=== PATIENT | female | born 1965 | race Caucasian/White ===

== ENCOUNTER 2022-12-21 08:52 | Outpatient (REF) | payer BC, SELFPAY ==
--- NOTE | ~2022-12-21 | MR_ITS ---
EXAMINATION: MR ANGIOGRAPHY BRAIN WITHOUT CONTRAST CLINICAL INFORMATION: Follow-up aneurysm COMPARISON: MRA head 09/02/2018 TECHNIQUE: 3D [id number] MR angiography was performed through the brain without the use of intravenous gadolinium and axial source images were reviewed along with rotating MIPs. FINDINGS: Stable appearance of a 1 mm anteriorly projecting vascular protrusion arising from the anterior communicating artery (image 73, series 2), which may reflect a small aneurysm. No other new or enlarging intracranial saccular aneurysm. Normal flow-related signal is seen within the anterior and posterior circulation. No focal flow-limiting stenosis or proximal large artery occlusion. No arteriovenous shunting lesion. Limited imaging of the brain demonstrates mild lateral ventriculomegaly somewhat disproportionate to sulcal prominence, stable since prior examination. Partially imaged postsurgical changes in the left parotid region. MR/MR angio head wo con IMPRESSION: Stable appearance of a 1 mm anteriorly projecting vascular protrusion arising from the anterior communicating artery (image 73, series 2), which may reflect a small aneurysm. No other new or enlarging intracranial saccular aneurysm.
== END 2022-12-21 08:53 | disposition home or self-care (01) ==
LOC: HO.MRI 08:52
PROVIDERS: PCP Nurse Practitioner Family; Visit Provider Nurse Practitioner Family
DX: I67.1 Cerebral aneurysm, nonruptured (principal)
CPT/HCPCS: 70544

== ENCOUNTER 2023-03-04 15:40 | Inpatient (IN) | payer BC, MEDICARE, SELFPAY ==
--- NOTE | ~2023-03-04 | XR_ITS ---
EXAMINATION: XR CHEST CLINICAL INFORMATION: Shortness of breath. COMPARISON: None available. TECHNIQUE: 2 views of the chest were obtained. FINDINGS: The cardiomediastinal silhouette is normal. There is no focal lung consolidation or pleural effusion. The bony structures and soft tissues are unremarkable. XR/XR chest 2V IMPRESSION: No active cardiopulmonary disease.
--- NOTE | ~2023-03-04 | CT_ITS ---
EXAMINATION: CT CHEST WITHOUT CONTRAST CLINICAL INFORMATION: Shortness of breath, hypoxia. COMPARISON: No similar priors. TECHNIQUE: Multidetector volumetric CT imaging of the chest was done. Axial MIP volume rendering provided. Sagittal and coronal reformatted images were obtained. This CT examination was performed using dose optimization techniques as appropriate, variously including the following: *Automated exposure control *Adjustment of mA and/or kV according to patient size (this includes techniques or standardized protocols for targeted exams where dose is matched to indication/reason for exam; i.e. extremities or head) *Use of iterative reconstruction technique DLP: 322 mGy-cm FINDINGS: LUNGS: Moderate to severe diffuse bronchial wall thickening with scattered foci of intrabronchial mucous secretions. Scattered mosaic attenuation of lung parenchyma. No dense consolidation. Central airways are patent. Multiple solid bilateral pulmonary nodules largest in the right upper lobe measuring 5 mm (image 129 series 4). MEDIASTINUM: Normal heart size. No pericardial effusion. No mediastinal lymphadenopathy. Normal appearance of the thyroid gland. Evaluation of the hilar structures is limited in the absence of IV contrast. CORONARY ARTERY CALCIFICATION: Multivessel coronary artery calcifications. PLEURA: No pleural effusion or pneumothorax. AXILLA: No axillary lymphadenopathy. UPPER ABDOMEN: Limited noncontrast examination without significant abnormality. OSSEOUS STRUCTURES: No acute or aggressive appearing osseous findings. CT/CT chest wo IV con IMPRESSION: 1. Moderate to severe diffuse bronchial wall thickening with scattered foci of intrabronchial mucous secretions and mosaic attenuation of the lung parenchyma. These findings are suggestive of an infectious or inflammatory process of the small airways with some degree of air trapping. 2. Multiple solid pulmonary nodules, largest measuring 5 mm. Assuming patient has no history of malignancy, recommend follow-up per Fleischner Society recommendations. According to the UPDATED 2017 Fleischner Society recommendations, the advised followup imaging for solid nodules < 6 mm is: LOW RISK PATIENT: No routine follow up. HIGH RISK PATIENT: Optional CT at 12 months. Fleischner guidelines were followed.
[2023-03-04 15:57] VITALS: BP 158/80; BP 182/103; PULSE 77; PULSE 90; RESP 28; TEMP 36.1; O2SAT 94; O2SAT 99; BMI 31.0
--- NOTE | 2023-03-04 16:24 | ECG_ITS ---
Test Reason : cp Blood Pressure : / mmHG Vent. Rate : 075 BPM Atrial Rate : 075 BPM P-R Int : 134 ms QRS Dur : 082 ms QT Int : 374 ms P-R-T Axes : 063 073 -27 degrees QTc Int : 417 ms Normal sinus rhythm T wave abnormality, consider inferior ischemia Abnormal ECG When compared with ECG of 07-JUL-2011 11:32, No significant change was found Referred By: Sue Devries Electronically Signed By:KLAUDIA CLEMENS
--- NOTE | 2023-03-04 16:25 | ED.SOB ---
HPI - SOB/Dyspnea General Chief Complaint: Dyspnea Stated Complaint: diff breathing since yesterday Time Seen by Provider: 03/04/23 16:00 Source: patient Mode of arrival: ambulatory Limitations: no limitations History of Present Illness HPI Narrative: patient is a 58-year-old female who presents emergency department for evaluation of shortness of breath. She reports 4 days ago she began with a runny nose sore throat and a mild cough that became progressively worse. For the past 2 days she has been having shortness of breath with productive cough; yellow phlegm, substernal chest pain. She is a long-time smoker, denies any diagnosed respiratory conditions but does believe that she likely has underlying COPD. she has a pulse oximeter at home and she states that yesterday night her O2 saturation was in the 70s for approximately 1 hour. She did not contact EMS at that time as she did not want to spend the night in the hospital. Her O2 saturation reportedly dropped again today while walking at home, and Today she states that her shortness of breath was much worse and she did not feel safe to remain at home which prompted her to call. She denies known fever, difficulty swallowing, edema, dizziness, lightheadedness, numbness or tingling of the extremities, recent lower extremity redness pain swelling or prolonged immobilization, nor personal history of DVT/ PE/ malignancy. Related Data Home Medications Medication Instructions Recorded Confirmed atorvastatin 80 mg tablet 80 mg PO DAILY 03/04/23 03/04/23 baclofen 10 mg tablet 10 mg PO TID 03/04/23 03/04/23 [id number] 1 tab PO DAILY PRN Headache 03/04/23 03/04/23 50 mg-325 mg-40 mg tablet duloxetine 60 mg capsule,delayed 60 mg PO BID 03/04/23 03/04/23 release gabapentin 300 mg capsule 1,200 mg PO TID 03/04/23 03/04/23 hydrocodone 5 mg-acetaminophen 325 1 tab PO DAILY PRN Pain 03/04/23 03/04/23 mg tablet hyoscyamine sulfate 0.125 mg tablet 0.125 - 0.25 mg PO Q4-6H PRN 03/04/23 03/04/23 Abdominal Discomfort lorazepam 1 mg tablet 1 mg PO DAILY PRN Anxiety 03/04/23 03/04/23 oxcarbazepine 600 mg tablet 600 mg PO BID 03/04/23 03/04/23 prazosin 1 mg capsule 1 mg PO BEDTIME 03/04/23 03/04/23 Allergies Allergy/AdvReac Type Severity Reaction Status Date / Time Iodinated Contrast Media Allergy Intermediate HIVES Unverified 02/29/20 14:45 [IV CONTRAST] acetaminophen [From VICODIN] Allergy Unknown VOMITING Unverified 02/29/20 14:45 hydrocodone [From VICODIN] Allergy Unknown VOMITING Unverified 02/29/20 14:45 latex [LATEX] Allergy Unknown RASH Unverified 02/29/20 14:45 oxycodone [From PERCOCET] Allergy Unknown VOMITING Unverified 02/29/20 14:45 procaine [From Novocain] Allergy Unknown HIVES Unverified 02/29/20 14:45 morphine [MORPHINE] AdvReac Unknown VOMITING Unverified 02/29/20 14:45 Review of Systems Review of Systems: Constitutional : No Fever, No Chills ENT/Mouth : positive sore throat, positive Rhinorrhea, No Swallowing Difficulty Eyes: No Eye Pain, No Swelling, No Redness Cardiovascular : positive Chest Pain, positive SOB, No Orthopnea, no Edema Respiratory : positive Cough, positive Sputum, positive Wheezing, positive dyspnea Gastrointestinal : No Nausea, No Vomiting, No Diarrhea, No abdominal Pain, No Hematochezia, No Melena Genitourinary : No Dysuria, No Urinary Frequency, No Hematuria Musculoskeletal : No joint pain, No Myalgias Skin : No Skin Lesions, No rash Neuro : No Weakness, No Numbness, No Dizziness, No Headache Psych : No Anxiety/Panic, No Depression Heme/Lymph: No Bruising, No Lymphadenopathy Endocrine : No Polyuria, No Polydipsia Yes all other systems are reviewed and are negative [facility] Past Medical History Attestation statement: The following information was validated with the patient. Source: old records reviewed Medical History Mixed hyperlipidemia Peripheral neuropathy Tobacco use disorder Mood disorder Social History Social History Household Members: Spouse Housing: House Do you presently have visiting nurse or other home services: No Alcohol intake: current Alcohol intake frequency: holidays/special occasions only Patient Tobacco Use Status: Current everyday Tobacco user Tobacco use type: Cigarette Cigarette Packs Per Day: 1 Cigarettes Per Day: 20.0 Smoked in Last 30 Days: Yes Patient Interested in Nicotine Replacement: No Use of substances other than those prescribed or required for medical reasons: No Substance Use Type: Marijuana Currently Displaying Signs/Symptoms of Drug Intoxication Withdrawal: No Have you been hit, kicked, punched, or otherwise hurt by someone within the past year? If so, by whom?: No Do you feel safe in your current relationship?: Yes Is there a partner from a previous relationship who is making you feel unsafe now?: No Are you made to feel afraid or neglected: No Advance Directives: No Advance Directives Information Provided: Yes Do you have thoughts of harming others: None Do you have a plan to hurt others: No Plan Recently lost weight without trying: No Eating poorly because of decreased appetite: No Nutrition Risks: No Nutritional Risk Patient : No : No Poor oral hygiene: No Physical Exam Vital Signs: Vital Signs: Last Vital Signs Temp 97 F 03/04/23 15:57 Pulse 80 03/04/23 18:29 Resp 22 H 03/04/23 18:29 BP 172/70 H 03/04/23 18:29 Pulse Ox 94 03/04/23 18:29 O2 Del Method Nasal Cannula 03/04/23 18:29 O2 Flow Rate 4 03/04/23 18:29 Oxygen Flow Rate 4 03/04/23 15:57 BMI result Body Mass Index 31.0 Appearance: Alert.?Oriented to person, place and time. No acute distress.?Normal affect. Eyes: Pupils equal, round and reactive to light.?EOMI. No nystagmus. ENT: Pharynx normal.? TM normal bilaterally.? Neck: Normal inspection.? Neck supple.?? No cervical lymphadenopathy CVS: Heart sounds normal. Normal heart rate and rhythm.? Pulses normal.?? Respiratory: Lung sounds with inspiratory and expiratory wheezing bilaterally, prolonged expiratory phase, increased work of breathing, speaking 1-2 word sentences Abdomen: Soft and non-tender. Normoactive bowel sounds. ? Skin: Skin warm and dry.? Normal skin color.? Extremities: No lower extremity edema.? No calf ttp? Neuro: Moves all extremities spontaneously. Sensation intact bilaterally. CN II-XII intact. No focal neuro deficits. Ambulates with normal steady gait. Course Reevaluation(s) Reevaluation #1: CBC reveals no leukocytosis or anemia. CMP is overall unremarkable. High sensitive troponin 2.9, EKG revealing normal sinus rhythm with T-wave inversion in the inferior leads ( seen on prior EKG in 2011), no ST elevation, no ST depression, ventricular rate of 75 with normal AL interval, and QTC 417, unlikely ACS. COVID- 19 and influenza testing are negative. Chest x-ray reveals no acute cardiopulmonary findings. She reports improvement in her shortness of breath after receiving albuterol 5 mg nebulizer and Solu-Medrol. She is speaking longer sentences. Notable improvement in inspiratory wheezing, however expiratory wheezing and prolonged expiratory phase persists. She ambulated to the bathroom and back to her room, continued to have room air hypoxia with O2 saturation down to 87%. D-dimer below detectable limits, unlikely pulmonary embolism. Plan to obtain CT of the chest for further evaluation/possible pneumonia. Time: 18:45 Reevaluation #2: Spoke with hospitalist accepts patient for admission to medicine service for acute hypoxic respiratory failure, at this time CT of the chest is pending , suspect she likely has underlying COPD given smoking history. Time: 19:53 Medications Administered Generic Name Dose Route Start Last Admin Trade Name Freq PRN Reason Stop Dose Admin Acetaminophen/Butalbital/Caffeine 1 tab 03/04/23 20:07 03/05/23 00:04 Butalb/Acetamin/Caff 50/325/40 Tablet PO 1 tab DAILY PRN Administration Headache Baclofen 10 mg 03/04/23 21:00 03/04/23 22:05 Baclofen 10 Mg Tablet PO 10 mg TID CHAPARRO Administration Benzonatate 200 mg 03/04/23 20:47 03/05/23 00:04 Benzonatate 100 Mg Capsule PO 200 mg TID PRN Administration Cough Duloxetine HCl 60 mg 03/04/23 21:00 03/04/23 22:05 Duloxetine Hcl 60 Mg Capsule. PO 60 mg BID CHAPARRO Administration Enoxaparin Sodium 40 mg 03/04/23 21:00 03/04/23 22:12 Enoxaparin Sodium 40 Mg/0.4 Ml Syringe SUBCUT 40 mg Q24H CHAPARRO Administration Gabapentin 1,200 mg 03/04/23 21:00 03/04/23 22:05 Gabapentin 400 Mg Capsule PO 1,200 mg TID CHAPARRO Administration Azithromycin 500 mg/ Sodium 250 mls @ 125 mls/hr 03/04/23 21:00 03/05/23 00:29 Chloride IV Infused Q24H CHAPARRO Infusion Lorazepam 1 mg 03/04/23 20:07 03/04/23 22:23 Lorazepam 1 Mg Tablet PO 1 mg DAILY PRN Administration Anxiety Melatonin 6 mg 03/04/23 20:31 03/04/23 22:23 Melatonin 3 Mg Tablet PO 6 mg BEDTIME PRN Administration Insomnia Oxcarbazepine 600 mg 03/04/23 21:00 03/04/23 22:05 Oxcarbazepine 300 Mg Tablet PO 600 mg BID CHAPARRO Administration Prazosin HCl 1 mg 03/04/23 21:00 03/04/23 22:15 Prazosin Hcl 1 Mg Capsule PO Not Given BEDTIME CHAPARRO Protocol Sodium Chloride 3 ml 03/05/23 00:00 03/04/23 23:29 0.9 % Sodium Chloride Flush 3 Ml Syringe IVFLUSH Not Given QSHIFT CHAPARRO Discontinued Medications Generic Name Dose Route Start Last Admin Trade Name Katya PRN Reason Stop Dose Admin Hydrocodone Bitart/Acetaminophen 1 tab 03/04/23 23:40 03/05/23 00:04 Hydrocodone Bit/Acetam 5/325 Tablet PO 03/04/23 23:41 1 tab ONCE ONE Administration Albuterol Sulfate 2.5 mg/ 5 mg 03/04/23 17:14 03/04/23 17:18 Albuterol Sulfate 2.5 mg INHALE 03/04/23 17:15 5 mg ONCE ONE Administration Albuterol Sulfate 2.5 mg/ 0 mg 03/04/23 16:30 03/04/23 16:51 Albuterol/Ipratropium 3 ml INHALE 03/04/23 16:31 1 dose ONCE ONE Administration Ceftriaxone Sodium 1 gm/ 50 mls @ 100 mls/hr 03/04/23 19:26 03/04/23 23:06 Sodium Chloride IV 03/04/23 19:55 Infused ONCE ONE Infusion Methylprednisolone Sodium Succinate 125 mg 03/04/23 16:24 03/04/23 17:01 Methylprednisolone Sod Succ 125 Mg/2 Ml Vial IVPUSH 03/04/23 16:25 125 mg ONCE ONE Administration Medical Decision Making Medical Decision Making MDM Narrative: patient is a 58-year-old female with past medical history of hyperlipidemia, migraines, depression, cerebral aneurysm, 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 At the time my examination she has increased work of breathing, speaking 1-2 word sentences despite receiving nebulizer treatment from EMS, is currently on 4 L via nasal cannula her room air O2 saturation was 90% upon EMS arrival. Will obtain CBC to evaluate for leukocytosis/ anemia, CMP and lipase to evaluate for abnormal electrolytes /abnormal renal function/ abnormal hepatic/biliary function, BNP, viral testing EKG and troponin to evaluate for ischemia/ACS. Chest x-ray to evaluate for consolidation/ infiltrate/ mass/ pulmonary congestion and Urinalysis. currently does not meet SIRS criteria, tachypnea but she is afebrile and without tachycardia Differential Diagnosis Differential Diagnoses: The differential diagnosis associated with the presentation includes ( COVID- 19, influenza, coronavirus, adenovirus, CHF, pulmonary embolism, pneumonia, ACS) Admission/Observation Consideration of admission/observation: Escalation of care including admission/observation considered ( considered admission for shortness of breath and room air hypoxia, see course narrative for further detail) Consult Healthcare Provider Management of the patient was discussed with: Hospitalist Lab Data MDM Lab Attestation statement: I reviewed the patient's lab results. ( see course narrative for further detail) 03/04/23 17:30 03/04/23 17:30 Labs: Lab Results 03/04/23 03/04/23 Range/Units 17:30 18:44 WBC 9.7 (4.8-10.8) X10*3/uL RBC 4.83 (4.20-5.50) X10*6/uL Hgb 15.5 (12.0-16.0) g/dl Hct 45.9 (37.0-47.0) % MCV 95.0 (80.0-98.0) fL MCH 32.1 (27.0-33.0) pg MCHC 33.8 (31.0-35.0) g/dl RDW 13.2 (11.0-16.0) % Plt Count 292 (160-400) X10*3/uL MPV 9.6 (9.4-12.3) fL Immature Gran % (Auto) 0.3 (0.0-0.4) % Neut % (Auto) 56.5 (45-73) % Lymph % (Auto) 24.8 (20-40) % [place] % (Auto) 15.6 H (2-11) % Eos % (Auto) 2.3 (0-4) % Baso % (Auto) 0.5 (0-2) % Lymph # (Auto) 2.4 (1.2-4.9) X10*3/uL [place] # (Auto) 1.5 H (0.1-1.2) X10*3/uL Eos # (Auto) 0.2 (0.0-0.4) X10*3/uL Baso # (Auto) 0.1 (0.0-0.2) X10*3/uL Abs Immat Gran (auto) 0.03 (0.00-0.03) X10*3/uL Absolute Neuts (auto) 5.5 (2.0-8.3) x10*3/uL Absolute Nucleated RBC 0.000 (0.0-0.012) X10*3/uL Nucleated RBC % (auto) 0.0 (0.0-0.2) /100WBC PT 10.8 L (11.1-13.3) SEC INR 0.9 (0.9-1.1) D-Dimer High Sensitivty < 150 NG/ML Sodium 141 (135-145) mmol/L Potassium 3.5 (3.3-5.1) mmol/L Chloride 106 (96-108) mmol/L Carbon Dioxide 27 (22-29) mmol/L Anion Gap 12 (12-20) BUN 11 (9-16) mg/dL Creatinine 0.64 (0.5-1.4) mg/dL Estim Creat Clear Calc 86.2 Estimated GFR > 60 Random Glucose 131 H (60-115) mg/dL Calcium 9.8 (8.4-10.2) mg/dL Magnesium 2.1 (1.6-2.6) mg/dL Total Bilirubin 0.3 (0.0-1.0) mg/dL AST 17 (5-31) U/L ALT 13 (0-31) U/L Alkaline Phosphatase 90 (39-117) U/L Troponin I High Sens 2.9 (<3.5-17.0) ng/L B-Natriuretic Peptide 24 (<100) pg/mL Total Protein 7.1 (6.5-8.0) g/dL Albumin 4.2 (3.5-5.0) g/dL Lipase 12 (8-78) U/L COVID-19 (SONAL) Negative (Negative) COVID-19 Clin Com See Note Influenza Type A (DERREK) Negative (Negative) Influenza Type B (DERREK) Negative (Negative) Influenza A & B Note See Note Radiology Impression Discussion of test interpretation with radiology: I have reviewed the radiologist's reading. Radiologist Impression: XR/XR chest 2V IMPRESSION: No active cardiopulmonary disease. CT/CT chest wo IV con IMPRESSION: 1. Moderate to severe diffuse bronchial wall thickening with scattered foci of intrabronchial mucous secretions and mosaic attenuation of the lung parenchyma. These findings are suggestive of an infectious or inflammatory process of the small airways with some degree of air trapping. 2. Multiple solid pulmonary nodules, largest measuring 5 mm. Assuming patient has no history of malignancy, recommend follow-up per Fleischner Society recommendations. According to the UPDATED 2017 Fleischner Society recommendations, the advised followup imaging for solid nodules < 6 mm is: LOW RISK PATIENT: No routine follow up. HIGH RISK PATIENT: Optional CT at 12 months. Independent Historian Clinical information obtained from an independent historian. History obtained from or confirmed by: EMS ( as per HPI) Discharge Plan Discharge Clinical Impression: Acute hypoxemic respiratory failure Patient Disposition: Admitted As Inpatient Interventions: Admission Worksheet (ED) Last Done: 03/04/23 22:57
[2023-03-04 16:33] VITALS: PULSE 75; RESP 26; O2SAT 96
[2023-03-04 16:38] VITALS: BP 184/68; PULSE 75; RESP 20; O2SAT 93
[2023-03-04] MEDS: Albuterol Sulfate 2.5 MG, Albuterol/Iprat 2.5/0.5MG 3 ML 3 ML INHALE (16:51)
[2023-03-04] MEDS: methylPREDNISolone Sod Succ 125 MG/2 ML VIAL IVPUSH (17:01)
[2023-03-04] MEDS: Albuterol Sulfate 2.5 MG, Albuterol Sulfate (0.083%) 2.5 MG 5 MG INHALE (17:18)
[2023-03-04 17:20] VITALS: PULSE 75; RESP 24; O2SAT 95
[2023-03-04 17:36] LABS: MANUAL DIFF FLAG NO
[2023-03-04 17:40] LABS: Basophils Absolute Auto 0.1 X10*3/uL (0.0-0.2); Basophils Percent Auto 0.5 % (0-2); Eosinophils Absolute Auto 0.2 X10*3/uL (0.0-0.4); Eosinophils Percent Auto 2.3 % (0-4); Hematocrit 45.9 % (37.0-47.0); Hemoglobin 15.5 g/dl (12.0-16.0); Imm Gran Abs Auto 0.03 X10*3/uL (0.00-0.03); Imm Gran Pct Auto 0.3 % (0.0-0.4); Lymphocytes Absolute Auto 2.4 X10*3/uL (1.2-4.9); Lymphocytes Percent Auto 24.8 % (20-40); Mean Corpuscular HGB Conc 33.8 g/dl (31.0-35.0); Mean Corpuscular Hemoglobin 32.1 pg (27.0-33.0); Mean Platelet Volume 9.6 fL (9.4-12.3); Monocytes Absolute Auto 1.5 X10*3/uL (0.1-1.2); Monocytes Percent Auto 15.6 % (2-11); Neutrophils Absolute Auto 5.5 x10*3/uL (2.0-8.3); Neutrophils Percent Auto 56.5 % (45-73); Platelet Count 292 X10*3/uL (160-400); Red Blood Count 4.83 X10*6/uL (4.20-5.50); Red Cell Distribution Width 13.2 % (11.0-16.0); SCAN SMEAR FLAG 1; White Blood Count 9.7 X10*3/uL (4.8-10.8)
[2023-03-04 17:43] LABS: INTERNATIONAL NORM RATIO 0.9 (0.9-1.1); Prothrombin Time 10.8 SEC (11.1-13.3)
[2023-03-04 17:56] LABS: Alanine Aminotransferase 13 U/L (0-31); Albumin Level 4.2 g/dL (3.5-5.0); Alkaline Phosphatase 90 U/L (39-117); Anion Gap 12 (12-20); Aspartate Amino Transferase 17 U/L (5-31); Bilirubin Total 0.3 mg/dL (0.0-1.0); Blood Urea Nitrogen 11 mg/dL (9-16); Calcium 9.8 mg/dL (8.4-10.2); Carbon Dioxide 27 mmol/L (22-29); Chloride 106 mmol/L (96-108); Creatinine Clr Calc Pharmacy 86.2; Estimated Glomerular Filt Rate > 60; Glucose Random 131 mg/dL (60-115); Lipase 12 U/L (8-78); Magnesium 2.1 mg/dL (1.6-2.6); Potassium 3.5 mmol/L (3.3-5.1); Sodium 141 mmol/L (135-145); Total Protein 7.1 g/dL (6.5-8.0)
[2023-03-04 17:59] LABS: COVID-19 Test Negative (Negative); IDNOW Serial# BCCEAD1C
[2023-03-04 18:00] LABS: IDNOW Serial# 08D9AD1C; Influenza A Negative (Negative); Influenza B2 Negative (Negative)
[2023-03-04 18:01] LABS: Troponin-I High Sensitivity 2.9 ng/L (<3.5-17.0)
[2023-03-04 18:02] LABS: B Type Natriuretic Peptide 24 pg/mL (<100)
[2023-03-04 18:29] VITALS: BP 172/70; PULSE 80; RESP 22; O2SAT 94
[2023-03-04 18:56] LABS: D Dimer High Sensitivity < 150 NG/ML
--- NOTE | 2023-03-04 19:26 | PHA.MEDREC ---
Pharmacy Consult ? Medication Reconciliation Pharmacy has completed the medication reconciliation. Patient's family had list of medications. Patient was able to confirm all the medications. Reports she has not start prazosin yet but would like to. Her doctor said to start with prazosin 1 tablet then increase 2 tablet if 1 tablet was tolerable.
--- NOTE | 2023-03-04 20:33 | P.HPHOSP_ITS ---
History of Present Illness Date of Service: 03/04/23 Chief Complaint: Dyspnea This is a 58-year-old female with pertinent history of mood disorder, mixed hyperlipidemia, peripheral neuropathy, tobacco use disorder who presents to the emergency department for evaluation of dyspnea. Patient states that about 4 days prior to presentation she has been having runny nose and watering of eyes. Soon she began to develop a cough with sputum production. Subsequently patient was having dyspnea, worse with ambulation and associated wheezing. Patient states her O2 sat at home was in the 70s. Is a former smoker and has smoked for 40 years. No official diagnosis of COPD or asthma. Does admit chills. But no fever. She denies chest discomfort, palpitations, abdominal pain, changes in urinary or bowel habits. In the emergency department, patient requiring supplemental oxygen and continued to have wheezing despite multiple DuoNeb treatments Review of Systems 2 Constitutional: Constitutional: Reports chills and Reports fatigue Cardiovascular: Cardiovascular: Reports dyspnea on exertion Respiratory: Respiratory: Reports cough, Reports dyspnea on exertion and Reports wheezing Gastrointestinal: Gastrointestinal: Reports no additional gastrointestinal complaints Genitourinary: Genitourinary: Reports no additional female genitourinary complaints Endocrine: Endocrine: Reports fatigue Allergic/Immunologic: Allergic/Immunologic: Reports wheezing [facility] Medical History Mixed hyperlipidemia Peripheral neuropathy Tobacco use disorder Mood disorder Pertinent family history: No family history of early CAD Social History Advance Directives: No Advance Directives Information Provided: Yes Meds Allergies Allergy/AdvReac Type Severity Reaction Status Date / Time Iodinated Contrast Media Allergy Intermediate HIVES Unverified 02/29/20 14:45 [IV CONTRAST] acetaminophen [From VICODIN] Allergy Unknown VOMITING Unverified 02/29/20 14:45 hydrocodone [From VICODIN] Allergy Unknown VOMITING Unverified 02/29/20 14:45 latex [LATEX] Allergy Unknown RASH Unverified 02/29/20 14:45 oxycodone [From PERCOCET] Allergy Unknown VOMITING Unverified 02/29/20 14:45 procaine [From Novocain] Allergy Unknown HIVES Unverified 02/29/20 14:45 morphine [MORPHINE] AdvReac Unknown VOMITING Unverified 02/29/20 14:45 Active Medications: Current Medications Acetaminophen/Butalbital/Caffeine (Butalb/Acetamin/Caff 50/325/40 Tablet) 1 tab PO DAILY PRN PRN Reason: Headache Atorvastatin Calcium (Atorvastatin Calcium 80 Mg Tablet) 80 mg PO DAILY CHAPARRO Baclofen (Baclofen 10 Mg Tablet) 10 mg PO TID CHAPARRO Duloxetine HCl (Duloxetine Hcl 60 Mg Capsule.Dr) 60 mg PO BID CHAPARRO Gabapentin (Gabapentin 400 Mg Capsule) 1,200 mg PO TID CHAPARRO Lorazepam (Lorazepam 1 Mg Tablet) 1 mg PO DAILY PRN PRN Reason: Anxiety Non-Formulary Medication (Hyoscyamine Sulfate) 0.125 - 0.25 mg PO Q4-6H PRN PRN Reason: Abdominal Discomfort Oxcarbazepine (Oxcarbazepine 300 Mg Tablet) 600 mg PO BID CHAPARRO Prazosin HCl (Prazosin Hcl 1 Mg Capsule) 1 mg PO BEDTIME CHAPARRO; Protocol Home Medications Medication Instructions Recorded Confirmed Last Taken Type atorvastatin 80 mg tablet 80 mg PO DAILY 03/04/23 03/04/23 03/04/23 History baclofen 10 mg tablet 10 mg PO TID 03/04/23 03/04/23 03/04/23 History jpqkceirdv-qsvhigqtqphzs-[id number] 1 tab PO DAILY PRN Headache 03/04/23 03/04/23 Unknown History 50 mg-325 mg-40 mg tablet duloxetine 60 mg capsule,delayed 60 mg PO BID 03/04/23 03/04/23 03/04/23 History release gabapentin 300 mg capsule 1,200 mg PO TID 03/04/23 03/04/23 03/04/23 History hydrocodone 5 mg-acetaminophen 325 1 tab PO DAILY PRN Pain 03/04/23 03/04/23 Unknown History mg tablet hyoscyamine sulfate 0.125 mg tablet 0.125 - 0.25 mg PO Q4-6H PRN 03/04/23 03/04/23 Unknown History Abdominal Discomfort lorazepam 1 mg tablet 1 mg PO DAILY PRN Anxiety 03/04/23 03/04/23 Unknown History oxcarbazepine 600 mg tablet 600 mg PO BID 03/04/23 03/04/23 03/04/23 History prazosin 1 mg capsule 1 mg PO BEDTIME 03/04/23 03/04/23 03/04/23 History Physical Exam 2 Vital Signs and Narrative: Vital Signs: Last Vital Signs Temp 97 F 03/04/23 15:57 Pulse 80 03/04/23 18:29 Resp 22 H 03/04/23 18:29 BP 172/70 H 03/04/23 18:29 Pulse Ox 94 03/04/23 18:29 O2 Del Method Nasal Cannula 03/04/23 18:29 O2 Flow Rate 4 03/04/23 18:29 Oxygen Flow Rate 4 03/04/23 15:57 BMI result Body Mass Index 31.0 Middle-aged female lying in bed in mild distress on supplemental oxygen Neck supple, no JVD Regular rate and rhythm, S1-S2 heard Bilateral wheezing without crackles Abdomen soft nontender, no guarding, no rigidity Patient is awake, alert and oriented to self, place, time and person ; no focal motor deficit Psych: Normal mood No pedal edema Results Labs 03/04/23 17:30 03/04/23 17:30 Labs: Laboratory Results - last 24 hr 03/04/23 03/04/23 17:30 18:44 MCV 95.0 MCH 32.1 MCHC 33.8 RDW 13.2 Plt Count 292 MPV 9.6 Immature Gran % (Auto) 0.3 Neut % (Auto) 56.5 Lymph % (Auto) 24.8 [place] % (Auto) 15.6 H Eos % (Auto) 2.3 Baso % (Auto) 0.5 Lymph # (Auto) 2.4 [place] # (Auto) 1.5 H Eos # (Auto) 0.2 Baso # (Auto) 0.1 Abs Immat Gran (auto) 0.03 Absolute Neuts (auto) 5.5 Absolute Nucleated RBC 0.000 Nucleated RBC % (auto) 0.0 PT 10.8 L INR 0.9 D-Dimer High Sensitivty < 150 Anion Gap 12 Estim Creat Clear Calc 86.2 Estimated GFR > 60 Random Glucose 131 H Calcium 9.8 Magnesium 2.1 Total Bilirubin 0.3 AST 17 ALT 13 Alkaline Phosphatase 90 B-Natriuretic Peptide 24 Total Protein 7.1 Albumin 4.2 Lipase 12 COVID-19 (SONAL) Negative COVID-19 Clin Com See Note Influenza Type A (DERREK) Negative Influenza Type B (DERREK) Negative Influenza A & B Note See Note Imaging Radiologist's Impressions: Impressions Chest X-Ray 03/04/23 18:01 IMPRESSION: No active cardiopulmonary disease. Assessment and Plan (1) Acute hypoxemic respiratory failure: Status: Acute Plan This is a 58-year-old female with pertinent history of mood disorder, mixed hyperlipidemia, peripheral neuropathy who presents to the emergency department for evaluation of dyspnea. #. Acute hypoxemic respiratory failure due to acute exacerbation of obstructive lung disease. Patient is a former smoker and likely has underlying COPD. Will admit patient with scheduled and p.r.n. DuoNebs. Initiating systemic steroids. Initiating azithromycin for pleiotropic effect. Will need inhalers and discharge and outpatient follow-up with pulmonology. Continue supplemental oxygen and wean as tolerated. Maintain oxygen saturation greater than 88% #. Mixed hyperlipidemia. On statin #. Mood disorder. Continue home mood stabilizers #. Peripheral neuropathy: On gabapentin DVT prophylaxis: Lovenox Full code Admit as inpatient and will require two night minimum hospital stay for supplemental oxygen Time Spent With Patient Time: Total time managing care of this patient today ____ minutes. Quality Stroke Does the patient have a stroke diagnosis?: No VTE Prior VTE?: No VTE Risk Level:: Medical - moderate - high VTE Device Contraindication: Treatment Not Indicated VTE Drug Contraindication: N/A - Med Ordered
[2023-03-04] MEDS: DULoxetine HCl 60 MG CAPSULE.DR PO (22:05)
[2023-03-04] MEDS: Gabapentin 400 MG CAPSULE 1200 MG PO (22:05)
[2023-03-04] MEDS: OXcarbazepine 300 MG TABLET 600 MG PO (22:05)
[2023-03-04] MEDS: Baclofen 10 MG TABLET PO (22:05)
[2023-03-04] MEDS: cefTRIAXone sodium 1 GM in 0.9 % Sodium Chloride 50 ML IV (22:08)
[2023-03-04] MEDS: Enoxaparin Sodium 40 MG/0.4 ML SYRINGE SUBCUT (22:12)
[2023-03-04] MEDS: Melatonin 3 MG TABLET 6 MG PO (22:23)
[2023-03-04] MEDS: LORazepam 1 MG TABLET PO (22:23)
[2023-03-04] MEDS: Azithromycin 500 MG in 0.9 % Sodium Chloride 250 ML 125 MG IV (22:24)
[2023-03-05] VITALS (10 sets, daily range): BP systolic 128–143; BP diastolic 65–74; PULSE 74–99; RESP 18–24; TEMP 36.3–36.4; O2SAT 92–96; BMI 31.0
[2023-03-05] MEDS: Benzonatate 100 MG CAPSULE 200 MG PO ×2 (00:04→21:34)
[2023-03-05] MEDS: HYDROcodone Bit/Acetam 5/325 TABLET 1 TAB PO ×2 (00:04→11:05)
[2023-03-05] MEDS: Butalb/Acetamin/Caff 50/325/40 TABLET 1 TAB PO ×2 (00:04→21:37)
[2023-03-05] MEDS: methylPREDNISolone Sod Succ 40 MG/ML VIAL IVPUSH ×2 (04:08→17:47)
[2023-03-05] MEDS: Albuterol/Iprat 2.5/0.5MG 3 ML AMPUL.NEB INHALE ×4 (07:52→19:56)
[2023-03-05] MEDS: Gabapentin 400 MG CAPSULE 1200 MG PO ×3 (08:16→21:37)
[2023-03-05 08:17] LABS: Alanine Aminotransferase 11 U/L (0-31); Albumin Level 4.1 g/dL (3.5-5.0); Alkaline Phosphatase 80 U/L (39-117); Anion Gap 16 (12-20); Aspartate Amino Transferase 15 U/L (5-31); Bilirubin Total 0.2 mg/dL (0.0-1.0); Blood Urea Nitrogen 13 mg/dL (9-16); Calcium 9.8 mg/dL (8.4-10.2); Carbon Dioxide 27 mmol/L (22-29); Chloride 105 mmol/L (96-108); Creatinine Clr Calc Pharmacy 86.2; Estimated Glomerular Filt Rate > 60; Glucose Random 94 mg/dL (60-115); Potassium 5.2 mmol/L (3.3-5.1); Sodium 143 mmol/L (135-145); Total Protein 6.9 g/dL (6.5-8.0)
[2023-03-05] MEDS: DULoxetine HCl 60 MG CAPSULE.DR PO ×2 (08:17→21:37)
[2023-03-05] MEDS: OXcarbazepine 300 MG TABLET 600 MG PO ×2 (08:17→21:34)
[2023-03-05] MEDS: Baclofen 10 MG TABLET PO ×3 (08:17→21:37)
[2023-03-05] MEDS: Atorvastatin Calcium 80 MG TABLET PO (08:17)
[2023-03-05] MEDS: 0.9 % Sodium Chloride Flush 3 ML SYRINGE IVFLUSH ×3 (11:06→21:44)
--- NOTE | 2023-03-05 14:04 | HO.PM.IMPN ---
Subjective Subjective Date of Service: 03/05/23 Interval History: seen and examined this morning follow up for COPD exacerbation has ongoing cough Review of Systems Review of Systems: Yes all other systems are reviewed and are negative Constitutional Constitutional: Denies chills and Denies fever(s) Cardiovascular Cardiovascular: Denies chest pain Respiratory Respiratory: Reports cough Gastrointestinal Gastrointestinal: Denies abdominal pain Physical Exam Vital Signs: Vital Signs: Last Vital Signs Temp 97.5 F 03/05/23 07:44 Pulse 80 03/05/23 12:11 Resp 22 H 03/05/23 12:11 BP 142/74 H 03/05/23 07:44 Pulse Ox 92 03/05/23 12:11 O2 Del Method Room Air 03/05/23 12:11 O2 Flow Rate 1 03/05/23 12:11 Oxygen Flow Rate 4 03/04/23 15:57 BMI result Body Mass Index 31.0 Const: General: comfortable and no acute distress; No alert or awake Nutritional Appearance: overweight Orientation/consciousness: patient oriented x3 Resp: Other: b/l expiratory rhochi Effort & Inspection: normal respiratory effort, able to speak in complete sentences, no respiratory distress and no use of accessory muscles Cardio: Rate: regular rate GI: Inspection: No distended Palpation (GI): Soft to palpation Neuro: General: patient oriented x3, moves all extremities and CN's II-XI intact bilaterally Extrem: General: Yes no pedal edema Objective Data Active Medications Acetaminophen (Acetaminophen 325 Mg Tablet) 650 mg PO Q6H PRN PRN Reason: Pain, Mild (Pain Scale 1-3) Acetaminophen/Butalbital/Caffeine (Butalb/Acetamin/Caff 50/325/40 Tablet) 1 tab PO DAILY PRN PRN Reason: Headache Last Admin: 03/05/23 00:04 Dose: 1 tab Documented By: OCHOA Hydrocodone Bitart/Acetaminophen (Hydrocodone Bit/Acetam 5/325 Tablet) 1 tab PO DAILY PRN PRN Reason: Pain, Moderate(Pain Scale 4-6) Last Admin: 03/05/23 11:05 Dose: 1 tab Documented By: NITZA Albuterol/Ipratropium (Albuterol/Iprat 2.5/0.5mg 3 Ml Ampul.Neb) 3 ml INHALE RQ4H WHILE AWAKE [facility] Last Admin: 03/05/23 11:28 Dose: 3 ml Documented By: MARYLU Albuterol/Ipratropium (Albuterol/Iprat 2.5/0.5mg 3 Ml Ampul.Neb) 3 ml INHALE Q4H PRN PRN Reason: Wheezing Atorvastatin Calcium (Atorvastatin Calcium 80 Mg Tablet) 80 mg PO DAILY [facility] Last Admin: 03/05/23 08:17 Dose: 80 mg Documented By: NITZA Baclofen (Baclofen 10 Mg Tablet) 10 mg PO TID [facility] Last Admin: 03/05/23 08:17 Dose: 10 mg Documented By: NITZA Benzonatate (Benzonatate 100 Mg Capsule) 200 mg PO TID PRN PRN Reason: Cough Last Admin: 03/05/23 00:04 Dose: 200 mg Documented By: OCHOA Duloxetine HCl (Duloxetine Hcl 60 Mg Capsule.Dr) 60 mg PO BID [facility] Last Admin: 03/05/23 08:17 Dose: 60 mg Documented By: NITZA Enoxaparin Sodium (Enoxaparin Sodium 40 Mg/0.4 Ml Syringe) 40 mg SUBCUT Q24H [facility] Last Admin: 03/04/23 22:12 Dose: 40 mg Documented By: FRANK Gabapentin (Gabapentin 400 Mg Capsule) 1,200 mg PO TID [facility] Last Admin: 03/05/23 08:16 Dose: 1,200 mg Documented By: NITZA Azithromycin 500 mg/ Sodium (Chloride) 250 mls @ 125 mls/hr IV Q24H [facility] Last Infusion: 03/05/23 00:29 Dose: Infused Documented By: OCHOA Lorazepam (Lorazepam 1 Mg Tablet) 1 mg PO DAILY PRN PRN Reason: Anxiety Last Admin: 03/04/23 22:23 Dose: 1 mg Documented By: FRANK Melatonin (Melatonin 3 Mg Tablet) 6 mg PO BEDTIME PRN PRN Reason: Insomnia Last Admin: 03/04/23 22:23 Dose: 6 mg Documented By: FRANK Methylprednisolone Sodium Succinate (Methylprednisolone Sod Succ 40 Mg/Ml Vial) 40 mg IVPUSH Q12H [facility] Last Admin: 03/05/23 04:08 Dose: 40 mg Documented By: OCHOA Non-Formulary Medication (Hyoscyamine Sulfate) 0.125 - 0.25 mg PO Q4-6H PRN PRN Reason: Abdominal Discomfort Ondansetron HCl (Ondansetron Hcl 4 Mg/2 Ml Vial) 4 mg IVPUSH Q8H PRN PRN Reason: Nausea and Vomiting Oxcarbazepine (Oxcarbazepine 300 Mg Tablet) 600 mg PO BID [facility] Last Admin: 03/05/23 08:17 Dose: 600 mg Documented By: NITZA Prazosin HCl (Prazosin Hcl 1 Mg Capsule) 1 mg PO BEDTIME [facility]; Protocol Last Admin: 03/04/23 22:15 Dose: Not Given Documented By: FRANK Non-Admin Reason: Med Not Available Sodium Chloride (0.9 % Sodium Chloride Flush 3 Ml Syringe) 3 ml IVFLUSH QSHIFT [facility] Last Admin: 03/05/23 11:06 Dose: 3 ml Documented By: NITZA Labs 03/04/23 17:30 03/05/23 07:20 Labs: Laboratory Results - last 24 hr 03/04/23 03/04/23 03/05/23 17:30 18:44 07:20 MCV 95.0 MCH 32.1 MCHC 33.8 RDW 13.2 Plt Count 292 MPV 9.6 Immature Gran % (Auto) 0.3 Neut % (Auto) 56.5 Lymph % (Auto) 24.8 [place] % (Auto) 15.6 H Eos % (Auto) 2.3 Baso % (Auto) 0.5 Lymph # (Auto) 2.4 [place] # (Auto) 1.5 H Eos # (Auto) 0.2 Baso # (Auto) 0.1 Abs Immat Gran (auto) 0.03 Absolute Neuts (auto) 5.5 Absolute Nucleated RBC 0.000 Nucleated RBC % (auto) 0.0 PT 10.8 L INR 0.9 D-Dimer High Sensitivty < 150 Anion Gap 12 16 Estim Creat Clear Calc 86.2 86.2 Estimated GFR > 60 > 60 Random Glucose 131 H 94 Calcium 9.8 9.8 Magnesium 2.1 Total Bilirubin 0.3 0.2 AST 17 15 ALT 13 11 Alkaline Phosphatase 90 80 B-Natriuretic Peptide 24 Total Protein 7.1 6.9 Albumin 4.2 4.1 Lipase 12 COVID-19 (SONAL) Negative COVID-19 Clin Com See Note Influenza Type A (DERREK) Negative Influenza Type B (DERREK) Negative Influenza A & B Note See Note Assessment and Plan (1) Acute hypoxemic respiratory failure: Status: Acute Plan This is a 58-year-old female with pertinent history of mood disorder, mixed hyperlipidemia, peripheral neuropathy who presents to the emergency department for evaluation of dyspnea. Acute hypoxemic respiratory failure due to acute exacerbation of presumed COPD Covid,, flu, RSV negative continue scheduled and p.r.n. DuoNebs, steroids, azithromycin will likely need outpatient follow up Continue supplemental oxygen and wean as tolerated Pulmonary nodules CT chest showing multiple pulm nodules pt reports having chest CT for cancer screening as outpatient and is aware of pulm nodules recommend outpatient follow up Milk Hyperkalemia k 5.2 follow BMP hyperlipidemia continue statin Mood Continue home mood stabilizers Peripheral neuropathy continue gabapentin DVT prophylaxis: Lovenox Full code Requires ongoing inpatient stay for systemic steroids, supplemental oxygen and close monitoring of respiratory status Time Spent With Patient Time: Total time managing care of this patient today ____ minutes. Quality Stroke Does the patient have a stroke diagnosis?: No VTE Prior VTE?: No VTE Risk Level:: Medical - moderate - high VTE Device Contraindication: Treatment Not Indicated VTE Drug Contraindication: N/A - Med Ordered
[2023-03-05] MEDS: Melatonin 3 MG TABLET 6 MG PO (21:34)
[2023-03-05] MEDS: Prazosin HCL 1 MG CAPSULE PO (21:36)
[2023-03-05] MEDS: LORazepam 1 MG TABLET PO (21:36)
[2023-03-05] MEDS: Azithromycin 500 MG in 0.9 % Sodium Chloride 250 ML 125 MG IV (21:38)
[2023-03-05] MEDS: Enoxaparin Sodium 40 MG/0.4 ML SYRINGE SUBCUT (21:38)
[2023-03-06] VITALS (8 sets, daily range): BP systolic 150–163; BP diastolic 62–79; PULSE 83–97; RESP 18–24; TEMP 35.5–36.4; O2SAT 90–95
[2023-03-06] MEDS: methylPREDNISolone Sod Succ 40 MG/ML VIAL IVPUSH ×3 (06:42→19:56)
--- NOTE | 2023-03-06 06:46 | PC.NURSE ---
patient takes pain meds scheduled at home around 6am, 1-2pm, and 8pm. She states her pain is not controlled due to pain med schedule being different from home.
[2023-03-06] MEDS: Albuterol/Iprat 2.5/0.5MG 3 ML AMPUL.NEB INHALE ×4 (06:48→20:43)
[2023-03-06] MEDS: Baclofen 10 MG TABLET PO ×3 (07:33→20:04)
[2023-03-06] MEDS: Atorvastatin Calcium 80 MG TABLET PO ×2 (07:34→20:04)
[2023-03-06] MEDS: DULoxetine HCl 60 MG CAPSULE.DR PO ×2 (07:35→20:04)
[2023-03-06] MEDS: OXcarbazepine 300 MG TABLET 600 MG PO ×2 (07:36→20:04)
[2023-03-06] MEDS: Gabapentin 400 MG CAPSULE 1200 MG PO ×3 (07:36→20:04)
[2023-03-06] MEDS: Benzonatate 100 MG CAPSULE 200 MG PO (07:36)
[2023-03-06] MEDS: HYDROcodone Bit/Acetam 5/325 TABLET 1 TAB PO ×2 (07:39→20:17)
[2023-03-06 09:14] LABS: Anion Gap 14 (12-20); Blood Urea Nitrogen 10 mg/dL (9-16); Calcium 9.9 mg/dL (8.4-10.2); Carbon Dioxide 27 mmol/L (22-29); Chloride 102 mmol/L (96-108); Creatinine Clr Calc Pharmacy 84.8; Estimated Glomerular Filt Rate > 60; Glucose Random 102 mg/dL (60-115); Sodium 139 mmol/L (135-145)
[2023-03-06] MEDS: guaiFENesin LA 600 MG TAB.ER.12H PO ×2 (11:58→20:04)
[2023-03-06] MEDS: 0.9 % Sodium Chloride Flush 3 ML SYRINGE IVFLUSH ×3 (11:59→20:05)
[2023-03-06] MEDS: Lidocaine 4 % Patch ADH..PATCH 1 PATCH TRANSDERMA (12:58)
--- NOTE | 2023-03-06 15:51 | P.PNIM_ITS ---
Subjective Subjective Date of Service: 03/06/23 Interval History: seen and examined this morning follow up for copd exacerbation still with dypsnea on exertion, productive cough no fever, chills no overnight events Review of Systems Review of Systems: Yes all other systems are reviewed and are negative Constitutional Constitutional: Denies chills and Denies fever(s) Cardiovascular Cardiovascular: Denies chest pain, Denies palpitations and Reports dyspnea Respiratory Respiratory: Reports cough and Reports dyspnea Endocrine Endocrine: Denies palpitations Physical Exam 2 Vital Signs: Vital Signs: Last Vital Signs Temp 95.9 F L 03/06/23 15:25 Pulse 86 03/06/23 15:25 Resp 18 03/06/23 15:25 BP 150/78 H 03/06/23 15:25 Pulse Ox 93 03/06/23 15:25 O2 Del Method Nasal Cannula 03/06/23 15:25 O2 Flow Rate 1 03/06/23 15:25 Oxygen Flow Rate 4 03/04/23 15:57 BMI result Body Mass Index 31.0 Const: General: comfortable and no acute distress; No alert or awake N utritional Appearance: overweight Orientation/consciousness: patient oriented x3 Resp: Other: b/l expiratory wheeze Effort & Inspection: normal respiratory effort, able to speak in complete sentences, no respiratory distress and no use of accessory muscles Cardio: Rate: regular rate GI: Inspection: No distended Palpation (GI): Soft to palpation Neuro: General: patient oriented x3, moves all extremities and CN's II-XI intact bilaterally Extrem: General: Yes no pedal edema Objective Data Active Medications Acetaminophen (Acetaminophen 325 Mg Tablet) 650 mg PO Q6H PRN PRN Reason: Pain, Mild (Pain Scale 1-3) Acetaminophen/Butalbital/Caffeine (Butalb/Acetamin/Caff 50/325/40 Tablet) 1 tab PO DAILY PRN PRN Reason: Headache Last Admin: 03/05/23 21:37 Dose: 1 tab Documented By: BRINA Hydrocodone Bitart/Acetaminophen (Hydrocodone Bit/Acetam 5/325 Tablet) 1 tab PO DAILY PRN PRN Reason: Pain, Moderate(Pain Scale 4-6) Last Admin: 03/06/23 07:39 Dose: 1 tab Documented By: DAVID Albuterol/Ipratropium (Albuterol/Iprat 2.5/0.5mg 3 Ml Ampul.Neb) 3 ml INHALE RQ4H WHILE AWAKE [facility] Last Admin: 03/06/23 11:31 Dose: 3 ml Documented By: WILL Albuterol/Ipratropium (Albuterol/Iprat 2.5/0.5mg 3 Ml Ampul.Neb) 3 ml INHALE Q4H PRN PRN Reason: Wheezing Atorvastatin Calcium (Atorvastatin Calcium 80 Mg Tablet) 80 mg PO BEDTIME [facility] Baclofen (Baclofen 10 Mg Tablet) 10 mg PO TID [facility] Last Admin: 03/06/23 14:17 Dose: 10 mg Documented By: DAVID Benzonatate (Benzonatate 100 Mg Capsule) 200 mg PO TID PRN PRN Reason: Cough Last Admin: 03/06/23 07:36 Dose: 200 mg Documented By: DAVID Duloxetine HCl (Duloxetine Hcl 60 Mg Capsule.Dr) 60 mg PO BID [facility] Last Admin: 03/06/23 07:35 Dose: 60 mg Documented By: DAVID Enoxaparin Sodium (Enoxaparin Sodium 40 Mg/0.4 Ml Syringe) 40 mg SUBCUT Q24H [facility] Last Admin: 03/05/23 21:38 Dose: 40 mg Documented By: BRINA Gabapentin (Gabapentin 400 Mg Capsule) 1,200 mg PO TID [facility] Last Admin: 03/06/23 14:17 Dose: 1,200 mg Documented By: DAVID Guaifenesin (Guaifenesin La 600 Mg Tab.Er.12h) 600 mg PO BID [facility] Last Admin: 03/06/23 11:58 Dose: 600 mg Documented By: DAVID-KULDIP Azithromycin 500 mg/ Sodium (Chloride) 250 mls @ 125 mls/hr IV Q24H [facility] Last Infusion: 03/06/23 00:27 Dose: Infused Documented By: TWILA Lidocaine (Lidocaine 4 % Patch Adh..Patch) 1 patch TRANSDERMA DAILY [facility]; Protocol Last Admin: 03/06/23 12:58 Dose: 1 patch Documented By: DAVID Lorazepam (Lorazepam 1 Mg Tablet) 1 mg PO DAILY PRN PRN Reason: Anxiety Last Admin: 03/05/23 21:36 Dose: 1 mg Documented By: BRINA Melatonin (Melatonin 3 Mg Tablet) 6 mg PO BEDTIME PRN PRN Reason: Insomnia Last Admin: 03/05/23 21:34 Dose: 6 mg Documented By: BRINA Methylprednisolone Sodium Succinate (Methylprednisolone Sod Succ 40 Mg/Ml Vial) 40 mg IVPUSH Q8H [facility] Last Admin: 03/06/23 11:59 Dose: 40 mg Documented By: ELIZABETH Non-Formulary Medication (Hyoscyamine Sulfate) 0.125 - 0.25 mg PO Q4-6H PRN PRN Reason: Abdominal Discomfort Ondansetron HCl (Ondansetron Hcl 4 Mg/2 Ml Vial) 4 mg IVPUSH Q8H PRN PRN Reason: Nausea and Vomiting Oxcarbazepine (Oxcarbazepine 300 Mg Tablet) 600 mg PO BID [facility] Last Admin: 03/06/23 07:36 Dose: 600 mg Documented By: DAVID Prazosin HCl (Prazosin Hcl 1 Mg Capsule) 1 mg PO BEDTIME [facility]; Protocol Last Admin: 03/05/23 21:36 Dose: 1 mg Documented By: BRINA Sodium Chloride (0.9 % Sodium Chloride Flush 3 Ml Syringe) 3 ml IVFLUSH QSHIFT [facility] Last Admin: 03/06/23 11:59 Dose: 3 ml Documented By: ELIZABETH Labs 03/04/23 17:30 03/06/23 08:35 Labs: Laboratory Results - last 24 hr 03/06/23 08:35 Anion Gap 14 Estim Creat Clear Calc 84.8 Estimated GFR > 60 Random Glucose 102 Calcium 9.9 Assessment and Plan (1) Acute hypoxemic respiratory failure: Status: Acute Plan This is a 58-year-old female with pertinent history of mood disorder, mixed hyperlipidemia, peripheral neuropathy who presents to the emergency department for evaluation of dyspnea. Acute hypoxemic respiratory failure due to acute exacerbation of presumed COPD Covid, flu, RSV negative continue scheduled and p.r.nNa Sof[place], increase frequnc of steroids continue azithromycin , will add ceftriaxone will likely need outpatient follow up with pulmonology Continue supplemental oxygen and wean as tolerated, currently down to 1L Pulmonary nodules CT chest showing multiple pulm nodules pt reports having chest CT for cancer screening as outpatient and is aware of pulm nodules recommend outpatient follow up Mild Hyperkalemia resolved without intervention hyperlipidemia continue statin Mood Continue home meds temporal neuralgia/occipital neuraliga continue gabapentin DVT prophylaxis: Lovenox Full code attending - dr. stone Requires ongoing inpatient stay for systemic steroids, supplemental oxygen and close monitoring of respiratory status Time Spent With Patient Time: Total time managing care of this patient today ____ minutes. Quality Stroke Does the patient have a stroke diagnosis?: No VTE Prior VTE?: No VTE Risk Level:: Medical - moderate - high VTE Device Contraindication: Treatment Not Indicated VTE Drug Contraindication: N/A - Med Ordered
[2023-03-06] MEDS: cefTRIAXone sodium 1 GM in 0.9 % Sodium Chloride 50 ML IV (16:34)
[2023-03-06] MEDS: Melatonin 3 MG TABLET 6 MG PO (20:03)
[2023-03-06] MEDS: Azithromycin 500 MG in 0.9 % Sodium Chloride 250 ML 125 MG IV (20:04)
[2023-03-06] MEDS: Prazosin HCL 1 MG CAPSULE PO (20:04)
[2023-03-06] MEDS: LORazepam 1 MG TABLET PO (20:04)
[2023-03-06] MEDS: Enoxaparin Sodium 40 MG/0.4 ML SYRINGE SUBCUT (20:05)
[2023-03-07] VITALS (8 sets, daily range): BP systolic 124–164; BP diastolic 68–84; PULSE 77–94; RESP 18–20; TEMP 36.4–37.1; O2SAT 91–94
[2023-03-07] MEDS: methylPREDNISolone Sod Succ 40 MG/ML VIAL IVPUSH ×3 (03:15→17:28)
[2023-03-07] MEDS: OLANZapine 10 MG VIAL 5 MG IM (04:56)
[2023-03-07] MEDS: guaiFENesin LA 600 MG TAB.ER.12H PO ×2 (07:45→20:40)
[2023-03-07] MEDS: Gabapentin 400 MG CAPSULE 1200 MG PO ×3 (07:46→20:40)
[2023-03-07] MEDS: Baclofen 10 MG TABLET PO ×3 (07:46→20:40)
[2023-03-07] MEDS: OXcarbazepine 300 MG TABLET 600 MG PO ×2 (07:47→20:39)
[2023-03-07] MEDS: DULoxetine HCl 60 MG CAPSULE.DR PO ×2 (07:47→20:40)
[2023-03-07] MEDS: 0.9 % Sodium Chloride Flush 3 ML SYRINGE IVFLUSH ×2 (07:47→15:11)
[2023-03-07] MEDS: HYDROcodone Bit/Acetam 5/325 TABLET 1 TAB PO ×2 (07:48→20:39)
[2023-03-07] MEDS: Albuterol/Iprat 2.5/0.5MG 3 ML AMPUL.NEB INHALE ×4 (07:57→19:17)
--- NOTE | 2023-03-07 14:28 | HO.PM.IMPN ---
Subjective Subjective Date of Service: 03/07/23 Interval History: seen and examined this morning follow up for presumed copd exacerbation feeling a little better, less phlegm production still requiring o2 Constitutional Constitutional: Denies chills and Denies fever(s) Cardiovascular Cardiovascular: Denies chest pain, Denies palpitations and Reports dyspnea on exertion Respiratory Respiratory: Reports cough and Reports dyspnea on exertion Gastrointestinal Gastrointestinal: Denies abdominal pain Endocrine Endocrine: Denies palpitations Physical Exam Vital Signs: Vital Signs: Last Vital Signs Temp 97.7 F 03/07/23 07:42 Pulse 82 03/07/23 11:43 Resp 18 03/07/23 11:43 BP 162/82 H 03/07/23 07:42 Pulse Ox 94 03/07/23 07:42 O2 Del Method Nasal Cannula 03/07/23 07:42 O2 Flow Rate 1 03/07/23 07:42 Oxygen Flow Rate 4 03/04/23 15:57 BMI result Body Mass Index 31.0 Const: General: comfortable and no acute distress; No alert or awake Nutritional Appearance: overweight Orientation/consciousness: patient oriented x3 Resp: Other: b/l expiratory wheeze Effort & Inspection: normal respiratory effort, able to speak in complete sentences, no respiratory distress and no use of accessory muscles Cardio: Rate: regular rate GI: Inspection: No distended Palpation (GI): Soft to palpation Neuro: General: patient oriented x3, moves all extremities and CN's II-XI intact bilaterally Extrem: General: Yes no pedal edema Objective Data Active Medications Acetaminophen (Acetaminophen 325 Mg Tablet) 650 mg PO Q6H PRN PRN Reason: Pain, Mild (Pain Scale 1-3) Acetaminophen/Butalbital/Caffeine (Butalb/Acetamin/Caff 50/325/40 Tablet) 1 tab PO DAILY PRN PRN Reason: Headache Last Admin: 03/05/23 21:37 Dose: 1 tab Documented By: BRINA Hydrocodone Bitart/Acetaminophen (Hydrocodone Bit/Acetam 5/325 Tablet) 1 tab PO DAILY PRN PRN Reason: Pain, Moderate(Pain Scale 4-6) Last Admin: 03/07/23 07:48 Dose: 1 tab Documented By: DAVID Albuterol/Ipratropium (Albuterol/Iprat 2.5/0.5mg 3 Ml Ampul.Neb) 3 ml INHALE RQ4H WHILE AWAKE [facility] Last Admin: 03/07/23 11:43 Dose: 3 ml Documented By: WILL Albuterol/Ipratropium (Albuterol/Iprat 2.5/0.5mg 3 Ml Ampul.Neb) 3 ml INHALE Q4H PRN PRN Reason: Wheezing Atorvastatin Calcium (Atorvastatin Calcium 80 Mg Tablet) 80 mg PO BEDTIME [facility] Last Admin: 03/06/23 20:04 Dose: 80 mg Documented By: BRINA Baclofen (Baclofen 10 Mg Tablet) 10 mg PO TID [facility] Last Admin: 03/07/23 14:16 Dose: 10 mg Documented By: DAVID Benzonatate (Benzonatate 100 Mg Capsule) 200 mg PO TID PRN PRN Reason: Cough Last Admin: 03/06/23 07:36 Dose: 200 mg Documented By: DAVID Duloxetine HCl (Duloxetine Hcl 60 Mg Capsule.Dr) 60 mg PO BID [facility] Last Admin: 03/07/23 07:47 Dose: 60 mg Documented By: DAVID Enoxaparin Sodium (Enoxaparin Sodium 40 Mg/0.4 Ml Syringe) 40 mg SUBCUT Q24H [facility] Last Admin: 03/06/23 20:05 Dose: 40 mg Documented By: BRINA Gabapentin (Gabapentin 400 Mg Capsule) 1,200 mg PO TID [facility] Last Admin: 03/07/23 14:16 Dose: 1,200 mg Documented By: DAVID Guaifenesin (Guaifenesin [place] 600 Mg Tab.Er.12h) 600 mg PO BID [facility] Last Admin: 03/07/23 07:45 Dose: 600 mg Documented By: DAVID Azithromycin 500 mg/ Sodium (Chloride) 250 mls @ 125 mls/hr IV Q24H [facility] Last Infusion: 03/06/23 23:29 Dose: Infused Documented By: LANCE Ceftriaxone Sodium 1 gm/ (Sodium Chloride) 50 mls @ 100 mls/hr IV Q24H [facility] Last Infusion: 03/06/23 17:21 Dose: Infused Documented By: SHAKIRA Lidocaine (Lidocaine 4 % Patch Adh..Patch) 1 patch TRANSDERMA DAILY [facility]; Protocol Last Admin: 03/07/23 07:48 Dose: Not Given Documented By: DAVID Non-Admin Reason: Patient Refused Lorazepam (Lorazepam 1 Mg Tablet) 1 mg PO DAILY PRN PRN Reason: Anxiety Last Admin: 03/06/23 20:04 Dose: 1 mg Documented By: BRINA Melatonin (Melatonin 3 Mg Tablet) 6 mg PO BEDTIME PRN PRN Reason: Insomnia Last Admin: 03/06/23 20:03 Dose: 6 mg Documented By: BRINA Methylprednisolone Sodium Succinate (Methylprednisolone Sod Succ 40 Mg/Ml Vial) 40 mg IVPUSH Q8H [facility] Last Admin: 03/07/23 12:09 Dose: 40 mg Documented By: DAVID Non-Formulary Medication (Hyoscyamine Sulfate) 0.125 - 0.25 mg PO Q4-6H PRN PRN Reason: Abdominal Discomfort Ondansetron HCl (Ondansetron Hcl 4 Mg/2 Ml Vial) 4 mg IVPUSH Q8H PRN PRN Reason: Nausea and Vomiting Oxcarbazepine (Oxcarbazepine 300 Mg Tablet) 600 mg PO BID [facility] Last Admin: 03/07/23 07:47 Dose: 600 mg Documented By: DAVID Prazosin HCl (Prazosin Hcl 1 Mg Capsule) 1 mg PO BEDTIME [facility]; Protocol Last Admin: 03/06/23 20:04 Dose: 1 mg Documented By: BRINA Sodium Chloride (0.9 % Sodium Chloride Flush 3 Ml Syringe) 3 ml IVFLUSH QSHIFT [facility] Last Admin: 03/07/23 07:47 Dose: 3 ml Documented By: DAVID Labs 03/04/23 17:30 03/06/23 08:35 Assessment and Plan (1) Acute hypoxemic respiratory failure: Status: Acute Plan This is a 58-year-old female with pertinent history of mood disorder, mixed hyperlipidemia, peripheral neuropathy who presents to the emergency department for evaluation of dyspnea. Acute hypoxemic respiratory failure due to acute exacerbation of presumed COPD Covid, flu, RSV negative continue scheduled and p.r.n. [place], systemic steroids continue azithromycin , will add ceftriaxone for possible component of pneumonia Continue supplemental oxygen and wean as tolerated, currently down to 1L - if remains hypoxic may need home o2 eval will likely need outpatient follow up with pulmonology Pulmonary nodules CT chest showing multiple pulm nodules pt reports having chest CT for cancer screening as outpatient and is aware of pulm nodules recommend outpatient follow up Mild Hyperkalemia resolved without intervention hyperlipidemia continue statin Mood Continue home meds temporal neuralgia/occipital neuraliga continue gabapentin DVT prophylaxis: Lovenox Full code attending - dr. chamberlain Requires ongoing inpatient stay for systemic steroids, supplemental oxygen and close monitoring of respiratory status Time Spent With Patient Time: Total time managing care of this patient today ____ minutes. Quality Stroke Does the patient have a stroke diagnosis?: No VTE Prior VTE?: No VTE Risk Level:: Medical - moderate - high VTE Device Contraindication: Treatment Not Indicated VTE Drug Contraindication: N/A - Med Ordered
[2023-03-07] MEDS: cefTRIAXone sodium 1 GM in 0.9 % Sodium Chloride 50 ML IV (15:08)
[2023-03-07] MEDS: Atorvastatin Calcium 80 MG TABLET PO (20:40)
[2023-03-07] MEDS: Prazosin HCL 1 MG CAPSULE PO (20:40)
[2023-03-07] MEDS: Benzonatate 100 MG CAPSULE 200 MG PO (20:44)
[2023-03-07] MEDS: Enoxaparin Sodium 40 MG/0.4 ML SYRINGE SUBCUT (20:46)
[2023-03-07] MEDS: Azithromycin 500 MG in 0.9 % Sodium Chloride 250 ML 125 MG IV (20:47)
[2023-03-07] MEDS: Melatonin 3 MG TABLET 6 MG PO (21:47)
[2023-03-07] MEDS: LORazepam 1 MG TABLET PO (21:47)
[2023-03-08 03:40] VITALS: BP 145/48; PULSE 98; RESP 16; TEMP 36.4; O2SAT 95
[2023-03-08] MEDS: Butalb/Acetamin/Caff 50/325/40 TABLET 1 TAB PO (04:41)
[2023-03-08] MEDS: methylPREDNISolone Sod Succ 40 MG/ML VIAL IVPUSH (06:16)
[2023-03-08] MEDS: 0.9 % Sodium Chloride Flush 3 ML SYRINGE IVFLUSH (06:16)
[2023-03-08 07:55] VITALS: BP 154/80; PULSE 78; RESP 16; TEMP 36.6; O2SAT 94
[2023-03-08] MEDS: Albuterol/Iprat 2.5/0.5MG 3 ML AMPUL.NEB INHALE ×2 (08:00→12:04)
[2023-03-08 08:02] VITALS: PULSE 78; RESP 18; O2SAT 93
[2023-03-08] MEDS: Baclofen 10 MG TABLET PO (08:34)
[2023-03-08] MEDS: DULoxetine HCl 60 MG CAPSULE.DR PO (08:34)
[2023-03-08] MEDS: OXcarbazepine 300 MG TABLET 600 MG PO (08:34)
[2023-03-08] MEDS: guaiFENesin LA 600 MG TAB.ER.12H PO (08:34)
[2023-03-08] MEDS: Gabapentin 400 MG CAPSULE 1200 MG PO (08:35)
[2023-03-08] MEDS: Benzonatate 100 MG CAPSULE 200 MG PO (08:42)
[2023-03-08 10:24] VITALS: PULSE 104; PULSE 105; PULSE 106; O2SAT 87; O2SAT 90; O2SAT 91
--- NOTE | 2023-03-08 11:51 | PM.DS ---
DS: Providers Provider Date of Service: 03/08/23 Date of admission: 03/04/23 20:31 Primary care physician: Jennifer Duke NP DS: Diagnosis Discharge Diagnosis (1) Acute hypoxemic respiratory failure: Status: Acute DS: Summary Hospital Course Hospital Course: And physical as per admitting provider. This is a 58-year-old female with pertinent history of mood disorder, mixed hyperlipidemia, peripheral neuropathy, tobacco use disorder who presents to the emergency department for evaluation of dyspnea. Patient states that about 4 days prior to presentation she has been having runny nose and watering of eyes. Soon she began to develop a cough with sputum production. Subsequently patient was having dyspnea, worse with ambulation and associated wheezing. Patient states her O2 sat at home was in the 70s. Is a former smoker and has smoked for 40 years. No official diagnosis of COPD or asthma. Does admit chills. But no fever. She denies chest discomfort, palpitations, abdominal pain, changes in urinary or bowel habits. In the emergency department, patient requiring supplemental oxygen and continued to have wheezing despite multiple DuoNeb treatments 58-year-old woman admitted with acute hypoxemic respiratory failure secondary to COPD exacerbation. Patient has no history of COPD but is a chronic smoker. COVID, flu and RSV both negative. She was treated with scheduled Solu-Medrol and DuoNebs. HSM ice and a ceftriaxone added for a component of pneumonia. Patient was seen by respiratory therapy and home O2 evaluation yielded 1 L of oxygen with ambulation. On chest CT she was also noted to have pulmonary nodules however patient reports awareness of this from previous CT scan. She should follow up outpatient. She should also follow-up with a broadcast maintenance engineer as outpatient as well. Hyperlipidemia. Continue statin Mental health continue home medications Temporal Neurology. Continue gabapentin Time Spent with Patient Time attestation: Total time managing care of this patient today ____ minutes. Discharge coordination time: Greater than 30 minutes Quality: Safe Use of Opioids Does Pt have an Active Cancer Diagnosis on the Problem List?: No Quality: Stroke Does the patient have a stroke diagnosis?: No Physical Exam Vital Signs: Vital Signs: Last Vital Signs Temp 97.8 F 03/08/23 07:55 Pulse 78 03/08/23 08:02 Resp 18 03/08/23 08:02 BP 154/80 H 03/08/23 07:55 Pulse Ox 94 03/08/23 07:55 O2 Del Method Room Air 03/08/23 07:55 O2 Flow Rate 1 03/07/23 07:42 Oxygen Flow Rate 4 03/04/23 15:57 BMI result Body Mass Index 31.0 Appearing in no acute distress head is normocephalic atraumatic eyes pupils are PERRLA sclera is anicteric mouth throat mucous membranes are intact and moist neck is supple no lymphadenopathy, no JVD noted lung sounds are clear to auscultation heart regular rate rhythm, clear S1, S2 positive bowel sounds, abdomen is soft, nontender neuro patient is alert x3, no focal deficits Discharge Plan Discharge Anticipated Discharge Date/Time: 03/08/23 11:48 Patient Disposition: Home, Self-Care Discharge Diagnosis: Acute hypoxemic respiratory failure COPD exacerbation Referrals: Jennifer Duke NP [Primary Care Provider] - 1 Week Neel Franco MD [Physician] - 1 Week Discharge Medications: New prednisone 10 mg tablet See Taper PO DIRECTED Qty: 30 0RF Taper: Prednisone 40 mg daily for 3 Days and 0 Hour 30 mg daily for 3 Days and 0 Hour 20 mg daily for 3 Days and 0 Hour 10 mg daily for 3 Days and 0 Hour Rx Instructions: see taper instructions cefuroxime axetil 500 mg tablet 500 mg PO BID Qty: 4 0RF azithromycin 500 mg tablet 500 mg PO DAILY 2 Days Qty: 2 0RF Rx Instructions: start on day 2 of therapy Continued atorvastatin 80 mg tablet 80 mg PO DAILY hydrocodone-acetaminophen 5-325 mg tablet 1 tab PO DAILY PRN (Reason: Pain) prazosin 1 mg capsule 1 mg PO BEDTIME zlzmzecnhe-qicldumrpzqpo-nwnp 50-325-40 mg tablet 1 tab PO DAILY PRN (Reason: Headache) baclofen 10 mg tablet 10 mg PO TID hyoscyamine sulfate 0.125 mg tablet 0.125 - 0.25 mg PO Q4-6H PRN (Reason: Abdominal Discomfort) gabapentin 300 mg capsule 1,200 mg PO TID oxcarbazepine 600 mg tablet 600 mg PO BID lorazepam 1 mg tablet 1 mg PO DAILY PRN (Reason: Anxiety) duloxetine 60 mg capsule,delayed release(DR/EC) 60 mg PO BID Discharge Orders: Discharge Order (Routine); Ordered 03/08/23 Ordered By: Giulia Henriquez Diet: Advance to usual diet Activity on Discharge: As tolerated Stand Alone Forms: Patient Portal Discharge page Care Plan Goals: Complete resolution of symptoms Health Concerns: Acute hypoxemic respiratory failure COPD exacerbation Plan of Treatment: Follow-up with primary care provider as needed You will be sent home with oxygen, 1 L with activity Assessment: See discharge summary
[2023-03-08 12:04] VITALS: PULSE 98; RESP 16; O2SAT 94
--- NOTE | 2023-03-08 12:14 | MHC.CM.PN ---
DP: PT HAS BEEN MEDICALLY CLEARED FOR DC HOME, NO SERVICES. [facility] WILL TRANSPORT HOME.
== END 2023-03-08 12:46 | disposition home or self-care (01) | DRG 140 ==
LOC: HO.ED 16:55 → HO.EDOVER 21:12 → HO.S3 22:35
PROVIDERS: Nurse Practitioner Family; Physician Assistant Medical; Admitting Provider Student in an Organized Health Care Education/Training Program; Emergency Provider Emergency Medicine; PCP Nurse Practitioner Family; Visit Provider Nurse Practitioner Acute Care
DX: J44.1 Chronic obstructive pulmonary disease with (acute) exacerbation (principal); J96.01 Acute respiratory failure with hypoxia; E87.5 Hyperkalemia; G62.9 Polyneuropathy, unspecified; E78.2 Mixed hyperlipidemia; F39 Unspecified mood [affective] disorder; M54.81 Occipital neuralgia; R91.8 Other nonspecific abnormal finding of lung field; F17.210 Nicotine dependence, cigarettes, uncomplicated; Z71.6 Tobacco abuse counseling; Z20.822 Contact with and (suspected) exposure to COVID-19; Z91.040 Latex allergy status; Z91.041 Radiographic dye allergy status; Z79.899 Other long term (current) drug therapy
CPT/HCPCS: 36415; 71046; 71250; 80048; 80053; 83690; 83735; 83880; 84484; 85025; 85379; 85610; 87502; 87635; 93005; 94640; 99285; J0456; J0696; J1650; J2920; J2930

== ENCOUNTER → 2023-03-04 20:31 | Outpatient (BNV) | payer BC, SELFPAY | PROVIDERS: Admitting Provider Student in an Organized Health Care Education/Training Program; Emergency Provider Emergency Medicine; PCP Nurse Practitioner Family; Visit Provider Student in an Organized Health Care Education/Training Program | DX: J96.01 Acute respiratory failure with hypoxia (principal) | CPT/HCPCS: 99222; 99232; 99239 ==

== ENCOUNTER 2023-04-16 15:03 | Outpatient (AMB) | payer BC, SELFPAY ==
--- NOTE | 2023-04-16 15:09 | MHC.OFFVIS ---
Intake Vital Signs 04/16/23 15:17 Height 5 ft 1 in Weight 167 lb BMI 31.6 BP 128/60 Blood Pressure Location Lt brachial Position Sitting Pulse 77 Pulse Source Pulse Oximeter Pulse Oximetry (%) 95 Oxygen Delivery Method Room Air Comment 1 Liter Oxygen([facility]) Intake Visit Reasons: copd Process Eng Required: No Allergies Iodinated Contrast Media [IV CONTRAST] Allergy (Intermediate, Unverified 04/16/23 15:09) HIVES acetaminophen [From VICODIN] Allergy (Unknown, Unverified 04/16/23 15:09) VOMITING hydrocodone [From VICODIN] Allergy (Unknown, Unverified 04/16/23 15:09) VOMITING latex [LATEX] Allergy (Unknown, Unverified 04/16/23 15:09) RASH oxycodone [From PERCOCET] Allergy (Unknown, Unverified 04/16/23 15:09) VOMITING procaine [From Novocain] Allergy (Unknown, Unverified 04/16/23 15:09) HIVES morphine [MORPHINE] Adverse Reaction (Unknown, Unverified 04/16/23 15:09) VOMITING HPI HPI Comments History of Present Illness Details the patient is here for pulmonary evaluation. The patient is a 14 year woman with a known history of tobacco dependency and COPD. Apparently back in February she developed worsening respiratory symptoms and was admitted to the hospital with COPD exacerbation. While she was there the patient did have a CT scan of the chest which was personally reviewed by me. It appears patient does have underlying pulmonary nodules subcentimeter in size, as well as, emphysema evidence of bronchitis. The patient does use oxygen activity. She also benefits from using oxygen while sleeping. The patient also needs to quit smoking. She understands the has is having oxygen and smoking. [facility] Medical History (Updated 04/18/23 @ 23:11 by Denys Henriquez MD) Pulmonary nodules COPD (chronic obstructive pulmonary disease) Mixed hyperlipidemia Peripheral neuropathy Tobacco use disorder Mood disorder Surgical History (Updated 04/16/23 @ 13:33 by Nuha Palacio PA-C) History of esophagogastroduodenoscopy (EGD) History of colonoscopy History of lumbar discectomy History of tubal ligation History of excision of mass History of shoulder surgery Social History Household Members: Spouse Housing: House Do you presently have visiting nurse or other home services: No Alcohol intake: current Alcohol intake frequency: holidays/special occasions only Patient Tobacco Use Status: Current everyday Tobacco user Tobacco use type: Cigarette Cigarette Packs Per Day: 1 Cigarettes Per Day: 20.0 Substance Use Type: Marijuana Review of Systems Const Denies fever(s) Eyes Denies change in vision ENT Reports nasal congestion Card Denies chest pain and Reports dyspnea on exertion Resp Reports dyspnea on exertion and Reports wheezing GI Reports no additional complaints Musc Reports no additional complaints Skin/Breast Denies rash Luis/Lymph Denies lymphadenopathy Aller/Immun Reports no additional complaints and Reports wheezing Physical Exam Vital Signs: Last Vital Signs Pulse 77 04/16/23 15:17 BP 128/60 04/16/23 15:17 Pulse Ox 95 04/16/23 15:17 Oxygen Delivery Method Room Air 04/16/23 15:17 BMI result Body Mass Index 31.6 Const General: comfortable HEENT Head: Yes normocephalic Neck Neck: Yes supple Chest Chest palpation & inspection: normal inspection of the chest Resp Effort & Inspection: normal respiratory effort and prolonged expiratory phase Auscultation: wheezes and diminished lung sounds Cardio Heart sounds: S1 normal heart sound present and S2 normal heart sound present GI Palpation (GI): Soft to palpation Skin General skin exam: no rashes or lesions noted Extrem General: Yes no clubbing, cyanosis or edema Results Reviewed Results Reviewed: [place] [address] CT Scan Report Signed Patient: Zulma Alves MR#: [id number] : 1965 Acct:[id number] Age/Sex: 58 / F ADM Date: 03/04/23 Loc: [facility] Attending Dr: Jeff Wilkes MD Ordering Physician: Sue Devries CNP Date of Service: 03/04/23 Procedure(s): CT chest wo IV con Accession Number(s): [id number] cc: Sue Devries CNP; GINA NAZARIO NP~ EXAMINATION: CT CHEST WITHOUT CONTRAST CLINICAL INFORMATION: Shortness of breath, hypoxia. COMPARISON: No similar priors. TECHNIQUE: Multidetector volumetric CT imaging of the chest was done. Axial MIP volume rendering provided. Sagittal and coronal reformatted images were obtained. This CT examination was performed using dose optimization techniques as appropriate, variously including the following: *Automated exposure control *Adjustment of mA and/or kV according to patient size (this includes techniques or standardized protocols for targeted exams where dose is matched to indication/reason for exam; i.e. extremities or head) *Use of iterative reconstruction technique DLP: 322 mGy-cm FINDINGS: LUNGS: Moderate to severe diffuse bronchial wall thickening with scattered foci of intrabronchial mucous secretions. Scattered mosaic attenuation of lung parenchyma. No dense consolidation. Central airways are patent. Multiple solid bilateral pulmonary nodules largest in the right upper lobe measuring 5 mm (image 129 series 4). MEDIASTINUM: Normal heart size. No pericardial effusion. No mediastinal lymphadenopathy. Normal appearance of the thyroid gland. Evaluation of the hilar structures is limited in the absence of IV contrast. CORONARY ARTERY CALCIFICATION: Multivessel coronary artery calcifications. PLEURA: No pleural effusion or pneumothorax. AXILLA: No axillary lymphadenopathy. UPPER ABDOMEN: Limited noncontrast examination without significant abnormality. OSSEOUS STRUCTURES: No acute or aggressive appearing osseous findings. CT/CT chest wo IV con IMPRESSION: 1. Moderate to severe diffuse bronchial wall thickening with scattered foci of intrabronchial mucous secretions and mosaic attenuation of the lung parenchyma. These findings are suggestive of an infectious or inflammatory process of the small airways with some degree of air trapping. 2. Multiple solid pulmonary nodules, largest measuring 5 mm. Assuming patient has no history of malignancy, recommend follow-up per Fleischner Society recommendations. According to the UPDATED 2017 Fleischner Society recommendations, the advised followup imaging for solid nodules < 6 mm is: LOW RISK PATIENT: No routine follow up. HIGH RISK PATIENT: Optional CT at 12 months. Fleischner guidelines were followed. 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: Assessment & Plan Assessment & Plan (1) Tobacco use disorder: Code(s): F17.200 - Nicotine dependence, unspecified, uncomplicated (2) COPD (chronic obstructive pulmonary disease): Code(s): J44.9 - Chronic obstructive pulmonary disease, unspecified Qualifiers: COPD type: chronic bronchitis Chronic bronchitis type: simple Qualified Code(s): J41.0 - Simple chronic bronchitis (3) Pulmonary nodules: Code(s): R91.8 - Other nonspecific abnormal finding of lung field Plan start Stiolto use spacer with albuterol to minimize mouth irritation continue oxygen supplementation with activity and sleep Overnight oximetry smoking cessation repeat CT chest 02/2024 F/U 2 months Orders: Orders Overnight Pulse Oximetry 04/16/23 Medications: New tiotropium-olodaterol 2.5-2.5 mcg/actuation (Stiolto Respimat) 2 puffs inhalation DAILY 30 days 4 grams 11RF Coding Level of Care Code New Pt Level 4 (68353) Diagnoses Tobacco use disorder F17.200 Simple chronic bronchitis J41.0 COPD type: chronic bronchitis Chronic bronchitis type: simple Pulmonary nodules R91.8 Time Spent (min) 36
[2023-04-16 15:17] VITALS: BP 128/60; PULSE 77; O2SAT 95; BMI 31.6
== END 2023-04-16 15:45 | disposition home or self-care (01) ==
PROVIDERS: PCP Nurse Practitioner Family; Referring Provider Nurse Practitioner Family; Visit Provider Hospitalist
DX: F17.200 Nicotine dependence, unspecified, uncomplicated (principal); J41.0 Simple chronic bronchitis; R91.8 Other nonspecific abnormal finding of lung field
CPT/HCPCS: 99204

== ENCOUNTER → 2023-04-16 15:03 | Outpatient (BNVA) | payer BC, SELFPAY | PROVIDERS: PCP Nurse Practitioner Family; Referring Provider Nurse Practitioner Family; Visit Provider Hospitalist ==

== ENCOUNTER 2023-07-19 10:53 | Outpatient (AMB) | payer BC, SELFPAY ==
--- NOTE | 2023-07-19 10:59 | A.OFFVIS_ITS ---
Intake Vital Signs 07/19/23 11:04 Height 5 ft 1 in Weight 167 lb BMI 31.6 Pulse 88 Pulse Source Pulse Oximeter Pulse Oximetry (%) 91 L Oxygen Delivery Method Room Air Intake Visit Reasons: COPD Elevator Dispatcher Required: No Allergies Iodinated Contrast Media [IV CONTRAST] Allergy (Intermediate, Unverified 07/19/23 11:05) HIVES acetaminophen [From VICODIN] Allergy (Unknown, Unverified 07/19/23 11:05) VOMITING hydrocodone [From VICODIN] Allergy (Unknown, Unverified 07/19/23 11:05) VOMITING latex [LATEX] Allergy (Unknown, Unverified 07/19/23 11:05) RASH oxycodone [From PERCOCET] Allergy (Unknown, Unverified 07/19/23 11:05) VOMITING procaine [From Novocain] Allergy (Unknown, Unverified 07/19/23 11:05) HIVES morphine [MORPHINE] Adverse Reaction (Unknown, Unverified 07/19/23 11:05) VOMITING HPI HPI Comments History of Present Illness Details The patient is a 58 year woman with a known history of tobacco dependency and COPD. Apparently back in February she developed worsening respiratory symptoms and was admitted to the hospital with COPD exacerbation. While she was there the patient did have a CT scan of the chest which was personally reviewed by me. It appears patient does have underlying pulmonary nodules subcentimeter in size, as well as, emphysema evidence of bronchitis. The patient does use oxygen activity. She also benefits from using oxygen while sleeping. The patient also needs to quit smoking. She understands the has is having oxygen and smoking. 07/19/2023 the patient is here for a pulmo nary follow-up visit. Overall she is doing about the same. She has not using the oxygen regularly. She did have an overnight oximetry done several months ago on 2 L nasal cannula demonstrating that she actually does require the 2 L and actually would benefit from a little more oxygen. However, she has not using it at also I did advise her just to go back on using the oxygen. She has significant trigeminal neuralgia and neuropathy in general making it difficult for her to have anything over head and ear area. Therefore, she is going to have to figure out a way that would work for her. She does not tolerate a oxygen mask either because of the same problem. She is going to look to see if she can find a solution otherwise will can call [facility] to see if they can help her. The patient unfortunately she continues to smoke cigarettes. She does want to quit she wants to try the Nicotrol nasal spray. Will send to the pharmacy for her to try. The patient also did have pulmonary function studies that [facility] last year. She does have significant COPD. We do not have those PFTs available at this time but we will request them. She will be a great candidate for pulmonary rehabilitation at this time. The patient also had a CT scan of the chest back in February 2023 demonstrating multiple nodules largest 1 measuring 5 mm in siz e. She is high risk for malignancy due to her smoking history therefore she will have a repeat CT scan the fall 2023. [facility] Medical History (Updated 04/18/23 @ 23:11 by Denys Henriquez MD) Pulmonary nodules COPD (chronic obstructive pulmonary disease) Mixed hyperlipidemia Peripheral neuropathy Tobacco use disorder Mood disorder Surgical History (Updated 04/16/23 @ 13:33 by Nuha Palacio PA-C) History of esophagogastroduodenoscopy (EGD) History of colonoscopy History of lumbar discectomy History of tubal ligation History of excision of mass History of shoulder surgery Social History Household Members: Spouse Housing: House Do you presently have visiting nurse or other home services: No Alcohol intake: current Alcohol intake frequency: holidays/special occasions only Patient Tobacco Use Status: Current everyday Tobacco user Tobacco use type: Cigarette Cigarette Packs Per Day: 1 Cigarettes Per Day: 20.0 Substance Use Type: Marijuana Review of Systems Const Denies fever(s) Eyes Denies change in vision ENT Reports nasal congestion Card Denies chest pain and Reports dyspnea on exertion Resp Reports dyspnea on exertion and Reports wheezing GI Reports no additional complaints Musc Reports no additional complaints Skin/Breast Denies rash Luis/Lymph Denies lymphadenopathy Aller/Immun Reports no additional complaints and Reports wheezing Physical Exam Vital Signs: Last Vital Signs Pulse 88 07/19/23 11:04 Pulse Ox 91 L 07/19/23 11:04 Oxygen Delivery Method Room Air 07/19/23 11:04 BMI result Body Mass Index 31.6 Const General: comfortable HEENT Head: Yes normocephalic Neck Neck: Yes supple Chest Chest palpation & inspection: normal inspection of the chest Resp Effort & Inspection: normal respiratory effort and prolonged expiratory phase Auscultation: no wheezes and diminished lung sounds Cardio Heart sounds: S1 normal heart sound present and S2 normal heart sound present GI Palpation (GI): Soft to palpation Skin General skin exam: no rashes or lesions noted Extrem General: Yes no clubbing, cyanosis or edema Assessment & Plan Assessment & Plan (1) Tobacco use disorder: Code(s): F17.200 - Nicotine dependence, unspecified, uncomplicated (2) COPD (chronic obstructive pulmonary disease): Code(s): J44.9 - Chronic obstructive pulmonary disease, unspecified Qualifiers: COPD type: chronic bronchitis Chronic bronchitis type: simple Qualified Code(s): J41.0 - Simple chronic bronchitis (3) Pulmonary nodules: Code(s): R91.8 - Other nonspecific abnormal finding of lung field Plan continue Stiolto use spacer with albuterol to minimize mouth irritation continue oxygen supplementation with activity and sleep smoking cessation: trial nicotrol nasal spray repeat CT chest 02/2024 start pulmonary rehab at [facility] [place] (awaiting PFTs from [facility] Br[facility]) F/U 4-6 months Orders: Orders Pulmonary Rehab Today J44.9 - Chronic obstructive pulmonary disease, unspecified Medications: New nicotine (Nicotrol NS) administer into each nostril 1 spray intranasal DAILY 30 days 40 mL 4RF Coding Level of Care Code Est Pt Level 4 (21953) Diagnoses Tobacco use disorder F17.200 Simple chronic bronchitis J41.0 COPD type: chronic bronchitis Chronic bronchitis type: simple Pulmonary nodules R91.8 Time Spent (min) 18
[2023-07-19 11:04] VITALS: PULSE 88; O2SAT 91; BMI 31.6
== END 2023-07-19 11:31 | disposition home or self-care (01) ==
PROVIDERS: PCP Nurse Practitioner Family; Visit Provider Hospitalist
DX: F17.200 Nicotine dependence, unspecified, uncomplicated (principal); J41.0 Simple chronic bronchitis; R91.8 Other nonspecific abnormal finding of lung field
CPT/HCPCS: 99214

== ENCOUNTER → 2023-07-19 10:53 | Outpatient (BNVA) | payer BC, SELFPAY | PROVIDERS: PCP Nurse Practitioner Family; Visit Provider Hospitalist ==

== ENCOUNTER 2023-11-15 12:20 | Inpatient (IN) | payer BC, MEDICARE, SELFPAY ==
[2023-11-15] VITALS (11 sets, daily range): BP systolic 140–196; BP diastolic 74–105; PULSE 73–99; RESP 18–30; TEMP 35.7–36.7; O2SAT 89–93; BMI 31.2
--- NOTE | ~2023-11-15 | FL_ITS ---
EXAMINATION: Modified Barium Swallow CLINICAL INFORMATION: Dysphagia COMPARISON: None TECHNIQUE: Modified barium swallow was performed under lateral fluoroscopy with patient in standing position. Barium mixed with solids and liquids of different consistencies was administered by the speech pathologist. Examination was recorded in the fluoroscopy suite. FINDINGS: No penetration or aspiration was seen during this examination. FLUOROSCOPY TIME: 4 minutes Number of Spot Images: N/A DOSE AREA PRODUCT: 2558 uGy-m2 (microgray-meter squared) FL/FL barium swallow modified IMPRESSION: No penetration or aspiration was seen during this examination. Refer to the speech therapy report for further clarification This procedure was performed by Christopher Weathers PA-C, and supervised by Dr. Triplett
--- NOTE | ~2023-11-15 | XR_ITS ---
EXAMINATION: XR CHEST CLINICAL INFORMATION: Dyspnea COMPARISON: 11/15/2023 TECHNIQUE: Frontal view of the chest was obtained. FINDINGS: Lung volumes are symmetric. No focal consolidation is seen. No evidence of pneumothorax, pleural effusion, or pulmonary edema. The cardiomediastinal contour is unremarkable. No acute osseous findings are seen. XR/XR chest 1V IMPRESSION: No acute cardiopulmonary findings.
--- NOTE | ~2023-11-15 | XR_ITS ---
EXAMINATION: XR CHEST CLINICAL INFORMATION: Dyspnea. COMPARISON: 03/04/2023 TECHNIQUE: 2 views of the chest were obtained. FINDINGS: The lungs are well expanded. No focal consolidation. No pleural effusion. Cardiac silhouette is unchanged. XR/XR chest 2V IMPRESSION: No acute abnormality.
--- NOTE | 2023-11-15 13:21 | ED_ITS ---
HPI - General Adult General Chief complaint: Dyspnea Stated complaint: DIFF BREATHING WORSE X 4 DAYS,2LPM HOME O2 Time Seen by Provider: 11/15/23 13:20 History of Present Illness HPI narrative: This is a 58-year-old woman with a past medical history of mood disorder, mixed hyperlipidemia, peripheral neuropathy, tobacco use disorder, COPD (on 1 L per minute home supplemental oxygen) who presents for evaluation of dyspnea. Patient reports that she has here for a ?COPD exacerbation?. She reports no change to a chronic cough. She reports cough with clear sputum. She reports no hemoptysis. She states no fevers or chills. She states no chest pain. She reports using 4 puffs of albuterol within a 24 hour.. She states no chest pain. Related Data Home Medications ?Medication ?Instructions ?Recorded ?Confirmed atorvastatin 80 mg tablet 80 mg PO DAILY 03/04/23 03/04/23 baclofen 10 mg tablet 10 mg PO TID 03/04/23 03/04/23 medvltcrxe-vqievpklcinuk-zjdkjedl 1 tab PO DAILY PRN Headache 03/04/23 03/04/23 50 mg-325 mg-40 mg tablet duloxetine 60 mg capsule,delayed 60 mg PO BID 03/04/23 03/04/23 release gabapentin 300 mg capsule 1,200 mg PO TID 03/04/23 03/04/23 hydrocodone 5 mg-acetaminophen 325 1 tab PO DAILY PRN Pain 03/04/23 03/04/23 mg tablet hyoscyamine sulfate 0.125 mg tablet 0.125 - 0.25 mg PO Q4-6H PRN 03/04/23 03/04/23 Abdominal Discomfort lorazepam 1 mg tablet 1 mg PO DAILY PRN Anxiety 03/04/23 03/04/23 oxcarbazepine 600 mg tablet 600 mg PO BID 03/04/23 03/04/23 Oxygen Home Use 04/16/23 cholecalciferol (vitamin D3) 25 25 mcg PO DAILY 04/16/23 mcg (1,000 unit) capsule prazosin 2 mg capsule 2 mg PO BEDTIME 04/16/23 Previous Rx's ?Medication ?Instructions ?Recorded albuterol sulfate 90 mcg/actuation 1 inh inhalation QID PRN shortness 03/08/23 aerosol inhaler of breath or wheezing #6.7 grams tiotropium 2.5 mcg-olodaterol 2.5 2 puff inhalation DAILY 30 days #4 04/16/23 mcg/actuation mist for inhalation grams (Stiolto Respimat) nicotine 10 mg/mL nasal spray 1 spray intranasal DAILY 30 days 07/19/23 (Nicotrol NS) #40 mL Allergies Allergy/AdvReac Type Severity Reaction Status Date / Time Iodinated Contrast Media Allergy Intermediate HIVES Verified 11/15/23 12:45 [IV CONTRAST] acetaminophen [From VICODIN] Allergy Unknown VOMITING Verified 11/15/23 12:45 hydrocodone [From VICODIN] Allergy Unknown VOMITING Verified 11/15/23 12:45 latex [LATEX] Allergy Unknown RASH Verified 11/15/23 12:45 oxycodone [From PERCOCET] Allergy Unknown VOMITING Verified 11/15/23 12:45 procaine [From Novocain] Allergy Unknown HIVES Verified 11/15/23 12:45 morphine [MORPHINE] AdvReac Unknown VOMITING Verified 11/15/23 12:45 Review of Systems 2 Review of Systems: ROS as per HPI [facility] Past Medical History Medical History (Updated 11/15/23 @ 15:41 by Nba Nuno MD) Pulmonary nodules COPD (chronic obstructive pulmonary disease) Mixed hyperlipidemia Peripheral neuropathy Tobacco use disorder Mood disorder Surgical History (Updated 04/16/23 @ 13:33 by Nuha Palacio PA-C) History of esophagogastroduodenoscopy (EGD) History of colonoscopy History of lumbar discectomy History of tubal ligation History of excision of mass History of shoulder surgery Social History Social History Household Members: Spouse Housing: House Do you presently have visiting nurse or other home services: No Alcohol intake: current Alcohol intake frequency: holidays/special occasions only Alcohol type: wine Patient Tobacco Use Status: Current everyday Tobacco user Tobacco use type: Cigarette Cigarette Packs Per Day: 1 Cigarettes Per Day: 20.0 Smoked in Last 30 Days: No Use of substances other than those prescribed or required for medical reasons: Yes Substance Use Type: Marijuana Advance Directives: Yes Advance Directives on File: Yes Advance Directives Date on File: 03/09/23 Do you have a plan to hurt others: No Plan Patient : No Physical Exam ED Vital Signs: Vital Signs - 24 hr 11/15/23 12:40 11/15/23 13:57 11/15/23 14:24 Temperature 96.2 F L Pulse Rate 83 82 82 Respiratory Rate 18 21 H 18 Blood Pressure 179/83 H Pulse Oximetry 90 L 91 L Oxygen Delivery Method Nasal Cannula Nasal Cannula Oxygen Flow Rate 3 11/15/23 14:29 11/15/23 14:53 Temperature Pulse Rate 98 87 Respiratory Rate 24 H 27 H Blood Pressure 182/86 H Pulse Oximetry 92 Oxygen Delivery Method Nasal Cannula Oxygen Flow Rate 3 BMI result Body Mass Index 31.2 Gen: NAD, AOx3 HEENT: NCAT, EOMI, normal conjunctiva CV: RRR Pulm: Diffuse expiratory wheezes, no respiratory distress, no rhonchi or rales, no increased work of breathing GI: Soft, NTND, no rebound, guarding or rigidity Neuro: Grossly non focal Medications Administered Discontinued Medications Generic Name Dose Route Start Last Admin Trade Name Freq PRN Reason Stop Dose Admin Albuterol Sulfate 7.5 mg/ 10 mg 11/15/23 14:47 11/15/23 14:52 Albuterol Sulfate 2.5 mg INHALE 11/15/23 14:48 10 mg ONCE ONE Administration Baclofen 10 mg 11/15/23 15:12 11/15/23 15:26 Baclofen 10 Mg Tablet PO 11/15/23 15:13 10 mg ONCE ONE Administration Albuterol Sulfate 7.5 mg/ 0 mg 11/15/23 13:30 11/15/23 13:56 Albuterol/Ipratropium 3 ml INHALE 11/15/23 13:31 7.5 each ONCE ONE Administration Gabapentin 1,200 mg 11/15/23 15:12 11/15/23 15:25 Gabapentin 600 Mg Tablet PO 11/15/23 15:13 1,200 mg ONCE ONE Administration Methylprednisolone Sodium Succinate 125 mg 11/15/23 13:30 11/15/23 14:24 Methylprednisolone Sod Succ 125 Mg/2 Ml Vial IVPUSH 11/15/23 13:31 125 mg ONCE ONE Administration Medical Decision Making Medical Decision Making [facility] Narrative: Differential diagnosis includes, but is not limited to COPD exacerbation, bronchospasm, viral illness, pneumonia. However, I have lower suspicion for viral illness and/or pneumonia given history lacking for infectious symptoms. This is not sepsis. Patient is afebrile and hemodynamically stable on room air. Exam is notable for diffuse wheezing consistent with bronchospasm . I reviewed and interpreted labs, which are noncontributory. Patient does not demonstrate any acute hypercarbia respiratory acidosis suggest a need for noninvasive mechanical ventilation. Given increased oxygen requirement, her presentation is consistent with acute hypoxic respiratory failure. I reviewed and interpreted EKG, which is unremarkable for any acute findings. Diagnostic imaging studies are unremarkable for any acute findings. Patient is provided corticosteroids and bronchodilator therapy. She is provided her home medications of gabapentin and baclofen. She is admitted to hospitalist Dr. Harrison for further workup and management of COPD exacerbation with acute hypoxic respiratory failure. Differential Diagnosis Differential Diagnoses: The differential diagnosis associated with the presentation includes Lab Data MDM Lab Attestation statement: I reviewed the patient's lab results. 11/15/23 14:18 11/15/23 14:44 Labs: Lab Results 11/15/23 11/15/23 11/15/23 Range/Units 14:18 14:21 14:44 WBC 11.0 H (4.8-10.8) X10*3/uL RBC 5.14 (4.20-5.50) X10*6/uL Hgb 16.5 H (12.0-16.0) g/dl Hct 48.8 H (37.0-47.0) % MCV 94.9 (80.0-98.0) fL MCH 32.1 (27.0-33.0) pg MCHC 33.8 (31.0-35.0) g/dl RDW 13.2 (11.0-16.0) % Plt Count 353 (160-400) X10*3/uL MPV 9.2 L (9.4-12.3) fL Immature Gran % (Auto) 0.2 (0.0-0.4) % Neut % (Auto) 56.1 (45-73) % Lymph % (Auto) 26.9 (20-40) % [place] % (Auto) 10.0 (2-11) % Eos % (Auto) 6.1 H (0-4) % Baso % (Auto) 0.7 (0-2) % Lymph # (Auto) 3.0 (1.2-4.9) X10*3/uL [place] # (Auto) 1.1 (0.1-1.2) X10*3/uL Eos # (Auto) 0.7 H (0.0-0.4) X10*3/uL Baso # (Auto) 0.1 (0.0-0.2) X10*3/uL Abs Immat Gran (auto) 0.02 (0.00-0.03) X10*3/uL Absolute Neuts (auto) 6.2 (2.0-8.3) x10*3/uL Absolute Nucleated RBC 0.000 (0.0-0.012) X10*3/uL Nucleated RBC % (auto) 0.0 (0.0-0.2) /100WBC VBG pH 7.38 (7.32-7.43) VBG pCO2 42 mmHg VBG pO2 87 mmHg VBG HCO3 26 (22-26) mmol/L VBG O2 Saturation 98.0 % VBG Base Excess 0.8 mmol/L Sodium 146 H (135-145) mmol/L Potassium 4.1 (3.3-5.1) mmol/L Chloride 105 (96-108) mmol/L Carbon Dioxide 30 H (22-29) mmol/L Anion Gap 15 (12-20) BUN 7 L (9-16) mg/dL Creatinine 0.73 (0.5-1.4) mg/dL Estim Creat Clear Calc 75.8 Estimated GFR > 60 Random Glucose 129 H (60-115) mg/dL Calcium 10.3 H (8.4-10.2) mg/dL Independent Interpretation I performed an independent interpretation of an: EKG and Plain X-Ray Interpretation: EKG shows sinus for that study 7 beats per minute, DE 134, QRS 84, QTC 389, no STEMI (compared to prior EKG March 04, 2023 there are no diagnostic ischemic changes). Chest x-ray demonstrates no pneumothorax or focal infiltrate/consolidation. Radiology Impression Discussion of test interpretation with radiology: I have reviewed the radiologist's reading. Radiologist Impression: FINDINGS: The lungs are well expanded. No focal consolidation. No pleural effusion. Cardiac silhouette is unchanged. XR/XR chest 2V IMPRESSION: No acute abnormality. Dictated By: Duke Finney MD Signed By: <Electronically signed by Duke Finney MD in OV> 11/15/23 [id number] Discharge Plan Discharge Clinical Impression: COPD (chronic obstructive pulmonary disease), Acute and chronic respiratory failure with hypoxia Patient Disposition: Admitted As Inpatient Prescriptions: No Action atorvastatin 80 mg tablet 80 mg PO DAILY hydrocodone-acetaminophen 5-325 mg tablet 1 tab PO DAILY PRN (Reason: Pain) soxmbanxal-mcguclormnwsv-igub 50-325-40 mg tablet 1 tab PO DAILY PRN (Reason: Headache) baclofen 10 mg tablet 10 mg PO TID hyoscyamine sulfate 0.125 mg tablet 0.125 - 0.25 mg PO Q4-6H PRN (Reason: Abdominal Discomfort) gabapentin 300 mg capsule 1,200 mg PO TID oxcarbazepine 600 mg tablet 600 mg PO BID lorazepam 1 mg tablet 1 mg PO DAILY PRN (Reason: Anxiety) duloxetine 60 mg capsule,delayed release(DR/EC) 60 mg PO BID albuterol sulfate 90 mcg/actuation HFA aerosol inhaler 1 inh inhalation QID PRN (Reason: shortness of breath or wheezing) Qty: 6.7 0RF prazosin 2 mg capsule 2 mg PO BEDTIME (DME) Oxygen Home Use Kit See Rx Instructions .ROUTE Rx Instructions: As directed cholecalciferol (vitamin D3) 25 mcg (1,000 unit) capsule 25 mcg PO DAILY Stiolto Respimat 2.5-2.5 mcg/actuation mist 2 puff inhalation DAILY 30 Days Qty: 4 11RF Nicotrol NS 10 mg/mL spray,non-aerosol 1 spray intranasal DAILY 30 Days Qty: 40 4RF Rx Instructions: administer into each nostril Print Language: Mexican
--- NOTE | 2023-11-15 13:29 | ECG_ITS ---
Test Reason : DYSPNEA Blood Pressure : / mmHG Vent. Rate : 077 BPM Atrial Rate : 077 BPM P-R Int : 134 ms QRS Dur : 084 ms QT Int : 344 ms P-R-T Axes : 070 074 -32 degrees QTc Int : 389 ms Normal sinus rhythm ST & T wave abnormality, consider inferior ischemia Abnormal ECG When compared with ECG of 04-MAR-2023 16:42, No significant change was found Referred By: Nba Nuno Electronically Signed By:HARRIET ANDRES MD
[2023-11-15] MEDS: Albuterol Sulfate 7.5 MG, Albuterol/Iprat 2.5/0.5MG 3 ML 3 ML INHALE (13:56)
[2023-11-15] MEDS: methylPREDNISolone Sod Succ 125 MG/2 ML VIAL IVPUSH (14:24)
[2023-11-15 14:25] LABS: MANUAL DIFF FLAG NO
[2023-11-15 14:28] LABS: Basophils Absolute Auto 0.1 X10*3/uL (0.0-0.2); Basophils Percent Auto 0.7 % (0-2); Eosinophils Absolute Auto 0.7 X10*3/uL (0.0-0.4); Eosinophils Percent Auto 6.1 % (0-4); Hematocrit 48.8 % (37.0-47.0); Hemoglobin 16.5 g/dl (12.0-16.0); Imm Gran Abs Auto 0.02 X10*3/uL (0.00-0.03); Imm Gran Pct Auto 0.2 % (0.0-0.4); Lymphocytes Percent Auto 26.9 % (20-40); Mean Corpuscular HGB Conc 33.8 g/dl (31.0-35.0); Mean Corpuscular Hemoglobin 32.1 pg (27.0-33.0); Mean Corpuscular Volume 94.9 fL (80.0-98.0); Mean Platelet Volume 9.2 fL (9.4-12.3); Monocytes Absolute Auto 1.1 X10*3/uL (0.1-1.2); Neutrophils Absolute Auto 6.2 x10*3/uL (2.0-8.3); Neutrophils Percent Auto 56.1 % (45-73); Platelet Count 353 X10*3/uL (160-400); Red Blood Count 5.14 X10*6/uL (4.20-5.50); Red Cell Distribution Width 13.2 % (11.0-16.0); Venous Blood Gas Refer to POC result
[2023-11-15 14:29] LABS: VBG Base Excess 0.8 mmol/L; VBG HCO3 26 mmol/L (22-26); VBG pCO2 42 mmHg; VBG pH 7.38 (7.32-7.43); VBG pO2 87 mmHg
[2023-11-15] MEDS: Albuterol Sulfate 7.5 MG, Albuterol Sulfate (0.083%) 2.5 MG 10 MG INHALE (14:52)
[2023-11-15 15:07] LABS: Anion Gap 15 (12-20); Blood Urea Nitrogen 7 mg/dL (9-16); Calcium 10.3 mg/dL (8.4-10.2); Carbon Dioxide 30 mmol/L (22-29); Chloride 105 mmol/L (96-108); Creatinine Clr Calc Pharmacy 75.8; Estimated Glomerular Filt Rate > 60; Glucose Random 129 mg/dL (60-115); Potassium 4.1 mmol/L (3.3-5.1); Sodium 146 mmol/L (135-145)
[2023-11-15] MEDS: Gabapentin 600 MG TABLET 1200 MG PO (15:25)
[2023-11-15] MEDS: Baclofen 10 MG TABLET PO ×2 (15:26→22:40)
--- NOTE | 2023-11-15 15:48 | PHA.MEDREC ---
Pharmacy Consult ? Medication Reconciliation Pharmacy has completed the medication reconciliation. Patient confirmed meds from list and she said she took all night meds last night and she was able to take her morning meds this morning at home.
[2023-11-15] MEDS: Albuterol Sulfate 5 MG, Albuterol Sulfate (0.083%) 2.5 MG 7.5 MG INHALE (16:59)
[2023-11-15] MEDS: HYDROmorphone HCl 0.5 MG/0.5 ML SYRINGE IVPUSH (17:05)
--- NOTE | 2023-11-15 17:37 | PM.IMHP ---
History of Present Illness Date of Service: 11/15/23 <ORESTES Mckee - Last Filed: 11/15/23 17:55> Attending physician on admission: Maye Harrison <ORESTES Mckee - Last Filed: 11/15/23 17:55> Chief Complaint: sob <ORESTES Mckee - Last Filed: 11/15/23 17:55> 58-year-old female with history of hyperlipidemia, mood disorder, COPD with exercise hypoxemia and nocturnal hypoxemia, lacunar infarcts, PTSD, MVR, occipital neuralgia, tricuspid insufficiency, brain aneurysm, and right-sided sciatica presented to the ED earlier today accompanied by her for evaluation of shortness of breath both at rest but worse with exertion ongoing for 4 days. She has also had productive cough with clear mucus production. No sick contacts. No fevers, chills, sore throat, congestion, abdominal pain, nausea, vomiting, diarrhea, lightheadedness, palpitations, or chest pain. She has been using her albuterol inhaler with increased frequency and decreased effectiveness. She had been smoking cigarettes up until 5 days ago and does not wish for any NRT. Since arrival, has been hypertensive to 182/86 and tachypneic. She uses 1 L of supplemental O2 with exertion at baseline and 2 L at bedtime now requiring 3 L supplemental O2 via OxyMask maintain oximetry 90-92%. No fevers. She has a mild leukocytosis of 11.0. Renal function normal, electrolyte levels normal except for sodium of 146. VBG reassuring with pH 7.38, pCO2 42, bicarb 26. Chest x-ray negative for any acute abnormality. In the ED, has received 125 mg IV methylprednisolone, baclofen, gabapentin, multiple nebulizer treatments and DuoNeb but remains in respiratory distress with significant wheezing. She was given 0.5 mg of hydromorphone with good improvement in work of breathing. She will be admitted for further management of COPD exacerbation with acute hypoxemic respiratory failure. <ORESTES Mckee - Last Filed: 11/15/23 17:55> Review of Systems Review of Systems: Yes all other systems are reviewed and are negative <ORESTES Mckee - Last Filed: 11/15/23 17:55> [facility], [facility] Medical History: Medical History (Updated 06/03/24 @ 17:45 by ORESTES Mckee) Trigeminal neuralgia Pulmonary nodules COPD (chronic obstructive pulmonary disease) Mixed hyperlipidemia Peripheral neuropathy Tobacco use disorder Mood disorder <ORESTES Mckee - Last Filed: 11/15/23 17:55> Surgical History: Surgical History History of esophagogastroduodenoscopy (EGD) History of colonoscopy History of lumbar discectomy History of tubal ligation History of excision of mass History of shoulder surgery <ORESTES Mckee - Last Filed: 11/15/23 17:55> Social History: Social History Household Members: Spouse Housing: Condominium Do you presently have visiting nurse or other home services: No Alcohol intake: current Alcohol intake frequency: holidays/special occasions only Alcohol type: wine Patient Tobacco Use Status: Former Tobacco user Tobacco use type: Cigarette Cigarette Packs Per Day: 1 Cigarettes Per Day: 20.0 Smoked in Last 30 Days: Yes Patient Interested in Nicotine Replacement: No Use of substances other than those prescribed or required for medical reasons: Yes Substance Use Type: Marijuana Substance Use Frequency: Daily Last Used Substance: Days (ago) Currently Displaying Signs/Symptoms of Drug Intoxication Withdrawal: No Any prior treatment program specific to substance use: No Have you been hit, kicked, punched, or otherwise hurt by someone within the past year? If so, by whom?: No Do you feel safe in your current relationship?: Yes Is there a partner from a previous relationship who is making you feel unsafe now?: No Are you made to feel afraid or neglected: No Advance Directives: Yes Advance Directives on File: Yes Advance Directives Date on File: 03/09/23 Do you have a plan to hurt others: No Plan Recently lost weight without trying: No Eating poorly because of decreased appetite: Yes Nutrition Risks: No Nutritional Risk Patient : No service: No <ORESTES Mckee - Last Filed: 11/15/23 17:55> Meds Allergies/Adverse reactions: Allergies Allergy/AdvReac Type Severity Reaction Status Date / Time Iodinated Contrast Media Allergy Intermediate HIVES Verified 11/15/23 12:45 [IV CONTRAST] acetaminophen [From VICODIN] Allergy Unknown VOMITING Verified 11/15/23 12:45 hydrocodone [From VICODIN] Allergy Unknown VOMITING Verified 11/15/23 12:45 latex [LATEX] Allergy Unknown RASH Verified 11/15/23 12:45 oxycodone [From PERCOCET] Allergy Unknown VOMITING Verified 11/15/23 12:45 procaine [From Novocain] Allergy Unknown HIVES Verified 11/15/23 12:45 morphine [MORPHINE] AdvReac Unknown VOMITING Verified 11/15/23 12:45 <ORESTES Mckee - Last Filed: 11/15/23 17:55> Active Medications: Current Medications Acetaminophen (Acetaminophen 325 Mg Tablet) 650 mg PO Q6H PRN PRN Reason: Pain, Mild (Pain Scale 1-3) Albuterol/Ipratropium (Albuterol/Iprat 2.5/0.5mg 3 Ml Ampul.Neb) 3 ml INHALE Q4H PRN PRN Reason: Shortness of Breath/Wheezing Albuterol/Ipratropium (Albuterol/Iprat 2.5/0.5mg 3 Ml Ampul.Neb) 3 ml INHALE RQ4H WHILE AWAKE [place] Enoxaparin Sodium (Enoxaparin Sodium 40 Mg/0.4 Ml Syringe) 40 mg SUBCUT Q24H [place] Guaifenesin (Guaifenesin 200 Mg/10 Ml 10 Ml Liquid) 10 ml PO Q6H [place] Magnesium Hydroxide (Milk Of Magnesia 30 Ml Oral.Susp) 30 ml PO DAILY PRN PRN Reason: Constipation Methylprednisolone Sodium Succinate (Methylprednisolone Sod Succ 40 Mg/Ml Vial) 40 mg IVPUSH Q12H [place] Ondansetron HCl (Ondansetron Hcl 4 Mg/2 Ml Vial) 4 mg IVPUSH Q8H PRN PRN Reason: Nausea and Vomiting Sodium Chloride (0.9 % Sodium Chloride Flush 3 Ml Syringe) 3 ml IVFLUSH QSHIFT [place] <ORESTES Mckee - Last Filed: 11/15/23 17:55> Home medications: Home Medications ?Medication ?Instructions ?Recorded ?Confirmed ?Last Taken ?Type atorvastatin 80 mg tablet 80 mg PO BEDTIME 03/04/23 11/15/23 11/14/23 History baclofen 10 mg tablet 10 mg PO TID 03/04/23 11/15/23 11/15/23 History ezqvamkwxr-rytegbfxhztft-igsdhven 1 tab PO DAILY PRN Headache 03/04/23 11/15/23 11/15/23 History 50 mg-325 mg-40 mg tablet duloxetine 60 mg capsule,delayed 60 mg PO BID 03/04/23 11/15/23 11/15/23 History release gabapentin 300 mg capsule 1,200 mg PO TID 03/04/23 11/15/23 11/15/23 History hydrocodone 5 mg-acetaminophen 325 1 tab PO DAILY PRN Pain 03/04/23 11/15/23 11/15/23 History mg tablet hyoscyamine sulfate 0.125 mg tablet 0.125 - 0.25 mg PO Q4-6H PRN 03/04/23 11/15/23 11/15/23 History Abdominal Discomfort lorazepam 1 mg tablet 1 mg PO DAILY PRN Anxiety 03/04/23 11/15/23 11/15/23 History oxcarbazepine 600 mg tablet 600 mg PO BID 03/04/23 11/15/23 11/15/23 History Oxygen Home Use 04/16/23 Unknown History prazosin 2 mg capsule 2 mg PO BEDTIME 04/16/23 11/15/23 11/14/23 History albuterol sulfate 90 mcg/actuation 2 inh inhalation Q4H PRN shortness 11/15/23 11/15/23 11/15/23 History aerosol inhaler of breath or wheezing calcium carbonate 600 mg-vitamin 1 tab PO DAILY 11/15/23 11/15/23 11/15/23 History D3 5 mcg (200 unit) tablet <ORESTES Mckee - Last Filed: 11/15/23 17:55> Physical Exam Vital Signs and Narrative: Vital Signs: Last Vital Signs Temp 96.2 F L 11/15/23 12:40 Pulse 94 11/15/23 17:04 Resp 30 H 11/15/23 17:04 BP 196/105 H 11/15/23 17:04 Pulse Ox 92 11/15/23 17:04 O2 Del Method Nasal Cannula 11/15/23 17:04 O2 Flow Rate 2 11/15/23 17:04 Oxygen Flow Rate 3 11/15/23 12:40 BMI result Body Mass Index 31.2 <ORESTES Mckee - Last Filed: 11/15/23 17:55> Constitutional - Awake and Alert, No apparent distress Eyes - PERRLA, EOMI Cardiovascular - S1S2, RRR, No edema Respiratory - Normal lung expansion, mild respiratory distress with increased WOB, diminished lung sounds but with diffuse expiratory wheezing Gastrointestinal - NT / ND; +BS; No rebound or guarding Extremities - no calf tenderness bilaterally, no swelling Skin - Warm/Dry Neurological - Alert & oriented x3 Psychological - anxious <ORESTES Mckee - Last Filed: 11/15/23 17:55> Results Labs CBC and Chem 7: 11/16/23 04:38 11/16/23 04:38 <ORESTES Mckee - Last Filed: 11/15/23 17:55> Labs: Laboratory Results - last 24 hr 11/15/23 11/15/23 11/15/23 14:18 14:21 14:44 MCV 94.9 MCH 32.1 MCHC 33.8 RDW 13.2 Plt Count 353 MPV 9.2 L Immature Gran % (Auto) 0.2 Neut % (Auto) 56.1 Lymph % (Auto) 26.9 [place] % (Auto) 10.0 Eos % (Auto) 6.1 H Baso % (Auto) 0.7 Lymph # (Auto) 3.0 [place] # (Auto) 1.1 Eos # (Auto) 0.7 H Baso # (Auto) 0.1 Abs Immat Gran (auto) 0.02 Absolute Neuts (auto) 6.2 Absolute Nucleated RBC 0.000 Nucleated RBC % (auto) 0.0 VBG pH 7.38 VBG pCO2 42 VBG pO2 87 VBG HCO3 26 VBG O2 Saturation 98.0 VBG Base Excess 0.8 Anion Gap 15 Estim Creat Clear Calc 75.8 Estimated GFR > 60 Random Glucose 129 H Calcium 10.3 H <ORESTES Mckee - Last Filed: 11/15/23 17:55> Imaging Radiologist's Impressions: Impressions Chest X-Ray 11/15/23 13:53 IMPRESSION: No acute abnormality. <ORESTES Mckee - Last Filed: 11/15/23 17:55> Assessment and Plan (1) Acute and chronic respiratory failure with hypoxia: Status: Acute <ORESTES Mckee Last Filed: 11/15/23 17:55> (2) COPD exacerbation: Status: Acute <ORESTES Mckee Last Filed: 11/15/23 17:55> 58-year-old female with history of hyperlipidemia, mood disorder, COPD with exercise hypoxemia and nocturnal hypoxemia, lacunar infarcts, PTSD, MVR, occipital neuralgia, tricuspid insufficiency, brain aneurysm, and right-sided sciatica admitted for COPD exacerbation with acute on chronic hypoxemic respiratory failure # COPD exacerbation with acute on chronic hypoxemic respiratory failure and respiratory distress -mild tachycardia due to albuterol. No evidence of sepsis -cxr negative -Check RPP -IV methylprednisolone 40 mg b.i.d. -DuoNebs q.4h while awake/p.r.n. -guaifenesin -p.r.n. Dilaudid for respiratory distress -continue maintenance inhalers -azithromycin IV for pleiotropic effect -admit to med surge -continue supplemental O2 per protocol, wean as tolerated #Mood disorder/anxiety -give 1 mg Ativan now, continue 1 mg daily p.o. p.r.n. -continue mood stabilizers # elevated blood pressure -possibly related to steroids/albuterol use -give 1 time dose 10 mg labetalol -initiate amlodipine 5 mg daily #Occipital/trigeminal neuralgia- following parotid gland mass -continue baclofen, gabapenin, vicadin #HLD -continue statin dvt prophyalxis- lovenox full code Patient requires inpatient stay at least 2 midnights for management of COPD exacerbation with acute on chronic hypoxemic respiratory failure in respiratory distress requiring IV narcotics for work of breathing, IV steroids, scheduled nebulizer treatments and close monitoring of respiratory status to monitor for and prevent decompensation <ORESTES Mckee - Last Filed: 11/15/23 17:55> 58-year-old female with history of hyperlipidemia, mood disorder, COPD with exercise hypoxemia and nocturnal hypoxemia, lacunar infarcts, PTSD, MVR, occipital neuralgia, tricuspid insufficiency, brain aneurysm, and right-sided sciatica admitted for COPD exacerbation with acute on chronic hypoxemic respiratory failure # COPD exacerbation with acute on chronic hypoxemic respiratory failure and respiratory distress -mild tachycardia due to albuterol. No evidence of sepsis -cxr negative -Check RPP -IV methylprednisolone 40 mg b.i.d. -DuoNebs q.4h while awake/p.r.n. -guaifenesin -p.r.n. Dilaudid for respiratory distress -continue maintenance inhalers -azithromycin IV for pleiotropic effect -admit to med surge -continue supplemental O2 per protocol, wean as tolerated #Mood disorder/anxiety -give 1 mg Ativan now, continue 1 mg daily p.o. p.r.n. -continue mood stabilizers # elevated blood pressure -possibly related to steroids/albuterol use 1 time dose 10 mg labetalol,given amlodipine 5 mg will decide further amlodipine use if blood pressure consistently elevated. #Occipital/trigeminal neuralgia- following parotid gland mass -continue baclofen, gabapenin, vicadin #HLD -continue statin overweight -encouraged to lose weight ,cut down calories. dvt prophyalxis- lovenox full code Patient requires inpatient stay at least 2 midnights for management of COPD exacerbation with acute on chronic hypoxemic respiratory failure in respiratory distress requiring IV narcotics for work of breathing, IV steroids, scheduled nebulizer treatments and close monitoring of respiratory status to monitor for and prevent decompensation <Maye Harrison MD - Last Filed: 11/16/23 14:21> Quality Stroke Does the patient have a stroke diagnosis?: No <ORESTES Mckee - Last Filed: 11/15/23 17:55> VTE Prior VTE?: No <ORESTES Mckee - Last Filed: 11/15/23 17:55> VTE Risk Level:: Medical - moderate - high <ORESTES Mckee - Last Filed: 11/15/23 17:55> VTE Device Contraindication: Treatment Not Indicated <ORESTES Mckee - Last Filed: 11/15/23 17:55> VTE Drug Contraindication: N/A - Med Ordered <ORESTES Mckee - Last Filed: 11/15/23 17:55>
[2023-11-15] MEDS: Enoxaparin Sodium 40 MG/0.4 ML SYRINGE SUBCUT (17:50)
[2023-11-15] MEDS: Labetalol HCL 100 MG/20 ML VIAL 10 MG IVPUSH (17:50)
[2023-11-15] MEDS: LORazepam 1 MG TABLET PO (17:50)
--- NOTE | 2023-11-15 18:11 | PC.NURSE ---
pt severely anxious. medicated with PO ativan which is a home med. continued reassurance required during medication administration.
[2023-11-15] MEDS: Azithromycin 500 MG in 0.9 % Sodium Chloride 250 ML 125 MG IV (19:31)
[2023-11-15] MEDS: Dextrose 5 % and 0.45 % NaCl 1,000 ML 100 ML IVCONT (19:31)
[2023-11-15] MEDS: guaiFENesin 200 MG/10 ML 10 ML LIQUID PO (19:31)
[2023-11-15] MEDS: amLODIPine Besylate 5 MG TABLET PO (19:31)
[2023-11-15] MEDS: Albuterol/Iprat 2.5/0.5MG 3 ML AMPUL.NEB INHALE (20:05)
[2023-11-15] MEDS: Prazosin HCL 1 MG CAPSULE 2 MG PO (22:39)
[2023-11-15] MEDS: Gabapentin 400 MG CAPSULE 1200 MG PO (22:39)
[2023-11-15] MEDS: DULoxetine HCl 60 MG CAPSULE.DR PO (22:39)
[2023-11-15] MEDS: methylPREDNISolone Sod Succ 40 MG/ML VIAL IVPUSH (22:39)
[2023-11-15] MEDS: OXcarbazepine 300 MG TABLET 600 MG PO (22:40)
[2023-11-15] MEDS: Atorvastatin Calcium 80 MG TABLET PO (22:40)
[2023-11-16] VITALS (26 sets, daily range): BP systolic 93–164; BP diastolic 52–102; PULSE 74–127; RESP 14–26; TEMP 36.3–37.1; O2SAT 87–98
[2023-11-16] MEDS: 0.9 % Sodium Chloride Flush 3 ML SYRINGE IVFLUSH ×3 (00:38→18:40)
[2023-11-16] MEDS: HYDROmorphone HCl 0.5 MG/0.5 ML SYRINGE 0.25 MG IVPUSH ×2 (00:38→17:33)
[2023-11-16] MEDS: guaiFENesin 200 MG/10 ML 10 ML LIQUID PO ×3 (00:39→18:38)
--- NOTE | 2023-11-16 00:46 | PC.NURSE ---
pt experiencing increased WOB and SOB. 02 desatting to 88% on oxymask. MD aware. meds administered. Respiratory called for treatment.
[2023-11-16] MEDS: Albuterol/Iprat 2.5/0.5MG 3 ML AMPUL.NEB INHALE ×6 (00:54→23:07)
[2023-11-16 01:31] LABS: ABG Refer to POC result; ABG HCO3 25 mmol/L (22-26); ABG pCO2 50 mmHg (32-45); ABG pO2 69 mmHg (83-108)
--- NOTE | 2023-11-16 01:37 | PM.EVENT ---
Event Note Date of Service: 11/16/23 Event Note: Was notified by the nurse that patient is dyspneic. Upon examination, bilateral wheezing, tachypnea tachycardia present. Patient given multiple rounds of DuoNeb treatment, additional IV steroids without much improvment. Obtained ABG which revealed respiratory acidosis. Talked to Dr Saunders and will transfer the patient to ICU for closer monitoring and treatment. Chest xray and BNP pending Time Spent With Patient Time: Total time managing care of this patient today ____ minutes.
--- NOTE | 2023-11-16 02:07 | P.PNCC_ITS ---
Critical Care Event Note Summary Date of Service: 11/16/23 <ORESTES Mcfarland - Last Filed: 11/16/23 02:52> Code activated: No <ORESTES Mcfarland - Last Filed: 11/16/23 02:52> Narrative: This case had a high probability of a clinically significant, sudden, or life threatening deterioration of this patient's condition which required my full and direct attention, intervention and personal management. <ORESTES Mcfarland - Last Filed: 11/16/23 02:52> Critical Care Time (minutes): 60 <ORESTES Mcfarland - Last Filed: 11/16/23 02:52> Comment: Clinical Precedent to this date: ?Patient is a 58-year-old female with underlying history of exercise related hypoxia nocturnal hypoxemia COPD, hyperlipidemia, lacunar infarcts, occipital neuralgia, [place] aneurysms, sciatica, pulmonary nodules, among others, was admitted to the hospitalist service due to complaints of shortness of breath attributed to a COPD exacerbation and acute on chronic hypoxic respiratory failure and respiratory distress, the time the patient was treated with prednisone and DuoNebs, given p.r.n. Dilaudid, comorbidities were addressed.? While in the hospital the patient developed more shortness of breath therefore we were consulted to see the patient given her tripoding position, increased respiratory rate, tachycardia and concern for rapid decline. Today pt states she has been feeling wheezy, short of breath for the past 5 days in an increase manner she does have a cough without any sputum production, she has a lifelong smoker with a 40 pack-year history and stopped smoking when she got sick 5 days ago.? She has had respiratory failure before.? Denies any fever or chills, no chest pain or palpitations, no arm or jaw pain, no recent traveling.? Although initially she felt better while treated in the emergency room, she continued to feel some tightness of her chest and more wheezing as the night progressed despite of the breathing treatments she has been getting, other than that she has no further complaints. Review of systems: As above, otherwise the patient denies any prior history of strokes, cold intolerance, migraine headaches, head trauma, no eyes, ears or nose problems, no problems swallowing or with phonation, no thyroid disease, denies any history of chest pain, palpitations, coronary disease, abdominal pain, nausea, vomiting, diarrhea, abdominal surgeries, melena, hematochezia, hematemesis, hematuria, kidney stones, liver problems, immunocompromise state of any kind, no history of DVT or PE, leg edema, fractures or extremity surgeries all other review of systems were reviewed and they were all negative. VS: 143/74; 127; 26; 92% on oxymask 3L General:? Alert oriented x 3; NAD, has audible wheezing, no tripodding, no accessory muscle use Skin:? Intact, no lesions or rash HEENT:? Normocephalic, atraumatic, extraocular movements intact, neck is supple, no lymphadenopathy.? Buccal mucosa moist.? Throat midline. Cardiac:? Clear S1-S2, machinery like murmur noted at the left 2nd and 3rd intercostal spaces. Pulmonary:? Diffuse wheezing anteriorly and posteriorly mostly in the upper lung marshall without any rhonchi, rales or crackles. Abdomen:? Protuberant, positive bowel sounds in all 4 quadrants.? Soft, nontender, no rebound or guarding.? No CVA tenderness. Musculoskeletal:? Moving all 4 extremities upon request a major joints, no calf tenderness, no edema. Neurologic:? As above, no focal deficits. Vascular:? 2+ pulses upper and lower extremities distally. No clubbing. SIGNIFICANT LABORATORY DATA: ?White blood cells 11.0, H&H 16.5 and 40.8 respectively, platelets 353, sodium 146, potassium 4.1, chloride 105, carbon dioxide 30, BUN 7, creatinine 0.73, respiratory panel pending. Initial venous blood gas was unremarkable Subsequent ABG shows pH of 7.3, pCO2 50, PO2 of 69, HC03 25 REVIEW OF IMAGES: ?No acute pulmonary pathology. EKG REVIEW: ?To my view this sinus rhythm ventricular rate of 77 beats per minute. ?There is no ST elevations, no ST depressions.? Poor quality study with artifact.? QTC 389 MS.? ASSESSMENT : 1. Acute hypoxic/hypercapnic respiratory failure 2. Acute mild respiratory acidosis 3. Severe bronchoconstriction in the setting of acute COPD exacerbation 4. Tobacco use disorder 5. Hemoconcentration and clinical dehydration 6. Hypoosmolar hypovolemic hypernatremia due to 5. PLAN OF CARE: Patient will be transferred to the ICU, she has not tripoding and is not using accessory muscles at this point.? She certainly could use BiPAP mainly to avoid further retention of CO2, I have requested her O2 sat goal between 88-90%, we will change her DuoNeb frequency and albuterol rescue inhaler, steroid dosing to be more frequent regimen. Patient and I discussed the risk of continued to smoke, she is willing to quit, at this point she declines Nicoderm patch. ?Dilaudid for work of breathing. I do not think the patient is in heart failure, she already did receive IV fluids, check labs in the morning.? Respiratory panel is pending. I will start her on Rocephin empirically given her COPD diagnosis; will DC macrolide which is secondary alternative. GI PROPHYLAXIS: Famotidine DVT PROPHYLAXIS:? On Lovenox Critical care time used for critical evaluation of this patient, diagnosis, treatment and coordination of care, review her records and documentation TOTAL CRITICAL CARE TIME 60?? MIN . discussion and coordination with consultants, completely separate from any procedures performed. Patient's care was discussed in detail with Dr. Saunders who is aware of all the above as well as the plan of care for this patient. ? <ORESTES Mcfarland - Last Filed: 11/16/23 02:52> Clinical Precedent to this date: ?Patient is a 58-year-old female with un derlying history of exercise related hypoxia nocturnal hypoxemia COPD, hyperlipidemia, lacunar infarcts, occipital neuralgia, Nne[place] aneurysms, sciatica, pulmonary nodules, among others, was admitted to the hospitalist service due to complaints of shortness of breath attributed to a COPD exacerbation and acute on chronic hypoxic respiratory failure and respiratory distress, the time the patient was treated with prednisone and DuoNebs, given p.r.n. Dilaudid, comorbidities were addressed.? While in the hospital the patient developed more shortness of breath therefore we were consulted to see the patient given her tripoding position, increased respiratory rate, tachycardia and concern for rapid decline. Today pt states she has been feeling wheezy, short of breath for the past 5 days in an increase manner she does have a cough without any sputum production, she has a lifelong smoker with a 40 pack-year history and stopped smoking when she got sick 5 days ago.? She has had respiratory failure before.? Denies any fever or chills, no chest pain or palpitations, no arm or jaw pain, no recent traveling.? Although initially she felt better while treated in the emergency room, she continued to feel some tightness of her chest and more wheezing as the night progressed despite of the breathing treatments she has been getting, other than that she has no further complaints. Review of systems: As above, otherwise the patient denies any prior history of strokes, cold intolerance, migraine headaches, head trauma, no eyes, ears or nose problems, no problems swallowing or with phonation, no thyroid disease, denies any history of chest pain, palpitations, coronary disease, abdominal pain, nausea, vomiting, diarrhea, abdominal surgeries, melena, hematochezia, hematemesis, hematuria, kidney stones, liver problems, immunocompromise state of any kind, no history of DVT or PE, leg edema, fractures or extremity surgeries all other review of systems were reviewed and they were all negative. VS: 143/74; 127; 26; 92% on oxymask 3L General:? Alert oriented x 3; NAD, has audible wheezing, no tripodding, no accessory muscle use Skin:? Intact, no lesions or rash HEENT:? Normocephalic, atraumatic, extraocular movements intact, neck is supple, no lymphadenopathy.? Buccal mucosa moist.? Throat midline. Cardiac:? Clear S1-S2, machinery like murmur noted at the left 2nd and 3rd intercostal spaces. Pulmonary:? Diffuse wheezing anteriorly and posteriorly mostly in the upper lung marshall without any rhonchi, rales or crackles. Abdomen:? Protuberant, positive bowel sounds in all 4 quadrants.? Soft, nontender, no rebound or guarding.? No CVA tenderness. Musculoskeletal:? Moving all 4 extremities upon request a major joints, no calf tenderness, no edema. Neurologic:? As above, no focal deficits. Vascular:? 2+ pulses upper and lower extremities distally. No clubbing. SIGNIFICANT LABORATORY DATA: ?White blood cells 11.0, H&H 16.5 and 40.8 respectively, platelets 353, sodium 146, potassium 4.1, chloride 105, carbon dioxide 30, BUN 7, creatinine 0.73, respiratory panel pending. Initial venous blood gas was unremarkable Subsequent ABG shows pH of 7.3, pCO2 50, PO2 of 69, HC03 25 REVIEW OF IMAGES: ?No acute pulmonary pathology. EKG REVIEW: ?To my view this sinus rhythm ventricular rate of 77 beats per minute. ?There is no ST elevations, no ST depressions.? Poor quality study with artifact.? QTC 389 MS.? ASSESSMENT : 1. Acute hypoxic/hypercapnic respiratory failure 2. Acute mild respiratory acidosis 3. Severe bronchoconstriction in the setting of acute COPD exacerbation 4. Tobacco use disorder 5. Hemoconcentration and clinical dehydration 6. Hypoosmolar hypovolemic hypernatremia due to 5. PLAN OF CARE: Patient will be transferred to the ICU, she has not tripoding and is not using accessory muscles at this point.? She certainly could use BiPAP mainly to avoid further retention of CO2, I have requested her O2 sat goal between 88-90%, we will change her DuoNeb frequency and albuterol rescue inhaler, steroid dosing to be more frequent regimen. Patient and I discussed the risk of continued to smoke, she is willing to quit, at this point she declines Nicoderm patch. ?Dilaudid for work of breathing. I do not think the patient is in heart failure, she already did receive IV fluids, check labs in the morning.? Respiratory panel is pending. I will start her on Rocephin empirically given her COPD diagnosis; will DC macrolide which is secondary alternative. update: Patient was placed on BiPAP support overnight with which her breathing improved. This morning patient has been off from her BiPAP and is tolerating well, allow feeds. Continue IV Solu-Medrol and duo nebs around the clock. 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 She is on p.r.n. [place] Target saturations above 88 given she has underlying COPD GI PROPHYLAXIS: Famotidine DVT PROPHYLAXIS:? On Lovenox Critical care time used for critical evaluation of this patient, diagnosis, treatment and coordination of care, review her records and documentation TOTAL CRITICAL CARE TIME 60?? MIN . Mostly spent on admission to the critical care unit, formulating critical care plan and management, stabilizing patient's breathing, close monitoring of the respiratory status, managing NIPPV, weaning off of the an NIPPV during the day, discussion and coordination with consultants, completely separate from any procedures performed. ? <Murphy Saunders MD - Last Filed: 11/16/23 10:28>
[2023-11-16 02:27] LABS: B Type Natriuretic Peptide 81 pg/mL (<100)
[2023-11-16] MEDS: cefTRIAXone sodium 1 GM in 0.9 % Sodium Chloride 50 ML IV (02:47)
[2023-11-16] MEDS: methylPREDNISolone Sod Succ 125 MG/2 ML VIAL 60 MG IVPUSH (02:47)
[2023-11-16] MEDS: Albuterol/Iprat 2.5/0.5MG 3 ML AMPUL.NEB 6 ML INHALE (04:23)
--- NOTE | 2023-11-16 04:56 | PC.NURSE ---
pt reporting increased pain in back from sciatica. states she wont be able to move in bed or transfer onto commode if pain continues. carbon paper interleafer ORESTES aware
[2023-11-16 05:59] LABS: MANUAL DIFF FLAG NO
[2023-11-16 06:20] LABS: Basophils Percent Auto 0.2 % (0-2); Eosinophils Absolute Auto 0.1 X10*3/uL (0.0-0.4); Eosinophils Percent Auto 0.7 % (0-4); Hematocrit 43.6 % (37.0-47.0); Hemoglobin 14.7 g/dl (12.0-16.0); Imm Gran Abs Auto 0.04 X10*3/uL (0.00-0.03); Imm Gran Pct Auto 0.3 % (0.0-0.4); Lymphocytes Absolute Auto 0.8 X10*3/uL (1.2-4.9); Lymphocytes Percent Auto 5.7 % (20-40); Mean Corpuscular HGB Conc 33.7 g/dl (31.0-35.0); Mean Corpuscular Hemoglobin 32.4 pg (27.0-33.0); Mean Platelet Volume 9.8 fL (9.4-12.3); Monocytes Absolute Auto 0.8 X10*3/uL (0.1-1.2); Neutrophils Percent Auto 87.1 % (45-73); Platelet Count 328 X10*3/uL (160-400); Red Blood Count 4.54 X10*6/uL (4.20-5.50); Red Cell Distribution Width 13.5 % (11.0-16.0); White Blood Count 13.8 X10*3/uL (4.8-10.8)
[2023-11-16 06:22] LABS: Anion Gap 15 (12-20); Blood Urea Nitrogen 15 mg/dL (9-16); Calcium 9.4 mg/dL (8.4-10.2); Carbon Dioxide 23 mmol/L (22-29); Chloride 107 mmol/L (96-108); Creatinine Clr Calc Pharmacy 77.9; Estimated Glomerular Filt Rate > 60; Glucose Random 122 mg/dL (60-115); Potassium 3.7 mmol/L (3.3-5.1); Sodium 141 mmol/L (135-145)
[2023-11-16] MEDS: Famotidine/PF 20 MG/2 ML VIAL IVPUSH ×2 (06:43→09:32)
--- NOTE | 2023-11-16 06:53 | PC.NURSE ---
Patient arrived to ICU from ED at 06:38. Stand pivot from stretcher to bed. Patient placed on tele and o2 monitoring, vitals obtained. Patient oriented to room, bed mechanics, and call dumont that was placed within reach. Bed alarm on and safety measures in place. Handoff report given to oncoming RN at 06:54.
--- NOTE | 2023-11-16 08:35 | PM.CCN ---
Critical Care Event Note Summary Date of Service: 11/16/23 Code activated: No Narrative: This case had a high probability of a clinically significant, sudden, or life threatening deterioration of this patient's condition which required my full and direct attention, intervention and personal management. Critical Care Time (minutes): 0 Comment: Patient admitted for the management of COPD exacerbation She got flagged for sepsis but patient does not have any source of infection. Chest x-ray is clear no evidence of pneumonia. Her BiPAP requirement is secondary to chronic lung disease. Elevated white counts might be secondary to steroids No fluid bolus given.
[2023-11-16] MEDS: HYDROcodone Bit/Acetam 5/325 TABLET 1 TAB PO (09:31)
[2023-11-16] MEDS: OXcarbazepine 300 MG TABLET 600 MG PO ×2 (09:31→21:03)
[2023-11-16] MEDS: Calcium + Vitamin D 250 MG TABLET 500 MG PO (09:32)
[2023-11-16] MEDS: methylPREDNISolone Sod Succ 40 MG/ML VIAL IVPUSH ×2 (09:32→18:38)
[2023-11-16] MEDS: amLODIPine Besylate 5 MG TABLET PO (09:32)
[2023-11-16] MEDS: Gabapentin 400 MG CAPSULE 1200 MG PO ×3 (09:32→21:02)
[2023-11-16] MEDS: DULoxetine HCl 60 MG CAPSULE.DR PO ×2 (09:32→21:02)
[2023-11-16 10:04] LABS: Adenovirus PCR Not Detected (Not Detect.); Bordetella parapertussis PCR Not Detected (Not Detect.); Bordetella pertussis PCR Not Detected (Not Detect.); Chlamydia pneumoniae PCR Not Detected (Not Detect.); Coronavirus 229E PCR Not Detected (Not Detect.); Coronavirus HKU1 PCR Not Detected (Not Detect.); Coronavirus NL63 PCR Not Detected (Not Detect.); Coronavirus OC43 PCR Not Detected (Not Detect.); Human metapneumovirus PCR Not Detected (Not Detect.); Influenza A PCR Not Detected (Not Detect.); Influenza B PCR Not Detected (Not Detect.); Mycoplasma pneumoniae PCR Not Detected (Not Detect.); Parainfluenza 1 PCR Not Detected (Not Detect.); Parainfluenza 2 PCR Not Detected (Not Detect.); Parainfluenza 3 PCR Not Detected (Not Detect.); Parainfluenza 4 PCR Not Detected (Not Detect.); RSV PCR Not Detected (Not Detect.); Rhino/Enterovirus PCR Not Detected (Not Detect.)
--- NOTE | 2023-11-16 10:12 | MHC.CM.PN ---
Met w/pt to review d/c planning needs: pt resides w/spouse who is not able to assist pt w/physical needs d/t disability. She uses a walker and has [employer] for home O2 needs. Pt does not have a vehicle and limited supports - she states they walk or use paid transportation. Pt declined VNA but did ask for assistance with transportation to home - will need BLS for O2. CM to follow for changes in d/c plan HCP copy from home requested: pt states her proxy is spouse Eric.
[2023-11-16 10:28] LABS: SARS-CoV-2 PCR Not Detected (Not Detect.)
[2023-11-16] MEDS: HYDROcodone Bit/Acetam 7.5/325 TABLET 1 TAB PO (14:08)
[2023-11-16] MEDS: Baclofen 10 MG TABLET PO (14:58)
[2023-11-16] MEDS: Tiotropium Bromide 2.5 mcg 1 PUFF/2.5 MCG MIST.INHAL 2 PUFF INHALE (15:12)
[2023-11-16] MEDS: Enoxaparin Sodium 40 MG/0.4 ML SYRINGE SUBCUT (18:38)
--- NOTE | 2023-11-16 18:52 | P.EN_ITS ---
Event Note Date of Service: 11/17/23 Event Note: Seen/examined, meds reviewed and plan discussed with stocking inspector. Continue monitoring respitory status, pulmonology consult in am Time Spent With Patient Time: Total time managing care of this patient today ____ minutes.
[2023-11-16] MEDS: Prazosin HCL 1 MG CAPSULE 2 MG PO (21:02)
[2023-11-16] MEDS: LORazepam 1 MG TABLET PO (21:03)
[2023-11-16] MEDS: Atorvastatin Calcium 80 MG TABLET PO (21:03)
[2023-11-17] VITALS (17 sets, daily range): BP systolic 128–182; BP diastolic 64–80; PULSE 76–106; RESP 18–29; TEMP 36.1–36.7; O2SAT 90–96; BMI 33.8
[2023-11-17] MEDS: guaiFENesin 200 MG/10 ML 10 ML LIQUID PO ×5 (01:00→23:50)
[2023-11-17] MEDS: 0.9 % Sodium Chloride Flush 3 ML SYRINGE IVFLUSH ×4 (01:00→23:50)
[2023-11-17] MEDS: HYDROmorphone HCl 0.5 MG/0.5 ML SYRINGE 0.25 MG IVPUSH ×4 (01:05→23:53)
[2023-11-17] MEDS: cefTRIAXone sodium 1 GM in 0.9 % Sodium Chloride 50 ML IV (03:25)
[2023-11-17] MEDS: methylPREDNISolone Sod Succ 40 MG/ML VIAL IVPUSH ×3 (03:25→17:10)
[2023-11-17] MEDS: DULoxetine HCl 60 MG CAPSULE.DR PO ×2 (05:09→21:25)
[2023-11-17] MEDS: Gabapentin 400 MG CAPSULE 1200 MG PO ×3 (05:09→21:25)
[2023-11-17] MEDS: Baclofen 10 MG TABLET PO ×2 (05:10→15:36)
[2023-11-17] MEDS: OXcarbazepine 300 MG TABLET 600 MG PO ×2 (05:10→21:25)
[2023-11-17] MEDS: Albuterol/Iprat 2.5/0.5MG 3 ML AMPUL.NEB INHALE ×5 (05:49→21:42)
[2023-11-17] MEDS: Tiotropium Bromide 2.5 mcg 1 PUFF/2.5 MCG MIST.INHAL 2 PUFF INHALE (07:42)
[2023-11-17] MEDS: Butalb/Acetamin/Caff 50/325/40 TABLET 1 TAB PO (08:53)
[2023-11-17] MEDS: amLODIPine Besylate 5 MG TABLET PO ×2 (08:53→11:07)
[2023-11-17] MEDS: HYDROcodone Bit/Acetam 7.5/325 TABLET 1 TAB PO ×2 (08:53→15:37)
[2023-11-17] MEDS: Calcium + Vitamin D 250 MG TABLET 500 MG PO (08:53)
[2023-11-17] MEDS: Famotidine/PF 20 MG/2 ML VIAL IVPUSH (08:54)
--- NOTE | 2023-11-17 10:21 | MHC.CM.PN ---
Per ROUNDS discussion, Patient is not yet medically cleared for dc (just out of ICU and still,SOB); Home is the goal and CM will continue to follow.
--- NOTE | 2023-11-17 10:52 | P.PNIM_ITS ---
Subjective Subjective Date of Service: 11/17/23 Interval History: f/u on copd exacerbation, acute hypoxic resp failure s/p rescue bipap in icu overal better, but still very wheezy and easily short of breath Physical Exam 2 Vital Signs: Vital Signs: Last Vital Signs Temp 97.0 F 11/17/23 07:17 Pulse 85 11/17/23 07:49 Resp 18 11/17/23 07:49 BP 155/68 H 11/17/23 08:53 Pulse Ox 92 11/17/23 07:17 O2 Del Method Oxymask 11/17/23 07:17 O2 Flow Rate 2 11/17/23 07:17 FiO2 24 11/16/23 08:00 Oxygen Flow Rate 3 11/15/23 12:40 BMI result Body Mass Index 33.8 General: AO X 3, no acute distress Resp: diffuse wheeze, mild wob CVS: S1,S2,RRR GI: +BS, NT, no distention Skin: No rash Neuro: motor grossly intact Psych: appropriate affect Objective Data Active Medications Acetaminophen (Acetaminophen 325 Mg Tablet) 650 mg PO Q6H PRN PRN Reason: Pain, Mild (Pain Scale 1-3) Acetaminophen/Butalbital/Caffeine (Butalb/Acetamin/Caff 50/325/40 Tablet) 1 tab PO DAILY PRN PRN Reason: Headache Last Admin: 11/17/23 08:53 Dose: 1 tab Documented By: JEANETTE Hydrocodone Bitart/Acetaminophen (Hydrocodone Bit/Acetam 7.5/325 Tablet) 1 tab PO Q4H PRN PRN Reason: Pain, Moderate(Pain Scale 4-6) Last Admin: 11/17/23 08:53 Dose: 1 tab Documented By: JEANETTE Albuterol/Ipratropium (Albuterol/Iprat 2.5/0.5mg 3 Ml Ampul.Neb) 3 ml INHALE Q4H [facility] Last Admin: 11/17/23 05:49 Dose: 3 ml Documented By: CRISTOFER Amlodipine Besylate (Amlodipine Besylate 5 Mg Tablet) 5 mg PO DAILY [facility]; Protocol Last Admin: 11/17/23 08:53 Dose: 5 mg Documented By: JEANETTE Atorvastatin Calcium (Atorvastatin Calcium 80 Mg Tablet) 80 mg PO BEDTIME [facility] Last Admin: 11/16/23 21:03 Dose: 80 mg Documented By: KURT Baclofen (Baclofen 10 Mg Tablet) 10 mg PO TID PRN PRN Reason: Pain, Moderate(Pain Scale 4-6) Last Admin: 11/17/23 05:10 Dose: 10 mg Documented By: CHER Calcium Carbonate/Cholecalciferol (Calcium + Vitamin D 250 Mg Tablet) 500 mg PO DAILY [facility] Last Admin: 11/17/23 08:53 Dose: 500 mg Documented By: JEANETTE Duloxetine HCl (Duloxetine Hcl 60 Mg Capsule.Dr) 60 mg PO BID [facility] Last Admin: 11/17/23 05:09 Dose: 60 mg Documented By: CHER Comments: per pt request. approved Enoxaparin Sodium (Enoxaparin Sodium 40 Mg/0.4 Ml Syringe) 40 mg SUBCUT Q24H [facility] Last Admin: 11/16/23 18:38 Dose: 40 mg Documented By: MICAELA Famotidine (Famotidine/Pf 20 Mg/2 Ml Vial) 20 mg IVPUSH DAILY [facility] Last Admin: 11/17/23 08:54 Dose: 20 mg Documented By: JEANETTE Gabapentin (Gabapentin 400 Mg Capsule) 1,200 mg PO TID [facility] Last Admin: 11/17/23 05:09 Dose: 1,200 mg Documented By: CHER Comments: per pt request. approved Guaifenesin (Guaifenesin 200 Mg/10 Ml 10 Ml Liquid) 10 ml PO Q6H [facility] Last Admin: 11/17/23 04:42 Dose: 10 ml Documented By: CHER Comments: per pt request approved by Hydromorphone HCl (Hydromorphone Hcl 0.5 Mg/0.5 Ml Syringe) 0.25 mg IVPUSH Q4H PRN; Protocol PRN Reason: respiratory distress Last Admin: 11/17/23 05:28 Dose: 0.25 mg Documented By: CHER Ceftriaxone Sodium 1 gm/ (Sodium Chloride) 50 mls @ 100 mls/hr IV Q24H [facility] Last Infusion: 11/17/23 04:16 Dose: Infused Documented By: CHER Lorazepam (Lorazepam 1 Mg Tablet) 1 mg PO DAILY PRN PRN Reason: Anxiety Last Admin: 11/16/23 21:03 Dose: 1 mg Documented By: KURT Magnesium Hydroxide (Milk Of Magnesia 30 Ml Oral.Susp) 30 ml PO DAILY PRN PRN Reason: Constipation Methylprednisolone Sodium Succinate (Methylprednisolone Sod Succ 40 Mg/Ml Vial) 40 mg IVPUSH Q8H [facility] Last Admin: 11/17/23 08:53 Dose: 40 mg Documented By: JEANETTE Non-Formulary Medication (Tiotropium-Olodaterol [Stiolto Respimat]) 2 puff INHALE DAILY [facility] Non-Formulary Medication (Hyoscyamine Sulfate) 0.125 - 0.25 mg PO Q4-6H PRN PRN Reason: Abdominal Discomfort Ondansetron HCl (Ondansetron Hcl 4 Mg/2 Ml Vial) 4 mg IVPUSH Q8H PRN PRN Reason: Nausea and Vomiting Oxcarbazepine (Oxcarbazepine 300 Mg Tablet) 600 mg PO BID [facility] Last Admin: 11/17/23 05:10 Dose: 600 mg Documented By: CHER Comments: per pt request. approved Prazosin HCl (Prazosin Hcl 1 Mg Capsule) 2 mg PO BEDTIME [facility]; Protocol Last Admin: 11/16/23 21:02 Dose: 2 mg Documented By: KURT Sodium Chloride (0.9 % Sodium Chloride Flush 3 Ml Syringe) 3 ml IVFLUSH QSHIFT [facility] Last Admin: 11/17/23 08:54 Dose: 3 ml Documented By: JEANETTE Tiotropium [place] (Tiotropium [place] 2.5 Mcg 1 Puff/2.5 Mcg Mist.Inhal) 2 puff INHALE RDAILY [facility] Last Admin: 11/17/23 07:42 Dose: 2 puff Documented By: WILL Labs 11/16/23 04:38 11/16/23 04:38 Microbiology Microbiology Results: Microbiology 11/15/23 18:20 Blood Culture - Preliminary Blood - Venous No growth after 24 hours. 11/15/23 18:09 Blood Culture - Preliminary Blood - Venous No growth after 24 hours. Assessment and Plan (1) COPD exacerbation: Status: Acute (2) Acute and chronic respiratory failure with hypoxia: Status: Acute Plan 58-year-old female with history of hyperlipidemia, mood disorder, COPD with exercise hypoxemia and nocturnal hypoxemia, lacunar infarcts, PTSD, MVR, occipital neuralgia, tricuspid insufficiency, brain aneurysm, and right-sided sciatica admitted for COPD exacerbation with acute on chronic hypoxemic respiratory failure # COPD exacerbation with acute on chronic hypoxemic respiratory failure and respiratory distress, she was briefly in ICU for BiPAP use, overal better -continue iv steroid, bronchodilators by Neb, coough meds, pulmonology eval, BiPAP at night, O2 goal of sat 88-92% #Mood disorder/anxiety, Ativan PRN # elevated blood pressure, likely untreated HTN + the effect of steroid -start Norvasc 5 #Occipital/trigeminal neuralgia- following parotid gland mass -continue baclofen, gabapenin, vicadin #HLD -continue statin overweight -encouraged to lose weight ,cut down calories. dvt prophyalxis- lovenox full code need for inpt: acute copd exacerbation with severe bronchospasm needing bipap in icu and still needing iv steroid Quality Stroke Does the patient have a stroke diagnosis?: No VTE Prior VTE?: No VTE Risk Level:: Medical - moderate - high VTE Device Contraindication: Treatment Not Indicated VTE Drug Contraindication: N/A - Med Ordered
--- NOTE | 2023-11-17 12:19 | PM.CNPUL ---
History of Present Illness History of Present Illness Consult date: 11/17/23 Chief complaint: copd exacerbation, acute hypoxia Narrative: This is an inpatient pulmonary consultation. The patient is a 58-year-old female with history of mood disorder, COPD with exercise hypoxemia and nocturnal hypoxemia, lacunar infarcts, PTSD, MVR, occipital neuralgia, tricuspid insufficiency, brain aneurysm, and right-sided sciatica presented to the ED earlier today accompanied by her for evaluation of shortness of breath both at rest but worse with exertion ongoing for 4 days. She has also had productive cough with clear mucus production. No sick contacts. No fevers, chills, sore throat, congestion, abdominal pain, nausea, vomiting, diarrhea, lightheadedness, palpitations, or chest pain. She has been using her albuterol inhaler with increased frequency and decreased effectiveness. She had been smoking cigarettes up until 5 days ago and does not wish for any NRT. Since arrival, has been hypertensive to 182/86 and tachypneic. She uses 1 L of supplemental O2 with exertion at baseline and 2 L at bedtime now requiring 3 L supplemental O2 via OxyMask maintain oximetry 90-92%. No fevers. She has a mild leukocytosis of 11.0. Renal function normal, electrolyte levels normal except for sodium of 146. VBG reassuring with pH 7.38, pCO2 42, bicarb 26. The patient was initially admitted to the floor and she developed altered mental status myoclonus and was placed on BiPAP. She was briefly transfer to the ICU for rescue BiPAP. Her blood gas demonstrated acute respiratory failure. Could have been from opiates. The patient was able to be quickly transferred to the floor. She did have significant wheezing still. Although she is moving better air. She continues on the oxygen. She did tolerate the BiPAP. Initially there was issue with trigeminal neuralgia and her tolerating the face mask but she did tolerated with the head gear and is something that she may need in the future. Although right now her baseline CO2 seems to be within normal limits which is reassuring. Review of Systems Constitutional: Constitutional: Reports chills and Reports fatigue Cardiovascular: Cardiovascular: Reports dyspnea on exertion Respiratory: Respiratory: Reports cough, Reports dyspnea on exertion and Reports wheezing Gastrointestinal: Gastrointestinal: Reports no additional gastrointestinal complaints Genitourinary: Genitourinary: Reports no additional female genitourinary complaints Endocrine: Endocrine: Reports fatigue Allergic/Immunologic: Allergic/Immunologic: Reports wheezing [facility] Past Medical History Medical History (Updated 11/17/23 @ 12:25 by Denys Henriquez MD) Trigeminal neuralgia Pulmonary nodules COPD (chronic obstructive pulmonary disease) Mixed hyperlipidemia Peripheral neuropathy Tobacco use disorder Mood disorder Surgical History Surgical History History of esophagogastroduodenoscopy (EGD) History of colonoscopy History of lumbar discectomy History of tubal ligation History of excision of mass History of shoulder surgery Social History Social History Household Members: Spouse Housing: Condominium Do you presently have visiting nurse or other home services: No Alcohol intake: current Alcohol intake frequency: holidays/special occasions only Alcohol type: wine Patient Tobacco Use Status: Former Tobacco user Tobacco use type: Cigarette Cigarette Packs Per Day: 1 Cigarettes Per Day: 20.0 Smoked in Last 30 Days: Yes Patient Interested in Nicotine Replacement: No Use of substances other than those prescribed or required for medical reasons: Yes Substance Use Type: Marijuana Substance Use Frequency: Daily Last Used Substance: Days (ago) Currently Displaying Signs/Symptoms of Drug Intoxication Withdrawal: No Any prior treatment program specific to substance use: No Have you been hit, kicked, punched, or otherwise hurt by someone within the past year? If so, by whom?: No Do you feel safe in your current relationship?: Yes Is there a partner from a previous relationship who is making you feel unsafe now?: No Are you made to feel afraid or neglected: No Advance Directives: Yes Advance Directives on File: Yes Advance Directives Date on File: 03/09/23 Do you have a plan to hurt others: No Plan Recently lost weight without trying: No Eating poorly because of decreased appetite: Yes Nutrition Risks: No Nutritional Risk Patient : No service: No Meds Allergies Allergy/AdvReac Type Severity Reaction Status Date / Time Iodinated Contrast Media Allergy Intermediate HIVES Verified 11/15/23 12:45 [IV CONTRAST] acetaminophen [From VICODIN] Allergy Unknown VOMITING Verified 11/15/23 12:45 hydrocodone [From VICODIN] Allergy Unknown VOMITING Verified 11/15/23 12:45 latex [LATEX] Allergy Unknown RASH Verified 11/15/23 12:45 oxycodone [From PERCOCET] Allergy Unknown VOMITING Verified 11/15/23 12:45 procaine [From Novocain] Allergy Unknown HIVES Verified 11/15/23 12:45 morphine [MORPHINE] AdvReac Unknown VOMITING Verified 11/15/23 12:45 Active Medications: Current Medications Acetaminophen (Acetaminophen 325 Mg Tablet) 650 mg PO Q6H PRN PRN Reason: Pain, Mild (Pain Scale 1-3) Acetaminophen/Butalbital/Caffeine (Butalb/Acetamin/Caff 50/325/40 Tablet) 1 tab PO DAILY PRN PRN Reason: Headache Last Admin: 11/17/23 08:53 Dose: 1 tab Hydrocodone Bitart/Acetaminophen (Hydrocodone Bit/Acetam 7.5/325 Tablet) 1 tab PO Q4H PRN PRN Reason: Pain, Moderate(Pain Scale 4-6) Last Admin: 11/17/23 08:53 Dose: 1 tab Albuterol/Ipratropium (Albuterol/Iprat 2.5/0.5mg 3 Ml Ampul.Neb) 3 ml INHALE Q4H REPLACED BY [facility] Last Admin: 11/17/23 11:15 Dose: 3 ml Amlodipine Besylate (Amlodipine Besylate 10 Mg Tablet) 10 mg PO DAILY REPLACED BY [facility]; Protocol Atorvastatin Calcium (Atorvastatin Calcium 80 Mg Tablet) 80 mg PO BEDTIME REPLACED BY [facility] Last Admin: 11/16/23 21:03 Dose: 80 mg Baclofen (Baclofen 10 Mg Tablet) 10 mg PO TID PRN PRN Reason: Pain, Moderate(Pain Scale 4-6) Last Admin: 11/17/23 05:10 Dose: 10 mg Calcium Carbonate/Cholecalciferol (Calcium + Vitamin D 250 Mg Tablet) 500 mg PO DAILY REPLACED BY [facility] Last Admin: 11/17/23 08:53 Dose: 500 mg Duloxetine HCl (Duloxetine Hcl 60 Mg Capsule.Dr) 60 mg PO BID REPLACED BY [facility] Last Admin: 11/17/23 05:09 Dose: 60 mg Enoxaparin Sodium (Enoxaparin Sodium 40 Mg/0.4 Ml Syringe) 40 mg SUBCUT Q24H REPLACED BY [facility] Last Admin: 11/16/23 18:38 Dose: 40 mg Famotidine (Famotidine/Pf 20 Mg/2 Ml Vial) 20 mg IVPUSH DAILY REPLACED BY [facility] Last Admin: 11/17/23 08:54 Dose: 20 mg Gabapentin (Gabapentin 400 Mg Capsule) 1,200 mg PO TID REPLACED BY [facility] Last Admin: 11/17/23 05:09 Dose: 1,200 mg Guaifenesin (Guaifenesin 200 Mg/10 Ml 10 Ml Liquid) 10 ml PO Q6H REPLACED BY [facility] Last Admin: 11/17/23 10:50 Dose: 10 ml Hydromorphone HCl (Hydromorphone Hcl 0.5 Mg/0.5 Ml Syringe) 0.25 mg IVPUSH Q4H PRN; Protocol PRN Reason: respiratory distress Last Admin: 11/17/23 10:57 Dose: 0.25 mg Ceftriaxone Sodium 1 gm/ (Sodium Chloride) 50 mls @ 100 mls/hr IV Q24H REPLACED BY [facility] Last Infusion: 11/17/23 04:16 Dose: Infused Lorazepam (Lorazepam 1 Mg Tablet) 1 mg PO DAILY PRN PRN Reason: Anxiety Last Admin: 11/16/23 21:03 Dose: 1 mg Magnesium Hydroxide (Milk Of Magnesia 30 Ml Oral.Susp) 30 ml PO DAILY PRN PRN Reason: Constipation Methylprednisolone Sodium Succinate (Methylprednisolone Sod Succ 40 Mg/Ml Vial) 40 mg IVPUSH Q8H REPLACED BY [facility] Last Admin: 11/17/23 08:53 Dose: 40 mg Non-Formulary Medication (Tiotropium-Olodaterol [Stiolto Respimat]) 2 puff INHALE DAILY REPLACED BY [facility] Non-Formulary Medication (Hyoscyamine Sulfate) 0.125 - 0.25 mg PO Q4-6H PRN PRN Reason: Abdominal Discomfort Ondansetron HCl (Ondansetron Hcl 4 Mg/2 Ml Vial) 4 mg IVPUSH Q8H PRN PRN Reason: Nausea and Vomiting Oxcarbazepine (Oxcarbazepine 300 Mg Tablet) 600 mg PO BID REPLACED BY [facility] Last Admin: 11/17/23 05:10 Dose: 600 mg Prazosin HCl (Prazosin Hcl 1 Mg Capsule) 2 mg PO BEDTIME REPLACED BY [facility]; Protocol Last Admin: 11/16/23 21:02 Dose: 2 mg Sodium Chloride (0.9 % Sodium Chloride Flush 3 Ml Syringe) 3 ml IVFLUSH QSHIFT REPLACED BY [facility] Last Admin: 11/17/23 08:54 Dose: 3 ml Tiotropium [place] (Tiotropium [place] 2.5 Mcg 1 Puff/2.5 Mcg Mist.Inhal) 2 puff INHALE RDAILY REPLACED BY [facility] Last Admin: 11/17/23 07:42 Dose: 2 puff Home Medications ?Medication ?Instructions ?Recorded ?Confirmed ?Last Taken ?Type atorvastatin 80 mg tablet 80 mg PO BEDTIME 03/04/23 11/15/23 11/14/23 History baclofen 10 mg tablet 10 mg PO TID 03/04/23 11/15/23 11/15/23 History [id number] 1 tab PO DAILY PRN Headache 03/04/23 11/15/23 11/15/23 History 50 mg-325 mg-40 mg tablet duloxetine 60 mg capsule,delayed 60 mg PO BID 03/04/23 11/15/23 11/15/23 History release gabapentin 300 mg capsule 1,200 mg PO TID 03/04/23 11/15/23 11/15/23 History hydrocodone 5 mg-acetaminophen 325 1 tab PO DAILY PRN Pain 03/04/23 11/15/23 11/15/23 History mg tablet hyoscyamine sulfate 0.125 mg tablet 0.125 - 0.25 mg PO Q4-6H PRN 03/04/23 11/15/23 11/15/23 History Abdominal Discomfort lorazepam 1 mg tablet 1 mg PO DAILY PRN Anxiety 03/04/23 11/15/23 11/15/23 History oxcarbazepine 600 mg tablet 600 mg PO BID 03/04/23 11/15/23 11/15/23 History Oxygen Home Use 04/16/23 Unknown History prazosin 2 mg capsule 2 mg PO BEDTIME 04/16/23 11/15/23 11/14/23 History albuterol sulfate 90 mcg/actuation 2 inh inhalation Q4H PRN shortness 11/15/23 11/15/23 11/15/23 History aerosol inhaler of breath or wheezing calcium carbonate 600 mg-vitamin 1 tab PO DAILY 11/15/23 11/15/23 11/15/23 History D3 5 mcg (200 unit) tablet Physical Exam Vital Signs: Vital Signs: Last Vital Signs Temp 97.9 F 11/17/23 11:15 Pulse 94 11/17/23 11:30 Resp 20 11/17/23 11:30 BP 160/77 H 11/17/23 11:15 Pulse Ox 92 11/17/23 11:15 O2 Del Method Nasal Cannula 11/17/23 11:15 O2 Flow Rate 3 11/17/23 11:15 FiO2 24 11/16/23 08:00 Oxygen Flow Rate 3 11/15/23 12:40 BMI result Body Mass Index 33.8 Const: General: comfortable HEENT: Head: Yes normocephalic Neck: Neck: Yes supple Chest: Chest palpation & inspection: normal inspection of the chest Resp: Effort & Inspection: tachypneic and prolonged expiratory phase Auscultation: wheezes and diminished lung sounds Cardio: Heart sounds: S1 normal heart sound present and S2 normal heart sound present GI: Palpation (GI): Soft to palpation Skin: General skin exam: no rashes or lesions noted Extrem: General: Yes no clubbing, cyanosis or edema Results Laboratory Findings 11/16/23 04:38 11/16/23 04:38 Abnormal lab findings: Abnormal Labs 11/15/23 11/15/23 11/16/23 14:18 14:44 01:21 WBC 11.0 H Hgb 16.5 H Hct 48.8 H MPV 9.2 L Neut % (Auto) Lymph % (Auto) Eos % (Auto) 6.1 H Lymph # (Auto) Eos # (Auto) 0.7 H Abs Immat Gran (auto) Absolute Neuts (auto) ABG pH at Pt Temp 7.30 L ABG pCO2 at Pt Temp 50 H ABG pO2 at Pt Temp 69 L Sodium 146 H Carbon Dioxide 30 H BUN 7 L Random Glucose 129 H Calcium 10.3 H 11/16/23 04:38 WBC 13.8 H Hgb Hct MPV Neut % (Auto) 87.1 H Lymph % (Auto) 5.7 L Eos % (Auto) Lymph # (Auto) 0.8 L Eos # (Auto) Abs Immat Gran (auto) 0.04 H Absolute Neuts (auto) 12.0 H ABG pH at Pt Temp ABG pCO2 at Pt Temp ABG pO2 at Pt Temp Sodium Carbon Dioxide BUN Random Glucose 122 H Calcium Microbiology: Microbiology 11/15/23 18:20 Blood - Venous Blood Culture - Preliminary No growth after 24 hours. 11/15/23 18:09 Blood - Venous Blood Culture - Preliminary No growth after 24 hours. Assessment and Plan (1) COPD exacerbation: Status: Acute (2) Acute respiratory failure with hypercapnia: Status: Acute (3) Tobacco use disorder: Status: Acute (4) Pulmonary nodules: Status: Acute Plan Continue Solumedrol Continue Abx continue nebs q4 hours tobacco cessation repeat blood gas tomorrow continue BIPAP at night Procedures Date of Service Date of Service: 11/17/23
[2023-11-17] MEDS: Enoxaparin Sodium 40 MG/0.4 ML SYRINGE SUBCUT (17:10)
[2023-11-17] MEDS: Prazosin HCL 1 MG CAPSULE 2 MG PO (21:25)
[2023-11-17] MEDS: Atorvastatin Calcium 80 MG TABLET PO (21:25)
[2023-11-17] MEDS: LORazepam 1 MG TABLET PO (21:31)
[2023-11-18] VITALS (17 sets, daily range): BP systolic 131–182; BP diastolic 68–88; PULSE 71–109; RESP 12–36; TEMP 36.2–36.9; O2SAT 90–98
[2023-11-18] MEDS: Albuterol/Iprat 2.5/0.5MG 3 ML AMPUL.NEB INHALE ×6 (03:19→22:49)
[2023-11-18] MEDS: cefTRIAXone sodium 1 GM in 0.9 % Sodium Chloride 50 ML IV (05:40)
[2023-11-18] MEDS: methylPREDNISolone Sod Succ 40 MG/ML VIAL IVPUSH ×3 (05:40→17:19)
[2023-11-18] MEDS: Gabapentin 400 MG CAPSULE 1200 MG PO ×3 (06:14→21:15)
[2023-11-18] MEDS: DULoxetine HCl 60 MG CAPSULE.DR PO ×2 (06:14→21:16)
[2023-11-18] MEDS: OXcarbazepine 300 MG TABLET 600 MG PO ×2 (06:15→21:15)
[2023-11-18] MEDS: HYDROmorphone HCl 0.5 MG/0.5 ML SYRINGE 0.25 MG IVPUSH ×3 (06:15→21:38)
[2023-11-18] MEDS: Baclofen 10 MG TABLET PO ×3 (06:15→21:19)
[2023-11-18] MEDS: guaiFENesin 200 MG/10 ML 10 ML LIQUID PO ×3 (06:59→17:19)
[2023-11-18] MEDS: Tiotropium Bromide 2.5 mcg 1 PUFF/2.5 MCG MIST.INHAL 2 PUFF INHALE (07:30)
[2023-11-18 08:33] LABS: VBG Base Excess 5.9 mmol/L; VBG HCO3 29 mmol/L (22-26); VBG pCO2 39 mmHg; VBG pH 7.48 (7.32-7.43); VBG pO2 75 mmHg
[2023-11-18 08:33] LABS: Venous Blood Gas Refer to POC result
[2023-11-18] MEDS: Famotidine/PF 20 MG/2 ML VIAL IVPUSH (08:45)
[2023-11-18] MEDS: amLODIPine Besylate 10 MG TABLET PO (08:46)
[2023-11-18] MEDS: Calcium + Vitamin D 250 MG TABLET 500 MG PO (08:46)
[2023-11-18] MEDS: HYDROcodone Bit/Acetam 7.5/325 TABLET 1 TAB PO (08:46)
[2023-11-18] MEDS: 0.9 % Sodium Chloride Flush 3 ML SYRINGE IVFLUSH ×2 (08:47→21:16)
--- NOTE | 2023-11-18 10:11 | HO.PM.IMPN ---
Subjective Subjective Date of Service: 11/18/23 Interval History: f/u on copd exacerbation, acute hypoxic resp failure s/p rescue bipap in icu still wheezing, had a coughing fit while eating Physical Exam Vital Signs: Vital Signs: Last Vital Signs Temp 98.4 F 11/18/23 07:29 Pulse 91 11/18/23 07:35 Resp 18 11/18/23 07:35 BP 164/74 H 11/18/23 08:46 Pulse Ox 92 11/18/23 07:29 O2 Del Method Oxymask 11/18/23 07:29 O2 Flow Rate 2.5 11/18/23 07:29 FiO2 24 11/16/23 08:00 Oxygen Flow Rate 3 11/15/23 12:40 BMI result Body Mass Index 33.8 General: AO X 3, no acute distress Resp: diffuse wheeze, mild effort CVS: S1,S2,RRR GI: +BS, NT, no distention Skin: No rash Neuro: motor grossly intact Psych: appropriate affect Objective Data Active Medications Acetaminophen (Acetaminophen 325 Mg Tablet) 650 mg PO Q6H PRN PRN Reason: Pain, Mild (Pain Scale 1-3) Acetaminophen/Butalbital/Caffeine (Butalb/Acetamin/Caff 50/325/40 Tablet) 1 tab PO DAILY PRN PRN Reason: Headache Last Admin: 11/17/23 08:53 Dose: 1 tab Documented By: JEANETTE Hydrocodone Bitart/Acetaminophen (Hydrocodone Bit/Acetam 7.5/325 Tablet) 1 tab PO Q4H PRN PRN Reason: Pain, Moderate(Pain Scale 4-6) Last Admin: 11/18/23 08:46 Dose: 1 tab Documented By: JEANETTE Albuterol/Ipratropium (Albuterol/Iprat 2.5/0.5mg 3 Ml Ampul.Neb) 3 ml INHALE Q4H [facility] Last Admin: 11/18/23 05:30 Dose: 3 ml Documented By: CASSIDY Amlodipine Besylate (Amlodipine Besylate 10 Mg Tablet) 10 mg PO DAILY [facility]; Protocol Last Admin: 11/18/23 08:46 Dose: 10 mg Documented By: JEANETTE Atorvastatin Calcium (Atorvastatin Calcium 80 Mg Tablet) 80 mg PO BEDTIME [facility] Last Admin: 11/17/23 21:25 Dose: 80 mg Documented By: KURT Baclofen (Baclofen 10 Mg Tablet) 10 mg PO TID PRN PRN Reason: Pain, Moderate(Pain Scale 4-6) Last Admin: 11/18/23 06:15 Dose: 10 mg Documented By: KURT Calcium Carbonate/Cholecalciferol (Calcium + Vitamin D 250 Mg Tablet) 500 mg PO DAILY [facility] Last Admin: 11/18/23 08:46 Dose: 500 mg Documented By: JEANETTE Duloxetine HCl (Duloxetine Hcl 60 Mg Capsule.Dr) 60 mg PO BID [facility] Last Admin: 11/18/23 06:14 Dose: 60 mg Documented By: KURT Enoxaparin Sodium (Enoxaparin Sodium 40 Mg/0.4 Ml Syringe) 40 mg SUBCUT Q24H [facility] Last Admin: 11/17/23 17:10 Dose: 40 mg Documented By: JEANETTE Famotidine (Famotidine/Pf 20 Mg/2 Ml Vial) 20 mg IVPUSH DAILY [facility] Last Admin: 11/18/23 08:45 Dose: 20 mg Documented By: JEANETTE Gabapentin (Gabapentin 400 Mg Capsule) 1,200 mg PO TID [facility] Last Admin: 11/18/23 06:14 Dose: 1,200 mg Documented By: KURT Comments: Per MD Christina patient can have am meds early Guaifenesin (Guaifenesin 200 Mg/10 Ml 10 Ml Liquid) 10 ml PO Q6H [facility] Last Admin: 11/18/23 06:59 Dose: 10 ml Documented By: KURT Hydromorphone HCl (Hydromorphone Hcl 0.5 Mg/0.5 Ml Syringe) 0.25 mg IVPUSH Q4H PRN; Protocol PRN Reason: respiratory distress Last Admin: 11/18/23 06:15 Dose: 0.25 mg Documented By: KURT Ceftriaxone Sodium 1 gm/ (Sodium Chloride) 50 mls @ 100 mls/hr IV Q24H [facility] Last Infusion: 11/18/23 07:00 Dose: Infused Documented By: KURT Lorazepam (Lorazepam 1 Mg Tablet) 1 mg PO DAILY PRN PRN Reason: Anxiety Last Admin: 11/17/23 21:31 Dose: 1 mg Documented By: KURT Magnesium Hydroxide (Milk Of Magnesia 30 Ml Oral.Susp) 30 ml PO DAILY PRN PRN Reason: Constipation Methylprednisolone Sodium Succinate (Methylprednisolone Sod Succ 40 Mg/Ml Vial) 40 mg IVPUSH Q8H [facility] Last Admin: 11/18/23 08:45 Dose: 40 mg Documented By: JEANETTE Non-Formulary Medication (Tiotropium-Olodaterol [Stiolto Respimat]) 2 puff INHALE DAILY [facility] Non-Formulary Medication (Hyoscyamine Sulfate) 0.125 - 0.25 mg PO Q4-6H PRN PRN Reason: Abdominal Discomfort Ondansetron HCl (Ondansetron Hcl 4 Mg/2 Ml Vial) 4 mg IVPUSH Q8H PRN PRN Reason: Nausea and Vomiting Oxcarbazepine (Oxcarbazepine 300 Mg Tablet) 600 mg PO BID [facility] Last Admin: 11/18/23 06:15 Dose: 600 mg Documented By: KURT Comments: Per MD Christina patient can have am meds early Prazosin HCl (Prazosin Hcl 1 Mg Capsule) 2 mg PO BEDTIME [facility]; Protocol Last Admin: 11/17/23 21:25 Dose: 2 mg Documented By: KURT Sodium Chloride (0.9 % Sodium Chloride Flush 3 Ml Syringe) 3 ml IVFLUSH QSHIFT [facility] Last Admin: 11/18/23 08:47 Dose: 3 ml Documented By: JEANETTE Tiotropium [place] (Tiotropium [place] 2.5 Mcg 1 Puff/2.5 Mcg Mist.Inhal) 2 puff INHALE RDAILY [facility] Last Admin: 11/18/23 07:30 Dose: 2 puff Documented By: WILL Labs 11/16/23 04:38 11/16/23 04:38 Labs: Laboratory Results - last 24 hr 11/18/23 08:26 VBG pH 7.48 H VBG pCO2 39 VBG pO2 75 VBG HCO3 29 H VBG O2 Saturation 96.0 VBG Base Excess 5.9 Microbiology Microbiology Results: Microbiology 11/15/23 18:20 Blood Culture - Preliminary Blood - Venous No growth after 48 hours. 11/15/23 18:09 Blood Culture - Preliminary Blood - Venous No growth after 48 hours. Assessment and Plan (1) COPD exacerbation: Status: Acute (2) Acute and chronic respiratory failure with hypoxia: Status: Acute Plan 58-year-old female with history of hyperlipidemia, mood disorder, COPD with exercise hypoxemia and nocturnal hypoxemia, lacunar infarcts, PTSD, MVR, occipital neuralgia, tricuspid insufficiency, brain aneurysm, and right-sided sciatica admitted for COPD exacerbation with acute on chronic hypoxemic respiratory failure # COPD exacerbation with acute on chronic hypoxemic respiratory failure and respiratory, she was briefly in ICU for BiPAP use, overall better -continue iv steroid, bronchodilators by Neb, coough meds, pulmonology eval, BiPAP at night, O2 goal of sat 88-92%. Change to PO steroid tomorrow #Mood disorder/anxiety, Ativan PRN # elevated blood pressure, likely untreated HTN + the effect of steroid -start Norvasc 5, minipress #Occipital/trigeminal neuralgia- following parotid gland mass -continue baclofen, gabapenin, vicOdin #HLD -continue statin overweight -encouraged to lose weight ,cut down calories. dvt prophyalxis- lovenox full code need for inpt: acute copd exacerbation with severe bronchospasm needing bipap in icu and still needing iv steroid Quality Stroke Does the patient have a stroke diagnosis?: No VTE Prior VTE?: No VTE Risk Level:: Medical - moderate - high VTE Device Contraindication: Treatment Not Indicated VTE Drug Contraindication: N/A - Med Ordered
--- NOTE | 2023-11-18 13:05 | MHC.SL.SWA ---
Speech Pathologist Impression: Risk of aspiration, oropharyngeal dysphagia Risk of Aspiration Due to: Medically Fragile Dysphasia Diet Status: Downgrade to NDD3 Liquid Consistency and Strategies for Safe Swallow: Liquid Intake Recommendation: Thin Liquid Intake Strategies: Small Sips Solid Food Consistency: Dietary Recommendations: Chopped/Advanced (NDD3) Additional Modifications to Solid Foods: Patient with longstanding history of chronic dysphagia, had choking event at breakfast this morning. Pertinent history also includes lacunar infarcts, occipital neuralgia, brain aneurysm, COPD, and self-reported GERD. Patient reports coughing and choking on food and liquid multiple times a day for the past 30 years. She says she has had an MBSS in the past, but does not recall the results or recommendations. Recommend DOWNGRADE diet to CHOPPED/ADVANCED (NDD3) for ease of mastication, as patient reports jaw pain and difficulty getting hard solids down, THIN liquids via straw is patient's reference again due to jaw pain, with pills WHOLE or CRUSHED per patient's tolerance. Patient is recommended to hold bolus after sipping from straw then swallowing one sip at a time. Other precautions include: sitting upright during and for at least 30 minutes after PO intake d/t reported history of reflux, take small bites, chew food well, dry swallow between bites, alternate bites of food with sips of liquid. Oral Medication Intake: Whole with Liquid Please contact the pharmacy regarding appropriate crushable or liquid drug formulations that are available whenever modified delivery is recommended. Compensatory Strategies and Precautions to be Taken for Safe Swallow: Sitting Upright (90 deg) Double Swallow Small Bites and Sips Alternate Liquids/Solids Rate of Ingestion Change Avoid Specific Foods Supervision While Eating and Drinking for Safe Swallow: Total Supervision (1:1) Foods to Avoid: Mixed textures, hard tough to chew solids Swallowing Recommended Treatments: Compens. Strategy Educat. Recommendation for Speech: Inpatient Speech Therapy Modified Barium Swallow Study - Outpatient Comment: Patient would benefit from having an instrumental exam (MBSS) given her long standing history of dysphagia. She does mention having difficulty with transportation and requests this exam be done during her inpatient stay if possible. [facility] will continue to monitor at bedside. MBSS is recommended outpatient vs. inpatient depending on Radiology's availability. Frequency/Duration: Date Range for Service Req: Timeline to reassess: Substation Operator Apprentice Clinican/Clinical Fellow: No Supervisory Statement: I have reviewed and agree with the student/clinical fellow's documentation: N/A Speech Language Pathologist: Yanet Hinton M.A., [facility]
[2023-11-18] MEDS: Enoxaparin Sodium 40 MG/0.4 ML SYRINGE SUBCUT (17:19)
[2023-11-18] MEDS: Atorvastatin Calcium 80 MG TABLET PO (21:15)
[2023-11-18] MEDS: Prazosin HCL 1 MG CAPSULE 2 MG PO (21:15)
[2023-11-18] MEDS: LORazepam 1 MG TABLET PO (21:18)
[2023-11-19] VITALS (16 sets, daily range): BP systolic 149–181; BP diastolic 69–95; PULSE 69–105; RESP 18–22; TEMP 36.4–36.9; O2SAT 89–97; BMI 34.1
[2023-11-19] MEDS: guaiFENesin 200 MG/10 ML 10 ML LIQUID PO ×3 (01:32→18:08)
[2023-11-19] MEDS: Albuterol/Iprat 2.5/0.5MG 3 ML AMPUL.NEB INHALE ×5 (02:37→22:48)
[2023-11-19] MEDS: cefTRIAXone sodium 1 GM in 0.9 % Sodium Chloride 50 ML IV (04:01)
[2023-11-19] MEDS: methylPREDNISolone Sod Succ 40 MG/ML VIAL IVPUSH (04:01)
[2023-11-19] MEDS: HYDROmorphone HCl 0.5 MG/0.5 ML SYRINGE 0.25 MG IVPUSH ×3 (05:40→15:50)
[2023-11-19] MEDS: Tiotropium Bromide 2.5 mcg 1 PUFF/2.5 MCG MIST.INHAL 2 PUFF INHALE (07:23)
[2023-11-19] MEDS: OXcarbazepine 300 MG TABLET 600 MG PO ×2 (07:37→22:34)
[2023-11-19] MEDS: Calcium + Vitamin D 250 MG TABLET 500 MG PO (07:37)
[2023-11-19] MEDS: Baclofen 10 MG TABLET PO (07:37)
[2023-11-19] MEDS: Gabapentin 400 MG CAPSULE 1200 MG PO ×3 (07:37→22:33)
[2023-11-19] MEDS: amLODIPine Besylate 10 MG TABLET PO (07:38)
[2023-11-19] MEDS: DULoxetine HCl 60 MG CAPSULE.DR PO ×2 (07:38→22:37)
[2023-11-19] MEDS: Famotidine/PF 20 MG/2 ML VIAL IVPUSH (07:38)
[2023-11-19] MEDS: 0.9 % Sodium Chloride Flush 3 ML SYRINGE IVFLUSH ×3 (07:44→22:37)
--- NOTE | 2023-11-19 09:57 | HO.PM.IMPN ---
Subjective Subjective Date of Service: 11/20/23 Interval History: f/u on copd exacerbation, acute hypoxic resp failure s/p rescue bipap in icu still wheezing, had a coughing fit while eating Physical Exam Vital Signs: Vital Signs: Last Vital Signs Temp 98.5 F 11/19/23 07:20 Pulse 95 11/19/23 07:25 Resp 20 11/19/23 07:25 BP 176/82 H 11/19/23 07:38 Pulse Ox 89 L 11/19/23 07:20 O2 Del Method Oxymask 11/19/23 07:20 O2 Flow Rate 3 11/19/23 07:20 FiO2 24 11/16/23 08:00 Oxygen Flow Rate 3 11/15/23 12:40 BMI result Body Mass Index 34.1 General: AO X 3, no acute distress Resp: diffuse wheeze, mild effort CVS: S1,S2,RRR GI: +BS, NT, no distention Skin: No rash Neuro: motor grossly intact Psych: appropriate affect Objective Data Active Medications Acetaminophen (Acetaminophen 325 Mg Tablet) 650 mg PO Q6H PRN PRN Reason: Pain, Mild (Pain Scale 1-3) Acetaminophen/Butalbital/Caffeine (Butalb/Acetamin/Caff 50/325/40 Tablet) 1 tab PO DAILY PRN PRN Reason: Headache Last Admin: 11/17/23 08:53 Dose: 1 tab Documented By: JEANETTE Hydrocodone Bitart/Acetaminophen (Hydrocodone Bit/Acetam 7.5/325 Tablet) 1 tab PO Q4H PRN PRN Reason: Pain, Moderate(Pain Scale 4-6) Last Admin: 11/18/23 08:46 Dose: 1 tab Documented By: JEANETTE Albuterol/Ipratropium (Albuterol/Iprat 2.5/0.5mg 3 Ml Ampul.Neb) 3 ml INHALE Q4H [facility] Last Admin: 11/19/23 05:36 Dose: Not Given Documented By: CASSIDY Non-Admin Reason: Patient Refused Amlodipine Besylate (Amlodipine Besylate 10 Mg Tablet) 10 mg PO DAILY [facility]; Protocol Last Admin: 11/19/23 07:38 Dose: 10 mg Documented By: SHARON Atorvastatin Calcium (Atorvastatin Calcium 80 Mg Tablet) 80 mg PO BEDTIME [facility] Last Admin: 11/18/23 21:15 Dose: 80 mg Documented By: KURT Baclofen (Baclofen 10 Mg Tablet) 10 mg PO TID PRN PRN Reason: Pain, Moderate(Pain Scale 4-6) Last Admin: 11/19/23 07:37 Dose: 10 mg Documented By: SHARON Calcium Carbonate/Cholecalciferol (Calcium + Vitamin D 250 Mg Tablet) 500 mg PO DAILY [facility] Last Admin: 11/19/23 07:37 Dose: 500 mg Documented By: SHARON Duloxetine HCl (Duloxetine Hcl 60 Mg Capsule.Dr) 60 mg PO BID [facility] Last Admin: 11/19/23 07:38 Dose: 60 mg Documented By: SHARON Enoxaparin Sodium (Enoxaparin Sodium 40 Mg/0.4 Ml Syringe) 40 mg SUBCUT Q24H [facility] Last Admin: 11/18/23 17:19 Dose: 40 mg Documented By: SOFFARandi Famotidine (Famotidine/Pf 20 Mg/2 Ml Vial) 20 mg IVPUSH DAILY [facility] Last Admin: 11/19/23 07:38 Dose: 20 mg Documented By: SHARON Gabapentin (Gabapentin 400 Mg Capsule) 1,200 mg PO TID [facility] Last Admin: 11/19/23 07:37 Dose: 1,200 mg Documented By: SHARON Guaifenesin (Guaifenesin 200 Mg/10 Ml 10 Ml Liquid) 10 ml PO Q6H [facility] Last Admin: 11/19/23 05:40 Dose: 10 ml Documented By: KURT Hydromorphone HCl (Hydromorphone Hcl 0.5 Mg/0.5 Ml Syringe) 0.25 mg IVPUSH Q4H PRN; Protocol PRN Reason: respiratory distress Last Admin: 11/19/23 07:33 Dose: 0.25 mg Documented By: SHARON Ceftriaxone Sodium 1 gm/ (Sodium Chloride) 50 mls @ 100 mls/hr IV Q24H [facility] Last Infusion: 11/19/23 04:57 Dose: Infused Documented By: KURT Lorazepam (Lorazepam 1 Mg Tablet) 1 mg PO DAILY PRN PRN Reason: Anxiety Last Admin: 11/18/23 21:18 Dose: 1 mg Documented By: KURT Magnesium Hydroxide (Milk Of Magnesia 30 Ml Oral.Susp) 30 ml PO DAILY PRN PRN Reason: Constipation Non-Formulary Medication (Tiotropium-Olodaterol [Stiolto Respimat]) 2 puff INHALE DAILY [facility] Non-Formulary Medication (Hyoscyamine Sulfate) 0.125 - 0.25 mg PO Q4-6H PRN PRN Reason: Abdominal Discomfort Ondansetron HCl (Ondansetron Hcl 4 Mg/2 Ml Vial) 4 mg IVPUSH Q8H PRN PRN Reason: Nausea and Vomiting Oxcarbazepine (Oxcarbazepine 300 Mg Tablet) 600 mg PO BID [facility] Last Admin: 11/19/23 07:37 Dose: 600 mg Documented By: SHARON Prazosin HCl (Prazosin Hcl 1 Mg Capsule) 2 mg PO BEDTIME [facility]; Protocol Last Admin: 11/18/23 21:15 Dose: 2 mg Documented By: KURT Prednisone (Prednisone 20 Mg Tablet) 40 mg PO DAILY [facility] Sodium Chloride (0.9 % Sodium Chloride Flush 3 Ml Syringe) 3 ml IVFLUSH QSHIFT [facility] Last Admin: 11/19/23 07:44 Dose: 3 ml Documented By: SHARON Tiotropium [place] (Tiotropium [place] 2.5 Mcg 1 Puff/2.5 Mcg Mist.Inhal) 2 puff INHALE RDAILY [facility] Last Admin: 11/19/23 07:23 Dose: 2 puff Documented By: WILL Labs 11/16/23 04:38 11/16/23 04:38 Assessment and Plan (1) COPD exacerbation: Status: Acute (2) Acute and chronic respiratory failure with hypoxia: Status: Acute Plan 58-year-old female with history of hyperlipidemia, mood disorder, COPD with exercise hypoxemia and nocturnal hypoxemia, lacunar infarcts, PTSD, MVR, occipital neuralgia, tricuspid insufficiency, brain aneurysm, and right-sided sciatica admitted for COPD exacerbation with acute on chronic hypoxemic respiratory failure # COPD exacerbation with acute on chronic hypoxemic respiratory failure and respiratory, she was briefly in ICU for BiPAP use, overall better -change to PO steroid today, bronchodilators by Neb, coough meds, pulmonology eval, doesn't qualify for BiPAP at home, O2 goal of sat 88-92%. #Mood disorder/anxiety, Ativan PRN # elevated blood pressure, likely untreated HTN + the effect of steroid -continue norvasc, minipress, consider adding Lasix #Occipital/trigeminal neuralgia- following parotid gland mass -continue baclofen, gabapenin, vicOdin #HLD -continue statin overweight -encouraged to lose weight ,cut down calories. dvt prophyalxis- lovenox full code need for inpt: acute copd exacerbation with severe bronchospasm needing bipap in icu and still needing iv steroid Quality Stroke Does the patient have a stroke diagnosis?: No VTE Prior VTE?: No VTE Risk Level:: Medical - moderate - high VTE Device Contraindication: Treatment Not Indicated VTE Drug Contraindication: N/A - Med Ordered
--- NOTE | 2023-11-19 10:35 | MHC.CM.PN ---
Per ROUNDS discussion, Patient may benefit from a PT eval to assist with disposition. CM will follow.
[2023-11-19] MEDS: HYDROcodone Bit/Acetam 7.5/325 TABLET 1 TAB PO ×2 (10:53→18:08)
[2023-11-19] MEDS: predniSONE 20 MG TABLET 40 MG PO (10:54)
--- NOTE | 2023-11-19 12:54 | MHC.SL.SWA ---
Risk of Aspiration Due to: Medically Fragile Dysphasia Diet Status: No change Liquid Consistency and Strategies for Safe Swallow: Liquid Intake Recommendation: Thin Liquid Intake Strategies: Small Sips Solid Food Consistency: Dietary Recommendations: Chopped/Advanced (NDD3) Oral Medication Intake: Whole with Liquid Please contact the pharmacy regarding appropriate crushable or liquid drug formulations that are available whenever modified delivery is recommended. Compensatory Strategies and Precautions to be Taken for Safe Swallow: Sitting Upright (90 deg) Double Swallow Small Bites and Sips Alternate Liquids/Solids Rate of Ingestion Change Avoid Specific Foods Supervision While Eating and Drinking for Safe Swallow: Intermittent Supervision Foods to Avoid: Mixed textures, hard tough to chew solids Swallowing Recommended Treatments: Compens. Strategy Educat. Recommendation for Speech: Inpatient Speech Therapy Modified Barium Swallow Study - Outpatient Comment: Patient with longstanding history of chronic dysphagia, had choking event at breakfast this morning. Pertinent history also includes lacunar infarcts, occipital neuralgia, brain aneurysm, COPD, and self-reported GERD. Patient reports coughing and choking on food and liquid multiple times a day for the past 30 years. She says she has had an MBSS in the past, but does not recall the results or recommendations. Recommend patient continue w/ CHOPPED/ADVANCED (NDD3) for ease of mastication, as patient reports jaw pain and difficulty getting hard solids down, THIN liquids via straw is patient's reference again due to jaw pain, with pills WHOLE or CRUSHED per patient's tolerance. Patient is recommended to hold bolus after sipping from straw then swallowing one sip at a time. Other precautions include: sitting upright during and for at least 30 minutes after PO intake d/t reported history of reflux, take small bites, chew food well, dry swallow between bites, alternate bites of food with sips of liquid. Patient would benefit from having an instrumental exam (MBSS) given her long standing history of dysphagia. She does mention having difficulty with transportation and requests this exam be done during her inpatient stay if possible. RECYCLING COORDINATOR will continue to monitor at bedside. MBSS is recommended outpatient vs. inpatient depending on Radiology's availability. Recommend barium tablet be assessed w/ MBSS. End Stapler Clinican/Clinical Fellow: No Supervisory Statement: I have reviewed and agree with the student/clinical fellow's documentation: N/A Speech Language Pathologist: Liyah Mclaughlin M.A., [facility]-RECYCLING COORDINATOR
[2023-11-19] MEDS: Enoxaparin Sodium 40 MG/0.4 ML SYRINGE SUBCUT (18:08)
[2023-11-19] MEDS: Atorvastatin Calcium 80 MG TABLET PO (22:33)
[2023-11-19] MEDS: LORazepam 1 MG TABLET PO (22:34)
[2023-11-19] MEDS: Prazosin HCL 1 MG CAPSULE 2 MG PO (22:35)
[2023-11-20] VITALS (14 sets, daily range): BP systolic 136–167; BP diastolic 67–83; PULSE 67–87; RESP 16–24; TEMP 35.7–36.9; O2SAT 90–95; BMI 34.8
[2023-11-20] MEDS: guaiFENesin 200 MG/10 ML 10 ML LIQUID PO ×3 (01:07→17:40)
[2023-11-20] MEDS: HYDROcodone Bit/Acetam 7.5/325 TABLET 1 TAB PO ×3 (01:12→20:42)
[2023-11-20] MEDS: Albuterol/Iprat 2.5/0.5MG 3 ML AMPUL.NEB INHALE ×5 (03:09→19:03)
[2023-11-20] MEDS: cefTRIAXone sodium 1 GM in 0.9 % Sodium Chloride 50 ML IV (03:38)
[2023-11-20] MEDS: HYDROmorphone HCl 0.5 MG/0.5 ML SYRINGE 0.25 MG IVPUSH (04:29)
[2023-11-20] MEDS: Tiotropium Bromide 2.5 mcg 1 PUFF/2.5 MCG MIST.INHAL 2 PUFF INHALE (08:02)
[2023-11-20] MEDS: Gabapentin 400 MG CAPSULE 1200 MG PO ×3 (09:41→20:41)
[2023-11-20] MEDS: predniSONE 20 MG TABLET 40 MG PO (09:42)
[2023-11-20] MEDS: DULoxetine HCl 60 MG CAPSULE.DR PO ×2 (09:42→20:41)
[2023-11-20] MEDS: OXcarbazepine 300 MG TABLET 600 MG PO ×2 (09:42→20:41)
[2023-11-20] MEDS: amLODIPine Besylate 10 MG TABLET PO (09:42)
[2023-11-20] MEDS: Famotidine/PF 20 MG/2 ML VIAL IVPUSH (09:42)
[2023-11-20] MEDS: 0.9 % Sodium Chloride Flush 3 ML SYRINGE IVFLUSH ×3 (09:43→20:43)
[2023-11-20] MEDS: Calcium + Vitamin D 250 MG TABLET 500 MG PO (09:43)
--- NOTE | 2023-11-20 11:37 | P.PNIM_ITS ---
Subjective Subjective Date of Service: 11/20/23 Interval History: f/u on copd exacerbation, acute hypoxic resp failure s/p rescue bipap in icu Overall better, Physical Exam 2 Vital Signs: Vital Signs: Last Vital Signs Temp 97.1 F 11/20/23 08:00 Pulse 87 11/20/23 08:09 Resp 20 11/20/23 08:09 BP 159/71 H 11/20/23 08:00 Pulse Ox 94 11/20/23 08:00 O2 Del Method Nasal Cannula, Ox ymask 11/20/23 08:00 O2 Flow Rate 2 11/20/23 08:00 FiO2 24 11/20/23 00:00 Oxygen Flow Rate 3 11/15/23 12:40 BMI result Body Mass Index 34.8 General: AO X 3, no acute distress Resp: faint wheeze, no accessory muscle use CVS: S1,S2,RRR GI: +BS, NT, no distention Skin: No rash Neuro: motor grossly intact Psych: appropriate affect Objective Data Active Medications Acetaminophen (Acetaminophen 325 Mg Tablet) 650 mg PO Q6H PRN PRN Reason: Pain, Mild (Pain Scale 1-3) Acetaminophen/Butalbital/Caffeine (Butalb/Acetamin/Caff 50/325/40 Tablet) 1 tab PO DAILY PRN PRN Reason: Headache Last Admin: 11/17/23 08:53 Dose: 1 tab Documented By: JEANETTE Hydrocodone Bitart/Acetaminophen (Hydrocodone Bit/Acetam 7.5/325 Tablet) 1 tab PO Q4H PRN PRN Reason: Pain, Severe (Pain Scale 7-10) Albuterol/Ipratropium (Albuterol/Iprat 2.5/0.5mg 3 Ml Ampul.Neb) 3 ml INHALE Q4H [facility] Last Admin: 11/20/23 11:35 Dose: 3 ml Documented By: MARYLU Amlodipine Besylate (Amlodipine Besylate 10 Mg Tablet) 10 mg PO DAILY [facility]; Protocol Last Admin: 11/20/23 09:42 Dose: 10 mg Documented By: SHAHZAD Atorvastatin Calcium (Atorvastatin Calcium 80 Mg Tablet) 80 mg PO BEDTIME [facility] Last Admin: 11/19/23 22:33 Dose: 80 mg Documented By: EMRE Baclofen (Baclofen 10 Mg Tablet) 10 mg PO TID PRN PRN Reason: Pain, Moderate(Pain Scale 4-6) Last Admin: 11/19/23 07:37 Dose: 10 mg Documented By: SHARON Calcium Carbonate/Cholecalciferol (Calcium + Vitamin D 250 Mg Tablet) 500 mg PO DAILY [facility] Last Admin: 11/20/23 09:43 Dose: 500 mg Documented By: SHAHZAD Duloxetine HCl (Duloxetine Hcl 60 Mg Capsule.Dr) 60 mg PO BID [facility] Last Admin: 11/20/23 09:42 Dose: 60 mg Documented By: SHAHZAD Enoxaparin Sodium (Enoxaparin Sodium 40 Mg/0.4 Ml Syringe) 40 mg SUBCUT Q24H [facility] Last Admin: 11/19/23 18:08 Dose: 40 mg Documented By: SHARON Famotidine (Famotidine/Pf 20 Mg/2 Ml Vial) 20 mg IVPUSH DAILY [facility] Last Admin: 11/20/23 09:42 Dose: 20 mg Documented By: SHAHZAD Gabapentin (Gabapentin 400 Mg Capsule) 1,200 mg PO TID [facility] Last Admin: 11/20/23 09:41 Dose: 1,200 mg Documented By: SHAHZAD Guaifenesin (Guaifenesin 200 Mg/10 Ml 10 Ml Liquid) 10 ml PO Q6H [facility] Last Admin: 11/20/23 07:52 Dose: Not Given Documented By: EMRE Non-Admin Reason: Patient Refused Ceftriaxone Sodium 1 gm/ (Sodium Chloride) 50 mls @ 100 mls/hr IV Q24H [facility] Last Infusion: 11/20/23 04:52 Dose: Infused Documented By: EMRE Lorazepam (Lorazepam 1 Mg Tablet) 1 mg PO DAILY PRN PRN Reason: Anxiety Last Admin: 11/19/23 22:34 Dose: 1 mg Documented By: EMRE Magnesium Hydroxide (Milk Of Magnesia 30 Ml Oral.Susp) 30 ml PO DAILY PRN PRN Reason: Constipation Non-Formulary Medication (Tiotropium-Olodaterol [Stiolto Respimat]) 2 puff INHALE DAILY [facility] Non-Formulary Medication (Hyoscyamine Sulfate) 0.125 - 0.25 mg PO Q4-6H PRN PRN Reason: Abdominal Discomfort Ondansetron HCl (Ondansetron Hcl 4 Mg/2 Ml Vial) 4 mg IVPUSH Q8H PRN PRN Reason: Nausea and Vomiting Oxcarbazepine (Oxcarbazepine 300 Mg Tablet) 600 mg PO BID [facility] Last Admin: 11/20/23 09:42 Dose: 600 mg Documented By: SHAHZAD Prazosin HCl (Prazosin Hcl 1 Mg Capsule) 2 mg PO BEDTIME [facility]; Protocol Last Admin: 11/19/23 22:35 Dose: 2 mg Documented By: RIZWANATRJam Prednisone (Prednisone 20 Mg Tablet) 40 mg PO DAILY [facility] Last Admin: 11/20/23 09:42 Dose: 40 mg Documented By: SHAHZAD Sodium Chloride (0.9 % Sodium Chloride Flush 3 Ml Syringe) 3 ml IVFLUSH QSHIFT [facility] Last Admin: 11/20/23 09:43 Dose: 3 ml Documented By: SHAHZAD Tiotropium [place] (Tiotropium [place] 2.5 Mcg 1 Puff/2.5 Mcg Mist.Inhal) 2 puff INHALE RDAILY [facility] Last Admin: 11/20/23 08:02 Dose: 2 puff Documented By: MARYLU Labs 11/16/23 04:38 11/16/23 04:38 Assessment and Plan (1) COPD exacerbation: Status: Acute (2) Acute and chronic respiratory failure with hypoxia: Status: Acute Plan 58-year-old female with history of hyperlipidemia, mood disorder, COPD with exercise hypoxemia and nocturnal hypoxemia, lacunar infarcts, PTSD, MVR, occipital neuralgia, tricuspid insufficiency, brain aneurysm, and right-sided sciatica admitted for COPD exacerbation with acute on chronic hypoxemic respiratory failure # COPD exacerbation with acute on chronic hypoxemic respiratory failure and respiratory, she was briefly in ICU for BiPAP use, overall better - PO steroid patrice, bronchodilators by Neb, coough meds, pulmonology eval, doesn't qualify for BiPAP at home per pulmonology, O2 goal of sat 88-92%. #Mood disorder/anxiety, Ativan PRN # Elevated blood pressure, likely untreated HTN + the effect of steroid -continue norvasc, minipress, consider adding Lasix #Occipital/trigeminal neuralgia- following parotid gland mass -continue baclofen, gabapenin, vicOdin #HLD -continue statin overweight -encouraged to lose weight ,cut down calories. dvt prophyalxis- lovenox full code need for inpt: acute copd exacerbation with severe bronchospasm needing bipap in icu and still needing iv steroid PT is recommending STR and is agreable Quality Stroke Does the patient have a stroke diagnosis?: No VTE Prior VTE?: No VTE Risk Level:: Medical - moderate - high VTE Device Contraindication: Treatment Not Indicated VTE Drug Contraindication: N/A - Med Ordered
[2023-11-20] MEDS: Furosemide 20 MG TABLET PO (13:07)
[2023-11-20] MEDS: Baclofen 10 MG TABLET PO (15:16)
[2023-11-20] MEDS: Enoxaparin Sodium 40 MG/0.4 ML SYRINGE SUBCUT (17:40)
[2023-11-20] MEDS: Prazosin HCL 1 MG CAPSULE 2 MG PO (20:40)
[2023-11-20] MEDS: Atorvastatin Calcium 80 MG TABLET PO (20:41)
[2023-11-21] VITALS (10 sets, daily range): BP systolic 139–156; BP diastolic 62–82; PULSE 63–80; RESP 18–20; TEMP 36–37; O2SAT 92–97; BMI 34.7
[2023-11-21] MEDS: Baclofen 10 MG TABLET PO ×3 (00:19→22:46)
[2023-11-21] MEDS: guaiFENesin 200 MG/10 ML 10 ML LIQUID PO ×4 (00:19→20:20)
[2023-11-21] MEDS: cefTRIAXone sodium 1 GM in 0.9 % Sodium Chloride 50 ML IV (03:54)
[2023-11-21] MEDS: HYDROcodone Bit/Acetam 7.5/325 TABLET 1 TAB PO ×4 (06:50→20:34)
[2023-11-21] MEDS: Tiotropium Bromide 2.5 mcg 1 PUFF/2.5 MCG MIST.INHAL 2 PUFF INHALE (08:34)
[2023-11-21] MEDS: Albuterol/Iprat 2.5/0.5MG 3 ML AMPUL.NEB INHALE ×4 (08:34→20:15)
[2023-11-21] MEDS: Calcium + Vitamin D 250 MG TABLET 500 MG PO (09:04)
[2023-11-21] MEDS: Furosemide 20 MG TABLET PO (09:04)
[2023-11-21] MEDS: predniSONE 20 MG TABLET 40 MG PO (09:05)
[2023-11-21] MEDS: Gabapentin 400 MG CAPSULE 1200 MG PO ×3 (09:05→20:20)
[2023-11-21] MEDS: amLODIPine Besylate 10 MG TABLET PO (09:06)
[2023-11-21] MEDS: OXcarbazepine 300 MG TABLET 600 MG PO ×2 (09:07→20:21)
[2023-11-21] MEDS: Famotidine/PF 20 MG/2 ML VIAL IVPUSH (09:08)
[2023-11-21] MEDS: 0.9 % Sodium Chloride Flush 3 ML SYRINGE IVFLUSH ×2 (09:09→17:09)
--- NOTE | 2023-11-21 10:44 | HO.PM.IMPN ---
Subjective Subjective Date of Service: 11/21/23 Interval History: f/u on copd exacerbation, acute hypoxic resp failure s/p rescue bipap in icu Overall better, her lung sounds the best today, slept well Physical Exam Vital Signs: Vital Signs: Last Vital Signs Temp 97.8 F 11/21/23 08:00 Pulse 63 11/21/23 08:36 Resp 18 11/21/23 08:36 BP 152/80 H 11/21/23 08:00 Pulse Ox 92 11/21/23 08:00 O2 Del Method Oxymask 11/21/23 08:00 O2 Flow Rate 2 11/21/23 08:00 FiO2 24 11/20/23 00:00 Oxygen Flow Rate 3 11/15/23 12:40 BMI result Body Mass Index 34.7 General: AO X 3, no acute distress Resp: no wheezing, no accessory muscle use CVS: S1,S2,RRR GI: +BS, NT, no distention Skin: No rash Neuro: motor grossly intact Psych: appropriate affect Objective Data Active Medications Acetaminophen (Acetaminophen 325 Mg Tablet) 650 mg PO Q6H PRN PRN Reason: Pain, Mild (Pain Scale 1-3) Acetaminophen/Butalbital/Caffeine (Butalb/Acetamin/Caff 50/325/40 Tablet) 1 tab PO DAILY PRN PRN Reason: Headache Last Admin: 11/17/23 08:53 Dose: 1 tab Documented By: JEANETTE Hydrocodone Bitart/Acetaminophen (Hydrocodone Bit/Acetam 7.5/325 Tablet) 1 tab PO Q4H PRN PRN Reason: Pain, Severe (Pain Scale 7-10) Last Admin: 11/21/23 06:50 Dose: 1 tab Documented By: EMRE Albuterol/Ipratropium (Albuterol/Iprat 2.5/0.5mg 3 Ml Ampul.Neb) 3 ml INHALE Q4H [facility] Last Admin: 11/21/23 08:34 Dose: 3 ml Documented By: MARYLU Amlodipine Besylate (Amlodipine Besylate 10 Mg Tablet) 10 mg PO DAILY [facility]; Protocol Last Admin: 11/21/23 09:06 Dose: 10 mg Documented By: BEAR Atorvastatin Calcium (Atorvastatin Calcium 80 Mg Tablet) 80 mg PO BEDTIME [facility] Last Admin: 11/20/23 20:41 Dose: 80 mg Documented By: EMRE Baclofen (Baclofen 10 Mg Tablet) 10 mg PO TID PRN PRN Reason: Pain, Moderate(Pain Scale 4-6) Last Admin: 11/21/23 00:19 Dose: 10 mg Documented By: EMRE Calcium Carbonate/Cholecalciferol (Calcium + Vitamin D 250 Mg Tablet) 500 mg PO DAILY [facility] Last Admin: 11/21/23 09:04 Dose: 500 mg Documented By: BEAR Duloxetine HCl (Duloxetine Hcl 60 Mg Capsule.Dr) 60 mg PO BID [facility] Last Admin: 11/20/23 20:41 Dose: 60 mg Documented By: EMRE Enoxaparin Sodium (Enoxaparin Sodium 40 Mg/0.4 Ml Syringe) 40 mg SUBCUT Q24H [facility] Last Admin: 11/20/23 17:40 Dose: 40 mg Documented By: BEAR Famotidine (Famotidine/Pf 20 Mg/2 Ml Vial) 20 mg IVPUSH DAILY [facility] Last Admin: 11/21/23 09:08 Dose: 20 mg Documented By: BEAR Furosemide (Furosemide 20 Mg Tablet) 20 mg PO DAILY [facility]; Protocol Last Admin: 11/21/23 09:04 Dose: 20 mg Documented By: BEAR Gabapentin (Gabapentin 400 Mg Capsule) 1,200 mg PO TID [facility] Last Admin: 11/21/23 09:05 Dose: 1,200 mg Documented By: BEAR Guaifenesin (Guaifenesin 200 Mg/10 Ml 10 Ml Liquid) 10 ml PO Q6H [facility] Last Admin: 11/21/23 06:55 Dose: 10 ml Documented By: EMRE Ceftriaxone Sodium 1 gm/ (Sodium Chloride) 50 mls @ 100 mls/hr IV Q24H [facility] Last Admin: 11/21/23 03:54 Dose: 100 mls/hr Documented By: EMRE Magnesium Hydroxide (Milk Of Magnesia 30 Ml Oral.Susp) 30 ml PO DAILY PRN PRN Reason: Constipation Ondansetron HCl (Ondansetron Hcl 4 Mg/2 Ml Vial) 4 mg IVPUSH Q8H PRN PRN Reason: Nausea and Vomiting Oxcarbazepine (Oxcarbazepine 300 Mg Tablet) 600 mg PO BID [facility] Last Admin: 11/21/23 09:07 Dose: 600 mg Documented By: BEAR Prazosin HCl (Prazosin Hcl 1 Mg Capsule) 2 mg PO BEDTIME [facility]; Protocol Last Admin: 11/20/23 20:40 Dose: 2 mg Documented By: EMRE Prednisone (Prednisone 20 Mg Tablet) 40 mg PO DAILY [facility] Last Admin: 11/21/23 09:05 Dose: 40 mg Documented By: BEAR Sodium Chloride (0.9 % Sodium Chloride Flush 3 Ml Syringe) 3 ml IVFLUSH QSHIFT [facility] Last Admin: 11/21/23 09:09 Dose: 3 ml Documented By: BEAR Tiotropium [place] (Tiotropium [place] 2.5 Mcg 1 Puff/2.5 Mcg Mist.Inhal) 2 puff INHALE RDAILY [facility] Last Admin: 11/21/23 08:34 Dose: 2 puff Documented By: ADRIANNE Labs 11/16/23 04:38 11/16/23 04:38 Microbiology Microbiology Results: Microbiology 11/15/23 18:20 Blood Culture - Final Blood - Venous No growth after 5 days. 11/15/23 18:09 Blood Culture - Final Blood - Venous No growth after 5 days. Assessment and Plan (1) COPD exacerbation: Status: Acute (2) Acute and chronic respiratory failure with hypoxia: Status: Acute Plan 58-year-old female with history of hyperlipidemia, mood disorder, COPD with exercise hypoxemia and nocturnal hypoxemia, lacunar infarcts, PTSD, MVR, occipital neuralgia, tricuspid insufficiency, brain aneurysm, and right-sided sciatica admitted for COPD exacerbation with acute on chronic hypoxemic respiratory failure # COPD exacerbation with acute on chronic hypoxemic respiratory failure and respiratory, she was briefly in ICU for BiPAP use, overall better - PO steroid patrice, bronchodilators by Neb, coough meds, pulmonology eval, doesn't qualify for BiPAP at home per pulmonology, O2 goal of sat 88-92%. #Mood disorder/anxiety, Ativan PRN #HTN, continue minipress, norvasc and lasix #Occipital/trigeminal neuralgia- following parotid gland mass -continue baclofen, gabapenin, vicOdin #HLD -continue statin overweight -encouraged to lose weight ,cut down calories. dvt prophyalxis- lovenox full code need for inpt: acute copd exacerbation with severe bronchospasm needing bipap in icu and still needing iv steroid PT is recommending STR and is agreable vs home with service, she's leaning to going home Quality Stroke Does the patient have a stroke diagnosis?: No VTE Prior VTE?: No VTE Risk Level:: Medical - moderate - high VTE Device Contraindication: Treatment Not Indicated VTE Drug Contraindication: N/A - Med Ordered
[2023-11-21] MEDS: DULoxetine HCl 60 MG CAPSULE.DR PO ×2 (11:10→20:20)
[2023-11-21] MEDS: Enoxaparin Sodium 40 MG/0.4 ML SYRINGE SUBCUT (17:10)
[2023-11-21] MEDS: Atorvastatin Calcium 80 MG TABLET PO (20:20)
[2023-11-21] MEDS: Prazosin HCL 1 MG CAPSULE 2 MG PO (20:21)
[2023-11-22] VITALS (9 sets, daily range): BP systolic 130–142; BP diastolic 52–74; PULSE 77–96; RESP 18–20; TEMP 36.3–37.1; O2SAT 91–96; BMI 36.6
[2023-11-22] MEDS: 0.9 % Sodium Chloride Flush 3 ML SYRINGE IVFLUSH ×3 (00:44→15:40)
[2023-11-22] MEDS: cefTRIAXone sodium 1 GM in 0.9 % Sodium Chloride 50 ML IV (03:33)
[2023-11-22] MEDS: HYDROcodone Bit/Acetam 7.5/325 TABLET 1 TAB PO ×3 (04:13→13:02)
[2023-11-22] MEDS: Tiotropium Bromide 2.5 mcg 1 PUFF/2.5 MCG MIST.INHAL 2 PUFF INHALE (07:47)
[2023-11-22] MEDS: Albuterol/Iprat 2.5/0.5MG 3 ML AMPUL.NEB INHALE ×2 (07:47→11:45)
[2023-11-22] MEDS: OXcarbazepine 300 MG TABLET 600 MG PO (08:48)
[2023-11-22] MEDS: Baclofen 10 MG TABLET PO ×2 (08:49→15:40)
[2023-11-22] MEDS: Furosemide 20 MG TABLET PO (08:50)
[2023-11-22] MEDS: Gabapentin 400 MG CAPSULE 1200 MG PO ×2 (08:51→15:40)
[2023-11-22] MEDS: DULoxetine HCl 60 MG CAPSULE.DR PO (08:52)
[2023-11-22] MEDS: Calcium + Vitamin D 250 MG TABLET 500 MG PO (08:53)
--- NOTE | 2023-11-22 08:53 | MHC.CM.PN ---
PLAN IS FOR MODIFIED BARIUM SWALLOW TODAY. CASE MANAGEMENT FOLLOWING [facility] UPDATED.
[2023-11-22] MEDS: amLODIPine Besylate 10 MG TABLET PO (08:54)
[2023-11-22] MEDS: Famotidine/PF 20 MG/2 ML VIAL IVPUSH (08:54)
[2023-11-22] MEDS: predniSONE 20 MG TABLET 40 MG PO (08:55)
--- NOTE | 2023-11-22 09:18 | MHC.SLORD ---
Speech Language Pathology Order Status: MBSS is scheduled for 2:45pm today. Radiology will arrange for transport. MD notified via [place] Message.
--- NOTE | 2023-11-22 11:45 | MHC.CM.PN ---
Addendum entered by Rosario Boogie RN 11/22/23 13:52: PT PREBOOKED FOR 6:30PM TRANSPORT VIA [facility] AWARE THEY WILL NEED TO CANCEL IF PT DOES NOT DC. Original Note: PATIENT IS ADAMANT THAT SHE IS GOING HOME AND NOT TO SNF. SHE IS AWARE THAT REFERRAL IS PLACED TO [facility], DC PLAN IS HOME OR REHAB PATIENT IS SCHEDULE FOR 14:30 BARIUM SWALLOW AND THEN PLAN FOR DC. SHE WILL NEED TRANSPORT HOME. SHE REPORTS WE DO NOT HAVE A CAR . SHE ALSO ASKS FOR RN AND P.T. SKILLS IN THE HOME. REFERRAL PLACED TO [facility] TO INQUIRE. RN AWARE
--- NOTE | 2023-11-22 12:28 | P.DS_ITS ---
DS: Providers Provider Date of Service: 11/22/23 Date of admission: 11/15/23 17:31 Primary care physician: ESTEBAN Christianson Consults: 11/17/23 09:21 Consult to Pulmonology Routine Consulting Provider: [facility] [place], [place] Pulmonology Services Reason for consultation: copd exacerbation Has provider been notified: No DS: Diagnosis Discharge Diagnosis (1) COPD exacerbation: Status: Acute (2) Acute and chronic respiratory failure with hypoxia: Status: Acute DS: Summary Hospital Course Hospital Course: admission hpi cc: sob 58-year-old female with history of hyperlipidemia, mood disorder, COPD with exercise hypoxemia and nocturnal hypoxemia, lacunar infarcts, PTSD, MVR, occipital neuralgia, tricuspid insufficiency, brain aneurysm, and right-sided sciatica presented to the ED earlier today accompanied by her for evaluation of shortness of breath both at rest but worse with exertion ongoing for 4 days. She has also had productive cough with clear mucus production. No sick contacts. No fevers, chills, sore throat, congestion, abdominal pain, nausea, vomiting, diarrhea, lightheadedness, palpitations, or chest pain. She has been using her albuterol inhaler with increased frequency and decreased effectiveness. She had been smoking cigarettes up until 5 days ago and does not wish for any NRT. Since arrival, has been hypertensive to 182/86 and tachypneic. She uses 1 L of supplemental O2 with exertion at baseline and 2 L at bedtime now requiring 3 L supplemental O2 via OxyMask maintain oximetry 90- 92%. No fevers. She has a mild leukocytosis of 11.0. Renal function normal, electrolyte levels normal except for sodium of 146. VBG reassuring with pH 7.38, pCO2 42, bicarb 26. Chest x-ray negative for any acute abnormality. In the ED, has received 125 mg IV methylprednisolone, baclofen, gabapentin, multiple nebulizer treatments and DuoNeb but remains in respiratory distress with significant wheezing. She was given 0.5 mg of hydromorphone with good improvement in work of breathing. She will be admitted for further management of COPD exacerbation with acute hypoxemic respiratory failure. Hospital course: 58-year-old female with oxygen-dependent COPD PD presented to hospital with shortness of breath and was noted to have acute exacerbation of COPD, upon admission, she decompensated and was transferred to the ICU where she required use of BiPAP and improved rapidly and was transferred back to the medical floor the following day. Her management consisted of IV steroid, bronchodilator by nebulizer. She was seen in consultation by feller buncher operator to help with her management, over the course of hospitalization she has significantly improved and overall doing much better, her lungs are clear without any further wheezes. She will be transitioned to oral prednisone taper, and to continue use of oxygen as previously directed. To follow-up with her primary care physician upon discharge and to follow-up with her feller buncher operator. She is advised to cease smoking. Patient of while in the hospital with some difficulty with swallowing namely coughing while eating she was evaluated by speech and recommended for modified barium swallow which showed Time Attestation Discharge Coordination Time (in mins): 45 Quality: Safe Use of Opioids Does Pt have an Active Cancer Diagnosis on the Problem List?: No Quality: Stroke Does the patient have a stroke diagnosis?: No Physical Exam Vital Signs: Vital Signs: Last Vital Signs Temp 97.7 F 11/22/23 12:00 Pulse 85 11/22/23 12:00 Resp 20 11/22/23 12:00 BP 142/72 H 11/22/23 12:00 Pulse Ox 92 11/22/23 12:00 O2 Del Method Room Air 11/22/23 12:00 O2 Flow Rate 1 11/22/23 08:00 FiO2 24 11/20/23 00:00 Oxygen Flow Rate 3 11/15/23 12:40 BMI result Body Mass Index 36.6 General: AO X 3, no acute distress Resp: CTA bilateral CVS: S1,S2,RRR GI: +BS, NT, no distention Skin: No rash Neuro: motor grossly intact Psych: appropriate affect Discharge Plan Discharge Anticipated Discharge Date/Time: 11/22/23 12:20 Patient Disposition: Home, Self-Care Discharge Diagnosis: Acute on chronic hypoxic respiratory failure, copd exacerbation Referrals: Sirisha Huertas FNP-BC [Primary Care Provider] - 1 Week Discharge Medications: New prednisone 10 mg tablet 10 mg PO DIRECTED Qty: 20 0RF Rx Instructions: see taper instructions; 40 mg Daily x3 days, 30 mg daily x3 days, 20 mg daily x3 days, 10 mg daily x3 days Continued atorvastatin 80 mg tablet 80 mg PO BEDTIME hydrocodone-acetaminophen 5-325 mg tablet 1 tab PO DAILY PRN (Reason: Pain) pskxuzzkwo-ndlqodcaludoq-efke 50-325-40 mg tablet 1 tab PO DAILY PRN (Reason: Headache) baclofen 10 mg tablet 10 mg PO TID hyoscyamine sulfate 0.125 mg tablet 0.125 - 0.25 mg PO Q4-6H PRN (Reason: Abdominal Discomfort) gabapentin 300 mg capsule 1,200 mg PO TID oxcarbazepine 600 mg tablet 600 mg PO BID lorazepam 1 mg tablet 1 mg PO DAILY PRN (Reason: Anxiety) duloxetine 60 mg capsule,delayed release(DR/EC) 60 mg PO BID calcium carbonate-vitamin D3 [Calcium + D] 600 mg-5 mcg (200 unit) Tablet 1 tab PO DAILY albuterol sulfate 90 mcg/actuation HFA aerosol inhaler 2 inh inhalation Q4H PRN (Reason: shortness of breath or wheezing) prazosin 2 mg capsule 2 mg PO BEDTIME (DME) Oxygen Home Use Kit See Rx Instructions .ROUTE Rx Instructions: As directed Stiolto Respimat 2.5-2.5 mcg/actuation mist 2 puff inhalation DAILY 30 Days Qty: 4 11RF Discharge Orders: Discharge Order (Routine); Ordered 11/22/23 Ordered By: Judah Hu Diet: Advance to usual diet Activity on Discharge: As tolerated Stand Alone Forms: Patient Portal Discharge page Print Language: Portuguese Care Plan Goals: recovery from acute hypoxic respiratory failure related to copd exacerbation, prevent rehospitalization and maintain a comfortable breathing Health Concerns: chronic respiratory failure, copd, tobacco Plan of Treatment: continue inhalers as before use oxygen as directed take predinsone as directed follow up with your Doctor in a week, call for appointment follow up with your lung doctr, call for appointment Assessment: see above
--- NOTE | 2023-11-22 14:18 | P.F2F_ITS ---
Service Date Service Date: 11/22/23 Encounter Date of encounter: 11/22/23 Reasons for Services Signs and symptoms assessed: shortness of breath with minimal effort Reason for intermediate: medication management and teach disease management Reason for physical therapy: home safety and mobility, therapeutic exercises and energy conservation Homebound: Leaving the home is medically contraindicated at this time without the asist of a device and/or another person due th the listed conditions above and below. Reason homebound: shortness of breath with minimal effort Homebound supporting statement: homebound due to shortness of breath with minimal effort and hterefore needs the assitance of another person Certification: Based on the above findings, I certify that this patient is confined to the home and needs intermittent intermediate care, physical therapy and/or speech therapy, or continues to need occupational therapy. The patient is under my care, and I have initiated the establishment of the plan of care. The patient will be followed by a physician who will periodically review the plan of care. Time Spent With Patient Time: Total time managing care of this patient today ____ minutes.
--- NOTE | 2023-11-22 18:54 | MHC.SL.IMP ---
Date of Plan of Treatment: 11/22/23 Onset of Symptoms/Illness: 11/17/93 Date Treatment Started: 11/18/23 Admitting Diagnosis: COPD exacerbation, acute and chronic respiratory failure with hypoxia Primary Speech & Language Diagnosis: R13.14 Pharyngoesophageal Phase Dysphagia Reason for Today's Visit: 14402 Modified Barium Swallow Study Pre-evaluation Dietary Consistencies: Chopped/Advanced (NDD3) Pre-evaluation Liquid Consistency: Thin Pre-evaluation Medication Administration: Whole with Liquid Medical History: Modified Barium Swallow Study Fluoroscopic Evaluation of Swallowing Function CPT Code 84821 Evaluation Year: 2023 Reason for Study: Pt reporting difficulty swallowing. Referring Physician: Judah Hu MD Evaluating Clinician: Yanet Hinton MA, CCC-PURCHASING BUYER Study Number: 1 Patient Name: Zulma Alves Status: Inpatient, Wheelchair Age: 58 Gender: Female Medical History Medical History (Updated 11/15/23 @ 15:41 by Nba Nuno MD) Pulmonary nodules COPD (chronic obstructive pulmonary disease) Mixed hyperlipidemia Peripheral neuropathy Tobacco use disorder Mood disorder Surgical History (Updated 04/16/23 @ 13:33 by Nuha Palacio PA-C) History of esophagogastroduodenoscopy (EGD) History of colonoscopy History of lumbar discectomy History of tubal ligation History of excision of mass History of shoulder surgery Current (pre-evaluation) Intake/Diet: Route: PO Diet Grade: Chopped/Advanced per PURCHASING BUYER recommendation 11/18/23 Liquid Consistencies: Thin Pre-Study Functional Oral Intake Scale (FOIS): 5- Total oral intake of multiple consistencies requiring special preparation Pain: None reported at time of study SUBJECTIVE: Patient is a 58 year old female admitted for COPD exacerbation with acute on chronic hypoxemic respiratory failure. Patient was referred to PURCHASING BUYER after she choked with her breakfast and reported chronic difficulties swallowing dating back 30 years. Patient complained of coughing during meals, experiencing globus sensation intermittently, and ?needing to swallow a few times to get food down.? She reports exacerbating GERD, TMJ, and history of trigeminal neuralgia. Patient says that her mother also had trouble swallowing and was diagnosed with Bowen's esophagus. Patient was started on a chopped/advanced diet and was recommended further evaluation with an MBSS. Food and Liquid Trials: Oral Impairment: Lip Closure: Did not test Oral Impairment: Tongue Control During Bolus Hold: Did not test Oral Impairment: Bolus Preparation/Mastication: 0=Timely and efficient chewing and mashing Oral Impairment: Bolus Transport/Lingual Motion: 1= Delayed initiation of tongue motion Oral Impairment: Oral Residue: 2=Residue collection on oral structures Oral Impairment:Initiation of Pharyngeal Swallow: 3=Bolus head in pyriforms Pharyngeal Impairment: Soft Palate Elevation: 0=No bolus between soft palate (SP)/pharyngeal wall (PW) Pharyngeal Impairment: Laryngeal Elevation: 0=Complete superior movement of thyroid cartilage (see description) Pharyngeal Impairment: Anterior Hyoid Excursion: 0=Complete anterior movement Pharyngeal Impairment: Epiglottic Movement: 0=Complete inversion Pharyngeal Impairment: Laryngeal Vestibular Closure:: 0=Complete: no air/contrast in laryngeal vestibule Pharyngeal Impairment: Pharyngeal Stripping Wave: 0=Present: complete Pharyngeal Impairment: Pharyngeal Contraction: Did not test Pharyngeal Impairment: Pharyngoesophageal Segment Openin=Complete distension and complete duration: no obstruction of flow Pharyngeal Impairment: Tongue Base (TB) Retraction: 1=Trace column of contrast/air between TB and posterior PW Pharyngeal Impairment: Pharyngeal Residue: 1=Trace residue within or on pharyngeal structures Pharyngeal Impairment: Esophageal Clearance Upright Position: Did not test Impressions and Recommendations OBJECTIVE: Time-out: performed at 15:15 Evaluation Start: 15:00; Stop: 15:05 Patient Positioning: Standing Viewing Planes: LAT & AP Contrast: MBSImP? Standardized Protocol using commercially prepared, standardized Barium viscosities, including: Varibar? THIN LIQUID (40% w/v, <15 cps) , 1/2 Shortbread Cookie (1 x1 x.25 ) MBSImP ID: [id number] MBSImP Results: Lip closure for intraoral bolus containment could not be assessed due to logistical reasons not related to physiologic impairment. Tongue control during bolus hold could not be assessed due to logistical reasons not related to physiologic impairment. Bolus preparation and mastication resulted in timely and efficient chewing and mashing. Bolus transport/lingual motion demonstrated delayed initiation of tongue motion. Oral residue was a collection on oral structures. Initiation of the pharyngeal swallow occurred when the bolus head was in the pyriform sinuses. Soft palate elevation resulted in no bolus between the soft palate and the pharyngeal wall. Laryngeal elevation demonstrated complete superior movement of the thyroid cartilage with complete approximation of the arytenoids to the epiglottic petiole. Anterior hyoid excursion demonstrated complete anterior movement. Epiglottic movement resulted in complete inversion. Laryngeal vestibular closure was complete, as indicated by no air or contrast within the laryngeal vestibule at the height of the swallow. Pharyngeal stripping wave was present and complete. Pharyngeal contraction could not be determined due to logistical reasons not related to physiologic impairment. Pharyngoesophageal segment opening was completely distended for complete duration with no obstruction of bolus flow. Tongue base retraction allowed a trace column of contrast or air between the retracted tongue base and the posterior pharyngeal wall. Pharyngeal residue was a trace within or on pharyngeal structures. Esophageal clearance in the upright position could not be assessed due to logistical reasons not related to physiologic impairment. Oral Impairment Score: 6 (absence of score, component 1component 2) Pharyngeal Impairment Score: 0 (absence of score, component 13) Esophageal Impairment Score: --- (absence of score, component 17) Laryngeal Penetration and Aspiration: Neither penetration nor aspiration was observed in today's study with Cookie, Puree, Thin. ASSESSMENT: This exam was conducted by the speech pathologist and the radiologist. Patient was standing for lateral view. She fed herself, trialing Thin, Puree, and Regular solid consistencies. Note good oral containment, no anterior spilling noted clinically, though this was not captured with imaging. Mastication was timely and efficient. Delayed AP transport and delayed pharyngeal swallow trigger. Post-swallow, there was mild residue coating the tongue, which cleared with dry swallows. No nasopharyngeal reflux. Complete laryngeal elevation and complete laryngeal vestibular closure. No evidence of aspiration or penetration during this exam. There was trace reside on the base of tongue and in the valleculae, which cleared with dry swallows or liquid wash. Patient did complain of persistent globus sensation, though imaging showed residuals had been cleared. When swallowing barium pill tablet with water, patient held pill in mouth as she drank cup of water. With second cup of water, patient was able to swallow the tablet, visualized tablet passing through the oral and pharyngeal cavities, then getting stuck at the GE junction. Patient with belching after the exam. Liquid Intake Recommendation: Thin Liquid Intake Strategies: Small Sips Dietary Recommendations: Regular Medication Administration: Crushed with Puree Please contact the pharmacy regarding appropriate crushable or liquid drug formulations that are available whenever modified delivery is recommended. Compensatory Strategies Recommended: Sitting Upright (90 deg), Double Swallow, Small Bites and Sips, Alternate Liquids/Solids, Rate of Ingestion Change. Avoid Specific Foods Supervision during eating and or drinking: Total Supervision (1:1) Recommended Treatments: Compens. Strategy Educat. Recommendation for Speech Therapy: Inpatient Speech Therapy Intake Recommendations: Route: PO Diet Grade: Regular Liquid Consistencies: Thin Post-Study Functional Oral Intake Scale (FOIS): 6- Total oral intake with no special preparation, but must avoid specific foods or liquid items No evidence of aspiration during this exam. There was good oral and pharyngeal clearance. Barium pill did not pass through GE junction. Patient also burping after the exam and complaining of persistent globus sensation. Patient?s symptoms appear to be consistent with esophageal etiology and patient would benefit from consultation with Gastroenterology. Recommend a regular texture diet and thin liquids with behavioral strategies: take small bites, chew food finely, alternate bites with sips of liquid, remain upright during PO intake and for at least 30 minutes afterwards. Suggested Referrals: The patient might benefit from a referral to: Gastroenterology Indication for Referral: Barium pill not passing GE junction, symptoms including belching and globus sensation Therapy Recommendations: Patient will be seen for follow-up with PURCHASING BUYER at bedside for continued education in regards to MBSS findings and recommendations. Frequency/Duration: 1 follow-up Date Range for Service Requested: Timeline to reassess: Clinician - Supplemental, Miscellaneous Communication: It is important to note MBSS objective studies are snapshots in time and Patient function might vary with factors such as time of day or concomitant medical conditions. For this reason, the final treatment plan for this patient should rest with their medical care team. Additional recommendations should be considered with the totality of the Patient in mind. Thank for the opportunity to participate in the care of this patient. If you have any questions about the content of this report, please contact the [facility] at [facility]. Education: Education regarding findings from today's study and plans for therapy were provided to Patient only through Verbal Instruction. Understanding was expressed by the Patient only. Mold Stripper Clinician/Clinical Fellow: No Supervisory Statement: N/A Speech Language Pathologist: Yanet Hinton M.A., [facility]3]-PURCHASING BUYER
== END 2023-11-22 19:05 | disposition home or self-care (01) | DRG 140 ==
LOC: HO.ED 15:41 → HO.EDOVER 17:48 → HO.ICU 11-16 06:54 → HO.IMC 11-16 13:48
PROVIDERS: Hospitalist; Student in an Organized Health Care Education/Training Program; Admitting Provider Physician Assistant; Emergency Provider Emergency Medicine; PCP Registered Nurse; Visit Provider Internal Medicine
DX: J44.1 Chronic obstructive pulmonary disease with (acute) exacerbation (principal); J96.21 Acute and chronic respiratory failure with hypoxia; E87.0 Hyperosmolality and hypernatremia; J96.22 Acute and chronic respiratory failure with hypercapnia; Z99.81 Dependence on supplemental oxygen; E86.1 Hypovolemia; E86.0 Dehydration; J98.01 Acute bronchospasm; F43.10 Post-traumatic stress disorder, unspecified; F41.9 Anxiety disorder, unspecified; E66.3 Overweight; I10 Essential (primary) hypertension; Z68.36 Body mass index [BMI] 36.0-36.9, adult; Z71.3 Dietary counseling and surveillance; G50.0 Trigeminal neuralgia; M54.81 Occipital neuralgia; E78.2 Mixed hyperlipidemia; Z87.891 Personal history of nicotine dependence; Z91.040 Latex allergy status; Z91.041 Radiographic dye allergy status; Z20.822 Contact with and (suspected) exposure to COVID-19; Z79.899 Other long term (current) drug therapy
CPT/HCPCS: 36415; 36600; 71045; 71046; 74230; 80048; 82803; 83880; 85025; 87040; 87633; 92610; 92611; 92950; 93005; 94640; 94660; 97116; 97162; 99285; J0456; J0696; J1170; J1650; J1920; J2919

== ENCOUNTER → 2023-11-15 13:29 | Outpatient (BNV) | payer BC, SELFPAY | PROVIDERS: Emergency Provider Emergency Medicine; PCP Registered Nurse; Visit Provider Internal Medicine Cardiovascular Disease | DX: R94.31 Abnormal electrocardiogram [ECG] [EKG] (principal) | CPT/HCPCS: 93010 ==

== ENCOUNTER 2023-11-15 17:31 | Outpatient (BNV) | payer BC, SELFPAY | END 2023-11-22 14:30 | PROVIDERS: Admitting Provider Physician Assistant; Emergency Provider Emergency Medicine; PCP Registered Nurse; Visit Provider Physician Assistant Surgical | DX: R13.10 Dysphagia, unspecified (principal) | CPT/HCPCS: 74230 ==

== ENCOUNTER → 2023-11-15 17:31 | Outpatient (BNV) | payer BC, SELFPAY | PROVIDERS: Admitting Provider Physician Assistant; Emergency Provider Emergency Medicine; PCP Registered Nurse; Visit Provider Physician Assistant | DX: J96.21 Acute and chronic respiratory failure with hypoxia (principal); J44.1 Chronic obstructive pulmonary disease with (acute) exacerbation | CPT/HCPCS: 99223; 99232; 99239; 99499; G0180 ==

== ENCOUNTER → 2023-11-15 17:31 | Outpatient (BNV) | payer BC, SELFPAY | PROVIDERS: Admitting Provider Physician Assistant; Emergency Provider Emergency Medicine; PCP Registered Nurse; Visit Provider Internal Medicine Critical Care Medicine | DX: J96.01 Acute respiratory failure with hypoxia (principal); J96.02 Acute respiratory failure with hypercapnia; J44.1 Chronic obstructive pulmonary disease with (acute) exacerbation | CPT/HCPCS: 99231; 99291 ==

== ENCOUNTER → 2023-11-15 17:31 | Outpatient (BNV) | payer BC, SELFPAY | PROVIDERS: Admitting Provider Physician Assistant; Emergency Provider Emergency Medicine; PCP Registered Nurse; Visit Provider Hospitalist | DX: J44.1 Chronic obstructive pulmonary disease with (acute) exacerbation (principal); J96.02 Acute respiratory failure with hypercapnia; F17.200 Nicotine dependence, unspecified, uncomplicated; R91.8 Other nonspecific abnormal finding of lung field | CPT/HCPCS: 99223 ==

== ENCOUNTER 2023-12-09 21:43 | Inpatient (IN) | payer BC, MEDICARE, SELFPAY ==
--- NOTE | 2023-12-09 | ECG_ITS ---
Test Reason : CHEST PAIN Blood Pressure : / mmHG Vent. Rate : 109 BPM Atrial Rate : 109 BPM P-R Int : 142 ms QRS Dur : 084 ms QT Int : 328 ms P-R-T Axes : 074 078 -02 degrees QTc Int : 441 ms Baseline wander Sinus tachycardia Nonspecific ST and T wave abnormality Abnormal ECG When compared with ECG of 15-NOV-2023 13:50, Nonspecific T wave abnormality now evident in Lateral leads QT has lengthened Referred By: Generic ED Physician Electronically Signed By:HARRIET ANDRES MD
--- NOTE | ~2023-12-09 | XR_ITS ---
EXAMINATION: XR CHEST CLINICAL INFORMATION: Dyspnea COMPARISON: 11/16/2023 TECHNIQUE: Frontal view of the chest was obtained. FINDINGS: Lungs are clear. No consolidation, pneumothorax, or pleural effusion. Cardiac and mediastinal contours are normal. Pulmonary vasculature is unremarkable. Degenerative disc disease in the thoracic spine. XR/XR chest 1V IMPRESSION: No acute pulmonary findings.
[2023-12-09 21:54] VITALS: BP 160/90; BP 217/79; PULSE 110; PULSE 117; RESP 24; TEMP 36.6; O2SAT 96; O2SAT 99; BMI 27.8
--- NOTE | 2023-12-09 22:08 | ED_ITS ---
HPI - SOB/Dyspnea General Chief Complaint: Dyspnea Stated Complaint: DIFF BREATHING Time Seen by Provider: 12/09/23 22:02 Source: patient and EMS Mode of arrival: EMS Limitations: no limitations History of Present Illness ED Provider: DR. Lopez HPI Narrative: 58-year-old female with history of HLD, mood disorder, COPD use supplemental oxygen at home, lacunar infarction, PTSD, MVR, occipital neuralgia, active smoker came in for difficulty breathing patient was admitted to the ICU 3 weeks ago for acute on chronic respiratory failure patient needed BiPAP machine then patient presented today by EMS for 1 day of shortness a breath in the ED patient in severe acute respiratory distress unable to speak in full sentence due to respiratory distress. No fever, no chills. Related Data Home Medications ?Medication ?Instructions ?Recorded ?Confirmed atorvastatin 80 mg tablet 80 mg PO BEDTIME 03/04/23 12/10/23 baclofen 10 mg tablet 10 mg PO TID 03/04/23 12/10/23 [id number]-[id number]-[id number] 1 tab PO DAILY PRN Headache 03/04/23 12/10/23 50 mg-325 mg-40 mg tablet duloxetine 60 mg capsule,delayed 60 mg PO BID 03/04/23 12/10/23 release gabapentin 300 mg capsule 1,200 mg PO TID 03/04/23 12/10/23 hydrocodone 5 mg-acetaminophen 325 1 tab PO DAILY PRN Pain 03/04/23 12/10/23 mg tablet hyoscyamine sulfate 0.125 mg tablet 0.125 - 0.25 mg PO Q4-6H PRN 03/04/23 12/10/23 Abdominal Discomfort lorazepam 1 mg tablet 1 mg PO DAILY PRN Anxiety 03/04/23 12/10/23 oxcarbazepine 600 mg tablet 600 mg PO BID 03/04/23 12/10/23 Oxygen Home Use 04/16/23 prazosin 2 mg capsule 2 mg PO BEDTIME 04/16/23 12/10/23 albuterol sulfate 90 mcg/actuation 2 inh inhalation Q4H PRN shortness 11/15/23 12/10/23 aerosol inhaler of breath or wheezing calcium carbonate 600 mg-vitamin 1 tab PO DAILY 11/15/23 12/10/23 D3 5 mcg (200 unit) tablet Previous Rx's ?Medication ?Instructions ?Recorded tiotropium 2.5 mcg-olodaterol 2.5 2 puff inhalation DAILY 30 days #4 04/16/23 mcg/actuation mist for inhalation grams (Stiolto Respimat) prednisone 10 mg tablet 10 mg PO DIRECTED #20 tabs 11/22/23 Allergies Allergy/AdvReac Type Severity Reaction Status Date / Time Iodinated Contrast Media Allergy Intermediate HIVES Verified 12/09/23 22:00 [IV CONTRAST] acetaminophen [From VICODIN] Allergy Unknown VOMITING Verified 12/09/23 22:00 hydrocodone [From VICODIN] Allergy Unknown VOMITING Verified 12/09/23 22:00 latex [LATEX] Allergy Unknown RASH Verified 12/09/23 22:00 oxycodone [From PERCOCET] Allergy Unknown VOMITING Verified 12/09/23 22:00 procaine [From Novocain] Allergy Unknown HIVES Verified 12/09/23 22:00 morphine [MORPHINE] AdvReac Unknown VOMITING Verified 12/09/23 22:00 Review of Systems 2 Review of Systems: All other systems are reviewed and are negative Constitutional: Reports as per HPI and Reports no additional constitutional complaints Eyes: Reports as per HPI and Reports no additional eye complaints Reports system reviewed and no additional complaints, except as documented Cardiovascular: Reports as per HPI and Reports no additional cardiovascular complaints Respiratory: Reports as per HPI and Reports no additional respiratory complaints Gastrointestinal: Reports as per HPI and Reports no additional gastrointestinal complaints Genitourinary: Reports no additional female genitourinary complaints Musculoskeletal: Reports no additional musculoskeletal complaints Skin/Breast: Reports system reviewed and no additional complaints, except as docu Psychiatric: Reports no additional psychiatric complaints Endocrine: Reports no additional endocrine complaints Hematologic/Lymphatic: Reports no additional hematologic/lymphatic complaints Allergic/Immunologic: Reports no additional allergic/immunologic complaints Reports system reviewed and no additional complaints, except as documented and Reports Abnormal speech present COUNTS INCLUDE 234 BEDS AT THE [facility] Past Medical History Medical History Trigeminal neuralgia Pulmonary nodules COPD (chronic obstructive pulmonary disease) Mixed hyperlipidemia Peripheral neuropathy Tobacco use disorder Mood disorder Surgical History History of esophagogastroduodenoscopy (EGD) History of colonoscopy History of lumbar discectomy History of tubal ligation History of excision of mass History of shoulder surgery Social History Social History Household Members: Spouse [facility] Do you presently have visiting nurse or other home services: No Alcohol intake: current Alcohol intake frequency: holidays/special occasions only Alcohol type: wine Patient Tobacco Use Status: Former Tobacco user Tobacco use type: Cigarette Cigarette Packs Per Day: 1 Cigarettes Per Day: 20.0 Smoked in Last 30 Days: Yes Use of substances other than those prescribed or required for medical reasons: No Substance Use Type: Marijuana Advance Directives: Yes Advance Directives on File: Yes Advance Directives Date on File: 03/09/23 Do you have a plan to hurt others: No Plan Patient : No service: No Physical Exam 2 Vital Signs: Vital Signs: Last Vital Signs Temp 97.9 F 12/09/23 21:54 Pulse 77 12/10/23 00:17 Resp 23 H 12/10/23 00:33 BP 108/55 L 12/10/23 00:17 Pulse Ox 91 L 12/10/23 00:17 O2 Del Method BiPAP 12/10/23 00:17 BMI result Body Mass Index 27.8 Vital signs have been reviewed and appear to be correct. Blood pressure elevated. Heart rate elevated, Respiratory rate elevated, Temperature normal. Oxygen saturation normal. Appearance: Alert. Oriented X3. acute respiratory distress. Head: Normal external exam. Normocephalic. Atraumatic. No Castano signs noted. No raccoon eyes noted Eyes: PERRLA. EOMI. Conjunctiva and sclera normal. Eyelids normal. ENT: TM's Normal. Pharynx normal. Uvula midline. Moist mucous membranes. No trismus noted. No drooling noted. No muffled voice noted. Neck: Normal inspection. Neck supple. FROM. No adenopathy. Thyroid Normal. No meningeal signs. No neck mass noted. CVS: Normal heart rate and rhythm. Heart sound normal. No murmurs noted. Pulses normal throughout. Respiratory: Acute respiratory distress. Painless inspiration. Breath sounds normal. No wheezes/rales/rhonchi noted. Chest nontender. No accessory muscle usage noted or decreased air movement noted. Abdomen: Soft and nontender. Bowel sounds normal in all 4 quadrants. No distention noted. No organomegaly noted. No visible injury noted. Back: No CVA tenderness. Full range of motion noted. Skin: Skin warm and dry. Normal skin color. Normal skin turgor. No rashes/lesions/lacerations noted. Extremities: No lower extremity edema. Extremities exhibit normal range of motion. Extremities nontender. Neuro: Oriented X 3. Cranial nerve exam: II-XII are grossly intact No motor deficit. No sensory deficit. Reflexes normal. Course Reevaluation(s) Reevaluation #1: 58-year-old female came in with acute respiratory distress and hypoxia, found to have high troponin with no chest pain. 1. Patient improved with BiPAP machine in the ED will continue with BiPAP admit to ICU. Unsuccessful attempt to wean the patient off BiPAP machine in the ED. 2. Case discussed with Dr. Thurman for elevated troponin thought to be secondary to hypoxia patient has no chest pain, no ST elevation on the EKG. May consider heparin drip with serial troponin if high suspicion for NSTEMI, the case discussed with Dr. Saunders who will accept the patient to ICU recommended not to start heparin at this point and will follow serial troponins in the ICU. Time: 02:19 Medications Administered Discontinued Medications Generic Name Dose Route Start Last Admin Trade Name Freq PRN Reason Stop Dose Admin Albuterol Sulfate 2.5 mg 12/09/23 22:14 12/09/23 22:18 Albuterol Sulfate (0.083%) 2.5 Mg/3 Ml Vial.Neb INHALE 12/09/23 22:15 2.5 mg ONCE ONE Administration Magnesium Sulfate 2 gm in 50 mls @ 25 mls/hr 12/09/23 22:04 12/09/23 23:59 Magnesium Sulfate/H2o IV 12/10/23 00:03 Infused ONCE ONE Infusion Doxycycline Hyclate 100 mg/ 250 mls @ 166.67 mls/hr 12/09/23 22:07 12/10/23 00:22 Sodium Chloride IV 12/09/23 23:36 Infused ONCE ONE Infusion Methylprednisolone Sodium Succinate 125 mg 12/09/23 22:04 12/09/23 22:14 Methylprednisolone Sod Succ 125 Mg/2 Ml Vial IVPUSH 12/09/23 22:05 125 mg ONCE ONE Administration Medical Decision Making Differential Diagnosis Differential Diagnoses: The differential diagnosis associated with the presentation includes (Acute respiratory failure, hypercarbia, hypoxia, NSTEMI, electrolyte derangement, pneumonia, pneumothorax, pleural effusion, severe anemia.) Admission/Observation Consideration of admission/observation: Escalation of care including admission/observation considered Consult Healthcare Provider Management of the patient was discussed with: Bobbin Disker (Dr. thurman/ Dr. Saunders) Lab Data MDM Lab Attestation statement: I reviewed the patient's lab results. 12/09/23 22:37 12/09/23 22:37 Labs: Lab Results 12/09/23 12/09/23 12/09/23 Range/Units 22:13 22:14 22:32 WBC (4.8-10.8) X10*3/uL RBC (4.20-5.50) X10*6/uL Hgb (12.0-16.0) g/dl Hct (37.0-47.0) % MCV (80.0-98.0) fL MCH (27.0-33.0) pg MCHC (31.0-35.0) g/dl RDW (11.0-16.0) % Plt Count (160-400) X10*3/uL MPV (9.4-12.3) fL Immature Gran % (Auto) (0.0-0.4) % Neut % (Auto) (45-73) % Lymph % (Auto) (20-40) % Curry % (Auto) (2-11) % Eos % (Auto) (0-4) % Baso % (Auto) (0-2) % Lymph # (Auto) (1.2-4.9) X10*3/uL Curry # (Auto) (0.1-1.2) X10*3/uL Eos # (Auto) (0.0-0.4) X10*3/uL Baso # (Auto) (0.0-0.2) X10*3/uL Abs Immat Gran (auto) (0.00-0.03) X10*3/uL Absolute Neuts (auto) (2.0-8.3) x10*3/uL Absolute Nucleated RBC (0.0-0.012) X10*3/uL Nucleated RBC % (auto) (0.0-0.2) /100WBC PT (11.1-13.3) SEC INR (0.9-1.1) O2 Saturation 92.0 % ABG pH at Pt Temp 7.35 (7.35-7.45) ABG pCO2 at Pt Temp 52 H (32-45) mmHg ABG pO2 at Pt Temp 69 L (83-108) mmHg ABG HCO3 29 H (22-26) mmol/L ABG Base Excess (Actual) 2.6 mmol/L VBG pH 7.41 (7.32-7.43) VBG pCO2 44 mmHg VBG pO2 88 mmHg VBG HCO3 28 H (22-26) mmol/L VBG O2 Saturation 99.0 % VBG Base Excess 3.8 mmol/L Sodium (135-145) mmol/L Potassium (3.3-5.1) mmol/L Chloride (96-108) mmol/L Carbon Dioxide (22-29) mmol/L Anion Gap (12-20) BUN (9-16) mg/dL Creatinine (0.5-1.4) mg/dL Estim Creat Clear Calc Estimated GFR Random Glucose (60-115) mg/dL Lactic Acid 1.6 (0.5-2.0) mmol/L Calcium (8.4-10.2) mg/dL Total Bilirubin (0.0-1.0) mg/dL AST (5-31) U/L ALT (0-31) U/L Alkaline Phosphatase (39-117) U/L Troponin I High Sens (<3.5-17.0) ng/L B-Natriuretic Peptide 57 (<100) pg/mL Total Protein (6.5-8.0) g/dL Albumin (3.5-5.0) g/dL 12/09/23 12/09/23 12/10/23 Range/Units 22:37 22:38 01:16 WBC 14.6 H (4.8-10.8) X10*3/uL RBC 4.55 (4.20-5.50) X10*6/uL Hgb 14.8 (12.0-16.0) g/dl Hct 43.6 (37.0-47.0) % MCV 95.8 (80.0-98.0) fL MCH 32.5 (27.0-33.0) pg MCHC 33.9 (31.0-35.0) g/dl RDW 13.8 (11.0-16.0) % Plt Count 336 (160-400) X10*3/uL MPV 9.2 L (9.4-12.3) fL Immature Gran % (Auto) 0.3 (0.0-0.4) % Neut % (Auto) 71.9 (45-73) % Lymph % (Auto) 18.7 L (20-40) % Curry % (Auto) 6.3 (2-11) % Eos % (Auto) 2.7 (0-4) % Baso % (Auto) 0.1 (0-2) % Lymph # (Auto) 2.7 (1.2-4.9) X10*3/uL Curry # (Auto) 0.9 (0.1-1.2) X10*3/uL Eos # (Auto) 0.4 (0.0-0.4) X10*3/uL Baso # (Auto) 0.0 (0.0-0.2) X10*3/uL Abs Immat Gran (auto) 0.05 H (0.00-0.03) X10*3/uL Absolute Neuts (auto) 10.5 H (2.0-8.3) x10*3/uL Absolute Nucleated RBC 0.000 (0.0-0.012) X10*3/uL Nucleated RBC % (auto) 0.0 (0.0-0.2) /100WBC PT 10.1 L (11.1-13.3) SEC INR 0.8 L (0.9-1.1) O2 Saturation % ABG pH at Pt Temp (7.35-7.45) ABG pCO2 at Pt Temp (32-45) mmHg ABG pO2 at Pt Temp (83-108) mmHg ABG HCO3 (22-26) mmol/L ABG Base Excess (Actual) mmol/L VBG pH (7.32-7.43) VBG pCO2 mmHg VBG pO2 mmHg VBG HCO3 (22-26) mmol/L VBG O2 Saturation % VBG Base Excess mmol/L Sodium 145 (135-145) mmol/L Potassium 3.5 (3.3-5.1) mmol/L Chloride 109 H (96-108) mmol/L Carbon Dioxide 26 (22-29) mmol/L Anion Gap 14 (12-20) BUN 11 (9-16) mg/dL Creatinine 0.67 (0.5-1.4) mg/dL Estim Creat Clear Calc 90.9 Estimated GFR > 60 Random Glucose 187 H (60-115) mg/dL Lactic Acid (0.5-2.0) mmol/L Calcium 9.2 (8.4-10.2) mg/dL Total Bilirubin 0.2 (0.0-1.0) mg/dL AST 15 (5-31) U/L ALT 13 (0-31) U/L Alkaline Phosphatase 75 (39-117) U/L Troponin I High Sens 104.3 H* D 267.3 H* D (<3.5-17.0) ng/L B-Natriuretic Peptide (<100) pg/mL Total Protein 7.1 (6.5-8.0) g/dL Albumin 4.4 (3.5-5.0) g/dL Independent Interpretation I performed an independent interpretation of an: EKG (Sinus tachycardia at 01:09, normal axis deviation, normal intervals, nonspecific ST-T changes.) and Plain X-Ray (Chest: No acute pulmonary findings.) Radiology Impression Discussion of test interpretation with radiology: I have reviewed the radiologist's reading. Critical Care Time Critical Care Time Critical Care Time: Yes Total Critical Care Time: 60 Attestation: The patient was critically ill with a high probability of imminent or life- threatening deterioration. I spent greater than 30 minutes of discontinuous time evaluating the patient, delivering critical care at the bedside, discussing evaluating data with consultants. Critical care time does not include time spent performing separately billable procedures or teaching. Time spent performing critical care was 60 minutes. Discharge Plan Discharge Clinical Impression: Acute exacerbation of chronic obstructive airways disease, Hypoxia, Elevated troponin Patient Disposition: Admitted As Inpatient Print Language: Barbadian
[2023-12-09] MEDS: methylPREDNISolone Sod Succ 125 MG/2 ML VIAL IVPUSH (22:14)
[2023-12-09] MEDS: Magnesium Sulfate/H2O 2 GM/50 ML PIGGYBACK IV (22:14)
[2023-12-09 22:16] VITALS: PULSE 98; PULSE 99; RESP 34; O2SAT 91
[2023-12-09 22:17] VITALS: O2SAT 79
[2023-12-09] MEDS: Albuterol Sulfate (0.083%) 2.5 MG/3 ML VIAL.NEB INHALE (22:18)
--- NOTE | 2023-12-09 22:18 | PC.NURSE ---
pt BIBA tripod position extremely sob, labored breathing, increased chest tightness, audible wheezing, pt at 79% room air s/p solumedrol en route by ems and 2 duoneb tx's given by ems. RT at bedside, placed on bipap w/breathing tx. Up to 91%.
[2023-12-09 22:22] LABS: VBG Base Excess 3.8 mmol/L; VBG HCO3 28 mmol/L (22-26); VBG pCO2 44 mmHg; VBG pH 7.41 (7.32-7.43); VBG pO2 88 mmHg
[2023-12-09 22:23] LABS: Venous Blood Gas Refer to POC result
[2023-12-09 22:25] VITALS: O2SAT 91
[2023-12-09 22:33] LABS: Lactic Acid 1.6 mmol/L (0.5-2.0)
[2023-12-09 22:39] LABS: B Type Natriuretic Peptide 57 pg/mL (<100)
[2023-12-09 22:40] LABS: ABG Base Excess 2.6 mmol/L; ABG HCO3 29 mmol/L (22-26); ABG pCO2 52 mmHg (32-45); ABG pH 7.35 (7.35-7.45); ABG pO2 69 mmHg (83-108)
[2023-12-09 22:41] LABS: ABG Refer to POC result
[2023-12-09 22:42] LABS: MANUAL DIFF FLAG NO
[2023-12-09] MEDS: Doxycycline Hyclate 100 MG in 0.9 % Sodium Chloride 250 ML 166.67 MG IV (22:43)
[2023-12-09 22:45] LABS: Basophils Percent Auto 0.1 % (0-2); Eosinophils Absolute Auto 0.4 X10*3/uL (0.0-0.4); Eosinophils Percent Auto 2.7 % (0-4); Hematocrit 43.6 % (37.0-47.0); Hemoglobin 14.8 g/dl (12.0-16.0); Imm Gran Abs Auto 0.05 X10*3/uL (0.00-0.03); Imm Gran Pct Auto 0.3 % (0.0-0.4); Lymphocytes Absolute Auto 2.7 X10*3/uL (1.2-4.9); Lymphocytes Percent Auto 18.7 % (20-40); Mean Corpuscular HGB Conc 33.9 g/dl (31.0-35.0); Mean Corpuscular Hemoglobin 32.5 pg (27.0-33.0); Mean Corpuscular Volume 95.8 fL (80.0-98.0); Mean Platelet Volume 9.2 fL (9.4-12.3); Monocytes Absolute Auto 0.9 X10*3/uL (0.1-1.2); Monocytes Percent Auto 6.3 % (2-11); Neutrophils Absolute Auto 10.5 x10*3/uL (2.0-8.3); Neutrophils Percent Auto 71.9 % (45-73); Platelet Count 336 X10*3/uL (160-400); Red Blood Count 4.55 X10*6/uL (4.20-5.50); Red Cell Distribution Width 13.8 % (11.0-16.0); White Blood Count 14.6 X10*3/uL (4.8-10.8)
[2023-12-09 22:52] LABS: INTERNATIONAL NORM RATIO 0.8 (0.9-1.1); Prothrombin Time 10.1 SEC (11.1-13.3)
[2023-12-09 23:01] LABS: Alanine Aminotransferase 13 U/L (0-31); Albumin Level 4.4 g/dL (3.5-5.0); Alkaline Phosphatase 75 U/L (39-117); Anion Gap 14 (12-20); Aspartate Amino Transferase 15 U/L (5-31); Bilirubin Total 0.2 mg/dL (0.0-1.0); Blood Urea Nitrogen 11 mg/dL (9-16); Calcium 9.2 mg/dL (8.4-10.2); Carbon Dioxide 26 mmol/L (22-29); Chloride 109 mmol/L (96-108); Creatinine Clr Calc Pharmacy 90.9; Estimated Glomerular Filt Rate > 60; Glucose Random 187 mg/dL (60-115); Potassium 3.5 mmol/L (3.3-5.1); Sodium 145 mmol/L (135-145); Total Protein 7.1 g/dL (6.5-8.0)
[2023-12-09 23:13] VITALS: BP 114/61; PULSE 95; RESP 21; O2SAT 90
[2023-12-09 23:20] LABS: Troponin-I High Sensitivity 104.3 ng/L (<3.5-17.0)
[2023-12-10] VITALS (18 sets, daily range): BP systolic 108–172; BP diastolic 55–92; PULSE 75–98; RESP 17–25; TEMP 36.3–36.5; O2SAT 91–98; BMI 30.6
--- NOTE | 2023-12-10 | ECG_ITS ---
Test Reason : elevated troponin Blood Pressure : / mmHG Vent. Rate : 084 BPM Atrial Rate : 084 BPM P-R Int : 146 ms QRS Dur : 084 ms QT Int : 392 ms P-R-T Axes : 069 070 033 degrees QTc Int : 463 ms Normal sinus rhythm Normal ECG When compared with ECG of 09-DEC-2023 21:55, Non-specific change in ST segment in Lateral leads Nonspecific T wave abnormality has replaced inverted T waves in Inferior leads Nonspecific T wave abnormality no longer evident in Lateral leads Referred By: Murphy Saunders Electronically Signed By:HARRIET ANDRES MD
[2023-12-10 01:57] LABS: Troponin-I High Sensitivity 267.3 ng/L (<3.5-17.0)
--- NOTE | 2023-12-10 02:28 | P.HPCC_ITS ---
History of Present Illness Date of Service: 12/10/23 <ORESTES Mcfarland - Last Filed: 12/10/23 03:19> Attending physician on admission: Murphy Saunders <ORESTES Mcfarland - Last Filed: 12/10/23 03:19> Chief Complaint: ACUTE HYPOXIC RESP FAILURE / COPD EXACERBATION <ORESTES Mcfarland - Last Filed: 12/10/23 03:19> HPI: ?58-year-old female with underlying history of hyperlipidemia, tobacco use disorder, exercise related hypoxia nocturnal COPD and O2 dependence at 1 L nasal cannula, who was recently admitted and discharged from this hospital at the beginning of this month, has mood disorder, peripheral neuropathy, chronic back pain, anxiety, vitamin-D deficiency and prior recent episodes of hypoxic respiratory failure, history of lacunar infarcts, occipital neuralgia, retinal aneurysm, sciatica, pulmonary nodules among others. Patient presented to the emergency room with complaints of shortness of breath for the past 24 hours.? Patient did admit having cough without any sputum production, no fever chills, no chest pain, no palpitations, arm or jaw pain, to her knowledge she does not have underlying history of coronary artery disease and has not had a heart attack in the past.? She has not traveled recently and has not been contact with anybody who is sick.? In the ER the patient was noted to be hypoxic at room air as low as 79 % although she is to use nasal cannula oxygen, given the respiratory distress and accessory muscle usage, the patient was placed on BiPAP with good improvement but according to ED physician a few hours after they try to wean her off BiPAP and they were not able to as the patient became hypoxic again therefore this was placed back on. Patient did receive Solu-Medrol, albuterol nebulizers, magnesium and doxycycline.? Baseline ABG shows pH of 7.35, pCO2 of 50 2, PO2 69, HC03 29.? Other laboratories as described below.? Currently the patient states she feels a little better but she still feels has difficulty breathing and otherwise unable to give us history she is on BiPAP. ROS:? Unable to obtain Past Medical History:? As above Past Surgical History: EGD Colonoscopy Lumbar diskectomy Tubal ligation Shoulder surgery Family history:? Noncontributory Social History:? Lives at home with her , has a 40 pack-year history of tobacco consumption and she still smokes a half pack a day.? No alcohol.? Denies drugs. CODE STATUS: FULL CODE Allergies: ?IV contrast (hives), procaine (hives), latex (rash), morphine, Tylenol, hydrocodone, oxycodone (Juan cause vomiting Home Medications: See Med Rec PHYSICAL EXAM: VS: ?108/55, 77, 23, 91% on BiPAP, is 97.9 F General:? Alert oriented x3 no acute distress.? Speaking full sentences.? Speech is well articulated, thought process is coherent.? Following all commands. Took her off BiPAP as the patient wanted to drink satting 92% without accessory muscle usage, no distress noted. Skin:? Intact, no lesions, edema, erythema, clubbing or cyanosis.? No ulcers. HEENT:? Head is normocephalic, atraumatic, pupils equal round reactive to light accommodation bilaterally.? Extraocular movements appear intact.? Buccal mucosa is moist, Neck is supple without lymphadenopathy. Cardiac:? Clear S1-S2, no murmurs rubs or gallops. Pulmonary:? Diminished lung sounds bilaterally with expiratory wheezing throughout, no rhonchi or crackles. Abdomen:? Protuberant, positive bowel sounds in all 4 quadrants.? Soft, nontender, no rebound or guarding.? Musculoskeletal:? Moving all 4 extremities upon request a major joints, there is no crepitus or tenderness.? The strength is 5/5 bilaterally and throughout all 4 extremities.? There is no leg edema , no calf tenderness , no leg asymmetry.? Gait not assessed at this point. Neurologic:? As above, cranial nerves 2-12 are grossly intact.? No focal deficits noted. Vascular:? 2+ pulses upper and lower extremities distally. SIGNIFICANT LABORATORY DATA:? White blood cells 14.6, hemoglobin 14.8, hematocrit 43.6, platelets 336 Sodium 145, potassium 3.5, chloride 109, carbon dioxide 26, anion gap 14, BUN 11, creatinine 0.67, random glucose 187, initial troponin 1 4, repeat troponin 2 hours after is 267, BNP 57. REVIEW OF IMAGES: ?Chest x-ray to my view this shows patent airway, normal bone appearance and anatomy, normal cardiac silhouette, while defined diaphragmatic angles without evidence of effusion.? I do not see any pneumonias.? There is no evidence of pulmonary vascular congestion. EKG REVIEW:? To my view this sinus tachycardia 110 beats per minute.? There is no ST elevations, there are some mild ST depressions in the inferior lateral leads also present on prior studies from 11/15/2023.? This is a poor quality study and overall looks similar to prior. ASSESSMENT : 1. Acute on chronic hypoxic respiratory failure 2. Acute COPD exacerbation 3. Acute respiratory distress 4. Moderate anxiety 5. Abnormal troponin markings likely demand ischemia unlikely ACS 6. Hemo concentration clinical dehydration 7. Reactive leukocytosis 8. Borderline hypokalemia PLAN OF CARE: Patient will be the ICU, monitor vital signs, I's and O's, she is using accessory muscles and tripoding, she is known to have some level of anxiety and will try to address this with low-dose opioids, will avoid benzos as I am concerned that this would decrease her respiratory drive.? Will keep her on BiPAP overnight and recheck blood gases in the morning.? Start her on DuoNeb scheduled and albuterol inhalers p.r.n., continue with IV Solu-Medrol, due to her underlying COPD will place her on Rocephin empirically.? In the past she had desire to quit Nicoderm patches.? We will give her single L of IV fluids slowly to avoid fluid overload and replace potassium. Will order a respiratory pathogen pannel. Overall the patient appears well, The patient is anxious and comes down with reassurance, I also explained the importance of quitting smoking and the reason why at this point we can not give her oral oxycodone given that she has been placed back on BiPAP although I do not anticipate that she will be using this for a longer as there is no accessory muscle usage and no tripoding, no distress. Patient will likely be transferred out of the unit in the morning. GI PROPHYLAXIS: ?Famotidine IV DVT PROPHYLAXIS:? Lovenox subQ Critical care time used for critical evaluation of this patient, diagnosis, treatment and coordination of care, review her records and documentation TOTAL CRITICAL CARE TIME?? 75 MIN . discussion and coordination with consultants, completely separate from any procedures performed. Patient's care was discussed in detail with Dr. Hamilton is aware of all the above as well as the plan of care for this patient. <ORESTES Mcfarland - Last Filed: 12/10/23 03:19> HPI: ?58-year-old female with underlying history of hyperlipidemia, tobacco use disorder, exercise related hypoxia nocturnal COPD and O2 dependence at 1 L nasal cannula, who was recently admitted and discharged from this hospital at the beginning of this month, has mood disorder, peripheral neuropathy, chronic back pain, anxiety, vitamin-D deficiency and prior recent episodes of hypoxic respiratory failure, history of lacunar infarcts, occipital neuralgia, retinal aneurysm, sciatica, pulmonary nodules among others. Patient presented to the emergency room with complaints of shortness of breath for the past 24 hours.? Patient did admit having cough without any sputum production, no fever chills, no chest pain, no palpitations, arm or jaw pain, to her knowledge she does not have underlying history of coronary artery disease and has not had a heart attack in the past.? She has not traveled recently and has not been contact with anybody who is sick.? In the ER the patient was noted to be hypoxic at room air as low as 79 % although she is to use nasal cannula oxygen, given the respiratory distress and accessory muscle usage, the patient was placed on BiPAP with good improvement but according to ED physician a few hours after they try to wean her off BiPAP and they were not able to as the patient became hypoxic again therefore this was placed back on. Patient did receive Solu-Medrol, albuterol nebulizers, magnesium and doxycycline.? Baseline ABG shows pH of 7.35, pCO2 of 50 2, PO2 69, HC03 29.? Other laboratories as described below.? Currently the patient states she feels a little better but she still feels has difficulty breathing and otherwise unable to give us history she is on BiPAP. ROS:? Unable to obtain Past Medical History:? As above Past Surgical History: EGD Colonoscopy Lumbar diskectomy Tubal ligation Shoulder surgery Family history:? Noncontributory Social History:? Lives at home with her , has a 40 pack-year history of tobacco consumption and she still smokes a half pack a day.? No alcohol.? Denies drugs. CODE STATUS: FULL CODE Allergies: ?IV contrast (hives), procaine (hives), latex (rash), morphine, Tylenol, hydrocodone, oxycodone (Juan cause vomiting Home Medications: See Med Rec PHYSICAL EXAM: VS: ?108/55, 77, 23, 91% on BiPAP, is 97.9 F General:? Alert oriented x3 no acute distress.? Speaking full sentences.? Speech is well articulated, thought process is coherent.? Following all commands. Took her off BiPAP as the patient wanted to drink satting 92% without accessory muscle usage, no distress noted. Skin:? Intact, no lesions, edema, erythema, clubbing or cyanosis.? No ulcers. HEENT:? Head is normocephalic, atraumatic, pupils equal round reactive to light accommodation bilaterally.? Extraocular movements appear intact.? Buccal mucosa is moist, Neck is supple without lymphadenopathy. Cardiac:? Clear S1-S2, no murmurs rubs or gallops. Pulmonary:? Diminished lung sounds bilaterally with expiratory wheezing throughout, no rhonchi or crackles. Abdomen:? Protuberant, positive bowel sounds in all 4 quadrants.? Soft, nontender, no rebound or guarding.? Musculoskeletal:? Moving all 4 extremities upon request a major joints, there is no crepitus or tenderness.? The strength is 5/5 bilaterally and throughout all 4 extremities.? There is no leg edema , no calf tenderness , no leg asymmetry.? Gait not assessed at this point. Neurologic:? As above, cranial nerves 2-12 are grossly intact.? No focal deficits noted. Vascular:? 2+ pulses upper and lower extremities distally. SIGNIFICANT LABORATORY DATA:? White blood cells 14.6, hemoglobin 14.8, hematocrit 43.6, platelets 336 Sodium 145, potassium 3.5, chloride 109, carbon dioxide 26, anion gap 14, BUN 11, creatinine 0.67, random glucose 187, initial troponin 1 4, repeat troponin 2 hours after is 267, BNP 57. REVIEW OF IMAGES: ?Chest x-ray to my view this shows patent airway, normal bone appearance and anatomy, normal cardiac silhouette, while defined diaphragmatic angles without evidence of effusion.? I do not see any pneumonias.? There is no evidence of pulmonary vascular congestion. EKG REVIEW:? To my view this sinus tachycardia 110 beats per minute.? There is no ST elevations, there are some mild ST depressions in the inferior lateral leads also present on prior studies from 11/15/2023.? This is a poor quality study and overall looks similar to prior. ASSESSMENT : 1. Acute on chronic hypoxic respiratory failure 2. Acute COPD exacerbation 3. Acute respiratory distress 4. Moderate anxiety 5. Abnormal troponin markings likely demand ischemia unlikely ACS 6. Hemo concentration clinical dehydration 7. Reactive leukocytosis 8. Borderline hypokalemia PLAN OF CARE: Patient will be the ICU, monitor vital signs, I's and O's, she is using accessory muscles and tripoding, she is known to have some level of anxiety and will try to address this with low-dose opioids, will avoid benzos as I am concerned that this would decrease her respiratory drive.? Will keep her on BiPAP overnight and recheck blood gases in the morning.? Start her on DuoNeb scheduled and albuterol inhalers p.r.n., continue with IV Solu-Medrol, due to her underlying COPD will place her on Rocephin empirically.? In the past she had desire to quit Nicoderm patches.? We will give her single L of IV fluids slowly to avoid fluid overload and replace potassium. Will order a respiratory pathogen pannel. Overall the patient appears well, The patient is anxious and comes down with reassurance, I also explained the importance of quitting smoking and the reason why at this point we can not give her oral oxycodone given that she has been placed back on BiPAP although I do not anticipate that she will be using this for a longer as there is no accessory muscle usage and no tripoding, no distress. Patient will likely be transferred out of the unit in the morning. GI PROPHYLAXIS: ?Famotidine IV DVT PROPHYLAXIS:? Lovenox subQ Critical care time used for critical evaluation of this patient, diagnosis, treatment and coordination of care, review her records and documentation TOTAL CRITICAL CARE TIME?? 75 MIN . discussion and coordination with consultants, completely separate from any procedures performed. Patient's care was discussed in detail with Dr. Hamilton is aware of all the above as well as the plan of care for this patient. Update: This a.m. patient is doing well, saturations normal on room air, could talk for about 20 minutes without stopping and no stress. Solu-Medrol decreased to p.o. prednisone 40 mg daily. Troponin trend increased to 240, but patient complains of no chest pain or shortness of breath at present. Possibly the troponin leak is secondary to hypoxia, TTE ordered. If there is regional wall motion abnormalities please call cardiology <Murphy Saunders MD - Last Filed: 12/10/23 08:56> [facility] Past Medical History Medical History: Medical History Trigeminal neuralgia Pulmonary nodules COPD (chronic obstructive pulmonary disease) Mixed hyperlipidemia Peripheral neuropathy Tobacco use disorder Mood disorder <ORESTES Mcfarland - Last Filed: 12/10/23 03:19> Surgical History Surgical History: Surgical History History of esophagogastroduodenoscopy (EGD) History of colonoscopy History of lumbar discectomy History of tubal ligation History of excision of mass History of shoulder surgery <ORESTES Mcfarland - Last Filed: 12/10/23 03:19> Social History Social History: Social History Household Members: Spouse Housing: Condominium Do you presently have visiting nurse or other home services: No Alcohol intake: current Alcohol intake frequency: holidays/special occasions only Alcohol type: wine Patient Tobacco Use Status: Current everyday Tobacco user Tobacco use type: Cigarette Cigarette Packs Per Day: 1 Cigarettes Per Day: 20.0 Smoked in Last 30 Days: Yes e-Cigarette/Vaping Use: Never Used Patient Interested in Nicotine Replacement: No Second Hand Smoke Exposure: No Use of substances other than those prescribed or required for medical reasons: Yes Substance Use Type: Marijuana Substance Use Frequency: Occasionally Last Used Substance: Days (ago) Currently Displaying Signs/Symptoms of Drug Intoxication Withdrawal: No Any prior treatment program specific to substance use: No Have you been hit, kicked, punched, or otherwise hurt by someone within the past year? If so, by whom?: No Do you feel safe in your current relationship?: Yes Is there a partner from a previous relationship who is making you feel unsafe now?: No Are you made to feel afraid or neglected: No Advance Directives: Yes Advance Directives on File: Yes Advance Directives Date on File: 03/09/23 Do you have a plan to hurt others: No Plan Recently lost weight without trying: No Eating poorly because of decreased appetite: No Nutrition Risks: No Nutritional Risk Patient : No : No service: No <ORESTES Mcfarland - Last Filed: 12/10/23 03:19> Meds Allergies/Adverse reactions: Allergies Allergy/AdvReac Type Severity Reaction Status Date / Time Iodinated Contrast Media Allergy Intermediate HIVES Verified 12/09/23 22:00 [IV CONTRAST] acetaminophen [From VICODIN] Allergy Unknown VOMITING Verified 12/09/23 22:00 hydrocodone [From VICODIN] Allergy Unknown VOMITING Verified 12/09/23 22:00 latex [LATEX] Allergy Unknown RASH Verified 12/09/23 22:00 oxycodone [From PERCOCET] Allergy Unknown VOMITING Verified 12/09/23 22:00 procaine [From Novocain] Allergy Unknown HIVES Verified 12/09/23 22:00 morphine [MORPHINE] AdvReac Unknown VOMITING Verified 12/09/23 22:00 <ORESTES Mcfarland - Last Filed: 12/10/23 03:19> Home medications: Home Medications ?Medication ?Instructions ?Recorded ?Confirmed ?Last Taken ?Type atorvastatin 80 mg tablet 80 mg PO BEDTIME 03/04/23 12/10/23 12/09/23 21:00 History baclofen 10 mg tablet 10 mg PO TID 03/04/23 12/10/23 12/09/23 21:00 History [id number] 1 tab PO DAILY PRN Headache 03/04/23 12/10/23 12/09/23 21:00 History 50 mg-325 mg-40 mg tablet duloxetine 60 mg capsule,delayed 60 mg PO BID 03/04/23 12/10/23 12/09/23 21:00 History release gabapentin 300 mg capsule 1,200 mg PO TID 03/04/23 12/10/23 12/09/23 21:00 History hydrocodone 5 mg-acetaminophen 325 1 tab PO DAILY PRN Pain 03/04/23 12/10/23 12/09/23 21:00 History mg tablet hyoscyamine sulfate 0.125 mg tablet 0.125 - 0.25 mg PO Q4-6H PRN 03/04/23 12/10/23 12/09/23 21:00 History Abdominal Discomfort lorazepam 1 mg tablet 1 mg PO DAILY PRN Anxiety 03/04/23 12/10/23 12/09/23 21:00 History oxcarbazepine 600 mg tablet 600 mg PO BID 03/04/23 12/10/2324 21:00 History Oxygen Home Use 04/16/23 Unknown History prazosin 2 mg capsule 2 mg PO BEDTIME 04/16/23 12/10/23 12/09/23 21:00 History albuterol sulfate 90 mcg/actuation 2 inh inhalation Q4H PRN shortness 11/15/23 12/10/23 12/09/23 21:00 History aerosol inhaler of breath or wheezing calcium carbonate 600 mg-vitamin 1 tab PO DAILY 11/15/23 12/10/23 12/09/23 21:00 History D3 5 mcg (200 unit) tablet <ORESTES Mcfarland - Last Filed: 12/10/23 03:19> Physical Exam 2 Vital Signs: Vital Signs: Last Vital Signs Temp 97.9 F 12/09/23 21:54 Pulse 77 12/10/23 00:17 Resp 23 H 12/10/23 00:33 BP 108/55 L 12/10/23 00:17 Pulse Ox 91 L 12/10/23 00:17 O2 Del Method BiPAP 12/10/23 00:17 BMI result Body Mass Index 27.8 <ORESTES Mcfarland - Last Filed: 12/10/23 03:19> Results Labs CBC and Chem 7: 12/10/23 04:42 12/10/23 04:42 <ORESTES Mcfarland - Last Filed: 12/10/23 03:19> Labs: Laboratory Results - last 24 hr 12/09/23 12/09/23 12/09/23 22:13 22:14 22:32 MCV MCH MCHC RDW Plt Count MPV Immature Gran % (Auto) Neut % (Auto) Lymph % (Auto) [place] % (Auto) Eos % (Auto) Baso % (Auto) Lymph # (Auto) [place] # (Auto) Eos # (Auto) Baso # (Auto) Abs Immat Gran (auto) Absolute Neuts (auto) Absolute Nucleated RBC Nucleated RBC % (auto) PT INR O2 Saturation 92.0 ABG pH at Pt Temp 7.35 ABG pCO2 at Pt Temp 52 H ABG pO2 at Pt Temp 69 L ABG HCO3 29 H ABG Base Excess (Actual) 2.6 VBG pH 7.41 VBG pCO2 44 VBG pO2 88 VBG HCO3 28 H VBG O2 Saturation 99.0 VBG Base Excess 3.8 Anion Gap Estim Creat Clear Calc Estimated GFR Random Glucose Lactic Acid 1.6 Calcium Total Bilirubin AST ALT Alkaline Phosphatase Troponin I High Sens B-Natriuretic Peptide 57 Total Protein Albumin 12/09/23 12/09/23 12/10/23 22:37 22:38 01:16 MCV 95.8 MCH 32.5 MCHC 33.9 RDW 13.8 Plt Count 336 MPV 9.2 L Immature Gran % (Auto) 0.3 Neut % (Auto) 71.9 Lymph % (Auto) 18.7 L [place] % (Auto) 6.3 Eos % (Auto) 2.7 Baso % (Auto) 0.1 Lymph # (Auto) 2.7 [place] # (Auto) 0.9 Eos # (Auto) 0.4 Baso # (Auto) 0.0 Abs Immat Gran (auto) 0.05 H Absolute Neuts (auto) 10.5 H Absolute Nucleated RBC 0.000 Nucleated RBC % (auto) 0.0 PT 10.1 L INR 0.8 L O2 Saturation ABG pH at Pt Temp ABG pCO2 at Pt Temp ABG pO2 at Pt Temp ABG HCO3 ABG Base Excess (Actual) VBG pH VBG pCO2 VBG pO2 VBG HCO3 VBG O2 Saturation VBG Base Excess Anion Gap 14 Estim Creat Clear Calc 90.9 Estimated GFR > 60 Random Glucose 187 H Lactic Acid Calcium 9.2 Total Bilirubin 0.2 AST 15 ALT 13 Alkaline Phosphatase 75 Troponin I High Sens 104.3 H* D 267.3 H* D B-Natriuretic Peptide Total Protein 7.1 Albumin 4.4 <ORESTES Mcfarland - Last Filed: 12/10/23 03:19> Imaging Radiologist's Impressions: Impressions Chest X-Ray 12/09/23 23:11 IMPRESSION: No acute pulmonary findings. <ORESTES Mcfarland - Last Filed: 12/10/23 03:19>
[2023-12-10] MEDS: cefTRIAXone sodium 1 GM in 0.9 % Sodium Chloride 50 ML IV (03:12)
[2023-12-10] MEDS: Enoxaparin Sodium 40 MG/0.4 ML SYRINGE SUBCUT (03:15)
[2023-12-10] MEDS: methylPREDNISolone Sod Succ 40 MG/ML VIAL IVPUSH (03:15)
[2023-12-10] MEDS: Lactated Ringers 1,000 ML 100 ML IVCONT (03:57)
[2023-12-10] MEDS: Potassium Chloride/H20 10 MEQ/100 ML PIGGYBACK 100 MEQ IV ×2 (03:58→05:15)
[2023-12-10 04:47] LABS: VBG Base Excess -0.4 mmol/L; VBG HCO3 24 mmol/L (22-26); VBG pCO2 39 mmHg; VBG pH 7.39 (7.32-7.43); VBG pO2 70 mmHg
[2023-12-10 04:54] LABS: Basophils Percent Auto 0.1 % (0-2); Hematocrit 40.8 % (37.0-47.0); Hemoglobin 13.5 g/dl (12.0-16.0); Imm Gran Abs Auto 0.03 X10*3/uL (0.00-0.03); Imm Gran Pct Auto 0.3 % (0.0-0.4); Lymphocytes Absolute Auto 0.2 X10*3/uL (1.2-4.9); Lymphocytes Percent Auto 2.4 % (20-40); MANUAL DIFF FLAG SCAN; Mean Corpuscular HGB Conc 33.1 g/dl (31.0-35.0); Mean Corpuscular Hemoglobin 32.1 pg (27.0-33.0); Mean Corpuscular Volume 97.1 fL (80.0-98.0); Mean Platelet Volume 9.3 fL (9.4-12.3); Monocytes Percent Auto 0.4 % (2-11); Neutrophils Absolute Auto 8.8 x10*3/uL (2.0-8.3); Neutrophils Percent Auto 96.8 % (45-73); Platelet Count 302 X10*3/uL (160-400); SCAN SMEAR FLAG 1; White Blood Count 9.1 X10*3/uL (4.8-10.8)
[2023-12-10 05:04] LABS: Venous Blood Gas Refer to POC result
[2023-12-10 05:10] LABS: Alanine Aminotransferase 14 U/L (0-31); Albumin Level 4.1 g/dL (3.5-5.0); Alkaline Phosphatase 68 U/L (39-117); Anion Gap 14 (12-20); Aspartate Amino Transferase 14 U/L (5-31); Bilirubin Total 0.1 mg/dL (0.0-1.0); Blood Urea Nitrogen 11 mg/dL (9-16); Calcium 9.1 mg/dL (8.4-10.2); Carbon Dioxide 23 mmol/L (22-29); Chloride 109 mmol/L (96-108); Creatinine Clr Calc Pharmacy 89.8; Estimated Glomerular Filt Rate > 60; Glucose Random 181 mg/dL (60-115); Potassium 3.9 mmol/L (3.3-5.1); Sodium 142 mmol/L (135-145); Total Protein 6.5 g/dL (6.5-8.0)
[2023-12-10 05:17] LABS: SLIDE REVIEW VERIFIED; Troponin-I High Sensitivity 294.5 ng/L (<3.5-17.0)
--- NOTE | 2023-12-10 07:00 | CA_ITS ---
Transthoracic Echocardiogram Patient (Last, First, Middle): Zulma Alves R Gender: Female Date of : 1965 Age: 58 Procedure Date: 12/10/2023 Procedure Type: Transthoracic Echocardiogram Location: [facility] [place] Height: 165.1 cm Weight: 83.01 kg BSA: 1.90 m2 Heart Rate: 93 bpm BP: 151 / 64 mmHg Financial Administrative Assistant: JACQUELINE Mackey MD: Murphy Saunders MD Roof Service Technician: Vladimir Thurman MD Symptoms: troponin leak Study Quality: Technically Difficult ECG Rhythm: Sinus Conclusions: - 1. Hyperdynamic LV ejection fraction greater than 70% with impaired relaxation filling pattern 2. Mild aortic stenosis 3. No gross pericardial effusion Findings Procedure Information Contrast agent, definity, is being given per protocol without apparent complications. Left Ventricle Normal left ventricular cavity size. There is normal left ventricular wall thickness. The left ventricular systolic function is hyperdynamic. The visually estimated ejection fraction is >70%. Spectral Doppler is indicative of an impaired relaxation filling pattern. Right Ventricle The right ventricle was not well visualized. Atria The left atrium was not well visualized. Interatrial shunt cannot be excluded. The right atrium was not well visualized. Aortic Valve The aortic valve was not well visualized. There is mild calcification of the aortic valve. There is mild aortic valve stenosis. The peak aortic velocity is 2.60 m/s. The mean gradient is 12 mmHg. The aortic valve area is 1.82 cm2. There is no aortic valve regurgitation. Mitral Valve The mitral valve was not well visualized. There is mild anterior mitral leaflet thickening. There is no mitral valve regurgitation. There is no mitral valve stenosis. Pulmonic Valve The pulmonic valve was not well visualized. Tricuspid Valve Likely normal tricuspid valve structure and function. There is mild septal tricuspid leaflet thickening. There is no tricuspid valve regurgitation. Great Vessels All visible segments of the aorta are normal in size. The pulmonary artery was not well visualized. Venous The inferior vena cava is normal in size and collapses greater than 50% with inspiration. Pericardium/Pleural There is no evidence of pericardial effusion. Prior Study Comparison No prior study available for comparison. Measurements 2D Linear Measurements IVSd: 1.13 0.6-0.9/0.6-1.0 cm LVIDd: 3.14 3.9-5.3/4.2-5.9 cm LVIDd Index: 1.65 2.4-3.2/2.2-3.1 cm/m2 LVIDs: 2.01 2.0-3.6 cm LVPWd: 1.09 0.7-1.1 cm LA Diam: 3.10 2.7-3.8/3.0-4.0 cm LAIDs Index: 1.63 1.5-2.3 cm/m2 LV Mass: 127.95 67-162/88-224 g LV Mass Index: 67.34 43-95/49-115 g/m2 LVOT Diam: 1.70 3.0+(-)1.3 cm 2D Systolic Function EF 4C: 80.80 >55% EF 2C: 60.30 >55% EF BiP: 73.30 >55% Mitral Valve MV Pk E: 0.76 MV PK A: 0.97 MV Decel Time: 271.00 E/A: 0.80 E'Lateral: 9.03 E'Medial: 10.00 E/E' Med: 7.60 E/E' Lat: 8.40 PHT: 79.00 MVA PHT: 2.78 Decel [place]: 2.80 Aortic Valve AoV Pk Griffin: 2.60 AoV Mn Griffin: 1.63 AoV VTI: 0.45 AoV Pk Grad: 27.00 Aov Mn Grad: 12.00 PERICO Cont.VTI: 1.82 LVOT LVOT Pk Griffin: 1.80 LVOT Mn Griffin: 1.33 LVOT VTI: 0.36 LVOT Pk Grad: 13.00 LVOT Mn Grad: 8.00 LVOT Diam: 1.70 LVOT Area: 2.27 Diastolic Function MV Pk E: 0.76 MV Pk A: 0.97 E/A: 0.80 E'Medial: 10.00 E/E' Med: 7.60 E' Laterial: 9.03 E/E' Lat: 8.40 Right Ventricle TAPSE (mm): 23.50 TVS' Griffin: 10.60 Tricuspid Valve TR Pk Griffin: 1.54 TR Pk Grad: 9.00 RA Press: 3.00 RVSP: 12.00 Great Vessels Aorta Sinus of Valsalva: 3.20 2.0-3.5 cm Ao Asc: 2.90 2.1-3.4 cm Pulmonary Valve PV Pk Griffin: 1.17 Peak PV Grad: 5.00 Updated in Other Vendor System with Status of Final Vladimir Thurman MD electronically signed on 12/10/2023 1:25:36 PM with status of Final
[2023-12-10] MEDS: Albuterol/Iprat 2.5/0.5MG 3 ML AMPUL.NEB INHALE ×4 (07:36→20:24)
[2023-12-10] MEDS: Famotidine/PF 20 MG/2 ML VIAL IVPUSH (08:14)
--- NOTE | 2023-12-10 09:24 | MHC.CM.PN ---
CM MET WITH PT AT BEDSIDE IN ICU. PT HAS BEEN DOWNGRADED TO THE MEDICAL FLOOR. PT LIVES WITH SPOUSE, USES CANE/HAS HOME 02 VIA [employer]. PT IS CURRENTLY ACTIVE WITH [facility] FOR SN AND P.T. + HCP ON FILE. PCP GABRIEL CONDON DP: GOAL IS HOME WITH RESUMPTION OF [facility]. RETURN REFERRAL SENT. [facility] WILL TRANSPORT HOME. CM WILL CONTINUE TO FOLLOW FOR ANY CHANGE TO DC PLAN/NEEDS.
[2023-12-10] MEDS: predniSONE 20 MG TABLET 40 MG PO (09:43)
[2023-12-10] MEDS: Baclofen 10 MG TABLET PO ×3 (09:44→21:11)
[2023-12-10] MEDS: Gabapentin 400 MG CAPSULE 1200 MG PO ×3 (09:44→21:09)
[2023-12-10] MEDS: OXcarbazepine 300 MG TABLET 600 MG PO ×2 (09:44→21:11)
[2023-12-10] MEDS: HYDROcodone Bit/Acetam 5/325 TABLET 1 TAB PO ×2 (09:44→15:44)
[2023-12-10] MEDS: DULoxetine HCl 60 MG CAPSULE.DR PO ×2 (09:44→21:10)
--- NOTE | 2023-12-10 09:50 | PHA.MEDREC ---
Pharmacy Consult ? Medication Reconciliation Pharmacy has completed the medication reconciliation. Spoke with patient at bedside, they were able to confirm all their medications with me and matched the med rec done by nursing earlier. Confirmed that the Prednisone was a taper and she is no longer taking and that she does take the Tiotropium/olodaterol inhaler.
[2023-12-10 12:10] LABS: Adenovirus PCR Not Detected (Not Detect.); Bordetella parapertussis PCR Not Detected (Not Detect.); Bordetella pertussis PCR Not Detected (Not Detect.); Chlamydia pneumoniae PCR Not Detected (Not Detect.); Coronavirus 229E PCR Not Detected (Not Detect.); Coronavirus HKU1 PCR Not Detected (Not Detect.); Coronavirus NL63 PCR Not Detected (Not Detect.); Coronavirus OC43 PCR Not Detected (Not Detect.); Human metapneumovirus PCR Not Detected (Not Detect.); Influenza A PCR Not Detected (Not Detect.); Influenza B PCR Not Detected (Not Detect.); Mycoplasma pneumoniae PCR Not Detected (Not Detect.); Parainfluenza 1 PCR Not Detected (Not Detect.); Parainfluenza 2 PCR Not Detected (Not Detect.); Parainfluenza 3 PCR Not Detected (Not Detect.); Parainfluenza 4 PCR Not Detected (Not Detect.); RSV PCR Not Detected (Not Detect.); Rhino/Enterovirus PCR Not Detected (Not Detect.); SARS-CoV-2 PCR Not Detected (Not Detect.)
[2023-12-10 14:10] LABS: Troponin-I High Sensitivity 275.4 ng/L (<3.5-17.0)
[2023-12-10] MEDS: Prazosin HCL 1 MG CAPSULE 2 MG PO (21:11)
--- NOTE | 2023-12-10 22:33 | PC.NURSE ---
Addendum entered by Devendra Moura RN 12/10/23 22:37: MD AWARE Original Note: pt reported to staff member she took cannabis edible before going on BIPAP last night . Pt complied with search and cannabis edibles were discovered in personal bag. Removed from room. Patient stated she has not taken any today and takes them regularly before bed.
[2023-12-10] MEDS: Albuterol Sulfate (0.083%) 2.5 MG/3 ML VIAL.NEB INHALE (23:19)
[2023-12-11] VITALS (13 sets, daily range): BP systolic 123–166; BP diastolic 60–80; PULSE 78–119; RESP 16–33; TEMP 35.8–36.7; O2SAT 94–98
[2023-12-11] MEDS: LORazepam 0.5 MG TABLET PO (00:16)
[2023-12-11] MEDS: Albuterol Sulfate (0.083%) 2.5 MG/3 ML VIAL.NEB INHALE (02:36)
[2023-12-11] MEDS: Albuterol Sulfate 5 MG, Albuterol/Iprat 2.5/0.5MG 3 ML 3 ML INHALE (02:56)
[2023-12-11] MEDS: methylPREDNISolone Sod Succ 125 MG/2 ML VIAL 80 MG IVPUSH (03:01)
[2023-12-11] MEDS: Enoxaparin Sodium 40 MG/0.4 ML SYRINGE SUBCUT (03:45)
[2023-12-11] MEDS: cefTRIAXone sodium 1 GM in 0.9 % Sodium Chloride 50 ML IV (03:45)
[2023-12-11] MEDS: HYDROcodone Bit/Acetam 5/325 TABLET 1 TAB PO ×3 (04:11→17:22)
[2023-12-11] MEDS: Baclofen 10 MG TABLET PO ×3 (04:11→22:18)
[2023-12-11] MEDS: OXcarbazepine 300 MG TABLET 600 MG PO ×2 (04:11→22:17)
[2023-12-11] MEDS: Gabapentin 400 MG CAPSULE 1200 MG PO ×3 (04:12→22:16)
[2023-12-11] MEDS: DULoxetine HCl 60 MG CAPSULE.DR PO ×2 (04:13→22:22)
--- NOTE | 2023-12-11 07:30 | P.PNIM_ITS ---
Subjective Subjective Date of Service: 12/11/23 Interval History: seen in follow up for acute hypoxic respiratory failure, copd exacerbation interval history weaned from bipap which was replaced last night due to increased WOB, air hunger. No chest pain. Breathing more comfortably now. Trops elevated Review of Systems Review of Systems: Yes all other systems are reviewed and are negative Physical Exam 2 Vital Signs: Vital Signs: Last Vital Signs Temp 97.0 F 12/11/23 04:00 Pulse 119 H 12/11/23 04:00 Resp 28 H 12/11/23 04:00 BP 148/70 H 12/11/23 04:00 Pulse Ox 98 12/11/23 04:00 O2 Del Method BiPAP 12/11/23 04:00 O2 Flow Rate 1 12/10/23 08:00 FiO2 28 12/11/23 04:00 BMI result Body Mass Index 30.6 Constitutional - Awake and Alert, No apparent distress Eyes - PERRLA, EOMI Cardiovascular - S1S2, RRR, No edema Respiratory - Normal lung expansion, Normal respiratory effort, No respiratory distress, CTA bilaterally Gastrointestinal - NT / ND; +BS; No rebound or guarding Extremities - no calf tenderness bilaterally, no swelling Skin - Warm/Dry Neurological - Alert & oriented x3 Psychological - Appropriate affect Objective Data Active Medications Acetaminophen/Butalbital/Caffeine (Butalb/Acetamin/Caff 50/325/40 Tablet) 1 tab PO DAILY PRN PRN Reason: Headache Hydrocodone Bitart/Acetaminophen (Hydrocodone Bit/Acetam 5/325 Tablet) 1 tab PO Q6H PRN PRN Reason: Pain, Moderate(Pain Scale 4-6) Last Admin: 12/11/23 04:11 Dose: 1 tab Documented By: PASHA Albuterol Sulfate (Albuterol Sulfate (0.083%) 2.5 Mg/3 Ml Vial.Neb) 2.5 mg INHALE Q2H PRN PRN Reason: Wheezing Last Admin: 12/11/23 02:36 Dose: 2.5 mg Documented By: KWABENA Albuterol/Ipratropium (Albuterol/Iprat 2.5/0.5mg 3 Ml Ampul.Neb) 3 ml INHALE RQ4H WHILE AWAKE [facility] Last Admin: 12/10/23 20:24 Dose: 3 ml Documented By: KWABENA Baclofen (Baclofen 10 Mg Tablet) 10 mg PO TID@0400,1300,2100 [facility] Last Admin: 12/11/23 04:11 Dose: 10 mg Documented By: PASHA Duloxetine HCl (Duloxetine Hcl 60 Mg Capsule.) 60 mg PO BID@0400,2100 [facility] Last Admin: 12/11/23 04:13 Dose: 60 mg Documented By: PASHA Enoxaparin Sodium (Enoxaparin Sodium 40 Mg/0.4 Ml Syringe) 40 mg SUBCUT Q24H [facility] Last Admin: 12/11/23 03:45 Dose: 40 mg Documented By: PASHA Famotidine (Famotidine/Pf 20 Mg/2 Ml Vial) 20 mg IVPUSH DAILY [facility] Last Admin: 12/10/23 08:14 Dose: 20 mg Documented By: PJ Gabapentin (Gabapentin 400 Mg Capsule) 1,200 mg PO TID@0400,1300,2100 [facility] Last Admin: 12/11/23 04:12 Dose: 1,200 mg Documented By: PASHA Ceftriaxone Sodium 1 gm/ (Sodium Chloride) 50 mls @ 100 mls/hr IV Q24H [facility] Last Infusion: 12/11/23 05:33 Dose: Infused Documented By: PASHA Pt Own (Hyoscyamine (Sulfate 0.125 Mg)) 0.125 mg PO Q4H PRN PRN Reason: abdominal cramps Last Admin: 12/10/23 23:56 Dose: 0.125 mg Documented By: PASHA Oxcarbazepine (Oxcarbazepine 300 Mg Tablet) 600 mg PO BID@0400,2100 [facility] Last Admin: 12/11/23 04:11 Dose: 600 mg Documented By: PASHA Prazosin HCl (Prazosin Hcl 1 Mg Capsule) 2 mg PO BEDTIME [facility]; Protocol Last Admin: 12/10/23 21:11 Dose: 2 mg Documented By: PASHA Prednisone (Prednisone 20 Mg Tablet) 40 mg PO DAILY [facility] Last Admin: 12/10/23 09:43 Dose: 40 mg Documented By: MJ Labs 12/11/23 07:48 12/11/23 07:48 Labs: Laboratory Results - last 24 hr 12/10/23 12/10/23 03:16 13:16 Troponin I High Sens 275.4 H* Respiratory Panel Marquez See Note Adenovirus (Rapid PCR) Not Detected B.pert (TEM-PCR) Not Detected B.parapertussis DNA PCR Not Detected C. pneumoniae DNA (PCR) Not Detected Coronavirus OC43 (PCR) Not Detected Coronavirus HKU1 (PCR) Not Detected Coronavirus 229E (PCR) Not Detected Coronavirus NL63 (PCR) Not Detected Human Metapneumovir PCR Not Detected Influenza A (RT-PCR) Not Detected Influenza B (RT-PCR) Not Detected M. pneumoniae (PCR) Not Detected Parainfluenza 1 (PCR) Not Detected Parainfluenza 2 (PCR) Not Detected Parainfluenza 3 (PCR) Not Detected Parainfluenza 4 (PCR) Not Detected RSV (PCR) Not Detected Entero/Rhino (PCR) Not Detected SARS-CoV-2 RNA (RT-PCR) Not Detected Microbiology Microbiology Results: Microbiology 12/09/23 22:38 Blood Culture - Preliminary Blood - Venous No growth after 24 hours. 12/09/23 22:23 Blood Culture - Preliminary Blood - Venous No growth after 24 hours. Assessment and Plan (1) COPD exacerbation: Status: Resolved (2) Acute and chronic respiratory failure with hypoxia: Status: Resolved Plan 58-year-old female with history of hyperlipidemia, mood disorder, COPD with exercise hypoxemia and nocturnal hypoxemia, lacunar infarcts, PTSD, MVR, occipital neuralgia, tricuspid insufficiency, brain aneurysm, and right-sided sciatica admitted for COPD exacerbation with acute on chronic hypoxemic respiratory failure # COPD exacerbation with acute on chronic hypoxemic respiratory failure and respiratory, she was briefly in ICU for BiPAP use, overall better -RPP negative, No pneumonia - PO steroid patrice, bronchodilators by Neb, coough meds, pulmonology eval, doesn't qualify for BiPAP at home per pulmonology, O2 goal of sat 88-92%. -required bipap overnight, suspect anxiety plays role. Increase ativan to bid prn, add IS #Elevated trops- likely Type 2 NSTEMI -trops 294-->271-->486 -echo without hypokinesis/akinesis -per cardiology, asa/statin, outpt MIBI #Mood disorder/anxiety, Ativan PRN #HTN, continue minipress, norvasc and lasix #Occipital/trigeminal neuralgia- following parotid gland mass -continue baclofen, gabapenin, vicOdin #HLD -continue statin overweight -encouraged to lose weight ,cut down calories. dvt prophyalxis- lovenox full code need for inpt: acute copd exacerbation with severe bronchospasm needing bipap in icu and again overnight, will require ongoing monitoring of respiratory status to monitor for and prevent decompensation PT is recommending STR and is agreable vs home with service, she's leaning to going home Quality Stroke Does the patient have a stroke diagnosis?: No VTE Prior VTE?: No VTE Risk Level:: Medical - moderate - high VTE Device Contraindication: N/A - Device Ordered VTE Drug Contraindication: N/A - Med Ordered
[2023-12-11] MEDS: Albuterol/Iprat 2.5/0.5MG 3 ML AMPUL.NEB INHALE ×4 (07:33→19:50)
[2023-12-11 08:13] LABS: Basophils Percent Auto 0.2 % (0-2); Eosinophils Percent Auto 0.2 % (0-4); Hematocrit 40.5 % (37.0-47.0); Hemoglobin 13.5 g/dl (12.0-16.0); Imm Gran Abs Auto 0.07 X10*3/uL (0.00-0.03); Imm Gran Pct Auto 0.5 % (0.0-0.4); Lymphocytes Absolute Auto 0.7 X10*3/uL (1.2-4.9); Lymphocytes Percent Auto 5.3 % (20-40); MANUAL DIFF FLAG SCAN; Mean Corpuscular HGB Conc 33.3 g/dl (31.0-35.0); Mean Corpuscular Hemoglobin 32.8 pg (27.0-33.0); Mean Corpuscular Volume 98.3 fL (80.0-98.0); Mean Platelet Volume 9.3 fL (9.4-12.3); Monocytes Absolute Auto 0.3 X10*3/uL (0.1-1.2); Neutrophils Absolute Auto 11.7 x10*3/uL (2.0-8.3); Neutrophils Percent Auto 91.8 % (45-73); Platelet Count 331 X10*3/uL (160-400); Red Blood Count 4.12 X10*6/uL (4.20-5.50); Red Cell Distribution Width 14.8 % (11.0-16.0); SCAN SMEAR FLAG 1; White Blood Count 12.7 X10*3/uL (4.8-10.8)
[2023-12-11 08:34] LABS: Anion Gap 13 (12-20); Blood Urea Nitrogen 12 mg/dL (9-16); Calcium 9.1 mg/dL (8.4-10.2); Carbon Dioxide 25 mmol/L (22-29); Chloride 108 mmol/L (96-108); Creatinine Clr Calc Pharmacy 88.6; Estimated Glomerular Filt Rate > 60; Glucose Random 157 mg/dL (60-115); Potassium 4.2 mmol/L (3.3-5.1); Sodium 142 mmol/L (135-145)
[2023-12-11] MEDS: Famotidine/PF 20 MG/2 ML VIAL IVPUSH (08:36)
[2023-12-11] MEDS: predniSONE 20 MG TABLET 40 MG PO (08:36)
[2023-12-11 08:41] LABS: SLIDE REVIEW VERIFIED
[2023-12-11 09:06] LABS: Troponin-I High Sensitivity 486.4 ng/L (<3.5-17.0)
[2023-12-11] MEDS: Aspirin Enteric Coated 81 MG TABLET.DR PO (12:56)
--- NOTE | 2023-12-11 13:18 | P.CONCA_ITS ---
History of Present Illness History of Present Illness Date of Service: 12/11/23 Requesting physician: Nuha Bhakta Consult reason: troponin elevation Chief complaint: Hypoxic Resp Failure Narrative: I was consulted to see Zulma in cardiology consultation today for elevated troponin. Patient with prior history of severe COPD requires oxygen at home but not sure she uses all the time, lacunar infarcts, memory loss, peripheral neuropathy, hyperlipidemia, family history for premature coronary artery disease came to the hospital with acute respiratory failure related to bronchospastic airway disease. She had no EKG changes of chest pain that point time. She subsequently had troponins checked which showed myocardial injury with rising pattern consistent with acute myocardial injury and NSTEMI. She had no chest pain or acute ischemic changes. Echocardiogram shows hyperdynamic LV EF greater than 70%. She says she has never had any prior CAD events or myocardial infarction. However she is limited functionality at home and walks with a cane. She continues to smoke unfortunately. Review of Systems 2 Constitutional: Constitutional: Reports no additional constitutional complaints Cardiovascular: Cardiovascular: Denies chest pain, Denies leg edema, Denies lightheadedness, Denies Loss of Consciousness, Denies palpitations and Reports dyspnea on exertion Respiratory: Respiratory: Reports cough, Reports excessive phlegm production, Reports dyspnea on exertion and Reports wheezing Gastrointestinal: Gastrointestinal: Reports no additional gastrointestinal complaints Musculoskeletal: Musculoskeletal: Reports no additional musculoskeletal complaints Neurologic: Reports system reviewed and no additional complaints, except as documented Endocrine: Endocrine: Denies palpitations Allergic/Immunologic: Allergic/Immunologic: Reports wheezing PMFSH Past Medical History Medical History Trigeminal neuralgia Pulmonary nodules COPD (chronic obstructive pulmonary disease) Mixed hyperlipidemia Peripheral neuropathy Tobacco use disorder Mood disorder Surgical History Surgical History History of esophagogastroduodenoscopy (EGD) History of colonoscopy History of lumbar discectomy History of tubal ligation History of excision of mass History of shoulder surgery Social History Social History Household Members: Sp[facility] Do you presently have visiting nurse or other home services: No Alcohol intake: current Alcohol intake frequency: holidays/special occasions only Alcohol type: wine Patient Tobacco Use Status: Current everyday Tobacco user Tobacco use type: Cigarette Cigarette Packs Per Day: 1 Cigarettes Per Day: 20.0 Smoked in Last 30 Days: Yes e-Cigarette/Vaping Use: Never Used Patient Interested in Nicotine Replacement: No Second Hand Smoke Exposure: No Use of substances other than those prescribed or required for medical reasons: Yes Substance Use Type: Marijuana Substance Use Frequency: Occasionally Last Used Substance: Days (ago) Currently Displaying Signs/Symptoms of Drug Intoxication Withdrawal: No Any prior treatment program specific to substance use: No Have you been hit, kicked, punched, or otherwise hurt by someone within the past year? If so, by whom?: No Do you feel safe in your current relationship?: Yes Is there a partner from a previous relationship who is making you feel unsafe now?: No Are you made to feel afraid or neglected: No Advance Directives: Yes Advance Directives on File: Yes Advance Directives Date on File: 03/09/23 Do you have a plan to hurt others: No Plan Recently lost weight without trying: No Eating poorly because of decreased appetite: No Nutrition Risks: No Nutritional Risk Patient : No : No service: No Meds Allergies Allergy/AdvReac Type Severity Reaction Status Date / Time Iodinated Contrast Media Allergy Intermediate HIVES Verified 12/09/23 22:00 [IV CONTRAST] acetaminophen [From VICODIN] Allergy Unknown VOMITING Verified 12/09/23 22:00 hydrocodone [From VICODIN] Allergy Unknown VOMITING Verified 12/09/23 22:00 latex [LATEX] Allergy Unknown RASH Verified 12/09/23 22:00 oxycodone [From PERCOCET] Allergy Unknown VOMITING Verified 12/09/23 22:00 procaine [From Novocain] Allergy Unknown HIVES Verified 12/09/23 22:00 morphine [MORPHINE] AdvReac Unknown VOMITING Verified 12/09/23 22:00 Active Medications: Current Medications Acetaminophen/Butalbital/Caffeine (Butalb/Acetamin/Caff 50/325/40 Tablet) 1 tab PO DAILY PRN PRN Reason: Headache Hydrocodone Bitart/Acetaminophen (Hydrocodone Bit/Acetam 5/325 Tablet) 1 tab PO Q6H PRN PRN Reason: Pain, Moderate(Pain Scale 4-6) Last Admin: 12/11/23 10:00 Dose: 1 tab Albuterol Sulfate (Albuterol Sulfate (0.083%) 2.5 Mg/3 Ml Vial.Santa) 2.5 mg INHALE Q2H PRN PRN Reason: Wheezing Last Admin: 12/11/23 02:36 Dose: 2.5 mg Albuterol/Ipratropium (Albuterol/Iprat 2.5/0.5mg 3 Ml Ampul.Santa) 3 ml INHALE RQ4H WHILE AWAKE [facility] Last Admin: 12/11/23 11:21 Dose: 3 ml Aspirin (Aspirin Enteric Coated 81 Mg Tablet.) 81 mg PO DAILY [facility] Last Admin: 12/11/23 12:56 Dose: 81 mg Baclofen (Baclofen 10 Mg Tablet) 10 mg PO TID@0400,1300,2100 [facility] Last Admin: 12/11/23 13:08 Dose: 10 mg Duloxetine HCl (Duloxetine Hcl 60 Mg Capsule.) 60 mg PO BID@0400,2100 [facility] Last Admin: 12/11/23 04:13 Dose: 60 mg Enoxaparin Sodium (Enoxaparin Sodium 40 Mg/0.4 Ml Syringe) 40 mg SUBCUT Q24H [facility] Last Admin: 12/11/23 03:45 Dose: 40 mg Famotidine (Famotidine/Pf 20 Mg/2 Ml Vial) 20 mg IVPUSH DAILY [facility] Last Admin: 12/11/23 08:36 Dose: 20 mg Gabapentin (Gabapentin 400 Mg Capsule) 1,200 mg PO TID@0400,1300,2100 [facility] Last Admin: 12/11/23 13:08 Dose: 1,200 mg Ceftriaxone Sodium 1 gm/ (Sodium Chloride) 50 mls @ 100 mls/hr IV Q24H [facility] Last Infusion: 12/11/23 05:33 Dose: Infused Lorazepam (Lorazepam 1 Mg Tablet) 1 mg PO BID PRN PRN Reason: Anxiety Pt Own (Hyoscyamine (Sulfate 0.125 Mg)) 0.125 mg PO Q4H PRN PRN Reason: abdominal cramps Last Admin: 12/10/23 23:56 Dose: 0.125 mg Oxcarbazepine (Oxcarbazepine 300 Mg Tablet) 600 mg PO BID@0400,2100 [facility] Last Admin: 12/11/23 04:11 Dose: 600 mg Prazosin HCl (Prazosin Hcl 1 Mg Capsule) 2 mg PO BEDTIME [facility]; Protocol Last Admin: 12/10/23 21:11 Dose: 2 mg Prednisone (Prednisone 20 Mg Tablet) 40 mg PO DAILY [facility] Last Admin: 12/11/23 08:36 Dose: 40 mg Home Medications ?Medication ?Instructions ?Recorded ?Confirmed ?Last Taken ?Type atorvastatin 80 mg tablet 80 mg PO BEDTIME 03/04/23 12/10/23 12/09/23 21:00 History baclofen 10 mg tablet 10 mg PO TID 03/04/23 12/10/23 12/09/23 21:00 History [id number] 1 tab PO DAILY PRN Headache 03/04/23 12/10/23 12/09/23 21:00 History 50 mg-325 mg-40 mg tablet duloxetine 60 mg capsule,delayed 60 mg PO BID 03/04/23 12/10/23 12/09/23 21:00 History release gabapentin 300 mg capsule 1,200 mg PO TID 03/04/23 12/10/23 12/09/23 21:00 History hydrocodone 5 mg-acetaminophen 325 1 tab PO DAILY PRN Pain 03/04/23 12/10/23 12/09/23 21:00 History mg tablet hyoscyamine sulfate 0.125 mg tablet 0.125 - 0.25 mg PO Q4-6H PRN 03/04/23 12/10/23 12/09/23 21:00 History Abdominal Discomfort lorazepam 1 mg tablet 1 mg PO DAILY PRN Anxiety 03/04/23 12/10/23 12/09/23 21:00 History oxcarbazepine 600 mg tablet 600 mg PO BID 03/04/23 12/10/23 12/09/23 21:00 History Oxygen Home Use 04/16/23 Unknown History prazosin 2 mg capsule 2 mg PO BEDTIME 04/16/23 12/10/23 12/09/23 21:00 History albuterol sulfate 90 mcg/actuation 2 inh inhalation Q4H PRN shortness 11/15/23 12/10/23 12/09/23 21:00 History aerosol inhaler of breath or wheezing calcium carbonate 600 mg-vitamin 1 tab PO DAILY 11/15/23 12/10/23 12/09/23 21:00 History D3 5 mcg (200 unit) tablet Physical Exam 2 Vital Signs: Vital Signs: Last Vital Signs Temp 97.9 F 12/11/23 12:00 Pulse 89 12/11/23 12:00 Resp 18 12/11/23 12:00 BP 140/62 H 12/11/23 12:00 Pulse Ox 94 12/11/23 12:00 O2 Del Method Room Air 12/11/23 12:00 O2 Flow Rate 1 12/10/23 08:00 FiO2 28 12/11/23 04:00 BMI result Body Mass Index 30.6 Const: General: cooperative, comfortable, well developed, alert, awake and in distress mild and respiratory Nutritional Appearance: obese O rientation/consciousness: patient oriented x3 HEENT: Head: Yes normocephalic and Yes atraumatic Neck: Neck: Yes trachea midline, Yes supple and Yes no JVD Resp: Effort & Inspection: normal respiratory effort Auscultation: wheezes throughout Cardio: Jugular venous distension: no JVD Palpation: normal PMI Rate: r egular rate Rhythm: regular rhythm Heart sounds: S1 normal heart sound present, S2 normal heart sound present, no click, no gallops, Murmur heart sound present systolic early and no rubs GI: Auscultation: normal bowel sounds Skin: General skin exam: no rashes or lesions noted Neuro: General: patient oriented x3 and no focal motor deficits Extrem: General: Yes no clubbing, cyanosis or edema Objective Labs and Meds 12/11/23 07:48 12/11/23 07:48 Lab results: Laboratory Results - last 24 hr 12/10/23 12/11/23 13:16 07:48 WBC 12.7 H RBC 4.12 L Hgb 13.5 Hct 40.5 MCV 98.3 H MCH 32.8 MCHC 33.3 RDW 14.8 Plt Count 331 MPV 9.3 L Immature Gran % (Auto) 0.5 H Neut % (Auto) 91.8 H Lymph % (Auto) 5.3 L R[place] % (Auto) 2.0 Eos % (Auto) 0.2 Baso % (Auto) 0.2 Lymph # (Auto) 0.7 L [place] # (Auto) 0.3 Eos # (Auto) 0.0 Baso # (Auto) 0.0 Abs Immat Gran (auto) 0.07 H Absolute Neuts (auto) 11.7 H Absolute Nucleated RBC 0.000 Nucleated RBC % (auto) 0.0 Smear Tech's Comments VERIFIED Sodium 142 Potassium 4.2 Chloride 108 Carbon Dioxide 25 Anion Gap 13 BUN 12 Creatinine 0.72 Estim Creat Clear Calc 88.6 Estimated GFR > 60 Random Glucose 157 H Calcium 9.1 Troponin I High Sens 275.4 H* 486.4 H* D Assessment and Plan (1) NSTEMI (non-ST elevated myocardial infarction): Status: Acute NSTEMI which appears to be secondary to hypoxemic respiratory failure related to hypoxemia. She has at risk for underlying obstructive coronary artery disease given her multiple risk factors including hyperlipidemia, family history, smoking as well as prior stroke. She will require outpatient workup to rule out myocardial ischemia. Will schedule her for dobutamine myocardial perfusion imaging once her respiratory status has improved. Importance of complete risk factor modification and aggressive risk factor modification was discussed. Complete smoking cessation was advised. Will prescribe her aspirin as well as high-intensity statin therapy. Would avoid beta-blockers given her severe bronchospastic airway disease. Can give amlodipine for blood pressure control. Further follow-up as outpatient. Does not need treatment with IV heparin Thank you for allowing me to partake in her care Procedures Date of Service Date of Service: 12/11/23
[2023-12-11] MEDS: amLODIPine Besylate 5 MG TABLET PO (14:06)
[2023-12-11] MEDS: Prazosin HCL 1 MG CAPSULE 2 MG PO (22:18)
[2023-12-11] MEDS: LORazepam 1 MG TABLET PO (22:22)
[2023-12-12] VITALS (15 sets, daily range): BP systolic 120–170; BP diastolic 55–89; PULSE 7–110; RESP 15–28; TEMP 36.1–36.6; O2SAT 91–100
[2023-12-12] MEDS: Albuterol Sulfate (0.083%) 2.5 MG/3 ML VIAL.NEB INHALE ×2 (01:48→22:43)
[2023-12-12] MEDS: Enoxaparin Sodium 40 MG/0.4 ML SYRINGE SUBCUT (02:35)
[2023-12-12] MEDS: cefTRIAXone sodium 1 GM in 0.9 % Sodium Chloride 50 ML IV (02:36)
[2023-12-12] MEDS: guaiFEN/Codeine SF 200/20/10ML 10 ML LIQUID 5 ML PO ×4 (02:47→22:18)
[2023-12-12] MEDS: OXcarbazepine 300 MG TABLET 600 MG PO ×2 (03:37→21:55)
[2023-12-12] MEDS: Gabapentin 400 MG CAPSULE 1200 MG PO ×3 (03:39→21:54)
[2023-12-12] MEDS: DULoxetine HCl 60 MG CAPSULE.DR PO ×2 (03:41→21:55)
[2023-12-12] MEDS: Baclofen 10 MG TABLET PO ×3 (03:41→21:54)
[2023-12-12] MEDS: HYDROcodone Bit/Acetam 5/325 TABLET 1 TAB PO ×3 (03:49→18:05)
[2023-12-12] MEDS: Albuterol/Iprat 2.5/0.5MG 3 ML AMPUL.NEB INHALE ×4 (06:17→19:56)
--- NOTE | 2023-12-12 07:15 | P.PNIM_ITS ---
Subjective Subjective Date of Service: 12/12/23 Interval History: seen in follow up for acute hypoxic respiratory failure, copd exacerbation interval history Overnight sleep study results pending. Continues with overnight bronchospasm resulting in increased anxiety. significant wheezing, increased wob. No chest pain. Review of Systems Review of Systems: Yes all other systems are reviewed and are negative Physical Exam 2 Vital Signs: Vital Signs: Last Vital Signs Temp 97.3 F 12/12/23 04:00 Pulse 96 12/12/23 06:17 Resp 26 H 12/12/23 06:17 BP 135/60 12/12/23 04:00 Pulse Ox 92 12/12/23 04:00 O2 Del Method Room Air 12/12/23 04:00 O2 Flow Rate 1 12/10/23 08:00 FiO2 28 12/11/23 04:00 BMI result Body Mass Index 30.6 Constitutional - Awake and Alert, No apparent distress Eyes - PERRLA, EOMI Cardiovascular - S1S2, RRR, No edema Respiratory - Normal lung expansion, increased work of breathing with accessory muscle usage, diffuse bilateral expiratory wheezing Gastrointestinal - NT / ND; +BS; No rebound or guarding Extremities - no calf tenderness bilaterally, no swelling Skin - Warm/Dry Neurological - Alert & oriented x3 Psychological - anxious Objective Data Active Medications Acetaminophen/Butalbital/Caffeine (Butalb/Acetamin/Caff 50/325/40 Tablet) 1 tab PO DAILY PRN PRN Reason: Headache Hydrocodone Bitart/Acetaminophen (Hydrocodone Bit/Acetam 5/325 Tablet) 1 tab PO Q6H PRN PRN Reason: Pain, Moderate(Pain Scale 4-6) Last Admin: 12/12/23 03:49 Dose: 1 tab Documented By: PASHA Albuterol Sulfate (Albuterol Sulfate (0.083%) 2.5 Mg/3 Ml Vial.Neb) 2.5 mg INHALE Q2H PRN PRN Reason: Wheezing Last Admin: 12/12/23 01:48 Dose: 2.5 mg Documented By: VENICE Albuterol/Ipratropium (Albuterol/Iprat 2.5/0.5mg 3 Ml Ampul.Neb) 3 ml INHALE RQ4H WHILE AWAKE [place] Last Admin: 12/12/23 06:17 Dose: 3 ml Documented By: VENICE Amlodipine Besylate (Amlodipine Besylate 5 Mg Tablet) 5 mg PO DAILY [facility]; Protocol Last Admin: 12/11/23 14:06 Dose: 5 mg Documented By: KEELY Aspirin (Aspirin Enteric Coated 81 Mg Tablet.) 81 mg PO DAILY [facility] Last Admin: 12/11/23 12:56 Dose: 81 mg Documented By: KEELY Baclofen (Baclofen 10 Mg Tablet) 10 mg PO TID@0400,1300,2100 [facility] Last Admin: 12/12/23 03:41 Dose: 10 mg Documented By: PASHA Duloxetine HCl (Duloxetine Hcl 60 Mg Capsule.) 60 mg PO BID@0400,2100 [facility] Last Admin: 12/12/23 03:41 Dose: 60 mg Documented By: PASHA Enoxaparin Sodium (Enoxaparin Sodium 40 Mg/0.4 Ml Syringe) 40 mg SUBCUT Q24H [facility] Last Admin: 12/12/23 02:35 Dose: 40 mg Documented By: PASHA Famotidine (Famotidine/Pf 20 Mg/2 Ml Vial) 20 mg IVPUSH DAILY [facility] Last Admin: 12/11/23 08:36 Dose: 20 mg Documented By: KEELY Gabapentin (Gabapentin 400 Mg Capsule) 1,200 mg PO TID@0400,1300,2100 [facility] Last Admin: 12/12/23 03:39 Dose: 1,200 mg Documented By: PASHA Guaifenesin/Codeine Phosphate (Guaifen/Codeine Sf 200/20/10ml 10 Ml Liquid) 5 ml PO Q4H PRN PRN Reason: Cough Last Admin: 12/12/23 02:47 Dose: 5 ml Documented By: PASHA Ceftriaxone Sodium 1 gm/ (Sodium Chloride) 50 mls @ 100 mls/hr IV Q24H [facility] Last Infusion: 12/12/23 03:36 Dose: Infused Documented By: PASHA Lorazepam (Lorazepam 1 Mg Tablet) 1 mg PO BID PRN PRN Reason: Anxiety Last Admin: 12/11/23 22:22 Dose: 1 mg Documented By: PASHA Pt Own (Hyoscyamine (Sulfate 0.125 Mg)) 0.125 mg PO Q4H PRN PRN Reason: abdominal cramps Last Admin: 12/10/23 23:56 Dose: 0.125 mg Documented By: PASHA Oxcarbazepine (Oxcarbazepine 300 Mg Tablet) 600 mg PO BID@0400,2100 [facility] Last Admin: 12/12/23 03:37 Dose: 600 mg Documented By: PASHA Prazosin HCl (Prazosin Hcl 1 Mg Capsule) 2 mg PO BEDTIME [facility]; Protocol Last Admin: 12/11/23 22:18 Dose: 2 mg Documented By: PASHA Prednisone (Prednisone 20 Mg Tablet) 40 mg PO DAILY [facility] Last Admin: 12/11/23 08:36 Dose: 40 mg Documented By: KEELY Labs 12/11/23 07:48 12/11/23 07:48 Labs: Laboratory Results - last 24 hr 12/11/23 07:48 MCV 98.3 H MCH 32.8 MCHC 33.3 RDW 14.8 Plt Count 331 MPV 9.3 L Immature Gran % (Auto) 0.5 H Neut % (Auto) 91.8 H Lymph % (Auto) 5.3 L [place] % (Auto) 2.0 Eos % (Auto) 0.2 Baso % (Auto) 0.2 Lymph # (Auto) 0.7 L [place] # (Auto) 0.3 Eos # (Auto) 0.0 Baso # (Auto) 0.0 Abs Immat Gran (auto) 0.07 H Absolute Neuts (auto) 11.7 H Absolute Nucleated RBC 0.000 Nucleated RBC % (auto) 0.0 Smear Tech's Comments VERIFIED Anion Gap 13 Estim Creat Clear Calc 88.6 Estimated GFR > 60 Random Glucose 157 H Calcium 9.1 Troponin I High Sens 486.4 H* D Microbiology Microbiology Results: Microbiology 12/09/23 22:38 Blood Culture - Preliminary Blood - Venous No growth after 48 hours. 12/09/23 22:23 Blood Culture - Preliminary Blood - Venous No growth after 48 hours. Assessment and Plan (1) COPD exacerbation: Status: Resolved (2) Acute and chronic respiratory failure with hypoxia: Status: Resolved Plan 58-year-old female with history of hyperlipidemia, mood disorder, COPD with exercise hypoxemia and nocturnal hypoxemia, lacunar infarcts, PTSD, MVR, occipital neuralgia, tricuspid insufficiency, brain aneurysm, and right-sided sciatica admitted for COPD exacerbation with acute on chronic hypoxemic respiratory failure # COPD exacerbation with acute on chronic hypoxemic respiratory failure and respiratory- continues with overnight bronchospasm, now with increased wob, wheezing which is then complicated by anxiety which worsens symptoms -RPP negative, No pneumonia -Change PO prednisone to 40mg IV methylprednisolone TID (12/11) -iv mag -continue duonebs -Bipap this am for increased wob. Change to high flow per pulmonology -await overnight sleep study results -pulmonology consult -ativan prn #Elevated trops- likely Type 2 NSTEMI -trops 294-->271-->486 -echo without hypokinesis/akinesis -per cardiology, asa/statin, outpt MIBI #Mood disorder/anxiety -ativan increased to 1mg BID prn #HTN -continue minipress, norvasc and lasix #Occipital/trigeminal neuralgia- following parotid gland mass -continue baclofen, gabapenin, vicOdin #HLD -continue statin overweight -encouraged to lose weight ,cut down calories. dvt prophyalxis- lovenox full code need for inpt: acute copd exacerbation with severe bronchospasm still requiring prn bipap and changed to IV steroids due to significant wheezing with increased wob noted this morning and will request expert consultation PT is recommending STR and is agreable vs home with service, she's leaning to going home Quality Stroke Does the patient have a stroke diagnosis?: No VTE Prior VTE?: No VTE Risk Level:: Medical - moderate - high VTE Device Contraindication: N/A - Device Ordered VTE Drug Contraindication: N/A - Med Ordered
[2023-12-12] MEDS: LORazepam 2 MG/ML VIAL 1 MG IVPUSH (08:58)
[2023-12-12] MEDS: methylPREDNISolone Sod Succ 40 MG/ML VIAL IVPUSH ×2 (09:09→18:42)
[2023-12-12] MEDS: Famotidine/PF 20 MG/2 ML VIAL IVPUSH (09:09)
--- NOTE | 2023-12-12 09:21 | PC.NURSE ---
Anxious, increased work of breathing , shallow breath , medicated with lorazepam 1 mg IV as per MD order , BIPAP applied by RT
--- NOTE | 2023-12-12 11:14 | PM.CNPUL ---
History of Present Illness History of Present Illness Consult date: 12/12/23 Chief complaint: Hypoxic Resp Failure Narrative: This is an inpatient pulmonary consultation. The patient is a 58-year-old female with underlying history of tobacco use disorder, exercise related hypoxia nocturnal COPD and O2 dependence at 1 L nasal cannula, who was recently admitted and discharged from this hospital at the beginning of this month, has mood disorder, peripheral neuropathy, chronic back pain, anxiety, vitamin-D deficiency and prior recent episodes of hypoxic respiratory failure, who presented to the emergency room with complaints of shortness of breath for the past 24 hours.? Patient did admit having cough without any sputum production, no fever chills, no chest pain, no palpitations, arm or jaw pain, to her knowledge she does not have underlying history of coronary artery disease and has not had a heart attack in the past.? She has not traveled recently and has not been contact with anybody who is sick.? In the ER the patient was noted to be hypoxic at room air as low as 79 % although she is to use nasal cannula oxygen, given the respiratory distress and accessory muscle usage, the patient was placed on BiPAP with good improvement but according to ED physician a few hours after they try to wean her off BiPAP and they were not able to as the patient became hypoxic again therefore this was placed back on. The Patient did receive Solu-Medrol, albuterol nebulizers, magnesium and doxycycline.? Baseline ABG shows pH of 7.35, pCO2 of 50 2, PO2 69, HC03 29.? Other laboratories as described below.? Currently the patient states she feels a little better but she still feels has difficulty breathing and otherwise unable to give us history she is on BiPAP. She was then transferred to the floor on p.o. prednisone. She is having hard time with breathing. She was placed on BiPAP again although she has not demonstrating any evidence of hypercarbia right now. She does have increased work of breathing with significant wheezing and a very prolonged expiratory phase consistent with her COPD exacerbation. Review of Systems Constitutional: Constitutional: Reports no additional constitutional complaints Cardiovascular: Cardiovascular: Denies chest pain, Denies leg edema, Denies lightheadedness, Denies Loss of Consciousness, Denies palpitations and Reports dyspnea on exertion Respiratory: Respiratory: Reports cough, Reports excessive phlegm production, Reports dyspnea on exertion and Reports wheezing Gastrointestinal: Gastrointestinal: Reports no additional gastrointestinal complaints Musculoskeletal: Musculoskeletal: Reports no additional musculoskeletal complaints Neurologic: Reports system reviewed and no additional complaints, except as documented Endocrine: Endocrine: Denies palpitations Allergic/Immunologic: Allergic/Immunologic: Reports wheezing PMFSH Past Medical History Medical History (Updated 12/12/23 @ 11:20 by Denys Henriquez MD) Chronic hypercapnic respiratory failure Trigeminal neuralgia Pulmonary nodules COPD (chronic obstructive pulmonary disease) Mixed hyperlipidemia Peripheral neuropathy Tobacco use disorder Mood disorder Surgical History Surgical History History of esophagogastroduodenoscopy (EGD) History of colonoscopy History of lumbar discectomy History of tubal ligation History of excision of mass History of shoulder surgery Social History Social History Household Members: Spouse Housing: Condominium Do you presently have visiting nurse or other home services: No Alcohol intake: current Alcohol intake frequency: holidays/special occasions only Alcohol type: wine Patient Tobacco Use Status: Current everyday Tobacco user Tobacco use type: Cigarette Cigarette Packs Per Day: 1 Cigarettes Per Day: 20.0 Smoked in Last 30 Days: Yes e-Cigarette/Vaping Use: Never Used Patient Interested in Nicotine Replacement: No Second Hand Smoke Exposure: No Use of substances other than those prescribed or required for medical reasons: Yes Substance Use Type: Marijuana Substance Use Frequency: Occasionally Last Used Substance: Days (ago) Currently Displaying Signs/Symptoms of Drug Intoxication Withdrawal: No Any prior treatment program specific to substance use: No Have you been hit, kicked, punched, or otherwise hurt by someone within the past year? If so, by whom?: No Do you feel safe in your current relationship?: Yes Is there a partner from a previous relationship who is making you feel unsafe now?: No Are you made to feel afraid or neglected: No Advance Directives: Yes Advance Directives on File: Yes Advance Directives Date on File: 03/09/23 Do you have a plan to hurt others: No Plan Recently lost weight without trying: No Eating poorly because of decreased appetite: No Nutrition Risks: No Nutritional Risk Patient : No : No service: No Meds Allergies Allergy/AdvReac Type Severity Reaction Status Date / Time Iodinated Contrast Media Allergy Intermediate HIVES Verified 12/09/23 22:00 [IV CONTRAST] acetaminophen [From VICODIN] Allergy Unknown VOMITING Verified 12/09/23 22:00 hydrocodone [From VICODIN] Allergy Unknown VOMITING Verified 12/09/23 22:00 latex [LATEX] Allergy Unknown RASH Verified 12/09/23 22:00 oxycodone [From PERCOCET] Allergy Unknown VOMITING Verified 12/09/23 22:00 procaine [From Novocain] Allergy Unknown HIVES Verified 12/09/23 22:00 morphine [MORPHINE] AdvReac Unknown VOMITING Verified 12/09/23 22:00 Active Medications: Current Medications Acetaminophen/Butalbital/Caffeine (Butalb/Acetamin/Caff 50/325/40 Tablet) 1 tab PO DAILY PRN PRN Reason: Headache Hydrocodone Bitart/Acetaminophen (Hydrocodone Bit/Acetam 5/325 Tablet) 1 tab PO Q6H PRN PRN Reason: Pain, Moderate(Pain Scale 4-6) Last Admin: 12/12/23 03:49 Dose: 1 tab Albuterol Sulfate (Albuterol Sulfate (0.083%) 2.5 Mg/3 Ml Vial.Neb) 2.5 mg INHALE Q2H PRN PRN Reason: Wheezing Last Admin: 12/12/23 01:48 Dose: 2.5 mg Albuterol/Ipratropium (Albuterol/Iprat 2.5/0.5mg 3 Ml Ampul.Neb) 3 ml INHALE RQ4H WHILE AWAKE [facility] Last Admin: 12/12/23 09:51 Dose: 3 ml Amlodipine Besylate (Amlodipine Besylate 5 Mg Tablet) 5 mg PO DAILY [facility]; Protocol Last Admin: 12/11/23 14:06 Dose: 5 mg Aspirin (Aspirin Enteric Coated 81 Mg Tablet.) 81 mg PO DAILY [facility] Last Admin: 12/11/23 12:56 Dose: 81 mg Baclofen (Baclofen 10 Mg Tablet) 10 mg PO TID@0400,1300,2100 [facility] Last Admin: 12/12/23 03:41 Dose: 10 mg Duloxetine HCl (Duloxetine Hcl 60 Mg Capsule.) 60 mg PO BID@0400,2100 [facility] Last Admin: 12/12/23 03:41 Dose: 60 mg Enoxaparin Sodium (Enoxaparin Sodium 40 Mg/0.4 Ml Syringe) 40 mg SUBCUT Q24H [facility] Last Admin: 12/12/23 02:35 Dose: 40 mg Famotidine (Famotidine/Pf 20 Mg/2 Ml Vial) 20 mg IVPUSH DAILY [facility] Last Admin: 12/12/23 09:09 Dose: 20 mg Gabapentin (Gabapentin 400 Mg Capsule) 1,200 mg PO TID@0400,1300,2100 [facility] Last Admin: 12/12/23 03:39 Dose: 1,200 mg Guaifenesin/Codeine Phosphate (Guaifen/Codeine Sf 200/20/10ml 10 Ml Liquid) 5 ml PO Q4H PRN PRN Reason: Cough Last Admin: 12/12/23 02:47 Dose: 5 ml Ceftriaxone Sodium 1 gm/ (Sodium Chloride) 50 mls @ 100 mls/hr IV Q24H [facility] Last Infusion: 12/12/23 03:36 Dose: Infused Magnesium Sulfate (Magnesium Sulfate/H2o) 2 gm in 50 mls @ 25 mls/hr IV ONCE ONE Stop: 12/12/23 13:06 Lorazepam (Lorazepam 1 Mg Tablet) 1 mg PO BID PRN PRN Reason: Anxiety Last Admin: 12/11/23 22:22 Dose: 1 mg Methylprednisolone Sodium Succinate (Methylprednisolone Sod Succ 125 Mg/2 Ml Vial) 80 mg IVPUSH ONCE ONE Stop: 12/12/23 11:12 Methylprednisolone Sodium Succinate (Methylprednisolone Sod Succ 40 Mg/Ml Vial) 40 mg IVPUSH Q12H [facility] Pt Own (Hyoscyamine (Sulfate 0.125 Mg)) 0.125 mg PO Q4H PRN PRN Reason: abdominal cramps Last Admin: 12/10/23 23:56 Dose: 0.125 mg Oxcarbazepine (Oxcarbazepine 300 Mg Tablet) 600 mg PO BID@0400,2100 [facility] Last Admin: 12/12/23 03:37 Dose: 600 mg Prazosin HCl (Prazosin Hcl 1 Mg Capsule) 2 mg PO BEDTIME [facility]; Protocol Last Admin: 12/11/23 22:18 Dose: 2 mg Home Medications ?Medication ?Instructions ?Recorded ?Confirmed ?Last Taken ?Type atorvastatin 80 mg tablet 80 mg PO BEDTIME 03/04/23 12/10/23 12/09/23 21:00 History baclofen 10 mg tablet 10 mg PO TID 03/04/23 12/10/23 12/09/23 21:00 History vprpynibic-zzryydxdrekff-aapenxoc 1 tab PO DAILY PRN Headache 03/04/23 12/10/23 12/09/23 21:00 History 50 mg-325 mg-40 mg tablet duloxetine 60 mg capsule,delayed 60 mg PO BID 03/04/23 12/10/23 12/09/23 21:00 History release gabapentin 300 mg capsule 1,200 mg PO TID 03/04/23 12/10/23 12/09/23 21:00 History hydrocodone 5 mg-acetaminophen 325 1 tab PO DAILY PRN Pain 03/04/23 12/10/23 12/09/23 21:00 History mg tablet hyoscyamine sulfate 0.125 mg tablet 0.125 - 0.25 mg PO Q4-6H PRN 03/04/23 12/10/23 12/09/23 21:00 History Abdominal Discomfort lorazepam 1 mg tablet 1 mg PO DAILY PRN Anxiety 03/04/23 12/10/23 12/09/23 21:00 History oxcarbazepine 600 mg tablet 600 mg PO BID 03/04/23 12/10/23 12/09/23 21:00 History Oxygen Home Use 04/16/23 Unknown History prazosin 2 mg capsule 2 mg PO BEDTIME 04/16/23 12/10/23 12/09/23 21:00 History albuterol sulfate 90 mcg/actuation 2 inh inhalation Q4H PRN shortness 11/15/23 12/10/23 12/09/23 21:00 History aerosol inhaler of breath or wheezing calcium carbonate 600 mg-vitamin 1 tab PO DAILY 11/15/23 12/10/23 12/09/23 21:00 History D3 5 mcg (200 unit) tablet Physical Exam Vital Signs: Vital Signs: Last Vital Signs Temp 97.6 F 12/12/23 08:00 Pulse 110 H 12/12/23 09:52 Resp 22 H 12/12/23 09:52 BP 170/89 H 12/12/23 08:00 Pulse Ox 92 12/12/23 08:00 O2 Del Method Nasal Cannula 12/12/23 08:00 O2 Flow Rate 2 12/12/23 08:00 FiO2 28 12/11/23 04:00 BMI result Body Mass Index 30.6 Const: General: alert Limitations: other limitations (on BIPAP mask) HEENT: Head: Yes normocephalic and Yes atraumatic Neck: Neck: Yes trachea midline, Yes supple and Yes no JVD Chest: Chest palpation & inspection: normal inspection of the chest Resp: Effort & Inspection: prolonged expiratory phase Auscultation: wheezes throughout and diminished lung sounds Cardio: Rate: regular rate Rhythm: regular rhythm Heart sounds: S1 normal heart sound present, S2 normal heart sound present, no gallops and Murmur heart sound present systolic early GI: Auscultation: normal bowel sounds Skin: General skin exam: no rashes or lesions noted Neuro: General: no focal motor deficits Extrem: General: Yes no clubbing, cyanosis or edema Results Laboratory Findings 12/11/23 07:48 12/11/23 07:48 ABG, PT/INR, D-dimer: PT/INR, D-dimer PT 10.1 SEC (11.1-13.3) L 12/09/23 22:38 INR 0.8 (0.9-1.1) L 12/09/23 22:38 Abnormal lab findings: Abnormal Labs 12/09/23 12/09/23 12/09/23 22:14 22:32 22:37 WBC 14.6 H RBC MCV MPV 9.2 L Immature Gran % (Auto) Neut % (Auto) Lymph % (Auto) 18.7 L [place] % (Auto) Lymph # (Auto) [place] # (Auto) Abs Immat Gran (auto) 0.05 H Absolute Neuts (auto) 10.5 H PT INR ABG pCO2 at Pt Temp 52 H ABG pO2 at Pt Temp 69 L ABG HCO3 29 H VBG HCO3 28 H Chloride 109 H Random Glucose 187 H Troponin I High Sens 104.3 H* D 12/09/23 12/10/23 12/10/23 22:38 01:16 04:42 WBC RBC MCV MPV 9.3 L Immature Gran % (Auto) Neut % (Auto) 96.8 H Lymph % (Auto) 2.4 L [place] % (Auto) 0.4 L Lymph # (Auto) 0.2 L [place] # (Auto) 0.0 L Abs Immat Gran (auto) Absolute Neuts (auto) 8.8 H PT 10.1 L INR 0.8 L ABG pCO2 at Pt Temp ABG pO2 at Pt Temp ABG HCO3 VBG HCO3 Chloride 109 H Random Glucose 181 H Troponin I High Sens 267.3 H* D 294.5 H* 12/10/23 12/11/23 13:16 07:48 WBC 12.7 H RBC 4.12 L MCV 98.3 H MPV 9.3 L Immature Gran % (Auto) 0.5 H Neut % (Auto) 91.8 H Lymph % (Auto) 5.3 L [place] % (Auto) Lymph # (Auto) 0.7 L [place] # (Auto) Abs Immat Gran (auto) 0.07 H Absolute Neuts (auto) 11.7 H PT INR ABG pCO2 at Pt Temp ABG pO2 at Pt Temp ABG HCO3 VBG HCO3 Chloride Random Glucose 157 H Troponin I High Sens 275.4 H* 486.4 H* D Microbiology: Microbiology 12/09/23 22:38 Blood - Venous Blood Culture - Preliminary No growth after 48 hours. 12/09/23 22:23 Blood - Venous Blood Culture - Preliminary No growth after 48 hours. Assessment and Plan (1) Acute exacerbation of chronic obstructive airways disease: Status: Acute (2) Chronic hypercapnic respiratory failure: Status: Acute (3) Acute hypoxemic respiratory failure: Status: Resolved Plan Agree with change to Solu-Medrol. Will give Solu-Medrol 125 mg IV x1 now Albuterol 10 mg x 1 now continue with nebulizer therapy every 4 hours and every 2 hours as needed 2 g of magnesium sulfate IV x1 Continue with cardioprotective medications as per Cardiology Would benefit from checking another blood gas venous gas is okay. If she demonstrates any evidence of any acute on chronic hypercarbic respiratory failure she will need to go back to the unit. The patient would benefit from high-flow to provide her with some degree peep to help her with her obstructive airway disease and work of breathing. It could also help loosen some mucus for bronchopulmonary hygiene Procedures Date of Service Date of Service: 12/12/23
[2023-12-12 11:29] LABS: Venous Blood Gas Refer to POC result
[2023-12-12 11:31] LABS: VBG Base Excess 4.7 mmol/L; VBG HCO3 30 mmol/L (22-26); VBG pCO2 48 mmHg; VBG pO2 95 mmHg
[2023-12-12] MEDS: Aspirin Enteric Coated 81 MG TABLET.DR PO (11:42)
[2023-12-12] MEDS: methylPREDNISolone Sod Succ 125 MG/2 ML VIAL 80 MG IVPUSH (11:43)
[2023-12-12] MEDS: amLODIPine Besylate 5 MG TABLET PO (11:43)
[2023-12-12] MEDS: Magnesium Sulfate/H2O 2 GM/50 ML PIGGYBACK IV (11:45)
[2023-12-12] MEDS: Prazosin HCL 1 MG CAPSULE 2 MG PO (21:54)
[2023-12-12] MEDS: LORazepam 1 MG TABLET PO (22:08)
[2023-12-13] VITALS (13 sets, daily range): BP systolic 132–158; BP diastolic 65–92; PULSE 75–94; RESP 15–22; TEMP 36.2–36.4; O2SAT 90–99
[2023-12-13] MEDS: cefTRIAXone sodium 1 GM in 0.9 % Sodium Chloride 50 ML IV (03:23)
[2023-12-13] MEDS: Enoxaparin Sodium 40 MG/0.4 ML SYRINGE SUBCUT (03:23)
[2023-12-13] MEDS: Baclofen 10 MG TABLET PO ×3 (05:30→20:51)
[2023-12-13] MEDS: methylPREDNISolone Sod Succ 40 MG/ML VIAL IVPUSH ×2 (05:30→17:58)
[2023-12-13] MEDS: OXcarbazepine 300 MG TABLET 600 MG PO ×2 (05:30→20:51)
[2023-12-13] MEDS: Gabapentin 400 MG CAPSULE 1200 MG PO ×3 (05:30→20:50)
[2023-12-13] MEDS: DULoxetine HCl 60 MG CAPSULE.DR PO ×2 (05:30→20:51)
[2023-12-13] MEDS: HYDROcodone Bit/Acetam 5/325 TABLET 1 TAB PO ×2 (05:40→13:26)
[2023-12-13 06:57] LABS: Anion Gap 14 (12-20); Blood Urea Nitrogen 11 mg/dL (9-16); Calcium 9.8 mg/dL (8.4-10.2); Carbon Dioxide 28 mmol/L (22-29); Chloride 104 mmol/L (96-108); Creatinine Clr Calc Pharmacy 95.2; Estimated Glomerular Filt Rate > 60; Glucose Random 121 mg/dL (60-115); Potassium 4.4 mmol/L (3.3-5.1); Sodium 142 mmol/L (135-145)
[2023-12-13] MEDS: Albuterol/Iprat 2.5/0.5MG 3 ML AMPUL.NEB INHALE ×4 (08:25→19:57)
[2023-12-13] MEDS: Aspirin Enteric Coated 81 MG TABLET.DR PO (08:57)
[2023-12-13] MEDS: Famotidine/PF 20 MG/2 ML VIAL IVPUSH (08:57)
[2023-12-13] MEDS: amLODIPine Besylate 5 MG TABLET PO (08:57)
[2023-12-13] MEDS: guaiFEN/Codeine SF 200/20/10ML 10 ML LIQUID 5 ML PO ×2 (09:10→20:51)
--- NOTE | 2023-12-13 10:21 | MHC.CM.PN ---
Per ROUNDS discussion, Patient is still on high flow O2 and is not yet medically cleared for dc. Home/resume home O2 & HVNA is the goal and CM will continue to follow.
--- NOTE | 2023-12-13 10:44 | P.PNIM_ITS ---
Subjective Subjective Date of Service: 12/13/23 Interval History: seen in follow up for acute hypoxic respiratory failure, copd exacerbation interval history Overnight sleep study results pending. Continues with overnight bronchospasm resulting in increased anxiety. significant wheezing, increased wob. No chest pain. Review of Systems Review of Systems: Yes all other systems are reviewed and are negative Physical Exam 2 Vital Signs: Vital Signs: Last Vital Signs Temp 97.2 F 12/13/23 08:00 Pulse 81 12/13/23 08:29 Resp 16 12/13/23 08:30 BP 148/92 H 12/13/23 08:57 Pulse Ox 97 12/13/23 08:00 O2 Del Method High Flow Nasal C annula 12/13/23 08:00 O2 Flow Rate 40 12/13/23 08:00 FiO2 30 12/13/23 08:00 BMI result Body Mass Index 30.6 Appearing in no acute distress High flow lung sounds are clear to auscultation heart regular rate rhythm, clear S1, S2 positive bowel sounds, abdomen is soft, nontender neuro patient is alert x3, no focal deficits Objective Data Active Medications Acetaminophen/Butalbital/Caffeine (Butalb/Acetamin/Caff 50/325/40 Tablet) 1 tab PO DAILY PRN PRN Reason: Headache Hydrocodone Bitart/Acetaminophen (Hydrocodone Bit/Acetam 5/325 Tablet) 1 tab PO Q6H PRN PRN Reason: Pain, Moderate(Pain Scale 4-6) Last Admin: 12/13/23 05:40 Dose: 1 tab Documented By: KURT Albuterol Sulfate (Albuterol Sulfate (0.083%) 2.5 Mg/3 Ml Vial.Neb) 2.5 mg INHALE Q2H PRN PRN Reason: Wheezing Last Admin: 12/12/23 22:43 Dose: 2.5 mg Documented By: WILL Albuterol/Ipratropium (Albuterol/Iprat 2.5/0.5mg 3 Ml Ampul.Neb) 3 ml INHALE RQ4H WHILE AWAKE [facility] Last Admin: 12/13/23 08:25 Dose: 3 ml Documented By: FRANCHESCA Amlodipine Besylate (Amlodipine Besylate 5 Mg Tablet) 5 mg PO DAILY [facility]; Protocol Last Admin: 12/13/23 08:57 Dose: 5 mg Documented By: SHARON Aspirin (Aspirin Enteric Coated 81 Mg Tablet.) 81 mg PO DAILY [facility] Last Admin: 12/13/23 08:57 Dose: 81 mg Documented By: SHARON Baclofen (Baclofen 10 Mg Tablet) 10 mg PO TID@0400,1300,2100 [facility] Last Admin: 12/13/23 05:30 Dose: 10 mg Documented By: KURT Duloxetine HCl (Duloxetine Hcl 60 Mg Capsule.) 60 mg PO BID@0400,2100 [facility] Last Admin: 12/13/23 05:30 Dose: 60 mg Documented By: KURT Enoxaparin Sodium (Enoxaparin Sodium 40 Mg/0.4 Ml Syringe) 40 mg SUBCUT Q24H [facility] Last Admin: 12/13/23 03:23 Dose: 40 mg Documented By: KURT Famotidine (Famotidine/Pf 20 Mg/2 Ml Vial) 20 mg IVPUSH DAILY [facility] Last Admin: 12/13/23 08:57 Dose: 20 mg Documented By: SHARON Gabapentin (Gabapentin 400 Mg Capsule) 1,200 mg PO TID@0400,1300,2100 [facility] Last Admin: 12/13/23 05:30 Dose: 1,200 mg Documented By: KURT Guaifenesin/Codeine Phosphate (Guaifen/Codeine Sf 200/20/10ml 10 Ml Liquid) 5 ml PO Q4H PRN PRN Reason: Cough Last Admin: 12/13/23 09:10 Dose: 5 ml Documented By: SHARON Ceftriaxone Sodium 1 gm/ (Sodium Chloride) 50 mls @ 100 mls/hr IV Q24H [facility] Last Infusion: 12/13/23 05:41 Dose: Infused Documented By: KURT Lorazepam (Lorazepam 1 Mg Tablet) 1 mg PO BID PRN PRN Reason: Anxiety Last Admin: 12/12/23 22:08 Dose: 1 mg Documented By: KURT Methylprednisolone Sodium Succinate (Methylprednisolone Sod Succ 40 Mg/Ml Vial) 40 mg IVPUSH Q12H [facility] Last Admin: 12/13/23 05:30 Dose: 40 mg Documented By: KURT Pt Own (Hyoscyamine (Sulfate 0.125 Mg)) 0.125 mg PO Q4H PRN PRN Reason: abdominal cramps Last Admin: 12/10/23 23:56 Dose: 0.125 mg Documented By: PASHA Oxcarbazepine (Oxcarbazepine 300 Mg Tablet) 600 mg PO BID@0400,2100 [facility] Last Admin: 12/13/23 05:30 Dose: 600 mg Documented By: KURT Prazosin HCl (Prazosin Hcl 1 Mg Capsule) 2 mg PO BEDTIME [facility]; Protocol Last Admin: 12/12/23 21:54 Dose: 2 mg Documented By: KURT Labs 12/11/23 07:48 12/13/23 06:09 Labs: Laboratory Results - last 24 hr 12/12/23 12/13/23 11:20 06:09 Hold Purple Top SEE NOTE VBG pH 7.40 VBG pCO2 48 VBG pO2 95 VBG HCO3 30 H VBG O2 Saturation 99.0 VBG Base Excess 4.7 Anion Gap 14 Estim Creat Clear Calc 95.2 Estimated GFR > 60 Random Glucose 121 H Calcium 9.8 D Assessment and Plan (1) COPD exacerbation: Status: Resolved (2) Acute and chronic respiratory failure with hypoxia: Status: Resolved Plan 58-year-old female with history of hyperlipidemia, mood disorder, COPD with exercise hypoxemia and nocturnal hypoxemia, lacunar infarcts, PTSD, MVR, occipital neuralgia, tricuspid insufficiency, brain aneurysm, and right-sided sciatica admitted for COPD exacerbation with acute on chronic hypoxemic respiratory failure COPD exacerbation with acute on chronic hypoxemic respiratory failure and respiratory- continues with overnight bronchospasm, now with increased wob, wheezing which is then complicated by anxiety which worsens symptoms RPP negative, No pneumonia PO prednisone continue duonebs s/p Bipap await overnight sleep study results pulmonology following wean off high flow to [place] to keep sats >90% ativan prn Elevated trops secondary to demand trops 294-->271-->486 echo without hypokinesis/akinesis per cardiology, asa/statin, outpt MIBI Mood disorder/anxiety ativan increased to 1mg BID prn HTN continue minipress, norvasc and lasix Occipital/trigeminal neuralgia- following parotid gland mass continue baclofen, gabapenin, vicOdin HLD continue statin overweight -encouraged to lose weight ,cut down calories. dvt prophyalxis- lovenox attending Dr. Mehta full code need for inpt: acute copd exacerbation with severe bronchospasm still requiring prn bipap and changed to IV steroids due to significant wheezing with increased wob noted this morning and will request expert consultation PT is recommending STR and is agreable vs home with service, she's leaning to going home Quality Stroke Does the patient have a stroke diagnosis?: No VTE Prior VTE?: No VTE Risk Level:: Medical - moderate - high VTE Device Contraindication: N/A - Device Ordered VTE Drug Contraindication: N/A - Med Ordered
[2023-12-13] MEDS: Prazosin HCL 1 MG CAPSULE 2 MG PO (20:50)
[2023-12-13] MEDS: LORazepam 1 MG TABLET PO (20:53)
[2023-12-14] VITALS (12 sets, daily range): BP systolic 134–170; BP diastolic 65–84; PULSE 76–108; RESP 18–24; TEMP 36.1–36.9; O2SAT 92–98
[2023-12-14] MEDS: HYDROcodone Bit/Acetam 5/325 TABLET 1 TAB PO ×4 (01:19→20:20)
[2023-12-14] MEDS: Enoxaparin Sodium 40 MG/0.4 ML SYRINGE SUBCUT (03:28)
[2023-12-14] MEDS: guaiFEN/Codeine SF 200/20/10ML 10 ML LIQUID 5 ML PO ×4 (03:28→20:20)
[2023-12-14] MEDS: cefTRIAXone sodium 1 GM in 0.9 % Sodium Chloride 50 ML IV (03:28)
[2023-12-14] MEDS: OXcarbazepine 300 MG TABLET 600 MG PO ×2 (04:20→20:04)
[2023-12-14] MEDS: DULoxetine HCl 60 MG CAPSULE.DR PO ×2 (04:20→20:03)
[2023-12-14] MEDS: Baclofen 10 MG TABLET PO ×3 (04:20→20:03)
[2023-12-14] MEDS: bisacodyL 5 MG TABLET.DR PO (04:20)
[2023-12-14] MEDS: Gabapentin 400 MG CAPSULE 1200 MG PO ×3 (04:27→20:03)
[2023-12-14] MEDS: Albuterol/Iprat 2.5/0.5MG 3 ML AMPUL.NEB INHALE ×4 (06:19→19:55)
[2023-12-14] MEDS: methylPREDNISolone Sod Succ 40 MG/ML VIAL IVPUSH (06:34)
[2023-12-14] MEDS: predniSONE 20 MG TABLET 40 MG PO (07:49)
[2023-12-14] MEDS: Aspirin Enteric Coated 81 MG TABLET.DR PO (07:50)
[2023-12-14] MEDS: Famotidine/PF 20 MG/2 ML VIAL IVPUSH (07:51)
[2023-12-14] MEDS: amLODIPine Besylate 5 MG TABLET PO (07:51)
--- NOTE | 2023-12-14 09:42 | HO.PM.IMPN ---
Subjective Subjective Date of Service: 12/14/23 Interval History: seen in follow up for acute hypoxic respiratory failure, copd exacerbation Overnight sleep study results still pending. off high flow on 2lnc Review of Systems Review of Systems: Yes all other systems are reviewed and are negative Physical Exam Vital Signs: Vital Signs: Last Vital Signs Temp 97.1 F 12/14/23 07:36 Pulse 83 12/14/23 07:36 Resp 20 12/14/23 07:36 BP 139/77 12/14/23 07:51 Pulse Ox 95 12/14/23 07:36 O2 Del Method Nasal Cannula 12/14/23 07:36 O2 Flow Rate 2 12/14/23 07:36 FiO2 30 12/13/23 11:35 BMI result Body Mass Index 30.6 Appearing in no acute distress lung sounds are clear to auscultation heart regular rate rhythm, clear S1, S2 positive bowel sounds, abdomen is soft, nontender neuro patient is alert x3, no focal deficits Objective Data Active Medications Acetaminophen/Butalbital/Caffeine (Butalb/Acetamin/Caff 50/325/40 Tablet) 1 tab PO DAILY PRN PRN Reason: Headache Hydrocodone Bitart/Acetaminophen (Hydrocodone Bit/Acetam 5/325 Tablet) 1 tab PO Q6H PRN PRN Reason: Pain, Moderate(Pain Scale 4-6) Last Admin: 12/14/23 08:06 Dose: 1 tab Documented By: MARC Albuterol Sulfate (Albuterol Sulfate (0.083%) 2.5 Mg/3 Ml Vial.Neb) 2.5 mg INHALE Q2H PRN PRN Reason: Wheezing Last Admin: 12/12/23 22:43 Dose: 2.5 mg Documented By: WILL Albuterol/Ipratropium (Albuterol/Iprat 2.5/0.5mg 3 Ml Ampul.Neb) 3 ml INHALE RQ4H WHILE AWAKE [facility] Last Admin: 12/14/23 06:19 Dose: 3 ml Documented By: KWABENA Amlodipine Besylate (Amlodipine Besylate 5 Mg Tablet) 5 mg PO DAILY [facility]; Protocol Last Admin: 12/14/23 07:51 Dose: 5 mg Documented By: MARC Aspirin (Aspirin Enteric Coated 81 Mg Tablet.) 81 mg PO DAILY [facility] Last Admin: 12/14/23 07:50 Dose: 81 mg Documented By: MARC Atorvastatin Calcium (Atorvastatin Calcium 80 Mg Tablet) 80 mg PO BEDTIME [facility] Baclofen (Baclofen 10 Mg Tablet) 10 mg PO TID@0400,1300,2100 [facility] Last Admin: 12/14/23 04:20 Dose: 10 mg Documented By: KURT Duloxetine HCl (Duloxetine Hcl 60 Mg Capsule.Dr) 60 mg PO BID@0400,2100 [facility] Last Admin: 12/14/23 04:20 Dose: 60 mg Documented By: KURT Enoxaparin Sodium (Enoxaparin Sodium 40 Mg/0.4 Ml Syringe) 40 mg SUBCUT Q24H [facility] Last Admin: 12/14/23 03:28 Dose: 40 mg Documented By: KURT Famotidine (Famotidine/Pf 20 Mg/2 Ml Vial) 20 mg IVPUSH DAILY [facility] Last Admin: 12/14/23 07:51 Dose: 20 mg Documented By: MARC Gabapentin (Gabapentin 400 Mg Capsule) 1,200 mg PO TID@0400,1300,2100 [facility] Last Admin: 12/14/23 04:27 Dose: 1,200 mg Documented By: KURT Guaifenesin/Codeine Phosphate (Guaifen/Codeine Sf 200/20/10ml 10 Ml Liquid) 5 ml PO Q4H PRN PRN Reason: Cough Last Admin: 12/14/23 08:06 Dose: 5 ml Documented By: MARC Ceftriaxone Sodium 1 gm/ (Sodium Chloride) 50 mls @ 100 mls/hr IV Q24H [facility] Last Infusion: 12/14/23 04:23 Dose: Infused Documented By: KURT Lorazepam (Lorazepam 1 Mg Tablet) 1 mg PO BID PRN PRN Reason: Anxiety Last Admin: 12/13/23 20:53 Dose: 1 mg Documented By: KURT Pt Own (Hyoscyamine (Sulfate 0.125 Mg)) 0.125 mg PO Q4H PRN PRN Reason: abdominal cramps Last Admin: 12/10/23 23:56 Dose: 0.125 mg Documented By: PASHA Oxcarbazepine (Oxcarbazepine 300 Mg Tablet) 600 mg PO BID@0400,2100 [facility] Last Admin: 12/14/23 04:20 Dose: 600 mg Documented By: KURT Prazosin HCl (Prazosin Hcl 1 Mg Capsule) 2 mg PO BEDTIME [facility]; Protocol Last Admin: 12/13/23 20:50 Dose: 2 mg Documented By: KURT Prednisone (Prednisone 20 Mg Tablet) 40 mg PO DAILY [facility] Last Admin: 12/14/23 07:49 Dose: 40 mg Documented By: MARC Labs 12/11/23 07:48 12/13/23 06:09 Assessment and Plan (1) COPD exacerbation: Status: Resolved (2) Acute and chronic respiratory failure with hypoxia: Status: Resolved Plan 58-year-old female with history of hyperlipidemia, mood disorder, COPD with exercise hypoxemia and nocturnal hypoxemia, lacunar infarcts, PTSD, MVR, occipital neuralgia, tricuspid insufficiency, brain aneurysm, and right-sided sciatica admitted for COPD exacerbation with acute on chronic hypoxemic respiratory failure COPD exacerbation with acute on chronic hypoxemic respiratory failure RPP negative, No pneumonia s/p Bipap and high flow overnight sleep study results pending pulmonology following [place] to keep sats >90% ativan prn PO prednisone continue duonebs Elevated trops secondary to demand/NSTEMI trops 294-->271-->486 echo without hypokinesis/akinesis per cardiology, asa/statin, outpt MIBI Mood disorder/anxiety ativan increased to 1mg BID prn HTN continue minipress, norvasc and lasix Occipital/trigeminal neuralgia continue baclofen, gabapenin, vicodin HLD continue statin Obesity. BMI 30.6 Discussed importance of weight management as this may be contributing to worsening of other comorbidities dvt prophyalxis- denil[facility] attending Dr. Mehta full code DISPO home when medically clear Quality Stroke Does the patient have a stroke diagnosis?: No VTE Prior VTE?: No VTE Risk Level:: Medical - moderate - high VTE Device Contraindication: N/A - Device Ordered VTE Drug Contraindication: N/A - Med Ordered
--- NOTE | 2023-12-14 11:18 | MHC.CM.PN ---
CM met with Patient at bedside. Patient stated that she does not want to be dc'd tomorrow; she wants the Cardiology study done and to wait for the results of the sleep study. Patient indicated that her is having surgery next week and she has to be well to take care of him. Patient states that she has had, 2 significant crashes at night and 2 admissions for the same reason in the last 2 and a half weeks and doesn't want a third re-admission. CM relayed this information to [employer]/Giulia. CM will follow.
[2023-12-14] MEDS: LORazepam 1 MG TABLET PO (16:21)
[2023-12-14] MEDS: Prazosin HCL 1 MG CAPSULE 2 MG PO (20:03)
[2023-12-14] MEDS: Atorvastatin Calcium 80 MG TABLET PO (20:03)
[2023-12-15] VITALS (10 sets, daily range): BP systolic 125–160; BP diastolic 62–82; PULSE 78–95; RESP 16–20; TEMP 36.1–36.7; O2SAT 94–99
[2023-12-15] MEDS: cefTRIAXone sodium 1 GM in 0.9 % Sodium Chloride 50 ML IV (04:09)
[2023-12-15] MEDS: Enoxaparin Sodium 40 MG/0.4 ML SYRINGE SUBCUT (04:14)
[2023-12-15] MEDS: Baclofen 10 MG TABLET PO ×3 (04:21→20:59)
[2023-12-15] MEDS: DULoxetine HCl 60 MG CAPSULE.DR PO ×2 (04:22→20:59)
[2023-12-15] MEDS: Gabapentin 400 MG CAPSULE 1200 MG PO ×3 (04:22→20:58)
[2023-12-15] MEDS: OXcarbazepine 300 MG TABLET 600 MG PO ×2 (04:23→20:59)
[2023-12-15] MEDS: HYDROcodone Bit/Acetam 5/325 TABLET 1 TAB PO ×2 (04:30→20:59)
[2023-12-15] MEDS: LORazepam 1 MG TABLET PO ×2 (04:32→21:00)
[2023-12-15] MEDS: guaiFEN/Codeine SF 200/20/10ML 10 ML LIQUID 5 ML PO ×2 (04:32→13:47)
[2023-12-15] MEDS: Albuterol/Iprat 2.5/0.5MG 3 ML AMPUL.NEB INHALE ×4 (07:27→19:34)
[2023-12-15] MEDS: Aspirin Enteric Coated 81 MG TABLET.DR PO (09:02)
[2023-12-15] MEDS: predniSONE 20 MG TABLET 40 MG PO (09:02)
[2023-12-15] MEDS: amLODIPine Besylate 5 MG TABLET PO (09:02)
[2023-12-15] MEDS: Famotidine/PF 20 MG/2 ML VIAL IVPUSH (09:03)
[2023-12-15] MEDS: Meclizine HCl 25 MG TABLET PO (09:03)
--- NOTE | 2023-12-15 10:15 | MHC.CM.PN ---
Per MD in [facility], Patient is not yet medically cleared for dc(Cardiology f/u); PT is recommending home with services and Patient is active with [facility]. CM will follow.
--- NOTE | 2023-12-15 10:50 | HO.PM.IMPN ---
Subjective Subjective Date of Service: 12/15/23 Interval History: dizzy, sob Physical Exam Vital Signs: Vital Signs: Last Vital Signs Temp 97.0 F 12/15/23 07:46 Pulse 85 12/15/23 07:46 Resp 18 12/15/23 07:46 BP 143/75 H 12/15/23 07:46 Pulse Ox 96 12/15/23 07:46 O2 Del Method Nasal Cannula 12/15/23 07:46 O2 Flow Rate 2 12/15/23 07:46 FiO2 30 12/13/23 11:35 BMI result Body Mass Index 30.6 mild exp wheezes, Objective Data Active Medications Acetaminophen/Butalbital/Caffeine (Butalb/Acetamin/Caff 50/325/40 Tablet) 1 tab PO DAILY PRN PRN Reason: Headache Albuterol Sulfate (Albuterol Sulfate (0.083%) 2.5 Mg/3 Ml Vial.Neb) 2.5 mg INHALE Q2H PRN PRN Reason: Wheezing Last Admin: 12/12/23 22:43 Dose: 2.5 mg Documented By: WILL Albuterol/Ipratropium (Albuterol/Iprat 2.5/0.5mg 3 Ml Ampul.Neb) 3 ml INHALE RQ4H WHILE AWAKE [facility] Last Admin: 12/15/23 07:27 Dose: 3 ml Documented By: PEE Amlodipine Besylate (Amlodipine Besylate 5 Mg Tablet) 5 mg PO DAILY [facility]; Protocol Last Admin: 12/15/23 09:02 Dose: 5 mg Documented By: DESTIN Aspirin (Aspirin Enteric Coated 81 Mg Tablet.) 81 mg PO DAILY [facility] Last Admin: 12/15/23 09:02 Dose: 81 mg Documented By: DESTIN Atorvastatin Calcium (Atorvastatin Calcium 80 Mg Tablet) 80 mg PO BEDTIME [facility] Last Admin: 12/14/23 20:03 Dose: 80 mg Documented By: RICKEY Baclofen (Baclofen 10 Mg Tablet) 10 mg PO TID@0400,1300,2100 [facility] Last Admin: 12/15/23 04:21 Dose: 10 mg Documented By: YESSY Duloxetine HCl (Duloxetine Hcl 60 Mg Capsule.) 60 mg PO BID@0400,2100 [facility] Last Admin: 12/15/23 04:22 Dose: 60 mg Documented By: YESSY Enoxaparin Sodium (Enoxaparin Sodium 40 Mg/0.4 Ml Syringe) 40 mg SUBCUT Q24H [facility] Last Admin: 12/15/23 04:14 Dose: 40 mg Documented By: YESSY Famotidine (Famotidine/Pf 20 Mg/2 Ml Vial) 20 mg IVPUSH DAILY [facility] Last Admin: 12/15/23 09:03 Dose: 20 mg Documented By: DESTIN Gabapentin (Gabapentin 400 Mg Capsule) 1,200 mg PO TID@0400,1300,2100 [facility] Last Admin: 12/15/23 04:22 Dose: 1,200 mg Documented By: YESSY Guaifenesin/Codeine Phosphate (Guaifen/Codeine Sf 200/20/10ml 10 Ml Liquid) 5 ml PO Q4H PRN PRN Reason: Cough Last Admin: 12/15/23 04:32 Dose: 5 ml Documented By: YESSY Ceftriaxone Sodium 1 gm/ (Sodium Chloride) 50 mls @ 100 mls/hr IV Q24H [facility] Last Infusion: 12/15/23 04:46 Dose: Infused Documented By: YESSY Lorazepam (Lorazepam 1 Mg Tablet) 1 mg PO BID PRN PRN Reason: Anxiety Last Admin: 12/15/23 04:32 Dose: 1 mg Documented By: YESSY Meclizine HCl (Meclizine Hcl 25 Mg Tablet) 25 mg PO Q8H PRN PRN Reason: Vertigo Last Admin: 12/15/23 09:03 Dose: 25 mg Documented By: DESTIN Pt Own (Hyoscyamine (Sulfate 0.125 Mg)) 0.125 mg PO Q4H PRN PRN Reason: abdominal cramps Last Admin: 12/10/23 23:56 Dose: 0.125 mg Documented By: PASAH Oxcarbazepine (Oxcarbazepine 300 Mg Tablet) 600 mg PO BID@0400,2100 [facility] Last Admin: 12/15/23 04:23 Dose: 600 mg Documented By: YESSY Prazosin HCl (Prazosin Hcl 1 Mg Capsule) 2 mg PO BEDTIME [facility]; Protocol Last Admin: 12/14/23 20:03 Dose: 2 mg Documented By: RICKEY Prednisone (Prednisone 20 Mg Tablet) 40 mg PO DAILY [facility] Last Admin: 12/15/23 09:02 Dose: 40 mg Documented By: DESTIN Labs 12/11/23 07:48 12/13/23 06:09 Microbiology Microbiology Results: Microbiology 12/09/23 22:38 Blood Culture - Final Blood - Venous No growth after 5 days. 12/09/23 22:23 Blood Culture - Final Blood - Venous No growth after 5 days. Assessment and Plan (1) COPD exacerbation: Status: Resolved (2) Acute and chronic respiratory failure with hypoxia: Status: Resolved Plan 58F PMH hyperlipidemia, mood disorder, COPD with exercise hypoxemia and nocturnal hypoxemia, lacunar infarcts, PTSD, MVR, occipital neuralgia, tricuspid insufficiency, brain aneurysm, and right-sided sciatica admitted for COPD exacerbation with acute on chronic hypoxemic respiratory failure COPD exacerbation with acute on chronic hypoxemic and hypercapneic respiratory failure RPP negative, No pneumonia s/p Bipap and high flow now on 2L sleep study with no significant apneas, but with nocturnal hypoxia ativan prn PO prednisone, rocephin continue duonebs Elevated trops secondary to demand/NSTEMI trops 294-->271-->486 echo without hypokinesis/akinesis per cardiology, asa/statin, outpt MIBI Mood disorder/anxiety ativan increased to 1mg BID prn HTN continue minipress, norvasc and lasix Occipital/trigeminal neuralgia continue baclofen, gabapenin, vicodin HLD continue statin Obesity. BMI 30.6 Discussed importance of weight management as this may be contributing to worsening of other comorbidities dvt prophyalxis- lovenox full code reason for continued hospitalization:sob Quality Stroke Does the patient have a stroke diagnosis?: No VTE Prior VTE?: No VTE Risk Level:: Medical - moderate - high VTE Device Contraindication: N/A - Device Ordered VTE Drug Contraindication: N/A - Med Ordered
--- NOTE | 2023-12-15 11:15 | PM.PNCARD ---
Subjective Subjective Date of Service: 12/15/23 Interval history: Seen by request of patient. She is still wheezing and recovering from COPD. Previously seen regarding type 2 NSTEMI related to respiratory issues. Review of Systems Review of Systems Yes all other systems are reviewed and are negative Constitutional: Reports as per HPI and Reports no additional constitutional complaints Eyes: Reports as per HPI and Denies no additional eye complaints Denies system reviewed and no additional complaints, except as documented and Reports as per HPI Cardiovascular: Reports as per HPI, Reports no additional cardiovascular complaints, Denies acrocyanosis, Denies cool extremities, Denies chest pain, Denies leg edema, Denies lightheadedness, Denies palpitations and Reports dyspnea Respiratory: Reports as per HPI, Denies no additional respiratory complaints and Reports dyspnea Gastrointestinal: Reports as per HPI and Denies no additional gastrointestinal complaints Genitourinary: Reports as per HPI Musculoskeletal: Reports no additional musculoskeletal complaints and Reports as per HPI Skin/Breast: Reports system reviewed and no additional complaints, except as docu Reports system reviewed and no additional complaints, except as documented and Reports as per HPI Psychiatric: Reports no additional psychiatric complaints and Reports as per HPI Endocrine: Reports no additional endocrine complaints, Reports as per HPI and Denies palpitations Hematologic/Lymphatic: Reports no additional hematologic/lymphatic complaints and Reports as per HPI Allergic/Immunologic: Reports no additional allergic/immunologic complaints and Reports as per HPI Physical Exam Vital Signs: Last Vital Signs Temp 98.1 F 12/15/23 11:10 Pulse 93 12/15/23 11:10 Resp 18 12/15/23 11:10 BP 160/80 H 12/15/23 11:10 Pulse Ox 97 12/15/23 11:10 O2 Del Method Nasal Cannula 12/15/23 11:10 O2 Flow Rate 2 12/15/23 11:10 FiO2 30 12/13/23 11:35 BMI result Body Mass Index 30.6 Const General: comfortable and no acute distress Orientation/consciousness: patient oriented x3 HEENT Other: Unremarkable Head: Yes normal to inspection Neck Neck: Yes normal visual inspection Chest Chest palpation & inspection: normal inspection of the chest Resp Auscultation: wheezes and diminished lung sounds Cardio Palpation: normal PMI Heart sounds: S1 normal heart sound present, S2 normal heart sound present, no gallops, no murmurs and no rubs GI Palpation (GI): Soft to palpation Back/Spine/Pelvis Other: unremarkable Skin General skin exam: no rashes or lesions noted Neuro General: patient oriented x3 Extrem General: Yes normal to inspection Psych Mental Status: mental status grossly normal Objective Labs and Meds 12/11/23 07:48 12/13/23 06:09 Progress Note: A&P Assessment and plan (1) NSTEMI (non-ST elevated myocardial infarction): Status: Acute (2) Acute exacerbation of chronic obstructive airways disease: Status: Acute Plan Last troponin values from 12/10 Min was 486. Echocardiogram with hyperdynamic LVEF. Mild aortic stenosis but otherwise unremarkable. EKG from the time of admission did not show any clear-cut ischemic changes. Overall, suspected type 2 event related to respiratory issues. Clinically, she is still quite wheezy. Continue to optimize respiratory status. She remains on aspirin/statins. Will arrange outpatient appointment to discuss further care. Unclear if she will be suitable for stress testing at all if the respiratory status does not improve much. Will follow and decide. d/w . Time Spent With Patient Time: Total time managing care of this patient today ____ minutes. Progress Note: Quality Stroke Does the patient have a stroke diagnosis?: No Procedures Date of Service Date of Service: 12/15/23
[2023-12-15] MEDS: Atorvastatin Calcium 80 MG TABLET PO (20:59)
[2023-12-15] MEDS: Prazosin HCL 1 MG CAPSULE 2 MG PO (21:00)
[2023-12-16 01:52] VITALS: PULSE 102; RESP 20; O2SAT 94
[2023-12-16] MEDS: Albuterol Sulfate (0.083%) 2.5 MG/3 ML VIAL.NEB INHALE (01:52)
[2023-12-16 01:59] VITALS: BP 140/85; PULSE 100; RESP 20; TEMP 36.6; O2SAT 95
[2023-12-16] MEDS: Enoxaparin Sodium 40 MG/0.4 ML SYRINGE SUBCUT (02:29)
[2023-12-16] MEDS: cefTRIAXone sodium 1 GM in 0.9 % Sodium Chloride 50 ML IV (02:34)
[2023-12-16 04:00] VITALS: BP 137/79; PULSE 96; RESP 18; TEMP 36.4; O2SAT 96
[2023-12-16] MEDS: DULoxetine HCl 60 MG CAPSULE.DR PO (04:56)
[2023-12-16] MEDS: Gabapentin 400 MG CAPSULE 1200 MG PO (04:56)
[2023-12-16] MEDS: Calcium Carbonate 750 MG TAB.CHEW PO (04:57)
[2023-12-16] MEDS: OXcarbazepine 300 MG TABLET 600 MG PO (05:00)
[2023-12-16] MEDS: Baclofen 10 MG TABLET PO (05:01)
[2023-12-16 07:29] VITALS: PULSE 108; RESP 22; O2SAT 88
[2023-12-16] MEDS: Albuterol/Iprat 2.5/0.5MG 3 ML AMPUL.NEB INHALE ×2 (07:29→11:02)
[2023-12-16 07:33] VITALS: BP 160/81; PULSE 94; RESP 20; TEMP 36.6; O2SAT 93
[2023-12-16] MEDS: amLODIPine Besylate 5 MG TABLET PO (08:34)
[2023-12-16] MEDS: Aspirin Enteric Coated 81 MG TABLET.DR PO (08:34)
[2023-12-16] MEDS: Famotidine/PF 20 MG/2 ML VIAL IVPUSH (08:34)
[2023-12-16] MEDS: predniSONE 20 MG TABLET 40 MG PO (08:34)
--- NOTE | 2023-12-16 09:23 | PM.DS ---
DS: Providers Provider Date of Service: 12/16/23 Date of admission: 12/10/23 02:24 Primary care physician: ESTEBAN Christianson Consults: 12/11/23 09:21 Consult to Cardiology Routine Consulting Provider: [facility] Reason for consultation: Elevated trope 450, no longer hypoxic 12/12/23 08:55 Consult to Pulmonology Routine Consulting Provider: [facility] Reason for consultation: copd, recurrent bronchospasm DS: Diagnosis Discharge Diagnosis (1) NSTEMI (non-ST elevated myocardial infarction): Status: Acute (2) Acute exacerbation of chronic obstructive airways disease: Status: Acute DS: Summary Hospital Course Hospital Course: from initial hpi: 58-year-old female with underlying history of hyperlipidemia, tobacco use disorder, exercise related hypoxia nocturnal COPD and O2 dependence at 1 L nasal cannula, who was recently admitted and discharged from this hospital at the beginning of this month, has mood disorder, peripheral neuropathy, chronic back pain, anxiety, vitamin-D deficiency and prior recent episodes of hypoxic respiratory failure, history of lacunar infarcts, occipital neuralgia, retinal aneurysm, sciatica, pulmonary nodules among others. Patient presented to the emergency room with complaints of shortness of breath for the past 24 hours.? Patient did admit having cough without any sputum production, no fever chills, no chest pain, no palpitations, arm or jaw pain, to her knowledge she does not have underlying history of coronary artery disease and has not had a heart attack in the past.? She has not traveled recently and has not been contact with anybody who is sick.? In the ER the patient was noted to be hypoxic at room air as low as 79 % although she is to use nasal cannula oxygen, given the respiratory distress and accessory muscle usage, the patient was placed on BiPAP with good improvement but according to ED physician a few hours after they try to wean her off BiPAP and they were not able to as the patient became hypoxic again therefore this was placed back on. Patient did receive Solu-Medrol, albuterol nebulizers, magnesium and doxycycline.? Baseline ABG shows pH of 7.35, pCO2 of 50 2, PO2 69, HC03 29.? Other laboratories as described below.? Currently the patient states she feels a little better but she still feels has difficulty breathing and otherwise unable to give us history she is on BiPAP. hospital course: Patient was admitted for acute on chronic hypoxic and hypercapnic respiratory failure secondary to COPD with acute decompensation. She was initially treated in the ICU with BiPAP and then quickly improved and was downgraded to medical floor where she was continued on high-flow and then weaned to 2 L, given steroids, empiric antibiotics, DuoNebs. Sleep study was negative for obstructive apneas but did show nocturnal hypoxia, patient does have O2 at home and should continue use at night. She will be discharged on 5 more days of prednisone. Patient was noted to have elevated troponin, likely type 2 NSTEMI due to demand, echo without regional wall motion abnormalities. Was seen by Cardiology recommended aspirin statin and outpatient stress test. For hypertension was continued on Minipress and amlodipine was added. For trigeminal neuralgia was continued on baclofen, gabapentin, Vicodin. For obesity weight loss recommended. Patient is feeling better will be discharged home. Time Attestation Discharge Coordination Time (in mins): 33 Quality: Safe Use of Opioids Does Pt have an Active Cancer Diagnosis on the Problem List?: No Quality: Stroke Does the patient have a stroke diagnosis?: No Physical Exam Vital Signs: Vital Signs: Last Vital Signs Temp 97.9 F 12/16/23 07:33 Pulse 94 12/16/23 07:33 Resp 20 12/16/23 07:33 BP 160/81 H 12/16/23 07:33 Pulse Ox 93 12/16/23 07:33 O2 Del Method Nasal Cannula 12/16/23 07:33 O2 Flow Rate 2 12/16/23 07:33 FiO2 30 12/13/23 11:35 BMI result Body Mass Index 30.6 mild wheeze, ao times 3, no acute distress DS: Data Data Completed and Pending Completed studies during hospitalization [Text1]: Procedures Assistance with Respiratory Ventilation, Less than 24 Consecutive Hours, Continuous Positive Airway Pressure (11/15/23) Discharge Plan Discharge Anticipated Discharge Date/Time: 12/16/23 09:12 Patient Disposition: Home Health Service Discharge Diagnosis: copd Referrals: Sirisha Huertas FNP-BC [Primary Care Provider] - 1 Week Discharge Medications: New ipratropium-albuterol 0.5 mg-3 mg(2.5 mg base)/3 mL Solution For Nebulization 3 ml inhalation RQ4H WHILE AWAKE PRN (Reason: sob) 90 Days Qty: 180 0RF amlodipine 5 mg Tablet 5 mg PO DAILY Qty: 90 0RF Protocol: Hold for SBP< HOLD for SBP < : 90 aspirin 81 mg Tablet,Delayed Release (Dr/Ec) 81 mg PO DAILY Qty: 90 0RF prednisone 20 mg Tablet 40 mg PO DAILY Qty: 10 0RF (DME) nebulizer and compressor Device See Rx Instructions .Route Qty: 1 0RF Rx Instructions: As directed codeine-guaifenesin 8-200 mg/5 mL liquid 5 ml PO Q6H PRN (Reason: cough) Qty: 473 0RF Continued atorvastatin 80 mg tablet 80 mg PO BEDTIME hydrocodone-acetaminophen 5-325 mg tablet 1 tab PO DAILY PRN (Reason: Pain) iobjdaicdx-vynvroipwcnsm-epgo 50-325-40 mg tablet 1 tab PO DAILY PRN (Reason: Headache) baclofen 10 mg tablet 10 mg PO TID hyoscyamine sulfate 0.125 mg tablet 0.125 - 0.25 mg PO Q4-6H PRN (Reason: Abdominal Discomfort) gabapentin 300 mg capsule 1,200 mg PO TID oxcarbazepine 600 mg tablet 600 mg PO BID lorazepam 1 mg tablet 1 mg PO DAILY PRN (Reason: Anxiety) duloxetine 60 mg capsule,delayed release(DR/EC) 60 mg PO BID calcium carbonate-vitamin D3 600 mg-5 mcg (200 unit) Tablet 1 tab PO DAILY albuterol sulfate 90 mcg/actuation HFA aerosol inhaler 2 inh inhalation Q4H PRN (Reason: shortness of breath or wheezing) prazosin 2 mg capsule 2 mg PO BEDTIME (DME) Oxygen Home Use Kit See Rx Instructions .ROUTE Rx Instructions: As directed Stiolto Respimat 2.5-2.5 mcg/actuation mist 2 puff inhalation DAILY 30 Days Qty: 4 11RF Discharge Orders: Discharge Order (Routine); Ordered 12/16/23 Ordered By: Yovany Lee Diet: Advance to usual diet Activity on Discharge: As tolerated Stand Alone Forms: Patient Portal Discharge page Print Language: Malay Care Plan Goals: recovery Health Concerns: nstemi, copd Plan of Treatment: o2 at night, 5 days prednsione, stop smoking, follow up with cardiology Assessment: see above
[2023-12-16] MEDS: HYDROcodone Bit/Acetam 5/325 TABLET 1 TAB PO (11:05)
[2023-12-16 11:08] VITALS: PULSE 113; RESP 20; O2SAT 91
--- NOTE | 2023-12-16 11:26 | MHC.CM.PN ---
pt medically cleared for dc home w/resump of hvna, imm delivered to bedside, pt concerned [facility] [address] [facility] closed d/t however cm confirmed pharmacy is open today however pharmacy is open from 10am-6pm for holiday, pt will call for transport
== END 2023-12-16 12:41 | disposition home health service (06) | DRG 140 ==
LOC: HO.ED 12-10 02:09 → HO.EDOVER 12-10 02:28 → HO.ICU 12-10 03:01 → HO.IMC 12-10 09:43
PROVIDERS: Family Medicine; Physician Assistant; Physician Assistant Medical; Admitting Provider Internal Medicine; Emergency Provider Emergency Medicine; PCP Registered Nurse; Visit Provider Internal Medicine
DX: J44.1 Chronic obstructive pulmonary disease with (acute) exacerbation (principal); J96.21 Acute and chronic respiratory failure with hypoxia; I21.A1 Myocardial infarction type 2; Z99.81 Dependence on supplemental oxygen; J98.01 Acute bronchospasm; E78.2 Mixed hyperlipidemia; Z91.041 Radiographic dye allergy status; J96.22 Acute and chronic respiratory failure with hypercapnia; Z91.040 Latex allergy status; F17.210 Nicotine dependence, cigarettes, uncomplicated; G50.0 Trigeminal neuralgia; I35.0 Nonrheumatic aortic (valve) stenosis; Z71.6 Tobacco abuse counseling; F43.10 Post-traumatic stress disorder, unspecified; E66.9 Obesity, unspecified; Z68.30 Body mass index [BMI] 30.0-30.9, adult; Z71.3 Dietary counseling and surveillance; M54.81 Occipital neuralgia; G62.9 Polyneuropathy, unspecified; F41.9 Anxiety disorder, unspecified; E86.0 Dehydration; E87.6 Hypokalemia; Z20.822 Contact with and (suspected) exposure to COVID-19; Z79.82 Long term (current) use of aspirin; Z79.899 Other long term (current) drug therapy
CPT/HCPCS: 36415; 71045; 80048; 80053; 82803; 83605; 83880; 84484; 85025; 85610; 87040; 87633; 93005; 93306; 94640; 94660; 97162; 99285; J0696; J1650; J2060; J2919; J3475; J3480; J7120; Q9957

== ENCOUNTER → 2023-12-09 21:55 | Outpatient (BNV) | payer BC, SELFPAY | PROVIDERS: Admitting Provider Internal Medicine; Emergency Provider Emergency Medicine; Visit Provider Internal Medicine Cardiovascular Disease | DX: R77.8 Other specified abnormalities of plasma proteins (principal) | CPT/HCPCS: 93010 ==

== ENCOUNTER 2023-12-10 02:24 | Outpatient (BNV) | payer BC, SELFPAY | END 2023-12-10 08:32 | PROVIDERS: Admitting Provider Internal Medicine; Emergency Provider Emergency Medicine; Visit Provider Internal Medicine Cardiovascular Disease | DX: I35.0 Nonrheumatic aortic (valve) stenosis (principal); R94.31 Abnormal electrocardiogram [ECG] [EKG] | CPT/HCPCS: 93010; 93306 ==

== ENCOUNTER → 2023-12-10 02:24 | Outpatient (BNV) | payer BC, SELFPAY | PROVIDERS: Admitting Provider Internal Medicine; Emergency Provider Emergency Medicine; PCP Registered Nurse; Visit Provider Internal Medicine Cardiovascular Disease | DX: I21.4 Non-ST elevation (NSTEMI) myocardial infarction (principal); J44.1 Chronic obstructive pulmonary disease with (acute) exacerbation | CPT/HCPCS: 99222; 99233 ==

== ENCOUNTER → 2023-12-10 02:24 | Outpatient (BNV) | payer BC, SELFPAY | PROVIDERS: Admitting Provider Internal Medicine; Emergency Provider Emergency Medicine; PCP Registered Nurse; Visit Provider Hospitalist | DX: J44.1 Chronic obstructive pulmonary disease with (acute) exacerbation (principal); J96.12 Chronic respiratory failure with hypercapnia; J96.01 Acute respiratory failure with hypoxia | CPT/HCPCS: 99223 ==

== ENCOUNTER → 2023-12-10 02:24 | Outpatient (BNV) | payer BC, SELFPAY | PROVIDERS: Admitting Provider Internal Medicine; Emergency Provider Emergency Medicine; Visit Provider Physician Assistant Medical | DX: J44.1 Chronic obstructive pulmonary disease with (acute) exacerbation (principal); J96.01 Acute respiratory failure with hypoxia | CPT/HCPCS: 99291; 99292 ==

== ENCOUNTER → 2023-12-10 02:24 | Outpatient (BNV) | payer BC, SELFPAY | PROVIDERS: Admitting Provider Internal Medicine; Emergency Provider Emergency Medicine; PCP Registered Nurse; Visit Provider Physician Assistant | DX: J44.1 Chronic obstructive pulmonary disease with (acute) exacerbation (principal); J96.21 Acute and chronic respiratory failure with hypoxia | CPT/HCPCS: 99232; 99233; 99239 ==

== ENCOUNTER 2023-12-23 22:28 | Inpatient (IN) | payer BC, MEDICARE, SELFPAY ==
--- NOTE | ~2023-12-23 | XR_ITS ---
EXAMINATION: XR CHEST CLINICAL INFORMATION: Shortness of breath. COMPARISON: Chest radiograph dated 12/09/2023. TECHNIQUE: Frontal view of the chest was obtained. FINDINGS: The cardiomediastinal silhouette is normal in size. The lungs are clear. No pleural effusion. No pneumothorax. No acute osseous abnormality. XR/XR chest 1V IMPRESSION: No acute cardiopulmonary disease.
--- NOTE | 2023-12-23 22:33 | ECG_ITS ---
Test Reason : RESP DISTRESS Blood Pressure : / mmHG Vent. Rate : 096 BPM Atrial Rate : 096 BPM P-R Int : 138 ms QRS Dur : 076 ms QT Int : 340 ms P-R-T Axes : 060 067 058 degrees QTc Int : 429 ms Normal sinus rhythm Nonspecific ST abnormality Abnormal ECG When compared with ECG of 10-DEC-2023 08:32, No significant change was found Referred By: Juli Aleman Electronically Signed By:Eladio Nelson
[2023-12-23 22:36] VITALS: BP 148/82; PULSE 114; RESP 37; TEMP 36.7; O2SAT 93; BMI 35.8
--- NOTE | 2023-12-23 22:38 | ED.SOB ---
HPI - SOB/Dyspnea General Chief Complaint: Dyspnea Stated Complaint: RESP DISTRESS Time Seen by Provider: 12/23/23 22:32 Source: patient and EMS Mode of arrival: EMS Limitations: no limitations History of Present Illness ED Provider: Dr. Juli Aleman HPI Narrative: Patient comes to the emergency room via ambulance from home. Patient states that earlier today she started feeling very short of breath. Patient called 911. When EMS arrived to the patient's, patient was on her usual 1 L of oxygen, saturating 80% patient denies any chest pain. EMS reports that when they arrived to the patient's residence, and they did vitals, patient's blood pressure was in the 200s. A nitro patch 1 in was applied to the patient's chest. On arrival to the ED, blood pressure in the 140 systolic Related Data Home Medications ?Medication ?Instructions ?Recorded ?Confirmed atorvastatin 80 mg tablet 80 mg PO BEDTIME 03/04/23 12/23/23 baclofen 10 mg tablet 10 mg PO TID 03/04/23 12/23/23 htgeopfbyw-zibhdwijhprba-ftesiyoj 1 tab PO DAILY PRN Headache 03/04/23 12/23/23 50 mg-325 mg-40 mg tablet duloxetine 60 mg capsule,delayed 60 mg PO BID 03/04/23 12/23/23 release gabapentin 300 mg capsule 1,200 mg PO TID 03/04/23 12/23/23 hydrocodone 5 mg-acetaminophen 325 1 tab PO DAILY PRN Pain 03/04/23 12/23/23 mg tablet hyoscyamine sulfate 0.125 mg tablet 0.125 - 0.25 mg PO Q4-6H PRN 03/04/23 12/23/23 Abdominal Discomfort lorazepam 1 mg tablet 1 mg PO DAILY PRN Anxiety 03/04/23 12/23/23 oxcarbazepine 600 mg tablet 600 mg PO BID 03/04/23 12/23/23 Oxygen Home Use 04/16/23 12/23/23 prazosin 2 mg capsule 2 mg PO BEDTIME 04/16/23 12/23/23 albuterol sulfate 90 mcg/actuation 2 inh inhalation Q4H PRN shortness 11/15/23 12/23/23 aerosol inhaler of breath or wheezing calcium carbonate 600 mg-vitamin 1 tab PO DAILY 11/15/23 12/23/23 D3 5 mcg (200 unit) tablet Previous Rx's ?Medication ?Instructions ?Recorded tiotropium 2.5 mcg-olodaterol 2.5 2 puff inhalation DAILY 30 days #4 04/16/23 mcg/actuation mist for inhalation grams (Stiolto Respimat) amlodipine 5 mg tablet 5 mg PO DAILY #90 tabs 12/16/23 aspirin 81 mg tablet,delayed 81 mg PO DAILY #90 tabs 12/16/23 release codeine 8 mg-guaifenesin 200 mg/5 5 ml PO Q6H PRN cough #473 mL 12/16/23 mL oral liquid ipratropium 0.5 mg-albuterol 3 mg 3 ml inhalation RQ4H WHILE AWAKE 12/16/23 (2.5 mg base)/3 mL nebulization PRN sob 90 days #180 mL soln nebulizer and compressor #1 ea 12/16/23 prednisone 20 mg tablet 40 mg (2 x 20 mg) PO DAILY #10 tabs 12/16/23 Allergies Allergy/AdvReac Type Severity Reaction Status Date / Time Iodinated Contrast Media Allergy Intermediate HIVES Verified 12/23/23 22:38 [IV CONTRAST] acetaminophen [From VICODIN] Allergy Unknown VOMITING Verified 12/23/23 22:38 hydrocodone [From VICODIN] Allergy Unknown VOMITING Verified 12/23/23 22:38 latex [LATEX] Allergy Unknown RASH Verified 12/23/23 22:38 oxycodone [From PERCOCET] Allergy Unknown VOMITING Verified 12/23/23 22:38 procaine [From Novocain] Allergy Unknown HIVES Verified 12/23/23 22:38 morphine [MORPHINE] AdvReac Unknown VOMITING Verified 12/23/23 22:38 Review of Systems Review of Systems: Constitutional : No Weight loss, No Fever, No Chills, No Night Sweats, No Fatigue, No Malaise ENT/Mouth : No Hearing loss, No Ear Pain, No Nasal Congestion, No Sinus Pain, No Hoarseness, No sore throat, No Rhinorrhea, No Swallowing Difficulty Eyes: No Eye Pain, No Swelling, No Redness, No Foreign Body, No Discharge, No Vision Changes Cardiovascular : No Chest Pain, no orthopnea, no palpitations no edema Respiratory : Complaining of cough, wheezing, shortness of breath Gastrointestinal : No Nausea, No Vomiting, No Diarrhea, No Constipation, No abdominal Pain, No Hematochezia, No Melena Genitourinary : no irregular bleeding, No Dysuria, No Urinary Frequency, No Hematuria, No Urinary Incontinence, No Urgency, No Flank Pain, No Urinary Flow Changes, No Hesitancy Musculoskeletal : No joint pain, No Myalgias, No Joint Swelling Skin : No Skin Lesions, No rash Neuro : No Weakness, No Numbness, No Paresthesias, No Loss of Consciousness, No Dizziness, No Headache Psych : No Anxiety/Panic, No Depression, No SI/HI/AH/VH, No Social Issues, Heme/Lymph: No Bruising, No Bleeding,No Lymphadenopathy Endocrine : No Polyuria, No Polydipsia, No Temperature Intolerance [facility] Past Medical History Medical History COPD (chronic obstructive pulmonary disease) Chronic hypercapnic respiratory failure Trigeminal neuralgia Pulmonary nodules Mixed hyperlipidemia Peripheral neuropathy Tobacco use disorder Mood disorder Surgical History History of esophagogastroduodenoscopy (EGD) History of colonoscopy History of lumbar discectomy History of tubal ligation History of excision of mass History of shoulder surgery Social History Social History Household Members: Spouse Housing: Condominium Do you presently have visiting nurse or other home services: No Alcohol intake: current Alcohol intake frequency: holidays/special occasions only Alcohol type: wine Comment: pt refuse bed alarm Patient Tobacco Use Status: Current everyday Tobacco user Tobacco use type: Cigarette Cigarette Packs Per Day: 1 Cigarettes Per Day: 20.0 Smoked in Last 30 Days: Yes e-Cigarette/Vaping Use: Never Used Second Hand Smoke Exposure: No Use of substances other than those prescribed or required for medical reasons: Yes Substance Use Type: Marijuana Substance Use Frequency: Chronic Longstanding Advance Directives: Yes Advance Directives on File: Yes Advance Directives Date on File: 03/09/23 Do you have a plan to hurt others: No Plan Patient : No service: No Physical Exam Vital Signs: Vital Signs: Last Vital Signs Temp 98.2 F 12/23/23 22:49 Pulse 91 12/24/23 00:02 Resp 22 H 12/24/23 00:02 BP 155/73 H 12/23/23 22:49 Pulse Ox 93 12/23/23 22:49 O2 Del Method Room Air, Nasal C annula 12/23/23 22:49 O2 Flow Rate 4 12/23/23 22:49 Oxygen Flow Rate 3 12/23/23 22:36 BMI result Body Mass Index 35.8 Const: Other: Appearance: Alert. Oriented X3. Having difficulty breathing Eyes: Pupils equal, round and reactive to light. ENT: Pharynx normal. Neck: Normal inspection. Neck supple. No lymph nodes noted. No crepitus CVS: Normal heart rate and rhythm. Pulses normal. Normal S1 and S2 Respiratory: In moderate respiratory distress. Patient arrived on CPAP Abdomen: Soft and nontender. No rigidity. No distention. Skin: Skin warm and dry. Normal skin color. Normal skin turgor. Extremities: No lower extremity edema. No Lacerations. No Rash Neuro: Oriented X 3. No motor deficit. No sensory deficit. Moving all extremities. No slurred speech. CN 2 through 12 grossly intact Psych: calm, cooperative, normal affect Course Course Course Narrative: -patient's lowest oxygen saturation was 80% on 1 L which she uses at home. Patient was brought to the ED on CPAP by EMS, and albuterol nebulization treatment was given to her -on arrival to the ED, patient was switched to nasal cannula in the ED, oxygen saturation 92%. -patient receiving Solu-Medrol, IV 2 g, albuterol, patient is being giving fluids based on ideal weight of 46 kg, patient empirically being treated with antibiotics with levofloxacin. -patient was discharged from the hospital 1 week ago, patient was here for hypercapnic respiratory failure secondary to COPD with acute decompensation and type 2 NSTEMI Medications Administered Generic Name Dose Route Start Last Admin Trade Name Freq PRN Reason Stop Dose Admin Magnesium Sulfate 2 gm in 50 mls @ 25 mls/hr 12/23/23 22:36 12/23/23 22:53 Magnesium Sulfate/H2o IV 12/24/23 00:35 25 mls/hr ONCE ONE Administration Sodium Chloride 2,000 mls @ 999 mls/hr 12/23/23 22:37 12/23/23 22:54 Ns IVCONT 12/24/23 00:37 999 mls/hr .Q2H1M ONE Administration Discontinued Medications Generic Name Dose Route Start Last Admin Trade Name Freq PRN Reason Stop Dose Admin Albuterol Sulfate 7.5 mg/ 10 mg 12/24/23 00:00 12/24/23 00:01 Albuterol Sulfate 2.5 mg INHALE 12/24/23 00:01 10 mg ONCE ONE Administration Albuterol Sulfate 7.5 mg/ 0 mg 12/23/23 22:47 12/23/23 22:50 Albuterol/Ipratropium 3 ml INHALE 12/23/23 22:48 1 each ONCE ONE Administration Levofloxacin 500 mg in 100 mls @ 100 mls/hr 12/23/23 22:37 12/23/23 23:08 Levaquin IV 12/23/23 23:36 100 mls/hr ONCE ONE Administration Methylprednisolone Sodium Succinate 125 mg 12/23/23 22:36 12/23/23 22:53 Methylprednisolone Sod Succ 125 Mg/2 Ml Vial IVPUSH 12/23/23 22:37 125 mg ONCE ONE Administration Medical Decision Making Medical Decision Making [facility] Narrative: -my interpretation of EKG: Normal sinus rhythm, heart rate 96, no ST segment depression or elevation, no T-wave inversion, QTC 429 -my interpretation of labs, white blood cell count 14.5, lactic 1.7, normal chemistry, BNP 66, negative, troponin 120 which decreased from previous week, 486 secondary to an NSTEMI. Serology negative for COVID and influenza -my interpretation of chest x-ray, negative for obvious infiltrates. -on arrival, patient prophylactically received fluids based on ideal weight of 46 kg and IV antibiotics -patient remained stable on 4 L nasal cannula, oxygen saturation 93%, blood pressure 155/73 -I discussed the patient with Dr. Bolton, patient being admitted Differential Diagnosis Differential Diagnoses: The differential diagnosis associated with the presentation includes (Hypertension, CHF, hypertensive emergency, hypertensive urgency, asthma, chronic lung disease, hypoxic respiratory failure) Admission/Observation Consideration of admission/observation: Escalation of care including admission/observation considered Consult Healthcare Provider Management of the patient was discussed with: Hospitalist Lab Data [facility] Lab Attestation statement: I reviewed the patient's lab results. 12/23/23 22:38 12/23/23 23:00 Labs: Lab Results 12/23/23 12/23/23 12/23/23 Range/Units 22:37 22:38 22:39 WBC 14.5 H (4.8-10.8) X10*3/uL RBC 4.28 (4.20-5.50) X10*6/uL Hgb 14.1 (12.0-16.0) g/dl Hct 42.1 (37.0-47.0) % MCV 98.4 H (80.0-98.0) fL MCH 32.9 (27.0-33.0) pg MCHC 33.5 (31.0-35.0) g/dl RDW 14.8 (11.0-16.0) % Plt Count 392 (160-400) X10*3/uL MPV 8.9 L (9.4-12.3) fL Immature Gran % (Auto) 1.4 H (0.0-0.4) % Neut % (Auto) 67.2 (45-73) % Lymph % (Auto) 18.2 L (20-40) % [place] % (Auto) 9.2 (2-11) % Eos % (Auto) 3.6 (0-4) % Baso % (Auto) 0.4 (0-2) % Lymph # (Auto) 2.6 (1.2-4.9) X10*3/uL [place] # (Auto) 1.3 H (0.1-1.2) X10*3/uL Eos # (Auto) 0.5 H (0.0-0.4) X10*3/uL Baso # (Auto) 0.1 (0.0-0.2) X10*3/uL Abs Immat Gran (auto) 0.20 H (0.00-0.03) X10*3/uL Absolute Neuts (auto) 9.7 H (2.0-8.3) x10*3/uL Absolute Nucleated RBC 0.000 (0.0-0.012) X10*3/uL Nucleated RBC % (auto) 0.0 (0.0-0.2) /100WBC PT (11.1-13.3) SEC INR (0.9-1.1) VBG pH (7.32-7.43) VBG pCO2 mmHg VBG pO2 mmHg VBG HCO3 (22-26) mmol/L VBG O2 Saturation % VBG Base Excess mmol/L Sodium (135-145) mmol/L Potassium (3.3-5.1) mmol/L Chloride (96-108) mmol/L Carbon Dioxide (22-29) mmol/L Anion Gap (12-20) BUN (9-16) mg/dL Creatinine (0.5-1.4) mg/dL Estim Creat Clear Calc Estimated GFR POC Glucose 114 (60-115) mg/dL Random Glucose (60-115) mg/dL Lactic Acid 1.7 (0.5-2.0) mmol/L Calcium (8.4-10.2) mg/dL Magnesium (1.6-2.6) mg/dL Total Bilirubin (0.0-1.0) mg/dL Direct Bilirubin (0.0-0.5) mg/dL AST (5-31) U/L ALT (0-31) U/L Alkaline Phosphatase (39-117) U/L Troponin I High Sens (<3.5-17.0) ng/L B-Natriuretic Peptide 66 (<100) pg/mL Total Protein (6.5-8.0) g/dL Albumin (3.5-5.0) g/dL COVID-19 (SONAL) Negative (Negative) COVID-19 Clin Com See Note Influenza Type A (DERREK) Negative (Negative) Influenza Type B (DERREK) Negative (Negative) Influenza A & B Note See Note 12/23/23 12/23/23 Range/Units 22:43 23:00 WBC (4.8-10.8) X10*3/uL RBC (4.20-5.50) X10*6/uL Hgb (12.0-16.0) g/dl Hct (37.0-47.0) % MCV (80.0-98.0) fL MCH (27.0-33.0) pg MCHC (31.0-35.0) g/dl RDW (11.0-16.0) % Plt Count (160-400) X10*3/uL MPV (9.4-12.3) fL Immature Gran % (Auto) (0.0-0.4) % Neut % (Auto) (45-73) % Lymph % (Auto) (20-40) % [place] % (Auto) (2-11) % Eos % (Auto) (0-4) % Baso % (Auto) (0-2) % Lymph # (Auto) (1.2-4.9) X10*3/uL [place] # (Auto) (0.1-1.2) X10*3/uL Eos # (Auto) (0.0-0.4) X10*3/uL Baso # (Auto) (0.0-0.2) X10*3/uL Abs Immat Gran (auto) (0.00-0.03) X10*3/uL Absolute Neuts (auto) (2.0-8.3) x10*3/uL Absolute Nucleated RBC (0.0-0.012) X10*3/uL Nucleated RBC % (auto) (0.0-0.2) /100WBC PT 9.6 L (11.1-13.3) SEC INR 0.8 L (0.9-1.1) VBG pH 7.32 (7.32-7.43) VBG pCO2 57 mmHg VBG pO2 69 mmHg VBG HCO3 30 H (22-26) mmol/L VBG O2 Saturation 91.0 % VBG Base Excess 2.8 mmol/L Sodium 144 (135-145) mmol/L Potassium 4.3 (3.3-5.1) mmol/L Chloride 112 H (96-108) mmol/L Carbon Dioxide 22 (22-29) mmol/L Anion Gap 14 (12-20) BUN 13 (9-16) mg/dL Creatinine 0.71 (0.5-1.4) mg/dL Estim Creat Clear Calc 83.9 Estimated GFR > 60 POC Glucose (60-115) mg/dL Random Glucose 130 H (60-115) mg/dL Lactic Acid (0.5-2.0) mmol/L Calcium 9.0 D (8.4-10.2) mg/dL Magnesium 2.6 (1.6-2.6) mg/dL Total Bilirubin 0.2 (0.0-1.0) mg/dL Direct Bilirubin < 0.2 (0.0-0.5) mg/dL AST 30 (5-31) U/L ALT 34 H (0-31) U/L Alkaline Phosphatase 69 (39-117) U/L Troponin I High Sens 120.6 H* D (<3.5-17.0) ng/L B-Natriuretic Peptide (<100) pg/mL Total Protein 6.4 L (6.5-8.0) g/dL Albumin 4.1 (3.5-5.0) g/dL COVID-19 (SONAL) (Negative) COVID-19 Clin Com Influenza Type A (DERREK) (Negative) Influenza Type B (DERREK) (Negative) Influenza A & B Note Independent Interpretation I performed an independent interpretation of an: EKG and Plain X-Ray Radiology Impression Discussion of test interpretation with radiology: I have reviewed the radiologist's reading. Radiologist Impression: The cardiomediastinal silhouette is normal in size. The lungs are clear. No pleural effusion. No pneumothorax. No acute osseous abnormality. XR/XR chest 1V IMPRESSION: No acute cardiopulmonary disease. Critical Care Time Critical Care Time Critical Care Time: Yes Total Critical Care Time: 75 Attestation: I have personally provided critical care time. Time includes review of lab data, radiology results, discussion with consultants, and monitoring for potential decompensation. Intervention performed as documented. Discharge Plan Discharge Clinical Impression: Hypertension, Chronic hypoxic respiratory failure Patient Disposition: Admitted As Inpatient Prescriptions: No Action atorvastatin 80 mg tablet 80 mg PO BEDTIME hydrocodone-acetaminophen 5-325 mg tablet 1 tab PO DAILY PRN (Reason: Pain) lugjanmgfo-drpafkdjlzuco-atij 50-325-40 mg tablet 1 tab PO DAILY PRN (Reason: Headache) baclofen 10 mg tablet 10 mg PO TID hyoscyamine sulfate 0.125 mg tablet 0.125 - 0.25 mg PO Q4-6H PRN (Reason: Abdominal Discomfort) gabapentin 300 mg capsule 1,200 mg PO TID oxcarbazepine 600 mg tablet 600 mg PO BID lorazepam 1 mg tablet 1 mg PO DAILY PRN (Reason: Anxiety) duloxetine 60 mg capsule,delayed release(DR/EC) 60 mg PO BID calcium carbonate-vitamin D3 600 mg-5 mcg (200 unit) Tablet 1 tab PO DAILY albuterol sulfate 90 mcg/actuation HFA aerosol inhaler 2 inh inhalation Q4H PRN (Reason: shortness of breath or wheezing) ipratropium-albuterol 0.5 mg-3 mg(2.5 mg base)/3 mL Solution For Nebulization 3 ml inhalation RQ4H WHILE AWAKE PRN (Reason: sob) 90 Days Qty: 180 0RF amlodipine 5 mg Tablet 5 mg PO DAILY Qty: 90 0RF Protocol: Hold for SBP< HOLD for SBP < : 90 aspirin 81 mg Tablet,Delayed Release (Dr/Ec) 81 mg PO DAILY Qty: 90 0RF prednisone 20 mg Tablet 40 mg PO DAILY Qty: 10 0RF (DME) nebulizer and compressor Device See Rx Instructions .Route Qty: 1 0RF Rx Instructions: As directed codeine-guaifenesin 8-200 mg/5 mL liquid 5 ml PO Q6H PRN (Reason: cough) Qty: 473 0RF prazosin 2 mg capsule 2 mg PO BEDTIME (DME) Oxygen Home Use Kit See Rx Instructions .ROUTE Rx Instructions: As directed Stiolto Respimat 2.5-2.5 mcg/actuation mist 2 puff inhalation DAILY 30 Days Qty: 4 11RF Print Language: Nigerien
[2023-12-23 22:44] LABS: Glucose, Whole Blood 114 mg/dL (60-115)
[2023-12-23 22:47] LABS: MANUAL DIFF FLAG NO
[2023-12-23 22:48] LABS: Basophils Absolute Auto 0.1 X10*3/uL (0.0-0.2); Basophils Percent Auto 0.4 % (0-2); Eosinophils Absolute Auto 0.5 X10*3/uL (0.0-0.4); Eosinophils Percent Auto 3.6 % (0-4); Hematocrit 42.1 % (37.0-47.0); Hemoglobin 14.1 g/dl (12.0-16.0); Imm Gran Pct Auto 1.4 % (0.0-0.4); Lymphocytes Absolute Auto 2.6 X10*3/uL (1.2-4.9); Lymphocytes Percent Auto 18.2 % (20-40); Mean Corpuscular HGB Conc 33.5 g/dl (31.0-35.0); Mean Corpuscular Hemoglobin 32.9 pg (27.0-33.0); Mean Corpuscular Volume 98.4 fL (80.0-98.0); Mean Platelet Volume 8.9 fL (9.4-12.3); Monocytes Absolute Auto 1.3 X10*3/uL (0.1-1.2); Monocytes Percent Auto 9.2 % (2-11); Neutrophils Absolute Auto 9.7 x10*3/uL (2.0-8.3); Neutrophils Percent Auto 67.2 % (45-73); Platelet Count 392 X10*3/uL (160-400); Red Blood Count 4.28 X10*6/uL (4.20-5.50); Red Cell Distribution Width 14.8 % (11.0-16.0); White Blood Count 14.5 X10*3/uL (4.8-10.8)
[2023-12-23 22:49] VITALS: BP 155/73; PULSE 97; RESP 22; TEMP 36.8; O2SAT 93
[2023-12-23 22:49] LABS: Venous Blood Gas Refer to POC result
[2023-12-23 22:50] LABS: VBG Base Excess 2.8 mmol/L; VBG HCO3 30 mmol/L (22-26); VBG pCO2 57 mmHg; VBG pH 7.32 (7.32-7.43); VBG pO2 69 mmHg
[2023-12-23] MEDS: Albuterol Sulfate 7.5 MG, Albuterol/Iprat 2.5/0.5MG 3 ML 3 ML INHALE (22:50)
[2023-12-23 22:53] VITALS: PULSE 95; RESP 29; O2SAT 93
[2023-12-23] MEDS: methylPREDNISolone Sod Succ 125 MG/2 ML VIAL IVPUSH (22:53)
[2023-12-23] MEDS: Magnesium Sulfate/H2O 2 GM/50 ML PIGGYBACK IV (22:53)
[2023-12-23] MEDS: 0.9 % Sodium Chloride 2,000 ML 999 ML IVCONT (22:54)
[2023-12-23 22:59] LABS: Lactic Acid 1.7 mmol/L (0.5-2.0)
[2023-12-23 23:03] LABS: COVID-19 Test Negative (Negative); IDNOW Serial# 08D9AD1C
[2023-12-23 23:05] LABS: IDNOW Serial# 152EDE1D; Influenza A Negative (Negative); Influenza B2 Negative (Negative)
[2023-12-23 23:07] LABS: B Type Natriuretic Peptide 66 pg/mL (<100)
[2023-12-23] MEDS: levoFLOXacin/D5W 500 MG/100 ML PIGGYBACK 100 MG IV (23:08)
[2023-12-23 23:12] LABS: INTERNATIONAL NORM RATIO 0.8 (0.9-1.1); Prothrombin Time 9.6 SEC (11.1-13.3)
[2023-12-23 23:35] LABS: Alanine Aminotransferase 34 U/L (0-31); Albumin Level 4.1 g/dL (3.5-5.0); Alkaline Phosphatase 69 U/L (39-117); Anion Gap 14 (12-20); Aspartate Amino Transferase 30 U/L (5-31); Bilirubin Direct < 0.2 mg/dL (0.0-0.5); Bilirubin Total 0.2 mg/dL (0.0-1.0); Blood Urea Nitrogen 13 mg/dL (9-16); Carbon Dioxide 22 mmol/L (22-29); Chloride 112 mmol/L (96-108); Creatinine Clr Calc Pharmacy 83.9; Estimated Glomerular Filt Rate > 60; Glucose Random 130 mg/dL (60-115); Magnesium 2.6 mg/dL (1.6-2.6); Potassium 4.3 mmol/L (3.3-5.1); Sodium 144 mmol/L (135-145); Total Protein 6.4 g/dL (6.5-8.0)
[2023-12-23 23:39] LABS: Troponin-I High Sensitivity 120.6 ng/L (<3.5-17.0)
[2023-12-24] VITALS (14 sets, daily range): BP systolic 124–159; BP diastolic 44–69; PULSE 72–91; RESP 16–22; TEMP 36.4–36.6; O2SAT 92–98; BMI 36.4
[2023-12-24] MEDS: Albuterol Sulfate 7.5 MG, Albuterol Sulfate (0.083%) 2.5 MG 10 MG INHALE (00:01)
[2023-12-24] MEDS: DULoxetine HCl 60 MG CAPSULE.DR PO ×3 (01:35→20:38)
[2023-12-24] MEDS: Prazosin HCL 1 MG CAPSULE 2 MG PO ×2 (01:35→21:55)
[2023-12-24] MEDS: Atorvastatin Calcium 80 MG TABLET PO ×2 (01:36→20:38)
[2023-12-24] MEDS: Baclofen 10 MG TABLET PO ×4 (01:36→20:38)
[2023-12-24] MEDS: OXcarbazepine 300 MG TABLET 600 MG PO ×3 (01:36→20:38)
[2023-12-24] MEDS: Gabapentin 400 MG CAPSULE 1200 MG PO ×3 (01:37→20:38)
[2023-12-24] MEDS: LORazepam 1 MG TABLET PO (01:41)
--- NOTE | 2023-12-24 01:41 | P.HPHOSP_ITS ---
History of Present Illness Date of Service: 12/24/23 Attending physician on admission: Desiree Peoples Chief Complaint: Shortness of breaths Zulma Alves is a delightful 58 years old woman with past medical history significant for COPD -on home oxygen, chronic hypoxic respiratory failure and hyperlipidemia and hyperlipidemia was brought to the emergency department via EMS due to worsening shortness of breath, wheezing and productive cough of green sputum. She also reported chest tightness. She tried multiple nebs at home without significant improvement of symptoms. Did not report any headache, abdominal pain, nausea, vomiting, diarrhea, fevers or chills. She is ongoing tobacco smoker. Denies illicit drug use. Consumes edible marijuana in occasions. EMS intervention: CPAP, breathing treatment and nitro paste. In the ED, she was found to have significant tachypnea and tachycardia. Blood pressure and temperature are normal. She is currently requiring 2 L/min supplemental O2 via nasal cannula. Blood workup showed leukocytosis of 14.5. Hemoglobin and platelets are normal. INR 0.8. Troponin is 120.6. BNP is 66. Venous blood gas showed pH of 7.32 and pCO2 57. ECG showed normal sinus rhythm with a heart rate [address] abnormalities. CXR is negative. ED tx: Solu-Medrol 125 mg IV, magnesium 2 g IV, NS 2 L IV, levofloxacin 500 mg p.o. IV, albuterol nebs Review of Systems 2 Review of Systems: All 12 systems were reviewed and normal except as noted in HPI. COUNTS INCLUDE 234 BEDS AT THE [facility] Medical History COPD (chronic obstructive pulmonary disease) Chronic hypercapnic respiratory failure Trigeminal neuralgia Pulmonary nodules Mixed hyperlipidemia Peripheral neuropathy Tobacco use disorder Mood disorder Surgical History History of esophagogastroduodenoscopy (EGD) History of colonoscopy History of lumbar discectomy History of tubal ligation History of excision of mass History of shoulder surgery Social History Household Members: Spouse Housing: Condominium Do you presently have visiting nurse or other home services: No Alcohol intake: current Alcohol intake frequency: holidays/special occasions only Alcohol type: wine Comment: pt refuse bed alarm Patient Tobacco Use Status: Current everyday Tobacco user Tobacco use type: Cigarette Cigarette Packs Per Day: 1 Cigarettes Per Day: 20.0 Smoked in Last 30 Days: Yes e-Cigarette/Vaping Use: Never Used Second Hand Smoke Exposure: No Use of substances other than those prescribed or required for medical reasons: Yes Substance Use Type: Marijuana Substance Use Frequency: Chronic Longstanding Advance Directives: Yes Advance Directives on File: Yes Advance Directives Date on File: 03/09/23 Do you have a plan to hurt others: No Plan Patient : No service: No Meds Allergies Allergy/AdvReac Type Severity Reaction Status Date / Time Iodinated Contrast Media Allergy Intermediate HIVES Verified 12/23/23 22:38 [IV CONTRAST] acetaminophen [From VICODIN] Allergy Unknown VOMITING Verified 12/23/23 22:38 hydrocodone [From VICODIN] Allergy Unknown VOMITING Verified 12/23/23 22:38 latex [LATEX] Allergy Unknown RASH Verified 12/23/23 22:38 oxycodone [From PERCOCET] Allergy Unknown VOMITING Verified 12/23/23 22:38 procaine [From Novocain] Allergy Unknown HIVES Verified 12/23/23 22:38 morphine [MORPHINE] AdvReac Unknown VOMITING Verified 12/23/23 22:38 Active Medications: Current Medications Acetaminophen (Acetaminophen 325 Mg Tablet) 975 mg PO Q6H PRN PRN Reason: Pain, Mild (Pain Scale 1-3), fever or headache Albuterol Sulfate (Albuterol Sulfate (0.083%) 2.5 Mg/3 Ml Vial.Santa) 2.5 mg INHALE Q2H PRN PRN Reason: Shortness of Breath/Wheezing Amlodipine Besylate (Amlodipine Besylate 5 Mg Tablet) 5 mg PO DAILY ON LICENSE OF [facility]; Protocol Aspirin (Aspirin Enteric Coated 81 Mg Tablet.) 81 mg PO DAILY ON LICENSE OF [facility] Atorvastatin Calcium (Atorvastatin Calcium 80 Mg Tablet) 80 mg PO BEDTIME ON LICENSE OF [facility] Last Admin: 12/24/23 01:36 Dose: 80 mg Baclofen (Baclofen 10 Mg Tablet) 10 mg PO TID ON LICENSE OF [facility] Last Admin: 12/24/23 01:36 Dose: 10 mg Calcium Carbonate/Cholecalciferol (Calcium + Vitamin D 250 Mg Tablet) 250 mg PO DAILY ON LICENSE OF [facility] Duloxetine HCl (Duloxetine Hcl 60 Mg Capsule.) 60 mg PO BID ON LICENSE OF [facility] Last Admin: 12/24/23 01:35 Dose: 60 mg Enoxaparin Sodium (Enoxaparin Sodium 40 Mg/0.4 Ml Syringe) 40 mg SUBCUT Q24H [place] Gabapentin (Gabapentin 400 Mg Capsule) 1,200 mg PO TID ON LICENSE OF [facility] Last Admin: 12/24/23 01:37 Dose: 1,200 mg Ipratropium [place] (Ipratropium [place] 1 Puff/17 Mcg Inhaler) 4 puff INHALE RQ4H WHILE AWAKE ON LICENSE OF [facility] Levofloxacin (Levofloxacin 500 Mg Tablet) 500 mg PO Q24H [place] Lorazepam (Lorazepam 1 Mg Tablet) 1 mg PO DAILY PRN PRN Reason: Anxiety Last Admin: 12/24/23 01:41 Dose: 1 mg Magnesium Hydroxide (Milk Of Magnesia 30 Ml Oral.Susp) 30 ml PO DAILY PRN PRN Reason: Constipation Methylprednisolone Sodium Succinate (Methylprednisolone Sod Succ 40 Mg/Ml Vial) 40 mg IVPUSH TID ON LICENSE OF [facility] Non-Formulary Medication (Codeine-Guaifenesin) 5 ml PO Q6H PRN PRN Reason: cough Oxcarbazepine (Oxcarbazepine 300 Mg Tablet) 600 mg PO BID ON LICENSE OF [facility] Last Admin: 12/24/23 01:36 Dose: 600 mg Prazosin HCl (Prazosin Hcl 1 Mg Capsule) 2 mg PO BEDTIME ON LICENSE OF [facility]; Protocol Last Admin: 12/24/23 01:35 Dose: 2 mg Prednisone (Prednisone 20 Mg Tablet) 40 mg PO DAILY ON LICENSE OF [facility] Sodium Chloride (0.9 % Sodium Chloride Flush 3 Ml Syringe) 3 ml IVFLUSH QSHIFT ON LICENSE OF [facility] Home Medications ?Medication ?Instructions ?Recorded ?Confirmed ?Last Taken ?Type atorvastatin 80 mg tablet 80 mg PO BEDTIME 03/04/23 12/23/23 12/09/23 21:00 History baclofen 10 mg tablet 10 mg PO TID 03/04/23 12/23/23 12/09/23 21:00 History [id number]-[id number] 1 tab PO DAILY PRN Headache 03/04/23 12/23/23 12/09/23 21:00 History 50 mg-325 mg-40 mg tablet duloxetine 60 mg capsule,delayed 60 mg PO BID 03/04/23 12/23/23 12/09/23 21:00 History release gabapentin 300 mg capsule 1,200 mg PO TID 03/04/23 12/23/23 12/09/23 21:00 History hydrocodone 5 mg-acetaminophen 325 1 tab PO DAILY PRN Pain 03/04/23 12/23/23 12/09/23 21:00 History mg tablet hyoscyamine sulfate 0.125 mg tablet 0.125 - 0.25 mg PO Q4-6H PRN 03/04/23 12/23/23 12/09/23 21:00 History Abdominal Discomfort lorazepam 1 mg tablet 1 mg PO DAILY PRN Anxiety 03/04/23 12/23/23 12/09/23 21:00 History oxcarbazepine 600 mg tablet 600 mg PO BID 03/04/23 12/23/23 12/09/23 21:00 History Oxygen Home Use 04/16/23 12/23/23 Unknown History prazosin 2 mg capsule 2 mg PO BEDTIME 04/16/23 12/23/23 12/09/23 21:00 History albuterol sulfate 90 mcg/actuation 2 inh inhalation Q4H PRN shortness 11/15/23 12/23/23 12/09/23 21:00 History aerosol inhaler of breath or wheezing calcium carbonate 600 mg-vitamin 1 tab PO DAILY 11/15/23 12/23/23 12/09/23 21:00 History D3 5 mcg (200 unit) tablet Physical Exam 2 Vital Signs and Narrative: Vital Signs: Last Vital Signs Temp 97.9 F 12/24/23 01:35 Pulse 86 12/24/23 01:35 Resp 22 H 12/24/23 01:35 BP 127/51 L 12/24/23 01:35 Pulse Ox 92 12/24/23 01:35 O2 Del Method Room Air, Nasal C annula 12/24/23 01:35 O2 Flow Rate 4 12/24/23 01:35 Oxygen Flow Rate 3 12/23/23 22:36 BMI result Body Mass Index 35.8 Constitutional - Awake and Alert, No apparent distress. Nasal cannula in place. Pleasant. Cooperative. HEENT - PERRL, EOMI. Normal sclerae. Neck: Surgical scar noted (left-side). Heart - RRR, (+) murmur Lungs - Normal lung expansion, Normal respiratory effort. Tachypnea. Bilateral end expiratory wheezes and rhonchi. No crackles. Abdomen - NT / ND; +BS; No rebound or guarding Extremities - no calf tenderness bilaterally, no swelling Musculoskeletal - Normal inspection, normal ROM Skin - Warm/Dry Neurological - Alert & oriented x3. No focal weakness grossly noted. Normal speech. Psychological - Appropriate affect Results Labs 12/23/23 22:38 12/23/23 23:00 Labs: Laboratory Results - last 24 hr 12/23/23 12/23/23 12/23/23 22:37 22:38 22:39 MCV 98.4 H MCH 32.9 MCHC 33.5 RDW 14.8 Plt Count 392 MPV 8.9 L Immature Gran % (Auto) 1.4 H Neut % (Auto) 67.2 Lymph % (Auto) 18.2 L [place] % (Auto) 9.2 Eos % (Auto) 3.6 Baso % (Auto) 0.4 Lymph # (Auto) 2.6 [place] # (Auto) 1.3 H Eos # (Auto) 0.5 H Baso # (Auto) 0.1 Abs Immat Gran (auto) 0.20 H Absolute Neuts (auto) 9.7 H Absolute Nucleated RBC 0.000 Nucleated RBC % (auto) 0.0 PT INR VBG pH VBG pCO2 VBG pO2 VBG HCO3 VBG O2 Saturation VBG Base Excess Anion Gap Estim Creat Clear Calc Estimated GFR POC Glucose 114 Random Glucose Lactic Acid 1.7 Calcium Magnesium Total Bilirubin Direct Bilirubin AST ALT Alkaline Phosphatase Troponin I High Sens B-Natriuretic Peptide 66 Total Protein Albumin COVID-19 (SONAL) Negative COVID-19 Clin Com See Note Influenza Type A (DERREK) Negative Influenza Type B (DERREK) Negative Influenza A & B Note See Note 12/23/23 12/23/23 22:43 23:00 MCV MCH MCHC RDW Plt Count MPV Immature Gran % (Auto) Neut % (Auto) Lymph % (Auto) Pine % (Auto) Eos % (Auto) Baso % (Auto) Lymph # (Auto) Pine # (Auto) Eos # (Auto) Baso # (Auto) Abs Immat Gran (auto) Absolute Neuts (auto) Absolute Nucleated RBC Nucleated RBC % (auto) PT 9.6 L INR 0.8 L VBG pH 7.32 VBG pCO2 57 VBG pO2 69 VBG HCO3 30 H VBG O2 Saturation 91.0 VBG Base Excess 2.8 Anion Gap 14 Estim Creat Clear Calc 83.9 Estimated GFR > 60 POC Glucose Random Glucose 130 H Lactic Acid Calcium 9.0 D Magnesium 2.6 Total Bilirubin 0.2 Direct Bilirubin < 0.2 AST 30 ALT 34 H Alkaline Phosphatase 69 Troponin I High Sens 120.6 H* D B-Natriuretic Peptide Total Protein 6.4 L Albumin 4.1 COVID-19 (SONAL) COVID-19 Clin Com Influenza Type A (DERREK) Influenza Type B (DERREK) Influenza A & B Note Imaging Radiologist's Impressions: Impressions Chest X-Ray 12/23/23 22:43 IMPRESSION: No acute cardiopulmonary disease. Assessment and Plan (1) Hypertension: Qualifiers: Hypertension type: primary hypertension Qualified Code(s): I10 - Essential (primary) hypertension Status: Acute (2) Mood disorder: Status: Acute (3) Mixed hyperlipidemia: Status: Acute Plan Zulma Alves is a 58 years old woman admitted with: * Hypoxic respiratory failure secondary to acute exacerbation of chronic obstructive pulmonary disease. Admit to hospitalist service. Telemetry. Pulse oximetry. Supplemental O2 to keep O2 sats > 90%. Continue empiric IV antibiotic therapy with Levaquin, IV steroids and bronchodilator therapy. * History of NSTEMI + elevated troponin, likely demand ischemia. Recheck troponin. Recent TTE showed no hypokinesis/akinesis. Previously evaluated by cnc set up operator, there is a plan to perform stress test as an outpatient. Continue aspirin and statin. Avoid beta blockers due to marked bronchospastic disease. * Hyperlipidemia. Continue statin. * Occipital/trigeminal neuralgia. Continue baclofen, gabapentin oxcarbazepine and duloxetine. * Essential hypertension. Continue prazosin and amlodipine. * Anxiety. Ativan as needed. DVT prophylaxis: Heparin Code status: Full Patient will need hospitalization for at least 2 midnights for hypoxic respiratory failure treatment with supplemental oxygen, bronchodilator therapy, IV antibiotics and IV steroids. Quality Stroke Does the patient have a stroke diagnosis?: No VTE Prior VTE?: No VTE Risk Level:: Medical - moderate - high VTE Device Contraindication: Treatment Not Indicated VTE Drug Contraindication: Patient Refused
--- NOTE | 2023-12-24 05:05 | PC.NURSE ---
pt c/o of nam, but states, that she just needs to reposition. Removed the nitropaste from LCW, pt transfer to a bed, from the stretcher, pt was able to stand and pivot, by herself, no shortneed of breath noted, at this time. After moving to the bed, and getting comfortable, pt dened a nam. informed pt to call, if the nam, came back
[2023-12-24 05:36] LABS: Basophils Absolute Auto 0.1 X10*3/uL (0.0-0.2); Basophils Percent Auto 0.3 % (0-2); Eosinophils Percent Auto 0.1 % (0-4); Hematocrit 40.3 % (37.0-47.0); Hemoglobin 13.4 g/dl (12.0-16.0); Imm Gran Abs Auto 0.16 X10*3/uL (0.00-0.03); Lymphocytes Absolute Auto 0.4 X10*3/uL (1.2-4.9); Lymphocytes Percent Auto 2.7 % (20-40); MANUAL DIFF FLAG SCAN; Mean Corpuscular HGB Conc 33.3 g/dl (31.0-35.0); Mean Corpuscular Hemoglobin 32.4 pg (27.0-33.0); Mean Corpuscular Volume 97.3 fL (80.0-98.0); Mean Platelet Volume 9.3 fL (9.4-12.3); Monocytes Absolute Auto 0.2 X10*3/uL (0.1-1.2); Neutrophils Absolute Auto 15.3 x10*3/uL (2.0-8.3); Neutrophils Percent Auto 94.9 % (45-73); Platelet Count 390 X10*3/uL (160-400); Red Blood Count 4.14 X10*6/uL (4.20-5.50); Red Cell Distribution Width 14.9 % (11.0-16.0); SCAN SMEAR FLAG 1; White Blood Count 16.1 X10*3/uL (4.8-10.8)
[2023-12-24 05:49] LABS: Anion Gap 15 (12-20); Blood Urea Nitrogen 11 mg/dL (9-16); Calcium 8.7 mg/dL (8.4-10.2); Carbon Dioxide 22 mmol/L (22-29); Chloride 110 mmol/L (96-108); Creatinine Clr Calc Pharmacy 88.9; Estimated Glomerular Filt Rate > 60; Glucose Random 158 mg/dL (60-115); Potassium 4.1 mmol/L (3.3-5.1); Sodium 143 mmol/L (135-145)
--- NOTE | 2023-12-24 05:54 | PC.NURSE ---
Pt came from home, with SOB, pt was on CPAP, on arrival. Pt is now, on O2@2.5L/NC, and tolerating well. Pt was given fluids, Levoflaxin, steroids, mag. and breathing tx IV in RAC, VSS . CXR clear, blood cultures done, Pt was D/C from the floor after being in ICU for NSTEMI, and COPD, on 12/15/23. Pt is a smoker. Pt was able to stand and pivot, transferring from stretcher, to bed.
[2023-12-24 06:05] LABS: Troponin-I High Sensitivity 553.6 ng/L (<3.5-17.0)
[2023-12-24 06:06] LABS: SLIDE REVIEW VERIFIED
[2023-12-24] MEDS: Albuterol/Iprat 2.5/0.5MG 3 ML AMPUL.NEB INHALE ×4 (07:30→19:44)
--- NOTE | 2023-12-24 08:05 | PHA.MEDREC ---
Addendum entered by Gina Martel [facility] 12/24/23 08:39: med rec reviewed Original Note: Pharmacy Consult ? Medication Reconciliation Pharmacy has completed the medication reconciliation. Confirmed medications with patient, great historian knew all of them with dosing off the top of her head. She confirmed she is done with her Prednisone regimen. Also I asked her if she was still taking her Calcium Carbonate- Vitamin D3 and she stated she is suppose to be on it but has not taken it since the end of November due to her forgetting about it but she is starting it up again. Patient also states they take a 5mg Medical Marijuana Edible sometimes at night before bed for her pain but she said she did not take one last night.
--- NOTE | 2023-12-24 10:13 | PC.NURSE ---
attempted to give patient her morning medications, patient states she takes more than what we were providing her with. states she does not wish to take any of her medications at this time until we figure out what is going on. otherwise, patient is alert and oriented, respirations even and unlabored. oxygen 91% on room air, patient states she is feeling improvement at this time.
[2023-12-24] MEDS: 0.9 % Sodium Chloride Flush 3 ML SYRINGE IVFLUSH ×2 (10:15→20:39)
[2023-12-24] MEDS: methylPREDNISolone Sod Succ 40 MG/ML VIAL IVPUSH ×3 (10:15→20:38)
--- NOTE | 2023-12-24 10:19 | P.CONCA_ITS ---
History of Present Illness History of Present Illness Date of Service: 12/24/23 Chief complaint: Hypoxic respiratory failure Narrative: [age] year female who was admitted in December with COPD exacerbation with mild troponin elevation which was felt to be type 2 injury and it was planned that she will get an outpatient stress test. She is now presenting again with shortness of breath and wheezing and has not been noticed to have mildly elevated troponin levels again. EKG has no dynamic changes. She is denying chest discomfort. She said she was feeling somewhat better when she left but over the next few days she started having breathing issues again. She is wheezing. She is a smoker and has been smoking. Mild peripheral edema is noted. [facility] Past Medical History Medical History (Updated 12/24/23 @ 11:43 by Eladio Nelson MD) Elevated troponin COPD (chronic obstructive pulmonary disease) Chronic hypercapnic respiratory failure Trigeminal neuralgia Pulmonary nodules Mixed hyperlipidemia Peripheral neuropathy Tobacco use disorder Mood disorder Surgical History Surgical History History of esophagogastroduodenoscopy (EGD) History of colonoscopy History of lumbar discectomy History of tubal ligation History of excision of mass History of shoulder surgery Social History Social History Household Members: Spouse Housing: Condominium Do you presently have visiting nurse or other home services: No Alcohol intake: current Alcohol intake frequency: holidays/special occasions only Alcohol type: wine Comment: pt refuse bed alarm Patient Tobacco Use Status: Current everyday Tobacco user Tobacco use type: Cigarette Cigarette Packs Per Day: 1 Cigarettes Per Day: 20.0 Smoked in Last 30 Days: Yes e-Cigarette/Vaping Use: Never Used Second Hand Smoke Exposure: No Use of substances other than those prescribed or required for medical reasons: Yes Substance Use Type: Marijuana Substance Use Frequency: Chronic Longstanding Advance Directives: Yes Advance Directives on File: Yes Advance Directives Date on File: 03/09/23 Do you have a plan to hurt others: No Plan Patient : No service: No Meds Allergies Allergy/AdvReac Type Severity Reaction Status Date / Time Iodinated Contrast Media Allergy Intermediate HIVES Verified 12/23/23 22:38 [IV CONTRAST] acetaminophen [From VICODIN] Allergy Unknown VOMITING Verified 12/23/23 22:38 hydrocodone [From VICODIN] Allergy Unknown VOMITING Verified 12/23/23 22:38 latex [LATEX] Allergy Unknown RASH Verified 12/23/23 22:38 oxycodone [From PERCOCET] Allergy Unknown VOMITING Verified 12/23/23 22:38 procaine [From Novocain] Allergy Unknown HIVES Verified 12/23/23 22:38 morphine [MORPHINE] AdvReac Unknown VOMITING Verified 12/23/23 22:38 Active Medications: Current Medications Acetaminophen (Acetaminophen 325 Mg Tablet) 975 mg PO Q6H PRN PRN Reason: Pain, Mild (Pain Scale 1-3), fever or headache Albuterol Sulfate (Albuterol Sulfate (0.083%) 2.5 Mg/3 Ml Vial.Neb) 2.5 mg INHALE Q2H PRN PRN Reason: Shortness of Breath/Wheezing Albuterol/Ipratropium (Albuterol/Iprat 2.5/0.5mg 3 Ml Ampul.Neb) 3 ml INHALE RQ4H WHILE AWAKE [facility] Last Admin: 12/24/23 07:30 Dose: 3 ml Amlodipine Besylate (Amlodipine Besylate 5 Mg Tablet) 5 mg PO DAILY [facility]; Protocol Aspirin (Aspirin Enteric Coated 81 Mg Tablet.) 81 mg PO DAILY [facility] Atorvastatin Calcium (Atorvastatin Calcium 80 Mg Tablet) 80 mg PO BEDTIME [facility] Last Admin: 12/24/23 01:36 Dose: 80 mg Baclofen (Baclofen 10 Mg Tablet) 10 mg PO TID [facility] Last Admin: 12/24/23 01:36 Dose: 10 mg Calcium Carbonate/Cholecalciferol (Calcium + Vitamin D 250 Mg Tablet) 250 mg PO DAILY [facility] Duloxetine HCl (Duloxetine Hcl 60 Mg Capsule.) 60 mg PO BID [facility] Last Admin: 12/24/23 01:35 Dose: 60 mg Enoxaparin Sodium (Enoxaparin Sodium 40 Mg/0.4 Ml Syringe) 40 mg SUBCUT Q24H [facility] Levofloxacin (Levofloxacin 500 Mg Tablet) 500 mg PO Q24H [facility] Lorazepam (Lorazepam 1 Mg Tablet) 1 mg PO DAILY PRN PRN Reason: Anxiety Last Admin: 12/24/23 01:41 Dose: 1 mg Magnesium Hydroxide (Milk Of Magnesia 30 Ml Oral.Susp) 30 ml PO DAILY PRN PRN Reason: Constipation Methylprednisolone Sodium Succinate (Methylprednisolone Sod Succ 40 Mg/Ml Vial) 40 mg IVPUSH TID [facility] Last Admin: 12/24/23 10:15 Dose: 40 mg Non-Formulary Medication (Codeine-Guaifenesin) 5 ml PO Q6H PRN PRN Reason: cough Sodium Chloride (0.9 % Sodium Chloride Flush 3 Ml Syringe) 3 ml IVFLUSH QSHIFT [facility] Last Admin: 12/24/23 10:15 Dose: 3 ml Home Medications ?Medication ?Instructions ?Recorded ?Confirmed ?Last Taken ?Type atorvastatin 80 mg tablet 80 mg PO BEDTIME 03/04/23 12/24/23 12/23/23 History baclofen 10 mg tablet 10 mg PO TID 03/04/23 12/24/23 12/23/23 History [id number]-zdmfcagjlzlwl-drmkdjqy 1 tab PO DAILY PRN Headache 03/04/23 12/24/23 12/23/23 History 50 mg-325 mg-40 mg tablet duloxetine 60 mg capsule,delayed 60 mg PO BID 03/04/23 12/24/23 12/23/23 History release gabapentin 300 mg capsule 1,200 mg PO TID 03/04/23 12/24/23 12/23/23 History hydrocodone 5 mg-acetaminophen 325 1 tab PO DAILY PRN Pain 03/04/23 12/24/23 12/23/23 History mg tablet hyoscyamine sulfate 0.125 mg tablet 0.125 - 0.25 mg PO Q4-6H PRN 03/04/23 12/24/23 12/23/23 History Abdominal Discomfort lorazepam 1 mg tablet 0.5 - 1 mg PO DAILY PRN Anxiety 03/04/23 12/24/23 12/23/23 History oxcarbazepine 600 mg tablet 600 mg PO BID 03/04/23 12/24/23 12/23/23 History Oxygen Home Use 04/16/23 12/23/23 Unknown History prazosin 2 mg capsule 2 mg PO BEDTIME 04/16/23 12/24/23 12/23/23 History albuterol sulfate 90 mcg/actuation 2 inh inhalation Q4H PRN shortness 11/15/23 12/24/23 12/23/23 History aerosol inhaler of breath or wheezing calcium carbonate 600 mg-vitamin 1 tab PO DAILY 11/15/23 12/24/23 12/12/23 History D3 5 mcg (200 unit) tablet Physical Exam 2 Vital Signs: Vital Signs: Last Vital Signs Temp 97.5 F 12/24/23 06:00 Pulse 85 12/24/23 08:09 Resp 16 12/24/23 08:09 BP 135/69 12/24/23 08:09 Pulse Ox 93 12/24/23 08:09 O2 Del Method Nasal Cannula 12/24/23 08:09 O2 Flow Rate 3 12/24/23 08:09 Oxygen Flow Rate 3 12/23/23 22:36 BMI result Body Mass Index 35.8 GENERAL APPEARANCE: in no acute distress, pleasant. NECK: no carotid bruit, no jugular venous distention. SKIN: no suspicious lesions, warm and dry. HEART: no murmurs, regular rate and rhythm. LUNGS: clear to auscultation bilaterally. ABDOMEN: soft, nontender. EXTREMITIES: no edema. PERIPHERAL PULSES: equal. NEUROLOGIC: No gross deficits, AAO X 3 Objective Labs and Meds 12/24/23 05:04 12/24/23 05:04 Lab results: Laboratory Results - last 24 hr 12/23/23 12/23/23 12/23/23 22:37 22:38 22:39 WBC 14.5 H RBC 4.28 Hgb 14.1 Hct 42.1 MCV 98.4 H MCH 32.9 MCHC 33.5 RDW 14.8 Plt Count 392 MPV 8.9 L Immature Gran % (Auto) 1.4 H Neut % (Auto) 67.2 Lymph % (Auto) 18.2 L Page % (Auto) 9.2 Eos % (Auto) 3.6 Baso % (Auto) 0.4 Lymph # (Auto) 2.6 Page # (Auto) 1.3 H Eos # (Auto) 0.5 H Baso # (Auto) 0.1 Abs Immat Gran (auto) 0.20 H Absolute Neuts (auto) 9.7 H Absolute Nucleated RBC 0.000 Nucleated RBC % (auto) 0.0 Smear Tech's Comments PT INR VBG pH VBG pCO2 VBG pO2 VBG HCO3 VBG O2 Saturation VBG Base Excess Sodium Potassium Chloride Carbon Dioxide Anion Gap BUN Creatinine Estim Creat Clear Calc Estimated GFR POC Glucose 114 Random Glucose Lactic Acid 1.7 Calcium Magnesium Total Bilirubin Direct Bilirubin AST ALT Alkaline Phosphatase Troponin I High Sens B-Natriuretic Peptide 66 Total Protein Albumin COVID-19 (SONAL) Negative COVID-19 Clin Com See Note Influenza Type A (DERREK) Negative Influenza Type B (DERREK) Negative Influenza A & B Note See Note 12/23/23 12/23/23 12/24/23 22:43 23:00 05:04 WBC 16.1 H RBC 4.14 L Hgb 13.4 Hct 40.3 MCV 97.3 MCH 32.4 MCHC 33.3 RDW 14.9 Plt Count 390 MPV 9.3 L Immature Gran % (Auto) 1.0 H Neut % (Auto) 94.9 H Lymph % (Auto) 2.7 L [place] % (Auto) 1.0 L Eos % (Auto) 0.1 Baso % (Auto) 0.3 Lymph # (Auto) 0.4 L [place] # (Auto) 0.2 Eos # (Auto) 0.0 Baso # (Auto) 0.1 Abs Immat Gran (auto) 0.16 H Absolute Neuts (auto) 15.3 H Absolute Nucleated RBC 0.000 Nucleated RBC % (auto) 0.0 Smear Tech's Comments VERIFIED PT 9.6 L INR 0.8 L VBG pH 7.32 VBG pCO2 57 VBG pO2 69 VBG HCO3 30 H VBG O2 Saturation 91.0 VBG Base Excess 2.8 Sodium 144 143 Potassium 4.3 4.1 Chloride 112 H 110 H Carbon Dioxide 22 22 Anion Gap 14 15 BUN 13 11 Creatinine 0.71 0.67 Estim Creat Clear Calc 83.9 88.9 Estimated GFR > 60 > 60 POC Glucose Random Glucose 130 H 158 H Lactic Acid Calcium 9.0 D 8.7 Magnesium 2.6 Total Bilirubin 0.2 Direct Bilirubin < 0.2 AST 30 ALT 34 H Alkaline Phosphatase 69 Troponin I High Sens 120.6 H* D 553.6 H* D B-Natriuretic Peptide Total Protein 6.4 L Albumin 4.1 COVID-19 (SONAL) COVID-19 Clin Com Influenza Type A (DERREK) Influenza Type B (DERREK) Influenza A & B Note Imaging Radiologist's impression: Impressions Chest X-Ray 12/23/23 22:43 IMPRESSION: No acute cardiopulmonary disease. Assessment and Plan (1) Acute and chronic respiratory failure with hypoxia: Status: Acute (2) Elevated troponin: Status: Resolved Plan 58-year-old female who recently was admitted to [facility] with COPD exacerbation and mild elevation of troponin levels. This was thought to be type 2 mi and plan was to do outpatient stress testing. She again is presenting with worsening shortness of breath. She has mild edema and JVD on examination. She is wheezing and has some crackles. Continue treatment for COPD. Giving 40 mg IV Lasix. We will reassess how she feels after that. If improvement in breathing with diuretics then maybe symptoms are due to COPD and CHF. Mild troponin elevation again. No dynamic EKG changes or chest pain. She already set up for outpatient stress testing which can be pursued as she goes home. Thank you for allowing me to participate in the care of your patient. Please feel free to contact me if you have any questions. Procedures Date of Service Date of Service: 12/24/23
[2023-12-24] MEDS: Aspirin Enteric Coated 81 MG TABLET.DR PO (10:54)
[2023-12-24] MEDS: levoFLOXacin 500 MG TABLET PO (10:54)
[2023-12-24] MEDS: Calcium + Vitamin D 250 MG TABLET PO (10:54)
[2023-12-24] MEDS: amLODIPine Besylate 5 MG TABLET PO (10:54)
[2023-12-24] MEDS: Enoxaparin Sodium 40 MG/0.4 ML SYRINGE SUBCUT (10:55)
[2023-12-24] MEDS: HYDROcodone Bit/Acetam 5/325 TABLET 1 TAB PO (12:56)
[2023-12-24] MEDS: Furosemide 20 MG/2 ML VIAL 40 MG IVPUSH (12:56)
[2023-12-24] MEDS: Azithromycin 500 MG in 0.9 % Sodium Chloride 250 ML 125 MG IV (12:58)
--- NOTE | 2023-12-24 13:25 | MHC.CM.PN ---
Pt lives with her , she told CM that she has services in the home from [facility], and that she needs help with chores, but refuses referral to [facility] due to her previous experience with them. Pt. asked CM if she can go to [facility] at this time. Pt has O2, compressor, and nebulizer from [facility], and she uses a walking stick for ambulation, and has a shower bench. PCP confirmed: Sirisha Huertas, HCP on file and confirmed: Chris. CM to follow and assist with DC plan.
--- NOTE | 2023-12-24 15:32 | PC.NURSE ---
pt refusing bed and chair alarm. PT agreed to Ring before attempting to ambulate. Red socks, high risk fall bracelet and star signage in place.
[2023-12-24] MEDS: guaiFEN/Codeine SF 200/20/10ML 10 ML LIQUID PO (20:41)
[2023-12-25] VITALS (11 sets, daily range): BP systolic 124–176; BP diastolic 64–83; PULSE 74–91; RESP 18–20; TEMP 35.9–36.6; O2SAT 94–100
[2023-12-25] MEDS: Calcium Carbonate 750 MG TAB.CHEW 1500 MG PO (01:51)
[2023-12-25] MEDS: Albuterol Sulfate (0.083%) 2.5 MG/3 ML VIAL.NEB INHALE (01:51)
--- NOTE | 2023-12-25 02:21 | PC.NURSE ---
Pt with coughing episodes causing mild shortness of breath and wheezing. PRN albuterol given.
[2023-12-25] MEDS: Albuterol/Iprat 2.5/0.5MG 3 ML AMPUL.NEB INHALE ×4 (07:58→20:14)
[2023-12-25] MEDS: Gabapentin 400 MG CAPSULE 1200 MG PO ×3 (09:35→17:00)
[2023-12-25] MEDS: OXcarbazepine 300 MG TABLET 600 MG PO ×2 (09:35→17:05)
[2023-12-25] MEDS: DULoxetine HCl 60 MG CAPSULE.DR PO ×2 (09:35→17:00)
[2023-12-25] MEDS: Aspirin Enteric Coated 81 MG TABLET.DR PO (09:36)
[2023-12-25] MEDS: Calcium + Vitamin D 250 MG TABLET PO (09:36)
[2023-12-25] MEDS: amLODIPine Besylate 5 MG TABLET PO ×2 (09:36→20:00)
[2023-12-25] MEDS: Baclofen 10 MG TABLET PO ×3 (09:36→17:00)
[2023-12-25] MEDS: methylPREDNISolone Sod Succ 40 MG/ML VIAL IVPUSH (09:36)
[2023-12-25] MEDS: Enoxaparin Sodium 40 MG/0.4 ML SYRINGE SUBCUT (09:36)
[2023-12-25] MEDS: 0.9 % Sodium Chloride Flush 3 ML SYRINGE IVFLUSH ×3 (09:42→20:01)
[2023-12-25] MEDS: LORazepam 0.5 MG TABLET PO (10:12)
[2023-12-25] MEDS: Azithromycin 500 MG in 0.9 % Sodium Chloride 250 ML 125 MG IV (12:40)
--- NOTE | 2023-12-25 13:58 | PM.PNCARD ---
Subjective Subjective Date of Service: 12/25/23 Interval history: Seen examined at bedside. Breathing is improving. She has bilateral mild wheezes still present. Physical Exam Vital Signs: Last Vital Signs Temp 97.0 F 12/25/23 12:00 Pulse 74 12/25/23 12:00 Resp 18 12/25/23 12:00 BP 159/70 H 12/25/23 12:00 Pulse Ox 100 12/25/23 12:00 O2 Del Method Room Air 12/25/23 12:00 O2 Flow Rate 1 12/25/23 04:00 Oxygen Flow Rate 3 12/23/23 22:36 BMI result Body Mass Index 36.4 GENERAL APPEARANCE: in no acute distress, pleasant. NECK: no carotid bruit, no jugular venous distention. SKIN: no suspicious lesions, warm and dry. HEART: no murmurs, regular rate and rhythm. LUNGS: clear to auscultation bilaterally. ABDOMEN: soft, nontender. EXTREMITIES: no edema. PERIPHERAL PULSES: equal. NEUROLOGIC: No gross deficits, AAO X 3 Objective Labs and Meds 12/24/23 05:04 12/24/23 05:04 Progress Note: A&P Assessment and plan (1) Acute and chronic respiratory failure with hypoxia: Status: Acute Plan [age] year female with mildly elevated troponin level in the setting of acute hypoxic respiratory failure due to underlying lung disease. She is being treated for COPD exacerbation and is improving. Not in heart failure. No further diuretics. As she recovers she should have further workup which is a stress test as outpatient. Thank you for allowing me to participate in the care of your patient. Please feel free to contact me if you have any questions. Time Spent With Patient Time: Total time managing care of this patient today ____ minutes. Progress Note: Quality Stroke Does the patient have a stroke diagnosis?: No Procedures Date of Service Date of Service: 12/25/23
[2023-12-25] MEDS: methylPREDNISolone Sod Succ 125 MG/2 ML VIAL 60 MG IVPUSH ×2 (14:42→20:01)
--- NOTE | 2023-12-25 15:40 | HO.PM.IMPN ---
Subjective Subjective Date of Service: 12/25/23 Interval History: No acute issues overnight. Still able to speak in short sentences only Review of Systems Admits to shortness of breath with minimal exertion Denies chest pain Denies nausea vomiting diarrhea Denies fever chills Physical Exam Vital Signs: Vital Signs: Last Vital Signs Temp 97.0 F 12/25/23 12:00 Pulse 84 12/25/23 15:32 Resp 18 12/25/23 15:32 BP 159/70 H 12/25/23 12:00 Pulse Ox 100 12/25/23 12:00 O2 Del Method Room Air 12/25/23 12:00 O2 Flow Rate 1 12/25/23 04:00 Oxygen Flow Rate 3 12/23/23 22:36 BMI result Body Mass Index 36.4 Const: Other: Awake alert speaking in short sentences Resp: Other: Diminished all marshall with scattered expiratory wheezes increased at bases Cardio: Other: No S4; positive S1-S2; no S3 murmurs rubs or gallops GI: Other: Soft nontender nondistended normoactive bowel sounds Neuro: Other: Cranial nerves 2-12 grossly intact as tested. Motor is 5/5 all extremities. Sensation is intact. Cognition appropriate. Gait not observed Extrem: Other: No edema bilaterally Objective Data Active Medications Acetaminophen (Acetaminophen 325 Mg Tablet) 975 mg PO Q6H PRN PRN Reason: Pain, Mild (Pain Scale 1-3), fever or headache Hydrocodone Bitart/Acetaminophen (Hydrocodone Bit/Acetam 5/325 Tablet) 1 tab PO DAILY PRN PRN Reason: Pain, Severe (Pain Scale 7-10) Last Admin: 12/24/23 12:56 Dose: 1 tab Documented By: EMMETT Albuterol Sulfate (Albuterol Sulfate (0.083%) 2.5 Mg/3 Ml Vial.Neb) 2.5 mg INHALE Q2H PRN PRN Reason: Shortness of Breath/Wheezing Last Admin: 12/25/23 01:51 Dose: 2.5 mg Documented By: ADARSH Albuterol/Ipratropium (Albuterol/Iprat 2.5/0.5mg 3 Ml Ampul.Neb) 3 ml INHALE RQ4H WHILE AWAKE [place] Last Admin: 12/25/23 15:31 Dose: 3 ml Documented By: HO.BLASCL Amlodipine Besylate (Amlodipine Besylate 5 Mg Tablet) 5 mg PO BID [facility]; Protocol Aspirin (Aspirin Enteric Coated 81 Mg Tablet.) 81 mg PO DAILY [facility] Last Admin: 12/25/23 09:36 Dose: 81 mg Documented By: MARC Atorvastatin Calcium (Atorvastatin Calcium 80 Mg Tablet) 80 mg PO BEDTIME [facility] Last Admin: 12/24/23 20:38 Dose: 80 mg Documented By: ADARSH Baclofen (Baclofen 10 Mg Tablet) 10 mg PO TID@0500,1100,1700 [facility] Last Admin: 12/25/23 12:39 Dose: 10 mg Documented By: MARC Calcium Carbonate/Cholecalciferol (Calcium + Vitamin D 250 Mg Tablet) 250 mg PO DAILY [facility] Last Admin: 12/25/23 09:36 Dose: 250 mg Documented By: MARC Duloxetine HCl (Duloxetine Hcl 60 Mg Capsule.) 60 mg PO BID@0500,1700 [facility] Enoxaparin Sodium (Enoxaparin Sodium 40 Mg/0.4 Ml Syringe) 40 mg SUBCUT Q24H [facility] Last Admin: 12/25/23 09:36 Dose: 40 mg Documented By: MARC Gabapentin (Gabapentin 400 Mg Capsule) 1,200 mg PO TID@0500,1100,1700 [facility] Last Admin: 12/25/23 12:38 Dose: 1,200 mg Documented By: MARC Guaifenesin/Codeine Phosphate (Guaifen/Codeine Sf 200/20/10ml 10 Ml Liquid) 10 ml PO TID PRN PRN Reason: cough Last Admin: 12/24/23 20:41 Dose: 10 ml Documented By: ADARSH Azithromycin 500 mg/ Sodium (Chloride) 250 mls @ 125 mls/hr IV Q24H [facility] Last Infusion: 12/25/23 14:44 Dose: Infused Documented By: MARC Lorazepam (Lorazepam 1 Mg Tablet) 1 mg PO DAILY PRN PRN Reason: Anxiety Last Admin: 12/24/23 01:41 Dose: 1 mg Documented By: FRANK Lorazepam (Lorazepam 0.5 Mg Tablet) 0.5 mg PO Q6H PRN PRN Reason: Anxiety Last Admin: 12/25/23 10:12 Dose: 0.5 mg Documented By: MARC Magnesium Hydroxide (Milk Of Magnesia 30 Ml Oral.Susp) 30 ml PO DAILY PRN PRN Reason: Constipation Methylprednisolone Sodium Succinate (Methylprednisolone Sod Succ 125 Mg/2 Ml Vial) 60 mg IVPUSH Q6H [facility] Last Admin: 12/25/23 14:42 Dose: 60 mg Documented By: MARC Oxcarbazepine (Oxcarbazepine 300 Mg Tablet) 600 mg PO BID [facility] Last Admin: 12/25/23 09:35 Dose: 600 mg Documented By: MARC Prazosin HCl (Prazosin Hcl 1 Mg Capsule) 2 mg PO BEDTIME [facility]; Protocol Last Admin: 12/24/23 21:55 Dose: 2 mg Documented By: OSWALDOTYHANK Sodium Chloride (0.9 % Sodium Chloride Flush 3 Ml Syringe) 3 ml IVFLUSH QSHIFT [facility] Last Admin: 12/25/23 09:42 Dose: 3 ml Documented By: MARC Labs 12/24/23 05:04 12/24/23 05:04 Microbiology Microbiology Results: Microbiology 12/23/23 22:55 Blood Culture - Preliminary Blood - Arterial No growth after 24 hours. 12/23/23 22:37 Blood Culture - Preliminary Blood - Arterial No growth after 24 hours. Assessment and Plan (1) Acute and chronic respiratory failure with hypoxia: Status: Acute (2) Hypertension: Status: Acute (3) Acute exacerbation of chronic obstructive airways disease: Status: Acute Plan Zulma Alves is a 58 years old woman admitted with COPD exacerbation slowly responding to therapies 1. Hypoxic respiratory failure secondary to acute exacerbation of COPD -azithromycin (2) -increase methylprednisolone to 60 mg q.6 hours -continue aggressive DuoNeb therapies -titrate O2 to maintain sats greater than or equal to 90% 2. CAD -elevated enzymes on admission likely demand ischemia -outpatient follow-up 3. Occipital/trigeminal neuralgia -continue outpatient therapies -adjust administration time to mimic outpatient dosing 4. Hypertension -acceptable control on current therapies -adjust as indicated Heparin Full Code Patient will require ongoing hospitalization for IV steroids and antibiotics to treat respiratory failure secondary to COPD exacerbation Quality Stroke Does the patient have a stroke diagnosis?: No VTE Prior VTE?: No VTE Risk Level:: Medical - moderate - high VTE Device Contraindication: Treatment Not Indicated VTE Drug Contraindication: Patient Refused
[2023-12-25] MEDS: HYDROcodone Bit/Acetam 5/325 TABLET 1 TAB PO (19:59)
[2023-12-25] MEDS: Atorvastatin Calcium 80 MG TABLET PO (20:00)
[2023-12-25] MEDS: Prazosin HCL 1 MG CAPSULE 2 MG PO (20:01)
[2023-12-25] MEDS: guaiFEN/Codeine SF 200/20/10ML 10 ML LIQUID PO (20:01)
[2023-12-26] VITALS (10 sets, daily range): BP systolic 136–181; BP diastolic 65–76; PULSE 65–92; RESP 18–20; TEMP 36.3–36.9; O2SAT 91–98
[2023-12-26] MEDS: LORazepam 0.5 MG TABLET PO ×2 (00:37→20:44)
[2023-12-26] MEDS: methylPREDNISolone Sod Succ 125 MG/2 ML VIAL 60 MG IVPUSH ×4 (01:55→20:40)
[2023-12-26] MEDS: DULoxetine HCl 60 MG CAPSULE.DR PO ×2 (04:57→17:01)
[2023-12-26] MEDS: Baclofen 10 MG TABLET PO ×3 (04:57→17:01)
[2023-12-26] MEDS: Gabapentin 400 MG CAPSULE 1200 MG PO ×3 (04:57→17:01)
[2023-12-26] MEDS: OXcarbazepine 300 MG TABLET 600 MG PO ×2 (05:04→17:00)
[2023-12-26 07:43] LABS: Basophils Percent Auto 0.1 % (0-2); Hematocrit 40.9 % (37.0-47.0); Hemoglobin 13.6 g/dl (12.0-16.0); Imm Gran Abs Auto 0.12 X10*3/uL (0.00-0.03); Imm Gran Pct Auto 0.8 % (0.0-0.4); Lymphocytes Absolute Auto 0.7 X10*3/uL (1.2-4.9); Lymphocytes Percent Auto 4.5 % (20-40); MANUAL DIFF FLAG SCAN; Mean Corpuscular HGB Conc 33.3 g/dl (31.0-35.0); Mean Corpuscular Hemoglobin 32.3 pg (27.0-33.0); Mean Corpuscular Volume 97.1 fL (80.0-98.0); Mean Platelet Volume 9.2 fL (9.4-12.3); Monocytes Absolute Auto 0.6 X10*3/uL (0.1-1.2); Monocytes Percent Auto 3.8 % (2-11); Neutrophils Absolute Auto 13.9 x10*3/uL (2.0-8.3); Neutrophils Percent Auto 90.8 % (45-73); Platelet Count 372 X10*3/uL (160-400); Red Blood Count 4.21 X10*6/uL (4.20-5.50); SCAN SMEAR FLAG 1; White Blood Count 15.3 X10*3/uL (4.8-10.8)
[2023-12-26] MEDS: Albuterol/Iprat 2.5/0.5MG 3 ML AMPUL.NEB INHALE ×4 (07:58→19:16)
[2023-12-26 08:06] LABS: Albumin Level 4.1 g/dL (3.5-5.0); Anion Gap 16 (12-20); Calcium 9.4 mg/dL (8.4-10.2); Carbon Dioxide 22 mmol/L (22-29); Chloride 104 mmol/L (96-108); Glucose Fasting 205 mg/dL (60-99); Sodium 138 mmol/L (135-145); Total Protein 6.3 g/dL (6.5-8.0)
[2023-12-26 08:08] LABS: SLIDE REVIEW VERIFIED
[2023-12-26] MEDS: 0.9 % Sodium Chloride Flush 3 ML SYRINGE IVFLUSH ×2 (08:20→17:03)
[2023-12-26] MEDS: Calcium + Vitamin D 250 MG TABLET PO (08:20)
[2023-12-26] MEDS: Enoxaparin Sodium 40 MG/0.4 ML SYRINGE SUBCUT (08:20)
[2023-12-26] MEDS: Aspirin Enteric Coated 81 MG TABLET.DR PO (08:20)
[2023-12-26] MEDS: amLODIPine Besylate 5 MG TABLET PO ×2 (08:20→20:44)
[2023-12-26 09:03] LABS: Alanine Aminotransferase 22 U/L (0-31); Alkaline Phosphatase 56 U/L (39-117); Aspartate Amino Transferase 14 U/L (5-31); Bilirubin Total 0.3 mg/dL (0.0-1.0); Blood Urea Nitrogen 12 mg/dL (9-16); Creatinine Clr Calc Pharmacy 84.7; Estimated Glomerular Filt Rate > 60
[2023-12-26] MEDS: Azithromycin 500 MG in 0.9 % Sodium Chloride 250 ML 125 MG IV (11:28)
--- NOTE | 2023-12-26 13:27 | P.PNIM_ITS ---
Subjective Subjective Date of Service: 12/26/23 Interval History: Markedly improved with increased steroids. Able speak in full sentences. No O2 requirement. No acute issues overnight Review of Systems Admits to shortness of breath with minimal exertion Denies chest pain Denies nausea vomiting diarrhea Denies fever chills Physical Exam 2 Vital Signs: Vital Signs: Last Vital Signs Temp 97.6 F 12/26/23 11:58 Pulse 83 12/26/23 11:58 Resp 18 12/26/23 11:58 BP 146/76 H 12/26/23 11:58 Pulse Ox 98 12/26/23 11:58 O2 Del Method Room Air 12/26/23 11:58 O2 Flow Rate 1 12/26/23 07:50 Oxygen Flow Rate 3 12/23/23 22:36 BMI result Body Mass Index 36.4 Const: Other: Awake alert speaking in short sentences Resp: Other: Improved aeration to bases with increased expiratory wheezes Cardio: Other: No S4; positive S1-S2; no S3 murmurs rubs or gallops GI: Other: Soft nontender nondistended normoactive bowel sounds Neuro: Other: Cranial nerves 2-12 grossly intact as tested. Motor is 5/5 all extremities. Sensation is intact. Cognition appropriate. Gait not observed Extrem: Other: No edema bilaterally Objective Data Active Medications Acetaminophen (Acetaminophen 325 Mg Tablet) 975 mg PO Q6H PRN PRN Reason: Pain, Mild (Pain Scale 1-3), fever or headache Hydrocodone Bitart/Acetaminophen (Hydrocodone Bit/Acetam 5/325 Tablet) 1 tab PO DAILY PRN PRN Reason: Pain, Severe (Pain Scale 7-10) Last Admin: 12/25/23 19:59 Dose: 1 tab Documented By: ADARSH Albuterol Sulfate (Albuterol Sulfate (0.083%) 2.5 Mg/3 Ml Vial.Neb) 2.5 mg INHALE Q2H PRN PRN Reason: Shortness of Breath/Wheezing Last Admin: 12/25/23 01:51 Dose: 2.5 mg Documented By: ADARSH Albuterol/Ipratropium (Albuterol/Iprat 2.5/0.5mg 3 Ml Ampul.Neb) 3 ml INHALE RQ4H WHILE AWAKE [place] Last Admin: 12/26/23 11:24 Dose: 3 ml Documented By: FABI Amlodipine Besylate (Amlodipine Besylate 5 Mg Tablet) 5 mg PO BID [facility]; Protocol Last Admin: 12/26/23 08:20 Dose: 5 mg Documented By: MICAELA Aspirin (Aspirin Enteric Coated 81 Mg Tablet.) 81 mg PO DAILY [facility] Last Admin: 12/26/23 08:20 Dose: 81 mg Documented By: MICAELA Atorvastatin Calcium (Atorvastatin Calcium 80 Mg Tablet) 80 mg PO BEDTIME [facility] Last Admin: 12/25/23 20:00 Dose: 80 mg Documented By: ADARSH Baclofen (Baclofen 10 Mg Tablet) 10 mg PO TID@0500,1100,1700 [facility] Last Admin: 12/26/23 11:29 Dose: 10 mg Documented By: MICAELA Calcium Carbonate/Cholecalciferol (Calcium + Vitamin D 250 Mg Tablet) 250 mg PO DAILY [facility] Last Admin: 12/26/23 08:20 Dose: 250 mg Documented By: MICAELA Duloxetine HCl (Duloxetine Hcl 60 Mg Capsule.) 60 mg PO BID@0500,1700 [facility] Last Admin: 12/26/23 04:57 Dose: 60 mg Documented By: ADARSH Enoxaparin Sodium (Enoxaparin Sodium 40 Mg/0.4 Ml Syringe) 40 mg SUBCUT Q24H [facility] Last Admin: 12/26/23 08:20 Dose: 40 mg Documented By: MICAELA Gabapentin (Gabapentin 400 Mg Capsule) 1,200 mg PO TID@0500,1100,1700 [facility] Last Admin: 12/26/23 11:29 Dose: 1,200 mg Documented By: MICAELA Guaifenesin/Codeine Phosphate (Guaifen/Codeine Sf 200/20/10ml 10 Ml Liquid) 10 ml PO TID PRN PRN Reason: cough Last Admin: 12/25/23 20:01 Dose: 10 ml Documented By: ADARSH Azithromycin 500 mg/ Sodium (Chloride) 250 mls @ 125 mls/hr IV Q24H [facility] Last Admin: 12/26/23 11:28 Dose: 125 mls/hr Documented By: MICAELA Lorazepam (Lorazepam 1 Mg Tablet) 1 mg PO DAILY PRN PRN Reason: Anxiety Last Admin: 12/24/23 01:41 Dose: 1 mg Documented By: FRANK Lorazepam (Lorazepam 0.5 Mg Tablet) 0.5 mg PO Q6H PRN PRN Reason: Anxiety Last Admin: 12/26/23 00:37 Dose: 0.5 mg Documented By: ADARSH Magnesium Hydroxide (Milk Of Magnesia 30 Ml Oral.Susp) 30 ml PO DAILY PRN PRN Reason: Constipation Methylprednisolone Sodium Succinate (Methylprednisolone Sod Succ 125 Mg/2 Ml Vial) 60 mg IVPUSH Q6H [facility] Last Admin: 12/26/23 08:19 Dose: 60 mg Documented By: MICAELA Oxcarbazepine (Oxcarbazepine 300 Mg Tablet) 600 mg PO BID [facility] Last Admin: 12/26/23 05:04 Dose: 600 mg Documented By: ADARSH Comments: Per noam [place] to give early Prazosin HCl (Prazosin Hcl 1 Mg Capsule) 2 mg PO BEDTIME [facility]; Protocol Last Admin: 12/25/23 20:01 Dose: 2 mg Documented By: ADARSH Sodium Chloride (0.9 % Sodium Chloride Flush 3 Ml Syringe) 3 ml IVFLUSH QSHIFT [facility] Last Admin: 12/26/23 08:20 Dose: 3 ml Documented By: MICAELA Labs 12/26/23 07:08 12/26/23 07:08 Labs: Laboratory Results - last 24 hr 12/26/23 07:08 MCV 97.1 MCH 32.3 MCHC 33.3 RDW 15.0 Plt Count 372 MPV 9.2 L Immature Gran % (Auto) 0.8 H Neut % (Auto) 90.8 H Lymph % (Auto) 4.5 L [place] % (Auto) 3.8 Eos % (Auto) 0.0 Baso % (Auto) 0.1 Lymph # (Auto) 0.7 L [place] # (Auto) 0.6 Eos # (Auto) 0.0 Baso # (Auto) 0.0 Abs Immat Gran (auto) 0.12 H Absolute Neuts (auto) 13.9 H Absolute Nucleated RBC 0.000 Nucleated RBC % (auto) 0.0 Smear Tech's Comments VERIFIED Anion Gap 16 Estim Creat Clear Calc 84.7 Estimated GFR > 60 Fasting Glucose 205 H Calcium 9.4 D Total Bilirubin 0.3 AST 14 ALT 22 Alkaline Phosphatase 56 Total Protein 6.3 L Albumin 4.1 Microbiology Microbiology Results: Microbiology 12/23/23 22:55 Blood Culture - Preliminary Blood - Arterial No growth after 48 hours. 12/23/23 22:37 Blood Culture - Preliminary Blood - Arterial No growth after 48 hours. Assessment and Plan (1) Acute and chronic respiratory failure with hypoxia: Status: Acute (2) Acute exacerbation of chronic obstructive airways disease: Status: Acute Plan Zulma Alves is a 58 years old woman admitted with COPD exacerbation slowly responding to therapies 1. Hypoxic respiratory failure secondary to acute exacerbation of COPD -azithromycin (3) -increase methylprednisolone to 60 mg q.6 hours -continue aggressive DuoNeb therapies -no longer has O2 requirement 2. CAD -elevated enzymes on admission likely demand ischemia -outpatient follow-up 3. Occipital/trigeminal neuralgia -continue outpatient therapies -excellent response to dosing time change 4. Hypertension -acceptable control on current therapies -adjust as indicated Heparin Full Code Patient will require ongoing hospitalization for IV steroids and antibiotics to treat respiratory failure secondary to COPD exacerbation Quality Stroke Does the patient have a stroke diagnosis?: No VTE Prior VTE?: No VTE Risk Level:: Medical - moderate - high VTE Device Contraindication: Treatment Not Indicated VTE Drug Contraindication: Patient Refused
[2023-12-26] MEDS: guaiFEN/Codeine SF 200/20/10ML 10 ML LIQUID PO (18:24)
[2023-12-26] MEDS: Prazosin HCL 1 MG CAPSULE 2 MG PO (20:43)
[2023-12-26] MEDS: HYDROcodone Bit/Acetam 5/325 TABLET 1 TAB PO (20:43)
[2023-12-26] MEDS: Atorvastatin Calcium 80 MG TABLET PO (20:44)
[2023-12-27] VITALS (12 sets, daily range): BP systolic 145–186; BP diastolic 67–85; PULSE 75–85; RESP 16–22; TEMP 36.1–36.7; O2SAT 91–96
[2023-12-27] MEDS: Baclofen 10 MG TABLET PO ×3 (04:53→16:34)
[2023-12-27] MEDS: Gabapentin 400 MG CAPSULE 1200 MG PO ×3 (04:53→16:34)
[2023-12-27] MEDS: methylPREDNISolone Sod Succ 125 MG/2 ML VIAL 60 MG IVPUSH ×4 (04:53→20:13)
[2023-12-27] MEDS: OXcarbazepine 300 MG TABLET 600 MG PO ×2 (04:53→16:34)
[2023-12-27] MEDS: DULoxetine HCl 60 MG CAPSULE.DR PO ×2 (04:53→16:34)
[2023-12-27] MEDS: Prochlorperazine Edisylate 10 MG/2 ML VIAL 5 MG IVPUSH (05:26)
[2023-12-27] MEDS: LORazepam 2 MG/ML VIAL 0.5 MG IVPUSH (05:27)
[2023-12-27] MEDS: Albuterol Sulfate (0.083%) 2.5 MG/3 ML VIAL.NEB INHALE (05:44)
--- NOTE | 2023-12-27 07:00 | CA_ITS ---
Transthoracic Echocardiogram Patient (Last, First, Middle): Zulma Alves R Gender: Female Date of : 1965 Age: 58 Procedure Date: 12/27/2023 Procedure Type: Transthoracic Echocardiogram Location: [facility] [place] Height: 154.94 cm Weight: 87.09 kg BSA: 1.86 m2 Heart Rate: 80 bpm BP: 153 / 68 mmHg Asian Art Curator: SB Referring MD: Gaudencio Ray DO Structural Design Engineer: Vladimir Thurman MD Symptoms: exertional chest pain Study Quality: Adequate w contrast ECG Rhythm: Sinus Conclusions: - 1. Hyperdynamic LV EF greater than 70% without any regional wall motion abnormality 2. Mild aortic stenosis Findings Procedure Information Contrast agent, definity, is being given per protocol without apparent complications. Left Ventricle Normal left ventricular cavity size. There is normal left ventricular wall thickness. The left ventricular systolic function is hyperdynamic. The visually estimated ejection fraction is >70%. Spectral Doppler is indicative of an impaired relaxation filling pattern. E/E prime ratio is between 8 and 15 consistent with indeterminate filling pressures. possible dynamic obstruction at either LVOT and /or mid cavitary can not be entirely ruled out on this study. Aortic Valve There is mild aortic valve stenosis. Prior Study Comparison No significant change compared to prior study dated: 12/10/2023. Measurements 2D Linear Measurements IVSd: 0.72 0.6-0.9/0.6-1.0 cm LVIDd: 4.57 3.9-5.3/4.2-5.9 cm LVIDd Index: 2.46 2.4-3.2/2.2-3.1 cm/m2 LVIDs: 2.71 2.0-3.6 cm LVPWd: 0.58 0.7-1.1 cm LA Diam: 3.80 2.7-3.8/3.0-4.0 cm LAIDs Index: 2.04 1.5-2.3 cm/m2 LV Mass: 111.09 67-162/88-224 g LV Mass Index: 59.73 43-95/49-115 g/m2 LVOT Diam: 1.80 3.0+(-)1.3 cm 2D Systolic Function EF 4C: 79.70 >55% EF 2C: 80.90 >55% EF BiP: 80.40 >55% Mitral Valve MV Pk E: 0.99 MV PK A: 1.05 MV Decel Time: 196.00 E/A: 0.90 E'Lateral: 8.81 E'Medial: 8.81 E/E' Med: 11.20 E/E' Lat: 11.20 PHT: 58.00 MVA PHT: 3.79 Decel [place]: 5.04 Aortic Valve AoV Pk Griffin: 2.61 AoV Mn Griffin: 1.82 AoV VTI: 0.50 AoV Pk Grad: 27.00 Aov Mn Grad: 15.00 PERICO Cont.VTI: 2.10 LVOT LVOT Pk Griffin: 2.08 LVOT Mn Griffin: 1.48 LVOT VTI: 0.42 LVOT Pk Grad: 17.00 LVOT Mn Grad: 10.00 LVOT Diam: 1.80 LVOT Area: 2.54 Diastolic Function MV Pk E: 0.99 MV Pk A: 1.05 E/A: 0.90 E'Medial: 8.81 E/E' Med: 11.20 E' Laterial: 8.81 E/E' Lat: 11.20 Right Ventricle TAPSE (mm): 21.70 TVS' Griffin: 14.70 Tricuspid Valve TR Pk Griffin: 2.61 TR Pk Grad: 27.00 RA Press: 3.00 RVSP: 30.00 Great Vessels Aorta Sinus of Valsalva: 2.80 2.0-3.5 cm Ao Asc: 2.80 2.1-3.4 cm Pulmonary Valve PV Pk Griffin: 1.02 Peak PV Grad: 4.00 Updated in Other Vendor System with Status of Final Vladimir Thurman MD electronically signed on 12/27/2023 4:46:32 PM with status of Final
[2023-12-27] MEDS: Calcium + Vitamin D 250 MG TABLET PO (09:32)
[2023-12-27] MEDS: Enoxaparin Sodium 40 MG/0.4 ML SYRINGE SUBCUT (09:32)
[2023-12-27] MEDS: 0.9 % Sodium Chloride Flush 3 ML SYRINGE IVFLUSH ×2 (09:32→16:34)
[2023-12-27] MEDS: amLODIPine Besylate 5 MG TABLET PO ×2 (09:32→20:15)
[2023-12-27] MEDS: Aspirin Enteric Coated 81 MG TABLET.DR PO (09:32)
[2023-12-27] MEDS: Azithromycin 500 MG in 0.9 % Sodium Chloride 250 ML 125 MG IV (11:08)
[2023-12-27] MEDS: Isosorbide Mononitrate 30 MG TAB.ER.24H PO (11:08)
[2023-12-27] MEDS: Albuterol/Iprat 2.5/0.5MG 3 ML AMPUL.NEB INHALE ×3 (11:11→19:42)
--- NOTE | 2023-12-27 11:13 | MHC.CM.PN ---
PT rec home with services for pt., pt. is active with [facility], referral / update sent. Pt. may be DC today, CM will follow for DC needs. Pt. will need assistance with transport home.
--- NOTE | 2023-12-27 12:41 | P.PNIM_ITS ---
Subjective Subjective Date of Service: 12/27/23 Interval History: Notes to have exertional chest pain when ambulating to bathroom; resolves when back in bed with oxygen on. Breathing improved Review of Systems Admits to shortness of breath with minimal exertion Admits chest pain with exertion that is relieved by rest and O2 Denies nausea vomiting diarrhea Denies fever chills Physical Exam 2 Vital Signs: Vital Signs: Last Vital Signs Temp 98.0 F 12/27/23 11:16 Pulse 80 12/27/23 11:16 Resp 19 12/27/23 11:16 BP 153/68 H 12/27/23 11:16 Pulse Ox 92 12/27/23 11:16 O2 Del Method Nasal Cannula 12/27/23 11:16 O2 Flow Rate 2 12/27/23 11:16 Oxygen Flow Rate 3 12/23/23 22:36 BMI result Body Mass Index 36.4 Const: Other: Awake alert speaking in short sentences Resp: Other: Improved aeration to bases with minimal expiratory wheezes Cardio: Other: No S4; positive S1-S2; no S3 murmurs rubs or gallops GI: Other: Soft nontender nondistended normoactive bowel sounds Neuro: Other: Cranial nerves 2-12 grossly intact as tested. Motor is 5/5 all extremities. Sensation is intact. Cognition appropriate. Gait not observed Extrem: Other: No edema bilaterally Objective Data Active Medications Acetaminophen (Acetaminophen 325 Mg Tablet) 975 mg PO Q6H PRN PRN Reason: Pain, Mild (Pain Scale 1-3), fever or headache Hydrocodone Bitart/Acetaminophen (Hydrocodone Bit/Acetam 5/325 Tablet) 1 tab PO DAILY PRN PRN Reason: Pain, Severe (Pain Scale 7-10) Last Admin: 12/26/23 20:43 Dose: 1 tab Documented By: TEMI Albuterol Sulfate (Albuterol Sulfate (0.083%) 2.5 Mg/3 Ml Vial.Neb) 2.5 mg INHALE Q2H PRN PRN Reason: Shortness of Breath/Wheezing Last Admin: 12/27/23 05:44 Dose: 2.5 mg Documented By: TONYA Albuterol/Ipratropium (Albuterol/Iprat 2.5/0.5mg 3 Ml Ampul.Neb) 3 ml INHALE RQ4H WHILE AWAKE [facility] Last Admin: 12/27/23 11:11 Dose: 3 ml Documented By: MARYLU Amlodipine Besylate (Amlodipine Besylate 5 Mg Tablet) 5 mg PO BID [facility]; Protocol Last Admin: 12/27/23 09:32 Dose: 5 mg Documented By: KALLI Aspirin (Aspirin Enteric Coated 81 Mg Tablet.) 81 mg PO DAILY [facility] Last Admin: 12/27/23 09:32 Dose: 81 mg Documented By: KALLI Atorvastatin Calcium (Atorvastatin Calcium 80 Mg Tablet) 80 mg PO BEDTIME [facility] Last Admin: 12/26/23 20:44 Dose: 80 mg Documented By: TEMI Baclofen (Baclofen 10 Mg Tablet) 10 mg PO TID@0500,1100,1700 [facility] Last Admin: 12/27/23 11:13 Dose: 10 mg Documented By: KALLI Calcium Carbonate/Cholecalciferol (Calcium + Vitamin D 250 Mg Tablet) 250 mg PO DAILY [facility] Last Admin: 12/27/23 09:32 Dose: 250 mg Documented By: KALLI Duloxetine HCl (Duloxetine Hcl 60 Mg Capsule.) 60 mg PO BID@0500,1700 [facility] Last Admin: 12/27/23 04:53 Dose: 60 mg Documented By: TEMI Enoxaparin Sodium (Enoxaparin Sodium 40 Mg/0.4 Ml Syringe) 40 mg SUBCUT Q24H [facility] Last Admin: 12/27/23 09:32 Dose: 40 mg Documented By: KALLI Gabapentin (Gabapentin 400 Mg Capsule) 1,200 mg PO TID@0500,1100,1700 [facility] Last Admin: 12/27/23 11:13 Dose: 1,200 mg Documented By: KALLI Guaifenesin/Codeine Phosphate (Guaifen/Codeine Sf 200/20/10ml 10 Ml Liquid) 10 ml PO TID PRN PRN Reason: cough Last Admin: 12/26/23 18:24 Dose: 10 ml Documented By: MICAELA Azithromycin 500 mg/ Sodium (Chloride) 250 mls @ 125 mls/hr IV Q24H [facility] Last Admin: 12/27/23 11:08 Dose: 125 mls/hr Documented By: KALLI Isosorbide Mononitrate (Isosorbide Mononitrate 30 Mg Tab.Er.24h) 30 mg PO DAILY [facility]; Protocol Last Admin: 12/27/23 11:08 Dose: 30 mg Documented By: KALLI Lorazepam (Lorazepam 1 Mg Tablet) 1 mg PO DAILY PRN PRN Reason: Anxiety Last Admin: 12/24/23 01:41 Dose: 1 mg Documented By: FRANK Lorazepam (Lorazepam 0.5 Mg Tablet) 0.5 mg PO Q6H PRN PRN Reason: Anxiety Last Admin: 12/26/23 20:44 Dose: 0.5 mg Documented By: TEMI Magnesium Hydroxide (Milk Of Magnesia 30 Ml Oral.Susp) 30 ml PO DAILY PRN PRN Reason: Constipation Methylprednisolone Sodium Succinate (Methylprednisolone Sod Succ 125 Mg/2 Ml Vial) 60 mg IVPUSH Q6H [facility] Last Admin: 12/27/23 09:33 Dose: 60 mg Documented By: KALLI Oxcarbazepine (Oxcarbazepine 300 Mg Tablet) 600 mg PO BID@0500,1700 [facility] Last Admin: 12/27/23 04:53 Dose: 600 mg Documented By: TMEI Prazosin HCl (Prazosin Hcl 1 Mg Capsule) 2 mg PO BEDTIME [facility]; Protocol Last Admin: 12/26/23 20:43 Dose: 2 mg Documented By: TEMI Prochlorperazine Edisylate (Prochlorperazine Edisylate 10 Mg/2 Ml Vial) 5 mg IVPUSH Q4H PRN PRN Reason: Nausea and Vomiting Last Admin: 12/27/23 05:26 Dose: 5 mg Documented By: TEMI Sodium Chloride (0.9 % Sodium Chloride Flush 3 Ml Syringe) 3 ml IVFLUSH QSHIFT [facility] Last Admin: 12/27/23 09:32 Dose: 3 ml Documented By: KALLI Labs 12/26/23 07:08 12/26/23 07:08 Assessment and Plan (1) Acute exacerbation of chronic obstructive airways disease: Status: Acute Plan Zulma Alves is a 58 years old woman admitted with COPD exacerbation slowly responding to therapies 1. Hypoxic respiratory failure secondary to acute exacerbation of COPD -azithromycin (4) - decreased methylprednisolone to 60 mg q.8 hours -continue aggressive DuoNeb therapies -no longer has O2 requirement 2. CAD -elevated enzymes on admission likely demand ischemia; now with exertional chest pressure that is relieved with rest and oxygen - add oral nitrates - check 2D echo - as Cardiology to reassess 3. Occipital/trigeminal neuralgia -continue outpatient therapies -excellent response to dosing time change 4. Hypertension -acceptable control on current therapies -adjust as indicated Heparin Full Code Patient will require ongoing hospitalization for IV steroids and antibiotics to treat respiratory failure secondary to COPD exacerbation Quality Stroke Does the patient have a stroke diagnosis?: No VTE Prior VTE?: No VTE Risk Level:: Medical - moderate - high VTE Device Contraindication: Treatment Not Indicated VTE Drug Contraindication: Patient Refused
--- NOTE | 2023-12-27 18:32 | P.CDIM_ITS ---
PROVIDER RESPONSE TEXT: To clarify, the appropriate diagnosis supported by the clinical indicators: Obesity Due to excess calories QUERY TEXT: PHYSICIAN'S DOCUMENTATION REQUEST Date of Query: 12/27/2023 08:00 AM EDT Patient Name: Zulma Alves Admit Date: 12/24/2023 Dear Gaudencio Ray, A review of the medical record indicates additional documentation may be needed. Please review below and update the documentation accordingly. Clinical Indicators: BMI: 36.4 5ft 1 in Nursing notes Height and Weight: Patient is Obese class II If possible, please provide an associated diagnosis related to the abnormal BMI, such as: Obesity Due to excess calories Obesity Obesity Due to other cause Specify the other cause Other (explain) Clinically unable to determine (explain) Thank you, Hafsa Min, CCS, CDIS Use of terms such as suspected, likely, concern for, or probable (associated with a specific diagnosi s that is being evaluated, monitored, or treated as if it exists) are acceptable and can be coded in the inpatient se tting, when documented at the time of discharge. Please use your independent medical judgment in providing your response. THIS QUERY IS PART OF THE PERMANENT MEDICAL RECORD
[2023-12-27] MEDS: Atorvastatin Calcium 80 MG TABLET PO (20:15)
[2023-12-27] MEDS: Prazosin HCL 1 MG CAPSULE 2 MG PO (20:15)
[2023-12-27] MEDS: Calcium Carbonate 750 MG TAB.CHEW PO (22:46)
[2023-12-27] MEDS: LORazepam 1 MG TABLET PO (22:46)
[2023-12-28] MEDS: methylPREDNISolone Sod Succ 125 MG/2 ML VIAL 60 MG IVPUSH ×2 (02:51→09:00)
[2023-12-28 04:00] VITALS: BP 156/65; PULSE 83; RESP 16; TEMP 36.4; O2SAT 91
[2023-12-28] MEDS: OXcarbazepine 300 MG TABLET 600 MG PO (05:14)
[2023-12-28] MEDS: Baclofen 10 MG TABLET PO ×2 (05:14→10:53)
[2023-12-28] MEDS: DULoxetine HCl 60 MG CAPSULE.DR PO (05:14)
[2023-12-28] MEDS: Gabapentin 400 MG CAPSULE 1200 MG PO ×2 (05:16→10:53)
[2023-12-28] MEDS: Albuterol/Iprat 2.5/0.5MG 3 ML AMPUL.NEB INHALE ×2 (07:25→11:27)
[2023-12-28 07:26] VITALS: PULSE 94; RESP 16; O2SAT 90
[2023-12-28 07:40] VITALS: BP 154/74; PULSE 78; RESP 14; TEMP 36.4; O2SAT 93
[2023-12-28] MEDS: Calcium + Vitamin D 250 MG TABLET PO (08:19)
[2023-12-28] MEDS: amLODIPine Besylate 5 MG TABLET PO (08:19)
[2023-12-28] MEDS: Aspirin Enteric Coated 81 MG TABLET.DR PO (08:19)
[2023-12-28] MEDS: Enoxaparin Sodium 40 MG/0.4 ML SYRINGE SUBCUT (08:19)
[2023-12-28] MEDS: Isosorbide Mononitrate 30 MG TAB.ER.24H PO (08:20)
[2023-12-28] MEDS: 0.9 % Sodium Chloride Flush 3 ML SYRINGE IVFLUSH (08:20)
--- NOTE | 2023-12-28 11:26 | PM.PNCARD ---
Subjective Subjective Date of Service: 12/28/23 Principal diagnosis: NSTEMI, exertional shortness of breath. Interval history: Patient says she still gets short of breath walking the hallway. She is worried about going home as she has a flight of stairs to climb and wants to tested out. Denies any chest pain to me. However she notice that heart rate goes up when she walks. Echocardiogram done yesterday shows hyperdynamic LV systolic function with LVEF of 70% with possible obstructive physiology. There was no evidence of any significant wall motion abnormalities. She has been treated for NSTEMI and this was suspected to be due to acute hypoxemic respiratory failure. Review of Systems Constitutional: Reports no additional constitutional complaints Cardiovascular: Denies chest pain, Reports rapid heart rate (With walking), Denies lightheadedness and Reports dyspnea on exertion Respiratory: Denies cough, Reports dyspnea on exertion and Denies wheezing Skin/Breast: Reports system reviewed and no additional complaints, except as docu Reports system reviewed and no additional complaints, except as documented Allergic/Immunologic: Denies wheezing Physical Exam Vital Signs: Last Vital Signs Temp 97.6 F 12/28/23 07:40 Pulse 78 12/28/23 07:40 Resp 14 12/28/23 07:40 BP 154/74 H 12/28/23 07:40 Pulse Ox 93 12/28/23 07:40 O2 Del Method Room Air 12/28/23 07:40 O2 Flow Rate 2 12/27/23 11:16 Oxygen Flow Rate 3 12/23/23 22:36 BMI result Body Mass Index 36.4 GENERAL APPEARANCE: in no acute distress, pleasant. NECK: no carotid bruit, no jugular venous distention. SKIN: no suspicious lesions, warm and dry. HEART: Early systolic murmur, regular rate and rhythm. LUNGS: clear to auscultation bilaterally. ABDOMEN: soft, nontender. EXTREMITIES: no edema. PERIPHERAL PULSES: equal. NEUROLOGIC: No gross deficits, AAO X 3 Objective Labs and Meds 12/26/23 07:08 12/26/23 07:08 Progress Note: A&P Assessment and plan (1) Elevated troponin: Status: Acute Assessment and Plan: Elevated troponin suggestive of NSTEMI most likely secondary to acute hypoxemic respiratory failure. Underlying obstructive coronary artery disease can not be ruled out. Also could be related to hyperdynamic LV systolic function with maybe obstructive physiology. I would hold off on isosorbide therapy given her obstructive physiology. Will switch her amlodipine to verapamil 120 mg b.i.d. to provide both negative chronotropic and inotropic action as well as an antianginal. Would avoid beta-ed therapy given her severe obstructive airway disease. Continue aspirin, high-intensity statin therapy. Will schedule for vasodilating myocardial perfusion imaging in the near future in couple weeks and follow up in the clinic as planned. Advised to avoid strenuous exertion. Continue aggressive treatment of her underlying COPD. Complete smoking cessation was advised. (2) Acute and chronic respiratory failure with hypoxia: Status: Acute Assessment and Plan: Acute COPD exacerbation is doing better although patient continues to be short of breath which is not unexpected given her advanced pulmonary disease. Continue bronchodilators therapy. Consider switching to Xopenex for her inhaler therapy. Continue steroid completion once she is couple weeks out of her COPD exacerbation was scheduled for outpatient stress test. Will follow with her as outpatient as planned. Time Spent With Patient Time: Total time managing care of this patient today ____ minutes. Progress Note: Quality Stroke Does the patient have a stroke diagnosis?: No Procedures Date of Service Date of Service: 12/28/23
[2023-12-28 11:32] VITALS: PULSE 86; RESP 18; O2SAT 96
[2023-12-28] MEDS: Azithromycin 500 MG in 0.9 % Sodium Chloride 250 ML 125 MG IV (11:36)
[2023-12-28 11:56] VITALS: BP 132/58; PULSE 84; RESP 14; TEMP 36.2; O2SAT 93
--- NOTE | 2023-12-28 12:47 | PM.DS ---
DS: Providers Provider Date of Service: 12/28/23 Date of admission: 12/24/23 01:33 Date of discharge: 12/28/23 Primary care physician: ESTEBAN Christianson Consults: 12/24/23 06:11 Consult to Cardiology Routine Consulting Provider: [facility] [place] [facility] Reason for consultation: Elevated troponin Has provider been notified: Yes DS: Diagnosis Discharge Diagnosis (1) Elevated troponin: Status: Acute (2) Acute and chronic respiratory failure with hypoxia: Status: Acute DS: Summary Hospital Course Hospital Course: 58 years old woman with past medical history significant for COPD -on home oxygen, chronic hypoxic respiratory failure and hyperlipidemia and hyperlipidemia was brought to the emergency department via EMS due to worsening shortness of breath, wheezing and productive cough of green sputum. She also reported chest tightness. She tried multiple nebs at home without significant improvement of symptoms. Did not report any headache, abdominal pain, nausea, vomiting, diarrhea, fevers or chills. She is ongoing tobacco smoker. Denies illicit drug use. Consumes edible marijuana in occasions. EMS intervention: CPAP, breathing treatment and nitro paste. In the ED, she was found to have significant tachypnea and tachycardia. Blood pressure and temperature are normal. She is currently requiring 2 L/min supplemental O2 via nasal cannula. Blood workup showed leukocytosis of 14.5. Hemoglobin and platelets are normal. INR 0.8. Troponin is 120.6. BNP is 66. Venous blood gas showed pH of 7.32 and pCO2 57. ECG showed normal sinus rhythm with a heart rate [address] abnormalities. CXR is negative. ED tx: Solu-Medrol 125 mg IV, magnesium 2 g IV, NS 2 L IV, levofloxacin 500 mg p.o. IV, albuterol nebs Hospital Course Patient admitted to telemetry where monitor failed to show any acute dysrhythmias. Patient did have an initial troponin increase; was seen by Cardiology who felt this was demand in nature and recommended outpatient stress testing. She was maintained on IV pulse dose steroids and received a course of azithromycin. Over the course of the next 72 hours her breathing improved to the point where she was back to her baseline. She was seen by Physical therapy and walked with acceptable sats. At this point she is medically acceptable for discharge to home for follow-up with Cardiology and PCP next available Time Attestation Discharge Coordination Time (in mins): 35 Quality: Safe Use of Opioids Does Pt have an Active Cancer Diagnosis on the Problem List?: No Quality: Stroke Does the patient have a stroke diagnosis?: No Physical Exam Vital Signs: Vital Signs: Last Vital Signs Temp 97.1 F 12/28/23 11:56 Pulse 84 12/28/23 11:56 Resp 14 12/28/23 11:56 BP 132/58 L 12/28/23 11:56 Pulse Ox 93 12/28/23 11:56 O2 Del Method Room Air 12/28/23 11:56 O2 Flow Rate 2 12/27/23 11:16 Oxygen Flow Rate 3 12/23/23 22:36 BMI result Body Mass Index 36.4 Const: Other: Awake alert speaking in short sentences Resp: Other: Improved aeration to bases with minimal expiratory wheezes Cardio: Other: No S4; positive S1-S2; no S3 murmurs rubs or gallops GI: Other: Soft nontender nondistended normoactive bowel sounds Neuro: Other: Cranial nerves 2-12 grossly intact as tested. Motor is 5/5 all extremities. Sensation is intact. Cognition appropriate. Gait not observed Extrem: Other: No edema bilaterally DS: Data Data Completed and Pending Completed studies during hospitalization [Text1]: Procedures Assistance with Respiratory Ventilation, Less than 24 Consecutive Hours, Continuous Positive Airway Pressure (12/10/23) Labs on day of discharge: Preliminary micro results at discharge 12/23/23 22:55 Blood Culture - Preliminary Blood - Arterial No growth after 48 hours. 12/23/23 22:37 Blood Culture - Preliminary Blood - Arterial No growth after 48 hours. Discharge Plan Discharge Anticipated Discharge Date/Time: 12/28/23 12:39 Patient Disposition: Home Health Service Discharge Diagnosis: Acute exacerbation of COPD Referrals: [facility] ROCHA [Outside] - 1 Week Sirisha Huertas FNP-BC [Primary Care Provider] - 1 Week Discharge Medications: New prednisone 10 mg tablet See Rx Instructions .Route .COMPLEX Qty: 45 0RF Rx Instructions: 10 mg orally; 5 tabs p.o. daily x3 days; 4 tabs p.o. daily x3 days; 3 tabs daily x3 days; 2 tabs daily x3 days; 1 tab daily x3 days verapamil 120 mg tablet 120 mg PO BID Qty: 60 1RF Continued atorvastatin 80 mg tablet 80 mg PO BEDTIME hydrocodone-acetaminophen 5-325 mg tablet 1 tab PO DAILY PRN (Reason: Pain) oxnzvslcqx-bufoxwqpckpgx-ykcp 50-325-40 mg tablet 1 tab PO DAILY PRN (Reason: Headache) baclofen 10 mg tablet 10 mg PO TID hyoscyamine sulfate 0.125 mg tablet 0.125 - 0.25 mg PO Q4-6H PRN (Reason: Abdominal Discomfort) gabapentin 300 mg capsule 1,200 mg PO TID oxcarbazepine 600 mg tablet 600 mg PO BID lorazepam 1 mg tablet 0.5 - 1 mg PO DAILY PRN (Reason: Anxiety) duloxetine 60 mg capsule,delayed release(DR/EC) 60 mg PO BID calcium carbonate-vitamin D3 600 mg-5 mcg (200 unit) Tablet 1 tab PO DAILY albuterol sulfate 90 mcg/actuation HFA aerosol inhaler 2 inh inhalation Q4H PRN (Reason: shortness of breath or wheezing) ipratropium-albuterol 0.5 mg-3 mg(2.5 mg base)/3 mL Solution For Nebulization 3 ml inhalation RQ4H WHILE AWAKE PRN (Reason: sob) 90 Days Qty: 180 0RF amlodipine 5 mg Tablet 5 mg PO DAILY Qty: 90 0RF Protocol: Hold for SBP< HOLD for SBP < : 90 aspirin 81 mg Tablet,Delayed Release (Dr/Ec) 81 mg PO DAILY Qty: 90 0RF (DME) nebulizer and compressor Device See Rx Instructions .Route Qty: 1 0RF Rx Instructions: As directed codeine-guaifenesin 8-200 mg/5 mL liquid 5 ml PO Q6H PRN (Reason: cough) Qty: 473 0RF prazosin 2 mg capsule 2 mg PO BEDTIME (DME) Oxygen Home Use Kit See Rx Instructions .ROUTE Rx Instructions: As directed Discharge Orders: Discharge Order (Routine); Ordered 12/28/23 Ordered By: Gaudencio Ray Diet: Advance to usual diet Stand Alone Forms: Patient Portal Discharge page Print Language: Hungarian Care Plan Goals: Continue all medicines as taken prior to hospitalization. A prednisone taper has been added; 5 tabs daily for 3 days, 4 tabs daily for 3 days, 3 tabs daily for 3 days, 2 tabs daily for 3 days, 1 tab daily for 3 days. Verapamil 120 mg twice daily has been added to your regimen Health Concerns: Cardiology will call you with an outpatient appointment for stress test. Plan of Treatment: Follow-up with your PCP next available and Cardiology as per your appointment. Assessment: See discharge summary
--- NOTE | 2023-12-28 12:48 | MHC.CM.PN ---
Pt has been medically cleared for DC, [place] [facility] [place], and resume home care services from [facility].
--- NOTE | 2023-12-28 12:49 | W.MHC.F2F ---
Service Date Service Date: 12/28/23 Encounter Date of encounter: 12/28/23 Encounter: Acute hospitalization Reasons for Services Signs and symptoms assessed: Assess respiratory status including saturation related to recent COPD exacerbation Reason for snf: medication management, medication treatment, teach disease management and other (Monitor oxygen saturation) Reason for physical therapy: home safety and mobility and assess need for DME Homebound: Leaving the home is medically contraindicated at this time without the asist of a device and/or another person due th the listed conditions above and below. Reason homebound: unsteady gait / fall risk and shortness of breath with minimal effort Certification: Based on the above findings, I certify that this patient is confined to the home and needs intermittent snf care, physical therapy and/or speech therapy, or continues to need occupational therapy. The patient is under my care, and I have initiated the establishment of the plan of care. The patient will be followed by a physician who will periodically review the plan of care. Time Spent With Patient Time: Total time managing care of this patient today ____ minutes.
[2023-12-28] MEDS: LORazepam 0.5 MG TABLET PO (14:05)
[2023-12-28] MEDS: guaiFEN/Codeine SF 200/20/10ML 10 ML LIQUID PO (14:08)
== END 2023-12-28 14:57 | disposition home health service (06) | DRG 140 ==
LOC: HO.ED 12-24 00:17 → HO.EDOVER 12-24 01:44 → HO.IMC 12-24 13:42
PROVIDERS: Admitting Provider Internal Medicine; Emergency Provider Emergency Medicine; PCP Registered Nurse; Visit Provider Hospitalist
DX: J44.1 Chronic obstructive pulmonary disease with (acute) exacerbation (principal); J96.21 Acute and chronic respiratory failure with hypoxia; I21.A1 Myocardial infarction type 2; Z99.81 Dependence on supplemental oxygen; E66.09 Other obesity due to excess calories; F41.9 Anxiety disorder, unspecified; I25.10 Atherosclerotic heart disease of native coronary artery without angina pectoris; Z68.36 Body mass index [BMI] 36.0-36.9, adult; E78.2 Mixed hyperlipidemia; Z20.822 Contact with and (suspected) exposure to COVID-19; Z91.041 Radiographic dye allergy status; Z91.040 Latex allergy status; Z79.82 Long term (current) use of aspirin; Z79.899 Other long term (current) drug therapy
CPT/HCPCS: 36415; 71045; 80048; 80053; 80076; 82803; 82947; 83605; 83735; 83880; 84484; 85025; 85610; 87040; 87502; 87635; 93005; 93306; 94640; 97162; 99285; J0456; J0737; J1650; J1940; J1956; J2060; J2919; J3475; Q9957

== ENCOUNTER → 2023-12-23 22:33 | Outpatient (BNV) | payer BC, SELFPAY | PROVIDERS: Admitting Provider Internal Medicine; Emergency Provider Emergency Medicine; PCP Registered Nurse; Visit Provider Internal Medicine Cardiovascular Disease | DX: R94.31 Abnormal electrocardiogram [ECG] [EKG] (principal) | CPT/HCPCS: 93010 ==

== ENCOUNTER 2023-12-24 01:33 | Outpatient (BNV) | payer BC, SELFPAY | END 2023-12-27 07:00 | PROVIDERS: Admitting Provider Internal Medicine; Emergency Provider Emergency Medicine; PCP Registered Nurse; Visit Provider Internal Medicine Cardiovascular Disease | DX: I35.0 Nonrheumatic aortic (valve) stenosis (principal) | CPT/HCPCS: 93308; 93321; 93325 ==

== ENCOUNTER → 2023-12-24 01:33 | Outpatient (BNV) | payer BC, SELFPAY | PROVIDERS: Admitting Provider Internal Medicine; Emergency Provider Emergency Medicine; PCP Registered Nurse; Visit Provider Internal Medicine Cardiovascular Disease | DX: R79.89 Other specified abnormal findings of blood chemistry (principal); J96.21 Acute and chronic respiratory failure with hypoxia | CPT/HCPCS: 99223; 99232; 99233 ==

== ENCOUNTER → 2023-12-24 01:33 | Outpatient (BNV) | payer BC, SELFPAY | PROVIDERS: Admitting Provider Internal Medicine; Emergency Provider Emergency Medicine; PCP Registered Nurse; Visit Provider Internal Medicine | DX: R79.89 Other specified abnormal findings of blood chemistry (principal); J96.21 Acute and chronic respiratory failure with hypoxia | CPT/HCPCS: 99223; 99232; 99239; G0180 ==

== ENCOUNTER → 2024-01-05 08:11 | Outpatient (REF) | payer BC, SELFPAY | LOC: HO.CARD 08:11 | PROVIDERS: PCP Registered Nurse; Visit Provider Internal Medicine Cardiovascular Disease | DX: Z13.89 Encounter for screening for other disorder (principal) | CPT/HCPCS: J0280; J2785 ==

== ENCOUNTER 2024-01-10 10:44 | Emergency (ER) | payer BC, SELFPAY ==
[2024-01-10] VITALS (9 sets, daily range): BP systolic 155–178; BP diastolic 56–72; PULSE 72–82; RESP 18–27; TEMP 36.6–37; O2SAT 90–96; BMI 36.4
--- NOTE | 2024-01-10 | ECG_ITS ---
Test Reason : SOB Blood Pressure : / mmHG Vent. Rate : 077 BPM Atrial Rate : 077 BPM P-R Int : 142 ms QRS Dur : 072 ms QT Int : 372 ms P-R-T Axes : 067 051 080 degrees QTc Int : 420 ms Normal sinus rhythm ST elevation consider inferior injury or acute infarct ACUTE GA / STEMI Abnormal ECG When compared with ECG of 23-DEC-2023 22:41, ST elevation now present in Inferior leads T wave amplitude has decreased in Lateral leads Referred By: Generic ED Physician Electronically Signed By:
--- NOTE | ~2024-01-10 | XR_ITS ---
EXAMINATION: XR CHEST CLINICAL INFORMATION: Cough COMPARISON: Chest 12/23/2023 TECHNIQUE: AP upright portable view of the chest was obtained. 11:54 AM FINDINGS: No significant abnormality is noted involving the heart, lungs, mediastinum, bony thorax or soft tissues. No evidence of CHF or pneumonia. XR/XR chest 1V IMPRESSION: No acute cardiopulmonary disease.
--- NOTE | 2024-01-10 11:23 | ECG_ITS ---
Test Reason : SOB Blood Pressure : / mmHG Vent. Rate : 077 BPM Atrial Rate : 077 BPM P-R Int : 128 ms QRS Dur : 088 ms QT Int : 406 ms P-R-T Axes : 062 064 043 degrees QTc Int : 459 ms Normal sinus rhythm Normal ECG When compared with ECG of 10-JAN-2024 11:14, No significant changes seen Referred By: Thong Mathur Electronically Signed By:Eladio Nelson
--- NOTE | 2024-01-10 11:25 | ED.SOB ---
HPI - SOB/Dyspnea General Chief Complaint: Dyspnea Stated Complaint: SOB 97% 2LPM,EDEMA PER EMS Time Seen by Provider: 01/10/24 11:17 Source: patient Limitations: no limitations History of Present Illness HPI Narrative: This is a 59 years old patient with history of COPD, obesity, smoker presented to the emergency department complaining of shortness of breath on exertion for the last few days and lower extremity edema. Denies fever vomiting diarrhea MD elicited complaint: shortness of breath Pertinent past history: COPD Onset (ago): day(s) (3) Timing: constant Severity: moderate Exacerbating factors: exertion Relieving factors: nothing Known history of: COPD Associated symptoms: denies other symptoms Related Data Home Medications ?Medication ?Instructions ?Recorded ?Confirmed atorvastatin 80 mg tablet 80 mg PO BEDTIME 03/04/23 12/24/23 yyaoqyyxwh-oxearcqlzvhes-jnrrvfuk 1 tab PO DAILY PRN Headache 03/04/23 12/24/23 50 mg-325 mg-40 mg tablet duloxetine 60 mg capsule,delayed 60 mg PO BID 03/04/23 12/24/23 release gabapentin 300 mg capsule 1,200 mg PO TID 03/04/23 12/24/23 hydrocodone 5 mg-acetaminophen 325 1 tab PO DAILY PRN Pain 03/04/23 12/24/23 mg tablet hyoscyamine sulfate 0.125 mg tablet 0.125 - 0.25 mg PO Q4-6H PRN 03/04/23 12/24/23 Abdominal Discomfort lorazepam 1 mg tablet 0.5 - 1 mg PO DAILY PRN Anxiety 03/04/23 12/24/23 oxcarbazepine 600 mg tablet 600 mg PO BID 03/04/23 12/24/23 Oxygen Home Use 04/16/23 12/23/23 prazosin 2 mg capsule 2 mg PO BEDTIME 04/16/23 12/24/23 albuterol sulfate 90 mcg/actuation 2 inh inhalation Q4H PRN shortness 11/15/23 12/24/23 aerosol inhaler of breath or wheezing calcium carbonate 600 mg-vitamin 1 tab PO DAILY 11/15/23 12/24/23 D3 5 mcg (200 unit) tablet baclofen 15 mg tablet 15 mg PO TID 01/10/24 01/10/24 Previous Rx's ?Medication ?Instructions ?Recorded amlodipine 5 mg tablet 5 mg PO DAILY #90 tabs 12/16/23 aspirin 81 mg tablet,delayed 81 mg PO DAILY #90 tabs 12/16/23 release codeine 8 mg-guaifenesin 200 mg/5 5 ml PO Q6H PRN cough #473 mL 12/16/23 mL oral liquid ipratropium 0.5 mg-albuterol 3 mg 3 ml inhalation RQ4H WHILE AWAKE 12/16/23 (2.5 mg base)/3 mL nebulization PRN sob 90 days #180 mL soln nebulizer and compressor #1 ea 12/16/23 prednisone 10 mg tablet See Rx Instructions .Route 12/28/23 .COMPLEX #45 tabs verapamil 120 mg tablet 120 mg PO BID #60 tabs 12/28/23 furosemide 20 mg tablet (Lasix) 20 mg PO DAILY #7 tabs 01/10/24 Allergies Allergy/AdvReac Type Severity Reaction Status Date / Time Iodinated Contrast Media Allergy Intermediate HIVES Verified 01/10/24 11:05 [IV CONTRAST] acetaminophen [From VICODIN] Allergy Unknown VOMITING Verified 12/23/23 22:38 hydrocodone [From VICODIN] Allergy Unknown VOMITING Verified 12/23/23 22:38 latex [LATEX] Allergy Unknown RASH Verified 12/23/23 22:38 oxycodone [From PERCOCET] Allergy Unknown VOMITING Verified 12/23/23 22:38 procaine [From Novocain] Allergy Unknown HIVES Verified 12/23/23 22:38 morphine [MORPHINE] AdvReac Unknown VOMITING Verified 12/23/23 22:38 Review of Systems ENT: Reports system reviewed and no additional complaints, except as documented Cardiovascular: Cardiovascular: Reports dyspnea Respiratory: Respiratory: Reports dyspnea Neurologic: Reports system reviewed and no additional complaints, except as documented [facility] Past Medical History Attestation statement: The following information was validated with the patient. Medical History Hypertension Elevated troponin COPD (chronic obstructive pulmonary disease) Chronic hypercapnic respiratory failure Trigeminal neuralgia Pulmonary nodules Mixed hyperlipidemia Peripheral neuropathy Tobacco use disorder Mood disorder Surgical History History of esophagogastroduodenoscopy (EGD) History of colonoscopy History of lumbar discectomy History of tubal ligation History of excision of mass History of shoulder surgery Social History Social History Household Members: Spouse Housing: House Do you presently have visiting nurse or other home services: No Alcohol intake: current Alcohol intake frequency: holidays/special occasions only Alcohol type: wine Comment: pt refuse bed alarm Patient Tobacco Use Status: Tobacco use Unknown Tobacco use type: Cigarette Cigarette Packs Per Day: 1 Cigarettes Per Day: 20.0 Smoked in Last 30 Days: Yes e-Cigarette/Vaping Use: Never Used Second Hand Smoke Exposure: No Substance Use Type: Marijuana Advance Directives: Yes Advance Directives on File: Yes Advance Directives Date on File: 03/09/23 service: No Physical Exam Vital Signs: Vital Signs: Last Vital Signs Temp 97.8 F 01/10/24 14:50 Pulse 80 01/10/24 14:50 Resp 20 01/10/24 14:50 BP 167/66 H 01/10/24 14:51 Pulse Ox 91 L 01/10/24 14:50 O2 Del Method Room Air 01/10/24 14:50 BMI result Body Mass Index 36.4 Const: General: cooperative, well developed, alert and awake Nutritional Appearance: well nourished Orientation/consciousness: patient oriented x3 HEENT: Head: Yes normal to inspection General nose exam: Normal external nose present Mouth: Normal oral and palatal mucosa present Neck: Neck: Yes normal visual inspection Resp: Effort & Inspection: Actively coughing Auscultation: rhonchi and wheezes Cardio: Jugular venous distension: no JVD Rate: regular rate Rhythm: regular rhythm GI: Inspection: Yes normal to inspection Palpation (GI): Soft to palpation, not firm, nontender and no guarding Skin: General skin exam: no rashes or lesions noted, elasticity normal and turgor normal Rashes: no rashes Neuro: General: patient oriented x3 Extrem: Other: bilateral leg edema Course Reevaluation(s) Reevaluation #1: doing better CXR negative ,lungs clear now,VBG OK I think she can be d/c home will give lasix po for peripheral edema she is comfortable with the plan of care Time: 14:48 Medications Administered Discontinued Medications Generic Name Dose Route Start Last Admin Trade Name Freq PRN Reason Stop Dose Admin Baclofen 15 mg 01/10/24 13:20 01/10/24 13:34 Baclofen 10 Mg Tablet PO 01/10/24 13:21 15 mg ONCE ONE Administration Albuterol Sulfate 5 mg/ 0 mg 01/10/24 11:42 01/10/24 11:50 Albuterol/Ipratropium 3 ml INHALE 01/10/24 11:43 1 each ONCE ONE Administration Furosemide 20 mg 01/10/24 14:43 01/10/24 14:51 Furosemide 20 Mg Tablet PO 01/10/24 14:44 20 mg ONCE ONE Administration Protocol Gabapentin 1,200 mg 01/10/24 13:20 01/10/24 13:34 Gabapentin 600 Mg Tablet PO 01/10/24 13:21 1,200 mg ONCE ONE Administration Methylprednisolone Sodium Succinate 125 mg 01/10/24 11:25 01/10/24 11:52 Methylprednisolone Sod Succ 125 Mg/2 Ml Vial IVPUSH 01/10/24 11:26 125 mg ONCE ONE Administration Medical Decision Making Medical Decision Making [facility] Narrative: Patient was having shortness of breath will obtain EKG chest x-ray labs Differential Diagnosis Differential Diagnoses: The differential diagnosis associated with the presentation includes COPD/CHF/bronchitis/pneumothorax Admission/Observation Consideration of admission/observation: Escalation of care including admission/observation considered Lab Data [facility] Lab Attestation statement: I reviewed the patient's lab results. 01/10/24 12:14 01/10/24 12:14 Labs: Lab Results 01/10/24 Range/Units 12:14 WBC 12.3 H (4.8-10.8) X10*3/uL RBC 4.03 L (4.20-5.50) X10*6/uL Hgb 13.1 (12.0-16.0) g/dl Hct 39.3 (37.0-47.0) % MCV 97.5 (80.0-98.0) fL MCH 32.5 (27.0-33.0) pg MCHC 33.3 (31.0-35.0) g/dl RDW 16.2 H (11.0-16.0) % Plt Count 351 (160-400) X10*3/uL MPV 8.7 L (9.4-12.3) fL Immature Gran % (Auto) 0.6 H (0.0-0.4) % Neut % (Auto) 78.8 H (45-73) % Lymph % (Auto) 14.5 L (20-40) % [place] % (Auto) 5.0 (2-11) % Eos % (Auto) 0.7 (0-4) % Baso % (Auto) 0.4 (0-2) % Lymph # (Auto) 1.8 (1.2-4.9) X10*3/uL [place] # (Auto) 0.6 (0.1-1.2) X10*3/uL Eos # (Auto) 0.1 (0.0-0.4) X10*3/uL Baso # (Auto) 0.1 (0.0-0.2) X10*3/uL Abs Immat Gran (auto) 0.08 H (0.00-0.03) X10*3/uL Absolute Neuts (auto) 9.7 H (2.0-8.3) x10*3/uL Absolute Nucleated RBC 0.000 (0.0-0.012) X10*3/uL Nucleated RBC % (auto) 0.0 (0.0-0.2) /100WBC VBG pH 7.46 H (7.32-7.43) VBG pCO2 40 mmHg VBG pO2 81 mmHg VBG HCO3 28 H (22-26) mmol/L VBG O2 Saturation 99.0 % VBG Base Excess 4.6 mmol/L Sodium 145 (135-145) mmol/L Potassium 3.8 (3.3-5.1) mmol/L Chloride 108 (96-108) mmol/L Carbon Dioxide 28 (22-29) mmol/L Anion Gap 13 (12-20) BUN 9 (9-16) mg/dL Creatinine 0.69 (0.5-1.4) mg/dL Estim Creat Clear Calc 86.0 Estimated GFR > 60 Random Glucose 123 H (60-115) mg/dL Calcium 9.5 (8.4-10.2) mg/dL Total Bilirubin 0.4 (0.0-1.0) mg/dL AST 15 (5-31) U/L ALT 22 (0-31) U/L Alkaline Phosphatase 57 (39-117) U/L Troponin I High Sens 7.4 D (<3.5-17.0) ng/L B-Natriuretic Peptide 89 (<100) pg/mL Total Protein 6.5 (6.5-8.0) g/dL Albumin 4.2 (3.5-5.0) g/dL Independent Interpretation I performed an independent interpretation of an: EKG Interpretation: Normal sinus rhythm rate [address]-T changes EKG was reviewed interpreted by me as a normal Radiology Impression Discussion of test interpretation with radiology: I discussed test interpretation with the radiologist and I have reviewed the radiologist's reading. External Record Review External record reviewed: Inpatient record Chronic Conditions Patient?s care impacted by: Other (copd) Discharge Plan Discharge Clinical Impression: Leg edema COPD (chronic obstructive pulmonary disease) Qualifiers: COPD type: chronic bronchitis Chronic bronchitis type: simple Qualified Code(s): J41.0 - Simple chronic bronchitis Patient Disposition: Home, Self-Care Instructions: COPD (Chronic Obstructive Pulmonary Disease) (DC), Leg Edema (ED) Additional Instructions: Follow-up with your primary care physician, use oxygen as needed, take furosemide as prescribed, return to emergency room if you worse, we [facility] Prescriptions: New furosemide [Lasix] 20 mg tablet 20 mg PO DAILY Qty: 7 0RF No Action baclofen 15 mg Tablet 15 mg PO TID atorvastatin 80 mg tablet 80 mg PO BEDTIME hydrocodone-acetaminophen 5-325 mg tablet 1 tab PO DAILY PRN (Reason: Pain) erilhueyqo-svalseegebfqk-ebkw 50-325-40 mg tablet 1 tab PO DAILY PRN (Reason: Headache) hyoscyamine sulfate 0.125 mg tablet 0.125 - 0.25 mg PO Q4-6H PRN (Reason: Abdominal Discomfort) gabapentin 300 mg capsule 1,200 mg PO TID oxcarbazepine 600 mg tablet 600 mg PO BID lorazepam 1 mg tablet 0.5 - 1 mg PO DAILY PRN (Reason: Anxiety) duloxetine 60 mg capsule,delayed release(DR/EC) 60 mg PO BID calcium carbonate-vitamin D3 600 mg-5 mcg (200 unit) Tablet 1 tab PO DAILY albuterol sulfate 90 mcg/actuation HFA aerosol inhaler 2 inh inhalation Q4H PRN (Reason: shortness of breath or wheezing) ipratropium-albuterol 0.5 mg-3 mg(2.5 mg base)/3 mL Solution For Nebulization 3 ml inhalation RQ4H WHILE AWAKE PRN (Reason: sob) 90 Days Qty: 180 0RF amlodipine 5 mg Tablet 5 mg PO DAILY Qty: 90 0RF Protocol: Hold for SBP< HOLD for SBP < : 90 aspirin 81 mg Tablet,Delayed Release (Dr/Ec) 81 mg PO DAILY Qty: 90 0RF (DME) nebulizer and compressor Device See Rx Instructions .Route Qty: 1 0RF Rx Instructions: As directed codeine-guaifenesin 8-200 mg/5 mL liquid 5 ml PO Q6H PRN (Reason: cough) Qty: 473 0RF prednisone 10 mg tablet See Rx Instructions .Route .COMPLEX Qty: 45 0RF Rx Instructions: 10 mg orally; 5 tabs p.o. daily x3 days; 4 tabs p.o. daily x3 days; 3 tabs daily x3 days; 2 tabs daily x3 days; 1 tab daily x3 days verapamil 120 mg tablet 120 mg PO BID Qty: 60 1RF prazosin 2 mg capsule 2 mg PO BEDTIME (DME) Oxygen Home Use Kit See Rx Instructions .ROUTE Rx Instructions: As directed Referrals: Sirisha Huertas FNP-BC [Primary Care Provider] - 2 days Print Language: Panamanian
--- NOTE | 2024-01-10 11:46 | PC.NURSE ---
Pt presents to ED via EMS from home, reports for last few days increase in SOB/WOB on exertion and edema in lower legs. Pt has hx of COPD, denies any CHF hx. Reports she has O2 PRN at home for COPD, reports these last few days feel different. Reports pitting edema in lower extremities and increase in urination, SOB causing difficulties in ADLs. Alert and oriented, breathing unlabored while at rest. Skin warm and dry. +2 pitting edema noted to lower extremities. Reports mild chest pain, 2/10 that just started when she got to ED.
[2024-01-10] MEDS: Albuterol Sulfate 5 MG, Albuterol/Iprat 2.5/0.5MG 3 ML 3 ML INHALE (11:50)
[2024-01-10] MEDS: methylPREDNISolone Sod Succ 125 MG/2 ML VIAL IVPUSH (11:52)
[2024-01-10 12:18] LABS: MANUAL DIFF FLAG NO
[2024-01-10 12:20] LABS: Basophils Absolute Auto 0.1 X10*3/uL (0.0-0.2); Basophils Percent Auto 0.4 % (0-2); Eosinophils Absolute Auto 0.1 X10*3/uL (0.0-0.4); Eosinophils Percent Auto 0.7 % (0-4); Hematocrit 39.3 % (37.0-47.0); Hemoglobin 13.1 g/dl (12.0-16.0); Imm Gran Abs Auto 0.08 X10*3/uL (0.00-0.03); Imm Gran Pct Auto 0.6 % (0.0-0.4); Lymphocytes Absolute Auto 1.8 X10*3/uL (1.2-4.9); Lymphocytes Percent Auto 14.5 % (20-40); Mean Corpuscular HGB Conc 33.3 g/dl (31.0-35.0); Mean Corpuscular Hemoglobin 32.5 pg (27.0-33.0); Mean Corpuscular Volume 97.5 fL (80.0-98.0); Mean Platelet Volume 8.7 fL (9.4-12.3); Monocytes Absolute Auto 0.6 X10*3/uL (0.1-1.2); Neutrophils Absolute Auto 9.7 x10*3/uL (2.0-8.3); Neutrophils Percent Auto 78.8 % (45-73); Platelet Count 351 X10*3/uL (160-400); Red Blood Count 4.03 X10*6/uL (4.20-5.50); Red Cell Distribution Width 16.2 % (11.0-16.0); White Blood Count 12.3 X10*3/uL (4.8-10.8)
[2024-01-10 12:22] LABS: Venous Blood Gas Refer to POC result
[2024-01-10 12:24] LABS: VBG Base Excess 4.6 mmol/L; VBG HCO3 28 mmol/L (22-26); VBG pCO2 40 mmHg; VBG pH 7.46 (7.32-7.43); VBG pO2 81 mmHg
[2024-01-10 12:35] LABS: Alanine Aminotransferase 22 U/L (0-31); Albumin Level 4.2 g/dL (3.5-5.0); Alkaline Phosphatase 57 U/L (39-117); Anion Gap 13 (12-20); Aspartate Amino Transferase 15 U/L (5-31); Bilirubin Total 0.4 mg/dL (0.0-1.0); Blood Urea Nitrogen 9 mg/dL (9-16); Calcium 9.5 mg/dL (8.4-10.2); Carbon Dioxide 28 mmol/L (22-29); Chloride 108 mmol/L (96-108); Estimated Glomerular Filt Rate > 60; Glucose Random 123 mg/dL (60-115); Potassium 3.8 mmol/L (3.3-5.1); Sodium 145 mmol/L (135-145); Total Protein 6.5 g/dL (6.5-8.0)
[2024-01-10 12:41] LABS: B Type Natriuretic Peptide 89 pg/mL (<100)
[2024-01-10 12:43] LABS: Troponin-I High Sensitivity 7.4 ng/L (<3.5-17.0)
[2024-01-10] MEDS: Gabapentin 600 MG TABLET 1200 MG PO (13:34)
[2024-01-10] MEDS: Baclofen 10 MG TABLET 15 MG PO (13:34)
--- NOTE | 2024-01-10 14:13 | MHC.CM.ED ---
Received notification from [facility] that patient is active with their agency. Return referral made in [facility] so they can follow. Continue to monitor for d/c needs.
[2024-01-10] MEDS: Furosemide 20 MG TABLET PO (14:51)
== END 2024-01-10 17:04 | disposition home or self-care (01) ==
PROVIDERS: Emergency Provider Emergency Medicine; PCP Registered Nurse
DX: J41.0 Simple chronic bronchitis (principal); R60.0 Localized edema; R06.02 Shortness of breath; R94.31 Abnormal electrocardiogram [ECG] [EKG]; Z79.899 Other long term (current) drug therapy
CPT/HCPCS: 36415; 71045; 80053; 82803; 83880; 84484; 85025; 93005; 94640; 99284; 99285; J2919

== ENCOUNTER → 2024-01-10 11:23 | Outpatient (BNV) | payer BC, SELFPAY | PROVIDERS: Emergency Provider Emergency Medicine; PCP Registered Nurse; Visit Provider Internal Medicine Cardiovascular Disease | DX: R06.02 Shortness of breath (principal) | CPT/HCPCS: 93010 ==

== ENCOUNTER 2024-01-16 18:15 | Inpatient (IN) | payer BC, MEDICARE, SELFPAY ==
--- NOTE | 2024-01-16 | ECG_ITS ---
Test Reason : DYSPNEA Blood Pressure : / mmHG Vent. Rate : 082 BPM Atrial Rate : 082 BPM P-R Int : 128 ms QRS Dur : 082 ms QT Int : 380 ms P-R-T Axes : 061 069 039 degrees QTc Int : 443 ms Normal sinus rhythm Nonspecific T wave abnormality Abnormal ECG When compared with ECG of 10-JAN-2024 11:20, Nonspecific T wave abnormality, worse in Inferior leads Referred By: Generic ED Physician Electronically Signed By:HARRIET ANDRES MD
--- NOTE | ~2024-01-16 | XR_ITS ---
EXAMINATION: XR CHEST CLINICAL INFORMATION: Shortness of breath. COMPARISON: Chest radiograph dated 01/10/2024. TECHNIQUE: Frontal view of the chest was obtained. FINDINGS: The cardiac silhouette is normal in size. The lungs are clear. The pleural spaces are clear. There is no pneumothorax. No acute osseous abnormality. XR/XR chest 1V IMPRESSION: No acute cardiopulmonary disease.
[2024-01-16 18:23] VITALS: BP 175/89; PULSE 81; O2SAT 95; BMI 37.5
[2024-01-16 18:31] VITALS: BP 139/69; PULSE 86; RESP 16; TEMP 36.9; O2SAT 94
[2024-01-16 19:10] LABS: MANUAL DIFF FLAG NO
[2024-01-16 19:11] LABS: Basophils Percent Auto 0.3 % (0-2); Eosinophils Absolute Auto 0.3 X10*3/uL (0.0-0.4); Eosinophils Percent Auto 2.5 % (0-4); Hematocrit 38.4 % (37.0-47.0); Hemoglobin 12.8 g/dl (12.0-16.0); Imm Gran Abs Auto 0.05 X10*3/uL (0.00-0.03); Imm Gran Pct Auto 0.5 % (0.0-0.4); Lymphocytes Absolute Auto 1.8 X10*3/uL (1.2-4.9); Lymphocytes Percent Auto 17.2 % (20-40); Mean Corpuscular HGB Conc 33.3 g/dl (31.0-35.0); Mean Corpuscular Hemoglobin 32.9 pg (27.0-33.0); Mean Corpuscular Volume 98.7 fL (80.0-98.0); NRBC Pct Auto 0.2 /100WBC (0.0-0.2); Neutrophils Absolute Auto 7.6 x10*3/uL (2.0-8.3); Neutrophils Percent Auto 70.5 % (45-73); Platelet Count 364 X10*3/uL (160-400); Red Blood Count 3.89 X10*6/uL (4.20-5.50); Red Cell Distribution Width 16.7 % (11.0-16.0); White Blood Count 10.7 X10*3/uL (4.8-10.8)
[2024-01-16 19:23] LABS: Lactic Acid 1.2 mmol/L (0.5-2.0)
[2024-01-16 19:26] LABS: Alanine Aminotransferase 17 U/L (0-31); Albumin Level 3.9 g/dL (3.5-5.0); Alkaline Phosphatase 65 U/L (39-117); Anion Gap 13 (12-20); Aspartate Amino Transferase 14 U/L (5-31); Bilirubin Total 0.4 mg/dL (0.0-1.0); Blood Urea Nitrogen 19 mg/dL (9-16); Calcium 9.6 mg/dL (8.4-10.2); Carbon Dioxide 33 mmol/L (22-29); Chloride 103 mmol/L (96-108); Creatinine Clr Calc Pharmacy 75.2; Estimated Glomerular Filt Rate > 60; Glucose Random 123 mg/dL (60-115); Potassium 3.3 mmol/L (3.3-5.1); Sodium 146 mmol/L (135-145); Total Protein 6.2 g/dL (6.5-8.0)
[2024-01-16 19:32] LABS: B Type Natriuretic Peptide 98 pg/mL (<100); INTERNATIONAL NORM RATIO 0.9 (0.9-1.1); Prothrombin Time 10.7 SEC (11.1-13.3)
[2024-01-16 19:33] LABS: Troponin-I High Sensitivity 16.3 ng/L (<3.5-17.0)
[2024-01-16 19:34] LABS: Partial Thromboplastin Time 28.1 SEC (26.0-36.8)
[2024-01-16 19:49] LABS: Influenza A PCR NEGATIVE (Negative); Influenza B PCR NEGATIVE (Negative); Resp Syncy Virus RNA Qual PCR NEGATIVE (Negative); SARS COV2 PCR INHOUSE NEGATIVE (Negative)
[2024-01-16 20:21] VITALS: BP 140/68; PULSE 75; RESP 16; TEMP 36.8; O2SAT 95
--- NOTE | 2024-01-16 20:39 | ED_ITS ---
HPI - SOB/Dyspnea General Chief Complaint: Dyspnea Stated Complaint: sob copd Time Seen by Provider: 01/16/24 18:49 History of Present Illness HPI Narrative: Patient is a 59-year-old female with a history of COPD baseline is on 1 L of oxygen at home presented today with having increasing coughing increasing shortness of breath needing more oxygen than usual came in for further evaluation. Patient already received a dose of steroids prior to arrival on the ambulance. Also given a neb treatment. Symptoms feel somewhat improved upon arrival. No history of congestive heart failure. Patient is from home. Related Data Home Medications ?Medication ?Instructions ?Recorded ?Confirmed atorvastatin 80 mg tablet 80 mg PO BEDTIME 03/04/23 12/24/23 duyysxgkcz-ukmkipfnwnbkd-wapabwzb 1 tab PO DAILY PRN Headache 03/04/23 12/24/23 50 mg-325 mg-40 mg tablet duloxetine 60 mg capsule,delayed 60 mg PO BID 03/04/23 12/24/23 release gabapentin 300 mg capsule 1,200 mg PO TID 03/04/23 12/24/23 hydrocodone 5 mg-acetaminophen 325 1 tab PO DAILY PRN Pain 03/04/23 12/24/23 mg tablet hyoscyamine sulfate 0.125 mg tablet 0.125 - 0.25 mg PO Q4-6H PRN 03/04/23 12/24/23 Abdominal Discomfort lorazepam 1 mg tablet 0.5 - 1 mg PO DAILY PRN Anxiety 03/04/23 12/24/23 oxcarbazepine 600 mg tablet 600 mg PO BID 03/04/23 12/24/23 Oxygen Home Use 04/16/23 12/23/23 prazosin 2 mg capsule 2 mg PO BEDTIME 04/16/23 12/24/23 albuterol sulfate 90 mcg/actuation 2 inh inhalation Q4H PRN shortness 11/15/23 12/24/23 aerosol inhaler of breath or wheezing calcium carbonate 600 mg-vitamin 1 tab PO DAILY 11/15/23 12/24/23 D3 5 mcg (200 unit) tablet baclofen 15 mg tablet 15 mg PO TID 01/10/24 01/10/24 Previous Rx's ?Medication ?Instructions ?Recorded amlodipine 5 mg tablet 5 mg PO DAILY #90 tabs 12/16/23 aspirin 81 mg tablet,delayed 81 mg PO DAILY #90 tabs 12/16/23 release codeine 8 mg-guaifenesin 200 mg/5 5 ml PO Q6H PRN cough #473 mL 12/16/23 mL oral liquid nebulizer and compressor #1 ea 12/16/23 prednisone 10 mg tablet See Rx Instructions .Route 12/28/23 .COMPLEX #45 tabs verapamil 120 mg tablet 120 mg PO BID #60 tabs 12/28/23 furosemide 20 mg tablet (Lasix) 20 mg PO DAILY #7 tabs 01/10/24 ipratropium 0.5 mg-albuterol 3 mg 3 ml inhalation RQ4H WHILE AWAKE 01/13/24 (2.5 mg base)/3 mL nebulization PRN sob 90 days #180 mL soln Allergies Allergy/AdvReac Type Severity Reaction Status Date / Time Iodinated Contrast Media Allergy Intermediate HIVES Verified 01/16/24 18:23 [IV CONTRAST] acetaminophen [From VICODIN] Allergy Unknown VOMITING Verified 01/16/24 18:23 hydrocodone [From VICODIN] Allergy Unknown VOMITING Verified 01/16/24 18:23 latex [LATEX] Allergy Unknown RASH Verified 01/16/24 18:23 oxycodone [From PERCOCET] Allergy Unknown VOMITING Verified 01/16/24 18:23 procaine [From Novocain] Allergy Unknown HIVES Verified 01/16/24 18:23 morphine [MORPHINE] AdvReac Unknown VOMITING Verified 01/16/24 18:23 Review of Systems 2 Review of Systems: Positive shortness of breath Yes all other systems are reviewed and are negative PMFSH Past Medical History Attestation statement: The following information was validated with the patient. Source: unable to obtain Medical History Hypertension Elevated troponin COPD (chronic obstructive pulmonary disease) Chronic hypercapnic respiratory failure Trigeminal neuralgia Pulmonary nodules Mixed hyperlipidemia Peripheral neuropathy Tobacco use disorder Mood disorder Surgical History History of esophagogastroduodenoscopy (EGD) History of colonoscopy History of lumbar discectomy History of tubal ligation History of excision of mass History of shoulder surgery Social History Social History Household Members: Spouse Housing: House Do you presently have visiting nurse or other home services: No Alcohol intake: current Alcohol intake frequency: holidays/special occasions only Alcohol type: wine Comment: pt refuse bed alarm Patient Tobacco Use Status: Tobacco use Unknown Tobacco use type: Cigarette Cigarette Packs Per Day: 1 Cigarettes Per Day: 20.0 Smoked in Last 30 Days: Yes e-Cigarette/Vaping Use: Never Used Second Hand Smoke Exposure: No Use of substances other than those prescribed or required for medical reasons: No Substance Use Type: Marijuana Advance Directives: Yes Advance Directives on File: Yes Advance Directives Date on File: 03/09/23 Do you have a plan to hurt others: No Plan Patient : No service: No Physical Exam 2 Vital Signs: Vital Signs: Last Vital Signs Temp 98.0 F 01/16/24 22:26 Pulse 77 01/16/24 22:26 Resp 14 01/16/24 22:26 BP 147/57 H 01/16/24 22:26 Pulse Ox 89 L 01/16/24 23:06 O2 Del Method Nasal Cannula 01/16/24 23:06 O2 Flow Rate 2 01/16/24 23:06 BMI result Body Mass Index 37.5 Appearance: Alert. Oriented X3. No acute distress. Eyes: Pupils equal, round and reactive to light. ENT: Pharynx normal. Neck: Normal inspection. Neck supple. No lymph nodes noted. No crepitus CVS: Normal heart rate and rhythm. Pulses normal. Normal S1 and S2 Respiratory: Positive expiratory wheezing noted bilaterally Abdomen: Soft and nontender. No rigidity. No distention. good BS x4 Skin: Skin warm and dry. Normal skin color. Normal skin turgor. Extremities: No lower extremity edema. Neurovascular intact to all extremities. No Lacerations. No Rash Neuro: Oriented X 3. No motor deficit. No sensory deficit. Moving all extermities. No slurred speech Medications Administered Discontinued Medications Generic Name Dose Route Start Last Admin Trade Name Freq PRN Reason Stop Dose Admin Albuterol Sulfate 2.5 mg 01/16/24 20:38 01/16/24 20:47 Albuterol Sulfate (0.083%) 2.5 Mg/3 Ml Vial.Neb INHALE 01/16/24 20:39 2.5 mg ONCE ONE Administration Albuterol/Ipratropium 3 ml 01/16/24 20:38 01/16/24 20:47 Albuterol/Iprat 2.5/0.5mg 3 Ml Ampul.Neb INHALE 01/16/24 20:39 3 ml ONCE ONE Administration Medical Decision Making Medical Decision Making [facility] Narrative: Patient is 59 years old history of COPD presented today with having wheezing shortness of breath baseline on 2 L of oxygen given steroid given neb treatments monitored in the emergency department ambulated patient's O2 sat dropped to about 88%. She did not want to go home on a stay in the hospital overnight. Case discussed with the hospitalist team. Will admit patient for further evaluation and monitoring overnight. Patient's lab showed a troponin is 16.3. Patient's white count was normal. Hemoglobin was 12.8 no signs of gross anemia. Patient's ABG by my interpretation showed a slight metabolic alkalosis. Patient is lactate is 1.2 there is no evidence for sepsis BNP of 98 no evidence for CHF fluSV were all negative Differential Diagnosis Differential Diagnoses: The differential diagnosis associated with the presentation includes Pneumonia, pneumothorax, flu, COVID, RSV, COPD, congestive heart failure Admission/Observation Consideration of admission/observation: Escalation of care including admission/observation considered Lab Data [facility] Lab Attestation statement: I reviewed the patient's lab results. 01/16/24 18:51 01/16/24 18:51 Labs: Lab Results 01/16/24 01/17/24 Range/Units 18:51 00:14 WBC 10.7 (4.8-10.8) X10*3/uL RBC 3.89 L (4.20-5.50) X10*6/uL Hgb 12.8 (12.0-16.0) g/dl Hct 38.4 (37.0-47.0) % MCV 98.7 H (80.0-98.0) fL MCH 32.9 (27.0-33.0) pg MCHC 33.3 (31.0-35.0) g/dl RDW 16.7 H (11.0-16.0) % Plt Count 364 (160-400) X10*3/uL MPV 9.0 L (9.4-12.3) fL Immature Gran % (Auto) 0.5 H (0.0-0.4) % Neut % (Auto) 70.5 (45-73) % Lymph % (Auto) 17.2 L (20-40) % [place]ard % (Auto) 9.0 (2-11) % Eos % (Auto) 2.5 (0-4) % Baso % (Auto) 0.3 (0-2) % Lymph # (Auto) 1.8 (1.2-4.9) X10*3/uL [place]ard # (Auto) 1.0 (0.1-1.2) X10*3/uL Eos # (Auto) 0.3 (0.0-0.4) X10*3/uL Baso # (Auto) 0.0 (0.0-0.2) X10*3/uL Abs Immat Gran (auto) 0.05 H (0.00-0.03) X10*3/uL Absolute Neuts (auto) 7.6 (2.0-8.3) x10*3/uL Absolute Nucleated RBC 0.020 H (0.0-0.012) X10*3/uL Nucleated RBC % (auto) 0.2 (0.0-0.2) /100WBC PT 10.7 L (11.1-13.3) SEC INR 0.9 (0.9-1.1) APTT 28.1 (26.0-36.8) SEC O2 Saturation 95.0 % ABG pH at Pt Temp 7.49 H (7.35-7.45) ABG pCO2 at Pt Temp 43 (32-45) mmHg ABG pO2 at Pt Temp 73 L (83-108) mmHg ABG HCO3 33 H (22-26) mmol/L ABG Base Excess (Actual) 9.5 mmol/L Sodium 146 H (135-145) mmol/L Potassium 3.3 (3.3-5.1) mmol/L Chloride 103 (96-108) mmol/L Carbon Dioxide 33 H (22-29) mmol/L Anion Gap 13 (12-20) BUN 19 H (9-16) mg/dL Creatinine 0.77 (0.5-1.4) mg/dL Estim Creat Clear Calc 75.2 Estimated GFR > 60 Random Glucose 123 H (60-115) mg/dL Lactic Acid 1.2 (0.5-2.0) mmol/L Calcium 9.6 (8.4-10.2) mg/dL Total Bilirubin 0.4 (0.0-1.0) mg/dL AST 14 (5-31) U/L ALT 17 (0-31) U/L Alkaline Phosphatase 65 (39-117) U/L Troponin I High Sens 16.3 D (<3.5-17.0) ng/L B-Natriuretic Peptide 98 (<100) pg/mL Total Protein 6.2 L (6.5-8.0) g/dL Albumin 3.9 (3.5-5.0) g/dL Influenza Type A (PCR) NEGATIVE (Negative) Influenza Type B (PCR) NEGATIVE (Negative) RSV RNA Qual (PCR) NEGATIVE (Negative) SARS-CoV-2 RNA (RT-PCR) NEGATIVE (Negative) ABG Data Attestation ABG: I personally reviewed and interpreted this ABG as follows: Interpretation: Metabolic alkalosis Independent Interpretation I performed an independent interpretation of an: EKG (Sinus heart rate is 80 FL QRS QTC normal no acute ST segment elevation) and Plain X-Ray (Chest x-ray was grossly negative) Radiology Impression Discussion of test interpretation with radiology: I have reviewed the radiologist's reading. External Record Review External record reviewed: Inpatient record Chronic Conditions Patient?s care impacted by: Hypertension COPD Discharge Plan Discharge Clinical Impression: COPD (chronic obstructive pulmonary disease) Patient Disposition: Admitted As Inpatient Prescriptions: No Action ipratropium-albuterol 0.5 mg-3 mg(2.5 mg base)/3 mL solution for nebulization 3 ml inhalation RQ4H WHILE AWAKE PRN (Reason: sob) 90 Days Qty: 180 0RF baclofen 15 mg Tablet 15 mg PO TID furosemide [Lasix] 20 mg tablet 20 mg PO DAILY Qty: 7 0RF atorvastatin 80 mg tablet 80 mg PO BEDTIME hydrocodone-acetaminophen 5-325 mg tablet 1 tab PO DAILY PRN (Reason: Pain) dodrskawqe-qmuesmtqudlqh-izdb 50-325-40 mg tablet 1 tab PO DAILY PRN (Reason: Headache) hyoscyamine sulfate 0.125 mg tablet 0.125 - 0.25 mg PO Q4-6H PRN (Reason: Abdominal Discomfort) gabapentin 300 mg capsule 1,200 mg PO TID oxcarbazepine 600 mg tablet 600 mg PO BID lorazepam 1 mg tablet 0.5 - 1 mg PO DAILY PRN (Reason: Anxiety) duloxetine 60 mg capsule,delayed release(DR/EC) 60 mg PO BID calcium carbonate-vitamin D3 600 mg-5 mcg (200 unit) Tablet 1 tab PO DAILY albuterol sulfate 90 mcg/actuation HFA aerosol inhaler 2 inh inhalation Q4H PRN (Reason: shortness of breath or wheezing) amlodipine 5 mg Tablet 5 mg PO DAILY Qty: 90 0RF Protocol: Hold for SBP< HOLD for SBP < : 90 aspirin 81 mg Tablet,Delayed Release (Dr/Ec) 81 mg PO DAILY Qty: 90 0RF (DME) nebulizer and compressor Device See Rx Instructions .Route Qty: 1 0RF Rx Instructions: As directed codeine-guaifenesin 8-200 mg/5 mL liquid 5 ml PO Q6H PRN (Reason: cough) Qty: 473 0RF prednisone 10 mg tablet See Rx Instructions .Route .COMPLEX Qty: 45 0RF Rx Instructions: 10 mg orally; 5 tabs p.o. daily x3 days; 4 tabs p.o. daily x3 days; 3 tabs daily x3 days; 2 tabs daily x3 days; 1 tab daily x3 days verapamil 120 mg tablet 120 mg PO BID Qty: 60 1RF prazosin 2 mg capsule 2 mg PO BEDTIME (DME) Oxygen Home Use Kit See Rx Instructions .ROUTE Rx Instructions: As directed Print Language: Portuguese
[2024-01-16] MEDS: Albuterol/Iprat 2.5/0.5MG 3 ML AMPUL.NEB INHALE (20:47)
[2024-01-16] MEDS: Albuterol Sulfate (0.083%) 2.5 MG/3 ML VIAL.NEB INHALE (20:47)
[2024-01-16 20:49] VITALS: PULSE 74; RESP 20; O2SAT 94
[2024-01-16 22:26] VITALS: BP 147/57; PULSE 77; RESP 14; TEMP 36.7; O2SAT 94
[2024-01-16 23:06] VITALS: O2SAT 89
--- NOTE | 2024-01-16 23:09 | PC.NURSE ---
Addendum entered by Joanne Allison 01/16/24 23:17: Ambulation trial done by information technology instructor. Pt used walker to ambulate, unsteady gait. Pt destated to 89% on 2L via NC. Provider Sethi made aware. Original Note: This bond underwriter assumed care of this Pt at 1900. Pt A&Ox3, reports dyspnea worsening with exertion. Pt reports weakness while walking and has been needing her PRN O2 more frequently.
[2024-01-17] VITALS (14 sets, daily range): BP systolic 137–188; BP diastolic 64–86; PULSE 72–87; RESP 16–20; TEMP 36.3–36.9; O2SAT 91–97
[2024-01-17 00:20] LABS: ABG Refer to POC result
[2024-01-17 00:21] LABS: ABG Base Excess 9.5 mmol/L; ABG HCO3 33 mmol/L (22-26); ABG pCO2 43 mmHg (32-45); ABG pH 7.49 (7.35-7.45); ABG pO2 73 mmHg (83-108)
--- NOTE | 2024-01-17 00:38 | PM.IMHP ---
History of Present Illness Date of Service: 01/17/24 Chief Complaint: Dyspnea This is a 59-year-old female with pertinent history of COPD not on home oxygen, trigeminal neuralgia, hypertension, mood disorder who presents to the emergency department for evaluation of dyspnea. Patient states that her symptoms began a couple of days prior to presentation. She has been having dyspnea which is worse with exertion. Also has been having wheezing. Admits associated productive cough with whitish sputum production. No fever or chills. Patient states she was discharged without supplemental oxygen on 12/27 when she was admitted for COPD exacerbation. VNA at home told her to use 1 L supplemental oxygen during ambulation. She was found to be satting 76% on room air as per VNA on the day of presentation and was sent to the ER. She denies chest pain, palpitations, fever or chills. No nausea, vomiting, abdominal pain or changes in urinary or bowel habits. In the emergency department, patient requiring 2 L supplemental oxygen. She was given IV steroids by EMS. Review of Systems Constitutional: Constitutional: Reports fatigue Cardiovascular: Cardiovascular: Reports dyspnea on exertion Respiratory: Respiratory: Reports cough, Reports dyspnea on exertion and Reports wheezing Gastrointestinal: Gastrointestinal: Reports no additional gastrointestinal complaints Genitourinary: Genitourinary: Reports no additional female genitourinary complaints Endocrine: Endocrine: Reports fatigue Allergic/Immunologic: Allergic/Immunologic: Reports wheezing [facility] Medical History Hypertension Elevated troponin COPD (chronic obstructive pulmonary disease) Chronic hypercapnic respiratory failure Trigeminal neuralgia Pulmonary nodules Mixed hyperlipidemia Peripheral neuropathy Tobacco use disorder Mood disorder Pertinent family history: Not significant Surgical History History of esophagogastroduodenoscopy (EGD) History of colonoscopy History of lumbar discectomy History of tubal ligation History of excision of mass History of shoulder surgery Social History Household Members: Spouse Housing: House Do you presently have visiting nurse or other home services: No Alcohol intake: current Alcohol intake frequency: holidays/special occasions only Alcohol type: wine Comment: pt refuse bed alarm Patient Tobacco Use Status: Tobacco use Unknown Tobacco use type: Cigarette Cigarette Packs Per Day: 1 Cigarettes Per Day: 20.0 Smoked in Last 30 Days: Yes e-Cigarette/Vaping Use: Never Used Second Hand Smoke Exposure: No Use of substances other than those prescribed or required for medical reasons: No Substance Use Type: Marijuana Advance Directives: Yes Advance Directives on File: Yes Advance Directives Date on File: 03/09/23 Do you have a plan to hurt others: No Plan Patient : No service: No Meds Allergies Allergy/AdvReac Type Severity Reaction Status Date / Time Iodinated Contrast Media Allergy Intermediate HIVES Verified 01/16/24 18:23 [IV CONTRAST] acetaminophen [From VICODIN] Allergy Unknown VOMITING Verified 01/16/24 18:23 hydrocodone [From VICODIN] Allergy Unknown VOMITING Verified 01/16/24 18:23 latex [LATEX] Allergy Unknown RASH Verified 01/16/24 18:23 oxycodone [From PERCOCET] Allergy Unknown VOMITING Verified 01/16/24 18:23 procaine [From Novocain] Allergy Unknown HIVES Verified 01/16/24 18:23 morphine [MORPHINE] AdvReac Unknown VOMITING Verified 01/16/24 18:23 Home Medications ?Medication ?Instructions ?Recorded ?Confirmed ?Last Taken ?Type atorvastatin 80 mg tablet 80 mg PO BEDTIME 03/04/23 12/24/23 12/23/23 History mwppqusjam-geabjbgjowzta-cvrmslpa 1 tab PO DAILY PRN Headache 03/04/23 12/24/23 12/23/23 History 50 mg-325 mg-40 mg tablet duloxetine 60 mg capsule,delayed 60 mg PO BID 03/04/23 12/24/23 12/23/23 History release gabapentin 300 mg capsule 1,200 mg PO TID 03/04/23 12/24/23 12/23/23 History hydrocodone 5 mg-acetaminophen 325 1 tab PO DAILY PRN Pain 03/04/23 12/24/23 12/23/23 History mg tablet hyoscyamine sulfate 0.125 mg tablet 0.125 - 0.25 mg PO Q4-6H PRN 03/04/23 12/24/23 12/23/23 History Abdominal Discomfort lorazepam 1 mg tablet 0.5 - 1 mg PO DAILY PRN Anxiety 03/04/23 12/24/23 12/23/23 History oxcarbazepine 600 mg tablet 600 mg PO BID 03/04/23 12/24/23 12/23/23 History Oxygen Home Use 04/16/23 12/23/23 Unknown History prazosin 2 mg capsule 2 mg PO BEDTIME 04/16/23 12/24/23 12/23/23 History albuterol sulfate 90 mcg/actuation 2 inh inhalation Q4H PRN shortness 11/15/23 12/24/23 12/23/23 History aerosol inhaler of breath or wheezing calcium carbonate 600 mg-vitamin 1 tab PO DAILY 11/15/23 12/24/23 12/12/23 History D3 5 mcg (200 unit) tablet baclofen 15 mg tablet 15 mg PO TID 01/10/24 01/10/24 Unknown History Physical Exam Vital Signs and Narrative: Vital Signs: Last Vital Signs Temp 98.0 F 01/16/24 22:26 Pulse 77 01/16/24 22:26 Resp 14 01/16/24 22:26 BP 147/57 H 01/16/24 22:26 Pulse Ox 89 L 01/16/24 23:06 O2 Del Method Nasal Cannula 01/16/24 23:06 O2 Flow Rate 2 01/16/24 23:06 BMI result Body Mass Index 37.5 Middle-aged female lying in bed in mild distress on supplemental oxygen Neck supple, no JVD Regular rate and rhythm, S1-S2 heard Bilateral wheezing without crackles Abdomen soft nontender, no guarding, no rigidity Patient is awake, alert and oriented to self, place, time and person ; no focal motor deficit Psych: Normal mood No pedal edema Results Labs 01/16/24 18:51 01/16/24 18:51 Labs: Laboratory Results - last 24 hr 01/16/24 01/17/24 18:51 00:14 MCV 98.7 H MCH 32.9 MCHC 33.3 RDW 16.7 H Plt Count 364 MPV 9.0 L Immature Gran % (Auto) 0.5 H Neut % (Auto) 70.5 Lymph % (Auto) 17.2 L [place] % (Auto) 9.0 Eos % (Auto) 2.5 Baso % (Auto) 0.3 Lymph # (Auto) 1.8 [place] # (Auto) 1.0 Eos # (Auto) 0.3 Baso # (Auto) 0.0 Abs Immat Gran (auto) 0.05 H Absolute Neuts (auto) 7.6 Absolute Nucleated RBC 0.020 H Nucleated RBC % (auto) 0.2 PT 10.7 L INR 0.9 APTT 28.1 O2 Saturation 95.0 ABG pH at Pt Temp 7.49 H ABG pCO2 at Pt Temp 43 ABG pO2 at Pt Temp 73 L ABG HCO3 33 H ABG Base Excess (Actual) 9.5 Anion Gap 13 Estim Creat Clear Calc 75.2 Estimated GFR > 60 Random Glucose 123 H Lactic Acid 1.2 Calcium 9.6 Total Bilirubin 0.4 AST 14 ALT 17 Alkaline Phosphatase 65 Troponin I High Sens 16.3 D B-Natriuretic Peptide 98 Total Protein 6.2 L Albumin 3.9 Influenza Type A (PCR) NEGATIVE Influenza Type B (PCR) NEGATIVE RSV RNA Qual (PCR) NEGATIVE SARS-CoV-2 RNA (RT-PCR) NEGATIVE Imaging Radiologist's Impressions: Impressions Chest X-Ray 01/16/24 20:48 IMPRESSION: No acute cardiopulmonary disease. Assessment and Plan (1) COPD (chronic obstructive pulmonary disease): Qualifiers: COPD type: chronic bronchitis Chronic bronchitis type: simple Qualified Code(s): J41.0 - Simple chronic bronchitis Status: Acute Plan This is a 59-year-old female with pertinent history of COPD not on home oxygen, trigeminal neuralgia, hypertension, mood disorder who presents to the emergency department for evaluation of dyspnea. #. Acute hypoxic respiratory failure due to acute exacerbation of COPD: Will admit patient with supplemental oxygen. Initiating systemic steroids. Scheduled and p.r.n. DuoNebs. Continue home inhaler. Initiating azithromycin for pleiotropic effect #. Mixed hyperlipidemia: On statin #. Trigeminal neuralgia: On baclofen, gabapentin, Cymbalta and oxcarbazepine #. Hypertension: Continue home antihypertensives #. Mood disorder: Continue home mood stabilizers Med rec pending DVT prophylaxis: Lovenox Full code Admit as inpatient and will require two night minimum hospital stay for supplemental oxygen (as above), which is not possible in a lesser acute setting. Quality Stroke Does the patient have a stroke diagnosis?: No VTE Prior VTE?: No VTE Risk Level:: Medical - moderate - high VTE Device Contraindication: Treatment Not Indicated VTE Drug Contraindication: N/A - Med Ordered
[2024-01-17] MEDS: Albuterol/Iprat 2.5/0.5MG 3 ML AMPUL.NEB INHALE ×5 (01:17→18:54)
[2024-01-17] MEDS: Azithromycin 500 MG in 0.9 % Sodium Chloride 250 ML 125 MG IV (01:53)
[2024-01-17] MEDS: Benzonatate 100 MG CAPSULE PO (01:54)
[2024-01-17 05:00] LABS: MANUAL DIFF FLAG NO
[2024-01-17 05:02] LABS: Basophils Percent Auto 0.1 % (0-2); Hematocrit 39.3 % (37.0-47.0); Imm Gran Abs Auto 0.04 X10*3/uL (0.00-0.03); Imm Gran Pct Auto 0.5 % (0.0-0.4); Lymphocytes Absolute Auto 0.7 X10*3/uL (1.2-4.9); Lymphocytes Percent Auto 8.9 % (20-40); Mean Corpuscular HGB Conc 33.1 g/dl (31.0-35.0); Mean Corpuscular Hemoglobin 32.6 pg (27.0-33.0); Mean Corpuscular Volume 98.5 fL (80.0-98.0); Monocytes Absolute Auto 0.4 X10*3/uL (0.1-1.2); Monocytes Percent Auto 5.8 % (2-11); Neutrophils Absolute Auto 6.3 x10*3/uL (2.0-8.3); Neutrophils Percent Auto 84.7 % (45-73); Platelet Count 375 X10*3/uL (160-400); Red Blood Count 3.99 X10*6/uL (4.20-5.50); Red Cell Distribution Width 16.7 % (11.0-16.0); White Blood Count 7.4 X10*3/uL (4.8-10.8)
[2024-01-17 05:14] LABS: Anion Gap 15 (12-20); Blood Urea Nitrogen 17 mg/dL (9-16); Calcium 9.8 mg/dL (8.4-10.2); Carbon Dioxide 27 mmol/L (22-29); Chloride 106 mmol/L (96-108); Creatinine Clr Calc Pharmacy 77.3; Estimated Glomerular Filt Rate > 60; Glucose Random 122 mg/dL (60-115); Potassium 3.6 mmol/L (3.3-5.1); Sodium 144 mmol/L (135-145)
[2024-01-17] MEDS: Gabapentin 600 MG TABLET 1200 MG PO (05:45)
[2024-01-17] MEDS: Baclofen 10 MG TABLET 15 MG PO ×3 (05:45→23:07)
[2024-01-17] MEDS: OXcarbazepine 300 MG TABLET 600 MG PO ×3 (05:45→23:08)
[2024-01-17] MEDS: DULoxetine HCl 60 MG CAPSULE.DR PO ×2 (05:45→23:08)
[2024-01-17] MEDS: methylPREDNISolone Sod Succ 40 MG/ML VIAL IVPUSH ×2 (05:46→18:44)
--- NOTE | 2024-01-17 06:13 | PC.NURSE ---
Pt stand by assist to bedside commode. Purple bruising noted to tailbone area, Pt reports rolling off of her couch 2 days ago.
--- NOTE | 2024-01-17 07:47 | HO.PM.IMPN ---
Subjective Subjective Date of Service: 01/17/24 Interval History: Seen in follow-up for acute hypoxemic respiratory failure and COPD exacerbation Interval history: Admitted early this morning. She reports shortness of breath, wheezing, productive cough ongoing for 2 days. No fevers, chills Review of Systems Review of Systems: Yes all other systems are reviewed and are negative Physical Exam Vital Signs: Vital Signs: Last Vital Signs Temp 98.2 F 01/17/24 06:00 Pulse 74 01/17/24 06:00 Resp 17 01/17/24 06:00 BP 166/71 H 01/17/24 06:00 Pulse Ox 95 01/17/24 06:00 O2 Del Method Nasal Cannula 01/17/24 06:00 O2 Flow Rate 1 01/17/24 06:00 BMI result Body Mass Index 37.5 Objective Data Active Medications Acetaminophen (Acetaminophen 325 Mg Tablet) 650 mg PO Q6H PRN PRN Reason: Pain, Mild (Pain Scale 1-3), fever or headache Albuterol/Ipratropium (Albuterol/Iprat 2.5/0.5mg 3 Ml Ampul.Neb) 3 ml INHALE RQ4H WHILE AWAKE [place] Albuterol/Ipratropium (Albuterol/Iprat 2.5/0.5mg 3 Ml Ampul.Neb) 3 ml INHALE Q4H PRN PRN Reason: Wheezing Last Admin: 01/17/24 01:17 Dose: 3 ml Documented By: THIERRY Benzonatate (Benzonatate 100 Mg Capsule) 100 mg PO TID PRN PRN Reason: Cough Last Admin: 01/17/24 01:54 Dose: 100 mg Documented By: AMANDO Calcium Carbonate (Calcium Carbonate 750 Mg Tab.Chew) 750 mg PO Q4H PRN PRN Reason: Heartburn Enoxaparin Sodium (Enoxaparin Sodium 40 Mg/0.4 Ml Syringe) 40 mg SUBCUT Q24H [place] Azithromycin 500 mg/ Sodium (Chloride) 250 mls @ 125 mls/hr IV 2200 [place] Last Infusion: 01/17/24 04:00 Dose: Infused Documented By: AMANDO Magnesium Hydroxide (Milk Of Magnesia 30 Ml Oral.Susp) 30 ml PO DAILY PRN PRN Reason: Constipation Melatonin (Melatonin 3 Mg Tablet) 6 mg PO BEDTIME PRN PRN Reason: Insomnia Methylprednisolone Sodium Succinate (Methylprednisolone Sod Succ 40 Mg/Ml Vial) 40 mg IVPUSH Q12H [facility] Last Admin: 01/17/24 05:46 Dose: 40 mg Documented By: AMANDO Ondansetron HCl (Ondansetron Hcl 4 Mg/2 Ml Vial) 4 mg IVPUSH Q8H PRN PRN Reason: Nausea and Vomiting Sodium Chloride (0.9 % Sodium Chloride Flush 3 Ml Syringe) 3 ml IVFLUSH QSHIFT [facility] Labs 01/17/24 04:30 01/17/24 04:30 Labs: Laboratory Results - last 24 hr 01/16/24 01/17/24 01/17/24 18:51 00:14 04:30 MCV 98.7 H 98.5 H MCH 32.9 32.6 MCHC 33.3 33.1 RDW 16.7 H 16.7 H Plt Count 364 375 MPV 9.0 L 9.0 L Immature Gran % (Auto) 0.5 H 0.5 H Neut % (Auto) 70.5 84.7 H Lymph % (Auto) 17.2 L 8.9 L Duc[place]ne % (Auto) 9.0 5.8 Eos % (Auto) 2.5 0.0 Baso % (Auto) 0.3 0.1 Lymph # (Auto) 1.8 0.7 L Duc[place]ne # (Auto) 1.0 0.4 Eos # (Auto) 0.3 0.0 Baso # (Auto) 0.0 0.0 Abs Immat Gran (auto) 0.05 H 0.04 H Absolute Neuts (auto) 7.6 6.3 Absolute Nucleated RBC 0.020 H 0.000 Nucleated RBC % (auto) 0.2 0.0 PT 10.7 L INR 0.9 APTT 28.1 O2 Saturation 95.0 ABG pH at Pt Temp 7.49 H ABG pCO2 at Pt Temp 43 ABG pO2 at Pt Temp 73 L ABG HCO3 33 H ABG Base Excess (Actual) 9.5 Anion Gap 13 15 Estim Creat Clear Calc 75.2 77.3 Estimated GFR > 60 > 60 Random Glucose 123 H 122 H Lactic Acid 1.2 Calcium 9.6 9.8 Total Bilirubin 0.4 AST 14 ALT 17 Alkaline Phosphatase 65 Troponin I High Sens 16.3 D B-Natriuretic Peptide 98 Total Protein 6.2 L Albumin 3.9 Influenza Type A (PCR) NEGATIVE Influenza Type B (PCR) NEGATIVE RSV RNA Qual (PCR) NEGATIVE SARS-CoV-2 RNA (RT-PCR) NEGATIVE Assessment and Plan (1) COPD (chronic obstructive pulmonary disease): Status: Acute (2) Chronic hypercapnic respiratory failure: Status: Acute Plan 59-year-old female with pertinent history of COPD not on home oxygen, trigeminal neuralgia, hypertension, mood disorder who presents to the emergency department for evaluation of dyspnea. #. Acute hypoxic respiratory failure due to acute exacerbation of COPD IV methylprednisolone 40 mg b.i.d. DuoNebs Q.4h while awake/p.r.n. Azithromycin for pleiotropic effect Continue maintenance inhalers, albuterol p.r.n. Continue supplemental O2 to maintain oximetry 90-92%, wean as tolerated per protocol #Mixed hyperlipidemia statin #Trigeminal neuralgia baclofen, gabapentin, Cymbalta and oxcarbazepine #Hypertension Continue home antihypertensives #Mood disorder Continue home mood stabilizers DVT prophylaxis: Ramy Full code Admit as inpatient and will require two night minimum hospital stay for supplemental oxygen (as above), which is not possible in a lesser acute setting. Quality Stroke Does the patient have a stroke diagnosis?: No VTE Prior VTE?: No VTE Risk Level:: Medical - moderate - high VTE Device Contraindication: Treatment Not Indicated VTE Drug Contraindication: N/A - Med Ordered
[2024-01-17] MEDS: Enoxaparin Sodium 40 MG/0.4 ML SYRINGE SUBCUT (09:02)
[2024-01-17] MEDS: 0.9 % Sodium Chloride Flush 3 ML SYRINGE IVFLUSH ×2 (09:03→18:45)
--- NOTE | 2024-01-17 09:35 | PC.NURSE ---
Pt placed in hospital bed for comfort. alert and oriented, reports some increased WOB on any exertion. RT trialing pt on RA.
--- NOTE | 2024-01-17 11:00 | MHC.CM.PN ---
PT REPORTS SHE LIVES WITH HER SPOUSE SHE IS INDEPENDENT WITH CARE AND USES A CANE SHE HAS OXYGEN FROM [facility] SHE IS ACTIVE WITH [facility] HCP ON FILE PCP: GABRIEL CONDON DCP: HOME RESUME [facility] TO TRANSPORT
--- NOTE | 2024-01-17 11:08 | PHA.MEDREC ---
Addendum entered by Gina Martel monie 01/17/24 12:03: reviewed Original Note: Pharmacy Consult ? Medication Reconciliation Pharmacy has completed the medication reconciliation. Confirmed medications with list from Dr. spivey from 01/04/2024. Patient became hysteric and confused when I asked her when she last took her medications. I reassure the patient that she did great with helping with her med list and if she was not sure about them there was nothing to worry about. Patient calmed down a bit but was still in a bit of distress when I left the room.
--- NOTE | 2024-01-17 11:31 | PC.NURSE ---
Lab called, pt has 1/2 blood cultures positive w/ gram pos rods. Admitting provider alerted.
--- NOTE | 2024-01-17 14:20 | PC.NURSE ---
Waiting for meds from pharmacy.
[2024-01-17] MEDS: Gabapentin 400 MG CAPSULE 1200 MG PO ×2 (14:32→23:07)
[2024-01-17] MEDS: Furosemide 20 MG TABLET PO (14:35)
--- NOTE | 2024-01-17 15:02 | PC.NURSE ---
Called pharmacy X2 for late med
[2024-01-17] MEDS: VerapamiL HCL 120 MG TABLET PO ×2 (15:05→23:06)
--- NOTE | 2024-01-17 16:28 | MHC.EDTECH ---
THIS PCT JUST ASSUMED CARE OF PATIENT ,VITALS TAKEN ,PT WAS ASSISTED UNTO BEDSIDE COMMODE ,VOID AND HAD A LARGE BOWEL MOVEMENT WAS ASSISTED WITH DIANE CARE ,AND BACK IN BED ,CRANBERRY JUICE AND FRESH ICE WATER GIVEN .
--- NOTE | 2024-01-17 18:20 | PC.NURSE ---
Recevied report from previous RN Martine. Pt A&Ox3, OOB independently to the commode,VSS. Pt remains on 1L O2 via NC with SATS 9-99%. Regular diet ordered. Pt voiced concerned over lovenox shots and states that they are making her abd very tender and bruised. States she would like to talk to the provider about other possible options. Provider aware.
[2024-01-17] MEDS: HYDROcodone Bit/Acetam 5/325 TABLET 1 TAB PO (18:44)
--- NOTE | 2024-01-17 20:04 | PC.NURSE ---
assumed care of the pt at 1900. pt is A&Ox3, able to make needs known. pt able to get self up to bedside commode with staff supervision. pt received bed assignment up on [facility] room 344. report written. waiting for transport up to floor
[2024-01-17] MEDS: LORazepam 1 MG TABLET PO (23:06)
[2024-01-17] MEDS: Prazosin HCL 1 MG CAPSULE 2 MG PO (23:07)
[2024-01-17] MEDS: Atorvastatin Calcium 80 MG TABLET PO (23:08)
[2024-01-17] MEDS: Azithromycin 500 MG in 0.9 % Sodium Chloride 250 ML 250 MG IV (23:20)
[2024-01-18] VITALS (7 sets, daily range): BP systolic 139–144; BP diastolic 56–70; PULSE 77–108; RESP 18–24; TEMP 36.3; O2SAT 85–95
[2024-01-18] MEDS: Albuterol/Iprat 2.5/0.5MG 3 ML AMPUL.NEB INHALE ×3 (00:36→12:04)
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
[2024-01-18] MEDS: methylPREDNISolone Sod Succ 40 MG/ML VIAL IVPUSH (06:26)
[2024-01-18] MEDS: Enoxaparin Sodium 40 MG/0.4 ML SYRINGE SUBCUT (08:11)
[2024-01-18] MEDS: guaiFEN/Codeine SF 200/20/10ML 10 ML LIQUID PO (08:11)
[2024-01-18] MEDS: Baclofen 10 MG TABLET 15 MG PO ×2 (08:11→14:30)
[2024-01-18] MEDS: Gabapentin 400 MG CAPSULE 1200 MG PO ×2 (08:12→14:31)
[2024-01-18] MEDS: Calcium + Vitamin D 250 MG TABLET 500 MG PO (08:12)
[2024-01-18] MEDS: OXcarbazepine 300 MG TABLET 600 MG PO (08:12)
[2024-01-18] MEDS: Aspirin Enteric Coated 81 MG TABLET.DR PO (08:12)
[2024-01-18] MEDS: DULoxetine HCl 60 MG CAPSULE.DR PO (08:12)
[2024-01-18] MEDS: Furosemide 20 MG TABLET PO (08:12)
[2024-01-18] MEDS: amLODIPine Besylate 5 MG TABLET PO (08:12)
[2024-01-18] MEDS: VerapamiL HCL 120 MG TABLET PO (08:12)
[2024-01-18] MEDS: HYDROcodone Bit/Acetam 5/325 TABLET 1 TAB PO (08:17)
--- NOTE | 2024-01-18 08:46 | PC.NURSE ---
Unable to place IV x 2 attempts. Primary RN notified.
[2024-01-18] MEDS: Cyanocobalamin (Vitamin B-12) 1,000 MCG TABLET 1000 MCG PO (10:02)
--- NOTE | 2024-01-18 12:02 | MHC.CM.PN ---
pt being dcd today at [facility] ,pt declined [facility] referral saying she had a bad experience with them, t/w booked a 1:00 supervisor picking crew for pt to bring her to her dr castillo appt jan 19..at 2:00 ..pt aware that van will transport her home as well
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
--- NOTE | 2024-01-18 13:18 | P.DS_ITS ---
DS: Providers Provider Date of Service: 01/18/24 Date of admission: 01/17/24 00:55 Date of discharge: 01/18/24 Primary care physician: ESTEBAN Christianson Attending physician on discharge: Maye Harrison Discharging clinician: Maye Harrison DS: Diagnosis Discharge Diagnosis (1) COPD (chronic obstructive pulmonary disease): Status: Acute (2) Chronic hypercapnic respiratory failure: Status: Acute DS: Summary Hospital Course Hospital Course: 59-year-old female with pertinent history of COPD not on home oxygen, trigeminal neuralgia, hypertension, mood disorder who presents to the emergency department for evaluation of dyspnea. Patient states that her symptoms began a couple of days prior to presentation. She has been having dyspnea which is worse with exertion. Also has been having wheezing. Admits associated productive cough with whitish sputum production. No fever or chills. Patient states she was discharged without supplemental oxygen on 12/27 when she was admitted for COPD exacerbation. [facility]NA at home told her to use 1 L supplemental oxygen during ambulation. She was found to be satting 76% on room air as per [facility] on the day of presentation and was sent to the ER. She denies chest pain, palpitations, fever or chills. No nausea, vomiting, abdominal pain or changes in urinary or bowel habits. In the emergency department, patient requiring 2 L supplemental oxygen. She was given IV steroids by EM. Hospital course: acute hypoxemic respiratory failure and COPD exacerbation- patient was started on nebs, steroids, antibiotics: Patient seems to be improved, shortness of breaths seems to be improved, sats /vitals seems fine , talking in full sentences, seen by respirtaory -oxygen updated to 2 liters - patient going with a [employer] 02 tank and her oxygen supplies. complete azithomycin 250 mg po daily for 4 days prednisone 40 mg po daily for 4 days . try to cut down on pain meds . follow up with pulmonary outpatient for further management ,consider outpatient sleep study. plan: complete azithomycin 250 mg po daily for 4 days prednisone 40 mg po daily for 4 days . try to cut down on pain meds . follow up with pulmonary outpatient for further management ,consider outpatient sleep study. Patient says she has already had schedule appointment with Pulmonary on january 19. Above management discussed with the patient in detail length she understand and in agreement with the above plan, time spent 40 minutes and 50% time spent on counseling. Time Attestation Total time managing care of this patient today: 40 mintues. Discharge Coordination Time (in mins): 40 min Quality: Safe Use of Opioids Does Pt have an Active Cancer Diagnosis on the Problem List?: No Quality: Stroke Does the patient have a stroke diagnosis?: No Physical Exam Vital Signs: Vital Signs: Last Vital Signs BMI result Body Mass Index 37.5 vitals: BP: 144/70 mmHg Pulse: 88, respiratory rate 18, temp 97.4, sats 91% on room air. Appearance: Alert.? Oriented X3.? Talking in full sentences, not in distress. cvs: rrr, [id number] . res: clear to auscultation ,no rhonchii or wheezing abd: no rebound or guarding ,nt, bs present. ext pulses present , no cyanosis . neuro: axo3 , nonfocal. DS: Data Data Completed and Pending Completed studies during hospitalization [Text1]: Procedures Assistance with Respiratory Ventilation, Less than 24 Consecutive Hours, Continuous Positive Airway Pressure (12/10/23) Labs on day of discharge: Preliminary micro results at discharge 01/16/24 18:51 Blood Culture - Preliminary Blood - Venous No growth after 24 hours. Imaging Chest x-ray: Radiologist's impression: ITS Impressions Chest X-Ray 01/16/24 20:48 IMPRESSION: No acute cardiopulmonary disease. Discharge Plan Discharge Anticipated Discharge Date/Time: 01/18/24 13:02 Patient Disposition: Home Health Service Discharge Diagnosis: copd excerebation Referrals: [facility] [Other] - 1 Week Sirisha Huertas FNP-BC [Primary Care Provider] - 1 Week Discharge Medications: New prednisone 20 mg tablet 40 mg PO DAILY Qty: 8 0RF azithromycin 250 mg tablet 250 mg PO DAILY 120 Days Qty: 120 0RF Continued ipratropium-albuterol 0.5 mg-3 mg(2.5 mg base)/3 mL solution for nebulization 3 ml inhalation RQ4H WHILE AWAKE PRN (Reason: sob) 90 Days Qty: 180 0RF baclofen 15 mg Tablet 15 mg PO TID furosemide [Lasix] 20 mg tablet 20 mg PO DAILY Qty: 7 0RF lidocaine 4 % Cream 1 appl TOPICAL DAILY PRN (Reason: Pain) calcium carbonate-vitamin D3 600 mg-5 mcg (200 unit) Tablet 1 tab PO DAILY Stiolto Respimat 2.5-2.5 mcg/actuation mist 2 puff INHALATION DAILY vitamin X14-ipafw acid 0.5-1 mg Tablet 1 tab PO DAILY atorvastatin 80 mg tablet 80 mg PO BEDTIME hydrocodone-acetaminophen 5-325 mg tablet 1 tab PO DAILY PRN (Reason: Pain) jltbmzrkpz-fjmwcjrixvwgs-hscl 50-325-40 mg tablet 1 tab PO DAILY PRN (Reason: Headache) hyoscyamine sulfate 0.125 mg tablet 0.125 - 0.25 mg PO Q4-6H PRN (Reason: Abdominal Discomfort) gabapentin 300 mg capsule 1,200 mg PO TID oxcarbazepine 600 mg tablet 600 mg PO BID lorazepam 1 mg tablet 0.5 - 1 mg PO DAILY PRN (Reason: Anxiety) duloxetine 60 mg capsule,delayed release(DR/EC) 60 mg PO BID amlodipine 5 mg Tablet 5 mg PO DAILY Qty: 90 0RF Protocol: Hold for SBP< HOLD for SBP < : 90 aspirin 81 mg Tablet,Delayed Release (Dr/Ec) 81 mg PO DAILY Qty: 90 0RF (DME) nebulizer and compressor Device See Rx Instructions .Route Qty: 1 0RF Rx Instructions: As directed codeine-guaifenesin 8-200 mg/5 mL liquid 5 ml PO Q6H PRN (Reason: cough) Qty: 473 0RF verapamil 120 mg tablet 120 mg PO BID Qty: 60 1RF prazosin 2 mg capsule 2 mg PO BEDTIME (DME) Oxygen Home Use Kit See Rx Instructions .ROUTE Rx Instructions: As directed Discharge Orders: Discharge Order (Routine); Ordered 01/18/24 Ordered By: Maye Harrison Diet: Advance to usual diet Activity on Discharge: As tolerated Stand Alone Forms: Patient Portal Discharge page Print Language: Slovak Care Plan Goals: acute hypoxemic respiratory failure and COPD exacerbation- patient was started on nebs, steroids, antibiotics: Patient symptoms seems to be improved, patient going with a [employer] tank and her oxygen supplies. complete azithomycin 250 mg po daily for 4 days prednisone 40 mg po daily for 4 days . try to cut down on pain meds . follow up with pulmonary outpatient for further management ,consider outpatient sleep study. Health Concerns: complete azithomycin 250 mg po daily for 4 days prednisone 40 mg po daily for 4 days . try to cut down on pain meds . follow up with pulmonary outpatient for further management ,consider outpatient sleep study. Plan of Treatment: As above. Assessment: As above.
--- NOTE | 2024-01-18 14:40 | W.MHC.F2F ---
Service Date Service Date: 01/18/24 Encounter Date of encounter: 01/18/24 Encounter: copd excerebation Reasons for Services Signs and symptoms assessed: generalised weak Reason for physical therapy: home safety and mobility, therapeutic exercises, restore joint function, gait/transfer training, assess need for DME, ADL training, energy conservation and other MD Overseeing Care: Sirisha Huertas Homebound: Leaving the home is medically contraindicated at this time without the asist of a device and/or another person due th the listed conditions above and below. Reason homebound: weakness related to hospital stay Homebound supporting statement: Patient already has VNA, patient generalized weak post hospitalization -patient will be going home with PT. Resume VNA. Certification: Based on the above findings, I certify that this patient is confined to the home and needs intermittent correction care, physical therapy and/or speech therapy, or continues to need occupational therapy. The patient is under my care, and I have initiated the establishment of the plan of care. The patient will be followed by a physician who will periodically review the plan of care. Time Spent With Patient Time: Total time managing care of this patient today ____ minutes.
== END 2024-01-18 15:44 | disposition home health service (06) | DRG 140 ==
LOC: HO.ED 01-17 00:50 → HO.EDOVER 01-17 01:02 → HO.S3 01-17 19:37
PROVIDERS: Admitting Provider Student in an Organized Health Care Education/Training Program; Emergency Provider Emergency Medicine Emergency Medical Services; PCP Registered Nurse; Visit Provider Internal Medicine
DX: J44.1 Chronic obstructive pulmonary disease with (acute) exacerbation (principal); J96.21 Acute and chronic respiratory failure with hypoxia; Z99.81 Dependence on supplemental oxygen; J96.22 Acute and chronic respiratory failure with hypercapnia; E78.2 Mixed hyperlipidemia; F17.210 Nicotine dependence, cigarettes, uncomplicated; G47.33 Obstructive sleep apnea (adult) (pediatric); Z71.6 Tobacco abuse counseling; I10 Essential (primary) hypertension; G50.0 Trigeminal neuralgia; F39 Unspecified mood [affective] disorder; Z20.822 Contact with and (suspected) exposure to COVID-19; Z91.040 Latex allergy status; Z91.041 Radiographic dye allergy status; Z79.51 Long term (current) use of inhaled steroids; Z79.52 Long term (current) use of systemic steroids; Z79.899 Other long term (current) drug therapy
CPT/HCPCS: 0241U; 36415; 71045; 80048; 80053; 82803; 83605; 83880; 84484; 85025; 85610; 85730; 87040; 87205; 93005; 94640; 97162; 99285; J0456; J1650; J2919

== ENCOUNTER → 2024-01-16 18:27 | Outpatient (BNV) | payer BC, SELFPAY | PROVIDERS: Admitting Provider Student in an Organized Health Care Education/Training Program; Emergency Provider Emergency Medicine Emergency Medical Services; PCP Registered Nurse; Visit Provider Internal Medicine Cardiovascular Disease | DX: R94.31 Abnormal electrocardiogram [ECG] [EKG] (principal) | CPT/HCPCS: 93010 ==

== ENCOUNTER → 2024-01-17 00:55 | Outpatient (BNV) | payer BC, SELFPAY | PROVIDERS: Admitting Provider Student in an Organized Health Care Education/Training Program; Emergency Provider Emergency Medicine Emergency Medical Services; Visit Provider Student in an Organized Health Care Education/Training Program | DX: J41.0 Simple chronic bronchitis (principal); J96.12 Chronic respiratory failure with hypercapnia | CPT/HCPCS: 99222; 99239; 99499; G0180 ==

== ENCOUNTER 2024-01-20 13:14 | Outpatient (AMB) | payer BC, SELFPAY ==
--- NOTE | 2024-01-20 13:31 | MHC.OFFVIS ---
Vital Signs 01/20/24 13:35 Height 5 ft 1 in Weight 191 lb BMI 36.1 BP 136/72 Blood Pressure Location Rt brachial Position Sitting Pulse 78 Pulse Source Doppler Pulse Oximetry (%) 96 Oxygen Delivery Method Room Air Intake Visit Reasons: COPD Allergies Iodinated Contrast Media [IV CONTRAST] Allergy (Intermediate, Verified 01/16/24 18:23) HIVES acetaminophen [From VICODIN] Allergy (Unknown, Verified 01/16/24 18:23) VOMITING hydrocodone [From VICODIN] Allergy (Unknown, Verified 01/16/24 18:23) VOMITING latex [LATEX] Allergy (Unknown, Verified 01/16/24 18:23) RASH oxycodone [From PERCOCET] Allergy (Unknown, Verified 01/16/24 18:23) VOMITING procaine [From Novocain] Allergy (Unknown, Verified 01/16/24 18:23) HIVES morphine [MORPHINE] Adverse Reaction (Unknown, Verified 01/16/24 18:23) VOMITING HPI Comments Details: The patient is a 59 year woman with a known history of tobacco dependency and COPD. Apparently back in February she developed worsening respiratory symptoms and was admitted to the hospital with COPD exacerbation. While she was there the patient did have a CT scan of the chest which was personally reviewed by me. It appears patient does have underlying pulmonary nodules subcentimeter in size, as well as, emphysema evidence of bronchitis. The patient does use oxygen activity. She also benefits from using oxygen while sleeping. The patient also needs to quit smoking. She understands the has is having oxygen and smoking. 07/19/2023 the patient is here for a pulmonary follow-up visit. Overall she is doing about the same. She has not using the oxygen regularly. She did have an overnight oximetry done several months ago on 2 L nasal cannula demonstrating that she actually does require the 2 L and actually would benefit from a little more oxygen. However, she has not using it at also I did advise her just to go back on using the oxygen. She has significant trigeminal neuralgia and neuropathy in general making it difficult for her to have anything over head and ear area. Therefore, she is going to have to figure out a way that would work for her. She does not tolerate a oxygen mask either because of the same problem. She is going to look to see if she can find a solution otherwise will can call [facility] to see if they can help her. The patient unfortunately she continues to smoke cigarettes. She does want to quit she wants to try the Nicotrol nasal spray. Will send to the pharmacy for her to try. The patient also did have pulmonary function studies that [facility] last year. She does have significant COPD. We do not have those PFTs available at this time but we will request them. She will be a great candidate for pulmonary rehabilitation at this time. The patient also had a CT scan of the chest back in February 2023 demonstrating multiple nodules largest 1 measuring 5 mm in size. She is high risk for malignancy due to her smoking history therefore she will have a repeat CT scan the fall 2023. 01/20/2024 the patient is here for a pulmonary follow-up visit. The patient has been hospitalized now about 3 times since we last spoke. I did evaluate her in the hospital as well. Has had significant wheezing. Has been requiring prednisone. Indeed she may have an allergic component to her bronchospasms. She does have significant eosinophilia. therefore, will go ahead and request additional testing including allergy testing so we can address her persistent bronchospasms. Currently she is on 40 mg of prednisone. She only taper. We did go over her inhalers. She needs to also continue to use her nebulizer therapy 2 to 4 times a day. Trelegy inhaler will be effective for her. She will go ahead and start that inhaler and we did instruct her how to use it. The patient is also using her oxygen. We did do a brief walking oximetry to make sure that she was getting adequate oxygenation. She need to continue using 2 L with activity. She does not using her nose because it does aggravate her nose so therefore she does only get some administration. The patient also has underlying daytime drowsiness. It was documented the patient is snoring. She also has headaches in the morning. The patient does have an elevated [place] score of 10/24. He is using oxygen with sleep. Will go ahead and request an in-lab sleep study at this time. [facility] Medical History (Updated 01/20/24 @ 21:59 by Denys Henriquez MD) JUANITO (obstructive sleep apnea) Allergies Hypertension Elevated troponin COPD (chronic obstructive pulmonary disease) Chronic hypercapnic respiratory failure Trigeminal neuralgia Pulmonary nodules Mixed hyperlipidemia Peripheral neuropathy Tobacco use disorder Mood disorder Surgical History History of esophagogastroduodenoscopy (EGD) History of colonoscopy History of lumbar discectomy History of tubal ligation History of excision of mass History of shoulder surgery Social History Household Members: Spouse Housing: Condominium Do you presently have visiting nurse or other home services: Yes (nursing - frequently) Alcohol intake: current Alcohol intake frequency: holidays/special occasions only Alcohol type: wine Comment: pt refuse bed alarm Patient Tobacco Use Status: Current everyday Tobacco user Tobacco use type: Cigarette Cigarette Packs Per Day: 1 Cigarettes Per Day: 20.0 Years Smoked: 40 e-Cigarette/Vaping Use: Currently Using Second Hand Smoke Exposure: Yes Substance Use Type: Marijuana Advance Directives Date on File: 03/09/23 service: No Review of Systems Const Reports daytime sleepiness, Denies fever(s), Reports headache(s) and Reports snoring Eyes Denies change in vision ENT Reports headache(s) and Reports nasal congestion Card Denies chest pain and Reports dyspnea on exertion Resp Reports chest congestion, Reports cough, Reports dyspnea on exertion, Reports snoring and Reports wheezing GI Reports no additional complaints Musc Reports no additional complaints Skin/Breast Denies rash Neuro Reports headache(s) Luis/Lymph Denies lymphadenopathy Aller/Immun Reports no additional complaints and Reports wheezing Physical Exam Vital Signs: Last Vital Signs Pulse 78 01/20/24 13:35 BP 136/72 01/20/24 13:35 Pulse Ox 96 01/20/24 13:35 Oxygen Delivery Method Room Air 01/20/24 13:35 BMI result Body Mass Index 36.1 Last Vital Signs Temp 97.6 F 12/12/23 08:00 Pulse 110 H 12/12/23 09:52 Resp 22 H 12/12/23 09:52 BP 170/89 H 12/12/23 08:00 Pulse Ox 92 12/12/23 08:00 O2 Del Method Nasal Cannula 12/12/23 08:00 O2 Flow Rate 2 12/12/23 08:00 FiO2 28 12/11/23 04:00 BMI result Body Mass Index 30.6 Const General: alert Limitations: other limitations (on BIPAP mask) HEENT Head: Yes normocephalic and Yes atraumatic Neck Neck: Yes trachea midline, Yes supple and Yes no JVD Chest Chest palpation & inspection: normal inspection of the chest Resp Effort & Inspection: prolonged expiratory phase Auscultation: wheezes throughout and diminished lung sounds Cardio Rate: regular rate Rhythm: regular rhythm Heart sounds: S1 normal heart sound present, S2 normal heart sound present, no gallops and Murmur heart sound present systolic early GI Auscultation: normal bowel sounds Skin General skin exam: no rashes or lesions noted Neuro General: no focal motor deficits Extrem General: Yes no clubbing, cyanosis or edema Results Reviewed Results Reviewed: personally reviewed CT chest 02/2023, 5mm pulmonary nodule, bronchitis [address] [address] [address] Scan Report Signed Patient: Zulma Alves MR#: [id number] : 1965 Acct:[id number] Age/Sex: 58 / F ADM Date: 03/04/23 Loc: [place] [address]: Jeff Wilkes MD Ordering Physician: Sue Devries CNP Date of Service: 03/04/23 Procedure(s): CT chest wo IV con Accession Number(s): [id number] cc: Sue Devries CNP; GINA NAZARIO NP~ EXAMINATION: CT CHEST WITHOUT CONTRAST CLINICAL INFORMATION: Shortness of breath, hypoxia. COMPARISON: No similar priors. TECHNIQUE: Multidetector volumetric CT imaging of the chest was done. Axial MIP volume rendering provided. Sagittal and coronal reformatted images were obtained. This CT examination was performed using dose optimization techniques as appropriate, variously including the following: *Automated exposure control *Adjustment of mA and/or kV according to patient size (this includes techniques or standardized protocols for targeted exams where dose is matched to indication/reason for exam; i.e. extremities or head) *Use of iterative reconstruction technique DLP: 322 mGy-cm FINDINGS: LUNGS: Moderate to severe diffuse bronchial wall thickening with scattered foci of intrabronchial mucous secretions. Scattered mosaic attenuation of lung parenchyma. No dense consolidation. Central airways are patent. Multiple solid bilateral pulmonary nodules largest in the right upper lobe measuring 5 mm (image 129 series 4). MEDIASTINUM: Normal heart size. No pericardial effusion. No mediastinal lymphadenopathy. Normal appearance of the thyroid gland. Evaluation of the hilar structures is limited in the absence of IV contrast. CORONARY ARTERY CALCIFICATION: Multivessel coronary artery calcifications. PLEURA: No pleural effusion or pneumothorax. AXILLA: No axillary lymphadenopathy. UPPER ABDOMEN: Limited noncontrast examination without significant abnormality. OSSEOUS STRUCTURES: No acute or aggressive appearing osseous findings. CT/CT chest wo IV con IMPRESSION: 1. Moderate to severe diffuse bronchial wall thickening with scattered foci of intrabronchial mucous secretions and mosaic attenuation of the lung parenchyma. These findings are suggestive of an infectious or inflammatory process of the small airways with some degree of air trapping. 2. Multiple solid pulmonary nodules, largest measuring 5 mm. Assuming patient has no history of malignancy, recommend follow-up per Fleischner Society recommendations. According to the UPDATED 2017 Fleischner Society recommendations, the advised followup imaging for solid nodules < 6 mm is: LOW RISK PATIENT: No routine follow up. HIGH RISK PATIENT: Optional CT at 12 months. Fleischner guidelines were followed. Dictated By: Rebeca Kate Signed By: <Electronically signed by Rebeca Kate in OV> 03/04/232145 DD/ 50 TD/TT: Geodetic Advisor: Assessment & Plan Assessment & Plan (1) Asthma: Code(s): J45.909 - Unspecified asthma, uncomplicated Category: Medical Qualifiers: Asthma severity: severe Asthma complication type: with acute exacerbation Asthma persistence: persistent Qualified Code(s): J45.51 - Severe persistent asthma with (acute) exacerbation (2) JUANITO (obstructive sleep apnea): Code(s): G47.33 - Obstructive sleep apnea (adult) (pediatric) Category: Medical (3) Tobacco use disorder: Code(s): F17.200 - Nicotine dependence, unspecified, uncomplicated Category: Medical (4) COPD (chronic obstructive pulmonary disease): Code(s): J44.9 - Chronic obstructive pulmonary disease, unspecified Category: Medical Qualifiers: COPD type: chronic bronchitis Chronic bronchitis type: simple Qualified Code(s): J41.0 - Simple chronic bronchitis (5) Pulmonary nodules: Code(s): R91.8 - Other nonspecific abnormal finding of lung field Category: Medical (6) Allergies: Code(s): T78.40XA - Allergy, unspecified, initial encounter Category: Medical Qualifiers: Encounter type: initial encounter Qualified Code(s): T78.40XA - Allergy, unspecified, initial encounter Plan stop Stiolto start Trelegy prednisone taper bloodwork/allergy testing will benefit from Biolgic therapy; Dupixent continue oxygen supplementation with activity and sleep inlab sleep study smoking cessation: trial nicotrol nasal spray repeat CT chest 02/2024 pulmonary rehab [place] [facility] [place] (awaiting PFTs from [facility]) F/U 2-4 weeks Orders: Orders Immunoglobulin E Today J45.909 - Unspecified asthma, uncomplicated, T78.40XA - Allergy, unspecified, initial encounter Complete Blood Count Auto Diff Today J45.909 - Unspecified asthma, uncomplicated, T78.40XA - Allergy, unspecified, initial encounter Basic Metabolic Panel Today J45.909 - Unspecified asthma, uncomplicated, T78.40XA - Allergy, unspecified, initial encounter BRITTANY Reflex Titer and Pattern Today J45.909 - Unspecified asthma, uncomplicated, T78.40XA - Allergy, unspecified, initial encounter RT PSG in-lab sleep study Today G47.33 - Obstructive sleep apnea (adult) (pediatric) Immunoglobulins,IgG IgA IgM Today J45.909 - Unspecified asthma, uncomplicated, T78.40XA - Allergy, unspecified, initial encounter Resp Allergy Profile Region I Today J45.909 - Unspecified asthma, uncomplicated, R91.1 - Solitary pulmonary nodule, T78.40XA - Allergy, unspecified, initial encounter Medications: New keqgixeyxvj-ygshkbdfe-eokpswrl 200-62.5-25 mcg (Trelegy Ellipta) 1 inh inhalation DAILY 30 days 60 ea 12RF prednisone PO daily; 3 tabs x 3 days, then 2 tabs daily x 3 days, then 1 tab x 3 days to complete. 9 days 18 tabs 0RF Refilled ipratropium-albuterol 0.5 mg-3 mg(2.5 mg base)/3 mL 3 mL inhalation RQ4H WHILE AWAKE 90 days PRN 180 mL 0RF sob J41.0 - Simple chronic bronchitis, J45.909 - Unspecified asthma, uncomplicated Coding Level of Care Code Est Pt Level 5 (59996) Diagnoses Severe persistent asthma with acute exacerbation J45.51 Asthma severity: severe Asthma complication type: with acute exacerbation Asthma persistence: persistent JUANITO (obstructive sleep apnea) G47.33 Tobacco use disorder F17.200 Simple chronic bronchitis J41.0 COPD type: chronic bronchitis Chronic bronchitis type: simple Pulmonary nodules R91.8 Allergy, initial encounter T78.40XA Encounter type: initial encounter Time Spent (min) 45
[2024-01-20 13:35] VITALS: BP 136/72; PULSE 78; O2SAT 96; BMI 36.1
== END 2024-01-20 14:41 | disposition home or self-care (01) ==
PROVIDERS: PCP Nurse Practitioner Family; Visit Provider Hospitalist
DX: J45.51 Severe persistent asthma with (acute) exacerbation (principal); G47.33 Obstructive sleep apnea (adult) (pediatric); J41.0 Simple chronic bronchitis; R91.8 Other nonspecific abnormal finding of lung field; F17.210 Nicotine dependence, cigarettes, uncomplicated; T78.40XA Allergy, unspecified, initial encounter
CPT/HCPCS: 99215

== ENCOUNTER → 2024-01-20 13:14 | Outpatient (BNVA) | payer BC, SELFPAY | PROVIDERS: PCP Nurse Practitioner Family; Visit Provider Hospitalist | DX: J44.9 Chronic obstructive pulmonary disease, unspecified (principal) ==

== ENCOUNTER 2024-01-31 08:29 | Outpatient (AMB) | payer BC, SELFPAY ==
--- NOTE | 2024-01-31 08:19 | A.OFFVIS_ITS ---
Vital Signs 01/31/24 08:33 Height 5 ft 1 in BMI Reason not done Patient refused/unable BP 140/68 H Blood Pressure Location Rt brachial Position Sitting Pulse 96 Pulse Source Pulse Oximeter Pulse Oximetry (%) 87 L Oxygen Delivery Method Nasal Cannula Oxygen Flow Rate 2 Intake Visit Reasons: COPD Allergies Iodinated Contrast Media [IV CONTRAST] Allergy (Intermediate, Verified 01/31/24 09:51) HIVES acetaminophen [From VICODIN] Allergy (Unknown, Verified 01/31/24 09:51) VOMITING hydrocodone [From VICODIN] Allergy (Unknown, Verified 01/31/24 09:51) VOMITING latex [LATEX] Allergy (Unknown, Verified 01/31/24 09:51) RASH oxycodone [From PERCOCET] Allergy (Unknown, Verified 01/31/24 09:51) VOMITING procaine [From Novocain] Allergy (Unknown, Verified 01/31/24 09:51) HIVES morphine [MORPHINE] Adverse Reaction (Unknown, Verified 01/31/24 09:51) VOMITING HPI HPI COPD: Details: Zulma is a pleasant 59 year old female, current smoker, with underlying COPD, h/o acute respiratory failure, HTN and pulmonary nodules. She is under the care of Dr. Henriquez and presents today for an acute visit. She was last seen by him on 01/20/24, given a prednisone taper, switched to [facility] and sent for labs to consider a biologic. Since November she has been evaluated in the ED on 5 different occasions due to COPD exacerbations. She has three days left of her prednisone taper and continues to have audible wheezes and moderate dyspnea on exertion. She is currently using 2L supplemental oxygen with ambulation, 1L at NOC and room air at rest. Upon arrival to the exam room, patient using small portable tank at 2L, satting 87%. However tank empty and switched to our tanks with rise in O2, 91-93% on 2 L at rest. [facility] Medical History JUANITO (obstructive sleep apnea) Allergies Hypertension Elevated troponin COPD (chronic obstructive pulmonary disease) Chronic hypercapnic respiratory failure Trigeminal neuralgia Pulmonary nodules Mixed hyperlipidemia Peripheral neuropathy Tobacco use disorder Mood disorder Surgical History History of esophagogastroduodenoscopy (EGD) History of colonoscopy History of lumbar discectomy History of tubal ligation History of excision of mass History of shoulder surgery Social History Household Members: Spouse Housing: Condominium Do you presently have visiting nurse or other home services: Yes (nursing - frequently) Alcohol intake: current Alcohol intake frequency: holidays/special occasions only Alcohol type: wine Comment: pt refuse bed alarm Patient Tobacco Use Status: Current everyday Tobacco user Tobacco use type: Cigarette Cigarette Packs Per Day: 1 Cigarettes Per Day: 15 Years Smoked: 40 Smoked in Last 30 Days: Yes e-Cigarette/Vaping Use: Currently Using Second Hand Smoke Exposure: Yes Use of substances other than those prescribed or required for medical reasons: No Substance Use Type: Marijuana Advance Directives: Yes Advance Directives on File: Yes Advance Directives Date on File: 03/09/23 service: No Review of Systems Const Denies chills, Denies excessive sweating, Denies fever(s), Denies headache(s) and Denies night sweats ENT Reports Normal hearing present, Denies headache(s), Denies nasal congestion, Denies nasal discharge, Denies post nasal drip and Denies sore throat Card Denies chest pain, Denies chest pain at rest, Denies chest pain with activity, Denies claudication and Denies leg edema Resp Denies chest congestion, Denies excessive phlegm production and Denies stridor Musc Denies myalgias Neuro Reports Normal hearing present and Denies headache(s) Endo Denies excessive sweating Luis/Lymph Denies lymphadenopathy Aller/Immun Denies seasonal rhinorrhea Physical Exam Vital Signs: Last Vital Signs Pulse 96 01/31/24 08:33 BP 140/68 H 01/31/24 08:33 Pulse Ox 87 L 01/31/24 08:33 Oxygen Delivery Method Nasal Cannula 01/31/24 08:33 Oxygen Flow Rate 2 01/31/24 08:33 Const General: cooperative, no acute distress and alert Nutritional Appearance: obese Orientation/consciousness: patient oriented x3 HEENT Head: Yes normal to inspection, Yes normocephalic and Yes atraumatic Ears: hearing grossly normal bilaterally and external ears normal Eyes General: appearance normal, both eyes and all related structures Eyelids: Yes eyelids normal Sclerae: sclerae normal EOM: EOMs intact bilaterally Neck Neck: Yes normal visual inspection and Yes no lymphadenopathy Lymphatic: no lymphadenopathy noted Chest Chest palpation & inspection: normal inspection of the chest Resp Other: cough which resulted in moderate LUQ abdominal pain Effort & Inspection: normal respiratory effort, able to speak in complete sentences, audible wheezes, Actively coughing, no stridor, not tachypneic, no tripod positioning and no use of accessory muscles Auscultation: wheezes (minimal improvement after duoneb) expiratory wheezes Cardio Jugular venous distension: no JVD Rate: regular rate Rhythm: regular rhythm Skin Other: warm, dry General skin exam: no rashes or lesions noted Neuro General: patient oriented x3 Cranial nerves: Yes Normal hearing present Cognition (Neuro): normal cognition Gait exam (Neuro): Normal gait present Extrem General: Yes normal to inspection and Yes no pedal edema Psych Appearance: grossly normal Speech and movement: Normal speech and movement present and Clear speech present Affect: normal affect Attitude: cooperative Thought process: Normal thought process present Thought content: Normal thought content present Insight: Good insight present (Psych) Judgement: Good judgement present (Psych) Office Procedures Nebulizer Treatment Nebulizer Treatment [id number]-Sgtvspruk/MDI RX initial, or Nebulizer Subsequent Treatment Office Meds ipratropium 0.5 mg-albuterol 3 mg (2.5 mg base)/3 mL nebulization soln Performing Provider: Juli Vaughn NP Performing Location: [facility] [place] Pulmonology Services Administered by: Dennise Carmichael LPN on 01/31/24 09:03 Dose Route Admin Location Dispensed Lot Number Expiration Date [facility] Technologist Infectious Disease 3 mL inhalation 3 mL [id number] 10/11/25 70729-780-92 [facility] Assessment & Plan Assessment & Plan (1) Asthma: Code(s): J45.909 - Unspecified asthma, uncomplicated Category: Medical Qualifiers: Asthma severity: severe Asthma persistence: persistent Asthma complication type: with acute exacerbation Qualified Code(s): J45.51 - Severe persistent asthma with (acute) exacerbation (2) JUANITO (obstructive sleep apnea): Code(s): G47.33 - Obstructive sleep apnea (adult) (pediatric) Category: Medical (3) Tobacco use disorder: Code(s): F17.200 - Nicotine dependence, unspecified, uncomplicated Category: Medical (4) COPD (chronic obstructive pulmonary disease): Code(s): J44.9 - Chronic obstructive pulmonary disease, unspecified Category: Medical Qualifiers: COPD type: chronic bronchitis Chronic bronchitis type: simple Qualified Code(s): J41.0 - Simple chronic bronchitis (5) Pulmonary nodules: Code(s): R91.8 - Other nonspecific abnormal finding of lung field Category: Medical (6) Allergies: Code(s): T78.40XA - Allergy, unspecified, initial encounter Category: Medical Qualifiers: Encounter type: initial encounter Qualified Code(s): T78.40XA - Allergy, unspecified, initial encounter Plan Patient with minimal improvement after Duoneb, with audible wheezes and expira tory wheezes throughout, despite being on prednisone, now requiring 2L of supplemental oxygen at rest. Discussed with patient treating on an outpatient basis versus ED evaluation. After discussion, patient agreeable to ED evaluation. Will have close follow up in 1-2 weeks outpatient. Orders: Orders AMB Nebulizer Treatment Today J41.0 - Simple chronic bronchitis, J45.51 - Severe persistent asthma with (acute) exacerbation Coding Level of Care Code Est Pt Level 5 (41525) Diagnoses Severe persistent asthma with acute exacerbation J45.51 Asthma severity: severe Asthma persistence: persistent Asthma complication type: with acute exacerbation JUANITO (obstructive sleep apnea) G47.33 Tobacco use disorder F17.200 Simple chronic bronchitis J41.0 COPD type: chronic bronchitis Chronic bronchitis type: simple Pulmonary nodules R91.8 Allergy, initial encounter T78.40XA Encounter type: initial encounter CPT Codes Nebulizer Treatment - Nebulizer Treatment, initial or subsequent: [id number]- Nebulizer/MDI RX initial, or Nebulizer Subsequent Treatment ([id number])
[2024-01-31 08:33] VITALS: BP 140/68; PULSE 96; O2SAT 87
== END 2024-01-31 09:56 | disposition home or self-care (01) ==
PROVIDERS: PCP Registered Nurse; Visit Provider Nurse Practitioner Family
DX: J45.51 Severe persistent asthma with (acute) exacerbation (principal); G47.33 Obstructive sleep apnea (adult) (pediatric); F17.210 Nicotine dependence, cigarettes, uncomplicated; R91.8 Other nonspecific abnormal finding of lung field; T78.40XA Allergy, unspecified, initial encounter
CPT/HCPCS: 99214

== ENCOUNTER → 2024-01-31 08:29 | Outpatient (BNVA) | payer BC, SELFPAY | PROVIDERS: PCP Registered Nurse; Visit Provider Nurse Practitioner Family | DX: J44.9 Chronic obstructive pulmonary disease, unspecified (principal); J45.909 Unspecified asthma, uncomplicated; T78.40XA Allergy, unspecified, initial encounter; G47.33 Obstructive sleep apnea (adult) (pediatric) ==

== ENCOUNTER 2024-01-31 09:39 | Inpatient (IN) | payer BC, MEDICARE, SELFPAY ==
[2024-01-31] VITALS (9 sets, daily range): BP systolic 134–167; BP diastolic 65–81; PULSE 74–124; RESP 15–24; TEMP 36.3–36.7; O2SAT 86–95; BMI 35.0; BMI 36.6
--- NOTE | ~2024-01-31 | XR_ITS ---
EXAMINATION: XR CHEST CLINICAL INFORMATION: Shortness of breath. COMPARISON: Chest radiograph dated 01/16/2024. TECHNIQUE: Frontal view of the chest was obtained. FINDINGS: The heart is normal in size. The lungs are clear. No pleural effusion. No pneumothorax. No acute osseous abnormality. XR/XR chest 1V IMPRESSION: No acute cardiopulmonary disease. Stable appearance of the heart and lungs.
--- NOTE | 2024-01-31 11:30 | MHC.EDTECH ---
This tech went to introduce herself, pt asked for coffee, call [facility] within reach. Coffee given, pt satisfied.
--- NOTE | 2024-01-31 11:32 | PC.NURSE ---
Addendum entered by Lashonda Veronica RN 01/31/24 11:38: Patient also refusing to take off dress and change into hospital [facility] at this time. Original Note: Assumed care of this patient at 1100, patient sent from dr. Henriquez's office d/t low numbers patient discovered her o2 tank was empty during appointment. Patient endorses mild SOB/WOB on exertion, wheezy.
--- NOTE | 2024-01-31 12:12 | ED_ITS ---
HPI - SOB/Dyspnea General Chief Complaint: Dyspnea Stated Complaint: Diff breathing Time Seen by Provider: 01/31/24 11:52 Source: patient and old records reviewed Mode of arrival: ambulatory Limitations: no limitations History of Present Illness ED Provider: DR. Lopez HPI Narrative: 59-year-old female, current smoker with underlying COPD and history respiratory failure, hypertension, pulmonary nodules walked from Dr. Henriquez's office to the ER for further evaluation of shortness of breath, hypoxic, patient use supplemental oxygen at home 1-2 L, patient found to be hypoxic today at 87%. Reports productive cough with clear sputum, no fever, or chills. Related Data Home Medications ?Medication ?Instructions ?Recorded ?Confirmed atorvastatin 80 mg tablet 80 mg PO BEDTIME 03/04/23 01/17/24 [id number]-rqtucxgbhvbdl-scjgqbnc 1 tab PO DAILY PRN Headache 03/04/23 01/17/24 50 mg-325 mg-40 mg tablet duloxetine 60 mg capsule,delayed 60 mg PO BID 03/04/23 01/17/24 release gabapentin 300 mg capsule 1,200 mg PO TID 03/04/23 01/17/24 hydrocodone 5 mg-acetaminophen 325 1 tab PO DAILY PRN Pain 03/04/23 01/17/24 mg tablet hyoscyamine sulfate 0.125 mg tablet 0.125 - 0.25 mg PO Q4-6H PRN 03/04/23 01/17/24 Abdominal Discomfort lorazepam 1 mg tablet 0.5 - 1 mg PO DAILY PRN Anxiety 03/04/23 01/17/24 oxcarbazepine 600 mg tablet 600 mg PO BID 03/04/23 01/17/24 Oxygen Home Use 04/16/23 12/23/23 prazosin 2 mg capsule 2 mg PO BEDTIME 04/16/23 01/17/24 baclofen 15 mg tablet 15 mg PO TID 01/10/24 01/17/24 calcium carbonate 600 mg-vitamin 1 tab PO DAILY 01/17/24 01/17/24 D3 5 mcg (200 unit) tablet lidocaine 4 % topical cream 1 appl topical DAILY PRN Pain 01/17/24 01/17/24 tiotropium 2.5 mcg-olodaterol 2.5 2 puff inhalation DAILY 01/17/24 01/17/24 mcg/actuation mist for inhalation (Stiolto Respimat) vitamin B12 0.5 mg-folic acid 1 mg 1 tab PO DAILY 01/18/24 01/18/24 tablet Previous Rx's ?Medication ?Instructions ?Recorded amlodipine 5 mg tablet 5 mg PO DAILY #90 tabs 12/16/23 aspirin 81 mg tablet,delayed 81 mg PO DAILY #90 tabs 12/16/23 release codeine 8 mg-guaifenesin 200 mg/5 5 ml PO Q6H PRN cough #473 mL 12/16/23 mL oral liquid nebulizer and compressor #1 ea 12/16/23 furosemide 20 mg tablet (Lasix) 20 mg PO DAILY #7 tabs 01/10/24 azithromycin 250 mg tablet 250 mg PO DAILY 4 months #120 tabs 01/18/24 prednisone 20 mg tablet 40 mg (2 x 20 mg) PO DAILY #8 tabs 01/18/24 fluticasone fur. 200 mcg-umeclid 1 inh inhalation DAILY 30 days #60 01/20/24 62.5 mcg-vilant 25 mcg ea inhalat.powder (Trelegy Ellipta) ipratropium 0.5 mg-albuterol 3 mg 3 ml inhalation RQ4H WHILE AWAKE 01/20/24 (2.5 mg base)/3 mL nebulization PRN sob 90 days #180 mL soln prednisone 10 mg tablet See Rx Instructions PO DAILY 9 01/20/24 days #18 tabs verapamil 120 mg tablet 120 mg PO BID #60 tabs 01/24/24 Allergies Allergy/AdvReac Type Severity Reaction Status Date / Time Iodinated Contrast Media Allergy Intermediate HIVES Verified 01/31/24 09:51 [IV CONTRAST] acetaminophen [From VICODIN] Allergy Unknown VOMITING Verified 01/31/24 09:51 hydrocodone [From VICODIN] Allergy Unknown VOMITING Verified 01/31/24 09:51 latex [LATEX] Allergy Unknown RASH Verified 01/31/24 09:51 oxycodone [From PERCOCET] Allergy Unknown VOMITING Verified 01/31/24 09:51 procaine [From Novocain] Allergy Unknown HIVES Verified 01/31/24 09:51 morphine [MORPHINE] AdvReac Unknown VOMITING Verified 01/31/24 09:51 Review of Systems 2 Review of Systems: All other systems are reviewed and are negative Constitutional: Reports as per HPI and Reports no additional constitutional complaints Eyes: Reports as per HPI and Reports no additional eye complaints Reports system reviewed and no additional complaints, except as documented Cardiovascular: Reports as per HPI and Reports no additional cardiovascular complaints Respiratory: Reports as per HPI and Reports no additional respiratory complaints Gastrointestinal: Reports as per HPI and Reports no additional gastrointestinal complaints Genitourinary: Reports no additional female genitourinary complaints Musculoskeletal: Reports no additional musculoskeletal complaints Skin/Breast: Reports system reviewed and no additional complaints, except as docu Psychiatric: Reports no additional psychiatric complaints Endocrine: Reports no additional endocrine complaints Hematologic/Lymphatic: Reports no additional hematologic/lymphatic complaints Allergic/Immunologic: Reports no additional allergic/immunologic complaints Reports system reviewed and no additional complaints, except as documented and Reports Abnormal speech present [facility] Past Medical History Medical History JUANITO (obstructive sleep apnea) Allergies Hypertension Elevated troponin COPD (chronic obstructive pulmonary disease) Chronic hypercapnic respiratory failure Trigeminal neuralgia Pulmonary nodules Mixed hyperlipidemia Peripheral neuropathy Tobacco use disorder Mood disorder Surgical History History of esophagogastroduodenoscopy (EGD) History of colonoscopy History of lumbar discectomy History of tubal ligation History of excision of mass History of shoulder surgery Social History Social History Household Members: Spouse Housing: Condominium Do you presently have visiting nurse or other home services: Yes (nursing - frequently) Alcohol intake: current Alcohol intake frequency: holidays/special occasions only Alcohol type: wine Comment: pt refuse bed alarm Patient Tobacco Use Status: Current everyday Tobacco user Tobacco use type: Cigarette Cigarette Packs Per Day: 1 Cigarettes Per Day: 15 Years Smoked: 40 Smoked in Last 30 Days: Yes e-Cigarette/Vaping Use: Currently Using Second Hand Smoke Exposure: Yes Use of substances other than those prescribed or required for medical reasons: No Substance Use Type: Marijuana Advance Directives: Yes Advance Directives on File: Yes Advance Directives Date on File: 03/09/23 service: No Physical Exam 2 Vital Signs: Vital Signs: Last Vital Signs Temp 97.6 F 01/31/24 12:00 Pulse 74 01/31/24 12:15 Resp 20 01/31/24 12:15 BP 140/78 H 01/31/24 12:00 Pulse Ox 86 L 01/31/24 12:00 O2 Del Method Room Air 01/31/24 12:00 O2 Flow Rate 1 01/31/24 11:04 Oxygen Flow Rate 2 01/31/24 09:47 BMI result Body Mass Index 35.0 Vital signs have been reviewed and appear to be correct. Blood pressure elevated. Heart rate normal. Respiratory rate normal. Temperature normal. Oxygen saturation normal. Appearance: Alert. Oriented X3. No acute distress. Head: Normal external exam. Normocephalic. Atraumatic. No [place] signs noted. No raccoon eyes noted Eyes: PERRLA. EOMI. Conjunctiva and sclera normal. Eyelids normal. ENT: TM's Normal. Pharynx normal. Uvula midline. Moist mucous membranes. No trismus noted. No drooling noted. No muffled voice noted. Neck: Normal inspection. Neck supple. FROM. No adenopathy. Thyroid Normal. No meningeal signs. No neck mass noted. CVS: Normal heart rate and rhythm. Heart sound normal. No murmurs noted. Pulses normal throughout. Respiratory: No respiratory distress. Painless inspiration. Decreased breathing sound bilaterally, diffuse expiratory wheezing with prolonged expiration. No accessory muscle usage noted or decreased air movement noted. Abdomen: Soft and nontender. Bowel sounds normal in all 4 quadrants. No distention noted. No organomegaly noted. No visible injury noted. Back: No CVA tenderness. Full range of motion noted. Skin: Skin warm and dry. Normal skin color. Normal skin turgor. No rashes/lesions/lacerations noted. Extremities: No lower extremity edema. Extremities exhibit normal range of motion. Extremities nontender. Neuro: Oriented X 3. Cranial nerve exam: II-XII are grossly intact No motor deficit. No sensory deficit. Reflexes normal. Course Reevaluation(s) Reevaluation #1: 59-year-old female with COPD exacerbation, start on bronchodilator, Solu-Medrol, magnesium, will admit the patient. Time: 14:06 Medications Administered Generic Name Dose Route Start Last Admin Trade Name Freq PRN Reason Stop Dose Admin Magnesium Sulfate 2 gm in 50 mls @ 25 mls/hr 01/31/24 12:10 01/31/24 12:25 Magnesium Sulfate/H2o IV 01/31/24 14:09 25 mls/hr ONCE ONE Administration Discontinued Medications Generic Name Dose Route Start Last Admin Trade Name Freq PRN Reason Stop Dose Admin Albuterol Sulfate 5 mg/ 0 mg 01/31/24 12:15 01/31/24 12:20 Albuterol/Ipratropium 3 ml INHALE 01/31/24 12:16 1 each ONCE ONE Administration Methylprednisolone Sodium Succinate 125 mg 01/31/24 12:10 01/31/24 12:25 Methylprednisolone Sod Succ 125 Mg/2 Ml Vial IVPUSH 01/31/24 12:11 125 mg ONCE ONE Administration Medical Decision Making Differential Diagnosis Differential Diagnoses: The differential diagnosis associated with the presentation includes (COPD exacerbation, pneumonia, pneumothorax, pleural effusion, electrolyte derangement, severe anemia, ACS, CHF.) Admission/Observation Consideration of admission/observation: Escalation of care including admission/observation considered Lab Data MDM Lab Attestation statement: I reviewed the patient's lab results. 01/31/24 12:17 01/31/24 12:49 Labs: Lab Results 01/31/24 01/31/24 01/31/24 Range/Units 12:17 12:49 12:51 WBC 12.9 H (4.8-10.8) X10*3/uL RBC 4.02 L (4.20-5.50) X10*6/uL Hgb 13.3 (12.0-16.0) g/dl Hct 40.7 (37.0-47.0) % MCV 101.2 H (80.0-98.0) fL MCH 33.1 H (27.0-33.0) pg MCHC 32.7 (31.0-35.0) g/dl RDW 17.1 H (11.0-16.0) % Plt Count 326 (160-400) X10*3/uL MPV 9.2 L (9.4-12.3) fL Immature Gran % (Auto) 0.5 H (0.0-0.4) % Neut % (Auto) 72.8 (45-73) % Lymph % (Auto) 14.5 L (20-40) % [place] % (Auto) 9.6 (2-11) % Eos % (Auto) 2.2 (0-4) % Baso % (Auto) 0.4 (0-2) % Lymph # (Auto) 1.9 (1.2-4.9) X10*3/uL [place] # (Auto) 1.2 (0.1-1.2) X10*3/uL Eos # (Auto) 0.3 (0.0-0.4) X10*3/uL Baso # (Auto) 0.1 (0.0-0.2) X10*3/uL Abs Immat Gran (auto) 0.07 H (0.00-0.03) X10*3/uL Absolute Neuts (auto) 9.4 H (2.0-8.3) x10*3/uL Absolute Nucleated RBC 0.000 (0.0-0.012) X10*3/uL Nucleated RBC % (auto) 0.0 (0.0-0.2) /100WBC VBG pH 7.40 (7.32-7.43) VBG pCO2 55 mmHg VBG pO2 43 mmHg VBG HCO3 34 H (22-26) mmol/L VBG O2 Saturation 71.0 % VBG Base Excess 8.1 mmol/L Sodium 143 (135-145) mmol/L Potassium 4.5 D (3.3-5.1) mmol/L Chloride 103 (96-108) mmol/L Carbon Dioxide 29 (22-29) mmol/L Anion Gap 16 (12-20) BUN 12 (9-16) mg/dL Creatinine 0.73 (0.5-1.4) mg/dL Estim Creat Clear Calc 76.3 Estimated GFR > 60 Random Glucose 120 H (60-115) mg/dL Calcium 9.7 (8.4-10.2) mg/dL Magnesium 2.4 (1.6-2.6) mg/dL Total Bilirubin 0.4 (0.0-1.0) mg/dL AST 12 (5-31) U/L ALT 18 (0-31) U/L Alkaline Phosphatase 80 (39-117) U/L Troponin I High Sens 11.8 (<3.5-17.0) ng/L B-Natriuretic Peptide 42 (<100) pg/mL Total Protein 6.3 L (6.5-8.0) g/dL Albumin 4.1 (3.5-5.0) g/dL Urine Color Urine Appearance Urine pH (5.0-9.0) Ur Specific [place] (1.005-1.025) Urine Protein (Neg-Trace) mg/dL Urine Glucose (UA) (Negative) mg/dL Urine Ketones (Negative) mg/dL Urine Blood (Negative) Urine Nitrite (Negative) Ur Leukocyte Esterase (Negative) Influenza Type A (PCR) NEGATIVE (Negative) Influenza Type B (PCR) NEGATIVE (Negative) RSV RNA Qual (PCR) NEGATIVE (Negative) SARS-CoV-2 RNA (RT-PCR) NEGATIVE (Negative) 01/31/24 Range/Units 13:19 WBC (4.8-10.8) X10*3/uL RBC (4.20-5.50) X10*6/uL Hgb (12.0-16.0) g/dl Hct (37.0-47.0) % MCV (80.0-98.0) fL MCH (27.0-33.0) pg MCHC (31.0-35.0) g/dl RDW (11.0-16.0) % Plt Count (160-400) X10*3/uL MPV (9.4-12.3) fL Immature Gran % (Auto) (0.0-0.4) % Neut % (Auto) (45-73) % Lymph % (Auto) (20-40) % [place] % (Auto) (2-11) % Eos % (Auto) (0-4) % Baso % (Auto) (0-2) % Lymph # (Auto) (1.2-4.9) X10*3/uL [place] # (Auto) (0.1-1.2) X10*3/uL Eos # (Auto) (0.0-0.4) X10*3/uL Baso # (Auto) (0.0-0.2) X10*3/uL Abs Immat Gran (auto) (0.00-0.03) X10*3/uL Absolute Neuts (auto) (2.0-8.3) x10*3/uL Absolute Nucleated RBC (0.0-0.012) X10*3/uL Nucleated RBC % (auto) (0.0-0.2) /100WBC VBG pH (7.32-7.43) VBG pCO2 mmHg VBG pO2 mmHg VBG HCO3 (22-26) mmol/L VBG O2 Saturation % VBG Base Excess mmol/L Sodium (135-145) mmol/L Potassium (3.3-5.1) mmol/L Chloride (96-108) mmol/L Carbon Dioxide (22-29) mmol/L Anion Gap (12-20) BUN (9-16) mg/dL Creatinine (0.5-1.4) mg/dL Estim Creat Clear Calc Estimated GFR Random Glucose (60-115) mg/dL Calcium (8.4-10.2) mg/dL Magnesium (1.6-2.6) mg/dL Total Bilirubin (0.0-1.0) mg/dL AST (5-31) U/L ALT (0-31) U/L Alkaline Phosphatase (39-117) U/L Troponin I High Sens (<3.5-17.0) ng/L B-Natriuretic Peptide (<100) pg/mL Total Protein (6.5-8.0) g/dL Albumin (3.5-5.0) g/dL Urine Color Yellow Urine Appearance Clear Urine pH 6.0 (5.0-9.0) Ur Specific [place] 1.015 (1.005-1.025) Urine Protein Negative (Neg-Trace) mg/dL Urine Glucose (UA) Negative (Negative) mg/dL Urine Ketones Negative (Negative) mg/dL Urine Blood Negative (Negative) Urine Nitrite Negative (Negative) Ur Leukocyte Esterase Negative (Negative) Influenza Type A (PCR) (Negative) Influenza Type B (PCR) (Negative) RSV RNA Qual (PCR) (Negative) SARS-CoV-2 RNA (RT-PCR) (Negative) Discharge Plan Discharge Clinical Impression: Acute exacerbation of chronic obstructive airways disease Patient Disposition: Admitted As Inpatient Prescriptions: No Action verapamil 120 mg tablet 120 mg PO BID Qty: 60 1RF baclofen 15 mg Tablet 15 mg PO TID furosemide [Lasix] 20 mg tablet 20 mg PO DAILY Qty: 7 0RF lidocaine 4 % Cream 1 appl TOPICAL DAILY PRN (Reason: Pain) calcium carbonate-vitamin D3 600 mg-5 mcg (200 unit) Tablet 1 tab PO DAILY Stiolto Respimat 2.5-2.5 mcg/actuation mist 2 puff INHALATION DAILY vitamin [id number] acid 0.5-1 mg Tablet 1 tab PO DAILY azithromycin 250 mg tablet 250 mg PO DAILY 120 Days Qty: 120 0RF prednisone 20 mg tablet 40 mg PO DAILY Qty: 8 0RF atorvastatin 80 mg tablet 80 mg PO BEDTIME hydrocodone-acetaminophen 5-325 mg tablet 1 tab PO DAILY PRN (Reason: Pain) jexfdmjzim-wiiksfzptsrxa-zsmm 50-325-40 mg tablet 1 tab PO DAILY PRN (Reason: Headache) hyoscyamine sulfate 0.125 mg tablet 0.125 - 0.25 mg PO Q4-6H PRN (Reason: Abdominal Discomfort) gabapentin 300 mg capsule 1,200 mg PO TID oxcarbazepine 600 mg tablet 600 mg PO BID lorazepam 1 mg tablet 0.5 - 1 mg PO DAILY PRN (Reason: Anxiety) duloxetine 60 mg capsule,delayed release(DR/EC) 60 mg PO BID amlodipine 5 mg Tablet 5 mg PO DAILY Qty: 90 0RF Protocol: Hold for SBP< HOLD for SBP < : 90 aspirin 81 mg Tablet,Delayed Release (Dr/Ec) 81 mg PO DAILY Qty: 90 0RF (DME) nebulizer and compressor Device See Rx Instructions .Route Qty: 1 0RF Rx Instructions: As directed codeine-guaifenesin 8-200 mg/5 mL liquid 5 ml PO Q6H PRN (Reason: cough) Qty: 473 0RF prednisone 10 mg tablet See Rx Instructions PO DAILY 9 Days Qty: 18 0RF Rx Instructions: PO daily; 3 tabs x 3 days, then 2 tabs daily x 3 days, then 1 tab x 3 days to complete. Trelegy Ellipta 200-62.5-25 mcg blister with device 1 inh inhalation DAILY 30 Days Qty: 60 12RF ipratropium-albuterol 0.5 mg-3 mg(2.5 mg base)/3 mL solution for nebulization 3 ml inhalation RQ4H WHILE AWAKE PRN (Reason: sob) 90 Days Qty: 180 0RF prazosin 2 mg capsule 2 mg PO BEDTIME (DME) Oxygen Home Use Kit See Rx Instructions .ROUTE Rx Instructions: As directed Print Language: Turkish
[2024-01-31] MEDS: Albuterol Sulfate 5 MG, Albuterol/Iprat 2.5/0.5MG 3 ML 3 ML INHALE (12:20)
[2024-01-31 12:23] LABS: MANUAL DIFF FLAG NO
[2024-01-31 12:25] LABS: Basophils Absolute Auto 0.1 X10*3/uL (0.0-0.2); Basophils Percent Auto 0.4 % (0-2); Eosinophils Absolute Auto 0.3 X10*3/uL (0.0-0.4); Eosinophils Percent Auto 2.2 % (0-4); Hematocrit 40.7 % (37.0-47.0); Hemoglobin 13.3 g/dl (12.0-16.0); Imm Gran Abs Auto 0.07 X10*3/uL (0.00-0.03); Imm Gran Pct Auto 0.5 % (0.0-0.4); Lymphocytes Absolute Auto 1.9 X10*3/uL (1.2-4.9); Lymphocytes Percent Auto 14.5 % (20-40); Mean Corpuscular HGB Conc 32.7 g/dl (31.0-35.0); Mean Corpuscular Hemoglobin 33.1 pg (27.0-33.0); Mean Corpuscular Volume 101.2 fL (80.0-98.0); Mean Platelet Volume 9.2 fL (9.4-12.3); Monocytes Absolute Auto 1.2 X10*3/uL (0.1-1.2); Monocytes Percent Auto 9.6 % (2-11); Neutrophils Absolute Auto 9.4 x10*3/uL (2.0-8.3); Neutrophils Percent Auto 72.8 % (45-73); Platelet Count 326 X10*3/uL (160-400); Red Blood Count 4.02 X10*6/uL (4.20-5.50); Red Cell Distribution Width 17.1 % (11.0-16.0); White Blood Count 12.9 X10*3/uL (4.8-10.8)
[2024-01-31] MEDS: Magnesium Sulfate/H2O 2 GM/50 ML PIGGYBACK IV (12:25)
[2024-01-31] MEDS: methylPREDNISolone Sod Succ 125 MG/2 ML VIAL IVPUSH (12:25)
[2024-01-31 12:44] LABS: B Type Natriuretic Peptide 42 pg/mL (<100)
[2024-01-31 12:57] LABS: Venous Blood Gas Refer to POC result
[2024-01-31 12:59] LABS: VBG Base Excess 8.1 mmol/L; VBG HCO3 34 mmol/L (22-26); VBG pCO2 55 mmHg; VBG pO2 43 mmHg
--- NOTE | 2024-01-31 13:06 | PC.NURSE ---
Addendum entered by Lashonda Veronica RN 01/31/24 13:07: confirmed with Dr. Lopez no lactic needed. Original Note: BC added to orders by provider, will draw.
[2024-01-31 13:09] LABS: Alanine Aminotransferase 18 U/L (0-31); Albumin Level 4.1 g/dL (3.5-5.0); Alkaline Phosphatase 80 U/L (39-117); Anion Gap 16 (12-20); Aspartate Amino Transferase 12 U/L (5-31); Bilirubin Total 0.4 mg/dL (0.0-1.0); Blood Urea Nitrogen 12 mg/dL (9-16); Calcium 9.7 mg/dL (8.4-10.2); Carbon Dioxide 29 mmol/L (22-29); Chloride 103 mmol/L (96-108); Creatinine Clr Calc Pharmacy 76.3; Estimated Glomerular Filt Rate > 60; Glucose Random 120 mg/dL (60-115); Magnesium 2.4 mg/dL (1.6-2.6); Potassium 4.5 mmol/L (3.3-5.1); Sodium 143 mmol/L (135-145); Total Protein 6.3 g/dL (6.5-8.0)
[2024-01-31 13:16] LABS: Troponin-I High Sensitivity 11.8 ng/L (<3.5-17.0)
[2024-01-31 13:19] LABS: Influenza A PCR NEGATIVE (Negative); Influenza B PCR NEGATIVE (Negative); Resp Syncy Virus RNA Qual PCR NEGATIVE (Negative); SARS COV2 PCR INHOUSE NEGATIVE (Negative)
[2024-01-31 13:33] LABS: Appearance Urine Clear; Color Urine Yellow; Glucose Urine UA Negative (Negative); Leukocyte Esterase Urine Negative (Negative); Nitrite Urine Negative (Negative); Specific Gravity - Urine 1.015 (1.005-1.025); Urine Blood Negative (Negative); Urine Ketones Negative (Negative); Urine Protein Negative (Neg-Trace)
--- NOTE | 2024-01-31 14:32 | P.HPHOSP_ITS ---
History of Present Illness Date of Service: 01/31/24 Chief Complaint: sob 59-year-old woman presented to the ER with complaints of worsening shortness of breath and hypoxia. Patient has a history of COPD and wears 1-2 L at home. She has had multiple hospitalizations over the last 6 months. She reported an increase in cough with clear sputum. She denied fever, chills, nausea, vomiting, diarrhea, recent travel, sick contacts, chest pain. In the ER, chest x-ray showed no acute cardiopulmonary disease with no consolidation or effusion. She was seen by her blueprint processor today and was sent to the ED. She was noted to be hypoxic with oxygen saturation of 80 7% on 2 L. She was given IV Solu- Medrol, IV magnesium and albuterol. She will be admitted for further management of acute COPD exacerbation. Review of Systems 2 Review of Systems: Denies any recent fever chills or decrease in appetite respiratory see HPI cardiovascular denies chest pain gastrointestinal denies any dysphagia abdominal pain nausea vomiting or diarrhea genitourinary denies any dysuria frequency or hematuria musculoskeletal denies any joint pain or swelling neuropsych denies any weakness or seizures all other systems reviewed are negative [facility] Medical History JUANITO (obstructive sleep apnea) Allergies Hypertension Elevated troponin COPD (chronic obstructive pulmonary disease) Chronic hypercapnic respiratory failure Trigeminal neuralgia Pulmonary nodules Mixed hyperlipidemia Peripheral neuropathy Tobacco use disorder Mood disorder Surgical History History of esophagogastroduodenoscopy (EGD) History of colonoscopy History of lumbar discectomy History of tubal ligation History of excision of mass History of shoulder surgery Social History Household Members: Spouse Housing: Condominium Do you presently have visiting nurse or other home services: Yes (nursing - frequently) Alcohol intake: current Alcohol intake frequency: holidays/special occasions only Alcohol type: wine Comment: pt refuse bed alarm Patient Tobacco Use Status: Current everyday Tobacco user Tobacco use type: Cigarette Cigarette Packs Per Day: 1 Cigarettes Per Day: 15 Years Smoked: 40 Smoked in Last 30 Days: Yes e-Cigarette/Vaping Use: Currently Using Second Hand Smoke Exposure: Yes Use of substances other than those prescribed or required for medical reasons: No Substance Use Type: Marijuana Advance Directives: Yes Advance Directives on File: Yes Advance Directives Date on File: 03/09/23 service: No Meds Allergies Allergy/AdvReac Type Severity Reaction Status Date / Time Iodinated Contrast Media Allergy Intermediate HIVES Verified 01/31/24 09:51 [IV CONTRAST] acetaminophen [From VICODIN] Allergy Unknown VOMITING Verified 01/31/24 09:51 hydrocodone [From VICODIN] Allergy Unknown VOMITING Verified 01/31/24 09:51 latex [LATEX] Allergy Unknown RASH Verified 01/31/24 09:51 oxycodone [From PERCOCET] Allergy Unknown VOMITING Verified 01/31/24 09:51 procaine [From Novocain] Allergy Unknown HIVES Verified 01/31/24 09:51 morphine [MORPHINE] AdvReac Unknown VOMITING Verified 01/31/24 09:51 Home Medications ?Medication ?Instructions ?Recorded ?Confirmed ?Last Taken ?Type atorvastatin 80 mg tablet 80 mg PO BEDTIME 03/04/23 01/31/24 01/30/24 History fkhgfsaomn-phekwnlqekxub-omfswboh 1 tab PO DAILY PRN Headache 03/04/23 01/31/24 1 Day Ago History 50 mg-325 mg-40 mg tablet ~01/16/24 duloxetine 60 mg capsule,delayed 60 mg PO BID 03/04/23 01/31/24 01/30/24 History release gabapentin 300 mg capsule 1,200 mg PO TID 03/04/23 01/31/24 01/30/24 History hydrocodone 5 mg-acetaminophen 325 1 tab PO BID PRN Pain 03/04/23 01/31/24 01/30/24 History mg tablet hyoscyamine sulfate 0.125 mg tablet 0.125 - 0.25 mg PO Q4-6H PRN 03/04/23 01/31/24 1 Day Ago History Abdominal Discomfort ~01/16/24 lorazepam 1 mg tablet 1 mg PO DAILY PRN Anxiety 03/04/23 01/31/24 1 Day Ago History ~01/16/24 oxcarbazepine 600 mg tablet 600 mg PO BID 03/04/23 01/31/24 01/30/24 History Oxygen Home Use 04/16/23 12/23/23 Unknown History prazosin 2 mg capsule 2 mg PO BEDTIME 04/16/23 01/31/24 01/30/24 History baclofen 15 mg tablet 15 mg PO TID 01/10/24 01/31/24 01/30/24 History lidocaine 4 % topical cream 1 appl topical DAILY PRN Pain 01/17/24 01/31/24 Unknown History tiotropium 2.5 mcg-olodaterol 2.5 2 puff inhalation DAILY 01/17/24 01/31/24 01/30/24 History mcg/actuation mist for inhalation (Stiolto Respimat) vitamin B12 0.5 mg-folic acid 1 mg 1 tab PO DAILY 01/18/24 01/31/24 01/30/24 History tablet albuterol sulfate 90 mcg/actuation 2 puff inhalation Q4H PRN 01/31/24 01/31/24 Unknown History aerosol inhaler Shortness Of Breath Or Wheezing Physical Exam 2 Vital Signs and Narrative: Vital Signs: Last Vital Signs Temp 97.6 F 01/31/24 12:00 Pulse 74 01/31/24 12:15 Resp 20 01/31/24 12:15 BP 140/78 H 01/31/24 12:00 Pulse Ox 86 L 01/31/24 12:00 O2 Del Method Room Air 01/31/24 12:00 O2 Flow Rate 1 01/31/24 11:04 Oxygen Flow Rate 2 01/31/24 09:47 BMI result Body Mass Index 35.0 Appearing in no acute distress head is normocephalic atraumatic eyes pupils are PERRLA sclera is anicteric mouth throat mucous membranes are intact and moist neck is supple no lymphadenopathy, no JVD noted lung sounds exp wheezing heart regular rate rhythm, clear S1, S2 positive bowel sounds, abdomen is soft, nontender neuro patient is alert x3, no focal deficits Results Labs 01/31/24 12:17 01/31/24 12:49 Labs: Laboratory Results - last 24 hr 01/31/24 01/31/24 01/31/24 12:17 12:49 12:51 MCV 101.2 H MCH 33.1 H MCHC 32.7 RDW 17.1 H Plt Count 326 MPV 9.2 L Immature Gran % (Auto) 0.5 H Neut % (Auto) 72.8 Lymph % (Auto) 14.5 L [place] % (Auto) 9.6 Eos % (Auto) 2.2 Baso % (Auto) 0.4 Lymph # (Auto) 1.9 [place] # (Auto) 1.2 Eos # (Auto) 0.3 Baso # (Auto) 0.1 Abs Immat Gran (auto) 0.07 H Absolute Neuts (auto) 9.4 H Absolute Nucleated RBC 0.000 Nucleated RBC % (auto) 0.0 VBG pH 7.40 VBG pCO2 55 VBG pO2 43 VBG HCO3 34 H VBG O2 Saturation 71.0 VBG Base Excess 8.1 Anion Gap 16 Estim Creat Clear Calc 76.3 Estimated GFR > 60 Random Glucose 120 H Calcium 9.7 Magnesium 2.4 Total Bilirubin 0.4 AST 12 ALT 18 Alkaline Phosphatase 80 Troponin I High Sens 11.8 B-Natriuretic Peptide 42 Total Protein 6.3 L Albumin 4.1 Urine Color Urine Appearance Urine pH Ur Specific [place] Urine Protein Urine Glucose (UA) Urine Ketones Urine Blood Urine Nitrite Ur Leukocyte Esterase Influenza Type A (PCR) NEGATIVE Influenza Type B (PCR) NEGATIVE RSV RNA Qual (PCR) NEGATIVE SARS-CoV-2 RNA (RT-PCR) NEGATIVE 01/31/24 13:19 MCV MCH MCHC RDW Plt Count MPV Immature Gran % (Auto) Neut % (Auto) Lymph % (Auto) [place] % (Auto) Eos % (Auto) Baso % (Auto) Lymph # (Auto) [place] # (Auto) Eos # (Auto) Baso # (Auto) Abs Immat Gran (auto) Absolute Neuts (auto) Absolute Nucleated RBC Nucleated RBC % (auto) VBG pH VBG pCO2 VBG pO2 VBG HCO3 VBG O2 Saturation VBG Base Excess Anion Gap Estim Creat Clear Calc Estimated GFR Random Glucose Calcium Magnesium Total Bilirubin AST ALT Alkaline Phosphatase Troponin I High Sens B-Natriuretic Peptide Total Protein Albumin Urine Color Yellow Urine Appearance Clear Urine pH 6.0 Ur Specific [place] 1.015 Urine Protein Negative Urine Glucose (UA) Negative Urine Ketones Negative Urine Blood Negative Urine Nitrite Negative Ur Leukocyte Esterase Negative Influenza Type A (PCR) Influenza Type B (PCR) RSV RNA Qual (PCR) SARS-CoV-2 RNA (RT-PCR) Imaging Radiologist's Impressions: Impressions Chest X-Ray 01/31/24 12:57 IMPRESSION: No acute cardiopulmonary disease. Stable appearance of the heart and lungs. Assessment and Plan (1) Acute exacerbation of chronic obstructive airways disease: Status: Acute Plan [age] year old woman admitted with acute on chronic respiratory failure secondary to COPD exacerbation Acute on chronic respiratory failure secondary to COPD exacerbation IV Solu-Medrol Scheduled DuoNebs Continue supplemental oxygen to keep oxygen saturation greater than 90% Hypertension Continue amlodipine Hyperlipidemia Continue aspirin and statin History of trigeminal neuralgia Continue baclofen, duloxetine, Tegretol, gabapentin (schedule should be 0600, 1400, 1999) pain medication as needed Mental health Continue home medications Obesity class 1. BMI 35.0 Discussed importance of weight management as this may be contributing to worsening of other comorbidities DVT prophylaxis with Lovenox Full code Quality Stroke Does the patient have a stroke diagnosis?: No VTE Prior VTE?: No VTE Risk Level:: Medical - moderate - high VTE Device Contraindication: Treatment Not Indicated VTE Drug Contraindication: N/A - Med Ordered
--- NOTE | 2024-01-31 15:00 | PHA.MEDREC ---
Pharmacy Consult ? Medication Reconciliation Pharmacy has completed the medication reconciliation. Spoke to patient to confirm med list. Patient states she is not on Calcium carbonate-vitamin D daily, she staes she hasn't started yet
--- NOTE | 2024-01-31 15:02 | PHA.MEDREC ---
Addendum entered by Gina Martel [facility] 01/31/24 15:13: reviewed Original Note: Pharmacy Consult ? Medication Reconciliation Pharmacy has completed the medication reconciliation. Spoke to patient to confirm med list. Patient states she hasn't started taking Calcium carb -Vitamin D daily and Trelegy 1 puff daily. She is still taking Stiolto Respimat 2 puff daily. Patient says she takes Hydrocodone-acetaminophen 5-325mg she thinks it's every 4 hours, however I called [facility] and the directions are 1 tab bid prn. So, left on med list what claim states. patient states she has 3 tablets left of prednisone 10 mg taper dose. 10 mg daily for 3 days.
[2024-01-31] MEDS: Gabapentin 400 MG CAPSULE 1200 MG PO ×2 (16:37→20:07)
[2024-01-31] MEDS: HYDROcodone Bit/Acetam 5/325 TABLET 1 TAB PO (16:37)
[2024-01-31] MEDS: Enoxaparin Sodium 40 MG/0.4 ML SYRINGE SUBCUT (16:38)
[2024-01-31] MEDS: 0.9 % Sodium Chloride Flush 3 ML SYRINGE IVFLUSH ×2 (16:40→22:43)
[2024-01-31] MEDS: LORazepam 1 MG TABLET PO (18:22)
[2024-01-31] MEDS: Albuterol Sulfate (0.083%) 2.5 MG/3 ML VIAL.NEB INHALE (19:09)
--- NOTE | 2024-01-31 19:41 | MHC.EDTECH ---
Patient ate 100% of dinner,and drank 240MLS
[2024-01-31] MEDS: Baclofen 10 MG TABLET 15 MG PO (20:06)
[2024-01-31] MEDS: Atorvastatin Calcium 80 MG TABLET PO (20:06)
[2024-01-31] MEDS: DULoxetine HCl 60 MG CAPSULE.DR PO (20:06)
[2024-01-31] MEDS: OXcarbazepine 300 MG TABLET 600 MG PO (20:06)
[2024-01-31] MEDS: Prazosin HCL 1 MG CAPSULE 2 MG PO (20:07)
--- NOTE | 2024-01-31 20:15 | PC.NURSE ---
Verapamil not stocked in pyxis, pharmacy called spoke to Nuha, they will send down.
[2024-01-31] MEDS: VerapamiL HCL 120 MG TABLET PO (21:41)
[2024-01-31] MEDS: methylPREDNISolone Sod Succ 40 MG/ML VIAL IVPUSH (22:38)
[2024-02-01] VITALS (14 sets, daily range): BP systolic 141–168; BP diastolic 67–81; PULSE 72–90; RESP 16–24; TEMP 36.2–36.3; O2SAT 92–95
[2024-02-01] MEDS: HYDROcodone Bit/Acetam 5/325 TABLET 1 TAB PO ×3 (00:51→18:10)
[2024-02-01] MEDS: Albuterol Sulfate (0.083%) 2.5 MG/3 ML VIAL.NEB INHALE ×5 (01:05→20:05)
[2024-02-01] MEDS: DULoxetine HCl 60 MG CAPSULE.DR PO ×2 (05:22→20:35)
[2024-02-01] MEDS: Furosemide 20 MG TABLET PO (05:22)
[2024-02-01] MEDS: VerapamiL HCL 120 MG TABLET PO ×2 (05:27→20:35)
[2024-02-01] MEDS: OXcarbazepine 300 MG TABLET 600 MG PO ×2 (05:28→20:42)
[2024-02-01] MEDS: Aspirin Enteric Coated 81 MG TABLET.DR PO (05:28)
[2024-02-01] MEDS: Baclofen 10 MG TABLET 15 MG PO ×3 (05:28→20:39)
[2024-02-01] MEDS: Gabapentin 400 MG CAPSULE 1200 MG PO ×3 (05:28→20:37)
[2024-02-01 06:33] LABS: Basophils Percent Auto 0.2 % (0-2); Hematocrit 40.9 % (37.0-47.0); Hemoglobin 13.2 g/dl (12.0-16.0); Imm Gran Abs Auto 0.09 X10*3/uL (0.00-0.03); Imm Gran Pct Auto 0.8 % (0.0-0.4); Lymphocytes Absolute Auto 0.8 X10*3/uL (1.2-4.9); Lymphocytes Percent Auto 6.9 % (20-40); MANUAL DIFF FLAG NO; Mean Corpuscular HGB Conc 32.3 g/dl (31.0-35.0); Mean Corpuscular Hemoglobin 32.9 pg (27.0-33.0); Monocytes Absolute Auto 0.4 X10*3/uL (0.1-1.2); Monocytes Percent Auto 3.5 % (2-11); Neutrophils Percent Auto 88.6 % (45-73); Platelet Count 364 X10*3/uL (160-400); Red Blood Count 4.01 X10*6/uL (4.20-5.50); Red Cell Distribution Width 16.6 % (11.0-16.0); White Blood Count 11.3 X10*3/uL (4.8-10.8)
[2024-02-01 06:57] LABS: Alanine Aminotransferase 16 U/L (0-31); Alkaline Phosphatase 78 U/L (39-117); Anion Gap 16 (12-20); Aspartate Amino Transferase 12 U/L (5-31); Bilirubin Total 0.2 mg/dL (0.0-1.0); Blood Urea Nitrogen 12 mg/dL (9-16); Calcium 9.7 mg/dL (8.4-10.2); Carbon Dioxide 28 mmol/L (22-29); Chloride 104 mmol/L (96-108); Creatinine Clr Calc Pharmacy 76.2; Estimated Glomerular Filt Rate > 60; Glucose Random 165 mg/dL (60-115); Potassium 4.5 mmol/L (3.3-5.1); Sodium 143 mmol/L (135-145); Total Protein 6.3 g/dL (6.5-8.0)
--- NOTE | 2024-02-01 08:42 | HO.PM.IMPN ---
Subjective Subjective Date of Service: 02/01/24 Review of Systems Follow up COPD feeling better dry cough Physical Exam Vital Signs: Vital Signs: Last Vital Signs Temp 97.4 F 02/01/24 07:28 Pulse 75 02/01/24 07:28 Resp 16 02/01/24 07:28 BP 141/67 H 02/01/24 07:28 Pulse Ox 92 02/01/24 07:28 O2 Del Method Nasal Cannula 02/01/24 07:28 O2 Flow Rate 2 02/01/24 07:28 Oxygen Flow Rate 2 01/31/24 09:47 BMI result Body Mass Index 36.6 Appearing in no acute distress lung sounds diminished heart regular rate rhythm, clear S1, S2 positive bowel sounds, abdomen is soft, nontender neuro patient is alert x3, no focal deficits Objective Data Active Medications Acetaminophen (Acetaminophen 325 Mg Tablet) 650 mg PO Q6H PRN PRN Reason: Pain, Mild (Pain Scale 1-3), fever or headache Acetaminophen/Butalbital/Caffeine (Butalb/Acetamin/Caff 50/325/40 Tablet) 1 tab PO DAILY PRN PRN Reason: Headache Hydrocodone Bitart/Acetaminophen (Hydrocodone Bit/Acetam 5/325 Tablet) 1 tab PO Q4H PRN PRN Reason: Pain, Severe (Pain Scale 7-10) Last Admin: 02/01/24 00:51 Dose: 1 tab Documented By: DESTINEE Albuterol Sulfate (Albuterol Sulfate (0.083%) 2.5 Mg/3 Ml Vial.Neb) 2.5 mg INHALE RQ4H WHILE AWAKE [facility] Last Admin: 02/01/24 05:53 Dose: 2.5 mg Documented By: MARKO Amlodipine Besylate (Amlodipine Besylate 5 Mg Tablet) 5 mg PO DAILY [facility]; Protocol Aspirin (Aspirin Enteric Coated 81 Mg Tablet.) 81 mg PO DAILY@0600 [facility] Last Admin: 02/01/24 05:28 Dose: 81 mg Documented By: MARIANA Atorvastatin Calcium (Atorvastatin Calcium 80 Mg Tablet) 80 mg PO 1999 [facility] Last Admin: 01/31/24 20:06 Dose: 80 mg Documented By: NORBERTO Baclofen (Baclofen 10 Mg Tablet) 15 mg PO TID@0600,1400,1999 [facility] Last Admin: 02/01/24 05:28 Dose: 15 mg Documented By: MARIANA Calcium Carbonate (Calcium Carbonate 750 Mg Tab.Chew) 750 mg PO Q4H PRN PRN Reason: Heartburn Duloxetine HCl (Duloxetine Hcl 60 Mg Capsule.Dr) 60 mg PO BID@ [facility] Last Admin: 02/01/24 05:22 Dose: 60 mg Documented By: MARIANA Enoxaparin Sodium (Enoxaparin Sodium 40 Mg/0.4 Ml Syringe) 40 mg SUBCUT Q24H [facility] Last Admin: 01/31/24 16:38 Dose: 40 mg Documented By: NORBERTO Furosemide (Furosemide 20 Mg Tablet) 20 mg PO DAILY@599 [facility]; Protocol Last Admin: 02/01/24 05:22 Dose: 20 mg Documented By: MARIANA Gabapentin (Gabapentin 400 Mg Capsule) 1,200 mg PO TID@599,1399,1999 [facility] Last Admin: 02/01/24 05:28 Dose: 1,200 mg Documented By: MARIANA Lorazepam (Lorazepam 1 Mg Tablet) 1 mg PO DAILY PRN PRN Reason: Anxiety Last Admin: 01/31/24 18:22 Dose: 1 mg Documented By: NORBERTO Magnesium Hydroxide (Milk Of Magnesia 30 Ml Oral.Susp) 30 ml PO DAILY PRN PRN Reason: Constipation Melatonin (Melatonin 3 Mg Tablet) 6 mg PO BEDTIME PRN PRN Reason: Insomnia Methylprednisolone Sodium Succinate (Methylprednisolone Sod Succ 40 Mg/Ml Vial) 40 mg IVPUSH Q12H [facility] Last Admin: 01/31/24 22:38 Dose: 40 mg Documented By: DESTINEE Oxcarbazepine (Oxcarbazepine 300 Mg Tablet) 600 mg PO BID@ [facility] Last Admin: 02/01/24 05:28 Dose: 600 mg Documented By: MARIANA Prazosin HCl (Prazosin Hcl 1 Mg Capsule) 2 mg PO DAILY@1999 [facility]; Protocol Last Admin: 01/31/24 20:07 Dose: 2 mg Documented By: NORBERTO Sodium Chloride (0.9 % Sodium Chloride Flush 3 Ml Syringe) [facility] Last Admin: 01/31/24 22:43 Dose: 3 ml Documented By: DESTINEE Verapamil HCl (Verapamil Hcl 120 Mg Tablet) 120 mg PO BID@ [facility]; Protocol Last Admin: 02/01/24 05:27 Dose: 120 mg Documented By: MARIANA Labs 02/01/24 05:21 02/01/24 05:21 Labs: Laboratory Results - last 24 hr 01/31/24 01/31/24 01/31/24 12:17 12:49 12:51 MCV 101.2 H MCH 33.1 H MCHC 32.7 RDW 17.1 H Plt Count 326 MPV 9.2 L Immature Gran % (Auto) 0.5 H Neut % (Auto) 72.8 Lymph % (Auto) 14.5 L [place] % (Auto) 9.6 Eos % (Auto) 2.2 Baso % (Auto) 0.4 Lymph # (Auto) 1.9 [place] # (Auto) 1.2 Eos # (Auto) 0.3 Baso # (Auto) 0.1 Abs Immat Gran (auto) 0.07 H Absolute Neuts (auto) 9.4 H Absolute Nucleated RBC 0.000 Nucleated RBC % (auto) 0.0 VBG pH 7.40 VBG pCO2 55 VBG pO2 43 VBG HCO3 34 H VBG O2 Saturation 71.0 VBG Base Excess 8.1 Anion Gap 16 Estim Creat Clear Calc 76.3 Estimated GFR > 60 Random Glucose 120 H Calcium 9.7 Magnesium 2.4 Total Bilirubin 0.4 AST 12 ALT 18 Alkaline Phosphatase 80 Troponin I High Sens 11.8 B-Natriuretic Peptide 42 Total Protein 6.3 L Albumin 4.1 Urine Color Urine Appearance Urine pH Ur Specific [place] Urine Protein Urine Glucose (UA) Urine Ketones Urine Blood Urine Nitrite Ur Leukocyte Esterase Influenza Type A (PCR) NEGATIVE Influenza Type B (PCR) NEGATIVE RSV RNA Qual (PCR) NEGATIVE SARS-CoV-2 RNA (RT-PCR) NEGATIVE 01/31/24 02/01/24 13:19 05:21 MCV 102.0 H MCH 32.9 MCHC 32.3 RDW 16.6 H Plt Count 364 MPV 9.0 L Immature Gran % (Auto) 0.8 H Neut % (Auto) 88.6 H Lymph % (Auto) 6.9 L [place] % (Auto) 3.5 Eos % (Auto) 0.0 Baso % (Auto) 0.2 Lymph # (Auto) 0.8 L [place] # (Auto) 0.4 Eos # (Auto) 0.0 Baso # (Auto) 0.0 Abs Immat Gran (auto) 0.09 H Absolute Neuts (auto) 10.0 H Absolute Nucleated RBC 0.000 Nucleated RBC % (auto) 0.0 VBG pH VBG pCO2 VBG pO2 VBG HCO3 VBG O2 Saturation VBG Base Excess Anion Gap 16 Estim Creat Clear Calc 76.2 Estimated GFR > 60 Random Glucose 165 H Calcium 9.7 Magnesium Total Bilirubin 0.2 AST 12 ALT 16 Alkaline Phosphatase 78 Troponin I High Sens B-Natriuretic Peptide Total Protein 6.3 L Albumin 4.0 Urine Color Yellow Urine Appearance Clear Urine pH 6.0 Ur Specific [place] 1.015 Urine Protein Negative Urine Glucose (UA) Negative Urine Ketones Negative Urine Blood Negative Urine Nitrite Negative Ur Leukocyte Esterase Negative Influenza Type A (PCR) Influenza Type B (PCR) RSV RNA Qual (PCR) SARS-CoV-2 RNA (RT-PCR) Assessment and Plan (1) Acute exacerbation of chronic obstructive airways disease: Status: Acute Plan 59 year old woman admitted with acute on chronic respiratory failure secondary to COPD exacerbation Acute on chronic respiratory failure secondary to COPD exacerbation continue IV Solu-Medrol and scheduled DuoNebs Continue supplemental oxygen to keep oxygen saturation greater than 90% Pulmonary consultation pending mucinex for dry cough Leukocytosis mildly elevated from steroids likely Elevated BS likely from steroids add A1C Hypertension stable BP Continue amlodipine Hyperlipidemia Continue aspirin and statin History of trigeminal neuralgia Continue baclofen, duloxetine, Tegretol, gabapentin (schedule should be 0600, 1400, 2000) pain medication as needed Mental health Continue home medications Obesity class 1. BMI 36.6 Discussed importance of weight management as this may be contributing to worsening of other comorbidities DVT prophylaxis with compression, declined sc injections Attending Dr. Mehta Full code Quality Stroke Does the patient have a stroke diagnosis?: No VTE Prior VTE?: No VTE Risk Level:: Medical - moderate - high VTE Device Contraindication: Treatment Not Indicated VTE Drug Contraindication: N/A - Med Ordered
[2024-02-01 09:13] LABS: Estimated Average Glucose 114 mg/dL; Hemoglobin A1c % 5.6 % (<6.0)
[2024-02-01] MEDS: amLODIPine Besylate 5 MG TABLET PO (09:49)
--- NOTE | 2024-02-01 11:10 | MHC.CM.PN ---
PT LIVES ALONE HAS HOME 02 AND IS ACTIVE WITH [facility] PT WILL NEEED [facility] TRANSPORT HOME SHE HAS HER PORTABLE 02 WITH HER WHICH NEEDS TO BE FILLED SO SHE CAN GO IN [facility] VAN WHEN DCD
[2024-02-01] MEDS: methylPREDNISolone Sod Succ 40 MG/ML VIAL IVPUSH ×2 (11:39→22:23)
[2024-02-01] MEDS: 0.9 % Sodium Chloride Flush 3 ML SYRINGE IVFLUSH ×2 (11:39→22:23)
[2024-02-01] MEDS: guaiFENesin LA 600 MG TAB.ER.12H PO ×2 (11:39→20:34)
--- NOTE | 2024-02-01 15:53 | PM.CNPUL ---
History of Present Illness History of Present Illness Consult date: 02/01/24 Chief complaint: COPD, hypoxia Narrative: 59-year-old lady with underlying history of COPD on 2 L of supplemental oxygen, JUANITO, followed by Dr. Henriquez admitted on 01/31/2024 with COPD exacerbation in treated with IV glucocorticoids and nebulized bronchodilators, now with significant improvement. Review of Systems Constitutional: Constitutional: Denies daytime sleepiness, Denies excessive sweating, Denies fatigue, Denies fever(s), Denies lethargy, Denies malaise, Denies night sweats, Denies snoring and Denies weight loss Eyes: Eyes: Denies blurry vision and Denies itchy eyes ENT: Denies nasal congestion, Denies post nasal drip, Denies sinus pain, Denies sinus pressure and Denies other ( Thrush) Cardiovascular: Cardiovascular: Denies chest pain, Denies pedal edema, Denies dyspnea, Denies orthopnea and Denies paroxysmal nocturnal dyspnea Respiratory: Respiratory: Denies cough, Denies hemoptysis, Denies excessive phlegm production, Denies dyspnea, Denies snoring and Denies wheezing Gastrointestinal: Gastrointestinal: Denies abdominal pain and Denies heartburn Musculoskeletal: Musculoskeletal: Denies myalgias, Denies arthralgias and Denies joint swelling Integumentary/Breasts: Skin/Breast: Denies rash Neurologic: Denies memory loss and Denies seizure-like activity Psychiatric: Psychiatric: Denies abnormal sleep pattern, Denies anxiety and Denies memory loss Endocrine: Endocrine: Denies excessive sweating, Denies fatigue and Denies heat intolerance Hematologic/Lymphatic: Hematologic/Lymphatic: Denies easy bruising Allergic/Immunologic: Allergic/Immunologic: Denies itchy eyes, Denies seasonal rhinorrhea and Denies wheezing PMFSH Past Medical History Medical History JUANITO (obstructive sleep apnea) Allergies Hypertension Elevated troponin COPD (chronic obstructive pulmonary disease) Chronic hypercapnic respiratory failure Trigeminal neuralgia Pulmonary nodules Mixed hyperlipidemia Peripheral neuropathy Tobacco use disorder Mood disorder Surgical History Surgical History History of esophagogastroduodenoscopy (EGD) History of colonoscopy History of lumbar discectomy History of tubal ligation History of excision of mass History of shoulder surgery Social History Social History Household Members: Spouse Housing: Condominium Do you presently have visiting nurse or other home services: Yes Alcohol intake: current Alcohol intake frequency: holidays/special occasions only Alcohol type: wine Comment: pt refuse bed alarm Patient Tobacco Use Status: Current everyday Tobacco user Tobacco use type: Cigarette Cigarette Packs Per Day: 1 Cigarettes Per Day: 20.0 Years Smoked: 40 e-Cigarette/Vaping Use: Never Used Second Hand Smoke Exposure: No Substance Use Type: Marijuana Advance Directives Date on File: 03/09/23 service: No Meds Allergies Allergy/AdvReac Type Severity Reaction Status Date / Time Iodinated Contrast Media Allergy Intermediate HIVES Verified 01/31/24 09:51 [IV CONTRAST] acetaminophen [From VICODIN] Allergy Unknown VOMITING Verified 01/31/24 09:51 hydrocodone [From VICODIN] Allergy Unknown VOMITING Verified 01/31/24 09:51 latex [LATEX] Allergy Unknown RASH Verified 01/31/24 09:51 oxycodone [From PERCOCET] Allergy Unknown VOMITING Verified 01/31/24 09:51 procaine [From Novocain] Allergy Unknown HIVES Verified 01/31/24 09:51 morphine [MORPHINE] AdvReac Unknown VOMITING Verified 01/31/24 09:51 Active Medications: Current Medications Acetaminophen (Acetaminophen 325 Mg Tablet) 650 mg PO Q6H PRN PRN Reason: Pain, Mild (Pain Scale 1-3), fever or headache Acetaminophen/Butalbital/Caffeine (Butalb/Acetamin/Caff 50/325/40 Tablet) 1 tab PO DAILY PRN PRN Reason: Headache Hydrocodone Bitart/Acetaminophen (Hydrocodone Bit/Acetam 5/325 Tablet) 1 tab PO Q4H PRN PRN Reason: Pain, Severe (Pain Scale 7-10) Last Admin: 02/01/24 12:47 Dose: 1 tab Albuterol Sulfate (Albuterol Sulfate (0.083%) 2.5 Mg/3 Ml Vial.Neb) 2.5 mg INHALE RQ4H WHILE AWAKE [facility] Last Admin: 02/01/24 14:43 Dose: 2.5 mg Amlodipine Besylate (Amlodipine Besylate 5 Mg Tablet) 5 mg PO DAILY [facility]; Protocol Last Admin: 02/01/24 09:49 Dose: 5 mg Aspirin (Aspirin Enteric Coated 81 Mg Tablet.) 81 mg PO DAILY@599 [facility] Last Admin: 02/01/24 05:28 Dose: 81 mg Atorvastatin Calcium (Atorvastatin Calcium 80 Mg Tablet) 80 mg PO 1999 [facility] Last Admin: 01/31/24 20:06 Dose: 80 mg Baclofen (Baclofen 10 Mg Tablet) 15 mg PO TID@599, [facility] Last Admin: 02/01/24 13:07 Dose: 15 mg Calcium Carbonate (Calcium Carbonate 750 Mg Tab.Chew) 750 mg PO Q4H PRN PRN Reason: Heartburn Duloxetine HCl (Duloxetine Hcl 60 Mg Capsule.) 60 mg PO BID@ [facility] Last Admin: 02/01/24 05:22 Dose: 60 mg Furosemide (Furosemide 20 Mg Tablet) 20 mg PO DAILY@599 [facility]; Protocol Last Admin: 02/01/24 05:22 Dose: 20 mg Gabapentin (Gabapentin 400 Mg Capsule) 1,200 mg PO TID@599, [facility] Last Admin: 02/01/24 13:07 Dose: 1,200 mg Guaifenesin (Guaifenesin La 600 Mg Tab.Er.12h) 600 mg PO BID [facility] Last Admin: 02/01/24 11:39 Dose: 600 mg Lorazepam (Lorazepam 1 Mg Tablet) 1 mg PO DAILY PRN PRN Reason: Anxiety Last Admin: 01/31/24 18:22 Dose: 1 mg Magnesium Hydroxide (Milk Of Magnesia 30 Ml Oral.Susp) 30 ml PO DAILY PRN PRN Reason: Constipation Melatonin (Melatonin 3 Mg Tablet) 6 mg PO BEDTIME PRN PRN Reason: Insomnia Methylprednisolone Sodium Succinate (Methylprednisolone Sod Succ 40 Mg/Ml Vial) 40 mg IVPUSH Q12H [facility] Last Admin: 02/01/24 11:39 Dose: 40 mg Oxcarbazepine (Oxcarbazepine 300 Mg Tablet) 600 mg PO BID@ [facility] Last Admin: 02/01/24 05:28 Dose: 600 mg Prazosin HCl (Prazosin Hcl 1 Mg Capsule) 2 mg PO DAILY@1999 [facility]; Protocol Last Admin: 01/31/24 20:07 Dose: 2 mg Sodium Chloride (0.9 % Sodium Chloride Flush 3 Ml Syringe) 3 ml IVFLUSH QSHIFT [facility] Last Admin: 02/01/24 11:39 Dose: 3 ml Tiotropium [place] (Tiotropium [place] 2.5 Mcg 1 Puff/2.5 Mcg Mist.Inhal) 1 puff INHALE RDAILY [facility] Verapamil HCl (Verapamil Hcl 120 Mg Tablet) 120 mg PO BID@0600,1999 [facility]; Protocol Last Admin: 02/01/24 05:27 Dose: 120 mg Home Medications ?Medication ?Instructions ?Recorded ?Confirmed ?Last Taken ?Type atorvastatin 80 mg tablet 80 mg PO BEDTIME 03/04/23 01/31/24 01/30/24 History [id number]-icyoeara 1 tab PO DAILY PRN Headache 03/04/23 01/31/24 1 Day Ago History 50 mg-325 mg-40 mg tablet ~01/16/24 duloxetine 60 mg capsule,delayed 60 mg PO BID 03/04/23 01/31/24 01/30/24 History release gabapentin 300 mg capsule 1,200 mg PO TID 03/04/23 01/31/24 01/30/24 History hydrocodone 5 mg-acetaminophen 325 1 tab PO BID PRN Pain 03/04/23 01/31/24 01/30/24 History mg tablet hyoscyamine sulfate 0.125 mg tablet 0.125 - 0.25 mg PO Q4-6H PRN 03/04/23 01/31/24 1 Day Ago History Abdominal Discomfort ~01/16/24 lorazepam 1 mg tablet 1 mg PO DAILY PRN Anxiety 03/04/23 01/31/24 1 Day Ago History ~01/16/24 oxcarbazepine 600 mg tablet 600 mg PO BID 03/04/23 01/31/24 01/30/24 History Oxygen Home Use 04/16/23 12/23/23 Unknown History prazosin 2 mg capsule 2 mg PO BEDTIME 04/16/23 01/31/24 01/30/24 History baclofen 15 mg tablet 15 mg PO TID 01/10/24 01/31/24 01/30/24 History lidocaine 4 % topical cream 1 appl topical DAILY PRN Pain 01/17/24 01/31/24 Unknown History tiotropium 2.5 mcg-olodaterol 2.5 2 puff inhalation DAILY 01/17/24 01/31/24 01/30/24 History mcg/actuation mist for inhalation (Stiolto Respimat) vitamin B12 0.5 mg-folic acid 1 mg 1 tab PO DAILY 01/18/24 01/31/24 01/30/24 History tablet albuterol sulfate 90 mcg/actuation 2 puff inhalation Q4H PRN 01/31/24 01/31/24 Unknown History aerosol inhaler Shortness Of Breath Or Wheezing Physical Exam Vital Signs: Vital Signs: Last Vital Signs Temp 97.1 F 02/01/24 15:45 Pulse 90 02/01/24 15:45 Resp 18 02/01/24 15:45 BP 166/77 H 02/01/24 15:45 Pulse Ox 93 02/01/24 15:45 O2 Del Method Room Air 02/01/24 15:45 O2 Flow Rate 2 02/01/24 07:28 Oxygen Flow Rate 2 01/31/24 09:47 BMI result Body Mass Index 36.6 Const: General: no acute distress and alert Nutritional Appearance: not obese Orientation/consciousness: Other orientation findings ( oriented) HEENT: Head: Yes atraumatic Eyes: General: appearance normal, both eyes and all related structures Sclerae: sclerae normal EOM: EOMs intact bilaterally Neck: Neck: Yes supple Lymphatic: no lymphadenopathy noted Resp: Effort & Inspection: normal respiratory effort and no use of accessory muscles Auscultation: clear to auscultation bilaterally Cardio: Rate: regular rate Rhythm: regular rhythm Heart sounds: no gallops, no murmurs and no rubs Skin: General skin exam: other ( warm) Extrem: General: No clubbing, No cyanosis and No edema Results Laboratory Findings 02/01/24 05:21 02/01/24 05:21 Abnormal lab findings: Abnormal Labs 01/31/24 01/31/24 01/31/24 12:17 12:49 12:51 WBC 12.9 H RBC 4.02 L MCV 101.2 H MCH 33.1 H RDW 17.1 H MPV 9.2 L Immature Gran % (Auto) 0.5 H Neut % (Auto) Lymph % (Auto) 14.5 L Lymph # (Auto) Abs Immat Gran (auto) 0.07 H Absolute Neuts (auto) 9.4 H VBG HCO3 34 H Random Glucose 120 H Total Protein 6.3 L 02/01/24 05:21 WBC 11.3 H RBC 4.01 L MCV 102.0 H MCH RDW 16.6 H MPV 9.0 L Immature Gran % (Auto) 0.8 H Neut % (Auto) 88.6 H Lymph % (Auto) 6.9 L Lymph # (Auto) 0.8 L Abs Immat Gran (auto) 0.09 H Absolute Neuts (auto) 10.0 H VBG HCO3 Random Glucose 165 H Total Protein 6.3 L Assessment and Plan (1) JUANITO (obstructive sleep apnea): Status: Acute (2) COPD (chronic obstructive pulmonary disease): Qualifiers: COPD type: chronic bronchitis Chronic bronchitis type: simple Qualified Code(s): J41.0 - Simple chronic bronchitis Status: Acute Plan Impression: 59-year-old lady admitted with COPD exacerbation and treated empirically with systemic glucocorticoids and nebulized bronchodilators, now with significant improvement, appears to be at baseline. Recommendations: Agree with current regimen of systemic glucocorticoids, consider rapid taper. Continue nebulized bronchodilators. Continue supplemental oxygen to maintain O2 saturation of 88-92%. Procedures Date of Service Date of Service: 02/01/24
--- NOTE | 2024-02-01 18:00 | PC.NURSE ---
Patient was assessed as high fall risk but is refusing bed alarm. Patient was educated on the safety and hospital policy and procedures on fall risks. Patient still refusing alarms.
[2024-02-01] MEDS: Prazosin HCL 1 MG CAPSULE 2 MG PO (20:34)
[2024-02-01] MEDS: Atorvastatin Calcium 80 MG TABLET PO (20:40)
[2024-02-01] MEDS: Calcium Carbonate 750 MG TAB.CHEW PO (21:11)
[2024-02-01] MEDS: Lidocaine 4 % Patch ADH..PATCH 1 PATCH TRANSDERMA (21:41)
[2024-02-02] VITALS (8 sets, daily range): BP systolic 158–183; BP diastolic 69–86; PULSE 76–84; RESP 18–20; TEMP 36.1–36.5; O2SAT 89–94
[2024-02-02] MEDS: Gabapentin 400 MG CAPSULE 1200 MG PO (05:47)
[2024-02-02] MEDS: Baclofen 10 MG TABLET 15 MG PO (05:50)
[2024-02-02] MEDS: VerapamiL HCL 120 MG TABLET PO (05:51)
[2024-02-02] MEDS: Aspirin Enteric Coated 81 MG TABLET.DR PO (05:52)
[2024-02-02] MEDS: DULoxetine HCl 60 MG CAPSULE.DR PO (05:52)
[2024-02-02] MEDS: OXcarbazepine 300 MG TABLET 600 MG PO (05:52)
[2024-02-02] MEDS: Furosemide 20 MG TABLET PO (06:01)
[2024-02-02] MEDS: LORazepam 0.5 MG TABLET PO (06:06)
[2024-02-02] MEDS: Albuterol Sulfate (0.083%) 2.5 MG/3 ML VIAL.NEB INHALE ×2 (06:14→11:13)
--- NOTE | 2024-02-02 06:36 | PC.NURSE ---
Assumed care of patient since 1844. Patient remains AAOX4 with c/o of moderate RUQ pain exacerbated with coughing and deep breath. Lidocaine patch applied to affected area with good relief. Episode of dyspnea with expiratory wheezes noted after walking to bathroom and returning to bed. BP elevated at that time :183/86, P=84. RT notified. Nebulizer treatment given with good relief. Lorazepam 0.5 mg po given for anxiety. O2 @ 1l/mn. We'll continue to monitor.
[2024-02-02] MEDS: Tiotropium Bromide 2.5 mcg 1 PUFF/2.5 MCG MIST.INHAL INHALE (07:59)
[2024-02-02] MEDS: amLODIPine Besylate 5 MG TABLET PO (08:12)
[2024-02-02] MEDS: guaiFENesin LA 600 MG TAB.ER.12H PO (08:12)
[2024-02-02] MEDS: 0.9 % Sodium Chloride Flush 3 ML SYRINGE IVFLUSH (08:14)
[2024-02-02] MEDS: HYDROcodone Bit/Acetam 5/325 TABLET 1 TAB PO (09:08)
[2024-02-02] MEDS: methylPREDNISolone Sod Succ 40 MG/ML VIAL IVPUSH (10:29)
--- NOTE | 2024-02-02 11:04 | PM.DS ---
DS: Providers Provider Date of Service: 02/02/24 Date of admission: 01/31/24 15:02 Date of discharge: 02/02/24 Primary care physician: ESTEBAN Christianson Consults: 01/31/24 15:48 Consult to Pulmonology Routine Consulting Provider: [facility] Reason for consultation: resp failure DS: Diagnosis Discharge Diagnosis (1) JUANITO (obstructive sleep apnea): Status: Acute (2) COPD (chronic obstructive pulmonary disease): Status: Acute DS: Summary Hospital Course Hospital Course: 59-year-old woman presented to the ER with complaints of worsening shortness of breath and hypoxia. Patient has a history of COPD and wears 1-2 L at home. She has had multiple hospitalizations over the last 6 months. She reported an increase in cough with clear sputum. She denied fever, chills, nausea, vomiting, diarrhea, recent travel, sick contacts, chest pain. In the ER, chest x-ray showed no acute cardiopulmonary disease with no consolidation or effusion. She was seen by her bunk house worker today and was sent to the ED. She was noted to be hypoxic with oxygen saturation of 80 7% on 2 L. She was given IV Solu-Medrol, IV magnesium and albuterol. Hospital Course Patient was admitted to the general medical floor maintain on her home O2 levels and given pulse dose Solu-Medrol and aggressive updraft treatments. Over the next 48 hours she returned to baseline is now requesting discharge. Lung exam has improved since admission. At this time she is medically acceptable for discharge to home to follow up with the PCP and bunk house worker as scheduled Time Attestation Discharge Coordination Time (in mins): 35 Quality: Safe Use of Opioids Does Pt have an Active Cancer Diagnosis on the Problem List?: No Quality: Stroke Does the patient have a stroke diagnosis?: No Physical Exam Vital Signs: Vital Signs: Last Vital Signs Temp 97.7 F 02/02/24 08:22 Pulse 76 02/02/24 08:22 Resp 18 02/02/24 08:22 BP 166/78 H 02/02/24 08:22 Pulse Ox 89 L 02/02/24 08:22 O2 Del Method Room Air 02/02/24 08:22 O2 Flow Rate 1 02/02/24 06:37 Oxygen Flow Rate 2 01/31/24 09:47 BMI result Body Mass Index 36.6 Const: Other: Awake alert able to speak in full sentences Resp: Other: Diminished with scattered coarse rhonchi. Minimal expiratory wheezes at bases Cardio: Other: No S4; positive S1-S2; no S3 murmurs rubs or gallops GI: Other: Soft nontender nondistended normoactive bowel sounds Neuro: Other: Cranial nerves 2-12 grossly intact as tested. Motor is 5/5 all extremities. Sensation is intact. Gait appropriate Extrem: Other: No edema bilaterally DS: Data Data Completed and Pending Completed studies during hospitalization [Text1]: Procedures Assistance with Respiratory Ventilation, Less than 24 Consecutive Hours, Continuous Positive Airway Pressure (12/10/23) Labs on day of discharge: Preliminary micro results at discharge 01/31/24 13:54 Blood Culture - Preliminary Blood - Venous No growth after 24 hours. 01/31/24 13:54 Blood Culture - Preliminary Blood - Venous No growth after 24 hours. Discharge Plan Discharge Anticipated Discharge Date/Time: 02/02/24 10:59 Patient Disposition: Home, Self-Care Discharge Diagnosis: Acute exacerbation of COPD Referrals: Sirisha Huertas FNP- [Primary Care Provider] - 1 Week Discharge Medications: New prednisone 20 mg tablet See Rx Instructions .Route .COMPLEX Qty: 18 0RF Rx Instructions: 20 mg orally; 3 tabs daily for 3 days, 2 tabs daily for 3 days, 1 tab daily for 3 days Continued verapamil 120 mg tablet 120 mg PO BID Qty: 60 1RF baclofen 15 mg Tablet 15 mg PO TID furosemide [Lasix] 20 mg tablet 20 mg PO DAILY Qty: 7 0RF lidocaine 4 % Cream 1 appl TOPICAL DAILY PRN (Reason: Pain) Stiolto Respimat 2.5-2.5 mcg/actuation mist 2 puff INHALATION DAILY vitamin [id number] acid 0.5-1 mg Tablet 1 tab PO DAILY atorvastatin 80 mg tablet 80 mg PO BEDTIME hydrocodone-acetaminophen 5-325 mg tablet 1 tab PO BID PRN (Reason: Pain) ycynukvoti-mwomfgveuqlfc-ozxe 50-325-40 mg tablet 1 tab PO DAILY PRN (Reason: Headache) hyoscyamine sulfate 0.125 mg tablet 0.125 - 0.25 mg PO Q4-6H PRN (Reason: Abdominal Discomfort) gabapentin 300 mg capsule 1,200 mg PO TID oxcarbazepine 600 mg tablet 600 mg PO BID lorazepam 1 mg tablet 1 mg PO DAILY PRN (Reason: Anxiety) duloxetine 60 mg capsule,delayed release(DR/EC) 60 mg PO BID amlodipine 5 mg Tablet 5 mg PO DAILY Qty: 90 0RF Protocol: Hold for SBP< HOLD for SBP < : 90 aspirin 81 mg Tablet,Delayed Release (Dr/Ec) 81 mg PO DAILY Qty: 90 0RF (DME) nebulizer and compressor Device See Rx Instructions .Route Qty: 1 0RF Rx Instructions: As directed albuterol sulfate 90 mcg/actuation HFA aerosol inhaler 2 puff inhalation Q4H PRN (Reason: Shortness Of Breath Or Wheezing) ipratropium-albuterol 0.5 mg-3 mg(2.5 mg base)/3 mL solution for nebulization 3 ml inhalation RQ4H WHILE AWAKE PRN (Reason: sob) 90 Days Qty: 180 0RF prazosin 2 mg capsule 2 mg PO BEDTIME (DME) Oxygen Home Use Kit See Rx Instructions .ROUTE Rx Instructions: As directed Discontinued azithromycin 250 mg tablet 250 mg PO DAILY 120 Days Qty: 120 0RF prednisone 10 mg tablet See Rx Instructions PO DAILY 9 Days Qty: 18 0RF Rx Instructions: PO daily; 3 tabs x 3 days, then 2 tabs daily x 3 days, then 1 tab x 3 days to complete. Patient on 10 mg daily X3 days Discharge Orders: Discharge Order (Routine); Ordered 02/02/24 Ordered By: Gaudencio Ray Diet: Advance to usual diet Activity on Discharge: As tolerated Stand Alone Forms: Patient Portal Discharge page Print Language: Luxembourgish Care Plan Goals: Resume all previous medicines as taken prior to the hospital Health Concerns: Prednisone 20 mg taper as outlined Plan of Treatment: Need to decrease your tobacco use as possible Assessment: See discharge summary
--- NOTE | 2024-02-02 13:52 | MHC.CM.PN ---
Pt medically cleared for discharge home with resumption of [facility] services, pt arranged her own transport home.
--- NOTE | 2024-02-15 08:48 | MHC.CM.PN ---
CM met with Patient at bedside. Patient lives in a condo with her /HCP/Chris and she uses a cane to assist with mobility. Patient is active with [facility] for home O2; home/resume said services is the goal and CM has initiated and will follow for dc planning. Patient hopes to return home via [facility] and would need a portable O2 tank for transport. PCP/PROPERTY MANAGEMENT BOOKKEEPER is Sirisha Huertas.
== END 2024-02-02 12:06 | disposition home or self-care (01) | DRG 140 ==
LOC: HO.ED 14:08 → HO.EDOVER 15:06 → HO.S3 20:15
PROVIDERS: Admitting Provider Nurse Practitioner Acute Care; Emergency Provider Emergency Medicine; PCP Registered Nurse; Visit Provider Hospitalist
DX: J44.1 Chronic obstructive pulmonary disease with (acute) exacerbation (principal); J96.21 Acute and chronic respiratory failure with hypoxia; Z99.81 Dependence on supplemental oxygen; F17.210 Nicotine dependence, cigarettes, uncomplicated; G47.33 Obstructive sleep apnea (adult) (pediatric); I10 Essential (primary) hypertension; E78.5 Hyperlipidemia, unspecified; G50.0 Trigeminal neuralgia; E66.8 Other obesity; Z68.36 Body mass index [BMI] 36.0-36.9, adult; Z71.6 Tobacco abuse counseling; Z20.822 Contact with and (suspected) exposure to COVID-19; Z91.041 Radiographic dye allergy status; Z91.040 Latex allergy status; Z79.82 Long term (current) use of aspirin; Z79.899 Other long term (current) drug therapy
CPT/HCPCS: 0241U; 36415; 71045; 80053; 81003; 82803; 83036; 83735; 83880; 84484; 85025; 87040; 94640; 99285; J1650; J2919; J3475

== ENCOUNTER → 2024-01-31 15:02 | Outpatient (BNV) | payer BC, SELFPAY | PROVIDERS: Admitting Provider Nurse Practitioner Acute Care; Emergency Provider Emergency Medicine; PCP Registered Nurse; Visit Provider Nurse Practitioner Acute Care | DX: G47.33 Obstructive sleep apnea (adult) (pediatric) (principal); J41.0 Simple chronic bronchitis | CPT/HCPCS: 99223; 99232; 99239 ==

== ENCOUNTER → 2024-01-31 15:02 | Outpatient (BNV) | payer BC, SELFPAY | PROVIDERS: Admitting Provider Nurse Practitioner Acute Care; Emergency Provider Emergency Medicine; PCP Registered Nurse; Visit Provider Internal Medicine Pulmonary Disease | DX: G47.33 Obstructive sleep apnea (adult) (pediatric) (principal); J41.0 Simple chronic bronchitis | CPT/HCPCS: 99232 ==

== ENCOUNTER 2024-02-14 12:28 | Inpatient (IN) | payer BC, MEDICARE, SELFPAY ==
[2024-02-14] VITALS (10 sets, daily range): BP systolic 130–157; BP diastolic 49–80; PULSE 69–82; RESP 15–28; TEMP 36.1–37; O2SAT 84–100; BMI 37.4
--- NOTE | ~2024-02-14 | XR_ITS ---
EXAMINATION: XR CHEST CLINICAL INFORMATION: Shortness of breath, COPD COMPARISON: Chest x-ray on 01/31/2024 TECHNIQUE: Frontal view of the chest was obtained. FINDINGS: No significant abnormality is noted involving the heart, lungs, mediastinum, bony thorax or soft tissues. XR/XR chest 1V IMPRESSION: Unremarkable examination. Electronically signed by: Jessica Pete MD 02/14/2024 01:52 PM EDT
--- NOTE | 2024-02-14 13:00 | ED_ITS ---
HPI - General Adult General Chief complaint: Dyspnea Stated complaint: SOB XDAYS,DUONEB PER EMS Time Seen by Provider: 02/14/24 13:00 History of Present Illness ED Provider: Courtney LOWE narrative: The patient is a 59-year-old female with a history of COPD who has been having a lot of problems with breathing over the last couple of months. I believe she has been hospitalized approximately 5 or 6 times in the last 3 months. She says that she was last discharged from the hospital approximately 8 days ago. She was discharged on a course of prednisone. The patient says that she started feeling worse yesterday. She has had increased cough and chest discomfort. No definite sputum Related Data Home Medications ?Medication ?Instructions ?Recorded ?Confirmed atorvastatin 80 mg tablet 80 mg PO BEDTIME 03/04/23 02/14/24 gubtchzjxz-nahczvyhxhuer-vnsohbio 1 tab PO DAILY PRN Headache 03/04/23 02/14/24 50 mg-325 mg-40 mg tablet duloxetine 60 mg capsule,delayed 60 mg PO BID 03/04/23 02/14/24 release gabapentin 300 mg capsule 1,200 mg PO TID 03/04/23 02/14/24 hydrocodone 5 mg-acetaminophen 325 1 tab PO BID PRN Pain 03/04/23 02/14/24 mg tablet hyoscyamine sulfate 0.125 mg tablet 0.125 - 0.25 mg PO Q4-6H PRN 03/04/23 02/14/24 Abdominal Discomfort lorazepam 1 mg tablet 1 mg PO DAILY PRN Anxiety 03/04/23 02/14/24 oxcarbazepine 600 mg tablet 600 mg PO BID 03/04/23 02/14/24 Oxygen Home Use 04/16/23 12/23/23 prazosin 2 mg capsule 2 mg PO BEDTIME 04/16/23 02/14/24 baclofen 15 mg tablet 15 mg PO TID 01/10/24 02/14/24 lidocaine 4 % topical cream 1 appl topical DAILY PRN Pain 01/17/24 02/14/24 vitamin B12 0.5 mg-folic acid 1 mg 1 tab PO DAILY 01/18/24 02/14/24 tablet albuterol sulfate 90 mcg/actuation 2 puff inhalation Q4H PRN 01/31/24 02/14/24 aerosol inhaler Shortness Of Breath Or Wheezing fluticasone fur. 200 mcg-umeclid 1 inh inhalation DAILY 02/14/24 02/14/24 62.5 mcg-vilant 25 mcg inhalat.powder (Trelegy Ellipta) Previous Rx's ?Medication ?Instructions ?Recorded amlodipine 5 mg tablet 5 mg PO DAILY #90 tabs 12/16/23 aspirin 81 mg tablet,delayed 81 mg PO DAILY #90 tabs 12/16/23 release nebulizer and compressor #1 ea 12/16/23 furosemide 20 mg tablet (Lasix) 20 mg PO DAILY #7 tabs 01/10/24 verapamil 120 mg tablet 120 mg PO BID #60 tabs 01/24/24 ipratropium 0.5 mg-albuterol 3 mg 3 ml inhalation RQ4H WHILE AWAKE 02/10/24 (2.5 mg base)/3 mL nebulization PRN sob 90 days #180 mL soln Allergies Allergy/AdvReac Type Severity Reaction Status Date / Time Iodinated Contrast Media Allergy Intermediate HIVES Verified 02/14/24 12:39 [IV CONTRAST] latex [LATEX] Allergy Unknown RASH Verified 02/14/24 12:39 morphine [MORPHINE] AdvReac Unknown VOMITING Verified 02/14/24 12:39 Review of Systems 2 Review of Systems: Yes all other systems are reviewed and are negative [facility] Past Medical History Medical History JUANITO (obstructive sleep apnea) Allergies Hypertension Elevated troponin COPD (chronic obstructive pulmonary disease) Chronic hypercapnic respiratory failure Trigeminal neuralgia Pulmonary nodules Mixed hyperlipidemia Peripheral neuropathy Tobacco use disorder Mood disorder Surgical History History of esophagogastroduodenoscopy (EGD) History of colonoscopy History of lumbar discectomy History of tubal ligation History of excision of mass History of shoulder surgery Social History Social History Household Members: Spouse Housing: House Do you presently have visiting nurse or other home services: Yes Alcohol intake: current Alcohol intake frequency: holidays/special occasions only Alcohol type: wine Comment: pt refuse bed alarm Patient Tobacco Use Status: Current everyday Tobacco user Tobacco use type: Cigarette Cigarette Packs Per Day: 1 Cigarettes Per Day: 20.0 Years Smoked: 40 e-Cigarette/Vaping Use: Never Used Second Hand Smoke Exposure: No Substance Use Type: Marijuana Advance Directives Date on File: 03/09/23 service: No Physical Exam ED Vital Signs: Vital Signs - 24 hr 02/14/24 12:36 02/14/24 13:20 02/14/24 14:13 Temperature 98.6 F Pulse Rate 74 69 Respiratory Rate 28 H 15 Blood Pressure 155/69 H Pulse Oximetry 95 84 L Oxygen Delivery Method Room Air Room Air Oxygen Flow Rate 02/14/24 14:29 02/14/24 15:45 02/14/24 16:41 Temperature Pulse Rate 74 74 82 Respiratory Rate 16 16 16 Blood Pressure 152/71 H 135/49 L Pulse Oximetry 93 94 Oxygen Delivery Method Nasal Cannula Nasal Cannula Oxygen Flow Rate 2 2 BMI result Body Mass Index 37.4 Const Other: The patient had fallen asleep after being dropped off by paramedics. She aroused easily to verbal stimuli. Her oxygen saturations on room air were 88%. She looked mildly short of breath HENMT Head: Yes normal to inspection Mouth: Normal oral and palatal mucosa present and moist mucous membranes Eyes General: appearance normal, both eyes and all related structures Neck Neck: Yes no JVD Resp Other: Inspiratory and expiratory wheezes present bilaterally with a prolonged expiratory phase. Mild increased work of breathing. Cardio Rate: regular rate Rhythm: regular rhythm Heart sounds: S1 normal heart sound present and S2 normal heart sound present GI Other: Abdomen is soft and nontender Skin Other: Skin is dry and unremarkable Neuro Other: The patient is awake and alert. Mental status seems clear. Cranial nerves are grossly intact. She moves her extremities symmetrically. Extrem Other: 1 - 2+ edema both lower legs Medications Administered Generic Name Dose Route Start Last Admin Trade Name Freq PRN Reason Stop Dose Admin Albuterol/Ipratropium 3 ml 02/14/24 20:00 02/14/24 18:59 Albuterol/Iprat 2.5/0.5mg 3 Ml Ampul.Neb INHALE 3 ml RQ4H WHILE AWAKE [place] Administration Discontinued Medications Generic Name Dose Route Start Last Admin Trade Name Freq PRN Reason Stop Dose Admin Hydrocodone Bitart/Acetaminophen 1 tab 02/14/24 17:26 02/14/24 18:28 Hydrocodone Bit/Acetam 5/325 Tablet PO 02/14/24 17:27 1 tab ONCE ONE Administration Baclofen 15 mg 02/14/24 17:26 02/14/24 18:28 Baclofen 10 Mg Tablet PO 02/14/24 17:27 15 mg ONCE ONE Administration Albuterol Sulfate 2.5 mg/ 0 mg 02/14/24 13:14 02/14/24 13:19 Albuterol/Ipratropium 3 ml INHALE 02/14/24 13:15 1 dose ONCE ONE Administration Albuterol Sulfate 2.5 mg/ 0 mg 02/14/24 15:34 02/14/24 15:41 Albuterol/Ipratropium 3 ml INHALE 02/14/24 15:35 1 dose ONCE ONE Administration Gabapentin 1,200 mg 02/14/24 17:26 02/14/24 18:28 Gabapentin 600 Mg Tablet PO 02/14/24 17:27 1,200 mg ONCE ONE Administration Methylprednisolone Sodium Succinate 60 mg 02/14/24 13:04 02/14/24 16:27 Methylprednisolone Sod Succ 125 Mg/2 Ml Vial IVPUSH 02/14/24 13:05 60 mg ONCE ONE Administration Medical Decision Making Medical Decision Making [facility] Narrative: The patient is a 59-year-old female with a history of COPD who presents with worsening shortness of breath. She has wheezing on exam and a prolonged expiratory she is on home oxygen for nighttime and with exertion but is normally not on oxygen at rest. She currently seems to have an oxygen requirement at rest. She was given bronchodilator treatments and IV steroids. She remained short of breath with simple exertion such as conversation. She will be admitted for further care. Lab Data 02/14/24 14:15 02/14/24 15:28 Labs: Lab Results 02/14/24 02/14/24 Range/Units 14:15 15:28 WBC 9.9 (4.8-10.8) X10*3/uL RBC 4.33 (4.20-5.50) X10*6/uL Hgb 14.3 (12.0-16.0) g/dl Hct 43.4 (37.0-47.0) % MCV 100.2 H (80.0-98.0) fL MCH 33.0 (27.0-33.0) pg MCHC 32.9 (31.0-35.0) g/dl RDW 15.9 (11.0-16.0) % Plt Count 361 (160-400) X10*3/uL MPV 9.1 L (9.4-12.3) fL Immature Gran % (Auto) 0.3 (0.0-0.4) % Neut % (Auto) 67.8 (45-73) % Lymph % (Auto) 20.5 (20-40) % [place] % (Auto) 7.8 (2-11) % Eos % (Auto) 3.2 (0-4) % Baso % (Auto) 0.4 (0-2) % Lymph # (Auto) 2.0 (1.2-4.9) X10*3/uL [place] # (Auto) 0.8 (0.1-1.2) X10*3/uL Eos # (Auto) 0.3 (0.0-0.4) X10*3/uL Baso # (Auto) 0.0 (0.0-0.2) X10*3/uL Abs Immat Gran (auto) 0.03 (0.00-0.03) X10*3/uL Absolute Neuts (auto) 6.7 (2.0-8.3) x10*3/uL Absolute Nucleated RBC 0.000 (0.0-0.012) X10*3/uL Nucleated RBC % (auto) 0.0 (0.0-0.2) /100WBC Sodium 143 (135-145) mmol/L Potassium 3.5 D (3.3-5.1) mmol/L Chloride 104 (96-108) mmol/L Carbon Dioxide 31 H (22-29) mmol/L Anion Gap 12 (12-20) BUN 10 (9-16) mg/dL Creatinine 0.67 (0.5-1.4) mg/dL Estim Creat Clear Calc 89.8 Estimated GFR > 60 Random Glucose 99 (60-115) mg/dL Calcium 9.7 (8.4-10.2) mg/dL Magnesium 2.2 (1.6-2.6) mg/dL Total Bilirubin 0.4 (0.0-1.0) mg/dL Direct Bilirubin 0.2 (0.0-0.5) mg/dL AST 12 (5-31) U/L ALT 15 (0-31) U/L Alkaline Phosphatase 70 (39-117) U/L Troponin I High Sens 9.7 (<3.5-17.0) ng/L C-Reactive Protein 3.63 H (< or = 0.50) mg/dL B-Natriuretic Peptide 27 (<100) pg/mL Total Protein 6.4 L (6.5-8.0) g/dL Albumin 4.0 (3.5-5.0) g/dL Influenza Type A (PCR) NEGATIVE (Negative) Influenza Type B (PCR) NEGATIVE (Negative) RSV RNA Qual (PCR) NEGATIVE (Negative) SARS-CoV-2 RNA (RT-PCR) NEGATIVE (Negative) Discharge Plan Discharge Clinical Impression: Acute exacerbation of chronic obstructive pulmonary disease Patient Disposition: Admitted As Inpatient Interventions: Admission Worksheet (ED) Last Done: 02/14/24 19:46 Discharge Date/Time: 02/14/24 20:41
--- NOTE | 2024-02-14 13:04 | ECG_ITS ---
Test Reason : DYSPNEA Blood Pressure : / mmHG Vent. Rate : 073 BPM Atrial Rate : 073 BPM P-R Int : 130 ms QRS Dur : 092 ms QT Int : 384 ms P-R-T Axes : 066 070 043 degrees QTc Int : 423 ms Sinus rhythm with occasional Premature ventricular complexes and Premature atrial complexes Otherwise normal ECG When compared with ECG of 16-JAN-2024 18:27, Premature ventricular complexes are now Present Premature atrial complexes are now Present Referred By: Tyson Valdez Electronically Signed By:KLAUDIA CLEMENS
[2024-02-14] MEDS: Albuterol Sulfate 2.5 MG, Albuterol/Iprat 2.5/0.5MG 3 ML 3 ML INHALE ×2 (13:19→15:41)
[2024-02-14 14:19] LABS: MANUAL DIFF FLAG NO
[2024-02-14 14:21] LABS: Basophils Percent Auto 0.4 % (0-2); Eosinophils Absolute Auto 0.3 X10*3/uL (0.0-0.4); Eosinophils Percent Auto 3.2 % (0-4); Hematocrit 43.4 % (37.0-47.0); Hemoglobin 14.3 g/dl (12.0-16.0); Imm Gran Abs Auto 0.03 X10*3/uL (0.00-0.03); Imm Gran Pct Auto 0.3 % (0.0-0.4); Lymphocytes Percent Auto 20.5 % (20-40); Mean Corpuscular HGB Conc 32.9 g/dl (31.0-35.0); Mean Corpuscular Volume 100.2 fL (80.0-98.0); Mean Platelet Volume 9.1 fL (9.4-12.3); Monocytes Absolute Auto 0.8 X10*3/uL (0.1-1.2); Monocytes Percent Auto 7.8 % (2-11); Neutrophils Absolute Auto 6.7 x10*3/uL (2.0-8.3); Neutrophils Percent Auto 67.8 % (45-73); Platelet Count 361 X10*3/uL (160-400); Red Blood Count 4.33 X10*6/uL (4.20-5.50); Red Cell Distribution Width 15.9 % (11.0-16.0); White Blood Count 9.9 X10*3/uL (4.8-10.8)
[2024-02-14 14:40] LABS: B Type Natriuretic Peptide 27 pg/mL (<100)
[2024-02-14 14:44] LABS: Troponin-I High Sensitivity 9.7 ng/L (<3.5-17.0)
[2024-02-14 16:19] LABS: Alanine Aminotransferase 15 U/L (0-31); Alkaline Phosphatase 70 U/L (39-117); Anion Gap 12 (12-20); Aspartate Amino Transferase 12 U/L (5-31); Bilirubin Direct 0.2 mg/dL (0.0-0.5); Bilirubin Total 0.4 mg/dL (0.0-1.0); Blood Urea Nitrogen 10 mg/dL (9-16); C Reactive Protein 3.63 mg/dL (< or = 0.50); Calcium 9.7 mg/dL (8.4-10.2); Carbon Dioxide 31 mmol/L (22-29); Chloride 104 mmol/L (96-108); Creatinine Clr Calc Pharmacy 89.8; Estimated Glomerular Filt Rate > 60; Glucose Random 99 mg/dL (60-115); Magnesium 2.2 mg/dL (1.6-2.6); Potassium 3.5 mmol/L (3.3-5.1); Sodium 143 mmol/L (135-145); Total Protein 6.4 g/dL (6.5-8.0)
[2024-02-14 16:20] LABS: Influenza A PCR NEGATIVE (Negative); Influenza B PCR NEGATIVE (Negative); Resp Syncy Virus RNA Qual PCR NEGATIVE (Negative); SARS COV2 PCR INHOUSE NEGATIVE (Negative)
[2024-02-14] MEDS: methylPREDNISolone Sod Succ 125 MG/2 ML VIAL 60 MG IVPUSH (16:27)
--- NOTE | 2024-02-14 17:50 | P.HPHOSP_ITS ---
History of Present Illness Date of Service: 02/14/24 Chief Complaint: sob 59F PMH chronic hypoxic respiratory failure due to COPD, on 1 L at rest and 2 L on exertion, trigeminal neuralgia, hypertension, mood disorder, hyperlipidemia, history of lacunar infarcts, PTSD, MVR, occipital neuralgia, brain aneurysm, right-sided sciatica presented with shortness of breath. Patient has had multiple admissions for COPD exacerbation over the last 3 months most recently discharged 02/02/2024. Patient states she was feeling at her baseline at discharge until day prior to presentation started to have severe shortness of breath, worse on any minor exertion, no relieving factors, did not improve with nebs at home, denies fever chills or cough. Noted at home to be hypoxic even on 2 L so came to ED. In ED, cxr unremarkable, sat 84% room air, 94 on 2L. Review of Systems 2 Review of Systems: Yes all other systems are reviewed and are negative [facility] Medical History JUANITO (obstructive sleep apnea) Allergies Hypertension Elevated troponin COPD (chronic obstructive pulmonary disease) Chronic hypercapnic respiratory failure Trigeminal neuralgia Pulmonary nodules Mixed hyperlipidemia Peripheral neuropathy Tobacco use disorder Mood disorder Surgical History History of esophagogastroduodenoscopy (EGD) History of colonoscopy History of lumbar discectomy History of tubal ligation History of excision of mass History of shoulder surgery Social History Household Members: Spouse Housing: Condominium Do you presently have visiting nurse or other home services: Yes Alcohol intake: current Alcohol intake frequency: holidays/special occasions only Alcohol type: wine Comment: pt refuse bed alarm Patient Tobacco Use Status: Current everyday Tobacco user Tobacco use type: Cigarette Cigarette Packs Per Day: 1 Cigarettes Per Day: 20.0 Years Smoked: 40 e-Cigarette/Vaping Use: Never Used Second Hand Smoke Exposure: No Substance Use Type: Marijuana Advance Directives: Yes Advance Directives on File: Yes Advance Directives Date on File: 03/09/23 Do you have a plan to hurt others: No Plan service: No Meds Allergies Allergy/AdvReac Type Severity Reaction Status Date / Time Iodinated Contrast Media Allergy Intermediate HIVES Verified 02/14/24 12:39 [IV CONTRAST] latex [LATEX] Allergy Unknown RASH Verified 02/14/24 12:39 morphine [MORPHINE] AdvReac Unknown VOMITING Verified 02/14/24 12:39 Active Medications: Current Medications Albuterol/Ipratropium (Albuterol/Iprat 2.5/0.5mg 3 Ml Ampul.Neb) 3 ml INHALE RQ4H WHILE AWAKE [facility] Methylprednisolone Sodium Succinate (Methylprednisolone Sod Succ 40 Mg/Ml Vial) 40 mg IVPUSH Q12H [facility] Home Medications ?Medication ?Instructions ?Recorded ?Confirmed ?Last Taken ?Type atorvastatin 80 mg tablet 80 mg PO BEDTIME 03/04/23 01/31/24 01/30/24 History fxhxgotoir-mrnmdepfttxfz-tpsgucnm 1 tab PO DAILY PRN Headache 03/04/23 01/31/24 1 Day Ago History 50 mg-325 mg-40 mg tablet ~01/16/24 duloxetine 60 mg capsule,delayed 60 mg PO BID 03/04/23 01/31/24 01/30/24 History release gabapentin 300 mg capsule 1,200 mg PO TID 03/04/23 01/31/24 01/30/24 History hydrocodone 5 mg-acetaminophen 325 1 tab PO BID PRN Pain 03/04/23 01/31/24 01/30/24 History mg tablet hyoscyamine sulfate 0.125 mg tablet 0.125 - 0.25 mg PO Q4-6H PRN 03/04/23 01/31/24 1 Day Ago History Abdominal Discomfort ~01/16/24 lorazepam 1 mg tablet 1 mg PO DAILY PRN Anxiety 03/04/23 01/31/24 1 Day Ago History ~01/16/24 oxcarbazepine 600 mg tablet 600 mg PO BID 03/04/23 01/31/24 01/30/24 History Oxygen Home Use 04/16/23 12/23/23 Unknown History prazosin 2 mg capsule 2 mg PO BEDTIME 04/16/23 01/31/24 01/30/24 History baclofen 15 mg tablet 15 mg PO TID 01/10/24 01/31/24 01/30/24 History lidocaine 4 % topical cream 1 appl topical DAILY PRN Pain 01/17/24 01/31/24 Unknown History tiotropium 2.5 mcg-olodaterol 2.5 2 puff inhalation DAILY 01/17/24 01/31/24 01/30/24 History mcg/actuation mist for inhalation (Stiolto Respimat) vitamin B12 0.5 mg-folic acid 1 mg 1 tab PO DAILY 01/18/24 01/31/24 01/30/24 History tablet albuterol sulfate 90 mcg/actuation 2 puff inhalation Q4H PRN 01/31/24 01/31/24 Unknown History aerosol inhaler Shortness Of Breath Or Wheezing Physical Exam 2 Vital Signs and Narrative: Vital Signs: Last Vital Signs Temp 98.6 F 02/14/24 12:36 Pulse 82 02/14/24 16:41 Resp 16 02/14/24 16:41 BP 135/49 L 02/14/24 16:41 Pulse Ox 94 02/14/24 16:41 O2 Del Method Nasal Cannula 02/14/24 16:41 O2 Flow Rate 2 02/14/24 16:41 BMI result Body Mass Index 37.4 General: AO X 3, no acute distress Resp: wheezing bilateral, no accessory muscles used CVS: S1,S2,RRR GI: soft, non tender, non distended Neuro: motor grossly intact, alert Psych: appropriate affect, appropriate insight Results Labs 02/14/24 14:15 02/14/24 15:28 Labs: Laboratory Results - last 24 hr 02/14/24 02/14/24 14:15 15:28 MCV 100.2 H MCH 33.0 MCHC 32.9 RDW 15.9 Plt Count 361 MPV 9.1 L Immature Gran % (Auto) 0.3 Neut % (Auto) 67.8 Lymph % (Auto) 20.5 [place] % (Auto) 7.8 Eos % (Auto) 3.2 Baso % (Auto) 0.4 Lymph # (Auto) 2.0 [place] # (Auto) 0.8 Eos # (Auto) 0.3 Baso # (Auto) 0.0 Abs Immat Gran (auto) 0.03 Absolute Neuts (auto) 6.7 Absolute Nucleated RBC 0.000 Nucleated RBC % (auto) 0.0 Anion Gap 12 Estim Creat Clear Calc 89.8 Estimated GFR > 60 Random Glucose 99 Calcium 9.7 Magnesium 2.2 Total Bilirubin 0.4 Direct Bilirubin 0.2 AST 12 ALT 15 Alkaline Phosphatase 70 Troponin I High Sens 9.7 C-Reactive Protein 3.63 H B-Natriuretic Peptide 27 Total Protein 6.4 L Albumin 4.0 Influenza Type A (PCR) NEGATIVE Influenza Type B (PCR) NEGATIVE RSV RNA Qual (PCR) NEGATIVE SARS-CoV-2 RNA (RT-PCR) NEGATIVE Imaging Radiologist's Impressions: Impressions Chest X-Ray 02/14/24 13:05 IMPRESSION: Unremarkable examination. Electronically signed by: Jessica Pete MD 02/14/2024 01:52 PM EDT RP Assessment and Plan (1) Acute exacerbation of chronic obstructive pulmonary disease: Status: Acute Plan 59F PMH chronic hypoxic respiratory failure due to COPD, on 1 L at rest and 2 L on exertion, trigeminal neuralgia, hypertension, mood disorder, hyperlipidemia, history of lacunar infarcts, PTSD, MVR, occipital neuralgia, brain aneurysm, right-sided sciatica presented with shortness of breath Acute on chronic hypoxic respiratory failure secondary to COPD with acute decompensation IV steroids, DuoNebs Still requiring 2 L at rest, wean down to baseline 1 L Monitor closely as history of need for BiPAP and ICU admissions History of lacunar infarcts Continue aspirin statin Hypertension Continue amlodipine Trigeminal neuralgia Oxcarbazepine Mood disorder Cymbalta DVT prophylaxis with Lovenox Full Code Patient with significant shortness breath and wheezing with history of severe decompensation requiring BiPAP and ICU admissions therefore expected require at least 2 midnights inpatient Quality Stroke Does the patient have a stroke diagnosis?: No VTE Prior VTE?: No VTE Risk Level:: Medical - moderate - high VTE Device Contraindication: Treatment Not Indicated VTE Drug Contraindication: N/A - Med Ordered
--- NOTE | 2024-02-14 18:13 | PC.NURSE ---
Unable to obtain bloodwork or IV access. Claudia Devries NP aware.
--- NOTE | 2024-02-14 18:20 | PHA.MEDREC ---
Pharmacy Consult ? Medication Reconciliation Pharmacy has completed the medication reconciliation.Med rec complete, spoke with patient and confirmed with pharmacy claim history. Patient was also just recently discharged, pt a good historian.
[2024-02-14] MEDS: Baclofen 10 MG TABLET 15 MG PO ×2 (18:28→21:46)
[2024-02-14] MEDS: HYDROcodone Bit/Acetam 5/325 TABLET 1 TAB PO (18:28)
[2024-02-14] MEDS: Gabapentin 600 MG TABLET 1200 MG PO (18:28)
[2024-02-14] MEDS: Albuterol/Iprat 2.5/0.5MG 3 ML AMPUL.NEB INHALE (18:59)
--- NOTE | 2024-02-14 19:04 | PC.NURSE ---
Assumed care of pt. respiratory at bedside for scheduled breathing treatment. pt with mild exp wheeze as documented, otherwise no acute distress. Continuing plan of care for admission to [facility]
--- NOTE | 2024-02-14 20:04 | MHC.EDTECH ---
Pt changed over into a hospital gown and belongings list completed for admission
[2024-02-14] MEDS: VerapamiL HCL 120 MG TABLET PO (21:46)
[2024-02-14] MEDS: Atorvastatin Calcium 80 MG TABLET PO (21:46)
[2024-02-14] MEDS: Gabapentin 400 MG CAPSULE 1200 MG PO (21:46)
[2024-02-14] MEDS: Prazosin HCL 1 MG CAPSULE 2 MG PO (21:46)
[2024-02-14] MEDS: OXcarbazepine 300 MG TABLET 600 MG PO (21:47)
[2024-02-14] MEDS: DULoxetine HCl 60 MG CAPSULE.DR PO (21:47)
[2024-02-14 23:09] LABS: VBG Base Excess 1.9 mmol/L; VBG HCO3 26 mmol/L (22-26); VBG pCO2 41 mmHg; VBG pH 7.41 (7.32-7.43); VBG pO2 153 mmHg
[2024-02-14 23:12] LABS: Venous Blood Gas Refer to POC result
[2024-02-14] MEDS: LORazepam 1 MG TABLET PO (23:26)
[2024-02-15] VITALS (10 sets, daily range): BP systolic 140–163; BP diastolic 66–71; PULSE 76–86; RESP 18–20; TEMP 36.1–36.9; O2SAT 90–100
[2024-02-15] MEDS: 0.9 % Sodium Chloride Flush 3 ML SYRINGE IVFLUSH ×3 (00:31→17:24)
--- NOTE | 2024-02-15 00:37 | PC.RT ---
Pt refused NOC CPAP
[2024-02-15] MEDS: HYDROcodone Bit/Acetam 5/325 TABLET 1 TAB PO ×2 (02:07→13:59)
[2024-02-15 06:14] LABS: Hematocrit 40.9 % (37.0-47.0); Hemoglobin 13.2 g/dl (12.0-16.0); Mean Corpuscular HGB Conc 32.3 g/dl (31.0-35.0); Mean Corpuscular Hemoglobin 32.8 pg (27.0-33.0); Mean Corpuscular Volume 101.7 fL (80.0-98.0); Mean Platelet Volume 9.6 fL (9.4-12.3); Platelet Count 343 X10*3/uL (160-400); Red Blood Count 4.02 X10*6/uL (4.20-5.50); Red Cell Distribution Width 15.9 % (11.0-16.0); White Blood Count 9.8 X10*3/uL (4.8-10.8)
[2024-02-15] MEDS: Baclofen 10 MG TABLET 15 MG PO ×3 (06:17→21:09)
[2024-02-15] MEDS: Gabapentin 400 MG CAPSULE 1200 MG PO ×3 (06:17→21:09)
[2024-02-15] MEDS: DULoxetine HCl 60 MG CAPSULE.DR PO ×2 (06:18→21:11)
[2024-02-15] MEDS: Aspirin Enteric Coated 81 MG TABLET.DR PO (06:18)
[2024-02-15] MEDS: OXcarbazepine 300 MG TABLET 600 MG PO ×2 (06:18→21:09)
[2024-02-15] MEDS: VerapamiL HCL 120 MG TABLET PO ×2 (06:18→21:11)
[2024-02-15] MEDS: amLODIPine Besylate 5 MG TABLET PO (06:18)
[2024-02-15] MEDS: Furosemide 20 MG TABLET PO (06:18)
[2024-02-15 06:31] LABS: Anion Gap 14 (12-20); Blood Urea Nitrogen 13 mg/dL (9-16); Calcium 9.3 mg/dL (8.4-10.2); Carbon Dioxide 27 mmol/L (22-29); Chloride 106 mmol/L (96-108); Creatinine Clr Calc Pharmacy 81.3; Estimated Glomerular Filt Rate > 60; Glucose Fasting 116 mg/dL (60-99); Magnesium 2.4 mg/dL (1.6-2.6); Potassium 4.5 mmol/L (3.3-5.1); Sodium 142 mmol/L (135-145)
[2024-02-15] MEDS: Albuterol/Iprat 2.5/0.5MG 3 ML AMPUL.NEB INHALE ×4 (08:05→19:40)
[2024-02-15] MEDS: methylPREDNISolone Sod Succ 40 MG/ML VIAL IVPUSH ×2 (08:47→21:11)
--- NOTE | 2024-02-15 08:54 | MHC.CM.PN ---
Zulma Alves Female : 1965 Emr# [id number] 02/15/24 08:48 - Case Mgmt Progress Note by Perla Olivas Acct Num: [id number] : 1965 Patient Age: 59 CM met with Patient at bedside. Patient lives in a condo with her /HCP/Chris and she uses a cane to assist with mobility. Patient is active with [facility] for home O2; home/resume said services is the goal and CM has initiated and will follow for dc planning. Patient hopes to return home via [facility] and would need a portable O2 tank for transport. PCP/PACKAGE WORKER is Sirisha Huertas. Initialized on 02/15/24 08:48 - END OF NOTE
--- NOTE | 2024-02-15 09:19 | HO.PM.IMPN ---
Subjective Subjective Date of Service: 02/15/24 Interval History: a bit better Physical Exam Vital Signs: Vital Signs: Last Vital Signs Temp 97.0 F 02/15/24 08:00 Pulse 86 02/15/24 08:11 Resp 20 02/15/24 08:11 BP 141/69 H 02/15/24 08:00 Pulse Ox 92 02/15/24 08:00 O2 Del Method Nasal Cannula 02/15/24 08:00 O2 Flow Rate 2 02/15/24 08:00 BMI result Body Mass Index 37.4 59F PMH chronic hypoxic respiratory failure due to COPD, on 1 L at rest and 2 L on exertion, trigeminal neuralgia, hypertension, mood disorder, hyperlipidemia, history of lacunar infarcts, PTSD, MVR, occipital neuralgia, brain aneurysm, right-sided sciatica presented with shortness of breath Acute on chronic hypoxic respiratory failure secondary to COPD with acute decompensation IV steroids, DuoNebs Still requiring 2 L at rest, wean down to baseline 1 L History of lacunar infarcts Continue aspirin statin Hypertension Continue amlodipine, prazosin Trigeminal neuralgia Oxcarbazepine Mood disorder Cymbalta DVT prophylaxis with Lovenox Full Code reason for continued hospitalization:sob, wheezing, not on baseline o2 Objective Data Active Medications Acetaminophen (Acetaminophen 325 Mg Tablet) 650 mg PO Q6H PRN PRN Reason: Pain, Mild (Pain Scale 1-3), fever or headache Acetaminophen/Butalbital/Caffeine (Butalb/Acetamin/Caff 50/325/40 Tablet) 1 tab PO DAILY PRN PRN Reason: Headache Hydrocodone Bitart/Acetaminophen (Hydrocodone Bit/Acetam 5/325 Tablet) 1 tab PO BID PRN PRN Reason: Pain. Last Admin: 02/15/24 02:07 Dose: 1 tab Documented By: SHARON Albuterol/Ipratropium (Albuterol/Iprat 2.5/0.5mg 3 Ml Ampul.Neb) 3 ml INHALE RQ4H WHILE AWAKE ON LICENSE OF [facility] Last Admin: 02/15/24 08:05 Dose: 3 ml Documented By: LAN Amlodipine Besylate (Amlodipine Besylate 5 Mg Tablet) 5 mg PO DAILY ON LICENSE OF [facility]; Protocol Last Admin: 02/15/24 06:18 Dose: 5 mg Documented By: SHARON Aspirin (Aspirin Enteric Coated 81 Mg Tablet.) 81 mg PO DAILY ON LICENSE OF [facility] Last Admin: 02/15/24 06:18 Dose: 81 mg Documented By: SHARON Atorvastatin Calcium (Atorvastatin Calcium 80 Mg Tablet) 80 mg PO BEDTIME ON LICENSE OF [facility] Last Admin: 02/14/24 21:46 Dose: 80 mg Documented By: SHARON Baclofen (Baclofen 10 Mg Tablet) 15 mg PO TID ON LICENSE OF [facility] Last Admin: 02/15/24 06:17 Dose: 15 mg Documented By: SHARON Calcium Carbonate (Calcium Carbonate 750 Mg Tab.Chew) 750 mg PO Q4H PRN PRN Reason: Heartburn Duloxetine HCl (Duloxetine Hcl 60 Mg Capsule.) 60 mg PO BID ON LICENSE OF [facility] Last Admin: 02/15/24 06:18 Dose: 60 mg Documented By: SHARON Enoxaparin Sodium (Enoxaparin Sodium 40 Mg/0.4 Ml Syringe) 40 mg SUBCUT Q24H ON LICENSE OF [facility] Last Admin: 02/15/24 08:57 Dose: Not Given Documented By: MANDEEP Non-Admin Reason: Patient Refused Furosemide (Furosemide 20 Mg Tablet) 20 mg PO DAILY ON LICENSE OF [facility]; Protocol Last Admin: 02/15/24 06:18 Dose: 20 mg Documented By: SHARON Gabapentin (Gabapentin 400 Mg Capsule) 1,200 mg PO TID ON LICENSE OF [facility] Last Admin: 02/15/24 06:17 Dose: 1,200 mg Documented By: SHARON Lorazepam (Lorazepam 1 Mg Tablet) 1 mg PO DAILY PRN PRN Reason: Anxiety Last Admin: 02/14/24 23:26 Dose: 1 mg Documented By: MARIANA Magnesium Hydroxide (Milk Of Magnesia 30 Ml Oral.Susp) 30 ml PO DAILY PRN PRN Reason: Constipation Melatonin (Melatonin 3 Mg Tablet) 6 mg PO BEDTIME PRN PRN Reason: Insomnia Methylprednisolone Sodium Succinate (Methylprednisolone Sod Succ 40 Mg/Ml Vial) 40 mg IVPUSH Q12H ON LICENSE OF [facility] Last Admin: 02/15/24 08:47 Dose: 40 mg Documented By: MANDEEP Oxcarbazepine (Oxcarbazepine 300 Mg Tablet) 600 mg PO BID ON LICENSE OF [facility] Last Admin: 02/15/24 06:18 Dose: 600 mg Documented By: SHARON Prazosin HCl (Prazosin Hcl 1 Mg Capsule) 2 mg PO BEDTIME ON LICENSE OF [facility]; Protocol Last Admin: 02/14/24 21:46 Dose: 2 mg Documented By: SHARON Sodium Chloride (0.9 % Sodium Chloride Flush 3 Ml Syringe) [address] [facility] Last Admin: 02/15/24 08:51 Dose: 3 ml Documented By: MANDEEP Comments: new IV 20g placed in right arm Verapamil HCl (Verapamil Hcl 120 Mg Tablet) 120 mg PO BID [facility]; Protocol Last Admin: 02/15/24 06:18 Dose: 120 mg Documented By: SHARON Labs 02/15/24 05:42 02/15/24 05:42 Labs: Laboratory Results - last 24 hr 02/14/24 02/14/24 02/14/24 14:15 15:28 23:05 MCV 100.2 H MCH 33.0 MCHC 32.9 RDW 15.9 Plt Count 361 MPV 9.1 L Immature Gran % (Auto) 0.3 Neut % (Auto) 67.8 Lymph % (Auto) 20.5 [place] % (Auto) 7.8 Eos % (Auto) 3.2 Baso % (Auto) 0.4 Lymph # (Auto) 2.0 [place] # (Auto) 0.8 Eos # (Auto) 0.3 Baso # (Auto) 0.0 Abs Immat Gran (auto) 0.03 Absolute Neuts (auto) 6.7 Absolute Nucleated RBC 0.000 Nucleated RBC % (auto) 0.0 VBG pH 7.41 VBG pCO2 41 VBG pO2 153 VBG HCO3 26 VBG O2 Saturation 100.0 VBG Base Excess 1.9 Anion Gap 12 Estim Creat Clear Calc 89.8 Estimated GFR > 60 Random Glucose 99 Fasting Glucose Calcium 9.7 Magnesium 2.2 Total Bilirubin 0.4 Direct Bilirubin 0.2 AST 12 ALT 15 Alkaline Phosphatase 70 Troponin I High Sens 9.7 C-Reactive Protein 3.63 H B-Natriuretic Peptide 27 Total Protein 6.4 L Albumin 4.0 Influenza Type A (PCR) NEGATIVE Influenza Type B (PCR) NEGATIVE RSV RNA Qual (PCR) NEGATIVE SARS-CoV-2 RNA (RT-PCR) NEGATIVE 02/15/24 05:42 MCV 101.7 H MCH 32.8 MCHC 32.3 RDW 15.9 Plt Count 343 MPV 9.6 Immature Gran % (Auto) Neut % (Auto) Lymph % (Auto) [place] % (Auto) Eos % (Auto) Baso % (Auto) Lymph # (Auto) [place] # (Auto) Eos # (Auto) Baso # (Auto) Abs Immat Gran (auto) Absolute Neuts (auto) Absolute Nucleated RBC 0.000 Nucleated RBC % (auto) 0.0 VBG pH VBG pCO2 VBG pO2 VBG HCO3 VBG O2 Saturation VBG Base Excess Anion Gap 14 Estim Creat Clear Calc 81.3 Estimated GFR > 60 Random Glucose Fasting Glucose 116 H Calcium 9.3 Magnesium 2.4 Total Bilirubin Direct Bilirubin AST ALT Alkaline Phosphatase Troponin I High Sens C-Reactive Protein B-Natriuretic Peptide Total Protein Albumin Influenza Type A (PCR) Influenza Type B (PCR) RSV RNA Qual (PCR) SARS-CoV-2 RNA (RT-PCR) Quality Stroke Does the patient have a stroke diagnosis?: No VTE Prior VTE?: No VTE Risk Level:: Medical - moderate - high VTE Device Contraindication: Treatment Not Indicated VTE Drug Contraindication: N/A - Med Ordered
[2024-02-15] MEDS: Milk of Magnesia 30 ML ORAL.SUSP PO (14:08)
[2024-02-15] MEDS: Prazosin HCL 1 MG CAPSULE 2 MG PO (21:09)
[2024-02-15] MEDS: Atorvastatin Calcium 80 MG TABLET PO (21:10)
[2024-02-15] MEDS: LORazepam 1 MG TABLET PO (21:11)
[2024-02-15] MEDS: Calcium Carbonate 750 MG TAB.CHEW PO (23:06)
[2024-02-16 03:23] VITALS: BP 161/82; PULSE 92; RESP 16; TEMP 36.4; O2SAT 91
[2024-02-16] MEDS: Albuterol/Iprat 2.5/0.5MG 3 ML AMPUL.NEB INHALE ×3 (03:28→11:07)
[2024-02-16 03:29] VITALS: PULSE 91; RESP 18; O2SAT 94
[2024-02-16] MEDS: HYDROcodone Bit/Acetam 5/325 TABLET 1 TAB PO (03:46)
[2024-02-16 07:31] VITALS: PULSE 86; RESP 18; O2SAT 96
[2024-02-16 08:00] VITALS: BP 148/73; PULSE 76; RESP 20; TEMP 36.3; O2SAT 100
[2024-02-16 08:56] VITALS: BP 148/73; PULSE 76
[2024-02-16] MEDS: Furosemide 20 MG TABLET PO (08:56)
[2024-02-16] MEDS: Aspirin Enteric Coated 81 MG TABLET.DR PO (08:56)
[2024-02-16] MEDS: Baclofen 10 MG TABLET 15 MG PO (08:56)
[2024-02-16] MEDS: VerapamiL HCL 120 MG TABLET PO (08:56)
[2024-02-16] MEDS: amLODIPine Besylate 5 MG TABLET PO (08:56)
[2024-02-16] MEDS: OXcarbazepine 300 MG TABLET 600 MG PO (08:57)
[2024-02-16] MEDS: Gabapentin 400 MG CAPSULE 1200 MG PO (08:57)
[2024-02-16] MEDS: DULoxetine HCl 60 MG CAPSULE.DR PO (08:57)
[2024-02-16] MEDS: methylPREDNISolone Sod Succ 40 MG/ML VIAL IVPUSH (08:57)
[2024-02-16] MEDS: 0.9 % Sodium Chloride Flush 3 ML SYRINGE IVFLUSH ×2 (09:04)
--- NOTE | 2024-02-16 10:44 | MHC.CM.PN ---
Pt is medically cleared for discharge home today with resumption of previous [facility] services and home O2 through [facility]. Pt will transport home via the [facility].
--- NOTE | 2024-02-16 10:56 | P.DS_ITS ---
DS: Providers Provider Date of Service: 02/16/24 Date of admission: 02/14/24 17:49 Date of discharge: 02/16/24 Primary care physician: ESTEBAN Christianson DS: Diagnosis Discharge Diagnosis (1) Acute exacerbation of chronic obstructive pulmonary disease: Status: Acute DS: Summary Hospital Course Hospital Course: Admission note HPI 59F PMH chronic hypoxic respiratory failure due to COPD, on 1 L at rest and 2 L on exertion, trigeminal neuralgia, hypertension, mood disorder, hyperlipidemia, history of lacunar infarcts, PTSD, MVR, occipital neuralgia, brain aneurysm, right-sided sciatica presented with shortness of breath. Patient has had [facility] for COPD exacerbation over the last 3 months most recently discharged 02/02/2024. Patient states she was feeling at her baseline at discharge until day prior to presentation started to have severe shortness of breath, worse on any minor exertion, no relieving factors, did not improve with nebs at home, denies fever chills or cough. Noted at home to be hypoxic even on 2 L so came to ED. In ED, cxr unremarkable, sat 84% room air, 94 on 2L. Hospital course The patient was admitted for treatment of COPD exacerbation with increase O2 need. Responsed well to treatment with IV steroids and bronchodilator nebulizers as she was able to ambulate at hospital halls with no reported dyspnea maintaining O2 sat >90 on 2L on O2 which is her baseline. To be discharged home on PRednisone tapering dose and to continue using home nebulizer regularly. She has a plan for stress test tomorrow to be evaluated by cardiology prior to the study. Discharge plan Use Nebulizer treatment every 4-6 hours while awake for the next 3 days then as needed Prednisone tapering dose as prescribed Oxygen supplement as needed Time Attestation Discharge Coordination Time (in mins): 34 Quality: Safe Use of Opioids Does Pt have an Active Cancer Diagnosis on the Problem List?: No Quality: Stroke Does the patient have a stroke diagnosis?: No Physical Exam Vital Signs: Vital Signs: Last Vital Signs Temp 97.3 F 02/16/24 08:00 Pulse 76 02/16/24 08:56 Resp 20 02/16/24 08:00 BP 148/73 H 02/16/24 08:56 Pulse Ox 100 02/16/24 08:00 O2 Del Method Nasal Cannula 02/16/24 08:00 O2 Flow Rate 1 02/16/24 08:00 BMI result Body Mass Index 37.4 Const: Other: Constitutional : Awake, interactive, not in distress Neck : Normal inspection, Supple Cardiovascular : RRR, no JVP, no lower extremity edema Respiratory : fair bilateral air entry, no crackles, fine scattered expiratory wheezes Gastrointestinal: soft, lax, Normal bowel sounds, Non tender Skin : Warm, Dry Neurological : Alert & oriented x3, No focal deficit DS: Data Data Completed and Pending Completed studies during hospitalization [Text1]: Procedures Assistance with Respiratory Ventilation, Less than 24 Consecutive Hours, Continuous Positive Airway Pressure (12/10/23) Imaging Chest x-ray: Radiologist's impression: ITS Impressions Chest X-Ray 02/14/24 13:05 IMPRESSION: Unremarkable examination. Electronically signed by: Jessica Pete MD 02/14/2024 01:52 PM EDT RP Discharge Plan Discharge Anticipated Discharge Date/Time: 02/16/24 10:50 Patient Disposition: Home Health Service Discharge Diagnosis: COPD exacerbation Referrals: [facility] RO[facility] [Outside] - 1 Week Sirisha Huertas FNP-BC [Primary Care Provider] - 1 Week Discharge Medications: New prednisone 10 mg tablet See Taper PO DAILY Qty: 30 0RF Taper: Prednisone 40 mg daily for 3 Days and 0 Hour 30 mg daily for 3 Days and 0 Hour 20 mg daily for 3 Days and 0 Hour 10 mg daily for 3 Days and 0 Hour Rx Instructions: 10 mg orally ;see taper instructions guaifenesin 100 mg/5 mL liquid 200 mg PO Q6H Qty: 473 1RF Continued verapamil 120 mg tablet 120 mg PO BID Qty: 60 1RF ipratropium-albuterol 0.5 mg-3 mg(2.5 mg base)/3 mL solution for nebulization 3 ml inhalation RQ4H WHILE AWAKE PRN (Reason: sob) 90 Days Qty: 180 0RF baclofen 15 mg Tablet 15 mg PO TID furosemide [Lasix] 20 mg tablet 20 mg PO DAILY Qty: 7 0RF lidocaine 4 % Cream 1 appl TOPICAL DAILY PRN (Reason: Pain) vitamin P32-vizml acid 0.5-1 mg Tablet 1 tab PO DAILY Trelegy Ellipta 200-62.5-25 mcg Blister With Device 1 inh INHALATION DAILY atorvastatin 80 mg tablet 80 mg PO BEDTIME hydrocodone-acetaminophen 5-325 mg tablet 1 tab PO BID PRN (Reason: Pain) immzlkceqr-whaaexsxqujsx-ufja 50-325-40 mg tablet 1 tab PO DAILY PRN (Reason: Headache) hyoscyamine sulfate 0.125 mg tablet 0.125 - 0.25 mg PO Q4-6H PRN (Reason: Abdominal Discomfort) gabapentin 300 mg capsule 1,200 mg PO TID oxcarbazepine 600 mg tablet 600 mg PO BID lorazepam 1 mg tablet 1 mg PO DAILY PRN (Reason: Anxiety) duloxetine 60 mg capsule,delayed release(DR/EC) 60 mg PO BID amlodipine 5 mg Tablet 5 mg PO DAILY Qty: 90 0RF Protocol: Hold for SBP< HOLD for SBP < : 90 aspirin 81 mg Tablet,Delayed Release (Dr/Ec) 81 mg PO DAILY Qty: 90 0RF (DME) nebulizer and compressor Device See Rx Instructions .Route Qty: 1 0RF Rx Instructions: As directed albuterol sulfate 90 mcg/actuation HFA aerosol inhaler 2 puff inhalation Q4H PRN (Reason: Shortness Of Breath Or Wheezing) prazosin 2 mg capsule 2 mg PO BEDTIME (DME) Oxygen Home Use Kit See Rx Instructions .ROUTE Rx Instructions: As directed Discharge Orders: Discharge Order (Routine); Ordered 02/16/24 Ordered By: Carlita Carlisle Diet: Advance to usual diet Activity on Discharge: As tolerated Stand Alone Forms: Patient Portal Discharge page Print Language: Czech Care Plan Goals: Use Nebulizer treatment every 4-6 hours while awake for the next 3 days then as needed Prednisone tapering dose as prescribed Oxygen supplement as needed Health Concerns: Read below Plan of Treatment: Read below Assessment: Read below
[2024-02-16 11:11] VITALS: PULSE 86; RESP 18; O2SAT 98
== END 2024-02-16 11:44 | disposition home health service (06) | DRG 140 ==
LOC: HO.ED 17:34 → HO.EDOVER 18:06 → HO.IMC 19:43
PROVIDERS: Admitting Provider Internal Medicine; Emergency Provider Emergency Medicine; PCP Registered Nurse; Visit Provider Student in an Organized Health Care Education/Training Program
DX: J44.1 Chronic obstructive pulmonary disease with (acute) exacerbation (principal); J96.21 Acute and chronic respiratory failure with hypoxia; Z99.81 Dependence on supplemental oxygen; F17.210 Nicotine dependence, cigarettes, uncomplicated; E78.2 Mixed hyperlipidemia; F43.10 Post-traumatic stress disorder, unspecified; F39 Unspecified mood [affective] disorder; I10 Essential (primary) hypertension; Z20.822 Contact with and (suspected) exposure to COVID-19; G50.0 Trigeminal neuralgia; Z71.6 Tobacco abuse counseling; Z86.73 Personal history of transient ischemic attack (TIA), and cerebral infarction without residual deficits; Z91.041 Radiographic dye allergy status; Z91.040 Latex allergy status; Z79.82 Long term (current) use of aspirin; Z79.899 Other long term (current) drug therapy
CPT/HCPCS: 0241U; 36415; 71045; 80048; 80076; 82803; 83735; 83880; 84484; 85025; 85027; 86140; 93005; 94640; 99285; J2919

== ENCOUNTER → 2024-02-14 17:49 | Outpatient (BNV) | payer BC, SELFPAY | PROVIDERS: Admitting Provider Internal Medicine; Emergency Provider Emergency Medicine; PCP Registered Nurse; Visit Provider Internal Medicine | DX: J44.1 Chronic obstructive pulmonary disease with (acute) exacerbation (principal) | CPT/HCPCS: 99223; 99231; 99239 ==

== ENCOUNTER → 2024-02-17 08:26 | Outpatient (REF) | payer BC, SELFPAY ==
--- NOTE | ~2024-02-17 | NM_ITS ---
Lexiscan Myocardial perfusion study Indication: Coronary artery disease Technique: The patient was brought in for a Lexiscan perfusion study on 02/17/2024 and was injected 0.4 mg of Lexiscan intravenously. Within a minute of this injection 30 mCi of sestamibi was given intravenously. Images were obtained using the SPECT gamma camera interlaced with the gating device. Images were obtained in supine position. Resting perfusion study was performed on 02/18/2024. Patient was administered 30 mCi of sestamibi intravenously at rest. Images were then obtained in supine position. Total DLP 141 mGy-cm. Images were processed with the software and compared side to side in short axis, horizontal long axis and vertical long axis views. Findings: Raw aquisition reviewed. Arms by the patient's side The stress perfusion study showed diminished tracer uptake along the anterior wall. There is improved uptake with CT attenuation correction suggestive of soft tissue attenuation artifact. The gated study shows calculated LVEF of 46%, but visually appears normal. LV cavity is normal in size. The gated study shows normal wall thickening and contraction of segments. Resting study shows mildly diminished tracer uptake in the distal part of anterior wall. There is some improvement with CT attenuation correction. Gating at rest reveals normal wall motion with ejection fraction at 48%, but visually appears normal. The findings are consistent with mild fixed distal anterior defect; no clearly reversible defects. LA/LA cardiolite stress test Impression: 1. Myocardial perfusion imaging study shows no clear evidence of ischemia. Mild fixed distal anterior defecty, which could be related to soft tissue attenuation artifact. Less likely nontransmural infarct. 2. Gated LVEF is 46% during stress and 48% during rest but visually appears much higher. Correlate with echocardiogram. 3. Transient ischemic dilatation not present. EKG component of the test reported separately. Electronically signed by: Wilfredo Bhatti MD 02/20/2024 01:25 PM EDT
--- NOTE | 2024-02-17 08:40 | CA_ITS ---
Acquisition Time: 2024-02-17 09:02:41 Total Exercise Time: 00:02:00 Test Indications: J44.1, R79.89, J96.11 Medications: SEE H Protocol: LEXISCAN Max HR: 100 BPM 62% of Pred: 159 BPM Max BP: 148/064 mmHG Max Work Load: 1.0 METS Pharmacological stress test with Lexiscan injection, while sitting and kicking her legs, with mild sob, no chest discomfort, with isolated PVC and rare cuplet, with normotensive response to injection, with nondiagnostic EKG for ischemia. In recovery she was treated with Aminophylline 75 mg IVP to reverse Lexiscan. Nuclear images pending. Test reviewed with Dr Bhatti. Referred By: Vladimir Thurman Overread By: MARITZA THOMPSON
== END ==
LOC: HO.CARD 08:26
PROVIDERS: PCP Registered Nurse; Visit Provider Internal Medicine Cardiovascular Disease
DX: R79.89 Other specified abnormal findings of blood chemistry (principal); J96.11 Chronic respiratory failure with hypoxia; J44.1 Chronic obstructive pulmonary disease with (acute) exacerbation; I10 Essential (primary) hypertension; J96.21 Acute and chronic respiratory failure with hypoxia
CPT/HCPCS: 78452; 93017; A9500; J0280; J2785

== ENCOUNTER → 2024-02-17 08:40 | Outpatient (BNV) | payer BC, SELFPAY | PROVIDERS: PCP Registered Nurse; Visit Provider Nurse Practitioner Family | DX: I25.10 Atherosclerotic heart disease of native coronary artery without angina pectoris (principal) | CPT/HCPCS: 78452; 93016; 93018 ==

== ENCOUNTER 2024-02-24 13:21 | Outpatient (AMB) | payer BC, SELFPAY ==
--- NOTE | 2024-02-24 13:23 | A.OFFVIS_ITS ---
Vital Signs 02/24/24 13:24 02/24/24 14:01 Height 5 ft 1 in Weight 188 lb 4 oz BMI 35.6 BMI Reason not done Patient refused/unable BP 138/70 132/64 Blood Pressure Location Lt brachial Lt brachial Position Sitting Sitting Pulse 72 Pulse Source Pulse Oximeter Intake Visit Reasons: c dc fu Allergies Iodinated Contrast Media [IV CONTRAST] Allergy (Intermediate, Verified 02/24/24 13:57) HIVES latex [LATEX] Allergy (Unknown, Verified 02/24/24 13:57) RASH morphine [MORPHINE] Adverse Reaction (Unknown, Verified 02/24/24 13:57) VOMITING Medication List - Last Reconciled 02/24/24 by Mackenzie Triplett NP albuterol sulfate 90 mcg/actuation 2 puffs inhalation Q4H PRN aspirin 81 mg PO DAILY atorvastatin 80 mg PO BEDTIME baclofen 15 mg PO TID vmzzifqoww-pkvnsixxurqex-yixx 50-325-40 mg 1 tab PO DAILY PRN duloxetine 60 mg PO BID ijymxekaidu-brlbtahvi-cmdcqhuh 200-62.5-25 mcg (Trelegy Ellipta) 1 inh inhalation DAILY furosemide (Lasix) 20 mg PO DAILY gabapentin 1,200 mg PO TID guaifenesin 200 mg (10 mL) PO Q6H hydrocodone-acetaminophen 5-325 mg 1 tab PO BID PRN hyoscyamine sulfate 0.125 - 0.25 mg PO Q4-6H PRN ipratropium-albuterol 0.5 mg-3 mg(2.5 mg base)/3 mL 3 mL inhalation RQ4H WHILE AWAKE PRN 90 days lidocaine 4% 1 appl topical DAILY PRN lorazepam 1 mg PO DAILY PRN nebulizer and compressor As directed oxcarbazepine 600 mg PO BID Oxygen Home Use As directed prazosin 2 mg PO BEDTIME prednisone See Taper mg PO DAILY verapamil 120 mg PO BID vitamin C09-ezbof acid 0.5-1 mg 1 tab PO DAILY HPI Comments Details: 59-year-old female presents today for hospital discharge. She was seen in the hospital on 02/14/2024 due to COPD exacerbation. She had seen cardiology inpatient back in December due to NSTEMI and dyspnea on exertion. She reports her shortness of breath is chronic and has remained about the same and that she is due to see pulmonary. She is on oxygen. She denies any chest pains or shortness or breath. She is trying to quit smoking and is cutting back. Reports most blood pressures are between 130s-140. [facility] Medical History Smoker JUANITO (obstructive sleep apnea) Allergies Hypertension Elevated troponin COPD (chronic obstructive pulmonary disease) Chronic hypercapnic respiratory failure Trigeminal neuralgia Pulmonary nodules Mixed hyperlipidemia Peripheral neuropathy Tobacco use disorder Mood disorder Surgical History History of esophagogastroduodenoscopy (EGD) History of colonoscopy History of lumbar discectomy History of tubal ligation History of excision of mass History of shoulder surgery Social History Household Members: Spouse Housing: House Do you presently have visiting nurse or other home services: Yes Alcohol intake: current Alcohol intake frequency: holidays/special occasions only Alcohol type: wine Comment: pt refuses bed alarm. Patient Tobacco Use Status: Current everyday Tobacco user Tobacco use type: Cigarette Cigarette Packs Per Day: 1 Cigarettes Per Day: 20.0 Years Smoked: 40 e-Cigarette/Vaping Use: Never Used Second Hand Smoke Exposure: No Substance Use Type: Marijuana Advance Directives Date on File: 03/09/23 service: No Review of Systems Const Denies weakness ENT Denies dizziness Card Denies chest pain, Denies chest pain with activity, Denies syncope, Denies rapid heart rate, Denies pedal edema, Denies edema, Denies leg edema, Denies lightheadedness, Denies palpitations, Denies dyspnea, Denies dyspnea on exertion and Denies orthopnea Resp Denies cough, Denies dyspnea and Denies dyspnea on exertion GI Denies hematochezia and Denies change in stool character Musc Denies abnormal gait, Denies muscle cramps, Denies muscle weakness, Denies numbness, Denies radiating pain into limb and Denies tingling Neuro Denies abnormal gait, Denies dizziness, Denies syncope, Denies numbness, Denies tingling and Denies weakness Endo Denies palpitations Physical Exam Vital Signs: Last Vital Signs Pulse 72 02/24/24 13:24 BP 132/64 02/24/24 14:01 BMI result Body Mass Index 35.6 Const General: healthy appearing and no acute distress Orientation/consciousness: patient oriented x3 HEENT Head: Yes normal to inspection Eyes General: appearance normal, both eyes and all related structures Neck Neck: Yes normal visual inspection Chest Chest palpation & inspection: normal inspection of the chest Resp Other: On supplemental oxygen. Effort & Inspection: normal respiratory effort Auscultation: clear to auscultation bilaterally Cardio Jugular venous distension: no JVD Palpation: normal PMI Rate: regular rate Rhythm: regular rhythm Heart sounds: S1 normal heart sound present, S2 normal heart sound present, no click, no gallops, no murmurs and no rubs GI Inspection: Yes normal to inspection Palpation (GI): Soft to palpation Skin General skin exam: no rashes or lesions noted Neuro General: patient oriented x3 Extrem General: Yes normal to inspection Psych Appearance: grossly normal Results Reviewed Results Reviewed: NM/NM cardiolite stress test Impression: 1. Myocardial perfusion imaging study shows no clear evidence of ischemia. Mild fixed distal anterior defecty, which could be related to soft tissue attenuation artifact. Less likely nontransmural infarct. 2. Gated LVEF is 46% during stress and 48% during rest but visually appears much higher. Correlate with echocardiogram. 3. Transient ischemic dilatation not present. Assessment & Plan Assessment & Plan (1) NSTEMI (non-ST elevated myocardial infarction): Code(s): I21.4 - Non-ST elevation (NSTEMI) myocardial infarction Category: Medical Plan: Back in December suspected to be from to demand with acute hypoxemic respiratory failure. She was switched from amlodipine to verapamil 120 mg b.i.d. Avoid beta- ed therapy due to severe obstructive airway disease. Myocardial perfusion imaging showed no clear evidence of ischemia. Echocardiogram showed Hyperdynamic LV EF greater than 70% without any regional wall motion abnormality and mild aortic stenosis Continue aspirin, high-intensity statin therapy. Will request recent lab work from PCP. (2) Hypertension: Code(s): I10 - Essential (primary) hypertension Category: Medical Qualifiers: Hypertension type: primary hypertension Qualified Code(s): I10 - Essential (primary) hypertension Plan: Blood pressure today is acceptable. Advised to monitor blood pressures at home and bring a log to next visit. She is on verapamil 120mg BID. (3) Smoker: Code(s): F17.200 - Nicotine dependence, unspecified, uncomplicated Category: Social Hx Plan: advised complete smoking cessation. Coding Level of Care Code Est Pt Level 4 (29095) Diagnoses NSTEMI (non-ST elevated myocardial infarction) I21.4 Primary hypertension I10 Hypertension type: primary hypertension Smoker F17.200
[2024-02-24 13:24] VITALS: BP 138/70; PULSE 72; BMI 35.6
[2024-02-24 14:01] VITALS: BP 132/64
== END 2024-02-24 14:08 | disposition home or self-care (01) ==
PROVIDERS: PCP Registered Nurse; Visit Provider Nurse Practitioner
DX: I21.4 Non-ST elevation (NSTEMI) myocardial infarction (principal); I10 Essential (primary) hypertension; F17.200 Nicotine dependence, unspecified, uncomplicated
CPT/HCPCS: 99214

== ENCOUNTER → 2024-02-24 13:21 | Outpatient (BNVA) | payer BC, SELFPAY | PROVIDERS: PCP Registered Nurse; Visit Provider Nurse Practitioner | DX: I21.4 Non-ST elevation (NSTEMI) myocardial infarction (principal); I10 Essential (primary) hypertension; F17.210 Nicotine dependence, cigarettes, uncomplicated; Z79.82 Long term (current) use of aspirin; Z79.899 Other long term (current) drug therapy ==

== ENCOUNTER 2024-02-29 07:47 | Outpatient (REF) | payer BC, SELFPAY ==
[2024-02-29 08:17] LABS: MANUAL DIFF FLAG NO
[2024-02-29 08:23] LABS: Basophils Percent Auto 0.4 % (0-2); Eosinophils Absolute Auto 0.3 X10*3/uL (0.0-0.4); Eosinophils Percent Auto 2.3 % (0-4); Hematocrit 44.8 % (37.0-47.0); Hemoglobin 14.4 g/dl (12.0-16.0); Imm Gran Abs Auto 0.06 X10*3/uL (0.00-0.03); Imm Gran Pct Auto 0.5 % (0.0-0.4); Lymphocytes Absolute Auto 1.7 X10*3/uL (1.2-4.9); Lymphocytes Percent Auto 14.9 % (20-40); Mean Corpuscular HGB Conc 32.1 g/dl (31.0-35.0); Mean Corpuscular Hemoglobin 32.8 pg (27.0-33.0); Mean Corpuscular Volume 102.1 fL (80.0-98.0); Mean Platelet Volume 9.3 fL (9.4-12.3); Monocytes Absolute Auto 1.2 X10*3/uL (0.1-1.2); Monocytes Percent Auto 10.6 % (2-11); Neutrophils Absolute Auto 7.9 x10*3/uL (2.0-8.3); Neutrophils Percent Auto 71.3 % (45-73); Platelet Count 336 X10*3/uL (160-400); Red Blood Count 4.39 X10*6/uL (4.20-5.50); Red Cell Distribution Width 14.8 % (11.0-16.0); White Blood Count 11.1 X10*3/uL (4.8-10.8)
[2024-02-29 08:56] LABS: Anion Gap 15 (12-20); Blood Urea Nitrogen 19 mg/dL (9-16); Calcium 10.3 mg/dL (8.4-10.2); Carbon Dioxide 31 mmol/L (22-29); Chloride 103 mmol/L (96-108); Cholesterol 248 mg/dL (<200); Estimated Glomerular Filt Rate > 60; Glucose Random 113 mg/dL (60-115); HDL Cholesterol 84 mg/dL (>40); LDL Cholesterol Calculated 119 mg/dL (<100); Potassium 3.7 mmol/L (3.3-5.1); Sodium 145 mmol/L (135-145); Triglycerides 227 mg/dL (<150)
[2024-03-02 07:02] LABS: IgA 155 mg/dL (70-320); IgG 356 mg/dL (600-1540); IgM 38 mg/dL (50-300)
[2024-03-02 12:23] LABS: Anti Nuclear Antibody Screen NEGATIVE (NEGATIVE)
[2024-03-03 16:14] LABS: Class Alternaria alternata 0; Class Aspergillus fumigatus 0; Class Bermuda Grass 0; Class Birch 0; Class Cat Dander 0; Class Cladosporium herbarum 0; Class Cockroach 0; Class Common Ragweed 0/1; Class Cottonwood 0; Class Derm. pterony 0; Class Dermatophagoides farinae 0; Class Dog Dander 0; Class Elm 0; Class Maple Box Elder 0; Class Mountain Cedar 0; Class Mouse Urine Protein 0; Class Mugwort 0; Class Oak 0; Class Penicillium crysogenum 0; Class Rough Pigweed 0; Class Sheep Sorrel 0; Class Sycamore 0; Class Timothy Grass 0; Class Walnut Tree 0; Class White Ash 0; Class White Mulberry 0; D001 IgE D pteronyssinus <0.10 kU/L; D002 - IgE D farinae <0.10 kU/L; E001 - IgE Cat Dander <0.10 kU/L; E005 - IgE Dog Dander <0.10 kU/L; E072-IgE Mouse Urine <0.10 kU/L; G002 IgE Bermuda Grass <0.10 kU/L; G006 - IgE Timothy Grass <0.10 kU/L; I006-IgE Cockroach, German <0.10 kU/L; Immunoglobulin E 247 kU/L (<OR=114); M001 IgE Penicillium chrysogen <0.10 kU/L; M002 - IgE Cladosporium herbar <0.10 kU/L; M003 - IgE Aspergillus fumigat <0.10 kU/L; M006 - IgE Alternaria alternat <0.10 kU/L; T001 IgE Maple/Box Elder <0.10 kU/L; T003 IgE Common Silver Birch <0.10 kU/L; T006 - IgE Cedar, Mountain <0.10 kU/L; T007 - IgE Oak, White <0.10 kU/L; T008 IgE Elm, American <0.10 kU/L; T010 - IgE Walnut <0.10 kU/L; T011 - IgE Maple Leaf Sycamore <0.10 kU/L; T014 - IgE Cottonwood <0.10 kU/L; T015 - IgE Ash, White <0.10 kU/L; T070 - IgE White Mulberry <0.10 kU/L; W001 - IgE Ragweed, Short 0.12 kU/L; W006 - IgE Mugwort <0.10 kU/L; W014 IgE Pigweed, Common <0.10 kU/L; W018 IgE Sheep Sorrel <0.10 kU/L
== END 2024-02-29 07:48 | disposition home or self-care (01) ==
LOC: HO.LAB 07:47
PROVIDERS: Absent Provider Nurse Practitioner; PCP Registered Nurse; Visit Provider Hospitalist
DX: T78.40XA Allergy, unspecified, initial encounter (principal); J45.909 Unspecified asthma, uncomplicated; I21.4 Non-ST elevation (NSTEMI) myocardial infarction; R91.1 Solitary pulmonary nodule
CPT/HCPCS: 36415; 80048; 80061; 82784; 82785; 85025; 86003; 86038

== ENCOUNTER → 2024-03-02 19:30 | Outpatient (REF) | payer BC, SELFPAY | LOC: HO.SL 19:30 | PROVIDERS: PCP Registered Nurse; Visit Provider Hospitalist | DX: G47.33 Obstructive sleep apnea (adult) (pediatric) (principal) | CPT/HCPCS: 95810 ==

== ENCOUNTER → 2024-03-02 23:08 | Outpatient (BNV) | payer BC, SELFPAY | PROVIDERS: PCP Registered Nurse; Visit Provider Internal Medicine | DX: G47.33 Obstructive sleep apnea (adult) (pediatric) (principal) | CPT/HCPCS: 95810 ==

== ENCOUNTER 2024-03-10 10:21 | Outpatient (AMB) | payer BC, SELFPAY ==
[2024-03-10 10:22] VITALS: BP 152/70; PULSE 82; O2SAT 94; BMI 36.0
--- NOTE | 2024-03-10 10:22 | MHC.OFFVIS ---
Vital Signs 03/10/24 10:22 Height 5 ft 1 in Weight 190 lb 8 oz BMI 36.0 BP 152/70 H Blood Pressure Location Lt brachial Position Sitting Pulse 82 Pulse Source Pulse Oximeter Pulse Oximetry (%) 94 Oxygen Delivery Method Nasal Cannula Oxygen Flow Rate 4 Intake Visit Reasons: COPD Follow Up Allergies Iodinated Contrast Media [IV CONTRAST] Allergy (Intermediate, Verified 03/10/24 12:06) HIVES latex [LATEX] Allergy (Unknown, Verified 03/10/24 12:06) RASH morphine [MORPHINE] Adverse Reaction (Unknown, Verified 03/10/24 12:06) VOMITING HPI HPI COPD Follow Up: Details: Zulma is a pleasant 59 year old female, current smoker, with underlying COPD, h/o acute respiratory failure, HTN and pulmonary nodules. She is under the care of Dr. Henriquez and presents today for an acute visit. She has been admitted multiple times over the last few months for acute respiratory failure with hypoxia. She was last admitted 02/13-02/15, discharged with prednisone and mucinex. Since discharge she feels respiratory symptoms are worsening. Using neb 3-4 times per day with minimal effect. She reports worsening dyspnea on minimal exertion, using 3L of supplemental oxygen at rest and 4L with exertion. She also notes worsening BLE edema, previously prescribed lasix. [facility] Medical History Smoker JUANITO (obstructive sleep apnea) Allergies Hypertension Elevated troponin COPD (chronic obstructive pulmonary disease) Chronic hypercapnic respiratory failure Trigeminal neuralgia Pulmonary nodules Mixed hyperlipidemia Peripheral neuropathy Tobacco use disorder Mood disorder Surgical History History of esophagogastroduodenoscopy (EGD) History of colonoscopy History of lumbar discectomy History of tubal ligation History of excision of mass History of shoulder surgery Social History Household Members: Spouse Housing: House Do you presently have visiting nurse or other home services: Yes Alcohol intake: former Comment: pt refuses bed alarm. Patient Tobacco Use Status: Current everyday Tobacco user Tobacco use type: Cigarette Cigarette Packs Per Day: 1 Cigarettes Per Day: 20.0 Years Smoked: 40 Smoked in Last 30 Days: Yes e-Cigarette/Vaping Use: Never Used Second Hand Smoke Exposure: No Use of substances other than those prescribed or required for medical reasons: No Substance Use Type: Marijuana Advance Directives: Yes Advance Directives on File: Yes Advance Directives Date on File: 03/09/23 Do you have a plan to hurt others: No Plan service: No Review of Systems Const Denies chills, Denies excessive sweating, Denies fever(s), Denies headache(s) and Denies night sweats Eyes Denies dry eyes, Denies irritation and Denies itchy eyes ENT Reports Normal hearing present, Denies headache(s), Denies nasal congestion, Denies nasal discharge, Denies post nasal drip and Denies sore throat Card Denies chest pain, Denies chest pain at rest, Denies chest pain with activity, Reports pedal edema, Reports dyspnea on exertion and Denies paroxysmal nocturnal dyspnea Resp Denies chest congestion, Reports cough, Denies excessive phlegm production, Denies pain on inspiration, Denies pain with cough, Reports dyspnea on exertion, Denies stridor and Reports wheezing Musc Denies myalgias Neuro Reports Normal hearing present and Denies headache(s) Endo Denies excessive sweating Luis/Lymph Denies lymphadenopathy Aller/Immun Denies itchy eyes, Denies seasonal rhinorrhea and Reports wheezing Physical Exam Vital Signs: Last Vital Signs Pulse 82 03/10/24 10:22 BP 152/70 H 03/10/24 10:22 Pulse Ox 94 03/10/24 10:22 Oxygen Delivery Method Nasal Cannula 03/10/24 10:22 Oxygen Flow Rate 4 03/10/24 10:22 BMI result Body Mass Index 36.0 Const General: cooperative and alert Nutritional Appearance: obese Orientation/consciousness: patient oriented x3 HEENT Head: Yes normal to inspection, Yes normocephalic and Yes atraumatic Ears: hearing grossly normal bilaterally and external ears normal Eyes General: appearance normal, both eyes and all related structures Eyelids: Yes eyelids normal Sclerae: sclerae normal EOM: EOMs intact bilaterally Neck Neck: Yes normal visual inspection and Yes no lymphadenopathy Lymphatic: no lymphadenopathy noted Chest Chest palpation & inspection: normal inspection of the chest Resp Effort & Inspection: able to speak in complete sentences (occasionally unable to complete sentences), audible wheezes, Actively coughing, labored, no stridor, tachypneic and uses accessory muscles Auscultation: crackles (bibasilar) and wheezes (minimal improvement after duoneb) expiratory wheezes Cardio Jugular venous distension: no JVD Rate: regular rate Rhythm: regular rhythm Skin Other: warm, dry General skin exam: no rashes or lesions noted Neuro General: patient oriented x3 Cranial nerves: Yes Normal hearing present Cognition (Neuro): normal cognition Gait exam (Neuro): Normal gait present Extrem Other: 2+ pedal edema Psych Appearance: grossly normal Speech and movement: Normal speech and movement present and Clear speech present Affect: normal affect Attitude: cooperative Thought process: Normal thought process present Thought content: Normal thought content present Insight: Good insight present (Psych) Judgement: Good judgement present (Psych) Assessment & Plan Assessment & Plan (1) Asthma: Code(s): J45.909 - Unspecified asthma, uncomplicated Category: Medical Qualifiers: Asthma severity: severe Asthma persistence: persistent Asthma complication type: with acute exacerbation Qualified Code(s): J45.51 - Severe persistent asthma with (acute) exacerbation (2) JUANITO (obstructive sleep apnea): Code(s): G47.33 - Obstructive sleep apnea (adult) (pediatric) Category: Medical (3) Tobacco use disorder: Code(s): F17.200 - Nicotine dependence, unspecified, uncomplicated Category: Medical (4) COPD (chronic obstructive pulmonary disease): Code(s): J44.9 - Chronic obstructive pulmonary disease, unspecified Category: Medical Qualifiers: COPD type: chronic bronchitis Chronic bronchitis type: simple Qualified Code(s): J41.0 - Simple chronic bronchitis (5) Pulmonary nodules: Code(s): R91.8 - Other nonspecific abnormal finding of lung field Category: Medical (6) Allergies: Code(s): T78.40XA - Allergy, unspecified, initial encounter Category: Medical Qualifiers: Encounter type: initial encounter Qualified Code(s): T78.40XA - Allergy, unspecified, initial encounter Plan Reviewed importance of smoking cessation. Reportedly trialed wellbutrin and multiple NRT with no effect. She did note that Nicorette minis have been effective in the past, will send these in. She also reported vaping THC. Discussed importance stopping immediately. Patient with labored breathing, accessory muscle use, audible wheezing, expiratory wheezing throughout, bibasilar inspiratory crackles, 2+ BLE edema. She is requiring 3 liters at rest 4L with exertion, desatted to 84% on 3L with exertion, recovering quickly to 92%. Discussed with patient treating on an outpatient basis versus ED evaluation. Consider echo in the future. After discussion, patient agreeable to ED evaluation. Will have close follow up in 1-2 weeks outpatient. Medications: New nicotine (polacrilex) (Nicorette) 4 mg buccal Q4-8H PRN 81 ea 0RF nicotine cravings Coding Level of Care Code Est Pt Level 5 (70741) Diagnoses Severe persistent asthma with acute exacerbation J45.51 Asthma severity: severe Asthma persistence: persistent Asthma complication type: with acute exacerbation JUANITO (obstructive sleep apnea) G47.33 Tobacco use disorder F17.200 Simple chronic bronchitis J41.0 COPD type: chronic bronchitis Chronic bronchitis type: simple Pulmonary nodules R91.8 Allergy, initial encounter T78.40XA Encounter type: initial encounter Time Spent (min) 50
== END 2024-03-10 11:29 | disposition home or self-care (01) ==
PROVIDERS: PCP Registered Nurse; Visit Provider Nurse Practitioner Family
DX: J45.51 Severe persistent asthma with (acute) exacerbation (principal); G47.33 Obstructive sleep apnea (adult) (pediatric); F17.200 Nicotine dependence, unspecified, uncomplicated; J41.0 Simple chronic bronchitis; R91.8 Other nonspecific abnormal finding of lung field; T78.40XA Allergy, unspecified, initial encounter
CPT/HCPCS: 99215

== ENCOUNTER → 2024-03-10 10:21 | Outpatient (BNVA) | payer BC, SELFPAY | PROVIDERS: PCP Registered Nurse; Visit Provider Nurse Practitioner Family ==

== ENCOUNTER 2024-03-10 11:56 | Inpatient (IN) | payer BC, MEDICARE, SELFPAY ==
[2024-03-10] VITALS (7 sets, daily range): BP systolic 147–150; BP diastolic 70–71; PULSE 73–90; RESP 14–34; TEMP 36.1–36.5; O2SAT 93–99; BMI 35.6; BMI 36.7
--- NOTE | ~2024-03-10 | XR_ITS ---
EXAMINATION: XR CHEST CLINICAL INFORMATION: Shortness of breath. COMPARISON: Chest radiograph dated 02/14/2024. TECHNIQUE: Frontal view of the chest was obtained. FINDINGS: The heart is normal in size. Both lungs are clear. No consolidation. Pulmonary vasculature is normal in appearance. No pleural effusion. No pneumothorax. No acute osseous abnormality. XR/XR chest 1V IMPRESSION: No acute cardiopulmonary disease. Electronically signed by: Declan Byrd DO 03/10/2024 02:35 PM EDT
--- NOTE | 2024-03-10 11:57 | ED.SOB ---
HPI - SOB/Dyspnea General Chief Complaint: Dyspnea Stated Complaint: sob Time Seen by Provider: 03/10/24 12:00 Source: patient Mode of arrival: wheelchair Limitations: other History of Present Illness ED Provider: Dr. Harjeet Cardoza HPI Narrative: 59-year-old female past medical history significant for COPD still a smoker. Patient has been admitted here 9 times this summer was recently discharged earlier this month patient has to [place] to her steroid taper approximately 7 days ago and started smoking again followed up with her information technology officer and was sent here for worsening shortness of breath found to be 75% on room air on triage and brought immediately back to her room Respiratory to mucus in the room patient was started on breathing treatments immediately MD elicited complaint: shortness of breath and cough Related Data Home Medications ?Medication ?Instructions ?Recorded ?Confirmed atorvastatin 80 mg tablet 80 mg PO BEDTIME 03/04/23 02/14/24 [id number]-[id number]-sybnhran 1 tab PO DAILY PRN Headache 03/04/23 02/14/24 50 mg-325 mg-40 mg tablet duloxetine 60 mg capsule,delayed 60 mg PO BID 03/04/23 02/14/24 release gabapentin 300 mg capsule 1,200 mg PO TID 03/04/23 02/14/24 hydrocodone 5 mg-acetaminophen 325 1 tab PO BID PRN Pain 03/04/23 02/14/24 mg tablet hyoscyamine sulfate 0.125 mg tablet 0.125 - 0.25 mg PO Q4-6H PRN 03/04/23 02/14/24 Abdominal Discomfort lorazepam 1 mg tablet 1 mg PO DAILY PRN Anxiety 03/04/23 02/14/24 oxcarbazepine 600 mg tablet 600 mg PO BID 03/04/23 02/14/24 Oxygen Home Use 04/16/23 12/23/23 prazosin 2 mg capsule 2 mg PO BEDTIME 04/16/23 02/14/24 baclofen 15 mg tablet 15 mg PO TID 01/10/24 02/14/24 lidocaine 4 % topical cream 1 appl topical DAILY PRN Pain 01/17/24 02/14/24 vitamin B12 0.5 mg-folic acid 1 mg 1 tab PO DAILY 01/18/24 02/14/24 tablet albuterol sulfate 90 mcg/actuation 2 puff inhalation Q4H PRN 01/31/24 02/14/24 aerosol inhaler Shortness Of Breath Or Wheezing fluticasone fur. 200 mcg-umeclid 1 inh inhalation DAILY 02/14/24 02/14/24 62.5 mcg-vilant 25 mcg inhalat.powder (Trelegy Ellipta) Previous Rx's ?Medication ?Instructions ?Recorded aspirin 81 mg tablet,delayed 81 mg PO DAILY #90 tabs 12/16/23 release nebulizer and compressor #1 ea 12/16/23 furosemide 20 mg tablet (Lasix) 20 mg PO DAILY #7 tabs 01/10/24 verapamil 120 mg tablet 120 mg PO BID #60 tabs 01/24/24 guaifenesin 100 mg/5 mL oral liquid 200 mg (10 mL) PO Q6H #473 mL 02/16/24 prednisone 10 mg tablet See Taper PO DAILY #30 tabs 02/16/24 ipratropium 0.5 mg-albuterol 3 mg 3 ml inhalation Q4H PRN for 03/02/24 (2.5 mg base)/3 mL nebulization dyspnea #180 mL soln nicotine (polacrilex) 4 mg buccal 4 mg buccal Q4-8H PRN nicotine 03/10/24 mini lozenge (Nicorette) cravings #81 ea Allergies Allergy/AdvReac Type Severity Reaction Status Date / Time Iodinated Contrast Media Allergy Intermediate HIVES Verified 03/10/24 12:06 [IV CONTRAST] latex [LATEX] Allergy Unknown RASH Verified 03/10/24 12:06 morphine [MORPHINE] AdvReac Unknown VOMITING Verified 03/10/24 12:06 Review of Systems Review of Systems: Review of systems: General: Patient denies any fever chills recent illness or falls Musculoskeletal: Denies back pain or body aches or other injuries HEENT: denies headache, runny nose, ear pain Respiratory: shortness of breath, cough Cardiovascular: no chest pain or palpitations : denies dysuria, frequency Abdomen: no nausea vomiting denies abdominal pain Extremities: no swelling, no pain Skin: no diaphoresis Yes all other systems are reviewed and are negative [facility] Past Medical History Medical History Smoker JUANITO (obstructive sleep apnea) Allergies Hypertension Elevated troponin COPD (chronic obstructive pulmonary disease) Chronic hypercapnic respiratory failure Trigeminal neuralgia Pulmonary nodules Mixed hyperlipidemia Peripheral neuropathy Tobacco use disorder Mood disorder Surgical History History of esophagogastroduodenoscopy (EGD) History of colonoscopy History of lumbar discectomy History of tubal ligation History of excision of mass History of shoulder surgery Social History Social History Household Members: Spouse Housing: House Do you presently have visiting nurse or other home services: Yes Alcohol intake: former Comment: pt refuses bed alarm. Patient Tobacco Use Status: Current everyday Tobacco user Tobacco use type: Cigarette Cigarette Packs Per Day: 1 Cigarettes Per Day: 20.0 Years Smoked: 40 Smoked in Last 30 Days: Yes e-Cigarette/Vaping Use: Never Used Second Hand Smoke Exposure: No Use of substances other than those prescribed or required for medical reasons: No Substance Use Type: Marijuana Advance Directives: Yes Advance Directives on File: Yes Advance Directives Date on File: 03/09/23 Do you have a plan to hurt others: No Plan service: No Physical Exam Vital Signs: Vital Signs: Last Vital Signs Pulse 75 03/10/24 13:20 Resp 20 03/10/24 13:20 Pulse Ox 96 03/10/24 12:03 O2 Del Method Oxymask 03/10/24 12:03 Oxygen Flow Rate 15 03/10/24 12:03 BMI result Body Mass Index 35.6 General: Tripoding ill-appearing in moderate signs of distress HEENT: Normocephalic atraumatic Neck: No signs of JVD, no masses no tenderness or lymphadenopathy Cardiovascular: Regular rate and rhythm Respiratory: Diminished bilaterally Abdomen: Soft nontender no masses Extremities: Normal pedal pulses no signs of edema Skin: Dry warm no rashes Back: No tenderness full ROM Course Course Course Narrative: This is a Rapid Medical Exam performed in triage by Paola Pinzon PA-C. Full HPI, ROS and PE to be performed by primary ED provider. 59 yo F medical history of COPD on 3 L NC at baseline, 4 L with exertion, JUANITO, HLD, sent to ED from pulmonology office due to hypoxia, patient was 84% on 3 L in office [employer]OR [employer]. Patient 85% on 4 L NC in triage, tachypneic, talking in short sentences PE: Diminished lung sounds throughout with expiratory wheeze. Plan: EKG, labs, viral studies, lactic/blood cultures, CXR Reevaluation(s) Reevaluation #1: X-ray and labs were all unremarkable patient is feeling better decreased breathing treatments. She is moving a little bit more air at this time but still very wheezy. With a normal XR and labs I feel she needs more breathing treatments and steroids. She would like admission. Time: 13:30 Reevaluation #2: I did here back from the medicine team who were agreeable to admitting the patient. Time: 14:46 Medications Administered Discontinued Medications Generic Name Dose Route Start Last Admin Trade Name Katya PRN Reason Stop Dose Admin Baclofen 15 mg 03/10/24 14:24 03/10/24 14:34 Baclofen 10 Mg Tablet PO 03/10/24 14:25 15 mg ONCE ONE Administration Albuterol Sulfate 7.5 mg/ 0 mg 03/10/24 12:06 03/10/24 12:11 Albuterol/Ipratropium 3 ml INHALE 03/10/24 12:07 1 each ONCE ONE Administration Albuterol Sulfate 2.5 mg/ 0 mg 03/10/24 13:17 03/10/24 13:19 Albuterol/Ipratropium 3 ml INHALE 03/10/24 13:18 1 dose ONCE ONE Administration Gabapentin 1,200 mg 03/10/24 14:24 03/10/24 14:35 Gabapentin 600 Mg Tablet PO 03/10/24 14:25 1,200 mg ONCE ONE Administration Magnesium Sulfate/Dextrose 1 gm in 100 mls @ 100 mls/hr 03/10/24 13:35 03/10/24 13:53 Magnesium Sulfate/D5w IV 03/10/24 14:34 100 mls/hr ONCE ONE Administration Methylprednisolone Sodium Succinate 125 mg 03/10/24 13:35 03/10/24 13:53 Methylprednisolone Sod Succ 125 Mg/2 Ml Vial IVPUSH 03/10/24 13:36 125 mg ONCE ONE Administration Medical Decision Making Medical Decision Making MDM Narrative: COPD exacerbation start the patient breathing treatments good x-ray labs and reassess Differential Diagnosis Differential Diagnoses: The differential diagnosis associated with the presentation includes COPD exacerbation in extremis on arrival seen immediately and brought back to a room was started on breathing treatments the was started on medicine in the room COVID flu RSV Admission/Observation Consideration of admission/observation: Escalation of care including admission/observation considered Consult Healthcare Provider Management of the patient was discussed with: Hospitalist Lab Data MDM Lab Attestation statement: I reviewed the patient's lab results. 03/10/24 12:09 03/10/24 12:09 Labs: Lab Results 03/10/24 03/10/24 03/10/24 Range/Units 12:09 12:12 12:36 WBC 8.9 (4.8-10.8) X10*3/uL RBC 4.15 L (4.20-5.50) X10*6/uL Hgb 13.9 (12.0-16.0) g/dl Hct 42.2 (37.0-47.0) % MCV 101.7 H (80.0-98.0) fL MCH 33.5 H (27.0-33.0) pg MCHC 32.9 (31.0-35.0) g/dl RDW 14.6 (11.0-16.0) % Plt Count 338 (160-400) X10*3/uL MPV 9.0 L (9.4-12.3) fL Immature Gran % (Auto) 0.3 (0.0-0.4) % Neut % (Auto) 63.9 (45-73) % Lymph % (Auto) 23.5 (20-40) % [place] % (Auto) 11.2 H (2-11) % Eos % (Auto) 0.4 (0-4) % Baso % (Auto) 0.7 (0-2) % Lymph # (Auto) 2.1 (1.2-4.9) X10*3/uL [place] # (Auto) 1.0 (0.1-1.2) X10*3/uL Eos # (Auto) 0.0 (0.0-0.4) X10*3/uL Baso # (Auto) 0.1 (0.0-0.2) X10*3/uL Abs Immat Gran (auto) 0.03 (0.00-0.03) X10*3/uL Absolute Neuts (auto) 5.7 (2.0-8.3) x10*3/uL Absolute Nucleated RBC 0.000 (0.0-0.012) X10*3/uL Nucleated RBC % (auto) 0.0 (0.0-0.2) /100WBC PT 10.2 L (10.9-12.4) SEC INR 0.9 (0.9-1.1) Sodium 141 (135-145) mmol/L Potassium 4.5 D (3.3-5.1) mmol/L Chloride 104 (96-108) mmol/L Carbon Dioxide 30 H (22-29) mmol/L Anion Gap 12 (12-20) BUN 9 (9-16) mg/dL Creatinine 0.75 (0.5-1.4) mg/dL Estim Creat Clear Calc 78.1 Estimated GFR > 60 Random Glucose 92 (60-115) mg/dL Lactic Acid 1.0 (0.5-2.0) mmol/L Calcium 10.0 (8.4-10.2) mg/dL Magnesium 2.1 (1.6-2.6) mg/dL Total Bilirubin 0.3 (0.0-1.0) mg/dL Direct Bilirubin 0.2 (0.0-0.5) mg/dL AST 21 (5-31) U/L ALT 27 (0-31) U/L Alkaline Phosphatase 92 (39-117) U/L Troponin I High Sens 11.7 (<3.5-17.0) ng/L B-Natriuretic Peptide 62 (<100) pg/mL Total Protein 7.2 (6.5-8.0) g/dL Albumin 4.4 (3.5-5.0) g/dL Influenza Type A (PCR) NEGATIVE (Negative) Influenza Type B (PCR) NEGATIVE (Negative) RSV RNA Qual (PCR) NEGATIVE (Negative) SARS-CoV-2 RNA (RT-PCR) NEGATIVE (Negative) Independent Interpretation I performed an independent interpretation of an: EKG, Rhythm Strip and Plain X-Ray Interpretation: Rate 82 nsr normal intervals no signs of ischemia Radiology Impression Discussion of test interpretation with radiology: I discussed test interpretation with the radiologist and I have reviewed the radiologist's reading. Independent Historian Clinical information obtained from an independent historian. History obtained from or confirmed by: Spouse External Record Review External record reviewed: Inpatient record, Office record, Outpatient record, Prior outpatient labs, Prior outpatient radiology, Primary care record and Outside ED record Critical Care Time Critical Care Time Critical Care Time: Yes Total Critical Care Time: 35 Attestation: Acute COPD exacerbation with hypoxia requiring multiple evaluations patient seen immediately upon arrival started on breathing treatments steroids magnesium discussion with hospitalist Discharge Plan Discharge Clinical Impression: Chronic hypercapnic respiratory failure, Smoker, Acute exacerbation of chronic obstructive airways disease Patient Disposition: Admitted As Inpatient Print Language: Hungarian
--- NOTE | 2024-03-10 12:01 | ECG_ITS ---
Test Reason : SOB Blood Pressure : / mmHG Vent. Rate : 082 BPM Atrial Rate : 082 BPM P-R Int : 132 ms QRS Dur : 078 ms QT Int : 354 ms P-R-T Axes : 064 061 047 degrees QTc Int : 413 ms Normal sinus rhythm Normal ECG When compared with ECG of 14-FEB-2024 15:08, Premature ventricular complexes are no longer Present Premature atrial complexes are no longer Present Referred By: Paola Pinzon Electronically Signed By:KLAUDIA CLEMENS
[2024-03-10] MEDS: Albuterol Sulfate 7.5 MG, Albuterol/Iprat 2.5/0.5MG 3 ML 3 ML INHALE (12:11)
[2024-03-10 12:13] LABS: MANUAL DIFF FLAG NO
[2024-03-10 12:18] LABS: Basophils Absolute Auto 0.1 X10*3/uL (0.0-0.2); Basophils Percent Auto 0.7 % (0-2); Eosinophils Percent Auto 0.4 % (0-4); Hematocrit 42.2 % (37.0-47.0); Hemoglobin 13.9 g/dl (12.0-16.0); Imm Gran Abs Auto 0.03 X10*3/uL (0.00-0.03); Imm Gran Pct Auto 0.3 % (0.0-0.4); Lymphocytes Absolute Auto 2.1 X10*3/uL (1.2-4.9); Lymphocytes Percent Auto 23.5 % (20-40); Mean Corpuscular HGB Conc 32.9 g/dl (31.0-35.0); Mean Corpuscular Hemoglobin 33.5 pg (27.0-33.0); Mean Corpuscular Volume 101.7 fL (80.0-98.0); Monocytes Percent Auto 11.2 % (2-11); Neutrophils Absolute Auto 5.7 x10*3/uL (2.0-8.3); Neutrophils Percent Auto 63.9 % (45-73); Platelet Count 338 X10*3/uL (160-400); Red Blood Count 4.15 X10*6/uL (4.20-5.50); Red Cell Distribution Width 14.6 % (11.0-16.0); White Blood Count 8.9 X10*3/uL (4.8-10.8)
[2024-03-10 12:25] LABS: INTERNATIONAL NORM RATIO 0.9 (0.9-1.1); Prothrombin Time 10.2 SEC (10.9-12.4)
[2024-03-10 12:43] LABS: B Type Natriuretic Peptide 62 pg/mL (<100)
[2024-03-10 12:45] LABS: Alanine Aminotransferase 27 U/L (0-31); Albumin Level 4.4 g/dL (3.5-5.0); Alkaline Phosphatase 92 U/L (39-117); Anion Gap 12 (12-20); Aspartate Amino Transferase 21 U/L (5-31); Bilirubin Direct 0.2 mg/dL (0.0-0.5); Bilirubin Total 0.3 mg/dL (0.0-1.0); Blood Urea Nitrogen 9 mg/dL (9-16); Carbon Dioxide 30 mmol/L (22-29); Chloride 104 mmol/L (96-108); Creatinine Clr Calc Pharmacy 78.1; Estimated Glomerular Filt Rate > 60; Glucose Random 92 mg/dL (60-115); Magnesium 2.1 mg/dL (1.6-2.6); Potassium 4.5 mmol/L (3.3-5.1); Sodium 141 mmol/L (135-145); Total Protein 7.2 g/dL (6.5-8.0)
[2024-03-10 12:52] LABS: Troponin-I High Sensitivity 11.7 ng/L (<3.5-17.0)
[2024-03-10] MEDS: Albuterol Sulfate 2.5 MG, Albuterol/Iprat 2.5/0.5MG 3 ML 3 ML INHALE (13:19)
[2024-03-10 13:23] LABS: Influenza A PCR NEGATIVE (Negative); Influenza B PCR NEGATIVE (Negative); Resp Syncy Virus RNA Qual PCR NEGATIVE (Negative); SARS COV2 PCR INHOUSE NEGATIVE (Negative)
--- NOTE | 2024-03-10 13:46 | PM.IMHP ---
History of Present Illness Date of Service: 03/10/24 Attending physician on admission: Yovany Lee Chief Complaint: SOB Pt is a 59-year-old female with a PMH significant for chronic hypoxic respiratory failure due to COPD on home recently changed to 3L at rest and 4L with exertion, active smoker, HTN, HLD, CVA, MVR, trigeminal neuralgia, occipital neuralgia and?mood disorder who presents to the ED with?shortness a breath and increased supplemental oxygen demands. Patient reports had increased shortness of breath and chest tightness associated with deep breathing that began earlier today. Was at a follow up appointment with pulmonology earlier today when patient is home O2 was increased to 3 L at rest and 4 L with exertion. Despite this increase and use of home inhalers, patient remained short of breath and hypoxic, which prompted her visit to the ED for further evaluation. In [facility] pt was noted to be 75% on RA. Chronic nonproductive cough at baseline. Denies fever and chills. Patient has attempted multiple times to quit smoking, but reports only being able to go 2-3 days before smoking again. Patient also reports only nicotine replacement therapy that works for her are the nicotine mini lozenges. Denies any other acute complaints. No chest pain or palpitations. Denies nausea, vomiting, abdominal pain. In the ED pt was tachypneic up to 30 and hypertensive up to 152/70, and initially hypoxic at 75% on RA and requiring OxyMask at 15 L to maintain oxygenation of 94%. Labs were grossly unremarkable and around baseline for patient. No leukocytosis. Stable H&H. No significant electrolyte abnormalities. Lactic acid WNL at 1.0 renal and hepatic function baseline. BNP WNL. Flu, RSV, and COVID negative. CXR showed no acute cardiopulmonary disease. EKG demonstrated normal sinus rhythm without significant ST elevations or depressions. Pt was treated with Solu-Medrol, Mag sulfate, and DuoNebs. Pt will be admitted to the hospital for treatment and further evaluation of acute on chronic hypoxic respiratory failure in the setting of acute COPD exacerbation. Review of Systems Review of Systems: Increased SOB, PRECIADO Chest tightness associated with deep breathing Chronic nonproductive cough at baseline No fever, chills Denies nausea, vomiting, abdominal pain No palpitations, chest pain PMFSH Medical History Smoker JUANITO (obstructive sleep apnea) Allergies Hypertension Elevated troponin COPD (chronic obstructive pulmonary disease) Chronic hypercapnic respiratory failure Trigeminal neuralgia Pulmonary nodules Mixed hyperlipidemia Peripheral neuropathy Tobacco use disorder Mood disorder Surgical History History of esophagogastroduodenoscopy (EGD) History of colonoscopy History of lumbar discectomy History of tubal ligation History of excision of mass History of shoulder surgery Social History Household Members: Spouse Housing: House Do you presently have visiting nurse or other home services: Yes Alcohol intake: former Comment: pt refuses bed alarm. Patient Tobacco Use Status: Current everyday Tobacco user Tobacco use type: Cigarette Cigarette Packs Per Day: 1 Cigarettes Per Day: 20.0 Years Smoked: 40 Smoked in Last 30 Days: Yes e-Cigarette/Vaping Use: Never Used Second Hand Smoke Exposure: No Use of substances other than those prescribed or required for medical reasons: No Substance Use Type: Marijuana Advance Directives: Yes Advance Directives on File: Yes Advance Directives Date on File: 03/09/23 Do you have a plan to hurt others: No Plan service: No Meds Allergies Allergy/AdvReac Type Severity Reaction Status Date / Time Iodinated Contrast Media Allergy Intermediate HIVES Verified 03/10/24 12:06 [IV CONTRAST] latex [LATEX] Allergy Unknown RASH Verified 03/10/24 12:06 morphine [MORPHINE] AdvReac Unknown VOMITING Verified 03/10/24 12:06 Active Medications: Current Medications Magnesium Sulfate/Dextrose (Magnesium Sulfate/D5w) 1 gm in 100 mls @ 100 mls/hr IV ONCE ONE Stop: 03/10/24 14:34 Home Medications ?Medication ?Instructions ?Recorded ?Confirmed ?Last Taken ?Type atorvastatin 80 mg tablet 80 mg PO BEDTIME 03/04/23 02/14/24 02/13/24 History [id number] 1 tab PO DAILY PRN Headache 03/04/23 02/14/24 1 Day Ago History 50 mg-325 mg-40 mg tablet ~01/16/24 duloxetine 60 mg capsule,delayed 60 mg PO BID 03/04/23 02/14/24 02/14/24 History release gabapentin 300 mg capsule 1,200 mg PO TID 03/04/23 02/14/24 02/14/24 History hydrocodone 5 mg-acetaminophen 325 1 tab PO BID PRN Pain 03/04/23 02/14/24 01/30/24 History mg tablet hyoscyamine sulfate 0.125 mg tablet 0.125 - 0.25 mg PO Q4-6H PRN 03/04/23 02/14/24 1 Day Ago History Abdominal Discomfort ~01/16/24 lorazepam 1 mg tablet 1 mg PO DAILY PRN Anxiety 03/04/23 02/14/24 1 Day Ago History ~01/16/24 oxcarbazepine 600 mg tablet 600 mg PO BID 03/04/23 02/14/24 02/14/24 History Oxygen Home Use 04/16/23 12/23/23 Unknown History prazosin 2 mg capsule 2 mg PO BEDTIME 04/16/23 02/14/24 02/13/24 History baclofen 15 mg tablet 15 mg PO TID 01/10/24 02/14/24 02/14/24 History lidocaine 4 % topical cream 1 appl topical DAILY PRN Pain 01/17/24 02/14/24 Unknown History vitamin B12 0.5 mg-folic acid 1 mg 1 tab PO DAILY 01/18/24 02/14/24 01/30/24 History tablet albuterol sulfate 90 mcg/actuation 2 puff inhalation Q4H PRN 01/31/24 02/14/24 Unknown History aerosol inhaler Shortness Of Breath Or Wheezing fluticasone fur. 200 mcg-umeclid 1 inh inhalation DAILY 02/14/24 02/14/24 Unknown History 62.5 mcg-vilant 25 mcg inhalat.powder (Trelegy Ellipta) Physical Exam Vital Signs and Narrative: Vital Signs: Last Vital Signs Pulse 75 03/10/24 13:20 Resp 20 03/10/24 13:20 Pulse Ox 96 03/10/24 12:03 O2 Del Method Oxymask 03/10/24 12:03 Oxygen Flow Rate 15 03/10/24 12:03 BMI result Body Mass Index 35.6 General: AOx3, no acute distress Resp: Diffuse expiratory wheezing bilaterally CVS: S1, S2, RRR GI: +BS, NT, no distention Skin: Warm, dry Neuro: Cranial nerves II-XII grossly intact bilaterally. Motor grossly intact bilaterally Extremities: No pitting edema, compression stockings in place bilaterally Psych: Appropriate affect Results Labs 03/10/24 12:09 03/10/24 12:09 Labs: Laboratory Results - last 24 hr 03/10/24 03/10/24 03/10/24 12:09 12:12 12:36 MCV 101.7 H MCH 33.5 H MCHC 32.9 RDW 14.6 Plt Count 338 MPV 9.0 L Immature Gran % (Auto) 0.3 Neut % (Auto) 63.9 Lymph % (Auto) 23.5 [place] % (Auto) 11.2 H Eos % (Auto) 0.4 Baso % (Auto) 0.7 Lymph # (Auto) 2.1 [place] # (Auto) 1.0 Eos # (Auto) 0.0 Baso # (Auto) 0.1 Abs Immat Gran (auto) 0.03 Absolute Neuts (auto) 5.7 Absolute Nucleated RBC 0.000 Nucleated RBC % (auto) 0.0 PT 10.2 L INR 0.9 Anion Gap 12 Estim Creat Clear Calc 78.1 Estimated GFR > 60 Random Glucose 92 Lactic Acid 1.0 Calcium 10.0 Magnesium 2.1 Total Bilirubin 0.3 Direct Bilirubin 0.2 AST 21 ALT 27 Alkaline Phosphatase 92 Troponin I High Sens 11.7 B-Natriuretic Peptide 62 Total Protein 7.2 Albumin 4.4 Influenza Type A (PCR) NEGATIVE Influenza Type B (PCR) NEGATIVE RSV RNA Qual (PCR) NEGATIVE SARS-CoV-2 RNA (RT-PCR) NEGATIVE Assessment and Plan (1) Acute exacerbation of chronic obstructive airways disease: Status: Acute Plan Pt is a 59-year-old female with a PMH significant for chronic hypoxic respiratory failure due to COPD on home recently changed to 3L at rest and 4L with exertion, active smoker, HTN, HLD, CVA, MVR, trigeminal neuralgia, occipital neuralgia and?mood disorder who presents to the ED with?shortness a breath and increased supplemental oxygen demands. Pt will be admitted to the hospital for treatment and further evaluation of acute on chronic hypoxic respiratory failure in the setting of acute COPD exacerbation. Acute on chronic hypoxic respiratory failure in the setting of COPD exacerbation with acute decompensation Pt presents from pulmonology for acute hypoxia despite increasing home O2 to 3L at rest and 4L with exertion No fever or productive cough, CXR negative Will treat Solu-Medrol, DuoNebs Titrate supplemental O2 >90, wean as tolerated to home 3L O2 at rest Monitor respiratory status closely, as patient with a history need for BiPAP in ICU admission CVA/HLD Continue aspirin, statin HTN Continue amlodipine Trigeminal neuralgia Continue baclofen, gabapentin Nicotine dependence Pt reports can only tolerate mini lozenges Mood disorder Continue meds Chronic lower leg edema Compression stockings, home lasix Full Code Attending:?Dr. Lee DVT Prophylaxis: Lovenox Pt will require a hospitalization of at least two nights for treatment of?acute on chronic hypoxic failure in the setting of COPD with acute decompensation that will require IV steroids, increased supplement O2, and breathing treatments with close monitoring of respiratory status due to patient's history of ICU admissions for similar symptoms. Quality Stroke Does the patient have a stroke diagnosis?: No VTE Prior VTE?: No VTE Risk Level:: Medical - moderate - high VTE Device Contraindication: Treatment Not Indicated VTE Drug Contraindication: N/A - Med Ordered
[2024-03-10] MEDS: methylPREDNISolone Sod Succ 125 MG/2 ML VIAL IVPUSH (13:53)
[2024-03-10] MEDS: Magnesium Sulfate/D5W 1 GM/100 ML PIGGYBACK IV (13:53)
[2024-03-10] MEDS: Baclofen 10 MG TABLET 15 MG PO ×2 (14:34→21:16)
[2024-03-10] MEDS: Gabapentin 600 MG TABLET 1200 MG PO (14:35)
--- NOTE | 2024-03-10 15:12 | PHA.MEDREC ---
Pharmacy Consult ? Medication Reconciliation Pharmacy has completed the medication reconciliation. Spoke with patient at bedside, and confirmed medication with patient and with claims history from pharmacy. Patient was just recently discharge on 02/16/24, pt is a good historian.
[2024-03-10] MEDS: Albuterol/Iprat 2.5/0.5MG 3 ML AMPUL.NEB INHALE ×2 (15:24→18:47)
[2024-03-10] MEDS: Nicotine Polacrilex Lozenge 4 MG LOZENGE BUCCAL (16:17)
[2024-03-10] MEDS: 0.9 % Sodium Chloride Flush 3 ML SYRINGE IVFLUSH ×2 (16:18→20:24)
--- NOTE | 2024-03-10 17:24 | MHC.EDTECH ---
This pct just assumed care of Patient ,Patient was assisted unto bedpan ,void ,care given and bedding change ,Patient belongings list done .
[2024-03-10] MEDS: DULoxetine HCl 60 MG CAPSULE.DR PO (21:14)
[2024-03-10] MEDS: guaiFENesin 200 MG/10 ML 10 ML LIQUID PO (21:14)
[2024-03-10] MEDS: Atorvastatin Calcium 80 MG TABLET PO (21:15)
[2024-03-10] MEDS: OXcarbazepine 300 MG TABLET 600 MG PO (21:15)
[2024-03-10] MEDS: Prazosin HCL 1 MG CAPSULE 2 MG PO (21:15)
[2024-03-10] MEDS: Gabapentin 400 MG CAPSULE 1200 MG PO (21:16)
[2024-03-10] MEDS: VerapamiL HCL 120 MG TABLET PO (21:16)
[2024-03-10] MEDS: Butalb/Acetamin/Caff 50/325/40 TABLET 1 TAB PO (21:17)
[2024-03-10] MEDS: HYDROcodone Bit/Acetam 5/325 TABLET 1 TAB PO (21:22)
[2024-03-11] VITALS (13 sets, daily range): BP systolic 127–157; BP diastolic 58–72; PULSE 80–91; RESP 17–19; TEMP 36.2–37.2; O2SAT 93–98
[2024-03-11] MEDS: Albuterol/Iprat 2.5/0.5MG 3 ML AMPUL.NEB INHALE ×6 (01:07→18:59)
[2024-03-11] MEDS: methylPREDNISolone Sod Succ 40 MG/ML VIAL IVPUSH ×2 (01:10→14:32)
[2024-03-11] MEDS: guaiFENesin 200 MG/10 ML 10 ML LIQUID PO ×4 (02:53→20:47)
[2024-03-11] MEDS: Nicotine Polacrilex Lozenge 4 MG LOZENGE BUCCAL (04:30)
[2024-03-11] MEDS: Aspirin Enteric Coated 81 MG TABLET.DR PO (05:10)
[2024-03-11] MEDS: Folic Acid 1 MG TABLET PO (05:14)
[2024-03-11] MEDS: Cyanocobalamin (Vitamin B-12) 500 MCG TABLET PO (05:15)
[2024-03-11] MEDS: Furosemide 20 MG TABLET PO (05:18)
[2024-03-11] MEDS: OXcarbazepine 300 MG TABLET 600 MG PO ×2 (05:25→19:19)
[2024-03-11] MEDS: Gabapentin 400 MG CAPSULE 1200 MG PO ×3 (05:25→19:19)
[2024-03-11] MEDS: Baclofen 10 MG TABLET 15 MG PO ×3 (05:25→19:19)
[2024-03-11] MEDS: DULoxetine HCl 60 MG CAPSULE.DR PO ×2 (05:25→19:20)
[2024-03-11] MEDS: VerapamiL HCL 120 MG TABLET PO ×2 (05:26→19:22)
[2024-03-11] MEDS: Fluticasone/Umeclidinium/Vilanterol 200/62.5/25 BLST.W.DEV 1 PUFF INHALE (07:43)
[2024-03-11] MEDS: 0.9 % Sodium Chloride Flush 3 ML SYRINGE IVFLUSH ×3 (08:18→19:28)
--- NOTE | 2024-03-11 08:59 | HO.PM.IMPN ---
Subjective Subjective Date of Service: 03/11/24 Interval History: still sob, wheezy Physical Exam Vital Signs: Vital Signs: Last Vital Signs Temp 98.9 F 03/11/24 07:36 Pulse 86 03/11/24 07:50 Resp 18 03/11/24 07:50 BP 127/58 L 03/11/24 07:36 Pulse Ox 93 03/11/24 07:36 O2 Del Method Nasal Cannula 03/11/24 07:36 O2 Flow Rate 2 03/11/24 07:36 Oxygen Flow Rate 15 03/10/24 12:03 BMI result Body Mass Index 36.7 General: AO X 3, no acute distress Resp: wheezing bilateral, no accessory muscles used CVS: S1,S2,RRR GI: soft, non tender, non distended Neuro: motor grossly intact, alert Psych: appropriate affect, appropriate insight Objective Data Active Medications Acetaminophen (Acetaminophen 325 Mg Tablet) 650 mg PO Q6H PRN PRN Reason: Pain, Mild (Pain Scale 1-3), fever or headache Acetaminophen/Butalbital/Caffeine (Butalb/Acetamin/Caff 50/325/40 Tablet) 1 tab PO DAILY PRN PRN Reason: Headache Last Admin: 03/10/24 21:17 Dose: 1 tab Documented By: SARAH Hydrocodone Bitart/Acetaminophen (Hydrocodone Bit/Acetam 5/325 Tablet) 1 tab PO BID PRN PRN Reason: Pain, Moderate(Pain Scale 4-6) Last Admin: 03/10/24 21:22 Dose: 1 tab Documented By: SARAH Albuterol/Ipratropium (Albuterol/Iprat 2.5/0.5mg 3 Ml Ampul.Neb) 3 ml INHALE RQ4H WHILE AWAKE [facility] Last Admin: 03/11/24 07:46 Dose: 3 ml Documented By: MARYLU Albuterol/Ipratropium (Albuterol/Iprat 2.5/0.5mg 3 Ml Ampul.Neb) 3 ml INHALE Q4H PRN PRN Reason: Wheezing Last Admin: 03/11/24 04:57 Dose: 3 ml Documented By: CASSIDY Aspirin (Aspirin Enteric Coated 81 Mg Tablet.) 81 mg PO DAILY@0500 [facility] Last Admin: 03/11/24 05:10 Dose: 81 mg Documented By: SARAH Atorvastatin Calcium (Atorvastatin Calcium 80 Mg Tablet) 80 mg PO BEDTIME [facility] Last Admin: 03/10/24 21:15 Dose: 80 mg Documented By: SARAH Baclofen (Baclofen 10 Mg Tablet) 15 mg PO TID [facility] Last Admin: 03/11/24 05:25 Dose: 15 mg Documented By: SARAH Benzonatate (Benzonatate 100 Mg Capsule) 100 mg PO TID PRN PRN Reason: Cough Calcium Carbonate (Calcium Carbonate 750 Mg Tab.Chew) 750 mg PO Q4H PRN PRN Reason: Heartburn Cyanocobalamin (Cyanocobalamin (Vitamin B-12) 500 Mcg Tablet) 500 mcg PO DAILY@0500 [facility] Last Admin: 03/11/24 05:15 Dose: 500 mcg Documented By: SARAH Duloxetine HCl (Duloxetine Hcl 60 Mg Capsule.Dr) 60 mg PO BID [facility] Last Admin: 03/11/24 05:25 Dose: 60 mg Documented By: SARAH Enoxaparin Sodium (Enoxaparin Sodium 40 Mg/0.4 Ml Syringe) 40 mg SUBCUT Q24H [facility] Last Admin: 03/10/24 16:12 Dose: Not Given Documented By: ILYA Non-Admin Reason: Patient Refused Fluticasone/Umeclidinium/Vilanterol (Fluticasone/Umeclidinium/Vilanterol 200/62.5/25 Blst.W.Dev) 1 puff INHALE RDAILY [facility] Last Admin: 03/11/24 07:43 Dose: 1 puff Documented By: MARYLU Folic Acid (Folic Acid 1 Mg Tablet) 1 mg PO DAILY@0500 [facility] Last Admin: 03/11/24 05:14 Dose: 1 mg Documented By: SARAH Furosemide (Furosemide 20 Mg Tablet) 20 mg PO DAILY@0500 [facility]; Protocol Last Admin: 03/11/24 05:18 Dose: 20 mg Documented By: SARAH Gabapentin (Gabapentin 400 Mg Capsule) 1,200 mg PO TID [facility] Last Admin: 03/11/24 05:25 Dose: 1,200 mg Documented By: SARAH Guaifenesin (Guaifenesin 200 Mg/10 Ml 10 Ml Liquid) 10 ml PO Q6H [facility] Last Admin: 03/11/24 08:17 Dose: 10 ml Documented By: MALIK Lidocaine HCl (Lidocaine 4 % Cream Kit) 1 appl TOPICAL DAILY PRN PRN Reason: Pain Lorazepam (Lorazepam 1 Mg Tablet) 1 mg PO DAILY PRN PRN Reason: Anxiety Magnesium Hydroxide (Milk Of Magnesia 30 Ml Oral.Susp) 30 ml PO DAILY PRN PRN Reason: Constipation Melatonin (Melatonin 3 Mg Tablet) 6 mg PO BEDTIME PRN PRN Reason: Insomnia Methylprednisolone Sodium Succinate (Methylprednisolone Sod Succ 40 Mg/Ml Vial) 40 mg IVPUSH Q12H [facility] Last Admin: 03/11/24 01:10 Dose: 40 mg Documented By: SARAH Nicotine Polacrilex (Nicotine Polacrilex Lozenge 4 Mg Lozenge) 4 mg BUCCAL Q2H PRN PRN Reason: Nicotine Cravings Last Admin: 03/11/24 04:30 Dose: 4 mg Documented By: TASHI Non-Formulary Medication (Hyoscyamine Sulfate) 0.125 - 0.25 mg PO Q4H PRN PRN Reason: Abdominal Discomfort Ondansetron HCl (Ondansetron Hcl 4 Mg/2 Ml Vial) 4 mg IVPUSH Q8H PRN PRN Reason: Nausea and Vomiting Oxcarbazepine (Oxcarbazepine 300 Mg Tablet) 600 mg PO BID [facility] Last Admin: 03/11/24 05:25 Dose: 600 mg Documented By: SARAH Prazosin HCl (Prazosin Hcl 1 Mg Capsule) 2 mg PO BEDTIME [facility]; Protocol Last Admin: 03/10/24 21:15 Dose: 2 mg Documented By: SARAH Sodium Chloride (0.9 % Sodium Chloride Flush 3 Ml Syringe) 3 ml IVFLUSH QSHIFT [facility] Last Admin: 03/11/24 08:18 Dose: 3 ml Documented By: MALIK Verapamil HCl (Verapamil Hcl 120 Mg Tablet) 120 mg PO BID [facility]; Protocol Last Admin: 03/11/24 05:26 Dose: 120 mg Documented By: SARAH Labs 03/10/24 12:09 03/10/24 12:09 Labs: Laboratory Results - last 24 hr 03/10/24 03/10/24 03/10/24 12:09 12:12 12:36 MCV 101.7 H MCH 33.5 H MCHC 32.9 RDW 14.6 Plt Count 338 MPV 9.0 L Immature Gran % (Auto) 0.3 Neut % (Auto) 63.9 Lymph % (Auto) 23.5 [place] % (Auto) 11.2 H Eos % (Auto) 0.4 Baso % (Auto) 0.7 Lymph # (Auto) 2.1 [place] # (Auto) 1.0 Eos # (Auto) 0.0 Baso # (Auto) 0.1 Abs Immat Gran (auto) 0.03 Absolute Neuts (auto) 5.7 Absolute Nucleated RBC 0.000 Nucleated RBC % (auto) 0.0 PT 10.2 L INR 0.9 Anion Gap 12 Estim Creat Clear Calc 78.1 Estimated GFR > 60 Random Glucose 92 Lactic Acid 1.0 Calcium 10.0 Magnesium 2.1 Total Bilirubin 0.3 Direct Bilirubin 0.2 AST 21 ALT 27 Alkaline Phosphatase 92 Troponin I High Sens 11.7 B-Natriuretic Peptide 62 Total Protein 7.2 Albumin 4.4 Influenza Type A (PCR) NEGATIVE Influenza Type B (PCR) NEGATIVE RSV RNA Qual (PCR) NEGATIVE SARS-CoV-2 RNA (RT-PCR) NEGATIVE Assessment and Plan (1) Acute exacerbation of chronic obstructive airways disease: Status: Acute Plan 59F PMH chronic hypoxic respiratory failure due to COPD on 3 L at rest and 4 L with exertion, hypertension, hyperlipidemia, CVA, MVR, trigeminal neuralgia, occipital neuralgia, mood disorder presented with shortness of breath Acute on chronic hypoxic respiratory failure due to COPD with acute decompensation Continued IV steroids, DuoNebs, wean O2 down to baseline History of CVA Continue aspirin statin Hypertension Continue verapamil Trigeminal neuralgia/ chronic pain Continue verapamil, oxcarbazepine, baclofen, gabapentin Obesity with chronic venous stasis Weight loss, Lasix DVT prophylaxis with Lovenox Full Code reason for continued hospitalization: Still short of breath and wheezy Quality Stroke Does the patient have a stroke diagnosis?: No VTE Prior VTE?: No VTE Risk Level:: Medical - moderate - high VTE Device Contraindication: Treatment Not Indicated VTE Drug Contraindication: N/A - Med Ordered
--- NOTE | 2024-03-11 12:04 | MHC.CM.PN ---
pt is active with [facility] she has home 02 ,will need to take [facility] shuttle home pt reqursting a scrupt for a rollator walker with a basket ,red if possible when she is dc dc planhome with ns
[2024-03-11] MEDS: LORazepam 1 MG TABLET PO (19:19)
[2024-03-11] MEDS: Atorvastatin Calcium 80 MG TABLET PO (19:20)
[2024-03-11] MEDS: Prazosin HCL 1 MG CAPSULE 2 MG PO (19:20)
[2024-03-11] MEDS: HYDROcodone Bit/Acetam 5/325 TABLET 1 TAB PO (19:23)
[2024-03-12] VITALS (12 sets, daily range): BP systolic 143–179; BP diastolic 62–82; PULSE 77–88; RESP 16–19; TEMP 36.1–36.6; O2SAT 93–97
[2024-03-12] MEDS: methylPREDNISolone Sod Succ 40 MG/ML VIAL IVPUSH ×2 (01:09→14:07)
[2024-03-12] MEDS: OXcarbazepine 300 MG TABLET 600 MG PO ×2 (04:59→20:23)
[2024-03-12] MEDS: Gabapentin 400 MG CAPSULE 1200 MG PO ×3 (04:59→20:30)
[2024-03-12] MEDS: DULoxetine HCl 60 MG CAPSULE.DR PO ×2 (05:00→20:31)
[2024-03-12] MEDS: Folic Acid 1 MG TABLET PO (05:01)
[2024-03-12] MEDS: Baclofen 10 MG TABLET 15 MG PO ×3 (05:01→20:31)
[2024-03-12] MEDS: Aspirin Enteric Coated 81 MG TABLET.DR PO (05:02)
[2024-03-12] MEDS: Cyanocobalamin (Vitamin B-12) 500 MCG TABLET PO (05:02)
[2024-03-12] MEDS: VerapamiL HCL 120 MG TABLET PO ×2 (05:02→20:42)
[2024-03-12] MEDS: Furosemide 20 MG TABLET PO (05:03)
[2024-03-12] MEDS: Albuterol/Iprat 2.5/0.5MG 3 ML AMPUL.NEB INHALE ×5 (05:16→19:58)
[2024-03-12] MEDS: Fluticasone/Umeclidinium/Vilanterol 200/62.5/25 BLST.W.DEV 1 PUFF INHALE (07:50)
[2024-03-12] MEDS: 0.9 % Sodium Chloride Flush 3 ML SYRINGE IVFLUSH ×2 (09:13→20:32)
[2024-03-12] MEDS: guaiFENesin 200 MG/10 ML 10 ML LIQUID PO ×3 (09:13→20:23)
--- NOTE | 2024-03-12 09:22 | HO.PM.IMPN ---
Subjective Subjective Date of Service: 03/12/24 Interval History: still sob, wheezy Physical Exam Vital Signs: Vital Signs: Last Vital Signs Temp 97 F 03/12/24 07:51 Pulse 86 03/12/24 07:51 Resp 17 03/12/24 07:51 BP 143/62 H 03/12/24 07:51 Pulse Ox 95 03/12/24 07:51 O2 Del Method Nasal Cannula 03/12/24 07:51 O2 Flow Rate 2 03/12/24 04:00 Oxygen Flow Rate 15 03/10/24 12:03 BMI result Body Mass Index 36.7 General: AO X 3, no acute distress Resp: wheezing bilateral, no accessory muscles used CVS: S1,S2,RRR GI: soft, non tender, non distended Neuro: motor grossly intact, alert Psych: appropriate affect, appropriate insight Objective Data Active Medications Acetaminophen (Acetaminophen 325 Mg Tablet) 650 mg PO Q6H PRN PRN Reason: Pain, Mild (Pain Scale 1-3), fever or headache Acetaminophen/Butalbital/Caffeine (Butalb/Acetamin/Caff 50/325/40 Tablet) 1 tab PO DAILY PRN PRN Reason: Headache Last Admin: 03/10/24 21:17 Dose: 1 tab Documented By: SARAH Hydrocodone Bitart/Acetaminophen (Hydrocodone Bit/Acetam 5/325 Tablet) 1 tab PO BID PRN PRN Reason: Pain, Moderate(Pain Scale 4-6) Last Admin: 03/11/24 19:23 Dose: 1 tab Documented By: SARAH Albuterol/Ipratropium (Albuterol/Iprat 2.5/0.5mg 3 Ml Ampul.Neb) 3 ml INHALE RQ4H WHILE AWAKE [facility] Last Admin: 03/12/24 07:50 Dose: 3 ml Documented By: MURRAY Albuterol/Ipratropium (Albuterol/Iprat 2.5/0.5mg 3 Ml Ampul.Neb) 3 ml INHALE Q4H PRN PRN Reason: Wheezing Last Admin: 03/12/24 05:16 Dose: 3 ml Documented By: CASISDY Aspirin (Aspirin Enteric Coated 81 Mg Tablet.) 81 mg PO DAILY@0500 [facility] Last Admin: 03/12/24 05:02 Dose: 81 mg Documented By: SARAH Atorvastatin Calcium (Atorvastatin Calcium 80 Mg Tablet) 80 mg PO BEDTIME [facility] Last Admin: 03/11/24 19:20 Dose: 80 mg Documented By: SARAH Baclofen (Baclofen 10 Mg Tablet) 15 mg PO TID [facility] Last Admin: 03/12/24 05:01 Dose: 15 mg Documented By: SARAH Benzonatate (Benzonatate 100 Mg Capsule) 100 mg PO TID PRN PRN Reason: Cough Calcium Carbonate (Calcium Carbonate 750 Mg Tab.Chew) 750 mg PO Q4H PRN PRN Reason: Heartburn Cyanocobalamin (Cyanocobalamin (Vitamin B-12) 500 Mcg Tablet) 500 mcg PO DAILY@0500 [facility] Last Admin: 03/12/24 05:02 Dose: 500 mcg Documented By: SARAH Duloxetine HCl (Duloxetine Hcl 60 Mg Capsule.Dr) 60 mg PO BID [facility] Last Admin: 03/12/24 05:00 Dose: 60 mg Documented By: SARAH Enoxaparin Sodium (Enoxaparin Sodium 40 Mg/0.4 Ml Syringe) 40 mg SUBCUT Q24H [facility] Last Admin: 03/11/24 13:46 Dose: Not Given Documented By: MALIK Non-Admin Reason: Patient Refused Fluticasone/Umeclidinium/Vilanterol (Fluticasone/Umeclidinium/Vilanterol 200/62.5/25 Blst.W.Dev) 1 puff INHALE RDAILY [facility] Last Admin: 03/12/24 07:50 Dose: 1 puff Documented By: MURRAY Folic Acid (Folic Acid 1 Mg Tablet) 1 mg PO DAILY@0500 [facility] Last Admin: 03/12/24 05:01 Dose: 1 mg Documented By: SARAH Furosemide (Furosemide 20 Mg Tablet) 20 mg PO DAILY@0500 [facility]; Protocol Last Admin: 03/12/24 05:03 Dose: 20 mg Documented By: SARAH Gabapentin (Gabapentin 400 Mg Capsule) 1,200 mg PO TID [facility] Last Admin: 03/12/24 04:59 Dose: 1,200 mg Documented By: SARAH Guaifenesin (Guaifenesin 200 Mg/10 Ml 10 Ml Liquid) 10 ml PO Q6H [facility] Last Admin: 03/12/24 09:13 Dose: 10 ml Documented By: MALIK Lidocaine HCl (Lidocaine 4 % Cream Kit) 1 appl TOPICAL DAILY PRN PRN Reason: Pain Lorazepam (Lorazepam 1 Mg Tablet) 1 mg PO DAILY PRN PRN Reason: Anxiety Last Admin: 03/11/24 19:19 Dose: 1 mg Documented By: SARAH Magnesium Hydroxide (Milk Of Magnesia 30 Ml Oral.Susp) 30 ml PO DAILY PRN PRN Reason: Constipation Melatonin (Melatonin 3 Mg Tablet) 6 mg PO BEDTIME PRN PRN Reason: Insomnia Methylprednisolone Sodium Succinate (Methylprednisolone Sod Succ 40 Mg/Ml Vial) 40 mg IVPUSH Q12H [facility] Last Admin: 03/12/24 01:09 Dose: 40 mg Documented By: SARAH Nicotine Polacrilex (Nicotine Polacrilex Lozenge 4 Mg Lozenge) 4 mg BUCCAL Q2H PRN PRN Reason: Nicotine Cravings Last Admin: 03/11/24 04:30 Dose: 4 mg Documented By: TASHI Non-Formulary Medication (Hyoscyamine Sulfate) 0.125 - 0.25 mg PO Q4H PRN PRN Reason: Abdominal Discomfort Ondansetron HCl (Ondansetron Hcl 4 Mg/2 Ml Vial) 4 mg IVPUSH Q8H PRN PRN Reason: Nausea and Vomiting Oxcarbazepine (Oxcarbazepine 300 Mg Tablet) 600 mg PO BID [facility] Last Admin: 03/12/24 04:59 Dose: 600 mg Documented By: SARAH Prazosin HCl (Prazosin Hcl 1 Mg Capsule) 2 mg PO BEDTIME [facility]; Protocol Last Admin: 03/11/24 19:20 Dose: 2 mg Documented By: SARAH Sodium Chloride (0.9 % Sodium Chloride Flush 3 Ml Syringe) [facility] Last Admin: 03/12/24 09:13 Dose: 3 ml Documented By: MALIK Verapamil HCl (Verapamil Hcl 120 Mg Tablet) 120 mg PO BID [facility]; Protocol Last Admin: 03/12/24 05:02 Dose: 120 mg Documented By: SARAH Labs 03/10/24 12:09 03/10/24 12:09 Microbiology Microbiology Results: Microbiology 03/10/24 12:36 Blood Culture - Preliminary Blood - Venous No growth after 24 hours. 03/10/24 12:36 Blood Culture - Preliminary Blood - Venous No growth after 24 hours. Assessment and Plan (1) Acute exacerbation of chronic obstructive airways disease: Status: Acute Plan 59F PMH chronic hypoxic respiratory failure due to COPD on 3 L at rest and 4 L with exertion, hypertension, hyperlipidemia, CVA, MVR, trigeminal neuralgia, occipital neuralgia, mood disorder presented with shortness of breath Acute on chronic hypoxic respiratory failure due to COPD with acute decompensation Continued IV steroids, DuoNebs, wean O2 down to baseline History of CVA Continue aspirin statin Hypertension Continue verapamil Trigeminal neuralgia/ chronic pain Continue verapamil, oxcarbazepine, baclofen, gabapentin Obesity with chronic venous stasis Weight loss, Lasix DVT prophylaxis with Lovenox Full Code reason for continued hospitalization: Still short of breath and wheezy Quality Stroke Does the patient have a stroke diagnosis?: No VTE Prior VTE?: No VTE Risk Level:: Medical - moderate - high VTE Device Contraindication: Treatment Not Indicated VTE Drug Contraindication: N/A - Med Ordered
[2024-03-12] MEDS: HYDROcodone Bit/Acetam 5/325 TABLET 1 TAB PO (12:05)
[2024-03-12] MEDS: Atorvastatin Calcium 80 MG TABLET PO (20:23)
[2024-03-12] MEDS: Prazosin HCL 1 MG CAPSULE 2 MG PO (20:24)
[2024-03-13] MEDS: methylPREDNISolone Sod Succ 40 MG/ML VIAL IVPUSH (01:33)
[2024-03-13] MEDS: guaiFENesin 200 MG/10 ML 10 ML LIQUID PO ×2 (01:35→08:33)
[2024-03-13 04:00] VITALS: BP 154/70; PULSE 82; RESP 18; TEMP 36.2; O2SAT 90
[2024-03-13] MEDS: Gabapentin 400 MG CAPSULE 1200 MG PO (04:53)
[2024-03-13 04:54] VITALS: BP 173/79
[2024-03-13] MEDS: Furosemide 20 MG TABLET PO (04:54)
[2024-03-13 04:55] VITALS: BP 173/79; PULSE 82
[2024-03-13] MEDS: VerapamiL HCL 120 MG TABLET PO (04:55)
[2024-03-13] MEDS: OXcarbazepine 300 MG TABLET 600 MG PO (04:56)
[2024-03-13] MEDS: Baclofen 10 MG TABLET 15 MG PO (04:57)
[2024-03-13] MEDS: Folic Acid 1 MG TABLET PO (04:57)
[2024-03-13] MEDS: DULoxetine HCl 60 MG CAPSULE.DR PO (04:59)
[2024-03-13] MEDS: Aspirin Enteric Coated 81 MG TABLET.DR PO (04:59)
[2024-03-13] MEDS: Cyanocobalamin (Vitamin B-12) 500 MCG TABLET PO (04:59)
[2024-03-13 05:31] VITALS: PULSE 80; RESP 18; O2SAT 95
[2024-03-13] MEDS: Albuterol/Iprat 2.5/0.5MG 3 ML AMPUL.NEB INHALE ×2 (05:31→08:36)
[2024-03-13 07:34] VITALS: BP 160/77; PULSE 79; RESP 18; TEMP 36.3; O2SAT 95
--- NOTE | 2024-03-13 08:24 | PM.DS ---
DS: Providers Provider Date of Service: 03/13/24 Date of admission: 03/10/24 14:45 Date of discharge: 03/13/24 Primary care physician: ESTEBAN Christianson DS: Diagnosis Discharge Diagnosis (1) Acute exacerbation of chronic obstructive airways disease: Status: Acute DS: Summary Hospital Course Hospital Course: from initial hpi: 59-year-old female with a PMH significant for chronic hypoxic respiratory failure due to COPD on home recently changed to 3L at rest and 4L with exertion, active smoker, HTN, HLD, CVA, MVR, trigeminal neuralgia, occipital neuralgia and?mood disorder who presents to the ED with?shortness a breath and increased supplemental oxygen demands. Patient reports had increased shortness of breath and chest tightness associated with deep breathing that began earlier today. Was at a follow up appointment with pulmonology earlier today when patient is home O2 was increased to 3 L at rest and 4 L with exertion. Despite this increase and use of home inhalers, patient remained short of breath and hypoxic, which prompted her visit to the ED for further evaluation. In [facility] pt was noted to be 75% on RA. Chronic nonproductive cough at baseline. Denies fever and chills. Patient has attempted multiple times to quit smoking, but reports only being able to go 2-3 days before smoking again. Patient also reports only nicotine replacement therapy that works for her are the nicotine mini lozenges. Denies any other acute complaints. No chest pain or palpitations. Denies nausea, vomiting, abdominal pain. In the ED pt was tachypneic up to 30 and hypertensive up to 152/70, and initially hypoxic at 75% on RA and requiring OxyMask at 15 L to maintain oxygenation of 94%. Labs were grossly unremarkable and around baseline for patient. No leukocytosis. Stable H&H. No significant electrolyte abnormalities. Lactic acid WNL at 1.0 renal and hepatic function baseline. BNP WNL. Flu, RSV, and COVID negative. CXR showed no acute cardiopulmonary disease. EKG demonstrated normal sinus rhythm without significant ST elevations or depressions. Pt was treated with Solu-Medrol, Mag sulfate, and DuoNebs. Pt will be admitted to the hospital for treatment and further evaluation of acute on chronic hypoxic respiratory failure in the setting of acute COPD exacerbation. hospital course: Patient was admitted for acute on chronic hypoxic respiratory failure due to COPD with acute decompensation. She was treated with IV Solu-Medrol, DuoNebs, oxygen was weaned down to her baseline. Wheezing and shortness of breath eventually significantly improved. Patient is now close to her baseline and will be discharged on 5 more days of prednisone. For history of CVA was continued on aspirin and statin. For hypertension was continued on verapamil. For trigeminal neuralgia/chronic pain was continued on oxcarbazepine, baclofen, gabapentin. For obesity with chronic venous stasis weight loss is recommended and was continued on Lasix. For history of JUANITO patient does not tolerate CPAP due to trigeminal neuralgia was continued on nocturnal oxygen. Time Attestation Discharge Coordination Time (in mins): 32 Quality: Safe Use of Opioids Does Pt have an Active Cancer Diagnosis on the Problem List?: No Quality: Stroke Does the patient have a stroke diagnosis?: No Physical Exam Vital Signs: Vital Signs: Last Vital Signs Temp 97.4 F 03/13/24 07:34 Pulse 79 03/13/24 07:34 Resp 18 03/13/24 07:34 BP 160/77 H 03/13/24 07:34 Pulse Ox 95 03/13/24 07:34 O2 Del Method Nasal Cannula 03/13/24 07:34 O2 Flow Rate 2 03/13/24 07:34 Oxygen Flow Rate 15 03/10/24 12:03 BMI result Body Mass Index 36.7 General: AO X 3, no acute distress Resp: CTA bilateral, no accessory muscles used CVS: S1,S2,RRR GI: soft, non tender, non distended Neuro: motor grossly intact, alert Psych: appropriate affect, appropriate insight DS: Data Data Completed and Pending Completed studies during hospitalization [Text1]: Procedures Assistance with Respiratory Ventilation, Less than 24 Consecutive Hours, Continuous Positive Airway Pressure (12/10/23) Labs on day of discharge: Preliminary micro results at discharge 03/10/24 12:36 Blood Culture - Preliminary Blood - Venous No growth after 48 hours. 03/10/24 12:36 Blood Culture - Preliminary Blood - Venous No growth after 48 hours. Discharge Plan Discharge Anticipated Discharge Date/Time: 03/13/24 08:22 Patient Disposition: Home, Self-Care Discharge Diagnosis: COPD Referrals: Sirisha Huertas, [employer] [Primary Care Provider] - 1 Week Discharge Medications: New prednisone 20 mg tablet 40 mg PO DAILY Qty: 10 0RF Continued verapamil 120 mg tablet 120 mg PO BID Qty: 60 1RF ipratropium-albuterol 0.5 mg-3 mg(2.5 mg base)/3 mL solution for nebulization 3 ml inhalation Q4H PRN (Reason: for dyspnea) Qty: 180 11RF baclofen 15 mg Tablet 15 mg PO TID furosemide [Lasix] 20 mg tablet 20 mg PO DAILY Qty: 7 0RF lidocaine 4 % Cream 1 appl TOPICAL DAILY PRN (Reason: Pain) vitamin U41-wavlv acid 0.5-1 mg Tablet 1 tab PO DAILY Trelegy Ellipta 200-62.5-25 mcg Blister With Device 1 inh INHALATION DAILY guaifenesin 100 mg/5 mL liquid 200 mg PO Q6H Qty: 473 1RF atorvastatin 80 mg tablet 80 mg PO BEDTIME hydrocodone-acetaminophen 5-325 mg tablet 1 tab PO BID PRN (Reason: Pain) [id number]-[id number] 50-325-40 mg tablet 1 tab PO DAILY PRN (Reason: Headache) hyoscyamine sulfate 0.125 mg tablet 0.125 - 0.25 mg PO Q4-6H PRN (Reason: Abdominal Discomfort) gabapentin 300 mg capsule 1,200 mg PO TID oxcarbazepine 600 mg tablet 600 mg PO BID lorazepam 1 mg tablet 1 mg PO DAILY PRN (Reason: Anxiety) duloxetine 60 mg capsule,delayed release(DR/EC) 60 mg PO BID aspirin 81 mg Tablet,Delayed Release (Dr/Ec) 81 mg PO DAILY Qty: 90 0RF (DME) nebulizer and compressor Device See Rx Instructions .Route Qty: 1 0RF Rx Instructions: As directed albuterol sulfate 90 mcg/actuation HFA aerosol inhaler 2 puff inhalation Q4H PRN (Reason: Shortness Of Breath Or Wheezing) nicotine (polacrilex) [Nicorette] 4 mg mini lozenge 4 mg buccal Q4-8H PRN (Reason: nicotine cravings) Qty: 81 0RF prazosin 2 mg capsule 2 mg PO BEDTIME (DME) Oxygen Home Use Kit See Rx Instructions .Route Rx Instructions: As directed Discharge Orders: Discharge Order (Routine); Ordered 03/13/24 Ordered By: Yovany Lee Diet: Advance to usual diet Activity on Discharge: As tolerated Stand Alone Forms: Patient Portal Discharge page Print Language: Setswana Care Plan Goals: Recovery Health Concerns: COPD Plan of Treatment: 5 more days of prednisone, O2 supplementation for maintaining goal of saturations in the low 90s Assessment: See above
[2024-03-13] MEDS: 0.9 % Sodium Chloride Flush 3 ML SYRINGE IVFLUSH (08:34)
[2024-03-13] MEDS: Fluticasone/Umeclidinium/Vilanterol 200/62.5/25 BLST.W.DEV 1 PUFF INHALE (08:36)
[2024-03-13 08:39] VITALS: PULSE 78; RESP 16; O2SAT 95
--- NOTE | 2024-03-13 09:09 | MHC.CM.PN ---
CM MET WITH PT AT HER REQUEST SHE REPORTS SHE SAW THE PULMONARY PA GENETIC ENGINEER AND WAS TOLD SHE HAS TO SEE DR NUÑEZ DIRECTLY SHE REQUESTED CM CALL THE OFFICE TO MAKE AN APPT FOR HER CM CALLED DR NUÑEZ'S OFFICE AND WAS TOLD THERE WERE ONLY APPTS WITH THE TRANSMITTER OPERATOR AVAILABLE CM EXPLAINED WHAT PT HAS RELAYED AND WAS TOLD THE SILK SCREEN PAINTER WOULD CALL THE PT DIRECTLY TO PROVIDE AN APPT PT WILL DC HOME TODAY WITH RESUMPTION OF [facility] [facility] VIA PRIVATE TRANSPORT
== END 2024-03-13 11:41 | disposition home or self-care (01) | DRG 140 ==
LOC: HO.ED 13:38 → HO.EDOVER 14:58 → HO.S3 17:17
PROVIDERS: Physician Assistant; Admitting Provider Student in an Organized Health Care Education/Training Program; Emergency Provider Student in an Organized Health Care Education/Training Program; PCP Registered Nurse; Visit Provider Internal Medicine
DX: J44.1 Chronic obstructive pulmonary disease with (acute) exacerbation (principal); J96.21 Acute and chronic respiratory failure with hypoxia; Z99.81 Dependence on supplemental oxygen; G47.33 Obstructive sleep apnea (adult) (pediatric); F39 Unspecified mood [affective] disorder; F17.210 Nicotine dependence, cigarettes, uncomplicated; E78.5 Hyperlipidemia, unspecified; E66.9 Obesity, unspecified; Z68.36 Body mass index [BMI] 36.0-36.9, adult; Z71.3 Dietary counseling and surveillance; I10 Essential (primary) hypertension; G50.0 Trigeminal neuralgia; I87.303 Chronic venous hypertension (idiopathic) without complications of bilateral lower extremity; Z86.73 Personal history of transient ischemic attack (TIA), and cerebral infarction without residual deficits; Z20.822 Contact with and (suspected) exposure to COVID-19; G89.29 Other chronic pain; Z95.2 Presence of prosthetic heart valve; Z71.6 Tobacco abuse counseling; Z91.041 Radiographic dye allergy status; Z91.040 Latex allergy status; Z79.82 Long term (current) use of aspirin; Z79.899 Other long term (current) drug therapy
CPT/HCPCS: 0241U; 71045; 80048; 80076; 83605; 83735; 83880; 84484; 85025; 85610; 87040; 93005; 94640; 99285; J2919; J3475

== ENCOUNTER → 2024-03-10 14:45 | Outpatient (BNV) | payer BC, SELFPAY | PROVIDERS: Admitting Provider Student in an Organized Health Care Education/Training Program; Emergency Provider Student in an Organized Health Care Education/Training Program; PCP Registered Nurse; Visit Provider Student in an Organized Health Care Education/Training Program | DX: J44.1 Chronic obstructive pulmonary disease with (acute) exacerbation (principal) | CPT/HCPCS: 99223; 99231; 99232; 99239 ==

== ENCOUNTER 2024-03-15 09:16 | Outpatient (AMB) | payer BC, SELFPAY ==
[2024-03-15 09:17] VITALS: BP 140/70; PULSE 74; O2SAT 95; BMI 34.0
--- NOTE | 2024-03-15 09:17 | MHC.OFFVIS ---
Vital Signs 03/15/24 09:17 Height 5 ft 1 in Weight 180 lb BMI 34.0 BP 140/70 H Blood Pressure Location Lt brachial Position Sitting Pulse 74 Pulse Source Pulse Oximeter Pulse Oximetry (%) 95 Oxygen Delivery Method Room Air Comment 3 Liters Oxygen([facility]) Intake Visit Reasons: COPD/Hosp Follow Up Front End Alignment Specialist Required: No Allergies Iodinated Contrast Media [IV CONTRAST] Allergy (Intermediate, Verified 03/15/24 09:19) HIVES latex [LATEX] Allergy (Unknown, Verified 03/15/24 09:19) RASH morphine [MORPHINE] Adverse Reaction (Unknown, Verified 03/15/24 09:19) VOMITING HPI Comments Details: The patient is a 59 year woman with a known history of tobacco dependency and COPD. Apparently back in February she developed worsening respiratory symptoms and was admitted to the hospital with COPD exacerbation. While she was there the patient did have a CT scan of the chest which was personally reviewed by me. It appears patient does have underlying pulmonary nodules subcentimeter in size, as well as, emphysema evidence of bronchitis. The patient does use oxygen activity. She also benefits from using oxygen while sleeping. The patient also needs to quit smoking. She understands the has is having oxygen and smoking. 07/19/2023 the patient is here for a pulmonary follow-up visit. Overall she is doing about the same. She has not using the oxygen regularly. She did have an overnight oximetry done several months ago on 2 L nasal cannula demonstrating that she actually does require the 2 L and actually would benefit from a little more oxygen. However, she has not using it at also I did advise her just to go back on using the oxygen. She has significant trigeminal neuralgia and neuropathy in general making it difficult for her to have anything over head and ear area. Therefore, she is going to have to figure out a way that would work for her. She does not tolerate a oxygen mask either because of the same problem. She is going to look to see if she can find a solution otherwise will can call [facility] to see if they can help her. The patient unfortunately she continues to smoke cigarettes. She does want to quit she wants to try the Nicotrol nasal spray. Will send to the pharmacy for her to try. The patient also did have pulmonary function studies that [facility] last year. She does have significant COPD. We do not have those PFTs available at this time but we will request them. She will be a great candidate for pulmonary rehabilitation at this time. The patient also had a CT scan of the chest back in February 2023 demonstrating multiple nodules largest 1 measuring 5 mm in size. She is high risk for malignancy due to her smoking history therefore she will have a repeat CT scan the fall 2023. 01/20/2024 the patient is here for a pulmonary follow-up visit. The patient has been hospitalized now about 3 times since we last spoke. I did evaluate her in the hospital as well. Has had significant wheezing. Has been requiring prednisone. Indeed she may have an allergic component to her bronchospasms. She does have significant eosinophilia. therefore, will go ahead and request additional testing including allergy testing so we can address her persistent bronchospasms. Currently she is on 40 mg of prednisone. She only taper. We did go over her inhalers. She needs to also continue to use her nebulizer therapy 2 to 4 times a day. Trelegy inhaler will be effective for her. She will go ahead and start that inhaler and we did instruct her how to use it. The patient is also using her oxygen. We did do a brief walking oximetry to make sure that she was getting adequate oxygenation. She need to continue using 2 L with activity. She does not using her nose because it does aggravate her nose so therefore she does only get some administration. The patient also has underlying daytime drowsiness. It was documented the patient is snoring. She also has headaches in the morning. The patient does have an elevated Westlake score of 10/24. He is using oxygen with sleep. Will go ahead and request an in-lab sleep study at this time. 03/15/2024 the patient is here for a pulmonary follow-up visit. The patient is here for hospital follow-up visit. She has had multiple hospitalizations since the last visit. She has been having worsening respiratory symptoms. She is on currently on prednisone. She is tapering down. We did talk about her blood work demonstrating a low IgG level. I explained to her hypogammaglobulinemia can result in smoldering infections and could potentially worsen her respiratory issues and it could be driving her exacerbations. We talked about augmentation therapy. Will go ahead and repeat her levels once she is off the prednisone to see if she still low. If she is still low will talk about augmentation therapy further. In addition to that she did have a sleep study. It was an in-lab study. She did not have any evidence of sleep apnea. The patient actually just needs to be on oxygen. She can use 1 L at nighttime. We can always check an overnight oximetry on 1 L to make sure sufficient. In addition to that she is using the portable oxygen concentrator with did ask conserving device tank. The patient was walk today she needs 2 L pulse at rest and 3 L pulse with activity. When she is at home with the continue his oxygen she can stay on 2 liters/minute. Although when she is doing any kind strained his activity such as going up a flight of stairs or going showering she should be on 3 liters/minute. The patient feels comfortable with that. She continues use her respiratory therapy as prescribed. The patient did have a CT scan of the chest back in 03/03/2023 demonstrating multiple pulmonary nodules and chronic bronchitis. Largest nodule measuring 5 mm in size. She will need another CT scan now. The patient follow-up in 3-4 weeks and will review the CT scan at that time. [facility] Medical History (Updated 03/15/24 @ 09:28 by Denys Henriquez MD) Hypogammaglobulinemia Smoker JUANITO (obstructive sleep apnea) Allergies Hypertension Elevated troponin COPD (chronic obstructive pulmonary disease) Chronic hypercapnic respiratory failure Trigeminal neuralgia Pulmonary nodules Mixed hyperlipidemia Peripheral neuropathy Tobacco use disorder Mood disorder Surgical History History of esophagogastroduodenoscopy (EGD) History of colonoscopy History of lumbar discectomy History of tubal ligation History of excision of mass History of shoulder surgery Social History Household Members: Spouse Housing: [facility] Do you presently have visiting nurse or other home services: Yes Alcohol intake: former Comment: pt refuses bed alarm. Patient Tobacco Use Status: Current everyday Tobacco user Tobacco use type: Cigarette Cigarette Packs Per Day: 1 Cigarettes Per Day: 20.0 Years Smoked: 40 e-Cigarette/Vaping Use: Never Used Second Hand Smoke Exposure: No Substance Use Type: Marijuana Advance Directives Date on File: 03/09/23 service: No Review of Systems Const Reports daytime sleepiness, Denies fever(s), Reports headache(s) and Reports snoring Eyes Denies change in vision ENT Reports headache(s) and Reports nasal congestion Card Denies chest pain and Reports dyspnea on exertion Resp Reports chest congestion, Reports cough, Reports dyspnea on exertion, Reports snoring and Reports wheezing GI Reports no additional complaints Musc Reports no additional complaints Skin/Breast Denies rash Neuro Reports headache(s) Luis/Lymph Denies lymphadenopathy Aller/Immun Reports no additional complaints and Reports wheezing Physical Exam Vital Signs: Last Vital Signs Pulse 74 03/15/24 09:17 BP 140/70 H 03/15/24 09:17 Pulse Ox 95 03/15/24 09:17 Oxygen Delivery Method Room Air 03/15/24 09:17 BMI result Body Mass Index 34.0 Last Vital Signs Temp 97.6 F 12/12/23 08:00 Pulse 110 H 12/12/23 09:52 Resp 22 H 12/12/23 09:52 BP 170/89 H 12/12/23 08:00 Pulse Ox 92 12/12/23 08:00 O2 Del Method Nasal Cannula 12/12/23 08:00 O2 Flow Rate 2 12/12/23 08:00 FiO2 28 12/11/23 04:00 BMI result Body Mass Index 30.6 Const General: alert Limitations: other limitations (on BIPAP mask) HEENT Head: Yes normocephalic and Yes atraumatic Neck Neck: Yes trachea midline, Yes supple and Yes no JVD Chest Chest palpation & inspection: normal inspection of the chest Resp Effort & Inspection: prolonged expiratory phase Auscultation: wheezes throughout and diminished lung sounds Cardio Rate: regular rate Rhythm: regular rhythm Heart sounds: S1 normal heart sound present, S2 normal heart sound present, no gallops and Murmur heart sound present systolic early GI Auscultation: normal bowel sounds Skin General skin exam: no rashes or lesions noted Neuro General: no focal motor deficits Extrem General: Yes no clubbing, cyanosis or edema Results Reviewed Results Reviewed: personally reviewed CT chest 02/2023 with pulmonary nodules and emphysema Assessment & Plan Assessment & Plan (1) Asthma: Code(s): J45.909 - Unspecified asthma, uncomplicated Category: Medical Qualifiers: Asthma complication type: with acute exacerbation Asthma persistence: persistent Asthma severity: severe Qualified Code(s): J45.51 - Severe persistent asthma with (acute) exacerbation (2) JUANITO (obstructive sleep apnea): Code(s): G47.33 - Obstructive sleep apnea (adult) (pediatric) Category: Medical (3) Tobacco use disorder: Code(s): F17.200 - Nicotine dependence, unspecified, uncomplicated Category: Medical (4) COPD (chronic obstructive pulmonary disease): Code(s): J44.9 - Chronic obstructive pulmonary disease, unspecified Category: Medical Qualifiers: COPD type: chronic bronchitis Chronic bronchitis type: simple Qualified Code(s): J41.0 - Simple chronic bronchitis (5) Pulmonary nodules: Code(s): R91.8 - Other nonspecific abnormal finding of lung field Category: Medical (6) Allergies: Code(s): T78.40XA - Allergy, unspecified, initial encounter Category: Medical Qualifiers: Encounter type: initial encounter Qualified Code(s): T78.40XA - Allergy, unspecified, initial encounter (7) Hypogammaglobulinemia: Code(s): D80.1 - Nonfamilial hypogammaglobulinemia Category: Medical Plan Trelegy prednisone taper bloodwork in 2 weeks continue oxygen supplementation with activity and sleep Does not qualify for APAP at this time smoking cessation repeat CT chest Fall 2023 consider IVIG therapy continue oxygen 1L/min while sleeping, 2l/pulse at rest and 3l/pulse with activity F/U 2-4 weeks Orders: Orders Immunoglobulin G Subclasses Today D80.1 - Nonfamilial hypogammaglobulinemia Complete Blood Count Auto Diff Today D80.1 - Nonfamilial hypogammaglobulinemia Basic Metabolic Panel Today D80.1 - Nonfamilial hypogammaglobulinemia CT chest wo IV con Today D80.1 - Nonfamilial hypogammaglobulinemia Coding Level of Care Code Est Pt Level 5 (27553) Complex EM visit Add On G2211 Diagnoses Severe persistent asthma with acute exacerbation J45.51 Asthma complication type: with acute exacerbation Asthma persistence: persistent Asthma severity: severe JUANITO (obstructive sleep apnea) G47.33 Tobacco use disorder F17.200 Simple chronic bronchitis J41.0 COPD type: chronic bronchitis Chronic bronchitis type: simple Pulmonary nodules R91.8 Allergy, initial encounter T78.40XA Encounter type: initial encounter Hypogammaglobulinemia D80.1 Time Spent (min) 45
== END 2024-03-15 10:07 | disposition home or self-care (01) ==
PROVIDERS: PCP Registered Nurse; Visit Provider Hospitalist
DX: J45.51 Severe persistent asthma with (acute) exacerbation (principal); G47.33 Obstructive sleep apnea (adult) (pediatric); F17.210 Nicotine dependence, cigarettes, uncomplicated; R91.8 Other nonspecific abnormal finding of lung field; D80.1 Nonfamilial hypogammaglobulinemia
CPT/HCPCS: 99215

== ENCOUNTER → 2024-03-15 09:16 | Outpatient (BNVA) | payer BC, SELFPAY | PROVIDERS: PCP Registered Nurse; Visit Provider Hospitalist ==

== ENCOUNTER 2024-03-24 10:53 | Inpatient (IN) | payer BC, MEDICARE, SELFPAY ==
[2024-03-24] VITALS (9 sets, daily range): BP systolic 124–171; BP diastolic 61–81; PULSE 61–82; RESP 17–24; TEMP 36.6; O2SAT 93–98; BMI 35.6
--- NOTE | ~2024-03-24 | XR_ITS ---
EXAMINATION: XR CHEST CLINICAL INFORMATION: Shortness of breath. COPD. COMPARISON: Chest radiograph from 03/10/2024. TECHNIQUE: Frontal view of the chest was obtained. FINDINGS: The lungs are well expanded. No evidence of focal consolidation, pleural effusion, pulmonary edema, or pneumothorax. The cardiomediastinal silhouette is within normal limits. No acute osseous abnormalities. XR/XR chest 1V IMPRESSION: No radiographically evident acute pulmonary abnormalities. Electronically signed by: Andrei Junior DO 03/24/2024 02:22 PM EDT
--- NOTE | 2024-03-24 10:55 | ECG_ITS ---
Test Reason : sob Blood Pressure : / mmHG Vent. Rate : 074 BPM Atrial Rate : 074 BPM P-R Int : 140 ms QRS Dur : 082 ms QT Int : 400 ms P-R-T Axes : 055 064 038 degrees QTc Int : 444 ms Normal sinus rhythm Normal ECG When compared with ECG of 10-MAR-2024 12:05, No significant change was found Referred By: Imtiaz Burk Electronically Signed By:HARRIET ANDRES MD
--- NOTE | 2024-03-24 11:10 | ED_ITS ---
HPI - General Adult General Chief complaint: Dyspnea Stated complaint: sob, hx copd Time Seen by Provider: 03/24/24 11:18 Source: patient and EMS Mode of arrival: EMS Limitations: no limitations History of Present Illness ED Provider: Aviva GOMES HPI narrative: 59-year-old female history of asthma, hypercapnic respiratory failure, COPD on 1-4 L nasal cannula depending on whether or not she is exerting herself presents to the emergency department with dry cough, shortness of breath that started at 02:00 has taken multiple treatments prior to arrival with little to no relief. She tells me this feels like her typical episode of COPD. She quit smoking just a few days ago. She denies associated chest pain, fevers, chills, nausea, vomiting abdominal pain, headache, vision changes, dizziness and weakness. Related Data Home Medications ?Medication ?Instructions ?Recorded ?Confirmed atorvastatin 80 mg tablet 80 mg PO BEDTIME 03/04/23 03/10/24 [id number]-[id number]-[id number] 1 tab PO DAILY PRN Headache 03/04/23 03/10/24 50 mg-325 mg-40 mg tablet duloxetine 60 mg capsule,delayed 60 mg PO BID 03/04/23 03/10/24 release gabapentin 300 mg capsule 1,200 mg PO TID 03/04/23 03/10/24 hydrocodone 5 mg-acetaminophen 325 1 tab PO BID PRN Pain 03/04/23 03/10/24 mg tablet hyoscyamine sulfate 0.125 mg tablet 0.125 - 0.25 mg PO Q4-6H PRN 03/04/23 03/10/24 Abdominal Discomfort lorazepam 1 mg tablet 1 mg PO DAILY PRN Anxiety 03/04/23 03/10/24 oxcarbazepine 600 mg tablet 600 mg PO BID 03/04/23 03/10/24 Oxygen Home Use 04/16/23 03/10/24 prazosin 2 mg capsule 2 mg PO BEDTIME 04/16/23 03/10/24 baclofen 15 mg tablet 15 mg PO TID 01/10/24 03/10/24 lidocaine 4 % topical cream 1 appl topical DAILY PRN Pain 01/17/24 03/10/24 vitamin B12 0.5 mg-folic acid 1 mg 1 tab PO DAILY 01/18/24 03/10/24 tablet albuterol sulfate 90 mcg/actuation 2 puff inhalation Q4H PRN 01/31/24 03/10/24 aerosol inhaler Shortness Of Breath Or Wheezing fluticasone fur. 200 mcg-umeclid 1 inh inhalation DAILY 02/14/24 03/10/24 62.5 mcg-vilant 25 mcg inhalat.powder (Trelegy Ellipta) Previous Rx's ?Medication ?Instructions ?Recorded aspirin 81 mg tablet,delayed 81 mg PO DAILY #90 tabs 12/16/23 release nebulizer and compressor #1 ea 12/16/23 furosemide 20 mg tablet (Lasix) 20 mg PO DAILY #7 tabs 01/10/24 verapamil 120 mg tablet 120 mg PO BID #60 tabs 01/24/24 guaifenesin 100 mg/5 mL oral liquid 200 mg (10 mL) PO Q6H #473 mL 02/16/24 ipratropium 0.5 mg-albuterol 3 mg 3 ml inhalation Q4H PRN for 03/02/24 (2.5 mg base)/3 mL nebulization dyspnea #180 mL soln nicotine (polacrilex) 4 mg buccal 4 mg buccal Q4-8H PRN nicotine 03/10/24 mini lozenge (Nicorette) cravings #81 ea prednisone 20 mg tablet 40 mg (2 x 20 mg) PO DAILY #10 tabs 03/13/24 Allergies Allergy/AdvReac Type Severity Reaction Status Date / Time Iodinated Contrast Media Allergy Intermediate HIVES Verified 03/24/24 11:12 [IV CONTRAST] latex [LATEX] Allergy Unknown RASH Verified 03/15/24 09:19 morphine [MORPHINE] AdvReac Unknown VOMITING Verified 03/15/24 09:19 Review of Systems 2 Review of Systems: Yes all other systems are reviewed and are negative [facility] Past Medical History Attestation statement: The following information was validated with the patient. Source: old records reviewed and nursing notes reviewed Medical History Hypogammaglobulinemia Smoker JUANITO (obstructive sleep apnea) Allergies Hypertension Elevated troponin COPD (chronic obstructive pulmonary disease) Chronic hypercapnic respiratory failure Trigeminal neuralgia Pulmonary nodules Mixed hyperlipidemia Peripheral neuropathy Tobacco use disorder Mood disorder Surgical History History of esophagogastroduodenoscopy (EGD) History of colonoscopy History of lumbar discectomy History of tubal ligation History of excision of mass History of shoulder surgery Social History Social History Household Members: Spouse Housing: Condominium Do you presently have visiting nurse or other home services: Yes Alcohol intake: former Comment: pt refuses bed alarm. Patient Tobacco Use Status: Current everyday Tobacco user Tobacco use type: Cigarette Cigarette Packs Per Day: 1 Cigarettes Per Day: 20.0 Years Smoked: 40 Smoked in Last 30 Days: Yes e-Cigarette/Vaping Use: Never Used Second Hand Smoke Exposure: No Use of substances other than those prescribed or required for medical reasons: No Substance Use Type: Marijuana Advance Directives: Yes Advance Directives on File: Yes Advance Directives Date on File: 03/09/23 service: No Physical Exam ED Vital Signs: Vital Signs - 24 hr 03/24/24 11:06 03/24/24 12:00 03/24/24 14:10 Temperature 97.8 F 97.9 F Pulse Rate 70 61 78 Respiratory Rate 22 H 18 22 H Blood Pressure 154/71 H 167/75 H Pulse Oximetry 94 93 Oxygen Delivery Method Nasal Cannula Nasal Cannula Oxygen Flow Rate 2 BMI result Body Mass Index 35.6 vss Appearance: Alert.? Oriented X3.? + mild acute distress.? Head: Normocephalic, atraumatic, no step-offs or deformities Eyes: Pupils equal, round and reactive to light.? ENT: Pharynx normal.? Neck: Normal inspection.? Neck supple.? CVS: Normal heart rate and rhythm.? Pulses normal.? Respiratory: + Mild respiratory distress.? Breath sounds diminished bilaterally with inspiratory and expiratory wheezing.? Abdomen: Soft and nontender.? Skin: Skin warm and dry.? Normal skin color.? Normal skin turgor.? Extremities: No lower extremity edema.? No calf ttp. 5/5 strength to bilateral upper and lower extremities Back: No midline tenderness, no C-spine tenderness, full range of motion, no CVA tenderness bilaterally Neuro: Oriented X 3.? No motor deficit.? No sensory deficit. CN 2-12 intact Course Reevaluation(s) Reevaluation #1: CBC unremarkable. Chemistry with elevated carbon dioxide. Mag 3.6 which was given IV Mag. Initial troponin 36.2 repeat troponin pending nonischemic EKG this is likely secondary to demand ischemia. Normal BNP. Chest x-ray pending Sign out to Irais. Time: 13:23 Reevaluation #2: Patient continues to be short of breath. Will get admitted. Patient's clinical presentation is not consistent with sepsis (@1500). Time: 15:06 Medications Administered Discontinued Medications Generic Name Dose Route Start Last Admin Trade Name Katya PRN Reason Stop Dose Admin Albuterol Sulfate 5 mg/ 0 mg 03/24/24 11:22 03/24/24 11:59 Albuterol/Ipratropium 3 ml INHALE 03/24/24 11:23 1 each ONCE ONE Administration Magnesium Sulfate 2 gm in 50 mls @ 25 mls/hr 03/24/24 11:11 03/24/24 13:24 Magnesium Sulfate/H2o IV 03/24/24 13:10 Infused ONCE ONE Infusion Methylprednisolone Sodium Succinate 125 mg 03/24/24 11:11 03/24/24 11:17 Methylprednisolone Sod Succ 125 Mg/2 Ml Vial IVPUSH 03/24/24 11:12 125 mg ONCE ONE Administration Medical Decision Making Medical Decision Making MDM Narrative: 59-year-old female presents with shortness of breath, wheezing started at 02:00. Recently quit smoking. Physical exam diminished breath sounds bilaterally with inspiratory and expiratory wheezing. Mild acute respiratory distress. History and physical exam concerning for chronic lung disease versus asthma versus viral illness. Unlikely pneumonia, PE, ACS. Plan labs, imaging, viral testing Differential Diagnosis Differential Diagnoses: The differential diagnosis associated with the presentation includes History and physical exam concerning for chronic lung disease versus asthma versus viral illness. Unlikely pneumonia, PE, ACS. Admission/Observation Consideration of admission/observation: Escalation of care including admission/observation considered Possible Lab Data [facility] Lab Attestation statement: I reviewed the patient's lab results. 03/24/24 11:44 03/24/24 11:44 Labs: Lab Results 03/24/24 03/24/24 03/24/24 Range/Units 11:44 11:46 13:47 WBC 10.8 (4.8-10.8) X10*3/uL RBC 4.18 L (4.20-5.50) X10*6/uL Hgb 13.7 (12.0-16.0) g/dl Hct 42.3 (37.0-47.0) % MCV 101.2 H (80.0-98.0) fL MCH 32.8 (27.0-33.0) pg MCHC 32.4 (31.0-35.0) g/dl RDW 13.4 (11.0-16.0) % Plt Count 379 (160-400) X10*3/uL MPV 9.2 L (9.4-12.3) fL Immature Gran % (Auto) 0.3 (0.0-0.4) % Neut % (Auto) 69.5 (45-73) % Lymph % (Auto) 18.9 L (20-40) % Sutter % (Auto) 10.3 (2-11) % Eos % (Auto) 0.6 (0-4) % Baso % (Auto) 0.4 (0-2) % Lymph # (Auto) 2.0 (1.2-4.9) X10*3/uL Sutter # (Auto) 1.1 (0.1-1.2) X10*3/uL Eos # (Auto) 0.1 (0.0-0.4) X10*3/uL Baso # (Auto) 0.0 (0.0-0.2) X10*3/uL Abs Immat Gran (auto) 0.03 (0.00-0.03) X10*3/uL Absolute Neuts (auto) 7.5 (2.0-8.3) x10*3/uL Absolute Nucleated RBC 0.000 (0.0-0.012) X10*3/uL Nucleated RBC % (auto) 0.0 (0.0-0.2) /100WBC PT 9.8 L (10.9-12.4) SEC INR 0.8 L (0.9-1.1) VBG pH 7.42 (7.32-7.43) VBG pCO2 61 mmHg VBG pO2 60 mmHg VBG HCO3 40 H (22-26) mmol/L VBG O2 Saturation 88.0 % VBG Base Excess 13.3 mmol/L Sodium 144 (135-145) mmol/L Potassium 3.5 D (3.3-5.1) mmol/L Chloride 101 (96-108) mmol/L Carbon Dioxide 36 H (22-29) mmol/L Anion Gap 11 L (12-20) BUN 12 (9-16) mg/dL Creatinine 0.71 (0.5-1.4) mg/dL Estim Creat Clear Calc 82.5 Estimated GFR > 60 Random Glucose 113 (60-115) mg/dL Calcium 9.4 (8.4-10.2) mg/dL Magnesium 3.6 H* (1.6-2.6) mg/dL Total Bilirubin 0.3 (0.0-1.0) mg/dL AST 26 (5-31) U/L ALT 48 H (0-31) U/L Alkaline Phosphatase 121 H (39-117) U/L Troponin I High Sens 36.2 H D 31.7 H (<3.5-17.0) ng/L B-Natriuretic Peptide 67 (<100) pg/mL Total Protein 6.7 (6.5-8.0) g/dL Albumin 4.2 (3.5-5.0) g/dL Influenza Type A (PCR) NEGATIVE (Negative) Influenza Type B (PCR) NEGATIVE (Negative) RSV RNA Qual (PCR) NEGATIVE (Negative) SARS-CoV-2 RNA (RT-PCR) NEGATIVE (Negative) Independent Interpretation I performed an independent interpretation of an: EKG and Plain X-Ray Radiology Impression Discussion of test interpretation with radiology: I have reviewed the radiologist's reading. External Record Review External record reviewed: Inpatient record, Office record, Outpatient record, Prior outpatient labs, Prior outpatient radiology, Primary care record and Outside ED record Critical Care Time Critical Care Time Critical Care Time: Yes Total Critical Care Time: 35 Attestation: I attest to this time spent taking care of the patient, obtaining history, physical, reviewing labs, imaging, treatment of patients condition +/- specialist/hospitalist consult Discharge Plan Discharge Clinical Impression: Acute exacerbation of chronic obstructive airways disease Patient Disposition: Admitted As Inpatient Print Language: Romansh
[2024-03-24] MEDS: methylPREDNISolone Sod Succ 125 MG/2 ML VIAL IVPUSH (11:17)
[2024-03-24] MEDS: Magnesium Sulfate/H2O 2 GM/50 ML PIGGYBACK IV (11:18)
[2024-03-24 11:52] LABS: MANUAL DIFF FLAG NO
[2024-03-24 11:56] LABS: Basophils Percent Auto 0.4 % (0-2); Eosinophils Absolute Auto 0.1 X10*3/uL (0.0-0.4); Eosinophils Percent Auto 0.6 % (0-4); Hematocrit 42.3 % (37.0-47.0); Hemoglobin 13.7 g/dl (12.0-16.0); Imm Gran Abs Auto 0.03 X10*3/uL (0.00-0.03); Imm Gran Pct Auto 0.3 % (0.0-0.4); Lymphocytes Percent Auto 18.9 % (20-40); Mean Corpuscular HGB Conc 32.4 g/dl (31.0-35.0); Mean Corpuscular Hemoglobin 32.8 pg (27.0-33.0); Mean Corpuscular Volume 101.2 fL (80.0-98.0); Mean Platelet Volume 9.2 fL (9.4-12.3); Monocytes Absolute Auto 1.1 X10*3/uL (0.1-1.2); Monocytes Percent Auto 10.3 % (2-11); Neutrophils Absolute Auto 7.5 x10*3/uL (2.0-8.3); Neutrophils Percent Auto 69.5 % (45-73); Platelet Count 379 X10*3/uL (160-400); Red Blood Count 4.18 X10*6/uL (4.20-5.50); Red Cell Distribution Width 13.4 % (11.0-16.0); White Blood Count 10.8 X10*3/uL (4.8-10.8)
[2024-03-24] MEDS: Albuterol Sulfate 5 MG, Albuterol/Iprat 2.5/0.5MG 3 ML 3 ML INHALE (11:59)
[2024-03-24 12:02] LABS: Venous Blood Gas Refer to POC result
[2024-03-24 12:05] LABS: VBG Base Excess 13.3 mmol/L; VBG pCO2 61 mmHg; VBG pH 7.42 (7.32-7.43); VBG pO2 60 mmHg
[2024-03-24 12:06] LABS: INTERNATIONAL NORM RATIO 0.8 (0.9-1.1); Prothrombin Time 9.8 SEC (10.9-12.4)
[2024-03-24 12:06] LABS: VBG HCO3 40 mmol/L (22-26)
[2024-03-24 12:22] LABS: Alanine Aminotransferase 48 U/L (0-31); Albumin Level 4.2 g/dL (3.5-5.0); Alkaline Phosphatase 121 U/L (39-117); Anion Gap 11 (12-20); Aspartate Amino Transferase 26 U/L (5-31); B Type Natriuretic Peptide 67 pg/mL (<100); Bilirubin Total 0.3 mg/dL (0.0-1.0); Blood Urea Nitrogen 12 mg/dL (9-16); Calcium 9.4 mg/dL (8.4-10.2); Carbon Dioxide 36 mmol/L (22-29); Chloride 101 mmol/L (96-108); Creatinine Clr Calc Pharmacy 82.5; Estimated Glomerular Filt Rate > 60; Glucose Random 113 mg/dL (60-115); Magnesium 3.6 mg/dL (1.6-2.6); Potassium 3.5 mmol/L (3.3-5.1); Sodium 144 mmol/L (135-145); Total Protein 6.7 g/dL (6.5-8.0)
[2024-03-24 12:26] LABS: Troponin-I High Sensitivity 36.2 ng/L (<3.5-17.0)
[2024-03-24 12:38] LABS: Influenza A PCR NEGATIVE (Negative); Influenza B PCR NEGATIVE (Negative); Resp Syncy Virus RNA Qual PCR NEGATIVE (Negative); SARS COV2 PCR INHOUSE NEGATIVE (Negative)
--- NOTE | 2024-03-24 13:54 | PC.NURSE ---
pt reports muslce and hand tremors that have been going on for a few years. She says the past few days however they have gotton worse and she has dropped her coffee cup a few times
[2024-03-24 14:34] LABS: Troponin-I High Sensitivity 31.7 ng/L (<3.5-17.0)
[2024-03-24] MEDS: Baclofen 10 MG TABLET 15 MG PO ×2 (15:32→21:04)
[2024-03-24] MEDS: Gabapentin 600 MG TABLET 1200 MG PO (15:32)
--- NOTE | 2024-03-24 15:39 | P.HPHOSP_ITS ---
History of Present Illness Date of Service: 03/24/24 <ORESTES Sheridan - Last Filed: 03/24/24 16:39> Attending physician on admission: Saray Redman <ORESTES Sheridan - Last Filed: 03/24/24 16:39> Chief Complaint: SOB <ORESTES Sheridan - Last Filed: 03/24/24 16:39> Pt is a 59-year-old female with a PMH significant for?chronic hypoxic respiratory failure due to COPD on 3L at rest and 4L with exertion, active smoker, HTN, HLD, CVA, MVR, trigeminal neuralgia, occipital neuralgia, and mood disorder who presents to the ED with?intermittent SOB and PRECIADO times 2-3 days. Patient was recently admitted to the hospital on 03/10-03/13 and treated for acute on chronic hypoxic respiratory failure in the setting of COPD exacerbation. Reports initially did well when she went home, but became increasingly short of breath 3 days ago. Patient increased home O2 to 4L and attempted many home nebulizer and inhaler treatments to little effect. Was seen today by home health aide who called nursing agency who recommended patient go to the ED for further evaluation. Reports subjective fever, but does not have a home thermometer. Chronic nonproductive cough at baseline. Chest tightness associated with cough and deep breathing. No nausea, vomiting, abdominal pain. Denies chest pain/pressure, palpitations. Patient currently reports smoking around 3/4 of a pack of cigarettes daily. In the ED pt was tachypneic up to 22 and hypertensive up to 167/75. Labs were significant for bicarb of 36, magnesium 3 pt 6 ALT 48, alk-phos 121, and initial troponin 36.2 with repeat flat at 31.7. VBG pH 7.42 with pCO2 61 and bicarb 40. Tested negative for flu, COVID, and RSV. CXR showed no evidence acute pulmonary abnormality. EKG demonstrated normal sinus rhythm ischemic changes. Pt was treated with Solu-Medrol, Mag sulfate, DuoNeb, gabapentin, and baclofen. Pt will be admitted to the hospital for treatment and further evaluation of acute respiratory distress in the setting acute COPD exacerbation. <ORESTES Sheridan - Last Filed: 03/24/24 16:39> Review of Systems 2 Review of Systems: Increased SOB, PRECIADO Chronic nonproductive cough at baseline Chest tightness associated with cough and deep breathing Subjective fever No nausea, vomiting, abdominal pain Denies chest pain or palpitations <ORESTES Sheridan - Last Filed: 03/24/24 16:39> [facility] Medical History: Medical History Hypogammaglobulinemia Smoker JUANITO (obstructive sleep apnea) Allergies Hypertension Elevated troponin COPD (chronic obstructive pulmonary disease) Chronic hypercapnic respiratory failure Trigeminal neuralgia Pulmonary nodules Mixed hyperlipidemia Peripheral neuropathy Tobacco use disorder Mood disorder <ORESTES Sheridan - Last Filed: 03/24/24 16:39> Surgical History: Surgical History History of esophagogastroduodenoscopy (EGD) History of colonoscopy History of lumbar discectomy History of tubal ligation History of excision of mass History of shoulder surgery <ORESTES Sheridan - Last Filed: 03/24/24 16:39> Social History: Social History Household Members: Spouse Housing: Condominium Do you presently have visiting nurse or other home services: Yes Alcohol intake: former Comment: pt refuses bed alarm. Patient Tobacco Use Status: Former Tobacco user Tobacco use type: Cigarette Cigarette Packs Per Day: 4 Cigarettes Per Day: 80.0 Years Smoked: 40 Smoked in Last 30 Days: Yes e-Cigarette/Vaping Use: Former Use Patient Interested in Nicotine Replacement: No (offered and declined) Patient Given Instructions on How to Stop Smoking: Yes Date Education Initiated: 03/25/24 Second Hand Smoke Exposure: No Use of substances other than those prescribed or required for medical reasons: Yes Substance Use Type: Marijuana Substance Use Type Other:: edibles Substance Use Frequency: Daily Last Used Substance: Days (ago) Last Used Substance Other:: 3 days ago Currently Displaying Signs/Symptoms of Drug Intoxication Withdrawal: No Any prior treatment program specific to substance use: No Have you been hit, kicked, punched, or otherwise hurt by someone within the past year? If so, by whom?: No Do you feel safe in your current relationship?: Yes Is there a partner from a previous relationship who is making you feel unsafe now?: No Are you made to feel afraid or neglected: No Taoism Healthcare Practices: Yarsanism Advance Directives: Yes Advance Directives on File: Yes Advance Directives Date on File: 03/09/23 Do you have a plan to hurt others: No Plan Recently lost weight without trying: No Eating poorly because of decreased appetite: No Nutrition Risks: No Nutritional Risk Patient : No : No Poor oral hygiene: No service: No <ORESTES Sheridan - Last Filed: 03/24/24 16:39> Meds Allergies/Adverse reactions: Allergies Allergy/AdvReac Type Severity Reaction Status Date / Time Iodinated Contrast Media Allergy Intermediate HIVES Verified 03/24/24 11:12 [IV CONTRAST] latex [LATEX] Allergy Unknown RASH Verified 03/15/24 09:19 morphine [MORPHINE] AdvReac Unknown VOMITING Verified 03/15/24 09:19 <ORESTES Sheridan - Last Filed: 03/24/24 16:39> Home medications: Home Medications ?Medication ?Instructions ?Recorded ?Confirmed ?Last Taken ?Type atorvastatin 80 mg tablet 80 mg PO BEDTIME 03/04/23 03/24/24 03/23/24 History mctnchlqyr-xmbnvhmebmbkm-xxyoexfy 1 - 2 tab PO DAILY PRN Headache 03/04/23 03/24/24 1 Day Ago History 50 mg-325 mg-40 mg tablet ~01/16/24 duloxetine 60 mg capsule,delayed 60 mg PO BID 03/04/23 03/24/24 03/24/24 History release gabapentin 300 mg capsule 1,200 mg PO TID 03/04/23 03/24/24 03/24/24 History hydrocodone 5 mg-acetaminophen 325 1 tab PO BID PRN Pain 03/04/23 03/24/24 03/10/24 History mg tablet hyoscyamine sulfate 0.125 mg tablet 0.125 - 0.25 mg PO Q4-6H PRN 03/04/23 03/24/24 03/07/24 History Abdominal Discomfort lorazepam 1 mg tablet 0.5 mg PO DAILY PRN Anxiety 03/04/23 03/24/24 03/10/24 History oxcarbazepine 600 mg tablet 600 mg PO BID 03/04/23 03/24/24 03/24/24 History Oxygen Home Use 04/16/23 03/10/2403/10/24 History prazosin 2 mg capsule 2 mg PO BEDTIME 04/16/23 03/24/24 03/23/24 History baclofen 15 mg tablet 15 mg PO TID 01/10/24 03/24/24 03/24/24 History lidocaine 4 % topical cream 1 appl topical DAILY PRN Pain 01/17/24 03/24/24 03/10/24 History vitamin B12 0.5 mg-folic acid 1 mg 1 tab PO DAILY 01/18/24 03/24/24 03/24/24 History tablet albuterol sulfate 90 mcg/actuation 2 puff inhalation Q4H PRN 01/31/24 03/24/24 03/10/24 History aerosol inhaler Shortness Of Breath Or Wheezing fluticasone fur. 200 mcg-umeclid 1 inh inhalation DAILY 02/14/24 03/24/24 03/24/24 History 62.5 mcg-vilant 25 mcg inhalat.powder (Trelegy Ellipta) amlodipine 5 mg tablet 5 mg PO DAILY 03/24/24 03/24/24 03/24/24 History guaifenesin 100 mg/5 mL oral liquid 200 mg PO Q6H PRN Congestion 03/24/24 03/24/24 Unknown History <ORESTES Sheridan - Last Filed: 03/24/24 16:39> Physical Exam 2 Vital Signs and Narrative: Vital Signs: Last Vital Signs Temp 97.9 F 03/24/24 14:10 Pulse 78 03/24/24 14:10 Resp 22 H 03/24/24 14:10 BP 167/75 H 03/24/24 14:10 Pulse Ox 93 03/24/24 14:10 O2 Del Method Nasal Cannula 03/24/24 14:10 O2 Flow Rate 2 03/24/24 14:10 Oxygen Flow Rate 2 03/24/24 11:06 BMI result Body Mass Index 35.6 <ORESTES Sheridan - Last Filed: 03/24/24 16:39> General: AOx3, mild respiratory distress Resp: Diminished with mild diffuse expiratory wheezing bilaterally. Speaking in 2-3 word sentences due to increased work of breathing CVS: S1, S2, RRR GI: +BS, NT, no distention Skin: Warm, dry Neuro: Cranial nerves II-XII grossly intact bilaterally. Motor grossly intact bilaterally Extremities: No edema Psych: Appropriate affect <ORESTES Sheridan - Last Filed: 03/24/24 16:39> Results Labs CBC and Chem 7: 03/24/24 11:44 03/25/24 06:25 <ORESTES Sheridan - Last Filed: 03/24/24 16:39> Labs: Laboratory Results - last 24 hr 03/24/24 03/24/24 03/24/24 11:44 11:46 13:47 MCV 101.2 H MCH 32.8 MCHC 32.4 RDW 13.4 Plt Count 379 MPV 9.2 L Immature Gran % (Auto) 0.3 Neut % (Auto) 69.5 Lymph % (Auto) 18.9 L [place] % (Auto) 10.3 Eos % (Auto) 0.6 Baso % (Auto) 0.4 Lymph # (Auto) 2.0 [place] # (Auto) 1.1 Eos # (Auto) 0.1 Baso # (Auto) 0.0 Abs Immat Gran (auto) 0.03 Absolute Neuts (auto) 7.5 Absolute Nucleated RBC 0.000 Nucleated RBC % (auto) 0.0 PT 9.8 L INR 0.8 L VBG pH 7.42 VBG pCO2 61 VBG pO2 60 VBG HCO3 40 H VBG O2 Saturation 88.0 VBG Base Excess 13.3 Anion Gap 11 L Estim Creat Clear Calc 82.5 Estimated GFR > 60 Random Glucose 113 Calcium 9.4 Magnesium 3.6 H* Total Bilirubin 0.3 AST 26 ALT 48 H Alkaline Phosphatase 121 H Troponin I High Sens 36.2 H D 31.7 H B-Natriuretic Peptide 67 Total Protein 6.7 Albumin 4.2 Influenza Type A (PCR) NEGATIVE Influenza Type B (PCR) NEGATIVE RSV RNA Qual (PCR) NEGATIVE SARS-CoV-2 RNA (RT-PCR) NEGATIVE <ORESTES Sheridan - Last Filed: 03/24/24 16:39> Imaging Radiologist's Impressions: Impressions Chest X-Ray 03/24/24 11:50 IMPRESSION: No radiographically evident acute pulmonary abnormalities. Electronically signed by: Andrei Junior DO 03/24/2024 02:22 PM EDT RP <ORESTES Sheridan - Last Filed: 03/24/24 16:39> Assessment and Plan (1) Acute exacerbation of chronic obstructive airways disease: Status: Acute <ORESTES Sheridan - Last Filed: 03/24/24 16:39> Pt is a 59-year-old female with a PMH significant for?chronic hypoxic respiratory failure due to COPD on 3L at rest and 4L with exertion, active smoker, HTN, HLD, CVA, MVR, trigeminal neuralgia, occipital neuralgia, and mood disorder who presents to the ED with?intermittent SOB and PRECIADO times 2-3 days. Pt will be admitted to the hospital for treatment and further evaluation of acute respiratory distress in the setting acute COPD exacerbation. Acute on chronic respiratory distress in the setting of acute COPD exacerbation Increased SOB, PRECIADO not alleviated by home O2 or inhalers/nebulizers; mild respiratory distress, speaking in 2-3 word sentences due to increased work of breathing despite ED treatment No fever or productive cough, CXR negative, RSV/COVID/Flu negative Little concern for pneumonia, no sepsis Will treat Solu-Medrol, DuoNebs Titrate supplemental O2 >90, wean as tolerated to home 3L O2 at rest Monitor respiratory status closely, as patient with a history of need for BiPAP and ICU admission Hypermadnesmia Secondary to mag sulfate treatment in the ED Recheck mag tomorrow CVA/HLD Continue aspirin, statin HTN Continue amlodipine Trigeminal neuralgia Continue baclofen, gabapentin Nicotine dependence Pt reports can only tolerate mini lozenges Mood disorder Continue meds Chronic lower leg edema Compression stockings, home lasix Full Code Attending:?Dr. Redman DVT Prophylaxis: Lovenox Pt will require a hospitalization of at least two nights for treatment of?acute on chronic respiratory distress in the setting of acute COPD exacerbation that has failed outpatient therapy and not significantly improved after ED treatment with Mag sulfate, Solu-Medrol, and multiple DuoNebs. Patient will require hospital level care for administration of IV steroids, breathing treatments, and close monitoring of respiratory status given patient's history need for BiPAP and ICU admission. <ORESTES Sheridan - Last Filed: 03/24/24 16:39> Pt is a 59-year-old female with a PMH significant for?chronic hypoxic respiratory failure due to COPD on 3L at rest and 4L with exertion, active smoker, HTN, HLD, CVA, MVR, trigeminal neuralgia, occipital neuralgia, and mood disorder who presents to the ED with?intermittent SOB and PRECIADO times 2-3 days. Pt will be admitted to the hospital for treatment and further evaluation of acute respiratory distress in the setting acute COPD exacerbation. Acute on chronic respiratory distress in the setting of acute COPD exacerbation Increased SOB, PRECIADO not alleviated by home O2 or inhalers/nebulizers; mild respiratory distress, speaking in 2-3 word sentences due to increased work of breathing despite ED treatment No fever or productive cough, CXR negative, RSV/COVID/Flu negative Little concern for pneumonia, no sepsis Will treat Solu-Medrol, DuoNebs Titrate supplemental O2 >90, wean as tolerated to home 3L O2 at rest Monitor respiratory status closely, as patient with a history of need for BiPAP and ICU admission Hypermadnesmia Secondary to mag sulfate treatment in the ED Recheck mag tomorrow CVA/HLD Continue aspirin, statin HTN Continue amlodipine Trigeminal neuralgia Continue baclofen, gabapentin Nicotine dependence Pt reports can only tolerate mini lozenges Mood disorder Continue meds Chronic lower leg edema Compression stockings, home lasix Full Code Attending:?Dr. Redman DVT Prophylaxis: Lovenox Pt will require a hospitalization of at least two nights for treatment of?acute on chronic respiratory distress in the setting of acute COPD exacerbation that has failed outpatient therapy and not significantly improved after ED treatment with Mag sulfate, Solu-Medrol, and multiple DuoNebs. Patient will require hospital level care for administration of IV steroids, breathing treatments, and close monitoring of respiratory status given patient's history need for BiPAP and ICU admission. Addendum to history and physical by the advanced practice provider, ORESTES Pearce I interviewed and examined the patient. I discussed their presentation and management with the ALANA. I reviewed the history and physical and agree with the documentation, with the following additions and corrections: 59yo F with chronic hypoxia on 3-4L O2 due to COPD but continues to smoke presenting with 3d of worsening dyspnea that started after she finished last cousre of prednisone she was prescribed after her last admission for COPD 03/10-03/13/24. 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
[2024-03-24] MEDS: Albuterol Sulfate 2.5 MG, Albuterol/Iprat 2.5/0.5MG 3 ML 3 ML INHALE (16:06)
--- NOTE | 2024-03-24 17:22 | PHA.MEDREC ---
Addendum entered by Stefany Gracia RPh 03/24/24 17:36: Reviewed by [facility] Original Note: Pharmacy Consult ? Medication Reconciliation Pharmacy has completed the medication reconciliation.Spoke to patient to confirm med list. Patient had a list of mediations with her. patient states she took her medications today in the morning.
--- NOTE | 2024-03-24 18:39 | PC.NURSE ---
pt on 2L o2 (this is her baseline at home). She is speaking in short sentences, reports shortness of breath. pt has been sleeping in a recliner at home for a few months
--- NOTE | 2024-03-24 18:42 | MHC.EDTECH ---
Dinner tray given
[2024-03-24] MEDS: Albuterol/Iprat 2.5/0.5MG 3 ML AMPUL.NEB INHALE ×2 (19:02→23:02)
[2024-03-24] MEDS: LORazepam 0.5 MG TABLET PO (21:01)
[2024-03-24] MEDS: Prazosin HCL 1 MG CAPSULE 2 MG PO (21:03)
[2024-03-24] MEDS: Atorvastatin Calcium 80 MG TABLET PO (21:03)
[2024-03-24] MEDS: DULoxetine HCl 60 MG CAPSULE.DR PO (21:03)
[2024-03-24] MEDS: Gabapentin 400 MG CAPSULE 1200 MG PO (21:03)
[2024-03-24] MEDS: OXcarbazepine 300 MG TABLET 600 MG PO (21:04)
--- NOTE | 2024-03-24 21:26 | PC.NURSE ---
pt reports doctors orders for o2 are: 1L NC at bedtime, 2L NC at rest and 3L NC with activity and o2 sats 88-93%. pt currently in stretcher ready to sleep, o2 down to 1L NC and sats remain 93-94%. nad. pt requested po ativan prn as feeling slightly anxious. pt appears to calm down and smiling with verbal reassurance and prn given per aug. pt also medicated per aug, awaiting verapamil from pharmacy. call dumont within reach.
[2024-03-24] MEDS: methylPREDNISolone Sod Succ 40 MG/ML VIAL IVPUSH (22:26)
[2024-03-24] MEDS: VerapamiL HCL 120 MG TABLET PO (22:26)
[2024-03-24] MEDS: Calcium Carbonate 750 MG TAB.CHEW PO (22:46)
--- NOTE | 2024-03-24 23:49 | PC.NURSE ---
pt wheezing requested prn breathing tx, states she feels better but auscultated bilat expiratory wheezing. sats 90% 1L NC, back up to 2L NC. pt appears comfortable. made aware.
[2024-03-25] VITALS (12 sets, daily range): BP systolic 133–153; BP diastolic 62–72; PULSE 78–87; RESP 16–20; TEMP 36.1–36.2; O2SAT 91–95; BMI 35.5
[2024-03-25] MEDS: 0.9 % Sodium Chloride Flush 3 ML SYRINGE IVFLUSH ×4 (01:39→20:16)
[2024-03-25] MEDS: Albuterol/Iprat 2.5/0.5MG 3 ML AMPUL.NEB INHALE ×5 (05:09→19:11)
[2024-03-25] MEDS: Baclofen 10 MG TABLET 15 MG PO ×3 (05:30→20:13)
[2024-03-25] MEDS: Gabapentin 400 MG CAPSULE 1200 MG PO ×3 (05:31→20:12)
[2024-03-25] MEDS: DULoxetine HCl 60 MG CAPSULE.DR PO ×2 (05:31→20:13)
[2024-03-25] MEDS: OXcarbazepine 300 MG TABLET 600 MG PO ×2 (05:32→20:14)
[2024-03-25 07:05] LABS: Anion Gap 11 (12-20); Blood Urea Nitrogen 11 mg/dL (9-16); Carbon Dioxide 31 mmol/L (22-29); Chloride 102 mmol/L (96-108); Creatinine Clr Calc Pharmacy 87.3; Estimated Glomerular Filt Rate > 60; Glucose Random 130 mg/dL (60-115); Magnesium 2.2 mg/dL (1.6-2.6); Potassium 3.3 mmol/L (3.3-5.1); Sodium 141 mmol/L (135-145)
[2024-03-25] MEDS: Cyanocobalamin (Vitamin B-12) 500 MCG TABLET PO (10:34)
[2024-03-25] MEDS: Folic Acid 1 MG TABLET PO (10:34)
[2024-03-25] MEDS: methylPREDNISolone Sod Succ 40 MG/ML VIAL IVPUSH ×2 (10:34→23:09)
[2024-03-25] MEDS: Aspirin Enteric Coated 81 MG TABLET.DR PO (10:34)
[2024-03-25] MEDS: Furosemide 20 MG TABLET PO (10:41)
[2024-03-25] MEDS: VerapamiL HCL 120 MG TABLET PO ×2 (10:42→20:14)
[2024-03-25] MEDS: Fluticasone/Umeclidinium/Vilanterol 200/62.5/25 BLST.W.DEV 1 PUFF INHALE (11:32)
--- NOTE | 2024-03-25 14:20 | P.PNIM_ITS ---
Subjective Subjective Date of Service: 03/25/24 Interval History: dyspnea, wheezing slightly improved Review of Systems Review of Systems: Yes all other systems are reviewed and are negative Physical Exam 2 Vital Signs: Vital Signs: Last Vital Signs Temp 97.0 F 03/25/24 08:00 Pulse 78 03/25/24 13:52 Resp 20 03/25/24 11:35 BP 141/65 H 03/25/24 13:52 Pulse Ox 91 L 03/25/24 13:52 O2 Del Method Nasal Cannula 03/25/24 08:00 O2 Flow Rate 2 03/25/24 08:00 Oxygen Flow Rate 2 03/24/24 11:06 BMI result Body Mass Index 35.5 Gen: in no acute distress HEENT: sclera anicteric, moist mucus membranes Neck: supple Lungs: bilateral expiratory wheezing Heart: regular rate and rhythm, no murmurs Abd: soft, non-tender, non-distended Ext: no edema Skin: warm/well-perfused Neuro: alert and oriented x3, no focal findings Psych: appropriate affect Objective Data Active Medications Acetaminophen (Acetaminophen 325 Mg Tablet) 650 mg PO Q6H PRN PRN Reason: Pain, Mild (Pain Scale 1-3), fever or headache Hydrocodone Bitart/Acetaminophen (Hydrocodone Bit/Acetam 5/325 Tablet) 1 tab PO BID PRN PRN Reason: Pain, Moderate(Pain Scale 4-6) Albuterol/Ipratropium (Albuterol/Iprat 2.5/0.5mg 3 Ml Ampul.Neb) 3 ml INHALE RQ4H WHILE AWAKE [facility] Last Admin: 03/25/24 11:32 Dose: 3 ml Documented By: MARYLU Albuterol/Ipratropium (Albuterol/Iprat 2.5/0.5mg 3 Ml Ampul.Neb) 3 ml INHALE RQ4H WHILE AWAKE PRN PRN Reason: Shortness of Breath/Wheezing Last Admin: 03/25/24 05:09 Dose: 3 ml Documented By: CASSIDY Amlodipine Besylate (Amlodipine Besylate 5 Mg Tablet) 5 mg PO DAILY [facility]; Protocol Last Admin: 03/25/24 10:44 Dose: Not Given Documented By: EMRE Non-Admin Reason: patient refused Comments: pt states cardiology discontinued and does not want to take Aspirin (Aspirin Enteric Coated 81 Mg Tablet.) 81 mg PO DAILY [facility] Last Admin: 03/25/24 10:34 Dose: 81 mg Documented By: EMRE Atorvastatin Calcium (Atorvastatin Calcium 80 Mg Tablet) 80 mg PO BEDTIME [facility] Last Admin: 03/24/24 21:03 Dose: 80 mg Documented By: BIANKA Baclofen (Baclofen 10 Mg Tablet) 15 mg PO TID [facility] Last Admin: 03/25/24 05:30 Dose: 15 mg Documented By: JACKELINE Comments: Given now per patient request as okayed by Dr. Wilkes Calcium Carbonate (Calcium Carbonate 750 Mg Tab.Chew) 750 mg PO Q4H PRN PRN Reason: Heartburn Last Admin: 03/24/24 22:46 Dose: 750 mg Documented By: BIANKA Cyanocobalamin (Cyanocobalamin (Vitamin B-12) 500 Mcg Tablet) 500 mcg PO DAILY [facility] Last Admin: 03/25/24 10:34 Dose: 500 mcg Documented By: EMRE Duloxetine HCl (Duloxetine Hcl 60 Mg Capsule.) 60 mg PO BID [facility] Last Admin: 03/25/24 05:31 Dose: 60 mg Documented By: JACKELINE Comments: Given now per patient request as okayed by Dr. Wilkes Enoxaparin Sodium (Enoxaparin Sodium 40 Mg/0.4 Ml Syringe) 40 mg SUBCUT Q24H [facility] Last Admin: 03/24/24 17:56 Dose: Not Given Documented By: REY Non-Admin Reason: Patient Refused Fluticasone/Umeclidinium/Vilanterol (Fluticasone/Umeclidinium/Vilanterol 200/62.5/25 Blst.W.Dev) 1 puff INHALE DAILY [facility] Last Admin: 03/25/24 11:32 Dose: 1 puff Documented By: MARYLU Folic Acid (Folic Acid 1 Mg Tablet) 1 mg PO DAILY [facility] Last Admin: 03/25/24 10:34 Dose: 1 mg Documented By: EMRE Furosemide (Furosemide 20 Mg Tablet) 20 mg PO DAILY [facility]; Protocol Last Admin: 03/25/24 10:41 Dose: 20 mg Documented By: EMRE Gabapentin (Gabapentin 400 Mg Capsule) 1,200 mg PO TID [facility] Last Admin: 10/12/24 05:31 Dose: 1,200 mg Documented By: JACKELINE Comments: Given now per patient request as okayed by Dr. Wilkes Guaifenesin (Guaifenesin 200 Mg/10 Ml 10 Ml Liquid) 10 ml PO Q6H PRN PRN Reason: Congestion Lorazepam (Lorazepam 1 Mg Tablet) 1 mg PO DAILY PRN PRN Reason: Anxiety Magnesium Hydroxide (Milk Of Magnesia 30 Ml Oral.Susp) 30 ml PO DAILY PRN PRN Reason: Constipation Melatonin (Melatonin 3 Mg Tablet) 6 mg PO BEDTIME PRN PRN Reason: Insomnia Methylprednisolone Sodium Succinate (Methylprednisolone Sod Succ 40 Mg/Ml Vial) 40 mg IVPUSH Q12H [facility] Last Admin: 03/25/24 10:34 Dose: 40 mg Documented By: EMRE Ondansetron HCl (Ondansetron Hcl 4 Mg/2 Ml Vial) 4 mg IVPUSH Q8H PRN PRN Reason: Nausea and Vomiting Oxcarbazepine (Oxcarbazepine 300 Mg Tablet) 600 mg PO BID [facility] Last Admin: 03/25/24 05:32 Dose: 600 mg Documented By: JACKELINE Comments: Given now per patient request as okayed by Dr. Wilkes Prazosin HCl (Prazosin Hcl 1 Mg Capsule) 2 mg PO BEDTIME [facility]; Protocol Last Admin: 03/24/24 21:03 Dose: 2 mg Documented By: BIANKA Sodium Chloride (0.9 % Sodium Chloride Flush 3 Ml Syringe) 3 ml IVFLUSH QSHIFT [facility] Last Admin: 03/25/24 10:33 Dose: 3 ml Documented By: EMRE Verapamil HCl (Verapamil Hcl 120 Mg Tablet) 120 mg PO BID [facility]; Protocol Last Admin: 03/25/24 10:42 Dose: 120 mg Documented By: EMRE Labs 03/24/24 11:44 03/25/24 06:25 Labs: Laboratory Results - last 24 hr 03/24/24 03/25/24 03/25/24 13:47 06:00 06:25 Hold Purple Top SEE NOTE Cancelled Anion Gap 11 L Estim Creat Clear Calc 87.3 Estimated GFR > 60 Random Glucose 130 H Calcium 10.0 D Magnesium 2.2 Troponin I High Sens 31.7 H Assessment and Plan (1) Acute exacerbation of chronic obstructive airways disease: Status: Acute Plan d2 for 59yo F with chronic hypoxia on 3-4L O2 due to COPD with hx of inbubation , HTN, HLD, hx CVA, trigeminal/occipital neuralgia, mood disorder presenting with worsening dyspnea x2-3d, admitted for COPD exacerbation acute COPD exacerbation - continue IV methylprednisolone, standing/prn nebs - no evidence of bacterial infection, RSV/Covid-flu negative chronic hypoxic resp failure - continue home O2 HLD hx CVA - ASA, atorvastatin HTN - amlodipine trigeminal/occipital neuralgia - baclofen, gabapentin, oxcarbazepine, duloxetine tobacco abuse - NRT but pt only tolerates mini lozenges mood disorder - continue duloxetine + prazosin chronic leg edema - furosemide VTE ppx - enoxaparin dispo - PT recommends STR In my clinical judgment, the patient requires continued inpatient hospitalization for the following reasons: unrelieved wheezing, placement Total time managing care of this patient today: 35 minutes. Quality Stroke Does the patient have a stroke diagnosis?: No VTE Prior VTE?: No VTE Risk Level:: Medical - moderate - high VTE Device Contraindication: Treatment Not Indicated VTE Drug Contraindication: N/A - Med Ordered
[2024-03-25] MEDS: HYDROmorphone HCl 0.5 MG/0.5 ML SYRINGE 0.25 MG IVPUSH (19:25)
[2024-03-25] MEDS: Lidocaine 4 % Patch ADH..PATCH 1 PATCH TRANSDERMA (19:26)
[2024-03-25] MEDS: Atorvastatin Calcium 80 MG TABLET PO (20:13)
[2024-03-25] MEDS: Prazosin HCL 1 MG CAPSULE 2 MG PO (20:14)
[2024-03-25] MEDS: guaiFENesin 200 MG/10 ML 10 ML LIQUID PO (20:22)
[2024-03-25] MEDS: LORazepam 1 MG TABLET PO (20:23)
[2024-03-26] VITALS (9 sets, daily range): BP systolic 106–156; BP diastolic 54–69; PULSE 75–88; RESP 14–20; TEMP 36–36.8; O2SAT 88–98
[2024-03-26] MEDS: guaiFENesin 200 MG/10 ML 10 ML LIQUID PO ×2 (02:52→11:26)
[2024-03-26] MEDS: Albuterol/Iprat 2.5/0.5MG 3 ML AMPUL.NEB INHALE ×5 (02:59→20:15)
[2024-03-26] MEDS: Fluticasone/Umeclidinium/Vilanterol 200/62.5/25 BLST.W.DEV 1 PUFF INHALE (07:54)
[2024-03-26] MEDS: 0.9 % Sodium Chloride Flush 3 ML SYRINGE IVFLUSH ×3 (08:05→20:55)
[2024-03-26] MEDS: Lidocaine 4 % Patch ADH..PATCH 1 PATCH TRANSDERMA (08:06)
[2024-03-26] MEDS: OXcarbazepine 300 MG TABLET 600 MG PO ×2 (08:07→21:00)
[2024-03-26] MEDS: Furosemide 20 MG TABLET PO (08:07)
[2024-03-26] MEDS: Gabapentin 400 MG CAPSULE 1200 MG PO ×3 (08:08→21:02)
[2024-03-26] MEDS: Baclofen 10 MG TABLET 15 MG PO ×3 (08:08→21:01)
[2024-03-26] MEDS: Aspirin Enteric Coated 81 MG TABLET.DR PO (08:10)
[2024-03-26] MEDS: DULoxetine HCl 60 MG CAPSULE.DR PO ×2 (08:10→21:00)
[2024-03-26] MEDS: Cyanocobalamin (Vitamin B-12) 500 MCG TABLET PO (08:10)
[2024-03-26] MEDS: Folic Acid 1 MG TABLET PO (08:10)
[2024-03-26] MEDS: VerapamiL HCL 120 MG TABLET PO ×2 (08:10→21:00)
--- NOTE | 2024-03-26 09:57 | MHC.CM.PN ---
Addendum entered by Tara Keenan 03/26/24 13:10: [facility] UNABLE TO OFFER PT AWARE AND NOW AGREEABLE TO STR REFERRALS BUT WANTS A SNF WITH A RT ON FILE REFERRALS OUT Original Note: PT REPORTS SHE LIVES AT HOME WITH HER AND IS INDEPENDENT WITH SELF CARE AT BASELINE SHE HAS A WALKER, CANE AND HOME OXYGEN FROM [facility] PCP: WARNER CONDON HCP ON FILE PT ADAMANT SHE WANTS TO GO TO [facility] REFERRAL SENT DCP TBD: HOME VS ACUTE REHAB TRANSPORT TBD BY DISPO
--- NOTE | 2024-03-26 11:13 | HO.PM.IMPN ---
Subjective Subjective Date of Service: 03/26/24 Interval History: dyspnea/wheeze improving desaturation to 85% while sleeping. pt states had negative sleep study recently dry cough Review of Systems Review of Systems: Yes all other systems are reviewed and are negative Physical Exam Vital Signs: Vital Signs: Last Vital Signs Temp 97.8 F 03/26/24 08:00 Pulse 78 03/26/24 08:00 Resp 18 03/26/24 08:00 BP 143/63 H 03/26/24 08:00 Pulse Ox 96 03/26/24 08:00 O2 Del Method Nasal Cannula 03/26/24 08:00 O2 Flow Rate 4 03/26/24 08:00 Oxygen Flow Rate 2 03/24/24 11:06 BMI result Body Mass Index 35.5 Gen: in no acute distress HEENT: sclera anicteric, moist mucus membranes Neck: supple Lungs: faint bilateral expiratory wheezing Heart: regular rate and rhythm, no murmurs Abd: soft, non-tender, non-distended Ext: no edema Skin: warm/well-perfused Neuro: alert and oriented x3, no focal findings Psych: appropriate affect Objective Data Active Medications Acetaminophen (Acetaminophen 325 Mg Tablet) 650 mg PO Q6H PRN PRN Reason: Pain, Mild (Pain Scale 1-3), fever or headache Hydrocodone Bitart/Acetaminophen (Hydrocodone Bit/Acetam 5/325 Tablet) 1 tab PO BID PRN PRN Reason: Pain, Moderate(Pain Scale 4-6) Albuterol/Ipratropium (Albuterol/Iprat 2.5/0.5mg 3 Ml Ampul.Neb) 3 ml INHALE RQ4H WHILE AWAKE [facility] Last Admin: 03/26/24 07:54 Dose: 3 ml Documented By: MARYLU Albuterol/Ipratropium (Albuterol/Iprat 2.5/0.5mg 3 Ml Ampul.Neb) 3 ml INHALE RQ4H WHILE AWAKE PRN PRN Reason: Shortness of Breath/Wheezing Last Admin: 03/26/24 02:59 Dose: 3 ml Documented By: CASSIDY Amlodipine Besylate (Amlodipine Besylate 5 Mg Tablet) 5 mg PO DAILY [facility]; Protocol Last Admin: 03/26/24 08:12 Dose: Not Given Documented By: MLAIK Non-Admin Reason: Patient Refused Aspirin (Aspirin Enteric Coated 81 Mg Tablet.) 81 mg PO DAILY [facility] Last Admin: 03/26/24 08:10 Dose: 81 mg Documented By: MALIK Atorvastatin Calcium (Atorvastatin Calcium 80 Mg Tablet) 80 mg PO BEDTIME [facility] Last Admin: 03/25/24 20:13 Dose: 80 mg Documented By: ANATOLY Baclofen (Baclofen 10 Mg Tablet) 15 mg PO TID [facility] Last Admin: 03/26/24 08:08 Dose: 15 mg Documented By: MALIK Calcium Carbonate (Calcium Carbonate 750 Mg Tab.Chew) 750 mg PO Q4H PRN PRN Reason: Heartburn Last Admin: 03/24/24 22:46 Dose: 750 mg Documented By: BIANKA Cyanocobalamin (Cyanocobalamin (Vitamin B-12) 500 Mcg Tablet) 500 mcg PO DAILY [facility] Last Admin: 03/26/24 08:10 Dose: 500 mcg Documented By: MALIK Duloxetine HCl (Duloxetine Hcl 60 Mg Capsule.) 60 mg PO BID [facility] Last Admin: 03/26/24 08:10 Dose: 60 mg Documented By: MALIK Enoxaparin Sodium (Enoxaparin Sodium 40 Mg/0.4 Ml Syringe) 40 mg SUBCUT Q24H [facility] Last Admin: 03/25/24 15:50 Dose: Not Given Documented By: EMRE Non-Admin Reason: Patient Refused Fluticasone/Umeclidinium/Vilanterol (Fluticasone/Umeclidinium/Vilanterol 200/62.5/25 Blst.W.Dev) 1 puff INHALE DAILY [facility] Last Admin: 03/26/24 07:54 Dose: 1 puff Documented By: MARYLU Folic Acid (Folic Acid 1 Mg Tablet) 1 mg PO DAILY [facility] Last Admin: 03/26/24 08:10 Dose: 1 mg Documented By: MALIK Furosemide (Furosemide 20 Mg Tablet) 20 mg PO DAILY [facility]; Protocol Last Admin: 03/26/24 08:07 Dose: 20 mg Documented By: MALIK Gabapentin (Gabapentin 400 Mg Capsule) 1,200 mg PO TID [facility] Last Admin: 03/26/24 08:08 Dose: 1,200 mg Documented By: MALIK Guaifenesin (Guaifenesin 200 Mg/10 Ml 10 Ml Liquid) 10 ml PO Q6H PRN PRN Reason: Congestion Last Admin: 03/26/24 02:52 Dose: 10 ml Documented By: ANATOLY Hydromorphone HCl (Hydromorphone Hcl 0.5 Mg/0.5 Ml Syringe) 0.25 mg IVPUSH Q4H PRN; Protocol PRN Reason: severe pain Last Admin: 03/25/24 19:25 Dose: 0.25 mg Documented By: EMRE Lidocaine (Lidocaine 4 % Patch Adh..Patch) 1 patch TRANSDERMA DAILY [facility]; Protocol Last Admin: 03/26/24 08:06 Dose: 1 patch Documented By: MALIK Lorazepam (Lorazepam 1 Mg Tablet) 1 mg PO DAILY PRN PRN Reason: Anxiety Last Admin: 03/25/24 20:23 Dose: 1 mg Documented By: ANATOLY Magnesium Hydroxide (Milk Of Magnesia 30 Ml Oral.Susp) 30 ml PO DAILY PRN PRN Reason: Constipation Melatonin (Melatonin 3 Mg Tablet) 6 mg PO BEDTIME PRN PRN Reason: Insomnia Methylprednisolone Sodium Succinate (Methylprednisolone Sod Succ 40 Mg/Ml Vial) 40 mg IVPUSH Q12H [facility] Last Admin: 03/25/24 23:09 Dose: 40 mg Documented By: ANATOLY Ondansetron HCl (Ondansetron Hcl 4 Mg/2 Ml Vial) 4 mg IVPUSH Q8H PRN PRN Reason: Nausea and Vomiting Oxcarbazepine (Oxcarbazepine 300 Mg Tablet) 600 mg PO BID [facility] Last Admin: 03/26/24 08:07 Dose: 600 mg Documented By: MALIK Prazosin HCl (Prazosin Hcl 1 Mg Capsule) 2 mg PO BEDTIME [facility]; Protocol Last Admin: 03/25/24 20:14 Dose: 2 mg Documented By: ANATOLY Sodium Chloride (0.9 % Sodium Chloride Flush 3 Ml Syringe) 3 ml IVFLUSH QSHIFT [facility] Last Admin: 03/26/24 08:05 Dose: 3 ml Documented By: MALIK Verapamil HCl (Verapamil Hcl 120 Mg Tablet) 120 mg PO BID [facility]; Protocol Last Admin: 03/26/24 08:10 Dose: 120 mg Documented By: MALIK Labs 03/24/24 11:44 03/25/24 06:25 Assessment and Plan (1) Acute exacerbation of chronic obstructive airways disease: Status: Acute Plan d3 for 59yo F with chronic hypoxia on 3-4L O2 due to COPD with hx of inbubation , HTN, HLD, hx CVA, trigeminal/occipital neuralgia, mood disorder presenting with worsening dyspnea x2-3d, admitted for COPD exacerbation acute COPD exacerbation - continue IV methylprednisolone -> PO prednisone, standing/prn nebs - no evidence of bacterial infection, RSV/Covid-flu negative troponin indeterminate - no change; no anginal symptoms or ischemic EKG changes; pt had Cardiolite stress test 02/16/24 with no evidence of ischemia; likely had demand from COPD exac chronic hypoxic resp failure - continue home O2, goal SaO2 88-92% HLD hx CVA - ASA, atorvastatin HTN - amlodipine trigeminal/occipital neuralgia - baclofen, gabapentin, oxcarbazepine, duloxetine tobacco abuse - NRT but pt only tolerates mini lozenges mood disorder - continue duloxetine + prazosin chronic leg edema - furosemide VTE ppx - enoxaparin dispo - PT recommends STR In my clinical judgment, the patient requires continued inpatient hospitalization for the following reasons: STR placement Total time managing care of this patient today: 35 minutes. Quality Stroke Does the patient have a stroke diagnosis?: No VTE Prior VTE?: No VTE Risk Level:: Medical - moderate - high VTE Device Contraindication: Treatment Not Indicated VTE Drug Contraindication: N/A - Med Ordered
[2024-03-26] MEDS: predniSONE 20 MG TABLET 40 MG PO (11:25)
[2024-03-26] MEDS: HYDROmorphone HCl 0.5 MG/0.5 ML SYRINGE 0.25 MG IVPUSH (20:56)
[2024-03-26] MEDS: Prazosin HCL 1 MG CAPSULE 2 MG PO (20:59)
[2024-03-26] MEDS: Atorvastatin Calcium 80 MG TABLET PO (20:59)
[2024-03-26] MEDS: LORazepam 1 MG TABLET PO (21:00)
[2024-03-27] VITALS (12 sets, daily range): BP systolic 130–172; BP diastolic 66–82; PULSE 78–93; RESP 18–24; TEMP 36.2–37; O2SAT 89–98
[2024-03-27] MEDS: HYDROmorphone HCl 0.5 MG/0.5 ML SYRINGE 0.25 MG IVPUSH ×4 (04:16→19:55)
[2024-03-27] MEDS: Albuterol/Iprat 2.5/0.5MG 3 ML AMPUL.NEB INHALE ×5 (04:16→19:44)
[2024-03-27] MEDS: Gabapentin 400 MG CAPSULE 1200 MG PO ×3 (04:27→21:28)
[2024-03-27] MEDS: DULoxetine HCl 60 MG CAPSULE.DR PO ×2 (04:28→21:28)
[2024-03-27] MEDS: Baclofen 10 MG TABLET 15 MG PO ×3 (04:29→21:30)
[2024-03-27] MEDS: OXcarbazepine 300 MG TABLET 600 MG PO ×2 (04:30→21:28)
[2024-03-27] MEDS: Fluticasone/Umeclidinium/Vilanterol 200/62.5/25 BLST.W.DEV 1 PUFF INHALE (07:32)
[2024-03-27] MEDS: 0.9 % Sodium Chloride Flush 3 ML SYRINGE IVFLUSH ×3 (07:55→21:32)
[2024-03-27] MEDS: Lidocaine 4 % Patch ADH..PATCH 1 PATCH TRANSDERMA (07:56)
[2024-03-27] MEDS: guaiFENesin 200 MG/10 ML 10 ML LIQUID PO (07:57)
[2024-03-27] MEDS: VerapamiL HCL 120 MG TABLET PO ×2 (07:57→21:29)
[2024-03-27] MEDS: Folic Acid 1 MG TABLET PO (07:58)
[2024-03-27] MEDS: Furosemide 20 MG TABLET PO (07:58)
[2024-03-27] MEDS: Cyanocobalamin (Vitamin B-12) 500 MCG TABLET PO (07:59)
[2024-03-27] MEDS: Aspirin Enteric Coated 81 MG TABLET.DR PO (07:59)
[2024-03-27] MEDS: predniSONE 20 MG TABLET 40 MG PO (07:59)
--- NOTE | 2024-03-27 09:24 | HO.PM.IMPN ---
Subjective Subjective Date of Service: 03/27/24 Interval History: seen and examined no complaints slept well Review of Systems Negative except HPI/interval history. Physical Exam Vital Signs: Vital Signs: Last Vital Signs Temp 97.2 F 03/27/24 07:35 Pulse 79 03/27/24 07:35 Resp 18 03/27/24 08:18 BP 139/66 03/27/24 07:35 Pulse Ox 92 03/27/24 07:35 O2 Del Method Nasal Cannula 03/27/24 07:35 O2 Flow Rate 2 03/27/24 07:35 Oxygen Flow Rate 2 03/24/24 11:06 BMI result Body Mass Index 35.5 Const: Other: General - no acute distress, appears comfortable Cardiovascular - regular rate and rhythm, S1-S2 Lungs - trace exp wheezing otherwise looks comfortable Abdomen - soft, nontender, no rebound or guarding Extremities - no edema bilaterally Neuro - awake and alert, no focal deficits Objective Data Active Medications Acetaminophen (Acetaminophen 325 Mg Tablet) 650 mg PO Q6H PRN PRN Reason: Pain, Mild (Pain Scale 1-3), fever or headache Hydrocodone Bitart/Acetaminophen (Hydrocodone Bit/Acetam 5/325 Tablet) 1 tab PO BID PRN PRN Reason: Pain, Moderate(Pain Scale 4-6) Albuterol/Ipratropium (Albuterol/Iprat 2.5/0.5mg 3 Ml Ampul.Neb) 3 ml INHALE RQ4H WHILE AWAKE [facility] Last Admin: 03/27/24 07:32 Dose: 3 ml Documented By: MARYLU Albuterol/Ipratropium (Albuterol/Iprat 2.5/0.5mg 3 Ml Ampul.Neb) 3 ml INHALE RQ4H WHILE AWAKE PRN PRN Reason: Shortness of Breath/Wheezing Last Admin: 03/26/24 02:59 Dose: 3 ml Documented By: CASSIDY Amlodipine Besylate (Amlodipine Besylate 5 Mg Tablet) 5 mg PO DAILY [facility]; Protocol Last Admin: 03/27/24 07:57 Dose: Not Given Documented By: HIEU Non-Admin Reason: Patient Refused Aspirin (Aspirin Enteric Coated 81 Mg Tablet.) 81 mg PO DAILY [facility] Last Admin: 03/27/24 07:59 Dose: 81 mg Documented By: HIEU Atorvastatin Calcium (Atorvastatin Calcium 80 Mg Tablet) 80 mg PO BEDTIME [facility] Last Admin: 03/26/24 20:59 Dose: 80 mg Documented By: JUAREZ Baclofen (Baclofen 10 Mg Tablet) 15 mg PO TID [facility] Last Admin: 03/27/24 04:29 Dose: 15 mg Documented By: TWILA Comments: ok to give early per Calcium Carbonate (Calcium Carbonate 750 Mg Tab.Chew) 750 mg PO Q4H PRN PRN Reason: Heartburn Last Admin: 03/24/24 22:46 Dose: 750 mg Documented By: BIANKA Cyanocobalamin (Cyanocobalamin (Vitamin B-12) 500 Mcg Tablet) 500 mcg PO DAILY [facility] Last Admin: 03/27/24 07:59 Dose: 500 mcg Documented By: HIEU Duloxetine HCl (Duloxetine Hcl 60 Mg Capsule.Dr) 60 mg PO BID [facility] Last Admin: 03/27/24 04:28 Dose: 60 mg Documented By: TWILA Enoxaparin Sodium (Enoxaparin Sodium 40 Mg/0.4 Ml Syringe) 40 mg SUBCUT Q24H [facility] Last Admin: 03/26/24 15:29 Dose: Not Given Documented By: MALIK Non-Admin Reason: Patient Refused Fluticasone/Umeclidinium/Vilanterol (Fluticasone/Umeclidinium/Vilanterol 200/62.5/25 Blst.W.Dev) 1 puff INHALE DAILY [facility] Last Admin: 03/27/24 07:32 Dose: 1 puff Documented By: MARYLU Folic Acid (Folic Acid 1 Mg Tablet) 1 mg PO DAILY [facility] Last Admin: 03/27/24 07:58 Dose: 1 mg Documented By: HIEU Furosemide (Furosemide 20 Mg Tablet) 20 mg PO DAILY [facility]; Protocol Last Admin: 03/27/24 07:58 Dose: 20 mg Documented By: HIEU Gabapentin (Gabapentin 400 Mg Capsule) 1,200 mg PO TID [facility] Last Admin: 03/27/24 04:27 Dose: 1,200 mg Documented By: TWILA Comments: ok to give early per hospitalist via [employer] Guaifenesin (Guaifenesin 200 Mg/10 Ml 10 Ml Liquid) 10 ml PO Q6H PRN PRN Reason: Congestion Last Admin: 03/27/24 07:57 Dose: 10 ml Documented By: HIEU Hydromorphone HCl (Hydromorphone Hcl 0.5 Mg/0.5 Ml Syringe) 0.25 mg IVPUSH Q4H PRN; Protocol PRN Reason: severe pain Last Admin: 03/27/24 08:18 Dose: 0.25 mg Documented By: HIEU Lidocaine (Lidocaine 4 % Patch Adh..Patch) 1 patch TRANSDERMA DAILY [facility]; Protocol Last Admin: 03/27/24 07:56 Dose: 1 patch Documented By: HIEU Lorazepam (Lorazepam 1 Mg Tablet) 1 mg PO DAILY PRN PRN Reason: Anxiety Last Admin: 03/26/24 21:00 Dose: 1 mg Documented By: JUAREZ Magnesium Hydroxide (Milk Of Magnesia 30 Ml Oral.Susp) 30 ml PO DAILY PRN PRN Reason: Constipation Melatonin (Melatonin 3 Mg Tablet) 6 mg PO BEDTIME PRN PRN Reason: Insomnia Ondansetron HCl (Ondansetron Hcl 4 Mg/2 Ml Vial) 4 mg IVPUSH Q8H PRN PRN Reason: Nausea and Vomiting Oxcarbazepine (Oxcarbazepine 300 Mg Tablet) 600 mg PO BID [facility] Last Admin: 03/27/24 04:30 Dose: 600 mg Documented By: TWILA Prazosin HCl (Prazosin Hcl 1 Mg Capsule) 2 mg PO BEDTIME [facility]; Protocol Last Admin: 03/26/24 20:59 Dose: 2 mg Documented By: JUAREZ Prednisone (Prednisone 20 Mg Tablet) 40 mg PO DAILY [facility] Last Admin: 03/27/24 07:59 Dose: 40 mg Documented By: HIEU Sodium Chloride (0.9 % Sodium Chloride Flush 3 Ml Syringe) 3 ml IVFLUSH QSHIFT [facility] Last Admin: 03/27/24 07:55 Dose: 3 ml Documented By: HIEU Verapamil HCl (Verapamil Hcl 120 Mg Tablet) 120 mg PO BID [facility]; Protocol Last Admin: 03/27/24 07:57 Dose: 120 mg Documented By: HIEU Labs 03/24/24 11:44 03/25/24 06:25 Assessment and Plan (1) Acute exacerbation of chronic obstructive airways disease: Status: Acute Plan d3 for 59yo F with chronic hypoxia on 3-4L O2 due to COPD with hx of inbubation , HTN, HLD, hx CVA, trigeminal/occipital neuralgia, mood disorder presenting with worsening dyspnea x2-3d, admitted for COPD exacerbation acute COPD exacerbation - continue IV methylprednisolone -> PO prednisone, standing/prn nebs - no evidence of bacterial infection, RSV/Covid-flu negative continues to improve troponin indeterminate - no change; no anginal symptoms or ischemic EKG changes; pt had Cardiolite stress test 02/16/24 with no evidence of ischemia; likely had demand from COPD exac chronic hypoxic resp failure - continue home O2, goal SaO2 88-92% HLD hx CVA - ASA, atorvastatin HTN - amlodipine trigeminal/occipital neuralgia - baclofen, gabapentin, oxcarbazepine, duloxetine tobacco abuse - NRT but pt only tolerates mini lozenges mood disorder - continue duloxetine + prazosin chronic leg edema - furosemide VTE ppx - enoxaparin dispo - PT recommends STR str when bed avabile Total time managing care of this patient today: 35 minutes. Quality Stroke Does the patient have a stroke diagnosis?: No VTE Prior VTE?: No VTE Risk Level:: Medical - moderate - high VTE Device Contraindication: Treatment Not Indicated VTE Drug Contraindication: N/A - Med Ordered
--- NOTE | 2024-03-27 14:30 | MHC.CM.PN ---
Addendum entered by eDbi Titus 03/27/24 15:53: [facility] [place] in fact does not have a book canvasser RT (they are only there on the weekends per their liaison), based on this clarification and after discussing it with the pt, she would prefer to go to [facility] as they have a book canvasser RT. Addendum entered by Debi Titus 03/27/24 15:07: Bed offer received from [facility] and [facility], they both have RT on staff. This CM met with pt to discuss facility options, and she accepts the bed at [facility] as her first choice. Original Note: EMR reviewed, pt is not medically cleared for discharge due to management of COPD exacerbation. DCP: per PT's rec, pt will need STR, no current bed offers, referral expanded on [facility].
[2024-03-27] MEDS: Prazosin HCL 1 MG CAPSULE 2 MG PO (21:29)
[2024-03-27] MEDS: Atorvastatin Calcium 80 MG TABLET PO (21:30)
[2024-03-27] MEDS: LORazepam 1 MG TABLET PO (21:43)
[2024-03-28] VITALS (10 sets, daily range): BP systolic 132–166; BP diastolic 53–70; PULSE 68–88; RESP 15–20; TEMP 36.1–36.7; O2SAT 90–98
[2024-03-28] MEDS: Gabapentin 400 MG CAPSULE 1200 MG PO ×3 (05:15→20:58)
[2024-03-28] MEDS: OXcarbazepine 300 MG TABLET 600 MG PO ×2 (05:16→20:59)
[2024-03-28] MEDS: Baclofen 10 MG TABLET 15 MG PO ×3 (05:18→20:58)
[2024-03-28] MEDS: DULoxetine HCl 60 MG CAPSULE.DR PO ×2 (05:19→20:59)
[2024-03-28] MEDS: Albuterol/Iprat 2.5/0.5MG 3 ML AMPUL.NEB INHALE ×4 (07:59→19:50)
[2024-03-28] MEDS: Fluticasone/Umeclidinium/Vilanterol 200/62.5/25 BLST.W.DEV 1 PUFF INHALE (08:00)
[2024-03-28] MEDS: Furosemide 20 MG TABLET PO (09:04)
[2024-03-28] MEDS: Folic Acid 1 MG TABLET PO (09:04)
[2024-03-28] MEDS: 0.9 % Sodium Chloride Flush 3 ML SYRINGE IVFLUSH ×3 (09:04→20:54)
[2024-03-28] MEDS: Aspirin Enteric Coated 81 MG TABLET.DR PO (09:04)
[2024-03-28] MEDS: Cyanocobalamin (Vitamin B-12) 500 MCG TABLET PO ×2 (09:05→09:09)
[2024-03-28] MEDS: Lidocaine 4 % Patch ADH..PATCH 1 PATCH TRANSDERMA (09:08)
[2024-03-28] MEDS: predniSONE 20 MG TABLET 40 MG PO (09:09)
[2024-03-28] MEDS: VerapamiL HCL 120 MG TABLET PO ×2 (09:09→20:57)
[2024-03-28] MEDS: HYDROmorphone HCl 0.5 MG/0.5 ML SYRINGE 0.25 MG IVPUSH ×3 (09:20→20:52)
[2024-03-28] MEDS: guaiFENesin 200 MG/10 ML 10 ML LIQUID PO (09:27)
[2024-03-28] MEDS: LORazepam 1 MG TABLET PO ×2 (09:53→23:18)
[2024-03-28] MEDS: HYDROcodone Bit/Acetam 5/325 TABLET 1 TAB PO (11:01)
--- NOTE | 2024-03-28 14:36 | PC.NURSE ---
Patient refuses Lovenox,risks explained,encouraged excercises,Dr. Harrison notified
--- NOTE | 2024-03-28 15:29 | HO.PM.IMPN ---
Subjective Subjective Date of Service: 03/28/24 Interval History: sob seems improving has cough,also pain with coughing Review of Systems Review of Systems: Yes all other systems are reviewed and are negative Physical Exam Vital Signs: Vital Signs: Last Vital Signs Temp 98.1 F 03/28/24 08:00 Pulse 85 03/28/24 14:02 Resp 15 03/28/24 14:02 BP 138/61 03/28/24 09:39 Pulse Ox 90 L 03/28/24 09:39 O2 Del Method Nasal Cannula 03/28/24 08:00 O2 Flow Rate 2 03/28/24 08:00 Oxygen Flow Rate 2 03/24/24 11:06 BMI result Body Mass Index 35.5 General - no acute distress, appears comfortable Cardiovascular - regular rate and rhythm, S1-S2 Lungs - trace exp wheezing otherwise looks comfortable Abdomen - soft, nontender, no rebound or guarding Extremities - no edema bilaterally Neuro - awake and alert, no focal deficits Objective Data Active Medications Acetaminophen (Acetaminophen 325 Mg Tablet) 650 mg PO Q6H PRN PRN Reason: Pain, Mild (Pain Scale 1-3), fever or headache Hydrocodone Bitart/Acetaminophen (Hydrocodone Bit/Acetam 5/325 Tablet) 1 tab PO TID PRN PRN Reason: Pain, Moderate(Pain Scale 4-6) Last Admin: 03/28/24 11:01 Dose: 1 tab Documented By: SHIRLEY Albuterol/Ipratropium (Albuterol/Iprat 2.5/0.5mg 3 Ml Ampul.Neb) 3 ml INHALE RQ4H WHILE AWAKE [facility] Last Admin: 03/28/24 14:01 Dose: 3 ml Documented By: PEE Albuterol/Ipratropium (Albuterol/Iprat 2.5/0.5mg 3 Ml Ampul.Neb) 3 ml INHALE RQ4H WHILE AWAKE PRN PRN Reason: Shortness of Breath/Wheezing Last Admin: 03/26/24 02:59 Dose: 3 ml Documented By: CASSIDY Aspirin (Aspirin Enteric Coated 81 Mg Tablet.) 81 mg PO DAILY [facility] Last Admin: 03/28/24 09:04 Dose: 81 mg Documented By: SHIRLEY Atorvastatin Calcium (Atorvastatin Calcium 80 Mg Tablet) 80 mg PO BEDTIME [facility] Last Admin: 03/27/24 21:30 Dose: 80 mg Documented By: DESTINEE Baclofen (Baclofen 10 Mg Tablet) 15 mg PO TID [facility] Last Admin: 03/28/24 14:31 Dose: 15 mg Documented By: SHIRLEY Calcium Carbonate (Calcium Carbonate 750 Mg Tab.Chew) 750 mg PO Q4H PRN PRN Reason: Heartburn Last Admin: 03/24/24 22:46 Dose: 750 mg Documented By: BIANKA Cyanocobalamin (Cyanocobalamin (Vitamin B-12) 500 Mcg Tablet) 500 mcg PO DAILY [facility] Last Admin: 03/28/24 09:09 Dose: 500 mcg Documented By: SHIRLEY Duloxetine HCl (Duloxetine Hcl 60 Mg Capsule.Dr) 60 mg PO BID [facility] Last Admin: 03/28/24 05:19 Dose: 60 mg Documented By: DESTINEE Enoxaparin Sodium (Enoxaparin Sodium 40 Mg/0.4 Ml Syringe) 40 mg SUBCUT Q24H [facility] Last Admin: 03/28/24 14:35 Dose: Not Given Documented By: SHIRLEY Non-Admin Reason: Patient Refused Fluticasone/Umeclidinium/Vilanterol (Fluticasone/Umeclidinium/Vilanterol 200/62.5/25 Blst.W.Dev) 1 puff INHALE DAILY [facility] Last Admin: 03/28/24 08:00 Dose: 1 puff Documented By: PEE Folic Acid (Folic Acid 1 Mg Tablet) 1 mg PO DAILY [facility] Last Admin: 03/28/24 09:04 Dose: 1 mg Documented By: SHIRLEY Furosemide (Furosemide 20 Mg Tablet) 20 mg PO DAILY [facility]; Protocol Last Admin: 03/28/24 09:04 Dose: 20 mg Documented By: SHIRLEY Gabapentin (Gabapentin 400 Mg Capsule) 1,200 mg PO TID [facility] Last Admin: 03/28/24 14:32 Dose: 1,200 mg Documented By: SHIRLEY Guaifenesin (Guaifenesin 200 Mg/10 Ml 10 Ml Liquid) 10 ml PO Q6H PRN PRN Reason: Congestion Last Admin: 03/28/24 09:27 Dose: 10 ml Documented By: SHIRLEY Guaifenesin (Guaifenesin 200 Mg/10 Ml 10 Ml Liquid) 10 ml PO Q6H PRN PRN Reason: Cough Hydromorphone HCl (Hydromorphone Hcl 0.5 Mg/0.5 Ml Syringe) 0.25 mg IVPUSH Q4H PRN; Protocol PRN Reason: severe pain Last Admin: 03/28/24 13:45 Dose: 0.25 mg Documented By: PORTER Lidocaine (Lidocaine 4 % Patch Adh..Patch) 1 patch TRANSDERMA DAILY [facility]; Protocol Last Admin: 03/28/24 09:08 Dose: 1 patch Documented By: SHIRLEY Lorazepam (Lorazepam 1 Mg Tablet) 1 mg PO DAILY PRN PRN Reason: Anxiety Last Admin: 03/28/24 09:53 Dose: 1 mg Documented By: SHIRLEY Magnesium Hydroxide (Milk Of Magnesia 30 Ml Oral.Susp) 30 ml PO DAILY PRN PRN Reason: Constipation Melatonin (Melatonin 3 Mg Tablet) 6 mg PO BEDTIME PRN PRN Reason: Insomnia Ondansetron HCl (Ondansetron Hcl 4 Mg/2 Ml Vial) 4 mg IVPUSH Q8H PRN PRN Reason: Nausea and Vomiting Oxcarbazepine (Oxcarbazepine 300 Mg Tablet) 600 mg PO BID [facility] Last Admin: 03/28/24 05:16 Dose: 600 mg Documented By: DESTINEE Comments: okay to give early at pt request and ok by hospitalist on duty, pt states this is her routine Prazosin HCl (Prazosin Hcl 1 Mg Capsule) 2 mg PO BEDTIME [facility]; Protocol Last Admin: 03/27/24 21:29 Dose: 2 mg Documented By: DESTINEE Prednisone (Prednisone 20 Mg Tablet) 40 mg PO DAILY [facility] Last Admin: 03/28/24 09:09 Dose: 40 mg Documented By: SHIRLEY Sodium Chloride (0.9 % Sodium Chloride Flush 3 Ml Syringe) 3 ml IVFLUSH QSHIFT [facility] Last Admin: 03/28/24 14:33 Dose: 3 ml Documented By: SHIRLEY Verapamil HCl (Verapamil Hcl 120 Mg Tablet) 120 mg PO BID [facility]; Protocol Last Admin: 03/28/24 09:09 Dose: 120 mg Documented By: SHIRLEY Labs 03/24/24 11:44 03/25/24 06:25 Assessment and Plan (1) Acute exacerbation of chronic obstructive airways disease: Status: Acute Plan 59yo F with chronic hypoxia on 3-4L O2 due to COPD with hx of inbubation , HTN, HLD, hx CVA, trigeminal/occipital neuralgia, mood disorder presenting with worsening dyspnea x2-3d, admitted for COPD exacerbation acute COPD exacerbation - continue IV methylprednisolone -> PO prednisone, standing/prn nebs - no evidence of bacterial infection, RSV/Covid-flu negative continues to improve. troponin indeterminate - no change; no anginal symptoms or ischemic EKG changes; pt had Cardiolite stress test 02/16/24 with no evidence of ischemia; likely had demand from COPD exac chronic hypoxic resp failure - continue home O2, goal SaO2 88-92% HLD hx CVA - ASA, atorvastatin HTN - amlodipine trigeminal/occipital neuralgia - baclofen, gabapentin, oxcarbazepine, duloxetine tobacco abuse - NRT but pt only tolerates mini lozenges mood disorder - continue duloxetine + prazosin chronic leg edema - furosemide VTE ppx - enoxaparin(refused today due to brusing/ecchymosis),added mech devices. dispo - PT recommends STR str when bed avabile Total time managing care of this patient today: 30 minutes. Quality Stroke Does the patient have a stroke diagnosis?: No VTE Prior VTE?: No VTE Risk Level:: Medical - moderate - high VTE Device Contraindication: Treatment Not Indicated VTE Drug Contraindication: N/A - Med Ordered
[2024-03-28] MEDS: Atorvastatin Calcium 80 MG TABLET PO (20:58)
[2024-03-28] MEDS: Prazosin HCL 1 MG CAPSULE 2 MG PO (20:59)
[2024-03-29 04:00] VITALS: BP 146/63; PULSE 85; RESP 18; TEMP 36.4; O2SAT 90
[2024-03-29 06:27] VITALS: O2SAT 95
[2024-03-29 07:44] VITALS: BP 178/76; PULSE 77; RESP 20; TEMP 36.2; O2SAT 95
[2024-03-29] MEDS: Fluticasone/Umeclidinium/Vilanterol 200/62.5/25 BLST.W.DEV 1 PUFF INHALE (07:50)
[2024-03-29] MEDS: Albuterol/Iprat 2.5/0.5MG 3 ML AMPUL.NEB INHALE ×2 (07:50→11:59)
[2024-03-29 07:52] VITALS: PULSE 75; RESP 20; O2SAT 92
[2024-03-29] MEDS: Lidocaine 4 % Patch ADH..PATCH 1 PATCH TRANSDERMA (08:32)
[2024-03-29] MEDS: Furosemide 20 MG TABLET PO (08:33)
[2024-03-29] MEDS: DULoxetine HCl 60 MG CAPSULE.DR PO (08:33)
[2024-03-29] MEDS: Folic Acid 1 MG TABLET PO (08:33)
[2024-03-29] MEDS: Aspirin Enteric Coated 81 MG TABLET.DR PO (08:33)
[2024-03-29] MEDS: 0.9 % Sodium Chloride Flush 3 ML SYRINGE IVFLUSH (08:34)
[2024-03-29] MEDS: Baclofen 10 MG TABLET 15 MG PO (08:35)
[2024-03-29] MEDS: Cyanocobalamin (Vitamin B-12) 500 MCG TABLET PO (08:36)
[2024-03-29] MEDS: VerapamiL HCL 120 MG TABLET PO (08:36)
[2024-03-29] MEDS: OXcarbazepine 300 MG TABLET 600 MG PO (08:37)
[2024-03-29] MEDS: Gabapentin 400 MG CAPSULE 1200 MG PO (08:37)
[2024-03-29] MEDS: predniSONE 20 MG TABLET 40 MG PO (08:37)
[2024-03-29 08:44] VITALS: BP 151/68; PULSE 79
[2024-03-29] MEDS: HYDROmorphone HCl 0.5 MG/0.5 ML SYRINGE 0.25 MG IVPUSH ×2 (08:53→13:04)
[2024-03-29] MEDS: HYDROcodone Bit/Acetam 5/325 TABLET 1 TAB PO (09:00)
--- NOTE | 2024-03-29 09:41 | MHC.CM.PN ---
Per MD patient medically cleared for dc to [facility]. S transport scheduled for 1pm to [facility]. Patient, , RN aware.
--- NOTE | 2024-03-29 11:29 | PM.DS ---
DS: Providers Provider Date of Service: 03/29/24 Date of admission: 03/24/24 16:08 Date of discharge: 03/29/24 Primary care physician: ESTEBAN Christianson Attending physician on discharge: Maye Harrsion Discharging clinician: Maye Harrison DS: Diagnosis Discharge Diagnosis (1) Acute exacerbation of chronic obstructive airways disease: Status: Acute DS: Summary Hospital Course Hospital Course: HPI: 59-year-old female with a PMH significant for?chronic hypoxic respiratory failure due to COPD on 3L at rest and 4L with exertion, active smoker, HTN, HLD, CVA, MVR, trigeminal neuralgia, occipital neuralgia, and mood disorder who presents to the ED with?intermittent SOB and PRECIADO times 2-3 days. Patient was recently admitted to the hospital on 03/10-03/13 and treated for acute on chronic hypoxic respiratory failure in the setting of COPD exacerbation. Reports initially did well when she went home, but became increasingly short of breath 3 days ago. Patient increased home O2 to 4L and attempted many home nebulizer and inhaler treatments to little effect. Was seen today by home health aide who called nursing agency who recommended patient go to the ED for further evaluation. Reports subjective fever, but does not have a home thermometer. Chronic nonproductive cough at baseline. Chest tightness associated with cough and deep breathing. No nausea, vomiting, abdominal pain. Denies chest pain/pressure, palpitations. Patient currently reports smoking around 3/4 of a pack of cigarettes daily. In the ED pt was tachypneic up to 22 and hypertensive up to 167/75. Labs were significant for bicarb of 36, magnesium 3 pt 6 ALT 48, alk-phos 121, and initial troponin 36.2 with repeat flat at 31.7. VBG pH 7.42 with pCO2 61 and bicarb 40. Tested negative for flu, COVID, and RSV. CXR showed no evidence acute pulmonary abnormality. EKG demonstrated normal sinus rhythm ischemic changes. Pt was treated with Solu-Medrol, Mag sulfate, DuoNeb, gabapentin, and baclofen. Pt will be admitted to the hospital for treatment and further evaluation of acute respiratory distress in the setting acute COPD exacerbation. hospital course: patient came to hospital sob and PRECIADO with Acute on chronic respiratory distress in the setting of acute COPD exacerbation-No fever or productive cough, CXR negative, RSV/COVID/Flu negative-started on nebs , steriods -seems sob improved to baseline . sats are 95% on 2 liter oxygen. complete prednisone 40 mg po daily x1 more day. Patient was strongly advised to quit smoking, she understands. 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 moniter bp closely in rehab , if needed consider adding another Bp medication. seen by pt recomended rehab. plan: complete prednisone 40 mg po daily x1 more day.Patient was strongly advised to quit smoking, she understands. htn -biomedical field service engineer stopped her amlodipine.continue verapamil,moniter bp closely in rehab , if needed consider adding another Bp medication. Above management discussed with the patient detail length she understand and in agreement with the plan, time spent 40 min. Time Attestation Total time managing care of this patient today: 40 mintues. Discharge Coordination Time (in mins): 40 min Quality: Safe Use of Opioids Does Pt have an Active Cancer Diagnosis on the Problem List?: No Quality: Stroke Does the patient have a stroke diagnosis?: No Physical Exam Vital Signs: Vital Signs: Last Vital Signs Temp 97.1 F 03/29/24 07:44 Pulse 79 03/29/24 08:44 Resp 20 03/29/24 07:52 BP 151/68 H 03/29/24 08:44 Pulse Ox 95 03/29/24 07:44 O2 Del Method Nasal Cannula 03/29/24 07:44 O2 Flow Rate 2 03/29/24 07:44 Oxygen Flow Rate 2 03/24/24 11:06 BMI result Body Mass Index 35.5 General - no acute distress, appears comfortable Cardiovascular - regular rate and rhythm, S1-S2 Lungs -air entry fair ,no rales or wheezing Abdomen - soft, nontender, no rebound or guarding Extremities - no edema bilaterally Neuro - awake and alert, no focal deficits DS: Data Data Completed and Pending Completed studies during hospitalization [Text1]: Procedures Assistance with Respiratory Ventilation, Less than 24 Consecutive Hours, Continuous Positive Airway Pressure (12/10/23) Discharge Plan Discharge Anticipated Discharge Date/Time: 03/29/24 10:16 Patient Disposition: Xfer SNF Discharge Diagnosis: acute COPD exacerbation Referrals: [facility] [Outside] - 1 Day (short term rehab) Sirisha Huertas FNP-BC [Primary Care Provider] - 1 Week Discharge Medications: New prednisone 20 mg tablet 40 mg PO DAILY Qty: 2 0RF Continued ipratropium-albuterol 0.5 mg-3 mg(2.5 mg base)/3 mL solution for nebulization 3 ml inhalation Q4H PRN (Reason: for dyspnea) Qty: 180 11RF verapamil 120 mg tablet 120 mg PO BID Qty: 60 1RF baclofen 15 mg Tablet 15 mg PO TID furosemide [Lasix] 20 mg tablet 20 mg PO DAILY Qty: 7 0RF lidocaine 4 % Cream 1 appl TOPICAL DAILY PRN (Reason: Pain) vitamin C99-ewguz acid 0.5-1 mg Tablet 1 tab PO DAILY Trelegy Ellipta 200-62.5-25 mcg Blister With Device 1 inh INHALATION DAILY atorvastatin 80 mg tablet 80 mg PO BEDTIME hydrocodone-acetaminophen 5-325 mg tablet 1 tab PO BID PRN (Reason: Pain) ahxnvylrsu-xetokmyzttigv-srni 50-325-40 mg tablet 1 - 2 tab PO DAILY PRN (Reason: Headache) hyoscyamine sulfate 0.125 mg tablet 0.125 - 0.25 mg PO Q4-6H PRN (Reason: Abdominal Discomfort) gabapentin 300 mg capsule 1,200 mg PO TID oxcarbazepine 600 mg tablet 600 mg PO BID lorazepam 1 mg tablet 0.5 mg PO DAILY PRN (Reason: Anxiety) duloxetine 60 mg capsule,delayed release(DR/EC) 60 mg PO BID aspirin 81 mg Tablet,Delayed Release (Dr/Ec) 81 mg PO DAILY Qty: 90 0RF (DME) nebulizer and compressor Device See Rx Instructions .Route Qty: 1 0RF Rx Instructions: As directed albuterol sulfate 90 mcg/actuation HFA aerosol inhaler 2 puff inhalation Q4H PRN (Reason: Shortness Of Breath Or Wheezing) amlodipine 5 mg tablet 5 mg PO DAILY guaifenesin 100 mg/5 mL liquid 200 mg PO Q6H PRN (Reason: Congestion) nicotine (polacrilex) [Nicorette] 4 mg mini lozenge 4 mg buccal Q4-8H PRN (Reason: nicotine cravings) Qty: 81 0RF prazosin 2 mg capsule 2 mg PO BEDTIME (DME) Oxygen Home Use Kit See Rx Instructions .Route Rx Instructions: As directed Discharge Orders: Discharge Order (Routine); Ordered 03/29/24 Ordered By: Maye Harrison Diet: Advance to usual diet Activity on Discharge: As tolerated Stand Alone Forms: Patient Portal Discharge page Print Language: Azeri Care Plan Goals: patient came to hospital sob and PRECIADO with Acute on chronic respiratory distress in the setting of acute COPD exacerbation-No fever or productive cough, CXR negative, RSV/COVID/Flu negative-started on nebs , steriods -seems sob improved to baseline . sats are 95% on 2 liter oxygen. complete prednisone 40 mg po daily x1 more day. Patient was strongly advised to quit smoking, she understands. htn : continue verapamil, as per patient her biomedical field service engineer stopped her amlodipine. Above management discussed with the patient detail length she understand and in agreement with the plan, time spent 40 min. Health Concerns: as above. Plan of Treatment: as above. Assessment: as above.
[2024-03-29 11:59] VITALS: PULSE 80; RESP 17; O2SAT 97
== END 2024-03-29 13:31 | disposition skilled nursing facility (03) | DRG 140 ==
LOC: HO.ED 15:07 → HO.EDOVER 16:43 → HO.S3 03-25 00:37
PROVIDERS: Physician Assistant; Admitting Provider Student in an Organized Health Care Education/Training Program; Emergency Provider Emergency Medicine; PCP Registered Nurse; Visit Provider Internal Medicine
DX: J44.1 Chronic obstructive pulmonary disease with (acute) exacerbation (principal); E83.41 Hypermagnesemia; Z99.81 Dependence on supplemental oxygen; J96.11 Chronic respiratory failure with hypoxia; I10 Essential (primary) hypertension; Z86.73 Personal history of transient ischemic attack (TIA), and cerebral infarction without residual deficits; E78.5 Hyperlipidemia, unspecified; G50.0 Trigeminal neuralgia; F39 Unspecified mood [affective] disorder; Z95.2 Presence of prosthetic heart valve; Z20.822 Contact with and (suspected) exposure to COVID-19; Z79.82 Long term (current) use of aspirin; Z87.891 Personal history of nicotine dependence; Z79.899 Other long term (current) drug therapy
CPT/HCPCS: 0241U; 36415; 71045; 80048; 80053; 82803; 83735; 83880; 84484; 85025; 85610; 93005; 94640; 97110; 97116; 97162; 99285; J1171; J2919; J3475

== ENCOUNTER → 2024-03-24 10:55 | Outpatient (BNV) | payer BC, SELFPAY | PROVIDERS: Admitting Provider Student in an Organized Health Care Education/Training Program; Emergency Provider Emergency Medicine; PCP Registered Nurse; Visit Provider Internal Medicine Cardiovascular Disease | DX: R06.02 Shortness of breath (principal) | CPT/HCPCS: 93010 ==

== ENCOUNTER → 2024-03-24 16:08 | Outpatient (BNV) | payer BC, SELFPAY | PROVIDERS: Admitting Provider Student in an Organized Health Care Education/Training Program; Emergency Provider Emergency Medicine; PCP Registered Nurse; Visit Provider Student in an Organized Health Care Education/Training Program | DX: J44.1 Chronic obstructive pulmonary disease with (acute) exacerbation (principal); J96.21 Acute and chronic respiratory failure with hypoxia | CPT/HCPCS: 99223; 99231; 99232; 99239; 99499 ==

== ENCOUNTER 2024-04-06 10:35 | Outpatient (AMB) | payer BC, SELFPAY ==
--- NOTE | 2024-04-06 10:43 | A.OFFVIS_ITS ---
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 Apparently back in February she developed worsening respiratory symptoms and was admitted to the hospital with COPD exacerbation. While she was there the patient did have a CT scan of the chest which was personally reviewed by me. It appears patient does have underlying pulmonary nodules subcentimeter in size, as well as, emphysema evidence of bronchitis. The patient does use oxygen activity. She also benefits from using oxygen while sleeping. The patient also needs to quit smoking. She understands the has is having oxygen and smoking. 07/19/2023 the patient is here for a pulmonary follow-up visit. Overall she is doing about the same. She has not using the oxygen regularly. She did have an overnight oximetry done several months ago on 2 L nasal cannula demonstrating that she actually does require the 2 L and actually would benefit from a little more oxygen. However, she has not using it at also I did advise her just to go back on using the oxygen. She has significant trigeminal neuralgia and neuropathy in general making it difficult for her to have anything over head and ear area. Therefore, she is going to have to figure out a way that would work for her. She does not tolerate a oxygen mask either because of the same problem. She is going to look to see if she can find a solution otherwise will can call [facility] [place] to see if they can help her. The patient unfortunately she continues to smoke cigarettes. She does want to quit she wants to try the Nicotrol nasal spray. Will send to the pharmacy for her to try. The patient also did have pulmonary function studies that [facility] last year. She does have significant COPD. We do not have those PFTs available at this time but we will request them. She will be a great candidate for pulmonary rehabilitation at this time. The patient also had a CT scan of the chest back in February 2023 demonstrating multiple nodules largest 1 measuring 5 mm in size. She is high risk for malignancy due to her smoking history therefore she will have a repeat CT scan the fall 2023. 01/20/2024 the patient is here for a pulmonary follow-up visit. The patient has been hospitalized now about 3 times since we last spoke. I did evaluate her in the hospital as well. Has had significant wheezing. Has been requiring prednisone. Indeed she may have an allergic component to her bronchospasms. She does have significant eosinophilia. therefore, will go ahead and request additional testing including allergy testing so we can address her persistent bronchospasms. Currently she is on 40 mg of prednisone. She only taper. We did go over her inhalers. She needs to also continue to use her nebulizer therapy 2 to 4 times a day. Trelegy inhaler will be effective for her. She will go ahead and start that inhaler and we did instruct her how to use it. The patient is also using her oxygen. We did do a brief walking oximetry to make sure that she was getting adequate oxygenation. She need to continue using 2 L with activity. She does not using her nose because it does aggravate her nose so therefore she does only get some administration. The patient also has underlying daytime drowsiness. It was documented the patient is snoring. She also has headaches in the morning. The patient does have an elevated [place] score of 10/24. He is using oxygen with sleep. Will go ahead and request an in-lab sleep study at this time. 03/15/2024 the patient is here for a pulmonary follow-up visit. The patient is here for hospital follow-up visit. She has had multiple hospitalizations since the last visit. She has been having worsening respiratory symptoms. She is on currently on prednisone. She is tapering down. We did talk about her blood work demonstrating a low IgG level. I explained to her hypogammaglobulinemia can result in smoldering infections and could potentially worsen her respiratory issues and it could be driving her exacerbations. We talked about augmentation therapy. Will go ahead and repeat her levels once she is off the prednisone to see if she still low. If she is still low will talk about augmentation therapy further. In addition to that she did have a sleep study. It was an in-lab study. She did not have any evidence of sleep apnea. The patient actually just needs to be on oxygen. She can use 1 L at nighttime. We can always check an overnight oximetry on 1 L to make sure sufficient. In addition to that she is using the portable oxygen concentrator with did ask conserving device tank. The patient was walk today she needs 2 L pulse at rest and 3 L pulse with activity. When she is at home with the continue his oxygen she can stay on 2 liters/minute. Although when she is doing any kind strained his activity such as going up a flight of stairs or going showering she should be on 3 liters/minute. The patient feels comfortable with that. She continues use her respiratory therapy as prescribed. The patient did have a CT scan of the chest back in 03/03/2023 demonstrating multiple pulmonary nodules and chronic bronchitis. Largest nodule measuring 5 mm in size. She will need another CT scan now. The patient follow-up in 3-4 weeks and will review the CT scan at that time. 04/06/2024 the patient is here for a hospital follow-up visit. She was on hospital again. The patient required another course of steroids. She then subsequently to rehabilitation. She has been using her oxygen. We again reviewed her blood work demonstrating the significant immunodeficiency. Indeed her recurrent infections may be related to immunocompromised state in the treatment of augmentation therapy may be very reasonable for her to improve her quality of life decrease hospitalizations and improve her respiratory status. But for now she is on prednisone. Therefore will wait for to finish a prednisone recheck her levels to see if the levels continued to be low. If they are low then will go ahead and start her on IVIG therapy. If the levels are coming up then which is hold steady and see if they continue to rise when she is off the prednisone. She continues with respiratory therapy good effect. We did review her chest x-ray demonstrating no acute disease. We did review her allergy levels. There indeed elevated with an elevated IgE although her eosinophils are stable therefore not a candidate for Dupixent. However, will recheck her levels when she is off the prednisone to see if her eosinophils go about 300. [facility] Medical History Hypogammaglobulinemia Smoker JUANITO (obstructive sleep apnea) Allergies Hypertension Elevated troponin COPD (chronic obstructive pulmonary disease) Chronic hypercapnic respiratory failure Trigeminal neuralgia Pulmonary nodules Mixed hyperlipidemia Peripheral neuropathy Tobacco use disorder Mood disorder Surgical History History of esophagogastroduodenoscopy (EGD) History of colonoscopy History of lumbar discectomy History of tubal ligation History of excision of mass History of shoulder surgery Social History Household Members: [facility] Do you presently have visiting nurse or other home services: Yes Alcohol intake: former Comment: pt refuses bed alarm. Patient Tobacco Use Status: Former Tobacco user Tobacco use type: Cigarette Cigarette Packs Per Day: 4 Cigarettes Per Day: 80.0 Years Smoked: 40 e-Cigarette/Vaping Use: Former Use Second Hand Smoke Exposure: No Substance Use Type: Marijuana Advance Directives Date on File: 03/09/23 service: No Review of Systems Const Reports daytime sleepiness, Denies fever(s), Reports headache(s) and Reports snoring Eyes Denies change in vision ENT Reports headache(s) and Reports nasal congestion Card Denies chest pain and Reports dyspnea on exertion Resp Reports chest congestion, Reports cough, Reports dyspnea on exertion, Reports snoring and Reports wheezing GI Reports no additional complaints Musc Reports no additional complaints Skin/Breast Denies rash Neuro Reports headache(s) Luis/Lymph Denies lymphadenopathy Aller/Immun Reports no additional complaints and Reports wheezing Physical Exam Vital Signs: Last Vital Signs Pulse 80 04/06/24 10:44 BP 130/68 04/06/24 10:44 Pulse Ox 95 04/06/24 10:44 Oxygen Delivery Method Room Air 04/06/24 10:44 BMI result Body Mass Index 38.0 Last Vital Signs Temp 97.6 F 12/12/23 08:00 Pulse 110 H 12/12/23 09:52 Resp 22 H 12/12/23 09:52 BP 170/89 H 12/12/23 08:00 Pulse Ox 92 12/12/23 08:00 O2 Del Method Nasal Cannula 12/12/23 08:00 O2 Flow Rate 2 12/12/23 08:00 FiO2 28 12/11/23 04:00 BMI result Body Mass Index 30.6 Const General: alert HEENT Head: Yes normocephalic and Yes atraumatic Neck Neck: Yes trachea midline, Yes supple and Yes no JVD Chest Chest palpation & inspection: normal inspection of the chest Resp Effort & Inspection: normal respiratory effort and prolonged expiratory phase Auscultation: no wheezes and diminished lung sounds Cardio Rate: regular rate Rhythm: regular rhythm Heart sounds: S1 normal heart sound present, S2 normal heart sound present, no gallops and Murmur heart sound present systolic early GI Palpation (GI): Soft to palpation Auscultation: normal bowel sounds Skin General skin exam: no rashes or lesions noted Neuro General: no focal motor deficits Extrem General: Yes no clubbing, cyanosis or edema Assessment & Plan Assessment & Plan (1) Asthma: Code(s): J45.909 - Unspecified asthma, uncomplicated Category: Medical Qualifiers: Asthma complication type: with acute exacerbation Asthma persistence: persistent Asthma severity: severe Qualified Code(s): J45.51 - Severe persistent asthma with (acute) exacerbation (2) JUANITO (obstructive sleep apnea): Code(s): G47.33 - Obstructive sleep apnea (adult) (pediatric) Category: Medical (3) Tobacco use disorder: Code(s): F17.200 - Nicotine dependence, unspecified, uncomplicated Category: Medical (4) COPD (chronic obstructive pulmonary disease): Code(s): J44.9 - Chronic obstructive pulmonary disease, unspecified Category: Medical Qualifiers: COPD type: chronic bronchitis Chronic bronchitis type: simple Qualified Code(s): J41.0 - Simple chronic bronchitis (5) Pulmonary nodules: Code(s): R91.8 - Other nonspecific abnormal finding of lung field Category: Medical (6) Allergies: Code(s): T78.40XA - Allergy, unspecified, initial encounter Category: Medical Qualifiers: Encounter type: initial encounter Qualified Code(s): T78.40XA - Allergy, unspecified, initial encounter (7) Hypogammaglobulinemia: Code(s): D80.1 - Nonfamilial hypogammaglobulinemia Category: Medical Plan Trelegy bloodwork in 2 weeks if IgG still low, then will request starting augmentation therapy continue oxygen supplementation with activity and sleep smoking cessation-quit repeat CT chest Fall 2023 LDCT program continue oxygen 1L/min while sleeping, 2l/pulse at rest and 3l/pulse with activity F/U 6-8 weeks Orders: Orders Basic Metabolic Panel Today D80.1 - Nonfamilial hypogammaglobulinemia, J45.51 - Severe persistent asthma with (acute) exacerbation, T78.40XA - Allergy, unspecified, initial encounter Immunoglobulins,IgG IgA IgM Today D80.1 - Nonfamilial hypogammaglobulinemia, J45.51 - Severe persistent asthma with (acute) exacerbation, T78.40XA - Allergy, unspecified, initial encounter Complete Blood Count Auto Diff Today D80.1 - Nonfamilial hypogammaglobulinemia, J45.51 - Severe persistent asthma with (acute) exacerbation, T78.40XA - A llergy, unspecified, initial encounter Erythrocyte Sedimentation Rate Today D80.1 - Nonfamilial hypogammaglobulinemia, J45.51 - Severe persistent asthma with (acute) exacerbation, T78.40XA - Allergy, unspecified, initial encounter Coding Level of Care Code Est Pt Level 4 (89572) Complex EM visit Add On G2211 Diagnoses Severe persistent asthma with acute exacerbation J45.51 Asthma complication type: with acute exacerbation Asthma persistence: persistent Asthma severity: severe JUANITO (obstructive sleep apnea) G47.33 Tobacco use disorder F17.200 Simple chronic bronchitis J41.0 COPD type: chronic bronchitis Chronic bronchitis type: simple Pulmonary nodules R91.8 Allergy, initial encounter T78.40XA Encounter type: initial encounter Hypogammaglobulinemia D80.1 Time Spent (min) 18
[2024-04-06 10:44] VITALS: BP 130/68; PULSE 80; O2SAT 95; BMI 38.0
== END 2024-04-06 11:08 | disposition home or self-care (01) ==
PROVIDERS: PCP Registered Nurse; Visit Provider Hospitalist
DX: J45.51 Severe persistent asthma with (acute) exacerbation (principal); G47.33 Obstructive sleep apnea (adult) (pediatric); F17.200 Nicotine dependence, unspecified, uncomplicated; J41.0 Simple chronic bronchitis; R91.8 Other nonspecific abnormal finding of lung field; T78.40XA Allergy, unspecified, initial encounter; D80.1 Nonfamilial hypogammaglobulinemia
CPT/HCPCS: 99214

== ENCOUNTER → 2024-04-06 10:35 | Outpatient (BNVA) | payer BC, SELFPAY | PROVIDERS: PCP Registered Nurse; Visit Provider Hospitalist | DX: D80.1 Nonfamilial hypogammaglobulinemia (principal) ==

== ENCOUNTER 2024-04-15 20:07 | Inpatient (IN) | payer BC, MEDICARE, SELFPAY ==
--- NOTE | ~2024-04-15 | XR_ITS ---
EXAMINATION: XR CHEST CLINICAL INFORMATION: Shortness of breath. COPD. COMPARISON: Chest x-ray March 24, 2024 TECHNIQUE: Frontal portable view of the chest was obtained. 12:04 AM FINDINGS: No significant abnormality is noted involving the heart, lungs, mediastinum, bony thorax or soft tissues. XR/XR chest 1V IMPRESSION: Unremarkable examination. Electronically signed by: Vaughn Tolentino MD 04/16/2024 12:23 AM EDT
[2024-04-15 20:24] VITALS: BP 164/67; PULSE 92; RESP 36; O2SAT 100; BMI 35.1
[2024-04-15] MEDS: Magnesium Sulfate/H2O 2 GM/50 ML PIGGYBACK IV (20:31)
[2024-04-15] MEDS: methylPREDNISolone Sod Succ 125 MG/2 ML VIAL IVPUSH (20:31)
[2024-04-15 20:45] VITALS: BP 170/76; PULSE 86; O2SAT 98
[2024-04-15] MEDS: Albuterol Sulfate 7.5 MG, Albuterol/Iprat 2.5/0.5MG 3 ML 3 ML INHALE (20:45)
[2024-04-15 20:46] VITALS: PULSE 85; RESP 23; RESP 36; O2SAT 98
[2024-04-15 20:48] LABS: MANUAL DIFF FLAG NO
[2024-04-15] MEDS: 0.9 % Sodium Chloride 2,000 ML 999 ML IVCONT (20:49)
[2024-04-15] MEDS: cefTRIAXone sodium 1 GM VIAL IVPUSH (20:49)
[2024-04-15 20:52] LABS: Basophils Absolute Auto 0.1 X10*3/uL (0.0-0.2); Basophils Percent Auto 0.6 % (0-2); Eosinophils Absolute Auto 0.5 X10*3/uL (0.0-0.4); Eosinophils Percent Auto 5.2 % (0-4); Hematocrit 42.6 % (37.0-47.0); Hemoglobin 13.7 g/dl (12.0-16.0); Imm Gran Abs Auto 0.03 X10*3/uL (0.00-0.03); Imm Gran Pct Auto 0.3 % (0.0-0.4); Lymphocytes Percent Auto 21.1 % (20-40); Mean Corpuscular HGB Conc 32.2 g/dl (31.0-35.0); Mean Corpuscular Hemoglobin 32.8 pg (27.0-33.0); Mean Corpuscular Volume 101.9 fL (80.0-98.0); Mean Platelet Volume 9.1 fL (9.4-12.3); Monocytes Percent Auto 10.2 % (2-11); Neutrophils Absolute Auto 5.9 x10*3/uL (2.0-8.3); Neutrophils Percent Auto 62.6 % (45-73); Platelet Count 285 X10*3/uL (160-400); Red Blood Count 4.18 X10*6/uL (4.20-5.50); Red Cell Distribution Width 13.2 % (11.0-16.0); White Blood Count 9.4 X10*3/uL (4.8-10.8)
[2024-04-15 20:53] LABS: VBG Base Excess 7.4 mmol/L; VBG HCO3 31 mmol/L (22-26); VBG pCO2 43 mmHg; VBG pH 7.47 (7.32-7.43); VBG pO2 151 mmHg
[2024-04-15] MEDS: Azithromycin 500 MG in 0.9 % Sodium Chloride 250 ML 125 MG IV (20:56)
[2024-04-15 21:03] LABS: Venous Blood Gas Refer to POC result
[2024-04-15 21:05] LABS: Ammonia 53 umol/L (13-55)
[2024-04-15 21:07] LABS: Lactic Acid 1.2 mmol/L (0.5-2.0)
[2024-04-15 21:13] LABS: Alanine Aminotransferase 95 U/L (0-31); Albumin Level 3.9 g/dL (3.5-5.0); Alkaline Phosphatase 140 U/L (39-117); Anion Gap 16 (12-20); Aspartate Amino Transferase 74 U/L (5-31); Bilirubin Total 0.2 mg/dL (0.0-1.0); Blood Urea Nitrogen 10 mg/dL (9-16); Calcium 9.2 mg/dL (8.4-10.2); Carbon Dioxide 27 mmol/L (22-29); Chloride 107 mmol/L (96-108); Creatinine Clr Calc Pharmacy 53.3; Estimated Glomerular Filt Rate 47; Glucose Random 100 mg/dL (60-115); Magnesium 2.1 mg/dL (1.6-2.6); Potassium 4.9 mmol/L (3.3-5.1); Sodium 145 mmol/L (135-145); Total Protein 6.9 g/dL (6.5-8.0)
[2024-04-15 21:14] LABS: B Type Natriuretic Peptide 29 pg/mL (<100)
[2024-04-15 21:18] LABS: Troponin-I High Sensitivity 4.7 ng/L (<3.5-17.0)
[2024-04-15 22:00] VITALS: PULSE 90; RESP 25; O2SAT 96
[2024-04-15] MEDS: Albuterol Sulfate 5 MG, Albuterol/Iprat 2.5/0.5MG 3 ML 3 ML INHALE (22:00)
[2024-04-15 22:37] VITALS: BP 139/64; PULSE 94; RESP 20; O2SAT 96
--- NOTE | 2024-04-15 22:40 | PC.NURSE ---
Attempted to trial patient off CPAP w/ RT Emmett, patient quickly began wheezing again / abd breathing, requested to have CPAP back on, mask replaced.
[2024-04-15 23:35] VITALS: PULSE 84; RESP 24; O2SAT 95
[2024-04-16] VITALS (15 sets, daily range): BP systolic 136–177; BP diastolic 50–78; PULSE 70–88; RESP 14–23; TEMP 36–36.8; O2SAT 94–100
[2024-04-16] MEDS: OXcarbazepine 300 MG TABLET 600 MG PO ×3 (00:02→22:51)
[2024-04-16] MEDS: VerapamiL HCL 120 MG TABLET PO ×3 (00:02→22:49)
[2024-04-16] MEDS: Gabapentin 400 MG CAPSULE 1200 MG PO ×4 (00:02→22:49)
[2024-04-16] MEDS: Atorvastatin Calcium 80 MG TABLET PO (00:02)
[2024-04-16] MEDS: Nicotine Polacrilex Lozenge 4 MG LOZENGE BUCCAL (00:07)
[2024-04-16] MEDS: Prazosin HCL 1 MG CAPSULE 2 MG PO ×2 (00:53→22:47)
[2024-04-16] MEDS: DULoxetine HCl 60 MG CAPSULE.DR PO ×3 (00:53→22:50)
--- NOTE | 2024-04-16 01:00 | ED.SOB ---
HPI - SOB/Dyspnea General Chief Complaint: Dyspnea Stated Complaint: COPD Time Seen by Provider: 04/15/24 20:28 Source: patient and EMS Mode of arrival: EMS Limitations: no limitations History of Present Illness ED Provider: Dr. Juli Aleman HPI Narrative: Patient comes to the emergency room complaining of shortness of breath. Patient was discharged from rehab a few days ago, patient states that earlier today she started feeling significantly short of breath. Patient was hoping that she would feel better but instead she kept getting worse despite using nebulization treatments. Patient usually uses 2-4 L of oxygen at home. On arrival, patient is speaking in 2-3 word sentences, hyperventilating. Oxygen saturation in the high 90s. However, patient was quite wheezy Related Data Home Medications ?Medication ?Instructions ?Recorded ?Confirmed atorvastatin 80 mg tablet 80 mg PO BEDTIME 03/04/23 04/15/24 osbdvxjdyl-eanuncoebmpxx-[id number] 1 - 2 tab PO DAILY PRN Headache 03/04/23 04/15/24 50 mg-325 mg-40 mg tablet duloxetine 60 mg capsule,delayed 60 mg PO BID 03/04/23 04/15/24 release gabapentin 300 mg capsule 1,200 mg PO TID 03/04/23 04/15/24 hydrocodone 5 mg-acetaminophen 325 1 tab PO BID PRN Pain 03/04/23 04/15/24 mg tablet hyoscyamine sulfate 0.125 mg tablet 0.125 - 0.25 mg PO Q4-6H PRN 03/04/23 04/15/24 Abdominal Discomfort lorazepam 1 mg tablet 1 mg PO DAILY PRN Anxiety 03/04/23 04/15/24 oxcarbazepine 600 mg tablet 600 mg PO BID 03/04/23 04/15/24 Oxygen Home Use 04/16/23 03/10/24 prazosin 2 mg capsule 2 mg PO BEDTIME 04/16/23 04/15/24 baclofen 15 mg tablet 15 mg PO TID 01/10/24 04/15/24 lidocaine 4 % topical cream 1 appl topical DAILY PRN Pain 01/17/24 04/15/24 vitamin B12 0.5 mg-folic acid 1 mg 1 tab PO DAILY 01/18/24 04/15/24 tablet albuterol sulfate 90 mcg/actuation 2 puff inhalation Q4H PRN 01/31/24 04/15/24 aerosol inhaler Shortness Of Breath Or Wheezing fluticasone fur. 200 mcg-umeclid 1 inh inhalation DAILY 02/14/24 04/15/24 62.5 mcg-vilant 25 mcg inhalat.powder (Trelegy Ellipta) guaifenesin 100 mg/5 mL oral liquid 200 mg PO Q6H PRN Congestion 03/24/24 04/15/24 Previous Rx's ?Medication ?Instructions ?Recorded aspirin 81 mg tablet,delayed 81 mg PO DAILY #90 tabs 12/16/23 release nebulizer and compressor #1 ea 12/16/23 ipratropium 0.5 mg-albuterol 3 mg 3 ml inhalation Q4H PRN for 03/02/24 (2.5 mg base)/3 mL nebulization dyspnea #180 mL soln nicotine (polacrilex) 4 mg buccal 4 mg buccal Q4-8H PRN nicotine 03/10/24 mini lozenge (Nicorette) cravings #81 ea verapamil 120 mg tablet 120 mg PO BID #60 tabs 03/28/24 prednisone 20 mg tablet 40 mg (2 x 20 mg) PO DAILY #2 tabs 03/29/24 Allergies Allergy/AdvReac Type Severity Reaction Status Date / Time Iodinated Contrast Media Allergy Intermediate HIVES Verified 04/15/24 20:25 [IV CONTRAST] latex [LATEX] Allergy Unknown RASH Verified 04/15/24 20:25 morphine [MORPHINE] AdvReac Unknown VOMITING Verified 04/15/24 20:25 Review of Systems Review of Systems: Constitutional : No Weight loss, No Fever, No Chills, No Night Sweats, No Fatigue, No Malaise ENT/Mouth : No Hearing loss, No Ear Pain, No Nasal Congestion, No Sinus Pain, No Hoarseness, No sore throat, No Rhinorrhea, No Swallowing Difficulty Eyes: No Eye Pain, No Swelling, No Redness, No Foreign Body, No Discharge, No Vision Changes Cardiovascular : No Chest Pain, No SOB, No Dyspnea on Exertion, No Orthopnea, No Edema, No Palpitations Respiratory : complaining of cough, shortness of breath Gastrointestinal : No Nausea, No Vomiting, No Diarrhea, No Constipation, No abdominal Pain, No Hematochezia, No Melena Genitourinary : no irregular bleeding, No Dysuria, No Urinary Frequency, No Hematuria, No Urinary Incontinence, No Urgency, No Flank Pain, No Urinary Flow Changes, No Hesitancy Musculoskeletal : No joint pain, No Myalgias, No Joint Swelling Skin : No Skin Lesions, No rash Neuro : No Weakness, No Numbness, No Paresthesias, No Loss of Consciousness, No Dizziness, No Headache Psych : No Anxiety/Panic, No Depression, No SI/HI/AH/VH, No Social Issues, Heme/Lymph: No Bruising, No Bleeding,No Lymphadenopathy Endocrine : No Polyuria, No Polydipsia, No Temperature Intolerance FOR[facility]LY [facility] Past Medical History Medical History (Reviewed 04/16/24 @ 01:02 EDT by Juli Aleman MD) Hypogammaglobulinemia Smoker JUANITO (obstructive sleep apnea) Allergies Hypertension Elevated troponin COPD (chronic obstructive pulmonary disease) Chronic hypercapnic respiratory failure Trigeminal neuralgia Pulmonary nodules Mixed hyperlipidemia Peripheral neuropathy Tobacco use disorder Mood disorder Surgical History History of esophagogastroduodenoscopy (EGD) History of colonoscopy History of lumbar discectomy History of tubal ligation History of excision of mass History of shoulder surgery Social History Social History Household Members: Spouse Housing: Condominium Do you presently have visiting nurse or other home services: Yes Alcohol intake: former Comment: pt refuses bed alarm. Patient Tobacco Use Status: Former Tobacco user Tobacco use type: Cigarette Cigarette Packs Per Day: 4 Cigarettes Per Day: 80.0 Years Smoked: 40 Smoked in Last 30 Days: No e-Cigarette/Vaping Use: Former Use Second Hand Smoke Exposure: No Use of substances other than those prescribed or required for medical reasons: No Substance Use Type: Marijuana Advance Directives: Yes Advance Directives on File: Yes Advance Directives Date on File: 03/09/23 Do you have a plan to hurt others: No Plan service: No Physical Exam Vital Signs: Vital Signs: Last Vital Signs Pulse 83 04/16/24 00:02 Resp 24 H 04/15/24 23:35 BP 136/64 04/16/24 00:53 Pulse Ox 96 04/15/24 22:37 O2 Del Method CPAP 04/15/24 22:37 O2 Flow Rate 3 04/15/24 22:37 Oxygen Flow Rate 10 04/15/24 20:24 BMI result Body Mass Index 35.1 Const: Other: Appearance: Alert. Oriented X3. No acute distress. Eyes: Pupils equal, round and reactive to light. ENT: Pharynx normal. Neck: Normal inspection. Neck supple. No lymph nodes noted. No crepitus CVS: Normal heart rate and rhythm. Pulses normal. Normal S1 and S2 Respiratory: difficulty breathing, tachypneic, significantly decreased breath sounds, expiratory wheezing Abdomen: Soft and nontender. No rigidity. No distention. Skin: Skin warm and dry. Normal skin color. Normal skin turgor. Extremities: No lower extremity edema. No Lacerations. No Rash Neuro: Oriented X 3. No motor deficit. No sensory deficit. Moving all extremities. No slurred speech. CN 2 through 12 grossly intact Psych: calm, cooperative, normal affect Medications Administered Generic Name Dose Route Start Last Admin Trade Name Freq PRN Reason Stop Dose Admin Atorvastatin Calcium 80 mg 04/15/24 23:15 04/16/24 00:02 Atorvastatin Calcium 80 Mg Tablet PO 80 mg BEDTIME CHAPARRO Administration Duloxetine HCl 60 mg 04/15/24 23:15 04/16/24 00:53 Duloxetine Hcl 60 Mg Capsule.Dr PO 60 mg BID CHAPARRO Administration Gabapentin 1,200 mg 04/15/24 23:15 04/16/24 00:02 Gabapentin 400 Mg Capsule PO 1,200 mg TID CHAPARRO Administration Nicotine Polacrilex 4 mg 04/15/24 23:11 04/16/24 00:07 Nicotine Polacrilex Lozenge 4 Mg Lozenge BUCCAL 4 mg Q4H PRN Administration nicotine cravings Oxcarbazepine 600 mg 04/15/24 23:15 04/16/24 00:02 Oxcarbazepine 300 Mg Tablet PO 600 mg BID CHAPARRO Administration Prazosin HCl 2 mg 04/15/24 23:15 04/16/24 00:53 Prazosin Hcl 1 Mg Capsule PO 2 mg BEDTIME CHAPARRO Administration Protocol Verapamil HCl 120 mg 04/15/24 23:15 04/16/24 00:02 Verapamil Hcl 120 Mg Tablet PO 120 mg BID CHAPARRO Administration Protocol Discontinued Medications Generic Name Dose Route Start Last Admin Trade Name Freq PRN Reason Stop Dose Admin Ceftriaxone Sodium 1 gm 04/15/24 20:29 04/15/24 20:49 Ceftriaxone Sodium 1 Gm Vial IVPUSH 04/15/24 20:30 1 gm ONCE ONE Administration Albuterol Sulfate 7.5 mg/ 0 mg 04/15/24 20:35 04/15/24 20:45 Albuterol/Ipratropium 3 ml INHALE 04/15/24 20:36 1 each ONCE ONE Administration Albuterol Sulfate 5 mg/ 0 mg 04/15/24 21:57 04/15/24 22:00 Albuterol/Ipratropium 3 ml INHALE 04/15/24 21:58 1 each ONCE ONE Administration Magnesium Sulfate 2 gm in 50 mls @ 25 mls/hr 04/15/24 20:29 04/15/24 23:15 Magnesium Sulfate/H2o IV 04/15/24 22:28 Infused ONCE ONE Infusion Azithromycin 500 mg/ Sodium 250 mls @ 125 mls/hr 04/15/24 20:29 04/15/24 23:16 Chloride IV 04/15/24 22:28 Infused ONCE ONE Infusion Sodium Chloride 2,000 mls @ 999 mls/hr 04/15/24 20:31 04/15/24 23:15 Ns IVCONT 04/15/24 22:31 Infused .Q2H1M ONE Infusion Methylprednisolone Sodium Succinate 125 mg 04/15/24 20:29 04/15/24 20:31 Methylprednisolone Sod Succ 125 Mg/2 Ml Vial IVPUSH 04/15/24 20:30 125 mg ONCE ONE Administration Medical Decision Making Medical Decision Making [facility] Narrative: my interpretation of labs, normal hematology and chemistry, no significant abnormality in blood gases - patient was not significantly respiratory distress. Patient was giving albuterol, Solu-Medrol, magnesium. - Patient was started on BiPAP. Initially, patient did not want to use a mask due to history of trigeminal neuralgia. However, given her respiratory distress, patient agreed to use it. - Patient did well with the BiPAP, no breathing comfortably. Patient uses BiPAP at home, patient will be going up to the floor. At this time, patient is awake, alert, speaks in full sentences. - Patient was empirically treated on arrival with IV antibiotics given her comorbidities. - Patient's blood pressure stable, normal lactic acid, normal white blood cell count, no fever, sepsis is not suspected Differential Diagnosis Differential Diagnoses: The differential diagnosis associated with the presentation includes ( asthma, chronic lung disease, viral illness) Admission/Observation Consideration of admission/observation: Escalation of care including admission/observation considered Consult Healthcare Provider Management of the patient was discussed with: Hospitalist Lab Data MDM Lab Attestation statement: I reviewed the patient's lab results. 04/15/24 20:41 04/15/24 20:41 Labs: Lab Results 04/15/24 04/15/24 04/15/24 Range/Units 20:41 20:42 20:48 WBC 9.4 (4.8-10.8) X10*3/uL RBC 4.18 L (4.20-5.50) X10*6/uL Hgb 13.7 (12.0-16.0) g/dl Hct 42.6 (37.0-47.0) % MCV 101.9 H (80.0-98.0) fL MCH 32.8 (27.0-33.0) pg MCHC 32.2 (31.0-35.0) g/dl RDW 13.2 (11.0-16.0) % Plt Count 285 (160-400) X10*3/uL MPV 9.1 L (9.4-12.3) fL Immature Gran % (Auto) 0.3 (0.0-0.4) % Neut % (Auto) 62.6 (45-73) % Lymph % (Auto) 21.1 (20-40) % [place] % (Auto) 10.2 (2-11) % Eos % (Auto) 5.2 H (0-4) % Baso % (Auto) 0.6 (0-2) % Lymph # (Auto) 2.0 (1.2-4.9) X10*3/uL [place] # (Auto) 1.0 (0.1-1.2) X10*3/uL Eos # (Auto) 0.5 H (0.0-0.4) X10*3/uL Baso # (Auto) 0.1 (0.0-0.2) X10*3/uL Abs Immat Gran (auto) 0.03 (0.00-0.03) X10*3/uL Absolute Neuts (auto) 5.9 (2.0-8.3) x10*3/uL Absolute Nucleated RBC 0.000 (0.0-0.012) X10*3/uL Nucleated RBC % (auto) 0.0 (0.0-0.2) /100WBC Hold Blue Top SEE NOTE VBG pH 7.47 H (7.32-7.43) VBG pCO2 43 mmHg VBG pO2 151 mmHg VBG HCO3 31 H (22-26) mmol/L VBG O2 Saturation 99.0 % VBG Base Excess 7.4 mmol/L Sodium 145 (135-145) mmol/L Potassium 4.9 D (3.3-5.1) mmol/L Chloride 107 (96-108) mmol/L Carbon Dioxide 27 (22-29) mmol/L Anion Gap 16 (12-20) BUN 10 (9-16) mg/dL Creatinine 1.18 (0.5-1.4) mg/dL Estim Creat Clear Calc 53.3 Estimated GFR 47 Random Glucose 100 (60-115) mg/dL Lactic Acid 1.2 (0.5-2.0) mmol/L Calcium 9.2 D (8.4-10.2) mg/dL Magnesium 2.1 (1.6-2.6) mg/dL Total Bilirubin 0.2 (0.0-1.0) mg/dL AST 74 H (5-31) U/L ALT 95 H (0-31) U/L Alkaline Phosphatase 140 H (39-117) U/L Ammonia 53 (13-55) umol/L Troponin I High Sens 4.7 D (<3.5-17.0) ng/L B-Natriuretic Peptide 29 (<100) pg/mL Total Protein 6.9 (6.5-8.0) g/dL Albumin 3.9 (3.5-5.0) g/dL Independent Interpretation I performed an independent interpretation of an: Plain X-Ray Radiology Impression Discussion of test interpretation with radiology: I have reviewed the radiologist's reading. Radiologist Impression: No significant abnormality is noted involving the heart, lungs, mediastinum, bony thorax or soft tissues. XR/XR chest 1V IMPRESSION: Unremarkable examination. Critical Care Time Critical Care Time Critical Care Time: Yes Total Critical Care Time: 75 Attestation: I have personally provided critical care time. Time includes review of lab data, radiology results, discussion with consultants, and monitoring for potential decompensation. Intervention performed as documented. Discharge Plan Discharge Clinical Impression: Chronic lung disease, Respiratory failure Patient Disposition: Admitted As Inpatient Prescriptions: No Action ipratropium-albuterol 0.5 mg-3 mg(2.5 mg base)/3 mL solution for nebulization 3 ml inhalation Q4H PRN (Reason: for dyspnea) Qty: 180 11RF verapamil 120 mg tablet 120 mg PO BID Qty: 60 1RF baclofen 15 mg Tablet 15 mg PO TID MDD 45 lidocaine 4 % Cream 1 appl TOPICAL DAILY PRN (Reason: Pain) vitamin [id number] acid 0.5-1 mg Tablet 1 tab PO DAILY Trelegy Ellipta 200-62.5-25 mcg Blister With Device 1 inh INHALATION DAILY atorvastatin 80 mg tablet 80 mg PO BEDTIME hydrocodone-acetaminophen 5-325 mg tablet 1 tab PO BID PRN (Reason: Pain) acfjfdcxur-cyhqxvvnomtvv-dpmm 50-325-40 mg tablet 1 - 2 tab PO DAILY PRN (Reason: Headache) hyoscyamine sulfate 0.125 mg tablet 0.125 - 0.25 mg PO Q4-6H PRN (Reason: Abdominal Discomfort) gabapentin 300 mg capsule 1,200 mg PO TID oxcarbazepine 600 mg tablet 600 mg PO BID lorazepam 1 mg tablet 1 mg PO DAILY PRN (Reason: Anxiety) duloxetine 60 mg capsule,delayed release(DR/EC) 60 mg PO BID aspirin 81 mg Tablet,Delayed Release (Dr/Ec) 81 mg PO DAILY Qty: 90 0RF (DME) nebulizer and compressor Device See Rx Instructions .Route Qty: 1 0RF Rx Instructions: As directed albuterol sulfate 90 mcg/actuation HFA aerosol inhaler 2 puff inhalation Q4H PRN (Reason: Shortness Of Breath Or Wheezing) guaifenesin 100 mg/5 mL liquid 200 mg PO Q6H PRN (Reason: Congestion) prednisone 20 mg tablet 40 mg PO DAILY Qty: 2 0RF nicotine (polacrilex) [Nicorette] 4 mg mini lozenge 4 mg buccal Q4-8H PRN (Reason: nicotine cravings) Qty: 81 0RF prazosin 2 mg capsule 2 mg PO BEDTIME (DME) Oxygen Home Use Kit See Rx Instructions .Route Rx Instructions: As directed Print Language: Armenian
--- NOTE | 2024-04-16 01:08 | PC.NURSE ---
medicated per pt aug, assisted with a drink of water, pt back on bipap
--- NOTE | 2024-04-16 01:34 | PM.IMHP ---
History of Present Illness Date of Service: 04/16/24 Attending physician on admission: Desiree Peoples Chief Complaint: Shortness on breath Zulma Alves is a 59 years old woman with past medical history significant for chronic hypoxic respiratory failure due to COPD on home oxygen 3 L/min + nocturnal BiPAP, obesity, MVR, hyperlipidemia and hypertension presents to the emergency department complaining of worsening shortness on breath over the last couple of days associated with wheezing, chest tightness and cough. She tried bronchodilator therapy at home without significant improvement of symptoms. She denied any headache, palpitations, dizziness, fevers chills. She did not report any acute gastrointestinal or genitourinary symptoms. She denied recent tobacco smoking. She does eat marijuana but denies smoking it. Denied alcohol abuse or illicit drug use. Patient was recently hospitalized due to respiratory failure. She was recently discharged from rehab. She is a former smoker. In the ED, she was found to have marked tachypnea. There is no tachycardia or hypotension. She is currently on BiPAP (nocturnal). Blood workup showed no leukocytosis. There is no lactic acidosis. Hemoglobin and platelets are normal. There is no electrolyte imbalances. Creatinine is 1.18 and BUN 10. Transaminases are slightly elevated as well as alk phos. Bilirubin is normal. Troponin is 4.7 and BNP is 29. VBG showed no respiratory acidosis. CXR is unremarkable. ED tx: Azithromycin 500 mg IV, ceftriaxone 1 g IV magnesium 2 g IV Solu-Medrol 125 mg IV, DuoNebs Review of Systems Review of Systems: All 12 systems were reviewed and normal except as noted in HPI. PENDING SALE TO [facility] Medical History (Reviewed 04/16/24 @ 01:02 EDT by Juli Aleman MD) Hypogammaglobulinemia Smoker JUANITO (obstructive sleep apnea) Allergies Hypertension Elevated troponin COPD (chronic obstructive pulmonary disease) Chronic hypercapnic respiratory failure Trigeminal neuralgia Pulmonary nodules Mixed hyperlipidemia Peripheral neuropathy Tobacco use disorder Mood disorder Surgical History History of esophagogastroduodenoscopy (EGD) History of colonoscopy History of lumbar discectomy History of tubal ligation History of excision of mass History of shoulder surgery Social History Household Members: Spouse Housing: Condominium Do you presently have visiting nurse or other home services: Yes Alcohol intake: former Comment: pt refuses bed alarm. Patient Tobacco Use Status: Former Tobacco user Tobacco use type: Cigarette Cigarette Packs Per Day: 4 Cigarettes Per Day: 80.0 Years Smoked: 40 Smoked in Last 30 Days: No e-Cigarette/Vaping Use: Former Use Second Hand Smoke Exposure: No Use of substances other than those prescribed or required for medical reasons: No Substance Use Type: Marijuana Advance Directives: Yes Advance Directives on File: Yes Advance Directives Date on File: 03/09/23 Do you have a plan to hurt others: No Plan service: No Meds Allergies Allergy/AdvReac Type Severity Reaction Status Date / Time Iodinated Contrast Media Allergy Intermediate HIVES Verified 04/15/24 20:25 [IV CONTRAST] latex [LATEX] Allergy Unknown RASH Verified 04/15/24 20:25 morphine [MORPHINE] AdvReac Unknown VOMITING Verified 04/15/24 20:25 Active Medications: Current Medications Acetaminophen (Acetaminophen 325 Mg Tablet) 975 mg PO Q6H PRN PRN Reason: Pain, Mild (Pain Scale 1-3), fever or headache Albuterol Sulfate (Albuterol Sulfate (0.083%) 2.5 Mg/3 Ml Vial.Neb) 2.5 mg INHALE Q2H PRN PRN Reason: Shortness of Breath/Wheezing Albuterol/Ipratropium (Albuterol/Iprat 2.5/0.5mg 3 Ml Ampul.Neb) 3 ml INHALE Q4H PRN PRN Reason: for dyspnea Albuterol/Ipratropium (Albuterol/Iprat 2.5/0.5mg 3 Ml Ampul.Neb) 3 ml INHALE RQ4H WHILE AWAKE [facility] Aspirin (Aspirin Enteric Coated 81 Mg Tablet.) 81 mg PO DAILY [facility] Atorvastatin Calcium (Atorvastatin Calcium 80 Mg Tablet) 80 mg PO BEDTIME [facility] Last Admin: 04/16/24 00:02 Dose: 80 mg Baclofen (Baclofen 10 Mg Tablet) 15 mg PO TID [facility] Cyanocobalamin (Cyanocobalamin (Vitamin B-12) 1,000 Mcg Tablet) 500 mcg PO DAILY [facility] Duloxetine HCl (Duloxetine Hcl 60 Mg Capsule.) 60 mg PO BID [facility] Last Admin: 04/16/24 00:53 Dose: 60 mg Enoxaparin Sodium (Enoxaparin Sodium 40 Mg/0.4 Ml Syringe) 40 mg SUBCUT Q24H [facility] Fluticasone/Umeclidinium/Vilanterol (Fluticasone/Umeclidinium/Vilanterol 200/62.5/25 Blst.W.Dev) 1 puff INHALE DAILY [facility] Folic Acid (Folic Acid 1 Mg Tablet) 1 mg PO DAILY [facility] Gabapentin (Gabapentin 400 Mg Capsule) 1,200 mg PO TID [facility] Last Admin: 04/16/24 00:02 Dose: 1,200 mg Guaifenesin (Guaifenesin 200 Mg/10 Ml 10 Ml Liquid) 10 ml PO Q6H PRN PRN Reason: Congestion Azithromycin 500 mg/ Sodium (Chloride) 250 mls @ 125 mls/hr IV Q24H [facility] Methylprednisolone Sodium Succinate (Methylprednisolone Sod Succ 40 Mg/Ml Vial) 40 mg IV Q12H [facility] Nicotine Polacrilex (Nicotine Polacrilex Lozenge 4 Mg Lozenge) 4 mg BUCCAL Q4H PRN PRN Reason: nicotine cravings Last Admin: 04/16/24 00:07 Dose: 4 mg Oxcarbazepine (Oxcarbazepine 300 Mg Tablet) 600 mg PO BID [facility] Last Admin: 04/16/24 00:02 Dose: 600 mg Prazosin HCl (Prazosin Hcl 1 Mg Capsule) 2 mg PO BEDTIME [facility]; Protocol Last Admin: 04/16/24 00:53 Dose: 2 mg Sodium Chloride (0.9 % Sodium Chloride Flush 3 Ml Syringe) 3 ml IVFLUSH QSHIFT [facility] Verapamil HCl (Verapamil Hcl 120 Mg Tablet) 120 mg PO BID [facility]; Protocol Last Admin: 04/16/24 00:02 Dose: 120 mg Home Medications ?Medication ?Instructions ?Recorded ?Confirmed ?Last Taken ?Type atorvastatin 80 mg tablet 80 mg PO BEDTIME 03/04/23 04/15/24 04/15/24 History [id number] 1 - 2 tab PO DAILY PRN Headache 03/04/23 04/15/24 1 Day Ago History 50 mg-325 mg-40 mg tablet ~01/16/24 duloxetine 60 mg capsule,delayed 60 mg PO BID 03/04/23 04/15/24 04/15/24 History release gabapentin 300 mg capsule 1,200 mg PO TID 0904/15/24 04/15/24 14:00 History hydrocodone 5 mg-acetaminophen 325 1 tab PO BID PRN Pain 03/04/23 04/15/24 04/14/24 History mg tablet hyoscyamine sulfate 0.125 mg tablet 0.125 - 0.25 mg PO Q4-6H PRN 03/04/23 04/15/24 04/14/24 History Abdominal Discomfort lorazepam 1 mg tablet 1 mg PO DAILY PRN Anxiety 03/04/23 04/15/24 04/14/24 History oxcarbazepine 600 mg tablet 600 mg PO BID 03/04/23 04/15/24 04/15/24 History 0800 Oxygen Home Use 04/16/23 03/10/24 03/10/24 History prazosin 2 mg capsule 2 mg PO BEDTIME 04/16/23 04/15/24 04/14/24 History baclofen 15 mg tablet 15 mg PO TID 01/10/24 04/15/24 04/15/24 08:00 History lidocaine 4 % topical cream 1 appl topical DAILY PRN Pain 01/17/24 04/15/24 04/15/24 History vitamin B12 0.5 mg-folic acid 1 mg 1 tab PO DAILY 01/18/24 04/15/24 03/24/24 History tablet albuterol sulfate 90 mcg/actuation 2 puff inhalation Q4H PRN 01/31/24 04/15/24 04/15/24 History aerosol inhaler Shortness Of Breath Or Wheezing fluticasone fur. 200 mcg-umeclid 1 inh inhalation DAILY 02/14/24 04/15/24 04/15/24 History 62.5 mcg-vilant 25 mcg inhalat.powder (Trelegy Ellipta) guaifenesin 100 mg/5 mL oral liquid 200 mg PO Q6H PRN Congestion 03/24/24 04/15/24 Unknown History Physical Exam Vital Signs and Narrative: Vital Signs: Last Vital Signs Pulse 83 04/16/24 00:02 Resp 24 H 04/15/24 23:35 BP 136/64 04/16/24 00:53 Pulse Ox 96 04/15/24 22:37 O2 Del Method CPAP 04/15/24 22:37 O2 Flow Rate 3 04/15/24 22:37 Oxygen Flow Rate 10 04/15/24 20:24 BMI result Body Mass Index 35.1 Constitutional - Awake and Alert. On nocturnal BiPAP. Afebrile. Pleasant. Obese. HEENT - PER, EOMI. Heart - RRR, no murmurs. Lungs - Normal lung expansion, Normal respiratory effort. Tachypnea. End expiratory wheezes. No crackles or rhonchi. Abdomen - NT / ND; +BS; No rebound or guarding - No CVA tenderness Extremities - no calf tenderness bilaterally, no swelling Musculoskeletal - Normal inspection, normal ROM Skin - Warm/Dry. No pallor. Neurological - Alert & oriented x3. No focal weakness. Normal speech. Psychological - Appropriate affect Results Labs 04/15/24 20:41 04/15/24 20:41 Labs: Laboratory Results - last 24 hr 04/15/24 04/15/24 04/15/24 20:41 20:42 20:48 MCV 101.9 H MCH 32.8 MCHC 32.2 RDW 13.2 Plt Count 285 MPV 9.1 L Immature Gran % (Auto) 0.3 Neut % (Auto) 62.6 Lymph % (Auto) 21.1 Routt % (Auto) 10.2 Eos % (Auto) 5.2 H Baso % (Auto) 0.6 Lymph # (Auto) 2.0 Routt # (Auto) 1.0 Eos # (Auto) 0.5 H Baso # (Auto) 0.1 Abs Immat Gran (auto) 0.03 Absolute Neuts (auto) 5.9 Absolute Nucleated RBC 0.000 Nucleated RBC % (auto) 0.0 Hold Blue Top SEE NOTE VBG pH 7.47 H VBG pCO2 43 VBG pO2 151 VBG HCO3 31 H VBG O2 Saturation 99.0 VBG Base Excess 7.4 Anion Gap 16 Estim Creat Clear Calc 53.3 Estimated GFR 47 Random Glucose 100 Lactic Acid 1.2 Calcium 9.2 D Magnesium 2.1 Total Bilirubin 0.2 AST 74 H ALT 95 H Alkaline Phosphatase 140 H Ammonia 53 Troponin I High Sens 4.7 D B-Natriuretic Peptide 29 Total Protein 6.9 Albumin 3.9 Imaging Radiologist's Impressions: Impressions Chest X-Ray 04/15/24 22:10 IMPRESSION: Unremarkable examination. Electronically signed by: Vaughn Tolentino MD 04/16/2024 12:23 AM EDT RP Assessment and Plan (1) Acute and chronic respiratory failure: Qualifiers: Respiratory failure complication: hypoxia Qualified Code(s): J96.21 - Acute and chronic respiratory failure with hypoxia Status: Acute (2) Acute exacerbation of chronic obstructive airways disease: Status: Acute Plan Zulma Alves is a 59 y/o woman admitted with: Acute on chronic hypoxic respiratory failure due to COPD exacerbation and underlying JUANITO. Admit to hospitalist service. Pulse oximetry. Telemetry. Continue supplemental oxygen to keep O2 sats > 88%. Will start empiric IV antibiotic therapy with Zosyn as there is concern for underlying immunodeficiency, history of multiple upper respiratory tract infections including recent hospitalization for same symptoms. Continue bronchodilator therapy and IV steroids. Recheck IgG. Nocturnal BiPAP. 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 Hypertension. Continue amlodipine. Elevated transaminases. Normal bilirubin. Fatty liver? Statin? Denied abdominal pain. Continue to monitor for now. Trigeminal neuralgia. Continue baclofen, gabapentin, oxcarbazepine and duloxetine. Mood disorder. Continue duloxetine and prazosin. Old CVA. Continue aspirin and atorvastatin. Obesity, class II. BMI 35.1 kg/m2. Weight loss. Hyperlipidemia. Continue statin. HFpEF. No evidence of pulmonary congestion, edema or overload. Code status: Full DVT prophylaxis: Lovenox Patient will need hospitalization for at least 2 midnights for acute on chronic hypoxic respiratory failure due to COPD exacerbation with supplemental oxygen, IV steroids and bronchodilator therapy. Quality Stroke Does the patient have a stroke diagnosis?: No VTE Prior VTE?: No VTE Risk Level:: Medical - moderate - high VTE Device Contraindication: Treatment Not Indicated VTE Drug Contraindication: N/A - Med Ordered
[2024-04-16] MEDS: Piperacillin Sodium/Tazobactam 3.375 GM in 0.9 % Sodium Chloride 50 ML IV ×3 (02:45→14:46)
[2024-04-16 03:29] LABS: Influenza A PCR NEGATIVE (Negative); Influenza B PCR NEGATIVE (Negative); Resp Syncy Virus RNA Qual PCR NEGATIVE (Negative); SARS COV2 PCR INHOUSE NEGATIVE (Negative)
--- NOTE | 2024-04-16 04:35 | PC.NURSE ---
Pt requesting to come off bipap, respiratory called, pt placed on 2l nasal cannula, tolerating well at this time.
[2024-04-16 05:06] LABS: Basophils Percent Auto 0.3 % (0-2); Hematocrit 39.6 % (37.0-47.0); Hemoglobin 12.8 g/dl (12.0-16.0); Imm Gran Abs Auto 0.02 X10*3/uL (0.00-0.03); Imm Gran Pct Auto 0.3 % (0.0-0.4); Lymphocytes Absolute Auto 0.4 X10*3/uL (1.2-4.9); Lymphocytes Percent Auto 5.3 % (20-40); MANUAL DIFF FLAG SCAN; Mean Corpuscular HGB Conc 32.3 g/dl (31.0-35.0); Mean Corpuscular Hemoglobin 32.6 pg (27.0-33.0); Mean Corpuscular Volume 100.8 fL (80.0-98.0); Mean Platelet Volume 9.2 fL (9.4-12.3); Monocytes Absolute Auto 0.1 X10*3/uL (0.1-1.2); Neutrophils Absolute Auto 6.3 x10*3/uL (2.0-8.3); Neutrophils Percent Auto 93.1 % (45-73); Platelet Count 296 X10*3/uL (160-400); Red Blood Count 3.93 X10*6/uL (4.20-5.50); Red Cell Distribution Width 13.2 % (11.0-16.0); SCAN SMEAR FLAG 1; White Blood Count 6.8 X10*3/uL (4.8-10.8)
--- NOTE | 2024-04-16 05:16 | PC.NURSE ---
Pt given a sandwich and a drink. pt on 2l nasal cannual doing well.
[2024-04-16 05:23] LABS: Anion Gap 17 (12-20); Blood Urea Nitrogen 11 mg/dL (9-16); Calcium 8.8 mg/dL (8.4-10.2); Carbon Dioxide 21 mmol/L (22-29); Chloride 110 mmol/L (96-108); Creatinine Clr Calc Pharmacy 73.1; Estimated Glomerular Filt Rate > 60; Glucose Random 165 mg/dL (60-115); Magnesium 2.3 mg/dL (1.6-2.6); Potassium 4.5 mmol/L (3.3-5.1); Sodium 143 mmol/L (135-145)
[2024-04-16 05:30] LABS: SLIDE REVIEW VERIFIED
[2024-04-16] MEDS: HYDROcodone Bit/Acetam 5/325 TABLET 1 TAB PO ×2 (06:07→23:11)
--- NOTE | 2024-04-16 06:13 | PC.NURSE ---
Medicated per aug, pt called respiratory to place pt on bipap per pt request.
[2024-04-16] MEDS: Albuterol/Iprat 2.5/0.5MG 3 ML AMPUL.NEB INHALE ×4 (08:08→20:07)
--- NOTE | 2024-04-16 08:44 | PC.NURSE ---
Care of Pt assumed at change of shift. Pt resting quietly in bed. Pt requests BiPap be removed for breakfast--RT to bedside for removal and Pt placed on NC. Pt doing well with breakfast. After breakfast, RT also administered updraft Tx. Pt tolerated well. Pt will be transported to 8 inpatient.
[2024-04-16] MEDS: methylPREDNISolone Sod Succ 40 MG/ML VIAL IV ×2 (09:43→22:51)
[2024-04-16] MEDS: Baclofen 10 MG TABLET 15 MG PO ×3 (09:44→22:48)
[2024-04-16] MEDS: Folic Acid 1 MG TABLET PO (09:46)
[2024-04-16] MEDS: Cyanocobalamin (Vitamin B-12) 1,000 MCG TABLET 500 MCG PO (09:46)
[2024-04-16] MEDS: Aspirin Enteric Coated 81 MG TABLET.DR PO (09:46)
[2024-04-16] MEDS: Enoxaparin Sodium 40 MG/0.4 ML SYRINGE SUBCUT (09:48)
--- NOTE | 2024-04-16 11:04 | PHA.MEDREC ---
Addendum entered by Pat Martin RPh 04/16/24 11:50: Jam REVIEWED Original Note: Pharmacy Consult ? Medication Reconciliation Pharmacy has completed the medication reconciliation. Spoke to pt to confirm meds. Per patient, takes 1 full tablet of lorazepam 1 mg at a time PRN anxiety.
[2024-04-16] MEDS: 0.9 % Sodium Chloride Flush 3 ML SYRINGE IVFLUSH (14:49)
--- NOTE | 2024-04-16 15:54 | PM.EVENT ---
Event Note Date of Service: 04/16/24 Event Note: seen and examined this morning follow up for COPD exacerbation awake, alert breathing improving Acute on chronic hypoxic respiratory failure due to COPD exacerbation and underlying JUANITO. initially required Bipap in ED (despite saying she cant use it due to trigeminal neuralgia) Continue supplemental oxygen to keep O2 sats > 88%. Continue empiric IV antibiotic therapy with azithromycin, bronchodilator therapy and IV steroids. Patient has been followed by Dr. Denys Henriquez, as an outpatient -workup for immunodeficiency as the patient has had multiple upper respiratory tract infections. baseline trelegy chronic hypoxic resp failure continue home O2, goal SaO2 88-92% mild transaminitis hold statin for now no abdominal pain follow LFTs HLD hx CVA - ASA, hold atorvastatin for elevated LFTs HTN - verapamil trigeminal/occipital neuralgia - baclofen, gabapentin, oxcarbazepine, duloxetine tobacco abuse - NRT but pt only tolerates mini lozenges mood disorder - continue duloxetine + prazosin chronic leg edema requested to resume po lasix Obesity, class II. BMI 35.1 kg/m2. Weight loss. VTE ppx - enoxaparin juanito pt states she does not use cpap/bipap at home/can not tolerate due to trigeminal neuralgia Time Spent With Patient Time: Total time managing care of this patient today ____ minutes.
[2024-04-16] MEDS: Fluticasone/Umeclidinium/Vilanterol 200/62.5/25 BLST.W.DEV 1 PUFF INHALE (16:39)
[2024-04-16] MEDS: Azithromycin 500 MG in 0.9 % Sodium Chloride 250 ML 125 MG IV (22:51)
[2024-04-16] MEDS: LORazepam 1 MG TABLET PO (23:12)
--- NOTE | 2024-04-16 23:54 | PC.RT ---
Patient refuses BIPAP tonight, citing pain in facial area. 3-11 RN consulted. Patient instructed to alert staff if she wishes to wer Bipap tonight. She has unlabored respirations at a rate of 17 and SPO2 95 on 1.5L NC.
[2024-04-17] VITALS (15 sets, daily range): BP systolic 140–162; BP diastolic 65–75; PULSE 76–93; RESP 16–22; TEMP 36.3–37.1; O2SAT 91–98
[2024-04-17] MEDS: 0.9 % Sodium Chloride Flush 3 ML SYRINGE IVFLUSH ×3 (00:12→14:55)
[2024-04-17] MEDS: Albuterol Sulfate (0.083%) 2.5 MG/3 ML VIAL.NEB INHALE (01:54)
[2024-04-17 06:45] LABS: Alanine Aminotransferase 69 U/L (0-31); Albumin Level 3.9 g/dL (3.5-5.0); Alkaline Phosphatase 123 U/L (39-117); Aspartate Amino Transferase 25 U/L (5-31); Bilirubin Direct < 0.2 mg/dL (0.0-0.5); Bilirubin Total 0.1 mg/dL (0.0-1.0); Total Protein 6.3 g/dL (6.5-8.0)
[2024-04-17] MEDS: Albuterol/Iprat 2.5/0.5MG 3 ML AMPUL.NEB INHALE ×4 (08:10→20:25)
[2024-04-17] MEDS: Fluticasone/Umeclidinium/Vilanterol 200/62.5/25 BLST.W.DEV 1 PUFF INHALE (08:12)
[2024-04-17] MEDS: Gabapentin 400 MG CAPSULE 1200 MG PO ×3 (08:37→21:25)
[2024-04-17] MEDS: methylPREDNISolone Sod Succ 40 MG/ML VIAL IV ×2 (08:37→19:37)
[2024-04-17] MEDS: OXcarbazepine 300 MG TABLET 600 MG PO ×2 (08:37→21:26)
[2024-04-17] MEDS: Enoxaparin Sodium 40 MG/0.4 ML SYRINGE SUBCUT (08:37)
[2024-04-17] MEDS: Furosemide 20 MG TABLET PO (08:37)
[2024-04-17] MEDS: Cyanocobalamin (Vitamin B-12) 1,000 MCG TABLET 500 MCG PO (08:38)
[2024-04-17] MEDS: VerapamiL HCL 120 MG TABLET PO ×2 (08:38→21:28)
[2024-04-17] MEDS: Folic Acid 1 MG TABLET PO (08:38)
[2024-04-17] MEDS: Aspirin Enteric Coated 81 MG TABLET.DR PO (08:39)
[2024-04-17] MEDS: DULoxetine HCl 60 MG CAPSULE.DR PO ×2 (08:39→21:25)
[2024-04-17] MEDS: Baclofen 10 MG TABLET 15 MG PO ×3 (08:39→21:25)
[2024-04-17] MEDS: HYDROcodone Bit/Acetam 5/325 TABLET 1 TAB PO ×2 (08:43→21:29)
[2024-04-17 10:38] LABS: Immunoglobulin G 421 mg/dL (600-1540)
--- NOTE | 2024-04-17 11:27 | MHC.CM.PN ---
Pt. lives with her Chris, HCP names him, and it is on file and confirmed. PCP is confirmed: Sirisha Huertas. DEM: home O2 from [facility], shower chair and rollator walker. Pt went to [facility] after last hosp stay on 03/29/24. She said she will not go back there. She is getting VNA services from [facility]. She will need assistance with transport home at [place]. DCP: home, resume VNA services.
--- NOTE | 2024-04-17 12:06 | P.PNIM_ITS ---
Subjective Subjective Date of Service: 04/18/24 Review of Systems Follow up SOB, COPD exacerbation Physical Exam 2 Vital Signs: Vital Signs: Last Vital Signs Temp 98.7 F 04/17/24 11:31 Pulse 87 04/17/24 11:31 Resp 19 04/17/24 11:31 BP 140/67 H 04/17/24 07:37 Pulse Ox 98 04/17/24 07:37 O2 Del Method Nasal Cannula 04/17/24 07:37 O2 Flow Rate 1 04/17/24 07:37 Oxygen Flow Rate 10 04/15/24 20:24 BMI result Body Mass Index 35.1 Appearing in no acute distress lung sounds are clear to auscultation heart regular rate rhythm, clear S1, S2 positive bowel sounds, abdomen is soft, nontender neuro patient is alert x3, no focal deficits Objective Data Active Medications Acetaminophen (Acetaminophen 325 Mg Tablet) 975 mg PO Q6H PRN PRN Reason: Pain, Mild (Pain Scale 1-3), fever or headache Hydrocodone Bitart/Acetaminophen (Hydrocodone Bit/Acetam 5/325 Tablet) 1 tab PO BID PRN PRN Reason: Pain, Severe (Pain Scale 7-10) Last Admin: 04/17/24 08:43 Dose: 1 tab Documented By: HOLLI Albuterol Sulfate (Albuterol Sulfate (0.083%) 2.5 Mg/3 Ml Vial.Neb) 2.5 mg INHALE Q2H PRN PRN Reason: Shortness of Breath/Wheezing Last Admin: 04/17/24 01:54 Dose: 2.5 mg Documented By: JOHN Albuterol/Ipratropium (Albuterol/Iprat 2.5/0.5mg 3 Ml Ampul.Neb) 3 ml INHALE Q4H PRN PRN Reason: for dyspnea Albuterol/Ipratropium (Albuterol/Iprat 2.5/0.5mg 3 Ml Ampul.Neb) 3 ml INHALE RQ4H WHILE AWAKE [facility] Last Admin: 04/17/24 11:31 Dose: Not Given Documented By: MURRAY Non-Admin Reason: Patient Refused Aspirin (Aspirin Enteric Coated 81 Mg Tablet.) 81 mg PO DAILY [facility] Last Admin: 04/17/24 08:39 Dose: 81 mg Documented By: HOLLI Baclofen (Baclofen 10 Mg Tablet) 15 mg PO TID [facility] Last Admin: 04/17/24 08:39 Dose: 15 mg Documented By: HOLLI Cyanocobalamin (Cyanocobalamin (Vitamin B-12) 1,000 Mcg Tablet) 500 mcg PO DAILY [facility] Last Admin: 04/17/24 08:38 Dose: 500 mcg Documented By: HOLLI Duloxetine HCl (Duloxetine Hcl 60 Mg Capsule.Dr) 60 mg PO BID [facility] Last Admin: 04/17/24 08:39 Dose: 60 mg Documented By: HOLLI Enoxaparin Sodium (Enoxaparin Sodium 40 Mg/0.4 Ml Syringe) 40 mg SUBCUT Q24H [facility] Last Admin: 04/17/24 08:37 Dose: 40 mg Documented By: HOLLI Fluticasone/Umeclidinium/Vilanterol (Fluticasone/Umeclidinium/Vilanterol 200/62.5/25 Blst.W.Dev) 1 puff INHALE DAILY [facility] Last Admin: 04/17/24 08:12 Dose: 1 puff Documented By: MURRAY Folic Acid (Folic Acid 1 Mg Tablet) 1 mg PO DAILY [facility] Last Admin: 04/17/24 08:38 Dose: 1 mg Documented By: HOLLI Furosemide (Furosemide 20 Mg Tablet) 20 mg PO DAILY [facility]; Protocol Last Admin: 04/17/24 08:37 Dose: 20 mg Documented By: HOLLI Gabapentin (Gabapentin 400 Mg Capsule) 1,200 mg PO TID [facility] Last Admin: 04/17/24 08:37 Dose: 1,200 mg Documented By: HOLLI Guaifenesin (Guaifenesin 200 Mg/10 Ml 10 Ml Liquid) 10 ml PO Q6H PRN PRN Reason: Congestion Azithromycin 500 mg/ Sodium (Chloride) 250 mls @ 125 mls/hr IV Q24H [facility] Last Infusion: 04/17/24 00:51 Dose: Infused Documented By: JACKELINE Lorazepam (Lorazepam 1 Mg Tablet) 1 mg PO DAILY PRN PRN Reason: Anxiety Last Admin: 04/16/24 23:12 Dose: 1 mg Documented By: ANTONIO Methylprednisolone Sodium Succinate (Methylprednisolone Sod Succ 40 Mg/Ml Vial) 40 mg IV Q12H [facility] Last Admin: 04/17/24 08:37 Dose: 40 mg Documented By: HOLLI Nicotine Polacrilex (Nicotine Polacrilex Lozenge 4 Mg Lozenge) 4 mg BUCCAL Q4H PRN PRN Reason: nicotine cravings Last Admin: 04/16/24 00:07 Dose: 4 mg Documented By: MEAGHAN Oxcarbazepine (Oxcarbazepine 300 Mg Tablet) 600 mg PO BID [facility] Last Admin: 04/17/24 08:37 Dose: 600 mg Documented By: HOLLI Prazosin HCl (Prazosin Hcl 1 Mg Capsule) 2 mg PO BEDTIME [facility]; Protocol Last Admin: 04/16/24 22:47 Dose: 2 mg Documented By: ANTONIO Sodium Chloride (0.9 % Sodium Chloride Flush 3 Ml Syringe) 3 ml IVFLUSH QSHIFT [facility] Last Admin: 04/17/24 08:36 Dose: 3 ml Documented By: HOLLI Verapamil HCl (Verapamil Hcl 120 Mg Tablet) 120 mg PO BID [facility]; Protocol Last Admin: 04/17/24 08:38 Dose: 120 mg Documented By: HOLLI Labs 04/16/24 04:11 04/16/24 04:11 Labs: Laboratory Results - last 24 hr 04/16/24 04/17/24 04:11 06:08 Hold Purple Top SEE NOTE Total Bilirubin 0.1 Direct Bilirubin < 0.2 AST 25 ALT 69 H Alkaline Phosphatase 123 H Total Protein 6.3 L Albumin 3.9 IgG 421 L Microbiology Microbiology Results: Microbiology 04/15/24 20:39 Blood Culture - Preliminary Blood - Venous No growth after 24 hours. 04/15/24 20:41 Blood Culture - Preliminary Blood - Venous No growth after 24 hours. Assessment and Plan (1) Asthma: Status: Acute (2) Chronic lung disease: Status: Acute Plan 59 year old women admitted for respiratory failure Acute on chronic hypoxic respiratory failure due to COPD exacerbation and underlying JUANITO. initially required Bipap in ED (despite saying she cant use it due to trigeminal neuralgia) Continue supplemental oxygen to keep O2 sats > 88%. Continue empiric IV antibiotic therapy with azithromycin, bronchodilator therapy and IV steroids. Patient has been followed by Dr. Denys Henriquez, as an outpatient -workup for immunodeficiency as the patient has had multiple upper respiratory tract infections. baseline trelegy mild transaminitis Recent increase in Tegretol and also on statin hold statin for now no abdominal pain follow LFTs HLD hx CVA ASA, hold atorvastatin for elevated LFTs HTN verapamil trigeminal/occipital neuralgia baclofen, gabapentin, oxcarbazepine, duloxetine tobacco abuse NRT, but pt only tolerates mini lozenges mood disorder continue duloxetine + prazosin chronic leg edema requested to resume po lasix Obesity, class II. BMI 35.1 kg/m2. Discussed importance of weight management as this may be contributing to worsening of other comorbidities juanito CPAP VTE ppx enoxaparin Attending Dr. Mehta Full code Quality Stroke Does the patient have a stroke diagnosis?: No VTE Prior VTE?: No VTE Risk Level:: Medical - moderate - high VTE Device Contraindication: Treatment Not Indicated VTE Drug Contraindication: N/A - Med Ordered
[2024-04-17] MEDS: Azithromycin 500 MG in 0.9 % Sodium Chloride 250 ML 125 MG IV (21:18)
[2024-04-17] MEDS: guaiFENesin 200 MG/10 ML 10 ML LIQUID PO (21:25)
[2024-04-17] MEDS: Prazosin HCL 1 MG CAPSULE 2 MG PO (21:26)
[2024-04-17] MEDS: LORazepam 1 MG TABLET PO (21:31)
[2024-04-17] MEDS: Atorvastatin Calcium 80 MG TABLET PO (23:59)
[2024-04-18] VITALS: BP 138/66; PULSE 86; RESP 20; TEMP 36.4; O2SAT 94
[2024-04-18] MEDS: HYDROcodone Bit/Acetam 5/325 TABLET 1 TAB PO (05:26)
[2024-04-18] MEDS: Albuterol/Iprat 2.5/0.5MG 3 ML AMPUL.NEB INHALE (06:24)
[2024-04-18 06:29] VITALS: PULSE 77; RESP 20; O2SAT 94
[2024-04-18 07:50] VITALS: BP 160/81; PULSE 73; RESP 20; TEMP 36.2; O2SAT 95
[2024-04-18] MEDS: Fluticasone/Umeclidinium/Vilanterol 200/62.5/25 BLST.W.DEV 1 PUFF INHALE (08:21)
[2024-04-18 08:24] VITALS: PULSE 73; RESP 17; O2SAT 98
[2024-04-18] MEDS: Gabapentin 400 MG CAPSULE 1200 MG PO (08:48)
[2024-04-18] MEDS: DULoxetine HCl 60 MG CAPSULE.DR PO (08:48)
[2024-04-18] MEDS: VerapamiL HCL 120 MG TABLET PO (08:48)
[2024-04-18] MEDS: Aspirin Enteric Coated 81 MG TABLET.DR PO (08:49)
[2024-04-18] MEDS: Furosemide 20 MG TABLET PO (08:49)
[2024-04-18] MEDS: Baclofen 10 MG TABLET 15 MG PO (08:49)
[2024-04-18] MEDS: Folic Acid 1 MG TABLET PO (08:49)
[2024-04-18] MEDS: OXcarbazepine 300 MG TABLET 600 MG PO (08:49)
[2024-04-18] MEDS: 0.9 % Sodium Chloride Flush 3 ML SYRINGE IVFLUSH ×2 (08:50)
[2024-04-18] MEDS: methylPREDNISolone Sod Succ 40 MG/ML VIAL IV (08:50)
[2024-04-18] MEDS: Cyanocobalamin (Vitamin B-12) 1,000 MCG TABLET 500 MCG PO (08:50)
[2024-04-18] MEDS: Enoxaparin Sodium 40 MG/0.4 ML SYRINGE SUBCUT (08:52)
[2024-04-18 09:10] LABS: Alanine Aminotransferase 55 U/L (0-31); Albumin Level 3.9 g/dL (3.5-5.0); Alkaline Phosphatase 105 U/L (39-117); Aspartate Amino Transferase 16 U/L (5-31); Bilirubin Direct < 0.2 mg/dL (0.0-0.5); Bilirubin Total 0.1 mg/dL (0.0-1.0); Total Protein 6.4 g/dL (6.5-8.0)
--- NOTE | 2024-04-18 10:22 | PM.DS ---
DS: Providers Provider Date of Service: 04/18/24 Date of admission: 04/16/24 00:23 Primary care physician: Unknown Physician DS: Diagnosis Discharge Diagnosis (1) Acute and chronic respiratory failure: Status: Acute (2) Acute exacerbation of chronic obstructive airways disease: Status: Acute DS: Summary Hospital Course Hospital Course: History and physical as per admitting provider. Zulma Alves is a 59 years old woman with past medical history significant for chronic hypoxic respiratory failure due to COPD on home oxygen 3 L/min + nocturnal BiPAP, obesity, MVR, hyperlipidemia and hypertension presents to the emergency department complaining of worsening shortness on breath over the last couple of days associated with wheezing, chest tightness and cough. She tried bronchodilator therapy at home without significant improvement of symptoms. She denied any headache, palpitations, dizziness, fevers chills. She did not report any acute gastrointestinal or genitourinary symptoms. She denied recent tobacco smoking. She does eat marijuana but denies smoking it. Denied alcohol abuse or illicit drug use. Patient was recently hospitalized due to respiratory failure. She was recently discharged from rehab. She is a former smoker. In the ED, she was found to have marked tachypnea. There is no tachycardia or hypotension. She is currently on BiPAP (nocturnal). Blood workup showed no leukocytosis. There is no lactic acidosis. Hemoglobin and platelets are normal. There is no electrolyte imbalances. Creatinine is 1.18 and BUN 10. Transaminases are slightly elevated as well as alk phos. Bilirubin is normal. Troponin is 4.7 and BNP is 29. 59-year-old woman treated for acute on chronic hypoxic respiratory failure secondary to COPD exacerbation underlying obstructive sleep apnea. Due to patient's history of trigeminal neuralgia she is unable to tolerate the CPAP at home. Was using during this admission off and on. She continued her supplemental oxygen, was treated with azithromycin, bronchodilator and IV steroids. Plan is to send home with 2 more doses of azithromycin and short prednisone taper. She will continue all of her home inhalers. 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 mild transaminitis. Tegretol was recently increased, transaminitis is trending down. Patient can follow up with the primary care provider hx CVA ASA, statin HTN verapamil trigeminal/occipital neuralgia baclofen, gabapentin, oxcarbazepine, duloxetine tobacco abuse NRT, but pt only tolerates mini lozenges mood disorder continue duloxetine + prazosin chronic leg edema. Continue Lasix Obesity, class II. . BMI 35.1. Discussed importance of weight management as this may be contributing to worsening of other comorbidities dao. Does not tolerate CPAP Time Attestation Discharge Coordination Time (in mins): 40 Quality: Safe Use of Opioids Does Pt have an Active Cancer Diagnosis on the Problem List?: No Quality: Stroke Does the patient have a stroke diagnosis?: No Physical Exam Vital Signs: Vital Signs: Last Vital Signs Temp 97.2 F 04/18/24 07:50 Pulse 73 04/18/24 08:24 Resp 17 04/18/24 08:24 BP 160/81 H 04/18/24 07:50 Pulse Ox 95 04/18/24 07:50 O2 Del Method Nasal Cannula 04/18/24 07:50 O2 Flow Rate 2 04/18/24 07:50 Oxygen Flow Rate 10 04/15/24 20:24 BMI result Body Mass Index 35.1 Appearing in no acute distress head is normocephalic atraumatic eyes pupils are PERRLA sclera is anicteric mouth throat mucous membranes are intact and moist neck is supple no lymphadenopathy, no JVD noted lung sounds are clear to auscultation heart regular rate rhythm, clear S1, S2 positive bowel sounds, abdomen is soft, nontender neuro patient is alert x3, no focal deficits DS: Data Data Completed and Pending Completed studies during hospitalization [Text1]: Procedures Assistance with Respiratory Ventilation, Less than 24 Consecutive Hours, Continuous Positive Airway Pressure (12/10/23) Labs on day of discharge: Laboratory Results - last 24 hr 04/16/24 04/18/24 04:11 08:38 Total Bilirubin 0.1 Direct Bilirubin < 0.2 AST 16 ALT 55 H Alkaline Phosphatase 105 Total Protein 6.4 L Albumin 3.9 IgG 421 L Preliminary micro results at discharge 04/15/24 20:39 Blood Culture - Preliminary Blood - Venous No growth after 48 hours. 04/15/24 20:41 Blood Culture - Preliminary Blood - Venous No growth after 48 hours. Discharge Plan Discharge Anticipated Discharge Date/Time: 04/18/24 10:18 Patient Disposition: Home Health Service Discharge Diagnosis: Acute on chronic respiratory failure Discharge Medications: New azithromycin 500 mg tablet 500 mg PO DAILY 2 Days Qty: 2 0RF Rx Instructions: start on day 2 of therapy prednisone 10 mg tablet See Taper PO DIRECTED Qty: 20 0RF Taper: Prednisone 40 mg daily for 2 Days and 0 Hour 30 mg daily for 2 Days and 0 Hour 20 mg daily for 2 Days and 0 Hour 10 mg daily for 2 Days and 0 Hour Rx Instructions: see taper instructions Continued ipratropium-albuterol 0.5 mg-3 mg(2.5 mg base)/3 mL solution for nebulization 3 ml inhalation Q4H PRN (Reason: for dyspnea) Qty: 180 11RF verapamil 120 mg tablet 120 mg PO BID Qty: 60 1RF baclofen 15 mg Tablet 15 mg PO TID MDD 45 lidocaine 4 % Cream 1 appl TOPICAL DAILY PRN (Reason: Pain) vitamin [id number] acid 0.5-1 mg Tablet 1 tab PO DAILY Trelegy Ellipta 200-62.5-25 mcg Blister With Device 1 inh INHALATION DAILY atorvastatin 80 mg tablet 80 mg PO BEDTIME hydrocodone-acetaminophen 5-325 mg tablet 1 tab PO BID PRN (Reason: Pain) cekxhkcull-iaegwpkxyuqfu-uuwl 50-325-40 mg tablet 1 tab PO DAILY MRX1 PRN (Reason: Headache) hyoscyamine sulfate 0.125 mg tablet 0.25 mg PO Q6H PRN (Reason: Abdominal Discomfort) gabapentin 300 mg capsule 1,200 mg PO TID oxcarbazepine 600 mg tablet 600 mg PO BID lorazepam 1 mg tablet 1 mg PO DAILY PRN (Reason: Anxiety) duloxetine 60 mg capsule,delayed release(DR/EC) 60 mg PO BID aspirin 81 mg Tablet,Delayed Release (Dr/Ec) 81 mg PO DAILY Qty: 90 0RF (DME) nebulizer and compressor Device See Rx Instructions .Route Qty: 1 0RF Rx Instructions: As directed albuterol sulfate 90 mcg/actuation HFA aerosol inhaler 2 puff inhalation Q4H PRN (Reason: Shortness Of Breath Or Wheezing) guaifenesin 100 mg/5 mL liquid 200 mg PO Q6H PRN (Reason: Congestion) nicotine (polacrilex) [Nicorette] 4 mg mini lozenge 4 mg buccal Q4-8H PRN (Reason: nicotine cravings) Qty: 81 0RF prazosin 2 mg capsule 2 mg PO BEDTIME (DME) Oxygen Home Use Kit See Rx Instructions .Route Rx Instructions: As directed Discharge Orders: Discharge Order (Routine); Ordered 04/18/24 Ordered By: Giulia Henriquez Diet: Advance to usual diet Activity on Discharge: As tolerated Stand Alone Forms: Patient Portal Discharge page Print Language: Macedonian Care Plan Goals: Continue oxygen therapy Health Concerns: Acute on chronic respiratory failure Plan of Treatment: Follow-up with primary care provider as needed Take all medications as prescribed Assessment: See discharge summary
--- NOTE | 2024-04-18 10:49 | MHC.CM.PN ---
Pt has been medically cleared for DC, she will go home via private transport and resume home care services from [facility].
== END 2024-04-18 11:33 | disposition home health service (06) | DRG 140 ==
LOC: HO.ED 04-16 01:08 → HO.EDOVER 04-16 01:54 → HO.IMC 04-16 08:08
PROVIDERS: Physician Assistant Medical; Admitting Provider Internal Medicine; Emergency Provider Emergency Medicine; Visit Provider Nurse Practitioner Acute Care
DX: J44.1 Chronic obstructive pulmonary disease with (acute) exacerbation (principal); J96.21 Acute and chronic respiratory failure with hypoxia; I50.32 Chronic diastolic (congestive) heart failure; I11.0 Hypertensive heart disease with heart failure; Z99.81 Dependence on supplemental oxygen; G47.33 Obstructive sleep apnea (adult) (pediatric); E78.5 Hyperlipidemia, unspecified; M54.81 Occipital neuralgia; Z68.35 Body mass index [BMI] 35.0-35.9, adult; G50.0 Trigeminal neuralgia; F39 Unspecified mood [affective] disorder; Z86.73 Personal history of transient ischemic attack (TIA), and cerebral infarction without residual deficits; E66.812 Obesity, class 2; Z71.3 Dietary counseling and surveillance; Z20.822 Contact with and (suspected) exposure to COVID-19; Z87.891 Personal history of nicotine dependence; Z79.82 Long term (current) use of aspirin; Z79.899 Other long term (current) drug therapy
CPT/HCPCS: 0241U; 36415; 71045; 80048; 80053; 80076; 82140; 82784; 82803; 83605; 83735; 83880; 84484; 85025; 87040; 94640; 99285; J0456; J0696; J1650; J2543; J2919; J3475

== ENCOUNTER → 2024-04-16 00:23 | Outpatient (BNV) | payer BC, SELFPAY | PROVIDERS: Admitting Provider Internal Medicine; Emergency Provider Emergency Medicine; Visit Provider Internal Medicine | DX: J96.21 Acute and chronic respiratory failure with hypoxia (principal); J44.1 Chronic obstructive pulmonary disease with (acute) exacerbation | CPT/HCPCS: 99223; 99232; 99239; 99499 ==

== ENCOUNTER 2024-04-21 13:45 | Outpatient (REF) | payer BC, SELFPAY | END 2024-04-21 13:46 | disposition home or self-care (01) | LOC: HO.CT 13:45 | PROVIDERS: PCP Registered Nurse; Visit Provider Hospitalist | DX: D80.1 Nonfamilial hypogammaglobulinemia (principal) | CPT/HCPCS: 71250 ==

== ENCOUNTER → 2024-04-21 13:47 | Outpatient (BNV) | payer BC, SELFPAY | PROVIDERS: PCP Registered Nurse; Visit Provider Radiology Diagnostic Radiology | DX: R91.1 Solitary pulmonary nodule (principal) | CPT/HCPCS: 71250 ==

== ENCOUNTER 2024-05-01 04:02 | Inpatient (IN) | payer BC, MEDICARE, SELFPAY ==
[2024-05-01] VITALS (30 sets, daily range): BP systolic 101–228; BP diastolic 52–142; PULSE 80–146; RESP 17–38; TEMP 36.1–36.6; O2SAT 60–99; BMI 40.5; BMI 37.7
--- NOTE | ~2024-05-01 | CT_ITS ---
EXAMINATION: CT CHEST WITHOUT CONTRAST CLINICAL INFORMATION: Rule out pneumonia COMPARISON: Chest radiograph 05/01/2024. Preliminary review CT chest 04/21/2024, CT chest 03/04/2023 TECHNIQUE: Multidetector volumetric CT imaging of the chest was done. Axial MIP volume rendering provided. Sagittal and coronal reformatted images were obtained. This CT examination was performed using dose optimization techniques as appropriate, variously including the following: *Automated exposure control *Adjustment of mA and/or kV according to patient size (this includes techniques or standardized protocols for targeted exams where dose is matched to indication/reason for exam; i.e. extremities or head) *Use of iterative reconstruction technique DLP: 344 mGy-cm FINDINGS: Lungs and pleura: No focal pulmonary consolidation or suspicious pulmonary groundglass opacities are noted. Images are mildly suboptimal secondary to motion artifact. Central peribronchial wall thickening is present. Several scattered subpleural reticular and nodular opacities are present with the largest discrete nodular opacities measuring 3 mm in diameter. According to the UPDATED 2017 Fleischner Society recommendations, the advised follow-up imaging for solid nodules <6 mm in the middle/lower lobes is no routine follow up. No endobronchial lesions noted. No endobronchial mucous plugging identified. Mediastinum: No lymphadenopathy. Normal caliber of the thoracic aorta. Mild aortic calcific atherosclerosis. Mild scattered coronary artery calcific atherosclerosis. Normal heart size. No pericardial thickening or pericardial fluid collections. Normal appearance of the thyroid. CHEST WALL: No axillary lymphadenopathy. The thoracic wall inflammatory changes. Visualized abdominal structures: Normal appearance of the adrenal glands. Skeletal structures: No suspicious skeletal lesions noted. Mild-moderate multilevel anterior endplate osteophytosis of the thoracic spine. Single midthoracic vertebral body densely sclerotic focus which is benign in appearance and may represent an incidental enostosis. CT/CT chest wo IV con IMPRESSION: Unenhanced CT of the chest: *No definitive acute pulmonary abnormalities noted. No pulmonary consolidation. Mild central peribronchial wall thickening which could correlate with bronchitis or could represent the chronic sequela of asthma. The degree of central peribronchial wall thickening is diminished compared with contemporaneous review of the CT of the chest 04/21/2024. No endobronchial lesions. *Mild scattered coronary artery calcific atherosclerosis. Electronically signed by: Jeb Colorado MD 05/01/2024 06:13 AM EST
--- NOTE | ~2024-05-01 | XR_ITS ---
EXAMINATION: XR CHEST CLINICAL INFORMATION: Shortness of breath COMPARISON: Preliminary review CT chest 04/21/2024 TECHNIQUE: Frontal view of the chest was obtained. FINDINGS: Normal appearance of the cardiomediastinal structures. Mild diffuse vascular indistinctness is noted. No focal pulmonary consolidation identified. No peribronchial wall thickening visualized. No effusions or pneumothoraces. XR/XR chest 1V IMPRESSION: *Diffuse pulmonary vascular indistinctness. Findings are suspicious for pulmonary vascular congestion. No focal pulmonary consolidation identified. Electronically signed by: Jeb Colorado MD 05/01/2024 04:21 AM THADDEUS SANCHEZ
--- NOTE | 2024-05-01 04:07 | ECG_ITS ---
Test Reason : DYSPNEA Blood Pressure : / mmHG Vent. Rate : 144 BPM Atrial Rate : 144 BPM P-R Int : 100 ms QRS Dur : 120 ms QT Int : 366 ms P-R-T Axes : -08 062 096 degrees QTc Int : 566 ms Poor data quality Undetermined rhythm Possible Sinus tachycardia with short SD with occasional Premature ventricular complexes Incomplete left bundle branch block Marked ST abnormality, possible inferolateral subendocardial injury Abnormal ECG When compared with ECG of 24-MAR-2024 10:56, Premature ventricular complexes are now Present SD interval has decreased Vent. rate has increased BY 70 BPM Incomplete left bundle branch block is now Present Referred By: Juli Aleman Electronically Signed By:HARRIET ANDRES MD
[2024-05-01] MEDS: Furosemide 100 MG/10 ML VIAL 80 MG IVPUSH (04:10)
[2024-05-01] MEDS: Nitroglycerin 2 % Oint 1 GM Packet 1 INCH TRANSDERMA (04:10)
[2024-05-01] MEDS: Magnesium Sulfate/H2O 2 GM/50 ML PIGGYBACK IV (04:18)
[2024-05-01] MEDS: methylPREDNISolone Sod Succ 125 MG/2 ML VIAL IVPUSH (04:18)
[2024-05-01 04:23] LABS: Basophils Absolute Auto 0.1 X10*3/uL (0.0-0.2); Basophils Percent Auto 0.5 % (0-2); Eosinophils Absolute Auto 0.4 X10*3/uL (0.0-0.4); Eosinophils Percent Auto 3.1 % (0-4); Hematocrit 44.6 % (37.0-47.0); Hemoglobin 13.8 g/dl (12.0-16.0); Imm Gran Pct Auto 1.5 % (0.0-0.4); Lymphocytes Absolute Auto 4.4 X10*3/uL (1.2-4.9); Lymphocytes Percent Auto 32.2 % (20-40); MANUAL DIFF FLAG NO; Mean Corpuscular HGB Conc 30.9 g/dl (31.0-35.0); Mean Corpuscular Hemoglobin 32.2 pg (27.0-33.0); Mean Platelet Volume 9.4 fL (9.4-12.3); Monocytes Absolute Auto 1.5 X10*3/uL (0.1-1.2); Monocytes Percent Auto 10.5 % (2-11); Neutrophils Absolute Auto 7.2 x10*3/uL (2.0-8.3); Neutrophils Percent Auto 52.2 % (45-73); Platelet Count 390 X10*3/uL (160-400); Red Blood Count 4.29 X10*6/uL (4.20-5.50); Red Cell Distribution Width 13.2 % (11.0-16.0); White Blood Count 13.8 X10*3/uL (4.8-10.8)
[2024-05-01 04:23] LABS: Venous Blood Gas Refer to POC result
[2024-05-01] MEDS: Albuterol Sulfate 5 MG, Albuterol Sulfate (0.083%) 2.5 MG 7.5 MG INHALE (04:28)
[2024-05-01 04:29] LABS: INTERNATIONAL NORM RATIO 0.9 (0.9-1.1); Prothrombin Time 10.4 SEC (10.9-12.4)
[2024-05-01 04:29] LABS: VBG Base Excess -12.5 mmol/L; VBG HCO3 21 mmol/L (22-26); VBG pCO2 90 mmHg; VBG pH 6.97 (7.32-7.43); VBG pO2 218 mmHg
[2024-05-01] MEDS: Piperacillin Sodium/Tazobactam 4.5 GM in 0.9 % Sodium Chloride 100 ML IV (04:32)
--- NOTE | 2024-05-01 04:37 | PC.NURSE ---
Pt arrived on EMS stretcher, acutely dyspneic, tripoding, diaphoretic. Per EMS, pt found by aliyah ernst (pt sleeps down stiars in home) in simliar presentation, on home O2 2-4 L. Pt transfered to hospital stretcher, placed on BiPAP, IV's established, MD/respiratory at bedside, medications orderd and given per AUG.
--- NOTE | 2024-05-01 04:39 | ED.SOB ---
HPI - SOB/Dyspnea General Chief Complaint: Dyspnea Stated Complaint: SOB Time Seen by Provider: 05/01/24 04:29 Source: EMS Mode of arrival: EMS Limitations: other History of Present Illness ED Provider: Dr. Juli Aleman HPI Narrative: patient comes to the emergency room complaining via ambulance. According to EMS, patient's has been called 911 because the patient was having difficulty breathing. According to the patient's , the patient sleeps in the 1st floor, he sleeps on the 2nd floor, he could hear that the patient was struggling, trying to get his attention. Patient's noted that she was significantly short of breath. Called 9 1 1. When EMS arrived, patient was using her home oxygen 2-4 L, saturation 60%. Patient was given an albuterol treatment, put an CPAP and brought to the emergency room. Patient is in significant respiratory distress, can not give any information. Related Data Home Medications ?Medication ?Instructions ?Recorded ?Confirmed atorvastatin 80 mg tablet 80 mg PO BEDTIME 03/04/23 04/16/24 [id number]-[id number]-negakuxl 1 tab PO DAILY MRX1 PRN Headache 03/04/23 04/16/24 50 mg-325 mg-40 mg tablet duloxetine 60 mg capsule,delayed 60 mg PO BID 03/04/23 04/16/24 release gabapentin 300 mg capsule 1,200 mg PO TID 03/04/23 04/16/24 hydrocodone 5 mg-acetaminophen 325 1 tab PO BID PRN Pain 03/04/23 04/16/24 mg tablet hyoscyamine sulfate 0.125 mg tablet 0.25 mg PO Q6H PRN Abdominal 03/04/23 04/16/24 Discomfort lorazepam 1 mg tablet 1 mg PO DAILY PRN Anxiety 03/04/23 04/16/24 oxcarbazepine 600 mg tablet 600 mg PO BID 03/04/23 04/16/24 Oxygen Home Use 04/16/23 03/10/24 prazosin 2 mg capsule 2 mg PO BEDTIME 04/16/23 04/16/24 baclofen 15 mg tablet 15 mg PO TID 01/10/24 04/16/24 lidocaine 4 % topical cream 1 appl topical DAILY PRN Pain 01/17/24 04/16/24 vitamin B12 0.5 mg-folic acid 1 mg 1 tab PO DAILY 01/18/24 04/16/24 tablet albuterol sulfate 90 mcg/actuation 2 puff inhalation Q4H PRN 01/31/24 04/16/24 aerosol inhaler Shortness Of Breath Or Wheezing fluticasone fur. 200 mcg-umeclid 1 inh inhalation DAILY 02/14/24 04/16/24 62.5 mcg-vilant 25 mcg inhalat.powder (Trelegy Ellipta) guaifenesin 100 mg/5 mL oral liquid 200 mg PO Q6H PRN Congestion 03/24/24 04/16/24 Previous Rx's ?Medication ?Instructions ?Recorded aspirin 81 mg tablet,delayed 81 mg PO DAILY #90 tabs 12/16/23 release nebulizer and compressor #1 ea 12/16/23 ipratropium 0.5 mg-albuterol 3 mg 3 ml inhalation Q4H PRN for 03/02/24 (2.5 mg base)/3 mL nebulization dyspnea #180 mL soln verapamil 120 mg tablet 120 mg PO BID #60 tabs 03/28/24 azithromycin 500 mg tablet 500 mg PO DAILY 2 days #2 tabs 04/18/24 prednisone 10 mg tablet See Taper PO DIRECTED #20 tabs 04/18/24 nicotine (polacrilex) 4 mg buccal 4 mg buccal Q4-8H PRN nicotine 04/26/24 mini lozenge (Nicorette) cravings #81 ea Allergies Allergy/AdvReac Type Severity Reaction Status Date / Time Iodinated Contrast Media Allergy Intermediate HIVES Verified 05/01/24 04:24 [IV CONTRAST] latex [LATEX] Allergy Unknown RASH Verified 05/01/24 04:24 morphine [MORPHINE] AdvReac Unknown VOMITING Verified 05/01/24 04:24 Review of Systems Review of Systems: Yes Unobtainable due to mental condition [facility] Past Medical History Medical History Chronic lung disease Hypogammaglobulinemia Smoker JUANITO (obstructive sleep apnea) Allergies Hypertension Elevated troponin COPD (chronic obstructive pulmonary disease) Chronic hypercapnic respiratory failure Trigeminal neuralgia Pulmonary nodules Mixed hyperlipidemia Peripheral neuropathy Tobacco use disorder Mood disorder Surgical History History of esophagogastroduodenoscopy (EGD) History of colonoscopy History of lumbar discectomy History of tubal ligation History of excision of mass History of shoulder surgery Social History Social History Household Members: Spouse Housing: House Do you presently have visiting nurse or other home services: Yes Alcohol intake: former Comment: refusing bed alarm Patient Tobacco Use Status: Former Tobacco user Tobacco use type: Cigarette Cigarette Packs Per Day: 4 Cigarettes Per Day: 80.0 Years Smoked: 40 Smoked in Last 30 Days: No e-Cigarette/Vaping Use: Former Use Second Hand Smoke Exposure: No Use of substances other than those prescribed or required for medical reasons: No Substance Use Type: Marijuana Advance Directives: Yes Advance Directives on File: Yes Advance Directives Date on File: 03/09/23 Do you have a plan to hurt others: No Plan Patient : No service: No Physical Exam Vital Signs: Vital Signs: Last Vital Signs Temp 97.9 F 05/01/24 06:00 Pulse 111 H 05/01/24 06:00 Resp 30 H 05/01/24 06:00 BP 128/79 05/01/24 06:00 Pulse Ox 97 05/01/24 06:00 O2 Del Method BiPAP 05/01/24 06:00 FiO2 30 05/01/24 06:00 BMI result Body Mass Index 40.5 Const: Other: Appearance: Alert. Opens her eyes to voice. Eyes: Pupils equal, round and reactive to light. ENT: Pharynx normal. Neck: Normal inspection. Neck supple. No lymph nodes noted. No crepitus CVS: Normal heart rate and rhythm. Pulses normal. Normal S1 and S2 Respiratory: Insert significant respiratory distress, tachypneic in the 30s to 40s, oxygen saturation in the high 80s low 90s on CPAP. Abdomen: Soft and nontender. No rigidity. No distention. Skin: Skin warm and dry. Normal skin color. Normal skin turgor. Extremities: Plus one pitting edema bilaterally No Lacerations. No Rash Neuro: Oriented X 3. No motor deficit. No sensory deficit. Moving all extremities. No slurred speech. CN 2 through 12 grossly intact Psych: calm, cooperative, normal affect Course Course Course Narrative: on arrival, patient was switched to BiPAP. Patient's oxygen saturation improved to 92-93%. Discussed with our respiratory therapist go is to keep the oxygen saturation between 88 and 92. - Patient's blood pressure initially 230 systolic. Patient was given 80 mg of IV Lasix and nitro paste, patient had significantly decreased breath sounds. Heart rate, she had minimal crackles, questionable CHF secondary to significant hypertension/pulmonary edema - Patient was discharged from the hospital 2 weeks ago, was seen here for acute on chronic respiratory failure and COPD exacerbation. patient also received magnesium, Solu-Medrol IV and nebulization treatments through the BiPAP Medications Administered Generic Name Dose Route Start Last Admin Trade Name Freq PRN Reason Stop Dose Admin Vancomycin HCl 2,000 mg in 500 mls @ 250 mls/hr 05/01/24 04:20 05/01/24 04:57 Vancomycin/Ns IV 05/01/24 06:19 250 mls/hr ONCE ONE Administration Sodium Chloride 2,000 mls @ 999 mls/hr 05/01/24 04:44 05/01/24 04:57 Ns IVCONT 05/01/24 06:44 999 mls/hr .Q2H1M ONE Administration Discontinued Medications Generic Name Dose Route Start Last Admin Trade Name Freq PRN Reason Stop Dose Admin Albuterol Sulfate 5 mg/ 7.5 mg 05/01/24 04:23 05/01/24 04:28 Albuterol Sulfate 2.5 mg INHALE 05/01/24 04:24 7.5 mg ONCE ONE Administration Albuterol Sulfate 5 mg/ 0 mg 05/01/24 04:54 05/01/24 04:57 Albuterol/Ipratropium 3 ml INHALE 05/01/24 04:55 1 each ONCE ONE Administration Furosemide 80 mg 05/01/24 04:08 05/01/24 04:10 Furosemide 100 Mg/10 Ml Vial IVPUSH 05/01/24 04:09 80 mg ONCE ONE Administration Protocol Magnesium Sulfate 2 gm in 50 mls @ 25 mls/hr 05/01/24 04:12 05/01/24 04:18 Magnesium Sulfate/H2o IV 05/01/24 06:11 25 mls/hr ONCE ONE Administration Piperacillin Sod/Tazobactam 100 mls @ 200 mls/hr 05/01/24 04:20 05/01/24 04:57 Sod 4.5 gm/ Sodium Chloride IV 05/01/24 04:49 Infused ONCE ONE Infusion Methylprednisolone Sodium Succinate 125 mg 05/01/24 04:12 05/01/24 04:18 Methylprednisolone Sod Succ 125 Mg/2 Ml Vial IVPUSH 05/01/24 04:13 125 mg ONCE ONE Administration Nitroglycerin 1 inch 05/01/24 04:08 05/01/24 04:10 Nitroglycerin 2 % Oint 1 Gm Packet TRANSDERMA 05/01/24 04:09 1 inch ONCE ONE Administration Medical Decision Making Medical Decision Making [facility] Narrative: - At 04:52, sepsis is suspected. - Patient has fluids running based on ideal weight of 55 kg. Patient is obese. Also, patient received antibiotics. - Patient was discharged approximately 2 weeks ago for COPD exacerbation and hypercapnic respiratory failure, this time patient was covered with vancomycin and Zosyn. Patient is on BiPAP - my interpretation of labs: White blood cell count 13.8, rest of hematology at baseline. Blood gases ABG shows a pH of 7.15, pCO2 of 70, bicarb of 25. Patient is on BiPAP, becoming more responsive, awake, able to keep her eyes open and answer questions appropriately. Patient's seems to be improving. Chemistry at baseline, no significant electrolyte abnormalities. Lactic acid is 5.8. patient's magnesium 2.8, she received magnesium on arrival. Serology negative for COVID and influenza - patient's BNP is not significantly elevated. I reviewed patient's past medical records. Patient had an echocardiogram done 4 months ago, showed normal left ventricular cavity size, normal wall thickness, ejection fracture greater than 70% focus exam completed at 06:00 arterial blood gases Were repeated and improved. Patient is much more awake, alert, answering questions appropriately. Patient states that she is feeling much better and breathing more comfortable. Patient remains on BiPAP I discussed the patient with Dr Chan from the ICU, patient being admitted Differential Diagnosis Differential Diagnoses: The differential diagnosis associated with the presentation includes ( flash pulmonary edema, CHF, COPD, hypercapnic respiratory failure, pneumonia) Admission/Observation Consideration of admission/observation: Escalation of care including admission/observation considered Consult Healthcare Provider Management of the patient was discussed with: Financing Analyst Lab Data [facility] Lab Attestation statement: I reviewed the patient's lab results. 05/01/24 04:17 05/01/24 04:17 Labs: Lab Results 05/01/24 05/01/24 05/01/24 Range/Units 04:16 04:17 04:23 WBC 13.8 H (4.8-10.8) X10*3/uL RBC 4.29 (4.20-5.50) X10*6/uL Hgb 13.8 (12.0-16.0) g/dl Hct 44.6 (37.0-47.0) % MCV 104.0 H (80.0-98.0) fL MCH 32.2 (27.0-33.0) pg MCHC 30.9 L (31.0-35.0) g/dl RDW 13.2 (11.0-16.0) % Plt Count 390 D (160-400) X10*3/uL MPV 9.4 (9.4-12.3) fL Immature Gran % (Auto) 1.5 H (0.0-0.4) % Neut % (Auto) 52.2 (45-73) % Lymph % (Auto) 32.2 (20-40) % Early % (Auto) 10.5 (2-11) % Eos % (Auto) 3.1 (0-4) % Baso % (Auto) 0.5 (0-2) % Lymph # (Auto) 4.4 (1.2-4.9) X10*3/uL Early # (Auto) 1.5 H (0.1-1.2) X10*3/uL Eos # (Auto) 0.4 (0.0-0.4) X10*3/uL Baso # (Auto) 0.1 (0.0-0.2) X10*3/uL Abs Immat Gran (auto) 0.20 H (0.00-0.03) X10*3/uL Absolute Neuts (auto) 7.2 (2.0-8.3) x10*3/uL Absolute Nucleated RBC 0.000 (0.0-0.012) X10*3/uL Nucleated RBC % (auto) 0.0 (0.0-0.2) /100WBC PT 10.4 L (10.9-12.4) SEC INR 0.9 (0.9-1.1) O2 Saturation % ABG pH at Pt Temp (7.35-7.45) ABG pCO2 at Pt Temp (32-45) mmHg ABG pO2 at Pt Temp (83-108) mmHg ABG HCO3 (22-26) mmol/L ABG Base Excess (Actual) mmol/L VBG pH 6.97 L* (7.32-7.43) VBG pCO2 90 mmHg VBG pO2 218 mmHg VBG HCO3 21 L (22-26) mmol/L VBG O2 Saturation 99.0 % VBG Base Excess -12.5 mmol/L Sodium 143 (135-145) mmol/L Potassium 4.9 (3.3-5.1) mmol/L Chloride 110 H (96-108) mmol/L Carbon Dioxide 21 L (22-29) mmol/L Anion Gap 17 (12-20) BUN 16 (9-16) mg/dL Creatinine 0.99 (0.5-1.4) mg/dL Estim Creat Clear Calc 61.1 Estimated GFR 57 Random Glucose 266 H (60-115) mg/dL Lactic Acid 5.8 H* (0.5-2.0) mmol/L Calcium 9.3 (8.4-10.2) mg/dL Magnesium 2.8 H (1.6-2.6) mg/dL Total Bilirubin 0.2 (0.0-1.0) mg/dL Direct Bilirubin < 0.2 (0.0-0.5) mg/dL AST 52 H (5-31) U/L ALT 74 H (0-31) U/L Alkaline Phosphatase 178 H (39-117) U/L Troponin I High Sens 10.7 D (<3.5-17.0) ng/L B-Natriuretic Peptide 112 H (<100) pg/mL Total Protein 7.0 (6.5-8.0) g/dL Albumin 4.3 (3.5-5.0) g/dL TSH 8.78 H (0.32-4.0) uIU/mL Free T4 0.62 L (0.71-1.85) ng/dL Urine Color Urine Appearance Urine pH (5.0-9.0) Ur Specific [place] (1.005-1.025) Urine Protein (Neg-Trace) mg/dL Urine Glucose (UA) (Negative) mg/dL Urine Ketones (Negative) mg/dL Urine Blood (Negative) Urine Nitrite (Negative) Ur Leukocyte Esterase (Negative) Urine RBC (0-2) /HPF Urine WBC (0-5) /HPF Ur Squamous Epith Cells (0-2) /HPF Urine Bacteria (None Seen) Hyaline Casts (0-2) /LPF Urine Opiates Screen (Not Detect) Ur Buprenorphine Scrn (Not Detect) ng/mL Ur Oxycodone Screen (Not Detect) ng/mL Urine Methadone Screen (Not Detect) ng/mL Urine Fentanyl Screen (Not Detect) Ur Barbiturates Screen (Not Detect) Ur Phencyclidine Scrn (Not Detect) Ur Amphetamines Screen (Not Detect) U Benzodiazepines Scrn (Not Detect) Urine Cocaine Screen (Not Detect) U Marijuana (THC) Screen (Not Detect) Ethyl Alcohol < 10 mg/dL COVID-19 (SONAL) Negative (Negative) COVID-19 Clin Com See Note Influenza Type A (DERREK) Negative (Negative) Influenza Type B (DERREK) Negative (Negative) Influenza A & B Note See Note 05/01/24 05/01/24 05/01/24 Range/Units 04:45 05:36 05:56 WBC (4.8-10.8) X10*3/uL RBC (4.20-5.50) X10*6/uL Hgb (12.0-16.0) g/dl Hct (37.0-47.0) % MCV (80.0-98.0) fL MCH (27.0-33.0) pg MCHC (31.0-35.0) g/dl RDW (11.0-16.0) % Plt Count (160-400) X10*3/uL MPV (9.4-12.3) fL Immature Gran % (Auto) (0.0-0.4) % Neut % (Auto) (45-73) % Lymph % (Auto) (20-40) % Early % (Auto) (2-11) % Eos % (Auto) (0-4) % Baso % (Auto) (0-2) % Lymph # (Auto) (1.2-4.9) X10*3/uL Early # (Auto) (0.1-1.2) X10*3/uL Eos # (Auto) (0.0-0.4) X10*3/uL Baso # (Auto) (0.0-0.2) X10*3/uL Abs Immat Gran (auto) (0.00-0.03) X10*3/uL Absolute Neuts (auto) (2.0-8.3) x10*3/uL Absolute Nucleated RBC (0.0-0.012) X10*3/uL Nucleated RBC % (auto) (0.0-0.2) /100WBC PT (10.9-12.4) SEC INR (0.9-1.1) O2 Saturation 95.0 97.0 % ABG pH at Pt Temp 7.15 L* 7.28 L (7.35-7.45) ABG pCO2 at Pt Temp 70 H* 51 H (32-45) mmHg ABG pO2 at Pt Temp 92 89 (83-108) mmHg ABG HCO3 25 24 (22-26) mmol/L ABG Base Excess (Actual) -4.9 -2.6 mmol/L VBG pH (7.32-7.43) VBG pCO2 mmHg VBG pO2 mmHg VBG HCO3 (22-26) mmol/L VBG O2 Saturation % VBG Base Excess mmol/L Sodium (135-145) mmol/L Potassium (3.3-5.1) mmol/L Chloride (96-108) mmol/L Carbon Dioxide (22-29) mmol/L Anion Gap (12-20) BUN (9-16) mg/dL Creatinine (0.5-1.4) mg/dL Estim Creat Clear Calc Estimated GFR Random Glucose (60-115) mg/dL Lactic Acid (0.5-2.0) mmol/L Calcium (8.4-10.2) mg/dL Magnesium (1.6-2.6) mg/dL Total Bilirubin (0.0-1.0) mg/dL Direct Bilirubin (0.0-0.5) mg/dL AST (5-31) U/L ALT (0-31) U/L Alkaline Phosphatase (39-117) U/L Troponin I High Sens (<3.5-17.0) ng/L B-Natriuretic Peptide (<100) pg/mL Total Protein (6.5-8.0) g/dL Albumin (3.5-5.0) g/dL TSH (0.32-4.0) uIU/mL Free T4 (0.71-1.85) ng/dL Urine Color Yellow Urine Appearance Clear Urine pH 5.5 (5.0-9.0) Ur Specific [place] <= 1.005 (1.005-1.025) Urine Protein Negative (Neg-Trace) mg/dL Urine Glucose (UA) Negative (Negative) mg/dL Urine Ketones Negative (Negative) mg/dL Urine Blood Negative (Negative) Urine Nitrite Negative (Negative) Ur Leukocyte Esterase Negative (Negative) Urine RBC 0-2 (0-2) /HPF Urine WBC 0-5 (0-5) /HPF Ur Squamous Epith Cells 0-2 (0-2) /HPF Urine Bacteria None Seen (None Seen) Hyaline Casts 0-2 (0-2) /LPF Urine Opiates Screen Not Detected (Not Detect) Ur Buprenorphine Scrn Not Detected (Not Detect) ng/mL Ur Oxycodone Screen Not Detected (Not Detect) ng/mL Urine Methadone Screen Not Detected (Not Detect) ng/mL Urine Fentanyl Screen Not Detected (Not Detect) Ur Barbiturates Screen Not Detected (Not Detect) Ur Phencyclidine Scrn Not Detected (Not Detect) Ur Amphetamines Screen Not Detected (Not Detect) U Benzodiazepines Scrn Not Detected (Not Detect) Urine Cocaine Screen Not Detected (Not Detect) U Marijuana (THC) Screen POSITIVE H (Not Detect) Ethyl Alcohol mg/dL COVID-19 (SONAL) (Negative) COVID-19 Clin Com Influenza Type A (DERREK) (Negative) Influenza Type B (DERREK) (Negative) Influenza A & B Note Independent Interpretation I performed an independent interpretation of an: Plain X-Ray Radiology Impression Discussion of test interpretation with radiology: I have reviewed the radiologist's reading. Radiologist Impression: Normal appearance of the cardiomediastinal structures. Mild diffuse vascular indistinctness is noted. No focal pulmonary consolidation identified. No peribronchial wall thickening visualized. No effusions or pneumothoraces. XR/XR chest 1V IMPRESSION: *Diffuse pulmonary vascular indistinctness. Findings are suspicious for pulmonary vascular congestion. No focal pulmonary consolidation identified. Independent Historian Clinical information obtained from an independent historian. History obtained from or confirmed by: EMS External Record Review External record reviewed: Inpatient record Critical Care Time Critical Care Time Critical Care Time: Yes Total Critical Care Time: 90 Attestation: I have personally provided critical care time. Time includes review of lab data, radiology results, discussion with consultants, and monitoring for potential decompensation. Intervention performed as documented. Discharge Plan Discharge Clinical Impression: Acute and chronic respiratory failure with hypercapnia Patient Disposition: Admitted As Inpatient Prescriptions: No Action ipratropium-albuterol 0.5 mg-3 mg(2.5 mg base)/3 mL solution for nebulization 3 ml inhalation Q4H PRN (Reason: for dyspnea) Qty: 180 11RF verapamil 120 mg tablet 120 mg PO BID Qty: 60 1RF nicotine (polacrilex) [Nicorette] 4 mg mini lozenge 4 mg buccal Q4-8H PRN (Reason: nicotine cravings) Qty: 81 0RF baclofen 15 mg Tablet 15 mg PO TID MDD 45 lidocaine 4 % Cream 1 appl TOPICAL DAILY PRN (Reason: Pain) vitamin Q61-eibjt acid 0.5-1 mg Tablet 1 tab PO DAILY Trelegy Ellipta 200-62.5-25 mcg Blister With Device 1 inh INHALATION DAILY azithromycin 500 mg tablet 500 mg PO DAILY 2 Days Qty: 2 0RF Rx Instructions: start on day 2 of therapy prednisone 10 mg tablet See Taper PO DIRECTED Qty: 20 0RF Taper: Prednisone 40 mg daily for 2 Days and 0 Hour 30 mg daily for 2 Days and 0 Hour 20 mg daily for 2 Days and 0 Hour 10 mg daily for 2 Days and 0 Hour Rx Instructions: see taper instructions atorvastatin 80 mg tablet 80 mg PO BEDTIME hydrocodone-acetaminophen 5-325 mg tablet 1 tab PO BID PRN (Reason: Pain) qwaxtimlcl-rjbrtfioqmsgq-afjf 50-325-40 mg tablet 1 tab PO DAILY MRX1 PRN (Reason: Headache) hyoscyamine sulfate 0.125 mg tablet 0.25 mg PO Q6H PRN (Reason: Abdominal Discomfort) gabapentin 300 mg capsule 1,200 mg PO TID oxcarbazepine 600 mg tablet 600 mg PO BID lorazepam 1 mg tablet 1 mg PO DAILY PRN (Reason: Anxiety) duloxetine 60 mg capsule,delayed release(DR/EC) 60 mg PO BID aspirin 81 mg Tablet,Delayed Release (Dr/Ec) 81 mg PO DAILY Qty: 90 0RF (DME) nebulizer and compressor Device See Rx Instructions .Route Qty: 1 0RF Rx Instructions: As directed albuterol sulfate 90 mcg/actuation HFA aerosol inhaler 2 puff inhalation Q4H PRN (Reason: Shortness Of Breath Or Wheezing) guaifenesin 100 mg/5 mL liquid 200 mg PO Q6H PRN (Reason: Congestion) prazosin 2 mg capsule 2 mg PO BEDTIME (DME) Oxygen Home Use Kit See Rx Instructions .Route Rx Instructions: As directed Print Language: Arabic
[2024-05-01 04:41] LABS: COVID-19 Test Negative (Negative); IDNOW Serial# 08D9AD1C; IDNOW Serial# 152EDE1D; Influenza A Negative (Negative); Influenza B2 Negative (Negative)
[2024-05-01 04:42] LABS: B Type Natriuretic Peptide 112 pg/mL (<100)
[2024-05-01 04:43] LABS: Troponin-I High Sensitivity 10.7 ng/L (<3.5-17.0)
[2024-05-01 04:44] LABS: Lactic Acid 5.8 mmol/L (0.5-2.0)
[2024-05-01 04:48] LABS: Alanine Aminotransferase 74 U/L (0-31); Albumin Level 4.3 g/dL (3.5-5.0); Alkaline Phosphatase 178 U/L (39-117); Anion Gap 17 (12-20); Aspartate Amino Transferase 52 U/L (5-31); Bilirubin Direct < 0.2 mg/dL (0.0-0.5); Bilirubin Total 0.2 mg/dL (0.0-1.0); Blood Urea Nitrogen 16 mg/dL (9-16); Calcium 9.3 mg/dL (8.4-10.2); Carbon Dioxide 21 mmol/L (22-29); Chloride 110 mmol/L (96-108); Creatinine Clr Calc Pharmacy 61.1; Estimated Glomerular Filt Rate 57; Ethanol < 10 mg/dL; Glucose Random 266 mg/dL (60-115); Magnesium 2.8 mg/dL (1.6-2.6); Potassium 4.9 mmol/L (3.3-5.1); Sodium 143 mmol/L (135-145)
[2024-05-01 04:49] LABS: ABG Base Excess -4.9 mmol/L; ABG HCO3 25 mmol/L (22-26); ABG pCO2 70 mmHg (32-45); ABG pH 7.15 (7.35-7.45); ABG pO2 92 mmHg (83-108)
[2024-05-01] MEDS: Albuterol Sulfate 5 MG, Albuterol/Iprat 2.5/0.5MG 3 ML 3 ML INHALE (04:57)
[2024-05-01] MEDS: vancomycin/NS 2,000 MG/500 ML PLAST..BAG 250 MG IV (04:57)
[2024-05-01] MEDS: 0.9 % Sodium Chloride 2,000 ML 999 ML IVCONT (04:57)
[2024-05-01 04:58] LABS: TSH reflex Free T4 8.78 uIU/mL (0.32-4.0)
[2024-05-01 05:02] LABS: ABG Refer to POC result
--- NOTE | 2024-05-01 05:25 | PC.NURSE ---
Pt taken to and from CT without complications.
[2024-05-01 05:37] LABS: Free T4 (Free Thyroxine) 0.62 ng/dL (0.71-1.85)
[2024-05-01 05:41] LABS: Appearance Urine Clear; Color Urine Yellow; Glucose Urine UA Negative (Negative); Leukocyte Esterase Urine Negative (Negative); Nitrite Urine Negative (Negative); PH 5.5 (5.0-9.0); Specific Gravity - Urine <= 1.005 (1.005-1.025); Urine Blood Negative (Negative); Urine Ketones Negative (Negative); Urine Protein Negative (Neg-Trace)
[2024-05-01 05:46] LABS: Bacteria Urine None Seen (None Seen); Hyaline Casts Urine 0-2 /LPF (0-2); RBC Urine 0-2 /HPF (0-2); Squamous Epithelial Cell Urine 0-2 /HPF (0-2); WBC Urine 0-5 /HPF (0-5)
[2024-05-01 05:56] LABS: Amphetamine Screen Urine Not Detected (Not Detect); Barbiturates, Urine Not Detected (Not Detect); Benzodiazepines Screen Urine Not Detected (Not Detect); Buprenorphine Scr Not Detected (Not Detect); Cannabinoid Screen Urine POSITIVE (Not Detect); Cocaine Screen Urine Not Detected (Not Detect); Fentanyl, urine Not Detected (Not Detect); Methadone Screen, Urine Not Detected (Not Detect); Opiate Screen Urine Not Detected (Not Detect); Oxycodone Screen Urine Not Detected (Not Detect); Phencyclidine Screen Urine Not Detected (Not Detect)
[2024-05-01 06:06] LABS: ABG Base Excess -2.6 mmol/L; ABG HCO3 24 mmol/L (22-26); ABG pCO2 51 mmHg (32-45); ABG pH 7.28 (7.35-7.45); ABG pO2 89 mmHg (83-108)
[2024-05-01 06:22] LABS: Reflex Lactate? Lactic Acid Added
[2024-05-01 06:48] LABS: ~Lactic Acid-LAB USE ONLY 2.6 mmol/L (0.5-2.0)
[2024-05-01] MEDS: Enoxaparin Sodium 40 MG/0.4 ML SYRINGE SUBCUT (07:26)
--- NOTE | 2024-05-01 07:39 | PHA.MEDREC ---
Pharmacy Consult ? Medication Reconciliation Pharmacy has completed the medication reconciliation. Utilized home med list from patient.
--- NOTE | 2024-05-01 08:30 | PM.CCHP ---
History of Present Illness Date of Service: 05/01/24 Chief Complaint: Shortness of breath 59-year-old lady with past medical history of COPD on home oxygen, JUANITO on nighttime BiPAP, trigeminal neuralgia, status post mitral wall replacement, hypertension, hyperlipidemia recent hospitalization COPD exacerbation discharged 04/18/2024 presented to the hospital with worsening shortness of breath. Patient has shortness of breath at baseline, it worsened abruptly overnight, no triggers, no fever, associated with cough, exacerbated by activity, not relieved by rest. Admitted to the ICU for rescue BiPAP Review of Systems Constitutional: Constitutional: Denies daytime sleepiness and Reports difficulty sleeping Eyes: Eyes: Denies exophthalmos and Denies change in vision ENT: Reports Normal hearing present and Denies bleeding gums Cardiovascular: Cardiovascular: Denies Abdominal Cramping after Meds and Denies Abdominal Distension Respiratory: Respiratory: Denies no additional respiratory complaints, Reports change in phlegm color, Reports chest congestion and Reports cough Gastrointestinal: Gastrointestinal: Denies abdominal pain and Denies belching Genitourinary: Genitourinary: Denies abnormal menses and Denies abnormal vaginal bleeding Musculoskeletal: Musculoskeletal: Denies abnormal gait and Denies back pain Integumentary/Breasts: Skin/Breast: Denies bleeding lesions and Denies breast swelling Neurologic: Reports Normal hearing present, Denies Neuro-related abnormal movements, Denies Abnormal speech present and Denies abnormal gait PMFSH Past Medical History Medical History Chronic lung disease Hypogammaglobulinemia Smoker JUANITO (obstructive sleep apnea) Allergies Hypertension Elevated troponin COPD (chronic obstructive pulmonary disease) Chronic hypercapnic respiratory failure Trigeminal neuralgia Pulmonary nodules Mixed hyperlipidemia Peripheral neuropathy Tobacco use disorder Mood disorder Surgical History Surgical History History of esophagogastroduodenoscopy (EGD) History of colonoscopy History of lumbar discectomy History of tubal ligation History of excision of mass History of shoulder surgery Social History Social History Household Members: Spouse Housing: House Do you presently have visiting nurse or other home services: Yes Alcohol intake: former Comment: refusing bed alarm Patient Tobacco Use Status: Former Tobacco user Tobacco use type: Cigarette Cigarette Packs Per Day: 4 Cigarettes Per Day: 80.0 Years Smoked: 40 Smoked in Last 30 Days: No e-Cigarette/Vaping Use: Former Use Second Hand Smoke Exposure: No Use of substances other than those prescribed or required for medical reasons: Yes Substance Use Type: Marijuana Substance Use Type Other:: Edible Marihuana Substance Use Frequency: Daily Last Used Substance: Hours (ago) Currently Displaying Signs/Symptoms of Drug Intoxication Withdrawal: No Any prior treatment program specific to substance use: No Have you been hit, kicked, punched, or otherwise hurt by someone within the past year? If so, by whom?: No Do you feel safe in your current relationship?: Yes Is there a partner from a previous relationship who is making you feel unsafe now?: No Are you made to feel afraid or neglected: No Advance Directives: Yes Advance Directives on File: Yes Advance Directives Date on File: 03/09/23 Do you have a plan to hurt others: No Plan Recently lost weight without trying: No Nutrition Risks: No Nutritional Risk Patient : No : No Poor oral hygiene: No service: No Meds Allergies Allergy/AdvReac Type Severity Reaction Status Date / Time Iodinated Contrast Media Allergy Intermediate HIVES Verified 05/01/24 04:24 [IV CONTRAST] latex [LATEX] Allergy Unknown RASH Verified 05/01/24 04:24 morphine [MORPHINE] AdvReac Unknown VOMITING Verified 05/01/24 04:24 Active Medications: Current Medications Albuterol/Ipratropium (Albuterol/Iprat 2.5/0.5mg 3 Ml Ampul.Neb) 3 ml INHALE Q4H PRN PRN Reason: for dyspnea Amlodipine Besylate (Amlodipine Besylate 5 Mg Tablet) 5 mg PO DAILY [facility]; Protocol Aspirin (Aspirin Enteric Coated 81 Mg Tablet.) 81 mg PO DAILY [facility] Atorvastatin Calcium (Atorvastatin Calcium 80 Mg Tablet) 80 mg PO BEDTIME [facility] Duloxetine HCl (Duloxetine Hcl 60 Mg Capsule.) 60 mg PO BID [facility] Enoxaparin Sodium (Enoxaparin Sodium 40 Mg/0.4 Ml Syringe) 40 mg SUBCUT Q24H [facility] Last Admin: 05/01/24 07:26 Dose: 40 mg Furosemide (Furosemide 20 Mg Tablet) 20 mg PO DAILY [facility]; Protocol Gabapentin (Gabapentin 400 Mg Capsule) 1,200 mg PO TID [facility] Non-Formulary Medication (Baclofen) 15 mg PO TID [facility] Oxcarbazepine (Oxcarbazepine 300 Mg Tablet) 600 mg PO BID [facility] Verapamil HCl (Verapamil Hcl 120 Mg Tablet) 120 mg PO BID [facility]; Protocol Home Medications ?Medication ?Instructions ?Recorded ?Confirmed ?Last Taken ?Type atorvastatin 80 mg tablet 80 mg PO BEDTIME 03/04/23 05/01/24 04/15/24 History yzyvsksvun-ihrmxukfacdcg-ehhebfof 1 tab PO DAILY MRX1 PRN Headache 03/04/23 05/01/24 1 Day Ago History 50 mg-325 mg-40 mg tablet ~01/16/24 duloxetine 60 mg capsule,delayed 60 mg PO BID 03/04/23 05/01/24 04/15/24 History release gabapentin 300 mg capsule 1,200 mg PO TID 03/04/23 05/01/24 04/15/24 14:00 History hydrocodone 5 mg-acetaminophen 325 1 tab PO BID PRN Pain 03/04/23 05/01/24 04/14/24 History mg tablet hyoscyamine sulfate 0.125 mg tablet 0.25 mg PO Q6H PRN Abdominal 03/04/23 05/01/24 04/14/24 History Discomfort lorazepam 1 mg tablet 0.5 mg PO DAILY PRN Anxiety 03/04/23 05/01/24 04/14/24 History oxcarbazepine 600 mg tablet 600 mg PO BID 03/04/23 05/01/24 04/15/24 History 0800 Oxygen Home Use 04/16/23 03/10/24 03/10/24 History prazosin 2 mg capsule 2 mg PO BEDTIME 04/16/23 05/01/24 04/14/24 History baclofen 15 mg tablet 15 mg PO TID 01/10/24 05/01/24 04/15/24 08:00 History albuterol sulfate 90 mcg/actuation 2 puff inhalation Q4H PRN 01/31/24 05/01/24 03/10/24 History aerosol inhaler Shortness Of Breath Or Wheezing fluticasone fur. 200 mcg-umeclid 1 inh inhalation DAILY 02/14/24 05/01/24 04/15/24 History 62.5 mcg-vilant 25 mcg inhalat.powder (Trelegy Ellipta) amlodipine 5 mg tablet 5 mg PO DAILY 05/01/24 05/01/24 Unknown History furosemide 20 mg tablet 20 mg PO DAILY 05/01/24 05/01/24 Unknown History Physical Exam Vital Signs: Vital Signs: Last Vital Signs Temp 97.8 F 05/01/24 08:00 Pulse 82 05/01/24 08:00 Resp 25 H 05/01/24 08:00 BP 129/71 05/01/24 08:00 Pulse Ox 93 05/01/24 08:00 O2 Del Method BiPAP 05/01/24 08:00 FiO2 30 05/01/24 08:01 Oxygen Flow Rate 8.8 05/01/24 08:01 BMI result Body Mass Index 37.7 General: acute distress, ill appearing and tired appearing Nutritional Appearance: well nourished and overweight Eyes: appearance normal, both eyes and all related structures; Alignment and Position: alignment normal and position normal Neck: No lymphadenopathy, no thyromegaly Resp: bilateral air entry equal, bilateral wheeze heard Cardio: Regular rate, regular rhythm; Heart sounds: S1 normal heart sound present and S2 normal heart sound present GI: soft, nontender, no guarding, no hepatosplenomegaly : bladder normal to inspection, bladder normal to palpation, no renal angle tenderness Skin: no rashes or lesions noted and elasticity normal Neuro: oriented to person, oriented to place, oriented to time and moves all extremities Neuro: Cranial nerves: Yes Normal hearing present Speech: No Abnormal speech present Results Labs 05/01/24 04:17 05/01/24 04:17 Labs: Laboratory Results - last 24 hr 05/01/24 05/01/24 05/01/24 04:16 04:17 04:23 MCV 104.0 H MCH 32.2 MCHC 30.9 L RDW 13.2 Plt Count 390 D MPV 9.4 Immature Gran % (Auto) 1.5 H Neut % (Auto) 52.2 Lymph % (Auto) 32.2 [place] % (Auto) 10.5 Eos % (Auto) 3.1 Baso % (Auto) 0.5 Lymph # (Auto) 4.4 [place] # (Auto) 1.5 H Eos # (Auto) 0.4 Baso # (Auto) 0.1 Abs Immat Gran (auto) 0.20 H Absolute Neuts (auto) 7.2 Absolute Nucleated RBC 0.000 Nucleated RBC % (auto) 0.0 PT 10.4 L INR 0.9 O2 Saturation ABG pH at Pt Temp ABG pCO2 at Pt Temp ABG pO2 at Pt Temp ABG HCO3 ABG Base Excess (Actual) VBG pH 6.97 L* VBG pCO2 90 VBG pO2 218 VBG HCO3 21 L VBG O2 Saturation 99.0 VBG Base Excess -12.5 Anion Gap 17 Estim Creat Clear Calc 61.1 Estimated GFR 57 Random Glucose 266 H Lactic Acid 5.8 H* Lactic Acid F/U @ 2Hr Calcium 9.3 Magnesium 2.8 H Total Bilirubin 0.2 Direct Bilirubin < 0.2 AST 52 H ALT 74 H Alkaline Phosphatase 178 H Troponin I High Sens 10.7 D B-Natriuretic Peptide 112 H Total Protein 7.0 Albumin 4.3 TSH 8.78 H Free T4 0.62 L Urine Color Urine Appearance Urine pH Ur Specific [place] Urine Protein Urine Glucose (UA) Urine Ketones Urine Blood Urine Nitrite Ur Leukocyte Esterase Urine RBC Urine WBC Ur Squamous Epith Cells Urine Bacteria Hyaline Casts Urine Opiates Screen Ur Buprenorphine Scrn Ur Oxycodone Screen Urine Methadone Screen Urine Fentanyl Screen Ur Barbiturates Screen Ur Phencyclidine Scrn Ur Amphetamines Screen U Benzodiazepines Scrn Urine Cocaine Screen U Marijuana (THC) Screen Ethyl Alcohol < 10 COVID-19 (SONAL) Negative COVID-19 Clin Com See Note Influenza Type A (DERREK) Negative Influenza Type B (DERREK) Negative Influenza A & B Note See Note 05/01/24 05/01/24 05/01/24 04:45 05:36 05:56 MCV MCH MCHC RDW Plt Count MPV Immature Gran % (Auto) Neut % (Auto) Lymph % (Auto) [place] % (Auto) Eos % (Auto) Baso % (Auto) Lymph # (Auto) [place] # (Auto) Eos # (Auto) Baso # (Auto) Abs Immat Gran (auto) Absolute Neuts (auto) Absolute Nucleated RBC Nucleated RBC % (auto) PT INR O2 Saturation 95.0 97.0 ABG pH at Pt Temp 7.15 L* 7.28 L ABG pCO2 at Pt Temp 70 H* 51 H ABG pO2 at Pt Temp 92 89 ABG HCO3 25 24 ABG Base Excess (Actual) -4.9 -2.6 VBG pH VBG pCO2 VBG pO2 VBG HCO3 VBG O2 Saturation VBG Base Excess Anion Gap Estim Creat Clear Calc Estimated GFR Random Glucose Lactic Acid Lactic Acid F/U @ 2Hr Calcium Magnesium Total Bilirubin Direct Bilirubin AST ALT Alkaline Phosphatase Troponin I High Sens B-Natriuretic Peptide Total Protein Albumin TSH Free T4 Urine Color Yellow Urine Appearance Clear Urine pH 5.5 Ur Specific [place] <= 1.005 Urine Protein Negative Urine Glucose (UA) Negative Urine Ketones Negative Urine Blood Negative Urine Nitrite Negative Ur Leukocyte Esterase Negative Urine RBC 0-2 Urine WBC 0-5 Ur Squamous Epith Cells 0-2 Urine Bacteria None Seen Hyaline Casts 0-2 Urine Opiates Screen Not Detected Ur Buprenorphine Scrn Not Detected Ur Oxycodone Screen Not Detected Urine Methadone Screen Not Detected Urine Fentanyl Screen Not Detected Ur Barbiturates Screen Not Detected Ur Phencyclidine Scrn Not Detected Ur Amphetamines Screen Not Detected U Benzodiazepines Scrn Not Detected Urine Cocaine Screen Not Detected U Marijuana (THC) Screen POSITIVE H Ethyl Alcohol COVID-19 (SONAL) COVID-19 Clin Com Influenza Type A (DERREK) Influenza Type B (DERREK) Influenza A & B Note 05/01/24 06:29 MCV MCH MCHC RDW Plt Count MPV Immature Gran % (Auto) Neut % (Auto) Lymph % (Auto) [place] % (Auto) Eos % (Auto) Baso % (Auto) Lymph # (Auto) [place] # (Auto) Eos # (Auto) Baso # (Auto) Abs Immat Gran (auto) Absolute Neuts (auto) Absolute Nucleated RBC Nucleated RBC % (auto) PT INR O2 Saturation ABG pH at Pt Temp ABG pCO2 at Pt Temp ABG pO2 at Pt Temp ABG HCO3 ABG Base Excess (Actual) VBG pH VBG pCO2 VBG pO2 VBG HCO3 VBG O2 Saturation VBG Base Excess Anion Gap Estim Creat Clear Calc Estimated GFR Random Glucose Lactic Acid Lactic Acid F/U @ 2Hr 2.6 H* Calcium Magnesium Total Bilirubin Direct Bilirubin AST ALT Alkaline Phosphatase Troponin I High Sens B-Natriuretic Peptide Total Protein Albumin TSH Free T4 Urine Color Urine Appearance Urine pH Ur Specific [place] Urine Protein Urine Glucose (UA) Urine Ketones Urine Blood Urine Nitrite Ur Leukocyte Esterase Urine RBC Urine WBC Ur Squamous Epith Cells Urine Bacteria Hyaline Casts Urine Opiates Screen Ur Buprenorphine Scrn Ur Oxycodone Screen Urine Methadone Screen Urine Fentanyl Screen Ur Barbiturates Screen Ur Phencyclidine Scrn Ur Amphetamines Screen U Benzodiazepines Scrn Urine Cocaine Screen U Marijuana (THC) Screen Ethyl Alcohol COVID-19 (SONAL) COVID-19 Clin Com Influenza Type A (DERREK) Influenza Type B (DERREK) Influenza A & B Note Imaging Radiologist's Impressions: Impressions Chest X-Ray 05/01/24 04:07 IMPRESSION: *Diffuse pulmonary vascular indistinctness. Findings are suspicious for pulmonary vascular congestion. No focal pulmonary consolidation identified. Electronically signed by: Jeb Colorado MD 05/01/2024 04:21 AM EST RP Chest CT 05/01/24 05:17 IMPRESSION: Unenhanced CT of the chest: *No definitive acute pulmonary abnormalities noted. No pulmonary consolidation. Mild central peribronchial wall thickening which could correlate with bronchitis or could represent the chronic sequela of asthma. The degree of central peribronchial wall thickening is diminished compared with contemporaneous review of the CT of the chest 04/21/2024. No endobronchial lesions. *Mild scattered coronary artery calcific atherosclerosis. Electronically signed by: Jeb Colorado MD 05/01/2024 06:13 AM EST RP Assessment and Plan (1) COPD exacerbation: Status: Acute (2) Acute and chronic respiratory failure with hypoxia: Status: Resolved (3) Chronic hypoxic respiratory failure: Status: Resolved (4) Hypertension: Qualifiers: Hypertension type: primary hypertension Qualified Code(s): I10 - Essential (primary) hypertension Status: Inactive (5) Mood disorder: Status: Inactive Plan COPD exacerbation: At baseline patient is on home oxygen at nighttime BiPAP which she is not compliant due to trigeminal neuralgia wean from BIPAP as tolerated during the day Duo nebwillem around the clock Continue Solu-Medrol for now On vanc and Zosyn, we will get MRSA nares if negative we will discontinue vanc Trigeminal neuralgia: Mood disorder: On verapamil at home, continue Continue home duloxetine Continue home opioids as needed Hypertension: Continue home amlodipine and Lasix Prophylaxis: Lovenox
[2024-05-01 08:32] LABS: Reflex Lactate? 2 Y
[2024-05-01] MEDS: DULoxetine HCl 60 MG CAPSULE.DR PO ×2 (09:55→19:50)
[2024-05-01] MEDS: Baclofen 10 MG TABLET 15 MG PO ×3 (09:55→19:52)
[2024-05-01] MEDS: VerapamiL HCL 120 MG TABLET PO ×2 (09:55→19:51)
[2024-05-01] MEDS: Aspirin Enteric Coated 81 MG TABLET.DR PO (09:55)
[2024-05-01] MEDS: Furosemide 20 MG TABLET PO (09:55)
[2024-05-01] MEDS: Gabapentin 400 MG CAPSULE 1200 MG PO ×3 (09:56→19:49)
[2024-05-01] MEDS: OXcarbazepine 300 MG TABLET 600 MG PO ×2 (09:56→19:53)
[2024-05-01 10:02] LABS: Venous Blood Gas Refer to POC result
[2024-05-01 10:03] LABS: VBG Base Excess 2.1 mmol/L; VBG HCO3 25 mmol/L (22-26); VBG pCO2 36 mmHg; VBG pH 7.45 (7.32-7.43); VBG pO2 131 mmHg
[2024-05-01 10:16] LABS: ~Lactic Acid-LAB USE ONLY 1.5 mmol/L (0.5-2.0)
--- NOTE | 2024-05-01 10:18 | MHC.CM.PN ---
Met with pt to review d/c planning needs: pt resides w/spouse, is active with [facility] and [facility] and uses a walker. HCP on file - pt would like to return to home with existing services, declined STR at this time citing a poor experience in the past. referred back to [facility] to follow
[2024-05-01] MEDS: oxyCODONE HCl Immed Release 5 MG TABLET PO ×2 (10:30→19:54)
[2024-05-01] MEDS: Albuterol/Iprat 2.5/0.5MG 3 ML AMPUL.NEB INHALE ×3 (12:04→20:41)
[2024-05-01 12:15] LABS: MRSA Nasal PCR NEGATIVE (Negative); SA Nasal PCR NEGATIVE (Negative)
[2024-05-01] MEDS: Atorvastatin Calcium 80 MG TABLET PO (19:50)
[2024-05-01] MEDS: Prazosin HCL 1 MG CAPSULE 2 MG PO (19:50)
[2024-05-01] MEDS: LORazepam 0.5 MG TABLET PO (22:23)
[2024-05-02] VITALS (11 sets, daily range): BP systolic 109–139; BP diastolic 61–72; PULSE 77–98; RESP 16–20; TEMP 36.1–36.6; O2SAT 90–98; BMI 37.9
[2024-05-02] MEDS: DULoxetine HCl 60 MG CAPSULE.DR PO ×2 (07:33→20:45)
[2024-05-02] MEDS: Gabapentin 400 MG CAPSULE 1200 MG PO ×2 (07:33→20:46)
[2024-05-02] MEDS: Baclofen 10 MG TABLET 15 MG PO ×2 (07:34→20:45)
[2024-05-02 07:51] LABS: MANUAL DIFF FLAG NO
[2024-05-02] MEDS: OXcarbazepine 300 MG TABLET 600 MG PO ×2 (07:51→20:47)
[2024-05-02 07:55] LABS: Venous Blood Gas Refer to POC result
[2024-05-02 07:55] LABS: VBG Base Excess 7.1 mmol/L; VBG HCO3 31 mmol/L (22-26); VBG pCO2 43 mmHg; VBG pH 7.47 (7.32-7.43); VBG pO2 66 mmHg
[2024-05-02 08:00] LABS: Basophils Percent Auto 0.4 % (0-2); Eosinophils Absolute Auto 0.2 X10*3/uL (0.0-0.4); Eosinophils Percent Auto 1.3 % (0-4); Hematocrit 40.8 % (37.0-47.0); Hemoglobin 13.4 g/dl (12.0-16.0); Imm Gran Abs Auto 0.04 X10*3/uL (0.00-0.03); Imm Gran Pct Auto 0.4 % (0.0-0.4); Lymphocytes Absolute Auto 2.1 X10*3/uL (1.2-4.9); Lymphocytes Percent Auto 18.1 % (20-40); Mean Corpuscular HGB Conc 32.8 g/dl (31.0-35.0); Mean Corpuscular Hemoglobin 32.4 pg (27.0-33.0); Mean Corpuscular Volume 98.6 fL (80.0-98.0); Mean Platelet Volume 9.2 fL (9.4-12.3); Monocytes Absolute Auto 1.3 X10*3/uL (0.1-1.2); Neutrophils Absolute Auto 7.8 x10*3/uL (2.0-8.3); Neutrophils Percent Auto 68.8 % (45-73); Platelet Count 330 X10*3/uL (160-400); Red Blood Count 4.14 X10*6/uL (4.20-5.50); Red Cell Distribution Width 13.5 % (11.0-16.0); White Blood Count 11.4 X10*3/uL (4.8-10.8)
[2024-05-02 08:14] LABS: Alanine Aminotransferase 54 U/L (0-31); Albumin Level 3.9 g/dL (3.5-5.0); Alkaline Phosphatase 137 U/L (39-117); Anion Gap 11 (12-20); Aspartate Amino Transferase 44 U/L (5-31); Bilirubin Total 0.5 mg/dL (0.0-1.0); Blood Urea Nitrogen 14 mg/dL (9-16); Calcium 8.7 mg/dL (8.4-10.2); Carbon Dioxide 30 mmol/L (22-29); Chloride 104 mmol/L (96-108); Creatinine Clr Calc Pharmacy 79.8; Estimated Glomerular Filt Rate > 60; Glucose Random 120 mg/dL (60-115); Magnesium 2.3 mg/dL (1.6-2.6); Phosphorus 2.5 mg/dL (2.7-4.5); Potassium 3.5 mmol/L (3.3-5.1); Sodium 141 mmol/L (135-145); Total Protein 6.2 g/dL (6.5-8.0)
[2024-05-02] MEDS: Albuterol/Iprat 2.5/0.5MG 3 ML AMPUL.NEB INHALE ×5 (08:15→23:08)
[2024-05-02] MEDS: Enoxaparin Sodium 40 MG/0.4 ML SYRINGE SUBCUT (09:27)
[2024-05-02] MEDS: Furosemide 20 MG TABLET PO (09:28)
[2024-05-02] MEDS: Aspirin Enteric Coated 81 MG TABLET.DR PO (09:28)
[2024-05-02] MEDS: VerapamiL HCL 120 MG TABLET PO ×2 (09:28→20:46)
[2024-05-02] MEDS: oxyCODONE HCl Immed Release 5 MG TABLET PO (13:27)
--- NOTE | 2024-05-02 14:22 | HO.WOUND ---
Wound Consult: Initial 59yr old?[place] [facility] See progress notes and H&P for detailed history.? Wound consult placed for Wound .? Patient agreeable to assessment and photo documentation.? Chart review completed discussed with direct care nurse and patient no wound noted. The patient reports some soreness to her right lateral malleolus foam dressing in place peeled back and assessed no injury noted - pink intact blanchable tissue noted. Sacrum and coccyx assessed no injury noted. No topical recommendations needed at this time. May continue with preventative foam dressing as needed.
--- NOTE | 2024-05-02 16:23 | P.PNIM_ITS ---
Subjective Subjective Date of Service: 05/02/24 Interval History: f/u on copd exacerbation that required rescue bipap she has doing better and has not had any further acute respiratory distress Physical Exam 2 Vital Signs: Vital Signs: Last Vital Signs Temp 97.2 F 05/02/24 15:44 Pulse 98 05/02/24 15:45 Resp 18 05/02/24 15:45 BP 139/68 05/02/24 15:44 Pulse Ox 97 05/02/24 15:44 O2 Del Method Nasal Cannula 05/02/24 15:44 O2 Flow Rate 3 05/02/24 15:44 FiO2 30 05/01/24 09:00 Oxygen Flow Rate 8.8 05/01/24 08:01 BMI result Body Mass Index 37.9 General: AO X 3, no acute distress Resp: CTA bilateral CVS: S1,S2,RRR GI: +BS, NT, no distention Skin: No rash Neuro: motor grossly intact Psych: appropriate affect Objective Data Active Medications Albuterol/Ipratropium (Albuterol/Iprat 2.5/0.5mg 3 Ml Ampul.Neb) 3 ml INHALE Q4H PRN PRN Reason: for dyspnea Last Admin: 05/01/24 12:04 Dose: 3 ml Documented By: MURRAY Albuterol/Ipratropium (Albuterol/Iprat 2.5/0.5mg 3 Ml Ampul.Neb) 3 ml INHALE RQ4H WHILE AWAKE [facility] Last Admin: 05/02/24 15:45 Dose: 3 ml Documented By: WILL Amlodipine Besylate (Amlodipine Besylate 5 Mg Tablet) 5 mg PO DAILY [facility]; Protocol Last Admin: 05/02/24 09:29 Dose: Not Given Documented By: ADDY Non-Admin Reason: Patient Refused Aspirin (Aspirin Enteric Coated 81 Mg Tablet.) 81 mg PO DAILY [facility] Last Admin: 05/02/24 09:28 Dose: 81 mg Documented By: ADDY Atorvastatin Calcium (Atorvastatin Calcium 80 Mg Tablet) 80 mg PO BEDTIME [facility] Last Admin: 05/01/24 19:50 Dose: 80 mg Documented By: NATALIE Baclofen (Baclofen 10 Mg Tablet) 15 mg PO TID [facility] Last Admin: 05/02/24 07:34 Dose: 15 mg Documented By: NATALIE Duloxetine HCl (Duloxetine Hcl 60 Mg Capsule.) 60 mg PO BID [facility] Last Admin: 05/02/24 07:33 Dose: 60 mg Documented By: NATALIE Enoxaparin Sodium (Enoxaparin Sodium 40 Mg/0.4 Ml Syringe) 40 mg SUBCUT Q24H [facility] Last Admin: 05/02/24 09:27 Dose: 40 mg Documented By: ADDY Furosemide (Furosemide 20 Mg Tablet) 20 mg PO DAILY [facility]; Protocol Last Admin: 05/02/24 09:28 Dose: 20 mg Documented By: ADDY Gabapentin (Gabapentin 400 Mg Capsule) 1,200 mg PO TID [facility] Last Admin: 05/02/24 07:33 Dose: 1,200 mg Documented By: NATALIE Oxcarbazepine (Oxcarbazepine 300 Mg Tablet) 600 mg PO BID [facility] Last Admin: 05/02/24 07:51 Dose: 600 mg Documented By: SHIRLEY Oxycodone HCl (Oxycodone Hcl Immed Release 5 Mg Tablet) 5 mg PO BID PRN PRN Reason: Pain, Moderate(Pain Scale 4-6) Last Admin: 05/02/24 13:27 Dose: 5 mg Documented By: SHIRLEY Prazosin HCl (Prazosin Hcl 1 Mg Capsule) 2 mg PO BEDTIME [facility]; Protocol Last Admin: 05/01/24 19:50 Dose: 2 mg Documented By: NATALIE Verapamil HCl (Verapamil Hcl 120 Mg Tablet) 120 mg PO BID [facility]; Protocol Last Admin: 05/02/24 09:28 Dose: 120 mg Documented By: ADDY Labs 05/02/24 07:44 05/02/24 07:44 Labs: Laboratory Results - last 24 hr 05/02/24 05/02/24 07:44 07:51 MCV 98.6 H D MCH 32.4 MCHC 32.8 RDW 13.5 Plt Count 330 MPV 9.2 L Immature Gran % (Auto) 0.4 Neut % (Auto) 68.8 Lymph % (Auto) 18.1 L [place] % (Auto) 11.0 Eos % (Auto) 1.3 Baso % (Auto) 0.4 Lymph # (Auto) 2.1 [place] # (Auto) 1.3 H Eos # (Auto) 0.2 Baso # (Auto) 0.0 Abs Immat Gran (auto) 0.04 H Absolute Neuts (auto) 7.8 Absolute Nucleated RBC 0.000 Nucleated RBC % (auto) 0.0 VBG pH 7.47 H VBG pCO2 43 VBG pO2 66 VBG HCO3 31 H VBG O2 Saturation 94.0 VBG Base Excess 7.1 Anion Gap 11 L Estim Creat Clear Calc 79.8 Estimated GFR > 60 Random Glucose 120 H Calcium 8.7 D Phosphorus 2.5 L Magnesium 2.3 Total Bilirubin 0.5 AST 44 H ALT 54 H Alkaline Phosphatase 137 H Total Protein 6.2 L Albumin 3.9 Microbiology Microbiology Results: Microbiology 05/01/24 04:16 Blood Culture - Preliminary Blood - Venous No growth after 24 hours. 05/01/24 04:16 Blood Culture - Preliminary Blood - Venous No growth after 24 hours. Assessment and Plan (1) COPD exacerbation: Status: Acute Plan 59yo F with chronic hypoxia on 3-4L O2 due to COPD with hx of inbubation , HTN, HLD, hx CVA, trigeminal/occipital neuralgia, mood disorder presenting with worsening dyspnea admitted through icu briefly for copd exacerbation and required rescue bipap acute COPD exacerbation--with rapid improvement following bipap in icu -continue bronchodilators by Neb - add Prednisone -continue O2 with goal of O2 88 to 92 chronic hypoxic resp failure - continue home O2 HLD hx CVA - ASA, atorvastatin HTN - amlodipine trigeminal/occipital neuralgia - baclofen, gabapentin, oxcarbazepine, duloxetine tobacco abuse - she reports no longer smoking mood disorder - continue duloxetine chronic leg edema - furosemide anicipated dc tomorrow VTE ppx - enoxaparin Quality Stroke Does the patient have a stroke diagnosis?: No VTE Prior VTE?: No VTE Risk Level:: Medical - moderate - high VTE Device Contraindication: N/A - Device Ordered VTE Drug Contraindication: N/A - Med Ordered
[2024-05-02] MEDS: predniSONE 20 MG TABLET PO (18:40)
[2024-05-02] MEDS: Prazosin HCL 1 MG CAPSULE 2 MG PO (20:47)
[2024-05-02] MEDS: Atorvastatin Calcium 80 MG TABLET PO (21:16)
[2024-05-02] MEDS: LORazepam 0.5 MG TABLET PO (21:54)
[2024-05-03] MEDS: oxyCODONE HCl Immed Release 5 MG TABLET PO ×2 (02:50→10:52)
[2024-05-03 03:46] VITALS: RESP 19
[2024-05-03 06:10] VITALS: PULSE 81; RESP 18; O2SAT 98
[2024-05-03] MEDS: Albuterol/Iprat 2.5/0.5MG 3 ML AMPUL.NEB INHALE (06:10)
[2024-05-03] MEDS: Gabapentin 400 MG CAPSULE 1200 MG PO (06:15)
[2024-05-03] MEDS: Baclofen 10 MG TABLET 15 MG PO (06:16)
[2024-05-03] MEDS: OXcarbazepine 300 MG TABLET 600 MG PO (06:17)
[2024-05-03] MEDS: DULoxetine HCl 60 MG CAPSULE.DR PO (06:17)
[2024-05-03 07:40] VITALS: BP 137/66; PULSE 82; RESP 18; TEMP 36.6; O2SAT 92
--- NOTE | 2024-05-03 08:25 | PM.DS ---
DS: Providers Provider Date of Service: 05/03/24 Date of admission: 05/01/24 06:21 Date of discharge: 05/03/24 Primary care physician: Liyah Patterson MD Consults: 05/01/24 08:39 Consult to Wound Care Routine Reason for consultation: wound DS: Diagnosis Discharge Diagnosis (1) COPD exacerbation: Status: Acute DS: Summary Hospital Course Hospital Course: Chief Complaint: Shortness of breath 59-year-old lady with past medical history of COPD on home oxygen, JUANITO on nighttime BiPAP, trigeminal neuralgia, status post mitral wall replacement, hypertension, hyperlipidemia recent hospitalization COPD exacerbation discharged 04/18/2024 presented to the hospital with worsening shortness of breath. Patient has shortness of breath at baseline, it worsened abruptly overnight, no triggers, no fever, associated with cough, exacerbated by activity, not relieved by rest. Admitted to the ICU for rescue BiPAP Hospital course: Patient has chronic respiratory failure due to COPD and is on home O2, history of JUANITO uses BiPAP at home. She presented with acute respiratory failure with acute hypoxia and require rescue BiPAP in the emergency room checks x-ray showed no acute infectious process patient was admitted to the ICU very briefly and was taken off BiPAP and transferred to the floor where she continued to do well has not had any further episode of acute respiratory distress she is continuing on her usual inhalers and also give him prednisone at a low dose of 20 mg. She will be discharged to complete 5 days of prednisone and to follow up with her primary care doctor and her life science teacher. Time Attestation Discharge Coordination Time (in mins): 35 Quality: Safe Use of Opioids Does Pt have an Active Cancer Diagnosis on the Problem List?: No Quality: Stroke Does the patient have a stroke diagnosis?: No Physical Exam Vital Signs: Vital Signs: Last Vital Signs Temp 97.8 F 05/03/24 07:40 Pulse 82 05/03/24 07:40 Resp 18 05/03/24 07:40 BP 137/66 05/03/24 07:40 Pulse Ox 92 05/03/24 07:40 O2 Del Method Room Air 05/03/24 07:40 O2 Flow Rate 2 05/02/24 19:12 FiO2 30 05/01/24 09:00 Oxygen Flow Rate 8.8 05/01/24 08:01 BMI result Body Mass Index 37.9 DS: Data Data Completed and Pending Completed studies during hospitalization [Text1]: Procedures Assistance with Respiratory Ventilation, Less than 24 Consecutive Hours, Continuous Positive Airway Pressure (04/16/24) Labs on day of discharge: Preliminary micro results at discharge 05/01/24 04:16 Blood Culture - Preliminary Blood - Venous No growth after 48 hours. 05/01/24 04:16 Blood Culture - Preliminary Blood - Venous No growth after 48 hours. Discharge Plan Discharge Anticipated Discharge Date/Time: 05/03/24 08:23 Patient Disposition: Home Health Service Discharge Diagnosis: Acute hypoxic respiratory failure, copd exacerbation Referrals: [facility] [Outside] - 1 Day ([facility], PT AND HOME HEALTH) Liyah Patterson MD [Primary Care Provider] - 1 Week Discharge Medications: New prednisone 20 mg Tablet 20 mg PO DAILY Qty: 3 0RF Continued ipratropium-albuterol 0.5 mg-3 mg(2.5 mg base)/3 mL solution for nebulization 3 ml inhalation Q4H PRN (Reason: for dyspnea) Qty: 180 11RF verapamil 120 mg tablet 120 mg PO BID Qty: 60 1RF nicotine (polacrilex) [Nicorette] 4 mg mini lozenge 4 mg buccal Q4-8H PRN (Reason: nicotine cravings) Qty: 81 0RF baclofen 15 mg Tablet 15 mg PO TID MDD 45 Trelegy Ellipta 200-62.5-25 mcg Blister With Device 1 inh INHALATION DAILY atorvastatin 80 mg tablet 80 mg PO BEDTIME hydrocodone-acetaminophen 5-325 mg tablet 1 tab PO BID PRN (Reason: Pain) tlyswdvlse-sszymacibdgah-yqhf 50-325-40 mg tablet 1 tab PO DAILY MRX1 PRN (Reason: Headache) hyoscyamine sulfate 0.125 mg tablet 0.25 mg PO Q6H PRN (Reason: Abdominal Discomfort) gabapentin 300 mg capsule 1,200 mg PO TID oxcarbazepine 600 mg tablet 600 mg PO BID lorazepam 1 mg tablet 0.5 mg PO DAILY PRN (Reason: Anxiety) duloxetine 60 mg capsule,delayed release(DR/EC) 60 mg PO BID aspirin 81 mg Tablet,Delayed Release (Dr/Ec) 81 mg PO DAILY Qty: 90 0RF (DME) nebulizer and compressor Device See Rx Instructions .Route Qty: 1 0RF Rx Instructions: As directed albuterol sulfate 90 mcg/actuation HFA aerosol inhaler 2 puff inhalation Q4H PRN (Reason: Shortness Of Breath Or Wheezing) furosemide 20 mg tablet 20 mg PO DAILY prazosin 2 mg capsule 2 mg PO BEDTIME (DME) Oxygen Home Use Kit See Rx Instructions .Route Rx Instructions: As directed Discharge Orders: Discharge Order (Routine); Ordered 05/03/24 Ordered By: Judah Hu Diet: Advance to usual diet Activity on Discharge: As tolerated Stand Alone Forms: Patient Portal Discharge page Print Language: Turkmen Care Plan Goals: Recovering from acute hypoxic respiratory failure and COPD exacerbation Health Concerns: Acute on chronic respiratory failure due to COPD exacerbation Plan of Treatment: Use inhalers as directed, Take prednisone as directed Avoid smoking Is oxygen as previously arranged Follow-up with your lung doctor and your primary care physician call for appointment Assessment: See above Discharge Date/Time: 05/03/24 10:00
--- NOTE | 2024-05-03 09:04 | MHC.CM.PN ---
PT MEDICALLY CLEARED FOR DC HOME W/[facility] FOR SN/PT/[employer]INESS [employer] & [facility] FOR HOME O2, PT DENIES NEED FOR PORTABLE O2 TANK, PT'S TO BRING IN PORTABLE TANK WHEN HE PICKS PT UP.
[2024-05-03] MEDS: predniSONE 20 MG TABLET PO (09:19)
[2024-05-03] MEDS: Furosemide 20 MG TABLET PO (09:19)
[2024-05-03] MEDS: Aspirin Enteric Coated 81 MG TABLET.DR PO (09:20)
[2024-05-03] MEDS: VerapamiL HCL 120 MG TABLET PO (09:20)
== END 2024-05-03 10:00 | disposition home health service (06) | DRG 720 ==
LOC: HO.ED 06:16 → HO.EDOVER 06:40 → HO.ICU 06:49 → HO.IMC 14:58
PROVIDERS: Internal Medicine Critical Care Medicine; Admitting Provider Registered Nurse Community Health; Emergency Provider Emergency Medicine; PCP Family Medicine; Visit Provider Internal Medicine
DX: A41.9 Sepsis, unspecified organism (principal); J96.21 Acute and chronic respiratory failure with hypoxia; Z99.81 Dependence on supplemental oxygen; E78.5 Hyperlipidemia, unspecified; J96.22 Acute and chronic respiratory failure with hypercapnia; G50.0 Trigeminal neuralgia; J44.1 Chronic obstructive pulmonary disease with (acute) exacerbation; E66.3 Overweight; Z68.37 Body mass index [BMI] 37.0-37.9, adult; Z20.822 Contact with and (suspected) exposure to COVID-19; Z91.199 Patient's noncompliance with other medical treatment and regimen due to unspecified reason; Z87.891 Personal history of nicotine dependence; Z79.899 Other long term (current) drug therapy
CPT/HCPCS: 36415; 71045; 71250; 80048; 80053; 80076; 80307; 81001; 82803; 83605; 83735; 83880; 84100; 84439; 84443; 84484; 85025; 85610; 87040; 87502; 87635; 87640; 87641; 93005; 94640; 99285; J1650; J1940; J2543; J2919; J3370; J3475

== ENCOUNTER → 2024-05-01 04:07 | Outpatient (BNV) | payer BC, SELFPAY | PROVIDERS: Admitting Provider Registered Nurse Community Health; Emergency Provider Emergency Medicine; PCP Family Medicine; Visit Provider Internal Medicine Cardiovascular Disease | DX: R94.31 Abnormal electrocardiogram [ECG] [EKG] (principal) | CPT/HCPCS: 93010 ==

== ENCOUNTER → 2024-05-01 06:21 | Outpatient (BNV) | payer BC, SELFPAY | PROVIDERS: Admitting Provider Registered Nurse Community Health; Emergency Provider Emergency Medicine; PCP Family Medicine; Visit Provider Internal Medicine Critical Care Medicine | DX: J44.1 Chronic obstructive pulmonary disease with (acute) exacerbation (principal); J96.21 Acute and chronic respiratory failure with hypoxia; J96.11 Chronic respiratory failure with hypoxia; I10 Essential (primary) hypertension | CPT/HCPCS: 99223 ==

== ENCOUNTER → 2024-05-01 06:21 | Outpatient (BNV) | payer BC, SELFPAY | PROVIDERS: Admitting Provider Registered Nurse Community Health; Emergency Provider Emergency Medicine; PCP Family Medicine; Visit Provider Internal Medicine | DX: J44.1 Chronic obstructive pulmonary disease with (acute) exacerbation (principal) | CPT/HCPCS: 99232; 99239 ==

== ENCOUNTER 2024-05-19 10:03 | Outpatient (REF) | payer BC, SELFPAY ==
[2024-05-19 10:25] LABS: MANUAL DIFF FLAG NO
[2024-05-19 10:38] LABS: Basophils Percent Auto 0.6 % (0-2); Eosinophils Absolute Auto 0.4 X10*3/uL (0.0-0.4); Eosinophils Percent Auto 5.9 % (0-4); Hematocrit 39.3 % (37.0-47.0); Imm Gran Abs Auto 0.03 X10*3/uL (0.00-0.03); Imm Gran Pct Auto 0.4 % (0.0-0.4); Lymphocytes Absolute Auto 1.2 X10*3/uL (1.2-4.9); Lymphocytes Percent Auto 17.1 % (20-40); Mean Corpuscular HGB Conc 33.1 g/dl (31.0-35.0); Mean Corpuscular Hemoglobin 32.1 pg (27.0-33.0); Mean Platelet Volume 8.8 fL (9.4-12.3); Monocytes Absolute Auto 0.9 X10*3/uL (0.1-1.2); Neutrophils Absolute Auto 4.6 x10*3/uL (2.0-8.3); Platelet Count 347 X10*3/uL (160-400); Red Blood Count 4.05 X10*6/uL (4.20-5.50); Red Cell Distribution Width 13.4 % (11.0-16.0); White Blood Count 7.2 X10*3/uL (4.8-10.8)
[2024-05-19 11:23] LABS: Erythrocyte Sedimentation Rate 7 MM/HR (0-20)
[2024-05-19 11:34] LABS: Anion Gap 12 (12-20); Blood Urea Nitrogen 14 mg/dL (9-16); Calcium 9.8 mg/dL (8.4-10.2); Carbon Dioxide 35 mmol/L (22-29); Chloride 102 mmol/L (96-108); Estimated Glomerular Filt Rate > 60; Glucose Random 108 mg/dL (60-115); Sodium 145 mmol/L (135-145)
[2024-05-22 11:58] LABS: Immunoglobulin G Subclass 1 277 mg/dL (382-929); Immunoglobulin G Subclass 2 42 mg/dL (241-700); Immunoglobulin G Subclass 3 15 mg/dL (22-178); Immunoglobulin G Subclass 4 13.2 mg/dL (4-86); Immunoglobulin G Total 405 mg/dL (600-1540)
[2024-05-22 12:24] LABS: IgA 178 mg/dL (70-320); IgG 436 mg/dL (600-1540); IgM 40 mg/dL (50-300)
[2024-05-24 15:22] LABS: Immunoglobulin E 222 kU/L (<OR=114)
== END 2024-05-19 10:04 | disposition home or self-care (01) ==
LOC: HO.LAB 10:03
PROVIDERS: PCP Registered Nurse; Visit Provider Hospitalist
DX: D80.1 Nonfamilial hypogammaglobulinemia (principal); J45.51 Severe persistent asthma with (acute) exacerbation; J45.909 Unspecified asthma, uncomplicated; T78.40XA Allergy, unspecified, initial encounter
CPT/HCPCS: 36415; 80048; 82784; 82785; 85025; 85652

== ENCOUNTER 2024-05-21 22:27 | Inpatient (IN) | payer BC, MEDICARE, SELFPAY ==
--- NOTE | 2024-05-21 | ECG_ITS ---
Test Reason : SOB Blood Pressure : / mmHG Vent. Rate : 089 BPM Atrial Rate : 089 BPM P-R Int : 132 ms QRS Dur : 092 ms QT Int : 376 ms P-R-T Axes : 063 073 051 degrees QTc Int : 457 ms Normal sinus rhythm Normal ECG When compared with ECG of 01-MAY-2024 04:18, Premature ventricular complexes are no longer Present AK interval has increased Vent. rate has decreased BY 55 BPM Incomplete left bundle branch block is no longer Present Referred By: Generic ED Physician Electronically Signed By:HARRIET ANDRES MD
--- NOTE | ~2024-05-21 | XR_ITS ---
EXAMINATION: XR CHEST CLINICAL INFORMATION: sob COMPARISON: May 01, 2024. TECHNIQUE: Frontal view of the chest was obtained. FINDINGS: The cardiomediastinal silhouette is stable. There is no focal lung consolidation or pleural effusions. The bony structures and the soft tissues are unremarkable. XR/XR chest 1V IMPRESSION: No acute cardiopulmonary process. Electronically signed by: Kevin Hernandez MD 05/22/2024 12:27 AM [facility]
[2024-05-21 22:28] VITALS: BP 142/55; BP 174/85; PULSE 105; PULSE 98; RESP 25; TEMP 36.7; O2SAT 95; BMI 39.2
[2024-05-21 22:41] VITALS: PULSE 95; RESP 18; O2SAT 96
[2024-05-21] MEDS: Albuterol Sulfate 2.5 MG, Albuterol Sulfate (0.083%) 2.5 MG 5 MG INHALE (22:41)
[2024-05-21 22:52] LABS: MANUAL DIFF FLAG NO
[2024-05-21 22:53] LABS: VBG Base Excess 8.3 mmol/L; VBG HCO3 32 mmol/L (22-26); VBG pCO2 44 mmHg; VBG pH 7.47 (7.32-7.43); VBG pO2 150 mmHg
[2024-05-21 22:53] LABS: Basophils Absolute Auto 0.1 X10*3/uL (0.0-0.2); Basophils Percent Auto 0.7 % (0-2); Eosinophils Absolute Auto 0.5 X10*3/uL (0.0-0.4); Eosinophils Percent Auto 5.4 % (0-4); Hematocrit 38.2 % (37.0-47.0); Hemoglobin 12.4 g/dl (12.0-16.0); Imm Gran Abs Auto 0.03 X10*3/uL (0.00-0.03); Imm Gran Pct Auto 0.4 % (0.0-0.4); Lymphocytes Absolute Auto 1.8 X10*3/uL (1.2-4.9); Lymphocytes Percent Auto 21.2 % (20-40); Mean Corpuscular HGB Conc 32.5 g/dl (31.0-35.0); Mean Corpuscular Hemoglobin 31.6 pg (27.0-33.0); Mean Corpuscular Volume 97.4 fL (80.0-98.0); Monocytes Percent Auto 12.3 % (2-11); Platelet Count 341 X10*3/uL (160-400); Red Blood Count 3.92 X10*6/uL (4.20-5.50); Red Cell Distribution Width 13.9 % (11.0-16.0); White Blood Count 8.3 X10*3/uL (4.8-10.8)
[2024-05-21 22:55] LABS: Venous Blood Gas Refer to POC result
--- NOTE | 2024-05-21 23:00 | PC.NURSE ---
pt biba from home, a&ox4, respirations even but labored. pt reports increased shortness of breath, reports attempting to do 6 home duo nebs with no relief, on ems arrival pt 90%on 3L, 2 more duo nebs given. pt 96% on arrival. 20G in left wrist. Respiratory at bedside administering duoneb at this time. labs obtained, pt normal sinus on tele 98-100bpm. pt denies chest pain, n/v/d
[2024-05-21 23:09] LABS: Alanine Aminotransferase 19 U/L (0-31); Alkaline Phosphatase 76 U/L (39-117); Anion Gap 15 (12-20); Aspartate Amino Transferase 28 U/L (5-31); Bilirubin Total 0.2 mg/dL (0.0-1.0); Blood Urea Nitrogen 12 mg/dL (9-16); Calcium 9.4 mg/dL (8.4-10.2); Carbon Dioxide 29 mmol/L (22-29); Chloride 104 mmol/L (96-108); Creatinine Clr Calc Pharmacy 82.4; Estimated Glomerular Filt Rate > 60; Glucose Random 161 mg/dL (60-115); Potassium 3.7 mmol/L (3.3-5.1); Sodium 144 mmol/L (135-145); Total Protein 6.5 g/dL (6.5-8.0)
[2024-05-21 23:15] LABS: Troponin-I High Sensitivity 12.1 ng/L (<3.5-17.0)
[2024-05-21 23:18] LABS: B Type Natriuretic Peptide 56 pg/mL (<100)
[2024-05-21 23:29] LABS: Influenza A PCR NEGATIVE (Negative); Influenza B PCR NEGATIVE (Negative); Resp Syncy Virus RNA Qual PCR NEGATIVE (Negative); SARS COV2 PCR INHOUSE NEGATIVE (Negative)
[2024-05-21] MEDS: methylPREDNISolone Sod Succ 125 MG/2 ML VIAL IVPUSH (23:32)
[2024-05-21] MEDS: Magnesium Sulfate/H2O 2 GM/50 ML PIGGYBACK IV (23:32)
--- NOTE | 2024-05-21 23:52 | PC.NURSE ---
pt medicated per mar, pt sating 88-89% on 3L nasal cannula.
[2024-05-21 23:54] VITALS: O2SAT 88
[2024-05-22] VITALS (14 sets, daily range): BP systolic 116–178; BP diastolic 57–88; PULSE 67–90; RESP 16–21; TEMP 36–36.8; O2SAT 88–97; BMI 39.5; BMI 39.6
--- NOTE | 2024-05-22 00:02 | ED.GENADULT ---
HPI - General Adult General Chief complaint: Dyspnea Stated complaint: diff breathing, on duo neb, hx copd Time Seen by Provider: 05/21/24 22:44 Source: patient, EMS and RN notes reviewed Mode of arrival: EMS Limitations: no limitations History of Present Illness ED Provider: James HPI narrative: 59-year-old female with past medical history significant for COPD on 2 L home oxygen, BiPAP, chart general neuralgia, obesity, mitral valve replacement hypertension, hyperlipidemia presenting for evaluation of shortness of breath. Patient was discharged from this facility on 05/03/24. She did require a short stay in the ICU for emergent BiPAP She reports that she finished a course of prednisone last Wednesday. She reports she has been doing well at home on her baseline oxygen. For the last 2-3 days she reports slightly worsening shortness of breath that got acutely worse today She reports using 6 DuoNebs within a few hours with little to no relief Denies any fevers, chills, pain, leg swelling. Concerns at this time Related Data Home Medications ?Medication ?Instructions ?Recorded ?Confirmed atorvastatin 80 mg tablet 80 mg PO BEDTIME 03/04/23 05/01/24 wdufwelert-xgdtjjvhvfjir-fapbluhj 1 tab PO DAILY MRX1 PRN Headache 03/04/23 05/01/24 50 mg-325 mg-40 mg tablet duloxetine 60 mg capsule,delayed 60 mg PO BID 03/04/23 05/01/24 release gabapentin 300 mg capsule 1,200 mg PO TID 03/04/23 05/01/24 hydrocodone 5 mg-acetaminophen 325 1 tab PO BID PRN Pain 03/04/23 05/01/24 mg tablet hyoscyamine sulfate 0.125 mg tablet 0.25 mg PO Q6H PRN Abdominal 03/04/23 05/01/24 Discomfort lorazepam 1 mg tablet 0.5 mg PO DAILY PRN Anxiety 03/04/23 05/01/24 oxcarbazepine 600 mg tablet 600 mg PO BID 03/04/23 05/01/24 Oxygen Home Use 04/16/23 03/10/24 prazosin 2 mg capsule 2 mg PO BEDTIME 04/16/23 05/01/24 baclofen 15 mg tablet 15 mg PO TID 01/10/24 05/01/24 albuterol sulfate 90 mcg/actuation 2 puff inhalation Q4H PRN 01/31/24 05/01/24 aerosol inhaler Shortness Of Breath Or Wheezing fluticasone fur. 200 mcg-umeclid 1 inh inhalation DAILY 02/14/24 05/01/24 62.5 mcg-vilant 25 mcg inhalat.powder (Trelegy Ellipta) furosemide 20 mg tablet 20 mg PO DAILY 05/01/24 05/01/24 Previous Rx's ?Medication ?Instructions ?Recorded aspirin 81 mg tablet,delayed 81 mg PO DAILY #90 tabs 12/16/23 release nebulizer and compressor #1 ea 12/16/23 ipratropium 0.5 mg-albuterol 3 mg 3 ml inhalation Q4H PRN for 03/02/24 (2.5 mg base)/3 mL nebulization dyspnea #180 mL soln verapamil 120 mg tablet 120 mg PO BID #60 tabs 03/28/24 nicotine (polacrilex) 4 mg buccal 4 mg buccal Q4-8H PRN nicotine 04/26/24 mini lozenge (Nicorette) cravings #81 ea prednisone 20 mg tablet 20 mg PO DAILY #3 tabs 05/03/24 Allergies Allergy/AdvReac Type Severity Reaction Status Date / Time Iodinated Contrast Media Allergy Intermediate HIVES Verified 05/21/24 22:35 [IV CONTRAST] latex [LATEX] Allergy Unknown RASH Verified 05/21/24 22:35 morphine [MORPHINE] AdvReac Unknown VOMITING Verified 05/21/24 22:35 Review of Systems Constitutional: Constitutional: Denies body ache(s), Denies chills, Denies fever(s) and Denies headache(s) Eyes: Eyes: Denies blurry vision ENT: Denies vertigo, Denies dizziness and Denies headache(s) Cardiovascular: Cardiovascular: Denies chest pain and Reports dyspnea Respiratory: Respiratory: Reports dyspnea and Reports wheezing Gastrointestinal: Gastrointestinal: Denies abdominal pain, Denies nausea and Denies vomiting Musculoskeletal: Musculoskeletal: Denies back pain Integumentary/Breasts: Skin/Breast: Denies rash Neurologic: Denies vertigo, Denies dizziness and Denies headache(s) Psychiatric: Psychiatric: Denies anxiety and Denies depression Allergic/Immunologic: Allergic/Immunologic: Reports wheezing PMFSH Past Medical History Medical History Chronic lung disease Hypogammaglobulinemia Smoker JUANITO (obstructive sleep apnea) Allergies Hypertension Elevated troponin COPD (chronic obstructive pulmonary disease) Chronic hypercapnic respiratory failure Trigeminal neuralgia Pulmonary nodules Mixed hyperlipidemia Peripheral neuropathy Tobacco use disorder Mood disorder Surgical History History of esophagogastroduodenoscopy (EGD) History of colonoscopy History of lumbar discectomy History of tubal ligation History of excision of mass History of shoulder surgery Social History Social History Household Members: Spouse Housing: House Do you presently have visiting nurse or other home services: Yes Alcohol intake: former Comment: refusing bed alarm Patient Tobacco Use Status: Former Tobacco user Tobacco use type: Cigarette Cigarette Packs Per Day: 4 Cigarettes Per Day: 80.0 Years Smoked: 40 Smoked in Last 30 Days: Yes e-Cigarette/Vaping Use: Former Use Second Hand Smoke Exposure: No Use of substances other than those prescribed or required for medical reasons: No Substance Use Type: Marijuana Advance Directives: Yes Advance Directives on File: Yes Advance Directives Date on File: 03/09/23 Do you have a plan to hurt others: No Plan Patient : No service: No Physical Exam ED Vital Signs: Vital Signs - 24 hr 05/21/24 22:28 05/21/24 22:41 05/21/24 23:54 Temperature 98.0 F Pulse Rate 105 H 95 Respiratory Rate 25 H 18 Blood Pressure 142/55 H Pulse Oximetry 95 88 L Oxygen Delivery Method Nasal Cannula Oxygen Flow Rate 3 BMI result Body Mass Index 39.2 Const General: healthy appearing, comfortable, no acute distress, alert and awake Nutritional Appearance: well nourished Orientation/consciousness: patient oriented x3 HENMT Head: Yes normocephalic and Yes atraumatic Eyes Eyelids: Yes eyelids normal Conjunctivae: conjunctivae normal Sclerae: sclerae normal Corneas: corneas normal Pupils: Equal, round and reactive pupils present EOM: EOMs intact bilaterally Neck Neck: Yes full ROM Resp Other: Increased respiratory effort. There is faint wheezing throughout but diminished breath sounds throughout. The patient is using accessory muscles Cardio Rate: regular rate Rhythm: regular rhythm GI Inspection: No distended Palpation (GI): Soft to palpation, not firm, nontender, no guarding and not rigid Skin General skin exam: elasticity normal Neuro General: patient oriented x3 Cranial nerves: Yes Equal, round and reactive pupils present and Yes Bilaterally intact EOM present Cognition (Neuro): normal cognition Extrem Other: Moving all extremities well without any obvious deformities Medications Administered Discontinued Medications Generic Name Dose Route Start Last Admin Trade Name Katya PRN Reason Stop Dose Admin Albuterol Sulfate 2.5 mg/ 5 mg 05/21/24 22:39 05/21/24 22:41 Albuterol Sulfate 2.5 mg INHALE 05/21/24 22:40 5 mg ONCE ONE Administration Magnesium Sulfate 2 gm in 50 mls @ 150 mls/hr 05/21/24 23:23 05/22/24 00:04 Magnesium Sulfate/H2o IV 05/21/24 23:42 Infused ONCE ONE Infusion Methylprednisolone Sodium Succinate 125 mg 05/21/24 23:23 05/21/24 23:32 Methylprednisolone Sod Succ 125 Mg/2 Ml Vial IVPUSH 05/21/24 23:24 125 mg ONCE ONE Administration Medical Decision Making Medical Decision Making [facility] Narrative: 59-year-old female presents for evaluation of shortness of breath, she has a longstanding history of COPD, plan for labs, chest x-ray. She is afebrile, she has no leukocytosis to suggest infectious cause. This is likely a COPD exacerbation. The patient gave herself 6 DuoNebs prior to arrival, she got to via EMS and she going to 5 mg albuterol treatment on arrival to the ED. I ordered Solu-Medrol, magnesium azithromycin to treat acute COPD exacerbation. The patient is on 3 L which is above her baseline in his starting about 88%. Will discuss with the hospitalist for admission Differential Diagnosis Differential Diagnoses: The differential diagnosis associated with the presentation includes COPD exacerbation Viral syndrome Pneumonia Bronchitis CHF Admission/Observation Consideration of admission/observation: Escalation of care including admission/observation considered Lab Data [facility] Lab Attestation statement: I reviewed the patient's lab results. No leukocytosis or anemia. Normal platelet count. No electrolyte abnormalities. Renal function normal limits, random glucose elevated to 161 05/21/24 22:44 05/21/24 22:44 Labs: Lab Results 05/21/24 05/21/24 Range/Units 22:44 22:49 WBC 8.3 (4.8-10.8) X10*3/uL RBC 3.92 L (4.20-5.50) X10*6/uL Hgb 12.4 (12.0-16.0) g/dl Hct 38.2 (37.0-47.0) % MCV 97.4 (80.0-98.0) fL MCH 31.6 (27.0-33.0) pg MCHC 32.5 (31.0-35.0) g/dl RDW 13.9 (11.0-16.0) % Plt Count 341 (160-400) X10*3/uL MPV 9.0 L (9.4-12.3) fL Immature Gran % (Auto) 0.4 (0.0-0.4) % Neut % (Auto) 60.0 (45-73) % Lymph % (Auto) 21.2 (20-40) % Custer % (Auto) 12.3 H (2-11) % Eos % (Auto) 5.4 H (0-4) % Baso % (Auto) 0.7 (0-2) % Lymph # (Auto) 1.8 (1.2-4.9) X10*3/uL [place] # (Auto) 1.0 (0.1-1.2) X10*3/uL Eos # (Auto) 0.5 H (0.0-0.4) X10*3/uL Baso # (Auto) 0.1 (0.0-0.2) X10*3/uL Abs Immat Gran (auto) 0.03 (0.00-0.03) X10*3/uL Absolute Neuts (auto) 5.0 (2.0-8.3) x10*3/uL Absolute Nucleated RBC 0.000 (0.0-0.012) X10*3/uL Nucleated RBC % (auto) 0.0 (0.0-0.2) /100WBC VBG pH 7.47 H (7.32-7.43) VBG pCO2 44 mmHg VBG pO2 150 mmHg VBG HCO3 32 H (22-26) mmol/L VBG O2 Saturation 100.0 % VBG Base Excess 8.3 mmol/L Sodium 144 (135-145) mmol/L Potassium 3.7 (3.3-5.1) mmol/L Chloride 104 (96-108) mmol/L Carbon Dioxide 29 (22-29) mmol/L Anion Gap 15 (12-20) BUN 12 (9-16) mg/dL Creatinine 0.75 (0.5-1.4) mg/dL Estim Creat Clear Calc 82.4 Estimated GFR > 60 Random Glucose 161 H (60-115) mg/dL Calcium 9.4 (8.4-10.2) mg/dL Total Bilirubin 0.2 (0.0-1.0) mg/dL AST 28 (5-31) U/L ALT 19 (0-31) U/L Alkaline Phosphatase 76 (39-117) U/L Troponin I High Sens 12.1 (<3.5-17.0) ng/L B-Natriuretic Peptide 56 (<100) pg/mL Total Protein 6.5 (6.5-8.0) g/dL Albumin 4.0 (3.5-5.0) g/dL Influenza Type A (PCR) NEGATIVE (Negative) Influenza Type B (PCR) NEGATIVE (Negative) RSV RNA Qual (PCR) NEGATIVE (Negative) SARS-CoV-2 RNA (RT-PCR) NEGATIVE (Negative) Independent Interpretation I performed an independent interpretation of an: EKG (Normal sinus rhythm with a rate of 89 beats per minute. No ST segment elevations or depressions) and Plain X-Ray (No focal consolidation or pleural effusion) Discharge Plan Discharge Clinical Impression: COPD exacerbation Patient Disposition: Admitted As Inpatient Print Language: Cymro
--- NOTE | 2024-05-22 00:15 | MHC.EDTECH ---
This tech took over care of pt at 2300,rounded and introduced self to pt,blood cultures and lactic drawn and sent to lab,pure wick placed to keep pt clean and dry,pt tolerated well,call dumont in reach
[2024-05-22] MEDS: 0.9 % Sodium Chloride 500 ML 999 ML IV (00:36)
[2024-05-22] MEDS: Azithromycin 500 MG in 0.9 % Sodium Chloride 250 ML 125 MG IV ×2 (00:36→21:10)
--- NOTE | 2024-05-22 00:56 | PC.NURSE ---
22G placed in right hand, labs obtained, 500ml bolus administered, antibiotics hanging.
[2024-05-22 00:57] LABS: Lactic Acid 1.3 mmol/L (0.5-2.0)
--- NOTE | 2024-05-22 01:39 | P.HPHOSP_ITS ---
History of Present Illness Date of Service: 05/22/24 Attending physician on admission: Desiree Peoples Chief Complaint: SOB, wheezing 59yo F with chronic hypoxia on 3-4L O2 due to COPD with hx of intubation and brief ICU stay 05/01/24 discharged home 05/03/24 , HTN, HLD, hx CVA, trigeminal/occipital neuralgia, and mood disorder, who presented to the ED with increasing shortness of breath and wheezing for the past day. She reports that she is used to DuoNebs at home without any relief. She finished a recent course of prednisone 1 week ago. When EMS arrived patient was 90% on 2 L and given 2 DuoNebs with improvement to 96% on 6 L. she denies any runny nose, congestion, fever, chills, nausea, vomiting or increased lower extremity edema. She reports who she was recently diagnosed with lower extremity edema and has been taking Lasix 20 mg daily. She denies any recent sick contacts. She also reports a dry cough. Review of Systems 2 Constitutional: Constitutional: Denies chills, Denies fatigue, Denies fever(s) and Denies headache(s) Eyes: Eyes: Denies change in vision ENT: Denies headache(s), Denies nasal congestion, Denies nasal discharge and Denies sore throat Cardiovascular: Cardiovascular: Denies chest pain, Denies rapid heart rate, Denies leg edema and Reports dyspnea Respiratory: Respiratory: Denies chest congestion, Reports cough, Reports dyspnea and Reports wheezing Gastrointestinal: Gastrointestinal: Denies abdominal pain, Denies constipation, Denies diarrhea, Denies nausea and Denies vomiting Genitourinary: Genitourinary: Denies dysuria and Denies urinary urgency Musculoskeletal: Musculoskeletal: Denies myalgias Integumentary/Breasts: Skin/Breast: Denies rash Neurologic: Denies confusion and Denies headache(s) Psychiatric: Psychiatric: Denies confusion Endocrine: Endocrine: Denies fatigue Hematologic/Lymphatic: Hematologic/Lymphatic: Denies easy bleeding Allergic/Immunologic: Allergic/Immunologic: Reports wheezing [facility] Medical History Chronic lung disease Hypogammaglobulinemia Smoker JUANITO (obstructive sleep apnea) Allergies Hypertension Elevated troponin COPD (chronic obstructive pulmonary disease) Chronic hypercapnic respiratory failure Trigeminal neuralgia Pulmonary nodules Mixed hyperlipidemia Peripheral neuropathy Tobacco use disorder Mood disorder Surgical History History of esophagogastroduodenoscopy (EGD) History of colonoscopy History of lumbar discectomy History of tubal ligation History of excision of mass History of shoulder surgery Social History Household Members: Spouse Housing: House Do you presently have visiting nurse or other home services: Yes Alcohol intake: former Comment: refusing bed alarm Patient Tobacco Use Status: Former Tobacco user Tobacco use type: Cigarette Cigarette Packs Per Day: 4 Cigarettes Per Day: 80.0 Years Smoked: 40 Smoked in Last 30 Days: Yes e-Cigarette/Vaping Use: Former Use Second Hand Smoke Exposure: No Use of substances other than those prescribed or required for medical reasons: No Substance Use Type: Marijuana Advance Directives: Yes Advance Directives on File: Yes Advance Directives Date on File: 03/09/23 Do you have a plan to hurt others: No Plan Patient : No service: No Narrative: quit smoking 1 month ago. occasional marijuana edibles, rare etoh. no illicit drug use. Meds Allergies Allergy/AdvReac Type Severity Reaction Status Date / Time Iodinated Contrast Media Allergy Intermediate HIVES Verified 05/21/24 22:35 [IV CONTRAST] latex [LATEX] Allergy Unknown RASH Verified 05/21/24 22:35 morphine [MORPHINE] AdvReac Unknown VOMITING Verified 05/21/24 22:35 Active Medications: Current Medications Acetaminophen (Acetaminophen 325 Mg Tablet) 975 mg PO Q6H PRN PRN Reason: Pain, Mild (Pain Scale 1-3), fever or headache Albuterol/Ipratropium (Albuterol/Iprat 2.5/0.5mg 3 Ml Ampul.Neb) 3 ml INHALE RQ4H WHILE AWAKE [place] Calcium Carbonate (Calcium Carbonate 750 Mg Tab.Chew) 750 mg PO Q4H PRN PRN Reason: Heartburn Enoxaparin Sodium (Enoxaparin Sodium 40 Mg/0.4 Ml Syringe) 40 mg SUBCUT Q24H [place] Azithromycin 500 mg/ Sodium (Chloride) 250 mls @ 125 mls/hr IV ONCE ONE Stop: 05/22/24 02:06 Last Admin: 05/22/24 00:36 Dose: 125 mls/hr Azithromycin 500 mg/ Sodium (Chloride) 250 mls @ 125 mls/hr IV Q24H COUNT INCLUDES THE [facility] Magnesium Hydroxide (Milk Of Magnesia 30 Ml Oral.Susp) 30 ml PO DAILY PRN PRN Reason: Constipation Melatonin (Melatonin 3 Mg Tablet) 6 mg PO BEDTIME PRN PRN Reason: Insomnia Methylprednisolone Sodium Succinate (Methylprednisolone Sod Succ 40 Mg/Ml Vial) 40 mg IVPUSH BID [place] Ondansetron HCl (Ondansetron Hcl 4 Mg/2 Ml Vial) 4 mg IVPUSH Q8H PRN PRN Reason: Nausea and Vomiting Oxycodone HCl (Oxycodone Hcl Immed Release 5 Mg Tablet) 5 mg PO Q6H PRN PRN Reason: Pain, Moderate(Pain Scale 4-6) Sodium Chloride (0.9 % Sodium Chloride Flush 3 Ml Syringe) 3 ml IVFLUSH QSHIFT COUNT INCLUDES THE [facility] Home Medications ?Medication ?Instructions ?Recorded ?Confirmed ?Last Taken ?Type atorvastatin 80 mg tablet 80 mg PO BEDTIME 03/04/23 05/01/24 04/15/24 History [id number] 1 tab PO DAILY MRX1 PRN Headache 03/04/23 05/01/24 1 Day Ago History 50 mg-325 mg-40 mg tablet ~01/16/24 duloxetine 60 mg capsule,delayed 60 mg PO BID 03/04/23 05/01/24 04/15/24 History release gabapentin 300 mg capsule 1,200 mg PO TID 03/04/23 05/01/24 04/15/24 14:00 History hydrocodone 5 mg-acetaminophen 325 1 tab PO BID PRN Pain 03/04/23 05/01/24 04/14/24 History mg tablet hyoscyamine sulfate 0.125 mg tablet 0.25 mg PO Q6H PRN Abdominal 03/04/23 05/01/24 04/14/24 History Discomfort lorazepam 1 mg tablet 0.5 mg PO DAILY PRN Anxiety 03/04/23 05/01/24 04/14/24 History oxcarbazepine 600 mg tablet 600 mg PO BID 03/04/23 05/01/24 04/15/24 History 0800 Oxygen Home Use 04/16/23 03/10/24 03/10/24 History prazosin 2 mg capsule 2 mg PO BEDTIME 04/16/23 05/01/24 04/14/24 History baclofen 15 mg tablet 15 mg PO TID 01/10/24 05/01/24 04/15/24 08:00 History albuterol sulfate 90 mcg/actuation 2 puff inhalation Q4H PRN 01/31/24 05/01/24 03/10/24 History aerosol inhaler Shortness Of Breath Or Wheezing fluticasone fur. 200 mcg-umeclid 1 inh inhalation DAILY 02/14/24 05/01/24 04/15/24 History 62.5 mcg-vilant 25 mcg inhalat.powder (Trelegy Ellipta) furosemide 20 mg tablet 20 mg PO DAILY 05/01/24 05/01/24 Unknown History Physical Exam 2 Vital Signs and Narrative: Vital Signs: Last Vital Signs Temp 98.2 F 05/22/24 00:14 Pulse 75 05/22/24 00:14 Resp 21 H 05/22/24 00:14 BP 116/60 05/22/24 00:14 Pulse Ox 88 L 05/22/24 00:14 O2 Del Method Nasal Cannula 05/22/24 00:14 O2 Flow Rate 3 05/22/24 00:14 Oxygen Flow Rate 8 05/21/24 22:28 BMI result Body Mass Index 39.2 General: AOx3, no acute distress Resp: mild wheezing with inspiration and expiration CVS: RRR, +murmur GI: +BS, NT, no distention Skin: Warm, dry Neuro: Cranial nerves II-XII grossly intact bilaterally. Motor grossly intact bilaterally Extremities: trace pitting edema Psych: Appropriate affect Const: General: No confusion Orientation/consciousness: No confusion Neuro: General: No confusion Results Labs 05/21/24 22:44 05/21/24 22:44 Labs: Laboratory Results - last 24 hr 05/21/24 05/21/24 05/22/24 22:44 22:49 00:31 MCV 97.4 MCH 31.6 MCHC 32.5 RDW 13.9 Plt Count 341 MPV 9.0 L Immature Gran % (Auto) 0.4 Neut % (Auto) 60.0 Lymph % (Auto) 21.2 [place] % (Auto) 12.3 H Eos % (Auto) 5.4 H Baso % (Auto) 0.7 Lymph # (Auto) 1.8 [place] # (Auto) 1.0 Eos # (Auto) 0.5 H Baso # (Auto) 0.1 Abs Immat Gran (auto) 0.03 Absolute Neuts (auto) 5.0 Absolute Nucleated RBC 0.000 Nucleated RBC % (auto) 0.0 VBG pH 7.47 H VBG pCO2 44 VBG pO2 150 VBG HCO3 32 H VBG O2 Saturation 100.0 VBG Base Excess 8.3 Anion Gap 15 Estim Creat Clear Calc 82.4 Estimated GFR > 60 Random Glucose 161 H Lactic Acid 1.3 Calcium 9.4 Total Bilirubin 0.2 AST 28 ALT 19 Alkaline Phosphatase 76 Troponin I High Sens 12.1 B-Natriuretic Peptide 56 Total Protein 6.5 Albumin 4.0 Influenza Type A (PCR) NEGATIVE Influenza Type B (PCR) NEGATIVE RSV RNA Qual (PCR) NEGATIVE SARS-CoV-2 RNA (RT-PCR) NEGATIVE Imaging Radiologist's Impressions: Impressions Chest X-Ray 05/21/24 23:10 IMPRESSION: No acute cardiopulmonary process. Electronically signed by: Kevin Hernandez MD 05/22/2024 12:27 AM [facility] Assessment and Plan (1) Acute and chronic respiratory failure with hypoxia: Status: Resolved (2) COPD exacerbation: Status: Acute (3) Obesity (BMI 30-39.9): Status: Chronic Plan 59yo F with chronic hypoxia on 3-4L O2 due to COPD with hx of intubation and brief ICU stay 05/01/24 discharged home 05/03/24 , HTN, HLD, hx CVA, trigeminal/occipital neuralgia, and mood disorder, who presented to the ED with increasing shortness of breath and wheezing for the past day. Requiring additional oxygen in ED. Acute on chronic hypoxic respiratory failure secondary to COPD exacerbation - chest x-ray negative - no leukocytosis, or fever. lactic acid normal. blood cultures pending, no sepsis. - 1 episode of tachycardia on arrival, likely due to duoneb - COVID/flu/RSV negative - BNP normal - given IV Mag, Solu-Medrol and azithromycin in ED - continue Solu-Medrol 40 mg b.i.d. and azithromycin 500 mg q.d. - monitor CBC and BMP HTN - continue amlodipine HLD/History CVA - continue ASA, statin Trigeminal neuralgia - continue baclofen, gabapentin, oxcarbazepine Mood disorder - continue duloxetine and prazosin Obesity class 2 - BMI 39.2 - weight loss encouraged HFpEF - no evidence of pulmonary congestion or edema - continue Lasix JUANITO - previously on bipap for sleep, pt refuses as it triggers trigeminal neuralgia Full code VTE prophylaxis: Lovenox Patient with acute on chronic hypoxic respiratory failure due to COPD exacerbation requiring additional oxygen supplementation, IV steroids and breathing treatments for at least 2 midnights stay. Quality Stroke Does the patient have a stroke diagnosis?: No VTE Prior VTE?: No VTE Risk Level:: Medical - moderate - high VTE Device Contraindication: Treatment Not Indicated VTE Drug Contraindication: N/A - Med Ordered
[2024-05-22] MEDS: Albuterol/Iprat 2.5/0.5MG 3 ML AMPUL.NEB INHALE ×5 (02:09→20:05)
--- NOTE | 2024-05-22 04:10 | MHC.EDTECH ---
Hourly rounds and vitals completed,emptied 700MLS of yellow urine from canister,patient was repositioned to comfort,call dumont in reach
[2024-05-22 04:24] LABS: Basophils Percent Auto 0.4 % (0-2); Eosinophils Percent Auto 0.3 % (0-4); Hematocrit 39.3 % (37.0-47.0); Hemoglobin 12.6 g/dl (12.0-16.0); Imm Gran Abs Auto 0.03 X10*3/uL (0.00-0.03); Imm Gran Pct Auto 0.4 % (0.0-0.4); Lymphocytes Absolute Auto 0.4 X10*3/uL (1.2-4.9); Lymphocytes Percent Auto 5.6 % (20-40); MANUAL DIFF FLAG SCAN; Mean Corpuscular HGB Conc 32.1 g/dl (31.0-35.0); Mean Corpuscular Hemoglobin 32.1 pg (27.0-33.0); Mean Corpuscular Volume 100.3 fL (80.0-98.0); Mean Platelet Volume 8.8 fL (9.4-12.3); Monocytes Absolute Auto 0.1 X10*3/uL (0.1-1.2); Monocytes Percent Auto 1.4 % (2-11); Neutrophils Absolute Auto 7.2 x10*3/uL (2.0-8.3); Neutrophils Percent Auto 91.9 % (45-73); Platelet Count 318 X10*3/uL (160-400); Red Blood Count 3.92 X10*6/uL (4.20-5.50); Red Cell Distribution Width 13.5 % (11.0-16.0); SCAN SMEAR FLAG 1; White Blood Count 7.8 X10*3/uL (4.8-10.8)
[2024-05-22 04:35] LABS: Anion Gap 13 (12-20); Blood Urea Nitrogen 13 mg/dL (9-16); Carbon Dioxide 28 mmol/L (22-29); Chloride 106 mmol/L (96-108); Creatinine Clr Calc Pharmacy 74.5; Estimated Glomerular Filt Rate > 60; Glucose Random 174 mg/dL (60-115); Sodium 143 mmol/L (135-145)
[2024-05-22 04:50] LABS: SLIDE REVIEW VERIFIED
--- NOTE | 2024-05-22 07:42 | PC.NURSE ---
Pt set up for breakfast and tolerating well. Pharmacy called for med rec and states they are working on it at this time. Pt reports chronic pain to face and posterior head at this time. No visible SOB, recieved updraft this AM. sat 93% on 2lpm
--- NOTE | 2024-05-22 08:11 | PHA.MEDREC ---
Pharmacy Consult ? Medication Reconciliation Pharmacy has completed the medication reconciliation. Spoke with patient at bedside, she stated none of her meds had changed from last admission, except she completed the prednisone she was prescribed and now takes 1mg of Lorazepam prn Daily. Was able to confirm all her meds and stated she prefers to take her morning meds at 0500 and evening/bedtime at 2000. Changed accordingly.
--- NOTE | 2024-05-22 09:29 | P.EN_ITS ---
Event Note Date of Service: 05/22/24 Event Note: Admited this morning, seen and examined, vitals, meds, imaging reviewed. No new issues, breathing is better 59yo F with chronic hypoxia on 3-4L O2 due to COPD with hx of intubation and brief ICU stay 05/01/24 discharged home 05/03/24 , HTN, HLD, hx CVA, trigemina l/occipital neuralgia, and mood disorder, who presented to the ED with increasing shortness of breath and wheezing for the past day. Requiring additional oxygen in ED. Acute on chronic hypoxic respiratory failure secondary to COPD exacerbation - chest x-ray negative - no leukocytosis, or fever. lactic acid normal. blood cultures pending, no sepsis. - 1 episode of tachycardia on arrival, likely due to duoneb - COVID/flu/RSV negative - BNP normal - given IV Mag, Solu-Medrol and azithromycin in ED - continue Solu-Medrol 40 mg b.i.d. and azithromycin x 5 days - monitor CBC and BMP HTN - continue Verapamil HLD/History CVA - continue ASA, statin Trigeminal neuralgia - continue baclofen, gabapentin, oxcarbazepine Mood disorder - continue duloxetine and prazosin Obesity class 2 - BMI 39.2 - weight loss encouraged HFpEF - no evidence of pulmonary congestion or edema - continue Lasix JUANITO - previously on bipap for sleep, pt refuses as it triggers trigeminal neuralgia Full code VTE prophylaxis: Lovenox med rec completed Time Spent With Patient Time: Total time managing care of this patient today ____ minutes.
[2024-05-22] MEDS: methylPREDNISolone Sod Succ 40 MG/ML VIAL IVPUSH ×2 (10:19→20:48)
[2024-05-22] MEDS: 0.9 % Sodium Chloride Flush 3 ML SYRINGE IVFLUSH ×3 (10:19→21:04)
[2024-05-22] MEDS: Gabapentin 400 MG CAPSULE 1200 MG PO ×2 (10:44→20:58)
[2024-05-22] MEDS: OXcarbazepine 300 MG TABLET 600 MG PO ×2 (10:44→20:47)
[2024-05-22] MEDS: oxyCODONE HCl Immed Release 5 MG TABLET PO ×2 (10:45→23:46)
[2024-05-22] MEDS: VerapamiL HCL 120 MG TABLET PO ×2 (10:47→20:48)
[2024-05-22] MEDS: DULoxetine HCl 60 MG CAPSULE.DR PO ×2 (11:04→20:58)
[2024-05-22] MEDS: Baclofen 10 MG TABLET 15 MG PO ×2 (11:05→20:45)
[2024-05-22] MEDS: Fluticasone/Umeclidinium/Vilanterol 200/62.5/25 BLST.W.DEV 1 PUFF INHALE (11:50)
--- NOTE | 2024-05-22 14:55 | MHC.CM.PN ---
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
[2024-05-22] MEDS: Atorvastatin Calcium 80 MG TABLET PO (20:45)
[2024-05-22] MEDS: Prazosin HCL 1 MG CAPSULE 2 MG PO (20:47)
[2024-05-23] VITALS (7 sets, daily range): BP systolic 145–185; BP diastolic 60–77; PULSE 74–86; RESP 16–18; TEMP 36.1–36.2; O2SAT 92–96
[2024-05-23] MEDS: Furosemide 20 MG TABLET PO (05:25)
[2024-05-23] MEDS: Aspirin Enteric Coated 81 MG TABLET.DR PO (05:25)
[2024-05-23] MEDS: Baclofen 10 MG TABLET 15 MG PO ×2 (05:26→12:58)
[2024-05-23] MEDS: Gabapentin 400 MG CAPSULE 1200 MG PO ×2 (05:26→12:58)
[2024-05-23] MEDS: DULoxetine HCl 60 MG CAPSULE.DR PO (05:27)
[2024-05-23] MEDS: VerapamiL HCL 120 MG TABLET PO (05:28)
[2024-05-23] MEDS: OXcarbazepine 300 MG TABLET 600 MG PO (05:28)
[2024-05-23] MEDS: Albuterol/Iprat 2.5/0.5MG 3 ML AMPUL.NEB INHALE ×2 (06:21→11:46)
[2024-05-23] MEDS: oxyCODONE HCl Immed Release 5 MG TABLET PO (06:33)
[2024-05-23 07:46] LABS: MANUAL DIFF FLAG NO
[2024-05-23 07:52] LABS: Basophils Percent Auto 0.2 % (0-2); Hematocrit 38.9 % (37.0-47.0); Hemoglobin 12.5 g/dl (12.0-16.0); Imm Gran Abs Auto 0.07 X10*3/uL (0.00-0.03); Imm Gran Pct Auto 0.6 % (0.0-0.4); Lymphocytes Absolute Auto 1.1 X10*3/uL (1.2-4.9); Lymphocytes Percent Auto 9.2 % (20-40); Mean Corpuscular HGB Conc 32.1 g/dl (31.0-35.0); Mean Corpuscular Hemoglobin 31.5 pg (27.0-33.0); Mean Platelet Volume 9.3 fL (9.4-12.3); Monocytes Absolute Auto 0.9 X10*3/uL (0.1-1.2); Monocytes Percent Auto 7.8 % (2-11); Neutrophils Absolute Auto 9.7 x10*3/uL (2.0-8.3); Neutrophils Percent Auto 82.2 % (45-73); Platelet Count 367 X10*3/uL (160-400); Red Blood Count 3.97 X10*6/uL (4.20-5.50); Red Cell Distribution Width 13.7 % (11.0-16.0); White Blood Count 11.7 X10*3/uL (4.8-10.8)
[2024-05-23] MEDS: Fluticasone/Umeclidinium/Vilanterol 200/62.5/25 BLST.W.DEV 1 PUFF INHALE (08:16)
[2024-05-23 08:25] LABS: Anion Gap 16 (12-20); Blood Urea Nitrogen 12 mg/dL (9-16); Calcium 9.2 mg/dL (8.4-10.2); Carbon Dioxide 24 mmol/L (22-29); Chloride 108 mmol/L (96-108); Creatinine Clr Calc Pharmacy 77.8; Estimated Glomerular Filt Rate > 60; Glucose Random 155 mg/dL (60-115); Potassium 3.7 mmol/L (3.3-5.1); Sodium 144 mmol/L (135-145)
[2024-05-23] MEDS: methylPREDNISolone Sod Succ 40 MG/ML VIAL IVPUSH (09:32)
[2024-05-23] MEDS: 0.9 % Sodium Chloride Flush 3 ML SYRINGE IVFLUSH (09:38)
--- NOTE | 2024-05-23 11:04 | PM.DS ---
DS: Providers Provider Date of Service: 05/23/24 Date of admission: 05/22/24 01:30 Date of discharge: 05/23/24 Primary care physician: ESTEBAN Christianson DS: Diagnosis Discharge Diagnosis (1) Acute and chronic respiratory failure with hypoxia: Status: Resolved (2) COPD exacerbation: Status: Resolved (3) Obesity (BMI 30-39.9): Status: Chronic DS: Summary Hospital Course Hospital Course: admission hpi Chief Complaint: SOB, wheezing 59yo F with chronic hypoxia on 3-4L O2 due to COPD with hx of intubation and brief ICU stay 05/01/24 discharged home 05/03/24 , HTN, HLD, hx CVA, trigeminal/occipital neuralgia, and mood disorder, who presented to the ED with increasing shortness of breath and wheezing for the past day. She reports that she is used to DuoNebs at home without any relief. She finished a recent course of prednisone 1 week ago. When EMS arrived patient was 90% on 2 L and given 2 DuoNebs with improvement to 96% on 6 L. she denies any runny nose, congestion, fever, chills, nausea, vomiting or increased lower extremity edema. She reports who she was recently diagnosed with lower extremity edema and has been taking Lasix 20 mg daily. She denies any recent sick contacts. She also reports a dry cough. Time Attestation Discharge Coordination Time (in mins): 35 Quality: Safe Use of Opioids Does Pt have an Active Cancer Diagnosis on the Problem List?: No Quality: Stroke Does the patient have a stroke diagnosis?: No Physical Exam Vital Signs: Vital Signs: Last Vital Signs Temp 96.9 F 05/23/24 07:26 Pulse 86 05/23/24 08:17 Resp 18 05/23/24 08:17 BP 145/60 H 05/23/24 07:26 Pulse Ox 92 05/23/24 07:26 O2 Del Method Nasal Cannula 05/23/24 07:26 O2 Flow Rate 1 05/23/24 07:26 Oxygen Flow Rate 8 05/21/24 22:28 BMI result Body Mass Index 39.6 DS: Data Data Completed and Pending Completed studies during hospitalization [Text1]: Procedures Assistance with Respiratory Ventilation, Less than 24 Consecutive Hours, Continuous Positive Airway Pressure (05/01/24) Labs on day of discharge: Laboratory Results - last 24 hr 05/23/24 06:26 WBC 11.7 H RBC 3.97 L Hgb 12.5 Hct 38.9 MCV 98.0 MCH 31.5 MCHC 32.1 RDW 13.7 Plt Count 367 MPV 9.3 L Immature Gran % (Auto) 0.6 H Neut % (Auto) 82.2 H Lymph % (Auto) 9.2 L [place] % (Auto) 7.8 Eos % (Auto) 0.0 Baso % (Auto) 0.2 Lymph # (Auto) 1.1 L [place] # (Auto) 0.9 Eos # (Auto) 0.0 Baso # (Auto) 0.0 Abs Immat Gran (auto) 0.07 H Absolute Neuts (auto) 9.7 H Absolute Nucleated RBC 0.000 Nucleated RBC % (auto) 0.0 Sodium 144 Potassium 3.7 Chloride 108 Carbon Dioxide 24 Anion Gap 16 BUN 12 Creatinine 0.80 Estim Creat Clear Calc 77.8 Estimated GFR > 60 Random Glucose 155 H Calcium 9.2 Preliminary micro results at discharge 05/22/24 00:33 Blood Culture - Preliminary Blood - Venous No growth after 24 hours. 05/22/24 00:30 Blood Culture - Preliminary Blood - Venous No growth after 24 hours. Discharge Plan Discharge Anticipated Discharge Date/Time: 05/23/24 11:13 Patient Disposition: Home Health Service Discharge Diagnosis: Acute on chronic hypoxic respiratory failure due to copd exacerbation Referrals: [facility] [Outside] - 3-5 Days ([facility] will call you to resume correction visits) Sirisha Huertas FNP-RENETTA [Primary Care Provider] - 1 Week Denys Henriquez MD [Physician] - 05/25/24 Discharge Medications: New azithromycin 250 mg tablet 250 mg PO DAILY 3 Days Qty: 3 0RF Rx Instructions: start on day 2 of therapy prednisone 20 mg tablet 40 mg PO DAILY Qty: 6 0RF Continued ipratropium-albuterol 0.5 mg-3 mg(2.5 mg base)/3 mL solution for nebulization 3 ml inhalation Q4H PRN (Reason: for dyspnea) Qty: 180 11RF baclofen 15 mg Tablet 15 mg PO TID@0500,1200,2000 MDD 45 Trelegy Ellipta 200-62.5-25 mcg Blister With Device 1 inh INHALATION DAILY atorvastatin 80 mg tablet 80 mg PO DAILY@2000 hydrocodone-acetaminophen 5-325 mg tablet 1 tab PO BID PRN (Reason: Pain) trmfcdbdks-pbqvbnrjggqtt-tgus 50-325-40 mg tablet 1 tab PO DAILY MRX1 PRN (Reason: Headache) hyoscyamine sulfate 0.125 mg tablet 0.25 mg PO Q6H PRN (Reason: Abdominal Discomfort) gabapentin 300 mg capsule 1,200 mg PO TID@0500,1199,1999 oxcarbazepine 600 mg tablet 600 mg PO BID@050,1999 lorazepam 1 mg tablet 1 mg PO DAILY PRN (Reason: Anxiety) duloxetine 60 mg capsule,delayed release(DR/EC) 60 mg PO BID@050,1999 (DME) nebulizer and compressor Device See Rx Instructions .Route Qty: 1 0RF Rx Instructions: As directed albuterol sulfate 90 mcg/actuation HFA aerosol inhaler 2 puff inhalation Q4H PRN (Reason: Shortness Of Breath Or Wheezing) furosemide 20 mg tablet 20 mg PO DAILY@0500 aspirin 81 mg tablet,delayed release (DR/EC) 81 mg PO DAILY@0500 verapamil 120 mg tablet 120 mg PO BID@499,1999 nicotine (polacrilex) [Nicorette] 4 mg mini lozenge 4 mg buccal Q4H PRN (Reason: nicotine cravings) prazosin 2 mg capsule 2 mg PO DAILY@1999 (DME) Oxygen Home Use Kit See Rx Instructions .Route Rx Instructions: As directed No Action ondansetron 4 mg tablet,disintegrating 4 mg PO Q6H PRN (Reason: nausea and vomiting) Qty: 14 0RF Discharge Orders: Discharge Order (Routine); Ordered 05/23/24 Ordered By: Judah Hu Diet: Advance to usual diet Activity on Discharge: As tolerated Stand Alone Forms: Patient Portal Discharge page Print Language: Luxembourgish Care Plan Goals: recovery from respiratory failure from copd Health Concerns: chronic respiratory failure copd Plan of Treatment: take prednisone as direct continue using your inhalers as before take azithromycin for 3 more days Use oxygen as directed follow up with Dr. Henriquez (Lung Doctor) be sure to keep appointments follow up with your regular doctor in a week, call for appointment Assessment: see Discharge Date/Time: 05/23/24 15:01
--- NOTE | 2024-05-23 11:22 | MHC.CM.PN ---
Per MD patient medically cleared to dc home w/ resumption of [facility] services. will transport home at 2pm. This CM spoke w/ [facility] clinical executive meeting manager, Shala, who voiced concerns re: frequent hospitalizations and no recent f/u w/ parking attendant. Shala reports patient is compliant with medications, but at times declines SN visits. Also reports patient declines teaching during SN visits, but does accept respiratory assessments. Declines PT/OT visits. CM discussed with patient who agrees to accept teaching and already has a follow up with parking attendant Dr. Henriquez scheduled for 05/25. [facility] updated via [employer].
== END 2024-05-23 15:01 | disposition home health service (06) | DRG 140 ==
LOC: HO.ED 05-22 00:14 → HO.EDOVER 05-22 01:39 → HO.S3 05-22 07:51
PROVIDERS: Physician Assistant; Admitting Provider Physician Assistant; Emergency Provider Emergency Medicine; PCP Registered Nurse; Visit Provider Internal Medicine
DX: J44.1 Chronic obstructive pulmonary disease with (acute) exacerbation (principal); J96.21 Acute and chronic respiratory failure with hypoxia; I50.32 Chronic diastolic (congestive) heart failure; I11.0 Hypertensive heart disease with heart failure; G50.0 Trigeminal neuralgia; M54.81 Occipital neuralgia; F39 Unspecified mood [affective] disorder; Z99.81 Dependence on supplemental oxygen; G47.33 Obstructive sleep apnea (adult) (pediatric); E78.5 Hyperlipidemia, unspecified; E66.812 Obesity, class 2; Z68.39 Body mass index [BMI] 39.0-39.9, adult; Z71.3 Dietary counseling and surveillance; Z20.822 Contact with and (suspected) exposure to COVID-19; Z95.2 Presence of prosthetic heart valve; Z86.73 Personal history of transient ischemic attack (TIA), and cerebral infarction without residual deficits; Z87.891 Personal history of nicotine dependence; Z79.82 Long term (current) use of aspirin; Z79.899 Other long term (current) drug therapy
CPT/HCPCS: 0241U; 36415; 71045; 80048; 80053; 82803; 83605; 83880; 84484; 85025; 87040; 93005; 94640; 99285; J0456; J2919; J3475

== ENCOUNTER → 2024-05-21 23:05 | Outpatient (BNV) | payer BC, SELFPAY | PROVIDERS: Admitting Provider Physician Assistant; Emergency Provider Emergency Medicine; PCP Registered Nurse; Visit Provider Internal Medicine Cardiovascular Disease | DX: I44.7 Left bundle-branch block, unspecified (principal) | CPT/HCPCS: 93010 ==

== ENCOUNTER → 2024-05-22 01:30 | Outpatient (BNV) | payer BC, SELFPAY | PROVIDERS: Admitting Provider Physician Assistant; Emergency Provider Emergency Medicine; PCP Registered Nurse; Visit Provider Physician Assistant | DX: J96.21 Acute and chronic respiratory failure with hypoxia (principal); J44.1 Chronic obstructive pulmonary disease with (acute) exacerbation; E66.9 Obesity, unspecified | CPT/HCPCS: 99223; 99499 ==

== ENCOUNTER 2024-05-24 10:23 | Emergency (ER) | payer BC, SELFPAY ==
[2024-05-24 10:53] VITALS: BP 160/80; PULSE 71; O2SAT 96
[2024-05-24 10:55] VITALS: BP 158/85; PULSE 100; RESP 18; TEMP 36.9; O2SAT 94; BMI 39.5
--- NOTE | 2024-05-24 11:38 | ED_ITS ---
HPI - General Adult General Chief complaint: Nausea/Vomiting/Diarrhea Stated complaint: N/V,FEVER,CHILLS,96% 4LPM,HOME/2LPM,SEEN T-1 Time Seen by Provider: 05/24/24 11:38 History of Present Illness ED Provider: Courtney LOWE narrative: The patient is a 59-year-old female who was admitted to the hospital 2 days ago for an exacerbation of her COPD. She was in the hospital for 1 overnight and discharged from the hospital yesterday afternoon. She was feeling well when she was discharged. When she got home she started to experience nausea and vomiting. She has a history of irritable bowel syndrome and this was not that unusual for her. She continued to have a lot of nausea and vomiting until she called an ambulance today. In route to the hospital the patient received an injection of an antiemetic medication from paramedics and she is currently feeling much better. Related Data Home Medications ?Medication ?Instructions ?Recorded ?Confirmed atorvastatin 80 mg tablet 80 mg PO DAILY@199903/04/23 05/22/24 yfvwaqiihn-qvpqbrrkcfdfe-[id number] 1 tab PO DAILY MRX1 PRN Headache 03/04/23 05/22/24 50 mg-325 mg-40 mg tablet duloxetine 60 mg capsule,delayed 60 mg PO BID@050,199903/04/23 05/22/24 release gabapentin 300 mg capsule 1,200 mg PO TID@0500,1200,199903/04/23 05/22/24 hydrocodone 5 mg-acetaminophen 325 1 tab PO BID PRN Pain 03/04/23 05/22/24 mg tablet hyoscyamine sulfate 0.125 mg tablet 0.25 mg PO Q6H PRN Abdominal 03/04/23 05/22/24 Discomfort lorazepam 1 mg tablet 1 mg PO DAILY PRN Anxiety 03/04/23 05/22/24 oxcarbazepine 600 mg tablet 600 mg PO BID@050,199903/04/23 05/22/24 Oxygen Home Use 04/16/23 03/10/24 prazosin 2 mg capsule 2 mg PO DAILY@199904/16/23 05/22/24 baclofen 15 mg tablet 15 mg PO TID@0500,1200,199901/10/24 05/22/24 albuterol sulfate 90 mcg/actuation 2 puff inhalation Q4H PRN 01/31/24 05/22/24 aerosol inhaler Shortness Of Breath Or Wheezing fluticasone fur. 200 mcg-umeclid 1 inh inhalation DAILY 02/14/24 05/22/24 62.5 mcg-vilant 25 mcg inhalat.powder (Trelegy Ellipta) furosemide 20 mg tablet 20 mg PO DAILY@0500 05/01/24 05/22/24 aspirin 81 mg tablet,delayed 81 mg PO DAILY@0500 05/22/24 05/22/24 release nicotine (polacrilex) 4 mg buccal 4 mg buccal Q4H PRN nicotine 05/22/24 05/22/24 mini lozenge (Nicorette) cravings verapamil 120 mg tablet 120 mg PO BID@05/22/24 05/22/24 Previous Rx's ?Medication ?Instructions ?Recorded nebulizer and compressor #1 ea 12/16/23 ipratropium 0.5 mg-albuterol 3 mg 3 ml inhalation Q4H PRN for 03/02/24 (2.5 mg base)/3 mL nebulization dyspnea #180 mL soln azithromycin 250 mg tablet 250 mg PO DAILY 3 days #3 tabs 05/23/24 prednisone 20 mg tablet 40 mg (2 x 20 mg) PO DAILY #6 tabs 05/23/24 ondansetron 4 mg disintegrating 4 mg PO Q6H PRN nausea and 05/24/24 tablet vomiting #14 tabs Allergies Allergy/AdvReac Type Severity Reaction Status Date / Time Iodinated Contrast Media Allergy Intermediate HIVES Verified 05/25/24 10:48 [IV CONTRAST] latex [LATEX] Allergy Unknown RASH Verified 05/25/24 10:48 adhesive tape Allergy Rash Verified 05/25/24 10:48 morphine [MORPHINE] AdvReac Unknown VOMITING Verified 05/25/24 10:48 Review of Systems 2 Review of Systems: Yes all other systems are reviewed and are negative PMFSH Past Medical History Medical History Chronic lung disease Hypogammaglobulinemia Smoker JUANITO (obstructive sleep apnea) Allergies Hypertension Elevated troponin COPD (chronic obstructive pulmonary disease) Chronic hypercapnic respiratory failure Trigeminal neuralgia Pulmonary nodules Mixed hyperlipidemia Peripheral neuropathy Tobacco use disorder Mood disorder Surgical History History of esophagogastroduodenoscopy (EGD) History of colonoscopy History of lumbar discectomy History of tubal ligation History of excision of mass History of shoulder surgery Social History Social History Household Members: Spouse Housing: [facility] Do you presently have visiting nurse or other home services: Yes Alcohol intake: current Alcohol intake frequency: holidays/special occasions only Alcohol type: wine Comment: refusing bed alarm Patient Tobacco Use Status: Former Tobacco user Tobacco use type: Cigarette Cigarette Packs Per Day: 4 Cigarettes Per Day: 80.0 Years Smoked: 40 e-Cigarette/Vaping Use: Former Use Second Hand Smoke Exposure: No Substance Use Type: Marijuana Advance Directives Date on File: 03/09/23 service: No Physical Exam ED Vital Signs: Vital Signs - 24 hr 05/24/24 12:41 05/24/24 13:59 Temperature 98.4 F Pulse Rate 109 H 88 Respiratory Rate 18 18 Blood Pressure 158/85 H Pulse Oximetry 95 Oxygen Delivery Method Room Air BMI result Body Mass Index 39.5 Const Other: the the patient is a 59-year-old woman who was awake and alert. She was pleasant and said that she was feeling much better than when she had called the ambulance. She was wearing nasal oxygen. She says she wears nasal oxygen at home. She did not seem in acute distress. HENMT Other: Face is symmetrical. Mucous membranes moist. Eyes General: appearance normal, both eyes and all related structures Neck Neck: Yes full ROM and Yes no JVD Resp Effort & Inspection: normal respiratory effort Auscultation: clear to auscultation bilaterally Cardio Rate: regular rate Rhythm: regular rhythm Heart sounds: S1 normal heart sound present and S2 normal heart sound present GI Other: the abdomen is soft and nontender. Skin Other: Skin is pale and dry. Neuro Other: The patient is awake and alert with normal mental status. Cranial nerves grossly intact. She moves her extremities symmetrically. Extrem Other: No calf swelling or tenderness. No peripheral edema. Medications Administered Discontinued Medications Generic Name Dose Route Start Last Admin Trade Name Freq PRN Reason Stop Dose Admin Albuterol/Ipratropium 3 ml 05/24/24 12:19 05/24/24 12:39 Albuterol/Iprat 2.5/0.5mg 3 Ml Ampul.Neb INHALE 05/24/24 12:20 3 ml ONCE ONE Administration Belladonna Alkaloids/Phenobarbital 10 ml 05/24/24 12:19 05/24/24 13:05 Phenobarb/Hyoscy/Atropine/Scop 10 Ml Elixir PO 05/24/24 12:20 10 ml ONCE ONE Administration Medical Decision Making Medical Decision Making [facility] Narrative: patient is a 59-year-old woman with a history of COPD. She was discharged from the hospital yesterday after brief hospitalization for COPD exacerbation. She also has a history of irritable bowel syndrome. She says that since returning home she has had problems with nausea and vomiting. This morning she felt sufficiently nauseated that she called 911. She received an IM injection of what I suspect was ondansetron for paramedics and has been feeling much better ever since. she has no abdominal pain. Her abdominal exam is benign. She was observed. Labs are unremarkable. She was feeling better and would like to go home. I will send a prescription for ondansetron a to her pharmacy. Lab Data 05/24/24 12:27 05/24/24 12:27 Labs: Lab Results 05/24/24 05/24/24 Range/Units 12:27 12:32 WBC 7.4 (4.8-10.8) X10*3/uL RBC 4.30 (4.20-5.50) X10*6/uL Hgb 13.7 (12.0-16.0) g/dl Hct 41.2 (37.0-47.0) % MCV 95.8 (80.0-98.0) fL MCH 31.9 (27.0-33.0) pg MCHC 33.3 (31.0-35.0) g/dl RDW 14.0 (11.0-16.0) % Plt Count 325 (160-400) X10*3/uL MPV 8.6 L (9.4-12.3) fL Immature Gran % (Auto) Cancelled Neut % (Auto) Cancelled Lymph % (Auto) Cancelled [place] % (Auto) Cancelled Eos % (Auto) Cancelled Baso % (Auto) Cancelled Lymph # (Auto) Cancelled [place] # (Auto) Cancelled Eos # (Auto) Cancelled Baso # (Auto) Cancelled Abs Immat Gran (auto) Cancelled Absolute Neuts (auto) Cancelled Absolute Nucleated RBC 0.000 (0.0-0.012) X10*3/uL Nucleated RBC % (auto) 0.0 (0.0-0.2) /100WBC Neutrophils % (Manual) 81 H (45-73) % Band Neutrophils % 6 H (3-5) % Lymphocytes % (Manual) 7 L (20-40) % Monocytes % (Manual) 4 (2-11) % Eosinophils % (Manual) 2 (0-4) % Abs Neuts (Manual) 6.4 (2.0-8.3) X10*3/uL Lymphocytes # (Manual) 0.5 L (1.2-4.9) X10*3/uL Monocytes # (Manual) 0.3 (0.1-1.2) X10*3/uL Eosinophils # (Manual) 0.1 (0.0-0.4) X10*3/uL Toxic Vacuolation PRESENT Platelet Estimate NORMAL (NORMAL) Plt Morphology Comment NORMAL RBC Morphology NORMAL Sodium 143 (135-145) mmol/L Potassium 3.5 (3.3-5.1) mmol/L Chloride 107 (96-108) mmol/L Carbon Dioxide 26 (22-29) mmol/L Anion Gap 14 (12-20) BUN 15 (9-16) mg/dL Creatinine 0.70 (0.5-1.4) mg/dL Estim Creat Clear Calc 88.7 Estimated GFR > 60 Random Glucose 120 H (60-115) mg/dL Calcium 9.1 (8.4-10.2) mg/dL Magnesium 1.9 (1.6-2.6) mg/dL Total Bilirubin 0.5 (0.0-1.0) mg/dL Direct Bilirubin 0.2 (0.0-0.5) mg/dL AST 17 (5-31) U/L ALT 16 (0-31) U/L Alkaline Phosphatase 73 (39-117) U/L C-Reactive Protein 5.31 H (< or = 0.50) mg/dL Total Protein 6.5 (6.5-8.0) g/dL Albumin 4.1 (3.5-5.0) g/dL Lipase 41 (8-78) U/L Urine Color Yellow Urine Appearance Clear Urine pH 6.5 (5.0-9.0) Ur Specific [place] 1.025 (1.005-1.025) Urine Protein Trace (Neg-Trace) mg/dL Urine Glucose (UA) Negative (Negative) mg/dL Urine Ketones Negative (Negative) mg/dL Urine Blood Negative (Negative) Urine Nitrite Negative (Negative) Ur Leukocyte Esterase Trace H (Negative) Urine RBC 0-2 (0-2) /HPF Urine WBC 0-5 (0-5) /HPF Ur Squamous Epith Cells 0-2 (0-2) /HPF Urine Bacteria None Seen (None Seen) Hyaline Casts 0-2 (0-2) /LPF Stl C. cayetanensis PCR Not Detected (Not Detect.) Stool Rotavirus A PCR Not Detected (Not Detect.) Stl Adenov F 40/41 PCR Not Detected (Not Detect.) Stool Astrovirus (PCR) Not Detected (Not Detect.) Stool Campylobacter PCR Not Detected (Not Detect.) Stool Cryptosporidium PCR Not Detected (Not Detect.) Stl Sh Tox Pr E STEC PCR Not Detected (Not Detect.) Stool E coli O157 PCR Not applicable (Not Detect.) Stl Enterotoxigenic E PCR Not Detected (Not Detect.) Stool EPEC (PCR) Not Detected (Not Detect.) Stool EAEC (PCR) Not Detected (Not Detect.) Stl E. histolytica PCR Not Detected (Not Detect.) Stool Giardia Lamblia PCR Not Detected (Not Detect.) Stl P. shigelloides PCR Not Detected (Not Detect.) Stool Salmonella PCR Not Detected (Not Detect.) Stool Sapovirus (PCR) Not Detected (Not Detect.) Stl Shigella/EIEC PCR Not Detected (Not Detect.) St Y.enterocolitica PCR Not Detected (Not Detect.) Stool Vibrio (PCR) Not Detected (Not Detect.) Stl Vibrio cholerae PCR Not Detected (Not Detect.) Stl Norovirus GI/GII PCR Not Detected (Not Detect.) C. difficile Tox B Gene NEGATIVE (Negative) Discharge Plan Discharge Clinical Impression: Nausea and vomiting Patient Disposition: Home, Self-Care Additional Instructions: Your blood testing today seems reassuring. I have sent a prescription for the nausea medicine ondansetron (also known as Zofran) to the pharmacy here at [facility]. 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 Please plan on following up with your regular doctor. Return to the emergency room if significantly worse. Prescriptions: New ondansetron 4 mg tablet,disintegrating 4 mg PO Q6H PRN (Reason: nausea and vomiting) Qty: 14 0RF No Action ipratropium-albuterol 0.5 mg-3 mg(2.5 mg base)/3 mL solution for nebulization 3 ml inhalation Q4H PRN (Reason: for dyspnea) Qty: 180 11RF baclofen 15 mg Tablet 15 mg PO TID@0500,1200,2000 MDD 45 Trelegy Ellipta 200-62.5-25 mcg Blister With Device 1 inh INHALATION DAILY atorvastatin 80 mg tablet 80 mg PO DAILY@2000 hydrocodone-acetaminophen 5-325 mg tablet 1 tab PO BID PRN (Reason: Pain) [id number]-kcwklfcvncpvs-mnwj 50-325-40 mg tablet 1 tab PO DAILY MRX1 PRN (Reason: Headache) hyoscyamine sulfate 0.125 mg tablet 0.25 mg PO Q6H PRN (Reason: Abdominal Discomfort) gabapentin 300 mg capsule 1,200 mg PO TID@0500,1200,2000 oxcarbazepine 600 mg tablet 600 mg PO BID@0500,2000 lorazepam 1 mg tablet 1 mg PO DAILY PRN (Reason: Anxiety) duloxetine 60 mg capsule,delayed release(DR/EC) 60 mg PO BID@0500,2000 (DME) nebulizer and compressor Device See Rx Instructions .Route Qty: 1 0RF Rx Instructions: As directed albuterol sulfate 90 mcg/actuation HFA aerosol inhaler 2 puff inhalation Q4H PRN (Reason: Shortness Of Breath Or Wheezing) furosemide 20 mg tablet 20 mg PO DAILY@0500 aspirin 81 mg tablet,delayed release (DR/EC) 81 mg PO DAILY@0500 verapamil 120 mg tablet 120 mg PO BID@0500,2000 nicotine (polacrilex) [Nicorette] 4 mg mini lozenge 4 mg buccal Q4H PRN (Reason: nicotine cravings) azithromycin 250 mg tablet 250 mg PO DAILY 3 Days Qty: 3 0RF Rx Instructions: start on day 2 of therapy prednisone 20 mg tablet 40 mg PO DAILY Qty: 6 0RF prazosin 2 mg capsule 2 mg PO DAILY@2000 (DME) Oxygen Home Use Kit See Rx Instructions .Route Rx Instructions: As directed Interventions: ED Discharge Assessment Last Done: 05/24/24 13:59 Discharge Date/Time: 05/24/24 14:31 Print Language: Bolivian
[2024-05-24 12:33] LABS: Hematocrit 41.2 % (37.0-47.0); Hemoglobin 13.7 g/dl (12.0-16.0); Mean Corpuscular HGB Conc 33.3 g/dl (31.0-35.0); Mean Corpuscular Hemoglobin 31.9 pg (27.0-33.0); Mean Corpuscular Volume 95.8 fL (80.0-98.0); Mean Platelet Volume 8.6 fL (9.4-12.3); Platelet Count 325 X10*3/uL (160-400); White Blood Count 7.4 X10*3/uL (4.8-10.8)
[2024-05-24 12:37] LABS: Appearance Urine Clear; Color Urine Yellow; Glucose Urine UA Negative (Negative); Leukocyte Esterase Urine Trace (Negative); Nitrite Urine Negative (Negative); PH 6.5 (5.0-9.0); Specific Gravity - Urine 1.025 (1.005-1.025); UMIC TRIGGER UACC YES; Urine Blood Negative (Negative); Urine Ketones Negative (Negative); Urine Protein Trace mg/dL (Neg-Trace)
[2024-05-24] MEDS: Albuterol/Iprat 2.5/0.5MG 3 ML AMPUL.NEB INHALE (12:39)
[2024-05-24 12:41] VITALS: PULSE 109; RESP 18; O2SAT 94
[2024-05-24 12:47] LABS: Alanine Aminotransferase 16 U/L (0-31); Albumin Level 4.1 g/dL (3.5-5.0); Alkaline Phosphatase 73 U/L (39-117); Anion Gap 14 (12-20); Aspartate Amino Transferase 17 U/L (5-31); Bilirubin Direct 0.2 mg/dL (0.0-0.5); Bilirubin Total 0.5 mg/dL (0.0-1.0); Blood Urea Nitrogen 15 mg/dL (9-16); C Reactive Protein 5.31 mg/dL (< or = 0.50); Calcium 9.1 mg/dL (8.4-10.2); Carbon Dioxide 26 mmol/L (22-29); Chloride 107 mmol/L (96-108); Creatinine Clr Calc Pharmacy 88.7; Estimated Glomerular Filt Rate > 60; Glucose Random 120 mg/dL (60-115); Lipase 41 U/L (8-78); Magnesium 1.9 mg/dL (1.6-2.6); Potassium 3.5 mmol/L (3.3-5.1); Sodium 143 mmol/L (135-145); Total Protein 6.5 g/dL (6.5-8.0)
[2024-05-24 12:49] LABS: Bacteria Urine None Seen (None Seen); Hyaline Casts Urine 0-2 /LPF (0-2); RBC Urine 0-2 /HPF (0-2); Squamous Epithelial Cell Urine 0-2 /HPF (0-2); WBC Urine 0-5 /HPF (0-5)
[2024-05-24 12:59] LABS: Band Neutrophils Percent 6 % (3-5); Eosinophils Absolute Manual 0.1 X10*3/uL (0.0-0.4); Eosinophils Percent Manual 2 % (0-4); Lymphocytes Absolute Manual 0.5 X10*3/uL (1.2-4.9); Lymphocytes Percent Manual 7 % (20-40); Monocytes Absolute Manual 0.3 X10*3/uL (0.1-1.2); Monocytes Percent Manual 4 % (2-11); Neutrophils Absolute Manual 6.4 X10*3/uL (2.0-8.3); Neutrophils Percent Manual 81 % (45-73); Platelet Estimate NORMAL (NORMAL); Platelet Morphology Comment NORMAL; RBC Morphology NORMAL; Toxic Vacuolation PRESENT
[2024-05-24] MEDS: PHENobarb/Hyoscy/Atropine/Scop 10 ML ELIXIR PO (13:05)
[2024-05-24 13:37] LABS: CDiff Gene PCR NEGATIVE (Negative)
[2024-05-24 13:59] VITALS: BP 158/85; PULSE 88; RESP 18; TEMP 36.9; O2SAT 95
[2024-05-24 14:27] LABS: Adenovirus F 40/41 Not Detected (Not Detect.); Astrovirus Not Detected (Not Detect.); Campylobacter Not Detected (Not Detect.); Cryptosporidium Not Detected (Not Detect.); Cyclospora cayetanensis Not Detected (Not Detect.); E. coli EAEC Not Detected (Not Detect.); E. coli EPEC Not Detected (Not Detect.); E. coli ETEC Not Detected (Not Detect.); E. coli STEC Not Detected (Not Detect.); Entamoeba histolytica Not Detected (Not Detect.); Giardia lamblia Not Detected (Not Detect.); Norovirus GI/GII Not Detected (Not Detect.); Plesiomonas shigelloides Not Detected (Not Detect.); Rotavirus A Not Detected (Not Detect.); Salmonella Not Detected (Not Detect.); Sapovirus Not Detected (Not Detect.); Shigella sp./EIEC Not Detected (Not Detect.); Vibrio Not Detected (Not Detect.); Vibrio Cholerae Not Detected (Not Detect.); Yersinia enterocolitica Not Detected (Not Detect.)
== END 2024-05-24 14:31 | disposition home or self-care (01) ==
PROVIDERS: Emergency Provider Emergency Medicine; PCP Registered Nurse
DX: R11.2 Nausea with vomiting, unspecified (principal); I10 Essential (primary) hypertension; J44.9 Chronic obstructive pulmonary disease, unspecified; E78.5 Hyperlipidemia, unspecified; K58.9 Irritable bowel syndrome, unspecified; J96.12 Chronic respiratory failure with hypercapnia; Z87.891 Personal history of nicotine dependence
CPT/HCPCS: 36415; 80048; 80076; 81001; 83690; 83735; 85007; 85027; 86140; 87493; 87507; 94640; 99284; 99285

== ENCOUNTER 2024-05-25 10:56 | Outpatient (AMB) | payer BC, SELFPAY ==
--- NOTE | 2024-05-25 10:43 | A.OFFVIS_ITS ---
Vital Signs 05/25/24 10:50 Height 5 ft 1 in Pulse 76 Pulse Source Pulse Oximeter Pulse Oximetry (%) 90 L Oxygen Delivery Method Nasal Cannula Oxygen Flow Rate 2 Intake Visit Reasons: COPD Allergies Iodinated Contrast Media [IV CONTRAST] Allergy (Intermediate, Verified 05/25/24 10:48) HIVES latex [LATEX] Allergy (Unknown, Verified 05/25/24 10:48) RASH adhesive tape Allergy (Verified 05/25/24 10:48) Rash morphine [MORPHINE] Adverse Reaction (Unknown, Verified 05/25/24 10:48) VOMITING HPI Comments Details: The patient is a 59 year woman with a known history of tobacco dependency and COPD. Apparently back in February she developed worsening respiratory symptoms and was admitted to the hospital with COPD exacerbation. While she was there the patient did have a CT scan of the chest which was personally reviewed by me. It appears patient does have underlying pulmonary nodules subcentimeter in size, as well as, emphysema evidence of bronchitis. The patient does use oxygen activity. She also benefits from using oxygen while sleeping. The patient also needs to quit smoking. She understands the has is having oxygen and smoking. 07/19/2023 the patient is here for a pulmonary follow-up visit. Overall she is doing about the same. She has not using the oxygen regularly. She did have an overnight oximetry done several months ago on 2 L nasal cannula demonstrating that she actually does require the 2 L and actually would benefit from a little more oxygen. However, she has not using it at also I did advise her just to go back on using the oxygen. She has significant trigeminal neuralgia and neuropathy in general making it difficult for her to have anything over head and ear area. Therefore, she is going to have to figure out a way that would work for her. She does not tolerate a oxygen mask either because of the same problem. She is going to look to see if she can find a solution otherwise will can call [facility] [place] to see if they can help her. The patient unfortunately she continues to smoke cigarettes. She does want to quit she wants to try the Nicotrol nasal spray. Will send to the pharmacy for her to try. The patient also did have pulmonary function studies that [facility] last year. She does have significant COPD. We do not have those PFTs available at this time but we will request them. She will be a great candidate for pulmonary rehabilitation at this time. The patient also had a CT scan of the chest back in February 2023 demonstrating multiple nodules largest 1 measuring 5 mm in size. She is high risk for malignancy due to her smoking history therefore she will have a repeat CT scan the fall 2023. 01/20/2024 the patient is here for a pulmonary follow-up visit. The patient has been hospitalized now about 3 times since we last spoke. I did evaluate her in the hospital as well. Has had significant wheezing. Has been requiring prednisone. Indeed she may have an allergic component to her bronchospasms. She does have significant eosinophilia. therefore, will go ahead and request additional testing including allergy testing so we can address her persistent bronchospasms. Currently she is on 40 mg of prednisone. She only taper. We did go over her inhalers. She needs to also continue to use her nebulizer therapy 2 to 4 times a day. Trelegy inhaler will be effective for her. She will go ahead and start that inhaler and we did instruct her how to use it. The patient is also using her oxygen. We did do a brief walking oximetry to make sure that she was getting adequate oxygenation. She need to continue using 2 L with activity. She does not using her nose because it does aggravate her nose so therefore she does only get some administration. The patient also has underlying daytime drowsiness. It was documented the patient is snoring. She also has headaches in the morning. The patient does have an elevated [place] score of 10/24. He is using oxygen with sleep. Will go ahead and request an in-lab sleep study at this time. 03/15/2024 the patient is here for a pulmonary follow-up visit. The patient is here for hospital follow-up visit. She has had multiple hospitalizations since the last visit. She has been having worsening respiratory symptoms. She is on currently on prednisone. She is tapering down. We did talk about her blood work demonstrating a low IgG level. I explained to her hypogammaglobulinemia can result in smoldering infections and could potentially worsen her respiratory issues and it could be driving her exacerbations. We talked about augmentation therapy. Will go ahead and repeat her levels once she is off the prednisone to see if she still low. If she is still low will talk about augmentation therapy further. In addition to that she did have a sleep study. It was an in-lab study. She did not have any evidence of sleep apnea. The patient actually just needs to be on oxygen. She can use 1 L at nighttime. We can always check an overnight oximetry on 1 L to make sure sufficient. In addition to that she is using the portable oxygen concentrator with did ask conserving device tank. The patient was walk today she needs 2 L pulse at rest and 3 L pulse with activity. When she is at home with the continue his oxygen she can stay on 2 liters/minute. Although when she is doing any kind strained his activity such as going up a flight of stairs or going showering she should be on 3 li ters/minute. The patient feels comfortable with that. She continues use her respiratory therapy as prescribed. The patient did have a CT scan of the chest back in 03/03/2023 demonstrating multiple pulmonary nodules and chronic bronchitis. Largest nodule measuring 5 mm in size. She will need another CT scan now. The patient follow-up in 3-4 weeks and will review the CT scan at that time. 04/06/2024 the patient is here for a hospital follow-up visit. She was on hospital again. The patient required another course of steroids. She then subsequently to rehabilitation. She has been using her oxygen. We again reviewed her blood work demonstrating the significant immunodeficiency. Indeed her recurrent infections may be related to immunocompromised state in the treatment of augmentation therapy may be very reasonable for her to improve her quality of life decrease hospitalizations and improve her respiratory status. But for now she is on prednisone. Therefore will wait for to finish a prednisone recheck her levels to see if the levels continued to be low. If they are low then will go ahead and start her on IVIG therapy. If the levels are coming up then which is hold steady and see if they continue to rise when she is off the prednisone. She continues with respiratory therapy good effect. We did review her chest x-ray demonstrating no acute disease. We did review her a llergy levels. There indeed elevated with an elevated IgE although her eosinophils are stable therefore not a candidate for Dupixent. However, will recheck her levels when she is off the prednisone to see if her eosinophils go about 300. 05/25/2024 the patient has a telehealth visit today. She was again in the hospital with nausea vomiting and she had dehydration. She is now better. She did require additional prednisone. Prior to the prednisone she did get the blood work demonstrating again on low IgG level. She is keeps getting admissions to the hospital because of bronchitis COPD exacerbations likely from ongoing infections. Therefore starting her on IVIG will be important. Her levels continue to be significantly low even off the prednisone. Her eosinophil levels are okay so therefore she is not a candidate for Dupixent. She continues use her oxygen good effect. She also continues with her respiratory therapy. [facility] Medical History Chronic lung disease Hypogammaglobulinemia Smoker JUANITO (obstructive sleep apnea) Allergies Hypertension Elevated troponin COPD (chronic obstructive pulmonary disease) Chronic hypercapnic respiratory failure Trigeminal neuralgia Pulmonary nodules Mixed hyperlipidemia Peripheral neuropathy Tobacco use disorder Mood disorder Surgical History History of esophagogastroduodenoscopy (EGD) History of colonoscopy History of lumbar discectomy History of tubal ligation History of excision of mass History of shoulder surgery Social History Household Members: [facility] Do you presently have visiting nurse or other home services: Yes Alcohol intake: current Alcohol intake frequency: holidays/special occasions only Alcohol type: wine Comment: refusing bed alarm Patient Tobacco Use Status: Former Tobacco user Tobacco use type: Cigarette Cigarette Packs Per Day: 4 Cigarettes Per Day: 80.0 Years Smoked: 40 e-Cigarette/Vaping Use: Former Use Second Hand Smoke Exposure: No Substance Use Type: Marijuana Advance Directives Date on File: 03/09/23 service: No Review of Systems Const Reports daytime sleepiness, Denies fever(s), Reports headache(s) and Reports snoring Eyes Denies change in vision ENT Reports headache(s) and Reports nasal congestion Card Denies chest pain and Reports dyspnea on exertion Resp Reports chest congestion, Reports cough, Reports dyspnea on exertion, Reports snoring and Reports wheezing GI Reports no additional complaints Musc Reports no additional complaints Skin/Breast Denies rash Neuro Reports headache(s) Luis/Lymph Denies lymphadenopathy Aller/Immun Reports no additional complaints and Reports wheezing Physical Exam Vital Signs: Last Vital Signs Pulse 76 05/25/24 10:50 Pulse Ox 90 L 05/25/24 10:50 Oxygen Delivery Method Nasal Cannula 05/25/24 10:50 Oxygen Flow Rate 2 05/25/24 10:50 Last Vital Signs Temp 97.6 F 12/12/23 08:00 Pulse 110 H 12/12/23 09:52 Resp 22 H 12/12/23 09:52 BP 170/89 H 12/12/23 08:00 Pulse Ox 92 12/12/23 08:00 O2 Del Method Nasal Cannula 12/12/23 08:00 O2 Flow Rate 2 12/12/23 08:00 FiO2 28 12/11/23 04:00 BMI result Body Mass Index 30.6 Const General: cooperative and alert Orientation/consciousness: patient oriented x3 Resp Effort & Inspection: normal respiratory effort and able to speak in complete sentences Neuro General: patient oriented x3 Telehealth Telehealth Telehealth Platform: Telephone Location of provider rendering services: practice address Location of patient: address on file Patient Identification confirmed using: Name, : Yes Telehealth method: voice only Patient verbally consented to treatment: Yes Patient verbally consented to billing insurance company: Yes Patient informed of any privacy concerns related to visit: Yes Minutes spent on Phone/Video with Pt.: 15 Assessment & Plan Assessment & Plan (1) Asthma: Code(s): J45.909 - Unspecified asthma, uncomplicated Category: Medical Qualifiers: Asthma severity: severe Asthma persistence: persistent Asthma complication type: with acute exacerbation Qualified Code(s): J45.51 - Severe persistent asthma with (acute) exacerbation (2) JUANITO (obstructive sleep apnea): Code(s): G47.33 - Obstructive sleep apnea (adult) (pediatric) Category: Medical (3) Tobacco use disorder: Code(s): F17.200 - Nicotine dependence, unspecified, uncomplicated Category: Medical (4) COPD (chronic obstructive pulmonary disease): Code(s): J44.9 - Chronic obstructive pulmonary disease, unspecified Category: Medical Qualifiers: COPD type: chronic bronchitis Chronic bronchitis type: simple Qualif ied Code(s): J41.0 - Simple chronic bronchitis (5) Pulmonary nodules: Code(s): R91.8 - Other nonspecific abnormal finding of lung field Category: Medical (6) Allergies: Code(s): T78.40XA - Allergy, unspecified, initial encounter Category: Medical Qualifiers: Encounter type: initial encounter Qualified Code(s): T78.40XA - Allergy, unspecified, initial encounter (7) Hypogammaglobulinemia: Code(s): D80.1 - Nonfamilial hypogammaglobulinemia Category: Medical Plan Trelegy start IVIG augmentation therapy continue oxygen supplementation with activity and sleep smoking cessation-quit LDCT program continue oxygen 1L/min while sleeping, 2l/pulse at rest and 3l/pulse with activity F/U 6-8 weeks Coding Level of Care Code Tele New Pt Level 4 ([id number]) Complex EM visit Add On G2211 Diagnoses Severe persistent asthma with acute exacerbation J45.51 Asthma severity: severe Asthma persistence: persistent Asthma complication type: with acute exacerbation JUANITO (obstructive sleep apnea) G47.33 Tobacco use disorder F17.200 Simple chronic bronchitis J41.0 COPD type: chronic bronchitis Chronic bronchitis type: simple Pulmonary nodules R91.8 Allergy, initial encounter T78.40XA Encounter type: initial encounter Hypogammaglobulinemia D80.1 Time Spent (min) 16
[2024-05-25 10:50] VITALS: PULSE 76; O2SAT 90
== END 2024-05-25 12:55 | disposition home or self-care (01) ==
LOC: HO.HPS 10:56
PROVIDERS: PCP Registered Nurse; Visit Provider Hospitalist
DX: J45.51 Severe persistent asthma with (acute) exacerbation (principal); G47.33 Obstructive sleep apnea (adult) (pediatric); F17.210 Nicotine dependence, cigarettes, uncomplicated; R91.8 Other nonspecific abnormal finding of lung field; T78.40XA Allergy, unspecified, initial encounter; D80.1 Nonfamilial hypogammaglobulinemia
CPT/HCPCS: 99442

== ENCOUNTER → 2024-05-25 10:56 | Outpatient (BNVA) | payer BC, SELFPAY | PROVIDERS: PCP Registered Nurse; Visit Provider Hospitalist | DX: D80.1 Nonfamilial hypogammaglobulinemia (principal); T78.40XA Allergy, unspecified, initial encounter; J45.51 Severe persistent asthma with (acute) exacerbation ==

== ENCOUNTER 2024-06-05 00:01 | Inpatient (IN) | payer BC, SELFPAY ==
[2024-06-05] VITALS (13 sets, daily range): BP systolic 109–174; BP diastolic 50–113; PULSE 76–109; RESP 16–24; TEMP 36.3–37.1; O2SAT 91–99; BMI 36.6; BMI 39.8
--- NOTE | 2024-06-05 | ECG_ITS ---
Test Reason : SOB Blood Pressure : / mmHG Vent. Rate : 104 BPM Atrial Rate : 104 BPM P-R Int : 132 ms QRS Dur : 084 ms QT Int : 342 ms P-R-T Axes : 065 074 -02 degrees QTc Int : 449 ms Sinus tachycardia Nonspecific ST and T wave abnormality Abnormal ECG When compared with ECG of 21-MAY-2024 23:05, Nonspecific T wave abnormality now evident in Inferior leads Nonspecific T wave abnormality now evident in Lateral leads Referred By: Generic ED Physician Electronically Signed By:Eladio Nelson
--- NOTE | ~2024-06-05 | XR_ITS ---
EXAMINATION: XR CHEST CLINICAL INFORMATION: sob, copd COMPARISON: 05/01/2024 TECHNIQUE: Frontal view of the chest was obtained. FINDINGS: No significant abnormality is noted involving the heart, lungs, mediastinum, bony thorax or soft tissues. XR/XR chest 1V IMPRESSION: Unremarkable examination. Electronically signed by: Sarah Lozano MD 06/05/2024 12:34 AM [facility] [place]
--- NOTE | ~2024-06-05 | US_ITS ---
EXAMINATION: US TRIPLEX LOWER EXTREMITY, RIGHT CLINICAL INFORMATION: Leg pain and swelling COMPARISON: None available. TECHNIQUE: Color-flow triplex imaging with spectral analysis and compression Doppler were performed on the right lower extremity. FINDINGS: Respiratory variation, normal compression and augmented flow are noted throughout the right lower extremity. The visualized common femoral vein, superficial femoral vein, profunda femoral vein, popliteal vein and midcalf peroneal and posterior tibial venous segments show no evidence of deep venous thrombosis. Hartley's cyst measures 3 x 0.8 x 1.3 cm. US/US venous duplex LE RT IMPRESSION: No evidence of deep venous thrombosis involving the right lower extremity. Electronically signed by: Joaquin Graff MD 06/05/2024 07:29 PM [facility]
--- NOTE | 2024-06-05 00:18 | ED.SOB ---
HPI - SOB/Dyspnea General Chief Complaint: Dyspnea Stated Complaint: SOB 77%neb home,99%cpap, BP 201/99, hx COPD Time Seen by Provider: 06/05/24 00:10 Source: patient and EMS Mode of arrival: EMS Limitations: no limitations History of Present Illness ED Provider: Dr. Juli lAeman HPI Narrative: Patient comes to the emergency room complaining of shortness of breath. Patient states that she was smoking a cigarette and had the sudden onset of shortness of breath. Patient gave herself a nebulization treatment without any significant relief. Patient's called 911. When EMS arrived, patient's oxygen saturation was 77% on 4 L with her nebulization treatment. Patient is known to have COPD, 3 L at baseline. Patient was switched to CPAP, given to nebulization treatments and Solu-Medrol. On arrival, patient states that she is starting to feel a bit better but still significantly short of breath. Patient denies chest pain. Related Data Home Medications ?Medication ?Instructions ?Recorded ?Confirmed atorvastatin 80 mg tablet 80 mg PO DAILY@199903/04/23 05/22/24 yhrgqtmtdk-nvqztbflythvs-ycppjgty 1 tab PO DAILY MRX1 PRN Headache 03/04/23 05/22/24 50 mg-325 mg-40 mg tablet duloxetine 60 mg capsule,delayed 60 mg PO BID@05003/04/23 05/22/24 release gabapentin 300 mg capsule 1,200 mg PO TID@0500,1200,199903/04/23 05/22/24 hydrocodone 5 mg-acetaminophen 325 1 tab PO BID PRN Pain 03/04/23 05/22/24 mg tablet hyoscyamine sulfate 0.125 mg tablet 0.25 mg PO Q6H PRN Abdominal 03/04/23 05/22/24 Discomfort lorazepam 1 mg tablet 1 mg PO DAILY PRN Anxiety 03/04/23 05/22/24 oxcarbazepine 600 mg tablet 600 mg PO BID@499,199903/04/23 05/22/24 Oxygen Home Use 04/16/23 03/10/24 prazosin 2 mg capsule 2 mg PO DAILY@199904/16/23 05/22/24 baclofen 15 mg tablet 15 mg PO TID@0500,1200,199901/10/24 05/22/24 albuterol sulfate 90 mcg/actuation 2 puff inhalation Q4H PRN 01/31/24 05/22/24 aerosol inhaler Shortness Of Breath Or Wheezing fluticasone fur. 200 mcg-umeclid 1 inh inhalation DAILY 02/14/24 05/22/24 62.5 mcg-vilant 25 mcg inhalat.powder (Trelegy Ellipta) furosemide 20 mg tablet 20 mg PO DAILY@0500 05/01/24 05/22/24 aspirin 81 mg tablet,delayed 81 mg PO DAILY@49905/22/24 05/22/24 release nicotine (polacrilex) 4 mg buccal 4 mg buccal Q4H PRN nicotine 05/22/24 05/22/24 mini lozenge (Nicorette) cravings verapamil 120 mg tablet 120 mg PO BID@05/22/24 05/22/24 Previous Rx's ?Medication ?Instructions ?Recorded nebulizer and compressor #1 ea 12/16/23 ipratropium 0.5 mg-albuterol 3 mg 3 ml inhalation Q4H PRN for 03/02/24 (2.5 mg base)/3 mL nebulization dyspnea #180 mL soln azithromycin 250 mg tablet 250 mg PO DAILY 3 days #3 tabs 05/23/24 prednisone 20 mg tablet 40 mg (2 x 20 mg) PO DAILY #6 tabs 05/23/24 ondansetron 4 mg disintegrating 4 mg PO Q6H PRN nausea and 05/24/24 tablet vomiting #14 tabs Allergies Allergy/AdvReac Type Severity Reaction Status Date / Time Iodinated Contrast Media Allergy Intermediate HIVES Verified 06/05/24 00:31 [IV CONTRAST] latex [LATEX] Allergy Unknown RASH Verified 06/05/24 00:31 adhesive tape Allergy Rash Verified 06/05/24 00:31 morphine [MORPHINE] AdvReac Unknown VOMITING Verified 06/05/24 00:31 Review of Systems Review of Systems: Constitutional : No Weight loss, No Fever, No Chills, No Night Sweats, No Fatigue, No Malaise ENT/Mouth : No Hearing loss, No Ear Pain, No Nasal Congestion, No Sinus Pain, No Hoarseness, No sore throat, No Rhinorrhea, No Swallowing Difficulty Eyes: No Eye Pain, No Swelling, No Redness, No Foreign Body, No Discharge, No Vision Changes Cardiovascular : No Chest Pain, No SOB, No Dyspnea on Exertion, No Orthopnea, No Edema, No Palpitations Respiratory : Complaining of cough, wheezing and shortness of breath Gastrointestinal : No Nausea, No Vomiting, No Diarrhea, No Constipation, No abdominal Pain, No Hematochezia, No Melena Genitourinary : no irregular bleeding, No Dysuria, No Urinary Frequency, No Hematuria, No Urinary Incontinence, No Urgency, No Flank Pain, No Urinary Flow Changes, No Hesitancy Musculoskeletal : No joint pain, No Myalgias, No Joint Swelling Skin : No Skin Lesions, No rash Neuro : Complaining of chronic facial pain secondary to a fall a few days ago and trigeminal neuralgia No Weakness, No Numbness, No Paresthesias, No Loss of Consciousness, No Dizziness, No Headache Psych : No Anxiety/Panic, No Depression, No SI/HI/AH/VH, No Social Issues, Heme/Lymph: No Bruising, No Bleeding,No Lymphadenopathy Endocrine : No Polyuria, No Polydipsia, No Temperature Intolerance FORMERLY [facility], 1928–1983 Past Medical History Medical History Chronic lung disease Hypogammaglobulinemia Smoker JUANITO (obstructive sleep apnea) Allergies Hypertension Elevated troponin COPD (chronic obstructive pulmonary disease) Chronic hypercapnic respiratory failure Trigeminal neuralgia Pulmonary nodules Mixed hyperlipidemia Peripheral neuropathy Tobacco use disorder Mood disorder Surgical History History of esophagogastroduodenoscopy (EGD) History of colonoscopy History of lumbar discectomy History of tubal ligation History of excision of mass History of shoulder surgery Social History Social History Household Members: Spouse Housing: Condominium Do you presently have visiting nurse or other home services: Yes Alcohol intake: current Alcohol intake frequency: holidays/special occasions only Alcohol type: hard liquor Comment: refusing bed alarm Patient Tobacco Use Status: Former Tobacco user Tobacco use type: Cigarette Cigarette Packs Per Day: 4 Cigarettes Per Day: 80.0 Years Smoked: 40 Smoked in Last 30 Days: No e-Cigarette/Vaping Use: Former Use Second Hand Smoke Exposure: No Use of substances other than those prescribed or required for medical reasons: Yes Substance Use Type: Marijuana Advance Directives: Yes Advance Directives on File: Yes Advance Directives Date on File: 03/09/23 Do you have a plan to hurt others: No Plan Patient : No service: No Physical Exam Vital Signs: Vital Signs: Last Vital Signs Temp 98 F 06/05/24 03:07 Pulse 93 06/05/24 03:07 Resp 24 H 06/05/24 03:07 BP 109/50 L 06/05/24 03:07 Pulse Ox 91 L 06/05/24 03:07 O2 Del Method Nasal Cannula 06/05/24 03:07 O2 Flow Rate 4 06/05/24 03:07 Oxygen Flow Rate 15 06/05/24 00:15 BMI result Body Mass Index 36.6 Const: Other: Appearance: Alert. Oriented X3. No acute distress. Eyes: Pupils equal, round and reactive to light. ENT: Pharynx normal. Neck: Normal inspection. Neck supple. No lymph nodes noted. No crepitus CVS: Normal heart rate and rhythm. Pulses normal. Normal S1 and S2 Respiratory: Patient has bilateral wheezing, decreased air movement bilaterally, tachypneic in the 30s. Patient came on CPAP, oxygen saturation 97% Abdomen: Soft and nontender. No rigidity. No distention. Skin: Skin warm and dry. Normal skin color. Normal skin turgor. Extremities: No lower extremity edema. No Lacerations. No Rash Neuro: Oriented X 3. No motor deficit. No sensory deficit. Moving all extremities. No slurred speech. CN 2 through 12 grossly intact Psych: calm, cooperative, normal affect Course Course Course Narrative: Patient has done CPAP, however the oxygen saturation goal is at the most 92%, patient has a COPD patient. All of patient's labs and imaging pending -empirically, patient is being treated with IV fluids based on ideal weight of 46 kg. Patient is obese. Also, patient received on arrival, ceftriaxone, azithromycin, patient is receiving magnesium here in the ED. Patient already received multiple nebulization treatments and Solu-Medrol per EMS Medications Administered Discontinued Medications Generic Name Dose Route Start Last Admin Trade Name Freq PRN Reason Stop Dose Admin Baclofen 10 mg 06/05/24 00:55 06/05/24 03:22 Baclofen 10 Mg Tablet PO 06/05/24 00:56 Not Given ONCE ONE Ceftriaxone Sodium 1 gm 06/05/24 00:12 06/05/24 00:46 Ceftriaxone Sodium 1 Gm Vial IVPUSH 06/05/24 00:13 1 gm ONCE ONE Administration Albuterol Sulfate 2.5 mg/ 0 mg 06/05/24 00:21 06/05/24 00:23 Albuterol/Ipratropium 3 ml INHALE 06/05/24 00:22 1 dose ONCE ONE Administration Gabapentin 1,200 mg 06/05/24 00:55 06/05/24 03:22 Gabapentin 600 Mg Tablet PO 06/05/24 00:56 Not Given ONCE ONE Magnesium Sulfate 2 gm in 50 mls @ 25 mls/hr 06/05/24 00:10 06/05/24 03:22 Magnesium Sulfate/H2o IV 06/05/24 02:09 Infused ONCE ONE Infusion Sodium Chloride 2,000 mls @ 999 mls/hr 06/05/24 00:12 06/05/24 00:45 Ns IVCONT 06/05/24 02:12 999 mls/hr .Q2H1M ONE Administration Azithromycin 500 mg/ Sodium 250 mls @ 125 mls/hr 06/05/24 00:12 06/05/24 03:23 Chloride IV 06/05/24 02:11 Infused ONCE ONE Infusion Ketorolac Tromethamine 15 mg 06/05/24 03:32 06/05/24 03:40 Ketorolac Tromethamine 15 Mg/Ml Vial IVPUSH 06/05/24 03:33 15 mg ONCE ONE Administration Lorazepam 1 mg 06/05/24 00:55 06/05/24 01:13 Lorazepam 2 Mg/Ml Vial IVPUSH 06/05/24 00:56 1 mg ONCE ONE Administration Medical Decision Making Medical Decision Making [facility] Narrative: My interpretation of EKG: Sinus tachycardia, heart rate 104, no ST segment depression or elevation, no T-wave inversion, QTC 449 My interpretation of labs: Patient's white blood cell count within normal limits, lactic acid 8.0. Likely secondary to multiple nebulization treatments. Try IV fluids, lactic acid returned to normal. PCO2 does not show any acute abnormality, at baseline, normal troponin, normal BNP. Serology negative for influenza RSV and COVID Patient was initially on CPAP, switched to nasal cannula at her usual 3 L. Patient overall feeling much better. Chest x-ray does not show any infiltrates. Patient likely had an asthma exacerbation rather than COPD exacerbation. -I discussed the patient with Dr. Wilkes patient being admitted Differential Diagnosis Differential Diagnoses: The differential diagnosis associated with the presentation includes Admission/Observation Consideration of admission/observation: Escalation of care including admission/observation considered Consult Healthcare Provider Management of the patient was discussed with: Hospitalist Lab Data MDM Lab Attestation statement: I reviewed the patient's lab results. 06/05/24 00:14 06/05/24 00:14 Labs: Lab Results 06/05/24 06/05/24 06/05/24 Range/Units 00:14 00:49 02:48 WBC 10.1 (4.8-10.8) X10*3/uL RBC 4.22 (4.20-5.50) X10*6/uL Hgb 13.4 (12.0-16.0) g/dl Hct 41.0 (37.0-47.0) % MCV 97.2 (80.0-98.0) fL MCH 31.8 (27.0-33.0) pg MCHC 32.7 (31.0-35.0) g/dl RDW 13.2 (11.0-16.0) % Plt Count 378 (160-400) X10*3/uL MPV 9.1 L (9.4-12.3) fL Immature Gran % (Auto) 0.7 H (0.0-0.4) % Neut % (Auto) 54.3 (45-73) % Lymph % (Auto) 31.4 (20-40) % Garfield % (Auto) 10.2 (2-11) % Eos % (Auto) 2.9 (0-4) % Baso % (Auto) 0.5 (0-2) % Lymph # (Auto) 3.2 (1.2-4.9) X10*3/uL Garfield # (Auto) 1.0 (0.1-1.2) X10*3/uL Eos # (Auto) 0.3 (0.0-0.4) X10*3/uL Baso # (Auto) 0.1 (0.0-0.2) X10*3/uL Abs Immat Gran (auto) 0.07 H (0.00-0.03) X10*3/uL Absolute Neuts (auto) 5.5 (2.0-8.3) x10*3/uL Absolute Nucleated RBC 0.000 (0.0-0.012) X10*3/uL Nucleated RBC % (auto) 0.0 (0.0-0.2) /100WBC PT 10.4 L (10.9-12.4) SEC INR 0.9 (0.9-1.1) VBG pH 7.43 (7.32-7.43) VBG pCO2 49 mmHg VBG pO2 208 mmHg VBG HCO3 33 H (22-26) mmol/L VBG O2 Saturation 100.0 % VBG Base Excess 7.9 mmol/L Sodium 148 H (135-145) mmol/L Potassium 3.8 (3.3-5.1) mmol/L Chloride 101 (96-108) mmol/L Carbon Dioxide 26 (22-29) mmol/L Anion Gap 25 H (12-20) BUN 17 H (9-16) mg/dL Creatinine 0.87 (0.5-1.4) mg/dL Estim Creat Clear Calc 68.3 Estimated GFR > 60 Random Glucose 101 (60-115) mg/dL Lactic Acid 8.0 H* (0.5-2.0) mmol/L Lactic Acid F/U @ 2Hr 1.8 (0.5-2.0) mmol/L Calcium 9.7 D (8.4-10.2) mg/dL Magnesium 2.1 (1.6-2.6) mg/dL Total Bilirubin 0.2 (0.0-1.0) mg/dL AST 31 (5-31) U/L ALT 21 (0-31) U/L Alkaline Phosphatase 76 (39-117) U/L Troponin I High Sens 12.1 (<3.5-17.0) ng/L B-Natriuretic Peptide 76 (<100) pg/mL Total Protein 7.3 (6.5-8.0) g/dL Albumin 4.3 (3.5-5.0) g/dL Influenza Type A (PCR) NEGATIVE (Negative) Influenza Type B (PCR) NEGATIVE (Negative) RSV RNA Qual (PCR) NEGATIVE (Negative) SARS-CoV-2 RNA (RT-PCR) NEGATIVE (Negative) Independent Interpretation I performed an independent interpretation of an: Plain X-Ray Radiology Impression Discussion of test interpretation with radiology: I have reviewed the radiologist's reading. Radiologist Impression: No significant abnormality is noted involving the heart, lungs, mediastinum, bony thorax or soft tissues. Independent Historian Clinical information obtained from an independent historian. History obtained from or confirmed by: EMS Critical Care Time Critical Care Time Critical Care Time: Yes Total Critical Care Time: 60 Attestation: I have personally provided critical care time. Time includes review of lab data, radiology results, discussion with consultants, and monitoring for potential decompensation. Intervention performed as documented. Discharge Plan Discharge Clinical Impression: Chronic hypercapnic respiratory failure, Asthma Patient Disposition: Admitted As Inpatient Prescriptions: No Action ipratropium-albuterol 0.5 mg-3 mg(2.5 mg base)/3 mL solution for nebulization 3 ml inhalation Q4H PRN (Reason: for dyspnea) Qty: 180 11RF baclofen 15 mg Tablet 15 mg PO TID@0500,1200,2000 MDD 45 Trelegy Ellipta 200-62.5-25 mcg Blister With Device 1 inh INHALATION DAILY atorvastatin 80 mg tablet 80 mg PO DAILY@2000 hydrocodone-acetaminophen 5-325 mg tablet 1 tab PO BID PRN (Reason: Pain) jwzhhieljo-kqxbtydshebja-mdac 50-325-40 mg tablet 1 tab PO DAILY MRX1 PRN (Reason: Headache) hyoscyamine sulfate 0.125 mg tablet 0.25 mg PO Q6H PRN (Reason: Abdominal Discomfort) gabapentin 300 mg capsule 1,200 mg PO TID@0500,1200,2000 oxcarbazepine 600 mg tablet 600 mg PO BID@0500,2000 lorazepam 1 mg tablet 1 mg PO DAILY PRN (Reason: Anxiety) duloxetine 60 mg capsule,delayed release(DR/EC) 60 mg PO BID@0500,2000 (DME) nebulizer and compressor Device See Rx Instructions .Route Qty: 1 0RF Rx Instructions: As directed albuterol sulfate 90 mcg/actuation HFA aerosol inhaler 2 puff inhalation Q4H PRN (Reason: Shortness Of Breath Or Wheezing) furosemide 20 mg tablet 20 mg PO DAILY@0500 aspirin 81 mg tablet,delayed release (DR/EC) 81 mg PO DAILY@0500 verapamil 120 mg tablet 120 mg PO BID@0500,2000 nicotine (polacrilex) [Nicorette] 4 mg mini lozenge 4 mg buccal Q4H PRN (Reason: nicotine cravings) azithromycin 250 mg tablet 250 mg PO DAILY 3 Days Qty: 3 0RF Rx Instructions: start on day 2 of therapy prednisone 20 mg tablet 40 mg PO DAILY Qty: 6 0RF ondansetron 4 mg tablet,disintegrating 4 mg PO Q6H PRN (Reason: nausea and vomiting) Qty: 14 0RF prazosin 2 mg capsule 2 mg PO DAILY@2000 (DME) Oxygen Home Use Kit See Rx Instructions .Route Rx Instructions: As directed Print Language: Albanian
[2024-06-05] MEDS: Albuterol Sulfate 2.5 MG, Albuterol/Iprat 2.5/0.5MG 3 ML 3 ML INHALE (00:23)
[2024-06-05 00:35] LABS: MANUAL DIFF FLAG NO
[2024-06-05 00:36] LABS: Basophils Absolute Auto 0.1 X10*3/uL (0.0-0.2); Basophils Percent Auto 0.5 % (0-2); Eosinophils Absolute Auto 0.3 X10*3/uL (0.0-0.4); Eosinophils Percent Auto 2.9 % (0-4); Hemoglobin 13.4 g/dl (12.0-16.0); Imm Gran Abs Auto 0.07 X10*3/uL (0.00-0.03); Imm Gran Pct Auto 0.7 % (0.0-0.4); Lymphocytes Absolute Auto 3.2 X10*3/uL (1.2-4.9); Lymphocytes Percent Auto 31.4 % (20-40); Mean Corpuscular HGB Conc 32.7 g/dl (31.0-35.0); Mean Corpuscular Hemoglobin 31.8 pg (27.0-33.0); Mean Corpuscular Volume 97.2 fL (80.0-98.0); Mean Platelet Volume 9.1 fL (9.4-12.3); Monocytes Percent Auto 10.2 % (2-11); Neutrophils Absolute Auto 5.5 x10*3/uL (2.0-8.3); Neutrophils Percent Auto 54.3 % (45-73); Platelet Count 378 X10*3/uL (160-400); Red Blood Count 4.22 X10*6/uL (4.20-5.50); Red Cell Distribution Width 13.2 % (11.0-16.0); White Blood Count 10.1 X10*3/uL (4.8-10.8)
[2024-06-05 00:41] LABS: INTERNATIONAL NORM RATIO 0.9 (0.9-1.1); Prothrombin Time 10.4 SEC (10.9-12.4)
[2024-06-05] MEDS: Azithromycin 500 MG in 0.9 % Sodium Chloride 250 ML 125 MG IV (00:45)
[2024-06-05] MEDS: Magnesium Sulfate/H2O 2 GM/50 ML PIGGYBACK IV (00:45)
[2024-06-05] MEDS: 0.9 % Sodium Chloride 2,000 ML 999 ML IVCONT (00:45)
[2024-06-05] MEDS: cefTRIAXone sodium 1 GM VIAL IVPUSH (00:46)
[2024-06-05 00:54] LABS: Venous Blood Gas Refer to POC result
[2024-06-05 00:55] LABS: VBG Base Excess 7.9 mmol/L; VBG HCO3 33 mmol/L (22-26); VBG pCO2 49 mmHg; VBG pH 7.43 (7.32-7.43); VBG pO2 208 mmHg
[2024-06-05 00:56] LABS: B Type Natriuretic Peptide 76 pg/mL (<100)
[2024-06-05 01:00] LABS: Troponin-I High Sensitivity 12.1 ng/L (<3.5-17.0)
[2024-06-05 01:05] LABS: Alanine Aminotransferase 21 U/L (0-31); Albumin Level 4.3 g/dL (3.5-5.0); Alkaline Phosphatase 76 U/L (39-117); Anion Gap 25 (12-20); Aspartate Amino Transferase 31 U/L (5-31); Bilirubin Total 0.2 mg/dL (0.0-1.0); Blood Urea Nitrogen 17 mg/dL (9-16); Calcium 9.7 mg/dL (8.4-10.2); Carbon Dioxide 26 mmol/L (22-29); Chloride 101 mmol/L (96-108); Creatinine Clr Calc Pharmacy 68.3; Estimated Glomerular Filt Rate > 60; Glucose Random 101 mg/dL (60-115); Magnesium 2.1 mg/dL (1.6-2.6); Potassium 3.8 mmol/L (3.3-5.1); Sodium 148 mmol/L (135-145); Total Protein 7.3 g/dL (6.5-8.0)
[2024-06-05] MEDS: LORazepam 2 MG/ML VIAL 1 MG IVPUSH (01:13)
[2024-06-05 01:24] LABS: Influenza A PCR NEGATIVE (Negative); Influenza B PCR NEGATIVE (Negative); Resp Syncy Virus RNA Qual PCR NEGATIVE (Negative); SARS COV2 PCR INHOUSE NEGATIVE (Negative)
--- NOTE | 2024-06-05 02:13 | PC.NURSE ---
Addendum entered by Ross Aguilar RN 06/05/24 05:55: pt refuses lovenox reporting bruising and vaginal bleeding after last discharge. pt educated on DVT prophylaxis and risk/implications of DVT. pt states understanding. hospitalist notified Original Note: pt declines gabapentin and baclofen at this time, states she will take both along with tegretol and cymbalata at 0500. pt states her trigeminal neuralgia is at a tolerable level
[2024-06-05 02:32] LABS: Reflex Lactate? Lactic Acid Added
[2024-06-05 03:09] LABS: ~Lactic Acid-LAB USE ONLY 1.8 mmol/L (0.5-2.0)
[2024-06-05] MEDS: Ketorolac Tromethamine 15 MG/ML VIAL IVPUSH (03:40)
--- NOTE | 2024-06-05 05:26 | P.HPHOSP_ITS ---
History of Present Illness Date of Service: 06/05/24 Chief Complaint: Dyspnea This is a 59-year-old female with pertinent history of chronic hypoxemic respiratory failure due to COPD on 2-3 L supplemental oxygen at baseline, hypertension, mixed hyperlipidemia, history of CVA, trigeminal neuralgia, mood disorder, lower extremity edema who presents to the emergency department for evaluation of dyspnea. Patient states her symptoms started on the day of presentation. Patient is having dyspnea which is worse with exertion. Also has been having dry cough and associated wheezing. No improvement with home inhaler. She uses 1-2 L supplemental oxygen at rest and 3 L supplemental oxygen during exertion. Patient was found satting 77% on her 3 L supplemental oxygen as per EMS. No fever, chills, chest pain, palpitations, abdominal pain, leg edema, PND, orthopnea, changes in urinary or bowel habits. In the emergency department, patient on 4 L supplemental oxygen and wheezing despite multiple DuoNeb treatments. Review of Systems 2 Constitutional: Constitutional: Reports fatigue Cardiovascular: Cardiovascular: Reports dyspnea on exertion Respiratory: Respiratory: Reports cough, Reports dyspnea on exertion and Reports wheezing Gastrointestinal: Gastrointestinal: Reports no additional gastrointestinal complaints Genitourinary: Genitourinary: Reports no additional female genitourinary complaints Endocrine: Endocrine: Reports fatigue Allergic/Immunologic: Allergic/Immunologic: Reports wheezing [facility] Medical History Acute exacerbation of chronic obstructive pulmonary disease Chronic lung disease Hypogammaglobulinemia Smoker JUANITO (obstructive sleep apnea) Allergies Hypertension Elevated troponin COPD (chronic obstructive pulmonary disease) Chronic hypercapnic respiratory failure Trigeminal neuralgia Pulmonary nodules Mixed hyperlipidemia Peripheral neuropathy Tobacco use disorder Mood disorder Surgical History History of esophagogastroduodenoscopy (EGD) History of colonoscopy History of lumbar discectomy History of tubal ligation History of excision of mass History of shoulder surgery Social History Household Members: Spouse Housing: Condominium Do you presently have visiting nurse or other home services: Yes Alcohol intake: current Alcohol intake frequency: holidays/special occasions only Alcohol type: hard liquor Comment: refusing bed alarm Patient Tobacco Use Status: Former Tobacco user Tobacco use type: Cigarette Cigarette Packs Per Day: 4 Cigarettes Per Day: 80.0 Years Smoked: 40 Smoked in Last 30 Days: No e-Cigarette/Vaping Use: Former Use Second Hand Smoke Exposure: No Use of substances other than those prescribed or required for medical reasons: Yes Substance Use Type: Marijuana Advance Directives: Yes Advance Directives on File: Yes Advance Directives Date on File: 03/09/23 Do you have a plan to hurt others: No Plan Patient : No service: No Meds Allergies Allergy/AdvReac Type Severity Reaction Status Date / Time Iodinated Contrast Media Allergy Intermediate HIVES Verified 06/05/24 00:31 [IV CONTRAST] latex [LATEX] Allergy Unknown RASH Verified 06/05/24 00:31 adhesive tape Allergy Rash Verified 06/05/24 00:31 morphine [MORPHINE] AdvReac Unknown VOMITING Verified 06/05/24 00:31 Home Medications ?Medication ?Instructions ?Recorded ?Confirmed ?Last Taken ?Type atorvastatin 80 mg tablet 80 mg PO DAILY@199903/04/23 05/22/24 05/21/24 20:00 History kfwgiuoydh-ckdcpycfliqmp-dxufxhjk 1 tab PO DAILY MRX1 PRN Headache 03/04/23 05/22/24 05/21/24 20:00 History 50 mg-325 mg-40 mg tablet duloxetine 60 mg capsule,delayed 60 mg PO BID@0500,199903/04/23 05/22/24 05/21/24 20:00 History release gabapentin 300 mg capsule 1,200 mg PO TID@0500,1200,199903/04/23 05/22/24 05/21/24 20:00 History hydrocodone 5 mg-acetaminophen 325 1 tab PO BID PRN Pain 03/04/23 05/22/24 05/21/24 20:00 History mg tablet hyoscyamine sulfate 0.125 mg tablet 0.25 mg PO Q6H PRN Abdominal 03/04/23 05/22/24 05/21/24 20:00 History Discomfort lorazepam 1 mg tablet 1 mg PO DAILY PRN Anxiety 03/04/23 05/22/24 05/21/24 20:00 History oxcarbazepine 600 mg tablet 600 mg PO BID@0500,199903/04/23 05/22/24 05/21/24 20:00 History Oxygen Home Use 11/09/0303/10/24 03/10/24 History prazosin 2 mg capsule 2 mg PO DAILY@199904/16/23 05/22/24 05/21/24 20:00 History baclofen 15 mg tablet 15 mg PO TID@499,1199,199901/10/24 05/22/24 05/21/24 20:00 History albuterol sulfate 90 mcg/actuation 2 puff inhalation Q4H PRN 01/31/24 05/22/24 05/21/24 20:00 History aerosol inhaler Shortness Of Breath Or Wheezing fluticasone fur. 200 mcg-umeclid 1 inh inhalation DAILY 02/14/24 05/22/24 05/21/24 20:00 History 62.5 mcg-vilant 25 mcg inhalat.powder (Trelegy Ellipta) furosemide 20 mg tablet 20 mg PO DAILY@49905/01/24 05/22/24 05/21/24 20:00 History aspirin 81 mg tablet,delayed 81 mg PO DAILY@49905/22/24 05/22/24 05/21/24 20:00 History release nicotine (polacrilex) 4 mg buccal 4 mg buccal Q4H PRN nicotine 05/22/24 05/22/24 05/21/24 20:00 History mini lozenge (Nicorette) cravings verapamil 120 mg tablet 120 mg PO BID@05/22/24 05/22/24 05/21/24 20:00 History Physical Exam 2 Vital Signs and Narrative: Vital Signs: Last Vital Signs Temp 98 F 06/05/24 05:22 Pulse 80 06/05/24 05:22 Resp 18 06/05/24 05:22 BP 133/69 06/05/24 05:22 Pulse Ox 95 06/05/24 05:22 O2 Del Method Nasal Cannula 06/05/24 05:22 O2 Flow Rate 2 06/05/24 05:22 Oxygen Flow Rate 15 06/05/24 00:15 BMI result Body Mass Index 36.6 Middle-aged female lying in bed in mild distress on supplemental oxygen Neck supple, no JVD Regular rate and rhythm, S1-S2 heard Bilateral wheezing appreciated Abdomen soft nontender, no guarding, no rigidity Patient is awake, alert and oriented to self, place, time and person ; no focal motor deficit Psych: Normal mood No pedal edema Results Labs 06/05/24 00:14 06/05/24 00:14 Labs: Laboratory Results - last 24 hr 06/05/24 06/05/24 06/05/24 00:14 00:49 02:48 MCV 97.2 MCH 31.8 MCHC 32.7 RDW 13.2 Plt Count 378 MPV 9.1 L Immature Gran % (Auto) 0.7 H Neut % (Auto) 54.3 Lymph % (Auto) 31.4 Kimble % (Auto) 10.2 Eos % (Auto) 2.9 Baso % (Auto) 0.5 Lymph # (Auto) 3.2 Kimble # (Auto) 1.0 Eos # (Auto) 0.3 Baso # (Auto) 0.1 Abs Immat Gran (auto) 0.07 H Absolute Neuts (auto) 5.5 Absolute Nucleated RBC 0.000 Nucleated RBC % (auto) 0.0 PT 10.4 L INR 0.9 VBG pH 7.43 VBG pCO2 49 VBG pO2 208 VBG HCO3 33 H VBG O2 Saturation 100.0 VBG Base Excess 7.9 Anion Gap 25 H Estim Creat Clear Calc 68.3 Estimated GFR > 60 Random Glucose 101 Lactic Acid 8.0 H* Lactic Acid F/U @ 2Hr 1.8 Calcium 9.7 D Magnesium 2.1 Total Bilirubin 0.2 AST 31 ALT 21 Alkaline Phosphatase 76 Troponin I High Sens 12.1 B-Natriuretic Peptide 76 Total Protein 7.3 Albumin 4.3 Influenza Type A (PCR) NEGATIVE Influenza Type B (PCR) NEGATIVE RSV RNA Qual (PCR) NEGATIVE SARS-CoV-2 RNA (RT-PCR) NEGATIVE Imaging Radiologist's Impressions: Impressions Chest X-Ray 06/05/24 00:18 IMPRESSION: Unremarkable examination. Electronically signed by: Sarah Lozano MD 06/05/2024 12:34 AM [facility] [place] and Plan (1) Acute exacerbation of chronic obstructive pulmonary disease: Status: Acute Plan This is a 59-year-old female with pertinent history of chronic hypoxemic respiratory failure due to COPD on 2-3 L supplemental oxygen at baseline, hypertension, mixed hyperlipidemia, history of CVA, trigeminal neuralgia, mood disorder who presents to the emergency department for evaluation of dyspnea. #. Acute on chronic hypoxemic respiratory failure due to acute exacerbation of COPD: Will admit patient with supplemental oxygen. Scheduled and p.r.n. DuoNebs. Continue home inhaler. Initiating systemic steroids. Defer azithromycin. #. Acute lactic acidosis due to albuterol use and hypoxia. No sepsis #. History of CVA/mixed hyperlipidemia: On aspirin and statin #. Hypertension: On amlodipine #. Trigeminal neuralgia: On baclofen, gabapentin, Tegretol, Cymbalta. Patient wants these medications at 05:00 #. Mood disorder: Continue home mood stabilizers #. Obesity class 2: Counseled regarding diet and exercise #. Lower extremity edema: On Lasix #. JUANITO: Noncompliant with NIV at home Med rec pending DVT prophylaxis: Ramy Admit as inpatient and will require two night minimum hospital stay for supplemental oxygen, monitoring of respiratory status (as above), which is not possible in a lesser acute setting. Quality Stroke Does the patient have a stroke diagnosis?: No VTE Prior VTE?: No VTE Risk Level:: Medical - moderate - high VTE Device Contraindication: Treatment Not Indicated VTE Drug Contraindication: N/A - Med Ordered
[2024-06-05] MEDS: Baclofen 10 MG TABLET 15 MG PO ×3 (05:46→20:31)
[2024-06-05] MEDS: oxyCODONE HCl Immed Release 5 MG TABLET PO ×3 (05:47→20:34)
[2024-06-05] MEDS: carBAMazepine 200 MG TABLET 600 MG PO (05:47)
[2024-06-05] MEDS: DULoxetine HCl 60 MG CAPSULE.DR PO ×2 (05:48→20:28)
[2024-06-05] MEDS: Gabapentin 600 MG TABLET 1200 MG PO (05:48)
[2024-06-05] MEDS: ondansetron HCL 4 MG/2 ML VIAL IVPUSH (06:00)
[2024-06-05] MEDS: methylPREDNISolone Sod Succ 40 MG/ML VIAL IVPUSH ×2 (07:04→17:17)
[2024-06-05] MEDS: Albuterol/Iprat 2.5/0.5MG 3 ML AMPUL.NEB INHALE ×4 (07:24→19:07)
[2024-06-05] MEDS: 0.9 % Sodium Chloride Flush 3 ML SYRINGE IVFLUSH ×3 (08:57→20:31)
--- NOTE | 2024-06-05 08:59 | PHA.MEDREC ---
Addendum entered by Pete Hall [facility] 06/05/24 10:05: MED REC CHECKED BY [facility] Addendum entered by Giovanni Calzada 06/05/24 09:02: Patient also request we keep her scheduled time to take her medications to be set to 0500 for morning medications, 0500,2000 fr BID medicacitons and 0500,1200,2000 for TID medications. Original Note: Pharmacy Consult ? Medication Reconciliation Pharmacy has completed the medication reconciliation. Spoke with patient and she was able to confirm medications with me; dosages and how she is taking them. Patient confirmed she is still taking the Itcvbhcdhg-Jlyxemcbauxpi-Jwrw tab as needed for headaches and states she still has some pills at home despite not filling then since July per claims and the patient. She also confirmed she is still taking the Trellegy inhaler despite not filling it since March for a 30 day supply per claims and the patient.
--- NOTE | 2024-06-05 09:56 | MHC.CM.PN ---
Female 59 DX Dyspnea Lives w spouse. Uses a rollator outside. She states that she is independent with all functional mobility. Spoke with patient about pulmonary rehab. She states that she does not qualify for STR. She discharged home with [facility]. They discharged the patient from services. Pt preferences for [facility]NA were obtained and referrals have been sent.
--- NOTE | 2024-06-05 10:17 | PM.EVENT ---
Event Note Date of Service: 06/05/24 Event Note: Day Team follow up S Seen and examined reports some improvement, still short of breath with min exert O vitals - last documented lungs - diminished air entry b/l A/P 59 yo admitted for acute. on chronic resp failure due to asthma exacerbation continue care as outlined in H&P Time Spent With Patient Time: Total time managing care of this patient today ____ minutes.
[2024-06-05] MEDS: VerapamiL HCL 120 MG TABLET PO ×2 (11:19→20:29)
[2024-06-05] MEDS: Gabapentin 400 MG CAPSULE 1200 MG PO ×2 (12:35→20:28)
--- NOTE | 2024-06-05 14:25 | PC.NURSE ---
Pt complaining of right posterior calf pain . Md Mehta notified , will order a doppler
[2024-06-05] MEDS: OXcarbazepine 300 MG TABLET 600 MG PO (20:27)
[2024-06-05] MEDS: Atorvastatin Calcium 80 MG TABLET PO (20:28)
[2024-06-05] MEDS: Prazosin HCL 1 MG CAPSULE 2 MG PO (20:29)
[2024-06-05] MEDS: LORazepam 1 MG TABLET PO (20:29)
[2024-06-06] VITALS (10 sets, daily range): BP systolic 140–162; BP diastolic 64–78; PULSE 70–91; RESP 15–22; TEMP 36.3–36.9; O2SAT 93–96
[2024-06-06] MEDS: Gabapentin 400 MG CAPSULE 1200 MG PO ×3 (04:39→19:58)
[2024-06-06] MEDS: OXcarbazepine 300 MG TABLET 600 MG PO ×2 (04:39→20:00)
[2024-06-06] MEDS: Baclofen 10 MG TABLET 15 MG PO ×3 (04:39→19:57)
[2024-06-06] MEDS: VerapamiL HCL 120 MG TABLET PO ×2 (04:40→20:00)
[2024-06-06] MEDS: Aspirin Enteric Coated 81 MG TABLET.DR PO (04:40)
[2024-06-06] MEDS: DULoxetine HCl 60 MG CAPSULE.DR PO ×2 (04:40→19:59)
[2024-06-06] MEDS: Furosemide 20 MG TABLET PO (04:40)
[2024-06-06] MEDS: methylPREDNISolone Sod Succ 40 MG/ML VIAL IVPUSH ×2 (04:43→17:19)
[2024-06-06] MEDS: Benzonatate 100 MG CAPSULE PO (05:37)
[2024-06-06] MEDS: oxyCODONE HCl Immed Release 5 MG TABLET PO ×3 (05:40→20:00)
[2024-06-06 05:53] LABS: MANUAL DIFF FLAG NO
[2024-06-06 05:56] LABS: Basophils Percent Auto 0.2 % (0-2); Eosinophils Percent Auto 0.1 % (0-4); Hemoglobin 12.4 g/dl (12.0-16.0); Imm Gran Abs Auto 0.06 X10*3/uL (0.00-0.03); Imm Gran Pct Auto 0.5 % (0.0-0.4); Lymphocytes Absolute Auto 1.6 X10*3/uL (1.2-4.9); Lymphocytes Percent Auto 12.5 % (20-40); Mean Corpuscular HGB Conc 31.8 g/dl (31.0-35.0); Mean Corpuscular Hemoglobin 31.3 pg (27.0-33.0); Mean Corpuscular Volume 98.5 fL (80.0-98.0); Mean Platelet Volume 9.1 fL (9.4-12.3); Monocytes Absolute Auto 0.9 X10*3/uL (0.1-1.2); Neutrophils Absolute Auto 10.1 x10*3/uL (2.0-8.3); Neutrophils Percent Auto 79.7 % (45-73); Platelet Count 346 X10*3/uL (160-400); Red Blood Count 3.96 X10*6/uL (4.20-5.50); Red Cell Distribution Width 13.8 % (11.0-16.0); White Blood Count 12.7 X10*3/uL (4.8-10.8)
[2024-06-06 06:21] LABS: Anion Gap 12 (12-20); Blood Urea Nitrogen 11 mg/dL (9-16); Carbon Dioxide 28 mmol/L (22-29); Chloride 108 mmol/L (96-108); Creatinine Clr Calc Pharmacy 89.1; Estimated Glomerular Filt Rate > 60; Glucose Random 131 mg/dL (60-115); Potassium 4.5 mmol/L (3.3-5.1); Sodium 143 mmol/L (135-145)
[2024-06-06] MEDS: Albuterol/Iprat 2.5/0.5MG 3 ML AMPUL.NEB INHALE ×4 (07:48→19:30)
[2024-06-06] MEDS: Fluticasone/Umeclidinium/Vilanterol 200/62.5/25 BLST.W.DEV 1 PUFF INHALE (07:48)
[2024-06-06] MEDS: 0.9 % Sodium Chloride Flush 3 ML SYRINGE IVFLUSH ×3 (08:31→20:01)
--- NOTE | 2024-06-06 09:33 | HO.PM.IMPN ---
Subjective Subjective Date of Service: 06/06/24 Interval History: seen and examined this AM reports breathing a bit easier, but feels weak unsure if she would consider STR Physical Exam Vital Signs: Vital Signs: Last Vital Signs Temp 97.4 F 06/06/24 07:30 Pulse 72 06/06/24 07:48 Resp 22 H 06/06/24 07:48 BP 140/72 H 06/06/24 07:30 Pulse Ox 96 06/06/24 07:30 O2 Del Method Nasal Cannula 06/06/24 07:30 O2 Flow Rate 2 06/06/24 07:30 Oxygen Flow Rate 15 06/05/24 00:15 BMI result Body Mass Index 39.8 Const: Other: General - no acute distress, appears comfortable Cardiovascular - regular rate and rhythm, S1-S2 Lungs - still with wheezing, improved compared to yesterday Abdomen - soft, nontender, no rebound or guarding Extremities - no edema bilaterally Neuro - awake and alert, no focal deficits Objective Data Active Medications Acetaminophen (Acetaminophen 325 Mg Tablet) 650 mg PO Q6H PRN PRN Reason: Pain, Mild (Pain Scale 1-3), fever or headache Acetaminophen/Butalbital/Caffeine (Butalb/Acetamin/Caff 50/325/40 Tablet) 1 tab PO DAILY MRX1 PRN PRN Reason: Headache Albuterol/Ipratropium (Albuterol/Iprat 2.5/0.5mg 3 Ml Ampul.Neb) 3 ml INHALE RQ4H WHILE AWAKE [facility] Last Admin: 06/06/24 07:48 Dose: 3 ml Documented By: RAHEEM Albuterol/Ipratropium (Albuterol/Iprat 2.5/0.5mg 3 Ml Ampul.Neb) 3 ml INHALE Q4H PRN PRN Reason: Shortness of Breath/Wheezing Aspirin (Aspirin Enteric Coated 81 Mg Tablet.) 81 mg PO DAILY@0500 [facility] Last Admin: 06/06/24 04:40 Dose: 81 mg Documented By: LOUIE Atorvastatin Calcium (Atorvastatin Calcium 80 Mg Tablet) 80 mg PO DAILY@1999 [facility] Last Admin: 06/05/24 20:28 Dose: 80 mg Documented By: LOUIE Baclofen (Baclofen 10 Mg Tablet) 15 mg PO TID@0500,1200,1999 [facility] Last Admin: 06/06/24 04:39 Dose: 15 mg Documented By: LOUIE Benzonatate (Benzonatate 100 Mg Capsule) 100 mg PO TID PRN PRN Reason: Cough Last Admin: 06/06/24 05:37 Dose: 100 mg Documented By: LOUIE Calcium Carbonate (Calcium Carbonate 750 Mg Tab.Chew) 750 mg PO Q4H PRN PRN Reason: Heartburn Duloxetine HCl (Duloxetine Hcl 60 Mg Capsule.Dr) 60 mg PO BID@ [facility] Last Admin: 06/06/24 04:40 Dose: 60 mg Documented By: LOUIE Fluticasone/Umeclidinium/Vilanterol (Fluticasone/Umeclidinium/Vilanterol 200/62.5/25 Blst.W.Dev) 1 puff INHALE RDAILY [facility] Last Admin: 06/06/24 07:48 Dose: 1 puff Documented By: RAHEEM Furosemide (Furosemide 20 Mg Tablet) 20 mg PO DAILY@050 [facility]; Protocol Last Admin: 06/06/24 04:40 Dose: 20 mg Documented By: LOUIE Gabapentin (Gabapentin 400 Mg Capsule) 1,200 mg PO TID@050,1199,1999 [facility] Last Admin: 06/06/24 04:39 Dose: 1,200 mg Documented By: LOUIE Lorazepam (Lorazepam 1 Mg Tablet) 1 mg PO DAILY PRN PRN Reason: Anxiety Last Admin: 06/05/24 20:29 Dose: 1 mg Documented By: LOUIE Magnesium Hydroxide (Milk Of Magnesia 30 Ml Oral.Susp) 30 ml PO DAILY PRN PRN Reason: Constipation Melatonin (Melatonin 3 Mg Tablet) 6 mg PO BEDTIME PRN PRN Reason: Insomnia Methylprednisolone Sodium Succinate (Methylprednisolone Sod Succ 40 Mg/Ml Vial) 40 mg IVPUSH Q12H [facility] Last Admin: 06/06/24 04:43 Dose: 40 mg Documented By: LOUIE Ondansetron HCl (Ondansetron Hcl 4 Mg/2 Ml Vial) 4 mg IVPUSH Q8H PRN PRN Reason: Nausea and Vomiting Last Admin: 06/05/24 06:00 Dose: 4 mg Documented By: GENOLAMC Oxcarbazepine (Oxcarbazepine 300 Mg Tablet) 600 mg PO BID@ [facility] Last Admin: 06/06/24 04:39 Dose: 600 mg Documented By: LOUIE Oxycodone HCl (Oxycodone Hcl Immed Release 5 Mg Tablet) 5 mg PO Q6H PRN PRN Reason: Pain, Severe (Pain Scale 7-10) Last Admin: 06/06/24 05:40 Dose: 5 mg Documented By: LOUIE Prazosin HCl (Prazosin Hcl 1 Mg Capsule) 2 mg PO DAILY@1999 [facility]; Protocol Last Admin: 06/05/24 20:29 Dose: 2 mg Documented By: LOUIE Sodium Chloride (0.9 % Sodium Chloride Flush 3 Ml Syringe) 3 ml IVFSH [facility] Last Admin: 06/06/24 08:31 Dose: 3 ml Documented By: TONY Verapamil HCl (Verapamil Hcl 120 Mg Tablet) 120 mg PO BID@ [facility]; Protocol Last Admin: 06/06/24 04:40 Dose: 120 mg Documented By: LOUIE Labs 06/06/24 05:42 06/06/24 05:42 Labs: Laboratory Results - last 24 hr 06/06/24 05:42 MCV 98.5 H MCH 31.3 MCHC 31.8 RDW 13.8 Plt Count 346 MPV 9.1 L Immature Gran % (Auto) 0.5 H Neut % (Auto) 79.7 H Lymph % (Auto) 12.5 L [place] % (Auto) 7.0 Eos % (Auto) 0.1 Baso % (Auto) 0.2 Lymph # (Auto) 1.6 [place] # (Auto) 0.9 Eos # (Auto) 0.0 Baso # (Auto) 0.0 Abs Immat Gran (auto) 0.06 H Absolute Neuts (auto) 10.1 H Absolute Nucleated RBC 0.000 Nucleated RBC % (auto) 0.0 Anion Gap 12 Estim Creat Clear Calc 89.1 Estimated GFR > 60 Random Glucose 131 H Calcium 9.0 D Microbiology Microbiology Results: Microbiology 06/05/24 00:14 Blood Culture - Preliminary Blood - Venous No growth after 24 hours. 06/05/24 00:14 Blood Culture - Preliminary Blood - Venous No growth after 24 hours. Assessment and Plan (1) Acute exacerbation of chronic obstructive pulmonary disease: Status: Acute Plan This is a 59-year-old female with pertinent history of chronic hypoxemic respiratory failure due to COPD on 2-3 L supplemental oxygen at baseline, hypertension, mixed hyperlipidemia, history of CVA, trigeminal neuralgia, mood disorder who presents to the emergency department for evaluation of dyspnea. #. Acute on chronic hypoxemic respiratory failure due to acute exacerbation of COPD O2 requirements improving towards baseline of 3L, still with diffuse wheezing continue iv steroids and scheduled + prn updrafts x 24 more hours and re-eval #. Acute lactic acidosis due to albuterol use and hypoxia resovled #. History of CVA/mixed hyperlipidemia: On aspirin and statin #. Hypertension: On amlodipine #. Trigeminal neuralgia: On baclofen, gabapentin, Tegretol, Cymbalta. Patient wants these medications at 05:00 #. Mood disorder: Continue home mood stabilizers #. Obesity class 2: Counseled regarding diet and exercise #. Lower extremity edema: On Lasix #. JUANITO: Noncompliant with NIV at home #. Weakness likley due to acute illness; pt unsure if she would consider STR DVT pptx - mechanical (pt educated on the reasoning for lovenox/heparin use while ill in the hospital, specifically on decreasing risk of VTE but despite this, she refuses citing prior bruising/hematoma secondary to lovenox) Full Code Reason for continued hospitalization: pt with on going wheezing and intermittent tachypnea, not able to transition to oral steroids and PRN bronchodilators Quality Stroke Does the patient have a stroke diagnosis?: No VTE Prior VTE?: No VTE Risk Level:: Medical - moderate - high VTE Device Contraindication: Treatment Not Indicated VTE Drug Contraindication: N/A - Med Ordered
[2024-06-06] MEDS: Atorvastatin Calcium 80 MG TABLET PO (19:58)
[2024-06-06] MEDS: LORazepam 1 MG TABLET PO (19:59)
[2024-06-06] MEDS: Prazosin HCL 1 MG CAPSULE 2 MG PO (19:59)
[2024-06-06] MEDS: Nystatin Powder 15 GM BOTTLE 1 APPL TOPICAL (23:52)
[2024-06-07] VITALS (8 sets, daily range): BP systolic 150–162; BP diastolic 70–80; PULSE 74–85; RESP 17–18; TEMP 36–36.4; O2SAT 92–96
[2024-06-07] MEDS: Gabapentin 400 MG CAPSULE 1200 MG PO ×3 (03:35→21:27)
[2024-06-07] MEDS: OXcarbazepine 300 MG TABLET 600 MG PO ×2 (03:35→21:28)
[2024-06-07] MEDS: Baclofen 10 MG TABLET 15 MG PO ×3 (03:35→21:29)
[2024-06-07] MEDS: Furosemide 20 MG TABLET PO (03:36)
[2024-06-07] MEDS: DULoxetine HCl 60 MG CAPSULE.DR PO ×2 (03:36→21:31)
[2024-06-07] MEDS: Aspirin Enteric Coated 81 MG TABLET.DR PO (03:36)
[2024-06-07] MEDS: VerapamiL HCL 120 MG TABLET PO ×2 (03:36→21:28)
[2024-06-07] MEDS: Butalb/Acetamin/Caff 50/325/40 TABLET 1 TAB PO (03:36)
[2024-06-07] MEDS: methylPREDNISolone Sod Succ 40 MG/ML VIAL IVPUSH ×2 (06:14→17:16)
[2024-06-07] MEDS: Albuterol/Iprat 2.5/0.5MG 3 ML AMPUL.NEB INHALE ×4 (06:30→19:36)
[2024-06-07] MEDS: 0.9 % Sodium Chloride Flush 3 ML SYRINGE IVFLUSH ×3 (07:46→21:35)
[2024-06-07] MEDS: Nystatin Powder 15 GM BOTTLE 1 APPL TOPICAL ×2 (07:46→21:37)
[2024-06-07] MEDS: oxyCODONE HCl Immed Release 5 MG TABLET PO ×4 (07:53→21:31)
[2024-06-07] MEDS: Fluticasone/Umeclidinium/Vilanterol 200/62.5/25 BLST.W.DEV 1 PUFF INHALE (08:46)
--- NOTE | 2024-06-07 12:18 | HO.PM.IMPN ---
Subjective Subjective Date of Service: 06/07/24 Interval History: Being followed for acute on chronic hypoxic respiratory failure due to acute COPD exacerbation is on 2-3 L of supplemental oxygen at home. Feeling better this morning, shortness of breath has improved but concerned about weakness, history of fall with rt periorbital ecchymosis, nervous about ambulating independently, is agreeable for rehab. Denies fever, no chills, no acute events overnight is on 2 L of oxygen, use 1 L of oxygen for sleep and 3 L with exertion. Review of Systems All other system reviewed and are negative Physical Exam Vital Signs: Vital Signs: Last Vital Signs Temp 97.3 F 06/07/24 07:59 Pulse 83 06/07/24 11:26 Resp 18 06/07/24 11:26 BP 150/70 H 06/07/24 07:59 Pulse Ox 93 06/07/24 07:59 O2 Del Method Nasal Cannula 06/07/24 07:59 O2 Flow Rate 1.0 06/07/24 07:59 Oxygen Flow Rate 15 06/05/24 00:15 BMI result Body Mass Index 39.8 Const: Other: General patient resting comfortably in no acute distress. Right periorbital ecchymosis Neck no JVD. CVS regular rate rhythm, Respiratory lungs clear to auscultation, no respiratory distress, no wheeze, no rhonchi. Gastrointestinal abdomen soft, non tender, bowel sounds audible, no guarding , no rigidity. Extremities edema/teds. Neuro non focal Skin no rash Psych appropriate affect Objective Data Active Medications Acetaminophen (Acetaminophen 325 Mg Tablet) 650 mg PO Q6H PRN PRN Reason: Pain, Mild (Pain Scale 1-3), fever or headache Acetaminophen/Butalbital/Caffeine (Butalb/Acetamin/Caff 50/325/40 Tablet) 1 tab PO DAILY MRX1 PRN PRN Reason: Headache Last Admin: 06/07/24 03:36 Dose: 1 tab Documented By: LOUIE Albuterol/Ipratropium (Albuterol/Iprat 2.5/0.5mg 3 Ml Ampul.Neb) 3 ml INHALE RQ4H WHILE AWAKE [facility] Last Admin: 06/07/24 11:25 Dose: 3 ml Documented By: MURRAY Albuterol/Ipratropium (Albuterol/Iprat 2.5/0.5mg 3 Ml Ampul.Neb) 3 ml INHALE Q4H PRN PRN Reason: Shortness of Breath/Wheezing Aspirin (Aspirin Enteric Coated 81 Mg Tablet.) 81 mg PO DAILY@499 [facility] Last Admin: 06/07/24 03:36 Dose: 81 mg Documented By: LOUIE Atorvastatin Calcium (Atorvastatin Calcium 80 Mg Tablet) 80 mg PO DAILY@1999 [facility] Last Admin: 06/06/24 19:58 Dose: 80 mg Documented By: LOUIE Baclofen (Baclofen 10 Mg Tablet) 15 mg PO TID@499, [facility] Last Admin: 06/07/24 12:14 Dose: 15 mg Documented By: TSERING Benzonatate (Benzonatate 100 Mg Capsule) 100 mg PO TID PRN PRN Reason: Cough Last Admin: 06/06/24 05:37 Dose: 100 mg Documented By: LOUIE Calcium Carbonate (Calcium Carbonate 750 Mg Tab.Chew) 750 mg PO Q4H PRN PRN Reason: Heartburn Duloxetine HCl (Duloxetine Hcl 60 Mg Capsule.) 60 mg PO BID@ [facility] Last Admin: 06/07/24 03:36 Dose: 60 mg Documented By: LOUIE Fluticasone/Umeclidinium/Vilanterol (Fluticasone/Umeclidinium/Vilanterol 200/62.5/25 Blst.W.Dev) 1 puff INHALE RDAILY [facility] Last Admin: 06/07/24 08:46 Dose: 1 puff Documented By: MURRAY Furosemide (Furosemide 20 Mg Tablet) 20 mg PO DAILY@499 [facility]; Protocol Last Admin: 06/07/24 03:36 Dose: 20 mg Documented By: LOUIE Gabapentin (Gabapentin 400 Mg Capsule) 1,200 mg PO TID@499, [facility] Last Admin: 06/07/24 12:14 Dose: 1,200 mg Documented By: TSERING Lorazepam (Lorazepam 1 Mg Tablet) 1 mg PO DAILY PRN PRN Reason: Anxiety Last Admin: 06/06/24 19:59 Dose: 1 mg Documented By: LOUIE Magnesium Hydroxide (Milk Of Magnesia 30 Ml Oral.Susp) 30 ml PO DAILY PRN PRN Reason: Constipation Melatonin (Melatonin 3 Mg Tablet) 6 mg PO BEDTIME PRN PRN Reason: Insomnia Methylprednisolone Sodium Succinate (Methylprednisolone Sod Succ 40 Mg/Ml Vial) 40 mg IVPUSH Q12H [facility] Last Admin: 06/07/24 06:14 Dose: 40 mg Documented By: LOUIE Nystatin (Nystatin Powder 15 Gm Bottle) 1 appl TOPICAL BID [facility]; Protocol Last Admin: 06/07/24 07:46 Dose: 1 appl Documented By: TSERING Ondansetron HCl (Ondansetron Hcl 4 Mg/2 Ml Vial) 4 mg IVPUSH Q8H PRN PRN Reason: Nausea and Vomiting Last Admin: 06/05/24 06:00 Dose: 4 mg Documented By: TEMI Oxcarbazepine (Oxcarbazepine 300 Mg Tablet) 600 mg PO BID@ [facility] Last Admin: 06/07/24 03:35 Dose: 600 mg Documented By: LOUIE Oxycodone HCl (Oxycodone Hcl Immed Release 5 Mg Tablet) 5 mg PO Q6H PRN PRN Reason: Pain, Severe (Pain Scale 7-10) Last Admin: 06/07/24 07:53 Dose: 5 mg Documented By: TSERING Prazosin HCl (Prazosin Hcl 1 Mg Capsule) 2 mg PO DAILY@1999 [facility]; Protocol Last Admin: 06/06/24 19:59 Dose: 2 mg Documented By: LOUIE Sodium Chloride (0.9 % Sodium Chloride Flush 3 Ml Syringe) 3 ml IVFSH [facility] Last Admin: 06/07/24 07:46 Dose: 3 ml Documented By: TSERING Verapamil HCl (Verapamil Hcl 120 Mg Tablet) 120 mg PO BID@ [facility]; Protocol Last Admin: 06/07/24 03:36 Dose: 120 mg Documented By: LOUIE Labs 06/06/24 05:42 06/06/24 05:42 Microbiology Microbiology Results: Microbiology 06/05/24 00:14 Blood Culture - Preliminary Blood - Venous No growth after 48 hours. 06/05/24 00:14 Blood Culture - Preliminary Blood - Venous No growth after 48 hours. Assessment and Plan (1) Acute exacerbation of chronic obstructive pulmonary disease: Status: Acute (2) Obesity (BMI 30-39.9): Status: Chronic Plan 59-year-old female with pertinent history of chronic hypoxemic respiratory failure due to COPD on 2-3 L supplemental oxygen at baseline, hypertension, mixed hyperlipidemia, history of CVA, trigeminal neuralgia, mood disorder who presents to the emergency department for evaluation of dyspnea. #. Acute on chronic hypoxemic respiratory failure due to acute exacerbation of COPD Shortness of breath improved on baseline oxygen , 2 L at rest and 3L with activity and 1 L for sleep on iv steroids and scheduled + prn updrafts Will transition to by mouth steroids from a.m. Leukocytosis likely due to steroids #. Acute lactic acidosis due to albuterol use and hypoxia resovled #. History of CVA/mixed hyperlipidemia: On aspirin and statin #. Hypertension: On amlodipine #. Trigeminal neuralgia: On baclofen, gabapentin, Tegretol, Cymbalta. Patient wants these medications at 05:00 #. Mood disorder: Continue home mood stabilizers #. Obesity class 2: Counseled regarding diet and exercise #. Lower extremity edema: On Lasix #. JUANITO: Noncompliant with NIV at home #. Weakness /FALL likley due to acute illness will obtain PT eval DVT pptx -add mechanical device(pt educated on the reasoning for lovenox/heparin use while in the hospital, specifically on decreasing risk of VTE but despite this, she refuses citing prior bruising/hematoma secondary to lovenox) Full Code Reason for continued hospitalization: Need PT eval for safe disposition and for transitioning IV steroids to by mouth Quality Stroke Does the patient have a stroke diagnosis?: No VTE Prior VTE?: No VTE Risk Level:: Medical - moderate - high VTE Device Contraindication: Treatment Not Indicated VTE Drug Contraindication: N/A - Med Ordered
[2024-06-07] MEDS: Prazosin HCL 1 MG CAPSULE 2 MG PO (21:28)
[2024-06-07] MEDS: Atorvastatin Calcium 80 MG TABLET PO (21:31)
[2024-06-07] MEDS: LORazepam 1 MG TABLET PO (22:51)
[2024-06-08] VITALS (10 sets, daily range): BP systolic 132–152; BP diastolic 70–82; PULSE 71–84; RESP 16–18; TEMP 36.1–36.2; O2SAT 92–99
[2024-06-08] MEDS: ondansetron HCL 4 MG/2 ML VIAL IVPUSH (00:12)
[2024-06-08] MEDS: VerapamiL HCL 120 MG TABLET PO ×2 (04:38→20:48)
[2024-06-08] MEDS: Gabapentin 400 MG CAPSULE 1200 MG PO ×3 (04:38→20:48)
[2024-06-08] MEDS: Furosemide 20 MG TABLET PO (04:39)
[2024-06-08] MEDS: Aspirin Enteric Coated 81 MG TABLET.DR PO (04:39)
[2024-06-08] MEDS: DULoxetine HCl 60 MG CAPSULE.DR PO ×2 (04:40→20:49)
[2024-06-08] MEDS: OXcarbazepine 300 MG TABLET 600 MG PO ×2 (04:40→20:49)
[2024-06-08] MEDS: Baclofen 10 MG TABLET 15 MG PO ×3 (04:41→20:50)
[2024-06-08] MEDS: methylPREDNISolone Sod Succ 40 MG/ML VIAL IVPUSH (04:44)
[2024-06-08] MEDS: oxyCODONE HCl Immed Release 5 MG TABLET PO ×3 (04:44→13:49)
[2024-06-08] MEDS: Fluticasone/Umeclidinium/Vilanterol 200/62.5/25 BLST.W.DEV 1 PUFF INHALE (07:43)
[2024-06-08] MEDS: Albuterol/Iprat 2.5/0.5MG 3 ML AMPUL.NEB INHALE ×4 (07:43→20:03)
[2024-06-08] MEDS: Nystatin Powder 15 GM BOTTLE 1 APPL TOPICAL ×2 (08:31→20:55)
[2024-06-08] MEDS: 0.9 % Sodium Chloride Flush 3 ML SYRINGE IVFLUSH ×3 (08:31→20:52)
--- NOTE | 2024-06-08 10:15 | MHC.CM.PN ---
Addendum entered by Tara Keenan 06/08/24 14:09: PT HAS DECIDED TO HOLD OFF ON VNA OR OUTPATIENT SERVICES SHE SAYS SHE WILL CONSIDER AGAIN AFTER COMPLETING IVIG SHE SAYS SHE DOES NOT FEEL WELL ENOUGH TO GO TODAY THOUGH AND HER IS UNAVAILABLE TO TRANSPORT/ASSIST SHE SAYS HER INSURANCE NEVER COVERS TRANSPORT HOME AND SHE WOULD ALSO BE ALONE ONCE SHE GOT THERE MESSAGE RELAYED TO PROVIDER Addendum entered by Tara Keenan 06/08/24 11:39: ACUTE REHABS DECLINED REFERRAL PT AWARE AND STATING SHE IS NOT WILLING TO GO TO STR SHE IS UNSURE IF SHE WANTS VNA DUE TO IMPAIRED IMMUNE SYSTEM CM WILL DISCUSS WITH PROVIDER AND GIVE PT TIME TO CONSIDER Original Note: PT MEDICALLY READY FOR DC REFERRALS MADE TO ACUTE REHABS PER HER PREFERENCE/PT RECOMMENDATIONS
--- NOTE | 2024-06-08 12:56 | PM.DS ---
DS: Providers Provider Date of Service: 06/09/24 Date of admission: 06/05/24 05:24 Date of discharge: 06/09/24 Primary care physician: Liyah Patterson MD Attending physician on discharge: Andi Mehta Discharging clinician: Lelo Wallace DS: Diagnosis Discharge Diagnosis (1) Acute exacerbation of chronic obstructive pulmonary disease: Status: Acute DS: Summary Hospital Course Hospital Course: From H&P on the day of admission This is a 59-year-old female with pertinent history of chronic hypoxemic respiratory failure due to COPD on 2-3 L supplemental oxygen at baseline, hypertension, mixed hyperlipidemia, history of CVA, trigeminal neuralgia, mood disorder, lower extremity edema who presents to the emergency department for evaluation of dyspnea. Patient states her symptoms started on the day of presentation. Patient is having dyspnea which is worse with exertion. Also has been having dry cough and associated wheezing. No improvement with home inhaler. She uses 1-2 L supplemental oxygen at rest and 3 L supplemental oxygen during exertion. Patient was found satting 77% on her 3 L supplemental oxygen as per EMS. No fever, chills, chest pain, palpitations, abdominal pain, leg edema, PND, orthopnea, changes in urinary or bowel habits. In the emergency department, patient on 4 L supplemental oxygen and wheezing despite multiple DuoNeb treatments. Acute on chronic hypoxemic respiratory failure due to acute exacerbation of COPD Chest x-ray with no evidence of pneumonia. Shortness of breath improved on baseline oxygen, 2 L at rest and 3L with activity and 1 L for sleep. Treated with IV steroids and scheduled + prn updrafts. Will transition to by mouth steroids from a.m. Leukocytosis likely due to steroids. patient afebrile. Blood cultures have remained negative to date. PT recommended acute rehab but she was not accepted by any acute rehab and has declined to go to [facility]. She will be discharged home to complete course of oral steroids - she voiced concern over staying on prednisone too long. Planned to give prednisone taper but she did not want taper so changed to 6 days of oral prednisone to get her through until her follow-up appointment with her PCP which is scheduled for June 15. However she prefers to take 3 days of oral prednisone and then stop and see how she responds off of the prednisone prior to her appointment with her PCP. Acute lactic acidosis due to albuterol use and hypoxia. Resolved. hypernatremia. resolved Time Attestation Discharge Coordination Time (in mins): 36 Quality: Safe Use of Opioids Does Pt have an Active Cancer Diagnosis on the Problem List?: No Quality: Stroke Does the patient have a stroke diagnosis?: No Physical Exam Vital Signs: Vital Signs: Last Vital Signs Temp 97.2 F 06/08/24 07:47 Pulse 78 06/08/24 11:43 Resp 18 06/08/24 11:43 BP 132/72 06/08/24 07:47 Pulse Ox 92 06/08/24 07:47 O2 Del Method Nasal Cannula 06/08/24 07:47 O2 Flow Rate 2 06/08/24 07:47 Oxygen Flow Rate 15 06/05/24 00:15 BMI result Body Mass Index 39.8 Const: General: cooperative, comfortable, alert and awake Nutritional Appearance: overweight Orientation/consciousness: patient oriented x3 Resp: Other: no wheeze Effort & Inspection: normal respiratory effort, able to speak in complete sentences, no respiratory distress and no use of accessory muscles Cardio: Rate: regular rate Neuro: Other: grossly nonfocal General: patient oriented x3 DS: Data Data Completed and Pending Completed studies during hospitalization [Text1]: Procedures Assistance with Respiratory Ventilation, Less than 24 Consecutive Hours, Continuous Positive Airway Pressure (05/01/24) Labs on day of discharge: Preliminary micro results at discharge 06/05/24 00:14 Blood Culture - Preliminary Blood - Venous No growth after 48 hours. 06/05/24 00:14 Blood Culture - Preliminary Blood - Venous No growth after 48 hours. Discharge Plan Discharge Anticipated Discharge Date/Time: 06/09/24 10:46 Patient Disposition: Home, Self-Care Discharge Diagnosis: copd exacerbation Referrals: Liyah Patterson MD [Primary Care Provider] - 1 Week Discharge Medications: New prednisone 20 mg tablet 40 mg PO DAILY 6 Days Qty: 12 0RF Continued ipratropium-albuterol 0.5 mg-3 mg(2.5 mg base)/3 mL solution for nebulization 3 ml inhalation Q4H PRN (Reason: for dyspnea) Qty: 180 11RF baclofen 15 mg Tablet 15 mg PO TID@0500,1200,1999 MDD 45 Trelegy Ellipta 200-62.5-25 mcg Blister With Device 1 inh INHALATION DAILY atorvastatin 80 mg tablet 80 mg PO DAILY@1999 hydrocodone-acetaminophen 5-325 mg tablet 1 tab PO BID PRN (Reason: Pain) fcrhaeojbw-rmxsfwnvpzypz-mtnb 50-325-40 mg tablet 1 tab PO DAILY MRX1 PRN (Reason: Headache) hyoscyamine sulfate 0.125 mg tablet 0.25 mg PO Q6H PRN (Reason: Abdominal Discomfort) gabapentin 300 mg capsule 1,200 mg PO TID@0500,1200,1999 oxcarbazepine 600 mg tablet 600 mg PO BID@050,1999 lorazepam 1 mg tablet 1 mg PO DAILY PRN (Reason: Anxiety) duloxetine 60 mg capsule,delayed release(DR/EC) 60 mg PO BID@050,1999 albuterol sulfate 90 mcg/actuation HFA aerosol inhaler 2 puff inhalation Q4H PRN (Reason: Shortness Of Breath Or Wheezing) furosemide 20 mg tablet 20 mg PO DAILY@0500 aspirin 81 mg tablet,delayed release (DR/EC) 81 mg PO DAILY@0500 verapamil 120 mg tablet 120 mg PO BID@050,1999 prazosin 2 mg capsule 2 mg PO DAILY@1999 No Action (DME) nebulizer and compressor Device See Rx Instructions .Route Qty: 1 0RF Rx Instructions: As directed (DME) Oxygen Home Use Kit See Rx Instructions .Route Rx Instructions: As directed Discharge Orders: Discharge Order (Routine); Ordered 06/09/24 Ordered By: Lelo Wallace Activity on Discharge: As tolerated Stand Alone Forms: Patient Portal Discharge page Print Language: Upper Sorbian Care Plan Goals: see below Health Concerns: Acute exacerbation of COPD Plan of Treatment: Recommend to complete course of oral prednisone as prescribed - prescription is for 6 days which would take you until your PCP appointment on June 15. As per our discussion, your preference would be to stop taking prednisone after three days and then see how you respond off steroids prior to your follow up appointment. Outpatient follow-up with PCP Continue all other baseline medications as prescribed Assessment: acute copd exacerbation
--- NOTE | 2024-06-08 16:17 | P.PNIM_ITS ---
Subjective Subjective Date of Service: 06/08/24 Interval History: Seen and examined this morning Follow-up for COPD exacerbation Patient reports improvement in breathing; hoping to go to acute rehab Review of Systems Review of Systems: Yes all other systems are reviewed and are negative Constitutional Constitutional: Denies chills and Denies fever(s) Cardiovascular Cardiovascular: Denies chest pain Physical Exam 2 Vital Signs: Vital Signs: Last Vital Signs Temp 97.1 F 06/08/24 15:12 Pulse 82 06/08/24 15:36 Resp 18 06/08/24 15:36 BP 151/70 H 06/08/24 15:12 Pulse Ox 95 06/08/24 15:12 O2 Del Method Nasal Cannula 06/08/24 15:12 O2 Flow Rate 2 06/08/24 15:12 Oxygen Flow Rate 15 06/05/24 00:15 BMI result Body Mass Index 39.8 Const: General: alert and awake Nutritional Appearance: overweight O rientation/consciousness: patient oriented x3 Resp: Other: no wheeze Effort & Inspection: normal respiratory effort, able to speak in complete sentences, no respiratory distress and no use of accessory muscles Cardio: Rate: regular rate GI: Inspection: No distended Palpation (GI): Soft to palpation Neuro: Other: Grossly nonfocal General: patient oriented x3 Objective Data Active Medications Acetaminophen (Acetaminophen 325 Mg Tablet) 650 mg PO Q6H PRN PRN Reason: Pain, Mild (Pain Scale 1-3), fever or headache Acetaminophen/Butalbital/Caffeine (Butalb/Acetamin/Caff 50/325/40 Tablet) 1 tab PO DAILY MRX1 PRN PRN Reason: Headache Last Admin: 06/07/24 03:36 Dose: 1 tab Documented By: LOUIE Albuterol/Ipratropium (Albuterol/Iprat 2.5/0.5mg 3 Ml Ampul.Neb) 3 ml INHALE RQ4H WHILE AWAKE [facility] Last Admin: 06/08/24 15:33 Dose: 3 ml Documented By: MARYLU Albuterol/Ipratropium (Albuterol/Iprat 2.5/0.5mg 3 Ml Ampul.Neb) 3 ml INHALE Q4H PRN PRN Reason: Shortness of Breath/Wheezing Aspirin (Aspirin Enteric Coated 81 Mg Tablet.Dr) 81 mg PO DAILY@0500 [facility] Last Admin: 06/08/24 04:39 Dose: 81 mg Documented By: BLAINE Atorvastatin Calcium (Atorvastatin Calcium 80 Mg Tablet) 80 mg PO DAILY@1999 [facility] Last Admin: 06/07/24 21:31 Dose: 80 mg Documented By: BLAINE Baclofen (Baclofen 10 Mg Tablet) 15 mg PO TID@0500,1199,1999 [facility] Last Admin: 06/08/24 13:45 Dose: 15 mg Documented By: TSERING Benzonatate (Benzonatate 100 Mg Capsule) 100 mg PO TID PRN PRN Reason: Cough Last Admin: 06/06/24 05:37 Dose: 100 mg Documented By: LOUIE Calcium Carbonate (Calcium Carbonate 750 Mg Tab.Chew) 750 mg PO Q4H PRN PRN Reason: Heartburn Duloxetine HCl (Duloxetine Hcl 60 Mg Capsule.Dr) 60 mg PO BID@499,1999 [facility] Last Admin: 06/08/24 04:40 Dose: 60 mg Documented By: BLAINE Fluticasone/Umeclidinium/Vilanterol (Fluticasone/Umeclidinium/Vilanterol 200/62.5/25 Blst.W.Dev) 1 puff INHALE RDAILY [facility] Last Admin: 06/08/24 07:43 Dose: 1 puff Documented By: MARYLU Furosemide (Furosemide 20 Mg Tablet) 20 mg PO DAILY@050 [facility]; Protocol Last Admin: 06/08/24 04:39 Dose: 20 mg Documented By: BLAINE Gabapentin (Gabapentin 400 Mg Capsule) 1,200 mg PO TID@499,1199,1999 [facility] Last Admin: 06/08/24 13:45 Dose: 1,200 mg Documented By: TSERING Lorazepam (Lorazepam 1 Mg Tablet) 1 mg PO DAILY PRN PRN Reason: Anxiety Last Admin: 06/07/24 22:51 Dose: 1 mg Documented By: BLAINE Magnesium Hydroxide (Milk Of Magnesia 30 Ml Oral.Susp) 30 ml PO DAILY PRN PRN Reason: Constipation Melatonin (Melatonin 3 Mg Tablet) 6 mg PO BEDTIME PRN PRN Reason: Insomnia Nystatin (Nystatin Powder 15 Gm Bottle) 1 appl TOPICAL BID [facility]; Protocol Last Admin: 06/08/24 08:31 Dose: 1 appl Documented By: TSERING Ondansetron HCl (Ondansetron Hcl 4 Mg/2 Ml Vial) 4 mg IVPUSH Q8H PRN PRN Reason: Nausea and Vomiting Last Admin: 06/08/24 00:12 Dose: 4 mg Documented By: BLAINE Oxcarbazepine (Oxcarbazepine 300 Mg Tablet) 600 mg PO BID@ [facility] Last Admin: 06/08/24 04:40 Dose: 600 mg Documented By: BLAINE Oxycodone HCl (Oxycodone Hcl Immed Release 5 Mg Tablet) 5 mg PO Q4H PRN PRN Reason: Pain, Severe (Pain Scale 7-10) Last Admin: 06/08/24 13:49 Dose: 5 mg Documented By: TSERING Prazosin HCl (Prazosin Hcl 1 Mg Capsule) 2 mg PO DAILY@1999 [facility]; Protocol Last Admin: 06/07/24 21:28 Dose: 2 mg Documented By: BLAINE Prednisone (Prednisone 20 Mg Tablet) 40 mg PO DAILY [facility] Sodium Chloride (0.9 % Sodium Chloride Flush 3 Ml Syringe) 3 ml IVFLUSH [facility] Last Admin: 06/08/24 08:31 Dose: 3 ml Documented By: TSERING Trolamine Salicylate (Trolamine Salicylate 10 % Cream 141 Gm Tube) 1 appl TOPICAL BID PRN; Protocol PRN Reason: right paravertebral muscles Verapamil HCl (Verapamil Hcl 120 Mg Tablet) 120 mg PO BID@ [facility]; Protocol Last Admin: 06/08/24 04:38 Dose: 120 mg Documented By: BLAINE Labs 06/06/24 05:42 06/06/24 05:42 Assessment and Plan (1) Acute exacerbation of chronic obstructive pulmonary disease: Status: Acute Plan 59-year-old female with pertinent history of chronic hypoxemic respiratory failure due to COPD on 2-3 L supplemental oxygen at baseline, hypertension, mixed hyperlipidemia, history of CVA, trigeminal neuralgia, mood disorder who presents to the emergency department for evaluation of dyspnea. #. Acute on chronic hypoxemic respiratory failure due to acute exacerbation of COPD Shortness of breath improved on baseline oxygen , 2 L at rest and 3L with activity and 1 L for sleep on iv steroids and scheduled + prn updrafts - Will transition to by mouth steroids from a.m. Leukocytosis likely due to steroids #. Acute lactic acidosis due to albuterol use and hypoxia resovled #. History of CVA/mixed hyperlipidemia: On aspirin and statin #. Hypertension: verapamil #. Trigeminal neuralgia: On baclofen, gabapentin, Tegretol, Cymbalta. Patient wants these medications at 05:00 #. Mood disorder: Continue home mood stabilizers #. Obesity class 2: Counseled regarding diet and exercise #. Lower extremity edema: On Lasix #. JUANITO: Noncompliant with NIV at home #. Weakness /FALL likely due to acute illness - not accepted at acute rehab; has decline [facility] DVT pptx -add mechanical device(pt educated on the reasoning for lovenox/heparin use while in the hospital, specifically on decreasing risk of VTE but despite this, she refuses citing prior bruising/hematoma secondary to lovenox) Full Code Reason for continued hospitalization: Need PT eval for safe disposition and for transitioning IV steroids to by mouth Quality Stroke Does the patient have a stroke diagnosis?: No VTE Prior VTE?: No VTE Risk Level:: Medical - moderate - high VTE Device Contraindication: Treatment Not Indicated VTE Drug Contraindication: N/A - Med Ordered
[2024-06-08] MEDS: Atorvastatin Calcium 80 MG TABLET PO (20:49)
[2024-06-08] MEDS: Prazosin HCL 1 MG CAPSULE 2 MG PO (20:50)
[2024-06-09] MEDS: oxyCODONE HCl Immed Release 5 MG TABLET PO ×3 (00:09→11:21)
[2024-06-09 04:00] VITALS: BP 128/70; PULSE 76; RESP 18; TEMP 36.5; O2SAT 94
[2024-06-09] MEDS: Gabapentin 400 MG CAPSULE 1200 MG PO (05:41)
[2024-06-09] MEDS: DULoxetine HCl 60 MG CAPSULE.DR PO (05:42)
[2024-06-09] MEDS: OXcarbazepine 300 MG TABLET 600 MG PO (05:42)
[2024-06-09] MEDS: Furosemide 20 MG TABLET PO (05:43)
[2024-06-09] MEDS: VerapamiL HCL 120 MG TABLET PO (05:44)
[2024-06-09] MEDS: Aspirin Enteric Coated 81 MG TABLET.DR PO (05:44)
[2024-06-09] MEDS: Baclofen 10 MG TABLET 15 MG PO (05:45)
[2024-06-09] MEDS: Fluticasone/Umeclidinium/Vilanterol 200/62.5/25 BLST.W.DEV 1 PUFF INHALE (07:33)
[2024-06-09] MEDS: Albuterol/Iprat 2.5/0.5MG 3 ML AMPUL.NEB INHALE ×2 (07:35→11:40)
[2024-06-09 07:36] VITALS: PULSE 78; RESP 18; O2SAT 94
[2024-06-09 08:00] VITALS: BP 142/60; PULSE 98; RESP 18; TEMP 36.4; O2SAT 93
[2024-06-09] MEDS: predniSONE 20 MG TABLET 40 MG PO (09:41)
[2024-06-09] MEDS: Nystatin Powder 15 GM BOTTLE 1 APPL TOPICAL (09:41)
[2024-06-09 11:40] VITALS: PULSE 83; RESP 18; O2SAT 95
--- NOTE | 2024-06-09 13:09 | MHC.CM.PN ---
CM MET WITH PT AND PT STILL STATES SHE DOES NOT FEEL READY TO GO HOME, HOWEVER REFUSES [facility] PTS ASKS HOW SHE CAN BE SENT HOME IF SHE MAY NOT BE SAFE CM EXPLAINED HOME WAS NOT RECOMMENDED, SHE WAS OFFERED STR AND HAS DECLINED CM ALSO EXPLAINED PT CANNOT BE FORCED INTO STR AFTER FURTHER DISCUSSION BETWEEN PT AND , PT AGREED TO GO HOME PT STATES THIS IS HER LAST TRIAL AT HOME AND IF SHE IS READMITTED OR UNSAFE, SHE WILL AGREE TO STR PT AWARE THERE ARE NO VNAS ACCEPTING DUE TO INSURANCE AND HISTORY OF NON-COMPLIANCE PTS WILL TRANSPORT
== END 2024-06-09 13:07 | disposition home or self-care (01) | DRG 140 ==
LOC: HO.ED 04:46 → HO.EDOVER 05:37 → HO.S3 07:35
PROVIDERS: Admitting Provider Student in an Organized Health Care Education/Training Program; Emergency Provider Emergency Medicine; PCP Family Medicine; Visit Provider Physician Assistant Medical
DX: J44.1 Chronic obstructive pulmonary disease with (acute) exacerbation (principal); J96.21 Acute and chronic respiratory failure with hypoxia; E87.21 Acute metabolic acidosis; Z99.81 Dependence on supplemental oxygen; E78.2 Mixed hyperlipidemia; I10 Essential (primary) hypertension; F39 Unspecified mood [affective] disorder; G50.0 Trigeminal neuralgia; E66.812 Obesity, class 2; Z68.39 Body mass index [BMI] 39.0-39.9, adult; Z71.3 Dietary counseling and surveillance; F17.210 Nicotine dependence, cigarettes, uncomplicated; Z71.6 Tobacco abuse counseling; Z20.822 Contact with and (suspected) exposure to COVID-19; Z86.73 Personal history of transient ischemic attack (TIA), and cerebral infarction without residual deficits; Z91.199 Patient's noncompliance with other medical treatment and regimen due to unspecified reason; Z79.82 Long term (current) use of aspirin; Z79.899 Other long term (current) drug therapy
CPT/HCPCS: 0241U; 36415; 71045; 80048; 80053; 82803; 83605; 83735; 83880; 84484; 85025; 85610; 87040; 93005; 93971; 94640; 97162; 99285; J0456; J0696; J1650; J1885; J2060; J2405; J2919; J3475

== ENCOUNTER → 2024-06-05 00:09 | Outpatient (BNV) | payer BC, SELFPAY | PROVIDERS: Admitting Provider Student in an Organized Health Care Education/Training Program; Emergency Provider Emergency Medicine; PCP Family Medicine; Visit Provider Internal Medicine Cardiovascular Disease | DX: R00.0 Tachycardia, unspecified (principal); R06.02 Shortness of breath; R94.31 Abnormal electrocardiogram [ECG] [EKG] | CPT/HCPCS: 93010 ==

== ENCOUNTER → 2024-06-05 05:24 | Outpatient (BNV) | payer BC, SELFPAY | PROVIDERS: Admitting Provider Student in an Organized Health Care Education/Training Program; Emergency Provider Emergency Medicine; PCP Family Medicine; Visit Provider Student in an Organized Health Care Education/Training Program | DX: J44.1 Chronic obstructive pulmonary disease with (acute) exacerbation (principal) | CPT/HCPCS: 99222; 99232; 99239; 99499 ==

== ENCOUNTER 2024-06-20 08:55 | Outpatient (AMB) | payer BC, SELFPAY ==
--- NOTE | 2024-06-20 09:15 | A.OFFVIS_ITS ---
Vital Signs 06/20/24 09:16 Height 5 ft 1 in Weight 200 lb 9.93 oz BMI 37.9 BP 120/76 Blood Pressure Location Lt brachial Position Sitting Pulse 67 Intake Visit Reasons: 4m follow up Intake Note: 4 month follow-up has been back in the hospital for COPD [employer] Required: No Allergies Iodinated Contrast Media [IV CONTRAST] Allergy (Intermediate, Verified 06/05/24 00:31) HIVES latex [LATEX] Allergy (Unknown, Verified 06/05/24 00:31) RASH adhesive tape Allergy (Verified 06/05/24 00:31) Rash morphine [MORPHINE] Adverse Reaction (Unknown, Verified 06/05/24 00:31) VOMITING Medication List - Last Reconciled 06/20/24 by Vladimir Thurman MD albuterol sulfate 90 mcg/actuation 2 puffs inhalation Q4H PRN aspirin 81 mg PO DAILY@0500 atorvastatin 80 mg PO DAILY@2000 baclofen 15 mg PO TID@0500,1200,1999 MDD 45 picbdojica-glevqioscpjbk-fncd 50-325-40 mg 1 tab PO DAILY MRX1 PRN calcium carbonate-vitamin D3 600 mg-5 mcg (200 unit) 1 tab PO DAILY duloxetine 60 mg PO BID@0500,1999 iiujbfqsymn-uzwjzmpqq-ddxzdvns 200-62.5-25 mcg (Trelegy Ellipta) 1 inh inhalation DAILY furosemide 20 mg PO DAILY@0500 gabapentin 1,200 mg PO TID@0500,1200,1999 hyoscyamine sulfate 0.25 mg PO Q6H PRN ipratropium-albuterol 0.5 mg-3 mg(2.5 mg base)/3 mL 3 mL inhalation Q4H PRN lorazepam 1 mg PO DAILY PRN nebulizer and compressor As directed oxcarbazepine 600 mg PO BID@0500,2000 Oxygen Home Use As directed prazosin 2 mg PO DAILY@2000 verapamil 120 mg PO BID@0500,2000 HPI Comments Details: Zulma comes for follow-up. She is admitted multiple times with COPD exacerbation he has time she had troponin elevation. Subsequently in February this year she underwent a myocardial perfusion imaging which was within normal limits. Echocardiogram showed hyperdynamic LVEF of greater than 70% with mild aortic stenosis. She was at 1 hospitalization also noted to have decompensated congestive heart failure. She is on low-dose Lasix therapy. She continues to exertional shortness of breath in his uses oxygen all the time. Also uses oxygen at nighttime. She denies any clear orthopnea although this is difficult to assess in her case. She denies any abdominal distension. No weight gain. Takes all her medications. No prolonged palpitation irregular heartbeat. No exertional chest pain. Being managed closely by Pulmonary team. [facility] Medical History Hypertension Chronic hypercapnic respiratory failure Aortic stenosis Obesity (BMI 30-39.9) Asthma Acute exacerbation of chronic obstructive pulmonary disease Chronic lung disease Hypogammaglobulinemia Smoker JUANITO (obstructive sleep apnea) Allergies Elevated troponin COPD (chronic obstructive pulmonary disease) Trigeminal neuralgia Pulmonary nodules Mixed hyperlipidemia Peripheral neuropathy Tobacco use disorder Mood disorder Surgical History History of esophagogastroduodenoscopy (EGD) History of colonoscopy History of lumbar discectomy History of tubal ligation History of excision of mass History of shoulder surgery Social History Household Members: Spouse Housing: [facility] Do you presently have visiting nurse or other home services: No Alcohol intake: current Alcohol intake frequency: holidays/special occasions only Alcohol type: hard liquor Comment: refusing bed alarm Patient Tobacco Use Status: Former Tobacco user Tobacco use type: Cigarette Cigarette Packs Per Day: 4 Cigarettes Per Day: 80.0 Years Smoked: 40 e-Cigarette/Vaping Use: Former Use Second Hand Smoke Exposure: No Substance Use Type: Marijuana Advance Directives Date on File: 03/09/23 service: No Review of Systems Const Denies chills, Denies fatigue, Denies fever(s), Denies frequent falls, Denies weakness, Denies weight gain and Denies weight loss ENT Denies dizziness Card Denies chest pain, Denies leg edema, Denies lightheadedness, Denies palpitations, Denies dyspnea, Denies dyspnea on exertion, Denies orthopnea and Denies other (loss of consciousness) Resp Denies cough, Denies dyspnea and Denies dyspnea on exertion GI Denies hematochezia and Denies change in stool character Musc Denies abnormal gait, Denies muscle weakness, Denies numbness, Denies radiating pain into limb and Denies tingling Neuro Denies abnormal gait, Denies dizziness, Denies frequent falls, Denies numbness, Denies tingling and Denies weakness Endo Denies fatigue and Denies palpitations Physical Exam Vital Signs: Last Vital Signs Pulse 67 06/20/24 09:16 BP 120/76 06/20/24 09:16 BMI result Body Mass Index 37.9 Const General: cooperative, comfortable, alert and awake Nutritional Appearance: obese Orientation/consciousness: patient oriented x3 Limitations: ambulation with cane Neck Neck: Yes trachea midline and Yes no JVD Resp Effort & Inspection: normal respiratory effort Auscultation: no rales, no wheezes and diminished lung sounds Cardio Jugular venous distension: no JVD Rate: regular rate Rhythm: regular rhythm Heart sounds: S1 normal heart sound present, S2 normal heart sound present, no click, no gallops and Murmur heart sound present systolic early GI Auscultation: normal bowel sounds Neuro General: patient oriented x3 and no focal motor deficits Extrem General: No clubbing, No cyanosis and Yes edema Assessment & Plan Assessment & Plan (1) Chronic hypercapnic respiratory failure: Code(s): J96.12 - Chronic respiratory failure with hypercapnia Category: Medical Plan: Patient with chronic respiratory failure secondary to severe COPD, using oxygen all the time. Doing well at current point time. Being followed closely by Pulmonary. Advised to continue optimize pulmonary function. Has bilateral lower extremity edema which appears to be more dependent edema. Although heart failure is difficult to assess will need to be ruled out. Will obtain a BNP today. Further management with additional diuretics if need be based on the BNP findings. This was discussed with the patient patient is worried about diuretic regimen due to her kidney functions which appear to be normal. (2) Aortic stenosis: Code(s): I35.0 - Nonrheumatic aortic (valve) stenosis Category: Medical Plan: Aortic stenosis which is mild. Continue low-dose aspirin therapy continue aggressive vascular risk factor modification. Currently on high-intensity statin therapy. Continue the same. Target goal LDL less than 70 mg/dL. Continue aggressive blood pressure control, see below. (3) Hypertension: Code(s): I10 - Essential (primary) hypertension Category: Medical Qualifiers: Hypertension type: primary hypertension Qualified Code(s): I10 - Essential (primary) hypertension Plan: Hypertension which is well controlled. Continue current therapy with verapamil as well as prazosin. Also on low-dose Lasix therapy. Avoidance of salt loading was discussed. Continue monitor blood pressure at home maintain a log. Goal blood pressure less than 130/84. Will follow up in the clinic in 10 months time after echocardiogram. Thank you for allowing me to partake in her care Orders: Orders B Type Natriuretic Peptide Today J96.12 - Chronic respiratory failure with hypercapnia CA echo transthoracic complete 9 Months I35.0 - Nonrheumatic aortic (valve) stenosis Coding Level of Care Code Est Pt Level 4 (53862) Complex EM visit Add On G2211 Diagnoses Chronic hypercapnic respiratory failure J96.12 Aortic stenosis I35.0 Primary hypertension I10 Hypertension type: primary hypertension
[2024-06-20 09:16] VITALS: BP 120/76; PULSE 67; BMI 37.9
== END 2024-06-20 09:49 | disposition home or self-care (01) ==
PROVIDERS: PCP Registered Nurse; Visit Provider Internal Medicine Cardiovascular Disease
DX: J96.12 Chronic respiratory failure with hypercapnia (principal); I35.0 Nonrheumatic aortic (valve) stenosis; I10 Essential (primary) hypertension
CPT/HCPCS: 99214

== ENCOUNTER 2024-07-02 02:45 | Inpatient (IN) | payer BC, SELFPAY ==
[2024-07-02] VITALS (14 sets, daily range): BP systolic 125–176; BP diastolic 60–110; PULSE 60–92; RESP 12–29; TEMP 36.1–37; O2SAT 62–97; BMI 47.2
--- NOTE | ~2024-07-02 | XR_ITS ---
CLINICAL HISTORY: sob 1 view chest x-ray Comparison: CR/SR - XR CHEST 1V - 06/05/24 00:09 EST Findings: No consolidation or effusion. Heart size is normal. No acute fracture. IMPRESSION: 1. No acute findings. This document has been electronically signed by: Kimberly Desai MD on 07/02/2024 04:32:13
--- NOTE | 2024-07-02 02:50 | ECG_ITS ---
Test Reason : SOB Blood Pressure : */* mmHG Vent. Rate : 92 BPM Atrial Rate : 92 BPM P-R Int : 140 ms QRS Dur : 88 ms QT Int : 366 ms P-R-T Axes : 64 65 24 degrees QTcB Int : 452 ms Normal sinus rhythm Normal ECG When compared with ECG of 05-Jun-2024 00:09, No significant change was found Referred By: Juli Aleman Electronically Signed By: Eladio Nelson
[2024-07-02] MEDS: 0.9 % Sodium Chloride 1,000 ML 999 ML IVCONT (02:58)
[2024-07-02] MEDS: Magnesium Sulfate/H2O 2 GM/50 ML PIGGYBACK IV (03:00)
--- NOTE | 2024-07-02 03:00 | PC.NURSE ---
pt biba from home, a&ox4, respirations even but labored, pt noted to have bilateral expiratory wheezing, bilateral lung tightness noted. pt reports she had been 70% on room air, given self duo neb and brought up to 80%. on ems arrival, pt placed on another duoneb and 4L nasal cannula brought up to 95%. respiratory and provider at bedside. 20G placed in right ac by ems, solumedrol given, 22G placed in left forearm. normal sinus on tele.
[2024-07-02] MEDS: 0.9 % Sodium Chloride 2,000 ML 999 ML IVCONT (03:04)
--- NOTE | 2024-07-02 03:05 | ED.SOB ---
HPI - SOB/Dyspnea General Chief Complaint: Dyspnea Stated Complaint: SOB, COPD Time Seen by Provider: 07/02/24 02:50 Source: patient and EMS Mode of arrival: EMS Limitations: no limitations History of Present Illness ED Provider: Dr. Juli Aleman HPI Narrative: Patient comes to the emergency room complaining of shortness of breath starting today. According to the patient, the shortness of breath worsened tonight. Patient was 70% on room air while she was giving herself a DuoNeb. Patient is supposed to be using 2-3 L of oxygen. Patient states she has been coughing quite a bit. EMS gave her a DuoNeb and 125 mg of Solu-Medrol. Patient denies fever or chills, denies chest pain. Related Data Home Medications ?Medication ?Instructions ?Recorded ?Confirmed atorvastatin 80 mg tablet 80 mg PO DAILY@199903/04/23 06/20/24 binjxrskqg-zfqyfqaoqyxnc-xlpatvnw 1 tab PO DAILY MRX1 PRN Headache 03/04/23 06/20/24 50 mg-325 mg-40 mg tablet duloxetine 60 mg capsule,delayed 60 mg PO BID@0500,199903/04/23 06/20/24 release gabapentin 300 mg capsule 1,200 mg PO TID@0500,1200,199903/04/23 06/20/24 hyoscyamine sulfate 0.125 mg tablet 0.25 mg PO Q6H PRN Abdominal 03/04/23 06/20/24 Discomfort lorazepam 1 mg tablet 1 mg PO DAILY PRN Anxiety 03/04/23 06/20/24 oxcarbazepine 600 mg tablet 600 mg PO BID@0500,199903/04/23 06/20/24 Oxygen Home Use 04/16/23 03/10/24 prazosin 2 mg capsule 2 mg PO DAILY@199904/16/23 06/20/24 baclofen 15 mg tablet 15 mg PO TID@0500,1200,199901/10/24 06/20/24 albuterol sulfate 90 mcg/actuation 2 puff inhalation Q4H PRN 01/31/24 06/20/24 aerosol inhaler Shortness Of Breath Or Wheezing fluticasone fur. 200 mcg-umeclid 1 inh inhalation DAILY 02/14/24 06/20/24 62.5 mcg-vilant 25 mcg inhalat.powder (Trelegy Ellipta) furosemide 20 mg tablet 20 mg PO DAILY@0500 05/01/24 06/20/24 aspirin 81 mg tablet,delayed 81 mg PO DAILY@0500 05/22/24 06/20/24 release calcium 600 mg (as 1 tab PO DAILY 06/20/24 06/20/24 carbonate)-vitamin D3 5 mcg (200 unit) tablet Previous Rx's ?Medication ?Instructions ?Recorded nebulizer and compressor #1 ea 12/16/23 ipratropium 0.5 mg-albuterol 3 mg 3 ml inhalation Q4H PRN for 03/02/24 (2.5 mg base)/3 mL nebulization dyspnea #180 mL soln verapamil 120 mg tablet 120 mg PO BID 30 days #60 tabs 06/20/24 Allergies Allergy/AdvReac Type Severity Reaction Status Date / Time Iodinated Contrast Media Allergy Intermediate HIVES Verified 07/02/24 02:56 [IV CONTRAST] latex [LATEX] Allergy Unknown RASH Verified 07/02/24 02:56 adhesive tape Allergy Rash Verified 07/02/24 02:56 morphine [MORPHINE] AdvReac Unknown VOMITING Verified 07/02/24 02:56 Review of Systems Review of Systems: Constitutional : No Weight loss, No Fever, No Chills, No Night Sweats, No Fatigue, No Malaise ENT/Mouth : No Hearing loss, No Ear Pain, No Nasal Congestion, No Sinus Pain, No Hoarseness, No sore throat, No Rhinorrhea, No Swallowing Difficulty Eyes: No Eye Pain, No Swelling, No Redness, No Foreign Body, No Discharge, No Vision Changes Cardiovascular : No Chest Pain, No SOB, No Dyspnea on Exertion, No Orthopnea, No Edema, No Palpitations Respiratory : Complaining of cough, wheezing, shortness of breath worse with exertion Gastrointestinal : No Nausea, No Vomiting, No Diarrhea, No Constipation, No abdominal Pain, No Hematochezia, No Melena Genitourinary : no irregular bleeding, No Dysuria, No Urinary Frequency, No Hematuria, No Urinary Incontinence, No Urgency, No Flank Pain, No Urinary Flow Changes, No Hesitancy Musculoskeletal : No joint pain, No Myalgias, No Joint Swelling Skin : No Skin Lesions, No rash Neuro : No Weakness, No Numbness, No Paresthesias, No Loss of Consciousness, No Dizziness, No Headache Psych : No Anxiety/Panic, No Depression, No SI/HI/AH/VH, No Social Issues, Heme/Lymph: No Bruising, No Bleeding,No Lymphadenopathy Endocrine : No Polyuria, No Polydipsia, No Temperature Intolerance [facility] Past Medical History Medical History Hypertension Chronic hypercapnic respiratory failure Aortic stenosis Obesity (BMI 30-39.9) Asthma Acute exacerbation of chronic obstructive pulmonary disease Chronic lung disease Hypogammaglobulinemia Smoker JUANITO (obstructive sleep apnea) Allergies Elevated troponin COPD (chronic obstructive pulmonary disease) Trigeminal neuralgia Pulmonary nodules Mixed hyperlipidemia Peripheral neuropathy Tobacco use disorder Mood disorder Surgical History History of esophagogastroduodenoscopy (EGD) History of colonoscopy History of lumbar discectomy History of tubal ligation History of excision of mass History of shoulder surgery Social History Social History Household Members: Spouse Housing: Condominium Do you presently have visiting nurse or other home services: No Alcohol intake: current Alcohol intake frequency: holidays/special occasions only Alcohol type: hard liquor Comment: refusing bed alarm Patient Tobacco Use Status: Former Tobacco user Tobacco use type: Cigarette Cigarette Packs Per Day: 4 Cigarettes Per Day: 80.0 Years Smoked: 40 Smoked in Last 30 Days: No e-Cigarette/Vaping Use: Former Use Second Hand Smoke Exposure: No Use of substances other than those prescribed or required for medical reasons: No Substance Use Type: Marijuana Advance Directives: Yes Advance Directives on File: Yes Advance Directives Date on File: 03/09/23 Do you have a plan to hurt others: No Plan Patient : No service: No Physical Exam Vital Signs: Vital Signs: Last Vital Signs Temp 97.5 F 07/02/24 05:46 Pulse 88 07/02/24 05:46 Resp 22 H 07/02/24 05:46 BP 164/92 H 07/02/24 05:46 Pulse Ox 92 07/02/24 05:46 O2 Del Method Nasal Cannula 07/02/24 05:46 O2 Flow Rate 3 07/02/24 05:46 Oxygen Flow Rate 4 07/02/24 02:48 BMI result Body Mass Index 47.2 Const: Other: Appearance: Alert. Oriented X3, seems uncomfortable Eyes: Pupils equal, round and reactive to light. ENT: Pharynx normal. Neck: Normal inspection. Neck supple. No lymph nodes noted. No crepitus CVS: Normal heart rate and rhythm. Pulses normal. Normal S1 and S2 Respiratory: Tachypneic, moderate air movement, oxygen saturation 93% on L, bilateral wheezing Abdomen: Soft and nontender. No rigidity. No distention. Skin: Skin warm and dry. Normal skin color. Normal skin turgor. Extremities: No lower extremity edema. No Lacerations. No Rash Neuro: Oriented X 3. No motor deficit. No sensory deficit. Moving all extremities. No slurred speech. CN 2 through 12 grossly intact Psych: calm, cooperative, normal affect Course Course Course Narrative: All of patient's labs pending Patient was giving empirically 2 L of normal saline, based on ideal weight of 46 kg, IV ceftriaxone and azithromycin given patient's past medical history. Also, patient receiving more nebulization treatments, already received Solu-Medrol, getting magnesium at this time as well. At this time patient has no fever. Patient's vitals stable, tachypneic (respiratory rate 29) with an oxygen saturation of 93% on nasal cannula Medications Administered Discontinued Medications Generic Name Dose Route Start Last Admin Trade Name Freq PRN Reason Stop Dose Admin Albuterol Sulfate 7.5 mg/ 10 mg 07/02/24 03:02 07/02/24 03:10 Albuterol Sulfate 2.5 mg INHALE 07/02/24 03:03 10 mg ONCE ONE Administration Ceftriaxone Sodium 1 gm 07/02/24 02:59 07/02/24 03:23 Ceftriaxone Sodium 1 Gm Vial IVPUSH 07/02/24 03:00 1 gm ONCE ONE Administration Sodium Chloride 1,000 mls @ 999 mls/hr 07/02/24 02:50 07/02/24 03:05 Ns IVCONT 07/02/24 03:50 Infused .Q1H1M ONE Infusion Magnesium Sulfate 2 gm in 50 mls @ 25 mls/hr 07/02/24 02:51 07/02/24 05:43 Magnesium Sulfate/H2o IV 07/02/24 04:50 Infused ONCE ONE Infusion Azithromycin 500 mg/ Sodium 250 mls @ 125 mls/hr 07/02/24 02:59 07/02/24 05:43 Chloride IV 07/02/24 04:58 Infused ONCE ONE Infusion Sodium Chloride 2,000 mls @ 999 mls/hr 07/02/24 03:00 07/02/24 05:05 Ns IVCONT 07/02/24 05:00 Infused .Q2H1M ONE Infusion Medical Decision Making Medical Decision Making [facility] Narrative: My interpretation of EKG: Normal sinus rhythm, heart rate 92, no ST segment depression or elevation, nonspecific T-wave inversion in lead 3, QTC 452 Labs: No significant abnormality in patient's hematology chemistry blood gases, serology negative for influenza RSV COVID Chest x-ray does not show any acute abnormality. Patient received IV fluids, ceftriaxone, azithromycin, EMS gave the patient Solu-Medrol. Patient received also here more nebulization treatments and magnesium After the above-mentioned treatment, patient started feeling better. We tried discharging the patient. However, on ambulation with 3 L, oxygen saturation decreased to 87%, patient started wheezing again. I discussed the patient with Dr. Wilkes, patient being admitted Differential Diagnosis Differential Diagnoses: The differential diagnosis associated with the presentation includes (Asthma, chronic lung disease, pneumonia) Admission/Observation Consideration of admission/observation: Escalation of care including admission/observation considered Consult Healthcare Provider Management of the patient was discussed with: Hospitalist Lab Data [facility] Lab Attestation statement: I reviewed the patient's lab results. 07/02/24 03:09 07/02/24 03:09 Labs: Lab Results 07/02/24 07/02/24 07/02/24 Range/Units 03:08 03:09 03:15 WBC 6.8 (4.8-10.8) X10*3/uL RBC 4.04 L (4.20-5.50) X10*6/uL Hgb 12.7 (12.0-16.0) g/dl Hct 39.2 (37.0-47.0) % MCV 97.0 (80.0-98.0) fL MCH 31.4 (27.0-33.0) pg MCHC 32.4 (31.0-35.0) g/dl RDW 13.8 (11.0-16.0) % Plt Count 304 (160-400) X10*3/uL MPV 8.9 L (9.4-12.3) fL Immature Gran % (Auto) 0.3 (0.0-0.4) % Neut % (Auto) 48.7 (45-73) % Lymph % (Auto) 33.9 (20-40) % [place] % (Auto) 12.1 H (2-11) % Eos % (Auto) 4.4 H (0-4) % Baso % (Auto) 0.6 (0-2) % Lymph # (Auto) 2.3 (1.2-4.9) X10*3/uL [place] # (Auto) 0.8 (0.1-1.2) X10*3/uL Eos # (Auto) 0.3 (0.0-0.4) X10*3/uL Baso # (Auto) 0.0 (0.0-0.2) X10*3/uL Abs Immat Gran (auto) 0.02 (0.00-0.03) X10*3/uL Absolute Neuts (auto) 3.3 (2.0-8.3) x10*3/uL Absolute Nucleated RBC 0.000 (0.0-0.012) X10*3/uL Nucleated RBC % (auto) 0.0 (0.0-0.2) /100WBC PT 10.1 L (10.9-12.4) SEC INR 0.9 (0.9-1.1) VBG pH 7.40 (7.32-7.43) VBG pCO2 50 mmHg VBG pO2 68 mmHg VBG HCO3 31 H (22-26) mmol/L VBG O2 Saturation 91.0 % VBG Base Excess 5.6 mmol/L Sodium 144 (135-145) mmol/L Potassium 3.9 (3.3-5.1) mmol/L Chloride 107 (96-108) mmol/L Carbon Dioxide 26 (22-29) mmol/L Anion Gap 15 (12-20) BUN 15 (9-16) mg/dL Creatinine 0.79 (0.5-1.4) mg/dL Estim Creat Clear Calc 87.3 Estimated GFR > 60 Random Glucose 100 (60-115) mg/dL Lactic Acid 1.7 (0.5-2.0) mmol/L Calcium 9.0 (8.4-10.2) mg/dL Total Bilirubin 0.2 (0.0-1.0) mg/dL Direct Bilirubin < 0.2 (0.0-0.5) mg/dL AST 33 H (5-31) U/L ALT 20 (0-31) U/L Alkaline Phosphatase 68 (39-117) U/L Troponin I High Sens 10.1 (<3.5-17.0) ng/L B-Natriuretic Peptide 41 (<100) pg/mL Total Protein 7.6 (6.5-8.0) g/dL Albumin 3.9 (3.5-5.0) g/dL Influenza Type A (PCR) NEGATIVE (Negative) Influenza Type B (PCR) NEGATIVE (Negative) RSV RNA Qual (PCR) NEGATIVE (Negative) SARS-CoV-2 RNA (RT-PCR) NEGATIVE (Negative) Independent Interpretation I performed an independent interpretation of an: Plain X-Ray Radiology Impression Discussion of test interpretation with radiology: I have reviewed the radiologist's reading. Radiologist Impression: No consolidation or effusion. Heart size is normal. No acute fracture. IMPRESSION: 1. No acute findings. Critical Care Time Critical Care Time Critical Care Time: Yes Total Critical Care Time: 60 Attestation: I have personally provided critical care time. Time includes review of lab data, radiology results, discussion with consultants, and monitoring for potential decompensation. Intervention performed as documented. Discharge Plan Discharge Clinical Impression: Chronic lung disease Patient Disposition: Admitted As Inpatient Prescriptions: No Action ipratropium-albuterol 0.5 mg-3 mg(2.5 mg base)/3 mL solution for nebulization 3 ml inhalation Q4H PRN (Reason: for dyspnea) Qty: 180 11RF verapamil 120 mg tablet 120 mg PO BID 30 Days Qty: 60 6RF baclofen 15 mg Tablet 15 mg PO TID@0500,1200,1999 MDD 45 Trelegy Ellipta 200-62.5-25 mcg Blister With Device 1 inh INHALATION DAILY atorvastatin 80 mg tablet 80 mg PO DAILY@1999 dzikoibxak-boignuxexchuz-yxoz 50-325-40 mg tablet 1 tab PO DAILY MRX1 PRN (Reason: Headache) hyoscyamine sulfate 0.125 mg tablet 0.25 mg PO Q6H PRN (Reason: Abdominal Discomfort) gabapentin 300 mg capsule 1,200 mg PO TID@0500,1200,1999 oxcarbazepine 600 mg tablet 600 mg PO BID@499,1999 lorazepam 1 mg tablet 1 mg PO DAILY PRN (Reason: Anxiety) duloxetine 60 mg capsule,delayed release(DR/EC) 60 mg PO BID@499,1999 (DME) nebulizer and compressor Device See Rx Instructions .Route Qty: 1 0RF Rx Instructions: As directed albuterol sulfate 90 mcg/actuation HFA aerosol inhaler 2 puff inhalation Q4H PRN (Reason: Shortness Of Breath Or Wheezing) furosemide 20 mg tablet 20 mg PO DAILY@0500 aspirin 81 mg tablet,delayed release (DR/EC) 81 mg PO DAILY@0500 calcium carbonate-vitamin D3 600 mg-5 mcg (200 unit) tablet 1 tab PO DAILY prazosin 2 mg capsule 2 mg PO DAILY@1999 (DME) Oxygen Home Use Kit See Rx Instructions .Route Rx Instructions: As directed Print Language: Georgian
[2024-07-02] MEDS: Albuterol Sulfate 7.5 MG, Albuterol Sulfate (0.083%) 2.5 MG 10 MG INHALE (03:10)
[2024-07-02 03:15] LABS: MANUAL DIFF FLAG NO
[2024-07-02 03:17] LABS: Basophils Percent Auto 0.6 % (0-2); Eosinophils Absolute Auto 0.3 X10*3/uL (0.0-0.4); Eosinophils Percent Auto 4.4 % (0-4); Hematocrit 39.2 % (37.0-47.0); Hemoglobin 12.7 g/dl (12.0-16.0); Imm Gran Abs Auto 0.02 X10*3/uL (0.00-0.03); Imm Gran Pct Auto 0.3 % (0.0-0.4); Lymphocytes Absolute Auto 2.3 X10*3/uL (1.2-4.9); Lymphocytes Percent Auto 33.9 % (20-40); Mean Corpuscular HGB Conc 32.4 g/dl (31.0-35.0); Mean Corpuscular Hemoglobin 31.4 pg (27.0-33.0); Mean Platelet Volume 8.9 fL (9.4-12.3); Monocytes Absolute Auto 0.8 X10*3/uL (0.1-1.2); Monocytes Percent Auto 12.1 % (2-11); Neutrophils Absolute Auto 3.3 x10*3/uL (2.0-8.3); Neutrophils Percent Auto 48.7 % (45-73); Platelet Count 304 X10*3/uL (160-400); Red Blood Count 4.04 X10*6/uL (4.20-5.50); Red Cell Distribution Width 13.8 % (11.0-16.0); White Blood Count 6.8 X10*3/uL (4.8-10.8)
[2024-07-02 03:20] LABS: Venous Blood Gas Refer to POC result
[2024-07-02 03:22] LABS: VBG Base Excess 5.6 mmol/L; VBG HCO3 31 mmol/L (22-26); VBG pCO2 50 mmHg; VBG pO2 68 mmHg
[2024-07-02] MEDS: cefTRIAXone sodium 1 GM VIAL IVPUSH (03:23)
[2024-07-02 03:28] LABS: INTERNATIONAL NORM RATIO 0.9 (0.9-1.1); Prothrombin Time 10.1 SEC (10.9-12.4)
[2024-07-02 03:37] LABS: Lactic Acid 1.7 mmol/L (0.5-2.0)
[2024-07-02 03:38] LABS: Troponin-I High Sensitivity 10.1 ng/L (<3.5-17.0)
[2024-07-02] MEDS: Azithromycin 500 MG in 0.9 % Sodium Chloride 250 ML 125 MG IV (03:38)
[2024-07-02 03:40] LABS: Alanine Aminotransferase 20 U/L (0-31); Albumin Level 3.9 g/dL (3.5-5.0); Alkaline Phosphatase 68 U/L (39-117); Anion Gap 15 (12-20); Aspartate Amino Transferase 33 U/L (5-31); B Type Natriuretic Peptide 41 pg/mL (<100); Bilirubin Direct < 0.2 mg/dL (0.0-0.5); Bilirubin Total 0.2 mg/dL (0.0-1.0); Blood Urea Nitrogen 15 mg/dL (9-16); Carbon Dioxide 26 mmol/L (22-29); Chloride 107 mmol/L (96-108); Creatinine Clr Calc Pharmacy 87.3; Estimated Glomerular Filt Rate > 60; Glucose Random 100 mg/dL (60-115); Potassium 3.9 mmol/L (3.3-5.1); Sodium 144 mmol/L (135-145); Total Protein 7.6 g/dL (6.5-8.0)
[2024-07-02 03:59] LABS: Influenza A PCR NEGATIVE (Negative); Influenza B PCR NEGATIVE (Negative); Resp Syncy Virus RNA Qual PCR NEGATIVE (Negative); SARS COV2 PCR INHOUSE NEGATIVE (Negative)
--- NOTE | 2024-07-02 05:41 | PC.NURSE ---
ambulation trial completed, pt noted to de sat to 88%, pt noted to be short of breath and wheezing.
--- NOTE | 2024-07-02 06:03 | PM.IMHP ---
History of Present Illness Date of Service: 07/02/24 Chief Complaint: Dyspnea This is a 59-year-old female with pertinent history of chronic hypoxemic respiratory failure due to COPD on 2-3 L supplemental oxygen at baseline, hypertension, mixed hyperlipidemia, history of CVA, trigeminal neuralgia, mood disorder, lower extremity edema who presents to the emergency department for evaluation of dyspnea. Patient states her symptoms started 1 day prior to presentation. Patient is having dyspnea which is worse with exertion. Also has been having dry cough and associated wheezing. No improvement with home inhaler. She uses 1-2 L supplemental oxygen at rest and 3 L supplemental oxygen during exertion. Patient was found satting 70% on room air. No fever, chills, chest pain, palpitations, abdominal pain, leg edema, PND, orthopnea, changes in urinary or bowel habits. In the emergency department, patient back on her 3 L baseline supplemental oxygen but wheezing, tachypneic despite multiple DuoNeb treatments. Review of Systems Constitutional: Constitutional: Reports fatigue Cardiovascular: Cardiovascular: Reports dyspnea on exertion Respiratory: Respiratory: Reports cough, Reports dyspnea on exertion and Reports wheezing Gastrointestinal: Gastrointestinal: Reports no additional gastrointestinal complaints Genitourinary: Genitourinary: Reports no additional female genitourinary complaints Endocrine: Endocrine: Reports fatigue Allergic/Immunologic: Allergic/Immunologic: Reports wheezing [facility] Medical History Hypertension Chronic hypercapnic respiratory failure Aortic stenosis Obesity (BMI 30-39.9) Asthma Acute exacerbation of chronic obstructive pulmonary disease Chronic lung disease Hypogammaglobulinemia Smoker JUANITO (obstructive sleep apnea) Allergies Elevated troponin COPD (chronic obstructive pulmonary disease) Trigeminal neuralgia Pulmonary nodules Mixed hyperlipidemia Peripheral neuropathy Tobacco use disorder Mood disorder Surgical History History of esophagogastroduodenoscopy (EGD) History of colonoscopy History of lumbar discectomy History of tubal ligation History of excision of mass History of shoulder surgery Social History Household Members: [facility] Do you presently have visiting nurse or other home services: No Alcohol intake: current Alcohol intake frequency: holidays/special occasions only Alcohol type: hard liquor Comment: refusing bed alarm Patient Tobacco Use Status: Former Tobacco user Tobacco use type: Cigarette Cigarette Packs Per Day: 4 Cigarettes Per Day: 80.0 Years Smoked: 40 Smoked in Last 30 Days: No e-Cigarette/Vaping Use: Former Use Second Hand Smoke Exposure: No Use of substances other than those prescribed or required for medical reasons: No Substance Use Type: Marijuana Advance Directives: Yes Advance Directives on File: Yes Advance Directives Date on File: 03/09/23 Do you have a plan to hurt others: No Plan Patient : No service: No Meds Allergies Allergy/AdvReac Type Severity Reaction Status Date / Time Iodinated Contrast Media Allergy Intermediate HIVES Verified 07/02/24 02:56 [IV CONTRAST] latex [LATEX] Allergy Unknown RASH Verified 07/02/24 02:56 adhesive tape Allergy Rash Verified 07/02/24 02:56 morphine [MORPHINE] AdvReac Unknown VOMITING Verified 07/02/24 02:56 Home Medications ?Medication ?Instructions ?Recorded ?Confirmed ?Last Taken ?Type atorvastatin 80 mg tablet 80 mg PO DAILY@199903/04/23 06/20/24 06/04/24 History wbzomuosri-anrogfpndwspq-jrmxldtp 1 tab PO DAILY MRX1 PRN Headache 03/04/23 06/20/24 05/21/24 20:00 History 50 mg-325 mg-40 mg tablet duloxetine 60 mg capsule,delayed 60 mg PO BID@0500,199903/04/23 06/20/24 06/04/24 History release gabapentin 300 mg capsule 1,200 mg PO TID@0500,1200,199903/04/23 06/20/24 06/04/24 History hyoscyamine sulfate 0.125 mg tablet 0.25 mg PO Q6H PRN Abdominal 03/04/23 06/20/24 05/21/24 20:00 History Discomfort lorazepam 1 mg tablet 1 mg PO DAILY PRN Anxiety 03/04/23 06/20/24 05/21/24 20:00 History oxcarbazepine 600 mg tablet 600 mg PO BID@0500,199903/04/23 06/20/24 06/04/24 History Oxygen Home Use 04/16/23 03/10/24 03/10/24 History prazosin 2 mg capsule 2 mg PO DAILY@199904/16/23 06/20/24 06/04/24 History baclofen 15 mg tablet 15 mg PO TID@0500,1200,2000 01/10/24 06/20/24 06/04/24 History albuterol sulfate 90 mcg/actuation 2 puff inhalation Q4H PRN 01/31/24 06/20/24 05/21/24 20:00 History aerosol inhaler Shortness Of Breath Or Wheezing fluticasone fur. 200 mcg-umeclid 1 inh inhalation DAILY 02/14/24 06/20/24 06/04/24 History 62.5 mcg-vilant 25 mcg inhalat.powder (Trelegy Ellipta) furosemide 20 mg tablet 20 mg PO DAILY@0500 05/01/24 06/20/24 06/04/24 History aspirin 81 mg tablet,delayed 81 mg PO DAILY@0500 05/22/24 06/20/24 06/04/24 History release calcium 600 mg (as 1 tab PO DAILY 06/20/24 06/20/24 Unknown History carbonate)-vitamin D3 5 mcg (200 unit) tablet Physical Exam Vital Signs and Narrative: Vital Signs: Last Vital Signs Temp 97.5 F 07/02/24 05:46 Pulse 88 07/02/24 05:46 Resp 22 H 07/02/24 05:46 BP 164/92 H 07/02/24 05:46 Pulse Ox 92 07/02/24 05:46 O2 Del Method Nasal Cannula 07/02/24 05:46 O2 Flow Rate 3 07/02/24 05:46 Oxygen Flow Rate 4 07/02/24 02:48 BMI result Body Mass Index 47.2 Middle-aged female lying in bed in mild distress on supplemental oxygen Neck supple, no JVD Regular rate and rhythm, S1-S2 heard Bilateral wheezing appreciated Abdomen soft nontender, no guarding, no rigidity Patient is awake, alert and oriented to self, place, time and person ; no focal motor deficit Psych: Normal mood No pedal edema Results Labs 07/02/24 03:09 07/02/24 03:09 Labs: Laboratory Results - last 24 hr 07/02/24 07/02/24 07/02/24 03:08 03:09 03:15 MCV 97.0 MCH 31.4 MCHC 32.4 RDW 13.8 Plt Count 304 MPV 8.9 L Immature Gran % (Auto) 0.3 Neut % (Auto) 48.7 Lymph % (Auto) 33.9 [place] % (Auto) 12.1 H Eos % (Auto) 4.4 H Baso % (Auto) 0.6 Lymph # (Auto) 2.3 [place] # (Auto) 0.8 Eos # (Auto) 0.3 Baso # (Auto) 0.0 Abs Immat Gran (auto) 0.02 Absolute Neuts (auto) 3.3 Absolute Nucleated RBC 0.000 Nucleated RBC % (auto) 0.0 PT 10.1 L INR 0.9 VBG pH 7.40 VBG pCO2 50 VBG pO2 68 VBG HCO3 31 H VBG O2 Saturation 91.0 VBG Base Excess 5.6 Anion Gap 15 Estim Creat Clear Calc 87.3 Estimated GFR > 60 Random Glucose 100 Lactic Acid 1.7 Calcium 9.0 Total Bilirubin 0.2 Direct Bilirubin < 0.2 AST 33 H ALT 20 Alkaline Phosphatase 68 Troponin I High Sens 10.1 B-Natriuretic Peptide 41 Total Protein 7.6 Albumin 3.9 Influenza Type A (PCR) NEGATIVE Influenza Type B (PCR) NEGATIVE RSV RNA Qual (PCR) NEGATIVE SARS-CoV-2 RNA (RT-PCR) NEGATIVE Assessment and Plan (1) Acute exacerbation of chronic obstructive pulmonary disease: Status: Acute Plan This is a 59-year-old female with pertinent history of chronic hypoxemic respiratory failure due to COPD on 2-3 L supplemental oxygen at baseline, hypertension, mixed hyperlipidemia, history of CVA, trigeminal neuralgia, mood disorder who presents to the emergency department for evaluation of dyspnea. #. Acute exacerbation of COPD: Patient with chronic hypoxemic respiratory failure and on 2-3 L supplemental oxygen at baseline. Will admit patient with scheduled and p.r.n. DuoNebs. Continue home inhaler. Initiating systemic steroids. Defer azithromycin. #. History of CVA/mixed hyperlipidemia: On aspirin and statin #. Hypertension: On amlodipine #. Trigeminal neuralgia: On baclofen, gabapentin, Tegretol, Cymbalta. #. Mood disorder: Continue home mood stabilizers #. Obesity class 2: Counseled regarding diet and exercise #. Lower extremity edema: On Lasix #. JUANITO: Noncompliant with NIV at home Med rec pending DVT prophylaxis: Lovenox Full code Quality Stroke Does the patient have a stroke diagnosis?: No VTE Prior VTE?: No VTE Risk Level:: Medical - moderate - high VTE Device Contraindication: Treatment Not Indicated VTE Drug Contraindication: N/A - Med Ordered
[2024-07-02] MEDS: Albuterol/Iprat 2.5/0.5MG 3 ML AMPUL.NEB INHALE ×5 (08:21→23:51)
--- NOTE | 2024-07-02 08:24 | PC.NURSE ---
patient resting quietly in room ED 7. resp even and unlabored currently on 3L NC which is baseline for her at home. patient refused enoxaparin injection stated no I dont want that . patient currently getting breathing treatment with RT. VSS.
[2024-07-02] MEDS: predniSONE 20 MG TABLET 40 MG PO (09:18)
--- NOTE | 2024-07-02 09:32 | PC.NURSE ---
patient ambulated with steady gait to the bathroom, standby assist to help with o2 tank
--- NOTE | 2024-07-02 10:05 | PHA.MEDREC ---
Addendum entered by Crissy Hernandez RPh 07/02/24 10:52: Reviewed by [facility] mistyped in original note should be hydrocodone/APAP and not hydrocortisone/APAP Original Note: Pharmacy Consult ? Medication Reconciliation Pharmacy has completed the medication reconciliation. Spoke with patient to confirm medications. Her administration times have not changed. She reports still taking Trelegy (last fill per claims 04/02/24 x30DS). She takes hydrocortisone/APAP once daily, the time differs depending on how she is feeling. Most recent fill for lorazepam is 0.5 mg however she reports that she has not finished her 1 mg bottle and has been using those at home, kept 1 mg on med list. She still uses hyoscyamine prn and Fioricet prn. She took her medications last night.
--- NOTE | 2024-07-02 10:37 | PM.EVENT ---
Event Note Date of Service: 07/02/24 Event Note: 59-year-old female with pertinent history of chronic hypoxemic respiratory failure due to COPD on 2-3 L supplemental oxygen at baseline, hypertension, mixed hyperlipidemia, history of CVA, trigeminal neuralgia, mood disorder who presents to the emergency department for evaluation of dyspnea. Requesting for home medication Feeling better since admission No acute distress Lungs coarse breath sounds with rhonchi #. Acute on chronic hypoxic respiratory failure due to Acute exacerbation of COPD: Continue scheduled and p.r.n. DuoNebs, iv steroids and Continue home inhalers #. History of CVA/mixed hyperlipidemia: On aspirin and statin #. Hypertension: On Cardizem #. Trigeminal neuralgia: On baclofen, gabapentin, Tegretol, Cymbalta. #. Mood disorder: Continue home mood stabilizers #. Morbid obesity: Counseled regarding diet and exercise #. Lower extremity edema: On Lasix #. JUANITO: Noncompliant with NIV at home DVT prophylaxis: Lovenox Full code Time Spent With Patient Time: Total time managing care of this patient today ____ minutes.
[2024-07-02] MEDS: Baclofen 10 MG TABLET 5 MG PO ×2 (11:35→21:07)
[2024-07-02] MEDS: Gabapentin 400 MG CAPSULE 1200 MG PO ×2 (11:35→21:06)
[2024-07-02] MEDS: Baclofen 10 MG TABLET PO ×2 (11:35→21:07)
[2024-07-02] MEDS: methylPREDNISolone Sod Succ 40 MG/ML VIAL IVPUSH ×2 (11:39→21:05)
[2024-07-02] MEDS: HYDROcodone Bit/Acetam 5/325 TABLET 1 TAB PO (16:08)
[2024-07-02] MEDS: 0.9 % Sodium Chloride Flush 3 ML SYRINGE IVFLUSH ×2 (16:11→21:16)
[2024-07-02] MEDS: OXcarbazepine 300 MG TABLET 600 MG PO (21:06)
[2024-07-02] MEDS: Atorvastatin Calcium 80 MG TABLET PO (21:07)
[2024-07-02] MEDS: Prazosin HCL 1 MG CAPSULE 2 MG PO (21:08)
[2024-07-02] MEDS: VerapamiL HCL 120 MG TABLET PO (21:08)
[2024-07-02] MEDS: DULoxetine HCl 60 MG CAPSULE.DR PO (21:09)
[2024-07-02] MEDS: LORazepam 1 MG TABLET PO (21:10)
[2024-07-02] MEDS: Butalb/Acetamin/Caff 50/325/40 TABLET 1 TAB PO (21:10)
--- NOTE | 2024-07-02 21:52 | MHC.PIE ---
p; pt c/o redness/fungal area to under juanito breasts asking for nystatin powder for the morning - note; pt reports wanting to sleep and not be bother till AM.... i; dr ybarar notified - new [facility]
[2024-07-02] MEDS: Benzonatate 100 MG CAPSULE PO (23:45)
[2024-07-02] MEDS: guaiFEN/Codeine SF 200/20/10ML 10 ML LIQUID 5 ML PO (23:57)
[2024-07-03] VITALS (9 sets, daily range): BP systolic 132–160; BP diastolic 60–80; PULSE 63–86; RESP 12–18; TEMP 36–36.1; O2SAT 93–98
[2024-07-03] MEDS: Albuterol/Iprat 2.5/0.5MG 3 ML AMPUL.NEB INHALE ×5 (01:44→20:55)
--- NOTE | 2024-07-03 02:05 | MHC.PIE ---
p; pt reports rib pain d/t cough asking for cough med with narcotics that were given to pt on last admit. i; dr ybarra notified - new order robitussin with denice e; will cont to [facility]
--- NOTE | 2024-07-03 02:07 | MHC.PIE ---
p; pt calling for breathing treatment. resp notified and treatment given - resp reports pt has nasal congestion/drips i; dr ybarra notified - new order Benadryl now, nasal spray now e; nasal spray no available till AM, benadryl to be given later with 0500 med for pt has demanded not to be disturbed till 0500. will cont to [facility]
[2024-07-03] MEDS: DULoxetine HCl 60 MG CAPSULE.DR PO ×2 (05:09→21:22)
[2024-07-03] MEDS: OXcarbazepine 300 MG TABLET 600 MG PO ×2 (05:09→21:21)
[2024-07-03] MEDS: HYDROcodone Bit/Acetam 5/325 TABLET 1 TAB PO ×2 (05:09→21:24)
[2024-07-03] MEDS: Gabapentin 400 MG CAPSULE 1200 MG PO ×3 (05:09→21:23)
[2024-07-03] MEDS: Furosemide 20 MG TABLET PO (05:09)
[2024-07-03] MEDS: Aspirin Enteric Coated 81 MG TABLET.DR PO (05:10)
[2024-07-03] MEDS: diphenhydrAMINE HCL 25 MG CAPSULE PO (05:10)
[2024-07-03] MEDS: VerapamiL HCL 120 MG TABLET PO ×2 (05:10→21:21)
[2024-07-03] MEDS: Baclofen 10 MG TABLET PO ×3 (05:10→21:23)
[2024-07-03] MEDS: Baclofen 10 MG TABLET 5 MG PO ×3 (05:10→21:23)
[2024-07-03 05:37] LABS: MANUAL DIFF FLAG NO
[2024-07-03 05:44] LABS: Basophils Percent Auto 0.2 % (0-2); Hematocrit 36.5 % (37.0-47.0); Hemoglobin 11.8 g/dl (12.0-16.0); Imm Gran Abs Auto 0.06 X10*3/uL (0.00-0.03); Imm Gran Pct Auto 0.6 % (0.0-0.4); Lymphocytes Absolute Auto 0.9 X10*3/uL (1.2-4.9); Lymphocytes Percent Auto 8.5 % (20-40); Mean Corpuscular HGB Conc 32.3 g/dl (31.0-35.0); Mean Corpuscular Hemoglobin 31.4 pg (27.0-33.0); Mean Corpuscular Volume 97.1 fL (80.0-98.0); Mean Platelet Volume 9.4 fL (9.4-12.3); Monocytes Absolute Auto 0.8 X10*3/uL (0.1-1.2); Monocytes Percent Auto 8.1 % (2-11); Neutrophils Absolute Auto 8.4 x10*3/uL (2.0-8.3); Neutrophils Percent Auto 82.6 % (45-73); Platelet Count 297 X10*3/uL (160-400); Red Blood Count 3.76 X10*6/uL (4.20-5.50); Red Cell Distribution Width 14.1 % (11.0-16.0); White Blood Count 10.2 X10*3/uL (4.8-10.8)
[2024-07-03 05:56] LABS: Anion Gap 10 (12-20); Blood Urea Nitrogen 13 mg/dL (9-16); Carbon Dioxide 24 mmol/L (22-29); Chloride 112 mmol/L (96-108); Creatinine Clr Calc Pharmacy 89.6; Estimated Glomerular Filt Rate > 60; Glucose Random 149 mg/dL (60-115); Potassium 4.3 mmol/L (3.3-5.1); Sodium 142 mmol/L (135-145)
[2024-07-03] MEDS: guaiFEN/Codeine SF 200/20/10ML 10 ML LIQUID 5 ML PO ×2 (08:14→17:22)
[2024-07-03] MEDS: 0.9 % Sodium Chloride Flush 3 ML SYRINGE IVFLUSH ×3 (08:15→21:31)
[2024-07-03] MEDS: Fluticasone/Umeclidinium/Vilanterol 200/62.5/25 BLST.W.DEV 1 PUFF INHALE (09:10)
--- NOTE | 2024-07-03 09:18 | MHC.CM.PN ---
Addendum entered by Debi Kearns RN 07/03/24 09:20: Correction - [employer] is supplier. Addendum entered by Debi Kearns RN 07/03/24 09:20: Home O2 2-3L at baseline. [employer] is supplier. Original Note: Patient lives at home w/ . Independent w/ care. Ambulates w/ rollator. PCP Sirisha Huertas HCP on file and verified. Previously active w/ [facility], but d/c'd from services d/t noncompliance. Does not feel she needs a VNA. Has also declined STR in the past when recommended. DP: Goal is home self care. to transport. CM will continue to follow.
[2024-07-03] MEDS: Nystatin Powder 15 GM BOTTLE 1 APPL TOPICAL ×2 (11:40→21:29)
[2024-07-03] MEDS: methylPREDNISolone Sod Succ 40 MG/ML VIAL IVPUSH (11:40)
--- NOTE | 2024-07-03 12:43 | P.PNIM_ITS ---
Subjective Subjective Date of Service: 07/03/24 Interval History: Complaining of persistent shortness of breath , feels not stable for discharge complaining of dizziness and coughing with ambulation. No fevers, no chills tolerating diet No acute events overnight. Review of Systems All other system reviewed and are negative Physical Exam 2 Vital Signs: Vital Signs: Last Vital Signs Temp 97.0 F 07/03/24 07:38 Pulse 68 07/03/24 12:27 Resp 17 07/03/24 12:27 BP 147/70 H 07/03/24 07:38 Pulse Ox 95 07/03/24 07:38 O2 Del Method Nasal Cannula 07/03/24 07:38 O2 Flow Rate 2 07/03/24 07:38 Oxygen Flow Rate 4 07/02/24 02:48 BMI result Body Mass Index 47.2 Const: Other: General resting comfortably in no acute distress. Right periorbital ecchymosis Neck no JVD. CVS regular rate rhythm, Respiratory lungs clear to auscultation, few expiratory wheeze, diminished at bases, no respiratory distress Gastrointestinal abdomen soft, non tender, bowel sounds audible, no guarding , no rigidity. Extremities no edema Neuro non focal Skin no rash Psych appropriate affect Objective Data Active Medications Acetaminophen (Acetaminophen 325 Mg Tablet) 650 mg PO Q6H PRN PRN Reason: Pain, Mild 1-3,fever,headache Acetaminophen/Butalbital/Caffeine (Butalb/Acetamin/Caff 50/325/40 Tablet) 1 tab PO DAILY MRX1 PRN PRN Reason: Headache Last Admin: 07/02/24 21:10 Dose: 1 tab Documented By: LOUIE Hydrocodone Bitart/Acetaminophen (Hydrocodone Bit/Acetam 5/325 Tablet) 1 tab PO Q12H PRN PRN Reason: Pain, Severe (Pain Scale 7-10) Last Admin: 07/03/24 05:09 Dose: 1 tab Documented By: LOUIE Albuterol/Ipratropium (Albuterol/Iprat 2.5/0.5mg 3 Ml Ampul.Neb) 3 ml INHALE Q4H PRN PRN Reason: Shortness of Breath/Wheezing Last Admin: 07/03/24 01:44 Dose: 3 ml Documented By: JUAN C Albuterol/Ipratropium (Albuterol/Iprat 2.5/0.5mg 3 Ml Ampul.Neb) 3 ml INHALE RQ4H WHILE AWAKE [facility] Last Admin: 07/03/24 12:26 Dose: 3 ml Documented By: PEE Aspirin (Aspirin Enteric Coated 81 Mg Tablet.) 81 mg PO DAILY@050 [facility] Last Admin: 07/03/24 05:10 Dose: 81 mg Documented By: LOUIE Atorvastatin Calcium (Atorvastatin Calcium 80 Mg Tablet) 80 mg PO DAILY@1999 [facility] Last Admin: 07/02/24 21:07 Dose: 80 mg Documented By: LOUIE Baclofen (Baclofen 10 Mg Tablet) 10 mg PO DAILY@050,1199,1999 [facility] Last Admin: 07/03/24 05:10 Dose: 10 mg Documented By: LOUIE Baclofen (Baclofen 10 Mg Tablet) 5 mg PO DAILY@050,1199,1999 [facility] Last Admin: 07/03/24 05:10 Dose: 5 mg Documented By: LOUIE Benzonatate (Benzonatate 100 Mg Capsule) 100 mg PO TID PRN PRN Reason: Cough Last Admin: 07/02/24 23:45 Dose: 100 mg Documented By: LOUIE Calcium Carbonate (Calcium Carbonate 750 Mg Tab.Chew) 750 mg PO Q4H PRN PRN Reason: Heartburn Duloxetine HCl (Duloxetine Hcl 60 Mg Capsule.) 60 mg PO BID@ [facility] Last Admin: 07/03/24 05:09 Dose: 60 mg Documented By: LOUIE Enoxaparin Sodium (Enoxaparin Sodium 40 Mg/0.4 Ml Syringe) 40 mg SUBCUT Q24H [facility] Last Admin: 07/03/24 08:13 Dose: Not Given Documented By: FADUMO Non-Admin Reason: Patient Refused Fluticasone/Umeclidinium/Vilanterol (Fluticasone/Umeclidinium/Vilanterol 200/62.5/25 Blst.W.Dev) 1 puff INHALE DAILY [facility] Last Admin: 07/03/24 09:10 Dose: 1 puff Documented By: PEE Furosemide (Furosemide 20 Mg Tablet) 20 mg PO DAILY@499 [facility]; Protocol Last Admin: 07/03/24 05:09 Dose: 20 mg Documented By: LOUIE Gabapentin (Gabapentin 400 Mg Capsule) 1,200 mg PO TID@0500,1199,1999 [facility] Last Admin: 07/03/24 05:09 Dose: 1,200 mg Documented By: LOUIE Guaifenesin/Codeine Phosphate (Guaifen/Codeine Sf 200/20/10ml 10 Ml Liquid) 5 ml PO Q6H PRN PRN Reason: Cough Last Admin: 07/03/24 08:14 Dose: 5 ml Documented By: FADUMO Lorazepam (Lorazepam 1 Mg Tablet) 1 mg PO DAILY PRN PRN Reason: Anxiety Last Admin: 07/02/24 21:10 Dose: 1 mg Documented By: LOUIE Magnesium Hydroxide (Milk Of Magnesia 30 Ml Oral.Susp) 30 ml PO DAILY PRN PRN Reason: Constipation Melatonin (Melatonin 3 Mg Tablet) 6 mg PO BEDTIME PRN PRN Reason: Insomnia Methylprednisolone Sodium Succinate (Methylprednisolone Sod Succ 40 Mg/Ml Vial) 40 mg IVPUSH Q12H [facility] Last Admin: 07/03/24 11:40 Dose: 40 mg Documented By: FADUMO Nystatin (Nystatin Powder 15 Gm Bottle) 1 appl TOPICAL TID [facility]; Protocol Last Admin: 07/03/24 11:40 Dose: 1 appl Documented By: FADUMO Ondansetron HCl (Ondansetron Hcl 4 Mg/2 Ml Vial) 4 mg IVPUSH Q8H PRN PRN Reason: Nausea and Vomiting Oxcarbazepine (Oxcarbazepine 300 Mg Tablet) 600 mg PO BID@ [facility] Last Admin: 07/03/24 05:09 Dose: 600 mg Documented By: LOUIE Prazosin HCl (Prazosin Hcl 1 Mg Capsule) 2 mg PO DAILY@1999 [facility]; Protocol Last Admin: 07/02/24 21:08 Dose: 2 mg Documented By: LOUIE Sodium Chloride (0.9 % Sodium Chloride Flush 3 Ml Syringe) [facility] Last Admin: 07/03/24 08:15 Dose: 3 ml Documented By: FADUMO Verapamil HCl (Verapamil Hcl 120 Mg Tablet) 120 mg PO BID@ [facility]; Protocol Last Admin: 07/03/24 05:10 Dose: 120 mg Documented By: LOUIE Labs 07/03/24 05:13 07/03/24 05:13 Labs: Laboratory Results - last 24 hr 07/03/24 05:13 MCV 97.1 MCH 31.4 MCHC 32.3 RDW 14.1 Plt Count 297 MPV 9.4 Immature Gran % (Auto) 0.6 H Neut % (Auto) 82.6 H Lymph % (Auto) 8.5 L [place] % (Auto) 8.1 Eos % (Auto) 0.0 Baso % (Auto) 0.2 Lymph # (Auto) 0.9 L [place] # (Auto) 0.8 Eos # (Auto) 0.0 Baso # (Auto) 0.0 Abs Immat Gran (auto) 0.06 H Absolute Neuts (auto) 8.4 H Absolute Nucleated RBC 0.000 Nucleated RBC % (auto) 0.0 Anion Gap 10 L Estim Creat Clear Calc 89.6 Estimated GFR > 60 Random Glucose 149 H Calcium 9.0 Microbiology Microbiology Results: Microbiology 07/02/24 03:22 Blood Culture - Preliminary Blood - Venous No growth after 24 hours. 07/02/24 03:09 Blood Culture - Preliminary Blood - Venous No growth after 24 hours. Assessment and Plan (1) Chronic lung disease: Status: Acute Plan 59-year-old female with pertinent history of chronic hypoxemic respiratory failure due to COPD on 2-3 L supplemental oxygen at baseline, hypertension, mixed hyperlipidemia, history of CVA, trigeminal neuralgia, mood disorder, lower extremity edema who presents to the emergency department for evaluation of dyspnea. Patient states her symptoms started 1 day prior to presentation. Patient is having dyspnea which is worse with exertion. Also has been having dry cough and associated wheezing. No improvement with home inhaler. She uses 1-2 L supplemental oxygen at rest and 3 L supplemental oxygen during exertion. Patient was found satting 70% on room air. No fever, chills, chest pain, palpitations, abdominal pain, leg edema, PND, orthopnea, changes in urinary or bowel habits. #. Acute on chronic hypoxic respiratory failure due to Acute exacerbation of COPD: Continue scheduled and p.rcarolyn Sofia dc iv steroids and transitioned to by mouth Continue home inhalers Encourage out of bed to chair and ambulation Wean back to home oxygen, 2 L at rest and 3 L with ambulation #. History of CVA/mixed hyperlipidemia: On aspirin and statin #. Hypertension: On Cardizem #. Trigeminal neuralgia: On baclofen,trileptal, Neurontin and Cymbalta. #. Mood disorder: Continue home mood stabilizers #. Morbid obesity: Counseled regarding diet and exercise #. Lower extremity edema: On Lasix #. JUANITO: Noncompliant with NIV at home DVT prophylaxis: Lovenox Full code Quality Stroke Does the patient have a stroke diagnosis?: No VTE Prior VTE?: No VTE Risk Level:: Medical - moderate - high VTE Device Contraindication: Treatment Not Indicated VTE Drug Contraindication: N/A - Med Ordered
--- NOTE | 2024-07-03 17:27 | PC.NURSE ---
Pt was able to ambulate in hallway with baseline o2 of 2L nasal cannula, pt maintained o2 saturation 93-96%. MD Glez updated.
[2024-07-03] MEDS: Atorvastatin Calcium 80 MG TABLET PO (21:22)
[2024-07-03] MEDS: Prazosin HCL 1 MG CAPSULE 2 MG PO (21:22)
[2024-07-03] MEDS: Benzonatate 100 MG CAPSULE PO (21:24)
[2024-07-03] MEDS: LORazepam 1 MG TABLET PO (21:25)
[2024-07-04] MEDS: OXcarbazepine 300 MG TABLET 600 MG PO (06:21)
[2024-07-04] MEDS: DULoxetine HCl 60 MG CAPSULE.DR PO (06:21)
[2024-07-04] MEDS: VerapamiL HCL 120 MG TABLET PO (06:21)
[2024-07-04] MEDS: Aspirin Enteric Coated 81 MG TABLET.DR PO (06:21)
[2024-07-04] MEDS: Gabapentin 400 MG CAPSULE 1200 MG PO (06:21)
[2024-07-04] MEDS: Furosemide 20 MG TABLET PO (06:21)
[2024-07-04] MEDS: Baclofen 10 MG TABLET PO (06:22)
[2024-07-04] MEDS: Baclofen 10 MG TABLET 5 MG PO (06:22)
[2024-07-04 07:38] VITALS: BP 169/77; PULSE 79; RESP 18; TEMP 36; O2SAT 94
[2024-07-04 07:44] VITALS: BP 141/75; PULSE 102; RESP 18; TEMP 37.3; O2SAT 96
[2024-07-04 08:17] VITALS: PULSE 81; RESP 15; O2SAT 96
[2024-07-04] MEDS: Fluticasone/Umeclidinium/Vilanterol 200/62.5/25 BLST.W.DEV 1 PUFF INHALE (08:17)
[2024-07-04] MEDS: Albuterol/Iprat 2.5/0.5MG 3 ML AMPUL.NEB INHALE (08:17)
[2024-07-04] MEDS: predniSONE 20 MG TABLET PO (08:45)
[2024-07-04] MEDS: 0.9 % Sodium Chloride Flush 3 ML SYRINGE IVFLUSH (08:46)
[2024-07-04] MEDS: Nystatin Powder 15 GM BOTTLE 1 APPL TOPICAL (08:46)
--- NOTE | 2024-07-04 10:56 | PM.DS ---
DS: Providers Provider Date of Service: 07/04/24 Date of admission: 07/02/24 09:08 Date of discharge: 07/04/24 Primary care physician: ESTEBAN Christianson DS: Diagnosis Discharge Diagnosis (1) Chronic lung disease: Status: Acute DS: Summary Hospital Course Hospital Course: History of presenting illness: Date of Service: 07/02/24 Chief Complaint: Dyspnea This is a 59-year-old female with pertinent history of chronic hypoxemic respiratory failure due to COPD on 2-3 L supplemental oxygen at baseline, hypertension, mixed hyperlipidemia, history of CVA, trigeminal neuralgia, mood disorder, lower extremity edema who presents to the emergency department for evaluation of dyspnea. Patient states her symptoms started 1 day prior to presentation. Patient is having dyspnea which is worse with exertion. Also has been having dry cough and associated wheezing. No improvement with home inhaler. She uses 1-2 L supplemental oxygen at rest and 3 L supplemental oxygen during exertion. Patient was found satting 70% on room air. No fever, chills, chest pain, palpitations, abdominal pain, leg edema, PND, orthopnea, changes in urinary or bowel habits. In the emergency department, patient back on her 3 L baseline supplemental oxygen but wheezing, tachypneic despite multiple DuoNeb treatments. Hospital course: 59-year-old female with pertinent history of chronic hypoxemic respiratory failure due to COPD on 2-3 L supplemental oxygen at baseline, hypertension, mixed hyperlipidemia, history of CVA, trigeminal neuralgia, mood disorder, lower extremity edema who presents to the emergency department for evaluation of dyspnea of 1 day duration worse with exertion associated with dry cough and wheeze with no improvement in home inhalers., patient noted to have finger oximetry of 70% on room air therefore admitted to [facility] for following medical issues. #. Acute on chronic hypoxic respiratory failure due to Acute exacerbation of COPD treated with scheduled and as needed DuoNebs, and IV steroids patient responded well to above treatment oxygenation at rest and ambulation is stable on home oxygen therefore she is being discharged home on prednisone 20 mg daily for 3 days followed by prednisone 10 mg daily ,as per patient she has prednisone 20mg from before and she does not need a new prescription, recommend to continue home inhalers, cough medication as needed, and continue oxygen 3 L with activity, 2 L at rest in 1 L at night. #. History of CVA/mixed hyperlipidemia: On aspirin and statin. #. Hypertension: Stable blood pressure continue Cardizem #. Trigeminal neuralgia: No acute exacerbation continue baclofen,trileptal, Neurontin and Cymbalta. #. Mood disorder: Continue home mood stabilizers #. Morbid obesity: Counseled regarding diet and exercise #. Lower extremity edema: Stable continue Lasix #. JUANITO: Noncompliant with NIV at home Time Attestation Discharge Coordination Time (in mins): 36 Quality: Safe Use of Opioids Does Pt have an Active Cancer Diagnosis on the Problem List?: No Quality: Stroke Does the patient have a stroke diagnosis?: No Physical Exam Vital Signs: Vital Signs: Last Vital Signs Temp 99.2 F 07/04/24 07:44 Pulse 81 07/04/24 08:17 Resp 15 07/04/24 08:17 BP 141/75 H 07/04/24 07:44 Pulse Ox 96 07/04/24 07:44 O2 Del Method Room Air 07/04/24 07:44 O2 Flow Rate 2 07/04/24 07:38 Oxygen Flow Rate 4 07/02/24 02:48 BMI result Body Mass Index 47.2 Const: Other: General resting comfortably in no acute distress. Neck no JVD. CVS regular rate rhythm, Respiratory lungs clear to auscultation, diminished at bases, no respiratory distress Gastrointestinal abdomen soft, non tender, bowel sounds audible, no guarding , no rigidity. Extremities no edema Neuro non focal Skin no rash Psych appropriate affect DS: Data Data Completed and Pending Completed studies during hospitalization [Text1]: Procedures Assistance with Respiratory Ventilation, Less than 24 Consecutive Hours, Continuous Positive Airway Pressure (05/01/24) Labs on day of discharge: Preliminary micro results at discharge 07/02/24 03:22 Blood Culture - Preliminary Blood - Venous No growth after 48 hours. 07/02/24 03:09 Blood Culture - Preliminary Blood - Venous No growth after 48 hours. Discharge Plan Discharge Anticipated Discharge Date/Time: 07/04/24 10:53 Patient Disposition: Home, Self-Care Discharge Diagnosis: Acute on chronic hypoxic respiratory failure due to COPD exacerbation Referrals: Sirisha Huertas FNP-BC [Primary Care Provider] - 1 Week Discharge Medications: Continued ipratropium-albuterol 0.5 mg-3 mg(2.5 mg base)/3 mL solution for nebulization 3 ml inhalation Q4H PRN (Reason: for dyspnea) Qty: 180 11RF Trelegy Ellipta 200-62.5-25 mcg Blister With Device 1 inh INHALATION DAILY hydrocodone-acetaminophen 5-325 mg tablet 1 tab PO DAILY baclofen 10 mg tablet 10 mg PO DAILY@0500,1200,2000 baclofen 5 mg tablet 5 mg PO DAILY@0500,1200,2000 verapamil 120 mg tablet 120 mg PO BID@0500,2000 atorvastatin 80 mg tablet 80 mg PO DAILY@2000 xezvofjipe-bshmmiwlfdkct-fohm 50-325-40 mg tablet 1 tab PO DAILY MRX1 PRN (Reason: Headache) hyoscyamine sulfate 0.125 mg tablet 0.25 mg PO Q6H PRN (Reason: Abdominal Discomfort) gabapentin 300 mg capsule 1,200 mg PO TID@0500,1200,2000 oxcarbazepine 600 mg tablet 600 mg PO BID@0500,2000 lorazepam 1 mg tablet 1 mg PO DAILY PRN (Reason: Anxiety) duloxetine 60 mg capsule,delayed release(DR/EC) 60 mg PO BID@0500,2000 (DME) nebulizer and compressor Device See Rx Instructions .Route Qty: 1 0RF Rx Instructions: As directed albuterol sulfate 90 mcg/actuation HFA aerosol inhaler 2 puff inhalation Q4H PRN (Reason: Shortness Of Breath Or Wheezing) furosemide 20 mg tablet 20 mg PO DAILY@0500 aspirin 81 mg tablet,delayed release (DR/EC) 81 mg PO DAILY@0500 calcium carbonate-vitamin D3 600 mg-5 mcg (200 unit) tablet 1 tab PO DAILY@0500 prazosin 2 mg capsule 2 mg PO DAILY@2000 (DME) Oxygen Home Use Kit See Rx Instructions .Route Rx Instructions: As directed Discharge Orders: Discharge Order (Routine); Ordered 07/04/24 Ordered By: Ted Glez Diet: Advance to usual diet Activity on Discharge: As tolerated Stand Alone Forms: Patient Portal Discharge page Print Language: [place] Care Plan Goals: Acute COPD exacerbation resolved Continue home oxygen as before 1 L at night, 2 L at rest 3 L with activity Continue home inhalers Take prednisone 20 mg daily for 3 days,than (prednisone 20mg 1/2 tab) 10 mg daily for next 3 days (patient has prednisone 20 mg tablets at home) Health Concerns: Continue all home medications as before Plan of Treatment: Outpatient follow-up with primary care physician call for appointment Assessment: As above Patient Instructions: Neutropenic Precautions (GEN)
--- NOTE | 2024-07-04 11:19 | MHC.CM.PN ---
DP: PT HAS BEEN MEDICALLY CLEARED FOR DC HOME, NO SERVICES. [facility] WILL TRANSPORT.
== END 2024-07-04 11:46 | disposition home or self-care (01) | DRG 140 ==
LOC: HO.ED 06:00 → HO.EDOVER 06:08 → HO.S3 11:33
PROVIDERS: Admitting Provider Student in an Organized Health Care Education/Training Program; Emergency Provider Emergency Medicine; PCP Registered Nurse; Visit Provider Hospitalist
DX: J44.1 Chronic obstructive pulmonary disease with (acute) exacerbation (principal); J96.21 Acute and chronic respiratory failure with hypoxia; Z99.81 Dependence on supplemental oxygen; E66.01 Morbid (severe) obesity due to excess calories; E78.2 Mixed hyperlipidemia; G50.0 Trigeminal neuralgia; G47.33 Obstructive sleep apnea (adult) (pediatric); Z20.822 Contact with and (suspected) exposure to COVID-19; Z68.42 Body mass index [BMI] 45.0-49.9, adult; Z91.199 Patient's noncompliance with other medical treatment and regimen due to unspecified reason; Z86.73 Personal history of transient ischemic attack (TIA), and cerebral infarction without residual deficits; Z71.3 Dietary counseling and surveillance; Z79.82 Long term (current) use of aspirin; Z79.899 Other long term (current) drug therapy
CPT/HCPCS: 0241U; 36415; 71045; 80048; 80076; 82803; 83605; 83880; 84484; 85025; 85610; 87040; 93005; 94640; 99285; J0456; J0696; J2919; J3475

== ENCOUNTER → 2024-07-02 02:50 | Outpatient (BNV) | payer BC, SELFPAY | PROVIDERS: Admitting Provider Student in an Organized Health Care Education/Training Program; Emergency Provider Emergency Medicine; PCP Registered Nurse; Visit Provider Internal Medicine Cardiovascular Disease | DX: R06.02 Shortness of breath (principal) | CPT/HCPCS: 93010 ==

== ENCOUNTER → 2024-07-02 02:51 | Outpatient (BNV) | payer BC, SELFPAY | PROVIDERS: Emergency Provider Emergency Medicine; PCP Registered Nurse; Visit Provider Radiology Diagnostic Radiology | DX: R06.02 Shortness of breath (principal) | CPT/HCPCS: 71045 ==

== ENCOUNTER → 2024-07-02 06:01 | Outpatient (BNV) | payer BC, SELFPAY | PROVIDERS: Admitting Provider Student in an Organized Health Care Education/Training Program; Emergency Provider Emergency Medicine; PCP Registered Nurse; Visit Provider Student in an Organized Health Care Education/Training Program | DX: J98.4 Other disorders of lung (principal) | CPT/HCPCS: 99233; 99239 ==

== ENCOUNTER 2024-07-04 11:27 | Outpatient (REF) | payer BC, SELFPAY ==
[2024-07-04 11:51] LABS: MANUAL DIFF FLAG NO
[2024-07-04 12:34] LABS: Basophils Percent Auto 0.4 % (0-2); Eosinophils Absolute Auto 0.1 X10*3/uL (0.0-0.4); Eosinophils Percent Auto 1.1 % (0-4); Hematocrit 38.7 % (37.0-47.0); Hemoglobin 12.6 g/dl (12.0-16.0); Imm Gran Abs Auto 0.03 X10*3/uL (0.00-0.03); Imm Gran Pct Auto 0.3 % (0.0-0.4); Lymphocytes Absolute Auto 1.1 X10*3/uL (1.2-4.9); Lymphocytes Percent Auto 11.4 % (20-40); Mean Corpuscular HGB Conc 32.6 g/dl (31.0-35.0); Mean Corpuscular Hemoglobin 31.7 pg (27.0-33.0); Mean Corpuscular Volume 97.5 fL (80.0-98.0); Mean Platelet Volume 9.7 fL (9.4-12.3); Monocytes Absolute Auto 0.8 X10*3/uL (0.1-1.2); Monocytes Percent Auto 7.8 % (2-11); Neutrophils Absolute Auto 7.9 x10*3/uL (2.0-8.3); Platelet Count 342 X10*3/uL (160-400); Red Blood Count 3.97 X10*6/uL (4.20-5.50); Red Cell Distribution Width 14.6 % (11.0-16.0); White Blood Count 9.9 X10*3/uL (4.8-10.8)
[2024-07-04 13:00] LABS: Anion Gap 15 (12-20); Blood Urea Nitrogen 13 mg/dL (9-16); Calcium 9.1 mg/dL (8.4-10.2); Carbon Dioxide 25 mmol/L (22-29); Chloride 106 mmol/L (96-108); Estimated Glomerular Filt Rate > 60; Glucose Random 129 mg/dL (60-115); Potassium 3.7 mmol/L (3.3-5.1); Sodium 142 mmol/L (135-145)
[2024-07-04 13:01] LABS: B Type Natriuretic Peptide 201 pg/mL (<100)
== END 2024-07-04 11:28 | disposition home or self-care (01) ==
LOC: HO.LAB 11:27
PROVIDERS: Hospitalist; PCP Registered Nurse; Visit Provider Internal Medicine Cardiovascular Disease
DX: J96.12 Chronic respiratory failure with hypercapnia (principal); J45.51 Severe persistent asthma with (acute) exacerbation; T78.40XA Allergy, unspecified, initial encounter; D80.1 Nonfamilial hypogammaglobulinemia
CPT/HCPCS: 36415; 80048; 83880; 85025

== ENCOUNTER 2024-07-24 10:51 | Outpatient (AMB) | payer BC, SELFPAY ==
--- NOTE | 2024-07-24 10:52 | MHC.OFFVIS ---
Vital Signs 07/24/24 10:53 Height 5 ft 1 in Weight 192 lb 14.472 oz BMI 36.4 BP 142/88 H Blood Pressure Location Rt brachial Position Sitting Pulse 71 Pulse Source Pulse Oximeter Pulse Oximetry (%) 99 Oxygen Delivery Method Nasal Cannula Intake Visit Reasons: COPD/Asthma Allergies Iodinated Contrast Media [IV CONTRAST] Allergy (Intermediate, Verified 07/24/24 11:00) HIVES latex [LATEX] Allergy (Unknown, Verified 07/24/24 11:00) RASH adhesive tape Allergy (Verified 07/24/24 11:00) Rash morphine [MORPHINE] Adverse Reaction (Unknown, Verified 07/24/24 11:00) VOMITING HPI Comments Details: The patient is a 59 year woman with a known history of tobacco dependency and COPD. Apparently back in February she developed worsening respiratory symptoms and was admitted to the hospital with COPD exacerbation. While she was there the patient did have a CT scan of the chest which was personally reviewed by me. It appears patient does have underlying pulmonary nodules subcentimeter in size, as well as, emphysema evidence of bronchitis. The patient does use oxygen activity. She also benefits from using oxygen while sleeping. The patient also needs to quit smoking. She understands the has is having oxygen and smoking. 07/19/2023 the patient is here for a pulmonary follow-up visit. Overall she is doing about the same. She has not using the oxygen regularly. She did have an overnight oximetry done several months ago on 2 L nasal cannula demonstrating that she actually does require the 2 L and actually would benefit from a little more oxygen. However, she has not using it at also I did advise her just to go back on using the oxygen. She has significant trigeminal neuralgia and neuropathy in general making it difficult for her to have anything over head and ear area. Therefore, she is going to have to figure out a way that would work for her. She does not tolerate a oxygen mask either because of the same problem. She is going to look to see if she can find a solution otherwise will can call [facility] to see if they can help her. The patient unfortunately she continues to smoke cigarettes. She does want to quit she wants to try the Nicotrol nasal spray. Will send to the pharmacy for her to try. The patient also did have pulmonary function studies that [facility] last year. She does have significant COPD. We do not have those PFTs available at this time but we will request them. She will be a great candidate for pulmonary rehabilitation at this time. The patient also had a CT scan of the chest back in February 2023 demonstrating multiple nodules largest 1 measuring 5 mm in size. She is high risk for malignancy due to her smoking history therefore she will have a repeat CT scan the fall 2023. 01/20/2024 the patient is here for a pulmonary follow-up visit. The patient has been hospitalized now about 3 times since we last spoke. I did evaluate her in the hospital as well. Has had significant wheezing. Has been requiring prednisone. Indeed she may have an allergic component to her bronchospasms. She does have significant eosinophilia. therefore, will go ahead and request additional testing including allergy testing so we can address her persistent bronchospasms. Currently she is on 40 mg of prednisone. She only taper. We did go over her inhalers. She needs to also continue to use her nebulizer therapy 2 to 4 times a day. Trelegy inhaler will be effective for her. She will go ahead and start that inhaler and we did instruct her how to use it. The patient is also using her oxygen. We did do a brief walking oximetry to make sure that she was getting adequate oxygenation. She need to continue using 2 L with activity. She does not using her nose because it does aggravate her nose so therefore she does only get some administration. The patient also has underlying daytime drowsiness. It was documented the patient is snoring. She also has headaches in the morning. The patient does have an elevated Morganza score of 10/24. He is using oxygen with sleep. Will go ahead and request an in-lab sleep study at this time. 03/15/2024 the patient is here for a pulmonary follow-up visit. The patient is here for hospital follow-up visit. She has had multiple hospitalizations since the last visit. She has been having worsening respiratory symptoms. She is on currently on prednisone. She is tapering down. We did talk about her blood work demonstrating a low IgG level. I explained to her hypogammaglobulinemia can result in smoldering infections and could potentially worsen her respiratory issues and it could be driving her exacerbations. We talked about augmentation therapy. Will go ahead and repeat her levels once she is off the prednisone to see if she still low. If she is still low will talk about augmentation therapy further. In addition to that she did have a sleep study. It was an in-lab study. She did not have any evidence of sleep apnea. The patient actually just needs to be on oxygen. She can use 1 L at nighttime. We can always check an overnight oximetry on 1 L to make sure sufficient. In addition to that she is using the portable oxygen concentrator with did ask conserving device tank. The patient was walk today she needs 2 L pulse at rest and 3 L pulse with activity. When she is at home with the continue his oxygen she can stay on 2 liters/minute. Although when she is doing any kind strained his activity such as going up a flight of stairs or going showering she should be on 3 liters/minute. The patient feels comfortable with that. She continues use her respiratory therapy as prescribed. The patient did have a CT scan of the chest back in 03/03/2023 demonstrating multiple pulmonary nodules and chronic bronchitis. Largest nodule measuring 5 mm in size. She will need another CT scan now. The patient follow-up in 3-4 weeks and will review the CT scan at that time. 04/06/2024 the patient is here for a hospital follow-up visit. She was on hospital again. The patient required another course of steroids. She then subsequently to rehabilitation. She has been using her oxygen. We again reviewed her blood work demonstrating the significant immunodeficiency. Indeed her recurrent infections may be related to immunocompromised state in the treatment of augmentation therapy may be very reasonable for her to improve her quality of life decrease hospitalizations and improve her respiratory status. But for now she is on prednisone. Therefore will wait for to finish a prednisone recheck her levels to see if the levels continued to be low. If they are low then will go ahead and start her on IVIG therapy. If the levels are coming up then which is hold steady and see if they continue to rise when she is off the prednisone. She continues with respiratory therapy good effect. We did review her chest x-ray demonstrating no acute disease. We did review her allergy levels. There indeed elevated with an elevated IgE although her eosinophils are stable therefore not a candidate for Dupixent. However, will recheck her levels when she is off the prednisone to see if her eosinophils go about 300. 05/25/2024 the patient has a telehealth visit today. She was again in the hospital with nausea vomiting and she had dehydration. She is now better. She did require additional prednisone. Prior to the prednisone she did get the blood work demonstrating again on low IgG level. She is keeps getting admissions to the hospital because of bronchitis COPD exacerbations likely from ongoing infections. Therefore starting her on IVIG will be important. Her levels continue to be significantly low even off the prednisone. Her eosinophil levels are okay so therefore she is not a candidate for Dupixent. She continues use her oxygen good effect. She also continues with her respiratory therapy. 07/24/2024 the patient is here for a pulmonary follow-up visit. Overall the patient has been doing better. She was hospitalized briefly with another COPD exacerbation. Her chest x-ray was personally by me just demonstrating some evidence of bronchitis. No airspace disease noted. She was discharged and she has continued to use the oxygen. She is able to get a POC now and she is using at 2 L pulse. We did titrate her oxygen and she actually can just be on 2 L pulse with activity and if she is sitting down she can be on room air. Will go ahead request a repeat overnight oximetry on room air to see if she needs oxygen at nighttime. In the meantime she is going to continue with respiratory therapy. She also has been doing the IVIG which she will do every month. Does before the 4th dose she will get blood work done to check her IgG throw it make sure that her levels are reasonable. If not we can adjust them at that point. The patient also follow-up after that. We did talk about pulmonary rehabilitation. She had done it before. She will maybe benefit from it again specially as her respiratory condition seems to be getting better. She quit smoking back in April and this is a great accomplishment. I do believe that this will also help her recovery. [facility] Medical History Hypertension Chronic hypercapnic respiratory failure Aortic stenosis Obesity (BMI 30-39.9) Asthma Acute exacerbation of chronic obstructive pulmonary disease Chronic lung disease Hypogammaglobulinemia Smoker JUANITO (obstructive sleep apnea) Allergies Elevated troponin COPD (chronic obstructive pulmonary disease) Trigeminal neuralgia Pulmonary nodules Mixed hyperlipidemia Peripheral neuropathy Tobacco use disorder Mood disorder Surgical History History of esophagogastroduodenoscopy (EGD) History of colonoscopy History of lumbar discectomy History of tubal ligation History of excision of mass History of shoulder surgery Social History Household Members: Spouse Housing: Condominium Do you presently have visiting nurse or other home services: No Alcohol intake: current Alcohol intake frequency: holidays/special occasions only Alcohol type: hard liquor Comment: refusing bed alarm Patient Tobacco Use Status: Former Tobacco user Tobacco use type: Cigarette Cigarette Packs Per Day: 4 Cigarettes Per Day: 80.0 Years Smoked: 40 e-Cigarette/Vaping Use: Former Use Second Hand Smoke Exposure: No Substance Use Type: Marijuana Advance Directives Date on File: 03/09/23 service: No Review of Systems Const Reports daytime sleepiness, Denies fever(s), Reports headache(s) and Reports snoring Eyes Denies change in vision ENT Reports headache(s) and Reports nasal congestion Card Denies chest pain and Reports dyspnea on exertion Resp Reports chest congestion, Reports cough, Reports dyspnea on exertion, Reports snoring and Reports wheezing GI Reports no additional complaints Musc Reports no additional complaints Skin/Breast Denies rash Neuro Reports headache(s) Luis/Lymph Denies lymphadenopathy Aller/Immun Reports no additional complaints and Reports wheezing Physical Exam Vital Signs: Last Vital Signs Pulse 71 07/24/24 10:53 BP 142/88 H 07/24/24 10:53 Pulse Ox 99 07/24/24 10:53 Oxygen Delivery Method Nasal Cannula 07/24/24 10:53 BMI result Body Mass Index 36.4 Last Vital Signs Temp 97.6 F 12/12/23 08:00 Pulse 110 H 12/12/23 09:52 Resp 22 H 12/12/23 09:52 BP 170/89 H 12/12/23 08:00 Pulse Ox 92 12/12/23 08:00 O2 Del Method Nasal Cannula 12/12/23 08:00 O2 Flow Rate 2 12/12/23 08:00 FiO2 28 12/11/23 04:00 BMI result Body Mass Index 30.6 Const General: cooperative and alert Orientation/consciousness: patient oriented x3 Resp Effort & Inspection: normal respiratory effort and able to speak in complete sentences Auscultation: no wheezes and diminished lung sounds Neuro General: patient oriented x3 Results Reviewed Results Reviewed: personally reviewed CXR 06/2024 with evidence of bronchitis Assessment & Plan Assessment & Plan (1) JUANITO (obstructive sleep apnea): Code(s): G47.33 - Obstructive sleep apnea (adult) (pediatric) Category: Medical (2) COPD (chronic obstructive pulmonary disease): Code(s): J44.9 - Chronic obstructive pulmonary disease, unspecified Category: Medical Qualifiers: COPD type: chronic bronchitis Chronic bronchitis type: simple Qualified Code(s): J41.0 - Simple chronic bronchitis (3) Pulmonary nodules: Code(s): R91.8 - Other nonspecific abnormal finding of lung field Category: Medical (4) Allergies: Code(s): T78.40XA - Allergy, unspecified, initial encounter Category: Medical Qualifiers: Encounter type: initial encounter Qualified Code(s): T78.40XA - Allergy, unspecified, initial encounter (5) Hypogammaglobulinemia: Code(s): D80.1 - Nonfamilial hypogammaglobulinemia Category: Medical (6) Chronic lung disease: Code(s): J98.4 - Other disorders of lung Category: Medical Plan Trelegy continue IVIG augmentation therapy continue oxygen supplementation with activity overnight oximetry on RA smoking cessation-quit Novemever 2023 LDCT program continue oxygen 1L/min while sleeping, 2l/pulse with activity (Has POC) Bloodwork F/U 2-3 months Orders: Orders Basic Metabolic Panel Today D80.1 - Nonfamilial hypogammaglobulinemia, J98.4 - Other disorders of lung Overnight Pulse Oximetry Today J98.4 - Other disorders of lung Complete Blood Count Auto Diff Today D80.1 - Nonfamilial hypogammaglobulinemia, J98.4 - Other disorders of lung Immunoglobulin G Subclasses Today D80.1 - Nonfamilial hypogammaglobulinemia, J98.4 - Other disorders of lung Erythrocyte Sedimentation Rate Today D80.1 - Nonfamilial hypogammaglobulinemia, J98.4 - Other disorders of lung Coding Level of Care Code Est Pt Level 5 (75789) Complex EM visit Add On G2211 Diagnoses JUANITO (obstructive sleep apnea) G47.33 Simple chronic bronchitis J41.0 COPD type: chronic bronchitis Chronic bronchitis type: simple Pulmonary nodules R91.8 Allergy, initial encounter T78.40XA Encounter type: initial encounter Hypogammaglobulinemia D80.1 Chronic lung disease J98.4 Time Spent (min) 60
[2024-07-24 10:53] VITALS: BP 142/88; PULSE 71; O2SAT 99; BMI 36.4
== END 2024-07-24 11:35 | disposition home or self-care (01) ==
PROVIDERS: PCP Registered Nurse; Visit Provider Hospitalist
DX: J41.0 Simple chronic bronchitis (principal); G47.33 Obstructive sleep apnea (adult) (pediatric); R91.8 Other nonspecific abnormal finding of lung field; D80.1 Nonfamilial hypogammaglobulinemia; J98.4 Other disorders of lung
CPT/HCPCS: 99215

== ENCOUNTER → 2024-07-24 10:51 | Outpatient (BNVA) | payer BC, SELFPAY | PROVIDERS: PCP Registered Nurse; Visit Provider Hospitalist ==

== ENCOUNTER 2024-08-03 01:11 | Inpatient (IN) | payer BC, SELFPAY ==
[2024-08-03] VITALS (14 sets, daily range): BP systolic 143–196; BP diastolic 62–97; PULSE 71–118; RESP 12–22; TEMP 36.4–37.1; O2SAT 70–100; BMI 37.0
--- NOTE | ~2024-08-03 | XR_ITS ---
CLINICAL HISTORY: Shortness of breath R O pneumonia 1 view chest x-ray Comparison: Chest x-ray from 07/02/2024 Findings: Mild pulmonary opacities including right upper lobe are nonspecific and may reflect pneumonitis and/pneumonia. Low lung volumes with mild bibasilar atelectasis. No pneumothorax or pleural effusion. Imaged mediastinum and imaged osseous structures appear unchanged. IMPRESSION: Mild pulmonary opacities are nonspecific and may reflect pneumonitis including imaged right upper lobe. Recommend attention on follow-up to ensure resolution. This document has been electronically signed by: Doroteo Green MD on 08/03/2024 02:07:38
--- NOTE | 2024-08-03 01:20 | ED.SOB ---
HPI - SOB/Dyspnea General Chief Complaint: Dyspnea Stated Complaint: SOB Time Seen by Provider: 08/03/24 01:13 Source: patient Mode of arrival: EMS History of Present Illness ED Provider: Dr. Bakari Escalona HPI Narrative: 59-year-old female with pertinent history of chronic hypoxemic respiratory failure due to COPD on 2-3 L supplemental oxygen at baseline, hypertension, mixed hyperlipidemia, history of CVA, trigeminal neuralgia, mood disorder, lower extremity edema who presents to the emergency department for evaluation of increased shortness of breath of the last 1-2 days with severe shortness of breath prior to coming to the emergency department. Patient states she was using her nebulizers throughout the day yesterday with only minimal relief of her shortness of breath. Prior to coming to the emergency department her shortness of breath increased and she did not get any relief with the nebulizer she called 911. Paramedics report that the patient was tachypneic with a respiratory rate of 36, her O2 saturation was 70% on 3 L of home oxygen. Business Development Representative placed her on 100% FiO2 and CPAP with improvement of her symptoms. They also gave her Solu-Medrol 125 mg IV, DuoNeb and albuterol nebulizer in route. Business Development Representative vital signs reported as blood pressure 196/86, heart rate 111, point of care glucose 143. Patient was recently admitted and discharged on 07/02/2024 with a diagnosis of acute on chronic hypoxic respiratory failure due to acute exacerbation of COPD. Related Data Home Medications ?Medication ?Instructions ?Recorded ?Confirmed atorvastatin 80 mg tablet 80 mg PO DAILY@199903/04/23 07/02/24 [id number] 1 tab PO DAILY MRX1 PRN Headache 03/04/23 07/02/24 50 mg-325 mg-40 mg tablet duloxetine 60 mg capsule,delayed 60 mg PO BID@0500,199903/04/23 07/02/24 release gabapentin 300 mg capsule 1,200 mg PO TID@0500,1199,199903/04/23 07/02/24 hyoscyamine sulfate 0.125 mg tablet 0.25 mg PO Q6H PRN Abdominal 03/04/23 07/02/24 Discomfort lorazepam 1 mg tablet 1 mg PO DAILY PRN Anxiety 03/04/23 07/02/24 oxcarbazepine 600 mg tablet 600 mg PO BID@0500,199903/04/23 07/02/24 Oxygen Home Use 04/16/23 03/10/24 prazosin 2 mg capsule 2 mg PO DAILY@199904/16/23 07/02/24 albuterol sulfate 90 mcg/actuation 2 puff inhalation Q4H PRN 01/31/24 07/02/24 aerosol inhaler Shortness Of Breath Or Wheezing fluticasone fur. 200 mcg-umeclid 1 inh inhalation DAILY 02/14/24 07/02/24 62.5 mcg-vilant 25 mcg inhalat.powder (Trelegy Ellipta) furosemide 20 mg tablet 20 mg PO DAILY@49905/01/24 07/02/24 aspirin 81 mg tablet,delayed 81 mg PO DAILY@49905/22/24 07/02/24 release calcium 600 mg (as 1 tab PO DAILY@05006/20/24 07/02/24 carbonate)-vitamin D3 5 mcg (200 unit) tablet baclofen 10 mg tablet 10 mg PO DAILY@0500,1200,199907/02/24 07/02/24 baclofen 5 mg tablet 5 mg PO DAILY@050,1200,199907/02/24 07/02/24 hydrocodone 5 mg-acetaminophen 325 1 tab PO DAILY 07/02/24 07/02/24 mg tablet verapamil 120 mg tablet 120 mg PO BID@050,199907/02/24 07/02/24 Previous Rx's ?Medication ?Instructions ?Recorded nebulizer and compressor #1 ea 12/16/23 ipratropium 0.5 mg-albuterol 3 mg 3 ml inhalation Q4H PRN for 03/02/24 (2.5 mg base)/3 mL nebulization dyspnea #180 mL soln Allergies Allergy/AdvReac Type Severity Reaction Status Date / Time Iodinated Contrast Media Allergy Intermediate HIVES Verified 08/03/24 01:25 [IV CONTRAST] latex [LATEX] Allergy Unknown RASH Verified 08/03/24 01:25 adhesive tape Allergy Rash Verified 08/03/24 01:25 morphine [MORPHINE] AdvReac Unknown VOMITING Verified 08/03/24 01:25 Review of Systems Review of Systems: Yes all other systems are reviewed and are negative PMFSH Past Medical History Medical History Hypertension Chronic hypercapnic respiratory failure Aortic stenosis Obesity (BMI 30-39.9) Asthma Acute exacerbation of chronic obstructive pulmonary disease Chronic lung disease Hypogammaglobulinemia Smoker JUANITO (obstructive sleep apnea) Allergies Elevated troponin COPD (chronic obstructive pulmonary disease) Trigeminal neuralgia Pulmonary nodules Mixed hyperlipidemia Peripheral neuropathy Tobacco use disorder Mood disorder Surgical History History of esophagogastroduodenoscopy (EGD) History of colonoscopy History of lumbar discectomy History of tubal ligation History of excision of mass History of shoulder surgery Social History Social History Household Members: Spouse Housing: Condominium Do you presently have visiting nurse or other home services: No Alcohol intake: never Comment: refusing bed alarm Patient Tobacco Use Status: Former Tobacco user Tobacco use type: Cigarette Cigarette Packs Per Day: 4 Cigarettes Per Day: 80.0 Years Smoked: 40 Smoked in Last 30 Days: No e-Cigarette/Vaping Use: Former Use Second Hand Smoke Exposure: No Use of substances other than those prescribed or required for medical reasons: No Substance Use Type: Marijuana Advance Directives: No Advance Directives Information Provided: Yes Advance Directives Date on File: 03/09/23 Patient : No service: No Physical Exam Vital Signs: Vital Signs: Last Vital Signs Temp 97.5 F 08/03/24 01:18 Pulse 91 08/03/24 02:59 Resp 20 08/03/24 02:59 BP 144/74 H 08/03/24 02:59 Pulse Ox 98 08/03/24 02:59 O2 Del Method BiPAP 08/03/24 02:59 FiO2 50 08/03/24 01:18 BMI result Body Mass Index 37.0 Exam: General: Awake, alert, on CPAP, does not appear to be in distress Head: Normocephalic, atraumatic, patient was having left-sided ear/facial pain secondary to her trigeminal neuralgia it was very sensitive to touch in this area EENT: PERRL, Lids normal, sclera normal, conjunctiva normal, nose normal , ears normal, throat without erythema or exudates Neck: Supple, no adenopathy Lung: Diffuse wheezing and rhonchi, no rales, breath sounds symmetric bilaterally Chest: symmetric movement, nontender Heart: regular rate and rhythm, normal S1, S2 no murmurs or rubs Abdomen: soft, non-tender, nondistended, normal bowel sounds Back: no vertebral tenderness, no CVAT Extremities: no deformities, moves all extremities symmetrically Neuro: Awake, alert, oriented, normal speech, moves all extremities symmetrically Psych: Pleasant, cooperative Medications Administered Discontinued Medications Generic Name Dose Route Start Last Admin Trade Name Freq PRN Reason Stop Dose Admin Sodium Chloride 1,000 mls @ 999 mls/hr 08/03/24 01:20 08/03/24 01:52 Ns IV 08/03/24 02:20 999 mls/hr .Q1H1M STA Administration Lorazepam 1 mg 08/03/24 02:16 08/03/24 02:27 Lorazepam 2 Mg/Ml Vial IVPUSH 08/03/24 02:17 1 mg STAT STA Administration Medical Decision Making Medical Decision Making [facility] Narrative: 59-year-old female with pertinent history of chronic hypoxemic respiratory failure due to COPD on 2-3 L supplemental oxygen at baseline, hypertension, mixed hyperlipidemia, history of CVA, trigeminal neuralgia, mood disorder, lower extremity edema who presents to the emergency department for evaluation of increased shortness of breath of the last 1-2 days with severe shortness of breath prior to coming to the emergency department. Patient was using her nebulizer he was with no relief for shortness of breath, paramedics report that the patient's O2 saturation on 3 L of nasal cannula was 70%, patient was placed on CPAP 100% FiO2 with improvement of her symptoms. She also received DuoNeb/albuterol nebulizer in route, Solu-Medrol 125 mg IV. Patient was taken off CPAP and placed on BiPAP. Lung exam revealed diffuse wheezing and rhonchi with symmetric breath sounds exam was otherwise unremarkable. Differential diagnosis: ?Includes but is not limited to exacerbation of chronic lung disease, hypoxia, anemia, electrolyte abnormalities Course: 01:34 Patient was placed on BiPAP with inspiratory pressure 14, expiratory pressure of 6, respiratory rate of 14 and FiO2 of 50%. Patient was ordered to get the bronchodilator protocol as per respiratory therapy. Patient was [address] segment depression in 2, 3, AVF, are new compared to 07/02/2024. Patient was given albuterol 10 mg and ipratropium 0.5 mg nebulizer through the BiPAP machine. 04:38 hours The patient was treated with My independent interpretation patient's laboratory evaluation as follows: CBC was normal. CMP revealed an elevated glucose of 105, elevated AST and ALT of 47 and 38. COVID-19, influenza and RSV tests were negative. VBG revealed a normal pH of .7.40 and a pCO2 of 52 which is at her baseline. Troponin was detectable but not elevated at 12.2. Repeat will be done now. Lactic acid was normal. The radiologist noted nonspecific pulmonary opacities in the right upper lobe which may be consistent with the early pneumonia versus pneumonitis, therefore I ordered ceftriaxone 1 g IV and azithromycin 500 mg IV. The patient was significantly improved and he was taken off BiPAP. I did discuss admission over tiger text with the covering hospitalist, Dr. Wilkes and the patient will be admitted for further treatment. Admission/Observation Consideration of admission/observation: Escalation of care including admission/observation considered (Yes) Lab Data MDM Lab Attestation statement: I reviewed the patient's lab results. 08/03/24 01:39 08/03/24 01:36 Labs: Lab Results 08/03/24 08/03/24 08/03/24 Range/Units 01:36 01:39 01:41 WBC 7.2 (4.8-10.8) X10*3/uL RBC 4.31 (4.20-5.50) X10*6/uL Hgb 13.7 (12.0-16.0) g/dl Hct 40.4 (37.0-47.0) % MCV 93.7 (80.0-98.0) fL MCH 31.8 (27.0-33.0) pg MCHC 33.9 (31.0-35.0) g/dl RDW 13.2 (11.0-16.0) % Plt Count 331 (160-400) X10*3/uL MPV 9.2 L (9.4-12.3) fL Immature Gran % (Auto) 0.1 (0.0-0.4) % Neut % (Auto) 43.9 L (45-73) % Lymph % (Auto) 36.0 (20-40) % Sampson % (Auto) 11.6 H (2-11) % Eos % (Auto) 7.6 H (0-4) % Baso % (Auto) 0.8 (0-2) % Lymph # (Auto) 2.6 (1.2-4.9) X10*3/uL Sampson # (Auto) 0.8 (0.1-1.2) X10*3/uL Eos # (Auto) 0.6 H (0.0-0.4) X10*3/uL Baso # (Auto) 0.1 (0.0-0.2) X10*3/uL Abs Immat Gran (auto) 0.01 (0.00-0.03) X10*3/uL Absolute Neuts (auto) 3.2 (2.0-8.3) x10*3/uL Absolute Nucleated RBC 0.000 (0.0-0.012) X10*3/uL Nucleated RBC % (auto) 0.0 (0.0-0.2) /100WBC APTT 28.5 (26.0-36.8) SEC VBG pH (7.32-7.43) VBG pCO2 mmHg VBG pO2 mmHg VBG HCO3 (22-26) mmol/L VBG O2 Saturation % VBG Base Excess mmol/L Sodium 143 (135-145) mmol/L Potassium 3.6 (3.3-5.1) mmol/L Chloride 105 (96-108) mmol/L Carbon Dioxide 28 (22-29) mmol/L Anion Gap 14 (12-20) BUN 11 (9-16) mg/dL Creatinine 0.75 (0.5-1.4) mg/dL Estim Creat Clear Calc 79.8 Estimated GFR > 60 Random Glucose 150 H (60-115) mg/dL Lactic Acid 1.6 (0.5-2.0) mmol/L Calcium 10.1 D (8.4-10.2) mg/dL Magnesium 1.7 (1.6-2.6) mg/dL Total Bilirubin 0.3 (0.0-1.0) mg/dL AST 47 H (5-31) U/L ALT 38 H (0-31) U/L Alkaline Phosphatase 71 (39-117) U/L Troponin I High Sens 12.2 (<3.5-17.0) ng/L B-Natriuretic Peptide 52 (<100) pg/mL Total Protein 7.8 (6.5-8.0) g/dL Albumin 4.1 (3.5-5.0) g/dL Lipase 19 (8-78) U/L Influenza Type A (PCR) NEGATIVE (Negative) Influenza Type B (PCR) NEGATIVE (Negative) RSV RNA Qual (PCR) NEGATIVE (Negative) SARS-CoV-2 RNA (RT-PCR) NEGATIVE (Negative) 08/03/24 Range/Units 01:44 WBC (4.8-10.8) X10*3/uL RBC (4.20-5.50) X10*6/uL Hgb (12.0-16.0) g/dl Hct (37.0-47.0) % MCV (80.0-98.0) fL MCH (27.0-33.0) pg MCHC (31.0-35.0) g/dl RDW (11.0-16.0) % Plt Count (160-400) X10*3/uL MPV (9.4-12.3) fL Immature Gran % (Auto) (0.0-0.4) % Neut % (Auto) (45-73) % Lymph % (Auto) (20-40) % Sampson % (Auto) (2-11) % Eos % (Auto) (0-4) % Baso % (Auto) (0-2) % Lymph # (Auto) (1.2-4.9) X10*3/uL Sampson # (Auto) (0.1-1.2) X10*3/uL Eos # (Auto) (0.0-0.4) X10*3/uL Baso # (Auto) (0.0-0.2) X10*3/uL Abs Immat Gran (auto) (0.00-0.03) X10*3/uL Absolute Neuts (auto) (2.0-8.3) x10*3/uL Absolute Nucleated RBC (0.0-0.012) X10*3/uL Nucleated RBC % (auto) (0.0-0.2) /100WBC APTT (26.0-36.8) SEC VBG pH 7.40 (7.32-7.43) VBG pCO2 52 mmHg VBG pO2 57 mmHg VBG HCO3 33 H (22-26) mmol/L VBG O2 Saturation 87.0 % VBG Base Excess 6.8 mmol/L Sodium (135-145) mmol/L Potassium (3.3-5.1) mmol/L Chloride (96-108) mmol/L Carbon Dioxide (22-29) mmol/L Anion Gap (12-20) BUN (9-16) mg/dL Creatinine (0.5-1.4) mg/dL Estim Creat Clear Calc Estimated GFR Random Glucose (60-115) mg/dL Lactic Acid (0.5-2.0) mmol/L Calcium (8.4-10.2) mg/dL Magnesium (1.6-2.6) mg/dL Total Bilirubin (0.0-1.0) mg/dL AST (5-31) U/L ALT (0-31) U/L Alkaline Phosphatase (39-117) U/L Troponin I High Sens (<3.5-17.0) ng/L B-Natriuretic Peptide (<100) pg/mL Total Protein (6.5-8.0) g/dL Albumin (3.5-5.0) g/dL Lipase (8-78) U/L Influenza Type A (PCR) (Negative) Influenza Type B (PCR) (Negative) RSV RNA Qual (PCR) (Negative) SARS-CoV-2 RNA (RT-PCR) (Negative) Independent Interpretation I performed an independent interpretation of an: EKG Interpretation: My independent interpretation patient's laboratory evaluation done on 08/03/2024 at 01:27 hours is as follows: Sinus tachycardia with a rate of 111, normal ID interval, QRS duration QTC interval, no ST segment elevation, less than [address] segment depression leads 2, 3, AVF, V4 through V6, no PACs, no PVCs, no significant T-wave abnormalities. Compared to EKG dated 07/02/2024 at 02:[address] segment depressions in the inferior leads are new but the ST segment depressions in V4 through V6 are old. My interpretation of the patient's chest x-ray is as follows: No acute disease. Radiology Impression Discussion of test interpretation with radiology: I have reviewed the radiologist's reading. Radiologist Impression: 1 view chest x-ray Comparison: Chest x-ray from 07/02/2024 Findings: Mild pulmonary opacities including right upper lobe are nonspecific and may reflect pneumonitis and/pneumonia. Low lung volumes with mild bibasilar atelectasis. No pneumothorax or pleural effusion. Imaged mediastinum and imaged osseous structures appear unchanged. IMPRESSION: Mild pulmonary opacities are nonspecific and may reflect pneumonitis including imaged right upper lobe. Recommend attention on follow-up to ensure resolution. This document has been electronically signed by: Doroteo Green MD on 08/03/2024 02:07:38 Dictated By: Doroteo Green MD Independent Historian Clinical information obtained from an independent historian. History obtained from or confirmed by: EMS External Record Review External record reviewed: Inpatient record Chronic Conditions Patient?s care impacted by: Hypertension and Other (COPD) Critical Care Time Critical Care Time Critical Care Time: Yes Total Critical Care Time: 45 Attestation: Critical Care: The patient was critically ill with a high probability of imminent or life threatening deterioration. I spent greater than 30 minutes of discontinuous time evaluating the patient,delivering critical care at the bedside, discussing and evaluating pertinent data with consultants. Critical care time does not include time spent performing separately billable procedures or teaching. Total time spent performing critical care was 45 minutes. Discharge Plan Discharge Patient Disposition: Admitted As Inpatient Print Language: Azeri
--- NOTE | 2024-08-03 01:21 | ECG_ITS ---
Test Reason : DYSPNEA Blood Pressure : */* mmHG Vent. Rate : 111 BPM Atrial Rate : 111 BPM P-R Int : 138 ms QRS Dur : 94 ms QT Int : 334 ms P-R-T Axes : 78 73 -29 degrees QTcB Int : 454 ms Sinus tachycardia Possible Left atrial enlargement ST & T wave abnormality, consider inferior ischemia Abnormal ECG When compared with ECG of 02-Jul-2024 02:58, T wave inversion now evident in Inferior leads Referred By: Bakari Escalona Electronically Signed By: ANGEL HARRISON
[2024-08-03 01:45] LABS: Basophils Absolute Auto 0.1 X10*3/uL (0.0-0.2); Basophils Percent Auto 0.8 % (0-2); Eosinophils Absolute Auto 0.6 X10*3/uL (0.0-0.4); Eosinophils Percent Auto 7.6 % (0-4); Hematocrit 40.4 % (37.0-47.0); Hemoglobin 13.7 g/dl (12.0-16.0); Imm Gran Abs Auto 0.01 X10*3/uL (0.00-0.03); Imm Gran Pct Auto 0.1 % (0.0-0.4); Lymphocytes Absolute Auto 2.6 X10*3/uL (1.2-4.9); MANUAL DIFF FLAG NO; Mean Corpuscular HGB Conc 33.9 g/dl (31.0-35.0); Mean Corpuscular Hemoglobin 31.8 pg (27.0-33.0); Mean Corpuscular Volume 93.7 fL (80.0-98.0); Mean Platelet Volume 9.2 fL (9.4-12.3); Monocytes Absolute Auto 0.8 X10*3/uL (0.1-1.2); Monocytes Percent Auto 11.6 % (2-11); Neutrophils Absolute Auto 3.2 x10*3/uL (2.0-8.3); Neutrophils Percent Auto 43.9 % (45-73); Platelet Count 331 X10*3/uL (160-400); Red Blood Count 4.31 X10*6/uL (4.20-5.50); Red Cell Distribution Width 13.2 % (11.0-16.0); White Blood Count 7.2 X10*3/uL (4.8-10.8)
[2024-08-03 01:46] LABS: Venous Blood Gas Refer to POC result
[2024-08-03 01:48] LABS: VBG Base Excess 6.8 mmol/L; VBG HCO3 33 mmol/L (22-26); VBG pCO2 52 mmHg; VBG pO2 57 mmHg
[2024-08-03] MEDS: 0.9 % Sodium Chloride 1,000 ML 999 ML IV (01:52)
[2024-08-03 01:54] LABS: Partial Thromboplastin Time 28.5 SEC (26.0-36.8)
[2024-08-03 02:07] LABS: Lactic Acid 1.6 mmol/L (0.5-2.0)
[2024-08-03 02:11] LABS: Troponin-I High Sensitivity 12.2 ng/L (<3.5-17.0)
[2024-08-03 02:14] LABS: Alanine Aminotransferase 38 U/L (0-31); Albumin Level 4.1 g/dL (3.5-5.0); Anion Gap 14 (12-20); Aspartate Amino Transferase 47 U/L (5-31); Bilirubin Total 0.3 mg/dL (0.0-1.0); Blood Urea Nitrogen 11 mg/dL (9-16); Calcium 10.1 mg/dL (8.4-10.2); Carbon Dioxide 28 mmol/L (22-29); Chloride 105 mmol/L (96-108); Creatinine Clr Calc Pharmacy 79.8; Estimated Glomerular Filt Rate > 60; Glucose Random 150 mg/dL (60-115); Lipase 19 U/L (8-78); Magnesium 1.7 mg/dL (1.6-2.6); Potassium 3.6 mmol/L (3.3-5.1); Sodium 143 mmol/L (135-145); Total Protein 7.8 g/dL (6.5-8.0)
[2024-08-03 02:24] LABS: Alkaline Phosphatase 71 U/L (39-117)
[2024-08-03] MEDS: LORazepam 2 MG/ML VIAL 1 MG IVPUSH (02:27)
[2024-08-03 02:30] LABS: B Type Natriuretic Peptide 52 pg/mL (<100)
[2024-08-03 02:34] LABS: Influenza A PCR NEGATIVE (Negative); Influenza B PCR NEGATIVE (Negative); Resp Syncy Virus RNA Qual PCR NEGATIVE (Negative); SARS COV2 PCR INHOUSE NEGATIVE (Negative)
[2024-08-03] MEDS: Azithromycin 500 MG in 0.9 % Sodium Chloride 250 ML 125 MG IV (05:06)
[2024-08-03] MEDS: cefTRIAXone sodium 500 MG VIAL IVPUSH (05:06)
[2024-08-03 05:30] LABS: Troponin-I High Sensitivity 36.2 ng/L (<3.5-17.0)
--- NOTE | 2024-08-03 06:05 | P.HPHOSP_ITS ---
History of Present Illness Date of Service: 08/03/24 Chief Complaint: Dyspnea This is a 59-year-old female with pertinent history of chronic hypoxemic respiratory failure due to COPD on 2-3 L supplemental oxygen at baseline, hypertension, mixed hyperlipidemia, history of CVA, trigeminal neuralgia, mood disorder, lower extremity edema who presents to the emergency department for evaluation of dyspnea. Patient states her symptoms started 1 day prior to presentation. Patient is having dyspnea which is worse with exertion. Also has been having cough with intermittent sputum production and associated wheezing. No improvement with home inhaler. She uses 1-2 L supplemental oxygen at rest and 3 L supplemental oxygen during exertion. Patient was found satting 70% on her home 3 L supplemental oxygen. No fever, chills, chest pain, palpitations, abdominal pain, leg edema, PND, orthopnea, changes in urinary or bowel habits. In the emergency department, patient initially required NIV. Imaging with right-sided pulmonary opacity. Patient was given systemic steroids, multiple DuoNeb treatments and empiric IV antibiotics in the ER. Review of Systems 2 Constitutional: Constitutional: Reports fatigue, Reports malaise and Reports weakness Cardiovascular: Cardiovascular: Reports dyspnea on exertion Respiratory: Respiratory: Reports cough, Reports dyspnea on exertion and Reports wheezing Gastrointestinal: Gastrointestinal: Reports no additional gastrointestinal complaints Genitourinary: Genitourinary: Reports no additional female genitourinary complaints Neurologic: Reports weakness Endocrine: Endocrine: Reports fatigue Allergic/Immunologic: Allergic/Immunologic: Reports wheezing [facility] Medical History Hypertension Chronic hypercapnic respiratory failure Aortic stenosis Obesity (BMI 30-39.9) Asthma Acute exacerbation of chronic obstructive pulmonary disease Chronic lung disease Hypogammaglobulinemia Smoker JUANITO (obstructive sleep apnea) Allergies Elevated troponin COPD (chronic obstructive pulmonary disease) Trigeminal neuralgia Pulmonary nodules Mixed hyperlipidemia Peripheral neuropathy Tobacco use disorder Mood disorder Surgical History History of esophagogastroduodenoscopy (EGD) History of colonoscopy History of lumbar discectomy History of tubal ligation History of excision of mass History of shoulder surgery Social History Household Members: Spouse Housing: Condominium Do you presently have visiting nurse or other home services: No Alcohol intake: never Comment: refusing bed alarm Patient Tobacco Use Status: Former Tobacco user Tobacco use type: Cigarette Cigarette Packs Per Day: 4 Cigarettes Per Day: 80.0 Years Smoked: 40 Smoked in Last 30 Days: No e-Cigarette/Vaping Use: Former Use Second Hand Smoke Exposure: No Use of substances other than those prescribed or required for medical reasons: No Substance Use Type: Marijuana Advance Directives: No Advance Directives Information Provided: Yes Advance Directives Date on File: 03/09/23 Patient : No service: No Meds Allergies Allergy/AdvReac Type Severity Reaction Status Date / Time Iodinated Contrast Media Allergy Intermediate HIVES Verified 08/03/24 01:25 [IV CONTRAST] latex [LATEX] Allergy Unknown RASH Verified 08/03/24 01:25 adhesive tape Allergy Rash Verified 08/03/24 01:25 morphine [MORPHINE] AdvReac Unknown VOMITING Verified 08/03/24 01:25 Active Medications: Current Medications Azithromycin 500 mg/ Sodium (Chloride) 250 mls @ 125 mls/hr IV ONCE ONE Stop: 08/03/24 06:36 Last Admin: 08/03/24 05:06 Dose: 125 mls/hr Home Medications ?Medication ?Instructions ?Recorded ?Confirmed ?Last Taken ?Type atorvastatin 80 mg tablet 80 mg PO DAILY@199903/04/23 07/02/24 06/04/24 History [id number] 1 tab PO DAILY MRX1 PRN Headache 03/04/23 07/02/24 05/21/24 20:00 History 50 mg-325 mg-40 mg tablet duloxetine 60 mg capsule,delayed 60 mg PO BID@0500,199903/04/23 07/02/24 06/04/24 History release gabapentin 300 mg capsule 1,200 mg PO TID@0500,1200,199903/04/23 07/02/24 06/04/24 History hyoscyamine sulfate 0.125 mg tablet 0.25 mg PO Q6H PRN Abdominal 03/04/23 07/02/24 05/21/24 20:00 History Discomfort lorazepam 1 mg tablet 1 mg PO DAILY PRN Anxiety 03/04/23 07/02/24 05/21/24 20:00 History oxcarbazepine 600 mg tablet 600 mg PO BID@0500,2000 03/04/23 07/02/24 06/04/24 History Oxygen Home Use 04/16/23 03/10/24 03/10/24 History prazosin 2 mg capsule 2 mg PO DAILY@199904/16/23 07/02/24 06/04/24 History albuterol sulfate 90 mcg/actuation 2 puff inhalation Q4H PRN 01/31/24 07/02/24 05/21/24 20:00 History aerosol inhaler Shortness Of Breath Or Wheezing fluticasone fur. 200 mcg-umeclid 1 inh inhalation DAILY 02/14/24 07/02/24 06/04/24 History 62.5 mcg-vilant 25 mcg inhalat.powder (Trelegy Ellipta) furosemide 20 mg tablet 20 mg PO DAILY@0500 05/01/24 07/02/24 06/04/24 History aspirin 81 mg tablet,delayed 81 mg PO DAILY@0500 05/22/24 07/02/24 06/04/24 History release calcium 600 mg (as 1 tab PO DAILY@0500 06/20/24 07/02/24 Unknown History carbonate)-vitamin D3 5 mcg (200 unit) tablet baclofen 10 mg tablet 10 mg PO DAILY@0500,1200,199907/02/24 07/02/24 Unknown History baclofen 5 mg tablet 5 mg PO DAILY@0500,1200,199907/02/24 07/02/24 Unknown History hydrocodone 5 mg-acetaminophen 325 1 tab PO DAILY 07/02/24 07/02/24 Unknown History mg tablet verapamil 120 mg tablet 120 mg PO BID@0500,199907/02/24 07/02/24 Unknown History Physical Exam 2 Vital Signs and Narrative: Vital Signs: Last Vital Signs Temp 97.5 F 08/03/24 01:18 Pulse 91 08/03/24 02:59 Resp 20 08/03/24 02:59 BP 144/74 H 08/03/24 02:59 Pulse Ox 98 08/03/24 02:59 O2 Del Method BiPAP 08/03/24 02:59 FiO2 50 08/03/24 01:18 BMI result Body Mass Index 37.0 Middle-aged female lying in bed in mild distress on supplemental oxygen Neck supple, no JVD Regular rate and rhythm, S1-S2 heard Bilateral wheezing appreciated Abdomen soft nontender, no guarding, no rigidity Patient is awake, alert and oriented to self, place, time and person ; no focal motor deficit Psych: Normal mood No pedal edema Results Labs 08/03/24 01:39 08/03/24 01:36 Labs: Laboratory Results - last 24 hr 08/03/24 08/03/24 08/03/24 01:36 01:39 01:41 MCV 93.7 MCH 31.8 MCHC 33.9 RDW 13.2 Plt Count 331 MPV 9.2 L Immature Gran % (Auto) 0.1 Neut % (Auto) 43.9 L Lymph % (Auto) 36.0 Jerome % (Auto) 11.6 H Eos % (Auto) 7.6 H Baso % (Auto) 0.8 Lymph # (Auto) 2.6 Jerome # (Auto) 0.8 Eos # (Auto) 0.6 H Baso # (Auto) 0.1 Abs Immat Gran (auto) 0.01 Absolute Neuts (auto) 3.2 Absolute Nucleated RBC 0.000 Nucleated RBC % (auto) 0.0 APTT 28.5 VBG pH VBG pCO2 VBG pO2 VBG HCO3 VBG O2 Saturation VBG Base Excess Anion Gap 14 Estim Creat Clear Calc 79.8 Estimated GFR > 60 Random Glucose 150 H Lactic Acid 1.6 Calcium 10.1 D Magnesium 1.7 Total Bilirubin 0.3 AST 47 H ALT 38 H Alkaline Phosphatase 71 B-Natriuretic Peptide 52 Total Protein 7.8 Albumin 4.1 Lipase 19 Influenza Type A (PCR) NEGATIVE Influenza Type B (PCR) NEGATIVE RSV RNA Qual (PCR) NEGATIVE SARS-CoV-2 RNA (RT-PCR) NEGATIVE 08/03/24 01:44 MCV MCH MCHC RDW Plt Count MPV Immature Gran % (Auto) Neut % (Auto) Lymph % (Auto) Jerome % (Auto) Eos % (Auto) Baso % (Auto) Lymph # (Auto) Jerome # (Auto) Eos # (Auto) Baso # (Auto) Abs Immat Gran (auto) Absolute Neuts (auto) Absolute Nucleated RBC Nucleated RBC % (auto) APTT VBG pH 7.40 VBG pCO2 52 VBG pO2 57 VBG HCO3 33 H VBG O2 Saturation 87.0 VBG Base Excess 6.8 Anion Gap Estim Creat Clear Calc Estimated GFR Random Glucose Lactic Acid Calcium Magnesium Total Bilirubin AST ALT Alkaline Phosphatase B-Natriuretic Peptide Total Protein Albumin Lipase Influenza Type A (PCR) Influenza Type B (PCR) RSV RNA Qual (PCR) SARS-CoV-2 RNA (RT-PCR) Assessment and Plan (1) Acute exacerbation of chronic obstructive pulmonary disease: Status: Acute Plan This is a 59-year-old female with pertinent history of chronic hypoxemic respiratory failure due to COPD on 2-3 L supplemental oxygen at baseline, hypertension, mixed hyperlipidemia, history of CVA, trigeminal neuralgia, mood disorder who presents to the emergency department for evaluation of dyspnea. #. Acute on chronic hypoxemic respiratory failure due to acute exacerbation of COPD in the setting of right-sided pneumonia: Will admit patient and initiate IV ceftriaxone and IV azithromycin. Patient with chronic hypoxemic respiratory failure and on 2-3 L supplemental oxygen at baseline. Scheduled and p.r.n. DuoNebs. Continue home inhaler. Initiating systemic steroids. #. History of CVA/mixed hyperlipidemia: On aspirin and statin #. Hypertension: On amlodipine #. Trigeminal neuralgia: On baclofen, gabapentin, Tegretol, Cymbalta. #. Mood disorder: Continue home mood stabilizers #. Obesity class 2: Weight loss encouraged #. Lower extremity edema: On Lasix #. JUANITO: Noncompliant with NIV at home Med rec pending DVT prophylaxis: Lovenox Full code Admit as inpatient and will require two night minimum hospital stay for supplemental oxygen, IV antibiotics (as above), which is not possible in a lesser acute setting. Quality Stroke Does the patient have a stroke diagnosis?: No VTE Prior VTE?: No VTE Risk Level:: Medical - moderate - high VTE Device Contraindication: Treatment Not Indicated VTE Drug Contraindication: N/A - Med Ordered
[2024-08-03] MEDS: Albuterol Sulfate 7.5 MG, Albuterol/Iprat 2.5/0.5MG 3 ML 3 ML INHALE (06:41)
[2024-08-03] MEDS: cefTRIAXone sodium 1 GM VIAL IVPUSH (06:49)
--- NOTE | 2024-08-03 07:13 | PC.NURSE ---
Pt Arrived via ambulance from home for sob. Pt was on 4LNC with spo2: 70'% and RR30-40's per EMS. Pt received duoneb, albuterol, and IV solumedrol 125mg. IV #20 Placed by EMS< with good blood return and patency. All labs, cultures, CXR, complete, and pt given IV fluids, IV ativan, IV ceftriaxone and Azithromycin. Pt on Bipap 14/6 @50%, with SpO2:98%. Pt respiratory status improved and able to wean down to baseline 2LNC. Pt 1 assist to the commode. refused Lovenox. Pt c/o pain in Left face nad headache to trigeminal neuralgia which improved. Pt c/o hip pain at this time. MD notified, this RN gave report to oncoming HUA Mathew and plan of care ongoing.
[2024-08-03] MEDS: predniSONE 20 MG TABLET 40 MG PO (08:20)
[2024-08-03] MEDS: 0.9 % Sodium Chloride Flush 3 ML SYRINGE IVFLUSH ×2 (08:21→16:17)
--- NOTE | 2024-08-03 08:48 | PHA.MEDREC ---
Addendum entered by Loida Burnett RPh 08/03/24 10:37: Reviewed by [facility]. Confirmed with pt, she is still taking Trileptal 600mg BID at home until she finishes her current stock at home, and then will increase to 300mg TID. Pt takes Lorazepam 1mg prn for severe anxiety, and 0.5mg for moderate anxiety. Original Note: Pharmacy Consult ? Medication Reconciliation Pharmacy has completed the medication reconciliation. Spoke with patient and she confirmed her medications with me. She states she is taking her Baclofen 10mg tab 1 1/2 tabs daily for a total of 15mg daily and states she had 5mg tabs at home but ran out of those. She confirmed she stopped taking the Furosemide 20mg tab even tho it was just recently filled 07/13 but she stated she is not taking it. She states she is still taking the hydrocodone-acetaminophen 5-325mg tab daily and not as needed even tho that has not been filled sine 06/20 for 28 days. She confirmed the Lorazepam and confirmed she has both the Lorazepam 0.5mg tab and 1mg tab at home and states she still takes both as needed and has been taking the 1mg tab more recently (about 3-4 days ago). She confirmed she last took her medications last night.
[2024-08-03] MEDS: Albuterol/Iprat 2.5/0.5MG 3 ML AMPUL.NEB INHALE ×5 (09:02→21:41)
[2024-08-03] MEDS: Baclofen 10 MG TABLET 15 MG PO ×2 (11:07→20:58)
[2024-08-03] MEDS: Gabapentin 400 MG CAPSULE 1200 MG PO ×2 (11:07→20:58)
[2024-08-03] MEDS: Acetaminophen 325 MG TABLET 650 MG PO (11:07)
[2024-08-03] MEDS: Butalb/Acetamin/Caff 50/325/40 TABLET 1 TAB PO ×2 (11:07→21:36)
[2024-08-03] MEDS: DULoxetine HCl 60 MG CAPSULE.DR PO ×2 (12:39→20:58)
[2024-08-03] MEDS: VerapamiL HCL 120 MG TABLET PO ×2 (13:09→21:36)
[2024-08-03] MEDS: OXcarbazepine 300 MG TABLET 600 MG PO ×2 (13:20→20:58)
--- NOTE | 2024-08-03 14:30 | PM.EVENT ---
Event Note Date of Service: 08/03/24 Event Note: This patient is seen and examined by hospitalist service this morning ,seens and exmained again sob /cough somewhat improving Physical exam and assessment and plan coordinated in h&P note, Agree with the plan in addition:Acute on chronic hypoxemic respiratory failure due to acute exacerbation of COPD in the setting of right-sided pneumonia: continue nebs ,steriods,antibiotics,taper oxygen Time Spent With Patient Time: Total time managing care of this patient today ____ minutes.
[2024-08-03 15:10] LABS: Adenovirus PCR Not Detected (Not Detect.); Bordetella parapertussis PCR Not Detected (Not Detect.); Bordetella pertussis PCR Not Detected (Not Detect.); Chlamydia pneumoniae PCR Not Detected (Not Detect.); Coronavirus 229E PCR Not Detected (Not Detect.); Coronavirus HKU1 PCR Not Detected (Not Detect.); Coronavirus NL63 PCR Not Detected (Not Detect.); Coronavirus OC43 PCR Not Detected (Not Detect.); Human metapneumovirus PCR Not Detected (Not Detect.); Influenza A PCR Not Detected (Not Detect.); Influenza B PCR Not Detected (Not Detect.); Mycoplasma pneumoniae PCR Not Detected (Not Detect.); Parainfluenza 1 PCR Not Detected (Not Detect.); Parainfluenza 2 PCR Not Detected (Not Detect.); Parainfluenza 3 PCR Not Detected (Not Detect.); Parainfluenza 4 PCR Not Detected (Not Detect.); RSV PCR Not Detected (Not Detect.); Rhino/Enterovirus PCR Not Detected (Not Detect.)
[2024-08-03 15:34] LABS: SARS-CoV-2 PCR Not Detected (Not Detect.)
--- NOTE | 2024-08-03 15:54 | MHC.CM.PN ---
PT REPORTS SHE LIVES AT HOME WITH HER AND IS INDEPENDENT WITH CARE SHE HAS HOME O2 AND A ROLLATOR HCP ON FILE PCP: HODA MALDOANDO DCP: PT REFUSING STR NO MATTER THE RECOMMENDATIONS, SHE STATES SHE HAS BEEN THERE, THEY DO NOT WORK AND SHE CANNOT RISK EXPOSURE TO OTHER ILLNESSES SHE IS AWARE SHE CANNOT HAVE VNA, PT HAS BEEN DENIES BY EVERY VNA IN THE AREA, CONTRACTED WITH HER INSURANCE, DUE TO HER HX OF NON-COMPLIANCE PT WILL DC HOME WITH NO SERVICES WILL TRANSPORT
[2024-08-03] MEDS: HYDROcodone Bit/Acetam 7.5/325 TABLET 1 TAB PO (17:50)
[2024-08-03] MEDS: Prazosin HCL 1 MG CAPSULE 2 MG PO (20:09)
[2024-08-03] MEDS: Aspirin Enteric Coated 81 MG TABLET.DR PO (20:09)
[2024-08-03] MEDS: Atorvastatin Calcium 80 MG TABLET PO (20:14)
--- NOTE | 2024-08-03 21:21 | PC.NURSE ---
pharmacy to bring up medications not available in pyxis. pt also requesting pain medication for headache at this time.vss.
[2024-08-03] MEDS: LORazepam 1 MG TABLET PO (21:36)
--- NOTE | 2024-08-03 21:40 | PC.NURSE ---
pt requesting cough medicine and pain medication at this time, provider contacted, no new orders at this time. RT at bedside completing breathing treatment.
[2024-08-04] VITALS (12 sets, daily range): BP systolic 128–165; BP diastolic 56–89; PULSE 72–128; RESP 16–30; TEMP 36–36.7; O2SAT 93–100
--- NOTE | 2024-08-04 01:14 | MHC.EDTECH ---
This tech took over care of patient at 2300,rounded and introduced self to pt,vitals taken, patient has a pure-wick in place done by previous shift, emptied 1200MLS from canister (yellow in color),patient appears comfortable call dumont in reach
[2024-08-04 04:31] LABS: Basophils Percent Auto 0.4 % (0-2); Eosinophils Absolute Auto 0.1 X10*3/uL (0.0-0.4); Eosinophils Percent Auto 1.4 % (0-4); Hemoglobin 12.7 g/dl (12.0-16.0); Imm Gran Abs Auto 0.02 X10*3/uL (0.00-0.03); Imm Gran Pct Auto 0.2 % (0.0-0.4); Lymphocytes Absolute Auto 1.7 X10*3/uL (1.2-4.9); MANUAL DIFF FLAG NO; Mean Corpuscular HGB Conc 33.4 g/dl (31.0-35.0); Mean Corpuscular Hemoglobin 31.8 pg (27.0-33.0); Mean Platelet Volume 8.9 fL (9.4-12.3); Monocytes Percent Auto 12.3 % (2-11); Neutrophils Absolute Auto 5.2 x10*3/uL (2.0-8.3); Neutrophils Percent Auto 64.7 % (45-73); Platelet Count 300 X10*3/uL (160-400); Red Cell Distribution Width 13.3 % (11.0-16.0); White Blood Count 8.1 X10*3/uL (4.8-10.8)
[2024-08-04 04:47] LABS: Anion Gap 13 (12-20); Blood Urea Nitrogen 12 mg/dL (9-16); Calcium 9.4 mg/dL (8.4-10.2); Carbon Dioxide 26 mmol/L (22-29); Chloride 106 mmol/L (96-108); Creatinine Clr Calc Pharmacy 93.6; Estimated Glomerular Filt Rate > 60; Glucose Random 123 mg/dL (60-115); Potassium 3.8 mmol/L (3.3-5.1); Sodium 141 mmol/L (135-145)
[2024-08-04] MEDS: cefTRIAXone sodium 1 GM VIAL IVPUSH (05:54)
[2024-08-04] MEDS: OXcarbazepine 300 MG TABLET 600 MG PO ×2 (05:54→19:54)
[2024-08-04] MEDS: Gabapentin 400 MG CAPSULE 1200 MG PO ×3 (05:55→19:53)
[2024-08-04] MEDS: Calcium Oyster Shell Elemental 500 MG TABLET PO (05:55)
[2024-08-04] MEDS: DULoxetine HCl 60 MG CAPSULE.DR PO ×2 (05:55→19:53)
[2024-08-04] MEDS: Baclofen 10 MG TABLET 15 MG PO ×3 (05:55→19:52)
--- NOTE | 2024-08-04 06:06 | PC.NURSE ---
pt medicated per mar, tolerated well with water. pt reporting back pain, provider aware, no new order. rt called to bedside for requested breathing treatment.
[2024-08-04] MEDS: Albuterol/Iprat 2.5/0.5MG 3 ML AMPUL.NEB INHALE ×5 (06:20→20:04)
--- NOTE | 2024-08-04 06:47 | PC.NURSE ---
pharmacy to bring up medication not available in pyxis.
[2024-08-04] MEDS: VerapamiL HCL 120 MG TABLET PO ×2 (07:46→19:54)
--- NOTE | 2024-08-04 09:07 | HO.PM.IMPN ---
Subjective Subjective Date of Service: 08/04/24 Interval History: copd excerebation Review of Systems sob seems somewhat improving has cough no fever Physical Exam Vital Signs: Vital Signs: Last Vital Signs Temp 97.7 F 08/04/24 04:22 Pulse 106 H 08/04/24 08:05 Resp 20 08/04/24 08:05 BP 128/75 08/04/24 04:22 Pulse Ox 95 08/04/24 04:22 O2 Del Method Nasal Cannula 08/04/24 04:22 O2 Flow Rate 2 08/04/24 04:22 FiO2 50 08/03/24 01:18 BMI result Body Mass Index 37.0 Appearance: Alert.? Oriented X3.? sob. cvs: rrr, [id number] . res: air entry diminshed ,has few rhonchii abd: no rebound or guarding ,nt, bs present. ext pulses present , no cyanosis neuro: axo3 , nonfocal. Objective Data Active Medications Acetaminophen (Acetaminophen 325 Mg Tablet) 650 mg PO Q6H [facility] Last Admin: 08/04/24 04:09 Dose: Not Given Documented By: SATHYA Non-Admin Reason: Patient Refused Acetaminophen/Butalbital/Caffeine (Butalb/Acetamin/Caff 50/325/40 Tablet) 1 tab PO DAILY MRX1 PRN PRN Reason: Headache Last Admin: 08/03/24 21:36 Dose: 1 tab Documented By: SATHYA Hydrocodone Bitart/Acetaminophen (Hydrocodone Bit/Acetam 5/325 Tablet) 1 tab PO DAILY [facility] Albuterol/Ipratropium (Albuterol/Iprat 2.5/0.5mg 3 Ml Ampul.Neb) 3 ml INHALE Q4H PRN PRN Reason: Wheezing Last Admin: 08/04/24 06:20 Dose: 3 ml Documented By: JOHN Albuterol/Ipratropium (Albuterol/Iprat 2.5/0.5mg 3 Ml Ampul.Neb) 3 ml INHALE RQ4H WHILE AWAKE [facility] Last Admin: 08/04/24 08:03 Dose: 3 ml Documented By: MARYLU Aspirin (Aspirin Enteric Coated 81 Mg Tablet.) 81 mg PO DAILY@1999 [facility] Last Admin: 08/03/24 20:09 Dose: 81 mg Documented By: SATHYA Atorvastatin Calcium (Atorvastatin Calcium 80 Mg Tablet) 80 mg PO DAILY@1999 [facility] Last Admin: 08/03/24 20:14 Dose: 80 mg Documented By: SATHYA Baclofen (Baclofen 10 Mg Tablet) 15 mg PO DAILY@499, [facility] Last Admin: 08/04/24 05:55 Dose: 15 mg Documented By: SATHYA Calcium Carbonate (Calcium Carbonate 750 Mg Tab.Chew) 750 mg PO Q4H PRN PRN Reason: Heartburn Calcium Carbonate (Calcium Oyster Shell Elemental 500 Mg Tablet) 500 mg PO DAILY@499 [facility] Last Admin: 08/04/24 05:55 Dose: 500 mg Documented By: SATHYA Ceftriaxone Sodium (Ceftriaxone Sodium 1 Gm Vial) 1 gm IVPUSH Q24H [facility] Last Admin: 08/04/24 05:54 Dose: 1 gm Documented By: SATHYA Duloxetine HCl (Duloxetine Hcl 60 Mg Capsule.Dr) 60 mg PO BID@ [facility] Last Admin: 08/04/24 05:55 Dose: 60 mg Documented By: SATHYA Gabapentin (Gabapentin 400 Mg Capsule) 1,200 mg PO TID@499, [facility] Last Admin: 08/04/24 05:55 Dose: 1,200 mg Documented By: SATHYA Guaifenesin (Guaifenesin 100 Mg/5 Ml 5 Ml Liquid) 5 ml PO Q4H PRN PRN Reason: Cough Azithromycin 500 mg/ Sodium (Chloride) 250 mls @ 125 mls/hr IV Q24H [facility] Lorazepam (Lorazepam 0.5 Mg Tablet) 0.5 mg PO DAILY PRN PRN Reason: Moderate Anxiety Lorazepam (Lorazepam 1 Mg Tablet) 1 mg PO DAILY PRN PRN Reason: Severe Anxiety Last Admin: 08/03/24 21:36 Dose: 1 mg Documented By: SATHYA Magnesium Hydroxide (Milk Of Magnesia 30 Ml Oral.Susp) 30 ml PO DAILY PRN PRN Reason: Constipation Melatonin (Melatonin 3 Mg Tablet) 6 mg PO BEDTIME PRN PRN Reason: Insomnia Ondansetron HCl (Ondansetron Hcl 4 Mg/2 Ml Vial) 4 mg IVPUSH Q8H PRN PRN Reason: Nausea and Vomiting Oxcarbazepine (Oxcarbazepine 300 Mg Tablet) 600 mg PO BID@ [facility] Last Admin: 08/04/24 05:54 Dose: 600 mg Documented By: SATHYA Prazosin HCl (Prazosin Hcl 1 Mg Capsule) 2 mg PO DAILY@1999 [facility]; Protocol Last Admin: 08/03/24 20:09 Dose: 2 mg Documented By: SATHYA Prednisone (Prednisone 20 Mg Tablet) 40 mg PO DAILY [facility] Last Admin: 08/03/24 08:20 Dose: 40 mg Documented By: REY Sodium Chloride (0.9 % Sodium Chloride Flush 3 Ml Syringe) 3 [facility] Last Admin: 08/04/24 07:07 Dose: Not Given Documented By: SERAFIN Non-Admin Reason: Previously Administered Verapamil HCl (Verapamil Hcl 120 Mg Tablet) 120 mg PO BID@ [facility]; Protocol Last Admin: 08/04/24 07:46 Dose: 120 mg Documented By: SERAFIN Labs 08/04/24 04:23 08/04/24 04:23 Labs: Laboratory Results - last 24 hr 08/03/24 08/04/24 11:45 04:23 MCV 95.0 MCH 31.8 MCHC 33.4 RDW 13.3 Plt Count 300 MPV 8.9 L Immature Gran % (Auto) 0.2 Neut % (Auto) 64.7 Lymph % (Auto) 21.0 Roosevelt % (Auto) 12.3 H Eos % (Auto) 1.4 Baso % (Auto) 0.4 Lymph # (Auto) 1.7 Roosevelt # (Auto) 1.0 Eos # (Auto) 0.1 Baso # (Auto) 0.0 Abs Immat Gran (auto) 0.02 Absolute Neuts (auto) 5.2 Absolute Nucleated RBC 0.000 Nucleated RBC % (auto) 0.0 Anion Gap 13 Estim Creat Clear Calc 93.6 Estimated GFR > 60 Random Glucose 123 H Calcium 9.4 D Respiratory Panel Marquez See Note Adenovirus (Rapid PCR) Not Detected B.pert (TEM-PCR) Not Detected B.parapertussis DNA PCR Not Detected C. pneumoniae DNA (PCR) Not Detected Coronavirus OC43 (PCR) Not Detected Coronavirus HKU1 (PCR) Not Detected Coronavirus 229E (PCR) Not Detected Coronavirus NL63 (PCR) Not Detected Human Metapneumovir PCR Not Detected Influenza A (RT-PCR) Not Detected Influenza B (RT-PCR) Not Detected M. pneumoniae (PCR) Not Detected Parainfluenza 1 (PCR) Not Detected Parainfluenza 2 (PCR) Not Detected Parainfluenza 3 (PCR) Not Detected Parainfluenza 4 (PCR) Not Detected RSV (PCR) Not Detected Entero/Rhino (PCR) Not Detected SARS-CoV-2 RNA (RT-PCR) Not Detected Microbiology Microbiology Results: Microbiology 08/03/24 01:41 Blood Culture - Preliminary Blood - Venous No growth after 24 hours. 08/03/24 01:41 Blood Culture - Preliminary Blood - Venous No growth after 24 hours. Assessment and Plan (1) Hypoxia: Status: Acute (2) Chronic lung disease: Status: Acute Plan 59-year-old female with pertinent history of chronic hypoxemic respiratory failure due to COPD on 2-3 L supplemental oxygen at baseline, hypertension, mixed hyperlipidemia, history of CVA, trigeminal neuralgia, mood disorder, lower extremity edema who presents to the emergency department for evaluation of dyspnea. Acute on chronic hypoxic respiratory failure due to Acute exacerbation of COPD and right-sided pneumonia: no fevers ,blood cultures neg@24hrs sob with minimal excersion Continue scheduled and p.r.n. DuoNebs,iv steroids, iv antibiotics,Wean back to home oxygen History of CVA/mixed hyperlipidemia: On aspirin and statin Hypertension: On Cardizem Trigeminal neuralgia: On baclofen,trileptal, Neurontin and Cymbalta. Mood disorder: Continue home mood stabilizers. Morbid obesity: Counseled regarding diet and exercise Lower extremity edema: On Lasix. JUANITO: Noncompliant with NIV at home ongoing need for hospital stay for supplemental oxygen, IV antibiotics (as above), which is not possible in a lesser acute setting. Quality Stroke Does the patient have a stroke diagnosis?: No VTE Prior VTE?: No VTE Risk Level:: Medical - moderate - high VTE Device Contraindication: Treatment Not Indicated VTE Drug Contraindication: N/A - Med Ordered
[2024-08-04] MEDS: HYDROcodone Bit/Acetam 5/325 TABLET 1 TAB PO (09:44)
[2024-08-04] MEDS: Azithromycin 500 MG in 0.9 % Sodium Chloride 250 ML 125 MG IV (09:45)
[2024-08-04] MEDS: predniSONE 20 MG TABLET 40 MG PO (09:48)
[2024-08-04] MEDS: guaiFENesin 100 MG/5 ML 5 ML LIQUID PO ×2 (14:14→19:50)
[2024-08-04] MEDS: Acetaminophen 325 MG TABLET 650 MG PO ×2 (17:25→21:32)
[2024-08-04] MEDS: 0.9 % Sodium Chloride Flush 3 ML SYRINGE IVFLUSH ×2 (17:27→23:00)
--- NOTE | 2024-08-04 18:51 | PC.NURSE ---
Patient refused all fall risk protocols, call dumont within reach, education about fall risk provided, pt. is alert and oriented and stated that she understtod.
[2024-08-04] MEDS: Aspirin Enteric Coated 81 MG TABLET.DR PO (19:52)
[2024-08-04] MEDS: Atorvastatin Calcium 80 MG TABLET PO (19:52)
[2024-08-04] MEDS: Prazosin HCL 1 MG CAPSULE 2 MG PO (19:54)
[2024-08-04] MEDS: LORazepam 0.5 MG TABLET PO (21:32)
[2024-08-05] VITALS (15 sets, daily range): BP systolic 128–143; BP diastolic 57–79; PULSE 72–119; RESP 16–28; TEMP 36–36.6; O2SAT 92–98
--- NOTE | 2024-08-05 | ECG_ITS ---
Test Reason : Tachycardia Blood Pressure : */* mmHG Vent. Rate : 103 BPM Atrial Rate : 103 BPM P-R Int : 136 ms QRS Dur : 86 ms QT Int : 310 ms P-R-T Axes : 63 65 69 degrees QTcB Int : 406 ms Sinus tachycardia Nonspecific T wave abnormality Abnormal ECG When compared with ECG of 03-Aug-2024 01:27, No significant change was found Referred By: Maye Harrison Electronically Signed By: ANGEL HARRISON
[2024-08-05] MEDS: Butalb/Acetamin/Caff 50/325/40 TABLET 1 TAB PO (00:20)
[2024-08-05] MEDS: Albuterol/Iprat 2.5/0.5MG 3 ML AMPUL.NEB INHALE ×5 (02:22→20:41)
--- NOTE | 2024-08-05 04:44 | PC.NURSE ---
Patient noted to be on tele-monitoring, previously was S at 2000 and 000, now by 0400 cardiac rhythm at R, as per C CARRIAGE OPERATOR, HR 82, Bipap in use, Resp tx's, resting well.
[2024-08-05] MEDS: Gabapentin 400 MG CAPSULE 1200 MG PO ×3 (05:55→20:49)
[2024-08-05] MEDS: cefTRIAXone sodium 1 GM VIAL IVPUSH (05:55)
[2024-08-05] MEDS: DULoxetine HCl 60 MG CAPSULE.DR PO ×2 (05:56→20:52)
[2024-08-05] MEDS: Calcium Oyster Shell Elemental 500 MG TABLET PO (05:56)
[2024-08-05] MEDS: OXcarbazepine 300 MG TABLET 600 MG PO ×2 (05:56→20:52)
[2024-08-05] MEDS: VerapamiL HCL 120 MG TABLET PO ×2 (05:56→20:51)
[2024-08-05] MEDS: Baclofen 10 MG TABLET 15 MG PO ×3 (05:57→20:59)
[2024-08-05] MEDS: HYDROcodone Bit/Acetam 5/325 TABLET 1 TAB PO (09:09)
[2024-08-05] MEDS: predniSONE 20 MG TABLET 40 MG PO (09:10)
[2024-08-05] MEDS: 0.9 % Sodium Chloride Flush 3 ML SYRINGE IVFLUSH ×3 (09:11→20:56)
[2024-08-05] MEDS: Azithromycin 500 MG in 0.9 % Sodium Chloride 250 ML 125 MG IV (09:12)
[2024-08-05] MEDS: LORazepam 0.5 MG TABLET PO ×2 (09:29→11:05)
--- NOTE | 2024-08-05 09:41 | PC.NURSE ---
Pt with audible wheezes, RR 30, Sats 87% on 3L. HR 140's. Respiratory called for breathing treatment. O2 increased to 5L. 89% on 5L. Respiratory in to give nebulizer. Ativan prn given. Dr. Harrison in to assess pt. O2 sat 93% on 2.5L. HR 116. Breathing normal.
[2024-08-05 10:03] LABS: Venous Blood Gas Refer to POC result
[2024-08-05 10:04] LABS: VBG Base Excess 2.7 mmol/L; VBG HCO3 27 mmol/L (22-26); VBG pCO2 42 mmHg; VBG pH 7.41 (7.32-7.43); VBG pO2 101 mmHg
[2024-08-05 10:20] LABS: Troponin-I High Sensitivity 9.7 ng/L (<3.5-17.0)
--- NOTE | 2024-08-05 12:06 | P.CONCA_ITS ---
History of Present Illness History of Present Illness Date of Service: 08/05/24 Chief complaint: Dyspnea Narrative: Son cardiology consultation regarding chest pain. Patient has generally seen by Dr. Thurman. Last seen about a month ago. According to that, history of chronic respiratory failure secondary to severe COPD and uses oxygen. She has got mild aortic stenosis. Hypertension. She was on low-dose Lasix but states that she has not been taking swelling. Currently, she is admitted for shortness of breath thought to be from COPD exacerbation. In this context, she has been mentioning chest pain and hence we are asked to see. When I questioned her, she states that she has discomfort in the left side but each time she takes a breath it gets worse. If she breathes gently, it is much better. Also when I touch her left chest, it is tender. Overall, seems to be rather pleuritic/musculoskeletal and less likely to be anginal per her description. Any case, we were asked to assess her. Currently, she is able to have a conversation with me and describes the above symptoms. Shortness of breath is still present. Overall diagnosed at this admission is acute on chronic hypoxemic respiratory failure from COPD exacerbation/pneumonia. Appropriately treated for the same. Review of Systems 2 Review of Systems: Yes all other systems are reviewed and are negative Constitutional: Constitutional: Reports as per HPI and Reports no additional constitutional complaints Eyes: Eyes: Reports as per HPI and Denies no additional eye complaints ENT: Denies system reviewed and no additional complaints, except as documented and Reports as per HPI Cardiovascular: Cardiovascular: Reports as per HPI, Reports no additional cardiovascular complaints, Denies acrocyanosis, Denies cool extremities, Reports chest pain, Denies leg edema, Reports lightheadedness, Denies palpitations and Denies dyspnea Respiratory: Respiratory: Reports as per HPI, Denies no additional respiratory complaints and Denies dyspnea Gastrointestinal: Gastrointestinal: Reports as per HPI and Denies no additional gastrointestinal complaints Genitourinary: Genitourinary: Reports as per HPI Musculoskeletal: Musculoskeletal: Reports no additional musculoskeletal complaints and Reports as per HPI Integumentary/Breasts: Skin/Breast: Reports system reviewed and no additional complaints, except as docu Neurologic: Reports system reviewed and no additional complaints, except as documented and Reports as per HPI Psychiatric: Psychiatric: Reports no additional psychiatric complaints and Reports as per HPI Endocrine: Endocrine: Reports no additional endocrine complaints, Reports as per HPI and Denies palpitations Hematologic/Lymphatic: Hematologic/Lymphatic: Reports no additional hematologic/lymphatic complaints and Reports as per HPI Allergic/Immunologic: Allergic/Immunologic: Reports no additional allergic/immunologic complaints and Reports as per HPI [facility] Past Medical History Medical History Hypertension Chronic hypercapnic respiratory failure Aortic stenosis Obesity (BMI 30-39.9) Asthma Acute exacerbation of chronic obstructive pulmonary disease Chronic lung disease Hypogammaglobulinemia Smoker JUANITO (obstructive sleep apnea) Allergies Elevated troponin COPD (chronic obstructive pulmonary disease) Trigeminal neuralgia Pulmonary nodules Mixed hyperlipidemia Peripheral neuropathy Tobacco use disorder Mood disorder Family History Pertinent family history: No pertinent family history Surgical History Surgical History History of esophagogastroduodenoscopy (EGD) History of colonoscopy History of lumbar discectomy History of tubal ligation History of excision of mass History of shoulder surgery Social History Social History Household Members: Spouse Housing: House Do you presently have visiting nurse or other home services: No Alcohol intake: never Comment: patient declines all hfr protocol, including bed alarm Patient Tobacco Use Status: Former Tobacco user Tobacco use type: Cigarette Cigarette Packs Per Day: 4 Cigarettes Per Day: 80.0 Years Smoked: 40 Smoked in Last 30 Days: No e-Cigarette/Vaping Use: Former Use Patient Interested in Nicotine Replacement: No Patient Given Instructions on How to Stop Smoking: No Second Hand Smoke Exposure: No Use of substances other than those prescribed or required for medical reasons: No Substance Use Type: Marijuana Substance Use Frequency: Daily Last Used Substance: Days (ago) Currently Displaying Signs/Symptoms of Drug Intoxication Withdrawal: No Other Past Substance Use Problem:: patient states she uses CBD and THC edibles at bedtime Any prior treatment program specific to substance use: No Have you been hit, kicked, punched, or otherwise hurt by someone within the past year? If so, by whom?: No Do you feel safe in your current relationship?: Yes Is there a partner from a previous relationship who is making you feel unsafe now?: No Are you made to feel afraid or neglected: No Advance Directives: No Advance Directives Information Provided: Yes Advance Directives Date on File: 03/09/23 Do you have a plan to hurt others: No Plan Recently lost weight without trying: No How much weight loss: Not applicable Eating poorly because of decreased appetite: No Nutrition screen score: 0 Nutrition Risks: No Nutritional Risk Patient : No : No Poor oral hygiene: No service: No Meds Allergies Allergy/AdvReac Type Severity Reaction Status Date / Time Iodinated Contrast Media Allergy Intermediate HIVES Verified 08/03/24 01:25 [IV CONTRAST] latex [LATEX] Allergy Unknown RASH Verified 08/03/24 01:25 adhesive tape Allergy Rash Verified 08/03/24 01:25 morphine [MORPHINE] AdvReac Unknown VOMITING Verified 08/03/24 01:25 Active Medications: Current Medications Acetaminophen (Acetaminophen 325 Mg Tablet) 650 mg PO Q6H [facility] Last Admin: 08/05/24 11:02 Dose: Not Given Acetaminophen/Butalbital/Caffeine (Butalb/Acetamin/Caff 50/325/40 Tablet) 1 tab PO DAILY MRX1 PRN PRN Reason: Headache Last Admin: 08/05/24 00:20 Dose: 1 tab Hydrocodone Bitart/Acetaminophen (Hydrocodone Bit/Acetam 5/325 Tablet) 1 tab PO DAILY [facility] Last Admin: 08/05/24 09:09 Dose: 1 tab Albuterol/Ipratropium (Albuterol/Iprat 2.5/0.5mg 3 Ml Ampul.Neb) 3 ml INHALE Q4H PRN PRN Reason: Wheezing Last Admin: 08/05/24 02:22 Dose: 3 ml Albuterol/Ipratropium (Albuterol/Iprat 2.5/0.5mg 3 Ml Ampul.Neb) 3 ml INHALE RQ4H WHILE AWAKE [facility] Last Admin: 08/05/24 11:30 Dose: Not Given Aspirin (Aspirin Enteric Coated 81 Mg Tablet.) 81 mg PO DAILY@1999 [facility] Last Admin: 08/04/24 19:52 Dose: 81 mg Atorvastatin Calcium (Atorvastatin Calcium 80 Mg Tablet) 80 mg PO DAILY@1999 [facility] Last Admin: 08/04/24 19:52 Dose: 80 mg Baclofen (Baclofen 10 Mg Tablet) 15 mg PO DAILY@0500,1200,1999 [facility] Last Admin: 08/05/24 05:57 Dose: 15 mg Calcium Carbonate (Calcium Carbonate 750 Mg Tab.Chew) 750 mg PO Q4H PRN PRN Reason: Heartburn Calcium Carbonate (Calcium Oyster Shell Elemental 500 Mg Tablet) 500 mg PO DAILY@499 [facility] Last Admin: 08/05/24 05:56 Dose: 500 mg Ceftriaxone Sodium (Ceftriaxone Sodium 1 Gm Vial) 1 gm IVPUSH Q24H [facility] Last Admin: 08/05/24 05:55 Dose: 1 gm Duloxetine HCl (Duloxetine Hcl 60 Mg Capsule.Dr) 60 mg PO BID@ [facility] Last Admin: 08/05/24 05:56 Dose: 60 mg Gabapentin (Gabapentin 400 Mg Capsule) 1,200 mg PO TID@499,1199,1999 [facility] Last Admin: 08/05/24 05:55 Dose: 1,200 mg Guaifenesin (Guaifenesin 100 Mg/5 Ml 5 Ml Liquid) 5 ml PO Q4H PRN PRN Reason: Cough Last Admin: 08/04/24 19:50 Dose: 5 ml Azithromycin 500 mg/ Sodium (Chloride) 250 mls @ 125 mls/hr IV Q24H [facility] Last Infusion: 08/05/24 11:42 Dose: Infused Lorazepam (Lorazepam 0.5 Mg Tablet) 0.5 mg PO DAILY PRN PRN Reason: Moderate Anxiety Last Admin: 08/05/24 09:29 Dose: 0.5 mg Lorazepam (Lorazepam 1 Mg Tablet) 1 mg PO DAILY PRN PRN Reason: Severe Anxiety Last Admin: 08/03/24 21:36 Dose: 1 mg Magnesium Hydroxide (Milk Of Magnesia 30 Ml Oral.Susp) 30 ml PO DAILY PRN PRN Reason: Constipation Melatonin (Melatonin 3 Mg Tablet) 6 mg PO BEDTIME PRN PRN Reason: Insomnia Ondansetron HCl (Ondansetron Hcl 4 Mg/2 Ml Vial) 4 mg IVPUSH Q8H PRN PRN Reason: Nausea and Vomiting Oxcarbazepine (Oxcarbazepine 300 Mg Tablet) 600 mg PO BID@ [facility] Last Admin: 08/05/24 05:56 Dose: 600 mg Prazosin HCl (Prazosin Hcl 1 Mg Capsule) 2 mg PO DAILY@1999 [facility]; Protocol Last Admin: 08/04/24 19:54 Dose: 2 mg Prednisone (Prednisone 20 Mg Tablet) 40 mg PO DAILY [facility] Last Admin: 08/05/24 09:10 Dose: 40 mg Sodium Chloride (0.9 % Sodium Chloride Flush 3 Ml Syringe) 3 ml IVFLUSH QSHIFT [facility] Last Admin: 08/05/24 09:11 Dose: 3 ml Verapamil HCl (Verapamil Hcl 120 Mg Tablet) 120 mg PO BID@050,1999 [facility]; Protocol Last Admin: 08/05/24 05:56 Dose: 120 mg Home Medications ?Medication ?Instructions ?Recorded ?Confirmed ?Last Taken ?Type atorvastatin 80 mg tablet 80 mg PO DAILY@199903/04/23 08/03/24 08/02/24 History [id number] 1 tab PO DAILY MRX1 PRN Headache 03/04/23 08/03/24 05/21/24 20:00 History 50 mg-325 mg-40 mg tablet duloxetine 60 mg capsule,delayed 60 mg PO BID@050,199903/04/23 08/03/24 08/02/24 History release gabapentin 300 mg capsule 1,200 mg PO TID@050,1199,199903/04/23 08/03/24 08/02/24 History hyoscyamine sulfate 0.125 mg tablet 0.25 mg PO Q6H PRN Abdominal 03/04/23 08/03/24 05/21/24 20:00 History Discomfort lorazepam 1 mg tablet 1 mg PO DAILY PRN SEVERE Anxiety 03/04/23 08/03/24 3 Days Ago History ~07/31/24 oxcarbazepine 600 mg tablet 600 mg PO BID@0500,199903/04/23 08/03/24 08/02/24 History Oxygen Home Use 04/16/23 03/10/24 03/10/24 History prazosin 2 mg capsule 2 mg PO DAILY@199904/16/23 08/03/24 08/02/24 History albuterol sulfate 90 mcg/actuation 2 puff inhalation Q4H PRN 01/31/24 08/03/24 05/21/24 20:00 History aerosol inhaler Shortness Of Breath Or Wheezing aspirin 81 mg tablet,delayed 81 mg PO DAILY@199905/22/24 08/03/24 08/02/24 History release calcium 600 mg (as 1 tab PO DAILY@0500 06/20/24 08/03/24 08/02/24 History carbonate)-vitamin D3 5 mcg (200 unit) tablet baclofen 10 mg tablet 15 mg PO DAILY@0500,1200,199907/02/24 08/03/24 08/02/24 History hydrocodone 5 mg-acetaminophen 325 1 tab PO DAILY 07/02/24 08/03/24 08/02/24 History mg tablet verapamil 120 mg tablet 120 mg PO BID@050,199907/02/24 08/03/24 08/02/24 History lorazepam 0.5 mg tablet 0.5 mg PO DAILY PRN MODERATE 08/03/24 08/03/24 Unknown History Anxiety Physical Exam 2 Vital Signs: Vital Signs: Last Vital Signs Temp 97.2 F 08/05/24 07:19 Pulse 116 H 08/05/24 09:40 Resp 22 H 08/05/24 09:40 BP 141/79 H 08/05/24 07:19 Pulse Ox 93 08/05/24 09:40 O2 Del Method Nasal Cannula 08/05/24 09:40 O2 Flow Rate 2.5 08/05/24 09:40 FiO2 50 08/03/24 01:18 BMI result Body Mass Index 37.0 Const: General: comfortable and no acute distress O rientation/consciousness: patient oriented x3 HEENT: Other: Unremarkable Head: Yes normal to inspection Neck: Neck: Yes normal visual inspection Chest: Chest palpation & inspection: normal inspection of the chest Resp: Auscultation: rhonchi and diminished lung sounds Cardio: Palpation: normal PMI Heart sounds: S1 normal heart sound present, S2 normal heart sound present, no gallops, Murmur heart sound present systolic II/ and no rubs GI: Palpation (GI): Soft to palpation Back/Spine/Pelvis: Other: unremarkable Skin: General skin exam: no rashes or lesions noted Neuro: General: patient oriented x3 Extrem: General: Yes normal to inspection Psych: Mental Status: mental status grossly normal Objective Labs and Meds 08/04/24 04:23 08/04/24 04:23 Lab results: Laboratory Results - last 24 hr 08/05/24 08/05/24 09:52 09:57 VBG pH 7.41 VBG pCO2 42 VBG pO2 101 VBG HCO3 27 H VBG O2 Saturation 100.0 VBG Base Excess 2.7 Troponin I High Sens 9.7 D ECG Interpretation: EKG with underlying sinus tachycardia at 01:03/Min; inferior as well as anterolateral nonspecific ST-T changes. Assessment and Plan (1) Precordial chest pain: Status: Acute (2) Acute exacerbation of chronic obstructive pulmonary disease: Status: Acute Plan EKGs suggestive of nonspecific ST-T changes. Doubt any clear ischemia. High sensitivity troponin levels are 12.2 followed by 36.2 followed by 9.7. 9.7 is from this morning when she was complaining of chest pain. Echocardiogram from 2023 with hyperdynamic LVEF; no regional wall motion abnormality and mild aortic stenosis. Pharmacological perfusion imaging from 2023 with no ischemia. Distal anterior fixed defect thought to be from soft tissue attenuation and less likely from infarct. Overall, acute exacerbation of COPD, respiratory failure, pleuritic type chest pain and very slight elevation of high sensitivity troponin most likely from demand. Also, it has returned back to normal. At this time, continued treat her COPD. With appropriate treatment of this, the pleuritic pain should improve. We will follow with you as needed. Discussed with Dr. Harrison. Procedures Date of Service Date of Service: 08/05/24
--- NOTE | 2024-08-05 16:11 | P.PNIM_ITS ---
Subjective Subjective Date of Service: 08/05/24 Interval History: copd excerebation Review of Systems sob seems similar has some wheezing/cough anxiety might also constibuting to above. Physical Exam 2 Vital Signs: Vital Signs: Last Vital Signs Temp 97.9 F 08/05/24 15:27 Pulse 106 H 08/05/24 15:27 Resp 20 08/05/24 15:34 BP 128/67 08/05/24 15:27 Pulse Ox 94 08/05/24 15:27 O2 Del Method Nasal Cannula 08/05/24 15:27 O2 Flow Rate 2 08/05/24 15:27 FiO2 50 08/03/24 01:18 BMI result Body Mass Index 37.0 Appearance: Alert.? Oriented X3.? sob. cvs: rrr, [id number] . res: air entry diminshed ,has few rhonchii abd: no rebound or guarding ,nt, bs present. ext pulses present , no cyanosis neuro: axo3 , nonfocal. Objective Data Active Medications Acetaminophen (Acetaminophen 325 Mg Tablet) 650 mg PO Q6H [facility] Last Admin: 08/05/24 11:02 Dose: Not Given Documented By: PORTER Non-Admin Reason: Patient Refused Acetaminophen/Butalbital/Caffeine (Butalb/Acetamin/Caff 50/325/40 Tablet) 1 tab PO DAILY MRX1 PRN PRN Reason: Headache Last Admin: 08/05/24 00:20 Dose: 1 tab Documented By: DESTINEE Hydrocodone Bitart/Acetaminophen (Hydrocodone Bit/Acetam 5/325 Tablet) 1 tab PO DAILY [facility] Last Admin: 08/05/24 09:09 Dose: 1 tab Documented By: PORTER Albuterol/Ipratropium (Albuterol/Iprat 2.5/0.5mg 3 Ml Ampul.Neb) 3 ml INHALE Q4H PRN PRN Reason: Wheezing Last Admin: 08/05/24 02:22 Dose: 3 ml Documented By: MARKO Albuterol/Ipratropium (Albuterol/Iprat 2.5/0.5mg 3 Ml Ampul.Neb) 3 ml INHALE RQ4H WHILE AWAKE [facility] Last Admin: 08/05/24 15:33 Dose: 3 ml Documented By: FABI Aspirin (Aspirin Enteric Coated 81 Mg Tablet.) 81 mg PO DAILY@1999 [facility] Last Admin: 08/04/24 19:52 Dose: 81 mg Documented By: DESTINEE Atorvastatin Calcium (Atorvastatin Calcium 80 Mg Tablet) 80 mg PO DAILY@1999 [facility] Last Admin: 08/04/24 19:52 Dose: 80 mg Documented By: DESTINEE Baclofen (Baclofen 10 Mg Tablet) 15 mg PO DAILY@499,1199,1999 [facility] Last Admin: 08/05/24 12:42 Dose: 15 mg Documented By: PORTER Calcium Carbonate (Calcium Carbonate 750 Mg Tab.Chew) 750 mg PO Q4H PRN PRN Reason: Heartburn Calcium Carbonate (Calcium Oyster Shell Elemental 500 Mg Tablet) 500 mg PO DAILY@499 [facility] Last Admin: 08/05/24 05:56 Dose: 500 mg Documented By: DESTINEE Ceftriaxone Sodium (Ceftriaxone Sodium 1 Gm Vial) 1 gm IVPUSH Q24H [facility] Last Admin: 08/05/24 05:55 Dose: 1 gm Documented By: DESTINEE Duloxetine HCl (Duloxetine Hcl 60 Mg Capsule.) 60 mg PO BID@ [facility] Last Admin: 08/05/24 05:56 Dose: 60 mg Documented By: DESTINEE Gabapentin (Gabapentin 400 Mg Capsule) 1,200 mg PO TID@499, [facility] Last Admin: 08/05/24 12:42 Dose: 1,200 mg Documented By: PORTER Guaifenesin (Guaifenesin 100 Mg/5 Ml 5 Ml Liquid) 5 ml PO Q4H PRN PRN Reason: Cough Last Admin: 08/04/24 19:50 Dose: 5 ml Documented By: DESTINEE Azithromycin 500 mg/ Sodium (Chloride) 250 mls @ 125 mls/hr IV Q24H [facility] Last Infusion: 08/05/24 11:42 Dose: Infused Documented By: PORTER Lorazepam (Lorazepam 0.5 Mg Tablet) 0.5 mg PO DAILY PRN PRN Reason: Moderate Anxiety Last Admin: 08/05/24 09:29 Dose: 0.5 mg Documented By: PORTER Lorazepam (Lorazepam 1 Mg Tablet) 1 mg PO DAILY PRN PRN Reason: Severe Anxiety Last Admin: 08/03/24 21:36 Dose: 1 mg Documented By: SATHYA Magnesium Hydroxide (Milk Of Magnesia 30 Ml Oral.Susp) 30 ml PO DAILY PRN PRN Reason: Constipation Melatonin (Melatonin 3 Mg Tablet) 6 mg PO BEDTIME PRN PRN Reason: Insomnia Ondansetron HCl (Ondansetron Hcl 4 Mg/2 Ml Vial) 4 mg IVPUSH Q8H PRN PRN Reason: Nausea and Vomiting Oxcarbazepine (Oxcarbazepine 300 Mg Tablet) 600 mg PO BID@ [facility] Last Admin: 08/05/24 05:56 Dose: 600 mg Documented By: DESTINEE Prazosin HCl (Prazosin Hcl 1 Mg Capsule) 2 mg PO DAILY@1999 [facility]; Protocol Last Admin: 08/04/24 19:54 Dose: 2 mg Documented By: DESTINEE Prednisone (Prednisone 10 Mg Tablet) 30 mg PO DAILY [facility] Sodium Chloride (0.9 % Sodium Chloride Flush 3 Ml Syringe) [facility] Last Admin: 08/05/24 15:53 Dose: 3 ml Documented By: PORTER Verapamil HCl (Verapamil Hcl 120 Mg Tablet) 120 mg PO BID@ [facility]; Protocol Last Admin: 08/05/24 05:56 Dose: 120 mg Documented By: DESTINEE Labs 08/04/24 04:23 08/04/24 04:23 Labs: Laboratory Results - last 24 hr 08/05/24 09:57 VBG pH 7.41 VBG pCO2 42 VBG pO2 101 VBG HCO3 27 H VBG O2 Saturation 100.0 VBG Base Excess 2.7 Microbiology Microbiology Results: Microbiology 08/03/24 01:41 Blood Culture - Preliminary Blood - Venous No growth after 48 hours. 08/03/24 01:41 Blood Culture - Preliminary Blood - Venous No growth after 48 hours. Assessment and Plan (1) Precordial chest pain: Status: Acute (2) Hypoxia: Status: Acute Assessment and Plan: 59-year-old female with pertinent history of chronic hypoxemic respiratory failure due to COPD on 2-3 L supplemental oxygen at baseline, hypertension, mixed hyperlipidemia, history of CVA, trigeminal neuralgia, mood disorder, lower extremity edema who presents to the emergency department for evaluation of dyspnea. Acute on chronic hypoxic respiratory failure due to Acute exacerbation of COPD and right-sided pneumonia: no fevers ,blood cultures neg@24hrs sob with minimal excersion Continue scheduled and p.r.n. DuoNebs,switch to po steriods(might be contributing anxiety), iv antibiotics,Wean back to home oxygen. chest tight seems atypical-trop neg,ekg-not much st changes cardiology eval noted-atypical pain ,trop and ekg as above. no intervention,continue to treat respiratory symptoms. History of CVA/mixed hyperlipidemia: On aspirin and statin Hypertension: On Cardizem Trigeminal neuralgia: On baclofen,trileptal, Neurontin and Cymbalta. Mood disorder: given additional ativanx1 , also added trazdone for sleep at bedtime. Continue home mood stabilizers. psych eval added -anxiety might also contibuting for hyperventilation. Morbid obesity: Counseled regarding diet and exercise Lower extremity edema: On Lasix. JUANITO: Noncompliant with NIV at home ongoing need for hospital stay for supplemental oxygen, IV antibiotics (as above), which is not possible in a lesser acute setting. Quality Stroke Does the patient have a stroke diagnosis?: No VTE Prior VTE?: No VTE Risk Level:: Medical - moderate - high VTE Device Contraindication: Treatment Not Indicated VTE Drug Contraindication: N/A - Med Ordered
[2024-08-05] MEDS: Acetaminophen 325 MG TABLET 650 MG PO ×2 (16:56→22:20)
--- NOTE | 2024-08-05 17:58 | PM.PSYCN ---
History of Present Illness Date of Service: 08/05/24 Chief Complaint: Dyspnea Reason for Consult: anxiety Requesting physician: Maye Harrison Discussed with referring provider: Yes Sources of Information: patient interviewed, chart reviewed and crisis/core team assessment reviewed HPI Narrative: 59-year-old female with pertinent history of chronic hypoxemic respiratory failure due to COPD on 2-3 L supplemental oxygen at baseline, hypertension, mixed hyperlipidemia, history of CVA, trigeminal neuralgia, mood disorder, lower extremity edema who presents to the emergency department for evaluation of dyspnea. Psychiatry consult place since patient can become panicked, have crying fits that caused a hyperventilate and impede breathing process. Patient reports that her trigeminal neuralgia is intermittently extremely painful, about once a month it is excruciating. Thus, she has daily anxiety, waiting for the painful episode to occur. Patient reports that crying fits help her get through the pain however they can become so bad that she ends up having trouble breathing and comes to the hospital. However she feels that if Ativan 0.5 mg was available more readily, it could be used to lessen the intensity of the crying fit. Also discussed clonidine as an option, reviewing risks/side effects, which patient is willing to try. Past Psychiatric History: Anxiety Medical Evaluation Reviewed: Yes [facility] Medical History (Updated 08/05/24 @ 18:25 by Doroteo Montana MD) Panic disorder Hypertension Chronic hypercapnic respiratory failure Aortic stenosis Obesity (BMI 30-39.9) Asthma Acute exacerbation of chronic obstructive pulmonary disease Chronic lung disease Hypogammaglobulinemia Smoker JUANITO (obstructive sleep apnea) Allergies Elevated troponin COPD (chronic obstructive pulmonary disease) Trigeminal neuralgia Pulmonary nodules Mixed hyperlipidemia Peripheral neuropathy Tobacco use disorder Mood disorder Surgical History History of esophagogastroduodenoscopy (EGD) History of colonoscopy History of lumbar discectomy History of tubal ligation History of excision of mass History of shoulder surgery Diagnostics Vital Signs (24Hr): Vital Signs - 24 hr 08/04/24 19:53 08/04/24 20:04 08/04/24 20:11 Temperature 97.4 F Pulse Rate 82 128 H Respiratory Rate 18 30 H 16 Blood Pressure 132/65 Pulse Oximetry 98 Oxygen Delivery Method Nasal Cannula Oxygen Flow Rate 2 08/04/24 23:43 08/04/24 23:47 08/05/24 01:20 Temperature 96.8 F 96.8 F Pulse Rate 100 99 Respiratory Rate 18 18 18 Blood Pressure 159/72 H 159/72 H Pulse Oximetry 97 97 Oxygen Delivery Method BiPAP BiPAP Oxygen Flow Rate 08/05/24 02:22 08/05/24 02:26 08/05/24 04:00 Temperature 96.8 F Pulse Rate 106 H 72 Respiratory Rate 28 H 28 H 18 Blood Pressure 141/74 H Pulse Oximetry 97 Oxygen Delivery Method BiPAP Oxygen Flow Rate 08/05/24 07:19 08/05/24 09:30 08/05/24 09:40 Temperature 97.2 F Pulse Rate 88 119 H 116 H Respiratory Rate 18 24 H 22 H Blood Pressure 141/79 H Pulse Oximetry 96 93 Oxygen Delivery Method Nasal Cannula Nasal Cannula Oxygen Flow Rate 2 2.5 08/05/24 13:15 08/05/24 15:27 08/05/24 15:34 Temperature 97.9 F Pulse Rate 97 106 H Respiratory Rate 20 18 20 Blood Pressure 128/67 Pulse Oximetry 94 Oxygen Delivery Method Nasal Cannula Oxygen Flow Rate 2 BMI result Body Mass Index 37.0 Labs 08/04/24 04:23 08/04/24 04:23 Labs: Laboratory Results - last 48 hr 08/04/24 08/05/24 08/05/24 04:23 09:52 09:57 WBC 8.1 RBC 4.00 L Hgb 12.7 Hct 38.0 MCV 95.0 MCH 31.8 MCHC 33.4 RDW 13.3 Plt Count 300 MPV 8.9 L Immature Gran % (Auto) 0.2 Neut % (Auto) 64.7 Lymph % (Auto) 21.0 [place] % (Auto) 12.3 H Eos % (Auto) 1.4 Baso % (Auto) 0.4 Lymph # (Auto) 1.7 [place] # (Auto) 1.0 Eos # (Auto) 0.1 Baso # (Auto) 0.0 Abs Immat Gran (auto) 0.02 Absolute Neuts (auto) 5.2 Absolute Nucleated RBC 0.000 Nucleated RBC % (auto) 0.0 VBG pH 7.41 VBG pCO2 42 VBG pO2 101 VBG HCO3 27 H VBG O2 Saturation 100.0 VBG Base Excess 2.7 Sodium 141 Potassium 3.8 Chloride 106 Carbon Dioxide 26 Anion Gap 13 BUN 12 Creatinine 0.64 Estim Creat Clear Calc 93.6 Estimated GFR > 60 Random Glucose 123 H Calcium 9.4 D Troponin I High Sens 9.7 D Medications Medications Current Medications Acetaminophen (Acetaminophen 325 Mg Tablet) 650 mg PO Q6H [facility] Last Admin: 08/05/24 16:56 Dose: 650 mg Acetaminophen/Butalbital/Caffeine (Butalb/Acetamin/Caff 50/325/40 Tablet) 1 tab PO DAILY MRX1 PRN PRN Reason: Headache Last Admin: 08/05/24 00:20 Dose: 1 tab Hydrocodone Bitart/Acetaminophen (Hydrocodone Bit/Acetam 5/325 Tablet) 1 tab PO DAILY [facility] Last Admin: 08/05/24 09:09 Dose: 1 tab Albuterol/Ipratropium (Albuterol/Iprat 2.5/0.5mg 3 Ml Ampul.Neb) 3 ml INHALE Q4H PRN PRN Reason: Wheezing Last Admin: 08/05/24 02:22 Dose: 3 ml Albuterol/Ipratropium (Albuterol/Iprat 2.5/0.5mg 3 Ml Ampul.Neb) 3 ml INHALE RQ4H WHILE AWAKE [facility] Last Admin: 08/05/24 15:33 Dose: 3 ml Aspirin (Aspirin Enteric Coated 81 Mg Tablet.) 81 mg PO DAILY@1999 [facility] Last Admin: 08/04/24 19:52 Dose: 81 mg Atorvastatin Calcium (Atorvastatin Calcium 80 Mg Tablet) 80 mg PO DAILY@1999 [facility] Last Admin: 08/04/24 19:52 Dose: 80 mg Baclofen (Baclofen 10 Mg Tablet) 15 mg PO DAILY@499,1199,1999 [facility] Last Admin: 08/05/24 12:42 Dose: 15 mg Calcium Carbonate (Calcium Carbonate 750 Mg Tab.Chew) 750 mg PO Q4H PRN PRN Reason: Heartburn Calcium Carbonate (Calcium Oyster Shell Elemental 500 Mg Tablet) 500 mg PO DAILY@499 [facility] Last Admin: 08/05/24 05:56 Dose: 500 mg Ceftriaxone Sodium (Ceftriaxone Sodium 1 Gm Vial) 1 gm IVPUSH Q24H [facility] Last Admin: 08/05/24 05:55 Dose: 1 gm Duloxetine HCl (Duloxetine Hcl 60 Mg Capsule.) 60 mg PO BID@ [facility] Last Admin: 08/05/24 05:56 Dose: 60 mg Gabapentin (Gabapentin 400 Mg Capsule) 1,200 mg PO TID@050,1199,1999 [facility] Last Admin: 08/05/24 12:42 Dose: 1,200 mg Guaifenesin (Guaifenesin 100 Mg/5 Ml 5 Ml Liquid) 5 ml PO Q4H PRN PRN Reason: Cough Last Admin: 08/04/24 19:50 Dose: 5 ml Azithromycin 500 mg/ Sodium (Chloride) 250 mls @ 125 mls/hr IV Q24H [facility] Last Infusion: 08/05/24 11:42 Dose: Infused Lorazepam (Lorazepam 0.5 Mg Tablet) 0.5 mg PO DAILY PRN PRN Reason: Moderate Anxiety Last Admin: 08/05/24 09:29 Dose: 0.5 mg Lorazepam (Lorazepam 1 Mg Tablet) 1 mg PO DAILY PRN PRN Reason: Severe Anxiety Last Admin: 08/03/24 21:36 Dose: 1 mg Magnesium Hydroxide (Milk Of Magnesia 30 Ml Oral.Susp) 30 ml PO DAILY PRN PRN Reason: Constipation Melatonin (Melatonin 3 Mg Tablet) 6 mg PO BEDTIME PRN PRN Reason: Insomnia Ondansetron HCl (Ondansetron Hcl 4 Mg/2 Ml Vial) 4 mg IVPUSH Q8H PRN PRN Reason: Nausea and Vomiting Oxcarbazepine (Oxcarbazepine 300 Mg Tablet) 600 mg PO BID@ [facility] Last Admin: 08/05/24 05:56 Dose: 600 mg Prazosin HCl (Prazosin Hcl 1 Mg Capsule) 2 mg PO DAILY@1999 [facility]; Protocol Last Admin: 08/04/24 19:54 Dose: 2 mg Prednisone (Prednisone 10 Mg Tablet) 30 mg PO DAILY [facility] Sodium Chloride (0.9 % Sodium Chloride Flush 3 Ml Syringe) [facility] Admin: 08/05/24 15:53 Dose: 3 ml Trazodone HCl (Trazodone Hcl 25 Mg Halftab) 25 mg PO BEDTIME PRN PRN Reason: Sleep Verapamil HCl (Verapamil Hcl 120 Mg Tablet) 120 mg PO BID@ [facility]; Protocol Last Admin: 08/05/24 05:56 Dose: 120 mg Allergies Allergies Allergy/AdvReac Type Severity Reaction Status Date / Time Iodinated Contrast Media Allergy Intermediate HIVES Verified 08/03/24 01:25 [IV CONTRAST] latex [LATEX] Allergy Unknown RASH Verified 08/03/24 01:25 adhesive tape Allergy Rash Verified 08/03/24 01:25 morphine [MORPHINE] AdvReac Unknown VOMITING Verified 08/03/24 01:25 Assessment & Plan Assessment & Plan (1) Panic disorder: Status: Acute Code(s): F41.0 - Panic disorder [episodic paroxysmal anxiety] (2) Trigeminal neuralgia: Status: Acute Code(s): G50.0 - Trigeminal neuralgia Plan 59-year-old female with pertinent history of chronic hypoxemic respiratory failure due to COPD on 2-3 L supplemental oxygen at baseline, hypertension, mixed hyperlipidemia, history of CVA, trigeminal neuralgia, mood disorder, lower extremity edema who presents to the emergency department for evaluation of dyspnea. Psychiatry consult place since patient can become panicked, have crying fits that caused a hyperventilate and impede breathing process. Patient reports that her trigeminal neuralgia is intermittently extremely painful, about once a month it is excruciating. Thus, she has daily anxiety, waiting for the painful episode to occur. Patient reports that crying fits help her get through the pain however they can become so bad that she ends up having trouble breathing and comes to the hospital. However she feels that if Ativan 0.5 mg was available more readily, it could be used to lessen the intensity of the crying fit. Also discussed clonidine as an option, reviewing risks/side effects, which patient is willing to try. (BP's either WNL or elevated) Recommendation: 1. Make Ativan 0.5 mg available at least b.i.d. p.r.n. to help prevent panic attacks/crying fits that become problematic and interfere with breathing 2. Will give patient clonidine 0.1 mg now to see if it can help tamped down her anxiety; if it is effective and well tolerated, recommend scheduling this b.i.d. at 9:00am and 1pm (and possibly making extra available p.r.n. as well). 3. Referral to a outpt psychiatrist to consider other medication regimen options to shrink anxiety overall Total time managing care of this patient today ____ minutes. Patient educated on: diagnosis, medication risk/benefits and medical condition Informed Consent: understands
[2024-08-05] MEDS: cloNIDine HCL 0.1 MG TABLET PO (18:52)
[2024-08-05] MEDS: Aspirin Enteric Coated 81 MG TABLET.DR PO (20:51)
[2024-08-05] MEDS: Atorvastatin Calcium 80 MG TABLET PO (20:51)
[2024-08-05] MEDS: Prazosin HCL 1 MG CAPSULE 2 MG PO (20:51)
[2024-08-05] MEDS: traZODone HCL 25 MG HALFTAB PO (22:18)
[2024-08-06] VITALS (10 sets, daily range): BP systolic 121–159; BP diastolic 62–76; PULSE 70–87; RESP 16–25; TEMP 36–36.2; O2SAT 92–98
[2024-08-06] MEDS: VerapamiL HCL 120 MG TABLET PO ×2 (04:49→20:22)
[2024-08-06] MEDS: OXcarbazepine 300 MG TABLET 600 MG PO ×2 (04:49→20:22)
[2024-08-06] MEDS: DULoxetine HCl 60 MG CAPSULE.DR PO ×2 (04:49→20:23)
[2024-08-06] MEDS: Calcium Oyster Shell Elemental 500 MG TABLET PO (04:49)
[2024-08-06] MEDS: Gabapentin 400 MG CAPSULE 1200 MG PO ×3 (04:49→20:22)
[2024-08-06] MEDS: Baclofen 10 MG TABLET 15 MG PO ×3 (04:50→20:23)
[2024-08-06] MEDS: Albuterol/Iprat 2.5/0.5MG 3 ML AMPUL.NEB INHALE ×5 (05:18→19:44)
[2024-08-06] MEDS: cefTRIAXone sodium 1 GM VIAL IVPUSH (05:35)
--- NOTE | 2024-08-06 07:54 | P.PNIM_ITS ---
Subjective Subjective Date of Service: 08/06/24 Interval History: copd/pneumonia Review of Systems sob somewhat improving has anxiety symptoms might also contributing to sob. has cough in addition -advised for complance with bipap. Physical Exam 2 Vital Signs: Vital Signs: Last Vital Signs Temp 97.1 F 08/06/24 07:38 Pulse 70 08/06/24 07:38 Resp 18 08/06/24 07:38 BP 159/74 H 08/06/24 07:38 Pulse Ox 92 08/06/24 07:38 O2 Del Method BiPAP 08/06/24 07:38 O2 Flow Rate 3 08/06/24 04:00 FiO2 50 08/03/24 01:18 Oxygen Flow Rate 2 08/05/24 18:07 BMI result Body Mass Index 37.0 Appearance: Alert.? Oriented X3.? sob. cvs: rrr, [id number] . res: air entry diminshed ,has wheezing abd: no rebound or guarding ,nt, bs present. ext pulses present , no cyanosis neuro: axo3 , nonfocal. Objective Data Active Medications Acetaminophen (Acetaminophen 325 Mg Tablet) 650 mg PO Q6H [facility] Last Admin: 08/06/24 04:11 Dose: Not Given Documented By: DESTINEE Non-Admin Reason: pt declined in advance of due Acetaminophen/Butalbital/Caffeine (Butalb/Acetamin/Caff 50/325/40 Tablet) 1 tab PO DAILY MRX1 PRN PRN Reason: Headache Last Admin: 08/05/24 00:20 Dose: 1 tab Documented By: DESTINEE Hydrocodone Bitart/Acetaminophen (Hydrocodone Bit/Acetam 5/325 Tablet) 1 tab PO DAILY [facility] Last Admin: 08/05/24 09:09 Dose: 1 tab Documented By: PORTER Albuterol/Ipratropium (Albuterol/Iprat 2.5/0.5mg 3 Ml Ampul.Neb) 3 ml INHALE Q4H PRN PRN Reason: Wheezing Last Admin: 08/05/24 02:22 Dose: 3 ml Documented By: MARKO Albuterol/Ipratropium (Albuterol/Iprat 2.5/0.5mg 3 Ml Ampul.Neb) 3 ml INHALE RQ4H WHILE AWAKE [facility] Last Admin: 08/06/24 05:18 Dose: 3 ml Documented By: TONYA Aspirin (Aspirin Enteric Coated 81 Mg Tablet.) 81 mg PO DAILY@1999 [facility] Last Admin: 08/05/24 20:51 Dose: 81 mg Documented By: DESTINEE Atorvastatin Calcium (Atorvastatin Calcium 80 Mg Tablet) 80 mg PO DAILY@1999 [facility] Last Admin: 08/05/24 20:51 Dose: 80 mg Documented By: DESTINEE Baclofen (Baclofen 10 Mg Tablet) 15 mg PO DAILY@499, [facility] Last Admin: 08/06/24 04:50 Dose: 15 mg Documented By: DESTINEE Calcium Carbonate (Calcium Carbonate 750 Mg Tab.Chew) 750 mg PO Q4H PRN PRN Reason: Heartburn Calcium Carbonate (Calcium Oyster Shell Elemental 500 Mg Tablet) 500 mg PO DAILY@499 [facility] Last Admin: 08/06/24 04:49 Dose: 500 mg Documented By: DESTINEE Ceftriaxone Sodium (Ceftriaxone Sodium 1 Gm Vial) 1 gm IVPUSH Q24H [facility] Last Admin: 08/06/24 05:35 Dose: 1 gm Documented By: DESTINEE Duloxetine HCl (Duloxetine Hcl 60 Mg Capsule.) 60 mg PO BID@ [facility] Last Admin: 08/06/24 04:49 Dose: 60 mg Documented By: DESTINEE Gabapentin (Gabapentin 400 Mg Capsule) 1,200 mg PO TID@499, [facility] Last Admin: 08/06/24 04:49 Dose: 1,200 mg Documented By: DESTINEE Guaifenesin (Guaifenesin 100 Mg/5 Ml 5 Ml Liquid) 5 ml PO Q4H PRN PRN Reason: Cough Last Admin: 08/04/24 19:50 Dose: 5 ml Documented By: DESTINEE Azithromycin 500 mg/ Sodium (Chloride) 250 mls @ 125 mls/hr IV Q24H [facility] Last Infusion: 08/05/24 11:42 Dose: Infused Documented By: PORTER Lorazepam (Lorazepam 0.5 Mg Tablet) 0.5 mg PO DAILY PRN PRN Reason: Moderate Anxiety Last Admin: 08/05/24 09:29 Dose: 0.5 mg Documented By: PORTER Lorazepam (Lorazepam 1 Mg Tablet) 1 mg PO DAILY PRN PRN Reason: Severe Anxiety Last Admin: 08/03/24 21:36 Dose: 1 mg Documented By: SATHYA Magnesium Hydroxide (Milk Of Magnesia 30 Ml Oral.Susp) 30 ml PO DAILY PRN PRN Reason: Constipation Melatonin (Melatonin 3 Mg Tablet) 6 mg PO BEDTIME PRN PRN Reason: Insomnia Ondansetron HCl (Ondansetron Hcl 4 Mg/2 Ml Vial) 4 mg IVPUSH Q8H PRN PRN Reason: Nausea and Vomiting Oxcarbazepine (Oxcarbazepine 300 Mg Tablet) 600 mg PO BID@ [facility] Last Admin: 08/06/24 04:49 Dose: 600 mg Documented By: DESTINEE Prazosin HCl (Prazosin Hcl 1 Mg Capsule) 2 mg PO DAILY@1999 [facility]; Protocol Last Admin: 08/05/24 20:51 Dose: 2 mg Documented By: DESTINEE Prednisone (Prednisone 10 Mg Tablet) 30 mg PO DAILY [facility] Sodium Chloride (0.9 % Sodium Chloride Flush 3 Ml Syringe) [facility] Last Admin: 08/05/24 20:56 Dose: 3 ml Documented By: DESTINEE Trazodone HCl (Trazodone Hcl 25 Mg Halftab) 25 mg PO BEDTIME PRN PRN Reason: Sleep Last Admin: 08/05/24 22:18 Dose: 25 mg Documented By: DESTINEE Verapamil HCl (Verapamil Hcl 120 Mg Tablet) 120 mg PO BID@ [facility]; Protocol Last Admin: 08/06/24 04:49 Dose: 120 mg Documented By: DESTINEE Labs 08/04/24 04:23 08/04/24 04:23 Labs: Laboratory Results - last 24 hr 08/05/24 09:57 VBG pH 7.41 VBG pCO2 42 VBG pO2 101 VBG HCO3 27 H VBG O2 Saturation 100.0 VBG Base Excess 2.7 Microbiology Microbiology Results: Microbiology 08/03/24 01:41 Blood Culture - Preliminary Blood - Venous No growth after 48 hours. 08/03/24 01:41 Blood Culture - Preliminary Blood - Venous No growth after 48 hours. Assessment and Plan (1) Hypoxia: Status: Acute Assessment and Plan: 59-year-old female with pertinent history of chronic hypoxemic respiratory failure due to COPD on 2-3 L supplemental oxygen at baseline, hypertension, mixed hyperlipidemia, history of CVA, trigeminal neuralgia, mood disorder, lower extremity edema who presents to the emergency department for evaluation of dyspnea. Acute on chronic hypoxic respiratory failure due to Acute exacerbation of COPD and right-sided pneumonia: no fevers ,blood cultures neg@24hrs sob with minimal excersion Continue scheduled and p.r.n. DuoNebs,switch to po steriods(might be contributing anxiety), iv antibiotics,Wean back to home oxygen. chest tight seems atypical-trop neg,ekg-not much st changes cardiology eval noted-atypical pain ,trop and ekg (yesterday). has some tightness ? anxiety related ,repeat ekg no intervention,continue to treat respiratory symptoms. History of CVA/mixed hyperlipidemia: On aspirin and statin Hypertension: On Cardizem Trigeminal neuralgia: On baclofen,trileptal, Neurontin and Cymbalta. Mood disorder: given additional ativanx1 , also added trazdone for sleep at bedtime. Continue home mood stabilizers. psych eval added -anxiety might also contibuting for hyperventilation-added clonidine ,ativan 0.5 mg po bid prn Morbid obesity: Counseled regarding diet and exercise Lower extremity edema: On Lasix. JUANITO: Noncompliant with NIV at home ongoing need for hospital stay for supplemental oxygen, IV antibiotics (as above), which is not possible in a lesser acute setting. (2) Precordial chest pain: Status: Acute Quality Stroke Does the patient have a stroke diagnosis?: No VTE Prior VTE?: No VTE Risk Level:: Medical - moderate - high VTE Device Contraindication: Treatment Not Indicated VTE Drug Contraindication: N/A - Med Ordered
[2024-08-06] MEDS: predniSONE 10 MG TABLET 30 MG PO (08:20)
[2024-08-06] MEDS: HYDROcodone Bit/Acetam 5/325 TABLET 1 TAB PO (08:20)
[2024-08-06] MEDS: Azithromycin 500 MG in 0.9 % Sodium Chloride 250 ML 125 MG IV (08:21)
[2024-08-06] MEDS: 0.9 % Sodium Chloride Flush 3 ML SYRINGE IVFLUSH ×3 (08:21→20:24)
[2024-08-06] MEDS: Acetaminophen 325 MG TABLET 650 MG PO ×3 (09:50→22:40)
[2024-08-06] MEDS: LORazepam 0.5 MG TABLET PO (09:50)
[2024-08-06] MEDS: cloNIDine HCL 0.1 MG TABLET PO ×2 (09:50→13:09)
[2024-08-06] MEDS: guaiFENesin 100 MG/5 ML 5 ML LIQUID PO (11:13)
--- NOTE | 2024-08-06 12:59 | ECG_ITS ---
Test Reason : chest tightness Blood Pressure : */* mmHG Vent. Rate : 113 BPM Atrial Rate : 113 BPM P-R Int : 140 ms QRS Dur : 84 ms QT Int : 348 ms P-R-T Axes : 27 37 40 degrees QTcB Int : 477 ms Artifact in tracing Sinus tachycardia Otherwise normal ECG When compared with ECG of 05-Aug-2024 10:08, Nonspecific ST and T wave abnormality improved Referred By: Maye Harrison Electronically Signed By: ANGEL HARRISON
[2024-08-06] MEDS: LORazepam 1 MG TABLET PO ×2 (13:09→22:43)
[2024-08-06] MEDS: Benzonatate 100 MG CAPSULE 200 MG PO (13:44)
[2024-08-06] MEDS: guaiFENesin 200 MG/10 ML 10 ML LIQUID PO (13:44)
[2024-08-06] MEDS: Aspirin Enteric Coated 81 MG TABLET.DR PO (20:23)
[2024-08-06] MEDS: Atorvastatin Calcium 80 MG TABLET PO (20:23)
[2024-08-06] MEDS: Prazosin HCL 1 MG CAPSULE 2 MG PO (20:23)
[2024-08-07] VITALS (11 sets, daily range): BP systolic 111–143; BP diastolic 56–76; PULSE 76–112; RESP 16–27; TEMP 36.2–36.4; O2SAT 93–98
[2024-08-07] MEDS: Albuterol/Iprat 2.5/0.5MG 3 ML AMPUL.NEB INHALE ×5 (00:55→19:30)
[2024-08-07] MEDS: guaiFENesin 100 MG/5 ML 5 ML LIQUID PO (01:59)
[2024-08-07] MEDS: VerapamiL HCL 120 MG TABLET PO ×2 (05:18→20:06)
[2024-08-07] MEDS: Gabapentin 400 MG CAPSULE 1200 MG PO ×3 (05:21→20:07)
[2024-08-07] MEDS: OXcarbazepine 300 MG TABLET 600 MG PO ×2 (05:21→20:06)
[2024-08-07] MEDS: Calcium Oyster Shell Elemental 500 MG TABLET PO (05:21)
[2024-08-07] MEDS: DULoxetine HCl 60 MG CAPSULE.DR PO ×2 (05:21→20:07)
[2024-08-07] MEDS: cefTRIAXone sodium 1 GM VIAL IVPUSH (05:22)
[2024-08-07] MEDS: Baclofen 10 MG TABLET 15 MG PO ×3 (05:22→20:07)
--- NOTE | 2024-08-07 07:00 | CA_ITS ---
Transthoracic Echocardiogram Patient (Last, First, Middle): Zulma Alves R Gender: Female Date of : 1965 Age: 59 Procedure Date: 08/07/2024 Procedure Type: Transthoracic Echocardiogram Location: S3E Height: 154. cm Weight: 88.91 kg BSA: 1.86 m2 Heart Rate: 98 bpm BP: 141 / 79 mmHg Optical Instrument Assembler: JACQUELINE Referring MD: Wilfredo Bhatti MD Symptoms: chest pain Study Quality: Adequate w/Contrast ECG Rhythm: Sinus Conclusions: - The left ventricular systolic function is hyperdynamic. The visually estimated ejection fraction is >70%. - There is mild aortic valve stenosis. Findings Procedure Information Contrast agent, definity, is being given per protocol without apparent complications. Left Ventricle Normal left ventricular cavity size. There is normal left ventricular wall thickness. The left ventricular systolic function is hyperdynamic. The visually estimated ejection fraction is >70%. Diastolic function is normal for age. Right Ventricle Normal right ventricular cavity size and systolic function. Atria Both atria are normal in size. Aortic Valve There is mild calcification of the aortic valve. There is mild aortic valve stenosis. There is no aortic valve regurgitation. Mitral Valve The mitral valve appears normal. There is no mitral valve regurgitation. There is no mitral valve stenosis. Pulmonic Valve The pulmonic valve is likely normal. Tricuspid Valve There is trace tricuspid valve regurgitation. Tricuspid regurgitation envelope is inadequate for calculation of right ventricular systolic pressure. Great Vessels The asc aorta is normal in size. Small plaque is seen in the sino tubular ridge. Venous The inferior vena cava is mildly dilated and collapses greater than 50% with inspiration. Pericardium/Pleural Prominent epicardial adipose tissue noted. There is no evidence of pericardial effusion. Prior Study Comparison No significant change compared to prior study dated: 12/27/2023. Measurements 2D Linear Measurements IVSd: 1.01 0.6-0.9/0.6-1.0 cm LVIDd: 4.34 3.9-5.3/4.2-5.9 cm LVIDd Index: 2.33 2.4-3.2/2.2-3.1 cm/m2 LVIDs: 2.12 2.0-3.6 cm LVPWd: 0.96 0.7-1.1 cm LA Diam: 3.40 2.7-3.8/3.0-4.0 cm LAIDs Index: 1.83 1.5-2.3 cm/m2 LV Mass: 175.78 67-162/88-224 g LV Mass Index: 94.50 43-95/49-115 g/m2 LVOT Diam: 1.80 3.0+(-)1.3 cm 2D Systolic Function EF 4C: 68.80 >55% EF 2C: 73.50 >55% EF BiP: 71.60 >55% Mitral Valve MV Pk E: 1.08 MV PK A: 1.14 MV Decel Time: 242.00 E/A: 0.90 E'Lateral: 9.25 E'Medial: 9.14 E/E' Med: 11.80 E/E' Lat: 11.70 PHT: 71.00 MVA PHT: 3.10 Decel [place]: 4.46 Aortic Valve AoV Pk Griffin: 2.67 AoV Mn Griffin: 1.78 AoV VTI: 0.49 AoV Pk Grad: 29.00 Aov Mn Grad: 15.00 PERICO Cont.VTI: 1.57 LVOT LVOT Pk Griffin: 1.73 LVOT Mn Griffni: 1.19 LVOT VTI: 0.31 LVOT Pk Grad: 12.00 LVOT Mn Grad: 6.00 LVOT Diam: 1.80 LVOT Area: 2.54 Diastolic Function MV Pk E: 1.08 MV Pk A: 1.14 E/A: 0.90 E'Medial: 9.14 E/E' Med: 11.80 E' Laterial: 9.25 E/E' Lat: 11.70 Right Ventricle TAPSE (mm): 29.00 TVS' Griffin: 17.00 Tricuspid Valve RA Press: 8.00 Great Vessels Aorta Sinus of Valsalva: 2.90 2.0-3.5 cm Ao Asc: 3.00 2.1-3.4 cm Pulmonary Valve PV Pk Griffin: 1.06 Peak PV Grad: 4.00 Updated in Other Vendor System with Status of Final Wilfredo Bhatti MD electronically signed on 08/07/2024 4:21:05 PM with status of Final
[2024-08-07] MEDS: cloNIDine HCL 0.1 MG TABLET PO (08:12)
[2024-08-07] MEDS: predniSONE 10 MG TABLET 30 MG PO (08:12)
[2024-08-07] MEDS: HYDROcodone Bit/Acetam 5/325 TABLET 1 TAB PO (08:13)
[2024-08-07] MEDS: Azithromycin 500 MG in 0.9 % Sodium Chloride 250 ML 125 MG IV (08:14)
[2024-08-07] MEDS: 0.9 % Sodium Chloride Flush 3 ML SYRINGE IVFLUSH ×3 (08:17→20:07)
[2024-08-07] MEDS: Acetaminophen 325 MG TABLET 650 MG PO ×2 (10:52→16:15)
--- NOTE | 2024-08-07 13:36 | MHC.CM.PN ---
Per MD rounds patient not medically cleared for dc. CM will continue to follow.
[2024-08-07] MEDS: LORazepam 1 MG TABLET PO ×2 (13:53→21:38)
--- NOTE | 2024-08-07 14:58 | P.CONPL_ITS ---
History of Present Illness History of Present Illness Consult date: 08/07/24 Chief complaint: Dyspnea Narrative: 59-year-old lady with underlying COPD on 2 L and JUANITO, followed by Dr. Henriquez, also obesity, prior CVA, trigeminal neuralgia admitted on 08/03/2024 with worsening dyspnea hypoxia and treated empirically for COPD exacerbation with slow improvement in her respiratory status, now back to baseline level of supplemental oxygen, however still with significant wheezing. Review of Systems 2 Constitutional: Constitutional: Denies daytime sleepiness, Denies excessive sweating, Denies fatigue, Denies fever(s), Denies lethargy, Denies malaise, Denies night sweats, Denies snoring and Denies weight loss Eyes: Eyes: Denies blurry vision and Denies itchy eyes ENT: Denies nasal congestion, Denies post nasal drip, Denies sinus pain, Denies sinus pressure and Denies other ( Thrush) Cardiovascular: Cardiovascular: Denies chest pain, Denies pedal edema, Reports dyspnea, Denies orthopnea and Denies paroxysmal nocturnal dyspnea Respiratory: Respiratory: Denies cough, Denies hemoptysis, Denies excessive phlegm production, Reports dyspnea, Denies snoring and Reports wheezing Gastrointestinal: Gastrointestinal: Denies abdominal pain and Denies heartburn Musculoskeletal: Musculoskeletal: Denies myalgias, Denies arthralgias and Denies joint swelling Integumentary/Breasts: Skin/Breast: Denies rash Neurologic: Denies memory loss and Denies seizure-like activity Psychiatric: Psychiatric: Denies abnormal sleep pattern, Denies anxiety and Denies memory loss Endocrine: Endocrine: Denies excessive sweating, Denies fatigue and Denies heat intolerance Hematologic/Lymphatic: Hematologic/Lymphatic: Denies easy bruising Allergic/Immunologic: Allergic/Immunologic: Denies itchy eyes, Denies seasonal rhinorrhea and Reports wheezing PMFSH Past Medical History Medical History (Updated 08/05/24 @ 18:25 by Doroteo Montana MD) Panic disorder Hypertension Chronic hypercapnic respiratory failure Aortic stenosis Obesity (BMI 30-39.9) Asthma Acute exacerbation of chronic obstructive pulmonary disease Chronic lung disease Hypogammaglobulinemia Smoker JUANITO (obstructive sleep apnea) Allergies Elevated troponin COPD (chronic obstructive pulmonary disease) Trigeminal neuralgia Pulmonary nodules Mixed hyperlipidemia Peripheral neuropathy Tobacco use disorder Mood disorder Surgical History Surgical History History of esophagogastroduodenoscopy (EGD) History of colonoscopy History of lumbar discectomy History of tubal ligation History of excision of mass History of shoulder surgery Social History Social History Household Members: Spouse Housing: House Do you presently have visiting nurse or other home services: No Alcohol intake: never Comment: patient declines bed alarm, ongoing, declines HFR protocol Patient Tobacco Use Status: Former Tobacco user Tobacco use type: Cigarette Cigarette Packs Per Day: 4 Cigarettes Per Day: 80.0 Years Smoked: 40 Smoked in Last 30 Days: No e-Cigarette/Vaping Use: Former Use Patient Interested in Nicotine Replacement: No Patient Given Instructions on How to Stop Smoking: No Second Hand Smoke Exposure: No Use of substances other than those prescribed or required for medical reasons: No Substance Use Type: Marijuana Substance Use Frequency: Daily Last Used Substance: Days (ago) Currently Displaying Signs/Symptoms of Drug Intoxication Withdrawal: No Other Past Substance Use Problem:: patient states she uses CBD and THC edibles at bedtime Any prior treatment program specific to substance use: No Have you been hit, kicked, punched, or otherwise hurt by someone within the past year? If so, by whom?: No Do you feel safe in your current relationship?: Yes Is there a partner from a previous relationship who is making you feel unsafe now?: No Are you made to feel afraid or neglected: No Advance Directives: No Advance Directives Information Provided: Yes Advance Directives Date on File: 03/09/23 Do you have a plan to hurt others: No Plan Recently lost weight without trying: No How much weight loss: Not applicable Eating poorly because of decreased appetite: No Nutrition screen score: 0 Nutrition Risks: No Nutritional Risk Patient : No : No Poor oral hygiene: No service: No Meds Allergies Allergy/AdvReac Type Severity Reaction Status Date / Time Iodinated Contrast Media Allergy Intermediate HIVES Verified 08/03/24 01:25 [IV CONTRAST] latex [LATEX] Allergy Unknown RASH Verified 08/03/24 01:25 adhesive tape Allergy Rash Verified 08/03/24 01:25 morphine [MORPHINE] AdvReac Unknown VOMITING Verified 08/03/24 01:25 Active Medications: Current Medications Acetaminophen (Acetaminophen 325 Mg Tablet) 650 mg PO Q6H [facility] Last Admin: 02/24/25 10:52 Dose: 650 mg Acetaminophen/Butalbital/Caffeine (Butalb/Acetamin/Caff 50/325/40 Tablet) 1 tab PO DAILY MRX1 PRN PRN Reason: Headache Last Admin: 08/05/24 00:20 Dose: 1 tab Hydrocodone Bitart/Acetaminophen (Hydrocodone Bit/Acetam 5/325 Tablet) 1 tab PO DAILY REPLACED BY [facility] Last Admin: 08/07/24 08:13 Dose: 1 tab Albuterol/Ipratropium (Albuterol/Iprat 2.5/0.5mg 3 Ml Ampul.Neb) 3 ml INHALE Q4H PRN PRN Reason: Wheezing Last Admin: 08/07/24 14:10 Dose: 3 ml Albuterol/Ipratropium (Albuterol/Iprat 2.5/0.5mg 3 Ml Ampul.Neb) 3 ml INHALE RQ4H WHILE AWAKE REPLACED BY [facility] Last Admin: 08/07/24 10:11 Dose: 3 ml Aspirin (Aspirin Enteric Coated 81 Mg Tablet.) 81 mg PO DAILY@1999 REPLACED BY [facility] Last Admin: 08/06/24 20:23 Dose: 81 mg Atorvastatin Calcium (Atorvastatin Calcium 80 Mg Tablet) 80 mg PO DAILY@1999 REPLACED BY [facility] Last Admin: 08/06/24 20:23 Dose: 80 mg Baclofen (Baclofen 10 Mg Tablet) 15 mg PO DAILY@499,1199,1999 REPLACED BY [facility] Last Admin: 08/07/24 12:28 Dose: 15 mg Calcium Carbonate (Calcium Carbonate 750 Mg Tab.Chew) 750 mg PO Q4H PRN PRN Reason: Heartburn Calcium Carbonate (Calcium Oyster Shell Elemental 500 Mg Tablet) 500 mg PO DAILY@050 REPLACED BY [facility] Last Admin: 08/07/24 05:21 Dose: 500 mg Ceftriaxone Sodium (Ceftriaxone Sodium 1 Gm Vial) 1 gm IVPUSH Q24H REPLACED BY [facility] Last Admin: 08/07/24 05:22 Dose: 1 gm Clonidine HCl (Clonidine Hcl 0.1 Mg Tablet) 0.1 mg PO BID@0900,1300 REPLACED BY [facility]; Protocol Last Admin: 08/07/24 14:30 Dose: Not Given Duloxetine HCl (Duloxetine Hcl 60 Mg Capsule.) 60 mg PO BID@499,1999 REPLACED BY [facility] Last Admin: 08/07/24 05:21 Dose: 60 mg Gabapentin (Gabapentin 400 Mg Capsule) 1,200 mg PO TID@499,1199,1999 REPLACED BY [facility] Last Admin: 08/07/24 12:28 Dose: 1,200 mg Guaifenesin (Guaifenesin 100 Mg/5 Ml 5 Ml Liquid) 5 ml PO Q4H PRN PRN Reason: Cough Last Admin: 08/07/24 01:59 Dose: 5 ml Azithromycin 500 mg/ Sodium (Chloride) 250 mls @ 125 mls/hr IV Q24H REPLACED BY [facility] Last Infusion: 08/07/24 10:35 Dose: Infused Lorazepam (Lorazepam 1 Mg Tablet) 1 mg PO BID PRN PRN Reason: Severe Anxiety Last Admin: 08/07/24 13:53 Dose: 1 mg Magnesium Hydroxide (Milk Of Magnesia 30 Ml Oral.Susp) 30 ml PO DAILY PRN PRN Reason: Constipation Melatonin (Melatonin 3 Mg Tablet) 6 mg PO BEDTIME PRN PRN Reason: Insomnia Ondansetron HCl (Ondansetron Hcl 4 Mg/2 Ml Vial) 4 mg IVPUSH Q8H PRN PRN Reason: Nausea and Vomiting Oxcarbazepine (Oxcarbazepine 300 Mg Tablet) 600 mg PO BID@ REPLACED BY [facility] Last Admin: 08/07/24 05:21 Dose: 600 mg Prazosin HCl (Prazosin Hcl 1 Mg Capsule) 2 mg PO DAILY@1999 REPLACED BY [facility]; Protocol Last Admin: 08/06/24 20:23 Dose: 2 mg Prednisone (Prednisone 10 Mg Tablet) 30 mg PO DAILY REPLACED BY [facility] Last Admin: 08/07/24 08:12 Dose: 30 mg Sodium Chloride (0.9 % Sodium Chloride Flush 3 Ml Syringe) [facility] Last Admin: 08/07/24 08:17 Dose: 3 ml Trazodone HCl (Trazodone Hcl 25 Mg Halftab) 25 mg PO BEDTIME PRN PRN Reason: Sleep Last Admin: 08/05/24 22:18 Dose: 25 mg Verapamil HCl (Verapamil Hcl 120 Mg Tablet) 120 mg PO BID@ REPLACED BY [facility]; Protocol Last Admin: 08/07/24 05:18 Dose: 120 mg Home Medications ?Medication ?Instructions ?Recorded ?Confirmed ?Last Taken ?Type atorvastatin 80 mg tablet 80 mg PO DAILY@199903/04/23 08/03/24 08/02/24 History tnztkqctym-opcyewoimzlql-elhhtuca 1 tab PO DAILY MRX1 PRN Headache 03/04/23 08/03/24 05/21/24 20:00 History 50 mg-325 mg-40 mg tablet duloxetine 60 mg capsule,delayed 60 mg PO BID@499,199903/04/23 08/03/24 08/02/24 History release gabapentin 300 mg capsule 1,200 mg PO TID@0500,1200,199903/04/23 08/03/24 08/02/24 History hyoscyamine sulfate 0.125 mg tablet 0.25 mg PO Q6H PRN Abdominal 03/04/23 08/03/24 05/21/24 20:00 History Discomfort lorazepam 1 mg tablet 1 mg PO DAILY PRN SEVERE Anxiety 03/04/23 08/03/24 3 Days Ago History ~07/31/24 oxcarbazepine 600 mg tablet 600 mg PO BID@499,199903/04/23 08/03/24 08/02/24 History Oxygen Home Use 04/16/23 03/10/24 03/10/24 History prazosin 2 mg capsule 2 mg PO DAILY@199904/16/23 08/03/24 08/02/24 History albuterol sulfate 90 mcg/actuation 2 puff inhalation Q4H PRN 01/31/24 08/03/24 05/21/24 20:00 History aerosol inhaler Shortness Of Breath Or Wheezing aspirin 81 mg tablet,delayed 81 mg PO DAILY@199905/22/24 08/03/24 08/02/24 History release calcium 600 mg (as 1 tab PO DAILY@0500 06/20/24 08/03/24 08/02/24 History carbonate)-vitamin D3 5 mcg (200 unit) tablet baclofen 10 mg tablet 15 mg PO DAILY@0500,1200,199907/02/24 08/03/24 08/02/24 History hydrocodone 5 mg-acetaminophen 325 1 tab PO DAILY 07/02/24 08/03/24 08/02/24 History mg tablet verapamil 120 mg tablet 120 mg PO BID@050,199907/02/24 08/03/24 08/02/24 History lorazepam 0.5 mg tablet 0.5 mg PO DAILY PRN MODERATE 08/03/24 08/03/24 Unknown History Anxiety Physical Exam 2 Vital Signs: Vital Signs: Last Vital Signs Temp 97.2 F 08/07/24 08:01 Pulse 112 H 08/07/24 14:10 Resp 18 08/07/24 14:10 BP 111/56 L 08/07/24 08:01 Pulse Ox 93 08/07/24 08:01 O2 Del Method Nasal Cannula 08/07/24 08:01 O2 Flow Rate 2 08/07/24 08:01 FiO2 50 08/03/24 01:18 Oxygen Flow Rate 2 08/05/24 18:07 BMI result Body Mass Index 37.0 Const: General: no acute distress and alert Nutritional Appearance: obese Orientation/consciousness: Other orientation findings ( oriented) HEENT: Head: Yes atraumatic Eyes: General: appearance normal, both eyes and all related structures S clerae: sclerae normal EOM: EOMs intact bilaterally Neck: Neck: Yes supple Lymphatic: no lymphadenopathy noted Resp: Effort & Inspection: normal respiratory effort and no use of accessory muscles Auscultation: other (Poor bilateral air movement) Cardio: Rate: regular rate Rhythm: regular rhythm Heart sounds: no gallops, no murmurs and no rubs Skin: General skin exam: other ( warm) Extrem: General: No clubbing, No cyanosis and No edema Results Laboratory Findings 08/04/24 04:23 08/04/24 04:23 Abnormal lab findings: Abnormal Labs 08/03/24 08/03/24 08/03/24 01:36 01:39 01:44 RBC MPV 9.2 L Neut % (Auto) 43.9 L [place] % (Auto) 11.6 H Eos % (Auto) 7.6 H Eos # (Auto) 0.6 H VBG HCO3 33 H Random Glucose 150 H AST 47 H ALT 38 H Troponin I High Sens 08/03/24 08/04/24 08/05/24 05:05 04:23 09:57 RBC 4.00 L MPV 8.9 L Neut % (Auto) [place] % (Auto) 12.3 H Eos % (Auto) Eos # (Auto) VBG HCO3 27 H Random Glucose 123 H AST ALT Troponin I High Sens 36.2 H D Microbiology: Microbiology 08/03/24 01:41 Blood - Venous Blood Culture - Preliminary No growth after 48 hours. 08/03/24 01:41 Blood - Venous Blood Culture - Preliminary No growth after 48 hours. Assessment and Plan (1) Acute exacerbation of chronic obstructive pulmonary disease: Status: Acute (2) Chronic hypoxic respiratory failure: Status: Resolved Plan Impression: 59-year-old lady admitted with exacerbation of her underlying COPD, improving slowly, however still with significant wheezing and dyspnea. Recommendations: Agree with current treatment regimen including systemic glucocorticoids and nebulized bronchodilators. Also, appears to have anxiety component. Procedures Date of Service Date of Service: 08/07/24
--- NOTE | 2024-08-07 15:38 | HO.PM.IMPN ---
Subjective Subjective Date of Service: 08/07/24 Interval History: copd Review of Systems instemittent sob ? possible anxiety contributing Physical Exam Vital Signs: Vital Signs: Last Vital Signs Temp 97.2 F 08/07/24 08:01 Pulse 112 H 08/07/24 14:10 Resp 18 08/07/24 14:10 BP 111/56 L 08/07/24 08:01 Pulse Ox 93 08/07/24 08:01 O2 Del Method Nasal Cannula 08/07/24 08:01 O2 Flow Rate 2 08/07/24 08:01 FiO2 50 08/03/24 01:18 Oxygen Flow Rate 2 08/05/24 18:07 BMI result Body Mass Index 37.0 Appearance: Alert.? Oriented X3.? sob improving ,has intermittent sob. cvs: rrr, [id number] . res: air entry diminshed ,has wheezing abd: no rebound or guarding ,nt, bs present. ext pulses present , no cyanosis neuro: axo3 , nonfocal. Objective Data Active Medications Acetaminophen (Acetaminophen 325 Mg Tablet) 650 mg PO Q6H [facility] Last Admin: 08/07/24 10:52 Dose: 650 mg Documented By: WOLF Acetaminophen/Butalbital/Caffeine (Butalb/Acetamin/Caff 50/325/40 Tablet) 1 tab PO DAILY MRX1 PRN PRN Reason: Headache Last Admin: 08/05/24 00:20 Dose: 1 tab Documented By: DESTINEE Hydrocodone Bitart/Acetaminophen (Hydrocodone Bit/Acetam 5/325 Tablet) 1 tab PO DAILY [facility] Last Admin: 08/07/24 08:13 Dose: 1 tab Documented By: WOLF Albuterol/Ipratropium (Albuterol/Iprat 2.5/0.5mg 3 Ml Ampul.Neb) 3 ml INHALE Q4H PRN PRN Reason: Wheezing Last Admin: 08/07/24 14:10 Dose: 3 ml Documented By: MARYLU Albuterol/Ipratropium (Albuterol/Iprat 2.5/0.5mg 3 Ml Ampul.Neb) 3 ml INHALE RQ4H WHILE AWAKE [facility] Last Admin: 08/07/24 10:11 Dose: 3 ml Documented By: MARYLU Aspirin (Aspirin Enteric Coated 81 Mg Tablet.) 81 mg PO DAILY@1999 [facility] Last Admin: 08/06/24 20:23 Dose: 81 mg Documented By: J CARLOS Atorvastatin Calcium (Atorvastatin Calcium 80 Mg Tablet) 80 mg PO DAILY@1999 [facility] Last Admin: 08/06/24 20:23 Dose: 80 mg Documented By: J CARLOS Baclofen (Baclofen 10 Mg Tablet) 15 mg PO DAILY@0500,1200,1999 [facility] Last Admin: 08/07/24 12:28 Dose: 15 mg Documented By: WOLF Calcium Carbonate (Calcium Carbonate 750 Mg Tab.Chew) 750 mg PO Q4H PRN PRN Reason: Heartburn Calcium Carbonate (Calcium Oyster Shell Elemental 500 Mg Tablet) 500 mg PO DAILY@499 [facility] Last Admin: 08/07/24 05:21 Dose: 500 mg Documented By: J CARLOS Ceftriaxone Sodium (Ceftriaxone Sodium 1 Gm Vial) 1 gm IVPUSH Q24H [facility] Last Admin: 08/07/24 05:22 Dose: 1 gm Documented By: J CARLOS Clonidine HCl (Clonidine Hcl 0.1 Mg Tablet) 0.1 mg PO BID@0900,1300 [facility]; Protocol Last Admin: 08/07/24 14:30 Dose: Not Given Documented By: WOLF Non-Admin Reason: Patient Refused Duloxetine HCl (Duloxetine Hcl 60 Mg Capsule.) 60 mg PO BID@499,1999 [facility] Last Admin: 08/07/24 05:21 Dose: 60 mg Documented By: J CARLOS Gabapentin (Gabapentin 400 Mg Capsule) 1,200 mg PO TID@0500,1199,1999 [facility] Last Admin: 08/07/24 12:28 Dose: 1,200 mg Documented By: WOLF Guaifenesin (Guaifenesin 100 Mg/5 Ml 5 Ml Liquid) 5 ml PO Q4H PRN PRN Reason: Cough Last Admin: 08/07/24 01:59 Dose: 5 ml Documented By: J CARLOS Azithromycin 500 mg/ Sodium (Chloride) 250 mls @ 125 mls/hr IV Q24H [facility] Last Infusion: 08/07/24 10:35 Dose: Infused Documented By: WOLF Lorazepam (Lorazepam 1 Mg Tablet) 1 mg PO BID PRN PRN Reason: Severe Anxiety Last Admin: 08/07/24 13:53 Dose: 1 mg Documented By: WOLF Magnesium Hydroxide (Milk Of Magnesia 30 Ml Oral.Susp) 30 ml PO DAILY PRN PRN Reason: Constipation Melatonin (Melatonin 3 Mg Tablet) 6 mg PO BEDTIME PRN PRN Reason: Insomnia Ondansetron HCl (Ondansetron Hcl 4 Mg/2 Ml Vial) 4 mg IVPUSH Q8H PRN PRN Reason: Nausea and Vomiting Oxcarbazepine (Oxcarbazepine 300 Mg Tablet) 600 mg PO BID@ [facility] Last Admin: 08/07/24 05:21 Dose: 600 mg Documented By: J CARLOS Prazosin HCl (Prazosin Hcl 1 Mg Capsule) 2 mg PO DAILY@1999 [facility]; Protocol Last Admin: 08/06/24 20:23 Dose: 2 mg Documented By: J CARLOS Prednisone (Prednisone 10 Mg Tablet) 30 mg PO DAILY [facility] Last Admin: 08/07/24 08:12 Dose: 30 mg Documented By: WOLF Sodium Chloride (0.9 % Sodium Chloride Flush 3 Ml Syringe) [facility] Last Admin: 08/07/24 08:17 Dose: 3 ml Documented By: WOLF Trazodone HCl (Trazodone Hcl 25 Mg Halftab) 25 mg PO BEDTIME PRN PRN Reason: Sleep Last Admin: 08/05/24 22:18 Dose: 25 mg Documented By: DESTINEE Verapamil HCl (Verapamil Hcl 120 Mg Tablet) 120 mg PO BID@ [facility]; Protocol Last Admin: 08/07/24 05:18 Dose: 120 mg Documented By: J CARLOS Labs 08/04/24 04:23 08/04/24 04:23 Assessment and Plan (1) Hypoxia: Status: Acute Assessment and Plan: Acute on chronic hypoxic respiratory failure due to Acute exacerbation of COPD and right-sided pneumonia: no fevers ,blood cultures neg@24hrs sob with minimal excersion Continue scheduled and p.r.n. DuoNebs,switch to po steriods(might be contributing anxiety), iv antibiotics,Wean back to home oxygen. chest tight seems atypical-trop neg,ekg-not much st changes cardiology eval noted-atypical pain ,trop and ekg (yesterday). has some tightness ? anxiety related ,repeat ekg no intervention,continue to treat respiratory symptoms. History of CVA/mixed hyperlipidemia: On aspirin and statin Hypertension: On Cardizem Trigeminal neuralgia: On baclofen,trileptal, Neurontin and Cymbalta. Mood disorder: given additional ativanx1 , also added trazdone for sleep at bedtime. Continue home mood stabilizers. psych eval added -anxiety might also contibuting for hyperventilation-added clonidine ,ativan 0.5 mg po bid prn Morbid obesity: Counseled regarding diet and exercise Lower extremity edema: On Lasix. JUANITO: Noncompliant with NIV at home ongoing need for hospital stay for supplemental oxygen, IV antibiotics (as above), which is not possible in a lesser acute setting. Quality Stroke Does the patient have a stroke diagnosis?: No VTE Prior VTE?: No VTE Risk Level:: Medical - moderate - high VTE Device Contraindication: Treatment Not Indicated VTE Drug Contraindication: N/A - Med Ordered
[2024-08-07] MEDS: Milk of Magnesia 30 ML ORAL.SUSP PO (16:15)
[2024-08-07] MEDS: predniSONE 20 MG TABLET PO (16:16)
[2024-08-07] MEDS: Prazosin HCL 1 MG CAPSULE 2 MG PO (20:06)
[2024-08-07] MEDS: Aspirin Enteric Coated 81 MG TABLET.DR PO (20:07)
[2024-08-07] MEDS: Atorvastatin Calcium 80 MG TABLET PO (20:07)
[2024-08-07] MEDS: traMADoL HCL 50 MG TABLET PO (20:36)
[2024-08-08] VITALS (11 sets, daily range): BP systolic 120–144; BP diastolic 59–81; PULSE 82–96; RESP 16–20; TEMP 36.1–36.3; O2SAT 94–99
[2024-08-08] MEDS: Albuterol/Iprat 2.5/0.5MG 3 ML AMPUL.NEB INHALE ×6 (00:52→22:07)
[2024-08-08] MEDS: Acetaminophen 325 MG TABLET 650 MG PO ×4 (03:58→21:26)
[2024-08-08] MEDS: Gabapentin 400 MG CAPSULE 1200 MG PO ×3 (05:02→21:21)
[2024-08-08] MEDS: DULoxetine HCl 60 MG CAPSULE.DR PO ×2 (05:03→21:21)
[2024-08-08] MEDS: OXcarbazepine 300 MG TABLET 600 MG PO ×2 (05:03→21:23)
[2024-08-08] MEDS: Calcium Oyster Shell Elemental 500 MG TABLET PO (05:03)
[2024-08-08] MEDS: Baclofen 10 MG TABLET 15 MG PO ×3 (05:03→21:28)
[2024-08-08] MEDS: VerapamiL HCL 120 MG TABLET PO ×2 (05:04→21:20)
[2024-08-08] MEDS: cefTRIAXone sodium 1 GM VIAL IVPUSH (05:04)
[2024-08-08] MEDS: Azithromycin 500 MG in 0.9 % Sodium Chloride 250 ML 125 MG IV (08:37)
[2024-08-08] MEDS: cloNIDine HCL 0.1 MG TABLET PO ×2 (08:38→13:13)
[2024-08-08] MEDS: 0.9 % Sodium Chloride Flush 3 ML SYRINGE IVFLUSH ×3 (08:38→21:29)
[2024-08-08] MEDS: HYDROcodone Bit/Acetam 5/325 TABLET 1 TAB PO (08:38)
[2024-08-08] MEDS: predniSONE 20 MG TABLET 40 MG PO (08:43)
[2024-08-08] MEDS: LORazepam 1 MG TABLET PO ×2 (11:01→21:23)
--- NOTE | 2024-08-08 14:08 | P.PNIM_ITS ---
Subjective Subjective Date of Service: 08/08/24 Interval History: copd Review of Systems sob somewhat improving has some cough Physical Exam 2 Vital Signs: Vital Signs: Last Vital Signs Temp 97.4 F 08/08/24 13:10 Pulse 91 08/08/24 13:10 Resp 16 08/08/24 13:10 BP 127/60 08/08/24 13:10 Pulse Ox 94 08/08/24 13:10 O2 Del Method Nasal Cannula 08/08/24 13:10 O2 Flow Rate 2 08/08/24 13:10 FiO2 50 08/03/24 01:18 Oxygen Flow Rate 2 08/05/24 18:07 BMI result Body Mass Index 37.0 Appearance: Alert.? Oriented X3.? sob improving ,has intermittent sob. cvs: rrr, [id number] . res: air entry diminshed ,has wheezing abd: no rebound or guarding ,nt, bs present. ext pulses present , no cyanosis neuro: axo3 , nonfocal. Objective Data Active Medications Acetaminophen (Acetaminophen 325 Mg Tablet) 650 mg PO Q6H [facility] Last Admin: 08/08/24 10:44 Dose: 650 mg Documented By: WOLF Acetaminophen/Butalbital/Caffeine (Butalb/Acetamin/Caff 50/325/40 Tablet) 1 tab PO DAILY MRX1 PRN PRN Reason: Headache Last Admin: 08/05/24 00:20 Dose: 1 tab Documented By: DESTINEE Hydrocodone Bitart/Acetaminophen (Hydrocodone Bit/Acetam 5/325 Tablet) 1 tab PO DAILY [facility] Last Admin: 08/08/24 08:38 Dose: 1 tab Documented By: WOLF Albuterol/Ipratropium (Albuterol/Iprat 2.5/0.5mg 3 Ml Ampul.Neb) 3 ml INHALE Q4H PRN PRN Reason: Wheezing Last Admin: 08/08/24 00:52 Dose: 3 ml Documented By: CASSIDY Albuterol/Ipratropium (Albuterol/Iprat 2.5/0.5mg 3 Ml Ampul.Neb) 3 ml INHALE RQ4H WHILE AWAKE [facility] Last Admin: 08/08/24 11:13 Dose: 3 ml Documented By: MARYLU Albuterol/Ipratropium (Albuterol/Iprat 2.5/0.5mg 3 Ml Ampul.Neb) 3 ml INHALE ONCE PRN PRN Reason: sob Aspirin (Aspirin Enteric Coated 81 Mg Tablet.) 81 mg PO DAILY@1999 [facility] Last Admin: 08/07/24 20:07 Dose: 81 mg Documented By: J CARLOS Atorvastatin Calcium (Atorvastatin Calcium 80 Mg Tablet) 80 mg PO DAILY@1999 [facility] Last Admin: 08/07/24 20:07 Dose: 80 mg Documented By: J CARLOS Baclofen (Baclofen 10 Mg Tablet) 15 mg PO DAILY@0500,1199,1999 [facility] Last Admin: 08/08/24 11:36 Dose: 15 mg Documented By: WOLF Calcium Carbonate (Calcium Carbonate 750 Mg Tab.Chew) 750 mg PO Q4H PRN PRN Reason: Heartburn Calcium Carbonate (Calcium Oyster Shell Elemental 500 Mg Tablet) 500 mg PO DAILY@499 [facility] Last Admin: 08/08/24 05:03 Dose: 500 mg Documented By: J CARLOS Ceftriaxone Sodium (Ceftriaxone Sodium 1 Gm Vial) 1 gm IVPUSH Q24H [facility] Last Admin: 08/08/24 05:04 Dose: 1 gm Documented By: J CARLOS Clonidine HCl (Clonidine Hcl 0.1 Mg Tablet) 0.1 mg PO BID@0900,1300 [facility]; Protocol Last Admin: 08/08/24 13:13 Dose: 0.1 mg Documented By: WOLF Duloxetine HCl (Duloxetine Hcl 60 Mg Capsule.) 60 mg PO BID@499,1999 [facility] Last Admin: 08/08/24 05:03 Dose: 60 mg Documented By: J CARLOS Gabapentin (Gabapentin 400 Mg Capsule) 1,200 mg PO TID@050,1199,1999 [facility] Last Admin: 08/08/24 11:36 Dose: 1,200 mg Documented By: WOLF Guaifenesin (Guaifenesin 100 Mg/5 Ml 5 Ml Liquid) 5 ml PO Q4H PRN PRN Reason: Cough Last Admin: 08/07/24 01:59 Dose: 5 ml Documented By: J CARLOS Azithromycin 500 mg/ Sodium (Chloride) 250 mls @ 125 mls/hr IV Q24H [facility] Last Infusion: 08/08/24 10:47 Dose: Infused Documented By: WOLF Lorazepam (Lorazepam 1 Mg Tablet) 1 mg PO BID PRN PRN Reason: Severe Anxiety Last Admin: 08/08/24 11:01 Dose: 1 mg Documented By: WOLF Magnesium Hydroxide (Milk Of Magnesia 30 Ml Oral.Susp) 30 ml PO DAILY PRN PRN Reason: Constipation Last Admin: 08/07/24 16:15 Dose: 30 ml Documented By: WOLF Melatonin (Melatonin 3 Mg Tablet) 6 mg PO BEDTIME PRN PRN Reason: Insomnia Ondansetron HCl (Ondansetron Hcl 4 Mg/2 Ml Vial) 4 mg IVPUSH Q8H PRN PRN Reason: Nausea and Vomiting Oxcarbazepine (Oxcarbazepine 300 Mg Tablet) 600 mg PO BID@ [facility] Last Admin: 08/08/24 05:03 Dose: 600 mg Documented By: J CARLOS Prazosin HCl (Prazosin Hcl 1 Mg Capsule) 2 mg PO DAILY@1999 [facility]; Protocol Last Admin: 08/07/24 20:06 Dose: 2 mg Documented By: J CARLOS Prednisone (Prednisone 20 Mg Tablet) 40 mg PO DAILY [facility] Last Admin: 08/08/24 08:43 Dose: 40 mg Documented By: WOLF Sodium Chloride (0.9 % Sodium Chloride Flush 3 Ml Syringe) 3 ml IVFSH [facility] Last Admin: 08/08/24 08:38 Dose: 3 ml Documented By: WOLF Trazodone HCl (Trazodone Hcl 25 Mg Halftab) 25 mg PO BEDTIME PRN PRN Reason: Sleep Last Admin: 08/05/24 22:18 Dose: 25 mg Documented By: DESTINEE Verapamil HCl (Verapamil Hcl 120 Mg Tablet) 120 mg PO BID@ [facility]; Protocol Last Admin: 08/08/24 05:04 Dose: 120 mg Documented By: J CARLOS Labs 08/04/24 04:23 08/04/24 04:23 Microbiology Microbiology Results: Microbiology 08/03/24 01:41 Blood Culture - Final Blood - Venous No growth after 5 days. 08/03/24 01:41 Blood Culture - Final Blood - Venous No growth after 5 days. Assessment and Plan (1) Hypoxia: Status: Acute Assessment and Plan: Acute on chronic hypoxic respiratory failure due to Acute exacerbation of COPD and right-sided pneumonia: no fevers ,blood cultures neg sob with minimal excersion Continue scheduled and p.r.n. DuoNebs,switch to po steriods(might be contributing anxiety), iv antibiotics,Wean back to home oxygen. chest tight seems atypical-trop neg,ekg-not much st changes cardiology eval noted-atypical pain ,ekg's ,trops negative no intervention,continue to treat respiratory symptoms. seen by cardio-atypical pain. History of CVA/mixed hyperlipidemia: On aspirin and statin Hypertension: On Cardizem Trigeminal neuralgia: On baclofen,trileptal, Neurontin and Cymbalta. Mood disorder: given additional ativanx1 , also added trazdone for sleep at bedtime. Continue home mood stabilizers. anxiety might also contibuting for hyperventilation- clonidine ,ativan 0.5 mg po bid prn,psych following Morbid obesity: Counseled regarding diet and exercise Lower extremity edema: On Lasix. JUANITO: Noncompliant with NIV at home ongoing need for hospital stay for supplemental oxygen, IV antibiotics (as above), which is not possible in a lesser acute setting. Quality Stroke Does the patient have a stroke diagnosis?: No VTE Prior VTE?: No VTE Risk Level:: Medical - moderate - high VTE Device Contraindication: Treatment Not Indicated VTE Drug Contraindication: N/A - Med Ordered
[2024-08-08] MEDS: Prazosin HCL 1 MG CAPSULE 2 MG PO (21:21)
[2024-08-08] MEDS: Atorvastatin Calcium 80 MG TABLET PO (21:21)
[2024-08-08] MEDS: Aspirin Enteric Coated 81 MG TABLET.DR PO (21:23)
[2024-08-08] MEDS: guaiFENesin 100 MG/5 ML 5 ML LIQUID PO (21:53)
[2024-08-09] VITALS (10 sets, daily range): BP systolic 119–156; BP diastolic 57–71; PULSE 77–89; RESP 16–20; TEMP 36.3–36.6; O2SAT 93–98
[2024-08-09] MEDS: OXcarbazepine 300 MG TABLET 600 MG PO ×2 (05:25→21:24)
[2024-08-09] MEDS: VerapamiL HCL 120 MG TABLET PO ×2 (05:25→21:26)
[2024-08-09] MEDS: Baclofen 10 MG TABLET 15 MG PO ×3 (05:26→21:25)
[2024-08-09] MEDS: Gabapentin 400 MG CAPSULE 1200 MG PO ×3 (05:26→21:23)
[2024-08-09] MEDS: DULoxetine HCl 60 MG CAPSULE.DR PO ×2 (05:26→21:22)
[2024-08-09] MEDS: Calcium Oyster Shell Elemental 500 MG TABLET PO (05:26)
[2024-08-09] MEDS: cefTRIAXone sodium 1 GM VIAL IVPUSH (05:27)
[2024-08-09] MEDS: HYDROcodone Bit/Acetam 5/325 TABLET 1 TAB PO (05:33)
[2024-08-09] MEDS: guaiFENesin 100 MG/5 ML 5 ML LIQUID PO ×2 (05:38→18:13)
[2024-08-09] MEDS: Albuterol/Iprat 2.5/0.5MG 3 ML AMPUL.NEB INHALE ×5 (05:53→19:41)
[2024-08-09] MEDS: Azithromycin 500 MG in 0.9 % Sodium Chloride 250 ML 125 MG IV (08:07)
[2024-08-09] MEDS: LORazepam 1 MG TABLET PO ×2 (08:08→21:24)
[2024-08-09] MEDS: 0.9 % Sodium Chloride Flush 3 ML SYRINGE IVFLUSH ×2 (08:08→21:26)
[2024-08-09] MEDS: cloNIDine HCL 0.1 MG TABLET PO ×3 (08:08→21:23)
[2024-08-09] MEDS: predniSONE 20 MG TABLET 40 MG PO (08:08)
--- NOTE | 2024-08-09 10:42 | P.PNIM_ITS ---
Subjective Subjective Date of Service: 08/09/24 Interval History: not at baseline Physical Exam 2 Vital Signs: Vital Signs: Last Vital Signs Temp 97.8 F 08/09/24 07:39 Pulse 88 08/09/24 07:39 Resp 18 08/09/24 07:39 BP 119/57 L 08/09/24 07:39 Pulse Ox 93 08/09/24 07:39 O2 Del Method Nasal Cannula 08/09/24 07:39 O2 Flow Rate 3 08/09/24 07:39 FiO2 50 08/03/24 01:18 Oxygen Flow Rate 2 08/05/24 18:07 BMI result Body Mass Index 37.0 General: AO X 3, no acute distress Resp: CTA bilateral, no accessory muscles used CVS: S1,S2,RRR GI: soft, non tender, non distended Neuro: motor grossly intact, alert Psych: appropriate affect, appropriate insight Objective Data Active Medications Acetaminophen (Acetaminophen 325 Mg Tablet) 650 mg PO Q6H [facility] Last Admin: 08/09/24 05:55 Dose: Not Given Documented By: SANTI Non-Admin Reason: exceeded allowed daily dose Acetaminophen/Butalbital/Caffeine (Butalb/Acetamin/Caff 50/325/40 Tablet) 1 tab PO DAILY MRX1 PRN PRN Reason: Headache Last Admin: 08/05/24 00:20 Dose: 1 tab Documented By: DESTINEE Albuterol/Ipratropium (Albuterol/Iprat 2.5/0.5mg 3 Ml Ampul.Neb) 3 ml INHALE Q4H PRN PRN Reason: Wheezing Last Admin: 08/09/24 05:53 Dose: 3 ml Documented By: THIERRY Albuterol/Ipratropium (Albuterol/Iprat 2.5/0.5mg 3 Ml Ampul.Neb) 3 ml INHALE RQ4H WHILE AWAKE [facility] Last Admin: 08/09/24 07:31 Dose: 3 ml Documented By: RAHEEM Albuterol/Ipratropium (Albuterol/Iprat 2.5/0.5mg 3 Ml Ampul.Neb) 3 ml INHALE ONCE PRN PRN Reason: sob Aspirin (Aspirin Enteric Coated 81 Mg Tablet.) 81 mg PO DAILY@1999 [facility] Last Admin: 08/08/24 21:23 Dose: 81 mg Documented By: SANTI Atorvastatin Calcium (Atorvastatin Calcium 80 Mg Tablet) 80 mg PO DAILY@1999 [facility] Last Admin: 08/08/24 21:21 Dose: 80 mg Documented By: SANTI Baclofen (Baclofen 10 Mg Tablet) 15 mg PO DAILY@0500,1200,1999 [facility] Last Admin: 08/09/24 05:26 Dose: 15 mg Documented By: SANTI Calcium Carbonate (Calcium Carbonate 750 Mg Tab.Chew) 750 mg PO Q4H PRN PRN Reason: Heartburn Calcium Carbonate (Calcium Oyster Shell Elemental 500 Mg Tablet) 500 mg PO DAILY@0500 [facility] Last Admin: 08/09/24 05:26 Dose: 500 mg Documented By: SANTI Ceftriaxone Sodium (Ceftriaxone Sodium 1 Gm Vial) 1 gm IVPUSH Q24H [facility] Last Admin: 08/09/24 05:27 Dose: 1 gm Documented By: SANTI Clonidine HCl (Clonidine Hcl 0.1 Mg Tablet) 0.1 mg PO BID@0900,1300 [facility]; Protocol Last Admin: 08/09/24 08:08 Dose: 0.1 mg Documented By: TERRI Duloxetine HCl (Duloxetine Hcl 60 Mg Capsule.) 60 mg PO BID@050,1999 [facility] Last Admin: 08/09/24 05:26 Dose: 60 mg Documented By: SANTI Gabapentin (Gabapentin 400 Mg Capsule) 1,200 mg PO TID@0500,1200,1999 [facility] Last Admin: 08/09/24 05:26 Dose: 1,200 mg Documented By: SANTI Guaifenesin (Guaifenesin 100 Mg/5 Ml 5 Ml Liquid) 5 ml PO Q4H PRN PRN Reason: Cough Last Admin: 08/09/24 05:38 Dose: 5 ml Documented By: SANTI Azithromycin 500 mg/ Sodium (Chloride) 250 mls @ 125 mls/hr IV Q24H [facility] Last Admin: 08/09/24 08:07 Dose: 125 mls/hr Documented By: TERRI Lorazepam (Lorazepam 1 Mg Tablet) 1 mg PO BID PRN PRN Reason: Severe Anxiety Last Admin: 08/09/24 08:08 Dose: 1 mg Documented By: TERRI Comments: Administered early per Dr. Lee. Magnesium Hydroxide (Milk Of Magnesia 30 Ml Oral.Susp) 30 ml PO DAILY PRN PRN Reason: Constipation Last Admin: 08/07/24 16:15 Dose: 30 ml Documented By: WOLF Melatonin (Melatonin 3 Mg Tablet) 6 mg PO BEDTIME PRN PRN Reason: Insomnia Ondansetron HCl (Ondansetron Hcl 4 Mg/2 Ml Vial) 4 mg IVPUSH Q8H PRN PRN Reason: Nausea and Vomiting Oxcarbazepine (Oxcarbazepine 300 Mg Tablet) 600 mg PO BID@ [facility] Last Admin: 08/09/24 05:25 Dose: 600 mg Documented By: SANTI Prazosin HCl (Prazosin Hcl 1 Mg Capsule) 2 mg PO DAILY@1999 [facility]; Protocol Last Admin: 08/08/24 21:21 Dose: 2 mg Documented By: SANTI Prednisone (Prednisone 20 Mg Tablet) 40 mg PO DAILY [facility] Last Admin: 08/09/24 08:08 Dose: 40 mg Documented By: TERRI Sodium Chloride (0.9 % Sodium Chloride Flush 3 Ml Syringe) 3 ml IVFLUSH [facility] Last Admin: 08/09/24 08:08 Dose: 3 ml Documented By: TERRI Trazodone HCl (Trazodone Hcl 25 Mg Halftab) 25 mg PO BEDTIME PRN PRN Reason: Sleep Last Admin: 08/05/24 22:18 Dose: 25 mg Documented By: DESTINEE Verapamil HCl (Verapamil Hcl 120 Mg Tablet) 120 mg PO BID@ [facility]; Protocol Last Admin: 08/09/24 05:25 Dose: 120 mg Documented By: SANTI Labs 08/04/24 04:23 08/04/24 04:23 Assessment and Plan (1) Hypoxia: Status: Acute Assessment and Plan: 59F [facility] chronic hypoxemic respiratory failure due to COPD on 2-3 L supplemental oxygen at baseline, hypertension, mixed hyperlipidemia, history of CVA, trigeminal neuralgia, mood disorder, lower extremity edema who presented to the emergency department for evaluation of dyspnea Acute on chronic hypoxic respiratory failure due to Acute exacerbation of COPD and right-sided pneumonia: Continue scheduled and p.r.n. DuoNebs,switched to po steriods(might be contributing anxiety), iv antibiotics,Wean back to home oxygen. chest tight seems atypical-trop neg,ekg-not much st changes cardiology eval noted-atypical pain ,ekg's ,trops negative no intervention,continue to treat respiratory symptoms. seen by cardio-atypical pain. history of CVA/mixed hyperlipidemia On aspirin and statin Hypertension On Cardizem Trigeminal neuralgia baclofen,trileptal, Neurontin and Cymbalta. Mood disorder: anxiety might also contibuting for hyperventilation- clonidine ,ativan Morbid obesity Counseled regarding diet and exercise JUANITO Noncompliant with NIV at home dvt prophylaxis - lovenox full code reason for continued hospitalization: sob Quality Stroke Does the patient have a stroke diagnosis?: No VTE Prior VTE?: No VTE Risk Level:: Medical - moderate - high VTE Device Contraindication: Treatment Not Indicated VTE Drug Contraindication: N/A - Med Ordered
--- NOTE | 2024-08-09 11:20 | MHC.CM.PN ---
Per MD rounds patient not medically cleared for dc. CM will continue to follow.
[2024-08-09] MEDS: HYDROmorphone HCl 0.5 MG/0.5 ML SYRINGE IVPUSH (18:29)
--- NOTE | 2024-08-09 18:47 | PC.NURSE ---
1814- patient experiencing a coughing fit. Reports feeling a lump in her throat, but was able to clear her throat with coughing. Heart rate increased up to 160bpm, sustaining in 150's. SpO2 remained >90%. Lungs auscultated- dim throughout, no wheezing noted. Patient anxious and sitting on edge of bed. Dr. Lee contacted and arrived to bedside. Patient received PRN cough syrup and one time dose of IV dilaudid administered. See MAR for details. Patient guided with coping skills, grounding techniques, and emotional support. Patient responded well to interventions. RR improved to 20/min and HR sinus rhythm 80-90's.
[2024-08-09] MEDS: Aspirin Enteric Coated 81 MG TABLET.DR PO (21:23)
[2024-08-09] MEDS: Prazosin HCL 1 MG CAPSULE 2 MG PO (21:24)
[2024-08-09] MEDS: Atorvastatin Calcium 80 MG TABLET PO (21:24)
[2024-08-10] VITALS (10 sets, daily range): BP systolic 117–155; BP diastolic 57–82; PULSE 78–84; RESP 16–23; TEMP 36–36.7; O2SAT 92–98
[2024-08-10] MEDS: VerapamiL HCL 120 MG TABLET PO ×2 (04:30→21:32)
[2024-08-10] MEDS: Baclofen 10 MG TABLET 15 MG PO ×3 (04:30→21:30)
[2024-08-10] MEDS: OXcarbazepine 300 MG TABLET 600 MG PO ×2 (04:31→21:33)
[2024-08-10] MEDS: DULoxetine HCl 60 MG CAPSULE.DR PO ×2 (04:31→21:34)
[2024-08-10] MEDS: Gabapentin 400 MG CAPSULE 1200 MG PO ×3 (04:31→21:33)
[2024-08-10] MEDS: Calcium Oyster Shell Elemental 500 MG TABLET PO (04:31)
[2024-08-10] MEDS: guaiFENesin 100 MG/5 ML 5 ML LIQUID PO ×2 (04:31→17:11)
[2024-08-10] MEDS: Butalb/Acetamin/Caff 50/325/40 TABLET 1 TAB PO (05:13)
[2024-08-10] MEDS: cefTRIAXone sodium 1 GM VIAL IVPUSH (05:14)
[2024-08-10] MEDS: Albuterol/Iprat 2.5/0.5MG 3 ML AMPUL.NEB INHALE ×3 (07:37→23:32)
[2024-08-10] MEDS: LORazepam 1 MG TABLET PO ×2 (08:36→21:30)
[2024-08-10] MEDS: Azithromycin 500 MG in 0.9 % Sodium Chloride 250 ML 125 MG IV (08:36)
[2024-08-10] MEDS: HYDROcodone Bit/Acetam 5/325 TABLET 1 TAB PO ×2 (08:37→21:32)
[2024-08-10] MEDS: predniSONE 20 MG TABLET 40 MG PO (08:38)
[2024-08-10] MEDS: cloNIDine HCL 0.1 MG TABLET PO ×2 (08:38→21:32)
[2024-08-10] MEDS: 0.9 % Sodium Chloride Flush 3 ML SYRINGE IVFLUSH ×3 (08:39→21:34)
[2024-08-10] MEDS: Milk of Magnesia 30 ML ORAL.SUSP PO (08:47)
--- NOTE | 2024-08-10 10:43 | P.PNIM_ITS ---
Subjective Subjective Date of Service: 08/10/24 Interval History: coughing fit yesterday Physical Exam 2 Vital Signs: Vital Signs: Last Vital Signs Temp 96.8 F 08/10/24 08:00 Pulse 79 08/10/24 08:00 Resp 20 08/10/24 08:00 BP 138/66 08/10/24 08:00 Pulse Ox 96 08/10/24 08:00 O2 Del Method Nasal Cannula 08/10/24 08:00 O2 Flow Rate 3 08/10/24 08:00 FiO2 50 08/03/24 01:18 Oxygen Flow Rate 2 08/05/24 18:07 BMI result Body Mass Index 37.0 General: AO X 3, no acute distress Resp: CTA bilateral, no accessory muscles used CVS: S1,S2,RRR GI: soft, non tender, non distended Neuro: motor grossly intact, alert Psych: appropriate affect, appropriate insight Objective Data Active Medications Acetaminophen (Acetaminophen 325 Mg Tablet) 650 mg PO Q6H PRN PRN Reason: Pain, Mild (Pain Scale 1-3) Acetaminophen/Butalbital/Caffeine (Butalb/Acetamin/Caff 50/325/40 Tablet) 1 tab PO DAILY MRX1 PRN PRN Reason: Headache Last Admin: 08/10/24 05:13 Dose: 1 tab Documented By: SANTI Hydrocodone Bitart/Acetaminophen (Hydrocodone Bit/Acetam 5/325 Tablet) 1 tab PO BID [facility] Last Admin: 08/10/24 08:44 Dose: Not Given Documented By: FADUMO Non-Admin Reason: updated order, see MAR previously given Albuterol/Ipratropium (Albuterol/Iprat 2.5/0.5mg 3 Ml Ampul.Neb) 3 ml INHALE ONCE PRN PRN Reason: sob Aspirin (Aspirin Enteric Coated 81 Mg Tablet.) 81 mg PO DAILY@1999 [facility] Last Admin: 08/09/24 21:23 Dose: 81 mg Documented By: SANTI Atorvastatin Calcium (Atorvastatin Calcium 80 Mg Tablet) 80 mg PO DAILY@1999 [facility] Last Admin: 08/09/24 21:24 Dose: 80 mg Documented By: SANTI Baclofen (Baclofen 10 Mg Tablet) 15 mg PO DAILY@0500,1200,1999 [facility] Last Admin: 08/10/24 04:30 Dose: 15 mg Documented By: SANTI Calcium Carbonate (Calcium Carbonate 750 Mg Tab.Chew) 750 mg PO Q4H PRN PRN Reason: Heartburn Calcium Carbonate (Calcium Oyster Shell Elemental 500 Mg Tablet) 500 mg PO DAILY@0500 [facility] Last Admin: 08/10/24 04:31 Dose: 500 mg Documented By: SANTI Ceftriaxone Sodium (Ceftriaxone Sodium 1 Gm Vial) 1 gm IVPUSH Q24H [facility] Last Admin: 08/10/24 05:14 Dose: 1 gm Documented By: SANTI Clonidine HCl (Clonidine Hcl 0.1 Mg Tablet) 0.1 mg PO TID [facility]; Protocol Last Admin: 08/10/24 08:38 Dose: 0.1 mg Documented By: FADUMO Duloxetine HCl (Duloxetine Hcl 60 Mg Capsule.Dr) 60 mg PO BID@050,1999 [facility] Last Admin: 08/10/24 04:31 Dose: 60 mg Documented By: SANTI Enoxaparin Sodium (Enoxaparin Sodium 40 Mg/0.4 Ml Syringe) 40 mg SUBCUT Q24H [facility] Last Admin: 08/09/24 11:56 Dose: Not Given Documented By: TERRI Non-Admin Reason: Patient Refused Gabapentin (Gabapentin 400 Mg Capsule) 1,200 mg PO TID@0500,1199,1999 [facility] Last Admin: 08/10/24 04:31 Dose: 1,200 mg Documented By: SANTI Guaifenesin (Guaifenesin 100 Mg/5 Ml 5 Ml Liquid) 5 ml PO Q4H PRN PRN Reason: Cough Last Admin: 08/10/24 04:31 Dose: 5 ml Documented By: SANTI Azithromycin 500 mg/ Sodium (Chloride) 250 mls @ 125 mls/hr IV Q24H [facility] Last Admin: 08/10/24 08:36 Dose: 125 mls/hr Documented By: FADUMO Lorazepam (Lorazepam 1 Mg Tablet) 1 mg PO BID PRN PRN Reason: Severe Anxiety Last Admin: 08/10/24 08:36 Dose: 1 mg Documented By: FADUMO Magnesium Hydroxide (Milk Of Magnesia 30 Ml Oral.Susp) 30 ml PO DAILY PRN PRN Reason: Constipation Last Admin: 08/10/24 08:47 Dose: 30 ml Documented By: FADUMO Melatonin (Melatonin 3 Mg Tablet) 6 mg PO BEDTIME PRN PRN Reason: Insomnia Ondansetron HCl (Ondansetron Hcl 4 Mg/2 Ml Vial) 4 mg IVPUSH Q8H PRN PRN Reason: Nausea and Vomiting Oxcarbazepine (Oxcarbazepine 300 Mg Tablet) 600 mg PO BID@ [facility] Last Admin: 08/10/24 04:31 Dose: 600 mg Documented By: SANTI Prazosin HCl (Prazosin Hcl 1 Mg Capsule) 2 mg PO DAILY@1999 [facility]; Protocol Last Admin: 08/09/24 21:24 Dose: 2 mg Documented By: SANTI Prednisone (Prednisone 20 Mg Tablet) 40 mg PO DAILY [facility] Last Admin: 08/10/24 08:38 Dose: 40 mg Documented By: FADUMO Sodium Chloride (0.9 % Sodium Chloride Flush 3 Ml Syringe) 3 ml IVFLUSH QSHIFT [facility] Last Admin: 08/10/24 08:39 Dose: 3 ml Documented By: FADUMO Trazodone HCl (Trazodone Hcl 25 Mg Halftab) 25 mg PO BEDTIME PRN PRN Reason: Sleep Last Admin: 08/05/24 22:18 Dose: 25 mg Documented By: DESTINEE Verapamil HCl (Verapamil Hcl 120 Mg Tablet) 120 mg PO BID@ [facility]; Protocol Last Admin: 08/10/24 04:30 Dose: 120 mg Documented By: SANTI Labs 08/04/24 04:23 08/04/24 04:23 Assessment and Plan (1) Hypoxia: Status: Acute Assessment and Plan: 59F [facility] chronic hypoxemic respiratory failure due to COPD on 2-3 L supplemental oxygen at baseline, hypertension, mixed hyperlipidemia, history of CVA, trigeminal neuralgia, mood disorder, lower extremity edema who presented to the emergency department for evaluation of dyspnea Acute on chronic hypoxic respiratory failure due to Acute exacerbation of COPD and right-sided pneumonia: Continue scheduled and p.r.n. DuoNebs,switched to po steriods(might be contributing anxiety), iv antibiotics,Wean back to home oxygen. chest tight seems atypical-trop neg,ekg-not much st changes cardiology eval noted-atypical pain ,ekg's ,trops negative no intervention,continue to treat respiratory symptoms. seen by cardio-atypical pain. history of CVA/mixed hyperlipidemia On aspirin and statin Hypertension On Cardizem Trigeminal neuralgia baclofen,trileptal, Neurontin and Cymbalta. Mood disorder: anxiety might also contibuting for hyperventilation- clonidine ,ativan Morbid obesity Counseled regarding diet and exercise JUANITO Noncompliant with NIV at home dvt prophylaxis - lovenox full code reason for continued hospitalization: sob Quality Stroke Does the patient have a stroke diagnosis?: No VTE Prior VTE?: No VTE Risk Level:: Medical - moderate - high VTE Device Contraindication: Treatment Not Indicated VTE Drug Contraindication: N/A - Med Ordered
[2024-08-10] MEDS: HYDROmorphone HCl 0.5 MG/0.5 ML SYRINGE IVPUSH (12:23)
[2024-08-10] MEDS: Prazosin HCL 1 MG CAPSULE 2 MG PO (21:33)
[2024-08-10] MEDS: Aspirin Enteric Coated 81 MG TABLET.DR PO (21:34)
[2024-08-10] MEDS: Atorvastatin Calcium 80 MG TABLET PO (21:34)
[2024-08-11] MEDS: Baclofen 10 MG TABLET 15 MG PO ×2 (04:59→12:05)
[2024-08-11] MEDS: Gabapentin 400 MG CAPSULE 1200 MG PO ×2 (04:59→12:09)
[2024-08-11] MEDS: cefTRIAXone sodium 1 GM VIAL IVPUSH (04:59)
[2024-08-11] MEDS: DULoxetine HCl 60 MG CAPSULE.DR PO (04:59)
[2024-08-11] MEDS: VerapamiL HCL 120 MG TABLET PO (04:59)
[2024-08-11] MEDS: Calcium Oyster Shell Elemental 500 MG TABLET PO (04:59)
[2024-08-11] MEDS: OXcarbazepine 300 MG TABLET 600 MG PO (04:59)
[2024-08-11] MEDS: LORazepam 1 MG TABLET PO ×2 (05:03→13:49)
[2024-08-11] MEDS: Albuterol/Iprat 2.5/0.5MG 3 ML AMPUL.NEB INHALE ×2 (05:43→10:35)
[2024-08-11 05:46] VITALS: PULSE 86; RESP 24; O2SAT 98
[2024-08-11 07:46] VITALS: BP 138/65; PULSE 81; RESP 18; TEMP 36.3; O2SAT 96
--- NOTE | 2024-08-11 08:05 | PC.RT ---
Addendum entered by Aston Bobo, RT 08/11/24 08:19: pt biggest fear is being home alone..she told me this during our conversation this am Original Note: pt would like a 24 hour of no bipap.. before she goes home. pt not on bipap at home nor does he have sleep apnea. Her anxiety is what is causing her resp status to be compromised. she is no resp distress this am sats 97% on 3l at rest. pt not receiving any more nebulizers tx. pt says she sob upon exertion when she is even in bed moving, i will discuss this with hospitalist and medical case manager.
[2024-08-11] MEDS: predniSONE 20 MG TABLET 40 MG PO (08:52)
[2024-08-11] MEDS: 0.9 % Sodium Chloride Flush 3 ML SYRINGE IVFLUSH (08:53)
[2024-08-11] MEDS: HYDROcodone Bit/Acetam 5/325 TABLET 1 TAB PO (08:53)
[2024-08-11] MEDS: cloNIDine HCL 0.1 MG TABLET PO (08:53)
[2024-08-11] MEDS: Azithromycin 500 MG in 0.9 % Sodium Chloride 250 ML 125 MG IV (08:54)
--- NOTE | 2024-08-11 09:20 | HO.PM.IMPN ---
Subjective Subjective Date of Service: 08/11/24 Interval History: stable, anxious Physical Exam Vital Signs: Vital Signs: Last Vital Signs Temp 97.3 F 08/11/24 07:46 Pulse 81 08/11/24 07:46 Resp 18 08/11/24 07:46 BP 138/65 08/11/24 07:46 Pulse Ox 96 08/11/24 07:46 O2 Del Method Nasal Cannula 08/11/24 07:46 O2 Flow Rate 3.0 08/11/24 07:46 FiO2 50 08/03/24 01:18 Oxygen Flow Rate 2 08/05/24 18:07 BMI result Body Mass Index 37.0 General: AO X 3, no acute distress Resp: CTA bilateral, no accessory muscles used CVS: S1,S2,RRR GI: soft, non tender, non distended Neuro: motor grossly intact, alert Psych: appropriate affect, appropriate insight Objective Data Active Medications Acetaminophen (Acetaminophen 325 Mg Tablet) 650 mg PO Q6H PRN PRN Reason: Pain, Mild (Pain Scale 1-3) Acetaminophen/Butalbital/Caffeine (Butalb/Acetamin/Caff 50/325/40 Tablet) 1 tab PO DAILY MRX1 PRN PRN Reason: Headache Last Admin: 08/10/24 05:13 Dose: 1 tab Documented By: SANTI Hydrocodone Bitart/Acetaminophen (Hydrocodone Bit/Acetam 5/325 Tablet) 1 tab PO BID [facility] Last Admin: 08/11/24 08:53 Dose: 1 tab Documented By: FADUMO Albuterol/Ipratropium (Albuterol/Iprat 2.5/0.5mg 3 Ml Ampul.Neb) 3 ml INHALE ONCE PRN PRN Reason: sob Last Admin: 08/11/24 05:43 Dose: 3 ml Documented By: MARKO Albuterol/Ipratropium (Albuterol/Iprat 2.5/0.5mg 3 Ml Ampul.Neb) 3 ml INHALE RQ4H WHILE AWAKE PRN PRN Reason: sob Last Admin: 08/10/24 23:32 Dose: 3 ml Documented By: MARKO Aspirin (Aspirin Enteric Coated 81 Mg Tablet.) 81 mg PO DAILY@1999 [facility] Last Admin: 08/10/24 21:34 Dose: 81 mg Documented By: SULEIMAN Atorvastatin Calcium (Atorvastatin Calcium 80 Mg Tablet) 80 mg PO DAILY@1999 [facility] Last Admin: 08/10/24 21:34 Dose: 80 mg Documented By: SULEIMAN Baclofen (Baclofen 10 Mg Tablet) 15 mg PO DAILY@499,1199,1999 [facility] Last Admin: 08/11/24 04:59 Dose: 15 mg Documented By: SULEIMAN Calcium Carbonate (Calcium Carbonate 750 Mg Tab.Chew) 750 mg PO Q4H PRN PRN Reason: Heartburn Calcium Carbonate (Calcium Oyster Shell Elemental 500 Mg Tablet) 500 mg PO DAILY@499 [facility] Last Admin: 08/11/24 04:59 Dose: 500 mg Documented By: SULEIMAN Ceftriaxone Sodium (Ceftriaxone Sodium 1 Gm Vial) 1 gm IVPUSH Q24H [facility] Last Admin: 08/11/24 04:59 Dose: 1 gm Documented By: SULEIMAN Clonidine HCl (Clonidine Hcl 0.1 Mg Tablet) 0.1 mg PO TID [facility]; Protocol Last Admin: 08/11/24 08:53 Dose: 0.1 mg Documented By: FADUMO Duloxetine HCl (Duloxetine Hcl 60 Mg Capsule.) 60 mg PO BID@ [facility] Last Admin: 08/11/24 04:59 Dose: 60 mg Documented By: SULEIMAN Enoxaparin Sodium (Enoxaparin Sodium 40 Mg/0.4 Ml Syringe) 40 mg SUBCUT Q24H [facility] Last Admin: 08/10/24 11:48 Dose: Not Given Documented By: FADUMO Non-Admin Reason: Patient Refused Gabapentin (Gabapentin 400 Mg Capsule) 1,200 mg PO TID@499,1199,1999 [facility] Last Admin: 08/11/24 04:59 Dose: 1,200 mg Documented By: SULEIMAN Guaifenesin (Guaifenesin 100 Mg/5 Ml 5 Ml Liquid) 5 ml PO Q4H PRN PRN Reason: Cough Last Admin: 08/10/24 17:11 Dose: 5 ml Documented By: VENLA Azithromycin 500 mg/ Sodium (Chloride) 250 mls @ 125 mls/hr IV Q24H [facility] Last Admin: 08/11/24 08:54 Dose: 125 mls/hr Documented By: FADUMO Lorazepam (Lorazepam 1 Mg Tablet) 1 mg PO BID PRN PRN Reason: Severe Anxiety Last Admin: 08/11/24 05:03 Dose: 1 mg Documented By: SULEIMAN Magnesium Hydroxide (Milk Of Magnesia 30 Ml Oral.Susp) 30 ml PO DAILY PRN PRN Reason: Constipation Last Admin: 08/10/24 08:47 Dose: 30 ml Documented By: FADUMO Melatonin (Melatonin 3 Mg Tablet) 6 mg PO BEDTIME PRN PRN Reason: Insomnia Ondansetron HCl (Ondansetron Hcl 4 Mg/2 Ml Vial) 4 mg IVPUSH Q8H PRN PRN Reason: Nausea and Vomiting Oxcarbazepine (Oxcarbazepine 300 Mg Tablet) 600 mg PO BID@ [facility] Last Admin: 08/11/24 04:59 Dose: 600 mg Documented By: SULEIMAN Prazosin HCl (Prazosin Hcl 1 Mg Capsule) 2 mg PO DAILY@1999 [facility]; Protocol Last Admin: 08/10/24 21:33 Dose: 2 mg Documented By: SULEIMAN Prednisone (Prednisone 20 Mg Tablet) 40 mg PO DAILY [facility] Last Admin: 08/11/24 08:52 Dose: 40 mg Documented By: FADUMO Sodium Chloride (0.9 % Sodium Chloride Flush 3 Ml Syringe) [facility] Last Admin: 08/11/24 08:53 Dose: 3 ml Documented By: FADUMO Trazodone HCl (Trazodone Hcl 25 Mg Halftab) 25 mg PO BEDTIME PRN PRN Reason: Sleep Last Admin: 08/05/24 22:18 Dose: 25 mg Documented By: DESTINEE Verapamil HCl (Verapamil Hcl 120 Mg Tablet) 120 mg PO BID@ [facility]; Protocol Last Admin: 08/11/24 04:59 Dose: 120 mg Documented By: SULEIMAN Labs 08/04/24 04:23 08/04/24 04:23 Assessment and Plan (1) Hypoxia: Status: Acute Assessment and Plan: 59F [facility] chronic hypoxemic respiratory failure due to COPD on 2-3 L supplemental oxygen at baseline, hypertension, mixed hyperlipidemia, history of CVA, trigeminal neuralgia, mood disorder, lower extremity edema who presented to the emergency department for evaluation of dyspnea Acute on chronic hypoxic respiratory failure due to Acute exacerbation of COPD and right-sided pneumonia: Continue scheduled and p.r.n. DuoNebs,switched to po steriods(might be contributing anxiety), iv antibiotics,Weaned back to home oxygen. chest tight seems atypical-trop neg,ekg-not much st changes cardiology eval noted-atypical pain ,ekg's ,trops negative no intervention,continue to treat respiratory symptoms. seen by cardio-atypical pain. history of CVA/mixed hyperlipidemia On aspirin and statin Hypertension On Cardizem Trigeminal neuralgia baclofen,trileptal, Neurontin and Cymbalta. Mood disorder: anxiety might also contibuting for hyperventilation- clonidine ,ativan Morbid obesity Counseled regarding diet and exercise JUANITO Noncompliant with NIV at home pt dvt prophylaxis - lovenox full code reason for continued hospitalization: dispo planning Quality Stroke Does the patient have a stroke diagnosis?: No VTE Prior VTE?: No VTE Risk Level:: Medical - moderate - high VTE Device Contraindication: Treatment Not Indicated VTE Drug Contraindication: N/A - Med Ordered
[2024-08-11 11:47] VITALS: BP 138/65; PULSE 81; O2SAT 96
--- NOTE | 2024-08-11 12:24 | MHC.CM.PN ---
Patient requesting STR this AM. PT jaz completed w/ recommendation for pulm rehab/STR. Reviewed w/ patient who now declines. Prefers to go home self care and states she will arrange transportation. MD and RN aware.
--- NOTE | 2024-08-11 13:10 | PM.DS ---
DS: Providers Provider Date of Service: 08/11/24 Date of admission: 08/03/24 06:03 Date of discharge: 08/11/24 Primary care physician: ESTEBAN Christianson Consults: 08/05/24 09:44 Consult to Cardiology Routine Consulting Provider: [facility] [place] [facility] Reason for consultation: Chest pain Has provider been notified: No 08/07/24 10:41 Consult to Pulmonology Routine Consulting Provider: [facility] [place] [facility] Reason for consultation: acute hypoxemic respiratiry failure Has provider been notified: No DS: Diagnosis Discharge Diagnosis (1) Hypoxia: Status: Acute DS: Summary Hospital Course Hospital Course: from initial hpi: 59-year-old female with pertinent history of chronic hypoxemic respiratory failure due to COPD on 2-3 L supplemental oxygen at baseline, hypertension, mixed hyperlipidemia, history of CVA, trigeminal neuralgia, mood disorder, lower extremity edema who presents to the emergency department for evaluation of dyspnea. Patient states her symptoms started 1 day prior to presentation. Patient is having dyspnea which is worse with exertion. Also has been having cough with intermittent sputum production and associated wheezing. No improvement with home inhaler. She uses 1-2 L supplemental oxygen at rest and 3 L supplemental oxygen during exertion. Patient was found satting 70% on her home 3 L supplemental oxygen. No fever, chills, chest pain, palpitations, abdominal pain, leg edema, PND, orthopnea, changes in urinary or bowel habits. In the emergency department, patient initially required NIV. Imaging with right-sided pulmonary opacity. Patient was given systemic steroids, multiple DuoNeb treatments and empiric IV antibiotics in the ER. hospital course: Patient was admitted for acute on chronic hypoxic respiratory failure secondary to acute exacerbation of COPD and right-sided pneumonia. He was treated with IV ceftriaxone azithromycin, IV steroids and DuoNebs. Eventually weaned down to home oxygen level and oral steroids. Completed full course of antibiotics. On discharge we will continue 3 more days of prednisone. For mood disorder was continued on Ativan, clonidine was added, anxiety is contributing to dyspnea and should be addressed as well. For atypical chest pain ischemic workup was negative. Seen by Cardiology felt this was atypical. For history of CVA was continued on aspirin statin. For hypertension continued on diltiazem. For trigeminal neuralgia continued on baclofen, Trileptal, Neurontin, Cymbalta. For morbid obesity weight loss recommended. For JUANITO patient does not use CPAP at night due to trigeminal neuralgia. Patient was seen by physical therapy recommended short-term rehab, however patient declined. Patient is feeling better will be discharged home. Time Attestation Discharge Coordination Time (in mins): 32 Quality: Safe Use of Opioids Does Pt have an Active Cancer Diagnosis on the Problem List?: No Quality: Stroke Does the patient have a stroke diagnosis?: No Physical Exam Vital Signs: Vital Signs: Last Vital Signs Temp 97.3 F 08/11/24 07:46 Pulse 81 08/11/24 11:47 Resp 18 08/11/24 07:46 BP 138/65 08/11/24 11:47 Pulse Ox 96 08/11/24 11:47 O2 Del Method Nasal Cannula 08/11/24 07:46 O2 Flow Rate 3.0 08/11/24 07:46 FiO2 50 08/03/24 01:18 Oxygen Flow Rate 2 08/05/24 18:07 BMI result Body Mass Index 37.0 General: AO X 3, no acute distress Resp: CTA bilateral, no accessory muscles used CVS: S1,S2,RRR GI: soft, non tender, non distended Neuro: motor grossly intact, alert Psych: appropriate affect, appropriate insight DS: Data Data Completed and Pending Completed studies during hospitalization [Text1]: Procedures Assistance with Respiratory Ventilation, Less than 24 Consecutive Hours, Continuous Positive Airway Pressure (05/01/24) Discharge Plan Discharge Anticipated Discharge Date/Time: 08/11/24 13:03 Patient Disposition: Home, Self-Care Discharge Diagnosis: copd Referrals: Sirisha Huertas, DIRECT[employer] OF [employer] [Primary Care Provider] - 1 Week Discharge Medications: New clonidine HCl 0.1 mg Tablet 0.1 mg PO TID 90 Days Qty: 270 0RF Protocol: Hold for SBP< HOLD for SBP < : 90 prednisone 20 mg Tablet 40 mg PO DAILY Qty: 6 0RF hydrocodone-acetaminophen 5-325 mg Tablet 1 tab PO BID 20 Days Qty: 40 0RF Rx Instructions: Partial Fill upon patient request. Continued ipratropium-albuterol 0.5 mg-3 mg(2.5 mg base)/3 mL solution for nebulization 3 ml inhalation Q4H PRN (Reason: for dyspnea) Qty: 180 11RF baclofen 10 mg tablet 15 mg PO DAILY@0500,1200,2000 verapamil 120 mg tablet 120 mg PO BID@050,1999 lorazepam 0.5 mg tablet 0.5 mg PO DAILY PRN (Reason: MODERATE Anxiety) atorvastatin 80 mg tablet 80 mg PO DAILY@1999 [id number] 50-325-40 mg tablet 1 tab PO DAILY MRX1 PRN (Reason: Headache) hyoscyamine sulfate 0.125 mg tablet 0.25 mg PO Q6H PRN (Reason: Abdominal Discomfort) gabapentin 300 mg capsule 1,200 mg PO TID@0500,1199,1999 oxcarbazepine 600 mg tablet 600 mg PO BID@499,1999 lorazepam 1 mg tablet 1 mg PO DAILY PRN (Reason: SEVERE Anxiety) duloxetine 60 mg capsule,delayed release(DR/EC) 60 mg PO BID@499,1999 (DME) nebulizer and compressor Device See Rx Instructions .Route Qty: 1 0RF Rx Instructions: As directed albuterol sulfate 90 mcg/actuation HFA aerosol inhaler 2 puff inhalation Q4H PRN (Reason: Shortness Of Breath Or Wheezing) aspirin 81 mg tablet,delayed release (DR/EC) 81 mg PO DAILY@1999 calcium carbonate-vitamin D3 600 mg-5 mcg (200 unit) tablet 1 tab PO DAILY@050 prazosin 2 mg capsule 2 mg PO DAILY@1999 (DME) Oxygen Home Use Kit See Rx Instructions .Route Rx Instructions: As directed Discontinued hydrocodone-acetaminophen 5-325 mg tablet 1 tab PO DAILY Discharge Orders: Discharge Order (Routine); Ordered 08/11/24 Ordered By: Yovany Lee Diet: Advance to usual diet Activity on Discharge: As tolerated Stand Alone Forms: Patient Portal Discharge page Print Language: Iranian Care Plan Goals: recovery Health Concerns: copd Plan of Treatment: 3 more days prednisone, use nebulizers for coughing fits Assessment: see above
[2024-08-11 13:25] VITALS: BP 139/66; PULSE 87; RESP 20; TEMP 36.1; O2SAT 96
== END 2024-08-11 14:20 | disposition home or self-care (01) | DRG 139 ==
LOC: HO.ED 04:28 → HO.EDOVER 06:17 → HO.S3 08-04 11:05
PROVIDERS: Internal Medicine; Admitting Provider Student in an Organized Health Care Education/Training Program; Emergency Provider Emergency Medicine Emergency Medical Services; PCP Registered Nurse; Visit Provider Internal Medicine
DX: J18.9 Pneumonia, unspecified organism (principal); J96.21 Acute and chronic respiratory failure with hypoxia; Z99.81 Dependence on supplemental oxygen; J44.0 Chronic obstructive pulmonary disease with (acute) lower respiratory infection; J44.1 Chronic obstructive pulmonary disease with (acute) exacerbation; G50.0 Trigeminal neuralgia; E78.2 Mixed hyperlipidemia; I10 Essential (primary) hypertension; F41.0 Panic disorder [episodic paroxysmal anxiety]; G47.33 Obstructive sleep apnea (adult) (pediatric); E66.01 Morbid (severe) obesity due to excess calories; Z68.37 Body mass index [BMI] 37.0-37.9, adult; Z71.3 Dietary counseling and surveillance; Z20.822 Contact with and (suspected) exposure to COVID-19; Z91.199 Patient's noncompliance with other medical treatment and regimen due to unspecified reason; Z87.891 Personal history of nicotine dependence; Z79.82 Long term (current) use of aspirin; Z79.51 Long term (current) use of inhaled steroids; Z79.899 Other long term (current) drug therapy
CPT/HCPCS: 0241U; 36415; 71045; 80048; 80053; 82803; 83605; 83690; 83735; 83880; 84484; 85025; 85730; 87040; 87633; 93005; 93306; 94660; 97162; 99285; J0456; J0696; J1171; J2060; Q9957

== ENCOUNTER → 2024-08-03 01:21 | Outpatient (BNV) | payer BC, SELFPAY | PROVIDERS: Admitting Provider Student in an Organized Health Care Education/Training Program; Emergency Provider Emergency Medicine Emergency Medical Services; PCP Registered Nurse; Visit Provider Internal Medicine | DX: R00.0 Tachycardia, unspecified (principal) | CPT/HCPCS: 93010 ==

== ENCOUNTER → 2024-08-03 01:21 | Outpatient (BNV) | payer BC, SELFPAY | PROVIDERS: Emergency Provider Emergency Medicine Emergency Medical Services; Visit Provider Radiology Neuroradiology | DX: R91.8 Other nonspecific abnormal finding of lung field (principal) | CPT/HCPCS: 71045 ==

== ENCOUNTER → 2024-08-03 04:26 | Outpatient (BNV) | payer BC, SELFPAY | PROVIDERS: Emergency Provider Emergency Medicine Emergency Medical Services; Visit Provider Student in an Organized Health Care Education/Training Program | DX: R09.02 Hypoxemia (principal) | CPT/HCPCS: 99222; 99231; 99232; 99233; 99499 ==

== ENCOUNTER 2024-08-03 06:03 | Outpatient (BNV) | payer BC, SELFPAY | END 2024-08-07 07:00 | PROVIDERS: Admitting Provider Student in an Organized Health Care Education/Training Program; Emergency Provider Emergency Medicine Emergency Medical Services; PCP Registered Nurse; Visit Provider Internal Medicine | DX: I35.2 Nonrheumatic aortic (valve) stenosis with insufficiency (principal) | CPT/HCPCS: 93306 ==

== ENCOUNTER 2024-08-03 06:03 | Outpatient (BNV) | payer BC, SELFPAY | END 2024-08-05 10:08 | PROVIDERS: Admitting Provider Student in an Organized Health Care Education/Training Program; Emergency Provider Emergency Medicine Emergency Medical Services; PCP Registered Nurse; Visit Provider Internal Medicine | DX: R00.0 Tachycardia, unspecified (principal) | CPT/HCPCS: 93010 ==

== ENCOUNTER 2024-08-03 06:03 | Outpatient (BNV) | payer BC, SELFPAY | END 2024-08-06 12:59 | PROVIDERS: Admitting Provider Student in an Organized Health Care Education/Training Program; Emergency Provider Emergency Medicine Emergency Medical Services; PCP Registered Nurse; Visit Provider Internal Medicine | DX: R00.0 Tachycardia, unspecified (principal) | CPT/HCPCS: 93010 ==

== ENCOUNTER → 2024-08-03 06:03 | Outpatient (BNV) | payer BC, SELFPAY | PROVIDERS: Admitting Provider Student in an Organized Health Care Education/Training Program; Emergency Provider Emergency Medicine Emergency Medical Services; PCP Registered Nurse; Visit Provider Internal Medicine Pulmonary Disease | DX: J44.1 Chronic obstructive pulmonary disease with (acute) exacerbation (principal); J96.11 Chronic respiratory failure with hypoxia | CPT/HCPCS: 99232 ==

== ENCOUNTER → 2024-08-03 06:03 | Outpatient (BNV) | payer BC, SELFPAY | PROVIDERS: Admitting Provider Student in an Organized Health Care Education/Training Program; Emergency Provider Emergency Medicine Emergency Medical Services; PCP Registered Nurse; Visit Provider Psychiatry & Neurology Psychiatry | DX: F41.0 Panic disorder [episodic paroxysmal anxiety] (principal); G50.0 Trigeminal neuralgia | CPT/HCPCS: 99222 ==

== ENCOUNTER → 2024-08-03 06:03 | Outpatient (BNV) | payer BC, SELFPAY | PROVIDERS: Admitting Provider Student in an Organized Health Care Education/Training Program; Emergency Provider Emergency Medicine Emergency Medical Services; PCP Registered Nurse; Visit Provider Internal Medicine | DX: R07.2 Precordial pain (principal); J44.1 Chronic obstructive pulmonary disease with (acute) exacerbation | CPT/HCPCS: 99223 ==

== ENCOUNTER 2024-08-22 14:53 | Inpatient (IN) | payer BC, SELFPAY ==
--- NOTE | ~2024-08-22 | XR_ITS ---
CLINICAL HISTORY: cough Single view of the chest. COMPARISON: XR chest dated 08/03/24 at 01:35 EST FINDINGS: Normal heart and mediastinal contours. No consolidation. Patchy bibasilar opacities, [id number]-left. No pleural effusion or pneumothorax. No fracture identified. IMPRESSION: 1. Patchy bibasilar opacities, eukub-qzrqvrt-fbze-left, may represent atelectasis or developing pneumonia. This document has been electronically signed by: Ziggy Khan MD on 08/22/2024 16:57:51
[2024-08-22 14:57] VITALS: BP 151/86; PULSE 82; RESP 18; TEMP 36.5; O2SAT 99; BMI 38.3
--- NOTE | 2024-08-22 14:58 | ED_ITS ---
HPI - General Adult General Chief complaint: Dyspnea Stated complaint: SOB Time Seen by Provider: 08/22/24 15:51 Source: patient Mode of arrival: ambulatory Limitations: no limitations History of Present Illness ED Provider: Dr. Bakari Escalona HPI narrative: 59-year-old female with pertinent history of chronic hypoxemic respiratory failure due to COPD on 2-3 L supplemental oxygen at baseline, hypertension, mixed hyperlipidemia, history of CVA, left-sided trigeminal neuralgia, mood disorder, lower extremity edema who presents to the emergency department for evaluation of increased shortness of breath of the last 1-2 days with severe shortness of breath prior to coming to the emergency department. Patient states that over the last 12 hours she was used her DuoNeb every 2 hours (6 times) with no relief for her symptoms. The patient states that she was having chest tightness and severe shortness of breath. The patient was at the transfusion center and was receiving IV IG for low immunoglobulin therapy. She also received Solu-Medrol 80 mg IV during the transfusion. Patient states that she was wearing oxygen and walk less than 10 ft to get an x-ray and became very winded and short of breath. She also states that the infusion therapist did talk to Dr. Henriquez regarding the patient's frequent use of her nebulizer and Dr. Henriquez sent a prescription for steroids and antibiotics to the patient's pharmacy. Patient was recently hospitalized from 08/03/2024 until 08/08/2024 for COPD exacerbation. Related Data Home Medications ?Medication ?Instructions ?Recorded ?Confirmed atorvastatin 80 mg tablet 80 mg PO DAILY@199903/04/23 08/03/24 vsqgxwtgyi-gcfiglblqmulo-dohfvfwf 1 tab PO DAILY MRX1 PRN Headache 03/04/23 08/03/24 50 mg-325 mg-40 mg tablet duloxetine 60 mg capsule,delayed 60 mg PO BID@0500,199903/04/23 08/03/24 release gabapentin 300 mg capsule 1,200 mg PO TID@0500,1199,199903/04/23 08/03/24 hyoscyamine sulfate 0.125 mg tablet 0.25 mg PO Q6H PRN Abdominal 03/04/23 08/03/24 Discomfort lorazepam 1 mg tablet 1 mg PO DAILY PRN SEVERE Anxiety 03/04/23 08/03/24 oxcarbazepine 600 mg tablet 600 mg PO BID@050,199903/04/23 08/03/24 Oxygen Home Use 04/16/23 03/10/24 prazosin 2 mg capsule 2 mg PO DAILY@199904/16/23 08/03/24 albuterol sulfate 90 mcg/actuation 2 puff inhalation Q4H PRN 01/31/24 08/03/24 aerosol inhaler Shortness Of Breath Or Wheezing aspirin 81 mg tablet,delayed 81 mg PO DAILY@199905/22/24 08/03/24 release calcium 600 mg (as 1 tab PO DAILY@05006/20/24 08/03/24 carbonate)-vitamin D3 5 mcg (200 unit) tablet baclofen 10 mg tablet 15 mg PO DAILY@050,1199,199907/02/24 08/03/24 verapamil 120 mg tablet 120 mg PO BID@499,199907/02/24 08/03/24 lorazepam 0.5 mg tablet 0.5 mg PO DAILY PRN MODERATE 08/03/24 08/03/24 Anxiety Previous Rx's ?Medication ?Instructions ?Recorded nebulizer and compressor #1 ea 12/16/23 ipratropium 0.5 mg-albuterol 3 mg 3 ml inhalation Q4H PRN for 03/02/24 (2.5 mg base)/3 mL nebulization dyspnea #180 mL soln clonidine HCl 0.1 mg tablet 0.1 mg PO TID 90 days #270 tabs 08/11/24 hydrocodone 5 mg-acetaminophen 325 1 tab PO BID 20 days #40 tabs 08/11/24 mg tablet prednisone 20 mg tablet 40 mg (2 x 20 mg) PO DAILY #6 tabs 08/11/24 doxycycline hyclate 100 mg capsule 100 mg PO BID 10 days #20 caps 08/22/24 prednisone 10 mg tablet See Rx Instructions PO DAILY 18 08/22/24 days #63 tabs Allergies Allergy/AdvReac Type Severity Reaction Status Date / Time Iodinated Contrast Media Allergy Intermediate HIVES Verified 08/22/24 15:00 [IV CONTRAST] latex [LATEX] Allergy Unknown RASH Verified 08/22/24 15:00 adhesive tape Allergy Rash Verified 08/22/24 15:00 morphine [MORPHINE] AdvReac Unknown VOMITING Verified 08/22/24 15:00 Review of Systems 2 Review of Systems: Yes all other systems are reviewed and are negative PMFSH Past Medical History Medical History (Updated 08/22/24 @ 20:18 by Bakari Escalona MD) Panic disorder Hypertension Chronic hypercapnic respiratory failure Aortic stenosis Obesity (BMI 30-39.9) Asthma Acute exacerbation of chronic obstructive pulmonary disease Chronic lung disease Hypogammaglobulinemia Smoker JUANITO (obstructive sleep apnea) Allergies Elevated troponin COPD (chronic obstructive pulmonary disease) Trigeminal neuralgia Pulmonary nodules Mixed hyperlipidemia Peripheral neuropathy Tobacco use disorder Mood disorder Surgical History History of esophagogastroduodenoscopy (EGD) History of colonoscopy History of lumbar discectomy History of tubal ligation History of excision of mass History of shoulder surgery Social History Social History Household Members: Spouse Housing: House Do you presently have visiting nurse or other home services: No Alcohol intake: current Alcohol intake frequency: holidays/special occasions only Alcohol type: hard liquor Comment: patient declines bed alarm, ongoing, declines HFR protocol Patient Tobacco Use Status: Former Tobacco user Tobacco use type: Cigarette Cigarette Packs Per Day: 4 Cigarettes Per Day: 80.0 Years Smoked: 40 Smoked in Last 30 Days: No e-Cigarette/Vaping Use: Former Use Second Hand Smoke Exposure: No Use of substances other than those prescribed or required for medical reasons: Yes Substance Use Type: Marijuana Substance Use Frequency: Daily Advance Directives: Yes Advance Directives on File: Yes Advance Directives Date on File: 03/09/23 Patient : No service: No Physical Exam ED Vital Signs: Vital Signs - 24 hr 08/22/24 14:57 08/22/24 16:04 08/22/24 16:07 Temperature 97.7 F Pulse Rate 82 75 Respiratory Rate 18 22 H 26 H Blood Pressure 151/86 H Pulse Oximetry 99 Oxygen Delivery Method Room Air Oxygen Flow Rate 08/22/24 16:56 08/22/24 17:12 08/22/24 19:00 Temperature 98.0 F Pulse Rate 87 83 88 Respiratory Rate 20 21 H 20 Blood Pressure 156/78 H 144/64 H Pulse Oximetry 97 98 Oxygen Delivery Method BiPAP Nasal Cannula Oxygen Flow Rate 3 BMI result Body Mass Index 38.3 Vital signs revealed an elevated respiratory rate otherwise unremarkable Exam: General: Awake, patient is in moderate to severe respiratory distress, talking in 1-2 word sentences with tachypnea and appears dyspneic Head: Normocephalic, atraumatic EENT: PERRL, Lids normal, sclera normal, conjunctiva normal, nose normal , ears normal, throat without erythema or exudates Neck: Supple, no adenopathy Lung: Patient had diminished breath sounds bilaterally with diffuse wheezing and diffuse rhonchi Chest: symmetric movement, nontender Heart: regular rate and rhythm, normal S1, S2 no murmurs or rubs Abdomen: soft, non-tender, nondistended, normal bowel sounds Back: no vertebral tenderness, no CVAT Extremities: no deformities, moves all extremities symmetrically Neuro: Awake, alert, oriented, cranial nerves intact, moves all extremities symmetrically Psych: Pleasant, cooperative Course Course Course Narrative: RME, this is a rapid medical exam performed by Black Ramirez please refer to primary provider for complete H&P- 59-year-old female with past medical history significant for end-stage COPD on 2-3 L via nasal cannula, hypogammaglobulinemia presents for evaluation of shortness of breath. She follows with Dr. Henriquez who saw her in the office today. He administered a DuoNeb and IV Solu-Medrol and brought the patient down to the ER. The patient's vital signs in triage are stable. Plan for labs and a chest x-ray Medications Administered Generic Name Dose Route Start Last Admin Trade Name Freq PRN Reason Stop Dose Admin Azithromycin 500 mg/ Sodium 250 mls @ 125 mls/hr 08/22/24 19:46 08/22/24 20:01 Chloride IV 08/22/24 21:45 125 mls/hr ONCE ONE Administration Discontinued Medications Generic Name Dose Route Start Last Admin Trade Name Freq PRN Reason Stop Dose Admin Albuterol Sulfate 2.5 mg/ 5 mg 08/22/24 17:12 08/22/24 17:16 Albuterol Sulfate 2.5 mg INHALE 08/22/24 17:13 5 mg ONCE ONE Administration Ceftriaxone Sodium 1 gm 08/22/24 19:46 08/22/24 20:01 Ceftriaxone Sodium 1 Gm Vial IVPUSH 08/22/24 19:47 1 gm ONCE ONE Administration Albuterol Sulfate 5 mg/ 0 mg 08/22/24 16:07 08/22/24 16:16 Albuterol/Ipratropium 3 ml INHALE 08/22/24 16:08 7.5 each ONCE ONE Administration Lorazepam 1 mg 08/22/24 19:32 08/22/24 19:44 Lorazepam 1 Mg Tablet PO 08/22/24 19:33 1 mg ONCE ONE Administration Oxycodone HCl 5 mg 08/22/24 19:32 08/22/24 19:44 Oxycodone Hcl Immed Release 5 Mg Tablet PO 08/22/24 19:33 5 mg ONCE STA Administration Medical Decision Making Medical Decision Making [facility] Narrative: 59-year-old female with pertinent history of chronic hypoxemic respiratory failure due to COPD on 2-3 L supplemental oxygen at baseline, hypertension, mixed hyperlipidemia, history of CVA, left-sided trigeminal neuralgia, mood disorder, lower extremity edema who presents to the emergency department for evaluation of increased shortness of breath of the last 1-2 days with severe shortness of breath prior to coming to the emergency department. Patient states that over the last 12 hours she was used her DuoNeb every 2 hours (6 times) with no relief for her symptoms. The patient states that she was having chest tightness and severe shortness of breath. The patient was at the transfusion center and was receiving IV IG. She also received Solu-Medrol 80 mg IV during the transfusion. She walk less than 10 ft to get an x-ray and became very dyspneic and short of breath. Vital signs revealed an elevated respiratory rate. Physical examination revealed that she was in moderate to severe respiratory distress, talking 1-2 word sentences, she was tachypneic and dyspneic appearing. Lung exam revealed diminished breath sounds bilaterally with diffuse wheezing, rales and rhonchi. Patient was placed on BiPAP immediately and given albuterol 7.5 mg and ipratropium 0.5 mg nebulizer through the BiPAP machine. 20:11 Differential diagnosis: ?Includes but is not limited to pneumonia, bronchitis, flare-up of chronic lung disease, anemia, electrolyte abnormalities Course: 21:10 The patient required a 2nd dose of albuterol 5 mg nebulized. Patient was kept on BiPAP for 3 hours and then this was discontinued. Patient states she feels like she was at her baseline at this time. My interpretation of the patient's laboratory evaluation is as follows: CBC was normal. Glucose elevated 117. Lactic acid was normal 1.9. COVID-19, influenza and RSV tests were negative. VBG revealed a pH of 7.36, pCO2 of 51 and a bicarb of 29. Chest x-ray concerning for possible bilateral lower lobe infiltrates. I did discuss the patient's presentation with the covering hospitalist, Dr. Nolan the patient will be admitted for further treatment. Admission/Observation Consideration of admission/observation: Escalation of care including admission/observation considered (Yes) Consult Healthcare Provider Management of the patient was discussed with: Hospitalist Lab Data [facility] Lab Attestation statement: I reviewed the patient's lab results. 08/22/24 15:30 08/22/24 15:30 Labs: Lab Results 08/22/24 08/22/24 Range/Units 15:30 15:41 WBC 11.2 H (4.8-10.8) X10*3/uL RBC 3.93 L (4.20-5.50) X10*6/uL Hgb 12.5 (12.0-16.0) g/dl Hct 37.7 (37.0-47.0) % MCV 95.9 (80.0-98.0) fL MCH 31.8 (27.0-33.0) pg MCHC 33.2 (31.0-35.0) g/dl RDW 13.8 (11.0-16.0) % Plt Count 336 (160-400) X10*3/uL MPV 8.7 L (9.4-12.3) fL Immature Gran % (Auto) 0.4 (0.0-0.4) % Neut % (Auto) 82.2 H (45-73) % Lymph % (Auto) 5.9 L (20-40) % [place] % (Auto) 9.4 (2-11) % Eos % (Auto) 1.7 (0-4) % Baso % (Auto) 0.4 (0-2) % Lymph # (Auto) 0.7 L (1.2-4.9) X10*3/uL [place] # (Auto) 1.1 (0.1-1.2) X10*3/uL Eos # (Auto) 0.2 (0.0-0.4) X10*3/uL Baso # (Auto) 0.0 (0.0-0.2) X10*3/uL Abs Immat Gran (auto) 0.04 H (0.00-0.03) X10*3/uL Absolute Neuts (auto) 9.2 H (2.0-8.3) x10*3/uL Absolute Nucleated RBC 0.000 (0.0-0.012) X10*3/uL Nucleated RBC % (auto) 0.0 (0.0-0.2) /100WBC VBG pH 7.36 (7.32-7.43) VBG pCO2 51 mmHg VBG pO2 48 mmHg VBG HCO3 29 H (22-26) mmol/L VBG O2 Saturation 79.0 % VBG Base Excess 3.6 mmol/L Sodium 140 (135-145) mmol/L Potassium 3.7 (3.3-5.1) mmol/L Chloride 104 (96-108) mmol/L Carbon Dioxide 26 (22-29) mmol/L Anion Gap 14 (12-20) BUN 14 (9-16) mg/dL Creatinine 0.74 (0.5-1.4) mg/dL Estim Creat Clear Calc 79.2 Estimated GFR > 60 Random Glucose 117 H (60-115) mg/dL Lactic Acid 1.9 (0.5-2.0) mmol/L Calcium 9.6 (8.4-10.2) mg/dL Total Bilirubin 0.4 (0.0-1.0) mg/dL AST 29 (5-31) U/L ALT 24 (0-31) U/L Alkaline Phosphatase 58 (39-117) U/L B-Natriuretic Peptide 42 (<100) pg/mL Total Protein 8.5 H (6.5-8.0) g/dL Albumin 4.0 (3.5-5.0) g/dL Lipase 34 (8-78) U/L Influenza Type A (PCR) NEGATIVE (Negative) Influenza Type B (PCR) NEGATIVE (Negative) RSV RNA Qual (PCR) NEGATIVE (Negative) SARS-CoV-2 RNA (RT-PCR) NEGATIVE (Negative) Independent Interpretation I performed an independent interpretation of an: Plain X-Ray Interpretation: My independent interpretation patient's one-view chest x-ray is as follows: Very subtle lower lobe infiltrates Radiology Impression Discussion of test interpretation with radiology: I have reviewed the radiologist's reading. Radiologist Impression: Single view of the chest. COMPARISON: XR chest dated 08/03/24 at 01:35 EST FINDINGS: Normal heart and mediastinal contours. No consolidation. Patchy bibasilar opacities, apmvw-mxshfvr-gdyb-left. No pleural effusion or pneumothorax. No fracture identified. IMPRESSION: 1. Patchy bibasilar opacities, jnoff-xezqogl-hlbp-left, may represent atelectasis or developing pneumonia. This document has been electronically signed by: Ziggy Khan MD on 08/22/2024 16:57:51 Dictated By: Ziggy Khan MD External Record Review External record reviewed: Inpatient record Chronic Conditions Patient?s care impacted by: Other (Chronic lung disease) Critical Care Time Critical Care Time Critical Care Time: Yes Total Critical Care Time: 45 Attestation: Critical Care: The patient was critically ill with a high probability of imminent or life threatening deterioration. I spent greater than 30 minutes of discontinuous time evaluating the patient,delivering critical care at the bedside, discussing and evaluating pertinent data with consultants. Critical care time does not include time spent performing separately billable procedures or teaching. Total time spent performing critical care was 45 minutes. Discharge Plan Discharge Patient Disposition: Admitted As Inpatient Prescriptions: No Action ipratropium-albuterol 0.5 mg-3 mg(2.5 mg base)/3 mL solution for nebulization 3 ml inhalation Q4H PRN (Reason: for dyspnea) Qty: 180 11RF prednisone 10 mg tablet See Rx Instructions PO DAILY 18 Days Qty: 63 0RF Rx Instructions: PO daily; Take 6 tabs daily x 3 days, then 5 tabs x 3 days, then 4 tabs x 3 days, then 3 tabs x 3 days, then 2 tabs daily x 3 days, then 1 tab x 3 days to complete. doxycycline hyclate 100 mg capsule 100 mg PO BID 10 Days Qty: 20 0RF baclofen 10 mg tablet 15 mg PO DAILY@0500,1200,2000 verapamil 120 mg tablet 120 mg PO BID@0500,2000 lorazepam 0.5 mg tablet 0.5 mg PO DAILY PRN (Reason: MODERATE Anxiety) clonidine HCl 0.1 mg Tablet 0.1 mg PO TID 90 Days Qty: 270 0RF Protocol: Hold for SBP< HOLD for SBP < : 90 prednisone 20 mg Tablet 40 mg PO DAILY Qty: 6 0RF hydrocodone-acetaminophen 5-325 mg Tablet 1 tab PO BID 20 Days Qty: 40 0RF Rx Instructions: Partial Fill upon patient request. atorvastatin 80 mg tablet 80 mg PO DAILY@1999 otxsgwrefb-uzjlybwzwfqwz-rpup 50-325-40 mg tablet 1 tab PO DAILY MRX1 PRN (Reason: Headache) hyoscyamine sulfate 0.125 mg tablet 0.25 mg PO Q6H PRN (Reason: Abdominal Discomfort) gabapentin 300 mg capsule 1,200 mg PO TID@0500,1200,1999 oxcarbazepine 600 mg tablet 600 mg PO BID@050,1999 lorazepam 1 mg tablet 1 mg PO DAILY PRN (Reason: SEVERE Anxiety) duloxetine 60 mg capsule,delayed release(DR/EC) 60 mg PO BID@050,1999 (DME) nebulizer and compressor Device See Rx Instructions .Route Qty: 1 0RF Rx Instructions: As directed albuterol sulfate 90 mcg/actuation HFA aerosol inhaler 2 puff inhalation Q4H PRN (Reason: Shortness Of Breath Or Wheezing) aspirin 81 mg tablet,delayed release (DR/EC) 81 mg PO DAILY@1999 calcium carbonate-vitamin D3 600 mg-5 mcg (200 unit) tablet 1 tab PO DAILY@0500 prazosin 2 mg capsule 2 mg PO DAILY@1999 (DME) Oxygen Home Use Kit See Rx Instructions .Route Rx Instructions: As directed Print Language: Upper Sorbian
[2024-08-22 15:38] LABS: MANUAL DIFF FLAG NO
[2024-08-22 15:43] LABS: Basophils Percent Auto 0.4 % (0-2); Eosinophils Absolute Auto 0.2 X10*3/uL (0.0-0.4); Eosinophils Percent Auto 1.7 % (0-4); Hematocrit 37.7 % (37.0-47.0); Hemoglobin 12.5 g/dl (12.0-16.0); Imm Gran Abs Auto 0.04 X10*3/uL (0.00-0.03); Imm Gran Pct Auto 0.4 % (0.0-0.4); Lymphocytes Absolute Auto 0.7 X10*3/uL (1.2-4.9); Lymphocytes Percent Auto 5.9 % (20-40); Mean Corpuscular HGB Conc 33.2 g/dl (31.0-35.0); Mean Corpuscular Hemoglobin 31.8 pg (27.0-33.0); Mean Corpuscular Volume 95.9 fL (80.0-98.0); Mean Platelet Volume 8.7 fL (9.4-12.3); Monocytes Absolute Auto 1.1 X10*3/uL (0.1-1.2); Monocytes Percent Auto 9.4 % (2-11); Neutrophils Absolute Auto 9.2 x10*3/uL (2.0-8.3); Neutrophils Percent Auto 82.2 % (45-73); Platelet Count 336 X10*3/uL (160-400); Red Blood Count 3.93 X10*6/uL (4.20-5.50); Red Cell Distribution Width 13.8 % (11.0-16.0); White Blood Count 11.2 X10*3/uL (4.8-10.8)
--- NOTE | 2024-08-22 15:44 | ECG_ITS ---
Test Reason : SOB Blood Pressure : */* mmHG Vent. Rate : 77 BPM Atrial Rate : 77 BPM P-R Int : 140 ms QRS Dur : 86 ms QT Int : 390 ms P-R-T Axes : 66 70 70 degrees QTcB Int : 441 ms Normal sinus rhythm Normal ECG When compared with ECG of 06-Aug-2024 13:12, No significant changes seen Referred By: Christopher Ramirez Electronically Signed By: ANGEL HARRISON
[2024-08-22 15:47] LABS: Venous Blood Gas Refer to POC result
[2024-08-22 15:48] LABS: VBG Base Excess 3.6 mmol/L; VBG HCO3 29 mmol/L (22-26); VBG pCO2 51 mmHg; VBG pH 7.36 (7.32-7.43); VBG pO2 48 mmHg
[2024-08-22 15:59] LABS: Lactic Acid 1.9 mmol/L (0.5-2.0)
[2024-08-22 16:04] VITALS: PULSE 78; RESP 22; O2SAT 98
[2024-08-22 16:04] LABS: Alanine Aminotransferase 24 U/L (0-31); Anion Gap 14 (12-20); Aspartate Amino Transferase 29 U/L (5-31); Bilirubin Total 0.4 mg/dL (0.0-1.0); Blood Urea Nitrogen 14 mg/dL (9-16); Calcium 9.6 mg/dL (8.4-10.2); Carbon Dioxide 26 mmol/L (22-29); Chloride 104 mmol/L (96-108); Creatinine Clr Calc Pharmacy 79.2; Estimated Glomerular Filt Rate > 60; Glucose Random 117 mg/dL (60-115); Lipase 34 U/L (8-78); Potassium 3.7 mmol/L (3.3-5.1); Sodium 140 mmol/L (135-145); Total Protein 8.5 g/dL (6.5-8.0)
[2024-08-22 16:07] VITALS: PULSE 75; RESP 26; O2SAT 98
[2024-08-22] MEDS: Albuterol Sulfate 5 MG, Albuterol/Iprat 2.5/0.5MG 3 ML 3 ML INHALE (16:16)
[2024-08-22 16:19] LABS: Influenza A PCR NEGATIVE (Negative); Influenza B PCR NEGATIVE (Negative); Resp Syncy Virus RNA Qual PCR NEGATIVE (Negative); SARS COV2 PCR INHOUSE NEGATIVE (Negative)
[2024-08-22 16:36] LABS: B Type Natriuretic Peptide 42 pg/mL (<100)
[2024-08-22 16:56] VITALS: BP 156/78; PULSE 87; RESP 20; O2SAT 97
[2024-08-22 17:12] VITALS: PULSE 83; RESP 21; O2SAT 96
[2024-08-22] MEDS: Albuterol Sulfate 2.5 MG, Albuterol Sulfate (0.083%) 2.5 MG 5 MG INHALE (17:16)
[2024-08-22 17:40] LABS: Alkaline Phosphatase 58 U/L (39-117)
[2024-08-22 19:00] VITALS: BP 144/64; PULSE 88; RESP 20; TEMP 36.7; O2SAT 98
--- NOTE | 2024-08-22 19:08 | PC.NURSE ---
this rn assumed care of pt, pt a&ox4, respirations even and unlabored, pt on 3L nasal cannula sating 98%. pt requesting purewick at this time, purewick placed on pt. vss.
[2024-08-22] MEDS: LORazepam 1 MG TABLET PO (19:44)
[2024-08-22] MEDS: oxyCODONE HCl Immed Release 5 MG TABLET PO (19:44)
[2024-08-22] MEDS: cefTRIAXone sodium 1 GM VIAL IVPUSH (20:01)
[2024-08-22] MEDS: Azithromycin 500 MG in 0.9 % Sodium Chloride 250 ML 125 MG IV (20:01)
--- NOTE | 2024-08-22 21:28 | PM.IMHP ---
History of Present Illness Date of Service: 08/22/24 Chief Complaint: SOB 59-year-old female with a past medical history HTN, COPD, chronic respiratory failure on home oxygen, aortic stenosis, trigeminal neuralgia, neuropathy, HX CVA, mood disorder presented to the hospital today with a chief complaint of shortness of breath. Patient reported that for the past 2 days she has been having shortness of breath chest pain gradually worsening. Since last night she used her home inhaler/nebulizer at least 7 times with no significant improvement. Today she went to her infusion center for IVIG infusion which she gets every month; post infusion she felt more shortness of breath. Denies any reaction to the infusion. Subsequently sent her to the hospital for further evaluation. Patient denies any chest pain or palpitations. Reports having cough with occasional sputum production. Denies any fevers. Denies any sick contacts. Patient reports that she got lung infection in November of 2023 and since then she has been having at least 15 admissions to the hospital for COPD exacerbation. Follows with pulmonology as outpatient-Dr. Martinez Mcfarlane. Reports that she was recently discharged from the hospital on August 11. Today she also called her multifocal button generator office and who gave her prescriptions for steroids and antibiotics. Patient reported during the prior admissions to the hospital she was on BiPAP but never intubated. Review of all other systems is negative except mentioned above ER course: Per ER team, patient on presentation noted to be in acute shortness of breath, mild respiratory distress, speaking in 1 word sentences; patient was placed on the BiPAP with significant improvement in the respiratory status. [facility] Medical History (Updated 08/22/24 @ 20:18 by Bakari Escalona MD) Panic disorder Hypertension Chronic hypercapnic respiratory failure Aortic stenosis Obesity (BMI 30-39.9) Asthma Acute exacerbation of chronic obstructive pulmonary disease Chronic lung disease Hypogammaglobulinemia Smoker JUANITO (obstructive sleep apnea) Allergies Elevated troponin COPD (chronic obstructive pulmonary disease) Trigeminal neuralgia Pulmonary nodules Mixed hyperlipidemia Peripheral neuropathy Tobacco use disorder Mood disorder Surgical History History of esophagogastroduodenoscopy (EGD) History of colonoscopy History of lumbar discectomy History of tubal ligation History of excision of mass History of shoulder surgery Social History Household Members: Spouse Housing: House Do you presently have visiting nurse or other home services: No Alcohol intake: current Alcohol intake frequency: holidays/special occasions only Alcohol type: hard liquor Comment: patient declines bed alarm, ongoing, declines HFR protocol Patient Tobacco Use Status: Former Tobacco user Tobacco use type: Cigarette Cigarette Packs Per Day: 4 Cigarettes Per Day: 80.0 Years Smoked: 40 Smoked in Last 30 Days: No e-Cigarette/Vaping Use: Former Use Second Hand Smoke Exposure: No Use of substances other than those prescribed or required for medical reasons: Yes Substance Use Type: Marijuana Substance Use Frequency: Daily Advance Directives: Yes Advance Directives on File: Yes Advance Directives Date on File: 03/09/23 Patient : No service: No Meds Allergies Allergy/AdvReac Type Severity Reaction Status Date / Time Iodinated Contrast Media Allergy Intermediate HIVES Verified 08/22/24 15:00 [IV CONTRAST] latex [LATEX] Allergy Unknown RASH Verified 08/22/24 15:00 adhesive tape Allergy Rash Verified 08/22/24 15:00 morphine [MORPHINE] AdvReac Unknown VOMITING Verified 08/22/24 15:00 Active Medications: Current Medications Acetaminophen (Acetaminophen 325 Mg Tablet) 650 mg PO Q6H PRN PRN Reason: Pain, Mild 1-3,fever,headache Albuterol Sulfate (Albuterol Sulfate (0.083%) 2.5 Mg/3 Ml Vial.Neb) 2.5 mg INHALE Q2H PRN PRN Reason: Shortness of Breath/Wheezing Albuterol/Ipratropium (Albuterol/Iprat 2.5/0.5mg 3 Ml Ampul.Neb) 3 ml INHALE RQ4H WHILE AWAKE [place] Azithromycin (Azithromycin 500 Mg Tablet) 500 mg PO Q24H [place] Calcium Carbonate (Calcium Carbonate 750 Mg Tab.Chew) 750 mg PO Q4H PRN PRN Reason: Heartburn Enoxaparin Sodium (Enoxaparin Sodium 40 Mg/0.4 Ml Syringe) 40 mg SUBCUT Q24H [place] Azithromycin 500 mg/ Sodium (Chloride) 250 mls @ 125 mls/hr IV ONCE ONE Stop: 08/22/24 21:45 Last Admin: 08/22/24 20:01 Dose: 125 mls/hr Magnesium Hydroxide (Milk Of Magnesia 30 Ml Oral.Susp) 30 ml PO DAILY PRN PRN Reason: Constipation Melatonin (Melatonin 3 Mg Tablet) 6 mg PO BEDTIME PRN PRN Reason: Insomnia Oxycodone HCl (Oxycodone Hcl Immed Release 5 Mg Tablet) 5 mg PO Q6H PRN PRN Reason: Pain, Severe (Pain Scale 7-10) Sodium Chloride (0.9 % Sodium Chloride Flush 3 Ml Syringe) 3 ml IVFLUSH QSHIFT [facility] Home Medications ?Medication ?Instructions ?Recorded ?Confirmed ?Last Taken ?Type atorvastatin 80 mg tablet 80 mg PO DAILY@199903/04/23 08/03/24 08/02/24 History [id number] 1 tab PO DAILY MRX1 PRN Headache 03/04/23 08/03/24 05/21/24 20:00 History 50 mg-325 mg-40 mg tablet duloxetine 60 mg capsule,delayed 60 mg PO BID@050,199903/04/23 08/03/24 08/02/24 History release gabapentin 300 mg capsule 1,200 mg PO TID@0500,1199,199903/04/23 08/03/24 08/02/24 History hyoscyamine sulfate 0.125 mg tablet 0.25 mg PO Q6H PRN Abdominal 03/04/23 08/03/24 05/21/24 20:00 History Discomfort lorazepam 1 mg tablet 1 mg PO DAILY PRN SEVERE Anxiety 03/04/23 08/03/24 3 Days Ago History ~07/31/24 oxcarbazepine 600 mg tablet 600 mg PO BID@050,199903/04/23 08/03/24 08/02/24 History Oxygen Home Use 04/16/23 03/10/24 03/10/24 History prazosin 2 mg capsule 2 mg PO DAILY@199904/16/23 08/03/24 08/02/24 History albuterol sulfate 90 mcg/actuation 2 puff inhalation Q4H PRN 01/31/24 08/03/24 05/21/24 20:00 History aerosol inhaler Shortness Of Breath Or Wheezing aspirin 81 mg tablet,delayed 81 mg PO DAILY@199905/22/24 08/03/24 08/02/24 History release calcium 600 mg (as 1 tab PO DAILY@0500 06/20/24 08/03/24 08/02/24 History carbonate)-vitamin D3 5 mcg (200 unit) tablet baclofen 10 mg tablet 15 mg PO DAILY@0500,1199,199907/02/24 08/03/24 08/02/24 History verapamil 120 mg tablet 120 mg PO BID@499,199907/02/24 08/03/24 08/02/24 History lorazepam 0.5 mg tablet 0.5 mg PO DAILY PRN MODERATE 08/03/24 08/03/24 Unknown History Anxiety Physical Exam Vital Signs and Narrative: Vital Signs: Last Vital Signs Temp 98.0 F 08/22/24 19:00 Pulse 88 08/22/24 19:00 Resp 20 08/22/24 19:00 BP 144/64 H 08/22/24 19:00 Pulse Ox 98 08/22/24 19:00 O2 Del Method Nasal Cannula 08/22/24 19:00 O2 Flow Rate 3 08/22/24 19:00 Oxygen Flow Rate 2 08/22/24 14:57 BMI result Body Mass Index 38.3 Gen: Appears be in no acute distress HEENT: NCAT, Moist mucosa. Pulmonary: Coarse breath sounds CVS: Normal S1-S2 Abdomen: BS+, Soft, Nontender Extremities: Warm well perfused Neuro: Alert and awake. Results Labs 08/22/24 15:30 08/22/24 15:30 Labs: Laboratory Results - last 24 hr 08/22/24 08/22/24 15:30 15:41 MCV 95.9 MCH 31.8 MCHC 33.2 RDW 13.8 Plt Count 336 MPV 8.7 L Immature Gran % (Auto) 0.4 Neut % (Auto) 82.2 H Lymph % (Auto) 5.9 L Cole % (Auto) 9.4 Eos % (Auto) 1.7 Baso % (Auto) 0.4 Lymph # (Auto) 0.7 L Cole # (Auto) 1.1 Eos # (Auto) 0.2 Baso # (Auto) 0.0 Abs Immat Gran (auto) 0.04 H Absolute Neuts (auto) 9.2 H Absolute Nucleated RBC 0.000 Nucleated RBC % (auto) 0.0 VBG pH 7.36 VBG pCO2 51 VBG pO2 48 VBG HCO3 29 H VBG O2 Saturation 79.0 VBG Base Excess 3.6 Anion Gap 14 Estim Creat Clear Calc 79.2 Estimated GFR > 60 Random Glucose 117 H Lactic Acid 1.9 Calcium 9.6 Total Bilirubin 0.4 AST 29 ALT 24 Alkaline Phosphatase 58 B-Natriuretic Peptide 42 Total Protein 8.5 H Albumin 4.0 Lipase 34 Influenza Type A (PCR) NEGATIVE Influenza Type B (PCR) NEGATIVE RSV RNA Qual (PCR) NEGATIVE SARS-CoV-2 RNA (RT-PCR) NEGATIVE Assessment and Plan (1) Acute exacerbation of chronic obstructive pulmonary disease: Status: Acute Plan 59-year-old female with a past medical history HTN, COPD, chronic respiratory failure on home oxygen, aortic stenosis, trigeminal neuralgia, neuropathy, HX CVA, mood disorder presented to the hospital today with a chief complaint of shortness of breath. Noted to be in acute COPD exacerbation. Acute COPD exacerbation: Acute respiratory failure: Patient on presentation noted to be in respiratory distress, speaking in one-word sentences, on BiPAP for about 3 hours. Respiratory status improved. Transition to nasal cannula. Venous blood gas appears compensated. Patient has multiple admissions to the hospital for COPD exacerbation since November of 2023. Continue supplemental oxygen with a goal oxygen saturation of 88-93% Continue nebulizations standing and p.r.n. Continue Solu-Medrol Azithromycin Trending pulse oximetry when ready for discharge Pulmonology consult-given recurrent episodes Chest x-ray showed pulmonary opacities-noted similar opacities in August 05. Recommended follow-up chest x-ray to ensure improvement. History of trigeminal neuralgia: Continue home oxcarbazepine, gabapentin, verapamil History of anxiety, depression: Continue home duloxetine, clonidine Hypogammaglobulinemia: Patient reports that she gets monthly IVIG injections at infusion center. She has received her infusion today-08/22/2024. DVT prophylaxis: Lovenox Code status: Full code Quality Stroke Does the patient have a stroke diagnosis?: No VTE Prior VTE?: No VTE Risk Level:: Medical - moderate - high VTE Device Contraindication: Treatment Not Indicated VTE Drug Contraindication: Treatment Not Indicated
--- NOTE | 2024-08-22 21:47 | PHA.MEDREC ---
Pharmacy Consult ? Medication Reconciliation Pharmacy has completed the medication reconciliation. Spoke to patient to confirm medication list. Patient was discharged recently and she confirmed she is taking baclofen 15 mg tid, norco 5 mg-325 mg qd, lorazepam 0.5 mg daily prn and 1 mg at bedtime prn, oxcarbazepine 600 mg bid, gabapentin 1200 mg tid and trelegy inhaler 1 puff in the morning. She said she no longer takes furosemide, doxycycline nor prednisone. Last dose of medications was today (morning and afternoon).
--- NOTE | 2024-08-22 21:50 | PC.NURSE ---
per provider, do not administer PO antibiotics due to pt already being on a current IV antibiotic drip.
--- NOTE | 2024-08-22 22:40 | PC.NURSE ---
pt noted to be short of breath with bilateral wheezing. pt sating 98% on 3L. provider contacted for duoneb at this time.
[2024-08-23] VITALS (9 sets, daily range): BP systolic 128–140; BP diastolic 58–78; PULSE 70–94; RESP 16–23; TEMP 36.3–37.1; O2SAT 94–98; BMI 40.9
[2024-08-23] MEDS: oxyCODONE HCl Immed Release 5 MG TABLET PO ×3 (03:11→20:11)
[2024-08-23 05:18] LABS: MANUAL DIFF FLAG NO
[2024-08-23 05:24] LABS: Basophils Percent Auto 0.2 % (0-2); Hematocrit 38.9 % (37.0-47.0); Hemoglobin 12.7 g/dl (12.0-16.0); Imm Gran Abs Auto 0.01 X10*3/uL (0.00-0.03); Imm Gran Pct Auto 0.2 % (0.0-0.4); Lymphocytes Absolute Auto 0.5 X10*3/uL (1.2-4.9); Lymphocytes Percent Auto 8.7 % (20-40); Mean Corpuscular HGB Conc 32.6 g/dl (31.0-35.0); Mean Corpuscular Hemoglobin 31.4 pg (27.0-33.0); Mean Platelet Volume 8.9 fL (9.4-12.3); Monocytes Absolute Auto 0.5 X10*3/uL (0.1-1.2); Monocytes Percent Auto 9.4 % (2-11); Neutrophils Absolute Auto 4.5 x10*3/uL (2.0-8.3); Neutrophils Percent Auto 81.5 % (45-73); Platelet Count 334 X10*3/uL (160-400); Red Blood Count 4.05 X10*6/uL (4.20-5.50); Red Cell Distribution Width 14.2 % (11.0-16.0); White Blood Count 5.5 X10*3/uL (4.8-10.8)
[2024-08-23 05:45] LABS: Alanine Aminotransferase 17 U/L (0-31); Albumin Level 3.9 g/dL (3.5-5.0); Alkaline Phosphatase 55 U/L (39-117); Anion Gap 12 (12-20); Aspartate Amino Transferase 23 U/L (5-31); Bilirubin Total 0.3 mg/dL (0.0-1.0); Blood Urea Nitrogen 9 mg/dL (9-16); Calcium 9.8 mg/dL (8.4-10.2); Carbon Dioxide 26 mmol/L (22-29); Chloride 108 mmol/L (96-108); Creatinine Clr Calc Pharmacy 88.8; Estimated Glomerular Filt Rate > 60; Glucose Random 127 mg/dL (60-115); Potassium 4.2 mmol/L (3.3-5.1); Sodium 142 mmol/L (135-145); Total Protein 8.2 g/dL (6.5-8.0)
[2024-08-23] MEDS: methylPREDNISolone Sod Succ 125 MG/2 ML VIAL 80 MG IVPUSH ×3 (05:59→20:15)
[2024-08-23] MEDS: Butalb/Acetamin/Caff 50/325/40 TABLET 1 TAB PO ×3 (05:59→20:26)
[2024-08-23] MEDS: Gabapentin 400 MG CAPSULE 1200 MG PO ×3 (05:59→20:11)
[2024-08-23] MEDS: Baclofen 10 MG TABLET 15 MG PO ×3 (06:00→20:11)
[2024-08-23] MEDS: OXcarbazepine 300 MG TABLET 600 MG PO ×2 (06:00→20:10)
[2024-08-23] MEDS: DULoxetine HCl 60 MG CAPSULE.DR PO ×2 (06:00→20:10)
[2024-08-23] MEDS: VerapamiL HCL 120 MG TABLET PO ×2 (06:00→20:10)
--- NOTE | 2024-08-23 06:25 | PC.NURSE ---
pt medicated per mar, vss. pt reporting 8/10 headache, medicated with prn medications. pt remains 2L nc, 95%, nsr on tele.
[2024-08-23] MEDS: Albuterol/Iprat 2.5/0.5MG 3 ML AMPUL.NEB INHALE ×4 (07:52→18:59)
[2024-08-23] MEDS: cloNIDine HCL 0.1 MG TABLET PO ×3 (08:33→20:10)
[2024-08-23] MEDS: 0.9 % Sodium Chloride Flush 3 ML SYRINGE IVFLUSH ×2 (08:35→15:30)
--- NOTE | 2024-08-23 09:03 | MHC.CM.PN ---
Patient lives with her , uses home O2, and a walker to assist with mobility. Home/resume home O2 is Patient's goal and CM has initiated and will follow for dc planning. PCP is Dr. Liyah Patterson and will transport to home at dc.
--- NOTE | 2024-08-23 11:01 | HO.PM.IMPN ---
Subjective Subjective Date of Service: 08/23/24 Interval History: seen and evaluated this morning Feels better overall still on O2 supplement, dyspnea with minimal exertion denies fever or chills no other events Review of Systems Review of Systems: Yes all other systems are reviewed and are negative Physical Exam Vital Signs: Vital Signs: Last Vital Signs Temp 98.1 F 08/23/24 07:20 Pulse 71 08/23/24 07:53 Resp 20 08/23/24 07:53 BP 140/58 H 08/23/24 07:20 Pulse Ox 96 08/23/24 07:20 O2 Del Method Nasal Cannula 08/23/24 07:20 O2 Flow Rate 2 08/23/24 07:20 Oxygen Flow Rate 2 08/22/24 14:57 BMI result Body Mass Index 38.3 Const: Other: Constitutional : Awake, interactive, not in distress Neck : Normal inspection, Supple Cardiovascular : RRR, no JVP, no lower extremity edema Respiratory : decreased bilateral air entry, no crackles,bilateral expiratory wheezes, on O2 supplement. Gastrointestinal: soft, lax, Normal bowel sounds, Non tender Skin : Warm, Dry Neurological : Alert & oriented x3, No focal deficit Objective Data Active Medications Acetaminophen (Acetaminophen 325 Mg Tablet) 650 mg PO Q6H PRN PRN Reason: Pain, Mild 1-3,fever,headache Acetaminophen/Butalbital/Caffeine (Butalb/Acetamin/Caff 50/325/40 Tablet) 1 tab PO DAILY MRX1 PRN PRN Reason: Headache Last Admin: 08/23/24 05:59 Dose: 1 tab Documented By: SATHYA Albuterol Sulfate (Albuterol Sulfate (0.083%) 2.5 Mg/3 Ml Vial.Neb) 2.5 mg INHALE Q2H PRN PRN Reason: Shortness of Breath/Wheezing Albuterol/Ipratropium (Albuterol/Iprat 2.5/0.5mg 3 Ml Ampul.Neb) 3 ml INHALE RQ4H WHILE AWAKE [facility] Last Admin: 08/23/24 07:52 Dose: 3 ml Documented By: JUAN C Aspirin (Aspirin Enteric Coated 81 Mg Tablet.) 81 mg PO DAILY@1999 [facility] Atorvastatin Calcium (Atorvastatin Calcium 80 Mg Tablet) 80 mg PO DAILY@1999 [facility] Azithromycin (Azithromycin 500 Mg Tablet) 500 mg PO Q24H [facility] Baclofen (Baclofen 10 Mg Tablet) 15 mg PO TID@499,1199,1999 [facility] Last Admin: 08/23/24 06:00 Dose: 15 mg Documented By: SATHYA Calcium Carbonate (Calcium Carbonate 750 Mg Tab.Chew) 750 mg PO Q4H PRN PRN Reason: Heartburn Clonidine HCl (Clonidine Hcl 0.1 Mg Tablet) 0.1 mg PO TID [facility]; Protocol Last Admin: 08/23/24 08:33 Dose: 0.1 mg Documented By: SEVEN Duloxetine HCl (Duloxetine Hcl 60 Mg Capsule.Dr) 60 mg PO BID@ [facility] Last Admin: 08/23/24 06:00 Dose: 60 mg Documented By: SATHYA Enoxaparin Sodium (Enoxaparin Sodium 40 Mg/0.4 Ml Syringe) 40 mg SUBCUT Q24H [facility] Last Admin: 08/22/24 21:50 Dose: Not Given Documented By: SATHYA Non-Admin Reason: Patient Refused Fluticasone/Umeclidinium/Vilanterol (Fluticasone/Umeclidinium/Vilanterol 200/62.5/ Blst.W.Dev) 1 puff INHALE RDAILY [facility] Gabapentin (Gabapentin 400 Mg Capsule) 1,200 mg PO TID@499,1199,1999 [facility] Last Admin: 08/23/24 05:59 Dose: 1,200 mg Documented By: SATHYA Lorazepam (Lorazepam 1 Mg Tablet) 1 mg PO BEDTIME PRN PRN Reason: SEVERE Anxiety Lorazepam (Lorazepam 0.5 Mg Tablet) 0.5 mg PO DAILY PRN PRN Reason: MODERATE Anxiety Magnesium Hydroxide (Milk Of Magnesia 30 Ml Oral.Susp) 30 ml PO DAILY PRN PRN Reason: Constipation Melatonin (Melatonin 3 Mg Tablet) 6 mg PO BEDTIME PRN PRN Reason: Insomnia Methylprednisolone Sodium Succinate (Methylprednisolone Sod Succ 125 Mg/2 Ml Vial) 80 mg IVPUSH Q8H [facility] Last Admin: 08/23/24 05:59 Dose: 80 mg Documented By: SATHYA Non-Formulary Medication (Hyoscyamine Sulfate) 0.25 mg PO Q6H PRN PRN Reason: Abdominal Discomfort Oxcarbazepine (Oxcarbazepine 300 Mg Tablet) 600 mg PO BID@ [facility] Last Admin: 08/23/24 06:00 Dose: 600 mg Documented By: SATHYA Oxycodone HCl (Oxycodone Hcl Immed Release 5 Mg Tablet) 5 mg PO Q6H PRN PRN Reason: Pain, Severe (Pain Scale 7-10) Last Admin: 08/23/24 08:33 Dose: 5 mg Documented By: SEVEN Prazosin HCl (Prazosin Hcl 1 Mg Capsule) 2 mg PO DAILY@1999 [facility]; Protocol Sodium Chloride (0.9 % Sodium Chloride Flush 3 Ml Syringe) [facility] Last Admin: 08/23/24 08:35 Dose: 3 ml Documented By: SEVEN Verapamil HCl (Verapamil Hcl 120 Mg Tablet) 120 mg PO BID@ [facility]; Protocol Last Admin: 08/23/24 06:00 Dose: 120 mg Documented By: SATHYA Labs 08/23/24 04:46 08/23/24 04:46 Labs: Laboratory Results - last 24 hr 08/22/24 08/22/24 08/23/24 15:30 15:41 04:46 MCV 95.9 96.0 MCH 31.8 31.4 MCHC 33.2 32.6 RDW 13.8 14.2 Plt Count 336 334 MPV 8.7 L 8.9 L Immature Gran % (Auto) 0.4 0.2 Neut % (Auto) 82.2 H 81.5 H Lymph % (Auto) 5.9 L 8.7 L Blount % (Auto) 9.4 9.4 Eos % (Auto) 1.7 0.0 Baso % (Auto) 0.4 0.2 Lymph # (Auto) 0.7 L 0.5 L Blount # (Auto) 1.1 0.5 Eos # (Auto) 0.2 0.0 Baso # (Auto) 0.0 0.0 Abs Immat Gran (auto) 0.04 H 0.01 Absolute Neuts (auto) 9.2 H 4.5 Absolute Nucleated RBC 0.000 0.000 Nucleated RBC % (auto) 0.0 0.0 VBG pH 7.36 VBG pCO2 51 VBG pO2 48 VBG HCO3 29 H VBG O2 Saturation 79.0 VBG Base Excess 3.6 Anion Gap 14 12 Estim Creat Clear Calc 79.2 88.8 Estimated GFR > 60 > 60 Random Glucose 117 H 127 H Lactic Acid 1.9 Calcium 9.6 9.8 Total Bilirubin 0.4 0.3 AST 29 23 ALT 24 17 Alkaline Phosphatase 58 55 B-Natriuretic Peptide 42 Total Protein 8.5 H 8.2 H Albumin 4.0 3.9 Lipase 34 Influenza Type A (PCR) NEGATIVE Influenza Type B (PCR) NEGATIVE RSV RNA Qual (PCR) NEGATIVE SARS-CoV-2 RNA (RT-PCR) NEGATIVE Assessment and Plan (1) Pneumonia: Status: Acute (2) Chronic lung disease: Status: Acute (3) Acute exacerbation of chronic obstructive pulmonary disease: Status: Acute (4) Acute on chronic hypoxic respiratory failure: Status: Acute Plan 59-year-old female with a past medical history HTN, COPD, chronic respiratory failure on home oxygen, aortic stenosis, trigeminal neuralgia, neuropathy, HX CVA, mood disorder presented to the hospital today with a chief complaint of shortness of breath. Noted to be in acute COPD exacerbation. Acute on chronic hypoxic respiratory failure 2/2 Pneumonia and Acute COPD exacerbation required BiPAP for about 3 hours. Chest x-ray showed pulmonary opacities Patient has multiple admissions to the hospital for COPD exacerbation since November of 2023. follows with dr Henriquez as outpatient. Continue supplemental oxygen with a goal oxygen saturation of 88-93% Continue nebulizations standing and p.r.n. Continue Solu-Medrol Azithromycin and Ceftriaxone started 08/22 Trending pulse oximetry when ready for discharge Pulmonology consult History of trigeminal neuralgia: Continue home oxcarbazepine, gabapentin, verapamil History of anxiety, depression: Continue home duloxetine, clonidine Hypogammaglobulinemia: Patient reports that she gets monthly IVIG injections at infusion center. She has received her infusion today-08/22/2024. DVT prophylaxis: Lovenox Code status: Full code Quality Stroke Does the patient have a stroke diagnosis?: No VTE Prior VTE?: No VTE Risk Level:: Medical - moderate - high VTE Device Contraindication: Treatment Not Indicated VTE Drug Contraindication: Treatment Not Indicated
--- NOTE | 2024-08-23 11:50 | P.CONPL_ITS ---
History of Present Illness History of Present Illness Consult date: 08/23/24 Chief complaint: COPD Exacerbation Narrative: 59-year-old lady with underlying history of COPD on 2 L of supplemental oxygen, JUANITO, followed by Dr. Henriquez admitted on 08/22/2024 with COPD exacerbation likely after her IVIG treatment and is being treated with IV glucocorticoids and nebulized bronchodilators, with slow improvement, and still with significantly diminished air movement. Review of Systems 2 Constitutional: Constitutional: Denies daytime sleepiness, Denies excessive sweating, Denies fatigue, Denies fever(s), Denies lethargy, Denies malaise, Denies night sweats, Denies snoring and Denies weight loss Eyes: Eyes: Denies blurry vision and Denies itchy eyes ENT: Denies nasal congestion, Denies post nasal drip, Denies sinus pain, Denies sinus pressure and Denies other ( Thrush) Cardiovascular: Cardiovascular: Denies chest pain, Denies pedal edema, Reports dyspnea, Reports dyspnea on exertion, Denies orthopnea and Denies paroxysmal nocturnal dyspnea Respiratory: Respiratory: Denies cough, Denies hemoptysis, Denies excessive phlegm production, Reports dyspnea, Reports dyspnea on exertion, Denies snoring and Reports wheezing Gastrointestinal: Gastrointestinal: Denies abdominal pain and Denies heartburn Musculoskeletal: Musculoskeletal: Denies myalgias, Denies arthralgias and Denies joint swelling Integumentary/Breasts: Skin/Breast: Denies rash Neurologic: Denies memory loss and Denies seizure-like activity Psychiatric: Psychiatric: Denies abnormal sleep pattern, Denies anxiety and Denies memory loss Endocrine: Endocrine: Denies excessive sweating, Denies fatigue and Denies heat intolerance Hematologic/Lymphatic: Hematologic/Lymphatic: Denies easy bruising Allergic/Immunologic: Allergic/Immunologic: Denies itchy eyes, Denies seasonal rhinorrhea and Reports wheezing PMFSH Past Medical History Medical History Panic disorder Hypertension Chronic hypercapnic respiratory failure Aortic stenosis Obesity (BMI 30-39.9) Asthma Acute exacerbation of chronic obstructive pulmonary disease Chronic lung disease Hypogammaglobulinemia Smoker JUANITO (obstructive sleep apnea) Allergies Elevated troponin COPD (chronic obstructive pulmonary disease) Trigeminal neuralgia Pulmonary nodules Mixed hyperlipidemia Peripheral neuropathy Tobacco use disorder Mood disorder Surgical History Surgical History History of esophagogastroduodenoscopy (EGD) History of colonoscopy History of lumbar discectomy History of tubal ligation History of excision of mass History of shoulder surgery Social History Social History Household Members: Spouse [facility]: [facility] Do you presently have visiting nurse or other home services: No Alcohol intake: current Alcohol intake frequency: holidays/special occasions only Alcohol type: hard liquor Comment: patient declines bed alarm, ongoing, declines HFR protocol Patient Tobacco Use Status: Former Tobacco user Tobacco use type: Cigarette Cigarette Packs Per Day: 4 Cigarettes Per Day: 80.0 Years Smoked: 40 Smoked in Last 30 Days: No e-Cigarette/Vaping Use: Former Use Second Hand Smoke Exposure: No Use of substances other than those prescribed or required for medical reasons: Yes Substance Use Type: Marijuana Substance Use Type Other:: edibles Substance Use Frequency: Daily Have you been hit, kicked, punched, or otherwise hurt by someone within the past year? If so, by whom?: No Do you feel safe in your current relationship?: Yes Is there a partner from a previous relationship who is making you feel unsafe now?: No Advance Directives: Yes Advance Directives on File: Yes Advance Directives Date on File: 03/09/23 Do you have a plan to hurt others: No Plan Recently lost weight without trying: No How much weight loss: Not applicable Eating poorly because of decreased appetite: No Nutrition screen score: 0 Nutrition Risks: No Nutritional Risk Patient : No : No Poor oral hygiene: No service: No Meds Allergies Allergy/AdvReac Type Severity Reaction Status Date / Time Iodinated Contrast Media Allergy Intermediate HIVES Verified 08/22/24 15:00 [IV CONTRAST] latex [LATEX] Allergy Unknown RASH Verified 08/22/24 15:00 adhesive tape Allergy Rash Verified 08/22/24 15:00 morphine [MORPHINE] AdvReac Unknown VOMITING Verified 08/22/24 15:00 Active Medications: Current Medications Acetaminophen (Acetaminophen 325 Mg Tablet) 650 mg PO Q6H PRN PRN Reason: Pain, Mild 1-3,fever,headache Acetaminophen/Butalbital/Caffeine (Butalb/Acetamin/Caff 50/325/40 Tablet) 1 tab PO DAILY MRX1 PRN PRN Reason: Headache Last Admin: 08/23/24 05:59 Dose: 1 tab Albuterol Sulfate (Albuterol Sulfate (0.083%) 2.5 Mg/3 Ml Vial.Neb) 2.5 mg INHALE Q2H PRN PRN Reason: Shortness of Breath/Wheezing Albuterol/Ipratropium (Albuterol/Iprat 2.5/0.5mg 3 Ml Ampul.Neb) 3 ml INHALE RQ4H WHILE AWAKE [facility] Last Admin: 08/23/24 07:52 Dose: 3 ml Aspirin (Aspirin Enteric Coated 81 Mg Tablet.) 81 mg PO DAILY@1999 [facility] Atorvastatin Calcium (Atorvastatin Calcium 80 Mg Tablet) 80 mg PO DAILY@1999 [facility] Azithromycin (Azithromycin 500 Mg Tablet) 500 mg PO Q24H [facility] Baclofen (Baclofen 10 Mg Tablet) 15 mg PO TID@499, [facility] Last Admin: 08/23/24 06:00 Dose: 15 mg Calcium Carbonate (Calcium Carbonate 750 Mg Tab.Chew) 750 mg PO Q4H PRN PRN Reason: Heartburn Ceftriaxone Sodium (Ceftriaxone Sodium 1 Gm Vial) 1 gm IVPUSH Q24H [facility] Clonidine HCl (Clonidine Hcl 0.1 Mg Tablet) 0.1 mg PO TID [facility]; Protocol Last Admin: 08/23/24 08:33 Dose: 0.1 mg Duloxetine HCl (Duloxetine Hcl 60 Mg Capsule.) 60 mg PO BID@ [facility] Last Admin: 08/23/24 06:00 Dose: 60 mg Enoxaparin Sodium (Enoxaparin Sodium 40 Mg/0.4 Ml Syringe) 40 mg SUBCUT Q24H [facility] Last Admin: 08/22/24 21:50 Dose: Not Given Fluticasone/Umeclidinium/Vilanterol (Fluticasone/Umeclidinium/Vilanterol 200/62.5/25 Blst.W.Dev) 1 puff INHALE RDAILY [facility] Gabapentin (Gabapentin 400 Mg Capsule) 1,200 mg PO TID@499,1199,1999 [facility] Last Admin: 08/23/24 05:59 Dose: 1,200 mg Lorazepam (Lorazepam 1 Mg Tablet) 1 mg PO BEDTIME PRN PRN Reason: SEVERE Anxiety Lorazepam (Lorazepam 0.5 Mg Tablet) 0.5 mg PO DAILY PRN PRN Reason: MODERATE Anxiety Magnesium Hydroxide (Milk Of Magnesia 30 Ml Oral.Susp) 30 ml PO DAILY PRN PRN Reason: Constipation Melatonin (Melatonin 3 Mg Tablet) 6 mg PO BEDTIME PRN PRN Reason: Insomnia Methylprednisolone Sodium Succinate (Methylprednisolone Sod Succ 125 Mg/2 Ml Vial) 80 mg IVPUSH Q8H [facility] Last Admin: 08/23/24 05:59 Dose: 80 mg Non-Formulary Medication (Hyoscyamine Sulfate) 0.25 mg PO Q6H PRN PRN Reason: Abdominal Discomfort Oxcarbazepine (Oxcarbazepine 300 Mg Tablet) 600 mg PO BID@ [facility] Last Admin: 08/23/24 06:00 Dose: 600 mg Oxycodone HCl (Oxycodone Hcl Immed Release 5 Mg Tablet) 5 mg PO Q6H PRN PRN Reason: Pain, Severe (Pain Scale 7-10) Last Admin: 08/23/24 08:33 Dose: 5 mg Prazosin HCl (Prazosin Hcl 1 Mg Capsule) 2 mg PO DAILY@1999 [facility]; Protocol Sodium Chloride (0.9 % Sodium Chloride Flush 3 Ml Syringe) [facility] Last Admin: 08/23/24 08:35 Dose: 3 ml Verapamil HCl (Verapamil Hcl 120 Mg Tablet) 120 mg PO BID@ [facility]; Protocol Last Admin: 08/23/24 06:00 Dose: 120 mg Home Medications ?Medication ?Instructions ?Recorded ?Confirmed ?Last Taken ?Type atorvastatin 80 mg tablet 80 mg PO DAILY@199903/04/23 08/22/24 08/21/24 History [id number] 1 tab PO DAILY MRX1 PRN Headache 03/04/23 08/22/24 05/21/24 20:00 History 50 mg-325 mg-40 mg tablet duloxetine 60 mg capsule,delayed 60 mg PO BID@03/04/23 08/22/24 08/22/24 History release gabapentin 300 mg capsule 1,200 mg PO TID@050,1199,199903/04/23 08/22/24 08/22/24 History hyoscyamine sulfate 0.125 mg tablet 0.25 mg PO Q6H PRN Abdominal 03/04/23 08/22/24 05/21/24 20:00 History Discomfort lorazepam 1 mg tablet 1 mg PO BEDTIME PRN SEVERE Anxiety 03/04/23 08/22/24 3 Days Ago History ~07/31/24 oxcarbazepine 600 mg tablet 600 mg PO BID@050,199903/04/23 08/22/24 08/22/24 History Oxygen Home Use 04/16/23 03/10/24 03/10/24 History prazosin 2 mg capsule 2 mg PO DAILY@199904/16/23 08/22/24 08/21/24 History albuterol sulfate 90 mcg/actuation 2 puff inhalation Q4H PRN 01/31/24 08/22/24 05/21/24 20:00 History aerosol inhaler Shortness Of Breath Or Wheezing aspirin 81 mg tablet,delayed 81 mg PO DAILY@199905/22/24 08/22/24 08/21/24 History release calcium 600 mg (as 1 tab PO DAILY@199906/20/24 08/22/24 08/21/24 History carbonate)-vitamin D3 5 mcg (200 unit) tablet baclofen 10 mg tablet 15 mg PO TID@0500,1200,199907/02/24 08/22/24 08/22/24 History verapamil 120 mg tablet 120 mg PO BID@050,199907/02/24 08/22/24 08/22/24 History lorazepam 0.5 mg tablet 0.5 mg PO DAILY PRN MODERATE 08/03/24 08/22/24 Unknown History Anxiety fluticasone fur. 200 mcg-umeclid 1 ea inhalation DAILY 08/22/24 08/22/24 08/22/24 History 62.5 mcg-vilant 25 mcg inhalat.powder (Trelegy Ellipta) hydrocodone 5 mg-acetaminophen 325 1 tab PO DAILY 08/22/24 08/22/24 08/22/24 History mg tablet Physical Exam 2 Vital Signs: Vital Signs: Last Vital Signs Temp 98.6 F 08/23/24 11:27 Pulse 83 08/23/24 11:27 Resp 18 08/23/24 11:27 BP 132/78 08/23/24 11:27 Pulse Ox 98 08/23/24 11:27 O2 Del Method Nasal Cannula 08/23/24 11:27 O2 Flow Rate 3 08/23/24 11:27 Oxygen Flow Rate 2 08/22/24 14:57 BMI result Body Mass Index 40.9 Const: General: no acute distress and alert Nutritional Appearance: obese Orientation/consciousness: Other orientation findings ( oriented) HEENT: Head: Yes atraumatic Eyes: General: appearance normal, both eyes and all related structures S clerae: sclerae normal EOM: EOMs intact bilaterally Neck: Neck: Yes supple Lymphatic: no lymphadenopathy noted Resp: Effort & Inspection: normal respiratory effort and no use of accessory muscles Auscultation: wheezes (Expiratory bilateral) Cardio: Rate: regular rate Rhythm: regular rhythm Heart sounds: no gallops, no murmurs and no rubs Skin: General skin exam: other ( warm) Extrem: General: No clubbing, No cyanosis and No edema Results Laboratory Findings 08/23/24 04:46 08/23/24 04:46 Abnormal lab findings: Abnormal Labs 08/22/24 08/22/24 08/23/24 15:30 15:41 04:46 WBC 11.2 H RBC 3.93 L 4.05 L MPV 8.7 L 8.9 L Neut % (Auto) 82.2 H 81.5 H Lymph % (Auto) 5.9 L 8.7 L Lymph # (Auto) 0.7 L 0.5 L Abs Immat Gran (auto) 0.04 H Absolute Neuts (auto) 9.2 H VBG HCO3 29 H Random Glucose 117 H 127 H Total Protein 8.5 H 8.2 H Assessment and Plan (1) Acute exacerbation of chronic obstructive pulmonary disease: Status: Acute Plan Impression: 59-year-old lady with underlying supplemental oxygen dependent COPD admitted with COPD exacerbation, still significantly symptomatic. Recommendation: Agree with current treatment regimen including nebulized bronchodilators and systemic glucocorticoids. Consider decreasing Solu-Medrol to equivalent of 60 mg daily. Procedures Date of Service Date of Service: 08/23/24
[2024-08-23] MEDS: LORazepam 0.5 MG TABLET PO (12:34)
[2024-08-23] MEDS: Atorvastatin Calcium 80 MG TABLET PO (20:10)
[2024-08-23] MEDS: Prazosin HCL 1 MG CAPSULE 2 MG PO (20:10)
[2024-08-23] MEDS: Azithromycin 500 MG TABLET PO (20:11)
[2024-08-23] MEDS: Aspirin Enteric Coated 81 MG TABLET.DR PO (20:11)
[2024-08-23] MEDS: cefTRIAXone sodium 1 GM VIAL IVPUSH (20:14)
[2024-08-23] MEDS: Sodium Chloride 0.65 % Nasal 44 ML SPRBTL 1 SPRAY NOSTRIL-B (20:26)
[2024-08-23] MEDS: Melatonin 3 MG TABLET 6 MG PO (21:44)
[2024-08-23] MEDS: LORazepam 1 MG TABLET PO (21:44)
[2024-08-24] VITALS (8 sets, daily range): BP systolic 130–150; BP diastolic 60–72; PULSE 76–90; RESP 16–20; TEMP 36–37.2; O2SAT 92–98
[2024-08-24] MEDS: oxyCODONE HCl Immed Release 5 MG TABLET PO ×3 (01:56→21:07)
[2024-08-24] MEDS: DULoxetine HCl 60 MG CAPSULE.DR PO ×2 (05:02→21:16)
[2024-08-24] MEDS: OXcarbazepine 300 MG TABLET 600 MG PO ×2 (05:02→21:14)
[2024-08-24] MEDS: cloNIDine HCL 0.1 MG TABLET PO ×3 (05:03→21:09)
[2024-08-24] MEDS: Gabapentin 400 MG CAPSULE 1200 MG PO ×3 (05:03→21:15)
[2024-08-24] MEDS: VerapamiL HCL 120 MG TABLET PO ×2 (05:03→21:15)
[2024-08-24] MEDS: Baclofen 10 MG TABLET 15 MG PO ×3 (05:03→21:16)
[2024-08-24] MEDS: methylPREDNISolone Sod Succ 125 MG/2 ML VIAL 80 MG IVPUSH (05:05)
[2024-08-24] MEDS: Acetaminophen 325 MG TABLET 650 MG PO ×2 (05:09→15:13)
[2024-08-24] MEDS: Fluticasone/Umeclidinium/Vilanterol 200/62.5/25 BLST.W.DEV 1 PUFF INHALE (07:42)
[2024-08-24] MEDS: Albuterol/Iprat 2.5/0.5MG 3 ML AMPUL.NEB INHALE ×4 (07:45→19:55)
[2024-08-24 08:04] LABS: MANUAL DIFF FLAG NO
[2024-08-24 08:07] LABS: Basophils Percent Auto 0.1 % (0-2); Hematocrit 37.9 % (37.0-47.0); Hemoglobin 12.1 g/dl (12.0-16.0); Imm Gran Abs Auto 0.06 X10*3/uL (0.00-0.03); Imm Gran Pct Auto 0.6 % (0.0-0.4); Lymphocytes Absolute Auto 0.5 X10*3/uL (1.2-4.9); Lymphocytes Percent Auto 4.2 % (20-40); Mean Corpuscular HGB Conc 31.9 g/dl (31.0-35.0); Mean Corpuscular Hemoglobin 31.8 pg (27.0-33.0); Mean Corpuscular Volume 99.7 fL (80.0-98.0); Mean Platelet Volume 9.1 fL (9.4-12.3); Monocytes Absolute Auto 0.7 X10*3/uL (0.1-1.2); Monocytes Percent Auto 6.3 % (2-11); Neutrophils Absolute Auto 9.5 x10*3/uL (2.0-8.3); Neutrophils Percent Auto 88.8 % (45-73); Platelet Count 334 X10*3/uL (160-400); Red Cell Distribution Width 14.7 % (11.0-16.0); White Blood Count 10.7 X10*3/uL (4.8-10.8)
[2024-08-24 08:19] LABS: Anion Gap 14 (12-20); Blood Urea Nitrogen 13 mg/dL (9-16); Calcium 9.7 mg/dL (8.4-10.2); Carbon Dioxide 27 mmol/L (22-29); Chloride 104 mmol/L (96-108); Creatinine Clr Calc Pharmacy 86.9; Estimated Glomerular Filt Rate > 60; Glucose Random 159 mg/dL (60-115); Potassium 4.5 mmol/L (3.3-5.1); Sodium 140 mmol/L (135-145)
[2024-08-24] MEDS: Butalb/Acetamin/Caff 50/325/40 TABLET 1 TAB PO ×2 (09:52→21:04)
[2024-08-24] MEDS: LORazepam 0.5 MG TABLET PO (09:52)
[2024-08-24] MEDS: 0.9 % Sodium Chloride Flush 3 ML SYRINGE IVFLUSH ×3 (09:53→21:12)
[2024-08-24] MEDS: methylPREDNISolone Sod Succ 125 MG/2 ML VIAL 40 MG IVPUSH (12:07)
--- NOTE | 2024-08-24 12:12 | HO.PM.IMPN ---
Subjective Subjective Date of Service: 08/24/24 Interval History: Being followed for acute COPD exacerbation Complaining of shortness of breath and cough At baseline on 1 L of oxygen with sleep/2 L with rest and 3 L with exertion Currently 96% on 2 L at rest Complaining of intermittent headache/back pain with radiation to leg requesting for more frequent oxycodone and Fioricet Walk short distances at home complaining of weakness and inability to ambulate Review of Systems All other system reviewed and are negative Physical Exam Vital Signs: Vital Signs: Last Vital Signs Temp 98.1 F 08/24/24 11:47 Pulse 84 08/24/24 11:47 Resp 20 08/24/24 11:47 BP 130/60 08/24/24 11:47 Pulse Ox 94 08/24/24 11:47 O2 Del Method Nasal Cannula 08/24/24 11:47 O2 Flow Rate 3 08/24/24 11:47 Oxygen Flow Rate 2 08/22/24 14:57 BMI result Body Mass Index 40.9 Const: Other: General resting comfortably in no acute distress. Right periorbital ecchymosis Neck no JVD. CVS regular rate rhythm, Respiratory lungs few expiratory wheeze, no respiratory distress Gastrointestinal abdomen soft, non tender, bowel sounds audible, no guarding , no rigidity. Extremities no edema Neuro non focal Skin no rash Psych appropriate affect Objective Data Active Medications Acetaminophen (Acetaminophen 325 Mg Tablet) 650 mg PO Q6H PRN PRN Reason: Pain, Mild 1-3,fever,headache Last Admin: 08/24/24 05:09 Dose: 650 mg Documented By: CRISTINA Acetaminophen/Butalbital/Caffeine (Butalb/Acetamin/Caff 50/325/40 Tablet) 1 tab PO BID PRN PRN Reason: Headache Albuterol Sulfate (Albuterol Sulfate (0.083%) 2.5 Mg/3 Ml Vial.Neb) 2.5 mg INHALE Q2H PRN PRN Reason: Shortness of Breath/Wheezing Albuterol/Ipratropium (Albuterol/Iprat 2.5/0.5mg 3 Ml Ampul.Neb) 3 ml INHALE RQ4H WHILE AWAKE [facility] Last Admin: 08/24/24 11:33 Dose: 3 ml Documented By: WILL Aspirin (Aspirin Enteric Coated 81 Mg Tablet.) 81 mg PO DAILY@1999 [facility] Last Admin: 08/23/24 20:11 Dose: 81 mg Documented By: CRISTINA Atorvastatin Calcium (Atorvastatin Calcium 80 Mg Tablet) 80 mg PO DAILY@1999 [facility] Last Admin: 08/23/24 20:10 Dose: 80 mg Documented By: CRISTINA Azithromycin (Azithromycin 500 Mg Tablet) 500 mg PO Q24H [facility] Last Admin: 08/23/24 20:11 Dose: 500 mg Documented By: CRISTINA Baclofen (Baclofen 10 Mg Tablet) 15 mg PO TID@499, [facility] Last Admin: 08/24/24 12:07 Dose: 15 mg Documented By: IGNACIO Calcium Carbonate (Calcium Carbonate 750 Mg Tab.Chew) 750 mg PO Q4H PRN PRN Reason: Heartburn Ceftriaxone Sodium (Ceftriaxone Sodium 1 Gm Vial) 1 gm IVPUSH Q24H [facility] Last Admin: 08/23/24 20:14 Dose: 1 gm Documented By: CRISTINA Clonidine HCl (Clonidine Hcl 0.1 Mg Tablet) 0.1 mg PO TID [facility]; Protocol Last Admin: 08/24/24 12:10 Dose: 0.1 mg Documented By: IGNACIO Duloxetine HCl (Duloxetine Hcl 60 Mg Capsule.Dr) 60 mg PO BID@ [facility] Last Admin: 08/24/24 05:02 Dose: 60 mg Documented By: CRISTINA Enoxaparin Sodium (Enoxaparin Sodium 40 Mg/0.4 Ml Syringe) 40 mg SUBCUT Q24H [facility] Last Admin: 08/23/24 20:18 Dose: Not Given Documented By: CRISTINA Non-Admin Reason: Patient Refused Fluticasone/Umeclidinium/Vilanterol (Fluticasone/Umeclidinium/Vilanterol 200/62.5/25 Blst.W.Dev) 1 puff INHALE RDAILY [facility] Last Admin: 08/24/24 07:42 Dose: 1 puff Documented By: RAHEEM Gabapentin (Gabapentin 400 Mg Capsule) 1,200 mg PO TID@499,1199,1999 [facility] Last Admin: 08/24/24 12:09 Dose: 1,200 mg Documented By: IGNACIO Lorazepam (Lorazepam 1 Mg Tablet) 1 mg PO BEDTIME PRN PRN Reason: SEVERE Anxiety Last Admin: 08/23/24 21:44 Dose: 1 mg Documented By: CRISTINA Lorazepam (Lorazepam 0.5 Mg Tablet) 0.5 mg PO DAILY PRN PRN Reason: MODERATE Anxiety Last Admin: 08/24/24 09:52 Dose: 0.5 mg Documented By: IGNACIO Magnesium Hydroxide (Milk Of Magnesia 30 Ml Oral.Susp) 30 ml PO DAILY PRN PRN Reason: Constipation Melatonin (Melatonin 3 Mg Tablet) 6 mg PO BEDTIME PRN PRN Reason: Insomnia Last Admin: 08/23/24 21:44 Dose: 6 mg Documented By: CRISTINA Methylprednisolone Sodium Succinate (Methylprednisolone Sod Succ 125 Mg/2 Ml Vial) 40 mg IVPUSH Q8H [facility] Last Admin: 08/24/24 12:07 Dose: 40 mg Documented By: IGNACIO Non-Formulary Medication (Hyoscyamine Sulfate) 0.25 mg PO Q6H PRN PRN Reason: Abdominal Discomfort Oxcarbazepine (Oxcarbazepine 300 Mg Tablet) 600 mg PO BID@ [facility] Last Admin: 08/24/24 05:02 Dose: 600 mg Documented By: CRISTINA Oxycodone HCl (Oxycodone Hcl Immed Release 5 Mg Tablet) 5 mg PO Q6H PRN PRN Reason: Pain, Severe (Pain Scale 7-10) Last Admin: 08/24/24 12:07 Dose: 5 mg Documented By: IGNACIO Prazosin HCl (Prazosin Hcl 1 Mg Capsule) 2 mg PO DAILY@1999 [facility]; Protocol Last Admin: 08/23/24 20:10 Dose: 2 mg Documented By: CRISTINA Sodium Chloride (0.9 % Sodium Chloride Flush 3 Ml Syringe) 3 ml IVFLUSH [facility] Last Admin: 08/24/24 09:53 Dose: 3 ml Documented By: IGNACIO Sodium Chloride (Sodium Chloride 0.65 % Nasal 44 Ml Sprbtl) 1 spray NOSTRIL-B Q1H PRN PRN Reason: Congestion Last Admin: 08/23/24 20:26 Dose: 1 spray Documented By: CRISTINA Verapamil HCl (Verapamil Hcl 120 Mg Tablet) 120 mg PO BID@ [facility]; Protocol Last Admin: 08/24/24 05:03 Dose: 120 mg Documented By: CRISTINA Labs 08/24/24 07:29 08/24/24 07:29 Labs: Laboratory Results - last 24 hr 08/24/24 07:29 MCV 99.7 H MCH 31.8 MCHC 31.9 RDW 14.7 Plt Count 334 MPV 9.1 L Immature Gran % (Auto) 0.6 H Neut % (Auto) 88.8 H Lymph % (Auto) 4.2 L Roberts % (Auto) 6.3 Eos % (Auto) 0.0 Baso % (Auto) 0.1 Lymph # (Auto) 0.5 L Roberts # (Auto) 0.7 Eos # (Auto) 0.0 Baso # (Auto) 0.0 Abs Immat Gran (auto) 0.06 H Absolute Neuts (auto) 9.5 H Absolute Nucleated RBC 0.000 Nucleated RBC % (auto) 0.0 Anion Gap 14 Estim Creat Clear Calc 86.9 Estimated GFR > 60 Random Glucose 159 H Calcium 9.7 Microbiology Microbiology Results: Microbiology 08/22/24 17:18 Blood Culture - Preliminary Blood - Venous No growth after 24 hours. 08/22/24 15:30 Blood Culture - Preliminary Blood - Venous No growth after 24 hours. Assessment and Plan (1) Acute on chronic hypoxic respiratory failure: Status: Acute (2) Pneumonia: Status: Acute Plan 59-year-old female with a past medical history HTN, COPD, chronic respiratory failure on home oxygen, aortic stenosis, trigeminal neuralgia, neuropathy, HX CVA, mood disorder presented to the hospital today with a chief complaint of shortness of breath. Noted to be in acute COPD exacerbation. Acute on chronic hypoxic respiratory failure 2/2 Pneumonia and Acute COPD exacerbation required BiPAP for about 3 hours. Chest x-ray showed patchy bibasilar opacities right greater than left may represent atelectasis or developing pneumonia Patient has multiple admissions to the hospital for COPD exacerbation since November of [address]23. follows with Dr Henriquez as outpatient. Continue supplemental oxygen with a goal oxygen saturation of 88-93% Continue nebulizations standing and p.r.n. Wean Solu-Medrol /encourage incentive spirometry Azithromycin and Ceftriaxone started 08/22, afebrile normal WBC will transition to by mouth at a.m. Trending pulse oximetry when ready for discharge Seen by pulmonology they agree with the above treatment plan and recommend to wean Solu-Medrol for total 60mg daily. Recommend out of bed to chair and ambulation as tolerated obtain PT eval History of trigeminal neuralgia: Continue home oxcarbazepine, gabapentin, verapamil, started on oxycodone, no indication to up titrate the dose History of anxiety, depression: Continue home duloxetine, clonidine Hypogammaglobulinemia: Patient reports that she gets monthly IVIG injections at infusion center. She has received her infusion 08/22/2024. Disposition PT eval DVT prophylaxis: Lovenox Code status: Full code Quality Stroke Does the patient have a stroke diagnosis?: No VTE Prior VTE?: No VTE Risk Level:: Medical - moderate - high VTE Device Contraindication: Treatment Not Indicated VTE Drug Contraindication: Treatment Not Indicated
[2024-08-24] MEDS: cefuroxime axetiL 500 MG TABLET PO (15:12)
[2024-08-24] MEDS: Prazosin HCL 1 MG CAPSULE 2 MG PO (21:05)
[2024-08-24] MEDS: Aspirin Enteric Coated 81 MG TABLET.DR PO (21:07)
[2024-08-24] MEDS: Atorvastatin Calcium 80 MG TABLET PO (21:08)
[2024-08-24] MEDS: Azithromycin 500 MG TABLET PO (21:09)
[2024-08-24] MEDS: LORazepam 1 MG TABLET PO (21:11)
[2024-08-24] MEDS: Melatonin 3 MG TABLET 6 MG PO (21:11)
[2024-08-24] MEDS: Enoxaparin Sodium 40 MG/0.4 ML SYRINGE SUBCUT (21:12)
[2024-08-25] VITALS (9 sets, daily range): BP systolic 132–138; BP diastolic 52–68; PULSE 79–114; RESP 16–18; TEMP 36.6–36.7; O2SAT 92–96
[2024-08-25] MEDS: methylPREDNISolone Sod Succ 125 MG/2 ML VIAL 40 MG IVPUSH (03:14)
[2024-08-25] MEDS: cefuroxime axetiL 500 MG TABLET PO (03:14)
[2024-08-25] MEDS: Albuterol Sulfate (0.083%) 2.5 MG/3 ML VIAL.NEB INHALE ×2 (03:43→06:35)
[2024-08-25] MEDS: OXcarbazepine 300 MG TABLET 600 MG PO (05:55)
[2024-08-25] MEDS: Gabapentin 400 MG CAPSULE 1200 MG PO (05:56)
[2024-08-25] MEDS: DULoxetine HCl 60 MG CAPSULE.DR PO (05:56)
[2024-08-25] MEDS: Baclofen 10 MG TABLET 15 MG PO (05:56)
[2024-08-25] MEDS: VerapamiL HCL 120 MG TABLET PO (05:56)
[2024-08-25] MEDS: oxyCODONE HCl Immed Release 5 MG TABLET PO (06:46)
[2024-08-25] MEDS: Albuterol/Iprat 2.5/0.5MG 3 ML AMPUL.NEB INHALE ×2 (07:51→11:26)
[2024-08-25] MEDS: Fluticasone/Umeclidinium/Vilanterol 200/62.5/25 BLST.W.DEV 1 PUFF INHALE (07:51)
[2024-08-25] MEDS: cloNIDine HCL 0.1 MG TABLET PO (08:04)
[2024-08-25] MEDS: LORazepam 0.5 MG TABLET PO (08:20)
[2024-08-25] MEDS: Butalb/Acetamin/Caff 50/325/40 TABLET 1 TAB PO (08:20)
[2024-08-25] MEDS: HYDROcodone Bit/Acetam 5/325 TABLET 1 TAB PO (10:46)
[2024-08-25] MEDS: 0.9 % Sodium Chloride Flush 3 ML SYRINGE IVFLUSH (10:49)
[2024-08-25] MEDS: predniSONE 20 MG TABLET 40 MG PO (10:49)
--- NOTE | 2024-08-25 12:02 | PM.DS ---
DS: Providers Provider Date of Service: 08/25/24 Date of admission: 08/22/24 21:19 Date of discharge: 08/25/24 Primary care physician: Liyah Patterson MD Consults: 08/22/24 21:19 Consult to Pulmonology Routine Consulting Provider: [facility] Reason for consultation: Rec COPD DS: Diagnosis Discharge Diagnosis (1) Acute on chronic hypoxic respiratory failure: Status: Acute (2) Pneumonia: Status: Acute DS: Summary Hospital Course Hospital Course: History of presenting illness: Date of Service: 08/22/24 Chief Complaint: SOB 59-year-old female with a past medical history HTN, COPD, chronic respiratory failure on home oxygen, aortic stenosis, trigeminal neuralgia, neuropathy, HX CVA, mood disorder presented to the hospital today with a chief complaint of shortness of breath. Patient reported that for the past 2 days she has been having shortness of breath chest pain gradually worsening. Since last night she used her home inhaler/nebulizer at least 7 times with no significant improvement. Today she went to her infusion center for IVIG infusion which she gets every month; post infusion she felt more shortness of breath. Denies any reaction to the infusion. Subsequently sent her to the hospital for further evaluation. Patient denies any chest pain or palpitations. Reports having cough with occasional sputum production. Denies any fevers. Denies any sick contacts. Patient reports that she got lung infection in November of 2023 and since then she has been having at least 15 admissions to the hospital for COPD exacerbation. Follows with pulmonology as outpatient-Dr. Martinez Mcfarlane. Reports that she was recently discharged from the hospital on August 11. Today she also called her director of recruiting office and who gave her prescriptions for steroids and antibiotics. Patient reported during the prior admissions to the hospital she was on BiPAP but never intubated. Review of all other systems is negative except mentioned above ER course: Per ER team, patient on presentation noted to be in acute shortness of breath, mild respiratory distress, speaking in 1 word sentences; patient was placed on the BiPAP with significant improvement in the respiratory status. Hospital course: 59-year-old female with a past medical history HTN, COPD, chronic respiratory failure on home oxygen, aortic stenosis, trigeminal neuralgia, neuropathy, HX CVA, mood disorder presented to the hospital today with a chief complaint of shortness of breath and admitted following medical issues. Acute on chronic hypoxic respiratory failure due to Acute COPD exacerbation and possible developing pneumonia, treated with IV Solu Medrol, IV ceftriaxone and IV azithromycin and was continued on supplemental oxygen with a goal of oxygen saturation 88 to 93% patient responded well to above treatment, was evaluated by director of recruiting who agreed with the above treatment plan, since she is hemodynamically stable with finger oximetry 90-94% on 1.5 L therefore she is being discharged home on tapering dose of steroids and to finish 2 more days of Ceftin, recommend ambulation as tolerated and to use incentive spirometry, recommend outpatient follow-up with primary director of recruiting. History of trigeminal neuralgia: Continue home oxcarbazepine, gabapentin, verapamil, recommend outpatient follow-up with primary care physician if wishes to increase dose of oxycodone History of anxiety, depression: Continue home duloxetine, clonidine. Hypogammaglobulinemia: Receives monthly IVIG injections at infusion center, last infusion 08/22/2024. Time Attestation Discharge Coordination Time (in mins): 40 Quality: Safe Use of Opioids Does Pt have an Active Cancer Diagnosis on the Problem List?: No Quality: Stroke Does the patient have a stroke diagnosis?: No Physical Exam Vital Signs: Vital Signs: Last Vital Signs Temp 97.8 F 08/25/24 07:03 Pulse 114 H 08/25/24 11:27 Resp 18 08/25/24 11:27 BP 132/68 08/25/24 07:03 Pulse Ox 92 08/25/24 07:03 O2 Del Method Nasal Cannula 08/25/24 07:03 O2 Flow Rate 2 08/25/24 07:03 Oxygen Flow Rate 2 08/22/24 14:57 BMI result Body Mass Index 40.9 Const: Other: General resting comfortably in no acute distress. Neck no JVD. CVS regular rate rhythm, Respiratory lungs no wheeze, no rhonchi, no respiratory distress Gastrointestinal abdomen soft, non tender, bowel sounds audible, no guarding , no rigidity. Extremities no edema Neuro non focal Skin no rash Psych appropriate affect DS: Data Data Completed and Pending Completed studies during hospitalization [Text1]: Procedures Assistance with Respiratory Ventilation, Less than 24 Consecutive Hours, Continuous Positive Airway Pressure (08/03/24) Labs on day of discharge: Preliminary micro results at discharge 08/22/24 17:18 Blood Culture - Preliminary Blood - Venous No growth after 48 hours. 08/22/24 15:30 Blood Culture - Preliminary Blood - Venous No growth after 48 hours. Discharge Plan Discharge Anticipated Discharge Date/Time: 08/25/24 11:51 Patient Disposition: Home, Self-Care Discharge Diagnosis: Acute on chronic hypoxic respiratory failure Referrals: Liyah Patterson MD [Primary Care Provider] - 1 Week Discharge Medications: New cefuroxime axetil 500 mg Tablet 500 mg PO Q12H Qty: 5 0RF prednisone 10 mg tablet 10 mg PO DIRECTED Qty: 30 0RF Rx Instructions: see taper instructions; 40 mg Daily x3 days, 30 mg daily x3 days, 20 mg daily x3 days, 10 mg daily x3 days Continued ipratropium-albuterol 0.5 mg-3 mg(2.5 mg base)/3 mL solution for nebulization 3 ml inhalation Q4H PRN (Reason: for dyspnea) Qty: 180 11RF baclofen 10 mg tablet 15 mg PO TID@0500,1200,1999 verapamil 120 mg tablet 120 mg PO BID@050,1999 lorazepam 0.5 mg tablet 0.5 mg PO DAILY PRN (Reason: MODERATE Anxiety) clonidine HCl 0.1 mg Tablet 0.1 mg PO TID 90 Days Qty: 270 0RF Protocol: Hold for SBP< HOLD for SBP < : 90 Trelegy Ellipta 200-62.5-25 mcg blister with device 1 ea INHALATION DAILY hydrocodone-acetaminophen 5-325 mg tablet 1 tab PO DAILY Rx Instructions: Partial Fill upon patient request. atorvastatin 80 mg tablet 80 mg PO DAILY@1999 qnyfjoguix-vsoroputpdlkz-eqcj 50-325-40 mg tablet 1 tab PO DAILY MRX1 PRN (Reason: Headache) hyoscyamine sulfate 0.125 mg tablet 0.25 mg PO Q6H PRN (Reason: Abdominal Discomfort) gabapentin 300 mg capsule 1,200 mg PO TID@0500,1200,1999 oxcarbazepine 600 mg tablet 600 mg PO BID@0500,1999 lorazepam 1 mg tablet 1 mg PO BEDTIME PRN (Reason: SEVERE Anxiety) duloxetine 60 mg capsule,delayed release(DR/EC) 60 mg PO BID@0500,2000 (DME) nebulizer and compressor Device See Rx Instructions .Route Qty: 1 0RF Rx Instructions: As directed albuterol sulfate 90 mcg/actuation HFA aerosol inhaler 2 puff inhalation Q4H PRN (Reason: Shortness Of Breath Or Wheezing) aspirin 81 mg tablet,delayed release (DR/EC) 81 mg PO DAILY@1999 calcium carbonate-vitamin D3 600 mg-5 mcg (200 unit) tablet 1 tab PO DAILY@1999 prazosin 2 mg capsule 2 mg PO DAILY@1999 (DME) Oxygen Home Use Kit See Rx Instructions .Route Rx Instructions: As directed Discharge Orders: Discharge Order (Routine); Ordered 08/25/24 Ordered By: Ted Glez Diet: Advance to usual diet Activity on Discharge: As tolerated Stand Alone Forms: Patient Portal Discharge page Print Language: Monegasque Care Plan Goals: Acute on chronic hypoxic respiratory failure due to COPD exacerbation/atelectasis possible pneumonia Take Ceftin 500 mg twice daily for 2 more days Take prednisone tapering dose Continue home inhalers Continue home oxygen 1 L for sleep, 2 L with rest and 3 L with exertion Health Concerns: Take all home medications as before Plan of Treatment: Outpatient follow-up with primary care physician call for appointment Assessment: As above
--- NOTE | 2024-08-25 12:52 | P.F2F_ITS ---
Service Date Service Date: 08/25/24 Encounter Date of encounter: 08/25/24 Reasons for Services Signs and symptoms assessed: Chronic hypoxia/decrease mobility due to multiple medical issues/prevent rehospitalization Reason for assisted: teach disease management Homebound: Leaving the home is medically contraindicated at this time without the asist of a device and/or another person due th the listed conditions above and below. Reason homebound: pain with ambulation Certification: Based on the above findings, I certify that this patient is confined to the home and needs intermittent assisted care, physical therapy and/or speech therapy, or continues to need occupational therapy. The patient is under my care, and I have initiated the establishment of the plan of care. The patient will be followed by a physician who will periodically review the plan of care. Time Spent With Patient Time: Total time managing care of this patient today ____ minutes.
--- NOTE | 2024-08-25 13:10 | MHC.CM.PN ---
Pt is medically cleared for discharge home with [facility], pts will transport her home today.
== END 2024-08-25 13:32 | disposition home health service (06) | DRG 139 ==
LOC: HO.ED 20:18 → HO.EDOVER 21:37 → HO.IMC 08-23 08:29
PROVIDERS: Physician Assistant; Student in an Organized Health Care Education/Training Program; Admitting Provider Hospitalist; Emergency Provider Emergency Medicine Emergency Medical Services; PCP Family Medicine; Visit Provider Hospitalist
DX: J18.9 Pneumonia, unspecified organism (principal); J96.21 Acute and chronic respiratory failure with hypoxia; D80.1 Nonfamilial hypogammaglobulinemia; J44.0 Chronic obstructive pulmonary disease with (acute) lower respiratory infection; Z99.81 Dependence on supplemental oxygen; G50.0 Trigeminal neuralgia; F41.9 Anxiety disorder, unspecified; J98.11 Atelectasis; F32.A Depression, unspecified; J44.1 Chronic obstructive pulmonary disease with (acute) exacerbation; E78.2 Mixed hyperlipidemia; Z20.822 Contact with and (suspected) exposure to COVID-19; Z87.891 Personal history of nicotine dependence; Z79.61 Long term (current) use of immunomodulator; Z79.82 Long term (current) use of aspirin; Z79.899 Other long term (current) drug therapy
CPT/HCPCS: 0241U; 36415; 71045; 80048; 80053; 82803; 83605; 83690; 83880; 85025; 87040; 93005; 94640; 97162; 97530; 99285; J0456; J0696; J1650; J2919

== ENCOUNTER → 2024-08-22 14:59 | Outpatient (BNV) | payer BC, SELFPAY | PROVIDERS: Emergency Provider Emergency Medicine Emergency Medical Services; PCP Family Medicine; Visit Provider Radiology Diagnostic Radiology | DX: J98.11 Atelectasis (principal) | CPT/HCPCS: 71045 ==

== ENCOUNTER → 2024-08-22 15:44 | Outpatient (BNV) | payer BC, SELFPAY | PROVIDERS: Admitting Provider Hospitalist; Emergency Provider Emergency Medicine Emergency Medical Services; PCP Family Medicine; Visit Provider Internal Medicine | DX: R06.02 Shortness of breath (principal) | CPT/HCPCS: 93010 ==

== ENCOUNTER → 2024-08-22 21:19 | Outpatient (BNV) | payer BC, SELFPAY | PROVIDERS: Admitting Provider Hospitalist; Emergency Provider Emergency Medicine Emergency Medical Services; PCP Family Medicine; Visit Provider Internal Medicine Pulmonary Disease | DX: J44.1 Chronic obstructive pulmonary disease with (acute) exacerbation (principal) | CPT/HCPCS: 99232 ==

== ENCOUNTER → 2024-08-22 21:19 | Outpatient (BNV) | payer BC, SELFPAY | PROVIDERS: Admitting Provider Hospitalist; Emergency Provider Emergency Medicine Emergency Medical Services; PCP Family Medicine; Visit Provider Student in an Organized Health Care Education/Training Program | DX: J96.21 Acute and chronic respiratory failure with hypoxia (principal); J44.1 Chronic obstructive pulmonary disease with (acute) exacerbation; J18.9 Pneumonia, unspecified organism; J98.4 Other disorders of lung | CPT/HCPCS: 99223; 99232 ==

== ENCOUNTER 2024-09-15 09:55 | Outpatient (REF) | payer BC, SELFPAY ==
[2024-09-15 10:14] LABS: MANUAL DIFF FLAG NO
[2024-09-15 10:31] LABS: Basophils Percent Auto 0.3 % (0-2); Eosinophils Absolute Auto 0.1 X10*3/uL (0.0-0.4); Eosinophils Percent Auto 1.6 % (0-4); Hematocrit 45.8 % (37.0-47.0); Imm Gran Abs Auto 0.03 X10*3/uL (0.00-0.03); Imm Gran Pct Auto 0.3 % (0.0-0.4); Lymphocytes Absolute Auto 1.5 X10*3/uL (1.2-4.9); Lymphocytes Percent Auto 17.2 % (20-40); Mean Corpuscular HGB Conc 32.8 g/dl (31.0-35.0); Mean Corpuscular Hemoglobin 31.9 pg (27.0-33.0); Mean Corpuscular Volume 97.4 fL (80.0-98.0); Mean Platelet Volume 9.1 fL (9.4-12.3); Monocytes Absolute Auto 0.6 X10*3/uL (0.1-1.2); Monocytes Percent Auto 7.3 % (2-11); Neutrophils Absolute Auto 6.5 x10*3/uL (2.0-8.3); Neutrophils Percent Auto 73.3 % (45-73); Platelet Count 355 X10*3/uL (160-400); Red Cell Distribution Width 13.3 % (11.0-16.0); White Blood Count 8.8 X10*3/uL (4.8-10.8)
[2024-09-15 11:15] LABS: Erythrocyte Sedimentation Rate 14 MM/HR (0-20)
[2024-09-15 12:56] LABS: Anion Gap 13 (12-20); Blood Urea Nitrogen 12 mg/dL (9-16); Calcium 10.3 mg/dL (8.4-10.2); Carbon Dioxide 27 mmol/L (22-29); Chloride 106 mmol/L (96-108); Estimated Glomerular Filt Rate > 60; Glucose Random 103 mg/dL (60-115); Potassium 4.2 mmol/L (3.3-5.1); Sodium 142 mmol/L (135-145)
[2024-09-18 15:23] LABS: Immunoglobulin G Subclass 1 418 mg/dL (382-929); Immunoglobulin G Subclass 2 241 mg/dL (241-700); Immunoglobulin G Subclass 3 19 mg/dL (22-178); Immunoglobulin G Subclass 4 17.3 mg/dL (4-86); Immunoglobulin G Total 726 mg/dL (600-1540)
== END 2024-09-15 09:56 | disposition home or self-care (01) ==
LOC: HO.LAB 09:55
PROVIDERS: PCP Family Medicine; Visit Provider Hospitalist
DX: D80.1 Nonfamilial hypogammaglobulinemia (principal); J98.4 Other disorders of lung
CPT/HCPCS: 36415; 80048; 82784; 85025; 85652

== ENCOUNTER 2024-09-23 19:55 | Emergency (ER) | payer BC, SELFPAY ==
--- NOTE | ~2024-09-23 | XR_ITS ---
CLINICAL HISTORY: dyspnea EXAM: One view chest x-ray COMPARISON: None FINDINGS: Normal cardiac, mediastinal, and hilar contours. Normal heart size. No pleural effusion or pneumothorax. Lungs are clear. No acute bone finding. IMPRESSION: 1. No acute cardiopulmonary process demonstrated. This document has been electronically signed by: Kip Arce MD on 09/23/2024 21:34:25
--- NOTE | 2024-09-23 20:06 | ECG_ITS ---
Test Reason : sob Blood Pressure : */* mmHG Vent. Rate : 84 BPM Atrial Rate : 84 BPM P-R Int : 138 ms QRS Dur : 88 ms QT Int : 388 ms P-R-T Axes : 59 64 39 degrees QTcB Int : 458 ms Normal sinus rhythm Normal ECG When compared with ECG of 22-Aug-2024 15:36, Nonspecific T wave abnormality now evident in Inferior leads Referred By: Generic ED Physician Electronically Signed By: Eladio Nelson
[2024-09-23 20:11] VITALS: BP 140/90; PULSE 88; O2SAT 95
[2024-09-23 20:12] VITALS: BMI 36.1
[2024-09-23 20:18] LABS: MANUAL DIFF FLAG NO
[2024-09-23 20:19] LABS: Basophils Percent Auto 0.8 % (0-2); Eosinophils Absolute Auto 0.4 X10*3/uL (0.0-0.4); Eosinophils Percent Auto 6.6 % (0-4); Hematocrit 39.6 % (37.0-47.0); Hemoglobin 13.2 g/dl (12.0-16.0); Imm Gran Abs Auto 0.01 X10*3/uL (0.00-0.03); Imm Gran Pct Auto 0.2 % (0.0-0.4); Lymphocytes Absolute Auto 1.3 X10*3/uL (1.2-4.9); Lymphocytes Percent Auto 24.4 % (20-40); Mean Corpuscular HGB Conc 33.3 g/dl (31.0-35.0); Mean Corpuscular Hemoglobin 31.9 pg (27.0-33.0); Mean Corpuscular Volume 95.7 fL (80.0-98.0); Mean Platelet Volume 8.9 fL (9.4-12.3); Monocytes Absolute Auto 0.7 X10*3/uL (0.1-1.2); Monocytes Percent Auto 12.5 % (2-11); Neutrophils Absolute Auto 2.9 x10*3/uL (2.0-8.3); Neutrophils Percent Auto 55.5 % (45-73); Platelet Count 310 X10*3/uL (160-400); Red Blood Count 4.14 X10*6/uL (4.20-5.50); Red Cell Distribution Width 14.2 % (11.0-16.0); White Blood Count 5.3 X10*3/uL (4.8-10.8)
[2024-09-23 20:23] LABS: VBG HCO3 36 mmol/L (22-26); VBG pCO2 53 mmHg; VBG pH 7.43 (7.32-7.43); VBG pO2 63 mmHg
[2024-09-23 20:23] LABS: Venous Blood Gas Refer to POC result
[2024-09-23 20:26] VITALS: BP 180/73; PULSE 84; RESP 23; TEMP 36.9; O2SAT 96
[2024-09-23 20:27] LABS: INTERNATIONAL NORM RATIO 0.9 (0.9-1.1); Prothrombin Time 10.2 SEC (10.9-12.4)
[2024-09-23 20:34] LABS: Lactic Acid 1.5 mmol/L (0.5-2.0)
[2024-09-23 20:39] LABS: B Type Natriuretic Peptide 28 pg/mL (<100)
[2024-09-23 20:41] LABS: Alanine Aminotransferase 25 U/L (0-31); Alkaline Phosphatase 66 U/L (39-117); Anion Gap 13 (12-20); Aspartate Amino Transferase 37 U/L (5-31); Bilirubin Direct < 0.2 mg/dL (0.0-0.5); Bilirubin Total 0.2 mg/dL (0.0-1.0); Blood Urea Nitrogen 12 mg/dL (9-16); Calcium 9.7 mg/dL (8.4-10.2); Carbon Dioxide 29 mmol/L (22-29); Chloride 106 mmol/L (96-108); Creatinine Clr Calc Pharmacy 78.7; Estimated Glomerular Filt Rate > 60; Glucose Random 108 mg/dL (60-115); Lipase 26 U/L (8-78); Potassium 3.8 mmol/L (3.3-5.1); Sodium 144 mmol/L (135-145); Total Protein 7.5 g/dL (6.5-8.0); Troponin-I High Sensitivity 10.3 ng/L (<3.5-17.0)
[2024-09-23 20:43] LABS: Magnesium 2.1 mg/dL (1.6-2.6)
[2024-09-23 21:04] LABS: Appearance Urine Cloudy; Color Urine Yellow; Glucose Urine UA Negative (Negative); Leukocyte Esterase Urine Negative (Negative); Nitrite Urine Negative (Negative); PH 6.5 (5.0-9.0); Urine Blood Negative (Negative); Urine Ketones Negative (Negative); Urine Protein Negative (Neg-Trace)
--- NOTE | 2024-09-23 21:34 | ED_ITS ---
HPI - SOB/Dyspnea General Chief Complaint: Dyspnea Stated Complaint: Diff breathing Time Seen by Provider: 09/23/24 21:24 Source: patient Mode of arrival: EMS Limitations: no limitations History of Present Illness ED Provider: HPI Narrative: Patient's history of COPD on home oxygen 2-3 L as needed been here multiple times for COPD exacerbation patient has been feeling increased short of breath for last 2 3 days got worse today use your nebulizing treatment x2 at home prior to arrival and EMS also give her another treatment was saturating 95% on 2 L per EMS on arrival patient was saturating 95% on 2 L does have cough without any expectoration no chest pain no fever no chills no increased leg swelling Related Data Home Medications ?Medication ?Instructions ?Recorded ?Confirmed atorvastatin 80 mg tablet 80 mg PO DAILY@199903/04/23 08/22/24 gmdpijsvhs-rbkmssytfxdlw-pylnfdko 1 tab PO DAILY MRX1 PRN Headache 03/04/23 08/22/24 50 mg-325 mg-40 mg tablet duloxetine 60 mg capsule,delayed 60 mg PO BID@050,199903/04/23 08/22/24 release gabapentin 300 mg capsule 1,200 mg PO TID@0500,1200,199903/04/23 08/22/24 hyoscyamine sulfate 0.125 mg tablet 0.25 mg PO Q6H PRN Abdominal 03/04/23 08/22/24 Discomfort lorazepam 1 mg tablet 1 mg PO BEDTIME PRN SEVERE Anxiety 03/04/23 08/22/24 oxcarbazepine 600 mg tablet 600 mg PO BID@0500,199903/04/23 08/22/24 Oxygen Home Use 04/16/23 03/10/24 prazosin 2 mg capsule 2 mg PO DAILY@199904/16/23 08/22/24 albuterol sulfate 90 mcg/actuation 2 puff inhalation Q4H PRN 01/31/24 08/22/24 aerosol inhaler Shortness Of Breath Or Wheezing aspirin 81 mg tablet,delayed 81 mg PO DAILY@199905/22/24 08/22/24 release calcium 600 mg (as 1 tab PO DAILY@199906/20/24 08/22/24 carbonate)-vitamin D3 5 mcg (200 unit) tablet baclofen 10 mg tablet 15 mg PO TID@0500,1200,199907/02/24 08/22/24 verapamil 120 mg tablet 120 mg PO BID@0500,199907/02/24 08/22/24 lorazepam 0.5 mg tablet 0.5 mg PO DAILY PRN MODERATE 08/03/24 08/22/24 Anxiety fluticasone fur. 200 mcg-umeclid 1 ea inhalation DAILY 08/22/24 08/22/24 62.5 mcg-vilant 25 mcg inhalat.powder (Trelegy Ellipta) hydrocodone 5 mg-acetaminophen 325 1 tab PO DAILY 08/22/24 08/22/24 mg tablet Previous Rx's ?Medication ?Instructions ?Recorded nebulizer and compressor #1 ea 12/16/23 ipratropium 0.5 mg-albuterol 3 mg 3 ml inhalation Q4H PRN for 03/02/24 (2.5 mg base)/3 mL nebulization dyspnea #180 mL soln clonidine HCl 0.1 mg tablet 0.1 mg PO TID 90 days #270 tabs 08/11/24 cefuroxime axetil 500 mg tablet 500 mg PO Q12H #5 tabs 08/25/24 prednisone 10 mg tablet 10 mg PO DIRECTED #30 tabs 08/25/24 prednisone 20 mg tablet 40 mg (2 x 20 mg) PO DAILY #10 tabs 09/24/24 Allergies Allergy/AdvReac Type Severity Reaction Status Date / Time Iodinated Contrast Media Allergy Intermediate HIVES Verified 09/23/24 20:15 [IV CONTRAST] latex [LATEX] Allergy Unknown RASH Verified 09/23/24 20:15 adhesive tape Allergy Rash Verified 09/23/24 20:15 morphine [MORPHINE] AdvReac Unknown VOMITING Verified 09/23/24 20:15 Review of Systems 2 Review of Systems: Yes all other systems are reviewed and are negative [facility] Past Medical History Medical History Panic disorder Hypertension Chronic hypercapnic respiratory failure Aortic stenosis Obesity (BMI 30-39.9) Asthma Acute exacerbation of chronic obstructive pulmonary disease Chronic lung disease Hypogammaglobulinemia Smoker JUANITO (obstructive sleep apnea) Allergies Elevated troponin COPD (chronic obstructive pulmonary disease) Trigeminal neuralgia Pulmonary nodules Mixed hyperlipidemia Peripheral neuropathy Tobacco use disorder Mood disorder Surgical History History of esophagogastroduodenoscopy (EGD) History of colonoscopy History of lumbar discectomy History of tubal ligation History of excision of mass History of shoulder surgery Social History Social History Household Members: Spouse Housing: Condominium Do you presently have visiting nurse or other home services: No Alcohol intake: current Alcohol intake frequency: holidays/special occasions only Alcohol type: hard liquor Comment: patient declines bed alarm, ongoing, declines HFR protocol Patient Tobacco Use Status: Former Tobacco user Tobacco use type: Cigarette Cigarette Packs Per Day: 4 Cigarettes Per Day: 80.0 Years Smoked: 40 e-Cigarette/Vaping Use: Former Use Second Hand Smoke Exposure: No Substance Use Type: Marijuana Advance Directives Date on File: 03/09/23 service: No Physical Exam 2 Vital Signs: Vital Signs: Last Vital Signs Temp 98 F 09/24/24 00:13 Pulse 84 09/24/24 01:22 Resp 20 09/24/24 01:22 BP 184/67 H 09/24/24 01:22 Pulse Ox 95 09/24/24 01:23 O2 Del Method Nasal Cannula 09/24/24 01:22 O2 Flow Rate 4 09/23/24 20:26 BMI result Body Mass Index 36.1 Appearance: Alert. Oriented X3. No acute distress. Eyes: No pallor or icterus ENT: Pharynx normal. Oral Mucosa moist Neck: Normal inspection. Neck supple. CVS: Normal heart rate and rhythm. Pulses normal. Respiratory: No respiratory distress. Equal air entry bilateral, bilateral wheezing with prolonged expiration no crackles Abdomen: Soft and nontender. Bowel sounds are present, no mass palpable, no CVA tenderness Skin: Skin warm and dry. Normal skin color. Normal skin turgor. Extremities: No lower extremity edema. No calf tenderness Neuro: Oriented X 3. No motor deficit. No sensory deficit.No cerebellar signs , cranial nerves II-XII intact Medications Administered Discontinued Medications Generic Name Dose Route Start Last Admin Trade Name Freq PRN Reason Stop Dose Admin Albuterol Sulfate 5 mg 09/24/24 00:21 09/24/24 00:55 Albuterol Sulfate (0.083%) 2.5 Mg/3 Ml Vial.Neb INHALE 09/24/24 00:22 5 mg ONCE ONE Administration Lorazepam 1 mg 09/23/24 23:17 09/23/24 23:57 Lorazepam 1 Mg Tablet PO 09/23/24 23:18 1 mg ONCE ONE Administration Methylprednisolone Sodium Succinate 125 mg 09/23/24 22:30 09/23/24 22:43 Methylprednisolone Sod Succ 125 Mg/2 Ml Vial IVPUSH 09/23/24 22:31 125 mg ONCE ONE Administration Verapamil HCl 120 mg 09/23/24 23:17 09/23/24 23:56 Verapamil Hcl Sr 120 Mg Tablet.Er PO 09/23/24 23:18 120 mg ONCE ONE Administration Protocol Medical Decision Making Medical Decision Making MDM Narrative: Patient's COPD exacerbation improved after Solu-Medrol and DuoNeb treatments saturating 95-96% at 2 L nasal cannula patient does have oxygen at home no acute finding and chest x-ray no signs of CHF patient will be discharged on prednisone venous gases were also with mild hypoxia no hypercapnia Differential Diagnosis Differential Diagnoses: The differential diagnosis associated with the presentation includes Admission/Observation Consideration of admission/observation: Escalation of care including admission/observation considered Lab Data [facility] Lab Attestation statement: I reviewed the patient's lab results. 09/23/24 20:10 09/23/24 20:10 Labs: Lab Results 09/23/24 09/23/24 09/23/24 Range/Units 20:10 20:19 20:58 WBC 5.3 (4.8-10.8) X10*3/uL RBC 4.14 L (4.20-5.50) X10*6/uL Hgb 13.2 (12.0-16.0) g/dl Hct 39.6 (37.0-47.0) % MCV 95.7 (80.0-98.0) fL MCH 31.9 (27.0-33.0) pg MCHC 33.3 (31.0-35.0) g/dl RDW 14.2 (11.0-16.0) % Plt Count 310 (160-400) X10*3/uL MPV 8.9 L (9.4-12.3) fL Immature Gran % (Auto) 0.2 (0.0-0.4) % Neut % (Auto) 55.5 (45-73) % Lymph % (Auto) 24.4 (20-40) % [place] % (Auto) 12.5 H (2-11) % Eos % (Auto) 6.6 H (0-4) % Baso % (Auto) 0.8 (0-2) % Lymph # (Auto) 1.3 (1.2-4.9) X10*3/uL [place] # (Auto) 0.7 (0.1-1.2) X10*3/uL Eos # (Auto) 0.4 (0.0-0.4) X10*3/uL Baso # (Auto) 0.0 (0.0-0.2) X10*3/uL Abs Immat Gran (auto) 0.01 (0.00-0.03) X10*3/uL Absolute Neuts (auto) 2.9 (2.0-8.3) x10*3/uL Absolute Nucleated RBC 0.000 (0.0-0.012) X10*3/uL Nucleated RBC % (auto) 0.0 (0.0-0.2) /100WBC PT 10.2 L (10.9-12.4) SEC INR 0.9 (0.9-1.1) VBG pH 7.43 (7.32-7.43) VBG pCO2 53 mmHg VBG pO2 63 mmHg VBG HCO3 36 H (22-26) mmol/L VBG O2 Saturation 92.0 % VBG Base Excess 10.0 mmol/L Sodium 144 (135-145) mmol/L Potassium 3.8 (3.3-5.1) mmol/L Chloride 106 (96-108) mmol/L Carbon Dioxide 29 (22-29) mmol/L Anion Gap 13 (12-20) BUN 12 (9-16) mg/dL Creatinine 0.75 (0.5-1.4) mg/dL Estim Creat Clear Calc 78.7 Estimated GFR > 60 Random Glucose 108 (60-115) mg/dL Lactic Acid 1.5 (0.5-2.0) mmol/L Calcium 9.7 (8.4-10.2) mg/dL Magnesium 2.1 (1.6-2.6) mg/dL Total Bilirubin 0.2 (0.0-1.0) mg/dL Direct Bilirubin < 0.2 (0.0-0.5) mg/dL AST 37 H (5-31) U/L ALT 25 (0-31) U/L Alkaline Phosphatase 66 (39-117) U/L Troponin I High Sens 10.3 (<3.5-17.0) ng/L B-Natriuretic Peptide 28 (<100) pg/mL Total Protein 7.5 (6.5-8.0) g/dL Albumin 4.0 (3.5-5.0) g/dL Lipase 26 (8-78) U/L Urine Color Yellow Urine Appearance Cloudy Urine pH 6.5 (5.0-9.0) Ur Specific [place] 1.020 (1.005-1.025) Urine Protein Negative (Neg-Trace) mg/dL Urine Glucose (UA) Negative (Negative) mg/dL Urine Ketones Negative (Negative) mg/dL Urine Blood Negative (Negative) Urine Nitrite Negative (Negative) Ur Leukocyte Esterase Negative (Negative) Independent Interpretation I performed an independent interpretation of an: EKG Interpretation: Normal sinus rhythm heart rate 84 beats per minute normal interval normal axis no acute STT changes impression normal EKG Radiology Impression Discussion of test interpretation with radiology: I have reviewed the radiologist's reading. Radiologist Impression: MPRESSION: 1. No acute cardiopulmonary process demonstrated. This document has been electronically signed by: Kip Arce MD on 09/23/2024 21:34:25 External Record Review External record reviewed: Inpatient record, Prior outpatient radiology and Primary care record Discharge Plan Discharge Clinical Impression: Acute exacerbation of chronic obstructive pulmonary disease Patient Disposition: Home, Self-Care Instructions: COPD (Chronic Obstructive Pulmonary Disease) (DC) Additional Instructions: Continue to use nebulizing treatment/oxygen/CPAP as needed Prednisone as prescribed Follow up with your archivist political history/PCP Prescriptions: New prednisone 20 mg tablet 40 mg PO DAILY Qty: 10 0RF No Action ipratropium-albuterol 0.5 mg-3 mg(2.5 mg base)/3 mL solution for nebulization 3 ml inhalation Q4H PRN (Reason: for dyspnea) Qty: 180 11RF baclofen 10 mg tablet 15 mg PO TID@0500,1200,2000 verapamil 120 mg tablet 120 mg PO BID@0500,2000 lorazepam 0.5 mg tablet 0.5 mg PO DAILY PRN (Reason: MODERATE Anxiety) clonidine HCl 0.1 mg Tablet 0.1 mg PO TID 90 Days Qty: 270 0RF Protocol: Hold for SBP< HOLD for SBP < : 90 Trelegy Ellipta 200-62.5-25 mcg blister with device 1 ea INHALATION DAILY hydrocodone-acetaminophen 5-325 mg tablet 1 tab PO DAILY Rx Instructions: Partial Fill upon patient request. cefuroxime axetil 500 mg Tablet 500 mg PO Q12H Qty: 5 0RF prednisone 10 mg tablet 10 mg PO DIRECTED Qty: 30 0RF Rx Instructions: see taper instructions; 40 mg Daily x3 days, 30 mg daily x3 days, 20 mg daily x3 days, 10 mg daily x3 days atorvastatin 80 mg tablet 80 mg PO DAILY@1999 fzmpvcduvk-jbsucfvncswlo-igzz 50-325-40 mg tablet 1 tab PO DAILY MRX1 PRN (Reason: Headache) hyoscyamine sulfate 0.125 mg tablet 0.25 mg PO Q6H PRN (Reason: Abdominal Discomfort) gabapentin 300 mg capsule 1,200 mg PO TID@0500,1200,1999 oxcarbazepine 600 mg tablet 600 mg PO BID@0500,1999 lorazepam 1 mg tablet 1 mg PO BEDTIME PRN (Reason: SEVERE Anxiety) duloxetine 60 mg capsule,delayed release(DR/EC) 60 mg PO BID@0500,1999 (DME) nebulizer and compressor Device See Rx Instructions .Route Qty: 1 0RF Rx Instructions: As directed albuterol sulfate 90 mcg/actuation HFA aerosol inhaler 2 puff inhalation Q4H PRN (Reason: Shortness Of Breath Or Wheezing) aspirin 81 mg tablet,delayed release (DR/EC) 81 mg PO DAILY@1999 calcium carbonate-vitamin D3 600 mg-5 mcg (200 unit) tablet 1 tab PO DAILY@1999 prazosin 2 mg capsule 2 mg PO DAILY@1999 (DME) Oxygen Home Use Kit See Rx Instructions .Route Rx Instructions: As directed Interventions: ED Discharge Assessment Last Done: 09/24/24 00:13 Discharge Date/Time: 09/24/24 02:05 Print Language: Belgian
[2024-09-23] MEDS: methylPREDNISolone Sod Succ 125 MG/2 ML VIAL IVPUSH (22:43)
[2024-09-23 23:34] VITALS: BP 186/83; PULSE 81; RESP 20; TEMP 36.6; O2SAT 96
[2024-09-23 23:56] VITALS: BP 186/83; PULSE 76
[2024-09-23] MEDS: VerapamiL HCL SR 120 MG TABLET.ER PO (23:56)
[2024-09-23] MEDS: LORazepam 1 MG TABLET PO (23:57)
[2024-09-24 00:13] VITALS: BP 186/83; PULSE 76; RESP 16; TEMP 36.6; O2SAT 98
[2024-09-24] MEDS: Albuterol Sulfate (0.083%) 2.5 MG/3 ML VIAL.NEB 5 MG INHALE (00:55)
[2024-09-24 01:22] VITALS: BP 184/67; PULSE 84; RESP 20; O2SAT 96
[2024-09-24 01:23] VITALS: O2SAT 95
--- NOTE | 2024-09-24 02:04 | PC.NURSE ---
pt left unit on a w/c with her ,
== END 2024-09-24 02:05 | disposition home or self-care (01) ==
PROVIDERS: Emergency Provider Internal Medicine; PCP Family Medicine
DX: J44.1 Chronic obstructive pulmonary disease with (acute) exacerbation (principal); Z99.81 Dependence on supplemental oxygen; R06.02 Shortness of breath; Z79.899 Other long term (current) drug therapy; Z87.891 Personal history of nicotine dependence
CPT/HCPCS: 36415; 71045; 80048; 80076; 81003; 82803; 83605; 83690; 83735; 83880; 84484; 85025; 85610; 87040; 93005; 96374; 99284; J2919

== ENCOUNTER → 2024-09-23 20:06 | Outpatient (BNV) | payer BC, SELFPAY | PROVIDERS: Emergency Provider Internal Medicine; PCP Family Medicine; Visit Provider Internal Medicine Cardiovascular Disease | DX: R06.02 Shortness of breath (principal) | CPT/HCPCS: 93010 ==

== ENCOUNTER → 2024-09-23 21:20 | Outpatient (BNV) | payer BC, SELFPAY | PROVIDERS: Emergency Provider Internal Medicine; PCP Family Medicine; Visit Provider Radiology Diagnostic Radiology | DX: R06.00 Dyspnea, unspecified (principal) | CPT/HCPCS: 71045 ==

== ENCOUNTER 2024-10-06 09:24 | Outpatient (AMB) | payer BC, SELFPAY ==
[2024-10-06 09:26] VITALS: BP 150/64; O2SAT 94; BMI 39.8
--- NOTE | 2024-10-06 09:26 | A.OFFVIS_ITS ---
Vital Signs 10/06/24 09:26 Height 5 ft 1 in Weight 210 lb 8.663 oz BMI 39.8 BP 150/64 H Blood Pressure Location Lt brachial Position Sitting Pulse Oximetry (%) 94 Oxygen Delivery Method Nasal Cannula Oxygen Flow Rate 2 Intake Visit Reasons: COPD/Asthma Exhibit Carpenter Required: No Accompanied by: Self / Same As Patient Allergies Iodinated Contrast Media [IV CONTRAST] Allergy (Intermediate, Verified 10/06/24 09:30) HIVES latex [LATEX] Allergy (Unknown, Verified 10/06/24 09:30) RASH adhesive tape Allergy (Verified 10/06/24:30) Rash morphine [MORPHINE] Adverse Reaction (Unknown, Verified 10/06/24:30) VOMITING HPI Comments Details: The patient is a 59 year woman with a known history of tobacco dependency and COPD. Apparently back in February she developed worsening respiratory symptoms and was admitted to the hospital with COPD exacerbation. While she was there the patient did have a CT scan of the chest which was personally reviewed by me. It appears patient does have underlying pulmonary nodules subcentimeter in size, as well as, emphysema evidence of bronchitis. The patient does use oxygen activity. She also benefits from using oxygen while sleeping. The patient also needs to quit smoking. She understands the has is having oxygen and smoking. 07/19/2023 the patient is here for a pulmonary follow-up visit. Overall she is doing about the same. She has not using the oxygen regularly. She did have an overnight oximetry done several months ago on 2 L nasal cannula demonstrating that she actually does require the 2 L and actually would benefit from a little more oxygen. However, she has not using it at also I did advise her just to go back on using the oxygen. She has significant trigeminal neuralgia and neuropathy in general making it difficult for her to have anything over head and ear area. Therefore, she is going to have to figure out a way that would work for her. She does not tolerate a oxygen mask either because of the same problem. She is going to look to see if she can find a solution otherwise will can call [facility] to see if they can help her. The patient unfortunately she continues to smoke cigarettes. She does want to quit she wants to try the Nicotrol nasal spray. Will send to the pharmacy for her to try. The patient also did have pulmonary function studies that [facility] last year. She does have significant COPD. We do not have those PFTs available at this time but we will request them. She will be a great candidate for pulmonary rehabilitation at this time. The patient also had a CT scan of the chest back in February 2023 demonstrating multiple nodules largest 1 measuring 5 mm in size. She is high risk for malignancy due to her smoking history therefore she will have a repeat CT scan the fall 2023. 01/20/2024 the patient is here for a pulmonary follow-up visit. The patient has been hospitalized now about 3 times since we last spoke. I did evaluate her in the hospital as well. Has had significant wheezing. Has been requiring prednisone. Indeed she may have an allergic component to her bronchospasms. She does have significant eosinophilia. therefore, will go ahead and request additional testing including allergy testing so we can address her persistent bronchospasms. Currently she is on 40 mg of prednisone. She only taper. We did go over her inhalers. She needs to also continue to use her nebulizer therapy 2 to 4 times a day. Trelegy inhaler will be effective for her. She will go ahead and start that inhaler and we did instruct her how to use it. The patient is also using her oxygen. We did do a brief walking oximetry to make sure that she was getting adequate oxygenation. She need to continue using 2 L with activity. She does not using her nose because it does aggravate her nose so therefore she does only get some administration. The patient also has underlying daytime drowsiness. It was documented the patient is snoring. She also has headaches in the morning. The patient does have an elevated [place] score of 10/24. He is using oxygen with sleep. Will go ahead and request an in-lab sleep study at this time. 03/15/2024 the patient is here for a pulmonary follow-up visit. The patient is here for hospital follow-up visit. She has had multiple hospitalizations since the last visit. She has been having worsening respiratory symptoms. She is on currently on prednisone. She is tapering down. We did talk about her blood work demonstrating a low IgG level. I explained to her hypogammaglobulinemia can result in smoldering infections and could potentially worsen her respiratory issues and it could be driving her exacerbations. We talked about augmentation therapy. Will go ahead and repeat her levels once she is off the prednisone to see if she still low. If she is still low will talk about augmentation therapy further. In addition to that she did have a sleep study. It was an in-lab study. She did not have any evidence of sleep apnea. The patient actually just needs to be on oxygen. She can use 1 L at nighttime. We can always check an overnight oximetry on 1 L to make sure sufficient. In addition to that she is using the portable oxygen concentrator with did ask conserving device tank. The patient was walk today she needs 2 L pulse at rest and 3 L pulse with activity. When she is at home with the continue his oxygen she can stay on 2 liters/minute. Although when she is doing any kind strained his activity such as going up a flight of stairs or going showering she should be on 3 liters/minute. The patient feels comfortable with that. She continues use her respiratory therapy as prescribed. The patient did have a CT scan of the chest back in 03/03/2023 demonstrating multiple pulmonary nodules and chronic bronchitis. Largest nodule measuring 5 mm in size. She will need another CT scan now. The patient follow-up in 3-4 weeks and will review the CT scan at that time. 04/06/2024 the patient is here for a hospital follow-up visit. She was on hospital again. The patient required another course of steroids. She then subsequently to rehabilitation. She has been using her oxygen. We again reviewed her blood work demonstrating the significant immunodeficiency. Indeed her recurrent infections may be related to immunocompromised state in the treatment of augmentation therapy may be very reasonable for her to improve her quality of life decrease hospitalizations and improve her respiratory status. But for now she is on prednisone. Therefore will wait for to finish a prednisone recheck her levels to see if the levels continued to be low. If they are low then will go ahead and start her on IVIG therapy. If the levels are coming up then which is hold steady and see if they continue to rise when she is off the prednisone. She continues with respiratory therapy good effect. We did review her chest x-ray demonstrating no acute disease. We did review her allergy levels. There indeed elevated with an elevated IgE although her eosinophils are stable therefore not a candidate for Dupixent. However, will recheck her levels when she is off the prednisone to see if her eosinophils go about 300. 05/25/2024 the patient has a telehealth visit today. She was again in the hospital with nausea vomiting and she had dehydration. She is now better. She did require additional prednisone. Prior to the prednisone she did get the blood work demonstrating again on low IgG level. She is keeps getting admissions to the hospital because of bronchitis COPD exacerbations likely from ongoing infections. Therefore starting her on IVIG will be important. Her levels continue to be significantly low even off the prednisone. Her eosinophil levels are okay so therefore she is not a candidate for Dupixent. She continues use her oxygen good effect. She also continues with her respiratory therapy. 07/24/2024 the patient is here for a pulmonary follow-up visit. Overall the patient has been doing better. She was hospitalized briefly with another COPD exacerbation. Her chest x-ray was personally by me just demonstrating some evidence of bronchitis. No airspace disease noted. She was discharged and she has continued to use the oxygen. She is able to get a POC now and she is using at 2 L pulse. We did titrate her oxygen and she actually can just be on 2 L pulse with activity and if she is sitting down she can be on room air. Will go ahead request a repeat overnight oximetry on room air to see if she needs oxygen at nighttime. In the meantime she is going to continue with respiratory therapy. She also has been doing the IVIG which she will do every month. Does before the 4th dose she will get blood work done to check her IgG throw it make sure that her levels are reasonable. If not we can adjust them at that point. The patient also follow-up after that. We did talk about pulmonary rehabilitation. She had done it before. She will maybe benefit from it again specially as her respiratory condition seems to be getting better. She quit smoking back in April and this is a great accomplishment. I do believe that this will also help her recovery. 10/06/2024 the patient is here for a pulmonary follow-up visit. Overall she is doing okay. Beginning of the month she did have an exacerbation and went to the ER. She was given Solu-Medrol and sent home to use her noninvasive ventilator. Unfortunately she can not use a noninvasive ventilator regularly because she has trigeminal neuralgia and causes significant pain to wear the head gear. Therefore she is going to try some Lidoderm cream to the area. I do not want him to pre treat with lorazepam as she has in the past because is going to only suppress her respiratory drive. The patient has been using the oxygen with good effect. She has been having little bit more wheezy lately. I do believe that is likely to to allergies as her eosinophils are significantly elevated. Patient does have episodes of COPD with frequent exacerbations which will be a great candidate for Daliresp. Will go ahead and send Daliresp 500 mcg to the pharmacy. She is going to start taking slowly to both tolerance and then take it regularly. If she can not tolerate the Daliresp then she can always call and we can prescribe Ohtuvayre. She continues to get the IVIG every 4 weeks. We did check a trough recently and her IgG levels are better, but, she needs to continue with the every 4 week infusions since her trough is still low normal. She is wondering how long she is going to have to be on the IVIG therapy. I did tell her based on the fact that she her trough is still low she probably have to be on it for more than a year. Will reassess NSR levels continue to increase hopefully they do we can start extending it. [facility] [place] Medical History Panic disorder Hypertension Chronic hypercapnic respiratory failure Aortic stenosis Obesity (BMI 30-39.9) Asthma Acute exacerbation of chronic obstructive pulmonary disease Chronic lung disease Hypogammaglobulinemia Smoker JUANITO (obstructive sleep apnea) Allergies Elevated troponin COPD (chronic obstructive pulmonary disease) Trigeminal neuralgia Pulmonary nodules Mixed hyperlipidemia Peripheral neuropathy Tobacco use disorder Mood disorder Surgical History History of esophagogastroduodenoscopy (EGD) History of colonoscopy History of lumbar discectomy History of tubal ligation History of excision of mass History of shoulder surgery Social History Household Members: Spouse Housing: Condominium Do you presently have visiting nurse or other home services: No Alcohol intake: current Alcohol intake frequency: holidays/special occasions only Alcohol type: hard liquor Comment: patient declines bed alarm, ongoing, declines HFR protocol Patient Tobacco Use Status: Former Tobacco user Tobacco use type: Cigarette Cigarette Packs Per Day: 4 Cigarettes Per Day: 80.0 Years Smoked: 40 e-Cigarette/Vaping Use: Former Use Second Hand Smoke Exposure: No Substance Use Type: Marijuana Advance Directives Date on File: 03/09/23 service: No Review of Systems Const Denies chills, Denies fatigue, Denies fever(s), Denies weight gain and Denies weight loss Eyes Denies change in vision ENT Denies dizziness Card Denies chest pain, Denies leg edema, Denies lightheadedness, Denies palpitations, Reports dyspnea on exertion, Denies orthopnea and Denies other Resp Reports cough, Reports dyspnea on exertion and Reports wheezing GI Denies hematochezia and Denies change in stool character Musc Denies abnormal gait, Denies muscle weakness, Denies numbness, Denies radiating pain into limb and Denies tingling Skin/Breast Denies rash Neuro Denies abnormal gait, Denies dizziness, Denies numbness and Denies tingling Endo Denies fatigue and Denies palpitations Luis/Lymph Denies lymphadenopathy Aller/Immun Reports no additional complaints and Reports wheezing Physical Exam Vital Signs: Last Vital Signs BP 150/64 H 10/06/24 09:26 Pulse Ox 94 10/06/24 09:26 Oxygen Delivery Method Nasal Cannula 10/06/24 09:26 Oxygen Flow Rate 2 10/06/24 09:26 BMI result Body Mass Index 39.8 Last Vital Signs Temp 97.6 F 12/12/23 08:00 Pulse 110 H 12/12/23 09:52 Resp 22 H 12/12/23 09:52 BP 170/89 H 12/12/23 08:00 Pulse Ox 92 12/12/23 08:00 O2 Del Method Nasal Cannula 12/12/23 08:00 O2 Flow Rate 2 12/12/23 08:00 FiO2 28 12/11/23 04:00 BMI result Body Mass Index 30.6 Const General: cooperative and alert Orientation/consciousness: patient oriented x3 HEENT Head: Yes normocephalic Chest Chest palpation & inspection: normal inspection of the chest Resp Effort & Inspection: normal respiratory effort and able to speak in complete sentences Auscultation: no wheezes and diminished lung sounds Neuro General: patient oriented x3 Assessment & Plan Assessment & Plan (1) JUANITO (obstructive sleep apnea): Code(s): G47.33 - Obstructive sleep apnea (adult) (pediatric) Category: Medical (2) COPD (chronic obstructive pulmonary disease): Code(s): J44.9 - Chronic obstructive pulmonary disease, unspecified Category: Medical Qualifiers: COPD type: chronic bronchitis Chronic bronchitis type: simple Qualified Code(s): J41.0 - Simple chronic bronchitis (3) Pulmonary nodules: Code(s): R91.8 - Other nonspecific abnormal finding of lung field Category: Medical (4) Allergies: Code(s): T78.40XA - Allergy, unspecified, initial encounter Category: Medical Qualifiers: Encounter type: initial encounter Qualified Code(s): T78.40XA - Allergy, unspecified, initial encounter (5) Hypogammaglobulinemia: Code(s): D80.1 - Nonfamilial hypogammaglobulinemia Category: Medical (6) Chronic lung disease: Code(s): J98.4 - Other disorders of lung Category: Medical Plan Trelegy continue IVIG augmentation therapy continue oxygen supplementation with activity start Daliresp LDCT program continue oxygen 1L/min while sleeping, 2l/pulse with activity (Has POC) F/U 2-3 months Medications: New roflumilast (Daliresp) 500 mcg PO DAILY 30 tabs 11RF 30 days prednisone PO daily; Take 6 tabs daily x 3 days, then 5 tabs x 3 days, then 4 tabs x 3 days, then 3 tabs x 3 days, then 2 tabs daily x 3 days, then 1 tab x 3 days to complete. 63 tabs 0RF 18 days Coding Level of Care Code Est Pt Level 4 (55618) Complex EM visit Add On G2211 Diagnoses JUANITO (obstructive sleep apnea) G47.33 Simple chronic bronchitis J41.0 COPD type: chronic bronchitis Chronic bronchitis type: simple Pulmonary nodules R91.8 Allergy, initial encounter T78.40XA Encounter type: initial encounter Hypogammaglobulinemia D80.1 Chronic lung disease J98.4 Time Spent (min) 18
== END 2024-10-06 09:55 | disposition home or self-care (01) ==
LOC: HO.HPS 09:25
PROVIDERS: PCP Registered Nurse; Visit Provider Hospitalist
DX: G47.33 Obstructive sleep apnea (adult) (pediatric) (principal); J41.0 Simple chronic bronchitis; R91.8 Other nonspecific abnormal finding of lung field; T78.40XA Allergy, unspecified, initial encounter; D80.1 Nonfamilial hypogammaglobulinemia; J98.4 Other disorders of lung
CPT/HCPCS: 99214

== ENCOUNTER → 2024-10-06 09:24 | Outpatient (BNVA) | payer BC, SELFPAY | PROVIDERS: PCP Registered Nurse; Visit Provider Hospitalist | DX: J98.4 Other disorders of lung (principal); D80.1 Nonfamilial hypogammaglobulinemia ==

== ENCOUNTER 2024-10-28 02:21 | Emergency (ER) | payer BC, SELFPAY ==
[2024-10-28] VITALS (8 sets, daily range): BP systolic 142–192; BP diastolic 53–87; PULSE 87–96; RESP 20–24; TEMP 36.6–36.8; O2SAT 82–98; BMI 38.2
--- NOTE | ~2024-10-28 | XR_ITS ---
CLINICAL HISTORY: dypsnea 1 view chest x-ray Comparison: CR - XR CHEST 1V - 09/23/24 21:21 EDT Findings: No consolidation or effusion. Normal size heart. No acute fracture. IMPRESSION: 1. No acute findings. This document has been electronically signed by: Dami Martinez MD, PHD on 10/28/2024 04:22:09
--- NOTE | 2024-10-28 02:37 | ECG_ITS ---
Test Reason : SOB Blood Pressure : */* mmHG Vent. Rate : 93 BPM Atrial Rate : 93 BPM P-R Int : 144 ms QRS Dur : 88 ms QT Int : 360 ms P-R-T Axes : 60 60 16 degrees QTcB Int : 447 ms Normal sinus rhythm Nonspecific ST abnormality Abnormal ECG When compared with ECG of 23-Sep-2024 20:14, No significant change was found Referred By: Musa Pichardo Electronically Signed By: HARRIET ANDRES MD
[2024-10-28] MEDS: Albuterol Sulfate 7.5 MG, Albuterol/Iprat 2.5/0.5MG 3 ML 3 ML INHALE (02:51)
--- NOTE | 2024-10-28 03:10 | ED_ITS ---
HPI - SOB/Dyspnea General Chief Complaint: Dyspnea Stated Complaint: COPD exacerbation Med con Time Seen by Provider: 10/28/24 02:28 Source: patient and EMS Mode of arrival: EMS Limitations: no limitations History of Present Illness ED Provider: HPI Narrative: 59-year-old female with a past medical history HTN, COPD, chronic respiratory failure on home oxygen, aortic stenosis, trigeminal neuralgia, neuropathy, HX CVA, mood disorder on home oxygen and CPAP as needed quit smoking in 05/07 been having increasing cough mostly dry and wheezing for last 1 week time to use the nebulizer without much response today just prior to arrival patient was not able to speak given when EMS reached patient is saturating in 90s on CPAP was given Solu-Medrol, magnesium and DuoNeb treatment by the EMS Related Data Home Medications ?Medication ?Instructions ?Recorded ?Confirmed atorvastatin 80 mg tablet 80 mg PO DAILY@199903/04/23 08/22/24 ycganxoart-fvsjjkdfuakmd-kldizhdx 1 tab PO DAILY MRX1 PRN Headache 03/04/23 08/22/24 50 mg-325 mg-40 mg tablet duloxetine 60 mg capsule,delayed 60 mg PO BID@0500,199903/04/23 08/22/24 release gabapentin 300 mg capsule 1,200 mg PO TID@0500,1200,199903/04/23 08/22/24 hyoscyamine sulfate 0.125 mg tablet 0.25 mg PO Q6H PRN Abdominal 03/04/23 08/22/24 Discomfort Oxygen Home Use 04/16/23 03/10/24 prazosin 2 mg capsule 2 mg PO DAILY@199904/16/23 08/22/24 albuterol sulfate 90 mcg/actuation 2 puff inhalation Q4H PRN 01/31/24 08/22/24 aerosol inhaler Shortness Of Breath Or Wheezing aspirin 81 mg tablet,delayed 81 mg PO DAILY@199905/22/24 08/22/24 release calcium 600 mg (as 1 tab PO DAILY@199906/20/24 08/22/24 carbonate)-vitamin D3 5 mcg (200 unit) tablet verapamil 120 mg tablet 120 mg PO BID@0500,199907/02/24 08/22/24 lorazepam 0.5 mg tablet 0.5 mg PO DAILY PRN MODERATE 08/03/24 08/22/24 Anxiety fluticasone fur. 200 mcg-umeclid 1 ea inhalation DAILY 08/22/24 08/22/24 62.5 mcg-vilant 25 mcg inhalat.powder (Trelegy Ellipta) hydrocodone 5 mg-acetaminophen 325 1 tab PO DAILY 08/22/24 08/22/24 mg tablet baclofen 10 mg tablet 10 mg PO TID@0500,1199,199910/06/24 clonidine HCl 0.1 mg tablet 0.1 mg PO TID 10/06/24 oxcarbazepine 600 mg tablet 450 mg PO BID@0500,199910/06/24 Previous Rx's ?Medication ?Instructions ?Recorded nebulizer and compressor #1 ea 12/16/23 ipratropium 0.5 mg-albuterol 3 mg 3 ml inhalation Q4H PRN for 03/02/24 (2.5 mg base)/3 mL nebulization dyspnea #180 mL soln valsartan 80 mg tablet 80 mg PO DAILY #30 tabs 10/04/24 prednisone 10 mg tablet See Rx Instructions PO DAILY 18 10/06/24 days #63 tabs roflumilast 500 mcg tablet 500 mcg PO DAILY 30 days #30 tabs 10/06/24 (Daliresp) Allergies Allergy/AdvReac Type Severity Reaction Status Date / Time Iodinated Contrast Media Allergy Intermediate HIVES Verified 10/28/24 02:40 [IV CONTRAST] latex [LATEX] Allergy Unknown RASH Verified 10/28/24 02:40 adhesive tape Allergy Rash Verified 10/28/24 02:40 morphine [MORPHINE] AdvReac Unknown VOMITING Verified 10/28/24 02:40 Review of Systems 2 Review of Systems: Yes all other systems are reviewed and are negative PMF Past Medical History Medical History Panic disorder Hypertension Chronic hypercapnic respiratory failure Aortic stenosis Obesity (BMI 30-39.9) Asthma Acute exacerbation of chronic obstructive pulmonary disease Chronic lung disease Hypogammaglobulinemia Smoker JUANITO (obstructive sleep apnea) Allergies Elevated troponin COPD (chronic obstructive pulmonary disease) Trigeminal neuralgia Pulmonary nodules Mixed hyperlipidemia Peripheral neuropathy Tobacco use disorder Mood disorder Surgical History History of esophagogastroduodenoscopy (EGD) History of colonoscopy History of lumbar discectomy History of tubal ligation History of excision of mass History of shoulder surgery Social History Social History Household Members: Spouse Housing: Condominium Do you presently have visiting nurse or other home services: No Alcohol intake: current Alcohol intake frequency: holidays/special occasions only Alcohol type: hard liquor Comment: patient declines bed alarm, ongoing, declines HFR protocol Patient Tobacco Use Status: Former Tobacco user Tobacco use type: Cigarette Cigarette Packs Per Day: 4 Cigarettes Per Day: 80.0 Years Smoked: 40 Smoked in Last 30 Days: No e-Cigarette/Vaping Use: Former Use Second Hand Smoke Exposure: No Use of substances other than those prescribed or required for medical reasons: No Substance Use Type: Marijuana Advance Directives: Yes Advance Directives on File: Yes Advance Directives Date on File: 03/09/23 Do you have a plan to hurt others: No Plan Patient : No service: No Physical Exam 2 Vital Signs: Vital Signs: Last Vital Signs Temp 98.2 F 10/28/24 06:18 Pulse 87 10/28/24 06:18 Resp 20 10/28/24 06:18 BP 142/66 H 10/28/24 06:18 Pulse Ox 96 10/28/24 06:18 O2 Del Method Nasal Cannula 10/28/24 06:18 O2 Flow Rate 3 10/28/24 06:18 Oxygen Flow Rate 2 10/28/24 02:37 BMI result Body Mass Index 38.2 Appearance: Alert. Oriented X3. No acute distress. Eyes: PERRLA, No Nystagmus ENT: Pharynx normal. Oral Mucosa moist Neck: Normal inspection. Neck supple. CVS: Normal heart rate and rhythm. Pulses normal. Respiratory: No respiratory distress. Equal air entry bilateral, bilateral wheezing no crackles Abdomen: Soft and nontender. Bowel sounds are present, no mass palpable, no CVA tenderness Skin: Skin warm and dry. Normal skin color. Normal skin turgor. Extremities: No lower extremity edema. No calf tenderness Neuro: Oriented X 3. No motor deficit. Medications Administered Discontinued Medications Generic Name Dose Route Start Last Admin Trade Name Freq PRN Reason Stop Dose Admin Albuterol Sulfate 7.5 mg/ 0 mg 10/28/24 02:34 10/28/24 02:51 Albuterol/Ipratropium 3 ml INHALE 10/28/24 02:35 3 each ONCE ONE Administration Acetaminophen 1,000 mg in 100 mls @ 400 mls/hr 10/28/24 03:07 10/28/24 03:40 Ofirmev IV 10/28/24 03:21 Infused ONCE ONE Infusion Medical Decision Making Medical Decision Making [facility] Narrative: Patient is feeling much better after nebulizing treatment received steroids and magnesium by the EMS saturating 95% on ambulation does have oxygen at home will discharge patient home Differential Diagnosis Differential Diagnoses: The differential diagnosis associated with the presentation includes Lab Data [facility] Lab Attestation statement: I reviewed the patient's lab results. 10/28/24 03:05 10/28/24 03:05 Labs: Lab Results 10/28/24 10/28/24 Range/Units 03:05 03:14 WBC 8.3 (4.8-10.8) X10*3/uL RBC 4.03 L (4.20-5.50) X10*6/uL Hgb 12.7 (12.0-16.0) g/dl Hct 38.8 (37.0-47.0) % MCV 96.3 (80.0-98.0) fL MCH 31.5 (27.0-33.0) pg MCHC 32.7 (31.0-35.0) g/dl RDW 13.7 (11.0-16.0) % Plt Count 353 (160-400) X10*3/uL MPV 9.5 (9.4-12.3) fL Immature Gran % (Auto) 0.4 (0.0-0.4) % Neut % (Auto) 68.5 (45-73) % Lymph % (Auto) 22.0 (20-40) % Island % (Auto) 6.0 (2-11) % Eos % (Auto) 2.5 (0-4) % Baso % (Auto) 0.6 (0-2) % Lymph # (Auto) 1.8 (1.2-4.9) X10*3/uL Island # (Auto) 0.5 (0.1-1.2) X10*3/uL Eos # (Auto) 0.2 (0.0-0.4) X10*3/uL Baso # (Auto) 0.1 (0.0-0.2) X10*3/uL Abs Immat Gran (auto) 0.03 (0.00-0.03) X10*3/uL Absolute Neuts (auto) 5.7 (2.0-8.3) x10*3/uL Absolute Nucleated RBC 0.000 (0.0-0.012) X10*3/uL Nucleated RBC % (auto) 0.0 (0.0-0.2) /100WBC VBG pH 7.44 H (7.32-7.43) VBG pCO2 39 mmHg VBG pO2 96 mmHg VBG HCO3 27 H (22-26) mmol/L VBG O2 Saturation 99.0 % VBG Base Excess 3.4 mmol/L Sodium 146 H (135-145) mmol/L Potassium 3.8 (3.3-5.1) mmol/L Chloride 110 H (96-108) mmol/L Carbon Dioxide 25 (22-29) mmol/L Anion Gap 15 (12-20) BUN 14 (9-16) mg/dL Creatinine 0.73 (0.5-1.4) mg/dL Estim Creat Clear Calc 83.4 Estimated GFR > 60 Random Glucose 171 H (60-115) mg/dL Calcium 9.6 (8.4-10.2) mg/dL Total Bilirubin 0.2 (0.0-1.0) mg/dL AST 36 H (5-31) U/L ALT 32 H (0-31) U/L Alkaline Phosphatase 70 (39-117) U/L Troponin I High Sens 11.3 (<3.5-17.0) ng/L Total Protein 7.2 (6.5-8.0) g/dL Albumin 4.1 (3.5-5.0) g/dL Discharge Plan Discharge Clinical Impression: Acute exacerbation of chronic obstructive pulmonary disease Patient Disposition: Home, Self-Care Instructions: COPD (Chronic Obstructive Pulmonary Disease) (ED) Additional Instructions: Continue nebulizer treatment every 4-6 hours and continue your tapering dose of the prednisone as given to you by your park interpreter Report to the ER if worsening of the shortness a breath Prescriptions: No Action ipratropium-albuterol 0.5 mg-3 mg(2.5 mg base)/3 mL solution for nebulization 3 ml inhalation Q4H PRN (Reason: for dyspnea) Qty: 180 11RF valsartan 80 mg tablet 80 mg PO DAILY Qty: 30 2RF verapamil 120 mg tablet 120 mg PO BID@0500,1999 baclofen 10 mg tablet 10 mg PO TID@0500,1200,1999 lorazepam 0.5 mg tablet 0.5 mg PO DAILY PRN (Reason: MODERATE Anxiety) Trelegy Ellipta 200-62.5-25 mcg blister with device 1 ea INHALATION DAILY hydrocodone-acetaminophen 5-325 mg tablet 1 tab PO DAILY Rx Instructions: Partial Fill upon patient request. atorvastatin 80 mg tablet 80 mg PO DAILY@1999 rgvilpfzmq-ycxhspeymjdjx-yuim 50-325-40 mg tablet 1 tab PO DAILY MRX1 PRN (Reason: Headache) hyoscyamine sulfate 0.125 mg tablet 0.25 mg PO Q6H PRN (Reason: Abdominal Discomfort) gabapentin 300 mg capsule 1,200 mg PO TID@0500,1199,1999 duloxetine 60 mg capsule,delayed release(DR/EC) 60 mg PO BID@050,1999 oxcarbazepine 600 mg tablet 450 mg PO BID@0500,1999 (DME) nebulizer and compressor Device See Rx Instructions .Route Qty: 1 0RF Rx Instructions: As directed albuterol sulfate 90 mcg/actuation HFA aerosol inhaler 2 puff inhalation Q4H PRN (Reason: Shortness Of Breath Or Wheezing) aspirin 81 mg tablet,delayed release (DR/EC) 81 mg PO DAILY@1999 calcium carbonate-vitamin D3 600 mg-5 mcg (200 unit) tablet 1 tab PO DAILY@1999 clonidine HCl 0.1 mg tablet 0.1 mg PO TID Protocol: Hold for SBP< HOLD for SBP < : 90 roflumilast [Daliresp] 500 mcg tablet 500 mcg PO DAILY 30 Days Qty: 30 11RF prednisone 10 mg tablet See Rx Instructions PO DAILY 18 Days Qty: 63 0RF Rx Instructions: PO daily; Take 6 tabs daily x 3 days, then 5 tabs x 3 days, then 4 tabs x 3 days, then 3 tabs x 3 days, then 2 tabs daily x 3 days, then 1 tab x 3 days to complete. prazosin 2 mg capsule 2 mg PO DAILY@1999 (DME) Oxygen Home Use Kit See Rx Instructions .Route Rx Instructions: As directed Interventions: ED Discharge Assessment Last Done: 10/28/24 06:18 Discharge Date/Time: 10/28/24 06:19 Print Language: Persian
[2024-10-28 03:14] LABS: MANUAL DIFF FLAG NO
[2024-10-28 03:15] LABS: Basophils Absolute Auto 0.1 X10*3/uL (0.0-0.2); Basophils Percent Auto 0.6 % (0-2); Eosinophils Absolute Auto 0.2 X10*3/uL (0.0-0.4); Eosinophils Percent Auto 2.5 % (0-4); Hematocrit 38.8 % (37.0-47.0); Hemoglobin 12.7 g/dl (12.0-16.0); Imm Gran Abs Auto 0.03 X10*3/uL (0.00-0.03); Imm Gran Pct Auto 0.4 % (0.0-0.4); Lymphocytes Absolute Auto 1.8 X10*3/uL (1.2-4.9); Mean Corpuscular HGB Conc 32.7 g/dl (31.0-35.0); Mean Corpuscular Hemoglobin 31.5 pg (27.0-33.0); Mean Corpuscular Volume 96.3 fL (80.0-98.0); Mean Platelet Volume 9.5 fL (9.4-12.3); Monocytes Absolute Auto 0.5 X10*3/uL (0.1-1.2); Neutrophils Absolute Auto 5.7 x10*3/uL (2.0-8.3); Neutrophils Percent Auto 68.5 % (45-73); Platelet Count 353 X10*3/uL (160-400); Red Blood Count 4.03 X10*6/uL (4.20-5.50); Red Cell Distribution Width 13.7 % (11.0-16.0); White Blood Count 8.3 X10*3/uL (4.8-10.8)
[2024-10-28 03:17] LABS: Venous Blood Gas Refer to POC result
[2024-10-28] MEDS: Acetaminophen 1,000 MG/100 ML PIGGYBACK 400 MG IV (03:17)
[2024-10-28 03:18] LABS: VBG Base Excess 3.4 mmol/L; VBG HCO3 27 mmol/L (22-26); VBG pCO2 39 mmHg; VBG pH 7.44 (7.32-7.43); VBG pO2 96 mmHg
[2024-10-28 03:36] LABS: Troponin-I High Sensitivity 11.3 ng/L (<3.5-17.0)
[2024-10-28 03:45] LABS: Alanine Aminotransferase 32 U/L (0-31); Albumin Level 4.1 g/dL (3.5-5.0); Alkaline Phosphatase 70 U/L (39-117); Anion Gap 15 (12-20); Aspartate Amino Transferase 36 U/L (5-31); Bilirubin Total 0.2 mg/dL (0.0-1.0); Blood Urea Nitrogen 14 mg/dL (9-16); Calcium 9.6 mg/dL (8.4-10.2); Carbon Dioxide 25 mmol/L (22-29); Chloride 110 mmol/L (96-108); Creatinine Clr Calc Pharmacy 83.4; Estimated Glomerular Filt Rate > 60; Glucose Random 171 mg/dL (60-115); Potassium 3.8 mmol/L (3.3-5.1); Sodium 146 mmol/L (135-145); Total Protein 7.2 g/dL (6.5-8.0)
--- NOTE | 2024-10-28 05:05 | PC.NURSE ---
Addendum entered by Ross Aguilar RN 10/28/24 05:08: wheezing resolved. pt states she feels back to baseline Original Note: pt states she feels better and would like to be discharged
--- NOTE | 2024-10-28 06:19 | PC.NURSE ---
pt ambulated out of room and into wheelchair maintaining 94% SpO2 and stating her respiratory effort is at baseline
== END 2024-10-28 06:19 | disposition home or self-care (01) ==
PROVIDERS: Emergency Provider Internal Medicine; PCP Physician Assistant Surgical
DX: J44.1 Chronic obstructive pulmonary disease with (acute) exacerbation (principal); R06.02 Shortness of breath; I10 Essential (primary) hypertension; I35.0 Nonrheumatic aortic (valve) stenosis; Z79.899 Other long term (current) drug therapy
CPT/HCPCS: 36415; 71045; 80053; 82803; 84484; 85025; 93005; 94640; 96365; 96374; 99284; 99285; J0131

== ENCOUNTER → 2024-10-28 02:37 | Outpatient (BNV) | payer BC, SELFPAY | PROVIDERS: Emergency Provider Internal Medicine; PCP Physician Assistant Surgical; Visit Provider Internal Medicine Cardiovascular Disease | DX: R94.31 Abnormal electrocardiogram [ECG] [EKG] (principal); R06.02 Shortness of breath | CPT/HCPCS: 93010 ==

== ENCOUNTER → 2024-10-28 02:51 | Outpatient (BNV) | payer BC, SELFPAY | PROVIDERS: Emergency Provider Internal Medicine; Visit Provider General Practice | DX: R06.00 Dyspnea, unspecified (principal) | CPT/HCPCS: 71045 ==

== ENCOUNTER 2024-10-29 02:50 | Observation (INO) | payer BC, SELFPAY ==
[2024-10-29] VITALS (12 sets, daily range): BP systolic 103–169; BP diastolic 47–76; PULSE 80–121; RESP 17–28; TEMP 36–36.8; O2SAT 92–97; BMI 39.6
--- NOTE | ~2024-10-29 | CT_ITS ---
CLINICAL HISTORY: dyspnea CT chest without contrast Comparison: CT/SR - CT CHEST WO IV CON - 05/01/24 05:17 EST Findings: The thyroid gland appears normal. There is no mediastinal, hilar, or axillary lymphadenopathy. The heart is normal in size. There is no pericardial effusion. Nonspecific 3 mm subpleural right upper lobe nodule (axial image 20 of series 3) is unchanged. Mild centrilobular emphysema is present. Linear scarring is seen in the lingula. Limited examination of the upper abdomen demonstrates no significant abnormality. 7 mm focal sclerosis is seen at T5, unchanged and likely representing a bone island. Mild degenerative changes are seen in the spine. No acute osseous abnormality is identified. No aggressive lytic or blastic lesion is seen. IMPRESSION: 1. Mild pulmonary emphysema. No evidence of pneumonia. This document has been electronically signed by: Chrissy Boo on 10/29/2024 06:22:34
--- NOTE | 2024-10-29 03:07 | ECG_ITS ---
Test Reason : SHORTNESS OF BREATH Blood Pressure : */* mmHG Vent. Rate : 123 BPM Atrial Rate : 123 BPM P-R Int : 134 ms QRS Dur : 84 ms QT Int : 300 ms P-R-T Axes : 68 64 -77 degrees QTcB Int : 429 ms Sinus tachycardia T wave abnormality, consider inferior ischemia Abnormal ECG When compared with ECG of 28-Oct-2024 02:37, T wave inversion now evident in Inferior leads Nonspecific T wave abnormality now evident in Lateral leads Referred By: Christopher Ramirez Electronically Signed By: HARRIET ANDRES MD
--- NOTE | 2024-10-29 03:22 | ED_ITS ---
HPI - General Adult General Chief complaint: Dyspnea Stated complaint: COPD exacerbation Time Seen by Provider: 10/29/24 02:57 Source: patient, RN notes reviewed and old records reviewed Mode of arrival: EMS Limitations: no limitations History of Present Illness ED Provider: James LOWE narrative: 59-year-old female with past medical history significant for COPD on 1-3 L of oxygen via nasal cannula, hypertension, mixed hyperlipidemia, history of CVA with left-sided trigeminal neuralgia, mood disorder who presents for evaluation of shortness of breath. Patient was seen here about 24 hours ago for the same complaint. She was treated with racemic epinephrine, magnesium, Solu-Medrol, high-dose albuterol she reports that she is on a prednisone taper that was prescribed to her by her fire ranger, Dr. Henriquez. She does use CPAP at night but she is noncompliant due to her trigeminal neuralgia in the discomfort that it causes. She denies any fevers or chills. She does report increased dry cough Related Data Home Medications ?Medication ?Instructions ?Recorded ?Confirmed atorvastatin 80 mg tablet 80 mg PO DAILY@199903/04/23 08/22/24 piwjsbgqxz-dkqlojrzeadtx-wjjzvyng 1 tab PO DAILY MRX1 PRN Headache 03/04/23 08/22/24 50 mg-325 mg-40 mg tablet duloxetine 60 mg capsule,delayed 60 mg PO BID@050,199903/04/23 08/22/24 release gabapentin 300 mg capsule 1,200 mg PO TID@0500,1200,199903/04/23 08/22/24 hyoscyamine sulfate 0.125 mg tablet 0.25 mg PO Q6H PRN Abdominal 03/04/23 08/22/24 Discomfort Oxygen Home Use 04/16/23 03/10/24 prazosin 2 mg capsule 2 mg PO DAILY@199904/16/23 08/22/24 albuterol sulfate 90 mcg/actuation 2 puff inhalation Q4H PRN 01/31/24 08/22/24 aerosol inhaler Shortness Of Breath Or Wheezing aspirin 81 mg tablet,delayed 81 mg PO DAILY@199905/22/24 08/22/24 release calcium 600 mg (as 1 tab PO DAILY@199906/20/24 08/22/24 carbonate)-vitamin D3 5 mcg (200 unit) tablet verapamil 120 mg tablet 120 mg PO BID@0500,199907/02/24 08/22/24 lorazepam 0.5 mg tablet 0.5 mg PO DAILY PRN MODERATE 08/03/24 08/22/24 Anxiety fluticasone fur. 200 mcg-umeclid 1 ea inhalation DAILY 08/22/24 08/22/24 62.5 mcg-vilant 25 mcg inhalat.powder (Trelegy Ellipta) hydrocodone 5 mg-acetaminophen 325 1 tab PO DAILY 08/22/24 08/22/24 mg tablet baclofen 10 mg tablet 10 mg PO TID@0500,1199,199910/06/24 clonidine HCl 0.1 mg tablet 0.1 mg PO TID 10/06/24 oxcarbazepine 600 mg tablet 450 mg PO BID@0500,199910/06/24 Previous Rx's ?Medication ?Instructions ?Recorded nebulizer and compressor #1 ea 12/16/23 ipratropium 0.5 mg-albuterol 3 mg 3 ml inhalation Q4H PRN for 03/02/24 (2.5 mg base)/3 mL nebulization dyspnea #180 mL soln valsartan 80 mg tablet 80 mg PO DAILY #30 tabs 10/04/24 prednisone 10 mg tablet See Rx Instructions PO DAILY 18 10/06/24 days #63 tabs roflumilast 500 mcg tablet 500 mcg PO DAILY 30 days #30 tabs 10/06/24 (Daliresp) Allergies Allergy/AdvReac Type Severity Reaction Status Date / Time Iodinated Contrast Media Allergy Intermediate HIVES Verified 10/29/24 02:59 [IV CONTRAST] latex [LATEX] Allergy Unknown RASH Verified 10/29/24 02:59 adhesive tape Allergy Rash Verified 10/29/24 02:59 morphine [MORPHINE] AdvReac Unknown VOMITING Verified 10/29/24 02:59 Review of Systems 2 Constitutional: Constitutional: Denies body ache(s), Denies chills and Denies fever(s) Eyes: Eyes: Denies blurry vision ENT: Denies vertigo and Denies dizziness Cardiovascular: Cardiovascular: Denies chest pain, Denies chest pain at rest and Reports dyspnea Respiratory: Respiratory: Reports cough, Reports dyspnea and Reports wheezing Gastrointestinal: Gastrointestinal: Denies abdominal pain, Denies nausea and Denies vomiting Musculoskeletal: Musculoskeletal: Denies back pain Integumentary/Breasts: Skin/Breast: Denies rash Neurologic: Denies vertigo and Denies dizziness Psychiatric: Psychiatric: Reports anxiety Allergic/Immunologic: Allergic/Immunologic: Reports wheezing PMFSH Past Medical History Medical History Panic disorder Hypertension Chronic hypercapnic respiratory failure Aortic stenosis Obesity (BMI 30-39.9) Asthma Acute exacerbation of chronic obstructive pulmonary disease Chronic lung disease Hypogammaglobulinemia Smoker JUANITO (obstructive sleep apnea) Allergies Elevated troponin COPD (chronic obstructive pulmonary disease) Trigeminal neuralgia Pulmonary nodules Mixed hyperlipidemia Peripheral neuropathy Tobacco use disorder Mood disorder Surgical History History of esophagogastroduodenoscopy (EGD) History of colonoscopy History of lumbar discectomy History of tubal ligation History of excision of mass History of shoulder surgery Social History Social History Household Members: [facility] Do you presently have visiting nurse or other home services: No Alcohol intake: current Alcohol intake frequency: holidays/special occasions only Alcohol type: hard liquor Comment: patient declines bed alarm, ongoing, declines HFR protocol Patient Tobacco Use Status: Former Tobacco user Tobacco use type: Cigarette Cigarette Packs Per Day: 4 Cigarettes Per Day: 80.0 Years Smoked: 40 Smoked in Last 30 Days: No e-Cigarette/Vaping Use: Former Use Second Hand Smoke Exposure: No Use of substances other than those prescribed or required for medical reasons: Yes Substance Use Type: Marijuana Advance Directives: Yes Advance Directives on File: Yes Advance Directives Date on File: 03/09/23 service: No Physical Exam ED Vital Signs: Vital Signs - 24 hr 10/29/24 02:57 10/29/24 03:01 10/29/24 04:04 Temperature 97.9 F 97.9 F Pulse Rate 121 H 121 H 110 H Respiratory Rate 24 H 24 H 23 H Blood Pressure 109/56 L 109/56 L 107/47 L Pulse Oximetry 97 97 92 Oxygen Delivery Method Room Air Room Air Oxymask Oxygen Flow Rate 2 BMI result Body Mass Index 39.6 Const General: healthy appearing, comfortable, no acute distress, alert and awake Nutritional Appearance: well nourished Orientation/consciousness: patient oriented x3 HENMT Head: Yes normocephalic and Yes atraumatic Eyes Eyelids: Yes eyelids normal Conjunctivae: conjunctivae normal Sclerae: sclerae normal Corneas: corneas normal Pupils: Equal, round and reactive pupils present EOM: EOMs intact bilaterally Neck Neck: Yes full ROM Resp Effort & Inspection: audible wheezes, Actively coughing, labored, tachypneic and uses accessory muscles Auscultation: wheezes Cardio Rhythm: regular rhythm GI Inspection: No distended Palpation (GI): Soft to palpation, not firm, nontender, no guarding and not rigid Skin General skin exam: elasticity normal Neuro General: patient oriented x3 Cranial nerves: Yes Equal, round and reactive pupils present and Yes Bilaterally intact EOM present Cognition (Neuro): normal cognition Extrem Other: Moving all extremities well without any obvious deformities Course Reevaluation(s) Reevaluation #1: Sinus tachycardia is favored to be related to the patient has significant amount of albuterol today Time: 03:34 Reevaluation #2: patient was given azithromycin to change in mucus production with change in color. There was no evidence of sepsis. Time: 04:06 Medications Administered Discontinued Medications Generic Name Dose Route Start Last Admin Trade Name Freq PRN Reason Stop Dose Admin Magnesium Sulfate 2 gm in 50 mls @ 150 mls/hr 10/29/24 03:06 10/29/24 04:03 Magnesium Sulfate/H2o IV 10/29/24 03:25 Infused ONCE ONE Infusion Medical Decision Making Medical Decision Making [facility] Narrative: 59-year-old female with past medical history as above presents for evaluation of shortness of breath. Patient reports that her oxygen saturation at home was 85%, EMS found her on 90% on her baseline 3 L. she has some wheezing on exam, she already received Solu-Medrol and 2 DuoNebs from EMS. I ordered magnesium in addition to the current treatment plan. Plan for basic labs, BNP, viral swabs, EKG. I do not see any indication to repeat chest x-ray as 1 was done 24 hours ago that looked unremarkable. The patient is already feeling better. She was tachypneic in the mid 30s on arrival to the ED. after the 2nd DuoNeb treatment her respiratory rate improved to about 26. Her oxygen saturation is 92-93% on her baseline oxygen. given that the patient appears to be failing outpatient therapy for her treatment of acute on chronic respiratory failure anticipate admission Differential Diagnosis Differential Diagnoses: The differential diagnosis associated with the presentation includes acute on chronic respiratory failure Bronchitis Influenza COVID-19 CHF Admission/Observation Consideration of admission/observation: Escalation of care including admission/observation considered Lab Data MDM Lab Attestation statement: I reviewed the patient's lab results. no leukocytosis. There is a mild normocytic anemia of unclear etiology, no active bleeding. Normal platelet count. No significant electrolyte abnormalities. BUN is elevated to 17 with a normal creatinine 0.86. Glucose is elevated to 149 10/29/24 03:33 10/29/24 03:33 Labs: Lab Results 10/29/24 10/29/24 Range/Units 03:33 03:38 WBC 9.6 (4.8-10.8) X10*3/uL RBC 3.70 L (4.20-5.50) X10*6/uL Hgb 11.8 L (12.0-16.0) g/dl Hct 35.7 L (37.0-47.0) % MCV 96.5 (80.0-98.0) fL MCH 31.9 (27.0-33.0) pg MCHC 33.1 (31.0-35.0) g/dl RDW 14.1 (11.0-16.0) % Plt Count 349 (160-400) X10*3/uL MPV 9.4 (9.4-12.3) fL Immature Gran % (Auto) 0.2 (0.0-0.4) % Neut % (Auto) 62.2 (45-73) % Lymph % (Auto) 22.8 (20-40) % [place] % (Auto) 11.8 H (2-11) % Eos % (Auto) 2.5 (0-4) % Baso % (Auto) 0.5 (0-2) % Lymph # (Auto) 2.2 (1.2-4.9) X10*3/uL [place] # (Auto) 1.1 (0.1-1.2) X10*3/uL Eos # (Auto) 0.2 (0.0-0.4) X10*3/uL Baso # (Auto) 0.1 (0.0-0.2) X10*3/uL Abs Immat Gran (auto) 0.02 (0.00-0.03) X10*3/uL Absolute Neuts (auto) 6.0 (2.0-8.3) x10*3/uL Absolute Nucleated RBC 0.000 (0.0-0.012) X10*3/uL Nucleated RBC % (auto) 0.0 (0.0-0.2) /100WBC VBG pH 7.41 (7.32-7.43) VBG pCO2 44 mmHg VBG pO2 103 mmHg VBG HCO3 28 H (22-26) mmol/L VBG O2 Saturation 99.0 % VBG Base Excess 3.2 mmol/L Sodium 142 (135-145) mmol/L Potassium 3.5 (3.3-5.1) mmol/L Chloride 107 (96-108) mmol/L Carbon Dioxide 23 (22-29) mmol/L Anion Gap 16 (12-20) BUN 17 H (9-16) mg/dL Creatinine 0.86 (0.5-1.4) mg/dL Estim Creat Clear Calc 72.3 Estimated GFR > 60 Random Glucose 149 H (60-115) mg/dL Calcium 9.3 (8.4-10.2) mg/dL Magnesium 2.2 (1.6-2.6) mg/dL B-Natriuretic Peptide 78 (<100) pg/mL Independent Interpretation I performed an independent interpretation of an: EKG Interpretation: sinus tachycardia with a rate of 123 beats minute. Prescription Management I considered prescription management with: Antibiotic Discharge Plan Discharge Clinical Impression: Acute on chronic hypoxic respiratory failure Prescriptions: No Action ipratropium-albuterol 0.5 mg-3 mg(2.5 mg base)/3 mL solution for nebulization 3 ml inhalation Q4H PRN (Reason: for dyspnea) Qty: 180 11RF valsartan 80 mg tablet 80 mg PO DAILY Qty: 30 2RF verapamil 120 mg tablet 120 mg PO BID@0500,2000 baclofen 10 mg tablet 10 mg PO TID@0500,1200,2000 lorazepam 0.5 mg tablet 0.5 mg PO DAILY PRN (Reason: MODERATE Anxiety) Trelegy Ellipta 200-62.5-25 mcg blister with device 1 ea INHALATION DAILY hydrocodone-acetaminophen 5-325 mg tablet 1 tab PO DAILY Rx Instructions: Partial Fill upon patient request. atorvastatin 80 mg tablet 80 mg PO DAILY@1999 yjqlaqrrux-nronomdisdymp-tgok 50-325-40 mg tablet 1 tab PO DAILY MRX1 PRN (Reason: Headache) hyoscyamine sulfate 0.125 mg tablet 0.25 mg PO Q6H PRN (Reason: Abdominal Discomfort) gabapentin 300 mg capsule 1,200 mg PO TID@0500,1200,1999 duloxetine 60 mg capsule,delayed release(DR/EC) 60 mg PO BID@050,1999 oxcarbazepine 600 mg tablet 450 mg PO BID@0500,1999 (DME) nebulizer and compressor Device See Rx Instructions .Route Qty: 1 0RF Rx Instructions: As directed albuterol sulfate 90 mcg/actuation HFA aerosol inhaler 2 puff inhalation Q4H PRN (Reason: Shortness Of Breath Or Wheezing) aspirin 81 mg tablet,delayed release (DR/EC) 81 mg PO DAILY@1999 calcium carbonate-vitamin D3 600 mg-5 mcg (200 unit) tablet 1 tab PO DAILY@1999 clonidine HCl 0.1 mg tablet 0.1 mg PO TID Protocol: Hold for SBP< HOLD for SBP < : 90 roflumilast [Daliresp] 500 mcg tablet 500 mcg PO DAILY 30 Days Qty: 30 11RF prednisone 10 mg tablet See Rx Instructions PO DAILY 18 Days Qty: 63 0RF Rx Instructions: PO daily; Take 6 tabs daily x 3 days, then 5 tabs x 3 days, then 4 tabs x 3 days, then 3 tabs x 3 days, then 2 tabs daily x 3 days, then 1 tab x 3 days to complete. prazosin 2 mg capsule 2 mg PO DAILY@1999 (DME) Oxygen Home Use Kit See Rx Instructions .Route Rx Instructions: As directed Print Language: Argentine
[2024-10-29 03:39] LABS: MANUAL DIFF FLAG NO
[2024-10-29] MEDS: Magnesium Sulfate/H2O 2 GM/50 ML PIGGYBACK IV (03:39)
[2024-10-29 03:40] LABS: Basophils Absolute Auto 0.1 X10*3/uL (0.0-0.2); Basophils Percent Auto 0.5 % (0-2); Eosinophils Absolute Auto 0.2 X10*3/uL (0.0-0.4); Eosinophils Percent Auto 2.5 % (0-4); Hematocrit 35.7 % (37.0-47.0); Hemoglobin 11.8 g/dl (12.0-16.0); Imm Gran Abs Auto 0.02 X10*3/uL (0.00-0.03); Imm Gran Pct Auto 0.2 % (0.0-0.4); Lymphocytes Absolute Auto 2.2 X10*3/uL (1.2-4.9); Lymphocytes Percent Auto 22.8 % (20-40); Mean Corpuscular HGB Conc 33.1 g/dl (31.0-35.0); Mean Corpuscular Hemoglobin 31.9 pg (27.0-33.0); Mean Corpuscular Volume 96.5 fL (80.0-98.0); Mean Platelet Volume 9.4 fL (9.4-12.3); Monocytes Absolute Auto 1.1 X10*3/uL (0.1-1.2); Monocytes Percent Auto 11.8 % (2-11); Neutrophils Percent Auto 62.2 % (45-73); Platelet Count 349 X10*3/uL (160-400); Red Cell Distribution Width 14.1 % (11.0-16.0); White Blood Count 9.6 X10*3/uL (4.8-10.8)
[2024-10-29 03:41] LABS: Venous Blood Gas Refer to POC result
[2024-10-29 03:42] LABS: VBG Base Excess 3.2 mmol/L; VBG HCO3 28 mmol/L (22-26); VBG pCO2 44 mmHg; VBG pH 7.41 (7.32-7.43); VBG pO2 103 mmHg
[2024-10-29 03:51] LABS: Anion Gap 16 (12-20); Blood Urea Nitrogen 17 mg/dL (9-16); Calcium 9.3 mg/dL (8.4-10.2); Carbon Dioxide 23 mmol/L (22-29); Chloride 107 mmol/L (96-108); Creatinine Clr Calc Pharmacy 72.3; Estimated Glomerular Filt Rate > 60; Glucose Random 149 mg/dL (60-115); Magnesium 2.2 mg/dL (1.6-2.6); Potassium 3.5 mmol/L (3.3-5.1); Sodium 142 mmol/L (135-145)
[2024-10-29 03:57] LABS: B Type Natriuretic Peptide 78 pg/mL (<100)
--- NOTE | 2024-10-29 04:05 | PC.NURSE ---
PER Black CARLISLE no blood cultures or lactic needed prior to abx
--- NOTE | 2024-10-29 04:08 | P.HPHOSP_ITS ---
History of Present Illness Date of Service: 10/29/24 Attending physician on admission: Jeff Wilkes Chief Complaint: Dyspnea Patient is a 59-year-old female with history of COPD, JUANITO not able to use CPAP due to trigeminal neuralgia, aortic stenosis, hyperlipidemia, headaches, neuropathy, anxiety/panic disorder, tobacco use, and hypertension returns to the ED today with complaints of increased shortness of breath and wheezing with a nonproductive cough and was brought in by EMS. Patient was also in the emergency department yesterday with same complaints and received Solu- Medrol, magnesium and duo nebs and was sent home after a few hours. Viral testing was not done. Viral testing today all negative. Patient is being admitted under observation for noted tachypnea that persists, borderline hypotension with potential for patient to return if she was sent home. Patient did receive azithromycin, magnesium, duo nebs in the emergency department and methylprednisolone in the ambulance.. Chest x-ray from yesterday was negative for acute findings in the chest x-ray was not repeated today. EKG notes a T- wave abnormality in the inferior leads with sinus tachycardia and a normal QTC of 429. Yesterday's EKG included nonspecific ST abnormalities and normal sinus rhythm. Patient's troponin was flat yesterday. BNP today is normal. Most recent echo July 2024 indicated EF hyperdynamic greater than 70% with mild aortic valve stenosis. Repeat troponin pending. Due to patient's clinical presentation, CT scan without contrast ordered. Patient is afebrile with no leukocytosis at this time. Patient is started on antibiotics empirically. Patient currently on an OxyMask satting 94%. VBG reassuring pH 7.41, 44, 103, 28 with a base excess of 3.2. Patient denies any chest pain, abdominal pain, nausea or vomiting. Patient denies any headache or visual changes. Patient reports that she has a history of stroke and is due for an MRI of the brain to evaluate a known aneurysm. Patient does report vaping approximately twice per month CBD and THC oil. Patient denies any exposure to secondhand smoke or allergens as she has a hypoallergenic dog. Patient is noncompliant with her CPAP at home due to trigeminal neuralgia. Review of Systems 2 Review of Systems: Patient currently denies any chest pain, is reporting heaviness with breathing at rest. Patient does have a nonproductive cough. Patient has been wheezing prior to coming in. Patient denies any nausea or vomiting or abdominal pain. Patient does not have any diarrhea or constipation. Patient denies any pain with urination. Yes all other systems are reviewed and are negative [facility] Medical History Panic disorder Hypertension Chronic hypercapnic respiratory failure Aortic stenosis Obesity (BMI 30-39.9) Asthma Acute exacerbation of chronic obstructive pulmonary disease Chronic lung disease Hypogammaglobulinemia Smoker JUANITO (obstructive sleep apnea) Allergies Elevated troponin COPD (chronic obstructive pulmonary disease) Trigeminal neuralgia Pulmonary nodules Mixed hyperlipidemia Peripheral neuropathy Tobacco use disorder Mood disorder Cognitive capacity: Alert and orientated x3 Functional capacity: independent ambulation Patient : No Surgical History History of esophagogastroduodenoscopy (EGD) History of colonoscopy History of lumbar discectomy History of tubal ligation History of excision of mass History of shoulder surgery Social History (Updated 10/29/24 @ 05:10 by ESTEBAN Linder) Household Members: [facility] Do you presently have visiting nurse or other home services: No Alcohol intake: current Alcohol intake frequency: holidays/special occasions only Alcohol type: hard liquor Comment: patient declines bed alarm, ongoing, declines HFR protocol Patient Tobacco Use Status: Former Tobacco user Tobacco use type: Cigarette Cigarette Packs Per Day: 4 Cigarettes Per Day: 80.0 Years Smoked: 40 Smoked in Last 30 Days: No e-Cigarette/Vaping Use: Currently Using Frequency of e-Cigarette/Vaping Use: CBD THC oil at least twice per month Second Hand Smoke Exposure: No Use of substances other than those prescribed or required for medical reasons: Yes Substance Use Type: Marijuana Substance Use Type Other:: Marijuana in the form of edibles, patient vapes CBD and THC oil Advance Directives: Yes Advance Directives on File: Yes Advance Directives Date on File: 03/09/23 Patient : No service: No Ebola Risk: Travel/Contact With Anyone From Affected Area/s: No Has Patient Experienced Ebola Symptoms: No Meds Allergies Allergy/AdvReac Type Severity Reaction Status Date / Time Iodinated Contrast Media Allergy Intermediate HIVES Verified 10/29/24 02:59 [IV CONTRAST] latex [LATEX] Allergy Unknown RASH Verified 10/29/24 02:59 adhesive tape Allergy Rash Verified 10/29/24 02:59 morphine [MORPHINE] AdvReac Unknown VOMITING Verified 10/29/24 02:59 Active Medications: Current Medications Azithromycin 500 mg/ Sodium (Chloride) 250 mls @ 125 mls/hr IV ONCE ONE Stop: 10/29/24 05:51 Home Medications ?Medication ?Instructions ?Recorded ?Confirmed ?Last Taken ?Type atorvastatin 80 mg tablet 80 mg PO DAILY@199903/04/23 08/22/24 08/21/24 History opncpsabco-mjbrjuqpogqql-wjnzfwpx 1 tab PO DAILY MRX1 PRN Headache 03/04/23 08/22/24 05/21/24 20:00 History 50 mg-325 mg-40 mg tablet duloxetine 60 mg capsule,delayed 60 mg PO BID@0500,199903/04/23 08/22/24 08/22/24 History release gabapentin 300 mg capsule 1,200 mg PO TID@0500,1200,199903/04/23 08/22/24 08/22/24 History hyoscyamine sulfate 0.125 mg tablet 0.25 mg PO Q6H PRN Abdominal 03/04/23 08/22/24 05/21/24 20:00 History Discomfort Oxygen Home Use 04/16/23 03/10/24 03/10/24 History prazosin 2 mg capsule 2 mg PO DAILY@199904/16/23 08/22/24 08/21/24 History albuterol sulfate 90 mcg/actuation 2 puff inhalation Q4H PRN 01/31/24 08/22/24 05/21/24 20:00 History aerosol inhaler Shortness Of Breath Or Wheezing aspirin 81 mg tablet,delayed 81 mg PO DAILY@199905/22/24 08/22/24 08/21/24 History release calcium 600 mg (as 1 tab PO DAILY@199906/20/24 08/22/24 08/21/24 History carbonate)-vitamin D3 5 mcg (200 unit) tablet verapamil 120 mg tablet 120 mg PO BID@0500,199907/02/24 08/22/24 08/22/24 History lorazepam 0.5 mg tablet 0.5 mg PO DAILY PRN MODERATE 08/03/24 08/22/24 Unknown History Anxiety fluticasone fur. 200 mcg-umeclid 1 ea inhalation DAILY 08/22/24 08/22/24 08/22/24 History 62.5 mcg-vilant 25 mcg inhalat.powder (Trelegy Ellipta) hydrocodone 5 mg-acetaminophen 325 1 tab PO DAILY 08/22/24 08/22/24 08/22/24 History mg tablet baclofen 10 mg tablet 10 mg PO TID@0500,1199,199910/06/24 Unknown History clonidine HCl 0.1 mg tablet 0.1 mg PO TID 10/06/24 Unknown History oxcarbazepine 600 mg tablet 450 mg PO BID@0500,199910/06/24 Unknown History Physical Exam 2 Vital Signs and Narrative: Vital Signs: Last Vital Signs Temp 97.9 F 10/29/24 03:01 Pulse 110 H 10/29/24 04:04 Resp 23 H 10/29/24 04:04 BP 107/47 L 10/29/24 04:04 Pulse Ox 92 10/29/24 04:04 O2 Del Method Oxymask 10/29/24 04:04 O2 Flow Rate 2 10/29/24 04:04 BMI result Body Mass Index 39.6 Alert and orientated X3, able to give good history. Sleepy at times. Neuro: CN II-X11 intact, no deficits, visual acuity intact, glasses on EYES: PERRLA, EOM intact ENT: hearing intact, no issues with swallowing, uvula midline, lips moist, nares patent no epistaxis Cardiac: S1 S2 tachycardic, no obvious murmur, no JVD, no edema in Lower ext Pulmonary: lungs bilateral wheeze with rhonchi, no labored breathing Abdominal: BS active in all 4 quadrants, no guarding, tenderness, rebounding MSK: strength 4/5 upper and lower extremities : no CVA tenderness no bladder distension Extremities: no edema in lower extremities, PT and DP pulses palpable +2 Psych: mood stable, judgement and insight good Skin: Intact Results Labs 10/29/24 03:33 10/29/24 03:33 Labs: Laboratory Results - last 24 hr 10/29/24 10/29/24 03:33 03:38 MCV 96.5 MCH 31.9 MCHC 33.1 RDW 14.1 Plt Count 349 MPV 9.4 Immature Gran % (Auto) 0.2 Neut % (Auto) 62.2 Lymph % (Auto) 22.8 [place] % (Auto) 11.8 H Eos % (Auto) 2.5 Baso % (Auto) 0.5 Lymph # (Auto) 2.2 [place] # (Auto) 1.1 Eos # (Auto) 0.2 Baso # (Auto) 0.1 Abs Immat Gran (auto) 0.02 Absolute Neuts (auto) 6.0 Absolute Nucleated RBC 0.000 Nucleated RBC % (auto) 0.0 VBG pH 7.41 VBG pCO2 44 VBG pO2 103 VBG HCO3 28 H VBG O2 Saturation 99.0 VBG Base Excess 3.2 Anion Gap 16 Estim Creat Clear Calc 72.3 Estimated GFR > 60 Random Glucose 149 H Calcium 9.3 Magnesium 2.2 B-Natriuretic Peptide 78 ECG Attestation: I personally reviewed and interpreted this ECG as follows: (Sinus tachycardia T-wave abnormality lateral leads) Prior ECG tracings: available for review Assessment and Plan (1) COPD exacerbation: Status: Acute Plan Patient is a 59-year-old female with history of COPD, JUANITO not able to use CPAP due to trigeminal neuralgia, aortic stenosis, hyperlipidemia, headaches, neuropathy, anxiety/panic disorder, tobacco use, vapes marijuana, and hypertension presents to the emergency department via EMS with increased shortness of breath and wheezing. Patient can not use her sleep apnea due to trigeminal neuralgia. Patient was seen in the ED yesterday and after treatment was sent home. Patient is being admitted under observation for noted tachypnea, tachycardia, borderline low blood pressure but satting 94% on room air. Patient did receive magnesium, duo nebs and azithromycin and Solu-Medrol with EMS. COPD exacerbation -based on patient's clinical presentation, CT without contrast due to patient allergy has been ordered -continue oxygenation via OxyMask, wean to nasal cannula as tolerated -duo nebs and budesonide ordered -continuing Solu-Medrol 60 mg IV b.i.d. -incentive spirometer -patient is started empirically on antibiotics, no evidence of sepsis -patient educated on the benefits of using oxygen as prescribed at home, concerns that there is a level of noncompliance Tachycardia -likely from respiratory demand -EKG reviewed with the attending Dr. Wilkes, no acute concerns -patient is chest pain-free -telemetry -troponin pending -avoid beta-ed due to patient's respiratory status JUANITO -patient does not use her CPAP at home due to trigeminal neuralgia -patient counseled on the benefits of using CPAP or being re-evaluated for alternative treatment -patient would need pulmonary consultation as an outpatient DVT prophylaxis: Lovenox Med rec pending Full code status Quality Stroke Does the patient have a stroke diagnosis?: No Reason for No Anti-thrombotic by Day Two: N/A - Med Ordered VTE Prior VTE?: No VTE Risk Level:: Medical - moderate - high VTE Device Contraindication: N/A - Device Ordered VTE Drug Contraindication: N/A - Med Ordered
[2024-10-29] MEDS: Azithromycin 500 MG in 0.9 % Sodium Chloride 250 ML 125 MG IV (04:11)
[2024-10-29 04:17] LABS: Influenza A PCR NEGATIVE (Negative); Influenza B PCR NEGATIVE (Negative); Resp Syncy Virus RNA Qual PCR NEGATIVE (Negative); SARS COV2 PCR INHOUSE NEGATIVE (Negative)
[2024-10-29 05:37] LABS: Troponin-I High Sensitivity 14.5 ng/L (<3.5-17.0)
[2024-10-29 05:52] LABS: Thyroid Stimulating Hormone 3.01 uIU/mL (0.32-4.0)
[2024-10-29 05:56] LABS: MANUAL DIFF FLAG NO
[2024-10-29 05:57] LABS: Basophils Percent Auto 0.3 % (0-2); Eosinophils Absolute Auto 0.1 X10*3/uL (0.0-0.4); Eosinophils Percent Auto 0.8 % (0-4); Hemoglobin 11.9 g/dl (12.0-16.0); Imm Gran Abs Auto 0.06 X10*3/uL (0.00-0.03); Imm Gran Pct Auto 0.7 % (0.0-0.4); Lymphocytes Absolute Auto 0.6 X10*3/uL (1.2-4.9); Lymphocytes Percent Auto 6.2 % (20-40); Mean Corpuscular HGB Conc 32.2 g/dl (31.0-35.0); Mean Corpuscular Hemoglobin 31.6 pg (27.0-33.0); Mean Corpuscular Volume 98.1 fL (80.0-98.0); Mean Platelet Volume 9.5 fL (9.4-12.3); Monocytes Absolute Auto 0.3 X10*3/uL (0.1-1.2); Monocytes Percent Auto 3.5 % (2-11); Neutrophils Absolute Auto 7.9 x10*3/uL (2.0-8.3); Neutrophils Percent Auto 88.5 % (45-73); Platelet Count 353 X10*3/uL (160-400); Red Blood Count 3.77 X10*6/uL (4.20-5.50); Red Cell Distribution Width 14.2 % (11.0-16.0); White Blood Count 8.9 X10*3/uL (4.8-10.8)
[2024-10-29] MEDS: Enoxaparin Sodium 40 MG/0.4 ML SYRINGE SUBCUT (06:01)
[2024-10-29] MEDS: cefTRIAXone sodium 1 GM VIAL IVPUSH (06:02)
[2024-10-29] MEDS: Furosemide 20 MG/2 ML VIAL IVPUSH (06:02)
[2024-10-29 06:10] LABS: Anion Gap 18 (12-20); Blood Urea Nitrogen 16 mg/dL (9-16); Carbon Dioxide 21 mmol/L (22-29); Chloride 107 mmol/L (96-108); Creatinine Clr Calc Pharmacy 71.5; Estimated Glomerular Filt Rate > 60; Glucose Random 156 mg/dL (60-115); Potassium 3.5 mmol/L (3.3-5.1); Sodium 142 mmol/L (135-145)
--- NOTE | 2024-10-29 07:30 | PC.NURSE ---
Assumed care of pt at 0700. Pt resting in bed quietly, a/ox3, able to speak in full sentences, respirations even and unlabored, no increased wob/sob noted, expiratory wheezing heard on assessment, maintaining O2 sat >92% on 3L NC. Per pt- baseline wears 2-3L O2 NC, nsr on secured entrance monitor, HR 80s denies cp/dizziness/lightheadedness. Pt updated on plan of care, call dumont within reach, all needs met at this time.
[2024-10-29] MEDS: Albuterol/Iprat 2.5/0.5MG 3 ML AMPUL.NEB INHALE ×3 (07:43→18:15)
[2024-10-29] MEDS: Budesonide 0.5 MG/2 ML AMPUL.NEB 1 MG INHALE (07:43)
--- NOTE | 2024-10-29 10:10 | PC.NURSE ---
Pt declined to take medications scheduled for 10am. Pt requesting to take all home meds at the same time. MD bang.
--- NOTE | 2024-10-29 10:19 | PHA.MEDREC ---
Addendum entered by Loida Burnett RPh 10/29/24 18:27: Reviewed by [facility] Original Note: Pharmacy Consult ? Medication Reconciliation Pharmacy has completed the medication reconciliation. Spoke to pt to confirm meds. Of note, pt states no longer taking clonidine or hydrocodone-acetaminophen. Pt states the following recent med changes: oxcarbazepine 300 mg BID, lorazepam 1 mg PRN, Oxycodone 5 mg BID, Abilify 2 mg daily, daliresp 500 mcg daily, and valsartan 80 mg daily.
[2024-10-29] MEDS: 0.9 % Sodium Chloride Flush 3 ML SYRINGE IVFLUSH ×3 (11:25→21:58)
[2024-10-29] MEDS: oxyCODONE HCl Immed Release 5 MG TABLET PO ×3 (11:25→21:54)
[2024-10-29] MEDS: LORazepam 0.5 MG TABLET PO ×2 (11:25→21:54)
--- NOTE | 2024-10-29 12:58 | PC.NURSE ---
900mls emptied from purewick canister. Pt cleaned up and repositioned in bed. Call dumont within reach, all needs met at this time.
--- NOTE | 2024-10-29 13:09 | PC.NURSE ---
Pt stated to this RN she would like to wait on taking her trileptal d/t taking it together with other home medications. Pt now states it's too late to take trilepta- this RN offered pt to take now instead of waiting for other meds. Pt declined to take medication. Trilepta not given.
--- NOTE | 2024-10-29 14:40 | PM.EVENT ---
Event Note Date of Service: 10/29/24 Event Note: seen and evaluated feels little better Still on O@ supplement restart home medications Duonebs, Azithromycin and steroids wean O2 as tolerated Time Spent With Patient Time: Total time managing care of this patient today ____ minutes.
[2024-10-29] MEDS: Roflumilast 500 MCG TABLET PO (15:27)
[2024-10-29] MEDS: ARIPiprazole 2 MG TABLET PO (15:27)
[2024-10-29] MEDS: Valsartan 80 MG TABLET PO (15:27)
[2024-10-29] MEDS: Benzonatate 100 MG CAPSULE PO (18:05)
[2024-10-29] MEDS: Prazosin HCL 1 MG CAPSULE 2 MG PO (21:38)
[2024-10-29] MEDS: Atorvastatin Calcium 80 MG TABLET PO (21:39)
[2024-10-29] MEDS: Aspirin Enteric Coated 81 MG TABLET.DR PO (21:39)
[2024-10-29] MEDS: OXcarbazepine 300 MG TABLET PO (21:40)
[2024-10-29] MEDS: Baclofen 20 MG TABLET PO (21:53)
[2024-10-29] MEDS: Gabapentin 400 MG CAPSULE 1200 MG PO (21:53)
[2024-10-29] MEDS: Calcium Carbonate 750 MG TAB.CHEW PO (21:53)
[2024-10-29] MEDS: VerapamiL HCL 120 MG TABLET PO (21:53)
[2024-10-29] MEDS: DULoxetine HCl 60 MG CAPSULE.DR PO (21:54)
[2024-10-30] VITALS (8 sets, daily range): BP systolic 135–173; BP diastolic 65–84; PULSE 67–95; RESP 16–20; TEMP 36.1–36.6; O2SAT 94–96
[2024-10-30] MEDS: Albuterol/Iprat 2.5/0.5MG 3 ML AMPUL.NEB INHALE ×2 (01:15→20:56)
[2024-10-30] MEDS: Benzonatate 100 MG CAPSULE PO (02:15)
[2024-10-30] MEDS: cefTRIAXone sodium 1 GM VIAL IVPUSH (04:04)
[2024-10-30] MEDS: Azithromycin 500 MG in 0.9 % Sodium Chloride 250 ML 125 MG IV (04:23)
[2024-10-30] MEDS: Valsartan 80 MG TABLET PO (05:34)
[2024-10-30] MEDS: OXcarbazepine 300 MG TABLET PO ×2 (05:34→21:41)
[2024-10-30] MEDS: ARIPiprazole 2 MG TABLET PO (05:34)
[2024-10-30] MEDS: Gabapentin 400 MG CAPSULE 1200 MG PO ×3 (05:35→21:36)
[2024-10-30] MEDS: VerapamiL HCL 120 MG TABLET PO ×2 (05:35→21:41)
[2024-10-30] MEDS: Roflumilast 500 MCG TABLET PO (05:35)
[2024-10-30] MEDS: Baclofen 20 MG TABLET PO ×3 (05:35→21:39)
[2024-10-30] MEDS: DULoxetine HCl 60 MG CAPSULE.DR PO ×2 (05:36→21:40)
[2024-10-30] MEDS: Enoxaparin Sodium 40 MG/0.4 ML SYRINGE SUBCUT (05:38)
[2024-10-30 05:41] LABS: MANUAL DIFF FLAG NO
[2024-10-30 05:45] LABS: Basophils Percent Auto 0.1 % (0-2); Hematocrit 41.4 % (37.0-47.0); Hemoglobin 13.2 g/dl (12.0-16.0); Imm Gran Abs Auto 0.04 X10*3/uL (0.00-0.03); Imm Gran Pct Auto 0.5 % (0.0-0.4); Lymphocytes Absolute Auto 0.6 X10*3/uL (1.2-4.9); Lymphocytes Percent Auto 6.5 % (20-40); Mean Corpuscular HGB Conc 31.9 g/dl (31.0-35.0); Mean Corpuscular Hemoglobin 31.6 pg (27.0-33.0); Mean Platelet Volume 9.7 fL (9.4-12.3); Monocytes Absolute Auto 0.3 X10*3/uL (0.1-1.2); Neutrophils Absolute Auto 7.6 x10*3/uL (2.0-8.3); Neutrophils Percent Auto 88.9 % (45-73); Platelet Count 365 X10*3/uL (160-400); Red Blood Count 4.18 X10*6/uL (4.20-5.50); Red Cell Distribution Width 14.1 % (11.0-16.0); White Blood Count 8.6 X10*3/uL (4.8-10.8)
[2024-10-30 06:06] LABS: Anion Gap 17 (12-20); Blood Urea Nitrogen 16 mg/dL (9-16); Calcium 9.8 mg/dL (8.4-10.2); Carbon Dioxide 24 mmol/L (22-29); Chloride 106 mmol/L (96-108); Creatinine Clr Calc Pharmacy 87.6; Estimated Glomerular Filt Rate > 60; Glucose Random 131 mg/dL (60-115); Potassium 4.9 mmol/L (3.3-5.1); Sodium 142 mmol/L (135-145)
--- NOTE | 2024-10-30 06:35 | PC.NURSE ---
Late entry: Pt refusing all alarms, despite being moderate fall risk. Pt is A&Ox4, steady on feet. Pt educated on the importance of the fall risk policy, pt still refused, pt told this RN that she will ring when needed assistance OOB. Pt's bed in the lowest position, call julia w/in reach. Will continue to monitor.
[2024-10-30] MEDS: Budesonide 0.5 MG/2 ML AMPUL.NEB 1 MG INHALE ×2 (07:59→20:56)
[2024-10-30] MEDS: Fluticasone/Umeclidinium/Vilanterol 200/62.5/25 BLST.W.DEV 1 PUFF INHALE (07:59)
[2024-10-30] MEDS: oxyCODONE HCl Immed Release 5 MG TABLET PO ×2 (09:17→21:38)
[2024-10-30] MEDS: LORazepam 0.5 MG TABLET PO ×2 (09:17→21:37)
[2024-10-30] MEDS: guaiFEN/Codeine SF 200/20/10ML 10 ML LIQUID PO ×2 (10:29→21:49)
[2024-10-30] MEDS: guaiFENesin DM 600/30 1 TAB TAB.ER.12H PO ×2 (11:48→21:39)
[2024-10-30] MEDS: Furosemide 20 MG/2 ML VIAL IVPUSH (12:08)
--- NOTE | 2024-10-30 14:19 | MHC.CM.PN ---
PT REPORTS SHE LIVES AT HOME WITH HER AND IS TYPICALLY INDEPENDENT WITH CARE SHE HAS HOME O2 AND A ROLLATOR HCP ON FILE PCP: HODA MALDONADO DCP: PT REFUSING STR SHE WAS RECENTLY DISCHARGED FROM [facility] AND WOULD LIKE THEM AGAIN WILL TRANSPORT
--- NOTE | 2024-10-30 15:18 | HO.PM.IMPN ---
Subjective Subjective Date of Service: 10/30/24 Interval History: Seen and evaluated this morning feels dyspnea coughing wheezing no other events Review of Systems Review of Systems: Yes all other systems are reviewed and are negative Physical Exam Vital Signs: Vital Signs: Last Vital Signs Temp 97.0 F 10/30/24 08:00 Pulse 95 10/30/24 08:02 Resp 20 10/30/24 08:02 BP 135/65 10/30/24 08:00 Pulse Ox 95 10/30/24 08:00 O2 Del Method Nasal Cannula 10/30/24 08:00 O2 Flow Rate 2 10/30/24 08:00 BMI result Body Mass Index 39.6 Const: Other: Constitutional : Awake, interactive, not in distress Neck : Normal inspection, Supple Cardiovascular : RRR, no JVP, no lower extremity edema Respiratory : decreased bilateral air entry, bilateral expiratory wheezes , audible , on O2 Gastrointestinal: soft, lax, Normal bowel sounds, Non tender Skin : Warm, Dry Neurological : Alert & oriented x3, No focal deficit Objective Data Active Medications Acetaminophen (Acetaminophen 325 Mg Tablet) 650 mg PO Q6H PRN PRN Reason: Pain, Mild 1-3,fever,headache Acetaminophen/Butalbital/Caffeine (Butalb/Acetamin/Caff 50/325/40 Tablet) 1 tab PO DAILY MRX1 PRN PRN Reason: Migraine Headache Albuterol Sulfate (Albuterol Sulfate 90 Mcg 8 Gm Inhaler) 2 puff INHALE Q4H PRN PRN Reason: Shortness Of Breath Or Wheezing Albuterol/Ipratropium (Albuterol/Iprat 2.5/0.5mg 3 Ml Ampul.Neb) 3 ml INHALE Q4H PRN PRN Reason: Shortness of Breath/Wheezing Last Admin: 10/30/24 01:15 Dose: 3 ml Documented By: JOHN Aripiprazole (Aripiprazole 2 Mg Tablet) 2 mg PO DAILY [facility] Last Admin: 10/30/24 05:34 Dose: 2 mg Documented By: BLAINE Aspirin (Aspirin Enteric Coated 81 Mg Tablet.) 81 mg PO DAILY@1999 [facility] Last Admin: 10/29/24 21:39 Dose: 81 mg Documented By: BLAINE Atorvastatin Calcium (Atorvastatin Calcium 80 Mg Tablet) 80 mg PO DAILY@1999 [facility] Last Admin: 10/29/24 21:39 Dose: 80 mg Documented By: BLAINE Azithromycin (Azithromycin 250 Mg Tablet) 250 mg PO Q24H [facility] Baclofen (Baclofen 20 Mg Tablet) 20 mg PO TID@0500,1200,1999 [facility] Last Admin: 10/30/24 11:48 Dose: 20 mg Documented By: MICHI Benzonatate (Benzonatate 100 Mg Capsule) 100 mg PO TID PRN PRN Reason: Cough Last Admin: 10/30/24 02:15 Dose: 100 mg Documented By: BLAINE Budesonide (Budesonide 0.5 Mg/2 Ml Ampul.Neb) 1 mg INHALE RBID [facility] Last Admin: 10/30/24 07:59 Dose: 1 mg Documented By: WILL Calcium Carbonate (Calcium Carbonate 750 Mg Tab.Chew) 750 mg PO Q4H PRN PRN Reason: Heartburn Last Admin: 10/29/24 21:53 Dose: 750 mg Documented By: BLAINE Ceftriaxone Sodium (Ceftriaxone Sodium 1 Gm Vial) 1 gm IVPUSH Q24H [facility] Last Admin: 10/30/24 04:04 Dose: 1 gm Documented By: BLAINE Duloxetine HCl (Duloxetine Hcl 60 Mg Capsule.Dr) 60 mg PO BID@ [facility] Last Admin: 10/30/24 05:36 Dose: 60 mg Documented By: BLAINE Enoxaparin Sodium (Enoxaparin Sodium 40 Mg/0.4 Ml Syringe) 40 mg SUBCUT Q24H [facility] Last Admin: 10/30/24 05:38 Dose: 40 mg Documented By: BLAINE Fluticasone/Umeclidinium/Vilanterol (Fluticasone/Umeclidinium/Vilanterol 200/62.5/25 Blst.W.Dev) 1 puff INHALE RDAILY [facility] Last Admin: 10/30/24 07:59 Dose: 1 puff Documented By: WILL Furosemide (Furosemide 20 Mg/2 Ml Vial) 20 mg IVPUSH DAILY [facility]; Protocol Last Admin: 10/30/24 12:08 Dose: 20 mg Documented By: MICHI Gabapentin (Gabapentin 400 Mg Capsule) 1,200 mg PO TID@0500,1199,1999 [facility] Last Admin: 10/30/24 11:48 Dose: 1,200 mg Documented By: MICHI Guaifenesin/Codeine Phosphate (Guaifen/Codeine Sf 200/20/10ml 10 Ml Liquid) 10 ml PO Q6H PRN PRN Reason: Cough Last Admin: 10/30/24 10:29 Dose: 10 ml Documented By: MICHI Guaifenesin/Dextromethorphan (Guaifenesin Dm 600/30 1 Tab Tab.Er.12h) 1 tab PO BID [facility] Last Admin: 10/30/24 11:48 Dose: 1 tab Documented By: MICHI Lorazepam (Lorazepam 0.5 Mg Tablet) 0.5 mg PO Q8H PRN PRN Reason: anxiety/restlessness Last Admin: 10/30/24 09:17 Dose: 0.5 mg Documented By: MICHI Magnesium Hydroxide (Milk Of Magnesia 30 Ml Oral.Susp) 30 ml PO DAILY PRN PRN Reason: Constipation Melatonin (Melatonin 3 Mg Tablet) 6 mg PO BEDTIME PRN PRN Reason: Insomnia Methylprednisolone Sodium Succinate (Methylprednisolone Sod Succ 125 Mg Vial) 60 mg IVPUSH Q12H [facility] Last Admin: 10/30/24 11:48 Dose: 60 mg Documented By: MICHI Ondansetron HCl (Ondansetron Hcl 4 Mg/2 Ml Vial) 4 mg IVPUSH Q8H PRN PRN Reason: Nausea and Vomiting Oxcarbazepine (Oxcarbazepine 300 Mg Tablet) 300 mg PO BID [facility] Last Admin: 10/30/24 05:34 Dose: 300 mg Documented By: BLAINE Oxycodone HCl (Oxycodone Hcl Immed Release 5 Mg Tablet) 5 mg PO Q6H PRN PRN Reason: Pain, Severe (Pain Scale 7-10) Last Admin: 10/30/24 09:17 Dose: 5 mg Documented By: MICHI Oxycodone HCl (Oxycodone Hcl Immed Release 5 Mg Tablet) 5 mg PO BID PRN PRN Reason: Severe Pain (Scale Score 7-10) Prazosin HCl (Prazosin Hcl 1 Mg Capsule) 2 mg PO DAILY@1999 [facility]; Protocol Last Admin: 10/29/24 21:38 Dose: 2 mg Documented By: BLAINE Roflumilast (Roflumilast 500 Mcg Tablet) 500 mcg PO DAILY [facility] Last Admin: 10/30/24 05:35 Dose: 500 mcg Documented By: BLAINE Sodium Chloride (0.9 % Sodium Chloride Flush 3 Ml Syringe) 3 ml IVFLUSH QSHIFT [facility] Last Admin: 10/30/24 07:24 Dose: Not Given Documented By: MICHI Non-Admin Reason: Previously Administered Valsartan (Valsartan 80 Mg Tablet) 80 mg PO DAILY [facility]; Protocol Last Admin: 10/30/24 05:34 Dose: 80 mg Documented By: BLAINE Comments: per pt takes medication at 5AM Verapamil HCl (Verapamil Hcl 120 Mg Tablet) 120 mg PO BID@0500,2000 [facility]; Protocol Last Admin: 10/30/24 05:35 Dose: 120 mg Documented By: BLAINE Labs 10/30/24 05:22 10/30/24 05:22 Labs: Laboratory Results - last 24 hr 10/30/24 05:22 MCV 99.0 H MCH 31.6 MCHC 31.9 RDW 14.1 Plt Count 365 MPV 9.7 Immature Gran % (Auto) 0.5 H Neut % (Auto) 88.9 H Lymph % (Auto) 6.5 L [place] % (Auto) 4.0 Eos % (Auto) 0.0 Baso % (Auto) 0.1 Lymph # (Auto) 0.6 L [place] # (Auto) 0.3 Eos # (Auto) 0.0 Baso # (Auto) 0.0 Abs Immat Gran (auto) 0.04 H Absolute Neuts (auto) 7.6 Absolute Nucleated RBC 0.000 Nucleated RBC % (auto) 0.0 Anion Gap 17 Estim Creat Clear Calc 87.6 Estimated GFR > 60 Random Glucose 131 H Calcium 9.8 D Assessment and Plan (1) COPD exacerbation: Status: Acute Plan Patient is a 59-year-old female with history of COPD, JUANITO not able to use CPAP due to trigeminal neuralgia, aortic stenosis, hyperlipidemia, headaches, neuropathy, anxiety/panic disorder, tobacco use, vapes marijuana, and hypertension presents to the emergency department via EMS with increased shortness of breath and wheezing. Patient can not use her sleep apnea due to trigeminal neuralgia. Patient was seen in the ED yesterday and after treatment was sent home. Patient is being admitted under observation for noted tachypnea, tachycardia, borderline low blood pressure but satting 94% on room air. Patient did receive magnesium, duo nebs and azithromycin and Solu-Medrol with EMS. Acute COPD exacerbation Still wheezy, dyspneic, unable to tolerate minimal exercise CT without contrast due to patient allergy has been ordered wean O2 down as tolerated duo nebs and budesonide ordered continuing Solu-Medrol 60 mg IV b.i.d. incentive spirometer Azithromycin PO educated on the benefits of using oxygen as prescribed at home, concerns that there is a level of noncompliance JUANITO patient does not use her CPAP at home due to trigeminal neuralgia patient counseled on the benefits of using CPAP or being re-evaluated for alternative treatment patient would need pulmonary consultation as an outpatient DVT prophylaxis: Lovenox Full code status Quality Stroke Does the patient have a stroke diagnosis?: No Reason for No Anti-thrombotic by Day Two: N/A - Med Ordered VTE Prior VTE?: No VTE Risk Level:: Medical - moderate - high VTE Device Contraindication: N/A - Device Ordered VTE Drug Contraindication: N/A - Med Ordered
[2024-10-30] MEDS: 0.9 % Sodium Chloride Flush 3 ML SYRINGE IVFLUSH ×2 (17:47→23:05)
[2024-10-30] MEDS: Atorvastatin Calcium 80 MG TABLET PO (21:36)
[2024-10-30] MEDS: Aspirin Enteric Coated 81 MG TABLET.DR PO (21:38)
[2024-10-30] MEDS: Prazosin HCL 1 MG CAPSULE 2 MG PO (21:42)
[2024-10-30] MEDS: CHOLECALCIFEROL PO (21:43)
[2024-10-30] MEDS: CALCIUM CARBONATE PO (21:43)
[2024-10-30] MEDS: HYOSCYAMINE SULFATE 0.125 MG 0.25 EACH PO (21:44)
[2024-10-30] MEDS: Calcium Carbonate 750 MG TAB.CHEW PO (21:49)
[2024-10-31 04:00] VITALS: BP 134/65; PULSE 83; RESP 16; TEMP 36; O2SAT 93
[2024-10-31] MEDS: ARIPiprazole 2 MG TABLET PO (05:03)
[2024-10-31] MEDS: Valsartan 80 MG TABLET PO (05:03)
[2024-10-31] MEDS: Gabapentin 400 MG CAPSULE 1200 MG PO ×2 (05:03→11:51)
[2024-10-31] MEDS: DULoxetine HCl 60 MG CAPSULE.DR PO (05:03)
[2024-10-31] MEDS: Baclofen 20 MG TABLET PO ×2 (05:04→11:51)
[2024-10-31] MEDS: Roflumilast 500 MCG TABLET PO (05:04)
[2024-10-31] MEDS: VerapamiL HCL 120 MG TABLET PO (05:04)
[2024-10-31] MEDS: OXcarbazepine 300 MG TABLET PO (05:04)
[2024-10-31] MEDS: cefTRIAXone sodium 1 GM VIAL IVPUSH (05:11)
[2024-10-31] MEDS: Enoxaparin Sodium 40 MG/0.4 ML SYRINGE SUBCUT (05:20)
[2024-10-31] MEDS: oxyCODONE HCl Immed Release 5 MG TABLET PO ×2 (05:31→11:51)
[2024-10-31 05:43] LABS: MANUAL DIFF FLAG NO
[2024-10-31 05:45] LABS: Basophils Percent Auto 0.2 % (0-2); Hematocrit 40.1 % (37.0-47.0); Hemoglobin 13.2 g/dl (12.0-16.0); Imm Gran Abs Auto 0.04 X10*3/uL (0.00-0.03); Imm Gran Pct Auto 0.4 % (0.0-0.4); Lymphocytes Percent Auto 10.9 % (20-40); Mean Corpuscular HGB Conc 32.9 g/dl (31.0-35.0); Mean Corpuscular Volume 97.1 fL (80.0-98.0); Mean Platelet Volume 9.5 fL (9.4-12.3); Monocytes Absolute Auto 0.6 X10*3/uL (0.1-1.2); Monocytes Percent Auto 6.1 % (2-11); Neutrophils Absolute Auto 7.5 x10*3/uL (2.0-8.3); Neutrophils Percent Auto 82.4 % (45-73); Platelet Count 405 X10*3/uL (160-400); Red Blood Count 4.13 X10*6/uL (4.20-5.50); Red Cell Distribution Width 13.6 % (11.0-16.0); White Blood Count 9.1 X10*3/uL (4.8-10.8)
[2024-10-31] MEDS: guaiFEN/Codeine SF 200/20/10ML 10 ML LIQUID PO (05:56)
[2024-10-31 05:58] LABS: Anion Gap 17 (12-20); Blood Urea Nitrogen 18 mg/dL (9-16); Calcium 10.4 mg/dL (8.4-10.2); Carbon Dioxide 27 mmol/L (22-29); Chloride 102 mmol/L (96-108); Creatinine Clr Calc Pharmacy 78.7; Estimated Glomerular Filt Rate > 60; Glucose Random 152 mg/dL (60-115); Potassium 4.3 mmol/L (3.3-5.1); Sodium 142 mmol/L (135-145)
[2024-10-31 07:40] VITALS: BP 132/62; PULSE 88; RESP 20; TEMP 36.1; O2SAT 90
[2024-10-31] MEDS: Budesonide 0.5 MG/2 ML AMPUL.NEB 1 MG INHALE (07:46)
[2024-10-31] MEDS: Fluticasone/Umeclidinium/Vilanterol 200/62.5/25 BLST.W.DEV 1 PUFF INHALE (07:47)
[2024-10-31 07:48] VITALS: PULSE 88; RESP 20; O2SAT 91
[2024-10-31] MEDS: guaiFENesin DM 600/30 1 TAB TAB.ER.12H PO (08:05)
[2024-10-31] MEDS: Furosemide 20 MG/2 ML VIAL IVPUSH (08:05)
[2024-10-31] MEDS: 0.9 % Sodium Chloride Flush 3 ML SYRINGE IVFLUSH (08:05)
[2024-10-31] MEDS: Azithromycin 250 MG TABLET PO (08:05)
--- NOTE | 2024-10-31 12:33 | PM.DS ---
DS: Providers Provider Date of Service: 10/31/24 Date of admission: 10/29/24 04:00 Date of discharge: 10/31/24 Primary care physician: Liyah Patterson MD DS: Diagnosis Discharge Diagnosis (1) COPD exacerbation: Status: Acute (2) Acute on chronic hypoxic respiratory failure: Status: Acute DS: Summary Hospital Course Hospital Course: Admission note HPI Patient is a 59-year-old female with history of COPD, JUANITO not able to use CPAP due to trigeminal neuralgia, aortic stenosis, hyperlipidemia, headaches, neuropathy, anxiety/panic disorder, tobacco use, and hypertension returns to the ED today with complaints of increased shortness of breath and wheezing with a nonproductive cough and was brought in by EMS. Patient was also in the emergency department yesterday with same complaints and received Solu-Medrol, magnesium and duo nebs and was sent home after a few hours. Viral testing was not done. Viral testing today all negative. Patient is being admitted under observation for noted tachypnea that persists, borderline hypotension with potential for patient to return if she was sent home. Patient did receive azithromycin, magnesium, duo nebs in the emergency department and methylprednisolone in the ambulance.. Chest x-ray from yesterday was negative for acute findings in the chest x-ray was not repeated today. EKG notes a T-wave abnormality in the inferior leads with sinus tachycardia and a normal QTC of 429. Yesterday's EKG included nonspecific ST abnormalities and normal sinus rhythm. Patient's troponin was flat yesterday. BNP today is normal. Most recent echo July 2024 indicated EF hyperdynamic greater than 70% with mild aortic valve stenosis. Repeat troponin pending. Due to patient's clinical presentation, CT scan without contrast ordered. Patient is afebrile with no leukocytosis at this time. Patient is started on antibiotics empirically. Patient currently on an OxyMask satting 94%. VBG reassuring pH 7.41, 44, 103, 28 with a base excess of 3.2. Patient denies any chest pain, abdominal pain, nausea or vomiting. Patient denies any headache or visual changes. Patient reports that she has a history of stroke and is due for an MRI of the brain to evaluate a known aneurysm. Patient does report vaping approximately twice per month CBD and THC oil. Patient denies any exposure to secondhand smoke or allergens as she has a hypoallergenic dog. Patient is noncompliant with her CPAP at home due to trigeminal neuralgia. Hospital course Acute on chronic hypoxic failure secondary to Acute COPD exacerbation which was treated with Iv Steroids, Bronchodilator nebulizer, Azithromycin as she was weaned down O2 to her baseline. CT without contrast did not show any abnormal infiltratres. educated on the benefits of using oxygen as prescribed at home, concerns that there is a level of noncompliance. She was able to ambulate with no reported dyspnea. JUANITO, patient does not use her CPAP at home due to trigeminal neuralgia. she was counseled on the benefits of using CPAP or being re-evaluated for alternative treatment by Pulmonology as outpatient. Discharge plan Prednisone tapering dose Azithromycin and Lasix for 3 more days Cough medicaitons as needed Use Nebulizer 3-4 times for the next 3 days then as needed Remove rugs and try to get air purifier Follow with [facility] Pulmonology as needed Time Attestation Discharge Coordination Time (in mins): 27 Quality: Safe Use of Opioids Does Pt have an Active Cancer Diagnosis on the Problem List?: No Quality: Stroke Does the patient have a stroke diagnosis?: No Physical Exam Vital Signs: Vital Signs: Last Vital Signs Temp 96.9 F 10/31/24 07:40 Pulse 88 10/31/24 07:48 Resp 20 10/31/24 07:48 BP 132/62 10/31/24 07:40 Pulse Ox 90 L 10/31/24 07:40 O2 Del Method Nasal Cannula 10/31/24 07:40 O2 Flow Rate 1 10/31/24 07:40 BMI result Body Mass Index 39.6 Const: Other: Constitutional : Awake, interactive, not in distress Neck : Normal inspection, Supple Cardiovascular : RRR, no JVP, no lower extremity edema Respiratory : good bilateral air entry, scattered bilateral expiratory wheezes , on O2 Gastrointestinal: soft, lax, Normal bowel sounds, Non tender Skin : Warm, Dry Neurological : Alert & oriented x3, No focal deficit DS: Data Data Completed and Pending Completed studies during hospitalization [Text1]: Procedures Assistance with Respiratory Ventilation, Less than 24 Consecutive Hours, Continuous Positive Airway Pressure (08/22/24) Labs on day of discharge: Laboratory Results - last 24 hr 10/31/24 05:19 WBC 9.1 RBC 4.13 L Hgb 13.2 Hct 40.1 MCV 97.1 MCH 32.0 MCHC 32.9 RDW 13.6 Plt Count 405 H MPV 9.5 Immature Gran % (Auto) 0.4 Neut % (Auto) 82.4 H Lymph % (Auto) 10.9 L [place] % (Auto) 6.1 Eos % (Auto) 0.0 Baso % (Auto) 0.2 Lymph # (Auto) 1.0 L [place] # (Auto) 0.6 Eos # (Auto) 0.0 Baso # (Auto) 0.0 Abs Immat Gran (auto) 0.04 H Absolute Neuts (auto) 7.5 Absolute Nucleated RBC 0.000 Nucleated RBC % (auto) 0.0 Sodium 142 Potassium 4.3 Chloride 102 Carbon Dioxide 27 Anion Gap 17 BUN 18 H Creatinine 0.79 Estim Creat Clear Calc 78.7 Estimated GFR > 60 Random Glucose 152 H Calcium 10.4 H D Additional Comments Additional comments: IMPRESSION: 1. Mild pulmonary emphysema. No evidence of pneumonia. This document has been electronically signed by: Chrissy Boo on 10/29/2024 06:22:34 Discharge Plan Discharge Anticipated Discharge Date/Time: 10/31/24 12:18 Patient Disposition: Home Health Service Discharge Diagnosis: COPD Exacerbation Referrals: Alex [Outside] - 1 Week Liyah Patterson MD [Primary Care Provider] - 1 Week Discharge Medications: New azithromycin 250 mg Tablet 250 mg PO Q24H Qty: 3 0RF benzonatate 100 mg Capsule 100 mg PO TID PRN (Reason: Cough) Qty: 30 0RF codeine-guaifenesin 10-100 mg/5 mL Liquid 10 ml PO Q6H PRN (Reason: Cough) Qty: 473 0RF Mucus DM 30-600 mg Tablet Extended Release 12 Hr 1 tab PO BID Qty: 20 0RF prednisone 10 mg tablet See Taper PO DIRECTED Qty: 30 0RF Taper: Prednisone 40 mg daily for 3 Days and 0 Hour 30 mg daily for 3 Days and 0 Hour 20 mg daily for 3 Days and 0 Hour 10 mg daily for 3 Days and 0 Hour Rx Instructions: see taper instructions furosemide 20 mg tablet 20 mg PO DAILY Qty: 3 0RF Continued ipratropium-albuterol 0.5 mg-3 mg(2.5 mg base)/3 mL solution for nebulization 3 ml inhalation Q4H PRN (Reason: for dyspnea) Qty: 180 11RF valsartan 80 mg tablet 80 mg PO DAILY Qty: 30 2RF verapamil 120 mg tablet 120 mg PO BID@499,1999 lorazepam 0.5 mg tablet 1 mg PO DAILY PRN (Reason: MODERATE Anxiety) Trelegy Ellipta 200-62.5-25 mcg blister with device 1 ea INHALATION DAILY baclofen 20 mg tablet 20 mg PO TID@0500,1199,1999 ciclopirox 8 % solution 1 appl topical DAILY oxycodone 5 mg tablet 5 mg PO BID PRN (Reason: Severe Pain (Scale Score 7-10)) aripiprazole 2 mg Tablet 2 mg PO DAILY atorvastatin 80 mg tablet 80 mg PO DAILY@1999 cobxsjxqil-jsninbxnzuazk-xsif 50-325-40 mg tablet 1 tab PO DAILY MRX1 PRN (Reason: Migraine Headache) hyoscyamine sulfate 0.125 mg tablet 0.25 mg PO Q6H PRN (Reason: Abdominal Discomfort) gabapentin 300 mg capsule 1,200 mg PO TID@0500,1199,1999 duloxetine 60 mg capsule,delayed release(DR/EC) 60 mg PO BID@050,1999 oxcarbazepine 600 mg tablet 300 mg PO BID@050,1999 (DME) nebulizer and compressor Device See Rx Instructions .Route Qty: 1 0RF Rx Instructions: As directed albuterol sulfate 90 mcg/actuation HFA aerosol inhaler 2 puff inhalation Q4H PRN (Reason: Shortness Of Breath Or Wheezing) aspirin 81 mg tablet,delayed release (DR/EC) 81 mg PO DAILY@1999 calcium carbonate-vitamin D3 600 mg-5 mcg (200 unit) tablet 1 tab PO DAILY@1999 roflumilast [Daliresp] 500 mcg tablet 500 mcg PO DAILY 30 Days Qty: 30 11RF prazosin 2 mg capsule 2 mg PO DAILY@1999 (DME) Oxygen Home Use Kit See Rx Instructions .Route Rx Instructions: As directed Discharge Orders: Discharge Order (Routine); Ordered 10/31/24 Ordered By: Carlita Carlisle Diet: Advance to usual diet Activity on Discharge: As tolerated Stand Alone Forms: Patient Portal Discharge page Print Language: [place] Care Plan Goals: Prednisone tapering dose Azithromycin and Lasix for 3 more days Cough medicaitons as needed Use Nebulizer 3-4 times for the next 3 days then as needed Remove rugs and try to get air purifier Follow with [facility] Pulmonology as needed Health Concerns: COPD exacerbation Plan of Treatment: Steroids Nebulizers Assessment: as above
--- NOTE | 2024-10-31 12:40 | W.MHC.F2F ---
Service Date Service Date: 10/31/24 Encounter Date of encounter: 10/31/24 Reasons for Services Signs and symptoms assessed: Chronic O2 CPAP COPD management Reason for assisted: medication management and teach disease management Homebound: Leaving the home is medically contraindicated at this time without the asist of a device and/or another person due th the listed conditions above and below. Reason homebound: unable to drive Certification: Based on the above findings, I certify that this patient is confined to the home and needs intermittent assisted care, physical therapy and/or speech therapy, or continues to need occupational therapy. The patient is under my care, and I have initiated the establishment of the plan of care. The patient will be followed by a physician who will periodically review the plan of care. Time Spent With Patient Time: Total time managing care of this patient today ____ minutes.
[2024-10-31 13:44] VITALS: BP 142/66; PULSE 99; RESP 20; TEMP 36; O2SAT 91
--- NOTE | 2024-10-31 14:36 | MHC.CM.PN ---
ARIELLA 10/29/24 [facility] Transportation home was arranged by the patient.
== END 2024-10-31 12:45 | disposition home health service (06) ==
LOC: HO.ED 04:07 → HO.EDOVER 04:14 → HO.S3 12:29
PROVIDERS: Nurse Practitioner Family; Physician Assistant; Admitting Provider Student in an Organized Health Care Education/Training Program; Emergency Provider Emergency Medicine; PCP Physician Assistant Surgical; Visit Provider Student in an Organized Health Care Education/Training Program
DX: J44.1 Chronic obstructive pulmonary disease with (acute) exacerbation (principal); J96.21 Acute and chronic respiratory failure with hypoxia; R05.9 Cough, unspecified; G50.0 Trigeminal neuralgia; I35.0 Nonrheumatic aortic (valve) stenosis; F39 Unspecified mood [affective] disorder; I10 Essential (primary) hypertension; E78.2 Mixed hyperlipidemia; Z86.73 Personal history of transient ischemic attack (TIA), and cerebral infarction without residual deficits; Z79.899 Other long term (current) drug therapy; Z03.818 Encounter for observation for suspected exposure to other biological agents ruled out
CPT/HCPCS: 0241U; 36415; 71250; 80048; 82803; 83735; 83880; 84443; 84484; 85025; 93005; 94640; 96365; 96366; 96367; 96372; 96375; 96376; 99221; 99285; J0456; J0696; J1650; J1938; J2919; J3475

== ENCOUNTER → 2024-10-29 03:07 | Outpatient (BNV) | payer BC, SELFPAY | PROVIDERS: Admitting Provider Student in an Organized Health Care Education/Training Program; Emergency Provider Emergency Medicine; Visit Provider Internal Medicine Cardiovascular Disease | DX: R00.0 Tachycardia, unspecified (principal) | CPT/HCPCS: 93010 ==

== ENCOUNTER 2024-10-29 04:00 | Outpatient (BNV) | payer BC, SELFPAY | END 2024-10-29 05:02 | PROVIDERS: Admitting Provider Student in an Organized Health Care Education/Training Program; Emergency Provider Emergency Medicine; Visit Provider Radiology Vascular & Interventional Radiology | DX: R06.00 Dyspnea, unspecified (principal) | CPT/HCPCS: 71250 ==

== ENCOUNTER → 2024-10-29 04:00 | Outpatient (BNV) | payer BC, SELFPAY | PROVIDERS: Admitting Provider Student in an Organized Health Care Education/Training Program; Emergency Provider Emergency Medicine; Visit Provider Nurse Practitioner Family | DX: J44.1 Chronic obstructive pulmonary disease with (acute) exacerbation (principal) | CPT/HCPCS: 99499 ==

== ENCOUNTER 2024-11-10 09:51 | Outpatient (REF) | payer BC, SELFPAY ==
--- NOTE | ~2024-11-10 | MR_ITS ---
EXAMINATION: MR ANGIOGRAPHY BRAIN WITHOUT CONTRAST CLINICAL INFORMATION: Cerebral aneurysm; headaches, chronic. Trigeminal neuralgia. Occipital neuralgia. COMPARISON: 12/21/2022, 09/02/2018, and exams dating back to 07/28/2016. TECHNIQUE: 3-D [id number] imaging of the major intracranial vasculature was performed using standard techniques on a 1.5 Fransisca Siemens unit. No gadolinium was administered. FINDINGS: Normal flow related enhancement in the anterior and posterior intracranial circulation. There is no evidence of high-grade stenosis, flow gap, or occlusion. The right posterior communicating artery is present and patent. The left posterior communicating artery is small but patent. Vertebral arteries are codominant. The previously described 1 mm anteriorly projecting vascular protrusion arising from the anterior communicating artery is not definitely identified on the current study. Otherwise, no additional aneurysm is detected. No evidence of AVM. Ventricles are again to be mildly prominent, out of proportion to sulcal prominence, a finding likely representing central volume loss. This is unchanged from prior exams. There is a stable old lacunar type infarct in the right mid tony radiata abutting the right lateral ventricular body. There are partially imaged postoperative changes to the left parotid gland. MR/MR angio head wo con IMPRESSION: 1. Normal cerebral MR angiogram. No definite aneurysm seen on today's examination. 2. Ancillary findings as discussed. Electronically signed by: Emmett Triplett MD 11/10/2024 03:45 PM EDT
== END 2024-11-10 09:52 | disposition home or self-care (01) ==
LOC: HO.MRI 09:51
PROVIDERS: PCP Physician Assistant Surgical; Visit Provider Physician Assistant Surgical
DX: I67.1 Cerebral aneurysm, nonruptured (principal)
CPT/HCPCS: 70544

== ENCOUNTER → 2024-11-10 10:30 | Outpatient (BNV) | payer BC, SELFPAY | PROVIDERS: PCP Physician Assistant Surgical; Visit Provider Radiology Diagnostic Radiology | DX: G44.229 Chronic tension-type headache, not intractable (principal) | CPT/HCPCS: 70544 ==

== ENCOUNTER → 2024-11-18 02:18 | Outpatient (BNV) | payer BC, SELFPAY | PROVIDERS: Emergency Provider Internal Medicine; PCP Internal Medicine; Visit Provider Radiology Diagnostic Radiology | DX: R06.02 Shortness of breath (principal) | CPT/HCPCS: 71045 ==

== ENCOUNTER 2024-11-18 02:44 | Observation (INO) | payer BC, SELFPAY ==
[2024-11-18] VITALS (13 sets, daily range): BP systolic 120–185; BP diastolic 55–85; PULSE 90–121; RESP 16–28; TEMP 36.6–37.3; O2SAT 94–98; BMI 38.8
--- NOTE | 2024-11-18 | ECG_ITS ---
Test Reason : DYSPNEA Blood Pressure : */* mmHG Vent. Rate : 122 BPM Atrial Rate : 122 BPM P-R Int : 126 ms QRS Dur : 88 ms QT Int : 326 ms P-R-T Axes : 68 65 -2 degrees QTcB Int : 464 ms Sinus tachycardia Nonspecific T wave abnormality Abnormal ECG When compared with ECG of 29-Oct-2024 03:23, No significant change was found Referred By: Generic ED Physician Electronically Signed By: ANGEL HARRISON
--- NOTE | ~2024-11-18 | XR_ITS ---
CLINICAL HISTORY: SOB 1 view chest x-ray. Comparison: CT/SR - CT CHEST WO IV CON - 10/29/24 05:09 EDT CR - XR CHEST 1V - 10/28/24 03:28 EDT Findings: Normal lung volumes. Lungs are clear. No pneumothorax or pleural effusion. Heart size normal. No passive venous congestion. No midline shift or tracheal deviation. No acute fracture. Impression: 1. No acute cardiopulmonary disease. This document has been electronically signed by: Song Dimas MD on 11/18/2024 04:58:00
[2024-11-18] MEDS: Albuterol Sulfate 5 MG, Albuterol/Iprat 2.5/0.5MG 3 ML 3 ML INHALE (02:58)
[2024-11-18 03:50] LABS: MANUAL DIFF FLAG NO
[2024-11-18 03:51] LABS: Venous Blood Gas Refer to POC result
[2024-11-18 03:51] LABS: Basophils Percent Auto 0.2 % (0-2); Eosinophils Absolute Auto 0.4 X10*3/uL (0.0-0.4); Eosinophils Percent Auto 4.3 % (0-4); Hematocrit 36.5 % (37.0-47.0); Imm Gran Abs Auto 0.03 X10*3/uL (0.00-0.03); Imm Gran Pct Auto 0.3 % (0.0-0.4); Lymphocytes Absolute Auto 0.8 X10*3/uL (1.2-4.9); Lymphocytes Percent Auto 8.2 % (20-40); Mean Corpuscular HGB Conc 32.9 g/dl (31.0-35.0); Mean Corpuscular Hemoglobin 31.8 pg (27.0-33.0); Mean Corpuscular Volume 96.8 fL (80.0-98.0); Mean Platelet Volume 8.9 fL (9.4-12.3); Monocytes Absolute Auto 0.5 X10*3/uL (0.1-1.2); Monocytes Percent Auto 5.1 % (2-11); Neutrophils Absolute Auto 7.7 x10*3/uL (2.0-8.3); Neutrophils Percent Auto 81.9 % (45-73); Platelet Count 272 X10*3/uL (160-400); Red Blood Count 3.77 X10*6/uL (4.20-5.50); Red Cell Distribution Width 13.9 % (11.0-16.0); White Blood Count 9.4 X10*3/uL (4.8-10.8)
[2024-11-18 03:55] LABS: VBG Base Excess 7.5 mmol/L; VBG HCO3 32 mmol/L (22-26); VBG pCO2 45 mmHg; VBG pH 7.46 (7.32-7.43); VBG pO2 134 mmHg
[2024-11-18 04:10] LABS: Alanine Aminotransferase 17 U/L (0-31); Albumin Level 3.9 g/dL (3.5-5.0); Anion Gap 15 (12-20); Aspartate Amino Transferase 27 U/L (5-31); Bilirubin Total 0.2 mg/dL (0.0-1.0); Blood Urea Nitrogen 10 mg/dL (9-16); Calcium 9.4 mg/dL (8.4-10.2); Carbon Dioxide 28 mmol/L (22-29); Chloride 106 mmol/L (96-108); Creatinine Clr Calc Pharmacy 84.2; Estimated Glomerular Filt Rate > 60; Glucose Random 220 mg/dL (60-115); Magnesium 1.9 mg/dL (1.6-2.6); Potassium 3.8 mmol/L (3.3-5.1); Sodium 145 mmol/L (135-145)
[2024-11-18 04:11] LABS: Alkaline Phosphatase 60 U/L (39-117)
[2024-11-18 04:29] LABS: Influenza A PCR NEGATIVE (Negative); Influenza B PCR NEGATIVE (Negative); Resp Syncy Virus RNA Qual PCR NEGATIVE (Negative); SARS COV2 PCR INHOUSE NEGATIVE (Negative)
--- NOTE | 2024-11-18 05:00 | ED_ITS ---
HPI - SOB/Dyspnea General Chief Complaint: Dyspnea Stated Complaint: COPD Time Seen by Provider: 11/18/24 04:59 Source: patient Mode of arrival: EMS Limitations: no limitations History of Present Illness ED Provider: HPI Narrative: Patient's history of COPD , tobacco dependency, hypotension, panic disorder, JUANITO on home oxygen 2-3 L comes here for increased shortness a breath and cough since yesterday when she was walking outside in humidified hot weather with her dog cough is mostly dry patient has tried DuoNeb treatments at home without much relief EMS gave her Solu-Medrol and DuoNeb treatment patient also received 1 DuoNeb treatment in the ER feeling much better at this time saturating 93% at 2 L oxygen nasal cannula Related Data Home Medications ?Medication ?Instructions ?Recorded ?Confirmed atorvastatin 80 mg tablet 80 mg PO DAILY@199903/04/23 10/29/24 umfgglrehy-cixggaymrwavk-nitzokht 1 tab PO DAILY MRX1 PRN Migraine 03/04/23 10/29/24 50 mg-325 mg-40 mg tablet Headache duloxetine 60 mg capsule,delayed 60 mg PO BID@050,199903/04/23 10/29/24 release gabapentin 300 mg capsule 1,200 mg PO TID@0500,1200,199903/04/23 10/29/24 hyoscyamine sulfate 0.125 mg tablet 0.25 mg PO Q6H PRN Abdominal 03/04/23 10/29/24 Discomfort Oxygen Home Use 04/16/23 10/29/24 prazosin 2 mg capsule 2 mg PO DAILY@199904/16/23 10/29/24 albuterol sulfate 90 mcg/actuation 2 puff inhalation Q4H PRN 01/31/24 10/29/24 aerosol inhaler Shortness Of Breath Or Wheezing aspirin 81 mg tablet,delayed 81 mg PO DAILY@199905/22/24 10/29/24 release calcium 600 mg (as 1 tab PO DAILY@199906/20/24 10/29/24 carbonate)-vitamin D3 5 mcg (200 unit) tablet verapamil 120 mg tablet 120 mg PO BID@0500,199907/02/24 10/29/24 lorazepam 0.5 mg tablet 1 mg PO DAILY PRN MODERATE Anxiety 08/03/24 10/29/24 fluticasone fur. 200 mcg-umeclid 1 ea inhalation DAILY 08/22/24 10/29/24 62.5 mcg-vilant 25 mcg inhalat.powder (Trelegy Ellipta) oxcarbazepine 600 mg tablet 300 mg PO BID@050,199910/06/24 10/29/24 aripiprazole 2 mg tablet 2 mg PO DAILY 10/29/24 10/29/24 baclofen 20 mg tablet 20 mg PO TID@0500,1200,199910/29/24 10/29/24 ciclopirox 8 % topical solution 1 appl topical DAILY 10/29/24 10/29/24 oxycodone 5 mg tablet 5 mg PO BID PRN Severe Pain (Scale 10/29/24 10/29/24 Score 7-10) Previous Rx's ?Medication ?Instructions ?Recorded nebulizer and compressor #1 ea 12/16/23 ipratropium 0.5 mg-albuterol 3 mg 3 ml inhalation Q4H PRN for 03/02/24 (2.5 mg base)/3 mL nebulization dyspnea #180 mL soln valsartan 80 mg tablet 80 mg PO DAILY #30 tabs 10/04/24 roflumilast 500 mcg tablet 500 mcg PO DAILY 30 days #30 tabs 10/06/24 (Daliresp) azithromycin 250 mg tablet 250 mg PO Q24H #3 tabs 10/31/24 benzonatate 100 mg capsule 100 mg PO TID PRN Cough #30 caps 10/31/24 codeine 10 mg-guaifenesin 100 mg/5 10 ml PO Q6H PRN Cough #473 mL 10/31/24 mL oral liquid dextromethorphan-guaifenesin 30 1 tab PO BID #20 tabs 10/31/24 mg-600 mg tablet extended giicavd49 hr (Mucus DM) furosemide 20 mg tablet 20 mg PO DAILY #3 tabs 10/31/24 prednisone 10 mg tablet See Taper PO DIRECTED #30 tabs 10/31/24 cefuroxime axetil 500 mg tablet 500 mg PO BID 7 days #14 tabs 11/18/24 prednisone 20 mg tablet 40 mg (2 x 20 mg) PO DAILY #10 tabs 11/18/24 Allergies Allergy/AdvReac Type Severity Reaction Status Date / Time Iodinated Contrast Media Allergy Intermediate HIVES Verified 11/18/24 03:11 [IV CONTRAST] latex [LATEX] Allergy Unknown RASH Verified 11/18/24 03:11 adhesive tape Allergy Rash Verified 11/18/24 03:11 morphine [MORPHINE] AdvReac Unknown VOMITING Verified 11/18/24 03:11 Review of Systems 2 Review of Systems: Yes all other systems are reviewed and are negative [facility] Past Medical History Medical History Panic disorder Hypertension Chronic hypercapnic respiratory failure Aortic stenosis Obesity (BMI 30-39.9) Asthma Acute exacerbation of chronic obstructive pulmonary disease Chronic lung disease Hypogammaglobulinemia Smoker JUANITO (obstructive sleep apnea) Allergies Elevated troponin COPD (chronic obstructive pulmonary disease) Trigeminal neuralgia Pulmonary nodules Mixed hyperlipidemia Peripheral neuropathy Tobacco use disorder Mood disorder Surgical History History of esophagogastroduodenoscopy (EGD) History of colonoscopy History of lumbar discectomy History of tubal ligation History of excision of mass History of shoulder surgery Social History Social History Household Members: Spouse Housing: House Do you presently have visiting nurse or other home services: No Alcohol intake: current Alcohol intake frequency: holidays/special occasions only Alcohol type: hard liquor Comment: pt steady on feet, refusing all alarms Patient Tobacco Use Status: Former Tobacco user Tobacco use type: Cigarette Cigarette Packs Per Day: 4 Cigarettes Per Day: 80.0 Years Smoked: 40 e-Cigarette/Vaping Use: Currently Using Second Hand Smoke Exposure: No Substance Use Type: Marijuana Advance Directives: Yes Advance Directives on File: Yes Advance Directives Date on File: 03/09/23 service: No Physical Exam 2 Vital Signs: Vital Signs: Last Vital Signs Temp 98.1 F 11/18/24 05:35 Pulse 95 11/18/24 06:00 Resp 20 11/18/24 06:00 BP 123/55 L 11/18/24 05:35 Pulse Ox 95 11/18/24 05:35 O2 Del Method Nasal Cannula 11/18/24 05:35 O2 Flow Rate 2 11/18/24 05:35 BMI result Body Mass Index 38.8 Appearance: Alert. Oriented X3. No acute distress. Eyes: PERRLA, No Nystagmus ENT: Pharynx normal. Oral Mucosa moist Neck: Normal inspection. Neck supple. CVS: Normal heart rate and rhythm. Pulses normal. Respiratory: No respiratory distress. Equal air entry bilateral, bilateral wheezing and prolonged expiration occasional crackles Abdomen: Soft and nontender. Bowel sounds are present, no mass palpable, no CVA tenderness Skin: Skin warm and dry. Normal skin color. Normal skin turgor. Extremities: No lower extremity edema. No calf tenderness Neuro: Oriented X 3. No motor deficit. No sensory deficit.No cerebellar signs , cranial nerves II-XII intact Medications Administered Discontinued Medications Generic Name Dose Route Start Last Admin Trade Name Freq PRN Reason Stop Dose Admin Albuterol Sulfate 2.5 mg/ 5 mg 11/18/24 05:20 11/18/24 06:00 Albuterol Sulfate 2.5 mg INHALE 11/18/24 05:21 5 mg ONCE ONE Administration Albuterol Sulfate 5 mg/ 0 mg 11/18/24 02:55 11/18/24 02:58 Albuterol/Ipratropium 3 ml INHALE 11/18/24 02:56 1 each ONCE ONE Administration Guaifenesin/Codeine Phosphate 10 ml 11/18/24 05:22 11/18/24 05:31 Guaifen/Codeine Sf 200/20/10ml 10 Ml Liquid PO 11/18/24 05:23 10 ml ONCE ONE Administration Sodium Chloride 1,000 mls @ 999 mls/hr 11/18/24 06:28 11/18/24 07:01 Ns IV 11/18/24 07:28 999 mls/hr .Q1H1M ONE Administration Magnesium Sulfate 2 gm in 50 mls @ 150 mls/hr 11/18/24 06:28 11/18/24 07:01 Magnesium Sulfate/H2o IV 11/18/24 06:47 Infused ONCE ONE Infusion Medical Decision Making Medical Decision Making MDM Narrative: Patient has chronic lung disease been to the hospital frequently last admission was 10/31/2024 ex-smoker comes here for increased shortness a breath since yesterday patient is feeling much better better after nebulizing treatment received magnesium and Solu-Medrol patient has had MRI done on which did not show any aneurysm will discharge patient home once stable Differential Diagnosis Differential Diagnoses: The differential diagnosis associated with the presentation includes Admission/Observation Consideration of admission/observation: Escalation of care including admission/observation considered Lab Data MDM Lab Attestation statement: I reviewed the patient's lab results. 11/18/24 03:44 11/18/24 03:44 Labs: Lab Results 11/18/24 11/18/24 Range/Units 03:44 03:50 WBC 9.4 (4.8-10.8) X10*3/uL RBC 3.77 L (4.20-5.50) X10*6/uL Hgb 12.0 (12.0-16.0) g/dl Hct 36.5 L (37.0-47.0) % MCV 96.8 (80.0-98.0) fL MCH 31.8 (27.0-33.0) pg MCHC 32.9 (31.0-35.0) g/dl RDW 13.9 (11.0-16.0) % Plt Count 272 D (160-400) X10*3/uL MPV 8.9 L (9.4-12.3) fL Immature Gran % (Auto) 0.3 (0.0-0.4) % Neut % (Auto) 81.9 H (45-73) % Lymph % (Auto) 8.2 L (20-40) % [place] % (Auto) 5.1 (2-11) % Eos % (Auto) 4.3 H (0-4) % Baso % (Auto) 0.2 (0-2) % Lymph # (Auto) 0.8 L (1.2-4.9) X10*3/uL [place] # (Auto) 0.5 (0.1-1.2) X10*3/uL Eos # (Auto) 0.4 (0.0-0.4) X10*3/uL Baso # (Auto) 0.0 (0.0-0.2) X10*3/uL Abs Immat Gran (auto) 0.03 (0.00-0.03) X10*3/uL Absolute Neuts (auto) 7.7 (2.0-8.3) x10*3/uL Absolute Nucleated RBC 0.000 (0.0-0.012) X10*3/uL Nucleated RBC % (auto) 0.0 (0.0-0.2) /100WBC VBG pH 7.46 H (7.32-7.43) VBG pCO2 45 mmHg VBG pO2 134 mmHg VBG HCO3 32 H (22-26) mmol/L VBG O2 Saturation 100.0 % VBG Base Excess 7.5 mmol/L Sodium 145 (135-145) mmol/L Potassium 3.8 (3.3-5.1) mmol/L Chloride 106 (96-108) mmol/L Carbon Dioxide 28 (22-29) mmol/L Anion Gap 15 (12-20) BUN 10 (9-16) mg/dL Creatinine 0.73 (0.5-1.4) mg/dL Estim Creat Clear Calc 84.2 Estimated GFR > 60 Random Glucose 220 H (60-115) mg/dL Calcium 9.4 D (8.4-10.2) mg/dL Magnesium 1.9 (1.6-2.6) mg/dL Total Bilirubin 0.2 (0.0-1.0) mg/dL AST 27 (5-31) U/L ALT 17 (0-31) U/L Alkaline Phosphatase 60 (39-117) U/L B-Natriuretic Peptide 27 (<100) pg/mL Total Protein 7.0 (6.5-8.0) g/dL Albumin 3.9 (3.5-5.0) g/dL Influenza Type A (PCR) NEGATIVE (Negative) Influenza Type B (PCR) NEGATIVE (Negative) RSV RNA Qual (PCR) NEGATIVE (Negative) SARS-CoV-2 RNA (RT-PCR) NEGATIVE (Negative) Independent Interpretation I performed an independent interpretation of an: EKG Interpretation: Sinus tachycardia with heart rate 122 beats per minute normal interval normal axis nonspecific T wave changes no acute ischemia Radiology Impression Discussion of test interpretation with radiology: I have reviewed the radiologist's reading. Discharge Plan Discharge Clinical Impression: Acute exacerbation of chronic obstructive pulmonary disease Patient Disposition: Home, Self-Care Instructions: COPD (Chronic Obstructive Pulmonary Disease) (ED) Additional Instructions: Continue to use nebulizer treatments at home Prednisone as prescribed Antibiotics as prescribed Follow up with your PCP/beam builder if not better Prescriptions: New cefuroxime axetil 500 mg tablet 500 mg PO BID 7 Days Qty: 14 0RF prednisone 20 mg tablet 40 mg PO DAILY Qty: 10 0RF No Action ipratropium-albuterol 0.5 mg-3 mg(2.5 mg base)/3 mL solution for nebulization 3 ml inhalation Q4H PRN (Reason: for dyspnea) Qty: 180 11RF valsartan 80 mg tablet 80 mg PO DAILY Qty: 30 2RF verapamil 120 mg tablet 120 mg PO BID@499,1999 lorazepam 0.5 mg tablet 1 mg PO DAILY PRN (Reason: MODERATE Anxiety) Trelegy Ellipta 200-62.5-25 mcg blister with device 1 ea INHALATION DAILY baclofen 20 mg tablet 20 mg PO TID@499,1199,1999 ciclopirox 8 % solution 1 appl topical DAILY oxycodone 5 mg tablet 5 mg PO BID PRN (Reason: Severe Pain (Scale Score 7-10)) aripiprazole 2 mg Tablet 2 mg PO DAILY azithromycin 250 mg Tablet 250 mg PO Q24H Qty: 3 0RF benzonatate 100 mg Capsule 100 mg PO TID PRN (Reason: Cough) Qty: 30 0RF codeine-guaifenesin 10-100 mg/5 mL Liquid 10 ml PO Q6H PRN (Reason: Cough) Qty: 473 0RF Mucus DM 30-600 mg Tablet Extended Release 12 Hr 1 tab PO BID Qty: 20 0RF prednisone 10 mg tablet See Taper PO DIRECTED Qty: 30 0RF Taper: Prednisone 40 mg daily for 3 Days and 0 Hour 30 mg daily for 3 Days and 0 Hour 20 mg daily for 3 Days and 0 Hour 10 mg daily for 3 Days and 0 Hour Rx Instructions: see taper instructions furosemide 20 mg tablet 20 mg PO DAILY Qty: 3 0RF atorvastatin 80 mg tablet 80 mg PO DAILY@1999 uxogimgxzj-anqvswbfxnajm-cdea 50-325-40 mg tablet 1 tab PO DAILY MRX1 PRN (Reason: Migraine Headache) hyoscyamine sulfate 0.125 mg tablet 0.25 mg PO Q6H PRN (Reason: Abdominal Discomfort) gabapentin 300 mg capsule 1,200 mg PO TID@499,1199,1999 duloxetine 60 mg capsule,delayed release(DR/EC) 60 mg PO BID@499,1999 oxcarbazepine 600 mg tablet 300 mg PO BID@499,1999 (DME) nebulizer and compressor Device See Rx Instructions .Route Qty: 1 0RF Rx Instructions: As directed albuterol sulfate 90 mcg/actuation HFA aerosol inhaler 2 puff inhalation Q4H PRN (Reason: Shortness Of Breath Or Wheezing) aspirin 81 mg tablet,delayed release (DR/EC) 81 mg PO DAILY@1999 calcium carbonate-vitamin D3 600 mg-5 mcg (200 unit) tablet 1 tab PO DAILY@1999 roflumilast [Daliresp] 500 mcg tablet 500 mcg PO DAILY 30 Days Qty: 30 11RF prazosin 2 mg capsule 2 mg PO DAILY@1999 (DME) Oxygen Home Use Kit See Rx Instructions .Route Rx Instructions: As directed Print Language: Belarusian
[2024-11-18] MEDS: guaiFEN/Codeine SF 200/20/10ML 10 ML LIQUID PO (05:31)
[2024-11-18 05:42] LABS: B Type Natriuretic Peptide 27 pg/mL (<100)
[2024-11-18] MEDS: Albuterol Sulfate 2.5 MG, Albuterol Sulfate (0.083%) 2.5 MG 5 MG INHALE (06:00)
[2024-11-18] MEDS: Magnesium Sulfate/H2O 2 GM/50 ML PIGGYBACK IV (06:37)
[2024-11-18] MEDS: 0.9 % Sodium Chloride 1,000 ML 999 ML IV (07:01)
[2024-11-18] MEDS: cefuroxime axetiL 500 MG TABLET PO (08:18)
--- NOTE | 2024-11-18 09:31 | PC.NURSE ---
Upon discharge, at bedside suggesting Pt gets admitted based on previous provider suggestions. Provider Donna Burns made aware.
--- NOTE | 2024-11-18 10:13 | PC.NURSE ---
ORESTES Ventura at bedside speaking with patient and family member. Patient assisted to bathroom and back (3L oxygen via nasal cannula/portable O2 tank). Ambulates with slow steady gait. Pt was able to talk during walk from ED 20 to bathroom next door with minimal dyspnea/exertion/tachypnea. However, upon return from the bathroom a few minutes later, patient was visibly noted to have increased work of breathing. Pulse ox readings remained within normal parameters (95-97% on 2L via nasal cannula, baseline O2 dependent). ORESTES Burns to bedside during this interaction. Family voicing concerns about safe discharge home. All lab & clinical findings are within normal limits for this patient, but ORESTES Burns is awaiting hospitalist evaluation to determine disposition. Patient remains under this RN's care at this time.
--- NOTE | 2024-11-18 11:05 | PC.NURSE ---
Patient used call dumont, requesting to go to the bathroom. Connected to oxygen tank, and ambulated to bathroom. Upon standing during this episode, patient speaking in clear full sentences reporting trouble breathing. ORESTES Pearce to bedside for evaluation during this episode. Patient noted to have clear lung sounds with forced expiratory breathing noted. Pulse oximeter readings remained 95% on 2LPM via nasal cannula, which patient uses at baseline. Able to ambulate with slow steady gait to bathroom & back. Patient became anxious and was verbally repeatedly stating see? this is not normal! I'm sorry that I lied before, but this isn't normal for me! I need a rescue inhaler right now! Patient returned to her bed, where vitals remained stable. RT (Nasreen) came to bedside and spoke with the patient, whose breathing returned to baseline. Color remained normal. Patient is refusing discharge and ORESTES Pearce agreed to admit for observation & re-evaluation tonight. Plan to move to ED Overflow shortly.
[2024-11-18] MEDS: levalbuterol HCL 3.75 MG, Ipratropium Bromide 0.5 MG INHALE (11:20)
--- NOTE | 2024-11-18 11:28 | PM.IMHP ---
History of Present Illness Date of Service: 11/18/24 Attending physician on admission: [facility] Chief Complaint: SOB Pt is a 59-year-old female with a PMH significant for?chronic hypoxic respiratory failure due to COPD on 1L at night, 2L at rest, and 3L with exertion, HTN, HLD, hx of CVA, MVR, trigeminal neuralgia, occipital neuralgia, JUANITO unable to tolerate CPAP due to trigeminal neuralgia, and anxiety/panic disorder who presents to the ED with?SOB, PRECIADO, and nonproductive cough since yesterday after taking her dog outside for a walk. Pt reports both seasonal allergens and hot humid weather exacerbate her COPD. No fever or chills. Denies chest pain/pressure, palpitations. No nausea, vomiting, abdominal pain. Initial workup in the ED was unremarkable without significant CBC or BMP abnormalities. Pt was not hypoxic either at rest or with ambulation, and lungs were CTA. CXR negative for acute process. VBG overall reassuring without CO2 retention. Pt was initially discharged from the ED, though when pt went ambulated to the bathroom became severely dyspneic and had to rest multiple times in a span of only 20 steps or so. Pt was brought back to her room where she was again auscultated and lungs remained CTA, though pt was noted to have oropharyngeal wheezing and speaking in 2-3 word sentences before having to take a breath. O2 sat during ambulation 93-94% on home 2L O2. Pt will be admitted to the hospital under observation for acute on chronic COPD exacerbation not sufficiently alleviated by home inhalers or ED treatments. Review of Systems Review of Systems: Negative except for that which is stated in the HPI. [facility] Medical History Panic disorder Hypertension Chronic hypercapnic respiratory failure Aortic stenosis Obesity (BMI 30-39.9) Asthma Acute exacerbation of chronic obstructive pulmonary disease Chronic lung disease Hypogammaglobulinemia Smoker JUANITO (obstructive sleep apnea) Allergies Elevated troponin COPD (chronic obstructive pulmonary disease) Trigeminal neuralgia Pulmonary nodules Mixed hyperlipidemia Peripheral neuropathy Tobacco use disorder Mood disorder Surgical History History of esophagogastroduodenoscopy (EGD) History of colonoscopy History of lumbar discectomy History of tubal ligation History of excision of mass History of shoulder surgery Social History Household Members: Spouse Housing: House Do you presently have visiting nurse or other home services: No Alcohol intake: never Comment: pt steady on feet, refusing all alarms Patient Tobacco Use Status: Former Tobacco user Tobacco use type: Cigarette Cigarette Packs Per Day: 4 Cigarettes Per Day: 80.0 Years Smoked: 40 Smoked in Last 30 Days: No e-Cigarette/Vaping Use: Currently Using Second Hand Smoke Exposure: No Use of substances other than those prescribed or required for medical reasons: No Substance Use Type: Marijuana Advance Directives: Yes Advance Directives on File: Yes Advance Directives Date on File: 03/09/23 Patient : No service: No Meds Allergies Allergy/AdvReac Type Severity Reaction Status Date / Time Iodinated Contrast Media Allergy Intermediate HIVES Verified 11/18/24 03:11 [IV CONTRAST] latex [LATEX] Allergy Unknown RASH Verified 11/18/24 03:11 adhesive tape Allergy Rash Verified 11/18/24 03:11 morphine [MORPHINE] AdvReac Unknown VOMITING Verified 11/18/24 03:11 Active Medications: Current Medications Acetaminophen (Acetaminophen 325 Mg Tablet) 650 mg PO Q6H PRN PRN Reason: Pain, Mild 1-3,fever,headache Albuterol/Ipratropium (Albuterol/Iprat 2.5/0.5mg 3 Ml Ampul.Neb) 3 ml INHALE RQ4H WHILE AWAKE [place] Calcium Carbonate (Calcium Carbonate 750 Mg Tab.Chew) 750 mg PO Q4H PRN PRN Reason: Heartburn Magnesium Hydroxide (Milk Of Magnesia 30 Ml Oral.Susp) 30 ml PO DAILY PRN PRN Reason: Constipation Melatonin (Melatonin 3 Mg Tablet) 6 mg PO BEDTIME PRN PRN Reason: Insomnia Sodium Chloride (0.9 % Sodium Chloride Flush 3 Ml Syringe) 3 ml IVFLUSH QSHIFT [place] Home Medications ?Medication ?Instructions ?Recorded ?Confirmed ?Last Taken ?Type atorvastatin 80 mg tablet 80 mg PO DAILY@199903/04/23 11/18/24 10/28/24 History lwcnpwwzwd-lqpsnmjtapwhx-irrkwfsg 1 tab PO DAILY MRX1 PRN Migraine 03/04/23 11/18/24 05/21/24 20:00 History 50 mg-325 mg-40 mg tablet Headache duloxetine 60 mg capsule,delayed 60 mg PO BID@0500,199903/04/23 11/18/24 10/28/24 History release gabapentin 300 mg capsule 1,200 mg PO TID@0500,1200,199903/04/23 11/18/24 10/28/24 History hyoscyamine sulfate 0.125 mg tablet 0.25 mg PO Q6H PRN Abdominal 03/04/23 11/18/24 05/21/24 20:00 History Discomfort Oxygen Home Use 04/16/23 10/29/24 10/28/24 History prazosin 2 mg capsule 2 mg PO DAILY@199904/16/23 11/18/24 10/28/24 History albuterol sulfate 90 mcg/actuation 2 puff inhalation Q4H PRN 01/31/24 11/18/24 05/21/24 20:00 History aerosol inhaler Shortness Of Breath Or Wheezing aspirin 81 mg tablet,delayed 81 mg PO DAILY@199905/22/24 11/18/24 10/28/24 History release calcium 600 mg (as 1 tab PO DAILY@199906/20/24 11/18/24 10/28/24 History carbonate)-vitamin D3 5 mcg (200 unit) tablet verapamil 120 mg tablet 120 mg PO BID@050,199907/02/24 11/18/24 10/28/24 History lorazepam 0.5 mg tablet 1 mg PO DAILY PRN MODERATE Anxiety 08/03/24 11/18/24 10/28/24 History fluticasone fur. 200 mcg-umeclid 1 ea inhalation DAILY 08/22/24 11/18/24 10/28/24 History 62.5 mcg-vilant 25 mcg inhalat.powder (Trelegy Ellipta) oxcarbazepine 600 mg tablet 300 mg PO BID@0500,199910/06/24 11/18/24 10/28/24 History aripiprazole 2 mg tablet 2 mg PO DAILY 10/29/24 11/18/24 10/28/24 History baclofen 20 mg tablet 20 mg PO TID@0500,1200,199910/29/24 11/18/24 10/28/24 History ciclopirox 8 % topical solution 1 appl topical DAILY 10/29/24 11/18/24 10/28/24 History oxycodone 5 mg tablet 5 mg PO BID PRN Severe Pain (Scale 10/29/24 11/18/24 Unknown History Score 7-10) Physical Exam Vital Signs and Narrative: Vital Signs: Last Vital Signs Temp 98.3 F 11/18/24 11:21 Pulse 93 11/18/24 11:23 Resp 18 11/18/24 11:23 BP 182/67 H 11/18/24 11:21 Pulse Ox 97 11/18/24 11:21 O2 Del Method Nasal Cannula 11/18/24 11:21 O2 Flow Rate 2 11/18/24 11:21 BMI result Body Mass Index 38.8 General: AOx3, no acute distress. Oropharyngeal wheezing. Speaking in 2-3 word sentences before having to take a breath. Resp: CTA bilaterally though diminished. CVS: S1, S2, RRR GI: +BS, NT, no distention Skin: Warm, dry Neuro: Cranial nerves II-XII grossly intact bilaterally. Motor grossly intact bilaterally Extremities: No edema Psych: Anxious Results Labs 11/18/24 03:44 11/18/24 03:44 Labs: Laboratory Results - last 24 hr 11/18/24 11/18/24 03:44 03:50 MCV 96.8 MCH 31.8 MCHC 32.9 RDW 13.9 Plt Count 272 D MPV 8.9 L Immature Gran % (Auto) 0.3 Neut % (Auto) 81.9 H Lymph % (Auto) 8.2 L [place] % (Auto) 5.1 Eos % (Auto) 4.3 H Baso % (Auto) 0.2 Lymph # (Auto) 0.8 L [place] # (Auto) 0.5 Eos # (Auto) 0.4 Baso # (Auto) 0.0 Abs Immat Gran (auto) 0.03 Absolute Neuts (auto) 7.7 Absolute Nucleated RBC 0.000 Nucleated RBC % (auto) 0.0 VBG pH 7.46 H VBG pCO2 45 VBG pO2 134 VBG HCO3 32 H VBG O2 Saturation 100.0 VBG Base Excess 7.5 Anion Gap 15 Estim Creat Clear Calc 84.2 Estimated GFR > 60 Random Glucose 220 H Calcium 9.4 D Magnesium 1.9 Total Bilirubin 0.2 AST 27 ALT 17 Alkaline Phosphatase 60 B-Natriuretic Peptide 27 Total Protein 7.0 Albumin 3.9 Influenza Type A (PCR) NEGATIVE Influenza Type B (PCR) NEGATIVE RSV RNA Qual (PCR) NEGATIVE SARS-CoV-2 RNA (RT-PCR) NEGATIVE Assessment and Plan (1) Acute exacerbation of chronic obstructive pulmonary disease: Status: Acute Plan Pt is a 59-year-old female with a PMH significant for?chronic hypoxic respiratory failure due to COPD on 1L at night, 2L at rest, and 3L with exertion, HTN, HLD, hx of CVA, MVR, trigeminal neuralgia, occipital neuralgia, JUANITO unable to tolerate CPAP due to trigeminal neuralgia, and anxiety/panic disorder who presents to the ED with?SOB, PRECIADO, and nonproductive cough since yesterday after taking her dog outside for a walk. Pt will be admitted to the hospital under observation for acute COPD exacerbation not sufficiently alleviated by ED treatments. Acute on chronic COPD exacerbation Increased SOB, PRECIADO not alleviated by home O2 or inhalers/nebulizers; speaking in 2-3 word sentences due to increased work of breathing despite ED treatments No fever or productive cough, CXR negative, RSV/COVID/Flu negative; VBG without CO2 retention Little concern for pneumonia, no sepsis Initially set to be discharged from ED due to negative workup but became severely dyspnic with walking to the bathroom Will treat MDIs, prednisone 20 mg p.o. Continue home 2L O2 at rest CVA/HLD Continue aspirin, statin HTN Continue amlodipine Trigeminal neuralgia Continue baclofen, gabapentin Mood disorder Continue meds Chronic lower leg edema Compression stockings, home lasix Full Code Attending:?Dr. Hu DVT Prophylaxis: Lovenox Pt will be admitted to the hospital under observation for treatment and further evaluation of acute COPD exacerbation sufficiently alleviated by home inhalers or ED treatments. Quality Stroke Does the patient have a stroke diagnosis?: No VTE Prior VTE?: No VTE Risk Level:: Medical - moderate - high VTE Device Contraindication: Treatment Not Indicated VTE Drug Contraindication: N/A - Med Ordered
--- NOTE | 2024-11-18 11:50 | PC.NURSE ---
RN to RN report given to Alysa Peoples RN in Overflow.
[2024-11-18] MEDS: predniSONE 20 MG TABLET PO (11:58)
--- NOTE | 2024-11-18 14:38 | PHA.MEDREC ---
Pharmacy Consult ? Medication Reconciliation Pharmacy has completed the medication reconciliation. Pt was just here on 10/31/24. Utilized discharge med lsit to confirm.
[2024-11-18] MEDS: 0.9 % Sodium Chloride Flush 3 ML SYRINGE IVFLUSH ×2 (16:35→23:13)
--- NOTE | 2024-11-18 16:54 | MHC.EDTECH ---
Ambulated PT to bathroom stating 99 while on 3 liter of oxygen.
[2024-11-18] MEDS: Albuterol Sulfate 90 MCG 8 GM INHALER 2 PUFF INHALE (18:20)
[2024-11-18] MEDS: LORazepam 1 MG TABLET PO (18:22)
[2024-11-18] MEDS: Aspirin Enteric Coated 81 MG TABLET.DR PO (20:43)
[2024-11-18] MEDS: Gabapentin 400 MG CAPSULE 1200 MG PO (20:43)
[2024-11-18] MEDS: Prazosin HCL 1 MG CAPSULE 2 MG PO (20:43)
[2024-11-18] MEDS: DULoxetine HCl 60 MG CAPSULE.DR PO (20:44)
[2024-11-18] MEDS: Atorvastatin Calcium 80 MG TABLET PO (20:44)
[2024-11-18] MEDS: guaiFENesin DM 600/30 1 TAB TAB.ER.12H PO (20:44)
[2024-11-18] MEDS: Baclofen 20 MG TABLET PO (20:44)
[2024-11-18] MEDS: VerapamiL HCL 120 MG TABLET PO (20:44)
[2024-11-18] MEDS: OXcarbazepine 300 MG TABLET PO (20:47)
[2024-11-18] MEDS: oxyCODONE HCl Immed Release 5 MG TABLET PO (21:27)
--- NOTE | 2024-11-18 23:21 | PC.NURSE ---
This RN assumed pt care @ 2300. Pt a&Ox4, no signs of distress Pt on 2l nc Pt reporting 9/10 pain Pt requesting update on home meds This RN advised home meds entered by provider and will be administered at 0500 per mar Pt medicated per Plan of care ongoing.
[2024-11-19] VITALS (8 sets, daily range): BP systolic 103–140; BP diastolic 62–65; PULSE 83–86; RESP 19–20; TEMP 36.2–36.8; O2SAT 92–94
--- NOTE | 2024-11-19 00:15 | PC.NURSE ---
The pt requesting RT/breathing tx RT called and notified. Per RT pt was recently given a breathing tx. Pt updated regarding breathing tx. Pt requested and 02 lowered to 1L instead of 2L Plan of care ongoing.
--- NOTE | 2024-11-19 00:41 | PC.NURSE ---
RT with pt. Plan of care ongoing.
[2024-11-19] MEDS: VerapamiL HCL 120 MG TABLET PO (04:38)
[2024-11-19] MEDS: DULoxetine HCl 60 MG CAPSULE.DR PO (04:38)
[2024-11-19] MEDS: Gabapentin 400 MG CAPSULE 1200 MG PO (04:38)
[2024-11-19] MEDS: OXcarbazepine 300 MG TABLET PO (04:38)
[2024-11-19] MEDS: Baclofen 20 MG TABLET PO (04:39)
--- NOTE | 2024-11-19 04:46 | PC.NURSE ---
Pt requesting meds Pt medicated per aug Pt requesting and IV covered as it was getting caught while she was knitting Pt reporting 02/21 pain Plan of care ongoing.
[2024-11-19] MEDS: Albuterol/Iprat 2.5/0.5MG 3 ML AMPUL.NEB INHALE (05:29)
--- NOTE | 2024-11-19 06:01 | PC.NURSE ---
Pt removed from duoneb tx Plan of care ongoing
[2024-11-19] MEDS: guaiFEN/Codeine SF 200/20/10ML 10 ML LIQUID PO (06:14)
--- NOTE | 2024-11-19 06:15 | PC.NURSE ---
Pt requested and given cough medicine Pt medicated per [facility] Plan of care ongoing.
--- NOTE | 2024-11-19 08:03 | PM.DS ---
DS: Providers Provider Date of Service: 11/19/24 Date of admission: 11/18/24 11:18 Date of discharge: 11/19/24 Primary care physician: Rhett Cortez MD DS: Diagnosis Discharge Diagnosis (1) Acute exacerbation of chronic obstructive pulmonary disease: Status: Acute DS: Summary Hospital Course Hospital Course: Pt is a 59-year-old female with a PMH significant for?chronic hypoxic respiratory failure due to COPD on 1L at night, 2L at rest, and 3L with exertion, HTN, HLD, hx of CVA, MVR, trigeminal neuralgia, occipital neuralgia, JUANITO unable to tolerate CPAP due to trigeminal neuralgia, and anxiety/panic disorder who presents to the ED with?SOB, PRECIADO, and nonproductive cough since yesterday after taking her dog outside for a walk. Pt reports both seasonal allergens and hot humid weather exacerbate her COPD. No fever or chills. Denies chest pain/pressure, palpitations. No nausea, vomiting, abdominal pain. Initial workup in the ED was unremarkable without significant CBC or BMP abnormalities. Pt was not hypoxic either at rest or with ambulation, and lungs were CTA. CXR negative for acute process. VBG overall reassuring without CO2 retention. Pt was initially discharged from the ED, though when pt went ambulated to the bathroom became severely dyspneic and had to rest multiple times in a span of only 20 steps or so. Pt was brought back to her room where she was again auscultated and lungs remained CTA, though pt was noted to have oropharyngeal wheezing and speaking in 2-3 word sentences before having to take a breath. O2 sat during ambulation 93-94% on home 2L O2. Pt will be admitted to the hospital under observation for acute on chronic COPD exacerbation not sufficiently alleviated by home inhalers or ED treatments. Hospital course: Patient was observed overnight and treated with prednisone, bronchodilators by nebulizer she made a rapid recovery by the following day she was feeling better and was been discharged with Prednisone and to continue usual inhalers Time Attestation Discharge Coordination Time (in mins): 35 Quality: Safe Use of Opioids Does Pt have an Active Cancer Diagnosis on the Problem List?: No Quality: Stroke Does the patient have a stroke diagnosis?: No Physical Exam Vital Signs: Vital Signs: Last Vital Signs Temp 98.2 F 11/19/24 07:19 Pulse 83 11/19/24 07:19 Resp 19 11/19/24 07:19 BP 103/63 11/19/24 07:19 Pulse Ox 94 11/19/24 07:19 O2 Del Method Nasal Cannula 11/19/24 07:19 O2 Flow Rate 2 11/19/24 07:19 BMI result Body Mass Index 38.8 Const: Other: General: AO X 3, no acute distress Resp: CTA bilateral CVS: S1,S2,RRR GI: +BS, NT, no distention Skin: No rash Neuro: motor grossly intact Psych: appropriate affect DS: Data Data Completed and Pending Completed studies during hospitalization [Text1]: Procedures Assistance with Respiratory Ventilation, Less than 24 Consecutive Hours, Continuous Positive Airway Pressure (08/22/24) Discharge Plan Discharge Anticipated Discharge Date/Time: 11/19/24 07:59 Patient Disposition: Home, Self-Care Discharge Diagnosis: Acute exacerbation of COPD Referrals: Rhett Cortez MD [Primary Care Provider] - 1 Week Discharge Medications: New cefuroxime axetil 500 mg tablet 500 mg PO BID 7 Days Qty: 14 0RF prednisone 20 mg tablet 40 mg PO DAILY Qty: 10 0RF Continued ipratropium-albuterol 0.5 mg-3 mg(2.5 mg base)/3 mL solution for nebulization 3 ml inhalation Q4H PRN (Reason: for dyspnea) Qty: 180 11RF valsartan 80 mg tablet 80 mg PO DAILY Qty: 30 2RF verapamil 120 mg tablet 120 mg PO BID@0500,2000 lorazepam 0.5 mg tablet 1 mg PO DAILY PRN (Reason: MODERATE Anxiety) Trelegy Ellipta 200-62.5-25 mcg blister with device 1 ea INHALATION DAILY baclofen 20 mg tablet 20 mg PO TID@0500,1200,2000 ciclopirox 8 % solution 1 appl topical DAILY oxycodone 5 mg tablet 5 mg PO BID PRN (Reason: Severe Pain (Scale Score 7-10)) aripiprazole 2 mg Tablet 2 mg PO DAILY benzonatate 100 mg Capsule 100 mg PO TID PRN (Reason: Cough) Qty: 30 0RF codeine-guaifenesin 10-100 mg/5 mL Liquid 10 ml PO Q6H PRN (Reason: Cough) Qty: 473 0RF Mucus DM 30-600 mg Tablet Extended Release 12 Hr 1 tab PO BID Qty: 20 0RF furosemide 20 mg tablet 20 mg PO DAILY Qty: 3 0RF atorvastatin 80 mg tablet 80 mg PO DAILY@1999 ryufbxtppe-tfwcbsxuklspv-brid 50-325-40 mg tablet 1 tab PO DAILY MRX1 PRN (Reason: Migraine Headache) hyoscyamine sulfate 0.125 mg tablet 0.25 mg PO Q6H PRN (Reason: Abdominal Discomfort) gabapentin 300 mg capsule 1,200 mg PO TID@0500,1200,1999 duloxetine 60 mg capsule,delayed release(DR/EC) 60 mg PO BID@0500,1999 oxcarbazepine 600 mg tablet 300 mg PO BID@0500,1999 (DME) nebulizer and compressor Device See Rx Instructions .Route Qty: 1 0RF Rx Instructions: As directed albuterol sulfate 90 mcg/actuation HFA aerosol inhaler 2 puff inhalation Q4H PRN (Reason: Shortness Of Breath Or Wheezing) aspirin 81 mg tablet,delayed release (DR/EC) 81 mg PO DAILY@1999 calcium carbonate-vitamin D3 600 mg-5 mcg (200 unit) tablet 1 tab PO DAILY@1999 roflumilast [Daliresp] 500 mcg tablet 500 mcg PO DAILY 30 Days Qty: 30 11RF prazosin 2 mg capsule 2 mg PO DAILY@1999 (DME) Oxygen Home Use Kit See Rx Instructions .Route Rx Instructions: As directed Discharge Orders: Discharge Order (Routine); Ordered 11/19/24 Ordered By: Judah Hu Diet: Advance to usual diet Activity on Discharge: As tolerated Stand Alone Forms: Patient Portal Discharge page Print Language: Belarusian Activity Restrictions/Additional Instructions: Continue to use nebulizer treatments at home Prednisone as prescribed Antibiotics as prescribed Follow up with your PCP/internal audit manager if not better Care Plan Goals: Recovery from COPD exacerbation Health Concerns: COPD exacerbation Chronic respiratory failure Plan of Treatment: Take prednisone as directed Follow-up with your primary care physician within a week Use oxygen as directed Assessment: See above Patient Instructions: COPD (Chronic Obstructive Pulmonary Disease) (ED)
[2024-11-19] MEDS: Roflumilast 500 MCG TABLET PO (08:08)
[2024-11-19] MEDS: Fluticasone/Umeclidinium/Vilanterol 200/62.5/25 BLST.W.DEV 1 PUFF INHALE (08:08)
[2024-11-19] MEDS: Valsartan 80 MG TABLET PO (08:08)
[2024-11-19] MEDS: predniSONE 20 MG TABLET PO (08:09)
[2024-11-19] MEDS: guaiFENesin DM 600/30 1 TAB TAB.ER.12H PO (08:09)
[2024-11-19] MEDS: 0.9 % Sodium Chloride Flush 3 ML SYRINGE IVFLUSH (08:09)
[2024-11-19] MEDS: ARIPiprazole 2 MG TABLET PO (08:09)
[2024-11-19] MEDS: Furosemide 20 MG TABLET PO (08:09)
[2024-11-19] MEDS: oxyCODONE HCl Immed Release 5 MG TABLET PO (08:45)
--- NOTE | 2024-11-19 09:24 | PC.NURSE ---
DC instr/follow up reviewed with pt; pt verbalized understanding; all belongings with pt/verified by pt; pt DC on home O2 (home concentrator) in stable condition
== END 2024-11-19 09:26 | disposition home or self-care (01) ==
LOC: HO.ED 12:31 → HO.EDOVER 15:10
PROVIDERS: Admitting Provider Student in an Organized Health Care Education/Training Program; Emergency Provider Internal Medicine; PCP Internal Medicine; Visit Provider Internal Medicine
DX: J44.1 Chronic obstructive pulmonary disease with (acute) exacerbation (principal); R06.82 Tachypnea, not elsewhere classified; I10 Essential (primary) hypertension; E78.5 Hyperlipidemia, unspecified; G47.33 Obstructive sleep apnea (adult) (pediatric); Z99.81 Dependence on supplemental oxygen; Z79.899 Other long term (current) drug therapy; Z03.818 Encounter for observation for suspected exposure to other biological agents ruled out
CPT/HCPCS: 0241U; 36415; 71045; 80053; 82803; 83735; 83880; 85025; 93005; 94640; 96361; 96365; 99285; J3475

== ENCOUNTER → 2024-11-18 03:14 | Outpatient (BNV) | payer BC, SELFPAY | PROVIDERS: Emergency Provider Internal Medicine; PCP Internal Medicine; Visit Provider Internal Medicine | DX: R00.0 Tachycardia, unspecified (principal) | CPT/HCPCS: 93010 ==

== ENCOUNTER → 2024-11-18 11:18 | Outpatient (BNV) | payer BC, SELFPAY | PROVIDERS: Admitting Provider Student in an Organized Health Care Education/Training Program; Emergency Provider Internal Medicine; PCP Internal Medicine; Visit Provider Student in an Organized Health Care Education/Training Program | DX: J44.1 Chronic obstructive pulmonary disease with (acute) exacerbation (principal) | CPT/HCPCS: 99222; 99239 ==

== ENCOUNTER 2024-11-30 20:52 | Inpatient (IN) | payer BC, SELFPAY ==
[2024-11-30] VITALS (11 sets, daily range): BP systolic 56–117; BP diastolic 34–69; PULSE 73–114; RESP 12–24; TEMP 36.6; O2SAT 85–93; BMI 39.7
--- NOTE | ~2024-11-30 | CT_ITS ---
CLINICAL HISTORY: hypoxic, cxr wnl, contrast allergy CT chest without contrast Comparison: CT/SR - CT CHEST WO IV CON - 10/29/24 05:09 EDT Findings: The heart is normal size. Coronary artery calcifications. The visualized thyroid and mediastinum are unremarkable. Mild centrilobular emphysema. Mild bilateral atelectasis. No lobar consolidation. No significant pleural effusion or pneumothorax. Tiny scattered right lung pulmonary nodules measuring no more than 3 mm. Per Fleischner criteria: Low-risk patients: No routine follow-up required. High-risk patients: Optional CT at 12 months. Distended gallbladder. Thoracic diffuse idiopathic skeletal hyperostosis. Osteopenia. Probable bone island noted at T5. No acute fracture. IMPRESSION: No acute intrathoracic pathology. Additional findings described. This document has been electronically signed by: Livan Palm MD on 12/01/2024 01:06:49
--- NOTE | ~2024-11-30 | CT_ITS ---
EXAMINATION: CT HEAD WITHOUT CONTRAST CLINICAL INFORMATION: Confusion COMPARISON: MRI November 10, [address] July 28, 2016 TECHNIQUE: Contiguous axial imaging was performed from the skull base to vertex without intravenous administration of contrast. This CT examination was performed using dose optimization techniques as appropriate, variously including the following: *Automated exposure control *Adjustment of mA and/or kV according to patient size (this includes techniques or standardized protocols for targeted exams where dose is matched to indication/reason for exam; i.e. extremities or head) *Use of iterative reconstruction technique DLP: 1574 mGY*cm FINDINGS: There is no acute ischemic change. There is no intracranial hemorrhage. There is no mass-effect or midline shift. There is mild generalized volume loss. Basal cisterns and ventricles are within normal limits for age/cerebral volume. Orbits are symmetrical and unremarkable. Left parotid gland mass is not fully imaged on the current examination and measures 9 mm, previously 12 mm. Paranasal sinuses and mastoid air cells are pneumatized. There are no bony abnormalities. CT/CT head/brain wo IV con IMPRESSION: No acute intracranial abnormality. Electronically signed by: Deric Meeks MD 12/01/2024 11:36 AM EDT
--- NOTE | ~2024-11-30 | CT_ITS ---
EXAMINATION: CT ABDOMEN AND PELVIS WITHOUT CONTRAST CLINICAL INFORMATION: Right flank pain DLP: 1574 mGY*cm COMPARISON: None available. TECHNIQUE: Multidetector volumetric imaging was performed from the superior aspect of the liver through the pubic symphysis. Sagittal and coronal reformatted images were obtained on the technologist's workstation. This CT examination was performed using dose optimization techniques as appropriate, variously including the following: *Automated exposure control *Adjustment of mA and/or kV according to patient size (this includes techniques or standardized protocols for targeted exams where dose is matched to indication/reason for exam; i.e. extremities or head) *Use of iterative reconstruction technique FINDINGS: LUNG BASES: Minimal dependent atelectasis is evident. LIVER, GALLBLADDER, AND BILIARY TREE: The liver is normal in size, shape, and attenuation. No focal hepatic lesion or biliary ductal dilatation is present. The gallbladder is unremarkable with no evidence of radiopaque gallstones, gallbladder wall thickening, or obvious pericholecystic inflammatory changes. PANCREAS: Unremarkable. SPLEEN: Unremarkable. ADRENAL GLANDS: Unremarkable. KIDNEYS AND URETERS: 2 punctate stones are present in the left kidney measuring 1-2 mm. There is no hydronephrosis. There are no stones in the right kidney. BLADDER: Bladder is partially decompressed and unremarkable. GASTROINTESTINAL TRACT: The small and large bowel are unremarkable. The appendix is unremarkable. ABDOMINAL WALL: 2 foci of fat stranding in the right lower superficial subcutaneous soft tissues with air is likely related to insulin injections. LYMPH NODES: Normal. VASCULAR: Minimal atherosclerotic ossifications are evident. PELVIC VISCERA: Uterus and ovaries are unremarkable. OSSEOUS STRUCTURES: Severe degenerative disc disease is present at L5-S1. CT/CT abdomen pelvis wo IV con IMPRESSION: 2 small stones in the left kidney without evidence of obstruction. Fleischner guidelines were followed. Electronically signed by: Deric Meeks MD 12/01/2024 11:46 AM EDT
--- NOTE | ~2024-11-30 | XR_ITS ---
CLINICAL HISTORY: sob 1 view chest x-ray Comparison: 11/18/2024 Findings: Portions of the exam are obscured by overlying material. The lungs are clear. Heart size is normal. No acute fracture. IMPRESSION: 1. No acute findings. This document has been electronically signed by: Celso Lamar MD on 11/30/2024 22:33:59
--- NOTE | 2024-11-30 21:19 | ECG_ITS ---
Test Reason : SOB Blood Pressure : */* mmHG Vent. Rate : 98 BPM Atrial Rate : 98 BPM P-R Int : 96 ms QRS Dur : 90 ms QT Int : 364 ms P-R-T Axes : 104 71 231 degrees QTcB Int : 464 ms Sinus rhythm with short IN Marked ST abnormality, possible inferior subendocardial injury Abnormal ECG When compared with ECG of 18-Nov-2024 03:14, IN interval has decreased ST now depressed in Anterolateral leads T wave inversion now evident in Lateral leads Referred By: Juli Aleman Electronically Signed By: Eladio Nelson
--- NOTE | 2024-11-30 21:21 | ED.SOB ---
HPI - SOB/Dyspnea General Chief Complaint: Dyspnea Stated Complaint: chest pressure, bp 50/30 Time Seen by Provider: 11/30/24 21:06 Source: patient and EMS Mode of arrival: EMS Limitations: no limitations History of Present Illness ED Provider: Dr. Juli Aleman HPI Narrative: Patient comes to the emergency room complaining of shortness of breath. Patient is known to have history of COPD, uses 1 L at bedtime, 2 L at rest and 3 L with exertion. Patient states that yesterday she was diagnosed with CHF and started on Lasix. Patient complaining of dizziness when she stands. Also, patient is complaining that her vision is ?purple . Patient denies any chest pain. Patient denies any fever or chills. Related Data Home Medications ?Medication ?Instructions ?Recorded ?Confirmed atorvastatin 80 mg tablet 80 mg PO DAILY@199903/04/23 11/18/24 vjqlhakzwt-uerfhctdmdmen-klvsekxf 1 tab PO DAILY MRX1 PRN Migraine 03/04/23 11/18/24 50 mg-325 mg-40 mg tablet Headache duloxetine 60 mg capsule,delayed 60 mg PO BID@050,199903/04/23 11/18/24 release gabapentin 300 mg capsule 1,200 mg PO TID@0500,1200,199903/04/23 11/18/24 hyoscyamine sulfate 0.125 mg tablet 0.25 mg PO Q6H PRN Abdominal 03/04/23 11/18/24 Discomfort Oxygen Home Use 04/16/23 10/29/24 prazosin 2 mg capsule 2 mg PO DAILY@199904/16/23 11/18/24 albuterol sulfate 90 mcg/actuation 2 puff inhalation Q4H PRN 01/31/24 11/18/24 aerosol inhaler Shortness Of Breath Or Wheezing aspirin 81 mg tablet,delayed 81 mg PO DAILY@199905/22/24 11/18/24 release calcium 600 mg (as 1 tab PO DAILY@199906/20/24 11/18/24 carbonate)-vitamin D3 5 mcg (200 unit) tablet verapamil 120 mg tablet 120 mg PO BID@0500,199907/02/24 11/18/24 lorazepam 0.5 mg tablet 1 mg PO DAILY PRN MODERATE Anxiety 08/03/24 11/18/24 fluticasone fur. 200 mcg-umeclid 1 ea inhalation DAILY 08/22/24 11/18/24 62.5 mcg-vilant 25 mcg inhalat.powder (Trelegy Ellipta) oxcarbazepine 600 mg tablet 300 mg PO BID@0500,199910/06/24 11/18/24 aripiprazole 2 mg tablet 2 mg PO DAILY 10/29/24 11/18/24 baclofen 20 mg tablet 20 mg PO TID@0500,1200,199910/29/24 11/18/24 ciclopirox 8 % topical solution 1 appl topical DAILY 10/29/24 11/18/24 oxycodone 5 mg tablet 5 mg PO BID PRN Severe Pain (Scale 10/29/24 11/18/24 Score 7-10) Previous Rx's ?Medication ?Instructions ?Recorded nebulizer and compressor #1 ea 12/16/23 ipratropium 0.5 mg-albuterol 3 mg 3 ml inhalation Q4H PRN for 03/02/24 (2.5 mg base)/3 mL nebulization dyspnea #180 mL soln valsartan 80 mg tablet 80 mg PO DAILY #30 tabs 10/04/24 roflumilast 500 mcg tablet 500 mcg PO DAILY 30 days #30 tabs 10/06/24 (Daliresp) benzonatate 100 mg capsule 100 mg PO TID PRN Cough #30 caps 10/31/24 codeine 10 mg-guaifenesin 100 mg/5 10 ml PO Q6H PRN Cough #473 mL 10/31/24 mL oral liquid dextromethorphan-guaifenesin 30 1 tab PO BID #20 tabs 10/31/24 mg-600 mg tablet extended [id number] hr (Mucus DM) furosemide 20 mg tablet 20 mg PO DAILY #3 tabs 10/31/24 cefuroxime axetil 500 mg tablet 500 mg PO BID 7 days #14 tabs 11/18/24 prednisone 20 mg tablet 40 mg (2 x 20 mg) PO DAILY #10 tabs 11/18/24 Allergies Allergy/AdvReac Type Severity Reaction Status Date / Time Iodinated Contrast Media (IV Allergy Intermediate HIVES Verified 11/30/24 21:08 CONTRAST) latex (LATEX) Allergy Unknown RASH Verified 11/30/24 21:08 adhesive tape Allergy Rash Verified 11/30/24 21:08 morphine (MORPHINE) AdvReac Unknown VOMITING Verified 11/30/24 21:08 Review of Systems Review of Systems: Constitutional : No Weight loss, No Fever, No Chills, No Night Sweats, No Fatigue, No Malaise ENT/Mouth : No Hearing loss, No Ear Pain, No Nasal Congestion, No Sinus Pain, No Hoarseness, No sore throat, No Rhinorrhea, No Swallowing Difficulty Eyes: No Eye Pain, No Swelling, No Redness, No Foreign Body, No Discharge, No Vision Changes Cardiovascular : No chest pain, no orthopnea no edema Respiratory : Patient complaining of cough, shortness of breath, mild wheezing Gastrointestinal : No Nausea, No Vomiting, No Diarrhea, No Constipation, No abdominal Pain, No Hematochezia, No Melena Genitourinary : no irregular bleeding, No Dysuria, No Urinary Frequency, No Hematuria, No Urinary Incontinence, No Urgency, No Flank Pain, No Urinary Flow Changes, No Hesitancy Musculoskeletal : No joint pain, No Myalgias, No Joint Swelling Skin : No Skin Lesions, No rash Neuro : No Weakness, No Numbness, No Paresthesias, No Loss of Consciousness, No Dizziness, No Headache Psych : No Anxiety/Panic, No Depression, No SI/HI/AH/VH, No Social Issues, Heme/Lymph: No Bruising, No Bleeding,No Lymphadenopathy Endocrine : No Polyuria, No Polydipsia, No Temperature Intolerance [facility] Past Medical History Medical History Panic disorder Hypertension Chronic hypercapnic respiratory failure Aortic stenosis Obesity (BMI 30-39.9) Asthma Acute exacerbation of chronic obstructive pulmonary disease Chronic lung disease Hypogammaglobulinemia Smoker JUANITO (obstructive sleep apnea) Allergies Elevated troponin COPD (chronic obstructive pulmonary disease) Trigeminal neuralgia Pulmonary nodules Mixed hyperlipidemia Peripheral neuropathy Tobacco use disorder Mood disorder Surgical History History of esophagogastroduodenoscopy (EGD) History of colonoscopy History of lumbar discectomy History of tubal ligation History of excision of mass History of shoulder surgery Social History Social History Household Members: Spouse Housing: House Do you presently have visiting nurse or other home services: No Alcohol intake: never Comment: pt steady on feet, refusing all alarms Patient Tobacco Use Status: Former Tobacco user Tobacco use type: Cigarette Cigarette Packs Per Day: 4 Cigarettes Per Day: 80.0 Years Smoked: 40 e-Cigarette/Vaping Use: Currently Using Second Hand Smoke Exposure: No Substance Use Type: Marijuana Advance Directives: Yes Advance Directives on File: Yes Advance Directives Date on File: 03/09/23 service: No Physical Exam Vital Signs: Vital Signs: Last Vital Signs Temp 97.9 F 11/30/24 21:12 Pulse 83 12/01/24 00:08 Resp 18 12/01/24 00:08 BP 139/56 L 12/01/24 00:08 Pulse Ox 92 11/30/24 23:47 O2 Del Method Oxymask 11/30/24 23:47 O2 Flow Rate 5 11/30/24 23:47 Oxygen Flow Rate 2 11/30/24 21:02 BMI result Body Mass Index 39.7 Const: Other: Appearance: Alert. Oriented X3. No acute distress. Eyes: Pupils equal, round and reactive to light. ENT: Pharynx normal. Neck: Normal inspection. Neck supple. No lymph nodes noted. No crepitus CVS: Normal heart rate and rhythm. Pulses normal. Normal S1 and S2 Respiratory: Patient is a bit tachypneic, mild bilateral wheezing, moderate air movement, no crackles or rales Abdomen: Soft and nontender. No rigidity. No distention. Skin: Skin warm and dry. Normal skin color. Normal skin turgor. Extremities: No lower extremity edema Neuro: Oriented X 3. No motor deficit. No sensory deficit. Moving all extremities. No slurred speech. CN 2 through 12 grossly intact Psych: calm, cooperative, normal affect Course Course Course Narrative: Patient coming in with significant shortness of breath, history of COPD on 2 L at baseline without exertion, 3L with exertion. Patient was recently discharged, 11 days ago from this hospital for COPD exacerbation. Given patient's history and presentation, we will treat the patient empirically with IV fluids and antibiotics. At this time, 21:40, sepsis protocol will be started. Antibiotics and fluids based on ideal weight of 46 kg have already been started. Patient's blood pressure is in the 70s systolic. Patient states that 2 days ago she was started on Lasix 40 mg for possible CHF. Patient has not been formally diagnosed. The last time the patient had an echocardiogram was in July of 2024, 4 months ago, the echocardiogram was normal showing an ejection fraction of greater than 70% with normal diastolic function We will start Levophed as well. It is possible that patient has low blood pressure may be secondary to over diuresis Medications Administered Generic Name Dose Route Start Last Admin Trade Name Freq PRN Reason Stop Dose Admin Norepinephrine Bitartrate 8 mg in 250 mls @ 0 mls/hr 11/30/24 21:45 11/30/24 23:33 Levophed IVCONT 0.11 mcg/kg/min .Q0M CHAPARRO 19.68 mls/hr Protocol Titration Per Protocol Discontinued Medications Generic Name Dose Route Start Last Admin Trade Name Freq PRN Reason Stop Dose Admin Ceftriaxone Sodium 1 gm 11/30/24 21:18 11/30/24 22:06 Ceftriaxone Sodium 1 Gm Vial IVPUSH 11/30/24 21:19 1 gm ONCE ONE Administration Albuterol Sulfate 5 mg/ 0 mg 11/30/24 21:49 11/30/24 21:53 Albuterol/Ipratropium 3 ml INHALE 11/30/24 21:50 1 each ONCE ONE Administration Sodium Chloride 1,500 mls @ 999 mls/hr 11/30/24 21:18 11/30/24 23:02 Ns IVCONT 11/30/24 22:48 Infused .Q1H31M ONE Infusion Azithromycin 500 mg/ Sodium 250 mls @ 125 mls/hr 11/30/24 21:18 12/01/24 00:29 Chloride IV 11/30/24 23:17 Infused ONCE ONE Infusion Methylprednisolone Sodium Succinate 125 mg 11/30/24 21:30 11/30/24 22:12 Methylprednisolone Sod Succ 125 Mg Vial IVPUSH 11/30/24 21:31 125 mg ONCE ONE Administration Medical Decision Making Medical Decision Making [facility] Narrative: My interpretation of labs: Patient's white blood cell count 11.6, normal hematology, blood gases do not show any acute abnormality, patient's blood gases are at baseline. Chemistry still pending, lactic acid 2.6, troponin slightly bumped, 23.9, likely secondary to hypoxia and hypotension, BNP 20. Serology negative for influenza COVID and RSV Chest x-ray does not show any acute abnormalities. Ideally, we should be gettin a CTA to rule out pulmonary embolism. However, patient is allergic to contrast. We will ordered a dry CT to rule out pneumonia. Patient already received 30 mL/kilogram based on ideal weight, IV antibiotics. Patient's blood pressure initially improved to the 90s systolic but shortly after dropped to the 70s systolic again. We will start Levophed 00:05: FOCUS exam has been performed Patient's blood pressure now 139/56, heart rate 83, patient's oxygen saturation 92% on [address] scan did not show any acute abnormality. Patient is awake and alert, states that she has no abdominal pain at all. No obvious wounds. It is likely that patient has hypotensive event was due to dehydration secondary to Lasix Differential Diagnosis Differential Diagnoses: The differential diagnosis associated with the presentation includes (COPD, pneumonia, CHF) Admission/Observation Consideration of admission/observation: Escalation of care including admission/observation considered Consult Healthcare Provider Management of the patient was discussed with: Orientation & Mobility Specialist Lab Data MDM Lab Attestation statement: I reviewed the patient's lab results. 11/30/24 21:50 11/30/24 21:50 Labs: Lab Results 11/30/24 11/30/24 11/30/24 Range/Units 21:50 21:54 22:01 WBC 11.6 H (4.8-10.8) X10*3/uL RBC 4.04 L (4.20-5.50) X10*6/uL Hgb 12.9 (12.0-16.0) g/dl Hct 38.8 (37.0-47.0) % MCV 96.0 (80.0-98.0) fL MCH 31.9 (27.0-33.0) pg MCHC 33.2 (31.0-35.0) g/dl RDW 13.9 (11.0-16.0) % Plt Count 388 D (160-400) X10*3/uL MPV 9.3 L (9.4-12.3) fL Immature Gran % (Auto) 0.5 H (0.0-0.4) % Neut % (Auto) 69.0 (45-73) % Lymph % (Auto) 16.4 L (20-40) % Towner % (Auto) 11.0 (2-11) % Eos % (Auto) 2.8 (0-4) % Baso % (Auto) 0.3 (0-2) % Lymph # (Auto) 1.9 (1.2-4.9) X10*3/uL Towner # (Auto) 1.3 H (0.1-1.2) X10*3/uL Eos # (Auto) 0.3 (0.0-0.4) X10*3/uL Baso # (Auto) 0.0 (0.0-0.2) X10*3/uL Abs Immat Gran (auto) 0.06 H (0.00-0.03) X10*3/uL Absolute Neuts (auto) 8.0 (2.0-8.3) x10*3/uL Absolute Nucleated RBC 0.000 (0.0-0.012) X10*3/uL Nucleated RBC % (auto) 0.0 (0.0-0.2) /100WBC VBG pH 7.49 H (7.32-7.43) VBG pCO2 43 mmHg VBG pO2 66 mmHg VBG HCO3 33 H (22-26) mmol/L VBG O2 Saturation 93.0 % VBG Base Excess 9.2 mmol/L Sodium 141 (135-145) mmol/L Potassium 3.5 (3.3-5.1) mmol/L Chloride 99 (96-108) mmol/L Carbon Dioxide 30 H (22-29) mmol/L Anion Gap 16 (12-20) BUN 20 H (9-16) mg/dL Creatinine 1.47 H (0.5-1.4) mg/dL Estim Creat Clear Calc 42.3 Estimated GFR 36 Random Glucose 123 H (60-115) mg/dL Lactic Acid 2.6 H* (0.5-2.0) mmol/L Lactic Acid F/U @ 2Hr (0.5-2.0) mmol/L Calcium 10.2 D (8.4-10.2) mg/dL Total Bilirubin 0.3 (0.0-1.0) mg/dL Direct Bilirubin 0.1 (0.0-0.5) mg/dL AST 25 (5-31) U/L ALT 15 (0-31) U/L Alkaline Phosphatase 69 (39-117) U/L Troponin I High Sens 23.9 H D (<3.5-17.0) ng/L B-Natriuretic Peptide 20 (<100) pg/mL Total Protein 7.3 (6.5-8.0) g/dL Albumin 4.1 (3.5-5.0) g/dL Influenza Type A (PCR) NEGATIVE (Negative) Influenza Type B (PCR) NEGATIVE (Negative) RSV RNA Qual (PCR) NEGATIVE (Negative) SARS-CoV-2 RNA (RT-PCR) NEGATIVE (Negative) 12/01/24 12/01/24 Range/Units 00:25 00:30 WBC (4.8-10.8) X10*3/uL RBC (4.20-5.50) X10*6/uL Hgb (12.0-16.0) g/dl Hct (37.0-47.0) % MCV (80.0-98.0) fL MCH (27.0-33.0) pg MCHC (31.0-35.0) g/dl RDW (11.0-16.0) % Plt Count (160-400) X10*3/uL MPV (9.4-12.3) fL Immature Gran % (Auto) (0.0-0.4) % Neut % (Auto) (45-73) % Lymph % (Auto) (20-40) % Towner % (Auto) (2-11) % Eos % (Auto) (0-4) % Baso % (Auto) (0-2) % Lymph # (Auto) (1.2-4.9) X10*3/uL Towner # (Auto) (0.1-1.2) X10*3/uL Eos # (Auto) (0.0-0.4) X10*3/uL Baso # (Auto) (0.0-0.2) X10*3/uL Abs Immat Gran (auto) (0.00-0.03) X10*3/uL Absolute Neuts (auto) (2.0-8.3) x10*3/uL Absolute Nucleated RBC (0.0-0.012) X10*3/uL Nucleated RBC % (auto) (0.0-0.2) /100WBC VBG pH 7.33 (7.32-7.43) VBG pCO2 53 mmHg VBG pO2 122 mmHg VBG HCO3 28 H (22-26) mmol/L VBG O2 Saturation 99.0 % VBG Base Excess 1.5 mmol/L Sodium (135-145) mmol/L Potassium (3.3-5.1) mmol/L Chloride (96-108) mmol/L Carbon Dioxide (22-29) mmol/L Anion Gap (12-20) BUN (9-16) mg/dL Creatinine (0.5-1.4) mg/dL Estim Creat Clear Calc Estimated GFR Random Glucose (60-115) mg/dL Lactic Acid (0.5-2.0) mmol/L Lactic Acid F/U @ 2Hr 1.8 (0.5-2.0) mmol/L Calcium (8.4-10.2) mg/dL Total Bilirubin (0.0-1.0) mg/dL Direct Bilirubin (0.0-0.5) mg/dL AST (5-31) U/L ALT (0-31) U/L Alkaline Phosphatase (39-117) U/L Troponin I High Sens (<3.5-17.0) ng/L B-Natriuretic Peptide (<100) pg/mL Total Protein (6.5-8.0) g/dL Albumin (3.5-5.0) g/dL Influenza Type A (PCR) (Negative) Influenza Type B (PCR) (Negative) RSV RNA Qual (PCR) (Negative) SARS-CoV-2 RNA (RT-PCR) (Negative) Independent Interpretation I performed an independent interpretation of an: CT Scan Radiology Impression Discussion of test interpretation with radiology: I have reviewed the radiologist's reading. Radiologist Impression: The heart is normal size. Coronary artery calcifications. The visualized thyroid and mediastinum are unremarkable. Mild centrilobular emphysema. Mild bilateral atelectasis. No lobar consolidation. No significant pleural effusion or pneumothorax. Tiny scattered right lung pulmonary nodules measuring no more than 3 mm. Per Fleischner criteria: Low-risk patients: No routine follow-up required. High-risk patients: Optional CT at 12 months. Distended gallbladder. Thoracic diffuse idiopathic skeletal hyperostosis. Osteopenia. Probable bone island noted at T5. No acute fracture. IMPRESSION: No acute intrathoracic pathology. Additional findings described Critical Care Time Critical Care Time Critical Care Time: Yes Total Critical Care Time: 75 Attestation: I have personally provided critical care time. Time includes review of lab data, radiology results, discussion with consultants, and monitoring for potential decompensation. Intervention performed as documented. Discharge Plan Discharge Clinical Impression: Chronic lung disease, Dehydration, Hypotension Patient Disposition: Admitted As Inpatient Print Language: Malay
[2024-11-30] MEDS: 0.9 % Sodium Chloride 1,500 ML 999 ML IVCONT (21:30)
[2024-11-30] MEDS: Albuterol Sulfate 5 MG, Albuterol/Iprat 2.5/0.5MG 3 ML 3 ML INHALE (21:53)
[2024-11-30 21:56] LABS: MANUAL DIFF FLAG NO
[2024-11-30 22:04] LABS: Venous Blood Gas Refer to POC result
[2024-11-30 22:04] LABS: Basophils Percent Auto 0.3 % (0-2); Eosinophils Absolute Auto 0.3 X10*3/uL (0.0-0.4); Eosinophils Percent Auto 2.8 % (0-4); Hematocrit 38.8 % (37.0-47.0); Hemoglobin 12.9 g/dl (12.0-16.0); Imm Gran Abs Auto 0.06 X10*3/uL (0.00-0.03); Imm Gran Pct Auto 0.5 % (0.0-0.4); Lymphocytes Absolute Auto 1.9 X10*3/uL (1.2-4.9); Lymphocytes Percent Auto 16.4 % (20-40); Mean Corpuscular HGB Conc 33.2 g/dl (31.0-35.0); Mean Corpuscular Hemoglobin 31.9 pg (27.0-33.0); Mean Platelet Volume 9.3 fL (9.4-12.3); Monocytes Absolute Auto 1.3 X10*3/uL (0.1-1.2); Platelet Count 388 X10*3/uL (160-400); Red Blood Count 4.04 X10*6/uL (4.20-5.50); Red Cell Distribution Width 13.9 % (11.0-16.0); White Blood Count 11.6 X10*3/uL (4.8-10.8)
[2024-11-30 22:05] LABS: VBG Base Excess 9.2 mmol/L; VBG HCO3 33 mmol/L (22-26); VBG pCO2 43 mmHg; VBG pH 7.49 (7.32-7.43); VBG pO2 66 mmHg
[2024-11-30] MEDS: cefTRIAXone sodium 1 GM VIAL IVPUSH (22:06)
--- NOTE | 2024-11-30 22:06 | PC.NURSE ---
abx delayed d/t first three peripheral IVs blowing
[2024-11-30] MEDS: Azithromycin 500 MG in 0.9 % Sodium Chloride 250 ML 125 MG IV (22:12)
[2024-11-30 22:15] LABS: Lactic Acid 2.6 mmol/L (0.5-2.0)
[2024-11-30 22:19] LABS: Troponin-I High Sensitivity 23.9 ng/L (<3.5-17.0)
[2024-11-30 22:36] LABS: Influenza A PCR NEGATIVE (Negative); Influenza B PCR NEGATIVE (Negative); Resp Syncy Virus RNA Qual PCR NEGATIVE (Negative); SARS COV2 PCR INHOUSE NEGATIVE (Negative)
[2024-11-30 22:48] LABS: B Type Natriuretic Peptide 20 pg/mL (<100)
[2024-11-30] MEDS: Norepinephrine Bitartrate/D5W 8 MG/250 ML PLAST..BAG 8.94 MG IVCONT (23:02)
--- NOTE | 2024-11-30 23:03 | PC.NURSE ---
starting levophed. see tim. MD Aleman aware. pt sleepy but arouses to voice and remains oriented. extremities warm, ppp. SpO2 91% on 5L oxymask.
[2024-11-30 23:13] LABS: Alanine Aminotransferase 15 U/L (0-31); Albumin Level 4.1 g/dL (3.5-5.0); Alkaline Phosphatase 69 U/L (39-117); Anion Gap 16 (12-20); Aspartate Amino Transferase 25 U/L (5-31); Bilirubin Direct 0.1 mg/dL (0.0-0.5); Bilirubin Total 0.3 mg/dL (0.0-1.0); Blood Urea Nitrogen 20 mg/dL (9-16); Calcium 10.2 mg/dL (8.4-10.2); Carbon Dioxide 30 mmol/L (22-29); Chloride 99 mmol/L (96-108); Creatinine Clr Calc Pharmacy 42.3; Estimated Glomerular Filt Rate 36; Glucose Random 123 mg/dL (60-115); Potassium 3.5 mmol/L (3.3-5.1); Sodium 141 mmol/L (135-145); Total Protein 7.3 g/dL (6.5-8.0)
[2024-11-30 23:54] LABS: Reflex Lactate? Lactic Acid Added
[2024-12-01] VITALS (27 sets, daily range): BP systolic 110–165; BP diastolic 49–81; PULSE 66–110; RESP 12–26; TEMP 36.1–36.6; O2SAT 91–96; BMI 41.4
--- NOTE | 2024-12-01 00:29 | PC.NURSE ---
pt requires sternal rub to arouse but answers questions appropriately when awake. MD Aleman. observed. repeat VBG and lactic sent
[2024-12-01 00:43] LABS: Venous Blood Gas Refer to POC result
[2024-12-01 00:45] LABS: VBG Base Excess 1.5 mmol/L; VBG HCO3 28 mmol/L (22-26); VBG pCO2 53 mmHg; VBG pH 7.33 (7.32-7.43); VBG pO2 122 mmHg
--- NOTE | 2024-12-01 00:52 | PC.NURSE ---
titrated to 0.1 per MD Aleman
[2024-12-01 00:54] LABS: ~Lactic Acid-LAB USE ONLY 1.8 mmol/L (0.5-2.0)
--- NOTE | 2024-12-01 01:48 | PM.CCHP ---
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 Patient had recently been admitted and discharged from this hospital due to acute hypoxic respiratory failure in the setting of COPD.? She was discharged on 11/19/2024.? Her hospital stay was uneventful and she was discharged within 24 hours of admission. She has come back to the hospital with complaints of shortness of breath, she had stated that she was diagnosed with CHF 24 hours ago and was placed on Lasix, since then she has been feeling lightheaded, dizzy with standing and having purple coloration vision however no other complaints including no cough, fever or chills.? Patient appeared somewhat somnolent, unable to provide a full history.? In the emergency room the patient became hypotensive with the lowest blood pressure in the 70 systolic which did not improve despite of 1.5 L of IV fluids, no further fluids were administered as there was fear the patient would go into heart failure.? The patient was started on pressors.? Her workup reveals a white count of 11.6, hemoglobin 12.9, hematocrit 38.8, platelet count 388.? Sodium 141, potassium 3.5, chloride 99, carbon dioxide 30, anion gap 16, BUN 20, creatinine 1.47 (baseline 0.7.).? Lactic acid 2.6, improved to 1.8.? Respiratory panel negative.? Venous blood gas pH of 7.3, pCO2 53, PO2 122, HC03 28.? Chest x-ray and chest CT both unremarkable for acute pathology. While in the ER, I have had difficulty waking the patient up, she appeared to be pretty obtunded despite of sternal rub, an ABG will be obtained, bladder scan was requested and the patient will be transferred to the ICU for further care given the refractory hypotension despite of IV fluid administration. ? <ORESTES Mcfarland - Last Filed: 12/01/24 19:18> Review of Systems Review of Systems: Yes Unobtainable due to mental status <ORESTES Mcfalrand - Last Filed: 12/01/24 19:18> [facility] Past Medical History Medical History: Medical History Panic disorder Hypertension Chronic hypercapnic respiratory failure Aortic stenosis Obesity (BMI 30-39.9) Asthma Acute exacerbation of chronic obstructive pulmonary disease Chronic lung disease Hypogammaglobulinemia Smoker JUANITO (obstructive sleep apnea) Allergies Elevated troponin COPD (chronic obstructive pulmonary disease) Trigeminal neuralgia Pulmonary nodules Mixed hyperlipidemia Peripheral neuropathy Tobacco use disorder Mood disorder <ORESTES Mcfarland - Last Filed: 12/01/24 19:18> Surgical History Surgical History: Surgical History History of esophagogastroduodenoscopy (EGD) History of colonoscopy History of lumbar discectomy History of tubal ligation History of excision of mass History of shoulder surgery <ORESTES Mcfarland - Last Filed: 12/01/24 19:18> Social History Social History: Social History Household Members: Spouse Housing: Condominium Do you presently have visiting nurse or other home services: Yes Alcohol intake: never Comment: pt steady on feet, refusing all alarms Patient Tobacco Use Status: Former Tobacco user Tobacco use type: Cigarette Cigarette Packs Per Day: 4 Cigarettes Per Day: 80.0 Years Smoked: 40 Smoked in Last 30 Days: No e-Cigarette/Vaping Use: Currently Using Patient Interested in Nicotine Replacement: No Patient Given Instructions on How to Stop Smoking: No Second Hand Smoke Exposure: No Use of substances other than those prescribed or required for medical reasons: No Substance Use Type: Marijuana Currently Displaying Signs/Symptoms of Drug Intoxication Withdrawal: No Have you been hit, kicked, punched, or otherwise hurt by someone within the past year? If so, by whom?: No Do you feel safe in your current relationship?: Yes Is there a partner from a previous relationship who is making you feel unsafe now?: No Are you made to feel afraid or neglected: No Advance Directives: Yes Advance Directives on File: Yes Advance Directives Date on File: 03/09/23 Do you have a plan to hurt others: No Plan Recently lost weight without trying: No Nutrition Risks: No Nutritional Risk Patient : No : No Poor oral hygiene: No service: No <ORESTES Mcfarland - Last Filed: 12/01/24 19:18> Meds Allergies/Adverse reactions: Allergies Allergy/AdvReac Type Severity Reaction Status Date / Time Iodinated Contrast Media (IV Allergy Intermediate HIVES Verified 11/30/24 21:08 CONTRAST) latex (LATEX) Allergy Unknown RASH Verified 11/30/24 21:08 adhesive tape Allergy Rash Verified 11/30/24 21:08 morphine (MORPHINE) AdvReac Unknown VOMITING Verified 11/30/24 21:08 <ORESTES Mcfarland - Last Filed: 12/01/24 19:18> Active Medications: Current Medications Heparin Sodium (Porcine) (Heparin Sodium,Porcine 5,000 Unit/Ml Vial) 5,000 unit SUBCUT Q8H CHAPARRO Norepinephrine Bitartrate (Levophed) 8 mg in 250 mls @ 0 mls/hr IVCONT .Q0M CHAPARRO; Protocol Last Titration: 11/30/24 23:33 Dose: 0.11 mcg/kg/min, 19.68 mls/hr Lactated Ringer's (Lr) 1,000 mls @ 100 mls/hr IVCONT .Q10H CHAPARRO Albumin Human (Kedbumin 25 %) 100 mls @ 133.333 mls/hr IV Q1H CHAPARRO Stop: 12/01/24 03:29 <ORESTES Mcfarland - Last Filed: 12/01/24 19:18> Home medications: Home Medications ?Medication ?Instructions ?Recorded ?Confirmed ?Last Taken ?Type atorvastatin 80 mg tablet 80 mg PO DAILY@199903/04/23 12/01/24 11/29/24 History ddlmgyeogu-rdiugbgqcbxga-kcevnnfd 1 tab PO DAILY MRX1 PRN Migraine 03/04/23 12/01/2424 20:00 History 50 mg-325 mg-40 mg tablet Headache duloxetine 60 mg capsule,delayed 60 mg PO BID@050,199903/04/23 12/01/24 11/29/24 History release gabapentin 300 mg capsule 1,200 mg PO TID@0500,1200,199903/04/23 12/01/24 11/29/24 History hyoscyamine sulfate 0.125 mg tablet 0.25 mg PO Q6H PRN Abdominal 03/04/23 12/01/24 05/21/24 20:00 History Discomfort Oxygen Home Use 04/16/23 10/29/24 10/28/24 History prazosin 2 mg capsule 2 mg PO DAILY@199904/16/23 12/01/24 11/29/24 History albuterol sulfate 90 mcg/actuation 2 puff inhalation Q4H PRN 01/31/24 12/01/24 05/21/24 20:00 History aerosol inhaler Shortness Of Breath Or Wheezing aspirin 81 mg tablet,delayed 81 mg PO DAILY@199905/22/24 12/01/24 11/29/24 History release calcium 600 mg (as 1 tab PO DAILY@199906/20/24 12/01/24 11/29/24 History carbonate)-vitamin D3 5 mcg (200 unit) tablet verapamil 120 mg tablet 120 mg PO BID@499,199907/02/24 12/01/24 11/29/24 History lorazepam 0.5 mg tablet 1 mg PO DAILY PRN MODERATE Anxiety 08/03/24 12/01/24 10/28/24 History baclofen 20 mg tablet 20 mg PO TID@0500,1200,199910/29/24 12/01/24 11/29/24 History ciclopirox 8 % topical solution 1 appl topical DAILY PRN Fungal 10/29/24 12/01/24 10/28/24 History Infection oxycodone 5 mg tablet 5 mg PO BID PRN Severe Pain (Scale 10/29/24 12/01/24 Unknown History Score 7-10) aripiprazole 5 mg tablet 5 mg PO DAILY 12/01/24 12/01/24 11/29/24 History furosemide 20 mg tablet 4 mg PO DAILY 06/20/25 06/20/25 06/18/25 History oxcarbazepine 300 mg tablet 300 mg PO TID 12/01/24 12/01/24 11/29/24 History <ORESTES Mcfarland - Last Filed: 12/01/24 19:18> Physical Exam Vital Signs: Vital Signs: Last Vital Signs Temp 97.9 F 11/30/24 21:12 Pulse 83 12/01/24 00:08 Resp 18 12/01/24 00:08 BP 139/56 L 12/01/24 00:08 Pulse Ox 92 11/30/24 23:47 O2 Del Method Oxymask 11/30/24 23:47 O2 Flow Rate 5 11/30/24 23:47 Oxygen Flow Rate 2 11/30/24 21:02 BMI result Body Mass Index 39.7 <ORESTES Mcfarland - Last Filed: 12/01/24 19:18> General: ?Quite somnolent, difficult to arouse even with a sternal rub, after 3 attempts the patient open her eyes but the fell asleep again. Skin:? Thin, Intact, no lesions, edema, erythema, clubbing or cyanosis.? No ulcers. HEENT:? Head is normocephalic, atraumatic, pupils equal. Buccal mucosa is dry Neck is supple without lymphadenopathy. Cardiac:? Clear S1-S2, no murmurs rubs or gallops. Pulmonary:? Diminished lung sounds bilaterally fine expiratory wheezing bilaterally .? No crackles, rales or rhonchi. Abdomen:? Protuberant, positive bowel sounds in all 4 quadrants.? Soft, nontender, no rebound or guarding.? Musculoskeletal:? Unable to perform range of motion upon request.? Passive range of motion of major joints of the upper and lower extremities reveal no cogwheeling, no crepitus. ?There is no leg edema , no calf tenderness , no leg asymmetry.? Gait not assessed at this point. Neurologic:? As above.? No focal deficits noted. Vascular:? 2+ pulses upper and lower extremities distally.? Less than 2nd capillary refill of fingers and toes bilaterally upper and lower extremities <ORESTES Mcfarland Last Filed: 12/01/24 19:18> Results Labs CBC and Chem 7: 12/01/24 04:48 12/01/24 04:48 <ORESTES Mcfarland Last Filed: 12/01/24 19:18> Labs: Laboratory Results - last 24 hr 11/30/24 11/30/24 11/30/24 21:50 21:54 22:01 MCV 96.0 MCH 31.9 MCHC 33.2 RDW 13.9 Plt Count 388 D MPV 9.3 L Immature Gran % (Auto) 0.5 H Neut % (Auto) 69.0 Lymph % (Auto) 16.4 L [place] % (Auto) 11.0 Eos % (Auto) 2.8 Baso % (Auto) 0.3 Lymph # (Auto) 1.9 [place] # (Auto) 1.3 H Eos # (Auto) 0.3 Baso # (Auto) 0.0 Abs Immat Gran (auto) 0.06 H Absolute Neuts (auto) 8.0 Absolute Nucleated RBC 0.000 Nucleated RBC % (auto) 0.0 VBG pH 7.49 H VBG pCO2 43 VBG pO2 66 VBG HCO3 33 H VBG O2 Saturation 93.0 VBG Base Excess 9.2 Anion Gap 16 Estim Creat Clear Calc 42.3 Estimated GFR 36 Random Glucose 123 H Lactic Acid 2.6 H* Lactic Acid F/U @ 2Hr Calcium 10.2 D Total Bilirubin 0.3 Direct Bilirubin 0.1 AST 25 ALT 15 Alkaline Phosphatase 69 Troponin I High Sens 23.9 H D B-Natriuretic Peptide 20 Total Protein 7.3 Albumin 4.1 Influenza Type A (PCR) NEGATIVE Influenza Type B (PCR) NEGATIVE RSV RNA Qual (PCR) NEGATIVE SARS-CoV-2 RNA (RT-PCR) NEGATIVE 12/01/24 12/01/24 00:25 00:30 MCV MCH MCHC RDW Plt Count MPV Immature Gran % (Auto) Neut % (Auto) Lymph % (Auto) [place] % (Auto) Eos % (Auto) Baso % (Auto) Lymph # (Auto) [place] # (Auto) Eos # (Auto) Baso # (Auto) Abs Immat Gran (auto) Absolute Neuts (auto) Absolute Nucleated RBC Nucleated RBC % (auto) VBG pH 7.33 VBG pCO2 53 VBG pO2 122 VBG HCO3 28 H VBG O2 Saturation 99.0 VBG Base Excess 1.5 Anion Gap Estim Creat Clear Calc Estimated GFR Random Glucose Lactic Acid Lactic Acid F/U @ 2Hr 1.8 Calcium Total Bilirubin Direct Bilirubin AST ALT Alkaline Phosphatase Troponin I High Sens B-Natriuretic Peptide Total Protein Albumin Influenza Type A (PCR) Influenza Type B (PCR) RSV RNA Qual (PCR) SARS-CoV-2 RNA (RT-PCR) <ORESTES Mcfarland - Last Filed: 12/01/24 19:18> Assessment and Plan (1) Hypotension: Status: Acute <ORESTES Mcfarland - Last Filed: 12/01/24 19:18> ASSESSMENT : 1. Refractory hypotension likely due to over-diuresis and retention of antihypertensives in the setting of MAKI 2. Acute kidney injury due over-diuresis, vol depletion and ARB 3. Acute metabolic encephalopathy rule out CO2 retention, hepatic 4. Mild acute respiratory acidosis with hypoxia and hypercarbia state 5. Acute urinary retention rule out UTI 6. Improved acute lactic acidosis and metabolic acidosis due to the above without evidence of sepsis 7. Acute hypovolemia 8. Mild COPD exacerbation 9. Morbid obesity PLAN OF CARE: Patient will be admitted to the ICU, monitor vital signs and I and Os, she is on Levophed she received 1.5 L of IV fluids without much improvement, I do not think she is septic, nor do I think she needs 30 mL/kilos at this point, however I do believe that she needs more IV fluids slowly administered.? We will also give her albumin and try to come down all vasopressor support.? In the meantime we will continue with methylprednisolone, albuterol p.r.n., DuoNebs as scheduled, will give her Zithromax for bronchitis prevention.? The patient does have urinary retention where she has over 550 cc in the bladder per bladder scan and will do a straight cath for now, obtain urinalysis.? If she continues to retain a Amaya catheter will be placed. Given her significant somnolence and metabolic encephalopathy, we will order a arterial blood gas to rule out CO2 retention, ammonia levels. Arterial blood gas shows pH of 7.3, pCO2 58 given her somnolence, we will try her on BiPAP basic settings , titrate FiO2 with a goal O2 sat of 90-92%. Morning update: Blood pressures improved with IV fluids, will stop standing fluids. Will get TTE to look for heart failure. will continue to hold antihypertensives. She was drowsy overnight, now more alert but complaining of dizziness we will get CT head to rule out any intracranial pathology Complains of flank pain, will get CT abdomen and pelvis. Restarted her home psych meds. will transfer her to floor GI PROPHYLAXIS:? IV PPI DVT PROPHYLAXIS:? Heparin subQ t.i.d. Critical care time used for critical evaluation of this patient, diagnosis, treatment and coordination of care, review her records and documentation TOTAL CRITICAL CARE TIME 90 MIN . discussion and coordination with consultants, completely separate from any procedures performed. Patient's care was discussed in detail with Dr. Saunders who is aware of all the above as well as the plan of care for this patient. <ORESTES Mcfarland - Last Filed: 12/01/24 19:18> ASSESSMENT : 1. Refractory hypotension likely due to over-diuresis and retention of antihypertensives in the setting of MAKI 2. Acute kidney injury due over-diuresis, vol depletion and ARB 3. Acute metabolic encephalopathy rule out CO2 retention, hepatic 4. Mild acute respiratory acidosis with hypoxia and hypercarbia state 5. Acute urinary retention rule out UTI 6. Improved acute lactic acidosis and metabolic acidosis due to the above without evidence of sepsis 7. Acute hypovolemia 8. Mild COPD exacerbation 9. Morbid obesity PLAN OF CARE: Patient will be admitted to the ICU, monitor vital signs and I and Os, she is on Levophed she received 1.5 L of IV fluids without much improvement, I do not think she is septic, nor do I think she needs 30 mL/kilos at this point, however I do believe that she needs more IV fluids slowly administered.? We will also give her albumin and try to come down all vasopressor support.? In the meantime we will continue with methylprednisolone, albuterol p.r.n., DuoNebs as scheduled, will give her Zithromax for bronchitis prevention.? The patient does have urinary retention where she has over 550 cc in the bladder per bladder scan and will do a straight cath for now, obtain urinalysis.? If she continues to retain a Amaya catheter will be placed. Given her significant somnolence and metabolic encephalopathy, we will order a arterial blood gas to rule out CO2 retention, ammonia levels. Arterial blood gas shows pH of 7.3, pCO2 58 given her somnolence, we will try her on BiPAP basic settings , titrate FiO2 with a goal O2 sat of 90-92%. Morning update: Blood pressures improved with IV fluids, will stop standing fluids. Will get TTE to look for heart failure. will continue to hold antihypertensives. She was drowsy overnight, now more alert but complaining of dizziness we will get CT head to rule out any intracranial pathology Complains of flank pain, will get CT abdomen and pelvis. Restarted her home psych meds. will transfer her to floor GI PROPHYLAXIS:? IV PPI DVT PROPHYLAXIS:? Heparin subQ t.i.d. Critical care time used for critical evaluation of this patient, diagnosis, treatment and coordination of care, review her records and documentation TOTAL CRITICAL CARE TIME 60?? MIN . discussion and coordination with consultants, completely separate from any procedures performed. Patient's care was discussed in detail with Dr. Saunders who is aware of all the above as well as the plan of care for this patient. <Murphy Saunders MD - Last Filed: 12/01/24 09:21> Total time managing care of this patient today: 60 minutes. <Murphy Saunders MD - Last Filed: 12/01/24 09:21>
[2024-12-01 01:53] LABS: ABG Base Excess 1.7 mmol/L; ABG HCO3 28 mmol/L (22-26); ABG pCO2 54 mmHg (32-45); ABG pH 7.32 (7.35-7.45); ABG pO2 79 mmHg (83-108)
--- NOTE | 2024-12-01 02:01 | PC.NURSE ---
initial bladder scanned 555mL. straight cath'd about 500mL per PA Raoul. no post void scan done. urine sent to lab
[2024-12-01 02:16] LABS: Appearance Urine Clear; Color Urine Yellow; Glucose Urine UA Negative (Negative); Leukocyte Esterase Urine Negative (Negative); Nitrite Urine Negative (Negative); PH 6.5 (5.0-9.0); Specific Gravity - Urine <= 1.005 (1.005-1.025); Urine Blood Negative (Negative); Urine Ketones Negative (Negative); Urine Protein Negative (Neg-Trace)
[2024-12-01 02:18] LABS: Alanine Aminotransferase 14 U/L (0-31); Albumin Level 4.3 g/dL (3.5-5.0); Alkaline Phosphatase 72 U/L (39-117); Anion Gap 16 (12-20); Aspartate Amino Transferase 23 U/L (5-31); Bilirubin Total 0.3 mg/dL (0.0-1.0); Blood Urea Nitrogen 20 mg/dL (9-16); Calcium 9.9 mg/dL (8.4-10.2); Carbon Dioxide 25 mmol/L (22-29); Chloride 105 mmol/L (96-108); Creatinine Clr Calc Pharmacy 46.8; Estimated Glomerular Filt Rate 41; Glucose Random 209 mg/dL (60-115); Potassium 3.8 mmol/L (3.3-5.1); Sodium 142 mmol/L (135-145); Total Protein 7.5 g/dL (6.5-8.0)
[2024-12-01] MEDS: Albumin Human 25 % 100 ML 133.33 ML IV ×2 (02:50→03:45)
[2024-12-01] MEDS: Lactated Ringers 1,000 ML 100 ML IVCONT (02:50)
[2024-12-01] MEDS: Heparin Sodium,Porcine 5,000 UNIT/ML VIAL 5000 UNIT SUBCUT ×2 (02:50→10:35)
[2024-12-01 02:58] LABS: ABG Refer to POC result
[2024-12-01 03:37] LABS: Ammonia 29 umol/L (13-55)
[2024-12-01 04:54] LABS: VBG Base Excess 2.9 mmol/L; VBG HCO3 28 mmol/L (22-26); VBG pCO2 46 mmHg; VBG pH 7.39 (7.32-7.43); VBG pO2 83 mmHg
--- NOTE | 2024-12-01 04:56 | HE.ICUCC ---
ICU Critical Care Nursing Note Patient admitted to ICU for pressor support. BP in the 70's systolic/ Levophed initiated ICU Day #:1 Neuro: Patient A&Ox2 to person/place, confused on day/date Cardiac: NSR on telemetry Resp: LS exp/ins wheezes to upper lobes/dim bases. GI/: +BSx4 , difficulty urinating /str cathed in ed Integumentary/Musculoskeletal:skin intact/redness to buttocks/blanchable, left groin fungal rash. Central Lines:Bilateral peripheral IV's 20G
[2024-12-01 05:29] LABS: Basophils Percent Auto 0.2 % (0-2); Eosinophils Percent Auto 0.1 % (0-4); Hematocrit 35.8 % (37.0-47.0); Hemoglobin 11.3 g/dl (12.0-16.0); Imm Gran Abs Auto 0.05 X10*3/uL (0.00-0.03); Imm Gran Pct Auto 0.4 % (0.0-0.4); Lymphocytes Absolute Auto 0.3 X10*3/uL (1.2-4.9); Lymphocytes Percent Auto 2.5 % (20-40); MANUAL DIFF FLAG SCAN; Mean Corpuscular HGB Conc 31.6 g/dl (31.0-35.0); Mean Corpuscular Hemoglobin 31.5 pg (27.0-33.0); Mean Corpuscular Volume 99.7 fL (80.0-98.0); Mean Platelet Volume 9.4 fL (9.4-12.3); Monocytes Absolute Auto 0.1 X10*3/uL (0.1-1.2); Monocytes Percent Auto 1.1 % (2-11); Neutrophils Absolute Auto 11.8 x10*3/uL (2.0-8.3); Neutrophils Percent Auto 95.7 % (45-73); Platelet Count 338 X10*3/uL (160-400); Red Blood Count 3.59 X10*6/uL (4.20-5.50); Red Cell Distribution Width 13.9 % (11.0-16.0); SCAN SMEAR FLAG 1; White Blood Count 12.3 X10*3/uL (4.8-10.8)
[2024-12-01 05:44] LABS: Alanine Aminotransferase 14 U/L (0-31); Albumin Level 4.7 g/dL (3.5-5.0); Alkaline Phosphatase 57 U/L (39-117); Anion Gap 16 (12-20); Aspartate Amino Transferase 21 U/L (5-31); Bilirubin Total 0.2 mg/dL (0.0-1.0); Blood Urea Nitrogen 17 mg/dL (9-16); Calcium 9.5 mg/dL (8.4-10.2); Carbon Dioxide 26 mmol/L (22-29); Chloride 105 mmol/L (96-108); Creatinine Clr Calc Pharmacy 58.5; Estimated Glomerular Filt Rate 51; Glucose Random 171 mg/dL (60-115); Magnesium 2.2 mg/dL (1.6-2.6); Phosphorus 2.5 mg/dL (2.7-4.5); Potassium 3.9 mmol/L (3.3-5.1); Sodium 143 mmol/L (135-145); Total Protein 7.2 g/dL (6.5-8.0)
[2024-12-01] MEDS: methylPREDNISolone Sod Succ 40 MG VIAL IVPUSH (05:51)
[2024-12-01 06:06] LABS: Venous Blood Gas Refer to POC result
[2024-12-01 06:12] LABS: SLIDE REVIEW VERIFIED
[2024-12-01] MEDS: Albuterol/Iprat 2.5/0.5MG 3 ML AMPUL.NEB INHALE ×3 (07:46→18:50)
--- NOTE | 2024-12-01 09:05 | PHA.MEDREC ---
Addendum entered by Giovanni Calzada 12/01/24 12:11: Spoke back with pt to confirm Furosemide; Claims shows pt got Furosemide 20mg tabs 11/29 QTY 30 for 15 days, in recent DC packet pt 11/19 pt was taking Furosemide 20mg QD. Pt confirmed she is now taking the Furosemide 20mg 2 tabs (40mg) daily. Addendum entered by Pete Hall RPh 12/01/24 10:05: med rec checked by [facility] Original Note: Pharmacy Consult ? Medication Reconciliation Pharmacy has completed the medication reconciliation. Spoke with pt and she confirmed her most recent discharge (11/19 was up to date and she finished the antibiotic and steroid regimens; I called [facility] and the confirmed the pt picked up the Cefuroxime on 11/19 but the Prednisone was never filled for the pt for some reason. Pt confirmed her Ariprazole stating that recently increased from 2mg to 5mg tabs. She also confirmed her Oxycarbazepine 300mg tab had recently changed from BID to TID.
--- NOTE | 2024-12-01 10:30 | MHC.CM.PN ---
CM MET WITH PT AT BEDSIDE IN ICU. PT IS TEARFUL, CM OFFERED SUPPORT WITH +EFFECT. PT LIVES WITH SPOUSE AND USES WALKER WHEN SHE GOES OUTSIDE. 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 + HCP ON FILE AND PCP DR. GIANLUCA BRITO. DP: HOME WITH RESUMPTION OF [facility]. RETURN REFERRAL SENT VIA [facility]. PT'S SPOUSE WILL TRANSPORT. CM WILL CONTINUE TO FOLLOW FOR ANY CHANGE TO DC PLAN/NEEDS.
[2024-12-01] MEDS: oxyCODONE HCl Immed Release 5 MG TABLET PO ×2 (10:36→20:29)
[2024-12-01] MEDS: Roflumilast 500 MCG TABLET PO (10:36)
--- NOTE | 2024-12-01 12:00 | CA_ITS ---
Transthoracic Echocardiogram Patient (Last, First, Middle): Zulma Alves R Gender: Female Date of : 1965 Age: 59 Procedure Date: 12/01/2024 Procedure Type: Transthoracic Echocardiogram Location: ICU Height: 154.94 cm Weight: 99.34 kg BSA: 1.96 m2 Heart Rate: bpm BP: 134 / 60 mmHg Mission Support Specialist: Referring MD: Murphy Saunders MD Symptoms: CHF Study Quality: Adequate with Contrast ECG Rhythm: Sinus Conclusions: - Normal left ventricular cavity size. The left ventricular systolic function is hyperdynamic. The visually estimated ejection fraction is >70%. - Normal right ventricular cavity size and systolic function. - There is moderate aortic valve stenosis. - There is a small pericardial effusion. Findings Left Ventricle Normal left ventricular cavity size. The left ventricular systolic function is hyperdynamic. The visually estimated ejection fraction is >70%. There is no evidence of regional wall motion abnormalities. Abnormal diastolic function is noted. Spectral Doppler is indicative of an impaired relaxation filling pattern. E/E prime ratio is between 8 and 15 consistent with indeterminate filling pressures. Right Ventricle Normal right ventricular cavity size and systolic function. Atria The left atrium is normal in size. The right atrium is normal in size. Aortic Valve The aortic valve was not well visualized. There is moderate aortic valve stenosis. The peak aortic velocity is 3.00 m/s. The mean gradient is 15 mmHg. There is no aortic valve regurgitation. Mitral Valve The mitral valve was not well visualized. There is no mitral valve regurgitation. There is no mitral valve stenosis. Pulmonic Valve The pulmonic valve was not well visualized. Tricuspid Valve Likely normal tricuspid valve structure and function. Significantly elevated right atrial pressure. Mild pulmonary hypertension is present. Great Vessels All visible segments of the aorta are normal in size. Venous The inferior vena cava is mildly dilated and collapses less than 50% with inspiration. Pericardium/Pleural There is a small pericardial effusion. There are no definitive echocardiographic findings of tamponade physiology. Prior Study Comparison Changes noted compared to prior study dated: 08/07/2024. Moderate , small pericardial effusion, mild pulmonary hypertension. Measurements 2D Linear Measurements IVSd: 1.32 0.6-0.9/0.6-1.0 cm LVIDd: 3.58 3.9-5.3/4.2-5.9 cm LVIDd Index: 1.83 2.4-3.2/2.2-3.1 cm/m2 LVIDs: 2.36 2.0-3.6 cm LVPWd: 1.34 0.7-1.1 cm Ao Root: 3.10 2.1-3.5 cm LA Diam: 4.30 2.7-3.8/3.0-4.0 cm LAIDs Index: 2.19 1.5-2.3 cm/m2 LV Mass: 204.97 67-162/88-224 g LV Mass Index: 104.58 43-95/49-115 g/m2 LVOT Diam: 2.00 3.0+(-)1.3 cm Mitral Valve MV Pk E: 0.90 MV PK A: 1.31 MV Decel Time: 183.00 E/A: 0.70 E'Lateral: 8.59 E'Medial: 6.53 E/E' Med: 13.70 E/E' Lat: 10.40 PHT: 54.00 MVA PHT: 4.07 Decel [place]: 4.89 Aortic Valve AoV Pk Griffin: 3.00 AoV Mn Griffin: 1.73 AoV VTI: 0.56 AoV Pk Grad: 36.00 Aov Mn Grad: 15.00 PERICO Cont.VTI: 1.97 LVOT LVOT Pk Griffin: 1.53 LVOT Mn Griffin: 1.11 LVOT VTI: 0.35 LVOT Pk Grad: 9.00 LVOT Mn Grad: 6.00 LVOT Diam: 2.00 LVOT Area: 3.14 Diastolic Function MV Pk E: 0.90 MV Pk A: 1.31 E/A: 0.70 E'Medial: 6.53 E/E' Med: 13.70 E' Laterial: 8.59 E/E' Lat: 10.40 Right Ventricle TAPSE (mm): 36.00 TVS' Griffin: 18.00 Tricuspid Valve TR Pk Griffin: 3.22 TR Pk Grad: 41.00 RA Press: 3.00 RVSP: 44.00 Great Vessels Aorta Ao Root-2D: 3.10 2.0-3.7 cm Ao Asc: 2.70 2.1-3.4 cm Pulmonary Valve PV Pk Griffin: 1.30 Peak PV Grad: 7.00 Updated in Other Vendor System with Status of Final Eladio Nelson MD electronically signed on 12/01/2024 8:36:01 PM with status of Final
[2024-12-01] MEDS: Nystatin Powder 15 GM BOTTLE 1 APPL TOPICAL (12:19)
[2024-12-01] MEDS: ARIPiprazole 5 MG TABLET PO (12:20)
[2024-12-01] MEDS: OXcarbazepine 300 MG TABLET PO ×2 (12:20→20:28)
[2024-12-01] MEDS: Gabapentin 400 MG CAPSULE 1200 MG PO ×2 (12:23→20:42)
[2024-12-01] MEDS: Baclofen 20 MG TABLET PO ×2 (12:24→20:42)
[2024-12-01 18:06] LABS: Amphetamine Screen Urine Not Detected (Not Detect); Barbiturates, Urine Not Detected (Not Detect); Benzodiazepines Screen Urine Not Detected (Not Detect); Buprenorphine Scr Not Detected (Not Detect); Cannabinoid Screen Urine POSITIVE (Not Detect); Cocaine Screen Urine Not Detected (Not Detect); Fentanyl, urine Not Detected (Not Detect); Methadone Screen, Urine Not Detected (Not Detect); Opiate Screen Urine Not Detected (Not Detect); Oxycodone Screen Urine Positive (Not Detect); Phencyclidine Screen Urine Not Detected (Not Detect)
[2024-12-01] MEDS: Aspirin Enteric Coated 81 MG TABLET.DR PO (20:29)
[2024-12-01] MEDS: Prazosin HCL 1 MG CAPSULE 2 MG PO (20:29)
[2024-12-01] MEDS: Atorvastatin Calcium 80 MG TABLET PO (20:29)
[2024-12-01] MEDS: DULoxetine HCl 60 MG CAPSULE.DR PO (20:42)
[2024-12-01] MEDS: Azithromycin 500 MG in 0.9 % Sodium Chloride 250 ML 125 MG IV (20:43)
[2024-12-01] MEDS: LORazepam 0.5 MG TABLET PO (22:55)
[2024-12-02] VITALS (12 sets, daily range): BP systolic 111–175; BP diastolic 56–76; PULSE 56–90; RESP 16–20; TEMP 36.3–36.7; O2SAT 92–98
[2024-12-02] MEDS: Calcium Carbonate 750 MG TAB.CHEW PO (00:36)
[2024-12-02] MEDS: Albuterol/Iprat 2.5/0.5MG 3 ML AMPUL.NEB INHALE ×5 (01:11→23:39)
[2024-12-02] MEDS: Gabapentin 400 MG CAPSULE 1200 MG PO ×3 (06:17→20:21)
[2024-12-02] MEDS: Baclofen 20 MG TABLET PO ×3 (06:18→20:20)
[2024-12-02] MEDS: DULoxetine HCl 60 MG CAPSULE.DR PO ×2 (06:18→20:20)
[2024-12-02] MEDS: OXcarbazepine 300 MG TABLET PO ×2 (06:18→20:20)
[2024-12-02] MEDS: amLODIPine Besylate 2.5 MG TABLET PO (06:18)
[2024-12-02] MEDS: predniSONE 20 MG TABLET 40 MG PO (08:34)
[2024-12-02] MEDS: Benzonatate 100 MG CAPSULE PO (08:34)
[2024-12-02] MEDS: Roflumilast 500 MCG TABLET PO (08:34)
[2024-12-02] MEDS: oxyCODONE HCl Immed Release 5 MG TABLET PO ×2 (08:34→20:21)
[2024-12-02] MEDS: ARIPiprazole 5 MG TABLET PO (08:34)
[2024-12-02] MEDS: Enoxaparin Sodium 40 MG/0.4 ML SYRINGE SUBCUT (08:35)
--- NOTE | 2024-12-02 12:16 | HO.PM.IMPN ---
Subjective Subjective Date of Service: 12/02/24 Interval History: f/u shock with hypotension Physical Exam Vital Signs: Vital Signs: Last Vital Signs Temp 97.6 F 12/02/24 11:55 Pulse 78 12/02/24 11:55 Resp 20 12/02/24 11:55 BP 132/70 12/02/24 11:55 Pulse Ox 98 12/02/24 11:55 O2 Del Method Nasal Cannula 12/02/24 11:55 O2 Flow Rate 2 12/02/24 11:55 FiO2 28 12/01/24 08:00 Oxygen Flow Rate 28 12/01/24 01:29 BMI result Body Mass Index 41.4 General: AO X 3, no acute distress Resp: CTA bilateral, no accessory muscles used CVS: S1,S2,RRR GI: soft, non tender, non distended Neuro: motor grossly intact, alert Psych: appropriate affect, appropriate insight Const: Other: General: AO X 3, no acute distress Resp: CTA bilateral CVS: S1,S2,RRR GI: +BS, NT, no distention Skin: No rash Neuro: motor grossly intact Psych: appropriate affect Objective Data Active Medications Albuterol Sulfate (Albuterol Sulfate (0.083%) 2.5 Mg/3 Ml Vial.Neb) 2.5 mg INHALE Q3H PRN PRN Reason: Wheezing Albuterol/Ipratropium (Albuterol/Iprat 2.5/0.5mg 3 Ml Ampul.Neb) 3 ml INHALE Q6H [facility] Last Admin: 12/02/24 11:31 Dose: 3 ml Documented By: MARYLU Aripiprazole (Aripiprazole 5 Mg Tablet) 5 mg PO DAILY [facility] Last Admin: 12/02/24 08:34 Dose: 5 mg Documented By: SHAHZAD Aspirin (Aspirin Enteric Coated 81 Mg Tablet.) 81 mg PO DAILY@1999 [facility] Last Admin: 12/01/24 20:29 Dose: 81 mg Documented By: GINNY Atorvastatin Calcium (Atorvastatin Calcium 80 Mg Tablet) 80 mg PO DAILY@1999 [facility] Last Admin: 12/01/24 20:29 Dose: 80 mg Documented By: GINNY Baclofen (Baclofen 20 Mg Tablet) 20 mg PO TID@0500,1200,1999 [facility] Last Admin: 12/02/24 12:15 Dose: 20 mg Documented By: SHAHZAD Benzonatate (Benzonatate 100 Mg Capsule) 100 mg PO TID PRN PRN Reason: Cough Last Admin: 12/02/24 08:34 Dose: 100 mg Documented By: SHAHZAD Duloxetine HCl (Duloxetine Hcl 60 Mg Capsule.Dr) 60 mg PO BID@499,1999 [facility] Last Admin: 12/02/24 06:18 Dose: 60 mg Documented By: GINNY Enoxaparin Sodium (Enoxaparin Sodium 40 Mg/0.4 Ml Syringe) 40 mg SUBCUT DAILY [facility] Last Admin: 12/02/24 08:35 Dose: 40 mg Documented By: SHAHZAD Gabapentin (Gabapentin 400 Mg Capsule) 1,200 mg PO TID@499,1199,1999 [facility] Last Admin: 12/02/24 12:15 Dose: 1,200 mg Documented By: SHAHZAD Azithromycin 500 mg/ Sodium (Chloride) 250 mls @ 125 mls/hr IV Q24H [facility] Last Infusion: 12/01/24 22:43 Dose: Infused Documented By: GINNY Nystatin (Nystatin Powder 15 Gm Bottle) 1 appl TOPICAL BID [facility]; Protocol Last Admin: 12/02/24 08:38 Dose: Not Given Documented By: SHAHZAD Non-Admin Reason: Patient Refused Oxcarbazepine (Oxcarbazepine 300 Mg Tablet) 300 mg PO BID [facility] Last Admin: 12/02/24 06:18 Dose: 300 mg Documented By: GINNY Oxycodone HCl (Oxycodone Hcl Immed Release 5 Mg Tablet) 5 mg PO BID PRN PRN Reason: Severe Pain (Scale Score 7-10) Last Admin: 12/02/24 08:34 Dose: 5 mg Documented By: SHAHZAD Prazosin HCl (Prazosin Hcl 1 Mg Capsule) 2 mg PO DAILY@1999 [facility]; Protocol Last Admin: 12/01/24 20:29 Dose: 2 mg Documented By: GINNY Prednisone (Prednisone 20 Mg Tablet) 40 mg PO DAILY [facility] Last Admin: 12/02/24 08:34 Dose: 40 mg Documented By: SHAHZAD Roflumilast (Roflumilast 500 Mcg Tablet) 500 mcg PO DAILY [facility] Last Admin: 12/02/24 08:34 Dose: 500 mcg Documented By: SHAHZAD Labs 12/01/24 04:48 12/01/24 04:48 Labs: Laboratory Results - last 24 hr 12/01/24 17:45 Urine Opiates Screen Not Detected Ur Buprenorphine Scrn Not Detected Ur Oxycodone Screen Positive H Urine Methadone Screen Not Detected Urine Fentanyl Screen Not Detected Ur Barbiturates Screen Not Detected Ur Phencyclidine Scrn Not Detected Ur Amphetamines Screen Not Detected U Benzodiazepines Scrn Not Detected Urine Cocaine Screen Not Detected U Marijuana (THC) Screen POSITIVE H Microbiology Microbiology Results: Microbiology 11/30/24 21:56 Blood Culture - Preliminary Blood - Venous No growth after 24 hours. 11/30/24 21:50 Blood Culture - Preliminary Blood - Venous No growth after 24 hours. Assessment and Plan (1) Hypoxia: Status: Acute Assessment and Plan: 59F [facility] chronic hypoxemic respiratory failure due to COPD on 2-3 L supplemental oxygen at baseline, hypertension, mixed hyperlipidemia, history of CVA, trigeminal neuralgia, mood disorder, lower extremity edema who presented to the emergency department for evaluation of dyspnea, chest pain and dizziness. Was recently prescribed Lasix for CHF. On [id number] BP 50s/30s by EMS, had MAKI with Cr 1.47. Patient was admitted briefly to the ICU and required vasopressor Hypotension likely d/t BP meds and Lasix, required vasopressor. verapamil, losartan and Lasix on hold HTN BP presently normal, hold mes and start Norvasc in the morning history of CVA/mixed hyperlipidemia On aspirin and statin COPD possible acute exacerbation continue inhalers ans Prednisone Trigeminal neuralgia baclofen, trileptal, Neurontin and Cymbalta. Mood disorder: contineu home meds Morbid obesity weight loss advised dvt prophylaxis - lovenox full code reason for continued hospitalization: dispo planning Quality Stroke Does the patient have a stroke diagnosis?: No VTE Prior VTE?: No VTE Risk Level:: Medical - moderate - high VTE Device Contraindication: N/A - Device Ordered VTE Drug Contraindication: N/A - Med Ordered
[2024-12-02] MEDS: Prazosin HCL 1 MG CAPSULE 2 MG PO (20:20)
[2024-12-02] MEDS: Aspirin Enteric Coated 81 MG TABLET.DR PO (20:21)
[2024-12-02] MEDS: Atorvastatin Calcium 80 MG TABLET PO (20:22)
[2024-12-02] MEDS: Azithromycin 500 MG in 0.9 % Sodium Chloride 250 ML 125 MG IV (20:25)
[2024-12-02] MEDS: Nystatin Powder 15 GM BOTTLE 1 APPL TOPICAL (20:36)
[2024-12-03] VITALS (9 sets, daily range): BP systolic 135–172; BP diastolic 58–80; PULSE 54–92; RESP 16–18; TEMP 36.3–36.7; O2SAT 94–97
[2024-12-03] MEDS: Albuterol/Iprat 2.5/0.5MG 3 ML AMPUL.NEB INHALE ×3 (05:26→20:58)
[2024-12-03] MEDS: Gabapentin 400 MG CAPSULE 1200 MG PO ×3 (05:27→21:00)
[2024-12-03] MEDS: Baclofen 20 MG TABLET PO ×3 (05:27→21:00)
[2024-12-03] MEDS: DULoxetine HCl 60 MG CAPSULE.DR PO ×2 (05:27→21:00)
[2024-12-03] MEDS: amLODIPine Besylate 2.5 MG TABLET PO (05:28)
[2024-12-03] MEDS: OXcarbazepine 300 MG TABLET PO ×2 (05:28→21:01)
[2024-12-03] MEDS: Roflumilast 500 MCG TABLET PO ×2 (08:09→08:18)
[2024-12-03] MEDS: predniSONE 20 MG TABLET 40 MG PO ×2 (08:10→08:18)
[2024-12-03] MEDS: ARIPiprazole 5 MG TABLET PO ×2 (08:10→08:19)
[2024-12-03] MEDS: Enoxaparin Sodium 40 MG/0.4 ML SYRINGE SUBCUT ×2 (08:10→08:19)
[2024-12-03] MEDS: oxyCODONE HCl Immed Release 5 MG TABLET PO ×2 (08:29→21:04)
[2024-12-03] MEDS: Nystatin Powder 15 GM BOTTLE 1 APPL TOPICAL (11:24)
[2024-12-03] MEDS: VerapamiL HCL 120 MG TABLET PO ×2 (11:28→21:02)
--- NOTE | 2024-12-03 12:31 | HO.PM.IMPN ---
Subjective Subjective Date of Service: 12/03/24 Interval History: f/u on icu care for shock/hypotension likely from combo of bp meds and Lasix hypotension resolved, bp trending up and has been restarted on some home meds Physical Exam Vital Signs: Vital Signs: Last Vital Signs Temp 97.4 F 12/03/24 11:15 Pulse 88 12/03/24 11:25 Resp 18 12/03/24 11:25 BP 160/58 H 12/03/24 11:15 Pulse Ox 95 12/03/24 11:15 O2 Del Method Nasal Cannula 12/03/24 11:15 O2 Flow Rate 1 12/03/24 11:15 FiO2 28 12/01/24 08:00 Oxygen Flow Rate 28 12/01/24 01:29 BMI result Body Mass Index 41.4 General: AO X 3, no acute distress Resp: CTA bilateral, no accessory muscles used CVS: S1,S2,RRR GI: soft, non tender, non distended Neuro: motor grossly intact, alert Psych: appropriate affect, appropriate insight Const: Other: General: AO X 3, no acute distress Resp: CTA bilateral CVS: S1,S2,RRR GI: +BS, NT, no distention Skin: No rash Neuro: motor grossly intact Psych: appropriate affect Objective Data Active Medications Albuterol Sulfate (Albuterol Sulfate (0.083%) 2.5 Mg/3 Ml Vial.Neb) 2.5 mg INHALE Q3H PRN PRN Reason: Wheezing Albuterol/Ipratropium (Albuterol/Iprat 2.5/0.5mg 3 Ml Ampul.Neb) 3 ml INHALE Q6H [facility] Last Admin: 12/03/24 11:23 Dose: 3 ml Documented By: MARYLU Aripiprazole (Aripiprazole 5 Mg Tablet) 5 mg PO DAILY [facility] Last Admin: 12/03/24 08:19 Dose: 5 mg Documented By: NATALI Aspirin (Aspirin Enteric Coated 81 Mg Tablet.) 81 mg PO DAILY@1999 [facility] Last Admin: 12/02/24 20:21 Dose: 81 mg Documented By: GINNY Atorvastatin Calcium (Atorvastatin Calcium 80 Mg Tablet) 80 mg PO DAILY@1999 [facility] Last Admin: 12/02/24 20:22 Dose: 80 mg Documented By: GINNY Baclofen (Baclofen 20 Mg Tablet) 20 mg PO TID@0500,1200,1999 [facility] Last Admin: 12/03/24 11:38 Dose: 20 mg Documented By: NATALI Benzonatate (Benzonatate 100 Mg Capsule) 100 mg PO TID PRN PRN Reason: Cough Last Admin: 12/02/24 08:34 Dose: 100 mg Documented By: SHAHZAD Duloxetine HCl (Duloxetine Hcl 60 Mg Capsule.) 60 mg PO BID@ [facility] Last Admin: 12/03/24 05:27 Dose: 60 mg Documented By: GINNY Enoxaparin Sodium (Enoxaparin Sodium 40 Mg/0.4 Ml Syringe) 40 mg SUBCUT DAILY [facility] Last Admin: 12/03/24 08:19 Dose: 40 mg Documented By: NATALI Gabapentin (Gabapentin 400 Mg Capsule) 1,200 mg PO TID@0500,1199,1999 [facility] Last Admin: 12/03/24 11:38 Dose: 1,200 mg Documented By: NATAIL Azithromycin 500 mg/ Sodium (Chloride) 250 mls @ 125 mls/hr IV Q24H [facility] Last Infusion: 12/02/24 22:44 Dose: Infused Documented By: GINNY Patient Own Med ( Hyoscyamine Sulfate 0.125 Mg Tablet) 0.25 mg PO Q6H PRN PRN Reason: Abdominal Discomfort Nystatin (Nystatin Powder 15 Gm Bottle) 1 appl TOPICAL BID [facility]; Protocol Last Admin: 12/03/24 11:24 Dose: 1 appl Documented By: NATALI Oxcarbazepine (Oxcarbazepine 300 Mg Tablet) 300 mg PO BID [facility] Last Admin: 12/03/24 05:28 Dose: 300 mg Documented By: GINNY Oxycodone HCl (Oxycodone Hcl Immed Release 5 Mg Tablet) 5 mg PO BID PRN PRN Reason: Severe Pain (Scale Score 7-10) Last Admin: 12/03/24 08:29 Dose: 5 mg Documented By: NATALI Prazosin HCl (Prazosin Hcl 1 Mg Capsule) 2 mg PO DAILY@1999 [facility]; Protocol Last Admin: 12/02/24 20:20 Dose: 2 mg Documented By: HO.N-DESSK Prednisone (Prednisone 20 Mg Tablet) 40 mg PO DAILY [facility] Last Admin: 12/03/24 08:18 Dose: 40 mg Documented By: NATALI Roflumilast (Roflumilast 500 Mcg Tablet) 500 mcg PO DAILY [facility] Last Admin: 12/03/24 08:18 Dose: 500 mcg Documented By: NATALI Verapamil HCl (Verapamil Hcl 120 Mg Tablet) 120 mg PO BID@0500,2000 [facility]; Protocol Last Admin: 12/03/24 11:28 Dose: 120 mg Documented By: NATALI Labs 12/01/24 04:48 12/01/24 04:48 Labs: Laboratory Results - last 24 hr 12/01/24 17:45 Urine Opiates Screen Not Detected Ur Buprenorphine Scrn Not Detected Ur Oxycodone Screen Positive H Urine Methadone Screen Not Detected Urine Fentanyl Screen Not Detected Ur Barbiturates Screen Not Detected Ur Phencyclidine Scrn Not Detected Ur Amphetamines Screen Not Detected U Benzodiazepines Scrn Not Detected Urine Cocaine Screen Not Detected U Marijuana (THC) Screen POSITIVE H Microbiology Microbiology Results: Microbiology 11/30/24 21:56 Blood Culture - Preliminary Blood - Venous No growth after 48 hours. 11/30/24 21:50 Blood Culture - Preliminary Blood - Venous No growth after 48 hours. Assessment and Plan (1) Hypoxia: Status: Acute Assessment and Plan: 59F [facility] chronic hypoxemic respiratory failure due to COPD on 2-3 L supplemental oxygen at baseline, hypertension, mixed hyperlipidemia, history of CVA, trigeminal neuralgia, mood disorder, lower extremity edema who presented to the emergency department for evaluation of dyspnea, chest pain and dizziness. Was recently prescribed Lasix for CHF. On [id number] BP 50s/30s by EMS, had MAKI with Cr 1.47. Patient was admitted briefly to the ICU and required vasopressor Hypotension likely d/t BP meds and Lasix, required vasopressor. BP now on higher side restart verapamil 120 bid. Hold losartan and Lasix for now HTN see above history of CVA/mixed hyperlipidemia On aspirin and statin COPD possible acute exacerbation continue inhalers and Prednisone x 5 days, ending 12/06 Trigeminal neuralgia baclofen, trileptal, Neurontin and Cymbalta. Mood disorder: contineu home meds Morbid obesity weight loss advised dvt prophylaxis - lovenox full code reason for continued hospitalization: dispo planning Quality Stroke Does the patient have a stroke diagnosis?: No VTE Prior VTE?: No VTE Risk Level:: Medical - moderate - high VTE Device Contraindication: N/A - Device Ordered VTE Drug Contraindication: N/A - Med Ordered
[2024-12-03] MEDS: Aspirin Enteric Coated 81 MG TABLET.DR PO (20:59)
[2024-12-03] MEDS: Atorvastatin Calcium 80 MG TABLET PO (20:59)
[2024-12-03] MEDS: Prazosin HCL 1 MG CAPSULE 2 MG PO (21:00)
[2024-12-03] MEDS: Azithromycin 500 MG in 0.9 % Sodium Chloride 250 ML 125 MG IV (21:03)
[2024-12-03] MEDS: LORazepam 0.5 MG TABLET PO (21:05)
[2024-12-03] MEDS: Calcium Carbonate 750 MG TAB.CHEW PO (23:01)
[2024-12-04] VITALS (10 sets, daily range): BP systolic 110–156; BP diastolic 52–72; PULSE 74–110; RESP 16–20; TEMP 35.9–37.2; O2SAT 93–97
[2024-12-04] MEDS: Albuterol/Iprat 2.5/0.5MG 3 ML AMPUL.NEB INHALE ×4 (05:37→23:59)
[2024-12-04] MEDS: Baclofen 20 MG TABLET PO ×3 (05:41→20:55)
[2024-12-04] MEDS: DULoxetine HCl 60 MG CAPSULE.DR PO ×2 (05:41→20:56)
[2024-12-04] MEDS: Gabapentin 400 MG CAPSULE 1200 MG PO ×3 (05:41→20:56)
[2024-12-04] MEDS: OXcarbazepine 300 MG TABLET PO ×2 (05:43→20:55)
[2024-12-04] MEDS: VerapamiL HCL 120 MG TABLET PO ×2 (05:51→20:56)
[2024-12-04] MEDS: Valsartan 80 MG TABLET PO (12:35)
[2024-12-04] MEDS: Nystatin Powder 15 GM BOTTLE 1 APPL TOPICAL ×2 (12:36→20:59)
[2024-12-04] MEDS: oxyCODONE HCl Immed Release 5 MG TABLET PO ×2 (12:41→20:57)
--- NOTE | 2024-12-04 12:50 | HO.PM.IMPN ---
Subjective Subjective Date of Service: 12/04/24 Interval History: f/u on icu care for shock/hypotension likely from combo of bp meds and Lasix hypotension resolved, bp trending up and has been restarted on 2 BP meds, Physical Exam Vital Signs: Vital Signs: Last Vital Signs Temp 98.9 F 12/04/24 10:59 Pulse 110 H 12/04/24 12:08 Resp 18 12/04/24 12:08 BP 146/72 H 12/04/24 10:59 Pulse Ox 95 12/04/24 10:59 O2 Del Method Nasal Cannula 12/04/24 10:59 O2 Flow Rate 2 12/04/24 10:59 FiO2 28 12/01/24 08:00 Oxygen Flow Rate 28 12/01/24 01:29 BMI result Body Mass Index 41.4 General: AO X 3, no acute distress Resp: CTA bilateral, no accessory muscles used CVS: S1,S2,RRR GI: soft, non tender, non distended Neuro: motor grossly intact, alert Psych: appropriate affect, appropriate insight Const: Other: General: AO X 3, no acute distress Resp: CTA bilateral CVS: S1,S2,RRR GI: +BS, NT, no distention Skin: No rash Neuro: motor grossly intact Psych: appropriate affect Objective Data Active Medications Albuterol Sulfate (Albuterol Sulfate (0.083%) 2.5 Mg/3 Ml Vial.Neb) 2.5 mg INHALE Q3H PRN PRN Reason: Wheezing Albuterol/Ipratropium (Albuterol/Iprat 2.5/0.5mg 3 Ml Ampul.Neb) 3 ml INHALE Q6H [facility] Last Admin: 12/04/24 12:06 Dose: 3 ml Documented By: WILL Aripiprazole (Aripiprazole 5 Mg Tablet) 5 mg PO DAILY [facility] Last Admin: 12/03/24 08:19 Dose: 5 mg Documented By: NATALI Aspirin (Aspirin Enteric Coated 81 Mg Tablet.) 81 mg PO DAILY@1999 [facility] Last Admin: 12/03/24 20:59 Dose: 81 mg Documented By: JENNIFER Atorvastatin Calcium (Atorvastatin Calcium 80 Mg Tablet) 80 mg PO DAILY@1999 [facility] Last Admin: 12/03/24 20:59 Dose: 80 mg Documented By: JENNIFER Baclofen (Baclofen 20 Mg Tablet) 20 mg PO TID@0500,1200,1999 [facility] Last Admin: 12/04/24 12:41 Dose: 20 mg Documented By: JASON Benzonatate (Benzonatate 100 Mg Capsule) 100 mg PO TID PRN PRN Reason: Cough Last Admin: 12/02/24 08:34 Dose: 100 mg Documented By: SHAHZAD Duloxetine HCl (Duloxetine Hcl 60 Mg Capsule.) 60 mg PO BID@050,1999 [facility] Last Admin: 12/04/24 05:41 Dose: 60 mg Documented By: JENNIFER Enoxaparin Sodium (Enoxaparin Sodium 40 Mg/0.4 Ml Syringe) 40 mg SUBCUT DAILY [facility] Last Admin: 12/03/24 08:19 Dose: 40 mg Documented By: NATALI Gabapentin (Gabapentin 400 Mg Capsule) 1,200 mg PO TID@0500,1200,1999 [facility] Last Admin: 12/04/24 12:41 Dose: 1,200 mg Documented By: JASON Azithromycin 500 mg/ Sodium (Chloride) 250 mls @ 125 mls/hr IV Q24H [facility] Last Infusion: 12/03/24 23:03 Dose: Infused Documented By: JENNIFER Lorazepam (Lorazepam 0.5 Mg Tablet) 0.5 mg PO Q4H PRN PRN Reason: anxiety/restlessness Last Admin: 12/03/24 21:05 Dose: 0.5 mg Documented By: JENNIFER Patient Own Med ( Hyoscyamine Sulfate 0.125 Mg Tablet) 0.25 mg PO Q6H PRN PRN Reason: Abdominal Discomfort Last Admin: 12/04/24 12:40 Dose: 0.25 mg Documented By: JASON Nystatin (Nystatin Powder 15 Gm Bottle) 1 appl TOPICAL BID [facility]; Protocol Last Admin: 12/04/24 12:36 Dose: 1 appl Documented By: JASON Oxcarbazepine (Oxcarbazepine 300 Mg Tablet) 300 mg PO BID [facility] Last Admin: 12/04/24 05:43 Dose: 300 mg Documented By: JENNIFER Comments: per pt. takes at this time. Oxycodone HCl (Oxycodone Hcl Immed Release 5 Mg Tablet) 5 mg PO BID PRN PRN Reason: Severe Pain (Scale Score 7-10) Last Admin: 12/04/24 12:41 Dose: 5 mg Documented By: JASON Prazosin HCl (Prazosin Hcl 1 Mg Capsule) 2 mg PO DAILY@1999 [facility]; Protocol Last Admin: 12/03/24 21:00 Dose: 2 mg Documented By: JENNIFER Prednisone (Prednisone 20 Mg Tablet) 40 mg PO DAILY [facility] Last Admin: 12/03/24 08:18 Dose: 40 mg Documented By: NATALI Roflumilast (Roflumilast 500 Mcg Tablet) 500 mcg PO DAILY [facility] Last Admin: 12/03/24 08:18 Dose: 500 mcg Documented By: NATALI Valsartan (Valsartan 80 Mg Tablet) 80 mg PO DAILY [facility]; Protocol Last Admin: 12/04/24 12:35 Dose: 80 mg Documented By: JASON Verapamil HCl (Verapamil Hcl 120 Mg Tablet) 120 mg PO BID@ [facility]; Protocol Last Admin: 12/04/24 05:51 Dose: 120 mg Documented By: JENNIFER Labs 12/01/24 04:48 12/01/24 04:48 Labs: Laboratory Results - last 24 hr 12/01/24 17:45 Urine Opiates Screen Not Detected Ur Buprenorphine Scrn Not Detected Ur Oxycodone Screen Positive H Urine Methadone Screen Not Detected Urine Fentanyl Screen Not Detected Ur Barbiturates Screen Not Detected Ur Phencyclidine Scrn Not Detected Ur Amphetamines Screen Not Detected U Benzodiazepines Scrn Not Detected Urine Cocaine Screen Not Detected U Marijuana (THC) Screen POSITIVE H Microbiology Microbiology Results: Microbiology 11/30/24 21:56 Blood Culture - Preliminary Blood - Venous No growth after 48 hours. 11/30/24 21:50 Blood Culture - Preliminary Blood - Venous No growth after 48 hours. Assessment and Plan (1) Hypoxia: Status: Acute Assessment and Plan: 59F [facility] chronic hypoxemic respiratory failure due to COPD on 2-3 L supplemental oxygen at baseline, hypertension, mixed hyperlipidemia, history of CVA, trigeminal neuralgia, mood disorder, lower extremity edema who presented to the emergency department for evaluation of dyspnea, chest pain and dizziness. Was recently prescribed Lasix for CHF. On [id number] BP 50s/30s by EMS, had MAKI with Cr 1.47. Patient was admitted briefly to the ICU and required vasopressor Hypotension likely d/t BP meds and Lasix, required vasopressor. BP now on higher side restart verapamil 120 bid on 12/02 and Valsarta today continue holding Lasix, monitor for another day HTN see above history of CVA/mixed hyperlipidemia On aspirin and statin COPD possible acute exacerbation continue inhalers and Prednisone x 5 days, ending 12/06 Trigeminal neuralgia baclofen, trileptal, Neurontin and Cymbalta. Mood disorder: contineu home meds Morbid obesity weight loss advised dvt prophylaxis - lovenox full code Quality Stroke Does the patient have a stroke diagnosis?: No VTE Prior VTE?: No VTE Risk Level:: Medical - moderate - high VTE Device Contraindication: N/A - Device Ordered VTE Drug Contraindication: N/A - Med Ordered
--- NOTE | 2024-12-04 15:11 | MHC.CM.PN ---
EMR reviewed and per MD rounds, pt is not medically cleared for discharge at this time.
[2024-12-04] MEDS: LORazepam 0.5 MG TABLET PO (20:55)
[2024-12-04] MEDS: Atorvastatin Calcium 80 MG TABLET PO (20:56)
[2024-12-04] MEDS: Prazosin HCL 1 MG CAPSULE 2 MG PO (20:56)
[2024-12-04] MEDS: Aspirin Enteric Coated 81 MG TABLET.DR PO (20:56)
[2024-12-04] MEDS: Azithromycin 500 MG in 0.9 % Sodium Chloride 250 ML 125 MG IV (20:58)
[2024-12-05 00:03] VITALS: PULSE 93; O2SAT 93
[2024-12-05 04:00] VITALS: BP 130/72; PULSE 81; RESP 16; TEMP 36.3; O2SAT 99
[2024-12-05 05:58] VITALS: PULSE 79; RESP 16; O2SAT 97
[2024-12-05] MEDS: Albuterol/Iprat 2.5/0.5MG 3 ML AMPUL.NEB INHALE (05:58)
[2024-12-05] MEDS: VerapamiL HCL 120 MG TABLET PO (06:17)
[2024-12-05] MEDS: DULoxetine HCl 60 MG CAPSULE.DR PO (06:17)
[2024-12-05] MEDS: Gabapentin 400 MG CAPSULE 1200 MG PO (06:17)
[2024-12-05] MEDS: Baclofen 20 MG TABLET PO (06:17)
[2024-12-05] MEDS: OXcarbazepine 300 MG TABLET PO (06:18)
[2024-12-05 07:12] VITALS: BP 116/62; PULSE 82; RESP 18; TEMP 36.3; O2SAT 93
[2024-12-05] MEDS: ARIPiprazole 5 MG TABLET PO (08:48)
[2024-12-05] MEDS: Roflumilast 500 MCG TABLET PO (08:49)
[2024-12-05] MEDS: predniSONE 20 MG TABLET 40 MG PO (08:49)
[2024-12-05] MEDS: Enoxaparin Sodium 40 MG/0.4 ML SYRINGE SUBCUT (08:53)
[2024-12-05] MEDS: Valsartan 80 MG TABLET PO (08:54)
[2024-12-05] MEDS: oxyCODONE HCl Immed Release 5 MG TABLET PO (08:57)
--- NOTE | 2024-12-05 10:00 | P.DS_ITS ---
DS: Providers Provider Date of Service: 12/05/24 Date of admission: 12/01/24 01:29 Date of discharge: 12/05/24 Primary care physician: Rhett Cortez MD DS: Diagnosis Discharge Diagnosis (1) Hypoxia: Status: Acute DS: Summary Hospital Course Hospital Course: Admission H and P CC: Refractory Hypotension, MAKI, Hypovolemia Patient with underlying history of hypoxic respiratory failure due to COPD who uses 1-3 L of oxygen at home depending on her level of activity, hypertension, hyperlipidemia, CVA without residuals, mitral valve regurg, trigeminal neuralgia, occipital neuralgia, chronic pain syndrome, obstructive sleep apnea unable to tolerate CPAP, anxiety, aortic stenosis, hypogammaglobinemia, pulmonary nodules, peripheral neuropathy, tobacco use disorder, lumbar diskectomy and chronic pain among others.? Patient had recently been admitted and discharged from this hospital due to acute hypoxic respiratory failure in the setting of COPD.? She was discharged on 11/19/2024.? Her hospital stay was uneventful and she was discharged within 24 hours of admission. She has come back to the hospital with complaints of shortness of breath, she had stated that she was diagnosed with CHF 24 hours ago and was placed on Lasix, since then she has been feeling lightheaded, dizzy with standing and having purple coloration vision however no other complaints including no cough, fever or chills.? Patient appeared somewhat somnolent, unable to provide a full history.? In the emergency room the patient became hypotensive with the lowest blood pressure in the 70 systolic which did not improve despite of 1.5 L of IV fluids, no further fluids were administered as there was fear the patient would go into heart failure.? The patient was started on pressors.? Her workup reveals a white count of 11.6, hemoglobin 12.9, hematocrit 38.8, platelet count 388.? Sodium 141, potassium 3.5, chloride 99, carbon dioxide 30, anion gap 16, BUN 20, creatinine 1.47 (baseline 0.7.).? Lactic acid 2.6, improved to 1.8.? Respiratory panel negative.? Venous blood gas pH of 7.3, pCO2 53, PO2 122, HC03 28.? Chest x-ray and chest CT both unremarkable for acute pathology. While in the ER, I have had difficulty waking the patient up, she appeared to be pretty obtunded despite of sternal rub, an ABG will be obtained, bladder scan was requested and the patient will be transferred to the ICU for further care given the refractory hypotension despite of IV fluid administration. Hospial course A 59-year-old female with a history of chronic hypoxemic respiratory failure due to COPD (on 2-3 L supplemental oxygen at baseline), hypertension, mixed hyperlipidemia, prior CVA, trigeminal neuralgia, mood disorder, and lower extremity edema presented to the emergency department with dyspnea, chest pain, and dizziness. She was recently prescribed Lasix for congestive heart failure (CHF). On presentation, she was hypotensive (BP in the 50s/30s per EMS) and had acute kidney injury (Cr 1.47). She was admitted to the ICU, treated with vasopressors and IV fluids, which improved her blood pressure, and was then transferred to a telemetry floor. No evidence of sepsis was found. Her blood pressure has since stabilized, and she has resumed Lasix. Due to elevated blood pressure, her usual medications, verapamil 120 mg twice daily (taken for years) and valsartan 80 mg daily, were restarted, with good blood pressure control and no further dizziness. She currently has no symptoms of heart failure. HTN see above history of CVA/mixed hyperlipidemia copntinue aspirin and statin COPD possible acute exacerbation continue inhalers and Prednisone x 5 days, ending 12/06 Trigeminal neuralgia baclofen, trileptal, Neurontin and Cymbalta. Mood disorder: contineu home meds Morbid obesity Time Attestation Discharge Coordination Time (in mins): 45 Quality: Safe Use of Opioids Does Pt have an Active Cancer Diagnosis on the Problem List?: No Quality: Stroke Does the patient have a stroke diagnosis?: No Physical Exam Vital Signs: Vital Signs: Last Vital Signs Temp 97.3 F 12/05/24 07:12 Pulse 82 12/05/24 07:12 Resp 18 12/05/24 07:12 BP 116/62 12/05/24 07:12 Pulse Ox 93 12/05/24 07:12 O2 Del Method Nasal Cannula 12/05/24 07:12 O2 Flow Rate 2 12/05/24 07:12 FiO2 12/01/24 08:00 Oxygen Flow Rate 12/01/24 01:29 BMI result Body Mass Index 41.4 General: AO X 3, no acute distress Resp: CTA bilateral, no accessory muscles used CVS: S1,S2,RRR GI: soft, non tender, non distended Neuro: motor grossly intact, alert Psych: appropriate affect, appropriate insight DS: Data Data Completed and Pending Completed studies during hospitalization [Text1]: Procedures Assistance with Respiratory Ventilation, Less than 24 Consecutive Hours, Continuous Positive Airway Pressure (08/22/24) Labs on day of discharge: Preliminary micro results at discharge 11/30/24 21:56 Blood Culture - Preliminary Blood - Venous No growth after 48 hours. 11/30/24 21:50 Blood Culture - Preliminary Blood - Venous No growth after 48 hours. Discharge Plan Discharge Anticipated Discharge Date/Time: 12/05/24 10:00 Patient Disposition: Home Health Service Discharge Diagnosis: Hypotension related to blood pressure medication with Lasix Referrals: Rhett Cortez MD [Primary Care Provider, Internal Medicine] - 1 Week Discharge Medications: Continued ipratropium-albuterol 0.5 mg-3 mg(2.5 mg base)/3 mL solution for nebulization 3 ml inhalation Q4H PRN (Reason: for dyspnea) Qty: 180 11RF valsartan 80 mg tablet 80 mg PO DAILY Qty: 30 2RF verapamil 120 mg tablet 120 mg PO BID@0500,2000 lorazepam 0.5 mg tablet 1 mg PO DAILY PRN (Reason: MODERATE Anxiety) baclofen 20 mg tablet 20 mg PO TID@0500,1200,2000 ciclopirox 8 % solution 1 appl topical DAILY PRN (Reason: Fungal Infection) oxycodone 5 mg tablet 5 mg PO BID PRN (Reason: Severe Pain (Scale Score 7-10)) benzonatate 100 mg Capsule 100 mg PO TID PRN (Reason: Cough) Qty: 30 0RF codeine-guaifenesin 10-100 mg/5 mL Liquid 10 ml PO Q6H PRN (Reason: Cough) Qty: 473 0RF Mucus DM 30-600 mg Tablet Extended Release 12 Hr 1 tab PO BID Qty: 20 0RF oxcarbazepine 300 mg tablet 300 mg PO TID aripiprazole 5 mg tablet 5 mg PO DAILY atorvastatin 80 mg tablet 80 mg PO DAILY@2000 uybgxjyzsa-jcbhhxyofqagv-fpmp 50-325-40 mg tablet 1 tab PO DAILY MRX1 PRN (Reason: Migraine Headache) hyoscyamine sulfate 0.125 mg tablet 0.25 mg PO Q6H PRN (Reason: Abdominal Discomfort) gabapentin 300 mg capsule 1,200 mg PO TID@0500,1200,1999 duloxetine 60 mg capsule,delayed release(DR/EC) 60 mg PO BID@0500,1999 ([facility]) nebulizer and compressor Device See Rx Instructions .Route Qty: 1 0RF Rx Instructions: As directed albuterol sulfate 90 mcg/actuation HFA aerosol inhaler 2 puff inhalation Q4H PRN (Reason: Shortness Of Breath Or Wheezing) aspirin 81 mg tablet,delayed release (DR/EC) 81 mg PO DAILY@1999 calcium carbonate-vitamin D3 600 mg-5 mcg (200 unit) tablet 1 tab PO DAILY@1999 roflumilast [Daliresp] 500 mcg tablet 500 mcg PO DAILY 30 Days Qty: 30 11RF prazosin 2 mg capsule 2 mg PO DAILY@1999 ([facility]) Oxygen Home Use Kit See Rx Instructions .Route Rx Instructions: As directed Discontinued furosemide 20 mg tablet 4 mg PO DAILY Discharge Orders: Discharge Order (Routine); Ordered 12/05/24 Ordered By: Judah Hu Diet: Advance to usual diet Activity on Discharge: As tolerated Stand Alone Forms: Patient Portal Discharge page Print Language: Micronesian Care Plan Goals: recovery acute hypotension and dizzinesss due to blood pressures medication Health Concerns: Hypotension that has resolved, chronic lung disease requiring oxygen all the time Plan of Treatment: Stop taking Lasix at this time, if you experience symptoms of dizziness, please do not take your blood pressume medication and call 911 Follow up with your primary care doctor in a week, call for appointment Assessment: see above
[2024-12-05] MEDS: Albuterol Sulfate (0.083%) 2.5 MG/3 ML VIAL.NEB INHALE (10:05)
[2024-12-05 10:07] VITALS: PULSE 97; RESP 22; O2SAT 92
--- NOTE | 2024-12-05 10:43 | W.MHC.F2F ---
Service Date Service Date: 12/05/24 Encounter Date of encounter: 12/05/24 Reasons for Services Signs and symptoms assessed: Dizziness from low blood pressure Reason for fdc: medication management, medication treatment and teach disease management Homebound: Leaving the home is medically contraindicated at this time without the asist of a device and/or another person due th the listed conditions above and below. Reason homebound: shortness of breath with minimal effort and weakness related to hospital stay Homebound supporting statement: homebound due to chronic respiratory failure and requiring oxygen at all time, does not drive and thererfore needs the assitance of another person Certification: Based on the above findings, I certify that this patient is confined to the home and needs intermittent fdc care, physical therapy and/or speech therapy, or continues to need occupational therapy. The patient is under my care, and I have initiated the establishment of the plan of care. The patient will be followed by a physician who will periodically review the plan of care. Time Spent With Patient Time: Total time managing care of this patient today ____ minutes.
--- NOTE | 2024-12-05 11:16 | MHC.CM.PN ---
Pt has been medically cleared to NH, she will go home via family transport and resume her home care services from [facility].
--- NOTE | 2024-12-06 11:05 | P.CDIM_ITS ---
PROVIDER RESPONSE TEXT: To clarify, the appropriate diagnosis supported by the clinical indicators: Hypovolemic shock QUERY TEXT: PHYSICIAN'S DOCUMENTATION REQUEST Date of Query: 12/04/2024 10:54 AM EDT Patient Name: Zulma Alves Admit Date: 12/01/2024 Dear Jduah Hu MD, A review of the medical record indicates additional documentation may be needed. Please review below and update the documentation accordingly. Clinical Indicators: refractory hypotension likely due to over-diuresis BP 50s/30s dizzy, short of breath started on vasopressor Based on the above, could you clarify the type of shock that supports the above abnormalities and additional evaluation, monitoring, and/or treatment rendered: Hypovolemic shock Other (explain) Clinically unable to determine (explain) Thank you, Martha Coronel RN Use of terms such as suspected, likely, concern for, or probable (associated with a specific diagnosis that is being evaluated, monitored, or treated as if it exists) are acceptable and can be coded in the inpatient setting, when documented at the time of discharge. Please use your independent medical judgment in providing your response. THIS QUERY IS PART OF THE PERMANENT MEDICAL RECORD
== END 2024-12-05 11:22 | disposition home health service (06) | DRG 207 ==
LOC: HO.ED 12-01 01:17 → HO.EDOVER 12-01 01:34 → HO.ICU 12-01 01:38 → HO.IMC 12-01 14:25
PROVIDERS: Internal Medicine Critical Care Medicine; Admitting Provider Physician Assistant Medical; Emergency Provider Emergency Medicine; PCP Internal Medicine; Visit Provider Internal Medicine
DX: I95.2 Hypotension due to drugs (principal); R57.1 Hypovolemic shock; G93.41 Metabolic encephalopathy; N17.9 Acute kidney failure, unspecified; E87.21 Acute metabolic acidosis; J44.1 Chronic obstructive pulmonary disease with (acute) exacerbation; T46.5X5A Adverse effect of other antihypertensive drugs, initial encounter; T50.1X5A Adverse effect of loop [high-ceiling] diuretics, initial encounter; I11.0 Hypertensive heart disease with heart failure; E86.0 Dehydration; E66.01 Morbid (severe) obesity due to excess calories; Z68.41 Body mass index [BMI] 40.0-44.9, adult; Z71.3 Dietary counseling and surveillance; E78.2 Mixed hyperlipidemia; G50.0 Trigeminal neuralgia; Z86.73 Personal history of transient ischemic attack (TIA), and cerebral infarction without residual deficits; J96.11 Chronic respiratory failure with hypoxia; R33.9 Retention of urine, unspecified; E86.1 Hypovolemia; I50.9 Heart failure, unspecified; Z20.822 Contact with and (suspected) exposure to COVID-19; Z99.81 Dependence on supplemental oxygen; Z79.82 Long term (current) use of aspirin; Z87.891 Personal history of nicotine dependence; Z79.899 Other long term (current) drug therapy
CPT/HCPCS: 0241U; 36415; 36600; 70450; 71045; 71250; 74176; 80048; 80053; 80076; 80307; 81003; 82140; 82803; 83605; 83735; 83880; 84100; 84484; 85025; 87040; 93005; 93306; 94640; 94660; 97162; 99285; J0456; J0696; J1644; J1650; J2919; J7120; P9047; Q9957

== ENCOUNTER → 2024-11-30 21:19 | Outpatient (BNV) | payer BC, SELFPAY | PROVIDERS: Emergency Provider Emergency Medicine; PCP Internal Medicine; Visit Provider Specialist | DX: R06.02 Shortness of breath (principal) | CPT/HCPCS: 71045; 71250 ==

== ENCOUNTER → 2024-11-30 21:19 | Outpatient (BNV) | payer BC, SELFPAY | PROVIDERS: Admitting Provider Physician Assistant Medical; Emergency Provider Emergency Medicine; PCP Internal Medicine; Visit Provider Internal Medicine Cardiovascular Disease | DX: R94.31 Abnormal electrocardiogram [ECG] [EKG] (principal); R06.02 Shortness of breath | CPT/HCPCS: 93010 ==

== ENCOUNTER 2024-12-01 01:29 | Outpatient (BNV) | payer BC, SELFPAY | END 2024-12-01 11:04 | PROVIDERS: Admitting Provider Physician Assistant Medical; Emergency Provider Emergency Medicine; PCP Internal Medicine; Visit Provider Radiology Diagnostic Radiology | DX: N20.0 Calculus of kidney (principal); R41.0 Disorientation, unspecified | CPT/HCPCS: 70450; 74176 ==

== ENCOUNTER 2024-12-01 01:29 | Outpatient (BNV) | payer BC, SELFPAY | END 2024-12-01 12:00 | PROVIDERS: Admitting Provider Physician Assistant Medical; Emergency Provider Emergency Medicine; PCP Internal Medicine; Visit Provider Internal Medicine Cardiovascular Disease | DX: I35.0 Nonrheumatic aortic (valve) stenosis (principal); I31.39 Other pericardial effusion (noninflammatory) | CPT/HCPCS: 93306 ==

== ENCOUNTER → 2024-12-01 01:29 | Outpatient (BNV) | payer BC, SELFPAY | PROVIDERS: Admitting Provider Physician Assistant Medical; Emergency Provider Emergency Medicine; PCP Internal Medicine; Visit Provider Internal Medicine | DX: R09.02 Hypoxemia (principal) | CPT/HCPCS: 99232; 99239 ==

== ENCOUNTER → 2024-12-01 01:29 | Outpatient (BNV) | payer BC, SELFPAY | PROVIDERS: Admitting Provider Physician Assistant Medical; Emergency Provider Emergency Medicine; PCP Internal Medicine; Visit Provider Physician Assistant Medical | DX: I95.9 Hypotension, unspecified (principal) | CPT/HCPCS: 99291 ==

== ENCOUNTER → 2024-12-07 20:27 | Outpatient (BNV) | payer BC, SELFPAY | PROVIDERS: Emergency Provider Internal Medicine; Visit Provider Radiology Diagnostic Radiology | DX: R06.02 Shortness of breath (principal) | CPT/HCPCS: 71045 ==

== ENCOUNTER 2024-12-07 20:53 | Inpatient (IN) | payer BC, SELFPAY ==
[2024-12-07] VITALS (8 sets, daily range): BP systolic 70–115; BP diastolic 31–67; PULSE 77–91; RESP 18–20; TEMP 36.8; O2SAT 93–97; BMI 39.3
--- NOTE | 2024-12-07 | ECG_ITS ---
Test Reason : sob Blood Pressure : */* mmHG Vent. Rate : 96 BPM Atrial Rate : 96 BPM P-R Int : 126 ms QRS Dur : 94 ms QT Int : 354 ms P-R-T Axes : 66 69 49 degrees QTcB Int : 447 ms Normal sinus rhythm Nonspecific ST abnormality Abnormal ECG When compared with ECG of 30-Nov-2024 21:29, ST no longer depressed in Anterolateral leads Referred By: Generic ED Physician Electronically Signed By: ANGEL HARRISON
--- NOTE | ~2024-12-07 | XR_ITS ---
CLINICAL HISTORY: sob --- Additional Notes or Special Instructions: EKG - 2123 1 view chest x-ray Comparison: Prior chest radiographs and chest CTs most recently on 11/30/2024 Findings: The lungs are clear. Heart size is normal. No acute fracture. IMPRESSION: 1. No acute findings. This document has been electronically signed by: Amy Truong MD on 12/07/2024 21:58:56
[2024-12-07] MEDS: Albuterol Sulfate 7.5 MG, Albuterol/Iprat 2.5/0.5MG 3 ML 3 ML INHALE (21:02)
--- NOTE | 2024-12-07 21:17 | ED.SOB ---
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, mitral valve regurg, trigeminal neuralgia, occipital neuralgia, chronic pain syndrome, obstructive sleep apnea unable to tolerate CPAP, anxiety, aortic stenosis, hypogammaglobinemia, pulmonary nodules, peripheral neuropathy, tobacco use disorder, lumbar diskectomy and chronic hypercapnic respiratory failure just discharged on 12/05 for similar presentation comes here for again shortness a breath started yesterday saturating 80% at 2 L after nebulizing treatment improved to 83% after arrival in the ER patient is saturating 95% on 2 L patient complaining of bilateral lung pain does have cough no fever no chills Related Data Home Medications ?Medication ?Instructions ?Recorded ?Confirmed atorvastatin 80 mg tablet 80 mg PO DAILY@199903/04/23 12/01/24 gmcbsknbrg-biodbkkenxpnz-getkiaoa 1 tab PO DAILY MRX1 PRN Migraine 03/04/23 12/01/24 50 mg-325 mg-40 mg tablet Headache duloxetine 60 mg capsule,delayed 60 mg PO BID@050,199903/04/23 12/01/24 release gabapentin 300 mg capsule 1,200 mg PO TID@0500,1200,199903/04/23 12/01/24 hyoscyamine sulfate 0.125 mg tablet 0.25 mg PO Q6H PRN Abdominal 03/04/23 12/01/24 Discomfort Oxygen Home Use 04/16/23 10/29/24 prazosin 2 mg capsule 2 mg PO DAILY@199904/16/23 12/01/24 albuterol sulfate 90 mcg/actuation 2 puff inhalation Q4H PRN 01/31/24 12/01/24 aerosol inhaler Shortness Of Breath Or Wheezing aspirin 81 mg tablet,delayed 81 mg PO DAILY@199905/22/24 12/01/24 release calcium 600 mg (as 1 tab PO DAILY@199906/20/24 12/01/24 carbonate)-vitamin D3 5 mcg (200 unit) tablet verapamil 120 mg tablet 120 mg PO BID@0500,199907/02/24 12/01/24 lorazepam 0.5 mg tablet 1 mg PO DAILY PRN MODERATE Anxiety 08/03/24 12/01/24 baclofen 20 mg tablet 20 mg PO TID@0500,1199,199910/29/24 12/01/24 ciclopirox 8 % topical solution 1 appl topical DAILY PRN Fungal 10/29/24 12/01/24 Infection oxycodone 5 mg tablet 5 mg PO BID PRN Severe Pain (Scale 10/29/24 12/01/24 Score 7-10) aripiprazole 5 mg tablet 5 mg PO DAILY 12/01/24 12/01/24 oxcarbazepine 300 mg tablet 300 mg PO TID 12/01/24 12/01/24 Previous Rx's ?Medication ?Instructions ?Recorded nebulizer and compressor #1 ea 12/16/23 ipratropium 0.5 mg-albuterol 3 mg 3 ml inhalation Q4H PRN for 03/02/24 (2.5 mg base)/3 mL nebulization dyspnea #180 mL soln valsartan 80 mg tablet 80 mg PO DAILY #30 tabs 10/04/24 roflumilast 500 mcg tablet 500 mcg PO DAILY 30 days #30 tabs 10/06/24 (Daliresp) benzonatate 100 mg capsule 100 mg PO TID PRN Cough #30 caps 10/31/24 codeine 10 mg-guaifenesin 100 mg/5 10 ml PO Q6H PRN Cough #473 mL 10/31/24 mL oral liquid dextromethorphan-guaifenesin 30 1 tab PO BID #20 tabs 10/31/24 mg-600 mg tablet extended hr (Mucus DM) Allergies Allergy/AdvReac Type Severity Reaction Status Date / Time Iodinated Contrast Media (IV Allergy Intermediate HIVES Verified 12/07/24 21:06 CONTRAST) latex (LATEX) Allergy Unknown RASH Verified 12/07/24 21:06 adhesive tape Allergy Rash Verified 12/07/24 21:06 morphine (MORPHINE) AdvReac Unknown VOMITING Verified 12/07/24 21:06 Review of Systems Review of Systems: Yes all other systems are reviewed and are negative PMFSH Past Medical History Medical History Panic disorder Hypertension Chronic hypercapnic respiratory failure Aortic stenosis Obesity (BMI 30-39.9) Asthma Acute exacerbation of chronic obstructive pulmonary disease Chronic lung disease Hypogammaglobulinemia Smoker JUANITO (obstructive sleep apnea) Allergies Elevated troponin COPD (chronic obstructive pulmonary disease) Trigeminal neuralgia Pulmonary nodules Mixed hyperlipidemia Peripheral neuropathy Tobacco use disorder Mood disorder Surgical History History of esophagogastroduodenoscopy (EGD) History of colonoscopy History of lumbar discectomy History of tubal ligation History of excision of mass History of shoulder surgery Social History Social History Household Members: Spouse Housing: Condominium Do you presently have visiting nurse or other home services: Yes Alcohol intake: never Comment: pt steady on feet, refusing all alarms Patient Tobacco Use Status: Former Tobacco user Tobacco use type: Cigarette Cigarette Packs Per Day: 4 Cigarettes Per Day: 80.0 Years Smoked: 40 e-Cigarette/Vaping Use: Currently Using Second Hand Smoke Exposure: No Substance Use Type: Marijuana Advance Directives: Yes Advance Directives on File: Yes Advance Directives Date on File: 03/09/23 Do you have a plan to hurt others: No Plan service: No Physical Exam Vital Signs: Vital Signs: Last Vital Signs Temp 98.2 F 12/07/24 21:04 Pulse 79 12/08/24 01:02 Resp 20 12/08/24 01:02 BP 120/54 L 12/08/24 00:30 Pulse Ox 94 12/08/24 00:30 O2 Del Method Nasal Cannula 12/08/24 00:30 O2 Flow Rate 2 12/08/24 00:30 Oxygen Flow Rate 2 12/07/24 21:04 BMI result Body Mass Index 39.3 Appearance: Alert. Oriented X3. No acute distress. Eyes: No pallor or icterus ENT: Pharynx normal. Oral Mucosa moist Neck: Normal inspection. Neck supple. CVS: Normal heart rate and rhythm. Pulses normal. Respiratory: No respiratory distress. Equal air entry bilateral, no wheezing/rales/rhonchi Abdomen: Soft and nontender. Bowel sounds are present, no mass palpable, no CVA tenderness Skin: Skin warm and dry. Normal skin color. Normal skin turgor. Extremities: No lower extremity edema. No calf tenderness Neuro: Oriented X 3. No motor deficit. No sensory deficit.No cerebellar signs , cranial nerves II-XII intact Medications Administered Discontinued Medications Generic Name Dose Route Start Last Admin Trade Name Katya PRN Reason Stop Dose Admin Albuterol/Ipratropium 3 ml 12/08/24 00:58 12/08/24 01:02 Albuterol/Iprat 2.5/0.5mg 3 Ml Ampul.Neb INHALE 12/08/24 00:59 3 ml ONCE ONE Administration Albuterol Sulfate 7.5 mg/ 0 mg 12/07/24 20:59 12/07/24 21:02 Albuterol/Ipratropium 3 ml INHALE 12/07/24 21:00 1 each ONCE ONE Administration Hydromorphone HCl 1 mg 12/07/24 21:29 12/07/24 21:56 Hydromorphone Hcl 1 Mg/Ml Syringe IVPUSH 12/07/24 21:30 Not Given ONCE ONE Protocol Sodium Chloride 1,000 mls @ 999 mls/hr 12/07/24 21:29 12/07/24 22:53 Ns IV 12/07/24 22:29 Infused .Q1H1M ONE Infusion Sodium Chloride 1,000 mls @ 999 mls/hr 12/07/24 22:03 12/07/24 23:38 Ns IV 12/07/24 23:03 Infused .Q1H1M ONE Infusion Methylprednisolone Sodium Succinate 125 mg 12/07/24 21:29 12/07/24 21:56 Methylprednisolone Sod Succ 125 Mg Vial IVPUSH 12/07/24 21:30 125 mg ONCE ONE Administration Midodrine 10 mg 12/07/24 21:59 12/07/24 22:27 Midodrine Hcl 10 Mg Tablet PO 12/07/24 22:00 10 mg ONCE ONE Administration Oxycodone HCl 10 mg 12/08/24 00:04 12/08/24 00:53 Oxycodone Hcl Immed Release 5 Mg Tablet PO 12/08/24 00:05 10 mg ONCE ONE Administration Medical Decision Making Medical Decision Making [facility] Narrative: Patient with frequent ED visits at least 2 to 3 times a month the discharged 3 days ago for respiratory failure comes back again with similar complaints patient has had multiple times blood cultures and lactic acid were done which were negative patient does have occasional cough mostly dry no fever I do not suspect sepsis in this patient will admit patient for transient hypoxia and hypotension which improved after IV fluids Differential Diagnosis Differential Diagnoses: The differential diagnosis associated with the presentation includes Admission/Observation Consideration of admission/observation: Escalation of care including admission/observation considered Consult Healthcare Provider Management of the patient was discussed with: Hospitalist Lab Data MDM Lab Attestation statement: I reviewed the patient's lab results. 12/07/24 21:11 12/07/24 21:57 Labs: Lab Results 12/07/24 12/07/24 12/07/24 Range/Units 21:11 21:17 21:57 WBC 8.4 (4.8-10.8) X10*3/uL RBC 3.70 L (4.20-5.50) X10*6/uL Hgb 11.9 L (12.0-16.0) g/dl Hct 35.9 L (37.0-47.0) % MCV 97.0 (80.0-98.0) fL MCH 32.2 (27.0-33.0) pg MCHC 33.1 (31.0-35.0) g/dl RDW 13.8 (11.0-16.0) % Plt Count 350 (160-400) X10*3/uL MPV 9.1 L (9.4-12.3) fL Immature Gran % (Auto) 0.6 H (0.0-0.4) % Neut % (Auto) 58.2 (45-73) % Lymph % (Auto) 27.0 (20-40) % [place] % (Auto) 8.7 (2-11) % Eos % (Auto) 4.9 H (0-4) % Baso % (Auto) 0.6 (0-2) % Lymph # (Auto) 2.3 (1.2-4.9) X10*3/uL [place] # (Auto) 0.7 (0.1-1.2) X10*3/uL Eos # (Auto) 0.4 (0.0-0.4) X10*3/uL Baso # (Auto) 0.1 (0.0-0.2) X10*3/uL Abs Immat Gran (auto) 0.05 H (0.00-0.03) X10*3/uL Absolute Neuts (auto) 4.9 (2.0-8.3) x10*3/uL Absolute Nucleated RBC 0.000 (0.0-0.012) X10*3/uL Nucleated RBC % (auto) 0.0 (0.0-0.2) /100WBC VBG pH 7.47 H (7.32-7.43) VBG pCO2 51 mmHg VBG pO2 102 mmHg VBG HCO3 38 H (22-26) mmol/L VBG O2 Saturation 99.0 % VBG Base Excess 12.9 mmol/L Sodium 140 (135-145) mmol/L Potassium 3.4 (3.3-5.1) mmol/L Chloride 103 (96-108) mmol/L Carbon Dioxide 29 (22-29) mmol/L Anion Gap 11 L (12-20) BUN 18 H (9-16) mg/dL Creatinine 1.16 (0.5-1.4) mg/dL Estim Creat Clear Calc 53.4 Estimated GFR 47 Random Glucose 227 H (60-115) mg/dL Calcium 9.3 (8.4-10.2) mg/dL Total Bilirubin 0.2 (0.0-1.0) mg/dL AST 23 (5-31) U/L ALT 15 (0-31) U/L Alkaline Phosphatase 52 (39-117) U/L Troponin I High Sens 29.2 H (<3.5-17.0) ng/L B-Natriuretic Peptide 16 (<100) pg/mL Total Protein 6.0 L (6.5-8.0) g/dL Albumin 3.8 (3.5-5.0) g/dL Influenza Type A (PCR) NEGATIVE (Negative) Influenza Type B (PCR) NEGATIVE (Negative) RSV RNA Qual (PCR) NEGATIVE (Negative) SARS-CoV-2 RNA (RT-PCR) NEGATIVE (Negative) Critical Care Time Critical Care Time Critical Care Time: Yes Total Critical Care Time: 55 Attestation: Time is exclusive of separately billable procedures. Time includes: direct patient care, patient reassessment, coordination of patient care, interpretation of data (laboratory data, pulse oximetry, arterial blood gases and chest xrays), review of patient's medical records, medical consultation and documentation of patient care. Procedures excluded from critical care time: central intravenous line placement and electrocardiography. . Discharge Plan Discharge Clinical Impression: Chronic hypercapnic respiratory failure, Chronic lung disease Patient Disposition: Admitted As Inpatient
[2024-12-07 21:18] LABS: Hematocrit 35.9 % (37.0-47.0); Hemoglobin 11.9 g/dl (12.0-16.0); Imm Gran Abs Auto 0.05 X10*3/uL (0.00-0.03); Imm Gran Pct Auto 0.6 % (0.0-0.4); Lymphocytes Absolute Auto 2.3 X10*3/uL (1.2-4.9); MANUAL DIFF FLAG NO; Mean Corpuscular HGB Conc 33.1 g/dl (31.0-35.0); Mean Corpuscular Hemoglobin 32.2 pg (27.0-33.0); Mean Corpuscular Volume 97.0 fL (80.0-98.0); NRBC Abs Auto 0.000 X10*3/uL (0.0-0.012); NRBC Pct Auto 0.0 /100WBC (0.0-0.2); Platelet Count 350 X10*3/uL (160-400); Red Blood Count 3.70 X10*6/uL (4.20-5.50); White Blood Count 8.4 X10*3/uL (4.8-10.8)
[2024-12-07 21:20] LABS: Venous Blood Gas Refer to POC result
[2024-12-07 21:21] LABS: VBG HCO3 38 mmol/L (22-26); VBG O2 % Saturation 99.0 %
--- NOTE | 2024-12-07 21:22 | PC.NURSE ---
md aware of bp.
[2024-12-07 21:45] LABS: B Type Natriuretic Peptide 16 pg/mL (<100); Troponin-I High Sensitivity 29.2 ng/L (<3.5-17.0)
--- NOTE | 2024-12-07 21:58 | PC.NURSE ---
md aware of bp
[2024-12-07 22:29] LABS: Alanine Aminotransferase 15 U/L (0-31); Albumin Level 3.8 g/dL (3.5-5.0); Alkaline Phosphatase 52 U/L (39-117); Anion Gap 11 (12-20); Aspartate Amino Transferase 23 U/L (5-31); Blood Urea Nitrogen 18 mg/dL (9-16); Calcium 9.3 mg/dL (8.4-10.2); Carbon Dioxide 29 mmol/L (22-29); Chloride 103 mmol/L (96-108); Creatinine Clr Calc Pharmacy 53.4; Estimated Glomerular Filt Rate 47; Potassium 3.4 mmol/L (3.3-5.1); Sodium 140 mmol/L (135-145); Total Protein 6.0 g/dL (6.5-8.0)
[2024-12-07 22:47] LABS: Resp Syncy Virus RNA Qual PCR NEGATIVE (Negative); SARS COV2 PCR INHOUSE NEGATIVE (Negative)
[2024-12-08] VITALS (18 sets, daily range): BP systolic 117–184; BP diastolic 54–86; PULSE 70–100; RESP 16–22; TEMP 36–37.1; O2SAT 91–97; BMI 38.9
[2024-12-08] MEDS: oxyCODONE HCl Immed Release 5 MG TABLET 10 MG PO (00:53)
[2024-12-08] MEDS: Albuterol/Iprat 2.5/0.5MG 3 ML AMPUL.NEB INHALE ×4 (01:02→19:28)
--- NOTE | 2024-12-08 01:16 | PM.IMHP ---
History of Present Illness Date of Service: 12/08/24 Attending physician on admission: Jeff Wilkes Chief Complaint: shortness of breath Patient is a 59-year-old female with past medical history COPD/emphysema on home O2 1-3 L, tobacco dependence, hypertension, hyperlipidemia, nephrolithiasis, CVA, obesity , moderate aortic stenosis with small pericardial effusion noted from echo 12/01/2024, trigeminal neuralgia, occipital neuralgia, chronic pain syndrome, JUANITO but does not tolerate CPAP, depression/ anxiety, urinary incontinence was brought in by ambulance to the emergency department with complaints of shortness of breath persisting over 24 hours. Chest x-ray negative for any acute findings. Patient reported chest pressure and nausea which are currently resolved. Patient did receive antiemetics x1 with good effect. Patient had just been discharged from the hospital 12/05/2024 status post admission 12/01/2024 for significant hypotension status post starting Lasix where she was told she recently was diagnosed with CHF. Patient required critical care admission to the ICU for this previous admission. Patient was very acidotic with an elevated lactic acid. Patient was also very somnolent at that time. Echo revealed a hyperdynamic EF of 70% and moderate aortic stenosis with a small pericardial effusion. Patient had some abnormal diastolic dysfunction but no other wall abnormalities noted. During patient's time in the ICU she required Levophed, hydration, and symptoms did start to improve. Patient was then transferred to the floor and discharged home on 12/05/2024. Patient states she did not attend rehab as she is not a candidate for PT or OT. Patient was not consulted Cardiology this past admission. We will place consultation with Cardiology at this time patient's current presentation noting recent echo with moderate aortic stenosis and small pericardial effusion. There is no currently any right heart strain on EKG. Patient is satting 92% on 3 L nasal cannula. Troponin 29.2, BNP 16. VBG 7.47, 51, 102 and 38. Patient did receive methylprednisolone in the ED and blood sugars are currently elevated at 227. Review of Systems Review of Systems: Patient currently denies any shortness of breath at rest, and states that nausea and chest pressure when seen at home by EMS is now resolved. Patient denies any issues abdominal pain, constipation or diarrhea. Patient denies a productive cough. Patient is not having any fevers or chills. Patient denies any recent falls since being discharged on 12/05/2024. [facility] Medical History Panic disorder Hypertension Chronic hypercapnic respiratory failure Aortic stenosis Obesity (BMI 30-39.9) Asthma Acute exacerbation of chronic obstructive pulmonary disease Chronic lung disease Hypogammaglobulinemia Smoker JUANITO (obstructive sleep apnea) Allergies Elevated troponin COPD (chronic obstructive pulmonary disease) Trigeminal neuralgia Pulmonary nodules Mixed hyperlipidemia Peripheral neuropathy Tobacco use disorder Mood disorder Cognitive capacity: Alert and orientated x3 Functional capacity: wheelchair bound Surgical History History of esophagogastroduodenoscopy (EGD) History of colonoscopy History of lumbar discectomy History of tubal ligation History of excision of mass History of shoulder surgery Social History Household Members: Spouse Housing: Condominium Do you presently have visiting nurse or other home services: Yes Alcohol intake: never Comment: pt steady on feet, refusing all alarms Patient Tobacco Use Status: Former Tobacco user Tobacco use type: Cigarette Cigarette Packs Per Day: 4 Cigarettes Per Day: 80.0 Years Smoked: 40 e-Cigarette/Vaping Use: Currently Using Second Hand Smoke Exposure: No Substance Use Type: Marijuana Advance Directives: Yes Advance Directives on File: Yes Advance Directives Date on File: 03/09/23 Do you have a plan to hurt others: No Plan service: No Ebola Risk: Travel/Contact With Anyone From Affected Area/s: No Has Patient Experienced Ebola Symptoms: No Meds Allergies Allergy/AdvReac Type Severity Reaction Status Date / Time Iodinated Contrast Media (IV Allergy Intermediate HIVES Verified 12/07/24 21:06 CONTRAST) latex (LATEX) Allergy Unknown RASH Verified 12/07/24 21:06 adhesive tape Allergy Rash Verified 12/07/24 21:06 morphine (MORPHINE) AdvReac Unknown VOMITING Verified 12/07/24 21:06 Active Medications: Current Medications Acetaminophen (Acetaminophen 325 Mg Tablet) 650 mg PO Q6H PRN PRN Reason: Pain, Mild 1-3,fever,headache Albuterol/Ipratropium (Albuterol/Iprat 2.5/0.5mg 3 Ml Ampul.Neb) 3 ml INHALE Q4H PRN PRN Reason: Shortness of Breath/Wheezing Budesonide (Budesonide 0.5 Mg/2 Ml Ampul.Neb) 0.5 mg INHALE RBID [place] Calcium Carbonate (Calcium Carbonate 750 Mg Tab.Chew) 750 mg PO Q4H PRN PRN Reason: Heartburn Enoxaparin Sodium (Enoxaparin Sodium 40 Mg/0.4 Ml Syringe) 40 mg SUBCUT Q24H [place] Magnesium Hydroxide (Milk Of Magnesia 30 Ml Oral.Susp) 30 ml PO DAILY PRN PRN Reason: Constipation Melatonin (Melatonin 3 Mg Tablet) 6 mg PO BEDTIME PRN PRN Reason: Insomnia Methylprednisolone Sodium Succinate (Methylprednisolone Sod Succ 125 Mg Vial) 60 mg IVPUSH Q12H [place] Ondansetron HCl (Ondansetron Hcl 4 Mg/2 Ml Vial) 4 mg IVPUSH Q8H PRN PRN Reason: Nausea and Vomiting Polyethylene Glycol (Polyethylene Glycol 3350 17 Gm Powd.Pack) 17 gm PO DAILY PRN PRN Reason: Constipation Senna (Sennosides 8.6 Mg Tablet) 17.2 mg PO BEDTIME [facility] Sodium Chloride (0.9 % Sodium Chloride Flush 3 Ml Syringe) 3 ml IVFLUSH QSHIFT [facility] Home Medications ?Medication ?Instructions ?Recorded ?Confirmed ?Last Taken ?Type atorvastatin 80 mg tablet 80 mg PO DAILY@199903/04/23 12/01/24 11/29/24 History utptiuppfe-itaavtcqmwffw-ftmoeyti 1 tab PO DAILY MRX1 PRN Migraine 03/04/23 12/01/24 05/21/24 20:00 History 50 mg-325 mg-40 mg tablet Headache duloxetine 60 mg capsule,delayed 60 mg PO BID@499,199903/04/23 12/01/24 11/29/24 History release gabapentin 300 mg capsule 1,200 mg PO TID@499,1199,199903/04/23 12/01/24 11/29/24 History hyoscyamine sulfate 0.125 mg tablet 0.25 mg PO Q6H PRN Abdominal 03/04/23 12/01/24 05/21/24 20:00 History Discomfort Oxygen Home Use 04/16/23 10/29/24 10/28/24 History prazosin 2 mg capsule 2 mg PO DAILY@199904/16/23 12/01/24 11/29/24 History albuterol sulfate 90 mcg/actuation 2 puff inhalation Q4H PRN 01/31/24 12/01/24 05/21/24 20:00 History aerosol inhaler Shortness Of Breath Or Wheezing aspirin 81 mg tablet,delayed 81 mg PO DAILY@199905/22/24 12/01/24 11/29/24 History release calcium 600 mg (as 1 tab PO DAILY@199906/20/24 12/01/24 11/29/24 History carbonate)-vitamin D3 5 mcg (200 unit) tablet verapamil 120 mg tablet 120 mg PO BID@0500,199907/02/24 12/01/24 11/29/24 History lorazepam 0.5 mg tablet 1 mg PO DAILY PRN MODERATE Anxiety 08/03/24 12/01/24 10/28/24 History baclofen 20 mg tablet 20 mg PO TID@0500,1200,199910/29/24 12/01/24 11/29/24 History ciclopirox 8 % topical solution 1 appl topical DAILY PRN Fungal 10/29/24 12/01/24 10/28/24 History Infection oxycodone 5 mg tablet 5 mg PO BID PRN Severe Pain (Scale 10/29/24 12/01/24 Unknown History Score 7-10) aripiprazole 5 mg tablet 5 mg PO DAILY 12/01/24 12/01/24 11/29/24 History oxcarbazepine 300 mg tablet 300 mg PO TID 12/01/24 12/01/24 11/29/24 History Physical Exam Vital Signs and Narrative: Vital Signs: Last Vital Signs Temp 98.2 F 12/07/24 21:04 Pulse 79 12/08/24 01:02 Resp 20 12/08/24 01:02 BP 120/54 L 12/08/24 00:30 Pulse Ox 94 12/08/24 00:30 O2 Del Method Nasal Cannula 12/08/24 00:30 O2 Flow Rate 2 12/08/24 00:30 Oxygen Flow Rate 2 12/07/24 21:04 BMI result Body Mass Index 39.3 Alert and orientated X3, able to give good history. Hard of hearing on nasal cannula Neuro: CN II-X11 intact, no deficits, visual acuity intact EYES: PERRLA, EOM intact, glasses on, sclera nonicteric, conjunctiva pink ENT: hard of hearing no issues with swallowing, uvula midline, lips moist, nares patent no epistaxis Cardiac: S1 S2 RRR, systolic murmur murmur, no JVD, no edema in Lower ext Pulmonary: lungs diminished bilateral bases, expiratory wheeze noted on exam Abdominal: BS active in all 4 quadrants, no guarding, tenderness, rebounding, no distention, patient obese MSK: strength 3/5 upper and lower extremities : no CVA tenderness no bladder distension Extremities: no edema in lower extremities, PT and DP pulses palpable +2 Psych: mood stable, judgement and insight good Skin: Intact. No report of open wounds Results Labs 12/07/24 21:11 12/07/24 21:57 Labs: Laboratory Results - last 24 hr 12/07/24 12/07/24 12/07/24 21:11 21:17 21:57 MCV 97.0 MCH 32.2 MCHC 33.1 RDW 13.8 Plt Count 350 MPV 9.1 L Immature Gran % (Auto) 0.6 H Neut % (Auto) 58.2 Lymph % (Auto) 27.0 [place] % (Auto) 8.7 Eos % (Auto) 4.9 H Baso % (Auto) 0.6 Lymph # (Auto) 2.3 [place] # (Auto) 0.7 Eos # (Auto) 0.4 Baso # (Auto) 0.1 Abs Immat Gran (auto) 0.05 H Absolute Neuts (auto) 4.9 Absolute Nucleated RBC 0.000 Nucleated RBC % (auto) 0.0 VBG pH 7.47 H VBG pCO2 51 VBG pO2 102 VBG HCO3 38 H VBG O2 Saturation 99.0 VBG Base Excess 12.9 Anion Gap 11 L Estim Creat Clear Calc 53.4 Estimated GFR 47 Random Glucose 227 H Calcium 9.3 Total Bilirubin 0.2 AST 23 ALT 15 Alkaline Phosphatase 52 Troponin I High Sens 29.2 H B-Natriuretic Peptide 16 Total Protein 6.0 L Albumin 3.8 Influenza Type A (PCR) NEGATIVE Influenza Type B (PCR) NEGATIVE RSV RNA Qual (PCR) NEGATIVE SARS-CoV-2 RNA (RT-PCR) NEGATIVE ECG Attestation: I personally reviewed and interpreted this ECG as follows: (Normal sinus rhythm, nonspecific ST abnormality inferior leads only, QTC 447) Imaging Radiologist's Impressions: Chest x-ray Negative for acute findings No cardiomegaly Assessment and Plan (1) COPD exacerbation: Status: Acute Plan Patient is a 59-year-old female with past medical history COPD/emphysema on home O2 1-3 L, tobacco dependence, hypertension, hyperlipidemia, nephrolithiasis, CVA, obesity , moderate aortic stenosis with small pericardial effusion noted from echo 12/01/2024, trigeminal neuralgia, occipital neuralgia, chronic pain syndrome, JUANITO but does not tolerate CPAP, depression/ anxiety, urinary incontinence is being admitted for COPD exacerbation. Acute hypoxic respiratory failure -VBG reassuring -Patient currently on 3 L, PO2 92% -Continue duo nebs and budesonide b.i.d. -Continue methylprednisolone 60 mg IV b.i.d. -Incentive spirometry -Patient follows with Dr. Henriquez in the outpatient setting -Recent admission noted moderate aortic stenosis with pericardial effusion, cardiology consulted COPD exacerbation -Duo nebs p.r.n. for shortness of breath and wheezing -Budesonide b.i.d. -Methylprednisolone 60 b.i.d. -Supportive -Incentive spirometry -All viral studies are negative Moderate aortic stenosis/ pericardial effusion -This was found via echo last admission 12/01 - 12/05 -EF greater than 70%, abnormal diastolic function but no wall abnormalities -No diffuse ST changes on EKG -Patient was not seen by Cardiology. Consult to cardiology placed -Patient did not do well diuretics prescribed by her PCP and became severely hypotensive requiring ICU admission 12/01/2024 -Patient received IV fluids in the ED -BNP 16 -Troponins 29.2 -Orthostatics ordered, unclear if pt will be able to stand fro long enough time to obtain results -TEDS JUANITO -Pt will not be able to tolerate CPAP -CO2 monitoring HLD -continue Statin, LFTs stable Hyperglycemia -Patient did receive IV steroids but blood sugar was elevated as previous admission -Checking A1c -May require sliding scale insulin coverage Trigeminal and occipital neuralgia -Prescribed patient 1 time dose for 05:00 of her gabapentin, oxcarbazepine, baclofen and duloxetine DVT prophylaxis: Lovenox PPI prophylaxis: Omeprazole Med rec pending Full code status Quality Stroke Does the patient have a stroke diagnosis?: No Reason for No Anti-thrombotic by Day Two: N/A - Med Ordered VTE Prior VTE?: No VTE Risk Level:: Medical - moderate - high VTE Device Contraindication: N/A - Device Ordered VTE Drug Contraindication: N/A - Med Ordered
[2024-12-08 06:19] LABS: Hematocrit 36.0 % (37.0-47.0); Hemoglobin 11.6 g/dl (12.0-16.0); Imm Gran Abs Auto 0.05 X10*3/uL (0.00-0.03); Imm Gran Pct Auto 0.6 % (0.0-0.4); Lymphocytes Absolute Auto 0.3 X10*3/uL (1.2-4.9); MANUAL DIFF FLAG SCAN; Mean Corpuscular HGB Conc 32.2 g/dl (31.0-35.0); Mean Corpuscular Hemoglobin 31.9 pg (27.0-33.0); Mean Corpuscular Volume 98.9 fL (80.0-98.0); NRBC Abs Auto 0.000 X10*3/uL (0.0-0.012); NRBC Pct Auto 0.0 /100WBC (0.0-0.2); Platelet Count 361 X10*3/uL (160-400); Red Blood Count 3.64 X10*6/uL (4.20-5.50); SCAN SMEAR FLAG 1; White Blood Count 9.0 X10*3/uL (4.8-10.8)
[2024-12-08 06:56] LABS: Alanine Aminotransferase 18 U/L (0-31); Albumin Level 4.2 g/dL (3.5-5.0); Alkaline Phosphatase 56 U/L (39-117); Anion Gap 13 (12-20); Aspartate Amino Transferase 23 U/L (5-31); Blood Urea Nitrogen 14 mg/dL (9-16); Calcium 8.8 mg/dL (8.4-10.2); Carbon Dioxide 27 mmol/L (22-29); Chloride 105 mmol/L (96-108); Creatinine Clr Calc Pharmacy 80.4; Estimated Glomerular Filt Rate > 60; Potassium 4.2 mmol/L (3.3-5.1); Sodium 141 mmol/L (135-145); Total Protein 6.8 g/dL (6.5-8.0)
--- NOTE | 2024-12-08 07:18 | PC.NURSE ---
Medical History Panic disorder Hypertension Chronic hypercapnic respiratory failure Aortic stenosis Obesity (BMI 30-39.9) Asthma Acute exacerbation of chronic obstructive pulmonary disease Chronic lung disease Hypogammaglobulinemia Smoker JUANITO (obstructive sleep apnea) Allergies Elevated troponin COPD (chronic obstructive pulmonary disease) Trigeminal neuralgia Pulmonary nodules Mixed hyperlipidemia Peripheral neuropathy Tobacco use disorder Mood disorder
[2024-12-08 07:20] LABS: Hemoglobin A1C 115.1607 umol/L; Total Hemoglobin (HGBA1C) 3106.6139 umol/L
--- NOTE | 2024-12-08 08:19 | PC.NURSE ---
Addendum entered by Kika Calles RN 12/08/24 08:20: Patient is a 59-year-old female with past medical history COPD/emphysema on home O2 1-3 L, tobacco dependence, hypertension, hyperlipidemia, nephrolithiasis, CVA, obesity , moderate aortic stenosis with small pericardial effusion noted from echo 12/01/2024, trigeminal neuralgia, occipital neuralgia, chronic pain syndrome, JUANITO but does not tolerate CPAP, depression/ anxiety, urinary incontinence was brought in by ambulance to the emergency department with complaints of shortness of breath persisting over 24 hours. Chest x-ray negative for any acute findings. Patient had just been discharged from the hospital 12/05/2024 status post admission 12/01/2024 for significant hypotension status post starting Lasix where she was told she recently was diagnosed with CHF. Patient was also very somnolent at that time. Echo revealed a hyperdynamic EF of 70% and moderate aortic stenosis with a small pericardial effusion. Patient had some abnormal diastolic dysfunction but no other wall abnormalities noted. Patient alert and oriented, needy at times, needs encouragement to complete simple ADL's. hangar attendant maintained and NSR noted. Lungs extremely diminished more so on the right. Abdomen large, soft, non-tender with positive bowel sounds. Positive pedal pulses with no edema. Original Note: Medical History Panic disorder Hypertension Chronic hypercapnic respiratory failure Aortic stenosis Obesity (BMI 30-39.9) Asthma Acute exacerbation of chronic obstructive pulmonary disease Chronic lung disease Hypogammaglobulinemia Smoker JUANITO (obstructive sleep apnea) Allergies Elevated troponin COPD (chronic obstructive pulmonary disease) Trigeminal neuralgia Pulmonary nodules Mixed hyperlipidemia Peripheral neuropathy Tobacco use disorder Mood disord
[2024-12-08] MEDS: guaiFENesin LA 600 MG TAB.ER.12H PO ×2 (08:31→21:18)
[2024-12-08] MEDS: 0.9 % Sodium Chloride Flush 3 ML SYRINGE IVFLUSH ×3 (08:32→21:17)
--- NOTE | 2024-12-08 09:01 | PHA.MEDREC ---
Pharmacy Consult ? Medication Reconciliation Pharmacy has completed the medication reconciliation. Spoke with patient, she states there are no changes since her last admission. Utilized discharge packet from 12/05/24.
--- NOTE | 2024-12-08 16:17 | PM.EVENT ---
Event Note Date of Service: 12/09/24 Event Note: Patient seen and examined by hospitalist service this morning, seen and examined again Shortness of breadth and blood pressure seems to be improving Physical exam and assessment and plan as per the HPI Discussed with the Cardiology-less likely currently aortic stone is in pericardial effusion related symptoms-patient is off diuretic last admission. We will hold valsartan for now. Monitor blood pressure closely. COPD exacerbation matos patient seems to be improving shortness of breath, continue current management as per HPI. Hyperglycemia : Hemoglobin A1c is 5.5. Time Spent With Patient Time: Total time managing care of this patient today ____ minutes.
--- NOTE | 2024-12-08 16:27 | MHC.CM.PN ---
PT REPORTS SHE LIVES WITH HER AND IS TYPICALLY INDEPENDENT WITH PERSONAL CARE SHE WAS ACTIVE WITH [facility] SHE HAS A ROLLATOR AND O2 FROM [facility] HCP ON FILE PCP: MILES DAVIS DCP: PT SAYS SHE WILL CONSIDER STR IF [facility]AT[facility] ACCEPTS OTHERWISE, SHE WILL DC HOME WITH [facility] BLS VS PRIVATE TRANSPORT
[2024-12-08] MEDS: Aspirin Enteric Coated 81 MG TABLET.DR PO (21:18)
[2024-12-08] MEDS: guaiFENesin DM 600/30 1 TAB TAB.ER.12H PO (21:19)
[2024-12-08] MEDS: Calcium + Vitamin D 250 MG TABLET 500 MG PO (21:19)
[2024-12-08] MEDS: oxyCODONE HCl Immed Release 5 MG TABLET PO (21:19)
[2024-12-09] VITALS (12 sets, daily range): BP systolic 131–186; BP diastolic 58–88; PULSE 74–93; RESP 16–20; TEMP 36.6; O2SAT 2–100
[2024-12-09] MEDS: Albuterol/Iprat 2.5/0.5MG 3 ML AMPUL.NEB INHALE ×3 (01:19→20:45)
--- NOTE | 2024-12-09 04:34 | MHC.PIE ---
p; pt asking trileptal with her 0500 meds, note; trileptal not scheduled till 0900? i; dr ybarra notified. ook to give trileptal now e; will cont to [facility]
[2024-12-09] MEDS: 0.9 % Sodium Chloride Flush 3 ML SYRINGE IVFLUSH ×3 (09:06→21:18)
[2024-12-09] MEDS: guaiFENesin DM 600/30 1 TAB TAB.ER.12H PO ×2 (09:06→21:19)
--- NOTE | 2024-12-09 09:59 | P.PNIM_ITS ---
Subjective Subjective Date of Service: 12/09/24 Interval History: copd execerebation mild lightheadness Review of Systems says symptoms improving ,now oob. Review of Systems: Yes all other systems are reviewed and are negative Physical Exam 2 Vital Signs: Vital Signs: Last Vital Signs Temp 97.8 F 12/09/24 08:32 Pulse 75 12/09/24 08:32 Resp 20 12/09/24 08:32 BP 131/58 L 12/09/24 08:32 Pulse Ox 100 12/09/24 08:32 O2 Del Method Room Air 12/09/24 08:32 O2 Flow Rate 2 12/08/24 20:00 Oxygen Flow Rate 2 12/07/24 21:04 BMI result Body Mass Index 38.9 Appearance: Alert.? Oriented X3. cvs: rrr, [id number] . res: clear to auscultation ,no rhonchii or wheezing abd: no rebound or guarding ,nt, bs present. ext pulses present , no cyanosis . neuro: axo3 , nonfocal. Objective Data Active Medications Acetaminophen (Acetaminophen 325 Mg Tablet) 650 mg PO Q6H PRN PRN Reason: Pain, Mild 1-3,fever,headache Acetaminophen/Butalbital/Caffeine (Butalb/Acetamin/Caff 50/325/40 Tablet) 1 tab PO DAILY MRX1 PRN PRN Reason: Migraine Headache Albuterol Sulfate (Albuterol Sulfate 90 Mcg 8 Gm Inhaler) 2 puff INHALE Q4H PRN PRN Reason: Shortness Of Breath Or Wheezing Albuterol/Ipratropium (Albuterol/Iprat 2.5/0.5mg 3 Ml Ampul.Neb) 3 ml INHALE Q4H PRN PRN Reason: Shortness of Breath/Wheezing Last Admin: 12/09/24 01:19 Dose: 3 ml Documented By: MARKO Aripiprazole (Aripiprazole 5 Mg Tablet) 5 mg PO DAILY REPLACED BY [facility] Last Admin: 12/09/24 08:37 Dose: 5 mg Documented By: HIEU Aspirin (Aspirin Enteric Coated 81 Mg Tablet.) 81 mg PO DAILY@1999 REPLACED BY [facility] Last Admin: 12/08/24 21:18 Dose: 81 mg Documented By: LOUIE Atorvastatin Calcium (Atorvastatin Calcium 80 Mg Tablet) 80 mg PO DAILY@1999 REPLACED BY [facility] Last Admin: 12/08/24 21:18 Dose: 80 mg Documented By: LOUIE Baclofen (Baclofen 20 Mg Tablet) 20 mg PO TID@499, REPLACED BY [facility] Last Admin: 12/09/24 04:17 Dose: 20 mg Documented By: LOUIE Benzonatate (Benzonatate 100 Mg Capsule) 100 mg PO TID PRN PRN Reason: Cough Last Admin: 12/09/24 08:37 Dose: 100 mg Documented By: HIEU Budesonide (Budesonide 0.5 Mg/2 Ml Ampul.Neb) 0.5 mg INHALE RBID REPLACED BY [facility] Last Admin: 12/09/24 08:06 Dose: 0.5 mg Documented By: WILL Calcium Carbonate (Calcium Carbonate 750 Mg Tab.Chew) 750 mg PO Q4H PRN PRN Reason: Heartburn Last Admin: 12/08/24 22:08 Dose: 750 mg Documented By: LOUIE Calcium Carbonate/Cholecalciferol (Calcium + Vitamin D 250 Mg Tablet) 500 mg PO DAILY@1999 REPLACED BY [facility] Last Admin: 12/08/24 21:19 Dose: 500 mg Documented By: LOUIE Duloxetine HCl (Duloxetine Hcl 60 Mg Capsule.Dr) 60 mg PO BID@ REPLACED BY [facility] Last Admin: 12/09/24 04:18 Dose: 60 mg Documented By: LOUIE Enoxaparin Sodium (Enoxaparin Sodium 40 Mg/0.4 Ml Syringe) 40 mg SUBCUT Q24H REPLACED BY [facility] Last Admin: 12/09/24 08:45 Dose: 40 mg Documented By: HIEU Gabapentin (Gabapentin 400 Mg Capsule) 1,200 mg PO TID@499, REPLACED BY [facility] Last Admin: 12/09/24 04:18 Dose: 1,200 mg Documented By: LOUIE Guaifenesin/Dextromethorphan (Guaifenesin Dm 600/30 1 Tab Tab.Er.12h) 1 tab PO BID REPLACED BY [facility] Last Admin: 12/09/24 09:06 Dose: 1 tab Documented By: HIEU Lorazepam (Lorazepam 1 Mg Tablet) 1 mg PO DAILY PRN PRN Reason: MODERATE Anxiety Last Admin: 12/08/24 21:19 Dose: 1 mg Documented By: LOUIE Magnesium Hydroxide (Milk Of Magnesia 30 Ml Oral.Susp) 30 ml PO DAILY PRN PRN Reason: Constipation Melatonin (Melatonin 3 Mg Tablet) 6 mg PO BEDTIME PRN PRN Reason: Insomnia Methylprednisolone Sodium Succinate (Methylprednisolone Sod Succ 40 Mg Vial) 40 mg IVPUSH Q12H REPLACED BY [facility] Last Admin: 12/09/24 08:38 Dose: 40 mg Documented By: HIEU Non-Formulary Medication (Ciclopirox) 1 appl TOPICAL DAILY PRN PRN Reason: Fungal Infection Pt Own (Hyoscyamine Sulfate 0.125 Mg Tablet) 0.25 mg PO Q6H PRN PRN Reason: Abdominal Discomfort Omeprazole (Omeprazole 20 Mg Capsule.Dr) 20 mg PO DAILY@629 REPLACED BY [facility] Last Admin: 12/09/24 04:18 Dose: 20 mg Documented By: LOUIE Comments: given per pt request Ondansetron HCl (Ondansetron Hcl 4 Mg/2 Ml Vial) 4 mg IVPUSH Q8H PRN PRN Reason: Nausea and Vomiting Oxcarbazepine (Oxcarbazepine 300 Mg Tablet) 300 mg PO TID@0500,1200,1999 REPLACED BY [facility] Oxycodone HCl (Oxycodone Hcl Immed Release 5 Mg Tablet) 5 mg PO BID PRN PRN Reason: Severe Pain (Scale Score 7-10) Last Admin: 12/08/24 21:19 Dose: 5 mg Documented By: LOUIE Polyethylene Glycol (Polyethylene Glycol 3350 17 Gm Powd.Pack) 17 gm PO DAILY PRN PRN Reason: Constipation Prazosin HCl (Prazosin Hcl 1 Mg Capsule) 2 mg PO DAILY@1999 REPLACED BY [facility]; Protocol Last Admin: 12/08/24 21:19 Dose: 2 mg Documented By: LOUIE Roflumilast (Roflumilast 500 Mcg Tablet) 500 mcg PO DAILY REPLACED BY [facility] Last Admin: 12/09/24 08:36 Dose: 500 mcg Documented By: HIEU Senna (Sennosides 8.6 Mg Tablet) 17.2 mg PO BEDTIME REPLACED BY [facility] Last Admin: 12/08/24 21:17 Dose: 17.2 mg Documented By: LOUIE Sodium Chloride (0.9 % Sodium Chloride Flush 3 Ml Syringe) [facility] Last Admin: 12/09/24 09:06 Dose: 3 ml Documented By: HIEU Verapamil HCl (Verapamil Hcl 120 Mg Tablet) 120 mg PO BID@0500,1999 REPLACED BY [facility]; Protocol Last Admin: 12/09/24 04:17 Dose: 120 mg Documented By: LOUIE Thompson 12/08/24 05:25 12/08/24 05:25 Assessment and Plan (1) Hypotension: Status: Acute Plan 59-year-old female with past medical history COPD/emphysema on home O2 1-3 L, tobacco dependence, hypertension, hyperlipidemia, nephrolithiasis, CVA, obesity , moderate aortic stenosis with small pericardial effusion noted from echo 12/01/2024, trigeminal neuralgia, occipital neuralgia, chronic pain syndrome, JUANITO but does not tolerate CPAP, depression/ anxiety, urinary incontinence is being admitted for COPD exacerbation. Acute on ch hypoxic respiratory failure in setting of copd excerebation vbg seems fine ,cxr negative flu/rsv/covid test negative plan: patient started on nebs,steriods ,taper oxygen,incentive spirometry,chest physiotherapy to her baseline if possible follows with Dr. Henriquez in the outpatient setting Moderate aortic stenosis/ mild pericardial effusion This was found via echo last admission 12/01 - 12/05 EF greater than 70%, abnormal diastolic function but no wall abnormalities,No diffuse ST changes on EKG did not do well diuretics prescribed by her PCP and became severely hypotensive requiring ICU admission 12/01/2024 Patient received IV fluids in the ED BNP 16,Troponins 23.9-29.2,No diffuse ST changes on EKG telemtry seems fine plan: d/w cardiology : hypotension episode-reolved with hydration/holding bp meds) likely related to bp meds and dec po intake. hold diuretics and valsartan will also check Orthostatics,TEDS JUANITO:Pt will not be able to tolerate CPAP CO2 monitoring HLD-continue Statin, LFTs stable Hyperglycemia: due to steriod use A1c5.5 Trigeminal and occipital neuralgia on gabapentin, oxcarbazepine, baclofen and duloxetine. Generalised weak-added pt eval DVT prophylaxis: Lovenox PPI prophylaxis: Omeprazole Ongoing need:copd excerebation -needs nebs /steriods ,taper oxygen , patient repirtory status not optimal yet,also has lightheadness -moniter for orthostasis and bp meds adjustment Quality Stroke Does the patient have a stroke diagnosis?: No Reason for No Anti-thrombotic by Day Two: N/A - Med Ordered VTE Prior VTE?: No VTE Risk Level:: Medical - moderate - high VTE Device Contraindication: N/A - Device Ordered VTE Drug Contraindication: N/A - Med Ordered
[2024-12-09] MEDS: oxyCODONE HCl Immed Release 5 MG TABLET PO ×2 (12:05→23:38)
--- NOTE | 2024-12-09 13:59 | MHC.CM.PN ---
PT rec STR. Referrals to [facility] per patient request. Awaiting responses.
[2024-12-09] MEDS: Calcium + Vitamin D 250 MG TABLET 500 MG PO (21:18)
[2024-12-09] MEDS: Aspirin Enteric Coated 81 MG TABLET.DR PO (21:19)
[2024-12-10] VITALS (12 sets, daily range): BP systolic 138–193; BP diastolic 71–84; PULSE 73–88; RESP 16–20; TEMP 36.1–36.6; O2SAT 94–98; BMI 38.8
[2024-12-10] MEDS: HYOSCYAMINE SULFATE 0.125 MG 0.25 EACH PO ×2 (05:36→12:19)
[2024-12-10] MEDS: 0.9 % Sodium Chloride Flush 3 ML SYRINGE IVFLUSH ×3 (08:47→21:08)
[2024-12-10] MEDS: guaiFENesin DM 600/30 1 TAB TAB.ER.12H PO ×2 (08:50→21:18)
[2024-12-10] MEDS: Albuterol/Iprat 2.5/0.5MG 3 ML AMPUL.NEB INHALE ×2 (12:24→19:37)
--- NOTE | 2024-12-10 13:10 | P.PNIM_ITS ---
Subjective Subjective Date of Service: 12/10/24 Interval History: copd excerebation Review of Systems sob seems improving no new c/o. Physical Exam 2 Vital Signs: Vital Signs: Last Vital Signs Temp 98 F 12/10/24 12:45 Pulse 84 12/10/24 12:45 Resp 18 12/10/24 12:45 BP 138/83 12/10/24 12:45 Pulse Ox 94 12/10/24 12:45 O2 Del Method Nasal Cannula 12/10/24 12:45 O2 Flow Rate 2 12/10/24 12:45 Oxygen Flow Rate 2 12/07/24 21:04 BMI result Body Mass Index 38.8 Appearance: Alert.? Oriented X3. cvs: [id number], [id number] . res: clear to auscultation ,no rhonchii or wheezing abd: no rebound or guarding ,nt, bs present. ext pulses present , no cyanosis . neuro: axo3 , nonfocal. Objective Data Active Medications Acetaminophen (Acetaminophen 325 Mg Tablet) 650 mg PO Q6H PRN PRN Reason: Pain, Mild 1-3,fever,headache Acetaminophen/Butalbital/Caffeine (Butalb/Acetamin/Caff 50/325/40 Tablet) 1 tab PO DAILY MRX1 PRN PRN Reason: Migraine Headache Albuterol Sulfate (Albuterol Sulfate 90 Mcg 8 Gm Inhaler) 2 puff INHALE Q4H PRN PRN Reason: Shortness Of Breath Or Wheezing Albuterol/Ipratropium (Albuterol/Iprat 2.5/0.5mg 3 Ml Ampul.Neb) 3 ml INHALE Q4H PRN PRN Reason: Shortness of Breath/Wheezing Last Admin: 12/10/24 12:24 Dose: 3 ml Documented By: FABI Aripiprazole (Aripiprazole 5 Mg Tablet) 5 mg PO DAILY [facility] Last Admin: 12/10/24 08:50 Dose: 5 mg Documented By: HIEU Aspirin (Aspirin Enteric Coated 81 Mg Tablet.) 81 mg PO DAILY@1999 [facility] Last Admin: 12/09/24 21:19 Dose: 81 mg Documented By: LOUIE Atorvastatin Calcium (Atorvastatin Calcium 80 Mg Tablet) 80 mg PO DAILY@1999 [facility] Last Admin: 12/09/24 21:19 Dose: 80 mg Documented By: LOUIE Baclofen (Baclofen 20 Mg Tablet) 20 mg PO TID@0500,1199,1999 [facility] Last Admin: 12/10/24 12:19 Dose: 20 mg Documented By: HIEU Benzonatate (Benzonatate 100 Mg Capsule) 100 mg PO TID PRN PRN Reason: Cough Last Admin: 12/09/24 21:20 Dose: 100 mg Documented By: LOUIE Budesonide (Budesonide 0.5 Mg/2 Ml Ampul.Neb) 0.5 mg INHALE RBID [facility] Last Admin: 12/10/24 07:47 Dose: 0.5 mg Documented By: WILL Calcium Carbonate (Calcium Carbonate 750 Mg Tab.Chew) 750 mg PO Q4H PRN PRN Reason: Heartburn Last Admin: 12/08/24 22:08 Dose: 750 mg Documented By: LOUIE Calcium Carbonate/Cholecalciferol (Calcium + Vitamin D 250 Mg Tablet) 500 mg PO DAILY@1999 [facility] Last Admin: 12/09/24 21:18 Dose: 500 mg Documented By: LOUIE Clotrimazole (Clotrimazole 1 % Cream 15 Gm Tube) 1 appl TOPICAL DAILY PRN PRN Reason: Fungal Infection Duloxetine HCl (Duloxetine Hcl 60 Mg Capsule.Dr) 60 mg PO BID@ [facility] Last Admin: 12/10/24 05:35 Dose: 60 mg Documented By: LOUIE Enoxaparin Sodium (Enoxaparin Sodium 40 Mg/0.4 Ml Syringe) 40 mg SUBCUT Q24H [facility] Last Admin: 12/10/24 08:51 Dose: 40 mg Documented By: HIEU Gabapentin (Gabapentin 400 Mg Capsule) 1,200 mg PO TID@499, [facility] Last Admin: 12/10/24 12:18 Dose: 1,200 mg Documented By: HIEU Guaifenesin/Dextromethorphan (Guaifenesin Dm 600/30 1 Tab Tab.Er.12h) 1 tab PO BID [facility] Last Admin: 12/10/24 08:50 Dose: 1 tab Documented By: HIEU Lorazepam (Lorazepam 1 Mg Tablet) 1 mg PO DAILY PRN PRN Reason: MODERATE Anxiety Last Admin: 12/10/24 05:45 Dose: 1 mg Documented By: LOUIE Magnesium Hydroxide (Milk Of Magnesia 30 Ml Oral.Susp) 30 ml PO DAILY PRN PRN Reason: Constipation Melatonin (Melatonin 3 Mg Tablet) 6 mg PO BEDTIME PRN PRN Reason: Insomnia Methylprednisolone Sodium Succinate (Methylprednisolone Sod Succ 40 Mg Vial) 40 mg IVPUSH Q12H [facility] Last Admin: 12/10/24 08:48 Dose: 40 mg Documented By: HIEU Pt Own (Hyoscyamine Sulfate 0.125 Mg Tablet) 0.25 mg PO Q6H PRN PRN Reason: Abdominal Discomfort Last Admin: 12/10/24 12:19 Dose: 0.25 mg Documented By: HIEU Omeprazole (Omeprazole 20 Mg Capsule.) 20 mg PO DAILY@629 [facility] Last Admin: 12/10/24 05:35 Dose: 20 mg Documented By: LOUIE Ondansetron HCl (Ondansetron Hcl 4 Mg/2 Ml Vial) 4 mg IVPUSH Q8H PRN PRN Reason: Nausea and Vomiting Oxcarbazepine (Oxcarbazepine 300 Mg Tablet) 300 mg PO TID@0500,1200,1999 [facility] Last Admin: 12/10/24 12:20 Dose: Not Given Documented By: HIEU Non-Admin Reason: Patient Refused Oxycodone HCl (Oxycodone Hcl Immed Release 5 Mg Tablet) 5 mg PO BID PRN PRN Reason: Severe Pain (Scale Score 7-10) Last Admin: 12/09/24 23:38 Dose: 5 mg Documented By: LOUIE Polyethylene Glycol (Polyethylene Glycol 3350 17 Gm Powd.Pack) 17 gm PO DAILY PRN PRN Reason: Constipation Prazosin HCl (Prazosin Hcl 1 Mg Capsule) 2 mg PO DAILY@1999 [facility]; Protocol Last Admin: 12/09/24 21:21 Dose: 2 mg Documented By: LOUIE Roflumilast (Roflumilast 500 Mcg Tablet) 500 mcg PO DAILY [facility] Last Admin: 12/10/24 08:50 Dose: 500 mcg Documented By: HIEU Senna (Sennosides 8.6 Mg Tablet) 17.2 mg PO BEDTIME [facility] Last Admin: 12/09/24 21:20 Dose: 17.2 mg Documented By: LOUIE Sodium Chloride (0.9 % Sodium Chloride Flush 3 Ml Syringe) 3 ml IVFLUSH QSHIFT [facility] Last Admin: 12/10/24 08:47 Dose: 3 ml Documented By: HIEU Valsartan (Valsartan 40 Mg Tablet) 40 mg PO DAILY [facility]; Protocol Last Admin: 12/10/24 08:50 Dose: 40 mg Documented By: HIEU Verapamil HCl (Verapamil Hcl 120 Mg Tablet) 120 mg PO BID@0500,2000 [facility]; Protocol Last Admin: 12/10/24 05:35 Dose: 120 mg Documented By: LOIUE Labs 12/08/24 05:25 12/08/24 05:25 Assessment and Plan (1) COPD exacerbation: Status: Acute (2) Hypotension: Status: Acute Plan 59-year-old female with past medical history COPD/emphysema on home O2 1-3 L, tobacco dependence, hypertension, hyperlipidemia, nephrolithiasis, CVA, obesity , moderate aortic stenosis with small pericardial effusion noted from echo 12/01/2024, trigeminal neuralgia, occipital neuralgia, chronic pain syndrome, JUANITO but does not tolerate CPAP, depression/ anxiety, urinary incontinence is being admitted for COPD exacerbation. Acute on ch hypoxic respiratory failure in setting of copd excerebation vbg seems fine ,cxr negative flu/rsv/covid test negative plan: patient started on nebs,steriods ,taper oxygen,incentive spirometry,chest physiotherapy to her baseline if possible follows with Dr. Henriquez in the outpatient setting Moderate aortic stenosis/ mild pericardial effusion This was found via echo last admission 12/01 - 12/05 EF greater than 70%, abnormal diastolic function but no wall abnormalities,No diffuse ST changes on EKG did not do well diuretics prescribed by her PCP and became severely hypotensive requiring ICU admission 12/01/2024 Patient received IV fluids in the ED BNP 16,Troponins 23.9-29.2,No diffuse ST changes on EKG telemtry seems fine plan: d/w cardiology : hypotension episode-reolved with hydration/holding bp meds) likely related to bp meds and dec po intake. no orthostasis.now asymptomatic possible blood pressure flactautions sec to diuretics ,bp meds valsartan adjusted . JUANITO:Pt will not be able to tolerate CPAP CO2 monitoring HLD-continue Statin, LFTs stable Hyperglycemia: due to steriod use A1c5.5 Trigeminal and occipital neuralgia conintue on gabapentin, oxcarbazepine, baclofen and duloxetine. Generalised weak-added pt eval. DVT prophylaxis: Lovenox PPI prophylaxis: Omeprazole Ongoing need:copd excerebation -needs nebs /steriods ,taper oxygen , patient repirtory status not optimal yet,rehab placement. Quality Stroke Does the patient have a stroke diagnosis?: No Reason for No Anti-thrombotic by Day Two: N/A - Med Ordered VTE Prior VTE?: No VTE Risk Level:: Medical - moderate - high VTE Device Contraindication: N/A - Device Ordered VTE Drug Contraindication: N/A - Med Ordered
[2024-12-10] MEDS: oxyCODONE HCl Immed Release 5 MG TABLET PO (20:55)
[2024-12-10] MEDS: Calcium + Vitamin D 250 MG TABLET 500 MG PO (21:03)
[2024-12-10] MEDS: Aspirin Enteric Coated 81 MG TABLET.DR PO (21:07)
[2024-12-11] VITALS (11 sets, daily range): BP systolic 148–168; BP diastolic 67–75; PULSE 67–97; RESP 12–20; TEMP 36.1–36.4; O2SAT 94–96; BMI 36.5
[2024-12-11] MEDS: Albuterol Sulfate 90 MCG 8 GM INHALER 2 PUFF INHALE (09:31)
[2024-12-11] MEDS: guaiFENesin DM 600/30 1 TAB TAB.ER.12H PO ×2 (09:31→20:24)
[2024-12-11] MEDS: HYOSCYAMINE SULFATE 0.125 MG 0.25 EACH PO (09:32)
[2024-12-11] MEDS: 0.9 % Sodium Chloride Flush 3 ML SYRINGE IVFLUSH ×3 (09:57→20:36)
[2024-12-11] MEDS: oxyCODONE HCl Immed Release 5 MG TABLET PO (11:51)
--- NOTE | 2024-12-11 12:27 | HO.PM.IMPN ---
Subjective Subjective Date of Service: 12/11/24 Interval History: copd execerbation Review of Systems sob improving also walking better ,dizziness improving Physical Exam Vital Signs: Vital Signs: Last Vital Signs Temp 97.0 F 12/11/24 08:15 Pulse 97 12/11/24 11:20 Resp 18 12/11/24 08:41 BP 148/67 H 12/11/24 08:15 Pulse Ox 96 12/11/24 08:15 O2 Del Method Nasal Cannula 12/11/24 08:15 O2 Flow Rate 2 12/11/24 08:15 Oxygen Flow Rate 2 12/07/24 21:04 BMI result Body Mass Index 36.5 Appearance: Alert.? Oriented X3. cvs: [id number], [id number] . res: clear to auscultation ,no rhonchii or wheezing abd: no rebound or guarding ,nt, bs present. ext pulses present , no cyanosis . neuro: axo3 , nonfocal. Objective Data Active Medications Acetaminophen (Acetaminophen 325 Mg Tablet) 650 mg PO Q6H PRN PRN Reason: Pain, Mild 1-3,fever,headache Acetaminophen/Butalbital/Caffeine (Butalb/Acetamin/Caff 50/325/40 Tablet) 1 tab PO DAILY MRX1 PRN PRN Reason: Migraine Headache Albuterol Sulfate (Albuterol Sulfate 90 Mcg 8 Gm Inhaler) 2 puff INHALE Q4H PRN PRN Reason: Shortness Of Breath Or Wheezing Last Admin: 12/11/24 09:31 Dose: 2 puff Documented By: ELOISE Albuterol/Ipratropium (Albuterol/Iprat 2.5/0.5mg 3 Ml Ampul.Neb) 3 ml INHALE Q4H PRN PRN Reason: Shortness of Breath/Wheezing Last Admin: 12/10/24 19:37 Dose: 3 ml Documented By: JOHN Aripiprazole (Aripiprazole 5 Mg Tablet) 5 mg PO DAILY [facility] Last Admin: 12/11/24 09:31 Dose: 5 mg Documented By: ELOISE Aspirin (Aspirin Enteric Coated 81 Mg Tablet.) 81 mg PO DAILY@1999 [facility] Last Admin: 12/10/24 21:07 Dose: 81 mg Documented By: TASHI Atorvastatin Calcium (Atorvastatin Calcium 80 Mg Tablet) 80 mg PO DAILY@1999 [facility] Last Admin: 12/10/24 21:02 Dose: 80 mg Documented By: TASHI Baclofen (Baclofen 20 Mg Tablet) 20 mg PO TID@499, [facility] Last Admin: 12/11/24 11:51 Dose: 20 mg Documented By: ELOISE Benzonatate (Benzonatate 100 Mg Capsule) 100 mg PO TID PRN PRN Reason: Cough Last Admin: 12/10/24 20:54 Dose: 100 mg Documented By: TASHI Budesonide (Budesonide 0.5 Mg/2 Ml Ampul.Neb) 0.5 mg INHALE RBID [facility] Last Admin: 12/11/24 08:38 Dose: 0.5 mg Documented By: COSME Calcium Carbonate (Calcium Carbonate 750 Mg Tab.Chew) 750 mg PO Q4H PRN PRN Reason: Heartburn Last Admin: 12/08/24 22:08 Dose: 750 mg Documented By: LOUIE Calcium Carbonate/Cholecalciferol (Calcium + Vitamin D 250 Mg Tablet) 500 mg PO DAILY@1999 [facility] Last Admin: 12/10/24 21:03 Dose: 500 mg Documented By: TASHI Clotrimazole (Clotrimazole 1 % Cream 15 Gm Tube) 1 appl TOPICAL DAILY PRN PRN Reason: Fungal Infection Duloxetine HCl (Duloxetine Hcl 60 Mg Capsule.Dr) 60 mg PO BID@ [facility] Last Admin: 12/11/24 05:19 Dose: 60 mg Documented By: LOUIE Enoxaparin Sodium (Enoxaparin Sodium 40 Mg/0.4 Ml Syringe) 40 mg SUBCUT Q24H [facility] Last Admin: 12/11/24 09:30 Dose: 40 mg Documented By: ELOISE Gabapentin (Gabapentin 400 Mg Capsule) 1,200 mg PO TID@499, [facility] Last Admin: 12/11/24 11:53 Dose: 1,200 mg Documented By: ELOISE Guaifenesin/Dextromethorphan (Guaifenesin Dm 600/30 1 Tab Tab.Er.12h) 1 tab PO BID [facility] Last Admin: 12/11/24 09:31 Dose: 1 tab Documented By: ELOISE Lorazepam (Lorazepam 1 Mg Tablet) 1 mg PO DAILY PRN PRN Reason: MODERATE Anxiety Last Admin: 12/10/24 05:45 Dose: 1 mg Documented By: LOUIE Magnesium Hydroxide (Milk Of Magnesia 30 Ml Oral.Susp) 30 ml PO DAILY PRN PRN Reason: Constipation Melatonin (Melatonin 3 Mg Tablet) 6 mg PO BEDTIME PRN PRN Reason: Insomnia Last Admin: 12/10/24 20:54 Dose: 6 mg Documented By: TASHI Methylprednisolone Sodium Succinate (Methylprednisolone Sod Succ 40 Mg Vial) 40 mg IVPUSH DAILY [facility] Last Admin: 12/11/24 09:29 Dose: 40 mg Documented By: ELOISE Pt Own (Hyoscyamine Sulfate 0.125 Mg Tablet) 0.25 mg PO Q6H PRN PRN Reason: Abdominal Discomfort Last Admin: 12/11/24 09:32 Dose: 0.25 mg Documented By: ELOISE Omeprazole (Omeprazole 20 Mg Capsule.Dr) 20 mg PO DAILY@629 [facility] Last Admin: 12/11/24 05:17 Dose: 20 mg Documented By: LOUIE Ondansetron HCl (Ondansetron Hcl 4 Mg/2 Ml Vial) 4 mg IVPUSH Q8H PRN PRN Reason: Nausea and Vomiting Oxcarbazepine (Oxcarbazepine 300 Mg Tablet) 300 mg PO TID@0500,1200,1999 [facility] Last Admin: 12/11/24 11:53 Dose: Not Given Documented By: ELOISE Non-Admin Reason: Patient Refused Oxycodone HCl (Oxycodone Hcl Immed Release 5 Mg Tablet) 5 mg PO BID PRN PRN Reason: Severe Pain (Scale Score 7-10) Last Admin: 12/11/24 11:51 Dose: 5 mg Documented By: ELOISE Polyethylene Glycol (Polyethylene Glycol 3350 17 Gm Powd.Pack) 17 gm PO DAILY PRN PRN Reason: Constipation Prazosin HCl (Prazosin Hcl 1 Mg Capsule) 2 mg PO DAILY@1999 [facility]; Protocol Last Admin: 12/10/24 21:05 Dose: 2 mg Documented By: TASHI Roflumilast (Roflumilast 500 Mcg Tablet) 500 mcg PO DAILY [facility] Last Admin: 12/11/24 09:31 Dose: 500 mcg Documented By: ELOISE Senna (Sennosides 8.6 Mg Tablet) 17.2 mg PO BEDTIME [facility] Last Admin: 12/10/24 20:59 Dose: 17.2 mg Documented By: TASHI Sodium Chloride (0.9 % Sodium Chloride Flush 3 Ml Syringe) 3 ml IVFLUSH QSHIFT [facility] Last Admin: 12/11/24 09:57 Dose: 3 ml Documented By: ELOISE Valsartan (Valsartan 40 Mg Tablet) 40 mg PO DAILY [facility]; Protocol Last Admin: 12/11/24 09:30 Dose: 40 mg Documented By: ELOISE Verapamil HCl (Verapamil Hcl 120 Mg Tablet) 120 mg PO BID@0500,2000 [facility]; Protocol Last Admin: 12/11/24 05:19 Dose: 120 mg Documented By: LOUIE Thompson 12/08/24 05:25 12/08/24 05:25 Assessment and Plan (1) COPD exacerbation: Status: Acute (2) Hypotension: Status: Acute Plan 59-year-old female with past medical history COPD/emphysema on home O2 1-3 L, tobacco dependence, hypertension, hyperlipidemia, nephrolithiasis, CVA, obesity , moderate aortic stenosis with small pericardial effusion noted from echo 12/01/2024, trigeminal neuralgia, occipital neuralgia, chronic pain syndrome, JUANITO but does not tolerate CPAP, depression/ anxiety, urinary incontinence is being admitted for COPD exacerbation. Acute on ch hypoxic respiratory failure in setting of copd excerebation vbg seems fine ,cxr negative flu/rsv/covid test negative plan: patient started on nebs,steriods ,taper oxygen,incentive spirometry,chest physiotherapy to her baseline if possible pulm eval Moderate aortic stenosis/ mild pericardial effusion This was found via echo last admission 12/01 - 12/05 EF greater than 70%, abnormal diastolic function but no wall abnormalities,No diffuse ST changes on EKG did not do well diuretics prescribed by her PCP and became severely hypotensive requiring ICU admission 12/01/2024 Patient received IV fluids in the ED BNP 16,Troponins 23.9-29.2,No diffuse ST changes on EKG telemtry seems fine plan: d/w cardiology Dr Bhatti : hypotension episode-reolved with hydration/holding bp meds) likely related to bp meds and dec po intake. no orthostasis.now asymptomatic possible blood pressure flactautions sec to diuretics ,bp meds valsartan adjusted . JUANITO:Pt will not be able to tolerate CPAP CO2 monitoring HLD-continue Statin, LFTs stable Hyperglycemia: due to steriod use A1c5.5 Trigeminal and occipital neuralgia conintue on gabapentin, oxcarbazepine, baclofen and duloxetine. Generalised weak,pt rec : rehab also added ot eval DVT prophylaxis: Lovenox PPI prophylaxis: Omeprazole Ongoing need:copd excerebation -needs nebs /steriods ,taper oxygen , patient repirtory status not optimal yet,rehab placement. Quality Stroke Does the patient have a stroke diagnosis?: No Reason for No Anti-thrombotic by Day Two: N/A - Med Ordered VTE Prior VTE?: No VTE Risk Level:: Medical - moderate - high VTE Device Contraindication: N/A - Device Ordered VTE Drug Contraindication: N/A - Med Ordered
--- NOTE | 2024-12-11 15:12 | P.CONPL_ITS ---
History of Present Illness History of Present Illness Consult date: 12/11/24 Chief complaint: dyspnea Narrative: This is an inpatient pulmonary consultation. Patient is a 59-year-old female with past medical history COPD/emphysema on home O2 1-3 L, tobacco dependence, hypertension, hyperlipidemia, nephrolithiasis, CVA, obesity , moderate aortic stenosis with small pericardial effusion noted from echo 12/01/2024, trigeminal neuralgia, occipital neuralgia, chronic pain syndrome, JUANITO but does not tolerate CPAP, depression/ anxiety, urinary incontinence was brought in by ambulance to the emergency department with complaints of shortness of breath persisting over 24 hours. Chest x-ray negative for any acute findings. Patient reported chest pressure and nausea which are currently resolved. Patient did receive antiemetics x1 with good effect. She seems to be concerned about her blood pressure. She recently took a high dose of lasix. Having a hard time tolerating her CPAP due to her trigeminal neuralgia which is likely affecting her cardiac status and her bloodpressure. We will have her trial lidoderm patches and cream to see if she can tolerate the therapy. Also She did have a CT chest personally reviewed by me, very limited due to motion. She is due for her IVIG, but will have to postpone until she has completed her hospital and likely rehab sray. Review of Systems 2 Review of Systems: Constitutional : No Weight loss, No Fever, No Chills, No Night Sweats, No Fatigue, No Malaise ENT/Mouth : No Hearing loss, No Ear Pain, No Nasal Congestion, No Sinus Pain, No Hoarseness, No sore throat, No Rhinorrhea, No Swallowing Difficulty Eyes: No Eye Pain, No Swelling, No Redness, No Foreign Body, No Discharge, No Vision Changes Cardiovascular : No chest pain, no orthopnea no edema Respiratory : Patient complaining of cough, shortness of breath, mild wheezing Gastrointestinal : No Nausea, No Vomiting, No Diarrhea, No Constipation, No abdominal Pain, No Hematochezia, No Melena Genitourinary : no irregular bleeding, No Dysuria, No Urinary Frequency, No Hematuria, No Urinary Incontinence, No Urgency, No Flank Pain, No Urinary Flow Changes, No Hesitancy Musculoskeletal : No joint pain, No Myalgias, No Joint Swelling Skin : No Skin Lesions, No rash Neuro : No Weakness, No Numbness, No Paresthesias, No Loss of Consciousness, No Dizziness, No Headache Psych : No Anxiety/Panic, No Depression, No SI/HI/AH/VH, No Social Issues, Heme/Lymph: No Bruising, No Bleeding,No Lymphadenopathy Endocrine : No Polyuria, No Polydipsia, No Temperature Intolerance [facility] Past Medical History Medical History Panic disorder Hypertension Chronic hypercapnic respiratory failure Aortic stenosis Obesity (BMI 30-39.9) Asthma Acute exacerbation of chronic obstructive pulmonary disease Chronic lung disease Hypogammaglobulinemia Smoker JUANITO (obstructive sleep apnea) Allergies Elevated troponin COPD (chronic obstructive pulmonary disease) Trigeminal neuralgia Pulmonary nodules Mixed hyperlipidemia Peripheral neuropathy Tobacco use disorder Mood disorder Surgical History Surgical History History of esophagogastroduodenoscopy (EGD) History of colonoscopy History of lumbar discectomy History of tubal ligation History of excision of mass History of shoulder surgery Social History Social History Household Members: Spouse Housing: Condominium Do you presently have visiting nurse or other home services: Yes ([facility] Alcohol intake: never Comment: pt. refusing high fall risk band. Patient Tobacco Use Status: Former Tobacco user Tobacco use type: Cigarette Cigarette Packs Per Day: 4 Cigarettes Per Day: 80.0 Years Smoked: 40 e-Cigarette/Vaping Use: Currently Using Second Hand Smoke Exposure: No Substance Use Type: Marijuana Advance Directives Date on File: 03/09/23 service: No Travel History Ebola Risk: Travel/Contact With Anyone From Affected Area/s: No Has Patient Experienced Ebola Symptoms: No Meds Allergies Allergy/AdvReac Type Severity Reaction Status Date / Time Iodinated Contrast Media (IV Allergy Intermediate HIVES Verified 12/07/24 21:06 CONTRAST) latex (LATEX) Allergy Unknown RASH Verified 12/07/24 21:06 adhesive tape Allergy Rash Verified 12/07/24 21:06 morphine (MORPHINE) AdvReac Unknown VOMITING Verified 12/07/24 21:06 Active Medications: Current Medications Acetaminophen (Acetaminophen 325 Mg Tablet) 650 mg PO Q6H PRN PRN Reason: Pain, Mild 1-3,fever,headache Acetaminophen/Butalbital/Caffeine (Butalb/Acetamin/Caff 50/325/40 Tablet) 1 tab PO DAILY MRX1 PRN PRN Reason: Migraine Headache Albuterol Sulfate (Albuterol Sulfate 90 Mcg 8 Gm Inhaler) 2 puff INHALE Q4H PRN PRN Reason: Shortness Of Breath Or Wheezing Last Admin: 12/11/24 09:31 Dose: 2 puff Albuterol/Ipratropium (Albuterol/Iprat 2.5/0.5mg 3 Ml Ampul.Neb) 3 ml INHALE Q4H PRN PRN Reason: Shortness of Breath/Wheezing Last Admin: 12/10/24 19:37 Dose: 3 ml Aripiprazole (Aripiprazole 5 Mg Tablet) 5 mg PO DAILY [facility] Last Admin: 12/11/24 09:31 Dose: 5 mg Aspirin (Aspirin Enteric Coated 81 Mg Tablet.) 81 mg PO DAILY@1999 [facility] Last Admin: 12/10/24 21:07 Dose: 81 mg Atorvastatin Calcium (Atorvastatin Calcium 80 Mg Tablet) 80 mg PO DAILY@1999 [facility] Last Admin: 12/10/24 21:02 Dose: 80 mg Baclofen (Baclofen 20 Mg Tablet) 20 mg PO TID@499, [facility] Last Admin: 12/11/24 11:51 Dose: 20 mg Benzonatate (Benzonatate 100 Mg Capsule) 100 mg PO TID PRN PRN Reason: Cough Last Admin: 12/10/24 20:54 Dose: 100 mg Budesonide (Budesonide 0.5 Mg/2 Ml Ampul.Neb) 0.5 mg INHALE RBID [facility] Last Admin: 12/11/24 08:38 Dose: 0.5 mg Calcium Carbonate (Calcium Carbonate 750 Mg Tab.Chew) 750 mg PO Q4H PRN PRN Reason: Heartburn Last Admin: 12/08/24 22:08 Dose: 750 mg Calcium Carbonate/Cholecalciferol (Calcium + Vitamin D 250 Mg Tablet) 500 mg PO DAILY@1999 [facility] Last Admin: 12/10/24 21:03 Dose: 500 mg Clotrimazole (Clotrimazole 1 % Cream 15 Gm Tube) 1 appl TOPICAL DAILY PRN PRN Reason: Fungal Infection Duloxetine HCl (Duloxetine Hcl 60 Mg Capsule.) 60 mg PO BID@ [facility] Last Admin: 12/11/24 05:19 Dose: 60 mg Enoxaparin Sodium (Enoxaparin Sodium 40 Mg/0.4 Ml Syringe) 40 mg SUBCUT Q24H [facility] Last Admin: 12/11/24 09:30 Dose: 40 mg Gabapentin (Gabapentin 400 Mg Capsule) 1,200 mg PO TID@0500,1200,2000 [facility] Last Admin: 12/11/24 11:53 Dose: 1,200 mg Guaifenesin/Dextromethorphan (Guaifenesin Dm 600/30 1 Tab Tab.Er.12h) 1 tab PO BID [facility] Last Admin: 12/11/24 09:31 Dose: 1 tab Lidocaine (Lidocaine 4 % Patch Adh..Patch) 1 patch TRANSDERMA DAILY [facility]; Protocol Lidocaine HCl (Lidocaine 4 % Cream Kit) 1 appl TOPICAL ONCE ONE; Protocol Stop: 12/11/24 21:01 Lorazepam (Lorazepam 1 Mg Tablet) 1 mg PO DAILY PRN PRN Reason: MODERATE Anxiety Last Admin: 12/10/24 05:45 Dose: 1 mg Magnesium Hydroxide (Milk Of Magnesia 30 Ml Oral.Susp) 30 ml PO DAILY PRN PRN Reason: Constipation Melatonin (Melatonin 3 Mg Tablet) 6 mg PO BEDTIME PRN PRN Reason: Insomnia Last Admin: 12/10/24 20:54 Dose: 6 mg Methylprednisolone Sodium Succinate (Methylprednisolone Sod Succ 40 Mg Vial) 40 mg IVPUSH DAILY [facility] Last Admin: 12/11/24 09:29 Dose: 40 mg Pt Own (Hyoscyamine Sulfate 0.125 Mg Tablet) 0.25 mg PO Q6H PRN PRN Reason: Abdominal Discomfort Last Admin: 12/11/24 09:32 Dose: 0.25 mg Omeprazole (Omeprazole 20 Mg Capsule.Dr) 20 mg PO DAILY@629 [facility] Last Admin: 12/11/24 05:17 Dose: 20 mg Ondansetron HCl (Ondansetron Hcl 4 Mg/2 Ml Vial) 4 mg IVPUSH Q8H PRN PRN Reason: Nausea and Vomiting Oxcarbazepine (Oxcarbazepine 300 Mg Tablet) 300 mg PO TID@0500,1200,2000 [facility] Last Admin: 12/11/24 11:53 Dose: Not Given Oxycodone HCl (Oxycodone Hcl Immed Release 5 Mg Tablet) 5 mg PO BID PRN PRN Reason: Severe Pain (Scale Score 7-10) Last Admin: 12/11/24 11:51 Dose: 5 mg Polyethylene Glycol (Polyethylene Glycol 3350 17 Gm Powd.Pack) 17 gm PO DAILY PRN PRN Reason: Constipation Prazosin HCl (Prazosin Hcl 1 Mg Capsule) 2 mg PO DAILY@1999 [facility]; Protocol Last Admin: 12/10/24 21:05 Dose: 2 mg Roflumilast (Roflumilast 500 Mcg Tablet) 500 mcg PO DAILY [facility] Last Admin: 12/11/24 09:31 Dose: 500 mcg Senna (Sennosides 8.6 Mg Tablet) 17.2 mg PO BEDTIME [facility] Last Admin: 12/10/24 20:59 Dose: 17.2 mg Sodium Chloride (0.9 % Sodium Chloride Flush 3 Ml Syringe) 3 ml IVFLUSH [facility] Last Admin: 12/11/24 09:57 Dose: 3 ml Valsartan (Valsartan 40 Mg Tablet) 40 mg PO DAILY [facility]; Protocol Last Admin: 12/11/24 09:30 Dose: 40 mg Verapamil HCl (Verapamil Hcl 120 Mg Tablet) 120 mg PO BID@ [facility]; Protocol Last Admin: 12/11/24 05:19 Dose: 120 mg Home Medications ?Medication ?Instructions ?Recorded ?Confirmed ?Last Taken ?Type atorvastatin 80 mg tablet 80 mg PO DAILY@199903/04/23 12/08/24 12/07/24 History mhzojyxqca-cijnfadieikel-sgnejdnj 1 tab PO DAILY MRX1 PRN Migraine 03/04/23 12/08/24 05/21/24 20:00 History 50 mg-325 mg-40 mg tablet Headache duloxetine 60 mg capsule,delayed 60 mg PO BID@0500,200 0 03/04/23 12/08/24 12/07/24 History release gabapentin 300 mg capsule 1,200 mg PO TID@0500,1200,20 00 03/04/23 12/08/24 12/07/24 History hyoscyamine sulfate 0.125 mg tablet 0.25 mg PO Q6H PRN Abdominal 03/04/23 12/08/24 05/21/24 20:00 History Discomfort Oxygen Home Use 04/16/23 10/29/24 10/28/24 History prazosin 2 mg capsule 2 mg PO DAILY@199904/16/23 12/08/24 12/07/24 History albuterol sulfate 90 mcg/actuation 2 puff inhalation Q 4H PRN 01/31/24 12/08/24 05/21/24 20:00 History aerosol inhaler Shortness Of Breath Or Wheez ing aspirin 81 mg tablet,delayed 81 mg PO DAILY@05/2212/08/24 12/07/24 History release calcium 600 mg (as 1 tab PO DAILY@199906/20/24 12/08/24 12/07/24 History carbonate)-vitamin D3 5 mcg (200 unit) tablet verapamil 120 mg tablet 120 mg PO BID@050,06/1412/08/24 12/07/24 History lorazepam 0.5 mg tablet 1 mg PO DAILY PRN MODERATE A nxiety 08/03/24 12/08/24 10/28/24 History baclofen 20 mg tablet 20 mg PO TID@0500,1199,199910/29/24 12/08/24 12/07/24 History ciclopirox 8 % topical solution 1 appl topical DAILY P RN Fungal 10/29/24 12/08/24 10/28/24 History Infection oxycodone 5 mg tablet 5 mg PO BID PRN Severe Pain (Scale 10/29/24 12/08/24 Unknown History Score 7-10) aripiprazole 5 mg tablet 5 mg PO DAILY 12/01/2412/0812/07/24 History oxcarbazepine 300 mg tablet 300 mg PO TID 12/01/2412/07/24 History Physical Exam 2 Vital Signs: Vital Signs: Last Vital Signs Temp 97.6 F 12/11/24 12:54 Pulse 85 12/11/24 12:54 Resp 20 12/11/24 12:54 BP 158/75 H 12/11/24 12:54 Pulse Ox 95 12/11/24 12:54 O2 Del Method Nasal Cannula 12/11/24 12:54 O2 Flow Rate 2 12/11/24 12:54 Oxygen Flow Rate 2 12/07/24 21:04 BMI result Body Mass Index 36.5 Const: Other: Appearance: Alert. Oriented X3. No acute distress. Eyes: Pupils equal, round and reactive to light. ENT: Pharynx normal. Neck: Normal inspection. Neck supple. No lymph nodes noted. No crepitus CVS: Normal heart rate and rhythm. Pulses normal. Normal S1 and S2 Respiratory: Patient is a bit tachypneic, mild bilateral wheezing, moderate air movement, no crackles or rales Abdomen: Soft and nontender. No rigidity. No distention. Skin: Skin warm and dry. Normal skin color. Normal skin turgor. Extremities: No lower extremity edema Neuro: Oriented X 3. No motor deficit. No sensory deficit. Moving all extremities. No slurred speech. CN 2 through 12 grossly intact Psych: calm, cooperative, normal affect Results Laboratory Findings 12/08/24 05:25 12/08/24 05:25 Abnormal lab findings: Abnormal Labs 12/07/24 12/07/24 12/07/24 21:11 21:17 21:57 RBC 3.70 L Hgb 11.9 L Hct 35.9 L MCV MPV 9.1 L Immature Gran % (Auto) 0.6 H Neut % (Auto) Lymph % (Auto) [place] % (Auto) Eos % (Auto) 4.9 H Lymph # (Auto) Abs Immat Gran (auto) 0.05 H Absolute Neuts (auto) VBG pH 7.47 H VBG HCO3 38 H Anion Gap 11 L BUN 18 H Random Glucose 227 H Troponin I High Sens 29.2 H Total Protein 6.0 L 12/08/24 05:25 RBC 3.64 L Hgb 11.6 L Hct 36.0 L MCV 98.9 H MPV 9.3 L Immature Gran % (Auto) 0.6 H Neut % (Auto) 95.3 H Lymph % (Auto) 3.0 L [place] % (Auto) 0.9 L Eos % (Auto) Lymph # (Auto) 0.3 L Abs Immat Gran (auto) 0.05 H Absolute Neuts (auto) 8.6 H VBG pH VBG HCO3 Anion Gap BUN Random Glucose 140 H Troponin I High Sens Total Protein Assessment and Plan (1) Hypotension: Qualifiers: Hypotension type: unspecified hypotension type Qualified Code(s): I95.9 - Hypotension, unspecified Status: Acute (2) Chronic lung disease: Status: Acute (3) COPD exacerbation: Status: Acute (4) Aortic stenosis: Qualifiers: Cardiac valve disease etiology: etiology unspecified Qualified Code(s): I35.0 - Nonrheumatic aortic (valve) stenosis Status: Acute Plan Needs to use her PAP therapy, will trial lidoderm patches to affected area Monitor fluid status, likely will need a maintenance dose of lasix respiratory therapy Oxygen to keep pox>90% Will check IgG levels, but ok ok postpone her IvIg until she is discharge from rehab Procedures Date of Service Date of Service: 12/11/24
--- NOTE | 2024-12-11 15:33 | MHC.CM.PN ---
EMR REVIEWED AND PER MD ROUNDS, PT IS ABLE TO GO TO [facility] PENDING BED OFFER/INSURANCE AUTH. AWAITING [facility] TO RESPOND (AWAITING OT TO SEE PT) AND CARE [facility] REVIEWING. CM WILL AWAIT BED OFFER.
[2024-12-11] MEDS: Calcium + Vitamin D 250 MG TABLET 500 MG PO (20:25)
[2024-12-11] MEDS: Aspirin Enteric Coated 81 MG TABLET.DR PO (20:27)
[2024-12-11] MEDS: Lidocaine 4 % Cream KIT 1 APPL TOPICAL (21:44)
[2024-12-12] VITALS (11 sets, daily range): BP systolic 141–159; BP diastolic 65–77; PULSE 73–93; RESP 16–20; TEMP 36.2–36.4; O2SAT 92–97; BMI 35.7
[2024-12-12 04:58] LABS: Immunoglobulin G 787 mg/dL (600-1540)
[2024-12-12] MEDS: oxyCODONE HCl Immed Release 5 MG TABLET PO ×3 (10:25→21:07)
[2024-12-12] MEDS: Lidocaine 4 % Patch ADH..PATCH 1 PATCH TRANSDERMA ×2 (10:28→16:21)
[2024-12-12] MEDS: 0.9 % Sodium Chloride Flush 3 ML SYRINGE IVFLUSH ×2 (10:29→12:30)
--- NOTE | 2024-12-12 13:03 | MHC.CM.PN ---
[facility] HAS OFFERED A BED PENDING INSURANCE AUTH. PT ACCEPTS BED OFFER/AGREEABLE TO PLAN. CENTER WILL ORDER CPAP MACHINE FOR PT.. CM AWAITS AUTH.
--- NOTE | 2024-12-12 13:05 | HO.PM.IMPN ---
Subjective Subjective Date of Service: 12/12/24 Interval History: feeling better, tolerating ambulation with walker Physical Exam Vital Signs: Vital Signs: Last Vital Signs Temp 97.6 F 12/12/24 06:55 Pulse 73 12/12/24 07:32 Resp 16 12/12/24 07:32 BP 154/70 H 12/12/24 06:55 Pulse Ox 97 12/12/24 06:55 O2 Del Method Nasal Cannula 12/12/24 06:55 O2 Flow Rate 2 12/12/24 06:55 Oxygen Flow Rate 2 12/07/24 21:04 BMI result Body Mass Index 35.7 General: AO X 3, no acute distress Resp: CTA bilateral, no accessory muscles used CVS: S1,S2,RRR GI: soft, non tender, non distended Neuro: motor grossly intact, alert Psych: appropriate affect, appropriate insight Objective Data Active Medications Acetaminophen (Acetaminophen 325 Mg Tablet) 650 mg PO Q6H PRN PRN Reason: Pain, Mild 1-3,fever,headache Acetaminophen/Butalbital/Caffeine (Butalb/Acetamin/Caff 50/325/40 Tablet) 1 tab PO DAILY MRX1 PRN PRN Reason: Migraine Headache Albuterol Sulfate (Albuterol Sulfate 90 Mcg 8 Gm Inhaler) 2 puff INHALE Q4H PRN PRN Reason: Shortness Of Breath Or Wheezing Last Admin: 12/11/24 09:31 Dose: 2 puff Documented By: ELOISE Albuterol/Ipratropium (Albuterol/Iprat 2.5/0.5mg 3 Ml Ampul.Neb) 3 ml INHALE Q4H PRN PRN Reason: Shortness of Breath/Wheezing Last Admin: 12/10/24 19:37 Dose: 3 ml Documented By: JOHN Aripiprazole (Aripiprazole 5 Mg Tablet) 5 mg PO DAILY COUNTS INCLUDE 234 BEDS AT THE [facility] Last Admin: 12/12/24 10:25 Dose: 5 mg Documented By: ZENAIDA Aspirin (Aspirin Enteric Coated 81 Mg Tablet.) 81 mg PO DAILY@1999 COUNTS INCLUDE 234 BEDS AT THE [facility] Last Admin: 12/11/24 20:27 Dose: 81 mg Documented By: FRAN Atorvastatin Calcium (Atorvastatin Calcium 80 Mg Tablet) 80 mg PO DAILY@1999 COUNTS INCLUDE 234 BEDS AT THE [facility] Last Admin: 12/11/24 20:26 Dose: 80 mg Documented By: FRAN Baclofen (Baclofen 20 Mg Tablet) 20 mg PO TID@499, COUNTS INCLUDE 234 BEDS AT THE [facility] Last Admin: 12/12/24 12:29 Dose: 20 mg Documented By: ELOISE Benzonatate (Benzonatate 100 Mg Capsule) 100 mg PO TID PRN PRN Reason: Cough Last Admin: 12/10/24 20:54 Dose: 100 mg Documented By: TASHI Budesonide (Budesonide 0.5 Mg/2 Ml Ampul.Neb) 0.5 mg INHALE RBID COUNTS INCLUDE 234 BEDS AT THE [facility] Last Admin: 12/12/24 07:28 Dose: 0.5 mg Documented By: COSME Calcium Carbonate (Calcium Carbonate 750 Mg Tab.Chew) 750 mg PO Q4H PRN PRN Reason: Heartburn Last Admin: 12/08/24 22:08 Dose: 750 mg Documented By: LOUIE Calcium Carbonate/Cholecalciferol (Calcium + Vitamin D 250 Mg Tablet) 500 mg PO DAILY@1999 COUNTS INCLUDE 234 BEDS AT [facility] Last Admin: 12/11/24 20:25 Dose: 500 mg Documented By: FRAN Clotrimazole (Clotrimazole 1 % Cream 15 Gm Tube) 1 appl TOPICAL DAILY PRN PRN Reason: Fungal Infection Duloxetine HCl (Duloxetine Hcl 60 Mg Capsule.) 60 mg PO BID@ COUNTS INCLUDE 234 BEDS AT THE [facility] Last Admin: 12/12/24 06:01 Dose: 60 mg Documented By: FRAN Enoxaparin Sodium (Enoxaparin Sodium 40 Mg/0.4 Ml Syringe) 40 mg SUBCUT Q24H COUNTS INCLUDE 234 BEDS AT THE [facility] Last Admin: 12/12/24 10:24 Dose: 40 mg Documented By: ZENAIDA Gabapentin (Gabapentin 400 Mg Capsule) 1,200 mg PO TID@499, COUNTS INCLUDE 234 BEDS AT THE [facility] Last Admin: 12/12/24 12:28 Dose: 1,200 mg Documented By: ELOISE Guaifenesin/Dextromethorphan (Guaifenesin Dm 600/30 1 Tab Tab.Er.12h) 1 tab PO BID COUNTS INCLUDE 234 BEDS AT THE [facility] Last Admin: 12/12/24 10:26 Dose: Not Given Documented By: ZENAIDA Non-Admin Reason: Patient Refused Lidocaine (Lidocaine 4 % Patch Adh..Patch) 1 patch TRANSDERMA DAILY COUNTS INCLUDE 234 BEDS AT THE [facility]; Protocol Last Admin: 12/12/24 10:28 Dose: 1 patch Documented By: ZENAIDA Lorazepam (Lorazepam 1 Mg Tablet) 1 mg PO DAILY PRN PRN Reason: MODERATE Anxiety Last Admin: 12/11/24 20:33 Dose: 1 mg Documented By: FRAN Magnesium Hydroxide (Milk Of Magnesia 30 Ml Oral.Susp) 30 ml PO DAILY PRN PRN Reason: Constipation Melatonin (Melatonin 3 Mg Tablet) 6 mg PO BEDTIME PRN PRN Reason: Insomnia Last Admin: 12/10/24 20:54 Dose: 6 mg Documented By: TASHI Methylprednisolone Sodium Succinate (Methylprednisolone Sod Succ 40 Mg Vial) 40 mg IVPUSH DAILY COUNTS INCLUDE 234 BEDS AT THE [facility] Last Admin: 12/12/24 10:36 Dose: 40 mg Documented By: ZENAIDA Pt Own (Hyoscyamine Sulfate 0.125 Mg Tablet) 0.25 mg PO Q6H PRN PRN Reason: Abdominal Discomfort Last Admin: 12/11/24 09:32 Dose: 0.25 mg Documented By: ELOISE Omeprazole (Omeprazole 20 Mg Capsule.Dr) 20 mg PO DAILY@629 COUNTS INCLUDE 234 BEDS AT THE [facility] Last Admin: 12/12/24 06:01 Dose: 20 mg Documented By: FRAN Ondansetron HCl (Ondansetron Hcl 4 Mg/2 Ml Vial) 4 mg IVPUSH Q8H PRN PRN Reason: Nausea and Vomiting Oxcarbazepine (Oxcarbazepine 300 Mg Tablet) 300 mg PO TID@0500,1200,2000 COUNTS INCLUDE 234 BEDS AT THE [facility] Last Admin: 12/12/24 12:55 Dose: Not Given Documented By: ELOISE Non-Admin Reason: Patient Refused Oxycodone HCl (Oxycodone Hcl Immed Release 5 Mg Tablet) 5 mg PO BID PRN PRN Reason: Severe Pain (Scale Score 7-10) Last Admin: 12/12/24 10:25 Dose: 5 mg Documented By: ZENAIDA Polyethylene Glycol (Polyethylene Glycol 3350 17 Gm Powd.Pack) 17 gm PO DAILY PRN PRN Reason: Constipation Prazosin HCl (Prazosin Hcl 1 Mg Capsule) 2 mg PO DAILY@1999 COUNTS INCLUDE 234 BEDS AT [facility]; Protocol Last Admin: 12/11/24 20:27 Dose: 2 mg Documented By: FRAN Roflumilast (Roflumilast 500 Mcg Tablet) 500 mcg PO DAILY COUNTS INCLUDE 234 BEDS AT THE [facility] Last Admin: 12/12/24 10:25 Dose: 500 mcg Documented By: ZENAIDA Senna (Sennosides 8.6 Mg Tablet) 17.2 mg PO BEDTIME COUNTS INCLUDE 234 BEDS AT THE [facility] Last Admin: 12/11/24 20:26 Dose: 17.2 mg Documented By: FRAN Sodium Chloride (0.9 % Sodium Chloride Flush 3 Ml Syringe) 3 ml IVFLUSH QSHIFT COUNTS INCLUDE 234 BEDS AT THE [facility] Last Admin: 12/12/24 12:30 Dose: 3 ml Documented By: ELOISE Valsartan (Valsartan 40 Mg Tablet) 40 mg PO DAILY COUNTS INCLUDE 234 BEDS AT THE [facility]; Protocol Last Admin: 12/12/24 10:26 Dose: 40 mg Documented By: ZENAIDA Verapamil HCl (Verapamil Hcl 120 Mg Tablet) 120 mg PO BID@0500,2000 COUNTS INCLUDE 234 BEDS AT THE [facility]; Protocol Last Admin: 12/12/24 06:00 Dose: 120 mg Documented By: FRAN Labs 12/08/24 05:25 12/08/24 05:25 Labs: Laboratory Results - last 24 hr 12/11/24 15:33 IgG [id number] Assessment and Plan (1) Panic disorder: Status: Acute Plan 59F PMH chronic hypoxic respiratory failure due to COPD on 1-3 L home O2, hypertension, hyperlipidemia, CVA, mood disorder, moderate aortic stenosis, trigeminal neuralgia, JUANITO presented with shortness of breaths Chronic hypoxic respiratory failure due to COPD with acute decompensation Continue steroids, can change to prednisone Continue nebs JUANITO Trying topical lidocaine for tolerance Moderate Outpatient cardiology follow up Trigeminal neuralgia Trileptal Mood disorder Cymbalta Abicarmencita Hypertension Diovan, verapamil DVT prophylaxis with Lovenox Full Code reason for continued hospitalization:dispo planning Quality Stroke Does the patient have a stroke diagnosis?: No Reason for No Anti-thrombotic by Day Two: N/A - Med Ordered VTE Prior VTE?: No VTE Risk Level:: Medical - moderate - high VTE Device Contraindication: N/A - Device Ordered VTE Drug Contraindication: N/A - Med Ordered
[2024-12-12] MEDS: Albuterol Sulfate 90 MCG 8 GM INHALER 2 PUFF INHALE (13:41)
[2024-12-12] MEDS: Calcium + Vitamin D 250 MG TABLET 500 MG PO (20:54)
[2024-12-12] MEDS: Aspirin Enteric Coated 81 MG TABLET.DR PO (20:56)
[2024-12-12] MEDS: guaiFENesin DM 600/30 1 TAB TAB.ER.12H PO (21:01)
[2024-12-13] MEDS: oxyCODONE HCl Immed Release 5 MG TABLET PO ×2 (05:23→09:33)
[2024-12-13 06:00] VITALS: BMI 36.4
[2024-12-13 08:00] VITALS: BP 143/63; PULSE 85; RESP 18; TEMP 36; O2SAT 96
[2024-12-13] MEDS: Albuterol/Iprat 2.5/0.5MG 3 ML AMPUL.NEB INHALE (08:01)
[2024-12-13 08:02] VITALS: PULSE 85; RESP 16; O2SAT 97
[2024-12-13] MEDS: 0.9 % Sodium Chloride Flush 3 ML SYRINGE IVFLUSH ×2 (09:19)
[2024-12-13] MEDS: guaiFENesin DM 600/30 1 TAB TAB.ER.12H PO (09:22)
--- NOTE | 2024-12-13 09:47 | P.PNIM_ITS ---
Subjective Subjective Date of Service: 12/13/24 Interval History: feeling better, tolerating ambulation with walker Physical Exam 2 Vital Signs: Vital Signs: Last Vital Signs Temp 96.8 F 12/13/24 08:00 Pulse 85 12/13/24 08:02 Resp 16 12/13/24 08:02 BP 143/63 H 12/13/24 08:00 Pulse Ox 96 12/13/24 08:00 O2 Del Method Nasal Cannula 12/13/24 08:00 O2 Flow Rate 2 12/13/24 08:00 Oxygen Flow Rate 2 12/07/24 21:04 BMI result Body Mass Index 36.4 General: AO X 3, no acute distress Resp: CTA bilateral, no accessory muscles used CVS: S1,S2,RRR GI: soft, non tender, non distended Neuro: motor grossly intact, alert Psych: appropriate affect, appropriate insight Objective Data Active Medications Acetaminophen (Acetaminophen 325 Mg Tablet) 650 mg PO Q6H PRN PRN Reason: Pain, Mild 1-3,fever,headache Acetaminophen/Butalbital/Caffeine (Butalb/Acetamin/Caff 50/325/40 Tablet) 1 tab PO DAILY MRX1 PRN PRN Reason: Migraine Headache Albuterol Sulfate (Albuterol Sulfate 90 Mcg 8 Gm Inhaler) 2 puff INHALE Q4H PRN PRN Reason: Shortness Of Breath Or Wheezing Last Admin: 12/12/24 13:41 Dose: 2 puff Documented By: ELOISE Albuterol/Ipratropium (Albuterol/Iprat 2.5/0.5mg 3 Ml Ampul.Neb) 3 ml INHALE Q4H PRN PRN Reason: Shortness of Breath/Wheezing Last Admin: 12/13/24 08:01 Dose: 3 ml Documented By: JUAN C Aripiprazole (Aripiprazole 5 Mg Tablet) 5 mg PO DAILY [facility] Last Admin: 12/13/24 09:21 Dose: 5 mg Documented By: NEAL Aspirin (Aspirin Enteric Coated 81 Mg Tablet.) 81 mg PO DAILY@1999 [facility] Last Admin: 12/12/24 20:56 Dose: 81 mg Documented By: FRAN Atorvastatin Calcium (Atorvastatin Calcium 80 Mg Tablet) 80 mg PO DAILY@1999 [facility] Last Admin: 12/12/24 20:57 Dose: 80 mg Documented By: FRAN Baclofen (Baclofen 20 Mg Tablet) 20 mg PO TID@0500, [facility] Last Admin: 12/13/24 05:24 Dose: 20 mg Documented By: OCHOA Benzonatate (Benzonatate 100 Mg Capsule) 100 mg PO TID PRN PRN Reason: Cough Last Admin: 12/10/24 20:54 Dose: 100 mg Documented By: TASHI Budesonide (Budesonide 0.5 Mg/2 Ml Ampul.Neb) 0.5 mg INHALE RBID [facility] Last Admin: 12/13/24 08:02 Dose: 0.5 mg Documented By: JUAN C Calcium Carbonate (Calcium Carbonate 750 Mg Tab.Chew) 750 mg PO Q4H PRN PRN Reason: Heartburn Last Admin: 12/08/24 22:08 Dose: 750 mg Documented By: LOUIE Calcium Carbonate/Cholecalciferol (Calcium + Vitamin D 250 Mg Tablet) 500 mg PO DAILY@1999 [facility] Last Admin: 12/12/24 20:54 Dose: 500 mg Documented By: FRAN Clotrimazole (Clotrimazole 1 % Cream 15 Gm Tube) 1 appl TOPICAL DAILY PRN PRN Reason: Fungal Infection Duloxetine HCl (Duloxetine Hcl 60 Mg Capsule.) 60 mg PO BID@ [facility] Last Admin: 12/13/24 05:26 Dose: 60 mg Documented By: OCHOA Enoxaparin Sodium (Enoxaparin Sodium 40 Mg/0.4 Ml Syringe) 40 mg SUBCUT Q24H [facility] Last Admin: 12/13/24 09:20 Dose: 40 mg Documented By: NEAL Gabapentin (Gabapentin 400 Mg Capsule) 1,200 mg PO TID@499, [facility] Last Admin: 12/13/24 05:24 Dose: 1,200 mg Documented By: OCHOA Guaifenesin/Dextromethorphan (Guaifenesin Dm 600/30 1 Tab Tab.Er.12h) 1 tab PO BID [facility] Last Admin: 12/13/24 09:22 Dose: 1 tab Documented By: NEAL Lidocaine (Lidocaine 4 % Patch Adh..Patch) 1 patch TRANSDERMA DAILY [facility]; Protocol Last Admin: 12/12/24 10:28 Dose: 1 patch Documented By: ZENAIDA Lidocaine HCl (Lidocaine 4 % Cream Kit) 1 appl TOPICAL ONCE PRN; Protocol PRN Reason: facial pain Lorazepam (Lorazepam 1 Mg Tablet) 1 mg PO DAILY PRN PRN Reason: MODERATE Anxiety Last Admin: 12/13/24 05:23 Dose: 1 mg Documented By: OCHOA Magnesium Hydroxide (Milk Of Magnesia 30 Ml Oral.Susp) 30 ml PO DAILY PRN PRN Reason: Constipation Melatonin (Melatonin 3 Mg Tablet) 6 mg PO BEDTIME PRN PRN Reason: Insomnia Last Admin: 12/10/24 20:54 Dose: 6 mg Documented By: TASHI Pt Own (Hyoscyamine Sulfate 0.125 Mg Tablet) 0.25 mg PO Q6H PRN PRN Reason: Abdominal Discomfort Last Admin: 12/11/24 09:32 Dose: 0.25 mg Documented By: ELOISE Omeprazole (Omeprazole 20 Mg Capsule.Dr) 20 mg PO DAILY@629 [facility] Last Admin: 12/13/24 05:24 Dose: 20 mg Documented By: OCHOA Ondansetron HCl (Ondansetron Hcl 4 Mg/2 Ml Vial) 4 mg IVPUSH Q8H PRN PRN Reason: Nausea and Vomiting Oxcarbazepine (Oxcarbazepine 300 Mg Tablet) 300 mg PO TID@0500,1200,1999 [facility] Last Admin: 12/13/24 05:24 Dose: 300 mg Documented By: OCHOA Oxycodone HCl (Oxycodone Hcl Immed Release 5 Mg Tablet) 5 mg PO BID PRN PRN Reason: Severe Pain (Scale Score 7-10) Last Admin: 12/13/24 05:23 Dose: 5 mg Documented By: OCHOA Polyethylene Glycol (Polyethylene Glycol 3350 17 Gm Powd.Pack) 17 gm PO DAILY PRN PRN Reason: Constipation Prazosin HCl (Prazosin Hcl 1 Mg Capsule) 2 mg PO DAILY@1999 [facility]; Protocol Last Admin: 12/12/24 20:53 Dose: 2 mg Documented By: FRAN Prednisone (Prednisone 20 Mg Tablet) 40 mg PO DAILY [facility] Last Admin: 12/13/24 09:22 Dose: 40 mg Documented By: NEAL Roflumilast (Roflumilast 500 Mcg Tablet) 500 mcg PO DAILY [facility] Last Admin: 12/13/24 09:21 Dose: 500 mcg Documented By: NEAL Senna (Sennosides 8.6 Mg Tablet) 17.2 mg PO BEDTIME [facility] Last Admin: 12/12/24 20:54 Dose: 17.2 mg Documented By: FRAN Sodium Chloride (0.9 % Sodium Chloride Flush 3 Ml Syringe) 3 ml IVFLUSH QSHIFT [facility] Last Admin: 12/13/24 09:19 Dose: 3 ml Documented By: NEAL Valsartan (Valsartan 40 Mg Tablet) 40 mg PO DAILY [facility]; Protocol Last Admin: 12/13/24 09:22 Dose: 40 mg Documented By: NEAL Verapamil HCl (Verapamil Hcl 120 Mg Tablet) 120 mg PO BID@0500,2000 [facility]; Protocol Last Admin: 12/13/24 05:24 Dose: 120 mg Documented By: OCHOA Labs 12/08/24 05:25 12/08/24 05:25 Assessment and Plan (1) Panic disorder: Status: Acute Plan 59F PMH chronic hypoxic respiratory failure due to COPD on 1-3 L home O2, hypertension, hyperlipidemia, CVA, mood disorder, moderate aortic stenosis, trigeminal neuralgia, JUANITO presented with shortness of breaths Chronic hypoxic respiratory failure due to COPD with acute decompensation Continue prednisone Continue nebs JUANITO some success with topical lidocaine for tolerance Moderate Outpatient cardiology follow up Trigeminal neuralgia Trileptal Mood disorder Cymbalta, Abilify Hypertension Diovan, verapamil DVT prophylaxis with Lovenox Full Code reason for continued hospitalization:dispo planning Quality Stroke Does the patient have a stroke diagnosis?: No Reason for No Anti-thrombotic by Day Two: N/A - Med Ordered VTE Prior VTE?: No VTE Risk Level:: Medical - moderate - high VTE Device Contraindication: N/A - Device Ordered VTE Drug Contraindication: N/A - Med Ordered
--- NOTE | 2024-12-13 10:51 | MHC.CM.PN ---
Insurance auth received for pt to go to STR at [facility] today, she will transport there via [facility].
--- NOTE | 2024-12-13 11:15 | PC.NURSE ---
Pt no longer on campus monitor. Order discontinued by Dr. Lee.
[2024-12-13] MEDS: Lidocaine 4 % Cream KIT 1 APPL TOPICAL (12:12)
--- NOTE | 2024-12-13 12:16 | PM.DS ---
DS: Providers Provider Date of Service: 12/13/24 Date of admission: 12/08/24 00:57 Date of discharge: 12/13/24 Primary care physician: Antione Segura PA-C Consults: 12/11/24 11:18 Consult to Pulmonology Routine Consulting Provider: [facility] [place] Reason for consultation: copd excerebation,reuesting for ivig Has provider been notified: No DS: Diagnosis Discharge Diagnosis (1) Panic disorder: Status: Acute DS: Summary Hospital Course Hospital Course: from initial hpi: 59-year-old female with past medical history COPD/emphysema on home O2 1-3 L, tobacco dependence, hypertension, hyperlipidemia, nephrolithiasis, CVA, obesity , moderate aortic stenosis with small pericardial effusion noted from echo 12/01/2024, trigeminal neuralgia, occipital neuralgia, chronic pain syndrome, JUANITO but does not tolerate CPAP, depression/ anxiety, urinary incontinence was brought in by ambulance to the emergency department with complaints of shortness of breath persisting over 24 hours. Chest x-ray negative for any acute findings. Patient reported chest pressure and nausea which are currently resolved. Patient did receive antiemetics x1 with good effect. Patient had just been discharged from the hospital 12/05/2024 status post admission 12/01/2024 for significant hypotension status post starting Lasix where she was told she recently was diagnosed with CHF. Patient required critical care admission to the ICU for this previous admission. Patient was very acidotic with an elevated lactic acid. Patient was also very somnolent at that time. Echo revealed a hyperdynamic EF of 70% and moderate aortic stenosis with a small pericardial effusion. Patient had some abnormal diastolic dysfunction but no other wall abnormalities noted. During patient's time in the ICU she required Levophed, hydration, and symptoms did start to improve. Patient was then transferred to the floor and discharged home on 12/05/2024. Patient states she did not attend rehab as she is not a candidate for PT or OT. Patient was not consulted Cardiology this past admission. We will place consultation with Cardiology at this time patient's current presentation noting recent echo with moderate aortic stenosis and small pericardial effusion. There is no currently any right heart strain on EKG. Patient is satting 92% on 3 L nasal cannula. Troponin 29.2, BNP 16. VBG 7.47, 51, 102 and 38. Patient did receive methylprednisolone in the ED and blood sugars are currently elevated at 227. hospital course: Patient was admitted for chronic hypoxic respiratory failure due to COPD with acute decompensation. Was treated with steroids and transitioned to prednisone. Was continued on nebulizers and symptoms improved. Patient is ambulating with walker with minimal shortness breath. [facility] and 5 more days of prednisone she is expected require less than 30 days. For JUANITO was encouraged to use CPAP at night topical lidocaine was used for tolerance due to trigeminal neuralgia as well as Trileptal with moderate success. For moderate aortic stenosis should continue to follow up with Cardiology as outpatient. For mood disorder was continued on Cymbalta and Abilify. For hypertension was continued on Diovan and verapamil Time Attestation Discharge Coordination Time (in mins): 34 Quality: Safe Use of Opioids Does Pt have an Active Cancer Diagnosis on the Problem List?: No Quality: Stroke Does the patient have a stroke diagnosis?: No Physical Exam Vital Signs: Vital Signs: Last Vital Signs Temp 96.8 F 12/13/24 08:00 Pulse 85 12/13/24 08:02 Resp 16 12/13/24 08:02 BP 143/63 H 12/13/24 08:00 Pulse Ox 96 12/13/24 08:00 O2 Del Method Nasal Cannula 12/13/24 08:00 O2 Flow Rate 2 12/13/24 08:00 Oxygen Flow Rate 2 12/07/24 21:04 BMI result Body Mass Index 36.4 General: AO X 3, no acute distress Resp: CTA bilateral, no accessory muscles used CVS: S1,S2,RRR GI: soft, non tender, non distended Neuro: motor grossly intact, alert Psych: appropriate affect, appropriate insight DS: Data Data Completed and Pending Completed studies during hospitalization [Text1]: Procedures Assistance with Respiratory Ventilation, Less than 24 Consecutive Hours, Continuous Positive Airway Pressure (08/22/24) Discharge Plan Discharge Anticipated Discharge Date/Time: 12/13/24 12:08 Patient Disposition: Xfer SNF Discharge Diagnosis: copd Referrals: [facility] [Outside] - 1 Week Antione Segura PA-C [Primary Care Provider, Internal Medicine] - 1 Week Discharge Medications: New prednisone 20 mg Tablet 40 mg PO DAILY Qty: 10 0RF omeprazole 20 mg Capsule,Delayed Release(Dr/Ec) 20 mg PO DAILY@0630 Qty: 0 0RF budesonide [Pulmicort] 0.5 mg/2 mL Suspension For Nebulization 0.5 mg inhalation RBID Qty: 0 0RF valsartan 40 mg Tablet 40 mg PO DAILY Qty: 0 0RF Protocol: Hold for SBP< HOLD for SBP < : 90 lidocaine [Lidocaine Pain Relief] 4 % Adhesive Patch,Medicated 1 patch transdermal DAILY Qty: 0 0RF Protocol: Apply to: Apply to: stkin Continued ipratropium-albuterol 0.5 mg-3 mg(2.5 mg base)/3 mL solution for nebulization 3 ml inhalation Q4H PRN (Reason: for dyspnea) Qty: 180 11RF verapamil 120 mg tablet 120 mg PO BID@0500,1999 lorazepam 0.5 mg tablet 1 mg PO DAILY PRN (Reason: MODERATE Anxiety) baclofen 20 mg tablet 20 mg PO TID@0500,1200,1999 ciclopirox 8 % solution 1 appl topical DAILY PRN (Reason: Fungal Infection) oxycodone 5 mg tablet 5 mg PO BID PRN (Reason: Severe Pain (Scale Score 7-10)) benzonatate 100 mg Capsule 100 mg PO TID PRN (Reason: Cough) Qty: 30 0RF codeine-guaifenesin 10-100 mg/5 mL Liquid 10 ml PO Q6H PRN (Reason: Cough) Qty: 473 0RF Mucus DM 30-600 mg Tablet Extended Release 12 Hr 1 tab PO BID Qty: 20 0RF oxcarbazepine 300 mg tablet 300 mg PO TID aripiprazole 5 mg tablet 5 mg PO DAILY atorvastatin 80 mg tablet 80 mg PO DAILY@1999 jnrmyvgjzx-qmjvdwbuiwaaz-ffsv 50-325-40 mg tablet 1 tab PO DAILY MRX1 PRN (Reason: Migraine Headache) hyoscyamine sulfate 0.125 mg tablet 0.25 mg PO Q6H PRN (Reason: Abdominal Discomfort) gabapentin 300 mg capsule 1,200 mg PO TID@0500,1200,2000 duloxetine 60 mg capsule,delayed release(DR/EC) 60 mg PO BID@0500,2000 (DME) nebulizer and compressor Device See Rx Instructions .Route Qty: 1 0RF Rx Instructions: As directed albuterol sulfate 90 mcg/actuation HFA aerosol inhaler 2 puff inhalation Q4H PRN (Reason: Shortness Of Breath Or Wheezing) aspirin 81 mg tablet,delayed release (DR/EC) 81 mg PO DAILY@1999 calcium carbonate-vitamin D3 600 mg-5 mcg (200 unit) tablet 1 tab PO DAILY@1999 roflumilast [Daliresp] 500 mcg tablet 500 mcg PO DAILY 30 Days Qty: 30 11RF prazosin 2 mg capsule 2 mg PO DAILY@1999 (DME) Oxygen Home Use Kit See Rx Instructions .Route Rx Instructions: As directed Discontinued valsartan 80 mg tablet 80 mg PO DAILY Qty: 30 2RF Discharge Orders: Discharge Order (Routine); Ordered 12/13/24 Ordered By: Yovany Lee Diet: Advance to usual diet Activity on Discharge: As tolerated Stand Alone Forms: Patient Portal Discharge page Print Language: [place] Care Plan Goals: recovery Health Concerns: copd Plan of Treatment: prednisone 5 more days, follow up with pulm, use lidocaine patch to tolerate cpap Assessment: see above
[2024-12-13 12:53] VITALS: BP 144/65; PULSE 93; RESP 18; TEMP 36; O2SAT 97
== END 2024-12-13 13:00 | disposition skilled nursing facility (03) | DRG 140 ==
LOC: HO.ED 12-08 01:08 → HO.EDOVER 12-08 01:08 → HO.S3 12-08 08:00
PROVIDERS: Hospitalist; Nurse Practitioner Family; Admitting Provider Student in an Organized Health Care Education/Training Program; Emergency Provider Internal Medicine; PCP Physician Assistant Surgical; Visit Provider Internal Medicine
DX: J44.1 Chronic obstructive pulmonary disease with (acute) exacerbation (principal); J96.21 Acute and chronic respiratory failure with hypoxia; Z99.81 Dependence on supplemental oxygen; G50.0 Trigeminal neuralgia; M54.81 Occipital neuralgia; J96.22 Acute and chronic respiratory failure with hypercapnia; R73.9 Hyperglycemia, unspecified; T38.0X5A Adverse effect of glucocorticoids and synthetic analogues, initial encounter; I10 Essential (primary) hypertension; G47.33 Obstructive sleep apnea (adult) (pediatric); F39 Unspecified mood [affective] disorder; E78.5 Hyperlipidemia, unspecified; I95.2 Hypotension due to drugs; T46.5X5A Adverse effect of other antihypertensive drugs, initial encounter; I35.0 Nonrheumatic aortic (valve) stenosis; Z20.822 Contact with and (suspected) exposure to COVID-19; Z79.82 Long term (current) use of aspirin; Z87.891 Personal history of nicotine dependence; Z79.899 Other long term (current) drug therapy
CPT/HCPCS: 0241U; 36415; 71045; 80053; 82784; 82803; 83036; 83880; 84443; 84484; 85025; 93005; 94640; 94660; 97162; 97166; 97530; 97535; 99285; J1650; J2919

== ENCOUNTER → 2024-12-07 21:23 | Outpatient (BNV) | payer BC, SELFPAY | PROVIDERS: Admitting Provider Student in an Organized Health Care Education/Training Program; Emergency Provider Internal Medicine; PCP Physician Assistant Surgical; Visit Provider Internal Medicine | DX: R94.31 Abnormal electrocardiogram [ECG] [EKG] (principal); R06.02 Shortness of breath | CPT/HCPCS: 93010 ==

== ENCOUNTER → 2024-12-08 00:57 | Outpatient (BNV) | payer BC, SELFPAY | PROVIDERS: Admitting Provider Student in an Organized Health Care Education/Training Program; Emergency Provider Internal Medicine; PCP Physician Assistant Surgical; Visit Provider Hospitalist | DX: I95.9 Hypotension, unspecified (principal); J98.4 Other disorders of lung; J44.1 Chronic obstructive pulmonary disease with (acute) exacerbation; I35.0 Nonrheumatic aortic (valve) stenosis | CPT/HCPCS: 99232 ==

== ENCOUNTER → 2024-12-08 00:57 | Outpatient (BNV) | payer BC, SELFPAY | PROVIDERS: Admitting Provider Student in an Organized Health Care Education/Training Program; Emergency Provider Internal Medicine; PCP Physician Assistant Surgical; Visit Provider Nurse Practitioner Family | DX: I95.9 Hypotension, unspecified (principal) | CPT/HCPCS: 99231; 99232; 99499 ==

== ENCOUNTER 2024-12-21 06:10 | Inpatient (IN) | payer BC, SELFPAY ==
[2024-12-21] VITALS (21 sets, daily range): BP systolic 82–173; BP diastolic 36–78; PULSE 74–110; RESP 14–24; TEMP 36.4–37.8; O2SAT 91–98; BMI 39.7
--- NOTE | ~2024-12-21 | XR_ITS ---
EXAMINATION: XR CHEST CLINICAL INFORMATION: productive cough COMPARISON: December 07, 2024. TECHNIQUE: 2 views of the chest were obtained. FINDINGS: EKG wires overlapping the chest. Patchy opacities in the right perihilar and right lower hemithorax. Linear opacities in the periphery of the left lower hemithorax. No pleural effusion. No pneumothorax. Cardiomediastinal silhouette size is normal. Multilevel thoracolumbar spondylosis. Degenerative changes in the acromioclavicular joint. Patient's large body habitus/obesity. XR/XR chest 2V IMPRESSION: Acute small airway inflammatory processes should be considered in the correct clinical settings. Electronically signed by: Juliocesar Partida MD 12/21/2024 09:39 AM EDT
--- NOTE | ~2024-12-21 | CT_ITS ---
CLINICAL HISTORY: Worsening lactic acidosis, hypoxia CT angiography chest with contrast. 3D Postprocessing. Comparison: CT chest 11/30/2024 Findings: Motion and streak artifact limit evaluation. The heart size is normal. RV/LV ratio is normal. Unremarkable thoracic aorta and great vessels. No aneurysm. No central or large proximal pulmonary emboli. Remaining pulmonary arteries are poorly opacified, not well evaluated. The visualized thyroid and mediastinum are unremarkable. 1.1 cm nodule medial left breast. This may be further evaluated with mammogram/ultrasound if indicated. Atelectasis. Ill-defined patchy and nodular consolidations in the right middle lobe, to a lesser extent lingula. No significant pleural effusion or pneumothorax. Small bilateral pulmonary nodules measuring no more than 6 mm. Per Fleischner criteria: Low-risk patients: CT at 3-6 months, then consider CT at 18-24 months. High-risk patients: CT at 3-6 months, then CT at 18-24 months. Please see same day CT abdomen pelvis report. No acute fractures. Thoracic diffuse idiopathic skeletal hyperostosis. Oval-shaped sclerotic focus noted at T5 may reflect bone island, nonspecific. No erosive changes. IMPRESSION: 1. No central or large proximal pulmonary emboli. Remaining pulmonary arteries are poorly opacified, not well evaluated. 2. Ill-defined patchy and nodular consolidations in the right middle lobe, to a lesser extent lingula. 3. Additional findings as described. This document has been electronically signed by: Livan Palm MD on 12/21/2024 21:17:27
--- NOTE | ~2024-12-21 | CT_ITS ---
CLINICAL HISTORY: Severe lactic acidosis, hypotension CT abdomen and pelvis with contrast Comparison: CT/SR - CT ABDOMEN PELVIS WO IV CON - 12/01/24 11:04 EDT Findings: Please see same day CTA chest report. Hepatomegaly. Question subtle hepatic nodular contours can be seen with cirrhosis, should be correlated clinically Thickening of the left adrenal gland, nonspecific. Nonobstructive tiny punctate less than 2 mm calculi in the left kidney. Distended gallbladder. Distended stomach with air-fluid level. Large colonic stool burden. Diffuse small bowel dilatation with air-fluid levels and transition point to decompression in the midline pelvis suggesting small bowel obstruction. Colonic diverticulosis without diverticulitis. Normal appendix. Osteopenia. Focal spondylosis at L5-S1. IMPRESSION: Mild grade SBO described. Nonobstructive tiny punctate less than 2 mm calculi in the left kidney. This document has been electronically signed by: Livan Palm MD on 12/21/2024 21:20:58
--- NOTE | 2024-12-21 07:50 | ED_ITS ---
HPI - General Adult General Chief complaint: Dyspnea Stated complaint: cough Time Seen by Provider: 12/21/24 07:50 Source: patient, EMS, RN notes reviewed and old records reviewed Mode of arrival: EMS Limitations: no limitations History of Present Illness ED Provider: Shad HPI narrative: Patient is a 59-year-old female with history of chronic hypercapneic respiratory failure on baseline 02, HTN, asthma, COPD, smoker, JUANITO, HLD, pulmonary nodules, anxiety, mood disorder presenting to the ED with complaint of productive cough and dyspnea since yesterday afternoon. States she came home from rehab yesterday, developed cough after returning home. Subjective fever. States sputum was initially clear then transitioned to yellow. Denies any abdominal pain, nausea, vomiting, or diarrhea. States she felt fine prior to discharge from rehab. MD complaint: cough, dyspnea Onset (ago): hour(s) Related Data Home Medications ?Medication ?Instructions ?Recorded ?Confirmed atorvastatin 80 mg tablet 80 mg PO DAILY@199903/04/23 12/08/24 hrhkspaocj-xutyptrcevhpe-ickqodyc 1 tab PO DAILY MRX1 PRN Migraine 03/04/23 12/08/24 50 mg-325 mg-40 mg tablet Headache duloxetine 60 mg capsule,delayed 60 mg PO BID@0500,200 0 03/04/23 12/08/24 release gabapentin 300 mg capsule 1,200 mg PO TID@0500,1200,20 00 03/04/23 12/08/24 hyoscyamine sulfate 0.125 mg tablet 0.25 mg PO Q6H PRN Abdominal 03/04/23 12/08/24 Discomfort Oxygen Home Use 04/16/23 10/29/24 prazosin 2 mg capsule 2 mg PO DAILY@199904/16/23 12/08/24 albuterol sulfate 90 mcg/actuation 2 puff inhalation Q 4H PRN 01/31/24 12/08/24 aerosol inhaler Shortness Of Breath Or Wheez ing aspirin 81 mg tablet,delayed 81 mg PO DAILY@05/2212/08/24 release calcium 600 mg (as 1 tab PO DAILY@199906/20/24 12/08/24 carbonate)-vitamin D3 5 mcg (200 unit) tablet verapamil 120 mg tablet 120 mg PO BID@0500,2000 01/1 9/25 06/27/25 baclofen 20 mg tablet 20 mg PO TID@0500,1200,2000 10/29/24 12/08/24 ciclopirox 8 % topical solution 1 appl topical DAILY P RN Fungal 10/29/24 12/08/24 Infection aripiprazole 5 mg tablet 5 mg PO DAILY 12/01/2412/08 Previous Rx's ?Medication ?Instructions ?Recorded nebulizer and compressor #1 ea 12/16/23 ipratropium 0.5 mg-albuterol 3 mg 3 ml inhalation Q4H PRN for 03/02/24 (2.5 mg base)/3 mL nebulization dyspnea #180 mL soln roflumilast 500 mcg tablet 500 mcg PO DAILY 30 days #3 0 tabs 10/06/24 (Daliresp) benzonatate 100 mg capsule 100 mg PO TID PRN Cough #30 caps 10/31/24 dextromethorphan-guaifenesin 30 1 tab PO BID #20 tabs 10/31/24 mg-600 mg tablet extended hr (Mucus DM) budesonide 0.5 mg/2 mL suspension 0.5 mg (2 mL) inhala tion RBID #0 mL 12/13/24 for nebulization (Pulmicort) codeine 10 mg-guaifenesin 100 mg/5 10 ml PO Q6H PRN Co ugh #473 mL 12/13/24 mL oral liquid lidocaine 4 % topical patch 1 patch transdermal DAILY #0 ea 12/13/24 (Lidocaine Pain Relief) lorazepam 0.5 mg tablet 1 mg (2 x 0.5 mg) PO DAILY P RN 12/13/24 MODERATE Anxiety 10 days #10 tabs omeprazole 20 mg capsule,delayed 20 mg PO DAILY@0630 # 0 caps 12/13/24 release oxcarbazepine 300 mg tablet 300 mg PO TID #21 tabs 08/08 oxycodone 5 mg tablet 5 mg PO BID PRN Severe Pain (Scale 12/13/24 Score 7-10) #10 tabs prednisone 20 mg tablet 40 mg (2 x 20 mg) PO DAILY # 10 tabs 12/13/24 valsartan 40 mg tablet 40 mg PO DAILY #0 tabs 12/13 Allergies Allergy/AdvReac Type Severity Reaction Status Date / Time Iodinated Contrast Media (IV Allergy Intermediate HIVES Verified 12/21/24 06:30 CONTRAST) latex (LATEX) Allergy Unknown RASH Verified 12/21/24 06:30 adhesive tape Allergy Rash Verified 12/21/24 06:30 morphine (MORPHINE) AdvReac Unknown VOMITING Verified 12/21/24 06:30 Review of Systems 2 Review of Systems: As per HPI Yes all other systems are reviewed and are negative Constitutional: Constitutional: Reports as per HPI [facility] Past Medical History Medical History Panic disorder Hypertension Chronic hypercapnic respiratory failure Aortic stenosis Obesity (BMI 30-39.9) Asthma Acute exacerbation of chronic obstructive pulmonary disease Chronic lung disease Hypogammaglobulinemia Smoker JUANITO (obstructive sleep apnea) Allergies Elevated troponin COPD (chronic obstructive pulmonary disease) Trigeminal neuralgia Pulmonary nodules Mixed hyperlipidemia Peripheral neuropathy Tobacco use disorder Mood disorder Surgical History History of esophagogastroduodenoscopy (EGD) History of colonoscopy History of lumbar discectomy History of tubal ligation History of excision of mass History of shoulder surgery Social History Social History Household Members: Spouse Housing: Condominium Do you presently have visiting nurse or other home services: Yes ([facility] Alcohol intake: never Comment: pt. refusing high fall risk band. Patient Tobacco Use Status: Former Tobacco user Tobacco use type: Cigarette Cigarette Packs Per Day: 4 Cigarettes Per Day: 80.0 Years Smoked: 40 Smoked in Last 30 Days: No e-Cigarette/Vaping Use: Currently Using Second Hand Smoke Exposure: No Use of substances other than those prescribed or required for medical reasons: No Substance Use Type: Marijuana Advance Directives: Yes Advance Directives on File: Yes Advance Directives Date on File: 03/09/23 Do you have a plan to hurt others: No Plan service: No Physical Exam ED Vital Signs: Vital Signs - 24 hr 12/21/24 06:26 12/21/24 06:26 12/21/24 06:41 Temperature 99.0 F 98.2 F 100.1 F Pulse Rate 100 98 Respiratory Rate 22 H 14 Blood Pressure 93/63 91/73 Pulse Oximetry 94 93 Oxygen Delivery Method Nasal Cannula Nasal Cannula Oxygen Flow Rate 2 12/21/24 07:45 12/21/24 08:35 12/21/24 08:46 Temperature 98.6 F Pulse Rate 87 78 77 Respiratory Rate 21 H 21 H 22 H Blood Pressure 92/40 L 84/36 L Pulse Oximetry 92 95 Oxygen Delivery Method Nasal Cannula Nasal Cannula Oxygen Flow Rate 2 4 12/21/24 09:47 12/21/24 10:38 12/21/24 10:47 Temperature 98.9 F 98.0 F Pulse Rate 76 75 74 Respiratory Rate 20 20 20 Blood Pressure 84/55 L 100/53 L 96/51 L Pulse Oximetry 95 96 97 Oxygen Delivery Method Nasal Cannula Nasal Cannula Nasal Cannula Oxygen Flow Rate 4 4 4 BMI result Body Mass Index 39.7 Vital signs have been reviewed and appear to be correct. Blood pressure hypotensive. Heart rate normal. Respiratory rate normal. Temperature elevated. Oxygen saturation normal. Const General: cooperative, no acute distress and ill appearing chronically Orientation/consciousness: oriented to person, oriented to place, oriented to time and patient oriented x3 Limitations: no limitations HENMT Head: Yes normocephalic and Yes atraumatic Ears: external ears normal General nose exam: Normal external nose present Face and sinus: Yes face symmetric Mouth: oropharynx normal and moist mucous membranes Throat: Yes uvula midline Eyes Pupils: Equal, round and reactive pupils present Neck Neck: Yes normal visual inspection and Yes supple Resp Effort & Inspection: normal respiratory effort, able to speak in complete sentences, Actively coughing Quality: productive and uses accessory muscles Auscultation: wheezes expiratory wheezes and throughout Cardio Rate: regular rate Rhythm: regular rhythm Heart sounds: S1 normal heart sound present and S2 normal heart sound present GI Palpation (GI): Soft to palpation and nontender Auscultation: normoactive bowel sounds General: Yes no CVA tenderness Back/Spine/Pelvis Back: no CVA tenderness Skin General skin exam: elasticity normal and turgor normal Neuro General: oriented to person, oriented to place, oriented to time, patient oriented x3, moves all extremities, no focal motor deficits and CN's II-XI intact bilaterally Cranial nerves: Yes Equal, round and reactive pupils present Cognition (Neuro): normal cognition Extrem General: Yes full ROM, Yes no pedal edema and Yes no calf tenderness Psych Mental Status: mental status grossly normal Affect: normal affect Thought process: Normal thought process present Course Course Course Narrative: patient is obese IBW is 48kg so 30cc/kg bolus is 1440 I have ordered 2000mL of fluid TOVA 12/21/24 801am Reevaluation(s) Reevaluation #1: Focused exam for sepsis performed at 1115 on 12/21/24 Time: 11:16 Medications Administered Discontinued Medications Generic Name Dose Route Start Last Admin Trade Name Freq PRN Reason Stop Dose Admin Baclofen 20 mg 12/21/24 10:23 12/21/24 10:35 Baclofen 20 Mg Tablet PO 12/21/24 10:24 20 mg ONCE ONE Administration Albuterol Sulfate 5 mg/ 0 mg 12/21/24 08:21 12/21/24 08:37 Albuterol/Ipratropium 3 ml INHALE 12/21/24 08:22 1 each ONCE ONE Administration Gabapentin 1,200 mg 12/21/24 10:04 12/21/24 10:13 Gabapentin 600 Mg Tablet PO 12/21/24 10:05 1,200 mg ONCE ONE Administration Lactated Ringer's 1,000 mls @ 999 mls/hr 12/21/24 07:34 12/21/24 11:04 Lr IV 12/21/24 08:34 Infused .Q1H1M ONE Infusion Cefepime HCl 2 gm in 50 mls @ 100 mls/hr 12/21/24 07:34 12/21/24 09:12 Maxipime IV 12/21/24 08:03 Infused ONCE ONE Infusion Lactated Ringer's 1,000 mls @ 999 mls/hr 12/21/24 07:45 12/21/24 08:13 Lr IV 12/21/24 08:45 999 mls/hr .Q1H1M ONE Administration Acetaminophen 1,000 mg in 100 mls @ 400 mls/hr 12/21/24 07:45 12/21/24 10:02 Ofirmev IV 12/21/24 07:59 Infused ONCE ONE Infusion Medical Decision Making Medical Decision Making [facility] Narrative: Patient is a 59-year-old female with history of chronic hypercapneic respiratory failure on baseline 02, HTN, asthma, COPD, smoker, JUANITO, HLD, pulmonary nodules, anxiety, mood disorder presenting to the ED with complaint of productive cough and dyspnea since yesterday afternoon. On exam patient is awake, A+Ox3, VS WNL, afebrile, normal neurological exam without focal deficits, physical exam findings as above. Given reported symptoms and physical exam findings, initial differential includes but is not limited to viral illness, bronchitis, pneumonia, acute on chronic respiratory failure. Patient activated as sepsis alert due to hypotension and cough, abx ordered. Labs notable for leukocytosis, elevated CRP. No evidence of infection on UA. Viral serology negative. X-ray chest notable for small airways inflammation, no evidence of pneumonia. My interpretation is in agreement with the radiologist's interpretation. Case discussed with hospitalist, Dr. Harrison Differential Diagnosis Differential Diagnoses: The differential diagnosis associated with the presentation includes As per [facility] Admission/Observation Consideration of admission/observation: Escalation of care including admission/observation considered Consult Healthcare Provider Management of the patient was discussed with: Hospitalist Lab Data [facility] Lab Attestation statement: I reviewed the patient's lab results. as per [facility] 12/21/24 08:06 12/21/24 08:06 Labs: Lab Results 12/21/24 12/21/24 12/21/24 Range/Units 08:06 08:16 08:29 WBC 15.1 H (4.8-10.8) X10*3/uL RBC 3.77 L (4.20-5.50) X10*6/uL Hgb 12.2 (12.0-16.0) g/dl Hct 36.9 L (37.0-47.0) % MCV 97.9 (80.0-98.0) fL MCH 32.4 (27.0-33.0) pg MCHC 33.1 (31.0-35.0) g/dl RDW 14.1 (11.0-16.0) % Plt Count 343 (160-400) X10*3/uL MPV 8.8 L (9.4-12.3) fL Immature Gran % (Auto) 1.0 H (0.0-0.4) % Neut % (Auto) 78.2 H (45-73) % Lymph % (Auto) 10.5 L (20-40) % [place] % (Auto) 8.4 (2-11) % Eos % (Auto) 1.7 (0-4) % Baso % (Auto) 0.2 (0-2) % Lymph # (Auto) 1.6 (1.2-4.9) X10*3/uL [place] # (Auto) 1.3 H (0.1-1.2) X10*3/uL Eos # (Auto) 0.3 (0.0-0.4) X10*3/uL Baso # (Auto) 0.0 (0.0-0.2) X10*3/uL Abs Immat Gran (auto) 0.15 H (0.00-0.03) X10*3/uL Absolute Neuts (auto) 11.8 H (2.0-8.3) x10*3/uL Absolute Nucleated RBC 0.000 (0.0-0.012) X10*3/uL Nucleated RBC % (auto) 0.0 (0.0-0.2) /100WBC VBG pH 7.36 (7.32-7.43) VBG pCO2 63 mmHg VBG pO2 48 mmHg VBG HCO3 36 H (22-26) mmol/L VBG O2 Saturation 75.0 % VBG Base Excess 8.9 mmol/L Sodium 140 (135-145) mmol/L Potassium 4.0 (3.3-5.1) mmol/L Chloride 103 (96-108) mmol/L Carbon Dioxide 30 H (22-29) mmol/L Anion Gap 11 L (12-20) BUN 17 H (9-16) mg/dL Creatinine 0.86 (0.5-1.4) mg/dL Estim Creat Clear Calc 72.4 Estimated GFR > 60 Random Glucose 120 H (60-115) mg/dL Lactic Acid 1.7 (0.5-2.0) mmol/L Calcium 9.5 D (8.4-10.2) mg/dL Magnesium 2.1 (1.6-2.6) mg/dL Total Bilirubin 0.2 (0.0-1.0) mg/dL Direct Bilirubin < 0.2 (0.0-0.5) mg/dL AST 18 (5-31) U/L ALT 17 (0-31) U/L Alkaline Phosphatase 53 (39-117) U/L Troponin I High Sens 10.1 D (<3.5-17.0) ng/L C-Reactive Protein 1.32 H (< or = 0.50) mg/dL B-Natriuretic Peptide 24 (<100) pg/mL Total Protein 6.4 L (6.5-8.0) g/dL Albumin 4.0 (3.5-5.0) g/dL Lipase 13 (8-78) U/L Procalcitonin 0.05 ng/mL Urine Color Dark Yellow Urine Appearance Clear Urine pH 5.0 (5.0-9.0) Ur Specific [place] >= 1.030 H (1.005-1.025) Urine Protein Trace (Neg-Trace) mg/dL Urine Glucose (UA) Negative (Negative) mg/dL Urine Ketones Trace (Negative) mg/dL Urine Blood Negative (Negative) Urine Nitrite Negative (Negative) Ur Leukocyte Esterase Negative (Negative) Influenza Type A (PCR) NEGATIVE (Negative) Influenza Type B (PCR) NEGATIVE (Negative) RSV RNA Qual (PCR) NEGATIVE (Negative) SARS-CoV-2 RNA (RT-PCR) NEGATIVE (Negative) Independent Interpretation I performed an independent interpretation of an: Plain X-Ray Interpretation: Chest x-ray notable for small airway inflammation, no evidence of pneumonia Radiology Impression Discussion of test interpretation with radiology: I have reviewed the radiologist's reading. Radiologist Impression: XR/XR chest 2V IMPRESSION: Acute small airway inflammatory processes should be considered in the correct clinical settings. External Record Review External record reviewed: Inpatient record, Office record and Outpatient record Prescription Management I considered prescription management with: Antibiotic Critical Care Time Critical Care Time Critical Care Time: Yes Total Critical Care Time: 55 Attestation: .cc Discharge Plan Discharge Clinical Impression: Acute on chronic respiratory failure, Sepsis Patient Disposition: Admitted As Inpatient Print Language: Yakut
[2024-12-21] MEDS: Lactated Ringers 1,000 ML 999 ML IV ×2 (08:13)
[2024-12-21 08:17] LABS: MANUAL DIFF FLAG NO
[2024-12-21 08:17] LABS: Venous Blood Gas Refer to POC result
[2024-12-21 08:20] LABS: VBG HCO3 36 mmol/L (22-26); VBG O2 % Saturation 75.0 %
[2024-12-21 08:20] LABS: Hematocrit 36.9 % (37.0-47.0); Hemoglobin 12.2 g/dl (12.0-16.0); Imm Gran Abs Auto 0.15 X10*3/uL (0.00-0.03); Imm Gran Pct Auto 1.0 % (0.0-0.4); Lymphocytes Absolute Auto 1.6 X10*3/uL (1.2-4.9); Mean Corpuscular HGB Conc 33.1 g/dl (31.0-35.0); Mean Corpuscular Hemoglobin 32.4 pg (27.0-33.0); Mean Corpuscular Volume 97.9 fL (80.0-98.0); NRBC Abs Auto 0.000 X10*3/uL (0.0-0.012); NRBC Pct Auto 0.0 /100WBC (0.0-0.2); Platelet Count 343 X10*3/uL (160-400); Red Blood Count 3.77 X10*6/uL (4.20-5.50); White Blood Count 15.1 X10*3/uL (4.8-10.8)
[2024-12-21] MEDS: cefEPime HCl/D5W 2 GM/50 ML PIGGYBACK IV ×2 (08:33→17:31)
--- NOTE | 2024-12-21 08:33 | PC.NURSE ---
Delayed Abx d/t lack of tech to draw cultures. Abx started as soon as 2nd set of cultures drawn.
--- NOTE | 2024-12-21 08:35 | PC.NURSE ---
delay in the ABX administration do to lack of tech support on the floor, pt arrived with and IV in the left hand that EMS started and NUBIA rn started a second line in the right AC to get the blood work started
[2024-12-21 08:37] LABS: Appearance Urine Clear; Glucose Urine UA Negative (Negative); PH 5.0 (5.0-9.0); Specific Gravity - Urine >= 1.030 (1.005-1.025)
[2024-12-21] MEDS: Albuterol Sulfate 5 MG, Albuterol/Iprat 2.5/0.5MG 3 ML 3 ML INHALE (08:37)
[2024-12-21 08:42] LABS: Alanine Aminotransferase 17 U/L (0-31); Albumin Level 4.0 g/dL (3.5-5.0); Alkaline Phosphatase 53 U/L (39-117); Anion Gap 11 (12-20); Aspartate Amino Transferase 18 U/L (5-31); Blood Urea Nitrogen 17 mg/dL (9-16); Calcium 9.5 mg/dL (8.4-10.2); Carbon Dioxide 30 mmol/L (22-29); Chloride 103 mmol/L (96-108); Creatinine Clr Calc Pharmacy 72.4; Estimated Glomerular Filt Rate > 60; Lipase 13 U/L (8-78); Magnesium 2.1 mg/dL (1.6-2.6); Potassium 4.0 mmol/L (3.3-5.1); Sodium 140 mmol/L (135-145); Total Protein 6.4 g/dL (6.5-8.0)
[2024-12-21 08:44] LABS: Troponin-I High Sensitivity 10.1 ng/L (<3.5-17.0)
[2024-12-21 08:57] LABS: Resp Syncy Virus RNA Qual PCR NEGATIVE (Negative); SARS COV2 PCR INHOUSE NEGATIVE (Negative)
[2024-12-21 08:59] LABS: Procalcitonin 0.05 ng/mL
--- NOTE | 2024-12-21 09:00 | PC.NURSE ---
59 F presents to ED with a cough, R flank and L facial pain (chronic). Pt was febrile, hypotensive and took BP meds this morning. A+Ox4. RR even but some audble wheezing heard, receiving nebulizer treatment. Pt denies SOB at this time. Pt denies CP.
[2024-12-21 09:26] LABS: B Type Natriuretic Peptide 24 pg/mL (<100)
[2024-12-21] MEDS: Albuterol Sulfate 2.5 MG, Albuterol/Iprat 2.5/0.5MG 3 ML 3 ML INHALE (11:28)
--- NOTE | 2024-12-21 11:49 | PM.IMHP ---
History of Present Illness Date of Service: 12/21/24 Attending physician on admission: Desiree Peoples Chief Complaint: Shortness on breath Zulma Alves is a 59 years old woman with past medical history significant for COPD on home oxygen on 1-3L/min, hyperlipidemia, nephrolithiasis, CVA, obesity, moderate , chronic pain and oxycodone and essential hypertension presents to the emergency department complaining of worsening shortness on breath, productive cough of green sputum and suggestive fever that started today. She was recently discharged from the hospital with similar symptoms. She also reported some nausea but denied events of vomiting. She did not report headache, chest pain, abdominal pain or diarrhea. She did not report any acute urinary symptoms. was at bedside. In the ED, she was found to have low blood pressure (lowest 84/36). There is no tachycardia or fever. She has been placed on 4 L/min supplemental oxygen and currently receiving a breathing treatment. Blood workup was remarkable for leukocytosis of 15.1. Hemoglobin is 12.2 and platelets 343. Venous gas showed pH of 7.36 and pCO2 is 63. Bicarb is 36. There are no significant electrolyte imbalances. BUN is 17 and creatinine 0.86. LFTs are normal and C-reactive protein is 1.32. Procalcitonin is normal, 0.05. Last TSH (July 10) is normal. Urinalysis remarkable for elevated specific gravity , trace protein with no findings of UTI. Serology for COVID-19, influenza and RSV is negative. CXR showed acute small airway inflammation but no consolidation or pleural effusions. ED Tx: LR 2 L bolus, cefepime 2 g and acetaminophen 1 g IV. Review of Systems Review of Systems: All 12 systems were reviewed and normal except as noted in HPI. [facility] Medical History Panic disorder Hypertension Chronic hypercapnic respiratory failure Aortic stenosis Obesity (BMI 30-39.9) Asthma Acute exacerbation of chronic obstructive pulmonary disease Chronic lung disease Hypogammaglobulinemia Smoker JUANITO (obstructive sleep apnea) Allergies Elevated troponin COPD (chronic obstructive pulmonary disease) Trigeminal neuralgia Pulmonary nodules Mixed hyperlipidemia Peripheral neuropathy Tobacco use disorder Mood disorder Surgical History History of esophagogastroduodenoscopy (EGD) History of colonoscopy History of lumbar discectomy History of tubal ligation History of excision of mass History of shoulder surgery Social History Household Members: Spouse Housing: Condominium Do you presently have visiting nurse or other home services: Yes ([facility] Alcohol intake: never Comment: pt. refusing high fall risk band. Patient Tobacco Use Status: Former Tobacco user Tobacco use type: Cigarette Cigarette Packs Per Day: 4 Cigarettes Per Day: 80.0 Years Smoked: 40 Smoked in Last 30 Days: No e-Cigarette/Vaping Use: Currently Using Second Hand Smoke Exposure: No Use of substances other than those prescribed or required for medical reasons: No Substance Use Type: Marijuana Advance Directives: Yes Advance Directives on File: Yes Advance Directives Date on File: 03/09/23 Do you have a plan to hurt others: No Plan service: No Meds Allergies Allergy/AdvReac Type Severity Reaction Status Date / Time Iodinated Contrast Media (IV Allergy Intermediate HIVES Verified 12/21/24 06:30 CONTRAST) latex (LATEX) Allergy Unknown RASH Verified 12/21/24 06:30 adhesive tape Allergy Rash Verified 12/21/24 06:30 morphine (MORPHINE) AdvReac Unknown VOMITING Verified 12/21/24 06:30 Active Medications: Current Medications Acetaminophen (Acetaminophen 325 Mg Tablet) 975 mg PO Q6H PRN PRN Reason: Pain, Mild 1-3,fever,headache Calcium Carbonate (Calcium Carbonate 750 Mg Tab.Chew) 750 mg PO Q4H PRN PRN Reason: Heartburn Enoxaparin Sodium (Enoxaparin Sodium 40 Mg/0.4 Ml Syringe) 40 mg SUBCUT Q24H [place] Magnesium Hydroxide (Milk Of Magnesia 30 Ml Oral.Susp) 30 ml PO DAILY PRN PRN Reason: Constipation Melatonin (Melatonin 3 Mg Tablet) 6 mg PO BEDTIME PRN PRN Reason: Insomnia Sodium Chloride (0.9 % Sodium Chloride Flush 3 Ml Syringe) 3 ml IVFLUSH QSHIFT [place] Home Medications ?Medication ?Instructions ?Recorded ?Confirmed ?Last Taken ?Type atorvastatin 80 mg tablet 80 mg PO DAILY@199903/04/23 12/08/24 12/07/24 History ehpkrywrzs-kycuitadgcdgw-ejkzypas 1 tab PO DAILY MRX1 PRN Migraine 03/04/23 12/08/24 05/21/24 20:00 History 50 mg-325 mg-40 mg tablet Headache duloxetine 60 mg capsule,delayed 60 mg PO BID@050,199903/04/23 12/08/24 12/07/24 History release gabapentin 300 mg capsule 1,200 mg PO TID@0500,1200,199903/04/23 12/08/24 12/07/24 History hyoscyamine sulfate 0.125 mg tablet 0.25 mg PO Q6H PRN Abdominal 03/04/23 12/08/24 05/21/24 20:00 History Discomfort Oxygen Home Use 04/16/23 10/29/24 10/28/24 History prazosin 2 mg capsule 2 mg PO DAILY@199904/16/23 12/08/24 12/07/24 History albuterol sulfate 90 mcg/actuation 2 puff inhalation Q4H PRN 01/31/24 12/08/24 05/21/24 20:00 History aerosol inhaler Shortness Of Breath Or Wheezing aspirin 81 mg tablet,delayed 81 mg PO DAILY@199905/22/24 12/08/24 12/07/24 History release calcium 600 mg (as 1 tab PO DAILY@199906/20/24 12/08/24 12/07/24 History carbonate)-vitamin D3 5 mcg (200 unit) tablet verapamil 120 mg tablet 120 mg PO BID@050,199907/02/24 12/08/24 12/07/24 History baclofen 20 mg tablet 20 mg PO TID@0500,1200,199910/29/24 12/08/24 12/07/24 History ciclopirox 8 % topical solution 1 appl topical DAILY PRN Fungal 10/29/24 12/08/24 10/28/24 History Infection aripiprazole 5 mg tablet 5 mg PO DAILY 12/01/24 12/08/24 12/07/24 History Physical Exam Vital Signs and Narrative: Vital Signs: Last Vital Signs Temp 98.0 F 12/21/24 10:47 Pulse 80 12/21/24 11:32 Resp 21 H 12/21/24 11:32 BP 101/59 L 12/21/24 11:32 Pulse Ox 95 12/21/24 11:32 O2 Del Method Room Air 12/21/24 11:32 O2 Flow Rate 4 12/21/24 10:47 Oxygen Flow Rate 2 12/21/24 06:26 BMI result Body Mass Index 39.7 Constitutional - Awake and Alert, No apparent distress. Obese. Pleasant. Cooperative. Breathing treatment mask in place. HEENT - PER, EOMI Heart - RRR, (+) holosystolic murmur best heard in the right upper sternal border. Lungs - Normal lung expansion, Normal respiratory effort, No respiratory distress. Tachypnea. End-expiratory wheezes. No crackles or rhonchi. Abdomen - NT / ND; +BS; No rebound or guarding Extremities - no calf tenderness bilaterally, no swelling Musculoskeletal - Normal inspection, normal ROM Skin - Warm/Dry Neurological - Alert & oriented x3. Patient moving all extremities spontaneously. Normal speech. Psychological - Appropriate affect Results Labs 12/21/24 08:06 12/21/24 08:06 Labs: Laboratory Results - last 24 hr 12/21/24 12/21/24 12/21/24 08:06 08:16 08:29 MCV 97.9 MCH 32.4 MCHC 33.1 RDW 14.1 Plt Count 343 MPV 8.8 L Immature Gran % (Auto) 1.0 H Neut % (Auto) 78.2 H Lymph % (Auto) 10.5 L [place] % (Auto) 8.4 Eos % (Auto) 1.7 Baso % (Auto) 0.2 Lymph # (Auto) 1.6 [place] # (Auto) 1.3 H Eos # (Auto) 0.3 Baso # (Auto) 0.0 Abs Immat Gran (auto) 0.15 H Absolute Neuts (auto) 11.8 H Absolute Nucleated RBC 0.000 Nucleated RBC % (auto) 0.0 VBG pH 7.36 VBG pCO2 63 VBG pO2 48 VBG HCO3 36 H VBG O2 Saturation 75.0 VBG Base Excess 8.9 Anion Gap 11 L Estim Creat Clear Calc 72.4 Estimated GFR > 60 Random Glucose 120 H Lactic Acid 1.7 Calcium 9.5 D Magnesium 2.1 Total Bilirubin 0.2 Direct Bilirubin < 0.2 AST 18 ALT 17 Alkaline Phosphatase 53 C-Reactive Protein 1.32 H B-Natriuretic Peptide 24 Total Protein 6.4 L Albumin 4.0 Lipase 13 Procalcitonin 0.05 Urine Color Dark Yellow Urine Appearance Clear Urine pH 5.0 Ur Specific [place] >= 1.030 H Urine Protein Trace Urine Glucose (UA) Negative Urine Ketones Trace Urine Blood Negative Urine Nitrite Negative Ur Leukocyte Esterase Negative Influenza Type A (PCR) NEGATIVE Influenza Type B (PCR) NEGATIVE RSV RNA Qual (PCR) NEGATIVE SARS-CoV-2 RNA (RT-PCR) NEGATIVE Imaging Radiologist's Impressions: Impressions Chest X-Ray 12/21/24 09:18 IMPRESSION: Acute small airway inflammatory processes should be considered in the correct clinical settings. Electronically signed by: Juliocesar Partida MD 12/21/2024 09:39 AM EDT RP Assessment and Plan (1) Acute on chronic respiratory failure with hypoxia and hypercapnia: Status: Acute (2) Leukocytosis: Qualifiers: Leukocytosis type: unspecified Qualified Code(s): D72.829 - Elevated white blood cell count, unspecified Status: Acute Plan Zulma Alves is a 59 y/o woman admitted with: Acute on chronic hypoxic and hypercapnic respiratory failure secondary to acute exacerbation of COPD in the setting of underlying COPD. Admit to hospitalist service. Telemetry. Pulse oximetry. Supplemental O2 to keep O2 sats > 90%. Continue bronchodilator therapy, IV steroids and empiric IV antibiotic therapy with doxycycline. Continue roflumilast. Check respiratory panel. CPAP at bedtime if tolerated. Leukocytosis. Likely secondary to steroids and dehydration (high specific gravity, normal Hgb . Normal lactic acid, no fever or tachycardia. Blood cultures were obtained -will follow results. Continue to monitor WBC count. Hyperlipidemia. Continue statin. Essential hypertension. Hold prazosin for now due to soft BP. Furosemide and losartan was discontinued during last hospitalization. History of trigeminal neuralgia. Continue gabapentin, baclofen, topical lidocaine oxcarbazepine. Chronic back pain. Continue oxycodone. Patient requested IV Dilaudid. Moderate aortic stenosis. No evidence of acute CHF. Patient denied chest pain or syncopal episode. Mood disorder. Continue lorazepam as needed, duloxetine and aripiprazole. History of CVA. Continue aspirin and statin. Obesity, class II. BMI 39.7. DVT prophylaxis: Lovenox Code: Full Patient will need hospitalization for at least 2 midnights for acute hypercapnic and hypoxic respiratory failure secondary to COPD treatment with bronchodilator therapy, empiric IV antibiotic therapy and IV steroids. Quality Stroke Does the patient have a stroke diagnosis?: No VTE Prior VTE?: No VTE Risk Level:: Medical - moderate - high VTE Device Contraindication: Treatment Not Indicated VTE Drug Contraindication: N/A - Med Ordered
--- NOTE | 2024-12-21 12:18 | PC.NURSE ---
Pt is hypotensive, provider notified. Dilaudid held at this time d/t BP
[2024-12-21] MEDS: Albumin Human 25 % 100 ML 133.33 ML IV (12:25)
[2024-12-21] MEDS: vancomycin/NS 2,000 MG/500 ML PLAST..BAG 250 MG IV (12:40)
--- NOTE | 2024-12-21 13:04 | PHA.PROG ---
Admission Date/Time: December 21, 2024 11:12 Indication: Sepsis Weight in k.254 kg Adjusted body weight in K.7 kg [place] body weight in K.8 kg Obesity Dosing Indication % IBW:199% Serum Creatinine - Last 168 Hours 12/21/24 08:06 Creatinine 0.86 Estimated CrCl and GFR - Last 168 Hours 12/21/24 08:06 Estim Creat Clear Calc 72.4 Estimated GFR > 60 Vancomycin Loading Dose: 2000 mg Current Vancomycin Dosing Regimen: 1000 mg Q12H Date and Time for next Vancomycin Level to be drawn: 12/22 @ 1100 Pharmacist Comments on Vancomycin Plan: patient is receiving vancomycin load dose in the ER 12/21 @ 1240 maintenance dose vancomycin 1000 mg Q12H is scheduled to start 12/22 @ 0100. Predicted AUC 502 with a trough of 16.4. level will be drawn prior to the 3rd dose on 12/22 pharmacy will monitor renal function daily Yesi Curry PharmD Vancomycin dosing will take advantage of [employer] as a clinical decision support tool that uses Bayesian modeling to calculate individual patient's pharmacokinetic parameters and forecast the patient's drug concentration time course with the target goal AUC 24 range of 400 - 600 mg/L/hr.
--- NOTE | 2024-12-21 13:35 | PHA.MEDREC ---
Addendum entered by Yesi Curry RPh 12/21/24 14:29: reviewed by [facility] Original Note: Pharmacy Consult ? Medication Reconciliation Pharmacy has completed the medication reconciliation. Spoke with pt and she was just discharged with [facility] in the last 24 hours and had her paperwork from them. Pt confirmed she takes certain medications at certain times when she is at home and we were able to run through and confirm those medications. Patient confirmed her Oxcarbazapine 300mg tab and states she takes it BID and not the TID like it is written for; pt states she was refusing the afternoon dose at [facility] and only took the morning and bedtime dose.
[2024-12-21 14:42] LABS: Reflex Lactate? Lactic Acid Added
[2024-12-21] MEDS: Albuterol/Iprat 2.5/0.5MG 3 ML AMPUL.NEB INHALE ×2 (15:19→19:50)
[2024-12-21 15:38] LABS: ~Lactic Acid-LAB USE ONLY 2.4 mmol/L (0.5-2.0)
[2024-12-21] MEDS: Lactated Ringers 500 ML 50 ML IV (15:42)
[2024-12-21] MEDS: oxyCODONE HCl Immed Release 5 MG TABLET PO ×2 (15:42→21:44)
[2024-12-21 17:15] LABS: Reflex Lactate? 2 Y
[2024-12-21 17:55] LABS: ~Lactic Acid-LAB USE ONLY 5.5 mmol/L (0.5-2.0)
[2024-12-21 18:32] LABS: Venous Blood Gas Refer to POC result
[2024-12-21 18:33] LABS: VBG HCO3 25 mmol/L (22-26); VBG O2 % Saturation 88.0 %
[2024-12-21] MEDS: Lactated Ringers 500 ML 999 ML IV (18:38)
[2024-12-21] MEDS: iohexoL 350 MG/ML 100 ML INFUS..BTL IV (20:00)
[2024-12-21] MEDS: Calcium + Vitamin D 250 MG TABLET PO (21:20)
[2024-12-21] MEDS: Aspirin Enteric Coated 81 MG TABLET.DR PO (21:20)
[2024-12-21] MEDS: guaiFENesin DM 600/30 1 TAB TAB.ER.12H PO (21:20)
--- NOTE | 2024-12-21 21:30 | PM.EVENT ---
Event Note Date of Service: 12/21/24 Event Note: 9:33 PM - Abdominal pelvis CT scan with IV contrast showed finding consistent with mild SBO and no obstructive left renal calculi. Chest CTA showed no central large proximal PE, ill-defined patchy and nodular consolidative in the right mid lobe to a lesser extent lingula. We will continue to monitor lactic acidosis, empiric IV antibiotic therapy with cefepime and vancomycin, surgery consult and gentle IV fluids. Time Spent With Patient Time: Total time managing care of this patient today ____ minutes.
[2024-12-22] VITALS (14 sets, daily range): BP systolic 88–174; BP diastolic 45–82; PULSE 79–96; RESP 16–22; TEMP 36.4–36.7; O2SAT 93–100
[2024-12-22] MEDS: Lactated Ringers 1,000 ML 80 ML IVCONT (00:03)
[2024-12-22] MEDS: 0.9 % Sodium Chloride Flush 3 ML SYRINGE IVFLUSH ×4 (00:04→22:02)
[2024-12-22] MEDS: cefEPime HCl/D5W 2 GM/50 ML PIGGYBACK IV ×3 (00:04→16:55)
[2024-12-22] MEDS: Albuterol/Iprat 2.5/0.5MG 3 ML AMPUL.NEB INHALE ×4 (05:49→20:26)
[2024-12-22 06:57] LABS: Hematocrit 34.6 % (37.0-47.0); Hemoglobin 11.5 g/dl (12.0-16.0); Imm Gran Abs Auto 0.16 X10*3/uL (0.00-0.03); Imm Gran Pct Auto 1.0 % (0.0-0.4); Lymphocytes Absolute Auto 0.7 X10*3/uL (1.2-4.9); MANUAL DIFF FLAG SCAN; Mean Corpuscular HGB Conc 33.2 g/dl (31.0-35.0); Mean Corpuscular Hemoglobin 32.1 pg (27.0-33.0); Mean Corpuscular Volume 96.6 fL (80.0-98.0); NRBC Abs Auto 0.000 X10*3/uL (0.0-0.012); NRBC Pct Auto 0.0 /100WBC (0.0-0.2); Platelet Count 347 X10*3/uL (160-400); Red Blood Count 3.58 X10*6/uL (4.20-5.50); SCAN SMEAR FLAG 1; White Blood Count 15.9 X10*3/uL (4.8-10.8)
[2024-12-22 07:09] LABS: Anion Gap 12 (12-20); Blood Urea Nitrogen 11 mg/dL (9-16); Calcium 9.1 mg/dL (8.4-10.2); Carbon Dioxide 27 mmol/L (22-29); Chloride 106 mmol/L (96-108); Creatinine Clr Calc Pharmacy 107.4; Estimated Glomerular Filt Rate > 60; Magnesium 2.2 mg/dL (1.6-2.6); Potassium 4.3 mmol/L (3.3-5.1); Sodium 141 mmol/L (135-145)
--- NOTE | 2024-12-22 07:58 | HO.PM.IMPN ---
Subjective Subjective Date of Service: 12/22/24 Interval History: Patient is at baseline O2 requirements I have advised the patient that we would not be treating with narcotics and we would be treating with Tylenol and NSAIDs SBO ruled out by surgery Review of Systems Review of Systems: Yes all other systems are reviewed and are negative Physical Exam Vital Signs: Vital Signs: Last Vital Signs Temp 97.8 F 12/22/24 07:53 Pulse 81 12/22/24 07:53 Resp 22 H 12/22/24 07:53 BP 164/77 H 12/22/24 07:53 Pulse Ox 97 12/22/24 07:53 O2 Del Method Nasal Cannula 12/22/24 07:53 O2 Flow Rate 2.5 12/22/24 07:53 Oxygen Flow Rate 2 12/21/24 06:26 BMI result Body Mass Index 39.7 Const: General: comfortable, no acute distress and alert Orientation/consciousness: patient oriented x3 Resp: Effort & Inspection: normal respiratory effort, able to speak in complete sentences and not labored GI: Other: markedly corpulent abdomen Inspection: Yes distended (mild ) and No scar Palpation (GI): Soft to palpation, Tenderness to palpation present (GI) (mild upper abdominal tenderness ) with no rebound tenderness, no guarding and not rigid Skin: General skin exam: no rashes or lesions noted Neuro: General: patient oriented x3 Objective Data Active Medications Acetaminophen (Acetaminophen 325 Mg Tablet) 975 mg PO Q6H PRN PRN Reason: Pain, Mild 1-3,fever,headache Acetaminophen/Butalbital/Caffeine (Butalb/Acetamin/Caff 50/325/40 Tablet) 1 tab PO DAILY MRX1 PRN PRN Reason: Migraine Headache Albuterol Sulfate (Albuterol Sulfate (0.083%) 2.5 Mg/3 Ml Vial.Neb) 2.5 mg INHALE Q2H PRN PRN Reason: Shortness of Breath/Wheezing Albuterol/Ipratropium (Albuterol/Iprat 2.5/0.5mg 3 Ml Ampul.Neb) 3 ml INHALE RQ4H WHILE AWAKE [facility] Last Admin: 12/22/24 05:49 Dose: 3 ml Documented By: JUAN C Aripiprazole (Aripiprazole 5 Mg Tablet) 5 mg PO DAILY [facility] Aspirin (Aspirin Enteric Coated 81 Mg Tablet.) 81 mg PO DAILY@1999 [facility] Last Admin: 12/21/24 21:20 Dose: 81 mg Documented By: RICK Atorvastatin Calcium (Atorvastatin Calcium 80 Mg Tablet) 80 mg PO DAILY@1999 [facility] Last Admin: 12/21/24 21:20 Dose: 80 mg Documented By: RICK Baclofen (Baclofen 20 Mg Tablet) 20 mg PO TID@499, [facility] Last Admin: 12/22/24 05:26 Dose: 20 mg Documented By: RICK Benzonatate (Benzonatate 100 Mg Capsule) 100 mg PO TID PRN PRN Reason: Cough Budesonide (Budesonide 0.5 Mg/2 Ml Ampul.Neb) 0.5 mg INHALE BID [facility] Last Admin: 12/21/24 19:50 Dose: 0.5 mg Documented By: CASSIDY Calcium Carbonate (Calcium Carbonate 750 Mg Tab.Chew) 750 mg PO Q4H PRN PRN Reason: Heartburn Calcium Carbonate/Cholecalciferol (Calcium + Vitamin D 250 Mg Tablet) 250 mg PO DAILY@1999 [facility] Last Admin: 12/21/24 21:20 Dose: 250 mg Documented By: RICK Duloxetine HCl (Duloxetine Hcl 60 Mg Capsule.) 60 mg PO BID@ [facility] Last Admin: 12/22/24 05:26 Dose: 60 mg Documented By: RICK Enoxaparin Sodium (Enoxaparin Sodium 40 Mg/0.4 Ml Syringe) 40 mg SUBCUT Q24H [facility] Gabapentin (Gabapentin 400 Mg Capsule) 1,200 mg PO TID@499, [facility] Last Admin: 12/22/24 05:26 Dose: 1,200 mg Documented By: RICK Guaifenesin/Dextromethorphan (Guaifenesin Dm 200/20/10 Ml 10 Ml Syrup) 10 ml PO Q6H PRN PRN Reason: Cough Guaifenesin/Dextromethorphan (Guaifenesin Dm 600/30 1 Tab Tab.Er.12h) 1 tab PO BID [facility] Last Admin: 12/21/24 21:20 Dose: 1 tab Documented By: RICK Cefepime HCl (Maxipime) 2 gm in 50 mls @ 100 mls/hr IV Q8H [facility] Last Infusion: 12/22/24 00:44 Dose: Infused Documented By: RICK Vancomycin HCl 1,000 mg/ (Sodium Chloride) 270 mls @ 270 mls/hr IV Q12H [facility] Last Infusion: 12/22/24 02:35 Dose: Infused Documented By: RICK Lactated Ringer's (Lr) 1,000 mls @ 80 mls/hr IVCONT .[id number] [facility] Stop: 12/22/24 09:44 Last Admin: 12/22/24 00:03 Dose: 80 mls/hr Documented By: RICK Lorazepam (Lorazepam 1 Mg Tablet) 1 mg PO DAILY PRN PRN Reason: MODERATE Anxiety Last Admin: 12/21/24 19:50 Dose: 1 mg Documented By: RICK Magnesium Hydroxide (Milk Of Magnesia 30 Ml Oral.Susp) 30 ml PO DAILY PRN PRN Reason: Constipation Melatonin (Melatonin 3 Mg Tablet) 6 mg PO BEDTIME PRN PRN Reason: Insomnia Methylprednisolone Sodium Succinate (Methylprednisolone Sod Succ 40 Mg Vial) 40 mg IVPUSH Q12H [facility] Last Admin: 12/22/24 05:26 Dose: 40 mg Documented By: RICK Omeprazole (Omeprazole 20 Mg Capsule.) 20 mg PO DAILY@0630 [facility] Last Admin: 12/22/24 05:26 Dose: 20 mg Documented By: RICK Oxcarbazepine (Oxcarbazepine 300 Mg Tablet) 300 mg PO BID@0600,2100 [facility] Last Admin: 12/22/24 06:21 Dose: 300 mg Documented By: RICK Oxycodone HCl (Oxycodone Hcl Immed Release 5 Mg Tablet) 5 mg PO BID PRN PRN Reason: back pain Last Admin: 12/21/24 21:44 Dose: 5 mg Documented By: RICK Pharmacy Consult (Consult Rx Vancomycin Dosing) 1 each MISCELLANE DAILY PRN PRN Reason: Consult order Prochlorperazine Edisylate (Prochlorperazine Edisylate 10 Mg/2 Ml Vial) 5 mg IVPUSH Q6H PRN PRN Reason: Nausea and Vomiting Roflumilast (Roflumilast 500 Mcg Tablet) 500 mcg PO DAILY [facility] Senna (Sennosides 8.6 Mg Tablet) 8.6 mg PO DAILY PRN PRN Reason: Constipation Sodium Chloride (0.9 % Sodium Chloride Flush 3 Ml Syringe) 3 ml IVFLUSH QSHIFT [facility] Last Admin: 12/22/24 00:04 Dose: 3 ml Documented By: RICK Labs 12/22/24 06:06 12/22/24 06:06 Labs: Laboratory Results - last 24 hr 12/21/24 12/21/24 12/21/24 08:06 08:16 08:29 MCV 97.9 MCH 32.4 MCHC 33.1 RDW 14.1 Plt Count 343 MPV 8.8 L Immature Gran % (Auto) 1.0 H Neut % (Auto) 78.2 H Lymph % (Auto) 10.5 L Mcleod % (Auto) 8.4 Eos % (Auto) 1.7 Baso % (Auto) 0.2 Lymph # (Auto) 1.6 Mcleod # (Auto) 1.3 H Eos # (Auto) 0.3 Baso # (Auto) 0.0 Abs Immat Gran (auto) 0.15 H Absolute Neuts (auto) 11.8 H Absolute Nucleated RBC 0.000 Nucleated RBC % (auto) 0.0 Smear Tech's Comments VBG pH 7.36 VBG pCO2 63 VBG pO2 48 VBG HCO3 36 H VBG O2 Saturation 75.0 VBG Base Excess 8.9 Anion Gap 11 L Estim Creat Clear Calc 72.4 Estimated GFR > 60 Random Glucose 120 H Lactic Acid 1.7 Lactic Acid F/U @ 2Hr Lactic Acid F/U @ 4Hr Calcium 9.5 D Magnesium 2.1 Total Bilirubin 0.2 Direct Bilirubin < 0.2 AST 18 ALT 17 Alkaline Phosphatase 53 C-Reactive Protein 1.32 H B-Natriuretic Peptide 24 Total Protein 6.4 L Albumin 4.0 Lipase 13 Procalcitonin 0.05 Random Cortisol Urine Color Dark Yellow Urine Appearance Clear Urine pH 5.0 Ur Specific Carnegie >= 1.030 H Urine Protein Trace Urine Glucose (UA) Negative Urine Ketones Trace Urine Blood Negative Urine Nitrite Negative Ur Leukocyte Esterase Negative Influenza Type A (PCR) NEGATIVE Influenza Type B (PCR) NEGATIVE RSV RNA Qual (PCR) NEGATIVE SARS-CoV-2 RNA (RT-PCR) NEGATIVE 12/21/24 12/21/24 12/21/24 12:34 13:19 15:10 MCV MCH MCHC RDW Plt Count MPV Immature Gran % (Auto) Neut % (Auto) Lymph % (Auto) Mcleod % (Auto) Eos % (Auto) Baso % (Auto) Lymph # (Auto) Mcleod # (Auto) Eos # (Auto) Baso # (Auto) Abs Immat Gran (auto) Absolute Neuts (auto) Absolute Nucleated RBC Nucleated RBC % (auto) Smear Tech's Comments VBG pH VBG pCO2 VBG pO2 VBG HCO3 VBG O2 Saturation VBG Base Excess Anion Gap Estim Creat Clear Calc Estimated GFR Random Glucose Lactic Acid 2.6 H* Lactic Acid F/U @ 2Hr 2.4 H* Lactic Acid F/U @ 4Hr Calcium Magnesium Total Bilirubin Direct Bilirubin AST ALT Alkaline Phosphatase C-Reactive Protein B-Natriuretic Peptide Total Protein Albumin Lipase Procalcitonin Random Cortisol 3.3 Urine Color Urine Appearance Urine pH Ur Specific Carnegie Urine Protein Urine Glucose (UA) Urine Ketones Urine Blood Urine Nitrite Ur Leukocyte Esterase Influenza Type A (PCR) Influenza Type B (PCR) RSV RNA Qual (PCR) SARS-CoV-2 RNA (RT-PCR) 12/21/24 12/21/24 12/22/24 17:27 18:29 06:06 MCV 96.6 MCH 32.1 MCHC 33.2 RDW 13.9 Plt Count 347 MPV 9.1 L Immature Gran % (Auto) 1.0 H Neut % (Auto) 91.0 H Lymph % (Auto) 4.6 L Mcleod % (Auto) 3.3 Eos % (Auto) 0.0 Baso % (Auto) 0.1 Lymph # (Auto) 0.7 L Mcleod # (Auto) 0.5 Eos # (Auto) 0.0 Baso # (Auto) 0.0 Abs Immat Gran (auto) 0.16 H Absolute Neuts (auto) 14.5 H Absolute Nucleated RBC 0.000 Nucleated RBC % (auto) 0.0 Smear Tech's Comments VERIFIED VBG pH 7.34 VBG pCO2 46 VBG pO2 62 VBG HCO3 25 VBG O2 Saturation 88.0 VBG Base Excess -0.1 Anion Gap 12 Estim Creat Clear Calc 107.4 Estimated GFR > 60 Random Glucose 132 H Lactic Acid Lactic Acid F/U @ 2Hr Lactic Acid F/U @ 4Hr 5.5 H* Calcium 9.1 Magnesium 2.2 Total Bilirubin Direct Bilirubin AST ALT Alkaline Phosphatase C-Reactive Protein B-Natriuretic Peptide Total Protein Albumin Lipase Procalcitonin Random Cortisol Urine Color Urine Appearance Urine pH Ur Specific Carnegie Urine Protein Urine Glucose (UA) Urine Ketones Urine Blood Urine Nitrite Ur Leukocyte Esterase Influenza Type A (PCR) Influenza Type B (PCR) RSV RNA Qual (PCR) SARS-CoV-2 RNA (RT-PCR) Assessment and Plan (1) Acute on chronic respiratory failure with hypoxia and hypercapnia: Status: Acute Plan Zulma Alves is a 59 y/o woman admitted with: Acute on chronic hypoxic and hypercapnic respiratory failure secondary to acute exacerbation of COPD in the setting of underlying COPD. Likely a progression of her chronic COPD in the setting of anxiety and medication noncompliance and, continued smoking Patient is very anxious We will continue monitoring and continue her prednisone Patient likely does not have any objective evidence of pneumonia, however given her baseline medical conditions, we will continue antibiotic therapy and deescalate based on clinical condition-likely okay to transition to p.o. meds tomorrow Telemetry. Pulse oximetry. Supplemental O2 to keep O2 sats > 90%. Continue bronchodilator therapy, IV steroids and empiric IV antibiotic therapy with doxycycline. Continue roflumilast. CPAP p.r.n. nocturnally Leukocytosis. Likely secondary to steroids and dehydration (high specific gravity, normal Hgb . Normal lactic acid, no fever or tachycardia. Blood cultures were obtained -will follow results. Continue to monitor WBC count. Hyperlipidemia. Continue statin. Essential hypertension. Hold prazosin for now due to soft BP. Furosemide and losartan was discontinued during last hospitalization. History of trigeminal neuralgia. Continue gabapentin, baclofen, topical lidocaine oxcarbazepine. Chronic back pain. Continue oxycodone. Advised the patient that oxycodone and narcotics like Dilaudid will further worsen her SOB/PRECIADO and would benefit from nonnarcotic pain management-Tylenol plus NSAID plus PPI Moderate aortic stenosis. No evidence of acute CHF. Patient denied chest pain or syncopal episode. Mood disorder. Continue lorazepam as needed, duloxetine and aripiprazole. History of CVA. Continue aspirin and statin. Obesity, class II. BMI 39.7. .This note is constructed using voice recognition software. While every effort has been made to ensure accuracy, card services specialist errors may have been included. Quality Stroke Does the patient have a stroke diagnosis?: No VTE Prior VTE?: No VTE Risk Level:: Medical - moderate - high VTE Device Contraindication: Treatment Not Indicated VTE Drug Contraindication: N/A - Med Ordered
--- NOTE | 2024-12-22 08:08 | PM.CNGS ---
History of Present Illness Consult details Consult date: 12/22/24 <MIREYA Antony Last Filed: 12/22/24 08:28> Requesting physician: Desiree Peoples <MIREYA Antony Last Filed: 12/22/24 08:28> Narrative: 59 year old female with past medical history significant for COPD on home oxygen on 1-3L/min, hyperlipidemia, CVA, HTN, obesity, moderate , chronic back pain on oxycodone who presented to the ED complaining of worsening shortness on breath, productive cough with green sputum and subjective fevers. She had a recent hospitalization with similar symptoms and was discharged earlier this month. She was found to be hypotensive in the ED. She had a leukocytosis and lactic acidosis. CTA was performed which showed no PE but an ill defined patchy and nodular consolidations in the right middle lobe. She was admitted to the medical service for acute on chronic hypoxic and hypercapnic respiratory failure. CT scan abd pelvis was performed because she complained of nausea which was read as some dilatation of small bowel loops with air-fluid levels, distended stomach. There was concern for possible SBO and therefore general surgery was consulted. She reports feeling well this morning. She denies current nausea, vomiting, diarrhea, abdominal pain. She reports frequent nausea and bloating/early fullness after meals. She reports baseline constipation with normal BM every 2 weeks. She is not on a bowel regimen but normally takes milk of magnesia if needed. <MIREYA Antony Last Filed: 12/22/24 08:28> Review of Systems Constitutional: Constitutional: Denies chills and Reports fever(s) (subjective) <MIREYA Antony Last Filed: 12/22/24 08:28> ENT: Denies dizziness <MIREYA Antony Last Filed: 12/22/24 08:28> Cardiovascular: Cardiovascular: Denies chest pain <MIREYA Antony Last Filed: 12/22/24 08:28> Respiratory: Respiratory: Reports as per HPI <MIREYA Antony Last Filed: 12/22/24 08:28> Gastrointestinal: Gastrointestinal: Reports bloating, Denies change in bowel habits, Reports constipation, Reports early satiety, Denies diarrhea, Reports nausea and Denies vomiting <MIREYA Antony Last Filed: 12/22/24 08:28> Integumentary/Breasts: Skin/Breast: Denies rash <MIREYA Antony Last Filed: 12/22/24 08:28> Neurologic: Denies dizziness <MIREYA Antony Last Filed: 12/22/24 08:28> [facility] Past Medical History Medical History: Medical History Panic disorder Hypertension Chronic hypercapnic respiratory failure Aortic stenosis Obesity (BMI 30-39.9) Asthma Acute exacerbation of chronic obstructive pulmonary disease Chronic lung disease Hypogammaglobulinemia Smoker JUANITO (obstructive sleep apnea) Allergies Elevated troponin COPD (chronic obstructive pulmonary disease) Trigeminal neuralgia Pulmonary nodules Mixed hyperlipidemia Peripheral neuropathy Tobacco use disorder Mood disorder <Raya Naidu PA-C Last Filed: 12/22/24 08:28> Surgical History Surgical History: Surgical History History of esophagogastroduodenoscopy (EGD) History of colonoscopy History of lumbar discectomy History of tubal ligation History of excision of mass History of shoulder surgery <MIREYA Antony Last Filed: 12/22/24 08:28> Social History Social History: Social History Household Members: Family Household Members Other:: dog Housing: House Do you presently have visiting nurse or other home services: Yes Alcohol intake: never Comment: room assignment pending Patient Tobacco Use Status: Former Tobacco user Tobacco use type: Cigarette Cigarette Packs Per Day: 4 Cigarettes Per Day: 80.0 Years Smoked: 40 e-Cigarette/Vaping Use: Never Used Second Hand Smoke Exposure: No Substance Use Type: Marijuana Advance Directives Date on File: 03/09/23 service: No <MIREYA Antony Last Filed: 12/22/24 08:28> Meds Allergies/Adverse reactions: Allergies Allergy/AdvReac Type Severity Reaction Status Date / Time Iodinated Contrast Media (IV Allergy Intermediate HIVES Verified 12/21/24 06:30 CONTRAST) latex (LATEX) Allergy Unknown RASH Verified 12/21/24 06:30 adhesive tape Allergy Rash Verified 12/21/24 06:30 morphine (MORPHINE) AdvReac Unknown VOMITING Verified 12/21/24 06:30 <Raya Naidu PA-C - Last Filed: 12/22/24 08:28> Active Medications: Current Medications Acetaminophen (Acetaminophen 325 Mg Tablet) 975 mg PO Q6H PRN PRN Reason: Pain, Mild 1-3,fever,headache Acetaminophen/Butalbital/Caffeine (Butalb/Acetamin/Caff 50/325/40 Tablet) 1 tab PO DAILY MRX1 PRN PRN Reason: Migraine Headache Albuterol Sulfate (Albuterol Sulfate (0.083%) 2.5 Mg/3 Ml Vial.Neb) 2.5 mg INHALE Q2H PRN PRN Reason: Shortness of Breath/Wheezing Albuterol/Ipratropium (Albuterol/Iprat 2.5/0.5mg 3 Ml Ampul.Neb) 3 ml INHALE RQ4H WHILE AWAKE [facility] Last Admin: 12/22/24 05:49 Dose: 3 ml Aripiprazole (Aripiprazole 5 Mg Tablet) 5 mg PO DAILY [facility] Aspirin (Aspirin Enteric Coated 81 Mg Tablet.Dr) 81 mg PO DAILY@1999 [facility] Last Admin: 12/21/24 21:20 Dose: 81 mg Atorvastatin Calcium (Atorvastatin Calcium 80 Mg Tablet) 80 mg PO DAILY@1999 [facility] Last Admin: 12/21/24 21:20 Dose: 80 mg Baclofen (Baclofen 20 Mg Tablet) 20 mg PO TID@0500,1199,1999 [facility] Last Admin: 12/22/24 05:26 Dose: 20 mg Benzonatate (Benzonatate 100 Mg Capsule) 100 mg PO TID PRN PRN Reason: Cough Budesonide (Budesonide 0.5 Mg/2 Ml Ampul.Neb) 0.5 mg INHALE BID [facility] Last Admin: 12/21/24 19:50 Dose: 0.5 mg Calcium Carbonate (Calcium Carbonate 750 Mg Tab.Chew) 750 mg PO Q4H PRN PRN Reason: Heartburn Calcium Carbonate/Cholecalciferol (Calcium + Vitamin D 250 Mg Tablet) 250 mg PO DAILY@1999 [facility] Last Admin: 12/21/24 21:20 Dose: 250 mg Duloxetine HCl (Duloxetine Hcl 60 Mg Capsule.) 60 mg PO BID@ [facility] Last Admin: 12/22/24 05:26 Dose: 60 mg Enoxaparin Sodium (Enoxaparin Sodium 40 Mg/0.4 Ml Syringe) 40 mg SUBCUT Q24H [facility] Gabapentin (Gabapentin 400 Mg Capsule) 1,200 mg PO TID@499,1199,1999 [facility] Last Admin: 12/22/24 05:26 Dose: 1,200 mg Guaifenesin/Dextromethorphan (Guaifenesin Dm 200/20/10 Ml 10 Ml Syrup) 10 ml PO Q6H PRN PRN Reason: Cough Guaifenesin/Dextromethorphan (Guaifenesin Dm 600/30 1 Tab Tab.Er.12h) 1 tab PO BID [facility] Last Admin: 12/21/24 21:20 Dose: 1 tab Cefepime HCl (Maxipime) 2 gm in 50 mls @ 100 mls/hr IV Q8H [facility] Last Infusion: 12/22/24 00:44 Dose: Infused Vancomycin HCl 1,000 mg/ (Sodium Chloride) 270 mls @ 270 mls/hr IV Q12H [facility] Last Infusion: 12/22/24 02:35 Dose: Infused Lactated Ringer's (Lr) 1,000 mls @ 80 mls/hr IVCONT .[id number] [facility] Stop: 12/22/24 09:44 Last Admin: 12/22/24 00:03 Dose: 80 mls/hr Lorazepam (Lorazepam 1 Mg Tablet) 1 mg PO DAILY PRN PRN Reason: MODERATE Anxiety Last Admin: 12/21/24 19:50 Dose: 1 mg Magnesium Hydroxide (Milk Of Magnesia 30 Ml Oral.Susp) 30 ml PO DAILY PRN PRN Reason: Constipation Melatonin (Melatonin 3 Mg Tablet) 6 mg PO BEDTIME PRN PRN Reason: Insomnia Methylprednisolone Sodium Succinate (Methylprednisolone Sod Succ 40 Mg Vial) 40 mg IVPUSH Q12H [facility] Last Admin: 12/22/24 05:26 Dose: 40 mg Omeprazole (Omeprazole 20 Mg Capsule.) 20 mg PO DAILY@0630 [facility] Last Admin: 12/22/24 05:26 Dose: 20 mg Oxcarbazepine (Oxcarbazepine 300 Mg Tablet) 300 mg PO BID@0600,2100 [facility] Last Admin: 12/22/24 06:21 Dose: 300 mg Oxycodone HCl (Oxycodone Hcl Immed Release 5 Mg Tablet) 5 mg PO BID PRN PRN Reason: back pain Last Admin: 12/21/24 21:44 Dose: 5 mg Pharmacy Consult (Consult Rx Vancomycin Dosing) 1 each MISCELLANE DAILY PRN PRN Reason: Consult order Prochlorperazine Edisylate (Prochlorperazine Edisylate 10 Mg/2 Ml Vial) 5 mg IVPUSH Q6H PRN PRN Reason: Nausea and Vomiting Roflumilast (Roflumilast 500 Mcg Tablet) 500 mcg PO DAILY [facility] Senna (Sennosides 8.6 Mg Tablet) 8.6 mg PO DAILY PRN PRN Reason: Constipation Sodium Chloride (0.9 % Sodium Chloride Flush 3 Ml Syringe) 3 ml IVFLUSH QSHIFT [facility] Last Admin: 12/22/24 00:04 Dose: 3 ml <Raya Naidu PA-C - Last Filed: 12/22/24 08:28> Home medications: Home Medications ?Medication ?Instructions ?Recorded ?Confirmed ?Last Taken ?Type atorvastatin 80 mg tablet 80 mg PO DAILY@199903/04/23 12/21/24 12/21/24 History efipznkyla-fxdcpuzjbaqtn-niefbmnd 1 tab PO DAILY MRX1 PRN Migraine 03/04/23 12/21/24 05/21/24 20:00 History 50 mg-325 mg-40 mg tablet Headache duloxetine 60 mg capsule,delayed 60 mg PO BID@0500,199903/04/23 12/21/24 12/21/24 History release gabapentin 300 mg capsule 1,200 mg PO TID@0500,1200,199903/04/23 12/21/24 12/21/24 History hyoscyamine sulfate 0.125 mg tablet 0.25 mg PO Q6H PRN Abdominal 03/04/23 12/21/24 05/21/24 20:00 History Discomfort Oxygen Home Use 04/16/23 10/29/24 10/28/24 History prazosin 2 mg capsule 2 mg PO DAILY@199904/16/23 12/21/24 12/21/24 History albuterol sulfate 90 mcg/actuation 2 puff inhalation Q4H PRN 01/31/24 12/21/24 05/21/24 20:00 History aerosol inhaler Shortness Of Breath Or Wheezing aspirin 81 mg tablet,delayed 81 mg PO DAILY@199905/22/24 12/21/24 12/21/24 History release calcium 600 mg (as 1 tab PO DAILY@199906/20/24 12/21/24 12/21/24 History carbonate)-vitamin D3 5 mcg (200 unit) tablet verapamil 120 mg tablet 120 mg PO BID@050,199907/02/24 12/21/24 12/21/24 History baclofen 20 mg tablet 20 mg PO TID@0500,1199,199910/29/24 12/21/24 12/21/24 History aripiprazole 5 mg tablet (Abilify) 5 mg PO DAILY 12/01/24 12/21/24 12/21/24 History acetaminophen 325 mg tablet 650 mg PO Q6H PRN Fever/Pain 12/21/24 12/21/24 Unknown History budesonide 0.5 mg/2 mL suspension 0.5 mg inhalation BID 12/21/24 12/21/24 Unknown History for nebulization (Pulmicort) oxcarbazepine 300 mg tablet 300 mg PO BID 12/21/24 12/21/24 12/21/24 History sennosides 8.6 mg tablet (senna) 8.6 mg PO DAILY PRN Constipation 12/21/24 12/21/24 Unknown History <Raya Naidu PA-C - Last Filed: 12/22/24 08:28> Physical Exam Vital Signs: Vital Signs: Last Vital Signs Temp 97.8 F 12/22/24 07:53 Pulse 81 12/22/24 07:53 Resp 22 H 12/22/24 07:53 BP 164/77 H 12/22/24 07:53 Pulse Ox 97 12/22/24 07:53 O2 Del Method Nasal Cannula 12/22/24 07:53 O2 Flow Rate 2.5 12/22/24 07:53 Oxygen Flow Rate 2 12/21/24 06:26 BMI result Body Mass Index 39.7 <Raya Naidu PA-C - Last Filed: 12/22/24 08:28> Const: General: comfortable, no acute distress and alert <Raya Naidu PA-C Ramon Last Filed: 12/22/24 08:28> Orientation/consciousness: patient oriented x3 <Raya Naidu PA-C Ramon Last Filed: 12/22/24 08:28> Resp: Effort & Inspection: normal respiratory effort, able to speak in complete sentences and not labored <Raya Naidu PA-C Ramon Last Filed: 12/22/24 08:28> GI: Other: markedly corpulent abdomen <Raya LONNY NaiduBebe Navarro Last Filed: 12/22/24 08:28> Inspection: Yes distended (mild ) and No scar <Raya Naidu PA-C Ramon Last Filed: 12/22/24 08:28> Palpation (GI): Soft to palpation, Tenderness to palpation present (GI) (mild upper abdominal tenderness ) with no rebound tenderness, no guarding and not rigid <LONNY AntonyBebe Navarro Last Filed: 12/22/24 08:28> Skin: General skin exam: no rashes or lesions noted <LONNY AntonyBebe Navarro Last Filed: 12/22/24 08:28> Neuro: General: patient oriented x3 <LONNY AntonyBebe Navarro Last Filed: 12/22/24 08:28> Results Labs Result diagrams: 12/22/24 06:06 12/22/24 06:06 <Raya Naidu PA-C Ramon Last Filed: 12/22/24 08:28> Labs: Abnormal lab results 12/21/24 12/21/24 12/21/24 Range/Units 08:06 08:16 08:29 WBC 15.1 H (4.8-10.8) X10*3/uL RBC 3.77 L (4.20-5.50) X10*6/uL Hgb (12.0-16.0) g/dl Hct 36.9 L (37.0-47.0) % MPV 8.8 L (9.4-12.3) fL Immature Gran % (Auto) 1.0 H (0.0-0.4) % Neut % (Auto) 78.2 H (45-73) % Lymph % (Auto) 10.5 L (20-40) % Lymph # (Auto) (1.2-4.9) X10*3/uL Ness # (Auto) 1.3 H (0.1-1.2) X10*3/uL Abs Immat Gran (auto) 0.15 H (0.00-0.03) X10*3/uL Absolute Neuts (auto) 11.8 H (2.0-8.3) x10*3/uL VBG HCO3 36 H (22-26) mmol/L Carbon Dioxide 30 H (22-29) mmol/L Anion Gap 11 L (12-20) BUN 17 H (9-16) mg/dL Random Glucose 120 H (60-115) mg/dL Lactic Acid (0.5-2.0) mmol/L Lactic Acid F/U @ 2Hr (0.5-2.0) mmol/L Lactic Acid F/U @ 4Hr (0.5-2.0) mmol/L C-Reactive Protein 1.32 H (< or = 0.50) mg/dL Total Protein 6.4 L (6.5-8.0) g/dL Ur Specific [place] >= 1.030 H (1.005-1.025) 12/21/24 12/21/24 12/21/24 Range/Units 12:34 15:10 17:27 WBC (4.8-10.8) X10*3/uL RBC (4.20-5.50) X10*6/uL Hgb (12.0-16.0) g/dl Hct (37.0-47.0) % MPV (9.4-12.3) fL Immature Gran % (Auto) (0.0-0.4) % Neut % (Auto) (45-73) % Lymph % (Auto) (20-40) % Lymph # (Auto) (1.2-4.9) X10*3/uL Ness # (Auto) (0.1-1.2) X10*3/uL Abs Immat Gran (auto) (0.00-0.03) X10*3/uL Absolute Neuts (auto) (2.0-8.3) x10*3/uL VBG HCO3 (22-26) mmol/L Carbon Dioxide (22-29) mmol/L Anion Gap (12-20) BUN (9-16) mg/dL Random Glucose (60-115) mg/dL Lactic Acid 2.6 H* (0.5-2.0) mmol/L Lactic Acid F/U @ 2Hr 2.4 H* (0.5-2.0) mmol/L Lactic Acid F/U @ 4Hr 5.5 H* (0.5-2.0) mmol/L C-Reactive Protein (< or = 0.50) mg/dL Total Protein (6.5-8.0) g/dL Ur Specific [place] (1.005-1.025) 12/22/24 Range/Units 06:06 WBC 15.9 H (4.8-10.8) X10*3/uL RBC 3.58 L (4.20-5.50) X10*6/uL Hgb 11.5 L (12.0-16.0) g/dl Hct 34.6 L (37.0-47.0) % MPV 9.1 L (9.4-12.3) fL Immature Gran % (Auto) 1.0 H (0.0-0.4) % Neut % (Auto) 91.0 H (45-73) % Lymph % (Auto) 4.6 L (20-40) % Lymph # (Auto) 0.7 L (1.2-4.9) X10*3/uL Ness # (Auto) (0.1-1.2) X10*3/uL Abs Immat Gran (auto) 0.16 H (0.00-0.03) X10*3/uL Absolute Neuts (auto) 14.5 H (2.0-8.3) x10*3/uL VBG HCO3 (22-26) mmol/L Carbon Dioxide (22-29) mmol/L Anion Gap (12-20) BUN (9-16) mg/dL Random Glucose 132 H (60-115) mg/dL Lactic Acid (0.5-2.0) mmol/L Lactic Acid F/U @ 2Hr (0.5-2.0) mmol/L Lactic Acid F/U @ 4Hr (0.5-2.0) mmol/L C-Reactive Protein (< or = 0.50) mg/dL Total Protein (6.5-8.0) g/dL Ur Specific [place] (1.005-1.025) Short CBC 12/21/24 12/22/24 Range/Units 08:06 06:06 WBC 15.1 H 15.9 H (4.8-10.8) X10*3/uL Hgb 12.2 11.5 L (12.0-16.0) g/dl Hct 36.9 L 34.6 L (37.0-47.0) % Plt Count 343 347 (160-400) X10*3/uL BMP 12/21/24 12/22/24 08:06 06:06 Sodium 140 141 Potassium 4.0 4.3 Chloride 103 106 Carbon Dioxide 30 H 27 BUN 17 H 11 Creatinine 0.86 0.58 Calcium 9.5 D 9.1 Liver Function 12/21/24 Range/Units 08:06 Total Bilirubin 0.2 (0.0-1.0) mg/dL Direct Bilirubin < 0.2 (0.0-0.5) mg/dL AST 18 (5-31) U/L ALT 17 (0-31) U/L Alkaline Phosphatase 53 (39-117) U/L Albumin 4.0 (3.5-5.0) g/dL Urine 12/21/24 Range/Units 08:29 Urine Color Dark Yellow Urine Appearance Clear Urine pH 5.0 (5.0-9.0) Ur Specific [place] >= 1.030 H (1.005-1.025) Urine Protein Trace (Neg-Trace) mg/dL Urine Glucose (UA) Negative (Negative) mg/dL All other labs normal. <Raya Naidu PA-C - Last Filed: 12/22/24 08:28> Imaging Abdomen CT scan report/results: report reviewed and image reviewed <Raya Naidu PA-C - Last Filed: 12/22/24 08:28> Assessment and Plan (1) Constipation: Status: Acute <Raya Naidu PA-C - Last Filed: 12/22/24 08:28> The patient says she has a long history of bloating, early satiety he had constipation CAT scan reviewed - some dilated small bowel loops, no obvious transition Large amounts of stool in the colon Abdomen is soft and benign, no significant tenderness Okay to try clear liquids and slowly advance as tolerated We will follow while she is in the hospital Seen and examined independently <Shane Nolan MD - Last Filed: 12/22/24 10:14> 59 year old female with past medical history significant for COPD on home oxygen on 1-3L/min, hyperlipidemia, CVA, HTN, obesity, moderate , chronic back pain on oxycodone who was admitted to the hospitalist service for acute on chronic hypoxic and hypercapnic respiratory failure. She had a CT scan abd/pelvis which showed dilated small bowel loops and general surgery was consulted for possible SBO. On my review, stomach is distended and she has some mildly dilated small bowel loops, colon is FOS. Her abdomen is overall benign, soft, mild tenderness, not significantly distended. Can advance to clear liquids and then further as tolerated. She may have some element of gastroparesis given her history and distended stomach which may be causing her nausea. Her colon is also full of stool and a home bowel regimen with stool softeners and fiber was recommended for her chronic cosntipation. She is comfortable with plan. <Raya Naidu PA-C - Last Filed: 12/22/24 08:28> Procedures Date of Service Date of Service: 12/22/24 <Raya Naidu PA-C - Last Filed: 12/22/24 08:28> 12/22/24 <Shane Nolan MD - Last Filed: 12/22/24 10:14>
[2024-12-22] MEDS: guaiFENesin DM 600/30 1 TAB TAB.ER.12H PO ×2 (09:48→22:01)
--- NOTE | 2024-12-22 09:52 | MHC.CM.PN ---
Pt. lives with her , she is active with [facility]. She was in this hosp., DC on to [facility], DC from there on 12/21/24. PCP is Antione CARLISLE. HCP is her , Chris. For DME, she has a cane and 4 wheeled walker. Transport home is via family. DCP: home, [facility]. CM to follow for DC needs.
[2024-12-22] MEDS: oxyCODONE HCl Immed Release 5 MG TABLET PO (11:27)
--- NOTE | 2024-12-22 11:35 | HE.PHANOTE ---
Vancomycin Vancomycin level 10.2 after 2 doses. Increasing dose to 1250 mg q12h, for predicted auc 421. Renal function improving, may need to adjust dose on 12/23/24. Next trough 12/23/24 @1100
[2024-12-22] MEDS: Calcium + Vitamin D 250 MG TABLET PO (21:59)
[2024-12-22] MEDS: Aspirin Enteric Coated 81 MG TABLET.DR PO (22:01)
[2024-12-22] MEDS: Albumin Human 25 % 100 ML 133.33 ML IV (23:17)
[2024-12-23] VITALS (13 sets, daily range): BP systolic 117–150; BP diastolic 58–80; PULSE 68–90; RESP 16–20; TEMP 36.4–37.4; O2SAT 94–98
[2024-12-23] MEDS: cefEPime HCl/D5W 2 GM/50 ML PIGGYBACK IV ×2 (00:53→08:14)
[2024-12-23] MEDS: Albuterol Sulfate (0.083%) 2.5 MG/3 ML VIAL.NEB INHALE (02:48)
[2024-12-23] MEDS: Albuterol/Iprat 2.5/0.5MG 3 ML AMPUL.NEB INHALE ×4 (06:45→19:52)
[2024-12-23 06:55] LABS: Hematocrit 32.6 % (37.0-47.0); Hemoglobin 10.6 g/dl (12.0-16.0); Mean Corpuscular HGB Conc 32.5 g/dl (31.0-35.0); Mean Corpuscular Hemoglobin 31.8 pg (27.0-33.0); Mean Corpuscular Volume 97.9 fL (80.0-98.0); NRBC Abs Auto 0.000 X10*3/uL (0.0-0.012); NRBC Pct Auto 0.0 /100WBC (0.0-0.2); Platelet Count 322 X10*3/uL (160-400); Red Blood Count 3.33 X10*6/uL (4.20-5.50); White Blood Count 14.9 X10*3/uL (4.8-10.8)
[2024-12-23 07:00] LABS: INTERNATIONAL NORM RATIO 0.9 (0.9-1.1); Prothrombin Time 10.3 SEC (10.9-12.4)
[2024-12-23 07:10] LABS: Alanine Aminotransferase 16 U/L (0-31); Albumin Level 4.1 g/dL (3.5-5.0); Alkaline Phosphatase 41 U/L (39-117); Anion Gap 11 (12-20); Aspartate Amino Transferase 15 U/L (5-31); Blood Urea Nitrogen 9 mg/dL (9-16); Calcium 9.1 mg/dL (8.4-10.2); Carbon Dioxide 30 mmol/L (22-29); Chloride 109 mmol/L (96-108); Creatinine Clr Calc Pharmacy 102.1; Creatinine Clr Calc Pharmacy 97.2; Estimated Glomerular Filt Rate > 60; Potassium 3.8 mmol/L (3.3-5.1); Sodium 146 mmol/L (135-145); Total Protein 5.9 g/dL (6.5-8.0)
[2024-12-23] MEDS: oxyCODONE HCl Immed Release 5 MG TABLET PO ×2 (08:13→20:15)
[2024-12-23] MEDS: guaiFENesin DM 600/30 1 TAB TAB.ER.12H PO ×2 (08:14→20:09)
[2024-12-23] MEDS: 0.9 % Sodium Chloride Flush 3 ML SYRINGE IVFLUSH ×3 (08:15→20:31)
[2024-12-23 09:57] LABS: Chlamydia pneumoniae PCR Not Detected (Not Detect.); Coronavirus 229E PCR Not Detected (Not Detect.); Coronavirus HKU1 PCR Not Detected (Not Detect.); Coronavirus NL63 PCR Not Detected (Not Detect.); Coronavirus OC43 PCR Not Detected (Not Detect.); Influenza A H1 PCR Not Detected (Not Detect.); Influenza A H1-2009 PCR Not Detected (Not Detect.); Influenza A H3 PCR Not Detected (Not Detect.); RSV PCR Not Detected (Not Detect.); Rhino/Enterovirus PCR Not Detected (Not Detect.); SARS-CoV-2 PCR Not Detected (Not Detect.)
--- NOTE | 2024-12-23 10:28 | P.PNGS_ITS ---
Subjective Subjective Date of Service: 12/23/24 Interval history: Feels well this morning Has BMs Had breakfast and she says she tolerated this well Physical Exam 2 Vital Signs: Vital Signs: Last Vital Signs Temp 98.5 F 12/23/24 07:14 Pulse 68 12/23/24 08:21 Resp 20 12/23/24 08:21 BP 130/70 12/23/24 07:14 Pulse Ox 95 12/23/24 07:14 O2 Del Method Nasal Cannula 12/23/24 07:14 O2 Flow Rate 2 12/23/24 07:14 Oxygen Flow Rate 2 12/21/24 06:26 BMI result Body Mass Index 39.7 Const: General: comfortable and no acute distress Resp: Effort & Inspection: normal respiratory effort Cardio: Rate: regular rate GI: Palpation (GI): Soft to palpation, not firm, nontender and no guarding Objective Data Active Medications Acetaminophen (Acetaminophen 325 Mg Tablet) 975 mg PO Q6H [facility] Last Admin: 12/23/24 06:20 Dose: Not Given Documented By: RICK Non-Admin Reason: Patient Refused Acetaminophen/Butalbital/Caffeine (Butalb/Acetamin/Caff 50/325/40 Tablet) 1 tab PO DAILY MRX1 PRN PRN Reason: Migraine Headache Albuterol Sulfate (Albuterol Sulfate (0.083%) 2.5 Mg/3 Ml Vial.Neb) 2.5 mg INHALE Q2H PRN PRN Reason: Shortness of Breath/Wheezing Last Admin: 12/23/24 02:48 Dose: 2.5 mg Documented By: MARKO Albuterol/Ipratropium (Albuterol/Iprat 2.5/0.5mg 3 Ml Ampul.Neb) 3 ml INHALE RQ4H WHILE AWAKE [facility] Last Admin: 12/23/24 06:45 Dose: 3 ml Documented By: JUAN C Aripiprazole (Aripiprazole 5 Mg Tablet) 5 mg PO DAILY [facility] Last Admin: 12/23/24 08:14 Dose: 5 mg Documented By: JESS Aspirin (Aspirin Enteric Coated 81 Mg Tablet.) 81 mg PO DAILY@1999 [facility] Last Admin: 12/22/24 22:01 Dose: 81 mg Documented By: RICK Atorvastatin Calcium (Atorvastatin Calcium 80 Mg Tablet) 80 mg PO DAILY@1999 [facility] Last Admin: 12/22/24 22:00 Dose: 80 mg Documented By: RICK Baclofen (Baclofen 20 Mg Tablet) 20 mg PO TID@499, [facility] Last Admin: 12/23/24 06:17 Dose: 20 mg Documented By: RICK Benzonatate (Benzonatate 100 Mg Capsule) 100 mg PO TID PRN PRN Reason: Cough Budesonide (Budesonide 0.5 Mg/2 Ml Ampul.Neb) 0.5 mg INHALE BID [facility] Last Admin: 12/23/24 08:18 Dose: 0.5 mg Documented By: WILL Calcium Carbonate (Calcium Carbonate 750 Mg Tab.Chew) 750 mg PO Q4H PRN PRN Reason: Heartburn Calcium Carbonate/Cholecalciferol (Calcium + Vitamin D 250 Mg Tablet) 250 mg PO DAILY@1999 [facility] Last Admin: 12/22/24 21:59 Dose: 250 mg Documented By: RICK Duloxetine HCl (Duloxetine Hcl 60 Mg Capsule.Dr) 60 mg PO BID@ [facility] Last Admin: 12/23/24 06:17 Dose: 60 mg Documented By: RICK Enoxaparin Sodium (Enoxaparin Sodium 40 Mg/0.4 Ml Syringe) 40 mg SUBCUT Q24H [facility] Last Admin: 12/23/24 08:13 Dose: 40 mg Documented By: JESS Gabapentin (Gabapentin 400 Mg Capsule) 1,200 mg PO TID@499, [facility] Last Admin: 12/23/24 06:17 Dose: 1,200 mg Documented By: RICK Guaifenesin/Dextromethorphan (Guaifenesin Dm 200/20/10 Ml 10 Ml Syrup) 10 ml PO Q6H PRN PRN Reason: Cough Guaifenesin/Dextromethorphan (Guaifenesin Dm 600/30 1 Tab Tab.Er.12h) 1 tab PO BID [facility] Last Admin: 12/23/24 08:14 Dose: 1 tab Documented By: JESS Cefepime HCl (Maxipime) 2 gm in 50 mls @ 100 mls/hr IV Q8H [facility] Last Admin: 12/23/24 08:14 Dose: 100 mls/hr Documented By: JESS Vancomycin HCl 1,250 mg/ (Sodium Chloride) 250 mls @ 166.667 mls/hr IV Q12H [facility] Last Infusion: 12/23/24 03:19 Dose: Infused Documented By: RICK Lorazepam (Lorazepam 1 Mg Tablet) 1 mg PO DAILY PRN PRN Reason: MODERATE Anxiety Last Admin: 12/23/24 09:48 Dose: 1 mg Documented By: JESS Magnesium Hydroxide (Milk Of Magnesia 30 Ml Oral.Susp) 30 ml PO DAILY PRN PRN Reason: Constipation Melatonin (Melatonin 3 Mg Tablet) 6 mg PO BEDTIME PRN PRN Reason: Insomnia Omeprazole (Omeprazole 20 Mg Capsule.Dr) 20 mg PO DAILY@0630 [facility] Last Admin: 12/23/24 06:16 Dose: 20 mg Documented By: RICK Oxcarbazepine (Oxcarbazepine 300 Mg Tablet) 300 mg PO BID@0600,2100 [facility] Last Admin: 12/23/24 06:17 Dose: 300 mg Documented By: RICK Oxycodone HCl (Oxycodone Hcl Immed Release 5 Mg Tablet) 5 mg PO BID PRN PRN Reason: back pain Last Admin: 12/23/24 08:13 Dose: 5 mg Documented By: JESS Pharmacy Consult (Consult Rx Vancomycin Dosing) 1 each MISCELLANE DAILY PRN PRN Reason: Consult order Polyethylene Glycol (Polyethylene Glycol 3350 17 Gm Powd.Pack) 17 gm PO DAILY [facility] Last Admin: 12/23/24 08:13 Dose: 17 gm Documented By: JESS Prednisone (Prednisone 20 Mg Tablet) 40 mg PO DAILY [facility] Stop: 01/02/25 08:59 Last Admin: 12/23/24 08:14 Dose: 40 mg Documented By: JESS Prochlorperazine Edisylate (Prochlorperazine Edisylate 10 Mg/2 Ml Vial) 5 mg IVPUSH Q6H PRN PRN Reason: Nausea and Vomiting Roflumilast (Roflumilast 500 Mcg Tablet) 500 mcg PO DAILY [facility] Last Admin: 12/23/24 08:13 Dose: 500 mcg Documented By: JESS Senna (Sennosides 8.6 Mg Tablet) 8.6 mg PO BID [facility] Last Admin: 12/23/24 08:14 Dose: 8.6 mg Documented By: JESS Sodium Chloride (0.9 % Sodium Chloride Flush 3 Ml Syringe) 3 ml IVFLUSH QSHIFT [facility] Last Admin: 12/23/24 08:15 Dose: 3 ml Documented By: JESS Labs 12/23/24 06:46 12/23/24 06:47 Labs: Laboratory Results - last 24 hr 12/22/24 12/22/24 12/23/24 11:01 17:41 06:46 MCV 97.9 MCH 31.8 MCHC 32.5 RDW 14.5 Plt Count 322 MPV 8.7 L Absolute Nucleated RBC 0.000 Nucleated RBC % (auto) 0.0 PT INR Anion Gap Estim Creat Clear Calc Estimated GFR Random Glucose Calcium Total Bilirubin AST ALT Alkaline Phosphatase Total Protein Albumin Hold Yellow Top See Note Random Vancomycin 10.2 L Respiratory Panel Amrquez See Note Adenovirus (Rapid PCR) Not Detected B.pert (TEM-PCR) Not Detected B.parapertussis DNA PCR Not Detected C. pneumoniae DNA (PCR) Not Detected Coronavirus OC43 (PCR) Not Detected Coronavirus HKU1 (PCR) Not Detected Coronavirus 229E (PCR) Not Detected Coronavirus NL63 (PCR) Not Detected Human Metapneumovir PCR Not Detected Influenza A (RT-PCR) Not Detected Influenza A (H1) PCR Not Detected Influ A (H1/09) PCR Not Detected Influenza A (H3) PCR Not Detected Influenza B (RT-PCR) Not Detected M. pneumoniae (PCR) Not Detected Parainfluenza 1 (PCR) Not Detected Parainfluenza 2 (PCR) Not Detected Parainfluenza 3 (PCR) Not Detected Parainfluenza 4 (PCR) Not Detected RSV (PCR) Not Detected Entero/Rhino (PCR) Not Detected SARS-CoV-2 RNA (RT-PCR) Not Detected 12/23/24 12/23/24 12/23/24 06:47 06:47 06:47 MCV MCH MCHC RDW Plt Count MPV Absolute Nucleated RBC Nucleated RBC % (auto) PT 10.3 L INR 0.9 Anion Gap 11 L Estim Creat Clear Calc 102.1 97.2 Estimated GFR > 60 > 60 Random Glucose 91 Calcium 9.1 Total Bilirubin 0.3 AST 15 ALT 16 Alkaline Phosphatase 41 Total Protein 5.9 L Albumin 4.1 Hold Yellow Top Random Vancomycin Respiratory Panel Marquez Adenovirus (Rapid PCR) B.pert (TEM-PCR) B.parapertussis DNA PCR C. pneumoniae DNA (PCR) Coronavirus OC43 (PCR) Coronavirus HKU1 (PCR) Coronavirus 229E (PCR) Coronavirus NL63 (PCR) Human Metapneumovir PCR Influenza A (RT-PCR) Influenza A (H1) PCR Influ A (H1/09) PCR Influenza A (H3) PCR Influenza B (RT-PCR) M. pneumoniae (PCR) Parainfluenza 1 (PCR) Parainfluenza 2 (PCR) Parainfluenza 3 (PCR) Parainfluenza 4 (PCR) RSV (PCR) Entero/Rhino (PCR) SARS-CoV-2 RNA (RT-PCR) Microbiology Microbiology Results: Microbiology 12/21/24 08:06 Blood Culture - Preliminary Blood - Venous No growth after 48 hours. 12/21/24 08:29 Blood Culture - Preliminary Blood - Venous No growth after 24 hours. Procedures Date of Service Date of Service: 12/23/24 Progress Note: A&P Assessment and plan (1) Constipation: Status: Acute Assessment and Plan: She states her problems are chronic He says she has no she has IBs Abdomen remained soft and benign Currently tolerating diet well Has BMs Continue diet as tolerated No surgical intervention necessary at this time She we will need to be on a regimen of Metamucil, and Colace on discharge She understands the plan Time Spent With Patient Time: Total time managing care of this patient today ____ minutes. Quality Stroke Does the patient have a stroke diagnosis?: No VTE Prior VTE?: No VTE Risk Level:: Medical - moderate - high VTE Device Contraindication: Treatment Not Indicated VTE Drug Contraindication: N/A - Med Ordered
[2024-12-23] MEDS: Furosemide 20 MG/2 ML VIAL IVPUSH (11:12)
--- NOTE | 2024-12-23 11:20 | HE.PHANOTE ---
Re: Vanco Renal has improved. Trough returned at 16.1, pt is therapeutic. Continue current dose of 1,250 mg q12h with predicted AUC 489, predicted trough 15.4. Next trough is 12/24 @ 1100.
--- NOTE | 2024-12-23 12:43 | P.PNIM_ITS ---
Subjective Subjective Date of Service: 12/23/24 Interval History: seen and evaluated this morning having bowel movement reports shortness of breath and dyspnea on O2 supplemnet no other events Review of Systems Review of Systems: Yes all other systems are reviewed and are negative Physical Exam 2 Vital Signs: Vital Signs: Last Vital Signs Temp 98.3 F 12/23/24 11:00 Pulse 90 12/23/24 11:33 Resp 18 12/23/24 11:33 BP 147/72 H 12/23/24 11:00 Pulse Ox 97 12/23/24 11:00 O2 Del Method Nasal Cannula 12/23/24 11:00 O2 Flow Rate 2 12/23/24 11:00 Oxygen Flow Rate 2 12/21/24 06:26 BMI result Body Mass Index 39.7 Const: Other: Constitutional : Awake, interactive, not in distress Neck : Normal inspection, Supple Cardiovascular : RRR, no JVP, no lower extremity edema Respiratory : decreased bilateral air entry, no crackles, expiratory wheezes, on O2 supplement Gastrointestinal: soft, lax, Normal bowel sounds, Non tender Skin : Warm, Dry Neurological : Alert & oriented x3, No focal deficit Objective Data Active Medications Acetaminophen (Acetaminophen 325 Mg Tablet) 975 mg PO Q6H [facility] Last Admin: 12/23/24 11:12 Dose: 975 mg Documented By: JESS Acetaminophen/Butalbital/Caffeine (Butalb/Acetamin/Caff 50/325/40 Tablet) 1 tab PO DAILY MRX1 PRN PRN Reason: Migraine Headache Albuterol Sulfate (Albuterol Sulfate (0.083%) 2.5 Mg/3 Ml Vial.Neb) 2.5 mg INHALE Q2H PRN PRN Reason: Shortness of Breath/Wheezing Last Admin: 12/23/24 02:48 Dose: 2.5 mg Documented By: MARKO Albuterol/Ipratropium (Albuterol/Iprat 2.5/0.5mg 3 Ml Ampul.Neb) 3 ml INHALE RQ4H WHILE AWAKE [facility] Last Admin: 12/23/24 11:22 Dose: 3 ml Documented By: COSME Aripiprazole (Aripiprazole 5 Mg Tablet) 5 mg PO DAILY [facility] Last Admin: 12/23/24 08:14 Dose: 5 mg Documented By: JESS Aspirin (Aspirin Enteric Coated 81 Mg Tablet.) 81 mg PO DAILY@1999 [facility] Last Admin: 12/22/24 22:01 Dose: 81 mg Documented By: RICK Atorvastatin Calcium (Atorvastatin Calcium 80 Mg Tablet) 80 mg PO DAILY@1999 [facility] Last Admin: 12/22/24 22:00 Dose: 80 mg Documented By: RICK Baclofen (Baclofen 20 Mg Tablet) 20 mg PO TID@499, [facility] Last Admin: 12/23/24 11:12 Dose: 20 mg Documented By: JESS Benzonatate (Benzonatate 100 Mg Capsule) 100 mg PO TID PRN PRN Reason: Cough Budesonide (Budesonide 0.5 Mg/2 Ml Ampul.Neb) 0.5 mg INHALE BID [facility] Last Admin: 12/23/24 08:18 Dose: 0.5 mg Documented By: WILL Calcium Carbonate (Calcium Carbonate 750 Mg Tab.Chew) 750 mg PO Q4H PRN PRN Reason: Heartburn Calcium Carbonate/Cholecalciferol (Calcium + Vitamin D 250 Mg Tablet) 250 mg PO DAILY@1999 [facility] Last Admin: 12/22/24 21:59 Dose: 250 mg Documented By: RICK Duloxetine HCl (Duloxetine Hcl 60 Mg Capsule.) 60 mg PO BID@ [facility] Last Admin: 12/23/24 06:17 Dose: 60 mg Documented By: RICK Enoxaparin Sodium (Enoxaparin Sodium 40 Mg/0.4 Ml Syringe) 40 mg SUBCUT Q24H [facility] Last Admin: 12/23/24 08:13 Dose: 40 mg Documented By: JESS Furosemide (Furosemide 20 Mg/2 Ml Vial) 20 mg IVPUSH DAILY [facility]; Protocol Last Admin: 12/23/24 11:12 Dose: 20 mg Documented By: JESS Gabapentin (Gabapentin 400 Mg Capsule) 1,200 mg PO TID@499, [facility] Last Admin: 12/23/24 11:11 Dose: 1,200 mg Documented By: JESS Guaifenesin/Dextromethorphan (Guaifenesin Dm 200/20/10 Ml 10 Ml Syrup) 10 ml PO Q6H PRN PRN Reason: Cough Guaifenesin/Dextromethorphan (Guaifenesin Dm 600/30 1 Tab Tab.Er.12h) 1 tab PO BID [facility] Last Admin: 12/23/24 08:14 Dose: 1 tab Documented By: JESS Cefepime HCl (Maxipime) 2 gm in 50 mls @ 100 mls/hr IV Q8H [facility] Last Infusion: 12/23/24 10:37 Dose: Infused Documented By: JESS Vancomycin HCl 1,250 mg/ (Sodium Chloride) 250 mls @ 166.667 mls/hr IV Q12H [facility] Last Infusion: 12/23/24 03:19 Dose: Infused Documented By: RICK Lorazepam (Lorazepam 0.5 Mg Tablet) 0.5 mg PO BID PRN PRN Reason: MODERATE Anxiety Magnesium Hydroxide (Milk Of Magnesia 30 Ml Oral.Susp) 30 ml PO DAILY PRN PRN Reason: Constipation Melatonin (Melatonin 3 Mg Tablet) 6 mg PO BEDTIME PRN PRN Reason: Insomnia Omeprazole (Omeprazole 20 Mg Capsule.Dr) 20 mg PO DAILY@0630 [facility] Last Admin: 12/23/24 06:16 Dose: 20 mg Documented By: RICK Oxcarbazepine (Oxcarbazepine 300 Mg Tablet) 300 mg PO BID@0600,2100 [facility] Last Admin: 12/23/24 06:17 Dose: 300 mg Documented By: RICK Oxycodone HCl (Oxycodone Hcl Immed Release 5 Mg Tablet) 5 mg PO BID PRN PRN Reason: back pain Last Admin: 12/23/24 08:13 Dose: 5 mg Documented By: JESS Pharmacy Consult (Consult Rx Vancomycin Dosing) 1 each MISCELLANE DAILY PRN PRN Reason: Consult order Polyethylene Glycol (Polyethylene Glycol 3350 17 Gm Powd.Pack) 17 gm PO DAILY [facility] Last Admin: 12/23/24 08:13 Dose: 17 gm Documented By: JESS Prednisone (Prednisone 20 Mg Tablet) 40 mg PO DAILY [facility] Stop: 01/02/25 08:59 Last Admin: 12/23/24 08:14 Dose: 40 mg Documented By: JESS Prochlorperazine Edisylate (Prochlorperazine Edisylate 10 Mg/2 Ml Vial) 5 mg IVPUSH Q6H PRN PRN Reason: Nausea and Vomiting Roflumilast (Roflumilast 500 Mcg Tablet) 500 mcg PO DAILY [facility] Last Admin: 12/23/24 08:13 Dose: 500 mcg Documented By: JESS Senna (Sennosides 8.6 Mg Tablet) 8.6 mg PO BID [facility] Last Admin: 12/23/24 08:14 Dose: 8.6 mg Documented By: JESS Sodium Chloride (0.9 % Sodium Chloride Flush 3 Ml Syringe) 3 ml IVFLUSH QSHIFT [facility] Last Admin: 12/23/24 08:15 Dose: 3 ml Documented By: JESS Labs 12/23/24 06:46 12/23/24 06:47 Labs: Laboratory Results - last 24 hr 12/22/24 12/23/24 12/23/24 17:41 06:46 06:47 MCV 97.9 MCH 31.8 MCHC 32.5 RDW 14.5 Plt Count 322 MPV 8.7 L Absolute Nucleated RBC 0.000 Nucleated RBC % (auto) 0.0 PT 10.3 L INR 0.9 Anion Gap 11 L Estim Creat Clear Calc 102.1 Estimated GFR Random Glucose Calcium Total Bilirubin AST ALT Alkaline Phosphatase Total Protein Albumin Vancomycin Trough Respiratory Panel Marquez See Note Adenovirus (Rapid PCR) Not Detected B.pert (TEM-PCR) Not Detected B.parapertussis DNA PCR Not Detected C. pneumoniae DNA (PCR) Not Detected Coronavirus OC43 (PCR) Not Detected Coronavirus HKU1 (PCR) Not Detected Coronavirus 229E (PCR) Not Detected Coronavirus NL63 (PCR) Not Detected Human Metapneumovir PCR Not Detected Influenza A (RT-PCR) Not Detected Influenza A (H1) PCR Not Detected Influ A (H1/09) PCR Not Detected Influenza A (H3) PCR Not Detected Influenza B (RT-PCR) Not Detected M. pneumoniae (PCR) Not Detected Parainfluenza 1 (PCR) Not Detected Parainfluenza 2 (PCR) Not Detected Parainfluenza 3 (PCR) Not Detected Parainfluenza 4 (PCR) Not Detected RSV (PCR) Not Detected Entero/Rhino (PCR) Not Detected SARS-CoV-2 RNA (RT-PCR) Not Detected 12/23/24 12/23/24 12/23/24 06:47 06:47 10:57 MCV MCH MCHC RDW Plt Count MPV Absolute Nucleated RBC Nucleated RBC % (auto) PT INR Anion Gap Estim Creat Clear Calc 97.2 Estimated GFR > 60 > 60 Random Glucose 91 Calcium 9.1 Total Bilirubin 0.3 AST 15 ALT 16 Alkaline Phosphatase 41 Total Protein 5.9 L Albumin 4.1 Vancomycin Trough 16.1 Respiratory Panel Marquez Adenovirus (Rapid PCR) B.pert (TEM-PCR) B.parapertussis DNA PCR C. pneumoniae DNA (PCR) Coronavirus OC43 (PCR) Coronavirus HKU1 (PCR) Coronavirus 229E (PCR) Coronavirus NL63 (PCR) Human Metapneumovir PCR Influenza A (RT-PCR) Influenza A (H1) PCR Influ A (H1/09) PCR Influenza A (H3) PCR Influenza B (RT-PCR) M. pneumoniae (PCR) Parainfluenza 1 (PCR) Parainfluenza 2 (PCR) Parainfluenza 3 (PCR) Parainfluenza 4 (PCR) RSV (PCR) Entero/Rhino (PCR) SARS-CoV-2 RNA (RT-PCR) Microbiology Microbiology Results: Microbiology 12/21/24 08:29 Blood Culture - Preliminary Blood - Venous No growth after 48 hours. 12/21/24 08:06 Blood Culture - Preliminary Blood - Venous No growth after 48 hours. Assessment and Plan (1) Constipation: Status: Acute (2) Leukocytosis: Status: Acute (3) Acute on chronic respiratory failure with hypoxia and hypercapnia: Status: Acute (4) Sepsis: Status: Acute (5) Acute on chronic respiratory failure: Status: Acute (6) Pneumonia: Status: Acute Plan Zulma Alves is a 59 y/o woman admitted with: Acute on chronic hypoxic and hypercapnic respiratory failure secondary to acute exacerbation of COPD and Pneumonia CTA showed Ill-defined patchy and nodular consolidations in the right middle lobe, to a lesser extent lingula. Likely a progression of her chronic COPD in the setting of anxiety and medication noncompliance and, continued smoking continue prednisone 40 mg daily Give Lasix 20 mg IV for fluid retention on Empirical antibiotic therapy of IV Cefepime and Vancomycin, Cx negative after 48 hours, deescalate to PO Levaquin Continue bronchodilator therapy Continue roflumilast. CPAP p.r.n. nocturnally Wean O2 down as tolerated Constipation having BM Surgery input appreciated, will need to be on a regimen of Metamucil, and Colace on discharge Leukocytosis. Likely secondary to steroids and dehydration Blood cultures pending Hyperlipidemia. Continue statin. Essential hypertension. Hold prazosin for now due to soft BP. Furosemide and losartan was discontinued during last hospitalization for hypotension and dehydration History of trigeminal neuralgia. Continue gabapentin, baclofen, topical lidocaine oxcarbazepine. Chronic back pain. Continue oxycodone. would benefit from nonnarcotic pain management-Tylenol plus NSAID plus PPI Moderate aortic stenosis No evidence of acute CHF. Patient denied chest pain or syncopal episode. Mood disorder. Continue lorazepam as needed, duloxetine and aripiprazole. History of CVA. Continue aspirin and statin. Obesity, class II. BMI 39.7. DVT PPX Lovenox Quality Stroke Does the patient have a stroke diagnosis?: No VTE Prior VTE?: No VTE Risk Level:: Medical - moderate - high VTE Device Contraindication: Treatment Not Indicated VTE Drug Contraindication: N/A - Med Ordered
--- NOTE | 2024-12-23 15:43 | MHC.CM.PN ---
CM MET WITH PT AND BROTHER, KARMEN MCCLELLAND [phone] AT BEDSIDE PER HER REQUEST HE REPORTS HE IS HOPING SHE CAN GET HOME CARE SHE GETS CONFUSED AND IS NOT ALWAYS TAKING HER MEDS CORRECTLY HE WAS INFORMED PT HAS BEEN SET UP WITH HOME CARE FOLLOWING SEVERAL ADMISSIONS SHE WAS SET UP WITH [facility], HOWEVER DISCONTINUED SERVICES SHE DID NOT AGREE WITH THE [facility] SHE WAS ACTIVE WITH [facility] PRIOR TO HER STAY AT [facility], AND THEY UNDERSTAND THIS MAY BE HER ONLY HOME SERVICE OPTION SEVERAL AGENCIES HAVE DISCHARGED HER DUE TO NON-COMPLIANCE AND READMISSION RATES THEY REPORT THEY WOULD LIKE [facility] TO ARRANGE A MED BOX, PTS BROTHER REQUESTED INFO ON BUBBLE PACKED MEDS, HOWEVER PT STATED SHE DID NOT WANT TO CHANGE PHARMACIES RETURN REFERRAL SENT TO [facility]
[2024-12-23] MEDS: Calcium + Vitamin D 250 MG TABLET PO (20:06)
[2024-12-23] MEDS: Aspirin Enteric Coated 81 MG TABLET.DR PO (20:07)
[2024-12-24] VITALS (9 sets, daily range): BP systolic 132–155; BP diastolic 52–69; PULSE 76–90; RESP 17–20; TEMP 36–36.7; O2SAT 96–98
[2024-12-24] MEDS: Albuterol Sulfate (0.083%) 2.5 MG/3 ML VIAL.NEB INHALE (02:34)
[2024-12-24 05:55] LABS: MANUAL DIFF FLAG NO
[2024-12-24 06:10] LABS: Anion Gap 10 (12-20); Blood Urea Nitrogen 12 mg/dL (9-16); Calcium 9.1 mg/dL (8.4-10.2); Carbon Dioxide 31 mmol/L (22-29); Chloride 109 mmol/L (96-108); Creatinine Clr Calc Pharmacy 74.1; Estimated Glomerular Filt Rate > 60; Potassium 4.0 mmol/L (3.3-5.1); Sodium 146 mmol/L (135-145)
[2024-12-24 06:53] LABS: Hematocrit 33.8 % (37.0-47.0); Hemoglobin 10.9 g/dl (12.0-16.0); Imm Gran Abs Auto 0.12 X10*3/uL (0.00-0.03); Imm Gran Pct Auto 1.0 % (0.0-0.4); Lymphocytes Absolute Auto 2.3 X10*3/uL (1.2-4.9); Mean Corpuscular HGB Conc 32.2 g/dl (31.0-35.0); Mean Corpuscular Hemoglobin 32.0 pg (27.0-33.0); Mean Corpuscular Volume 99.1 fL (80.0-98.0); NRBC Abs Auto 0.000 X10*3/uL (0.0-0.012); NRBC Pct Auto 0.0 /100WBC (0.0-0.2); Platelet Count 322 X10*3/uL (160-400); Red Blood Count 3.41 X10*6/uL (4.20-5.50); White Blood Count 11.8 X10*3/uL (4.8-10.8)
[2024-12-24] MEDS: 0.9 % Sodium Chloride Flush 3 ML SYRINGE IVFLUSH ×3 (08:03→21:16)
[2024-12-24] MEDS: Furosemide 20 MG/2 ML VIAL IVPUSH (08:04)
[2024-12-24] MEDS: guaiFENesin DM 600/30 1 TAB TAB.ER.12H PO ×2 (08:04→21:12)
[2024-12-24] MEDS: oxyCODONE HCl Immed Release 5 MG TABLET PO ×2 (08:10→21:14)
[2024-12-24] MEDS: Albuterol/Iprat 2.5/0.5MG 3 ML AMPUL.NEB INHALE ×4 (08:18→20:21)
--- NOTE | 2024-12-24 09:46 | PM.PNGS ---
Subjective Subjective Date of Service: 12/24/24 Interval history: Feels well signs she says she is just short of breath Denies abdominal pain Has flatus and BMs Tolerating regular diet Physical Exam Vital Signs: Vital Signs: Last Vital Signs Temp 98.1 F 12/24/24 07:31 Pulse 82 12/24/24 07:31 Resp 20 12/24/24 07:31 BP 155/65 H 12/24/24 07:31 Pulse Ox 96 12/24/24 07:31 O2 Del Method Nasal Cannula 12/24/24 07:31 O2 Flow Rate 2 12/24/24 07:31 Oxygen Flow Rate 2 12/21/24 06:26 BMI result Body Mass Index 39.7 Const: Other: Appears mildly short of breath General: comfortable and no acute distress Resp: Effort & Inspection: normal respiratory effort Cardio: Rate: regular rate GI: Other: Soft, nontender, obese Objective Data Active Medications Acetaminophen (Acetaminophen 325 Mg Tablet) 975 mg PO Q6H [facility] Last Admin: 12/24/24 05:50 Dose: 975 mg Documented By: AMY Acetaminophen/Butalbital/Caffeine (Butalb/Acetamin/Caff 50/325/40 Tablet) 1 tab PO DAILY MRX1 PRN PRN Reason: Migraine Headache Albuterol Sulfate (Albuterol Sulfate (0.083%) 2.5 Mg/3 Ml Vial.Neb) 2.5 mg INHALE Q2H PRN PRN Reason: Shortness of Breath/Wheezing Last Admin: 12/24/24 02:34 Dose: 2.5 mg Documented By: MARKO Albuterol/Ipratropium (Albuterol/Iprat 2.5/0.5mg 3 Ml Ampul.Neb) 3 ml INHALE RQ4H WHILE AWAKE [facility] Last Admin: 12/24/24 08:18 Dose: 3 ml Documented By: WILL Aripiprazole (Aripiprazole 5 Mg Tablet) 5 mg PO DAILY [facility] Last Admin: 12/24/24 08:04 Dose: 5 mg Documented By: TSERING Aspirin (Aspirin Enteric Coated 81 Mg Tablet.) 81 mg PO DAILY@1999 [facility] Last Admin: 12/23/24 20:07 Dose: 81 mg Documented By: AMY Atorvastatin Calcium (Atorvastatin Calcium 80 Mg Tablet) 80 mg PO DAILY@1999 [facility] Last Admin: 12/23/24 20:06 Dose: 80 mg Documented By: AMY Baclofen (Baclofen 20 Mg Tablet) 20 mg PO TID@499, [facility] Last Admin: 12/24/24 05:49 Dose: 20 mg Documented By: AMY Benzonatate (Benzonatate 100 Mg Capsule) 100 mg PO TID PRN PRN Reason: Cough Budesonide (Budesonide 0.5 Mg/2 Ml Ampul.Neb) 0.5 mg INHALE BID [facility] Last Admin: 12/24/24 08:18 Dose: 0.5 mg Documented By: WILL Calcium Carbonate (Calcium Carbonate 750 Mg Tab.Chew) 750 mg PO Q4H PRN PRN Reason: Heartburn Calcium Carbonate/Cholecalciferol (Calcium + Vitamin D 250 Mg Tablet) 250 mg PO DAILY@1999 [facility] Last Admin: 12/23/24 20:06 Dose: 250 mg Documented By: AMY Duloxetine HCl (Duloxetine Hcl 60 Mg Capsule.) 60 mg PO BID@ [facility] Last Admin: 12/24/24 05:49 Dose: 60 mg Documented By: AMY Enoxaparin Sodium (Enoxaparin Sodium 40 Mg/0.4 Ml Syringe) 40 mg SUBCUT Q24H [facility] Last Admin: 12/24/24 08:05 Dose: 40 mg Documented By: TSERING Furosemide (Furosemide 20 Mg/2 Ml Vial) 20 mg IVPUSH DAILY [facility]; Protocol Last Admin: 12/24/24 08:04 Dose: 20 mg Documented By: TSERING Gabapentin (Gabapentin 400 Mg Capsule) 1,200 mg PO TID@499, [facility] Last Admin: 12/24/24 05:49 Dose: 1,200 mg Documented By: AMY Guaifenesin/Dextromethorphan (Guaifenesin Dm 200/20/10 Ml 10 Ml Syrup) 10 ml PO Q6H PRN PRN Reason: Cough Guaifenesin/Dextromethorphan (Guaifenesin Dm 600/30 1 Tab Tab.Er.12h) 1 tab PO BID [facility] Last Admin: 12/24/24 08:04 Dose: 1 tab Documented By: TSERING Levofloxacin (Levofloxacin 750 Mg Tablet) 750 mg PO Q24H [facility] Last Admin: 12/23/24 13:16 Dose: 750 mg Documented By: JESS Lorazepam (Lorazepam 0.5 Mg Tablet) 0.5 mg PO BID PRN PRN Reason: MODERATE Anxiety Last Admin: 12/23/24 20:16 Dose: 0.5 mg Documented By: AMY Magnesium Hydroxide (Milk Of Magnesia 30 Ml Oral.Susp) 30 ml PO DAILY PRN PRN Reason: Constipation Melatonin (Melatonin 3 Mg Tablet) 6 mg PO BEDTIME PRN PRN Reason: Insomnia Omeprazole (Omeprazole 20 Mg Capsule.Dr) 20 mg PO DAILY@0630 [facility] Last Admin: 12/24/24 05:49 Dose: 20 mg Documented By: AMY Oxcarbazepine (Oxcarbazepine 300 Mg Tablet) 300 mg PO BID@0600,2100 [facility] Last Admin: 12/24/24 05:50 Dose: 300 mg Documented By: AMY Oxycodone HCl (Oxycodone Hcl Immed Release 5 Mg Tablet) 5 mg PO BID PRN PRN Reason: back pain Last Admin: 12/24/24 08:10 Dose: 5 mg Documented By: TSERING Polyethylene Glycol (Polyethylene Glycol 3350 17 Gm Powd.Pack) 17 gm PO DAILY [facility] Last Admin: 12/24/24 08:04 Dose: 17 gm Documented By: TSERING Prednisone (Prednisone 20 Mg Tablet) 40 mg PO DAILY [facility] Stop: 01/02/25 08:59 Last Admin: 12/24/24 08:04 Dose: 40 mg Documented By: TSERING Prochlorperazine Edisylate (Prochlorperazine Edisylate 10 Mg/2 Ml Vial) 5 mg IVPUSH Q6H PRN PRN Reason: Nausea and Vomiting Roflumilast (Roflumilast 500 Mcg Tablet) 500 mcg PO DAILY [facility] Last Admin: 12/24/24 08:03 Dose: 500 mcg Documented By: TSERING Senna (Sennosides 8.6 Mg Tablet) 8.6 mg PO BID [facility] Last Admin: 12/24/24 08:04 Dose: 8.6 mg Documented By: TSERING Sodium Chloride (0.9 % Sodium Chloride Flush 3 Ml Syringe) 3 ml IVFLUSH QSHIFT [facility] Last Admin: 12/24/24 08:03 Dose: 3 ml Documented By: TSERING Labs 12/24/24 05:45 12/24/24 05:45 Labs: Laboratory Results - last 24 hr 12/22/24 12/23/24 12/24/24 17:41 10:57 05:45 MCV 99.1 H MCH 32.0 MCHC 32.2 RDW 14.3 Plt Count 322 MPV 9.0 L Immature Gran % (Auto) 1.0 H Neut % (Auto) 67.2 Lymph % (Auto) 19.6 L [place] % (Auto) 9.9 Eos % (Auto) 2.0 Baso % (Auto) 0.3 Lymph # (Auto) 2.3 [place] # (Auto) 1.2 Eos # (Auto) 0.2 Baso # (Auto) 0.0 Abs Immat Gran (auto) 0.12 H Absolute Neuts (auto) 7.9 Absolute Nucleated RBC 0.000 Nucleated RBC % (auto) 0.0 Anion Gap 10 L Estim Creat Clear Calc 74.1 Estimated GFR > 60 Random Glucose 140 H Calcium 9.1 Vancomycin Trough 16.1 Respiratory Panel Marquez See Note Adenovirus (Rapid PCR) Not Detected B.pert (TEM-PCR) Not Detected B.parapertussis DNA PCR Not Detected C. pneumoniae DNA (PCR) Not Detected Coronavirus OC43 (PCR) Not Detected Coronavirus HKU1 (PCR) Not Detected Coronavirus 229E (PCR) Not Detected Coronavirus NL63 (PCR) Not Detected Human Metapneumovir PCR Not Detected Influenza A (RT-PCR) Not Detected Influenza A (H1) PCR Not Detected Influ A (H1/09) PCR Not Detected Influenza A (H3) PCR Not Detected Influenza B (RT-PCR) Not Detected M. pneumoniae (PCR) Not Detected Parainfluenza 1 (PCR) Not Detected Parainfluenza 2 (PCR) Not Detected Parainfluenza 3 (PCR) Not Detected Parainfluenza 4 (PCR) Not Detected RSV (PCR) Not Detected Entero/Rhino (PCR) Not Detected SARS-CoV-2 RNA (RT-PCR) Not Detected Microbiology Microbiology Results: Microbiology 12/21/24 08:29 Blood Culture - Preliminary Blood - Venous No growth after 48 hours. 12/21/24 08:06 Blood Culture - Preliminary Blood - Venous No growth after 48 hours. Procedures Date of Service Date of Service: 12/24/24 Progress Note: A&P Assessment and plan (1) Constipation: Status: Acute Assessment and Plan: She states she has known IBS for many years Would recommend Metamucil and Colace every day Tolerating diet Abdomen is soft and benign She does have chronic respiratory failure and is on home O2 Kindly reconsult if with questions Time Spent With Patient Time: Total time managing care of this patient today ____ minutes. Quality Stroke Does the patient have a stroke diagnosis?: No VTE Prior VTE?: No VTE Risk Level:: Medical - moderate - high VTE Device Contraindication: Treatment Not Indicated VTE Drug Contraindication: N/A - Med Ordered
--- NOTE | 2024-12-24 12:53 | HO.PM.IMPN ---
Subjective Subjective Date of Service: 12/24/24 Interval History: seen and evaluated this morning Anxious but much calmer today, looks better overall on O2 supplemnet, dyspnea and SOB on exertion, maintains O2 in upper 90s having bowel movement no other events Review of Systems Review of Systems: Yes all other systems are reviewed and are negative Physical Exam Vital Signs: Vital Signs: Last Vital Signs Temp 96.8 F 12/24/24 12:00 Pulse 84 12/24/24 12:00 Resp 18 12/24/24 12:00 BP 133/67 12/24/24 12:00 Pulse Ox 96 12/24/24 12:00 O2 Del Method Nasal Cannula 12/24/24 12:00 O2 Flow Rate 2 12/24/24 12:00 Oxygen Flow Rate 2 12/21/24 06:26 BMI result Body Mass Index 39.7 Const: Other: Constitutional : Awake, interactive, not in distress Neck : Normal inspection, Supple Cardiovascular : RRR, no JVP, no lower extremity edema Respiratory : decreased bilateral air entry, no crackles, scattered expiratory wheezes more in left side, on O2 supplement Gastrointestinal: soft, lax, Normal bowel sounds, Non tender Skin : Warm, Dry Neurological : Alert & oriented x3, No focal deficit Objective Data Active Medications Acetaminophen (Acetaminophen 325 Mg Tablet) 975 mg PO Q6H [facility] Last Admin: 12/24/24 10:44 Dose: 975 mg Documented By: TSERING Acetaminophen/Butalbital/Caffeine (Butalb/Acetamin/Caff 50/325/40 Tablet) 1 tab PO DAILY MRX1 PRN PRN Reason: Migraine Headache Albuterol Sulfate (Albuterol Sulfate (0.083%) 2.5 Mg/3 Ml Vial.Neb) 2.5 mg INHALE Q2H PRN PRN Reason: Shortness of Breath/Wheezing Last Admin: 12/24/24 02:34 Dose: 2.5 mg Documented By: MARKO Albuterol/Ipratropium (Albuterol/Iprat 2.5/0.5mg 3 Ml Ampul.Neb) 3 ml INHALE RQ4H WHILE AWAKE [facility] Last Admin: 12/24/24 11:42 Dose: 3 ml Documented By: WILL Aripiprazole (Aripiprazole 5 Mg Tablet) 5 mg PO DAILY [facility] Last Admin: 12/24/24 08:04 Dose: 5 mg Documented By: TSERING Aspirin (Aspirin Enteric Coated 81 Mg Tablet.) 81 mg PO DAILY@1999 [facility] Last Admin: 12/23/24 20:07 Dose: 81 mg Documented By: AMY Atorvastatin Calcium (Atorvastatin Calcium 80 Mg Tablet) 80 mg PO DAILY@1999 [facility] Last Admin: 12/23/24 20:06 Dose: 80 mg Documented By: AMY Baclofen (Baclofen 20 Mg Tablet) 20 mg PO TID@499, [facility] Last Admin: 12/24/24 12:03 Dose: 20 mg Documented By: TSERING Benzonatate (Benzonatate 100 Mg Capsule) 100 mg PO TID PRN PRN Reason: Cough Budesonide (Budesonide 0.5 Mg/2 Ml Ampul.[place]) 0.5 mg INHALE BID [facility] Last Admin: 12/24/24 08:18 Dose: 0.5 mg Documented By: WILL Calcium Carbonate (Calcium Carbonate 750 Mg Tab.Chew) 750 mg PO Q4H PRN PRN Reason: Heartburn Calcium Carbonate/Cholecalciferol (Calcium + Vitamin D 250 Mg Tablet) 250 mg PO DAILY@1999 [facility] Last Admin: 12/23/24 20:06 Dose: 250 mg Documented By: AMY Duloxetine HCl (Duloxetine Hcl 60 Mg Capsule.) 60 mg PO BID@ [facility] Last Admin: 12/24/24 05:49 Dose: 60 mg Documented By: AMY Enoxaparin Sodium (Enoxaparin Sodium 40 Mg/0.4 Ml Syringe) 40 mg SUBCUT Q24H [facility] Last Admin: 12/24/24 08:05 Dose: 40 mg Documented By: TSERING Furosemide (Furosemide 20 Mg/2 Ml Vial) 20 mg IVPUSH DAILY [facility]; Protocol Last Admin: 12/24/24 08:04 Dose: 20 mg Documented By: TSERING Gabapentin (Gabapentin 400 Mg Capsule) 1,200 mg PO TID@499, [facility] Last Admin: 12/24/24 12:03 Dose: 1,200 mg Documented By: TSERING Guaifenesin/Dextromethorphan (Guaifenesin Dm 200/20/10 Ml 10 Ml Syrup) 10 ml PO Q6H PRN PRN Reason: Cough Guaifenesin/Dextromethorphan (Guaifenesin Dm 600/30 1 Tab Tab.Er.12h) 1 tab PO BID [facility] Last Admin: 12/24/24 08:04 Dose: 1 tab Documented By: TSERING Levofloxacin (Levofloxacin 750 Mg Tablet) 750 mg PO Q24H [facility] Last Admin: 12/24/24 12:03 Dose: 750 mg Documented By: TSERING Lorazepam (Lorazepam 0.5 Mg Tablet) 0.5 mg PO BID PRN PRN Reason: MODERATE Anxiety Last Admin: 12/23/24 20:16 Dose: 0.5 mg Documented By: AMY Magnesium Hydroxide (Milk Of Magnesia 30 Ml Oral.Susp) 30 ml PO DAILY PRN PRN Reason: Constipation Melatonin (Melatonin 3 Mg Tablet) 6 mg PO BEDTIME PRN PRN Reason: Insomnia Omeprazole (Omeprazole 20 Mg Capsule.Dr) 20 mg PO DAILY@0630 [facility] Last Admin: 12/24/24 05:49 Dose: 20 mg Documented By: AMY Oxcarbazepine (Oxcarbazepine 300 Mg Tablet) 300 mg PO BID@0600,2100 [facility] Last Admin: 12/24/24 05:50 Dose: 300 mg Documented By: AMY Oxycodone HCl (Oxycodone Hcl Immed Release 5 Mg Tablet) 5 mg PO BID PRN PRN Reason: back pain Last Admin: 12/24/24 08:10 Dose: 5 mg Documented By: TSERING Polyethylene Glycol (Polyethylene Glycol 3350 17 Gm Powd.Pack) 17 gm PO DAILY [facility] Last Admin: 12/24/24 08:04 Dose: 17 gm Documented By: TSERING Prednisone (Prednisone 20 Mg Tablet) 40 mg PO DAILY [facility] Stop: 01/02/25 08:59 Last Admin: 12/24/24 08:04 Dose: 40 mg Documented By: TSERING Prochlorperazine Edisylate (Prochlorperazine Edisylate 10 Mg/2 Ml Vial) 5 mg IVPUSH Q6H PRN PRN Reason: Nausea and Vomiting Roflumilast (Roflumilast 500 Mcg Tablet) 500 mcg PO DAILY [facility] Last Admin: 12/24/24 08:03 Dose: 500 mcg Documented By: TSERING Senna (Sennosides 8.6 Mg Tablet) 8.6 mg PO BID [facility] Last Admin: 12/24/24 08:04 Dose: 8.6 mg Documented By: TSERING Sodium Chloride (0.9 % Sodium Chloride Flush 3 Ml Syringe) 3 ml IVFLUSH QSHIFT [facility] Last Admin: 12/24/24 08:03 Dose: 3 ml Documented By: TSERING Labs 12/24/24 05:45 12/24/24 05:45 Labs: Laboratory Results - last 24 hr 12/24/24 05:45 MCV 99.1 H MCH 32.0 MCHC 32.2 RDW 14.3 Plt Count 322 MPV 9.0 L Immature Gran % (Auto) 1.0 H Neut % (Auto) 67.2 Lymph % (Auto) 19.6 L [place] % (Auto) 9.9 Eos % (Auto) 2.0 Baso % (Auto) 0.3 Lymph # (Auto) 2.3 [place] # (Auto) 1.2 Eos # (Auto) 0.2 Baso # (Auto) 0.0 Abs Immat Gran (auto) 0.12 H Absolute Neuts (auto) 7.9 Absolute Nucleated RBC 0.000 Nucleated RBC % (auto) 0.0 Anion Gap 10 L Estim Creat Clear Calc 74.1 Estimated GFR > 60 Random Glucose 140 H Calcium 9.1 Microbiology Microbiology Results: Microbiology 12/21/24 08:29 Blood Culture - Preliminary Blood - Venous No growth after 48 hours. 12/21/24 08:06 Blood Culture - Preliminary Blood - Venous No growth after 48 hours. Assessment and Plan (1) Constipation: Status: Acute (2) Acute on chronic respiratory failure with hypoxia and hypercapnia: Status: Acute (3) Chronic lung disease: Status: Acute Plan Zulma Alves is a 59 y/o woman admitted with: Acute on chronic hypoxic and hypercapnic respiratory failure secondary to acute exacerbation of COPD and Pneumonia CTA showed Ill-defined patchy and nodular consolidations in the right middle lobe, to a lesser extent lingula. Likely a progression of her chronic COPD in the setting of anxiety and medication noncompliance and, continued smoking, not wearing CPAP continue prednisone 40 mg daily Give Lasix 20 mg IV for fluid retention , consider PO Lasix everyother day upon discharge on Empirical antibiotic therapy of IV Cefepime and Vancomycin, Cx negative after 48 hours, deescalated to PO Levaquin Continue bronchodilator therapy Continue roflumilast. CPAP p.r.n. nocturnally Wean O2 down as tolerated , plan to DC home tomorrow to finish tapering dose Prednisone, PO Abx and home nebulizers and inhalers Hx JUANITO unable to wear CPAP because of trigeminal neuralgia for many years now failed nasal CPAP as well advised to lose weight and try mouth piece Smoking Advised to quit Constipation having BM Surgery input appreciated, will need to be on a regimen of Metamucil, and Colace on discharge Leukocytosis. Likely secondary to steroids and dehydration Blood cultures pending Hyperlipidemia. Continue statin. Essential hypertension. Hold prazosin for now due to soft BP. Furosemide and losartan was discontinued during last hospitalization for hypotension and dehydration History of trigeminal neuralgia. Continue gabapentin, baclofen, topical lidocaine oxcarbazepine. Chronic back pain. Continue oxycodone. would benefit from nonnarcotic pain management-Tylenol plus NSAID plus PPI Moderate aortic stenosis No evidence of acute CHF. Patient denied chest pain or syncopal episode. Mood disorder. Continue lorazepam as needed, duloxetine and aripiprazole. History of CVA. Continue aspirin and statin. Obesity, class II. BMI 39.7. advised to lose weight DVT PPX Lovenox Quality Stroke Does the patient have a stroke diagnosis?: No VTE Prior VTE?: No VTE Risk Level:: Medical - moderate - high VTE Device Contraindication: Treatment Not Indicated VTE Drug Contraindication: N/A - Med Ordered
[2024-12-24] MEDS: guaiFENesin DM 200/20/10 ML 10 ML SYRUP PO (16:57)
[2024-12-24] MEDS: Calcium + Vitamin D 250 MG TABLET PO (21:12)
[2024-12-24] MEDS: Aspirin Enteric Coated 81 MG TABLET.DR PO (21:12)
[2024-12-25] VITALS (8 sets, daily range): BP systolic 110–154; BP diastolic 60–70; PULSE 77–110; RESP 16–20; TEMP 36–36.7; O2SAT 94–98
[2024-12-25] MEDS: guaiFENesin DM 200/20/10 ML 10 ML SYRUP PO ×2 (02:00→12:48)
[2024-12-25] MEDS: Albuterol Sulfate (0.083%) 2.5 MG/3 ML VIAL.NEB INHALE (04:44)
[2024-12-25] MEDS: Albuterol/Iprat 2.5/0.5MG 3 ML AMPUL.NEB INHALE ×3 (08:01→15:08)
[2024-12-25] MEDS: guaiFENesin DM 600/30 1 TAB TAB.ER.12H PO (08:17)
[2024-12-25] MEDS: oxyCODONE HCl Immed Release 5 MG TABLET PO (08:22)
[2024-12-25] MEDS: 0.9 % Sodium Chloride Flush 3 ML SYRINGE IVFLUSH (08:23)
--- NOTE | 2024-12-25 13:17 | MHC.CM.PN ---
Addendum entered by Debi Kearns RN 12/25/24 16:25: PA met with patient and brother. Plan for dc home today w/ [facility]. Brother to transport. Original Note: CM met with patient at bedside and brother Vladimir, per patient request, via telephone ([phone]). Per MD, patient is medically cleared for dc. PT rec home w/ services. Per patient, PT recommended this because she declined STR. Reports she feels uneasy about getting around the house by herself while is at work (8am-5pm), but continues to decline STR. Previously had [employer] services w/ [facility], but cancelled services as she does not feel she can manage the co-pay. Referral sent again to [facility], patient states she will likely decline services but would be willing to speak with a case technician. Also discussed potential of reaching out to other homecare/[employer] agencies - patient declines for the same reason as above, does not feel she can manage it financially. [facility] has accepted and will provide PT/SN on dc. Patient and brother aware. Vladimir/brother requesting to meet with provider to review plan of care. PA aware and agreeable. Plan for meeting at 3pm and likely dc after. CM will continue to follow.
--- NOTE | 2024-12-25 16:38 | P.F2F_ITS ---
Service Date Service Date: 12/25/24 Encounter Date of encounter: 12/25/24 Reasons for Services Signs and symptoms assessed: COPD exacerbation complicated by underlying pneumonia. Reason for mcfp: medication management and teach disease management Reason for physical therapy: home safety and mobility Homebound: Leaving the home is medically contraindicated at this time without the asist of a device and/or another person due th the listed conditions above and below. Reason homebound: unsteady gait / fall risk and shortness of breath with minimal effort Certification: Based on the above findings, I certify that this patient is confined to the home and needs intermittent mcfp care, physical therapy and/or speech therapy, or continues to need occupational therapy. The patient is under my care, and I have initiated the establishment of the plan of care. The patient will be followed by a physician who will periodically review the plan of care. Time Spent With Patient Time: Total time managing care of this patient today ____ minutes.
--- NOTE | 2024-12-25 16:40 | PM.DS ---
DS: Providers Provider Date of Service: 12/25/24 Date of admission: 12/21/24 11:12 Date of discharge: 12/25/24 Primary care physician: Antione Segura PA-C Consults: 12/21/24 21:29 Consult to General Surgery Routine Consulting Provider: [facility] Reason for consultation: npo DS: Diagnosis Discharge Diagnosis (1) Constipation: Status: Acute (2) Acute on chronic respiratory failure with hypoxia and hypercapnia: Status: Acute (3) Chronic lung disease: Status: Acute DS: Summary Hospital Course Hospital Course: From Admission HPI: Date of Service: 12/21/24 Attending physician on admission: Desiree Peoples Chief Complaint: Shortness on breath Zulma Alves is a 59 years old woman with past medical history significant for COPD on home oxygen on 1-3L/min, hyperlipidemia, nephrolithiasis, CVA, obesity, moderate , chronic pain and oxycodone and essential hypertension presents to the emergency department complaining of worsening shortness on breath, productive cough of green sputum and suggestive fever that started today. She was recently discharged from the hospital with similar symptoms. She also reported some nausea but denied events of vomiting. She did not report headache, chest pain, abdominal pain or diarrhea. She did not report any acute urinary symptoms. was at bedside. In the ED, she was found to have low blood pressure (lowest 84/36). There is no tachycardia or fever. She has been placed on 4 L/min supplemental oxygen and currently receiving a breathing treatment. Blood workup was remarkable for leukocytosis of 15.1. Hemoglobin is 12.2 and platelets 343. Venous gas showed pH of 7.36 and pCO2 is 63. Bicarb is 36. There are no significant electrolyte imbalances. BUN is 17 and creatinine 0.86. LFTs are normal and C-reactive protein is 1.32. Procalcitonin is normal, 0.05. Last TSH (July 10) is normal. Urinalysis remarkable for elevated specific gravity , trace protein with no findings of UTI. Serology for COVID-19, influenza and RSV is negative. CXR showed acute small airway inflammation but no consolidation or pleural effusions. ED Tx: LR 2 L bolus, cefepime 2 g and acetaminophen 1 g IV. Hospital course: The pt was admitted to the hospital for acute on chronic hypoxic and hypercapnic respiratory failure in the setting of acute exacerbation of COPD. Abdominal pelvis CT showed findings consistent with possible mild SBO but no obstructive left renal calculi; CTA of chest showed no large proximal PE, though showed ill-defined patchy and nodular consolidation in the right mid lobe and lesser extent lingual. Thought likely secondary to COPD progression and medical noncompliance, though treated with empiric cefepime and vancomycin and add gentle IV fluid resuscitation. Also received nebulizers and initially with IV steroids that were transitioned to p.o. prednisone. Pt overall did well with improved SOB and was seen ambulating without difficulty on home 2 L O2. Was also seen and evaluated by General surgery and SBO was ruled out. Spoke to pt and family at bedside where they expressed concerns about patient's multiple recent hospitalizations. According to the family pt has been hospitalized 20 1 times in the past year. Pt has a long hx of difficulty complying with home medications, including CPAP as well as p.o. prescriptions. Through the also likely a psychological component to patient's condition, and difficulties with breathing are likely exacerbated by uncontrolled anxiety. Pt has recently sought out mental health care, and should continue to seek out both therapy and medication management for this. Pt will be discharged home on levofloxacin 750 mg p.o. daily x3 days, as well as short prednisone taper of 40 mg p.o. daily x3 days. Pt is strongly encouraged to be compliant with CPAP; follow up with pulmonology for other possible oxygen delivery systems that will not affect trigeminal neuralgia. Also reports quit smoking in April of last year. Pt will be discharged with both PT services as well as VNA services for medication management. Pt expresses wishes for help with organizing and distributing medications that she needs to take. Also reports has difficulty keeping track of recent medication changes and what she is currently supposed to be taking. For hyperlipidemia continue statin. For hx of trigeminal neuralgia, continue gabapentin, baclofen, topical lidocaine, and oxcarbazepine. For chronic pain, continue home oxycodone. However, pt would benefit from non narcotic pain management including Tylenol and NSAIDs plus PPI. Pt could seek out nonnarcotic management from pain clinic. For moderate aortic stenosis, no evidence of acute CHF. Continue to follow up outpatient with Cardiology as necessary. For mood disorder, continue lorazepam, duloxetine, and aripiprazole. Is in the process of setting up therapy. Hx of CVA, continue aspirin and statin. For obesity class 2, weight loss encouraged. Time Attestation Discharge Coordination Time (in mins): 45 Quality: Safe Use of Opioids Does Pt have an Active Cancer Diagnosis on the Problem List?: No Quality: Stroke Does the patient have a stroke diagnosis?: No Physical Exam Vital Signs: Vital Signs: Last Vital Signs Temp 98 F 12/25/24 11:45 Pulse 110 H 12/25/24 15:11 Resp 20 12/25/24 15:11 BP 110/60 12/25/24 15:06 Pulse Ox 98 12/25/24 15:06 O2 Del Method Nasal Cannula 12/25/24 11:45 O2 Flow Rate 2 12/25/24 11:45 Oxygen Flow Rate 2 12/21/24 06:26 BMI result Body Mass Index 39.7 General: AOx3, no acute distress Resp: CTA bilaterally though diminished CVS: S1, S2, RRR GI: +BS, NT, no distention Skin: Warm, dry Neuro: Cranial nerves II-XII grossly intact bilaterally. Motor grossly intact bilaterally Extremities: No edema Psych: Calm, cooperative DS: Data Data Completed and Pending Completed studies during hospitalization [Text1]: Procedures Assistance with Respiratory Ventilation, Less than 24 Consecutive Hours, Continuous Positive Airway Pressure (12/01/24) Introduction of Vasopressor into Peripheral Vein, Percutaneous Approach (12/01/24) Labs on day of discharge: Preliminary micro results at discharge 12/21/24 08:29 Blood Culture - Preliminary Blood - Venous No growth after 48 hours. 12/21/24 08:06 Blood Culture - Preliminary Blood - Venous No growth after 48 hours. Discharge Plan Discharge Anticipated Discharge Date/Time: 12/25/24 16:21 Patient Disposition: Home Health Service Discharge Diagnosis: Acute on chronic hypoxic and hypercapnic respiratory failure secondary to acute exacerbation of COPD and Pneumonia Referrals: [facility] [Other] - 1 Week Referral Note: [facility] will call you to discuss your service needs [facility] [Outside] - 3-5 Days Referral Note: [facility] will call you to schedule home nursing and physical therapy appointments Antione Segura PA-C [Primary Care Provider, Internal Medicine] - 1 Week Discharge Medications: New levofloxacin 750 mg tablet 750 mg PO DAILY Qty: 3 0RF Rx Instructions: Take one tablet daily for the next three days, ending 12/28 prednisone 20 mg tablet 40 mg PO DAILY Qty: 6 0RF Rx Instructions: Take two tabs daily (40mg total) for the next three days, ending on 12/28/2024 Continued ipratropium-albuterol 0.5 mg-3 mg(2.5 mg base)/3 mL solution for nebulization 3 ml inhalation Q4H PRN (Reason: for dyspnea) Qty: 180 11RF verapamil 120 mg tablet 120 mg PO BID@050,1999 baclofen 20 mg tablet 20 mg PO TID@0500,1199,1999 benzonatate 100 mg Capsule 100 mg PO TID PRN (Reason: Cough) Qty: 30 0RF Mucus DM 30-600 mg Tablet Extended Release 12 Hr 1 tab PO BID Qty: 20 0RF aripiprazole [Abilify] 5 mg tablet 5 mg PO DAILY sennosides [senna] 8.6 mg Tablet 8.6 mg PO DAILY PRN (Reason: Constipation) acetaminophen 325 mg Tablet 650 mg PO Q6H PRN (Reason: Fever/Pain) oxcarbazepine 300 mg tablet 300 mg PO BID budesonide [Pulmicort] 0.5 mg/2 mL suspension for nebulization 0.5 mg inhalation BID atorvastatin 80 mg tablet 80 mg PO DAILY@1999 mtcsaoawse-xkvuahfztbggg-zrvw 50-325-40 mg tablet 1 tab PO DAILY MRX1 PRN (Reason: Migraine Headache) hyoscyamine sulfate 0.125 mg tablet 0.25 mg PO Q6H PRN (Reason: Abdominal Discomfort) gabapentin 300 mg capsule 1,200 mg PO TID@0500,1199,1999 duloxetine 60 mg capsule,delayed release(DR/EC) 60 mg PO BID@0500,2000 (DME) nebulizer and compressor Device See Rx Instructions .Route Qty: 1 0RF Rx Instructions: As directed albuterol sulfate 90 mcg/actuation HFA aerosol inhaler 2 puff inhalation Q4H PRN (Reason: Shortness Of Breath Or Wheezing) aspirin 81 mg tablet,delayed release (DR/EC) 81 mg PO DAILY@1999 omeprazole 20 mg Capsule,Delayed Release(Dr/Ec) 20 mg PO DAILY@0630 Qty: 0 0RF lidocaine [Lidocaine Pain Relief] 4 % Adhesive Patch,Medicated 1 patch transdermal DAILY Qty: 0 0RF Protocol: Apply to: Apply to: yane lorazepam 0.5 mg tablet 1 mg PO DAILY PRN (Reason: MODERATE Anxiety) 10 Days Qty: 10 0RF oxycodone 5 mg tablet 5 mg PO BID PRN (Reason: Severe Pain (Scale Score 7-10)) Qty: 10 0RF calcium carbonate-vitamin D3 600 mg-5 mcg (200 unit) tablet 1 tab PO DAILY@1999 roflumilast [Daliresp] 500 mcg tablet 500 mcg PO DAILY 30 Days Qty: 30 11RF prazosin 2 mg capsule 2 mg PO DAILY@1999 (DME) Oxygen Home Use Kit See Rx Instructions .Route Rx Instructions: As directed No Action valsartan 40 mg tablet 40 mg PO DAILY Qty: 90 2RF Protocol: Hold for SBP< HOLD for SBP < : 90 Discharge Orders: Discharge Order (Routine); Ordered 12/25/24 Ordered By: Edward Pearce Activity on Discharge: As tolerated Stand Alone Forms: Patient Portal Discharge page Print Language: Palauan Care Plan Goals: Resolution of symptoms, improved breathing Prevention of re-hospitalization Health Concerns: COPD exacerbation CPAP non-compliance Anxiety Plan of Treatment: Complete course of antibitoics: Levofloxacin 750 mg daily x3 days, ending 12/28/2022 Complete short prednisone taper of 40 mg daily x3 days, ending 12/28/2022 Use nebulizer treatment every 4-6 hours while awake as needed Supplemental oxygen as needed You will be discharged with both PT and visiting nurse services Follow up with pulminology for other CPAP delivery options; compliance with CPAP can greatly help respiratory issues and prevent further COPD exacerbations Follow up with PCP in 1 week for routine post-hospitalization visit Establish care with psychiatry/therapist for mental health/anxiety care Assessment: See discharge summary Discharge Date/Time: 12/25/24 17:09
== END 2024-12-25 17:09 | disposition home health service (06) | DRG 139 ==
LOC: HO.ED 11:15 → HO.EDOVER 11:46 → HO.IMC 17:07 → HO.S3 12-23 13:37
PROVIDERS: Emergency Medicine; Student in an Organized Health Care Education/Training Program; Admitting Provider Internal Medicine; Emergency Provider Emergency Medicine; PCP Physician Assistant Surgical; Visit Provider Student in an Organized Health Care Education/Training Program
DX: J18.9 Pneumonia, unspecified organism (principal); J96.21 Acute and chronic respiratory failure with hypoxia; Z99.81 Dependence on supplemental oxygen; J44.1 Chronic obstructive pulmonary disease with (acute) exacerbation; J96.22 Acute and chronic respiratory failure with hypercapnia; E78.5 Hyperlipidemia, unspecified; I10 Essential (primary) hypertension; G50.0 Trigeminal neuralgia; F39 Unspecified mood [affective] disorder; I35.0 Nonrheumatic aortic (valve) stenosis; M54.9 Dorsalgia, unspecified; J44.0 Chronic obstructive pulmonary disease with (acute) lower respiratory infection; G47.33 Obstructive sleep apnea (adult) (pediatric); E66.812 Obesity, class 2; K59.09 Other constipation; Z71.3 Dietary counseling and surveillance; Z68.39 Body mass index [BMI] 39.0-39.9, adult; G89.29 Other chronic pain; Z86.73 Personal history of transient ischemic attack (TIA), and cerebral infarction without residual deficits; Z87.891 Personal history of nicotine dependence; Z79.82 Long term (current) use of aspirin; Z79.899 Other long term (current) drug therapy
CPT/HCPCS: 36415; 71046; 71275; 74177; 80048; 80053; 80076; 80202; 81003; 82533; 82565; 82803; 83605; 83690; 83735; 83880; 84145; 84484; 85025; 85027; 85610; 86140; 87040; 87633; 87637; 94640; 97161; 97530; 99285; J0131; J0692; J1200; J1650; J1938; J2919; J3373; J3374; J7120; P9047; Q9967

== ENCOUNTER → 2024-12-21 09:04 | Outpatient (BNV) | payer BC, SELFPAY | PROVIDERS: Emergency Provider Emergency Medicine; Visit Provider Radiology Diagnostic Radiology | DX: N20.0 Calculus of kidney (principal); R91.1 Solitary pulmonary nodule; R05.9 Cough, unspecified | CPT/HCPCS: 71046; 71275; 74177 ==

== ENCOUNTER → 2024-12-21 11:12 | Outpatient (BNV) | payer BC, SELFPAY | PROVIDERS: Admitting Provider Internal Medicine; Emergency Provider Emergency Medicine; PCP Physician Assistant Surgical; Visit Provider Physician Assistant Surgical | DX: K59.00 Constipation, unspecified (principal) | CPT/HCPCS: 99232; 99254 ==

== ENCOUNTER → 2024-12-21 11:12 | Outpatient (BNV) | payer BC, SELFPAY | PROVIDERS: Admitting Provider Internal Medicine; Emergency Provider Emergency Medicine; Visit Provider Internal Medicine | DX: K59.00 Constipation, unspecified (principal); J96.21 Acute and chronic respiratory failure with hypoxia; J96.22 Acute and chronic respiratory failure with hypercapnia; J98.4 Other disorders of lung | CPT/HCPCS: 99223; 99233; 99499 ==

== ENCOUNTER 2025-01-04 12:00 | Inpatient (IN) | payer BC, SELFPAY ==
[2025-01-04] VITALS (11 sets, daily range): BP systolic 137–168; BP diastolic 57–85; PULSE 82–96; RESP 18–26; TEMP 36.1–36.9; O2SAT 90–99; BMI 40.9
--- NOTE | ~2025-01-04 | XR_ITS ---
EXAMINATION: XR CHEST CLINICAL INFORMATION: Shortness of breath COMPARISON: December 21, 2024 TECHNIQUE: Frontal view of the chest was obtained. FINDINGS: Lungs are clear and well aerated. Heart size is normal. XR/XR chest 1V IMPRESSION: No acute disease Electronically signed by: Deric Meeks MD 01/04/2025 01:07 PM EDT RP
--- NOTE | 2025-01-04 12:12 | ECG_ITS ---
Test Reason : sob Blood Pressure : */* mmHG Vent. Rate : 84 BPM Atrial Rate : 84 BPM P-R Int : 130 ms QRS Dur : 92 ms QT Int : 372 ms P-R-T Axes : 49 60 24 degrees QTcB Int : 439 ms Normal sinus rhythm Normal ECG When compared with ECG of 07-Dec-2024 21:23, No significant change was found Referred By: Mariam Lopez Electronically Signed By: Eladio Nelson
--- NOTE | 2025-01-04 12:15 | ED.SOB ---
HPI - SOB/Dyspnea General Chief Complaint: Dyspnea Stated Complaint: SOB,H/O COPD PER EMS Time Seen by Provider: 01/04/25 12:05 Source: patient, EMS and old records reviewed Mode of arrival: EMS Limitations: no limitations History of Present Illness ED Provider: DR. Lopez HPI Narrative: 59-year-old female former smoker with PMH significant for COPD use supplemental oxygen 1-3 L at home, quit smoking 7 months ago, supposed to use CPAP at night time patient reported she can not tolerated because it exaggerate her facial trigeminal neuralgia condition HLD, CVA, moderate , had a recent to admission this month for similar presentation of shortness of breath, productive coughing. Related Data Home Medications ?Medication ?Instructions ?Recorded ?Confirmed atorvastatin 80 mg tablet 80 mg PO DAILY@199903/04/23 12/21/24 cpicdkjcnb-efecmmzqqscoi-foyydnjz 1 tab PO DAILY MRX1 PRN Migraine 03/04/23 12/21/24 50 mg-325 mg-40 mg tablet Headache duloxetine 60 mg capsule,delayed 60 mg PO BID@050,199903/04/23 12/21/24 release gabapentin 300 mg capsule 1,200 mg PO TID@0500,1200,199903/04/23 12/21/24 hyoscyamine sulfate 0.125 mg tablet 0.25 mg PO Q6H PRN Abdominal 03/04/23 12/21/24 Discomfort Oxygen Home Use 04/16/23 10/29/24 prazosin 2 mg capsule 2 mg PO DAILY@199904/16/23 12/21/24 albuterol sulfate 90 mcg/actuation 2 puff inhalation Q4H PRN 01/31/24 12/21/24 aerosol inhaler Shortness Of Breath Or Wheezing aspirin 81 mg tablet,delayed 81 mg PO DAILY@199905/22/24 12/21/24 release calcium 600 mg (as 1 tab PO DAILY@199906/20/24 12/21/24 carbonate)-vitamin D3 5 mcg (200 unit) tablet verapamil 120 mg tablet 120 mg PO BID@0500,199907/02/24 12/21/24 baclofen 20 mg tablet 20 mg PO TID@0500,1200,199910/29/24 12/21/24 aripiprazole 5 mg tablet (Abilify) 5 mg PO DAILY 12/01/24 12/21/24 acetaminophen 325 mg tablet 650 mg PO Q6H PRN Fever/Pain 12/21/24 12/21/24 budesonide 0.5 mg/2 mL suspension 0.5 mg inhalation BID 12/21/24 12/21/24 for nebulization (Pulmicort) oxcarbazepine 300 mg tablet 300 mg PO BID 12/21/24 12/21/24 sennosides 8.6 mg tablet (senna) 8.6 mg PO DAILY PRN Constipation 12/21/24 12/21/24 Previous Rx's ?Medication ?Instructions ?Recorded nebulizer and compressor #1 ea 12/16/23 ipratropium 0.5 mg-albuterol 3 mg 3 ml inhalation Q4H PRN for 03/02/24 (2.5 mg base)/3 mL nebulization dyspnea #180 mL soln roflumilast 500 mcg tablet 500 mcg PO DAILY 30 days #30 tabs 10/06/24 (Daliresp) benzonatate 100 mg capsule 100 mg PO TID PRN Cough #30 caps 10/31/24 dextromethorphan-guaifenesin 30 1 tab PO BID #20 tabs 10/31/24 mg-600 mg tablet extended hr (Mucus DM) lidocaine 4 % topical patch 1 patch transdermal DAILY #0 ea 12/13/24 (Lidocaine Pain Relief) lorazepam 0.5 mg tablet 1 mg (2 x 0.5 mg) PO DAILY PRN 12/13/24 MODERATE Anxiety 10 days #10 tabs omeprazole 20 mg capsule,delayed 20 mg PO DAILY@0630 #0 caps 12/13/24 release oxycodone 5 mg tablet 5 mg PO BID PRN Severe Pain (Scale 12/13/24 Score 7-10) #10 tabs levofloxacin 750 mg tablet 750 mg PO DAILY #3 tabs 12/25/24 prednisone 20 mg tablet 40 mg (2 x 20 mg) PO DAILY #6 tabs 12/25/24 valsartan 40 mg tablet 40 mg PO DAILY #90 tabs 12/26/24 Allergies Allergy/AdvReac Type Severity Reaction Status Date / Time Iodinated Contrast Media (IV Allergy Intermediate HIVES Verified 01/04/25 12:15 CONTRAST) latex (LATEX) Allergy Unknown RASH Verified 01/04/25 12:15 adhesive tape Allergy Rash Verified 01/04/25 12:15 morphine (MORPHINE) AdvReac Unknown VOMITING Verified 01/04/25 12:15 Review of Systems Review of Systems: All other systems are reviewed and are negative Constitutional: Reports as per HPI and Reports no additional constitutional complaints Eyes: Reports as per HPI and Reports no additional eye complaints Reports system reviewed and no additional complaints, except as documented Cardiovascular: Reports as per HPI and Reports no additional cardiovascular complaints Respiratory: Reports as per HPI and Reports no additional respiratory complaints Gastrointestinal: Reports as per HPI and Reports no additional gastrointestinal complaints Genitourinary: Reports no additional female genitourinary complaints Musculoskeletal: Reports no additional musculoskeletal complaints Skin/Breast: Reports system reviewed and no additional complaints, except as docu Psychiatric: Reports no additional psychiatric complaints Endocrine: Reports no additional endocrine complaints Hematologic/Lymphatic: Reports no additional hematologic/lymphatic complaints Allergic/Immunologic: Reports no additional allergic/immunologic complaints Reports system reviewed and no additional complaints, except as documented and Reports Abnormal speech present [facility] Past Medical History Medical History Leukocytosis Chronic lung disease Chronic lung disease Hypoxia Panic disorder Hypertension Chronic hypercapnic respiratory failure Aortic stenosis Obesity (BMI 30-39.9) Asthma Acute exacerbation of chronic obstructive pulmonary disease Chronic lung disease Hypogammaglobulinemia Smoker JUANITO (obstructive sleep apnea) Allergies Elevated troponin COPD (chronic obstructive pulmonary disease) Trigeminal neuralgia Pulmonary nodules Mixed hyperlipidemia Peripheral neuropathy Tobacco use disorder Mood disorder Surgical History History of esophagogastroduodenoscopy (EGD) History of colonoscopy History of lumbar discectomy History of tubal ligation History of excision of mass History of shoulder surgery Social History Social History Household Members: Family Household Members Other:: dog Housing: House Do you presently have visiting nurse or other home services: Yes Alcohol intake: never Comment: room assignment pending Patient Tobacco Use Status: Former Tobacco user Tobacco use type: Cigarette Cigarette Packs Per Day: 4 Cigarettes Per Day: 80.0 Years Smoked: 40 Smoked in Last 30 Days: No e-Cigarette/Vaping Use: Never Used Second Hand Smoke Exposure: No Use of substances other than those prescribed or required for medical reasons: No Substance Use Type: Marijuana Advance Directives: Yes Advance Directives on File: Yes Advance Directives Date on File: 03/09/23 Do you have a plan to hurt others: No Plan Patient : No service: No Physical Exam Vital Signs: Vital Signs: Last Vital Signs Temp 97.7 F 01/04/25 15:03 Pulse 82 01/04/25 15:03 Resp 18 01/04/25 15:03 BP 146/62 H 01/04/25 15:03 Pulse Ox 95 01/04/25 15:03 O2 Del Method Nasal Cannula 01/04/25 15:03 O2 Flow Rate 2 01/04/25 15:03 BMI result Body Mass Index 40.9 Vital signs have been reviewed and appear to be correct. Blood pressure elevated. Heart rate normal. Respiratory rate normal. Temperature normal. Oxygen saturation normal. Appearance: Alert. Oriented X3. No acute distress. Head: Normal external exam. Normocephalic. Atraumatic. No Castano signs noted. No raccoon eyes noted Eyes: PERRLA. EOMI. Conjunctiva and sclera normal. Eyelids normal. ENT: TM's Normal. Pharynx normal. Uvula midline. Moist mucous membranes. No trismus noted. No drooling noted. No muffled voice noted. Neck: Normal inspection. Neck supple. FROM. No adenopathy. Thyroid Normal. No meningeal signs. No neck mass noted. CVS: Normal heart rate and rhythm. Heart sound normal. No murmurs noted. Pulses normal throughout. Respiratory: No respiratory distress. Painless inspiration. Breath sounds normal. Diffuse expiratory wheezing with prolonged expiration and decreased breathing sounds bilaterally, Chest nontender. No accessory muscle usage noted or decreased air movement noted. Abdomen: Soft and nontender. Bowel sounds normal in all 4 quadrants. No distention noted. No organomegaly noted. No visible injury noted. Back: No CVA tenderness. Full range of motion noted. Skin: Skin warm and dry. Normal skin color. Normal skin turgor. No rashes/lesions/lacerations noted. Extremities: No lower extremity edema. Extremities exhibit normal range of motion. Extremities nontender. Neuro: Oriented X 3. Cranial nerve exam: II-XII are grossly intact No motor deficit. No sensory deficit. Reflexes normal. Course Reevaluation(s) Reevaluation #1: 59-year-old female history of COPD, multiple hospitalization for COPD exacerbation presented with difficulty breathing. Patient feels little better with bronchodilator, Solu-Medrol. Admit for further respiratory support. Time: 16:18 Medications Administered Discontinued Medications Generic Name Dose Route Start Last Admin Trade Name Katya PRN Reason Stop Dose Admin Albuterol Sulfate 2.5 mg/ 0 mg 01/04/25 12:26 01/04/25 12:33 Albuterol/Ipratropium 3 ml INHALE 01/04/25 12:27 1 dose ONCE ONE Administration Magnesium Sulfate 2 gm in 50 mls @ 25 mls/hr 01/04/25 12:12 01/04/25 15:06 Magnesium Sulfate/H2o IV 01/04/25 14:11 Infused ONCE ONE Infusion Methylprednisolone Sodium Succinate 125 mg 01/04/25 12:12 01/04/25 12:54 Methylprednisolone Sod Succ 125 Mg/2 Ml Vial IVPUSH 01/04/25 12:13 125 mg ONCE ONE Administration Oxycodone HCl 5 mg 01/04/25 14:56 01/04/25 15:04 Oxycodone Hcl Immed Release 5 Mg Tablet PO 01/04/25 14:57 5 mg ONCE ONE Administration Medical Decision Making Differential Diagnosis Differential Diagnoses: The differential diagnosis associated with the presentation includes (COPD exacerbation, acute on chronic respiratory failure, hypoxia, hypercarbia, pneumonia, pneumothorax, pleural effusion, anemia, electrolyte derangement.) Admission/Observation Consideration of admission/observation: Escalation of care including admission/observation considered Consult Healthcare Provider Management of the patient was discussed with: Hospitalist (Dr. Bolton) Lab Data MDM Lab Attestation statement: I reviewed the patient's lab results. 01/04/25 12:45 01/04/25 12:44 Labs: Lab Results 01/04/25 01/04/25 01/04/25 Range/Units 12:44 12:45 13:53 WBC 7.6 (4.8-10.8) X10*3/uL RBC 3.31 L (4.20-5.50) X10*6/uL Hgb 10.8 L (12.0-16.0) g/dl Hct 32.6 L (37.0-47.0) % MCV 98.5 H (80.0-98.0) fL MCH 32.6 (27.0-33.0) pg MCHC 33.1 (31.0-35.0) g/dl RDW 14.2 (11.0-16.0) % Plt Count 352 (160-400) X10*3/uL MPV 8.8 L (9.4-12.3) fL Immature Gran % (Auto) 0.4 (0.0-0.4) % Neut % (Auto) 71.0 (45-73) % Lymph % (Auto) 13.9 L (20-40) % Evangeline % (Auto) 9.8 (2-11) % Eos % (Auto) 4.6 H (0-4) % Baso % (Auto) 0.3 (0-2) % Lymph # (Auto) 1.1 L (1.2-4.9) X10*3/uL Evangeline # (Auto) 0.8 (0.1-1.2) X10*3/uL Eos # (Auto) 0.4 (0.0-0.4) X10*3/uL Baso # (Auto) 0.0 (0.0-0.2) X10*3/uL Abs Immat Gran (auto) 0.03 (0.00-0.03) X10*3/uL Absolute Neuts (auto) 5.4 (2.0-8.3) x10*3/uL Absolute Nucleated RBC 0.000 (0.0-0.012) X10*3/uL Nucleated RBC % (auto) 0.0 (0.0-0.2) /100WBC PT 10.7 L (10.9-12.4) SEC INR 0.9 (0.9-1.1) O2 Saturation 99.0 % ABG pH at Pt Temp 7.46 H (7.35-7.45) ABG pCO2 at Pt Temp 43 (32-45) mmHg ABG pO2 at Pt Temp 97 (83-108) mmHg ABG HCO3 31 H (22-26) mmol/L ABG Base Excess (Actual) 6.6 mmol/L VBG pH (7.32-7.43) VBG pCO2 mmHg VBG pO2 mmHg VBG HCO3 (22-26) mmol/L VBG O2 Saturation % VBG Base Excess mmol/L Sodium 144 (135-145) mmol/L Potassium 3.6 (3.3-5.1) mmol/L Chloride 107 (96-108) mmol/L Carbon Dioxide 28 (22-29) mmol/L Anion Gap 13 (12-20) BUN 5 L (9-16) mg/dL Creatinine 0.72 (0.5-1.4) mg/dL Estim Creat Clear Calc 88.0 Estimated GFR > 60 Random Glucose 118 H (60-115) mg/dL Lactic Acid 1.6 (0.5-2.0) mmol/L Calcium 9.6 (8.4-10.2) mg/dL Total Bilirubin 0.3 (0.0-1.0) mg/dL Direct Bilirubin 0.1 (0.0-0.5) mg/dL AST 24 (5-31) U/L ALT 15 (0-31) U/L Alkaline Phosphatase 60 (39-117) U/L Troponin I High Sens 8.6 (<3.5-17.0) ng/L B-Natriuretic Peptide 63 (<100) pg/mL Total Protein 6.3 L (6.5-8.0) g/dL Albumin 4.1 (3.5-5.0) g/dL Lipase 16 (8-78) U/L Urine Color Urine Appearance Urine pH (5.0-9.0) Ur Specific [place] (1.005-1.025) Urine Protein (Neg-Trace) mg/dL Urine Glucose (UA) (Negative) mg/dL Urine Ketones (Negative) mg/dL Urine Blood (Negative) Urine Nitrite (Negative) Ur Leukocyte Esterase (Negative) Influenza Type A (PCR) NEGATIVE (Negative) Influenza Type B (PCR) NEGATIVE (Negative) RSV RNA Qual (PCR) NEGATIVE (Negative) SARS-CoV-2 RNA (RT-PCR) NEGATIVE (Negative) 01/04/25 01/04/25 Range/Units 13:55 15:57 WBC (4.8-10.8) X10*3/uL RBC (4.20-5.50) X10*6/uL Hgb (12.0-16.0) g/dl Hct (37.0-47.0) % MCV (80.0-98.0) fL MCH (27.0-33.0) pg MCHC (31.0-35.0) g/dl RDW (11.0-16.0) % Plt Count (160-400) X10*3/uL MPV (9.4-12.3) fL Immature Gran % (Auto) (0.0-0.4) % Neut % (Auto) (45-73) % Lymph % (Auto) (20-40) % Evangeline % (Auto) (2-11) % Eos % (Auto) (0-4) % Baso % (Auto) (0-2) % Lymph # (Auto) (1.2-4.9) X10*3/uL Evangeline # (Auto) (0.1-1.2) X10*3/uL Eos # (Auto) (0.0-0.4) X10*3/uL Baso # (Auto) (0.0-0.2) X10*3/uL Abs Immat Gran (auto) (0.00-0.03) X10*3/uL Absolute Neuts (auto) (2.0-8.3) x10*3/uL Absolute Nucleated RBC (0.0-0.012) X10*3/uL Nucleated RBC % (auto) (0.0-0.2) /100WBC PT (10.9-12.4) SEC INR (0.9-1.1) O2 Saturation % ABG pH at Pt Temp (7.35-7.45) ABG pCO2 at Pt Temp (32-45) mmHg ABG pO2 at Pt Temp (83-108) mmHg ABG HCO3 (22-26) mmol/L ABG Base Excess (Actual) mmol/L VBG pH 7.42 (7.32-7.43) VBG pCO2 45 mmHg VBG pO2 125 mmHg VBG HCO3 30 H (22-26) mmol/L VBG O2 Saturation 100.0 % VBG Base Excess 4.9 mmol/L Sodium (135-145) mmol/L Potassium (3.3-5.1) mmol/L Chloride (96-108) mmol/L Carbon Dioxide (22-29) mmol/L Anion Gap (12-20) BUN (9-16) mg/dL Creatinine (0.5-1.4) mg/dL Estim Creat Clear Calc Estimated GFR Random Glucose (60-115) mg/dL Lactic Acid (0.5-2.0) mmol/L Calcium (8.4-10.2) mg/dL Total Bilirubin (0.0-1.0) mg/dL Direct Bilirubin (0.0-0.5) mg/dL AST (5-31) U/L ALT (0-31) U/L Alkaline Phosphatase (39-117) U/L Troponin I High Sens (<3.5-17.0) ng/L B-Natriuretic Peptide (<100) pg/mL Total Protein (6.5-8.0) g/dL Albumin (3.5-5.0) g/dL Lipase (8-78) U/L Urine Color Yellow Urine Appearance Cloudy Urine pH >= 9.0 (5.0-9.0) Ur Specific [place] 1.010 (1.005-1.025) Urine Protein Negative (Neg-Trace) mg/dL Urine Glucose (UA) Negative (Negative) mg/dL Urine Ketones Negative (Negative) mg/dL Urine Blood Negative (Negative) Urine Nitrite Negative (Negative) Ur Leukocyte Esterase Negative (Negative) Influenza Type A (PCR) (Negative) Influenza Type B (PCR) (Negative) RSV RNA Qual (PCR) (Negative) SARS-CoV-2 RNA (RT-PCR) (Negative) Independent Interpretation I performed an independent interpretation of an: Plain X-Ray (Chest: No acute intrathoracic pathology.) Radiology Impression Discussion of test interpretation with radiology: I have reviewed the radiologist's reading. Chronic Conditions Patient?s care impacted by: Other (COPD.) Critical Care Time Critical Care Time Critical Care Time: Yes Total Critical Care Time: 60 Attestation: The patient was critically ill with a high probability of imminent or life-threatening deterioration. I spent greater than 30 minutes of discontinuous time evaluating the patient, delivering critical care at the bedside, discussing evaluating data with consultants. Critical care time does not include time spent performing separately billable procedures or teaching. Time spent performing critical care was 60 minutes. Discharge Plan Discharge Clinical Impression: COPD exacerbation Patient Disposition: Admitted As Inpatient Print Language: Armenian
[2025-01-04] MEDS: Albuterol Sulfate 2.5 MG, Albuterol/Iprat 2.5/0.5MG 3 ML 3 ML INHALE ×2 (12:33→16:42)
[2025-01-04 12:49] LABS: MANUAL DIFF FLAG NO
[2025-01-04 12:50] LABS: Hematocrit 32.6 % (37.0-47.0); Hemoglobin 10.8 g/dl (12.0-16.0); Imm Gran Abs Auto 0.03 X10*3/uL (0.00-0.03); Imm Gran Pct Auto 0.4 % (0.0-0.4); Lymphocytes Absolute Auto 1.1 X10*3/uL (1.2-4.9); Mean Corpuscular HGB Conc 33.1 g/dl (31.0-35.0); Mean Corpuscular Hemoglobin 32.6 pg (27.0-33.0); Mean Corpuscular Volume 98.5 fL (80.0-98.0); NRBC Abs Auto 0.000 X10*3/uL (0.0-0.012); NRBC Pct Auto 0.0 /100WBC (0.0-0.2); Platelet Count 352 X10*3/uL (160-400); Red Blood Count 3.31 X10*6/uL (4.20-5.50); White Blood Count 7.6 X10*3/uL (4.8-10.8)
[2025-01-04] MEDS: Magnesium Sulfate/H2O 2 GM/50 ML PIGGYBACK IV (12:53)
[2025-01-04 12:59] LABS: INTERNATIONAL NORM RATIO 0.9 (0.9-1.1); Prothrombin Time 10.7 SEC (10.9-12.4)
[2025-01-04 13:08] LABS: Alanine Aminotransferase 15 U/L (0-31); Albumin Level 4.1 g/dL (3.5-5.0); Alkaline Phosphatase 60 U/L (39-117); Anion Gap 13 (12-20); Aspartate Amino Transferase 24 U/L (5-31); Blood Urea Nitrogen 5 mg/dL (9-16); Calcium 9.6 mg/dL (8.4-10.2); Carbon Dioxide 28 mmol/L (22-29); Chloride 107 mmol/L (96-108); Creatinine Clr Calc Pharmacy 88.0; Estimated Glomerular Filt Rate > 60; Lipase 16 U/L (8-78); Potassium 3.6 mmol/L (3.3-5.1); Sodium 144 mmol/L (135-145); Total Protein 6.3 g/dL (6.5-8.0)
[2025-01-04 13:14] LABS: B Type Natriuretic Peptide 63 pg/mL (<100)
[2025-01-04 13:15] LABS: Troponin-I High Sensitivity 8.6 ng/L (<3.5-17.0)
--- OUTSIDE RECORDS SUMMARY | 2025-01-04 13:18 | XMS_ITS | Data Portability ---
Author Organization [facility], Main Office Address [address] [facility] [address] [place] [address] Care Team Providers Care Work Car Operator Name Role Phone CAREONE (NONO UNIT) OTHER MILES DAVIS Primary Care Provider Assessment No assessment recorded. Plan of Treatment Reminders Order Date Submit Date Provider Last Modified By Organization Details Last Modified Time Details Appointments None record ed. Lab None record ed. Referral None record ed. Procedures None record ed. Surgeries None record ed. Imaging None record ed. Medication Orders None record ed. Patient TargetsNo targets recorded. Patient InstructionsNo instructions recorded. Reason for Referral None Reported. Problems Name Problem SNOMED Code Status Onset Date Resolution Date Notes Provider Name and Address Organization Details Recorded Time Obesity 458379009 Active 2024 Not Available [facility] 21:47:07 Obstructive sleep apnea syndrome 06628205 Active 2024 Not Available [facility] 21:46:21 Gastroesophag eal reflux disease without esophagitis 261556310 Active 2024 Not Available [facility] 21:46:03 Migraine 87943457 Active 2024 Not Available [facility] 21:46:00 Congestive heart failure 89852540 Active 2024 Not Available [facility] 21:36:02 Chronic pain 25271156 Active 2024 Not Available [facility] 21:38:53 Anxiety disorder 282629039 Active 2024 Not Available [facility] 07/03/202 5 21:45:57 Recurrent major depression 43957551 Active 2024 Not Available [facility] 5 21:45:58 Cervico-occip ital neuralgia 82131304 Active 2024 Not Available [facility] 5 21:46:02 Pulmonary emphysema 82921837 Active [address], [address], [place], [address] , [facility] 5 13:35:33 Chronic obstructive pulmonary disease 64968088 Active [address], [address], [place], [address] , [facility] 5 13:36:09 Essential hypertension 43104964 Active [address], [address], [place], [address] , [facility] 5 13:36:17 Mixed hyperlipidemi a 293938954 Active [address], [address], [place], [address] , [facility] 5 13:36:22 History of calculus of kidney 767974938 Active [address], [address], [place], [address] , [facility] 5 13:36:31 History of cerebrovascul ar accident 175003000 Active [address], [address], [place], [address] , [facility] 5 13:36:42 Moderate aortic valve stenosis 094550231 Active [address], [address], [place], [address] , [facility] 5 13:37:10 Trigeminal neuralgia 17179518 Active [address], [address], [place], [address] , [facility] 5 13:37:19 Cervico-occip ital neuralgia 80221810 Active [address], [address], [place], [address] , [facility] 5 13:37:27 Chronic pain syndrome 342266411 Active [address], [address], [place], [address] , [facility] 5 13:37:38 Mixed anxiety and depressive disorder 269212471 Active 2024 BUDDY LORD [address], [address], [place], [address] , [facility] 5 13:37:56 Urinary incontinence 361827684 Active [address]UDDY [address], [address], [place], [address] , [facility] 5 13:38:03 Low blood pressure 68616466 Active [address], [address], [place], [address] , [facility] 5 13:43:22 Osteoporosis 03119799 Active 2024 BUDDY [address] , [address], [place], [address] , [facility] 5 13:55:15 Problem Notes None recorded. Procedures Surgical History Date Name Laterality Status Provider Name and Address Organization Details Recorded Time esophagogastroduodenoscopy completed BUDDY [facility] [address], [address], [place], [address], [facility] 5 13:38:59 biopsy of colon completed BUDDY [facility] [address], [address], [place], [address], [facility] 5 13:39:08 excision of lumbar intervertebral disc completed BUDDY LORD [address], [address], [place], [address], [facility] 5 13:39:47 ligation of fallopian tube completed BUDDY [facility] [address], [address], [place], [address], [facility] 5 13:40:01 operative procedure on shoulder completed BUDDY LORD [address] [facility], [address], [place], [address], [facility] 5 13:40:09 Imaging Results None recorded. Procedure Notes None recorded. Medical Equipment None Reported. Allergies Allergen ID Allergen Name Allergen Category Reaction Reaction Severity Criticality Documentation Date Start Date Code Code System Note Provider Name and Address Organization Details Recorded Time 40621 morphine medicatio n Not available Not available Not available 12/13/20242024 7052 RxNoyolie Jacobo MD [address] [place] [address], [address], [place], [address], [facility] 5 16:31:18 80717 latex environme nt,medica tion Not available Not available Not available 12/13/20242024 67449 91 RxNoyolie Jacobo MD [address] [place] [address], [address], [place], [address], [facility] 5 16:31:21 50138 Iodinated contrast media (substanc e) medicatio n hives Not available Not available 12/13/20242016 10317 2004 XU Jacobo MD [address] [facility], [address], [place], [address], [facility] 5 16:31:03 87101 adhesive tape environme nt,medica tion Not available Not available Not available 12/13/20242024 14103 UNK Not Available [facility] 5 14:22:57 36570 Latex (substanc e) environme nt,medica tion rash Not available low 12/18/20242016 33264 8007 XU Jacobo MD [address] [facility], [address], [place], [address], [facility] 5 16:31:06 39772 morphine sulfate medicatio n itching Not available Not available 12/18/20241999 25251 RxNorm Perla Jacobo MD [address], [address], [place], [address], [facility] 5 16:31:09 98231 procaine hydrochlo ride medicatio n other Not available Not available 12/18/20241999 55783 8 RxNorm Hives -nova saad Jacobo MD [address] [facility], [address], [place], [address], [facility] 5 16:31:12 Medications Name Sig Start Date Stop Date Status Note LastModified by Organization Details LastModified Time atorvastati n 80 mg tablet Give 1 tablet by mouth at bedtime for cholester ol 2024 active Not Available Not Available Not Avai lable acetaminoph en 325 mg tablet Give 2 tablet by mouth every 6 hours as needed for Pain Do not exceed 3 grams in 24 hours.Tot al 650 mg AND Give 2 tablet by mouth every 6 hours as needed for Elevated temp >101 Do not exceed 3 grams in 24 hours.Tot al 650 mg 2024 active Not Available Not Available Not Avai lable Lioresal 20 mg tablet Give 1 tablet by mouth three times a day for muscle spasms May cause drowsines s, avoid alcohol 2024 active Not Available Not Available Not Avai lable oxcarbazepi ne 300 mg tablet Give 1 tablet by mouth three times a day for anticonvu lsant 2024 active Not Available Not Available Not Avai lable verapamil 120 mg tablet Give 1 tablet by mouth two times a day for HTN 2024 active Not Available Not Available Not Avai lable lorazepam 0.5 mg tablet Give 1 tablet by mouth every 24 hours as needed for anxiety until 5 07:00 12/27 completed Not Available Not Available Not Available benzonatate 100 mg capsule Give 1 capsule by mouth every 8 hours as needed for cough 2024 active Not Available Not Available Not Avai lable hyoscyamine sulfate 0.125 mg tablet Give 1 tablet by mouth every 6 hours as needed for abdominal discomfor t 2024 active Not Available Not Available Not Avai lable budesonide 0.5 mg/2 mL suspension for nebulizatio n 1 vial inhale orally via nebulizer two times a day for COPD Rinse mouth after use 2024 active Not Available Not Available Not Avai lable lorazepam 1 mg tablet Give 1 tablet by mouth one time only for Increased Anxiety until 04:27 Ok for 1-time Override to give this one-time extra PRN Dose in 24Hrs being given Now 12/20 completed Not Available Not Available Not Available Laxative (sennosides ) 8.6 mg tablet Give 1 tablet by mouth every 24 hours as needed for Constipat ion 2024 active Not Available Not Available Not Avai lable Fioricet 50 mg-325 mg-40 mg tablet Give 1 tablet by mouth every 12 hours as needed for headache 2024 active Not Available Not Available Not Avai lable prazosin 2 mg capsule Give 1 capsule by mouth at bedtime for HTN 2024 active Not Available Not Available Not Avai lable oxycodone 5 mg tablet Take 5 mg twice a day by oral route as needed. 2024 active Not Available Not Available Not Avai lable valsartan 40 mg tablet Give 1 tablet by mouth one time a day for HTN HOLD FOR SBP<90 2024 active Not Available Not Available Not Avai lable Abilify 5 mg tablet Give 1 tablet by mouth one time a day for antipsych otic May cause drowsines s, avoid alcohol 2024 active Not Available Not Available Not Avai lable duloxetine 60 mg capsule,del ayed release Give 1 capsule by mouth two times a day for depressio n 2024 active Not Available Not Available Not Avai lable roflumilast 500 mcg tablet Give 1 tablet by mouth in the morning for RESP 2024 active Not Available Not Available Not Avai lable sodium phosphates 19 gram-7 gram/197 mL enema Insert 1 unit rectally every 24 hours as needed for Constipat ion Use only if Bisacodyl Supposito ry is ineffecti ve 2024 active Not Available Not Available Not Avai lable Acid Salon Leader (omeprazole ) 20 mg capsule,del ayed release Give 1 capsule by mouth one time a day for gerd 2024 active Not Available Not Available Not Avai lable Lidocaine Pain Relief 4 % topical patch Apply to Left side of face topically one time a day for Pain Managemen t Apply for 12 Hours in a 24 Hour period. Max dose = 3 patches. External use only. 2024 active Not Available Not Available Not Avai lable Maxi-Tuss AC 10 mg-100 mg/5 mL oral liquid Give 10 ml by mouth every 6 hours as needed for cough 2024 active Not Available Not Available Not Avai lable aspirin 81 mg capsule Give 1 capsule by mouth one time a day for blood thinner 2024 active Not Available Not Available Not Avai lable OneLAX Bisacodyl 10 mg rectal suppository Insert 1 supposito ry rectally every 24 hours as needed for constipat ion Use if Senna is Ineffecti ve 2024 active Not Available Not Available Not Avai lable Vitals Date Recorded Heart rate Respiratory rate Body temperature Body height Body mass index (BMI) Body weight Oxygen saturation Oxygen saturation in Arterial blood by Pulse oximetry Systolic And Diastolic Provider Name and Address Organization Details Last Updated DateTime 5 70 /min 18 /min 97.5 [degF] 154.94 cm 39.5 kg/m2 20641.8 1 g 97 % 97 % 164/72 mm[Hg] Perla Jacobo MD [address] [facility], [address], [place], [address], [facility] 5 20:04:19 Social History Question Answer Notes LastModified by Organizat ion Details LastModified Time Tobacco Smoking Status Former Smoker smoked 3+ ppd Perla Jacobo MD [address] [facility], [address], [place], [address], [facility] 12/19/2024 20:36:29 Do You Have An Advance Directive? Yes Information not available 12/19/2024 What Is Your Code Status? Full Code Information not available 12/19/2024 Which Illicit Or Recreational Drugs Have You Used? Marijuana Information not available 12/14/2024 Where Do You Live? Condo With . 2 Stories, But Stays On 1st Floor. 1 Step To Enter Information not available 12/19/2024 Legal Guardian? No Informati on not available 12/19/2024 Do You Have A Medical Power Of Glaze Mixer? Yes Information not available 12/19/2024 What Was The Date Of Your Most Recent Tobacco Screening? 12/19/2024 Information not available 12/19/2024 Do You Have An Out Of Hospital DNR? No Information not available 12/19/2024 What Is Your Relationship Status? Information not available 12/19/2024 How Much Tobacco Do You Smoke? No Information not available 12/19/2024 Has Tobacco Cessation Counseling Been Provided? No Information not available 12/14/2024 How Many Years Have You Smoked Tobacco? 40 Information not available 12/14/2024 Have You Used IV Drugs? No Information not available 12/19/2024 Sex: Unknown Functional Status Question Answer Note LastModified by Organizat ion Details LastModified Time Do you use any illicit or recreational drugs? Yes Information not available 12/14/2024 Do you or have you ever used any other forms of tobacco or nicotine? Yes Information not available 12/14/2024 What is your level of alcohol consumption? None Information not available 12/14/2024 Do you or have you ever used smokeless tobacco? Never used smokeless tobacco Information not available 12/14/2024 Do you or have you ever used e-cigarettes or vape? Current user of electronic cigarettes Information not available 12/14/2024 Mental Status None recorded. Family History Nothing Reported Notes:n/c Medical History No medical history recorded. Gynecological HistoryNo gynecological history recorded. Obstetrics History GPAL:G 0 P 0 0 0 0 Past Encounters Encounter ID Performer Location Encounter Start Date Encounter Closed Date Diagnosis/Indication Diagnosis SNOMED-CT Code Diagnosis ICD10 Code Diagnosis Note [id number] BUDDY LORD [place] at [facility] on [address] [place] [address] 12/14/2024 12:53:39 12/18/2024 12:27:53 Chronic obstructive pulmonary disease 72942243 J44.9 budesonide 2mL Neb bidprednis one 40 mg qdalbutero l 9mcg 2 puffs prn [id number] natate 100mg tidcodeine -guaifenes in 10/100mg 10ml [id number] pium-albut jose 3ml via neb q4h prnmucus DM 30-600 bidroflumi last 500 mcg qdmonitor respirator y status Chronic pain syndrome 37 0766538 G89.4 lidocaine patch 4% qdbaclofen 20mg tidgabapen tin 300mg tidoxycodo ne 5mg bid prnmonitor patients pain level Gastroesop hageal reflux disease without esophagitis 978322825 K21.9 omeprazole 20mg qdhyoscyam ine sulf 0.125mg q6h Essential hypertension 10087981 I10 valsartan 40 mg qdaspirin 81 mg qdprazosin 2 mg qdverapami l 120mg bid Mixed anxi ety and depressive disorder 112317736 F41.9 F32.A aripiprazo le 5mg qdduloxeti ne 60mg bidlorazep am 1 mg qd prnmonitor moodpatien t will have a psych consult. Mixed hyperlipidemia 267 701253 E78.2 atorvastat in 80mg qhs Migraine 33146822 G43.90 9 butalbital -acetamino phen-caff 50-325-40 prnoxcarba zepine 300 mg tidmonitor patient for symptoms of migraine Osteoporosis 73814533 M8 1.8 Calcium carbonate vit D3 600mg-5mcg qd [id number] Perla Jacobo MD [facility] [address] [place] [address] 12/19/2024 20:01:35 12/20/2024 11:17:41 Gastroesophageal reflux disease without esophagitis 524323822 K21.9 No current sxs.Contin ue omeprazole 20 mg qd and hyoscyamin e sulf 0.125 mg q 6 hrs.F/U with PCP as outpt. Essential hypertension 15852660 I10 SBP high this AM, but had bene ok prior to this.Raffi nue valsartan 40 mg qd, prazosin 2 mg qd, and verapamil 120 mg BID.MOnito r BP and labs as outpt. Mixed anxi ety and depressive disorder 180607714 F41.9 F32.A Mood a little anxious tonight, but pretty good.Raffi nue aripiprazo le 5 mg qd, duloxetine 60 mg BID, and lorazepam 1 mg qd prnF/U with PCP as outpt. Mixed hyperlipidemia 267 753128 E78.2 Continue atorvastat in 80 mg qhs and ASA 81 mg qd.Monitor as outpt. Migraine 42141024 G43.90 9 Continue meds as above and butalbital -acetamino phen-caff 50/325/40 mg BID prnF/U with PCP as outpt. Osteoporosis 86862750 M8 1.8 Continue calcium carbonate and vit D3 600 mg/200 IU qdF/U as outpt. Pulmonary emphysema 8743 3001 J43.8 Z99.81 Resp sxs almost back to baseline.W ill have pt start to taper prednisone on d/c, 40 mg qd x 3d, 30 mg qd x 3d, 20 mg qd x 3d, then 10 mg qd until seen by PCP.Contin ue budesonide nebs BID, benzonatat e 100 mg TID, roflumilas t 500 mcg qd, duonebs q 4 hrs prn, albuterol MDI 2 puffs q 4 hrs prn, and robitussin AC 10 ml q 6 hrs prn.F/U with PCP and pulmonolog ist as outpt. Trigeminal neuralgia 316 29648 G50.0 Continue lidocaine patch 4% qd, baclofen 20 mg TID, gabapentin 1200 mg TID, oxcarbazep ine 300 mg TID, duloxetine 60 mg BID, and oxycodone 5 mg BID prnF/U with PCP and neuro as outpt. Health Concerns Section Related Observation LastModified by Organization Detai ls LastModified Time None Recorded Concern Status LastModified by Organization Details LastModified Time None Recorded Advance Directives Directive Y: Payers Insurance Date Sequence Insurance Name Policy Number Policy Valenzuela Covered Member ID Valenzuela Member ID Guarantor Name 12/20/2024 1 LUKASMA: [facility] (O) [id number] Zulma Constantino [id number] Zulma Constantino Notes Date Note Type Note Provider Name and Address Organization Details Recorded Time 12/14/2024 text/html Patient is a 59 yo female with a PMH of COPD/emphysema 0n 1-3 L O2, tobacco dependance, HTN HLD nephrolithiasis, CVA, obesity, moderate aortic stenosis with a small pericardial effusion noted from echo, trigeminal neuralgia, occipital neuralgia, chronic pain syndrome, JUANITO with no CPAP use, depression, anxiety, urinary incontinence. She presented to [facility] for shortness of breath persisting for the last 24 hrs. Chest xray was negative for acute findings. Patient reported chest pressure and nausea which were resolved. Chest xray negative negative. symptoms due to COPD. Patient had been at [facility] on admission on 12/01 for significant hypotension after starting furosemide and was recently diagnosed with CHF. She was admitted to the ICU for acidosis. EF 70% with moderate aortic stenosis, small pericardial effusion, and no abnormal wall abnormalities. Patient was on levophed, hydration and symptoms improved. She was discharged on 12/05. Patient stated she did not attend rehab as she is not a candidate for PT/OT. Troponin 29.2 BNP 16 VBG 7.47, 51, 102, 38. Patient was in bed during interview. She expressed concern over her medication timing and will now have her medications at 5am everyday. She also expressed concern of having another hypotensive episode that she feels are precipitated by feeling short of breath. She was reassured that her BP will be monitored every shift and before working with pt. A psych referral has been placed due to patient appearing sad and weeping. Patient is requesting lidocaine ointment to help her control pain when wearing her CPAP. The facility only provides lidocaine patches. BUDDY JOE [address] [place] [address], [address], [place], [address], [facility] 12/14/2024 14:39:08 12/19/2024 text/html This is a 59 yo woman on home O2 who is here for rehab after an acute hospitalization for acute on chronic hypoxic resp failure due to COPD and CHF exacerbations. She had initially beenhospitalized at [facility] from 12/01- for significant hypotension status post starting Lasix where she was told she recently was diagnosed with CHF. Patient required critical care admission to the ICU for this previous admission. Patient was very acidotic with an elevated lactic acid. Patient was also very somnolent at that time. Echo revealed a hyperdynamic EF of 70% and moderate aortic stenosis with a small pericardial effusion. Patient had some abnormal diastolic dysfunction but no other wall abnormalities noted. During patient's time in the ICU she required Levophed, hydration, and symptoms did start to improve. Patient was then transferred to the floor and discharged home on 12/05/2024. Patient states she did not attend rehab as she is not a candidate for PT or OT. [facility] SOB and CP with nausea. CP had resolved by arrival in ED.She was found to be saturating 80% at 2 Lafter nebulizing treatment improved to 83% after arrival in the ER patient is saturating 95% on 2 L patient complaining of bilateral lung pain does have cough no fever no chills Per d/c summary:59-year-old female with past medical history COPD/emphysema on home O2 1-3 L, tobacco dependence, hypertension, hyperlipidemia, nephrolithiasis, CVA, obesity , moderate aortic stenosis with small pericardial effusion noted from echo 12/01/2024, trigeminal neuralgia, occipital neuralgia, chronic pain syndrome, JUANITO but does not tolerate CPAP, depression/ anxiety, urinary incontinence was brought in by ambulance to the emergency department with complaints of shortness of breath persisting over 24 hours.Chest x-ray negativefor any acute findings. Patient reported chest pressure and nausea which are currently resolved. Patient did receive antiemetics x1 with good effect.Patient had just been discharged from the hospital 12/05/2024 status post admission 12/01/2024 for significant hypotension status post starting Lasix where she was told she recently was diagnosed with CHF. Patient required critical care admission to the ICU for this previous admission. Patient was very acidotic with an elevated lactic acid. Patient was also very somnolent at that time.Echo revealed a hyperdynamic EF of 70% and moderate aortic stenosis with a small pericardial effusion. Patient had some abnormal diastolic dysfunction but no other wall abnormalities noted. During patient's time in the ICU she required Levophed, hydration, and symptoms did start to improve. Patient was then transferred to the floor and discharged home on 12/05/2024. Patient states she did not attend rehab as she is not a candidate for PT or OT. Patient was not consulted Cardiology this past admission. We will place consultation with Cardiology at this time patient's current presentation noting recent echo with moderate aortic stenosis and small pericardial effusion.There is no currently any right heart strain on EKG. Patient is satting 92% on 3 L nasal cannula. Troponin 29.2, BNP 16. VBG 7.47, 51, 102 and 38. Patient did receive methylprednisolone in the ED and blood sugars are currently elevated at 227. hospital course:Patient was admitted for chronic hypoxic respiratory failure due to COPD with acute decompensation. Wastreated with steroids and transitioned to prednisone. Was continued on nebulizers and symptoms improved. Patient is ambulating with walker with minimal shortness breath. [facility] be [facility] for [facility]term rehab and 5 more days of prednisone she is expected require less than 30 days.For JUANITO was encouraged to use CPAP at night topical lidocaine was used for tolerance due to trigeminal neuralgia as well as Trileptal with moderate success. For moderate aortic stenosis should continue to follow up with Cardiology as outpatient. For mood disorder was continued on Cymbalta and Abilify. For hypertension was continued on Diovan and verapamil Transferred here on 12/13. Since here she has worked with rehab.She is independent for mobility with walker. She continues to need help with lower body dressing.She lives with her in a 2 story condo, but stays on the 1st floor and sleeps in recliner. Looking into hospital bed.She feels ready to go home and there is no contraindication to that.Her resp status has been stable since here.Her BP has been variable, but mostly good.SInce here she has tried to use CPAP, but it aggravates her trigeminal neuralgia and causes severe pain. Has tried many things without relief.She has a PCP and bag machine adjuster to f/u with as outpt. We discuss prednisone taper as outpt and she wonders about getting a 2nd opinion in [place] about CHF/COPD issues.She also tell me she get muscle cramps in hands and feet and was going to start Mg+ supplement just before hospitalization, but never did. Her PMH includes HTN, COPD on home O2, moderate , hx of CVA, HLD, JUANITO doesn't tolerate CPAP, MGUS on IVIG infusions, anxiety/depression, cigarette smoker, chronic back pain, trigeminal neuralgia, occipital neuralgia, obesity, nephrolithiasis, and urinary incontinence. Peral Jacobo MD [address] [facility], [address], [place], [address], [facility] 12/19/2024 21:28:48 OBGyn Episode No OBEpisode recorded.
--- OUTSIDE RECORDS SUMMARY | 2025-01-04 13:18 | XMS_ITS | Encounter Summary ---
Author Organization [facility] Address [address] [place] [phone] Phone Care Team Providers Care Programmer Numerical Control Name Role Phone Jn Cardoza MD Unavailable Denys Henriquez MD Unavailable Liyah Patterson MD Unavailable Antione Segura PA-C Primary Care Provider [phone] Reason for Visit * Reason Onset Date Comments Shortness of Breath 01/04/2025 Encounter Details Date Type Department Care Team (Late st Contact Info) Description 01/04/2025 Telephone [facility] Internal Medicine [address] [place], [place] [phone] Antione Segura PA-C [address] [place] [address] [email or web address] Shortness of Breath Social History Tobacco Use Types Packs/Day Years Used Date Smoking Tobacco: Former Cigarettes 0.8 42.6 0 11/25/1981 - 04/2024 Passive Smoke Exposure: Never Smokeless Tobacco: Never Alcohol Use Standard Drinks/Week Comments Yes 0 (1 standard drink = 0.6 oz pur e alcohol) 1-2 drinks, 2 x year Home Health Assessment: Transportation Answer Date Recorded Lack of Transportation (Medical) No 12/27/2024 Lack of Transportation (Non-Medical) No 12/27/2024 Patient Unable or Declines to Respond No 12/27/2024 Child or Family Care Answer Date Record ed Do you have problems with on e of the following making it difficult for you to work, study, or receive health care? No 02/18/2023 Education Answer Date Recorded Are you interested in help w ith more adult education (for example, completing high school, GED, job training, learning the [place] language, technical skills, or developing parenting skills)? No 02/18/2023 Are you concerned about learning? Not on file 02/18/2023 No 02/18/2023 Yes 02/18/2023 Food Answer Date Recorded Within the past 6 months we worried whether our food would run out before we got money to buy more. Sometimes True 023 Within the past 6 months the food we bought just didn't last and we didn't have enough money to get more. Never True 12/2022 Residential Stability Answer Date Recor ded What is your housing situation today? I have marianna sing 02/18/2023 How many times have you move d in the past 12 months? Zero (I did not move) 02/18/2023 Paying for Meds Answer Date Recorded Do you have trouble paying for medicines? No 02/18/2023 Paying Utility Bills Answer Date Record ed Do you have trouble paying your heating or elect ricity bill? No 02/18/2023 Transportation Answer Date Recorded Has the lack of transportati on kept you from medical appointments or from getting medications? No 02/18/2023 Digital Access Answer Date Recorded No 02/18/2023 Yes 02/18/2023 Do you have reliable internet access at home? Ye s 02/18/2023 Do you have a device (e.g., phone, tablet, computer) with a working camera? Yes 02/18/2023 Intimate Partner Violence Answer Date R ecorded [...] PM EDT documented as of this encounter Progress Notes * Radha Haque RN - 01/04/2025 11:23 AM EDT Zulma reports SOB that started 2 days ago and she is audibly SOB on the phone and having a hard time catching her breath. She is also reporting increased leg edema. I advised her she needs to be seenat the ER now. She will call an ambulance right now for transport to [facility] ER. documented in this encounter Plan of Treatment Upcoming Encounters Date Type Department Care Team (Late st Contact Info) Description 01/05/2025 1:00 AM EDT Home Care Visit [facility] [address] [place] [address] Shakira Hand, RN [address] [place] [address] 01/05/2025 2:30 AM EDT Home Care Visit [facility] [address] [place] [address] Yane Lanza, PT [address] [place] [address] 01/05/2025 6:00 AM EDT Home Care Visit [facility] [address] [place] [address] Rosaline Han [address] [place] [address] 01/09/2025 2:00 AM EDT Home Care Visit [facility] [address] [place] [address] Shakira Hand, HUA [address] [place] [address] [email or web address] 01/10/2025 2:00 AM EDT Home Care Visit [facility] [address] [place] [address] Rosaline Han [address] [place] [address] [email or web address] 01/10/2025 1:45 PM EDT Home Care Visit [facility] [address] [place] [address] Josy Brooks, HEAD OF PARTNER DEVELOPMENT [address] [place] [address] [email or web address] 01/12/2025 12:45 AM EDT Home Care Visit [facility] [address] [place] [phone] Josy Brooks, HEAD OF PARTNER DEVELOPMENT [address] [place] [address] [email or web address] 01/12/2025 1:30 AM EDT Home Care Visit [facility] [address] [place] [phone] Shakira Hand, HUA [address] [place] [address] [email or web address] 01/12/2025 6:00 AM EDT Home Care Visit [facility] [address] [place] [address] Rosaline Han [address] [place] [address] [email or web address] 01/15/2025 2:15 AM EDT Home Care Visit [facility] [address] [place] [address] Josy Brooks, HEAD OF PARTNER DEVELOPMENT [address] [place] [address] [email or web address] 01/17/2025 12:45 AM EDT Home Care Visit [facility] [address] [place] [address] Josy Brooks, HEAD OF PARTNER DEVELOPMENT [address] [place] [address] [email or web address] 01/17/2025 2:00 AM EDT Home Care Visit [facility] [address] [place] [address] Rosaline Han [address] [place] [address] [email or web address] 01/18/2025 1:30 AM EDT Home Care Visit [facility] [address] [place] [phone] Shakira Hand, RN [address] [place] [address] [email or web address] 01/19/2025 6:00 AM EDT Home Care Visit [facility] [address] [place] [phone] Guille Rosaline [address] [place] [address] [email or web address] 01/22/2025 12:45 AM EDT Home Care Visit [facility] [address] [place] [address] Josy Brooks, HEAD OF PARTNER DEVELOPMENT [address] [place] [address] [email or web address] 01/24/2025 12:45 AM EDT Home Care Visit [facility] [address] [place] [address] Yane Lanza, PT [address] [place] [address] [email or web address] 01/24/2025 2:00 AM EDT Home Care Visit [facility] [address] [place] [address] [address] [place] [address] 01/25/2025 1:00 AM EDT Home Care Visit [facility] [address] [place] [address] Shakira Hand, HUA [address] [place] [address] [email or web address] 01/26/2025 5:00 AM EDT Home Care Visit [facility] [address] [place] [phone] Guille Rosaline [address] [place] [address] [email or web address] 01/31/2025 2:00 AM EDT Home Care Visit [facility] [address] [place] [phone] Guille Rosaline [address] [place] [address] [email or web address] 02/01/2025 1:30 AM EDT Home Care Visit [facility] [address] [place] [address] Shakira Hand, HUA [address] [place] [address] [email or web address] 02/02/2025 5:00 AM EDT Home Care Visit [facility] [address] [place] [address] Guille Rosaline [address] [place] [phone] [email or web address] 02/07/2025 2:00 AM EDT Home Care Visit [facility] [address] [place] [address] Rosaline Han [address] [place] [address] [email or web address] 02/07/2025 3:20 PM EDT Office Visit [facility] [address] [place] [address] Antione Segura PA-C [address] [place] [address] [email or web address] 02/08/2025 1:00 AM EDT Home Care Visit [facility] [address] [place] [address] Shakira Hand RN [address] [place] [address] [email or web address] 02/09/2025 3:00 AM EDT Home Care Visit [facility] [address] [place] [address] Rosaline Han [address] [place] [address] [email or web address] 02/14/2025 2:00 AM EDT Home Care Visit [facility] [address] [place], [place] [phone] Rosaline Han [address] [place] [address] [email or web address] 02/15/2025 1:00 AM EDT Home Care Visit [facility] [address] [place] [address] Shakira Hand, HUA [address] [place] [address] [email or web address] 02/16/2025 1:00 AM EDT Home Care Visit [facility] [address] [place] [address] Rosaline Han [address] [place] [address] [email or web address] 02/21/2025 2:00 AM EDT Home Care Visit [facility] [address] [place] [address] Rosaline Han [address] [place] [address] [email or web address] 02/22/2025 12:30 AM EDT Appointment [facility] [address] [place] [address] Shakira Hand RN [address] [place] [address] [email or web address] 02/23/2025 1:00 AM EDT Home Care Visit [facility] [address] [place], [place] [phone] Guille Rosaline [address] [place] [address] [email or web address] 04/17/2025 1:00 PM EST Office Visit [facility] [address] [place] [address] Brittnee Vigil MD [address] [place] [address] documented as of this encounter Visit Diagnoses Not on filedocumented in this encounter Additional Health Concerns Assessment Noted Time PHQ-9 Depression Total Score: 20 025 9:08 PM EDT PHQ-2 Depression Total Score: 6 12/28/19 25 9:08 PM EDT documented as of this encounter Care Teams Programmer Numerical Control Relationship Specialty Start Date End Date Antione Segura PA-C [address] [place] [address] [email or web address] PCP - General Physician Patient Flow Coordinator 10/12/24 Jn Cardoza MD [address] [facility], [address] [place] [address] [email or web address] Neurology 02/03/24 Denys Henriquez MD [address] [place] [address] [place] [address] Pulmonary Disease 02/03/24 Liyah Patterson MD [address] [facility] [address] [place] [address] [email or web address] Insurance Assigned Provider 02/19/24 documented as of this encounter Additional Source Comments The information contained in this document represents components of the legal health record. It is not the complete legal health record.[facility]
--- NOTE | 2025-01-04 13:36 | PC.NURSE ---
Patient presents to ED c/o SOB and facial swelling/pain. Pain rated 9/10 non radiating. Patient arrived in ED on RA 94%. Patient received duoneb enroute from EMS and received another treatment from respiratory. Patient was given a dose of solumedrol. SOB resolved patient remained at 94% no respiratory distress noted. Patient baseline wears O2 1L at bedtime, 2L during the day, 3L with exertion. Patient fell asleep, O2 went to 88% RA applied 2L NC reassessed O2 96% no SOB/WOB. 20G RAC currently running mag sulfate @ 25ml/hr. Patient c/o juanito leg edema, 2+ edema noted. Blood collected/sent. Plan of care on going
[2025-01-04 13:39] LABS: Resp Syncy Virus RNA Qual PCR NEGATIVE (Negative); SARS COV2 PCR INHOUSE NEGATIVE (Negative)
[2025-01-04 13:58] LABS: ABG HCO3 31 mmol/L (22-26); ABG O2 % Saturation 99.0 %
[2025-01-04 14:08] LABS: Appearance Urine Cloudy; Glucose Urine UA Negative (Negative); PH >= 9.0 (5.0-9.0); Specific Gravity - Urine 1.010 (1.005-1.025)
--- NOTE | 2025-01-04 14:24 | MHC.EDTECH ---
patient O2 sat went down to 88-89 on room air, nurse put patient on 2 liters and sat went up to 92-93
[2025-01-04] MEDS: oxyCODONE HCl Immed Release 5 MG TABLET PO ×2 (15:04→17:27)
[2025-01-04 16:00] LABS: Venous Blood Gas Refer to POC result
[2025-01-04 16:02] LABS: VBG HCO3 30 mmol/L (22-26); VBG O2 % Saturation 100.0 %
[2025-01-04] MEDS: 0.9 % Sodium Chloride Flush 3 ML SYRINGE IVFLUSH (17:07)
[2025-01-04 17:35] LABS: ABG Refer to POC result
--- NOTE | 2025-01-04 17:44 | PHA.MEDREC ---
Pharmacy Consult ? Medication Reconciliation Pharmacy has completed the medication reconciliation. Spoke with pt and she confirmed her medications. Pt just here on 09/25 and states there was a few changes since then; pt no longer taking Tylenol, Pulmicort, and Senna. Pt finished the Antibiotics/Steroids (Levofloxacin and Prednisone) last week. Pt has on hand Clobetasol cream; pt taking it BID. Per pt she is now taking her Lorazepam 0.5mg tab 1 in the AM and 1 in the PM prn for anxiety,
--- NOTE | 2025-01-04 17:56 | PHA.MEDREC ---
Addendum entered by Gurjit Jaime [facility] 01/04/25 18:23: MED REC REVIEWED BY [facility] Addendum entered by Giovanni Calzada 01/04/25 18:16: Spoke with pt about Oxycarbazapine and pt confirmed she is taking 300mg BID; despite claims showing Oxycarbazapine 300mg TID filled 12/11/24 #90 for 30 days. Original Note: Pharmacy Consult ? Medication Reconciliation Pharmacy has completed the medication reconciliation. Spoke with pt and she confirmed her medications. Pt just here on 09/25 and states there was a few changes since then; pt no longer taking Tylenol, Pulmicort, Lidocaine Patches and Senna. Pt finished the Antibiotics/Steroids (Levofloxacin and Prednisone) last week. Pt has on hand Clobetasol cream; pt taking it BID. Per pt she is now taking her Lorazepam 0.5mg tab 1 in the AM and 1 in the PM prn for anxiety. We do not have Hyoscyamine in stock in our pharmacy; pt at bedside states he can bring that in.
--- NOTE | 2025-01-04 18:31 | P.HPHOSP_ITS ---
History of Present Illness Date of Service: 01/04/25 Attending physician on admission: Desiree Peoples Chief Complaint: Shortness of breath Zulma Alves is a 59 years old woman with past medical history significant for COPD on home oxygen on 1-3L/min, hyperlipidemia, nephrolithiasis, CVA, obesity, moderate , chronic pain and oxycodone, essential hypertension and multiple hospitalization due to COPD exacerbation presents to the emergency department complaining of shortness of breaths. She also reported worsening leg edema for which she has been using compression stockings. She denied cough, fever, chest pain, nausea, vomiting, abdominal pain or diarrhea. She denied tobacco smoking -quit 7 months ago. According to ED provider patient came with diffuse expiratory wheezes and hypoxia. In the ED, he was found to have stable vital signs except for mild degree of tachypnea. She is currently having adequate oxygen saturation on 2 L/min, at baseline. There is no fever. Blood workup showed no leukocytosis. Hemoglobin is 10.8 which is at baseline. Platelets are normal. Venous blood gas showed no respiratory acidosis and CO2 is elevated. There are no electrolyte imbalances. Renal function is adequate, lipase and LFTs are normal. BNP is normal (63). Troponin is 8.6. Urinalysis is normal. CXR is normal. ED tx: Solu-Medrol 125 mg IV, magnesium 2 g IV, Lasix 40 mg IV, albuterol nebs 2.5 mg x 2. Oxycodone 5 mg p.o.. Review of Systems 2 Review of Systems: All 12 systems were reviewed and normal except as noted in HPI. [facility] Medical History Leukocytosis Chronic lung disease Chronic lung disease Hypoxia Panic disorder Hypertension Chronic hypercapnic respiratory failure Aortic stenosis Obesity (BMI 30-39.9) Asthma Acute exacerbation of chronic obstructive pulmonary disease Chronic lung disease Hypogammaglobulinemia Smoker JUANITO (obstructive sleep apnea) Allergies Elevated troponin COPD (chronic obstructive pulmonary disease) Trigeminal neuralgia Pulmonary nodules Mixed hyperlipidemia Peripheral neuropathy Tobacco use disorder Mood disorder Surgical History History of esophagogastroduodenoscopy (EGD) History of colonoscopy History of lumbar discectomy History of tubal ligation History of excision of mass History of shoulder surgery Social History Household Members: Family Household Members Other:: dog Housing: House Do you presently have visiting nurse or other home services: Yes Alcohol intake: never Comment: room assignment pending Patient Tobacco Use Status: Former Tobacco user Tobacco use type: Cigarette Cigarette Packs Per Day: 4 Cigarettes Per Day: 80.0 Years Smoked: 40 Smoked in Last 30 Days: No e-Cigarette/Vaping Use: Never Used Second Hand Smoke Exposure: No Use of substances other than those prescribed or required for medical reasons: No Substance Use Type: Marijuana Advance Directives: Yes Advance Directives on File: Yes Advance Directives Date on File: 03/09/23 Do you have a plan to hurt others: No Plan Patient : No service: No Meds Allergies Allergy/AdvReac Type Severity Reaction Status Date / Time Iodinated Contrast Media (IV Allergy Intermediate HIVES Verified 01/04/25 12:15 CONTRAST) latex (LATEX) Allergy Unknown RASH Verified 01/04/25 12:15 adhesive tape Allergy Rash Verified 01/04/25 12:15 morphine (MORPHINE) AdvReac Unknown VOMITING Verified 01/04/25 12:15 Active Medications: Current Medications Acetaminophen (Acetaminophen 325 Mg Tablet) 975 mg PO Q6H PRN PRN Reason: Pain, Mild 1-3,fever,headache Acetaminophen/Butalbital/Caffeine (Butalb/Acetamin/Caff 50/325/40 Tablet) 1 tab PO DAILY MRX1 PRN PRN Reason: Migraine Headache Albuterol/Ipratropium (Albuterol/Iprat 2.5/0.5mg 3 Ml Ampul.Neb) 3 ml INHALE Q4H PRN PRN Reason: Shortness of Breath/Wheezing Aripiprazole (Aripiprazole 5 Mg Tablet) 5 mg PO DAILY [facility] Aspirin (Aspirin Enteric Coated 81 Mg Tablet.) 81 mg PO DAILY@1999 [facility] Atorvastatin Calcium (Atorvastatin Calcium 80 Mg Tablet) 80 mg PO DAILY@1999 [facility] Baclofen (Baclofen 20 Mg Tablet) 20 mg PO TID@0500,1199,1999 [facility] Duloxetine HCl (Duloxetine Hcl 60 Mg Capsule.) 60 mg PO BID@499,1999 [facility] Enoxaparin Sodium (Enoxaparin Sodium 40 Mg/0.4 Ml Syringe) 40 mg SUBCUT Q24H [facility] Gabapentin (Gabapentin 400 Mg Capsule) 1,200 mg PO TID@0500,1200,1999 [facility] Guaifenesin/Dextromethorphan (Guaifenesin Dm 600/30 1 Tab Tab.Er.12h) 1 tab PO BID [facility] Lorazepam (Lorazepam 0.5 Mg Tablet) 0.5 mg PO BID PRN PRN Reason: MODERATE Anxiety Non-Formulary Medication (Calcium Carbonate-Vitamin D3) 1 tab PO DAILY@1999 [facility] Non-Formulary Medication (Hyoscyamine Sulfate) 0.25 mg PO Q6H PRN PRN Reason: Abdominal Discomfort Omeprazole (Omeprazole 20 Mg Capsule.Dr) 20 mg PO DAILY@629 [facility] Oxcarbazepine (Oxcarbazepine 300 Mg Tablet) 300 mg PO BID [facility] Oxycodone HCl (Oxycodone Hcl Immed Release 5 Mg Tablet) 5 mg PO BID PRN PRN Reason: Severe Pain (Scale Score 7-10) Polyethylene Glycol (Polyethylene Glycol 3350 17 Gm Powd.Pack) 17 gm PO DAILY PRN PRN Reason: Constipation Prazosin HCl (Prazosin Hcl 1 Mg Capsule) 2 mg PO DAILY@1999 [facility]; Protocol Roflumilast (Roflumilast 500 Mcg Tablet) 500 mcg PO DAILY [facility] Sodium Chloride (0.9 % Sodium Chloride Flush 3 Ml Syringe) 3 ml IVFLUSH [facility] Last Admin: 01/04/25 17:07 Dose: 3 ml Valsartan (Valsartan 40 Mg Tablet) 40 mg PO DAILY [facility]; Protocol Verapamil HCl (Verapamil Hcl 120 Mg Tablet) 120 mg PO BID@499,1999 [facility]; Protocol Home Medications ?Medication ?Instructions ?Recorded ?Confirmed ?Last Taken ?Type atorvastatin 80 mg tablet 80 mg PO DAILY@199903/04/23 01/04/25 01/03/25 History suhquxnyzb-dpjofqhwyisbh-rcjeuunl 1 tab PO DAILY MRX1 PRN Migraine 03/04/23 01/04/25 05/21/24 20:00 History 50 mg-325 mg-40 mg tablet Headache duloxetine 60 mg capsule,delayed 60 mg PO BID@0500,200 0 03/04/23 01/04/25 01/04/25 History release gabapentin 300 mg capsule 1,200 mg PO TID@0500,1200,20 00 03/04/23 01/04/2525 12:00 History hyoscyamine sulfate 0.125 mg tablet 0.25 mg PO Q6H PRN Abdominal 03/04/23 01/04/25 05/21/24 20:00 History Discomfort Oxygen Home Use 04/16/23 10/29/24 10/28/24 History prazosin 2 mg capsule 2 mg PO DAILY@199904/16/23 01/04/25 01/03/25 History albuterol sulfate 90 mcg/actuation 2 puff inhalation Q 4H PRN 01/31/24 01/04/25 01/04/25 History aerosol inhaler Shortness Of Breath Or Wheez ing aspirin 81 mg tablet,delayed 81 mg PO DAILY@05/2201/04/25 01/03/25 History release calcium 600 mg (as 1 tab PO DAILY@199906/20/24 01/04/25 01/03/25 History carbonate)-vitamin D3 5 mcg (200 unit) tablet verapamil 120 mg tablet 120 mg PO BID@05006/1401/04/25 01/04/25 History baclofen 20 mg tablet 20 mg PO TID@0500,1200,199910/29/24 01/04/25 01/04/25 12:00 History aripiprazole 5 mg tablet (Abilify) 5 mg PO DAILY 12/0101/04/25 01/04/25 History oxcarbazepine 300 mg tablet 300 mg PO BID 12/21/2401/04/25 History clobetasol 0.05 % topical cream 1 appl topical BID 01/04/25 01/04/25 History lidocaine 4 % topical gel 1 appl topical TID PRN Pain 01/04/25 01/04/25 Unknown History lorazepam 0.5 mg tablet 0.5 mg PO BID PRN MODERATE A nxiety 01/04/25 01/04/25 Unknown History polyethylene glycol 3350 17 17 g PO DAILY PRN Constipa tion 01/04/25 01/04/25 Unknown History gram/dose oral powder (Miralax) Physical Exam 2 Vital Signs and Narrative: Vital Signs: Last Vital Signs Temp 98.5 F 01/04/25 17:30 Pulse 91 01/04/25 17:30 Resp 19 01/04/25 17:30 BP 168/71 H 01/04/25 17:30 Pulse Ox 94 01/04/25 17:30 O2 Del Method Nasal Cannula 01/04/25 17:30 O2 Flow Rate 2 01/04/25 17:30 BMI result Body Mass Index 40.9 Constitutional - Awake and Alert, No apparent distress. Obese. Cooperative. Afebrile. HEENT - PER, EOMI Heart - RRR, (+) murmur Lungs - Normal lung expansion, Normal respiratory effort, No respiratory distress. Tachypnea. Minimal end expiratory wheezes. Gastrointestinal - NT / ND; +BS; No rebound or guarding Extremities - bilateral pitting edema to the lower extremities Musculoskeletal - Normal inspection, normal ROM Skin - Warm/Dry Neurological - Alert & oriented x3. Moving all extremities spontaneously. Normal speech. Psychological - Appropriate affect Results Labs 01/04/25 12:45 01/04/25 12:44 Labs: Laboratory Results - last 24 hr 01/04/25 01/04/25 01/04/25 12:44 12:45 13:53 MCV 98.5 H MCH 32.6 MCHC 33.1 RDW 14.2 Plt Count 352 MPV 8.8 L Immature Gran % (Auto) 0.4 Neut % (Auto) 71.0 Lymph % (Auto) 13.9 L [place] % (Auto) 9.8 Eos % (Auto) 4.6 H Baso % (Auto) 0.3 Lymph # (Auto) 1.1 L [place] # (Auto) 0.8 Eos # (Auto) 0.4 Baso # (Auto) 0.0 Abs Immat Gran (auto) 0.03 Absolute Neuts (auto) 5.4 Absolute Nucleated RBC 0.000 Nucleated RBC % (auto) 0.0 PT 10.7 L INR 0.9 O2 Saturation 99.0 ABG pH at Pt Temp 7.46 H ABG pCO2 at Pt Temp 43 ABG pO2 at Pt Temp 97 ABG HCO3 31 H ABG Base Excess (Actual) 6.6 VBG pH VBG pCO2 VBG pO2 VBG HCO3 VBG O2 Saturation VBG Base Excess Anion Gap 13 Estim Creat Clear Calc 88.0 Estimated GFR > 60 Random Glucose 118 H Lactic Acid 1.6 Calcium 9.6 Total Bilirubin 0.3 Direct Bilirubin 0.1 AST 24 ALT 15 Alkaline Phosphatase 60 B-Natriuretic Peptide 63 Total Protein 6.3 L Albumin 4.1 Lipase 16 Urine Color Urine Appearance Urine pH Ur Specific [place] Urine Protein Urine Glucose (UA) Urine Ketones Urine Blood Urine Nitrite Ur Leukocyte Esterase Influenza Type A (PCR) NEGATIVE Influenza Type B (PCR) NEGATIVE RSV RNA Qual (PCR) NEGATIVE SARS-CoV-2 RNA (RT-PCR) NEGATIVE 01/04/25 01/04/25 13:55 15:57 MCV MCH MCHC RDW Plt Count MPV Immature Gran % (Auto) Neut % (Auto) Lymph % (Auto) [place] % (Auto) Eos % (Auto) Baso % (Auto) Lymph # (Auto) [place] # (Auto) Eos # (Auto) Baso # (Auto) Abs Immat Gran (auto) Absolute Neuts (auto) Absolute Nucleated RBC Nucleated RBC % (auto) PT INR O2 Saturation ABG pH at Pt Temp ABG pCO2 at Pt Temp ABG pO2 at Pt Temp ABG HCO3 ABG Base Excess (Actual) VBG pH 7.42 VBG pCO2 45 VBG pO2 125 VBG HCO3 30 H VBG O2 Saturation 100.0 VBG Base Excess 4.9 Anion Gap Estim Creat Clear Calc Estimated GFR Random Glucose Lactic Acid Calcium Total Bilirubin Direct Bilirubin AST ALT Alkaline Phosphatase B-Natriuretic Peptide Total Protein Albumin Lipase Urine Color Yellow Urine Appearance Cloudy Urine pH >= 9.0 Ur Specific [place] 1.010 Urine Protein Negative Urine Glucose (UA) Negative Urine Ketones Negative Urine Blood Negative Urine Nitrite Negative Ur Leukocyte Esterase Negative Influenza Type A (PCR) Influenza Type B (PCR) RSV RNA Qual (PCR) SARS-CoV-2 RNA (RT-PCR) Imaging Radiologist's Impressions: Impressions Chest X-Ray 01/04/25 11:54 IMPRESSION: No acute disease Electronically signed by: Deric Meeks MD 01/04/2025 01:07 PM EDT Assessment and Plan (1) Acute exacerbation of COPD with asthma: Status: Acute (2) Hypertension: Qualifiers: Hypertension type: primary hypertension Qualified Code(s): I10 - Essential (primary) hypertension Status: Acute Plan Zulma Alves is a 59 y/o woman presents with: Acute exacerbation of chronic obstructive pulmonary disease in the setting of chronic hypoxic and hypercarbic respiratory failure. Admit to telemetry. Continuous pulse oximetry. Supplemental O2 keep O2 sats > 90%. Continue bronchodilator therapy and IV steroids. Continue rofulmilast Patient said that she can not tolerate respiratory supplement chills. HFpEF. Patient was given 40 mg IV of Lasix: However, BNP is normal CXR showed clear lungs; doubt CHF decompensation. Hyperlipidemia. Continue atorvastatin. Essential hypertension. Continue verapamil, losartan and prazosin. History of trigeminal neuralgia. Continue gabapentin, baclofen, topical lidocaine and oxcarbazepine. Chronic back pain. Continue oxycodone. Moderate aortic stenosis. No evidence of acute CHF. Patient denied chest pain or syncopal episode. Mood disorder. Continue lorazepam as needed, duloxetine and aripiprazole. History of CVA. Continue aspirin and statin. Obesity, class III. BMI 40.9 kg/m2. Lifestyle interventions for weight loss needed. DVT prophylaxis: Lovenox Code: Full Patient will need hospitalization for at least 2 midnights for acute exacerbation treatment with bronchodilator therapy and IV steroids; cardiac and VS monitoring. Quality Stroke Does the patient have a stroke diagnosis?: No VTE Prior VTE?: No VTE Risk Level:: Medical - moderate - high VTE Device Contraindication: N/A - Device Ordered VTE Drug Contraindication: N/A - Med Ordered
[2025-01-04] MEDS: guaiFENesin DM 600/30 1 TAB TAB.ER.12H PO (20:01)
[2025-01-04] MEDS: Calcium + Vitamin D 250 MG TABLET 500 MG PO (20:02)
[2025-01-04] MEDS: Aspirin Enteric Coated 81 MG TABLET.DR PO (20:02)
[2025-01-04] MEDS: Miconazole Nitrate 2% Powder 85 GM Bottle 1 APPL TOPICAL (22:00)
[2025-01-04] MEDS: Albuterol/Iprat 2.5/0.5MG 3 ML AMPUL.NEB INHALE (22:22)
[2025-01-05] VITALS (11 sets, daily range): BP systolic 116–163; BP diastolic 58–78; PULSE 77–91; RESP 16–20; TEMP 36–36.7; O2SAT 92–99
[2025-01-05] MEDS: oxyCODONE HCl Immed Release 5 MG TABLET PO ×3 (00:33→20:01)
[2025-01-05] MEDS: Albuterol/Iprat 2.5/0.5MG 3 ML AMPUL.NEB INHALE ×4 (03:40→20:13)
[2025-01-05 06:26] LABS: MANUAL DIFF FLAG NO
[2025-01-05 06:34] LABS: Hematocrit 34.8 % (37.0-47.0); Hemoglobin 11.3 g/dl (12.0-16.0); Imm Gran Abs Auto 0.04 X10*3/uL (0.00-0.03); Imm Gran Pct Auto 0.4 % (0.0-0.4); Lymphocytes Absolute Auto 0.7 X10*3/uL (1.2-4.9); Mean Corpuscular HGB Conc 32.5 g/dl (31.0-35.0); Mean Corpuscular Hemoglobin 31.8 pg (27.0-33.0); Mean Corpuscular Volume 98.0 fL (80.0-98.0); NRBC Abs Auto 0.000 X10*3/uL (0.0-0.012); NRBC Pct Auto 0.0 /100WBC (0.0-0.2); Platelet Count 363 X10*3/uL (160-400); Red Blood Count 3.55 X10*6/uL (4.20-5.50); White Blood Count 9.1 X10*3/uL (4.8-10.8)
[2025-01-05 06:55] LABS: Anion Gap 13 (12-20); Blood Urea Nitrogen 6 mg/dL (9-16); Calcium 9.7 mg/dL (8.4-10.2); Carbon Dioxide 27 mmol/L (22-29); Chloride 107 mmol/L (96-108); Creatinine Clr Calc Pharmacy 105.6; Estimated Glomerular Filt Rate > 60; Magnesium 2.0 mg/dL (1.6-2.6); Potassium 4.4 mmol/L (3.3-5.1); Sodium 143 mmol/L (135-145)
[2025-01-05] MEDS: guaiFENesin DM 600/30 1 TAB TAB.ER.12H PO ×2 (08:39→19:49)
[2025-01-05] MEDS: 0.9 % Sodium Chloride Flush 3 ML SYRINGE IVFLUSH ×3 (08:41→23:04)
--- NOTE | 2025-01-05 09:12 | MHC.CM.PN ---
Pt lives at home with her , she states she wishes to return home when she is ready for discharge with resumption of previous [facility]NA services and home O2/home vent through [facility]. Pt states she uses a rollater walker, and has a shower chair. Pt states her will transport her home at discharge. HCP on file and verified. PCP: Antione CARLISLE
[2025-01-05] MEDS: Betamethasone Dip Aug 0.05% Cr 15 GM TUBE 1 APPL TOPICAL (10:59)
--- NOTE | 2025-01-05 15:25 | HO.PM.IMPN ---
Subjective Subjective Date of Service: 01/05/25 Interval History: Essentially no change since admission. Breathing still poor with minimal movement Review of Systems Denies chest pain Admits shortness of breath at rest Denies nausea vomiting diarrhea Denies fever chills Physical Exam Vital Signs: Vital Signs: Last Vital Signs Temp 98.1 F 01/05/25 15:15 Pulse 84 01/05/25 15:15 Resp 16 01/05/25 15:15 BP 116/59 L 01/05/25 15:15 Pulse Ox 93 01/05/25 15:15 O2 Del Method Nasal Cannula 01/05/25 15:15 O2 Flow Rate 1 01/05/25 15:15 BMI result Body Mass Index 40.9 Const: Other: Awake alert able to speak in full sentences Resp: Other: Diminished throughout with faint expiratory wheezes Cardio: Other: No S4; positive S1-S2; no S3 murmurs rubs or gallops GI: Other: Soft nontender nondistended normoactive bowel sounds Extrem: Other: No edema bilaterally Objective Data Active Medications Acetaminophen (Acetaminophen 325 Mg Tablet) 975 mg PO Q6H PRN PRN Reason: Pain, Mild 1-3,fever,headache Acetaminophen/Butalbital/Caffeine (Butalb/Acetamin/Caff 50/325/40 Tablet) 1 tab PO DAILY MRX1 PRN PRN Reason: Migraine Headache Albuterol/Ipratropium (Albuterol/Iprat 2.5/0.5mg 3 Ml Ampul.Neb) 3 ml INHALE Q4H PRN PRN Reason: Shortness of Breath/Wheezing Last Admin: 01/05/25 13:48 Dose: 3 ml Documented By: MARYLU Aripiprazole (Aripiprazole 5 Mg Tablet) 5 mg PO DAILY [facility] Last Admin: 01/05/25 08:39 Dose: 5 mg Documented By: GARFIELD Aspirin (Aspirin Enteric Coated 81 Mg Tablet.) 81 mg PO DAILY@1999 [facility] Last Admin: 01/04/25 20:02 Dose: 81 mg Documented By: ERIC Atorvastatin Calcium (Atorvastatin Calcium 80 Mg Tablet) 80 mg PO DAILY@1999 [facility] Last Admin: 01/04/25 20:02 Dose: 80 mg Documented By: ERIC Baclofen (Baclofen 20 Mg Tablet) 20 mg PO TID@0500, [facility] Last Admin: 01/05/25 11:07 Dose: 20 mg Documented By: GARFIELD Betamethasone Dipropion Augmented (Betamethasone Dip Aug 0.05% Cr 15 Gm Tube) 1 appl TOPICAL BID [facility]; Protocol Last Admin: 01/05/25 10:59 Dose: 1 appl Documented By: GARFIELD Calcium Carbonate/Cholecalciferol (Calcium + Vitamin D 250 Mg Tablet) 500 mg PO DAILY@1999 [facility] Last Admin: 01/04/25 20:02 Dose: 500 mg Documented By: ERIC Ceftriaxone Sodium (Ceftriaxone Sodium 1 Gm Vial) 1 gm IVPUSH Q24H [facility] Last Admin: 01/05/25 12:55 Dose: 1 gm Documented By: GARFIELD Duloxetine HCl (Duloxetine Hcl 60 Mg Capsule.Dr) 60 mg PO BID@ [facility] Last Admin: 01/05/25 06:03 Dose: 60 mg Documented By: SULEIMAN Enoxaparin Sodium (Enoxaparin Sodium 40 Mg/0.4 Ml Syringe) 40 mg SUBCUT Q24H [facility] Last Admin: 01/05/25 08:40 Dose: 40 mg Documented By: GARFIELD Gabapentin (Gabapentin 400 Mg Capsule) 1,200 mg PO TID@499, [facility] Last Admin: 01/05/25 11:07 Dose: 1,200 mg Documented By: GARFIELD Guaifenesin/Dextromethorphan (Guaifenesin Dm 600/30 1 Tab Tab.Er.12h) 1 tab PO BID [facility] Last Admin: 01/05/25 08:39 Dose: 1 tab Documented By: GARFIELD Azithromycin 500 mg/ Sodium (Chloride) 250 mls @ 125 mls/hr IV Q24H [facility] Stop: 01/07/25 13:59 Last Infusion: 01/05/25 13:24 Dose: 0 mls/hr Documented By: GARFIELD Lorazepam (Lorazepam 0.5 Mg Tablet) 0.5 mg PO BID PRN PRN Reason: MODERATE Anxiety Last Admin: 01/05/25 11:07 Dose: 0.5 mg Documented By: GARFIELD Methylprednisolone Sodium Succinate (Methylprednisolone Sod Succ 125 Mg/2 Ml Vial) 60 mg IVPUSH Q6H [facility] Last Admin: 01/05/25 12:55 Dose: 60 mg Documented By: GARFIELD Non-Formulary Medication (Hyoscyamine Sulfate) 0.25 mg PO Q6H PRN PRN Reason: Abdominal Discomfort Omeprazole (Omeprazole 20 Mg Alvarez.) 20 mg PO DAILY@06 [facility] Last Admin: 01/05/25 06:03 Dose: 20 mg Documented By: SULEIMAN Oxcarbazepine (Oxcarbazepine 300 Mg Tablet) 300 mg PO BID [facility] Last Admin: 01/05/25 06:09 Dose: 300 mg Documented By: SULEIMAN Comments: OK BY DR KAUFFMAN TO GIVE EARLY, REQUESTED BY PATIENT Oxycodone HCl (Oxycodone Hcl Immed Release 5 Mg Tablet) 5 mg PO BID PRN PRN Reason: Severe Pain (Scale Score 7-10) Last Admin: 01/05/25 12:56 Dose: 5 mg Documented By: GARFIELD Polyethylene Glycol (Polyethylene Glycol 3350 17 Gm Powd.Pack) 17 gm PO DAILY PRN PRN Reason: Constipation Prazosin HCl (Prazosin Hcl 1 Mg Capsule) 2 mg PO DAILY@1999 [facility]; Protocol Last Admin: 01/04/25 20:02 Dose: 2 mg Documented By: ERIC Roflumilast (Roflumilast 500 Mcg Tablet) 500 mcg PO DAILY [facility] Last Admin: 01/05/25 08:39 Dose: 500 mcg Documented By: GARFIELD Sodium Chloride (0.9 % Sodium Chloride Flush 3 Ml Syringe) 3 ml [facility] Last Admin: 01/05/25 08:41 Dose: 3 ml Documented By: GARFIELD Valsartan (Valsartan 40 Mg Tablet) 40 mg PO DAILY [facility]; Protocol Last Admin: 01/05/25 08:39 Dose: 40 mg Documented By: GARFIELD Verapamil HCl (Verapamil Hcl 120 Mg Tablet) 120 mg PO BID@499,1999 [facility]; Protocol Last Admin: 01/05/25 06:03 Dose: 120 mg Documented By: SULEIMAN Labs 01/05/25 06:16 01/05/25 06:16 Labs: Laboratory Results - last 24 hr 01/04/25 01/05/25 15:57 06:16 MCV 98.0 MCH 31.8 MCHC 32.5 RDW 14.0 Plt Count 363 MPV 8.8 L Immature Gran % (Auto) 0.4 Neut % (Auto) 83.9 H Lymph % (Auto) 8.1 L [place] % (Auto) 7.4 Eos % (Auto) 0.1 Baso % (Auto) 0.1 Lymph # (Auto) 0.7 L [place] # (Auto) 0.7 Eos # (Auto) 0.0 Baso # (Auto) 0.0 Abs Immat Gran (auto) 0.04 H Absolute Neuts (auto) 7.6 Absolute Nucleated RBC 0.000 Nucleated RBC % (auto) 0.0 VBG pH 7.42 VBG pCO2 45 VBG pO2 125 VBG HCO3 30 H VBG O2 Saturation 100.0 VBG Base Excess 4.9 Anion Gap 13 Estim Creat Clear Calc 105.6 Estimated GFR > 60 Random Glucose 132 H Calcium 9.7 Magnesium 2.0 Microbiology Microbiology Results: Microbiology 01/04/25 12:45 Blood Culture - Preliminary Blood - Venous No growth after 24 hours. 01/04/25 12:44 Blood Culture - Preliminary Blood - Venous No growth after 24 hours. Assessment and Plan (1) Acute exacerbation of COPD with asthma: Status: Acute (2) Trigeminal neuralgia: Status: Acute Plan Zulma Alves is a 59 y/o woman presents with: 1. Acute exacerbation of COPD (with sputum) -ceftriaxone/azithromycin (1) -pulse dose steroids -DuoNebs q.4 hours while awake -titrate O2 to maintain sats greater than equal to 92% 2. HFpEF -stable and well compensated -continue outpatient therapies 3. Hypertension -acceptable control on current therapies -adjust as indicated 4. Trigeminal neuralgia (by history) -no acute issues at this time -continue outpatient therapies Lovenox Full Patient will require ongoing hospitalization for IV antibiotics and steroids to treat COPD exacerbation Quality Stroke Does the patient have a stroke diagnosis?: No VTE Prior VTE?: No VTE Risk Level:: Medical - moderate - high VTE Device Contraindication: N/A - Device Ordered VTE Drug Contraindication: N/A - Med Ordered
[2025-01-05] MEDS: Butalb/Acetamin/Caff 50/325/40 TABLET 1 TAB PO (15:43)
[2025-01-05] MEDS: Calcium + Vitamin D 250 MG TABLET 500 MG PO (19:39)
[2025-01-05] MEDS: Aspirin Enteric Coated 81 MG TABLET.DR PO (19:39)
[2025-01-05] MEDS: Miconazole Nitrate 2% Powder 85 GM Bottle 1 APPL TOPICAL (20:15)
--- NOTE | 2025-01-05 21:36 | PC.RT ---
pt refused cpap tonight
[2025-01-06] VITALS (11 sets, daily range): BP systolic 122–161; BP diastolic 62–75; PULSE 68–87; RESP 16–22; TEMP 36.1–36.4; O2SAT 91–98
[2025-01-06] MEDS: Albuterol/Iprat 2.5/0.5MG 3 ML AMPUL.NEB INHALE ×4 (01:53→21:10)
[2025-01-06] MEDS: oxyCODONE HCl Immed Release 5 MG TABLET PO ×2 (05:08→16:23)
[2025-01-06 07:10] LABS: Hematocrit 36.2 % (37.0-47.0); Hemoglobin 11.6 g/dl (12.0-16.0); Imm Gran Abs Auto 0.08 X10*3/uL (0.00-0.03); Imm Gran Pct Auto 0.8 % (0.0-0.4); Lymphocytes Absolute Auto 0.6 X10*3/uL (1.2-4.9); MANUAL DIFF FLAG SCAN; Mean Corpuscular HGB Conc 32.0 g/dl (31.0-35.0); Mean Corpuscular Hemoglobin 31.5 pg (27.0-33.0); Mean Corpuscular Volume 98.4 fL (80.0-98.0); NRBC Abs Auto 0.000 X10*3/uL (0.0-0.012); NRBC Pct Auto 0.0 /100WBC (0.0-0.2); Platelet Count 382 X10*3/uL (160-400); Red Blood Count 3.68 X10*6/uL (4.20-5.50); SCAN SMEAR FLAG 1
[2025-01-06 07:29] LABS: Alanine Aminotransferase 15 U/L (0-31); Albumin Level 4.5 g/dL (3.5-5.0); Alkaline Phosphatase 57 U/L (39-117); Anion Gap 12 (12-20); Aspartate Amino Transferase 17 U/L (5-31); Blood Urea Nitrogen 11 mg/dL (9-16); Calcium 9.6 mg/dL (8.4-10.2); Carbon Dioxide 26 mmol/L (22-29); Chloride 109 mmol/L (96-108); Creatinine Clr Calc Pharmacy 102.2; Estimated Glomerular Filt Rate > 60; Potassium 4.0 mmol/L (3.3-5.1); Sodium 143 mmol/L (135-145); Total Protein 7.1 g/dL (6.5-8.0)
[2025-01-06] MEDS: 0.9 % Sodium Chloride Flush 3 ML SYRINGE IVFLUSH ×2 (07:42→16:19)
[2025-01-06] MEDS: guaiFENesin DM 600/30 1 TAB TAB.ER.12H PO ×2 (07:43→20:42)
[2025-01-06] MEDS: HYOSCYAMINE 0.125 MG 0.25 EACH PO (07:43)
[2025-01-06] MEDS: Miconazole Nitrate 2% Powder 85 GM Bottle 1 APPL TOPICAL ×2 (07:45→20:43)
[2025-01-06 08:03] LABS: White Blood Count 10.0 X10*3/uL (4.8-10.8)
[2025-01-06 10:08] LABS: Procalcitonin 0.02 ng/mL
--- NOTE | 2025-01-06 10:41 | HO.PM.IMPN ---
Subjective Subjective Date of Service: 01/06/25 Interval History: nonproductive cough; dyspnea/wheezing improving but still very short of breath with any activity Review of Systems Review of Systems: Yes all other systems are reviewed and are negative Physical Exam Vital Signs: Vital Signs: Last Vital Signs Temp 96.9 F 01/06/25 06:58 Pulse 79 01/06/25 06:58 Resp 20 01/06/25 06:58 BP 135/62 01/06/25 07:43 Pulse Ox 94 01/06/25 06:58 O2 Del Method Nasal Cannula 01/06/25 06:58 O2 Flow Rate 3 01/06/25 06:58 BMI result Body Mass Index 40.9 Gen: short of breath with any movement HEENT: sclera anicteric, moist mucus membranes Neck: supple Lungs: diminished Heart: regular rate and rhythm, no murmurs Abd: soft, non-tender, non-distended, obese Ext: no edema Skin: warm/well-perfused Neuro: alert and oriented x3, no focal findings Psych: appropriate affect Objective Data Active Medications Acetaminophen (Acetaminophen 325 Mg Tablet) 975 mg PO Q6H PRN PRN Reason: Pain, Mild 1-3,fever,headache Acetaminophen/Butalbital/Caffeine (Butalb/Acetamin/Caff 50/325/40 Tablet) 1 tab PO DAILY MRX1 PRN PRN Reason: Migraine Headache Last Admin: 01/05/25 15:43 Dose: 1 tab Documented By: PJ Albuterol/Ipratropium (Albuterol/Iprat 2.5/0.5mg 3 Ml Ampul.Neb) 3 ml INHALE Q4H PRN PRN Reason: Shortness of Breath/Wheezing Last Admin: 01/06/25 05:33 Dose: 3 ml Documented By: JUAN C Aripiprazole (Aripiprazole 5 Mg Tablet) 5 mg PO DAILY [facility] Last Admin: 01/06/25 07:44 Dose: 5 mg Documented By: GÓMEZ Aspirin (Aspirin Enteric Coated 81 Mg Tablet.) 81 mg PO DAILY@1999 [facility] Last Admin: 01/05/25 19:39 Dose: 81 mg Documented By: SHARON Atorvastatin Calcium (Atorvastatin Calcium 80 Mg Tablet) 80 mg PO DAILY@1999 [facility] Last Admin: 01/05/25 19:39 Dose: 80 mg Documented By: SHARON Baclofen (Baclofen 20 Mg Tablet) 20 mg PO TID@0500,1199,1999 [facility] Last Admin: 01/06/25 05:01 Dose: 20 mg Documented By: SHARON Betamethasone Dipropion Augmented (Betamethasone Dip Aug 0.05% Cr 15 Gm Tube) 1 appl TOPICAL BID [facility]; Protocol Last Admin: 01/06/25 07:45 Dose: Not Given Documented By: GÓMEZ Non-Admin Reason: Patient Refused Calcium Carbonate/Cholecalciferol (Calcium + Vitamin D 250 Mg Tablet) 500 mg PO DAILY@1999 [facility] Last Admin: 01/05/25 19:39 Dose: 500 mg Documented By: SHARON Ceftriaxone Sodium (Ceftriaxone Sodium 1 Gm Vial) 1 gm IVPUSH Q24H [facility] Last Admin: 01/05/25 12:55 Dose: 1 gm Documented By: GARFIELD Duloxetine HCl (Duloxetine Hcl 60 Mg Capsule.Dr) 60 mg PO BID@ [facility] Last Admin: 01/06/25 05:02 Dose: 60 mg Documented By: SHARON Enoxaparin Sodium (Enoxaparin Sodium 40 Mg/0.4 Ml Syringe) 40 mg SUBCUT Q24H [facility] Last Admin: 01/06/25 07:42 Dose: 40 mg Documented By: GÓMEZ Gabapentin (Gabapentin 400 Mg Capsule) 1,200 mg PO TID@0500,1199,1999 [facility] Last Admin: 01/06/25 04:59 Dose: 1,200 mg Documented By: SHARON Guaifenesin/Dextromethorphan (Guaifenesin Dm 600/30 1 Tab Tab.Er.12h) 1 tab PO BID [facility] Last Admin: 01/06/25 07:43 Dose: 1 tab Documented By: GÓMEZ Azithromycin 500 mg/ Sodium (Chloride) 250 mls @ 125 mls/hr IV Q24H [facility] Stop: 01/07/25 13:59 Last Infusion: 01/05/25 17:55 Dose: Infused Documented By: GARFIELD Lorazepam (Lorazepam 0.5 Mg Tablet) 0.5 mg PO BID PRN PRN Reason: MODERATE Anxiety Last Admin: 01/06/25 05:09 Dose: 0.5 mg Documented By: SHARON Comments: per patient request Methylprednisolone Sodium Succinate (Methylprednisolone Sod Succ 125 Mg/2 Ml Vial) 40 mg IVPUSH Q12H [facility] Miconazole Nitrate (Miconazole Nitrate 2% Powder 85 Gm Bottle) 1 appl TOPICAL BID [facility]; Protocol Last Admin: 01/06/25 07:45 Dose: 1 appl Documented By: GÓMEZ Pat Own Med ( Hyoscyamine Sulfate 0.125 Mg Tablet) 0.25 mg PO Q6H PRN PRN Reason: Abdominal Discomfort Last Admin: 01/06/25 07:43 Dose: 0.25 mg Documented By: GÓMEZ Omeprazole (Omeprazole 20 Mg Capsule.Dr) 20 mg PO DAILY@06 [facility] Last Admin: 01/06/25 05:01 Dose: 20 mg Documented By: SHARON Oxcarbazepine (Oxcarbazepine 300 Mg Tablet) 300 mg PO BID [facility] Last Admin: 01/06/25 05:10 Dose: 300 mg Documented By: SHARON Comments: per patient request, medication given early Oxycodone HCl (Oxycodone Hcl Immed Release 5 Mg Tablet) 5 mg PO BID PRN PRN Reason: Severe Pain (Scale Score 7-10) Last Admin: 01/06/25 05:08 Dose: 5 mg Documented By: SHARON Polyethylene Glycol (Polyethylene Glycol 3350 17 Gm Powd.Pack) 17 gm PO DAILY PRN PRN Reason: Constipation Last Admin: 01/06/25 07:55 Dose: 17 gm Documented By: GÓMEZ Prazosin HCl (Prazosin Hcl 1 Mg Capsule) 2 mg PO DAILY@1999 [facility]; Protocol Last Admin: 01/05/25 19:37 Dose: 2 mg Documented By: SHARON Roflumilast (Roflumilast 500 Mcg Tablet) 500 mcg PO DAILY [facility] Last Admin: 01/06/25 07:43 Dose: 500 mcg Documented By: GÓMEZ Sodium Chloride (0.9 % Sodium Chloride Flush 3 Ml Syringe) 3 ml IVFLUSH QSHIFT [facility] Last Admin: 01/06/25 07:42 Dose: 3 ml Documented By: GÓMEZ Valsartan (Valsartan 40 Mg Tablet) 40 mg PO DAILY [facility]; Protocol Last Admin: 01/06/25 07:43 Dose: 40 mg Documented By: GÓMEZ Verapamil HCl (Verapamil Hcl 120 Mg Tablet) 120 mg PO BID@0500,2000 [facility]; Protocol Last Admin: 01/06/25 05:02 Dose: 120 mg Documented By: SHARON Labs 01/06/25 06:44 01/06/25 06:44 Labs: Laboratory Results - last 24 hr 01/06/25 06:44 MCV 98.4 H MCH 31.5 MCHC 32.0 RDW 14.1 Plt Count 382 MPV 9.0 L Immature Gran % (Auto) 0.8 H Neut % (Auto) 91.0 H Lymph % (Auto) 6.2 L [place] % (Auto) 1.9 L Eos % (Auto) 0.0 Baso % (Auto) 0.1 Lymph # (Auto) 0.6 L [place] # (Auto) 0.2 Eos # (Auto) 0.0 Baso # (Auto) 0.0 Abs Immat Gran (auto) 0.08 H Absolute Neuts (auto) 9.1 H Absolute Nucleated RBC 0.000 Nucleated RBC % (auto) 0.0 Smear Tech's Comments VERIFIED Anion Gap 12 Estim Creat Clear Calc 102.2 Estimated GFR > 60 Fasting Glucose 156 H Calcium 9.6 Total Bilirubin 0.2 AST 17 ALT 15 Alkaline Phosphatase 57 Total Protein 7.1 Albumin 4.5 Procalcitonin 0.02 Microbiology Microbiology Results: Microbiology 01/04/25 12:45 Blood Culture - Preliminary Blood - Venous No growth after 24 hours. 01/04/25 12:44 Blood Culture - Preliminary Blood - Venous No growth after 24 hours. Assessment and Plan (1) Acute exacerbation of COPD with asthma: Status: Acute (2) Trigeminal neuralgia: Status: Acute Plan d3 for 59yo F with COPD admitted for acute exacerbation acute COPD exacerbation - taper methylprednisolone 01/05-, continue nebs, continue ceftriaxone + azithromycin 01/05-, roflumilast acute/chronic hypoxic resp failure - wean O2 as tolerated, no CO2 retention chronic HFpEF HTN - valsartan, verapamil HLD - atorvastatin trigeminal neurlagia - duloxetine, gabapentin, baclofen, oxcarbazepine mood disorder - aripiprazole morbid obesity - diet/exercise counseling VTE ppx - enoxaparin dispo - PT consult In my clinical judgment, the patient requires continued inpatient hospitalization for the following reasons: dyspnea Total time managing care of this patient today: 35 minutes. Quality Stroke Does the patient have a stroke diagnosis?: No VTE Prior VTE?: No VTE Risk Level:: Medical - moderate - high VTE Device Contraindication: N/A - Device Ordered VTE Drug Contraindication: N/A - Med Ordered
[2025-01-06] MEDS: Aspirin Enteric Coated 81 MG TABLET.DR PO (20:38)
[2025-01-06] MEDS: Calcium + Vitamin D 250 MG TABLET 500 MG PO (20:40)
[2025-01-07] VITALS (15 sets, daily range): BP systolic 99–154; BP diastolic 50–78; PULSE 65–90; RESP 16–22; TEMP 35.9–36.7; O2SAT 93–97
[2025-01-07] MEDS: 0.9 % Sodium Chloride Flush 3 ML SYRINGE IVFLUSH ×4 (00:20→20:08)
[2025-01-07] MEDS: Albuterol/Iprat 2.5/0.5MG 3 ML AMPUL.NEB INHALE ×6 (01:42→20:27)
--- NOTE | 2025-01-07 04:18 | PC.NURSE ---
Patient requested early in shift not to be woken for vitals. Pt has heart monitor on with continuos O2 monitoring.
[2025-01-07] MEDS: oxyCODONE HCl Immed Release 5 MG TABLET PO ×3 (04:42→23:12)
[2025-01-07 06:21] LABS: Venous Blood Gas Refer to POC result
[2025-01-07 06:22] LABS: VBG HCO3 33 mmol/L (22-26); VBG O2 % Saturation 87.0 %
[2025-01-07 06:40] LABS: Anion Gap 12 (12-20); Blood Urea Nitrogen 13 mg/dL (9-16); Calcium 9.5 mg/dL (8.4-10.2); Carbon Dioxide 28 mmol/L (22-29); Chloride 108 mmol/L (96-108); Creatinine Clr Calc Pharmacy 93.2; Estimated Glomerular Filt Rate > 60; Potassium 4.3 mmol/L (3.3-5.1); Sodium 144 mmol/L (135-145)
[2025-01-07 06:47] LABS: B Type Natriuretic Peptide 95 pg/mL (<100)
[2025-01-07] MEDS: guaiFENesin DM 600/30 1 TAB TAB.ER.12H PO ×2 (07:27→20:06)
[2025-01-07] MEDS: Miconazole Nitrate 2% Powder 85 GM Bottle 1 APPL TOPICAL ×2 (07:29→20:07)
--- NOTE | 2025-01-07 09:50 | P.PNIM_ITS ---
Subjective Subjective Date of Service: 01/07/25 Interval History: still dizzy and short of breath with minimal activity coughing Review of Systems Review of Systems: Yes all other systems are reviewed and are negative Physical Exam 2 Vital Signs: Vital Signs: Last Vital Signs Temp 97.0 F 01/07/25 06:53 Pulse 76 01/07/25 07:26 Resp 20 01/07/25 07:26 BP 142/67 H 01/07/25 07:28 Pulse Ox 93 01/07/25 06:53 O2 Del Method Nasal Cannula 01/07/25 06:53 O2 Flow Rate 2 01/07/25 06:53 BMI result Body Mass Index 40.9 Gen: short of breath with any movement HEENT: sclera anicteric, moist mucus membranes Neck: supple Lungs: diminished Heart: regular rate and rhythm, no murmurs Abd: soft, non-tender, non-distended, obese Ext: no edema Skin: warm/well-perfused Neuro: alert and oriented x3, no focal findings Psych: appropriate affect Objective Data Active Medications Acetaminophen (Acetaminophen 325 Mg Tablet) 975 mg PO Q6H PRN PRN Reason: Pain, Mild 1-3,fever,headache Acetaminophen/Butalbital/Caffeine (Butalb/Acetamin/Caff 50/325/40 Tablet) 1 tab PO DAILY MRX1 PRN PRN Reason: Migraine Headache Last Admin: 01/05/25 15:43 Dose: 1 tab Documented By: PJ Albuterol/Ipratropium (Albuterol/Iprat 2.5/0.5mg 3 Ml Ampul.Neb) 3 ml INHALE Q4H PRN PRN Reason: Shortness of Breath/Wheezing Last Admin: 01/07/25 07:25 Dose: 3 ml Documented By: RAHEEM Aripiprazole (Aripiprazole 5 Mg Tablet) 5 mg PO DAILY [facility] Last Admin: 01/07/25 07:28 Dose: 5 mg Documented By: GÓMEZ Aspirin (Aspirin Enteric Coated 81 Mg Tablet.) 81 mg PO DAILY@1999 [facility] Last Admin: 01/06/25 20:38 Dose: 81 mg Documented By: SHARON Atorvastatin Calcium (Atorvastatin Calcium 80 Mg Tablet) 80 mg PO DAILY@1999 [facility] Last Admin: 01/06/25 20:39 Dose: 80 mg Documented By: SHARON Baclofen (Baclofen 20 Mg Tablet) 20 mg PO TID@0500,1199,1999 [facility] Last Admin: 01/07/25 04:44 Dose: 20 mg Documented By: TWILA Benzonatate (Benzonatate 100 Mg Capsule) 200 mg PO TID PRN PRN Reason: Cough Last Admin: 01/06/25 11:09 Dose: 200 mg Documented By: GÓMEZ Betamethasone Dipropion Augmented (Betamethasone Dip Aug 0.05% Cr 15 Gm Tube) 1 appl TOPICAL BID [facility]; Protocol Last Admin: 01/07/25 07:30 Dose: Not Given Documented By: GÓMEZ Non-Admin Reason: Patient Refused Calcium Carbonate/Cholecalciferol (Calcium + Vitamin D 250 Mg Tablet) 500 mg PO DAILY@1999 [facility] Last Admin: 01/06/25 20:40 Dose: 500 mg Documented By: SHARON Ceftriaxone Sodium (Ceftriaxone Sodium 1 Gm Vial) 1 gm IVPUSH Q24H [facility] Last Admin: 01/06/25 11:09 Dose: 1 gm Documented By: GÓMEZ Duloxetine HCl (Duloxetine Hcl 60 Mg Capsule.Dr) 60 mg PO BID@ [facility] Last Admin: 01/07/25 04:43 Dose: 60 mg Documented By: TWILA Enoxaparin Sodium (Enoxaparin Sodium 40 Mg/0.4 Ml Syringe) 40 mg SUBCUT Q24H [facility] Last Admin: 01/07/25 07:29 Dose: 40 mg Documented By: GÓMEZ Gabapentin (Gabapentin 400 Mg Capsule) 1,200 mg PO TID@499, [facility] Last Admin: 01/07/25 04:44 Dose: 1,200 mg Documented By: TWILA Guaifenesin/Dextromethorphan (Guaifenesin Dm 600/30 1 Tab Tab.Er.12h) 1 tab PO BID [facility] Last Admin: 01/07/25 07:27 Dose: 1 tab Documented By: GÓMEZ Azithromycin 500 mg/ Sodium (Chloride) 250 mls @ 125 mls/hr IV Q24H [facility] Stop: 01/07/25 13:59 Last Infusion: 01/06/25 13:10 Dose: Infused Documented By: GÓMEZ Lorazepam (Lorazepam 0.5 Mg Tablet) 0.5 mg PO BID PRN PRN Reason: MODERATE Anxiety Last Admin: 01/07/25 07:29 Dose: 0.5 mg Documented By: GÓMEZ Methylprednisolone Sodium Succinate (Methylprednisolone Sod Succ 125 Mg/2 Ml Vial) 40 mg IVPUSH Q12H [facility] Last Admin: 01/07/25 04:46 Dose: 40 mg Documented By: TWILA Miconazole Nitrate (Miconazole Nitrate 2% Powder 85 Gm Bottle) 1 appl TOPICAL BID [facility]; Protocol Last Admin: 01/07/25 07:29 Dose: 1 appl Documented By: GÓMEZ Pat Own Med ( Hyoscyamine Sulfate 0.125 Mg Tablet) 0.25 mg PO Q6H PRN PRN Reason: Abdominal Discomfort Last Admin: 01/06/25 07:43 Dose: 0.25 mg Documented By: GÓMEZ Omeprazole (Omeprazole 20 Mg Capsule.) 20 mg PO DAILY@629 [facility] Last Admin: 01/07/25 04:44 Dose: 20 mg Documented By: TWILA Comments: early per pt request Oxcarbazepine (Oxcarbazepine 300 Mg Tablet) 300 mg PO BID [facility] Last Admin: 01/07/25 04:48 Dose: 300 mg Documented By: TWILA Comments: patient requested med early Oxycodone HCl (Oxycodone Hcl Immed Release 5 Mg Tablet) 5 mg PO BID PRN PRN Reason: Severe Pain (Scale Score 7-10) Last Admin: 01/07/25 04:42 Dose: 5 mg Documented By: TWILA Polyethylene Glycol (Polyethylene Glycol 3350 17 Gm Powd.Pack) 17 gm PO DAILY PRN PRN Reason: Constipation Last Admin: 01/07/25 07:27 Dose: 17 gm Documented By: GÓMEZ Prazosin HCl (Prazosin Hcl 1 Mg Capsule) 2 mg PO DAILY@1999 [facility]; Protocol Last Admin: 01/06/25 20:41 Dose: 2 mg Documented By: SHARON Roflumilast (Roflumilast 500 Mcg Tablet) 500 mcg PO DAILY [facility] Last Admin: 01/07/25 07:28 Dose: 500 mcg Documented By: GÓMEZ Sodium Chloride (0.9 % Sodium Chloride Flush 3 Ml Syringe) 3 ml IVFLUSH QSHIFT [facility] Last Admin: 01/07/25 07:27 Dose: 3 ml Documented By: GÓMEZ Valsartan (Valsartan 40 Mg Tablet) 40 mg PO DAILY [facility]; Protocol Last Admin: 01/07/25 07:28 Dose: 40 mg Documented By: GÓMEZ Verapamil HCl (Verapamil Hcl 120 Mg Tablet) 120 mg PO BID@0500,2000 [facility]; Protocol Last Admin: 01/07/25 04:44 Dose: 120 mg Documented By: TWILA Labs 01/06/25 06:44 01/07/25 06:08 Labs: Laboratory Results - last 24 hr 01/06/25 01/07/25 01/07/25 06:44 06:08 06:17 VBG pH 7.41 VBG pCO2 52 VBG pO2 58 VBG HCO3 33 H VBG O2 Saturation 87.0 VBG Base Excess 8.0 Anion Gap 12 Estim Creat Clear Calc 93.2 Estimated GFR > 60 Random Glucose 98 Calcium 9.5 B-Natriuretic Peptide 95 Procalcitonin 0.02 Microbiology Microbiology Results: Microbiology 01/04/25 12:44 Blood Culture - Preliminary Blood - Venous No growth after 48 hours. 01/04/25 12:45 Blood Culture - Preliminary Blood - Venous No growth after 48 hours. Assessment and Plan (1) Acute exacerbation of COPD with asthma: Status: Acute (2) Trigeminal neuralgia: Status: Acute Plan d4 for 59yo F with COPD admitted for acute exacerbation acute COPD exacerbation - taper methylprednisolone 01/05-, continue nebs, continue ceftriaxone + azithromycin 01/05-, roflumilast acute/chronic hypoxic resp failure - wean O2 as tolerated, no CO2 retention chronic HFpEF HTN - valsartan, verapamil HLD - atorvastatin trigeminal neurlagia - duloxetine, gabapentin, baclofen, oxcarbazepine mood disorder - aripiprazole morbid obesity - diet/exercise counseling VTE ppx - enoxaparin dispo - PT consulted: likely home with VNA depending on ambulation status, reassess tomorrow In my clinical judgment, the patient requires continued inpatient hospitalization for the following reasons: dyspnea Total time managing care of this patient today: 35 minutes. Quality Stroke Does the patient have a stroke diagnosis?: No VTE Prior VTE?: No VTE Risk Level:: Medical - moderate - high VTE Device Contraindication: N/A - Device Ordered VTE Drug Contraindication: N/A - Med Ordered
[2025-01-07] MEDS: HYOSCYAMINE 0.125 MG 0.25 EACH PO (17:13)
[2025-01-07] MEDS: Aspirin Enteric Coated 81 MG TABLET.DR PO (20:06)
[2025-01-07] MEDS: Calcium + Vitamin D 250 MG TABLET 500 MG PO (20:06)
[2025-01-08] VITALS (8 sets, daily range): BP systolic 141–149; BP diastolic 69–97; PULSE 74–96; RESP 18–22; TEMP 36.6–36.7; O2SAT 94–96
[2025-01-08] MEDS: Albuterol/Iprat 2.5/0.5MG 3 ML AMPUL.NEB INHALE ×3 (06:31→11:39)
[2025-01-08] MEDS: guaiFENesin DM 600/30 1 TAB TAB.ER.12H PO (09:11)
[2025-01-08] MEDS: oxyCODONE HCl Immed Release 5 MG TABLET PO (09:11)
[2025-01-08] MEDS: HYOSCYAMINE 0.125 MG 0.25 EACH PO (09:12)
[2025-01-08] MEDS: Miconazole Nitrate 2% Powder 85 GM Bottle 1 APPL TOPICAL (09:12)
[2025-01-08] MEDS: 0.9 % Sodium Chloride Flush 3 ML SYRINGE IVFLUSH (09:12)
--- NOTE | 2025-01-08 13:19 | W.MHC.F2F ---
Service Date Service Date: 01/08/25 Encounter Date of encounter: 01/08/25 Reasons for Services Signs and symptoms assessed: see PT evaluation 01/06, 01/08 Reason for senior living: medication management, medication treatment and teach disease management Reason for physical therapy: home safety and mobility, therapeutic exercises, gait/transfer training, assess need for DME, ADL training and energy conservation MD Overseeing Care: Antione Segura Homebound: Leaving the home is medically contraindicated at this time without the asist of a device and/or another person due th the listed conditions above and below. Reason homebound: shortness of breath with minimal effort and weakness related to hospital stay Certification: Based on the above findings, I certify that this patient is confined to the home and needs intermittent senior living care, physical therapy and/or speech therapy, or continues to need occupational therapy. The patient is under my care, and I have initiated the establishment of the plan of care. The patient will be followed by a physician who will periodically review the plan of care. Time Spent With Patient Time: Total time managing care of this patient today ____ minutes.
--- NOTE | 2025-01-08 13:28 | P.DS_ITS ---
DS: Providers Provider Date of Service: 01/08/25 Date of admission: 01/04/25 15:35 Date of discharge: 01/08/25 Primary care physician: Antione Segura PA-C DS: Diagnosis Discharge Diagnosis (1) Acute exacerbation of COPD with asthma: Status: Acute (2) Acute and chronic respiratory failure with hypoxia: Status: Resolved (3) Morbid obesity: Status: Acute DS: Summary Hospital Course Hospital Course: From the history and physical by the admitting hospitalist, Desiree Songmez Peoples, 01/04/25: Zulma Alves is a 59 years old woman with past medical history significant for COPD on home oxygen on 1-3L/min, hyperlipidemia, nephrolithiasis, CVA, obesity, moderate , chronic pain and oxycodone, essential hypertension and multiple hospitalization due to COPD exacerbation presents to the emergency department complaining of shortness of breaths. She also reported worsening leg edema for which she has been using compression stockings. She denied cough, fever, chest pain, nausea, vomiting, abdominal pain or diarrhea. She denied tobacco smoking -quit 7 months ago. According to ED provider patient came with diffuse expiratory wheezes and hypoxia. In the ED, he was found to have stable vital signs except for mild degree of tachypnea. She is currently having adequate oxygen saturation on 2 L/min, at baseline. There is no fever. Blood workup showed no leukocytosis. Hemoglobin is 10.8 which is at baseline. Platelets are normal. Venous blood gas showed no respiratory acidosis and CO2 is elevated. There are no electrolyte imbalances. Renal function is adequate, lipase and LFTs are normal. BNP is normal (63). Troponin is 8.6. Urinalysis is normal. CXR is normal. ED tx: Solu-Medrol 125 mg IV, magnesium 2 g IV, Lasix 40 mg IV, albuterol nebs 2.5 mg x 2. Oxycodone 5 mg p.o.. 59yo F with COPD/asthma admitted to telemetry for acute exacerbation. She was treated with IV methylprednisolone and nebulized bronchodilators along with ceftriaxone and azithromycin. She was weaned to baseline home level of O2. She improved and was recommended for short-term rehabilitation/inpatient pulmonary rehabilitation but declined. She was discharged home with VNA services/home PT. She was sent home on a prednisone taper and doxycycline. Time Attestation Discharge Coordination Time (in mins): 35 Quality: Safe Use of Opioids Does Pt have an Active Cancer Diagnosis on the Problem List?: No Quality: Stroke Does the patient have a stroke diagnosis?: No Physical Exam Vital Signs: Vital Signs: Last Vital Signs Temp 98.1 F 01/08/25 12:00 Pulse 96 01/08/25 12:00 Resp 22 H 01/08/25 12:00 BP 141/69 H 01/08/25 12:00 Pulse Ox 95 01/08/25 12:00 O2 Del Method Nasal Cannula 01/08/25 12:00 O2 Flow Rate 2 01/08/25 12:00 BMI result Body Mass Index 40.9 Gen: in no acute distress HEENT: sclera anicteric, moist mucus membranes Neck: supple Lungs: diminished Heart: regular rate and rhythm, no murmurs Abd: soft, non-tender, non-distended, obese Ext: no edema Skin: warm/well-perfused Neuro: alert and oriented x3, no focal findings Psych: appropriate affect DS: Data Data Completed and Pending Completed studies during hospitalization [Text1]: Laboratory Results WBC 10.0 X10*3/uL (4.8-10.8) 01/06/25 06:44 RBC 3.68 X10*6/uL (4.20-5.50) L 01/06/25 06:44 Hgb 11.6 g/dl (12.0-16.0) L 01/06/25 06:44 Hct 36.2 % (37.0-47.0) L 01/06/25 06:44 MCV 98.4 fL (80.0-98.0) H 01/06/25 06:44 MCH 31.5 pg (27.0-33.0) 01/06/25 06:44 MCHC 32.0 g/dl (31.0-35.0) 01/06/25 06:44 RDW 14.1 % (11.0-16.0) 01/06/25 06:44 Plt Count 382 X10*3/uL (160-400) 01/06/25 06:44 MPV 9.0 fL (9.4-12.3) L 01/06/25 06:44 Immature Gran % (Auto) 0.8 % (0.0-0.4) H 01/06/25 06:44 Neut % (Auto) 91.0 % (45-73) H 01/06/25 06:44 Lymph % (Auto) 6.2 % (20-40) L 01/06/25 06:44 [place] % (Auto) 1.9 % (2-11) L 01/06/25 06:44 Eos % (Auto) 0.0 % (0-4) 01/06/25 06:44 Baso % (Auto) 0.1 % (0-2) 01/06/25 06:44 Lymph # (Auto) 0.6 X10*3/uL (1.2-4.9) L 01/06/25 06:44 [place] # (Auto) 0.2 X10*3/uL (0.1-1.2) 01/06/25 06:44 Eos # (Auto) 0.0 X10*3/uL (0.0-0.4) 01/06/25 06:44 Baso # (Auto) 0.0 X10*3/uL (0.0-0.2) 01/06/25 06:44 Abs Immat Gran (auto) 0.08 X10*3/uL (0.00-0.03) H 01/06/25 06:44 Absolute Neuts (auto) 9.1 x10*3/uL (2.0-8.3) H 01/06/25 06:44 Absolute Nucleated RBC 0.000 X10*3/uL (0.0-0.012) 01/06/25 06:44 Nucleated RBC % (auto) 0.0 /100WBC (0.0-0.2) 01/06/25 06:44 Smear Tech's Comments VERIFIED 01/06/25 06:44 PT 10.7 SEC (10.9-12.4) L 01/04/25 12:44 INR 0.9 (0.9-1.1) 01/04/25 12:44 O2 Saturation 99.0 % 01/04/25 13:53 ABG pH at Pt Temp 7.46 (7.35-7.45) H 01/04/25 13:53 ABG pCO2 at Pt Temp 43 mmHg (32-45) 01/04/25 13:53 ABG pO2 at Pt Temp 97 mmHg (83-108) 01/04/25 13:53 ABG HCO3 31 mmol/L (22-26) H 01/04/25 13:53 ABG Base Excess (Actual) 6.6 mmol/L 01/04/25 13:53 VBG pH 7.41 (7.32-7.43) 01/07/25 06:17 VBG pCO2 52 mmHg 01/07/25 06:17 VBG pO2 58 mmHg 01/07/25 06:17 VBG HCO3 33 mmol/L (22-26) H 01/07/25 06:17 VBG O2 Saturation 87.0 % 01/07/25 06:17 VBG Base Excess 8.0 mmol/L 01/07/25 06:17 Sodium 144 mmol/L (135-145) 01/07/25 06:08 Potassium 4.3 mmol/L (3.3-5.1) 01/07/25 06:08 Chloride 108 mmol/L (96-108) 01/07/25 06:08 Carbon Dioxide 28 mmol/L (22-29) 01/07/25 06:08 Anion Gap 12 (12-20) 01/07/25 06:08 BUN 13 mg/dL (9-16) 01/07/25 06:08 Creatinine 0.68 mg/dL (0.5-1.4) 01/07/25 06:08 Estim Creat Clear Calc 93.2 01/07/25 06:08 Estimated GFR > 60 01/07/25 06:08 Random Glucose 98 mg/dL (60-115) 01/07/25 06:08 Fasting Glucose 156 mg/dL (60-99) H 01/06/25 06:44 Lactic Acid 1.6 mmol/L (0.5-2.0) 01/04/25 12:44 Calcium 9.5 mg/dL (8.4-10.2) 01/07/25 06:08 Magnesium 2.0 mg/dL (1.6-2.6) 01/05/25 06:16 Total Bilirubin 0.2 mg/dL (0.0-1.0) 01/06/25 06:44 Direct Bilirubin 0.1 mg/dL (0.0-0.5) 01/04/25 12:44 AST 17 U/L (5-31) 01/06/25 06:44 ALT 15 U/L (0-31) 01/06/25 06:44 Alkaline Phosphatase 57 U/L (39-117) 01/06/25 06:44 Troponin I High Sens 8.6 ng/L (<3.5-17.0) 01/04/25 12:44 B-Natriuretic Peptide 95 pg/mL (<100) 01/07/25 06:08 Total Protein 7.1 g/dL (6.5-8.0) 01/06/25 06:44 Albumin 4.5 g/dL (3.5-5.0) 01/06/25 06:44 Lipase 16 U/L (8-78) 01/04/25 12:44 Procalcitonin 0.02 ng/mL 01/06/25 06:44 Urine Color Yellow 01/04/25 13:55 Urine Appearance Cloudy 01/04/25 13:55 Urine pH >= 9.0 (5.0-9.0) 01/04/25 13:55 Ur Specific [place] 1.010 (1.005-1.025) 01/04/25 13:55 Urine Protein Negative mg/dL (Neg-Trace) 01/04/25 13:55 Urine Glucose (UA) Negative mg/dL (Negative) 01/04/25 13:55 Urine Ketones Negative mg/dL (Negative) 01/04/25 13:55 Urine Blood Negative (Negative) 01/04/25 13:55 Urine Nitrite Negative (Negative) 01/04/25 13:55 Ur Leukocyte Esterase Negative (Negative) 01/04/25 13:55 Influenza Type A (PCR) NEGATIVE (Negative) 01/04/25 12:45 Influenza Type B (PCR) NEGATIVE (Negative) 01/04/25 12:45 RSV RNA Qual (PCR) NEGATIVE (Negative) 01/04/25 12:45 SARS-CoV-2 RNA (RT-PCR) NEGATIVE (Negative) 01/04/25 12:45 Impressions Chest X-Ray 01/04/25 11:54 IMPRESSION: No acute disease Electronically signed by: Deric Meeks MD 01/04/2025 01:07 PM EDT Discharge Plan Discharge Anticipated Discharge Date/Time: 01/08/25 13:21 Patient Disposition: Home Health Service Discharge Diagnosis: COPD/asthma exacerbation Referrals: Antione Segura PA-C [Primary Care Provider, Internal Medicine] - 1 Week Discharge Medications: New doxycycline monohydrate 100 mg tablet 100 mg PO BID Qty: 4 0RF prednisone 10 mg tablet 10 mg PO DIRECTED Qty: 20 0RF Rx Instructions: 40 mg daily x 2 days then 30 mg daily x 2 days, then 20 mg daily x 2 days, then 10 mg daily x 2 days Continued ipratropium-albuterol 0.5 mg-3 mg(2.5 mg base)/3 mL solution for nebulization 3 ml inhalation Q4H PRN (Reason: for dyspnea) Qty: 180 11RF valsartan 40 mg tablet 40 mg PO DAILY Qty: 90 2RF Protocol: Hold for SBP< HOLD for SBP < : 90 verapamil 120 mg tablet 120 mg PO BID@0500,2000 baclofen 20 mg tablet 20 mg PO TID@0500,1200,1999 benzonatate 100 mg Capsule 100 mg PO TID PRN (Reason: Cough) Qty: 30 0RF Mucus DM 30-600 mg Tablet Extended Release 12 Hr 1 tab PO BID Qty: 20 0RF aripiprazole [Abilify] 5 mg tablet 5 mg PO DAILY oxcarbazepine 300 mg tablet 300 mg PO BID atorvastatin 80 mg tablet 80 mg PO DAILY@1999 dkqqezrdev-zfacxaqiykimz-ofkd 50-325-40 mg tablet 1 tab PO DAILY MRX1 PRN (Reason: Migraine Headache) hyoscyamine sulfate 0.125 mg tablet 0.25 mg PO Q6H PRN (Reason: Abdominal Discomfort) gabapentin 300 mg capsule 1,200 mg PO TID@0500,1200,1999 duloxetine 60 mg capsule,delayed release(DR/EC) 60 mg PO BID@0500,2000 (DME) nebulizer and compressor Device See Rx Instructions .Route Qty: 1 0RF Rx Instructions: As directed albuterol sulfate 90 mcg/actuation HFA aerosol inhaler 2 puff inhalation Q4H PRN (Reason: Shortness Of Breath Or Wheezing) aspirin 81 mg tablet,delayed release (DR/EC) 81 mg PO DAILY@2000 omeprazole 20 mg Capsule,Delayed Release(Dr/Ec) 20 mg PO DAILY@0630 Qty: 0 0RF oxycodone 5 mg tablet 5 mg PO BID PRN (Reason: Severe Pain (Scale Score 7-10)) Qty: 10 0RF clobetasol 0.05 % cream 1 appl topical BID polyethylene glycol 3350 [Miralax] 17 gram/dose Powder 17 g PO DAILY PRN (Reason: Constipation) lidocaine 4 % Gel 1 appl TOPICAL TID PRN (Reason: Pain) lorazepam 0.5 mg tablet 0.5 mg PO BID PRN (Reason: MODERATE Anxiety) calcium carbonate-vitamin D3 600 mg-5 mcg (200 unit) tablet 1 tab PO DAILY@1999 roflumilast [Daliresp] 500 mcg tablet 500 mcg PO DAILY 30 Days Qty: 30 11RF prazosin 2 mg capsule 2 mg PO DAILY@1999 (DME) Oxygen Home Use Kit See Rx Instructions .Route Rx Instructions: As directed Discharge Orders: Discharge Order (Routine); Ordered 01/08/25 Ordered By: Saray Redman Diet: Advance to usual diet Activity on Discharge: As tolerated Stand Alone Forms: Patient Portal Discharge page Print Language: German Care Plan Goals: respiratory health Health Concerns: COPD/asthma exacerbation Plan of Treatment: home with VNA services/home PT prednisone 10 mg tabs, taper as follows: 40 mg (4 tabs) daily x 2 days, then 30 mg (3 tabs) daily x 2 days, then 20 mg (2 tabs) daily x 2 days, then 10 mg (1 tab) daily x 2 days doxycycline 100 mg twice daily x 2 days Please follow up with your primary care doctor within 1 week. Return to the hospital if you experience recurrent or worsening symptoms. Assessment: See Discharge Summary.
--- NOTE | 2025-01-08 14:20 | MHC.CM.PN ---
PT TO DC HOME TODAY WITH RESUMPTION OF [facility] TO TRANSPORT
== END 2025-01-08 14:21 | disposition home health service (06) | DRG 140 ==
LOC: HO.ED 16:27 → HO.EDOVER 18:13 → HO.IMC 19:25
PROVIDERS: Hospitalist; Admitting Provider Internal Medicine; Emergency Provider Emergency Medicine; PCP Physician Assistant Surgical; Visit Provider Family Medicine
DX: J44.1 Chronic obstructive pulmonary disease with (acute) exacerbation (principal); J96.21 Acute and chronic respiratory failure with hypoxia; I50.32 Chronic diastolic (congestive) heart failure; I11.0 Hypertensive heart disease with heart failure; J96.22 Acute and chronic respiratory failure with hypercapnia; Z99.81 Dependence on supplemental oxygen; E66.813 Obesity, class 3; E78.5 Hyperlipidemia, unspecified; F39 Unspecified mood [affective] disorder; G50.0 Trigeminal neuralgia; M54.9 Dorsalgia, unspecified; G89.29 Other chronic pain; I35.0 Nonrheumatic aortic (valve) stenosis; J45.901 Unspecified asthma with (acute) exacerbation; Z71.3 Dietary counseling and surveillance; Z68.41 Body mass index [BMI] 40.0-44.9, adult; Z20.822 Contact with and (suspected) exposure to COVID-19; Z79.82 Long term (current) use of aspirin; Z87.891 Personal history of nicotine dependence; Z79.899 Other long term (current) drug therapy
CPT/HCPCS: 36415; 71045; 80048; 80053; 80076; 81003; 82803; 83605; 83690; 83735; 83880; 84145; 84484; 85025; 85610; 87040; 87637; 93005; 94640; 94660; 97162; 97530; 99285; J0456; J0696; J1650; J2919; J3475

== ENCOUNTER → 2025-01-04 12:12 | Outpatient (BNV) | payer BC, SELFPAY | PROVIDERS: Admitting Provider Internal Medicine; Emergency Provider Emergency Medicine; PCP Physician Assistant Surgical; Visit Provider Internal Medicine Cardiovascular Disease | DX: R06.02 Shortness of breath (principal) | CPT/HCPCS: 93010 ==

== ENCOUNTER → 2025-01-04 12:13 | Outpatient (BNV) | payer BC, SELFPAY | PROVIDERS: Emergency Provider Emergency Medicine; PCP Physician Assistant Surgical; Visit Provider Radiology Diagnostic Radiology | DX: R06.02 Shortness of breath (principal) | CPT/HCPCS: 71045 ==

== ENCOUNTER → 2025-01-04 15:35 | Outpatient (BNV) | payer BC, SELFPAY | PROVIDERS: Admitting Provider Internal Medicine; Emergency Provider Emergency Medicine; PCP Physician Assistant Surgical; Visit Provider Internal Medicine | DX: J44.1 Chronic obstructive pulmonary disease with (acute) exacerbation (principal); G50.0 Trigeminal neuralgia | CPT/HCPCS: 99223; 99232; 99239; G0180 ==

== ENCOUNTER 2025-01-20 05:36 | Emergency (ER) | payer BC, SELFPAY ==
[2025-01-20 05:45] VITALS: BP 144/68; BP 158/71; PULSE 79; PULSE 80; RESP 18; TEMP 36.6; O2SAT 96; O2SAT 97; BMI 41.0
[2025-01-20 05:50] VITALS: BP 144/68; PULSE 79; RESP 18; TEMP 36.6; O2SAT 96
[2025-01-20 07:00] VITALS: BP 145/73; PULSE 66; O2SAT 98
--- NOTE | 2025-01-20 07:44 | PC.NURSE ---
Care of Pt assumed at change of shift. Pt resting quietly at this time. NAD noted, S pet care technician reports Pt is requesting to be d/c'd at this time as she has a visiting nurse that comes to her home for approx [phone] and would like to be home for this visit. Dr. Escalona made aware. Dispo pending.
--- NOTE | 2025-01-20 07:55 | ED.GENADULT ---
HPI - General Adult General Chief complaint: General Medical Stated complaint: HTN Time Seen by Provider: 01/20/25 07:54 Source: patient Mode of arrival: EMS Limitations: no limitations History of Present Illness ED Provider: Dr. Bakari Escalona HPI narrative: 60-year-old female with a history of COPD on home oxygen, hypertension, asthma, trigeminal neuralgia, hyperlipidemia, anxiety disorder, lacunar stroke who presents emergency department for evaluation of headache and elevated blood pressure. Patient states that prior to coming to the emergency department she woke up with a occipital headache. She states she has had similar headaches in the past. She states that the headache was 8/10 and at the time of my evaluation of the headache is now 1 to 2/10. Patient states that she checked her blood pressure and it was 213/101. The patient did not take her morning blood pressure medications (valsartan and verapamil). She states she felt very anxious and called an ambulance and was brought to emergency department for evaluation. Since being in the emergency department she states she is feeling significantly better, her blood pressure is also improved. Related Data Home Medications ?Medication ?Instructions ?Recorded ?Confirmed atorvastatin 80 mg tablet 80 mg PO DAILY@199903/04/23 01/04/25 metvsdpvda-paaercwgnjftm-sxbwwxbp 1 tab PO DAILY MRX1 PRN Migraine 03/04/23 01/04/25 50 mg-325 mg-40 mg tablet Headache duloxetine 60 mg capsule,delayed 60 mg PO BID@050,199903/04/23 01/04/25 release gabapentin 300 mg capsule 1,200 mg PO TID@0500,1200,199903/04/23 01/04/25 hyoscyamine sulfate 0.125 mg tablet 0.25 mg PO Q6H PRN Abdominal 03/04/23 01/04/25 Discomfort Oxygen Home Use 04/16/23 10/29/24 prazosin 2 mg capsule 2 mg PO DAILY@199904/16/23 01/04/25 albuterol sulfate 90 mcg/actuation 2 puff inhalation Q4H PRN 01/31/24 01/04/25 aerosol inhaler Shortness Of Breath Or Wheezing aspirin 81 mg tablet,delayed 81 mg PO DAILY@199905/22/24 01/04/25 release calcium 600 mg (as 1 tab PO DAILY@199906/20/24 01/04/25 carbonate)-vitamin D3 5 mcg (200 unit) tablet verapamil 120 mg tablet 120 mg PO BID@0500,199907/02/24 01/04/25 baclofen 20 mg tablet 20 mg PO TID@0500,1199,199910/29/24 01/04/25 aripiprazole 5 mg tablet (Abilify) 5 mg PO DAILY 12/01/24 01/04/25 oxcarbazepine 300 mg tablet 300 mg PO BID 12/21/24 01/04/25 clobetasol 0.05 % topical cream 1 appl topical BID 01/04/25 01/04/25 lidocaine 4 % topical gel 1 appl topical TID PRN Pain 01/04/25 01/04/25 lorazepam 0.5 mg tablet 0.5 mg PO BID PRN MODERATE Anxiety 01/04/25 01/04/25 polyethylene glycol 3350 17 17 g PO DAILY PRN Constipation 01/04/25 01/04/25 gram/dose oral powder (Miralax) Previous Rx's ?Medication ?Instructions ?Recorded nebulizer and compressor #1 ea 12/16/23 ipratropium 0.5 mg-albuterol 3 mg 3 ml inhalation Q4H PRN for 03/02/24 (2.5 mg base)/3 mL nebulization dyspnea #180 mL soln roflumilast 500 mcg tablet 500 mcg PO DAILY 30 days #30 tabs 10/06/24 (Daliresp) benzonatate 100 mg capsule 100 mg PO TID PRN Cough #30 caps 10/31/24 dextromethorphan-guaifenesin 30 1 tab PO BID #20 tabs 10/31/24 mg-600 mg tablet extended [id number] hr (Mucus DM) omeprazole 20 mg capsule,delayed 20 mg PO DAILY@0630 #0 caps 12/13/24 release oxycodone 5 mg tablet 5 mg PO BID PRN Severe Pain (Scale 12/13/24 Score 7-10) #10 tabs valsartan 40 mg tablet 40 mg PO DAILY #90 tabs 12/26/24 doxycycline monohydrate 100 mg 100 mg PO BID #4 tabs 01/08/25 tablet prednisone 10 mg tablet 10 mg PO DIRECTED #20 tabs 01/08/25 Allergies Allergy/AdvReac Type Severity Reaction Status Date / Time Iodinated Contrast Media (IV Allergy Intermediate HIVES Verified 01/20/25 05:49 CONTRAST) latex (LATEX) Allergy Unknown RASH Verified 01/20/25 05:49 adhesive tape Allergy Rash Verified 01/20/25 05:49 morphine (MORPHINE) AdvReac Unknown VOMITING Verified 01/20/25 05:49 Review of Systems Review of Systems: Yes all other systems are reviewed and are negative PMFSH Past Medical History Medical History Leukocytosis Chronic lung disease Chronic lung disease Hypoxia Panic disorder Hypertension Chronic hypercapnic respiratory failure Aortic stenosis Obesity (BMI 30-39.9) Asthma Acute exacerbation of chronic obstructive pulmonary disease Chronic lung disease Hypogammaglobulinemia Smoker JUANITO (obstructive sleep apnea) Allergies Elevated troponin COPD (chronic obstructive pulmonary disease) Trigeminal neuralgia Pulmonary nodules Mixed hyperlipidemia Peripheral neuropathy Tobacco use disorder Mood disorder Surgical History History of esophagogastroduodenoscopy (EGD) History of colonoscopy History of lumbar discectomy History of tubal ligation History of excision of mass History of shoulder surgery Social History Social History Household Members: Family Household Members Other:: dog Housing: House Do you presently have visiting nurse or other home services: Yes Alcohol intake: never Comment: rings appropriately Patient Tobacco Use Status: Former Tobacco user Tobacco use type: Cigarette Cigarette Packs Per Day: 4 Cigarettes Per Day: 80.0 Years Smoked: 40 Smoked in Last 30 Days: No e-Cigarette/Vaping Use: Never Used Second Hand Smoke Exposure: No Use of substances other than those prescribed or required for medical reasons: No Substance Use Type: Marijuana Advance Directives: Yes Advance Directives on File: Yes Advance Directives Date on File: 03/09/23 Patient : No service: No Physical Exam ED Vital Signs: Vital Signs - 24 hr 01/20/25 05:45 01/20/25 05:50 01/20/25 07:00 Temperature 97.9 F 97.9 F Pulse Rate 79 79 66 Respiratory Rate 18 18 Blood Pressure 144/68 H 144/68 H 145/73 H Pulse Oximetry 96 96 98 Oxygen Delivery Method Nasal Cannula Nasal Cannula Nasal Cannula Oxygen Flow Rate 2 BMI result Body Mass Index 41.0 Vital signs revealed an elevated blood pressure of 144/68 otherwise unremarkable Exam: General: Awake, alert in no distress, weight 92.25 kg, elevated BMI of 41 kg per m2 Head: Normocephalic, atraumatic EENT: PERRL, Lids normal, sclera normal, conjunctiva normal, nose normal , ears normal, throat without erythema or exudates Neck: Supple, no adenopathy Lung: breath sounds symmetric, no wheezing, rales or rhonchi Chest: symmetric movement, nontender Heart: regular rate and rhythm, normal S1, S2 no murmurs or rubs Abdomen: soft, non-tender, nondistended, normal bowel sounds Back: no vertebral tenderness, no CVAT Extremities: no deformities, moves all extremities symmetrically Neuro: Awake, alert, oriented, normal speech, cranial nerves intact, moves all extremities symmetrically Psych: Pleasant, cooperative Medical Decision Making Medical Decision Making MDM Narrative: 60-year-old female with a history of COPD on home oxygen, hypertension, asthma, trigeminal neuralgia, hyperlipidemia, anxiety disorder, lacunar stroke who presents emergency department for evaluation of headache and elevated blood pressure. Patient states that prior to coming to the emergency department she woke up with a occipital headache. She states she has had similar headaches in the past. She states that the headache was 8/10 and at the time of my evaluation of the headache is now 1 to 2/10. Patient states that she checked her blood pressure and it was 213/101. The patient did not take her morning blood pressure medications (valsartan and verapamil). She states she felt very anxious and called an ambulance and was brought to emergency department for evaluation. Since being in the emergency department she states she is feeling significantly better, her blood pressure is also improved. Vital signs revealed elevated blood pressure of 144/68 otherwise unremarkable. Physical examination was unremarkable as well. Differential diagnosis: ?Includes but is not limited to intracranial bleed, stroke, migraine headache, nonspecific headache, essential hypertension, Course: 08:13 The patient's presentation is consistent with migraine-like headache causing elevation in her blood pressure. I did discuss this with her. At this time I do not think that she needs imaging or laboratory evaluation since her symptoms have almost completely resolved in her blood pressure has improved without treatment. Patient was given Tylenol 975 mg orally. She was advised to go home and take her blood pressure medications and her other medications as prescribed by her PCP. She was given printed and verbal instructions and discharged home. Admission/Observation Consideration of admission/observation: Escalation of care including admission/observation considered (Yes) Chronic Conditions Patient?s care impacted by: Hypertension and Other (Hyperlipidemia) Discharge Plan Discharge Clinical Impression: Headache, Elevated blood pressure reading, Essential (primary) hypertension Patient Disposition: Home, Self-Care Instructions: Acute Headache (ED) Additional Instructions: At this time, I believe that your elevated blood pressure was probably caused by your headache. It is reassuring that your headache has improved and your blood pressures improved, at this time I do not think that you need further evaluation and it is okay to send you home. You were given Tylenol 975 mg orally. Take extra-strength Tylenol (acetaminophen) 500 mg pills, 2 pills every 6 hours as needed for pain or fever. When you get home take your blood pressure medications and take your other medications as prescribed by your provider. Follow-up with your doctor in 2 days. Please return to the emergency department if your symptoms get worse or if you develop any symptoms that are concerning to you. Prescriptions: No Action ipratropium-albuterol 0.5 mg-3 mg(2.5 mg base)/3 mL solution for nebulization 3 ml inhalation Q4H PRN (Reason: for dyspnea) Qty: 180 11RF valsartan 40 mg tablet 40 mg PO DAILY Qty: 90 2RF Protocol: Hold for SBP< HOLD for SBP < : 90 verapamil 120 mg tablet 120 mg PO BID@0500,2000 baclofen 20 mg tablet 20 mg PO TID@0500,1200,2000 benzonatate 100 mg Capsule 100 mg PO TID PRN (Reason: Cough) Qty: 30 0RF Mucus DM 30-600 mg Tablet Extended Release 12 Hr 1 tab PO BID Qty: 20 0RF aripiprazole [Abilify] 5 mg tablet 5 mg PO DAILY oxcarbazepine 300 mg tablet 300 mg PO BID atorvastatin 80 mg tablet 80 mg PO DAILY@1999 ygeknodsci-bsvfdcvyajrim-bidc 50-325-40 mg tablet 1 tab PO DAILY MRX1 PRN (Reason: Migraine Headache) hyoscyamine sulfate 0.125 mg tablet 0.25 mg PO Q6H PRN (Reason: Abdominal Discomfort) gabapentin 300 mg capsule 1,200 mg PO TID@0500,1200,2000 duloxetine 60 mg capsule,delayed release(DR/EC) 60 mg PO BID@ (DME) nebulizer and compressor Device See Rx Instructions .Route Qty: 1 0RF Rx Instructions: As directed albuterol sulfate 90 mcg/actuation HFA aerosol inhaler 2 puff inhalation Q4H PRN (Reason: Shortness Of Breath Or Wheezing) aspirin 81 mg tablet,delayed release (DR/EC) 81 mg PO DAILY@1999 omeprazole 20 mg Capsule,Delayed Release(Dr/Ec) 20 mg PO DAILY@0630 Qty: 0 0RF oxycodone 5 mg tablet 5 mg PO BID PRN (Reason: Severe Pain (Scale Score 7-10)) Qty: 10 0RF clobetasol 0.05 % cream 1 appl topical BID polyethylene glycol 3350 [Miralax] 17 gram/dose Powder 17 g PO DAILY PRN (Reason: Constipation) lidocaine 4 % Gel 1 appl TOPICAL TID PRN (Reason: Pain) lorazepam 0.5 mg tablet 0.5 mg PO BID PRN (Reason: MODERATE Anxiety) doxycycline monohydrate 100 mg tablet 100 mg PO BID Qty: 4 0RF prednisone 10 mg tablet 10 mg PO DIRECTED Qty: 20 0RF Rx Instructions: 40 mg daily x 2 days then 30 mg daily x 2 days, then 20 mg daily x 2 days, then 10 mg daily x 2 days calcium carbonate-vitamin D3 600 mg-5 mcg (200 unit) tablet 1 tab PO DAILY@1999 roflumilast [Daliresp] 500 mcg tablet 500 mcg PO DAILY 30 Days Qty: 30 11RF prazosin 2 mg capsule 2 mg PO DAILY@1999 (DME) Oxygen Home Use Kit See Rx Instructions .Route Rx Instructions: As directed Print Language: Comoran
[2025-01-20 08:15] VITALS: BP 141/69; PULSE 70; RESP 17; O2SAT 98
--- NOTE | 2025-01-20 08:21 | PC.NURSE ---
Call placed to [facility] for transportation home. No answer at home--voicemail left on home phone with instruction to bring portable O2 at time of rock picker for commute home. Call placed to cell phone as well with no answer/straight to VM.
[2025-01-20 09:01] VITALS: BP 141/69; PULSE 70; RESP 17; TEMP -17.7; TEMP 0; O2SAT 98
== END 2025-01-20 09:45 | disposition home or self-care (01) ==
PROVIDERS: Emergency Provider Emergency Medicine Emergency Medical Services
DX: R51.9 Headache, unspecified (principal); I10 Essential (primary) hypertension; Z79.899 Other long term (current) drug therapy
CPT/HCPCS: 99283; 99284

== ENCOUNTER 2025-01-21 22:29 | Emergency (ER) | payer BC, SELFPAY ==
--- NOTE | ~2025-01-21 | XR_ITS ---
CLINICAL HISTORY: dyspnea, cough 1 view chest x-ray Comparison: Chest x-ray from 01/04/2025 Findings: No consolidation, pneumothorax, or pleural effusion. Low lung volumes with minimal atelectasis. Mild emphysematous changes are redemonstrated. Imaged osseous structures of the imaged mediastinum appear unchanged. IMPRESSION: No consolidation. This document has been electronically signed by: Doroteo Green MD on 01/21/2025 23:59:52
[2025-01-21 22:36] VITALS: BP 137/73; BP 147/64; PULSE 114; PULSE 96; RESP 17; TEMP 36.4; O2SAT 96; BMI 42.0
--- NOTE | 2025-01-21 22:39 | ECG_ITS ---
Test Reason : SOB Blood Pressure : */* mmHG Vent. Rate : 91 BPM Atrial Rate : 91 BPM P-R Int : 134 ms QRS Dur : 82 ms QT Int : 364 ms P-R-T Axes : 67 69 45 degrees QTcB Int : 447 ms Normal sinus rhythm Normal ECG When compared with ECG of 04-Jan-2025 12:47, Nonspecific T wave abnormality, improved in Inferior leads Nonspecific T wave abnormality no longer evident in Anterior leads Referred By: Natasha Giordano Electronically Signed By: Eladio Nelson
--- NOTE | 2025-01-21 22:43 | ED.SOB ---
HPI - SOB/Dyspnea General Chief Complaint: Dyspnea Stated Complaint: COPD ASTHMA, WHEEZING Time Seen by Provider: 01/21/25 22:38 Source: patient, EMS and old records reviewed Mode of arrival: EMS Limitations: no limitations History of Present Illness ED Provider: Dr. Natasha Giordano HPI Narrative: 60-year-old female with extensive past medical history including COPD, trigeminal neuralgia, hypertension, aortic stenosis presenting by EMS with severe dyspnea. EMS reports they are called out for an asthma exacerbation, found the patient to be in the low 90s on room air, severely tachypneic and not moving much air. She was started on a nebulizer treatment, given IV magnesium, Solu-Medrol, IM epi with improvement in her symptoms. Patient is unable to give much history secondary to her clinical condition. She is speaking in 2-3 word sentences. States that she was recently hospitalized, just left the hospital yesterday as a matter of fact after being treated for hypertension. States she did not really go outside much accept for to check the mail today. Has been using all of her medications as prescribed. She is not currently on steroids. No reported fever. Chronic cough is unchanged. No known sick contacts. Related Data Home Medications ?Medication ?Instructions ?Recorded ?Confirmed atorvastatin 80 mg tablet 80 mg PO DAILY@199903/04/23 01/04/25 npnwxfzafd-sjfikubcqsajb-fgblurbu 1 tab PO DAILY MRX1 PRN Migraine 03/04/23 01/04/25 50 mg-325 mg-40 mg tablet Headache duloxetine 60 mg capsule,delayed 60 mg PO BID@0500,199903/04/23 01/04/25 release gabapentin 300 mg capsule 1,200 mg PO TID@0500,1200,199903/04/23 01/04/25 hyoscyamine sulfate 0.125 mg tablet 0.25 mg PO Q6H PRN Abdominal 03/04/23 01/04/25 Discomfort Oxygen Home Use 04/16/23 10/29/24 prazosin 2 mg capsule 2 mg PO DAILY@199904/16/23 01/04/25 albuterol sulfate 90 mcg/actuation 2 puff inhalation Q4H PRN 01/31/24 01/04/25 aerosol inhaler Shortness Of Breath Or Wheezing aspirin 81 mg tablet,delayed 81 mg PO DAILY@2000 12/09/24 07/24/25 release calcium 600 mg (as 1 tab PO DAILY@199906/20/24 01/04/25 carbonate)-vitamin D3 5 mcg (200 unit) tablet verapamil 120 mg tablet 120 mg PO BID@050,199907/02/24 01/04/25 baclofen 20 mg tablet 20 mg PO TID@0500,1200,199910/29/24 01/04/25 aripiprazole 5 mg tablet (Abilify) 5 mg PO DAILY 12/01/24 01/04/25 oxcarbazepine 300 mg tablet 300 mg PO BID 12/21/24 01/04/25 clobetasol 0.05 % topical cream 1 appl topical BID 01/04/25 01/04/25 lidocaine 4 % topical gel 1 appl topical TID PRN Pain 01/04/25 01/04/25 lorazepam 0.5 mg tablet 0.5 mg PO BID PRN MODERATE Anxiety 01/04/25 01/04/25 polyethylene glycol 3350 17 17 g PO DAILY PRN Constipation 01/04/25 01/04/25 gram/dose oral powder (Miralax) Previous Rx's ?Medication ?Instructions ?Recorded nebulizer and compressor #1 ea 12/16/23 ipratropium 0.5 mg-albuterol 3 mg 3 ml inhalation Q4H PRN for 03/02/24 (2.5 mg base)/3 mL nebulization dyspnea #180 mL soln roflumilast 500 mcg tablet 500 mcg PO DAILY 30 days #30 tabs 10/06/24 (Daliresp) benzonatate 100 mg capsule 100 mg PO TID PRN Cough #30 caps 10/31/24 dextromethorphan-guaifenesin 30 1 tab PO BID #20 tabs 10/31/24 mg-600 mg tablet extended [id number] hr (Mucus DM) omeprazole 20 mg capsule,delayed 20 mg PO DAILY@06 #0 caps 12/13/24 release oxycodone 5 mg tablet 5 mg PO BID PRN Severe Pain (Scale 12/13/24 Score 7-10) #10 tabs valsartan 40 mg tablet 40 mg PO DAILY #90 tabs 12/26/24 doxycycline monohydrate 100 mg 100 mg PO BID #4 tabs 01/08/25 tablet prednisone 10 mg tablet 10 mg PO DIRECTED #20 tabs 01/08/25 prednisone 50 mg tablet 50 mg PO DAILY 5 days #5 tabs 01/22/25 Allergies Allergy/AdvReac Type Severity Reaction Status Date / Time Iodinated Contrast Media (IV Allergy Intermediate HIVES Verified 01/21/25 22:41 CONTRAST) latex (LATEX) Allergy Unknown RASH Verified 01/21/25 22:41 adhesive tape Allergy Rash Verified 01/21/25 22:41 morphine (MORPHINE) AdvReac Unknown VOMITING Verified 01/20/25 05:49 Review of Systems Review of Systems: As per HPI, full review of systems performed and negative but for the above mentioned pertinent positives and negatives. [facility] Past Medical History Attestation statement: The following information was validated with the patient. [facility] Narrative: COPD, trigeminal neuralgia, hypertension, aortic stenosis Source: old records reviewed and nursing notes reviewed Medical History Leukocytosis Chronic lung disease Chronic lung disease Hypoxia Panic disorder Hypertension Chronic hypercapnic respiratory failure Aortic stenosis Obesity (BMI 30-39.9) Asthma Acute exacerbation of chronic obstructive pulmonary disease Chronic lung disease Hypogammaglobulinemia Smoker JUANITO (obstructive sleep apnea) Allergies Elevated troponin COPD (chronic obstructive pulmonary disease) Trigeminal neuralgia Pulmonary nodules Mixed hyperlipidemia Peripheral neuropathy Tobacco use disorder Mood disorder Surgical History History of esophagogastroduodenoscopy (EGD) History of colonoscopy History of lumbar discectomy History of tubal ligation History of excision of mass History of shoulder surgery Social History Social History Household Members: Family Household Members Other:: dog Housing: House Do you presently have visiting nurse or other home services: Yes Alcohol intake: never Comment: rings appropriately Patient Tobacco Use Status: Former Tobacco user Tobacco use type: Cigarette Cigarette Packs Per Day: 4 Cigarettes Per Day: 80.0 Years Smoked: 40 e-Cigarette/Vaping Use: Never Used Second Hand Smoke Exposure: No Substance Use Type: Marijuana Advance Directives: Yes Advance Directives on File: Yes Advance Directives Date on File: 03/09/23 service: No Physical Exam Exam: Exam: GENERAL: Ill-appearing, moderate respiratory distress. SKIN: Normal skin color for ethnicity, warm, dry, no rashes noted. HEENT: Normocephalic, atraumatic, no stridor, EOMI. NECK: Soft, supple, full ROM, midline structures nontender, no step-offs, no deformities, no lymphadenopathy. CHEST: Heart regular tachycardia, symmetric chest rise and fall. PULMONARY: Diffuse wheezes throughout, tachypnea, poor air movement bilaterally, moderate respiratory distress. ABDOMINAL: Soft, nontender, quiet bowel sounds in all quadrants. : Deferred. MUSCULOSKELETAL: Normal tone, full range of motion, no deformities, no peripheral edema. NEURO: Alert and oriented to person, CN II through XII intact, no focal neurologic deficits. PSYCHIATRIC: Anxious affect, appropriate demeanor. Vital Signs: Vital Signs: Last Vital Signs Temp 97.5 F 01/22/25 04:14 Pulse 81 01/22/25 04:14 Resp 17 01/22/25 04:14 BP 105/54 L 01/22/25 04:14 Pulse Ox 94 01/22/25 04:14 O2 Del Method Nasal Cannula 01/22/25 04:14 O2 Flow Rate 2 01/22/25 04:14 BMI result Body Mass Index 42.0 Medications Administered Discontinued Medications Generic Name Dose Route Start Last Admin Trade Name Freq PRN Reason Stop Dose Admin Albuterol Sulfate 7.5 mg/ 0 mg 01/21/25 22:49 01/21/25 22:56 Albuterol/Ipratropium 3 ml INHALE 01/21/25 22:50 10 each ONCE ONE Administration Ketorolac Tromethamine 15 mg 01/22/25 00:46 01/22/25 00:51 Ketorolac Tromethamine 15 Mg/Ml Vial IVPUSH 01/22/25 00:47 15 mg ONCE ONE Administration Medical Decision Making Medical Decision Making MDM Narrative: Patient presents in respiratory distress. Differential diagnosis includes flash pulmonary edema, COPD exacerbation, pneumothorax, pneumonia, ACS, pulmonary embolism, metabolic acidosis, among many others. The serious nature of the patient's symptoms makes this presentation complex, with potential for significant, worsening morbidity and mortality without immediate treatment/intervention. 10:47 PM 01/21/2025 (Dr. Natasha Giordano, D.O.) patient arrives in the emergency department, initiated on BiPAP. She did receive IM epi, IV Solu-Medrol and magnesium prior to arrival with minimal improvement in her symptoms. She continues to have extensive wheezes, tachypnea, poor air movement. Respiratory therapist at bedside. 1:30 AM 01/22/2025 (Dr. Natasha Giordano, D.O.) patient reports that she does not want stay in the hospital tonight. Admits that she has an appointment at a motorboat mechanic helper's office in [place] regarding a procedure to help her COPD and she does not want to miss this appointment. She is very anxious about missing it. She does not report significant improvement in symptoms and is no longer wheezing. Resting comfortably, off supplemental oxygen. 4:31 AM 01/22/2025 (Dr. Natasha Giordano, D.O.) patient's is here to pick her up. Using shared decision making, plan for discharge home to follow-up with primary care and/or specialist. Patient understands and agrees with plan for discharge. Discharged home in stable condition with prescription for steroids. Return precautions discussed. Differential Diagnosis Differential Diagnoses: The differential diagnosis associated with the presentation includes (As above) Admission/Observation Consideration of admission/observation: Escalation of care including admission/observation considered Lab Data MDM Lab Attestation statement: I reviewed the patient's lab results. 01/21/25 22:47 01/21/25 22:47 Labs: Lab Results 01/21/25 01/21/25 Range/Units 22:47 22:53 WBC 10.1 (4.8-10.8) X10*3/uL RBC 3.71 L (4.20-5.50) X10*6/uL Hgb 11.8 L (12.0-16.0) g/dl Hct 36.5 L (37.0-47.0) % MCV 98.4 H (80.0-98.0) fL MCH 31.8 (27.0-33.0) pg MCHC 32.3 (31.0-35.0) g/dl RDW 13.8 (11.0-16.0) % Plt Count 287 (160-400) X10*3/uL MPV 8.9 L (9.4-12.3) fL Immature Gran % (Auto) 0.5 H (0.0-0.4) % Neut % (Auto) 58.4 (45-73) % Lymph % (Auto) 26.2 (20-40) % Sunflower % (Auto) 10.4 (2-11) % Eos % (Auto) 4.0 (0-4) % Baso % (Auto) 0.5 (0-2) % Lymph # (Auto) 2.7 (1.2-4.9) X10*3/uL Sunflower # (Auto) 1.1 (0.1-1.2) X10*3/uL Eos # (Auto) 0.4 (0.0-0.4) X10*3/uL Baso # (Auto) 0.1 (0.0-0.2) X10*3/uL Abs Immat Gran (auto) 0.05 H (0.00-0.03) X10*3/uL Absolute Neuts (auto) 5.9 (2.0-8.3) x10*3/uL Absolute Nucleated RBC 0.000 (0.0-0.012) X10*3/uL Nucleated RBC % (auto) 0.0 (0.0-0.2) /100WBC VBG pH 7.42 (7.32-7.43) VBG pCO2 55 mmHg VBG pO2 66 mmHg VBG HCO3 36 H (22-26) mmol/L VBG O2 Saturation 94.0 % VBG Base Excess 10.0 mmol/L Sodium 145 (135-145) mmol/L Potassium 3.8 (3.3-5.1) mmol/L Chloride 102 (96-108) mmol/L Carbon Dioxide 31 H (22-29) mmol/L Anion Gap 16 (12-20) BUN 8 L (9-16) mg/dL Creatinine 0.65 (0.5-1.4) mg/dL Estim Creat Clear Calc 93.9 Estimated GFR > 60 Random Glucose 200 H (60-115) mg/dL Calcium 9.7 (8.4-10.2) mg/dL Magnesium 3.7 H* (1.6-2.6) mg/dL Total Bilirubin 0.2 (0.0-1.0) mg/dL AST 22 (5-31) U/L ALT 15 (0-31) U/L Alkaline Phosphatase 63 (39-117) U/L Troponin I High Sens 12.6 (<3.5-17.0) ng/L B-Natriuretic Peptide 56 (<100) pg/mL Total Protein 6.9 (6.5-8.0) g/dL Albumin 4.0 (3.5-5.0) g/dL Influenza Type A (PCR) NEGATIVE (Negative) Influenza Type B (PCR) NEGATIVE (Negative) RSV RNA Qual (PCR) NEGATIVE (Negative) SARS-CoV-2 RNA (RT-PCR) NEGATIVE (Negative) Independent Interpretation I performed an independent interpretation of an: EKG and Plain X-Ray Independent Historian Clinical information obtained from an independent historian. History obtained from or confirmed by: EMS External Record Review External record reviewed: Inpatient record and Outpatient record Prescription Management I considered prescription management with: Other (Steroids) Chronic Conditions Patient?s care impacted by: Hypertension and Other (COPD) Critical Care Time Critical Care Time Critical Care Time: Yes Total Critical Care Time: 40 Attestation: CRITICAL CARE TIME: 40 minutes of critical care time was spent in direct patient care at the bedside or in the immediate area with this patient. Critical care was necessary to treat or prevent imminent or life-threatening deterioration of the following conditions acute hypoxic respiratory failure due to asthma exacerbation. This patient is high risk for decompensation and/or . This time was spent assessing and managing the patient, interpreting labs and imaging, coordinating care with other medical providers, gathering history from either the patient, their representatives, EMS or chart review, and discussing management with respiratory therapy. Discharge Plan Discharge Clinical Impression: Acute exacerbation of COPD with asthma Patient Disposition: Home, Self-Care Prescriptions: New prednisone 50 mg tablet 50 mg PO DAILY 5 Days Qty: 5 0RF No Action ipratropium-albuterol 0.5 mg-3 mg(2.5 mg base)/3 mL solution for nebulization 3 ml inhalation Q4H PRN (Reason: for dyspnea) Qty: 180 11RF valsartan 40 mg tablet 40 mg PO DAILY Qty: 90 2RF Protocol: Hold for SBP< HOLD for SBP < : 90 verapamil 120 mg tablet 120 mg PO BID@0500,2000 baclofen 20 mg tablet 20 mg PO TID@0500,1200,2000 benzonatate 100 mg Capsule 100 mg PO TID PRN (Reason: Cough) Qty: 30 0RF Mucus DM 30-600 mg Tablet Extended Release 12 Hr 1 tab PO BID Qty: 20 0RF aripiprazole [Abilify] 5 mg tablet 5 mg PO DAILY oxcarbazepine 300 mg tablet 300 mg PO BID atorvastatin 80 mg tablet 80 mg PO DAILY@1999 hhcdeoqrrm-lpeslabdjztfp-pjxw 50-325-40 mg tablet 1 tab PO DAILY MRX1 PRN (Reason: Migraine Headache) hyoscyamine sulfate 0.125 mg tablet 0.25 mg PO Q6H PRN (Reason: Abdominal Discomfort) gabapentin 300 mg capsule 1,200 mg PO TID@0500,1200,1999 duloxetine 60 mg capsule,delayed release(DR/EC) 60 mg PO BID@0500,1999 (DME) nebulizer and compressor Device See Rx Instructions .Route Qty: 1 0RF Rx Instructions: As directed albuterol sulfate 90 mcg/actuation HFA aerosol inhaler 2 puff inhalation Q4H PRN (Reason: Shortness Of Breath Or Wheezing) aspirin 81 mg tablet,delayed release (DR/EC) 81 mg PO DAILY@1999 omeprazole 20 mg Capsule,Delayed Release(Dr/Ec) 20 mg PO DAILY@0630 Qty: 0 0RF oxycodone 5 mg tablet 5 mg PO BID PRN (Reason: Severe Pain (Scale Score 7-10)) Qty: 10 0RF clobetasol 0.05 % cream 1 appl topical BID polyethylene glycol 3350 [Miralax] 17 gram/dose Powder 17 g PO DAILY PRN (Reason: Constipation) lidocaine 4 % Gel 1 appl TOPICAL TID PRN (Reason: Pain) lorazepam 0.5 mg tablet 0.5 mg PO BID PRN (Reason: MODERATE Anxiety) doxycycline monohydrate 100 mg tablet 100 mg PO BID Qty: 4 0RF prednisone 10 mg tablet 10 mg PO DIRECTED Qty: 20 0RF Rx Instructions: 40 mg daily x 2 days then 30 mg daily x 2 days, then 20 mg daily x 2 days, then 10 mg daily x 2 days calcium carbonate-vitamin D3 600 mg-5 mcg (200 unit) tablet 1 tab PO DAILY@1999 roflumilast [Daliresp] 500 mcg tablet 500 mcg PO DAILY 30 Days Qty: 30 11RF prazosin 2 mg capsule 2 mg PO DAILY@1999 (DME) Oxygen Home Use Kit See Rx Instructions .Route Rx Instructions: As directed Print Language: Kazakh
[2025-01-21 22:49] VITALS: PULSE 87; RESP 22; O2SAT 94
--- NOTE | 2025-01-21 22:52 | PC.NURSE ---
RT Aston at bedside. BiPAP / 24% RR12. 94% SpO2
[2025-01-21 22:53] LABS: Hematocrit 36.5 % (37.0-47.0); Hemoglobin 11.8 g/dl (12.0-16.0); Imm Gran Abs Auto 0.05 X10*3/uL (0.00-0.03); Imm Gran Pct Auto 0.5 % (0.0-0.4); Lymphocytes Absolute Auto 2.7 X10*3/uL (1.2-4.9); MANUAL DIFF FLAG NO; Mean Corpuscular HGB Conc 32.3 g/dl (31.0-35.0); Mean Corpuscular Hemoglobin 31.8 pg (27.0-33.0); Mean Corpuscular Volume 98.4 fL (80.0-98.0); NRBC Abs Auto 0.000 X10*3/uL (0.0-0.012); NRBC Pct Auto 0.0 /100WBC (0.0-0.2); Platelet Count 287 X10*3/uL (160-400); Red Blood Count 3.71 X10*6/uL (4.20-5.50); White Blood Count 10.1 X10*3/uL (4.8-10.8)
[2025-01-21] MEDS: Albuterol Sulfate 7.5 MG, Albuterol/Iprat 2.5/0.5MG 3 ML 3 ML INHALE (22:56)
[2025-01-21 22:57] LABS: Venous Blood Gas Refer to POC result
[2025-01-21 22:59] VITALS: PULSE 89; RESP 22; O2SAT 93
[2025-01-21 22:59] LABS: VBG HCO3 36 mmol/L (22-26); VBG O2 % Saturation 94.0 %
[2025-01-21 23:12] LABS: B Type Natriuretic Peptide 56 pg/mL (<100)
[2025-01-21 23:13] LABS: Troponin-I High Sensitivity 12.6 ng/L (<3.5-17.0)
[2025-01-21 23:15] LABS: Alanine Aminotransferase 15 U/L (0-31); Albumin Level 4.0 g/dL (3.5-5.0); Alkaline Phosphatase 63 U/L (39-117); Anion Gap 16 (12-20); Aspartate Amino Transferase 22 U/L (5-31); Blood Urea Nitrogen 8 mg/dL (9-16); Calcium 9.7 mg/dL (8.4-10.2); Carbon Dioxide 31 mmol/L (22-29); Chloride 102 mmol/L (96-108); Creatinine Clr Calc Pharmacy 93.9; Estimated Glomerular Filt Rate > 60; Magnesium 3.7 mg/dL (1.6-2.6); Potassium 3.8 mmol/L (3.3-5.1); Sodium 145 mmol/L (135-145); Total Protein 6.9 g/dL (6.5-8.0)
[2025-01-21 23:33] LABS: Resp Syncy Virus RNA Qual PCR NEGATIVE (Negative); SARS COV2 PCR INHOUSE NEGATIVE (Negative)
[2025-01-22 03:53] VITALS: BP 107/51; PULSE 68
[2025-01-22 04:14] VITALS: BP 105/54; PULSE 81; RESP 17; TEMP 36.4; O2SAT 94
[2025-01-22 04:45] VITALS: BP 105/54; PULSE 81; RESP 17; TEMP 36.4; O2SAT 94
--- NOTE | 2025-01-22 04:55 | PC.NURSE ---
pt states she feels ready to go home. 95% SpO2 on baseline 2L NC. arrived with home oxygen machine, applied, and this nurse wheeled to exit and assisted pt to vehicle.
== END 2025-01-22 04:45 | disposition home or self-care (01) ==
PROVIDERS: Emergency Provider Emergency Medicine; PCP Internal Medicine
DX: J44.1 Chronic obstructive pulmonary disease with (acute) exacerbation (principal); I10 Essential (primary) hypertension; Z87.891 Personal history of nicotine dependence; Z79.899 Other long term (current) drug therapy
CPT/HCPCS: 36415; 71045; 80053; 82803; 83735; 83880; 84484; 85025; 87637; 93005; 94640; 96374; 99284; J1885

== ENCOUNTER → 2025-01-21 22:39 | Outpatient (BNV) | payer BC, SELFPAY | PROVIDERS: Emergency Provider Emergency Medicine; PCP Internal Medicine; Visit Provider Internal Medicine Cardiovascular Disease | DX: R06.02 Shortness of breath (principal) | CPT/HCPCS: 93010 ==

== ENCOUNTER → 2025-01-21 22:39 | Outpatient (BNV) | payer BC, SELFPAY | PROVIDERS: Emergency Provider Emergency Medicine; PCP Internal Medicine; Visit Provider Radiology Neuroradiology | DX: R05.9 Cough, unspecified (principal); R06.00 Dyspnea, unspecified | CPT/HCPCS: 71045 ==

== ENCOUNTER 2025-01-23 10:30 | Outpatient (AMB) | payer BC, SELFPAY ==
[2025-01-23 10:31] VITALS: BP 150/62; PULSE 94; O2SAT 94
--- NOTE | 2025-01-23 10:31 | A.OFFVIS_ITS ---
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 Apparently back in February she developed worsening respiratory symptoms and was admitted to the hospital with COPD exacerbation. While she was there the patient did have a CT scan of the chest which was personally reviewed by me. It appears patient does have underlying pulmonary nodules subcentimeter in size, as well as, emphysema evidence of bronchitis. The patient does use oxygen activity. She also benefits from using oxygen while sleeping. The patient also needs to quit smoking. She understands the has is having oxygen and smoking. 07/19/2023 the patient is here for a pulmonary follow-up visit. Overall she is doing about the same. She has not using the oxygen regularly. She did have an overnight oximetry done several months ago on 2 L nasal cannula demonstrating that she actually does require the 2 L and actually would benefit from a little more oxygen. However, she has not using it at also I did advise her just to go back on using the oxygen. She has significant trigeminal neuralgia and neuropathy in general making it difficult for her to have anything over head and ear area. Therefore, she is going to have to figure out a way that would work for her. She does not tolerate a oxygen mask either because of the same problem. She is going to look to see if she can find a solution otherwise will can call [facility] to see if they can help her. The patient unfortunately she continues to smoke cigarettes. She does want to quit she wants to try the Nicotrol nasal spray. Will send to the pharmacy for her to try. The patient a lso did have pulmonary function studies that [facility] last year. She does have significant COPD. We do not have those PFTs available at this time but we will request them. She will be a great candidate for pulmonary rehabilitation at this time. The patient also had a CT scan of the chest back in February 2023 demonstrating multiple nodules largest 1 measuring 5 mm in size. She is high risk for malignancy due to her smoking history therefore she will have a repeat CT scan the fall 2023. 01/20/2024 the patient is here for a pulmonary follow-up visit. The patient has been hospitalized now about 3 times since we last spoke. I did evaluate her in the hospital as well. Has had significant wheezing. Has been requiring prednisone. Indeed she may have an allergic component to her bronchospasms. She does have significant eosinophilia. therefore, will go ahead and request additional testing including allergy testing so we can address her persistent bronchospasms. Currently she is on 40 mg of prednisone. She only taper. We did go over her inhalers. She needs to also continue to use her nebulizer therapy 2 to 4 times a day. Trelegy inhaler will be effective for her. She will go ahead and start that inhaler and we did instruct her how to use it. The patient is also using her oxygen. We did do a brief walking oximetry to make sure that she was getting adequate oxygenation. She need to continue using 2 L with activity. She does not using her nose because it does aggravate her nose so therefore she does only get some administration. The patient also has under lying daytime drowsiness. It was documented the patient is snoring. She also has headaches in the morning. The patient does have an elevated Winston score of 10/24. He is using oxygen with sleep. Will go ahead and request an in-lab sleep study at this time. 03/15/2024 the patient is here for a pulmonary follow-up visit. The patient is here for hospital follow-up visit. She has had multiple hospitalizations since the last visit. She has been having worsening respiratory symptoms. She is on currently on prednisone. She is tapering down. We did talk about her blood work demonstrating a low IgG level. I explained to her hypogammaglobulinemia can result in smoldering infections and could potentially worsen her respiratory issues and it could be driving her exacerbations. We talked about augmentation therapy. Will go ahead and repeat her levels once she is off the prednisone to see if she still low. If she is still low will talk about augmentation therapy further. In addition to that she did have a sleep study. It was an in-lab study. She did not have any evidence of sleep apnea. The patient actually just needs to be on oxygen. She can use 1 L at nighttime. We can always check an overnight oximetry on 1 L to make sure sufficient. In addition to that she is using the portable oxygen concentrator with did ask conserving device tank. The patient was walk today she needs 2 L pulse at rest and 3 L pulse with activity. When she is at home with the continue his oxygen she can stay on 2 liters/minute. Although when she is doing any kind strained his activity such as going up a flight of stairs or going showering she should be on 3 liters/minute. The patient feels comfortable with that. She continues use her respiratory therapy as prescribed. The patient did have a CT scan of the chest back in 03/03/2023 demonstrating multiple pulmonary nodules and chronic bronchitis. Largest nodule measuring 5 mm in size. She will need another CT scan now. The patient follow-up in 3-4 weeks and will review the CT scan at that time. 04/06/2024 the patient is here for a hospital follow-up visit. She was on hospital again. The patient required another course of steroids. She then subsequently to rehabilitation. She has been using her oxygen. We again reviewed her blood work demonstrating the significant immunodeficiency. Indeed her recurrent infections may be related to immunocompromised state in the treatment of augmentation therapy may be very reasonable for her to improve her quality of life decrease hospitalizations and improve her respiratory status. But for now she is on prednisone. Therefore will wait for to finish a prednisone recheck her levels to see if the levels continued to be low. If they are low then will go ahead and start her on IVIG therapy. If the levels are coming up then which is hold steady and see if they continue to rise when she is off the prednisone. She continues with respiratory therapy good effect. We did review her chest x-ray demonstrating no acute disease. We did review her allergy levels. There indeed elevated with an elevated IgE although her eosinophils are stable therefore not a candidate for Dupixent. However, will recheck her levels when she is off the prednisone to see if her eosinophils go about 300. 05/25/2024 the patient has a telehealth visit today. She was again in the hospital with nausea vomiting and she had dehydration. She is now better. She did require additional prednisone. Prior to the prednisone she did get the blood work demonstrating again on low IgG level. She is keeps getting admissions to the hospital because of bronchitis COPD exacerbations likely from ongoing infections. Therefore starting her on IVIG will be important. Her levels continue to be significantly low even off the prednisone. Her eosinophil levels are okay so therefore she is not a candidate for Dupixent. She continues use her oxygen good effect. She also continues with her respiratory therapy. 07/24/2024 the patient is here for a pulmonary follow-up visit. Overall the patient has been doing better. She was hospitalized briefly with another COPD exacerbation. Her chest x-ray was personally by me just demonstrating some evidence of bronchitis. No airspace disease noted. She was discharged and she has continued to use the oxygen. She is able to get a POC now and she is using at 2 L pulse. We did titrate her oxygen and she actually can just be on 2 L pulse with activity and if she is sitting down she can be on room air. Will go ahead request a repeat overnight oximetry on room air to see if she needs oxygen at nighttime. In the meantime she is going to continue with respiratory therapy. She also has been doing the IVIG which she will do every month. Does before the 4th dose she will get blood work done to check her IgG throw it make sure that her levels are reasonable. If not we can adjust them at that point. The patient also follow-up after that. We did talk about pulmonary rehabilitation. She had done it before. She will maybe benefit from it again specially as her respiratory condition seems to be getting better. She quit smoking back in April and this is a great accomplishment. I do believe that this will also help her recovery. 10/06/2024 the patient is here for a pulmonary follow-up visit. Overall she is doing okay. Beginning of the month she did have an exacerbation and went to the ER. She was given Solu-Medrol and sent home to use her noninvasive ventilator. Unfortunately she can not use a noninvasive ventilator regularly because she has trigeminal neuralgia and causes significant pain to wear the head gear. Therefore she is going to try some Lidoderm cream to the area. I do not want him to pre treat with lorazepam as she has in the past because is going to only suppress her respiratory drive. The patient has been using the oxygen with good effect. She has been having little bit more wheezy lately. I do believe that is likely to to allergies as her eosinophils are significantly elevated. Patient does have episodes of COPD with frequent exacerbations which will be a great candidate for Daliresp. Will go ahead and send Daliresp 500 mcg to the pharmacy. She is going to start taking slowly to both tolerance and then take it regularly. If she can not tolerate the Daliresp then she can always call and we can prescribe Ohtuvayre. She continues to get the IVIG every 4 weeks. We did check a trough recently and her IgG levels are better, but, she needs to continue with the every 4 week infusions since her trough is still low normal. She is wondering how long she is going to have to be on the IVIG therapy. I did tell her based on the fact that she her trough is still low she probably have to be on it for more than a year. Will reassess NSR levels continue to increase hopefully they do we can start extending it. 01/23/2025 the patient is here for hospital follow-up visit. She has been in the hospital frequently with worsening respiratory symptoms. Has had worsening shortness of breath. Had a an echocardiogram demonstrating moderate degree of diastolic dysfunction with a hyperdynamic EF. She also has moderate degree of aortic stenosis. This is not helping in view of her underlying advanced chronic respiratory failure and COPD. She had been in the hospital in her diuretics unfortunately that for her to be hypovolemic intravascularly depleted and therefore she was having issues with low blood pressures and sometimes she has fluctuations in her blood pressure. We did talk about the importance of being on some degree of diuretic in view of her cardiovascular disease. The patient needs to monitor closely her weight. We did come up with a protocol until she sees Cardiology. In the meantime she also has a noninvasive ventilator. She has a hard time tolerating it before because of her significant trigeminal neuralgia. We did come up with some advice how she can tackle those obstacles to try to tolerate the PAP therapy. She understands that the noninvasive ventilator will help her with her respiratory failure and will also help her with the decrease the work of the heart. She continues use her respiratory therapy and currently on prednisone as she recently went to the hospital was placed on a prednisone without a taper. Send her a taper at this time in order for her to slowly decrease the prednisone in view of her advanced disease. We also did look at her last CT scan of the chest that she had back in December 2024 demonstrating what appears to be a right middle lobe consolidation. We also looked at the CAT scan she had prior to that in 2023 and she had nothing there to suggest a progression. Therefore is only transient infection. She will need a repeat CAT scan in order to make sure that that areas subsides. She is on the IgG infusions. And she does have improvement in overall levels. She will be following up with a 2nd opinion I believe coming up soon. She is wondering about lung volume reduction interventions. View of her comorbidities I do not believe is a good idea for her to consider lung volume reduction interventions at this time specially she is a high risk for lower respiratory infections and she is also at high risk for pneumothoraces. [facility] Medical History (Updated 01/23/25 @ 22:26 by Denys Henriquez MD) Pulmonary nodules Diastolic heart failure Leukocytosis Chronic lung disease Chronic lung disease Hypoxia Panic disorder Hypertension Chronic hypercapnic respiratory failure Aortic stenosis Obesity (BMI 30-39.9) Asthma Acute exacerbation of chronic obstructive pulmonary disease Chronic lung disease Hypogammaglobulinemia Smoker JUANITO (obstructive sleep apnea) Allergies Elevated troponin COPD (chronic obstructive pulmonary disease) Trigeminal neuralgia Mixed hyperlipidemia Peripheral neuropathy Tobacco use disorder Mood disorder Surgical History History of esophagogastroduodenoscopy (EGD) History of colonoscopy History of lumbar discectomy History of tubal ligation History of excision of mass History of shoulder surgery Social History Household Members: Family Household Members Other:: dog Housing: House Do you presently have visiting nurse or other home services: Yes Alcohol intake: never Comment: rings appropriately Patient Tobacco Use Status: Former Tobacco user Tobacco use type: Cigarette Cigarette Packs Per Day: 4 Cigarettes Per Day: 80.0 Years Smoked: 40 e-Cigarette/Vaping Use: Never Used Second Hand Smoke Exposure: No Substance Use Type: Marijuana Advance Directives Date on File: 03/09/23 service: No Review of Systems Const Denies chills, Denies fatigue, Denies fever(s), Denies weight gain and Denies weight loss Eyes Denies change in vision ENT Denies dizziness Card Denies chest pain, Reports leg edema, Denies lightheadedness, Reports palpitations, Reports dyspnea on exertion, Reports orthopnea and Denies other Resp Reports cough, Reports dyspnea on exertion and Reports wheezing GI Denies hematochezia and Denies change in stool character Musc Reports abnormal gait, Reports muscle weakness, Denies numbness, Denies radiating pain into limb and Denies tingling Skin/Breast Denies rash Neuro Reports abnormal gait, Denies dizziness, Denies numbness and Denies tingling Endo Denies fatigue and Reports palpitations Luis/Lymph Denies lymphadenopathy Aller/Immun Reports no additional complaints and Reports wheezing Physical Exam Vital Signs: Last Vital Signs Pulse 94 01/23/25 10:31 BP 150/62 H 01/23/25 10:31 Pulse Ox 94 01/23/25 10:31 Oxygen Delivery Method Room Air 01/23/25 10:31 Last Vital Signs Temp 97.6 F 12/11/24 12:54 Pulse 85 12/11/24 12:54 Resp 20 12/11/24 12:54 BP 158/75 H 12/11/24 12:54 Pulse Ox 95 12/11/24 12:54 O2 Del Method Nasal Cannula 12/11/24 12:54 O2 Flow Rate 2 12/11/24 12:54 Oxygen Flow Rate 2 12/07/24 21:04 BMI result Body Mass Index 36.5 Const General: cooperative and alert Orientation/consciousness: patient oriented x3 HEENT Head: Yes normocephalic Chest Chest palpation & inspection: normal inspection of the chest Resp Effort & Inspection: normal respiratory effort and able to speak in complete sentences Auscultation: no wheezes and diminished lung sounds Cardio Heart sounds: S1 normal heart sound present, S2 normal heart sound present and Murmur heart sound present GI Palpation (GI): Soft to palpation Skin General skin exam: no rashes or lesions noted Neuro General: patient oriented x3 Extrem General: No clubbing, No cyanosis and Yes edema Results Reviewed Results Reviewed: personally reviewed CTA from 12/2024 no PE, +emhysema, mosaic pattern, RML consol idation Assessment & Plan Assessment & Plan (1) JUANITO (obstructive sleep apnea): Code(s): G47.33 - Obstructive sleep apnea (adult) (pediatric) Category: Medical (2) COPD (chronic obstructive pulmonary disease): Code(s): J44.9 - Chronic obstructive pulmonary disease, unspecified Category: Medical Qualifiers: COPD type: chronic bronchitis Chronic bronchitis type: simple Qualified Code(s): J41.0 - Simple chronic bronchitis (3) Pulmonary nodules: Code(s): R91.8 - Other nonspecific abnormal finding of lung field Category: Medical (4) Allergies: Code(s): T78.40XA - Allergy, unspecified, initial encounter Category: Medical Qualifiers: Encounter type: initial encounter Qualified Code(s): T78.40XA - Allergy, unspecified, initial encounter (5) Hypogammaglobulinemia: Code(s): D80.1 - Nonfamilial hypogammaglobulinemia Category: Medical (6) Chronic lung disease: Code(s): J98.4 - Other disorders of lung Category: Medical (7) Aortic stenosis: Code(s): I35.0 - Nonrheumatic aortic (valve) stenosis Category: Medical Qualifiers: Cardiac valve disease etiology: etiology unspecified Qualified Code(s): I35.0 - Nonrheumatic aortic (valve) stenosis (8) Diastolic heart failure: Code(s): I50.30 - Unspecified diastolic (congestive) heart failure Category: Medical Qualifiers: Heart failure chronicity: chronic Qualified Code(s): I50.32 - Chronic diastolic (congestive) heart failure (9) Pneumonia: Code(s): J18.9 - Pneumonia, unspecified organism Category: Medical Qualifiers: Laterality: bilateral Lung location: lower lobe of lung Pneumonia type: due to unspecified organism Qualified Code(s): J18.9 - Pneumonia, unspecified organism Plan Trelegy PAMELA as needed Prednisone taper continue IVIG augmentation therapy continue oxygen supplementation with activity start Lasix 10mg x days, then PRN wt gain LDCT program continue oxygen 1L/min while sleeping, 2l/pulse with activity (Has POC) F/U 2-3 months Orders: Orders CT chest wo IV con 4 Weeks J18.9 - Pneumonia, unspecified organism, R91.8 - Other nonspecific abnormal finding of lung field Medications: New prednisone PO daily; Take 5 tabs x 3 days, then 4 tabs x 3 days, then 3 tabs x 3 days, then 2 tabs daily x 3 days, then 1 tab x 3 days to complete. 45 tabs 0RF 15 days furosemide (Lasix) 10 mg (1/2 x 20 mg) PO DAILY PRN 30 tabs 1RF weight gain 30 days Coding Level of Care Code Est Pt Level 5 (79864) Complex EM visit Add On G2211 Diagnoses JUANITO (obstructive sleep apnea) G47.33 Simple chronic bronchitis J41.0 COPD type: chronic bronchitis Chronic bronchitis type: simple Pulmonary nodules R91.8 Allergy, initial encounter T78.40XA Encounter type: initial encounter Hypogammaglobulinemia D80.1 Chronic lung disease J98.4 Aortic valve stenosis, etiology of cardiac valve disease unspecified I35.0 Cardiac valve disease etiology: etiology unspecified Chronic diastolic heart failure I50.32 Heart failure chronicity: chronic Pneumonia J18.9 Laterality: bilateral Lung location: lower lobe of lung Pneumonia type: due to unspecified organism Time Spent (min) 60
--- OUTSIDE RECORDS SUMMARY | 2025-01-23 11:33 | XMS_ITS | Encounter Summary ---
Author Organization [facility] Address [address] [place] [phone] Phone Care Team Providers Care Meat Washer Name Role Phone Lang Germain MD Unavailable [phone] Jennifer Duke BUNDLES HANGER Primary Care Provider Sirisha Huertas FILTER SCREEN CLEANER Primary Care Provider Jn Cardoza MD Unavailable Denys Henriquez MD Unavailable Liyah Patterson MD Unavailable Liyah Patterson MD Primary Care Provider [phone] Antione Segura PA-C Primary Care Provider Rhett Cortez MD Unavailable Encounter Details Date Type Department Care Team (Late st Contact Info) Description 11/27/2021 Procedure [facility], [address] [place] [address] Social History Tobacco Use Types Packs/Day Years Used Date Smoking Tobacco: Every Day Cigarettes 1 43.2 Started: 11/25/1981 Smokeless Tobacco: Never Alcohol Use Standard Drinks/Week Comments Yes 0 (1 standard drink = 0.6 oz pur e alcohol) 1-2 drinks few times per year Comments No Sex and Gender Information Value Date Recorded Sex Assigned at Female 11/13/2019 12:26 PM EDT Legal Sex Female 5:13 PM EST Gender Identity Female 11/13/2019 12:26 PM EDT Sexual Orientation Straight 11/13/2019 12 :26 PM EDT documented as of this encounter Last Filed Vital Signs Vital Sign Reading Time Taken Comments Blood Pressure - - Pulse - - Temperature - - Respiratory Rate - - Oxygen Saturation - - Inhaled Oxygen Concentration - - Weight 80.3 kg (177 lb) 11/27/2021 4:15 PM EDT Height 154.9 cm (5' 1 ) 11/27/2021 4:15 PM EDT Body Mass Index 33.44 11/27/2021 4:15 PM EDT documented in this encounter Plan of Treatment Upcoming Encounters Date Type Department Care Team (Late st Contact Info) Description 01/25/2025 1:00 AM EDT Home Care Visit [facility] [address] [place] [phone] Shakira Hand, RN [address] [place] [address] 01/25/2025 1:45 AM EDT Home Care Visit [facility] [address] [place] [phone] Yane Lanza, PT [address] [place] [address] 01/25/2025 4:00 AM EDT Home Care Visit [facility] [address] [place] [phone] Rosaline Han [address] [place] [address] 01/30/2025 4:00 AM EDT Home Care Visit [facility] [address] [place] [phone] Rosaline Han [address] [place] [address] 02/01/2025 1:30 AM EDT Home Care Visit [facility] [address] [place] [address] Shakira Hand, HUA [address] [place] [address] 02/01/2025 4:00 AM EDT Home Care Visit [facility] [address] [place] [address] [address] 02/06/2025 4:00 AM EDT Home Care Visit [facility] [address] [place] [address] [address] 02/07/2025 3:20 PM EDT Office Visit [facility] [address] [place] [address] Antione Segura PA-C [address] [place] [address] 02/08/2025 1:00 AM EDT Home Care Visit [facility] [address] [place] [address] Shakira Hand RN [address] [place] [address] 02/08/2025 4:00 AM EDT Home Care Visit [facility] [address] [place] [address] Guille Rosaline [address] [place] [address] 02/13/2025 4:00 AM EDT Home Care Visit [facility] [address] [place] [phone] Rosaline Han [address] [place] [address] 02/15/2025 1:00 AM EDT Home Care Visit [facility] [address] [place] [address] Shakira Hand RN [address] [place] [address] 02/15/2025 4:00 AM EDT Home Care Visit [facility] [address] [place] [address] Rosaline Han [address] [place] [address] 02/22/2025 12:30 AM EDT Appointment [facility] [address] [place] [phone] Shakira Hand RN [address] [place] [address] 04/17/2025 1:00 PM EST Office Visit [facility] [address] [place] [phone] Brittnee Vigil MD [address] [place] [address] 06/25/2025 9:30 AM EST Telemedicine [facility] Neurology [address] [place] [phone] Jn Cardoza MD [address] [place] [address], [address] [place] [address] documented as of this encounter Visit Diagnoses Not on filedocumented in this encounter Additional Health Concerns Assessment Noted Time PHQ-2 Depression Total Score: 0 05/25/20 19 9:02 AM EST documented as of this encounter Care Teams Meat Washer Relationship Specialty Start Date End Date Jennifer Duke, BUNDLES HANGER [address] [place] [phone] [email or web address] PCP - General Family Medicine 01/31/20 06/22/23 Sirisha Huertas FNP [address] [place] [phone] [email or web address] PCP - General Nurse Practitioner 06/23/23 08/03/24 Liyah Patterson MD [address] [place] [address] [email or web address] PCP - General Family Medicine 08/04/24 10/11/24 Antione Segura PA-C [address] [place] [address] [email or web address] PCP - General Physician Washcloth Folder 10/12/24 Lang Germain MD [address] [place] [address] [email or web address] Insurance Assigned Provider 09/18/23 02/19/24 Jn Cardoza MD [address] [facility], 2nd [place] [address] [email or web address] Neurology 02/03/24 Denys Henriquez MD [address] [place] [address] [place] [address] Pulmonary Disease 02/03/24 Liyah Patterson MD [address] [place] [phone] [email or web address] Insurance Assigned Provider 02/19/24 01/20/25 Rhett Cortez MD [address] [place] [address] [email or web address] Insurance Assigned Provider 01/20/25 documented as of this encounter Additional Source Comments The information contained in this document represents components of the legal health record. It is not the complete legal health record.[facility]
== END 2025-01-23 11:21 | disposition home or self-care (01) ==
PROVIDERS: PCP Physician Assistant Surgical; Visit Provider Hospitalist
DX: G47.33 Obstructive sleep apnea (adult) (pediatric) (principal); J41.0 Simple chronic bronchitis; R91.8 Other nonspecific abnormal finding of lung field; T78.40XA Allergy, unspecified, initial encounter; D80.1 Nonfamilial hypogammaglobulinemia; J98.4 Other disorders of lung; I35.0 Nonrheumatic aortic (valve) stenosis; I50.32 Chronic diastolic (congestive) heart failure; J18.9 Pneumonia, unspecified organism
CPT/HCPCS: 99215

== ENCOUNTER 2025-02-05 05:41 | Inpatient (IN) | payer BC, MEDICARE, SELFPAY ==
[2025-02-05] VITALS (11 sets, daily range): BP systolic 116–147; BP diastolic 58–79; PULSE 78–92; RESP 14–21; TEMP 36.1–37.9; O2SAT 90–98; BMI 41.2; BMI 40.0
--- NOTE | 2025-02-05 | ECG_ITS ---
Test Reason : SOB Blood Pressure : */* mmHG Vent. Rate : 94 BPM Atrial Rate : 94 BPM P-R Int : 124 ms QRS Dur : 82 ms QT Int : 342 ms P-R-T Axes : 67 71 49 degrees QTcB Int : 427 ms Normal sinus rhythm Normal ECG When compared with ECG of 21-Jan-2025 22:55, No significant change was found Referred By: Generic ED Physician Electronically Signed By: ANGEL HARRISON
--- NOTE | ~2025-02-05 | XR_ITS ---
CLINICAL HISTORY: dyspnea Exam: AP portable chest x-ray. Comparison: January 21, 2025. Findings: Lungs are well inflated. Mediastinal contours, cardiac silhouette, pulmonary vasculature are within normal limits. No focal areas of consolidation. Minor streaky perihilar density. No pleural effusion or pneumothorax. Impression: Minor streaky perihilar density. This can be seen with mild edema or bronchitis. Favor bronchitis. This document has been electronically signed by: Chris Scott MD on 02/05/2025 07:00:20
--- NOTE | 2025-02-05 05:56 | ED_ITS ---
HPI - SOB/Dyspnea General Chief Complaint: Dyspnea Stated Complaint: SOB Time Seen by Provider: 02/05/25 05:52 Source: patient, EMS and old records reviewed Mode of arrival: EMS Limitations: altered mental status History of Present Illness ED Provider: Dr. Natasha Giordano HPI Narrative: 60-year-old female with extensive past medical history including COPD, trigeminal neuralgia, hypertension, aortic stenosis presenting by EMS with severe dyspnea. EMS reports they are called out for an asthma exacerbation, found the patient to be in the low 90s on room air, tripoding, and not moving much air. She was started on a nebulizer treatment, given IV Solu-Medrol with moderate improvement in her symptoms. Patient reports symptoms ongoing since yesterday. Has been call 911 tonight. She was recently seen in this emergency department on 01/21 with similar symptoms. Ultimately discharged because she wanted to follow-up with her senior technical support engineer who had planned to evaluate her for the Harmony implant. Reports she did have the consultation but was told that she is not a candidate. Related Data Home Medications ?Medication ?Instructions ?Recorded ?Confirmed atorvastatin 80 mg tablet 80 mg PO DAILY@199903/04/23 01/04/25 osluyefdeg-dejulambbxxbt-wcspjknh 1 tab PO DAILY MRX1 PRN Migraine 03/04/23 01/04/25 50 mg-325 mg-40 mg tablet Headache duloxetine 60 mg capsule,delayed 60 mg PO BID@0500,200 0 03/04/23 01/04/25 release gabapentin 300 mg capsule 1,200 mg PO TID@0500,1200,20 00 03/04/23 01/04/25 hyoscyamine sulfate 0.125 mg tablet 0.25 mg PO Q6H PRN Abdominal 03/04/23 01/04/25 Discomfort Oxygen Home Use 04/16/23 10/29/24 prazosin 2 mg capsule 2 mg PO DAILY@199904/16/23 01/04/25 albuterol sulfate 90 mcg/actuation 2 puff inhalation Q 4H PRN 01/31/24 01/04/25 aerosol inhaler Shortness Of Breath Or Wheez ing aspirin 81 mg tablet,delayed 81 mg PO DAILY@05/2201/04/25 release calcium 600 mg (as 1 tab PO DAILY@199906/20/24 01/04/25 carbonate)-vitamin D3 5 mcg (200 unit) tablet baclofen 20 mg tablet 20 mg PO TID@0500,1200,2000 10/29/24 01/04/25 aripiprazole 5 mg tablet (Abilify) 5 mg PO DAILY 12/0101/04/25 oxcarbazepine 300 mg tablet 300 mg PO BID 12/21/24 clobetasol 0.05 % topical cream 1 appl topical BID 01/04/25 lidocaine 4 % topical gel 1 appl topical TID PRN Pain 01/04/25 01/04/25 lorazepam 0.5 mg tablet 0.5 mg PO BID PRN MODERATE A nxiety 01/04/25 01/04/25 polyethylene glycol 3350 17 17 g PO DAILY PRN Constipa tion 01/04/25 01/04/25 gram/dose oral powder (Miralax) Previous Rx's ?Medication ?Instructions ?Recorded nebulizer and compressor #1 ea 12/16/23 ipratropium 0.5 mg-albuterol 3 mg 3 ml inhalation Q4H PRN for 03/02/24 (2.5 mg base)/3 mL nebulization dyspnea #180 mL soln roflumilast 500 mcg tablet 500 mcg PO DAILY 30 days #3 0 tabs 10/06/24 (Daliresp) benzonatate 100 mg capsule 100 mg PO TID PRN Cough #30 caps 10/31/24 dextromethorphan-guaifenesin 30 1 tab PO BID #20 tabs 10/31/24 mg-600 mg tablet extended hr (Mucus DM) omeprazole 20 mg capsule,delayed 20 mg PO DAILY@0630 # 0 caps 12/13/24 release oxycodone 5 mg tablet 5 mg PO BID PRN Severe Pain (Scale 12/13/24 Score 7-10) #10 tabs valsartan 40 mg tablet 40 mg PO DAILY #90 tabs 12/12 11/05 doxycycline monohydrate 100 mg 100 mg PO BID #4 tabs 0 01/08/25 tablet prednisone 10 mg tablet 10 mg PO DIRECTED #20 tab s 01/08/25 prednisone 50 mg tablet 50 mg PO DAILY 5 days #5 tab s 01/22/25 furosemide 20 mg tablet (Lasix) 10 mg (1/2 x 20 mg) PO DAILY PRN 01/23/25 weight gain 30 days #30 tabs prednisone 10 mg tablet See Rx Instructions PO DAILY 15 01/23/25 days #45 tabs verapamil 120 mg tablet 120 mg PO BID 30 days #60 ta bs 01/29/25 Allergies Allergy/AdvReac Type Severity Reaction Status Date / Time Iodinated Contrast Media (IV Allergy Intermediate HIVES Verified 02/05/25 05:53 CONTRAST) latex (LATEX) Allergy Unknown RASH Verified 02/05/25 05:53 adhesive tape Allergy Rash Verified 02/05/25 05:53 morphine (MORPHINE) AdvReac Unknown VOMITING Verified 02/05/25 05:53 [facility] Past Medical History Medical History (Updated 02/05/25 @ 06:57 by Natasha Giordano DO) Pulmonary nodules Diastolic heart failure Leukocytosis Chronic lung disease Chronic lung disease Hypoxia Panic disorder Hypertension Chronic hypercapnic respiratory failure Aortic stenosis Obesity (BMI 30-39.9) Asthma Acute exacerbation of chronic obstructive pulmonary disease Chronic lung disease Hypogammaglobulinemia Smoker JUANITO (obstructive sleep apnea) Allergies Elevated troponin COPD (chronic obstructive pulmonary disease) Trigeminal neuralgia Mixed hyperlipidemia Peripheral neuropathy Tobacco use disorder Mood disorder Surgical History History of esophagogastroduodenoscopy (EGD) History of colonoscopy History of lumbar discectomy History of tubal ligation History of excision of mass History of shoulder surgery Social History Social History Household Members: Family Household Members Other:: dog Housing: House Do you presently have visiting nurse or other home services: Yes Alcohol intake: never Comment: rings appropriately Patient Tobacco Use Status: Former Tobacco user Tobacco use type: Cigarette Cigarette Packs Per Day: 4 Cigarettes Per Day: 80.0 Years Smoked: 40 e-Cigarette/Vaping Use: Never Used Second Hand Smoke Exposure: No Substance Use Type: Marijuana Advance Directives Date on File: 03/09/23 service: No Physical Exam 2 Exam: Exam: GENERAL: Ill-appearing, chronically ill-appearing, severe respiratory distress. SKIN: Normal skin color for ethnicity, warm, dry, no rashes noted. HEENT: Normocephalic, atraumatic, no stridor, EOMI. NECK: Soft, supple, full ROM, midline structures nontender, no step-offs, no deformities, no lymphadenopathy. CHEST: Heart regular tachycardia, barrel chest, symmetric chest rise and fall. PULMONARY: Diffuse, faint, wheezes throughout, tachypnea, diminished air movement bilaterally R>L, severe respiratory distress. ABDOMINAL: Soft,nontender, quiet bowel sounds in all quadrants. : Deferred. MUSCULOSKELETAL: Normal tone, full range of motion, no deformities, no peripheral edema. NEURO: Alert and oriented to person, CN II through XII intact, no focal neurologic deficits. PSYCHIATRIC: Anxious affect, appropriate demeanor. Vital Signs: Vital Signs: Last Vital Signs Temp 100.2 F 02/05/25 06:11 Pulse 91 02/05/25 06:11 Resp 21 H 02/05/25 06:11 BP 127/60 02/05/25 06:11 Pulse Ox 90 L 02/05/25 06:11 O2 Del Method Nasal Cannula 02/05/25 06:11 O2 Flow Rate 3 02/05/25 06:11 BMI result Body Mass Index 41.2 Medications Administered Generic Name Dose Route Start Last Admin Trade Name Freq PRN Reason Stop Dose Admin Doxycycline Hyclate 100 mg/ 250 mls @ 166.67 mls/hr 02/05/25 06:19 02/05/25 06:33 Sodium Chloride IV 02/05/25 07:48 166.67 mls/hr ONCE ONE Administration Discontinued Medications Generic Name Dose Route Start Last Admin Trade Name Freq PRN Reason Stop Dose Admin Ceftriaxone Sodium 1 gm 02/05/25 06:19 02/05/25 06:30 Ceftriaxone Sodium 1 Gm Vial IVPUSH 02/05/25 06:20 1 gm ONCE ONE Administration Magnesium Sulfate 2 gm in 50 mls @ 150 mls/hr 02/05/25 05:53 02/05/25 06:27 Magnesium Sulfate/H2o IV 02/05/25 06:12 Infused ONCE ONE Infusion Acetaminophen 1,000 mg in 100 mls @ 400 mls/hr 02/05/25 05:53 02/05/25 06:27 Ofirmev IV 02/05/25 06:07 Infused ONCE ONE Infusion Medical Decision Making Medical Decision Making [facility] Narrative: Patient presents in respiratory distress. Differential diagnosis includes flash pulmonary edema, COPD exacerbation, pneumothorax, pneumonia, ACS, pulmonary embolism, metabolic acidosis, among many others. The serious nature of the patient's symptoms makes this presentation complex, with potential for significant, worsening morbidity and mortality without immediate treatment/intervention. 6:41 AM 02/05/2025 (Dr. Natasha Giordano, D.O.) initial cardiac enzyme noted to be 59. EKG is nonischemic. Very low suspicion for ACS at this time. We will repeat cardiac enzyme in 2 hours. Work of breathing has improved. Her temperature is low grade but she does have a slightly elevated white blood cell count and of course her history of COPD makes her a flag for sirs criteria with potential sepsis. She may also have an elevated white blood cell count due to recent steroid use. She has no bandemia. We will treat as sepsis. Lactic acid and blood cultures added. Doxycycline and Rocephin added to her workup. She is not currently hypotensive and has a history of diastolic CHF so we will hold off on aggressive IV fluid hydration. She will receive a 500 cc fluid bolus at 999 ml/ hour. 6:56 AM 02/05/2025 (Dr. Natasha Giordano, Osmel.O.) case discussed with the hospitalist who will admit to hospital for further care and evaluation. Differential Diagnosis Differential Diagnoses: The differential diagnosis associated with the presentation includes (As above) Admission/Observation Consideration of admission/observation: Escalation of care including admission/observation considered Consult Healthcare Provider Management of the patient was discussed with: Hospitalist Lab Data MDM Lab Attestation statement: I reviewed the patient's lab results. 02/05/25 06:04 02/05/25 06:04 Labs: Lab Results 02/05/25 02/05/25 Range/Units 06:04 06:13 WBC 14.3 H (4.8-10.8) X10*3/uL RBC 3.77 L (4.20-5.50) X10*6/uL Hgb 12.0 (12.0-16.0) g/dl Hct 36.6 L (37.0-47.0) % MCV 97.1 (80.0-98.0) fL MCH 31.8 (27.0-33.0) pg MCHC 32.8 (31.0-35.0) g/dl RDW 15.1 (11.0-16.0) % Plt Count 434 H D (160-400) X10*3/uL MPV 8.9 L (9.4-12.3) fL Immature Gran % (Auto) 0.6 H (0.0-0.4) % Neut % (Auto) 66.7 (45-73) % Lymph % (Auto) 22.1 (20-40) % [place] % (Auto) 8.6 (2-11) % Eos % (Auto) 1.7 (0-4) % Baso % (Auto) 0.3 (0-2) % Lymph # (Auto) 3.2 (1.2-4.9) X10*3/uL [place] # (Auto) 1.2 (0.1-1.2) X10*3/uL Eos # (Auto) 0.3 (0.0-0.4) X10*3/uL Baso # (Auto) 0.1 (0.0-0.2) X10*3/uL Abs Immat Gran (auto) 0.09 H (0.00-0.03) X10*3/uL Absolute Neuts (auto) 9.5 H (2.0-8.3) x10*3/uL Absolute Nucleated RBC 0.000 (0.0-0.012) X10*3/uL Nucleated RBC % (auto) 0.0 (0.0-0.2) /100WBC VBG pH 7.42 (7.32-7.43) VBG pCO2 54 mmHg VBG pO2 98 mmHg VBG HCO3 35 H (22-26) mmol/L VBG O2 Saturation 99.0 % VBG Base Excess 9.4 mmol/L Sodium 141 (135-145) mmol/L Potassium 4.1 (3.3-5.1) mmol/L Chloride 101 (96-108) mmol/L Carbon Dioxide 29 (22-29) mmol/L Anion Gap 15 (12-20) BUN 14 (9-16) mg/dL Creatinine 0.98 (0.5-1.4) mg/dL Estim Creat Clear Calc 61.6 Estimated GFR 58 Random Glucose 111 (60-115) mg/dL Calcium 9.0 D (8.4-10.2) mg/dL Magnesium 1.9 (1.6-2.6) mg/dL Total Bilirubin 0.3 (0.0-1.0) mg/dL AST 24 (5-31) U/L ALT 15 (0-31) U/L Alkaline Phosphatase 68 (39-117) U/L B-Natriuretic Peptide 45 (<100) pg/mL Total Protein 6.8 (6.5-8.0) g/dL Albumin 4.1 (3.5-5.0) g/dL ABG Data Attestation ABG: I personally reviewed and interpreted this ABG as follows: Interpretation: Chronic respiratory acidosis with metabolic compensation Independent Interpretation I performed an independent interpretation of an: EKG and Plain X-Ray Interpretation: My independent interpretation of the ECG reveals normal sinus rhythm with rate of 94, normal axis, normal intervals, no ST elevations or depressions to suggest ischemic changes, relatively unchanged from previous on 01/21/2025. My independent interpretation of the chest x-ray reveals no consolidations, pulmonary edema, pleural effusion, pneumothorax, obvious bony abnormalities. Radiology Impression Discussion of test interpretation with radiology: I have reviewed the radiologist's reading. External Record Review External record reviewed: Inpatient record Prescription Management I considered prescription management with: Antibiotic Chronic Conditions Patient?s care impacted by: Other (Oxygen-dependent COPD) Critical Care Time Critical Care Time Critical Care Time: Yes Total Critical Care Time: 36 Attestation: CRITICAL CARE TIME: 36 minutes of critical care time was spent in direct patient care at the bedside or in the immediate area with this patient. Critical care was necessary to treat or prevent imminent or life-threatening deterioration of the following conditions acute respiratory failure with hypercapnia and hypoxia due to pneumonia, COPD exacerbation. This patient is high risk for decompensation and/or . This time was spent assessing and managing the patient, interpreting labs and imaging, coordinating care with other medical providers, gathering history from either the patient, their representatives, EMS or chart review, and discussing management with admitting team. Discharge Plan Discharge Clinical Impression: Chronic hypercapnic respiratory failure, Acute exacerbation of COPD with asthma, Pneumonia Patient Disposition: Admitted As Inpatient Print Language: Swedish
[2025-02-05] MEDS: Magnesium Sulfate/H2O 2 GM/50 ML PIGGYBACK IV (06:07)
[2025-02-05 06:14] LABS: MANUAL DIFF FLAG NO
[2025-02-05 06:15] LABS: Hematocrit 36.6 % (37.0-47.0); Hemoglobin 12.0 g/dl (12.0-16.0); Imm Gran Abs Auto 0.09 X10*3/uL (0.00-0.03); Imm Gran Pct Auto 0.6 % (0.0-0.4); Lymphocytes Absolute Auto 3.2 X10*3/uL (1.2-4.9); Mean Corpuscular HGB Conc 32.8 g/dl (31.0-35.0); Mean Corpuscular Hemoglobin 31.8 pg (27.0-33.0); Mean Corpuscular Volume 97.1 fL (80.0-98.0); NRBC Abs Auto 0.000 X10*3/uL (0.0-0.012); NRBC Pct Auto 0.0 /100WBC (0.0-0.2); Platelet Count 434 X10*3/uL (160-400); Red Blood Count 3.77 X10*6/uL (4.20-5.50); White Blood Count 14.3 X10*3/uL (4.8-10.8)
[2025-02-05 06:16] LABS: Venous Blood Gas Refer to POC result
[2025-02-05 06:18] LABS: VBG HCO3 35 mmol/L (22-26); VBG O2 % Saturation 99.0 %
[2025-02-05 06:29] LABS: Alanine Aminotransferase 15 U/L (0-31); Albumin Level 4.1 g/dL (3.5-5.0); Alkaline Phosphatase 68 U/L (39-117); Anion Gap 15 (12-20); Aspartate Amino Transferase 24 U/L (5-31); Blood Urea Nitrogen 14 mg/dL (9-16); Calcium 9.0 mg/dL (8.4-10.2); Carbon Dioxide 29 mmol/L (22-29); Chloride 101 mmol/L (96-108); Creatinine Clr Calc Pharmacy 61.6; Estimated Glomerular Filt Rate 58; Magnesium 1.9 mg/dL (1.6-2.6); Potassium 4.1 mmol/L (3.3-5.1); Sodium 141 mmol/L (135-145); Total Protein 6.8 g/dL (6.5-8.0)
[2025-02-05 06:35] LABS: B Type Natriuretic Peptide 45 pg/mL (<100)
[2025-02-05 06:40] LABS: Troponin-I High Sensitivity 59.0 ng/L (<3.5-17.0)
--- OUTSIDE RECORDS SUMMARY | 2025-02-05 06:47 | XMS_ITS | Encounter Summary ---
Author Organization [facility] Address [address] [place] [address] Care Team Providers Care Contact Center Specialist Name Role Phone Antione Segura Primary Care Provider [phone] Reason for Visit * Reason Onset Date Comments PAC Order Request 01/29/2025 Dr. Bautista 01/29/2025 Encounter Details Date Type Department Care Team (Late st Contact Info) Description 01/29/2025 Telephone [facility] [address] [place] [address] [phone] Lending Manager: Federico Hill Telephone Intake, Staff PAC Order Request; Dr. Bautista Social History Tobacco Use Types Packs/Day Years Used Date Smoking Tobacco: Former Cigarettes 1 38.8 0 06/14/1985 - 04/14/2024 Smokeless Tobacco: Never Comments Unknown Sex and Gender Information Value Date Recorded Sex Assigned at Female 01/10/2025 3:00 PM EDT Legal Sex Female 1:07 AM EDT Gender Identity Not on file Sexual Orientation Not on file documented as of this encounter Miscellaneous Notes * Telephone Encounter - Amalia Paredes RN - 01/29/2025 2:23 PM EDT Spoke to Pulmonary at [facility] regarding PFTs. They stated they can accept order fromDr. Bautista. Order faxed to [phone]. * Telephone Encounter - Amalia Paredes RN - 01/29/2025 1:38 PM EDT Spoke to patient. She stated not transferring care but would like to have the PFTs done closer to her, as it is a two [address] to [facility]. She is on portable oxygen and concerned that she would not have enough for such a long day of travel and testing. * Telephone Encounter - Diana Naeem - 01/29/2025 12:10 PM EDT Pt of Dr. Bautista would like PFT order faxed over to [facility] closer to her home, please advise pt # [phone] documented in this encounter Plan of Treatment Upcoming Encounters Date Type Department Care Team (Late st Contact Info) Description 05/30/2025 2:00 PM EST Follow-Up [facility] [address] [place] [phone] Lending Manager: Remy Santos MD [address] [place] [phone] documented as of this encounter Visit Diagnoses Not on filedocumented in this encounter Care Teams Contact Center Specialist Relationship Specialty Start Date End Date Antione Segura PA [address] [place] [phone] PCP - General Emergency Medicine 01/10/25 documented as of this encounter
--- OUTSIDE RECORDS SUMMARY | 2025-02-05 06:47 | XMS_ITS | Encounter Summary ---
Author Organization [facility] Address [address] [place] [id number] Phone Care Team Providers Care Post Framer Name Role Phone Lang Germain MD Unavailable [phone] Jennifer Duke INTERNAL MEDICINE HOSPITALIST Primary Care Provider Sirisha Huertas RADIO FREQUENCY TECHNICIAN Primary Care Provider Jn Cardoza MD Unavailable Denys Henriquez MD Unavailable [phone] Liyah Patterson MD Unavailable Liyah Patterson MD Primary Care Provider [phone] Antione Segura PA-C Primary Care Provider [phone] Rhett Cortez MD Unavailable Encounter Details Date Type Department Care Team (Late st Contact Info) Description 11/27/2021 Procedure Pass [facility], [address] [place] [address] Social History Tobacco Use Types Packs/Day Years [...] Care Team (Late st Contact Info) Description 02/06/2025 4:00 AM EDT Home [facility] Visit [facility] [address] [place] [address] Krysta Charles [address] [place] [address] 02/07/2025 12:15 PM EDT Home Care Visit [facility] [address] [place] [address] Josy Brooks PTA [address] [place] [address] 02/07/2025 3:20 PM EDT Office Visit [facility] [address] [place] [address] Antione Segura PA-C [address] [place] [address] 02/08/2025 1:00 AM EDT Home [facility] Visit [facility] [address] [place] [phone] Shakira Hand, RN [address] [place] [address] 02/08/2025 4:00 AM EDT Home [facility] Visit [facility] [address] [place] [address] Rosaline Han [address] [place] [address] 02/09/2025 11:00 AM EDT Home [facility] Visit [facility] [address] [place] [address] Josy Brooks, [facility] [address] [place] [address] 02/13/2025 4:00 AM EDT Home Care Visit [facility] [address] [place] [address] [address]Ros[address] [place] [address] 02/14/2025 Home Care Visit [facility] [address] [place] [address] Josy Brooks, [facility] [address] [place] [address] 02/15/2025 1:00 AM EDT Home Care Visit [facility] [address] [place] [address] Shakira Hand, RN [address] [place] [address] 02/15/2025 2:15 AM EDT Home Care Visit [facility] [address] [place] [address] aYne Lanza PT [address] [place] [address] 02/15/2025 4:00 AM EDT Home [facility] Visit [facility] [address] [place] [address] Rosaline Han [address] [place] [address] [email or web address] 02/19/2025 Home Care Visit [facility] [address] [place] [address] Yane Lanza, PT [address] [place] [address] 02/22/2025 12:30 AM EDT Appointment [facility] [address] [place] [address] Shakira Hand, RN [address] [place] [address] 02/22/2025 1:00 AM EDT Home Care Visit [facility] [address] [place] [address] Yane Lanza, PT [address] [place] [address] 04/17/2025 1:00 PM EST Office Visit [facility] [address] [place] [phone] Brittnee Vigil MD [address] [place] [address] 06/25/2025 9:30 AM EST Telemedicine [facility] Neu[facility] [address] [place] [address] Jn Cardoza MD [address] [facility], [address] [place] [address] documented as of this encounter Visit Diagnoses Not on filedocumented in this encounter Additional Health Concerns Assessment Noted Time PHQ-2 Depression Total Score: 0 05/25/20 19 9:02 AM EST documented as of this encounter Care Teams Post Framer Relationship Specialty Start Date End Date Jennifer Duke, INTERNAL MEDICINE HOSPITALIST [address] [place] [phone] [email or web address] PCP - General Family Medicine 01/31/20 06/22/23 Sirisha Huertas, AGA [address] [place] [address] [email or web address] PCP - General Nurse Practitioner 06/23/23 08/03/24 Liyah Patterson MD [address] [place] [phone] [email or web address] PCP - General Family Medicine 08/04/24 10/11/24 Antione Segura PA-C [address] [place] [address] [email or web address] PCP - General Physician Tobacco Sampler 10/12/24 Lang Germain MD [address] [place] [address] [email or web address] Insurance Assigned Provider 09/18/23 02/19/24 Jn Cardoza MD [address] [facility], [address] [place] [address] [email or web address] Neurology 02/03/24 Denys Henriquez MD [address] [place] [address] [place] [address] Pulmonary Disease 02/03/24 Liyah Patterson MD [address] [place] [address] [email or web address] Insurance Assigned Provider 02/19/24 01/20/25 Rhett Cortez MD [address] [place] [address] [email or web address] Insurance Assigned Provider 01/20/25 documented as of this encounter Additional Source Comments The information contained in this document represents components of the legal health record. It is not the complete legal health record.[facility]
[2025-02-05 06:52] LABS: Resp Syncy Virus RNA Qual PCR NEGATIVE (Negative); SARS COV2 PCR INHOUSE NEGATIVE (Negative)
--- NOTE | 2025-02-05 07:07 | PM.IMHP ---
History of Present Illness Date of Service: 02/05/25 Chief Complaint: SOB Patient is a 60-year-old female with a past medical history significant for COPD on home oxygen (1-3 L/min), hyperlipidemia, nephrolithiasis, CVA, obesity, moderate , chronic pain in and oxycodone, essential hypertension and multiple hospitalizations due to COPD exacerbation who presented to the ED due to shortness of breath and dyspnea. When she called EMS she was saturating in the low 90s. The patient was given DuoNeb and Solu-Medrol by EMS with moderate improvement. She was seen here 01/21 with similar symptoms. She is denying any fever at home, no chills but is having a productive cough with yellow sputum. She feels this is similar to previous COPD exacerbations. Review of Systems Constitutional: Constitutional: Denies chills, Denies fatigue, Denies fever(s) and Denies headache(s) Eyes: Eyes: Denies change in vision ENT: Denies headache(s), Denies nasal discharge and Denies sore throat Cardiovascular: Cardiovascular: Denies chest pain, Denies rapid heart rate, Denies leg edema, Denies lightheadedness and Reports dyspnea Respiratory: Respiratory: Reports chest congestion, Reports cough, Reports dyspnea and Reports wheezing Gastrointestinal: Gastrointestinal: Denies abdominal pain, Denies nausea and Denies vomiting Genitourinary: Genitourinary: Denies difficulty voiding, Denies dysuria and Denies urinary urgency Musculoskeletal: Musculoskeletal: Denies myalgias Integumentary/Breasts: Skin/Breast: Denies rash Neurologic: Denies confusion and Denies headache(s) Psychiatric: Psychiatric: Denies confusion Endocrine: Endocrine: Denies fatigue Hematologic/Lymphatic: Hematologic/Lymphatic: Denies easy bleeding and Denies easy bruising Allergic/Immunologic: Allergic/Immunologic: Reports wheezing [facility] Medical History Pulmonary nodules Diastolic heart failure Leukocytosis Chronic lung disease Chronic lung disease Hypoxia Panic disorder Hypertension Chronic hypercapnic respiratory failure Aortic stenosis Obesity (BMI 30-39.9) Asthma Acute exacerbation of chronic obstructive pulmonary disease Chronic lung disease Hypogammaglobulinemia Smoker JUANITO (obstructive sleep apnea) Allergies Elevated troponin COPD (chronic obstructive pulmonary disease) Trigeminal neuralgia Mixed hyperlipidemia Peripheral neuropathy Tobacco use disorder Mood disorder Surgical History History of esophagogastroduodenoscopy (EGD) History of colonoscopy History of lumbar discectomy History of tubal ligation History of excision of mass History of shoulder surgery Social History Household Members: Family Household Members Other:: dog Housing: House Do you presently have visiting nurse or other home services: Yes Alcohol intake: never Comment: rings appropriately Patient Tobacco Use Status: Former Tobacco user Tobacco use type: Cigarette Cigarette Packs Per Day: 4 Cigarettes Per Day: 80.0 Years Smoked: 40 Smoked in Last 30 Days: Yes e-Cigarette/Vaping Use: Never Used Second Hand Smoke Exposure: No Use of substances other than those prescribed or required for medical reasons: No Substance Use Type: Marijuana Advance Directives: Yes Advance Directives on File: Yes Advance Directives Date on File: 03/09/23 Patient : No service: No Meds Allergies Allergy/AdvReac Type Severity Reaction Status Date / Time Iodinated Contrast Media (IV Allergy Intermediate HIVES Verified 02/05/25 05:53 CONTRAST) latex (LATEX) Allergy Unknown RASH Verified 02/05/25 05:53 adhesive tape Allergy Rash Verified 02/05/25 05:53 morphine (MORPHINE) AdvReac Unknown VOMITING Verified 02/05/25 05:53 Active Medications: Current Medications Acetaminophen (Acetaminophen 325 Mg Tablet) 975 mg PO Q6H PRN PRN Reason: Pain, Mild 1-3,fever,headache Albuterol/Ipratropium (Albuterol/Iprat 2.5/0.5mg 3 Ml Ampul.Neb) 3 ml INHALE RQ4H WHILE AWAKE [place]O Benzonatate (Benzonatate 100 Mg Capsule) 100 mg PO TID PRN PRN Reason: Cough Calcium Carbonate (Calcium Carbonate 750 Mg Tab.Chew) 750 mg PO Q4H PRN PRN Reason: Heartburn Enoxaparin Sodium (Enoxaparin Sodium 40 Mg/0.4 Ml Syringe) 40 mg SUBCUT Q24H [place] Doxycycline Hyclate 100 mg/ (Sodium Chloride) 250 mls @ 166.67 mls/hr IV ONCE ONE Stop: 02/05/25 07:48 Last Admin: 02/05/25 06:33 Dose: 166.67 mls/hr Sodium Chloride (Ns) 500 mls @ 999 mls/hr IV .Q31M CHAP[place]O Stop: 02/05/25 07:15 Last Admin: 02/05/25 06:57 Dose: 999 mls/hr Magnesium Hydroxide (Milk Of Magnesia 30 Ml Oral.Susp) 30 ml PO DAILY PRN PRN Reason: Constipation Melatonin (Melatonin 3 Mg Tablet) 6 mg PO BEDTIME PRN PRN Reason: Insomnia Methylprednisolone Sodium Succinate (Methylprednisolone Sod Succ 125 Mg/2 Ml Vial) 60 mg IVPUSH BID [place] Ondansetron HCl (Ondansetron Hcl 4 Mg/2 Ml Vial) 4 mg IVPUSH Q8H PRN PRN Reason: Nausea and Vomiting Oxycodone HCl (Oxycodone Hcl Immed Release 5 Mg Tablet) 5 mg PO Q6H PRN PRN Reason: Pain, Severe (Pain Scale 7-10) Sodium Chloride (0.9 % Sodium Chloride Flush 3 Ml Syringe) 3 ml IVFLUSH QSHIFT [place]O Tramadol HCl (Tramadol Hcl 50 Mg Tablet) 50 mg PO Q6H PRN PRN Reason: Pain, Moderate(Pain Scale 4-6) Home Medications ?Medication ?Instructions ?Recorded ?Confirmed ?Last Taken ?Type atorvastatin 80 mg tablet 80 mg PO DAILY@199903/04/23 01/04/25 01/03/25 History mneqprqvkd-caegegyjdtrtb-aubpjxec 1 tab PO DAILY MRX1 PRN Migraine 03/04/23 01/04/25 05/21/24 20:00 History 50 mg-325 mg-40 mg tablet Headache duloxetine 60 mg capsule,delayed 60 mg PO BID@0500,199903/04/23 01/04/25 01/04/25 History release gabapentin 300 mg capsule 1,200 mg PO TID@0500,1200,199903/04/23 01/04/25 01/04/25 12:00 History hyoscyamine sulfate 0.125 mg tablet 0.25 mg PO Q6H PRN Abdominal 03/04/23 01/04/25 05/21/24 20:00 History Discomfort Oxygen Home Use 04/16/23 10/29/24 10/28/24 History prazosin 2 mg capsule 2 mg PO DAILY@199904/16/23 01/04/25 01/03/25 History albuterol sulfate 90 mcg/actuation 2 puff inhalation Q4H PRN 01/31/24 01/04/25 01/04/25 History aerosol inhaler Shortness Of Breath Or Wheezing aspirin 81 mg tablet,delayed 81 mg PO DAILY@199905/22/24 01/04/25 01/03/25 History release calcium 600 mg (as 1 tab PO DAILY@199906/20/24 01/04/25 01/03/25 History carbonate)-vitamin D3 5 mcg (200 unit) tablet baclofen 20 mg tablet 20 mg PO TID@0500,1200,199910/29/24 01/04/25 01/04/25 12:00 History aripiprazole 5 mg tablet (Abilify) 5 mg PO DAILY 12/01/24 01/04/25 01/04/25 History oxcarbazepine 300 mg tablet 300 mg PO BID 12/21/24 01/04/25 01/04/25 History clobetasol 0.05 % topical cream 1 appl topical BID 01/04/25 01/04/25 01/04/25 History lidocaine 4 % topical gel 1 appl topical TID PRN Pain 01/04/25 01/04/25 Unknown History lorazepam 0.5 mg tablet 0.5 mg PO BID PRN MODERATE Anxiety 01/04/25 01/04/25 Unknown History polyethylene glycol 3350 17 17 g PO DAILY PRN Constipation 01/04/25 01/04/25 Unknown History gram/dose oral powder (Miralax) Physical Exam Vital Signs and Narrative: Vital Signs: Last Vital Signs Temp 100.2 F 02/05/25 06:11 Pulse 91 02/05/25 06:11 Resp 21 H 02/05/25 06:11 BP 127/60 02/05/25 06:11 Pulse Ox 90 L 02/05/25 06:11 O2 Del Method Nasal Cannula 02/05/25 06:11 O2 Flow Rate 3 02/05/25 06:11 BMI result Body Mass Index 41.2 General: AOx3, no acute distress Resp: CTA bilaterally CVS: S1, S2, RRR GI: +BS, NT, no distention Skin: Warm, dry Neuro: Cranial nerves II-XII grossly intact bilaterally. Motor grossly intact bilaterally Extremities: No edema Psych: Appropriate affect Const: General: No confusion Orientation/consciousness: No confusion Neuro: General: No confusion Results Labs 02/05/25 06:04 02/05/25 06:04 Labs: Laboratory Results - last 24 hr 02/05/25 02/05/25 02/05/25 06:04 06:13 06:15 MCV 97.1 MCH 31.8 MCHC 32.8 RDW 15.1 Plt Count 434 H D MPV 8.9 L Immature Gran % (Auto) 0.6 H Neut % (Auto) 66.7 Lymph % (Auto) 22.1 Hutchinson % (Auto) 8.6 Eos % (Auto) 1.7 Baso % (Auto) 0.3 Lymph # (Auto) 3.2 [place] # (Auto) 1.2 Eos # (Auto) 0.3 Baso # (Auto) 0.1 Abs Immat Gran (auto) 0.09 H Absolute Neuts (auto) 9.5 H Absolute Nucleated RBC 0.000 Nucleated RBC % (auto) 0.0 VBG pH 7.42 VBG pCO2 54 VBG pO2 98 VBG HCO3 35 H VBG O2 Saturation 99.0 VBG Base Excess 9.4 Anion Gap 15 Estim Creat Clear Calc 61.6 Estimated GFR 58 Random Glucose 111 Lactic Acid 2.0 Calcium 9.0 D Magnesium 1.9 Total Bilirubin 0.3 AST 24 ALT 15 Alkaline Phosphatase 68 B-Natriuretic Peptide 45 Total Protein 6.8 Albumin 4.1 Influenza Type A (PCR) NEGATIVE Influenza Type B (PCR) NEGATIVE RSV RNA Qual (PCR) NEGATIVE SARS-CoV-2 RNA (RT-PCR) NEGATIVE Assessment and Plan (1) Sepsis: Status: Acute (2) Acute exacerbation of COPD with asthma: Status: Acute (3) Morbid obesity: Status: Acute (4) Acute on chronic respiratory failure with hypoxia and hypercapnia: Status: Acute Plan Patient is a 60-year-old female with a past medical history significant for COPD on home oxygen (1-3 L/min), hyperlipidemia, nephrolithiasis, CVA, obesity, moderate , chronic pain in and oxycodone, essential hypertension and multiple hospitalizations due to COPD exacerbation who presented to the ED due to shortness of breath and dyspnea. Acute on chronic hypoxic respiratory failure with hypercapnia and sepsis secondary to acute COPD exacerbation - WBC 14.3, tachycardic and tachypneic, lactic acid 2.0, blood cultures x2 pending, not severe sepsis - COVID/flu/RSV negative - chest x-ray with plan of the day or bronchitis, fever bronchitis - EKG normal - Trop 59.0, repeat pending, patient denies chest pain - BNP negative - VBG with PCO2 of 54, chronic near baseline. HCO3 also elevated at 35 near baseline. - patient given DuoNeb and Solu-Medrol prior to arrival with moderate improvement - given 500 mL IV fluids if he does, blood pressure stable, avoid further fluid resuscitation due to diastolic CHF - started on doxycycline and ceftriaxone in ED, continue doxycycline - continue nebulizers and Solu-Medrol - titrate oxygen - monitor CBC and BMP Elevated troponin - troponin 59.0, repeat pending - EKG nonischemic - patient denies chest pain - monitor on telemetry Chronic HFpEF, no acute exacerbation - BNP normal - chest x-ray with possible edema versus bronchitis, bronchitis fever, doubt CHF decompensation HLD - continue statin HTN - continue verapamil, losartan, prazosin History of trigeminal neuralgia - continue gabapentin, baclofen, topical lidocaine and oxcarbazepine Chronic back pain - continue oxycodone Moderate aortic stenosis - no evidence of acute CHF Mood disorder - continue Ativan as needed, duloxetine and aripiprazole History CVA - continue aspirin and statin Class 3 obesity - BMI 41.2, weight loss encouraged Med rec pending Full code VTE prophylaxis: lovenox Patient with acute on chronic hypoxic respiratory failure with hypercapnia and sepsis secondary to acute COPD exacerbation, requiring admission for at least 2 midnights stay for breathing treatments, steroids and antibiotics. Quality Stroke Does the patient have a stroke diagnosis?: No VTE Prior VTE?: No VTE Risk Level:: Medical - moderate - high VTE Device Contraindication: Treatment Not Indicated VTE Drug Contraindication: N/A - Med Ordered
--- NOTE | 2025-02-05 07:36 | PC.NURSE ---
Assumed care of pt this AM, introduced self. Pt a&ox4, resp laboured though appears at baseline, states significant improvement since arrival. Speaking in clear full sentences. Endorses midback pain from coughing and diff breathing over past 2 days. NSR on monitor, VS WNL. Awaiting bed assignment.
[2025-02-05] MEDS: Albuterol/Iprat 2.5/0.5MG 3 ML AMPUL.NEB INHALE ×4 (08:17→20:07)
[2025-02-05] MEDS: 0.9 % Sodium Chloride Flush 3 ML SYRINGE IVFLUSH ×3 (08:55→22:05)
--- NOTE | 2025-02-05 09:49 | PHA.MEDREC ---
Addendum entered by Loida Burnett [facility] 02/08/25 12:46: Pt takes certain medications at very specific times in the morning: - @ 0600: Baclofen Gabapentin Dulouxetine Trleptal - @ 0900 Abilify Valsartan Verapamil Roflumilast Addendum entered by Loida Burnett [facility] 02/05/25 10:04: Reviewed by [facility] Original Note: Pharmacy Consult ? Medication Reconciliation Pharmacy has completed the medication reconciliation. Patient states she is no longer taking Benzonatate 100 mg, Clobetasol cream, Furosamide 10 mg, Mucus DM, Miralax powder. Patient confirmed Oxycarbazepine 300 mg BID, even though claims has TID, Prednisone 10 mg taper. Patient has 3 days left she is to takes 20 mg today then decrease to 10 mg daily for 2 days. Patient states she takes Lorazapam 0.5 mg BID ,however she would like her morning dose later in the day. Patient last had her medications last night.
[2025-02-05] MEDS: oxyCODONE HCl Immed Release 5 MG TABLET PO ×2 (09:50→16:23)
[2025-02-05 10:18] LABS: Troponin-I High Sensitivity 58.3 ng/L (<3.5-17.0)
--- NOTE | 2025-02-05 12:21 | PM.EVENT ---
Event Note Date of Service: 02/05/25 Event Note: Patient is a 60-year-old female with a past medical history significant for COPD on home oxygen (1-3 L/min), hyperlipidemia, nephrolithiasis, CVA, obesity, moderate , chronic pain in and oxycodone, essential hypertension and multiple hospitalizations due to COPD exacerbation who presented to the ED due to shortness of breath and dyspnea. Acute on chronic hypoxic respiratory failure with hypercapnia and sepsis secondary to acute COPD exacerbation - WBC 14.3, tachycardic and tachypneic, lactic acid 2.0, blood cultures x2 pending, not severe sepsis - COVID/flu/RSV negative - chest x-ray with plan of the day or bronchitis, fever bronchitis - EKG normal - Trop 59.0, repeat pending, patient denies chest pain - BNP negative - VBG with PCO2 of 54, chronic near baseline. HCO3 also elevated at 35 near baseline. - patient given DuoNeb and Solu-Medrol prior to arrival with moderate improvement - given 500 mL IV fluids if he does, blood pressure stable, avoid further fluid resuscitation due to diastolic CHF - started on doxycycline and ceftriaxone in ED, continue doxycycline - continue nebulizers and Solu-Medrol - titrate oxygen - monitor CBC and BMP Elevated troponin - troponin 59.0, repeat pending - EKG nonischemic - patient denies chest pain - monitor on telemetry Chronic HFpEF, no acute exacerbation - BNP normal - chest x-ray with possible edema versus bronchitis, bronchitis fever, doubt CHF decompensation HLD - continue statin HTN - continue verapamil, losartan, prazosin History of trigeminal neuralgia - continue gabapentin, baclofen, topical lidocaine and oxcarbazepine Chronic back pain - continue oxycodone Moderate aortic stenosis - no evidence of acute CHF Mood disorder - continue Ativan as needed, duloxetine and aripiprazole History CVA - continue aspirin and statin Class 3 obesity - BMI 41.2, weight loss encouraged Med rec pending Full code VTE prophylaxis: lovenox Patient with acute on chronic hypoxic respiratory failure with hypercapnia and sepsis secondary to acute COPD exacerbation, requiring admission for at least 2 midnights stay for breathing treatments, steroids and antibiotics. Time Spent With Patient Time: Total time managing care of this patient today ____ minutes.
[2025-02-05] MEDS: Butalb/Acetamin/Caff 50/325/40 TABLET 1 TAB PO (22:03)
[2025-02-05] MEDS: Aspirin Enteric Coated 81 MG TABLET.DR PO (22:05)
[2025-02-05] MEDS: GLYCOPYRROLATE INHALE (22:29)
[2025-02-05] MEDS: FORMOTEROL INHALE (22:29)
[2025-02-05] MEDS: BUDESONIDE INHALE (22:29)
[2025-02-06] VITALS (13 sets, daily range): BP systolic 116–149; BP diastolic 58–73; PULSE 81–124; RESP 17–20; TEMP 36.1–36.4; O2SAT 90–99
[2025-02-06 06:04] LABS: MANUAL DIFF FLAG NO
[2025-02-06 06:23] LABS: Anion Gap 15 (12-20); Blood Urea Nitrogen 13 mg/dL (9-16); Calcium 10.1 mg/dL (8.4-10.2); Carbon Dioxide 25 mmol/L (22-29); Chloride 105 mmol/L (96-108); Creatinine Clr Calc Pharmacy 94.2; Estimated Glomerular Filt Rate > 60; Potassium 4.7 mmol/L (3.3-5.1); Sodium 140 mmol/L (135-145)
[2025-02-06 06:56] LABS: Hematocrit 38.7 % (37.0-47.0); Hemoglobin 12.5 g/dl (12.0-16.0); Imm Gran Abs Auto 0.10 X10*3/uL (0.00-0.03); Imm Gran Pct Auto 0.8 % (0.0-0.4); Lymphocytes Absolute Auto 0.8 X10*3/uL (1.2-4.9); Mean Corpuscular HGB Conc 32.3 g/dl (31.0-35.0); Mean Corpuscular Hemoglobin 31.3 pg (27.0-33.0); Mean Corpuscular Volume 97.0 fL (80.0-98.0); NRBC Abs Auto 0.000 X10*3/uL (0.0-0.012); NRBC Pct Auto 0.0 /100WBC (0.0-0.2); Platelet Count 449 X10*3/uL (160-400); Red Blood Count 3.99 X10*6/uL (4.20-5.50); White Blood Count 12.8 X10*3/uL (4.8-10.8)
[2025-02-06] MEDS: FORMOTEROL INHALE ×2 (07:50→18:26)
[2025-02-06] MEDS: GLYCOPYRROLATE INHALE ×2 (07:50→18:26)
[2025-02-06] MEDS: Albuterol/Iprat 2.5/0.5MG 3 ML AMPUL.NEB INHALE ×2 (07:50→13:25)
[2025-02-06] MEDS: BUDESONIDE INHALE ×2 (07:50→18:26)
[2025-02-06] MEDS: Butalb/Acetamin/Caff 50/325/40 TABLET 1 TAB PO (08:47)
[2025-02-06] MEDS: oxyCODONE HCl Immed Release 5 MG TABLET PO ×2 (08:48→18:10)
[2025-02-06] MEDS: 0.9 % Sodium Chloride Flush 3 ML SYRINGE IVFLUSH ×3 (08:48→20:55)
--- NOTE | 2025-02-06 09:34 | MHC.CM.PN ---
Pt. lives with her , She receives home care services from [facility], return referral sent via careport. Pt. has home O2, walker, shower chair. PCP confirmed: Antione Segura, HCP on file and confirmed, her Chris. to transport her home at [place], DCP; home, [facility] services. CM to follow for DC needs.
--- NOTE | 2025-02-06 15:00 | CA_ITS ---
Transthoracic Echocardiogram Patient (Last, First, Middle): Zulma Alves R Gender: Female Date of : 1965 Age: 60 Procedure Date: 02/06/2025 Procedure Type: Transthoracic Echocardiogram Location[place] [facility] [place] Height: 152.4 cm Weight: 93.44 kg BSA: 1.89 m2 Heart Rate: bpm BP: 120 / 60 mmHg [employer]: VH Referring MD: Giulia Henriquez NP Symptoms: sob, tachycardia Study Quality: Fair ECG Rhythm: Sinus Conclusions: - The left ventricular systolic function is hyperdynamic. The visually estimated ejection fraction is >70%. - There is mild aortic valve stenosis. Findings Left Ventricle Normal left ventricular cavity size. There is moderately increased left ventricular wall thickness. The left ventricular systolic function is hyperdynamic. The visually estimated ejection fraction is >70%. There is no evidence of regional wall motion abnormalities. Diastolic function is normal for age. Low-level intraventricular and outflow tract gradients, but no clear evidence of any obstruction. Right Ventricle Normal right ventricular cavity size and systolic function. Atria Both atria are normal in size. Aortic Valve The aortic valve was not well visualized. There is mild aortic valve stenosis. The mean gradient is 17 mmHg. The aortic valve area is 1.63 cm2. There is no aortic valve regurgitation. Dimensionless index 0.41. Mitral Valve The mitral valve appears normal. There is no mitral valve regurgitation. There is no mitral valve stenosis. Pulmonic Valve The pulmonic valve is likely normal. Tricuspid Valve There is trace tricuspid valve regurgitation. There is no evidence of pulmonary hypertension. Great Vessels The asc aorta is normal in size. Small plaque is seen in the sinuses of Valsalva. Venous The inferior vena cava is normal in size and collapses greater than 50% with inspiration. Pericardium/Pleural There is no evidence of pericardial effusion. Prior Study Comparison No significant change compared to prior study dated: 12/01/2024. Measurements 2D Linear Measurements IVSd: 1.32 0.6-0.9/0.6-1.0 cm LVIDd: 3.34 3.9-5.3/4.2-5.9 cm LVIDd Index: 1.77 2.4-3.2/2.2-3.1 cm/m2 LVIDs: 2.15 2.0-3.6 cm LVPWd: 1.36 0.7-1.1 cm Ao Root: 2.90 2.1-3.5 cm LA Diam: 3.60 2.7-3.8/3.0-4.0 cm LAIDs Index: 1.90 1.5-2.3 cm/m2 LV Mass: 188.14 67-162/88-224 g LV Mass Index: 99.55 43-95/49-115 g/m2 LVOT Diam: 2.00 3.0+(-)1.3 cm 2D Systolic Function EF 4C: 61.70 >55% EF 2C: 68.30 >55% EF BiP: 65.90 >55% Mitral Valve MV Pk E: 1.00 MV PK A: 1.23 MV Decel Time: 209.00 E/A: 0.80 E'Lateral: 12.70 E'Medial: 7.51 E/E' Med: 13.30 E/E' Lat: 7.90 PHT: 61.00 MVA PHT: 3.61 Decel Payette: 4.78 Aortic Valve AoV Pk Griffin: 3.05 AoV Mn Griffin: 1.85 AoV VTI: 0.59 AoV Pk Grad: 37.00 Aov Mn Grad: 17.00 PERICO Cont.VTI: 1.63 LVOT LVOT Pk Griffin: 1.24 LVOT Mn Griffin: 0.81 LVOT VTI: 0.31 LVOT Pk Grad: 6.00 LVOT Mn Grad: 3.00 LVOT Diam: 2.00 LVOT Area: 3.14 Diastolic Function MV Pk E: 1.00 MV Pk A: 1.23 E/A: 0.80 E'Medial: 7.51 E/E' Med: 13.30 E' Laterial: 12.70 E/E' Lat: 7.90 Right Ventricle TAPSE (mm): 29.00 TVS' Griffin: 15.00 Tricuspid Valve TR Pk Griffin: 2.14 TR Pk Grad: 18.00 RA Press: 3.00 RVSP: 21.00 Great Vessels Aorta Ao Root-2D: 2.90 2.0-3.7 cm Ao Asc: 3.50 2.1-3.4 cm Pulmonary Valve PV Pk Griffin: 1.09 Peak PV Grad: 5.00 Updated in Other Vendor System with Status of Final Wilfredo Bhatti MD electronically signed on 02/07/2025 10:45:09 AM with status of Final
--- NOTE | 2025-02-06 15:12 | HO.PM.IMPN ---
Subjective Subjective Date of Service: 02/06/25 Review of Systems Follow up COPD exacerbation Still with sob and tachycardia Physical Exam Exam: Exam: Appearing in no acute distress lung sounds exp wheezing heart regular rate rhythm, clear S1, S2 positive bowel sounds, abdomen is soft, nontender neuro patient is alert x3, no focal deficits Vital Signs: Vital Signs: Last Vital Signs Temp 97.4 F 02/06/25 11:09 Pulse 81 02/06/25 13:28 Resp 20 02/06/25 13:28 BP 132/60 02/06/25 11:09 Pulse Ox 93 02/06/25 11:09 O2 Del Method CPAP 02/06/25 11:09 O2 Flow Rate 2 02/06/25 05:57 BMI result Body Mass Index 40.0 Objective Data Active Medications Acetaminophen (Acetaminophen 325 Mg Tablet) 975 mg PO Q6H PRN PRN Reason: Pain, Mild 1-3,fever,headache Acetaminophen/Butalbital/Caffeine (Butalb/Acetamin/Caff 50/325/40 Tablet) 1 tab PO DAILY MRX1 PRN PRN Reason: Migraine Headache Last Admin: 02/06/25 08:47 Dose: 1 tab Documented By: GARFIELD Albuterol Sulfate (Albuterol Sulfate 90 Mcg 8 Gm Inhaler) 2 puff INHALE Q4H PRN PRN Reason: Shortness Of Breath Or Wheezing Aripiprazole (Aripiprazole 5 Mg Tablet) 5 mg PO DAILY@0600 [facility] Last Admin: 02/06/25 06:13 Dose: 5 mg Documented By: PHUC Aspirin (Aspirin Enteric Coated 81 Mg Tablet.) 81 mg PO DAILY@1999 [facility] Last Admin: 02/05/25 22:05 Dose: 81 mg Documented By: PHUC Atorvastatin Calcium (Atorvastatin Calcium 80 Mg Tablet) 80 mg PO DAILY@1999 [facility] Last Admin: 02/05/25 21:59 Dose: 80 mg Documented By: PHUC Baclofen (Baclofen 20 Mg Tablet) 20 mg PO TID@0500,1200,1999 [facility] Last Admin: 02/06/25 13:15 Dose: 20 mg Documented By: GARFIELD Benzonatate (Benzonatate 100 Mg Capsule) 100 mg PO TID PRN PRN Reason: Cough Calcium Carbonate (Calcium Carbonate 750 Mg Tab.Chew) 750 mg PO Q4H PRN PRN Reason: Heartburn Last Admin: 02/05/25 22:04 Dose: 750 mg Documented By: PHUC Duloxetine HCl (Duloxetine Hcl 60 Mg Capsule.) 60 mg PO BID@599,1999 [facility] Last Admin: 02/06/25 06:12 Dose: 60 mg Documented By: PHUC Enoxaparin Sodium (Enoxaparin Sodium 40 Mg/0.4 Ml Syringe) 40 mg SUBCUT Q24H [facility] Last Admin: 02/06/25 08:47 Dose: 40 mg Documented By: GARFIELD Gabapentin (Gabapentin 400 Mg Capsule) 1,200 mg PO TID@0600,1200,1999 [facility] Last Admin: 02/06/25 13:15 Dose: 1,200 mg Documented By: GARFIELD Doxycycline Hyclate 100 mg/ (Sodium Chloride) 250 mls @ 166.67 mls/hr IV Q12H [facility] Last Infusion: 02/06/25 08:48 Dose: Infused Documented By: GARFIELD Levalbuterol HCl (Levalbuterol Hcl 1.25 Mg/3 Ml Vial.Santa) 1.25 mg INHALE RQ4H [facility] Lorazepam (Lorazepam 0.5 Mg Tablet) 0.5 mg PO DAILY PRN PRN Reason: Anxiety Last Admin: 02/06/25 13:15 Dose: 0.5 mg Documented By: GARFIELD Lorazepam (Lorazepam 0.5 Mg Tablet) 0.5 mg PO BEDTIME@1999 [facility] Last Admin: 02/05/25 22:05 Dose: 0.5 mg Documented By: PHUC Magnesium Hydroxide (Milk Of Magnesia 30 Ml Oral.Susp) 30 ml PO DAILY PRN PRN Reason: Constipation Melatonin (Melatonin 3 Mg Tablet) 6 mg PO BEDTIME PRN PRN Reason: Insomnia Methylprednisolone Sodium Succinate (Methylprednisolone Sod Succ 125 Mg/2 Ml Vial) 40 mg IVPUSH BID [facility] Patient Own( Budesonide-Glycopyr- Formoterol [Breztri Aerosphere] 160-9-4. 8 Mc 2 inhalation INHALE RBID@0600,1800 [facility] Last Admin: 02/06/25 07:50 Dose: 2 inhalation Documented By: WILL Nystatin (Nystatin Powder 15 Gm Bottle) 1 appl TOPICAL BID [facility]; Protocol Last Admin: 02/06/25 08:49 Dose: 1 appl Documented By: GARFIELD Omeprazole (Omeprazole 20 Mg Capsule.Dr) 20 mg PO DAILY@0630 [facility] Last Admin: 02/06/25 06:14 Dose: 20 mg Documented By: PHUC Ondansetron HCl (Ondansetron Hcl 4 Mg/2 Ml Vial) 4 mg IVPUSH Q8H PRN PRN Reason: Nausea and Vomiting Oxcarbazepine (Oxcarbazepine 300 Mg Tablet) 300 mg PO BID@0600,1800 [facility] Last Admin: 02/06/25 06:12 Dose: 300 mg Documented By: PHUC Oxycodone HCl (Oxycodone Hcl Immed Release 5 Mg Tablet) 5 mg PO Q6H PRN PRN Reason: Pain, Severe (Pain Scale 7-10) Last Admin: 02/06/25 08:48 Dose: 5 mg Documented By: GARFIELD Polyethylene Glycol (Polyethylene Glycol 3350 17 Gm Powd.Pack) 17 gm PO DAILY PRN PRN Reason: Constipation Prazosin HCl (Prazosin Hcl 1 Mg Capsule) 2 mg PO DAILY@1999 [facility]; Protocol Last Admin: 02/05/25 21:59 Dose: 2 mg Documented By: PHUC Roflumilast (Roflumilast 500 Mcg Tablet) 500 mcg PO DAILY@06 [facility] Last Admin: 02/06/25 06:14 Dose: 500 mcg Documented By: PHUC Sodium Chloride (0.9 % Sodium Chloride Flush 3 Ml Syringe) 3 ml [facility] [place] Last Admin: 02/06/25 08:48 Dose: 3 ml Documented By: GARFIELD Tramadol HCl (Tramadol Hcl 50 Mg Tablet) 50 mg PO Q6H PRN PRN Reason: Pain, Moderate(Pain Scale 4-6) Last Admin: 02/06/25 13:15 Dose: 50 mg Documented By: GARFIELD Valsartan (Valsartan 40 Mg Tablet) 40 mg PO DAILY@0600 [facility]; Protocol Last Admin: 02/06/25 06:13 Dose: 40 mg Documented By: PHUC Verapamil HCl (Verapamil Hcl 120 Mg Tablet) 120 mg PO BID@0600,1800 [facility]; Protocol Last Admin: 02/06/25 06:13 Dose: 120 mg Documented By: PHUC Labs 02/06/25 05:38 02/06/25 05:38 Labs: Laboratory Results - last 24 hr 02/06/25 05:38 MCV 97.0 MCH 31.3 MCHC 32.3 RDW 14.6 Plt Count 449 H MPV 9.4 Immature Gran % (Auto) 0.8 H Neut % (Auto) 88.6 H Lymph % (Auto) 6.3 L B[place] % (Auto) 4.1 Eos % (Auto) 0.1 Baso % (Auto) 0.1 Lymph # (Auto) 0.8 L [place] # (Auto) 0.5 Eos # (Auto) 0.0 Baso # (Auto) 0.0 Abs Immat Gran (auto) 0.10 H Absolute Neuts (auto) 11.4 H Absolute Nucleated RBC 0.000 Nucleated RBC % (auto) 0.0 Anion Gap 15 Estim Creat Clear Calc 94.2 Estimated GFR > 60 Random Glucose 154 H Calcium 10.1 D Microbiology Microbiology Results: Microbiology 02/05/25 06:25 Blood Culture - Preliminary Blood - Venous No growth after 24 hours. 02/05/25 06:15 Blood Culture - Preliminary Blood - Venous No growth after 24 hours. Assessment and Plan (1) Chronic lung disease: Status: Acute Plan Patient is a 60-year-old female with a past medical history significant for COPD on home oxygen (1-3 L/min), hyperlipidemia, nephrolithiasis, CVA, obesity, moderate , chronic pain in and oxycodone, essential hypertension and multiple hospitalizations due to COPD exacerbation who presented to the ED due to shortness of breath and dyspnea. Acute on chronic hypoxic respiratory failure with hypercapnia secondary to acute COPD exacerbation/bronchitis WBC 14.3 from steroid use, tachycardic and tachypneic from updrafts and exacerbation, lactic acid 2.0 from updrafts, blood cultures x2 negative COVID/flu/RSV negative chest x-ray with plan of the day or bronchitis, fever bronchitis VBG with PCO2 of 54, chronic near baseline. HCO3 also elevated at 35 near baseline. continue doxycycline for bronchitis continue nebulizers (xopenex due to tachycardia) and Solu-Medrol On home oxygen, titrate oxygen to keep oxygen saturation greater than 91% Elevated troponin troponin 59.0,58.3 flat EKG nonischemic patient denies chest pain Chronic HFpEF, no acute exacerbation BNP normal chest x-ray with possible edema versus bronchitis, bronchitis fever, doubt CHF decompensation Check echo HLD continue statin HTN continue verapamil, losartan, prazosin History of trigeminal neuralgia continue gabapentin, baclofen, topical lidocaine and oxcarbazepine Chronic back pain continue oxycodone Mood disorder continue Ativan as needed, duloxetine and aripiprazole History CVA continue aspirin and statin Class 3 obesity BMI 40 Discussed importance of weight management as this may be contributing to worsening of other comorbidities Full code VTE prophylaxis: lovenox Quality Stroke Does the patient have a stroke diagnosis?: No VTE Prior VTE?: No VTE Risk Level:: Medical - moderate - high VTE Device Contraindication: Treatment Not Indicated VTE Drug Contraindication: N/A - Med Ordered
[2025-02-06] MEDS: Sodium Chloride 0.65 % Nasal 44 ML SPRBTL 1 SPRAY NOSTRIL-B (18:27)
[2025-02-06] MEDS: Calcium + Vitamin D 250 MG TABLET 500 MG PO (20:59)
[2025-02-06] MEDS: Aspirin Enteric Coated 81 MG TABLET.DR PO (20:59)
[2025-02-07] VITALS (16 sets, daily range): BP systolic 125–154; BP diastolic 60–76; PULSE 60–94; RESP 17–18; TEMP 36.3–36.6; O2SAT 93–98
[2025-02-07 07:11] LABS: MANUAL DIFF FLAG NO
[2025-02-07 07:16] LABS: Hematocrit 34.2 % (37.0-47.0); Hemoglobin 10.8 g/dl (12.0-16.0); Imm Gran Abs Auto 0.09 X10*3/uL (0.00-0.03); Imm Gran Pct Auto 0.8 % (0.0-0.4); Lymphocytes Absolute Auto 1.0 X10*3/uL (1.2-4.9); Mean Corpuscular HGB Conc 31.6 g/dl (31.0-35.0); Mean Corpuscular Hemoglobin 31.1 pg (27.0-33.0); Mean Corpuscular Volume 98.6 fL (80.0-98.0); NRBC Abs Auto 0.000 X10*3/uL (0.0-0.012); NRBC Pct Auto 0.0 /100WBC (0.0-0.2); Platelet Count 387 X10*3/uL (160-400); Red Blood Count 3.47 X10*6/uL (4.20-5.50); White Blood Count 10.8 X10*3/uL (4.8-10.8)
[2025-02-07 07:26] LABS: Anion Gap 11 (12-20); Blood Urea Nitrogen 16 mg/dL (9-16); Calcium 9.2 mg/dL (8.4-10.2); Carbon Dioxide 29 mmol/L (22-29); Chloride 105 mmol/L (96-108); Creatinine Clr Calc Pharmacy 88.6; Estimated Glomerular Filt Rate > 60; Potassium 4.5 mmol/L (3.3-5.1); Sodium 140 mmol/L (135-145)
[2025-02-07] MEDS: 0.9 % Sodium Chloride Flush 3 ML SYRINGE IVFLUSH ×3 (09:30→20:07)
[2025-02-07] MEDS: oxyCODONE HCl Immed Release 5 MG TABLET PO ×2 (09:45→20:07)
[2025-02-07] MEDS: FORMOTEROL INHALE ×2 (11:24→19:34)
[2025-02-07] MEDS: GLYCOPYRROLATE INHALE ×2 (11:24→19:34)
[2025-02-07] MEDS: BUDESONIDE INHALE ×2 (11:24→19:34)
--- NOTE | 2025-02-07 12:19 | MHC.CM.PN ---
EMR reviewed and per MD rounds, pt is not medically cleared for discharge due to management of COPD exacerbation.
--- NOTE | 2025-02-07 14:06 | P.PNIM_ITS ---
Subjective Subjective Date of Service: 02/07/25 Interval History: breathing improving but short of breath with any exertion coughing thin sputum Review of Systems Review of Systems: Yes all other systems are reviewed and are negative Physical Exam 2 Vital Signs: Vital Signs: Last Vital Signs Temp 97.6 F 02/07/25 11:32 Pulse 94 02/07/25 11:59 Resp 18 02/07/25 11:41 BP 125/74 02/07/25 11:59 Pulse Ox 95 02/07/25 11:59 O2 Del Method BiPAP 02/07/25 11:32 O2 Flow Rate 2 02/07/25 07:31 BMI result Body Mass Index 40.0 Gen: in no acute distress HEENT: sclera anicteric, moist mucus membranes Neck: supple Lungs: diminished Heart: regular rate and rhythm, no murmurs Abd: soft, non-tender, non-distended, obese Ext: no edema Skin: warm/well-perfused Neuro: alert and oriented x3, no focal findings Psych: appropriate affect Objective Data Active Medications Acetaminophen (Acetaminophen 325 Mg Tablet) 975 mg PO Q6H PRN PRN Reason: Pain, Mild 1-3,fever,headache Acetaminophen/Butalbital/Caffeine (Butalb/Acetamin/Caff 50/325/40 Tablet) 1 tab PO DAILY MRX1 PRN PRN Reason: Migraine Headache Last Admin: 02/06/25 08:47 Dose: 1 tab Documented By: GARFIELD Albuterol Sulfate (Albuterol Sulfate 90 Mcg 8 Gm Inhaler) 2 puff INHALE Q4H PRN PRN Reason: Shortness Of Breath Or Wheezing Aripiprazole (Aripiprazole 5 Mg Tablet) 5 mg PO DAILY@06 [facility] Last Admin: 02/07/25 05:35 Dose: 5 mg Documented By: SHAKIRA Aspirin (Aspirin Enteric Coated 81 Mg Tablet.) 81 mg PO DAILY@1999 [facility] Last Admin: 02/06/25 20:59 Dose: 81 mg Documented By: SHAKIRA Atorvastatin Calcium (Atorvastatin Calcium 80 Mg Tablet) 80 mg PO DAILY@1999 [facility] Last Admin: 02/06/25 21:00 Dose: 80 mg Documented By: SHAKIRA Baclofen (Baclofen 20 Mg Tablet) 20 mg PO TID@0500,1199,1999 [facility] Last Admin: 02/07/25 11:25 Dose: 20 mg Documented By: JESSICA Benzonatate (Benzonatate 100 Mg Capsule) 100 mg PO TID PRN PRN Reason: Cough Calcium Carbonate (Calcium Carbonate 750 Mg Tab.Chew) 750 mg PO Q4H PRN PRN Reason: Heartburn Last Admin: 02/05/25 22:04 Dose: 750 mg Documented By: PHUC Calcium Carbonate/Cholecalciferol (Calcium + Vitamin D 250 Mg Tablet) 500 mg PO DAILY@1999 [facility] Last Admin: 02/06/25 20:59 Dose: 500 mg Documented By: SHAKIRA Duloxetine HCl (Duloxetine Hcl 60 Mg Capsule.) 60 mg PO BID@ [facility] Last Admin: 02/07/25 05:39 Dose: 60 mg Documented By: SHAKIRA Enoxaparin Sodium (Enoxaparin Sodium 40 Mg/0.4 Ml Syringe) 40 mg SUBCUT Q24H [facility] Last Admin: 02/07/25 09:31 Dose: 40 mg Documented By: JESSICA Gabapentin (Gabapentin 400 Mg Capsule) 1,200 mg PO TID@599,1199,1999 [facility] Last Admin: 02/07/25 11:25 Dose: 1,200 mg Documented By: JESSICA Doxycycline Hyclate 100 mg/ (Sodium Chloride) 250 mls @ 166.67 mls/hr IV Q12H [facility] Last Infusion: 02/07/25 07:16 Dose: Infused Documented By: SHAKIRA Levalbuterol HCl (Levalbuterol Hcl 1.25 Mg/3 Ml Vial.Neb) 1.25 mg INHALE RQ4H [facility] Last Admin: 02/07/25 11:37 Dose: 1.25 mg Documented By: WILL Lorazepam (Lorazepam 0.5 Mg Tablet) 0.5 mg PO DAILY PRN PRN Reason: Anxiety Last Admin: 02/07/25 12:01 Dose: 0.5 mg Documented By: CHARLIE Comments: per dr sarah santacruz to give now Lorazepam (Lorazepam 0.5 Mg Tablet) 0.5 mg PO BEDTIME@1999 [facility] Last Admin: 02/06/25 20:59 Dose: 0.5 mg Documented By: SHAKIRA Magnesium Hydroxide (Milk Of Magnesia 30 Ml Oral.Susp) 30 ml PO DAILY PRN PRN Reason: Constipation Magnesium Oxide (Magnesium Oxide 400 Mg Tablet) 400 mg PO DAILY [facility] Last Admin: 02/07/25 09:31 Dose: 400 mg Documented By: JESSICA Melatonin (Melatonin 3 Mg Tablet) 6 mg PO BEDTIME PRN PRN Reason: Insomnia Last Admin: 02/06/25 20:50 Dose: 6 mg Documented By: SHAKIRA Melatonin (Melatonin 3 Mg Tablet) 6 mg PO BEDTIME PRN PRN Reason: Insomnia Methylprednisolone Sodium Succinate (Methylprednisolone Sod Succ 40 Mg/Ml Vial) 40 mg IVPUSH BID [facility] Last Admin: 02/07/25 09:31 Dose: 40 mg Documented By: JESSICA Patient Own( Budesonide-Glycopyr- Formoterol [Breztri Aerosphere] 160-9-4. 8 Mc 2 inhalation INHALE RBID@0600,1800 [facility] Last Admin: 02/07/25 11:24 Dose: 2 inhalation Documented By: JESSICA Nystatin (Nystatin Powder 15 Gm Bottle) 1 appl TOPICAL BID [facility]; Protocol Last Admin: 02/07/25 09:51 Dose: 1 appl Documented By: JESSICA Omeprazole (Omeprazole 20 Mg Capsule.Dr) 20 mg PO DAILY@0630 [facility] Last Admin: 02/07/25 05:35 Dose: 20 mg Documented By: SHAKIRA Ondansetron HCl (Ondansetron Hcl 4 Mg/2 Ml Vial) 4 mg IVPUSH Q8H PRN PRN Reason: Nausea and Vomiting Oxcarbazepine (Oxcarbazepine 300 Mg Tablet) 300 mg PO BID@0600,1800 [facility] Last Admin: 02/07/25 05:39 Dose: 300 mg Documented By: SHAKIRA Oxycodone HCl (Oxycodone Hcl Immed Release 5 Mg Tablet) 5 mg PO Q6H PRN PRN Reason: Pain, Severe (Pain Scale 7-10) Last Admin: 02/07/25 09:45 Dose: 5 mg Documented By: JESSICA Polyethylene Glycol (Polyethylene Glycol 3350 17 Gm Powd.Pack) 17 gm PO DAILY PRN PRN Reason: Constipation Prazosin HCl (Prazosin Hcl 1 Mg Capsule) 2 mg PO DAILY@2000 [facility]; Protocol Last Admin: 02/06/25 20:48 Dose: 2 mg Documented By: SHAKIRA Roflumilast (Roflumilast 500 Mcg Tablet) 500 mcg PO DAILY@0600 [facility] Last Admin: 02/07/25 05:39 Dose: 500 mcg Documented By: SHAKIRA Sodium Chloride (0.9 % Sodium Chloride Flush 3 Ml Syringe) 3 ml IVFLUSH QSHIFT [facility] Last Admin: 02/07/25 09:30 Dose: 3 ml Documented By: JESSICA Sodium Chloride (Sodium Chloride 0.65 % Nasal 44 Ml Sprbtl) 1 spray NOSTRIL-B Q1H PRN PRN Reason: Congestion Last Admin: 02/06/25 18:27 Dose: 1 spray Documented By: GARFIELD Tramadol HCl (Tramadol Hcl 50 Mg Tablet) 50 mg PO Q6H PRN PRN Reason: Pain, Moderate(Pain Scale 4-6) Last Admin: 02/06/25 20:55 Dose: 50 mg Documented By: SHAKIRA Valsartan (Valsartan 40 Mg Tablet) 40 mg PO DAILY@0600 [facility]; Protocol Last Admin: 02/07/25 05:35 Dose: 40 mg Documented By: SHAKIRA Verapamil HCl (Verapamil Hcl 120 Mg Tablet) 120 mg PO BID@0600,1800 [facility]; Protocol Last Admin: 02/07/25 05:39 Dose: 120 mg Documented By: SHAKIRA Labs 02/07/25 06:50 02/07/25 06:50 Labs: Laboratory Results - last 24 hr 02/07/25 06:50 MCV 98.6 H MCH 31.1 MCHC 31.6 RDW 15.0 Plt Count 387 MPV 9.2 L Immature Gran % (Auto) 0.8 H Neut % (Auto) 82.9 H Lymph % (Auto) 9.5 L [place] % (Auto) 6.7 Eos % (Auto) 0.0 Baso % (Auto) 0.1 Lymph # (Auto) 1.0 L [place] # (Auto) 0.7 Eos # (Auto) 0.0 Baso # (Auto) 0.0 Abs Immat Gran (auto) 0.09 H Absolute Neuts (auto) 9.0 H Absolute Nucleated RBC 0.000 Nucleated RBC % (auto) 0.0 Anion Gap 11 L Estim Creat Clear Calc 88.6 Estimated GFR > 60 Random Glucose 141 H Calcium 9.2 D Microbiology Microbiology Results: Microbiology 02/05/25 06:25 Blood Culture - Preliminary Blood - Venous No growth after 48 hours. 02/05/25 06:15 Blood Culture - Preliminary Blood - Venous No growth after 48 hours. Assessment and Plan (1) Chronic lung disease: Status: Acute Plan d3, 60yo F with COPD on 1-3L/m home O2, HLD, hx CVA, nephrolithiasis, obesity, moderate , chronic pain on oxycodone, HTN admitted for COPD exacerbation acute/chronic hypoxic/hypercapneic resp failure due to acute COPD exacerbation - continue doxycycline, change IV to PO - decrease IV methylprednisolone - continue nebulizer treatments, roflumilast indeterminate troponin - flat, no ischemic changes nor symptoms chronic HFpEF - TTE 02/06: - The left ventricular systolic function is hyperdynamic. The visually estimated ejection fraction is >70%. - There is mild aortic valve stenosis HLD statin HTN - verapamil, losartan, prazosin trigeminal neuralgia - gabapentin, baclofen, lidocaine, oxcarbazpine chronic back pain - oxycodone mood disorder - lorazepam, duloxetine, aripiprazole hx CVA - ASA + atorvastatin morbid obesity - diet/exercise counseling VTE ppx - enoxaparin dispo - TBD; PT eval In my clinical judgment, the patient requires continued inpatient hospitalization for the following reasons: hypoxia Quality Stroke Does the patient have a stroke diagnosis?: No VTE Prior VTE?: No VTE Risk Level:: Medical - moderate - high VTE Device Contraindication: Treatment Not Indicated VTE Drug Contraindication: N/A - Med Ordered
[2025-02-07] MEDS: Calcium + Vitamin D 250 MG TABLET 500 MG PO (20:12)
[2025-02-07] MEDS: Aspirin Enteric Coated 81 MG TABLET.DR PO (20:12)
[2025-02-08] VITALS (13 sets, daily range): BP systolic 116–166; BP diastolic 61–76; PULSE 77–94; RESP 18–20; TEMP 35.6–36.6; O2SAT 95–99
[2025-02-08 07:38] LABS: MANUAL DIFF FLAG NO
[2025-02-08] MEDS: BUDESONIDE INHALE (07:48)
[2025-02-08] MEDS: GLYCOPYRROLATE INHALE (07:48)
[2025-02-08] MEDS: FORMOTEROL INHALE (07:48)
[2025-02-08 07:56] LABS: Hematocrit 37.4 % (37.0-47.0); Hemoglobin 11.9 g/dl (12.0-16.0); Imm Gran Abs Auto 0.12 X10*3/uL (0.00-0.03); Imm Gran Pct Auto 1.1 % (0.0-0.4); Lymphocytes Absolute Auto 2.6 X10*3/uL (1.2-4.9); Mean Corpuscular HGB Conc 31.8 g/dl (31.0-35.0); Mean Corpuscular Hemoglobin 31.2 pg (27.0-33.0); Mean Corpuscular Volume 98.2 fL (80.0-98.0); NRBC Abs Auto 0.000 X10*3/uL (0.0-0.012); NRBC Pct Auto 0.0 /100WBC (0.0-0.2); Platelet Count 416 X10*3/uL (160-400); Red Blood Count 3.81 X10*6/uL (4.20-5.50); White Blood Count 10.5 X10*3/uL (4.8-10.8)
[2025-02-08 08:00] LABS: Anion Gap 10 (12-20); Blood Urea Nitrogen 14 mg/dL (9-16); Calcium 9.6 mg/dL (8.4-10.2); Carbon Dioxide 33 mmol/L (22-29); Chloride 102 mmol/L (96-108); Creatinine Clr Calc Pharmacy 89.9; Estimated Glomerular Filt Rate > 60; Potassium 3.8 mmol/L (3.3-5.1); Sodium 141 mmol/L (135-145)
[2025-02-08] MEDS: 0.9 % Sodium Chloride Flush 3 ML SYRINGE IVFLUSH ×3 (08:49→22:06)
[2025-02-08] MEDS: oxyCODONE HCl Immed Release 5 MG TABLET PO ×2 (08:53→17:34)
--- NOTE | 2025-02-08 11:01 | HO.PM.IMPN ---
Subjective Subjective Date of Service: 02/08/25 Interval History: dyspnea improving, but still very weak with ambulation Review of Systems Review of Systems: Yes all other systems are reviewed and are negative Physical Exam Vital Signs: Vital Signs: Last Vital Signs Temp 97.8 F 02/08/25 07:53 Pulse 77 02/08/25 07:53 Resp 18 02/08/25 07:53 BP 116/61 02/08/25 07:53 Pulse Ox 97 02/08/25 07:53 O2 Del Method Room Air 02/08/25 07:53 O2 Flow Rate 2 02/08/25 04:00 BMI result Body Mass Index 40.0 Gen: in no acute distress HEENT: sclera anicteric, moist mucus membranes Neck: supple Lungs: diminished Heart: regular rate and rhythm, no murmurs Abd: soft, non-tender, non-distended, obese Ext: no edema Skin: warm/well-perfused Neuro: alert and oriented x3, no focal findings Psych: appropriate affect Objective Data Active Medications Acetaminophen (Acetaminophen 325 Mg Tablet) 975 mg PO Q6H PRN PRN Reason: Pain, Mild 1-3,fever,headache Acetaminophen/Butalbital/Caffeine (Butalb/Acetamin/Caff 50/325/40 Tablet) 1 tab PO DAILY MRX1 PRN PRN Reason: Migraine Headache Last Admin: 02/06/25 08:47 Dose: 1 tab Documented By: GARFIELD Albuterol Sulfate (Albuterol Sulfate 90 Mcg 8 Gm Inhaler) 2 puff INHALE Q4H PRN PRN Reason: Shortness Of Breath Or Wheezing Aripiprazole (Aripiprazole 5 Mg Tablet) 5 mg PO DAILY@06 [facility] Last Admin: 02/08/25 05:46 Dose: 5 mg Documented By: CULLEN Aspirin (Aspirin Enteric Coated 81 Mg Tablet.) 81 mg PO DAILY@1999 [facility] Last Admin: 02/07/25 20:12 Dose: 81 mg Documented By: CULLEN Atorvastatin Calcium (Atorvastatin Calcium 80 Mg Tablet) 80 mg PO DAILY@1999 [facility] Last Admin: 02/07/25 20:12 Dose: 80 mg Documented By: CULLEN Baclofen (Baclofen 20 Mg Tablet) 20 mg PO TID@0600,1199,1999 [facility] Benzonatate (Benzonatate 100 Mg Capsule) 100 mg PO TID PRN PRN Reason: Cough Calcium Carbonate (Calcium Carbonate 750 Mg Tab.Chew) 750 mg PO Q4H PRN PRN Reason: Heartburn Last Admin: 02/05/25 22:04 Dose: 750 mg Documented By: PHUC Calcium Carbonate/Cholecalciferol (Calcium + Vitamin D 250 Mg Tablet) 500 mg PO DAILY@1999 [facility] Last Admin: 02/07/25 20:12 Dose: 500 mg Documented By: CULLEN Doxycycline Monohydrate (Doxycycline Monohydrate 100 Mg Capsule) 100 mg PO Q12H [facility] Last Admin: 02/08/25 05:48 Dose: 100 mg Documented By: CULLEN Duloxetine HCl (Duloxetine Hcl 60 Mg Capsule.) 60 mg PO BID@ [facility] Last Admin: 02/08/25 05:45 Dose: 60 mg Documented By: CULLEN Enoxaparin Sodium (Enoxaparin Sodium 40 Mg/0.4 Ml Syringe) 40 mg SUBCUT Q24H [facility] Last Admin: 02/08/25 06:29 Dose: 40 mg Documented By: CULLEN Gabapentin (Gabapentin 400 Mg Capsule) 1,200 mg PO TID@599,1199,1999 [facility] Last Admin: 02/08/25 05:45 Dose: 1,200 mg Documented By: CULLEN Levalbuterol HCl (Levalbuterol Hcl 1.25 Mg/3 Ml Vial.Neb) 1.25 mg INHALE RQ4H [facility] Last Admin: 02/08/25 07:48 Dose: 1.25 mg Documented By: WILL Lorazepam (Lorazepam 0.5 Mg Tablet) 0.5 mg PO DAILY PRN PRN Reason: Anxiety Last Admin: 02/07/25 12:01 Dose: 0.5 mg Documented By: CHARLIE Comments: per dr sarah santacruz to give now Lorazepam (Lorazepam 0.5 Mg Tablet) 0.5 mg PO BEDTIME@1999 [facility] Last Admin: 02/07/25 20:13 Dose: 0.5 mg Documented By: CULLEN Magnesium Hydroxide (Milk Of Magnesia 30 Ml Oral.Susp) 30 ml PO DAILY PRN PRN Reason: Constipation Magnesium Oxide (Magnesium Oxide 400 Mg Tablet) 400 mg PO DAILY [facility] Last Admin: 02/08/25 08:49 Dose: 400 mg Documented By: JESSICA Melatonin (Melatonin 3 Mg Tablet) 6 mg PO BEDTIME PRN PRN Reason: Insomnia Last Admin: 02/06/25 20:50 Dose: 6 mg Documented By: SHAKIRA Melatonin (Melatonin 3 Mg Tablet) 6 mg PO BEDTIME PRN PRN Reason: Insomnia Patient Own( Budesonide-Glycopyr- Formoterol [Breztri Aerosphere] 160-9-4. 8 Mc 2 inhalation INHALE RBID@ [facility] Last Admin: 02/08/25 07:48 Dose: 2 inhalation Documented By: WILL Nystatin (Nystatin Powder 15 Gm Bottle) 1 appl TOPICAL BID [facility]; Protocol Last Admin: 02/08/25 08:59 Dose: Not Given Documented By: JESSICA Non-Admin Reason: Patient Refused Omeprazole (Omeprazole 20 Mg Capsule.) 20 mg PO DAILY@629 [facility] Last Admin: 02/08/25 05:45 Dose: 20 mg Documented By: CULLEN Ondansetron HCl (Ondansetron Hcl 4 Mg/2 Ml Vial) 4 mg IVPUSH Q8H PRN PRN Reason: Nausea and Vomiting Oxcarbazepine (Oxcarbazepine 300 Mg Tablet) 300 mg PO BID@ [facility] Last Admin: 02/08/25 06:28 Dose: 300 mg Documented By: CULLEN Oxycodone HCl (Oxycodone Hcl Immed Release 5 Mg Tablet) 5 mg PO Q6H PRN PRN Reason: Pain, Severe (Pain Scale 7-10) Last Admin: 02/08/25 08:53 Dose: 5 mg Documented By: JESSICA Polyethylene Glycol (Polyethylene Glycol 3350 17 Gm Powd.Pack) 17 gm PO DAILY PRN PRN Reason: Constipation Prazosin HCl (Prazosin Hcl 1 Mg Capsule) 2 mg PO DAILY@1999 [facility]; Protocol Last Admin: 02/07/25 20:13 Dose: 2 mg Documented By: CULLEN Prednisone (Prednisone 20 Mg Tablet) 40 mg PO DAILY [facility] Roflumilast (Roflumilast 500 Mcg Tablet) 500 mcg PO DAILY@06 [facility] Last Admin: 02/08/25 05:46 Dose: 500 mcg Documented By: CULLEN Sodium Chloride (0.9 % Sodium Chloride Flush 3 Ml Syringe) 3 ml IVFLUSH QSHIFT [facility] Last Admin: 02/08/25 08:49 Dose: 3 ml Documented By: JESSICA Sodium Chloride (Sodium Chloride 0.65 % Nasal 44 Ml Sprbtl) 1 spray NOSTRIL-B Q1H PRN PRN Reason: Congestion Last Admin: 02/06/25 18:27 Dose: 1 spray Documented By: GARFIELD Tramadol HCl (Tramadol Hcl 50 Mg Tablet) 50 mg PO Q6H PRN PRN Reason: Pain, Moderate(Pain Scale 4-6) Last Admin: 02/06/25 20:55 Dose: 50 mg Documented By: SHAKIRA Valsartan (Valsartan 40 Mg Tablet) 40 mg PO DAILY@0600 [facility]; Protocol Last Admin: 02/08/25 05:48 Dose: 40 mg Documented By: CULLEN Verapamil HCl (Verapamil Hcl 120 Mg Tablet) 120 mg PO BID@0600,1800 [facility]; Protocol Last Admin: 02/08/25 05:46 Dose: 120 mg Documented By: CULLEN Labs 02/08/25 07:01 02/08/25 07:01 Labs: Laboratory Results - last 24 hr 02/08/25 07:01 MCV 98.2 H MCH 31.2 MCHC 31.8 RDW 14.9 Plt Count 416 H MPV 9.2 L Immature Gran % (Auto) 1.1 H Neut % (Auto) 64.0 Lymph % (Auto) 25.2 [place] % (Auto) 8.4 Eos % (Auto) 1.0 Baso % (Auto) 0.3 Lymph # (Auto) 2.6 [place] # (Auto) 0.9 Eos # (Auto) 0.1 Baso # (Auto) 0.0 Abs Immat Gran (auto) 0.12 H Absolute Neuts (auto) 6.7 Absolute Nucleated RBC 0.000 Nucleated RBC % (auto) 0.0 Anion Gap 10 L Estim Creat Clear Calc 89.9 Estimated GFR > 60 Random Glucose 111 Calcium 9.6 Microbiology Microbiology Results: Microbiology 02/05/25 06:25 Blood Culture - Preliminary Blood - Venous No growth after 48 hours. 02/05/25 06:15 Blood Culture - Preliminary Blood - Venous No growth after 48 hours. Assessment and Plan (1) Chronic lung disease: Status: Acute Plan d4, 60yo F with COPD on 1-3L/m home O2, HLD, hx CVA, nephrolithiasis, obesity, moderate , chronic pain on oxycodone, HTN admitted for COPD exacerbation acute/chronic hypoxic/hypercapneic resp failure due to acute COPD exacerbation - continue doxycycline - change IV methylprednisolone to PO prednisone - continue nebulizer treatments, roflumilast indeterminate troponin - flat, no ischemic changes nor symptoms chronic HFpEF - TTE 02/06: - The left ventricular systolic function is hyperdynamic. The visually estimated ejection fraction is >70%. - There is mild aortic valve stenosis HLD - statin HTN - verapamil, losartan, prazosin trigeminal neuralgia - gabapentin, baclofen, lidocaine, oxcarbazpine chronic back pain - oxycodone mood disorder - lorazepam, duloxetine, aripiprazole hx CVA - ASA + atorvastatin morbid obesity - diet/exercise counseling VTE ppx - enoxaparin dispo - declines STR/IPR, anticipate home with VNA possibly tomorrow if continues to improve In my clinical judgment, the patient requires continued inpatient hospitalization for the following reasons: resp failure Total time managing care of this patient today: 35 minutes. Quality Stroke Does the patient have a stroke diagnosis?: No VTE Prior VTE?: No VTE Risk Level:: Medical - moderate - high VTE Device Contraindication: Treatment Not Indicated VTE Drug Contraindication: N/A - Med Ordered
[2025-02-08] MEDS: Albuterol Sulfate 90 MCG 8 GM INHALER 2 PUFF INHALE (13:46)
--- NOTE | 2025-02-08 15:12 | MHC.CM.PN ---
Discharge is anticipated for tomorrow. PT eval recommendation is home with services. [facility] has been sent clinical info including PT eval. DP home with resumption of [facility]
--- NOTE | 2025-02-08 19:09 | PC.NURSE ---
patient refusing to take scheduled trileptal at this time, request she takes it with the rest of her 8pm meds, communicated with oncoming nightshift RN.
[2025-02-08] MEDS: Calcium + Vitamin D 250 MG TABLET 500 MG PO (20:35)
[2025-02-08] MEDS: Aspirin Enteric Coated 81 MG TABLET.DR PO (20:35)
[2025-02-09 04:00] VITALS: BP 152/72; PULSE 72; RESP 16; TEMP 36.7; O2SAT 93
[2025-02-09] MEDS: oxyCODONE HCl Immed Release 5 MG TABLET PO (05:23)
--- NOTE | 2025-02-09 07:14 | P.CDIM_ITS ---
PROVIDER RESPONSE TEXT: To clarify, the appropriate diagnosis supported by the clinical indicators: Sepsis is/was present: due to COPD not pneumonia QUERY TEXT: PHYSICIAN'S DOCUMENTATION REQUEST Date of Query: 02/08/2025 07:58 AM EDT Patient Name: Zulma Alves Admit Date: 02/05/2025 Dear Saray Redman MD, A review of the medical record indicates additional documentation may be needed. Please review below and update the documentation accordingly. The patient's infectious clinical indicators include: H&P dated 02/05/25 - Acute on chronic hypoxic respiratory failure with hypercapnia and Sepsis secondary to acute COPD exacerbation. WBC 14.3 Tachycardic and tachypneic, LA 2.0, not severe sepsis. Doxycycline and Ceftriaxone started in ED. Event note dated 02/05/25 - Sepsis secondary to COPD exacerbation. Sepsis Systemic manifestations of infection, with 2 or more SIRS criteria which include: Fever > 100.4?F or hypothermia < 96.8?F Leukocytosis - WBC > 12,000 or leukopenia, WBC < 4,000, or > 10% bands Tachycardia- > 90 beats/minute Tachypnea- RR > 20 breaths/minute or PaCO2 < 32mmHg Consistency and clarity of a principal diagnosis noted within the medical record: Sepsis is/was present suspected, possible, probable, cannot rule out etc. After study Sepsis has been ruled out Other (explain) Clinically unable to determine (explain) Thank you, Hafsa Min, CCS, CDIS Use of terms such as suspected, likely, concern for, or probable (associated with a specific diagnosis that is being evaluated, monitored, or treated as if it exists) are acceptable and can be coded in the inpatient setting, when documented at the time of discharge. Please use your independent medical judgment in providing your response. THIS QUERY IS PART OF THE PERMANENT MEDICAL RECORD
--- NOTE | 2025-02-09 07:16 | PM.DS ---
DS: Providers Provider Date of Service: 02/09/25 Date of admission: 02/05/25 06:56 Date of discharge: 02/09/25 Primary care physician: Antione Segura PA-C DS: Diagnosis Discharge Diagnosis (1) Chronic lung disease: Status: Acute (2) Acute on chronic respiratory failure with hypoxia and hypercapnia: Status: Acute (3) Acute exacerbation of COPD with asthma: Status: Acute DS: Summary Hospital Course Hospital Course: From the history and physical by the admitting hospitalist, ORESTES Fried, 02/05/25: Patient is a 60-year-old female with a past medical history significant for COPD on home oxygen (1-3 L/min), hyperlipidemia, nephrolithiasis, CVA, obesity, moderate , chronic pain in and oxycodone, essential hypertension and multiple hospitalizations due to COPD exacerbation who presented to the ED due to shortness of breath and dyspnea. When she called EMS she was saturating in the low 90s. The patient was given DuoNeb and Solu-Medrol by EMS with moderate improvement. She was seen here 01/21 with similar symptoms. She is denying any fever at home, no chills but is having a productive cough with yellow sputum. She feels this is similar to previous COPD exacerbations. 60yo F with COPD/asthma on 1-3L/m home O2, HLD, hx CVA, nephrolithiasis, obesity, moderate , chronic pain on oxycodone, HTN admitted for COPD/asthma overlap exacerbation treated with doxycycline and IV methylprednisolone along with nebulizer treatments. She improved symptomatically and was discharged on prednisone taper and 1 more day of doxycycline and will follow up with her panel beater within 2 weeks. Troponin flat/indeterminate without ischemic EKG changes nor anginal symptoms; TTE 02/06 showed hyperdynamic LVEF, mild aortic stenosis. She was discharged home with VNA services, having declined placement at inpatient pulmonary rehabilitation/short-term rehabilitation. Time Attestation Discharge Coordination Time (in mins): 35 Quality: Safe Use of Opioids Does Pt have an Active Cancer Diagnosis on the Problem List?: No Quality: Stroke Does the patient have a stroke diagnosis?: No Physical Exam Vital Signs: Vital Signs: Last Vital Signs Temp 98.1 F 02/09/25 04:00 Pulse 72 02/09/25 04:00 Resp 16 02/09/25 04:00 BP 152/72 H 02/09/25 04:00 Pulse Ox 93 02/09/25 04:00 O2 Del Method Nasal Cannula 02/09/25 04:00 O2 Flow Rate 2 02/09/25 04:00 BMI result Body Mass Index 40.0 Gen: in no acute distress HEENT: sclera anicteric, moist mucus membranes Neck: supple Lungs: diminished, no adventitious sounds Heart: regular rate and rhythm, no murmurs Abd: soft, non-tender, non-distended, obese Ext: no edema Skin: warm/well-perfused Neuro: alert and oriented x3, no focal findings Psych: appropriate affect DS: Data Data Completed and Pending Completed studies during hospitalization [Text1]: Laboratory Results WBC 10.5 X10*3/uL (4.8-10.8) 02/08/25 07:01 RBC 3.81 X10*6/uL (4.20-5.50) L 02/08/25 07:01 Hgb 11.9 g/dl (12.0-16.0) L 02/08/25 07:01 Hct 37.4 % (37.0-47.0) 02/08/25 07:01 MCV 98.2 fL (80.0-98.0) H 02/08/25 07:01 MCH 31.2 pg (27.0-33.0) 02/08/25 07:01 MCHC 31.8 g/dl (31.0-35.0) 02/08/25 07:01 RDW 14.9 % (11.0-16.0) 02/08/25 07:01 Plt Count 416 X10*3/uL (160-400) H 02/08/25 07:01 MPV 9.2 fL (9.4-12.3) L 02/08/25 07:01 Immature Gran % (Auto) 1.1 % (0.0-0.4) H 02/08/25 07:01 Neut % (Auto) 64.0 % (45-73) 02/08/25 07:01 Lymph % (Auto) 25.2 % (20-40) 02/08/25 07:01 [place] % (Auto) 8.4 % (2-11) 02/08/25 07:01 Eos % (Auto) 1.0 % (0-4) 02/08/25 07:01 Baso % (Auto) 0.3 % (0-2) 02/08/25 07:01 Lymph # (Auto) 2.6 X10*3/uL (1.2-4.9) 02/08/25 07:01 [place] # (Auto) 0.9 X10*3/uL (0.1-1.2) 02/08/25 07:01 Eos # (Auto) 0.1 X10*3/uL (0.0-0.4) 02/08/25 07:01 Baso # (Auto) 0.0 X10*3/uL (0.0-0.2) 02/08/25 07:01 Abs Immat Gran (auto) 0.12 X10*3/uL (0.00-0.03) H 02/08/25 07:01 Absolute Neuts (auto) 6.7 x10*3/uL (2.0-8.3) 02/08/25 07:01 Absolute Nucleated RBC 0.000 X10*3/uL (0.0-0.012) 02/08/25 07:01 Nucleated RBC % (auto) 0.0 /100WBC (0.0-0.2) 02/08/25 07:01 VBG pH 7.42 (7.32-7.43) 02/05/25 06:13 VBG pCO2 54 mmHg 02/05/25 06:13 VBG pO2 98 mmHg 02/05/25 06:13 VBG HCO3 35 mmol/L (22-26) H 02/05/25 06:13 VBG O2 Saturation 99.0 % 02/05/25 06:13 VBG Base Excess 9.4 mmol/L 02/05/25 06:13 Sodium 141 mmol/L (135-145) 02/08/25 07:01 Potassium 3.8 mmol/L (3.3-5.1) 02/08/25 07:01 Chloride 102 mmol/L (96-108) 02/08/25 07:01 Carbon Dioxide 33 mmol/L (22-29) H 02/08/25 07:01 Anion Gap 10 (12-20) L 02/08/25 07:01 BUN 14 mg/dL (9-16) 02/08/25 07:01 Creatinine 0.66 mg/dL (0.5-1.4) 02/08/25 07:01 Estim Creat Clear Calc 89.9 02/08/25 07:01 Estimated GFR > 60 02/08/25 07:01 Random Glucose 111 mg/dL (60-115) 02/08/25 07:01 Lactic Acid 2.0 mmol/L (0.5-2.0) 02/05/25 06:15 Calcium 9.6 mg/dL (8.4-10.2) 02/08/25 07:01 Magnesium 1.9 mg/dL (1.6-2.6) 02/05/25 06:04 Total Bilirubin 0.3 mg/dL (0.0-1.0) 02/05/25 06:04 AST 24 U/L (5-31) 02/05/25 06:04 ALT 15 U/L (0-31) 02/05/25 06:04 Alkaline Phosphatase 68 U/L (39-117) 02/05/25 06:04 Troponin I High Sens 58.3 ng/L (<3.5-17.0) H* 02/05/25 09:21 B-Natriuretic Peptide 45 pg/mL (<100) 02/05/25 06:04 Total Protein 6.8 g/dL (6.5-8.0) 02/05/25 06:04 Albumin 4.1 g/dL (3.5-5.0) 02/05/25 06:04 Influenza Type A (PCR) NEGATIVE (Negative) 02/05/25 06:04 Influenza Type B (PCR) NEGATIVE (Negative) 02/05/25 06:04 RSV RNA Qual (PCR) NEGATIVE (Negative) 02/05/25 06:04 SARS-CoV-2 RNA (RT-PCR) NEGATIVE (Negative) 02/05/25 06:04 Discharge Plan Discharge Anticipated Discharge Date/Time: 02/09/25 07:10 Patient Disposition: Home Health Service Discharge Diagnosis: COPD Referrals: Antione Segura PA-C [Primary Care Provider, Internal Medicine] - 1 Week Denys Henriquez MD [Physician, Pulmonology] - 2 Weeks Discharge Medications: New benzonatate 100 mg Capsule 100 mg PO TID PRN (Reason: Cough) Qty: 30 0RF doxycycline monohydrate 100 mg Capsule 100 mg PO Q12H Qty: 2 0RF nystatin [Nyamyc] 100,000 unit/gram Powder 1 appl topical BID Qty: 60 0RF Protocol: Apply to: Apply to: below breasts prednisone 10 mg tablet See Rx Instructions .ROUTE .COMPLEX Qty: 42 0RF Rx Instructions: 40 mg daily x 4 days then 30 mg daily x 4 days then 20 mg daily x 4 days then 10 mg daily x 4 days then 5 mg daily x 4 days Continued ipratropium-albuterol 0.5 mg-3 mg(2.5 mg base)/3 mL solution for nebulization 3 ml inhalation Q4H PRN (Reason: for dyspnea) Qty: 180 11RF baclofen 20 mg tablet 20 mg PO TID@0500,1200,2000 aripiprazole [Abilify] 5 mg tablet 5 mg PO DAILY@0600 oxcarbazepine 300 mg tablet 300 mg PO BID@0600,1800 atorvastatin 80 mg tablet 80 mg PO DAILY@2000 xhtvjhyprz-pvgcdtzyzazyc-aqmc 50-325-40 mg tablet 1 tab PO DAILY MRX1 PRN (Reason: Migraine Headache) hyoscyamine sulfate 0.125 mg tablet 0.25 mg PO Q6H PRN (Reason: Abdominal Discomfort) gabapentin 300 mg capsule 1,200 mg PO TID@0600,1200,2000 duloxetine 60 mg capsule,delayed release(DR/EC) 60 mg PO BID@0600,2000 (DME) nebulizer and compressor Device See Rx Instructions .Route Qty: 1 0RF Rx Instructions: As directed albuterol sulfate 90 mcg/actuation HFA aerosol inhaler 2 puff inhalation Q4H PRN (Reason: Shortness Of Breath Or Wheezing) aspirin 81 mg tablet,delayed release (DR/EC) 81 mg PO DAILY@2000 omeprazole 20 mg Capsule,Delayed Release(Dr/Ec) 20 mg PO DAILY@0630 Qty: 0 0RF oxycodone 5 mg tablet 5 mg PO BID PRN (Reason: Severe Pain (Scale Score 7-10)) Qty: 10 0RF polyethylene glycol 3350 [Miralax] 17 gram/dose Powder 17 g PO DAILY PRN (Reason: Constipation) lidocaine 4 % Gel 1 appl TOPICAL TID PRN (Reason: Pain) lorazepam 0.5 mg tablet 0.5 mg PO BEDTIME@1999 [facility] Aerosphere 160-9-4.8 mcg/actuation HFA aerosol inhaler 2 inh inhalation BID@0600,1800 lorazepam 0.5 mg tablet 0.5 mg PO DAILY PRN (Reason: Anxiety) prednisone 10 mg tablet See Taper PO DAILY Taper: Prednisone 20 mg daily for 1 Day and 0 Hour 10 mg daily for 2 Days and 0 Hour Rx Instructions: PO daily; Take 5 tabs x 3 days, then 4 tabs x 3 days, then 3 tabs x 3 days, then 2 tabs daily x 3 days, then 1 tab x 3 days to complete. verapamil 120 mg tablet 120 mg PO BID@0600,1800 valsartan 40 mg tablet 40 mg PO DAILY@0600 Protocol: Hold for SBP< HOLD for SBP < : 90 roflumilast [Daliresp] 500 mcg tablet 500 mcg PO DAILY@0600 calcium carbonate-vitamin D3 600 mg-5 mcg (200 unit) tablet 1 tab PO DAILY@1999 prazosin 2 mg capsule 2 mg PO DAILY@1999 (DME) Oxygen Home Use Kit See Rx Instructions .Route Rx Instructions: As directed Discharge Orders: Discharge Order (Routine); Ordered 02/09/25 Ordered By: Saray Redman Diet: Advance to usual diet Activity on Discharge: As tolerated Stand Alone Forms: Patient Portal Discharge page Print Language: Vietnamese Care Plan Goals: lung health Health Concerns: COPD exacerbation Plan of Treatment: prednisone 10 mg tabs, taper as follows: 40 mg (4 tabs) daily x 4 days, then 30 mg (3 tabs) daily x 4 days, then 20 mg (2 tabs) daily x 4 days, then 10 mg (1 tab) daily x 4 days, then 5 mg (half tab) daily x 4 days doxycycline 100 mg twice daily for 1 more day follow up with Dr Henriquez in 2 weeks take benzonatate as needed for cough Please follow up with your primary care doctor within 1 week. Return to the hospital if you experience recurrent or worsening symptoms. Assessment: See Discharge Summary.
[2025-02-09 07:48] VITALS: PULSE 72; RESP 18
[2025-02-09 08:05] VITALS: BP 118/69; PULSE 87; RESP 20; TEMP 36.1; O2SAT 97
[2025-02-09] MEDS: 0.9 % Sodium Chloride Flush 3 ML SYRINGE IVFLUSH (08:38)
--- NOTE | 2025-02-09 09:22 | MHC.CM.PN ---
Patient is discharged to home today. Alex ROCHA will resume services. All discharge information has been sent to the agency. She has arranged for her to provide transportation home.
--- NOTE | 2025-02-09 14:21 | P.F2F_ITS ---
Service Date Service Date: 02/09/25 Encounter Date of encounter: 02/09/25 Reasons for Services Signs and symptoms assessed: attach PT evaluation Reason for residential: medication management and medication treatment Reason for physical therapy: home safety and mobility, therapeutic exercises, gait/transfer training, assess need for DME, ADL training and energy conservation MD Overseeing Care: Antione Segura Homebound: Leaving the home is medically contraindicated at this time without the asist of a device and/or another person due th the listed conditions above and below. Reason homebound: shortness of breath with minimal effort and weakness related to hospital stay Certification: Based on the above findings, I certify that this patient is confined to the home and needs intermittent residential care, physical therapy and/or speech therapy, or continues to need occupational therapy. The patient is under my care, and I have initiated the establishment of the plan of care. The patient will be followed by a physician who will periodically review the plan of care. Time Spent With Patient Time: Total time managing care of this patient today ____ minutes.
== END 2025-02-09 10:00 | disposition home health service (06) | DRG 720 ==
LOC: HO.ED 06:57 → HO.EDOVER 07:01 → HO.IMC 07:50 → HO.S3 02-08 08:48
PROVIDERS: Physician Assistant; Admitting Provider Internal Medicine; Emergency Provider Emergency Medicine; PCP Physician Assistant Surgical; Visit Provider Family Medicine
DX: A41.9 Sepsis, unspecified organism (principal); J96.21 Acute and chronic respiratory failure with hypoxia; I50.32 Chronic diastolic (congestive) heart failure; Z99.81 Dependence on supplemental oxygen; J44.1 Chronic obstructive pulmonary disease with (acute) exacerbation; J96.22 Acute and chronic respiratory failure with hypercapnia; E78.5 Hyperlipidemia, unspecified; M54.9 Dorsalgia, unspecified; E66.813 Obesity, class 3; Z71.3 Dietary counseling and surveillance; F39 Unspecified mood [affective] disorder; J45.901 Unspecified asthma with (acute) exacerbation; Z86.73 Personal history of transient ischemic attack (TIA), and cerebral infarction without residual deficits; Z68.41 Body mass index [BMI] 40.0-44.9, adult; G89.29 Other chronic pain; G50.0 Trigeminal neuralgia; I35.0 Nonrheumatic aortic (valve) stenosis; Z20.822 Contact with and (suspected) exposure to COVID-19; Z87.891 Personal history of nicotine dependence; Z79.82 Long term (current) use of aspirin; Z79.899 Other long term (current) drug therapy
CPT/HCPCS: 36415; 71045; 80048; 80053; 82803; 83605; 83735; 83880; 84484; 85025; 87040; 87637; 93005; 93306; 94640; 97162; 99285; 99499; J0131; J0696; J1271; J1650; J2919; J3475

== ENCOUNTER → 2025-02-05 05:53 | Outpatient (BNV) | payer BC, SELFPAY | PROVIDERS: Admitting Provider Internal Medicine; Emergency Provider Emergency Medicine; PCP Physician Assistant Surgical; Visit Provider Radiology Diagnostic Radiology | DX: R06.00 Dyspnea, unspecified (principal) | CPT/HCPCS: 71045 ==

== ENCOUNTER → 2025-02-05 05:55 | Outpatient (BNV) | payer BC, SELFPAY | PROVIDERS: Admitting Provider Internal Medicine; Emergency Provider Emergency Medicine; PCP Physician Assistant Surgical; Visit Provider Internal Medicine | DX: R06.02 Shortness of breath (principal) | CPT/HCPCS: 93010 ==

== ENCOUNTER 2025-02-05 06:56 | Outpatient (BNV) | payer BC, SELFPAY | END 2025-02-06 15:00 | PROVIDERS: Admitting Provider Internal Medicine; Emergency Provider Emergency Medicine; PCP Physician Assistant Surgical; Visit Provider Internal Medicine | DX: I51.89 Other ill-defined heart diseases (principal) | CPT/HCPCS: 93306 ==

== ENCOUNTER → 2025-02-05 06:56 | Outpatient (BNV) | payer BC, SELFPAY | PROVIDERS: Admitting Provider Internal Medicine; Emergency Provider Emergency Medicine; Visit Provider Physician Assistant | DX: J98.4 Other disorders of lung (principal) | CPT/HCPCS: 99232 ==

== ENCOUNTER 2025-02-14 10:22 | Outpatient (REF) | payer BC, SELFPAY ==
--- OUTSIDE RECORDS SUMMARY | 2025-02-12 12:30 | XMS_ITS | Encounter Summary ---
Author Organization [facility] Address [address] [place] [address] Phone Care Team Providers Care Tow Mate Name Role Phone Jn Cardoza MD Unavailable Denys Henriquez MD Unavailable [phone] Antione Segura PA-C Primary Care Provider Rhett Cortez MD Unavailable Reason for Visit * Auth/Cert (Routine) Specialty Diagnoses / Procedures Referred By Dary smith Referred To Contact Referral ID Status Reason Start Date Expiration Date Visits Re quested Visits Authorized [id number] 1 1 Encounter Details Date Type Department Care Team (Late st Contact Info) Description 02/12/2025 12:30 PM EDT Home Care Visit [facility] [address] [place] [phone] Shakira Hand, HUA [address] [place] [address] [email or web address] SN OASIS RESUMPTION OF CARE (VERONIKA) Social [...] high school, GED, job training, learning the Barbadian language, technical skills, or developing parenting skills)? [...] Care Team (Late st Contact Info) Description 02/14/2025 1:30 PM EDT Home Care Visit [facility] [address] [place], [place] [phone] Shakira Hand RN [address] [place], [place] [phone] 02/15/2025 9:00 AM EDT Office Visit [facility] [place] 40 [place] [address] Antione Segura PA-C 40 [place] [address] [email or web address] 02/21/2025 1:00 AM EDT Appointment [facility] [address] [place], [place] [phone] Shakira Hand RN [address] [place], [place] [phone] 04/17/2025 1:00 PM EST [facility] Visit [facility] 15 [place] [address] Brittnee Vigil MD 75 [place] [address] 06/25/2025 9:30 AM EST Telemedicine [facility] Neurology [address] [place] [address] Jn Cardoza MD 22 [facility], 2nd [place] [address] [email or web address] documented as of this encounter Visit Diagnoses Not on filedocumented in this encounter Additional Health Concerns Assessment Noted Time PHQ-9 Depression Total Score: 15 025 9:44 AM EDT PHQ-2 Depression Total Score: 4 02/01/20 25 9:44 AM EDT documented as of this encounter Home Health Visit - Care Plan Visit Details Visit Type -SN OASIS RESUMPT ION OF CARE Discipline -Shelter Problems Problem Description Start Date Status Goals Interve ntions HH - Medication Management Disciplines: All Active Home Health Disciplines, Shelter 12/27/2024 Active 1 goal linked to scheduled/document [...] related to medication errors and/or interactions Completed - Complete medication review every visit and medication reconciliation as indicated. Pharmacy information: Problem: - Medication Management Goal: - Safe medication management, avoid unnecessary harm related to medication errors and/or interactions Completed HH - Prefill or setup medications as follows: Description: SN TO ASSIST PATIENT IN SETTING UP PILL ORGANIZER WEEKLY Problem:HH - Medication Management Completed HH - Assess medication compliance Problem: - Medication Management Completed HH - Focus of care, teaching completed and plan for next visit Problem: - Focus of Care and Teaching Goal: - Communication and collaboration to achieve patient [...] PREDNISONE TAPER. WILL BE FOLLOWING UP HER CALL CENTER RECRUITER WITHN T COUPLE WEEKS AND PCP THIS WEDNESDAY Instruction Provided to: patient Response to Instruction/Teaching: Is partially able to teach back topics as evidenced by NEEDS RIENFORCEMENT. Plan for Next Visit Specific Focus & Education Needed: MEDICATION MANAGEMENT, CVP, RESP, O2, COPD MANAGEMENT New Orders: Updated Discharge Plan: HH - I/E management of care in an urgent or emergency (ER) situation: When to call your Home Care Team/[facility], ER plans, supplies, evacuation, when to contact [...] Completed documented in this encounter Care Teams Tow Mate Relationship Specialty Start Date End Date Antione Segura PA-C [address] [place] [address] [email or web address] PCP - General Physician Dewer 10/12/24 Jn Cardoza MD [address] [place] [address], 2nd [place] [address] Neurology 02/03/24 Denys Henriquez MD [address] [place] [address] [place] [address] Pulmonary Disease 02/03/24 Rhett Cortez MD [address] [place] [address] [email or web address] Insurance Assigned Provider 01/20/25 documented as of this encounter Additional Source Comments The information contained in this document represents components of the legal health record. It is not the complete legal health record.[facility]
--- NOTE | ~2025-02-14 | US_ITS ---
EXAMINATION: MM DIAGNOSTIC DIGITAL BREAST TOMOSYNTHESIS, BILATERAL Limited left breast ultrasound. CLINICAL INFORMATION: Patient had recent CT angiogram which demonstrated a 11 mm nodule in the medial left breast. COMPARISON: Mammography: Comparison is made with relevant prior exams. TECHNIQUE: Digital breast mammography with tomosynthesis is performed in both the craniocaudal and mediolateral oblique views along with computer-aided detection (CAD). FINDINGS: There are scattered areas of fibroglandular density (ACR BI-RADS breast composition Category b). Right: There are no significant masses, abnormal calcifications, or other abnormalities. Left: Focal asymmetry in the slightly lower inner breast anterior to middle depth is a questionable correlate for the nodule seen on CT angiography. Otherwise no suspicious calcifications masses or other abnormal findings. Targeted color Doppler ultrasound scanning in the medial left breast from 12-6 o'clock demonstrates normal follicular breast tissue. At 9:00 7 cm from the nipple there is an area of hematoma versus minimally complicated cysts versus solid mass at 9:00 7 cm from the nipple measuring approximately 3 x 3 x 7 mm which is a questionable correlate for the area on CT angiography and focal asymmetry in the left breast. Results are provided to the patient at time of visit by the technologist. US/US breast LT limited mamm only IMPRESSION: Right: Negative. Left: Focal asymmetry in the lower inner breast with probable correlate at 9:00 7 cm from the nipple this likely correlates with the area seen on CT angiogram. Recommend 6 month follow-up ultrasound for further evaluation of stability. ASSESSMENT: BI-RADS BI-RADS 3 - Probably benign finding(s) - 6 month follow-up suggested RECOMMENDATION: 6 Month F/U This patient's information was entered into a reminder system with a target due date for their next mammogram. Electronically signed by: Bertha Mcdaniel DO 02/14/2025 12:36 PM EDT
--- OUTSIDE RECORDS SUMMARY | 2025-02-14 12:10 | XMS_ITS | Clinical Summary ---
Author Organization [facility] Address [address] [id number] Care Team Providers Care Camp Maintenance Supervisor Name Role Phone Antione Segura Primary Care Provider [phone] Allergies Active Allergy Reactions Criticality Noted Date Comments Adhesive Rash Medium 05/04/2017 Iodinated Contrast Media Hives 05/04/2017 Latex, Natural Rubber Rash Low 05/04/2017 Procaine Hives 02/11/2000 Hives-novacaine Medications albuterol (PROAIR HFA,VENTOLIN HFA) 90 mcg inhaler Inhale 2 puffs by mouth every 4 hours as needed. 01/23/20 25 Active ARIPiprazole (ABILIFY) 5 mg tablet Take 5 mg by mouth daily. 12/28/19 25 Active atorvastatin (LIPITOR) 80 mg tablet Take 80 mg by mouth daily. 12/12/19 25 Active baclofen (LIORESAL) 10 mg tablet Take 20 mg by mouth 3 times a day. 09/20/19 25 Active butalbital-aceta minophen-caffein e (FIORICET) 50-325-40 mg tablet Take 1 tablet by mouth every 6 hours as needed for migraine. 10/13/19 25 Active calcium carbonate-vitami n D3 600 mg-5 mcg (200 unit) per tablet Take 1 tablet by mouth daily. 08/09/[address] (CYMBALTA) 60 mg capsule Take 60 mg by mouth 2 times daily. 03/17/20 24 Active furosemide (LASIX) 20 mg tablet Take 20 mg by mouth once a day. 11/30/19 25 Active oxyCODONE IR (ROXICODONE) 5 mg tablet Take 5 mg by mouth every 12 hours as needed. 01/15/20 25 Active hyoscyamine (ANASPAZ,LEVSIN) 0.125 mg tablet Take 0.125 mg by mouth every 6 hours as needed for cramping or diarrhea. 11/08/19 25 Active ipratropium-albu teroL (DUO-NEB) 0.5-2.5 mg/3 mL nebulizer solution Inhale 3 mL via nebulizer every 4 hours as needed for shortness of breath. 01/23/20 25 Active LORazepam (ATIVAN) 0.5 mg tablet Take 0.5 mg by mouth 2 times daily as needed. 12/29/19 25 Active OXcarbazepine (TRILEPTAL) 300 mg tablet Take 450 mg by mouth 2 times daily. 07/06/19 25 Active prazosin (MINIPRESS) 2 mg capsule Take 2 mg by mouth daily. 08/09/19 25 Active predniSONE (DELTASONE) 50 mg tablet Take 50 mg by mouth once a day. 01/23/20 25 Active verapamiL (CALAN) 120 mg tablet Take 120 mg by mouth 2 (two) times a day. 12/23/19 25 Active valsartan (DIOVAN) 40 mg tablet Take 40 mg by mouth once a day. 12/27/19 25 Active gabapentin (NEURONTIN) 300 mg capsule Take 1,200 mg by mouth 3 times daily. 01/24/20 25 025 Active omeprazole (PriLOSEC) 20 mg capsule Take 20 mg by mouth daily. 12/28/19 25 Active aspirin chewable tablet 81 mg Chew and swallow 81 mg by mouth once a day. Active ensifentrine 3 mg/2.5 mL suspension for nebulization Inhale 3 mg by mouth 2 times a day. 150 mL 3 01/25/20 25 Active budesonide-glyco pyr-formoterol (Breztri Aerosphere) 160-9-4.8 mcg/actuation HFA aerosol inhaler Inhale 2 puffs by mouth 2 times a day. 10.7 g 5 01/26/20 25 Active roflumilast (DALIRESP) 500 mcg tablet Take 500 mcg by mouth daily. 10/11/19 25 025 Discontinued Trelegy Ellipta 200-62.5-25 mcg blister with device inhaler Inhale 1 puff by mouth once a day. 04/02/20 24 025 Discontinued Active Problems Problem Noted Date Diagnosed Date Acute on chronic hypoxic respiratory failure Persistent cough 12/28/2024 Trigeminal neuralgia 12/28/2024 Acute congestive heart failure 11/29/2024 Benign essential hypertension 10/12/2024 NSTEMI (non-ST elevated myocardial infarction) 0 12/22/2023 Stage 2 moderate COPD by GOLD classification Pulmonary nodules 03/11/2023 Non-rheumatic mitral regurgitation 11/03/2017 Non-rheumatic tricuspid valve insufficiency 10/13 Cerebral aneurysm 05/04/2017 Anxiety 05/04/2017 Hyperlipidemia 05/04/2017 Irritable bowel syndrome 05/04/2017 Nightmares associated with c hronic post-traumatic stress disorder 05/04/2017 Sacroiliitis, not elsewhere classified 7 Encounters Date Type Department Care Team Description 01/29/2025 Telephone [facility] [address] [place] [address] Spanish Teacher: Federico Hill Telephone Intake, Staff PAC Order Request; Dr. Bautista 01/25/2025 Orders Only [facility] [address] [place] [phone] Spanish Teacher: Remy Santos MD 01/25/2025 Telephone [facility] [address] [place] [address] Remy Bautista MD Lily/med was not sent to pharmacy 01/24/2025 11:00 AM EDT Office Visit [facility] [address] [place] [phone] Spanish Teacher: Remy Santos MD Stage 2 moderate COPD by GOLD classification (HCC) (Primary Dx); Mass of left breast, unspecified quadrant 12/21/2024 Orders Only External Imaging [address] [place] [address] Radiology, External from Last 3 Months Family History Medical History Relation Name Comments COPD Father Asthma Neg Hx Emphysema Neg Hx Lung cancer Neg Hx Pulmonary fibrosis Neg Hx Relation Name Status Comments Father Social History Tobacco Use Types Packs/Day Years Used Date Smoking Tobacco: Former Cigarettes 1 38.8 0 06/14/1985 - 04/14/2024 Smokeless Tobacco: Never Comments Unknown Sex and Gender Information Value Date Recorded Sex Assigned at Female 01/10/2025 3:00 PM EDT Legal Sex Female 1:07 AM EDT Gender Identity Not on file Sexual Orientation Not on file Last Filed Vital Signs Vital Sign Reading Time Taken Comments Blood Pressure 149/85 01/24/2025 10:32 AM EDT Pulse 89 01/24/2025 10:32 AM EDT Temperature - - Respiratory Rate 16 01/24/2025 10:32 AM EDT Oxygen Saturation 96% 01/24/2025 10:32 AM EDT Inhaled Oxygen Concentration - - Weight 89.4 kg (197 lb) 01/24/2025 10:32 AM EDT Height - - Body Mass Index - - Plan of Treatment Upcoming Encounters Date Type Department Care Team (Late st Contact Info) Description 05/30/2025 2:00 PM EST Follow-Up [facility] [address] [place] [address] [phone] Spanish Teacher: Remy Santos MD [address] [place] [phone] Health Maintenance Due Date Last Done Comments Cervical Cancer Screening 1963 Cologuard 1963 Colon Cancer Screening 1963 Colonoscopy 1963 FOBT / Fit Test 1963 HIV Screening 1963 HPV and Pap Smear 1963 Pap Smear 1963 Sigmoidoscopy 1963 Zoster Vaccines (1 of 2) 2013 DTaP,Tdap,and Td Vaccines (1 - Tdap) 12/30/2013 12/29/2013 RSV Vaccine (60+ years old and patients) (1 - Risk 60-74 years 1-dose series) 2023 Alcohol/Substance Use Screening 06/14/2024 Depression Screening and Follow-Up 06/14/2024 Social Drivers of Health Annual Screening 06/14/2024 COVID-19 Vaccine ( season) 2025 07/18/2021, 10/02/2020, 09/11/2020 Influenza Vaccine (#1) 2025 , 07/29/2023, 02/27/2022, Additional history exists Mammogram 05/26/2025 05/26/2023, 05/14, 09/29/2021, Additional history exists CT Lung Cancer Screening (Baseline) 11/30/2025 11/30/2024, 08/27/2022 Basic Metabolic Panel 12/14/2025 12/14/2024 Hepatitis C Screening Completed 05/25/2019 Pneumococcal Vaccine: 50+ Years Completed 02/29/2024, 02/22/2020 Hepatitis B Vaccines Aged Out No long er eligible based on patient's age to complete this topic Procedures * Due to [facility] law, this organization might not be sharing negative HIV tests. Procedure Name Priority Date/Time Associated Diagnosis Comments LAB - SCANNED 01/10/2025 AMB EXTERNAL XR CHEST, OUTSI DE RESULT 01/04/2025 AMB EXTERNAL ANGIOGRAM, OUTS YUN RESULT 12/21/[address] CHEST, OUTSI DE RESULT 11/30/2024 AMB EXTERNAL XR CHEST, OUTSI DE RESULT 11/18/2024 from Last 3 Months Results * Due to [place] [employer] law, this organization might not be sharing negative HIV tests. * LAB - SCANNED (01/10/2025) us Onbase Scan [facility] LAB HISTORICAL RESULTS Final Result * XR Chest, Outside Result (01/04/2025) Only the most recent of2 resultswithin the time period is included. Anatomical Region Laterality Modality Other 01/04/2025 us Onbase Scan [facility] AMB EXTERNAL RESULT PROCEDURE S Final Result * Angiogram, Outside Result (12/21/2024) Anatomical Region Laterality Modality Other 12/21/2024 us Onbase Scan [facility] AMB EXTERNAL RESULT PROCEDURE S Final Result * CT Chest, Outside Result (11/30/2024) Anatomical Region Laterality Modality Other 11/30/2024 us Onbase Scan [facility] AMB EXTERNAL RESULT PROCEDURE S Final Result from Last 3 Months Insurance [facility] HMO/POS Care Teams Camp Maintenance Supervisor Relationship Specialty Start Date End Date Antione Segura PA [address] [place] [phone] PCP - General Emergency Medicine 01/10/25
--- OUTSIDE RECORDS SUMMARY | 2025-02-14 12:10 | XMS_ITS | Encounter Summary ---
Author Organization [facility] Address [address] [place] [address] [place] [phone] Phone Care Team Providers Care Citrix Lead Name Role Phone Lang Germain MD Unavailable [phone] Jennifer Duke AREA ATTENDANT Primary Care Provider Sirisha Huertas TERMITE EXTERMINATOR Primary Care Provider Jn Cardoza MD Unavailable Denys Henriquez MD Unavailable Liyah Patterson MD Unavailable Liyah Patterson MD Primary Care Provider Antione Segura PA-C Primary Care Provider Rhett Cortez MD Unavailable Encounter Details Date Type Department Care Team (Late st Contact Info) Description 11/11/2021 Transcribe Orders [facility] [address] [place] [address] Jennifer Duke, AREA ATTENDANT [address] [facility] [address] [place] [address] Social History Tobacco Use Types Packs/Day Years [...] 02/14/2025 1:30 PM EDT Home Care Visit [facility] [address] [place], [place] [phone] Shakira Hand RN [address] [place] [address] 02/15/2025 9:00 AM EDT Office Visit [facility] [address] [place] [address] Antione Segura PA-C [address] [place] [address] 02/21/2025 1:00 AM EDT Appointment [facility] [address] [place], [place] [phone] Shakira Hand RN [address] [place] [address] 04/17/2025 1:00 PM EST [facility] [address] [place] [address] Brittnee Vigil MD [address] [place] [phone] 06/25/2025 9:30 AM EST Telemedicine [facility] Neurology [address] [place] [address] Jn Cardoza MD [address] [facility], 2nd [place] [address] [email or web address] documented as of this encounter Visit Diagnoses Not on filedocumented in this encounter Additional Health Concerns Assessment Noted Time PHQ-2 Depression Total Score: 0 05/25/20 19 9:02 AM EST documented as of this encounter Care Teams Citrix Lead Relationship Specialty Start Date End Date Jennifer Duke AREA ATTENDANT [address] [place] [phone] [email or web address] PCP - General Family Medicine 01/31/20 06/22/23 Sirisha Huertas FNP [address] [place] [phone] [email or web address] PCP - General Nurse Practitioner 06/23/23 08/03/24 Liyah Patterson MD [address] [place] [address] [email or web address] PCP - General Family Medicine 08/04/24 10/11/24 Antione Segura PA-C [address] [place] [phone] [email or web address] PCP - General Physician Order Tracer 10/12/24 Lang Germain MD [address] [place] [phone] [email or web address] Insurance Assigned Provider 09/18/23 02/19/24 Jn Cardoza MD [address] [facility], 2nd [place] [address] [email or web address] Neurology 02/03/24 Denys Henriquez MD [address] [place] [address] [place] [address] Pulmonary Disease 02/03/24 Liyah Patterson MD 15 [facility] [address]. [address] [place] [address] Insurance Assigned Provider 02/19/24 01/20/25 Rhett Cortez MD [address] [place] [address] Insurance Assigned Provider 01/20/25 documented as of this encounter Additional Source Comments The information contained in this document represents components of the legal health record. It is not the complete legal health record.[facility]
--- OUTSIDE RECORDS SUMMARY | 2025-02-14 12:10 | XMS_ITS | Encounter Summary ---
Author Organization [facility] Address [address] [address] Phone Care Team Providers Care Flight Control Manager Name Role Phone Jn Cardoza MD Unavailable Denys Henriquez MD Unavailable Liyah Patterson MD Unavailable Antione Segura-C Primary Care Provider Rhett Cortez MD Unavailable Encounter Details Date Type Department Care Team (Late st Contact Info) Description 01/09/2025 Home Health Resumption of Care Planning [facility] [address] [place] [phone] Koki Simons, HUA [address] [place] [address] Social History Tobacco Use Types Packs/Day Years Used Date Smoking Tobacco: Former Cigarettes 0.8 42.6 0 11/25/1981 - 04/2024 Passive Smoke Exposure: Never Smokeless Tobacco: Never Alcohol Use Standard Drinks/Week Comments Yes 0 (1 standard drink = 0.6 oz pur e alcohol) 1-2 drinks, 2 x year Home Health Assessment: Transportation Answer Date Recorded Lack of Transportation (Medical) No 01/10/2025 Lack of Transportation (Non-Medical) No 01/10/2025 Patient Unable or Declines to Respond No 01/10/2025 Child or Family Care Answer Date Record ed Do you have problems with on e of the following making it difficult for you to work, study, or receive health care? No 02/18/2023 Education Answer Date Recorded Are you interested in help w ith more adult education (for example, completing high school, GED, job training, learning the Pashto language, technical skills, or developing parenting skills)? [...] 1:30 PM EDT Home Care Visit [facility] [address] [place] [address] Shakira Hand RN [address] [place] [address] 02/15/2025 9:00 AM EDT Office Visit [facility] Medicine [address] [place] [address] Antione Segura PA-C [address] [place] [address] 02/21/2025 1:00 AM EDT Appointment [facility] [address] [place] [address] Shakira Hand RN [address] [place] [address] 04/17/2025 1:00 PM EST Office Visit [facility] [address] [place] [address] Brittnee Vigil MD [address] [place] [phone] 06/25/2025 9:30 AM EST Telemedicine [facility] Neurology [address] [place] [address] Jn Cardoza MD [address] [address] [email or web address] documented as of this encounter Visit Diagnoses Not on filedocumented in this encounter Additional Health Concerns Assessment Noted Time PHQ-9 Depression Total Score: 20 025 9:08 PM EDT PHQ-2 Depression Total Score: 6 12/28/19 25 9:08 PM EDT documented as of this encounter Care Teams Flight Control Manager Relationship Specialty Start Date End Date Antione Segura PA-C [address] [place] [address] [email or web address] PCP - General Physician Reducer 10/12/24 Jn Cardoza MD [address] [address] [email or web address] Neurology 02/03/24 Denys Henriquez MD [address] [place] [address] [place] [address] Pulmonary Disease 02/03/24 Liyah Patterson MD [address] [address] [email or web address] Insurance Assigned Provider 02/19/24 01/20/25 Rhett Cortez MD [address] [place] [address] [email or web address] Insurance Assigned Provider 01/20/25 documented as of this encounter Additional Source Comments The information contained in this document represents components of the legal health record. It is not the complete legal health record.[facility]
--- OUTSIDE RECORDS SUMMARY | 2025-02-14 12:10 | XMS_ITS | Encounter Summary ---
Author Organization [facility] Address [address] [address] Phone Care Team Providers Care Vat Operator Name Role Phone Jn Cardoza MD Unavailable Denys Henriquez MD Unavailable [phone] Liyah Patterson MD Unavailable Antione Segura-C Primary Care Provider [phone] Rhett Cortez MD Unavailable Encounter Details Date Type Department Care Team (Late st Contact Info) Description 12/06/2024 Home Health Resumption of Care Planning [facility] [address] [place] [address] Diana Torres, RN [address] [place] [address] [email or web address] Social History Tobacco Use Types Packs/Day Years Used Date Smoking Tobacco: Former Cigarettes 0.8 42.6 0 11/25/1981 - 04/2024 Passive Smoke Exposure: Never Smokeless Tobacco: Never Alcohol Use Standard Drinks/Week Comments Yes 0 (1 standard drink = 0.6 oz pur e alcohol) 1-2 drinks, 2 x year Home Health Assessment: Transportation Answer Date Recorded Lack of Transportation (Medical) No 11/02/2024 Lack of Transportation (Non-Medical) No 11/02/2024 Patient Unable or Declines to Respond No 11/02/2024 Child or Family Care Answer Date Record ed Do you have problems with on e of the following making it difficult for you to work, study, or receive health care? No 02/18/2023 Education Answer Date Recorded Are you interested in help w ith more adult education (for example, completing high school, GED, job training, learning the Tajik language, technical skills, or developing parenting skills)? [...] 02/14/2025 1:30 PM EDT Home [facility] [address] [place] [address] Shakira Hand RN [address] [place] [address] 02/15/2025 9:00 AM EDT Office Visit [facility] Medicine [address] [place] [address] Antione Segura PA-C [address] [place] [address] [email or web address] 02/21/2025 1:00 AM EDT Appointment [facility] [address] [place] [address] Shakira Hand RN [address] [place] [address] 04/17/2025 1:00 PM EST Office Visit [facility] [address] [place] [address] Brittnee Vigil MD [address] [place] [address] 06/25/2025 9:30 AM EST Telemedicine [facility] Neurology [address] [place] [address] Jn Cardoza MD [address] [address] [email or web address] documented as of this encounter Visit Diagnoses Not on filedocumented in this encounter Additional Health Concerns Assessment Noted Time PHQ-9 Depression Total Score: 21 025 12:31 PM EDT PHQ-2 Depression Total Score: 6 10/13/19 25 12:31 PM EDT documented as of this encounter Care Teams Vat Operator Relationship Specialty Start Date End Date Antione Segura PA-C [address] [place] [address] [email or web address] PCP - General Physician Senior Sql Dba 10/12/24 Jn Cardoza MD [address] [address] Neurology 02/03/24 Denys Henriquez MD [address] [place] [address] [place] [address] Pulmonary Disease 02/03/24 Liyah Patterson MD [address] [address] [email or web address] Insurance Assigned Provider 02/19/24 01/20/25 Rhett Cortez MD [address] [place] [address] [email or web address] Insurance Assigned Provider 01/20/25 documented as of this encounter Additional Source Comments The information contained in this document represents components of the legal health record. It is not the complete legal health record.[facility]
--- OUTSIDE RECORDS SUMMARY | 2025-02-14 12:10 | XMS_ITS | Encounter Summary ---
Author Organization [facility] Address [address] [place] [address] Phone Care Team Providers Care Street Light Inspector Name Role Phone Charbel Webber MD Unavailable Alverto Gandara MD Unavailable [phone] Maikel Rawls MD Unavailable [phone] Jennifer Duke LAYDOWN MACHINE OPERATOR Primary Care Provider Lang Germain MD Primary Care Provider Jennifer Duke LAYDOWN MACHINE OPERATOR Primary Care Provider Lang Germain MD Unavailable Lang Germain MD Primary Care Provider Jennifer Duke LAYDOWN MACHINE OPERATOR Primary Care Provider Lang Germain MD Primary Care Provider Jennifer Duke LAYDOWN MACHINE OPERATOR Primary Care Provider Lang Germain MD Primary Care Provider Jennifer Duke LAYDOWN MACHINE OPERATOR Primary Care Provider Lang Germain MD Primary Care Provider [place], Jennifer L LAYDOWN MACHINE OPERATOR Unavailable [phone] Jennifer Duke LAYDOWN MACHINE OPERATOR Primary Care Provider [phone] Lang Germain MD Primary Care Provider [phone] Jennifer Duke LAYDOWN MACHINE OPERATOR Primary Care Provider [phone] Sirisha Huertas FIRE EXTINGUISHER REPAIRER INSPECTOR Primary Care Provider [phone] Jn Cardoza MD Unavailable Denys Henriquez MD Unavailable Liyah Patterson MD Unavailable Liyah Patterson MD Primary Care Provider [phone] Antione Segura PA-C Primary Care Provider [phone] Rhett Cortez MD Unavailable Encounter Details Date Type Department Care Team (Late st Contact Info) Description 09/13/2018 Procedure Pass [facility], [address] [address] Social History Tobacco Use Types Packs/Day Years Used Date Smoking Tobacco: Former Cigarettes 1 30 Smokeless Tobacco: Current Comments:went to electronic cigs Alcohol Use Standard Drinks/Week Comments Yes 0 (1 standard drink = 0.6 oz pur e alcohol) occationally Comments Unknown Sex and Gender Information Value [...] 02/14/2025 1:30 PM EDT Home Care Visit [facility] [address] [place] [phone] Shakira Hand, HUA [address] [place] [address] 02/15/2025 9:00 AM EDT Office Visit [facility] [place] [facility] 40 [place] [address] Antione Segura PA-C 40 [place] [address] [email or web address] 02/21/2025 1:00 AM EDT Appointment [facility] 30 [place] [phone] Shakira Hand RN 168 [place] [address] [email or web address] 04/17/2025 1:00 PM EST Office Visit [facility] 15 [place] [address] Brittnee Vigil MD 75 [place] [address] 06/25/2025 9:30 AM EST Telemedicine [facility] Neurology 22 [place] [address] Jn Cardoza MD 22 [facility], 2nd [place] [address] [email or web address] documented as of this encounter Visit Diagnoses Not on filedocumented in this encounter Additional Health Concerns Assessment Noted Time PHQ-2 Depression Total Score: 0 08/20/19 19 9:13 AM EST documented as of this encounter Care Teams Street Light Inspector Relationship Specialty Start Date End Date Jennifer Duke NP [address] [address] [email or web address] PCP - General Family Medicine 09/08/18 09/14/18 Lang Germain MD 40 [place] [address] [email or web address] PCP - General Internal Medicine 09/15/18 10/02/18 Jennifer Duke NP [address] [address] [email or web address] PCP - General Family Medicine 10/03/18 10/05/18 Lang Germain MD [address] [place] [address] [email or web address] PCP - General Internal Medicine 10/06/18 10/12/18 Jennifer Duke NP [address] [place] [address] [email or web address] PCP - General Family Medicine 10/13/18 11/09/18 Lang Germain MD [address] [place] [address] [email or web address] PCP - General Internal Medicine 11/10/18 11/22/18 Jennifer Duke NP [address] [address] [email or web address] PCP - General Family Medicine 11/23/18 11/30/18 Lang Germain MD [address] [place] [address] [email or web address] PCP - General Internal Medicine 12/01/18 12/13/18 Jennifer Duke NP [address] [place] [address] [email or web address] PCP - General Family Medicine 12/14/18 11/12/19 Lang Germain MD [address] [place] [address] [email or web address] PCP - General Internal Medicine 11/13/19 12/03/19 Jennifer Duke, LAYDOWN MACHINE OPERATOR [address] [place] [address] [email or web address] PCP - General Family Medicine 12/04/19 01/23/20 Lang Germain MD [address] [place] [address] [email or web address] PCP - General Internal Medicine 01/24/20 01/30/20 Jennifer Duke, LAYDOWN MACHINE OPERATOR [address] [place] [address] [email or web address] PCP - General Family Medicine 01/31/20 06/22/23 Sirisha Huertas FNP [address] [place] [address] [email or web address] PCP - General Nurse Practitioner 06/23/23 08/03/24 Liyah Patterson MD [address] [place] [address] [email or web address] PCP - General Family Medicine 08/04/24 10/11/24 Antione Segura PA-C [address] [place] [address] PCP - General Physician Cyanide Pot Tender 10/12/24 Charbel Webber MD [address] [place] [address], [address] [place] [address] [email or web address] Historical LMR Provider 04/01/17 0 Alverto Gandara MD [address] [place] [address], [address] [place] [address] [email or web address] Historical LMR Provider 04/01/17 12/03/19 Maikel Rawls MD [address] [place] [address] [email or web address] Historical LMR Provider 04/01/17 12/03/19 Lang Germain MD [address] [place] [address] [email or web address] Insurance Assigned Provider 09/18/23 02/19/24 Jennifer Duke NP [address] [place] [address] [email or web address] Nurse Practitioner Family Medicine 11/13/19 01/30/20 Jn Cardoza MD [address] [place] [address], [address] [place] [address] Neurology 02/03/24 Denys Henriquez MD [address] [place] [address] [place] [address] Pulmonary Disease 02/03/24 Liyah Patterson MD [address] [place] [address] [email or web address] Insurance Assigned Provider 02/19/24 01/20/25 Rhett Cortez MD [address] [place] [address] [email or web address] Insurance Assigned Provider 01/20/25 documented as of this encounter Additional Source Comments The information contained in this document represents components of the legal health record. It is not the complete legal health record.[facility]
--- OUTSIDE RECORDS SUMMARY | 2025-02-14 12:10 | XMS_ITS | Encounter Summary ---
Author Organization [facility] Address [address] [place] [address] Phone Care Team Providers Care Associate Professor Of Biostatistics Name Role Phone Lang Germain MD Unavailable [phone] Jennifer Duke TROUBLE CLERK Primary Care Provider Sirisha Huertas DANCE HALL HOST/HOSTESS Primary Care Provider Jn Cardoza MD Unavailable Denys Henriquez MD Unavailable [phone] Liyah Patterson MD Unavailable Liyah Patterson MD Primary Care Provider [phone] Antione Segura PA-C Primary Care Provider Rhett Cortez MD Unavailable Encounter Details Date Type Department Care Team (Late st Contact Info) Description 09/01/2021 Procedure Pass [address] [address] Social History Tobacco Use Types Packs/Day Years [...] 1:30 PM EDT Home Care Visit [facility] [address] [place], [place] [phone] Shakira Hand, HUA 168 [place] [address] 02/15/2025 9:00 AM EDT Office Visit [facility] Internal Medicine 40 [place] [address] Antione Segura PA-C 40 [place] [address] 02/21/2025 1:00 AM EDT [facility]ment [facility] [address] [place], [place] [phone] Shakira Hand RN 168 [place] [address] 04/17/2025 1:00 PM EST Office Visit [facility] 15 [place] [address] Brittnee Vigil MD [address] [place] [address] 06/25/2025 9:30 AM EST Telemedicine [facility] Neurology [address] [place] [address] Jn Cardoza MD [address] [address] [email or web address] documented as of this encounter Visit Diagnoses Not on filedocumented in this encounter Additional Health Concerns Assessment Noted Time PHQ-2 Depression Total Score: 0 05/25/20 19 9:02 AM EST documented as of this encounter Care Teams Associate Professor Of Biostatistics Relationship Specialty Start Date End Date Jennifer Duke, TROUBLE CLERK [address] [place] [address] [email or web address] PCP - General Family Medicine 01/31/20 06/22/23 Sirisha Huertas FNP [address] [place] [address] [email or web address] PCP - General Nurse Practitioner 06/23/23 08/03/24 Liyah Patterson MD [address] [place] [address] [email or web address] PCP - General Family Medicine 08/04/24 10/11/24 Antione Segura PA-C [address] [place] [address] [email or web address] PCP - General Physician Shipping Hand 10/12/24 Lang Germain MD [address] [place] [address] [email or web address] Insurance Assigned Provider 09/18/23 02/19/24 Jn Cardoza MD [address] [place] [address] Neurology 02/03/24 Denys Henriquez MD [address] [place] [address] [place] [address] Pulmonary Disease 02/03/24 Liyah Patterson MD [address] [place] [address] [email or web address] Insurance Assigned Provider 02/19/24 01/20/25 Rhett Cortez MD 40 [place] [address] [email or web address] Insurance Assigned Provider 01/20/25 documented as of this encounter Additional Source Comments The information contained in this document represents components of the legal health record. It is not the complete legal health record.[facility]
--- OUTSIDE RECORDS SUMMARY | 2025-02-14 12:10 | XMS_ITS | Encounter Summary ---
Author Organization [facility] Address [address] [place] [address] Phone Care Team Providers Care High School Counselor Name Role Phone Lang Germain MD Unavailable [phone] Jennifer Duke LOAD TESTER Primary Care Provider Sirisha Huertas BULLET LUBRICANT MIXER Primary Care Provider Jn Cardoza MD Unavailable Denys Henriquez MD Unavailable Liyah Patterson MD Unavailable Liyah Patterson MD Primary Care Provider [phone] Antione Segura PA-C Primary Care Provider Rhett Cortez MD Unavailable Encounter Details Date Type Department Care Team (Late st Contact Info) Description 11/27/2021 Procedure Pass [facility], [address] [place] [address] Social History Tobacco Use Types Packs/Day Years [...] Visit [facility] [address] [place], [place] [phone] Shakira Hand RN 168 [place] [address] 02/15/2025 9:00 AM EDT Office Visit [facility] [place] [facility] 40 [place] [address] Antione Segura PA-C 40 [place] [address] [email or web address] 02/21/2025 1:00 AM EDT Appointment [facility] [address] [place], [place] [phone] Shakira Hand RN [address] [place] [address] [email or web address] 04/17/2025 1:00 PM EST Office Visit [facility] Diseases [address] [place] [address] Brittnee Vigil MD [address] [place] [address] 06/25/2025 9:30 AM EST Telemedicine [facility] Neurology 22 [place] [address] Jn Cardoza MD 22 [facility], 2nd [place] [address] documented as of this encounter Visit Diagnoses Not on filedocumented in this encounter Additional Health Concerns Assessment Noted Time PHQ-2 Depression Total Score: 0 05/25/20 9:02 AM EST documented as of this encounter Care Teams High School Counselor Relationship Specialty Start Date End Date Jennifer Duke NP [address] [place] [address] [email or web address] PCP - General Family Medicine 01/31/20 06/22/23 Sirisha Huertas FNP [address] [place] [address] [email or web address] PCP - General Nurse Practitioner 06/23/23 08/03/24 Liyah Patterson MD [address] [place] [address] [email or web address] PCP - General Family Medicine 08/04/24 10/11/24 Antione Segura PA-C [address] [place] [address] PCP - General Physician Doctor Of Nurse Anesthesia 10/12/24 Lang Germain MD [address] [place] [address] Insurance Assigned Provider 09/18/23 02/19/24 Jn Cardoza MD 22 [facility], 2nd [place] [address] Neurology 02/03/24 Denys Henriquez MD [address] [place] [address] [place] [address] Pulmonary Disease 02/03/24 Liyah Patterson MD 15 [facility] [address]. [address] [place] [address] Insurance Assigned Provider 02/19/24 01/20/25 Rhett Cortez MD 40 [place] [address] Insurance Assigned Provider 01/20/25 documented as of this encounter Additional Source Comments The information contained in this document represents components of the legal health record. It is not the complete legal health record.[facility]
--- OUTSIDE RECORDS SUMMARY | 2025-02-14 12:10 | XMS_ITS | Encounter Summary ---
Author Organization [facility] Address [address] [place] [address] Phone Care Team Providers Care Ferryboat Helper Name Role Phone Lang Germain MD Unavailable Jennifer Duke RESEARCH INVESTIGATOR Primary Care Provider Sirisha Huertas VOLLEYBALL PLAYER Primary Care Provider [phone] Jn Cardoza MD Unavailable Denys Henriquez MD Unavailable [phone] Liyah Patterson MD Unavailable Liyah Patterson MD Primary Care Provider [phone] Antione Segura PA-C Primary Care Provider Rhett Cortez MD Unavailable Encounter Details Date Type Department Care Team (Late st Contact Info) Description 05/06/2021 Procedure Pass [facility], [address] [address] Social History Tobacco Use Types Packs/Day Years [...] 1:30 PM EDT Home Care Visit [facility] 30 [place], [place] [phone] Shakira Hand, HUA [address] [place] [address] 02/15/2025 9:00 AM EDT Office Visit [facility] Internal Medicine 40 [place] [address] Antione Segura PA-C 40 [place] [address] 02/21/2025 1:00 AM EDT [facility]ment [facility] 30 [place], [place] [phone] Shakira Hand RN 168 [place] [address] 04/17/2025 1:00 PM EST Office Visit [facility] 15 [place] [address] Brittnee Vigil MD [address] [place] [address] 06/25/2025 9:30 AM EST Telemedicine [facility] Neurology [address] [place] [address] Jn Cardoza MD [address] [address] [email or web address] documented as of this encounter Visit Diagnoses Not on filedocumented in this encounter Additional Health Concerns Assessment Noted Time PHQ-2 Depression Total Score: 0 05/25/20 19 9:02 AM EST documented as of this encounter Care Teams Ferryboat Helper Relationship Specialty Start Date End Date Jennifer Duke, RESEARCH INVESTIGATOR [address] [place] [address] [email or web address] PCP - General Family Medicine 01/31/20 06/22/23 Sirisha Huertas FNP [address] [place] [address] [email or web address] PCP - General Nurse Practitioner 06/23/23 08/03/24 Liyah Patterson MD [address] [place] [address] [email or web address] PCP - General Family Medicine 08/04/24 10/11/24 Antione Segura PA-C [address] [place] [address] [email or web address] PCP - General Physician Dining Room Supervisor 10/12/24 Lang Germain MD [address] [place] [address] [email or web address] Insurance Assigned Provider 09/18/23 02/19/24 Jn Cardoza MD [address] [place] [address] Neurology 02/03/24 Denys Henriquez MD [address] [place] [address] [place] [address] Pulmonary Disease 02/03/24 Liyah Patterson MD [address] [place] [address] [email or web address] Insurance Assigned Provider 02/19/24 01/20/25 Rhett Cortez MD 40 [place] [address] [email or web address] Insurance Assigned Provider 01/20/25 documented as of this encounter Additional Source Comments The information contained in this document represents components of the legal health record. It is not the complete legal health record.[facility]
--- OUTSIDE RECORDS SUMMARY | 2025-02-14 12:10 | XMS_ITS | Encounter Summary ---
Author Organization [facility] Address [address] [place] [address] Care Team Providers Care Coach Operator Name Role Phone Antione Segura Primary Care Provider [phone] Reason for Visit * Reason Onset Date Comments PAC Order Request 01/29/2025 Dr. Bautista 01/29/2025 Encounter Details Date Type Department Care Team (Late st Contact Info) Description 01/29/2025 Telephone [facility] [address] [place] [address] Contact Printer Dry Film: Federico Hill Telephone Intake, Staff PAC Order [...] 2:23 PM EDT Spoke to Pulmonary at [facility] regarding PFTs. They stated they can accept order fromDr. Bautista. Order faxed to [phone]. * Telephone Encounter - Amalia Paredes RN - 01/29/2025 1:38 PM EDT Spoke to patient. She stated not transferring care but would like to have the PFTs done closer to her, as it is a two [address] to [facility]. She is on portable oxygen and concerned that she would not have enough for such a long day of travel and testing. * Telephone Encounter - Diana Naeem - 01/29/2025 12:10 PM EDT Pt of Dr. Bautista would like PFT order faxed over to [facility] closer to her home, please advise pt # [phone] documented in this encounter Plan of Treatment Upcoming Encounters Date Type Department Care Team (Late st Contact Info) Description 05/30/2025 2:00 PM EST Follow-Up [facility] [address] [place] [address] Contact Printer Dry Film: Remy Santos MD [address] [place] [address] documented as of this encounter Visit Diagnoses Not on filedocumented in this encounter Care Teams Coach Operator Relationship Specialty Start Date End Date Antione Segura PA [address] [place] [address] PCP - General Emergency Medicine 01/10/25 documented as of this encounter
--- OUTSIDE RECORDS SUMMARY | 2025-02-14 12:10 | XMS_ITS | Encounter Summary ---
Author Organization [facility] Address [address] [place] [address] Phone Care Team Providers Care Payroll Accounting Clerk Name Role Phone Jn Cardoza MD Unavailable Denys Henriquez MD Unavailable Antione Segura PA-C Primary Care Provider [phone] Rhett Cortez MD Unavailable Encounter Details Date Type Department Care Team (Late st Contact Info) Description 02/14/2025 Documentation [facility] 40 [place], [place] [phone] Antione Segura PA-C 40 [place], [place] [phone] [email or web address] Social History Tobacco Use Types Packs/Day Years [...] high school, GED, job training, learning the British language, technical skills, or developing parenting skills)? [...] as of this encounter Progress Notes * Gwen Jennings CMA - 02/14/2025 7:47 AM EDT HM updated documented in this encounter Plan of Treatment Upcoming Encounters Date Type Department Care Team (Late st Contact Info) Description 02/14/2025 1:30 PM EDT Home Care Visit [facility] [address] [place] [phone] Shakira Hand RN 168 [place] [address] 02/15/2025 9:00 AM EDT Office Visit [facility] 40 [place] [address] Antione Segura PA-C 40 [place] [address] 02/21/2025 1:00 AM EDT Appointment [facility] [address] [place] [phone] Shakira Hand RN [address] [place] [address] 04/17/2025 1:00 PM EST Office Visit [facility] [address] [place] [address] Brittnee Vigil MD [address] [place] [address] [email or web address] 06/25/2025 9:30 AM EST Telemedicine [facility] Neurology [address] [place] [address] Jn Cardoza MD 22 [facility], 2nd [place] [address] [email or web address] documented as of this encounter Procedures Procedure Name Priority Date/Time Associated Diagnosis Comments OUTSIDE POTASSIUM LEVEL Routine 02/08/2025 OUTSIDE SERUM CREATININE LEVEL Routine 02/08/2025 OUTSIDE ALT LEVEL Routine 02/05/2025 documented in this encounter Results * Outside Potassium Level (02/08/2025) Potassium level - External 3.8 3.4 - 5.0 mmol/L [facility] Provider MD LAB BLOOD ORDERABLES Mariya l Result * (ABNORMAL) Outside Serum Creatinine Level (02/08/2025) Creatinine, serum - External 0.66(A) 0.8 - 1.3 mg/dL [facility] Provider MD LAB BLOOD ORDERABLES Mariya l Result * Outside ALT Level (02/05/2025) ALT - External 15 5 - 30 U/L [facility] Provider MD LAB BLOOD ORDERABLES Mariya l Result documented in this encounter Visit Diagnoses Not on filedocumented in this encounter Additional Health Concerns Assessment Noted Time PHQ-9 Depression Total Score: 15 025 9:44 AM EDT PHQ-2 Depression Total Score: 4 02/01/20 25 9:44 AM EDT documented as of this encounter Care Teams Payroll Accounting Clerk Relationship Specialty Start Date End Date Antione Segura PA-C [address] [place] [address] [email or web address] PCP - General Physician Machine Puller 10/12/24 Jn Cardoza MD [address] [place] [address], 2nd [place] [address] [email or web address] Neurology 02/03/24 Denys Henriquez MD [address] [place] [address] [place] [address] Pulmonary Disease 02/03/24 Rhett Cortez MD [address] [place] [address] [email or web address] Insurance Assigned Provider 01/20/25 documented as of this encounter Additional Source Comments The information contained in this document represents components of the legal health record. It is not the complete legal health record.[facility]
--- OUTSIDE RECORDS SUMMARY | 2025-02-14 12:10 | XMS_ITS | Encounter Summary ---
Author Organization [facility] Address [address] [place] [phone] Phone Care Team Providers Care Cafeteria Operator Name Role Phone Lang Germain MD Unavailable Jennifer Duke RAILROAD DINING CAR STEWARD/STEWARDESS Primary Care Provider Sirisha Huertas AUDIT ASSOCIATE Primary Care Provider Jn Cardoza MD Unavailable Denys Henriquez MD Unavailable Liyah Patterson MD Unavailable Liyah Patterson MD Primary Care Provider [phone] Antione Segura PA-C Primary Care Provider Rhett Cortez MD Unavailable Encounter Details Date Type Department Care Team (Late st Contact Info) Description 02/25/2023 Procedure Pass [facility], [address] [address] Social History Tobacco Use Types Packs/Day Years Used Date Smoking Tobacco: Every Day Cigarettes 0.8 43.2 Started: 11/25/1981 Passive Smoke Exposure: Never Smokeless Tobacco: Never Alcohol Use Standard Drinks/Week Comments Yes 0 (1 standard drink = 0.6 oz pur e alcohol) Holiday only Child or Family Care Answer Date Record ed Do you have problems with on e of the following making it difficult for you to work, study, or receive health care? No 02/18/2023 Education Answer Date Recorded Are you interested in help w ith more adult education (for example, completing high school, GED, job training, learning the Afghan language, technical skills, or developing parenting skills)? [...] ecorded Denied Basic Needs Not on file 02/18/2023 In the past 12 months have y ou been in a relationship with a person who hurts, threatens, or tries to control you? No 02/18/2023 Worried food would run out Not on file 02/18 In the past 12 months have y ou been in a relationship with a person who hurts, threatens, or tries to control you? No 02/18/2023 Comments No Sex and Gender Information Value [...] Visit [facility] [address] [place], [place] [phone] Shakira Hand, HUA [address] [place] [address] 02/15/2025 9:00 AM EDT Office Visit [facility] Internal Medicine [address] [place] [address] Antione Segura PA-C [address] [place] [address] 02/21/2025 1:00 AM EDT Appointment [facility] [address] [place], [place] [phone] Shakira Hand RN [address] [place] [address] 04/17/2025 1:00 PM EST Office Visit [facility] [address] [place] [address] Brittnee Vigil MD [address] [place] [address] 06/25/2025 9:30 AM EST Telemedicine [facility] Neurology [address] [place] [address] Jn Cardoza MD [address] [place] [address] [phone] [email or web address] documented as of this encounter Visit Diagnoses Not on filedocumented in this encounter Additional Health Concerns Assessment Noted Time PHQ-9 Depression Total Score: 21 023 12:35 PM EDT PHQ-2 Depression Total Score: 2 02/19/20 23 6:55 PM EDT documented as of this encounter Care Teams Cafeteria Operator Relationship Specialty Start Date End Date Jennifer Duke, [place] [address] [place] [address] [email or web address] PCP - General Family Medicine 01/31/20 06/22/23 Sirisha Huertas FNP [address] [address] [email or web address] PCP - General Nurse Practitioner 06/23/23 08/03/24 Liyah Patterson MD [address] [phone] [email or web address] PCP - General Family Medicine 08/04/24 10/11/24 Antione Segura PA-C [address] [place] [email or web address] PCP - General Physician Ventilator Specialist 10/12/24 Lang Germain MD [address] [place] [address] [email or web address] Insurance Assigned Provider 09/18/23 02/19/24 Jn Cardoza MD [address] [place] [address], [address] [place] [address] [email or web address] Neurology 02/03/24 Denys Henriquez MD [address] [place] [address] [place] [address] Pulmonary Disease 02/03/24 Liyah Patterson MD [address] [phone] [email or web address] Insurance Assigned Provider 02/19/24 01/20/25 Rhett Cortez MD [address] [place] [address] [email or web address] Insurance Assigned Provider 01/20/25 documented as of this encounter Additional Source Comments The information contained in this document represents components of the legal health record. It is not the complete legal health record.[facility]
--- OUTSIDE RECORDS SUMMARY | 2025-02-14 12:10 | XMS_ITS | Encounter Summary ---
Author Organization [facility] Address [address] [place] [phone] Phone Care Team Providers Care Retail Wireless Associate Name Role Phone Jn Cardoza MD Unavailable Denys Henriquez MD Unavailable Antione Segura PA-C Primary Care Provider Rhett Cortez MD Unavailable Reason for Visit * Reason Onset Date Comments PFT 01/24/2025 Encounter Details Date Type Department Care Team (Late st Contact Info) Description 01/24/2025 Telephone [facility] Internal Medicine [address] [place], [place] [phone] Antione Segura PA-C [address] [place] [address] [email or web address] PFT Social History Tobacco Use Types Packs/Day Years [...] high school, GED, job training, learning the Italian language, technical skills, or developing parenting skills)? [...] as of this encounter Progress Notes * Vanesa Macias - 01/24/2025 4:12 PM EDT CD PEN Top Smart Phrases: Fax Request Name of caller, if not the patient, AND where they are calling from: PT Name of Facility fax is being sent to: [facility] pulmonary Document(s) requested:all PFT testing with [employer] and [facility] CSS Agent (Please do not reply to this user, as this inbox is not monitored. Thank you.) Thank you. documented in this encounter Plan of Treatment Upcoming Encounters Date Type Department Care Team (Late st Contact Info) Description 02/14/2025 1:30 PM EDT Home Care Visit [facility] [address] [place] [address] Shakira Hand RN [address] [place] [address] [email or web address] 02/15/2025 9:00 AM EDT Office Visit [facility] Internal Medicine [address] [place] [address] Antione Segura PA-C [address] [place] [address] 02/21/2025 1:00 AM EDT Appointment [facility] [address] [place] [address] Shakira Hand RN [address] [place] [address] 04/17/2025 1:00 PM EST Office Visit [facility] [address] [place] [address] Brittnee Vigil MD [address] [place] [address] 06/25/2025 9:30 AM EST Telemedicine [facility] Neu[place] [address] Jn Cardoza MD [address] [address] documented as of this encounter Visit Diagnoses Not on filedocumented in this encounter Additional Health Concerns Assessment Noted Time PHQ-9 Depression Total Score: 025 9:08 PM EDT PHQ-2 Depression Total Score: 12/28/19 25 9:08 PM EDT documented as of this encounter Care Teams Retail Wireless Associate Relationship Specialty Start Date End Date Antione Segura PA-C [address] [place] [address] PCP - General Physician Assisted Living Manager 10/12/24 Jn Cardoza MD [address] [place] [address] Neurology 02/03/24 Denys Henriquez MD [address] [place] [address] [place] [address] Pulmonary Disease 02/03/24 Rhett Cortez MD [address] [place] [phone] [email or web address] Insurance Assigned Provider 01/20/25 documented as of this encounter Additional Source Comments The information contained in this document represents components of the legal health record. It is not the complete legal health record.[facility]
--- OUTSIDE RECORDS SUMMARY | 2025-02-14 12:11 | XMS_ITS | Clinical Summary ---
Author Organization [facility] Address [address] [place] [id number] Phone Care Team Providers Care Whizzer Operator Name Role Phone Jn Cardoza MD Unavailable Denys Henriquez MD Unavailable Antione Segura PA-C Primary Care Provider [phone] Rhett Cortez MD Unavailable Allergies Active Allergy Reactions Criticality Noted Date Comments Adhesive Rash Medium 05/04/2017 Iodinated Contrast Media Hives 05/04/2017 Latex, Natural Rubber Rash Low 05/04/2017 Morphine Sulfate Itching 02/11/2000 Pt reports she is not allergic to morphine. Pt has experience side effect vomit with morphine Procaine Hcl Other (See Comments) 02/11/2000 Hives-novacaine Medications aspirin 81 MG EC tablet Take 1 tablet by mouth every morning. 12/16/19 24 Active nebulizer accessories Kit 12/14/19 24 Active ipratropium-albuter oL (DUONEB) 0.5-3 mg (2.5 mg base)/3 mL nebulizer solution Take 3 mL by nebulization every 4 (four) hours. 12/17/19 24 Active VIOS AEROSOL DELIVERY SYSTEM Stefani 12/20/19 24 Active verapamiL (CALAN) 120 MG immediate release tablet Take 120 mg by mouth 2 (two) times a day. hold if sbp less than 120 12/28/19 24 Active DULoxetine (CYMBALTA) 60 MG capsuleIndications: Anxiety take one capsule by mouth twice a day 60 capsule 11 03/17/20 24 Active OXcarbazepine (TRILEPTAL) 300 MG tabletIndications:T rigeminal neuralgia of left side of face,Atypical facial pain [The details of the medication are not available because there are pending changes by a home health clinician.] 90 tablet 07/06/19 25 Active Additional Information Patient taking differently: 300 mgOral 2 times daily, Reported on 12/28/2024 prazosin (MINIPRESS) 2 MG capsule Take 1 capsule (2 mg total) by mouth nightly at bedtime. 30 capsule 11 08/09/19 25 Active calcium carbonate-vitamin D3 1,500 mg (600 mg elemental)-200 units Tab TAKE ONE TABLET BY MOUTH EVERY DAY 90 tablet 3 08/09/19 25 Active OXYGEN-AIR DELIVERY SYSTEMS MISC 2 L by Intranasal route continuous. 1L WITH SLEEP 2L WITH REST/ NO ACTIVITY 3L WITH EXERTION. 08/27/19 25 Active baclofen (LIORESAL) 20 MG tabletIndications:T rigeminal neuralgia of left side of face,Atypical facial pain Take 1 tablet (20 mg total) by mouth 3 (three) times a day. 90 tablet 11 10/07/19 25 Active roflumilast (DALIRESP) 500 mcg Tab Take 500 mcg by mouth daily. 10/11/19 25 Active valsartan (DIOVAN) 80 MG tablet Take 80 mg by mouth daily. hold is sbp less than 90 10/05/19 25 Active ciclopirox (PENLAC) 8 % solution Apply topically nightly at bedtime. Apply over nail and surrounding skin. Apply daily over previous coat. After seven (7) days, may remove with alcohol and continue cycle. 6.6 mL 1 10/13/19 25 Active butalbital-acetamin ophen-caffeine (FIORICET, ESGIC) 50-325-40 mg per tablet Take 1 tablet by mouth daily as needed for pain (specific location in comments). 8 tablet 10/13/19 25 Active diphenhydrAMINE (BENADRYL) 50 MG capsule Take 1 capsule (50 mg total) by mouth as directed. Take 1 hour before your appointment where you will be receiving IV contrast dye for your imaging study 1 capsule 10/13/19 25 Active hyoscyamine (ANASPAZ,LEVSIN) 0.125 mg tabletIndications:I rritable bowel syndrome with both constipation and diarrhea TAKE 1-2 TABLETS BY MOUTH EVERY 4 - 6 HOURS NEEDED FOR ABDOMINAL CRAMPS AND BLOATING PRN 60 tablet 2 11/08/19 25 Active atorvastatin (LIPITOR) 80 MG tabletIndications:M ixed hyperlipidemia TAKE ONE TABLET BY MOUTH EVERY DAY 30 tablet 2 12/12/19 25 Active ARIPiprazole (ABILIFY) 5 MG tablet Take 5 mg by mouth daily. 12/28/19 25 Active budesonide (PULMICORT) 0.5 mg/2 mL nebulizer solution Take 0.5 mg by nebulization daily. States does not have, per Dr. Henriquez/pulmo nology not on her medlist 12/28/19 25 Active omeprazole (PRILOSEC) 20 MG capsule Take 20 mg by mouth daily. 12/28/19 25 Active benzonatate (TESSALON) 100 MG capsuleIndications: Persistent cough Take 1 capsule (100 mg total) by mouth 3 (three) times a day as needed for cough. 20 capsule 12/29/19 25 Active LORazepam (ATIVAN) 0.5 MG tabletIndications:A nxiety Take 1 tablet (0.5 mg total) by mouth 2 (two) times a day as needed for anxiety. Must last one month. 14 tablet 12/29/19 25 Active ID-clobetasol propionate (20-577) 0.05 % topical ointment Apply 1 Application topically 2 (two) times a day. 01/03/20 25 Active albuterol 90 mcg/actuation inhaler Inhale 2 puffs into the lungs every 4 (four) hours as needed for wheezing. 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 360 capsule 01/24/20 25 2024 Active budesonide-glycopyr -formoterol (BREZTRI AEROSPHERE) 160-9-4.8 mcg/actuation inhaler Inhale 2 puffs into the lungs 2 (two) times a day. 01/27/20 25 Active oxyCODONE 5 MG immediate release tabletIndications:S acroiliitis, not elsewhere classified Take 1 tablet (5 mg total) by mouth every 12 (twelve) hours as needed for pain (specific location in comments). 28 tablet 02/05/20 25 2024 Active predniSONE (DELTASONE) 10 MG tablet Take 10 mg by mouth daily. 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 360 capsule 1 12/29/19 25 2024 Discontin ued(Reord er) predniSONE (DELTASONE) 10 MG tablet Take 10 mg by mouth daily. 40MG PO- , 30MG- 2 DAYS, 20MG- 2 DAYS, 10MG- 2 DAYS 01/09/20 25 2024 Discontin ued(No longer taking) oxyCODONE 5 MG immediate release tablet Take 1 tablet (5 mg total) by mouth every 12 (twelve) hours as needed for pain (specific location in comments). 28 tablet 01/15/20 25 2024 Discontin ued(Reord er) Active Problems Problem Noted Date Diagnosed Date Acute on chronic hypoxic respiratory failure Assessment & Plan (12/28/2024 6:54 PM EDT): Respiratory status improved on course of antibiotics and prednisone. Continue deep breathing and monitor for any worsened respiratory status. Monitor home spO2. Continue benzonatate prn. Continue O2 therapy as prescribed. Referral placed to [facility]mon[facility]. Persistent cough 12/28/2024 Trigeminal neuralgia 12/28/2024 Assessment & Plan (12/28/2024 6:57 PM EDT): Reviewed most recent neurology consult note. Refilled gabapentin. Chronic low back pain 12/28/2024 Assessment & Plan (12/28/2024 7:01 PM EDT): Continue oxycodone as prescribed. She will continue to advance physical activity as able. Consider formal course of PT thereafter. Acute congestive heart failure 11/29/2024 Assessment & Plan (12/28/2024 6:50 PM EDT): Continue follow up with Dr. Thurman. Assessment & Plan (11/29/2024 5:21 PM EDT): Patient mentions that she follows closely with cardiology Dr. Thurman. She was admitted previously for CHF and COPD exacerbations and required the use of Lasix. Patient notes that she went off the medication and stated that she did not need this refilled. She does carry history of COPD and is on continuous supplemental O2 ranging from 1 to 3 L. However over the course of the last few days that she started noticing increasing PRECIADO and lower extremity edema. She mentions that she has been using her compression stockings. She notes her last echocardiogram was in the last year and this was completed at [facility] through her roll builder -Her blood pressures have been not well-controlled and I have advised the patient to monitor her blood pressures twice daily at home. -I will start her on Lasix 40 mg p.o. daily -She is to decrease her salt intake -I have also asked her to reach out to her cardiology office so she can be seen -Patient was advised that if she starts to have increasing shortness of breath lower extremity edema or increased weight gain patient is to call 911 and go to the emergency department for further evaluation Allergic reaction to contrast dye 10/12/2024 Assessment & Plan (10/12/2024 5:06 PM EDT): Placed on Prednisone 50 mg 13 hours, 7 hours and 1 hour prior to IV contrast and Benadryl Benign essential hypertension 10/12/2024 Assessment & Plan (12/28/2024 6:55 PM EDT): Continue verapamil and valsartan. Discussed parameters for holding medication based upon SBP. Assessment & Plan (11/23/2024 12:39 PM EDT): History of hypertension currently on valsartan 80 mg daily and verapamil 100 mg twice daily, following with cardiology. She notes recent increase in blood pressure following a hospitalization for a COPD exacerbation. Blood pressure slightly elevated in the office today at 150/82. Of note, after chart review, she has been receiving VNA services who have been monitoring her blood pressure for many weeks and it has been within normal limits prior to her hospitalization. She is in no acute distress today, lungs were clear to auscultation without any wheezing, no concerns with her heart. I highly suspect that this is a transient elevation of her blood pressure due to recent COPD exacerbation where she was prescribed a steroid as well as nebulizer/inhalers. I suspect that her blood pressure should decrease, given that today was her last day of prednisone. I also discussed this with her PCP, Antione Segura PA-C who is in agreement. Patient will follow-up in approximately 4 weeks with her PCP to reassess her blood pressure to make sure that it normalizes. Discussed parameters of blood pressures including a systolic greater than 140 and a diastolic greater than 90. Advised the patient to continue monitoring her blood pressure at home and to log these numbers. Assessment & Plan (10/12/2024 5:06 PM EDT): Patient with a history of hypertension who is on verapamil 120 mg p.o. twice daily and valsartan 80 mg daily. She follows with Dr. Thurman at [facility]. Patient follows regularly with him. Her blood pressure is noted to be slightly elevated today of 152/82 which I feel is most likely due to anxiety and some of her breathing as she uses oxygen and that was along walk to the room. We will continue the valsartan 80 mg daily and verapamil 120 mg p.o. twice daily. Hypogammaglobulinemia 10/12/2024 Assessment & Plan (10/12/2024 5:06 PM EDT): Patient receives IVIG infusions monthly. Patient mentions that she does go with the infusions that with her next infusion being next week. NSTEMI (non-ST elevated myocardial infarction) 0 12/22/2023 Assessment & Plan (10/12/2024 5:06 PM EDT): With a history of 2 non-STEMI's who was hospitalized and follows with cardiology. Patient is maintained on verapamil 120 mg p.o. twice daily, valsartan 80 mg daily, atorvastatin 80 mg daily, and baby aspirin. She notes that she follows closely with cardiology and has an upcoming appointment scheduled. Assessment & Plan (01/05/2024 10:19 AM EDT): Does have outpatient stress test scheduled with [facility]. Discussed that results would indicate future management and whether that may include cardiac catheterization. I do not see record of this within her discharge summary from [facility] Assessment & Plan (12/22/2023 9:33 AM EDT): Diagnosed in the setting of COPD exacerbation. Continue statin and aspirin therapy. She does have follow-up visit scheduled with cardiology at which point they will discuss stress test. ED precautions discussed should chest pain recur Chronic obstructive pulmonary disease 03/11/2023 Assessment & Plan (11/07/2024 12:47 PM EDT): Patient with a history of COPD on supplemental O2. She mentions that she is on 1 L at sleep, 2 L at rest and 3 L on exertion. She follows closely with Dr. Henriquez out of [facility]. She is on Daliresp, DuoNebs and Trelegy as well as prednisone as needed. Patient was recently admitted on 10/29/2024 to 10/31/2024 for acute on chronic respiratory failure secondary to COPD exacerbation. During that timeframe patient underwent a CT which showed mild signs of emphysema no evidence of pneumonia. Patient underwent EKGs which showed no evidence of ST-T wave abnormalities. Patient was given azithromycin, Lasix, DuoNebs, Tessalon Perles, and Robitussin with codeine. She has since completed the course of Lasix and azithromycin. She has 5 more doses left of the prednisone taper. She has a scheduled appointment on 12/18 with her dehydrogenation operator. She is hoping to get this moved up. She is placed on the on-call list if there is a cancellation. On physical examination patient is not noted to have any wheezing or significant shortness of breath. She is currently back down to her baseline O2 requirements. She mentioned the last time her COPD flared was secondary to allergies. Assessment & Plan (10/12/2024 5:06 PM EDT): Patient with a history of COPD on supplemental O2. She mentions that she is on 1 L at sleep, 2 L at rest and 3 L on exertion. She follows closely with Dr. Henriquez out of [facility]. She is on Daliresp, DuoNebs and Trelegy as well as prednisone as needed. We will continue these medications and she will follow-up with Dr. Henriquez as scheduled. Assessment & Plan (06/19/2024 10:02 AM EST): Continues with recurrent hospitalizations and. Encouraged follow up with pulmonology. I am hopeful that she will begin treatment with IVIG soon now that this has been approved by insurance. Assessment & Plan (05/31/2024 9:13 AM EST): We again discussed importance of smoking/vaping cessation. I have encouraged her to pursue IVIG therapy with Dr. Henriquez's office as we discussed my concerns if treatment remains as it is now. I have encouraged her to consider pulmonary rehabilitation again in the future depending on response to infusions given concern for deconditioning, balance, and mobility. Assessment & Plan (05/01/2024 12:53 PM EST): Concern for recurrent hospitalizations discussed. Tells me that she has not been smoking for 4-5 weeks with the use of nicorette minis. Assessment & Plan (01/05/2024 10:21 AM EDT): Discussed my concern for recurrent hospitalizations and COPD exacerbations. She was encouraged to reach out to pulmonology as appointment is not scheduled until January. She remains pre-contemplative regarding vaping cessation. Continues with VNA services post-discharge. Assessment & Plan (12/22/2023 9:36 AM EDT): Continue prednisone as prescribed upon discharge from [facility]. Discussed concern for coronary requirement of nebulizer treatments and albuterol rescue inhaler. We also reviewed the importance of vaping cessation, she remains precontemplative. She does have follow-up appointment scheduled with Dr. Henriquez and has resumed VNA services. Assessment & Plan (11/29/2023 5:28 PM EDT): Recent admission for COPD exacerbation with acute hypoxemic respiratory failure. Current dehydrogenation operator is Dr. Henriquez at [facility]. She is interested in establishing care with [facility] pulmonology some of her specialists are within the [facility] for better continuity of care. She understands that she should continue with Dr. Sevilla until she is able to establish care with [facility] Pulmonary nodules 03/11/2023 Non-rheumatic mitral regurgitation 11/03/2017 Non-rheumatic tricuspid valve insufficiency 10/13 Anxiety 05/04/2017 Assessment & Plan (12/28/2024 6:50 PM EDT): Continue current lorazepam dosing. Defer long-term management to PMHNP. I discussed with her PMHNP re: dosage adjustment and I will refill for the next week. Assessment & Plan (10/12/2024 5:06 PM EDT): Patient with a history of anxiety and depression who has been on duloxetine 60 mg p.o. twice daily and initially was on Ativan 1 mg daily as needed however when she was seen Rosario the Ativan had been cut down to 0.5 mg which caused a lot of increased anxiety as the patient felt like she would run out of her medication because she would take up to 1 mg daily. I have explained to the patient that I believe that she should be seen and followed by a athletic events scorer which she does already have appointment scheduled with Jennifer on 10/16. Explained that she might increase or change her medications or add medications to her current regiment and therefore she will be the prescribing provider for her psychiatric medications. Assessment & Plan (06/19/2024 10:02 AM EST): Advised continuation of taper of Lorazepam, last prescription sent as lorazepam 0.5 mg, quantity 15 on 06/12/24. Assessment & Plan (05/31/2024 9:13 AM EST): Mutually agreed to decrease dose of lorazepam to 0.5 mg quantity 15 for next medication refill. We highlighted my continued concerns regarding polypharmacy and Mayra's report of decreased cognition Assessment & Plan (11/29/2023 5:25 PM EDT): Discussed increased anxiety related to health, breathing and chronic pain. She wondered about increased dose or frequency, however, we discussed how this is not appropriate given prescribed Mandaree for pain and risk of 911 EM[employer] SERVICES DISPATCHER depression. She is aware of these risks and agrees to continuing medication as prescribed. She understands that she can contact the office should she be interested in discussion of medication regimen. Assessment & Plan (11/01/2023 10:20 AM EDT): PHQ9 Flowsheet Row Office Visit from 10/28/2023 in [facility] PHQ-9 Total Score 24 Results reviewed with patient. We did discuss role of behavioral health consultation versus adjusting medications given significant symptoms and potential inadequate management with current regimen. She would like to consider this in the future. Cerebral aneurysm 05/04/2017 Assessment & Plan (10/12/2024 5:06 PM EDT): Patient with a history of an incidental finding of a 1.5 mm ZOIE aneurysm on MRA with her last MRI being back in 2019. Patient denies any recent symptoms however mentions that this was always monitored closely. She has never followed with neurosurgery but does follow with neurology. We will obtain an MRA brain for further evaluation. Patient has a known contrast allergy therefore preventative measures have been given such as taking prednisone 50 mg by mouth 13, 7 and a 1 hour prior to her receiving the IV contrast. She will also be given Benadryl. Assessment & Plan (10/12/2024 5:06 PM EDT): Patient with a history of an incidental finding of a 1.5 mm ZOIE aneurysm on MRA with her last MRI being back in 2019. Patient denies any recent symptoms however mentions that this was always monitored closely. She has never followed with neurosurgery but does follow with neurology. We will obtain an MRA brain for further evaluation. Patient has a known contrast allergy therefore preventative measures have been given such as taking prednisone 50 mg by mouth 13, 7 and a 1 hour prior to her receiving the IV contrast. She will also be given Benadryl. Irritable bowel syndrome 05/04/2017 Assessment & Plan (12/28/2024 6:55 PM EDT): Nausea and constipation resolved. Continue increased fluids. Hyperlipidemia 05/04/2017 Assessment & Plan (10/12/2024 5:06 PM EDT): Continue atorvastatin 80 mg daily Sacroiliitis, not elsewhere classified 7 Assessment & Plan (10/12/2024 5:06 PM EDT): Patient with a history of low back pain and sacroiliitis who has undergone previous laminectomy and discectomy by Dr. Dupont. She still has chronic low back pain requiring the use of baclofen 20 mg p.o. 3 times daily and she was on Mandaree however during her last hospital stay this was transitioned to oxycodone which has been providing her more relief. I did discuss with her with regards to changing the medication and stated that I would change it if it was longer periods of time in between the doses which she is agreeable to as she felt that the oxycodone worked better for pain control. -[place] was verified. Patient signed an controlled substance agreement. -Oxycodone 5 mg p.o. every 12 hours as needed dispense 28. -Continue baclofen 20 mg p.o. 3 times daily Nightmares associated with c hronic post-traumatic stress disorder 05/04/2017 Assessment & Plan (10/12/2024 5:06 PM EDT): Continue prazosin 2 mg nightly Resolved Problems Problem Noted Date Diagnosed Date Resolved Date Chronic bronchitis 10/12/2024 Current every day cannabis vaping 12/22/2023 10/12/2024 Assessment & Plan (06/19/2024 10:02 AM EST): Cessation advised Assessment & Plan (05/31/2024 9:13 AM EST): Cessation discussed, notes that she is currently vaping 2-3 hit per day which she notes is significantly decreased from previous. Harm reduction and alternative forms of cannabis discussed. Assessment & Plan (03/01/2024 10:10 AM EDT): Advised smoking cessation, remains pre-contemplative at this time Assessment & Plan (12/22/2023 9:35 AM EDT): Discussed risks of cannabis vaping especially in the setting of COPD exacerbation. Cessation encouraged, she remains precontemplative at this time Dysphagia 11/29/2023 10/12/2024 Assessment & Plan (11/29/2023 5:27 PM EDT): Abnormal barium swallow study and speech evaluation when inpatient at [facility]. Discussed referral to gastroenterology discussed potential of endoscopy Hypoxemia requiring supplemental oxygen 03/11/2023 10/12/2024 Assessment & Plan (05/31/2024 9:13 AM EST): Continue supplemental oxygen Assessment & Plan (05/01/2024 12:54 PM EST): Current oxygen requirements include 3L with exertion, 2L when awake, and 1L with sleep Assessment & Plan (03/01/2024 10:09 AM EDT): Current oxygen requirements: 3L at rest and 4L with acitivty. She does have follow up scheduled with pulmonology and I do think that she would benefit from pulmonary rehab although she is not interested at this time. Discussed concern for recurrent hospitalizations and need for smoking cessation. Assessment & Plan (01/05/2024 10:23 AM EDT): She has weaned off of supplemental oxygen following latest admission. Remains on current prednisone taper. Assessment & Plan (11/01/2023 10:21 AM EDT): Continue with pulmonary rehab as scheduled. She does note significant improvement in endurance and pulmonary function since beginning in September. Advised discussing increase in musculoskeletal pain with rehab effort to potentially modify current regimen so that it does not increase pain Assessment & Plan (08/01/2023 5:17 PM EST): Currently not using supplemental oxygen due to concern for facial pain Assessment & Plan (06/25/2023 5:42 PM EST): Continue follow-up with Dr. 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 Assessment & Plan (05/01/2024 12:57 PM EST): Discussed concern for dual prescriptions for hydrocodone and lorazepam. Current prescriptions include hydrocodone 5 mg quantity 35 per month and lorazepam 1 mg tablet quantity 15 per month. Mutually agreed to reduce amount of hydrocodone to 28 per month upon next refill with goal for continued taper Assessment & Plan (03/01/2024 10:14 AM EDT): Mayra wonders if increased quantity of hydrocodone could be sent to pharmacy per month. Current prescription for quantity 35 per month. We discussed concern for [employer] DISPATCHER depression and need to minimize use especially given recent hospitalizations related to hypoxia. She demonstrated understanding and mutually agreed to continue as prescribed and to minimize use. PTSD (post-traumatic stress disorder) 02/17/2019 10/12/2024 Assessment & Plan (09/15/2024 11:56 AM EDT): Refill placed for lorazepam. Provided patient with contact information for a different psychologist who may be able to see her sooner. Discussed risks of use including addiction, risk of fall , confusion, dementia. 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 This will likely offer better pain relief than the hydrocodone. Discussed risk of respiratory depression, which pt is aware of.She has a history of drug addiction and understands the dangers of narcotic medication in this setting. We will monitor closely. Patient has not had spine imaging in several years and did not mention any ongoing spine medicine management. At this time it may be appropriate to pursue repeat imaging/evaluation. Will discuss this further with patient. Acute pain of right knee 11/03/201711/2018 Chronic tension headaches 05/04/2017 Parotid mass 05/04/2017 10/12/2024 Nicotine dependence, cigaret reab, uncomplicated 05/04/2017 10/12/2024 Assessment & Plan (03/01/2024 10:10 AM EDT): Advised smoking cessation, remains pre-contemplative at this time Degenerative arthritis of te mporomandibular joint 05/04/2017 10/12/2024 Encounters Date Type Department Care Team Description 02/14/2025 Documentation [facility] Internal Medicine [address] [place] [address] Antione Segura PA-C 02/13/2025 Telephone [facility] Medicine [address] [place] [address] Antione Segura PA-C Appointment (Tcm+discharged 02/09/25 ) 02/12/2025 12:30 PM EDT Home Care Visit [facility] [address] [place] [phone] Shakira Hand, RN SN OASIS RESUMPTION OF CARE (VERONIKA) 02/11/2025 Home [facility] Visit [facility] [address] [place] [address] Maritza Calix, RN CASE COMMUNICATION 02/09/2025 Home Health Resumption of Care Planning [facility] [address] [place] [address] Koki Simons RN 02/08/2025 1:00 AM EDT Home Care Visit [facility] [address] [place] [address] Shakira Hand RN SN OASIS TRANSFER 02/05/2025 Home Care Visit [facility] [address] [place] [address] Krysta Charles CASE COMMUNICATION 02/01/2025 3:30 PM EDT [facility] Visit [facility] [address] [place] [address] Yane Lanza, PT PT HOME VISIT 02/01/2025 4:00 AM EDT Home Care Visit [facility] [address] [place] [address] Krysta Charles HOME VISIT 01/31/2025 1:30 PM EDT Home [facility] Visit [facility] [address] [place] [address] Shakira Hand, HUA SN HOME VISIT 01/29/2025 3:30 PM EDT Home Care Visit [facility] [address] [place] [address] Yane Lanza, PT PT HOME VISIT 01/29/2025 8:15 AM EDT Home Care Visit [facility] [address] [place] [address] Krysta Charles HOME VISIT 01/29/2025 [facility] [address] [place] [address] Antione Segura PA-C Medication Refill 01/29/2025 Telephone [facility] [address], [place] [phone] Antione Segura PA-C Request For Order(s) 01/26/2025 Home Care Visit [facility] [address], [place] [phone] Karlene Berumen, RN TELEPHONE ENCOUNTER 01/25/2025 2:30 PM EDT Home Care Visit [facility] [address] [place] [address] Yane Lanza, PT PT EVALUATION 01/25/2025 4:00 AM EDT Home Care Visit [facility] [address], [place] [phone] Krysta Charles PAPER COATING SUPERVISOR HOME VISIT 01/25/2025 1:00 AM EDT Home Care Visit [facility] [address] [place] [address] Karlene Berumen, HUA SN HOME VISIT 01/24/2025 Telephone [facility] [address] [place] [address] Antione Segura PA-C PFT 01/24/2025 Telephone [facility] [address] [place] [address] Eliana Prabhakar CNP Breast Cancer Screening 01/23/2025 9:00 AM EDT Home Care Visit [facility] [address], [place] [phone] Rich Mariscal LPN HOME VISIT 01/23/2025 4:30 AM EDT Home Care Visit [facility] [address], [place] [phone] Krysta Charles PAPER COATING SUPERVISOR HOME VISIT 01/22/2025 Home Care Visit [facility] [address] [place] [phone] Yane Lanza, PT TELEPHONE ENCOUNTER 01/22/2025 Refill [facility] [address] [place] [address] Antione Segura PA-C Medication Refill 01/18/2025 11:00 AM EDT Home Care Visit [facility] [address] [place] [phone] Shakira Hand RN SN HOME VISIT 01/18/2025 9:15 AM EDT Home Care Visit [facility] [address] [place] [phone] Krysta Charles PAPER COATING SUPERVISOR HOME VISIT 01/18/2025 Telephone [facility] [address] [place] [address] Antione Segura PA-C Medication Question (Gabapentin) 01/18/2025 Episode Documentation Update [facility] [address] [place] [phone] Mayra Burton 01/17/2025 2:30 PM EDT Home Care Visit [facility] [address] [place] [phone] Krysta Charles PAPER COATING SUPERVISOR HOME VISIT 01/17/2025 Telephone [facility] [address] [place] [address] Elida Lindquist, HUA VNA Orders 01/15/2025 Episode Documentation Update [facility] [address] [place] [phone] Mayra Burton 01/14/2025 Home Care Visit [facility] [address] [place] [phone] Raya Howard, PT TELEPHONE ENCOUNTER 01/12/2025 Refill [facility] [address], [place] [phone] Antione Segura PA-C Medication Refill 01/12/2025 Telephone [facility] [address], [place] [phone] Antione Segura PA-C VNA Orders 01/11/2025 10:00 AM EDT Home [facility] Visit [facility] [address] [place] [address] Shakira Hand, HUA SN HOME VISIT 01/11/2025 Episode Documentation Update [facility] [address] [place] [address] Mayra Burton 01/10/2025 12:30 PM EDT Home Care Visit [facility] [address] [place] [address] Shakira Hand, HUA SN OASIS RESUMPTION OF CARE (VERONIKA) 01/10/2025 Telephone [facility] [address], [place] [phone] Antione Segura PA-C Referral (Pulmonology referral update to urgent) 01/09/2025 3:00 PM EDT Home [facility] Visit [facility] [address] [place] [address] Shakira Hand, HUA SN OASIS TRANSFER 01/09/2025 Home Health Resumption of Care Planning [facility] [address] [place] [phone] Koki Simons RN 01/04/2025 Orders Only [facility] [address], [place] [phone] Omar Cooley MD 01/04/2025 Telephone [facility] [address], [place] [phone] Antione Segura PA-C Shortness of Breath 01/04/2025 Telephone [facility] [address] [place] [address] Brittnee Vigil MD 01/02/2025 1:00 PM EDT Home Care Visit [facility] [address] [place] [phone] Shakira Hand RN SN HOME VISIT 01/02/2025 Telephone [facility] [address] [place] [address] Eliana Prabhakar CNP Follow-up 01/01/2025 Home Care Visit [facility] [address] [place] [phone] Claudia Charles, PT PT EVALUATION 12/29/2024 12:00 PM EDT Home Care Visit [facility] [address] [place] [phone] Shakira Hand RN SN HOME VISIT 12/28/2024 3:00 PM EDT Office Visit [facility] [address] [place] [address] Eliana Prabhakar CNP Acute on chronic hypoxic respiratory failure (Primary Dx); Persistent cough; Anxiety; Trigeminal neuralgia; 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; Occipital neuralgia of left side; Acute congestive heart failure, unspecified heart failure type; Benign essential hypertension; Irritable bowel syndrome with both constipation and diarrhea; Chronic low back pain, unspecified back pain laterality, unspecified whether sciatica present 12/28/2024 Telephone [facility] [address] [place] [address] Antione Segura PA-C VNA Orders 12/28/2024 Plan of Care Documentation [facility] [address] [place] [phone] 12/27/2024 3:00 PM EDT Home [facility] Visit [facility] [address] [place] [address] Shakira Hand RN SN OASIS START OF CARE (SOC) 12/26/2024 Refill [facility] [address] [place] [address] Antione Segura PA-C Medication Refill 12/26/2024 Documentation [facility] [address] [place] [address] Antione Segura PA-C 12/25/2024 Home Care Visit [facility] [address] [place] [address] Lelo Roa RN NON ADMIT HOME HEALTH VISIT 12/25/2024 Orders Only [facility] [address] [place] [phone] Homehealth, Interface MD Lenora 12/23/2024 Home Care Visit [facility] [address] [place] [phone] Maritza Calix, HUA CASE COMMUNICATION 12/22/2024 Orders Only [facility] [address], [place] [phone] Provider, MD Omar 12/20/2024 Telephone [facility] [address], [place] [phone] Antione Segura PA-C TCM Visit (Unable to schedule) 12/18/2024 Orders Only [facility] [address] [place] [phone] Homehealth, Interface MD Lenora 12/18/2024 Home Care Visit [facility] [address] [place] [phone] Shakira Hand RN SN NON OASIS DISCHARGE NON VISIT/TELEPHONE 12/14/2024 5:35 AM EDT - 12/14/2024 11:59 PM EDT Hospital Encounter [facility] [address] [place] [address] Nba Roberson MD Discharge Disposition: Home or Self Care 12/11/2024 Home Care Visit [facility] [address] [place] [phone] Lelo Roa, RN CASE COMMUNICATION 12/11/2024 Refill [facility] [address] [place] [address] Sirisha Huertas, AGA Medication Refill 12/09/2024 [facility] [address] [place] [phone] Maritza Calix, HUA CASE COMMUNICATION 12/08/2024 Home Care Visit [facility] [address] [place] [address] Lelo Roa RN TELEPHONE ENCOUNTER 12/06/2024 Home Health Resumption of Care Planning [facility] [address] [place] [phone] Diana Torres RN 12/01/2024 Home Care Visit [facility] [address] [place] [phone] Lelo Roa, RN SN OASIS TRANSFER 12/01/2024 Orders Only [facility] [address] [place] [address] ProviderOmar MD 11/29/2024 4:40 PM EDT Office Visit [facility] [address] [place] [address] Antione Segura PA-C Acute congestive heart failure, unspecified heart failure type (Primary Dx) 11/28/2024 Telephone [facility] [address] [place] [address] Antione Segura PA-C Shortness of Breath; Leg Swelling 11/23/2024 11:40 AM EDT Office Visit [facility] [address] [place] [address] Sue Springer PA-C Benign essential hypertension (Primary Dx) 11/23/2024 Telephone [facility] [address], [place] [phone] Antione Segura PA-C Referral 11/23/2024 Telephone [facility] [address], [place] [phone] Antione Segura PA-C Hypertension 11/22/2024 5:30 AM EDT Home Care Visit [facility] [address] [place] [phone] Rich Mariscal IMAGING AIDE HOME VISIT 11/22/[address] [address] Maribel London TCM Visit; feet cramping 11/22/2024 Home Care Visit [facility] [address] [place] [phone] Samson Nolan Jr. PAPER COATING SUPERVISOR HOME VISIT 11/20/2024 Orders Only [facility] [address], [place] [phone] ProviderOmar MD 11/17/2024 Refill [facility] [address], [place] [phone] Antione Segura PA-C 11/16/2024 Telephone [facility] [address], [place] [phone] Antione Segura PA-C Results 11/15/2024 Home Care Visit [facility] [address] [place] [phone] Samson Nolan Jr. PAPER COATING SUPERVISOR HOME VISIT from Last 3 Months Immunizations Immunization Administration Dates Next Due COVID-19 (Pre-04/05) Pfizer Vaccine, mRNA, PF 10/02/2020,09/11/2020 INFLUENZA, SPLIT VIRUS, TRIVALENT PF 02/29/2024, 06/20/2015 Influenza Quadrivalent Prese rvative Free IM 07/29/2023,02/27/2022,05/06/2021,02/21,04/01/2018 PPD Test 08/17/2018,12/23/2015,11/13/2014 Pneumococcal conjugate PCV20 02/29/2024 Pneumococcal polysaccharide PPSV23 02/22/2020 Td (adult) 5 Lf Tetanus Toxo id, PF, Adsorbed 12/29/2013 Family History Medical History Relation Comments Stroke Brother CV disease Father Aneurysm Maternal Uncle Aneurysm Mother CV disease Mother Hypertension Mother Stroke Mother Diabetes mellitus Paternal Grandfather Cancer Paternal Grandmother Diabetes mellitus Paternal Grandmother CV disease Sibling 1 Cancer Sibling 1 Hypertension Sibling 1 Breast cancer Sister Relation Status Comments Brother Alive Father Maternal Uncle Mother Paternal Grandfather Paternal Grandmother Sibling 1 Sibling 2 Sibling 3 Sister Social History Tobacco Use Types Packs/Day Years [...] high school, GED, job training, learning the [place] language, technical skills, or developing parenting skills)? [...] Orientation Straight 11/13/2019 12 :26 PM EDT Last Filed Vital Signs Vital Sign Reading Time Taken Comments Blood Pressure 152/78 02/12/2025 12:33 PM EDT Pulse 81 02/12/2025 12:33 PM EDT Temperature 36.8 C (98.3 F) 02/12/2025 12:33 PM EDT Respiratory Rate 14 02/01/2025 3:15 PM EDT Oxygen Saturation 96% 02/12/2025 12:33 PM EDT Inhaled Oxygen Concentration - - Weight 95.7 kg (211 lb) 12/28/2024 2:55 PM EDT Height 156.2 cm (5' 1.5 ) 12/28/2024 2:55 PM EDT Body Mass Index 39.23 12/28/2024 2:55 PM EDT Plan of Treatment Upcoming Encounters Date Type Department Care Team (Late st Contact Info) Description 02/14/2025 1:30 PM EDT Home Care Visit [facility] [address] [place] [phone] Shakira Hand RN [address] [place] [address] 02/15/2025 9:00 AM EDT Office Visit [facility] [address] [place] [address] Antione Segura PA-C [address] [place] [address] [email or web address] 02/21/2025 1:00 AM EDT Appointment [facility] [address] [place] [phone] Shakira Hand RN [address] [place] [address] 04/17/2025 1:00 PM EST Office Visit [facility] [address] [place] [address] Brittnee Vigil MD [address] [place] [phone] 06/25/2025 9:30 AM EST Telemedicine [facility] Neu[facility] [address] [place] [address] Jn Cardoza MD [address] [facility], 2nd [place] [address] [email or web address] Health Maintenance Due Date Last Done Comments COLOGUARD 01/09/2008 FIT TEST 01/09/2008 FOBT 01/09/2008 SIGMOIDOSCOPY 01/09/2008 VIRTUAL COLONOSCOPY 01/09/2008 ZOSTER VACCINES (1 of 2) 2013 RSV VACCINE (1 - Risk 60-74 years 1-dose series) 2023 PAP SMEAR 02/21/2023 02/22/2020, 02/12, 08/27/2014 LUNG CANCER SCREENING (LDCT Only) 08/28/2023 08/27/2022, 09/05/2021, 12/01/2018 COLONOSCOPY 12/05/2023 12/04/2013, 12/04/2013 COLORECTAL CANCER SCREENING 12/05/2023 Adult Td,Tdap Booster 12/30/2023 12/29/2013 INFLUENZA VACCINE (#1) 2025 , 07/29/2023, 02/27/2022, Additional history exists COVID-19 VACCINE ( season) 2025 07/18/2021, 10/02/2020, 09/11/2020 REPEAT PHQ 03/03/2025 01/31/2025, 01/31/2025 MAMMOGRAM 05/26/2025 05/26/2023, 08/13, 12/09/2017 BLOOD PRESSURE 08/12/2025 02/12/2025 SMOKING Hx and SMOKELESS TOBACCO SCREENING 12/28/2025 12/28/2024 DEPRESSION SCREENING 01/31/2026 01/31/2025, 02/01/20 25 CREATININE LEVEL 02/08/2026 02/08/2025, 03/2025, 12/14/2024, Additional history exists POTASSIUM LEVEL 02/08/2026 02/08/2025, 12/12, 12/14/2024, Additional history exists LIPID PANEL 08/22/2026 08/22/2021, 08/12, 02/26/2020, Additional history exists SCREENING FOR DIABETES 12/15/2027 12/14/2024, 2021 HEPATITIS C SCREENING Completed 05/25/2019, 019 HIV ONE-TIME SCREENING (18-65 YEARS) Completed 05/25/2019 PNEUMOCOCCAL VACCINES (50+ years) Completed 02/29/2024, 02/22/2020 HEPATITIS A VACCINES Aged Out No long er eligible based on patient's age to complete this topic HIB VACCINES Aged Out No longer eligi ble based on patient's age to complete this topic MENINGOCOCCAL VACCINES (ACWY) Aged Out No longer eligible based on patient's age to complete this topic MENINGOCOCCAL VACCINES (B) Aged Out N o longer eligible based on patient's age to complete this topic Medical Devices Not on file Procedures Procedure Name Priority Date/Time Associated Diagnosis Comments OUTSIDE POTASSIUM LEVEL Routine 02/08/2025 OUTSIDE SERUM CREATININE LEVEL Routine 02/08/2025 OUTSIDE ALT LEVEL Routine 02/05/2025 OUTSIDE XR CHEST REPORT ONLY Routine 01/04/2025 1:21 PM EDT OUTSIDE IMAGING Routine 12/21/2024 1:01 PM EDT OUTSIDE IMAGING Routine 12/21/2024 10:25 AM EDT OUTSIDE IMAGING Routine 12/21/2024 8:15 AM EDT OUTSIDE IMAGING Routine 12/21/2024 8:12 AM EDT OUTSIDE POTASSIUM LEVEL Routine 12/21/2024 OUTSIDE ALT LEVEL Routine 12/21/2024 OUTSIDE SERUM CREATININE LEVEL Routine 12/21/2024 COMPREHENSIVE METABOLIC PANEL Routine 12/14/2024 4:45 AM EDT 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 Trigeminal neuralgia of left side of face CBC AND DIFFERENTIAL Routine 12/14/2024 4:45 AM EDT 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 Trigeminal neuralgia of left side of face OUTSIDE CT HEAD/NECK REPORT ONLY Routine 12/01/2024 4:[address] ABD/PELVIS REPORT ONLY Routine 12/01/2024 4:[address] CHEST REPORT ONLY Routine 11/30/2024 3:48 PM EDT OUTSIDE XR CHEST REPORT ONLY Routine 11/30/2024 3:38 PM EDT OUTSIDE IMAGING Routine 11/18/2024 10:58 AM EDT OUTSIDE XR CHEST REPORT ONLY Routine 11/18/2024 9:13 AM EDT OUTSIDE XR CHEST REPORT ONLY Routine 11/18/2024 9:09 AM EDT BI MAMMOGRAM SCREENING WITH TOMOSYNTHESIS WITH CAD (BILATERAL) Routine 05/26/2023 10:14 AM EST Encounter for screening mammogram for malignant neoplasm of breast CT CHEST LUNG CANCER SCREENING ANNUAL Routine 08/27/2022 9:07 AM EDT Nicotine dependence, cigarettes, uncomplicated LIPID PANEL Routine 08/22/2021 8:13 AM EST Mixed hyperlipidemia PAP TEST Routine 02/22/2020 12:00 AM EDT HEPATITIS C ANTIBODY, QUALITATIVE Routine 05/25/2019 10:24 AM EST Need for hepatitis C screening test HM COLONOSCOPY FOR RESULT ENTRY ONLY Routine 12/04/2013 from Last 3 Months or Most Recently Relevant to Health Maintenance Results * Outside Potassium Level (02/08/2025) Only the most recent of2 resultswithin the time period is included. Potassium level - External 3.8 3.4 - 5.0 mmol/L us Historical Provider LAB BLOOD ORDERABLES Mariya l Result * (ABNORMAL) Outside Serum Creatinine Level (02/08/2025) Only the most recent of2 resultswithin the time period is included. Creatinine, serum - External 0.66(A) 0.8 - 1.3 mg/dL us Historical Provider LAB BLOOD ORDERABLES Mariya l Result * Outside ALT Level (02/05/2025) Only the most recent of2 resultswithin the time period is included. ALT - External 15 5 - 30 U/L Result [facility] Provider LAB BLOOD ORDERABLES Mariya l Result * Outside XR??Chest Report Only (01/04/2025 1:21 PM EDT) [facility] Provider IMG XR CHEST Final Res ult * Outside Imaging Report Only (12/21/2024 1:01 PM EDT) Result [facility] Provider IMG XR CHEST Final Res ult * Outside Imaging Report Only (12/21/2024 10:25 AM EDT) Result [facility] Provider IMG XR CHEST Final Res ult * Outside Imaging Report Only (12/21/2024 8:15 AM EDT) Result [facility] Provider IMG XR CHEST Final Res ult * Outside Imaging Report Only (12/21/2024 8:12 AM EDT) Result [facility] Provider IMG XR CHEST Final Res ult * (ABNORMAL) Comprehensive metabolic panel (12/14/2024 4:45 AM EDT) SODIUM 140 133 - 146 mmol/L [facility] POTASSIUM 3.8 3.3 - 5.1 mmol/L [facility] CHLORIDE 97 96 - 108 mmol/L [facility] CO2 34 21 - 35 mmol/L [facility] BUN 19 6 - 19 mg/dL [facility] CREATININE 0.70 0.5 - 1.5 mg/dL [facility] GLUCOSE 87 70 - 99 mg/dL [facility] ALBUMIN 4.0 3.9 - 4.8 g/dL [facility] TOTAL PROTEIN 6.2(L) 6.5 - 8.0 g/dL [facility] CALCIUM 9.8 8.4 - 10.3 mg/dL [facility] ALKALINE PHOSPHATASE 63 39 - 117 U/L [facility] TOTAL BILIRUBIN <0.2 0.0 - 1.2 mg/dL [facility] AST 11 0 - 37 U/L [facility] ALT 10 0 - 40 U/L [facility] GLOBULIN 2.2 1 - 4.8 g/dL [facility] EGFR 98 >59 mL/min/1.7 3m2 [facility] Comment:Estimated glomerular filtration rate calculated using the CKD-EPI refit equation. ANION GAP 13 10 - 20 mmol/L [facility] Blood 12/14/2024 4:45 AM EDT 12/14/2024 6:03 AM EDT us Jn Cardoza MD LAB BLOOD ORDERABLES Final Resul t [facility] [address] [place] [address] * (ABNORMAL) CBC and differential (12/14/2024 4:45 AM EDT) WBC 14.11(H) 4.00 - 11.00 K/uL [facility] RBC 3.99(L) 4.00 - 5.20 M/uL [facility] HGB 12.7 12.0 - 16.0 g/dL [facility] HCT 40.1 36.0 - 46.0 % [facility] PLT 394 150 - 450 K/uL [facility] MCV 100.5(H) 80.0 - 100.0 fL [facility] MCH 31.8(H) 27.0 - 31.0 pg [facility] MCHC 31.7(L) 32.0 - 36.0 g/dL [facility] RDW 13.5 11.5 - 14.5 % [facility] MPV 9.2 8.4 - 12.0 fL [facility] NRBC 0.00 0.00 /100 WBCs [facility] ABSOLUTE NRBC 0.00 0.00 K/uL [facility] DIFF METHOD Auto [facility] NEUTS 72.2 48.0 - 76.0 % [facility] LYMPHS 15.0(L) 18.0 - 41.0 % [facility] MONOS 9.9 4.0 - 11.0 % [facility] EOS 1.4 0.0 - 5.0 % [facility] BASOS 0.4 0.0 - 1.5 % [facility] Granulocytes, immature (%) 1.1(H) 0.0 - 0.9 % [facility] ABSOLUTE NEUTS 10.20(H) 1.92 - 7.60 K/uL [facility] ABSOLUTE LYMPHS 2.11 0.72 - 4.10 K/uL [facility] ABSOLUTE MONOS 1.39(H) 0.16 - 1.10 K/uL [facility] ABSOLUTE EOS 0.20 0.00 - 0.50 K/uL [facility] ABSOLUTE BASOS 0.05 0.00 - 0.15 K/uL [facility] Granulocytes, immature 0.16(H) 0.00 - 0.09 K/uL [facility] Blood 12/14/2024 4:45 AM EDT 12/14/2024 6:03 AM EDT Result [facility] Jn Cardoza MD LAB BLOOD ORDERABLES Final Resul t [address] [address] * Outside CT Head/Neck Report Only (12/01/2024 4:44 PM EDT) Historical Provider IMMadyson CT HEAD/NECK Final Re sult * Outside CT Abd/pelvis Report Only (12/01/2024 4:26 PM EDT) Historical Provider IMMadyson CT ABD/PELVIS Final R esult * Outside CT??Chest Report Only (11/30/2024 3:48 PM EDT) Historical Provider IMMadyson CT CHEST Final Res ult * Outside XR??Chest Report Only (11/30/2024 3:38 PM EDT) Historical Provider MD DAWKINS XR CHEST Final Res ult * Outside Imaging Report Only (11/18/2024 10:58 AM EDT) us Historical Provider IMG XR CHEST Final Res ult * Outside XR??Chest Report Only (11/18/2024 9:13 AM EDT) us Historical Provider IMG XR CHEST Final Res ult * Outside XR??Chest Report Only (11/18/2024 9:09 AM EDT) us Historical Provider MD DAWKINS XR CHEST Final Res ult * BI MAMMOGRAM SCREENING WITH TOMOSYNTHESIS WITH CAD (BILATERAL) (05/26/2023 10:14 AM EST) Anatomical Region Laterality Modality Breast Left, Breast Right, Breast Bilateral Bila teral Mammography 05/28/2023 8:42 AM EST Impressions 05/29/2023 10:36 AM EST No mammographic signs of malignancy. Annual screening is recommended. BI-RADS CATEGORY: 2 - Benign finding. DENSITY: There are scattered fibroglandular densities. Narrative 05/29/2023 10:36 AM EST Bilateral mammography is performed in conjunction with computed aided detection. 3-D tomography along with 2-D C view imaging was also performed. Compared with prior mammogram 09/01/2021. No suspicious masses, areas of architectural distortion or suspicious microcalcifications. A few diffusely distributed bilateral calcifications are stable. Procedure Note Kulwant Kemp MD - 05/29/2023 Bilateral mammography is performed in conjunction with computed aideddetection. 3-D tomography along with 2-D C view imaging was alsoperformed. Compared with prior mammogram 09/01/2021. No suspicious masses, areas of architectural distortion or suspiciousmicrocalcifications. A few diffusely distributed bilateral calcificationsare stable. IMPRESSION: No mammographic signs of malignancy. Annual screening is recommended. BI-RADS CATEGORY: 2 - Benign finding. DENSITY: There are scattered fibroglandular densities. Jennifer Jose Duke BENDING FRAME OPERATOR IMG MG EXAMS Final Result * CT CHEST LUNG CANCER SCREENING ANNUAL (08/27/2022 9:07 AM EDT) Anatomical Region Laterality Modality Chest Computed Tomogra phy 08/28/2022 9:47 AM EDT Impressions 08/28/2022 10:01 AM EDT Similar scattered sub-5 mm pulmonary nodules. No definite new pulmonary nodules demonstrated. Lung-RADS Category: 2. Multiple pulmonary nodules. RECOMMENDATIONS: Continue annual Lung Cancer Screening Chest CT examination if patient meets eligibility criteria. To order, please type CT CHEST SCREENING (CT.TH.CHESTSCR) and select ANNUAL for patient program status. Explanation of the Lung-RADS categories can be found at: [email or web address] Narrative 08/28/2022 10:[address] CHEST LUNG CANCER SCREENING ANNUAL TECHNIQUE: Low dose multidetector CT of the chest was performed without intravenous contrast using tailored dose modulation techniques. COMPARISON: CT chest 12/01/2018 FINDINGS: Devices/Tubes/Lines: None. Lungs: There is redemonstration of a 4 mm right upper lobe subpleural nodule (4:85) and a 2 mm subpleural left lower lobe nodule (4:243). No new pulmonary nodules demonstrated. Similar small bilateral abimbola-fissural nodules. Persistent mild bronchial wall thickening. No focal consolidation. The central airways are clear Pleura: No pleural effusion or pneumothorax. Mediastinum: Mild atherosclerotic calcification of the aorta No thyroid nodules. The heart is similar in size. There is no pericardial effusion Mild amount of coronary calcifications. Lymph Nodes: No enlarged supraclavicular, axillary, mediastinal, or hilar lymph nodes. Upper Abdomen: Absence of intravenous contrast and low dose technique limits sensitivity for detecting small lesions, solid organ and vascular findings. No abnormality detected in the visualized upper abdomen. Chest Wall: No chest wall mass. Bones: Multilevel degenerative changes of the spine. Similar sclerotic lesion at T5. No destructive osseous lesions Procedure Note Jenny Celestin MD - 03/17/2023 CT CHEST LUNG CANCER SCREENING ANNUAL TECHNIQUE: Low dose multidetector CT of the chest was performed withoutintravenous contrast using tailored dose modulation techniques. COMPARISON: CT chest 12/01/2018 FINDINGS: Devices/Tubes/Lines: None. Lungs: There is redemonstration of a 4 mm right upper lobe subpleuralnodule (4:85) and a 2 mm subpleural left lower lobe nodule (4:243). No newpulmonary nodules demonstrated. Similar small bilateral abimbola-fissuralnodules. Persistent mild bronchial wall thickening. No focalconsolidation. The central airways are clear Pleura: No pleural effusion or pneumothorax. Mediastinum: Mild atherosclerotic calcification of the aorta No thyroidnodules. The heart is similar in size. There is no pericardial effusionMild amount of coronary calcifications. Lymph Nodes: No enlarged supraclavicular, axillary, mediastinal, or hilarlymph nodes. Upper Abdomen: Absence of intravenous contrast and low dose techniquelimits sensitivity for detecting small lesions, solid organ and vascularfindings. No abnormality detected in the visualized upper abdomen. Chest Wall: No chest wall mass. Bones: Multilevel degenerative changes of the spine. Similar scleroticlesion at T5. No destructive osseous lesions IMPRESSION: Similar scattered sub-5 mm pulmonary nodules. No definite new pulmonarynodules demonstrated. Lung-RADS Category: 2. Multiple pulmonary nodules. RECOMMENDATIONS: Continue annual Lung Cancer Screening Chest CT examination if patientmeets eligibility criteria. To order, please type CT CHEST SCREENING (CT.TH.CHESTSCR) and selectANNUAL for patient program status. Explanation of the Lung-RADS categories can be found at:[email or web address] Lang Germain MD [facility] CT CHEST Final Result * (ABNORMAL) Lipid panel (08/22/2021 8:13 AM EST) HDL 54 mg/dL [facility] Comment: Interpretation <40 mg/dL: Low HDL cholesterol (major risk factor for CHD) Greater than or equal to 60 mg/dL: High HDL cholesterol ( negative risk factor for CHD) HDL - cholesterol is affected by a number of factors, e.g. smoking, excerise, hormones, sex and age. CHOLESTEROL 237 0 - 240 mg/dL [facility] TRIGLYCERIDES 201(H) 30 - 160 mg/dL [facility] LDL 143(H) 50 - 129 mg/dL [facility] Comment: LDL levels in terms of risk for coronary heart disease: <100 mg/dL: Optimal 100-129 mg/dL: Near or above optimal 130-159 mg/dL: Borderline high 160-189 mg/dL: High >190 mg/dL: Very High CARDIAC RISK RATIO 4.4 3.3 - 4.4 C [facility] Blood 08/22/2021 8:13 AM EST 08/22/2021 8:17 AM EST us Jennifer Duke NP LAB BLOOD ORDERABLES Final Resu lt [address] [address] * Pap Smear (02/22/2020 12:00 AM EDT) 02/22/2020 02/23/2020 8:2 1 AM EDT Narrative SEE NARRATIVE - 02/27/2020 11:20 AM EDT [address] [address] Technical Solutions Director: Perla Luis MD CAMPUS PRESIDENT Cytology Report FINAL DIAGNOSIS A. PAP SMEAR (SUREPATH) CE: SPECIMEN ADEQUACY: Satisfactory for evaluation; transformation zone present. INTERPRETATION: NEGATIVE FOR INTRAEPITHELIAL LESION OR MALIGNANCY. Electronically Signed Out By: AJ Jung(ASCP) The Pap test is a screening test primarily for squamous cancers and precursors and has associated false-negative and false-positive results. New technologies such as liquid-based preparations may decrease but will not eliminate all false-negative results. Regular sampling and follow-up of unexplained clinical signs and symptoms are recommended to minimize false negative results. PROCEDURES/ADDENDA HPV Testing (Requested) Ordered Date: 02/23/2020 A. PAP SMEAR (SUREPATH) CE: Human Papilloma Virus Test Negative for high-risk human papillomavirus types 16, 18, 45 and the Other high risk probe set (Includes 31, 33, 35, 39, 51, 52, 56, 58, 59, 66, 68) by [employer] Onclarity HR-HPV analysis. Clinical correlation is advised. This HPV test was performed at [facility], [address] [place] [address]. This test has been FDA approved for SurePath cervical cytology specimens. The accuracy and precision of this test for all other specimen sources has been verified in the Cytopathology Laboratory of the [facility] and has not been cleared or approved by the U.S. Food and Drug Administration. Clinical correlation is advised. CLINICAL HISTORY Date of Last Menstrual Period: 2009 Menstrual History: Post Menopausal Other Clinical Conditions: Screening Pap SPECIMEN SOURCE A: PAP SMEAR (SUREPATH) CE Patient Name: MAYRA CONSTANTINO : 1965 (Age: 55) Sex: F Institution: [facility] Location: [facility] Date of Collection: 02/22/2020 Date of Reported: 02/27/2020 11:20 Results to: Jennifer Duke MSN, BSN us Jennifer Duke BENDING FRAME OPERATOR CYTOLOGY ORDERABLES Final Resul t SEE NARRATIVE * Hepatitis C antibody, qualitative (05/25/2019 10:24 AM EST) HCV NON-REACTIV E NON-REACTI VE [facility] Blood 05/25/2019 10:2 4 AM EST 05/25/2019 10:26 AM EST us Jennifer Duke NP LAB BLOOD ORDERABLES Final Resu lt Performing Organization Address City/[facility]/ZIP Co de Phone Number [facility] [address] [place] [address] * COLONOSCOPY FOR RESULT ENTRY ONLY (12/04/2013) Colonoscopy repeat 10 yrs us Historical Provider MD HEALTH MAINTENANCE Final Result from Last 3 Months or Most Recently Relevant to Health Maintenance Insurance [facility] MEDICARE A [facility] MEDICARE A [facility] MEDICARE A Mar[place] [facility] MEDIC[facility] [place] [phone] [facility] MEDIC[facility] A Care Teams Whizzer Operator Relationship Specialty Start Date End Date Antione Segura PA-C [address] [place] [address] PCP - General Physician Booth Cashier 10/12/24 Jn Cardoza MD [address] [place] [address], 2nd [place] [address] Neurology 02/03/24 Denys Henriquez MD [address] [place] [address] [place] [address] Pulmonary Disease 02/03/24 Rhett Cortez MD [address] [place] [address] [email or web address] Insurance Assigned Provider 01/20/25 Additional Source Comments The information contained in this document represents components of the legal health record. It is not the complete legal health record.[facility]
--- OUTSIDE RECORDS SUMMARY | 2025-02-14 12:11 | XMS_ITS | Encounter Summary ---
Author Organization [facility] Address [address] [address] Phone Care Team Providers Care Protein Specialist Name Role Phone Jn Cardoza MD Unavailable Denys Henriquez MD Unavailable Antione Segura PA-C Primary Care Provider Rhett Cortez MD Unavailable Reason for Visit * Auth/Cert (Routine) Specialty Diagnoses / Procedures Referred By Dary smith Referred To Contact Referral ID Status Reason Start Date Expiration Date Visits Re quested Visits Authorized [id number] 1 1 Encounter Details Date Type Department Care Team (Late st Contact Info) Description 02/11/2025 Home Care Visit [facility] [address] [place] [address] Maritza Calix, HUA [address] [place] [address] [email or web address] CASE COMMUNICATION Social History Tobacco Use Types Packs/Day Years [...] high school, GED, job training, learning the Telugu language, technical skills, or developing parenting skills)? [...] 02/14/2025 1:30 PM EDT Home Care Visit [facility] [address] [place] [address] Shakira Hand RN [address] [place], [place] [phone] 02/15/2025 9:00 AM EDT Office Visit [facility] Internal Medicine [address] [place] [address] Antione Segura PA-C [address] [place] [address] [email or web address] 02/21/2025 1:00 AM EDT Appointment [facility] [address] [place], [place] [phone] Shakira Hand RN [address] [place] [address] 04/17/2025 1:00 PM EST [facility] [address] [place] [address] Brittnee Vigil MD [address] [place] [address] 06/25/2025 9:30 AM EST Telemedicine [facility] Neurology [address] [place] [address] Jn Cardoza MD [address] [address] [email or web address] documented as of this encounter Visit Diagnoses Not on filedocumented in this encounter Additional Health Concerns Assessment Noted Time PHQ-9 Depression Total Score: 15 025 9:44 AM EDT PHQ-2 Depression Total Score: 4 02/01/20 25 9:44 AM EDT documented as of this encounter Care Teams Protein Specialist Relationship Specialty Start Date End Date Antione Segura PA-C [address] [place] [address] PCP - General Physician Bread Wrapper Operator 10/12/24 Jn Cardoza MD [address] [place] [address] Neurology 02/03/24 Denys Henriquez MD [address] [place] [address] [place] [address] Pulmonary Disease 02/03/24 Rhett Cortez MD [address] [place] [address] [email or web address] Insurance Assigned Provider 01/20/25 documented as of this encounter Additional Source Comments The information contained in this document represents components of the legal health record. It is not the complete legal health record.[facility]
--- OUTSIDE RECORDS SUMMARY | 2025-02-14 12:11 | XMS_ITS | Encounter Summary ---
Author Organization [facility] Address [address] [place] [address] Phone Care Team Providers Care Transformer Builder Name Role Phone Lang Germain MD Unavailable [phone] Jennifer Duke SERGEANT AT ARMS Primary Care Provider Sirisha Huertas FRUCTOSE LOADER Primary Care Provider Jn Cardoza MD Unavailable Denys Henriquez MD Unavailable [phone] Liyah Patterson MD Unavailable Liyah Patterson MD Primary Care Provider [phone] Antione Segura PA-C Primary Care Provider Rhett Cortez MD Unavailable Encounter Details Date Type Department Care Team (Late st Contact Info) Description 06/30/[address] [facility], Ct Scan - [address] [address] Social History Tobacco Use Types Packs/Day Years Used Date Smoking Tobacco: Every Day Cigarettes 0.8 43.2 Started: 11/25/1981 Smokeless Tobacco: Never Alcohol [...] 02/14/2025 1:30 PM EDT Home Care [facility] [address] [place], [place] [phone] Shakira Hand, HUA [address] [place] [address] 02/15/2025 9:00 AM EDT Office Visit [facility] Internal Medicine 40 [place] [address] Antione Segura PA-C 40 [place] [address] 02/21/2025 1:00 AM EDT [facility] [address] [place], [place] [phone] Shakira Hand RN [address] [place] [address] 04/17/2025 1:00 PM EST [facility] [address] [place] [address] Brittnee Vigil MD [address] [place] [address] 06/25/2025 9:30 AM EST Telemedicine [facility] Neurology [address] [place] [address] Jn Cardoza MD [address] [address] [email or web address] documented as of this encounter Visit Diagnoses Not on filedocumented in this encounter Additional Health Concerns Assessment Noted Time PHQ-9 Depression Total Score: 18 023 8:53 AM EST PHQ-2 Depression Total Score: 6 06/26/19 23 8:53 AM EST documented as of this encounter Care Teams Transformer Builder Relationship Specialty Start Date End Date Jennifer Duke, SERGEANT AT [employer] [address] [place] [address] [email or web address] PCP - General Family Medicine 01/31/20 06/22/23 Sirisha Huertas FNP [address] [place] [address] [email or web address] PCP - General Nurse Practitioner 06/23/23 08/03/24 Liyah Patterson MD [address] [place] [address] [email or web address] PCP - General Family Medicine 08/04/24 10/11/24 Antione Segura PA-C [address] [place] [address] [email or web address] PCP - General Physician Sign Hanger 10/12/24 Lang Germain MD [address] [place] [address] [email or web address] Insurance Assigned Provider 09/18/23 02/19/24 Jn Cardoza MD [address] [place] [address] Neurology 02/03/24 Denys Henriquez MD [address] [place] [address] [place] [address] Pulmonary Disease 02/03/24 Liyah Patterson MD [address] [place] [address] [email or web address] Insurance Assigned Provider 02/19/24 01/20/25 Rhett Cortez MD [address] [place] [address] Insurance Assigned Provider 01/20/25 documented as of this encounter Additional Source Comments The information contained in this document represents components of the legal health record. It is not the complete legal health record.[facility]
--- OUTSIDE RECORDS SUMMARY | 2025-02-14 12:11 | XMS_ITS | Encounter Summary ---
Author Organization [facility] Address [address] [place] [address] Phone Care Team Providers Care Production Ski Repairer Name Role Phone Charbel Webber MD Unavailable Alverto Gandara MD Unavailable Maikel Rawls MD Unavailable [phone] Lang Germain MD Unavailable Jennifer Duke RESEARCH SOIL SCIENTIST Primary Care Provider Lang Germain MD Primary Care Provider Jennifer Duke RESEARCH SOIL SCIENTIST Unavailable [phone] Jennifer Duke RESEARCH SOIL SCIENTIST Primary Care Provider Lang Germain MD Primary Care Provider Jennifer Duke RESEARCH SOIL SCIENTIST Primary Care Provider Sirisha Huertas MANAGER STERILE PROCESSING Primary Care Provider [phone] Jn Cardoza MD Unavailable Denys Henriquez MD Unavailable Liyah Patterson MD Unavailable Liyah Patterson MD Primary Care Provider Antione Segura PA-C Primary Care Provider Rhett Cortez MD Unavailable Encounter Details Date Type Department Care Team (Late Contact Info) Description 03/20/2019 Telephone [facility] Internal Medicine [address] [place] [address] Jennifer Duke, RESEARCH SOIL SCIENTIST [address] [facility] [address] [place] [address] Social History Tobacco Use Types Packs/Day Years Used Date Smoking Tobacco: Every Day Cigarettes 0.5 43.2 Started: 11/25/1981 Smokeless Tobacco: Current Alcohol Use Standard Drinks/Week Comments Yes 0 [...] Visit [facility] [address] [place], [place] [phone] Shakira Hand, HUA [address] [place] [address] 02/15/2025 9:00 AM EDT Office Visit [facility] Internal Medicine 40 [place] [address] Antione Segura PA-C 40 [place] [address] 02/21/2025 1:00 AM EDT Appointment [facility] [address] [place], [place] [phone] Shakira Hand RN [address] [place] [address] 04/17/2025 1:00 PM EST [facility] Visit [facility] 15 [place] [address] Brittnee Vigil MD 75 [place] [address] 06/25/2025 9:30 AM EST Telemedicine [facility] Neurology 22 [place] [address] Jn Cardoza MD 22 [facility], 2nd [place] [address] documented as of this encounter Visit Diagnoses Not on filedocumented in this encounter Additional Health Concerns Assessment Noted Time PHQ-2 Depression Total Score: 0 11/18/19 19 2:05 PM EDT documented as of this encounter Care Teams Production Ski Repairer Relationship Specialty Start Date End Date Jennifer Duke NP 40 [place] [address] PCP - General Family Medicine 12/14/18 11/12/19 Lang Germain MD 40 [place] [address] PCP - General Internal Medicine 11/13/19 12/03/19 Jennifer Duke NP 40 [place] [address] PCP - General Family Medicine 12/04/19 01/23/20 Lang Germain MD [address] [place] [address] [email or web address] PCP - General Internal Medicine 01/24/20 01/30/20 Jennifer Duke, RESEARCH SOIL SCIENTIST [address] [place] [address] [email or web address] PCP - General Family Medicine 01/31/20 06/22/23 Sirisha Huertas FNP [address] [place] [address] [email or web address] PCP - General Nurse Practitioner 06/23/23 08/03/24 Liyah Patterson MD [address] [place] [address] [email or web address] PCP - General Family Medicine 08/04/24 10/11/24 Antione Segura PA-C [address] [place] [phone] [email or web address] PCP - General Physician Handle Sewer 10/12/24 Charbel Webber MD [address] [place] [address], [address] [place] [address] [email or web address] Historical LMR Provider 04/01/17 0 Alverto Gandara MD [address] [place] [address], 2[address] [place] [address] Historical LMR Provider 04/01/17 12/03/19 Maikel Rawls MD 10 [facility] 1 [place] [address] [email or web address] Historical LMR Provider 04/01/17 12/03/19 Lang Germain MD 40 [place] [address] [email or web address] Insurance Assigned Provider 09/18/23 02/19/24 Jennifer Duke NP 40 [place] [address] Nurse Practitioner Family Medicine 11/13/19 01/30/20 Jn Cardoza MD 22 [facility], 2nd [place] [address] Neurology 02/03/24 Denys Henriquez MD [address] [place] [address] [place] [address] Pulmonary Disease 02/03/24 Liyah Patterson MD 15 [facility] [address]. [address] [place] [address] [email or web address] Insurance Assigned Provider 02/19/24 01/20/25 Rhett Cortez MD 40 [place] [address] Insurance Assigned Provider 01/20/25 documented as of this encounter Additional Source Comments The information contained in this document represents components of the legal health record. It is not the complete legal health record.[facility]
--- OUTSIDE RECORDS SUMMARY | 2025-02-14 12:11 | XMS_ITS | Encounter Summary ---
Author Organization [facility] Address [address] [address] Phone Care Team Providers Care Guard Immigration Name Role Phone Jn Cardoza MD Unavailable Denys Henriquez MD Unavailable Antione Segura PA-C Primary Care Provider Rhett Cortez MD Unavailable Encounter Details Date Type Department Care Team (Late st Contact Info) Description 02/09/2025 Home Health Resumption of Care Planning [facility] [address] [place] [phone] Koki Simons RN [address] [place] [address] [email or web address] Social History Tobacco Use Types Packs/Day Years [...] high school, GED, job training, learning the [place] Citizen language, technical skills, or developing parenting skills)? [...] Visit [facility] [address] [place], [place] [phone] Shakira Hand, HUA [address] [place] [address] 02/15/2025 9:00 AM EDT Office Visit [facility] Internal Medicine 40 [place] [address] Antione Segura PA-C 40 [place] [address] 02/21/2025 1:00 AM EDT Appointment [facility] [address] [place], [place] [phone] Shakira Hand RN [address] [place] [address] 04/17/2025 1:00 PM EST Office [facility] [address] [place] [address] Brittnee Vigil MD [address] [place] [address] 06/25/2025 9:30 AM EST Telemedicine [facility] Neurology [address] [place] [address] Jn Cardoza MD [address] [address] documented as of this encounter Visit Diagnoses Not on filedocumented in this encounter Additional Health Concerns Assessment Noted Time PHQ-9 Depression Total Score: 15 025 9:44 AM EDT PHQ-2 Depression Total Score: 4 02/01/20 25 9:44 AM EDT documented as of this encounter Care Teams Guard Immigration Relationship Specialty Start Date End Date Antione Segura PA-C 40 [place] [address] PCP - General Physician Kindergarten Tutor 10/12/24 Jn Cardoza MD [address] [place] [address] Neurology 02/03/24 Denys Henriquez MD [address] [place] [address] [place] [address] Pulmonary Disease 02/03/24 Rhett Cortez MD 40 [place] [address] Insurance Assigned Provider 01/20/25 documented as of this encounter Additional Source Comments The information contained in this document represents components of the legal health record. It is not the complete legal health record.[facility]
--- OUTSIDE RECORDS SUMMARY | 2025-02-14 12:11 | XMS_ITS | Encounter Summary ---
Author Organization [facility] Address [address] [place] [address] Phone Care Team Providers Care Shellfish Shucker Name Role Phone Charbel Webber MD Unavailable Alverto Gandara MD Unavailable [phone] Maikel Rawls MD Unavailable [phone] Lang Germain MD Primary Care Provider Jennifer Duke RN TEAM LEADER Primary Care Provider Lang Germain MD Primary Care Provider Jennifer Duke RN TEAM LEADER Primary Care Provider Lang Germain MD Primary Care Provider Jennifer Duke RN TEAM LEADER Primary Care Provider Lang Germain MD Unavailable Lang Germain MD Primary Care Provider Jennifer Duke RN TEAM LEADER Primary Care Provider Lang Germain MD Primary Care Provider Jennifer Duke RN TEAM LEADER Primary Care Provider Lang Germain MD Primary Care Provider [phone] Jennifer Duke RN TEAM LEADER Primary Care Provider [phone] Lang Germain MD Primary Care Provider [phone] Jennifer Duke RN TEAM LEADER Unavailable [phone] Jennifer Duke RN TEAM LEADER Primary Care Provider [phone] Lang Germain MD Primary Care Provider [phone] Jennifer Duke RN TEAM LEADER Primary Care Provider [phone] Aleksandar Sirishafrancisca Kendall SENIOR CHEMIST Primary Care Provider [phone] Jn Cardoza MD Unavailable Denys Henriquez MD Unavailable [phone] Liyah Patterson MD Unavailable Liyah Patterson MD Primary Care Provider [phone] Antione Segura PA-C Primary Care Provider [phone] Rhett Cortez MD Unavailable Reason for Referral * MRI/CAT Scan - Closed Specialty Diagnoses / Procedures Referred By Contac t Referred To Contact Procedures CT Head Outside (No Interpretation) System, Provider Not In, PhD [address] [address] Referral ID Status Reason Start Date Expiration Date Visits Re quested Visits Authorized [id number] Closed 06/20/2018 06/20/2019 1 1 * MRI/CAT Scan - Closed Specialty Diagnoses / Procedures Referred By Contac t Referred To Contact Procedures CT Face Outside (No Interpretation) System, Provider Not In, PhD [address] [address] Referral ID Status Reason Start Date Expiration Date Visits Re quested Visits Authorized [id number] Closed 06/20/2018 06/20/2019 1 1 Encounter Details Date Type Department Care Team (Late st Contact Info) Description 06/20/2018 Ancillary Orders [facility],Outside Imaging [address] [place] [address] System, Provider Not In, PhD Partners [address] [address] Social History Tobacco Use Types Packs/Day Years [...] Visit [facility] [address] [place] [address] Shakira Hand RN [address] [place] [address] 02/15/2025 9:00 AM EDT Office Visit [facility] [address] [place] [address] Antione Segura PA-C [address] [place] [address] 02/21/2025 1:00 AM EDT Appointment [facility] [address] [place] [address] Shakira Hand RN [address] [place] [address] 04/17/2025 1:00 PM EST Office Visit [facility] [address] [place] [address] Brittnee Vigil MD [address] [place] [address] 06/25/2025 9:30 AM EST Telemedicine [facility] Neurology [address] [place] [address] Jn Cardoza MD [address] [facility], 2nd [place] [address] [email or web address] documented as of this encounter Results * CT Face Outside (No Interpretation) (09/29/2016 12:00 AM EDT) Narrative SYSTEMGENERATED, DOCUMENTATION - 06/20/2018 4:38 PM EST This study is for PACS storage only and not for interpretation. us Provider Not In System PhD IMG OUTSIDE IMAGING W /OUT INTERPRETATION Final Result * CT Head Outside (No Interpretation) (07/28/2016 12:00 AM EST) Narrative SYSTEMGENERATED, DOCUMENTATION - 06/20/2018 4:39 PM EST This study is for PACS storage only and not for interpretation. us Provider Not In System PhD IMG OUTSIDE IMAGING W /OUT INTERPRETATION Final Result documented in this encounter Visit Diagnoses Not on filedocumented in this encounter Additional Health Concerns Assessment Noted Time PHQ-2 Depression Total Score: 0 06/16/19 19 1:54 PM EST documented as of this encounter Care Teams Shellfish Shucker Relationship Specialty Start Date End Date Lang Germain MD [address] [place] [address] PCP - General Internal Medicine 06/13/18 06/30/18 Jennifer Duke NP [address] [place] [address] PCP - General Family Medicine 07/01/18 08/02/18 Lang Germain MD [address] [place] [address] [email or web address] PCP - General Internal Medicine 08/03/18 09/07/18 Jennifer Duke RN TEAM LEADER [address] [place] [address] [email or web address] PCP - General Family Medicine 09/08/18 09/14/18 Lang Germain MD [address] [place] [address] [email or web address] PCP - General Internal Medicine 09/15/18 10/02/18 Jennifer Duke NP [address] [place] [address] [email or web address] PCP - General Family Medicine 10/03/18 10/05/18 Lang Germain MD [address] [place] [address] [email or web address] PCP - General Internal Medicine 10/06/18 10/12/18 Jennifer Duke RN TEAM LEADER [address] [place] [address] [email or web address] PCP - General Family Medicine 10/13/18 11/09/18 Lang Germain MD [address] [place] [address] [email or web address] PCP - General Internal Medicine 11/10/18 11/22/18 Jennifer Duke, RN TEAM LEADER [address] [place] [address] [email or web address] PCP - General Family Medicine 11/23/18 11/30/18 Lang Germain MD [address] [place] [address] [email or web address] PCP - General Internal Medicine 12/01/18 12/13/18 Jennifer Duke NP [address] [place] [address] [email or web address] PCP - General Family Medicine 12/14/18 11/12/19 Lang Germain MD [address] [place] [address] [email or web address] PCP - General Internal Medicine 11/13/19 12/03/19 Jennifer Duke NP [address] [place] [address] [email or web address] PCP - General Family Medicine 12/04/19 01/23/20 Lang Germain MD [address] [place] [address] [email or web address] PCP - General Internal Medicine 01/24/20 01/30/20 Jennifer Duke RN TEAM LEADER [address] [place] [address] [email or web address] PCP - General Family Medicine 01/31/20 06/22/23 Sirisha Huertas FNP [address] [address] [email or web address] PCP - General Nurse Practitioner 06/23/23 08/03/24 Liyah Patterson MD [address] [address] [email or web address] PCP - General Family Medicine 08/04/24 10/11/24 Antione Segura PA-C [address] [place] [address] [email or web address] PCP - General Physician Bar Helper 10/12/24 Charbel Webber MD [address] [facility], [address] [place] [address] [email or web address] Historical LMR Provider 04/01/17 0 Alverto Gandara MD [address] [place] [address], [address] [place] [address] Historical LMR Provider 04/01/17 12/03/19 Maikel Rawls MD [address] [place] [address] [email or web address] Historical LMR Provider 04/01/17 12/03/19 Lang Germain MD [address] [place] [address] Insurance Assigned Provider 09/18/23 02/19/24 Jennifer Duke NP [address] [place] [address] Nurse Practitioner Family Medicine 11/13/19 01/30/20 Jn Cardoza MD [address] [facility], 2nd [place] [address] Neurology 02/03/24 Denys Henriquez MD [address] [place] [address] [place] [address] Pulmonary Disease 02/03/24 Liyah Patterson MD [address] [facility] [address] [place] [address] [email or web address] Insurance Assigned Provider 02/19/24 01/20/25 Rhett Cortez MD [address] [place] [address] Insurance Assigned Provider 01/20/25 documented as of this encounter Additional Source Comments The information contained in this document represents components of the legal health record. It is not the complete legal health record.[facility]
--- OUTSIDE RECORDS SUMMARY | 2025-02-14 12:11 | XMS_ITS | Encounter Summary ---
Author Organization [facility] Address [address] [place] [address] Phone Care Team Providers Care Hyster Driver Name Role Phone Jn Cardoza MD Unavailable Denys Henriquez MD Unavailable Antione SeguraC Primary Care Provider Rhett Cortez MD Unavailable Reason for Visit * Reason Onset Date Comments Appointment 02/13/2025 Tcm+discharged Encounter Details Date Type Department Care Team (Late st Contact Info) Description 02/13/2025 Telephone [facility] [address] [place], [place] [phone] Antione Segura PA-C [address] [place], [place] [phone] [email or web address] Appointment (Tcm+discharged 02/09/25 ) Social History Tobacco Use Types Packs/Day Years [...] high school, GED, job training, learning the Occitan language, technical skills, or developing parenting skills)? [...] as of this encounter Progress Notes * Georgina Krause - 02/13/2025 10:05 AM EDT Patient scheduled 02/15 * Georgina Krause - 02/13/2025 9:54 AM EDT LVM for patient to call the office and schedule appointment. Sent records request for [facility] * Lashonda Torres - 02/13/2025 8:52 AM EDT Transitional Care Management New Patient: YES/NO: no Hospitalization Name:[facility] Discharge Date:02/09/25 Reason for Visit+ Diagnosis:exasperating of COPD+ Is the discharge summary in patient chart:YES/NO: yes If not did you inform the patient/patient advocate to fax it to the office: YES/NO: yes Please inform the patient/patient advocate to fax and bring a copy to the appt. Appointment Date: na Is the appt: virtual in person: in person Awareness: Appt need to be schedule with in 2 to 14 calendar days from discharge date Additional Note (if applicable): [facility] Call Center CSS Agent (Please do not reply to this user, as this inbox is not monitored. Thank you.) Thank you. documented in this encounter Plan of Treatment Upcoming Encounters Date Type Department Care Team (Late st Contact Info) Description 02/14/2025 1:30 PM EDT Home Care Visit [facility] [address] [place], [place] [phone] Shakira Hand RN [address] [place] [address] 02/15/2025 9:00 AM EDT Office Visit [facility] Internal Medicine [address] [place] [address] Antione Segura PA-C [address] [place] [address] 02/21/2025 1:00 AM EDT Appointment [facility] [address] [place], [place] [phone] Shakira Hand RN [address] [place] [address] 04/17/2025 1:00 PM EST Office Visit [facility] [address] [place] [address] Brittnee Vigil MD [address] [place] [address] 06/25/2025 9:30 AM EST Telemedicine [facility] Neurology [address] [place] [address] Jn Cardoza MD 22 [facility], 2nd [place] [address] documented as of this encounter Visit Diagnoses Not on filedocumented in this encounter Additional Health Concerns Assessment Noted Time PHQ-9 Depression Total Score: 15 01/31/ 025 9:44 AM EDT PHQ-2 Depression Total Score: 4 02/01/20 25 9:44 AM EDT documented as of this encounter Care Teams Hyster Driver Relationship Specialty Start Date End Date Antione Segura PA-C [address] [place] [address] [email or web address] PCP - General Physician Student Affairs Dean 10/12/24 Jn Cardoza MD 22 [facility], 2nd [place] [address] Neurology 02/03/24 Denys Henriquez MD [address] [place] [address] [place] [address] Pulmonary Disease 02/03/24 Rhett Cortez MD [address] [place] [address] [email or web address] Insurance Assigned Provider 01/20/25 documented as of this encounter Additional Source Comments The information contained in this document represents components of the legal health record. It is not the complete legal health record.[facility]
== END 2025-02-14 10:23 | disposition home or self-care (01) ==
LOC: HO.MAMMO 10:22
PROVIDERS: PCP Registered Nurse; Visit Provider Registered Nurse
DX: N63.25 Unspecified lump in the left breast, overlapping quadrants (principal)
CPT/HCPCS: 76642; 77062; 77066

== ENCOUNTER → 2025-02-14 10:30 | Outpatient (BNV) | payer BC, SELFPAY | PROVIDERS: PCP Registered Nurse; Visit Provider Internal Medicine | DX: R92.8 Other abnormal and inconclusive findings on diagnostic imaging of breast (principal) | CPT/HCPCS: 76642; 77062; 77066 ==

== ENCOUNTER 2025-02-17 09:53 | Outpatient (REF) | payer BC, SELFPAY ==
--- OUTSIDE RECORDS SUMMARY | 2025-02-12 12:30 | XMS_ITS | Encounter Summary ---
Author Organization [facility] Address [address] [place] [address] Phone Care Team Providers Care Treasury Associate Name Role Phone Jn Cardoza MD Unavailable Denys Henriquez MD Unavailable [phone] Antione Segura PA-C Primary Care Provider [phone] Rhett Cortez MD Unavailable Reason for Visit * Auth/Cert (Routine) Specialty Diagnoses / Procedures Referred By Dary smith Referred To Contact Referral ID Status Reason Start Date Expiration Date Visits Re quested Visits Authorized [id number] 1 1 Encounter Details Date Type Department Care Team (Late st Contact Info) Description 02/12/2025 12:30 PM EDT Home Care Visit [facility] [address] [place] [address] Shakira Hand, HUA [address] [place] [address] [email or web address] SN OASIS RESUMPTION OF CARE (VERONIKA) Social History Tobacco Use Types Packs/Day Years [...] high school, GED, job training, learning the [place] language, technical skills, or developing parenting skills)? [...] Sign Reading Time Taken Comments Blood Pressure 152/78 02/12/2025 12:33 PM EDT Pulse 81 02/12/2025 12:33 PM EDT Temperature 36.8 C (98.3 F) 02/12/2025 12:33 PM EDT Respiratory Rate - - Oxygen Saturation 96% 02/12/2025 12:33 PM EDT Inhaled Oxygen Concentration - - Weight - - Height - - Body Mass Index - - documented in this encounter Plan of Treatment Upcoming Encounters Date Type Department Care Team (Late st Contact Info) Description 02/19/2025 1:00 AM EDT Home [facility] Visit [facility] [address] [place], [place] [phone] Krysta Charles [address] [place] [address] 02/21/2025 11:00 AM EDT Appointment [facility] [address] [place], [place] [phone] Shakira Hand, HUA [address] [place] [address] 03/28/2025 9:40 AM EDT Office Visit [facility] [place] [facility] 40 [place] [address] Antione Segura PA-C 40 [place], [place] 06/25/2025 9:30 AM EST Telemedicine [facility] Neurology [address] [place] [address] Jn Cardoza MD 22 [facility], 2nd [place] [address] [email or web address] documented as of this encounter Visit Diagnoses Not on filedocumented in this encounter Additional Health Concerns Assessment Noted Time PHQ-9 Depression Total Score: 15 025 9:44 AM EDT PHQ-2 Depression Total Score: 4 02/01/20 25 9:44 AM EDT documented as of this encounter Home Health Visit - Care Plan Visit Details Visit Type -SN OASIS RESUMPT ION OF CARE Discipline -Jail Problems Problem Description Start Date Status Goals Interve ntions HH - Medication Management Disciplines: All Active Home Health Disciplines, Jail 12/27/2024 Active 1 goal linked to scheduled/document ed intervention 2 problem interventions scheduled/document ed in this visit 2 goal interventions scheduled/document ed in this [...] medication errors and/or interactions Completed HH - Prefill or setup medications as follows: Description: SN TO ASSIST PATIENT IN SETTING UP PILL ORGANIZER WEEKLY Problem:HH - Medication Management Completed HH - Assess medication compliance Problem:HH - Medication Management Completed HH - Focus of care, teaching completed and plan for next visit Problem:HH - Focus of Care and Teaching Goal:HH - Communication and collaboration to achieve patient goals Completed Primary Clinical Focus this Visit & Instruction Provided: PMH: CHRONIC LUNG DISEASE, ACUTE ON CHRONIC RESP FAILURE, ACUTE EXACERBATION OF COPD ASTHMA. SIGNIFICANT COPD ON HOME OXYGEN 1-3L/MIN. HYLERPLIPIDEMIA, NEPHROLITHIASIS,CVA, OBESITY, MODERATE , CHRONIC PAIN. MULTIPLE HOSPITALIZATIONS DUE TO COPD EXACERBATION. DISCHARGED ON PREDNISONE TAPER AND ONE MORE DAY DOXYCYLINE. TO FOLLOW UP WITH PULMONOLOGY IN 2 WEEKS. 40MGX 4DAYS, 30MG X 4DAYS, 20MG X 4 DAYS, 10MG X 4 DAYS, 5MG X4DAYS. PT A/OX4, LIVES WITH SUPPORTIVE . ON O2 2L TODAY. REPORTS SOME SOB. WALKED THIS MORNING USING HER WALKER, HAD TO TAKE VARIOUS REST PERIODS. CONTINUES TO PERFORM DUONEBS DAILY. PT IS PUTTING AN EFFORT INTO WEARING HER CPAP MASK AT NIGHT MORE FREQUENTLY. TPYICALLY IT CAN BE PAINFUL DUE TO HER LEFT FACE TRIGEMINAL NEURALGIA. ALSO REPORTS SHE IS USING HER INCENTIVE SPIROMETER MORE FREQUENTLY. VS WNL, LS DIMINISHED, NO EDEMA. ASSISTED PATIENT IN ORGANIZING MEDICATIONS, PT STILL GETS OCCASIONALLY OVERWHELMED AND CONFUSED WITH SETTING UP HER MEDICATIONS. COMPLETED ORAL ABX. NO ON PREDNISONE TAPER. WILL BE FOLLOWING UP HER AERIAL PHOTOGRAPHER WITHN T COUPLE WEEKS AND PCP THIS WEDNESDAY Instruction Provided to: patient Response to Instruction/Teaching: Is partially able to teach back topics as evidenced by NEEDS RIENFORCEMENT. Plan for Next Visit Specific Focus & Education Needed: MEDICATION MANAGEMENT, CVP, RESP, O2, COPD MANAGEMENT New Orders: Updated Discharge Plan: - I/E management of care in an [...] Completed documented in this encounter Care Teams Treasury Associate Relationship Specialty Start Date End Date Antione Segura PA-C [address] [place] [address] PCP - General Physician Tucking Machine Operator 10/12/24 Jn Cardoza MD [address] [place] [address], 2nd [place] [address] Neurology 02/03/24 Denys Henriquez MD [address] [place] [address] [place] [address] Pulmonary Disease 02/03/24 Rhett Cortez MD [address] [place] [address] Insurance Assigned Provider 01/20/25 documented as of this encounter Additional Source Comments The information contained in this document represents components of the legal health record. It is not the complete legal health record.[facility]
--- OUTSIDE RECORDS SUMMARY | 2025-02-14 | XMS_ITS | Encounter Summary ---
Author Organization [facility] Address [address] [address] Phone Care Team Providers Care Labeler Name Role Phone Jn Cardoza MD Unavailable Denys Henriquez MD Unavailable Antione Segura PA-C Primary Care Provider [phone] Rhett Cortez MD Unavailable Reason for Visit * Auth/Cert (Routine) Specialty Diagnoses / Procedures Referred By Dary smith Referred To Contact Referral ID Status Reason Start Date Expiration Date Visits Re quested Visits Authorized [id number] 1 1 Encounter Details Date Type Department Care Team (Late st Contact Info) Description 02/14/2025 Home Care Visit [facility] 30 [place] [phone] Krysta Charles [address] [place] [address] [email or web address] [place] [facility] VISIT Social History Tobacco Use Types Packs/Day Years [...] high school, GED, job training, learning the Urdu language, technical skills, or developing parenting skills)? [...] PM EDT documented as of this encounter Plan of Treatment Upcoming Encounters Date Type Department Care Team (Late st Contact Info) Description 02/19/2025 1:00 AM EDT Home [facility] [address] [place] [phone] Krysta Charles [address] [place] [address] 02/21/2025 11:00 AM EDT Appointment [facility] [address] [place] [phone] Shakira Hand RN [address] [place] [address] 03/28/2025 9:40 AM EDT Office Visit [facility] Internal Medicine 40 [place] [address] Antione Segura PA-C 40 [place] [address] 06/25/2025 9:30 AM EST Telemedicine [facility] Neurology 22 [place] [address] Jn Cardoza MD 22 [facility], 2nd [place] [address] documented as of this encounter Visit Diagnoses Not on filedocumented in this encounter Additional Health Concerns Assessment Noted Time PHQ-9 Depression Total Score: 15 08/20/2 025 9:44 AM EDT PHQ-2 Depression Total Score: 4 02/01/20 25 9:44 AM EDT documented as of this encounter Home Health Visit - Care Plan Visit Details Visit Type -[place] [facility] HOME VISIT Discipline -Home Health Aide Problems Problem Description Start Date Status Goals Interve ntions HH - Home Health Aide Care Plan Disciplines: Home Health Aide 12/28/2024 Active 1 goal linked to scheduled/documente d intervention 5 goal interventions scheduled/documente d in this visit Goals Goal Associated Problem Outcome Goal Met? Visit Notes HH - Personal care needs will be met. HH - Home Health Aide Care Plan No Interventions Intervention Associated Problem/Goal Status Variance Visit Notes HH - Report changes in condition for example bowel/bladder, skin, ambulation, home safety, confusion/mental status Problem:HH - Home Health Aide Care Plan Goal:HH - Personal care needs will be met. Completed HH - Care of the environment Description: Change/Make bed and Laundry essential to patient Problem:HH - Home Health Aide Care Plan Goal:HH - Personal care needs will be met. Completed HH - Assist with/complete safe bathing Description: Shower with chair or bench Problem:HH - Home Health Aide Care Plan Goal:HH - Personal care needs will be met. Completed HH - Assist with personal care Description: Dressing, Skin Care , Hair Care: Shampoo as needed, Mouth Care and Nail Care (no cutting file only) Problem:HH - Home Health Aide Care Plan Goal:HH - Personal care needs will be met. Completed HH - Meal prep Problem:HH - Home Health Aide Care Plan Goal:HH - Personal care needs will be met. Scheduled documented in this encounter Care Teams Labeler Relationship Specialty Start Date End Date Antione Segura PA-C [address] [place] [address] PCP - General Physician Phosphorus Processing Supervisor 10/12/24 Jn Cardoza MD [address] [place] [address], 2nd [place] [address] Neurology 02/03/24 Denys Henriquez MD [address] [place] [address] [place] [address] Pulmonary Disease 02/03/24 Rhett Cortez MD 40 [place] [address] [email or web address] Insurance Assigned Provider 01/20/25 documented as of this encounter Additional Source Comments The information contained in this document represents components of the legal health record. It is not the complete legal health record.[facility]
--- OUTSIDE RECORDS SUMMARY | 2025-02-14 13:30 | XMS_ITS | Encounter Summary ---
Author Organization [facility] Address [address] [place] [address] Phone Care Team Providers Care Lunch Truck Operator Name Role Phone Jn Cardoza MD Unavailable Denys Henriquez MD Unavailable Antione Segura PA-C Primary Care Provider Rhett Cortez MD Unavailable Reason for Visit * Auth/Cert (Routine) Specialty Diagnoses / Procedures Referred By Dary smith Referred To Contact Referral ID Status Reason Start Date Expiration Date Visits Re quested Visits Authorized [id number] 1 1 Encounter Details Date Type Department Care Team (Late st Contact Info) Description 02/14/2025 1:30 PM EDT Home Care Visit [facility] [address] [place] [address] Shakira Hand, HUA [address] [place], [place] [phone] [email or web address] SN HOME VISIT Social History Tobacco Use Types [...] high school, GED, job training, learning the Tristanian language, technical skills, or developing parenting skills)? [...] Sign Reading Time Taken Comments Blood Pressure 104/60 02/14/2025 1:45 PM EDT Pulse 83 02/14/2025 1:45 PM EDT Temperature 36.1 C (97 F) 02/14/2025 1:45 PM EDT Respiratory Rate - - Oxygen Saturation 96% 02/14/2025 1:45 PM EDT Inhaled Oxygen Concentration - - Weight - - Height - - Body Mass Index - - documented in this encounter Plan of Treatment Upcoming Encounters Date Type Department Care Team (Late st Contact Info) Description 02/19/2025 1:00 AM EDT Home [facility] [address] [place] [address] Krysta Charles [address] [place] [address] 02/21/2025 11:00 AM EDT Appointment [facility] [address] [place], [place] [phone] Shakira Hand, HUA [address] [place] [address] 03/28/2025 9:40 AM EDT Office Visit [facility] [address] [place] [address] Antione Segura PA-C [address] [place] [address] [email or web address] 06/25/2025 9:30 AM EST Telemedicine [facility] Neurology [address] [place] [address] Jn Cardoza MD 22 [facility], 2nd [place] [address] [email or web address] documented as of this encounter Visit Diagnoses Not on filedocumented in this encounter Additional Health Concerns Assessment Noted Time PHQ-9 Depression Total Score: 15 025 9:44 AM EDT PHQ-2 Depression Total Score: 4 02/01/20 25 9:44 AM EDT documented as of this encounter Home Health Visit - Care Plan Visit Details Visit Type -SN HOME VISIT Discipline -[facility] Problems Problem Description Start Date Status Goals Interve ntions HH - Medication Management Disciplines: All Active Home Health Disciplines, [facility] 12/27/2024 Active 1 goal linked to scheduled/document [...] harm related to medication errors and/or interactions Scheduled HH - Complete medication review every visit and medication reconciliation as indicated. Pharmacy information: Problem:HH - Medication Management Goal:HH - Safe medication management, avoid unnecessary harm related to medication errors and/or interactions Scheduled HH - Prefill or setup medications as follows: Description: SN TO ASSIST PATIENT IN SETTING UP PILL ORGANIZER WEEKLY Problem:HH - Medication Management Scheduled HH - Assess medication compliance Problem:HH - Medication Management Scheduled HH - Focus of care, teaching completed and plan for next visit Problem: - Focus of Care and Teaching Goal:HH - Communication and collaboration to achieve patient goals Scheduled - I/E management of care in an urgent or emergency (ER) situation: When to call your Home Care Team/911, ER plans, supplies, evacuation, when to contact local ER officials and how to stay informed Problem: - Emergency Planning - Knowledge of Goal: - Knowledge of options for managing care in the event of an emergency related situation. Scheduled - Emergency planning assessment: the emergency plan, supplies needed, emergency contact numbers and an evacuation plan were reviewed Description: Patient and Caregiver is/are knowledgeable of emergency plans. Problem: - Emergency Planning - Knowledge of Goal:HH - Knowledge of options for managing care in the event of an emergency related situation. Scheduled HH - Assess vital signs, pulse oximetry, pain, and as indicated, orthostatic vital signs Description: use agency-specific parameters Problem: - Standard of Care Goal:HH - Achieve care management for a safe to home/community discharge from homecare Scheduled HH - Assess skin integrity Problem: - Standard of Care Goal: - Achieve care management for a safe to home/community discharge from homecare Scheduled documented in this encounter Care Teams Lunch Truck Operator Relationship Specialty Start Date End Date Antione Segura PA-C [address] [place] [email or web address] PCP - General Physician Community Support Professional 10/12/24 Jn Cardoza MD [address] [place] [address], 2nd [place] [address] [email or web address] Neurology 02/03/24 Denys Henriquez MD [address] [place] [address] [place] [address] Pulmonary Disease 02/03/24 Rhett Cortez MD [address] [place] [address] [email or web address] Insurance Assigned Provider 01/20/25 documented as of this encounter Additional Source Comments The information contained in this document represents components of the legal health record. It is not the complete legal health record.[facility]
--- OUTSIDE RECORDS SUMMARY | 2025-02-15 09:00 | XMS_ITS | Encounter Summary ---
Author Organization [facility] Address [address] [place] [address] Phone Care Team Providers Care Signs Cleaner Name Role Phone Jn Cardoza MD Unavailable Denys Henriquez MD Unavailable Antione Segura PA-C Primary Care Provider Rhett Cortez MD Unavailable Reason for Visit * Reason Comments Hospital Follow-up [facility] Medication Question Verapamil Forms & Paperwork MOLST Encounter Details Date Type Department Care Team (Late st Contact Info) Description 02/15/2025 9:00 AM EDT Office Visit [facility] Internal Medicine [address] [place], [place] [phone] Antione Segura PA-C [address] [place], [place] [phone] [email or web address] Pulmonary emphysema, unspecified emphysema type (Primary Dx) Social History Tobacco Use Types Packs/Day Years [...] high school, GED, job training, learning the [place] language, technical skills, or developing parenting skills)? [...] Sign Reading Time Taken Comments Blood Pressure 136/72 02/15/2025 9:02 AM EDT Pulse 67 02/15/2025 9:02 AM EDT Temperature - - Respiratory Rate 21 02/15/2025 9:02 AM EDT Oxygen Saturation 95% 02/15/2025 9:02 AM EDT Inhaled Oxygen Concentration - - Weight 95.7 kg (211 lb) 02/15/2025 9:02 AM EDT Height 156.2 cm (5' 1.5 ) 02/15/2025 9:02 AM EDT Body Mass Index 39.23 02/15/2025 9:02 AM EDT documented in this encounter Progress Notes * Antione Segura PA-C - 02/15/2025 9:00 AM EDT TCM Discharge Call Documentation: Date of admission 02/05/2025 TCM Post Discharge Visit February 152:55 PM Here for f/u of recent hospitalization, discharged . 02/09/2025 See RN Post-Discharge Phone Follow-Up Note for specific dates of hospitalization, discharge diagnosis, medication reconciliation and specifics of follow up appointments. Discharge summary, including hospital course, laboratory results, imaging, and other test results as applicable reviewed. Brief summary of hospitalization: Patient with a known history of COPD on home oxygen 1 to 2 L via nasal cannula was brought in by EMS for increasing shortness of breath that have been ongoing for 2 days prior to the admission at [facility] on 02/05/2025. Patient mentions that over the course of those 2 days she was noted to have increasing shortness of breath with an SpO2 of 77%. At that time she bumped her 2 L to 4 Land I did some deep breathing and brought her SpO2 up to 85 to 89% upon EMS arrival. She also mention that she had been having an intermittent cough with white sputum with a tinge of blood. Upon arrival to the emergency department she underwent a chest x-ray and labs and ultimately was admitted to [facility] and placed on IV steroids and antibiotics. She was also given nebulizers. Sheunderwent an echocardiogram on 02/06 which showed a hyperdynamic LVEF and mild aortic stenosis. She showed significant improvement in her symptoms and therefore ended up being placed on a prednisone taper of 40 mg for 4 days, 30 mg for 4 days, 20 mg for 4 days, 10 mg for 4 days, and 5 mg for 4 days along with doxycycline to complete the course of antibiotics. She was discharged home with VNA services on 02/09/2025 Since hospitalization: She states that since being discharged she is continued on the prednisone taper and is currently on30 mg daily for the 4 days. She continues on the doxycycline. She does have an upcoming follow-up with her printing technician next week the week after with the sap data architect. She does note that she often has difficulty breathing 2 days after she stops the prednisone and this was discussed with her printing technician the last time which she feels as though is that she also needs this. HPI 60-year-old female with a past medical history of COPD/asthma on 1-3 liters via nasal cannula, hyperlipidemia, CVA, nephrolithiasis, obesity, chronic pain on oxycodone, hypertension who was brought into [facility] on 02/05/2025 for increasing shortness of breath. According to the patientshe had 2 days of shortness of breath with cough with intermittent white sputum production. She wasfound to have an SpO2 of 77% therefore she increased her oxygen level from 2 L to 4 L with an increased SpO2 after deep breathing to 85 to 89%. Upon arrival to the emergency department she underwentchest x-ray and labs which were essentially unremarkable. Patient was given nebulizers Solu-Medrol and admitted and started on IV steroids and antibiotics. The course of the last couple of days as she ended up improving in her symptoms and therefore was discharged home on a prednisone taper of 40 mg for 4 days, 30 mg for 4 days, 20 mg for 4 days, 10 mg for 4 days, and 5 mg for 4 days,. She was also given doxycycline. Currently she is on 30 mg daily for 4 days. She notes that she has an upcoming appointment with her printing technician next week and cardiology the week after due to an echocardiogramthat was obtained revealing hyperdynamic LVEF and mild aortic stenosis. In this visit we also discussed a MOST form and this was filled out with the patient and she would like to be full code. Review of Systems Respiratory: Positive for cough and shortness of breath. Vitals: 02/15/25 0902 BP: 136/72 BP Location: Left arm Patient Position: Sitting Cuff Size: Large Pulse: 67 Resp: 21 SpO2: 95% Weight: 95.7 kg (211 lb) Height: 156.2 cm (5' 1.5 ) Physical Exam Gen: Alert, pleasant and cooperative, no acute distress. HEENT: Atraumatic, normocephalic. Lungs diminished breath sounds bilaterally CV: Systolic murmur appreciated. Neuro: CN II-XII grossly intact, no strength deficits. Alert and oriented x 3. Normal speech and language. Memory intact. Mood appropriate. Pending Tests: Follow-up on pending diagnostic tests/treatments: none Assessment and Plan Chronic obstructive pulmonary disease Recently admitted on 02/05/2025 for COPD exacerbation with increased shortness of breath and cough with noted intermittent sputum production. During her admission she was given nebulizers, IV steroids, and antibiotics. She had improvement in her symptoms. She also underwent a echocardiogram on 02/06 which showed hyperdynamic LVEF with mild aortic stenosis. She was consulted in the hospital with cardiology and has an upcoming cardiology appointment in 2 weeks. Patient was discharged from the hospital on 02/09/2025 on a prednisone taper of 40 mg for 4 days, 30mg for 4 days, 20 mg for 4 days, 10 mg for 4 days, and 5 mg for 4 days. She was also given doxycycline 100 mg p.o. twice daily. Currently completing these regimens. On exam today she is noted to havediminished breath sounds bilaterally. She notes that her shortness of breath is improved however states that whenever she tapers off of the prednisone her shortness of breath worsens within 2 days ending the prednisone. I did discuss that she may qualify for a maintenance dose which is typically 10mg daily. She does have an upcoming appointment with her printing technician next week. Of note she also saw another printing technician Remy Bautista out at [facility] pulmonary and has a follow-up with them in May. During this office visit we also discussed the MOST form and this was filled out during this time. We also talked about healthcare proxies she would like to discuss with the 2 proxies that she would like to pick. Referrals/Orders Referrals have been completed/scheduled for the following providers and reasons Future Appointments Date Time Provider Department Center 02/16/2025 To Be Determined Krysta Charlse [facility] None 02/19/2025 To Be Determined Krysta Charles [facility] None 02/21/2025 11:00 AM Shakira Hand RN [facility] None 03/28/2025 9:40 AM Antione Segura PA-C [facility] None 06/25/2025 9:30 AM Jn Cardoza MD [facility] Orders Placed This Encounter Procedures Full Code Code Status Confirmed With: Patient Other Referrals: none Supports and Services: Caregiver - the caregiver at home is self Gaining benefit from primary caregiver Yes Community resources/home care services documented in nursing note above, reviewed today. Communication: Interactions with other health care providers - Communication with the following providers (with reason listed): none Education Provided: patient educated regarding relevant medical issues and treatment recommendations Assessment of treatment regimen, adherence and medication management: good documented in this encounter Miscellaneous Notes * Assessment & Plan Note - Antione Segura PA-C - 02/15/2025 12:55 PM EDT Associated Problem(s): Chronic obstructive pulmonary disease Recently admitted on 02/05/2025 for COPD exacerbation with increased shortness of breath and cough with noted intermittent sputum production. During her admission she was given nebulizers, IV steroids, and antibiotics. She had improvement in her symptoms. She also underwent a echocardiogram on 02/06 which showed hyperdynamic LVEF with mild aortic stenosis. She was consulted in the hospital with cardiology and has an upcoming cardiology appointment in 2 weeks. Patient was discharged from the hospital on 02/09/2025 on a prednisone taper of 40 mg for 4 days, 30mg for 4 days, 20 mg for 4 days, 10 mg for 4 days, and 5 mg for 4 days. She was also given doxycycline 100 mg p.o. twice daily. Currently completing these regimens. On exam today she is noted to havediminished breath sounds bilaterally. She notes that her shortness of breath is improved however states that whenever she tapers off of the prednisone her shortness of breath worsens within 2 days ending the prednisone. I did discuss that she may qualify for a maintenance dose which is typically 10mg daily. She does have an upcoming appointment with her printing technician next week. Of note she also saw another printing technician Remy Bautista out at [facility] pulmonary and has a follow-up with them in May. During this office visit we also discussed the MOST form and this was filled out during this time. We also talked about healthcare proxies she would like to discuss with the 2 proxies that she would like to pick. documented in this encounter Plan of Treatment Upcoming Encounters Date Type Department Care Team (Late st Contact Info) Description 02/19/2025 1:00 AM EDT Home [facility] Visit [facility] [address] [place], [place] [phone] Krysta Charles [address] [place] [address] 02/21/2025 11:00 AM EDT Appointment [facility] [address] [place], [place] [phone] Shakira Hand, HUA [address] [place] [address] 03/28/2025 9:40 AM EDT Office Visit [facility] Internal Medicine [address] [place] [address] Antione Segura PA-C [address] [place] [address] 06/25/2025 9:30 AM EST Telemedicine [facility] [place] [address] Jn Cardoza MD [address] [place] [id number] documented as of this encounter Visit Diagnoses Diagnosis Pulmonary emphysema, unspecified emphysema type- Primary documented in this encounter Additional Health Concerns Assessment Noted Time PHQ-9 Depression Total Score: 15 025 9:44 AM EDT PHQ-2 Depression Total Score: 4 02/01/20 25 9:44 AM EDT documented as of this encounter Care Teams Signs Cleaner Relationship Specialty Start Date End Date Antione Segura PA-C [address] [place] [address] PCP - General Physician Front Attendant 10/12/24 Jn Cardoza MD [address] [place] [id number] Neurology 02/03/24 Denys Henriquez MD [address] [place] [address] [place] [address] Pulmonary Disease 02/03/24 Rhett Cortez MD [address] [place] [phone] Insurance Assigned Provider 01/20/25 documented as of this encounter Additional Source Comments The information contained in this document represents components of the legal health record. It is not the complete legal health record.[facility]
--- OUTSIDE RECORDS SUMMARY | 2025-02-16 | XMS_ITS | Encounter Summary ---
Author Organization [facility] Address [address] [address] Phone Care Team Providers Care Detective Chief Name Role Phone Jn Cardoza MD Unavailable Denys Henriquez MD Unavailable Antione Segura PA-C Primary Care Provider Rhett Cortez MD Unavailable Reason for Visit * Auth/Cert (Routine) Specialty Diagnoses / Procedures Referred By Dary smith Referred To Contact Referral ID Status Reason Start Date Expiration Date Visits Re quested Visits Authorized [id number] 1 1 Encounter Details Date Type Department Care Team (Late st Contact Info) Description 02/16/2025 Home Care Visit [facility] [address] [place] [phone] Krysta Charles [address] [place] [address] [email or web address] 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 [...] Visit [facility] [address] [place] [phone] Krysta Charles [address] [place] [address] 02/21/2025 11:00 AM EDT Appointment [facility] [address] [place] [address] Shakira Hand RN [address] [place] [address] 03/28/2025 9:40 AM EDT Office Visit [facility] Internal Medicine [address] [place] [address] Antione Segura PA-C [address] [place] [address] 06/25/2025 9:30 AM EST Telemedicine [facility] Neurology [address] [place] [address] Jn Cardoza MD 22 [facility], 2nd [place] [address] documented as of this encounter Visit Diagnoses Not on filedocumented in this encounter Additional Health Concerns Assessment Noted Time PHQ-9 Depression Total Score: 15 08/20/2 025 9:44 AM EDT PHQ-2 Depression Total Score: 4 02/01/20 25 9:44 AM EDT documented as of this encounter Home Health Visit - Care Plan Visit Details Visit Type -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 Discipline -Home Health Aide Problems [...] Scheduled documented in this encounter Care Teams Detective Chief Relationship Specialty Start Date End Date Antoine Segura PA-C [address] [place] [phone] [email or web address] PCP - General Physician Recreation Attendant 10/12/24 nJ Cardoza MD [address] [place] [address], 2nd [place] [address] Neurology 02/03/24 Denys Henriquez MD [address] [place] [address] [place] [address] Pulmonary Disease 02/03/24 Rhett Cortez MD [address] [place] [address] [email or web address] Insurance Assigned Provider 01/20/25 documented as of this encounter Additional Source Comments The information contained in this document represents components of the legal health record. It is not the complete legal health record.[facility]
--- NOTE | ~2025-02-17 | CT_ITS ---
CLINICAL HISTORY: R91.8 - Other nonspecific abnormal finding of lung field CT chest without contrast Comparison: CR - XR CHEST 1V - 02/05/25 06:[address]/REG/SR - CT ANGIO CHEST PE PROTOCOL - 12/21/24 19:[address]/DC/SR - CT CHEST WO IV CON - 04/21/24 14:13 EST Findings: The heart size is normal. The visualized thyroid and mediastinum are unremarkable. There are a few tiny subpleural nodules, unchanged from prior. Minimal linear atelectasis at the lung bases. No focal consolidation or infiltrate. The upper abdomen is unremarkable. The bones are intact. Degenerative changes of the thoracic spine. There is a sclerotic 1 cm bone lesion within the T5 vertebral body, likely a bone island. This is unchanged dating back to 04/21/2024. IMPRESSION: 1. Unremarkable chest CT. No acute findings within the chest. This document has been electronically signed by: Franco Gonzalez MD on 02/20/2025 01:50:46
--- OUTSIDE RECORDS SUMMARY | 2025-02-17 10:00 | XMS_ITS | Encounter Summary ---
Author Organization [facility] Address [address] [place] [address] Phone Care Team Providers Care Custom Studio Coordinator Name Role Phone Jn Cardoza MD Unavailable Denys Henriquez MD Unavailable Antione Segura PA-C Primary Care Provider Rhett Cortez MD Unavailable Encounter Details Date Type Department Care Team (Late st Contact Info) Description 02/14/2025 Orders Only [facility] Internal Medicine [address] [place] [address] Provider, MD Omar [address] [place] [address] Social History Tobacco Use Types Packs/Day Years [...] high school, GED, job training, learning the Slovenian language, technical skills, or developing parenting skills)? [...] Visit [facility] [address] [place] [address] Krysta Charles [address] [place] [address] 02/21/2025 11:00 AM EDT Appointment [facility] [address] [place] [address] Shakira Hand RN [address] [place] [address] 03/28/2025 9:40 AM EDT Office Visit [facility] Internal Medicine [address] [place] [address] Antione Segura PA-C [address] [place] [address] 06/25/2025 9:30 AM EST Telemedicine [facility] Neurology [address] [place] [address] Jn Cardoza MD 22 [facility], [address] [place] [address] documented as of this encounter Procedures Procedure Name Priority Date/Time Associated Diagnosis Comments OUTSIDE US BREAST REPORT ONLY Routine 02/14/2025 4:39 PM EDT HM MAMMOGRAPHY Routine 02/14/2025 2:39 PM EDT documented in this encounter Results * Outside US Breast Report Only (02/14/2025 4:39 PM EDT) us Historical Provider MD DAWKINS US BREAST Final Res ult * HM MAMMOGRAPHY FOR RESULT ENTRY ONLY (02/14/2025 2:39 PM EDT) us Historical Provider HEALTH MAINTENANCE Final Result documented in this encounter Visit Diagnoses Not on filedocumented in this encounter Additional Health Concerns Assessment Noted Time PHQ-9 Depression Total Score: 15 025 9:44 AM EDT PHQ-2 Depression Total Score: 4 02/01/20 25 9:44 AM EDT documented as of this encounter Care Teams Custom Studio Coordinator Relationship Specialty Start Date End Date Antione Segura PA-C [address] [place] [address] PCP - General Physician License Inspector 10/12/24 Jn Cardoza MD [address] [place] [address], 2[address] [place] [address] Neurology 02/03/24 Denys Henriquez MD [address] [place] [address] [place] [address] Pulmonary Disease 02/03/24 Rhett Cortez MD [address] [place] [address] Insurance Assigned Provider 01/20/25 documented as of this encounter Additional Source Comments The information contained in this document represents components of the legal health record. It is not the complete legal health record.[facility]
--- OUTSIDE RECORDS SUMMARY | 2025-02-17 10:00 | XMS_ITS | Encounter Summary ---
Author Organization [facility] Address [address] [place] [address] Phone Care Team Providers Care Special Education Math Teacher Name Role Phone Jn Cardoza MD Unavailable Denys Henriquez MD Unavailable Antione Segura PA-C Primary Care Provider Rhett Cortez MD Unavailable Reason for Referral * Consultation (Within 3 days (urgent)) - New Request Specialty Diagnoses / Procedures Referred By Dary smith Referred To Contact Diagnoses Chronic obstructive pulmonary disease Phyllis Lee CNP [address] [place] [phone] Phone: tel: fax: [email or web address] Referral ID Status Reason Start Date Expiration Date V isits Requested Visits Authorized [id number] New Request 02/16/2025 02/16/2026 1 1 Reason for Visit * Reason Onset Date Comments Referral 02/16/2025 [facility] Pulmonology Encounter Details Date Type Department Care Team (Late st Contact Info) Description 02/16/2025 Telephone OpenR[facility] Internal Medicine [address] [place] [address] Antione Segura PA-C [address] [place] [address] [email or web address] Referral ([facility] Pulmonology) Social History Tobacco Use Types Packs/Day Years [...] high school, GED, job training, learning the South Korean language, technical skills, or developing parenting skills)? [...] your housing situation today? I have marianna andreina 01/31/2025 How many times have you move [...] as of this encounter Progress Notes * Cecile Mackey - 02/16/2025 2:22 PM EDT Start date was 02/07/2025 needs insurance auth * Phyllis Lee CNP - 02/16/2025 12:51 PM EDT VCS Reviewed: Referral signed. Thank you Phyllis Lee CNP 02/16/25 12:51 PM * Radha Haque RN - 02/16/2025 12:46 PM EDT Spoke to Zulma. She is primarily seeing Dr. Henriquez at [facility] but was referred to [facility] for a 2nd opinion. Referral to [facility] pended as requested. * Radha Haque RN - 02/16/2025 12:39 PM EDT Images from the original note were not included. * Mita Diehl - 02/16/2025 12:32 PM EDT Nicole from [facility] Pulmonology called in to check status of an [facility] See medica 02/07. Multiple pulmonology referrals on file for pt. This hand sign writer is unsure if this referral is needed or if it is replacing another pulmonology referral that has already been ordered. Please contact and advise. Central Support Spouter (Please do not reply to this user; this inbox is not monitored.) Thank you. documented in this encounter Plan of Treatment Upcoming Encounters Date Type Department Care Team (Late st Contact Info) Description 02/19/2025 1:00 AM EDT Home Care Visit [facility] [address] [place], [place] [phone] Krysta Charles [address] [place] [address] 02/21/2025 11:00 AM EDT Appointment [facility] [address] [place], [place] [phone] Shakira Hand RN [address] [place] [address] 03/28/2025 9:40 AM EDT Office Visit [facility] Internal Medicine [address] [place] [address] Antione Segura PA-C [address] [place] [address] [email or web address] 06/25/2025 9:30 AM EST Telemedicine [facility] Neurology 22 [place] [address] Jn Cardoza MD [address] [address] Scheduled Referrals Name Type Priority Associated Diagnoses Orde r Schedule Ambulatory referral to External Pulmonology Outpatient Referral Routine Chronic obstructive pulmonary disease Ordered: 02/16/2025 documented as of this encounter Visit Diagnoses Diagnosis Chronic obstructive pulmonary disease- Primary documented in this encounter Additional Health Concerns Assessment Noted Time PHQ-9 Depression Total Score: 15 025 9:44 AM EDT PHQ-2 Depression Total Score: 4 02/01/20 25 9:44 AM EDT documented as of this encounter Care Teams Special Education Math Teacher Relationship Specialty Start Date End Date Antione Segura PA-C [address] [place] [address] PCP - General Physician Retina Subspecialist 10/12/24 Jn Cardoza MD [address] [place] [address] Neurology 02/03/24 Denys Henriquez MD [address] [place] [address] [place] [address] Pulmonary Disease 02/03/24 Rhett Cortez MD [address] [place] [phone] Insurance Assigned Provider 01/20/25 documented as of this encounter Additional Source Comments The information contained in this document represents components of the legal health record. It is not the complete legal health record.[facility]
--- OUTSIDE RECORDS SUMMARY | 2025-02-17 10:00 | XMS_ITS | Encounter Summary ---
Author Organization [facility] Address [address] [address] Phone Care Team Providers Care Work Manager Name Role Phone Jn Cardoza MD Unavailable Denys Henriquez MD Unavailable Antione Segura PA-C Primary Care Provider Rhett Cortez MD Unavailable Reason for Visit * Auth/Cert (Routine) Specialty Diagnoses / Procedures Referred By Dary smith Referred To Contact Referral ID Status Reason Start Date Expiration Date Visits Re quested Visits Authorized [id number] 1 1 Encounter Details Date Type Department Care Team (Late st Contact Info) Description 02/14/2025 Home Care Visit [facility] [address] [place] [address] Laquita Mchugh, PT [address] [place] [address] [email or web address] TELEPHONE ENCOUNTER Social History Tobacco Use Types Packs/Day Years [...] high school, GED, job training, learning the Yoruba language, technical skills, or developing parenting skills)? [...] Visit [facility] [address] [place] [address] Krysta Charles [address] [place] [address] 02/21/2025 11:00 AM EDT Appointment [facility] [address] [place] [address] Shakira Hand RN [address] [place] [address] 03/28/2025 9:40 AM EDT Office Visit [facility] Internal Medicine 40 [place] [address] Antione Segura PA-C 40 [place] [address] 06/25/2025 9:30 AM EST Telemedicine [facility] Neurology 22 [place] [address] Jn Cardoza MD 22 [facility], 2nd [place] [address] documented as of this encounter Visit Diagnoses Not on filedocumented in this encounter Additional Health Concerns Assessment Noted Time PHQ-9 Depression Total Score: 15 025 9:44 AM EDT PHQ-2 Depression Total Score: 4 02/01/20 25 9:44 AM EDT documented as of this encounter Care Teams Work Manager Relationship Specialty Start Date End Date Antione Segura PA-C 40 [place] [address] PCP - General Physician Hotel Concierge 10/12/24 Jn Cardoza MD 22 [facility], 2nd [place] [address] Neurology 02/03/24 Denys Henriquez MD [address] [place] [address] [place] [address] Pulmonary Disease 02/03/24 Rhett Cortez MD [address] [place] [address] [email or web address] Insurance Assigned Provider 01/20/25 documented as of this encounter Additional Source Comments The information contained in this document represents components of the legal health record. It is not the complete legal health record.[facility]
--- OUTSIDE RECORDS SUMMARY | 2025-02-17 10:00 | XMS_ITS | Encounter Summary ---
Author Organization [facility] Address [address] [place] [address] Phone Care Team Providers Care Gaming Director Name Role Phone Lang Germain MD Unavailable [phone] Jennifer Duke FLIGHT ATTENDANT/INFLIGHT MANAGER Primary Care Provider Sirisha Huertas LEGAL PARAPROFESSIONAL Primary Care Provider Jn Cardoza MD Unavailable Denys Henriquez MD Unavailable Liyah Patterson MD Unavailable Liyah Patterson MD Primary Care Provider [phone] Antione Segura PA-C Primary Care Provider Rhett Cortez MD Unavailable Encounter Details Date Type Department Care Team (Late st Contact Info) Description 02/25/2023 Procedure Pass [facility], [address] [address] Social History Tobacco Use Types Packs/Day Years [...] high school, GED, job training, learning the Vietnamese language, technical skills, or developing parenting skills)? [...] Visit [facility] [address] [place] [address] Krysta Charles [address] [place] [address] 02/21/2025 11:00 AM EDT Appointment [facility] [address] [place] [phone] Shakira Hand RN [address] [place] [address] 03/28/2025 9:40 AM EDT Office Visit [facility] Internal Medicine 40 [place] [address] Antione Segura PA-C 40 [place] [address] [email or web address] 06/25/2025 9:30 AM EST Telemedicine [facility] Neurology 22 [place] [address] Jn Cardoza MD 22 [facility], 2nd [place] [address] documented as of this encounter Visit Diagnoses Not on filedocumented in this encounter Additional Health Concerns Assessment Noted Time PHQ-9 Depression Total Score: 21 023 12:35 PM EDT PHQ-2 Depression Total Score: 2 02/19/20 23 6:55 PM EDT documented as of this encounter Care Teams Gaming Director Relationship Specialty Start Date End Date Jennifer Duke, FLIGHT ATTENDANT/INFLIGHT MANAGER [address] [place] [address] [email or web address] PCP - General Family Medicine 01/31/20 06/22/23 Sirisha Huertas, AGA [address] [place] [address] [email or web address] PCP - General Nurse Practitioner 06/23/23 08/03/24 Liyah Patterson MD [address] [place] [address] [email or web address] PCP - General Family Medicine 08/04/24 10/11/24 Antione Segura PA-C [address] [place] [phone] [email or web address] PCP - General Physician Toolsmith 10/12/24 Lang Germain MD [address] [place] [address] [email or web address] Insurance Assigned Provider 09/18/23 02/19/24 Jn Cardoza MD [address] [place] [address], 2nd [place] [address] [email or web address] Neurology 02/03/24 Denys Henriquez MD [address] [place] [address] [place] [address] Pulmonary Disease 02/03/24 Liyah Patterson MD [address] [place] [address] [email or web address] Insurance Assigned Provider 02/19/24 01/20/25 Rhett Cortez MD [address] [place] [address] [email or web address] Insurance Assigned Provider 01/20/25 documented as of this encounter Additional Source Comments The information contained in this document represents components of the legal health record. It is not the complete legal health record.[facility]
--- OUTSIDE RECORDS SUMMARY | 2025-02-17 10:00 | XMS_ITS | Encounter Summary ---
Author Organization [facility] Address [address] [place] [phone] Phone Care Team Providers Care Ticket Worker Name Role Phone Lang Germain MD Unavailable Jennifer Duke CONVERTING TECHNICIAN Primary Care Provider Sirisha Huertas REPORTING SPECIALIST Primary Care Provider [phone] Jn Cardoza MD Unavailable Denys Henriquez MD Unavailable Liyah Patterson MD Unavailable Liyah Patterson MD Primary Care Provider [phone] Antione Segura PA-C Primary Care Provider [phone] Rhett Cortez MD Unavailable Encounter Details Date Type Department Care Team (Late st Contact Info) Description 11/27/2021 Procedure Pass [facility], [address] [place] [address] Social History Tobacco Use Types Packs/Day Years [...] AM EDT Home [facility] [address] [place] [address] Krysta Charles [address] [place] [address] 02/21/2025 11:00 AM EDT Appointment [facility] [address] [place] [phone] Shakira Hand, HUA [address] [place] [address] 03/28/2025 9:40 AM EDT Office Visit [facility] Internal Medicine 40 [place] [address] Antione Sgeura PA-C 40 [place] [address] 06/25/2025 9:30 AM EST Telemedicine [facility] Neurology 22 [place] [address] Jn Cardoza MD 22 [facility], [address] [place] [address] [email or web address] documented as of this encounter Visit Diagnoses Not on filedocumented in this encounter Additional Health Concerns Assessment Noted Time PHQ-2 Depression Total Score: 0 05/25/20 19 9:02 AM EST documented as of this encounter Care Teams Ticket Worker Relationship Specialty Start Date End Date Jennifer Duke, CONVERTING TECHNICIAN [address] [place] [address] [email or web address] PCP - General Family Medicine 01/31/20 06/22/23 Sirisha Huertas FNP [address] [place] [address] [email or web address] PCP - General Nurse Practitioner 06/23/23 08/03/24 Liyah Patterson MD [address] [place] [address] [email or web address] PCP - General Family Medicine 08/04/24 10/11/24 Antione Segura PA-C [address] [place] [address] [email or web address] PCP - General Physician Reel Cutter 10/12/24 Lang Germain MD [address] [place] [address] [email or web address] Insurance Assigned Provider 09/18/23 02/19/24 Jn Cardoza MD [address] [place] [address] Neurology 02/03/24 Denys Henriquez MD [address] [place] [address] [place] [address] Pulmonary Disease 02/03/24 Liyah Patterson MD [address] [address] [email or web address] Insurance Assigned Provider 02/19/24 01/20/25 Rhett Cortez MD 40 [place] [address] Insurance Assigned Provider 01/20/25 documented as of this encounter Additional Source Comments The information contained in this document represents components of the legal health record. It is not the complete legal health record.[facility]
--- OUTSIDE RECORDS SUMMARY | 2025-02-17 10:00 | XMS_ITS | Encounter Summary ---
Author Organization [facility] Address [address] [address] Phone Care Team Providers Care Community Health Director Name Role Phone Jn Cardoza MD Unavailable Denys Henriquez MD Unavailable Antione Segura PA-C Primary Care Provider Rhett Cortez MD Unavailable Reason for Visit * Auth/Cert (Routine) Specialty Diagnoses / Procedures Referred By Dary smith Referred To Contact Referral ID Status Reason Start Date Expiration Date Visits Re quested Visits Authorized [id number] 1 1 Encounter Details Date Type Department Care Team (Late st Contact Info) Description 02/15/2025 Home Care Visit [facility] [address] [place] [address] Laquita Mchugh, PT [address] [place] [address] [email or web address] TELEPHONE ENCOUNTER Social History Tobacco Use Types [...] high school, GED, job training, learning the Yakut language, technical skills, or developing parenting skills)? [...] Visit [facility] 30 [place] [address] Krysta Charles [address] [place] [address] 02/21/2025 11:00 AM EDT Appointment [facility] [address] [place] [address] Shakira Hand RN 168 [place] [address] 03/28/2025 9:40 AM EDT Office Visit [facility] Internal Medicine 40 [place] [address] Antione Segura PA-C 40 [place] [address] 06/25/2025 9:30 AM EST Telemedicine [facility] Neurology 22 [place] [address] Jn Cardoza MD 22 [facility], 2nd [place] [address] documented as of this encounter Visit Diagnoses Not on filedocumented in this encounter Additional Health Concerns Assessment Noted Time PHQ-9 Depression Total Score: 15 025 9:44 AM EDT PHQ-2 Depression Total Score: 4 02/01/20 25 9:44 AM EDT documented as of this encounter Care Teams Community Health Director Relationship Specialty Start Date End Date Antione Segura PA-C 40 [place] [address] PCP - General Physician Business Services Manager 10/12/24 Jn Cardoza MD 22 [facility], 2nd [place] [address] Neurology 02/03/24 Denys Henriquez MD [address] [place] [address] [place] [address] Pulmonary Disease 02/03/24 Rhett Cortez MD [address] [place] [address] [email or web address] Insurance Assigned Provider 01/20/25 documented as of this encounter Additional Source Comments The information contained in this document represents components of the legal health record. It is not the complete legal health record.[facility]
--- OUTSIDE RECORDS SUMMARY | 2025-02-17 10:00 | XMS_ITS | Encounter Summary ---
Author Organization [facility] Address [address] [address] Phone Care Team Providers Care Safety Associate Name Role Phone Jn Cardoza MD Unavailable Denys Henriquez MD Unavailable Liyah Patterson MD Unavailable Antione Segura-C Primary Care Provider Rhett Cortez MD Unavailable Encounter Details Date Type Department Care Team (Late st Contact Info) Description 01/09/2025 Home Health Resumption of [facility] [address] [place] [address] Koki Simons, HUA [address] [place] [address] [email or web address] Social History Tobacco Use Types Packs/Day Years [...] high school, GED, job training, learning the Hebrew language, technical skills, or developing parenting skills)? [...] Visit [facility] [address] [place] [address] Krysta Charles [address] [place] [address] 02/21/2025 11:00 AM EDT Appointment [facility] [address] [place] [address] Shakira Hand RN [address] [place] [address] 03/28/2025 9:40 AM EDT Office Visit [facility] Internal Medicine 40 [place] [address] Antione Segura PA-C 40 [place] [address] 06/25/2025 9:30 AM EST Telemedicine [facility] Neurology 22 [place] [address] Jn Cardoza MD 22 [facility], 2nd [place], [place] [address] documented as of this encounter Visit Diagnoses Not on filedocumented in this encounter Additional Health Concerns Assessment Noted Time PHQ-9 Depression Total Score: 20 025 9:08 PM EDT PHQ-2 Depression Total Score: 6 12/28/19 25 9:08 PM EDT documented as of this encounter Care Teams Safety Associate Relationship Specialty Start Date End Date Antione Segura PA-C 40 [place] [address] PCP - General Physician Pbx Teacher 10/12/24 Jn Cardoza MD 22 [facility], 2nd [place] [address] Neurology 02/03/24 Denys Henriquez MD [address] [place] [address] [place] [address] Pulmonary Disease 02/03/24 Liyah Patterson MD 15 [facility] [address]. [address] [place] [address] Insurance Assigned Provider 02/19/24 01/20/25 Rhett Cortez MD [address] [place] [address] Insurance Assigned Provider 01/20/25 documented as of this encounter Additional Source Comments The information contained in this document represents components of the legal health record. It is not the complete legal health record.[facility]
--- OUTSIDE RECORDS SUMMARY | 2025-02-17 10:00 | XMS_ITS | Encounter Summary ---
Author Organization [facility] Address [address] [place] [address] [place] [address] Phone Care Team Providers Care Caddy/Caddie Supervisor Name Role Phone Lang Germain MD Unavailable Jennifer Duke SIGNS CLEANER Primary Care Provider Sirisha Huertas LINSEED OIL REFINER Primary Care Provider Jn Cardoza MD Unavailable Denys Henriquez MD Unavailable Liyah Patterson MD Unavailable Liyah Patterson MD Primary Care Provider [phone] Antione Segura PA-C Primary Care Provider Rhett Cortez MD Unavailable Encounter Details Date Type Department Care Team (Late st Contact Info) Description 11/11/2021 Transcribe Orders [facility] [address] [place] [address] Jennifer Duke, SIGNS CLEANER 26 [facility] [address] [place] [address] Social History Tobacco Use Types Packs/Day Years [...] 02/19/2025 1:00 AM EDT Home Care Visit [facility] [address] [place] [address] Krysta Charles 168 [place] [address] 02/21/2025 11:00 AM EDT Appointment [facility] [address] [place] [address] Shakira Hand RN [address] [place] [address] 03/28/2025 9:40 AM EDT Office Visit [facility] Internal Medicine 40 [place] [address] Antione Segura PA-C 40 [place] [address] 06/25/2025 9:30 AM EST Telemedicine [facility] Neurology [address] [place] [address] Jn Cardoza MD 22 [facility], 2nd [place] [address] documented as of this encounter Visit Diagnoses Not on filedocumented in this encounter Additional Health Concerns Assessment Noted Time PHQ-2 Depression Total Score: 0 05/25/20 19 9:02 AM EST documented as of this encounter Care Teams Caddy/Caddie Supervisor Relationship Specialty Start Date End Date Jennifer Duke, SIGNS CLEANER [address] [place] [phone] [email or web address] PCP - General Family Medicine 01/31/20 06/22/23 Sirisha Huertas FNP [address] [place] [address] [email or web address] PCP - General Nurse Practitioner 06/23/23 08/03/24 Liyah Patterson MD [address] [place] [address] [email or web address] PCP - General Family Medicine 08/04/24 10/11/24 Antione Segura PA-C [address] [place] [phone] [email or web address] PCP - General Physician Junior Assistant Manager 10/12/24 Lang Germain MD [address] [place] [address] [email or web address] Insurance Assigned Provider 09/18/23 02/19/24 Jn Cardoza MD 22 [facility], 2nd [place] [address] [email or web address] Neurology 02/03/24 Denys Henriquez MD [address] [place] [address] [place] [address] Pulmonary Disease 02/03/24 Liyah Patterson MD [address] [place] [address] [email or web address] Insurance Assigned Provider 02/19/24 01/20/25 Rhett Cortez MD [address] [place] [address] [email or web address] Insurance Assigned Provider 01/20/25 documented as of this encounter Additional Source Comments The information contained in this document represents components of the legal health record. It is not the complete legal health record.[facility]
--- OUTSIDE RECORDS SUMMARY | 2025-02-17 10:01 | XMS_ITS | Encounter Summary ---
Author Organization [facility] Address [address] [place] [address] Phone Care Team Providers Care Briquetter Operator Name Role Phone Jn Cardoza MD Unavailable Denys Henriquez MD Unavailable Antione Segura PA-C Primary Care Provider [phone] Rhett Cortez MD Unavailable Encounter Details Date Type Department Care Team (Late st Contact Info) Description 02/14/2025 Documentation [facility] [place] Internal Medicine [address] [place], [place] [phone] Antione Segura PA-C 40 [place], [place] [phone] [email or web address] Social History Tobacco Use Types Packs/Day [...] GED, job training, learning the Citizen [place] language, technical skills, or developing parenting skills)? [...] Care Visit [facility] [address] [place] [phone] Krysta Charles [address] [place] [address] 02/21/2025 11:00 AM EDT Appointment [facility] 30 [place] [address] Shakira Hand, HUA [address] [place] [address] 03/28/2025 9:40 AM EDT Office Visit [facility] Internal Medicine [address] [place] [address] Antione Segura PA-C 40 [place] [address] [email or web address] 06/25/2025 9:30 AM EST Telemedicine [facility] Neurology 22 [place] [address] Jn Cardoza MD 22 [facility], 2nd [place] [address] [email or web address] documented as of this encounter Procedures Procedure Name Priority Date/Time Associated Diagnosis Comments OUTSIDE POTASSIUM LEVEL Routine 02/08/2025 OUTSIDE SERUM CREATININE LEVEL Routine 02/08/2025 OUTSIDE ALT LEVEL Routine 02/05/2025 documented in this encounter Results * Outside Potassium Level (02/08/2025) Potassium level - External 3.8 3.4 - 5.0 mmol/L Historical Provider MD LAB BLOOD ORDERABLES Mariya l Result * (ABNORMAL) Outside Serum Creatinine Level (02/08/2025) Creatinine, serum - External 0.66(A) 0.8 - 1.3 mg/dL [facility] Provider MD LAB BLOOD ORDERABLES Mariya l Result * Outside ALT Level (02/05/2025) ALT - External 15 5 - 30 U/L [facility] Provider MD LAB BLOOD ORDERABLES Mariya l Result documented in this encounter Visit Diagnoses Not on filedocumented in this encounter Additional Health Concerns Assessment Noted Time PHQ-9 Depression Total Score: 15 025 9:44 AM EDT PHQ-2 Depression Total Score: 4 02/01/20 25 9:44 AM EDT documented as of this encounter Care Teams Briquetter Operator Relationship Specialty Start Date End Date Antione Segura PA-C [address] [place] [address] [email or web address] PCP - General Physician Professional Driver 10/12/24 Jn Cardoza MD [address] [place] [address], 2nd [place] [address] [email or web address] Neurology 02/03/24 Denys Henriquez MD [address] [place] [address] [place] [address] Pulmonary Disease 02/03/24 Rhett Cortez MD [address] [place] [address] [email or web address] Insurance Assigned Provider 01/20/25 documented as of this encounter Additional Source Comments The information contained in this document represents components of the legal health record. It is not the complete legal health record.[facility]
--- OUTSIDE RECORDS SUMMARY | 2025-02-17 10:01 | XMS_ITS | Encounter Summary ---
Author Organization [facility] Address [address] [place] [address] Care Team Providers Care Religious Studies Professor Name Role Phone Antione Segura Primary Care Provider [phone] Reason for Visit * Reason Onset Date Comments PAC Order Request 01/29/2025 Dr. Bautista 01/29/2025 Encounter Details Date Type Department Care Team (Late st Contact Info) Description 01/29/2025 Telephone [facility] [address] [place] [address] [phone] Microbial Specialist: Federico Hill Telephone Intake, Staff PAC Order [...] 2:23 PM EDT Spoke to Pulmonary at [facility] regarding PFTs. They stated they can accept order fromDr. Bautista. Order faxed to [phone]. * Telephone Encounter - Amalia Paredes RN - 01/29/2025 1:38 PM EDT Spoke to patient. She stated not transferring care but would like to have the PFTs done closer to her, as it is a two [address] to [facility]. She is on portable oxygen and concerned that she would not have enough for such a long day of travel and testing. * Telephone Encounter - Diana Naeem - 01/29/2025 12:10 PM EDT Pt of Dr. Bautista would like PFT order faxed over to [facility] closer to her home, please advise pt # [phone] documented in this encounter Plan of Treatment Upcoming Encounters Date Type Department Care Team (Late st Contact Info) Description 05/30/2025 2:00 PM EST Follow-Up [facility] [address] [place] [address] Microbial Specialist: Remy Santos MD [address] [place] [address] documented as of this encounter Visit Diagnoses Not on filedocumented in this encounter Care Teams Religious Studies Professor Relationship Specialty Start Date End Date Antione Segura PA [address] [place] [address] PCP - General Emergency Medicine 01/10/25 documented as of this encounter
--- OUTSIDE RECORDS SUMMARY | 2025-02-17 10:01 | XMS_ITS | Clinical Summary ---
Author Organization [facility] Address [address] [phone] Care Team Providers Care Coding Specialist Name Role Phone Antione Segura Primary Care Provider [phone] Allergies Active Allergy Reactions Criticality Noted Date [...] Type Department Care Team Description 01/29/2025 Telephone [facility] [address] [place] [address] Child Protection Specialist: Federico Hill Telephone Intake, Staff PAC Order Request; Dr. 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 Procedure Name Priority Date/Time Associated Diagnosis Comments LAB - SCANNED 01/10/2025 AMB EXTERNAL XR CHEST, OUTSI DE RESULT 01/04/2025 AMB EXTERNAL ANGIOGRAM, OUTS YUN RESULT 12/21/[address] CHEST, OUTSI DE RESULT 11/30/2024 AMB EXTERNAL XR CHEST, OUTSI DE RESULT 11/18/2024 from Last 3 Months Results * Due to [place] [employer] law, this organization might not be sharing [...] Final Result from Last 3 Months Insurance [facility] HMO/POS Care Teams Coding Specialist Relationship Specialty Start Date End Date Antione Segura PA [address] [place] [address] PCP - General Emergency Medicine 01/10/25
--- OUTSIDE RECORDS SUMMARY | 2025-02-17 10:01 | XMS_ITS | Encounter Summary ---
Author Organization [facility] Address [address] [place] [address] Phone Care Team Providers Care Awning Installer Name Role Phone Lang Germain MD Unavailable Jennifer Duke C4 PLANNER Primary Care Provider Sirisha Huertas INDUSTRIAL CHEMIST Primary Care Provider Jn Cardoza MD Unavailable Denys Henriquez MD Unavailable Liyah Patterson MD Unavailable Liyah Patterson MD Primary Care Provider [phone] Antione Segura PA-C Primary Care Provider Rhett Cortez MD Unavailable Encounter Details Date Type Department Care Team (Late st Contact Info) Description 09/01/2021 Procedure Pass [address] [address] Social History Tobacco Use Types Packs/Day Years [...] Visit [facility] [address] [place] [address] Krysta Charles [address] [place] [address] 02/21/2025 11:00 AM EDT Appointment [facility] [address] [place] [phone] Shakira Hand RN 168 [place] [address] 03/28/2025 9:40 AM EDT Office Visit [facility] Internal Medicine 40 [place] [address] Antione Segura PA-C 40 [place] [address] 06/25/2025 9:30 AM EST Telemedicine [facility] Neurology [address] [place] [address] Jn Cardoza MD 22 [facility], 2nd [place], [place] [phone] documented as of this encounter Visit Diagnoses Not on filedocumented in this encounter Additional Health Concerns Assessment Noted Time PHQ-2 Depression Total Score: 0 05/25/20 19 9:02 AM EST documented as of this encounter Care Teams Awning Installer Relationship Specialty Start Date End Date Jennifer Duke, C4 PLANNER [address] [place] [address] [email or web address] PCP - General Family Medicine 01/31/20 06/22/23 Sirisha Huertas FNP [address] [place] [address] [email or web address] PCP - General Nurse Practitioner 06/23/23 08/03/24 Liyah Patterson MD [address] [place] [address] [email or web address] PCP - General Family Medicine 08/04/24 10/11/24 Antione Segura PA-C [address] [place] [email or web address] PCP - General Physician Sr. Payroll Processor 10/12/24 Lang Germain MD [address] [place] [address] [email or web address] Insurance Assigned Provider 09/18/23 02/19/24 Jn Cardoza MD 22 [facility], 2nd [place] [address] [email or web address] Neurology 02/03/24 Denys Henriquez MD [address] [place] [address] [place] [address] Pulmonary Disease 02/03/24 Liyah Patterson MD [address] [place] [address] [email or web address] Insurance Assigned Provider 02/19/24 01/20/25 Rhett Cortez MD [address] [place] [address] [email or web address] Insurance Assigned Provider 01/20/25 documented as of this encounter Additional Source Comments The information contained in this document represents components of the legal health record. It is not the complete legal health record.[facility]
--- OUTSIDE RECORDS SUMMARY | 2025-02-17 10:01 | XMS_ITS | Encounter Summary ---
Author Organization [facility] Address [address] [place] [address] Phone Care Team Providers Care Milk Inspector Name Role Phone Charbel Webber MD Unavailable Alverto Gandara MD Unavailable Maikel Rawls MD Unavailable [phone] Jennifer Duke RHEUMATOLOGY SPECIALIST Primary Care Provider Lang Germain MD Primary Care Provider Jennifer Duke RHEUMATOLOGY SPECIALIST Primary Care Provider Lang Germain MD Unavailable Lang Germain MD Primary Care Provider Jennifer Duke RHEUMATOLOGY SPECIALIST Primary Care Provider Lang Germain MD Primary Care Provider Jennifer Duke RHEUMATOLOGY SPECIALIST Primary Care Provider Lang Germain MD Primary Care Provider Jennifer Duke RHEUMATOLOGY SPECIALIST Primary Care Provider Lagn Germain MD Primary Care Provider [place], Jennifer L RHEUMATOLOGY SPECIALIST Unavailable [phone] Jennifer Duke RHEUMATOLOGY SPECIALIST Primary Care Provider [phone] Lang Germain MD Primary Care Provider [phone] Jennifer Duke RHEUMATOLOGY SPECIALIST Primary Care Provider [phone] Sirisah Huertas DEPARTMENT MGR Primary Care Provider [phone] Jn Cardoza MD Unavailable Denys Henriquez MD Unavailable Liyah Patterson MD Unavailable Liyah Patterson MD Primary Care Provider [phone] Antione Segura PA-C Primary Care Provider [phone] Rhett Cortez MD Unavailable Encounter Details Date Type Department Care Team (Late st Contact Info) Description 09/13/2018 Procedure Pass [facility], [address] [address] Social History Tobacco Use Types Packs/Day Years [...] Home Care Visit [facility] [address] [place] [phone] Krysta Charles [address] [place] [address] 02/21/2025 11:00 AM EDT Appointment [facility] [address] [place] [phone] Shakira Hand RN [address] [place] [address] [email or web address] 03/28/2025 9:40 AM EDT Office Visit [facility] Internal Medicine 40 [place] [address] Antione Segura PA-C 40 [place] [address] [email or web address] 06/25/2025 9:30 AM EST Telemedicine [facility] Neurology 22 [place] [address] Jn Cardoza MD 22 [facility], 2nd [place] [address] [email or web address] documented as of this encounter Visit Diagnoses Not on filedocumented in this encounter Additional Health Concerns Assessment Noted Time PHQ-2 Depression Total Score: 0 08/20/19 9:13 AM EST documented as of this encounter Care Teams Milk Inspector Relationship Specialty Start Date End Date Jennifer Duke NP [address] [place] [address] PCP - General Family Medicine 09/08/18 09/14/18 Lang Germain MD [address] [place] [address] PCP - General Internal Medicine 09/15/18 10/02/18 Jennifer Duke NP [address] [place] [address] PCP - General Family Medicine 10/03/18 10/05/18 Lang Germain MD 40 [place] [address] [email or web address] PCP - General Internal Medicine 10/06/18 10/12/18 Jennifer Duke RHEUMATOLOGY SPECIALIST [address] [place] [address] [email or web address] PCP - General Family Medicine 10/13/18 11/09/18 Lang Germain MD [address] [place] [address] PCP - General Internal Medicine 11/10/18 11/22/18 Jennifer Duke RHEUMATOLOGY SPECIALIST [address] [place] [address] PCP - General Family Medicine 11/23/18 11/30/18 Lang Germain MD [address] [place] [address] [email or web address] PCP - General Internal Medicine 12/01/18 12/13/18 Jennifer Duke RHEUMATOLOGY SPECIALIST [address] [place] [address] PCP - General Family Medicine 12/14/18 11/12/19 Lang Germain MD [address] [place] [address] PCP - General Internal Medicine 11/13/19 12/03/19 Jennifer Duke, RHEUMATOLOGY SPECIALIST [address] [address] [email or web address] PCP - General Family Medicine 12/04/19 01/23/20 Lang Germain MD [address] [place] [address] [email or web address] PCP - General Internal Medicine 01/24/20 01/30/20 Jennifer Duke NP [address] [place] [address] [email or web address] PCP - General Family Medicine 01/31/20 06/22/23 Sirisha Huertas FNP [address] [place] [address] 201 [place] [address] [email or web address] PCP - General Nurse Practitioner 06/23/23 08/03/24 Liyah Patterson MD [address] [place] [address] 201 [place] [address] [email or web address] PCP - General Family Medicine 08/04/24 10/11/24 Antione Segura PA-C [address] [place] [address] PCP - General Physician Drafter Commercial 10/12/24 Charbel Webber MD [address] [place] [address], [address] [place] [address] Historical LMR Provider 04/01/17 0 Alverto Gandara MD [address] [address] [email or web address] Historical LMR Provider 04/01/17 12/03/19 Maikel Rawls MD [address] [place] [address] [email or web address] LMR Provider 04/01/17 12/03/19 Lang Germain MD [address] [place] [address] [email or web address] Insurance Assigned Provider 09/18/23 02/19/24 Jennifer Duke, [place] [address] [place] [address] [email or web address] Nurse Practitioner Family Medicine 11/13/19 01/30/20 Jn Cardoza MD [address] [address] [email or web address] Neurology 02/03/24 Denys Henriquez MD [address] [place] [address] [place] [address] Pulmonary Disease 02/03/24 Liyah Patterson MD [address] [address] [email or web address] Insurance Assigned Provider 02/19/24 01/20/25 Rhett Cortez MD [address] [place] [address] [email or web address] Insurance Assigned Provider 01/20/25 documented as of this encounter Additional Source Comments The information contained in this document represents components of the legal health record. It is not the complete legal health record.[facility]
--- OUTSIDE RECORDS SUMMARY | 2025-02-17 10:01 | XMS_ITS | Encounter Summary ---
Author Organization [facility] Address [address] [place] [address] Phone Care Team Providers Care Regional Agronomist Name Role Phone Charbel Webber MD Unavailable Alverto Gandara MD Unavailable Maikel Rawls MD Unavailable [phone] Lang Germain MD Unavailable Jennifer Duke MANAGER UTILIZATION Primary Care Provider Lang Germain MD Primary Care Provider Jennifer Duke MANAGER UTILIZATION Unavailable [phone] Jennifer Duke MANAGER UTILIZATION Primary Care Provider Lang Germain MD Primary Care Provider Jennifer Duke MANAGER UTILIZATION Primary Care Provider Sirisha Huertas FORMWORK CARPENTER Primary Care Provider [phone] Jn Cardoza MD Unavailable Denys Henriquez MD Unavailable Liyah Patterson MD Unavailable Liyah Patterson MD Primary Care Provider Antione Segura PA-C Primary Care Provider Rhett Cortez MD Unavailable Encounter Details Date Type Department Care Team (Late Contact Info) Description 03/20/2019 Telephone [facility] Internal Medicine 22 [place] [address] Jennifer Duke, MANAGER UTILIZATION 26 [facility] 6 [place] [address] [email or web address] Social History Tobacco Use Types Packs/Day Years [...] Visit [facility] 30 [place] [address] Krysta Charles [address] [place] [address] 02/21/2025 11:00 AM EDT Appointment [facility] 30 [place] [address] Shakira Hand, HUA [address] [place] [address] 03/28/2025 9:40 AM EDT Office Visit [facility] Internal Medicine 40 [place] [address] Antione Segura PA-C 40 [place] [address] 06/25/2025 9:30 AM EST [facility] Neurology 22 [place] [address] Jn Cardoza MD 22 [facility], 2nd [place] [address] [email or web address] documented as of this encounter Visit Diagnoses Not on filedocumented in this encounter Additional Health Concerns Assessment Noted Time PHQ-2 Depression Total Score: 0 11/18/19 19 2:05 PM EDT documented as of this encounter Care Teams Regional Agronomist Relationship Specialty Start Date End Date Jennifer Duke NP 40 [place] [address] PCP - General Family Medicine 12/14/18 11/12/19 Lang Germain MD 40 [place] [address] PCP - General Internal Medicine 11/13/19 12/03/19 Jennifer Duke NP [address] [place] [address] PCP - General Family Medicine 12/04/19 01/23/20 Lang Germain MD [address] [place] [address] PCP - General Internal Medicine 01/24/20 01/30/20 Jennifer Duke MANAGER UTILIZATION 40 [place] [address] [email or web address] PCP - General Family Medicine 01/31/20 06/22/23 Sirisha Huertas FNP [address] [address] [email or web address] PCP - General Nurse Practitioner 06/23/23 08/03/24 Liyah Patterson MD [address] [address] [email or web address] PCP - General Family Medicine 08/04/24 10/11/24 Antione Segura PA-C [address] [place] [address] [email or web address] PCP - General Physician Pyrometer Operator 10/12/24 Charbel Webber MD [address] [place] [address], [address] [place] [address] [email or web address] Historical LMR Provider 04/01/17 0 Alverto Gandara MD [address] [place] [address], 2nd [place] [address] [email or web address] Historical LMR Provider 04/01/17 12/03/19 Maikel Rawls MD [address] [place] [address] [email or web address] Historical LMR Provider 04/01/17 12/03/19 Lang Germain MD [address] [place] [address] Insurance Assigned Provider 09/18/23 02/19/24 Jennifer Duke, MANAGER UTILIZATION [address] [place] [address] Nurse Practitioner Family Medicine 11/13/19 01/30/20 Jn Cardoza MD 22 [facility], 2nd [place] [address] Neurology 02/03/24 Denys Henriquez MD [address] [place] [address] [place] [address] Pulmonary Disease 02/03/24 Liyah Patterson MD 15 [facility] [address]. [address] [place] [address] [email or web address] Insurance Assigned Provider 02/19/24 01/20/25 Rhett Cortez MD [address] [place] [address] Insurance Assigned Provider 01/20/25 documented as of this encounter Additional Source Comments The information contained in this document represents components of the legal health record. It is not the complete legal health record.[facility]
--- OUTSIDE RECORDS SUMMARY | 2025-02-17 10:01 | XMS_ITS | Encounter Summary ---
Author Organization [facility] Address [address] [address] Phone Care Team Providers Care Billing Supervisor Name Role Phone Jn Cardoza MD Unavailable Denys Henriquez MD Unavailable Liyah Patterson MD Unavailable Antione Segura-C Primary Care Provider [phone] Rhett Cortez MD Unavailable Encounter Details Date Type Department Care Team (Late st Contact Info) Description 12/06/2024 Home Health Resumption of Care Planning [facility] [address] [place] [address] Diana Torres, RN [address] [place] [address] [email or web address] Social History Tobacco Use Types Packs/Day Years [...] high school, GED, job training, learning the Turkish language, technical skills, or developing parenting skills)? [...] Visit [facility] [address] [place] [address] Krysta Charles 168 [place] [address] 02/21/2025 11:00 AM EDT Appointment [facility] [address] [place] [phone] Shakira Hand RN 168 [place] [address] 03/28/2025 9:40 AM EDT Office Visit [facility] Internal Medicine 40 [place] [address] Antione Segura PA-C 40 [place] [address] 06/25/2025 9:30 AM EST Telemedicine [facility] Neurology 22 [place] [address] Jn Cardoza MD 22 [facility], 2nd Floor [place], [place] [phone] documented as of this encounter Visit Diagnoses Not on filedocumented in this encounter Additional Health Concerns Assessment Noted Time PHQ-9 Depression Total Score: 21 025 12:31 PM EDT PHQ-2 Depression Total Score: 6 10/13/19 12:31 PM EDT documented as of this encounter Care Teams Billing Supervisor Relationship Specialty Start Date End Date Antione Segura PA-C 40 [place] [address] [email or web address] PCP - General Physician Orange Picker 10/12/24 Jn Cardoza MD 22 [facility], 2nd [place] [address] Neurology 02/03/24 Denys Henriquez MD [address] [place] [address] [place] [address] Pulmonary Disease 02/03/24 Liyah Patterson MD 15 [facility] [address] [place] [address] [email or web address] Insurance Assigned Provider 02/19/24 01/20/25 Rhett Cortez MD 40 [place] [address] Insurance Assigned Provider 01/20/25 documented as of this encounter Additional Source Comments The information contained in this document represents components of the legal health record. It is not the complete legal health record.[facility]
--- OUTSIDE RECORDS SUMMARY | 2025-02-17 10:01 | XMS_ITS | Encounter Summary ---
Author Organization [facility] Address [address] [place] [address] Phone Care Team Providers Care Medical Advisor Name Role Phone Jn Cardoza MD Unavailable Denys Henriquez MD Unavailable Antione SeguraC Primary Care Provider Rhett Cortez MD Unavailable Reason for Visit * Reason Onset Date Comments Appointment 02/13/2025 Tcm+discharged Encounter Details Date Type Department Care Team (Late st Contact Info) Description 02/13/2025 Telephone [facility] [address] [place], [place] [phone] Antione Segura PA-C 40 [place], [place] [phone] [email or web address] Appointment (Tcm+discharged 02/09/25 ) Social History Tobacco [...] high school, GED, job training, learning the Welsh language, technical skills, or developing parenting skills)? [...] as of this encounter Progress Notes * Goergina Krause - 02/13/2025 10:05 AM EDT Patient scheduled 02/15 * Georgina Krause - 02/13/2025 9:54 AM EDT LVM for patient to call the office and schedule appointment. Sent records request for [facility] * Lashonda Torres - 02/13/2025 8:52 AM EDT Transitional Care Management New Patient: YES/NO: no Hospitalization Name:[facility] Discharge Date:02/09/25 Reason for Visit+ Diagnosis:exasperating [...] Visit [facility] 30 [place] [address] Krysta Cahrles [address] [place] [address] 02/21/2025 11:00 AM EDT Appointment [facility] 30 [place] [address] Shakira Hand, HUA 168 [place] [address] 03/28/2025 9:40 AM EDT Office Visit [facility] Internal Medicine 40 [place] [address] Antione Segura PA-C 40 [place] [address] 06/25/2025 9:30 AM EST Telemedicine [facility] Neurology 22 [place] [address] Jn Cardoza MD [address] [address] [email or web address] documented as of this encounter Visit Diagnoses Not on filedocumented in this encounter Additional Health Concerns Assessment Noted Time PHQ-9 Depression Total Score: 15 025 9:44 AM EDT PHQ-2 Depression Total Score: 4 02/01/20 25 9:44 AM EDT documented as of this encounter Care Teams Medical Advisor Relationship Specialty Start Date End Date Antione Segura PA-C [address] [place] [phone] [email or web address] PCP - General Physician Liberal Arts And Humanities Chair 10/12/24 Jn Cardoza MD [address] [place] [address] [email or web address] Neurology 02/03/24 Denys Henriquez MD [address] [place] [address] [place] [address] Pulmonary Disease 02/03/24 Rhett Cortez MD [address] [place] [address] [email or web address] Insurance Assigned Provider 01/20/25 documented as of this encounter Additional Source Comments The information contained in this document represents components of the legal health record. It is not the complete legal health record.[facility]
--- OUTSIDE RECORDS SUMMARY | 2025-02-17 10:01 | XMS_ITS | Encounter Summary ---
Author Organization [facility] Address [address] [place] [address] Phone Care Team Providers Care Ssis Etl Developer Name Role Phone Jn Cardoza MD Unavailable Denys Henriquez MD Unavailable [phone] Antione Segura PA-C Primary Care Provider [phone] Rhett Cortez MD Unavailable Reason for Visit * Reason Onset Date Comments PFT 01/24/2025 Encounter Details Date Type Department Care Team (Late st Contact Info) Description 01/24/2025 Telephone [facility] Internal Medicine 40 [place], [place] [phone] Antione Segura PA-C 40 [place] [address] [email or web address] PFT Social History Tobacco Use Types Packs/Day [...] high school, GED, job training, learning the Albanian language, technical skills, or developing parenting skills)? [...] of Facility fax is being sent to: [facility] pulmonary Document(s) requested:all PFT testing with [employer] and [facility] CSS Agent (Please do not reply to this user, as this inbox is not monitored. Thank you.) Thank you. documented in this encounter Plan of Treatment Upcoming Encounters Date Type Department Care Team (Late st Contact Info) Description 02/19/2025 1:00 AM EDT Home Care Visit [facility] 30 [place] [address] Krysta Charles 168 [place] [address] 02/21/2025 11:00 AM EDT Appointment [facility] [address] [place], [place] [phone] Shakira Hand RN 168 [place] [address] 03/28/2025 9:40 AM EDT Office Visit [facility] Internal Medicine [address] [place] [address] Antione Segura PA-C 40 [place] [address] 06/25/2025 9:30 AM EST Telemedicine [facility] [place] [address] Jn Cardoza MD [address] [place] [address] documented as of this encounter Visit Diagnoses Not on filedocumented in this encounter Additional Health Concerns Assessment Noted Time PHQ-9 Depression Total Score: 025 9:08 PM EDT PHQ-2 Depression Total Score: 12/28/19 25 9:08 PM EDT documented as of this encounter Care Teams Ssis Etl Developer Relationship Specialty Start Date End Date Antione Segura PA-C [address] [place] [address] PCP - General Physician Volunteer Assistant 10/12/24 Jn Cardoza MD [address] [place] [address] Neurology 02/03/24 Denys Henriquez MD [address] [place] [address] [place] [address] Pulmonary Disease 02/03/24 Rhett Cortez MD [address] [place] [address] Insurance Assigned Provider 01/20/25 documented as of this encounter Additional Source Comments The information contained in this document represents components of the legal health record. It is not the complete legal health record.[facility]
--- OUTSIDE RECORDS SUMMARY | 2025-02-17 10:01 | XMS_ITS | Encounter Summary ---
Author Organization [facility] Address [address] [place] [address] Phone Care Team Providers Care Scientific Technical Writer Name Role Phone Lang Germain MD Unavailable Jennifer Duke LEGAL INTERN Primary Care Provider Sirisha Huertas SWITCHMAN Primary Care Provider Jn Cardoza MD Unavailable Denys Henriquez MD Unavailable [phone] Liyah Patterson MD Unavailable Liyah Patterson MD Primary Care Provider [phone] Antione Segura PA-C Primary Care Provider [phone] Rhett Cortez MD Unavailable Encounter Details Date Type Department Care Team (Late st Contact Info) Description 05/06/2021 Procedure Pass [facility], [address] [address] Social History Tobacco Use Types Packs/Day Years [...] Visit [facility] [address] [place] [address] Krysta Charles 168 [place] [address] 02/21/2025 11:00 AM EDT Appointment [facility] [address] [place] [phone] Shakira Hand RN 168 [place] [address] 03/28/2025 9:40 AM EDT Office Visit [facility] Internal Medicine 40 [place] [address] Antione Segura PA-C 40 [place] [address] 06/25/2025 9:30 AM EST Telemedicine [facility] Neurology [address] [place] [address] Jn Cardoza MD 22 [facility], 2nd [place], [place] [phone] documented as of this encounter Visit Diagnoses Not on filedocumented in this encounter Additional Health Concerns Assessment Noted Time PHQ-2 Depression Total Score: 0 05/25/20 19 9:02 AM EST documented as of this encounter Care Teams Scientific Technical Writer Relationship Specialty Start Date End Date Jennifer Duke, LEGAL INTERN [address] [place] [address] [email or web address] PCP - General Family Medicine 01/31/20 06/22/23 Sirisha Huertas FNP [address] [place] [address] [email or web address] PCP - General Nurse Practitioner 06/23/23 08/03/24 Liyah Patterson MD [address] [place] [address] [email or web address] PCP - General Family Medicine 08/04/24 10/11/24 Antione Segura PA-C [address] [place] [address] [email or web address] PCP - General Physician Explosives Operator 10/12/24 Lang Germain MD [address] [place] [address] [email or web address] Insurance Assigned Provider 09/18/23 02/19/24 Jn Cardoza MD 22 [facility], 2nd [place] [address] [email or web address] Neurology 02/03/24 Denys Henriquez MD [address] [place] [address] [place] [address] Pulmonary Disease 02/03/24 Liyah Patterson MD [address] [place] [address] [email or web address] Insurance Assigned Provider 02/19/24 01/20/25 Rhett Cortez MD [address] [place] [address] [email or web address] Insurance Assigned Provider 01/20/25 documented as of this encounter Additional Source Comments The information contained in this document represents components of the legal health record. It is not the complete legal health record.[facility]
--- OUTSIDE RECORDS SUMMARY | 2025-02-17 10:02 | XMS_ITS | Encounter Summary ---
Author Organization [facility] Address [address] [address] Phone Care Team Providers Care R And D Lab Technician Name Role Phone Jn Cardoza MD Unavailable Denys Henriquez MD Unavailable Antione Segura PA-C Primary Care Provider Rhett Cortez MD Unavailable Encounter Details Date Type Department Care Team (Late st Contact Info) Description 02/09/2025 Home Health Resumption of Care Planning [facility] 30 [place] [address] Koki Simons RN [address] [place] [address] [email or web address] Social History Tobacco Use [...] high school, GED, job training, learning the Austrian language, technical skills, or developing parenting skills)? [...] Visit [facility] 30 [place] [address] Krysta Charles 168 [place] [address] 02/21/2025 11:00 AM EDT Appointment [facility] [address] [place] [phone] Shakira Hand RN [address] [place] [address] 03/28/2025 9:40 AM EDT Office Visit [facility] Internal Medicine 40 [place] [address] Antione Segura PA-C 40 [place] [address] 06/25/2025 9:30 AM EST Telemedicine [facility] Neurology [address] [place] [address] Jn Cardoza MD 22 [facility], 2nd Floor [place], [place] [phone] documented as of this encounter Visit Diagnoses Not on filedocumented in this encounter Additional Health Concerns Assessment Noted Time PHQ-9 Depression Total Score: 15 025 9:44 AM EDT PHQ-2 Depression Total Score: 4 02/01/20 25 9:44 AM EDT documented as of this encounter Care Teams R And D Lab Technician Relationship Specialty Start Date End Date Antione Segura PA-C 40 [place] [address] [email or web address] PCP - General Physician Engagement Quality Consultant 10/12/24 Jn Cardoza MD 22 [facility], 2nd [place] [address] Neurology 02/03/24 Denys Henriquez MD [address] [place] [address] [place] [address] Pulmonary Disease 02/03/24 Rhett Cortez MD 40 [place] [address] [email or web address] Insurance Assigned Provider 01/20/25 documented as of this encounter Additional Source Comments The information contained in this document represents components of the legal health record. It is not the complete legal health record.[facility]
--- OUTSIDE RECORDS SUMMARY | 2025-02-17 10:02 | XMS_ITS | Encounter Summary ---
Author Organization [facility] Address [address] [place] [address] Phone Care Team Providers Care Galley Worker Name Role Phone Charbel Webber MD Unavailable Alverto Gandara MD Unavailable Maikel Rawls MD Unavailable [phone] Lang Germain MD Primary Care Provider Jennifer Duke IMPORT/EXPORT ADMINISTRATOR Primary Care Provider Lang Germain MD Primary Care Provider Jennifer Duke IMPORT/EXPORT ADMINISTRATOR Primary Care Provider Lang Germain MD Primary Care Provider Jennifer Duke IMPORT/EXPORT ADMINISTRATOR Primary Care Provider Lang Germain MD Unavailable Lang Germain MD Primary Care Provider Jennifer Duke IMPORT/EXPORT ADMINISTRATOR Primary Care Provider Lang Germain MD Primary Care Provider Jennifer Duke IMPORT/EXPORT ADMINISTRATOR Primary Care Provider Lang Germain MD Primary Care Provider [phone] Jennifer Duke IMPORT/EXPORT ADMINISTRATOR Primary Care Provider [phone] Lang Germain MD Primary Care Provider [phone] Jennifer Duke IMPORT/EXPORT ADMINISTRATOR Unavailable [phone] Jennifer Duke IMPORT/EXPORT ADMINISTRATOR Primary Care Provider [phone] Lang Germain MD Primary Care Provider [phone] Jennifer Duke IMPORT/EXPORT ADMINISTRATOR Primary Care Provider [phone] Aleksandar Sirishafrancisca Kendall BUSINESS DEVELOPMENT INTERN Primary Care Provider [phone] Jn Cardoza MD Unavailable Denys Henriquez MD Unavailable [phone] Liyah Patterson MD Unavailable Liyah Patterson MD Primary Care Provider [phone] Antione Segura PA-C Primary Care Provider [phone] Rhett Cortez MD Unavailable Reason for Referral * MRI/CAT Scan - Closed Specialty Diagnoses / Procedures Referred By Contac t Referred To Contact Procedures CT Head Outside (No Interpretation) System, Provider Not In, PhD [address] [address] Referral ID Status Reason Start Date Expiration Date Visits Re quested Visits Authorized [id number] Closed 06/20/2018 06/20/2019 1 1 * MRI/CAT Scan - Closed Specialty Diagnoses / Procedures Referred By Contac t Referred To Contact Procedures CT Face Outside (No Interpretation) System, Provider Not In, PhD [address] [address] Referral ID Status Reason Start Date Expiration Date Visits Re quested Visits Authorized [id number] Closed 06/20/2018 06/20/2019 1 1 Encounter Details Date Type Department Care Team (Late st Contact Info) Description 06/20/2018 Ancillary Orders [facility] Imaging 30 [place] [address] System, Provider Not In, [place] [address] Social History Tobacco Use Types Packs/Day Years [...] Visit [facility] [address] [place] [address] Krysta Charles 168 [place] [address] 02/21/2025 11:00 AM EDT Appointment [facility] [address] [place] [address] Shakira Hand, HUA 168 [place] [address] 03/28/2025 9:40 AM EDT Office Visit [facility] Internal Medicine 40 [place] [address] Antione Segura PA-C 40 [place] [address] 06/25/2025 9:30 AM EST Telemedicine [facility] Neurology 22 [place] [address] Jn Cardoza MD 22 [facility], 2nd [place] [address] [email or web address] documented as of this encounter Results * [...] documented as of this encounter Care Teams Galley Worker Relationship Specialty Start Date End Date Lang Germain MD 40 [place] [address] [email or web address] PCP - General Internal Medicine 06/13/18 06/30/18 Jennifer Duke IMPORT/EXPORT ADMINISTRATOR 40 [place] [address] [email or web address] PCP - General Family Medicine 07/01/18 08/02/18 Lang Germain MD 40 [place] [address] [email or web address] PCP - General Internal Medicine 08/03/18 09/07/18 Jennifer Duke IMPORT/EXPORT ADMINISTRATOR 40 [place] [address] [email or web address] PCP - General Family Medicine 09/08/18 09/14/18 Lang Germain MD 40 [place] [address] [email or web address] PCP - General Internal Medicine 09/15/18 10/02/18 Jennifer Duke NP 40 [place] [address] [email or web address] PCP - General Family Medicine 10/03/18 10/05/18 Lang Germain MD 40 [place] [address] [email or web address] PCP - General Internal Medicine 10/06/18 10/12/18 Jennifer Duke NP [address] [place] [address] [email or web address] PCP - General Family Medicine 10/13/18 11/09/18 Lang Germain MD [address] [place] [address] [email or web address] PCP - General Internal Medicine 11/10/18 11/22/18 Jennifer Duke NP [address] [place] [address] [email or web address] PCP - General Family Medicine 11/23/18 11/30/18 Lang Germain MD 40 [place] [address] [email or web address] PCP - General Internal Medicine 12/01/18 12/13/18 Jennifer Duke NP [address] [place] [address] [email or web address] PCP - General Family Medicine 12/14/18 11/12/19 Lang Germain MD [address] [place] [address] [email or web address] PCP - General Internal Medicine 11/13/19 12/03/19 Jennifer Duke NP [address] [place] [address] [email or web address] PCP - General Family Medicine 12/04/19 01/23/20 Lang Germain MD 40 [place] [address] [email or web address] PCP - General Internal Medicine 01/24/20 01/30/20 Jennifer Duke IMPORT/EXPORT ADMINISTRATOR [address] [place] [address] [email or web address] PCP - General Family Medicine 01/31/20 06/22/23 Sirisha Huertas FNP [address] [address] [email or web address] PCP - General Nurse Practitioner 06/23/23 08/03/24 Liyah Patterson MD 15 [facility] [address] [place] [address] [email or web address] PCP - General Family Medicine 08/04/24 10/11/24 Antione Segura PA-C [address] [place] [address] PCP - General Physician Utility Aide 10/12/24 Charbel Webber MD 22 [facility], [address] [place] [address] [email or web address] Historical LMR Provider 04/01/17 0 Alverto Gandara MD 22 [facility], 2nd [place] [address] [email or web address] Historical LMR Provider 04/01/17 12/03/19 Maikel Rawls MD [address] [place] [address] [email or web address] Historical LMR Provider 04/01/17 12/03/19 Lang Germain MD [address] [place] [address] Insurance Assigned Provider 09/18/23 02/19/24 Jennifer Duke IMPORT/EXPORT ADMINISTRATOR [address] [place] [address] [email or web address] Nurse Practitioner Family Medicine 11/13/19 01/30/20 Jn Cardoza MD 22 [facility], 2nd [place] [address] Neurology 02/03/24 Denys Henriquez MD [address] [place] [address] [place] [address] Pulmonary Disease 02/03/24 Liyah Patterson MD 15 [facility] [address] [place] [address] Insurance Assigned Provider 02/19/24 01/20/25 Rhett Cortez MD [address] [place] [address] Insurance Assigned Provider 01/20/25 documented as of this encounter Additional Source Comments The information contained in this document represents components of the legal health record. It is not the complete legal health record.[facility]
--- OUTSIDE RECORDS SUMMARY | 2025-02-17 10:02 | XMS_ITS | Encounter Summary ---
Author Organization [facility] Address [address] [place] [phone] Phone Care Team Providers Care Fugitive Investigator Name Role Phone Lang Germain MD Unavailable Jennifer Duke SURVEILLANCE SYSTEM MONITOR Primary Care Provider Sirisha Huertas PERISHABLE FRUIT INSPECTOR Primary Care Provider [phone] Jn Cardoza MD Unavailable Denys Henriquez MD Unavailable Liyah Patterson MD Unavailable Liyah Patterson MD Primary Care Provider [phone] Antione Segura PA-C Primary Care Provider Rhett Cortez MD Unavailable Encounter Details Date Type Department Care Team (Late st Contact Info) Description 06/30/2022 Procedure Pass [facility], Ct Scan - [address] [id number] Social History Tobacco Use Types Packs/Day Years [...] Visit [facility] [address] [place] [phone] Krysta Charles [address] [place] [address] 02/21/2025 11:00 AM EDT Appointment [facility] [address] [place] [phone] Shakira Hand RN [address] [place] [address] 03/28/2025 9:40 AM EDT Office Visit [facility] Internal Medicine [address] [place] [address] Antione Segura PA-C [address] [place] [address] 06/25/2025 9:30 AM EST Telemedicine [facility] Neurology [address] [place] [phone] Jn Cardoza MD [address] [facility], [address]nd [place], [place] [phone] documented as of this encounter Visit Diagnoses Not on filedocumented in this encounter Additional Health Concerns Assessment Noted Time PHQ-9 Depression Total Score: 18 023 8:53 AM EST PHQ-2 Depression Total Score: 6 06/26/19 23 8:53 AM EST documented as of this encounter Care Teams Fugitive Investigator Relationship Specialty Start Date End Date Jennifer Duke, SURVEILLANCE SYSTEM MONITOR [address] [place] [phone] [email or web address] PCP - General Family Medicine 01/31/20 06/22/23 Sirisha Huertas FNP [address] [place] [phone] [email or web address] PCP - General Nurse Practitioner 06/23/23 08/03/24 Liyah Patterson MD [address] [place] [phone] [email or web address] PCP - General Family Medicine 08/04/24 10/11/24 Antione Segura PA-C [address] [place] [phone] [email or web address] PCP - General Physician Room Inspector 10/12/24 Lang Germain MD [address] [place] [phone] [email or web address] Insurance Assigned Provider 09/18/23 02/19/24 Jn Cardoza MD [address] [place] [address], [address] [place] [address] [email or web address] Neurology 02/03/24 Denys Henriquez MD [address] [place] [address] [place] [address] Pulmonary Disease 02/03/24 Liyah Patterson MD [address] [place] [phone] [email or web address] Insurance Assigned Provider 02/19/24 01/20/25 Rhett Cortez MD [address] [place] [phone] [email or web address] Insurance Assigned Provider 01/20/25 documented as of this encounter Additional Source Comments The information contained in this document represents components of the legal health record. It is not the complete legal health record.[facility]
--- OUTSIDE RECORDS SUMMARY | 2025-02-17 10:02 | XMS_ITS | Clinical Summary ---
Author Organization [facility] Address [address] [place] [id number] Phone Care Team Providers Care Vp Research Name Role Phone Jn Cardoza MD Unavailable Denys Henriquez MD Unavailable Antione Segura PA-C Primary Care Provider [phone] Rhett Cortez MD Unavailable Allergies Active Allergy [...] 300 mgOral 2 times daily, Reported on 02/15/2025 prazosin (MINIPRESS) 2 MG capsule Take 1 [...] daily. States does not have, per Dr. Henrqiuez/pulmo nology not on her medlist 12/28/19 25 [...] Take 10 mg by mouth daily. TAPER: [id number] 10MG X4DAYS 5MG X4DAYS 02/13/20 Active albuterol [...] O2 therapy as prescribed. Referral placed to [facility]. Persistent cough 12/28/2024 Trigeminal neuralgia 12/28/2024 [...] last year and this was completed at [facility] through her locker room manager -Her blood pressures have been not well-controlled [...] daily. She follows with Dr. Thurman at [facility]. Patient follows regularly with him. Her blood [...] Does have outpatient stress test scheduled with [facility] Cardiology. Discussed that results would indicate future management and whether that may include cardiac catheterization. I do not see record of this within her discharge summary from [facility] Assessment & Plan (12/22/2023 9:33 AM EDT): Diagnosed in the setting of COPD exacerbation. Continue statin and aspirin therapy. She does have follow-up visit scheduled with cardiology at which point they will discuss stress test. ED precautions discussed should chest pain recur Chronic obstructive pulmonary disease 03/11/2023 Assessment & Plan (02/15/2025 12:55 PM EDT): Recently admitted on 02/05/2025 for COPD exacerbation [...] On exam today she is noted to have diminished breath sounds bilaterally. She notes that her shortness of breath is improved however states that whenever she tapers off of the prednisone her shortness of breath worsens within 2 days ending the prednisone. I did discuss that she may qualify for a maintenance dose which is typically 10 mg daily. She does have an upcoming appointment with her beach expert next week. Of note she also saw another beach expert Remy Bautista out at [facility] and has a follow-up with them in May. During this office visit we also discussed the MOST form and this was filled out during this time. We also talked about healthcare proxies she would like to discuss with the 2 proxies that she would like to pick. Assessment & Plan (11/07/2024 12:47 PM EDT): Patient with a history of COPD on supplemental O2. She mentions that she is on 1 L at sleep, 2 L at rest and 3 L on exertion. She follows closely with Dr. Henriquez out of [facility]. She is on Daliresp, DuoNebs and Trelegy [...] a scheduled appointment on 12/18 with her beach expert. She is hoping to get this moved [...] follows closely with Dr. Henriquez out of [facility]. She is on Daliresp, DuoNebs and Trelegy [...] Continue prednisone as prescribed upon discharge from [facility]. Discussed concern for coronary requirement of nebulizer treatments and albuterol rescue inhaler. We also reviewed the importance of vaping cessation, she remains precontemplative. She does have follow-up appointment scheduled with Dr. Henriquez and has resumed VNA services. Assessment & Plan (11/29/2023 5:28 PM EDT): Recent admission for COPD exacerbation with acute hypoxemic respiratory failure. Current beach expert is Dr. Henriquez at [facility]. She is interested in establishing care with [facility] pulmonology some of her specialists are within the [facility] system for better continuity of care. She [...] should be seen and followed by a coding spec which she does already have appointment scheduled [...] how this is not appropriate given prescribed [place] for pain and risk of HUMAN RESOURCES TEMP depression. She is aware of these risks and agrees to continuing medication as prescribed. She understands that she can contact the office should she be interested in discussion of medication regimen. Assessment & Plan (11/01/2023 10:20 AM EDT): PHQ9 Flowsheet Row Office Visit from 10/28/2023 in [facility] PHQ-9 Total Score 24 [...] 3 times daily and she was on [place] however during her last hospital stay this [...] study and speech evaluation when inpatient at [facility]. Discussed referral to gastroenterology discussed potential of [...] EST): Continue follow-up with Dr. 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 We discussed concern for HUMAN RESOURCES TEMP depression and need to minimize use especially [...] Parotid mass 05/04/2017 10/12/2024 Nicotine dependence, cigaret reba, uncomplicated 05/04/2017 10/12/2024 Assessment & Plan (03/01/2024 10:10 AM EDT): Advised smoking cessation, remains pre-contemplative at this time Degenerative arthritis of te mporomandibular joint 05/04/2017 10/12/2024 Encounters Date Type Department Care Team Description 02/16/2025 Telephone [facility] Internal Medicine [address] [place] [address] Antione Segura PA-C Referral ([facility] Pulmonology) 02/16/2025 Home Care Visit [facility] [address] [place] [phone] Krysta Charles HOME VISIT 02/15/2025 9:00 AM EDT Office Visit [facility] Internal Medicine [address] [place] [address] Antione Segura PA-C Pulmonary emphysema, unspecified emphysema type (Primary Dx) 02/15/2025 Home Care Visit [facility] [address] [place] [phone] Laquita Mchugh, PT TELEPHONE ENCOUNTER 02/14/2025 1:30 PM EDT Home Care Visit [facility] [address] [place] [phone] Shakira Hand RN SN HOME VISIT 02/14/2025 Home Care Visit [facility] [address] [place] [phone] Laquita Mchugh, PT TELEPHONE ENCOUNTER 02/14/2025 Orders Only [facility] Internal Medicine [address] [place] [address] ProviderOmar MD 02/14/2025 Documentation [facility] Internal Medicine [address], [place] [phone] Antione Segura PA-C 02/14/2025 Home Care Visit [facility] [address], [place] [phone] Krysta Charles PAINT PROCESS ENGINEER HOME VISIT 02/13/[address] [phone] Antione eSgura PA-C Appointment (Tcm+discharged 02/09/25 ) 02/12/2025 12:30 PM EDT Home Care Visit [facility] [address], [place] [phone] Shakira Hand, RN SN OASIS RESUMPTION OF CARE (VERONIKA) 02/11/2025 Home Care Visit [facility] [address], [place] [phone] Maritza Calix, RN CASE COMMUNICATION 02/09/2025 Home Health Resumption of Care Planning [facility] [address], [place] [phone] Koki Simons RN 02/08/2025 1:00 AM EDT Home Care Visit [facility] [address], [place] [phone] Shakira Hand, HUA SN OASIS TRANSFER 02/05/2025 Home Care Visit [facility] [address], [place] [phone] Krysta Charles CASE COMMUNICATION 02/01/2025 3:30 PM EDT Home Care Visit [facility] [address], [place] [phone] Yane Lanza, PT PT HOME VISIT 02/01/2025 4:00 AM EDT Home Care Visit [facility] [address] [place] [phone] Krysta Charles PAINT PROCESS ENGINEER HOME VISIT 01/31/2025 1:30 PM EDT Home Care Visit [facility] [address] [place] [phone] Shakira Hand, RN SN HOME VISIT 01/29/2025 3:30 PM EDT Home Care Visit [facility] [address] [place] [phone] Yane Lanza, PT PT HOME VISIT 01/29/2025 8:15 AM EDT Home Care Visit [facility] [address] [place] [address] Krysta Charles PAINT PROCESS ENGINEER HOME VISIT 01/29/2025 Refill [facility] Internal Medicine [address] [place] [address] Antione Segura PA-C Medication Refill 01/29/2025 Telephone [facility] Internal Medicine [address] [place] [address] Antione Segura PA-C Request For Order(s) 01/26/2025 Home Care Visit [facility] [address] [place] [address] Karlene Berumen, RN TELEPHONE ENCOUNTER 01/25/2025 2:30 PM EDT Home Care Visit [facility] [address] [place] [address] Yane Lanza, PT PT EVALUATION 01/25/2025 4:00 AM EDT Home Care Visit [facility] [address] [place] [phone] Krysta Charles PAINT PROCESS ENGINEER HOME VISIT 01/25/2025 1:00 AM EDT Home Care Visit [facility] [address] [place] [address] Karlene Berumen, RN SN HOME VISIT 01/24/2025 Telephone [facility] Internal Medicine [address] [place] [address] Antione Segura PA-C PFT 01/24/2025 Telephone [facility] Internal Medicine [address] [place] [address] Eliaan Prabhakar, ANGELINA Breast Cancer Screening 01/23/2025 9:00 AM EDT Home Care Visit [facility] [address] [place] [address] Rich Mariscal DIRECTOR OF SUSTAINABLE DESIGN HOME VISIT 01/23/2025 4:30 AM EDT Home Care Visit [facility] [address] [place] [address] Krysta Charles PAINT PROCESS ENGINEER HOME VISIT 01/22/2025 Home Care Visit [facility] [address] [place] [address] Yane Lanza, PT TELEPHONE ENCOUNTER 01/22/2025 Refill [facility] Internal Medicine [address], [place] [phone] Antione Segura PA-C Medication Refill 01/18/2025 11:00 AM EDT Home Care Visit [facility] [address] [place] [address] Shakira Hand, HUA SN HOME VISIT 01/18/2025 9:15 AM EDT Home Care Visit [facility] [address] [place] [address] Krysta Charles PAINT PROCESS ENGINEER HOME VISIT 01/18/2025 Telephone [facility] Internal Medicine [address], [place] [phone] Antione Segura PA-C Medication Question (Gabapentin) 01/18/2025 Episode Documentation Update [facility] [address] [place] [phone] Comey, Mayra 01/17/2025 2:30 PM EDT Home Care Visit [facility] [address] [place] [phone] Krysta Charles PAINT PROCESS ENGINEER HOME VISIT 01/17/2025 Telephone [facility] Internal Medicine [address] [place] [address] Elida Lindquist, UHA VNA Orders 01/15/2025 Episode Documentation Update [facility] [address] [place] [address] Comemikal, Mayra 01/14/2025 Home Care Visit [facility] [address] [phone] Raya Howard, PT TELEPHONE ENCOUNTER 01/12/2025 Refill [facility] Internal Medicine [address] [place] [address] Antione Segura PA-C Medication Refill 01/12/2025 Telephone [facility] Internal Medicine [address] [place] [address] Antione Segura PA-C VNA Orders 01/11/2025 10:00 AM EDT Home Care Visit [facility] [address] [place] [address] Shakira Hand, HUA SN HOME VISIT 01/11/2025 Episode Documentation Update [facility] [address] [place] [address] Comey, Mayra 01/10/2025 12:30 PM EDT Home Care Visit [facility] [address] [place] [address] Shakira Hand, RN SN OASIS RESUMPTION OF CARE (VERONIKA) 01/10/2025 Telephone [facility] Internal Medicine [address] [place] [address] Antione Segura PA-C Referral (Pulmonology referral update to urgent) 01/09/2025 3:00 PM EDT Home Care Visit [facility] [address] [place] [phone] Shakira Hand RN SN OASIS TRANSFER 01/09/2025 Home Health Resumption of Care Planning [facility] [address] [place] [phone] Koki Simons RN 01/04/2025 Orders Only [facility] Internal [facility] [address], [place] [phone] Omar Cooley MD 01/04/2025 Telephone [facility] Internal Medicine [address], [place] [phone] Antione Segura PA-C Shortness of Breath 01/04/2025 Telephone [facility] [address] [place] [phone] Brittnee Vigil MD 01/02/2025 1:00 PM EDT Home Care Visit [facility] [address] [place] [phone] Shakira Hand RN SN HOME VISIT 01/02/2025 Telephone [facility] Internal Medicine [address], [place] [phone] Eliana Prabhakar, ANGELINA Follow-up 01/01/2025 Home Care Visit [facility] [address] [place] [phone] Claudia Charles, PT PT EVALUATION 12/29/2024 12:00 PM EDT Home Care Visit [facility] [address] [place] [address] Shakira Hand, HUA SN HOME VISIT 12/28/2024 3:00 PM EDT Office Visit [facility] Internal Medicine [address], [place] [phone] Eliana Prabhakar, BYPRODUCT ENGINEER Acute on chronic hypoxic respiratory failure (Primary Dx); Persistent cough; Anxiety; Trigeminal neuralgia; 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; Occipital neuralgia of left side; Acute congestive heart failure, unspecified heart failure type; Benign essential hypertension; Irritable bowel syndrome with both constipation and diarrhea; Chronic low back pain, unspecified back pain laterality, unspecified whether sciatica present 12/28/2024 Telephone [facility] Internal Medicine [address], [place] [phone] Antione Segura PA-C VNA Orders 12/28/2024 Plan of Care Documentation [facility] [address] [place] [address] 12/27/2024 3:00 PM EDT [facility] [address] [place] [address] Shakira Hand, HUA SN OASIS START OF CARE (SOC) 12/26/2024 Refill [facility] Internal Medicine [address], [place] [phone] Antione Segura PA-C Medication Refill 12/26/2024 Documentation [facility] Internal Medicine [address], [place] [phone] Antione Segura PA-C 12/25/2024 Home Care Visit [facility] [address] [place] [address] Lelo Roa RN NON ADMIT HOME HEALTH VISIT 12/25/2024 Orders Only [facility] [address] [place] [address] Homehealth, Interface Provider, 12/23/2024 Home Care Visit [facility] [address] [place] [address] Maritza Calix, RN CASE COMMUNICATION 12/22/2024 Orders Only [facility] Internal Medicine [address] [place] [address] Omar Cooley MD 12/20/2024 Telephone [facility] Internal Medicine [address] [place] [address] Antione Segura PA-C TCM Visit (Unable to schedule) 12/18/2024 Orders Only [facility] [address] [place] [address] Homehealth, Raeann Cooley MD 12/18/2024 Home Care Visit [facility] [address] [place] [address] Shakira Hand RN SN NON OASIS DISCHARGE NON VISIT/TELEPHONE 12/14/2024 5:35 AM EDT - 12/14/2024 11:59 PM EDT Hospital Encounter [facility] [address] [place] [address] Nba Roberson MD Discharge Disposition: Home or Self Care 12/11/2024 Home Care Visit [facility] [address] [place] [address] Lelo Roa RN CASE COMMUNICATION 12/11/2024 Refill [facility] Internal Medicine [address], [place] [phone] Sirisha Huertas FNP Medication Refill 12/09/2024 Home Care Visit [facility] [address] [place] [address] Maritza Calix, RN CASE COMMUNICATION 12/08/2024 Home Care Visit [facility] [address] [place] [address] Lelo Roa RN TELEPHONE ENCOUNTER 12/06/2024 Home Health Resumption of Care Planning [facility] [address] [place] [phone] Diana Torres RN 12/01/2024 Home Care Visit [facility] [address] [place] [phone] Lelo Roa, RN SN OASIS TRANSFER 12/01/2024 Orders Only [facility] Internal Medicine [address], [place] [phone] Provider, MD Omar 11/29/2024 4:40 PM EDT Office Visit [facility] Internal [facility] [address], [place] [phone] Antione Segura PA-C Acute congestive heart failure, unspecified heart failure type (Primary Dx) 11/28/2024 Telephone [facility] Internal Medicine [address], [place] [phone] Antione Segura PA-C Shortness of Breath; Leg Swelling 11/23/2024 11:40 AM EDT Office Visit [facility] Internal Medicine [address], [place] [phone] Sue Springer PA-C Benign essential hypertension (Primary Dx) 11/23/2024 Telephone [facility] Internal Medicine [address], [place] [phone] Antione Segura PA-C Referral 11/23/2024 Telephone [facility] Internal Medicine [address], [place] [phone] Antione Segura PA-C Hypertension 11/22/2024 5:30 AM EDT Home Care Visit [facility] [address] [place] [phone] Rich Mariscal LPN HOME VISIT 11/22/[address] [phone] Maribel London TCM Visit; feet cramping 11/22/2024 Home Care Visit [facility] [address] [place] [phone] Samson Nolan Jr. PAINT PROCESS ENGINEER HOME VISIT 11/20/2024 Orders Only [facility] Internal Medicine [address] [place] [address] Provider, MD Omar 11/17/2024 Refill [facility] Internal Medicine [address] [place] [address] Antione Segura PA-C from Last 3 Months Immunizations Immunization Administration [...] Pulse 67 02/15/2025 9:02 AM EDT Temperature 36.1 C (97 F) 02/14/2025 1:45 PM EDT Respiratory Rate 21 02/15/2025 9:02 AM EDT Oxygen Saturation 95% 02/15/2025 9:02 AM EDT Inhaled Oxygen Concentration - - Weight 95.7 kg (211 lb) 02/15/2025 9:02 AM EDT Height 156.2 cm (5' 1.5 ) 02/15/2025 9:02 AM EDT Body Mass Index 39.23 02/15/2025 9:02 AM EDT Plan of Treatment Upcoming Encounters Date Type Department Care Team (Late st Contact Info) Description 02/19/2025 1:00 AM EDT [facility] [address] [place] [address] Krysta Charles [address] [place] [address] 02/21/2025 11:00 AM EDT Appointment [facility] [address], [place] [phone] Shakira Hand RN [address] [place] [address] 03/28/2025 9:40 AM EDT Office Visit [facility] [address] [place] [address] Antione Segura PA-C [address] [place] [address] 06/25/2025 9:30 AM EST Telemedicine [facility] Neurology [address] [place] [address] [place] [address] Jn Cardoza MD [address] [facility], [address]nd [place] [address] [email or web address] Health Maintenance Due Date Last Done Comments [...] 10/02/2020, 09/11/2020 REPEAT PHQ 03/03/2025 01/31/2025, 01/31/2025 BLOOD PRESSURE 08/15/2025 02/15/2025 DEPRESSION SCREENING 01/31/2026 01/31/2025, 02/01/20 25 CREATININE LEVEL 02/08/2026 02/08/2025, 03/2025, 12/14/2024, Additional history exists POTASSIUM LEVEL 02/08/2026 02/08/2025, 12/12, 12/14/2024, Additional history exists SMOKING Hx and SMOKELESS TOBACCO SCREENING 02/15/2026 02/15/2025 LIPID PANEL 08/22/2026 08/22/2021, 08/12, 02/26/2020, Additional history exists MAMMOGRAM 02/14/2027 02/14/2025, 05/14, 09/01/2021, Additional history exists SCREENING FOR DIABETES 12/15/2027 [...] HM MAMMOGRAPHY Routine 02/14/2025 2:39 PM EDT OUTSIDE POTASSIUM LEVEL Routine 02/08/2025 OUTSIDE SERUM [...] REPORT ONLY Routine 11/18/2024 9:[address] CHEST LUNG CANCER SCREENING ANNUAL Routine 08/27/2022 9:07 AM EDT Nicotine dependence, cigarettes, uncomplicated LIPID PANEL Routine 08/22/2021 8:13 AM EST Mixed hyperlipidemia PAP TEST Routine 02/22/2020 12:00 AM EDT HEPATITIS C ANTIBODY, QUALITATIVE Routine 05/25/2019 10:24 AM EST Need for hepatitis C screening test COLONOSCOPY FOR RESULT ENTRY ONLY Routine 12/04/2013 from Last 3 Months or Most Recently Relevant to Health Maintenance Results * Outside US Breast Report Only (02/14/2025 4:39 PM EDT) us Historical Provider IMG US BREAST Final Res ult * MAMMOGRAPHY FOR RESULT ENTRY ONLY (02/14/2025 2:39 PM EDT) us Historical Provider HEALTH MAINTENANCE Final Result * Outside Potassium Level (02/08/2025) Only the most recent of2 resultswithin the time period is included. Potassium level - External 3.8 3.4 - 5.0 mmol/L Result Pending sale to [facility] MD LAB BLOOD ORDERABLES Mariya l Result * (ABNORMAL) Outside Serum Creatinine Level (02/08/2025) Only the most recent of2 resultswithin the time period is included. Creatinine, serum - External 0.66(A) 0.8 - 1.3 mg/dL Result [facility] LAB BLOOD ORDERABLES Mariya l Result * Outside ALT Level (02/05/2025) Only the most recent of2 resultswithin the time period is included. ALT - External 15 5 - 30 U/L Result Pending sale to [facility] MD LAB BLOOD ORDERABLES Mariya l Result * Outside XR??Chest Report Only (01/04/2025 1:21 PM EDT) Result [facility] Provider IMG XR CHEST Final Res ult * Outside Imaging Report Only (12/21/2024 1:01 PM EDT) Result [facility] Provider MD IMG XR CHEST Final Res ult * Outside Imaging Report Only (12/21/2024 10:25 AM EDT) Result [facility] Provider IMG XR CHEST Final Res ult * Outside Imaging Report Only (12/21/2024 8:15 AM EDT) Result [facility] Provider IMG XR CHEST Final Res ult * Outside Imaging Report Only (12/21/2024 8:12 AM EDT) Result Pending sale to [facility] MD IMG XR CHEST Final Res ult * (ABNORMAL) Comprehensive metabolic panel (12/14/2024 4:45 AM EDT) SODIUM 140 133 - 146 mmol/L [facility] POTASSIUM 3.8 3.3 - 5.1 mmol/L [facility] CHLORIDE 97 96 - 108 mmol/L [facility] CO2 34 21 - 35 mmol/L [facility] BUN 19 6 - 19 mg/dL [facility] CREATININE 0.70 0.5 - 1.5 mg/dL [facility] GLUCOSE 87 70 - 99 mg/dL [facility] ALBUMIN 4.0 3.9 - 4.8 g/dL [facility] TOTAL PROTEIN 6.2(L) 6.5 - 8.0 g/dL [facility] CALCIUM 9.8 8.4 - 10.3 mg/dL [facility] ALKALINE PHOSPHATASE 63 39 - 117 U/L [facility] TOTAL BILIRUBIN <0.2 0.0 - 1.2 mg/dL [facility] AST 11 0 - 37 U/L [facility] ALT 10 0 - 40 U/L [facility] GLOBULIN 2.2 1 - 4.8 g/dL [facility] EGFR 98 >59 mL/min/1.7 3m2 [facility] Comment:Estimated glomerular filtration rate calculated using the CKD-EPI refit equation. ANION GAP 13 10 - 20 mmol/L [facility] Blood 12/14/2024 4:45 AM EDT 12/14/2024 6:03 AM EDT us Jn Cardoza MD LAB BLOOD ORDERABLES Final Resul t [facility] [address] [place] [address] * (ABNORMAL) CBC and differential (12/14/2024 4:45 AM EDT) WBC 14.11(H) 4.00 - 11.00 K/uL [facility] RBC 3.99(L) 4.00 - 5.20 M/uL [facility] HGB 12.7 12.0 - 16.0 g/dL [facility] HCT 40.1 36.0 - 46.0 % [facility] PLT 394 150 - 450 K/uL [facility] MCV 100.5(H) 80.0 - 100.0 fL [facility] MCH 31.8(H) 27.0 - 31.0 pg [facility] MCHC 31.7(L) 32.0 - 36.0 g/dL [facility] RDW 13.5 11.5 - 14.5 % [facility] MPV 9.2 8.4 - 12.0 fL [facility] NRBC 0.00 0.00 /100 WBCs [facility] ABSOLUTE NRBC 0.00 0.00 K/uL [facility] DIFF METHOD Auto [facility] NEUTS 72.2 48.0 - 76.0 % [facility] LYMPHS 15.0(L) 18.0 - 41.0 % [facility] MONOS 9.9 4.0 - 11.0 % [facility] EOS 1.4 0.0 - 5.0 % [facility] BASOS 0.4 0.0 - 1.5 % [facility] Granulocytes, immature (%) 1.1(H) 0.0 - 0.9 % [facility] [facility] ABS[facility]UTE NEUTS 10.20(H) 1.92 - 7.60 K/uL [facility] ABSOLUTE LYMPHS 2.11 0.72 - 4.10 K/uL [facility] ABSOLUTE MONOS 1.39(H) 0.16 - 1.10 K/uL [facility] ABSOLUTE EOS 0.20 0.00 - 0.50 K/uL [facility] ABSOLUTE BASOS 0.05 0.00 - 0.15 K/uL [facility] Granulocytes, immature 0.16(H) 0.00 - 0.09 K/uL [facility] Blood 12/14/2024 4:45 AM EDT 12/14/2024 6:03 AM EDT us Jn Cardoza MD LAB BLOOD ORDERABLES Final Resul t [facility] [address] [place] [address] * Outside CT Head/Neck Report Only (12/01/2024 4:44 PM EDT) us Historical Provider MD DAWKINS CT HEAD/NECK Final Re sult * Outside CT Abd/pelvis Report Only (12/01/2024 4:26 PM EDT) Historical Provider MD IMG CT ABD/PELVIS Final R esult * Outside CT??Chest Report Only (11/30/2024 3:48 PM EDT) Historical Provider MD IMG CT CHEST Final Res ult * Outside XR??Chest Report Only (11/30/2024 3:38 PM EDT) Historical Provider MD IMG XR CHEST Final Res ult * Outside Imaging Report Only (11/18/2024 10:58 AM EDT) Historical Provider MD IMG XR CHEST Final Res ult * Outside XR??Chest Report Only (11/18/2024 9:13 AM EDT) Historical Provider MD IMG XR CHEST Final Res ult * Outside XR??Chest Report Only (11/18/2024 9:09 AM EDT) Result [facility] Provider MD IMG XR CHEST Final Res ult * CT CHEST LUNG CANCER SCREENING ANNUAL [...] lesions Procedure Note Jenny Celestin MD - 08/28/2022 CT CHEST LUNG CANCER SCREENING ANNUAL TECHNIQUE: [...] the Lung-RADS categories can be found at:[email or web address] us Lang Germain MD IM CT CHEST Final Result * (ABNORMAL) Lipid panel (08/22/2021 8:13 AM EST) HDL 54 mg/dL [facility] Comment: Interpretation <40 mg/dL: Low HDL cholesterol (major risk factor for CHD) Greater than or equal to 60 mg/dL: High HDL cholesterol ( negative risk factor for CHD) HDL - cholesterol is affected by a number of factors, e.g. smoking, excerise, hormones, sex and age. CHOLESTEROL 237 0 - 240 mg/dL [facility] TRIGLYCERIDES 201(H) 30 - 160 mg/dL [facility] LDL 143(H) 50 - 129 mg/dL [facility] Comment: LDL levels in terms of risk for coronary heart disease: <100 mg/dL: Optimal 100-129 mg/dL: Near or above optimal 130-159 mg/dL: Borderline high 160-189 mg/dL: High >190 mg/dL: Very High CARDIAC RISK RATIO 4.4 3.3 - 4.4 C [facility] Blood 08/22/2021 8:13 AM EST 08/22/2021 8:17 AM EST us Jennifer Duke NP LAB BLOOD ORDERABLES Final Resu lt [facility] [address] [place] [address] * Pap Smear (02/22/2020 12:00 AM EDT) 02/22/2020 02/23/2020 8:2 1 AM EDT Narrative SEE NARRATIVE - 02/27/2020 11:20 AM EDT [address] [address] Computer Systems Designer: Perla Luis MD MANAGER REGISTRATION Cytology Report FINAL DIAGNOSIS A. PAP SMEAR [...] 52, 56, 58, 59, 66, 68) by Basys Onclarity HR-HPV analysis. Clinical correlation is advised. This HPV test was performed at [facility], [address] [place] [address]. This test has been FDA approved for SurePath cervical cytology specimens. The accuracy and precision of this test for all other specimen sources has been verified in the Cytopathology Laboratory of the [facility] and has not been cleared or approved by the U.S. Food and Drug Administration. Clinical correlation is advised. CLINICAL HISTORY Date of Last Menstrual Period: 2009 Menstrual History: Post Menopausal Other Clinical Conditions: Screening Pap SPECIMEN SOURCE A: PAP SMEAR (SUREPATH) CE Patient Name: MAYRA CONSTANTINO : 1965 (Age: 55) Sex: F Institution: [facility] Location: [facility] Date of Collection: 02/22/2020 Date of Reported: 02/27/2020 11:20 Results to: Jennifer Duke MSN, BSN us Jennifer Duke RECORDS MANAGER CYTOLOGY ORDERABLES Final Resul t Performing Organization Address City/[facility] [place]/ZIP Co de Phone Number SEE NARRATIVE * Hepatitis C antibody, qualitative (05/25/2019 10:24 AM EST) HCV NON-REACTIV E NON-REACTI VE [facility] Blood 05/25/2019 10:2 4 AM EST 05/25/2019 10:26 AM EST us Jennifer Duke NP LAB BLOOD ORDERABLES Final Resu lt Performing Organization Address City/[facility] [place]/ZIP Co de Phone Number [address] [address] * COLONOSCOPY FOR RESULT ENTRY ONLY (12/04/2013) Colonoscopy repeat 10 yrs us Historical Provider MD HEALTH MAINTENANCE Final Result from Last 3 Months or Most Recently Relevant to Health Maintenance Insurance [facility] MEDICARE A [facility] Address: [facility] [id number] [place], [place] [id number] MEDICARE A [facility] A [facility] [address] [facility] A Member Subscriber Plan / Payer (Ef fective 2020-Present) Name:Mayra Constantino Member ID:[id number] Relation to Subscriber:Self Name:Mayra Constantino Subscriber ID:[id number] Payer ID:[id number] Group ID:Not on file Type:Medicare Address: [facility] [address] [address] [facility] A Advance Directives For more information, please contact: [phone] (9AM - 5PM [facility], Wednesday-Wednesday) Documents on File Type Date Recorded 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 MOLST * Full Code (Latest Code Status on File) Date Activated Date Inactivated Comments 02/15/2025 9:52 AM Question Answer Comments Code Status Confirmed With: Patient Care Teams Vp Research Relationship Specialty Start Date End Date Antione Segura PA-C [address] [place] [phone] [email or web address] PCP - General Physician Communication Coordinator 10/12/24 Jn Cardoza MD [address] [place] [phone] [email or web address] Neurology 02/03/24 Denys Henriquez MD [address] [place] [address] [place] [address] Pulmonary Disease 02/03/24 Rhett Cortez MD [address] [place] [address] [email or web address] Insurance Assigned Provider 01/20/25 Additional Source Comments The information contained in this document represents components of the legal health record. It is not the complete legal health record.[facility]
== END 2025-02-17 09:54 | disposition home or self-care (01) ==
LOC: HO.CT 09:53
PROVIDERS: PCP Physician Assistant Surgical; Visit Provider Hospitalist
DX: R91.8 Other nonspecific abnormal finding of lung field (principal); J18.9 Pneumonia, unspecified organism
CPT/HCPCS: 71250

== ENCOUNTER → 2025-02-17 09:55 | Outpatient (BNV) | payer BC, SELFPAY | PROVIDERS: PCP Physician Assistant Surgical; Visit Provider Radiology Diagnostic Radiology | DX: R91.8 Other nonspecific abnormal finding of lung field (principal) | CPT/HCPCS: 71250 ==

== ENCOUNTER 2025-02-21 09:25 | Outpatient (AMB) | payer BC, SELFPAY ==
--- OUTSIDE RECORDS SUMMARY | 2025-02-16 | XMS_ITS | Encounter Summary ---
Author Organization [facility] Address [address] [address] Phone Care Team Providers Care Motor Tune Up Specialist Name Role Phone Jn Cardoza MD Unavailable Denys Henriquez MD Unavailable [phone] Antione Segura PA-C Primary Care Provider Rhett Cortez MD Unavailable Reason for Visit * Auth/Cert (Routine) Specialty Diagnoses / Procedures Referred By Dary smith Referred To Contact Referral ID Status Reason Start Date Expiration Date Visits Re quested Visits Authorized [id number] 1 1 Encounter Details Date Type Department Care Team (Late st Contact Info) Description 02/16/2025 Home Care Visit [facility] [address] [place] [phone] Krysta Charles [address] [place] [address] [email or web address] 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 HOME VISIT Social History Tobacco Use Types [...] high school, GED, job training, learning the [place] language, technical skills, or developing parenting skills)? [...] Care Team (Late st Contact Info) Description 02/23/2025 2:00 AM EDT [facility] [address] [place] [phone] Krysta Charles [address] [place] [address] 03/28/2025 9:40 AM EDT Office Visit [facility] Internal Medicine [address] [place] [address] Antione Segura PA-C [address] [place] [address] 06/25/2025 9:30 AM EST Telemedicine [facility] Neurology [address] [place] [address] Jn Cardoza MD 22 [facility], 2nd [place] [address] documented as of this encounter Visit Diagnoses Not on filedocumented in this encounter Additional Health Concerns Assessment Noted Time PHQ-9 Depression Total Score: 15 025 9:44 AM EDT PHQ-2 Depression Total Score: 4 02/01/20 25 9:44 AM EDT documented as of this encounter Home Health Visit - Care Plan Visit Details Visit Type -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 HOME 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 Discipline -Home Health Aide Problems [...] Scheduled documented in this encounter Care Teams Motor Tune Up Specialist Relationship Specialty Start Date End Date Antione Segura PA-C [address] [place] [address] PCP - General Physician Coremaker Helper 10/12/24 Jn Cardoza MD [address] [place] [address], [address] [place] [address] Neurology 02/03/24 Denys Henriquez MD [address] [place] [address] [place] [address] Pulmonary Disease 02/03/24 Rhett Cortez MD [address] [place] [phone] [email or web address] Insurance Assigned Provider 01/20/25 documented as of this encounter Additional Source Comments The information contained in this document represents components of the legal health record. It is not the complete legal health record.[facility]
--- OUTSIDE RECORDS SUMMARY | 2025-02-19 09:00 | XMS_ITS | Encounter Summary ---
Author Organization [facility] Address [address] [place] [address] Phone Care Team Providers Care Change Consultant Name Role Phone Jn Cardoza MD Unavailable Denys Henriquez MD Unavailable Antione Segura PA-C Primary Care Provider [phone] Rhett Cortez MD Unavailable Reason for Visit * Auth/Cert (Routine) Specialty Diagnoses / Procedures Referred By Dary smith Referred To Contact Referral ID Status Reason Start Date Expiration Date Visits Re quested Visits Authorized [id number] 1 1 Encounter Details Date Type Department Care Team (Late st Contact Info) Description 02/19/2025 9:00 AM EDT Home Care Visit [facility] [address] [place] [address] Krysta Charles [address] [place] [address] [email or web address] DIRECTOR OF OPERATIONS HOME HEALTH HOME VISIT Social History Tobacco Use Types [...] high school, GED, job training, learning the Hungarian language, technical skills, or developing parenting skills)? [...] 02/23/2025 2:00 AM EDT Home Care Visit [facility] [address] [place] [phone] CharlesKrysta [address] [place] [phone] 03/28/2025 9:40 AM EDT Office Visit [facility] Internal Medicine [address] [place] [address] Antione Segura PA-C [address] [place] [address] 06/25/2025 9:30 AM EST Telemedicine [facility] Neurology [address] [place] [phone] Jn Cardoza MD [address] [facility], 2nd [place] [address] documented as of this encounter Visit Diagnoses Not on filedocumented in this encounter Additional Health Concerns Assessment Noted Time PHQ-9 Depression Total Score: 15 025 9:44 AM EDT PHQ-2 Depression Total Score: 4 02/01/20 25 9:44 AM EDT documented as of this encounter Home Health Visit - Care Plan Visit Details Visit Type -DIRECTOR OF OPERATIONS HOME HEALTH HOME VISIT Discipline -Home Health Aide Problems [...] Scheduled documented in this encounter Care Teams Change Consultant Relationship Specialty Start Date End Date Antione Segura PA-C [address] [place] [phone] [email or web address] PCP - General Physician Tie Inspector 10/12/24 Jn Cardoza MD [address] [place] [address], [address] [place] [address] Neurology 02/03/24 Denys Henriquez MD [address] [place] [address] [place] [address] Pulmonary Disease 02/03/24 Rhett Cortez MD [address] [place] [address] [email or web address] Insurance Assigned Provider 01/20/25 documented as of this encounter Additional Source Comments The information contained in this document represents components of the legal health record. It is not the complete legal health record.[facility]
--- OUTSIDE RECORDS SUMMARY | 2025-02-19 10:30 | XMS_ITS | Encounter Summary ---
Author Organization [facility] Address [address] [place] [address] Phone Care Team Providers Care Staff Nurse Midwife Name Role Phone Jn Cardoza MD Unavailable Denys Henriquez MD Unavailable Antione Segura PA-C Primary Care Provider Rhett Cortez MD Unavailable Reason for Visit * Auth/Cert (Routine) Specialty Diagnoses / Procedures Referred By Dary smith Referred To Contact Referral ID Status Reason Start Date Expiration Date Visits Re quested Visits Authorized [id number] 1 1 Encounter Details Date Type Department Care Team (Late st Contact Info) Description 02/19/2025 10:30 AM EDT Home Care Visit [facility] [address] [place] [address] Shakira Hand RN [address] [place], [place] [phone] [email or web address] SN PRN HOME VISIT Social History Tobacco Use Types [...] high school, GED, job training, learning the Mosotho language, technical skills, or developing parenting skills)? [...] Sign Reading Time Taken Comments Blood Pressure 148/74 02/19/2025 10:45 AM EDT Pulse 84 02/19/2025 10:45 AM EDT Temperature 36.6 C (97.8 F) 02/19/2025 10:45 AM EDT Respiratory Rate - - Oxygen Saturation 96% 02/19/2025 10:45 AM EDT Inhaled Oxygen Concentration - - Weight - - Height - - Body Mass Index - - documented in this encounter Plan of Treatment Upcoming Encounters Date Type Department Care Team (Late st Contact Info) Description 02/23/2025 2:00 AM EDT Home Care Visit [facility] [address] [place] [address] Krysta Charles [address] [place] [phone] 03/28/2025 9:40 AM EDT Office Visit [facility] Internal Medicine [address] [place] [address] Antione Segura PA-C [address] [place] [address] [email or web address] 06/25/2025 9:30 AM EST Telemedicine [facility] Neurology [address] [place] [address] Jn Cardoza MD [address] [facility], [address]nd [place] [address] [email or web address] documented as of this encounter Visit Diagnoses Not on filedocumented in this encounter Additional Health Concerns Assessment Noted Time PHQ-9 Depression Total Score: 15 025 9:44 AM EDT PHQ-2 Depression Total Score: 4 02/01/20 25 9:44 AM EDT documented as of this encounter Home Health Visit - Care Plan Visit Details Visit Type -SN PRN HOME VISI T Discipline -Assisted Problems Problem Description Start Date Status Goals Interve ntions HH - Cardiovascular Function - Impaired Disciplines: All Active Home Health Disciplines 12/27/2024 Active 1 goal linked to scheduled/documen subhash intervention 1 goal intervention scheduled/document ed in this visit HH - Respiratory Status - Impaired Disciplines: All Active Home Health Disciplines 12/27/2024 Active 1 goal linked to scheduled/documen subhash intervention 3 goal interventions scheduled/document ed in this visit HH - Medication Management Disciplines: All Active Home Health Disciplines, Assisted 12/27/2024 Active 1 goal linked to scheduled/documen subhash intervention 2 problem interventions scheduled/document ed in this visit 2 goal interventions scheduled/document ed in this visit HH - Focus of Care and Teaching Disciplines: All Active Home Health Disciplines w/RD 12/27/2024 Active 1 goal linked to scheduled/documen subhash intervention 1 goal intervention scheduled/document ed in this visit HH - Emergency Planning - Knowledge of Disciplines: All Active Home Health Disciplines 12/27/2024 Active 1 goal linked to scheduled/documen subhash intervention 2 goal interventions scheduled/document ed in this visit HH - Infection - Actual or Risk of Disciplines: All Active Home Health Disciplines 12/27/2024 Active 1 goal linked to scheduled/documen subhash intervention 1 goal intervention scheduled/document ed in this visit HH - Falls - Risk of Disciplines: All Active Home Health Disciplines 12/27/2024 Active 1 goal linked to scheduled/documen subhash intervention 1 goal intervention scheduled/document ed in this visit HH - Standard of Care Disciplines: All Active Home Health Disciplines 12/27/2024 Active 1 goal linked to scheduled/documen subhash intervention 5 goal interventions scheduled/document ed in this visit HH - Pain Disciplines: All Active Home Health Disciplines 12/27/2024 Active 1 goal linked to scheduled/documen subhash intervention 2 goal interventions scheduled/document ed in this visit Goals Goal Associated Problem Outcome Goal Met? Visit Notes HH - Demonstrate/verbalize management of cardiac disease, treatments, and s/s of complications HH - Cardiovascular Function - Impaired No HH - Demonstrate/verbalize causes, impacts, and management of respiratory condition resulting in adequate oxygenation and ventilation HH - Respiratory Status - Impaired No HH - Safe medication management, avoid unnecessary harm related to medication errors and/or interactions HH - Medication Management No HH - Communication and collaboration to achieve patient goals HH - Focus of Care and Teaching No HH - Knowledge of options for managing care in the event of an emergency related situation. HH - Emergency Planning - Knowledge of No HH - Patient will have no new infection; any new infection that occurs will be identified and treated promptly; existing infection will resolve without complication Description: Patient and caregiver(s) will demonstrate understanding of infection prevention, monitoring, and treatment as appropriate HH - Infection - Actual or Risk of No HH - Knowledge and management of fall prevention measures. HH - Falls - Risk of No HH - Achieve care management for a safe to home/community discharge from homecare HH - Standard of Care No HH - Frequency of pain interfering with patient's activity or movement will improve with activity or movement by discharge. Description: Pain will be managed over the course of care. Patient's acceptable level of pain is 1 - pain that doesn't interfere. HH - Pain No Interventions Intervention Associated Problem/Goal Status Variance Visit Notes HH - I/E cardiovascular function Description: cardiac disease management, energy conservation and prescribed activity level/restrictions, oxygen therapy, equipment use and safety and s/s of altered tissue perfusion Problem:HH - Cardiovascular Function - Impaired Goal:HH - Demonstrate/verbalize management of cardiac disease, treatments, and s/s of complications Completed - Respiratory specialized equipment: Description: CPAP: Problem:HH - Respiratory Status - Impaired Goal:HH - Demonstrate/verbalize causes, impacts, and management of respiratory condition resulting in adequate oxygenation and ventilation Completed - Oxygen Therapy Description: Dose, route, and frequency details are on the medication list. Problem:HH - Respiratory Status - Impaired Goal:HH - Demonstrate/verbalize causes, impacts, and management of respiratory condition resulting in adequate oxygenation and ventilation Completed - I/E respiratory disease management Description: breathing techniques, energy conservation, positioning and self-monitoring Problem:HH - Respiratory Status - Impaired Goal:HH - Demonstrate/verbalize causes, impacts, and management of respiratory condition resulting in adequate oxygenation and ventilation Completed - I/E medication management: administration, purpose, dosages, [...] Focus this Visit & Instruction Provided: PT REPORTS SHE CHOKED ON A COOKIE LAST NIGHT AROUND 9PM. COUGHING LASTED FOR ABOUT 3HRS. OXYGEN WAS INCAREASED TO 3L. WAS UNABLE TO USE HER NIV D/T IT NOT WORKING FROMPOWER OUTAGE. FIRST TIME THAT ITS LASTED THAT LONG. REPORTS SHE DOES INTERMITTENTLY COUGH OR CHOKE WHEN EATING FOODS. THIS MORNING PT REPORTS FEELING MUCH BETTER, NO WHEEZING OR COUGHING. ON 2L OXYGEN. HAS ALREADY ADMINISTERD A DUONEB. VS WNL, LS DIM PER BASELINE. SOME TRACE EDEMA TO BLE. TAKING MEDICATIONS ORDERED. 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 REINFORCED TO CONTINUE TO MONITOR FOR POSSIBLE SYMTPOMS OF PNA. Instruction Provided to: patient Response to Instruction/Teaching: Is partially able to teach back topics as evidenced by needs rienforcment. Plan for Next Visit Specific Focus & Education Needed: RESP ASSESS, O2 AND MED MANAGEMENT, COPD New Orders: Updated Discharge Plan: HH - [...] an emergency related situation. Completed HH - I/E infection Description: adhere to infection precautions, infection prevention measures and s/s of infection Problem: - Infection - Actual or Risk of Goal:HH - Patient will have no new infection; any new infection that occurs will be identified and treated promptly; existing infection will resolve without complication Completed HH - I/E fall prevention measures Description: diagnosis/age related changes/prior history of falls: symptoms and side effects of illness/injury/history of falls placing patient at increased risk for falls. may include management of dizziness/orthostasis, environmental hazards: modification of environment to include clear walkways, secure animals, and move frequently used items within reach, use of equipment, impaired functional mobility: supervision for mobility/activity, appropriate footwear and as indicated safe use of assistive device(s), pain affecting level of function: impact of pain on an increased risk of falls and poly pharmacy: side effects of medications placing a patient at high risk for a fall Problem: - Falls - Risk of Goal: - Knowledge and management of fall prevention measures. Completed HH - Assess vital signs, pulse oximetry, pain, and as indicated, orthostatic vital signs Description: use agency-specific parameters Problem: - Standard of Care Goal: - Achieve care management for a safe to home/community discharge from homecare Completed HH - Assess skin integrity Problem: - Standard of Care Goal:HH - Achieve care management for a safe to home/community discharge from homecare Completed HH - I/E safety measures, non-fall related Description: electrical safety, environmental safety, proper storage and disposal of medications, safe ADLs/IADLs and use and maintenance of smoke detectors Problem: - Standard of Care Goal:HH - Achieve care management for a safe to home/community discharge from homecare Completed HH - Assess safety needs of patient (other than falls) Problem: - Standard of Care Goal:HH - Achieve care management for a safe to home/community discharge from homecare Completed - Diet: Description: regular diet Problem: - Standard of Care Goal:HH - Achieve care management for a safe to home/community discharge from homecare Completed HH - Assess pain Problem: - Pain Goal: - Frequency of pain interfering with patient's activity or movement will improve with activity or movement by discharge. Completed HH - I/E pain management Problem:HH - Pain Goal:HH - Frequency of pain interfering with patient's activity or movement will improve with activity or movement by discharge. Completed documented in this encounter Care Teams Staff Nurse Midwife Relationship Specialty Start Date End Date Antione Segura PA-C [address] [place] [address] [email or web address] PCP - General Physician Director Process Engineering 10/12/24 Jn Cardoza MD [address] [facility], 2nd [place] [address] Neurology 02/03/24 Denys Henriquez MD [address] [place] [address] [place] [address] Pulmonary Disease 02/03/24 Rhett Cortez MD [address] [place] [address] [email or web address] Insurance Assigned Provider 01/20/25 documented as of this encounter Additional Source Comments The information contained in this document represents components of the legal health record. It is not the complete legal health record.[facility]
[2025-02-21 09:30] VITALS: BP 130/62; PULSE 79; O2SAT 96
--- NOTE | 2025-02-21 09:30 | A.OFFVIS_ITS ---
Vital Signs 02/21/25 09:30 Height 5 ft BMI Reason not done Patient refused/unable BP 130/62 Blood Pressure Location Lt brachial Position Sitting Pulse 79 Pulse Source Pulse Oximeter Pulse Oximetry (%) 96 Oxygen Delivery Method Nasal Cannula Oxygen Flow Rate 2 Intake Visit Reasons: COPD Weed Control Inspector Required: No Accompanied by: Spouse Allergies Iodinated Contrast Media (IV CONTRAST) Allergy (Intermediate, Verified 02/21/25 09:34) HIVES latex (LATEX) Allergy (Unknown, Verified 02/21/25 09:34) RASH adhesive tape Allergy (Verified 02/21/25 09:34) Rash morphine (MORPHINE) Adverse Reaction (Unknown, Verified 02/21/25 09:34) VOMITING HPI Comments Details: The patient is a 60 year woman with a known history of tobacco dependency and COPD. Apparently back in February she developed worsening respiratory symptoms and was admitted to the hospital with COPD exacerbation. While she was there the patient did have a CT scan of the chest which was personally reviewed by me. It appears patient does have underlying pulmonary nodules subcentimeter in size, as well as, emphysema evidence of bronchitis. The patient does use oxygen activity. She also benefits from using oxygen while sleeping. The patient also needs to quit smoking. She understands the has is having oxygen and smoking. 07/19/2023 the patient is here for a pulmonary follow-up visit. Overall she is doing about the same. She has not using the oxygen regularly. She did have an overnight oximetry done several months ago on 2 L nasal cannula demonstrating that she actually does require the 2 L and actually would benefit from a little more oxygen. However, she has not using it at also I did advise her just to go back on using the oxygen. She has significant trigeminal neuralgia and neuropathy in general making it difficult for her to have anything over head and ear area. Therefore, she is going to have to figure out a way that would work for her. She does not tolerate a oxygen mask either because of the same problem. She is going to look to see if she can find a solution otherwise will can call [facility] [place] to see if they can help her. The patient unfortunately she continues to smoke cigarettes. She does want to quit she wants to try the Nicotrol nasal spray. Will send to the pharmacy for her to try. The patient also did have pulmonary function studies that [facility] last year. She does have significant COPD. We do not have those PFTs available at this time but we will request them. She will be a great candidate for pulmonary rehabilitation at this time. The patient also had a CT scan of the chest back in February 2023 demonstrating multiple nodules largest 1 measuring 5 mm in size. She is high risk for malignancy due to her smoking history therefore she will have a repeat CT scan the fall 2023. 01/20/2024 the patient is here for a pulmonary follow-up visit. The patient has been hospitalized now about 3 times since we last spoke. I did evaluate her in the hospital as well. Has had significant wheezing. Has been requiring prednisone. Indeed she may have an allergic component to her bronchospasms. She does have significant eosinophilia. therefore, will go ahead and request additional testing including allergy testing so we can address her persistent bronchospasms. Currently she is on 40 mg of prednisone. She only taper. We did go over her inhalers. She needs to also continue to use her nebulizer therapy 2 to 4 times a day. Trelegy inhaler will be effective for her. She will go ahead and start that inhaler and we did instruct her how to use it. The patient is also using her oxygen. We did do a brief walking oximetry to make sure that she was getting adequate oxygenation. She need to continue using 2 L with activity. She does not using her nose because it does aggravate her nose so therefore she does only get some administration. The patient also has underlying daytime drowsiness. It was documented the patient is snoring. She also has headaches in the morning. The patient does have an elevated Delphia score of 10/24. He is using oxygen with sleep. Will go ahead and request an in-lab sleep study at this time. 03/15/2024 the patient is here for a pulmonary follow-up visit. The patient is here for hospital follow-up visit. She has had multiple hospitalizations since the last visit. She has been having worsening respiratory symptoms. She is on currently on prednisone. She is tapering down. We did talk about her blood work demonstrating a low IgG level. I explained to her hypogammaglobulinemia can result in smoldering infections and could potentially worsen her respiratory issues and it could be driving her exacerbations. We talked about augmentation therapy. Will go ahead and repeat her levels once she is off the prednisone to see if she still low. If she is still low will talk about augmentation therapy further. In addition to that she did have a sleep study. It was an in-lab study. She did not have any evidence of sleep apnea. The patient actually just needs to be on oxygen. She can use 1 L at nighttime. We can always check an overnight oximetry on 1 L to make sure sufficient. In addition to that she is using the portable oxygen concentrator with did ask conserving device tank. The patient was walk today she needs 2 L pulse at rest and 3 L pulse with activity. When she is at home with the continue his oxygen she can stay on 2 liters/minute. Although when she is doing any kind strained his activity such as going up a flight of stairs or going showering she should be on 3 liters/minute. The patient feels comfortable with that. She continues use her respiratory therapy as prescribed. The patient did have a CT scan of the chest back in 03/03/2023 demonstrating multiple pulmonary nodules and chronic bronchitis. Largest nodule measuring 5 mm in size. She will need another CT scan now. The patient follow-up in 3-4 weeks and will review the CT scan at that time. 04/06/2024 the patient is here for a hospital follow-up visit. She was on hospital again. The patient required another course of steroids. She then subsequently to rehabilitation. She has been using her oxygen. We again reviewed her blood work demonstrating the significant immunodeficiency. Indeed her recurrent infections may be related to immunocompromised state in the treatment of augmentation therapy may be very reasonable for her to improve her quality of life decrease hospitalizations and improve her respiratory status. But for now she is on prednisone. Therefore will wait for to finish a prednisone recheck her levels to see if the levels continued to be low. If they are low then will go ahead and start her on IVIG therapy. If the levels are coming up then which is hold steady and see if they continue to rise when she is off the prednisone. She continues with respiratory therapy good effect. We did review her chest x-ray demonstrating no acute disease. We did review her allergy levels. There indeed elevated with an elevated IgE although her eosinophils are stable therefore not a candidate for Dupixent. However, will recheck her levels when she is off the prednisone to see if her eosinophils go about 300. 05/25/2024 the patient has a telehealth visit today. She was again in the hospital with nausea vomiting and she had dehydration. She is now better. She did require additional prednisone. Prior to the prednisone she did get the blood work demonstrating again on low IgG level. She is keeps getting admissions to the hospital because of bronchitis COPD exacerbations likely from ongoing infections. Therefore starting her on IVIG will be important. Her levels continue to be significantly low even off the prednisone. Her eosinophil levels are okay so therefore she is not a candidate for Dupixent. She continues use her oxygen good effect. She also continues with her respiratory therapy. 07/24/2024 the patient is here for a pulmonary follow-up visit. Overall the patient has been doing better. She was hospitalized briefly with another COPD exacerbation. Her chest x-ray was personally by me just demonstrating some evidence of bronchitis. No airspace disease noted. She was discharged and she has continued to use the oxygen. She is able to get a POC now and she is using at 2 L pulse. We did titrate her oxygen and she actually can just be on 2 L pulse with activity and if she is sitting down she can be on room air. Will go ahead request a repeat overnight oximetry on room air to see if she needs oxygen at nighttime. In the meantime she is going to continue with respiratory therapy. She also has been doing the IVIG which she will do every month. Does before the 4th dose she will get blood work done to check her IgG throw it make sure that her levels are reasonable. If not we can adjust them at that point. The patient also follow-up after that. We did talk about pulmonary rehabilitation. She had done it before. She will maybe benefit from it again specially as her respiratory condition seems to be getting better. She quit smoking back in April and this is a great accomplishment. I do believe that this will also help her recovery. 10/06/2024 the patient is here for a pulmonary follow-up visit. Overall she is doing okay. Beginning of the month she did have an exacerbation and went to the ER. She was given Solu-Medrol and sent home to use her noninvasive ventilator. Unfortunately she can not use a noninvasive ventilator regularly because she has trigeminal neuralgia and causes significant pain to wear the head gear. Therefore she is going to try some Lidoderm cream to the area. I do not want him to pre treat with lorazepam as she has in the past because is going to only suppress her respiratory drive. The patient has been using the oxygen with good effect. She has been having little bit more wheezy lately. I do believe that is likely to to allergies as her eosinophils are significantly elevated. Patient does have episodes of COPD with frequent exacerbations which will be a great candidate for Daliresp. Will go ahead and send Daliresp 500 mcg to the pharmacy. She is going to start taking slowly to both tolerance and then take it regularly. If she can not tolerate the Daliresp then she can always call and we can prescribe Ohtuvayre. She continues to get the IVIG every 4 weeks. We did check a trough recently and her IgG levels are better, but, she needs to continue with the every 4 week infusions since her trough is still low normal. She is wondering how long she is going to have to be on the IVIG therapy. I did tell her based on the fact that she her trough is still low she probably have to be on it for more than a year. Will reassess NSR levels continue to increase hopefully they do we can start extending it. 01/23/2025 the patient is here for hospital follow-up visit. She has been in the hospital frequently with worsening respiratory symptoms. Has had worsening shortness of breath. Had a an echocardiogram demonstrating moderate degree of diastolic dysfunction with a hyperdynamic EF. She also has moderate degree of aortic stenosis. This is not helping in view of her underlying advanced chronic respiratory failure and COPD. She had been in the hospital in her diuretics unfortunately that for her to be hypovolemic intravascularly depleted and therefore she was having issues with low blood pressures and sometimes she has fluctuations in her blood pressure. We did talk about the importance of being on some degree of diuretic in view of her cardiovascular disease. The patient needs to monitor closely her weight. We did come up with a protocol until she sees Cardiology. In the meantime she also has a noninvasive ventilator. She has a hard time tolerating it before because of her significant trigeminal neuralgia. We did come up with some advice how she can tackle those obstacles to try to tolerate the PAP therapy. She understands that the noninvasive ventilator will help her with her respiratory failure and will also help her with the decrease the work of the heart. She continues use her respiratory therapy and currently on prednisone as she recently went to the hospital was placed on a prednisone without a taper. Send her a taper at this time in order for her to slowly decrease the prednisone in view of her advanced disease. We also did look at her last CT scan of the chest that she had back in December 2024 demonstrating what appears to be a right middle lobe consolidation. We also looked at the CAT scan she had prior to that in 2023 and she had nothing there to suggest a progression. Therefore is only transient infection. She will need a repeat CAT scan in order to make sure that that areas subsides. She is on the IgG infusions. And she does have improvement in overall levels. She will be following up with a 2nd opinion I believe coming up soon. She is wondering about lung volume reduction interventions. View of her comorbidities I do not believe is a good idea for her to consider lung volume reduction interventions at this time specially she is a high risk for lower respiratory infections and she is also at high risk for pneumothoraces. 02/21/2025 the patient is here for pulmonary follow-up visit. Overall she has been feeling okay. She has not ended up back in the hospital which is reassuring. She continues use her inhalers as prescribed. The patient continues use the oxygen with a portable oxygen concentrator that has been affecting beneficial. In addition to that she continues use the NIV at night. Unfortunately she does struggle with it. Primarily because of the trigeminal neuralgia. The patient gets a lot of pain from the head gear. We did talk about some alternatives she can consider. She is going to look into some possibilities. In the meantime she does continue IgG infusions. Next when his next month. Her last IgG level was low normal which is reassuring she is going the right direction. Will continue to monitor her trough and then adjust her frequency accordingly. We did review her last CT scan of the chest which was personally by me. She does have some degree of air trapping some degree of emphysema but all-in-all lung parenchyma appears to be stable. She does have evidence of bronchitis and has some atelectasis and scarring at the bases. Subcentimeter nodules are stable which is reassuring. We are going to continue with the current therapy the patient will taper down her prednisone further down to 5 mg every other day. She is going to start pulmonary rehabilitation soon. In the meantime we did talk about online rehab and also playing the [employer] for COPD therapy. One of the major obstacles for her getting therapy is her dizziness when she stands up. She may have a component of benign positional vertigo. I did suggest she talk to her doctor about consider vestibular therapy. [facility] Medical History Pulmonary nodules Diastolic heart failure Leukocytosis Chronic lung disease Chronic lung disease Hypoxia Panic disorder Hypertension Chronic hypercapnic respiratory failure Aortic stenosis Obesity (BMI 30-39.9) Asthma Acute exacerbation of chronic obstructive pulmonary disease Chronic lung disease Hypogammaglobulinemia Smoker JUANITO (obstructive sleep apnea) Allergies Elevated troponin COPD (chronic obstructive pulmonary disease) Trigeminal neuralgia Mixed hyperlipidemia Peripheral neuropathy Tobacco use disorder Mood disorder Surgical History History of esophagogastroduodenoscopy (EGD) History of colonoscopy History of lumbar discectomy History of tubal ligation History of excision of mass History of shoulder surgery Social History Household Members: Spouse Household Members Other:: dog Housing: Condominium Do you presently have visiting nurse or other home services: Yes Alcohol intake: never Comment: rings appropriately Patient Tobacco Use Status: Former Tobacco user Tobacco use type: Cigarette Cigarette Packs Per Day: 4 Cigarettes Per Day: 80.0 Years Smoked: 40 e-Cigarette/Vaping Use: Never Used Second Hand Smoke Exposure: No Substance Use Type: Marijuana Advance Directives Date on File: 03/09/23 service: No Review of Systems Const Denies chills, Denies fatigue, Denies fever(s), Denies weight gain and Denies weight loss Eyes Denies change in vision ENT Denies dizziness Card Denies chest pain, Reports leg edema, Denies lightheadedness, Reports palpitations, Reports dyspnea on exertion, Reports orthopnea and Denies other Resp Reports cough, Reports dyspnea on exertion and Reports wheezing GI Denies hematochezia and Denies change in stool character Musc Reports abnormal gait, Reports muscle weakness, Denies numbness, Denies radiating pain into limb and Denies tingling Skin/Breast Denies rash Neuro Reports abnormal gait, Denies dizziness, Denies numbness and Denies tingling Endo Denies fatigue and Reports palpitations Luis/Lymph Denies lymphadenopathy Aller/Immun Reports no additional complaints and Reports wheezing Physical Exam Vital Signs: Last Vital Signs Pulse 79 02/21/25 09:30 BP 130/62 02/21/25 09:30 Pulse Ox 96 02/21/25 09:30 Oxygen Delivery Method Nasal Cannula 02/21/25 09:30 Oxygen Flow Rate 2 02/21/25 09:30 Last Vital Signs Temp 97.6 F 12/11/24 12:54 Pulse 85 12/11/24 12:54 Resp 20 12/11/24 12:54 BP 158/75 H 12/11/24 12:54 Pulse Ox 95 12/11/24 12:54 O2 Del Method Nasal Cannula 12/11/24 12:54 O2 Flow Rate 2 12/11/24 12:54 Oxygen Flow Rate 2 12/07/24 21:04 BMI result Body Mass Index 36.5 Const General: cooperative and alert Orientation/consciousness: patient oriented x3 HEENT Head: Yes normocephalic Chest Chest palpation & inspection: normal inspection of the chest Resp Effort & Inspection: normal respiratory effort and able to speak in complete sentences Auscultation: no wheezes and diminished lung sounds Cardio Heart sounds: S1 normal heart sound present, S2 normal heart sound present and Murmur heart sound present GI Palpation (GI): Soft to palpation Skin General skin exam: no rashes or lesions noted Neuro General: patient oriented x3 Extrem General: No clubbing, No cyanosis and Yes edema Results Reviewed Results Reviewed: personally reviewed VT chest with air trappig, some emphysema and atelectasis and stable nodules Assessment & Plan Assessment & Plan (1) COPD (chronic obstructive pulmonary disease): Code(s): J44.9 - Chronic obstructive pulmonary disease, unspecified Category: Medical Qualifiers: COPD type: chronic bronchitis Chronic bronchitis type: simple Qualified Code(s): J41.0 - Simple chronic bronchitis (2) Pulmonary nodules: Code(s): R91.8 - Other nonspecific abnormal finding of lung field Category: Medical (3) Allergies: Code(s): T78.40XA - Allergy, unspecified, initial encounter Category: Medical Qualifiers: Encounter type: initial encounter Qualified Code(s): T78.40XA - Allergy, unspecified, initial encounter (4) Hypogammaglobulinemia: Code(s): D80.1 - Nonfamilial hypogammaglobulinemia Category: Medical (5) Chronic lung disease: Code(s): J98.4 - Other disorders of lung Category: Medical (6) Aortic stenosis: Code(s): I35.0 - Nonrheumatic aortic (valve) stenosis Category: Medical Qualifiers: Cardiac valve disease etiology: etiology unspecified Qualified Code(s): I35.0 - Nonrheumatic aortic (valve) stenosis (7) Diastolic heart failure: Code(s): I50.30 - Unspecified diastolic (congestive) heart failure Category: Medical Qualifiers: Heart failure chronicity: chronic Qualified Code(s): I50.32 - Chronic diastolic (congestive) heart failure Plan Stopped Trelegy continue Breztri PAMELA as needed decrease Prednisone 5mg daily ->then QOD continue IVIG augmentation therapy continue oxygen supplementation with activity Lasix 10mg x days, then PRN wt gain LDCT program continue oxygen 1L/min while sleeping, 2l/pulse with activity (Has POC) PAP therapy while sleeping, will try to work arounf the trigeminal neuralgia Consider vestibular therapy for her dizziness/vertigo F/U 2-3 months Medications: New prednisone 5 mg PO DAILY 30 tabs 11RF 30 days Coding Level of Care Code Est Pt Level 5 (03459) Complex EM visit Add On G2211 Diagnoses Simple chronic bronchitis J41.0 COPD type: chronic bronchitis Chronic bronchitis type: simple Pulmonary nodules R91.8 Allergy, initial encounter T78.40XA Encounter type: initial encounter Hypogammaglobulinemia D80.1 Chronic lung disease J98.4 Aortic valve stenosis, etiology of cardiac valve disease unspecified I35.0 Cardiac valve disease etiology: etiology unspecified Chronic diastolic heart failure I50.32 Heart failure chronicity: chronic Time Spent (min) 60
--- OUTSIDE RECORDS SUMMARY | 2025-02-21 11:15 | XMS_ITS | Encounter Summary ---
Author Organization [facility] Address [address] [address] Phone Care Team Providers Care [employer] Practitioner Name Role Phone Jn Cardoza MD Unavailable Denys Henriquez MD Unavailable Liyah Patterson MD Unavailable Antione Segura-C Primary Care Provider Rhett Cortez MD Unavailable Encounter Details Date Type Department Care Team (Late st Contact Info) Description 12/06/2024 Home Health Resumption of Care Planning [facility] [address] [place] [address] Diana Torres, RN [address] [place] [address] [email or web address] Social History Tobacco Use [...] high school, GED, job training, learning the Arabic language, technical skills, or developing parenting skills)? [...] 02/23/2025 2:00 AM EDT Home Care Visit [facility] [address] [place] [id number] Krysta Charles [address] [place] [address] 03/28/2025 9:40 AM EDT Office Visit [facility] Internal Medicine [address] [place] [address] Antione Segura PA-C [address] [place] [address] 06/25/2025 9:30 AM EST Telemedicine [facility] Neurology [address] [place] [address] Jn Cardoza MD [address] [facility], [address] [place] [address] documented as of this encounter Visit Diagnoses Not on filedocumented in this encounter Additional Health Concerns Assessment Noted Time PHQ-9 Depression Total Score: 21 025 12:31 PM EDT PHQ-2 Depression Total Score: 6 10/13/19 25 12:31 PM EDT documented as of this encounter Care Teams [employer] Practitioner Relationship Specialty Start Date End Date Antione Segura PA-C [address] [place] [address] [email or web address] PCP - General Physician Realtime Court Reporter 10/12/24 Jn Cardoza MD [address] [facility] [place] [address] [email or web address] Neurology 02/03/24 Denys Henriquez MD [address] [place] [address] [place] [address] Pulmonary Disease 02/03/24 Liyah Patterson MD [address] [facility] [address] [place] [address] [email or web address] Insurance Assigned Provider 02/19/24 01/20/25 Rhett Cortez MD [address] [place] [phone] [email or web address] Insurance Assigned Provider 01/20/25 documented as of this encounter Additional Source Comments The information contained in this document represents components of the legal health record. It is not the complete legal health record.[facility]
--- OUTSIDE RECORDS SUMMARY | 2025-02-21 11:15 | XMS_ITS | Encounter Summary ---
Author Organization [facility] Address [address] [address] Phone Care Team Providers Care High School Music Teacher Name Role Phone Jn Cardoza MD Unavailable Denys Henriquez MD Unavailable Liyah Patterson MD Unavailable Antione Segura-C Primary Care Provider [phone] Rhett Cortez MD Unavailable Encounter Details Date Type Department Care Team (Late st Contact Info) Description 01/09/2025 Home Health Res[facility] of [facility] [address] [place] [address] Koki Simons, HUA [address] [place] [address] Social History Tobacco Use Types Packs/Day Years [...] high school, GED, job training, learning the Syriac language, technical skills, or developing parenting skills)? [...] 2:00 AM EDT Home Care Visit [facility] [address] [place] [phone] Krysta Charles [address] [place] [address] 03/28/2025 9:40 AM EDT Office Visit [facility] Internal Medicine 40 [place] [address] Antione Segura PA-C [address] [place] [address] 06/25/2025 9:30 AM EST Telemedicine [facility] Neurology [address] [place] [address] Jn Cardoza MD 22 [facility], 2nd Floor [place], [place] [phone] documented as of this encounter Visit Diagnoses Not on filedocumented in this encounter Additional Health Concerns Assessment Noted Time PHQ-9 Depression Total Score: 20 025 9:08 PM EDT PHQ-2 Depression Total Score: 6 12/28/19 25 9:08 PM EDT documented as of this encounter Care Teams High School Music Teacher Relationship Specialty Start Date End Date Antione Segura PA-C [address] [place] [address] [email or web address] PCP - General Physician Client Representative 10/12/24 Jn Cardoza MD 22 [facility], 2nd [place] [address] [email or web address] Neurology 02/03/24 Denys Henriquez MD [address] [place] [address] [place] [address] Pulmonary Disease 02/03/24 Liyah Patterson MD 15 [facility] Subhash. [address] [place] [address] [email or web address] Insurance Assigned Provider 02/19/24 01/20/25 Rhett Cortez MD [address] [place] [address] [email or web address] Insurance Assigned Provider 01/20/25 documented as of this encounter Additional Source Comments The information contained in this document represents components of the legal health record. It is not the complete legal health record.[facility]
--- OUTSIDE RECORDS SUMMARY | 2025-02-21 11:15 | XMS_ITS | Encounter Summary ---
Author Organization [facility] Address [address] [place] [address] Phone Care Team Providers Care Senior Stereo Compiler Team Lead Name Role Phone Lang Gremain MD Unavailable Jennifer Duke TRANSFER TABLE OPERATOR Primary Care Provider Sirisha Huertas RESPIRATORY THERAPY DIRECTOR Primary Care Provider Jn Cardoza MD Unavailable Denys Henriquez MD Unavailable Liyah Patterson MD Unavailable Liyah Patterson MD Primary Care Provider [phone] Antione Segura PA-C Primary Care Provider Rhett Cortez MD Unavailable Encounter Details Date Type Department Care Team (Late st Contact Info) Description 11/27/2021 Procedure Pass [facility], [address] [place] [address] Social History Tobacco Use Types Packs/Day Years [...] 02/23/2025 2:00 AM EDT Home Care Visit [facility] 30 [place] [address] Krysta Charles [address] [place] [address] [email or web address] 03/28/2025 9:40 AM EDT Office Visit [facility] Internal Medicine [address] [place] [address] Antione Segura PA-C 40 [place] [address] [email or web address] 06/25/2025 9:30 AM EST Telemedicine [facility] Neurology 22 [place] [address] Jn Cardoza MD 22 [facility], 2nd [place] [address] documented as of this encounter Visit Diagnoses Not on filedocumented in this encounter Additional Health Concerns Assessment Noted Time PHQ-2 Depression Total Score: 0 05/25/20 19 9:02 AM EST documented as of this encounter Care Teams Senior Stereo Compiler Team Lead Relationship Specialty Start Date End Date Jennifer Duke, TRANSFER TABLE OPERATOR [address] [place] [address] [email or web address] PCP - General Family Medicine 01/31/20 06/22/23 Sirisha Huertas FNP [address] [place] [address] [email or web address] PCP - General Nurse Practitioner 06/23/23 08/03/24 Liyah Patterson MD [address] [place] [address] [email or web address] PCP - General Family Medicine 08/04/24 10/11/24 Antione Segura PA-C [address] [place] [address] [email or web address] PCP - General Physician Classification Analyst 10/12/24 Lang Germain MD [address] [place] [address] [email or web address] Insurance Assigned Provider 09/18/23 02/19/24 Jn Cardoza MD [address] [place] [address], 2nd [place] [address] [email or web address] Neurology 02/03/24 Denys Henriquez MD [address] [place] [address] [place] [address] Pulmonary Disease 02/03/24 Liyah Patterson MD [address] [place] [address] [email or web address] Insurance Assigned Provider 02/19/24 01/20/25 Rhett Cortez MD [address] [place] [address] [email or web address] Insurance Assigned Provider 01/20/25 documented as of this encounter Additional Source Comments The information contained in this document represents components of the legal health record. It is not the complete legal health record.[facility]
--- OUTSIDE RECORDS SUMMARY | 2025-02-21 11:15 | XMS_ITS | Encounter Summary ---
Author Organization [facility] Address [address] [place] [address] [place] [address] Phone Care Team Providers Care Transit Department Clerk Name Role Phone Lang Germain MD Unavailable Jennifer Duke APPAREL FASHION DESIGNER Primary Care Provider [phone] Sirisha Huertas NOZZLE TENDER Primary Care Provider Jn Cardoza MD Unavailable Denys Henriquez MD Unavailable [phone] Liyah Patterson MD Unavailable Liyah Patterson MD Primary Care Provider [phone] Antione Segura PA-C Primary Care Provider Rhett Cortez MD Unavailable Encounter Details Date Type Department Care Team (Late st Contact Info) Description 11/11/2021 Transcribe Orders [facility] PFT [facility] [address] [place] [address] Jennifer Duke, APPAREL FASHION DESIGNER 26 [facility] [address] [place] [address] [email or web address] Social History Tobacco Use Types Packs/Day Years [...] 2:00 AM EDT Home Care Visit [facility] 30 [place] [phone] CharlesKrysta [address] [place] [address] 03/28/2025 9:40 AM EDT Office Visit [facility] Internal Medicine 40 [place] [address] Antione Segura PA-C 40 [place] [address] 06/25/2025 9:30 AM EST Telemedicine [facility] Neurology [address] [place] [address] Jn Cardoza MD 22 [facility], 2nd [place] [address] [email or web address] documented as of this encounter Visit Diagnoses Not on filedocumented in this encounter Additional Health Concerns Assessment Noted Time PHQ-2 Depression Total Score: 0 05/25/20 9:02 AM EST documented as of this encounter Care Teams Transit Department Clerk Relationship Specialty Start Date End Date Jennifer Duke, [place] [address] [place] [address] [email or web address] PCP - General Family Medicine 01/31/20 06/22/23 Sirisha Huertas FNP [address] [place] [address] [email or web address] PCP - General Nurse Practitioner 06/23/23 08/03/24 Liyah Patterson MD [address] [place] [address] [email or web address] PCP - General Family Medicine 08/04/24 10/11/24 Antione Segura PA-C [address] [place] [address] [email or web address] PCP - General Physician Employment Appeals Examiner 10/12/24 Lang Germain MD [address] [place] [address] [email or web address] Insurance Assigned Provider 09/18/23 02/19/24 Jn Cardoza MD 22 [facility], 2nd [place] [address] [email or web address] Neurology 02/03/24 Denys Henriquez MD [address] [place] [address] [place] [address] Pulmonary Disease 02/03/24 Liyah Patterson MD [address] [place] [address] [email or web address] Insurance Assigned Provider 02/19/24 01/20/25 Rhett Cortez MD [address] [place] [address] [email or web address] Insurance Assigned Provider 01/20/25 documented as of this encounter Additional Source Comments The information contained in this document represents components of the legal health record. It is not the complete legal health record.[facility]
--- OUTSIDE RECORDS SUMMARY | 2025-02-21 11:15 | XMS_ITS | Encounter Summary ---
Author Organization [facility] Address [address] [place] [address] Phone Care Team Providers Care Recruiting Team Lead Name Role Phone Lang Germain MD Unavailable Jennifer Duke MEAL COOKER Primary Care Provider Sirisha Huertas TEST FIXTURE DESIGNER Primary Care Provider Jn Cardoza MD Unavailable Denys Henriquez MD Unavailable Liyah Patterson MD Unavailable Liyah Patterson MD Primary Care Provider [phone] Antione Segura PA-C Primary Care Provider Rhett Cortez MD Unavailable Encounter Details Date Type Department Care Team (Late st Contact Info) Description 02/25/2023 Procedure Pass [facility], [address] [address] Social History Tobacco Use Types Packs/Day Years [...] high school, GED, job training, learning the Mohawk language, technical skills, or developing parenting skills)? [...] 02/23/2025 2:00 AM EDT Home Care Visit [facility] 30 [place] [phone] Krysta Charles [address] [place] [address] 03/28/2025 9:40 AM EDT Office Visit [facility] Internal Medicine 40 [place] [address] Antione Segura PA-C 40 [place] [address] 06/25/2025 9:30 AM EST Telemedicine [facility] Neurology 22 [place] [address] Jn Cardoza MD 22 [facility], 2nd [place] [address] [email or web address] documented as of this encounter Visit Diagnoses Not on filedocumented in this encounter Additional Health Concerns Assessment Noted Time PHQ-9 Depression Total Score: 21 023 12:35 PM EDT PHQ-2 Depression Total Score: 2 02/19/20 23 6:55 PM EDT documented as of this encounter Care Teams Recruiting Team Lead Relationship Specialty Start Date End Date Jennifer Duke, MEAL COOKER 40 [place] [address] PCP - General Family Medicine 01/31/20 06/22/23 Sirisha Huertas FNP [address] [place] [address] [email or web address] PCP - General Nurse Practitioner 06/23/23 08/03/24 Liyah Patterson MD [address] [place] [address] [email or web address] PCP - General Family Medicine 08/04/24 10/11/24 Antione Segura PA-C [address] [place] [address] [email or web address] PCP - General Physician Field Map Editor 10/12/24 Lang Germain MD [address] [place] [address] [email or web address] Insurance Assigned Provider 09/18/23 02/19/24 Jn Cardoza MD [address] [place] [address], 2nd [place] [address] [email or web address] Neurology 02/03/24 Denys Henriquez MD [address] [place] [address] [place] [address] Pulmonary Disease 02/03/24 Liyah Patterson MD [address] [place] [address] [email or web address] Insurance Assigned Provider 02/19/24 01/20/25 Rhett Cortez MD [address] [place] [phone] ([email or web address]) [email or web address] Insurance Assigned Provider 01/20/25 documented as of this encounter Additional Source Comments The information contained in this document represents components of the legal health record. It is not the complete legal health record.[facility]
--- OUTSIDE RECORDS SUMMARY | 2025-02-21 11:15 | XMS_ITS | Encounter Summary ---
Author Organization [facility] Address [address] [place] [address] Phone Care Team Providers Care Silk Winding Machine Operator Name Role Phone Jn Cardoza MD Unavailable Denys Henriquez MD Unavailable Antione Segura PA-C Primary Care Provider [phone] Rhett Cortez MD Unavailable Reason for Referral * Consultation (Within 3 days (urgent)) - New Request Specialty Diagnoses / Procedures Referred By Dary smith Referred To Contact Diagnoses Chronic obstructive pulmonary disease Phyllis [place] CNP [address] [place] [phone] Phone: tel: fax: [email or web address] Referral ID Status Reason Start Date Expiration Date V isits Requested Visits Authorized [id number] New Request 02/16/2025 02/16/2026 1 1 Reason for Visit * Reason Onset Date Comments Referral 02/16/2025 [facility] Encounter Details Date Type Department Care Team (Late st Contact Info) Description 02/16/2025 Telephone [facility] Internal Medicine 40 [place] [address] Antione Segura PA-C 40 [place] [address] [email or web address] Referral ([facility]) Social History Tobacco Use Types Packs/Day [...] high school, GED, job training, learning the Georgian language, technical skills, or developing parenting skills)? [...] as of this encounter Progress Notes * Astrid Velazquez - 02/21/2025 8:34 AM EDT Nicole called from Pulmonary and pt has appointment today and they are still waiting on authorization, please fax [phone] * Cecile Mackey - 02/16/2025 2:22 PM EDT Start date was 02/07/2025 needs insurance auth * Phyllis [place] CNP - 02/16/2025 12:51 PM EDT VCS Reviewed: Referral signed. Thank you Phyllis [place] CNP 02/16/25 12:51 PM * Radha Haque RN - 02/16/2025 12:46 PM EDT Spoke to Zulma. She is primarily seeing Dr. Henriquez at [facility] but was referred to [facility] for a 2nd opinion. Referral to [facility] pended as requested. * Radha Haque RN - 02/16/2025 12:39 PM EDT Images from the original note were not included. * Mita Diehl - 02/16/2025 12:32 PM EDT Nicole from [facility] called in to check status of an [facility] See [facility]. Multiple pulmonology referrals on file for pt. This data analyst report writer is unsure if this referral is needed or if it is replacing another pulmonology referral that has already been ordered. Please contact and advise. Central Support Silk Screen Etcher (Please do not reply to this user; this inbox is not monitored.) Thank you. documented in this encounter Plan of Treatment Upcoming Encounters Date Type Department Care Team (Late st Contact Info) Description 02/23/2025 2:00 AM EDT Home Care [facility] 30 [place] [address] Krysta Charles [address] [place] [phone] 03/28/2025 9:40 AM EDT Office Visit [facility] Internal Medicine [address] [place] [address] Antione Segura PA-C [address] [place] [address] [email or web address] 06/25/2025 9:30 AM EST Telemedicine [facility] [place] [address] Jn Carodza MD [address] [address] [email or web address] Scheduled Referrals Name Type Priority Associated Diagnoses [...] documented as of this encounter Care Teams Silk Winding Machine Operator Relationship Specialty Start Date End Date Antione Segura PA-C [address] [place] [address] PCP - General Physician Physical Therapy Attendant 10/12/24 Jn Cardoza MD [address] [place] [address] Neurology 02/03/24 Denys Henriquez MD [address] [place] [address] [place] [address] Pulmonary Disease 02/03/24 Rhett Cortez MD [address] [place] [address] [email or web address] Insurance Assigned Provider 01/20/25 documented as of this encounter Additional Source Comments The information contained in this document represents components of the legal health record. It is not the complete legal health record.[facility]
--- OUTSIDE RECORDS SUMMARY | 2025-02-21 11:15 | XMS_ITS | Encounter Summary ---
Author Organization [facility] Address [address] [place] [address] Care Team Providers Care Operations Support Representative Name Role Phone Antione Segura Primary Care Provider [phone] Reason for Visit * Reason Onset Date Comments PAC Order Request 01/29/2025 Dr. Bautista 01/29/2025 Encounter Details Date Type Department Care Team (Late st Contact Info) Description 01/29/2025 Telephone [facility] [address] [place] [phone] Urologist: Federico Hill Telephone Intake, Staff PAC Order [...] 2:23 PM EDT Spoke to Pulmonary at [facility] regarding PFTs. They stated they can accept order fromDr. Bautista. Order faxed to [phone]. * Telephone Encounter - Amalia Paredes RN - 01/29/2025 1:38 PM EDT Spoke to patient. She stated not transferring care but would like to have the PFTs done closer to her, as it is a two [address] to [facility]. She is on portable oxygen and concerned that she would not have enough for such a long day of travel and testing. * Telephone Encounter - Diana Naeem - 01/29/2025 12:10 PM EDT Pt of Dr. Bautista would like PFT order faxed over to [facility] closer to her home, please advise pt # [phone] documented in this encounter Plan of Treatment Upcoming Encounters Date Type Department Care Team (Late st Contact Info) Description 05/30/2025 2:00 PM EST Follow-Up [facility] [address] [place] [address] Urologist: Remy Santos MD [address] [place] [address] documented as of this encounter Visit Diagnoses Not on filedocumented in this encounter Care Teams Operations Support Representative Relationship Specialty Start Date End Date Antione Segura PA [address] [place] [address] PCP - General Emergency Medicine 01/10/25 documented as of this encounter
--- OUTSIDE RECORDS SUMMARY | 2025-02-21 11:15 | XMS_ITS | Encounter Summary ---
Author Organization [facility] Address [address] [place] [address] Phone Care Team Providers Care Platform Consultant Name Role Phone Jn Cardoza MD Unavailable Denys Henriquez MD Unavailable Antione Segura PA-C Primary Care Provider [phone] Rhett Cortez MD Unavailable Encounter Details Date Type Department Care Team (Late st Contact Info) Description 02/14/2025 Orders Only [facility] Internal Medicine [address] [place] [address] Provider, MD Omar [address] [place] [address] Social History Tobacco Use Types Packs/Day [...] high school, GED, job training, learning the Ivorian language, technical skills, or developing parenting skills)? [...] 2:00 AM EDT Home Care Visit [facility] [address] [place] [phone] CharlesKrysta [address] [place] [address] 03/28/2025 9:40 AM EDT Office Visit [facility] Internal Medicine [address] [place] [address] Antione Segura PA-C 40 [place] [address] [email or web address] 06/25/2025 9:30 AM EST Telemedicine [facility] Neurology [address] [place] [address] Jn Cardoza MD 22 [facility], 2nd [place] [address] documented as of this encounter Procedures Procedure Name Priority Date/Time Associated Diagnosis Comments OUTSIDE US BREAST REPORT ONLY Routine 02/14/2025 4:39 PM EDT HM MAMMOGRAPHY Routine 02/14/2025 2:39 PM EDT documented in this encounter Results * Outside US Breast Report Only (02/14/2025 4:39 PM EDT) Historical Provider MD DAWKINS US BREAST Final Res ult * HM MAMMOGRAPHY FOR RESULT ENTRY ONLY (02/14/2025 2:39 PM EDT) Historical Provider HEALTH MAINTENANCE Final Result documented in this encounter Visit Diagnoses Not on filedocumented in this encounter Additional Health Concerns Assessment Noted Time PHQ-9 Depression Total Score: 15 025 9:44 AM EDT PHQ-2 Depression Total Score: 4 02/01/20 25 9:44 AM EDT documented as of this encounter Care Teams Platform Consultant Relationship Specialty Start Date End Date Antione Segura PA-C [address] [place] [address] PCP - General Physician Milk Tanker Driver 10/12/24 Jn Cardoza MD 22 [facility], [address] [place] [address] Neurology 02/03/24 Denys Henriquez MD [address] [place] [address] [place] [address] Pulmonary Disease 02/03/24 Rhett Cortez MD [address] [place] [address] [email or web address] Insurance Assigned Provider 01/20/25 documented as of this encounter Additional Source Comments The information contained in this document represents components of the legal health record. It is not the complete legal health record.[facility]
--- OUTSIDE RECORDS SUMMARY | 2025-02-21 11:15 | XMS_ITS | Encounter Summary ---
Author Organization [facility] Address [address] [address] Phone Care Team Providers Care Short Goods Drier Name Role Phone Jn Cardoza MD Unavailable Denys Henriquez MD Unavailable Antione Segura PA-C Primary Care Provider Rhett Cortez MD Unavailable Reason for Visit * Auth/Cert (Routine) Specialty Diagnoses / Procedures Referred By Dary smith Referred To Contact Referral ID Status Reason Start Date Expiration Date Visits Re quested Visits Authorized [id number] 1 1 Encounter Details Date Type Department Care Team (Late st Contact Info) Description 02/15/2025 Home Care Visit [facility] [address] [place] [address] Laquita Mchugh, PT [address] [place] [address] [email or web address] TELEPHONE ENCOUNTER Social History Tobacco Use Types [...] high school, GED, job training, learning the Armenian language, technical skills, or developing parenting skills)? [...] 02/23/2025 2:00 AM EDT Home Care Visit [facility] [address] [place] [phone] Krysta Charles [address] [place] [address] [email or web address] 03/28/2025 9:40 AM EDT Office Visit [facility] Internal Medicine [address] [place] [address] Antione Segura PA-C [address] [place] [address] [email or web address] 06/25/2025 9:30 AM EST Telemedicine [facility] Neurology [address] [place] [address] Jn Cardoza MD 22 [facility], [address] [place] [phone] documented as of this encounter Visit Diagnoses Not on filedocumented in this encounter Additional Health Concerns Assessment Noted Time PHQ-9 Depression Total Score: 15 025 9:44 AM EDT PHQ-2 Depression Total Score: 4 02/01/20 25 9:44 AM EDT documented as of this encounter Care Teams Short Goods Drier Relationship Specialty Start Date End Date Antione Segura PA-C [address] [place] [address] [email or web address] PCP - General Physician Ball Thread Machine Tender 10/12/24 Jn Cardoza MD [address] [place] [address], 2nd [place] [address] [email or web address] Neurology 02/03/24 Denys Henriquez MD [address] [place] [address] [place] [address] Pulmonary Disease 02/03/24 Rhett Cortez MD [address] [place] [address] [email or web address] Insurance Assigned Provider 01/20/25 documented as of this encounter Additional Source Comments The information contained in this document represents components of the legal health record. It is not the complete legal health record.[facility]
--- OUTSIDE RECORDS SUMMARY | 2025-02-21 11:16 | XMS_ITS | Encounter Summary ---
Author Organization [facility] Address [address] [place] [address] Phone Care Team Providers Care Auto Bench Mechanic Name Role Phone Charbel Webber MD Unavailable Alverto Gandara MD Unavailable Maikel Rawls MD Unavailable [phone] Lang Germain MD Unavailable Jennifer Duke LAWYER PROBATE Primary Care Provider Lang Germain MD Primary Care Provider Jennifer Duke LAWYER PROBATE Unavailable [phone] Jennifer Duke LAWYER PROBATE Primary Care Provider Lang Germain MD Primary Care Provider Jennifer Duke LAWYER PROBATE Primary Care Provider Sirisha Huertas SENIOR EXECUTIVE ASSISTANT Primary Care Provider [phone] Jn Cardoza MD Unavailable Denys Henriquez MD Unavailable Liyah Patterson MD Unavailable Liyah Patterson MD Primary Care Provider [phone] Antione Segura PA-C Primary Care Provider [phone] Rhett Cortez MD Unavailable Encounter Details Date Type Department Care Team (Late Contact Info) Description 03/20/2019 Telephone [facility] Internal Medicine [address] [place] [address] Jennifer Duke, LAWYER PROBATE 26 [facility] 6 [place] [address] Social History Tobacco Use Types Packs/Day Years [...] 02/23/2025 2:00 AM EDT Home Care Visit [facility] [address] [place] [address] Krysta Charles [address] [place] [address] 03/28/2025 9:40 AM EDT Office Visit [facility] Internal Medicine 40 [place] [address] nAtione Segura PA-C 40 [place] [address] 06/25/2025 9:30 AM EST Telemedicine [facility] Neurology [address] [place] [address] Jn Cardoza MD 22 [facility], 2nd [place] [address] [email or web address] documented as of this encounter Visit Diagnoses Not on filedocumented in this encounter Additional Health Concerns Assessment Noted Time PHQ-2 Depression Total Score: 0 11/18/19 19 2:05 PM EDT documented as of this encounter Care Teams Auto Bench Mechanic Relationship Specialty Start Date End Date Jennifer Duke, LAWYER PROBATE 40 [place] [address] [email or web address] PCP - General Family Medicine 12/14/18 11/12/19 Lang Germain MD 40 [place] [address] [email or web address] PCP - General Internal Medicine 11/13/19 12/03/19 Jennifer Duke NP 40 [place] [address] [email or web address] PCP - General Family Medicine 12/04/19 01/23/20 Lang Germain MD 40 [place] [address] [email or web address] PCP - General Internal Medicine 01/24/20 01/30/20 Jennifer Duke NP 40 [place] [address] [email or web address] PCP - General Family Medicine 01/31/20 06/22/23 Sirisha Huertas FNP 15 [facility] [address] [place] [address] [email or web address] PCP - General Nurse Practitioner 06/23/23 08/03/24 Liyah Patterson MD 15 [facility] 201 [place] [address] [email or web address] PCP - General Family Medicine 08/04/24 10/11/24 Antione Segura PA-C 40 [place] [address] [email or web address] PCP - General Physician Data Migration Lead 10/12/24 Charbel Webber MD 22 [facility], [address] [place] [address] [email or web address] Historical LMR Provider 04/01/17 0 Alverto Gandara MD 22 [facility], 2nd [place] [address] [email or web address] Historical LMR Provider 04/01/17 12/03/19 Maikel Rawls MD [address] [place] [address] [email or web address] Historical LMR Provider 04/01/17 12/03/19 Lang Germain MD [address] [place] [address] [email or web address] Insurance Assigned Provider 09/18/23 02/19/24 Jennifer Duke, LAWYER PROBATE [address] [place] [address] Nurse Practitioner Family Medicine 11/13/19 01/30/20 Jn Cardoza MD 22 [facility], 2nd [place] [address] Neurology 02/03/24 Denys Henriquez MD [address] [place] [address] [place] [address] Pulmonary Disease 02/03/24 Liyah Patterson MD 15 [facility] [address] [place] [address] Insurance Assigned Provider 02/19/24 01/20/25 Rhett Cortez MD 40 [place] [address] Insurance Assigned Provider 01/20/25 documented as of this encounter Additional Source Comments The information contained in this document represents components of the legal health record. It is not the complete legal health record.[facility]
--- OUTSIDE RECORDS SUMMARY | 2025-02-21 11:16 | XMS_ITS | Encounter Summary ---
Author Organization [facility] Address [address] [place] [address] Phone Care Team Providers Care Overedge Machine Operator Name Role Phone Jn Cardoza MD Unavailable Denys Henriquez MD Unavailable [phone] Antione Segura PA-C Primary Care Provider Rhett Cortez MD Unavailable Reason for Visit * Reason Onset Date Comments PFT 01/24/2025 Encounter Details Date Type Department Care Team (Late st Contact Info) Description 01/24/2025 Telephone [facility] Internal Medicine [address] [place], [place] [phone] Antione Segura PA-C 40 [place] [address] [email or web address] PFT Social History Tobacco [...] high school, GED, job training, learning the Nauruan language, technical skills, or developing parenting skills)? [...] of Facility fax is being sent to: [facility] pulmonary Document(s) requested:all PFT testing with [employer] and [facility] Call Center CSS Agent (Please do not reply to this user, as this inbox is not monitored. Thank you.) Thank you. documented in this encounter Plan of Treatment Upcoming Encounters Date Type Department Care Team (Late st Contact Info) Description 02/23/2025 2:00 AM EDT Home Care Visit [facility] [address] [place] [address] Krysta Charles [address] [place] [address] 03/28/2025 9:40 AM EDT Office Visit [facility] Internal Medicine 40 [place] [address] Antione Segura PA-C 40 [place] [address] 06/25/2025 9:30 AM EST Telemedicine [facility] Neurology 22 [place] [address] Jn Cardoza MD [address] [address] [email or web address] documented as of this encounter Visit Diagnoses Not on filedocumented in this encounter Additional Health Concerns Assessment Noted Time PHQ-9 Depression Total Score: 20 025 9:08 PM EDT PHQ-2 Depression Total Score: 6 12/28/19 25 9:08 PM EDT documented as of this encounter Care Teams Overedge Machine Operator Relationship Specialty Start Date End Date Antione Segura PA-C 40 [place] [address] [email or web address] PCP - General Physician Executive Chef Assistant 10/12/24 Jn Cardoza MD [address] [place] [address] [email or web address] Neurology 02/03/24 Denys Henriquez MD [address] [place] [address] [place] [address] Pulmonary Disease 02/03/24 Rhett Cortez MD 40 [place] [address] [email or web address] Insurance Assigned Provider 01/20/25 documented as of this encounter Additional Source Comments The information contained in this document represents components of the legal health record. It is not the complete legal health record.[facility]
--- OUTSIDE RECORDS SUMMARY | 2025-02-21 11:16 | XMS_ITS | Encounter Summary ---
Author Organization [facility] Address [address] [employer] [facility] [address] [place] [address] Phone Care Team Providers Care Applicator Sprayer Name Role Phone Jn Cardoza MD Unavailable Denys Henriquez MD Unavailable Antione Segura PA-C Primary Care Provider Rhett Cortez MD Unavailable Encounter Details Date Type Department Care Team (Late st Contact Info) Description 02/21/2025 Episode Documentatio n Update [facility] [address] [place] [address] Margy Rubalcava [address] [place] [address] [email or web address] Social History Tobacco Use Types Packs/Day Years [...] high school, GED, job training, learning the Puerto Rican language, technical skills, or developing parenting skills)? [...] Visit [facility] [address] [place] [address] Krysta Charles [address] [place] [address] [email or web address] 03/28/2025 9:40 AM EDT Office Visit [facility] Internal Medicine 40 [place] [address] Antione Segura PA-C 40 [place] [address] 06/25/2025 9:30 AM EST Telemedicine [facility] Neurology 22 [place] [address] Jn Cardoza MD 22 [facility], 2nd [place] [address] [email or web address] documented as of this encounter Visit Diagnoses Not on filedocumented in this encounter Additional Health Concerns Assessment Noted Time PHQ-9 Depression Total Score: 15 025 9:44 AM EDT PHQ-2 Depression Total Score: 4 02/01/20 25 9:44 AM EDT documented as of this encounter Care Teams Applicator Sprayer Relationship Specialty Start Date End Date Antione Segura PA-C 40 [place] [address] PCP - General Physician Investment Counselor 10/12/24 Jn Cardoza MD 22 [facility], 2nd [place] [address] [email or web address] Neurology 02/03/24 Denys Henriquez MD [address] [place] [address] [place] [address] Pulmonary Disease 02/03/24 Rhett Cortez MD [address] [place] [address] [email or web address] Insurance Assigned Provider 01/20/25 documented as of this encounter Additional Source Comments The information contained in this document represents components of the legal health record. It is not the complete legal health record.[facility]
--- OUTSIDE RECORDS SUMMARY | 2025-02-21 11:16 | XMS_ITS | Encounter Summary ---
Author Organization [facility] Address [address] [place] [address] Phone Care Team Providers Care Wired Sweatband Cutter Name Role Phone Lang Germain MD Unavailable [phone] Jennifer Duke REDYE HAND Primary Care Provider Sirisha Huertas INSTRUMENT INSTALLER Primary Care Provider Jn Cardoza MD Unavailable Denys Henriquez MD Unavailable Liyah Patterson MD Unavailable Liyah Patterson MD Primary Care Provider [phone] Antione Segura PA-C Primary Care Provider Rhett Cortez MD Unavailable Encounter Details Date Type Department Care Team (Late st Contact Info) Description 09/01/2021 Procedure Pass [address] [address] Social History Tobacco Use Types Packs/Day Years [...] Visit [facility] 30 [place] [address] Krysta Charles [address] [place] [address] 03/28/2025 9:40 AM EDT Office Visit [facility] Internal Medicine 40 [place] [address] Antione Segura PA-C 40 [place] [address] [email or web address] 06/25/2025 9:30 AM EST Telemedicine [facility] Neurology 22 [place] [address] Jn Cardoza MD 22 [facility], 2nd [place] [address] documented as of this encounter Visit Diagnoses Not on filedocumented in this encounter Additional Health Concerns Assessment Noted Time PHQ-2 Depression Total Score: 0 05/25/20 19 9:02 AM EST documented as of this encounter Care Teams Wired Sweatband Cutter Relationship Specialty Start Date End Date Jennifer Duke REDYE HAND 40 [place] [address] PCP - General Family Medicine 01/31/20 06/22/23 Sirisha Huertas FNP [address] [place] [address] [email or web address] PCP - General Nurse Practitioner 06/23/23 08/03/24 Liyah Patterson MD [address] [place] [address] [email or web address] PCP - General Family Medicine 08/04/24 10/11/24 Antione Segura PA-C [address] [place] [address] [email or web address] PCP - General Physician Patient Admitting Clerk 10/12/24 Lang Germain MD [address] [place] [address] [email or web address] Insurance Assigned Provider 09/18/23 02/19/24 Jn Cardoza MD [address] [place] [address], 2nd [place] [address] [email or web address] Neurology 02/03/24 Denys Henriquez MD [address] [place] [address] [place] [address] Pulmonary Disease 02/03/24 Liyah Patterson MD [address] [place] [address] [email or web address] Insurance Assigned Provider 02/19/24 01/20/25 Rhett Cortez MD [address] [place] [address] [email or web address] Insurance Assigned Provider 01/20/25 documented as of this encounter Additional Source Comments The information contained in this document represents components of the legal health record. It is not the complete legal health record.[facility]
--- OUTSIDE RECORDS SUMMARY | 2025-02-21 11:16 | XMS_ITS | Encounter Summary ---
Author Organization [facility] Address [address] [place] [address] Phone Care Team Providers Care School Bus Driver/Mechanic Name Role Phone Lang Germain MD Unavailable Jennifer Duke PUMPING STATION SUPERVISOR Primary Care Provider Sirisha Huertas THREAD PULLER Primary Care Provider [phone] Jn Cardoza MD Unavailable Denys Henriquez MD Unavailable Liyah Patterson MD Unavailable Liyah Patterson MD Primary Care Provider [phone] Antione Segura PA-C Primary Care Provider Rhett Cortez MD Unavailable Encounter Details Date Type Department Care Team (Late st Contact Info) Description 05/06/2021 Procedure Pass [facility], [address] [address] Social History Tobacco Use Types Packs/Day Years [...] Visit [facility] [address] [place] [address] Krysta Charles [address] [place] [address] 03/28/2025 9:40 AM EDT Office Visit [facility] Internal Medicine 40 [place] [address] Antione Segura PA-C 40 [place] [address] 06/25/2025 9:30 AM EST Telemedicine [facility] Neurology [address] [place] [address] Jn Cardoza MD 22 [facility], 2nd [place] [address] documented as of this encounter Visit Diagnoses Not on filedocumented in this encounter Additional Health Concerns Assessment Noted Time PHQ-2 Depression Total Score: 0 05/25/20 19 9:02 AM EST documented as of this encounter Care Teams School Bus Driver/Mechanic Relationship Specialty Start Date End Date Jennifer Duke PUMPING STATION SUPERVISOR 40 [place] [address] PCP - General Family Medicine 01/31/20 06/22/23 Sirisha Huertas FNP [address] [place] [address] [email or web address] PCP - General Nurse Practitioner 06/23/23 08/03/24 Liyah Patterson MD [address] [place] [address] [email or web address] PCP - General Family Medicine 08/04/24 10/11/24 Antione Segura PA-C [address] [place] [address] [email or web address] PCP - General Physician Justice Court Deputy Clerk 10/12/24 Lang Germain MD [address] [place] [address] [email or web address] Insurance Assigned Provider 09/18/23 02/19/24 Jn Cardoza MD [address] [place] [address], 2nd [place] [address] [email or web address] Neurology 02/03/24 Denys Henriquez MD [address] [place] [address] [place] [address] Pulmonary Disease 02/03/24 Liyah Patterson MD [address] [place] [address] [email or web address] Insurance Assigned Provider 02/19/24 01/20/25 Rhett Cortez MD [address] [place] [address] [email or web address] Insurance Assigned Provider 01/20/25 documented as of this encounter Additional Source Comments The information contained in this document represents components of the legal health record. It is not the complete legal health record.[facility]
--- OUTSIDE RECORDS SUMMARY | 2025-02-21 11:16 | XMS_ITS | Encounter Summary ---
Author Organization [facility] Address [address] [place] [address] Phone Care Team Providers Care Audit Consultant Name Role Phone Charbel Webber MD Unavailable Alverto Gandara MD Unavailable Maikel Rawls MD Unavailable [phone] Jennifer Duke STATION INSTALLATION SUPERVISOR Primary Care Provider Lang Germain MD Primary Care Provider Jennifer Duke STATION INSTALLATION SUPERVISOR Primary Care Provider Lang Germain MD Unavailable Lang Germain MD Primary Care Provider Jennifer Duke STATION INSTALLATION SUPERVISOR Primary Care Provider Lang Germain MD Primary Care Provider Jennifer Duek STATION INSTALLATION SUPERVISOR Primary Care Provider Lang Germain MD Primary Care Provider Jennifer Duke STATION INSTALLATION SUPERVISOR Primary Care Provider Lang Germain MD Primary Care Provider [place], Jennifer L STATION INSTALLATION SUPERVISOR Unavailable [phone] Jennifer Duke STATION INSTALLATION SUPERVISOR Primary Care Provider [phone] Lang Germain MD Primary Care Provider [phone] Jennifer Duke STATION INSTALLATION SUPERVISOR Primary Care Provider [phone] Sirisha Huertas HAND SEWER SHOES Primary Care Provider [phone] Jn Cardoza MD Unavailable eDnys Henriquez MD Unavailable Liyah Patterson MD Unavailable Liyah Patterson MD Primary Care Provider [phone] Antione Segura PA-C Primary Care Provider [phone] Rhett Cortez MD Unavailable Encounter Details Date Type Department Care Team (Late st Contact Info) Description 09/13/2018 Procedure Pass [facility], [address] [address] Social History Tobacco Use Types Packs/Day Years [...] 02/23/2025 2:00 AM EDT Home Care Visit [facility] [address] [place] [phone] Krysta Charles [address] [place] [address] 03/28/2025 9:40 AM EDT Office Visit [facility] [place] Internal Medicine [address] [place] [address] Antione Segura PA-C 40 [place] [address] [email or web address] 06/25/2025 9:30 AM EST Telemedicine [facility] Neurology 22 [place] [address] Jn Cardoza MD 22 [facility], 2nd [place] [address] documented as of this encounter Visit Diagnoses Not on filedocumented in this encounter Additional Health Concerns Assessment Noted Time PHQ-2 Depression Total Score: 0 08/20/19 9:13 AM EST documented as of this encounter Care Teams Audit Consultant Relationship Specialty Start Date End Date Jennifer Duke NP [address] [place] [address] PCP - General Family Medicine 09/08/18 09/14/18 Lang Germain MD [address] [place] [address] PCP - General Internal Medicine 09/15/18 10/02/18 Jennifer Duke NP [address] [place] [address] PCP - General Family Medicine 10/03/18 10/05/18 Lang Germain MD [address] [place] [address] PCP - General Internal Medicine 10/06/18 10/12/18 Jennifer Duke STATION INSTALLATION SUPERVISOR [address] [address] [email or web address] PCP - General Family Medicine 10/13/18 11/09/18 Lang Germain MD [address] [place] [address] [email or web address] PCP - General Internal Medicine 11/10/18 11/22/18 Jennifer Duke NP [address] [place] [address] [email or web address] PCP - General Family Medicine 11/23/18 11/30/18 Lang Germain MD [address] [place] [address] [email or web address] PCP - General Internal Medicine 12/01/18 12/13/18 Jennifer Duke NP [address] [place] [address] [email or web address] PCP - General Family Medicine 12/14/18 11/12/19 Lang Germain MD [address] [place] [address] PCP - General Internal Medicine 11/13/19 12/03/19 Jennifer Duke NP [address] [place] [address] [email or web address] PCP - General Family Medicine 12/04/19 01/23/20 Lang Germain MD [address] [place] [address] [email or web address] PCP - General Internal Medicine 01/24/20 01/30/20 Jennifer Duke, STATION INSTALLATION SUPERVISOR [address] [place] [address] [email or web address] PCP - General Family Medicine 01/31/20 06/22/23 Sirisha Huertas FNP [address] [place] [address] [email or web address] PCP - General Nurse Practitioner 06/23/23 08/03/24 Liyah Patterson MD [address] [place] [address] [email or web address] PCP - General Family Medicine 08/04/24 10/11/24 Antione Segura PA-C [address] [place] [address] [email or web address] PCP - General Physician Adzing And Boring Machine Helper 10/12/24 Charbel Webber MD [address] [place] [address], [address] [place] [address] [email or web address] Historical LMR Provider 04/01/17 0 Alverto Gandara MD [address] [place] [address], 2[address] [place] [address] Historical LMR Provider 04/01/17 12/03/19 Maikel Rawls MD [address] [address] [email or web address] Historical LMR Provider 04/01/17 12/03/19 Lang Germain MD [address] [place] [address] Insurance Assigned Provider 09/18/23 02/19/24 Jennifer Duke NP [address] [address] Nurse Practitioner Family Medicine 11/13/19 01/30/20 Jn Cardoza MD 22 [facility], 2nd [place] [address] Neurology 02/03/24 Denys Henriquez MD [address] [place] [address] [place] [address] Pulmonary Disease 02/03/24 Liyah Patterson MD 15 [facility] [address] [place] [address] Insurance Assigned Provider 02/19/24 01/20/25 Rhett Cortez MD [address] [place] [address] Insurance Assigned Provider 01/20/25 documented as of this encounter Additional Source Comments The information contained in this document represents components of the legal health record. It is not the complete legal health record.[facility]
--- OUTSIDE RECORDS SUMMARY | 2025-02-21 11:16 | XMS_ITS | Encounter Summary ---
Author Organization [facility] Address [address] [place] [address] Phone Care Team Providers Care Lumber Salvager Name Role Phone Jn Cardoza MD Unavailable Denys Henriquez MD Unavailable [phone] Antione Segura PA-C Primary Care Provider [phone] Rhett Cortez MD Unavailable Encounter Details Date Type Department Care Team (Late st Contact Info) Description 02/20/2025 Orders Only [facility] Internal Medicine 40 [place] [address] Provider, MD Omar [address] [place] [address] Social History Tobacco Use Types Packs/Day [...] high school, GED, job training, learning the Congolese language, technical skills, or developing parenting skills)? [...] 2:00 AM EDT Home Care Visit [facility] [address] [place] [phone] Charles Krysta [address] [place] [address] 03/28/2025 9:40 AM EDT Office Visit [facility] Internal Medicine 40 [place] [address] Antione Segura PA-C 40 [place] [address] [email or web address] 06/25/2025 9:30 AM EST Telemedicine [facility] Neurology 22 [place] [address] Jn Cardoza MD 22 [facility], 2nd [place] [address] [email or web address] documented as of this encounter Procedures Procedure Name Priority Date/Time Associated Diagnosis Comments OUTSIDE IMAGING Routine 02/17/2025 11:14 AM EDT documented in this encounter Results * Outside Imaging Report Only (02/17/2025 11:14 AM EDT) us Historical Provider MD DAWKINS XR CHEST Final Res ult documented in this encounter Visit Diagnoses Not on filedocumented in this encounter Additional Health Concerns Assessment Noted Time PHQ-9 Depression Total Score: 15 025 9:44 AM EDT PHQ-2 Depression Total Score: 4 02/01/20 25 9:44 AM EDT documented as of this encounter Care Teams Lumber Salvager Relationship Specialty Start Date End Date Antione eSgura PA-C [address] [place] [address] [email or web address] PCP - General Physician Mangle Press Catcher 10/12/24 Jn Cardoza MD 22 [facility], 2nd [place] [address] [email or web address] Neurology 02/03/24 Denys Henriquez MD [address] [place] [address] [place] [address] Pulmonary Disease 02/03/24 Rhett Cortez MD [address] [place] [address] [email or web address] Insurance Assigned Provider 01/20/25 documented as of this encounter Additional Source Comments The information contained in this document represents components of the legal health record. It is not the complete legal health record.[facility]
--- OUTSIDE RECORDS SUMMARY | 2025-02-21 11:16 | XMS_ITS | Clinical Summary ---
Author Organization [facility] Address [address] [id number] Care Team Providers Care Santa'S Helper Name Role Phone Antione Segura Primary Care Provider [phone] Allergies Active Allergy Reactions Criticality Noted Date [...] Type Department Care Team Description 01/29/2025 Telephone [facility] [address] [place] [address] Product Test Engineer: Federico Hill Telephone Intake, Staff PAC Order Request; Dr. 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 Procedure Name Priority Date/Time Associated Diagnosis Comments LAB - SCANNED 01/10/2025 AMB EXTERNAL XR CHEST, OUTSI DE RESULT 01/04/2025 AMB EXTERNAL ANGIOGRAM, OUTS YUN RESULT 12/21/[address] CHEST, OUTSI DE RESULT 11/30/2024 from Last 3 Months Results * Due to [place] [employer] law, this organization might not be sharing negative HIV tests. * LAB - SCANNED (01/10/2025) us Onbase Scan [facility] HISTORICAL RESULTS Final Result * XR Chest, Outside Result (01/04/2025) Anatomical Region Laterality Modality Other 01/04/2025 us [...] Result from Last 3 Months Insurance [facility] HMO/POS Care Teams Santa'S Helper Relationship Specialty Start Date End Date Antione Segura PA [address] [place] [address] PCP - General Emergency Medicine 01/10/25
--- OUTSIDE RECORDS SUMMARY | 2025-02-21 11:16 | XMS_ITS | Encounter Summary ---
Author Organization [facility] Address [address] [address] Phone Care Team Providers Care Fowl Blood Tester Name Role Phone Jn Cardoza MD Unavailable Denys Henriquez MD Unavailable Antione Segura PA-C Primary Care Provider Rhett Cortez MD Unavailable Reason for Visit * Auth/Cert (Routine) Specialty Diagnoses / Procedures Referred By Dary smith Referred To Contact Referral ID Status Reason Start Date Expiration Date Visits Re quested Visits Authorized [id number] 1 1 Encounter Details Date Type Department Care Team (Late st Contact Info) Description 02/16/2025 Home Care Visit [facility] [address] [place] [address] Laquita Mchugh, PT [address] [place] [address] [email or web address] TELEPHONE ENCOUNTER Social History Tobacco Use Types [...] 02/23/2025 2:00 AM EDT Home Care Visit [facility] [address] [place] [phone] Krysta Charles [address] [place] [address] [email or web address] 03/28/2025 9:40 AM EDT Office Visit [facility] Internal Medicine 40 [place] [address] Antione Segura PA-C 40 [place] [address] [email or web address] 06/25/2025 9:30 AM EST Telemedicine [facility] Neurology [address] [place] [address] Jn Cardoza MD 22 [facility], [address] [place] [address] documented as of this encounter Visit Diagnoses Not on filedocumented in this encounter Additional Health Concerns Assessment Noted Time PHQ-9 Depression Total Score: 15 025 9:44 AM EDT PHQ-2 Depression Total Score: 4 02/01/20 25 9:44 AM EDT documented as of this encounter Care Teams Fowl Blood Tester Relationship Specialty Start Date End Date Antione Segura PA-C [address] [place] [address] [email or web address] PCP - General Physician Senior Mechanical Estimator 10/12/24 Jn Cardoza MD [address] [place] [address], 2nd [place] [address] [email or web address] Neurology 02/03/24 Denys Henriquez MD [address] [place] [address] [place] [address] Pulmonary Disease 02/03/24 Rhett Cortez MD [address] [place] [address] [email or web address] Insurance Assigned Provider 01/20/25 documented as of this encounter Additional Source Comments The information contained in this document represents components of the legal health record. It is not the complete legal health record.[facility]
--- OUTSIDE RECORDS SUMMARY | 2025-02-21 11:16 | XMS_ITS | Encounter Summary ---
Author Organization [facility] Address [address] [place] [address] Phone Care Team Providers Care Advanced Practice Professional Name Role Phone Charbel Webber MD Unavailable Alverto Gandara MD Unavailable Maikel Rawls MD Unavailable [phone] Lang Germain MD Primary Care Provider Jennifer Duke FORESTRY FOREMAN Primary Care Provider Lang Germain MD Primary Care Provider Jennifer Duke FORESTRY FOREMAN Primary Care Provider Lang Germain MD Primary Care Provider Jennifer Duke FORESTRY FOREMAN Primary Care Provider Lang Germain MD Unavailable Lang Germain MD Primary Care Provider Jennifer Duke FORESTRY FOREMAN Primary Care Provider Lang Germain MD Primary Care Provider Jennifer Duke FORESTRY FOREMAN Primary Care Provider Lang Germain MD Primary Care Provider [phone] Jennifer Duke FORESTRY FOREMAN Primary Care Provider [phone] Lang Germain MD Primary Care Provider [phone] Jennifer Duke FORESTRY FOREMAN Unavailable [phone] Jennifer Duke FORESTRY FOREMAN Primary Care Provider [phone] Lang Germain MD Primary Care Provider [phone] Jennifer Duke FORESTRY FOREMAN Primary Care Provider [phone] Aleksandar Sirishafrancisca Kendall COTTON MACHINE OPERATOR Primary Care Provider [phone] Jn Cardoza MD Unavailable Denys Henriquez MD Unavailable [phone] Liyah Patterson MD Unavailable Liyah Patterson MD Primary Care Provider [phone] Antione Segura PA-C Primary Care Provider [phone] Rhett Cortez MD Unavailable Reason for Referral * MRI/CAT Scan - Closed Specialty Diagnoses / Procedures Referred By Contac t Referred To Contact Procedures CT Head Outside (No Interpretation) System, Provider Not In, PhD [address] [address] Referral ID Status Reason Start Date Expiration Date Visits Re quested Visits Authorized [id number] Closed 06/20/2018 06/20/2019 1 1 * MRI/CAT Scan - Closed Specialty Diagnoses / Procedures Referred By Contac t Referred To Contact Procedures CT Face Outside (No Interpretation) System, Provider Not In, PhD [address] [address] Referral ID Status Reason Start Date Expiration Date Visits Re quested Visits Authorized [id number] Closed 06/20/2018 06/20/2019 1 1 Encounter Details Date Type Department Care Team (Late st Contact Info) Description 06/20/2018 Ancillary Orders [facility],Outside Imaging [address] [place] [address] System, Provider [place] In, [place] [address] Social History Tobacco Use Types Packs/Day Years [...] 2:00 AM EDT Home Care Visit [facility] [address] [place] [phone] Krysta Charles [address] [place] [address] 03/28/2025 9:40 AM EDT Office Visit [facility] Internal Medicine 40 [place] [address] Antione Segura PA-C [address] [place] [address] 06/25/2025 9:30 AM EST Telemedicine [facility] Neurology [address] [place] [address] Jn Cardoza MD 22 [facility], 2nd [place] [address] documented as of this encounter Results * [...] Time PHQ-2 Depression Total Score: 0 06/16/19 1:54 PM EST documented as of this encounter Care Teams Advanced Practice Professional Relationship Specialty Start Date End Date Lang Germain MD [address] [place] [address] [email or web address] PCP - General Internal Medicine 06/13/18 06/30/18 Jennifer Duke FORESTRY FOREMAN [address] [place] [address] [email or web address] PCP - General Family Medicine 07/01/18 08/02/18 Lang Germain MD [address] [place] [address] [email or web address] PCP - General Internal Medicine 08/03/18 09/07/18 Jennifer Duke NP [address] [place] [address] [email or web address] PCP - General Family Medicine 09/08/18 09/14/18 Lang Germain MD [address] [place] [address] [email or web address] PCP - General Internal Medicine 09/15/18 10/02/18 Jennifer Duke NP [address] [place] [address] [email or web address] PCP - General Family Medicine 10/03/18 10/05/18 Lang Germain MD [address] [place] [address] [email or web address] PCP - General Internal Medicine 10/06/18 10/12/18 Jennifer Duke NP [address] [place] [address] [email or web address] PCP - General Family Medicine 10/13/18 11/09/18 Lang Germain MD [address] [place] [address] [email or web address] PCP - General Internal Medicine 11/10/18 11/22/18 Jennifer Duke NP [address] [place] [address] [email or web address] PCP - General Family Medicine 11/23/18 11/30/18 Lang Germain MD [address] [place] [address] [email or web address] PCP - General Internal Medicine 12/01/18 12/13/18 Jennifer Duke NP [address] [place] [address] [email or web address] PCP - General Family Medicine 12/14/18 11/12/19 Lang Germain MD [address] [place] [address] [email or web address] PCP - General Internal Medicine 11/13/19 12/03/19 Jennifer Duke NP [address] [place] [address] [email or web address] PCP - General Family Medicine 12/04/19 01/23/20 Lang Germain MD [address] [place] [address] [email or web address] PCP - General Internal Medicine 01/24/20 01/30/20 Jennifer Duke NP [address] [place] [address] [email or web address] PCP - General Family Medicine 01/31/20 06/22/23 Sirisha Huertas FNP [address] [place] [address] [email or web address] PCP - General Nurse Practitioner 06/23/23 08/03/24 Liyah Patterson MD [address] [place] [address] [email or web address] PCP - General Family Medicine 08/04/24 10/11/24 Antione Segura PA-C [address] [place] [address] PCP - General Physician Abstract Searcher 10/12/24 Charbel Webber MD [address] [place] [address], [address] [place] [address] Historical LMR Provider 04/01/17 0 Alverto Gandara MD [address] [place] [address], [address] [place] [address] Historical LMR Provider 04/01/17 12/03/19 Maikel Rawls MD [address] [place] [address] [email or web address] Historical LMR Provider 04/01/17 12/03/19 Lang Germain MD [address] [place] [address] [email or web address] Insurance Assigned Provider 09/18/23 02/19/24 Jennifer Duke NP [address] [place] [address] [email or web address] Nurse Practitioner Family Medicine 11/13/19 01/30/20 Jn Cardoza MD [address] [place] [address], [address] [place] [address] Neurology 02/03/24 Denys Henriquez MD [address] [place] [address] [place] [address] Pulmonary Disease 02/03/24 Liyah Patterson MD [address] [place] [address] [email or web address] Insurance Assigned Provider 02/19/24 01/20/25 Rhett Coretz MD [address] [place] [address] Insurance Assigned Provider 01/20/25 documented as of this encounter Additional Source Comments The information contained in this document represents components of the legal health record. It is not the complete legal health record.[facility]
--- OUTSIDE RECORDS SUMMARY | 2025-02-21 11:16 | XMS_ITS | Encounter Summary ---
Author Organization [facility] Address [address] [address] Phone Care Team Providers Care Foundation Engineer Name Role Phone Jn Cardoza MD Unavailable Denys Henriquez MD Unavailable Antione Segura PA-C Primary Care Provider Rhett Cortez MD Unavailable Encounter Details Date Type Department Care Team (Late st Contact Info) Description 02/09/2025 Home Health Resumption of Care Planning [facility] [address] [place] [address] Koki Simons RN [address] [place] [address] [email or web address] Social History Tobacco Use [...] high school, GED, job training, learning the [place] language, technical skills, or developing parenting skills)? [...] 2:00 AM EDT Home Care Visit [facility] [address] [place] [address] Juliana Charlesliyah [address] [place] [address] 03/28/2025 9:40 AM EDT Office Visit [facility] Internal Medicine [address] [place], [place] [phone] Antione Segura PA-C [address] [place] [address] 06/25/2025 9:30 AM EST Telemedicine [facility] Neurology [address] [place] [address] Jn Cardoza MD [address] [facility] [place] [address] documented as of this encounter Visit Diagnoses Not on filedocumented in this encounter Additional Health Concerns Assessment Noted Time PHQ-9 Depression Total Score: 15 025 9:44 AM EDT PHQ-2 Depression Total Score: 4 02/01/20 25 9:44 AM EDT documented as of this encounter Care Teams Foundation Engineer Relationship Specialty Start Date End Date Antione Segura PA-C [address] [place], [place] [phone] PCP - General Physician Right Of Way Appraiser 10/12/24 Jn Cardoza MD [address] [facility] [place] [address] [email or web address] Neurology 02/03/24 Denys Henriquez MD [address] [place] [address] [place] [address] Pulmonary Disease 02/03/24 Rhett Cortez MD [address] [place] [address] [email or web address] Insurance Assigned Provider 01/20/25 documented as of this encounter Additional Source Comments The information contained in this document represents components of the legal health record. It is not the complete legal health record.[facility]
--- OUTSIDE RECORDS SUMMARY | 2025-02-21 11:16 | XMS_ITS | Clinical Summary ---
Author Organization [facility] Address [address] [place] [phone] Phone Care Team Providers Care Condenser Tester Name Role Phone Jn Cardoza MD Unavailable Denys Henriquez MD Unavailable Antione Segura PA-C Primary Care Provider [phone] Rhett Cortez MD Unavailable Allergies Active Allergy [...] lungs 2 (two) times a day. 01/27/20 Active predniSONE (DELTASONE) 10 MG tablet Take 10 mg by mouth daily. TAPER: [id number] 10MG X4DAYS 5MG X4DAYS 02/13/20 Active TRELEGY ELLIPTA 200-62.5-25 mcg inhaler INHALE 1 [...] DAYS, 20MG- 2 DAYS, 10MG- 2 DAYS 01/09/202024 Discontin ued(No longer taking) oxyCODONE 5 MG immediate release tablet Take 1 tablet (5 mg total) by mouth every 12 (twelve) hours as needed for pain (specific location in comments). 28 tablet 01/15/20 25 2024 Discontin ued(Reord er) oxyCODONE 5 MG immediate release tabletIndications:S acroiliitis, not elsewhere classified Take 1 tablet (5 mg total) by mouth every 12 (twelve) hours as needed for pain (specific location in comments). 28 tablet 02/05/20 25 2024 Active Problems Problem Noted Date Diagnosed Date Acute on chronic hypoxic respiratory failure Assessment & Plan (12/28/2024 6:54 PM EDT): Respiratory status improved on course of antibiotics and prednisone. Continue deep breathing and monitor for any worsened respiratory status. Monitor home spO2. Continue benzonatate prn. Continue O2 therapy as prescribed. Referral placed to [facility] Pulmonology. Persistent cough 12/28/2024 Trigeminal neuralgia [...] last year and this was completed at [facility] through her mutuel cashier -Her blood pressures have been not well-controlled [...] daily. She follows with Dr. Thurman at [facility]. Patient follows regularly with him. Her [...] Does have outpatient stress test scheduled with [facility] Cardiology. Discussed that results would indicate future management and whether that may include cardiac catheterization. I do not see record of this within her discharge summary from [facility] Assessment & Plan (12/22/2023 9:33 AM EDT): [...] does have an upcoming appointment with her armament aircraft mechanic next week. Of note she also saw another armament aircraft mechanic Remy Bautista out at [facility] pulmonary and has a follow-up [...] follows closely with Dr. Henriquez out of [facility]. She is on Daliresp, DuoNebs and [...] a scheduled appointment on 12/18 with her armament aircraft mechanic. She is hoping to get this moved [...] follows closely with Dr. Henriquez out of [facility]. She is on Daliresp, DuoNebs and [...] Continue prednisone as prescribed upon discharge from [facility]. Discussed concern for coronary requirement of nebulizer treatments and albuterol rescue inhaler. We also reviewed the importance of vaping cessation, she remains precontemplative. She does have follow-up appointment scheduled with Dr. Henriquez and has resumed VNA services. Assessment & Plan (11/29/2023 5:28 PM EDT): Recent admission for COPD exacerbation with acute hypoxemic respiratory failure. Current armament aircraft mechanic is Dr. Henriquez at [facility]. She is interested in establishing care with [facility] pulmonology some of her specialists are within the [facility] system for better continuity of care. She [...] should be seen and followed by a mop man which she does already have appointment scheduled [...] how this is not appropriate given prescribed Kersey for pain and risk of IRRIGATION PUMP INSTALLER depression. She is aware of these risks and agrees to continuing medication as prescribed. She understands that she can contact the office should she be interested in discussion of medication regimen. Assessment & Plan (11/01/2023 10:20 AM EDT): PHQ9 Flowsheet Row Office Visit from 10/28/2023 in [facility] Primary Care PHQ-9 Total Score 24 [...] 3 times daily and she was on Kersey however during her last hospital stay this [...] Diagnosed Date Resolved Date Chronic bronchitis 10/12/2024 5 Current every day cannabis vaping 12/22/2023 10/12/2024 [...] study and speech evaluation when inpatient at [facility]. Discussed referral to gastroenterology discussed potential of [...] EST): Continue follow-up with Dr. 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 We discussed concern for IRRIGATION PUMP INSTALLER depression and need to minimize use especially [...] Encounters Date Type Department Care Team Description 02/21/2025 Episode Documentation Update [facility] [address] [place] [phone] Margy Rubalcava 02/20/2025 Orders Only [facility] [address] [place] [address] Provider, MD Omar 02/19/2025 10:30 AM EDT Home Care Visit [facility] [address] [place] [phone] Shakira Hand, HUA SN PRN HOME VISIT 02/19/2025 9:00 AM EDT Home Care Visit [facility] [address] [place] [phone] Krysta Charles HOME VISIT 02/16/2025 Home Care Visit [facility] [address] [place] [phone] Laquita Mchugh, PT TELEPHONE ENCOUNTER 02/16/2025 Telephone [facility] [address] [place] [address] Antione Segura PA-C Referral ([facility] Pulmonology) 02/16/2025 Home Care Visit [facility] [address] [place] [phone] Krysta Charles HOME VISIT 02/15/2025 9:00 AM EDT Office Visit [facility] [address] [place] [address] Antione Segura PA-C Pulmonary emphysema, unspecified emphysema type (Primary Dx) 02/15/2025 Home Care Visit [facility] [address] [place] [phone] Laquita Mchugh, PT TELEPHONE ENCOUNTER 02/14/2025 1:30 PM EDT Home Care Visit [facility] [address] [place] [phone] Shakira Hand, HUA SN HOME VISIT 02/14/2025 Home Care Visit [facility] [address] [place] [address] Laquita Mchugh, PT TELEPHONE ENCOUNTER 02/14/2025 Orders Only [facility] [address] [place] [address] ProviderOmar MD 02/14/2025 Documentation [facility] [address] [place] [address] Antione Segura PA-C 02/14/2025 Home Care Visit [facility] [address] [place] [phone] Krysta Charles HYDROGEN BRAZE FURNACE OPERATOR HOME VISIT 02/13/[address] [address] Antione Segura PA-C Appointment (Tcm+discharged 02/09/25 ) 02/12/2025 12:30 PM EDT Home Care Visit [facility] [address] [place] [phone] Shakira Hand, HUA SN OASIS RESUMPTION OF CARE (VERONIKA) 02/11/2025 Home Care Visit [facility] [address] [place] [phone] Maritza Calix, RN CASE COMMUNICATION 02/09/2025 Home Health Resumption of Care Planning [facility] [address] [place] [address] Koki Simons RN 02/08/2025 1:00 AM EDT Home Care Visit [facility] [address] [place] [address] Shakira Hand RN SN OASIS TRANSFER 02/05/2025 Home Care Visit [facility] [address] [place] [address] Krysta Charles CASE COMMUNICATION 02/01/2025 3:30 PM EDT Home Care Visit [facility] [address] [place] [address] Yane Lanza, PT PT HOME VISIT 02/01/2025 4:00 AM EDT Home Care Visit [facility] [address] [place] [address] Krysta Charles HYDROGEN BRAZE FURNACE OPERATOR HOME VISIT 01/31/2025 1:30 PM EDT Home Care Visit [facility] [address] [place] [address] Shakira Hand RN SN HOME VISIT 01/29/2025 3:30 PM EDT Home Care Visit [facility] [address] [place] [address] Yane Lanza, PT PT HOME VISIT 01/29/2025 8:15 AM EDT Home Care Visit [facility] [address] [place] [address] Krysta Charles HYDROGEN BRAZE FURNACE OPERATOR HOME VISIT 01/29/2025 Refill [facility] [address] [place] [address] Antione Segura PA-C Medication Refill 01/29/2025 Telephone [facility] [address] [place] [address] Antione Segura PA-C Request For Order(s) 01/26/2025 Home Care Visit [facility] [address] [place] [address] Karlene Berumen, RN TELEPHONE ENCOUNTER 01/25/2025 2:30 PM EDT Home Care Visit [facility] [address] [place], [place] [phone] Yane Lanza, PT PT EVALUATION 01/25/2025 4:00 AM EDT Home Care Visit [facility] [address] [place] [address] Krysta Charles HYDROGEN BRAZE FURNACE OPERATOR HOME VISIT 01/25/2025 1:00 AM EDT Home Care Visit [facility] [address] [place] [address] Karlene Berumen, RN SN HOME VISIT 01/24/2025 Telephone [facility] [address] [place] [address] Antione Segura PA-C PFT 01/24/2025 Telephone [facility] [address] [place] [address] Eliana Prabhakar, ANGELINA Breast Cancer Screening 01/23/2025 9:00 AM EDT Home Care Visit [facility] [address] [place] [address] Rich Mariscal LPN HOME VISIT 01/23/2025 4:30 AM EDT Home Care Visit [facility] [address] [place] [address] Krysta Charles HYDROGEN BRAZE FURNACE OPERATOR HOME VISIT 01/22/2025 Home Care Visit [facility] [address] [place] [address] Yane Lanza, PT TELEPHONE ENCOUNTER 01/22/2025 Refill [facility] [address] [place] [address] Antione Segura PA-C Medication Refill 01/18/2025 11:00 AM EDT Home Care Visit [facility] [address] [place] [phone] Shakira Hand RN SN HOME VISIT 01/18/2025 9:15 AM EDT Home Care Visit [facility] [address] [place] [phone] Krysta Charles HYDROGEN BRAZE FURNACE OPERATOR HOME VISIT 01/18/2025 Telephone [facility] [address] [place] [address] Antione Segura PA-C Medication Question (Gabapentin) 01/18/2025 Episode Documentation Update [facility] [address] [place] [phone] Mayra Burton 01/17/2025 2:30 PM EDT Home Care Visit [facility] [address] [place] [phone] Krysta Charles HYDROGEN BRAZE FURNACE OPERATOR HOME VISIT 01/17/2025 Telephone [facility] [address] [place] [address] Elida Lindquist RN VNA Orders 01/15/2025 Episode Documentation Update [facility] [address] [place] [phone] Micheal Mayra 01/14/2025 Home Care Visit [facility] [address] [place] [phone] Raya Howard, NIKKO TELEPHONE ENCOUNTER 01/12/2025 Refill [facility] [address] [place] [address] Antione Segura PA-C Medication Refill 01/12/2025 Telephone [facility] [address] [place], [place] [phone] Antione Segura PA-C VNA Orders 01/11/2025 10:00 AM EDT Home Care Visit [facility] [address] [place] [address] Shakira Hand, HUA SN HOME VISIT 01/11/2025 Episode Documentation Update [facility] [address] [place] [address] Matthewmikal Mayra 01/10/2025 12:30 PM EDT Home Care Visit [facility] [address] [place] [address] Shakira Hand, HUA SN OASIS RESUMPTION OF CARE (VERONIKA) 01/10/2025 Telephone [facility] [address] [place], [place] [phone] Antione Segura PA-C Referral (Pulmonology referral update to urgent) 01/09/2025 3:00 PM EDT Home Care Visit [facility] [address] [place] [address] Shakira Hand, HUA SN OASIS TRANSFER 01/09/2025 Home Health Resumption of Care Planning [facility] [address] [place] [address] Koki Simons RN 01/04/2025 Orders Only [facility] [address] [place], [place] [phone] ProviderOmar MD 01/04/2025 Telephone [facility] [address] [place], [place] [phone] Antione Segura PA-C Shortness of Breath 01/04/2025 Telephone [facility] [address] [place] [phone] Brittnee Vigil MD 01/02/2025 1:00 PM EDT Home Care Visit [facility] [address] [place] [phone] Shakira Hand RN SN HOME VISIT 01/02/2025 Telephone [facility] [address] [place] [address] Eliana Prabhakar CNP Follow-up 01/01/2025 Home Care Visit [facility] [address] [place] [phone] Claudia Charles, PT PT EVALUATION 12/29/2024 12:00 PM EDT Home Care Visit [facility] [address] [place] [phone] Shakira Hand RN SN HOME VISIT 12/28/2024 3:00 PM EDT Office Visit [facility] [address] [place] [address] Eliana Prabhakar CNP Acute on chronic hypoxic respiratory failure (Primary Dx); Persistent cough; Anxiety; Trigeminal neuralgia; 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 [address] [place] [phone] Shakira Hand RN SN OASIS START OF CARE (SOC) 12/26/2024 Refill [facility] [address] [place] [address] Antione Segura PA-C Medication Refill 12/26/2024 Documentation [facility] [address] [place] [address] Antione Segura PA-C 12/25/2024 Home Care Visit [facility] [address] [place] [phone] Lelo Roa RN NON ADMIT HOME HEALTH VISIT 12/25/2024 Orders Only [facility] [address] [place] [phone] Homehealth, Interface ProviderMD 12/23/2024 Home Care Visit [facility] [address] [place] [phone] Maritza Calix, HUA CASE COMMUNICATION 12/22/2024 Orders Only [facility] [address] [place] [address] ProviderOmar MD 12/20/2024 Telephone [facility] [address] [place] [address] Antione Segura PA-C TCM Visit (Unable to schedule) 12/18/2024 Orders Only [facility] [address] [place] [phone] Homehealth, Interface ProviderMD 12/18/2024 Home Care Visit [facility] [address] [place] [phone] Shakira Hand RN SN NON OASIS DISCHARGE NON VISIT/TELEPHONE 12/14/2024 5:35 AM EDT - 12/14/2024 11:59 PM EDT Hospital Encounter [facility] [address] [place] [place], [place] [phone] Nba Roberson MD Discharge Disposition: Home or Self Care 12/11/2024 Home Care Visit [facility] [address] [place] [address] Lelo Roa, RN CASE COMMUNICATION 12/11/2024 Refill [facility] [address] [place] [address] Sirisha Huertas FNP Medication Refill 12/09/2024 Home Care Visit [facility] [address] [place] [address] Maritza Calix, HUA CASE COMMUNICATION 12/08/2024 Home Care Visit [facility] [address] [place] [address] Lelo Roa RN TELEPHONE ENCOUNTER 12/06/2024 Home Health Resumption of Care Planning [facility] [address] [place] [phone] Diana Torres RN 12/01/2024 [facility] [address] [place] [phone] Lelo Roa, RN SN OASIS TRANSFER 12/01/2024 Orders Only [facility] [address] [place] [address] ProviderOmar MD 11/29/2024 4:40 PM EDT Office Visit [facility] [address] [place] [address] Antione Segura PA-C Acute congestive heart failure, unspecified heart failure type (Primary Dx) 11/28/2024 Telephone [facility] [address] [place] [address] Antione Segura PA-C Shortness of Breath; Leg Swelling 11/23/2024 11:40 AM EDT Office Visit [facility] [address] [place] [address] Sue Springer PA-C Benign essential hypertension (Primary Dx) 11/23/2024 Telephone [facility] [address] [place] [address] Antione Segura PA-C Referral 11/23/2024 Telephone [facility] [address] [place] [address] Antione Segura PA-C Hypertension 11/22/2024 5:30 AM EDT Home Care Visit [facility] [address] [place] [phone] Rich Mariscal VETERINARY PARASITOLOGIST HOME VISIT 11/22/2024 Telephone [facility] [address] [place], [place] [phone] Maribel London TCM Visit; feet cramping 11/22/2024 Home Care Visit [facility] [address] [place] [phone] Samson Nolan Jr. [facility] HOME VISIT from Last 3 Months Immunizations [...] high school, GED, job training, learning the [place] language, technical skills, or developing parenting skills)? [...] F) 02/19/2025 10:45 AM EDT Respiratory Rate 21 02/15/2025 9:02 AM EDT Oxygen Saturation 96% 02/19/2025 10:45 AM EDT [...] Visit [facility] [address] [place] [phone] Krysta Charles [address] [place] [address] 03/28/2025 9:40 AM EDT Office Visit [facility] [address] [place] [address] Antione Segura PA-C [address] [facility] [place] [address] [email or web address] 06/25/2025 9:30 AM EST Telemedicine [facility] [address] [place] [address] Jn Cardoza MD [address] [facility], [address]nd [place] [address] [email or web address] Health Maintenance Due Date Last Done Comments [...] REPEAT PHQ 03/03/2025 01/31/2025, 01/31/2025 BLOOD PRESSURE 08/19/2025 02/19/2025 DEPRESSION SCREENING 01/31/2026 01/31/2025, 02/01/20 25 CREATININE [...] OUTSIDE IMAGING Routine 02/17/2025 11:14 AM EDT OUTSIDE US BREAST REPORT ONLY Routine 02/14/2025 [...] REPORT ONLY Routine 11/30/2024 3:[address] CHEST LUNG CANCER SCREENING ANNUAL [...] Relevant to Health Maintenance Results * Outside Imaging Report Only (02/17/2025 11:14 AM EDT) us Historical Provider MD DAWKINS XR CHEST Final Res ult * Outside US Breast Report Only (02/14/2025 4:39 PM EDT) us Historical Provider MD DAWKINS US BREAST Final Res ult * MAMMOGRAPHY FOR RESULT ENTRY ONLY (02/14/2025 2:39 PM EDT) Result [facility] Provider HEALTH MAINTENANCE Final Result * Outside Potassium Level (02/08/2025) Only the most recent of2 resultswithin the time period is included. Potassium level - External 3.8 3.4 - 5.0 mmol/L Result [facility] LAB BLOOD ORDERABLES Mariya l Result * (ABNORMAL) Outside Serum Creatinine Level (02/08/2025) Only the most recent of2 resultswithin the time period is included. Creatinine, serum - External 0.66(A) 0.8 - 1.3 mg/dL Result [facility] LAB BLOOD ORDERABLES Mariya l Result * Outside ALT Level (02/05/2025) Only the most recent of2 resultswithin the time period is included. ALT - External 15 5 - 30 U/L Result [facility] LAB BLOOD ORDERABLES Mariya l Result * Outside XR??Chest Report Only (01/04/2025 1:21 PM EDT) Result [facility] Provider IMG XR CHEST Final Res ult * Outside Imaging Report Only (12/21/2024 1:01 PM EDT) Result [facility] Provider IMG XR CHEST Final Res ult * Outside Imaging Report Only (12/21/2024 10:25 AM EDT) Result [facility] Provider IMG XR CHEST Final Res ult * Outside Imaging Report Only (12/21/2024 8:15 AM EDT) Result [facility] Provider IMG XR CHEST Final Res ult * Outside Imaging Report Only (12/21/2024 8:12 AM EDT) Result [facility] Provider IMG XR CHEST Final Res ult * (ABNORMAL) Comprehensive metabolic panel (12/14/2024 4:45 AM EDT) SODIUM 140 133 - 146 mmol/L [facility] POTASSIUM 3.8 3.3 - 5.1 mmol/L [facility] CHLORIDE 97 96 - 108 mmol/L [facility] CO2 34 21 - 35 mmol/L [facility] BUN 19 6 - 19 mg/dL [facility] CREATININE 0.70 0.5 - 1.5 mg/dL [facility] GLUCOSE 87 70 - 99 mg/dL [facility] ALBUMIN 4.0 3.9 - 4.8 g/dL [facility] TOTAL PROTEIN 6.2(L) 6.5 - 8.0 g/dL [facility] CALCIUM 9.8 8.4 - 10.3 mg/dL [facility] ALKALINE PHOSPHATASE 63 39 - 117 U/L [facility] TOTAL BILIRUBIN <0.2 0.0 - 1.2 mg/dL [facility] AST 11 0 - 37 U/L [facility] ALT 10 0 - 40 U/L [facility] GLOBULIN 2.2 1 - 4.8 g/dL [facility] EGFR 98 >59 mL/min/1.7 3m2 [facility] Comment:Estimated glomerular filtration rate calculated using the CKD-EPI refit equation. ANION GAP 13 10 - 20 mmol/L [facility] Blood 12/14/2024 4:45 AM EDT 12/14/2024 6:03 AM EDT us Jn Cardoza MD LAB BLOOD ORDERABLES Final Resul t [facility] [address] [place] [address] * (ABNORMAL) CBC and differential (12/14/2024 4:45 AM EDT) WBC 14.11(H) 4.00 - 11.00 K/uL [facility] RBC 3.99(L) 4.00 - 5.20 M/uL [facility] HGB 12.7 12.0 - 16.0 g/dL [facility] HCT 40.1 36.0 - 46.0 % [facility] PLT 394 150 - 450 K/uL [facility] MCV 100.5(H) 80.0 - 100.0 fL [facility] MCH 31.8(H) 27.0 - 31.0 pg [facility] MCHC 31.7(L) 32.0 - 36.0 g/dL [facility] RDW 13.5 11.5 - 14.5 % [facility] MPV 9.2 8.4 - 12.0 fL [facility] NRBC 0.00 0.00 /100 WBCs [facility] ABSOLUTE NRBC 0.00 0.00 K/uL [facility] DIFF METHOD Auto [facility] NEUTS 72.2 48.0 - 76.0 % [facility] LYMPHS 15.0(L) 18.0 - 41.0 % [facility] MONOS 9.9 4.0 - 11.0 % [facility] EOS 1.4 0.0 - 5.0 % [facility] BASOS 0.4 0.0 - 1.5 % [facility] Granulocytes, immature (%) 1.1(H) 0.0 - 0.9 % [facility] ABSOLUTE NEUTS 10.20(H) 1.92 - 7.60 K/uL [facility] ABSOLUTE LYMPHS 2.11 0.72 - 4.10 K/uL [facility] ABSOLUTE MONOS 1.39(H) 0.16 - 1.10 K/uL [facility] ABSOLUTE EOS 0.20 0.00 - 0.50 K/uL [facility] ABSOLUTE BASOS 0.05 0.00 - 0.15 K/uL [facility] Granulocytes, immature 0.16(H) 0.00 - 0.09 K/uL [facility] Blood 12/14/2024 4:45 AM EDT 12/14/2024 6:03 AM EDT us Jn Cardoza MD LAB BLOOD ORDERABLES Final Resul t [facility] [address] [place] [address] * Outside CT Head/Neck Report Only (12/01/2024 4:44 PM EDT) Historical Provider MD IMG CT HEAD/NECK Final Re sult * Outside [...] be found at:[email or web address] us Lang Germain MD IMG CT CHEST Final Result * (ABNORMAL) Lipid panel (08/22/2021 8:13 AM EST) HDL 54 mg/dL [facility] Comment: Interpretation <40 mg/dL: Low HDL cholesterol (major risk factor for CHD) Greater than or equal to 60 mg/dL: High HDL cholesterol ( negative risk factor for CHD) HDL - cholesterol is affected by a number of factors, e.g. smoking, excerise, hormones, sex and age. CHOLESTEROL 237 0 - 240 mg/dL [facility] TRIGLYCERIDES 201(H) 30 - 160 mg/dL [facility] LDL 143(H) 50 - 129 mg/dL [facility] Comment: LDL levels in terms of risk for coronary heart disease: <100 mg/dL: Optimal 100-129 mg/dL: Near or above optimal 130-159 mg/dL: Borderline high 160-189 mg/dL: High >190 mg/dL: Very High CARDIAC RISK RATIO 4.4 3.3 - 4.4 C [facility] Blood 08/22/2021 8:13 AM EST 08/22/2021 8:17 AM EST us Jennifer Duke [employer] LAB BLOOD ORDERABLES Final Resu lt [address] [address] * Pap Smear (02/22/2020 12:00 AM EDT) 02/22/2020 02/23/2020 8:2 1 AM EDT Narrative SEE NARRATIVE - 02/27/2020 11:20 AM EDT [address] [address] [employer] Trader: Perla Luis MD CENSUS CLERK Cytology Report FINAL DIAGNOSIS A. PAP SMEAR [...] 52, 56, 58, 59, 66, 68) by [employer] HR-HPV analysis. Clinical correlation is advised. This HPV test was performed at [facility], [address] [place] [address]. This test has been FDA approved for SurePath cervical cytology specimens. The accuracy and precision of this test for all other specimen sources has been verified in the Cytopathology Laboratory of the [facility] and has not been cleared or approved by the U.S. Food and Drug Administration. Clinical correlation is advised. CLINICAL HISTORY Date of Last Menstrual Period: 2009 Menstrual History: Post Menopausal Other Clinical Conditions: Screening Pap SPECIMEN SOURCE A: PAP SMEAR (SUREPATH) CE Patient Name: MAYRA CONSTANTINO : 1965 (Age: 55) Sex: F Institution: [facility] Location: [facility] Date of Collection: 02/22/2020 Date of Reported: 02/27/2020 11:20 Results to: Jennifer Duke MSN, BSN us Jennifer Duke NP CYTOLOGY ORDERABLES Final Resul t SEE NARRATIVE * Hepatitis C antibody, qualitative (05/25/2019 10:24 AM EST) HCV NON-REACTIV E NON-REACTI VE [facility] Blood 05/25/2019 10:2 4 AM EST 05/25/2019 10:26 AM EST us Jennifer Duke NP LAB BLOOD ORDERABLES Final Resu lt [facility] [address] [place] [address] * COLONOSCOPY FOR RESULT ENTRY ONLY (12/04/2013) Colonoscopy repeat 10 yrs us Historical Provider MD HEALTH MAINTENANCE Final Result from Last 3 Months or Most Recently Relevant to Health Maintenance Insurance [facility] Address: [facility] [address] [place] [address] MEDICARE A Member Subscriber Plan / Payer (Ef fective 2020-Present) Name:Mayra Constantino Member ID:[id number] Relation to Subscriber:Self Name:Mayra Constantino Subscriber ID:[id number] Payer ID:[id number] Group ID:Not on file Type:Medicare Address: [facility] [employer] [facility] CENTER[facility] Manufacturing [facility]. [address] [facility] [place] [address] [facility] MED[facility] A [facility] [place] [address] [facility] A [facility] Address: [facility] [id number] [place] [address] MEDICARE A [facility] MEDICARE A [facility] MED[facility] A Advance Directives For more information, please contact: [phone] (9AM - 5PM [facility], Wednesday-Wednesday) Documents on File Type Date Recorded Patient Reworker Expl anation MOLST 02/15/2025 MOLST * Full Code (Latest Code Status on File) Date Activated Date Inactivated Comments 02/15/2025 9:52 AM Question Answer Comments Code Status Confirmed With: Patient Care Teams Condenser Tester Relationship Specialty Start Date End Date Antione Segura PA-C [address] [place] [address] PCP - General Physician News Wire Photo Operator 10/12/24 Jn Cardoza MD [address] [place] [address], 2nd [place] [address] Neurology 02/03/24 Denys Henriquez MD [address] [place] [address] [place] [address] Pulmonary Disease 02/03/24 Rhett Cortez MD [address] [place] [address] [email or web address] Insurance Assigned Provider 01/20/25 Additional Source Comments The information contained in this document represents components of the legal health record. It is not the complete legal health record.[facility]
--- OUTSIDE RECORDS SUMMARY | 2025-02-21 11:16 | XMS_ITS | Encounter Summary ---
Author Organization [facility] Address [address] [place] [address] Phone Care Team Providers Care Licensed Psychologist Director Name Role Phone Lang Germain MD Unavailable Jennifer Duke CONCRETE PUMP OPERATOR HELPER Primary Care Provider Sirisha Huertas BAIT MAN Primary Care Provider Jn Cardoza MD Unavailable Denys Henriquez MD Unavailable Liyah Patterson MD Unavailable Liyah Patterson MD Primary Care Provider [phone] Antione Segura PA-C Primary Care Provider Rhett Cortez MD Unavailable Encounter Details Date Type Department Care Team (Late st Contact Info) Description 06/30/2022 Procedure Pass [facility], Ct Scan - [address] [address] Social History Tobacco Use Types Packs/Day Years [...] 2:00 AM EDT Home Care Visit [facility] [address] [place] [address] Charles, Krysta [address] [place] [address] 03/28/2025 9:40 AM EDT Office Visit [facility] Internal Medicine [address] [place] [address] Antione Segura PA-C [address] [place] [address] 06/25/2025 9:30 AM EST Telemedicine [facility] Neurology [address] [place] [address] Jn Cardoza MD 22 [facility], 2nd [place] [address] documented as of this encounter Visit Diagnoses Not on filedocumented in this encounter Additional Health Concerns Assessment Noted Time PHQ-9 Depression Total Score: 18 023 8:53 AM EST PHQ-2 Depression Total Score: 6 06/26/19 23 8:53 AM EST documented as of this encounter Care Teams Licensed Psychologist Director Relationship Specialty Start Date End Date Jennifer Duke, CONCRETE PUMP OPERATOR HELPER [address] [place] [address] PCP - General Family Medicine 01/31/20 06/22/23 Sirisha Huertas, BAIT MAN [address] [place] [address] [email or web address] PCP - General Nurse Practitioner 06/23/23 08/03/24 Liyah Patterson MD [address] [place] [address] [email or web address] PCP - General Family Medicine 08/04/24 10/11/24 Antione Segura PA-C [address] [place] [address] [email or web address] PCP - General Physician Recruiting Intern 10/12/24 Lang Germain MD [address] [place] [address] [email or web address] Insurance Assigned Provider 09/18/23 02/19/24 Jn Cardoza MD [address] [place] [address], 2nd [place] [address] [email or web address] Neurology 02/03/24 Denys Henriquez MD [address] [place] [address] [place] [address] Pulmonary Disease 02/03/24 Liyah Patterson MD [address] [place] [address] [email or web address] Insurance Assigned Provider 02/19/24 01/20/25 Rhett Cortez MD [address] [place] [phone] [email or web address] Insurance Assigned Provider 01/20/25 documented as of this encounter Additional Source Comments The information contained in this document represents components of the legal health record. It is not the complete legal health record.[facility]
== END 2025-02-21 10:14 | disposition home or self-care (01) ==
LOC: HO.HPS 09:28
PROVIDERS: PCP Physician Assistant Surgical; Visit Provider Hospitalist
DX: J41.0 Simple chronic bronchitis (principal); R91.8 Other nonspecific abnormal finding of lung field; T78.40XA Allergy, unspecified, initial encounter; D80.1 Nonfamilial hypogammaglobulinemia; J98.4 Other disorders of lung; I35.0 Nonrheumatic aortic (valve) stenosis; I50.32 Chronic diastolic (congestive) heart failure
CPT/HCPCS: 99215

== ENCOUNTER 2025-02-26 14:42 | Outpatient (AMB) | payer BC, SELFPAY ==
--- OUTSIDE RECORDS SUMMARY | 2024-12-27 15:00 | XMS_ITS | Encounter Summary ---
Author Organization [facility] Address [address] [address] Phone Care Team Providers Care Police District Switchboard Operator Name Role Phone Jn Cardoza MD Unavailable Denys Henriquez MD Unavailable [phone] Liyah Patterson MD Unavailable Antione SeguraC Primary Care Provider Rhett Cortez MD Unavailable Reason for Visit * Auth/Cert (Routine) Specialty Diagnoses / Procedures Referred By Dary smith Referred To Contact Referral ID Status Reason Start Date Expiration Date Visits Re quested Visits Authorized [id number] 1 1 Encounter Details Date Type Department Care Team (Late st Contact Info) Description 12/27/2024 3:00 PM EDT Home Care Visit [facility] [address] [place] [phone] Shakira Hand RN [address] [place], [place] [phone] [email or web address] SN OASIS START OF CARE (SOC) Social History Tobacco Use Types Packs/Day Years Used Date Smoking Tobacco: Former Cigarettes 0.8 42.6 0 11/25/1981 - 04/2024 Passive Smoke Exposure: Never Smokeless Tobacco: Never Alcohol Use Standard Drinks/Week Comments Yes 0 (1 standard drink = 0.6 oz pur e alcohol) 1-2 drinks, 2 x year Home Health Assessment: Transportation Answer Date Recorded Lack of Transportation (Medical) No 02/12/2025 Lack of Transportation (Non-Medical) No 02/12/2025 Patient Unable or Declines to Respond No 02/12/2025 Child or Family Care Answer Date Record ed Do you have problems with on e of the following making it difficult for you to work, study, or receive health care? No 01/31/2025 Education Answer Date Recorded Are you interested in help w ith more adult education (for example, completing high school, GED, job training, learning the [place] language, technical skills, or developing parenting skills)? No 01/31/2025 Are you concerned about learning? Not on file 01/31/2025 No 01/31/2025 Yes 01/31/2025 Food Answer Date Recorded Within the past 6 months we worried whether our food would run out before we got money to buy more. Sometimes True 01/31/2025 Within the past 6 months the food we bought just didn't last and we didn't have enough money to get more. I choose not to answer 01/31/2025 Residential Stability Answer Date Recor ded What is your housing situation today? I have marianna sing 01/31/2025 How many times have you move d in the past 12 months? Zero (I did not move) 01/31/2025 Paying for Meds Answer Date Recorded Do you have trouble paying for medicines? No 01/31/2025 Paying Utility Bills Answer Date Record ed Do you have trouble paying your heating or elect ricity bill? No 01/31/2025 Transportation Answer Date Recorded Has the lack of transportati on kept you from medical appointments or from getting medications? Yes 01/31/2025 Digital Access Answer Date Recorded No 01/31/2025 Yes 01/31/2025 Do you have reliable internet access at home? Ye s 01/31/2025 Do you have a device (e.g., phone, tablet, computer) with a working camera? Yes 01/31/2025 Intimate Partner Violence Answer Date R ecorded Denied Basic Needs Not on file 10/12/2024 In the past 12 months have y ou been in a relationship with a person who hurts, threatens, or tries to control you? No 10/12/2024 Worried food would run out Not on file 10/12 In the past 12 months have y ou been in a relationship with a person who hurts, threatens, or tries to control you? No 10/12/2024 Comments No Sex and Gender Information Value Date Recorded Sex Assigned at Female 11/13/2019 12:26 PM EDT Legal Sex Female 5:13 PM EST Gender Identity Female 11/13/2019 12:26 PM EDT Sexual Orientation Straight 11/13/2019 12 :26 PM EDT documented as of this encounter Last Filed Vital Signs Vital Sign Reading Time Taken Comments Blood Pressure 132/70 12/27/2024 3:55 PM EDT Pulse 96 12/27/2024 3:55 PM EDT Temperature 36.4 C (97.5 F) 12/27/2024 3:55 PM EDT Respiratory Rate - - Oxygen Saturation 97% 12/27/2024 3:55 PM EDT Inhaled Oxygen Concentration - - Weight - - Height - - Body Mass Index - - documented in this encounter Plan of Treatment Upcoming Encounters Date Type Department Care Team (Late st Contact Info) Description 03/01/2025 1:00 AM EDT Home Care Visit [facility] [address] [place] [address] Shakira Hand, HUA [address] [place] [address] [email or web address] 03/08/2025 1:00 AM EDT Home Care Visit [facility] [address] [place] [address] Shakira Hand RN [address] [place] [address] [email or web address] 03/15/2025 Home Care Visit [facility] [address] [place] [address] Shakira Hand RN [address] [place] [address] [email or web address] 03/22/2025 1:00 AM EDT Home Care Visit [facility] [address] [place] [phone] Shakira Hand RN [address] [place] [address] [email or web address] 03/28/2025 9:40 AM EDT Office Visit [facility] [address] [place] [address] Antione Segura PA-C [address] [place] [address] [email or web address] 03/29/2025 2:00 AM EDT Home Care Visit [facility] [address] [place] [phone] Shakira Hand RN [address] [place] [address] [email or web address] 04/05/2025 2:00 AM EDT Home Care Visit [facility] [address] [place] [phone] Shakira Hand, HUA [address] [place] [address] [email or web address] 04/12/2025 1:30 AM EDT Home Care Visit [facility] [address] [place] [phone] Shakira Hand, HUA [address] [place] [address] [email or web address] 04/19/2025 12:30 AM EST Home Care Visit [facility] [address] [place] [phone] Shakira Hand RN [address] [place] [address] [email or web address] 04/25/2025 Appointment [facility] [address] [place], [place] [phone] Shakira Hand RN [address] [place] [address] [email or web address] 06/25/2025 9:30 AM EST Telemedicine [facility] [address] [place] [address] Jn Cardoza MD [address] [facility], [address]nd [place] [address] documented as of this encounter Visit Diagnoses Not on filedocumented in this encounter Additional Health Concerns Assessment Noted Time PHQ-9 Depression Total Score: 20 025 9:08 PM EDT PHQ-2 Depression Total Score: 6 12/28/19 25 9:08 PM EDT documented as of this encounter Home Health Visit - Care Plan Visit Details Visit Type -SN OASIS START O F CARE (SOC) Discipline -Jail Problems Problem Description Start Date Status Goals Interve ntions HH - Medication Management Disciplines: All Active Home Health Disciplines, Jail 12/27/2024 Active 1 goal linked to scheduled/document ed intervention 2 goal interventions scheduled/document ed in this visit HH - Focus of Care and Teaching Disciplines: All Active Home Health Disciplines w/RD 12/27/2024 Active 1 goal linked to scheduled/document ed intervention 1 goal intervention scheduled/document ed in this visit HH - Emergency Planning - Knowledge of Disciplines: All Active Home Health Disciplines 12/27/2024 Active 1 goal linked to scheduled/document ed intervention 2 goal interventions scheduled/document ed in this visit HH - Standard of Care Disciplines: All Active Home Health Disciplines 12/27/2024 Active 1 goal linked to scheduled/document ed intervention 2 goal interventions scheduled/document ed in this visit Goals Goal Associated Problem Outcome Goal Met? Visit Notes HH - Safe medication management, avoid unnecessary harm related to medication errors and/or interactions HH - Medication Management No HH - Communication and collaboration to achieve patient goals HH - Focus of Care and Teaching No HH - Knowledge of options for managing care in the event of an emergency related situation. HH - Emergency Planning - Knowledge of No HH - Achieve care management for a safe to home/community discharge from homecare HH - Standard of Care No Interventions Intervention Associated Problem/Goal Status Variance Visit Notes HH - I/E medication management: administration, purpose, dosages, preparation, setup, scheduling, side effects, food/drug interactions, and potential complications as indicated Description: Update patient's copy of medication list as needed. Problem:HH - Medication Management Goal:HH - Safe medication management, avoid unnecessary harm related to medication errors and/or interactions Completed HH - Complete medication review every visit and medication reconciliation as indicated. Pharmacy information: Problem:HH - Medication Management Goal:HH - Safe medication management, avoid unnecessary harm related to medication errors and/or interactions Completed HH - Focus of care, teaching completed and plan for next visit Problem: - Focus of Care and Teaching Goal:HH - Communication and collaboration to achieve patient goals Completed Primary Clinical Focus this Visit & Instruction Provided: PT DISCHARGED FROM [facility] ON 12/20 AND PRESENTED BACK TO [facility] ED ON 12/21 WORSENING SOB, PRODUCTIVE COUGH, GREEN SPUTUM. BP FOUND TO BE VERY LOW AT 84/36 NO TACHYCARDIA OR FEVER. BLOOD WORK UP REMARKABLE FOR LUEKOCYTOSIS 15.1. HGB IS 12.2 AND PLTS 343. NO SIGNIFICANT ELECTROLYTE IMBALANCES. NO FINDINGS OF UTI. SEROLOGY FOR COVID, INFLUENZA, RSV NEGATIVE. CXR SHOWED ACUTE SMALL AIRWAY INFLAMMATION, NO PLEURAL EFFUSIONS. ADMITTED FOR ACUTE ON CHRONIC HYPOXIA AND HYPERCAPNIC RESP FAILURE. ABD CT SHOWED POSSIBLE MILD SBO BUT O OBSTRUCTUVE LEFT RENAL CALCULI. SBO RULED OUT BY GENERAL SURGEON. HX OF NOT ALWAYS COMPLYING WITH CPAP, AND HOME MEDICATIONS PER CONCERNS OF FAMILY. PMH: COPD, TRIGEMINAL NERUALGIA, HYPERLIPEDEMA, CHRONIC PAIN, MODERATE AORTIC STENOSIS, HX CVA. PT ON HOME O2 2L. ABLE TO GO UP TO 3L WITH ACTIVITY I HOME. PTS AND BROTHER PRESENT. REPORTED CONCERNS THAT WHEN PT BECOMES SOB IT MAY BE RELATED TO HER UNCONTROLLED ANXIETY. THEY ALSO ARE CONCERNED THAT THESE EPISODES LEAD TO CONFUSION AND COULD BE WHY PT DOES NOT ALWAYS TAKE MEDS ON TIME OR MISMANAGES THEM. VS WNL, LS DIM, NO EDEMA. COUGH PERSISTENT. MEDICATIONS LIST REVIEWED FROM [facility] AND ASSISTED PT IN SETTING UP MEDICATIONS IN HER PILL ORGANIZER. DISCUSSED POSSIBLY HAVING HER SWITCH TO PREPACKAGED BLISTER PACKS. SHE EXPRESSED HESITANCE SOMETIMES HER MEDICATION DOSES CHANGE. SHE WILL FOLLOW UP WITH HER PCP OFFICE TOMMOROW. V/O OBTAINED FOR WELT STITCHER AND DOCUMENT CONTROL COORDINATOR. HER IS THE CAREGIVER BUT CANNOT ALWAYS ASSIST PT HANDS ON AND DOES NOT NECESSARILY HAVE KNOWLEDGE ON MEDICATION LIST. PT WOULD LIKE MORE HELP IN HOME AND WITH SELF CARE. DUE TO HER TRIGEMINAL NEURALGIA ON HER LEFT SIDE OF FACE AND ARM SHE CANNOT TOLERATE TOUCH OR PRESSURE FROM MASKS ON THAT SIDE. Instruction Provided to: patient and caregiver Response to Instruction/Teaching : Is partially able to teach back topics as evidenced by NEEDS RIENFORCEMENT. Plan for Next Visit Specific Focus & Education Needed: CVP, RESP ASSESS, O2 MANAGEMENT, ASSIST WITH MEDICATION PREFILL, New Orders: Updated Discharge Plan: HH - I/E management of care in an urgent or emergency (ER) situation: When to call your Home Care Team/911, ER plans, supplies, evacuation, when to contact local ER officials and how to stay informed Problem:HH - Emergency Planning - Knowledge of Goal:HH - Knowledge of options for managing care in the event of an emergency related situation. Completed - Emergency planning assessment: the emergency plan, supplies needed, emergency contact numbers and an evacuation plan were reviewed Description: Patient and Caregiver is/are knowledgeable of emergency plans. Problem:HH - Emergency Planning - Knowledge of Goal:HH - Knowledge of options for managing care in the event of an emergency related situation. Completed HH - Assess vital signs, pulse oximetry, pain, and as indicated, orthostatic vital signs Description: use agency-specific parameters Problem: - Standard of Care Goal: - Achieve care management for a safe to home/community discharge from homecare Completed HH - Assess skin integrity Problem: - Standard of Care Goal: - Achieve care management for a safe to home/community discharge from homecare Completed documented in this encounter Care Teams Police District Switchboard Operator Relationship Specialty Start Date End Date Antione Segura PA-C [address] [place] [phone] PCP - General Physician Operations Officer 10/12/24 Jn Cardoza MD [address] [place] [address], [address] [place] [address] Neurology 02/03/24 Denys Henriquez MD [address] [place] [address] [place] [address] Pulmonary Disease 02/03/24 Liyah Patterson MD [address] [place] [phone] [email or web address] Insurance Assigned Provider 02/19/24 01/20/25 Rhett Cortez MD [address] [place] [phone] Insurance Assigned Provider 01/20/25 documented as of this encounter Additional Source Comments The information contained in this document represents components of the legal health record. It is not the complete legal health record.[facility]
--- OUTSIDE RECORDS SUMMARY | 2025-02-12 12:30 | XMS_ITS | Encounter Summary ---
Author Organization [facility] Address [address] [place] [address] Phone Care Team Providers Care Dental Lab Technician Name Role Phone Jn Cardoza MD Unavailable Denys Henriquez MD Unavailable Antoine Segura PA-C Primary Care Provider [phone] Rhett Cortez MD Unavailable Reason for Visit * Auth/Cert (Routine) Specialty Diagnoses / Procedures Referred By Dary smith Referred To Contact Referral ID Status Reason Start Date Expiration Date Visits Re quested Visits Authorized [id number] 1 1 Encounter Details Date Type Department Care Team (Late st Contact Info) Description 02/12/2025 12:30 PM EDT Home Care Visit [facility] [address] [place] [address] Shakira Hand, HUA [address] [place] [address] [email or web address] SN OASIS RESUMPTION OF CARE (VERONIKA) Social [...] high school, GED, job training, learning the Beninese language, technical skills, or developing parenting skills)? [...] 1:00 AM EDT Home Care Visit [facility] [address] [place] [address] Shakira Hand, HUA [address] [place] [address] [email or web address] 03/08/2025 1:00 AM EDT Home Care Visit [facility] [address] [place] [address] Shakira Hand, HUA [address] [place] [address] [email or web address] 03/15/2025 Home Care Visit [facility] [address] [place] [address] Shakira Hand, HUA [address] [place] [address] [email or web address] 03/22/2025 1:00 AM EDT Home Care Visit [facility] [address] [place] [phone] Shakira Hand RN [address] [place] [address] [email or web address] 03/28/2025 9:40 AM EDT Office Visit [facility] [place] [facility] 40 [place] [address] Antione Segura PA-C 40 [place] [address] [email or web address] 03/29/2025 2:00 AM EDT Home Care Visit [facility] [address] [place] [phone] Shakira Hand RN [address] [place] [address] [email or web address] 04/05/2025 2:00 AM EDT Home Care Visit [facility] [address] [place] [phone] Shakira Hand RN [address] [place] [address] [email or web address] 04/12/2025 1:30 AM EDT Home Care Visit [facility] [address] [place] [phone] Shakira Hand RN [address] [place] [address] [email or web address] 04/19/2025 12:30 AM EST Home Care Visit [facility] [address] [place] [phone] Shakira Hand RN [address] [place] [address] [email or web address] 04/25/2025 Appointment [facility] [address] [place] [phone] Shakira Hand RN [address] [place] [address] 06/25/2025 9:30 AM EST Telemedicine [facility] Neurology 22 [place] [address] Jn Cardoza MD 22 [facility], 2nd [place] [address] [email or web address] documented as of this encounter Visit Diagnoses Not on filedocumented in this encounter Additional Health Concerns Assessment Noted Time PHQ-9 Depression Total Score: 15 025 9:44 AM EDT PHQ-2 Depression Total Score: 4 02/01/20 25 9:44 AM EDT documented as of this encounter Home Health Visit - Care Plan Visit Details Visit Type -SN OASIS RESUMPT ION OF CARE Discipline -Correction Problems Problem Description Start Date Status Goals Interve ntions HH - Medication Management Disciplines: All Active Home Health Disciplines, Correction 12/27/2024 Active 1 goal linked to scheduled/document [...] scheduled/document ed in this visit HH - Resumption of Care Disciplines: Correction 02/12/2025 Active - 1 problem intervention scheduled/document ed in this visit Goals Goal [...] PREDNISONE TAPER. WILL BE FOLLOWING UP HER PATHOLOGICAL TECHNICIAN WITHN TH ENEXT COUPLE WEEKS AND PCP THIS THURSDAY Instruction Provided to: patient Response to Instruction/Teaching: [...] home/community discharge from homecare Completed HH - Resumption of care Problem:HH - Resumption of Care Scheduled documented in this encounter Care Teams Dental Lab Technician Relationship Specialty Start Date End Date Antione Segura PA-C [address] [place] [address] PCP - General Physician Forensic Economist 10/12/24 Jn Cardoza MD [address] [place] [address], 2nd [place] [address] Neurology 02/03/24 Denys Henriquez MD [address] [place] [address] [place] [address] Pulmonary Disease 02/03/24 Rhett Cortez MD [address] [place] [address] [email or web address] Insurance Assigned Provider 01/20/25 documented as of this encounter Additional Source Comments The information contained in this document represents components of the legal health record. It is not the complete legal health record.[facility]
--- OUTSIDE RECORDS SUMMARY | 2025-02-23 11:30 | XMS_ITS | Encounter Summary ---
Author Organization [facility] Address [address] [place] [address] Phone Care Team Providers Care Relationship Consultant Name Role Phone Jn Cardoza MD Unavailable Denys Henriquez MD Unavailable Antione Segura PA-C Primary Care Provider Rhett Cortez MD Unavailable Reason for Visit * Auth/Cert (Routine) Specialty Diagnoses / Procedures Referred By Dary smith Referred To Contact Referral ID Status Reason Start Date Expiration Date Visits Re quested Visits Authorized [id number] 1 1 Encounter Details Date Type Department Care Team (Late st Contact Info) Description 02/23/2025 11:30 AM EDT Home Care Visit [facility] [address] [place] [address] Shakira Hand, HUA [address] [place], [place] [phone] [email or web address] SN OASIS RECERTIFICATION/FUP Social History Tobacco Use Types Packs/Day Years [...] Reading Time Taken Comments Blood Pressure 152/78 02/23/2025 12:05 PM EDT Pulse 80 02/23/2025 12:05 PM EDT Temperature 36.1 C (96.9 F) 02/23/2025 12:05 PM EDT Respiratory Rate - - Oxygen Saturation 93% 02/23/2025 12:05 PM EDT Inhaled Oxygen Concentration - - Weight - - Height - - Body Mass Index - - documented in this encounter Plan of Treatment Upcoming Encounters Date Type Department Care Team (Late st Contact Info) Description 03/01/2025 1:00 AM EDT Home Care Visit [facility] [address] [place] [address] Shakira Hand, HUA [address] [place] [address] 03/08/2025 1:00 AM EDT Home Care Visit [facility] [address] [place], [place] [phone] Shakira Hand, HUA [address] [place] [address] 03/15/2025 Home Care Visit [facility] [address] [place] [address] Shakira Hand, HUA [address] [place] [address] 03/22/2025 1:00 AM EDT Home Care Visit [facility] [address] [place] [phone] Shakira Hand RN [address] [place] [address] 03/28/2025 9:40 AM EDT Office Visit [facility] [address] [place] [address] Antione Segura PA-C [address] [place] [address] 03/29/2025 2:00 AM EDT Home Care Visit [facility] [address] [place] [phone] Shakira Hand RN [address] [place] [address] 04/05/2025 2:00 AM EDT Home Care Visit [facility] [address] [place] [phone] Shakira Hand RN [address] [place] [address] 04/12/2025 1:30 AM EDT Home Care Visit [facility] [address] [place] [phone] Shakira Hand RN [address] [place] [address] 04/19/2025 12:30 AM EST Home Care Visit [facility] [address] [place] [phone] Shakira Hand RN [address] [place] [address] 04/25/2025 Appointment [facility] [address] [place] [phone] Shakira Hand RN [address] [place] [address] 06/25/2025 9:30 AM EST Telemedicine [facility] Neurology [address] [place] [address] Jn Cardoza MD 22 [facility], 2nd [place] [address] [email or web address] documented as of this encounter Visit Diagnoses Not on filedocumented in this encounter Additional Health Concerns Assessment Noted Time PHQ-9 Depression Total Score: 15 025 9:44 AM EDT PHQ-2 Depression Total Score: 4 02/01/20 25 9:44 AM EDT documented as of this encounter Home Health Visit - Care Plan Visit Details Visit Type -SN OASIS RECERTI FICATION/FUP Discipline -Fpc Problems Problem Description Start Date Status Goals Interve ntions HH - Respiratory Status - Impaired Disciplines: All Active Home Health Disciplines 12/27/2024 Active 1 goal linked to scheduled/documen subhash intervention 3 goal interventions scheduled/document ed in this visit HH - Medication Management Disciplines: All Active Home Health Disciplines, Fpc 12/27/2024 Active 1 goal linked to scheduled/documen [...] visit HH - Resumption of Care Disciplines: Fpc 02/12/2025 Resolved on 02/23/2025 - 1 problem intervention scheduled/document ed in this visit Goals Goal Associated Problem Outcome Goal Met? Visit Notes HH - Demonstrate/verbalize causes, impacts, and management [...] Actual or Risk of No HH - Achieve care [...] Problem/Goal Status Variance Visit Notes HH - Oxygen Therapy Description: Dose, route, and frequency details are on the medication list. Problem:HH - Respiratory Status - Impaired Goal:HH - Demonstrate/verbaliz e causes, impacts, and management of respiratory condition resulting in adequate oxygenation and ventilation Completed HH - I/E use of respiratory care equipment: Description: CPAP/BiPAP, nebulizer and oxygen Problem:HH - Respiratory Status - Impaired Goal:HH - Demonstrate/verbaliz e causes, impacts, and management of respiratory condition resulting in adequate oxygenation and ventilation Completed HH - I/E respiratory disease management Description: breathing techniques, energy conservation, positioning and self-monitoring Problem:HH - Respiratory Status - Impaired Goal:HH - Demonstrate/verbaliz e causes, impacts, and management of respiratory condition resulting in adequate oxygenation and ventilation Completed HH - I/E medication management: administration, purpose, [...] PAIN. MULTIPLE HOSPITALIZATIONS DUE TO COPD EXACERBATION. PT SAW HER SUPPORT SERVICES MANAGER DR HENRIQUEZ ON WED. REPORTS SHE IS ALLOWED TO BE OFF O2 AT REST IF O2 LEVELS ABOVE 90%. CONTINUES ON PREDNISON TAPER. WILL BE STARTED BY HER PULMOLOGIST ON A MANTENIANCE DOSE AFTER TAPER IS COMPLETE. PT A/OX4, OCCASIONALLY FORGETFUL. LIVES WITH SUPPORTIVE . ON O2 2L TODAY. PERFORMS DUONEBS DAILY. TEACH/EDU ON SPIROMETER USE AND HOW FREQUENT. 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 VS WNL, LS DIMINISHED, NO EDEMA. COUGH HAS IMPROVED. DIZZINESS IMPROVED. NO CHEST PAIN. HAS NOT FALLEN. HER MEDICATIONS HAD BEEN SET UP FOR A MONTH AHEAD AND STILL HAS 2 WEEKS WORTH OF MEDICATIONS ORGANIZED. O2 93% WITHOUT OXYGEN AFTER 10-15MIN. SOME INCRASE RESP EFFORT NOTED. Instruction Provided to: patient Response to Instruction/Teaching: Is partially able to teach back topics as evidenced by malvin willis. Plan for Next Visit Specific Focus & Education Needed: resp assess, copd manageement, cvp New Orders: Updated Discharge Plan: - I/E [...] infection prevention measures and s/s of infection Problem:HH - Infection - Actual or Risk of Goal:HH - Patient will have no new infection; any new infection that occurs will be identified and treated promptly; existing infection will resolve without complication Completed HH - Assess vital signs, pulse [...] discharge from homecare Completed HH - I/E pain management Problem:HH - Pain Goal:HH - Frequency of pain interfering with patient's activity or movement will improve with activity or movement by discharge. Completed HH - Resumption of care Problem:HH - Resumption of Care Completed documented in this encounter Care Teams Relationship Consultant Relationship Specialty Start Date End Date Antione Segura PA-C [address] [place] [email or web address] PCP - General Physician Territory Sales Executive 10/12/24 Jn Cardoza MD [address] [place] [address], [address] [place] [address] Neurology 02/03/24 Denys Henriquez MD [address] [place] [address] [place] [address] Pulmonary Disease 02/03/24 Rhett Cortez MD [address] [place] [address] [email or web address] Insurance Assigned Provider 01/20/25 documented as of this encounter Additional Source Comments The information contained in this document represents components of the legal health record. It is not the complete legal health record.[facility]
--- NOTE | 2025-02-26 14:49 | MHC.OFFVIS ---
Vital Signs 02/26/25 14:54 Height 5 ft Weight 205 lb BMI 40.0 BP 120/72 Blood Pressure Location Lt brachial Position Sitting Pulse 83 Pulse Source Pulse Oximeter Intake Visit Reasons: f/u [facility] [place] Intake Note: [place] [place] Circulation Director Required: No Accompanied by: Self / Same As Patient Allergies Iodinated Contrast Media (IV CONTRAST) Allergy (Intermediate, Verified 02/21/25 09:34) HIVES latex (LATEX) Allergy (Unknown, Verified 02/21/25 09:34) RASH adhesive tape Allergy (Verified 02/21/25 09:34) Rash morphine (MORPHINE) Adverse Reaction (Unknown, Verified 02/21/25 09:34) VOMITING Medication List - Last Reconciled 02/26/25 by Norah Worrell NP-C albuterol sulfate 90 mcg/actuation 2 puffs inhalation Q4H PRN aripiprazole (Abilify) 5 mg PO DAILY@0600 aspirin 81 mg PO DAILY@1999 atorvastatin 80 mg PO DAILY@1999 baclofen 20 mg PO TID@0500,1199,1999 benzonatate 100 mg PO TID PRN jyvjbfihrc-eeknhepm-ympjzffzrz 160-9-4.8 mcg/actuation (Breztri Aerosphere) 2 inhalations inhalation BID@0600,1800 gxlobkfjwo-mcfycpbgdwtjb-geng 50-325-40 mg 1 tab PO DAILY MRX1 PRN calcium carbonate-vitamin D3 600 mg-5 mcg (200 unit) 1 tab PO DAILY@1999 duloxetine 60 mg PO BID@599,1999 gabapentin 1,200 mg PO TID@0600,1199,1999 hyoscyamine sulfate 0.25 mg PO Q6H PRN ipratropium-albuterol 0.5 mg-3 mg(2.5 mg base)/3 mL 3 mL inhalation Q4H PRN lorazepam 0.5 mg PO DAILY PRN lorazepam 0.5 mg PO BEDTIME@1999 nebulizer and compressor As directed omeprazole 20 mg PO DAILY@0630 oxcarbazepine 300 mg PO BID@0600,1800 oxycodone 5 mg PO BID PRN Oxygen Home Use As directed polyethylene glycol 3350 (Miralax) 17 grams PO DAILY PRN prazosin 2 mg PO DAILY@1999 prednisone See Taper mg PO DAILY prednisone 40 mg daily x 4 days then 30 mg daily x 4 days then 20 mg daily x 4 days then 10 mg daily x 4 days then 5 mg daily x 4 days prednisone 5 mg PO DAILY 30 days roflumilast (Daliresp) 500 mcg PO DAILY@0600 valsartan 40 mg See Protocol PO DAILY@0600 verapamil 120 mg PO BID@0600,1800 HPI HPI f/u [facility] [place]: Details: Zulma is a 60-year-old female past medical history of morbid obesity, hypertension, hyperlipidemia, COPD with chronic hypoxic respiratory failure, mild aortic stenosis, newer diastolic heart failure who has been [place] [facility] since last visit in June with COPD exacerbation, acute on chronic respiratory failure. She now presents for follow-up after recent echocardiogram. Today she reports that she has been doing generally well since her last hospital discharge 02/09/2025. She has chronic shortness of breath with activity and wears her oxygen continually. She has no chest discomfort at rest or with activity. No heart palpitations, lightheadedness, presyncope, syncope, falls, leg edema. She monitors her blood pressure at home and holds her verapamil if the systolic reading is less than 120. She tells me she had been on Lasix for short period of time then developed hypotension. She is concerned about the newer diagnosis of Congestive heart failure. Her significant other is present. [facility] Medical History Morbid obesity Pulmonary nodules Diastolic heart failure Leukocytosis Chronic lung disease Chronic lung disease Hypoxia Panic disorder Hypertension Chronic hypercapnic respiratory failure Aortic stenosis Obesity (BMI 30-39.9) Asthma Acute exacerbation of chronic obstructive pulmonary disease Chronic lung disease Hypogammaglobulinemia Smoker JUANITO (obstructive sleep apnea) Allergies Elevated troponin COPD (chronic obstructive pulmonary disease) Trigeminal neuralgia Mixed hyperlipidemia Peripheral neuropathy Tobacco use disorder Mood disorder Surgical History History of esophagogastroduodenoscopy (EGD) History of colonoscopy History of lumbar discectomy History of tubal ligation History of excision of mass History of shoulder surgery Social History Household Members: Spouse Household Members Other:: dog Housing: Condominium Do you presently have visiting nurse or other home services: Yes Alcohol intake: never Comment: rings appropriately Patient Tobacco Use Status: Former Tobacco user Tobacco use type: Cigarette Cigarette Packs Per Day: 4 Cigarettes Per Day: 80.0 Years Smoked: 40 e-Cigarette/Vaping Use: Never Used Second Hand Smoke Exposure: No Substance Use Type: Marijuana Advance Directives Date on File: 03/09/23 service: No Review of Systems Const All systems reviewed & are unremarkable except as noted in HPI and below Denies chills, Denies fatigue, Denies fever(s), Denies frequent falls, Denies weakness, Denies weight gain and Denies weight loss ENT Denies dizziness Card Denies chest pain, Denies chest pain at rest, Denies chest pain with activity, Denies leg edema, Denies lightheadedness, Denies palpitations, Reports dyspnea, Reports dyspnea on exertion and Reports orthopnea Resp Denies cough, Reports dyspnea and Reports dyspnea on exertion GI Denies hematochezia Musc Reports abnormal gait (using wheelchair today), Denies muscle weakness, Denies numbness, Denies radiating pain into limb and Denies tingling Neuro Reports abnormal gait (using wheelchair today), Denies dizziness, Denies frequent falls, Denies numbness, Denies tingling and Denies weakness Endo Denies fatigue and Denies palpitations Physical Exam Vital Signs: Last Vital Signs Pulse 83 02/26/25 14:54 BP 120/72 02/26/25 14:54 BMI result Body Mass Index 40.0 Const General: cooperative, comfortable and no acute distress Orientation/consciousness: patient oriented x3 Neck Neck: Yes normal visual inspection Resp Other: lungs diminished bilaterally Effort & Inspection: normal respiratory effort Auscultation: clear to auscultation bilaterally, no rales, no rhonchi and no wheezes Cardio Rate: regular rate Rhythm: regular rhythm Heart sounds: S1 normal heart sound present, S2 normal heart sound present, no gallops, Murmur heart sound present (2/6 systolic murmur right sternal border) and no rubs Neuro General: patient oriented x3 Extrem General: Yes normal to inspection, No no pedal edema and No calf tenderness Psych Appearance: grossly normal Mental Status: mental status grossly normal Speech and movement: Normal speech and movement present Assessment & Plan Assessment & Plan (1) Diastolic heart failure: Code(s): I50.30 - Unspecified diastolic (congestive) heart failure Category: Medical Qualifiers: Heart failure chronicity: chronic Qualified Code(s): I50.32 - Chronic diastolic (congestive) heart failure Plan: Diastolic heart failure as identified by ? PCP in November and put on Lasix. Hospital admission 2 days later for COPD exacerbation, low blood pressures and treated with IV fluids and appropriate COPD management. Echocardiogram 12/01/2024 showed EF greater than 70%, impaired filling pattern, moderate aortic stenosis, small pericardial effusion. BNP was not elevated at that time Lasix was not continued at time of discharge. She has had several more hospital admission since that time without finding of Congestive heart failure. She did have repeat echocardiogram done on 02/06/2025 which again showed EF greater than 70%, this time diastolic function is normal for age, mild aortic stenosis. Reviewed with her that she may have had possible diastolic dysfunction with mild Congestive heart failure in the setting of COPD exacerbation. Spent time reviewing echocardiogram results and that her heart is pumping strong. She is not fluid overloaded on examination. No indication for diuretic use at this time. Signs and symptoms of heart failure reviewed with her. Cardiology follow-up in 3 months, sooner if needed. (2) Chronic lung disease: Code(s): J98.4 - Other disorders of lung Category: Medical Plan: COPD, hypoxic respiratory failure followed by Dr. Henriquez. Dominick on examination today. (3) Acute hypoxemic respiratory failure: Code(s): J96.01 - Acute respiratory failure with hypoxia Category: Medical Plan: As above. (4) Aortic stenosis: Code(s): I35.0 - Nonrheumatic aortic (valve) stenosis Category: Medical Qualifiers: Cardiac valve disease etiology: etiology unspecified Qualified Code(s): I35.0 - Nonrheumatic aortic (valve) stenosis Plan: Echocardiogram from November shows moderate aortic stenosis however repeat echocardiogram 02/06/2025 shows mild aortic stenosis. Will plan for repeat echocardiogram in 1 year. (5) Hypertension: Code(s): I10 - Essential (primary) hypertension Category: Medical Qualifiers: Hypertension type: primary hypertension Qualified Code(s): I10 - Essential (primary) hypertension Plan: Blood pressure goal less than 130/80, well controlled at this time. Continue verapamil, valsartan. She does close home blood pressure monitoring. (6) Hospital discharge follow-up: Code(s): Z09 - Encounter for follow-up examination after completed treatment for conditions other than malignant neoplasm Category: Medical Plan: Discharge summaries reviewed, multiple hospital admissions Plan I discussed with the patient the management of her chronic conditions, including the importance of monitoring fluid retention in CHF and the need for regular follow-ups. We reviewed the role of diuretics in managing diastolic dysfunction and the necessity of coordinating care with pulmonary specialists for COPD management. I emphasized the importance of annual echocardiograms to monitor mild aortic stenosis and reassured her that her heart murmur is currently asymptomatic. Orders: Orders CA echo transthoracic complete 11 Months I35.0 - Nonrheumatic aortic (valve) stenosis, I50.32 - Chronic diastolic (congestive) heart failure Patient Instructions: - Monitor for signs of fluid retention, such as unexplained weight gain or leg swelling. - Follow up with your healthcare provider in three months or sooner if symptoms worsen. - Continue taking medications as prescribed and discuss any concerns with your doctor. - Plan for echocardiogram in one year to monitor aortic stenosis. Patient was informed and verbally consented to the use of an ambient scribe for clinic note documentation during this visit. Visit time spent on chart review, interview, assessment, orders, documentation. Coding Level of Care Code Est Pt Level 4 (06774) Complex EM visit Add On G2211 Diagnoses Chronic diastolic heart failure I50.32 Heart failure chronicity: chronic Chronic lung disease J98.4 Acute hypoxemic respiratory failure J96.01 Aortic valve stenosis, etiology of cardiac valve disease unspecified I35.0 Cardiac valve disease etiology: etiology unspecified Primary hypertension I10 Hypertension type: primary hypertension Hospital discharge follow-up Z09 Time Spent (min) 36
[2025-02-26 14:54] VITALS: BP 120/72; PULSE 83; BMI 40.0
--- OUTSIDE RECORDS SUMMARY | 2025-02-26 20:09 | XMS_ITS | Encounter Summary ---
Author Organization [facility] Address [address] [place] [address] Phone Care Team Providers Care Last Waxer Name Role Phone Lang Germain MD Unavailable [phone] Jennifer Duke QUALIFIED CRAFT WORKER ELECTRICIAN Primary Care Provider Sirisha Huertas INDUSTRIAL SERVICER Primary Care Provider Jn Cardoza MD Unavailable Denys Henriquez MD Unavailable Liyah Patterson MD Unavailable Liyah Patterson MD Primary Care Provider [phone] Antione Segura PA-C Primary Care Provider Rhett Cortez MD Unavailable Encounter Details Date Type Department Care Team (Late st Contact Info) Description 02/25/2023 Procedure Pass [facility], [address] [address] Social History Tobacco Use Types Packs/Day Years Used Date Smoking Tobacco: Every Day Cigarettes 0.8 43.3 Started: 11/25/1981 Passive Smoke Exposure: Never Smokeless [...] 03/01/2025 1:00 AM EDT Home Care Visit [facility] [address] [place] [phone] Shakira Hand RN [address] [place] [address] [email or web address] 03/08/2025 1:00 AM EDT [facility] [address] [place] [phone] Shakira Hand RN [address] [place] [address] 03/15/2025 Home Care Visit [facility] [address] [place] [phone] Shakira Hand RN [address] [place] [address] 03/22/2025 1:00 AM EDT Home [facility] Visit [facility] [address] [place] [phone] Shakira Hand RN [address] [place] [address] 03/28/2025 9:40 AM EDT Office Visit [facility] [place] [facility] [address] [place] [address] Antione Segura PA-C 40 [place] [address] 03/29/2025 2:00 AM EDT Home Care Visit [facility] [address] [place] [phone] Shakira Hand RN [address] [place] [address] 04/05/2025 2:00 AM EDT Home Care Visit [facility] [address] [place] [phone] Shakira Hand RN [address] [place] [address] 04/12/2025 1:30 AM EDT Home Care Visit [facility] [address] [place] [phone] Shakira Hand RN [address] [place] [address] 04/19/2025 12:30 AM EST Home Care Visit [facility] [address] [place] [phone] Shakira Hand RN [address] [place] [address] 04/25/2025 Appointment [facility] [address] [place] [phone] Shakira Hand RN [address] [place] [address] 06/25/2025 9:30 AM EST Telemedicine [facility] Neurology [address] [place] [phone] Jn Cardoza MD [address] [facility], 2nd [place] [address] documented as of this encounter Visit Diagnoses Not on filedocumented in this encounter Additional Health Concerns Assessment Noted Time PHQ-9 Depression Total Score: 21 023 12:35 PM EDT PHQ-2 Depression Total Score: 2 02/19/20 23 6:55 PM EDT documented as of this encounter Care Teams Last Waxer Relationship Specialty Start Date End Date Jennifer Duke, QUALIFIED CRAFT WORKER ELECTRICIAN [address] [place] [address] [email or web address] PCP - General Family Medicine 01/31/20 06/22/23 Sirisha Huertas FNP [address] [place] [address] [email or web address] PCP - General Nurse Practitioner 06/23/23 08/03/24 Liyah Patterson MD [address] [place] [address] [email or web address] PCP - General Family Medicine 08/04/24 10/11/24 Antione Segura PA-C [address] [place] [address] [email or web address] PCP - General Physician Debone Supervisor 10/12/24 Lang Germain MD [address] [place] [address] [email or web address] Insurance Assigned Provider 09/18/23 02/19/24 Jn Cardoza MD [address] [place] [address], 2nd [place] [address] [email or web address] Neurology 02/03/24 Denys Henriquez MD [address] [place] [address] [place] [address] Pulmonary Disease 02/03/24 Liyah Patterson MD [address] [place] [address] [email or web address] Insurance Assigned Provider 02/19/24 01/20/25 Rhett Cortez MD [address] [place] [address] [email or web address] Insurance Assigned Provider 01/20/25 documented as of this encounter Additional Source Comments The information contained in this document represents components of the legal health record. It is not the complete legal health record.[facility]
--- OUTSIDE RECORDS SUMMARY | 2025-02-26 20:09 | XMS_ITS | Encounter Summary ---
Author Organization [facility] Address [address] [place] [address] [place] [phone] Phone Care Team Providers Care School Bus Dispatcher Name Role Phone Lang Germain MD Unavailable Jennifer Duke TELEVISION CAMERAMAN Primary Care Provider [phone] Sirisha Huertas OTR DRIVER Primary Care Provider Jn Cardoza MD Unavailable Denys Henriquez MD Unavailable Liyah Patterson MD Unavailable Liyah Patterson MD Primary Care Provider [phone] Antione Segura PA-C Primary Care Provider [phone] Rhett Cortez MD Unavailable Encounter Details Date Type Department Care Team (Late st Contact Info) Description 11/11/2021 Transcribe Orders [facility] [address] [place] [address] Jennifer Duke, TELEVISION CAMERAMAN [address] [facility] [address] [place] [address] Social History Tobacco Use Types Packs/Day Years Used Date Smoking Tobacco: Every Day Cigarettes 1 43.3 Started: 11/25/1981 Smokeless Tobacco: Never Alcohol Use [...] [facility] Visit [facility] [address] [place] [phone] Shakira Hand RN [address] [place] [address] [email or web address] 03/08/2025 1:00 AM EDT Home Care Visit [facility] [address] [place] [phone] Shakira Hand RN [address] [place] [address] [email or web address] 03/15/2025 Home Care Visit [facility] [address] [place] [phone] Shakira Hand RN [address] [place] [address] [email or web address] 03/22/2025 1:00 AM EDT Home Care Visit [facility] [address] [place] [phone] Shakira Hand RN [address] [place] [address] [email or web address] 03/28/2025 9:40 AM EDT Office Visit [facility] [place] [facility] 40 [place] [address] Antione Segura PA-C 40 [place] [address] [email or web address] 03/29/2025 2:00 AM EDT Home [facility] [address] [place] [phone] Shakira Hand RN [address] [place] [address] [email or web address] 04/05/2025 2:00 AM EDT Home Care Visit [facility] [address] [place] [phone] Shakira Hand RN [address] [place] [address] 04/12/2025 1:30 AM EDT Home Care Visit [facility] [address] [place] [phone] Shakira Hand RN [address] [place] [address] [email or web address] 04/19/2025 12:30 AM EST Home Care Visit [facility] [address] [place] [phone] Shakira Hand RN [address] [place] [address] [email or web address] 04/25/2025 Appointment [facility] [address] [place] [phone] Sahkira Hand RN [address] [place] [address] [email or web address] 06/25/2025 9:30 AM EST Telemedicine [facility] Neurology [address] [place] [address] Jn Cardoza MD [address] [place] [phone] [email or web address] documented as of this encounter Visit Diagnoses Not on filedocumented in this encounter Additional Health Concerns Assessment Noted Time PHQ-2 Depression Total Score: 0 05/25/20 19 9:02 AM EST documented as of this encounter Care Teams School Bus Dispatcher Relationship Specialty Start Date End Date Jennifer Duke TELEVISION CAMERAMAN [address] [place] [address] [email or web address] PCP - General Family Medicine 01/31/20 06/22/23 Sirisha Huertas FNP [address] [place] [address] [email or web address] PCP - General Nurse Practitioner 06/23/23 08/03/24 Liyah Patterson MD [address] [place] [address] [email or web address] PCP - General Family Medicine 08/04/24 10/11/24 Antione Segura PA-C [address] [place] [email or web address] PCP - General Physician Alarm Mechanic 10/12/24 Lang Germain MD [address] [place] [address] [email or web address] Insurance Assigned Provider 09/18/23 02/19/24 Jn Cardoza MD [address] [place] [address], 2[address] [place] [address] Neurology 02/03/24 Denys Henriquez MD [address] [place] [address] [place] [address] Pulmonary Disease 02/03/24 Liyah Patterson MD [address] [address] [email or web address] Insurance Assigned Provider 02/19/24 01/20/25 Rhett Cortez MD [address] [place] [phone] Insurance Assigned Provider 01/20/25 documented as of this encounter Additional Source Comments The information contained in this document represents components of the legal health record. It is not the complete legal health record.[facility]
--- OUTSIDE RECORDS SUMMARY | 2025-02-26 20:09 | XMS_ITS | Encounter Summary ---
Author Organization [facility] Address [address] [place] [phone] Phone Care Team Providers Care Inlayer Silver Name Role Phone Jn Cardoza MD Unavailable Denys Henriquez MD Unavailable Antione Segura PA-C Primary Care Provider Rhett Cortez MD Unavailable Encounter Details Date Type Department Care Team (Late st Contact Info) Description 02/14/2025 Orders Only [facility] Internal Medicine 40 [place] [address] Provider, MD Omar [address] [place] [address] Social History Tobacco Use Types Packs/Day [...] high school, GED, job training, learning the Malagasy language, technical skills, or developing parenting skills)? [...] Care Visit [facility] [address] [place] [phone] Shakira Hand RN [address] [place] [address] 03/08/2025 1:00 AM EDT Home Care Visit [facility] [address] [place] [phone] Shakira Hand RN [address] [place] [address] 03/15/2025 Home Care Visit [facility] [address] [place] [phone] Shakira Hand RN [address] [place] [address] 03/22/2025 1:00 AM EDT Home Care Visit [facility] [address] [place] [phone] Shakira Hand RN [address] [place] [address] 03/28/2025 9:40 AM EDT Office Visit [facility] [place] [facility] 40 [place], [place] [phone] Antione Segura PA-C [address] [place], [place] [phone] 03/29/2025 2:00 AM EDT Home Care Visit [facility] [address] [place] [phone] Shakira Hand RN [address] [place] [address] 04/05/2025 2:00 AM EDT Home Care Visit [facility] [address] [place] [phone] Shakira Hand RN [address] [place] [address] 04/12/2025 1:30 AM EDT Home Care Visit [facility] [address] [place] [phone] Shakira Hand RN [address] [place] [place] [address] 04/19/2025 12:30 AM EST Home Care Visit [facility] [address] [place] [phone] Shakira Hand RN [address] [place] [address] 04/25/2025 Appointment [facility] [address] [place] [phone] Shakira Hand RN [address] [place] [place] [address] 06/25/2025 9:30 AM EST Telemedicine [facility] Neurology [address] [place] [address] Jn Cardoza MD [address] [place] [address] documented as of this encounter Procedures Procedure [...] documented as of this encounter Care Teams Inlayer Silver Relationship Specialty Start Date End Date Antione Segura PA-C [address] [place] [address] PCP - General Physician Multiple Coil Winder 10/12/24 Jn Cardoza MD [address] [address] Neurology 02/03/24 Denys Henriquez MD [address] [place] [address] [place] [address] Pulmonary Disease 02/03/24 Rhett Cortez MD [address] [place] [address] Insurance Assigned Provider 01/20/25 documented as of this encounter Additional Source Comments The information contained in this document represents components of the legal health record. It is not the complete legal health record.[facility]
--- OUTSIDE RECORDS SUMMARY | 2025-02-26 20:09 | XMS_ITS | Encounter Summary ---
Author Organization [facility] Address [address] [place] [address] Care Team Providers Care Secondary Teacher Name Role Phone Antione Segura Primary Care Provider [phone] Reason for Visit * Reason Onset Date Comments PAC Order Request 01/29/2025 Dr. Bautista 01/29/2025 Encounter Details Date Type Department Care Team (Late st Contact Info) Description 01/29/2025 Telephone [facility] [address] [place] [address] [phone] Breast Worker: Federico Hill Telephone Intake, Staff PAC Order [...] 2:23 PM EDT Spoke to Pulmonary at [facility] regarding PFTs. They stated they can accept order fromDr. Bautista. Order faxed to [phone]. * Telephone Encounter - Amalia Paredes RN - 01/29/2025 1:38 PM EDT Spoke to patient. She stated not transferring care but would like to have the PFTs done closer to her, as it is a two hour [address] to [facility]. She is on portable oxygen and concerned that she would not have enough for such a long day of travel and testing. * Telephone Encounter - Diana Naeem - 01/29/2025 12:10 PM EDT Pt of Dr. Bautista would like PFT order faxed over to [facility] closer to her home, please advise pt # [phone] documented in this encounter Plan of Treatment Upcoming Encounters Date Type Department Care Team (Late st Contact Info) Description 05/30/2025 2:00 PM EST Follow-Up [facility] [address] [place] [phone] Breast Worker: Remy Santos MD [address] [place] [phone] documented as of this encounter Visit Diagnoses Not on filedocumented in this encounter Care Teams Secondary Teacher Relationship Specialty Start Date End Date Antione Segura PA [address] [place] [address] PCP - General Emergency Medicine 01/10/25 documented as of this encounter
--- OUTSIDE RECORDS SUMMARY | 2025-02-26 20:09 | XMS_ITS | Encounter Summary ---
Author Organization [facility] Address [address] [address] Phone Care Team Providers Care Mortuary Technician Name Role Phone Jn Cardoza MD Unavailable Denys Henriquez MD Unavailable Liyah Patterson MD Unavailable Antione Segura-C Primary Care Provider Rhett Cortez MD Unavailable Encounter Details Date Type Department Care Team (Late st Contact Info) Description 12/06/2024 Home Health Resumption of Care Planning [facility] [address] [place] [phone] Diana Torres, RN [address] [place] [address] [email or web address] Social History Tobacco Use Types [...] Care Visit [facility] [address] [place] [phone] Shakira Hand RN [address] [place] [address] 03/08/2025 1:00 AM EDT Home [facility] [address] [place] [phone] Shakira Hand RN [address] [place] [address] 03/15/2025 Home [facility] Visit [facility] [address] [place] [phone] Shakira Hand RN [address] [place] [address] 03/22/2025 1:00 AM EDT Home [facility] Visit [facility] [address] [place] [phone] Shakira Hand RN [address] [place] [address] 03/28/2025 9:40 AM EDT Office Visit [facility] [place] [facility] [address] [place], [place] [phone] Antione Segura PA-C 40 [place], [place] [phone] 03/29/2025 2:00 AM EDT Home Care Visit [facility] [address] [place] [phone] Shakira Hand, HUA [address] [place] [address] 04/05/2025 2:00 AM EDT Home Care Visit [facility] [address] [place] [phone] Shakira Hand RN [address] [place] [address] 04/12/2025 1:30 AM EDT Home Care Visit [facility] [address] [place] [phone] Shakira Hand RN [address] [place] [address] 04/19/2025 12:30 AM EST Home Care Visit [facility] [address] [place] [phone] Shakira Hand, HUA [address] [place] [address] 04/25/2025 Appointment [facility] [address] [place] [phone] Shakira Hand RN [address] [place] [address] 06/25/2025 9:30 AM EST Telemedicine [facility] Neurology [address] [place] [address] Jn aCrdoza MD 22 [facility], 2nd [place] [address] documented as of this encounter Visit Diagnoses Not on filedocumented in this encounter Additional Health Concerns Assessment Noted Time PHQ-9 Depression Total Score: 21 025 12:31 PM EDT PHQ-2 Depression Total Score: 6 10/13/19 25 12:31 PM EDT documented as of this encounter Care Teams Mortuary Technician Relationship Specialty Start Date End Date Antione Segura PA-C [address] [place] [address] PCP - General Physician Sheet Metal Foreman 10/12/24 Jn Cardoza MD 22 [facility], 2nd [place] [address] Neurology 02/03/24 Denys Henriquez MD [address] [place] [address] [place] [address] Pulmonary Disease 02/03/24 Liyah Patterson MD 15 [facility] Subhash. [address] [place] [address] Insurance Assigned Provider 02/19/24 01/20/25 Rhett Cortez MD [address] [place] [address] Insurance Assigned Provider 01/20/25 documented as of this encounter Additional Source Comments The information contained in this document represents components of the legal health record. It is not the complete legal health record.[facility]
--- OUTSIDE RECORDS SUMMARY | 2025-02-26 20:09 | XMS_ITS | Encounter Summary ---
Author Organization [facility] Address [address] [address] Phone Care Team Providers Care Airway Traffic Controller Name Role Phone Jn Cardoza MD Unavailable Denys Henriquez MD Unavailable Liyah Patterson MD Unavailable Antione Segura-C Primary Care Provider Rhett Cortez MD Unavailable Encounter Details Date Type Department Care Team (Late st Contact Info) Description 01/09/2025 Home Health [facility] [address] [place] [phone] Koki Simons, HUA [address] [place] [address] [email or web address] Social History Tobacco Use Types Packs/Day Years [...] Home [facility] Visit [facility] [address] [place] [phone] Shakira Hand RN [address] [place] [address] [email or web address] 03/08/2025 1:00 AM EDT Home [facility] Visit [facility] [address] [place] [phone] Shakira Hand RN [address] [place] [address] 03/15/2025 Home Care Visit [facility] [address] [place] [phone] Shakira Hand RN [address] [place] [address] 03/22/2025 1:00 AM EDT Home Care Visit [facility] [address] [place] [phone] Shakira Hand RN [address] [place] [address] [email or web address] 03/28/2025 9:40 AM EDT [facility] Visit [facility] [place] [facility] 40 [place], [place] [phone] Antione Segura PA-C [address] [place], [place] [phone] 03/29/2025 2:00 AM EDT Home Care Visit [facility] [address] [place] [phone] Shakira Hand, HUA [address] [place] [address] 04/05/2025 2:00 AM EDT Home Care Visit [facility] [address] [place] [phone] Shakira Hand RN [address] [place] [address] 04/12/2025 1:30 AM EDT Home Care Visit [facility] [address] [place] [phone] Shakira Hand RN [address] [place] [address] 04/19/2025 12:30 AM EST Home Care Visit [facility] [address] [place] [phone] Shakira Hand, HUA [address] [place] [address] 04/25/2025 Appointment [facility] [address] [place] [phone] Shakira Hand RN [address] [place] [address] 06/25/2025 9:30 AM EST Telemedicine [facility] Neurology [address] [place] [address] Jn Cardoza MD [address] [place] [address], 2nd [place] [address] documented as of this encounter Visit Diagnoses Not on filedocumented in this encounter Additional Health Concerns Assessment Noted Time PHQ-9 Depression Total Score: 20 025 9:08 PM EDT PHQ-2 Depression Total Score: 6 12/28/19 25 9:08 PM EDT documented as of this encounter Care Teams Airway Traffic Controller Relationship Specialty Start Date End Date Antione Segura PA-C [address] [place] [address] [email or web address] PCP - General Physician Mosaic Tile Maker 10/12/24 Jn Cardoza MD 22 [facility], 2nd [place] [address] Neurology 02/03/24 Denys Henriquez MD [address] [place] [address] [place] [address] Pulmonary Disease 02/03/24 Liyah Patterson MD 15 [facility] Subhash. [address] [place] [address] [email or web address] Insurance Assigned Provider 02/19/24 01/20/25 Rhett Cortez MD 40 [place] [address] Insurance Assigned Provider 01/20/25 documented as of this encounter Additional Source Comments The information contained in this document represents components of the legal health record. It is not the complete legal health record.[facility]
--- OUTSIDE RECORDS SUMMARY | 2025-02-26 20:09 | XMS_ITS | Encounter Summary ---
Author Organization [facility] Address [address] [place] [address] Phone Care Team Providers Care Groundskeeping Maintenance Name Role Phone Lang Germain MD Unavailable Jennifer Duke PRESERVATIVE FILLER MACHINE OPERATOR Primary Care Provider Sirisha Huertas METAL PRECISION MACHINE ASSEMBLER Primary Care Provider Jn Cardoza MD Unavailable Denys Henriquez MD Unavailable Liyah Patterson MD Unavailable Liyah Patterson MD Primary Care Provider [phone] Antione Segura PA-C Primary Care Provider [phone] Rhett Cortez MD Unavailable Encounter Details Date Type Department Care Team (Late st Contact Info) Description 11/27/2021 Procedure Pass [facility], [address] [place] [address] Social History Tobacco Use Types Packs/Day Years [...] Care Visit [facility] [address] [place] [phone] Shakira Hand RN [address] [place] [address] [email or web address] 03/08/2025 1:00 AM EDT Home Care Visit [facility] [address] [place] [address] Shakira Hand RN [address] [place] [address] [email or web address] 03/15/2025 Home Care Visit [facility] [address] [place] [phone] Shakira Hand RN [address] [place] [address] [email or web address] 03/22/2025 1:00 AM EDT Home Care Visit [facility] [address] [place] [phone] Shakira Hand RN [address] [place] [address] 03/28/2025 9:40 AM EDT Office Visit [facility] 40 [place] [address] Antione Segura PA-C 40 [place] [address] [email or web address] 03/29/2025 2:00 AM EDT Home Care Visit [facility] [address] [place] [phone] Shakira Hand RN [address] [place] [address] [email or web address] 04/05/2025 2:00 AM EDT Home Care Visit [facility] [address] [place] [phone] Shakira Hand RN [address] [place] [address] [email or web address] 04/12/2025 1:30 AM EDT Home Care Visit [facility] [address] [place] [phone] Shakira Hand, HUA [address] [place] [address] [email or web address] 04/19/2025 12:30 AM EST Home Care Visit [facility] [address] [place] [phone] Shakira Hand RN [address] [place] [address] [email or web address] 04/25/2025 Appointment [facility] [address] [place] [phone] Shakira Hand RN [address] [place] [address] [email or web address] 06/25/2025 9:30 AM EST Telemedicine [facility] Neurology [address] [place] [address] Jn Cardoza MD 22 [facility], 2nd [place] [address] [email or web address] documented as of this encounter Visit Diagnoses Not on filedocumented in this encounter Additional Health Concerns Assessment Noted Time PHQ-2 Depression Total Score: 0 05/25/20 19 9:02 AM EST documented as of this encounter Care Teams Groundskeeping Maintenance Relationship Specialty Start Date End Date Jennifer Duke PRESERVATIVE FILLER MACHINE OPERATOR [address] [place] [address] [email or web address] PCP - General Family Medicine 01/31/20 06/22/23 Sirisha Huertas FNP [address] [place] [address] [email or web address] PCP - General Nurse Practitioner 06/23/23 08/03/24 Liyah Patterson MD [address] [place] [address] [email or web address] PCP - General Family Medicine 08/04/24 10/11/24 Antione Segura PA-C [address] [place] [address] [email or web address] PCP - General Physician Lvn Lpn 10/12/24 Lang Germain MD [address] [place] [address] [email or web address] Insurance Assigned Provider 09/18/23 02/19/24 Jn Cardoza MD 22 [facility], 2nd [place] [address] [email or web address] Neurology 02/03/24 Denys Henriquez MD [address] [place] [address] [place] [address] Pulmonary Disease 02/03/24 Liyah Patterson MD 15 [facility] Subhash. [address] [place] [address] Insurance Assigned Provider 02/19/24 01/20/25 Rhett Cortez MD 40 [place] [address] Insurance Assigned Provider 01/20/25 documented as of this encounter Additional Source Comments The information contained in this document represents components of the legal health record. It is not the complete legal health record.[facility]
--- OUTSIDE RECORDS SUMMARY | 2025-02-26 20:09 | XMS_ITS | Encounter Summary ---
Author Organization [facility] Address [address] [place] [address] Phone Care Team Providers Care Curatorial Assistant Name Role Phone Jn Cardoza MD Unavailable Denys Henriquez MD Unavailable Antione Segura PA-C Primary Care Provider [phone] Rhett Cortez MD Unavailable Reason for Referral * Consultation (Within 3 days (urgent)) - New Request Specialty Diagnoses / Procedures Referred By Dary smith Referred To Contact Diagnoses Chronic obstructive pulmonary disease Phyllis Lee CNP [address] [place] [phone] Phone: tel: fax: [email or web address] Referral ID Status Reason Start Date Expiration Date V isits Requested Visits Authorized [id number] New Request 02/16/2025 02/16/2026 1 1 Reason for Visit * Reason Onset Date Comments Referral 02/16/2025 [facility] Encounter Details Date Type Department Care Team (Late st Contact Info) Description 02/16/2025 Telephone [employer] [facility] Internal Medicine [address] [place] [address] Antione Segura PA-C [address] [place] [address] [email or web address] Referral ([facility]mon[facility]) Social History Tobacco Use Types Packs/Day [...] high school, GED, job training, learning the Icelandic language, technical skills, or developing parenting skills)? [...] are still waiting on authorization, please fax [id number] * Cecile Mackey - 02/16/2025 2:22 PM EDT Start date was 02/07/2025 needs insurance auth * Phyllis Lee CNP - 02/16/2025 12:51 PM EDT VCS Reviewed: Referral signed. Thank you Phyllis Lee CNP 02/16/25 12:51 PM * Radha Haque RN - 02/16/2025 12:46 PM EDT Spoke to Zulma. She is primarily seeing Dr. Henriquez at [facility] but was referred to [facility] for a 2nd opinion. Referral to [facility] pended as requested. * Radha Haque RN - 02/16/2025 12:39 PM EDT Images from the original note were not included. * Mita Diehl - 02/16/2025 12:32 PM EDT Nicole from [facility] Pulmonology called in to check status of an insurance referral that was faxed to theoffice. See medica 02/07. Multiple pulmonology referrals on file for pt. This radio script writer is unsure if this referral is needed or if it is replacing another pulmonology referral that has already been ordered. Please contact and advise. Central Support Supervisor Process Testing (Please do not reply to this user; this inbox is not monitored.) Thank you. documented in this encounter Plan of Treatment Upcoming Encounters Date Type Department Care Team (Late st Contact Info) Description 03/01/2025 1:00 AM EDT Home Care Visit [facility] [address] [place], [place] [phone] Shakira Hand RN [address] [place] [address] 03/08/2025 1:00 AM EDT [facility] [address] [place] [address] Shakira Hand RN [address] [place] [address] [email or web address] 03/15/2025 Home Care Visit [facility] [address] [place] [phone] Shakira Hand RN [address] [place] [address] 03/22/2025 1:00 AM EDT Home Care Visit [facility] [address] [place] [phone] Shakira Hand RN [address] [place] [address] 03/28/2025 9:40 AM EDT Office Visit [facility] [place] [facility] [address] [place] [address] Antione Segura PA-C [address] [place] [address] [email or web address] 03/29/2025 2:00 AM EDT Home Care Visit [facility] [address] [place] [phone] Shakira Hand RN [address] [place] [address] 04/05/2025 2:00 AM EDT Home Care Visit [facility] [address] [place] [phone] Shakira Hand RN [address] [place] [address] [email or web address] 04/12/2025 1:30 AM EDT Home Care Visit [facility] [address] [place] [phone] Shakira Hand RN [address] [place] [address] [email or web address] 04/19/2025 12:30 AM EST Home [facility] [address] [place] [address] Shakira Hand RN [address] [place] [address] 04/25/2025 Appointment [facility] [address] [place], [place] [phone] Shakira Hand RN [address] [place] [address] [email or web address] 06/25/2025 9:30 AM EST Telemedicine [facility] Neurology [address] [place] [address] Jn Cardoza MD [address] [place] [address] Scheduled Referrals Name Type Priority Associated Diagnoses [...] documented as of this encounter Care Teams Curatorial Assistant Relationship Specialty Start Date End Date Antione Segura PA-C [address] [place] [address] PCP - General Physician Program Attendant 10/12/24 Jn Cardoza MD [address] [place] [address] Neurology 02/03/24 Denys Henriquez MD [address] [place] [address] [place], [place] 1939640 Pulmonary Disease 02/03/24 Rhett Cortez MD [address] [place] [address] [email or web address] Insurance Assigned Provider 01/20/25 documented as of this encounter Additional Source Comments The information contained in this document represents components of the legal health record. It is not the complete legal health record.[facility]
--- OUTSIDE RECORDS SUMMARY | 2025-02-26 20:10 | XMS_ITS | Encounter Summary ---
Author Organization [facility] Address [address] [place] [address] Phone Care Team Providers Care Social Work Associate Name Role Phone Jn Cardoza MD Unavailable Denys Henriquez MD Unavailable Antione Segura PA-C Primary Care Provider Rhett Cortez MD Unavailable Encounter Details Date Type Department Care Team (Late st Contact Info) Description 02/20/2025 Orders Only [facility] [address] [place] [address] Provider, MD Omar [address] [place] [address] Social History Tobacco Use Types Packs/Day [...] high school, GED, job training, learning the Guatemalan language, technical skills, or developing parenting skills)? [...] Care Visit [facility] [address] [place] [phone] Shakira Hand RN [address] [place] [address] [email or web address] 03/08/2025 1:00 AM EDT Home Care Visit [facility] [address] [place] [phone] Shakira Hand RN [address] [place] [address] [email or web address] 03/15/2025 Home Care Visit [facility] [address] [place] [phone] Shakira Hand RN [address] [place] [address] [email or web address] 03/22/2025 1:00 AM EDT Home Care Visit [facility] [address] [place] [phone] Shakira Hand RN [address] [place] [address] 03/28/2025 9:40 AM EDT Office Visit [facility] 40 [place], [place] [phone] Antione Segura PA-C 40 [place], [place] [phone] [email or web address] 03/29/2025 2:00 AM EDT Home Care Visit [facility] [address] [place] [place] [phone] Shakira Hand RN [address] [place] [address] 04/05/2025 2:00 AM EDT Home Care Visit [facility] [address] [place] [phone] Shakira Hand RN [address] [place] [address] 04/12/2025 1:30 AM EDT Home Care Visit [facility] [address] [place] [phone] Shakira Hand RN [address] [place] [address] 04/19/2025 12:30 AM EST Home Care Visit [facility] [address] [place] [place] [phone] Shakira Hand RN [address] [place] [address] 04/25/2025 Appointment [facility] [address] [place] [phone] Shakira Hand RN [address] [place] [address] 06/25/2025 9:30 AM EST Telemedicine [facility] Neurology [address] [place] [address] Jn Cardoza MD [address] [address] documented as of this encounter Procedures Procedure [...] documented as of this encounter Care Teams Social Work Associate Relationship Specialty Start Date End Date Antione Segura PA-C 40 [place] [address] PCP - General Physician Enrichment Assistant 10/12/24 Jn Cardoza MD 22 [facility], 2nd [place] [address] Neurology 02/03/24 Denys Henriquez MD [address] [place] [address] [place] [address] Pulmonary Disease 02/03/24 Rhett Cortez MD 40 [place] [address] [email or web address] Insurance Assigned Provider 01/20/25 documented as of this encounter Additional Source Comments The information contained in this document represents components of the legal health record. It is not the complete legal health record.[facility]
--- OUTSIDE RECORDS SUMMARY | 2025-02-26 20:10 | XMS_ITS | Clinical Summary ---
Author Organization [facility] Address [address] [place] [phone] Phone Care Team Providers Care Button Clamper Name Role Phone Jn Cardoza MD Unavailable Denys Henriquez MD Unavailable Antione Segura PA-C Primary Care Provider [phone] Rhett Cortez MD Unavailable Allergies Active Allergy [...] times a day. 360 capsule 01/24/20 25 Active budesonide-glycopyr -formoterol (BREZTRI AEROSPHERE) 160-9-4.8 mcg/actuation inhaler Inhale 2 puffs into the lungs 2 (two) times a day. 01/27/20 Active predniSONE (DELTASONE) 10 MG tablet Take 10 mg by mouth daily. TAPER: [id number] 10MG X4DAYS 5MG X4DAYS 02/13/20 Active predniSONE (DELTASONE) 10 MG tablet Take [...] O2 therapy as prescribed. Referral placed to [facility] Pulmonology. Persistent cough 12/28/2024 Trigeminal neuralgia [...] last year and this was completed at [facility] through her cut in station operator -Her blood pressures have been not well-controlled [...] daily. She follows with Dr. Thurman at [facility]. Patient follows regularly with him. Her [...] Does have outpatient stress test scheduled with [facility] Cardiology. Discussed that results would indicate future management and whether that may include cardiac catheterization. I do not see record of this within her discharge summary from [facility] Assessment & Plan (12/22/2023 9:33 AM EDT): [...] does have an upcoming appointment with her renewals specialist next week. Of note she also saw another renewals specialist Remy Bautista out at [facility] pulmonary and has a follow-up with them [...] follows closely with Dr. Henriquez out of [facility]. She is on Daliresp, DuoNebs and [...] a scheduled appointment on 12/18 with her renewals specialist. She is hoping to get this moved [...] follows closely with Dr. Henriquez out of [facility]. She is on Daliresp, DuoNebs and [...] Continue prednisone as prescribed upon discharge from [facility]. Discussed concern for coronary requirement of nebulizer treatments and albuterol rescue inhaler. We also reviewed the importance of vaping cessation, she remains precontemplative. She does have follow-up appointment scheduled with Dr. Henriquez and has resumed VNA services. Assessment & Plan (11/29/2023 5:28 PM EDT): Recent admission for COPD exacerbation with acute hypoxemic respiratory failure. Current renewals specialist is Dr. Henriquez at [facility]. She is interested in establishing care with [facility] some of her specialists are within the [facility] system for better continuity of care. 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 She is aware of these risks and agrees to continuing medication as prescribed. She understands that she can contact the office should she be interested in discussion of medication regimen. Assessment & Plan (11/01/2023 10:20 AM EDT): PHQ9 Flowsheet Row Office Visit from 10/28/2023 in [facility] PHQ-9 Total Score 24 Results [...] 3 times daily and she was on [place] however during her last hospital stay this [...] study and speech evaluation when inpatient at [place]. Discussed referral to gastroenterology discussed potential of [...] EST): Continue follow-up with Dr. 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 depression and need to minimize use especially [...] Encounters Date Type Department Care Team Description 02/26/2025 Episode Documentation Update [facility] [address] [place] [address] Margy Rubalcava 02/23/2025 11:30 AM EDT Home Care Visit [facility] [address] [place] [address] Shakira Hand, HUA SN OASIS RECERTIFICATION/FUP 02/23/2025 Plan of Care Documentation [facility] [address] [place] [address] 02/21/2025 Episode Documentation Update [facility] [address] [place] [address] Margy Rubalcava 02/20/2025 Orders Only [facility] [address] [place] [address] ProviderOmar MD 02/19/2025 10:30 AM EDT Home Care Visit [facility] [address] [place] [address] Shakira Hand RN SN PRN HOME VISIT 02/19/2025 9:00 AM EDT Home Care Visit [facility] [address] [place] [address] Krysta Charles HOME VISIT 02/16/2025 Home Care Visit [facility] [address] [place] [address] Laquita Mchugh, PT TELEPHONE ENCOUNTER 02/16/2025 Telephone [facility] [address] [place] [address] Antione Segura PA-C Referral ([facility] Pulmonology) 02/16/2025 Home Care Visit [facility] [address] [place] [address] Krysta Charles MOTEL CLERK HOME VISIT 02/15/2025 9:00 AM EDT Office Visit [facility] [address] [place] [address] Antione Segura PA-C Pulmonary emphysema, unspecified emphysema type (Primary Dx) 02/15/2025 Home Care Visit [facility] [address] [place] [phone] Laquita Mchugh, PT TELEPHONE ENCOUNTER 02/14/2025 1:30 PM EDT Home Care Visit [facility] [address] [place] [phone] Shakira Hand RN SN HOME VISIT 02/14/2025 Home Care Visit [facility] [address] [place] [phone] Laquita Mchugh, PT TELEPHONE ENCOUNTER 02/14/2025 Home Care Visit [facility] [address] [place] [phone] Laquita Mchugh, PT TELEPHONE ENCOUNTER 02/14/2025 Orders Only [facility] [address] [place] [address] ProviderOmar MD 02/14/2025 Documentation [facility] [address] [place] [address] Antione Segura PA-C 02/14/2025 Home Care Visit [facility] [address] [place] [phone] Krysta Charles MOTEL CLERK HOME VISIT 02/13/[address] [phone] Antione Segura PA-C Appointment (Tcm+discharged 02/09/25 ) 02/12/2025 12:30 PM EDT Home Care Visit [facility] [address] [place] [phone] Shakira Hand, RN SN OASIS RESUMPTION OF CARE (VERONIKA) 02/11/2025 Home Care Visit [facility] [address] [place] [address] Maritza Calix, RN CASE COMMUNICATION 02/09/2025 Home Health Resumption of Care Planning [facility] [address] [place] [address] Koki Simons RN 02/08/2025 1:00 AM EDT Home Care Visit [facility] [address] [place] [address] Shakira Hand RN SN OASIS TRANSFER 02/05/2025 Home Care Visit [facility] [address] [place] [address] Krysta Charles CASE COMMUNICATION 02/01/2025 3:30 PM EDT Home Care Visit [facility] [address] [place] [address] Yane Lanza, PT PT HOME VISIT 02/01/2025 4:00 AM EDT Home Care Visit [facility] [address] [place] [address] Krysta Charles HOME VISIT 01/31/2025 1:30 PM EDT Home Care Visit [facility] [address] [place] [address] Shakira Hand, HUA SN HOME VISIT 01/29/2025 3:30 PM EDT Home Care Visit [facility] [address] [place] [address] Yane Lanza, PT PT HOME VISIT 01/29/2025 8:15 AM EDT Home Care Visit [facility] [address] [place] [address] Krysta Charles HOME VISIT 01/29/2025 Refill [facility] [address] [place] [address] Antione Segura PA-C Medication Refill 01/29/2025 Telephone [facility] [address] [place] [address] Antione Segura PA-C Request For Order(s) 01/26/2025 Home Care Visit [facility] [address] [place] [address] Karlene Berumen, RN TELEPHONE ENCOUNTER 01/25/2025 2:30 PM EDT Home Care Visit [facility] [address] [place] [address] Yane Lanza, PT PT EVALUATION 01/25/2025 4:00 AM EDT Home Care Visit [facility] [address] [place] [address] Krysta Charles MOTEL CLERK HOME VISIT 01/25/2025 1:00 AM EDT Home Care Visit [facility] [address] [place] [address] Karlene Berumen, RN SN HOME VISIT 01/24/2025 Telephone [facility] [address] [place] [address] Antione Segura PA-C PFT 01/24/2025 Telephone [facility] [address] [place] [address] Eliana Prabhakar, ANGELINA Breast Cancer Screening 01/23/2025 9:00 AM EDT Home Care Visit [facility] [address] [place] [address] Rich Mariscal PLATE FILLER HOME VISIT 01/23/2025 4:30 AM EDT Home Care Visit [facility] [address] [place] [address] Krysta Charles HOME VISIT 01/22/2025 Home Care Visit [facility] [address] [place] [phone] Yane Lanza, PT TELEPHONE ENCOUNTER 01/22/2025 Refill [facility] [address] [place] [address] Antione Segura PA-C Medication Refill 01/18/2025 11:00 AM EDT Home Care Visit [facility] [address] [place] [phone] Shakira Hand RN SN HOME VISIT 01/18/2025 9:15 AM EDT Home Care Visit [facility] [address] [place] [phone] Krysta Charles MOTEL CLERK HOME VISIT 01/18/2025 Telephone [facility] [address] [place] [address] Antione Segura PA-C Medication Question (Gabapentin) 01/18/2025 Episode Documentation Update [facility] [address] [place] [address] Mayra Burton 01/17/2025 2:30 PM EDT Home Care Visit [facility] [address] [place] [phone] Krysta Charles MOTEL CLERK HOME VISIT 01/17/2025 Telephone [facility] [address] [place] [address] Elida Lindquist, HUA VNA Orders 01/15/2025 Episode Documentation Update [facility] [address] [place] [address] Mayra Burton 01/14/2025 Home Care Visit [facility] [address] [place] [phone] Raya Howard, PT TELEPHONE ENCOUNTER 01/12/2025 Refill [facility] [address], [place] [phone] Antione Segura PA-C Medication Refill 01/12/2025 Telephone [facility] [address], [place] [phone] Antione Segura PA-C VNA Orders 01/11/2025 10:00 AM EDT Home Care Visit [facility] [address] [place] [address] Shakira Hand, HUA SN HOME VISIT 01/11/2025 Episode Documentation Update [facility] [address] [place] [address] Mayra Burton 01/10/2025 12:30 PM EDT Home Care Visit [facility] [address] [place] [address] Shakira Hand, HUA SN OASIS RESUMPTION OF CARE (VERONIKA) 01/10/2025 Telephone [facility] [address], [place] [phone] Antione Segura PA-C Referral (Pulmonology referral update to urgent) 01/09/2025 3:00 PM EDT Home Care Visit [facility] [address] [place] [address] Shakira Hand, HUA SN OASIS TRANSFER 01/09/2025 Home Health Resumption of Care Planning [facility] [address] [place] [address] Koki Simons RN 01/04/2025 Orders Only [facility] [address], [place] [phone] Omar Cooley MD 01/04/2025 Telephone [facility] [address], [place] [phone] Antione Segura PA-C Shortness of Breath 01/04/2025 Telephone [facility] [address] [place] [address] Brittnee Vigil MD 01/02/2025 1:00 PM EDT Home Care Visit [facility] [address] [place] [phone] Shakira Hand RN SN HOME VISIT 01/02/2025 Telephone [facility] [address] [place] [address] Eliana Prabhakar CNP Follow-up 01/01/2025 Home Care Visit [facility] [address] [place] [phone] Claudia Charles, PT PT EVALUATION 12/29/2024 12:00 PM EDT Home Care Visit [facility] [address] [place] [phone] Shakira Hand RN SN HOME VISIT 12/28/2024 3:00 PM EDT Office Visit [facility] [address] [place] [address] Eliana Prabhakar CNP Acute on chronic hypoxic respiratory failure (Primary Dx); Persistent cough; Anxiety; Trigeminal neuralgia; 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; Occipital neuralgia of left side; Acute congestive heart failure, unspecified heart failure type; Benign essential hypertension; Irritable bowel syndrome with both constipation and diarrhea; Chronic low back pain, unspecified back pain laterality, unspecified whether sciatica present 12/28/2024 Telephone [facility] [address] [place] [address] Antione Segura PA-C VNA Orders 12/28/2024 Plan of Care Documentation [facility] [address] [place] [phone] 12/27/2024 3:00 PM EDT Home Care Visit [facility] [address] [place] [address] Shakira Hand RN SN OASIS START OF CARE (SOC) 12/26/2024 Refill [facility] [address], [place] [phone] Antione Segura PA-C Medication Refill 12/26/2024 Documentation [facility] [address], [place] [phone] Antione Segura PA-C 12/25/2024 Home Care Visit [facility] [address] [place] [address] Lelo Roa RN NON ADMIT HOME HEALTH VISIT 12/25/2024 Orders Only [facility] [address] [place] [address] Homehealth, Interface MD Lenora 12/23/2024 Home Care Visit [facility] [address] [place] [address] Maritza Calix, RN CASE COMMUNICATION 12/22/2024 Orders Only [facility] [address], [place] [phone] Provider, MD Omar 12/20/2024 Telephone [facility] [address], [place] [phone] Antione Segura PA-C TCM Visit (Unable to schedule) 12/18/2024 Orders Only [facility] [address] [place] [address] Homehealth, Interface MD Lenora 12/18/2024 Home Care Visit [facility] [address] [place] [phone] Shakira Hand RN SN NON OASIS DISCHARGE NON VISIT/TELEPHONE 12/14/2024 5:35 AM EDT - 12/14/2024 11:59 PM EDT Hospital Encounter [facility] [address] [place] [address] Nba Roberson MD Discharge Disposition: Home or Self Care 12/11/2024 Home Care Visit [facility] [address] [place] [phone] Lelo Roa, RN CASE COMMUNICATION 12/11/2024 Refill [facility] [address] [place] [address] Sirisha Huertas FNP Medication Refill 12/09/2024 Home Care Visit [facility] [address] [place] [phone] Maritza Calix, HUA CASE COMMUNICATION 12/08/2024 Home Care Visit [facility] [address] [place] [phone] Lelo Roa RN TELEPHONE ENCOUNTER 12/06/2024 Home Health Resumption of Care Planning [facility] [address] [place] [phone] Diana Torres RN 12/01/2024 Home Care Visit [facility] [address] [place] [phone] Lelo Roa, HUA SN OASIS TRANSFER 12/01/2024 Orders Only [facility] [address] [place] [address] ProviderOmar MD 11/29/2024 4:40 PM EDT Office Visit [facility] [address] [place] [address] Antione Segura PA-C Acute congestive heart failure, unspecified heart failure type (Primary Dx) 11/28/2024 Telephone [facility] [address] [place] [address] Antione Segura, MIREYA Shortness of Breath; Leg Swelling from Last 3 Months Immunizations Immunization Administration [...] high school, GED, job training, learning the Bahamian language, technical skills, or developing parenting skills)? [...] F) 02/23/2025 12:05 PM EDT Respiratory Rate 21 02/15/2025 9:02 AM EDT Oxygen Saturation 93% 02/23/2025 12:05 PM EDT [...] Visit [facility] [address] [place] [phone] Shakira Hand RN [address] [place] [address] [email or web address] 03/08/2025 1:00 AM EDT Home Care Visit [facility] [address] [place] [phone] Shakira Hand RN [address] [place] [address] [email or web address] 03/15/2025 Home Care Visit [facility] [address] [place] [phone] Shakira Hand RN [address] [place] [address] [email or web address] 03/22/2025 1:00 AM EDT Home Care Visit [facility] [address] [place] [phone] Shakira Hand RN [address] [place] [address] [email or web address] 03/28/2025 9:40 AM EDT Office Visit [facility] [address] [place] [address] Antione Tavera PA-C [address] [place] [phone] [email or web address] 03/29/2025 2:00 AM EDT Home Care Visit [facility] [address] [place] [phone] Shakira Hand RN [address] [place] [address] [email or web address] 04/05/2025 2:00 AM EDT Home Care Visit [facility] [address] [place] [phone] Shakira Hand RN [address] [place] [phone] [email or web address] 04/12/2025 1:30 AM EDT Home Care Visit [facility] [address] [place] [phone] Shakira Hand RN [address] [place] [address] [email or web address] 04/19/2025 12:30 AM EST Home Care Visit [facility] [address] [place] [phone] Shakira Hand RN [address] [place] [address] [email or web address] 04/25/2025 Appointment [facility] [address] [place] [phone] Shakira Hand RN [address] [place] [address] [email or web address] 06/25/2025 9:30 AM EST Telemedicine [facility] Neurology [address] [place] [address] Jn Cardoza MD [address] [place] [address], [address] [place] [address] [email or web address] Due Date Last Done Comments [...] REPEAT PHQ 03/03/2025 01/31/2025, 01/31/2025 BLOOD PRESSURE 08/23/2025 02/23/2025 DEPRESSION SCREENING 01/31/2026 01/31/2025, 02/01/20 25 CREATININE [...] Imaging Report Only (02/17/2025 11:14 AM EDT) Historical Provider MD DAWKINS XR CHEST Final Res ult * Outside US Breast Report Only (02/14/2025 4:39 PM EDT) Historical Provider MD DAWKINS US BREAST Final Res ult * HM MAMMOGRAPHY FOR RESULT ENTRY ONLY (02/14/2025 2:39 PM EDT) Historical Provider HEALTH MAINTENANCE Final Result * Outside Potassium Level (02/08/2025) Only the most recent of2 resultswithin the time period is included. Potassium level - External 3.8 3.4 - 5.0 mmol/L Historical Provider LAB BLOOD ORDERABLES Mariya l Result * (ABNORMAL) Outside Serum Creatinine Level (02/08/2025) Only the most recent of2 resultswithin the time period is included. Creatinine, serum - External 0.66(A) 0.8 - 1.3 mg/dL Result [facility] Provider LAB BLOOD ORDERABLES Mariya l Result * Outside ALT Level (02/05/2025) Only the most recent of2 resultswithin the time period is included. Pathologist [facility] ALT - External 15 5 - 30 U/L Result [facility] LAB BLOOD ORDERABLES Mariya l Result * Outside XR??Chest Report Only (01/04/2025 1:21 PM EDT) Result [facility] Provider IMG XR CHEST Final Res ult * Outside Imaging Report Only (12/21/2024 1:01 PM EDT) Result [facility] Provider IMG XR CHEST Final Res ult * Outside Imaging Report Only (12/21/2024 10:25 AM EDT) Result [facility] Provider IMG XR CHEST Final Res ult * Outside Imaging Report Only (12/21/2024 8:15 AM EDT) Result [facility] Provider IMG XR CHEST Final Res ult * Outside Imaging Report Only (12/21/2024 8:12 AM EDT) Result [facility] Provider IMG XR CHEST Final Res ult * (ABNORMAL) Comprehensive metabolic panel (12/14/2024 4:45 AM EDT) SODIUM 140 133 - 146 mmol/L [facility] POTASSIUM 3.8 3.3 - 5.1 mmol/L [facility] CHLORIDE 97 96 - 108 mmol/L [facility] CO2 34 21 - 35 mmol/L [facility] BUN 19 6 - 19 mg/dL [facility] CREATININE 0.70 0.5 - 1.5 mg/dL [facility] GLUCOSE 87 70 - 99 mg/dL [facility] ALBUMIN 4.0 3.9 - 4.8 g/dL [facility] TOTAL PROTEIN 6.2(L) 6.5 - 8.0 g/dL [facility] CALCIUM 9.8 8.4 - 10.3 mg/dL [facility] ALKALINE PHOSPHATASE 63 39 - 117 U/L [facility] TOTAL BILIRUBIN <0.2 0.0 - 1.2 mg/dL [facility] AST 11 0 - 37 U/L [facility] ALT 10 0 - 40 U/L [facility] GLOBULIN 2.2 1 - 4.8 g/dL [facility] EGFR 98 >59 mL/min/1.7 3m2 [facility] Comment:Estimated glomerular filtration rate calculated using the CKD-EPI refit equation. ANION GAP 13 10 - 20 mmol/L [facility] Blood 12/14/2024 4:45 AM EDT 12/14/2024 6:03 AM EDT us Jn Cardoza MD LAB BLOOD ORDERABLES Final Resul t [facility] [address] [place], [place] [phone] * (ABNORMAL) CBC and differential (12/14/2024 4:45 AM EDT) WBC 14.11(H) 4.00 - 11.00 K/uL [facility] RBC 3.99(L) 4.00 - 5.20 M/uL [facility] HGB 12.7 12.0 - 16.0 g/dL [facility] HCT 40.1 36.0 - 46.0 % [facility] PLT 394 150 - 450 K/uL [facility] MCV 100.5(H) 80.0 - 100.0 fL [facility] MCH 31.8(H) 27.0 - 31.0 pg [facility] MCHC 31.7(L) 32.0 - 36.0 g/dL [facility] RDW 13.5 11.5 - 14.5 % [facility] MPV 9.2 8.4 - 12.0 fL [facility] NRBC 0.00 0.00 /100 WBCs [facility] ABSOLUTE NRBC 0.00 0.00 K/uL [facility] DIFF METHOD Auto [facility] NEUTS 72.2 48.0 - 76.0 % [facility] LYMPHS 15.0(L) 18.0 - 41.0 % [facility] MONOS 9.9 4.0 - 11.0 % [facility] EOS 1.4 0.0 - 5.0 % [facility] BASOS 0.4 0.0 - 1.5 % [facility] Granulocytes, immature (%) 1.1(H) 0.0 - 0.9 % [facility] ABSOLUTE NEUTS 10.20(H) 1.92 - 7.60 K/uL [facility] ABSOLUTE LYMPHS 2.11 0.72 - 4.10 K/uL [facility] ABSOLUTE MONOS 1.39(H) 0.16 - 1.10 K/uL [facility] ABSOLUTE EOS 0.20 0.00 - 0.50 K/uL [facility] ABSOLUTE BASOS 0.05 0.00 - 0.15 K/uL [facility] Granulocytes, immature 0.16(H) 0.00 - 0.09 K/uL [facility] Blood 12/14/2024 4:45 AM EDT 12/14/2024 6:03 AM EDT us Jn Cardoza MD LAB BLOOD ORDERABLES Final Resul t Performing Organization Address City/State/[facility] Co de Phone Number [address] [address] * Outside CT Head/Neck Report Only (12/01/2024 4:44 PM EDT) Historical Provider MD DAWKINS CT HEAD/NECK Final Re sult * Outside CT Abd/pelvis Report Only (12/01/2024 4:26 PM EDT) Historical Provider MD DAWKINS CT ABD/PELVIS Final R esult * Outside CT??Chest Report Only (11/30/2024 3:48 PM EDT) us Historical Provider MD DAWKINS CT CHEST Final Res ult * Outside XR??Chest Report Only (11/30/2024 3:38 PM EDT) us Historical Provider MD DAWKINS XR CHEST Final Res ult * CT [...] (08/22/2021 8:13 AM EST) HDL 54 mg/dL [facility] Comment: Interpretation <40 mg/dL: Low HDL cholesterol (major risk factor for CHD) Greater than or equal to 60 mg/dL: High HDL cholesterol ( negative risk factor for CHD) HDL - cholesterol is affected by a number of factors, e.g. smoking, excerise, hormones, sex and age. CHOLESTEROL 237 0 - 240 mg/dL [facility] TRIGLYCERIDES 201(H) 30 - 160 mg/dL [facility] LDL 143(H) 50 - 129 mg/dL [facility] Comment: LDL levels in terms of risk for coronary heart disease: <100 mg/dL: Optimal 100-129 mg/dL: Near or above optimal 130-159 mg/dL: Borderline high 160-189 mg/dL: High >190 mg/dL: Very High CARDIAC RISK RATIO 4.4 3.3 - 4.4 [facility] Blood 08/22/2021 8:13 AM EST 08/22/2021 8:17 AM EST Jennifer Duke NP LAB BLOOD ORDERABLES Final Resu lt [address] [address] * Pap Smear (02/22/2020 12:00 AM EDT) 02/22/2020 02/23/2020 8:2 1 AM EDT Narrative SEE NARRATIVE - 02/27/2020 11:20 AM EDT [address] [address] [place] Maker: Perla Luis MD INSIDE SALES ACCOUNT EXECUTIVE Cytology Report FINAL DIAGNOSIS A. PAP SMEAR [...] 52, 56, 58, 59, 66, 68) by [employer] Onclarity HR-HPV analysis. Clinical correlation is advised. This HPV test was performed at [facility], [address] [place] [address]. This test has been FDA approved for [facility] cervical cytology specimens. The accuracy and precision of this test for all other specimen sources has been verified in the Cytopathology Laboratory of the [facility] and has not been cleared or approved by the U.S. Food and Drug Administration. Clinical correlation is advised. CLINICAL HISTORY Date of Last Menstrual Period: 2009 Menstrual History: Post Menopausal Other Clinical Conditions: Screening Pap SPECIMEN SOURCE A: PAP SMEAR (SUREPATH) CE Patient Name: MAYRA CONSTANTINO : 1965 (Age: 55) Sex: F Institution: [facility] Location: [facility] [place] Date of Collection: 02/22/2020 Date of Reported: 02/27/2020 11:20 Results to: Jennifer Duke MSN, BSN us Jennifer Duke NP CYTOLOGY ORDERABLES Final Resul t Performing Organization Address City/[facility] Co de Phone Number SEE NARRATIVE * Hepatitis C antibody, qualitative (05/25/2019 10:24 AM EST) HCV NON-REACTIV E NON-REACTI VE [facility] Blood 05/25/2019 10:2 4 AM EST 05/25/2019 10:26 AM EST us Jennifer Duke NP LAB BLOOD ORDERABLES Final Resu lt [facility] [address] [place] [address] * COLONOSCOPY FOR RESULT ENTRY ONLY (12/04/2013) HM Colonoscopy repeat 10 yrs us Historical Provider MD HEALTH MAINTENANCE Final Result from Last 3 Months or Most Recently Relevant to Health Maintenance Insurance [facility] Address[facility] [id number] [place] [address] MEDICARE A [facility] MEDICARE A [facility] [place] [id number] [facility] MEDICARE A [facility] MEDICARE A [facility] Marielle JBER, [place] [facility] MEDICARE A Advance Directives For more information, please contact: [phone] (9AM - 5PM [place]/[facility], Wednesday-Wednesday) Documents on File Type Date Recorded Patient Quality Systems Specialist Expl anation MOLST 02/15/2025 MOLST * Full Code (Latest Code Status on File) Date Activated Date Inactivated Comments 02/15/2025 9:52 AM Question Answer Comments Code Status Confirmed With: Patient Care Teams Button Clamper Relationship Specialty Start Date End Date Antione Segura PA-C [address] [place] [address] [email or web address] PCP - General Physician Nailing Machine Operator 10/12/24 Jn Cardoza MD 22 [facility], [address] [place] [address] Neurology 02/03/24 Denys Henriquez MD [address] [place] [address] [place] [address] Pulmonary Disease 02/03/24 Rhett Cortez MD [address] [place] [address] Insurance Assigned Provider 01/20/25 Additional Source Comments The information contained in this document represents components of the legal health record. It is not the complete legal health record.[facility]
--- OUTSIDE RECORDS SUMMARY | 2025-02-26 20:10 | XMS_ITS | Encounter Summary ---
Author Organization [facility] Address [address] [place] [address] Phone Care Team Providers Care Biodiesel Plant Superintendent Name Role Phone Lang Germain MD Unavailable [phone] Jennifer Duke OIL EXPELLER OPERATOR Primary Care Provider Sirisha Huertas MANAGER HEALTH Primary Care Provider [phone] Jn Cardoza MD Unavailable Denys Henriquez MD Unavailable Liyah Patterson MD Unavailable Liyah Patterson MD Primary Care Provider [phone] Antione Segura PA-C Primary Care Provider [phone] Rhett Cortez MD Unavailable Encounter Details Date Type Department Care Team (Late st Contact Info) Description 05/06/2021 Procedure Pass [facility], [address] [address] Social History Tobacco Use Types Packs/Day Years [...] Care Visit [facility] [address] [place] [phone] Shakira Hand RN [address] [place] [address] 03/08/2025 1:00 AM EDT Home Care Visit [facility] [address] [place] [phone] Shakira Hand RN [address] [place] [address] 03/15/2025 Home Care Visit [facility] [address] [place] [phone] Shakira Hand RN [address] [place] [address] 03/22/2025 1:00 AM EDT Home Care Visit [facility] [address] [place] [phone] Shakira Hand RN [address] [place] [address] 03/28/2025 9:40 AM EDT Office Visit [facility] [place] [facility] [address] [place] [address] Antione Segura PA-C [address] [place], [place] [phone] 03/29/2025 2:00 AM EDT Home Care Visit [facility] [address] [place] [phone] Shakira Hand, HUA [address] [place] [address] 04/05/2025 2:00 AM EDT Home Care Visit [facility] [address] [place] [phone] Shakira Hand RN [address] [place] [address] 04/12/2025 1:30 AM EDT Home Care Visit [facility] [address] [place] [phone] Shakira Hand RN [address] [place] [address] 04/19/2025 12:30 AM EST Home Care Visit [facility] [address] [place] [phone] Shakira Hand, HUA [address] [place] [address] 04/25/2025 Appointment [facility] [address] [place] [phone] Shakira Hand RN [address] [place] [address] 06/25/2025 9:30 AM EST Telemedicine [facility] Neurology [address] [place] [address] Jn Cardoza MD 22 [facility], [address] [place] [address] documented as of this encounter Visit Diagnoses Not on filedocumented in this encounter Additional Health Concerns Assessment Noted Time PHQ-2 Depression Total Score: 0 05/25/20 19 9:02 AM EST documented as of this encounter Care Teams Biodiesel Plant Superintendent Relationship Specialty Start Date End Date Jennifer Duke, OIL EXPELLER OPERATOR [address] [place] [address] [email or web address] PCP - General Family Medicine 01/31/20 06/22/23 Sirisha Huertas FNP [address] [place] [address] [email or web address] PCP - General Nurse Practitioner 06/23/23 08/03/24 Liyah Patterson MD [address] [place] [address] [email or web address] PCP - General Family Medicine 08/04/24 10/11/24 Antione Segura PA-C [address] [place] [address] [email or web address] PCP - General Physician High School Music Instructor 10/12/24 Lang Germain MD [address] [place] [address] [email or web address] Insurance Assigned Provider 09/18/23 02/19/24 Jn Cardoza MD 22 [facility], 2nd [place] [address] [email or web address] Neurology 02/03/24 Denys Henriquez MD [address] [place] [address] [place] [address] Pulmonary Disease 02/03/24 Liyah Patterson MD [address] [place] [address] [email or web address] Insurance Assigned Provider 02/19/24 01/20/25 Rhett Cortez MD [address] [place] [address] [email or web address] Insurance Assigned Provider 01/20/25 documented as of this encounter Additional Source Comments The information contained in this document represents components of the legal health record. It is not the complete legal health record.[facility]
--- OUTSIDE RECORDS SUMMARY | 2025-02-26 20:10 | XMS_ITS | Encounter Summary ---
Author Organization [facility] Address [address] [place] [address] Phone Care Team Providers Care Extruder Operator Horizontal Name Role Phone Lagn Germain MD Unavailable Jennifer Duke BAND SHOVER Primary Care Provider Sirisha Huertas REFRACTORY SPECIALIST Primary Care Provider [phone] Jn Cardoza MD Unavailable Denys Henriquez MD Unavailable Liyah Patterson MD Unavailable Liyah Patterson MD Primary Care Provider [phone] Antione Segura PA-C Primary Care Provider Rhett Cortez MD Unavailable Encounter Details Date Type Department Care Team (Late st Contact Info) Description 09/01/2021 Procedure Pass [address] [address] Social History Tobacco Use Types Packs/Day Years [...] Care Visit [facility] [address] [place] [phone] Shakira Hand RN [address] [place] [address] [email or web address] 03/08/2025 1:00 AM EDT Home [facility] Visit [facility] [address] [place] [phone] Shakira Hand RN [address] [place] [address] [email or web address] 03/15/2025 Home Care Visit [facility] [address] [place] [phone] Shakira Hand RN [address] [place] [address] [email or web address] 03/22/2025 1:00 AM EDT Home Care Visit [facility] [address] [place] [phone] Shakira Hand RN [address] [place] [address] [email or web address] 03/28/2025 9:40 AM EDT Office Visit [facility] [place] [facility] 40 [place] [address] Antione Segura PA-C 40 [place], [place] [phone] 03/29/2025 2:00 AM EDT Home Care Visit [facility] [address] [place] [phone] Shakira Hand, HAU [address] [place] [address] 04/05/2025 2:00 AM EDT Home Care Visit [facility] [address] [place] [phone] Shakira Hand RN [address] [place] [address] 04/12/2025 1:30 AM EDT Home Care Visit [facility] [address] [place] [phone] Shakira Hand RN [address] [place] [address] 04/19/2025 12:30 AM EST Home Care Visit [facility] [address] [place] [phone] Shakira Hand, HUA [address] [place] [address] 04/25/2025 Appointment [facility] [address] [place] [phone] Shakira Hand RN [address] [place] [address] 06/25/2025 9:30 AM EST Telemedicine [facility] Neurology [address] [place] [address] Jn Cardoza MD 22 [facility], [address]nd [place] [address] documented as of this encounter Visit Diagnoses Not on filedocumented in this encounter Additional Health Concerns Assessment Noted Time PHQ-2 Depression Total Score: 0 05/25/20 19 9:02 AM EST documented as of this encounter Care Teams Extruder Operator Horizontal Relationship Specialty Start Date End Date Jennifer Duke, BAND SHOVER [address] [place] [address] [email or web address] PCP - General Family Medicine 01/31/20 06/22/23 Sirisha Huertas FNP [address] [place] [address] [email or web address] PCP - General Nurse Practitioner 06/23/23 08/03/24 Liyah Patterson MD [address] [place] [address] [email or web address] PCP - General Family Medicine 08/04/24 10/11/24 Antione Segura PA-C [address] [place] [address] [email or web address] PCP - General Physician Drivematic Machine Operator 10/12/24 Lang Germain MD [address] [place] [address] [email or web address] Insurance Assigned Provider 09/18/23 02/19/24 Jn Cardoza MD 22 [facility], 2nd [place] [address] [email or web address] Neurology 02/03/24 Denys Henriquez MD [address] [place] [address] [place] [address] Pulmonary Disease 02/03/24 Liyah Patterson MD [address] [place] [address] [email or web address] Insurance Assigned Provider 02/19/24 01/20/25 Rhett Cortez MD [address] [place] [address] [email or web address] Insurance Assigned Provider 01/20/25 documented as of this encounter Additional Source Comments The information contained in this document represents components of the legal health record. It is not the complete legal health record.[facility]
--- OUTSIDE RECORDS SUMMARY | 2025-02-26 20:10 | XMS_ITS | Encounter Summary ---
Author Organization [facility] Address [address] [employer] [address] [address] Phone Care Team Providers Care Deck Officer Name Role Phone Jn Cardoza MD Unavailable Denys Henriquez MD Unavailable Antione Segura PA-C Primary Care Provider [phone] Rhett Cortez MD Unavailable Encounter Details Date Type Department Care Team (Late st Contact Info) Description 02/26/2025 Episode Documentatio n Update [facility] [address] [place] [phone] Margy Rubalcava [address] [place] [address] [email or web address] Social History Tobacco Use Types Packs/Day Years [...] Care Visit [facility] [address] [place] [phone] Shakira Hand RN [address] [place] [address] 03/08/2025 1:00 AM EDT Home [facility] Visit [facility] [address] [place] [phone] Shakira Hand RN [address] [place] [address] 03/15/2025 Home Care Visit [facility] [address] [place] [phone] Shakira Hand RN [address] [place] [address] 03/22/2025 1:00 AM EDT Home Care Visit [facility] [address] [place] [phone] Shakria Hand RN [address] [place] [address] 03/28/2025 9:40 AM EDT [facility] Visit [facility] [place] [facility] [address] [place], [place] [phone] Antione Segura PA-C [address] [place] [address] 03/29/2025 2:00 AM EDT Home Care Visit [facility] [address] [place] [phone] Shakira Hand RN [address] [place] [address] 04/05/2025 2:00 AM EDT Home Care Visit [facility] [address] [place] [phone] Shakira Hand RN [address] [place] [address] 04/12/2025 1:30 AM EDT Home Care Visit [facility] [address] [place] [phone] Shakira Hand RN [address] [place] [address] 04/19/2025 12:30 AM EST Home Care Visit [facility] [address] [place] [phone] Shakira Hand RN [address] [place] [address] 04/25/2025 Appointment [facility] [address] [place] [phone] Shakira Hand RN [address] [place] [address] 06/25/2025 9:30 AM EST Telemedicine [facility] Neurology [address] [place] [address] Jn Cardoza MD 22 [facility], [address] [place] [address] documented as of this encounter Visit Diagnoses Not on filedocumented in this encounter Additional Health Concerns Assessment Noted Time PHQ-9 Depression Total Score: 15 025 9:44 AM EDT PHQ-2 Depression Total Score: 4 02/01/20 25 9:44 AM EDT documented as of this encounter Care Teams Deck Officer Relationship Specialty Start Date End Date Antione Segura PA-C [address] [place] [address] PCP - General Physician Animal Care Taker 10/12/24 Jn Cardoza MD 22 [facility], 2nd [place] [address] Neurology 02/03/24 Denys Henriquez MD [address] [place] [address] [place] [address] Pulmonary Disease 02/03/24 Rhett Cortez MD [address] [place] [address] Insurance Assigned Provider 01/20/25 documented as of this encounter Additional Source Comments The information contained in this document represents components of the legal health record. It is not the complete legal health record.[facility]
--- OUTSIDE RECORDS SUMMARY | 2025-02-26 20:10 | XMS_ITS | Encounter Summary ---
Author Organization [facility] Address [address] [place] [address] Phone Care Team Providers Care Observer Electrical Prospecting Name Role Phone Jn Cardoza MD Unavailable Denys Henriquez MD Unavailable Antione Segura PA-C Primary Care Provider Rhett Cortez MD Unavailable Reason for Visit * Reason Onset Date Comments PFT 01/24/2025 Encounter Details Date Type Department Care Team (Late st Contact Info) Description 01/24/2025 Telephone [facility] [address] [place], [place] [phone] Antione Segura PA-C [address] [place] [address] [email or web address] PFT Social [...] high school, GED, job training, learning the [place] language, technical skills, or developing parenting skills)? [...] Vanesa Macias - 01/24/2025 4:12 PM EDT [facility] PEN Top Smart Phrases: Fax Request Name of caller, if not the patient, AND where they are calling from: PT Name of Facility fax is being sent to: [facility] pulmonary Document(s) requested:all PFT testing with Graph[facility] and [facility] Call Center CSS Agent (Please do not reply to this user, as this inbox is not monitored. Thank you.) Thank you. documented in this encounter Plan of Treatment Upcoming Encounters Date Type Department Care Team (Late st Contact Info) Description 03/01/2025 1:00 AM EDT Home Care Visit [facility] [address] [place] [phone] Shakira Hand RN [address] [place] [address] 03/08/2025 1:00 AM EDT Home Care Visit [facility] [address] [place] [address] Shakira Hand RN [address] [place] [address] 03/15/2025 Home Care Visit [facility] [address] [place] [phone] Shakira Hand RN [address] [place] [address] 03/22/2025 1:00 AM EDT Home Care Visit [facility] [address] [place] [phone] Shakira Hand RN [address] [place] [address] 03/28/2025 9:40 AM EDT Office Visit [facility] [place] [facility] [address] [place] [address] Antione Segura PA-C [address] [place] [address] [email or web address] 03/29/2025 2:00 AM EDT Home Care Visit [facility] [address] [place] [phone] Shakira Hand, HUA [address] [place] [address] 04/05/2025 2:00 AM EDT Home Care Visit [facility] [address] [place] [phone] Shakira Hand RN [address] [place] [address] 04/12/2025 1:30 AM EDT Home Care Visit [facility] [address] [place] [phone] Shakira Hand RN [address] [place] [address] 04/19/2025 12:30 AM EST Home Care Visit [facility] [address] [place] [phone] Shakira Hand RN [address] [place] [address] 04/25/2025 Appointment [facility] [address] [place] [phone] Shakira Hand, HUA [address] [place] [address] 06/25/2025 9:30 AM EST Telemedicine [facility] Neurology [address] [place] [address] Jn Cardoza MD [address] [address] documented as of this encounter Visit Diagnoses Not on filedocumented in this encounter Additional Health Concerns Assessment Noted Time PHQ-9 Depression Total Score: 20 025 9:08 PM EDT PHQ-2 Depression Total Score: 6 12/28/19 25 9:08 PM EDT documented as of this encounter Care Teams Observer Electrical Prospecting Relationship Specialty Start Date End Date Antione Segura PA-C [address] [place] [phone] [email or web address] PCP - General Physician Wire Fence Builder 10/12/24 Jn Cardoza MD [address] [place] [address] Neurology 02/03/24 Denys Henriquez MD [address] [place] [address] [place] [address] Pulmonary Disease 02/03/24 Rhett Cortez MD [address] [place] [address] [email or web address] Insurance Assigned Provider 8/9/25 documented as of this encounter Additional Source Comments The information contained in this document represents components of the legal health record. It is not the complete legal health record.[facility]
--- OUTSIDE RECORDS SUMMARY | 2025-02-26 20:10 | XMS_ITS | Encounter Summary ---
Author Organization [facility] Address [address] [place] [address] Phone Care Team Providers Care Woven Paper Hat Mender Name Role Phone Lang Germain MD Unavailable Jennifer Duke CLAIMS EXAMINER Primary Care Provider Sirisha Huertas LICENSED MARRIAGE AND FAMILY THERAPIST Primary Care Provider Jn Cardoza MD Unavailable Denys Henriquez MD Unavailable Liyah Patterson MD Unavailable Liyah Patterson MD Primary Care Provider [phone] Antione Segura PA-C Primary Care Provider [phone] Rhett Cortez MD Unavailable Encounter Details Date Type Department Care Team (Late st Contact Info) Description 06/30/2022 Procedure Pass [facility], Ct Scan - [address] [address] Social History Tobacco Use Types Packs/Day Years Used Date Smoking Tobacco: Every Day Cigarettes 0.8 43.3 Started: 11/25/1981 Smokeless Tobacco: Never Alcohol [...] Care Visit [facility] [address] [place] [phone] Shakira Hand RN [address] [place] [address] [email or web address] 03/08/2025 1:00 AM EDT Home Care Visit [facility] [address] [place] [phone] Shakira Hand RN [address] [place] [address] [email or web address] 03/15/2025 Home Care Visit [facility] [address] [place] [phone] Shakira Hand RN [address] [place] [address] [email or web address] 03/22/2025 1:00 AM EDT Home Care Visit [facility] [address] [place] [phone] Shakira Hand RN [address] [place] [address] [email or web address] 03/28/2025 9:40 AM EDT Office Visit [facility] [address] [place] [address] Antione Segura PA-C 40 [place], [place] [phone] [email or web address] 03/29/2025 2:00 AM EDT Home Care Visit [facility] [address] [place] [phone] Shakira Hand, HUA [address] [place] [address] 04/05/2025 2:00 AM EDT Home Care Visit [facility] [address] [place] [phone] Shakira Hand RN [address] [place] [address] 04/12/2025 1:30 AM EDT Home Care Visit [facility] [address] [place] [phone] Shakira Hand RN [address] [place] [address] 04/19/2025 12:30 AM EST Home Care Visit [facility] [address] [place] [phone] Shakira Hand, HUA [address] [place] [address] 04/25/2025 Appointment [facility] [address] [place] [phone] Shakira Hand RN [address] [place] [address] 06/25/2025 9:30 AM EST Telemedicine [facility] Neurology [address] [place] [address] Jn Cardoza MD 22 [facility] 2nd [place] [address] documented as of this encounter Visit Diagnoses Not on filedocumented in this encounter Additional Health Concerns Assessment Noted Time PHQ-9 Depression Total Score: 18 023 8:53 AM EST PHQ-2 Depression Total Score: 6 06/26/19 23 8:53 AM EST documented as of this encounter Care Teams Woven Paper Hat Mender Relationship Specialty Start Date End Date Jennifer Duke, CLAIMS EXAMINER [address] [place] [address] PCP - General Family Medicine 01/31/20 06/22/23 Sirisha Huertas FNP [address] [place] [address] [email or web address] PCP - General Nurse Practitioner 06/23/23 08/03/24 Liyah Patterson MD [address] [place] [address] [email or web address] PCP - General Family Medicine 08/04/24 10/11/24 Antione Segura PA-C [address] [place] [address] PCP - General Physician Track Patrol 10/12/24 Lang Germain MD [address] [place] [address] [email or web address] Insurance Assigned Provider 09/18/23 02/19/24 Jn Cardoza MD [address] [place] [address], 2nd [place] [address] Neurology 02/03/24 Denys Henriquez MD [address] [place] [address] [place] [address] Pulmonary Disease 02/03/24 Liyah Patterson MD [address] [place] [address] [email or web address] Insurance Assigned Provider 02/19/24 01/20/25 Rhett Cortez MD [address] [place] [address] [email or web address] Insurance Assigned Provider 01/20/25 documented as of this encounter Additional Source Comments The information contained in this document represents components of the legal health record. It is not the complete legal health record.[facility]
--- OUTSIDE RECORDS SUMMARY | 2025-02-26 20:10 | XMS_ITS | Encounter Summary ---
Author Organization [facility] Address [address] [place] [address] Phone Care Team Providers Care Assistant Program Director Name Role Phone Charbel Webber MD Unavailable Alverto Gandara MD Unavailable [phone] Maikel Rawls MD Unavailable [phone] Lang Germain MD Unavailable Jennifer Duke ASPHALT ROLLER PERSON Primary Care Provider Lang Germain MD Primary Care Provider Jennifer Duke ASPHALT ROLLER PERSON Unavailable [phone] Jennifer Duke ASPHALT ROLLER PERSON Primary Care Provider Lang Germain MD Primary Care Provider Jennifer Duke ASPHALT ROLLER PERSON Primary Care Provider Sirisha Huertas BALL RACKER Primary Care Provider [phone] Jn Cardoza MD Unavailable Denys Henriquez MD Unavailable [phone] Liyah Patterson MD Unavailable Liyah Patterson MD Primary Care Provider Antione Segura PA-C Primary Care Provider [phone] Rhett Cortez MD Unavailable Encounter Details Date Type Department Care Team (Late st Contact Info) Description 03/20/2019 Telephone [facility] [place] [facility] [address] [place] [address] Jennifer Duke, ASPHALT ROLLER PERSON [facility] 6 [place] [address] [email or web address] Social History Tobacco Use Types Packs/Day Years Used Date Smoking Tobacco: Every Day Cigarettes 0.5 43.3 Started: 11/25/1981 Smokeless Tobacco: Current Alcohol Use [...] 1:00 AM EDT Home [facility] Visit [facility] [address] [place], [place] [phone] Shakira Hand RN [address] [place] [address] [email or web address] 03/08/2025 1:00 AM EDT Home Care Visit [facility] [address] [place], [place] [phone] Shakira Hand RN [address] [place] [address] [email or web address] 03/15/2025 Home Care Visit [facility] [address] [place] [phone] Shakira Hand RN [address] [place] [address] 03/22/2025 1:00 AM EDT Home Care Visit [facility] [address] [place] [phone] Shakira Hand RN [address] [place] [address] 03/28/2025 9:40 AM EDT Office Visit [facility] 40 [place] [address] Antione Segura PA-C 40 [place], [place] [phone] [email or web address] 03/29/2025 2:00 AM EDT Home Care Visit [facility] [address] [place] [phone] Shakira Hand, HUA [address] [place] [address] 04/05/2025 2:00 AM EDT Home Care Visit [facility] [address] [place] [phone] Shakira Hand RN [address] [place] [address] 04/12/2025 1:30 AM EDT Home Care Visit [facility] [address] [place] [phone] Shakira Hand, HUA [address] [place] [address] 04/19/2025 12:30 AM EST Home Care Visit [facility] [address] [place] [phone] Shakira Hand RN [address] [place] [address] 04/25/2025 Appointment [facility] [address] [place] [phone] Shakira Hand, HUA [address] [place] [address] 06/25/2025 9:30 AM EST Telemedicine [facility]rology 22 [place] [address] Jn Cardoza MD 22 [facility], 2nd [place] [address] [email or web address] documented as of this encounter Visit Diagnoses Not on filedocumented in this encounter Additional Health Concerns Assessment Noted Time PHQ-2 Depression Total Score: 0 11/18/19 19 2:05 PM EDT documented as of this encounter Care Teams Assistant Program Director Relationship Specialty Start Date End Date Jennifer Duke NP [address] [place] [address] [email or web address] PCP - General Family Medicine 12/14/18 11/12/19 Lang Germain MD 40 [place] [address] PCP - General Internal Medicine 11/13/19 12/03/19 Jennifer Duke NP [address] [place] [address] PCP - General Family Medicine 12/04/19 01/23/20 Lang Germain MD [address] [place] [address] [email or web address] PCP - General Internal Medicine 01/24/20 01/30/20 Jennifer Duke, ASPHALT ROLLER PERSON 40 [place] [address] [email or web address] PCP - General Family Medicine 01/31/20 06/22/23 Sirisha Huertas FNP [address] [address] [email or web address] PCP - General Nurse Practitioner 06/23/23 08/03/24 Liyah Patterson MD [address] [address] [email or web address] PCP - General Family Medicine 08/04/24 10/11/24 Antione Segura PA-C [address] [place] [address] [email or web address] PCP - General Physician Financial Operations Clerk 10/12/24 Charbel Webber MD [address] [place] [address], [address] [place] [address] [email or web address] Historical LMR Provider 04/01/17 0 Alverto Gandara MD 22 [facility], 2nd [place] [address] Historical LMR Provider 04/01/17 12/03/19 Maikel Rawls MD [address] [place] [address] [email or web address] Historical LMR Provider 04/01/17 12/03/19 Lang Germain MD 40 [place] [address] Insurance Assigned Provider 09/18/23 02/19/24 Jennifer Duke NP 40 [place] [address] Nurse Practitioner Family Medicine 11/13/19 01/30/20 Jn Cardoza MD 22 [facility], 2nd [place] [address] Neurology 02/03/24 Denys Henriquez MD [address] [place] [address] [place] [address] Pulmonary Disease 02/03/24 Liyah Patterson MD 15 [facility] [address] [place] [address] Insurance Assigned Provider 02/19/24 01/20/25 Rhett Cortez MD [address] [place] [address] Insurance Assigned Provider 01/20/25 documented as of this encounter Additional Source Comments The information contained in this document represents components of the legal health record. It is not the complete legal health record.[facility]
--- OUTSIDE RECORDS SUMMARY | 2025-02-26 20:10 | XMS_ITS | Encounter Summary ---
Author Organization [facility] Address [address] [address] Phone Care Team Providers Care Steam Box Hand Name Role Phone Jn Cardoza MD Unavailable Denys Henriquez MD Unavailable Antione Segura PA-C Primary Care Provider Rhett Cortez MD Unavailable Reason for Visit * Auth/Cert (Routine) Specialty Diagnoses / Procedures Referred By Dary smith Referred To Contact Referral ID Status Reason Start Date Expiration Date Visits Re quested Visits Authorized [id number] 1 1 Encounter Details Date Type Department Care Team (Late st Contact Info) Description 02/14/2025 Home Care Visit [facility] [address] [place] [phone] Laquita Mchugh, PT [address] [place] [address] [email or web address] TELEPHONE ENCOUNTER Social History Tobacco Use [...] Care Visit [facility] [address] [place] [phone] Shakira Hand RN [address] [place] [phone] [email or web address] 03/08/2025 1:00 AM EDT Home Care Visit [facility] [address] [place] [phone] Shakira Hand RN [address] [place] [phone] [email or web address] 03/15/2025 Home Care Visit [facility] [address] [place] [phone] Shakira Hand RN [address] [place] [phone] [email or web address] 03/22/2025 1:00 AM EDT Home Care Visit [facility] [address] [place] [phone] Shakira Hand RN [address] [place] [address] [email or web address] 03/28/2025 9:40 AM EDT Office Visit [facility] [facility] 40 [place] [address] Antione Segura PA-C [address] [place] [email or web address] 03/29/2025 2:00 AM EDT Home Care Visit [facility] [address] [place] [phone] Shakira Hand RN [address] [place] [address] [email or web address] 04/05/2025 2:00 AM EDT Home Care Visit [facility] [address] [place] [phone] Shakira Hand RN [address] [place] [address] [email or web address] 04/12/2025 1:30 AM EDT Home Care Visit [facility] [address] [place] [phone] Shakira Hand RN [address] [place] [address] [email or web address] 04/19/2025 12:30 AM EST Home Care Visit [facility] [address] [place] [phone] Shakira Hand RN [address] [place] [address] [email or web address] 04/25/2025 Appointment [facility] [address] [place] [phone] Shakira Hand RN [address] [place] [address] [email or web address] 06/25/2025 9:30 AM EST Telemedicine [facility] Neurology [address] [place] [address] Jn Cardoza MD [address] [place] [address], 2nd [place] [address] documented as of this encounter Visit Diagnoses Not on filedocumented in this encounter Additional Health Concerns Assessment Noted Time PHQ-9 Depression Total Score: 15 025 9:44 AM EDT PHQ-2 Depression Total Score: 4 02/01/20 25 9:44 AM EDT documented as of this encounter Care Teams Steam Box Hand Relationship Specialty Start Date End Date Antione Segura PA-C 40 [place] [address] PCP - General Physician Wastewater Plant Civil Engineer 10/12/24 Jn Cardoza MD [address] [place] [address], 2nd [place] [address] Neurology 02/03/24 Denys Henriquez MD [address] [place] [address] [place] [address] Pulmonary Disease 02/03/24 Rhett Cortez MD [address] [place] [address] [email or web address] Insurance Assigned Provider 01/20/25 documented as of this encounter Additional Source Comments The information contained in this document represents components of the legal health record. It is not the complete legal health record.[facility]
--- OUTSIDE RECORDS SUMMARY | 2025-02-26 20:10 | XMS_ITS | Clinical Summary ---
Author Organization [facility] Address [address] [id number] Care Team Providers Care Board Filler Name Role Phone Antione Segura Primary Care Provider [phone] Allergies Active Allergy Reactions Criticality Noted Date Comments Adhesive Rash Medium 05/04/2017 Iodinated Contrast Media Hives 05/04/2017 Latex, Natural Rubber Rash Low 05/04/2017 Procaine Hives 02/11/2000 Hives-novacaine Medications albuterol (PROAIR HFA,VENTOLIN HFA) 90 mcg inhaler Inhale 2 puffs by mouth every 4 hours as needed. 5 Active ARIPiprazole (ABILIFY) 5 mg tablet Take 5 mg by mouth daily. 5 Active atorvastatin (LIPITOR) 80 mg tablet Take 80 mg by mouth daily. 5 Active baclofen (LIORESAL) 10 mg tablet Take 20 mg by mouth 3 times a day. 5 Active butalbital-acetam inophen-caffeine (FIORICET) 50-325-40 mg tablet Take 1 tablet by mouth every 6 hours as needed for migraine. 5 Active calcium carbonate-vitamin D3 600 mg-5 mcg (200 unit) per tablet Take 1 tablet by mouth daily. [address] (CYMBALTA) 60 mg capsule Take 60 mg by mouth 2 times daily. 4 Active furosemide (LASIX) 20 mg tablet Take 20 mg by mouth once a day. 5 Active oxyCODONE IR (ROXICODONE) 5 mg tablet Take 5 mg by mouth every 12 hours as needed. 5 Active hyoscyamine (ANASPAZ,LEVSIN) 0.125 mg tablet Take 0.125 mg by mouth every 6 hours as needed for cramping or diarrhea. Active ipratropium-albut Beryl (DUO-NEB) 0.5-2.5 mg/3 mL nebulizer solution Inhale 3 mL via nebulizer every 4 hours as needed for shortness of breath. Active LORazepam (ATIVAN) 0.5 mg tablet Take 0.5 mg by mouth 2 times daily as needed. Active OXcarbazepine (TRILEPTAL) 300 mg tablet Take 450 mg by mouth 2 times daily. Active prazosin (MINIPRESS) 2 mg capsule Take 2 mg by mouth daily. Active predniSONE (DELTASONE) 50 mg tablet Take 50 mg by mouth once a day. Active verapamiL (CALAN) 120 mg tablet Take 120 mg by mouth 2 (two) times a day. Active valsartan (DIOVAN) 40 mg tablet Take 40 mg by mouth once a day. Active gabapentin (NEURONTIN) 300 mg capsule Take 1,200 mg by mouth 3 times daily. Active omeprazole (PriLOSEC) 20 mg capsule Take 20 mg by mouth daily. Active aspirin chewable tablet 81 mg Chew and swallow 81 mg by mouth once a day. Active ensifentrine 3 mg/2.5 mL suspension for nebulization Inhale 3 mg by mouth 2 times a day. 150 mL 3 Active budesonide-glycop yr-formoterol (Breztri Aerosphere) 160-9-4.8 mcg/actuation HFA aerosol inhaler Inhale 2 puffs by mouth 2 times a day. 10.7 g 5 Active Active Problems Problem Noted Date Diagnosed Date [...] Type Department Care Team Description 01/29/2025 Telephone [facility] [address] [place] [address] Agile Developer: Federico Hill Telephone Intake, Staff PAC Order Request; Dr. 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 Procedure Name Priority Date/Time Associated Diagnosis Comments LAB - SCANNED 01/10/2025 AMB EXTERNAL XR CHEST, OUTSI DE RESULT 01/04/2025 AMB EXTERNAL ANGIOGRAM, OUTS YUN RESULT 12/21/[address] CHEST, OUTSI DE RESULT 11/30/2024 from Last 3 Months Results * Due to [place] [employer] law, this organization might not be sharing [...] Final Result from Last 3 Months Insurance [facility] HMO/POS Care Teams Board Filler Relationship Specialty Start Date End Date Antione Segura PA [address] [place] [address] PCP - General Emergency Medicine 01/10/25
--- OUTSIDE RECORDS SUMMARY | 2025-02-26 20:10 | XMS_ITS | Encounter Summary ---
Author Organization [facility] Address [address] [address] Phone Care Team Providers Care Food And Nutrition Professor Name Role Phone Jn Cardoza MD Unavailable Denys Henriquez MD Unavailable Antione Segura PA-C Primary Care Provider Rhett Cortez MD Unavailable Encounter Details Date Type Department Care Team (Late st Contact Info) Description 02/09/2025 Home Health Resumption of Care Planning [facility] [address] [place] [phone] Koki Simons RN [address] [place] [address] [email or web address] Social History Tobacco Use Types Packs/Day Years [...] high school, GED, job training, learning the Lebanese language, technical skills, or developing parenting skills)? [...] Care Visit [facility] [address] [place] [phone] Shakira Hand RN [address] [place] [address] [email or web address] 03/08/2025 1:00 AM EDT Home [facility] Visit [facility] [address] [place] [phone] Shakira Hand RN [address] [place] [address] 03/15/2025 Home Care Visit [facility] [address] [place] [phone] Shakira Hand RN [address] [place] [address] 03/22/2025 1:00 AM EDT Home Care Visit [facility] [address] [place] [phone] Shakira Hand RN [address] [place] [address] 03/28/2025 9:40 AM EDT Office Visit [facility] [address] [place] [address] Antione Segura PA-C [address] [place], [place] [phone] 03/29/2025 2:00 AM EDT Home Care Visit [facility] [address] [place] [phone] Shakira Hand, HUA [address] [place] [address] 04/05/2025 2:00 AM EDT Home Care Visit [facility] [address] [place] [phone] Shakira Hand RN [address] [place] [address] 04/12/2025 1:30 AM EDT Home Care Visit [facility] [address] [place] [phone] Shakira Hand RN [address] [place] [address] 04/19/2025 12:30 AM EST Home Care Visit [facility] [address] [place] [phone] Shakira Hand, HUA [address] [place] [address] 04/25/2025 Appointment [facility] [address] [place] [phone] Shakira Hand RN [address] [place] [address] 06/25/2025 9:30 AM EST Telemedicine [facility] Neurology [address] [place] [address] Jn Cardoza MD 22 [facility] 2nd [place] [address] documented as of this encounter Visit Diagnoses Not on filedocumented in this encounter Additional Health Concerns Assessment Noted Time PHQ-9 Depression Total Score: 15 025 9:44 AM EDT PHQ-2 Depression Total Score: 4 02/01/20 25 9:44 AM EDT documented as of this encounter Care Teams Food And Nutrition Professor Relationship Specialty Start Date End Date Antione Segura PA-C [address] [place] [address] PCP - General Physician Early Childhood Teacher Assistant 10/12/24 Jn Cardoza MD 22 [facility], 2nd [place] [address] Neurology 02/03/24 Denys Henriquez MD [address] [place] [address] [place] [address] Pulmonary Disease 02/03/24 Rhett Cortez MD [address] [place] [address] [email or web address] Insurance Assigned Provider 01/20/25 documented as of this encounter Additional Source Comments The information contained in this document represents components of the legal health record. It is not the complete legal health record.[facility]
--- OUTSIDE RECORDS SUMMARY | 2025-02-26 20:10 | XMS_ITS | Encounter Summary ---
Author Organization [facility] Address [address] [place] [address] Phone Care Team Providers Care Extrusion Bender Name Role Phone Jn Cardoza MD Unavailable Denys Henriquez MD Unavailable Antione Segura PA-C Primary Care Provider Rhett Cortez MD Unavailable Encounter Details Date Type Department Care Team (Late st Contact Info) Description 02/23/2025 Plan of Care Documentation [facility] [address] [place] [phone] Social History Tobacco Use Types Packs/Day Years [...] high school, GED, job training, learning the Indonesian language, technical skills, or developing parenting skills)? [...] Care Visit [facility] [address] [place] [phone] Shakira Hand RN [address] [place] [address] 03/08/2025 1:00 AM EDT Home Care Visit [facility] [address] [place] [phone] Shakira Hand RN [address] [place] [address] 03/15/2025 Home Care Visit [facility] [address] [place] [phone] Shakira Hand RN [address] [place] [address] 03/22/2025 1:00 AM EDT Home Care Visit [facility] [address] [place] [phone] Shakira Hand RN [address] [place] [address] 03/28/2025 9:40 AM EDT Office Visit [facility] [address] [place] [address] Antione Segura PA-C [address] [place], [place] [phone] 03/29/2025 2:00 AM EDT Home Care Visit [facility] [address] [place] [phone] Shakira Hand, HUA [address] [place] [address] 04/05/2025 2:00 AM EDT Home Care Visit [facility] [address] [place] [phone] Shakira Hand RN [address] [place] [address] 04/12/2025 1:30 AM EDT Home Care Visit [facility] [address] [place] [phone] Shakira Hand RN [address] [place] [address] 04/19/2025 12:30 AM EST Home Care Visit [facility] [address] [place] [phone] Shakira Hand, HUA [address] [place] [address] 04/25/2025 Appointment [facility] [address] [place] [phone] Shakira Hand, HUA [address] [place] [address] 06/25/2025 9:30 AM EST Telemedicine [facility] Neurology [address] [place] [address] Jn Cardoza MD 22 [facility], [address] [place] [address] documented as of this encounter Visit Diagnoses Not on filedocumented in this encounter Additional Health Concerns Assessment Noted Time PHQ-9 Depression Total Score: 15 025 9:44 AM EDT PHQ-2 Depression Total Score: 4 02/01/20 25 9:44 AM EDT documented as of this encounter Care Teams Extrusion Bender Relationship Specialty Start Date End Date Antione Segura PA-C [address] [place] [address] [email or web address] PCP - General Physician Chief Merchandising Officer 10/12/24 Jn Cardoza MD 22 [facility], 2nd [place] [address] Neurology 02/03/24 Denys Henriquez MD [address] [place] [address] [place] [address] Pulmonary Disease 02/03/24 Rhett Cortez MD [address] [place] [address] [email or web address] Insurance Assigned Provider 01/20/25 documented as of this encounter Additional Source Comments The information contained in this document represents components of the legal health record. It is not the complete legal health record.[facility]
--- OUTSIDE RECORDS SUMMARY | 2025-02-26 20:10 | XMS_ITS | Encounter Summary ---
Author Organization [facility] Address [address] [facility] [address] [place] [address] Phone Care Team Providers Care Livestock Farm Workers Name Role Phone Jn Cardoza MD Unavailable Denys Henriquez MD Unavailable Antione Segura PA-C Primary Care Provider [phone] Rhett Cortez MD Unavailable Encounter Details Date Type Department Care Team (Late st Contact Info) Description 02/21/2025 Episode Documentatio n Update [facility] [address] [place] [phone] Margy Rubalcava [address] [place] [address] [email or web address] Social History Tobacco Use Types [...] Care Visit [facility] [address] [place] [phone] Shakira Hand RN [address] [place] [address] 03/08/2025 1:00 AM EDT Home [facility] Visit [facility] [address] [place] [phone] Shakira Hand RN [address] [place] [address] 03/15/2025 Home Care Visit [facility] [address] [place] [phone] Shakira Hand RN [address] [place] [address] 03/22/2025 1:00 AM EDT Home [facility] Visit [facility] [address] [place] [phone] Shakira Hand RN [address] [place] [address] 03/28/2025 9:40 AM EDT Office Visit [facility] [place] [facility] [address] [place], [place] [phone] Antione Segura PA-C 40 [place] [address] 03/29/2025 2:00 AM EDT Home Care Visit [facility] [address] [place] [phone] Shakira Hand RN [address] [place] [address] 04/05/2025 2:00 AM EDT Home Care Visit [facility] [address] [place] [phone] Shakira Hand RN [address] [place] [address] 04/12/2025 1:30 AM EDT Home Care Visit [facility] [address] [place] [phone] Shakira Hand RN [address] [place] [address] 04/19/2025 12:30 AM EST Home Care Visit [facility] [address] [place] [phone] Shakira Hand RN [address] [place] [address] 04/25/2025 Appointment [facility] [address] [place] [phone] Shakira Hand RN [address] [place] [address] 06/25/2025 9:30 AM EST Telemedicine [facility] Neurology [address] [place] [address] Jn Cardoza MD 22 [facility], 2nd [place] [address] documented as of this encounter Visit Diagnoses Not on filedocumented in this encounter Additional Health Concerns Assessment Noted Time PHQ-9 Depression Total Score: 15 025 9:44 AM EDT PHQ-2 Depression Total Score: 4 02/01/20 25 9:44 AM EDT documented as of this encounter Care Teams Livestock Farm Workers Relationship Specialty Start Date End Date Antione Segura PA-C [address] [place] [address] PCP - General Physician Pin Sorter And Bagger 10/12/24 nJ Cardoza MD 22 [facility], 2nd [place] [address] Neurology 02/03/24 Denys Henriquez MD [address] [place] [address] [place] [address] Pulmonary Disease 02/03/24 Rhett Cortez MD [address] [place] [address] Insurance Assigned Provider 01/20/25 documented as of this encounter Additional Source Comments The information contained in this document represents components of the legal health record. It is not the complete legal health record.[facility]
--- OUTSIDE RECORDS SUMMARY | 2025-02-26 20:10 | XMS_ITS | Encounter Summary ---
Author Organization [facility] Address [address] [place] [address] Phone Care Team Providers Care Grading Machine Feeder Name Role Phone Charbel Webber MD Unavailable Alverto Gandara MD Unavailable Maikel Rawls MD Unavailable [phone] Jennifer Duke EPOXY FABRICATION SUPERVISOR Primary Care Provider Lang Germain MD Primary Care Provider Jennifer Duke EPOXY FABRICATION SUPERVISOR Primary Care Provider Lang Germain MD Unavailable Lang Germain MD Primary Care Provider Jennifer Duke EPOXY FABRICATION SUPERVISOR Primary Care Provider Lang Germain MD Primary Care Provider Jennifer Duke EPOXY FABRICATION SUPERVISOR Primary Care Provider Lang Germain MD Primary Care Provider Jennifer Duke EPOXY FABRICATION SUPERVISOR Primary Care Provider Lang Germain MD Primary Care Provider [place], Jennifer L EPOXY FABRICATION SUPERVISOR Unavailable [phone] Jennifer Duke EPOXY FABRICATION SUPERVISOR Primary Care Provider [phone] Lang Germain MD Primary Care Provider [phone] Jennifer Duke EPOXY FABRICATION SUPERVISOR Primary Care Provider [phone] Sirisha Huertasis TABLE HAND Primary Care Provider [phone] Jn Cardoza MD Unavailable Denys Henriquez MD Unavailable [phone] Liyah Patterson MD Unavailable Liyah Patterson MD Primary Care Provider [phone] Antione Segura PA-C Primary Care Provider [phone] Rhett Cortez MD Unavailable Encounter Details Date Type Department Care Team (Late st Contact Info) Description 09/13/2018 Procedure Pass [facility], [address] [address] Social History Tobacco Use Types Packs/Day Years [...] 03/01/2025 1:00 AM EDT [facility] [address] [place] [phone] Shakira Hand, HUA [address] [place] [address] 03/08/2025 1:00 AM EDT [facility] [address] [place] [phone] Shakira Hand RN [address] [place] [address] 03/15/2025 Home Care Visit [facility] [address] [place] [address] Shakira Hand RN [address] [place] [address] 03/22/2025 1:00 AM EDT Home Care Visit [facility] [address] [place] [phone] Shakira Hand RN [address] [place] [address] 03/28/2025 9:40 AM EDT Office Visit [facility] [place] [facility] [address] [place] [address] Antione Segura PA-C 40 [place] [address] 03/29/2025 2:00 AM EDT [facility] [address] [place] [address] Shakira Hand RN [address] [place] [address] 04/05/2025 2:00 AM EDT Home Care Visit [facility] [address] [place] [address] Shakira Hand RN [address] [place] [address] 04/12/2025 1:30 AM EDT Home Care Visit [facility] [address] [place], [place] [phone] Shakira Hand RN [address] [place] [address] 04/19/2025 12:30 AM EST Home Care Visit [facility] [address] [place] [address] Shakira Hand RN [address] [place] [address] 04/25/2025 Appointment [facility] [address] [place] [address] Shakira Hand RN [address] [place] [address] 06/25/2025 9:30 AM EST Telemedicine [facility] Neurology [address] [place] [address] Jn Cardoza MD 22 [facility], 2nd [place] [address] [email or web address] documented as of this encounter Visit Diagnoses Not on filedocumented in this encounter Additional Health Concerns Assessment Noted Time PHQ-2 Depression Total Score: 0 08/20/19 19 9:13 AM EST documented as of this encounter Care Teams Grading Machine Feeder Relationship Specialty Start Date End Date Jennifer Duke NP [address] [place] [address] PCP - General Family Medicine 09/08/18 09/14/18 Lang Germain MD [address] [place] [address] PCP - General Internal Medicine 09/15/18 10/02/18 Jennifer Duke NP [address] [place] [address] [email or web address] PCP - General Family Medicine 10/03/18 10/05/18 Lang Germain MD [address] [place] [address] [email or web address] PCP - General Internal Medicine 10/06/18 10/12/18 Jennifer Duke NP [address] [place] [address] [email or web address] PCP - General Family Medicine 10/13/18 11/09/18 Lang Germain MD [address] [place] [address] [email or web address] PCP - General Internal Medicine 11/10/18 11/22/18 Jennifer Duke NP [address] [place] [address] [email or web address] PCP - General Family Medicine 11/23/18 11/30/18 Lang Germain MD [address] [place] [address] [email or web address] PCP - General Internal Medicine 12/01/18 12/13/18 Jennifer Duke NP [address] [place] [address] [email or web address] PCP - General Family Medicine 12/14/18 11/12/19 Lang Germain MD [address] [place] [address] [email or web address] PCP - General Internal Medicine 11/13/19 12/03/19 Jennifer Duke, EPOXY FABRICATION SUPERVISOR [address] [place] [address] [email or web address] PCP - General Family Medicine 12/04/19 01/23/20 Lang Germain MD [address] [place] [address] [email or web address] PCP - General Internal Medicine 01/24/20 01/30/20 Jennifer Duke EPOXY FABRICATION SUPERVISOR [address] [place] [address] [email or web address] PCP - General Family Medicine 01/31/20 06/22/23 Sirisha Huertas FNP [address] [place] [address] [email or web address] PCP - General Nurse Practitioner 06/23/23 08/03/24 Liyah Patterson MD [address] [place] [address] [email or web address] PCP - General Family Medicine 08/04/24 10/11/24 Antione Segura PA-C [address] [place] [address] [email or web address] PCP - General Physician Last Waxer 10/12/24 Charbel Webber MD 22 [facility], [address] [place] [address] [email or web address] Historical LMR Provider 04/01/17 0 Alverto Gandara MD 22 [facility], 2nd [place] [address] Historical LMR Provider 04/01/17 12/03/19 Maikel Rawls MD [address] [address] [email or web address] Historical LMR Provider 04/01/17 12/03/19 Lang Germain MD [address] [place] [address] [email or web address] Insurance Assigned Provider 09/18/23 02/19/24 Jennifer Duke NP [address] [place] [address] [email or web address] Nurse Practitioner Family Medicine 11/13/19 01/30/20 Jn Cardoza MD 22 [facility], [address] [place] [address] Neurology 02/03/24 Denys Henriquez MD [address] [place] [address] [place] [address] Pulmonary Disease 02/03/24 Liyah Patterson MD 15 [facility] [address] [place] [address] [email or web address] Insurance Assigned Provider 02/19/24 01/20/25 Rhett Cortez MD [address] [place] [address] [email or web address] Insurance Assigned Provider 01/20/25 documented as of this encounter Additional Source Comments The information contained in this document represents components of the legal health record. It is not the complete legal health record.[facility]
--- OUTSIDE RECORDS SUMMARY | 2025-02-26 20:10 | XMS_ITS | Encounter Summary ---
Author Organization [facility] Address [address] [place] [address] Phone Care Team Providers Care Director Of Partnerships Name Role Phone Charbel Webber MD Unavailable Alverto Gandara MD Unavailable Maikel Rawls MD Unavailable [phone] Lang Germain MD Primary Care Provider Jennifer Duke ANNEALER Primary Care Provider Lang Germain MD Primary Care Provider Jennifer Duke ANNEALER Primary Care Provider Lang Germain MD Primary Care Provider Jennifer Duke ANNEALER Primary Care Provider Lang Germain MD Unavailable Lang Germain MD Primary Care Provider Jennifer Duke ANNEALER Primary Care Provider Lang Germain MD Primary Care Provider Jennifer Duke ANNEALER Primary Care Provider Lang Germain MD Primary Care Provider [phone] Jennifer Duke ANNEALER Primary Care Provider [phone] Lang Germain MD Primary Care Provider [phone] Jennifer Duke ANNEALER Unavailable [phone] Jennifer Duke ANNEALER Primary Care Provider [phone] Lang Germain MD Primary Care Provider [phone] Jennifer Duke ANNEALER Primary Care Provider [phone] Aleksandar Sirishafrancisca Kendall REFRIGERATION SERVICE INSPECTOR Primary Care Provider [phone] Jn Cardoza MD Unavailable Denys Henriquez MD Unavailable [phone] Liyah Patterson MD Unavailable Liyah Patterson MD Primary Care Provider [phone] Antione Segura PA-C Primary Care Provider [phone] Rhett Cortez MD Unavailable Reason for Referral * MRI/CAT Scan - Closed Specialty Diagnoses / Procedures Referred By Contac t Referred To Contact Procedures CT Head Outside (No Interpretation) System, Provider Not In, PhD [address] [address] Referral ID Status Reason Start Date Expiration Date Visits Re quested Visits Authorized [id number] Closed 06/20/2018 06/20/2019 1 1 * MRI/CAT Scan - Closed Specialty Diagnoses / Procedures Referred By Contac t Referred To Contact Procedures CT Face Outside (No Interpretation) System, Provider Not In, PhD [address] [address] Referral ID Status Reason Start Date Expiration Date Visits Re quested Visits Authorized [id number] Closed 06/20/2018 06/20/2019 1 1 Encounter Details Date Type Department Care Team (Late st Contact Info) Description 06/20/2018 Ancillary Orders [facility],Outside Imaging [address] [place] [address] System, Provider Not In, [place] [address] Social History Tobacco Use Types Packs/Day Years [...] Care Visit [facility] [address] [place] [phone] Shakira Hand RN [address] [place] [address] 03/08/2025 1:00 AM EDT Home Care Visit [facility] [address] [place] [phone] Shakira Hand RN [address] [place] [address] 03/15/2025 Home Care Visit [facility] [address] [place] [phone] Shakira Hand RN [address] [place] [address] 03/22/2025 1:00 AM EDT Home Care Visit [facility] [address] [place] [phone] Shakira Hand RN [address] [place] [address] 03/28/2025 9:40 AM EDT Office Visit [facility] [address] [place] [address] Antione Segura PA-C [address] [place] [address] 03/29/2025 2:00 AM EDT Home Care Visit [facility] [address] [place] [phone] Shakira Hand, HUA [address] [place] [address] 04/05/2025 2:00 AM EDT Home Care Visit [facility] [address] [place] [phone] Shakira Hand RN [address] [place] [address] 04/12/2025 1:30 AM EDT Home Care Visit [facility] [address] [place] [phone] Shakira Hand, HUA [address] [place] [address] 04/19/2025 12:30 AM EST Home Care Visit [facility] [address] [place] [phone] Shakira Hand, HUA [address] [place] [address] 04/25/2025 Appointment [facility] [address] [place] [phone] Shakira Hand RN [address] [place] [address] 06/25/2025 9:30 AM EST Telemedicine [facility] Neurology [address] [place] [phone] Jn Cardoza MD [address] [place] [address], 2nd [place] [address] [email or web address] documented as of this encounter Results * [...] documented as of this encounter Care Teams Director Of Partnerships Relationship Specialty Start Date End Date Lang Germain MD [address] [place] [address] [email or web address] PCP - General Internal Medicine 06/13/18 06/30/18 Jennifer Duke NP [address] [place] [address] [email or web address] PCP - General Family Medicine 07/01/18 08/02/18 Lang Germain MD [address] [place] [address] [email or web address] PCP - General Internal Medicine 08/03/18 09/07/18 Jennifer Duke NP [address] [place] [address] [email or web address] PCP - General Family Medicine 09/08/18 09/14/18 Lang Germain MD [address] [place] [address] [email or web address] PCP - General Internal Medicine 09/15/18 10/02/18 Jennifer Duke NP [address] [place] [address] [email or web address] PCP - General Family Medicine 10/03/18 10/05/18 Lang Germain MD [address] [place] [address] [email or web address] PCP - General Internal Medicine 10/06/18 10/12/18 Jennifer Duke NP [address] [place] [address] [email or web address] PCP - General Family Medicine 10/13/18 11/09/18 Lang Germain MD [address] [place] [address] [email or web address] PCP - General Internal Medicine 11/10/18 11/22/18 Jennifer Duke NP [address] [place] [address] [email or web address] PCP - General Family Medicine 11/23/18 11/30/18 Lang Germain MD [address] [place] [address] [email or web address] PCP - General Internal Medicine 12/01/18 12/13/18 Jennifer Duke NP [address] [place] [address] [email or web address] PCP - General Family Medicine 12/14/18 11/12/19 Lang Germain MD [address] [place] [address] [email or web address] PCP - General Internal Medicine 11/13/19 12/03/19 Jennifer Duke NP [address] [place] [address] [email or web address] PCP - General Family Medicine 12/04/19 01/23/20 Lang Germain MD [address] [place] [address] [email or web address] PCP - General Internal Medicine 01/24/20 01/30/20 Jennifer Duke NP [address] [place] [address] [email or web address] PCP - General Family Medicine 01/31/20 06/22/23 Sirisha Huertas FNP [address] [place] [address] [email or web address] PCP - General Nurse Practitioner 06/23/23 08/03/24 Liyah Patterson MD [address] [address] [email or web address] PCP - General Family Medicine 08/04/24 10/11/24 Antione Segura PA-C [address] [place] [address] [email or web address] PCP - General Physician Rn Post Partum 10/12/24 Charbel Webber MD [address] [facility], [address] [place] [address] [email or web address] Historical LMR Provider 04/01/17 0 Alverto Gandara MD [address] [facility], 2nd [place] [address] [email or web address] Historical LMR Provider 04/01/17 12/03/19 Maikel Rawls MD [address] [place] [address] [email or web address] Historical LMR Provider 04/01/17 12/03/19 Lang Germain MD [address] [place] [address] [email or web address] Insurance Assigned Provider 09/18/23 02/19/24 Jennifer Duke, ANNEALER [address] [place] [address] Nurse Practitioner Family Medicine 11/13/19 01/30/20 Jn Cardoza MD [address] [facility], 2nd [place] [address] Neurology 02/03/24 Denys Henriquez MD [address] [place] [address] [place] [address] Pulmonary Disease 02/03/24 Liyah Patterson MD [address] [facility] [address] [place] [address] Insurance Assigned Provider 02/19/24 01/20/25 Rhett Cortez MD [address] [place] [address] Insurance Assigned Provider 01/20/25 documented as of this encounter Additional Source Comments The information contained in this document represents components of the legal health record. It is not the complete legal health record.[facility]
== END 2025-02-26 15:37 | disposition home or self-care (01) ==
LOC: HO.HCS 14:42
PROVIDERS: PCP Registered Nurse; Visit Provider Nurse Practitioner Family
DX: I50.32 Chronic diastolic (congestive) heart failure (principal); J98.4 Other disorders of lung; J96.01 Acute respiratory failure with hypoxia; I35.0 Nonrheumatic aortic (valve) stenosis; I10 Essential (primary) hypertension; Z09 Encounter for follow-up examination after completed treatment for conditions other than malignant neoplasm
CPT/HCPCS: 99214

== ENCOUNTER 2025-03-01 14:27 | Inpatient (IN) | payer BC, SELFPAY ==
--- OUTSIDE RECORDS SUMMARY | 2024-12-27 15:00 | XMS_ITS | Encounter Summary ---
Author Organization [facility] Address [address] [address] Phone Care Team Providers Care Solutions Manager Name Role Phone Jn Cardoza MD Unavailable Denys Henriquez MD Unavailable Liyha Patterson MD Unavailable Antione SeguraC Primary Care Provider Rhett Cortez MD Unavailable Reason for Visit * Auth/Cert (Routine) Specialty Diagnoses / Procedures Referred By Dary smith Referred To Contact Referral ID Status Reason Start Date Expiration Date Visits Re quested Visits Authorized [id number] 1 1 Encounter Details Date Type Department Care Team (Late st Contact Info) Description 12/27/2024 3:00 PM EDT Home Care Visit [facility] [address] [place] [phone] Shakira Hand RN [address], [place] [phone] [email or web address] SN OASIS START OF CARE (SOC) Social [...] high school, GED, job training, learning the Malaysian language, technical skills, or developing parenting skills)? [...] Care Team (Late st Contact Info) Description 03/08/2025 1:00 AM EDT Home Care Visit [facility] [address] [place] [address] Shakira Hand RN [address] [place] [address] [email or web address] 03/15/2025 Home Care Visit [facility] [address] [place] [address] Shakira Hand RN [address] [place] [address] [email or web address] 03/22/2025 1:00 AM EDT Home Care Visit [facility] [address] [place] [address] Shakira Hand RN [address] [place] [address] [email or web address] 03/28/2025 9:40 AM EDT Office Visit [facility] [address] [place] [address] Antione Segura PA-C [address] [place] [address] [email or web address] 03/29/2025 2:00 AM EDT Home Care Visit [facility] [address] [place] [phone] Shakira Hand RN [address] [place] [address] [email or web address] 04/05/2025 2:00 AM EDT Home Care Visit [facility] [address] [place] [phone] Shakira Hand RN [address] [place] [address] [email or web address] 04/12/2025 1:30 AM EDT Home Care Visit [facility] [address] [place] [phone] Shakira Hand, HUA [address] [place] [address] [email or web address] 04/19/2025 12:30 AM EST Home Care Visit [facility] [address] [place] [phone] Shakira Hand RN [address] [place] [address] [email or web address] 04/25/2025 Appointment [facility] [address] [place] [phone] Shakira Hand, HUA [address] [place] [address] [email or web address] 06/25/2025 9:30 AM EST Telemedicine [facility] [address] [place] [address] Jn Cardoza MD 22 [facility], [address] [place] [address] [email or web address] documented as of this encounter Visit Diagnoses Not on filedocumented in this encounter Additional Health Concerns Assessment Noted Time PHQ-9 Depression Total Score: 20 025 9:08 PM EDT PHQ-2 Depression Total Score: 6 12/28/19 25 9:08 PM EDT documented as of this encounter Home Health Visit - Care Plan Visit Details Visit Type -SN OASIS START O F CARE (SOC) Discipline -Fdc Problems Problem Description Start Date Status Goals Interve ntions HH - Medication Management Disciplines: All Active Home Health Disciplines, Fdc 12/27/2024 Active 1 goal linked to scheduled/document [...] teaching completed and plan for next visit Problem:HH - Focus of Care and Teaching Goal:HH - Communication and collaboration to achieve patient goals Completed Primary Clinical Focus this Visit & Instruction Provided: PT DISCHARGED FROM [facility] ON 12/20 AND PRESENTED BACK TO [facility] ED ON 12/21 WORSENING SOB, PRODUCTIVE COUGH, [...] EDEMA. COUGH PERSISTENT. 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 DISCUSSED POSSIBLY HAVING HER SWITCH TO PREPACKAGED BLISTER PACKS. SHE EXPRESSED HESITANCE SOMETIMES HER MEDICATION DOSES CHANGE. SHE WILL FOLLOW UP WITH HER PCP OFFICE TOMMOROW. 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 HER IS THE CAREGIVER BUT CANNOT ALWAYS [...] an emergency related situation. Completed HH - Emergency planning assessment: the emergency plan, [...] orthostatic vital signs Description: use agency-specific parameters Problem:HH - Standard of Care Goal:HH - Achieve care management for a safe to home/community discharge from homecare Completed HH - Assess skin integrity Problem:HH - Standard of Care Goal:HH - Achieve care management for a safe to home/community discharge from homecare Completed documented in this encounter Care Teams Solutions Manager Relationship Specialty Start Date End Date Antione Segura PA-C [address] [place] [phone] PCP - General Physician Area Supervisor 10/12/24 Jn Cardoza MD 22 [facility], [address] [place] [address] Neurology 02/03/24 Denys Henriquez MD [address] [place] [address] [place] [address] Pulmonary Disease 02/03/24 Liyah Patterson MD [address] [place] [address] [address]hash. [address] [place] [address] [email or web address] Insurance Assigned Provider 02/19/24 01/20/25 Rhett Cortez MD [address] [place] [phone] [email or web address] Insurance Assigned Provider 01/20/25 documented as of this encounter Additional Source Comments The information contained in this document represents components of the legal health record. It is not the complete legal health record.[facility]
--- OUTSIDE RECORDS SUMMARY | 2025-02-12 12:30 | XMS_ITS | Encounter Summary ---
Author Organization [facility] Address [address] [place] [address] Phone Care Team Providers Care Mud Plant Operator Name Role Phone Jn Cardoza MD Unavailable Denys Henriquez MD Unavailable Antione Segura PA-C Primary Care Provider Rhett Cortez MD Unavailable Reason for Visit * Auth/Cert (Routine) Specialty Diagnoses / Procedures Referred By Dary smith Referred To Contact Referral ID Status Reason Start Date Expiration Date Visits Re quested Visits Authorized [id number] 1 1 Encounter Details Date Type Department Care Team (Late st Contact Info) Description 02/12/2025 12:30 PM EDT Home Care Visit [facility] 30 [place] [phone] Shakira Hand, HUA [address] [place] [address] [email or web address] SN OASIS RESUMPTION OF CARE (VERONIKA) Social [...] high school, GED, job training, learning the Turkmen language, technical skills, or developing parenting skills)? [...] 03/08/2025 1:00 AM EDT Home Care Visit [facility] [address] [place] [address] Shakira Hand, HUA [address] [place] [address] 03/15/2025 Home Care Visit [facility] [address] [place] [address] Shakira Hand RN [address] [place] [address] 03/22/2025 1:00 AM EDT Home Care Visit [facility] [address] [place] [address] Shakira Hand, HUA [address] [place] [phone] 03/28/2025 9:40 AM EDT Office Visit [facility] 40 [place] [address] Antione Segura PA-C 40 [place] [address] 03/29/2025 2:00 AM EDT Home Care Visit [facility] [address] [place] [phone] Shakira Hand, HUA [address] [place] [address] 04/05/2025 2:00 AM EDT Home Care Visit [facility] [address] [place] [phone] hSakira Hand RN [address] [place] [address] 04/12/2025 1:30 AM EDT Home Care Visit [facility] [address] [place] [phone] Shakira Hand, HUA [address] [place] [address] 04/19/2025 12:30 AM EST Home Care Visit [facility] [address] [place] [phone] Shakira Hand RN [address] [place] [address] 04/25/2025 Appointment [facility] [address] [place] [phone] Shakira Hand RN [address] [place] [address] 06/25/2025 9:30 AM EST Telemedicine [facility] Neurology 22 [place] [address] Jn Cardoza MD 22 [facility], 2nd [place] [address] [email or web address] documented as of this encounter Visit Diagnoses Not on filedocumented in this encounter Additional Health Concerns Assessment Noted Time PHQ-9 Depression Total Score: 15 025 9:44 AM EDT PHQ-2 Depression Total Score: 4 02/01/20 25 9:44 AM EDT documented as of this encounter Home Health Visit - Care Plan Visit Details Visit Type -SN OASIS RESUMPT ION OF CARE Discipline -Penitentiary Problems Problem Description Start Date Status Goals Interve ntions HH - Medication Management Disciplines: All Active Home Health Disciplines, Penitentiary 12/27/2024 Active 1 goal linked to scheduled/document [...] visit HH - Resumption of Care Disciplines: Penitentiary 02/12/2025 Active - 1 problem intervention scheduled/document [...] PREDNISONE TAPER. WILL BE FOLLOWING UP HER PIPING DESIGNER WITHN T COUPLE WEEKS AND PCP THIS [...] Scheduled documented in this encounter Care Teams Mud Plant Operator Relationship Specialty Start Date End Date Antione Segura PA-C [address] [place] [email or web address] PCP - General Physician Dedicated Driver 10/12/24 Jn Cardoza MD [address] [place] [address], 2nd [place] [address] Neurology 02/03/24 Denys Henriquez MD [address] [place] [address] [place] [address] Pulmonary Disease 02/03/24 Rhett Cortez MD [address] [place] [phone] Insurance Assigned Provider 01/20/25 documented as of this encounter Additional Source Comments The information contained in this document represents components of the legal health record. It is not the complete legal health record.[facility]
--- OUTSIDE RECORDS SUMMARY | 2025-02-23 11:30 | XMS_ITS | Encounter Summary ---
Author Organization [facility] Address [address] [place] [address] Phone Care Team Providers Care Breastfeeding Peer Counselor Name Role Phone Jn Cardoza MD Unavailable Denys Henriquez MD Unavailable Antione Segura PA-C Primary Care Provider Rhett Cortez MD Unavailable Reason for Visit * Auth/Cert (Routine) Specialty Diagnoses / Procedures Referred By Dary smith Referred To Contact Referral ID Status Reason Start Date Expiration Date Visits Re quested Visits Authorized [id number] 1 1 Encounter Details Date Type Department Care Team (Late st Contact Info) Description 02/23/2025 11:30 AM EDT Home Care Visit [facility] [address] [place] [address] Shakira Hand, HUA [address] [place], [place] [phone] [email or web address] SN OASIS RECERTIFICATION/FUP Social History Tobacco Use [...] high school, GED, job training, learning the Spanish language, technical skills, or developing parenting skills)? [...] Care Visit [facility] [address] [place] [address] Shakira Hand, HUA [address] [place] [address] 03/15/2025 Home Care Visit [facility] [address] [place] [address] Shakira Hand RN [address] [place] [address] 03/22/2025 1:00 AM EDT Home Care Visit [facility] [address] [place] [address] Shakira Hand RN [address] [place] [address] 03/28/2025 9:40 AM EDT Office Visit [facility] Internal Medicine [address] [place] [address] Antione Segura PA-C [address] [place] [address] [email or web address] 03/29/2025 2:00 AM EDT Home Care Visit [facility] [address] [place] [phone] Shakira Hand, HUA [address] [place] [address] 04/05/2025 2:00 AM EDT Home Care Visit [facility] [address] [place] [phone] Shakira Hand RN [address] [place] [address] 04/12/2025 1:30 AM EDT Home Care Visit [facility] [address] [place] [phone] Shakira Hand, HUA [address] [place] [address] 04/19/2025 12:30 AM EST Home Care Visit [facility] [address] [place] [phone] Shakira Hand RN [address] [place] [address] 04/25/2025 Appointment [facility] [address] [place] [phone] Shakira Hand RN [address] [place] [address] 06/25/2025 9:30 AM EST Telemedicine [facility] Neurology [address] [place] [address] Jn Cardoza MD [address] [place] [address], 2nd [place] [address] [email or web address] documented as of this encounter Visit Diagnoses Not on filedocumented in this encounter Additional Health Concerns Assessment Noted Time PHQ-9 Depression Total Score: 15 025 9:44 AM EDT PHQ-2 Depression Total Score: 4 02/01/20 25 9:44 AM EDT documented as of this encounter Home Health Visit - Care Plan Visit Details Visit Type -SN OASIS RECERTI FICATION/FUP Discipline -Halfway Problems Problem Description Start Date Status Goals Interve ntions HH - Respiratory Status - Impaired Disciplines: All Active Home Health Disciplines 12/27/2024 Active 1 goal linked to scheduled/documen subhash intervention 3 goal interventions scheduled/document ed in this visit HH - Medication Management Disciplines: All Active Home Health Disciplines, Halfway 12/27/2024 Active 1 goal linked to scheduled/documen [...] visit HH - Resumption of Care Disciplines: Halfway 02/12/2025 Resolved on 02/23/2025 - 1 problem [...] adequate oxygenation and ventilation Completed - I/E use of respiratory care equipment: [...] DUE TO COPD EXACERBATION. PT SAW HER ROASTER HELPER DR HENRIQUEZ ON WED. REPORTS SHE IS [...] manageement, cvp New Orders: Updated Discharge Plan: HH - [...] Completed documented in this encounter Care Teams Breastfeeding Peer Counselor Relationship Specialty Start Date End Date Antione Segura PA-C [address] [place] [address] [email or web address] PCP - General Physician Arcade Attendant 10/12/24 Jn Cardoza MD [address] [place] [address], 2nd [place] [address] [email or web address] Neurology 02/03/24 Denys Henriquez MD [address] [place] [address] [place] [address] Pulmonary Disease 02/03/24 Rhett Cortez MD [address] [place] [address] [email or web address] Insurance Assigned Provider 01/20/25 documented as of this encounter Additional Source Comments The information contained in this document represents components of the legal health record. It is not the complete legal health record.[facility]
[2025-03-01] VITALS (9 sets, daily range): BP systolic 118–169; BP diastolic 49–80; PULSE 77–112; RESP 19–28; TEMP 36.6–36.8; O2SAT 89–95; BMI 33.1
--- NOTE | ~2025-03-01 | XR_ITS ---
EXAMINATION: XR CHEST CLINICAL INFORMATION: sob COMPARISON: 02/05/2025. Chest CT in 02/17/2025. TECHNIQUE: AP view of the chest was obtained. FINDINGS: The cardiac, hilar, and mediastinal contours are normal. The lungs are clear bilaterally. Mild stable scarring in the right lower lobe laterally. No pneumothorax or effusion. No focal osseous or soft tissue abnormality. XR/XR chest 1V IMPRESSION: No active pulmonary disease. Electronically signed by: Emmett Triplett MD 03/01/2025 03:22 PM EDT
--- OUTSIDE RECORDS SUMMARY | 2025-03-01 11:00 | XMS_ITS | Encounter Summary ---
Author Organization [facility] Address [address] [place] [address] Phone Care Team Providers Care Professor Of Business Administration Name Role Phone Jn Cardoza MD Unavailable Denys Henriquez MD Unavailable Antione Segura PA-C Primary Care Provider Rhett Cortez MD Unavailable Reason for Visit * Auth/Cert (Routine) Specialty Diagnoses / Procedures Referred By Dary smith Referred To Contact Referral ID Status Reason Start Date Expiration Date Visits Re quested Visits Authorized [id number] 1 1 Encounter Details Date Type Department Care Team (Late st Contact Info) Description 03/01/2025 11:00 AM EDT Home Care Visit [facility] [address] [place] [phone] Rich Mariscal [address] [place] [address] 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 [...] Sign Reading Time Taken Comments Blood Pressure 125/65 03/01/2025 11:28 AM EDT Pulse 78 03/01/2025 11:28 AM EDT Temperature 36.5 C (97.7 F) 03/01/2025 11:28 AM EDT Respiratory Rate - - Oxygen Saturation 94% 03/01/2025 11:28 AM EDT Inhaled Oxygen Concentration - - Weight - - Height - - Body Mass Index - - documented in this encounter Plan of Treatment Upcoming Encounters Date Type Department Care Team (Late st Contact Info) Description 03/08/2025 1:00 AM EDT Home Care Visit [facility] [address] [place] [address] Shakira Hand, HUA [address] [place] [phone] [email or web address] 03/15/2025 Home Care Visit [facility] [address], [place] [phone] Shakira Hand RN [address] [place] [address] [email or web address] 03/22/2025 1:00 AM EDT Home Care Visit [facility] [address] [place] [address] Shakira Hand, HUA [address] [place] [address] [email or web address] 03/28/2025 9:40 AM EDT Office Visit [facility] [address] [place] [address] Antione Segura PA-C [address] [place] [address] [email or web address] 03/29/2025 2:00 AM EDT Home Care Visit [facility] [address] [place] [phone] Shakira Hand, HUA [address] [place] [address] 04/05/2025 2:00 AM EDT Home Care Visit [facility] [address] [place] [phone] Shakira Hand RN [address] [place] [address] [email or web address] 04/12/2025 1:30 AM EDT Home Care Visit [facility] [address] [place] [phone] Shakira Hand RN [address] [place] [phone] [email or web address] 04/19/2025 12:30 AM EST Home Care Visit [facility] [address] [place] [phone] Shakira Hand RN [address] [place] [phone] [email or web address] 04/25/2025 Appointment [facility] [address] [place] [phone] Shakira Hand RN [address] [place] [address] [email or web address] 06/25/2025 9:30 AM EST Telemedicine [facility] Neurology [address] [place] [address] Jn Cardoza MD [address] [place] [address], 2[address] [place] [address] [email or web address] documented as of this encounter Visit Diagnoses Not on filedocumented in this encounter Additional Health Concerns Assessment Noted Time PHQ-9 Depression Total Score: 15 025 9:44 AM EDT PHQ-2 Depression Total Score: 4 02/01/20 25 9:44 AM EDT documented as of this encounter Home Health Visit - Care Plan Visit Details Visit Type -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 Skin clean dry and intact. c/o dizziness intermittently, no falls noted. Will continue to monitor and maintain safety Instruction Provided to: patient Response to Instruction/Teachin g: Is partially able to teach back topics as evidenced by verbal recall. Plan for Next Visit Specific Focus & Education Needed: CVP assessment, resp assessment New Orders: none Updated Discharge Plan: When goals are met - I/E management of care in an [...] of an emergency related situation. Completed - Assess vital signs, pulse oximetry, pain, [...] Completed documented in this encounter Care Teams Professor Of Business Administration Relationship Specialty Start Date End Date Antione Segura PA-C [address] [place] [address] [email or web address] PCP - General Physician Admission Liaison 10/12/24 Jn Cardoza MD 22 [facility], 2nd [place] [address] [email or web address] Neurology 02/03/24 Denys Henriquez MD [address] [place] [address] [place] [address] Pulmonary Disease 02/03/24 Rhett Cortez MD [address] [place] [address] [email or web address] Insurance Assigned Provider 01/20/25 documented as of this encounter Additional Source Comments The information contained in this document represents components of the legal health record. It is not the complete legal health record.[facility]
--- NOTE | 2025-03-01 14:47 | ECG_ITS ---
Test Reason : SOB Blood Pressure : */* mmHG Vent. Rate : 83 BPM Atrial Rate : 83 BPM P-R Int : 144 ms QRS Dur : 86 ms QT Int : 378 ms P-R-T Axes : 61 57 50 degrees QTcB Int : 444 ms Artifact in tracing Normal sinus rhythm Normal ECG When compared with ECG of 05-Feb-2025 05:55, No significant change was found Referred By: Mariam Lopez Electronically Signed By: ANGEL HARRISON
--- NOTE | 2025-03-01 15:10 | ED_ITS ---
HPI - SOB/Dyspnea General Chief Complaint: Dyspnea Stated Complaint: SOB ALL DAY,91% ON HOME CPAP,UDRAFT GIVEN PER EMS Time Seen by Provider: 03/01/25 14:47 Source: patient, EMS and old records reviewed Mode of arrival: EMS Limitations: no limitations History of Present Illness ED Provider: DR. Lopez HPI Narrative: A 60-year-old female PMHx of COPD on supplemental oxygen want to 3 L/min, HLD, CVA, obesity, moderate , HTN, multiple hospitalization for COPD exacerbation was recently discharged (02/09/2025) from the hospital for COPD exacerbation, patient returned today for increased shortness of breath and increased usage of bronchodilator at home, patient noted that her O2 sat down to 87% with 2 L of nasal cannula at home which is not normal for the patient (patient normally satting at 96-98% with oxygen at home), patient still taking prednisone taper. Patient was given DuoNeb and Solu-Medrol by EMS EN route feels slightly improved. Related Data Home Medications ?Medication ?Instructions ?Recorded ?Confirmed atorvastatin 80 mg tablet 80 mg PO DAILY@199903/04/23 02/26/25 gtriwotgyl-nabjxhocmanpo-mqvtrwxi 1 tab PO DAILY MRX1 PRN Migraine 03/04/23 02/26/25 50 mg-325 mg-40 mg tablet Headache duloxetine 60 mg capsule,delayed 60 mg PO BID@0600,200 0 03/04/23 02/26/25 release gabapentin 300 mg capsule 1,200 mg PO TID@0600,1200,20 00 03/04/23 02/26/25 hyoscyamine sulfate 0.125 mg tablet 0.25 mg PO Q6H PRN Abdominal 03/04/23 02/26/25 Discomfort Oxygen Home Use 04/16/23 02/26/25 prazosin 2 mg capsule 2 mg PO DAILY@199904/16/23 02/26/25 albuterol sulfate 90 mcg/actuation 2 puff inhalation Q 4H PRN 01/31/24 02/26/25 aerosol inhaler Shortness Of Breath Or Wheez ing aspirin 81 mg tablet,delayed 81 mg PO DAILY@05/2202/26/25 release calcium 600 mg (as 1 tab PO DAILY@199906/20/24 02/26/25 carbonate)-vitamin D3 5 mcg (200 unit) tablet baclofen 20 mg tablet 20 mg PO TID@0500,1200,2000 10/29/24 02/26/25 aripiprazole 5 mg tablet (Abilify) 5 mg PO DAILY@0600 12/01/24 02/26/25 oxcarbazepine 300 mg tablet 300 mg PO BID@0600,1800 02/26/25 lorazepam 0.5 mg tablet 0.5 mg PO BEDTIME@2000 MODER ATE 01/04/25 02/26/25 Anxiety polyethylene glycol 3350 17 17 g PO DAILY PRN Constipa tion 01/04/25 02/26/25 gram/dose oral powder (Miralax) budesonide 160 mcg-glycopyr 9 2 inh inhalation BID@060 0,1800 02/05/25 02/26/25 mcg-formot 4.8 mcg/actuation HFA inhaler (Breztri Aerosphere) lorazepam 0.5 mg tablet 0.5 mg PO DAILY PRN Anxiety 02/05/25 02/26/25 prednisone 10 mg tablet See Taper PO DAILY 02/05/25 02/26/25 roflumilast 500 mcg tablet 500 mcg PO DAILY@0600 02/0502/26/25 (Daliresp) valsartan 40 mg tablet 40 mg PO DAILY@0602/05/25 02/26/25 verapamil 120 mg tablet 120 mg PO BID@0600,1800 08/11/0502/26/25 Previous Rx's ?Medication ?Instructions ?Recorded nebulizer and compressor #1 ea 12/16/23 ipratropium 0.5 mg-albuterol 3 mg 3 ml inhalation Q4H PRN for 03/02/24 (2.5 mg base)/3 mL nebulization dyspnea #180 mL soln omeprazole 20 mg capsule,delayed 20 mg PO DAILY@06 # 0 caps 12/13/24 release oxycodone 5 mg tablet 5 mg PO BID PRN Severe Pain (Scale 12/13/24 Score 7-10) #10 tabs benzonatate 100 mg capsule 100 mg PO TID PRN Cough #30 caps 02/09/25 prednisone 10 mg tablet See Rx Instructions .Route 0 02/09/25 .COMPLEX #42 tabs prednisone 5 mg tablet 5 mg PO DAILY 30 days #30 ta bs 02/21/25 Allergies Allergy/AdvReac Type Severity Reaction Status Date / Time Iodinated Contrast Media (IV Allergy Intermediate HIVES Verified 03/01/25 15:55 CONTRAST) latex (LATEX) Allergy Unknown RASH Verified 03/01/25 15:55 adhesive tape Allergy Rash Verified 03/01/25 15:55 morphine (MORPHINE) AdvReac Unknown VOMITING Verified 03/01/25 15:55 Review of Systems 2 Review of Systems: All other systems are reviewed and are negative Constitutional: Reports as per HPI and Reports no additional constitutional complaints Eyes: Reports as per HPI and Reports no additional eye complaints Reports system reviewed and no additional complaints, except as documented Cardiovascular: Reports as per HPI and Reports no additional cardiovascular complaints Respiratory: Reports as per HPI and Reports no additional respiratory complaints Gastrointestinal: Reports as per HPI and Reports no additional gastrointestinal complaints Genitourinary: Reports no additional female genitourinary complaints Musculoskeletal: Reports no additional musculoskeletal complaints Skin/Breast: Reports system reviewed and no additional complaints, except as docu Psychiatric: Reports no additional psychiatric complaints Endocrine: Reports no additional endocrine complaints Hematologic/Lymphatic: Reports no additional hematologic/lymphatic complaints Allergic/Immunologic: Reports no additional allergic/immunologic complaints Reports system reviewed and no additional complaints, except as documented and Reports Abnormal speech present [facility] Past Medical History Medical History Morbid obesity Pulmonary nodules Diastolic heart failure Leukocytosis Chronic lung disease Chronic lung disease Hypoxia Panic disorder Hypertension Chronic hypercapnic respiratory failure Aortic stenosis Obesity (BMI 30-39.9) Asthma Acute exacerbation of chronic obstructive pulmonary disease Chronic lung disease Hypogammaglobulinemia Smoker JUANITO (obstructive sleep apnea) Allergies Elevated troponin COPD (chronic obstructive pulmonary disease) Trigeminal neuralgia Mixed hyperlipidemia Peripheral neuropathy Tobacco use disorder Mood disorder Surgical History History of esophagogastroduodenoscopy (EGD) History of colonoscopy History of lumbar discectomy History of tubal ligation History of excision of mass History of shoulder surgery Social History Social History Household Members: Spouse Household Members Other:: dog Housing: Condominium Do you presently have visiting nurse or other home services: Yes Alcohol intake: never Comment: rings appropriately Patient Tobacco Use Status: Former Tobacco user Tobacco use type: Cigarette Cigarette Packs Per Day: 4 Cigarettes Per Day: 80.0 Years Smoked: 40 e-Cigarette/Vaping Use: Never Used Second Hand Smoke Exposure: No Substance Use Type: Marijuana Advance Directives: Yes Advance Directives on File: Yes Advance Directives Date on File: 03/09/23 service: No Physical Exam 2 Vital Signs: Vital Signs: Last Vital Signs Temp 98 F 03/01/25 14:45 Pulse 86 03/01/25 16:08 Resp 24 H 03/01/25 16:08 BP 137/71 03/01/25 16:08 Pulse Ox 94 03/01/25 16:08 O2 Del Method Nasal Cannula 03/01/25 16:08 O2 Flow Rate 3 03/01/25 16:08 Oxygen Flow Rate 2 03/01/25 14:45 BMI result Body Mass Index 33.1 Vital signs have been reviewed and appear to be correct. Blood pressure elevated. Heart rate normal. Respiratory rate normal. Temperature normal. Oxygen saturation normal. Appearance: Alert. Oriented X3. No acute distress. Head: Normal external exam. Normocephalic. Atraumatic. No Castano signs noted. No raccoon eyes noted Eyes: PERRLA. EOMI. Conjunctiva and sclera normal. Eyelids normal. ENT: TM's Normal. Pharynx normal. Uvula midline. Moist mucous membranes. No trismus noted. No drooling noted. No muffled voice noted. Neck: Normal inspection. Neck supple. FROM. No adenopathy. Thyroid Normal. No meningeal signs. No neck mass noted. CVS: Normal heart rate and rhythm. Heart sound normal. No murmurs noted. Pulses normal throughout. Respiratory: No respiratory distress. Painless inspiration. Breath sounds normal. No wheezes/rales/rhonchi noted. Chest nontender. No accessory muscle usage noted or decreased air movement noted. Abdomen: Soft and nontender. Bowel sounds normal in all 4 quadrants. No distention noted. No organomegaly noted. No visible injury noted. Back: No CVA tenderness. Full range of motion noted. Skin: Skin warm and dry. Normal skin color. Normal skin turgor. No rashes/lesions/lacerations noted. Extremities: No lower extremity edema. Extremities exhibit normal range of motion. Extremities nontender. Neuro: Oriented X 3. Cranial nerve exam: II-XII are grossly intact No motor deficit. No sensory deficit. Reflexes normal. Course Reevaluation(s) Reevaluation #1: 60-year-old female history of COPD, use supplemental oxygen at home patient been having difficulty breathing and hypoxia. Patient despite receiving multiple DuoNeb and Solu-Medrol and magnesium still short of breath, improvement of O2 sat with nasal cannula in the ED. Will admit for aggressive bronchodilator treatment. Time: 17:23 Medications Administered Discontinued Medications Generic Name Dose Route Start Last Admin Trade Name Freq PRN Reason Stop Dose Admin Doxycycline Hyclate 100 mg/ 250 mls @ 166.67 mls/hr 03/01/25 15:17 03/01/25 16:15 Sodium Chloride IV 03/01/25 16:46 166.67 mls/hr ONCE ONE Administration Magnesium Sulfate/Dextrose 1 gm in 100 mls @ 100 mls/hr 03/01/25 15:18 03/01/25 16:12 Magnesium Sulfate/D5w IV 03/01/25 16:17 100 mls/hr ONCE ONE Administration Sodium Chloride 500 mls @ 500 mls/hr 03/01/25 16:15 03/01/25 16:16 Ns IV 03/01/25 17:14 500 mls/hr .Q1H CHAPARRO Administration Medical Decision Making Differential Diagnosis Differential Diagnoses: The differential diagnosis associated with the presentation includes (Pneumonia, pneumothorax, pleural effusion, asthma, COPD, electrolyte derangement, severe anemia.) Admission/Observation Consideration of admission/observation: Escalation of care including admission/observation considered Consult Healthcare Provider Management of the patient was discussed with: Hospitalist (Dr. Harrison) Lab Data MDM Lab Attestation statement: I reviewed the patient's lab results. 03/01/25 15:10 03/01/25 15:10 Labs: Lab Results 03/01/25 03/01/25 03/01/25 Range/Units 15:10 15:15 16:14 WBC 9.5 (4.8-10.8) X10*3/uL RBC 3.81 L (4.20-5.50) X10*6/uL Hgb 11.9 L (12.0-16.0) g/dl Hct 37.1 (37.0-47.0) % MCV 97.4 (80.0-98.0) fL MCH 31.2 (27.0-33.0) pg MCHC 32.1 (31.0-35.0) g/dl RDW 14.0 (11.0-16.0) % Plt Count 348 (160-400) X10*3/uL MPV 9.3 L (9.4-12.3) fL Immature Gran % (Auto) 0.3 (0.0-0.4) % Neut % (Auto) 83.9 H (45-73) % Lymph % (Auto) 11.0 L (20-40) % [place] % (Auto) 4.0 (2-11) % Eos % (Auto) 0.6 (0-4) % Baso % (Auto) 0.2 (0-2) % Lymph # (Auto) 1.0 L (1.2-4.9) X10*3/uL [place] # (Auto) 0.4 (0.1-1.2) X10*3/uL Eos # (Auto) 0.1 (0.0-0.4) X10*3/uL Baso # (Auto) 0.0 (0.0-0.2) X10*3/uL Abs Immat Gran (auto) 0.03 (0.00-0.03) X10*3/uL Absolute Neuts (auto) 8.0 (2.0-8.3) x10*3/uL Absolute Nucleated RBC 0.000 (0.0-0.012) X10*3/uL Nucleated RBC % (auto) 0.0 (0.0-0.2) /100WBC PT 9.7 L (10.9-12.4) SEC INR 0.8 L (0.9-1.1) VBG pH 7.46 H (7.32-7.43) VBG pCO2 41 mmHg VBG pO2 60 mmHg VBG HCO3 29 H (22-26) mmol/L VBG O2 Saturation 90.0 % VBG Base Excess 5.6 mmol/L Sodium 142 (135-145) mmol/L Potassium 4.4 (3.3-5.1) mmol/L Chloride 107 (96-108) mmol/L Carbon Dioxide 27 (22-29) mmol/L Anion Gap 12 (12-20) BUN 11 (9-16) mg/dL Creatinine 0.67 (0.5-1.4) mg/dL Estim Creat Clear Calc TNP Estimated GFR > 60 Random Glucose 110 (60-115) mg/dL Lactic Acid 1.5 (0.5-2.0) mmol/L Calcium 9.3 (8.4-10.2) mg/dL Total Bilirubin 0.2 (0.0-1.0) mg/dL Direct Bilirubin < 0.2 (0.0-0.5) mg/dL AST 37 H (5-31) U/L ALT 19 (0-31) U/L Alkaline Phosphatase 55 (39-117) U/L Troponin I High Sens 10.2 D (<3.5-17.0) ng/L Total Protein 7.6 (6.5-8.0) g/dL Albumin 4.1 (3.5-5.0) g/dL Lipase 14 (8-78) U/L Urine Color Yellow Urine Appearance Clear Urine pH 8.0 (5.0-9.0) Ur Specific [place] <= 1.005 (1.005-1.025) Urine Protein Negative (Neg-Trace) mg/dL Urine Glucose (UA) Negative (Negative) mg/dL Urine Ketones Negative (Negative) mg/dL Urine Blood Negative (Negative) Urine Nitrite Negative (Negative) Ur Leukocyte Esterase Negative (Negative) Influenza Type A (PCR) NEGATIVE (Negative) Influenza Type B (PCR) NEGATIVE (Negative) RSV RNA Qual (PCR) NEGATIVE (Negative) SARS-CoV-2 RNA (RT-PCR) NEGATIVE (Negative) Independent Interpretation I performed an independent interpretation of an: Plain X-Ray (Chest: No acute intrathoracic pathology.) Radiology Impression Discussion of test interpretation with radiology: I have reviewed the radiologist's reading. Discharge Plan Discharge Clinical Impression: COPD with acute exacerbation Patient Disposition: Admitted As Inpatient Print Language: Maori
[2025-03-01 15:20] LABS: Venous Blood Gas Refer to POC result
[2025-03-01 15:20] LABS: VBG HCO3 29 mmol/L (22-26); VBG O2 % Saturation 90.0 %
[2025-03-01 15:26] LABS: MANUAL DIFF FLAG NO
[2025-03-01 15:33] LABS: Hematocrit 37.1 % (37.0-47.0); Hemoglobin 11.9 g/dl (12.0-16.0); Imm Gran Abs Auto 0.03 X10*3/uL (0.00-0.03); Imm Gran Pct Auto 0.3 % (0.0-0.4); Lymphocytes Absolute Auto 1.0 X10*3/uL (1.2-4.9); Mean Corpuscular HGB Conc 32.1 g/dl (31.0-35.0); Mean Corpuscular Hemoglobin 31.2 pg (27.0-33.0); Mean Corpuscular Volume 97.4 fL (80.0-98.0); NRBC Abs Auto 0.000 X10*3/uL (0.0-0.012); NRBC Pct Auto 0.0 /100WBC (0.0-0.2); Platelet Count 348 X10*3/uL (160-400); Red Blood Count 3.81 X10*6/uL (4.20-5.50); White Blood Count 9.5 X10*3/uL (4.8-10.8)
[2025-03-01 15:37] LABS: INTERNATIONAL NORM RATIO 0.8 (0.9-1.1); Prothrombin Time 9.7 SEC (10.9-12.4)
[2025-03-01 15:46] LABS: Alanine Aminotransferase 19 U/L (0-31); Albumin Level 4.1 g/dL (3.5-5.0); Alkaline Phosphatase 55 U/L (39-117); Anion Gap 12 (12-20); Aspartate Amino Transferase 37 U/L (5-31); Blood Urea Nitrogen 11 mg/dL (9-16); Calcium 9.3 mg/dL (8.4-10.2); Carbon Dioxide 27 mmol/L (22-29); Chloride 107 mmol/L (96-108); Estimated Glomerular Filt Rate > 60; Lipase 14 U/L (8-78); Potassium 4.4 mmol/L (3.3-5.1); Sodium 142 mmol/L (135-145); Total Protein 7.6 g/dL (6.5-8.0)
[2025-03-01 15:52] LABS: Troponin-I High Sensitivity 10.2 ng/L (<3.5-17.0)
[2025-03-01 16:20] LABS: Appearance Urine Clear; Glucose Urine UA Negative (Negative); PH 8.0 (5.0-9.0); Specific Gravity - Urine <= 1.005 (1.005-1.025)
[2025-03-01 16:54] LABS: Resp Syncy Virus RNA Qual PCR NEGATIVE (Negative); SARS COV2 PCR INHOUSE NEGATIVE (Negative)
--- OUTSIDE RECORDS SUMMARY | 2025-03-01 17:22 | XMS_ITS | Encounter Summary ---
Author Organization [facility] Address [address] [place] [phone] Phone Care Team Providers Care Mail Service Coordinator Name Role Phone Lang Germain MD Unavailable Jennifer Duke CHAPERON Primary Care Provider Sirisha Huertas DIRECTORY CLERK Primary Care Provider [phone] Jn Cardoza MD Unavailable Denys Henriquez MD Unavailable Liyah Patterson MD Unavailable Liyah Patterson MD Primary Care Provider [phone] Antione Segura PA-C Primary Care Provider [phone] Rhett Cortez MD Unavailable Encounter Details Date Type Department Care Team (Late st Contact Info) Description 09/01/2021 Procedure Pass [address] [address] Social History Tobacco Use Types Packs/Day Years [...] Care Visit [facility] [address] [place] [phone] Shakira Hand RN [address] [place] [address] [email or web address] 03/15/2025 Home Care Visit [facility] [address] [place] [phone] Shakira Hand RN [address] [place] [phone] [email or web address] 03/22/2025 1:00 AM EDT Home Care Visit [facility] [address] [place] [phone] Shakira Hand RN [address] [place] [phone] [email or web address] 03/28/2025 9:40 AM EDT Office Visit [facility] [place] [facility] [address] [place] [address] Antione Segura PA-C [address] [place] [address] [email or web address] 03/29/2025 2:00 AM EDT Home Care Visit [facility] [address] [place] [phone] Shakira Hand RN [address] [place] [phone] 04/05/2025 2:00 AM EDT Home Care Visit [facility] [address] [place] [phone] Shakira Hand RN [address] [place] [address] 04/12/2025 1:30 AM EDT Home [facility] Visit [facility] [address] [place] [phone] Shakira Hand RN [address] [place] [address] 04/19/2025 12:30 AM EST Home Care Visit [facility] [address] [place] [phone] Shakira Hand RN [address] [place] [address] 04/25/2025 Appointment [facility] [address] [place] [phone] Shakira Hand RN [address] [place] [phone] 06/25/2025 9:30 AM EST Telemedicine [facility] Neurology [address] [place] [phone] Jn Cardoza MD [address] [place] [address], [address] [place] [address] [email or web address] documented as of this encounter Visit Diagnoses Not on filedocumented in this encounter Additional Health Concerns Assessment Noted Time PHQ-2 Depression Total Score: 0 05/25/20 19 9:02 AM EST documented as of this encounter Care Teams Mail Service Coordinator Relationship Specialty Start Date End Date Jennifer Duke, CHAPERON [address] [place] [phone] [email or web address] PCP - General Family Medicine 01/31/20 06/22/23 Sirisha Huertas FNP [address] [place] [phone] [email or web address] PCP - General Nurse Practitioner 06/23/23 08/03/24 Liyah Patterson MD [address] [place] [phone] [email or web address] PCP - General Family Medicine 08/04/24 10/11/24 Antione Segura PA-C [address] [place] [phone] [email or web address] PCP - General Physician [employer] Engineer 10/12/24 Lang Germain MD [address] [place] [phone] [email or web address] Insurance Assigned Provider 09/18/23 02/19/24 Jn Cardoza MD [address] [place] [address], [address] [place] [address] [email or web address] Neurology 02/03/24 Denys Henriquez MD [address] [place] [address] [place] [address] Pulmonary Disease 02/03/24 Liyah Patterson MD [address] [place] [phone] [email or web address] Insurance Assigned Provider 02/19/24 01/20/25 Rhett Cortez MD [address] [place] [phone] [email or web address] Insurance Assigned Provider 01/20/25 documented as of this encounter Additional Source Comments The information contained in this document represents components of the legal health record. It is not the complete legal health record.[facility]
--- OUTSIDE RECORDS SUMMARY | 2025-03-01 17:22 | XMS_ITS | Encounter Summary ---
Author Organization [facility] Address [address] [place] [address] Phone Care Team Providers Care Grease Worker Name Role Phone Charbel Webber MD Unavailable Alverto Gandara MD Unavailable Maikel Rawls MD Unavailable [phone] Jennifer Duke RESPIRATORY MEDICINE PHYSICIAN Primary Care Provider Lang Germain MD Primary Care Provider Jennifer Duke RESPIRATORY MEDICINE PHYSICIAN Primary Care Provider Lang Germain MD Unavailable Lang Germain MD Primary Care Provider Jennifer Duke RESPIRATORY MEDICINE PHYSICIAN Primary Care Provider Lang Germain MD Primary Care Provider Jennifer Duke RESPIRATORY MEDICINE PHYSICIAN Primary Care Provider Lang Germain MD Primary Care Provider Jennifer Duke RESPIRATORY MEDICINE PHYSICIAN Primary Care Provider Lang Germain MD Primary Care Provider Verden, Jennifer L RESPIRATORY MEDICINE PHYSICIAN Unavailable [phone] Jennifer Duke RESPIRATORY MEDICINE PHYSICIAN Primary Care Provider [phone] Lang Germain MD Primary Care Provider [phone] Jennifer Duke RESPIRATORY MEDICINE PHYSICIAN Primary Care Provider [phone] Sirisha Huertasis DIESEL DRAGLINE OPERATOR Primary Care Provider [phone] Jn Cardoza MD Unavailable Denys Henriquez MD Unavailable Liyah Patterson MD Unavailable Liyah Patterson MD Primary Care Provider [phone] Antione Segura PA-C Primary Care Provider [phone] Rhett Cortez MD Unavailable Encounter Details Date Type Department Care Team (Late st Contact Info) Description 09/13/2018 Procedure Pass [facility], [address] [address] Social History Tobacco Use Types Packs/Day Years [...] 03/08/2025 1:00 AM EDT [facility] [address] [place] [phone] Shakira Hand, HUA [address] [place], [place] [phone] 03/15/2025 Home Care Visit [facility] [address] [place] [phone] Shakira Hand RN [address] [place] [address] 03/22/2025 1:00 AM EDT Home [facility] Visit [facility] [address] [place] [phone] Shakira Hand RN [address] [place] [address] 03/28/2025 9:40 AM EDT Office Visit [facility] 40 [place] [address] Antione Segura PA-C 40 [place] [address] 03/29/2025 2:00 AM EDT Home [facility] [address] [place] [phone] Shakira Hand RN [address] [place] [address] 04/05/2025 2:00 AM EDT Home [facility] [address] [place] [phone] Shakira Hand RN [address] [place] [address] 04/12/2025 1:30 AM EDT Home [facility] Visit [facility] [address] [place] [phone] Shakira Hand RN [address] [place] [address] 04/19/2025 12:30 AM EST Home [facility] Visit [facility] [address] [place] [address] Shakira Hand RN [address] [place] [address] [email or web address] 04/25/2025 Appointment [facility] [address] [place] [address] Shakira Hand RN [address] [place] [address] 06/25/2025 9:30 AM EST Telemedicine [facility] Neurology 22 [place] [address] Jn Cardoza MD 22 [facility], 2nd [place] [address] [email or web address] documented as of this encounter Visit Diagnoses Not on filedocumented in this encounter Additional Health Concerns Assessment Noted Time PHQ-2 Depression Total Score: 0 08/20/19 9:13 AM EST documented as of this encounter Care Teams Grease Worker Relationship Specialty Start Date End Date Jennifer Duke NP [address] [place] [address] [email or web address] PCP - General Family Medicine 09/08/18 09/14/18 Lang Germain MD [address] [place] [address] [email or web address] PCP - General Internal Medicine 09/15/18 10/02/18 Jennifer Duke NP [address] [place] [address] [email or web address] PCP - General Family Medicine 10/03/18 10/05/18 Lang Germain MD [address] [place] [address] [email or web address] PCP - General Internal Medicine 10/06/18 10/12/18 Jennifer Duke NP [address] [place] [address] PCP - General Family Medicine 10/13/18 11/09/18 Lang Germain MD [address] [place] [address] [email or web address] PCP - General Internal Medicine 11/10/18 11/22/18 Jennifer Duke NP [address] [place] [address] PCP - General Family Medicine 11/23/18 11/30/18 Lang Germain MD [address] [place] [address] [email or web address] PCP - General Internal Medicine 12/01/18 12/13/18 Jennifer Duke NP [address] [place] [address] [email or web address] PCP - General Family Medicine 12/14/18 11/12/19 Lang Germain MD [address] [place] [address] [email or web address] PCP - General Internal Medicine 11/13/19 12/03/19 Jennifer Duke NP [address] [place] [address] [email or web address] PCP - General Family Medicine 12/04/19 01/23/20 Lang Germain MD [address] [place] [address] [email or web address] PCP - General Internal Medicine 01/24/20 01/30/20 Jennifer Duke, [place] [address] [address] [email or web address] PCP - General Family Medicine 01/31/20 06/22/23 Sirisha Huertas, [facility] [address] [place] [address] 201 [place] [address] [email or web address] PCP - General Nurse Practitioner 06/23/23 08/03/24 Liyah [place] MD [address] [place] [address] [email or web address] PCP - General Family Medicine 08/04/24 10/11/24 Antione Segura PA-C [address] [place] [address] [email or web address] PCP - General Physician High Lift Driver 10/12/24 Charbel Webber MD [address] [place] [address], [address] [place] [address] [email or web address] Historical LMR Provider 04/01/17 0 Alverto Gandara MD [address] [address] [email or web address] Historical LMR Provider 04/01/17 12/03/19 Maikel Rawls MD [address] [address] [email or web address] Historical LMR Provider 04/01/17 12/03/19 Lang Germain MD [address] [place] [address] [email or web address] Insurance Assigned Provider 09/18/23 02/19/24 Jennifer Duke NP [address] [address] [email or web address] Nurse Practitioner Family Medicine 11/13/19 01/30/20 Jn Cardoza MD [address] [address] Neurology 02/03/24 Denys Henriquez MD [address] [place] [address] [place] [address] Pulmonary Disease 02/03/24 Liyah [place] MD [address] [address] [email or web address] Insurance Assigned Provider 02/19/24 01/20/25 Rhett Cortez MD [address] [place] [address] [email or web address] Insurance Assigned Provider 01/20/25 documented as of this encounter Additional Source Comments The information contained in this document represents components of the legal health record. It is not the complete legal health record.[facility]
--- OUTSIDE RECORDS SUMMARY | 2025-03-01 17:22 | XMS_ITS | Encounter Summary ---
Author Organization [facility] Address [address] [place] [address] Care Team Providers Care Director Of Midwifery/Staff Midwife Name Role Phone Antione Segura Primary Care Provider [phone] Reason for Visit * Reason Onset Date Comments PAC Order Request 01/29/2025 Dr. Bautista 01/29/2025 Encounter Details Date Type Department Care Team (Late st Contact Info) Description 01/29/2025 Telephone [facility] [address] [place] [address] [phone] Cement Despatch Operator: Federico Hill Telephone Intake, Staff PAC Order [...] 2:23 PM EDT Spoke to Pulmonary at [facility] regarding PFTs. They stated they can accept order fromDr. Bautista. Order faxed to [phone]. * Telephone Encounter - Amalia Paredes RN - 01/29/2025 1:38 PM EDT Spoke to patient. She stated not transferring care but would like to have the PFTs done closer to her, as [place] [address] [facility]. She is on portable oxygen and concerned that she would not have enough for such a long day of travel and testing. * Telephone Encounter - Diana Naeem - 01/29/2025 12:10 PM EDT Pt of Dr. Bautista would like PFT order faxed over to [facility] closer to her home, please advise pt # [phone] documented in this encounter Plan of Treatment Upcoming Encounters Date Type Department Care Team (Late st Contact Info) Description 05/30/2025 2:00 PM EST Follow-Up [facility] [address] [place] [address] Cement Despatch Operator: Remy Santos MD [address] [place] [address] documented as of this encounter Visit Diagnoses Not on filedocumented in this encounter Care Teams Director Of Midwifery/Staff Midwife Relationship Specialty Start Date End Date Antione Segura PA [address] [place] [phone] PCP - General Emergency Medicine 01/10/25 documented as of this encounter
--- OUTSIDE RECORDS SUMMARY | 2025-03-01 17:22 | XMS_ITS | Encounter Summary ---
Author Organization [facility] Address [address] [address] Phone Care Team Providers Care President & Ceo [employer] Name Role Phone Jn Cardoza MD Unavailable Denys Henriquez MD Unavailable [phone] Liyah [place] MD Unavailable Antione Segura-C Primary Care Provider [phone] Rhett Cortez MD Unavailable Encounter Details Date Type Department Care Team (Late st Contact Info) Description 12/06/2024 Home Health Resumption of Care Planning [facility] [address] [place] [address] Diana Torres, RN [address] [place] [address] [email or web address] Social History Tobacco Use Types Packs/Day Years [...] high school, GED, job training, learning the Amharic language, technical skills, or developing parenting skills)? [...] Visit [facility] [address] [place] [phone] Shakira Hand RN [address] [place] [address] 03/15/2025 Home [facility] [address] [place] [address] Shakira Hand RN [address] [place] [address] 03/22/2025 1:00 AM EDT [facility] [address] [place] [phone] Shakira Hand RN [address] [place] [address] 03/28/2025 9:40 AM EDT Office Visit [facility] [place] [facility] 40 [place] [address] Antione Segura PA-C 40 [place], [place] [phone] 03/29/2025 2:00 AM EDT [facility] [address] [place] [phone] Shakira Hand RN [address] [place] [address] 04/05/2025 2:00 AM EDT [facility] [address] [place] [phone] Shakira Hand RN [address] [place] [address] 04/12/2025 1:30 AM EDT Home [facility] Visit [facility] [address] [place] [phone] Shakira Hand RN [address] [place] [address] 04/19/2025 12:30 AM EST Home [facility] [address] [place] [phone] Shakira Hand RN [address] [place] [address] 04/25/2025 Appointment [facility] [address] [place] [phone] Shakira Hand RN [address] [place] [address] 06/25/2025 9:30 AM EST Telemedicine [facility] Neurology [address] [place] [address] Jn Cardoza MD 22 [facility] 2nd [place] [address] documented as of this encounter Visit Diagnoses Not on filedocumented in this encounter Additional Health Concerns Assessment Noted Time PHQ-9 Depression Total Score: 21 025 12:31 PM EDT PHQ-2 Depression Total Score: 6 10/13/19 25 12:31 PM EDT documented as of this encounter Care Teams President & Ceo [employer] Relationship Specialty Start Date End Date Antione Segura PA-C 40 [place] [address] [email or web address] PCP - General Physician Heavy Equipment Sales Associate 10/12/24 Jn Cardoza MD 22 [facility], 2nd [place] [address] [email or web address] Neurology 02/03/24 Denys Henriquez MD [address] [place] [address] [place] [address] Pulmonary Disease 02/03/24 Liyah [place] MD 15 [facility] Subhash. [address] [place] [address] [email or web address] Insurance Assigned Provider 02/19/24 01/20/25 Rhett Cortez MD [address] [place] [address] Insurance Assigned Provider 01/20/25 documented as of this encounter Additional Source Comments The information contained in this document represents components of the legal health record. It is not the complete legal health record.[facility]
--- OUTSIDE RECORDS SUMMARY | 2025-03-01 17:22 | XMS_ITS | Encounter Summary ---
Author Organization [facility] Address [address] [place] [phone] Phone Care Team Providers Care Crude Tester Name Role Phone Jn Cardoza MD Unavailable Denys Henriquez MD Unavailable Antione Segura PA-C Primary Care Provider [phone] Rhett Cortez MD Unavailable Encounter Details Date Type Department Care Team (Late st Contact Info) Description 02/14/2025 Orders Only [facility] Internal Medicine [address] [place] [address] Provider, MD Omar [address] [place] [address] Social History Tobacco Use Types Packs/Day [...] high school, GED, job training, learning the Moroccan language, technical skills, or developing parenting skills)? [...] Care Visit [facility] [address] [place] [phone] Shakira Hand RN [address] [place] [address] [email or web address] 03/15/2025 Home Care Visit [facility] [address] [place] [phone] Shakira Hand RN [address] [place] [address] [email or web address] 03/22/2025 1:00 AM EDT Home [facility] [address] [place] [phone] Shakira Hand RN [address] [place] [address] [email or web address] 03/28/2025 9:40 AM EDT Office Visit [facility] Internal Medicine [address] [place] [address] Antione Segura PA-C 40 [place] [address] 03/29/2025 2:00 AM EDT Home Care Visit [facility] [address] [place] [phone] Shakira Hand RN [address] [place] [address] [email or web address] 04/05/2025 2:00 AM EDT Home Care Visit [facility] [address] [place] [phone] Shakira Hand RN [address] [place] [address] 04/12/2025 1:30 AM EDT Home Care Visit [facility] [address] [place] [phone] Shakira Hand RN [address] [place] [address] 04/19/2025 12:30 AM EST Home [facility] [address] [place] [phone] Shakira Hand RN [address] [place] [address] 04/25/2025 Appointment [facility] [address] [place] [phone] Shakira Hand RN [address] [place] [address] 06/25/2025 9:30 AM EST Telemedicine [facility] Neurology [address] [place] [address] Jn Cardoza MD [address] [place] [address], [address] [place] [address] [email or web address] documented as of this encounter Procedures Procedure [...] documented as of this encounter Care Teams Crude Tester Relationship Specialty Start Date End Date Antione Segura PA-C [address] [place] [address] [email or web address] PCP - General Physician Ammunition And Explosives Handler 10/12/24 Jn Cardoza MD 22 [facility], 2nd [place] [address] Neurology 02/03/24 Denys Henriquez MD [address] [place] [address] [place] [address] Pulmonary Disease 02/03/24 Rhett Cortez MD 40 [place] [address] [email or web address] Insurance Assigned Provider 01/20/25 documented as of this encounter Additional Source Comments The information contained in this document represents components of the legal health record. It is not the complete legal health record.[facility]
--- OUTSIDE RECORDS SUMMARY | 2025-03-01 17:22 | XMS_ITS | Encounter Summary ---
Author Organization [facility] Address [address] [address] Phone Care Team Providers Care Supervisor Winding Department Name Role Phone Jn Cardoza MD Unavailable Denys Henriquez MD Unavailable [phone] Liyah Patterson MD Unavailable Antione Segura-C Primary Care Provider [phone] Rhett Cortez MD Unavailable Encounter Details Date Type Department Care Team (Late st Contact Info) Description 01/09/2025 Home Health Resumption of [facility] [address] [place] [phone] Koki Simons, HUA [address] [place] [address] Social History Tobacco Use Types Packs/Day Years [...] high school, GED, job training, learning the Danish language, technical skills, or developing parenting skills)? [...] Home [facility] [address] [place] [phone] Shakira Hand RN [address] [place] [address] 03/15/2025 Home Care Visit [facility] [address] [place] [address] Shakira Hand RN [address] [place] [address] [email or web address] 03/22/2025 1:00 AM EDT Home [facility] [address] [place] [phone] Shakira Hand RN [address] [place] [address] 03/28/2025 9:40 AM EDT Office Visit [facility] 40 [place] [address] Antione Segura PA-C 40 [place] [address] [email or web address] 03/29/2025 2:00 AM EDT Home [facility] [address] [place] [phone] Shakira Hand RN [address] [place] [address] [place] [address] 04/05/2025 2:00 AM EDT Home [facility] [address] [place] [phone] Shakira Hand RN [address] [place] [address] 04/12/2025 1:30 AM EDT Home Care Visit [facility] [address] [place] [phone] Shakira Hand RN [address] [place] [address] 04/19/2025 12:30 AM EST Home [facility] [address] [place] [phone] Shakira Hand RN [address] [place] [address] [email or web address] 04/25/2025 Appointment [facility] [address] [place] [phone] Shakira Hand RN [address] [place] [address] 06/25/2025 9:30 AM EST Telemedicine [facility] Neurology [address] [place] [address] Jn Cardoza MD 22 [facility], 2nd [place] [address] documented as of this encounter Visit Diagnoses Not on filedocumented in this encounter Additional Health Concerns Assessment Noted Time PHQ-9 Depression Total Score: 20 025 9:08 PM EDT PHQ-2 Depression Total Score: 6 12/28/19 25 9:08 PM EDT documented as of this encounter Care Teams Supervisor Winding Department Relationship Specialty Start Date End Date Antione Segura PA-C 40 [place] [address] PCP - General Physician Web Design Specialist 10/12/24 Jn Cradoza MD 22 [facility], 2nd [place] [address] Neurology 02/03/24 Denys Henriquez MD [address] [place] [address] [place] [address] Pulmonary Disease 02/03/24 Liyah Patterson MD 15 [facility] Subhash. [address] [place] [address] [email or web address] Insurance Assigned Provider 02/19/24 01/20/25 Rhett Cortez MD 40 [place] [address] Insurance Assigned Provider 01/20/25 documented as of this encounter Additional Source Comments The information contained in this document represents components of the legal health record. It is not the complete legal health record.[facility]
--- OUTSIDE RECORDS SUMMARY | 2025-03-01 17:22 | XMS_ITS | Encounter Summary ---
Author Organization [facility] Address [address] [place] [address] Phone Care Team Providers Care Data Conversion Developer Name Role Phone Jn Cardoza MD Unavailable Denys Henriquez MD Unavailable [phone] Antione Segura PA-C Primary Care Provider [phone] Rhett Cortez MD Unavailable Reason for Visit * Reason Onset Date Comments PFT 01/24/2025 Encounter Details Date Type Department Care Team (Late st Contact Info) Description 01/24/2025 Telephone [facility] Internal Medicine [address] [place], [place] [phone] Antione Segura PA-C [address] [place] [address] [email or web address] PFT Social History Tobacco Use Types Packs/Day [...] high school, GED, job training, learning the Palestinian language, technical skills, or developing parenting skills)? [...] of Facility fax is being sent to: [facility] pulmonary Document(s) requested:all PFT testing with Graphing and [facility] CSS Agent (Please do not reply to this user, as this inbox is not monitored. Thank you.) Thank you. documented in this encounter Plan of Treatment Upcoming Encounters Date Type Department Care Team (Late st Contact Info) Description 03/08/2025 1:00 AM EDT Home Care Visit [facility] [address] [place] [address] Shakira Hand RN [address] [place] [address] 03/15/2025 Home Care Visit [facility] [address] [place], [place] [phone] Shakira Hand RN [address] [place] [address] 03/22/2025 1:00 AM EDT Home Care Visit [facility] [address] [place], [place] [phone] Shakira Hand RN [address] [place] [address] 03/28/2025 9:40 AM EDT Office Visit [facility] Internal Medicine [address] [place] [address] Antione Segura PA-C [address] [place] [address] 03/29/2025 2:00 AM EDT Home Care Visit [facility] [address] [place] [phone] Shakira Hand RN [address] [place] [address] 04/05/2025 2:00 AM EDT Home Care Visit [facility] [address] [place] [phone] Shakira Hand RN [address] [place] [address] 04/12/2025 1:30 AM EDT Home Care Visit [facility] [address] [place] [phone] Shakira Hand RN [address] [place] [address] 04/19/2025 12:30 AM EST Home Care Visit [facility] [address] [place] [phone] Shakira Hand RN [address] [place] [address] 04/25/2025 Appointment [facility] [address] [place] [phone] Shakira Hand RN [address] [place] [address] 06/25/2025 9:30 AM EST Telemedicine [facility] [place] [address] Jn Cardoza MD [address] [place] [address] documented as of this encounter Visit Diagnoses Not on filedocumented in this encounter Additional Health Concerns Assessment Noted Time PHQ-9 Depression Total Score: 025 9:08 PM EDT PHQ-2 Depression Total Score: 12/28/19 25 9:08 PM EDT documented as of this encounter Care Teams Data Conversion Developer Relationship Specialty Start Date End Date Antione Segura PA-C [address] [place] [address] PCP - General Physician Cad Intern 10/12/24 Jn Cardoza MD [address] [place] [address] Neurology 02/03/24 Denys Henriquez MD [address] [place] [address] [place] [address] Pulmonary Disease 02/03/24 Rhett Cortez MD [address] [place] [address] Insurance Assigned Provider 01/20/25 documented as of this encounter Additional Source Comments The information contained in this document represents components of the legal health record. It is not the complete legal health record.[facility]
--- OUTSIDE RECORDS SUMMARY | 2025-03-01 17:22 | XMS_ITS | Encounter Summary ---
Author Organization [facility] Address [address] [place] [address] Phone Care Team Providers Care Surface Supply Breathing Apparatus Name Role Phone Lang Germain MD Unavailable Jennifer Duke RADIO PRESENTER Primary Care Provider Sirisha Huertas RN BARIATRIC Primary Care Provider Jn Cardoza MD Unavailable Denys Henriquez MD Unavailable [phone] Liyah Patterson MD Unavailable Liyah Patterson MD Primary Care Provider [phone] Antione Segura PA-C Primary Care Provider [phone] Rhett Cortez MD Unavailable Encounter Details Date Type Department Care Team (Late st Contact Info) Description 11/27/2021 Procedure [facility], [address] [place] [address] Social History Tobacco Use Types Packs/Day Years [...] [facility] [address] [place] [address] Shakira Hand RN [address] [place] [address] 03/15/2025 [facility] [address] [place] [address] Shakira Hand RN [address] [place] [address] 03/22/2025 1:00 AM EDT [facility] [address] [place] [address] Shakira Hand RN [address] [place] [address] 03/28/2025 9:40 AM EDT Office Visit [facility] Internal Medicine [address] [place], [place] [phone] Antione Segura PA-C [address] [place], [place] [phone] 03/29/2025 2:00 AM EDT Home Care Visit [facility] [address] [place] [phone] Shakira Hand RN [address] [place] [address] 04/05/2025 2:00 AM EDT Home Care Visit [facility] [address] [place] [phone] Shakira Hand RN [address] [place] [address] 04/12/2025 1:30 AM EDT Home Care Visit [facility] [address] [place] [phone] Shakira Hand RN [address] [place] [address] 04/19/2025 12:30 AM EST Home Care Visit [facility] [address] [place] [phone] Shakira Hand, HUA [address] [place] [address] 04/25/2025 Appointment [facility] [address] [place] [phone] Shakira Hand RN [address] [place] [address] 06/25/2025 9:30 AM EST Telemedicine [facility] Neurology [address] [place] [address] Jn Cardoza MD [address] [place] [address], 2nd [place] [address] documented as of this encounter Visit Diagnoses Not on filedocumented in this encounter Additional Health Concerns Assessment Noted Time PHQ-2 Depression Total Score: 0 05/25/20 19 9:02 AM EST documented as of this encounter Care Teams Surface Supply Breathing Apparatus Relationship Specialty Start Date End Date Jennifer Duke, RADIO PRESENTER [address] [place] [address] [email or web address] PCP - General Family Medicine 01/31/20 06/22/23 Sirisha Huertas FNP [address] [place] [address] [email or web address] PCP - General Nurse Practitioner 06/23/23 08/03/24 Liyah Patterson MD [address] [place] [address] [email or web address] PCP - General Family Medicine 08/04/24 10/11/24 Antione Segura PA-C [address] [place] [address] [email or web address] PCP - General Physician Punch Box Tender 10/12/24 Lang Germain MD [address] [place] [address] [email or web address] Insurance Assigned Provider 09/18/23 02/19/24 Jn Cardoza MD [address] [place] [address], 2nd [place] [address] Neurology 02/03/24 Denys Henriquez MD [address] [place] [address] [place] [address] Pulmonary Disease 02/03/24 Liyah Patterson MD [address] [place] [address] [email or web address] Insurance Assigned Provider 02/19/24 01/20/25 Rhett Cortez MD [address] [place] [address] [email or web address] Insurance Assigned Provider 01/20/25 documented as of this encounter Additional Source Comments The information contained in this document represents components of the legal health record. It is not the complete legal health record.[facility]
--- OUTSIDE RECORDS SUMMARY | 2025-03-01 17:22 | XMS_ITS | Encounter Summary ---
Author Organization [facility] Address [address] [place] [address] Phone Care Team Providers Care Engine Cleaner Name Role Phone Lang Germain MD Unavailable Jennifer Duke TRAILER SECTIONS ASSEMBLER Primary Care Provider Sirisha Huertas BODY AND FRAME TECHNICIAN Primary Care Provider Jn Cardoza MD Unavailable Denys Henriquez MD Unavailable Liyah Patterson MD Unavailable Liyah Patterson MD Primary Care Provider [phone] Antione Segura PA-C Primary Care Provider [phone] Rhett Cortez MD Unavailable Encounter Details Date Type Department Care Team (Late st Contact Info) Description 02/25/2023 Procedure Pass [facility], [address] [address] Social History Tobacco Use Types Packs/Day Years Used Date Smoking Tobacco: Every Day Cigarettes 0.7 43.3 Started: 11/25/1981 Passive Smoke Exposure: Never [...] high school, GED, job training, learning the Swedish language, technical skills, or developing parenting skills)? [...] Care Visit [facility] [address] [place] [phone] Shakira Hand RN [address] [place] [address] [email or web address] 03/15/2025 Home Care Visit [facility] [address] [place] [phone] Shakira Hand RN [address] [place] [address] [email or web address] 03/22/2025 1:00 AM EDT Home [facility] Visit [facility] [address] [place] [phone] Shakira Hand RN [address] [place] [address] 03/28/2025 9:40 AM EDT Office Visit [facility] [place] Internal Medicine [address] [place] [address] Antione Segura PA-C [address] [place] [address] [email or web address] 03/29/2025 2:00 AM EDT Home Care Visit [facility] [address] [place] [phone] Shakira Hand RN [address] [place] [address] 04/05/2025 2:00 AM EDT Home Care Visit [facility] [address] [place] [phone] Shakira Hand RN [address] [place] [address] 04/12/2025 1:30 AM EDT Home Care Visit [facility] [address] [place] [phone] Shakira Hand RN [address] [place] [address] 04/19/2025 12:30 AM EST Home Care Visit [facility] [address] [place] [phone] Shakira Hand RN [address] [place] [address] 04/25/2025 Appointment [facility] [address] [place] [phone] Shakira Hand RN [address] [place] [address] 06/25/2025 9:30 AM EST Telemedicine [facility] Neurology [address] [place] [address] Jn Cardoza MD [address] [place] [address] documented as of this encounter Visit Diagnoses Not on filedocumented in this encounter Additional Health Concerns Assessment Noted Time PHQ-9 Depression Total Score: 21 023 12:35 PM EDT PHQ-2 Depression Total Score: 2 02/19/20 23 6:55 PM EDT documented as of this encounter Care Teams Engine Cleaner Relationship Specialty Start Date End Date Jennifer Duke, [place] [address] [place] [address] [email or web address] PCP - General Family Medicine 01/31/20 06/22/23 Sirisha Huertas FNP [address] [place] [address] [email or web address] PCP - General Nurse Practitioner 06/23/23 08/03/24 Liyah Patterson MD [address] [place] [address] [email or web address] PCP - General Family Medicine 08/04/24 10/11/24 Antione Segura PA-C [address] [place] [address] [email or web address] PCP - General Physician Apron Cleaner 10/12/24 Lang Germain MD [address] [place] [address] [email or web address] Insurance Assigned Provider 09/18/23 02/19/24 Jn Cardoza MD [address] [facility], 2nd [place] [address] [email or web address] Neurology 02/03/24 Denys Henriquez MD [address] [place] [address] [place] [address] Pulmonary Disease 02/03/24 Liyah Patterson MD [address] [place] [address] [email or web address] Insurance Assigned Provider 02/19/24 01/20/25 Rhett Cortez MD [address] [place] [address] [email or web address] Insurance Assigned Provider 01/20/25 documented as of this encounter Additional Source Comments The information contained in this document represents components of the legal health record. It is not the complete legal health record.[facility]
--- OUTSIDE RECORDS SUMMARY | 2025-03-01 17:22 | XMS_ITS | Clinical Summary ---
Author Organization [facility] Address [address] [id number] Care Team Providers Care Gridcap Machine Operator Name Role Phone Antione Segura Primary Care Provider [phone] Allergies Active Allergy Reactions Criticality Noted Date [...] Type Department Care Team Description 01/29/2025 Telephone [facility] [address] [place] [address] Linotype Operator: Federico Hill Telephone Intake, Staff PAC Order Request; Dr. 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 Procedure Name Priority Date/Time Associated Diagnosis Comments LAB - SCANNED 01/10/2025 AMB EXTERNAL XR CHEST, OUTSI DE RESULT 01/04/2025 AMB EXTERNAL ANGIOGRAM, OUTS YUN RESULT 12/21/[address] CHEST, OUTSI DE RESULT 11/30/2024 from Last 3 Months Results * Due to [place] [employer] law, this organization might not be sharing [...] Final Result from Last 3 Months Insurance [facility] HMO/POS Care Teams Gridcap Machine Operator Relationship Specialty Start Date End Date Antione Segura PA [address] [place] [address] PCP - General Emergency Medicine 01/10/25
--- OUTSIDE RECORDS SUMMARY | 2025-03-01 17:23 | XMS_ITS | Encounter Summary ---
Author Organization [facility] Address [address] [place] [address] Phone Care Team Providers Care Elevator Repairer Name Role Phone Jn Cardoza MD Unavailable Denys Henriquez MD Unavailable Antione Segura PA-C Primary Care Provider Rhett Cortez MD Unavailable Encounter Details Date Type Department Care Team (Late st Contact Info) Description 02/20/2025 Orders Only [facility] Internal Medicine [address] [place] [address] Provider, MD Omar [address] [place] [address] Social History Tobacco Use Types Packs/Day [...] high school, GED, job training, learning the Ethiopian language, technical skills, or developing parenting skills)? [...] Care Visit [facility] [address] [place] [phone] Shakira Hand RN [address] [place] [address] 03/15/2025 Home Care Visit [facility] [address] [place] [phone] Shakira Hand RN [address] [place] [address] 03/22/2025 1:00 AM EDT Home Care Visit [facility] [address] [place] [phone] Shakira Hand RN [address] [place] [address] 03/28/2025 9:40 AM EDT Office Visit [facility] Internal Medicine [address] [place] [address] Antione Segura PA-C [address] [place] [address] 03/29/2025 2:00 AM EDT Home Care Visit [facility] [address] [place] [phone] Shakira Hand RN [address] [place] [address] 04/05/2025 2:00 AM EDT Home Care Visit [facility] [address] [place] [phone] Shakira Hand RN [address] [place] [address] 04/12/2025 1:30 AM EDT Home Care Visit [facility] [address] [place] [phone] Shakira Hand RN [address] [place] [address] 04/19/2025 12:30 AM EST Home Care Visit [facility] [address] [place] [phone] Shakira Hand RN [address] [place] [address] 04/25/2025 Appointment [facility] [address] [place] [address] Shakira Hand RN [address] [place] [address] 06/25/2025 9:30 AM EST Telemedicine [facility] Neurology [address] [place] [address] Jn Cardoza MD [address] [place] [address], [address] [place] [address] [email or web address] documented as of this encounter Procedures Procedure [...] documented as of this encounter Care Teams Elevator Repairer Relationship Specialty Start Date End Date Antione Segura PA-C [address] [place] [address] PCP - General Physician Oracle Software Engineer 10/12/24 Jn Cardoza MD [address] [place] [address], 2nd [place] [address] Neurology 02/03/24 Denys Henriquez MD [address] [place] [address] [place] [address] Pulmonary Disease 02/03/24 Rhett Cortez MD [address] [place] [address] [email or web address] Insurance Assigned Provider 01/20/25 documented as of this encounter Additional Source Comments The information contained in this document represents components of the legal health record. It is not the complete legal health record.[facility]
--- OUTSIDE RECORDS SUMMARY | 2025-03-01 17:23 | XMS_ITS | Encounter Summary ---
Author Organization [facility] Address [address] [place] [address] Phone Care Team Providers Care Bicycle Inspector Name Role Phone Jn Cardoaz MD Unavailable Denys Henriquez MD Unavailable Antione SeguraC Primary Care Provider Rhett Cortez MD Unavailable Reason for Visit * Reason Onset Date Comments Medication Refill 02/27/2025 Encounter Details Date Type Department Care Team (Late st Contact Info) Description 02/27/2025 Refill [facility] [place] Internal Medicine [address] [place], [place] [phone] Antione Segura PA-C [address] [place] [address] [email or web address] Medication Refill Social History Tobacco Use Types Packs/Day Years [...] as of this encounter Progress Notes * Danuta Cameron MA - 02/27/2025 12:25 PM EDT Images from the original note were not included. Pt LM on refill line requesting for refill on Oxycodone Rx to [facility] - At least one Rx mismatch identified. Original(s) may be discontinued, , or different strength/form. Review required. Rx Care Gap Status - Instructions for Clinical Staff (prescriber discretion applies): > Mismatch review guide > Check PDMP for all controlled medication requests. Visit Info Last visit: 02/15/2025 Antione Segura PA-C - Internal Medicine [facility] > Requested f/u: Return in about 6 weeks (around 03/29/2025) for Recheck -40 minute modifier . Upcoming visit: 03/28/2025 Antione Segura PA-C - Internal Medicine [facility] ACTIONS TAKEN BY Danuta Cameron MA - Checked PDMP/[place]. Opioid Rx Protocol - oxycodone HCl Rx mismatch - Original discontinued, , or different strength/form. Criteria for reference: Controlled substance renewals are at prescriber discretion. Pain mgmt profile/toxicology (urine/saliva) may be considered annually or more frequently if indicated. In-person visit in past 2 years: Yes (Last in-person visit: 02/15/2025 (Antione Segura PA-C - [facility] Visit in past 4 months: Yes No benzodiazepine on medication list Opioid agreement on file: Yes Pain management profile/toxicology in past 12 months: No documented in this encounter Plan of Treatment Upcoming Encounters Date Type Department Care Team (Late st Contact Info) Description 03/08/2025 1:00 AM EDT [facility] [address] [place] [phone] Shakira Hand RN [address] [place] [address] 03/15/2025 Home Care Visit [facility] [address] [place] [phone] Shakira Hand RN [address] [place] [address] 03/22/2025 1:00 AM EDT Home [facility] [address] [place] [phone] Shakira Hand RN [address] [place] [address] 03/28/2025 9:40 AM EDT [facility] Visit [facility] [address] [place] [address] Antione Segura PA-C [address] [place] [address] 03/29/2025 2:00 AM EDT Home Care Visit [facility] [address] [place] [phone] Shakira Hand RN [address] [place] [address] 04/05/2025 2:00 AM EDT Home Care Visit [facility] [address] [place] [phone] Shakira Hand RN [address] [place] [address] 04/12/2025 1:30 AM EDT Home Care Visit [facility] [address] [place] [phone] Shakira Hand RN [address] [place] [address] 04/19/2025 12:30 AM EST Home Care Visit [facility] [address] [place] [phone] Shakira Hand RN [address] [place] [address] 04/25/2025 Appointment [facility] [address] [place] [phone] Shakira Hand RN [address] [place] [address] 06/25/2025 9:30 AM EST Telemedicine [facility] Neurology [address] [place] [address] Jn Cardoza MD [address] [place] [address], [address] [place] [address] documented as of this encounter Visit Diagnoses Diagnosis Sacroiliitis, not elsewhere classified documented in this encounter Additional Health Concerns Assessment Noted Time PHQ-9 Depression Total Score: 15 025 9:44 AM EDT PHQ-2 Depression Total Score: 4 02/01/20 25 9:44 AM EDT documented as of this encounter Care Teams Bicycle Inspector Relationship Specialty Start Date End Date Antione Segura PA-C [address] [place] [email or web address] PCP - General Physician Coagulating Drying Supervisor 10/12/24 Jn Cardoza MD [address] [facility], 2nd [place] [address] [email or web address] Neurology 02/03/24 Denys Henriquez MD [address] [place] [address] [place] [address] Pulmonary Disease 02/03/24 Rhett Cortez MD [address] [place] [address] [email or web address] Insurance Assigned Provider 01/20/25 documented as of this encounter Additional Source Comments The information contained in this document represents components of the legal health record. It is not the complete legal health record.[facility]
--- OUTSIDE RECORDS SUMMARY | 2025-03-01 17:23 | XMS_ITS | Encounter Summary ---
Author Organization [facility] Address [address] [place] [address] Phone Care Team Providers Care Manager Control Name Role Phone Lang Germain MD Unavailable Jennifer Duke E COMMERCE ARCHITECT Primary Care Provider Sirisha Huertas HARDWOOD FLOOR SANDER Primary Care Provider [phone] Jn Cardoza MD Unavailable Denys Henriquez MD Unavailable [phone] Liyah Patterson MD Unavailable Liyah Patterson MD Primary Care Provider [phone] Antione Segura PA-C Primary Care Provider [phone] Rhett Cortez MD Unavailable Encounter Details Date Type Department Care Team (Late st Contact Info) Description 05/06/2021 Procedure Pass [facility], [address] [address] Social History Tobacco Use Types Packs/Day Years [...] Care Visit [facility] [address] [place] [phone] Shakira Hand RN [address] [place] [address] 03/15/2025 Home Care Visit [facility] [address] [place] [phone] Shakira Hand RN [address] [place] [address] 03/22/2025 1:00 AM EDT Home Care Visit [facility] [address] [place] [phone] Shakira Hand RN [address] [place] [address] 03/28/2025 9:40 AM EDT Office Visit [facility] [place] [facility] 40 [place] [address] Antione Segura PA-C 40 [place] [address] 03/29/2025 2:00 AM EDT Home Care Visit [facility] [address] [place] [phone] Shakira Hand RN [address] [place] [address] 04/05/2025 2:00 AM EDT Home Care Visit [facility] [address] [place] [phone] Shakira Hand RN [address] [place] [address] 04/12/2025 1:30 AM EDT Home Care Visit [facility] [address] [place] [phone] Shakira Hand RN [address] [place] [address] 04/19/2025 12:30 AM EST Home Care Visit [facility] [address] [place] [phone] Shakira Hand RN [address] [place] [address] 04/25/2025 Appointment [facility] [address] [place] [phone] Shakira Hand RN [address] [place] [address] 06/25/2025 9:30 AM EST Telemedicine [facility] Neurology [address] [place] [address] Jn Cardoza MD [address] [place] [address], 2[address] [place] [address] [email or web address] documented as of this encounter Visit Diagnoses Not on filedocumented in this encounter Additional Health Concerns Assessment Noted Time PHQ-2 Depression Total Score: 0 05/25/20 19 9:02 AM EST documented as of this encounter Care Teams Manager Control Relationship Specialty Start Date End Date Jennifer Duke, E COMMERCE ARCHITECT [address] [place] [address] [email or web address] PCP - General Family Medicine 01/31/20 06/22/23 Sirisha Huertas FNP [address] [place] [address] [email or web address] PCP - General Nurse Practitioner 06/23/23 08/03/24 Liyah Ptaterson MD [address] [place] [address] [email or web address] PCP - General Family Medicine 08/04/24 10/11/24 Antione Segura PA-C [address] [place] [address] [email or web address] PCP - General Physician Photoengraving Proofer 10/12/24 Lang Germain MD [address] [place] [address] [email or web address] Insurance Assigned Provider 09/18/23 02/19/24 Jn Cardoza MD [address] [place] [address], 2nd [place] [address] [email or web address] 02/03/24 Denys Henriquez MD [address] [place] [address] [place] [address] Pulmonary Disease 02/03/24 Liyah Patterson MD [address] [place] [address] [email or web address] Insurance Assigned Provider 02/19/24 01/20/25 Rhett Cortez MD [address] [place] [address] [email or web address] Insurance Assigned Provider 01/20/25 documented as of this encounter Additional Source Comments The information contained in this document represents components of the legal health record. It is not the complete legal health record.[facility]
--- OUTSIDE RECORDS SUMMARY | 2025-03-01 17:23 | XMS_ITS | Encounter Summary ---
Author Organization [facility] Address [address] [place] [address] Phone Care Team Providers Care Electronic Pagination System Operator Name Role Phone Jn Cardoza MD Unavailable Denys Henriquez MD Unavailable Antione Segura PA-C Primary Care Provider [phone] Rhett Cortez MD Unavailable Encounter Details Date Type Department Care Team (Late st Contact Info) Description 03/01/2025 Refill [facility] [address] [place] [address] [phone] Vania Matamoros MA [address] [place] [address] [email or web address] Social [...] high school, GED, job training, learning the Singaporean language, technical skills, or developing parenting skills)? [...] as of this encounter Progress Notes * Vania Matamoros MA - 03/01/2025 2:41 PM EDT Patient called and left a message stating that they take Oxcarbazepine 300 mg tablet however they have mistakenly only been taking 1 tablet and their prescription says to take 1.5 tablets BID. They state they have been doing well and would like an update prescription refecting taking 1 tablet BID. Rx Care Gap Status - Instructions for Clinical Staff (prescriber discretion applies): > Mismatch review guide > At least one request does not meet full criteria. Specifics below. Visit Info Last visit: 10/06/2024 Jn Cardoza MD - Neurology [facility] [place] > Requested f/u: Return in about 4 months (around 02/05/2025). Upcoming visit: 06/25/2025 Jn Cardoza MD - Neurology [facility] [place] ACTIONS TAKEN BY Vania Matamoros MA - Criteria met. Antiepileptic With Lab Monitoring Rx Protocol - oxcarbazepine Criteria not met; renew for up to 3 months. Visit in the past 12 months: Yes Clinical criteria: - BMP within past year: Yes - LFTs within past year: Yes - CBC within past year: Yes - Above labs are normal: No Lab Results Component Value Date SODIUM 140 12/14/2024 Potassium level - External 3.8 02/08/2025 CHLORIDE 97 12/14/2024 CO2 34 12/14/2024 BUN 19 12/14/2024 Creatinine, serum - External 0.66 (*) 02/08/2025 EGFR 98 12/14/2024 Lab Results Component Value Date Creatinine, serum - External 0.66 (*) 02/08/2025 Creatinine, serum - External 0.86 12/21/2024 CREATININE 0.70 12/14/2024 EGFR 98 12/14/2024 EGFR 103 10/21/2022 EGFR 103 02/27/2022 Lab Results Component Value Date WBC 14.11 (H) 12/14/2024 HCT 40.1 12/14/2024 HGB 12.7 12/14/2024 PLT 394 12/14/2024 Lab Results Component Value Date AST 11 12/14/2024 ALT 10 12/14/2024 ALKALINE PHOSPHATASE 63 12/14/2024 TOTAL BILIRUBIN <0.2 12/14/2024 documented in this encounter Plan of Treatment Upcoming Encounters Date Type Department Care Team (Late st Contact Info) Description 03/08/2025 1:00 AM EDT Home Care Visit [facility] [address] [place] [phone] Shakira Hand RN [address] [place] [address] 03/15/2025 Home Care Visit [facility] [address] [place] [address] Shakira Hand RN [address] [place] [address] 03/22/2025 1:00 AM EDT Home Care Visit [facility] [address] [place] [address] Shakira Hand RN [address] [place] [address] 03/28/2025 9:40 AM EDT Office Visit [facility] [place] [facility] 40 [place] [address] Antione Segura PA-C 40 [place], [place] [phone] 03/29/2025 2:00 AM EDT Home Care Visit [facility] [address] [place] [phone] Shakira Hand RN [address] [place] [address] 04/05/2025 2:00 AM EDT Home Care Visit [facility] [address] [place] [phone] Shakira Hand RN [address] [place] [address] 04/12/2025 1:30 AM EDT Home Care Visit [facility] [address] [place] [phone] Shakira Hand RN [address] [place] [address] 04/19/2025 12:30 AM EST Home Care Visit [facility] [address] [place] [phone] Shakira Hand, HUA [address] [place] [address] 04/25/2025 Appointment [facility] [address] [place] [phone] Shakira Hand, HUA [address] [place] [address] 06/25/2025 9:30 AM EST Telemedicine [facility] Neurology [address] [place] [address] Jn Cardoza MD [address] [place] [address], 2[address] [place] [address] [email or web address] documented as of this encounter Visit Diagnoses Diagnosis Trigeminal neuralgia of left side of face Atypical facial pain Atypical face pain documented in this encounter Additional Health Concerns Assessment Noted Time PHQ-9 Depression Total Score: 15 025 9:44 AM EDT PHQ-2 Depression Total Score: 4 02/01/20 9:44 AM EDT documented as of this encounter Care Teams Electronic Pagination System Operator Relationship Specialty Start Date End Date Antione Segura PA-C [address] [place] [address] [email or web address] PCP - General Physician Big Data Platform Architect 10/12/24 Jn Cardoza MD [address] [place] [address], 2nd [place] [address] Neurology 02/03/24 Denys Henriquez MD [address] [place] [address] [place] [address] Pulmonary Disease 02/03/24 Rhett Cortez MD [address] [place] [address] [email or web address] Insurance Assigned Provider 01/20/25 documented as of this encounter Additional Source Comments The information contained in this document represents components of the legal health record. It is not the complete legal health record.[facility]
--- OUTSIDE RECORDS SUMMARY | 2025-03-01 17:23 | XMS_ITS | Encounter Summary ---
Author Organization [facility] Address [address] [place] [address] Phone Care Team Providers Care Damper Fitter Name Role Phone Charbel Webber MD Unavailable Alverto Gandara MD Unavailable Maikel Rawls MD Unavailable [phone] Lang Germain MD Unavailable Jennifer Duke TURN OUT WORKER Primary Care Provider Lang Germain MD Primary Care Provider Jennfier Duke TURN OUT WORKER Unavailable [phone] Jennifer Duke TURN OUT WORKER Primary Care Provider Lang Germain MD Primary Care Provider Jennifer Duke TURN OUT WORKER Primary Care Provider Sirisha Huertas RETAIL PERSONAL BANKER Primary Care Provider [phone] Jn Cardoza MD Unavailable Denys Henriquez MD Unavailable Liyah Patterson MD Unavailable Liyah Patterson MD Primary Care Provider Antione Segura PA-C Primary Care Provider [phone] Rhett Cortez MD Unavailable Encounter Details Date Type Department Care Team (Late st Contact Info) Description 03/20/2019 Telephone [facility] [place] [facility] [address] [place] [address] Jennifer Duke, TURN OUT WORKER 26 [facility] 6 [place] [address] Social History Tobacco Use Types Packs/Day Years [...] 1:00 AM EDT Home Care Visit [facility] [address] [place], [place] [phone] Shakira Hand RN [address] [place] [address] 03/15/2025 Home Care Visit [facility] [address] [place], [place] [phone] Shakira Hand RN [address] [place] [address] 03/22/2025 1:00 AM EDT Home Care Visit [facility] [address] [place], [place] [phone] Shakira Hand RN [address] [place] [address] 03/28/2025 9:40 AM EDT Office Visit [facility] [place] [facility] 40 [place] [address] Antione Segura PA-C 40 [place] [address] [email or web address] 03/29/2025 2:00 AM EDT Home Care Visit [facility] [address] [place] [phone] Shakira Hand RN [address] [place] [address] 04/05/2025 2:00 AM EDT Home Care Visit [facility] [address] [place] [phone] Shakira Hand RN [address] [place] [address] 04/12/2025 1:30 AM EDT Home Care Visit [facility] [address] [place] [phone] Shakira aHnd RN [address] [place] [address] 04/19/2025 12:30 AM EST Home Care Visit [facility] [address] [place] [phone] Shakira Hand RN [address] [place] [address] 04/25/2025 Appointment [facility] [address] [place] [phone] Shakira Hand RN [address] [place] [address] 06/25/2025 9:30 AM EST Telemedicine [facility] Neurology [address] [place] [address] Jn Cardoza MD 22 [facility], 2nd [place] [address] [email or web address] documented as of this encounter Visit Diagnoses Not on filedocumented in this encounter Additional Health Concerns Assessment Noted Time PHQ-2 Depression Total Score: 0 11/18/19 19 2:05 PM EDT documented as of this encounter Care Teams Damper Fitter Relationship Specialty Start Date End Date Jennifer Duke TURN OUT WORKER [address] [place] [address] PCP - General Family Medicine 12/14/18 11/12/19 Lang Germain MD [address] [place] [address] PCP - General Internal Medicine 11/13/19 12/03/19 Jennifer Duke TURN OUT WORKER [address] [place] [address] PCP - General Family Medicine 12/04/19 01/23/20 Lang Germain MD 40 [place] [address] PCP - General Internal Medicine 01/24/20 01/30/20 Jennifer Duke TURN OUT WORKER [address] [place] [address] PCP - General Family Medicine 01/31/20 06/22/23 Sirisha Huertas FNP [address] [address] [email or web address] PCP - General Nurse Practitioner 06/23/23 08/03/24 Liyah Patterson MD [address] [address] [email or web address] PCP - General Family Medicine 08/04/24 10/11/24 Antione Segura PA-C [address] [place] [address] [email or web address] PCP - General Physician Wet Process Head [place] 10/12/24 Charbel Webber MD 22 [facility] [place] [address] [email or web address] Historical LMR Provider 04/01/17 0 Alverto Gandara MD [address] [place] [address], 2nd [place] [address] Historical LMR Provider 04/01/17 12/03/19 Maikel Rawls MD [address] [place] [address] [email or web address] Historical LMR Provider 04/01/17 12/03/19 Lang Germain MD [address] [place] [address] Insurance Assigned Provider 09/18/23 02/19/24 Jennifer Duke NP 40 [place] [address] Nurse Practitioner Family Medicine 11/13/19 01/30/20 Jn Cardoza MD 22 [facility], 2nd [place] [address] [email or web address] Neurology 02/03/24 Denys Henriquez MD [address] [place] [address] [place] [address] Pulmonary Disease 02/03/24 Liyah Patterson MD 15 [facility] [address] [place] [address] [email or web address] Insurance Assigned Provider 02/19/24 01/20/25 Rhett Cortez MD 40 [place] [address] Insurance Assigned Provider 01/20/25 documented as of this encounter Additional Source Comments The information contained in this document represents components of the legal health record. It is not the complete legal health record.[facility]
--- OUTSIDE RECORDS SUMMARY | 2025-03-01 17:23 | XMS_ITS | Encounter Summary ---
Author Organization [facility] Address [address] [facility] [address] [place] [address] Phone Care Team Providers Care Maintenance Technician 3Rd Shift Name Role Phone Jn Cardoza MD Unavailable Denys Henriquez MD Unavailable Antione Segura PA-C Primary Care Provider Rhett Cortez MD Unavailable Encounter Details Date Type Department Care Team (Late st Contact Info) Description 02/26/2025 Episode Documentatio n Update [facility] [address] [place] [phone] Margy Rubalcava 168 [place] [address] [email or web address] Social History Tobacco Use Types [...] high school, GED, job training, learning the Slovak language, technical skills, or developing parenting skills)? [...] Care Visit [facility] [address] [place] [phone] Shakira Hand RN [address] [place] [address] 03/15/2025 Home Care Visit [facility] [address] [place] [phone] Shakira Hand RN [address] [place] [address] 03/22/2025 1:00 AM EDT Home Care Visit [facility] [address] [place] [phone] Shakira Hand RN [address] [place] [address] 03/28/2025 9:40 AM EDT Office Visit [facility] [place] [facility] 40 [place] [address] Antione Segura PA-C 40 [place] [address] 03/29/2025 2:00 AM EDT Home Care Visit [facility] [address] [place] [phone] Shakira Hand RN [address] [place] [address] 04/05/2025 2:00 AM EDT Home Care Visit [facility] [address] [place] [phone] Shakira Hand RN [address] [place] [address] 04/12/2025 1:30 AM EDT Home Care Visit [facility] [address] [place] [phone] Shakira Hand RN [address] [place] [address] 04/19/2025 12:30 AM EST Home Care Visit [facility] [address] [place] [phone] Shakira Hand RN [address] [place] [address] 04/25/2025 Appointment [facility] [address] [place] [phone] Shakira Hand RN [address] [place] [address] 06/25/2025 9:30 AM EST Telemedicine [facility] Neurology [address] [place] [address] Jn Cardoza MD [address] [place] [address], 2nd [place] [address] documented as of this encounter Visit Diagnoses Not on filedocumented in this encounter Additional Health Concerns Assessment Noted Time PHQ-9 Depression Total Score: 15 025 9:44 AM EDT PHQ-2 Depression Total Score: 4 02/01/20 25 9:44 AM EDT documented as of this encounter Care Teams Maintenance Technician 3Rd Shift Relationship Specialty Start Date End Date Antione Segura PA-C [address] [place] [address] [email or web address] PCP - General Physician Manager Operations 10/12/24 Jn Cardoza MD [address] [place] [address], 2nd [place] [address] [email or web address] Neurology 02/03/24 Denys Henriquez MD [address] [place] [address] [place] [address] Pulmonary Disease 02/03/24 Rhett Cortez MD [address] [place] [address] [email or web address] Insurance Assigned Provider 01/20/25 documented as of this encounter Additional Source Comments The information contained in this document represents components of the legal health record. It is not the complete legal health record.[facility]
--- OUTSIDE RECORDS SUMMARY | 2025-03-01 17:23 | XMS_ITS | Encounter Summary ---
Author Organization [facility] Address [address] [address] Phone Care Team Providers Care Sand Mill Operator Facing Sand Name Role Phone Jn Cardoza MD Unavailable Denys Henriquez MD Unavailable Antione Segura PA-C Primary Care Provider Rhett Cortez MD Unavailable Encounter Details Date Type Department Care Team (Late st Contact Info) Description 02/09/2025 Home Health Resumption of Care Planning [facility] [address] [place] [phone] Koki Simons RN [address] [place] [address] [email or web address] Social History Tobacco Use Types Packs/Day Years [...] high school, GED, job training, learning the Chinese language, technical skills, or developing parenting skills)? [...] Care Visit [facility] [address] [place] [phone] Shakira Hand RN [address] [place] [address] 03/15/2025 Home Care Visit [facility] [address] [place] [phone] Shakira Hand RN [address] [place] [address] 03/22/2025 1:00 AM EDT Home Care Visit [facility] [address] [place] [phone] Shakira Hand RN [address] [place] [address] 03/28/2025 9:40 AM EDT Office Visit [facility] [place] [facility] 40 [place] [address] Antione Segura PA-C 40 [place], [place] [phone] 03/29/2025 2:00 AM EDT Home Care Visit [facility] [address] [place] [phone] Shakira Hand RN [address] [place] [address] 04/05/2025 2:00 AM EDT Home Care Visit [facility] [address] [place] [phone] Shakira Hand RN [address] [place] [address] 04/12/2025 1:30 AM EDT Home Care Visit [facility] [address] [place] [phone] Shakira Hand RN [address] [place] [address] 04/19/2025 12:30 AM EST Home Care Visit [facility] [address] [place] [phone] Shakira Hand RN [address] [place] [address] 04/25/2025 Appointment [facility] [address] [place] [phone] Shakira Hand RN [address] [place] [address] 06/25/2025 9:30 AM EST Telemedicine [facility] Neurology [address] [place] [address] Jn Cardoza MD [address] [place] [address], 2nd [place] [address] [email or web address] documented as of this encounter Visit Diagnoses Not on filedocumented in this encounter Additional Health Concerns Assessment Noted Time PHQ-9 Depression Total Score: 15 025 9:44 AM EDT PHQ-2 Depression Total Score: 4 02/01/20 25 9:44 AM EDT documented as of this encounter Care Teams Sand Mill Operator Facing Sand Relationship Specialty Start Date End Date Antione Segura PA-C [address] [place] [address] [email or web address] PCP - General Physician Nursing Staff Development Coordinator 10/12/24 Jn Cardoza MD [address] [place] [address], 2nd [place] [address] [email or web address] Neurology 02/03/24 Denys Henriquez MD [address] [place] [address] [place] [address] Pulmonary Disease 02/03/24 Rhett Cortez MD [address] [place] [address] [email or web address] Insurance Assigned Provider 01/20/25 documented as of this encounter Additional Source Comments The information contained in this document represents components of the legal health record. It is not the complete legal health record.[facility]
--- OUTSIDE RECORDS SUMMARY | 2025-03-01 17:23 | XMS_ITS | Encounter Summary ---
Author Organization [facility] Address [address] [place] [address] Phone Care Team Providers Care Medical Information Specialist Name Role Phone Charbel Webber MD Unavailable Alverto Gandara MD Unavailable [phone] Maikel Rawls MD Unavailable [phone] Lang Germain MD Primary Care Provider Jennifer Duke SUPERVISOR FEED MILL Primary Care Provider Lang Germain MD Primary Care Provider Jennifer Duke SUPERVISOR FEED MILL Primary Care Provider Lang Germain MD Primary Care Provider Jennifer Duke SUPERVISOR FEED MILL Primary Care Provider Lang Germain MD Unavailable Lang Germain MD Primary Care Provider Jennifer Duke SUPERVISOR FEED MILL Primary Care Provider Lang Germain MD Primary Care Provider Jennifer Duke SUPERVISOR FEED MILL Primary Care Provider Lang Germain MD Primary Care Provider [phone] Jennifer Duke SUPERVISOR FEED MILL Primary Care Provider [phone] Lang Germain MD Primary Care Provider [phone] Jennifer Duke SUPERVISOR FEED MILL Unavailable [phone] Jennifer Duke SUPERVISOR FEED MILL Primary Care Provider [phone] Lang Germain MD Primary Care Provider [phone] Jennifer Duke SUPERVISOR FEED MILL Primary Care Provider [phone] Aleksandar Sirishafrancisca Kendall MACHINE BINDING FOLDER Primary Care Provider [phone] Jn Cardoza MD Unavailable Denys Henriquez MD Unavailable [phone] Liyah Patterson MD Unavailable Liyah Patterson MD Primary Care Provider [phone] Antione Segura PA-C Primary Care Provider [phone] Rhett Cortez MD Unavailable Reason for Referral * MRI/CAT Scan - Closed Specialty Diagnoses / Procedures Referred By Contac t Referred To Contact Procedures CT Head Outside (No Interpretation) System, Provider Not In, PhD [address] [address] Referral ID Status Reason Start Date Expiration Date Visits Re quested Visits Authorized [id number] Closed 06/20/2018 06/20/2019 1 1 * MRI/CAT Scan - Closed Specialty Diagnoses / Procedures Referred By Contac t Referred To Contact Procedures CT Face Outside (No Interpretation) System, Provider Not In, PhD [address] [address] Referral ID Status Reason Start Date Expiration Date Visits Re quested Visits Authorized [id number] Closed 06/20/2018 06/20/2019 1 1 Encounter Details Date Type Department Care Team (Late st Contact Info) Description 06/20/2018 Ancillary Orders [facility],Outside Imaging [address] [place] [address] System, Provider Not In, [place] [address] Social History Tobacco Use Types Packs/Day Years [...] [facility] [address] [place] [phone] Shakira Hand RN [address] [place] [address] 03/15/2025 Home Care Visit [facility] [address] [place] [address] Shakira Hand RN [address] [place] [address] 03/22/2025 1:00 AM EDT Home Care Visit [facility] [address] [place] [address] Shakira Hand RN [address] [place] [address] 03/28/2025 9:40 AM EDT Office Visit [facility] [address] [place] [address] Antione Segura PA-C [address] [place], [place] [phone] 03/29/2025 2:00 AM EDT [facility] [address] [place] [phone] Shakira Hand, HUA [address] [place] [address] 04/05/2025 2:00 AM EDT Home [facility] Visit [facility] [address] [place] [phone] Shakira Hand RN [address] [place] [phone] 04/12/2025 1:30 AM EDT Home [facility] [address] [place] [phone] Shakira Hand RN [address] [place] [phone] 04/19/2025 12:30 AM EST Home [facility] [address] [place] [phone] Shakira Hand, HUA [address] [place] [address] 04/25/2025 Appointment [facility] [address] [place] [phone] Shakira Hand RN [address] [place] [address] 06/25/2025 9:30 AM EST Telemedicine [facility] Neurology [address] [place] [address] Jn Cardoza MD [facility] [address] [place] [address] documented as of this encounter Results * [...] as of this encounter Care Teams Medical Information Specialist Relationship Specialty Start Date End Date Lang Germain MD [address] [place] [address] PCP - General Internal Medicine 06/13/18 06/30/18 Jennifer Duke SUPERVISOR FEED MILL [address] [place] [address] PCP - General Family Medicine 07/01/18 08/02/18 Lang Germain MD [address] [place] [address] PCP - General Internal Medicine 08/03/18 09/07/18 Jennifer Duke NP [address] [place] [address] PCP - General Family Medicine 09/08/18 09/14/18 Lang Germain MD [address] [place] [address] [email or web address] PCP - General Internal Medicine 09/15/18 10/02/18 Jennifer Duke NP [address] [place] [address] [email or web address] PCP - General Family Medicine 10/03/18 10/05/18 Lang Germain MD [address] [place] [address] [email or web address] PCP - General Internal Medicine 10/06/18 10/12/18 Jennifer Duke NP [address] [place] [address] [email or web address] PCP - General Family Medicine 10/13/18 11/09/18 Lang Germain MD [address] [place] [address] [email or web address] PCP - General Internal Medicine 11/10/18 11/22/18 Jennifer Duke SUPERVISOR FEED MILL [address] [place] [address] [email or web address] PCP - General Family Medicine 11/23/18 11/30/18 Lang Germain MD [address] [place] [address] [email or web address] PCP - General Internal Medicine 12/01/18 12/13/18 Jennifer Duke, SUPERVISOR FEED MILL [address] [place] [address] [email or web address] PCP - General Family Medicine 12/14/18 11/12/19 Lang Germain MD [address] [place] [address] [email or web address] PCP - General Internal Medicine 11/13/19 12/03/19 Jennifer Duke NP [address] [place] [address] [email or web address] PCP - General Family Medicine 12/04/19 01/23/20 Lang Germain MD [address] [place] [address] [email or web address] PCP - General Internal Medicine 01/24/20 01/30/20 Jennifer Duke SUPERVISOR FEED MILL [address] [place] [address] [email or web address] PCP - General Family Medicine 01/31/20 06/22/23 Sirisha Huertas FNP [address] [address] [email or web address] PCP - General Nurse Practitioner 06/23/23 08/03/24 Liyah Patterson MD [address] [phone] [email or web address] PCP - General Family Medicine 08/04/24 10/11/24 Antione Segura PA-C [address] [place] [address] [email or web address] PCP - General Physician Securities Consultant 10/12/24 Charbel Webber MD [address] [place] [address], [facility] [address] [place] [address] [email or web address] Historical LMR Provider 04/01/17 0 Alverto Gandara MD [address] [place] [address] [email or web address] Historical LMR Provider 04/01/17 12/03/19 Maikel Rawls MD [address] [place] [address] [email or web address] Historical LMR Provider 04/01/17 12/03/19 Lang Germain MD [address] [place] [address] [email or web address] Insurance Assigned Provider 09/18/23 02/19/24 Jennifer Duke NP [address] [place] [address] [email or web address] Nurse Practitioner Family Medicine 11/13/19 01/30/20 Jn Cardoza MD [address] [place] [address] [email or web address] Neurology 02/03/24 Denys Henriquez MD [address] [place] [address] [place] [address] Pulmonary Disease 02/03/24 Liyah Patterson MD [address] [place] [address] [email or web address] Insurance Assigned Provider 02/19/24 01/20/25 Rhett Cortez MD [address] [place] [address] [email or web address] Insurance Assigned Provider 01/20/25 documented as of this encounter Additional Source Comments The information contained in this document represents components of the legal health record. It is not the complete legal health record.[facility]
--- OUTSIDE RECORDS SUMMARY | 2025-03-01 17:23 | XMS_ITS | Encounter Summary ---
Author Organization [facility] Address [address] [place] [address] Phone Care Team Providers Care Dielectric Press Operator Name Role Phone Lang Germain MD Unavailable Jennifer Duke FOURDRINIER MACHINE TENDER Primary Care Provider Sirisha Huertas BOWLING PIN SETTERS INSTALLER Primary Care Provider Jn Cardoza MD Unavailable Denys Henriquez MD Unavailable Liyah Patterson MD Unavailable Liyah Patterson MD Primary Care Provider [phone] Antione Segura PA-C Primary Care Provider Rhett Coretz MD Unavailable Encounter Details Date Type Department Care Team (Late st Contact Info) Description 06/30/2022 Procedure Pass [facility], Ct Scan - [address] [address] Social History Tobacco Use Types Packs/Day Years Used Date Smoking Tobacco: Every Day Cigarettes 0.7 43.3 Started: 11/25/1981 Smokeless Tobacco: Never Alcohol [...] Visit [facility] [address] [place] [phone] Shakira Hand RN [address] [place] [address] [email or web address] 03/15/2025 Home Care Visit [facility] [address] [place] [phone] Shakira Hand RN [address] [place] [phone] [email or web address] 03/22/2025 1:00 AM EDT Home [facility] Visit [facility] [address] [place] [phone] Shakira Hand RN [address] [place] [phone] [email or web address] 03/28/2025 9:40 AM EDT Office Visit [facility] [place] [facility] [address] [place] [address] Antione Segura PA-C [address] [place] [address] [email or web address] 03/29/2025 2:00 AM EDT Home Care Visit [facility] [address] [place] [phone] Shakira Hand RN [address] [place] [phone] 04/05/2025 2:00 AM EDT Home Care Visit [facility] [address] [place] [phone] Shakira Hand RN [address] [place] [address] 04/12/2025 1:30 AM EDT Home Care Visit [facility] [address] [place] [phone] Shakira Hand RN [address] [place] [address] 04/19/2025 12:30 AM EST Home Care Visit [facility] [address] [place] [phone] Shakira Hand RN [address] [place] [phone] 04/25/2025 Appointment [facility] [address] [place] [phone] Shakira Hand RN [address] [place] [phone] 06/25/2025 9:30 AM EST Telemedicine [facility] Neurology [address] [place] [address] Jn Cardoza MD [address] [facility], 2nd [place] [address] [email or web address] documented as of this encounter Visit Diagnoses Not on filedocumented in this encounter Additional Health Concerns Assessment Noted Time PHQ-9 Depression Total Score: 18 023 8:53 AM EST PHQ-2 Depression Total Score: 6 06/26/19 23 8:53 AM EST documented as of this encounter Care Teams Dielectric Press Operator Relationship Specialty Start Date End Date Jennifer Duke, FOURDRINIER MACHINE TENDER [address] [place] [address] [email or web address] PCP - General Family Medicine 01/31/20 06/22/23 Sirisha Huertas, BOWLING PIN SETTERS INSTALLER [address] [place] [address] [email or web address] PCP - General Nurse Practitioner 06/23/23 08/03/24 Liyah Patterson MD [address] [place] [address] [email or web address] PCP - General Family Medicine 08/04/24 10/11/24 Antione Segura PA-C [address] [place] [address] [email or web address] PCP - General Physician Laborer [employer] 10/12/24 Lang Germain MD [address] [place] [address] [email or web address] Insurance Assigned Provider 09/18/23 02/19/24 Jn Cardoza MD [address] [place] [address], [address] [place] [address] [email or web address] Neurology 02/03/24 Denys Henriquez MD [address] [place] [address] [place] [address] Pulmonary Disease 02/03/24 Liyah Patterson MD [address] [place] [address] [email or web address] Insurance Assigned Provider 02/19/24 01/20/25 Rhett Cortez MD [address] [place], [place] [phone] [email or web address] Insurance Assigned Provider 01/20/25 documented as of this encounter Additional Source Comments The information contained in this document represents components of the legal health record. It is not the complete legal health record.[facility]
--- OUTSIDE RECORDS SUMMARY | 2025-03-01 17:23 | XMS_ITS | Clinical Summary ---
Author Organization [facility] Address [address] [place] [id number] Phone Care Team Providers Care [employer] Sh[employer] Driver Name Role Phone Jn Cardoza MD Unavailable Denys Henriquez MD Unavailable [phone] Antione Segura PA-C Primary Care Provider [phone] Rhett Cortez MD Unavailable Allergies Active Allergy [...] (two) times a day. 01/27/20 25 Active predniSONE (DELTASONE) 10 MG tablet Take 10 mg by mouth daily. TAPER: [id number] 10MG X4DAYS 5MG X4DAYS 02/13/20 25 Active oxyCODONE 5 MG immediate release tabletIndications:S acroiliitis, not elsewhere classified Take 1 tablet (5 mg total) by mouth every 12 (twelve) hours as needed for pain (specific location in comments). 28 tablet 02/29/20 25 025 Active predniSONE (DELTASONE) 10 MG tablet Take 10 mg by mouth daily. 40MG PO- , 30MG- 2 DAYS, 20MG- 2 DAYS, 10MG- 2 DAYS 01/09/20 25 025 Disconti nued(No longer taking) oxyCODONE 5 MG immediate release tabletIndications:S acroiliitis, not elsewhere classified Take 1 tablet (5 mg total) by mouth every 12 (twelve) hours as needed for pain (specific location in comments). 28 tablet 02/05/20 25 025 Disconti nued(Reo rder) Active Problems Problem Noted Date Diagnosed Date Acute on chronic hypoxic respiratory failure Assessment & Plan (12/28/2024 6:54 PM EDT): Respiratory status improved on course of antibiotics and prednisone. Continue deep breathing and monitor for any worsened respiratory status. Monitor home spO2. Continue benzonatate prn. Continue O2 therapy as prescribed. Referral placed to [facility] Pulmonology. Persistent cough 12/28/2024 Trigeminal neuralgia 12/28/2024 [...] last year and this was completed at [facility] through her employment officer -Her blood pressures have been not well-controlled [...] daily. She follows with Dr. Thurman at [facility]. Patient follows regularly with him. Her [...] Does have outpatient stress test scheduled with [facility] Cardiology. Discussed that results would indicate future management and whether that may include cardiac catheterization. I do not see record of this within her discharge summary from [facility] Assessment & Plan (12/22/2023 9:33 AM EDT): [...] does have an upcoming appointment with her vp mobile products next week. Of note she also saw another vp mobile products Remy Bautista out at [facility] pulmonary and has a follow-up with them [...] follows closely with Dr. Henriquez out of [facility]. She is on Daliresp, DuoNebs and [...] a scheduled appointment on 12/18 with her vp mobile products. She is hoping to get this moved [...] follows closely with Dr. Henriquez out of [facility]. She is on Daliresp, DuoNebs and [...] Continue prednisone as prescribed upon discharge from [facility]. Discussed concern for coronary requirement of nebulizer treatments and albuterol rescue inhaler. We also reviewed the importance of vaping cessation, she remains precontemplative. She does have follow-up appointment scheduled with Dr. Henriquez and has resumed VNA services. Assessment & Plan (11/29/2023 5:28 PM EDT): Recent admission for COPD exacerbation with acute hypoxemic respiratory failure. Current vp mobile products is Dr. Henriquez at [facility]. She is interested in establishing care with [facility] some of her specialists are within the [facility] system for better continuity of care. She [...] should be seen and followed by a picker which she does already have appointment scheduled [...] how this is not appropriate given prescribed Liverpool for pain and risk of UNDERLINER depression. She is aware of these risks and agrees to continuing medication as prescribed. She understands that she can contact the office should she be interested in discussion of medication regimen. Assessment & Plan (11/01/2023 10:20 AM EDT): PHQ9 Flowsheet Row Office Visit from 10/28/2023 in [facility] PHQ-9 Total Score 24 Results [...] 3 times daily and she was on Liverpool however during her last hospital stay this [...] study and speech evaluation when inpatient at [facility]. Discussed referral to gastroenterology discussed potential of [...] EST): Continue follow-up with Dr. 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 We discussed concern for UNDERLINER depression and need to minimize use especially [...] Encounters Date Type Department Care Team Description 03/01/2025 11:00 AM EDT Home Care Visit [facility] [address] [place] [phone] Rich Mariscal CONING MACHINE OPERATOR HOME VISIT 03/01/2025 Refill [facility] Neurology [address] [place] [address] Vania Matamoros MA 02/27/2025 Refill [facility] Internal Medicine [address] [place] [address] Antione Segura PA-C Medication Refill 02/26/2025 Episode Documentation Update [facility] [address] [place] [address] Margy Rubalcava 02/23/2025 11:30 AM EDT Home Care Visit [facility] [address] [place] [address] Shakira Hand RN SN OASIS RECERTIFICATION/FUP 02/23/2025 Plan of Care Documentation [facility] [address] [place] [address] 02/21/2025 Episode [facility] [address] [place] [address] Margy Rubalcava 02/20/2025 Orders Only [facility] Internal Medicine [address] [place] [address] Provider, MD Omar 02/19/2025 10:30 AM EDT Home Care Visit [facility] [address] [place] [phone] Shakira Hand RN SN PRN HOME VISIT 02/19/2025 9:00 AM EDT Home Care Visit [facility] [address] [place] [address] Krysta Charles POULTRY SEXER HOME VISIT 02/16/2025 Home Care Visit [facility] [address] [place], [place] [phone] Laquita Mchugh, PT TELEPHONE ENCOUNTER 02/16/2025 Telephone [facility] Internal Medicine [address] [place] [address] Antione Segura PA-C Referral ([facility] Pulmonology) 02/16/2025 Home Care Visit [facility] [address] [place], [place] [phone] Krysta Charles POULTRY SEXER HOME VISIT 02/15/2025 9:00 AM EDT Office Visit [facility] Internal Medicine [address] [place] [address] Antione Segura PA-C Pulmonary emphysema, unspecified emphysema type (Primary Dx) 02/15/2025 Home Care Visit [facility] [address] [place] [address] Laquita Mchugh, PT TELEPHONE ENCOUNTER 02/14/2025 1:30 PM EDT Home Care Visit [facility] [address] [place], [place] [phone] Shakira Hnad RN SN HOME VISIT 02/14/2025 Home Care Visit [facility] [address] [place], [place] [phone] Laquita Mchugh, PT TELEPHONE ENCOUNTER 02/14/2025 Home Care Visit [facility] [address] [place], [place] [phone] Laquita Mchugh, PT TELEPHONE ENCOUNTER 02/14/2025 Orders Only [facility] Internal Medicine [address] [place] [address] ProviderOmar MD 02/14/2025 Documentation [facility] Internal Medicine [address] [place] [address] Antione Segura PA-C 02/14/2025 Home Care Visit [facility] [address] [place] [address] Krysta Charles POULTRY SEXER HOME VISIT 02/13/2025 Telephone [facility] [address] [phone] Antione Segura PA-C Appointment (Tcm+discharged 02/09/25 ) 02/12/2025 12:30 PM EDT Home Care Visit [facility] [address] [place] [address] Shakira Hand, RN SN OASIS RESUMPTION OF CARE (VERONIKA) 02/11/2025 Home Care Visit [facility] [address] [place] [address] Maritza Calix, RN CASE COMMUNICATION 02/09/2025 Home Health Resumption of Care Planning [facility] [address] [place] [address] Koki Simons, HUA 02/08/2025 1:00 AM EDT Home Care Visit [facility] [address] [place] [address] Shakira Hand, HUA SN OASIS TRANSFER 02/05/2025 Home Care Visit [facility] [address] [place] [address] Krysta Charles CASE COMMUNICATION 02/01/2025 3:30 PM EDT Home Care Visit [facility] [address] [place] [address] Yane Lanza, PT PT HOME VISIT 02/01/2025 4:00 AM EDT Home Care Visit [facility] [address] [place] [address] Krysta Charles POULTRY SEXER HOME VISIT 01/31/2025 1:30 PM EDT Home Care Visit [facility] [address] [place] [phone] Shakira Hand, HUA SN HOME VISIT 01/29/2025 3:30 PM EDT Home Care Visit [facility] [address] [place] [phone] Yane Lanza, PT PT HOME VISIT 01/29/2025 8:15 AM EDT Home Care Visit [facility] [address] [place], [place] [phone] Krysta Charles POULTRY SEXER HOME VISIT 01/29/2025 Refill [facility] Internal Medicine [address] [place] [address] Antione Segura PA-C Medication Refill 01/29/2025 Telephone [facility] Internal Medicine [address] [place] [address] Antione Segura PA-C Request For Order(s) 01/26/2025 Home Care Visit [facility] [address] [place] [address] Karlene Berumen, RN TELEPHONE ENCOUNTER 01/25/2025 2:30 PM EDT Home Care Visit [facility] [address] [place] [address] Yane Lanza, PT PT EVALUATION 01/25/2025 4:00 AM EDT Home Care Visit [facility] [address] [place] [address] Krysta Charles POULTRY SEXER HOME VISIT 01/25/2025 1:00 AM EDT Home Care Visit [facility] [address] [place] [address] Karlene Berumen, RN SN HOME VISIT 01/24/2025 Telephone [facility] Internal Medicine [address] [place] [address] Antione Segura PA-C PFT 01/24/2025 Telephone [facility] Internal Medicine [address] [place] [address] Eliana Prabhakar CNP Breast Cancer Screening 01/23/2025 9:00 AM EDT Home Care Visit [facility] [address] [place] [phone] Rich Mariscal LPN HOME VISIT 01/23/2025 4:30 AM EDT Home Care Visit [facility] [address] [place] [address] Krysta Charles POULTRY SEXER HOME VISIT 01/22/2025 Home Care Visit [facility] [address] [place] [address] Yane Lanza, PT TELEPHONE ENCOUNTER 01/22/2025 Refill [facility] Internal Medicine [address] [place] [address] Antione Segura PA-C Medication Refill 01/18/2025 11:00 AM EDT Home Care Visit [facility] [address] [place] [address] Shakira Hand RN SN HOME VISIT 01/18/2025 9:15 AM EDT Home Care Visit [facility] [address] [place] [address] Krysta Charles POULTRY SEXER HOME VISIT 01/18/2025 Telephone [facility] Internal Medicine [address] [place] [address] Antione Segura PA-C Medication Question (Gabapentin) 01/18/2025 Episode Documentation Update [facility] [address] [place] [address] Mayra Burton 01/17/2025 2:30 PM EDT Home Care Visit [facility] [address] [place] [address] Krysta Charles POULTRY SEXER HOME VISIT 01/17/2025 Telephone [facility] Internal Medicine [address] [place], [place] [phone] Elida Lindquist, HUA VNA Orders 01/15/2025 Episode Documentation Update [facility] [address] [place] [address] Mayra Burton 01/14/2025 Home Care Visit [facility] [address] [place] [phone] Raya Howard, PT TELEPHONE ENCOUNTER 01/12/2025 Refill [facility] [address] [place], [place] [phone] Antione Segura PA-C Medication Refill 01/12/2025 Telephone [facility] Internal [address] [phone] Antione Segura PA-C VNA Orders 01/11/2025 10:00 AM EDT Home Care Visit [facility] [address] [place] [address] Shakira Hand RN SN HOME VISIT 01/11/2025 Episode Documentation Update [facility] [address] [place] [address] Mayra Burton 01/10/2025 12:30 PM EDT Home Care Visit [facility] [address] [place], [place] [phone] Shakira Hand, HUA SN OASIS RESUMPTION OF CARE (VERONIKA) 01/10/2025 Telephone [facility] Internal Medicine [address] [place], [place] [phone] Antione Sgeura PA-C Referral (Pulmonology referral update to urgent) 01/09/2025 3:00 PM EDT Home Care Visit [facility] [address] [place], [place] [phone] Shakira Hand RN SN OASIS TRANSFER 01/09/2025 Home Health Resumption of Care Planning [facility] [address] [place] [address] Koki Simons RN 01/04/2025 Orders Only [facility] Internal Medicine [address] [place], [place] [phone] Omar Cooley MD 01/04/2025 Telephone [facility] Internal Medicine [address] [place], [place] [phone] Antione Segura PA-C Shortness of Breath 01/04/2025 Telephone [facility] [address] [place], [place] [phone] Brittnee Vigil MD 01/02/2025 1:00 PM EDT Home Care Visit [facility] [address] [place] [address] Shakira Hand RN SN HOME VISIT 01/02/2025 Telephone [facility] Internal Medicine [address] [place], [place] [phone] Eliana Prabhakar CNP Follow-up 01/01/2025 Home Care Visit [facility] [address] [place] [address] Claudia Charles, PT PT EVALUATION 12/29/2024 12:00 PM EDT Home Care Visit [facility] [address] [place] [address] Shakira Hand RN SN HOME VISIT 12/28/2024 3:00 PM EDT Office Visit [facility] Internal Medicine [address] [place], [place] [phone] Chenausky, Eliana Berenice, WOOL FLEECE GRADER Acute on chronic hypoxic respiratory failure (Primary Dx); Persistent cough; Anxiety; Trigeminal neuralgia; 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; Occipital neuralgia of left side; Acute congestive heart failure, unspecified heart failure type; Benign essential hypertension; Irritable bowel syndrome with both constipation and diarrhea; Chronic low back pain, unspecified back pain laterality, unspecified whether sciatica present 12/28/2024 Telephone [facility] Internal Medicine [address] [place], [place] [phone] Antione Segura PA-C VNA Orders 12/28/2024 Plan of Care Documentation [facility] [address] [place] [phone] 12/27/2024 3:00 PM EDT Home Care Visit [facility] [address] [place] [phone] Shakira Hand RN SN OASIS START OF CARE (SOC) 12/26/2024 Refill [facility] Internal Medicine [address] [place] [address] Antione Segura PA-C Medication Refill 12/26/2024 Documentation [facility] Medicine [address] [place], [place] [phone] Antione Segura PA-C 12/25/2024 Home Care Visit [facility] [address] [place] [phone] Lelo Roa RN NON ADMIT HOME HEALTH VISIT 12/25/2024 Orders Only [facility] [address] [place] [phone] Homehealth, Interface ProviderMD 12/23/2024 Home Care Visit [facility] [address] [place] [phone] Maritza Calix, RN CASE COMMUNICATION 12/22/2024 Orders Only [facility] Medicine [address] [place], [place] [phone] ProviderOmar MD 12/20/2024 Telephone [facility] Medicine [address] [place], [place] [phone] Antione Segura PA-C TCM Visit (Unable to schedule) 12/18/2024 Orders Only [facility] [address] [place] [address] Homehealth, Interface MD Lenora 12/18/2024 Home Care Visit [facility] [address] [place] [address] Shakira Hand, HUA SN NON OASIS DISCHARGE NON VISIT/TELEPHONE 12/14/2024 5:35 AM EDT - 12/14/2024 11:59 PM EDT Hospital Encounter [facility] [address] [place], [place] [phone] Nba Roberson MD Discharge Disposition: Home or Self Care 12/11/2024 Home Care Visit [facility] [address] [place] [address] Lelo Roa, RN CASE COMMUNICATION 12/11/2024 Refill [facility] Medicine [address] [place], [place] [phone] Sirisha Huertas, AGA Medication Refill 12/09/2024 Home Care Visit [facility] [address] [place] [address] Maritza Calix, RN CASE COMMUNICATION 12/08/2024 Home Care Visit [facility] [address] [place] [address] Lelo Roa, RN TELEPHONE ENCOUNTER 12/06/2024 Home Health Resumption of Care Planning [facility] [address] [place] [address] Diana Torres RN 12/01/2024 Home Care Visit [facility] [address] [place] [address] Lelo Roa RN SN OASIS TRANSFER 12/01/2024 Orders Only [facility] Internal Medicine [address] [facility] [place] [address] ProviderOmar MD 11/29/2024 4:40 PM EDT Office Visit [facility] Internal Medicine [address] [facility] [address] Antione Segura, LONNYC Acute congestive heart failure, unspecified heart failure type (Primary Dx) from Last 3 Months Immunizations Immunization Administration [...] high school, GED, job training, learning the [place] language, technical skills, or developing parenting skills)? [...] F) 03/01/2025 11:28 AM EDT Respiratory Rate 21 02/15/2025 9:02 AM EDT Oxygen Saturation 94% 03/01/2025 11:28 AM EDT [...] Care Visit [facility] [address] [place] [phone] Shakira Hand RN [address] [place] [phone] [email or web address] 03/15/2025 Home Care Visit [facility] [address] [place], [place] [phone] Shakira Hand RN [address] [place] [phone] [email or web address] 03/22/2025 1:00 AM EDT Home Care Visit [facility] [address] [place] [phone] Shakira Hand RN [address] [place] [phone] [email or web address] 03/28/2025 9:40 AM EDT Office Visit [facility] [address] [place] [address] Antione Segura PA-C [address] [place] [address] [email or web address] 03/29/2025 2:00 AM EDT Home Care Visit [facility] [address] [place] [phone] Shakira Hand, HUA [address] [place] [phone] 04/05/2025 2:00 AM EDT Home Care Visit [facility] [address] [place] [phone] Shakira Hand RN [address] [place] [phone] [email or web address] 04/12/2025 1:30 AM EDT Home Care Visit [facility] [address] [place] [phone] Shakira Hand RN [address] [place] [phone] [email or web address] 04/19/2025 12:30 AM EST Home Care Visit [facility] [address] [place] [phone] Shakira Hand RN [address] [place] [phone] [email or web address] 04/25/2025 Appointment [facility] [address] [place] [phone] Shakira Hand, HUA [address] [place] [phone] [email or web address] 06/25/2025 9:30 AM EST Telemedicine [facility] Neurology [address] [place] [address] Jn Cardoza MD [address] [place] [address], [address] [place] [address] [email or web address] Health Maintenance Due Date Last Done Comments [...] PHQ 03/03/2025 01/31/2025, 01/31/2025 BLOOD PRESSURE 08/23/2025 03/01/2025 DEPRESSION SCREENING 01/31/2026 01/31/2025, 02/01/20 25 CREATININE [...] of2 resultswithin the time period is included. [facility] Creatinine, serum - External 0.66(A) 0.8 - 1.3 mg/dL Result [facility] MD LAB BLOOD ORDERABLES Mariya l Result * Outside ALT Level (02/05/2025) Only the most recent of2 resultswithin the time period is included. [facility] ALT - External 15 5 - 30 U/L Result [facility] MD LAB BLOOD ORDERABLES Mariya l Result * Outside XR??Chest Report Only (01/04/2025 1:21 PM EDT) Result [facility] IMG XR CHEST Final Res ult * Outside Imaging Report Only (12/21/2024 1:01 PM EDT) Result [facility] Provider MD IMG XR CHEST Final Res ult * Outside Imaging Report Only (12/21/2024 10:25 AM EDT) Result [facility] Provider MD IMG XR CHEST Final Res ult * Outside Imaging Report Only (12/21/2024 8:15 AM EDT) Result [facility] Provider IMG XR CHEST Final Res ult * Outside Imaging Report Only (12/21/2024 8:12 AM EDT) Result [facility] Provider IMG XR CHEST Final Res ult * (ABNORMAL) Comprehensive metabolic panel (12/14/2024 4:45 AM EDT) [facility] SODIUM 140 133 - 146 mmol/L [facility] POTASSIUM 3.8 3.3 - 5.1 mmol/L [facility] CHLORIDE 97 96 - 108 mmol/L [facility] CO2 34 21 - 35 mmol/L [facility] BUN 19 6 - 19 mg/dL [facility] CREATININE 0.70 0.5 - 1.5 mg/dL [facility] GLUCOSE 87 70 - 99 mg/dL [facility] ALBUMIN 4.0 3.9 - 4.8 g/dL [facility] TOTAL PROTEIN 6.2(L) 6.5 - 8.0 g/dL [facility] CALCIUM 9.8 8.4 - 10.3 mg/dL [facility] ALKALINE PHOSPHATASE 63 39 - 117 U/L [facility] TOTAL BILIRUBIN <0.2 0.0 - 1.2 mg/dL [facility] AST 11 0 - 37 U/L [facility] ALT 10 0 - 40 U/L [facility] GLOBULIN 2.2 1 - 4.8 g/dL [facility] EGFR 98 >59 mL/min/1.7 3m2 [facility] Comment:Estimated glomerular filtration rate calculated using the CKD-EPI refit equation. ANION GAP 13 10 - 20 mmol/L [facility] Blood 12/14/2024 4:45 AM EDT 12/14/2024 6:03 AM EDT us Jn Cardoza MD LAB BLOOD ORDERABLES Final Resul t [facility] [address] [place] [address] * (ABNORMAL) CBC and differential (12/14/2024 4:45 AM EDT) WBC 14.11(H) 4.00 - 11.00 K/uL [facility] RBC 3.99(L) 4.00 - 5.20 M/uL [facility] HGB 12.7 12.0 - 16.0 g/dL [facility] HCT 40.1 36.0 - 46.0 % [facility] PLT 394 150 - 450 K/uL [facility] MCV 100.5(H) 80.0 - 100.0 fL [facility] MCH 31.8(H) 27.0 - 31.0 pg [facility] MCHC 31.7(L) 32.0 - 36.0 g/dL [facility] RDW 13.5 11.5 - 14.5 % [facility] MPV 9.2 8.4 - 12.0 fL [facility] NRBC 0.00 0.00 /100 WBCs [facility] ABSOLUTE NRBC 0.00 0.00 K/uL [facility] DIFF METHOD Auto [facility] NEUTS 72.2 48.0 - 76.0 % [facility] LYMPHS 15.0(L) 18.0 - 41.0 % [facility] MONOS 9.9 4.0 - 11.0 % [facility] EOS 1.4 0.0 - 5.0 % [facility] BASOS 0.4 0.0 - 1.5 % [facility] Granulocytes, immature (%) 1.1(H) 0.0 - 0.9 % [facility] ABSOLUTE NEUTS 10.20(H) 1.92 - 7.60 K/uL [facility] ABSOLUTE LYMPHS 2.11 0.72 - 4.10 K/uL [facility] ABSOLUTE MONOS 1.39(H) 0.16 - 1.10 K/uL [facility] ABSOLUTE EOS 0.20 0.00 - 0.50 K/uL [facility] ABSOLUTE BASOS 0.05 0.00 - 0.15 K/uL [facility] Granulocytes, immature 0.16(H) 0.00 - 0.09 K/uL [facility] Blood 12/14/2024 4:45 AM EDT 12/14/2024 6:03 AM EDT us Jn Cardoza MD LAB BLOOD ORDERABLES Final Resul t Performing Organization Address City/State/[facility] Co de Phone Number [address] [address] * Outside CT Head/Neck Report Only (12/01/2024 4:44 PM EDT) Historical Provider MD DAWKINS CT HEAD/NECK Final Re sult * Outside CT Abd/pelvis Report Only (12/01/2024 4:26 PM EDT) Historical Provider MD DAWKINS CT ABD/PELVIS Final R esult * Outside CT??Chest Report Only (11/30/2024 3:48 PM EDT) us Historical Provider IMMadyson CT CHEST Final Res ult * Outside XR??Chest Report Only (11/30/2024 3:38 PM EDT) us Historical Provider IMG XR CHEST [...] can be found at:[email or web address] Lang Germain MD [facility] CHEST Final Result * (ABNORMAL) Lipid panel (08/22/2021 8:13 AM EST) HDL 54 mg/dL [facility] Comment: Interpretation <40 mg/dL: Low HDL cholesterol (major risk factor for CHD) Greater than or equal to 60 mg/dL: High HDL cholesterol ( negative risk factor for CHD) HDL - cholesterol is affected by a number of factors, e.g. smoking, excerise, hormones, sex and age. CHOLESTEROL 237 0 - 240 mg/dL [facility] TRIGLYCERIDES 201(H) 30 - 160 mg/dL [facility] LDL 143(H) 50 - 129 mg/dL [facility] Comment: LDL levels in terms of risk for coronary heart disease: <100 mg/dL: Optimal 100-129 mg/dL: Near or above optimal 130-159 mg/dL: Borderline high 160-189 mg/dL: High >190 mg/dL: Very High CARDIAC RISK RATIO 4.4 3.3 - 4.4 C [facility] Blood 08/22/2021 8:13 AM EST 08/22/2021 8:17 AM EST us Jennifer Duke NP LAB BLOOD ORDERABLES Final Resu lt [address] [address] * Pap Smear (02/22/2020 12:00 AM EDT) 02/22/2020 02/23/2020 8:2 1 AM EDT Narrative SEE NARRATIVE - 02/27/2020 11:20 AM EDT [address] [address] Outside Medical Sales Representative: Perla Luis MD [employer] Cytology Report FINAL DIAGNOSIS A. PAP SMEAR [...] 52, 56, 58, 59, 66, 68) by [employer]izer Onclarity HR-HPV analysis. Clinical correlation is advised. This HPV test was performed at [facility], [address] [place] [address]. This test has been FDA approved for [facility] cervical cytology specimens. The accuracy and precision of this test for all other specimen sources has been verified in the Cytopathology Laboratory of the [facility] and has not been cleared or approved by the U.S. Food and Drug Administration. Clinical correlation is advised. CLINICAL HISTORY Date of Last Menstrual Period: 2009 Menstrual History: Post Menopausal Other Clinical Conditions: Screening Pap SPECIMEN SOURCE A: PAP SMEAR (SUREPATH) CE Patient Name: MAYRA CONSTANTINO : 1965 (Age: 55) Sex: F Institution: [facility] Location: [facility] Date of Collection: 02/22/2020 Date of Reported: 02/27/2020 11:20 Results to: Jennifer Duke MSN, BSN Jennifer Duke NP CYTOLOGY ORDERABLES Final Resul t Performing Organization Address [facility] de Phone Number SEE NARRATIVE * Hepatitis C antibody, qualitative (05/25/2019 10:24 AM EST) HCV NON-REACTIV E NON-REACTI VE [facility] Blood 05/25/2019 10:2 4 AM EST 05/25/2019 10:26 AM EST Jennifer Duke NP LAB BLOOD ORDERABLES Final Resu lt Performing Organization Address [facility] Co de Phone Number [facility] [address] [place] [address] * COLONOSCOPY FOR RESULT ENTRY ONLY (12/04/2013) Colonoscopy repeat 10 yrs us Historical Provider MD HEALTH MAINTENANCE Final Result from Last 3 Months or Most Recently Relevant to Health Maintenance Insurance [facility] MEDIC[facility] A [facility] [place] [facility] A [facility] MEDIC[facility] A [facility] A [facility] A Advance Directives For more information, please contact: [phone] (9AM - 5PM [place]/[facility], Wednesday-Wednesday) Documents on File Type Date Recorded Patient File Machine Operator Expl anation MOLST 02/15/2025 MOLST * Full Code (Latest Code Status on File) Date Activated Date Inactivated Comments 02/15/2025 9:52 AM Question Answer Comments Code Status Confirmed With: Patient Care Teams Airport Shuttle Driver Relationship Specialty Start Date End Date Antione Segura PA-C [address] [place] [address] PCP - General Physician Water Commissioner 10/12/24 Jn Cardoza MD [address] [place] [address], [address] [place] [id number] Neurology 02/03/24 Denys Henriquez MD [address] [place] [address] [place] [address] Pulmonary Disease 02/03/24 Rhett Cortez MD [address] [place] [address] Insurance Assigned Provider 01/20/25 Additional Source Comments The information contained in this document represents components of the legal health record. It is not the complete legal health record.[facility]
--- NOTE | 2025-03-01 18:04 | HO.NURTONUR ---
Addendum entered by Estrellita Sebastian RN 03/02/25 00:50: gave pt incentive spirometer and educated pt on use. Pt demonstrated use of spirometer well. Spirometer is bedside with pt Addendum entered by Estrellita Sebastian RN 03/01/25 23:29: assumed care for pt at this time. pt awake and alert sitting up in stretcher watching tv. pt a&ox4, speaking in full clear sentences, and in no notable distress at this time. replaced pts purwick and emptied 1200mls from suction canister. medicated pt per aug. updated pt on plan of care. call dum[place] is within pts reach. Original Note: Pt here today c/o increasing roc x past 3 days. Pt has extensive pmhx of COPD and O2 @ 2L via NC @ home. EMS found pt speaking one word sentences and RA sat of 51%. Pt had given herself 3 neb tx's prior to their arrival. Pt was tx'd by EMS w/ two duonebs, and 125mg of solumedrol. Pt arrived to ED w/ 2nd neb tx in place. Pt was placed on O2 via NC and initial sats 91%. Since coming to the ED her breathing has self-improved and O2 sats 94 on 2L via NC. CXR show no active disease process, we tx'd pt Mg and doxy iv. Pt being admitted for COPD exac.
--- NOTE | 2025-03-01 19:18 | P.HPHOSP_ITS ---
History of Present Illness Date of Service: 03/01/25 Attending physician on admission: Desiree Peoples Chief Complaint: Dyspnea Pt is a 59 year old female with past medical history COPD on home oxygen, trigeminal and occipital neuralgia, hyperlipidemia, JUANITO not on CPAP, CVA, nephrolithiasis, moderate aortic stenosis, obesity, chronic pain on oxycodone, hypertension with multiple hospitalizations related to COPD exacerbations in the past presents to the emergency room with complaints of shortness of breath and started Wednesday morning. Today patient noted her pulse ox was 87% on 2 L and patient began increase usage of her bronchodilator at home. Patient had recently been prescribed a prednisone taper which patient is currently taking. Patient denies any productive cough, fever, nausea or vomiting. Patient is not having any constipation or diarrhea. Patient continues to deny tobacco use and quit approximately 9 months ago. Last hospitalization was 02/09/2025. Patient did receive Solu-Medrol via EMS and 1 duo neb. Patient has no leukocytosis, acute anemia or fever currently. VBG 7.46, 41, 60, 29. UA normal with no evidence of infection. BNP pending. Troponin 10.2. AST 37. Chest x-ray notes no active pulmonary disease. Patient is now comfortable on 2 L nasal cannula. COVID, RSV and flu negative. H&H are stable. Patient received Xopenex, magnesium IV and started on doxycycline empirically in the emergency department. Review of Systems 2 Review of Systems: Patient currently denies any chest pain or shortness of breath at rest. Patient denies any nausea, vomiting, fever, abdominal pain. Patient denies any lower leg pain. Yes all other systems are reviewed and are negative ON LICENSE OF [facility] Medical History Morbid obesity Pulmonary nodules Diastolic heart failure Leukocytosis Chronic lung disease Chronic lung disease Hypoxia Panic disorder Hypertension Chronic hypercapnic respiratory failure Aortic stenosis Obesity (BMI 30-39.9) Asthma Acute exacerbation of chronic obstructive pulmonary disease Chronic lung disease Hypogammaglobulinemia Smoker JUANITO (obstructive sleep apnea) Allergies Elevated troponin COPD (chronic obstructive pulmonary disease) Trigeminal neuralgia Mixed hyperlipidemia Peripheral neuropathy Tobacco use disorder Mood disorder Cognitive capacity: Alert and orientated x3 Functional capacity: uses cane/walker Patient : No Surgical History History of esophagogastroduodenoscopy (EGD) History of colonoscopy History of lumbar discectomy History of tubal ligation History of excision of mass History of shoulder surgery Social History Household Members: Spouse Household Members Other:: dog Housing: Condominium Do you presently have visiting nurse or other home services: Yes Alcohol intake: never Comment: rings appropriately Patient Tobacco Use Status: Former Tobacco user Tobacco use type: Cigarette Cigarette Packs Per Day: 4 Cigarettes Per Day: 80.0 Years Smoked: 40 Smoked in Last 30 Days: Yes e-Cigarette/Vaping Use: Never Used Second Hand Smoke Exposure: No Use of substances other than those prescribed or required for medical reasons: Yes Substance Use Type: Marijuana Substance Use Frequency: Occasionally Any prior treatment program specific to substance use: No Advance Directives: Yes Advance Directives on File: Yes Advance Directives Date on File: 03/09/23 Patient : No service: No Ebola Risk: Travel/Contact With Anyone From Affected Area/s: No Has Patient Experienced Ebola Symptoms: No Meds Allergies Allergy/AdvReac Type Severity Reaction Status Date / Time Iodinated Contrast Media (IV Allergy Intermediate HIVES Verified 03/01/25 15:55 CONTRAST) latex (LATEX) Allergy Unknown RASH Verified 03/01/25 15:55 adhesive tape Allergy Rash Verified 03/01/25 15:55 morphine (MORPHINE) AdvReac Unknown VOMITING Verified 03/01/25 15:55 Home Medications ?Medication ?Instructions ?Recorded ?Confirmed ?Last Taken ?Type atorvastatin 80 mg tablet 80 mg PO DAILY@199903/04/23 03/01/25 02/28/25 History ckftppywtx-nolwvtfimigcv-gymbnzqi 1 tab PO DAILY MRX1 PRN Migraine 03/04/23 03/01/25 05/21/24 20:00 History 50 mg-325 mg-40 mg tablet Headache duloxetine 60 mg capsule,delayed 60 mg PO BID@0600,200 0 03/04/23 03/01/25 03/01/25 History release gabapentin 300 mg capsule 1,200 mg PO TID@0600,1200,20 00 03/04/23 03/01/25 03/01/25 History hyoscyamine sulfate 0.125 mg tablet 0.25 mg PO Q6H PRN Abdominal 03/04/23 03/01/25 02/04/25 History Discomfort Oxygen Home Use 04/16/23 02/26/25 10/28/24 History prazosin 2 mg capsule 2 mg PO DAILY@199904/16/23 03/01/25 03/01/25 History albuterol sulfate 90 mcg/actuation 2 puff inhalation Q 4H PRN 01/31/24 03/01/25 01/04/25 History aerosol inhaler Shortness Of Breath Or [place] ing aspirin 81 mg tablet,delayed 81 mg PO DAILY@05/2203/01/25 02/28/25 History release calcium 600 mg (as 1 tab PO DAILY@199906/20/24 03/01/25 02/28/25 History carbonate)-vitamin D3 5 mcg (200 unit) tablet baclofen 20 mg tablet 20 mg PO TID@0600,1200,199910/29/24 03/01/25 03/01/25 History aripiprazole 5 mg tablet (Abilify) 5 mg PO DAILY@0600 12/01/24 03/01/25 03/01/25 History oxcarbazepine 300 mg tablet 300 mg PO BID@0600,199903/01/25 03/01/25 History lorazepam 0.5 mg tablet 0.5 mg PO BEDTIME@1999 MODER ATE 01/04/25 03/01/25 02/28/25 History Anxiety polyethylene glycol 3350 17 17 g PO DAILY PRN Constipa tion 01/04/25 03/01/25 Unknown History gram/dose oral powder (Miralax) budesonide 160 mcg-glycopyr 9 2 inh inhalation BID@060 0,1800 02/05/25 03/01/25 03/01/25 History mcg-formot 4.8 mcg/actuation HFA inhaler (Breztri Aerosphere) lorazepam 0.5 mg tablet 0.5 mg PO DAILY PRN Anxiety 02/05/25 03/01/25 Unknown History roflumilast 500 mcg tablet 500 mcg PO DAILY@0600 02/0503/01/25 03/01/25 History (Daliresp) valsartan 40 mg tablet 40 mg PO DAILY@0600 02/05/25 03/01/25 03/01/25 History verapamil 120 mg tablet 120 mg PO BID@0600,2000 01/1303/01/25 03/01/25 History nystatin 100,000 unit/gram topical 1 appl topical TID- QID 03/01/25 03/01/25 03/01/25 History powder omeprazole 20 mg capsule,delayed 20 mg PO DAILY@0600 0 03/01/25 03/01/25 03/01/25 History release prednisone 5 mg tablet 5 mg PO DAILY@0600 03/01/25 03/01/25 03/01/25 History Physical Exam 2 Vital Signs and Narrative: Vital Signs: Last Vital Signs Temp 98 F 03/01/25 14:45 Pulse 112 H 03/01/25 18:17 Resp 23 H 03/01/25 18:17 BP 137/71 03/01/25 16:08 Pulse Ox 94 03/01/25 16:08 O2 Del Method Nasal Cannula 03/01/25 16:08 O2 Flow Rate 3 03/01/25 16:08 Oxygen Flow Rate 2 03/01/25 14:45 BMI result Body Mass Index 33.1 Alert and orientated X3, able to give good history. Neuro: CN II-X11 intact, no deficits, visual acuity intact EYES: PERRLA, EOM intact, sclerae nonicteric, conjunctiva pink ENT: hearing intact, no issues with swallowing, uvula midline, lips moist, nares patent no epistaxis Cardiac: S1 S2 RRR, tachycardic 106, mild systolic murmur, no JVD, no edema in Lower ext Pulmonary: lungs diminished bilaterally with rhonchi right lower base Abdominal: BS active in all 4 quadrants, no guarding, tenderness, rebounding MSK: strength 4/5 upper and lower extremities : no CVA tenderness no bladder distension Extremities: no edema in lower extremities, PT and DP pulses palpable +2 Psych: mood stable, judgement and insight good Skin: No new rashes or lesions Results Labs 03/01/25 15:10 03/01/25 15:10 Labs: Laboratory Results - last 24 hr 03/01/25 03/01/25 03/01/25 15:10 15:15 16:14 MCV 97.4 MCH 31.2 MCHC 32.1 RDW 14.0 Plt Count 348 MPV 9.3 L Immature Gran % (Auto) 0.3 Neut % (Auto) 83.9 H Lymph % (Auto) 11.0 L [place] % (Auto) 4.0 Eos % (Auto) 0.6 Baso % (Auto) 0.2 Lymph # (Auto) 1.0 L [place] # (Auto) 0.4 Eos # (Auto) 0.1 Baso # (Auto) 0.0 Abs Immat Gran (auto) 0.03 Absolute Neuts (auto) 8.0 Absolute Nucleated RBC 0.000 Nucleated RBC % (auto) 0.0 PT 9.7 L INR 0.8 L VBG pH 7.46 H VBG pCO2 41 VBG pO2 60 VBG HCO3 29 H VBG O2 Saturation 90.0 VBG Base Excess 5.6 Anion Gap 12 Estim Creat Clear Calc TNP Estimated GFR > 60 Random Glucose 110 Lactic Acid 1.5 Calcium 9.3 Total Bilirubin 0.2 Direct Bilirubin < 0.2 AST 37 H ALT 19 Alkaline Phosphatase 55 Troponin I High Sens 10.2 D Total Protein 7.6 Albumin 4.1 Lipase 14 Urine Color Yellow Urine Appearance Clear Urine pH 8.0 Ur Specific [place] <= 1.005 Urine Protein Negative Urine Glucose (UA) Negative Urine Ketones Negative Urine Blood Negative Urine Nitrite Negative Ur Leukocyte Esterase Negative Influenza Type A (PCR) NEGATIVE Influenza Type B (PCR) NEGATIVE RSV RNA Qual (PCR) NEGATIVE SARS-CoV-2 RNA (RT-PCR) NEGATIVE ECG Attestation: I personally reviewed and interpreted this ECG as follows: (Normal sinus rhythm QTC 444) Prior ECG tracings: available for review Imaging Radiologist's Impressions: Impressions Chest X-Ray 03/01/25 15:04 IMPRESSION: No active pulmonary disease. Electronically signed by: Emmett Triplett MD 03/01/2025 03:22 PM EDT RP Assessment and Plan (1) Acute hypoxemic respiratory failure: Status: Acute (2) COPD with acute exacerbation: Status: Acute Plan Pt is a 59 year old female with past medical history COPD on home oxygen, hyperlipidemia, CVA, nephrolithiasis, JUANITO, moderate aortic stenosis, obesity, chronic pain on oxycodone, hypertension with multiple hospitalizations related to COPD exacerbations in the past presents to the emergency room with complaints of shortness of breath and started Wednesday morning. Today patient noted her pulse ox was 87% on 2 L and patient began increase usage of her bronchodilator at home. Patient being admitted for COPD exacerbation without obvious evidence of infection. Acute hypoxic respiratory failure Continue oxygen, wean down as tolerated Xopenex Q4 prn Incentive spirometer ordered Patient received doxycycline 100 mg IV x1, will hold off on continuing antibiotics at this time - no clear evidence of URI, PNA COVID, RSV and flu negative COPD exacerbation Continue breathing treatments Added budesonide BID Continue methylprednisolone 60 mg BID Supportive care with antitussives Recent diagnosis of mild aortic stenosis Pt has since continued verapamil, noting dx of mild disease with previous admission Hypertension Continue valsartan as renal function stable Continue verapamil, was held when first diagnosed with mild aortic stenosis 12/06 Hyperlipidemia Continue statin Cardiac diet GERD Continue omeprazole Depression anxiety Continue Abilify, duloxetine, lorazepam Trigeminal and occipital neuralgia Continue oxcarbazepine, gabapentin, baclofen and duloxetine HX of CVA Continue statin and ASA JUANITO Patient can not tolerate CPAP Obesity BMI 33, pt has lost weight over the last 2 months Pt aware of the benefits of wt loss in regards to respiratory illness Pt deferred nutritional consult at this time DVT prophylaxis: Lovenox Med rec pending Full Code status Quality Stroke Does the patient have a stroke diagnosis?: No Reason for No Anti-thrombotic by Day Two: N/A - Med Ordered VTE Prior VTE?: No VTE Risk Level:: Medical - moderate - high VTE Device Contraindication: N/A - Device Ordered VTE Drug Contraindication: N/A - Med Ordered
--- NOTE | 2025-03-01 19:35 | PHA.MEDREC ---
Pharmacy Consult ? Medication Reconciliation Pharmacy has completed the medication reconciliation. Spoke to patient to confirm med list. Patient was recently discharged on 02/09/25 and said nothing has changed with her medications. From discharge on 02/09/25, she has finished the doxycycline and benzonatate course. For the prednisone tapering dose (started on 02/09/25), she is at the end of it...took the second dose today 03/01/25 of the 5 mg daily for 4 days . She is using nystatin powder 3-4x daily. She asked that the timing of her medications as @0600 for morning doses and @2000 for evening doses. She took the second dosage of her medications today at home.
[2025-03-01 20:58] LABS: NT Pro B Type Natriuretic Pept 152.0 pg/mL (<300)
[2025-03-01] MEDS: Aspirin Enteric Coated 81 MG TABLET.DR PO (21:02)
[2025-03-01] MEDS: oxyCODONE HCl Immed Release 5 MG TABLET PO (22:11)
[2025-03-01] MEDS: Calcium + Vitamin D 250 MG TABLET 500 MG PO (22:12)
--- NOTE | 2025-03-01 22:32 | PC.NURSE ---
Assisted pt oob to bedside commode to move bowels, pt took approx 3 steps and became very sob and requested rescue neb tx. Pt was tachypneic @ 32, and tachy @ 100. Provider notified via tiger text, resp called for neb tx.
[2025-03-01] MEDS: Furosemide 20 MG/2 ML VIAL IVPUSH (23:15)
[2025-03-02] VITALS (7 sets, daily range): BP systolic 126–151; BP diastolic 45–72; PULSE 81–98; RESP 14–30; TEMP 36.6–36.8; O2SAT 93–95
[2025-03-02] MEDS: Butalb/Acetamin/Caff 50/325/40 TABLET 1 TAB PO (03:58)
[2025-03-02 04:23] LABS: Anion Gap 12 (12-20); Blood Urea Nitrogen 13 mg/dL (9-16); Calcium 9.5 mg/dL (8.4-10.2); Carbon Dioxide 30 mmol/L (22-29); Chloride 104 mmol/L (96-108); Creatinine Clr Calc Pharmacy 101.5; Estimated Glomerular Filt Rate > 60; Hematocrit 36.9 % (37.0-47.0); Hemoglobin 12.0 g/dl (12.0-16.0); Imm Gran Abs Auto 0.03 X10*3/uL (0.00-0.03); Imm Gran Pct Auto 0.5 % (0.0-0.4); Lymphocytes Absolute Auto 0.4 X10*3/uL (1.2-4.9); MANUAL DIFF FLAG SCAN; Mean Corpuscular HGB Conc 32.5 g/dl (31.0-35.0); Mean Corpuscular Hemoglobin 31.3 pg (27.0-33.0); Mean Corpuscular Volume 96.1 fL (80.0-98.0); NRBC Abs Auto 0.000 X10*3/uL (0.0-0.012); NRBC Pct Auto 0.0 /100WBC (0.0-0.2); Platelet Count 357 X10*3/uL (160-400); Potassium 4.1 mmol/L (3.3-5.1); Red Blood Count 3.84 X10*6/uL (4.20-5.50); SCAN SMEAR FLAG 1; Sodium 142 mmol/L (135-145); White Blood Count 6.1 X10*3/uL (4.8-10.8)
[2025-03-02] MEDS: 0.9 % Sodium Chloride Flush 3 ML SYRINGE IVFLUSH (07:33)
--- NOTE | 2025-03-02 07:38 | P.PNIM_ITS ---
Subjective Subjective Date of Service: 03/02/25 Physical Exam 2 Vital Signs: Vital Signs: Last Vital Signs Temp 98.1 F 03/02/25 06:44 Pulse 89 03/02/25 07:30 Resp 21 H 03/02/25 07:30 BP 126/45 L 03/02/25 07:30 Pulse Ox 95 03/02/25 07:30 O2 Del Method Nasal Cannula 03/02/25 07:30 O2 Flow Rate 2 03/02/25 07:30 Oxygen Flow Rate 2 03/01/25 14:45 BMI result Body Mass Index 33.1 Objective Data Active Medications Acetaminophen (Acetaminophen 325 Mg Tablet) 650 mg PO Q6H PRN PRN Reason: Pain, Mild 1-3,fever,headache Acetaminophen/Butalbital/Caffeine (Butalb/Acetamin/Caff 50/325/40 Tablet) 1 tab PO DAILY MRX1 PRN PRN Reason: Migraine Headache Last Admin: 03/02/25 03:58 Dose: 1 tab Documented By: MENG Aripiprazole (Aripiprazole 5 Mg Tablet) 5 mg PO DAILY@06 [facility] Last Admin: 03/02/25 07:07 Dose: 5 mg Documented By: MENG Aspirin (Aspirin Enteric Coated 81 Mg Tablet.) 81 mg PO DAILY@1999 [facility] Last Admin: 03/01/25 21:02 Dose: 81 mg Documented By: ITALIA Atorvastatin Calcium (Atorvastatin Calcium 80 Mg Tablet) 80 mg PO DAILY@1999 [facility] Last Admin: 03/01/25 21:04 Dose: 80 mg Documented By: ITALIA Baclofen (Baclofen 20 Mg Tablet) 20 mg PO TID@0600,1199,1999 [facility] Last Admin: 03/02/25 07:07 Dose: 20 mg Documented By: MENG Budesonide (Budesonide 0.5 Mg/2 Ml Ampul.Neb) 0.5 mg INHALE RBID [facility] Last Admin: 03/01/25 21:04 Dose: 0.5 mg Documented By: LIZZ Calcium Carbonate (Calcium Carbonate 750 Mg Tab.Chew) 750 mg PO Q4H PRN PRN Reason: Heartburn Calcium Carbonate/Cholecalciferol (Calcium + Vitamin D 250 Mg Tablet) 500 mg PO DAILY@1999 [facility] Last Admin: 03/01/25 22:12 Dose: 500 mg Documented By: ITALIA Duloxetine HCl (Duloxetine Hcl 60 Mg Capsule.) 60 mg PO BID@ [facility] Last Admin: 03/02/25 06:46 Dose: 60 mg Documented By: MENG Enoxaparin Sodium (Enoxaparin Sodium 40 Mg/0.4 Ml Syringe) 40 mg SUBCUT Q24H [facility] Last Admin: 03/01/25 21:00 Dose: Not Given Documented By: ITALIA Non-Admin Reason: Patient Refused Gabapentin (Gabapentin 400 Mg Capsule) 1,200 mg PO TID@0600,1199,1999 [facility] Last Admin: 03/01/25 22:13 Dose: 1,200 mg Documented By: ITALIA Guaifenesin (Guaifenesin 200 Mg/10 Ml 10 Ml Liquid) 10 ml PO Q4H PRN PRN Reason: Cough Levalbuterol HCl (Levalbuterol Hcl 1.25 Mg/3 Ml Vial.Santa) 1.25 mg INHALE Q4H PRN PRN Reason: Shortness of Breath/Wheezing Last Admin: 03/02/25 04:12 Dose: 1.25 mg Documented By: LIZZ Lorazepam (Lorazepam 0.5 Mg Tablet) 0.5 mg PO BEDTIME@1999 [facility] Last Admin: 03/01/25 21:01 Dose: 0.5 mg Documented By: ITALIA Lorazepam (Lorazepam 0.5 Mg Tablet) 0.5 mg PO DAILY PRN PRN Reason: Anxiety Magnesium Hydroxide (Milk Of Magnesia 30 Ml Oral.Susp) 30 ml PO DAILY PRN PRN Reason: Constipation Melatonin (Melatonin 3 Mg Tablet) 6 mg PO BEDTIME PRN PRN Reason: Insomnia Methylprednisolone Sodium Succinate (Methylprednisolone Sod Succ 125 Mg/2 Ml Vial) 60 mg IVPUSH Q12H [facility] Last Admin: 03/02/25 00:07 Dose: 60 mg Documented By: MENG Non-Formulary Medication (Hyoscyamine Sulfate) 0.25 mg PO Q6H PRN PRN Reason: Abdominal Discomfort Nystatin (Nystatin Powder 15 Gm Bottle) 1 appl TOPICAL QID [facility]; Protocol Last Admin: 03/02/25 07:32 Dose: 1 appl Documented By: MATTHEW Omeprazole (Omeprazole 20 Mg Capsule.) 20 mg PO DAILY@599 [facility] Last Admin: 03/02/25 06:46 Dose: 20 mg Documented By: MENG Ondansetron HCl (Ondansetron Hcl 4 Mg/2 Ml Vial) 4 mg IVPUSH Q8H PRN PRN Reason: Nausea and Vomiting Oxcarbazepine (Oxcarbazepine 300 Mg Tablet) 300 mg PO BID@599,1999 [facility] Last Admin: 03/02/25 06:47 Dose: 300 mg Documented By: MENG Oxycodone HCl (Oxycodone Hcl Immed Release 5 Mg Tablet) 5 mg PO BID PRN PRN Reason: Severe Pain (Scale Score 7-10) Polyethylene Glycol (Polyethylene Glycol 3350 17 Gm Powd.Pack) 17 gm PO DAILY PRN PRN Reason: Constipation Polyethylene Glycol (Polyethylene Glycol 3350 17 Gm Powd.Pack) 17 gm PO DAILY PRN PRN Reason: Constipation Prazosin HCl (Prazosin Hcl 1 Mg Capsule) 2 mg PO DAILY@1999 [facility]; Protocol Last Admin: 03/01/25 22:12 Dose: 2 mg Documented By: ITALIA Roflumilast (Roflumilast 500 Mcg Tablet) 500 mcg PO DAILY@599 [facility] Last Admin: 03/02/25 07:07 Dose: 500 mcg Documented By: MENG Senna (Sennosides 8.6 Mg Tablet) 17.2 mg PO BEDTIME [facility] Last Admin: 03/01/25 21:03 Dose: Not Given Documented By: ITALIA Non-Admin Reason: Patient Refused Sodium Chloride (0.9 % Sodium Chloride Flush 3 Ml Syringe) 3 ml IVFLUSH QSHIFT [facility] Last Admin: 03/02/25 07:33 Dose: 3 ml Documented By: MATTHEW Valsartan (Valsartan 40 Mg Tablet) 40 mg PO DAILY@599 [facility]; Protocol Last Admin: 03/02/25 07:07 Dose: 40 mg Documented By: MENG Labs 03/02/25 03:40 03/02/25 03:40 Labs: Laboratory Results - last 24 hr 03/01/25 03/01/25 03/01/25 15:10 15:15 16:14 MCV 97.4 MCH 31.2 MCHC 32.1 RDW 14.0 Plt Count 348 MPV 9.3 L Immature Gran % (Auto) 0.3 Neut % (Auto) 83.9 H Lymph % (Auto) 11.0 L [place] % (Auto) 4.0 Eos % (Auto) 0.6 Baso % (Auto) 0.2 Lymph # (Auto) 1.0 L [place] # (Auto) 0.4 Eos # (Auto) 0.1 Baso # (Auto) 0.0 Abs Immat Gran (auto) 0.03 Absolute Neuts (auto) 8.0 Absolute Nucleated RBC 0.000 Nucleated RBC % (auto) 0.0 Smear Tech's Comments PT 9.7 L INR 0.8 L VBG pH 7.46 H VBG pCO2 41 VBG pO2 60 VBG HCO3 29 H VBG O2 Saturation 90.0 VBG Base Excess 5.6 Anion Gap 12 Estim Creat Clear Calc TNP Estimated GFR > 60 Random Glucose 110 Lactic Acid 1.5 Calcium 9.3 Total Bilirubin 0.2 Direct Bilirubin < 0.2 AST 37 H ALT 19 Alkaline Phosphatase 55 Troponin I High Sens 10.2 D NT-Pro-B Natriuret Pep 152.0 Total Protein 7.6 Albumin 4.1 Lipase 14 TSH 1.25 Urine Color Yellow Urine Appearance Clear Urine pH 8.0 Ur Specific [place] <= 1.005 Urine Protein Negative Urine Glucose (UA) Negative Urine Ketones Negative Urine Blood Negative Urine Nitrite Negative Ur Leukocyte Esterase Negative Influenza Type A (PCR) NEGATIVE Influenza Type B (PCR) NEGATIVE RSV RNA Qual (PCR) NEGATIVE SARS-CoV-2 RNA (RT-PCR) NEGATIVE 03/02/25 03:40 MCV 96.1 MCH 31.3 MCHC 32.5 RDW 14.0 Plt Count 357 MPV 9.2 L Immature Gran % (Auto) 0.5 H Neut % (Auto) 91.3 H Lymph % (Auto) 6.4 L [place] % (Auto) 1.6 L Eos % (Auto) 0.0 Baso % (Auto) 0.2 Lymph # (Auto) 0.4 L [place] # (Auto) 0.1 Eos # (Auto) 0.0 Baso # (Auto) 0.0 Abs Immat Gran (auto) 0.03 Absolute Neuts (auto) 5.6 Absolute Nucleated RBC 0.000 Nucleated RBC % (auto) 0.0 Smear Tech's Comments VERIFIED PT INR VBG pH VBG pCO2 VBG pO2 VBG HCO3 VBG O2 Saturation VBG Base Excess Anion Gap 12 Estim Creat Clear Calc 101.5 Estimated GFR > 60 Random Glucose 159 H Lactic Acid Calcium 9.5 Total Bilirubin Direct Bilirubin AST ALT Alkaline Phosphatase Troponin I High Sens NT-Pro-B Natriuret Pep Total Protein Albumin Lipase TSH Urine Color Urine Appearance Urine pH Ur Specific [place] Urine Protein Urine Glucose (UA) Urine Ketones Urine Blood Urine Nitrite Ur Leukocyte Esterase Influenza Type A (PCR) Influenza Type B (PCR) RSV RNA Qual (PCR) SARS-CoV-2 RNA (RT-PCR) Quality Stroke Does the patient have a stroke diagnosis?: No Reason for No Anti-thrombotic by Day Two: N/A - Med Ordered VTE Prior VTE?: No VTE Risk Level:: Medical - moderate - high VTE Device Contraindication: N/A - Device Ordered VTE Drug Contraindication: N/A - Med Ordered
[2025-03-02] MEDS: oxyCODONE HCl Immed Release 5 MG TABLET PO (11:01)
--- NOTE | 2025-03-02 11:37 | PM.DS ---
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 Apparently she was noted to be hypoxic in the upper 80s. Of note the patient has had multiple recurrent admissions for the same etiology and was likely deemed to have anxiety and has been consulted by psych and it was noted that she has severe anxiety and coughing fits that suddenly cause her to appear dyspneic and thankfully her workup so far has been negative. Initially there was a concern that she might have CHF but it is unlikely given flat troponin, less evidence of pulmonary edema, cardiac causes hypoxia. Given that she has significant emphysema this is likely secondary to her baseline anxiety. Unfortunately, patient is a high-risk of readmission due to medication noncompliance and severe recurrent debilitating panic attacks and anxiety for which psych has adjusted her medications-started her on antianxiety meds and she was to follow-up with outpatient psych for titration. Thankfully, patient responded to nebulizing treatment which likely further proves that her exacerbation is in the setting of anxiety less likely any infectious etiology, cardiac etiology. Patient is being discharged on 40 mg of prednisone for 5 days (can resume her home steroid dose of 5 mg daily post completion of 40 mg taper) following which she has been advised to follow up with Dr. Henriquez in next week and follow-up with PCP in a week For her chronic medical conditions-no changes in medications have been made Time spent discussing smoking cessation with patient: more than 10 minutes Status at Discharge Functional status at discharge: uses cane/walker Overall status at discharge: patient is back to baseline Time Attestation Discharge Coordination Time (in mins): 35 Quality: Safe Use of Opioids Does Pt have an Active Cancer Diagnosis on the Problem List?: No Quality: Stroke Does the patient have a stroke diagnosis?: No Physical Exam Vital Signs: Vital Signs: Last Vital Signs Temp 98.1 F 03/02/25 06:44 Pulse 98 03/02/25 07:48 Resp 30 H 03/02/25 07:48 BP 126/45 L 03/02/25 07:30 Pulse Ox 95 03/02/25 07:30 O2 Del Method Nasal Cannula 03/02/25 07:30 O2 Flow Rate 2 03/02/25 07:30 Oxygen Flow Rate 2 03/01/25 14:45 BMI result Body Mass Index 33.1 DS: Data Data Completed and Pending Completed studies during hospitalization [Text1]: Procedures Assistance with Respiratory Ventilation, Less than 24 Consecutive Hours, Continuous Positive Airway Pressure (02/05/25) Introduction of Vasopressor into Peripheral Vein, Percutaneous Approach (12/01/24) Labs on day of discharge: Laboratory Results - last 24 hr 03/01/25 03/01/25 03/01/25 15:10 15:15 16:14 WBC 9.5 RBC 3.81 L Hgb 11.9 L Hct 37.1 MCV 97.4 MCH 31.2 MCHC 32.1 RDW 14.0 Plt Count 348 MPV 9.3 L Immature Gran % (Auto) 0.3 Neut % (Auto) 83.9 H Lymph % (Auto) 11.0 L [place] % (Auto) 4.0 Eos % (Auto) 0.6 Baso % (Auto) 0.2 Lymph # (Auto) 1.0 L [place] # (Auto) 0.4 Eos # (Auto) 0.1 Baso # (Auto) 0.0 Abs Immat Gran (auto) 0.03 Absolute Neuts (auto) 8.0 Absolute Nucleated RBC 0.000 Nucleated RBC % (auto) 0.0 Smear Tech's Comments PT 9.7 L INR 0.8 L VBG pH 7.46 H VBG pCO2 41 VBG pO2 60 VBG HCO3 29 H VBG O2 Saturation 90.0 VBG Base Excess 5.6 Sodium 142 Potassium 4.4 Chloride 107 Carbon Dioxide 27 Anion Gap 12 BUN 11 Creatinine 0.67 Estim Creat Clear Calc TNP Estimated GFR > 60 Random Glucose 110 Lactic Acid 1.5 Calcium 9.3 Total Bilirubin 0.2 Direct Bilirubin < 0.2 AST 37 H ALT 19 Alkaline Phosphatase 55 Troponin I High Sens 10.2 D NT-Pro-B Natriuret Pep 152.0 Total Protein 7.6 Albumin 4.1 Lipase 14 TSH 1.25 Urine Color Yellow Urine Appearance Clear Urine pH 8.0 Ur Specific [place] <= 1.005 Urine Protein Negative Urine Glucose (UA) Negative Urine Ketones Negative Urine Blood Negative Urine Nitrite Negative Ur Leukocyte Esterase Negative Influenza Type A (PCR) NEGATIVE Influenza Type B (PCR) NEGATIVE RSV RNA Qual (PCR) NEGATIVE SARS-CoV-2 RNA (RT-PCR) NEGATIVE 03/02/25 03:40 WBC 6.1 RBC 3.84 L Hgb 12.0 Hct 36.9 L MCV 96.1 MCH 31.3 MCHC 32.5 RDW 14.0 Plt Count 357 MPV 9.2 L Immature Gran % (Auto) 0.5 H Neut % (Auto) 91.3 H Lymph % (Auto) 6.4 L [place] % (Auto) 1.6 L Eos % (Auto) 0.0 Baso % (Auto) 0.2 Lymph # (Auto) 0.4 L [place] # (Auto) 0.1 Eos # (Auto) 0.0 Baso # (Auto) 0.0 Abs Immat Gran (auto) 0.03 Absolute Neuts (auto) 5.6 Absolute Nucleated RBC 0.000 Nucleated RBC % (auto) 0.0 Smear Tech's Comments VERIFIED PT INR VBG pH VBG pCO2 VBG pO2 VBG HCO3 VBG O2 Saturation VBG Base Excess Sodium 142 Potassium 4.1 Chloride 104 Carbon Dioxide 30 H Anion Gap 12 BUN 13 Creatinine 0.66 Estim Creat Clear Calc 101.5 Estimated GFR > 60 Random Glucose 159 H Lactic Acid Calcium 9.5 Total Bilirubin Direct Bilirubin AST ALT Alkaline Phosphatase Troponin I High Sens NT-Pro-B Natriuret Pep Total Protein Albumin Lipase TSH Urine Color Urine Appearance Urine pH Ur Specific [place] Urine Protein Urine Glucose (UA) Urine Ketones Urine Blood Urine Nitrite Ur Leukocyte Esterase Influenza Type A (PCR) Influenza Type B (PCR) RSV RNA Qual (PCR) SARS-CoV-2 RNA (RT-PCR) Discharge Plan Discharge Anticipated Discharge Date/Time: 03/02/25 11:30 Patient Disposition: Home, Self-Care Discharge Diagnosis: Anxiety causing acute COPD flare in a pt with chronic hypoxia Referrals: Antione Segura PA-C [Primary Care Provider, Internal Medicine] - 1 Week Discharge Medications: New prednisone 20 mg tablet 40 mg PO DAILY 5 Days Qty: 10 0RF Rx Instructions: resume home prednisone after completion of this dosage Continued ipratropium-albuterol 0.5 mg-3 mg(2.5 mg base)/3 mL solution for nebulization 3 ml inhalation Q4H PRN (Reason: for dyspnea) Qty: 180 11RF baclofen 20 mg tablet 20 mg PO TID@0600,1200,1999 aripiprazole [Abilify] 5 mg tablet 5 mg PO DAILY@0600 oxcarbazepine 300 mg tablet 300 mg PO BID@599,1999 atorvastatin 80 mg tablet 80 mg PO DAILY@1999 hyrrtmdpwq-lhfrwaezqwyby-ijzr 50-325-40 mg tablet 1 tab PO DAILY MRX1 PRN (Reason: Migraine Headache) hyoscyamine sulfate 0.125 mg tablet 0.25 mg PO Q6H PRN (Reason: Abdominal Discomfort) gabapentin 300 mg capsule 1,200 mg PO TID@0600,1199,1999 duloxetine 60 mg capsule,delayed release(DR/EC) 60 mg PO BID@0600,1999 (DME) nebulizer and compressor Device See Rx Instructions .Route Qty: 1 0RF Rx Instructions: As directed albuterol sulfate 90 mcg/actuation HFA aerosol inhaler 2 puff inhalation Q4H PRN (Reason: Shortness Of Breath Or Wheezing) aspirin 81 mg tablet,delayed release (DR/EC) 81 mg PO DAILY@1999 oxycodone 5 mg tablet 5 mg PO BID PRN (Reason: Severe Pain (Scale Score 7-10)) Qty: 10 0RF polyethylene glycol 3350 [Miralax] 17 gram/dose Powder 17 g PO DAILY PRN (Reason: Constipation) lorazepam 0.5 mg tablet 0.5 mg PO BEDTIME@1999 Breztri Aerosphere 160-9-4.8 mcg/actuation HFA aerosol inhaler 2 inh inhalation BID@0600,1800 lorazepam 0.5 mg tablet 0.5 mg PO DAILY PRN (Reason: Anxiety) verapamil 120 mg tablet 120 mg PO BID@0600,1999 valsartan 40 mg tablet 40 mg PO DAILY@0600 Protocol: Hold for SBP< HOLD for SBP < : 90 roflumilast [Daliresp] 500 mcg tablet 500 mcg PO DAILY@0600 omeprazole 20 mg capsule,delayed release(DR/EC) 20 mg PO DAILY@0600 nystatin 100,000 unit/gram powder 1 appl topical TID-QID calcium carbonate-vitamin D3 600 mg-5 mcg (200 unit) tablet 1 tab PO DAILY@2000 prazosin 2 mg capsule 2 mg PO DAILY@2000 (DME) Oxygen Home Use Kit See Rx Instructions .Route Rx Instructions: As directed Held prednisone 5 mg tablet 5 mg PO DAILY@0600 Hold Instructions: Resume on 03/06/25. after completion of Prednisone 40mg X 5 days and f/u with Rx Instructions: at the end of tapering schedule started on 02/09/25... 5 mg daily for 4 days 03/01/25 is the second day of it Discharge Orders: Discharge Order (Routine); Ordered 03/02/25 Ordered By: Martha Pierre Diet: Low salt diet Activity on Discharge: As tolerated Stand Alone Forms: Patient Portal Discharge page Print Language: Indonesian Care Plan Goals: See Dr. Henriquez in outpatient setting Continue taking prednisone 40 mg for 5 days, following which she can continue her home regimen of 5 mg See the PCP within a week See the dehydrogenation supervisor Dr. Henriquez outpatient within a week Health Concerns: Significant anxiety COPD exacerbation Plan of Treatment: See above Assessment: See above
--- NOTE | 2025-03-02 12:11 | MHC.EDTECH ---
Patient was assisted tot he commode had one large firm bowl movement, was cleaned and returned to bed. Patients pure-wick was discontinued with an out put of 500mL.
--- NOTE | 2025-03-02 12:12 | MHC.CM.PN ---
PT LIVES WITH HER AND IS TYPICALLY INDEPENDENT WITH PERSONAL CARE SHE WAS ACTIVE WITH CD [facility] SHE HAS A ROLLATOR AND O2 FROM [facility] HCP ON FILE PCP: MILES DAVIS DCP: PT DISCHARGED HOME TODAY WITH RESUMPTION OF [facility] FAMILY TO TRANSPORT
== END 2025-03-02 12:07 | disposition home health service (06) | DRG 140 ==
LOC: HO.ED 18:30 → HO.EDOVER 19:05
PROVIDERS: Nurse Practitioner Family; Admitting Provider Internal Medicine; Emergency Provider Emergency Medicine; PCP Physician Assistant Surgical; Visit Provider Student in an Organized Health Care Education/Training Program
DX: J43.9 Emphysema, unspecified (principal); J96.01 Acute respiratory failure with hypoxia; Z99.81 Dependence on supplemental oxygen; I50.32 Chronic diastolic (congestive) heart failure; E66.9 Obesity, unspecified; I35.0 Nonrheumatic aortic (valve) stenosis; I10 Essential (primary) hypertension; E78.5 Hyperlipidemia, unspecified; F41.9 Anxiety disorder, unspecified; F32.A Depression, unspecified; Z86.73 Personal history of transient ischemic attack (TIA), and cerebral infarction without residual deficits; Z68.33 Body mass index [BMI] 33.0-33.9, adult; G89.29 Other chronic pain; Z71.3 Dietary counseling and surveillance; G50.0 Trigeminal neuralgia; M54.81 Occipital neuralgia; G47.33 Obstructive sleep apnea (adult) (pediatric); Z87.891 Personal history of nicotine dependence; Z20.822 Contact with and (suspected) exposure to COVID-19; Z79.52 Long term (current) use of systemic steroids; Z79.82 Long term (current) use of aspirin; Z79.899 Other long term (current) drug therapy
CPT/HCPCS: 36415; 71045; 80048; 80076; 81003; 82803; 83605; 83690; 83880; 84443; 84484; 85025; 85610; 87040; 87637; 93005; 94640; 99222; 99285; J1271; J1938; J2919; J3475

== ENCOUNTER → 2025-03-01 14:47 | Outpatient (BNV) | payer BC, SELFPAY | PROVIDERS: Emergency Provider Emergency Medicine; Visit Provider Radiology Diagnostic Radiology | DX: R06.02 Shortness of breath (principal) | CPT/HCPCS: 71045 ==

== ENCOUNTER → 2025-03-01 14:47 | Outpatient (BNV) | payer BC, SELFPAY | PROVIDERS: Admitting Provider Internal Medicine; Emergency Provider Emergency Medicine; PCP Physician Assistant Surgical; Visit Provider Internal Medicine | DX: R06.02 Shortness of breath (principal) | CPT/HCPCS: 93010 ==

== ENCOUNTER → 2025-03-01 18:49 | Outpatient (BNV) | payer BC, SELFPAY | PROVIDERS: Admitting Provider Internal Medicine; Emergency Provider Emergency Medicine; PCP Physician Assistant Surgical; Visit Provider Nurse Practitioner Family | DX: J96.01 Acute respiratory failure with hypoxia (principal); J44.1 Chronic obstructive pulmonary disease with (acute) exacerbation | CPT/HCPCS: 99223; 99239 ==

== ENCOUNTER 2025-03-06 01:43 | Emergency (ER) | payer BC, SELFPAY ==
--- OUTSIDE RECORDS SUMMARY | 2025-03-01 11:00 | XMS_ITS | Encounter Summary ---
Author Organization [facility] Address [address] [place] [address] Phone Care Team Providers Care Medical Research Tech Name Role Phone Jn Cardoza MD Unavailable Denys Henriquez MD Unavailable Antione Segura PA-C Primary Care Provider Rhett Cortez MD Unavailable Reason for Visit * Auth/Cert (Routine) Specialty Diagnoses / Procedures Referred By Dary smith Referred To Contact Referral ID Status Reason Start Date Expiration Date Visits Re quested Visits Authorized [id number] 1 1 Encounter Details Date Type Department Care Team (Late st Contact Info) Description 03/01/2025 11:00 AM EDT Home Care Visit [facility] [address] [place] [phone] Rich Mariscal [address] [place] [address] 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 [...] Visit [facility] [address] [place] [address] Shakira Hand, HUA [address] [place] [phone] 03/15/2025 Home Care Visit [facility] [address], [place] [phone] Shakira Hand RN [address] [place] [phone] 03/22/2025 1:00 AM EDT Home Care Visit [facility] [address] [place] [address] Shakira Hand, HUA [address] [place] [address] 03/28/2025 9:40 AM EDT Office Visit [facility] Internal Medicine [address] [place] [address] Antione Segura PA-C [address] [place] [address] 03/29/2025 2:00 AM EDT Home Care Visit [facility] [address] [place] [phone] Shakira Hand, HAU [address] [place] [phone] 04/05/2025 2:00 AM EDT Home Care Visit [facility] [address] [place] [phone] Shakira Hand RN [address] [place] [address] 04/12/2025 1:30 AM EDT Home Care Visit [facility] [address] [place] [phone] Shakira Hand RN [address] [place] [address] 04/19/2025 12:30 AM EST Home Care Visit [facility] [address] [place] [phone] Shakira Hand RN [address] [place] [phone] 04/25/2025 Appointment [facility] [address] [place] [phone] Shakira Hand RN [address] [place] [phone] 06/25/2025 9:30 AM EST Telemedicine [facility] Neurology [address] [place] [address] Jn Cardoza MD [address] [place] [address], 2nd [place] [address] [email or web address] documented as of this encounter Visit Diagnoses Not on filedocumented in this encounter Additional Health Concerns Assessment Noted Time PHQ-9 Depression Total Score: 15 025 9:44 AM EDT PHQ-2 Depression Total Score: 4 02/01/20 25 9:44 AM EDT documented as of this encounter Home Health Visit - Care Plan Visit Details Visit 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 Discipline -Senior Care Problems Problem Description Start Date Status Goals Interve ntions HH - Medication Management Disciplines: All Active Home Health Disciplines, Senior Care 12/27/2024 Active 1 goal linked to scheduled/document [...] Completed documented in this encounter Care Teams Medical Research Tech Relationship Specialty Start Date End Date Antione Segura PA-C [address] [place] [address] [email or web address] PCP - General Physician Top Collar Maker 10/12/24 Jn Cardoza MD 22 [facility], 2nd [place] [address] [email or web address] Neurology 02/03/24 Denys Henriquez MD [address] [place] [address] [place] [address] Pulmonary Disease 02/03/24 Rhett Cortez MD [address] [place] [phone] [email or web address] Insurance Assigned Provider 01/20/25 documented as of this encounter Additional Source Comments The information contained in this document represents components of the legal health record. It is not the complete legal health record.[facility]
[2025-03-06] VITALS (7 sets, daily range): BP systolic 142–168; BP diastolic 70–80; PULSE 77–83; RESP 22–31; TEMP 36.3–37; O2SAT 95–99; BMI 41.2
--- NOTE | 2025-03-06 | ECG_ITS ---
Test Reason : SOB Blood Pressure : */* mmHG Vent. Rate : 83 BPM Atrial Rate : 83 BPM P-R Int : 130 ms QRS Dur : 84 ms QT Int : 360 ms P-R-T Axes : 59 60 46 degrees QTcB Int : 423 ms Normal sinus rhythm Normal ECG When compared with ECG of 01-Mar-2025 16:02, No significant change was found Referred By: Generic ED Physician Electronically Signed By: Eladio Nelson
[2025-03-06 02:10] LABS: Hematocrit 37.8 % (37.0-47.0); Hemoglobin 12.1 g/dl (12.0-16.0); Mean Corpuscular Volume 97.9 fL (80.0-98.0); Platelet Count 379 X10*3/uL (160-400); Red Blood Count 3.86 X10*6/uL (4.20-5.50)
[2025-03-06] MEDS: Magnesium Sulfate/H2O 2 GM/50 ML PIGGYBACK IV (02:13)
[2025-03-06] MEDS: Albuterol Sulfate 2.5 MG, Albuterol/Iprat 2.5/0.5MG 3 ML 3 ML INHALE (02:16)
[2025-03-06 02:25] LABS: Calcium 9.0 mg/dL (8.4-10.2); Chloride 103 mmol/L (96-108); Potassium 3.8 mmol/L (3.3-5.1); Sodium 145 mmol/L (135-145)
[2025-03-06 02:32] LABS: Troponin-I High Sensitivity 45.2 ng/L (<3.5-17.0)
--- OUTSIDE RECORDS SUMMARY | 2025-03-06 02:50 | XMS_ITS | Encounter Summary ---
Author Organization [facility] Address [address] [place] [phone] Phone Care Team Providers Care Sofa Inspector Name Role Phone Lang Germain MD Unavailable Jennifer Duke GRAVITY PROSPECTING OPERATOR HELPER Primary Care Provider Sirisha Huertas VIDEO GAME DESIGNER Primary Care Provider [phone] Jn Cardoza MD Unavailable Denys Henriquez MD Unavailable Liyah Patterson MD Unavailable Liyah Patterson MD Primary Care Provider [phone] Antione Segura PA-C Primary Care Provider Rhett Cortez MD Unavailable Encounter Details Date Type Department Care Team (Late st Contact Info) Description 05/06/2021 Procedure [facility], [address] [address] Social History Tobacco Use Types Packs/Day Years [...] [facility] [address] [place] [phone] Shakira Hand RN [address] [place] [address] 03/15/2025 Home Care Visit [facility] [address] [place] [phone] Shakira Hand RN [address] [place] [phone] 03/22/2025 1:00 AM EDT Home Care Visit [facility] [address] [place] [phone] Shakira Hand RN [address] [place] [phone] 03/28/2025 9:40 AM EDT Office Visit [facility] [address] [place] [address] Antione Segura PA-C [address] [place] [address] [email or web address] 03/29/2025 2:00 AM EDT Home Care Visit [facility] [address] [place] [phone] Shakira Hand RN [address] [place] [phone] 04/05/2025 2:00 AM EDT Home Care Visit [facility] [address] [place] [phone] Shakira Hand RN [address] [place] [address] 04/12/2025 1:30 AM EDT Home Care Visit [facility] [address] [place] [phone] Shakira Hand RN [address] [place] [address] 04/19/2025 12:30 AM EST Home [facility] [address] [place] [phone] Shakira Hand RN [address] [place] [address] 04/25/2025 Appointment [facility] [address] [place] [phone] Shakira Hand RN [address] [place] [phone] 06/25/2025 9:30 AM EST Telemedicine [facility] Neurology [address] [place] [phone] Jn Cardoza MD [address] [place] [address], [address] [place] [address] [email or web address] documented as of this encounter Visit Diagnoses Not on filedocumented in this encounter Additional Health Concerns Assessment Noted Time PHQ-2 Depression Total Score: 0 05/25/20 19 9:02 AM EST documented as of this encounter Care Teams Sofa Inspector Relationship Specialty Start Date End Date Jennifer Duke, GRAVITY PROSPECTING OPERATOR HELPER [address] [place] [phone] [email or web address] PCP - General Family Medicine 01/31/20 06/22/23 Sirisha Huertas FNP [address] [place] [phone] [email or web address] PCP - General Nurse Practitioner 06/23/23 08/03/24 Liyah Patterson MD [address] [place] [phone] [email or web address] PCP - General Family Medicine 08/04/24 10/11/24 Antione Segura PA-C [address] [place] [phone] [email or web address] PCP - General Physician Brick Carrier 10/12/24 Lang Germain MD [address] [place] [phone] [email or web address] Insurance Assigned Provider 09/18/23 02/19/24 Jn Cardoza MD [address] [place] [address], [address] [place] [address] [email or web address] Neurology 02/03/24 Denys Henriquez MD [address] [place] [address] [place] [address] Pulmonary Disease 02/03/24 Liyah Patterson MD [address] [place] [phone] [email or web address] Insurance Assigned Provider 02/19/24 01/20/25 Rhett Cortez MD [address] [place] [phone] [email or web address] Insurance Assigned Provider 01/20/25 documented as of this encounter Additional Source Comments The information contained in this document represents components of the legal health record. It is not the complete legal health record.[facility]
--- OUTSIDE RECORDS SUMMARY | 2025-03-06 02:50 | XMS_ITS | Encounter Summary ---
Author Organization [facility] Address [address] [place] [address] Phone Care Team Providers Care Environmental Health And Safety Intern Name Role Phone Lang Germain MD Unavailable Jennifer Duke MAGICIAN HELPER Primary Care Provider Sirisha Huertas REHABILITATION CASEWORKER Primary Care Provider Jn Cardoza MD Unavailable Denys Henriquez MD Unavailable Liyah Patterson MD Unavailable Liyah Patterson MD Primary Care Provider [phone] Antione Segura PA-C Primary Care Provider Rhett Cortez MD Unavailable Encounter Details Date Type Department Care Team (Late st Contact Info) Description 06/30/2022 Procedure Pass [facility], Ct Scan - [address] [address] Social History Tobacco Use Types Packs/Day Years [...] Care Visit [facility] [address] [place] [phone] Shakira Hand RN [address] [place] [address] [email or web address] 03/15/2025 Home Care Visit [facility] [address] [place] [phone] Shakira Hand RN [address] [place] [address] [email or web address] 03/22/2025 1:00 AM EDT Home Care Visit [facility] [address] [place] [phone] Shakira Hand RN [address] [place] [address] [email or web address] 03/28/2025 9:40 AM EDT Office Visit [facility] [address] [place] [address] Antione Segura PA-C 40 [place] [address] [email or web address] 03/29/2025 2:00 AM EDT Home Care Visit [facility] [address] [place] [phone] Shakira Hand RN [address] [place] [address] 04/05/2025 2:00 AM EDT Home Care Visit [facility] [address] [place] [phone] Shakira Hand RN [address] [place] [address] 04/12/2025 1:30 AM EDT Home Care Visit [facility] [address] [place] [phone] Shakira Hand RN [address] [place] [address] 04/19/2025 12:30 AM EST Home Care Visit [facility] [address] [place] [phone] Shakira Hand RN [address] [place] [address] 04/25/2025 Appointment [facility] [address] [place] [phone] Shakira Hand RN [address] [place] [address] 06/25/2025 9:30 AM EST Telemedicine [facility] Neurology [address] [place] [address] Jn Cardoza MD [address] [facility], 2nd [place] [address] [email or web address] documented as of this encounter Visit Diagnoses Not on filedocumented in this encounter Additional Health Concerns Assessment Noted Time PHQ-9 Depression Total Score: 18 023 8:53 AM EST PHQ-2 Depression Total Score: 6 06/26/19 23 8:53 AM EST documented as of this encounter Care Teams Environmental Health And Safety Intern Relationship Specialty Start Date End Date Jennifer Duke, MAGICIAN HELPER [address] [place] [address] [email or web address] PCP - General Family Medicine 01/31/20 06/22/23 Sirisha Huertas, REHABILITATION CASEWORKER [address] [place] [address] [email or web address] PCP - General Nurse Practitioner 06/23/23 08/03/24 Liyah Patterson MD [address] [place] [address] [email or web address] PCP - General Family Medicine 08/04/24 10/11/24 Antione Segura PA-C [address] [place] [address] [email or web address] PCP - General Physician Smelter Liner 10/12/24 Lang Germain MD [address] [place] [address] [email or web address] Insurance Assigned Provider 09/18/23 02/19/24 Jn Cardoza MD [address] [place] [address], 2nd [place] [address] [email or web address] Neurology 02/03/24 Denys Henriquez MD [address] [place] [address] [place] [address] Pulmonary Disease 02/03/24 Liyah Patterson MD [address] [place] [address] [email or web address] Insurance Assigned Provider 02/19/24 01/20/25 Rhett Cortez MD [address] [place], [place] [phone] [email or web address] Insurance Assigned Provider 01/20/25 documented as of this encounter Additional Source Comments The information contained in this document represents components of the legal health record. It is not the complete legal health record.[facility]
--- OUTSIDE RECORDS SUMMARY | 2025-03-06 02:50 | XMS_ITS | Encounter Summary ---
Author Organization [facility] Address [address] [place] [address] Phone Care Team Providers Care Box Strapper Name Role Phone Jn Cardoza MD Unavailable Denys Henriquez MD Unavailable Antione Segura PA-C Primary Care Provider [phone] Rhett Cortez MD Unavailable Encounter Details Date Type Department Care Team (Late st Contact Info) Description 02/20/2025 Orders Only [facility] Internal Medicine [address] [place] [address] Provider, MD Omar [address] [place] [address] Social History Tobacco Use Types Packs/Day [...] high school, GED, job training, learning the Sudanese language, technical skills, or developing parenting skills)? [...] Care Visit [facility] [address] [place] [phone] Shakira Hand RN [address] [place] [address] 03/15/2025 Home Care Visit [facility] [address] [place] [phone] Shakira Hand RN [address] [place] [address] 03/22/2025 1:00 AM EDT Home Care Visit [facility] [address] [place] [phone] Shakira Hand RN [address] [place] [address] 03/28/2025 9:40 AM EDT Office Visit [facility] Internal Medicine 40 [place] [address] Antione Segura PA-C 40 [place] [address] 03/29/2025 2:00 AM EDT Home Care Visit [facility] [address] [place] [phone] Shakira Hand RN [address] [place] [address] 04/05/2025 2:00 AM EDT Home Care Visit [facility] [address] [place] [phone] Shakira Hand RN [address] [place] [address] 04/12/2025 1:30 AM EDT Home Care Visit [facility] [address] [place] [phone] Shakira Hand RN [address] [place] [address] 04/19/2025 12:30 AM EST Home Care Visit [facility] [address] [place] [phone] Shakira Hand RN [address] [place] [address] 04/25/2025 Appointment [facility] [address] [place] [address] Shakira Hand RN [address] [place] [address] 06/25/2025 9:30 AM EST Telemedicine [facility] Neurology [address] [place] [address] Jn Cardoza MD [address] [place] [address], [address] [place] [address] [email or web address] documented as of this encounter Procedures Procedure [...] documented as of this encounter Care Teams Box Strapper Relationship Specialty Start Date End Date Antione Segura PA-C [address] [place] [address] PCP - General Physician Collaborative Teacher 10/12/24 Jn Cardoza MD [address] [place] [address], 2nd [place] [address] Neurology 02/03/24 Denys Henriquez MD [address] [place] [address] [place] [address] Pulmonary Disease 02/03/24 Rhett Cortez MD [address] [place] [address] [email or web address] Insurance Assigned Provider 01/20/25 documented as of this encounter Additional Source Comments The information contained in this document represents components of the legal health record. It is not the complete legal health record.[facility]
--- OUTSIDE RECORDS SUMMARY | 2025-03-06 02:50 | XMS_ITS | Clinical Summary ---
Author Organization [facility] Address [address] [id number] Care Team Providers Care Water Filter Cleaner Name Role Phone Antione Segura Primary Care Provider [phone] Allergies Active Allergy Reactions Criticality Noted Date [...] Type Department Care Team Description 01/29/2025 Telephone [facility] [address] [place] [address] Leasing Assistant: Federico Hill Telephone Intake, Staff PAC Order Request; Dr. Bautista 01/25/2025 Orders Only [facility] [address] [place] [address] Leasing Assistant: Remy Santos MD 01/25/2025 Telephone [facility] Pulmonary Function Lab [address] [place] [address] Remy Bautista MD Whalen/med was not sent to pharmacy 01/24/2025 11:00 AM EDT Office Visit [facility] [address] [place] [address] Leasing Assistant: Remy Santos MD Stage 2 moderate COPD by GOLD classification (HCC) (Primary Dx); Mass of left breast, unspecified quadrant 12/21/2024 Orders Only External Imaging [address] [place] [address] Radiology, External from Last 3 Months Family [...] Info) Description 05/30/2025 2:00 PM EST Follow-Up [facility] [address] [place] [address] [phone] Leasing Assistant: Remy Santos MD [address] [place] [address] Health Maintenance Due Date Last Done Comments [...] complete this topic Procedures * Due to [employer] law, this organization might not be sharing negative HIV tests. Procedure Name Priority Date/Time Associated Diagnosis Comments LAB - SCANNED 01/10/2025 AMB EXTERNAL XR CHEST, OUTSI DE RESULT 01/04/2025 AMB EXTERNAL ANGIOGRAM, OUTS YUN RESULT 12/21/[address] CHEST, OUTSI DE RESULT 11/30/2024 from Last 3 Months or Most Recently Relevant to Health Maintenance Results * Due to [employer] law, this organization might not be sharing [...] S Final Result from Last 3 Months or Most Recently Relevant to Health Maintenance Insurance [facility] HMO/POS Care Teams Water Filter Cleaner Relationship Specialty Start Date End Date Antione Segura PA [address] [place] [address] PCP - General Emergency Medicine 01/10/25
--- OUTSIDE RECORDS SUMMARY | 2025-03-06 02:50 | XMS_ITS | Encounter Summary ---
Author Organization [facility] Address [address] [place] [address] Phone Care Team Providers Care Implementation Advisor Name Role Phone Jn Cardoza MD Unavailable Denys Henriquez MD Unavailable [phone] Antione Segura PA-C Primary Care Provider Rhett Cortez MD Unavailable Reason for Visit * Reason Onset Date Comments PFT 01/24/2025 Encounter Details Date Type Department Care Team (Late st Contact Info) Description 01/24/2025 Telephone [facility] [address] [place], [place] [phone] Antione Segura PA-C [address] [place] [address] [email or web address] PFT Social History Tobacco Use Types Packs/Day [...] high school, GED, job training, learning the Mongolian language, technical skills, or developing parenting skills)? [...] Document(s) requested:all PFT testing with [facility] and [facility] Call [facility] CSS Agent (Please do not reply to this user, as this inbox is not monitored. Thank you.) Thank you. documented in this encounter Plan of Treatment Upcoming Encounters Date Type Department Care Team (Late st Contact Info) Description 03/08/2025 1:00 AM EDT Home Care Visit [facility] [address] [place] [address] Shakira Hand RN [address] [place] [address] 03/15/2025 Home Care Visit [facility] [address] [place], [place] [phone] Shakira Hand RN [address] [place] [address] 03/22/2025 1:00 AM EDT Home Care Visit [facility] [address] [place], [place] [phone] Shakira Hand RN [address] [place] [address] 03/28/2025 9:40 AM EDT Office Visit [facility] [address] [place] [address] Antione Segura PA-C 40 [place] [address] 03/29/2025 2:00 AM EDT Home Care Visit [facility] [address] [place] [phone] Shakira Hand RN [address] [place] [address] 04/05/2025 2:00 AM EDT Home Care Visit [facility] [address] [place] [phone] Shakira Hand RN [address] [place] [address] 04/12/2025 1:30 AM EDT Home Care Visit [facility] [address] [place] [phone] Shakira Hand RN [address] [place] [address] 04/19/2025 12:30 AM EST Home Care Visit [facility] [address] [place] [phone] Shakira Hand RN [address] [place] [address] 04/25/2025 Appointment [facility] [address] [place] [phone] Shakira Hand RN [address] [place] [address] 06/25/2025 9:30 AM EST Telemedicine [facility] [place] [address] Jn Cardoza MD [address] [place] [address] documented as of this encounter Visit Diagnoses Not on filedocumented in this encounter Additional Health Concerns Assessment Noted Time PHQ-9 Depression Total Score: 025 9:08 PM EDT PHQ-2 Depression Total Score: 12/28/19 25 9:08 PM EDT documented as of this encounter Care Teams Implementation Advisor Relationship Specialty Start Date End Date Antione Segura PA-C [address] [place] [address] PCP - General Physician Bandage Winding Machine Operator 10/12/24 Jn Cardoza MD [address] [place] [address] Neurology 02/03/24 Denys Henriquez MD [address] [place] [address] [place] [address] Pulmonary Disease 02/03/24 Rhett Cortez MD [address] [place] [address] Insurance Assigned Provider 01/20/25 documented as of this encounter Additional Source Comments The information contained in this document represents components of the legal health record. It is not the complete legal health record.[facility]
--- OUTSIDE RECORDS SUMMARY | 2025-03-06 02:50 | XMS_ITS | Encounter Summary ---
Author Organization [facility] Address [address] [place] [address] Care Team Providers Care Audio Visual Engineer Name Role Phone Antione Segura Primary Care Provider [phone] Reason for Visit * Reason Onset Date Comments PAC Order Request 01/29/2025 Dr. Bautista 01/29/2025 Encounter Details Date Type Department Care Team (Late st Contact Info) Description 01/29/2025 Telephone [facility] [address] [place] [address] Forging Die Sinker: Federico Hill Telephone Intake, Staff PAC Order [...] 2:23 PM EDT Spoke to Pulmonary at [facility] regarding PFTs. They stated they can accept order fromDr. Bautista. Order faxed to [phone]. * Telephone Encounter - Amalia Paredes RN - 01/29/2025 1:38 PM EDT Spoke to patient. She stated not transferring care but would like to have the PFTs done closer to her, as it is a two [address] to [facility]. She is on portable oxygen and concerned that she would not have enough for such a long day of travel and testing. * Telephone Encounter - Diana Naeem - 01/29/2025 12:10 PM EDT Pt of Dr. Bautista would like PFT order faxed over to [facility] closer to her home, please advise pt # [phone] documented in this encounter Plan of Treatment Upcoming Encounters Date Type Department Care Team (Late st Contact Info) Description 05/30/2025 2:00 PM EST Follow-Up [facility] [address] [place] [address] Forging Die Sinker: Remy Santos MD [address] [place] [address] documented as of this encounter Visit Diagnoses Not on filedocumented in this encounter Care Teams Audio Visual Engineer Relationship Specialty Start Date End Date Antione Segura PA [address] [place] [address] PCP - General Emergency Medicine 01/10/25 documented as of this encounter
--- OUTSIDE RECORDS SUMMARY | 2025-03-06 02:50 | XMS_ITS | Encounter Summary ---
Author Organization [facility] Address [address] [address] Phone Care Team Providers Care Wildland Fire Fighter Name Role Phone Jn Cardoza MD Unavailable Denys Henriquez MD Unavailable Liyah aPtterson MD Unavailable Antione Segura-C Primary Care Provider [phone] Rhett Cortez MD Unavailable Encounter Details Date Type Department Care Team (Late st Contact Info) Description 12/06/2024 Home Health Resumption of Care Planning [facility] [address] [place] [phone] Diana Torres, RN [address] [place] [address] [email or web address] Social History Tobacco [...] Care Visit [facility] [address] [place] [phone] Shakira Hand RN [address] [place] [address] 03/15/2025 Home [facility] Visit [facility] [address] [place] [address] Shakira Hand RN [address] [place] [address] 03/22/2025 1:00 AM EDT Home Care Visit [facility] [address] [place] [phone] Shakira Hand RN [address] [place] [address] 03/28/2025 9:40 AM EDT Office Visit [facility] 40 [place] [address] Antione Segura PA-C [address] [place], [place] [phone] 03/29/2025 2:00 AM EDT Home Care Visit [facility] [address] [place] [phone] Shakira Hand RN [address] [place] [address] 04/05/2025 2:00 AM EDT Home Care Visit [facility] [address] [place] [phone] Shakira Hand RN [address] [place] [address] 04/12/2025 1:30 AM EDT Home Care Visit [facility] [address] [place] [phone] Shakira Hand RN [address] [place] [address] 04/19/2025 12:30 AM EST Home Care Visit [facility] [address] [place] [phone] Shakira Hand RN [address] [place] [address] 04/25/2025 Appointment [facility] [address] [place] [phone] Shakira Hand RN [address] [place] [address] 06/25/2025 9:30 AM EST Telemedicine [facility] Neurology [address] [place] [address] Jn Cardoza MD 22 [facility] 2nd [place] [address] documented as of this encounter Visit Diagnoses Not on filedocumented in this encounter Additional Health Concerns Assessment Noted Time PHQ-9 Depression Total Score: 21 025 12:31 PM EDT PHQ-2 Depression Total Score: 6 10/13/19 25 12:31 PM EDT documented as of this encounter Care Teams Wildland Fire Fighter Relationship Specialty Start Date End Date Antione Segura PA-C [address] [place] [address] [email or web address] PCP - General Physician Railroad Track Mechanic 10/12/24 Jn Cardoza MD [address] [facility], 2nd [place] [address] [email or web address] Neurology 02/03/24 Denys Henriquez MD [address] [place] [address] [place] [address] Pulmonary Disease 02/03/24 Liyah Patterson MD 15 [facility] [address]. [address] [place] [address] [email or web address] Insurance Assigned Provider 02/19/24 01/20/25 Rhett Cortez MD [address] [place] [phone] Insurance Assigned Provider 01/20/25 documented as of this encounter Additional Source Comments The information contained in this document represents components of the legal health record. It is not the complete legal health record.[facility]
--- OUTSIDE RECORDS SUMMARY | 2025-03-06 02:50 | XMS_ITS | Encounter Summary ---
Author Organization [facility] Address [address] [place] [address] [place] [address] Phone Care Team Providers Care Physician General Practice Name Role Phone Lang Germain MD Unavailable [phone] Jennifer Duke CONTACT CENTER DIRECTOR Primary Care Provider Sirisha Huertas MAKE UP MAN Primary Care Provider Jn Cardoza MD Unavailable Denys Henriquez MD Unavailable Liyah Patterson MD Unavailable Liyah Patterson MD Primary Care Provider [phone] Antione Segura PA-C Primary Care Provider [phone] Rhett Cortez MD Unavailable Encounter Details Date Type Department Care Team (Late st Contact Info) Description 11/11/2021 Transcribe Orders [facility] PFT Lab [address] [place] [address] Jennifer Duke, CONTACT CENTER DIRECTOR [address] [facility] [address] [place] [address] Social History Tobacco Use Types Packs/Day Years [...] [facility] Visit [facility] [address] [place] [phone] Shakira Hand RN [address] [place] [address] 03/15/2025 Home Care Visit [facility] [address] [place] [phone] Shakira Hand RN [address] [place] [address] 03/22/2025 1:00 AM EDT Home Care Visit [facility] [address] [place] [phone] Shakira Hand RN [address] [place] [address] 03/28/2025 9:40 AM EDT Office Visit [facility] [place] [facility] 40 [place], [place] [phone] Antione Segura PA-C [address] [place], [place] [phone] 03/29/2025 2:00 AM EDT Home Care Visit [facility] [address] [place] [phone] Shakira Hand RN [address] [place] [address] 04/05/2025 2:00 AM EDT Home Care Visit [facility] [address] [place] [phone] Shakira Hand RN [address] [place] [address] 04/12/2025 1:30 AM EDT Home Care Visit [facility] [address] [place] [phone] Shakira Hand RN [address] [place] [address] 04/19/2025 12:30 AM EST Home Care Visit [facility] [address] [place] [phone] Shakira Hand RN [address] [place] [address] 04/25/2025 Appointment [facility] [address] [place] [phone] Shakira Hand RN [address] [place] [address] 06/25/2025 9:30 AM EST Telemedicine [facility] Neurology [address] [place] [address] Jn Cardoza MD [address] [facility], 2nd [place] [address] [email or web address] documented as of this encounter Visit Diagnoses Not on filedocumented in this encounter Additional Health Concerns Assessment Noted Time PHQ-2 Depression Total Score: 0 05/25/20 9:02 AM EST documented as of this encounter Care Teams Physician General Practice Relationship Specialty Start Date End Date Jennifer Duke, CONTACT CENTER DIRECTOR [address] [place] [address] [email or web address] PCP - General Family Medicine 01/31/20 06/22/23 Sirisha Huertas, AGA [address] [place] [address] [email or web address] PCP - General Nurse Practitioner 06/23/23 08/03/24 Liyah Patterson MD [address] [place] [address] [email or web address] PCP - General Family Medicine 08/04/24 10/11/24 Antione Segura PA-C [address] [place] [address] [email or web address] PCP - General Physician City Superintendent 10/12/24 Lang Germain MD [address] [place] [address] [email or web address] Insurance Assigned Provider 09/18/23 02/19/24 Jn Cardoza MD [address] [place] [address], 2nd [place] [address] [email or web address] Neurology 02/03/24 Denys Henriquez MD [address] [place] [address] [place] [address] Pulmonary Disease 02/03/24 Liyah Patterson MD [address] [place] [address] [email or web address] Insurance Assigned Provider 02/19/24 01/20/25 Rhett Cortez MD [address] [place] [address] [email or web address] Insurance Assigned Provider 01/20/25 documented as of this encounter Additional Source Comments The information contained in this document represents components of the legal health record. It is not the complete legal health record.[facility]
--- OUTSIDE RECORDS SUMMARY | 2025-03-06 02:50 | XMS_ITS | Encounter Summary ---
Author Organization [facility] Address [address] [place] [address] Phone Care Team Providers Care Wallpaper Printer Helper Name Role Phone Lang Germain MD Unavailable Jennifer Duke CHILDRENS CLUB ATTENDANT Primary Care Provider Sirisha Huertas OIL CHANGER Primary Care Provider Jn Cardoza MD Unavailable Denys Henriquez MD Unavailable Liyah Patterson MD Unavailable Liyah Patterson MD Primary Care Provider [phone] Antione Segura PA-C Primary Care Provider [phone] Rhett Cortez MD Unavailable Encounter Details Date Type Department Care Team (Late st Contact Info) Description 11/27/2021 Procedure Pass [facility], [address] [place] [address] Social History Tobacco Use Types Packs/Day Years [...] Care Visit [facility] [address] [place] [address] Shakira Hand RN [address] [place] [address] [email or web address] 03/15/2025 Home Care Visit [facility] [address] [place] [address] Shakira Hand RN 168 [place] [address] [email or web address] 03/22/2025 1:00 AM EDT Home Care Visit [facility] [address] [place] [address] Shakira Hand RN 168 [place] [address] [email or web address] 03/28/2025 9:40 AM EDT Office Visit [facility] [place] [facility] 40 [place], [place] [phone] Antione Segura PA-C 40 [place], [place] [phone] 03/29/2025 2:00 AM EDT Home [facility] Visit [facility] [address] [place] [phone] Shakira Hand RN 168 [place] [address] 04/05/2025 2:00 AM EDT Home Care Visit [facility] [address] [place] [phone] Shakira Hand RN 168 [place] [address] 04/12/2025 1:30 AM EDT Home Care Visit [facility] [address] [place] [phone] Shakira Hand RN 168 [place] [address] 04/19/2025 12:30 AM EST Home Care Visit [facility] [address] [place] [phone] Shakira Hand, HUA 168 [place] [address] 04/25/2025 Appointment [facility] [address] [place] [phone] Shakira Hand RN 168 [place] [address] 06/25/2025 9:30 AM EST Telemedicine [facility] Neurology [address] [place] [address] Jn Cardoza MD [address] [place] [address], 2nd [place] [address] documented as of this encounter Visit Diagnoses Not on filedocumented in this encounter Additional Health Concerns Assessment Noted Time PHQ-2 Depression Total Score: 0 05/25/20 19 9:02 AM EST documented as of this encounter Care Teams Wallpaper Printer Helper Relationship Specialty Start Date End Date Jennifer Duke, CHILDRENS CLUB ATTENDANT [address] [place] [address] [email or web address] PCP - General Family Medicine 01/31/20 06/22/23 Sirisha Huertas FNP [address] [place] [address] [email or web address] PCP - General Nurse Practitioner 06/23/23 08/03/24 Liyah Patterson MD [address] [place] [address] [email or web address] PCP - General Family Medicine 08/04/24 10/11/24 Antione Segura PA-C [address] [place] [address] [email or web address] PCP - General Physician Video Game Engineer 10/12/24 Lang Germain MD [address] [place] [address] [email or web address] Insurance Assigned Provider 09/18/23 02/19/24 Jn Cardoza MD [address] [place] [address], 2nd [place] [address] Neurology 02/03/24 Denys Henriquez MD [address] [place] [address] [place] [address] Pulmonary Disease 02/03/24 Liyah Patterson MD [address] [place] [address] [email or web address] Insurance Assigned Provider 02/19/24 01/20/25 Rhett Cortez MD [address] [place] [address] [email or web address] Insurance Assigned Provider 01/20/25 documented as of this encounter Additional Source Comments The information contained in this document represents components of the legal health record. It is not the complete legal health record.[facility]
--- OUTSIDE RECORDS SUMMARY | 2025-03-06 02:50 | XMS_ITS | Encounter Summary ---
Author Organization [facility] Address [address] [place] [address] Phone Care Team Providers Care Vocational Education Teacher Name Role Phone Charbel Webber MD Unavailable Alverto Gandara MD Unavailable [phone] Maikel Rawls MD Unavailable [phone] Jennifer Duke CLIP COATER Primary Care Provider Lang Germain MD Primary Care Provider Jennifer Duke CLIP COATER Primary Care Provider Lang Germain MD Unavailable Lang Germain MD Primary Care Provider Jennifer Duke CLIP COATER Primary Care Provider Lang Germain MD Primary Care Provider Jennifer uDke CLIP COATER Primary Care Provider Lang Germain MD Primary Care Provider Jennifer Duke CLIP COATER Primary Care Provider Lang Germain MD Primary Care Provider [place], Jennifer L CLIP COATER Unavailable [phone] Jennifer Duke CLIP COATER Primary Care Provider [phone] Lang Germain MD Primary Care Provider [phone] Jennifer Duke CLIP COATER Primary Care Provider [phone] Sirisha Huertasis INDUSTRIAL PAINTER Primary Care Provider [phone] Jn Cardoza MD Unavailable Denys Henriquez MD Unavailable [phone] Liyah Patterson MD Unavailable Liyah Patterson MD Primary Care Provider [phone] Antione Segura PA-C Primary Care Provider [phone] Rhett Cortez MD Unavailable Encounter Details Date Type Department Care Team (Late st Contact Info) Description 09/13/2018 Procedure Pass [facility], [address] [address] Social History Tobacco Use Types Packs/Day Years [...] 03/08/2025 1:00 AM EDT [facility] [address] [place] [phone] Shakira Hand, HUA [address] [place], [place] [phone] 03/15/2025 Home Care Visit [facility] [address] [place] [phone] Shakira Hand RN 168 [place] [address] 03/22/2025 1:00 AM EDT Home [facility] Visit [facility] [address] [place] [phone] Shakira Hand RN 168 [place] [address] 03/28/2025 9:40 AM EDT Office Visit [facility] [place] [facility] 40 [place] [address] Antione Segura PA-C 40 [place] [address] 03/29/2025 2:00 AM EDT Home [facility] Visit [facility] [address] [place] [phone] Shakira Hand RN 168 [place] [address] 04/05/2025 2:00 AM EDT Home [facility] Visit [facility] [address] [place] [phone] Shakira Hand RN [address] [place] [address] 04/12/2025 1:30 AM EDT Home [facility] Visit [facility] [address] [place] [phone] Shakira Hand RN [address] [place] [address] 04/19/2025 12:30 AM EST Home [facility] Visit [facility] [address] [place] [address] Shakira Hand RN [address] [place] [address] [email or web address] 04/25/2025 Appointment [facility] [address] [place] [address] Shakira Hand RN 168 [place] [address] 06/25/2025 9:30 AM EST Telemedicine [facility] Neurology 22 [place] [address] Jn Cardoza MD 22 [facility], 2nd [place] [address] [email or web address] documented as of this encounter Visit Diagnoses Not on filedocumented in this encounter Additional Health Concerns Assessment Noted Time PHQ-2 Depression Total Score: 0 08/20/19 9:13 AM EST documented as of this encounter Care Teams Vocational Education Teacher Relationship Specialty Start Date End Date Jennifer Duke NP [address] [place] [address] [email or web address] PCP - General Family Medicine 09/08/18 09/14/18 Lang Germain MD [address] [place] [address] [email or web address] PCP - General Internal Medicine 09/15/18 10/02/18 Jennifer Duke NP [address] [place] [address] [email or web address] PCP - General Family Medicine 10/03/18 10/05/18 Lang Germain MD [address] [place] [address] [email or web address] PCP - General Internal Medicine 10/06/18 10/12/18 Jennifer Duke NP [address] [place] [address] PCP - General Family Medicine 10/13/18 11/09/18 Lang Germain MD [address] [place] [address] [email or web address] PCP - General Internal Medicine 11/10/18 11/22/18 Jennifer Duke NP [address] [place] [address] PCP - General Family Medicine 11/23/18 11/30/18 Lang Germain MD [address] [place] [address] [email or web address] PCP - General Internal Medicine 12/01/18 12/13/18 Jennifer Duke NP [address] [place] [address] [email or web address] PCP - General Family Medicine 12/14/18 11/12/19 Lang Germain MD [address] [place] [address] [email or web address] PCP - General Internal Medicine 11/13/19 12/03/19 Jennifer Duke NP [address] [place] [address] [email or web address] PCP - General Family Medicine 12/04/19 01/23/20 Lang Germain MD [address] [place] [address] [email or web address] PCP - General Internal Medicine 01/24/20 01/30/20 Jennifer Duke, [place] [address] [address] [email or web address] PCP - General Family Medicine 01/31/20 06/22/23 Sirisha Huertas, [facility] [address] [place] [address] 201 [place] [address] [email or web address] PCP - General Nurse Practitioner 06/23/23 08/03/24 Liyah Patterson MD [address] [place] [address] [email or web address] PCP - General Family Medicine 08/04/24 10/11/24 Antione Segura PA-C [address] [place] [address] [email or web address] PCP - General Physician Plate Embosser 10/12/24 Charbel Webber MD [address] [place] [address], [address] [place] [address] [email or web address] Historical LMR Provider 04/01/17 0 Alverto Gandara MD [address] [address] [email or web address] Historical LMR Provider 04/01/17 12/03/19 Maikel Rawls MD [address] [address] [email or web address] Historical LMR Provider 04/01/17 12/03/19 Lang Germain MD [address] [place] [address] [email or web address] Insurance Assigned Provider 09/18/23 02/19/24 Jennifer Duke NP [address] [address] [email or web address] Nurse Practitioner Family Medicine 11/13/19 01/30/20 Jn Cardoza MD [address] [address] Neurology 02/03/24 Denys Henriquez MD [address] [place] [address] [place] [address] Pulmonary Disease 02/03/24 Liyah Patterson MD [address] [address] [email or web address] Insurance Assigned Provider 02/19/24 01/20/25 Rhett Cortez MD [address] [place] [address] [email or web address] Insurance Assigned Provider 01/20/25 documented as of this encounter Additional Source Comments The information contained in this document represents components of the legal health record. It is not the complete legal health record.[facility]
--- OUTSIDE RECORDS SUMMARY | 2025-03-06 02:50 | XMS_ITS | Encounter Summary ---
Author Organization [facility] Address [address] [address] Phone Care Team Providers Care Synchro Assembler Name Role Phone Jn Cardoza MD Unavailable Denys Henriquez MD Unavailable [phone] Antione Segura PA-C Primary Care Provider [phone] Rhett Cortez MD Unavailable Encounter Details Date Type Department Care Team (Late st Contact Info) Description 02/09/2025 Home Health Resumption of Care Planning [facility] [address] [place] [phone] Koki Simons RN [address] [place] [address] [email or web address] Social History Tobacco Use Types Packs/Day Years [...] [facility] [address] [place] [phone] Shakira Hand RN [address] [place] [address] [email or web address] 03/15/2025 Home Care Visit [facility] [address] [place] [phone] Shakira Hand RN [address] [place] [address] [email or web address] 03/22/2025 1:00 AM EDT Home Care Visit [facility] [address] [place] [phone] Shakira Hand RN [address] [place] [address] 03/28/2025 9:40 AM EDT Office Visit [facility] [place] [facility] 40 [place] [address] Antione Segura PA-C 40 [place], [place] 1935107 03/29/2025 2:00 AM EDT Home Care Visit [facility] [address] [place] [phone] Shakira Hand RN [address] [place] [address] 04/05/2025 2:00 AM EDT Home [facility] Visit [facility] [address] [place] [phone] Shakira Hand RN [address] [place] [address] 04/12/2025 1:30 AM EDT Home Care Visit [facility] [address] [place] [phone] Shakira Hand RN [address] [place] [address] 04/19/2025 12:30 AM EST Home Care Visit [facility] [address] [place] [phone] Shakira Hand RN [address] [place] [address] 04/25/2025 Appointment [facility] [address] [place] [phone] Shakira Hand RN [address] [place] [address] 06/25/2025 9:30 AM EST Telemedicine [facility] Neurology [address] [place] [address] Jn Cardoza MD [address] [place] [address], 2nd [place] [address] [email or web address] documented as of this encounter Visit Diagnoses Not on filedocumented in this encounter Additional Health Concerns Assessment Noted Time PHQ-9 Depression Total Score: 15 025 9:44 AM EDT PHQ-2 Depression Total Score: 4 02/01/20 25 9:44 AM EDT documented as of this encounter Care Teams Synchro Assembler Relationship Specialty Start Date End Date Antione Segura PA-C [address] [place] [address] [email or web address] PCP - General Physician Wig Sales Consultant 10/12/24 Jn Cardoza MD [address] [place] [address], 2nd [place] [address] [email or web address] Neurology 02/03/24 Denys Henriquez MD [address] [place] [address] [place] [address] Pulmonary Disease 02/03/24 Rhett Cortez MD [address] [place] [address] [email or web address] Insurance Assigned Provider 01/20/25 documented as of this encounter Additional Source Comments The information contained in this document represents components of the legal health record. It is not the complete legal health record.[facility]
--- OUTSIDE RECORDS SUMMARY | 2025-03-06 02:50 | XMS_ITS | Encounter Summary ---
Author Organization [facility] Address [address] [place] [address] Phone Care Team Providers Care Corporate Driver Name Role Phone Lang Germain MD Unavailable Jennifer Duke CORPORATE DRIVER Primary Care Provider Sirisha Huertas DIESEL MECHANIC APPRENTICE Primary Care Provider Jn Cardoza MD Unavailable Denys Henriquez MD Unavailable [phone] Liyah Patterson MD Unavailable Liyah Patterson MD Primary Care Provider [phone] Antione Segura PA-C Primary Care Provider Rhett Cortez MD Unavailable Encounter Details Date Type Department Care Team (Late st Contact Info) Description 02/25/2023 Procedure Pass [facility], [address] [address] Social History Tobacco Use Types Packs/Day Years [...] high school, GED, job training, learning the Kazakh language, technical skills, or developing parenting skills)? [...] Care Visit [facility] [address] [place] [phone] Shakira Hand RN [address] [place] [address] 03/15/2025 Home Care Visit [facility] [address] [place] [phone] Shakira Hand RN [address] [place] [address] 03/22/2025 1:00 AM EDT Home Care Visit [facility] [address] [place] [phone] Shakira Hand RN [address] [place] [address] 03/28/2025 9:40 AM EDT Office Visit [facility] [place] [facility] 40 [place] [address] Antione Segura PA-C 40 [place] [address] [email or web address] 03/29/2025 2:00 AM EDT Home Care Visit [facility] [address] [place] [phone] Shakira Hand RN [address] [place] [address] 04/05/2025 2:00 AM EDT Home Care Visit [facility] [address] [place] [phone] Shakira Hand RN [address] [place] [address] 04/12/2025 1:30 AM EDT Home Care Visit [facility] [address] [place] [phone] Shakira Hand RN [address] [place] [address] 04/19/2025 12:30 AM EST Home Care Visit [facility] [address] [place] [phone] Shakira Hand RN [address] [place] [address] 04/25/2025 Appointment [facility] [address] [place] [phone] Shakira Hand RN [address] [place] [address] 06/25/2025 9:30 AM EST Telemedicine [facility] Neurology [address] [place] [address] Jn Cardoza MD [address] [place] [address] documented as of this encounter Visit Diagnoses Not on filedocumented in this encounter Additional Health Concerns Assessment Noted Time PHQ-9 Depression Total Score: 21 023 12:35 PM EDT PHQ-2 Depression Total Score: 2 02/19/20 23 6:55 PM EDT documented as of this encounter Care Teams Corporate Driver Relationship Specialty Start Date End Date Jennifer Duke, [place] [address] [place] [address] [email or web address] PCP - General Family Medicine 01/31/20 06/22/23 Sirisha Huertas FNP [address] [place] [address] [email or web address] PCP - General Nurse Practitioner 06/23/23 08/03/24 Liyah Patterson MD [address] [place] [address] [email or web address] PCP - General Family Medicine 08/04/24 10/11/24 Antione Segura PA-C [address] [place] [address] [email or web address] PCP - General Physician Pharmaceutical Engineer 10/12/24 Lang Germain MD [address] [place] [address] [email or web address] Insurance Assigned Provider 09/18/23 02/19/24 Jn Cardoza MD [address] [facility], 2nd [place] [address] [email or web address] Neurology 02/03/24 Denys Henriquez MD [address] [place] [address] [place] [address] Pulmonary Disease 02/03/24 Liyah Patterson MD [address] [place] [address] [email or web address] Insurance Assigned Provider 02/19/24 01/20/25 Rhett Cortez MD [address] [place] [address] [email or web address] Insurance Assigned Provider 01/20/25 documented as of this encounter Additional Source Comments The information contained in this document represents components of the legal health record. It is not the complete legal health record.[facility]
--- OUTSIDE RECORDS SUMMARY | 2025-03-06 02:50 | XMS_ITS | Encounter Summary ---
Author Organization [facility] Address [address] [place] [address] Phone Care Team Providers Care Healthcare Social Worker Name Role Phone Lang Germain MD Unavailable [phone] Jennifer Duke STRAW HAT BRIM RAISER OPERATOR Primary Care Provider Sirisha Huertas PHONE BANKER Primary Care Provider Jn Cardoza MD Unavailable Denys Henriquez MD Unavailable Liyah Patterson MD Unavailable Liyah Patterson MD Primary Care Provider [phone] Antione Segura PA-C Primary Care Provider [phone] Rhett Cortez MD Unavailable Encounter Details Date Type Department Care Team (Late st Contact Info) Description 09/01/2021 Procedure Pass [address] [address] Social History Tobacco Use Types Packs/Day Years [...] Visit [facility] [address] [place] [phone] Shakira Hand RN [address] [place] [address] 03/15/2025 Home Care Visit [facility] [address] [place] [phone] Shakira Hand RN [address] [place] [address] 03/22/2025 1:00 AM EDT Home Care Visit [facility] [address] [place] [phone] Shakira Hand RN [address] [place] [address] 03/28/2025 9:40 AM EDT Office Visit [facility] [place] [facility] 40 [place] [address] Antione Segura PA-C 40 [place] [address] 03/29/2025 2:00 AM EDT Home Care Visit [facility] [address] [place] [phone] Shakira Hand RN [address] [place] [address] 04/05/2025 2:00 AM EDT Home Care Visit [facility] [address] [place] [phone] Shakira Hand RN [address] [place] [address] 04/12/2025 1:30 AM EDT Home Care Visit [facility] [address] [place] [phone] Shakira Hand RN [address] [place] [address] 04/19/2025 12:30 AM EST Home Care Visit [facility] [address] [place] [phone] Shakira Hand RN [address] [place] [address] 04/25/2025 Appointment [facility] [address] [place] [phone] Shakira Hand RN [address] [place] [address] 06/25/2025 9:30 AM EST Telemedicine [facility] Neurology [address] [place] [address] Jn Cardoza MD [address] [place] [address], 2nd [place] [address] [email or web address] documented as of this encounter Visit Diagnoses Not on filedocumented in this encounter Additional Health Concerns Assessment Noted Time PHQ-2 Depression Total Score: 0 05/25/20 19 9:02 AM EST documented as of this encounter Care Teams Healthcare Social Worker Relationship Specialty Start Date End Date Jennifer Duke, STRAW HAT BRIM RAISER OPERATOR [address] [place] [address] [email or web address] PCP - General Family Medicine 01/31/20 06/22/23 Sirisha Huertas FNP [address] [place] [address] [email or web address] PCP - General Nurse Practitioner 06/23/23 08/03/24 Liyah Patterson MD [address] [place] [address] [email or web address] PCP - General Family Medicine 08/04/24 10/11/24 Antione Segura PA-C [address] [place] [email or web address] PCP - General Physician Medical Facilities Section Director 10/12/24 Lang Germain MD [address] [place] [address] [email or web address] Insurance Assigned Provider 09/18/23 02/19/24 Jn Cardoza MD [address] [place] [address], 2nd [place] [address] [email or web address] Neurology 02/03/24 Denys Henriquez MD [address] [place] [address] [place] [address] Pulmonary Disease 02/03/24 Liyah Patterson MD [address] [place] [address] [email or web address] Insurance Assigned Provider 02/19/24 01/20/25 Rhett Cortez MD [address] [place] [address] [email or web address] Insurance Assigned Provider 01/20/25 documented as of this encounter Additional Source Comments The information contained in this document represents components of the legal health record. It is not the complete legal health record.[facility]
--- OUTSIDE RECORDS SUMMARY | 2025-03-06 02:50 | XMS_ITS | Encounter Summary ---
Author Organization [facility] Address [address] [address] Phone Care Team Providers Care Trapeze Artist Name Role Phone Jn Cardoza MD Unavailable Denys Henriquez MD Unavailable Liyah Patterson MD Unavailable Antione Segura-C Primary Care Provider Rhett Cortez MD Unavailable Encounter Details Date Type Department Care Team (Late st Contact Info) Description 01/09/2025 Home Health Resumption of Care Planning [facility] [address] [place] [phone] Koki Simons, HUA [address] [place] [address] [email or web address] Social History Tobacco Use Types Packs/Day Years [...] Home Care Visit [facility] [address] [place] [phone] Shakira Hand RN [address] [place] [address] 03/15/2025 Home Care Visit [facility] [address] [place] [address] Shakira Hand RN [address] [place] [address] 03/22/2025 1:00 AM EDT Home Care Visit [facility] [address] [place] [phone] Shakira Hand RN [address] [place] [address] 03/28/2025 9:40 AM EDT Office Visit [facility] [place] [facility] 40 [place] [address] Antione Segura PA-C 40 [place] [address] [email or web address] 03/29/2025 2:00 AM EDT Home Care Visit [facility] [address] [place] [phone] Shakira Hand RN [address] [place] [address] [place] [address] 04/05/2025 2:00 AM EDT Home Care [facility] [address] [place] [phone] Shakira Hand RN [address] [place] [address] 04/12/2025 1:30 AM EDT Home Care Visit [facility] [address] [place] [phone] Shakira Hand RN [address] [place] [address] 04/19/2025 12:30 AM EST Home Care Visit [facility] [address] [place] [phone] Shakira Hand RN [address] [place] [address] 04/25/2025 Appointment [facility] [address] [place] [phone] Shakira Hand RN [address] [place] [address] 06/25/2025 9:30 AM EST Telemedicine [facility] Neurology [address] [place] [address] Jn Cardoza MD 22 [facility], 2nd [place] [address] documented as of this encounter Visit Diagnoses Not on filedocumented in this encounter Additional Health Concerns Assessment Noted Time PHQ-9 Depression Total Score: 20 025 9:08 PM EDT PHQ-2 Depression Total Score: 6 12/28/19 25 9:08 PM EDT documented as of this encounter Care Teams Trapeze Artist Relationship Specialty Start Date End Date Antione Segura PA-C 40 [place] [address] PCP - General Physician Travel Manager 10/12/24 Jn Cardoza MD 22 [facility], 2nd [place] [address] Neurology 02/03/24 Denys Henriquez MD [address] [place] [address] [place] [address] Pulmonary Disease 02/03/24 Liyah Patterson MD [address] [facility] [address]hash. [address] [place] [address] [email or web address] Insurance Assigned Provider 02/19/24 01/20/25 Rhett Cortez MD 40 [place] [address] Insurance Assigned Provider 01/20/25 documented as of this encounter Additional Source Comments The information contained in this document represents components of the legal health record. It is not the complete legal health record.[facility]
--- OUTSIDE RECORDS SUMMARY | 2025-03-06 02:50 | XMS_ITS | Encounter Summary ---
Author Organization [facility] Address [address] [place] [address] Phone Care Team Providers Care Marine Insulator Name Role Phone Charbel Webber MD Unavailable Alverto Gandara MD Unavailable Maikel Rawls MD Unavailable [phone] Lang Germain MD Unavailable Jennifer Duke CONSULAR OFFICER Primary Care Provider Lang Germain MD Primary Care Provider Jennifer Duke CONSULAR OFFICER Unavailable [phone] Jennifer Duke CONSULAR OFFICER Primary Care Provider Lang Germain MD Primary Care Provider Jennifer Duke CONSULAR OFFICER Primary Care Provider Sirisha Huertas MOTOR WINDER Primary Care Provider [phone] Jn Cardoza MD Unavailable Denys Henriquez MD Unavailable [phone] Liyah Patterson MD Unavailable Liyah Patterson MD Primary Care Provider Antione Segura PA-C Primary Care Provider Rhett Cortez MD Unavailable Encounter Details Date Type Department Care Team (Late st Contact Info) Description 03/20/2019 Telephone [facility] [place] Internal Medicine [address] [place] [address] Jennifer Duke, CONSULAR OFFICER 26 [facility] 6 [place] [address] Social History Tobacco Use Types Packs/Day Years [...] 1:00 AM EDT Home Care Visit [facility] [address] [place], [place] [phone] Shakira Hand RN [address] [place] [address] [email or web address] 03/15/2025 Home Care Visit [facility] [address] [place], [place] [phone] Shakira Hand RN [address] [place] [address] [email or web address] 03/22/2025 1:00 AM EDT Home Care Visit [facility] [address] [place], [place] [phone] Shakira Hand RN [address] [place] [address] [email or web address] 03/28/2025 9:40 AM EDT Office [facility] [place] [facility] 40 [place] [address] Antione Segura PA-C 40 [place] [address] [email or web address] 03/29/2025 2:00 AM EDT Home Care Visit [facility] [address] [place] [phone] Shakira Hand RN [address] [place] [address] 04/05/2025 2:00 AM EDT Home Care Visit [facility] [address] [place] [phone] Shakira Hand RN [address] [place] [address] [email or web address] 04/12/2025 1:30 AM EDT Home Care Visit [facility] [address] [place] [phone] Shakira Hand RN [address] [place] [address] [email or web address] 04/19/2025 12:30 AM EST Home Care Visit [facility] [address] [place] [phone] Shakira Hand RN [address] [place] [address] [email or web address] 04/25/2025 Appointment [facility] [address] [place] [phone] Shakira Hand RN [address] [place] [address] 06/25/2025 9:30 AM EST Telemedicine [facility] Neurology [address] [place] [address] Jn Cardoza MD [address] [facility], 2nd [place] [address] [email or web address] documented as of this encounter Visit Diagnoses Not on filedocumented in this encounter Additional Health Concerns Assessment Noted Time PHQ-2 Depression Total Score: 0 11/18/19 19 2:05 PM EDT documented as of this encounter Care Teams Marine Insulator Relationship Specialty Start Date End Date Jennifer Duke CONSULAR OFFICER [address] [place] [address] PCP - General Family Medicine 12/14/18 11/12/19 Lang Germain MD [address] [place] [address] PCP - General Internal Medicine 11/13/19 12/03/19 Jennifer Duke CONSULAR OFFICER [address] [place] [address] PCP - General Family Medicine 12/04/19 01/23/20 Lang Germain MD 40 [place] [address] PCP - General Internal Medicine 01/24/20 01/30/20 Jennifer Duke CONSULAR OFFICER [address] [place] [address] PCP - General Family Medicine 01/31/20 06/22/23 Sirisha Huertas FNP [address] [address] [email or web address] PCP - General Nurse Practitioner 06/23/23 08/03/24 Liyah Patterson MD [address] [address] [email or web address] PCP - General Family Medicine 08/04/24 10/11/24 Antione Segura PA-C [address] [place] [address] [email or web address] PCP - General Physician Blow Molder 10/12/24 Charbel Webber MD 22 [facility], [address] [place] [address] [email or web address] Historical LMR Provider 04/01/17 0 Alverto Gandara MD [address] [place] [address], 2nd [place] [address] Historical LMR Provider 04/01/17 12/03/19 Maikel Rawls MD [address] [place] [address] [email or web address] Historical LMR Provider 04/01/17 12/03/19 Lang Germain MD [address] [place] [address] Insurance Assigned Provider 09/18/23 02/19/24 Jennifer Duke NP 40 [place] [address] Nurse Practitioner Family Medicine 11/13/19 01/30/20 Jn Cardoza MD 22 [facility], 2nd [place] [address] [email or web address] Neurology 02/03/24 Denys Henriquez MD [address] [place] [address] [place] [address] Pulmonary Disease 02/03/24 Liyah Patterson MD 15 [facility] [address]. [address] [place] [address] [email or web address] Insurance Assigned Provider 02/19/24 01/20/25 Rhett Cortez MD 40 [place] [address] Insurance Assigned Provider 01/20/25 documented as of this encounter Additional Source Comments The information contained in this document represents components of the legal health record. It is not the complete legal health record.[facility]
--- OUTSIDE RECORDS SUMMARY | 2025-03-06 02:50 | XMS_ITS | Encounter Summary ---
Author Organization [facility] Address [address] [place] [address] Phone Care Team Providers Care Payable Manager Name Role Phone Jn Cardoza MD Unavailable Denys Henriquez MD Unavailable Antione Segura PA-C Primary Care Provider Rhett Cortez MD Unavailable Encounter Details Date Type Department Care Team (Late st Contact Info) Description 02/14/2025 Orders Only [facility] Internal Medicine [address] [place] [address] Provider, MD Omar [address] [place] [address] Social History Tobacco Use Types Packs/Day [...] high school, GED, job training, learning the Tanzanian language, technical skills, or developing parenting skills)? [...] Care Visit [facility] [address] [place] [phone] Shakira Hand RN [address] [place] [address] [email or web address] 03/15/2025 Home Care Visit [facility] [address] [place] [phone] Shakira Hand RN [address] [place] [address] [email or web address] 03/22/2025 1:00 AM EDT Home Care Visit [facility] [address] [place] [phone] Shakira Hand RN [address] [place] [address] [email or web address] 03/28/2025 9:40 AM EDT Office Visit [facility] Internal Medicine 40 [place] [address] Antione Segura PA-C 40 [place] [address] 03/29/2025 2:00 AM EDT Home Care Visit [facility] [address] [place] [phone] Shakira Hand RN [address] [place] [address] [email or web address] 04/05/2025 2:00 AM EDT Home Care Visit [facility] [address] [place] [phone] Shakira Hand RN [address] [place] [address] 04/12/2025 1:30 AM EDT Home Care Visit [facility] [address] [place] [phone] Shakira Hand RN [address] [place] [address] 04/19/2025 12:30 AM EST Home Care Visit [facility] [address] [place] [phone] Shakira Hand RN [address] [place] [address] 04/25/2025 Appointment [facility] [address] [place] [phone] Shakira Hand RN [address] [place] [address] 06/25/2025 9:30 AM EST Telemedicine [facility] Neurology [address] [place] [address] Jn Cardoza MD [address] [place] [address], 2nd [place] [address] [email or web address] documented as of this encounter Procedures [...] documented as of this encounter Care Teams Payable Manager Relationship Specialty Start Date End Date Antione Segura PA-C 40 [place] [address] PCP - General Physician Geospatial Imagery Intelligence Analyst 10/12/24 Jn Cardoza MD 22 [facility], 2nd [place] [address] Neurology 02/03/24 Denys Henriquez MD [address] [place] [address] [place] [address] Pulmonary Disease 02/03/24 Rhett Cortez MD 40 [place] [address] [email or web address] Insurance Assigned Provider 01/20/25 documented as of this encounter Additional Source Comments The information contained in this document represents components of the legal health record. It is not the complete legal health record.[facility]
--- OUTSIDE RECORDS SUMMARY | 2025-03-06 02:51 | XMS_ITS | Encounter Summary ---
Author Organization [facility] Address [address] [place] [phone] Phone Care Team Providers Care Operating Room Scheduler Name Role Phone Jn Cardoza MD Unavailable Denys Henriquez MD Unavailable Antione Segura PA-C Primary Care Provider [phone] Rhett Cortez MD Unavailable Encounter Details Date Type Department Care Team (Late st Contact Info) Description 03/01/2025 Refill [facility] Neurology [address] [place] [address] [phone] Vania Matamoros MA [address] [place] [address] [email or web address] Social History Tobacco [...] visit: 10/06/2024 Jn Cardoza MD - Neurology [facility] [place] > Requested f/u: Return in about 4 months (around 02/05/2025). Upcoming visit: 06/25/2025 Jn Cardoza MD - Neurology [facility] [place] ACTIONS TAKEN BY Vania Matamoros MA - [...] Care Visit [facility] [address] [place] [phone] Shakira Hand RN [address] [place] [phone] 03/15/2025 Home Care Visit [facility] [address] [place] [address] Shakira Hand RN [address] [place] [phone] 03/22/2025 1:00 AM EDT Home Care Visit [facility] [address] [place] [address] Shakira Hand RN [address] [place] [phone] 03/28/2025 9:40 AM EDT Office Visit [facility] [address] [place] [address] Antione Segura PA-C [address] [place], [place] [phone] 03/29/2025 2:00 AM EDT Home Care Visit [facility] [address] [place] [phone] Shakira Hand RN [address] [place] [address] 04/05/2025 2:00 AM EDT Home Care Visit [facility] [address] [place] [phone] Shakira Hand RN [address] [place] [address] 04/12/2025 1:30 AM EDT Home Care Visit [facility] [address] [place] [phone] Shakira Hand RN [address] [place] [address] 04/19/2025 12:30 AM EST Home Care Visit [facility] [address] [place] [phone] Shakira Hand, HUA [address] [place] [address] 04/25/2025 Appointment [facility] [address] [place] [phone] Shakira Hand, HUA [address] [place] [address] 06/25/2025 9:30 AM EST Telemedicine [facility] Neurology [address] [place] [address] Jn Cardoza MD [address] [place] [address], [address] [place] [address] [email or web address] documented as of this encounter Visit Diagnoses Diagnosis Trigeminal neuralgia of left side of face Atypical facial pain Atypical face pain documented in this encounter Additional Health Concerns Assessment Noted Time PHQ-9 Depression Total Score: 15 025 9:44 AM EDT PHQ-2 Depression Total Score: 4 02/01/20 9:44 AM EDT documented as of this encounter Care Teams Operating Room Scheduler Relationship Specialty Start Date End Date Antione Segura PA-C [address] [place] [address] [email or web address] PCP - General Physician Customs Collector 10/12/24 Jn Cardoza MD [address] [place] [address], [address] [place] [address] Neurology 02/03/24 Denys Henriquez MD [address] [place] [address] [place] [address] Pulmonary Disease 02/03/24 Rhett Cortez MD [address] [place] [address] [email or web address] Insurance Assigned Provider 01/20/25 documented as of this encounter Additional Source Comments The information contained in this document represents components of the legal health record. It is not the complete legal health record.[facility]
--- OUTSIDE RECORDS SUMMARY | 2025-03-06 02:51 | XMS_ITS | Encounter Summary ---
Author Organization [facility] Address [address] [address] Phone Care Team Providers Care Diet Aide Name Role Phone Jn Cardoza MD Unavailable Denys Henriquez MD Unavailable Antione Segura PA-C Primary Care Provider Rhett Cortez MD Unavailable Encounter Details Date Type Department Care Team (Late st Contact Info) Description 03/05/2025 Episode Documentatio n Update [facility] [address] [place] [phone] Emma Shah [address] [place] [address] [email or web address] Social History Tobacco Use Types Packs/Day Years [...] Visit [facility] [address] [place] [phone] Shakira Hand RN [address] [place] [address] 03/15/2025 [facility] Visit [facility] [address] [place] [phone] Shakira Hand RN [address] [place] [phone] 03/22/2025 1:00 AM EDT Home Care Visit [facility] [address] [place] [phone] Shakira Hand RN [address] [place] [address] 03/28/2025 9:40 AM EDT Office Visit [facility] [address] [place] [address] Antione Segura PA-C [address] [place] [address] 03/29/2025 2:00 AM EDT Home Care Visit [facility] [address] [place] [phone] Shakira Hand RN [address] [place] [address] 04/05/2025 2:00 AM EDT Home Care Visit [facility] [address] [place] [phone] Shakira Hand RN [address] [place] [address] 04/12/2025 1:30 AM EDT Home Care Visit [facility] [address] [place] [phone] Shakira Hand RN [address] [place] [address] 04/19/2025 12:30 AM EST Home Care Visit [facility] [address] [place] [phone] Shakira Hand RN [address] [place] [phone] 04/25/2025 Appointment [facility] [address] [place] [phone] Shakira Hand RN [address] [place] [phone] 06/25/2025 9:30 AM EST Telemedicine [facility] Neurology [address] [place] [address] Jn Cardoza MD [address] [place] [address], [address] [place] [address] documented as of this encounter Visit Diagnoses Not on filedocumented in this encounter Additional Health Concerns Assessment Noted Time PHQ-9 Depression Total Score: 15 025 9:44 AM EDT PHQ-2 Depression Total Score: 4 02/01/20 25 9:44 AM EDT documented as of this encounter Care Teams Diet Aide Relationship Specialty Start Date End Date Antione Segura PA-C [address] [place] [phone] [email or web address] PCP - General Physician Tech Brazer Tester 10/12/24 Jn Cardoza MD [address] [place] [address], 2nd [place] [address] [email or web address] Neurology 02/03/24 Denys Henriquez MD [address] [place] [address] [place] [address] Pulmonary Disease 02/03/24 Rhett Cortez MD [address] [place] [phone] [email or web address] Insurance Assigned Provider 01/20/25 documented as of this encounter Additional Source Comments The information contained in this document represents components of the legal health record. It is not the complete legal health record.[facility]
--- OUTSIDE RECORDS SUMMARY | 2025-03-06 02:51 | XMS_ITS | Encounter Summary ---
Author Organization [facility] Address [address] [address] Phone Care Team Providers Care Chip Machine Operator Name Role Phone Jn Cardoza MD Unavailable Denys Henriquez MD Unavailable nAtione Segura PA-C Primary Care Provider Rhett Cortez MD Unavailable Encounter Details Date Type Department Care Team (Late st Contact Info) Description 03/04/2025 Episode Documentatio n Update [facility] [address] [place] [phone] Emma Shah [address] [place] [address] [email or web address] Social History [...] high school, GED, job training, learning the [place] language, technical skills, or developing parenting skills)? [...] Care Visit [facility] [address] [place] [phone] Shakira Hand RN [address] [place] [address] 03/15/2025 Home Care Visit [facility] [address] [place] [phone] Shakira Hand RN [address] [place] [phone] 03/22/2025 1:00 AM EDT Home Care Visit [facility] [address] [place] [phone] Shakira Hand RN [address] [place] [address] 03/28/2025 9:40 AM EDT Office Visit [facility] [address] [place] [address] Antione Segura PA-C 40 [place] [address] 03/29/2025 2:00 AM EDT Home Care Visit [facility] [address] [place] [phone] Shakira Hand RN [address] [place] [address] 04/05/2025 2:00 AM EDT Home Care Visit [facility] [address] [place] [phone] Shakira Hand RN [address] [place] [address] 04/12/2025 1:30 AM EDT Home Care Visit [facility] [address] [place] [phone] Shakira Hand RN [address] [place] [address] 04/19/2025 12:30 AM EST Home Care Visit [facility] [address] [place] [phone] Shakira Hand RN [address] [place] [phone] 04/25/2025 Appointment [facility] [address] [place] [phone] Shakira Hand RN [address] [place] [phone] 06/25/2025 9:30 AM EST Telemedicine [facility] Neurology [address] [place] [address] Jn Cardoza MD [address] [place] [address], [address] [place] [address] documented as of this encounter Visit Diagnoses Not on filedocumented in this encounter Additional Health Concerns Assessment Noted Time PHQ-9 Depression Total Score: 15 025 9:44 AM EDT PHQ-2 Depression Total Score: 4 02/01/20 25 9:44 AM EDT documented as of this encounter Care Teams Chip Machine Operator Relationship Specialty Start Date End Date Antione Segura PA-C [address] [place] [phone] [email or web address] PCP - General Physician [employer] Programmer 10/12/24 Jn Cardoza MD [address] [place] [address], 2[address] [place] [address] [email or web address] Neurology 02/03/24 Denys Henriquez MD [address] [place] [address] [place] [address] Pulmonary Disease 02/03/24 Rhett Cortez MD [address] [place] [phone] [email or web address] Insurance Assigned Provider 01/20/25 documented as of this encounter Additional Source Comments The information contained in this document represents components of the legal health record. It is not the complete legal health record.[facility]
--- OUTSIDE RECORDS SUMMARY | 2025-03-06 02:51 | XMS_ITS | Clinical Summary ---
Author Organization [facility] Address [address] [place] [address] Phone Care Team Providers Care Temperature Control Inspector Name Role Phone Jn Cardoza MD Unavailable Denys Henriquez MD Unavailable Antione Segura PA-C Primary Care Provider [phone] Rhett Cortez MD Unavailable Allergies Active Allergy [...] day 60 capsule 11 03/17/20 24 Active prazosin (MINIPRESS) 2 MG capsule Take 1 [...] Take 10 mg by mouth daily. TAPER: [id number] 10MG X4DAYS 5MG X4DAYS 02/13/20 25 Active oxyCODONE 5 MG immediate release tabletIndications:S acroiliitis, not elsewhere classified Take 1 tablet (5 mg total) by mouth every 12 (twelve) hours as needed for pain (specific location in comments). 28 tablet 02/29/20 25 025 Active OXcarbazepine (TRILEPTAL) 300 MG IMMEDIATE release tabletIndications:T rigeminal neuralgia of left side of face,Atypical facial pain Take 1 tablet (300 mg total) by mouth 2 (two) times a day. 60 tablet 03/01/20 25 Active OXcarbazepine (TRILEPTAL) 300 MG tabletIndications:T rigeminal neuralgia of left side of face,Atypical facial pain [The details of the medication are not available because there are pending changes by a home health clinician.] 90 tablet 07/06/19 25 025 Disconti nued(Reo rder) predniSONE (DELTASONE) 10 MG tablet Take 10 [...] O2 therapy as prescribed. Referral placed to [facility] Pulmonology. 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 She follows with Dr. Thurman at [facility]. Patient follows regularly with him. [...] Does have outpatient stress test scheduled with [facility] Cardiology. Discussed that results would indicate future management and whether that may include cardiac catheterization. I do not see record of this within her discharge summary from [facility] Assessment & Plan (12/22/2023 9:33 AM EDT): [...] does have an upcoming appointment with her retirement actuary next week. Of note she also saw another retirement actuary Remy Bautista out at [facility] pulmonary and has a follow-up with them [...] follows closely with Dr. Henriquez out of [facility]. She is on Daliresp, DuoNebs [...] a scheduled appointment on 12/18 with her retirement actuary. She is hoping to get this moved [...] follows closely with Dr. Henriquez out of [facility]. She is on Daliresp, DuoNebs [...] Continue prednisone as prescribed upon discharge from [facility]. Discussed concern for coronary requirement of nebulizer treatments and albuterol rescue inhaler. We also reviewed the importance of vaping cessation, she remains precontemplative. She does have follow-up appointment scheduled with Dr. Henriquez and has resumed VNA services. Assessment & Plan (11/29/2023 5:28 PM EDT): Recent admission for COPD exacerbation with acute hypoxemic respiratory failure. Current retirement actuary is Dr. Henriquez at [facility]. She is interested in establishing care with [facility] some of her specialists are within the [facility] system for better continuity of care. She [...] should be seen and followed by a tech ed teacher which she does already have appointment scheduled [...] how this is not appropriate given prescribed Columbus for pain and risk of SCUTCHER TENDER depression. She is aware of these risks and agrees to continuing medication as prescribed. She understands that she can contact the office should she be interested in discussion of medication regimen. Assessment & Plan (11/01/2023 10:20 AM EDT): PHQ9 Flowsheet Row Office Visit from 10/28/2023 in [facility] Primary Care PHQ-9 Total Score 24 [...] 3 times daily and she was on Columbus however during her last hospital stay this [...] study and speech evaluation when inpatient at [place]. Discussed referral to gastroenterology discussed potential of [...] EST): Continue follow-up with Dr. 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 We discussed concern for SCUTCHER TENDER depression and need to minimize use especially [...] Encounters Date Type Department Care Team Description 03/05/2025 Episode Documentation Update [facility] [address] [place] [phone] Emma Shah 03/04/2025 Episode Documentation Update [facility] [address] [place] [address] Emma Shah 03/02/2025 Episode Documentation Update [facility] [address] [place] [phone] Emma Shah 03/02/2025 Telephone [facility] [address] [place] [address] Antione Segura PA-C [facility] referral request 03/01/2025 11:00 AM EDT Home Care Visit [facility] [address] [place] [phone] Rich Mariscal LPN HOME VISIT 03/01/2025 Refill [facility] [address] [place] [address] Vania Matamoros MA 02/27/2025 Refill [facility] [address] [place] [address] Antione Segura PA-C Medication Refill 02/26/2025 Episode Documentation Update [facility] [address] [place] [phone] Margy Rubalcava 02/23/2025 11:30 AM EDT Home Care Visit [facility] [address] [place] [address] Shakira Hand RN SN OASIS RECERTIFICATION/FUP 02/23/2025 Plan of Care Documentation [facility] [address] [place] [address] 02/21/2025 Episode Documentation Update [facility] [address] [place] [address] Margy Rubalcava 02/20/2025 Orders Only [facility] [address], [place] [phone] Provider, MD Omar 02/19/2025 10:30 AM EDT Home Care Visit [facility] [address] [place] [address] Shakira Hand RN SN PRN HOME VISIT 02/19/2025 9:00 AM EDT Home Care Visit [facility] [address] [place] [address] Krysta Charles PESTICIDE USE MEDICAL COORDINATOR HOME VISIT 02/16/2025 Home Care Visit [facility] [address] [place] [address] Laquita Mchugh, PT TELEPHONE ENCOUNTER 02/16/2025 Telephone [facility] [address], [place] [phone] Antione Segura PA-C Referral ([facility] Pulmonology) 02/16/2025 Home Care Visit [facility] [address] [place] [address] Krysta Charles PESTICIDE USE MEDICAL COORDINATOR HOME VISIT 02/15/2025 9:00 AM EDT Office Visit [facility] [address], [place] [phone] Antione Segura PA-C Pulmonary emphysema, unspecified emphysema type (Primary Dx) 02/15/2025 Home Care Visit [facility] [address] [place] [address] Laquita Mchugh, PT TELEPHONE ENCOUNTER 02/14/2025 1:30 PM EDT Home Care Visit [facility] [address] [place], [place] [phone] Shakiar Hand RN SN HOME VISIT 02/14/2025 Home Care Visit [facility] [address] [place], [place] [phone] Laquita Mchugh, PT TELEPHONE ENCOUNTER 02/14/2025 Home Care Visit [facility] [address] [place], [place] [phone] Laquita Mchugh, PT TELEPHONE ENCOUNTER 02/14/2025 Orders Only [facility] [address] [place] [address] ProviderOmar MD 02/14/2025 Documentation [facility] [address] [place] [address] Antione Segura PA-C 02/14/2025 Home Care Visit [facility] [address] [place] [address] Krysta Charles PESTICIDE USE MEDICAL COORDINATOR HOME VISIT 02/13/[address] [phone] Antione Segura PA-C Appointment (Tcm+discharged 02/09/25 ) 02/12/2025 12:30 PM EDT Home Care Visit [facility] [address] [place], [place] [phone] Shakira Hand, HUA SN OASIS RESUMPTION OF CARE (VERONIKA) 02/11/2025 Home Care Visit [facility] [address] [place], [place] [phone] Maritza Calix, HUA CASE COMMUNICATION 02/09/2025 Home Health Resumption of Care Planning [facility] [address] [place], [place] [phone] Koki Simons RN 02/08/2025 1:00 AM EDT Home Care Visit [facility] [address] [place] [address] Shakira Hand RN SN OASIS TRANSFER 02/05/2025 Home Care Visit [facility] [address] [place] [address] Krysta Charles CASE COMMUNICATION 02/01/2025 3:30 PM EDT Home Care Visit [facility] [address] [place] [address] Yane Lanza, PT PT HOME VISIT 02/01/2025 4:00 AM EDT Home Care Visit [facility] [address] [place] [address] Krysta Charles PESTICIDE USE MEDICAL COORDINATOR HOME VISIT 01/31/2025 1:30 PM EDT Home Care Visit [facility] [address] [place] [address] Shakira Hand RN SN HOME VISIT 01/29/2025 3:30 PM EDT Home Care Visit [facility] [address] [place] [address] Yane Lanza, PT PT HOME VISIT 01/29/2025 8:15 AM EDT Home Care Visit [facility] [address] [place] [address] Krysta Charles PESTICIDE USE MEDICAL COORDINATOR HOME VISIT 01/29/2025 Refill [facility] [address] [place] [address] Antione Segura PA-C Medication Refill 01/29/2025 Telephone [facility] [address] [place], [place] [phone] Antione Segura PA-C Request For Order(s) 01/26/2025 Home Care Visit [facility] [address] [place] [phone] Karlene Berumen, RN TELEPHONE ENCOUNTER 01/25/2025 2:30 PM EDT Home Care Visit [facility] [address] [place] [phone] Yane Lanza, PT PT EVALUATION 01/25/2025 4:00 AM EDT Home Care Visit [facility] [address] [place], [place] [phone] Krysta Charles PESTICIDE USE MEDICAL COORDINATOR HOME VISIT 01/25/2025 1:00 AM EDT Home Care Visit [facility] [address] [place] [address] Karlene Berumen, HUA SN HOME VISIT 01/24/2025 Telephone [facility] [address] [place] [address] Antione Segura PA-C PFT 01/24/2025 Telephone [facility] [address] [place] [address] Eliana Prabhakar, ANGELINA Breast Cancer Screening 01/23/2025 9:00 AM EDT Home Care Visit [facility] [address] [place] [address] Rich Mariscal LPN HOME VISIT 01/23/2025 4:30 AM EDT Home Care Visit [facility] [address] [place] [address] Krysta Charles PESTICIDE USE MEDICAL COORDINATOR HOME VISIT 01/22/2025 Home Care Visit [facility] [address] [place], [place] [phone] Yane Lanza, PT TELEPHONE ENCOUNTER 01/22/2025 Refill [facility] [address] [place] [address] Antione Segura PA-C Medication Refill 01/18/2025 11:00 AM EDT Home Care Visit [facility] [address] [place] [phone] Shakira Hand, HUA SN HOME VISIT 01/18/2025 9:15 AM EDT Home Care Visit [facility] [address] [place] [phone] Krysta Charles PESTICIDE USE MEDICAL COORDINATOR HOME VISIT 01/18/2025 Telephone [facility] [address] [place] [address] Antione Segura PA-C Medication Question (Gabapentin) 01/18/2025 Episode Documentation Update [facility] [address] [place] [phone] Mayra Burton 01/17/2025 2:30 PM EDT Home Care Visit [facility] [address] [place] [phone] Krysta Charles PESTICIDE USE MEDICAL COORDINATOR HOME VISIT 01/17/2025 Telephone [facility] [address] [place] [address] Elida Lindquist, HUA VNA Orders 01/15/2025 Episode Documentation Update [facility] [address] [place] [phone] Mayra Burton 01/14/2025 Home Care Visit [facility] [address] [place] [phone] Raya Howard, PT TELEPHONE ENCOUNTER 01/12/2025 Refill [facility] [address] [place] [address] Antione Segura PA-C Medication Refill 01/12/2025 Telephone [facility] [address] [place] [address] Antione Segura PA-C VNA Orders 01/11/2025 10:00 AM EDT Home Care Visit [facility] [address] [place] [phone] Shakira Hand, RN SN HOME VISIT 01/11/2025 Episode Documentation Update [facility] [address] [place] [phone] Mayra Burton 01/10/2025 12:30 PM EDT Home Care Visit [facility] [address] [place] [address] Shakira Hand, RN SN OASIS RESUMPTION OF CARE (VERONIKA) 01/10/2025 Telephone [facility] [address] [place] [address] Antione Segura PA-C Referral (Pulmonology referral update to urgent) 01/09/2025 3:00 PM EDT Home Care Visit [facility] [address] [place] [address] Shakira Hand, HUA SN OASIS TRANSFER 01/09/2025 Home Health Resumption of Care Planning [facility] [address] [place] [address] Koki Simons RN 01/04/2025 Orders Only [facility] [address] [place] [address] Omar Cooley MD 01/04/2025 Telephone [facility] [address] [place] [address] Antione Segura PA-C Shortness of Breath 01/04/2025 Telephone [facility] [address] [place] [phone] Brittnee Vigil MD 01/02/2025 1:00 PM EDT Home Care Visit [facility] [address] [facility] [place] [phone] Shakira Hand RN SN HOME VISIT 01/02/2025 Telephone [facility] [address] [place], [place] [phone] Eliana Prabhakar CNP Follow-up 01/01/2025 [facility] [address] [place] [phone] Claudia Charles, PT PT EVALUATION 12/29/2024 12:00 PM EDT Home Care Visit [facility] [address] [place] [phone] Shakira Hand RN SN HOME VISIT 12/28/2024 3:00 PM EDT Office Visit [facility] [address] [place] [address] Eliana Prabhakar CNP Acute on chronic hypoxic respiratory failure (Primary Dx); Persistent cough; Anxiety; Trigeminal neuralgia; 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; Occipital neuralgia of left side; Acute congestive heart failure, unspecified heart failure type; Benign essential hypertension; Irritable bowel syndrome with both constipation and diarrhea; Chronic low back pain, unspecified back pain laterality, unspecified whether sciatica present 12/28/2024 Telephone [facility] [address] [place] [address] Antione Segura PA-C VNA Orders 12/28/2024 Plan of Care Documentation [facility] [address] [place] [phone] 12/27/2024 3:00 PM EDT Home Care Visit [facility] [address] [place] [phone] Shakira Hand, HUA SN OASIS START OF CARE (SOC) 12/26/2024 Refill [facility] [address] [place] [address] Antione Segura PA-C Medication Refill 12/26/2024 Documentation [facility] [address] [place], [place] [phone] Antione Segura PA-C 12/25/2024 Home Care Visit [facility] [address] [place] [address] Lelo Roa RN NON ADMIT HOME HEALTH VISIT 12/25/2024 Orders Only [facility] [address] [place] [phone] Homehealth, Interface MD Lenora 12/23/2024 Home Care Visit [facility] [address] [place] [address] Maritza Calix RN CASE COMMUNICATION 12/22/2024 Orders Only [facility] [address] [place], [place] [phone] Omar Cooley MD 12/20/2024 Telephone [facility] [address] [place], [place] [phone] Antione Segura PA-C TCM Visit (Unable to schedule) 12/18/2024 Orders Only [facility] [address] [place] [phone] Homehealth, Interface MD Lenora 12/18/2024 Home Care Visit [facility] [address] [place] [address] Shakira Hand, HUA SN NON OASIS DISCHARGE NON VISIT/TELEPHONE 12/14/2024 5:35 AM EDT - 12/14/2024 11:59 PM EDT Hospital Encounter [facility] [address] [place] [address] Nba Roberson MD Discharge Disposition: Home or Self Care 12/11/2024 Home Care Visit [facility] [address] [place] [address] Lelo Roa RN CASE COMMUNICATION 12/11/2024 Refill [facility] [address] [place] [address] Siirsha Huertas, AGA Medication Refill 12/09/2024 Home Care Visit [facility] [address] [place] [phone] Maritza Calix, HUA CASE COMMUNICATION 12/08/2024 Home Care Visit [facility] [address] [place] [phone] Lelo Roa, RN TELEPHONE ENCOUNTER 12/06/2024 [facility] [address] [phone] Diana Torres RN from Last 3 Months Immunizations Immunization Administration [...] high school, GED, job training, learning the [place] language, technical skills, or developing parenting skills)? [...] 1:00 AM EDT Home Care Visit [facility] [address] [place] [address] Shakira Hand, HUA [address] [place] [address] [email or web address] 03/15/2025 Home Care Visit [facility] [address] [place], [place] [phone] Shakira Hand RN [address] [place] [address] [email or web address] 03/22/2025 1:00 AM EDT Home [facility] Visit [facility] [address] [place] [phone] Shakira Hand RN [address] [place] [address] [email or web address] 03/28/2025 9:40 AM EDT Office Visit [facility] [address] [place] [address] Antione Segura PA-C [address] [place] [address] [email or web address] 03/29/2025 2:00 AM EDT Home Care Visit [facility] [address] [place] [phone] Shakira Hand RN [address] [place] [phone] [email or web address] 04/05/2025 2:00 AM EDT Home Care Visit [facility] [address] [place] [phone] Shakira Hand RN [address] [place] [address] [email or web address] 04/12/2025 1:30 AM EDT Home Care Visit [facility] [address] [place] [address] Shakira Hand RN [address] [place] [address] [email or web address] 04/19/2025 12:30 AM EST Home Care Visit [facility] [address] [place] [phone] Shakira Hand RN [address] [place] [address] [email or web address] 04/25/2025 Appointment [facility] [address] [place] [phone] Shakira Hand RN [address] [place] [address] 06/25/2025 9:30 AM EST Telemedicine [facility] [address] [place] [address] Jn Cardoza MD [address] [facility], [address] [place] [address] [email or web address] Health Maintenance Due Date Last Done Comments [...] REPEAT PHQ 03/03/2025 01/31/2025, 01/31/2025 BLOOD PRESSURE 08/29/2025 03/01/2025 DEPRESSION SCREENING 01/31/2026 01/31/2025, 02/01/20 25 [...] Trigeminal neuralgia of left side of face CT CHEST LUNG CANCER SCREENING ANNUAL Routine [...] of2 resultswithin the time period is included. [facility] Creatinine, serum - External 0.66(A) 0.8 - 1.3 mg/dL Result [facility] LAB BLOOD ORDERABLES Mariya l Result * Outside ALT Level (02/05/2025) Only the most recent of2 resultswithin the time period is included. [facility] ALT - External 15 5 - 30 U/L Result [facility] LAB BLOOD ORDERABLES Mariya l Result * Outside XR??Chest Report Only (01/04/2025 1:21 PM EDT) Result [facility] Provider IMG XR CHEST Final Res ult * Outside Imaging Report Only (12/21/2024 1:01 PM EDT) Result [facility] Provider IMG XR CHEST Final Res ult * Outside Imaging Report Only (12/21/2024 10:25 AM EDT) Result [facility] Provider IMG XR CHEST Final Res ult * Outside Imaging Report Only (12/21/2024 8:15 AM EDT) Result [facility] Provider IMG XR CHEST Final Res ult * Outside Imaging Report Only (12/21/2024 8:12 AM EDT) Result [facility] Provider IMG XR CHEST Final Res ult * (ABNORMAL) Comprehensive metabolic panel (12/14/2024 4:45 AM EDT) [facility] SODIUM 140 133 - 146 mmol/L [...] ORDERABLES Final Resul t Performing Organization Address City/State/[facility] Co de Phone Number [facility] [address] [place] [address] * (ABNORMAL) CBC and differential [...] MD LAB BLOOD ORDERABLES Final Resul t [address] [address] * CT CHEST LUNG CANCER SCREENING ANNUAL [...] can be found at:[email or web address] Lang Germain MD [facility] CHEST Final Result * (ABNORMAL) Lipid [...] RISK RATIO 4.4 3.3 - 4.4 C [facility] Blood 08/22/2021 8:13 AM EST 08/22/2021 8:17 AM EST us Jeninfer Duke NP LAB BLOOD ORDERABLES Final Resu lt [address] [address] * Pap Smear (02/22/2020 12:00 AM EDT) 02/22/2020 02/23/2020 8:2 1 AM EDT Narrative SEE NARRATIVE - 02/27/2020 11:20 AM EDT [address] [address] Emergency Services Dispatcher: Perla Luis MD EVALUATION ANALYST Cytology Report FINAL DIAGNOSIS A. PAP SMEAR [...] 52, 56, 58, 59, 66, 68) by [employer] On[employer] HR-HPV analysis. Clinical correlation is advised. This HPV test was performed at [facility], [address] [place] [address]. This test has been FDA approved for [facility] cervical cytology specimens. The accuracy and precision of this test for all other specimen sources has been verified in the Cytopathology Laboratory of the [facility] and has not been cleared or approved by the U.S. Food and Drug Administration. Clinical correlation is advised. CLINICAL HISTORY Date of Last Menstrual Period: 2009 Menstrual History: Post Menopausal Other Clinical Conditions: Screening Pap SPECIMEN SOURCE A: PAP SMEAR (SUREPATH) CE Patient Name: CONSTANTINOMAYRA. : 1965 (Age: 55) Sex: F Institution: [facility] Location: [facility] Date of Collection: 02/22/2020 Date of Reported: 02/27/2020 11:20 Results to: Jennifer Duke MSN, BSN us Jennifer Duke HOIST [employer]CH[employer]IC CYTOLOGY ORDERABLES Final Resul t SEE NARRATIVE * Hepatitis C antibody, qualitative (05/25/2019 10:24 AM EST) HCV NON-REACTIV E NON-REACTI VE [facility] Blood 05/25/2019 10:2 4 AM EST 05/25/2019 10:26 AM EST us Jennifer Duke NP LAB BLOOD ORDERABLES Final Resu lt [address] [address] * COLONOSCOPY FOR RESULT ENTRY ONLY (12/04/2013) Colonoscopy repeat 10 yrs us Historical Provider HEALTH MAINTENANCE Final Result from Last 3 Months or Most Recently Relevant to Health Maintenance Insurance [employer] [place] [employer] [place] [employer] [place] Mar[place] [employer] [place] [employer] [place] [place] [employer] [place] [place] [employer] [place] [employer] [place] Advance Directives For more information, please contact: [phone] (9AM - 5PM [facility], Wednesday-Wednesday) Documents on File Type Date Recorded Patient Assistant Corporate Secretary Expl anation MOLST 02/15/2025 MOLST * Full Code (Latest Code Status on File) Date Activated Date Inactivated Comments 02/15/2025 9:52 AM Question Answer Comments Code Status Confirmed With: Patient Care Teams Temperature Control Inspector Relationship Specialty Start Date End Date Antione Segura PA-C [address] [place] [address] [email or web address] PCP - General Physician Byproducts Pump Operator 10/12/24 Jn Cardoza MD [address] [facility], 2nd [place] [address] Neurology 02/03/24 Denys Henriquez MD [address] [place] [address] [place] [address] Pulmonary Disease 02/03/24 Rhett Cortez MD [address] [place] [address] [email or web address] Insurance Assigned Provider 01/20/25 Additional Source Comments The information contained in this document represents components of the legal health record. It is not the complete legal health record.[facility]
--- OUTSIDE RECORDS SUMMARY | 2025-03-06 02:51 | XMS_ITS | Encounter Summary ---
Author Organization [facility] Address [address] [address] Phone Care Team Providers Care Lawn Mower Operator Name Role Phone Jn Cardoza MD Unavailable Denys Henriquez MD Unavailable Antione Segura PA-C Primary Care Provider Rhett Cortez MD Unavailable Encounter Details Date Type Department Care Team (Late st Contact Info) Description 03/02/2025 Episode Documentatio n Update [facility] [address] [place] [phone] Emma Shah [address] [place] [address] [email or web address] [...] high school, GED, job training, learning the Irish language, technical skills, or developing parenting skills)? [...] Care Visit [facility] [address] [place] [phone] Shakira Hand RN [address] [place] [address] 03/15/2025 Home Care Visit [facility] [address] [place] [phone] Shakira Hand RN [address] [place] [address] 03/22/2025 1:00 AM EDT Home Care Visit [facility] [address] [place] [phone] Shakira Hand RN [address] [place] [address] 03/28/2025 9:40 AM EDT Office Visit [facility] [place] [facility] [address] [place] [address] Antione Segura PA-C [address] [place] [address] 03/29/2025 2:00 AM EDT Home Care Visit [facility] [address] [place] [phone] Shakira Hand RN [address] [place] [address] 04/05/2025 2:00 AM EDT Home Care Visit [facility] [address] [place] [phone] Shakira Hand RN [address] [place] [address] 04/12/2025 1:30 AM EDT Home Care Visit [facility] [address] [place] [phone] Shakira Hand RN [address] [place] [address] 04/19/2025 12:30 AM EST Home Care Visit [facility] [address] [place] [phone] Shakira Hand RN [address] [place] [address] 04/25/2025 Appointment [facility] [address] [place] [phone] Shakira Hand RN [address] [place] [address] 06/25/2025 9:30 AM EST Telemedicine [facility] Neurology [address] [place] [address] Jn Cardoza MD [address] [place] [address], [address] [place] [address] documented as of this encounter Visit Diagnoses Not on filedocumented in this encounter Additional Health Concerns Assessment Noted Time PHQ-9 Depression Total Score: 15 025 9:44 AM EDT PHQ-2 Depression Total Score: 4 02/01/20 25 9:44 AM EDT documented as of this encounter Care Teams Lawn Mower Operator Relationship Specialty Start Date End Date Antione Segura PA-C [address] [place] [email or web address] PCP - General Physician Reimbursement Specialist 10/12/24 Jn Cardoza MD [address] [place] [address], 2nd [place] [address] [email or web address] Neurology 02/03/24 Denys Henriquez MD [address] [place] [address] [place] [address] Pulmonary Disease 02/03/24 Rhett Cortez MD [address] [place] [address] [email or web address] Insurance Assigned Provider 01/20/25 documented as of this encounter Additional Source Comments The information contained in this document represents components of the legal health record. It is not the complete legal health record.[facility]
--- OUTSIDE RECORDS SUMMARY | 2025-03-06 02:51 | XMS_ITS | Encounter Summary ---
Author Organization [facility] Address [address] [place] [address] Phone Care Team Providers Care Abrading Machine Tender Name Role Phone Charbel Webber MD Unavailable Alverto Gandara MD Unavailable Maikel Rawls MD Unavailable [phone] Lang Germain MD Primary Care Provider Jennifer Duke SOLAR SALES MANAGER Primary Care Provider Lang Germain MD Primary Care Provider Jennifer Duke SOLAR SALES MANAGER Primary Care Provider Lang Germain MD Primary Care Provider Jennifer Duke SOLAR SALES MANAGER Primary Care Provider Lang Germain MD Unavailable Lang Germain MD Primary Care Provider Jennifer Duke SOLAR SALES MANAGER Primary Care Provider Lang Germain MD Primary Care Provider Jennifer Duke SOLAR SALES MANAGER Primary Care Provider Lang Germain MD Primary Care Provider [phone] Jennifer Duke SOLAR SALES MANAGER Primary Care Provider [phone] Lang Germain MD Primary Care Provider [phone] Jennifer Duke SOLAR SALES MANAGER Unavailable [phone] Jennifer Duke SOLAR SALES MANAGER Primary Care Provider [phone] Lang Germain MD Primary Care Provider [phone] Jennifer Duke SOLAR SALES MANAGER Primary Care Provider [phone] Aleksandar Sirishafrancisca Kendall FLOATING DERRICK OPERATOR Primary Care Provider [phone] Jn Cardoza MD Unavailable Denys Henriquez MD Unavailable [phone] Liyah Patterson MD Unavailable Liyah Patterson MD Primary Care Provider [phone] Antione Segura PA-C Primary Care Provider [phone] Rhett Cortez MD Unavailable Reason for Referral * MRI/CAT Scan - Closed Specialty Diagnoses / Procedures Referred By Contac t Referred To Contact Procedures CT Head Outside (No Interpretation) System, Provider Not In, PhD [address] [address] Referral ID Status Reason Start Date Expiration Date Visits Re quested Visits Authorized [id number] Closed 06/20/2018 06/20/2019 1 1 * MRI/CAT Scan - Closed Specialty Diagnoses / Procedures Referred By Contac t Referred To Contact Procedures CT Face Outside (No Interpretation) System, Provider Not In, PhD [address] [address] Referral ID Status Reason Start Date Expiration Date Visits Re quested Visits Authorized [id number] Closed 06/20/2018 06/20/2019 1 1 Encounter Details Date Type Department Care Team (Late st Contact Info) Description 06/20/2018 Ancillary Orders [facility],Outside Imaging [address] [place] [address] System, Provider Not In, [place] [address] Social History Tobacco Use Types Packs/Day Years [...] Care Visit [facility] [address] [place] [phone] Shakira Hand RN [address] [place] [address] 03/15/2025 Home Care Visit [facility] [address] [place] [address] Shakira Hand RN [address] [place] [address] 03/22/2025 1:00 AM EDT Home Care Visit [facility] [address] [place] [address] Shakira Hand RN [address] [place] [address] 03/28/2025 9:40 AM EDT Office Visit [facility] [place] [facility] 40 [place] [address] Antione Segura PA-C [address] [place], [place] [phone] [email or web address] 03/29/2025 2:00 AM EDT Home Care Visit [facility] [address] [place] [phone] Shakira Hand, HUA [address] [place] [address] 04/05/2025 2:00 AM EDT Home Care Visit [facility] [address] [place] [phone] Shakira Hand RN [address] [place] [address] 04/12/2025 1:30 AM EDT Home Care Visit [facility] [address] [place] [phone] Shakira Hand RN [address] [place] [address] 04/19/2025 12:30 AM EST Home Care Visit [facility] [address] [place] [phone] Shakira Hand, HUA [address] [place] [address] 04/25/2025 Appointment [facility] [address] [place] [phone] Shakira Hand RN [address] [place] [address] 06/25/2025 9:30 AM EST Telemedicine [facility] Neurology [address] [place] [address] Jn Cardoza MD 22 [facility], 2nd [place] [address] documented as of this encounter Results * [...] documented as of this encounter Care Teams Abrading Machine Tender Relationship Specialty Start Date End Date Lang Germain MD [address] [place] [address] PCP - General Internal Medicine 06/13/18 06/30/18 Jennfier Duke SOLAR SALES MANAGER [address] [place] [address] PCP - General Family Medicine 07/01/18 08/02/18 Lang Germain MD [address] [place] [address] PCP - General Internal Medicine 08/03/18 09/07/18 Jennifer Duke NP [address] [place] [address] PCP - General Family Medicine 09/08/18 09/14/18 Lang Germain MD [address] [place] [address] [email or web address] PCP - General Internal Medicine 09/15/18 10/02/18 Jennifer Duke NP [address] [place] [address] [email or web address] PCP - General Family Medicine 10/03/18 10/05/18 Lang Germain MD [address] [place] [address] [email or web address] PCP - General Internal Medicine 10/06/18 10/12/18 Jennifer Duke NP [address] [place] [address] [email or web address] PCP - General Family Medicine 10/13/18 11/09/18 Lang Germain MD [address] [place] [address] [email or web address] PCP - General Internal Medicine 11/10/18 11/22/18 Jennifer Duke SOLAR SALES MANAGER [address] [place] [address] [email or web address] PCP - General Family Medicine 11/23/18 11/30/18 Lang Germain MD [address] [place] [address] [email or web address] PCP - General Internal Medicine 12/01/18 12/13/18 Jennifer Duke, SOLAR SALES MANAGER [address] [place] [address] [email or web address] PCP - General Family Medicine 12/14/18 11/12/19 Lang Germain MD [address] [place] [address] [email or web address] PCP - General Internal Medicine 11/13/19 12/03/19 Jennifer Duke NP [address] [place] [address] [email or web address] PCP - General Family Medicine 12/04/19 01/23/20 Lang Germain MD [address] [place] [address] [email or web address] PCP - General Internal Medicine 01/24/20 01/30/20 Jennifer Duke SOLAR SALES MANAGER [address] [place] [address] [email or web address] PCP - General Family Medicine 01/31/20 06/22/23 Sirisha Huertas FNP [address] [address] [email or web address] PCP - General Nurse Practitioner 06/23/23 08/03/24 Liyah Patterson MD [address] [phone] [email or web address] PCP - General Family Medicine 08/04/24 10/11/24 Antione Segura PA-C [address] [place] [address] [email or web address] PCP - General Physician Medical Assistant Internal Medicine 10/12/24 Charbel Webber MD [address] [place] [address], [facility] [address] [place] [address] [email or web address] Historical LMR Provider 04/01/17 0 Alverto Gandara MD [address] [place] [address] [email or web address] Historical LMR Provider 04/01/17 12/03/19 Maikel Rawls MD [address] [place] [address] [email or web address] Historical LMR Provider 04/01/17 12/03/19 Lang Germain MD [address] [place] [address] [email or web address] Insurance Assigned Provider 09/18/23 02/19/24 Jennifer Duke NP [address] [place] [address] [email or web address] Nurse Practitioner Family Medicine 11/13/19 01/30/20 Jn Cardoza MD [address] [place] [address] [email or web address] Neurology 02/03/24 Denys Henriquez MD [address] [place] [address] [place] [address] Pulmonary Disease 02/03/24 Liyah Patterson MD [address] [place] [address] [email or web address] Insurance Assigned Provider 02/19/24 01/20/25 Rhett Cortez MD [address] [place] [address] [email or web address] Insurance Assigned Provider 01/20/25 documented as of this encounter Additional Source Comments The information contained in this document represents components of the legal health record. It is not the complete legal health record.[facility]
--- OUTSIDE RECORDS SUMMARY | 2025-03-06 02:51 | XMS_ITS | Encounter Summary ---
Author Organization [facility] Address [address] [place] [address] Phone Care Team Providers Care Inspector Packager Name Role Phone Jn Cardoza MD Unavailable Denys Henriquez MD Unavailable [phone] Antione Segura PA-C Primary Care Provider [phone] Rhett Cortez MD Unavailable Reason for Referral * Consultation (Within 3 days (urgent)) - Authorized Specialty Diagnoses / Procedures Referred By Dary smith Referred To Contact Antione Segura PA-C [address] [place] [address] Phone: tel: fax: [email or web address] Norah Worrell, [place] [address] [place] [address] Phone: tel: Referral ID Status Reason Start Date Expiration Date V isits Requested Visits Authorized [id number] Authorized 03/02/2025 03/02/2026 1 1 Reason for Visit * Reason Onset Date Comments [facility] referral request 03/02/2025 Encounter Details Date Type Department Care Team (Late st Contact Info) Description 03/02/2025 Telephone [facility] [place] [facility] [address] [place] [address] Antione Segura PA-C [address] [place] [address] [email or web address] [facility] [place] [facility] referral request Social History Tobacco Use Types Packs/Day Years [...] high school, GED, job training, learning the Macanese language, technical skills, or developing parenting skills)? [...] your housing situation today? I have marianna hdz 01/31/2025 How many times have you move [...] as of this encounter Progress Notes * Nadia Sena - 03/02/2025 3:29 PM EDT Referral, OV Note, Demographics faxed to [facility] Cardiology [phone]/confirmation received * Nadia Sena - 03/02/2025 11:51 AM EDT Referral Request 1. Name of the office where the patient has been seen/requests to be seen: [facility] Cardiovascular Speciality Office 2. Reason for referral/specialist appointment and the diagnosis code: I50.30 Diastolic Heart Failure 2A. Have you seen this provider before for this same problem? 2B. If this is a new problem, is your PCP aware of your symptoms? 3. Date of appointment(s):02-26-25 4. Name of specialist provider: Norah Worrell MODEL AND MOLD MAKER 5. NPI number to enter for referral authorization (enter n/a if not available): [id number] 6. Number of visits requested for referral: 6 7. Fax number of specialist office to send referral authorization: [phone] Referral Pended documented in this encounter Plan of Treatment Upcoming Encounters Date Type Department Care Team (Late st Contact Info) Description 03/08/2025 1:00 AM EDT Home Care Visit [facility] [address] [place] [phone] Shakira Hand RN [address] [place] [address] 03/15/2025 Home Care Visit [facility] [address] [place] [address] Shakira Hand RN [address] [place] [address] 03/22/2025 1:00 AM EDT Home Care Visit [facility] [address] [place] [address] Shakira Hand RN [address] [place] [address] 03/28/2025 9:40 AM EDT Office Visit [facility] [place] [facility] [address] [place] [address] Antione Segura PA-C [address] [place] [address] [email or web address] 03/29/2025 2:00 AM EDT Home Care Visit [facility] [address] [place] [address] Shakira Hand RN [address] [place] [address] [place] [address] 04/05/2025 2:00 AM EDT Home Care Visit [facility] [address] [place] [phone] Shakira Hand RN [address] [place] [address] 04/12/2025 1:30 AM EDT Home Care Visit [facility] [address] [place] [phone] Shakira Hand RN [address] [place] [address] 04/19/2025 12:30 AM EST Home Care Visit [facility] [address] [place] [phone] Shakira Hand RN [address] [place] [address] 04/25/2025 Appointment [facility] [address] [place] [phone] Shakira Hand RN [address] [place] [address] 06/25/2025 9:30 AM EST Telemedicine [facility] Neurology [address] [place] [address] Jn Cardoza MD 22 [facility], 2nd [place] [address] Scheduled Referrals Name Type Priority Associated Diagnoses Order Schedule Ambulatory referral to External Cardiology Outpatient Referral Routine Ordered: 03/02/2025 documented as of this encounter Visit Diagnoses Not on filedocumented in this encounter Additional Health Concerns Assessment Noted Time PHQ-9 Depression Total Score: 15 025 9:44 AM EDT PHQ-2 Depression Total Score: 4 02/01/20 9:44 AM EDT documented as of this encounter Care Teams Inspector Packager Relationship Specialty Start Date End Date Antione Segura PA-C [address] [place] [address] [email or web address] PCP - General Physician Real Estate Listing Consultant 10/12/24 Jn Cardoza MD [address] [place] [address], 2nd [place] [address] [email or web address] Neurology 02/03/24 Denys Henriquez MD [address] [place] [address] [place] [address] Pulmonary Disease 02/03/24 Rhett Cortez MD [address] [place] [address] [email or web address] Insurance Assigned Provider 01/20/25 documented as of this encounter Additional Source Comments The information contained in this document represents components of the legal health record. It is not the complete legal health record.[facility]
[2025-03-06] MEDS: Albuterol Sulfate 2.5 MG, Albuterol Sulfate (0.083%) 2.5 MG 5 MG INHALE (03:01)
--- NOTE | 2025-03-06 05:09 | ED.SOB ---
HPI - SOB/Dyspnea General Chief Complaint: Dyspnea Stated Complaint: COPD/ SOB Time Seen by Provider: 03/06/25 02:05 Source: patient, EMS and old records reviewed Mode of arrival: EMS Limitations: no limitations History of Present Illness ED Provider: Dr. Natasha Giordano HPI Narrative: 60-year-old female with extensive pulmonary history including oxygen-dependent COPD presenting with shortness of breath by EMS. EMS reports they are called to the home and found the patient with increased work of breathing, lying almost flat in bed with an oxygen level of 83% on 2 L on CPAP. She was given a dose of Solu-Medrol, 2 DuoNebs via CPAP EN route and had significantly improved by the time she arrived to the emergency department. Patient reports that she was just discharged from this hospital 2 days ago. In that time, she did forget to take a dose of her prednisone but had taken to previous doses of it. Admits that she went outside today because it was ?very beautiful outside? but unfortunately the neighbors were doing some landscaping and she feels that she may have inhaled some pollen in the air. Describes worsening shortness of breath throughout the day. No changes in her chronic cough. No reported fever. Denies chest pain. Related Data Home Medications ?Medication ?Instructions ?Recorded ?Confirmed atorvastatin 80 mg tablet 80 mg PO DAILY@199903/04/23 03/01/25 freuwbvcwf-eoqbyqvmcnxhf-idgwqfqp 1 tab PO DAILY MRX1 PRN Migraine 03/04/23 03/01/25 50 mg-325 mg-40 mg tablet Headache duloxetine 60 mg capsule,delayed 60 mg PO BID@0600,199903/04/23 03/01/25 release gabapentin 300 mg capsule 1,200 mg PO TID@0600,1200,199903/04/23 03/01/25 hyoscyamine sulfate 0.125 mg tablet 0.25 mg PO Q6H PRN Abdominal 03/04/23 03/01/25 Discomfort Oxygen Home Use 04/16/23 02/26/25 prazosin 2 mg capsule 2 mg PO DAILY@199904/16/23 03/01/25 albuterol sulfate 90 mcg/actuation 2 puff inhalation Q4H PRN 01/31/24 03/01/25 aerosol inhaler Shortness Of Breath Or Wheezing aspirin 81 mg tablet,delayed 81 mg PO DAILY@199905/22/24 03/01/25 release calcium 600 mg (as 1 tab PO DAILY@199906/20/24 03/01/25 carbonate)-vitamin D3 5 mcg (200 unit) tablet baclofen 20 mg tablet 20 mg PO TID@0600,1199,199910/29/24 03/01/25 aripiprazole 5 mg tablet (Abilify) 5 mg PO DAILY@59912/01/24 03/01/25 oxcarbazepine 300 mg tablet 300 mg PO BID@599,199912/21/24 03/01/25 lorazepam 0.5 mg tablet 0.5 mg PO BEDTIME@1999 MODERATE 01/04/25 03/01/25 Anxiety polyethylene glycol 3350 17 17 g PO DAILY PRN Constipation 01/04/25 03/01/25 gram/dose oral powder (Miralax) budesonide 160 mcg-glycopyr 9 2 inh inhalation BID@0600,179902/05/25 03/01/25 mcg-formot 4.8 mcg/actuation HFA inhaler (Breztri Aerosphere) lorazepam 0.5 mg tablet 0.5 mg PO DAILY PRN Anxiety 02/05/25 03/01/25 roflumilast 500 mcg tablet 500 mcg PO DAILY@59902/05/25 03/01/25 (Daliresp) valsartan 40 mg tablet 40 mg PO DAILY@59902/05/25 03/01/25 verapamil 120 mg tablet 120 mg PO BID@599,199902/05/25 03/01/25 nystatin 100,000 unit/gram topical 1 appl topical TID-QID 03/01/25 03/01/25 powder omeprazole 20 mg capsule,delayed 20 mg PO DAILY@59903/01/25 03/01/25 release prednisone 5 mg tablet 5 mg PO DAILY@59903/01/25 03/01/25 Held on 03/02/25. Instructions: Resume on 03/06/25. after completion of Prednisone 40mg X 5 days and f/u with Previous Rx's ?Medication ?Instructions ?Recorded nebulizer and compressor #1 ea 12/16/23 ipratropium 0.5 mg-albuterol 3 mg 3 ml inhalation Q4H PRN for 03/02/24 (2.5 mg base)/3 mL nebulization dyspnea #180 mL soln oxycodone 5 mg tablet 5 mg PO BID PRN Severe Pain (Scale 12/13/24 Score 7-10) #10 tabs prednisone 20 mg tablet 40 mg (2 x 20 mg) PO DAILY 5 days 03/02/25 #10 tabs Allergies Allergy/AdvReac Type Severity Reaction Status Date / Time Iodinated Contrast Media (IV Allergy Intermediate HIVES Verified 03/06/25 02:05 CONTRAST) latex (LATEX) Allergy Unknown RASH Verified 03/06/25 02:05 adhesive tape Allergy Rash Verified 03/06/25 02:05 morphine (MORPHINE) AdvReac Unknown VOMITING Verified 03/06/25 02:05 Review of Systems Review of Systems: As per HPI, full review of systems performed and negative but for the above mentioned pertinent positives and negatives. [facility] Past Medical History Medical History Morbid obesity Pulmonary nodules Diastolic heart failure Leukocytosis Chronic lung disease Chronic lung disease Hypoxia Panic disorder Hypertension Chronic hypercapnic respiratory failure Aortic stenosis Obesity (BMI 30-39.9) Asthma Acute exacerbation of chronic obstructive pulmonary disease Chronic lung disease Hypogammaglobulinemia Smoker JUANITO (obstructive sleep apnea) Allergies Elevated troponin COPD (chronic obstructive pulmonary disease) Trigeminal neuralgia Mixed hyperlipidemia Peripheral neuropathy Tobacco use disorder Mood disorder Surgical History History of esophagogastroduodenoscopy (EGD) History of colonoscopy History of lumbar discectomy History of tubal ligation History of excision of mass History of shoulder surgery Social History Social History Household Members: Spouse Household Members Other:: dog Housing: Condominium Do you presently have visiting nurse or other home services: Yes Alcohol intake: current Alcohol intake frequency: holidays/special occasions only Alcohol type: hard liquor Comment: rings appropriately Patient Tobacco Use Status: Former Tobacco user Tobacco use type: Cigarette Cigarette Packs Per Day: 4 Cigarettes Per Day: 80.0 Years Smoked: 40 Smoked in Last 30 Days: No e-Cigarette/Vaping Use: Never Used Second Hand Smoke Exposure: No Use of substances other than those prescribed or required for medical reasons: Yes Substance Use Type: Marijuana Substance Use Type Other:: edibles Substance Use Frequency: Daily Last Used Substance: Hours (ago) Advance Directives: Yes Advance Directives on File: Yes Advance Directives Date on File: 03/09/23 Patient : No service: No Physical Exam Exam: Exam: GENERAL: Ill-appearing, chronically ill-appearing, severe respiratory distress. SKIN: Normal skin color for ethnicity, warm, dry, no rashes noted. HEENT: Normocephalic, atraumatic, no stridor, EOMI. NECK: Soft, supple, full ROM, midline structures nontender, no step-offs, no deformities, no lymphadenopathy. CHEST: Heart regular tachycardia, barrel chest, symmetric chest rise and fall. PULMONARY: Diffuse, faint, wheezes throughout, tachypnea, diminished air movement bilaterally R>L, severe respiratory distress. ABDOMINAL: Soft,nontender, quiet bowel sounds in all quadrants. : Deferred. MUSCULOSKELETAL: Normal tone, full range of motion, no deformities, no peripheral edema. NEURO: Alert and oriented to person, CN II through XII intact, no focal neurologic deficits. PSYCHIATRIC: Anxious affect, appropriate demeanor. Vital Signs: Vital Signs: Last Vital Signs Temp 98.6 F 03/06/25 02:04 Pulse 77 03/06/25 03:01 Resp 22 H 03/06/25 03:01 BP 142/70 H 03/06/25 02:30 Pulse Ox 98 03/06/25 02:30 O2 Del Method CPAP 03/06/25 02:04 BMI result Body Mass Index 41.2 Medications Administered Discontinued Medications Generic Name Dose Route Start Last Admin Trade Name Jasonq PRN Reason Stop Dose Admin Albuterol Sulfate 2.5 mg/ 5 mg 03/06/25 02:49 03/06/25 03:01 Albuterol Sulfate 2.5 mg INHALE 03/06/25 02:50 5 mg ONCE ONE Administration Albuterol Sulfate 2.5 mg/ 0 mg 03/06/25 02:13 03/06/25 02:16 Albuterol/Ipratropium 3 ml INHALE 03/06/25 02:14 1 dose ONCE ONE Administration Magnesium Sulfate 2 gm in 50 mls @ 150 mls/hr 03/06/25 01:58 03/06/25 02:33 Magnesium Sulfate/H2o IV 03/06/25 02:17 Infused ONCE ONE Infusion Medical Decision Making Medical Decision Making [facility] Narrative: Patient presents in respiratory distress. Differential diagnosis includes flash pulmonary edema, COPD exacerbation, pneumothorax, pneumonia, ACS, pulmonary embolism, metabolic acidosis, among many others. The serious nature of the patient's symptoms makes this presentation complex, with potential for significant, worsening morbidity and mortality without immediate treatment/intervention. 5:13 AM 03/06/2025 (Dr. Natasha Giordano D.O.) patient feeling significantly improved after multiple bronchodilator treatments here in the emergency department. She also received a dose of magnesium. She is refusing care at this time and would like to go home to continue outpatient treatment. We had an extensive discussion regarding importance of avoiding triggers for her COPD as well as strict return precautions to the emergency department. She understands and agrees with plan for discharge. Discharged home in stable condition. Differential Diagnosis Differential Diagnoses: The differential diagnosis associated with the presentation includes (As above) Admission/Observation Consideration of admission/observation: Escalation of care including admission/observation considered Lab Data [facility] Lab Attestation statement: I reviewed the patient's lab results. 03/06/25 02:04 03/06/25 02:04 Labs: Lab Results 03/06/25 03/06/25 03/06/25 Range/Units 02:04 02:06 02:09 WBC 12.3 H (4.8-10.8) X10*3/uL RBC 3.86 L (4.20-5.50) X10*6/uL Hgb 12.1 (12.0-16.0) g/dl Hct 37.8 (37.0-47.0) % MCV 97.9 (80.0-98.0) fL MCH 31.3 (27.0-33.0) pg MCHC 32.0 (31.0-35.0) g/dl RDW 13.9 (11.0-16.0) % Plt Count 379 (160-400) X10*3/uL MPV 9.2 L (9.4-12.3) fL Immature Gran % (Auto) 0.4 (0.0-0.4) % Neut % (Auto) 66.4 (45-73) % Lymph % (Auto) 21.4 (20-40) % [place] % (Auto) 10.6 (2-11) % Eos % (Auto) 1.0 (0-4) % Baso % (Auto) 0.2 (0-2) % Lymph # (Auto) 2.6 (1.2-4.9) X10*3/uL [place]on # (Auto) 1.3 H (0.1-1.2) X10*3/uL Eos # (Auto) 0.1 (0.0-0.4) X10*3/uL Baso # (Auto) 0.0 (0.0-0.2) X10*3/uL Abs Immat Gran (auto) 0.05 H (0.00-0.03) X10*3/uL Absolute Neuts (auto) 8.2 (2.0-8.3) x10*3/uL Absolute Nucleated RBC 0.000 (0.0-0.012) X10*3/uL Nucleated RBC % (auto) 0.0 (0.0-0.2) /100WBC VBG pH (7.32-7.43) VBG pCO2 mmHg VBG pO2 mmHg VBG HCO3 (22-26) mmol/L VBG O2 Saturation % VBG Base Excess mmol/L Sodium 145 (135-145) mmol/L Potassium 3.8 (3.3-5.1) mmol/L Chloride 103 (96-108) mmol/L Carbon Dioxide 34 H (22-29) mmol/L Anion Gap 12 (12-20) BUN 12 (9-16) mg/dL Creatinine 0.81 (0.5-1.4) mg/dL Estim Creat Clear Calc 77.6 Estimated GFR > 60 Random Glucose 127 H (60-115) mg/dL Calcium 9.0 (8.4-10.2) mg/dL Magnesium 2.2 (1.6-2.6) mg/dL Total Bilirubin 0.2 (0.0-1.0) mg/dL AST 24 (5-31) U/L ALT 19 (0-31) U/L Alkaline Phosphatase 59 (39-117) U/L Troponin I High Sens 45.2 H D (<3.5-17.0) ng/L NT-Pro-B Natriuret Pep 140.9 (<300) pg/mL Total Protein 6.8 (6.5-8.0) g/dL Albumin 3.9 (3.5-5.0) g/dL COVID-19 (SONAL) Negative (Negative) COVID-19 Clin Com See Note Influenza Type A (DERREK) Negative (Negative) Influenza Type B (DERREK) Negative (Negative) Influenza A & B Note See Note 03/06/25 Range/Units 02:10 WBC (4.8-10.8) X10*3/uL RBC (4.20-5.50) X10*6/uL Hgb (12.0-16.0) g/dl Hct (37.0-47.0) % MCV (80.0-98.0) fL MCH (27.0-33.0) pg MCHC (31.0-35.0) g/dl RDW (11.0-16.0) % Plt Count (160-400) X10*3/uL MPV (9.4-12.3) fL Immature Gran % (Auto) (0.0-0.4) % Neut % (Auto) (45-73) % Lymph % (Auto) (20-40) % Corson % (Auto) (2-11) % Eos % (Auto) (0-4) % Baso % (Auto) (0-2) % Lymph # (Auto) (1.2-4.9) X10*3/uL [place] # (Auto) (0.1-1.2) X10*3/uL Eos # (Auto) (0.0-0.4) X10*3/uL Baso # (Auto) (0.0-0.2) X10*3/uL Abs Immat Gran (auto) (0.00-0.03) X10*3/uL Absolute Neuts (auto) (2.0-8.3) x10*3/uL Absolute Nucleated RBC (0.0-0.012) X10*3/uL Nucleated RBC % (auto) (0.0-0.2) /100WBC VBG pH 7.45 H (7.32-7.43) VBG pCO2 53 mmHg VBG pO2 93 mmHg VBG HCO3 37 H (22-26) mmol/L VBG O2 Saturation 99.0 % VBG Base Excess 11.7 mmol/L Sodium (135-145) mmol/L Potassium (3.3-5.1) mmol/L Chloride (96-108) mmol/L Carbon Dioxide (22-29) mmol/L Anion Gap (12-20) BUN (9-16) mg/dL Creatinine (0.5-1.4) mg/dL Estim Creat Clear Calc Estimated GFR Random Glucose (60-115) mg/dL Calcium (8.4-10.2) mg/dL Magnesium (1.6-2.6) mg/dL Total Bilirubin (0.0-1.0) mg/dL AST (5-31) U/L ALT (0-31) U/L Alkaline Phosphatase (39-117) U/L Troponin I High Sens (<3.5-17.0) ng/L NT-Pro-B Natriuret Pep (<300) pg/mL Total Protein (6.5-8.0) g/dL Albumin (3.5-5.0) g/dL COVID-19 (SONAL) (Negative) COVID-19 Clin Com Influenza Type A (DERREK) (Negative) Influenza Type B (DERREK) (Negative) Influenza A & B Note Independent Interpretation I performed an independent interpretation of an: EKG Interpretation: My independent interpretation of the ECG reveals normal sinus rhythm with rate of 83, normal axis, normal intervals, no ST elevations or depressions to suggest ischemic changes, relatively unchanged from previous on 03/01/2025. Independent Historian Clinical information obtained from an independent historian. History obtained from or confirmed by: EMS External Record Review External record reviewed: Inpatient record Prescription Management I considered prescription management with: Other (Steroids) Chronic Conditions Patient?s care impacted by: Other (COPD) Discharge Plan Discharge Clinical Impression: Acute hypoxemic respiratory failure, COPD with acute exacerbation Patient Disposition: Home, Self-Care Instructions: Bronchospasm (ED) Additional Instructions: Return to the emergency room with any new or worsening symptoms including: Shortness of breath, fevers greater than 100?, changes in your sputum production, any new symptom that concerns you. Try to avoid triggers that will worsen your breathing including pollens from the outdoors, smoke, chemical irritants, and pet dander. Use your steroids as prescribed. 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 Prescriptions: No Action ipratropium-albuterol 0.5 mg-3 mg(2.5 mg base)/3 mL solution for nebulization 3 ml inhalation Q4H PRN (Reason: for dyspnea) Qty: 180 11RF baclofen 20 mg tablet 20 mg PO TID@0600,1200,1999 aripiprazole [Abilify] 5 mg tablet 5 mg PO DAILY@0600 oxcarbazepine 300 mg tablet 300 mg PO BID@599,1999 atorvastatin 80 mg tablet 80 mg PO DAILY@1999 newswgxrys-meiatbwspindb-hbwa 50-325-40 mg tablet 1 tab PO DAILY MRX1 PRN (Reason: Migraine Headache) hyoscyamine sulfate 0.125 mg tablet 0.25 mg PO Q6H PRN (Reason: Abdominal Discomfort) gabapentin 300 mg capsule 1,200 mg PO TID@0600,1199,1999 duloxetine 60 mg capsule,delayed release(DR/EC) 60 mg PO BID@00,1999 (DME) nebulizer and compressor Device See Rx Instructions .Route Qty: 1 0RF Rx Instructions: As directed albuterol sulfate 90 mcg/actuation HFA aerosol inhaler 2 puff inhalation Q4H PRN (Reason: Shortness Of Breath Or Wheezing) aspirin 81 mg tablet,delayed release (DR/EC) 81 mg PO DAILY@1999 oxycodone 5 mg tablet 5 mg PO BID PRN (Reason: Severe Pain (Scale Score 7-10)) Qty: 10 0RF polyethylene glycol 3350 [Miralax] 17 gram/dose Powder 17 g PO DAILY PRN (Reason: Constipation) lorazepam 0.5 mg tablet 0.5 mg PO BEDTIME@1999 Breztri Aerosphere 160-9-4.8 mcg/actuation HFA aerosol inhaler 2 inh inhalation BID@0600,1800 lorazepam 0.5 mg tablet 0.5 mg PO DAILY PRN (Reason: Anxiety) verapamil 120 mg tablet 120 mg PO BID@0600,1999 valsartan 40 mg tablet 40 mg PO DAILY@0600 Protocol: Hold for SBP< HOLD for SBP < : 90 roflumilast [Daliresp] 500 mcg tablet 500 mcg PO DAILY@0600 prednisone 5 mg tablet 5 mg PO DAILY@0600 Rx Instructions: at the end of tapering schedule started on 02/09/25... 5 mg daily for 4 days 03/01/25 is the second day of it omeprazole 20 mg capsule,delayed release(DR/EC) 20 mg PO DAILY@0600 nystatin 100,000 unit/gram powder 1 appl topical TID-QID prednisone 20 mg tablet 40 mg PO DAILY 5 Days Qty: 10 0RF Rx Instructions: resume home prednisone after completion of this dosage calcium carbonate-vitamin D3 600 mg-5 mcg (200 unit) tablet 1 tab PO DAILY@2000 prazosin 2 mg capsule 2 mg PO DAILY@2000 (DME) Oxygen Home Use Kit See Rx Instructions .Route Rx Instructions: As directed Print Language: Latvian
== END 2025-03-06 05:25 | disposition home or self-care (01) ==
PROVIDERS: Emergency Provider Emergency Medicine; PCP Physician Assistant Surgical
DX: R06.02 Shortness of breath (principal); J44.9 Chronic obstructive pulmonary disease, unspecified; Z99.81 Dependence on supplemental oxygen; Z79.899 Other long term (current) drug therapy; Z11.52 Encounter for screening for COVID-19
CPT/HCPCS: 36415; 80053; 82803; 83735; 83880; 84484; 85025; 87502; 87635; 93005; 94640; 96365; 99284; 99285; J3475

== ENCOUNTER → 2025-03-06 01:50 | Outpatient (BNV) | payer BC, SELFPAY | PROVIDERS: Emergency Provider Emergency Medicine; PCP Physician Assistant Surgical; Visit Provider Internal Medicine Cardiovascular Disease | DX: R06.02 Shortness of breath (principal) | CPT/HCPCS: 93010 ==

== ENCOUNTER 2025-03-13 06:18 | Inpatient (IN) | payer BC, SELFPAY ==
[2025-03-13] VITALS (18 sets, daily range): BP systolic 131–155; BP diastolic 64–101; PULSE 81–122; RESP 16–26; TEMP 36.2–37.1; O2SAT 91–98; BMI 41.0
--- NOTE | ~2025-03-13 | XR_ITS ---
EXAMINATION: XR CHEST 1 VIEW HISTORY: SOB COMPARISON: Comparison is made with the prior examination dated 03/01/2025. FINDINGS: A single AP portable view of the chest performed at 7:34 AM is submitted. Again seen is scarring in the right lower lung zone. The lungs are otherwise clear. There is no pleural effusion, pneumothorax, or pulmonary vascular congestion. The heart is normal in size. There is degenerative disc disease of the spine. XR/XR chest 1V IMPRESSION: No acute cardiopulmonary abnormality. Electronically signed by: Peter Kwok MD 03/13/2025 08:03 AM EDT
--- NOTE | 2025-03-13 06:37 | ECG_ITS ---
Test Reason : DYSPNEA Blood Pressure : */* mmHG Vent. Rate : 117 BPM Atrial Rate : 117 BPM P-R Int : 120 ms QRS Dur : 84 ms QT Int : 340 ms P-R-T Axes : 71 63 36 degrees QTcB Int : 474 ms Sinus tachycardia Otherwise normal ECG When compared with ECG of 06-Mar-2025 01:50, Increase in ventricular rate Referred By: Mariam Lopez Electronically Signed By: ANGEL HARRISON
--- NOTE | 2025-03-13 06:38 | ED.SOB ---
HPI - SOB/Dyspnea General Chief Complaint: Dyspnea Stated Complaint: COPD EXACERBATION/SOB Time Seen by Provider: 03/13/25 06:31 Source: patient and EMS Mode of arrival: EMS Limitations: no limitations History of Present Illness ED Provider: DR. Lopez HPI Narrative: 60-year-old female pertinent history of COPD / emphysema on supplemental home O2 1-3 L CPAP at night patient is not compliant because it hurt with the trigeminal neuralgia., tobacco dependence last smoke was last year, HTN, HLD, CVA, obesity, aortic stenosis with small pericardial effusion, trigeminal neuralgia, chronic pain syndrome, Presented with shortness of breath patient woke up from sleep earlier today with shortness of breath patient usually use her CPAP at home and feels better but today did not feel better, on route to the hospital patient received 2 DuoNeb by EMS without improvement. Patient reported hypoxia at home in the mid ED while she was on oxygen. Related Data Home Medications ?Medication ?Instructions ?Recorded ?Confirmed atorvastatin 80 mg tablet 80 mg PO DAILY@199903/04/23 03/01/25 rnhxtxguwl-gnjetcvgmggei-rxonvwut 1 tab PO DAILY MRX1 PRN Migraine 03/04/23 03/01/25 50 mg-325 mg-40 mg tablet Headache duloxetine 60 mg capsule,delayed 60 mg PO BID@0600,199903/04/23 03/01/25 release gabapentin 300 mg capsule 1,200 mg PO TID@0600,1200,199903/04/23 03/01/25 hyoscyamine sulfate 0.125 mg tablet 0.25 mg PO Q6H PRN Abdominal 03/04/23 03/01/25 Discomfort Oxygen Home Use 04/16/23 02/26/25 prazosin 2 mg capsule 2 mg PO DAILY@199904/16/23 03/01/25 albuterol sulfate 90 mcg/actuation 2 puff inhalation Q4H PRN 01/31/24 03/01/25 aerosol inhaler Shortness Of Breath Or Wheezing aspirin 81 mg tablet,delayed 81 mg PO DAILY@199905/22/24 03/01/25 release calcium 600 mg (as 1 tab PO DAILY@199906/20/24 03/01/25 carbonate)-vitamin D3 5 mcg (200 unit) tablet baclofen 20 mg tablet 20 mg PO TID@0600,1200,199910/29/24 03/01/25 aripiprazole 5 mg tablet (Abilify) 5 mg PO DAILY@0612/01/24 03/01/25 oxcarbazepine 300 mg tablet 300 mg PO BID@599,199912/21/24 03/01/25 lorazepam 0.5 mg tablet 0.5 mg PO BEDTIME@1999 MODERATE 01/04/25 03/01/25 Anxiety polyethylene glycol 3350 17 17 g PO DAILY PRN Constipation 01/04/25 03/01/25 gram/dose oral powder (Miralax) budesonide 160 mcg-glycopyr 9 2 inh inhalation BID@0600,1800 02/05/25 03/01/25 mcg-formot 4.8 mcg/actuation HFA inhaler (Breztri Aerosphere) lorazepam 0.5 mg tablet 0.5 mg PO DAILY PRN Anxiety 02/05/25 03/01/25 roflumilast 500 mcg tablet 500 mcg PO DAILY@0600 02/05/25 03/01/25 (Daliresp) valsartan 40 mg tablet 40 mg PO DAILY@0602/05/25 03/01/25 verapamil 120 mg tablet 120 mg PO BID@06,199902/05/25 03/01/25 nystatin 100,000 unit/gram topical 1 appl topical TID-QID 03/01/25 03/01/25 powder omeprazole 20 mg capsule,delayed 20 mg PO DAILY@0603/01/25 03/01/25 release prednisone 5 mg tablet 5 mg PO DAILY@0600 03/01/25 03/01/25 Held on 03/02/25. Instructions: Resume on 03/06/25. after completion of Prednisone 40mg X 5 days and f/u with Previous Rx's ?Medication ?Instructions ?Recorded nebulizer and compressor #1 ea 12/16/23 ipratropium 0.5 mg-albuterol 3 mg 3 ml inhalation Q4H PRN for 03/02/24 (2.5 mg base)/3 mL nebulization dyspnea #180 mL soln oxycodone 5 mg tablet 5 mg PO BID PRN Severe Pain (Scale 12/13/24 Score 7-10) #10 tabs prednisone 20 mg tablet 40 mg (2 x 20 mg) PO DAILY 5 days 03/02/25 #10 tabs Allergies Allergy/AdvReac Type Severity Reaction Status Date / Time Iodinated Contrast Media (IV Allergy Intermediate HIVES Verified 03/13/25 06:28 CONTRAST) latex (LATEX) Allergy Unknown RASH Verified 03/13/25 06:28 adhesive tape Allergy Rash Verified 03/13/25 06:28 morphine (MORPHINE) AdvReac Unknown VOMITING Verified 03/13/25 06:28 Review of Systems Review of Systems: All other systems are reviewed and are negative Constitutional: Reports as per HPI and Reports no additional constitutional complaints Eyes: Reports as per HPI and Reports no additional eye complaints Reports system reviewed and no additional complaints, except as documented Cardiovascular: Reports as per HPI and Reports no additional cardiovascular complaints Respiratory: Reports as per HPI and Reports no additional respiratory complaints Gastrointestinal: Reports as per HPI and Reports no additional gastrointestinal complaints Genitourinary: Reports no additional female genitourinary complaints Musculoskeletal: Reports no additional musculoskeletal complaints Skin/Breast: Reports system reviewed and no additional complaints, except as docu Psychiatric: Reports no additional psychiatric complaints Endocrine: Reports no additional endocrine complaints Hematologic/Lymphatic: Reports no additional hematologic/lymphatic complaints Allergic/Immunologic: Reports no additional allergic/immunologic complaints Reports system reviewed and no additional complaints, except as documented and Reports Abnormal speech present [facility] Past Medical History Medical History Morbid obesity Pulmonary nodules Diastolic heart failure Leukocytosis Chronic lung disease Chronic lung disease Hypoxia Panic disorder Hypertension Chronic hypercapnic respiratory failure Aortic stenosis Obesity (BMI 30-39.9) Asthma Acute exacerbation of chronic obstructive pulmonary disease Chronic lung disease Hypogammaglobulinemia Smoker JUANITO (obstructive sleep apnea) Allergies Elevated troponin COPD (chronic obstructive pulmonary disease) Trigeminal neuralgia Mixed hyperlipidemia Peripheral neuropathy Tobacco use disorder Mood disorder Surgical History History of esophagogastroduodenoscopy (EGD) History of colonoscopy History of lumbar discectomy History of tubal ligation History of excision of mass History of shoulder surgery Social History Social History Household Members: Spouse Household Members Other:: dog Housing: Condominium Do you presently have visiting nurse or other home services: Yes Alcohol intake: current Alcohol intake frequency: holidays/special occasions only Alcohol type: hard liquor Comment: rings appropriately Patient Tobacco Use Status: Former Tobacco user Tobacco use type: Cigarette Cigarette Packs Per Day: 4 Cigarettes Per Day: 80.0 Years Smoked: 40 Smoked in Last 30 Days: No e-Cigarette/Vaping Use: Never Used Second Hand Smoke Exposure: No Substance Use Type: Marijuana Advance Directives: Yes Advance Directives on File: Yes Advance Directives Date on File: 03/09/23 service: No Physical Exam Vital Signs: Vital Signs: Last Vital Signs Temp 97.1 F 03/13/25 06:23 Pulse 85 03/13/25 09:26 Resp 18 03/13/25 09:26 BP 142/71 H 03/13/25 09:26 Pulse Ox 93 03/13/25 09:26 O2 Del Method BiPAP 03/13/25 09:26 FiO2 35 03/13/25 09:26 Oxygen Flow Rate 8 03/13/25 06:23 BMI result Body Mass Index 41.0 Vital signs have been reviewed and appear to be correct. Blood pressure elevated. Heart rate normal. Respiratory rate normal. Temperature normal. Oxygen saturation normal. Appearance: Alert. Oriented X3. No acute distress. Head: Normal external exam. Normocephalic. Atraumatic. No Castano signs noted. No raccoon eyes noted Eyes: PERRLA. EOMI. Conjunctiva and sclera normal. Eyelids normal. ENT: TM's Normal. Pharynx normal. Uvula midline. Moist mucous membranes. No trismus noted. No drooling noted. No muffled voice noted. Neck: Normal inspection. Neck supple. FROM. No adenopathy. Thyroid Normal. No meningeal signs. No neck mass noted. CVS: Normal heart rate and rhythm. Heart sound normal. No murmurs noted. Pulses normal throughout. Respiratory: No respiratory distress. Painless inspiration. Breath sounds normal. No wheezes/rales/rhonchi noted. Chest nontender. No accessory muscle usage noted or decreased air movement noted. Abdomen: Soft and nontender. Bowel sounds normal in all 4 quadrants. No distention noted. No organomegaly noted. No visible injury noted. Back: No CVA tenderness. Full range of motion noted. Skin: Skin warm and dry. Normal skin color. Normal skin turgor. No rashes/lesions/lacerations noted. Extremities: No lower extremity edema. Extremities exhibit normal range of motion. Extremities nontender. Neuro: Oriented X 3. Cranial nerve exam: II-XII are grossly intact No motor deficit. No sensory deficit. Reflexes normal. Course Reevaluation(s) Reevaluation #1: 60-year-old female coming in for hypoxia and COPD exacerbation patient required to be on CPAP in the ED Time: 08:27 Reevaluation #2: patient is off BiPAP machine doing well Without CPAP machine Time: 09:54 Medications Administered Discontinued Medications Generic Name Dose Route Start Last Admin Trade Name Freq PRN Reason Stop Dose Admin Albuterol Sulfate 5 mg/ 0 mg 03/13/25 06:48 03/13/25 06:50 Albuterol/Ipratropium 3 ml INHALE 03/13/25 06:49 1 each ONCE ONE Administration Magnesium Sulfate 2 gm in 50 mls @ 150 mls/hr 03/13/25 06:36 03/13/25 07:48 Magnesium Sulfate/H2o IV 03/13/25 06:55 Infused ONCE ONE Infusion Methylprednisolone Sodium Succinate 125 mg 03/13/25 06:36 03/13/25 07:19 Methylprednisolone Sod Succ 125 Mg/2 Ml Vial IVPUSH 03/13/25 06:37 125 mg ONCE ONE Administration Medical Decision Making Lab Data 03/13/25 07:14 03/13/25 07:14 Labs: Lab Results 03/13/25 03/13/25 03/13/25 Range/Units 07:14 07:23 07:27 WBC 13.5 H (4.8-10.8) X10*3/uL RBC 3.79 L (4.20-5.50) X10*6/uL Hgb 11.9 L (12.0-16.0) g/dl Hct 36.7 L (37.0-47.0) % MCV 96.8 (80.0-98.0) fL MCH 31.4 (27.0-33.0) pg MCHC 32.4 (31.0-35.0) g/dl RDW 14.1 (11.0-16.0) % Plt Count 375 (160-400) X10*3/uL MPV 9.0 L (9.4-12.3) fL Immature Gran % (Auto) 1.1 H (0.0-0.4) % Neut % (Auto) 66.9 (45-73) % Lymph % (Auto) 20.7 (20-40) % [place] % (Auto) 9.5 (2-11) % Eos % (Auto) 1.5 (0-4) % Baso % (Auto) 0.3 (0-2) % Lymph # (Auto) 2.8 (1.2-4.9) X10*3/uL [place] # (Auto) 1.3 H (0.1-1.2) X10*3/uL Eos # (Auto) 0.2 (0.0-0.4) X10*3/uL Baso # (Auto) 0.0 (0.0-0.2) X10*3/uL Abs Immat Gran (auto) 0.15 H (0.00-0.03) X10*3/uL Absolute Neuts (auto) 9.1 H (2.0-8.3) x10*3/uL Absolute Nucleated RBC 0.000 (0.0-0.012) X10*3/uL Nucleated RBC % (auto) 0.0 (0.0-0.2) /100WBC PT 10.6 L (10.9-12.4) SEC INR 0.9 (0.9-1.1) VBG pH 7.38 (7.32-7.43) VBG pCO2 56 mmHg VBG pO2 133 mmHg VBG HCO3 33 H (22-26) mmol/L VBG O2 Saturation 99.0 % VBG Base Excess 6.9 mmol/L Sodium 142 (135-145) mmol/L Potassium 3.9 (3.3-5.1) mmol/L Chloride 103 (96-108) mmol/L Carbon Dioxide 31 H (22-29) mmol/L Anion Gap 12 (12-20) BUN 11 (9-16) mg/dL Creatinine 0.72 (0.5-1.4) mg/dL Estim Creat Clear Calc 83.6 Estimated GFR > 60 Random Glucose 169 H (60-115) mg/dL Lactic Acid 2.0 (0.5-2.0) mmol/L Calcium 9.2 (8.4-10.2) mg/dL Total Bilirubin 0.2 (0.0-1.0) mg/dL Direct Bilirubin < 0.2 (0.0-0.5) mg/dL AST 29 (5-31) U/L ALT 17 (0-31) U/L Alkaline Phosphatase 71 (39-117) U/L Troponin I High Sens 23.1 H (<3.5-17.0) ng/L Total Protein 6.9 (6.5-8.0) g/dL Albumin 4.1 (3.5-5.0) g/dL Lipase 16 (8-78) U/L Influenza Type A (PCR) NEGATIVE (Negative) Influenza Type B (PCR) NEGATIVE (Negative) RSV RNA Qual (PCR) NEGATIVE (Negative) SARS-CoV-2 RNA (RT-PCR) NEGATIVE (Negative) Critical Care Time Critical Care Time Critical Care Time: Yes Total Critical Care Time: 60 Attestation: The patient was critically ill with a high probability of imminent or life-threatening deterioration. I spent greater than 30 minutes of discontinuous time evaluating the patient, delivering critical care at the bedside, discussing evaluating data with consultants. Critical care time does not include time spent performing separately billable procedures or teaching. Time spent performing critical care was 60 minutes. Discharge Plan Discharge Clinical Impression: Acute exacerbation of chronic obstructive pulmonary disease, Acute respiratory distress Patient Disposition: Admitted As Inpatient Print Language: Slovak
[2025-03-13] MEDS: Albuterol Sulfate 5 MG, Albuterol/Iprat 2.5/0.5MG 3 ML 3 ML INHALE (06:50)
--- OUTSIDE RECORDS SUMMARY | 2025-03-13 07:02 | XMS_ITS | Clinical Summary ---
Author Organization [facility] Address [address] [id number] Care Team Providers Care Mine Safety Engineer Name Role Phone Antione Segura Primary Care Provider [phone] Allergies Active Allergy Reactions Criticality Noted Date [...] Type Department Care Team Description 01/29/2025 Telephone [facility] [address] [place] [phone] Basting Cleaner: Federico Hill Telephone Intake, Staff PAC Order Request; Dr. Bautista 01/25/2025 Orders Only [facility] [address] [place] [phone] Basting Cleaner: Remy Santos MD 01/25/2025 Telephone [facility] Pul[facility] Function [facility] [address] [place] [id number] Remy Bautista MD Whalen/med was not sent to pharmacy 01/24/2025 11:00 AM EDT Office Visit [facility] [address] [place] [phone] Basting Cleaner: Remy Santos MD Stage 2 moderate COPD by GOLD classification (HCC) (Primary Dx); Mass of left breast, unspecified quadrant 12/21/2024 Orders Only External Imaging [address] [place] [phone] Radiology, External from Last 3 Months Family [...] Info) Description 05/30/2025 2:00 PM EST Follow-Up [facility] [address] [place] [address] [phone] Basting Cleaner: Remy Santos MD [address] [place] [phone] Health Maintenance Due Date Last Done Comments [...] complete this topic Procedures * Due to [place] meinKauf law, this organization might not be sharing negative HIV tests. Procedure Name Priority Date/Time Associated Diagnosis Comments LAB - SCANNED 01/10/2025 AMB EXTERNAL XR CHEST, OUTSI DE RESULT 01/04/2025 AMB EXTERNAL ANGIOGRAM, OUTS YUN RESULT 12/21/[address] CHEST, OUTSI DE RESULT 11/30/2024 from Last 3 Months or Most Recently Relevant to Health Maintenance Results * Due to [place] mein[place]auf law, this organization might not be sharing [...] Most Recently Relevant to Health Maintenance Insurance [facility] HMO/POS Care Teams Mine Safety Engineer Relationship Specialty Start Date End Date Antione Segura PA [address] [place] [address] PCP - General Emergency Medicine 01/10/25
[2025-03-13] MEDS: Magnesium Sulfate/H2O 2 GM/50 ML PIGGYBACK IV (07:19)
[2025-03-13 07:23] LABS: MANUAL DIFF FLAG NO
[2025-03-13 07:24] LABS: Hematocrit 36.7 % (37.0-47.0); Hemoglobin 11.9 g/dl (12.0-16.0); Imm Gran Abs Auto 0.15 X10*3/uL (0.00-0.03); Imm Gran Pct Auto 1.1 % (0.0-0.4); Lymphocytes Absolute Auto 2.8 X10*3/uL (1.2-4.9); Mean Corpuscular HGB Conc 32.4 g/dl (31.0-35.0); Mean Corpuscular Hemoglobin 31.4 pg (27.0-33.0); Mean Corpuscular Volume 96.8 fL (80.0-98.0); NRBC Abs Auto 0.000 X10*3/uL (0.0-0.012); NRBC Pct Auto 0.0 /100WBC (0.0-0.2); Platelet Count 375 X10*3/uL (160-400); Red Blood Count 3.79 X10*6/uL (4.20-5.50); White Blood Count 13.5 X10*3/uL (4.8-10.8)
[2025-03-13 07:26] LABS: Venous Blood Gas Refer to POC result
[2025-03-13 07:27] LABS: VBG HCO3 33 mmol/L (22-26); VBG O2 % Saturation 99.0 %
[2025-03-13 07:31] LABS: INTERNATIONAL NORM RATIO 0.9 (0.9-1.1); Prothrombin Time 10.6 SEC (10.9-12.4)
[2025-03-13 07:41] LABS: Alanine Aminotransferase 17 U/L (0-31); Albumin Level 4.1 g/dL (3.5-5.0); Alkaline Phosphatase 71 U/L (39-117); Anion Gap 12 (12-20); Aspartate Amino Transferase 29 U/L (5-31); Blood Urea Nitrogen 11 mg/dL (9-16); Calcium 9.2 mg/dL (8.4-10.2); Carbon Dioxide 31 mmol/L (22-29); Chloride 103 mmol/L (96-108); Creatinine Clr Calc Pharmacy 83.6; Estimated Glomerular Filt Rate > 60; Lipase 16 U/L (8-78); Potassium 3.9 mmol/L (3.3-5.1); Sodium 142 mmol/L (135-145); Total Protein 6.9 g/dL (6.5-8.0)
[2025-03-13 07:49] LABS: Troponin-I High Sensitivity 23.1 ng/L (<3.5-17.0)
--- NOTE | 2025-03-13 07:50 | PC.NURSE ---
Pt alert and oriented, resting on stretcher, on BIPAP tolerating well. Pt medicated as charted, reporting breathing is better . ST on tele. Reports 8/10 pain in right flank is chronic. Plan of care ongoing.
[2025-03-13 08:10] LABS: Resp Syncy Virus RNA Qual PCR NEGATIVE (Negative); SARS COV2 PCR INHOUSE NEGATIVE (Negative)
--- NOTE | 2025-03-13 09:12 | PM.IMHP ---
History of Present Illness Date of Service: 03/13/25 Chief Complaint: shortness of breath 60-year-old woman with a history of COPD, emphysema on home oxygen 123 L, she is also on CPAP. She reported that she was feeling short of breath and she put herself on CPAP but it did not help. EMS gave her 2 DuoNeb treatments without improvement. Patient reported hypoxia at home but none noted while in the ED. Blood gas actually was fairly normal for her, 7.3/56/133/33. She was placed on BiPAP in the ER. Chest x-ray negative consolidation or effusion. Patient received IV Solu-Medrol in the ER and magnesium. She will be admitted for further management and treatment of acute on chronic respiratory failure secondary to COPD exacerbation Review of Systems Review of Systems: Denies any recent fever chills or decrease in appetite respiratory See HPI cardiovascular Denied chest pain gastrointestinal denies any dysphagia abdominal pain nausea vomiting or diarrhea genitourinary denies any dysuria frequency or hematuria musculoskeletal denies any joint pain or swelling neuropsych denies any weakness or seizures all other systems reviewed are negative [facility] Medical History (Updated 03/13/25 @ 10:36 by Giulia Henriquez NP) Morbid obesity Pulmonary nodules Diastolic heart failure Chronic lung disease Hypoxia Panic disorder Hypertension Chronic hypercapnic respiratory failure Aortic stenosis Asthma Hypogammaglobulinemia Smoker JUANITO (obstructive sleep apnea) Elevated troponin COPD (chronic obstructive pulmonary disease) Trigeminal neuralgia Mixed hyperlipidemia Peripheral neuropathy Tobacco use disorder Mood disorder Surgical History History of esophagogastroduodenoscopy (EGD) History of colonoscopy History of lumbar discectomy History of tubal ligation History of excision of mass History of shoulder surgery Social History Household Members: Spouse Household Members Other:: dog Housing: Condominium Do you presently have visiting nurse or other home services: Yes Alcohol intake: current Alcohol intake frequency: holidays/special occasions only Alcohol type: hard liquor Comment: rings appropriately Patient Tobacco Use Status: Former Tobacco user Tobacco use type: Cigarette Cigarette Packs Per Day: 4 Cigarettes Per Day: 80.0 Years Smoked: 40 Smoked in Last 30 Days: No e-Cigarette/Vaping Use: Never Used Second Hand Smoke Exposure: No Substance Use Type: Marijuana Advance Directives: Yes Advance Directives on File: Yes Advance Directives Date on File: 03/09/23 service: No Meds Allergies Allergy/AdvReac Type Severity Reaction Status Date / Time Iodinated Contrast Media (IV Allergy Intermediate HIVES Verified 03/13/25 06:28 CONTRAST) latex (LATEX) Allergy Unknown RASH Verified 03/13/25 06:28 adhesive tape Allergy Rash Verified 03/13/25 06:28 morphine (MORPHINE) AdvReac Unknown VOMITING Verified 03/13/25 06:28 Home Medications ?Medication ?Instructions ?Recorded ?Confirmed ?Last Taken ?Type atorvastatin 80 mg tablet 80 mg PO DAILY@199903/04/23 03/01/25 02/28/25 History dqxuhdbbls-jmxvfpncezerg-kwsmqjmy 1 tab PO DAILY MRX1 PRN Migraine 03/04/23 03/01/25 05/21/24 20:00 History 50 mg-325 mg-40 mg tablet Headache duloxetine 60 mg capsule,delayed 60 mg PO BID@0600,199903/04/23 03/01/25 03/01/25 History release gabapentin 300 mg capsule 1,200 mg PO TID@0600,1200,199903/04/23 03/01/25 03/01/25 History hyoscyamine sulfate 0.125 mg tablet 0.25 mg PO Q6H PRN Abdominal 03/04/23 03/01/25 02/04/25 History Discomfort Oxygen Home Use 04/16/23 02/26/25 10/28/24 History prazosin 2 mg capsule 2 mg PO DAILY@199904/16/23 03/01/25 03/01/25 History albuterol sulfate 90 mcg/actuation 2 puff inhalation Q4H PRN 01/31/24 03/01/25 01/04/25 History aerosol inhaler Shortness Of Breath Or Wheezing aspirin 81 mg tablet,delayed 81 mg PO DAILY@199905/22/24 03/01/25 02/28/25 History release calcium 600 mg (as 1 tab PO DAILY@199906/20/24 03/01/25 02/28/25 History carbonate)-vitamin D3 5 mcg (200 unit) tablet baclofen 20 mg tablet 20 mg PO TID@0600,1200,199910/29/24 03/01/25 03/01/25 History aripiprazole 5 mg tablet (Abilify) 5 mg PO DAILY@59912/01/24 03/01/25 03/01/25 History oxcarbazepine 300 mg tablet 300 mg PO BID@599,199912/21/24 03/01/25 03/01/25 History lorazepam 0.5 mg tablet 0.5 mg PO BEDTIME@1999 MODERATE 01/04/25 03/01/25 02/28/25 History Anxiety polyethylene glycol 3350 17 17 g PO DAILY PRN Constipation 01/04/25 03/01/25 Unknown History gram/dose oral powder (Miralax) budesonide 160 mcg-glycopyr 9 2 inh inhalation BID@06,179902/05/25 03/01/25 03/01/25 History mcg-formot 4.8 mcg/actuation HFA inhaler (Breztri Aerosphere) lorazepam 0.5 mg tablet 0.5 mg PO DAILY PRN Anxiety 02/05/25 03/01/25 Unknown History roflumilast 500 mcg tablet 500 mcg PO DAILY@59902/05/25 03/01/25 03/01/25 History (Daliresp) valsartan 40 mg tablet 40 mg PO DAILY@59902/05/25 03/01/25 03/01/25 History verapamil 120 mg tablet 120 mg PO BID@599,199902/05/25 03/01/25 03/01/25 History nystatin 100,000 unit/gram topical 1 appl topical TID-QID 03/01/25 03/01/25 03/01/25 History powder omeprazole 20 mg capsule,delayed 20 mg PO DAILY@59903/01/25 03/01/25 03/01/25 History release prednisone 5 mg tablet 5 mg PO DAILY@59903/01/25 03/01/25 03/01/25 History Held on 03/02/25. Instructions: Resume on 03/06/25. after completion of Prednisone 40mg X 5 days and f/u with Physical Exam Vital Signs and Narrative: Vital Signs: Last Vital Signs Temp 97.1 F 03/13/25 06:23 Pulse 106 H 03/13/25 07:49 Resp 21 H 03/13/25 07:49 BP 136/68 03/13/25 07:49 Pulse Ox 92 03/13/25 07:49 O2 Del Method BiPAP 03/13/25 07:49 Oxygen Flow Rate 8 03/13/25 06:23 BMI result Body Mass Index 41.0 Results Labs 03/13/25 07:14 03/13/25 07:14 Labs: Laboratory Results - last 24 hr 03/13/25 03/13/25 03/13/25 07:14 07:23 07:27 MCV 96.8 MCH 31.4 MCHC 32.4 RDW 14.1 Plt Count 375 MPV 9.0 L Immature Gran % (Auto) 1.1 H Neut % (Auto) 66.9 Lymph % (Auto) 20.7 [place] % (Auto) 9.5 Eos % (Auto) 1.5 Baso % (Auto) 0.3 Lymph # (Auto) 2.8 [place] # (Auto) 1.3 H Eos # (Auto) 0.2 Baso # (Auto) 0.0 Abs Immat Gran (auto) 0.15 H Absolute Neuts (auto) 9.1 H Absolute Nucleated RBC 0.000 Nucleated RBC % (auto) 0.0 PT 10.6 L INR 0.9 VBG pH 7.38 VBG pCO2 56 VBG pO2 133 VBG HCO3 33 H VBG O2 Saturation 99.0 VBG Base Excess 6.9 Anion Gap 12 Estim Creat Clear Calc 83.6 Estimated GFR > 60 Random Glucose 169 H Lactic Acid 2.0 Calcium 9.2 Total Bilirubin 0.2 Direct Bilirubin < 0.2 AST 29 ALT 17 Alkaline Phosphatase 71 Troponin I High Sens 23.1 H Total Protein 6.9 Albumin 4.1 Lipase 16 Influenza Type A (PCR) NEGATIVE Influenza Type B (PCR) NEGATIVE RSV RNA Qual (PCR) NEGATIVE SARS-CoV-2 RNA (RT-PCR) NEGATIVE Imaging Radiologist's Impressions: Impressions Chest X-Ray 03/13/25 07:34 IMPRESSION: No acute cardiopulmonary abnormality. Electronically signed by: Peter Kwok MD 03/13/2025 08:03 AM EDT Assessment and Plan (1) Hypertension: Qualifiers: Hypertension type: primary hypertension Qualified Code(s): I10 - Essential (primary) hypertension Status: Acute Plan 60-year-old woman admitted with acute on chronic respiratory failure, placed on BiPAP in the ER Acute on chronic hypoxic respiratory failure secondary to COPD exacerbation VBG 7.38/56/133/33 Placed on BiPAP in the ER Xopenex and IV Solu-Medrol Incentive spirometer COVID, RSV and flu negative Continue baseline oxygen to keep oxygen saturation greater than 89% Mild aortic stenosis Hypertension Hyperlipidemia GERD PPI Depression/anxiety continue home medications History of trigeminal and occipital neuralgia Continue Tegretol, gabapentin, baclofen and duloxetine History of CVA Continue aspirin and statin Obstructive sleep apnea On CPAP at home, continue BiPAP while inpatient as needed Morbid obesity. BMI 41.0 Discussed importance of weight management as this may be contributing to worsening of other comorbidities DVT prophylaxis with Lovenox Full code Quality Stroke Does the patient have a stroke diagnosis?: No VTE Prior VTE?: No VTE Risk Level:: Medical - moderate - high VTE Device Contraindication: Treatment Not Indicated VTE Drug Contraindication: N/A - Med Ordered
--- NOTE | 2025-03-13 11:41 | PHA.MEDREC ---
Addendum entered by Gurjit Jaime RPh 03/13/25 12:22: MED REC REVIEWED BY [facility] Original Note: Pharmacy Consult ? Medication Reconciliation Pharmacy has completed the medication reconciliation. Spoke with pt and she confirmed her medications and that she was just discharged with us 03/02 and there have been no changes to pt medications except for Prednisone. Pt was just started on Prednisone 40mg tab upon discharge and states she finished that last week and pt was taking a 5mg tab QD but that was put on hold 03/02 until the pt finished the 40mg regimen; pt now back on 5mg tab and is taking it q48h and states she took one yesterday.
--- NOTE | 2025-03-13 12:15 | MHC.EDTECH ---
purewick placed on pt, RN aware
[2025-03-13] MEDS: oxyCODONE HCl Immed Release 5 MG TABLET PO (15:04)
[2025-03-13] MEDS: Albuterol/Iprat 2.5/0.5MG 3 ML AMPUL.NEB INHALE (15:05)
--- NOTE | 2025-03-13 15:52 | MHC.EDTECH ---
[facility]
--- NOTE | 2025-03-13 15:53 | MHC.EDTECH ---
pt one assisted to commode for bm, bm was unsuccessful
[2025-03-13] MEDS: 0.9 % Sodium Chloride Flush 3 ML SYRINGE IVFLUSH (17:05)
[2025-03-13 18:35] LABS: Appearance Urine Cloudy; Glucose Urine UA Negative (Negative); PH >= 9.0 (5.0-9.0); Specific Gravity - Urine 1.015 (1.005-1.025); UMIC TRIGGER UACC YES
[2025-03-13] MEDS: Calcium + Vitamin D 250 MG TABLET 500 MG PO (19:50)
[2025-03-13] MEDS: Aspirin Enteric Coated 81 MG TABLET.DR PO (19:50)
[2025-03-14] VITALS (13 sets, daily range): BP systolic 112–148; BP diastolic 54–76; PULSE 79–89; RESP 18–24; TEMP 36.2–37.1; O2SAT 94–99
[2025-03-14] MEDS: oxyCODONE HCl Immed Release 5 MG TABLET PO ×2 (03:04→18:22)
[2025-03-14] MEDS: Albuterol/Iprat 2.5/0.5MG 3 ML AMPUL.NEB INHALE (06:09)
[2025-03-14 06:11] LABS: Hematocrit 36.1 % (37.0-47.0); Hemoglobin 11.9 g/dl (12.0-16.0); Mean Corpuscular HGB Conc 33.0 g/dl (31.0-35.0); Mean Corpuscular Hemoglobin 31.3 pg (27.0-33.0); Mean Corpuscular Volume 95.0 fL (80.0-98.0); NRBC Abs Auto 0.000 X10*3/uL (0.0-0.012); NRBC Pct Auto 0.0 /100WBC (0.0-0.2); Platelet Count 394 X10*3/uL (160-400); Red Blood Count 3.80 X10*6/uL (4.20-5.50); White Blood Count 14.5 X10*3/uL (4.8-10.8)
[2025-03-14 06:27] LABS: Anion Gap 11 (12-20); Blood Urea Nitrogen 12 mg/dL (9-16); Calcium 9.6 mg/dL (8.4-10.2); Carbon Dioxide 31 mmol/L (22-29); Chloride 106 mmol/L (96-108); Creatinine Clr Calc Pharmacy 95.5; Estimated Glomerular Filt Rate > 60; Potassium 4.3 mmol/L (3.3-5.1); Sodium 144 mmol/L (135-145)
[2025-03-14] MEDS: 0.9 % Sodium Chloride Flush 3 ML SYRINGE IVFLUSH ×3 (07:20→21:33)
--- NOTE | 2025-03-14 09:41 | MHC.CM.PN ---
CM met with Patient at bedside and addressed IMM with her, providing Patient with the original and a copy has been placed on the cart. Patient lives in a condo with her /HCP/Chris, who will transport at time of dc. Patient is active with [facility] and [facility] for home O2 & CPAP. Home/resume said services is Patient's goal and CM has initiated and will follow for dc planning. PCP/PA is Antioen Segura.
--- NOTE | 2025-03-14 10:00 | HO.NURTONUR ---
Pt admittted for dyspnea. A&O x4. HX of COPD, trigeminal neuralgia, cardiac history. She is on 2L o2 and CPAP/BIPAP at home. On 3L now. Using bedside commode with standby assist, desats with activity. Uses walker outside, but indpendent while inside her home. Denies dizziness or new weakness. She has had multiple admits this year. SHe reports that her neuralgia is constant. Takes scheduled meds for it. Takes pills with water, all at once. She is very particular about her cares. She c/o about cardiac diet and asked to be on regular diet. No other complaints at th is time.
--- NOTE | 2025-03-14 14:46 | P.CONPL_ITS ---
History of Present Illness History of Present Illness Consult date: 03/14/25 Chief complaint: COPD Narrative: This is an inpatient pulmonary consultation. 60-year-old woman with a history of COPD, emphysema on home oxygen , she is also on NIV. She reported that she was feeling short of breath and she put herself on PAP but it did not help. EMS gave her 2 DuoNeb treatments without improvement. Patient reported hypoxia at home but none noted while in the ED. Blood gas actually was fairly normal for her, 7.3/56/133/33. She was placed on BiPAP in the ER. Chest x-ray negative consolidation or effusion. Patient received IV Solu-Medrol in the ER and magnesium. She will be admitted for further management and treatment of acute on chronic respiratory failure secondary to COPD exacerbation. On further questioning the patient had a very stressful day that day because of PTSD she did not feel quite right when she went to bed and when she woke up all of a sudden her pulse ox was 82% and she called EMS. Overall her laboratory data on blood gas chest x-ray personally by me demonstrating no acute issues. She is feeling better. Review of Systems 2 Review of Systems: Denies any recent fever chills or decrease in appetite respiratory See HPI cardiovascular Denied chest pain gastrointestinal denies any dysphagia abdominal pain nausea vomiting or diarrhea genitourinary denies any dysuria frequency or hematuria musculoskeletal denies any joint pain or swelling neuropsych denies any weakness or seizures all other systems reviewed are negative [facility] Past Medical History Medical History (Updated 03/13/25 @ 10:36 by Giulia Henriquez NP) Morbid obesity Pulmonary nodules Diastolic heart failure Chronic lung disease Hypoxia Panic disorder Hypertension Chronic hypercapnic respiratory failure Aortic stenosis Asthma Hypogammaglobulinemia Smoker JUANITO (obstructive sleep apnea) Elevated troponin COPD (chronic obstructive pulmonary disease) Trigeminal neuralgia Mixed hyperlipidemia Peripheral neuropathy Tobacco use disorder Mood disorder Surgical History Surgical History History of esophagogastroduodenoscopy (EGD) History of colonoscopy History of lumbar discectomy History of tubal ligation History of excision of mass History of shoulder surgery Social History Social History Household Members: Spouse Household Members Other:: dog Housing: Condominium Do you presently have visiting nurse or other home services: Yes Alcohol intake: current Alcohol intake frequency: holidays/special occasions only Alcohol type: hard liquor Comment: rings appropriately Patient Tobacco Use Status: Former Tobacco user Tobacco use type: Cigarette Cigarette Packs Per Day: 4 Cigarettes Per Day: 80.0 Years Smoked: 40 Smoked in Last 30 Days: No e-Cigarette/Vaping Use: Never Used Second Hand Smoke Exposure: No Substance Use Type: Marijuana Advance Directives: Yes Advance Directives on File: Yes Advance Directives Date on File: 03/09/23 service: No Meds Allergies Allergy/AdvReac Type Severity Reaction Status Date / Time Iodinated Contrast Media (IV Allergy Intermediate HIVES Verified 03/13/25 06:28 CONTRAST) latex (LATEX) Allergy Unknown RASH Verified 03/13/25 06:28 adhesive tape Allergy Rash Verified 03/13/25 06:28 morphine (MORPHINE) AdvReac Unknown VOMITING Verified 03/13/25 06:28 Active Medications: Current Medications Acetaminophen (Acetaminophen 325 Mg Tablet) 650 mg PO Q6H PRN PRN Reason: Pain, Mild 1-3,fever,headache Acetaminophen/Butalbital/Caffeine (Butalb/Acetamin/Caff 50/325/40 Tablet) 1 tab PO DAILY MRX1 PRN PRN Reason: Migraine Headache Albuterol/Ipratropium (Albuterol/Iprat 2.5/0.5mg 3 Ml Ampul.Neb) 3 ml INHALE Q4H PRN PRN Reason: for dyspnea Last Admin: 03/14/25 06:09 Dose: 3 ml Aripiprazole (Aripiprazole 5 Mg Tablet) 5 mg PO DAILY@06 [facility] Last Admin: 03/14/25 06:06 Dose: 5 mg Aspirin (Aspirin Enteric Coated 81 Mg Tablet.Dr) 81 mg PO DAILY@1999 [facility] Last Admin: 03/13/25 19:50 Dose: 81 mg Atorvastatin Calcium (Atorvastatin Calcium 80 Mg Tablet) 80 mg PO DAILY@1999 [facility] Last Admin: 03/13/25 19:50 Dose: 80 mg Baclofen (Baclofen 20 Mg Tablet) 20 mg PO TID@0600,1199,1999 [facility] Last Admin: 03/14/25 13:16 Dose: 20 mg Calcium Carbonate (Calcium Carbonate 750 Mg Tab.Chew) 750 mg PO Q4H PRN PRN Reason: Heartburn Last Admin: 03/13/25 20:50 Dose: 750 mg Calcium Carbonate/Cholecalciferol (Calcium + Vitamin D 250 Mg Tablet) 500 mg PO DAILY@1999 [facility] Last Admin: 03/13/25 19:50 Dose: 500 mg Duloxetine HCl (Duloxetine Hcl 60 Mg Capsule.) 60 mg PO BID@ [facility] Last Admin: 03/14/25 06:06 Dose: 60 mg Enoxaparin Sodium (Enoxaparin Sodium 40 Mg/0.4 Ml Syringe) 40 mg SUBCUT Q24H [facility] Last Admin: 03/14/25 08:32 Dose: 40 mg Gabapentin (Gabapentin 400 Mg Capsule) 1,200 mg PO TID@06,1199,1999 [facility] Last Admin: 03/14/25 13:05 Dose: 1,200 mg Levalbuterol HCl (Levalbuterol Hcl 1.25 Mg/3 Ml Vial.Neb) 1.25 mg INHALE RTID [facility] Last Admin: 03/14/25 12:49 Dose: 1.25 mg Lorazepam (Lorazepam 0.5 Mg Tablet) 0.5 mg PO BEDTIME@1999 [facility] Last Admin: 03/13/25 19:50 Dose: 0.5 mg Lorazepam (Lorazepam 0.5 Mg Tablet) 0.5 mg PO DAILY PRN PRN Reason: Anxiety Last Admin: 03/14/25 11:15 Dose: 0.5 mg Magnesium Hydroxide (Milk Of Magnesia 30 Ml Oral.Susp) 30 ml PO DAILY PRN PRN Reason: Constipation Magnesium Oxide (Magnesium Oxide 400 Mg Tablet) 400 mg PO DAILY [facility] Last Admin: 03/14/25 08:32 Dose: 400 mg Melatonin (Melatonin 3 Mg Tablet) 6 mg PO BEDTIME PRN PRN Reason: Insomnia Methylprednisolone Sodium Succinate (Methylprednisolone Sod Succ 40 Mg/Ml Vial) 40 mg IVPUSH Q12H [facility] Last Admin: 03/14/25 08:33 Dose: 40 mg Non-Formulary Medication (Slbptlrwup-Xpzdyytz-Zgojuslfib [Breztri Aerosphere]) 2 inhalation INHALE BID@0600,1800 [facility] Omeprazole (Omeprazole 20 Mg Capsule.) 20 mg PO DAILY@06 [facility] Last Admin: 03/14/25 06:06 Dose: 20 mg Ondansetron HCl (Ondansetron Hcl 4 Mg/2 Ml Vial) 4 mg IVPUSH Q8H PRN PRN Reason: Nausea and Vomiting Last Admin: 03/14/25 00:32 Dose: 4 mg Oxcarbazepine (Oxcarbazepine 300 Mg Tablet) 300 mg PO BID@ [facility] Last Admin: 03/14/25 06:06 Dose: 300 mg Oxycodone HCl (Oxycodone Hcl Immed Release 5 Mg Tablet) 5 mg PO BID PRN PRN Reason: Severe Pain (Scale Score 7-10) Last Admin: 03/14/25 03:04 Dose: 5 mg Polyethylene Glycol (Polyethylene Glycol 3350 17 Gm Powd.Pack) 17 gm PO DAILY PRN PRN Reason: Constipation Prazosin HCl (Prazosin Hcl 1 Mg Capsule) 2 mg PO DAILY@1999 [facility]; Protocol Last Admin: 03/13/25 19:50 Dose: 2 mg Roflumilast (Roflumilast 500 Mcg Tablet) 500 mcg PO DAILY@599 [facility] Last Admin: 03/14/25 06:56 Dose: 500 mcg Sodium Chloride (0.9 % Sodium Chloride Flush 3 Ml Syringe) 3 ml IVFLUSH [facility] Last Admin: 03/14/25 07:20 Dose: 3 ml Valsartan (Valsartan 40 Mg Tablet) 40 mg PO DAILY@06 [facility]; Protocol Last Admin: 03/14/25 06:53 Dose: 40 mg Verapamil HCl (Verapamil Hcl 120 Mg Tablet) 120 mg PO BID@599,1999 [facility]; Protocol Last Admin: 03/14/25 06:56 Dose: 120 mg Home Medications ?Medication ?Instructions ?Recorded ?Confirmed ?Last Taken ?Type atorvastatin 80 mg tablet 80 mg PO DAILY@199903/04/23 03/13/25 03/12/25 History tpagjueaot-micsdcjjkpunv-qdawknac 1 tab PO DAILY MRX1 PRN Migraine 03/04/23 03/13/25 05/21/24 20:00 History 50 mg-325 mg-40 mg tablet Headache duloxetine 60 mg capsule,delayed 60 mg PO BID@0600,200 0 03/04/23 03/13/25 03/12/25 History release gabapentin 300 mg capsule 1,200 mg PO TID@0600,1200,20 00 03/04/23 03/13/25 03/12/25 History hyoscyamine sulfate 0.125 mg tablet 0.25 mg PO Q6H PRN Abdominal 03/04/23 03/13/25 02/04/25 History Discomfort Oxygen Home Use 04/16/23 02/26/25 10/28/24 History prazosin 2 mg capsule 2 mg PO DAILY@199904/16/23 03/13/25 03/12/25 History albuterol sulfate 90 mcg/actuation 2 puff inhalation Q 4H PRN 01/31/24 03/13/25 01/04/25 History aerosol inhaler Shortness Of Breath Or Whe[place] ing aspirin 81 mg tablet,delayed 81 mg PO DAILY@05/2203/13/25 03/12/25 History release calcium 600 mg (as 1 tab PO DAILY@199906/20/24 03/13/25 03/12/25 History carbonate)-vitamin D3 5 mcg (200 unit) tablet baclofen 20 mg tablet 20 mg PO TID@0600,1200,199910/29/24 03/13/25 03/12/25 History aripiprazole 5 mg tablet (Abilify) 5 mg PO DAILY@0600 12/01/24 03/13/25 03/12/25 History oxcarbazepine 300 mg tablet 300 mg PO BID@0600,199903/13/25 03/12/25 History lorazepam 0.5 mg tablet 0.5 mg PO BEDTIME@1999 [facility] 01/04/25 03/13/25 03/12/25 History Anxiety polyethylene glycol 3350 17 17 g PO DAILY PRN Constipa tion 01/04/25 03/13/25 Unknown History gram/dose oral powder (Miralax) budesonide 160 mcg-glycopyr 9 2 inh inhalation BID@060 0,1800 02/05/25 03/13/25 03/12/25 History mcg-formot 4.8 mcg/actuation HFA inhaler (Breztri Aerosphere) lorazepam 0.5 mg tablet 0.5 mg PO DAILY PRN Anxiety 02/05/25 03/13/25 Unknown History roflumilast 500 mcg tablet 500 mcg PO DAILY@0600 02/0503/13/25 03/12/25 History (Daliresp) valsartan 40 mg tablet 40 mg PO DAILY@0600 02/05/25 03/13/25 03/12/25 History verapamil 120 mg tablet 120 mg PO BID@0600,01/1303/13/25 03/12/25 History omeprazole 20 mg capsule,delayed 20 mg PO DAILY@0600 0 03/01/25 03/13/25 03/12/25 History release prednisone 5 mg tablet 5 mg PO Q48H 03/01/2503/12/25 History Held on 03/02/25. Instructions: Resume on 03/06/25. after completion of Prednisone 40mg X 5 days and f/u with acetaminophen 650 mg 1,300 mg PO Q8H PRN Pain 03/13/25 Unknown History tablet,extended release magnesium oxide 400 mg PO DAILY 03/13/2503/12/25 History Physical Exam 2 Vital Signs: Vital Signs: Last Vital Signs Temp 98.7 F 03/14/25 02:52 Pulse 88 03/14/25 13:09 Resp 24 H 03/14/25 13:09 BP 112/54 L 03/14/25 09:10 Pulse Ox 94 03/14/25 09:10 O2 Del Method Nasal Cannula 03/14/25 13:09 O2 Flow Rate 3 03/14/25 13:09 FiO2 35 03/13/25 09:26 Oxygen Flow Rate 8 03/13/25 06:23 BMI result Body Mass Index 41.0 Const: General: cooperative and alert Orientation/consciousness: patient oriented x3 HEENT: Head: Yes normocephalic Chest: Chest palpation & inspection: normal inspection of the chest Resp: Effort & Inspection: normal respiratory effort and able to speak in complete sentences Auscultation: no wheezes and diminished lung sounds Cardio: Heart sounds: S1 normal heart sound present, S2 normal heart sound present and Murmur heart sound present GI: Palpation (GI): Soft to palpation Skin: General skin exam: no rashes or lesions noted Neuro: General: patient oriented x3 Extrem: General: No clubbing, No cyanosis and Yes edema Results Laboratory Findings 03/14/25 05:19 03/14/25 05:19 ABG, PT/INR, D-dimer: PT/INR, D-dimer PT 10.6 SEC (10.9-12.4) L 03/13/25 07:14 INR 0.9 (0.9-1.1) 03/13/25 07:14 Abnormal lab findings: Abnormal Labs 03/13/25 03/13/25 03/13/25 07:14 07:23 18:24 WBC 13.5 H RBC 3.79 L Hgb 11.9 L Hct 36.7 L MPV 9.0 L Immature Gran % (Auto) 1.1 H [place] # (Auto) 1.3 H Abs Immat Gran (auto) 0.15 H Absolute Neuts (auto) 9.1 H PT 10.6 L VBG HCO3 33 H Carbon Dioxide 31 H Anion Gap Random Glucose 169 H Troponin I High Sens 23.1 H Ur Leukocyte Esterase Trace H 03/14/25 05:19 WBC 14.5 H RBC 3.80 L Hgb 11.9 L Hct 36.1 L MPV Immature Gran % (Auto) [place] # (Auto) Abs Immat Gran (auto) Absolute Neuts (auto) PT VBG HCO3 Carbon Dioxide 31 H Anion Gap 11 L Random Glucose 135 H Troponin I High Sens Ur Leukocyte Esterase Microbiology: Microbiology 03/13/25 07:27 Blood - Venous Blood Culture - Preliminary No growth after 24 hours. 03/13/25 07:14 Blood - Venous Blood Culture - Preliminary No growth after 24 hours. Assessment and Plan (1) Acute hypoxemic respiratory failure: Status: Acute (2) Chronic lung disease: Status: Acute (3) Panic disorder: Status: Acute Plan The patient has symptoms were exacerbated by very stressful event. Resulting in worsening hypoxia at nighttime while using the noninvasive. She is will increase her oxygen with the noninvasive ventilator to 2 L from 1. We are going to perform an overnight oximetry when she gets home on those 2 L to make sure that is adequate. Continue oxygen supplementation to maintain a pulse ox between 89-95% Continue respiratory therapy Prednisone taper Really benefit from rehabilitation either inpatient or outpatient pulmonary rehabilitation Continue IVIG as an outpatient Will follow as an outpatient Procedures Date of Service Date of Service: 03/14/25
--- NOTE | 2025-03-14 15:48 | P.PNIM_ITS ---
Subjective Subjective Date of Service: 03/14/25 Interval History: No acute issues overnight. Breathing almost back to baseline per patient Review of Systems Denies chest pain Admits shortness of breath is somewhat improved since admission Denies nausea vomiting diarrhea Denies fever chills Physical Exam 2 Vital Signs: Vital Signs: Last Vital Signs Temp 98.7 F 03/14/25 02:52 Pulse 88 03/14/25 13:09 Resp 24 H 03/14/25 13:09 BP 112/54 L 03/14/25 09:10 Pulse Ox 94 03/14/25 09:10 O2 Del Method Nasal Cannula 03/14/25 13:09 O2 Flow Rate 3 03/14/25 13:09 FiO2 35 03/13/25 09:26 Oxygen Flow Rate 8 03/13/25 06:23 BMI result Body Mass Index 41.0 Const: Other: Awake alert oriented x3 in no acute distress. Able to speak in short sentences Resp: Other: Diminished at bases with scattered expiratory wheezes Cardio: Other: No S4; positive S1-S2; no S3 murmurs rubs or gallops GI: Other: Soft nontender nondistended normoactive bowel sounds Extrem: Other: No edema bilaterally Objective Data Active Medications Acetaminophen (Acetaminophen 325 Mg Tablet) 650 mg PO Q6H PRN PRN Reason: Pain, Mild 1-3,fever,headache Acetaminophen/Butalbital/Caffeine (Butalb/Acetamin/Caff 50/325/40 Tablet) 1 tab PO DAILY MRX1 PRN PRN Reason: Migraine Headache Albuterol/Ipratropium (Albuterol/Iprat 2.5/0.5mg 3 Ml Ampul.Neb) 3 ml INHALE Q4H PRN PRN Reason: for dyspnea Last Admin: 03/14/25 06:09 Dose: 3 ml Documented By: LIZZ Aripiprazole (Aripiprazole 5 Mg Tablet) 5 mg PO DAILY@06 [facility] Last Admin: 03/14/25 06:06 Dose: 5 mg Documented By: MENG Aspirin (Aspirin Enteric Coated 81 Mg Tablet.) 81 mg PO DAILY@1999 [facility] Last Admin: 03/13/25 19:50 Dose: 81 mg Documented By: CANDY Atorvastatin Calcium (Atorvastatin Calcium 80 Mg Tablet) 80 mg PO DAILY@1999 [facility] Last Admin: 03/13/25 19:50 Dose: 80 mg Documented By: CANDY Baclofen (Baclofen 20 Mg Tablet) 20 mg PO TID@599, [facility] Last Admin: 03/14/25 13:16 Dose: 20 mg Documented By: STONE Calcium Carbonate (Calcium Carbonate 750 Mg Tab.Chew) 750 mg PO Q4H PRN PRN Reason: Heartburn Last Admin: 03/13/25 20:50 Dose: 750 mg Documented By: MENG Calcium Carbonate/Cholecalciferol (Calcium + Vitamin D 250 Mg Tablet) 500 mg PO DAILY@1999 [facility] Last Admin: 03/13/25 19:50 Dose: 500 mg Documented By: CANDY Duloxetine HCl (Duloxetine Hcl 60 Mg Capsule.) 60 mg PO BID@ [facility] Last Admin: 03/14/25 06:06 Dose: 60 mg Documented By: MENG Enoxaparin Sodium (Enoxaparin Sodium 40 Mg/0.4 Ml Syringe) 40 mg SUBCUT Q24H [facility] Last Admin: 03/14/25 08:32 Dose: 40 mg Documented By: STONE Gabapentin (Gabapentin 400 Mg Capsule) 1,200 mg PO TID@599, [facility] Last Admin: 03/14/25 13:05 Dose: 1,200 mg Documented By: STONE Levalbuterol HCl (Levalbuterol Hcl 1.25 Mg/3 Ml Vial.Neb) 1.25 mg INHALE RTID [facility] Last Admin: 03/14/25 12:49 Dose: 1.25 mg Documented By: WILL Lorazepam (Lorazepam 0.5 Mg Tablet) 0.5 mg PO BEDTIME@1999 [facility] Last Admin: 03/13/25 19:50 Dose: 0.5 mg Documented By: CANDY Lorazepam (Lorazepam 0.5 Mg Tablet) 0.5 mg PO DAILY PRN PRN Reason: Anxiety Last Admin: 03/14/25 11:15 Dose: 0.5 mg Documented By: STONE Magnesium Hydroxide (Milk Of Magnesia 30 Ml Oral.Susp) 30 ml PO DAILY PRN PRN Reason: Constipation Magnesium Oxide (Magnesium Oxide 400 Mg Tablet) 400 mg PO DAILY [facility] Last Admin: 03/14/25 08:32 Dose: 400 mg Documented By: STONE Melatonin (Melatonin 3 Mg Tablet) 6 mg PO BEDTIME PRN PRN Reason: Insomnia Methylprednisolone Sodium Succinate (Methylprednisolone Sod Succ 40 Mg/Ml Vial) 40 mg IVPUSH Q12H [facility] Last Admin: 03/14/25 08:33 Dose: 40 mg Documented By: STONE Non-Formulary Medication (Zwhvkrqruq-Gfkttbog-Uvzfgeobtb [Breztri Aerosphere]) 2 inhalation INHALE BID@0600,1800 [facility] Omeprazole (Omeprazole 20 Mg Capsule.Dr) 20 mg PO DAILY@06 [facility] Last Admin: 03/14/25 06:06 Dose: 20 mg Documented By: MENG Ondansetron HCl (Ondansetron Hcl 4 Mg/2 Ml Vial) 4 mg IVPUSH Q8H PRN PRN Reason: Nausea and Vomiting Last Admin: 03/14/25 00:32 Dose: 4 mg Documented By: MENG Oxcarbazepine (Oxcarbazepine 300 Mg Tablet) 300 mg PO BID@599,1999 [facility] Last Admin: 03/14/25 06:06 Dose: 300 mg Documented By: MENG Oxycodone HCl (Oxycodone Hcl Immed Release 5 Mg Tablet) 5 mg PO BID PRN PRN Reason: Severe Pain (Scale Score 7-10) Last Admin: 03/14/25 03:04 Dose: 5 mg Documented By: MENG Polyethylene Glycol (Polyethylene Glycol 3350 17 Gm Powd.Pack) 17 gm PO DAILY PRN PRN Reason: Constipation Prazosin HCl (Prazosin Hcl 1 Mg Capsule) 2 mg PO DAILY@1999 [facility]; Protocol Last Admin: 03/13/25 19:50 Dose: 2 mg Documented By: CANDY Roflumilast (Roflumilast 500 Mcg Tablet) 500 mcg PO DAILY@06 [facility] Last Admin: 03/14/25 06:56 Dose: 500 mcg Documented By: MENG Sodium Chloride (0.9 % Sodium Chloride Flush 3 Ml Syringe) [facility] Last Admin: 03/14/25 07:20 Dose: 3 ml Documented By: STONE Valsartan (Valsartan 40 Mg Tablet) 40 mg PO DAILY@06 [facility]; Protocol Last Admin: 03/14/25 06:53 Dose: 40 mg Documented By: MENG Verapamil HCl (Verapamil Hcl 120 Mg Tablet) 120 mg PO BID@0600,1999 [facility]; Protocol Last Admin: 03/14/25 06:56 Dose: 120 mg Documented By: MENG Labs 03/14/25 05:19 03/14/25 05:19 Labs: Laboratory Results - last 24 hr 03/13/25 03/14/25 18:24 05:19 MCV 95.0 MCH 31.3 MCHC 33.0 RDW 13.9 Plt Count 394 MPV 9.5 Absolute Nucleated RBC 0.000 Nucleated RBC % (auto) 0.0 Anion Gap 11 L Estim Creat Clear Calc 95.5 Estimated GFR > 60 Random Glucose 135 H Calcium 9.6 Urine Color Yellow Urine Appearance Cloudy Urine pH >= 9.0 Ur Specific [place] 1.015 Urine Protein Trace Urine Glucose (UA) Negative Urine Ketones Negative Urine Blood Negative Urine Nitrite Negative Ur Leukocyte Esterase Trace H Urine RBC 0-2 Urine WBC 0-5 Ur Squamous Epith Cells 0-2 Urine Bacteria None Seen Hyaline Casts 0-2 Microbiology Microbiology Results: Microbiology 03/13/25 07:27 Blood Culture - Preliminary Blood - Venous No growth after 24 hours. 03/13/25 07:14 Blood Culture - Preliminary Blood - Venous No growth after 24 hours. Assessment and Plan (1) Acute hypoxemic respiratory failure: Status: Acute (2) Acute exacerbation of COPD with asthma: Status: Acute (3) Trigeminal neuralgia: Status: Acute Plan 60-year-old woman admitted with acute on chronic respiratory failure, placed on BiPAP in the ER; subsequently weaned off and now stable on room air 1.Acute on chronic hypoxic respiratory failure secondary to COPD exacerbation -pulse dose Solu-Medrol -Xopenex treatments q.4 hours while awake -titrate nasal O2 to maintain sats > 90% 2.Depression/anxiety -continue home medications -adjust as indicated 3.History of trigeminal and occipital neuralgia -stable and well compensated -continue outpatient therapies 4.History of CVA -continue aspirin and statin 5.Obstructive sleep apnea -On CPAP at home, continue BiPAP while inpatient as needed DVT prophylaxis with Lovenox Full code Quality Stroke Does the patient have a stroke diagnosis?: No VTE Prior VTE?: No VTE Risk Level:: Medical - moderate - high VTE Device Contraindication: Treatment Not Indicated VTE Drug Contraindication: N/A - Med Ordered
[2025-03-14] MEDS: Calcium + Vitamin D 250 MG TABLET 500 MG PO (21:25)
[2025-03-14] MEDS: Aspirin Enteric Coated 81 MG TABLET.DR PO (21:26)
[2025-03-15] VITALS (9 sets, daily range): BP systolic 119–158; BP diastolic 56–73; PULSE 81–93; RESP 18–20; TEMP 36.4–37; O2SAT 92–96
[2025-03-15] MEDS: oxyCODONE HCl Immed Release 5 MG TABLET PO ×2 (06:29→20:05)
[2025-03-15] MEDS: 0.9 % Sodium Chloride Flush 3 ML SYRINGE IVFLUSH ×2 (08:40→20:05)
--- NOTE | 2025-03-15 14:21 | P.PNIM_ITS ---
Subjective Subjective Date of Service: 03/15/25 Interval History: Slow to improve. Tolerates therapy. Review of Systems Denies chest pain Admits shortness of breath is somewhat improved since admission Denies nausea vomiting diarrhea Denies fever chills Physical Exam 2 Vital Signs: Vital Signs: Last Vital Signs Temp 98.2 F 03/15/25 10:59 Pulse 82 03/15/25 10:59 Resp 20 03/15/25 10:59 BP 119/56 L 03/15/25 10:59 Pulse Ox 92 03/15/25 10:59 O2 Del Method Nasal Cannula 03/15/25 10:59 O2 Flow Rate 2 03/15/25 10:59 FiO2 35 03/13/25 09:26 Oxygen Flow Rate 8 03/13/25 06:23 BMI result Body Mass Index 41.0 Const: Other: Awake alert oriented x3 in no acute distress. Able to speak in short sentences Resp: Other: Diminished at bases with scattered expiratory wheezes Cardio: Other: No S4; positive S1-S2; no S3 murmurs rubs or gallops GI: Other: Soft nontender nondistended normoactive bowel sounds Extrem: Other: No edema bilaterally Objective Data Active Medications Acetaminophen (Acetaminophen 325 Mg Tablet) 650 mg PO Q6H PRN PRN Reason: Pain, Mild 1-3,fever,headache Acetaminophen/Butalbital/Caffeine (Butalb/Acetamin/Caff 50/325/40 Tablet) 1 tab PO DAILY MRX1 PRN PRN Reason: Migraine Headache Albuterol/Ipratropium (Albuterol/Iprat 2.5/0.5mg 3 Ml Ampul.Neb) 3 ml INHALE Q4H PRN PRN Reason: for dyspnea Last Admin: 03/14/25 06:09 Dose: 3 ml Documented By: LIZZ Aripiprazole (Aripiprazole 5 Mg Tablet) 5 mg PO DAILY@06 [facility] Last Admin: 03/15/25 06:12 Dose: 5 mg Documented By: JESS Aspirin (Aspirin Enteric Coated 81 Mg Tablet.) 81 mg PO DAILY@1999 [facility] Last Admin: 03/14/25 21:26 Dose: 81 mg Documented By: JESS Atorvastatin Calcium (Atorvastatin Calcium 80 Mg Tablet) 80 mg PO DAILY@1999 [facility] Last Admin: 03/14/25 21:20 Dose: 80 mg Documented By: JESS Baclofen (Baclofen 20 Mg Tablet) 20 mg PO TID@599, [facility] Last Admin: 03/15/25 12:05 Dose: 20 mg Documented By: LARA Calcium Carbonate (Calcium Carbonate 750 Mg Tab.Chew) 750 mg PO Q4H PRN PRN Reason: Heartburn Last Admin: 03/13/25 20:50 Dose: 750 mg Documented By: MENG Calcium Carbonate/Cholecalciferol (Calcium + Vitamin D 250 Mg Tablet) 500 mg PO DAILY@1999 [facility] Last Admin: 03/14/25 21:25 Dose: 500 mg Documented By: JESS Duloxetine HCl (Duloxetine Hcl 60 Mg Capsule.) 60 mg PO BID@ [facility] Last Admin: 03/15/25 06:06 Dose: 60 mg Documented By: JESS Enoxaparin Sodium (Enoxaparin Sodium 40 Mg/0.4 Ml Syringe) 40 mg SUBCUT Q24H [facility] Last Admin: 03/15/25 08:40 Dose: 40 mg Documented By: LARA Gabapentin (Gabapentin 400 Mg Capsule) 1,200 mg PO TID@599, [facility] Last Admin: 03/15/25 12:05 Dose: 1,200 mg Documented By: LARA Levalbuterol HCl (Levalbuterol Hcl 1.25 Mg/3 Ml Vial.Neb) 1.25 mg INHALE RTID [facility] Last Admin: 03/15/25 07:54 Dose: 1.25 mg Documented By: WILL Lorazepam (Lorazepam 0.5 Mg Tablet) 0.5 mg PO BEDTIME@1999 [facility] Last Admin: 03/14/25 21:26 Dose: 0.5 mg Documented By: JESS Lorazepam (Lorazepam 0.5 Mg Tablet) 0.5 mg PO DAILY PRN PRN Reason: Anxiety Last Admin: 03/14/25 11:15 Dose: 0.5 mg Documented By: STONE Magnesium Hydroxide (Milk Of Magnesia 30 Ml Oral.Susp) 30 ml PO DAILY PRN PRN Reason: Constipation Magnesium Oxide (Magnesium Oxide 400 Mg Tablet) 400 mg PO DAILY [facility] Last Admin: 03/15/25 08:39 Dose: 400 mg Documented By: LARA Melatonin (Melatonin 3 Mg Tablet) 6 mg PO BEDTIME PRN PRN Reason: Insomnia Methylprednisolone Sodium Succinate (Methylprednisolone Sod Succ 40 Mg/Ml Vial) 40 mg IVPUSH Q12H [facility] Last Admin: 03/15/25 08:40 Dose: 40 mg Documented By: LARA Non-Formulary Medication (Sonehffzxk-Bhcaafib-Stfhjsdobn [Breztri Aerosphere]) 2 inhalation INHALE BID@0600,1799 [facility] Omeprazole (Omeprazole 20 Mg Capsule.Dr) 20 mg PO DAILY@06 [facility] Last Admin: 03/15/25 06:12 Dose: 20 mg Documented By: JESS Ondansetron HCl (Ondansetron Hcl 4 Mg/2 Ml Vial) 4 mg IVPUSH Q8H PRN PRN Reason: Nausea and Vomiting Last Admin: 03/14/25 00:32 Dose: 4 mg Documented By: MENG Oxcarbazepine (Oxcarbazepine 300 Mg Tablet) 300 mg PO BID@599,1999 [facility] Last Admin: 03/15/25 06:12 Dose: 300 mg Documented By: JESS Oxycodone HCl (Oxycodone Hcl Immed Release 5 Mg Tablet) 5 mg PO BID PRN PRN Reason: Severe Pain (Scale Score 7-10) Last Admin: 03/15/25 06:29 Dose: 5 mg Documented By: JESS Polyethylene Glycol (Polyethylene Glycol 3350 17 Gm Powd.Pack) 17 gm PO DAILY PRN PRN Reason: Constipation Prazosin HCl (Prazosin Hcl 1 Mg Capsule) 2 mg PO DAILY@1999 [facility]; Protocol Last Admin: 03/14/25 21:20 Dose: 2 mg Documented By: JESS Roflumilast (Roflumilast 500 Mcg Tablet) 500 mcg PO DAILY@06 [facility] Last Admin: 03/15/25 06:12 Dose: 500 mcg Documented By: JESS Sodium Chloride (0.9 % Sodium Chloride Flush 3 Ml Syringe) [facility] Last Admin: 03/15/25 08:40 Dose: 3 ml Documented By: LARA Valsartan (Valsartan 40 Mg Tablet) 40 mg PO DAILY@0600 [facility]; Protocol Last Admin: 03/15/25 06:06 Dose: 40 mg Documented By: JESS Verapamil HCl (Verapamil Hcl 120 Mg Tablet) 120 mg PO BID@0600,1999 [facility]; Protocol Last Admin: 03/15/25 06:11 Dose: 120 mg Documented By: JESS Labs 03/14/25 05:19 03/14/25 05:19 Microbiology Microbiology Results: Microbiology 03/13/25 07:27 Blood Culture - Preliminary Blood - Venous No growth after 48 hours. 03/13/25 07:14 Blood Culture - Preliminary Blood - Venous No growth after 48 hours. Assessment and Plan (1) Acute exacerbation of COPD with asthma: Status: Acute (2) Acute hypoxemic respiratory failure: Status: Acute Plan 60-year-old woman admitted with acute on chronic respiratory failure, placed on BiPAP in the ER; subsequently weaned off and now stable on room air 1.Acute on chronic hypoxic respiratory failure secondary to COPD exacerbation -pulse dose Solu-Medrol -Xopenex treatments q.4 hours while awake... Tolerating well -titrate nasal O2 to maintain sats > 90% 2.Depression/anxiety -continue home medications -adjust as indicated 3.History of trigeminal and occipital neuralgia -stable and well compensated -continue outpatient therapies 4.History of CVA -continue aspirin and statin 5.Obstructive sleep apnea -On CPAP at home, continue BiPAP while inpatient as needed DVT prophylaxis with Lovenox Full code Quality Stroke Does the patient have a stroke diagnosis?: No VTE Prior VTE?: No VTE Risk Level:: Medical - moderate - high VTE Device Contraindication: Treatment Not Indicated VTE Drug Contraindication: N/A - Med Ordered
[2025-03-15] MEDS: Aspirin Enteric Coated 81 MG TABLET.DR PO (20:04)
[2025-03-15] MEDS: Calcium + Vitamin D 250 MG TABLET 500 MG PO (20:05)
[2025-03-16] VITALS (12 sets, daily range): BP systolic 114–156; BP diastolic 57–78; PULSE 71–110; RESP 18–22; TEMP 36.2–36.4; O2SAT 78–99
[2025-03-16] MEDS: 0.9 % Sodium Chloride Flush 3 ML SYRINGE IVFLUSH ×3 (10:47→21:08)
[2025-03-16] MEDS: BUDESONIDE INHALE (10:49)
[2025-03-16] MEDS: GLYCOPYRROLATE INHALE (10:49)
[2025-03-16] MEDS: FORMOTEROL INHALE (10:49)
[2025-03-16] MEDS: oxyCODONE HCl Immed Release 5 MG TABLET PO (11:17)
--- NOTE | 2025-03-16 11:51 | MHC.CM.PN ---
Patient is not yet medically cleared for dc and may benefit from a PT Eval to assist with disposition. CM will continue to follow.
--- NOTE | 2025-03-16 13:20 | HO.PM.IMPN ---
Subjective Subjective Date of Service: 03/16/25 Interval History: Slowly returning to baseline. Tolerant of therapies. Review of Systems Denies chest pain Admits shortness of breath is somewhat improved since admission Denies nausea vomiting diarrhea Denies fever chills Physical Exam Vital Signs: Vital Signs: Last Vital Signs Temp 97.1 F 03/16/25 11:16 Pulse 94 03/16/25 11:16 Resp 20 03/16/25 11:16 BP 131/65 03/16/25 11:16 Pulse Ox 94 03/16/25 11:16 O2 Del Method Nasal Cannula 03/16/25 11:16 O2 Flow Rate 2 03/16/25 11:16 FiO2 35 03/13/25 09:26 Oxygen Flow Rate 8 03/13/25 06:23 BMI result Body Mass Index 41.0 Const: Other: Awake alert oriented x3 in no acute distress. Able to speak in short sentences Resp: Other: Diminished at bases with scattered expiratory wheezes Cardio: Other: No S4; positive S1-S2; no S3 murmurs rubs or gallops GI: Other: Soft nontender nondistended normoactive bowel sounds Extrem: Other: No edema bilaterally Objective Data Active Medications Acetaminophen (Acetaminophen 325 Mg Tablet) 650 mg PO Q6H PRN PRN Reason: Pain, Mild 1-3,fever,headache Acetaminophen/Butalbital/Caffeine (Butalb/Acetamin/Caff 50/325/40 Tablet) 1 tab PO DAILY MRX1 PRN PRN Reason: Migraine Headache Albuterol/Ipratropium (Albuterol/Iprat 2.5/0.5mg 3 Ml Ampul.Neb) 3 ml INHALE Q4H PRN PRN Reason: for dyspnea Last Admin: 03/14/25 06:09 Dose: 3 ml Documented By: LIZZ Aripiprazole (Aripiprazole 5 Mg Tablet) 5 mg PO DAILY@06 [facility] Last Admin: 03/16/25 05:59 Dose: 5 mg Documented By: JESS Aspirin (Aspirin Enteric Coated 81 Mg Tablet.) 81 mg PO DAILY@1999 [facility] Last Admin: 03/15/25 20:04 Dose: 81 mg Documented By: JESS Atorvastatin Calcium (Atorvastatin Calcium 80 Mg Tablet) 80 mg PO DAILY@1999 [facility] Last Admin: 03/15/25 20:04 Dose: 80 mg Documented By: JESS Baclofen (Baclofen 20 Mg Tablet) 20 mg PO TID@599, [facility] Last Admin: 03/16/25 11:17 Dose: 20 mg Documented By: PHUC Calcium Carbonate (Calcium Carbonate 750 Mg Tab.Chew) 750 mg PO Q4H PRN PRN Reason: Heartburn Last Admin: 03/13/25 20:50 Dose: 750 mg Documented By: MENG Calcium Carbonate/Cholecalciferol (Calcium + Vitamin D 250 Mg Tablet) 500 mg PO DAILY@1999 [facility] Last Admin: 03/15/25 20:05 Dose: 500 mg Documented By: JESS Duloxetine HCl (Duloxetine Hcl 60 Mg Capsule.) 60 mg PO BID@ [facility] Last Admin: 03/16/25 06:01 Dose: 60 mg Documented By: JESS Enoxaparin Sodium (Enoxaparin Sodium 40 Mg/0.4 Ml Syringe) 40 mg SUBCUT Q24H [facility] Last Admin: 03/16/25 10:47 Dose: 40 mg Documented By: PHUC Gabapentin (Gabapentin 400 Mg Capsule) 1,200 mg PO TID@599, [facility] Last Admin: 03/16/25 11:17 Dose: 1,200 mg Documented By: PHUC Levalbuterol HCl (Levalbuterol Hcl 1.25 Mg/3 Ml Vial.Neb) 1.25 mg INHALE RTID [facility] Last Admin: 03/16/25 07:34 Dose: 1.25 mg Documented By: MARYLU Lorazepam (Lorazepam 0.5 Mg Tablet) 0.5 mg PO BEDTIME@1999 [facility] Last Admin: 03/15/25 20:04 Dose: 0.5 mg Documented By: JESS Lorazepam (Lorazepam 0.5 Mg Tablet) 0.5 mg PO DAILY PRN PRN Reason: Anxiety Last Admin: 03/14/25 11:15 Dose: 0.5 mg Documented By: STONE Magnesium Hydroxide (Milk Of Magnesia 30 Ml Oral.Susp) 30 ml PO DAILY PRN PRN Reason: Constipation Magnesium Oxide (Magnesium Oxide 400 Mg Tablet) 400 mg PO DAILY [facility] Last Admin: 03/16/25 10:48 Dose: 400 mg Documented By: PHUC Melatonin (Melatonin 3 Mg Tablet) 6 mg PO BEDTIME PRN PRN Reason: Insomnia Methylprednisolone Sodium Succinate (Methylprednisolone Sod Succ 40 Mg/Ml Vial) 40 mg IVPUSH Q12H [facility] Last Admin: 03/16/25 10:48 Dose: 40 mg Documented By: PHUC Pt Owned (Breztri Aerosphere 160-9-4.8 Mcg/Inh) 2 each INHALE RBID [facility] Last Admin: 03/16/25 10:49 Dose: 2 each Documented By: PHUC Nystatin (Nystatin Powder 15 Gm Bottle) 1 appl TOPICAL BID [facility]; Protocol Last Admin: 03/16/25 10:47 Dose: 1 appl Documented By: PHUC Omeprazole (Omeprazole 20 Mg Capsule.Dr) 20 mg PO DAILY@599 [facility] Last Admin: 03/16/25 06:00 Dose: 20 mg Documented By: JESS Ondansetron HCl (Ondansetron Hcl 4 Mg/2 Ml Vial) 4 mg IVPUSH Q8H PRN PRN Reason: Nausea and Vomiting Last Admin: 03/14/25 00:32 Dose: 4 mg Documented By: MENG Oxcarbazepine (Oxcarbazepine 300 Mg Tablet) 300 mg PO BID@599,1999 [facility] Last Admin: 03/16/25 06:00 Dose: 300 mg Documented By: JESS Oxycodone HCl (Oxycodone Hcl Immed Release 5 Mg Tablet) 5 mg PO BID PRN PRN Reason: Severe Pain (Scale Score 7-10) Last Admin: 03/16/25 11:17 Dose: 5 mg Documented By: PHUC Polyethylene Glycol (Polyethylene Glycol 3350 17 Gm Powd.Pack) 17 gm PO DAILY PRN PRN Reason: Constipation Last Admin: 03/16/25 11:37 Dose: 17 gm Documented By: PHUC Prazosin HCl (Prazosin Hcl 1 Mg Capsule) 2 mg PO DAILY@1999 [facility]; Protocol Last Admin: 03/15/25 20:04 Dose: 2 mg Documented By: JESS Roflumilast (Roflumilast 500 Mcg Tablet) 500 mcg PO DAILY@599 [facility] Last Admin: 03/16/25 05:59 Dose: 500 mcg Documented By: JESS Sodium Chloride (0.9 % Sodium Chloride Flush 3 Ml Syringe) 3 ml IVFLUSH QSHIFT [facility] Last Admin: 03/16/25 10:47 Dose: 3 ml Documented By: ROSAMARIADIREMY Valsartan (Valsartan 40 Mg Tablet) 40 mg PO DAILY@0600 [facility]; Protocol Last Admin: 03/16/25 06:00 Dose: 40 mg Documented By: JESS Verapamil HCl (Verapamil Hcl 120 Mg Tablet) 120 mg PO BID@0600,1999 [facility]; Protocol Last Admin: 03/16/25 06:00 Dose: 120 mg Documented By: JESS Labs 03/14/25 05:19 03/14/25 05:19 Microbiology Microbiology Results: Microbiology 03/13/25 07:27 Blood Culture - Preliminary Blood - Venous No growth after 48 hours. 03/13/25 07:14 Blood Culture - Preliminary Blood - Venous No growth after 48 hours. Assessment and Plan (1) Acute exacerbation of COPD with asthma: Status: Acute Plan 60-year-old woman admitted with acute on chronic respiratory failure, placed on BiPAP in the ER; subsequently weaned off and now stable on room air 1.Acute on chronic hypoxic respiratory failure secondary to COPD exacerbation -pulse dose Solu-Medrol -Xopenex treatments q.4 hours while awake... Tolerating well -titrate nasal O2 to maintain sats > 90% -physical therapy consult 2.Depression/anxiety -continue home medications -adjust as indicated 3.History of trigeminal and occipital neuralgia -stable and well compensated -continue outpatient therapies 4.History of CVA -continue aspirin and statin 5.Obstructive sleep apnea -On CPAP at home, continue BiPAP while inpatient as needed DVT prophylaxis with Lovenox Full code Quality Stroke Does the patient have a stroke diagnosis?: No VTE Prior VTE?: No VTE Risk Level:: Medical - moderate - high VTE Device Contraindication: Treatment Not Indicated VTE Drug Contraindication: N/A - Med Ordered
[2025-03-16] MEDS: Butalb/Acetamin/Caff 50/325/40 TABLET 1 TAB PO (13:22)
[2025-03-16] MEDS: Calcium + Vitamin D 250 MG TABLET 500 MG PO (20:53)
[2025-03-16] MEDS: Aspirin Enteric Coated 81 MG TABLET.DR PO (20:53)
[2025-03-17] VITALS (10 sets, daily range): BP systolic 113–146; BP diastolic 57–70; PULSE 71–89; RESP 15–22; TEMP 36.1–36.7; O2SAT 95–98
[2025-03-17] MEDS: Butalb/Acetamin/Caff 50/325/40 TABLET 1 TAB PO ×3 (05:34→20:08)
[2025-03-17] MEDS: oxyCODONE HCl Immed Release 5 MG TABLET PO ×3 (05:43→20:07)
[2025-03-17] MEDS: BUDESONIDE INHALE ×2 (11:13→20:08)
[2025-03-17] MEDS: FORMOTEROL INHALE ×2 (11:13→20:08)
[2025-03-17] MEDS: GLYCOPYRROLATE INHALE ×2 (11:13→20:08)
[2025-03-17] MEDS: 0.9 % Sodium Chloride Flush 3 ML SYRINGE IVFLUSH ×3 (11:14→20:08)
--- NOTE | 2025-03-17 12:31 | HO.PM.IMPN ---
Subjective Subjective Date of Service: 03/17/25 Interval History: Complains of headache along with back pain. Breathing slowly improving Review of Systems Denies chest pain Admits shortness of breath is somewhat improved since admission Denies nausea vomiting diarrhea Denies fever chills Physical Exam Vital Signs: Vital Signs: Last Vital Signs Temp 97.0 F 03/17/25 11:27 Pulse 72 03/17/25 11:27 Resp 20 03/17/25 11:27 BP 146/67 H 03/17/25 11:27 Pulse Ox 95 03/17/25 11:27 O2 Del Method Nasal Cannula 03/17/25 11:27 O2 Flow Rate 2 03/17/25 11:27 FiO2 35 03/13/25 09:26 Oxygen Flow Rate 8 03/13/25 06:23 BMI result Body Mass Index 41.0 Const: Other: Awake alert oriented x3 in no acute distress. Able to speak in short sentences Resp: Other: Diminished at bases with scattered expiratory wheezes Cardio: Other: No S4; positive S1-S2; no S3 murmurs rubs or gallops GI: Other: Soft nontender nondistended normoactive bowel sounds Extrem: Other: No edema bilaterally Objective Data Active Medications Acetaminophen (Acetaminophen 325 Mg Tablet) 650 mg PO Q6H PRN PRN Reason: Pain, Mild 1-3,fever,headache Acetaminophen/Butalbital/Caffeine (Butalb/Acetamin/Caff 50/325/40 Tablet) 1 tab PO Q4H PRN PRN Reason: Headache Last Admin: 03/17/25 11:54 Dose: 1 tab Documented By: PHUC Albuterol/Ipratropium (Albuterol/Iprat 2.5/0.5mg 3 Ml Ampul.Neb) 3 ml INHALE Q4H PRN PRN Reason: for dyspnea Last Admin: 03/14/25 06:09 Dose: 3 ml Documented By: LIZZ Aripiprazole (Aripiprazole 5 Mg Tablet) 5 mg PO DAILY@0600 [facility] Last Admin: 03/17/25 05:29 Dose: 5 mg Documented By: ARTHUR Aspirin (Aspirin Enteric Coated 81 Mg Tablet.) 81 mg PO DAILY@2000 [facility] Last Admin: 03/16/25 20:53 Dose: 81 mg Documented By: ARTHUR Atorvastatin Calcium (Atorvastatin Calcium 80 Mg Tablet) 80 mg PO DAILY@1999 [facility] Last Admin: 03/16/25 20:54 Dose: 80 mg Documented By: ARTHUR Baclofen (Baclofen 20 Mg Tablet) 20 mg PO TID@0600, [facility] Last Admin: 03/17/25 11:53 Dose: 20 mg Documented By: PHUC Benzonatate (Benzonatate 100 Mg Capsule) 200 mg PO TID PRN PRN Reason: Cough Last Admin: 03/16/25 18:27 Dose: 200 mg Documented By: PHUC Calcium Carbonate (Calcium Carbonate 750 Mg Tab.Chew) 750 mg PO Q4H PRN PRN Reason: Heartburn Last Admin: 03/16/25 16:05 Dose: 750 mg Documented By: PHUC Calcium Carbonate/Cholecalciferol (Calcium + Vitamin D 250 Mg Tablet) 500 mg PO DAILY@1999 [facility] Last Admin: 03/16/25 20:53 Dose: 500 mg Documented By: ARTHUR Duloxetine HCl (Duloxetine Hcl 60 Mg Capsule.) 60 mg PO BID@ [facility] Last Admin: 03/17/25 05:29 Dose: 60 mg Documented By: ARTHUR Enoxaparin Sodium (Enoxaparin Sodium 40 Mg/0.4 Ml Syringe) 40 mg SUBCUT Q24H [facility] Last Admin: 03/17/25 11:14 Dose: 40 mg Documented By: PHUC Gabapentin (Gabapentin 400 Mg Capsule) 1,200 mg PO TID@0600,1199,1999 [facility] Last Admin: 03/17/25 11:54 Dose: 1,200 mg Documented By: PHUC Levalbuterol HCl (Levalbuterol Hcl 1.25 Mg/3 Ml Vial.Neb) 1.25 mg INHALE RTID [facility] Last Admin: 03/17/25 07:43 Dose: 1.25 mg Documented By: PEE Lorazepam (Lorazepam 0.5 Mg Tablet) 0.5 mg PO BEDTIME@1999 [facility] Last Admin: 03/16/25 20:54 Dose: 0.5 mg Documented By: ARTHUR Lorazepam (Lorazepam 0.5 Mg Tablet) 0.5 mg PO DAILY PRN PRN Reason: Anxiety Last Admin: 03/16/25 13:25 Dose: 0.5 mg Documented By: PHUC Magnesium Hydroxide (Milk Of Magnesia 30 Ml Oral.Susp) 30 ml PO DAILY PRN PRN Reason: Constipation Magnesium Oxide (Magnesium Oxide 400 Mg Tablet) 400 mg PO DAILY [facility] Last Admin: 03/17/25 11:14 Dose: 400 mg Documented By: PHUC Melatonin (Melatonin 3 Mg Tablet) 6 mg PO BEDTIME PRN PRN Reason: Insomnia Methylprednisolone Sodium Succinate (Methylprednisolone Sod Succ 40 Mg/Ml Vial) 40 mg IVPUSH Q12H [facility] Last Admin: 03/17/25 11:14 Dose: 40 mg Documented By: PHUC Pt Owned (Breztri Aerosphere 160-9-4.8 Mcg/Inh) 2 each INHALE RBID [facility] Last Admin: 03/17/25 11:13 Dose: 2 each Documented By: PHUC Nystatin (Nystatin Powder 15 Gm Bottle) 1 appl TOPICAL BID [facility]; Protocol Last Admin: 03/17/25 11:15 Dose: 1 appl Documented By: PHUC Omeprazole (Omeprazole 20 Mg Capsule.) 20 mg PO DAILY@06 [facility] Last Admin: 03/17/25 05:29 Dose: 20 mg Documented By: ARTHUR Ondansetron HCl (Ondansetron Hcl 4 Mg/2 Ml Vial) 4 mg IVPUSH Q8H PRN PRN Reason: Nausea and Vomiting Last Admin: 03/14/25 00:32 Dose: 4 mg Documented By: MENG Oxcarbazepine (Oxcarbazepine 300 Mg Tablet) 300 mg PO BID@599,1999 [facility] Last Admin: 03/17/25 05:29 Dose: 300 mg Documented By: ARTHUR Oxycodone HCl (Oxycodone Hcl Immed Release 5 Mg Tablet) 5 mg PO Q4H PRN PRN Reason: Pain, Moderate(Pain Scale 4-6) Last Admin: 03/17/25 11:53 Dose: 5 mg Documented By: PHUC Polyethylene Glycol (Polyethylene Glycol 3350 17 Gm Powd.Pack) 17 gm PO DAILY PRN PRN Reason: Constipation Last Admin: 03/17/25 11:15 Dose: 17 gm Documented By: PHUC Prazosin HCl (Prazosin Hcl 1 Mg Capsule) 2 mg PO DAILY@1999 [facility]; Protocol Last Admin: 03/16/25 20:54 Dose: 2 mg Documented By: ARTHUR Roflumilast (Roflumilast 500 Mcg Tablet) 500 mcg PO DAILY@0600 [facility] Last Admin: 03/17/25 05:29 Dose: 500 mcg Documented By: ARTHUR Sodium Chloride (0.9 % Sodium Chloride Flush 3 Ml Syringe) 3 ml IVFLUSH QSHIFT [facility] Last Admin: 03/17/25 11:14 Dose: 3 ml Documented By: FIGDIAN Valsartan (Valsartan 40 Mg Tablet) 40 mg PO DAILY@0600 [facility]; Protocol Last Admin: 03/17/25 05:28 Dose: 40 mg Documented By: ARTHUR Verapamil HCl (Verapamil Hcl 120 Mg Tablet) 120 mg PO BID@0600,1999 [facility]; Protocol Last Admin: 03/17/25 05:29 Dose: 120 mg Documented By: ARTHUR Labs 03/14/25 05:19 03/14/25 05:19 Assessment and Plan (1) Acute exacerbation of COPD with asthma: Status: Acute (2) Hypertension: Status: Acute Plan 60-year-old woman admitted with acute on chronic respiratory failure, placed on BiPAP in the ER; subsequently weaned off and now stable on room air 1.Acute on chronic hypoxic respiratory failure secondary to COPD exacerbation -pulse dose Solu-Medrol -Xopenex treatments q.4 hours while awake... Tolerating well -titrate nasal O2 to maintain sats > 90% -physical therapy consult 2.Depression/anxiety -continue home medications -adjust as indicated 3.History of trigeminal and occipital neuralgia -stable and well compensated -continue outpatient therapies 4.History of CVA -continue aspirin and statin 5.Obstructive sleep apnea -On CPAP at home, continue BiPAP while inpatient as needed DVT prophylaxis with Lovenox Full code Quality Stroke Does the patient have a stroke diagnosis?: No VTE Prior VTE?: No VTE Risk Level:: Medical - moderate - high VTE Device Contraindication: Treatment Not Indicated VTE Drug Contraindication: N/A - Med Ordered
[2025-03-17] MEDS: Milk of Magnesia 30 ML ORAL.SUSP PO (16:33)
[2025-03-17] MEDS: Aspirin Enteric Coated 81 MG TABLET.DR PO (20:08)
[2025-03-17] MEDS: Calcium + Vitamin D 250 MG TABLET 500 MG PO (20:08)
[2025-03-18] VITALS (12 sets, daily range): BP systolic 119–160; BP diastolic 57–77; PULSE 76–103; RESP 12–20; TEMP 36.1–37; O2SAT 90–98
[2025-03-18] MEDS: Milk of Magnesia 30 ML ORAL.SUSP PO
[2025-03-18] MEDS: oxyCODONE HCl Immed Release 5 MG TABLET PO ×4 (00:01→19:53)
--- NOTE | 2025-03-18 06:48 | PC.NURSE ---
patient states no bm since mar 12. states not passing gas ans pt states hx of bowel obstruction. is receiving bowel regimen. prune juice given
[2025-03-18] MEDS: BUDESONIDE INHALE ×2 (09:50→22:51)
[2025-03-18] MEDS: FORMOTEROL INHALE ×2 (09:50→22:51)
[2025-03-18] MEDS: GLYCOPYRROLATE INHALE ×2 (09:50→22:51)
[2025-03-18] MEDS: Butalb/Acetamin/Caff 50/325/40 TABLET 1 TAB PO (09:53)
[2025-03-18] MEDS: 0.9 % Sodium Chloride Flush 3 ML SYRINGE IVFLUSH ×2 (10:01→16:34)
--- NOTE | 2025-03-18 10:54 | P.PNIM_ITS ---
Subjective Subjective Date of Service: 03/18/25 Interval History: Breating is better, c/o dizziness, no arrythmia on monitor Review of Systems Denies chest pain Admits shortness of breath is somewhat improved since admission Denies nausea vomiting diarrhea Denies fever chills Physical Exam 2 Vital Signs: Vital Signs: Last Vital Signs Temp 97.0 F 03/18/25 07:46 Pulse 103 H 03/18/25 07:46 Resp 20 03/18/25 07:46 BP 140/77 H 03/18/25 07:46 Pulse Ox 94 03/18/25 07:46 O2 Del Method Nasal Cannula 03/18/25 07:46 O2 Flow Rate 2 03/18/25 07:46 FiO2 35 03/13/25 09:26 Oxygen Flow Rate 8 03/13/25 06:23 BMI result Body Mass Index 41.0 Const: Other: Awake alert oriented x3 in no acute distress. Able to speak in short sentences Resp: Other: Diminished at bases with scattered expiratory wheezes Cardio: Other: No S4; positive S1-S2; no S3 murmurs rubs or gallops GI: Other: Soft nontender nondistended normoactive bowel sounds Extrem: Other: No edema bilaterally Objective Data Active Medications Acetaminophen (Acetaminophen 325 Mg Tablet) 650 mg PO Q6H PRN PRN Reason: Pain, Mild 1-3,fever,headache Acetaminophen/Butalbital/Caffeine (Butalb/Acetamin/Caff 50/325/40 Tablet) 1 tab PO Q4H PRN PRN Reason: Headache Last Admin: 03/18/25 09:53 Dose: 1 tab Documented By: PHUC Albuterol/Ipratropium (Albuterol/Iprat 2.5/0.5mg 3 Ml Ampul.Neb) 3 ml INHALE Q4H PRN PRN Reason: for dyspnea Last Admin: 03/14/25 06:09 Dose: 3 ml Documented By: LIZZ Aripiprazole (Aripiprazole 5 Mg Tablet) 5 mg PO DAILY@0600 [facility] Last Admin: 03/18/25 06:36 Dose: 5 mg Documented By: TWILA Aspirin (Aspirin Enteric Coated 81 Mg Tablet.) 81 mg PO DAILY@1999 [facility] Last Admin: 03/17/25 20:08 Dose: 81 mg Documented By: CAITLIN Atorvastatin Calcium (Atorvastatin Calcium 80 Mg Tablet) 80 mg PO DAILY@1999 [facility] Last Admin: 03/17/25 20:08 Dose: 80 mg Documented By: CAITLIN Baclofen (Baclofen 20 Mg Tablet) 20 mg PO TID@599, [facility] Last Admin: 03/18/25 06:44 Dose: 20 mg Documented By: TWILA Benzonatate (Benzonatate 100 Mg Capsule) 200 mg PO TID PRN PRN Reason: Cough Last Admin: 03/17/25 20:07 Dose: 200 mg Documented By: CAITLIN Calcium Carbonate (Calcium Carbonate 750 Mg Tab.Chew) 750 mg PO Q4H PRN PRN Reason: Heartburn Last Admin: 03/17/25 21:31 Dose: 750 mg Documented By: CAITLIN Calcium Carbonate/Cholecalciferol (Calcium + Vitamin D 250 Mg Tablet) 500 mg PO DAILY@1999 [facility] Last Admin: 03/17/25 20:08 Dose: 500 mg Documented By: CAITLIN Duloxetine HCl (Duloxetine Hcl 60 Mg Capsule.) 60 mg PO BID@ [facility] Last Admin: 03/18/25 06:37 Dose: 60 mg Documented By: TWILA Enoxaparin Sodium (Enoxaparin Sodium 40 Mg/0.4 Ml Syringe) 40 mg SUBCUT Q24H [facility] Last Admin: 03/18/25 09:51 Dose: 40 mg Documented By: PHUC Gabapentin (Gabapentin 400 Mg Capsule) 1,200 mg PO TID@599, [facility] Last Admin: 03/18/25 06:45 Dose: 1,200 mg Documented By: TWILA Levalbuterol HCl (Levalbuterol Hcl 1.25 Mg/3 Ml Vial.Neb) 1.25 mg INHALE RTID [facility] Last Admin: 03/18/25 07:30 Dose: 1.25 mg Documented By: PEE Lorazepam (Lorazepam 0.5 Mg Tablet) 0.5 mg PO BEDTIME@1999 [facility] Last Admin: 03/17/25 20:08 Dose: 0.5 mg Documented By: CAITLIN Lorazepam (Lorazepam 0.5 Mg Tablet) 0.5 mg PO DAILY PRN PRN Reason: Anxiety Last Admin: 03/18/25 00:01 Dose: 0.5 mg Documented By: TWILA Magnesium Hydroxide (Milk Of Magnesia 30 Ml Oral.Susp) 30 ml PO DAILY PRN PRN Reason: Constipation Last Admin: 03/18/25 00:00 Dose: 30 ml Documented By: TWILA Magnesium Oxide (Magnesium Oxide 400 Mg Tablet) 400 mg PO DAILY [facility] Last Admin: 03/18/25 09:53 Dose: 400 mg Documented By: PHUC Melatonin (Melatonin 3 Mg Tablet) 6 mg PO BEDTIME PRN PRN Reason: Insomnia Methylprednisolone Sodium Succinate (Methylprednisolone Sod Succ 40 Mg/Ml Vial) 40 mg IVPUSH Q12H [facility] Last Admin: 03/18/25 09:53 Dose: 40 mg Documented By: PHUC Pt Owned (Breztri Aerosphere 160-9-4.8 Mcg/Inh) 2 each INHALE RBID [facility] Last Admin: 03/18/25 09:50 Dose: 2 each Documented By: PHUC Nystatin (Nystatin Powder 15 Gm Bottle) 1 appl TOPICAL BID [facility]; Protocol Last Admin: 03/18/25 10:02 Dose: 1 appl Documented By: PHUC Omeprazole (Omeprazole 20 Mg Capsule.) 20 mg PO DAILY@0600 [facility] Last Admin: 03/18/25 06:36 Dose: 20 mg Documented By: TWILA Ondansetron HCl (Ondansetron Hcl 4 Mg/2 Ml Vial) 4 mg IVPUSH Q8H PRN PRN Reason: Nausea and Vomiting Last Admin: 03/14/25 00:32 Dose: 4 mg Documented By: MENG Oxcarbazepine (Oxcarbazepine 300 Mg Tablet) 300 mg PO BID@0600,1999 [facility] Last Admin: 03/18/25 06:36 Dose: 300 mg Documented By: TWILA Oxycodone HCl (Oxycodone Hcl Immed Release 5 Mg Tablet) 5 mg PO Q4H PRN PRN Reason: Pain, Moderate(Pain Scale 4-6) Last Admin: 03/18/25 06:44 Dose: 5 mg Documented By: TWILA Polyethylene Glycol (Polyethylene Glycol 3350 17 Gm Powd.Pack) 17 gm PO DAILY PRN PRN Reason: Constipation Last Admin: 03/17/25 11:15 Dose: 17 gm Documented By: ROSAMARIADIREMY Prazosin HCl (Prazosin Hcl 1 Mg Capsule) 2 mg PO DAILY@1999 [facility]; Protocol Last Admin: 03/17/25 20:07 Dose: 2 mg Documented By: BUSSIEL Roflumilast (Roflumilast 500 Mcg Tablet) 500 mcg PO DAILY@599 [facility] Last Admin: 03/18/25 06:36 Dose: 500 mcg Documented By: TWILA Sodium Chloride (0.9 % Sodium Chloride Flush 3 Ml Syringe) 3 ml IVFLUSH QSHIFT [facility] Last Admin: 03/18/25 10:01 Dose: 3 ml Documented By: ROSAMARIADIREMY Valsartan (Valsartan 40 Mg Tablet) 40 mg PO DAILY@599 [facility]; Protocol Last Admin: 03/18/25 06:37 Dose: 40 mg Documented By: TWILA Verapamil HCl (Verapamil Hcl 120 Mg Tablet) 120 mg PO BID@599,1999 [facility]; Protocol Last Admin: 03/18/25 06:35 Dose: 120 mg Documented By: TWILA Labs 03/14/25 05:19 03/14/25 05:19 Microbiology Microbiology Results: Microbiology 03/13/25 07:27 Blood Culture - Final Blood - Venous No growth after 5 days. 03/13/25 07:14 Blood Culture - Final Blood - Venous No growth after 5 days. Assessment and Plan (1) Acute exacerbation of COPD with asthma: Status: Acute (2) Hypertension: Status: Acute Plan 60-year-old woman admitted with acute on chronic respiratory failure, placed on BiPAP in the ER; subsequently weaned off and now stable on room air Acute on chronic hypoxic respiratory failure secondary to COPD exacerbation clinically improved, changed to PO steroid patrice contineu bronchodilators by Neb Depression/anxiety -continue home medications -adjust as indicated History of trigeminal and occipital neuralgia -stable and well compensated -continue outpatient therapies History of CVA -continue aspirin and statin .Obstructive sleep apnea -On CPAP at home, continue BiPAP while inpatient as needed DVT prophylaxis with Lovenox Full code DC tele, transfert to med surg and dc home tomorrow She has declined STR Quality Stroke Does the patient have a stroke diagnosis?: No VTE Prior VTE?: No VTE Risk Level:: Medical - moderate - high VTE Device Contraindication: Treatment Not Indicated VTE Drug Contraindication: N/A - Med Ordered
[2025-03-18] MEDS: Calcium + Vitamin D 250 MG TABLET 500 MG PO (19:51)
[2025-03-18] MEDS: Aspirin Enteric Coated 81 MG TABLET.DR PO (19:54)
[2025-03-19 01:52] VITALS: BP 167/81; PULSE 96; RESP 20; TEMP 36.3; O2SAT 92
[2025-03-19] MEDS: oxyCODONE HCl Immed Release 5 MG TABLET PO ×2 (02:06→06:30)
[2025-03-19 03:55] VITALS: BP 131/60; PULSE 82; RESP 18; TEMP 36.4; O2SAT 95
[2025-03-19 06:14] VITALS: BP 176/75
[2025-03-19 06:18] VITALS: BP 176/75; PULSE 91
[2025-03-19] MEDS: GLYCOPYRROLATE INHALE (06:31)
[2025-03-19] MEDS: FORMOTEROL INHALE (06:31)
[2025-03-19] MEDS: BUDESONIDE INHALE (06:31)
[2025-03-19 07:18] VITALS: BP 121/60; PULSE 89; RESP 16; TEMP 36; O2SAT 93
--- NOTE | 2025-03-19 07:57 | P.DS_ITS ---
DS: Providers Provider Date of Service: 03/19/25 Date of admission: 03/13/25 11:00 Date of discharge: 03/19/25 Primary care physician: Antione Segura PA-C Consults: 03/13/25 10:05 Consult to Pulmonology Routine Consulting Provider: [facility] Pulmonology Services Reason for consultation: recurrent copd exacerbation DS: Diagnosis Discharge Diagnosis (1) Acute exacerbation of COPD with asthma: Status: Acute (2) Hypertension: Status: Acute DS: Summary Hospital Course Hospital Course: Hospital Course: The patient is a 60-year-old woman with a history of COPD and emphysema, on home oxygen (1-3 L) and CPAP, who presented with acute shortness of breath. She attempted to use her CPAP at home without relief. EMS administered two DuoNeb treatments en route, with no significant improvement. On arrival to the ED, she was hypoxic at home but not in the ED. Arterial blood gas was consistent with her baseline (pH 7.3 / pCO? 56 / pO? 133 / HCO? 33). She was placed on BiPAP in the ED. Chest X-ray showed no evidence of consolidation or effusion. She received IV Solu-Medrol and magnesium in the ED. During her hospital stay, she was treated for acute on chronic hypoxic respiratory failure secondary to COPD exacerbation with IV Solu-Medrol and nebulized bronchodilators. She responded well to therapy, with resolution of acute respiratory distress. At the time of discharge, she is stable, saturating 93% on 2 L nasal cannula, and her lungs are clear on exam. Discharge Medications: * Prednisone taper (as per discharge instructions) * Home medications resumed unless otherwise specified Discharge Condition: Stable, without acute respiratory distress. Oxygen saturation 93% on 2 L nasal cannula. Lungs clear. Time Attestation Discharge Coordination Time (in mins): 40 Quality: Safe Use of Opioids Does Pt have an Active Cancer Diagnosis on the Problem List?: No Quality: Stroke Does the patient have a stroke diagnosis?: No Physical Exam Exam: Exam: General: AO X 3, no acute distress Resp: CTA bilateral CVS: S1,S2,RRR GI: +BS, NT, no distention Skin: No rash Neuro: motor grossly intact Psych: appropriate affect Vital Signs: Vital Signs: Last Vital Signs Temp 96.8 F 03/19/25 07:18 Pulse 89 03/19/25 07:18 Resp 16 03/19/25 07:18 BP 121/60 03/19/25 07:18 Pulse Ox 93 03/19/25 07:18 O2 Del Method Nasal Cannula 03/19/25 07:18 O2 Flow Rate 2 03/19/25 07:18 FiO2 35 03/13/25 09:26 Oxygen Flow Rate 8 03/13/25 06:23 BMI result Body Mass Index 41.0 DS: Data Data Completed and Pending Completed studies during hospitalization [Text1]: Procedures Assistance with Respiratory Ventilation, Less than 24 Consecutive Hours, Continuous Positive Airway Pressure (02/05/25) Introduction of Vasopressor into Peripheral Vein, Percutaneous Approach (12/01/24) Discharge Plan Discharge Anticipated Discharge Date/Time: 03/19/25 07:50 Patient Disposition: Home Health Service Discharge Diagnosis: Acute exacerbation of copd Referrals: Alex [Outside] - 1 Week Referral Note: RESUMPTION OF HOME SERVICES Antione Segura PA-C [Primary Care Provider, Internal Medicine] - 1 Week Discharge Medications: New prednisone 10 mg tablet See Taper PO DAILY Qty: 20 0RF Taper: Prednisone 40 mg daily for 3 Days and 0 Hour 30 mg daily for 3 Days and 0 Hour 20 mg daily for 3 Days and 0 Hour 10 mg daily for 3 Days and 0 Hour Rx Instructions: 40 mg Daily x3 days, 30 mg daily x3 days, 20 mg daily x3 days, 10 mg daily x3 days Continued ipratropium-albuterol 0.5 mg-3 mg(2.5 mg base)/3 mL solution for nebulization 3 ml inhalation Q4H PRN (Reason: for dyspnea) Qty: 180 11RF baclofen 20 mg tablet 20 mg PO TID@0600,1200,1999 aripiprazole [Abilify] 5 mg tablet 5 mg PO DAILY@0600 oxcarbazepine 300 mg tablet 300 mg PO BID@0600,1999 acetaminophen 650 mg Tablet Extended Release 1,300 mg PO Q8H PRN (Reason: Pain) magnesium oxide 400 mg magnesium Tablet 400 mg PO DAILY atorvastatin 80 mg tablet 80 mg PO DAILY@1999 uucyelcvyc-rggogfaqerczs-bizk 50-325-40 mg tablet 1 tab PO DAILY MRX1 PRN (Reason: Migraine Headache) hyoscyamine sulfate 0.125 mg tablet 0.25 mg PO Q6H PRN (Reason: Abdominal Discomfort) gabapentin 300 mg capsule 1,200 mg PO TID@0600,1200,1999 duloxetine 60 mg capsule,delayed release(DR/EC) 60 mg PO BID@0600,1999 (DME) nebulizer and compressor Device See Rx Instructions .Route Qty: 1 0RF Rx Instructions: As directed albuterol sulfate 90 mcg/actuation HFA aerosol inhaler 2 puff inhalation Q4H PRN (Reason: Shortness Of Breath Or Wheezing) aspirin 81 mg tablet,delayed release (DR/EC) 81 mg PO DAILY@1999 oxycodone 5 mg tablet 5 mg PO BID PRN (Reason: Severe Pain (Scale Score 7-10)) Qty: 10 0RF polyethylene glycol 3350 [Miralax] 17 gram/dose Powder 17 g PO DAILY PRN (Reason: Constipation) lorazepam 0.5 mg tablet 0.5 mg PO BEDTIME@1999 Breztri Aerosphere 160-9-4.8 mcg/actuation HFA aerosol inhaler 2 inh inhalation BID@0600,1800 lorazepam 0.5 mg tablet 0.5 mg PO DAILY PRN (Reason: Anxiety) verapamil 120 mg tablet 120 mg PO BID@0600,1999 valsartan 40 mg tablet 40 mg PO DAILY@0600 Protocol: Hold for SBP< HOLD for SBP < : 90 roflumilast [Daliresp] 500 mcg tablet 500 mcg PO DAILY@0600 prednisone 5 mg tablet 5 mg PO Q48H omeprazole 20 mg capsule,delayed release(DR/EC) 20 mg PO DAILY@0600 calcium carbonate-vitamin D3 600 mg-5 mcg (200 unit) tablet 1 tab PO DAILY@1999 prazosin 2 mg capsule 2 mg PO DAILY@1999 (DME) Oxygen Home Use Kit See Rx Instructions .Route Rx Instructions: As directed Discharge Orders: Discharge Order (Routine); Ordered 03/19/25 Ordered By: Judah Hu Diet: Advance to usual diet Activity on Discharge: As tolerated Stand Alone Forms: Patient Portal Discharge page Print Language: Hungarian Care Plan Goals: recovery from copd exacerbation and acute on chronic respiratory failure Health Concerns: chronic respiratory failure due to copd acute exacerbation of copd Plan of Treatment: * Continue home oxygen as previously prescribed * Complete prednisone taper as instructed * Continue inhalers and other home medications * Follow up with primary care provider (PCP) as scheduled * Return to ED for worsening shortness of breath, chest pain, or other concerning sympto Assessment: see above Discharge Date/Time: 03/19/25 09:34
[2025-03-19 08:04] VITALS: PULSE 83; O2SAT 95
--- NOTE | 2025-03-19 08:24 | MHC.CM.PN ---
Addendum entered by Madhuri Tidwell 03/19/25 09:14: DP: [facility] NOTIFIED OF TODAY'S DC VIA [facility]. Original Note: DP: PT HAS BEEN MEDICALLY CLEARED FOR DC HOME, NO SERVICES. PT'S SPOUSE WILL TRANSPORT.
--- NOTE | 2025-03-19 12:57 | P.F2F_ITS ---
Service Date Service Date: 03/19/25 Encounter Date of encounter: 03/19/25 Reasons for Services Signs and symptoms assessed: Shortness of breath Reason for chcf: medication management and teach disease management Homebound: Leaving the home is medically contraindicated at this time without the asist of a device and/or another person due th the listed conditions above and below. Reason homebound: shortness of breath with minimal effort and shortness of breath at rest Homebound supporting statement: chronic shortness of breath at rest and with minimal activity and needs the assistance of another person Certification: Based on the above findings, I certify that this patient is confined to the home and needs intermittent chcf care, physical therapy and/or speech therapy, or continues to need occupational therapy. The patient is under my care, and I have initiated the establishment of the plan of care. The patient will be followed by a physician who will periodically review the plan of care. Time Spent With Patient Time: Total time managing care of this patient today ____ minutes.
== END 2025-03-19 09:34 | disposition home health service (06) | DRG 140 ==
LOC: HO.ED 09:51 → HO.EDOVER 11:10 → HO.IMC 03-14 14:00 → HO.S3 03-19 00:12
PROVIDERS: Admitting Provider Nurse Practitioner Acute Care; Emergency Provider Emergency Medicine; PCP Physician Assistant Surgical; Visit Provider Internal Medicine
DX: J43.9 Emphysema, unspecified (principal); J96.21 Acute and chronic respiratory failure with hypoxia; Z99.81 Dependence on supplemental oxygen; K21.9 Gastro-esophageal reflux disease without esophagitis; I35.0 Nonrheumatic aortic (valve) stenosis; G50.0 Trigeminal neuralgia; G47.33 Obstructive sleep apnea (adult) (pediatric); F41.0 Panic disorder [episodic paroxysmal anxiety]; F32.A Depression, unspecified; M54.81 Occipital neuralgia; E66.01 Morbid (severe) obesity due to excess calories; Z68.41 Body mass index [BMI] 40.0-44.9, adult; Z20.822 Contact with and (suspected) exposure to COVID-19; Z91.199 Patient's noncompliance with other medical treatment and regimen due to unspecified reason; Z79.52 Long term (current) use of systemic steroids; Z87.891 Personal history of nicotine dependence; Z86.73 Personal history of transient ischemic attack (TIA), and cerebral infarction without residual deficits; Z79.82 Long term (current) use of aspirin; Z79.899 Other long term (current) drug therapy
CPT/HCPCS: 36415; 71045; 80048; 80076; 81001; 82803; 83605; 83690; 84484; 85025; 85027; 85610; 87040; 87637; 93005; 94640; 94660; 97162; 99285; J1650; J2405; J2919; J3475

== ENCOUNTER → 2025-03-13 06:37 | Outpatient (BNV) | payer BC, SELFPAY | PROVIDERS: Admitting Provider Nurse Practitioner Acute Care; Emergency Provider Emergency Medicine; PCP Physician Assistant Surgical; Visit Provider Internal Medicine | DX: R00.0 Tachycardia, unspecified (principal) | CPT/HCPCS: 93010 ==

== ENCOUNTER → 2025-03-13 06:37 | Outpatient (BNV) | payer BC, SELFPAY | PROVIDERS: Emergency Provider Emergency Medicine; PCP Physician Assistant Surgical; Visit Provider Radiology Diagnostic Radiology | DX: R06.02 Shortness of breath (principal) | CPT/HCPCS: 71045 ==

== ENCOUNTER → 2025-03-13 06:58 | Outpatient (BNV) | payer BC, SELFPAY | PROVIDERS: Emergency Provider Emergency Medicine; PCP Physician Assistant Surgical; Visit Provider Nurse Practitioner Acute Care | DX: J96.01 Acute respiratory failure with hypoxia (principal); J44.1 Chronic obstructive pulmonary disease with (acute) exacerbation; G50.0 Trigeminal neuralgia | CPT/HCPCS: 99232; 99239 ==

== ENCOUNTER → 2025-03-13 11:00 | Outpatient (BNV) | payer BC, SELFPAY | PROVIDERS: Admitting Provider Nurse Practitioner Acute Care; Emergency Provider Emergency Medicine; PCP Physician Assistant Surgical; Visit Provider Hospitalist | DX: J96.01 Acute respiratory failure with hypoxia (principal); J98.4 Other disorders of lung; F41.0 Panic disorder [episodic paroxysmal anxiety] | CPT/HCPCS: 99252 ==

== ENCOUNTER 2025-04-08 01:59 | Observation (INO) | payer BC, SELFPAY ==
--- OUTSIDE RECORDS SUMMARY | 2025-03-21 13:30 | XMS_ITS | Encounter Summary ---
Author Organization [facility] Address [address] [place] [phone] Phone Care Team Providers Care [place] Name Role Phone Jn Cardoza MD Unavailable Denys Henriquez MD Unavailable [phone] Antione Segura PA-C Primary Care Provider Rhett Cortez MD Unavailable Reason for Visit * Auth/Cert (Routine) Specialty Diagnoses / Procedures Referred By Dary smith Referred To Contact Referral ID Status Reason Start Date Expiration Date Visits Re quested Visits Authorized [id number] 1 1 Encounter Details Date Type Department Care Team (Late st Contact Info) Description 03/21/2025 1:30 PM EDT Home Care Visit [facility] [address] [place] [phone] Shakira Hand, HUA [address] [place] [address] [email or web address] SN OASIS RESUMPTION OF CARE (VERONIKA) Social [...] Date Recorded Lack of Transportation (Medical) No 03/21/2025 Lack of Transportation (Non-Medical) No 03/21/2025 Patient Unable or Declines to Respond No 03/21/2025 Child or Family Care Answer Date Record ed Do you have problems with on e of the following making it difficult for you to work, study, or receive health care? No 01/31/2025 Education Answer Date Recorded Are you interested in help w ith more adult education (for example, completing high school, GED, job training, learning the Anguillan language, technical skills, or developing parenting skills)? [...] Sign Reading Time Taken Comments Blood Pressure 142/68 03/21/2025 1:37 PM EDT Pulse 75 03/21/2025 1:37 PM EDT Temperature 36.5 C (97.7 F) 03/21/2025 1:37 PM EDT Respiratory Rate - - Oxygen Saturation 96% 03/21/2025 1:37 PM EDT Inhaled Oxygen Concentration - - Weight - - Height - - Body Mass Index - - documented in this encounter Plan of Treatment Upcoming Encounters Date Type Department Care Team (Late st Contact Info) Description 04/09/2025 3:00 PM EDT Home Care Visit [facility] [address] [place] [address] Eliseo Kennedyica L [address] [place] [phone] [email or web address] 04/12/2025 1:30 AM EDT Home Care Visit [facility] [address] [place] [address] Shakira Hand, HUA [address] [place] [address] [email or web address] 04/12/2025 3:00 PM EDT Home Care Visit [facility] [address] [place] [address] Brent Thao L [address] [place] [phone] [email or web address] 04/16/2025 3:00 PM EST Home Care Visit [facility] [address] [place] [phone] Kennedy, Thao L [address] [place] [address] 04/18/2025 1:30 AM EST Home Care Visit [facility] [address] [place] [phone] Shakira Hand RN [address] [place] [address] 04/19/2025 2:00 AM EST Home Care Visit [facility] [address] [place] [phone] Kennedy, Thao L [address] [place] [phone] 04/23/2025 2:00 AM EST Home Care Visit [facility] [address] [place] [phone] Kennedy, Thao L [address] [place] [address] 04/24/2025 9:40 AM EST Office Visit [facility] Medicine [address] [place] [address] Antione Segura PA-C [address] [place] [address] [email or web address] 04/25/2025 1:30 AM EST Appointment [facility] [address] [place] [phone] Shakira Hand RN [address] [place] [address] 06/25/2025 9:30 AM EST Telemedicine [facility] Neurology [address] [place] [address] Jn Cardoza MD [address] [facility], [address] [place] [address] [email or web address] documented as of this encounter Visit Diagnoses Not on filedocumented in this encounter Additional Health Concerns Assessment Noted Time PHQ-9 Depression Total Score: 23 025 3:04 PM EDT PHQ-2 Depression Total Score: 5 03/21/20 25 3:04 PM EDT documented as of this encounter Home Health Visit - Care Plan Visit Details Visit Type -SN OASIS RESUMPT ION OF CARE Discipline -Snf Problems Problem Description Start Date Status Goals [...] Management Disciplines: All Active Home Health Disciplines, Snf 12/27/2024 Active 1 goal linked to scheduled/documen [...] treatments, and s/s of complications Completed - Oxygen Therapy Description: Dose, route, [...] patient's copy of medication list as needed. Problem: - Medication Management Goal: - Safe medication management, avoid unnecessary harm related to medication errors and/or interactions Completed - Complete medication review every visit and medication reconciliation as indicated. Pharmacy information: Problem:HH - Medication Management Goal:HH - Safe medication management, avoid unnecessary harm related to medication errors and/or interactions Completed - Prefill or setup medications as follows: [...] Focus this Visit & Instruction Provided: PT AT [facility] FOR COPD EXACERBATION. REPORTS SHE HAS BEEN USING HR CPAP VENT IN HOME. DUONEBS UPDRAFTS 1-3 TIMES A DAY PRN. HAS NOT USED HER INCENTIVE SPIROMETER. USES DAILY HOME INHALERS. ON O2 CONTINUOUS. ON 1.5L TODAY. ABLE TO BRING IT UP WITH EXERTION. VS WNL, LS DIM, NO BLE EDEMA. HAS ALREADY SET UP HER MEDICATIONS FOR THE MONTH. REPORTS INTMERMITTENT DIZZINESS THROUGHOUT THE DAY. NOTED SHE DOES NOT HAVE ORTHOSTATIC HYPOTENSION. DIZZINESS IS TYPICAL WHEN SHE IS STANDING FOR EXTENDED PERIODS. PT LIVES WITH SUPPORTIVE BUT HE STILL WORKS AND IS NOT ALWAYS PRESENT DURING THE DAY. CURRENTLY ON PREDNISONE TAPER AND TO CONTINUE PREDNISONE LOW DOSE QOD AFTER TAPER IS COMPLETE. REINFORCED USE OF INCENTIVE SPIROMETER AND TO REMAIN CONSISTENT WITH CPAP USE. PT STATES SHE CANNOT KEEP CPAP MASK ON FOR EXTENDED PERIODS D/T PAIN ON LEFT FACE R/T TRIGEMINAL NEURALGIA. SN FOR TEACH/EDU ON COPD MANAGEMENT, O2 MANAGMENT, MED MANAGEMENT Instruction Provided to: patient Response to Instruction/Teaching : Is partially able to teach back topics as evidenced by NEEDS RIENROCEMENT. Plan for Next Visit Specific Focus & Education Needed: COPD, O2 MANAGEMENT New Orders: Updated Discharge Plan: HH - I/E management of care in an urgent or emergency (ER) situation: When to call your Home Care Team/[facility], ER plans, supplies, evacuation, when to [...] patient at high risk for a fall Problem:HH - Falls - Risk of Goal:HH - Knowledge and management of fall prevention [...] Completed documented in this encounter Care Teams [place] Relationship Specialty Start Date End Date Antione Segura, LONNYC [address] [place] [address] [email or web address] PCP - General Physician [employer] Teacher 10/12/24 Jn Cardoza MD [address] [place] [address], [address] [place] [address] [email or web address] Neurology 02/03/24 Denys Henriquez MD [address] [place] [address] [place] [address] Pulmonary Disease 02/03/24 Rhett Cortez MD [address] [place] [address] [email or web address] Insurance Assigned Provider 01/20/25 documented as of this encounter Additional Source Comments The information contained in this document represents components of the legal health record. It is not the complete legal health record.[facility]
--- OUTSIDE RECORDS SUMMARY | 2025-04-05 02:00 | XMS_ITS | Encounter Summary ---
Author Organization [facility] Address [address] [place] [address] Phone Care Team Providers Care Lightout Examiner Name Role Phone Jn Cardoza MD Unavailable Denys Henriquez MD Unavailable Antione Segura PA-C Primary Care Provider [phone] Rhett Cortez MD Unavailable Reason for Visit * Auth/Cert (Routine) Specialty Diagnoses / Procedures Referred By Dary smith Referred To Contact Referral ID Status Reason Start Date Expiration Date Visits Re quested Visits Authorized [id number] 1 1 Encounter Details Date Type Department Care Team (Late st Contact Info) Description 04/05/2025 2:00 AM EDT Home Care Visit [facility] [address] [place] [address] Rich Mariscal [address] [place] [address] MANAGER UTILIZATION MANAGEMENT HOME VISIT Social History Tobacco Use Types [...] high school, GED, job training, learning the Niuean language, technical skills, or developing parenting skills)? [...] Sign Reading Time Taken Comments Blood Pressure 145/76 04/05/2025 2:04 PM EDT Pulse 79 04/05/2025 2:04 PM EDT Temperature 36.4 C (97.5 F) 04/05/2025 2:04 PM EDT Respiratory Rate - - Oxygen Saturation 94% 04/05/2025 2:04 PM EDT Inhaled Oxygen Concentration - - Weight - - Height - - Body Mass Index - - documented in this encounter Plan of Treatment Upcoming Encounters Date Type Department Care Team (Late st Contact Info) Description 04/09/2025 3:00 PM EDT Home Care Visit [facility] [address] [place] [address] [address] [address] [email or web address] 04/12/2025 1:30 AM EDT Home Care Visit [facility] [address] [place] [address] Shakira Hand, HUA [address] [place] [address] [email or web address] 04/12/2025 3:00 PM EDT Home Care Visit [facility] [address] [place] [address] Thao Kennedy [address] [place] [address] [email or web address] 04/16/2025 3:00 PM EST Home Care Visit [facility] [address] [place] [phone] Kennedy, Thao L [address] [place] [address] 04/18/2025 1:30 AM EST Home Care Visit [facility] [address] [place] [phone] Shakira Hand RN [address] [place] [address] 04/19/2025 2:00 AM EST Home Care Visit [facility] [address] [place] [phone] Kennedy, Thao L [address] [place] [address] 04/23/2025 2:00 AM EST Home Care Visit [facility] [address] [place] [phone] Kennedy, Thao L [address] [place] [address] 04/24/2025 9:40 AM EST Office Visit [facility] Internal Medicine [address] [place] [address] Antione Segura PA-C [address] [place] [address] 04/25/2025 1:30 AM EST Appointment [facility] [address] [place] [phone] Shakira Hand RN [address] [place] [address] 06/25/2025 9:30 AM EST Telemedicine [facility] Neurology [address] [place] [address] Jn Cardoza MD 22 [facility], 2nd [place] [address] [email or web address] documented as of this encounter Visit Diagnoses Not on filedocumented in this encounter Additional Health Concerns Assessment Noted Time PHQ-9 Depression Total Score: 23 025 3:04 PM EDT PHQ-2 Depression Total Score: 5 03/21/20 25 3:04 PM EDT documented as of this encounter Home Health Visit - Care Plan Visit Details Visit Type -MANAGER UTILIZATION MANAGEMENT HOME VISIT Discipline -Care Home Problems Problem Description Start Date Status Goals Interve ntions HH - Medication Management Disciplines: All Active Home Health Disciplines, Care Home 12/27/2024 Active 1 goal linked to [...] & Instruction Provided: Patient alert and oriented, Wheezing to RUL, Diminished bases no coughing noted, continues with neb treatments, 02 on 2L, c/o back and tooth pain 8/10 relieved with oxycodone. Skin clean dry and intact, continues with dizziness intermittently, no falls noted. Will continue to monitor and maintain Instruction Provided to: patient Response to Instruction/Teachin g: Is partially able to teach back topics as evidenced by verbal recall. Plan for Next Visit Specific Focus & Education Needed: resp assessment New Orders: none Updated Discharge [...] Completed documented in this encounter Care Teams Lightout Examiner Relationship Specialty Start Date End Date Antione Segura PA-C [address] [place] [address] [email or web address] PCP - General Physician Cardiovascular Or Nurse 10/12/24 Jn Cardoza MD [address] [place] [address], 2nd [place] [address] [email or web address] Neurology 02/03/24 Denys Henriquez MD [address] [place] [address] [place] [address] Pulmonary Disease 02/03/24 Rhett Cortez MD [address] [place] [address] [email or web address] Insurance Assigned Provider 01/20/25 documented as of this encounter Additional Source Comments The information contained in this document represents components of the legal health record. It is not the complete legal health record.[facility]
--- OUTSIDE RECORDS SUMMARY | 2025-04-05 15:00 | XMS_ITS | Encounter Summary ---
Author Organization [facility] Address [address] [place] [address] Phone Care Team Providers Care Spectrographic Analyst Name Role Phone Jn Cardoza MD Unavailable Denys Henriquez MD Unavailable Antione Segura PA-C Primary Care Provider [phone] Rhett Cortez MD Unavailable Reason for Visit * Auth/Cert (Routine) Specialty Diagnoses / Procedures Referred By Dary smith Referred To Contact Referral ID Status Reason Start Date Expiration Date Visits Re quested Visits Authorized [id number] 1 1 Encounter Details Date Type Department Care Team (Late st Contact Info) Description 04/05/2025 3:00 PM EDT Home Care Visit [facility] [address] [place] [address] Thao Kennedy [address] [place] [address] [email or web address] HIDES SOAKER HOME VISIT Social History Tobacco Use Types [...] high school, GED, job training, learning the [place]ym[place] language, technical skills, or developing parenting skills)? [...] 3:00 PM EDT Home Care Visit [facility] [address] [place] [phone] Kennedy, Thao L [address] [place] [phone] 04/12/2025 1:30 AM EDT Home Care Visit [facility] [address] [place] [phone] Shakira Hand, RN [address] [place] [address] 04/12/2025 3:00 PM EDT Home Care Visit [facility] [address] [place] [phone] Kennedy, Thao L [address] [place] [address] 04/16/2025 3:00 PM EST Home Care Visit [facility] [address] [place] [phone] Kennedy, Thao L [address] [place] [address] 04/18/2025 1:30 AM EST Home Care Visit [facility] [address] [place] [phone] Shakira Hand RN [address] [place] [address] 04/19/2025 2:00 AM EST Home Care Visit [facility] [address] [place] [phone] Kennedy, Thao L [address] [place] [address] 04/23/2025 2:00 AM EST Home Care Visit [facility] [address] [place] [phone] Kennedy, Thao L [address] [place] [address] 04/24/2025 9:40 AM EST Office Visit [facility] Internal Medicine [address] [place] [address] Antione Segura PA-C [address] [place] [address] 04/25/2025 1:30 AM EST Appointment [facility] [address] [place] [phone] Shakira Hand RN [address] [place] [address] 06/25/2025 9:30 AM EST Telemedicine [facility] Neurology [address] [place] [address] Jn Cardoza MD 22 [facility], 2nd [place] [address] [email or web address] documented as of this encounter Visit Diagnoses Not on filedocumented in this encounter Additional Health Concerns Assessment Noted Time PHQ-9 Depression Total Score: 23 025 3:04 PM EDT PHQ-2 Depression Total Score: 5 03/21/20 25 3:04 PM EDT documented as of this encounter Home Health Visit - Care Plan Visit Details Visit Type -HIDES SOAKER HOME VISIT Discipline -Home Health Aide Problems [...] Personal care needs will be met. Scheduled HH - Care of the environment Description: Change/Make bed and Laundry essential to patient Problem:HH - Home Health Aide Care Plan Goal:HH - Personal care needs will be met. Scheduled documented in this encounter Care Teams Spectrographic Analyst Relationship Specialty Start Date End Date Antione Segura PA-C [address] [place] [address] PCP - General Physician Cement Mixer Driver 10/12/24 Jn Cardoza MD [address] [place] [address], 2nd [place] [address] Neurology 02/03/24 Denys Henriquez MD [address] [place] [address] [place] [address] Pulmonary Disease 02/03/24 Rhett Cortez MD [address] [place] [address] [email or web address] Insurance Assigned Provider 01/20/25 documented as of this encounter Additional Source Comments The information contained in this document represents components of the legal health record. It is not the complete legal health record.[facility]
--- OUTSIDE RECORDS SUMMARY | 2025-04-06 11:45 | XMS_ITS | Encounter Summary ---
Author Organization [facility] Address [address] [place] [phone] Phone Care Team Providers Care Mail Machine Operator Name Role Phone Jn Cardoza MD Unavailable Denys Henriquez MD Unavailable Antione Segura PA-C Primary Care Provider [phone] Rhett Cortez MD Unavailable Reason for Visit [...] NECK (SALIVARY GLAND) Antione Segura PA-C [address] [place] [address] Phone: tel: fax: mailto: [address] [address] Phone: tel: fax: Referral ID Status Reason Start Date Expiration Date V isits Requested Visits Authorized [id number] New Request 04/06/2025 1 1 Encounter Details Date Type Department Care Team (Latest Contact Info) Description 04/06/2025 11:45 AM EDT - 04/06/2025 11:59 PM EDT Hospital Encounter [facility], [facility] [address] [place] [address] Antione Segura PA-C [address] [place] [address] [email or web address] Arrived Discharge Disposition: Home or Self Care Social [...] high school, GED, job training, learning the Ukrainian language, technical skills, or developing parenting skills)? [...] daily. States does not have, per Dr. 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 60 tablet 11 5 oxyCODONE 5 MG immediate release tabletIndications:Acu te right-sided low back pain without sciatica Take 1 tablet (5 mg total) by mouth every 6 (six) hours as needed for pain (specific location in comments). 28 tablet 5 OXYGEN-AIR DELIVERY SYSTEMS MISC 2 L [...] 4 VIOS AEROSOL DELIVERY SYSTEM Stefani 4 documented as of this encounter Plan of Treatment Upcoming Encounters Date Type Department Care Team (Late st Contact Info) Description 04/09/2025 3:00 PM EDT Home Care Visit [facility] [address] [place] [phone] Kennedy, Thao L [address] [place] [phone] [email or web address] 04/12/2025 1:30 AM EDT Home Care Visit [facility] [address] [place] [phone] Shakira Hand RN [address] [place] [address] [email or web address] 04/12/2025 3:00 PM EDT Home Care Visit [facility] [address] [place] [phone] Kennedy, Thao L [address] [place] [phone] [email or web address] 04/16/2025 3:00 PM EST Home Care Visit [facility] [address] [place] [phone] Kennedy, Thao L [address] [place] [phone] [email or web address] 04/18/2025 1:30 AM EST Home Care Visit [facility] [address] [place] [phone] Shakira Hand, HUA [address] [place] [address] [email or web address] 04/19/2025 2:00 AM EST Home Care Visit [facility] [address] [place] [phone] Kennedy, Thao L [address] [place] [address] [email or web address] 04/23/2025 2:00 AM EST Home Care Visit [facility] [address] [place] [phone] Thao Kennedy [address] [place] [address] [email or web address] 04/24/2025 9:40 AM EST Office Visit [facility] Internal Medicine [address] [place] [address] Antione Segura PA-C [address] [place] [address] [email or web address] 04/25/2025 1:30 AM EST Appointment [facility] [address] [place] [address] Shakira Hand RN [address] [place] [address] [email or web address] 06/25/2025 9:30 AM EST Telemedicine [facility] Neurology [address] [place] [phone] Jn Cardoza MD 22 [facility], 2nd [place] [address] [email or web address] documented as of this encounter Procedures Procedure [...] as of this encounter Care Teams Mail Machine Operator Relationship Specialty Start Date End Date Antione Segura PA-C [address] [place] [address] [email or web address] PCP - General Physician Equipment Cleaner And Tester 10/12/24 Jn Cardoza MD 22 [facility], 2nd [place] [address] Neurology 02/03/24 Denys Henriquez MD [address] [place] [address] [place] [address] Pulmonary Disease 02/03/24 Rhett Cortez MD [address] [place] [address] [email or web address] Insurance Assigned Provider 01/20/25 documented as of this encounter Additional Source Comments The information contained in this document represents components of the legal health record. It is not the complete legal health record.[facility]
[2025-04-08] VITALS (19 sets, daily range): BP systolic 108–150; BP diastolic 50–78; PULSE 80–117; RESP 16–26; TEMP 35.9–36.7; O2SAT 88–98; BMI 41.5
--- NOTE | ~2025-04-08 | XR_ITS ---
CLINICAL HISTORY: SOB; Cough 1 view chest x-ray Comparison: CR/SR - XR CHEST 1V - 03/13/25 07:34 EDT Findings: The lungs are clear. Normal size heart. No acute fracture. IMPRESSION: 1. No acute findings. This document has been electronically signed by: Franco Gonzalez MD on 04/08/2025 02:49:04
--- NOTE | 2025-04-08 02:04 | ECG_ITS ---
Test Reason : SOB Blood Pressure : */* mmHG Vent. Rate : 88 BPM Atrial Rate : 88 BPM P-R Int : 126 ms QRS Dur : 84 ms QT Int : 370 ms P-R-T Axes : 55 70 41 degrees QTcB Int : 447 ms Normal sinus rhythm Normal ECG When compared with ECG of 13-Mar-2025 06:47, No significant change was found Referred By: Emmett Toledo Electronically Signed By: HARRIET ANDRES MD
--- NOTE | 2025-04-08 02:22 | ED.SOB ---
HPI - SOB/Dyspnea General Chief Complaint: Dyspnea Stated Complaint: copd Time Seen by Provider: 04/08/25 02:04 Source: patient and EMS Mode of arrival: EMS Limitations: no limitations History of Present Illness ED Provider: Emmett CARLISLE HPI Narrative: The patient is a 60-year-old female with a history of COPD, CHF, aortic stenosis, and hypercapnic respiratory failure presenting to the ED for evaluation of shortness of breath. Patient reports her home O2 was 77%, patient attempted to treat her symptoms with a breathing treatment at home, felt no improvement in activated EMS. EMS reports they found the patient with SpO2 in the 80s, given Solu-Medrol and DuoNeb with improvement to 97%. The patient denies associated chest pain, fever/chills, vomiting, diarrhea, recent sick contacts, or recent trauma. The patient reports she has been compliant with her medications. Related Data Home Medications ?Medication ?Instructions ?Recorded ?Confirmed atorvastatin 80 mg tablet 80 mg PO DAILY@199903/04/23 04/08/25 lctagyxgpd-npnamvvphnfbq-rbgxhmqj 1 tab PO DAILY MRX1 PRN Migraine 03/04/23 04/08/25 50 mg-325 mg-40 mg tablet Headache duloxetine 60 mg capsule,delayed 60 mg PO BID@0600,199903/04/23 04/08/25 release gabapentin 300 mg capsule 1,200 mg PO TID@0600,1200,199903/04/23 04/08/25 hyoscyamine sulfate 0.125 mg tablet 0.25 mg PO Q6H PRN Abdominal 03/04/23 04/08/25 Discomfort Oxygen Home Use 04/16/23 02/26/25 prazosin 2 mg capsule 2 mg PO DAILY@199904/16/23 04/08/25 albuterol sulfate 90 mcg/actuation 2 puff inhalation Q4H PRN 01/31/24 04/08/25 aerosol inhaler Shortness Of Breath Or Wheezing aspirin 81 mg tablet,delayed 81 mg PO DAILY@199905/22/24 04/08/25 release calcium 600 mg (as 1 tab PO DAILY@199906/20/24 04/08/25 carbonate)-vitamin D3 5 mcg (200 unit) tablet baclofen 20 mg tablet 20 mg PO TID@0600,1200,199910/29/24 04/08/25 aripiprazole 5 mg tablet (Abilify) 5 mg PO DAILY@0600 12/01/24 04/08/25 oxcarbazepine 300 mg tablet 300 mg PO BID@599,199912/21/24 04/08/25 lorazepam 0.5 mg tablet 0.5 mg PO BEDTIME@1999 MODERATE 01/04/25 04/08/25 Anxiety polyethylene glycol 3350 17 17 g PO DAILY PRN Constipation 01/04/25 04/08/25 gram/dose oral powder (Miralax) budesonide 160 mcg-glycopyr 9 2 inh inhalation BID@0600,1800 02/05/25 04/08/25 mcg-formot 4.8 mcg/actuation HFA inhaler (Breztri Aerosphere) lorazepam 0.5 mg tablet 0.5 mg PO DAILY PRN Anxiety 02/05/25 04/08/25 roflumilast 500 mcg tablet 500 mcg PO DAILY@0602/05/25 04/08/25 (Daliresp) valsartan 40 mg tablet 40 mg PO DAILY@0602/05/25 04/08/25 verapamil 120 mg tablet 120 mg PO BID@0600,199902/05/25 04/08/25 omeprazole 20 mg capsule,delayed 20 mg PO DAILY@0603/01/25 04/08/25 release prednisone 5 mg tablet 5 mg PO Q48H 03/01/25 04/08/25 acetaminophen 650 mg 1,300 mg PO Q8H PRN Pain 03/13/25 04/08/25 tablet,extended release magnesium oxide 400 mg PO DAILY 03/13/25 04/08/25 oxycodone 5 mg tablet 5 mg PO Q6H PRN Severe Pain (Scale 04/08/25 04/08/25 Score 7-10) Previous Rx's ?Medication ?Instructions ?Recorded nebulizer and compressor #1 ea 12/16/23 ipratropium 0.5 mg-albuterol 3 mg 3 ml inhalation Q4H PRN for 03/02/24 (2.5 mg base)/3 mL nebulization dyspnea #180 mL soln Allergies Allergy/AdvReac Type Severity Reaction Status Date / Time Iodinated Contrast Media (IV Allergy Intermediate HIVES Verified 04/08/25 02:05 CONTRAST) latex (LATEX) Allergy Unknown RASH Verified 04/08/25 02:05 adhesive tape Allergy Rash Verified 04/08/25 02:05 morphine (MORPHINE) AdvReac Unknown VOMITING Verified 04/08/25 02:05 Review of Systems Review of Systems: Yes all other systems are reviewed and are negative PMFSH Past Medical History Medical History (Updated 04/08/25 @ 05:28 by Emmett Toledo PA-C) Chronic lung disease Morbid obesity Pulmonary nodules Diastolic heart failure Chronic lung disease Hypoxia Panic disorder Hypertension Chronic hypercapnic respiratory failure Aortic stenosis Asthma Hypogammaglobulinemia Smoker JUANITO (obstructive sleep apnea) Elevated troponin COPD (chronic obstructive pulmonary disease) Trigeminal neuralgia Mixed hyperlipidemia Peripheral neuropathy Tobacco use disorder Mood disorder Surgical History History of esophagogastroduodenoscopy (EGD) History of colonoscopy History of lumbar discectomy History of tubal ligation History of excision of mass History of shoulder surgery Social History Social History Household Members: None Household Members Other:: dog [facility] Do you presently have visiting nurse or other home services: Yes Alcohol intake: current Alcohol intake frequency: holidays/special occasions only Alcohol type: hard liquor Comment: refusing bed alarm Patient Tobacco Use Status: Former Tobacco user Tobacco use type: Cigarette Cigarette Packs Per Day: 4 Cigarettes Per Day: 80.0 Years Smoked: 40 e-Cigarette/Vaping Use: Never Used Second Hand Smoke Exposure: No Substance Use Type: Marijuana Advance Directives: Yes Advance Directives on File: Yes Advance Directives Date on File: 03/09/23 service: No Physical Exam Vital Signs: Vital Signs: Last Vital Signs Temp 98.0 F 04/08/25 02:05 Pulse 84 04/08/25 06:57 Resp 17 04/08/25 06:57 BP 135/66 04/08/25 06:57 Pulse Ox 91 L 04/08/25 06:57 O2 Del Method BiPAP 04/08/25 06:57 FiO2 32 04/08/25 06:57 Oxygen Flow Rate 3 04/08/25 02:05 BMI result Body Mass Index 41.5 CONSTITUTIONAL: The patient appears chronically ill, otherwise non-toxic and well-nourished. Moderately increased respiratory rate and work of breathing with accessory muscle use noted, otherwise in no acute distress. Vital signs as documented. HEAD: Atraumatic, normocephalic. EYES: EOMs grossly intact, pupils equal, conjunctiva clear, no exudate. ENT: Nares patent, no discharge. Airway patent, no audible stridor, visible mucosa is pink and moist without noted lesions. NECK: Trachea is midline, no obvious masses or gross abnormalities. CHEST: Symmetric movement, normal appearance. LUNGS: Lung sounds diminished throughout with audible expiratory wheeze noted, no rales or rhonchi, increased work of breathing and respiratory rate with accessory muscle use. Breathing effort appears mildly fatigued. CARDIAC: Regular Rhythm, S1/S2 appreciated, no murmurs, rubs or gallops. ABDOMEN: Abdomen soft and non-tender x4 quadrants, no palpable masses or organomegaly. : Deferred. EXTREMITIES: Normal tone, moves all extremities spontaneously without reported pain. No obvious acute injury or deformity noted. NEURO: Alert and oriented x3, CN II-XII appear grossly intact. Cerebellar Functioning grossly intact. No obvious sensory or motor deficits. Speech clear and appropriate. PSYCH: normal affect, appropriate eye contact, fluid speech, with appropriate response to questioning. No reported suicidality or homicidality. SKIN: Warm, dry, color appropriate, normal turgor. No rashes noted. Medications Administered Discontinued Medications Generic Name Dose Route Start Last Admin Trade Name Freq PRN Reason Stop Dose Admin Albuterol Sulfate 5 mg/ 7.5 mg 04/08/25 02:32 04/08/25 02:39 Albuterol Sulfate 2.5 mg INHALE 04/08/25 02:33 7.5 mg ONCE ONE Administration Medical Decision Making Medical Decision Making MDM Narrative: 2:24 AM 04/08/2025 (Lexy CARLISLE): The patient is a 60-year-old female with a history of COPD, CHF, aortic stenosis, and hypercapnic respiratory failure presenting to the ED for evaluation of shortness of breath. Patient reports her home O2 was 77%, patient attempted to treat her symptoms with a breathing treatment at home, felt no improvement in activated EMS. EMS reports they found the patient with SpO2 in the 80s, given Solu-Medrol and DuoNeb with improvement to 97%. The patient denies associated chest pain, fever/chills, vomiting, diarrhea, recent sick contacts, or recent trauma. The patient reports she has been compliant with her medications. The patient's exam demonstrates increased work of breathing with accessory muscle use and increased respiratory rate, breathing effort appears fatigued. Lung sounds are diminished throughout with expiratory wheeze noted. The patient denies previous intubation for respiratory failure, but does report previous use of BiPAP. Patient states she routinely uses CPAP at home at night and states she feels she would benefit from positive pressure at this time. The patient will be treated with additional nebulizer therapy and we will obtain chest x-ray, EKG, ABG, and basic laboratory evaluation. Patient will be placed on BiPAP as she routinely is dependent on CPAP at night and we will use this as an adjunct to her steroid and nebulizer therapies, I do not suspect an infectious source at this time, and no indication for sepsis alert. 5:14 AM 04/08/2025 (Lexy CARLISLE): The patient's ABG demonstrated pCO2 of 69 baseline this year is 43-54. PO2 is 73. Remainder of laboratory workup is reassuring, no leukocytosis, significant anemia, electrolyte abnormality, or MAKI. Troponin is within normal range, BNP is normal. The patient's chest x-ray shows no focal cardiopulmonary process. The patient was placed on BiPAP with subsequent marked improvement in respiratory effort. Patient is currently sleeping comfortably but is easily arousable, normotensive, with SpO2 92% on BiPAP. The patient will have a repeat VBG and discontinuation of BiPAP if pCO2 shows significant improvement. We will admit for COPD exacerbation with hypercapnia. Patient remains afebrile and I still do not suspect an infectious source. Time: 08:38 Date: 04/08/25 Provider: Bakari Escalona MD I assumed care of this patient from my colleague, Emmett Toledo at 06:00 hours. Patient's VBG 7.38/54/175/32. PCO2 improved significantly from 69 after being on BiPAP. I will discuss admission with the covering hospitalist, Dr. Lee, he evaluated the patient in the emergency department and admitted her to the hospitalist service. Differential Diagnosis Differential Diagnoses: The differential diagnosis associated with the presentation includes (See above) Admission/Observation Consideration of admission/observation: Escalation of care including admission/observation considered (Yes) Lab Data MDM Lab Attestation statement: I reviewed the patient's lab results. 04/08/25 02:46 04/08/25 02:46 Labs: Lab Results 04/08/25 04/08/25 04/08/25 Range/Units 02:46 02:55 07:40 WBC 7.8 (4.8-10.8) X10*3/uL RBC 3.82 L (4.20-5.50) X10*6/uL Hgb 11.6 L (12.0-16.0) g/dl Hct 37.1 (37.0-47.0) % MCV 97.1 (80.0-98.0) fL MCH 30.4 (27.0-33.0) pg MCHC 31.3 (31.0-35.0) g/dl RDW 14.6 (11.0-16.0) % Plt Count 311 (160-400) X10*3/uL MPV 9.1 L (9.4-12.3) fL Immature Gran % (Auto) 0.3 (0.0-0.4) % Neut % (Auto) 60.4 (45-73) % Lymph % (Auto) 27.4 (20-40) % Grimes % (Auto) 8.4 (2-11) % Eos % (Auto) 3.1 (0-4) % Baso % (Auto) 0.4 (0-2) % Lymph # (Auto) 2.2 (1.2-4.9) X10*3/uL Grimes # (Auto) 0.7 (0.1-1.2) X10*3/uL Eos # (Auto) 0.2 (0.0-0.4) X10*3/uL Baso # (Auto) 0.0 (0.0-0.2) X10*3/uL Abs Immat Gran (auto) 0.02 (0.00-0.03) X10*3/uL Absolute Neuts (auto) 4.7 (2.0-8.3) x10*3/uL Absolute Nucleated RBC 0.000 (0.0-0.012) X10*3/uL Nucleated RBC % (auto) 0.0 (0.0-0.2) /100WBC O2 Saturation 95.0 % ABG pH at Pt Temp 7.36 (7.35-7.45) ABG pCO2 at Pt Temp 69 H* (32-45) mmHg ABG pO2 at Pt Temp 73 L (83-108) mmHg ABG HCO3 39 H (22-26) mmol/L ABG Base Excess (Actual) 11.3 mmol/L VBG pH 7.38 (7.32-7.43) VBG pCO2 54 mmHg VBG pO2 175 mmHg VBG HCO3 32 H (22-26) mmol/L VBG O2 Saturation 100.0 % VBG Base Excess 6.1 mmol/L Sodium 145 (135-145) mmol/L Potassium 3.7 (3.3-5.1) mmol/L Chloride 104 (96-108) mmol/L Carbon Dioxide 32 H (22-29) mmol/L Anion Gap 13 (12-20) BUN 15 (9-16) mg/dL Creatinine 0.73 (0.5-1.4) mg/dL Estim Creat Clear Calc 83.0 Estimated GFR > 60 Random Glucose 160 H (60-115) mg/dL Calcium 9.5 (8.4-10.2) mg/dL Magnesium 2.1 (1.6-2.6) mg/dL Total Bilirubin 0.2 (0.0-1.0) mg/dL AST 27 (5-31) U/L ALT 18 (0-31) U/L Alkaline Phosphatase 63 (39-117) U/L Troponin I High Sens 10.8 D (<3.5-17.0) ng/L NT-Pro-B Natriuret Pep 115.5 (<300) pg/mL Total Protein 7.1 (6.5-8.0) g/dL Albumin 4.0 (3.5-5.0) g/dL Independent Interpretation I performed an independent interpretation of an: EKG (EKG shows sinus rhythm with a rate of 88, no evidence of acute ischemia, no ST elevation, no ectopy. QTC 447, compared to previous on 03/13/2025 there are no significant morphology changes.) Radiology Impression Discussion of test interpretation with radiology: I have reviewed the radiologist's reading. Radiologist Impression: 1 view chest x-ray Comparison: CR/SR - XR CHEST 1V - 03/13/25 07:34 EDT Findings: The lungs are clear. Normal size heart. No acute fracture. IMPRESSION: 1. No acute findings. This document has been electronically signed by: Franco Gonzalez MD on 04/08/2025 02:49:04 Critical Care Time Critical Care Time Critical Care Time: Yes Total Critical Care Time: 35 Attestation: Critical Care: The patient was critically ill with a high probability of imminent or life threatening deterioration. I spent greater than 30 minutes of discontinuous time evaluating the patient,delivering critical care at the bedside, discussing and evaluating pertinent data with consultants. Critical care time does not include time spent performing separately billable procedures or teaching. Total time spent performing critical care was 35 minutes. Discharge Plan Discharge Clinical Impression: Acute on chronic respiratory failure with hypoxia and hypercapnia Print Language: Moldovan
--- OUTSIDE RECORDS SUMMARY | 2025-04-08 02:31 | XMS_ITS | Encounter Summary ---
Author Organization [facility] Address [address] [place] [phone] Phone Care Team Providers Care Fruit Trimmer Name Role Phone Jn Cardoza MD Unavailable Denys Henriquez MD Unavailable Antione Segura PA-C Primary Care Provider Rhett Cortez MD Unavailable Encounter Details Date Type Department Care Team (Late st Contact Info) Description 03/28/2025 Procedure Pass [facility], Ct Scan - [address] [address] Social History Tobacco Use Types Packs/Day Years [...] high school, GED, job training, learning the Libyan language, technical skills, or developing parenting skills)? [...] 3:00 PM EDT Home Care Visit [facility] [address] [place] [phone] Kennedy, Thao L [address] [place] [address] 04/12/2025 1:30 AM EDT Home Care Visit [facility] [address] [place] [phone] Shakira Hand RN [address] [place] [address] 04/12/2025 3:00 PM EDT Home Care Visit [facility] [address] [place] [phone] Knenedy, Thao L [address] [place] [address] 04/16/2025 3:00 PM EST Home Care Visit [facility] [address] [place] [phone] Kennedy, Thao L [address] [place] [phone] 04/18/2025 1:30 AM EST Home Care Visit [facility] [address] [place] [phone] Shakira Hand, HUA [address] [place] [address] 04/19/2025 2:00 AM EST Home Care Visit [facility] [address] [place] [phone] Kennedy, Thao L [address] [place] [address] 04/23/2025 2:00 AM EST Home Care Visit [facility] [address] [place] [phone] Thao Kennedy [address] [place] [address] 04/24/2025 9:40 AM EST Office Visit [facility] Internal Medicine [address] [place] [address] Antione Segura PA-C [address] [place] [address] 04/25/2025 1:30 AM EST Appointment [facility] [address] [place], [place] [phone] Shakira Hand RN [address] [place] [phone] 06/25/2025 9:30 AM EST Telemedicine [facility] Neurology [address] [place] [address] Jn Cardoza MD 22 [facility], [address]nd [place] [address] documented as of this encounter Visit Diagnoses Not on filedocumented in this encounter Additional Health Concerns Assessment Noted Time PHQ-9 Depression Total Score: 23 025 3:04 PM EDT PHQ-2 Depression Total Score: 5 03/21/20 25 3:04 PM EDT documented as of this encounter Care Teams Fruit Trimmer Relationship Specialty Start Date End Date Antinoe Segura PA-C [address] [place] [address] PCP - General Physician Site Safety Coordinator 10/12/24 Jn Cardoza MD 22 [facility], [address] [place] [address] [email or web address] Neurology 02/03/24 Denys Henriquez MD [address] [place] [address] [place] [address] Pulmonary Disease 02/03/24 Rhett Cortez MD [address] [place] [phone] [email or web address] Insurance Assigned Provider 01/20/25 documented as of this encounter Additional Source Comments The information contained in this document represents components of the legal health record. It is not the complete legal health record.[facility]
--- OUTSIDE RECORDS SUMMARY | 2025-04-08 02:31 | XMS_ITS | Encounter Summary ---
Author Organization [facility] Address [address] [place] [address] Phone Care Team Providers Care Investigator Vice Name Role Phone Lang Germain MD Unavailable Jennifer Duke LOAN EXAMINER Primary Care Provider Sirisha Huertas VENEER MARKER Primary Care Provider Jn Cardoza MD Unavailable Denys Henriquez MD Unavailable Liyah Patterson MD Unavailable Liyah Patterson MD Primary Care Provider [phone] Antione Segura PA-C Primary Care Provider Rhett Cortez MD Unavailable Encounter Details Date Type Department Care Team (Late st Contact Info) Description 11/27/2021 Procedure Pass [facility], [address] [place] [address] Social History Tobacco Use Types Packs/Day Years Used Date Smoking Tobacco: Every Day Cigarettes 1 43.4 Started: 11/25/1981 Smokeless Tobacco: Never Alcohol Use [...] 04/09/2025 3:00 PM EDT Home [facility] Visit [facility] [address] [place] [phone] Kennedy, Thao L [address] [place] [address] 04/12/2025 1:30 AM EDT Home Care Visit [facility] [address] [place] [phone] Shakira Hand, RN [address] [place] [address] 04/12/2025 3:00 PM EDT Home Care Visit [facility] [address] [place] [phone] Kennedy, Thao L [address] [place] [address] 04/16/2025 3:00 PM EST Home Care Visit [facility] [address] [place] [phone] Kennedy, Thao L [address] [place] [address] 04/18/2025 1:30 AM EST Home Care Visit [facility] [address] [place] [phone] Shakira Hand, HUA [address] [place] [address] 04/19/2025 2:00 AM EST Home Care Visit [facility] [address] [place] [phone] Kennedy, Thao L [address] [place] [address] 04/23/2025 2:00 AM EST Home Care Visit [facility] [address] [place] [phone] Kennedy, Thao L [address] [place] [address] 04/24/2025 9:40 AM EST Office Visit [facility] Internal Medicine [address] [place] [address] Antione Segura PA-C 40 [place] [address] 04/25/2025 1:30 AM EST Appointment [facility] [address] [place] [address] Shakira Hand RN [address] [place] [address] 06/25/2025 9:30 AM EST Telemedicine [facility] Neurology [address] [place] [address] Jn Cardoza MD [address] [place] [address], 2nd [place] [address] documented as of this encounter Visit Diagnoses Not on filedocumented in this encounter Additional Health Concerns Assessment Noted Time PHQ-2 Depression Total Score: 0 05/25/20 19 9:02 AM EST documented as of this encounter Care Teams Investigator Vice Relationship Specialty Start Date End Date Jennifer Duke, LOAN EXAMINER [address] [place] [address] [email or web address] PCP - General Family Medicine 01/31/20 06/22/23 Sirisha Huertas, VENEER MARKER [address] [place] [address] [email or web address] PCP - General Nurse Practitioner 06/23/23 08/03/24 Liyah Patterson MD [address] [place] [address] [email or web address] PCP - General Family Medicine 08/04/24 10/11/24 Antione Segura PA-C [address] [place] [address] [email or web address] PCP - General Physician Asbestos Microscopist 10/12/24 Lang Germain MD [address] [place] [address] [email or web address] Insurance Assigned Provider 09/18/23 02/19/24 Jn Cardoza MD [address] [place] [address], 2nd [place] [address] [email or web address] Neurology 02/03/24 Denys Henriquez MD [address] [place] [address] [place] [address] Pulmonary Disease 02/03/24 Liyah Patterson MD [address] [place] [address] [email or web address] Insurance Assigned Provider 02/19/24 01/20/25 Rhett Cortez MD [address] [place] [address] [email or web address] Insurance Assigned Provider 01/20/25 documented as of this encounter Additional Source Comments The information contained in this document represents components of the legal health record. It is not the complete legal health record.[facility]
--- OUTSIDE RECORDS SUMMARY | 2025-04-08 02:31 | XMS_ITS | Encounter Summary ---
Author Organization [facility] Address [address] [place] [address] Phone Care Team Providers Care Electrician Technician Name Role Phone Lang Germani MD Unavailable Jennifer Duke REHEATER HELPER Primary Care Provider Sirisha Huertas TOURIST HOME KEEPER Primary Care Provider [phone] Jn Cardoza MD Unavailable Denys Henriquez MD Unavailable Liyah Patterson MD Unavailable Liyah Patterson MD Primary Care Provider [phone] Antione Segura PA-C Primary Care Provider Rhett Cortez MD Unavailable Encounter Details Date Type Department Care Team (Late st Contact Info) Description 02/25/2023 Procedure Pass [facility], [address] [address] Social History Tobacco Use Types Packs/Day Years Used Date Smoking Tobacco: Every Day Cigarettes 0.8 43.4 Started: 11/25/1981 Passive Smoke Exposure: Never Smokeless [...] 3:00 PM EDT Home Care Visit [facility] [address] [place] [phone] Kennedy, Thao L [address] [place] [address] 04/12/2025 1:30 AM EDT Home Care Visit [facility] [address] [place] [phone] Shakira Hand RN [address] [place] [address] 04/12/2025 3:00 PM EDT Home Care Visit [facility] [address] [place] [phone] Kennedy, Thao L [address] [place] [address] 04/16/2025 3:00 PM EST Home Care Visit [facility] [address] [place] [phone] Kennedy, Thao L [address] [place] [address] 04/18/2025 1:30 AM EST Home Care Visit [facility] [address] [place] [phone] Shakira Hand, HUA [address] [place] [address] 04/19/2025 2:00 AM EST Home Care Visit [facility] [address] [place] [phone] Thao Kennedy 30 [place] [address] 04/23/2025 2:00 AM EST Home [facility] [address] [place] [phone] Thao Kennedy 30 [place] [address] 04/24/2025 9:40 AM EST Office Visit [facility] Internal Medicine 40 [place] [address] Antione Segura PA-C 40 [place] [address] 04/25/2025 1:30 AM EST Appointment [facility] [address] [place] [phone] Shakira Hand RN [address] [place] [address] 06/25/2025 9:30 AM EST Telemedicine [facility] Neurology [address] [place] [address] Jn Cardoza MD [address] [place] [address], 2nd [place] [address] documented as of this encounter Visit Diagnoses Not on filedocumented in this encounter Additional Health Concerns Assessment Noted Time PHQ-9 Depression Total Score: 21 023 12:35 PM EDT PHQ-2 Depression Total Score: 2 02/19/20 23 6:55 PM EDT documented as of this encounter Care Teams Electrician Technician Relationship Specialty Start Date End Date Jennifer Duke, REHEATER HELPER [address] [place] [address] [email or web address] PCP - General Family Medicine 01/31/20 06/22/23 Sirisha Huertas FNP [address] [place] [address] [email or web address] PCP - General Nurse Practitioner 06/23/23 08/03/24 Liyah Patterson MD [address] [place] [address] [email or web address] PCP - General Family Medicine 08/04/24 10/11/24 Antione Segura PA-C [address] [place] [address] [email or web address] PCP - General Physician Setter [employer] 10/12/24 Lang Germain MD [address] [place] [address] [email or web address] Insurance Assigned Provider 09/18/23 02/19/24 Jn Cardoza MD [address] [place] [address], 2nd [place] [address] [email or web address] Neurology 02/03/24 Denys Henriquez MD [address] [place] [address] [place] [address] Pulmonary Disease 02/03/24 Liyah Patterson MD [address] [place] [address] Insurance Assigned Provider 02/19/24 01/20/25 Rhett Cortez MD [address] [place] [address] [email or web address] Insurance Assigned Provider 01/20/25 documented as of this encounter Additional Source Comments The information contained in this document represents components of the legal health record. It is not the complete legal health record.[facility]
--- OUTSIDE RECORDS SUMMARY | 2025-04-08 02:31 | XMS_ITS | Encounter Summary ---
Author Organization [facility] Address [address] [place] [address] Phone Care Team Providers Care Warp Tying Machine Knotter Name Role Phone Charbel Webber MD Unavailable Alverto Gandara MD Unavailable Maikel Rawls MD Unavailable [phone] Jennifer Duke SHEARING MACHINE TENDER Primary Care Provider Lang Germain MD Primary Care Provider Jennifer Duke SHEARING MACHINE TENDER Primary Care Provider Lang Germain MD Unavailable Lang Germain MD Primary Care Provider Jennifer Duke SHEARING MACHINE TENDER Primary Care Provider Lang Germain MD Primary Care Provider Jennifer Duke SHEARING MACHINE TENDER Primary Care Provider Lang Germain MD Primary Care Provider Jennifer Duke SHEARING MACHINE TENDER Primary Care Provider Lang Germain MD Primary Care Provider [place], Jennifer L SHEARING MACHINE TENDER Unavailable [phone] Jennifer Duke SHEARING MACHINE TENDER Primary Care Provider [phone] Lang Germain MD Primary Care Provider [phone] Jennifer Duke SHEARING MACHINE TENDER Primary Care Provider [phone] Sirisha Huertas PLANT PRODUCTION WORKER Primary Care Provider [phone] Jn Cardoza MD Unavailable Denys Henriquez MD Unavailable [phone] Liyah Patterson MD Unavailable Liyah Patterson MD Primary Care Provider [phone] Antione Segura PA-C Primary Care Provider [phone] Rhett Cortez MD Unavailable Encounter Details Date Type Department Care Team (Late st Contact Info) Description 09/13/2018 Procedure Pass [facility], [address] [address] Social History Tobacco Use Types Packs/Day Years [...] 04/09/2025 3:00 PM EDT Home Care Visit [facility] [address] [place] [phone] Thao Kennedy [address] [place] [address] 04/12/2025 1:30 AM EDT Home Care Visit [facility] [address] [place] [phone] Shakira Hand, HUA [address] [place] [address] [email or web address] 04/12/2025 3:00 PM EDT Home Care Visit [facility] [address] [place] [phone] Kennedy, Thao L [address] [place] [address] [email or web address] 04/16/2025 3:00 PM EST Home Care Visit [facility] [address] [place] [phone] Kennedy, Thao L [address] [place] [address] [email or web address] 04/18/2025 1:30 AM EST Home Care Visit [facility] [address] [place] [phone] Shakira Hand, HUA [address] [place] [address] [email or web address] 04/19/2025 2:00 AM EST Home Care Visit [facility] [address] [place] [phone] Kennedy, Thao L [address] [place] [address] [email or web address] 04/23/2025 2:00 AM EST Home Care Visit [facility] [address] [place] [phone] Kennedy, Thao L [address] [place] [address] [email or web address] 04/24/2025 9:40 AM EST Office Visit [facility] [place] Internal Medicine 40 [place] [address] Antione Segura PA-C 40 [place] [address] [email or web address] 04/25/2025 1:30 AM EST Appointment [facility] [address] [place] [phone] Shakira Hand RN [address] [place] [address] [email or web address] 06/25/2025 9:30 AM EST Telemedicine [facility] Neurology [address] [place] [address] Jn Cardoza MD [address] [facility], 2nd [place] [address] [email or web address] documented as of this encounter Visit Diagnoses Not on filedocumented in this encounter Additional Health Concerns Assessment Noted Time PHQ-2 Depression Total Score: 0 08/20/19 9:13 AM EST documented as of this encounter Care Teams Warp Tying Machine Knotter Relationship Specialty Start Date End Date Jennifer Duke NP [address] [place] [address] [email or web address] PCP - General Family Medicine 09/08/18 09/14/18 Lang Germain MD [address] [place] [address] [email or web address] PCP - General Internal Medicine 09/15/18 10/02/18 Jennifer Duke NP [address] [place] [address] [email or web address] PCP - General Family Medicine 10/03/18 10/05/18 Lang Germain MD [address] [place] [address] PCP - General Internal Medicine 10/06/18 10/12/18 Jennifer Duke NP [address] [address] PCP - General Family Medicine 10/13/18 11/09/18 Lang Germain MD [address] [place] [address] [email or web address] PCP - General Internal Medicine 11/10/18 11/22/18 Jennifer Duke NP [address] [place] [address] PCP - General Family Medicine 11/23/18 11/30/18 Lang Germain MD [address] [place] [address] PCP - General Internal Medicine 12/01/18 12/13/18 Jennifer Duke NP [address] [place] [address] PCP - General Family Medicine 12/14/18 11/12/19 Lang Germain MD [address] [place] [address] PCP - General Internal Medicine 11/13/19 12/03/19 Jennifer Duke NP [address] [address] [email or web address] PCP - General Family Medicine 12/04/19 01/23/20 Lang Germain MD [address] [place] [address] [email or web address] PCP - General Internal Medicine 01/24/20 01/30/20 Jennifer Duke, [place] [address] [place] [address] [email or web address] PCP - General Family Medicine 01/31/20 06/22/23 Sirisha Huertas, [facility] [address] [place] [address] [email or web address] PCP - General Nurse Practitioner 06/23/23 08/03/24 Liyah Patterson MD [address] [place] [address] [email or web address] PCP - General Family Medicine 08/04/24 10/11/24 Antione Segura PA-C [address] [place] [address] [email or web address] PCP - General Physician Manager [employer] 10/12/24 Charbel Webber MD [address] [place] [address], [facility] [address] [place] [address] [email or web address] Historical LMR Provider 04/01/17 0 Alverto Gandara MD [address] [address] [email or web address] Historical LMR Provider 04/01/17 12/03/19 Maikel Rawls MD [address] [address] [email or web address] Historical LMR Provider 04/01/17 6 Lang Germain MD [address] [place] [address] [email or web address] Insurance Assigned Provider 09/18/23 02/19/24 Jennifer Duke NP [address] [address] [email or web address] Nurse Practitioner Family Medicine 11/13/19 01/30/20 Jn Cardoza MD [address] [address] [email or web address] Neurology 02/03/24 Denys Henriquez MD [address] [place] [address] [place] [address] Pulmonary Disease 02/03/24 Liyah Patterson MD [address] [address] [email or web address] Insurance Assigned Provider 02/19/24 01/20/25 Rhett Cortez MD [address] [place] [address] Insurance Assigned Provider 01/20/25 documented as of this encounter Additional Source Comments The information contained in this document represents components of the legal health record. It is not the complete legal health record.[facility]
--- OUTSIDE RECORDS SUMMARY | 2025-04-08 02:31 | XMS_ITS | Encounter Summary ---
Author Organization [facility] Address [address] [place] [address] Phone Care Team Providers Care Road Worker Name Role Phone Lang Germain MD Unavailable [phone] Jennifer Duke GLOBAL CHIEF EXPERIENCE OFFICER Primary Care Provider Sirisha Huertas GROUP PRACTICE PEDIATRICIAN Primary Care Provider Jn Cardoza MD Unavailable Denys Henriquez MD Unavailable Liyah Patterson MD Unavailable Liyah Patterson MD Primary Care Provider [phone] Antione Segura PA-C Primary Care Provider Rhett Cortez MD Unavailable Encounter Details Date Type Department Care Team (Late st Contact Info) Description 09/01/2021 Procedure Pass [facility], [address] [address] Social History Tobacco Use Types Packs/Day Years [...] Visit [facility] [address] [place] [phone] Kennedy, Thao L [address] [place] [address] 04/12/2025 1:30 AM EDT Home Care Visit [facility] [address] [place] [phone] Shakira Hand RN [address] [place] [address] 04/12/2025 3:00 PM EDT Home Care Visit [facility] [address] [place] [phone] Kennedy, Thao L [address] [place] [address] 04/16/2025 3:00 PM EST Home Care Visit [facility] [address] [place] [phone] Kennedy, Thao L [address] [place] [address] 04/18/2025 1:30 AM EST Home Care Visit [facility] [address] [place] [phone] Shakira Hand RN [address] [place] [address] 04/19/2025 2:00 AM EST Home Care Visit [facility] 30 [place] [address] Thao Kennedy 30 [place] [address] 04/23/2025 2:00 AM EST Home [facility] [address] [place] [address] Thao Kennedy 30 [place] [address] 04/24/2025 9:40 AM EST Office Visit [facility] Internal Medicine 40 [place] [address] Antione Segura PA-C 40 [place] [address] 04/25/2025 1:30 AM EST Appointment [facility] [address] [place] [phone] Shakira Hand RN [address] [place] [address] 06/25/2025 9:30 AM EST Telemedicine [facility] Neurology [address] [place] [address] Jn Cardoza MD [address] [place] [address], 2nd [place] [address] documented as of this encounter Visit Diagnoses Not on filedocumented in this encounter Additional Health Concerns Assessment Noted Time PHQ-2 Depression Total Score: 0 05/25/20 19 9:02 AM EST documented as of this encounter Care Teams Road Worker Relationship Specialty Start Date End Date Jennifer Duke, [place] [address] [place] [address] [email or web address] PCP - General Family Medicine 01/31/20 06/22/23 Sirisha Huertas FNP [address] [place] [address] [email or web address] PCP - General Nurse Practitioner 06/23/23 08/03/24 Liyah Patterson MD [address] [place] [address] [email or web address] PCP - General Family Medicine 08/04/24 10/11/24 Antione Segura PA-C [address] [place] [address] [email or web address] PCP - General Physician Roustabout Crew 10/12/24 Lang Germain MD [address] [place] [address] [email or web address] Insurance Assigned Provider 09/18/23 02/19/24 Jn Cardoza MD [address] [place] [address], 2nd [place] [address] [email or web address] Neurology 02/03/24 Denys Henriquez MD [address] [place] [address] [place] [address] Pulmonary Disease 02/03/24 Liyah Patterson MD [address] [place] [address] [email or web address] Insurance Assigned Provider 02/19/24 01/20/25 Rhett Cortez MD [address] [place] [address] [email or web address] Insurance Assigned Provider 01/20/25 documented as of this encounter Additional Source Comments The information contained in this document represents components of the legal health record. It is not the complete legal health record.[facility]
--- OUTSIDE RECORDS SUMMARY | 2025-04-08 02:31 | XMS_ITS | Encounter Summary ---
Author Organization [facility] Address [address] [address] Phone Care Team Providers Care Pet Technologist Name Role Phone Jn Cardoza MD Unavailable Denys Henriquez MD Unavailable [phone] Antione Segura PA-C Primary Care Provider Rhett Cortez MD Unavailable Encounter Details Date Type Department Care Team (Late st Contact Info) Description 04/04/2025 Episode Documentatio n Update [facility] [address] [place] [phone] Margy Rubalcava [address] [place] [address] [email or web address] Social History Tobacco Use Types Packs/Day Years [...] high school, GED, job training, learning the Brune[place] language, technical skills, or developing parenting skills)? [...] Care Visit [facility] [address] [place] [phone] Kennedy, Thao L [address] [place] [address] [email or web address] 04/12/2025 1:30 AM EDT Home Care Visit [facility] [address] [place] [phone] Shakira Hand RN [address] [place] [address] [email or web address] 04/12/2025 3:00 PM EDT Home Care Visit [facility] [address] [place] [phone] Kennedy, Thao L [address] [place] [address] [email or web address] 04/16/2025 3:00 PM EST Home Care Visit [facility] [address] [place] [phone] Kennedy, Thao L [address] [place] [address] [email or web address] 04/18/2025 1:30 AM EST Home Care Visit [facility] [address] [place] [phone] Shakira Hand, HUA [address] [place] [address] [email or web address] 04/19/2025 2:00 AM EST Home Care Visit [facility] [address] [place] [phone] Thao Kennedy L [address] [place] [address] 04/23/2025 2:00 AM EST Home Care Visit [facility] [address] [place] [phone] Thao Kennedy [address] [place] [address] 04/24/2025 9:40 AM EST Office Visit [facility] Internal Medicine [address] [place] [address] Antione Segura PA-C [address] [place] [address] 04/25/2025 1:30 AM EST Appointment [facility] [address] [place] [phone] Shakira Hand RN [address] [place] [address] 06/25/2025 9:30 AM EST Telemedicine [facility] Neurology [address] [place] [address] Jn Cardoza MD [address] [place] [address], [address] [place] [address] documented as of this encounter Visit Diagnoses Not on filedocumented in this encounter Additional Health Concerns Assessment Noted Time PHQ-9 Depression Total Score: 23 025 3:04 PM EDT PHQ-2 Depression Total Score: 5 03/21/20 25 3:04 PM EDT documented as of this encounter Care Teams Pet Technologist Relationship Specialty Start Date End Date Antione Segura PA-C [address] [place] [address] [email or web address] PCP - General Physician Research Nurse 10/12/24 Jn Cardoza MD [address] [facility], 2nd [place] [address] [email or web address] Neurology 02/03/24 Denys Henriquez MD [address] [place] [address] [place] [address] Pulmonary Disease 02/03/24 Rhett Cortez MD [address] [place] [address] [email or web address] Insurance Assigned Provider 01/20/25 documented as of this encounter Additional Source Comments The information contained in this document represents components of the legal health record. It is not the complete legal health record.[facility]
--- OUTSIDE RECORDS SUMMARY | 2025-04-08 02:31 | XMS_ITS | Encounter Summary ---
Author Organization [facility] Address [address] [place] [address] Phone Care Team Providers Care Epidemiology Intern Name Role Phone Jn Cardoza MD Unavailable Denys Henriquez MD Unavailable Antione Segura PA-C Primary Care Provider Rhett Cortez MD Unavailable Reason for Visit * Reason Onset Date Comments PFT 01/24/2025 Encounter Details Date Type Department Care Team (Late st Contact Info) Description 01/24/2025 Telephone [facility] Internal Medicine [address] [place], [place] [phone] Antione Segura PA-C 40 [place] [address] [email or web address] PFT Social History Tobacco [...] high school, GED, job training, learning the Northern [place] language, technical skills, or developing parenting [...] of Facility fax is being sent to: [facility] pulmonary Document(s) requested:all PFT testing with Graph[employer] and [facility] [employer] [facility] Call Center CSS Agent (Please do not reply to this user, as this inbox is not monitored. Thank you.) Thank you. documented in this encounter Plan of Treatment Upcoming Encounters Date Type Department Care Team (Late st Contact Info) Description 04/09/2025 3:00 PM EDT Home Care [facility] [address] [place] [address] Thao Kennedy [address] [place] [address] 04/12/2025 1:30 AM EDT Home Care Visit [facility] [address] [place] [address] Shakira Hand RN [address] [place] [address] [email or web address] 04/12/2025 3:00 PM EDT Home Care Visit [facility] [address] [place] [address] Kennedy, Thao L 30 [place] [address] 04/16/2025 3:00 PM EST Home Care Visit [facility] [address] [place] [phone] Kennedy, Thao L 30 [place] [address] 04/18/2025 1:30 AM EST Home Care Visit [facility] [address] [place] [address] Shakira Hand RN [address] [employer] [address] 04/19/2025 2:00 AM EST Home Care Visit [facility] [address] [place] [address] Kennedy, Thao L [address] [place] [address] 04/23/2025 2:00 AM EST Home Care Visit [facility] [address] [place] [address] Kennedy, Thao L [address] [place] [address] 04/24/2025 9:40 AM EST Office Visit [facility] Internal Medicine [address] [place] [address] Antione Segura PA-C 40 [place] [address] [email or web address] 04/25/2025 1:30 AM EST Appointment [facility] [address] [place] [address] Shakira Hand RN 168 [place] [address] 06/25/2025 9:30 AM EST Telemedicine [facility] [place] [address] Jn Cardoza MD [address] [place] [address] documented as of this encounter Visit Diagnoses Not on filedocumented in this encounter Additional Health Concerns Assessment Noted Time PHQ-9 Depression Total Score: 025 9:08 PM EDT PHQ-2 Depression Total Score: 12/28/19 25 9:08 PM EDT documented as of this encounter Care Teams Epidemiology Intern Relationship Specialty Start Date End Date Antione Segura PA-C 40 [place] [address] PCP - General Physician Telephone Messenger 10/12/24 Jn Cardoza MD [address] [place] [address] Neurology 02/03/24 Denys Henriquez MD [address] [place] [address] [place] [address] Pulmonary Disease 02/03/24 Rhett Cortez MD 40 [place] [address] Insurance Assigned Provider 01/20/25 documented as of this encounter Additional Source Comments The information contained in this document represents components of the legal health record. It is not the complete legal health record.[facility]
--- OUTSIDE RECORDS SUMMARY | 2025-04-08 02:31 | XMS_ITS | Clinical Summary ---
Author Organization [facility] Address [address] [id number] Care Team Providers Care Boiler Tenders Supervisor Name Role Phone Antione Segura Primary Care Provider [phone] Allergies Active Allergy Reactions Criticality Noted Date [...] Type Department Care Team Description 01/29/2025 Telephone [facility] [address] [place] [address] Buttonhole Maker: Federico Hill Telephone Intake, Staff PAC Order Request; Dr. 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 Procedure Name Priority Date/Time Associated Diagnosis Comments LAB - SCANNED 01/10/[address] CHEST, OUTSI DE RESULT 11/30/2024 from Last 3 Months or Most Recently Relevant to Health Maintenance Results * Due to [place] state law, this organization might not be sharing negative HIV tests. * LAB - SCANNED (01/10/2025) us Onbase Scan [facility] LAB HISTORICAL RESULTS Final Result * CT Chest, Outside Result (11/30/2024) Anatomical Region Laterality Modality Other 11/30/2024 us Onbase Scan [facility] AMB EXTERNAL RESULT PROCEDURE S Final Result from Last 3 Months or Most Recently Relevant to Health Maintenance Insurance [facility] HMO/POS Care Teams Boiler Tenders Supervisor Relationship Specialty Start Date End Date Antione Segura PA [address] [place] [address] PCP - General Emergency Medicine 01/10/25
--- OUTSIDE RECORDS SUMMARY | 2025-04-08 02:31 | XMS_ITS | Encounter Summary ---
Author Organization [facility] Address [address] [address] Phone Care Team Providers Care Hairspring Truing Inspector Name Role Phone Jn Cardoza MD Unavailable Denys Henriquez MD Unavailable Liyah Patterson MD Unavailable Antione Segura-C Primary Care Provider Rhett Cortez MD Unavailable Encounter Details Date Type Department Care Team (Late st Contact Info) Description 12/06/2024 Home Health Resumption of Care Planning [facility] [address] [place] [address] Diana Torres, RN [address] [place] [address] [email or web address] Social History Tobacco Use Types Packs/Day Years [...] Care Visit [facility] [address] [place] [phone] Kennedy, Thao L [address] [place] [address] 04/12/2025 1:30 AM EDT Home Care Visit [facility] [address] [place] [phone] Shakira Hand RN [address] [place] [address] 04/12/2025 3:00 PM EDT Home Care Visit [facility] [address] [place] [phone] Kennedy, Thao L [address] [place] [address] 04/16/2025 3:00 PM EST Home Care Visit [facility] [address] [place] [phone] Kennedy, Thao L [address] [place] [address] 04/18/2025 1:30 AM EST Home Care Visit [facility] [address] [place] [phone] Shakira Hand RN [address] [place] [address] 04/19/2025 2:00 AM EST Home Care Visit [facility] [address] [place] [address] Kennedy, Thao L 30 [place] [address] 04/23/2025 2:00 AM EST Home Care Visit [facility] [address] [place] [address] Kennedy, Thao L 30 [place] [address] 04/24/2025 9:40 AM EST Office Visit [facility] Internal Medicine 40 [place] [address] Antione Segura PA-C 40 [place] [address] [email or web address] 04/25/2025 1:30 AM EST Appointment [facility] [address] [place] [address] Shakira Hand, HUA 168 [place] [address] 06/25/2025 9:30 AM EST Telemedicine [facility] Neurology [address] [place] [address] Jn Cardoza MD [address] [facility], 2nd [place] [address] documented as of this encounter Visit Diagnoses Not on filedocumented in this encounter Additional Health Concerns Assessment Noted Time PHQ-9 Depression Total Score: 21 025 12:31 PM EDT PHQ-2 Depression Total Score: 6 10/13/19 25 12:31 PM EDT documented as of this encounter Care Teams Hairspring Truing Inspector Relationship Specialty Start Date End Date Antione Segura PA-C 40 [place] [address] PCP - General Physician Family Mediator 10/12/24 Jn Cardoza MD [address] [facility], 2nd [place] [address] Neurology 02/03/24 Denys Henriquez MD [address] [place] [address] [place] [address] Pulmonary Disease 02/03/24 Liyah Patterson MD [address] [facility] [address]hash. [address] [place] [address] [email or web address] Insurance Assigned Provider 02/19/24 01/20/25 Rhett Cortez MD 40 [place] [address] Insurance Assigned Provider 01/20/25 documented as of this encounter Additional Source Comments The information contained in this document represents components of the legal health record. It is not the complete legal health record.[facility]
--- OUTSIDE RECORDS SUMMARY | 2025-04-08 02:31 | XMS_ITS | Encounter Summary ---
Author Organization [facility] Address [address] [place] [address] Phone Care Team Providers Care Survey Research Analyst Name Role Phone Lang Germain MD Unavailable Jennifer Duke CIRCUS ROUSTABOUT Primary Care Provider Sirisha Huertas BUILDER OPERATOR Primary Care Provider Jn Cardoza MD Unavailable Denys Henriquez MD Unavailable [phone] Liyah Patterson MD Unavailable Liyah Patterson MD Primary Care Provider [phone] Antione Segura PA-C Primary Care Provider [phone] Rhett Cortez MD Unavailable Encounter Details Date Type Department Care Team (Late st Contact Info) Description 06/30/2022 Procedure Pass [facility], Ct Scan - [address] [address] Social History Tobacco Use Types Packs/Day Years Used Date Smoking Tobacco: Every Day Cigarettes 0.8 43.4 Started: 11/25/1981 Smokeless Tobacco: Never Alcohol [...] 3:00 PM EDT Home Care Visit [facility] [address] [place] [phone] Kennedy, Thao L [address] [place] [address] [email or web address] 04/12/2025 1:30 AM EDT Home Care Visit [facility] [address] [place] [phone] Shakira Hand RN [address] [place] [address] [email or web address] 04/12/2025 3:00 PM EDT Home Care Visit [facility] [address] [place] [phone] Kennedy, Thao L [address] [place] [address] [email or web address] 04/16/2025 3:00 PM EST Home Care Visit [facility] [address] [place] [phone] Kennedy, Thao L [address] [place] [address] [email or web address] 04/18/2025 1:30 AM EST Home Care Visit [facility] [address] [place] [phone] Shakira Hand RN [address] [place] [address] [email or web address] 04/19/2025 2:00 AM EST Home Care Visit [facility] 30 [place] [address] Thao Kennedy L 30 [place] [address] 04/23/2025 2:00 AM EST Home Care Visit [facility] [address] [place] [address] Thao Kennedy 30 [place] [address] 04/24/2025 9:40 AM EST Office Visit [facility] Internal Medicine 40 [place] [address] Antione Segura PA-C 40 [place] [address] 04/25/2025 1:30 AM EST Appointment [facility] [address] [place] [phone] Shakira Hand RN [address] [place] [address] 06/25/2025 9:30 AM EST Telemedicine [facility] Neurology [address] [place] [address] Jn Cardoza MD [address] [place] [address], 2nd [place] [address] documented as of this encounter Visit Diagnoses Not on filedocumented in this encounter Additional Health Concerns Assessment Noted Time PHQ-9 Depression Total Score: 18 023 8:53 AM EST PHQ-2 Depression Total Score: 6 06/26/19 23 8:53 AM EST documented as of this encounter Care Teams Survey Research Analyst Relationship Specialty Start Date End Date Jennifer Duke, CIRCUS ROUSTABOUT [address] [place] [address] [email or web address] PCP - General Family Medicine 01/31/20 06/22/23 Sirisha Huertas, BUILDER OPERATOR [address] [place] [address] [email or web address] PCP - General Nurse Practitioner 06/23/23 08/03/24 Liyah Patterson MD [address] [place] [address] [email or web address] PCP - General Family Medicine 08/04/24 10/11/24 Antione Segura PA-C [address] [place] [phone] [email or web address] PCP - General Physician Railroad Brakeman 10/12/24 Lang Germain MD [address] [place] [address] [email or web address] Insurance Assigned Provider 09/18/23 02/19/24 Jn Cardoza MD [address] [place] [address], 2nd [place] [address] [email or web address] Neurology 02/03/24 Denys Henriquez MD [address] [place] [address] [place] [address] Pulmonary Disease 02/03/24 Liyah Patterson MD [address] [place] [address] [email or web address] Insurance Assigned Provider 02/19/24 01/20/25 Rhett Cortez MD [address] [place] [address] [email or web address] Insurance Assigned Provider 01/20/25 documented as of this encounter Additional Source Comments The information contained in this document represents components of the legal health record. It is not the complete legal health record.[facility]
--- OUTSIDE RECORDS SUMMARY | 2025-04-08 02:31 | XMS_ITS | Encounter Summary ---
Author Organization [facility] Address [address] [address] Phone Care Team Providers Care Associate Account Manager Name Role Phone Jn Cardoza MD Unavailable Denys Henriquez MD Unavailable Antione Segura PA-C Primary Care Provider [phone] Rhett Cortez MD Unavailable Encounter Details Date Type Department Care Team (Late st Contact Info) Description 02/09/2025 Home Health Resumption of Care Planning [facility] [address] [place] [phone] Koki Simons RN [address] [place] [address] [email or web address] Social [...] Care Visit [facility] [address] [place] [phone] Kennedy, Thao L [address] [place] [address] 04/12/2025 1:30 AM EDT Home Care Visit [facility] [address] [place] [phone] Shakira Hand RN [address] [place] [address] 04/12/2025 3:00 PM EDT Home Care Visit [facility] [address] [place] [phone] Kennedy, Thao L [address] [place] [address] 04/16/2025 3:00 PM EST Home Care Visit [facility] [address] [place] [phone] Kennedy, Thao L [address] [place] [address] 04/18/2025 1:30 AM EST Home Care Visit [facility] [address] [place] [phone] Shakira Hand RN [address] [place] [address] 04/19/2025 2:00 AM EST Home Care Visit [facility] [address] [place] [address] Thao Kennedy L 30 [place] [address] 04/23/2025 2:00 AM EST Home Care Visit [facility] [address] [place] [address] Thao Kennedy L 30 [place] [address] 04/24/2025 9:40 AM EST Office Visit [facility] Internal Medicine 40 [place] [address] Antione Segura PA-C 40 [place] [address] 04/25/2025 1:30 AM EST Appointment [facility] [address] [place] [phone] Shakira Hand RN [address] [place] [address] 06/25/2025 9:30 AM EST Telemedicine [facility] Neurology [address] [place] [address] Jn Cardoza MD 22 [facility], 2nd [place] [address] documented as of this encounter Visit Diagnoses Not on filedocumented in this encounter Additional Health Concerns Assessment Noted Time PHQ-9 Depression Total Score: 15 025 9:44 AM EDT PHQ-2 Depression Total Score: 4 02/01/20 25 9:44 AM EDT documented as of this encounter Care Teams Associate Account Manager Relationship Specialty Start Date End Date Atnione Segura PA-C 40 [place] [address] [email or web address] PCP - General Physician Coutierier 10/12/24 Jn Cardoza MD [address] [place] [address], 2nd [place] [address] Neurology 02/03/24 Denys Henriquez MD [address] [place] [address] [place] [address] Pulmonary Disease 02/03/24 Rhett Cortez MD 40 [place] [address] [email or web address] Insurance Assigned Provider 01/20/25 documented as of this encounter Additional Source Comments The information contained in this document represents components of the legal health record. It is not the complete legal health record.[facility]
--- OUTSIDE RECORDS SUMMARY | 2025-04-08 02:31 | XMS_ITS | Encounter Summary ---
Author Organization [facility] Address [address] [address] Phone Care Team Providers Care Stainless Steel Finisher Name Role Phone Jn Cardoza MD Unavailable Denys Henriquez MD Unavailable Antione Segura PA-C Primary Care Provider [phone] Rhett Cortez MD Unavailable Encounter Details Date Type Department Care Team (Late st Contact Info) Description 04/03/2025 Episode Documentatio n Update [facility] [address] [place] [address] Margy Rubalcava [address] [place] [address] [email or web address] Social History Tobacco Use Types Packs/Day Years [...] Care Visit [facility] [address] [place] [phone] Kennedy, Thao L [address] [place] [address] 04/12/2025 1:30 AM EDT Home Care Visit [facility] [address] [place] [phone] Shakira Hand RN [address] [place] [address] 04/12/2025 3:00 PM EDT Home Care Visit [facility] [address] [place] [phone] Kennedy, Thao L [address] [place] [address] 04/16/2025 3:00 PM EST Home Care Visit [facility] [address] [place] [phone] Kennedy, Thao L [address] [place] [address] 04/18/2025 1:30 AM EST Home Care Visit [facility] [address] [place] [phone] Shakira Hand, HUA [address] [place] [address] 04/19/2025 2:00 AM EST Home Care Visit [facility] [address] [place] [phone] Thao Kennedy L 30 [place] [address] 04/23/2025 2:00 AM EST Home Care Visit [facility] [address] [place] [phone] Thao Kennedy 30 [place] [address] 04/24/2025 9:40 AM EST Office Visit [facility] Internal Medicine 40 [place] [address] Antione Segura PA-C [address] [place] [address] 04/25/2025 1:30 AM EST Appointment [facility] [address] [place] [phone] Shakira Hand RN [address] [place] [address] 06/25/2025 9:30 AM EST Telemedicine [facility] Neurology [address] [place] [address] Jn Cardoza MD [address] [place] [address], [address] [place] [address] documented as of this encounter Visit Diagnoses Not on filedocumented in this encounter Additional Health Concerns Assessment Noted Time PHQ-9 Depression Total Score: 23 025 3:04 PM EDT PHQ-2 Depression Total Score: 5 03/21/20 25 3:04 PM EDT documented as of this encounter Care Teams Stainless Steel Finisher Relationship Specialty Start Date End Date Antione Segura PA-C [address] [place] [address] [email or web address] PCP - General Physician Senior Policy Associate 10/12/24 Jn Cardoza MD 22 [facility], 2nd [place] [address] [email or web address] Neurology 02/03/24 Denys Henriquez MD [address] [place] [address] [place] [address] Pulmonary Disease 02/03/24 Rhett Cortez MD [address] [place] [address] [email or web address] Insurance Assigned Provider 01/20/25 documented as of this encounter Additional Source Comments The information contained in this document represents components of the legal health record. It is not the complete legal health record.[facility]
--- OUTSIDE RECORDS SUMMARY | 2025-04-08 02:31 | XMS_ITS | Encounter Summary ---
Author Organization [facility] Address [address] [place] [address] Phone Care Team Providers Care Head Of Physics Name Role Phone Jn Cardoza MD Unavailable Denys Henriquez MD Unavailable Antione Segura PA-C Primary Care Provider Rhett Cortez MD Unavailable Encounter Details Date Type Department Care Team (Late st Contact Info) Description 03/13/2025 Orders Only [facility] Internal Medicine [address] [place] [address] Provider, MD Omar [address] [place] [address] Social History Tobacco Use Types Packs/Day [...] 3:00 PM EDT Home Care Visit [facility] [address] [place] [phone] Kennedy, Thao L [address] [place] [address] 04/12/2025 1:30 AM EDT Home Care Visit [facility] [address] [place] [phone] Shakira Hand RN [address] [place] [address] 04/12/2025 3:00 PM EDT Home Care Visit [facility] [address] [place] [phone] Kennedy, Thao L [address] [place] [address] 04/16/2025 3:00 PM EST Home Care Visit [facility] [address] [place] [phone] Kennedy, Thao L 30 [place] [address] 04/18/2025 1:30 AM EST Home Care Visit [facility] [address] [place] [phone] Shakira Hand, HUA 168 [place] [address] 04/19/2025 2:00 AM EST Home Care Visit [facility] [address] [place] [phone] Thao Kennedy L 30 [place] [address] [email or web address] 04/23/2025 2:00 AM EST Home Care Visit [facility] [address] [place] [phone] Brent, Thao L 30 [place] [address] 04/24/2025 9:40 AM EST Office Visit [facility] Internal Medicine 40 [place] [address] Antione Segura PA-C 40 [place] [address] 04/25/2025 1:30 AM EST Appointment [facility] [address] [place] [phone] Shakira Hand RN 168 [place] [address] [email or web address] 06/25/2025 9:30 AM EST Telemedicine [facility] Neurology [address] [place] [address] Jn Cardoza MD [address] [place] [address], 2[address] [place] [address] [email or web address] documented as of this encounter Procedures Procedure Name Priority Date/Time Associated Diagnosis Comments OUTSIDE XR CHEST REPORT ONLY Routine 03/13/2025 8:23 AM EDT documented in this encounter Results * Outside XR??Chest Report Only (03/13/2025 8:23 AM EDT) us Historical Provider MD DAWKINS XR CHEST Final Res ult documented in this encounter Visit Diagnoses Not on filedocumented in this encounter Additional Health Concerns Assessment Noted Time PHQ-9 Depression Total Score: 15 025 9:44 AM EDT PHQ-2 Depression Total Score: 4 02/01/20 25 9:44 AM EDT documented as of this encounter Care Teams Head Of Physics Relationship Specialty Start Date End Date Antione Segura PA-C [address] [place] [address] PCP - General Physician Buggy Runner 10/12/24 Jn Cardoza MD 22 [facility], 2nd [place] [address] Neurology 02/03/24 Denys Henriquez MD [address] [place] [address] [place] [address] Pulmonary Disease 02/03/24 Rhett Cortez MD [address] [place] [phone] Insurance Assigned Provider 01/20/25 documented as of this encounter Additional Source Comments The information contained in this document represents components of the legal health record. It is not the complete legal health record.[facility]
--- OUTSIDE RECORDS SUMMARY | 2025-04-08 02:31 | XMS_ITS | Encounter Summary ---
Author Organization [facility] Address [address] [place] [address] Phone Care Team Providers Care Senior Tax Manager Name Role Phone Lang Germain MD Unavailable Jennifer Duke IT SYSTEMS ANALYST Primary Care Provider Sirisha Huertas FOLDER HAND Primary Care Provider Jn Cardoza MD Unavailable Denys Henriquez MD Unavailable Liyah Patterson MD Unavailable Liyah Patterson MD Primary Care Provider [phone] Antione Segura PA-C Primary Care Provider Rhett Cortez MD Unavailable Encounter Details Date Type Department Care Team (Late st Contact Info) Description 05/06/2021 Procedure Pass [facility], [address] [address] Social History Tobacco Use Types Packs/Day Years [...] Care Visit [facility] [address] [place] [phone] Kennedy, Thao L [address] [place] [phone] [email or web address] 04/12/2025 1:30 AM EDT Home Care Visit [facility] [address] [place] [phone] Shakira Hand RN [address] [place] [address] [email or web address] 04/12/2025 3:00 PM EDT Home Care Visit [facility] [address] [place] [phone] Kennedy, Thao L [address] [place] [phone] [email or web address] 04/16/2025 3:00 PM EST Home Care Visit [facility] [address] [place] [phone] Kennedy, Thao L [address] [place] [address] [email or web address] 04/18/2025 1:30 AM EST Home Care Visit [facility] [address] [place] [phone] Shakira Hand RN [address] [place] [address] [email or web address] 04/19/2025 2:00 AM EST Home Care Visit [facility] 30 [place] [phone] Thao Kennedy 30 [place] [address] 04/23/2025 2:00 AM EST Home Care Visit [facility] 30 [place] [phone] Thao Kennedy 30 [place] [address] 04/24/2025 9:40 AM EST Office Visit [facility] Internal Medicine 40 [place] [address] Antione Segura PA-C 40 [place] [address] [email or web address] 04/25/2025 1:30 AM EST Appointment [facility] [address] [place] [phone] Shakira Hand RN [address] [place] [address] 06/25/2025 9:30 AM EST Telemedicine [facility] Neurology [address] [place] [address] Jn Cardoza MD [address] [place] [address], 2nd [place] [address] documented as of this encounter Visit Diagnoses Not on filedocumented in this encounter Additional Health Concerns Assessment Noted Time PHQ-2 Depression Total Score: 0 05/25/20 19 9:02 AM EST documented as of this encounter Care Teams Senior Tax Manager Relationship Specialty Start Date End Date Jennifer Duke, [place] [address] [place] [address] [email or web address] PCP - General Family Medicine 01/31/20 06/22/23 Sirisha Huertas FNP [address] [place] [address] [email or web address] PCP - General Nurse Practitioner 06/23/23 08/03/24 Liyah Patterson MD [address] [place] [address] [email or web address] PCP - General Family Medicine 08/04/24 10/11/24 Antione Segura PA-C [address] [place] [phone] [email or web address] PCP - General Physician Talent Acquisition Coordinator 10/12/24 Lang Germain MD [address] [place] [address] [email or web address] Insurance Assigned Provider 09/18/23 02/19/24 Jn Cardoza MD [address] [place] [address], 2nd [place] [address] [email or web address] Neurology 02/03/24 Denys Henriquez MD [address] [place] [address] [place] [address] Pulmonary Disease 02/03/24 Liyah Patterson MD [address] [place] [address] [email or web address] Insurance Assigned Provider 02/19/24 01/20/25 Rhett Cortez MD [address] [place] [address] [email or web address] Insurance Assigned Provider 01/20/25 documented as of this encounter Additional Source Comments The information contained in this document represents components of the legal health record. It is not the complete legal health record.[facility]
--- OUTSIDE RECORDS SUMMARY | 2025-04-08 02:31 | XMS_ITS | Encounter Summary ---
Author Organization [facility] Address [address] [address] Phone Care Team Providers Care Search Engine Marketing Specialist Name Role Phone Jn Cardoza MD Unavailable Denys Henriquez MD Unavailable [phone] Liyah Patterson MD Unavailable Antione Segura-C Primary Care Provider Rhett Cortez MD Unavailable Encounter Details Date Type Department Care Team (Late st Contact Info) Description 01/09/2025 Home Health Resumption of [facility] Planning [facility] [address] [place] [phone] Koki Simons, HUA [address] [place] [address] Social History Tobacco Use Types Packs/Day Years [...] high school, GED, job training, learning the Chadian language, technical skills, or developing parenting skills)? [...] 3:00 PM EDT Home Care Visit [facility] [address] [place] [phone] Kennedy, Thao L [address] [place] [address] [email or web address] 04/12/2025 1:30 AM EDT Home Care Visit [facility] [address] [place] [phone] Shakira Hand RN [address] [place] [address] [email or web address] 04/12/2025 3:00 PM EDT Home Care Visit [facility] [address] [place] [phone] Kennedy, Thao L [address] [place] [address] [email or web address] 04/16/2025 3:00 PM EST Home Care Visit [facility] [address] [place] [phone] Kennedy, Thao L [address] [place] [address] [email or web address] 04/18/2025 1:30 AM EST Home Care Visit [facility] [address] [place] [phone] Shakira Hand, HUA [address] [place] [address] 04/19/2025 2:00 AM EST Home Care Visit [facility] [address] [place] [phone] KennedyThao espinosa L 30 [place] [address] 04/23/2025 2:00 AM EST Home Care Visit [facility] 30 [place] [phone] KennedyThao espinosa L 30 [place] [address] 04/24/2025 9:40 AM EST Office Visit [facility] Internal Medicine 40 [place] [address] Antione Segura PA-C 40 [place] [address] 04/25/2025 1:30 AM EST Appointment [facility] [address] [place] [address] Shakira Hand, HUA [address] [place] [address] 06/25/2025 9:30 AM EST Telemedicine [facility] Neurology [address] [place] [address] Jn Cardoza MD 22 [facility], 2nd [place] [address] documented as of this encounter Visit Diagnoses Not on filedocumented in this encounter Additional Health Concerns Assessment Noted Time PHQ-9 Depression Total Score: 20 12/27/ 025 9:08 PM EDT PHQ-2 Depression Total Score: 6 12/28/19 25 9:08 PM EDT documented as of this encounter Care Teams Search Engine Marketing Specialist Relationship Specialty Start Date End Date Antione Segura PA-C [address] [place] [address] [email or web address] PCP - General Physician Carpenter Supervisor 10/12/24 Jn Cardoza MD 22 [facility], 2nd [place] [address] [email or web address] Neurology 02/03/24 Denys Henriquez MD [address] [place] [address] [place] [address] Pulmonary Disease 02/03/24 Liyah Patterson MD 15 [facility] [address]. [address] [place] [address] [email or web address] Insurance Assigned Provider 02/19/24 01/20/25 Rhett Cortez MD 40 [place] [address] [email or web address] Insurance Assigned Provider 01/20/25 documented as of this encounter Additional Source Comments The information contained in this document represents components of the legal health record. It is not the complete legal health record.[facility]
--- OUTSIDE RECORDS SUMMARY | 2025-04-08 02:31 | XMS_ITS | Encounter Summary ---
Author Organization [facility] Address [address] [place] [address] Phone Care Team Providers Care Stone And Concrete Washer Name Role Phone Jn Cardoza MD Unavailable Denys Henriquez MD Unavailable Antione Segura PA-C Primary Care Provider [phone] Rhett Cortez MD Unavailable Reason for Visit * Reason Comments Medication Refill Encounter Details Date Type Department Care Team (Late st Contact Info) Description 04/07/2025 Refill [facility] [place] Internal Medicine [address] [place], [place] [phone] Antione Segura PA-C 40 [place], [place] [phone] [email or web address] Medication Refill Social History Tobacco Use Types [...] 3:00 PM EDT Home Care Visit [facility] [address] [place] [phone] Kennedy, Thao L [address] [place] [address] [email or web address] 04/12/2025 1:30 AM EDT Home Care Visit [facility] [address] [place] [phone] Shakira Hand RN [address] [place] [address] [email or web address] 04/12/2025 3:00 PM EDT Home Care Visit [facility] [address] [place] [phone] Kennedy, Thao L [address] [place] [address] [email or web address] 04/16/2025 3:00 PM EST Home Care Visit [facility] [address] [place] [phone] Kennedy, Thao L [address] [place] [address] [email or web address] 04/18/2025 1:30 AM EST Home Care Visit [facility] [address] [place] [phone] Shakira Hand, HUA [address] [place] [address] 04/19/2025 2:00 AM EST Home Care Visit [facility] 30 [place] [address] Thao Kennedy L 30 [place] [address] 04/23/2025 2:00 AM EST Home Care Visit [facility] 30 [place] [phone] KennedyThao espinosa L 30 [place] [address] 04/24/2025 9:40 AM EST Office Visit [facility] Internal Medicine [address] [place] [address] Antione Segura PA-C 40 [place] [address] 04/25/2025 1:30 AM EST Appointment [facility] [address] [place] [address] Shakira Hand, HUA [address] [place] [address] 06/25/2025 9:30 AM EST Telemedicine [facility] Neurology [address] [place] [address] Jn Cardoza MD 22 [facility], 2nd [place] [address] [email or web address] documented as of this encounter Visit Diagnoses Diagnosis Trigeminal neuralgia 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 Occipital neuralgia of left side documented in this encounter Additional Health Concerns Assessment Noted Time PHQ-9 Depression Total Score: 23 025 3:04 PM EDT PHQ-2 Depression Total Score: 5 03/21/20 25 3:04 PM EDT documented as of this encounter Care Teams Stone And Concrete Washer Relationship Specialty Start Date End Date Antione Segura PA-C 40 [place] [address] [email or web address] PCP - General Physician Allopathic Doctor 10/12/24 Jn Cardoza MD [address] [place] [address], 2nd [place] [address] Neurology 02/03/24 Denys Henriquez MD [address] [place] [address] [place] [address] Pulmonary Disease 02/03/24 Rhett Cortez MD 40 [place] [address] [email or web address] Insurance Assigned Provider 01/20/25 documented as of this encounter Additional Source Comments The information contained in this document represents components of the legal health record. It is not the complete legal health record.[facility]
--- OUTSIDE RECORDS SUMMARY | 2025-04-08 02:31 | XMS_ITS | Encounter Summary ---
Author Organization [facility] Address [address] [place] [address] Phone Care Team Providers Care Lathe Machinist Name Role Phone Charbel Webber MD Unavailable Alverto Gandara MD Unavailable Maikel Rawls MD Unavailable [phone] Lang Germain MD Unavailable Jennifer Duke SALES RECEPTIONIST Primary Care Provider Lang Germain MD Primary Care Provider Jennifer Duke SALES RECEPTIONIST Unavailable [phone] Jennifer Duke SALES RECEPTIONIST Primary Care Provider Lang Germain MD Primary Care Provider Jennifer Duke SALES RECEPTIONIST Primary Care Provider Sirisha Huertas WRAPPING MACHINE TENDER Primary Care Provider [phone] Jn Cardoza MD Unavailable Denys Henriquez MD Unavailable [phone] Liyah Patterson MD Unavailable Liyah Patterson MD Primary Care Provider Antione Segura PA-C Primary Care Provider Rhett Cortez MD Unavailable Encounter Details Date Type Department Care Team (Late Contact Info) Description 03/20/2019 Telephone [facility] [place] Internal Medicine [address] [place] [address] Jennifer Duke, SALES RECEPTIONIST [address] [facility] [address] [place] [address] [email or web address] Social History Tobacco Use Types Packs/Day Years Used Date Smoking Tobacco: Every Day Cigarettes 0.5 43.4 Started: 11/25/1981 Smokeless Tobacco: Current Alcohol Use [...] 3:00 PM EDT Home Care Visit [facility] [address] [place] [address] Eliseo Kennedyica L [address] [place] [address] 04/12/2025 1:30 AM EDT Home Care Visit [facility] [address] [place] [address] Shakira Hand RN [address] [place] [address] [email or web address] 04/12/2025 3:00 PM EDT Home Care Visit [facility] [address] [place], [place] [phone] Brent Thao L 30 [place] [address] [email or web address] 04/16/2025 3:00 PM EST Home Care Visit [facility] [address] [place] [phone] Kennedy, Thao L [address] [place] [address] 04/18/2025 1:30 AM EST Home Care Visit [facility] [address] [place] [phone] Shakira Hand RN [address] [place] [address] [email or web address] 04/19/2025 2:00 AM EST Home Care Visit [facility] [address] [place] [phone] Kennedy, Thao L [address] [place] [address] [email or web address] 04/23/2025 2:00 AM EST Home Care Visit [facility] [address] [place] [phone] Kennedy, Thao L [address] [place] [address] [email or web address] 04/24/2025 9:40 AM EST Office Visit [facility] [place] [facility] [address] [place] [address] Antione Segura PA-C 40 [place] [address] [email or web address] 04/25/2025 1:30 AM EST Appointment [facility] [address] [place] [phone] Shakira Hand RN 168 [place] [address] 06/25/2025 9:30 AM EST Telemedicine [facility] Neurology [address] [place] [address] Jn Cardoza MD 22 [facility], 2nd [place] [address] [email or web address] documented as of this encounter Visit Diagnoses Not on filedocumented in this encounter Additional Health Concerns Assessment Noted Time PHQ-2 Depression Total Score: 0 11/18/19 19 2:05 PM EDT documented as of this encounter Care Teams Lathe Machinist Relationship Specialty Start Date End Date Jennifer Duke SALES RECEPTIONIST [address] [place] [address] PCP - General Family Medicine 12/14/18 11/12/19 Lang Germain MD [address] [place] [address] PCP - General Internal Medicine 11/13/19 12/03/19 Jennifer Duke SALES RECEPTIONIST [address] [place] [address] PCP - General Family Medicine 12/04/19 01/23/20 Lang Geramin MD 40 [place] [address] PCP - General Internal Medicine 01/24/20 01/30/20 Jennifer Duke SALES RECEPTIONIST [address] [place] [address] [email or web address] PCP - General Family Medicine 01/31/20 06/22/23 Sirisha Huertas FNP [address] [address] [email or web address] PCP - General Nurse Practitioner 06/23/23 08/03/24 Liyah Patterson MD [address] [address] [email or web address] PCP - General Family Medicine 08/04/24 10/11/24 Antione Segura PA-C [address] [place] [address] [email or web address] PCP - General Physician Supervisor Heat Treating 10/12/24 Charbel Webber MD 22 [facility], [address] [place] [address] [email or web address] Historical LMR Provider 04/01/17 0 Alverto Gandara MD [address] [place] [address], 2nd [place] [address] Historical LMR Provider 04/01/17 12/03/19 Maikel Rawls MD [address] [place] [address] [email or web address] Historical LMR Provider 04/01/17 12/03/19 Lang Germain MD [address] [place] [address] Insurance Assigned Provider 09/18/23 02/19/24 Jennifer Duke NP 40 [place] [address] Nurse Practitioner Family Medicine 11/13/19 01/30/20 Jn Cardoza MD 22 [facility], 2nd [place] [address] [email or web address] Neurology 02/03/24 Denys Henriquez MD [address] [place] [address] [place] [address] Pulmonary Disease 02/03/24 Liyah Patterson MD 15 [facility] [address] [place] [address] [email or web address] Insurance Assigned Provider 02/19/24 01/20/25 Rhett Cortez MD 40 [place] [address] Insurance Assigned Provider 01/20/25 documented as of this encounter Additional Source Comments The information contained in this document represents components of the legal health record. It is not the complete legal health record.[facility]
--- OUTSIDE RECORDS SUMMARY | 2025-04-08 02:31 | XMS_ITS | Encounter Summary ---
Author Organization [facility] Address [address] [place] [address] Phone Care Team Providers Care Lecturer Of Portuguese Name Role Phone Jn Cardoza MD Unavailable Denys Henriquez MD Unavailable [phone] Antione Segura PA-C Primary Care Provider [phone] Rhett Cortez MD Unavailable Reason for Referral * MRI/CAT Scan - Authorized Specialty Diagnoses / Procedures Referred By Dary smith Referred To Contact Radiology Diagnoses Abnormal finding on imaging Procedures CT Neck Antione Segura PA-C 40 [place] [address] Phone: tel: fax: [email or web address] Referral ID Status Reason Start Date Expiration Date V isits Requested Visits Authorized [id number] Authorized 04/06/2025 04/06/2026 1 1 Encounter Details Date Type Department Care Team (Late st Contact Info) Description 04/06/2025 Orders Only [facility] Internal Medicine [address] [place], [place] [phone] Antione Segura PA-C 40 [place] [address] [email or web address] Abnormal finding on imaging (Primary Dx); Allergic reaction to contrast material, subsequent encounter Social History Tobacco Use Types Packs/Day Years [...] high school, GED, job training, learning the Greek language, technical skills, or developing parenting skills)? [...] Care Visit [facility] [address] [place] [address] Thao Kennedy [address] [place] [address] 04/12/2025 1:30 AM EDT Home Care Visit [facility] [address] [place] [address] Shakira Hand RN 168 [place] [address] 04/12/2025 3:00 PM EDT Home Care Visit [facility] [address] [place] [address] Thao Kennedy [address] [place] [address] 04/16/2025 3:00 PM EST Home Care Visit [facility] [address] [place] [phone] Kennedy, Thao L 30 [place] [address] 04/18/2025 1:30 AM EST Home Care Visit [facility] [address] [place] [phone] Shakira Hand, HUA [address] [place] [address] 04/19/2025 2:00 AM EST Home Care Visit [facility] [address] [place] [phone] Kennedy, Thao L [address] [place] [address] 04/23/2025 2:00 AM EST Home Care Visit [facility] [address] [place] [phone] Kennedy, Thao L [address] [place] [address] 04/24/2025 9:40 AM EST Office Visit [facility] [place] [facility] [address] [place] [address] Antione Segura PA-C 40 [place] [address] 04/25/2025 1:30 AM EST Appointment [facility] [address] [place] [phone] Shakira Hand, HUA 168 [place] [address] 06/25/2025 9:30 AM EST Telemedicine [facility] Neurology 22 [place] [address] Jn Cardoza MD [address] [address] [email or web address] Scheduled Orders Name Type Priority Associated Diagnoses Orde r Schedule CT Neck Imaging Routine Abnormal finding on imaging Expected: 05/07/2025, Expires: 07/07/2025 documented as of this encounter Visit Diagnoses Diagnosis Abnormal finding on imaging- Primary Other nonspecific (abnormal) findings on radiological and other examinations of body structure Allergic reaction to contrast material, subsequent encounter documented in this encounter Additional Health Concerns Assessment Noted Time PHQ-9 Depression Total Score: 23 025 3:04 PM EDT PHQ-2 Depression Total Score: 5 03/21/20 25 3:04 PM EDT documented as of this encounter Care Teams Lecturer Of Portuguese Relationship Specialty Start Date End Date Antione Segura PA-C 40 [place] [address] [email or web address] PCP - General Physician Club Car Attendant 10/12/24 Jn Cardoza MD [address] [place] [address] Neurology 02/03/24 Denys Henriquez MD [address] [place] [address] [place] [address] Pulmonary Disease 02/03/24 Rhett Cortez MD [address] [place] [address] [email or web address] Insurance Assigned Provider 01/20/25 documented as of this encounter Additional Source Comments The information contained in this document represents components of the legal health record. It is not the complete legal health record.[facility]
--- OUTSIDE RECORDS SUMMARY | 2025-04-08 02:31 | XMS_ITS | Encounter Summary ---
Author Organization [facility] Address [address] [place] [address] [place] [address] Phone Care Team Providers Care Stripe Marker Name Role Phone Lang Germain MD Unavailable [phone] Jennifer Duke DIMENSIONAL INSPECTOR Primary Care Provider [phone] Sirisha Huertsa MANAGER BATTERY Primary Care Provider Jn Cardoza MD Unavailable Denys Henriquez MD Unavailable Liyah Patterson MD Unavailable Liyah Patterson MD Primary Care Provider Antione Segura PA-C Primary Care Provider Rhett Cortez MD Unavailable Encounter Details Date Type Department Care Team (Late st Contact Info) Description 11/11/2021 Transcribe Orders [facility] 30 [place] [address] Jennifer Duke, DIMENSIONAL INSPECTOR 26 [facility] [address] [place] [address] [email or web address] Social History Tobacco Use Types Packs/Day Years [...] Care Visit [facility] [address] [place] [phone] Kennedy, Thao L [address] [place] [address] 04/12/2025 1:30 AM EDT Home Care Visit [facility] [address] [place] [phone] Shakira Hand, RN 168 [place] [address] 04/12/2025 3:00 PM EDT Home Care Visit [facility] [address] [place] [phone] Kennedy, Thao L [address] [place] [address] 04/16/2025 3:00 PM EST Home Care Visit [facility] [address] [place] [phone] Kennedy, Thao L [address] [place] [address] 04/18/2025 1:30 AM EST Home Care Visit [facility] [address] [place] [phone] Shakira Hand RN [address] [place] [address] 04/19/2025 2:00 AM EST Home Care Visit [facility] [address] [place] [phone] Kennedy, Thao L 30 [place] [address] 04/23/2025 2:00 AM EST Home Care Visit [facility] [address] [place] [phone] Kennedy, Thao L 30 [place] [address] 04/24/2025 9:40 AM EST Office Visit [facility] Internal Medicine 40 [place] [address] Antione Segura PA-C 40 [place] [address] [email or web address] 04/25/2025 1:30 AM EST Appointment [facility] [address] [place] [phone] Shakira Hand RN 168 [place] [address] 06/25/2025 9:30 AM EST Telemedicine [facility] Neurology [address] [place] [address] Jn Cardoza MD 22 [facility], 2nd [place] [address] [email or web address] documented as of this encounter Visit Diagnoses Not on filedocumented in this encounter Additional Health Concerns Assessment Noted Time PHQ-2 Depression Total Score: 0 05/25/20 19 9:02 AM EST documented as of this encounter Care Teams Stripe Marker Relationship Specialty Start Date End Date Jennifer Duke, DIMENSIONAL INSPECTOR [address] [place] [address] [email or web address] PCP - General Family Medicine 01/31/20 06/22/23 Sirisha Huertas, AGA [address] [place] [address] [email or web address] PCP - General Nurse Practitioner 06/23/23 08/03/24 Liyah Patterson MD [address] [place] [address] [email or web address] PCP - General Family Medicine 08/04/24 10/11/24 Antione Segura PA-C [address] [place] [address] [email or web address] PCP - General Physician Hot Dog Vendor 10/12/24 Lang Germain MD [address] [place] [address] [email or web address] Insurance Assigned Provider 09/18/23 02/19/24 Jn Cardoza MD [address] [place] [address], 2nd [place] [address] [email or web address] Neurology 02/03/24 Denys Henriquez MD [address] [place] [address] [place] [address] Pulmonary Disease 02/03/24 Liyah Patterson MD [address] [place] [address] [email or web address] Insurance Assigned Provider 02/19/24 01/20/25 Rhett Cortez MD [address] [place] [address] [email or web address] Insurance Assigned Provider 01/20/25 documented as of this encounter Additional Source Comments The information contained in this document represents components of the legal health record. It is not the complete legal health record.[facility]
--- OUTSIDE RECORDS SUMMARY | 2025-04-08 02:31 | XMS_ITS | Encounter Summary ---
Author Organization [facility] Address [address] [address] Phone Care Team Providers Care County Supervisor Name Role Phone Jn Cardoza MD Unavailable Denys Henriquez MD Unavailable Antione Segura PA-C Primary Care Provider [phone] Rhett Cortez MD Unavailable Encounter Details Date Type Department Care Team (Late st Contact Info) Description 03/20/2025 Home Health Resumption of Care Planning [facility] 30 [place] [phone] Koki Simons RN 168 [place] [address] [email or web address] Social History Tobacco Use Types Packs/Day Years [...] high school, GED, job training, learning the Iraqi language, technical skills, or developing parenting skills)? [...] Care Visit [facility] [address] [place] [phone] Kennedy, Thao L [address] [place] [address] 04/12/2025 1:30 AM EDT Home Care Visit [facility] [address] [place] [phone] Shakira Hand RN 168 [place] [address] 04/12/2025 3:00 PM EDT Home Care Visit [facility] [address] [place] [phone] Kennedy, Thao L [address] [place] [address] 04/16/2025 3:00 PM EST Home Care Visit [facility] [address] [place] [phone] Kennedy, Thao L [address] [place] [address] 04/18/2025 1:30 AM EST Home Care Visit [facility] [address] [place] [phone] Shakira Hand RN [address] [place] [address] 04/19/2025 2:00 AM EST Home Care Visit [facility] 30 [place] [address] Thao Kennedy L 30 [place] [address] 04/23/2025 2:00 AM EST Home Care Visit [facility] [address] [place] [address] Thao Kennedy L 30 [place] [address] 04/24/2025 9:40 AM EST Office Visit [facility] Internal Medicine 40 [place] [address] Antione Segura PA-C 40 [place] [address] [email or web address] 04/25/2025 1:30 AM EST Appointment [facility] [address] [place] [phone] Shakira Hand RN [address] [place] [address] 06/25/2025 9:30 AM EST Telemedicine [facility] Neurology [address] [place] [address] Jn Cardoza MD 22 [facility], 2nd [place] [address] documented as of this encounter Visit Diagnoses Not on filedocumented in this encounter Additional Health Concerns Assessment Noted Time PHQ-9 Depression Total Score: 15 025 9:44 AM EDT PHQ-2 Depression Total Score: 4 02/01/20 25 9:44 AM EDT documented as of this encounter Care Teams County Supervisor Relationship Specialty Start Date End Date Antione Segura PA-C 40 [place] [address] [email or web address] PCP - General Physician Bridge Operator Slip 10/12/24 Jn Cardoza MD [address] [place] [address], 2[address] [place] [address] Neurology 02/03/24 Denys Henriquez MD [address] [place] [address] [place] [address] Pulmonary Disease 02/03/24 Rhett Cortez MD 40 [place] [address] [email or web address] Insurance Assigned Provider 01/20/25 documented as of this encounter Additional Source Comments The information contained in this document represents components of the legal health record. It is not the complete legal health record.[facility]
--- OUTSIDE RECORDS SUMMARY | 2025-04-08 02:31 | XMS_ITS | Encounter Summary ---
Author Organization [facility] Address [address] [address] Phone Care Team Providers Care Physicians Assistant Name Role Phone Jn Cardoza MD Unavailable Denys Henriquez MD Unavailable Antione Segura PA-C Primary Care Provider Rhett Cortez MD Unavailable Encounter Details Date Type Department Care Team (Late st Contact Info) Description 04/05/2025 Episode Documentatio n Update [facility] [address] [place] [phone] Margy Rubalcava [address] [place] [address] [email or web address] Social History Tobacco Use Types Packs/Day Years [...] high school, GED, job training, learning the [place] Island[place] language, technical skills, or developing parenting [...] Care Visit [facility] [address] [place] [phone] Kennedy, Thao L [address] [place] [address] 04/12/2025 1:30 AM EDT Home Care Visit [facility] [address] [place] [phone] Shakira Hand RN [address] [place] [address] 04/12/2025 3:00 PM EDT Home Care Visit [facility] [address] [place] [phone] Kennedy, Thao L [address] [place] [address] 04/16/2025 3:00 PM EST Home Care Visit [facility] [address] [place] [phone] Kennedy, Thao L [address] [place] [address] 04/18/2025 1:30 AM EST Home Care Visit [facility] [address] [place] [phone] Shakira Hand, HUA [address] [place] [address] 04/19/2025 2:00 AM EST Home Care Visit [facility] [address] [place] [phone] Thao Kennedy L 30 [place] [address] 04/23/2025 2:00 AM EST Home Care Visit [facility] [address] [place] [phone] Thao Kennedy 30 [place] [address] 04/24/2025 9:40 AM EST Office Visit [facility] Internal Medicine 40 [place] [address] Antione Segura PA-C [address] [place] [address] 04/25/2025 1:30 AM EST Appointment [facility] [address] [place] [phone] Shakira Hand RN [address] [place] [address] 06/25/2025 9:30 AM EST Telemedicine [facility] Neurology [address] [place] [address] Jn Cardoza MD [address] [place] [address], [address] [place] [address] documented as of this encounter Visit Diagnoses Not on filedocumented in this encounter Additional Health Concerns Assessment Noted Time PHQ-9 Depression Total Score: 23 025 3:04 PM EDT PHQ-2 Depression Total Score: 5 03/21/20 25 3:04 PM EDT documented as of this encounter Care Teams Physicians Assistant Relationship Specialty Start Date End Date Antione Segura PA-C [address] [place] [address] [email or web address] PCP - General Physician Watch Guard Gate 10/12/24 Jn Cardoza MD 22 [facility], 2nd [place] [address] [email or web address] Neurology 02/03/24 Denys Henriquez MD [address] [place] [address] [place] [address] Pulmonary Disease 02/03/24 Rhett Cortez MD [address] [place] [address] [email or web address] Insurance Assigned Provider 01/20/25 documented as of this encounter Additional Source Comments The information contained in this document represents components of the legal health record. It is not the complete legal health record.[facility]
--- OUTSIDE RECORDS SUMMARY | 2025-04-08 02:32 | XMS_ITS | Clinical Summary ---
Author Organization [facility] Address [address] [place] [address] Phone Care Team Providers Care Lens Maker Name Role Phone Jn Cardoza MD Unavailable Denys Henriquez MD Unavailable Antione Segura PA-C Primary Care Provider [phone] Rhett Cortez MD Unavailable Allergies Active Allergy Reactions Criticality Noted Date Comments Adhesive Rash Medium 05/04/2017 Iodinated Contrast Media Hives 05/04/2017 Latex, Natural Rubber Rash Low 05/04/2017 Morphine Sulfate Nausea and/or Vomiting Procaine Hcl Other (See Comments) 02/11/2000 Hives-novacaine Medications aspirin 81 MG EC tablet Take 1 tablet by mouth every morning. 024 Active nebulizer accessories Kit Active ipratropium-albute roL (DUONEB) 0.5-3 mg (2.5 mg base)/3 mL nebulizer solution Take 3 mL by nebulization every 4 (four) hours. 024 Active VIOS AEROSOL DELIVERY SYSTEM Stefani Active verapamiL (CALAN) 120 MG immediate release tablet Take 120 mg by mouth 2 (two) times a day. hold if sbp less than 120 024 Active DULoxetine (CYMBALTA) 60 MG capsuleIndications :Anxiety take one capsule by mouth twice a day 60 capsule 11 024 Active prazosin (MINIPRESS) 2 MG capsule Take 1 capsule (2 mg total) by mouth nightly at bedtime. 30 capsule 11 025 Active calcium carbonate-vitamin D3 1,500 mg (600 mg elemental)-200 units Tab TAKE ONE TABLET BY MOUTH EVERY DAY 90 tablet 3 025 Active OXYGEN-AIR DELIVERY SYSTEMS MISC 2 L by Intranasal route continuous. 1L WITH SLEEP 2L WITH REST/ NO ACTIVITY 3L WITH EXERTION. 025 Active baclofen (LIORESAL) 20 MG tabletIndications: Trigeminal neuralgia of left side of face,Atypical facial pain Take 1 tablet (20 mg total) by mouth 3 (three) times a day. 90 tablet 11 025 Active roflumilast (DALIRESP) 500 mcg Tab Take 500 mcg by mouth daily. 025 Active valsartan (DIOVAN) 80 MG tablet Take 80 mg by mouth daily. hold is sbp less than 90 025 Active ciclopirox (PENLAC) 8 % solution Apply topically nightly at bedtime. Apply over nail and surrounding skin. Apply daily over previous coat. After seven (7) days, may remove with alcohol and continue cycle. 6.6 mL 1 025 Active diphenhydrAMINE (BENADRYL) 50 MG capsule Take 1 capsule (50 mg total) by mouth as directed. Take 1 hour before your appointment where you will be receiving IV contrast dye for your imaging study 1 capsule 025 Active hyoscyamine (ANASPAZ,LEVSIN) 0.125 mg tabletIndications: Irritable bowel syndrome with both constipation and diarrhea TAKE 1-2 TABLETS BY MOUTH EVERY 4 - 6 HOURS NEEDED FOR ABDOMINAL CRAMPS AND BLOATING PRN 60 tablet 2 025 Active ARIPiprazole (ABILIFY) 5 MG tablet Take 5 mg by mouth daily. 025 Active budesonide (PULMICORT) 0.5 mg/2 mL nebulizer solution Take 0.5 mg by nebulization daily. States does not have, per Dr. Henriquez/griffin onology not on her medlist Active omeprazole (PRILOSEC) 20 MG capsule Take 20 mg by mouth daily. Active benzonatate (TESSALON) 100 MG capsuleIndications :Persistent cough Take 1 capsule (100 mg total) by mouth 3 (three) times a day as needed for cough. 20 capsule Active LORazepam (ATIVAN) 0.5 MG tabletIndications: Anxiety Take 1 tablet (0.5 mg total) by mouth 2 (two) times a day as needed for anxiety. Must last one month. 14 tablet Active ID-clobetasol propionate (20-577) 0.05 % topical ointment Apply 1 Application topically 2 (two) times a day. Active budesonide-glycopy r-formoterol (BREZTRI AEROSPHERE) 160-9-4.8 mcg/actuation inhaler Inhale 2 puffs into the lungs 2 (two) times a day. Active OXcarbazepine (TRILEPTAL) 300 MG IMMEDIATE release tabletIndications: Trigeminal neuralgia of left side of face,Atypical facial pain Take 1 tablet (300 mg total) by mouth 2 (two) times a day. 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 30 tablet 2 Active oxyCODONE 5 MG immediate release tabletIndications: Acute right-sided low back pain without sciatica Take 1 tablet (5 mg total) by mouth every 6 (six) hours as needed for pain (specific location in comments). 28 tablet Active predniSONE (DELTASONE) 50 MG tablet Take 1 tablet by mouth 13, 7 and 1 hour(s) before your appointment where you will be receiving IV contrast dye for your imaging study 3 tablet Active cetirizine (ZYRTEC) 10 MG tablet Take 1 tablet (10 mg total) by mouth as directed. Take 1 hour before your appointment where you will be receiving IV contrast dye for your imaging study 1 tablet Active predniSONE (DELTASONE) 10 MG tablet Take 10 mg by mouth daily. TAPER: [id number] 10MG X4DAYS 5MG X4DAYS 2024 Discontinued(D iscontinued by another clinician) oxyCODONE 5 MG immediate release tabletIndications: Sacroiliitis, not elsewhere classified Take 1 tablet (5 mg total) by mouth every 12 (twelve) hours as needed for pain (specific location in comments). 28 tablet 2024 Discontinued(R eorder) oxyCODONE 5 MG immediate release tabletIndications: Sacroiliitis, not elsewhere classified Take 1 tablet (5 mg total) by mouth every 12 (twelve) hours as needed for pain (specific location in comments). 28 tablet 2024 Discontinued(R eorder) predniSONE (DELTASONE) 10 MG tablet Take 10 mg by mouth daily. 40MG EVERY 3 DAYS 30MG EVERY 3 DAYS 20MG EVERY 3 DAYS 10MG EVERY 3 DAYS 2024 Discontinued predniSONE (DELTASONE) 5 MG tablet Take 5 mg by mouth daily. EVERY OTHER DAY 2024 Discontinued(N o longer taking) Active Problems Problem Noted Date Diagnosed Date Depression 03/28/2025 Assessment & Plan (03/28/2025 4:16 PM EDT): Patient with a history of anxiety and depression who is on Abilify 5 mg p.o. daily, Cymbalta 60 mg p.o. twice daily, gabapentin 300 mg 4 capsules 3 times a day, Trileptal 300 mg p.o. twice daily and prazosin 2 mg nightly who did have an appointment with Jennifer and unfortunately missed subsequent follow-up secondary to being ill and in the hospital. During today's visit patient mentions that her mental health is not good as she is quite depressed with her current state. She mentions that she often feels as though she would be better off not here. She also notes that she feels that her is also struggling mentally and is having caregiver burnout. While talking to them both in the office they are both opening up and discussing how the struggle with watching her deteriorate. We discussed options with regards to support for them both individually and also together as a couple. I advised that the patient continue her current medications and I have placed a referral for ambulatory medical group social work Dizziness and giddiness 03/28/2025 Assessment & Plan (03/28/2025 4:13 PM EDT): Patient has been experiencing episodes of dizziness which last for seconds in all positions. It is unclear of the etiology however patient does carry a history of cerebral aneurysm. Patient has not had any changes to her medications. Patient mentions that it can also be noted as lightheadedness or off-balance. She denies any upper or lower extremity weakness. Given her history of dizziness, , and cerebral aneurysm in the past I am concerned that the patient could potentially have a cerebellar stroke therefore I will order a CT head urgently for further evaluation. If this is noted to be negative then I would also recommend that the patient undergo a Holter monitor to rule out episodes of A-fib and have her follow-up with the payroll professional Acute on chronic hypoxic respiratory failure Assessment & Plan (03/28/2025 4:20 PM EDT): Patient was recently admitted to [facility] from 03/13-03/19 for acute on chronic hypoic respiratory failure due to COPD exacerbation. Her arterial blood gas was stable from previous, labs and chest x-ray were noted to be negative. She was treated with BiPAP then transition to supplemental O2. She was given IV Solu-Medrol and magnesium as well as nebulizers with improvement. She was discharged home on prednisone taper which she has been continuing on. She mentions that her breathing feels to be back to baseline which is supplemental O2 via nasal cannula at 1 to 3 L. She has to follow-up with her industrial maintenance technician and to schedule another sleep study to be completed. Assessment & Plan (12/28/2024 6:54 PM EDT): Respiratory status improved on course of antibiotics and prednisone. Continue deep breathing and monitor for any worsened respiratory status. Monitor home spO2. Continue benzonatate prn. Continue O2 therapy as prescribed. Referral placed to [facility] Pulmonology. Trigeminal neuralgia 12/28/2024 Assessment & Plan (12/28/2024 6:57 PM EDT): Reviewed most recent neurology consult note. Refilled gabapentin. Acute right-sided low back pain without sciatica 12/28/2024 Assessment & Plan (03/28/2025 4:11 PM EDT): Patient with a history of chronic low back pain with SI joint pain who is managed on oxycodone 5 mg p.o. twice daily as needed. Of note patient states that she started with increasing low back pain associated over the spinous processes of the lumbar region. She denies any radiation of pain or weakness of her lower extremities. She is noted to have tenderness to palpation over the lumbar spinous processes without any noted muscle spasms in the paraspinous musculature. Given her exquisite tenderness I will obtain a lumbar x-ray to rule out compression fractures. I will also increase her oxycodone 5 mg p.o. every 6 hours as needed for now [employer] verified. Assessment & Plan (12/28/2024 7:01 PM EDT): [...] last year and this was completed at [facility] through her payroll professional -Her blood pressures have been not well-controlled [...] daily. She follows with Dr. Thurman at [facility]. Patient follows regularly with him. Her [...] Does have outpatient stress test scheduled with [facility] Cardiology. Discussed that results would indicate future management and whether that may include cardiac catheterization. I do not see record of this within her discharge summary from [facility] Assessment & Plan (12/22/2023 9:33 AM EDT): Diagnosed in the setting of COPD exacerbation. Continue statin and aspirin therapy. She does have follow-up visit scheduled with cardiology at which point they will discuss stress test. ED precautions discussed should chest pain recur Pulmonary nodules 03/11/2023 Non-rheumatic mitral regurgitation 11/03/2017 [...] should be seen and followed by a tug boat captain which she does already have appointment scheduled [...] how this is not appropriate given prescribed [place] for pain and risk of CHEMICAL PUMPER depression. She is aware of these risks and agrees to continuing medication as prescribed. She understands that she can contact the office should she be interested in discussion of medication regimen. Assessment & Plan (11/01/2023 10:20 AM EDT): PHQ9 Flowsheet Row Office Visit from 10/28/2023 in [facility] PHQ-9 Total Score 24 [...] PM EDT): Continue atorvastatin 80 mg daily Nightmares associated with c hronic post-traumatic stress disorder 05/04/2017 Assessment & Plan (10/12/2024 5:06 PM EDT): Continue prazosin 2 mg nightly Resolved Problems Problem Noted Date Diagnosed Date Resolved Date Persistent cough 12/28/2024 03/28/2025 Chronic bronchitis 10/12/2024 Current every day cannabis [...] study and speech evaluation when inpatient at [facility]. Discussed referral to gastroenterology discussed potential of endoscopy Chronic obstructive pulmonary disease 03/11/2023 03/28/2025 Assessment & Plan (02/15/2025 12:55 PM EDT): [...] does have an upcoming appointment with her industrial maintenance technician next week. Of note she also saw another industrial maintenance technician Remy Bautista out at [facility] pulmonary and has a follow-up [...] follows closely with Dr. Henriquez out of [facility]. She is on Daliresp, DuoNebs and [...] a scheduled appointment on 12/18 with her industrial maintenance technician. She is hoping to get this moved [...] follows closely with Dr. Henriquez out of [facility]. She is on Daliresp, DuoNebs and [...] Continue prednisone as prescribed upon discharge from [facility]. Discussed concern for coronary requirement of nebulizer treatments and albuterol rescue inhaler. We also reviewed the importance of vaping cessation, she remains precontemplative. She does have follow-up appointment scheduled with Dr. Henriquez and has resumed VNA services. Assessment & Plan (11/29/2023 5:28 PM EDT): Recent admission for COPD exacerbation with acute hypoxemic respiratory failure. Current industrial maintenance technician is Dr. Henriquez at [facility]. She is interested in establishing care with [facility] pulmonology some of her specialists are within the [facility] system for better continuity of care. She understands that she should continue with Dr. Sevilla until she is able to establish care with [facility] Hypoxemia requiring supplemental oxygen 03/11/2023 10/12/2024 Assessment [...] EST): Continue follow-up with Dr. 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 We discussed concern for CHEMICAL PUMPER depression and need to minimize use especially [...] tension headaches 05/04/2017 Parotid mass 05/04/2017 10/12/2024 Sacroiliitis, not elsewhere classified 05/04/2017 03/28/2025 Assessment & Plan (10/12/2024 5:06 PM EDT): Patient with a history of low back pain and sacroiliitis who has undergone previous laminectomy and discectomy by Dr. Dupont. She still has chronic low back pain requiring the use of baclofen 20 mg p.o. 3 times daily and she was on [place] however during her last hospital stay this [...] baclofen 20 mg p.o. 3 times daily Nicotine dependence, cigaret reba, uncomplicated 05/04/2017 10/12/2024 Assessment & Plan (03/01/2024 10:10 AM EDT): Advised smoking cessation, remains pre-contemplative at this time Degenerative arthritis of te mporomandibular joint 05/04/2017 10/12/2024 Encounters Date Type Department Care Team Description 04/07/2025 Refill [facility] Internal Medicine [address] [place] [address] Antione Segura PA-C Medication Refill 04/06/2025 11:45 AM EDT - 04/06/2025 11:59 PM EDT Hospital Encounter [address] [address] Antione Segura PA-C Arrived Discharge Disposition: Home or Self Care 04/06/2025 Orders Only [facility] Internal Medicine [address] [place] [address] Antione Segura PA-C Abnormal finding on imaging (Primary Dx); Allergic reaction to contrast material, subsequent encounter 04/05/2025 3:00 PM EDT Home Care Visit [facility] [address] [place] [address] Thao Kennedy L EXECUTIVE COMPENSATION ANALYST HOME VISIT 04/05/2025 2:00 AM EDT Home Care Visit [facility] [address] [place] [phone] Rich Mariscal LPN HOME VISIT 04/05/2025 Episode Documentation Update [facility] [address] [place] [address] Margy Rubalcava 04/04/2025 Episode Documentation Update [facility] [address] [place] [address] Margy Rubalcava 04/03/2025 Episode Documentation Update [facility] [address] [place] [phone] Margy Rubalcava 04/02/2025 2:00 PM EDT Home Care Visit [facility] [address] [place] [phone] Eliseo Kennedyica L EXECUTIVE COMPENSATION ANALYST HOME VISIT 04/02/2025 Episode Documentation Update [facility] [address] [place] [address] Margy Rubalcava 03/30/2025 Episode Documentation Update [facility] [address] [place] [phone] Margy Rubalcava 03/29/2025 3:00 PM EDT Home Care Visit [facility] [address] [place] [phone] Thao Kennedy EXECUTIVE COMPENSATION ANALYST HOME VISIT 03/29/2025 11:30 AM EDT Home Care Visit [facility] [address] [place] [phone] Shakira Hand RN SN HOME VISIT 03/29/[address] [address] Janay Naidu Care Coordination 03/29/2025 Episode Documentation Update [facility] [address] [place] [phone] Margy Rubalcava 03/28/2025 2:32 PM EDT - 03/28/2025 11:59 PM EDT Hospital Encounter [facility], [address] [address] Antione Segura PA-C Discharge Disposition: Home or Self Care 03/28/2025 9:40 AM EDT Office Visit [facility] Internal Medicine [address] [place] [address] Antione Segura PA-C Acute right-sided low back pain without sciatica (Primary Dx); Depression, unspecified depression type; Dizziness and giddiness; Acute on chronic hypoxic respiratory failure 03/28/[address] [address] Janay Naidu Care Coordination 03/28/2025 Telephone [facility] Internal Medicine [address] [place] [address] Antione Segura PA-C Results 03/28/2025 Procedure Pass [facility], Ct Scan - [address] [address] 03/28/2025 Episode Documentation Update [facility] [address] [place] [address] Margy Rubalcava 03/27/2025 Home Care Visit [facility] [address] [place] [address] Thao Kennedy Jose EXECUTIVE COMPENSATION ANALYST HOME VISIT 03/21/2025 1:30 PM EDT Home Care Visit [facility] [address] [place] [address] Shakira Hand, HUA SN OASIS RESUMPTION OF CARE (VERONIKA) 03/21/2025 Documentation [facility] Internal Medicine [address] [place] [place], [place] [phone] Antione Segura PA-C 03/20/2025 Home Health Resumption of Care Planning [facility] [address] [place] [address] Koki Simons RN 03/16/2025 4:30 AM EDT Home Care Visit [facility] [address] [place] [address] Shakira Hand, HUA SN OASIS TRANSFER 03/15/2025 Refill [facility] Internal Medicine [address] [place] [place], [place] [phone] Antione Segura PA-C Medication Refill 03/13/2025 Orders Only [facility] Internal Medicine [address] [place] [place], [place] [phone] Provider, MD Omar 03/08/2025 1:00 AM EDT Home Care Visit [facility] [address] [place] [address] Rich Mariscal LPN HOME VISIT 03/08/2025 Refill [facility] Internal Medicine [address] [place] [place], [place] [phone] Antione Segura PA-C Medication Refill 03/08/2025 Refill [facility] Internal Medicine [address] [place] [address] Pete Hicks PA-C Medication Refill 03/08/2025 [facility] [address] [place] [address] Antione Segura PA-C Medication Refill 03/06/2025 Episode Documentation Update [facility] [address] [place] [phone] Bratic, Stanislavka 03/05/2025 Episode Documentation Update [facility] [address] [place] [phone] Bratic, Stanislavka 03/04/2025 Episode Documentation Update [facility] [address] [place] [phone] Bratic, Stanislavka 03/02/2025 Episode Documentation Update [facility] [address] [place] [phone] Bratic, Stanislavka 03/02/2025 Telephone [facility] Internal Medicine [address] [place] [address] Antione Segura PA-C [facility] referral request 03/01/2025 11:00 AM EDT Home Care Visit [facility] [address] [place] [phone] Rich Mariscal LPN HOME VISIT 03/01/2025 Refill [facility] Neurology [address] [place] [address] Vania Matamoros MA 02/27/2025 [facility] [address] [place] [address] Antione Segura PA-C Medication Refill 02/26/2025 Episode Documentation Update [facility] [address] [place] [address] Margy Rubalcava 02/23/2025 11:30 AM EDT Home Care Visit [facility] [address] [place] [address] Shakira Hand, HUA SN OASIS RECERTIFICATION/FUP 02/23/2025 Plan of Care Documentation [facility] [address] [place] [phone] 02/21/2025 Episode Documentation Update [facility] [address] [place] [address] Margy Rubalcava 02/20/2025 Orders Only [facility] Internal Medicine [address] [place] [address] ProviderOmar MD 02/19/2025 10:30 AM EDT Home Care Visit [facility] [address] [place] [address] Shakira Hand RN SN PRN HOME VISIT 02/19/2025 9:00 AM EDT Home Care Visit [facility] [address] [place] [address] Krysta Charles EXECUTIVE COMPENSATION ANALYST HOME VISIT 02/16/2025 Home Care Visit [facility] [address] [place] [address] Laquita Mchugh, PT TELEPHONE ENCOUNTER 02/16/2025 Telephone [facility] Internal Medicine [address] [place] [address] Antione Segura PA-C Referral ([facility] Pulmonology) 02/16/2025 Home Care Visit [facility] [address] [place] [address] Krysta Charles HOME VISIT 02/15/2025 9:00 AM EDT Office Visit [facility] Internal Medicine [address] [place] [address] Antione Segura PA-C Pulmonary emphysema, unspecified emphysema type (Primary Dx) 02/15/2025 Home Care Visit [facility] [address] [place] [address] Laquita Mchugh, PT TELEPHONE ENCOUNTER 02/14/2025 1:30 PM EDT Home Care Visit [facility] [address] [place], [place] [phone] Shakira Hand, HUA SN HOME VISIT 02/14/2025 Home Care Visit [facility] [address] [place] [address] Laquita Mchugh, PT TELEPHONE ENCOUNTER 02/14/2025 Home Care Visit [facility] [address] [place] [address] Laquita Mchugh, PT TELEPHONE ENCOUNTER 02/14/2025 Orders Only [facility] Internal Medicine [address] [place] [address] ProviderOmar MD 02/14/2025 Documentation [facility] Internal Medicine [address] [place] [address] Antione Segura PA-C 02/14/2025 Home Care Visit [facility] [address] [place] [address] Krysta Charles EXECUTIVE COMPENSATION ANALYST HOME VISIT 02/13/[address] [phone] Antione Segura PA-C Appointment (Tcm+discharged 02/09/25 ) 02/12/2025 12:30 PM EDT Home Care Visit [facility] [address] [place] [address] Shakira Hand, HUA SN OASIS RESUMPTION OF CARE (VERONIKA) 02/11/2025 Home Care Visit [facility] [address] [place], [place] [phone] Maritza Calix, RN CASE COMMUNICATION 02/09/2025 Home Health Resumption of Care Planning [facility] [address] [place] [phone] Koki Simons, HUA 02/08/2025 1:00 AM EDT Home Care Visit [facility] [address] [place] [address] Shakira Hand, HUA SN OASIS TRANSFER 02/05/2025 Home Care Visit [facility] [address] [place] [address] Krysta Charles CASE COMMUNICATION 02/01/2025 3:30 PM EDT Home Care Visit [facility] [address] [place] [address] Yane Lanza, PT PT HOME VISIT 02/01/2025 4:00 AM EDT Home Care Visit [facility] [address] [place] [address] Krysta Charles EXECUTIVE COMPENSATION ANALYST HOME VISIT 01/31/2025 1:30 PM EDT Home Care Visit [facility] [address] [place] [address] Shakira Hand RN SN HOME VISIT 01/29/2025 3:30 PM EDT Home Care Visit [facility] [address] [place] [address] Yane Lanza, PT PT HOME VISIT 01/29/2025 8:15 AM EDT Home Care Visit [facility] [address] [place] [address] Krysta CharlesA HOME VISIT 01/29/2025 Refill [facility] [address] [place] [address] Antione Segura PA-C Medication Refill 01/29/2025 Telephone [facility] Internal [facility] [address] [place] [address] Antione Segura PA-C Request For Order(s) 01/26/2025 Home Care Visit [facility] [address] [place] [phone] Karlene Berumen, RN TELEPHONE ENCOUNTER 01/25/2025 2:30 PM EDT Home Care Visit [facility] [address] [place] [phone] Yane Lanza, PT PT EVALUATION 01/25/2025 4:00 AM EDT Home Care Visit [facility] [address] [place] [phone] Krysta Charles HOME VISIT 01/25/2025 1:00 AM EDT Home Care Visit [facility] [address] [place] [address] Karlene Berumen, HUA SN HOME VISIT 01/24/2025 Telephone [facility] Internal [facility] [address] [place] [address] Antione Segura PA-C PFT 01/24/2025 Telephone [facility] [address] [place], [place] [phone] Eliana Prabhakar CNP Breast Cancer Screening 01/23/2025 9:00 AM EDT Home Care Visit [facility] [address] [place] [phone] Rich Mariscal LPN HOME VISIT 01/23/2025 4:30 AM EDT Home Care Visit [facility] [address] [place] [address] Krysta Charles HOME VISIT 01/22/2025 Home Care Visit [facility] [address] [facility] [place] [phone] Yane Lanza, PT TELEPHONE ENCOUNTER 01/22/2025 Refill [facility] [address] [place] [address] Antione Segura PA-C Medication Refill 01/18/2025 11:00 AM EDT Home Care Visit [facility] [address] [place] [phone] Shakira Hand, HUA SN HOME VISIT 01/18/2025 9:15 AM EDT Home Care Visit [facility] [address] [place] [address] Krysta Charles EXECUTIVE COMPENSATION ANALYST HOME VISIT 01/18/2025 Telephone [facility] [address] [place] [address] Antione Segura PA-C Medication Question (Gabapentin) 01/18/2025 Episode Documentation Update [facility] [address] [place] [phone] Mayra Burton 01/17/2025 2:30 PM EDT Home Care Visit [facility] [address] [place] [address] Krysta Charles EXECUTIVE COMPENSATION ANALYST HOME VISIT 01/17/2025 Telephone [facility] [address] [place] [address] Elida Lindquist, HUA VNA Orders 01/15/2025 Episode Documentation Update [facility] [address] [place] [phone] Mayra Burton 01/14/2025 Home Care Visit [facility] [address] [place] [phone] Raya Howard, PT TELEPHONE ENCOUNTER 01/12/2025 [facility] [address] [place] [address] Antione Segura PA-C Medication Refill 01/12/2025 Telephone [facility] [address] [place] [address] Antione Segura PA-C VNA Orders 01/11/2025 10:00 AM EDT Home Care Visit [facility] [address] [place] [phone] Shakira Hand, HUA SN HOME VISIT 01/11/2025 Episode Documentation Update [facility] [address] [place] [phone] Mayra Burton 01/10/2025 12:30 PM EDT Home Care Visit [facility] [address] [place] [phone] Shakira Hand, HUA SN OASIS RESUMPTION OF CARE (VERONIKA) 01/10/2025 Telephone [facility] Internal Medicine [address] [place] [address] Antione Segura PA-C Referral (Pulmonology referral update to urgent) 01/09/2025 3:00 PM EDT Home Care Visit [facility] [address] [place] [phone] Shakira Hand, HUA SN OASIS TRANSFER 01/09/2025 Home Health Resumption of Care Planning [facility] [address] [place] [phone] Koki Simons RN from Last 3 Months Immunizations Immunization [...] high school, GED, job training, learning the Wallisian language, technical skills, or developing parenting skills)? [...] F) 04/05/2025 2:04 PM EDT Respiratory Rate 16 03/28/2025 9:41 AM EDT Oxygen Saturation 94% 04/05/2025 2:04 PM EDT Inhaled Oxygen Concentration - - Weight 94.3 kg (208 lb) 03/28/2025 9:41 AM EDT Height 156.2 cm (5' 1.5 ) 03/28/2025 9:41 AM EDT Body Mass Index 38.67 03/28/2025 9:41 AM EDT Plan of Treatment Upcoming Encounters Date Type Department Care Team (Late st Contact Info) Description 04/09/2025 3:00 PM EDT Home Care Visit [facility] [address] [place] [phone] Kennedy, Thao L [address] [place] [address] [email or web address] 04/12/2025 1:30 AM EDT Home Care Visit [facility] [address] [place] [phone] Shakira Hand, HUA [address] [place] [address] [email or web address] 04/12/2025 3:00 PM EDT Home Care Visit [facility] [address] [place] [phone] Kennedy, Thao L [address] [place] [phone] [email or web address] 04/16/2025 3:00 PM EST Home Care Visit [facility] [address] [place] [phone] Kennedy, Thao L [address] [place] [phone] [email or web address] 04/18/2025 1:30 AM EST Home Care Visit [facility] [address] [place] [phone] Shakira Hand, HUA [address] [place] [address] [email or web address] 04/19/2025 2:00 AM EST Home Care Visit [facility] [address] [place] [phone] Kennedy, Thao L [address] [place] [address] [email or web address] 04/23/2025 2:00 AM EST Home Care Visit [facility] [address] [place] [phone] Kennedy Thao Jose [address] [place] [address] [email or web address] 04/24/2025 9:40 AM EST Office Visit [facility] Internal Medicine [address] [place] [address] Antione Segura PA-C [address] [place] [address] [email or web address] 04/25/2025 1:30 AM EST [facility]ointment [facility] [address] [place] [address] Shakira Hand RN [address] [place] [address] [email or web address] 06/25/2025 9:30 AM EST Telemedicine [facility] Neurology [address] [place] [phone] Jn Cardoza MD [address] [facility], 2nd [place] [address] [email or web address] Health Maintenance Due Date Last Done Comments COLOGUARD 01/09/2008 FIT TEST 01/09/2008 FOBT 01/09/2008 SIGMOIDOSCOPY 01/09/2008 VIRTUAL COLONOSCOPY 01/09/2008 RSV VACCINE (1 - Risk 50-74 years 1-dose series) 2013 ZOSTER VACCINES (1 of 2) 2013 PAP SMEAR 02/21/2023 02/22/2020, 02/12, 08/27/2014 COLONOSCOPY 12/05/2023 12/04/2013, 12/04/2013 COLORECTAL CANCER SCREENING 12/05/2023 Adult Td,Tdap Booster 12/30/2023 12/29/2013 INFLUENZA VACCINE (#1) 2025 , 07/29/2023, 02/27/2022, Additional history exists COVID-19 VACCINE ( season) 2025 07/18/2021, 10/02/2020, 09/11/2020 REPEAT PHQ 04/21/2025 03/21/2025, 03/21/2025 BLOOD PRESSURE 10/04/2025 04/05/2025 LUNG CANCER SCREENING (LDCT Only) 12/21/2025 12/21/2024, 08/27/2022, 09/05/2021, Additional history exists CREATININE LEVEL 03/06/2026 03/06/2025, , 12/21/2024, Additional history exists POTASSIUM LEVEL 03/06/2026 03/06/2025, 01/13, 12/21/2024, Additional history exists DEPRESSION SCREENING 03/21/2026 03/21/2025, 03/21/20 SMOKING Hx and SMOKELESS TOBACCO SCREENING 03/28/2026 03/28/2025 LIPID PANEL 08/22/2026 08/22/2021, 08/12, 02/26/2020, Additional [...] Routine 04/06/2025 12:20 PM EDT Parotid nodule CT HEAD WITHOUT CONTRAST Urgent/patient waiting 03/28/2025 2:46 PM EDT Dizziness and giddiness OUTSIDE XR CHEST REPORT ONLY Routine 03/13/2025 8:23 AM EDT OUTSIDE POTASSIUM LEVEL Routine 03/06/2025 OUTSIDE ALT LEVEL Routine 03/06/2025 OUTSIDE SERUM CREATININE LEVEL Routine 03/06/2025 OUTSIDE IMAGING Routine 02/17/2025 11:14 AM EDT OUTSIDE US BREAST REPORT ONLY Routine 02/14/2025 4:39 PM EDT HM MAMMOGRAPHY Routine 02/14/2025 2:39 PM EDT OUTSIDE POTASSIUM LEVEL Routine 02/08/2025 OUTSIDE SERUM CREATININE LEVEL Routine 02/08/2025 OUTSIDE ALT LEVEL Routine 02/05/2025 LDCT PROCEDURE FOR RESULT ENTRY ONLY Routine 12/21/2024 LIPID PANEL Routine 08/22/2021 8:13 AM EST Mixed hyperlipidemia PAP TEST Routine 02/22/2020 12:00 AM EDT HEPATITIS C ANTIBODY, QUALITATIVE Routine 05/25/2019 10:24 AM EST Need for hepatitis C screening test COLONOSCOPY FOR RESULT ENTRY ONLY Routine 12/04/2013 from Last 3 Months or Most Recently Relevant to Health Maintenance Results * US Soft Tissues of Head [...] closedloop communication system. us Antione Segura PA-C IMMadyson US HEAD/NECK NON THYROID Final Result * CT HEAD WITHOUT CONTRAST (03/28/2025 2:46 PM EDT) MGB IMG CUTTING TOOL SHARPENER COMMENT see results [facility] Anatomical Region Laterality Modality Head Computed Tomogra phy 03/28/2025 2:54 PM EDT Impressions 03/28/2025 3:15 PM EDT 1. No acute intracranial findings. No evidence of acute infarct or hemorrhage. 2. Left parotid gland nodular density. Follow-up parotid ultrasound or neck CT with contrast recommended. A clinically significant result was initiated on 03/28/2025 3:15 PM, Message ID [id number]. Narrative 03/28/2025 3:[address] HEAD WITHOUT CONTRAST Referring clinician's provided indication for this examination [facility]: * Dizziness, persistent/recurrent, cardiac or vascular cause suspected TECHNIQUE: Multidetector-row CT of the head was performed without intravenous contrast using tailored dose modulation techniques. Images were reconstructed in the axial, coronal, and sagittal planes. COMPARISON: None. FINDINGS: Brain Parenchyma: No midline shift, mass effect, parenchymal hemorrhage, or evidence of acute territorial infarct. 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 There are areas of hypodensity in the periventricular white matter, likely a manifestation of chronic small vessel disease. Ventricular System and Extra-Axial Spaces: No hydrocephalus, midline shift, or extra-axial fluid collection. Osseous and Extracranial Structures: No orbital abnormality. Sinuses and mastoids are grossly clear. No suspicious osseous abnormality. The left parotid gland is not completely included in the volume of acquisition and appears smaller. There is a nodular density measuring up to 1.3 cm. Visualized right parotid gland is unremarkable. Other extracranial soft tissues are unremarkable. Procedure Note Whitney Elmore MD - 03/28/2025 CT HEAD WITHOUT CONTRAST Referring clinician's provided indication for this examination in [facility]: *Dizziness, persistent/recurrent, cardiac or vascular cause suspected TECHNIQUE: Multidetector-row CT of the head was performed withoutintravenous contrast using tailored dose modulation techniques. Imageswere reconstructed in the axial, coronal, and sagittal planes. COMPARISON: None. FINDINGS: Brain Parenchyma: No midline shift, mass effect, parenchymal hemorrhage,or evidence of acute territorial infarct. Small chronic infarcts in theright tony radiata. There are areas of hypodensity in theperiventricular white matter, likely a manifestation of chronic smallvessel disease. Ventricular System and Extra-Axial Spaces: No hydrocephalus, midlineshift, or extra-axial fluid collection. Osseous and Extracranial Structures: No orbital abnormality. Sinuses and mastoids are grossly clear. No suspicious osseous abnormality. The left parotid gland is not completely included in the volume ofacquisition and appears smaller. There is a nodular density measuring upto 1.3 cm. Visualized right parotid gland is unremarkable. Otherextracranial soft tissues are unremarkable. IMPRESSION: 1. No acute intracranial findings. No evidence of acute infarct orhemorrhage. 2. Left parotid gland nodular density. Follow-up parotid ultrasound orneck CT with contrast recommended. A clinically significant result was initiated on 03/28/2025 3:15 PM,Message ID [id number]. Result [facility] Antione Segura PA-C IMG CT HEAD/NECK Final Result * Outside XR??Chest Report Only (03/13/2025 8:23 AM EDT) Result [facility] Provider IMG XR CHEST Final Res ult * Outside Potassium Level (03/06/2025) Only the most recent of2 resultswithin the time period is included. Potassium level - External 3.8 3.4 - 5.0 mmol/L Result [facility] Provider LAB BLOOD ORDERABLES Mariya l Result * Outside Serum Creatinine Level (03/06/2025) Only the most recent of2 resultswithin the time period is included. Creatinine, serum - External 0.81 0.8 - 1.3 mg/dL Result [facility] Provider MD LAB BLOOD ORDERABLES Mariya l Result * Outside ALT Level (03/06/2025) Only the most recent of2 resultswithin the time period is included. ALT - External 19 5 - 30 U/L us Historical Provider LAB BLOOD ORDERABLES Mariya l Result * Outside Imaging Report Only (02/17/2025 11:14 AM EDT) Result [facility] Historical Provider MD DAWKINS XR CHEST Final Res ult * Outside US Breast Report Only (02/14/2025 4:39 PM EDT) Historical Provider MD DAWKINS US BREAST Final Res ult * HM MAMMOGRAPHY FOR RESULT ENTRY ONLY (02/14/2025 2:39 PM EDT) Historical Provider HEALTH MAINTENANCE Final Result * HM LDCT PROCEDURE FOR RESULT ENTRY ONLY (12/21/2024) LDCT - External CTA chest, juanito pulm nodules Result [facility] Historical Provider HEALTH MAINTENANCE Final Result * (ABNORMAL) Lipid panel (08/22/2021 8:13 AM EST) HDL 54 mg/dL [facility] Comment: Interpretation <40 mg/dL: Low HDL cholesterol (major risk factor for CHD) Greater than or equal to 60 mg/dL: High HDL cholesterol ( negative risk factor for CHD) HDL - cholesterol is affected by a number of factors, e.g. smoking, excerise, hormones, sex and age. CHOLESTEROL 237 0 - 240 mg/dL [facility] TRIGLYCERIDES 201(H) 30 - 160 mg/dL [facility] LDL 143(H) 50 - 129 mg/dL [facility] Comment: LDL levels in terms of risk for coronary heart disease: <100 mg/dL: Optimal 100-129 mg/dL: Near or above optimal 130-159 mg/dL: Borderline high 160-189 mg/dL: High >190 mg/dL: Very High CARDIAC RISK RATIO 4.4 3.3 - 4.4 C [facility] Blood 08/22/2021 8:13 AM EST 08/22/2021 8:17 AM EST Result [facility] Jennifer L [place] BILINGUAL CASE MANAGER LAB BLOOD ORDERABLES Final Resu lt [address] [address] * Pap Smear (02/22/2020 12:00 AM EDT) 02/22/2020 02/23/2020 8:2 1 AM EDT Narrative SEE NARRATIVE - 02/27/2020 11:20 AM EDT [address] [address] Childhood Teacher: Perla Luis MD [employer] Cytology Report FINAL DIAGNOSIS A. PAP SMEAR [...] 52, 56, 58, 59, 66, 68) by [employer] On[employer] HR-HPV analysis. Clinical correlation is advised. This HPV test was performed at [facility], [address] [place] [address]. This test has been FDA approved for [facility] cervical cytology specimens. The accuracy and precision of this test for all other specimen sources has been verified in the Cytopathology Laboratory of the [facility] and has not been cleared or approved by the U.S. Food and Drug Administration. Clinical correlation is advised. CLINICAL HISTORY Date of Last Menstrual Period: 2009 Menstrual History: Post Menopausal Other Clinical Conditions: Screening Pap SPECIMEN SOURCE A: PAP SMEAR (SUREPATH) CE Patient Name: MAYRA CONSTANTINONa : 1965 (Age: 55) Sex: F Institution: [facility] Location: [facility] Date of Collection: 02/22/2020 Date of Reported: 02/27/2020 11:20 Results to: Jennifer Duke MSN, BSN us Jennifer Duke BILINGUAL CASE MANAGER CYTOLOGY ORDERABLES Final Resul t SEE NARRATIVE * Hepatitis C antibody, qualitative (05/25/2019 10:24 AM EST) HCV NON-REACTIV E NON-REACTI VE [facility] Blood 05/25/2019 10:2 4 AM EST 05/25/2019 10:26 AM EST us Jennifer Duke NP LAB BLOOD ORDERABLES Final Resu lt Performing Organization Address City/[facility]/ZIP Co de Phone Number [address] [address] * COLONOSCOPY FOR RESULT ENTRY ONLY (12/04/2013) Colonoscopy repeat 10 yrs us Historical Provider HEALTH MAINTENANCE Final Result from Last 3 Months or Most Recently Relevant to Health Maintenance Insurance [facility] MEDICARE A [facility] MED[facility] A [facility] [place] [address] [address] [place] [address] [facility] A [facility] MEDICARE A Marielle RAYMUNDO [place], [place] [facility] MEDICARE A [facility] A Advance Directives For more information, please contact: [phone] (9AM - 5PM [facility], Wednesday-Wednesday) Documents on File Type Date Recorded Patient News Assignment Editor Expl anation Healthcare Proxy 03/28/2025 [facility] Health Care Proxy Form scan 03/28/2025 [facility]OL[facility] 02/15/2025 MOLST * Full Code (Latest Code Status on File) Date Activated Date Inactivated Comments 02/15/2025 9:52 AM Question Answer Comments Code Status Confirmed With: Patient Care Teams Lens Maker Relationship Specialty Start Date End Date Antione Segura PA-C [address] [place] [address] [email or web address] PCP - General Physician It Administrator 10/12/24 Jn Cardoza MD [address] [place] [address], [address] [place] [address] [email or web address] Neurology 02/03/24 Denys Henriquez MD [address] [place] [address] [place] [address] Pulmonary Disease 02/03/24 Rhett Cortez MD [address] [place] [id number] [email or web address] Insurance Assigned Provider 01/20/25 Additional Source Comments The information contained in this document represents components of the legal health record. It is not the complete legal health record.[facility]
--- OUTSIDE RECORDS SUMMARY | 2025-04-08 02:32 | XMS_ITS | Encounter Summary ---
Author Organization [facility] Address [address] [place] [phone] Phone Care Team Providers Care Processing Assistant Name Role Phone Charbel Webber MD Unavailable Alverto Gandara MD Unavailable Maikel Rawls MD Unavailable [phone] Lang Germain MD Primary Care Provider Jennifer Duke BATTER MIXER HELPER Primary Care Provider Lang Germain MD Primary Care Provider Jennifer Duke BATTER MIXER HELPER Primary Care Provider Lang Germain MD Primary Care Provider Jennifer Duke BATTER MIXER HELPER Primary Care Provider Lang Germain MD Unavailable Lang Germain MD Primary Care Provider Jennifer Duke BATTER MIXER HELPER Primary Care Provider Lang Germain MD Primary Care Provider Jennifer Duke BATTER MIXER HELPER Primary Care Provider Lang Germain MD Primary Care Provider [phone] Jennifer Duke BATTER MIXER HELPER Primary Care Provider [phone] Lang Germain MD Primary Care Provider [phone] Jennifer Duke BATTER MIXER HELPER Unavailable [phone] Jennifer Duke BATTER MIXER HELPER Primary Care Provider [phone] Lang Germain MD Primary Care Provider [phone] Jennifer Duke BATTER MIXER HELPER Primary Care Provider [phone] Aleksandar Sirishafrancisca Kendall FLOOR WINDER Primary Care Provider [phone] Jn Cardoza MD Unavailable Denys Henriquez MD Unavailable [phone] Liyah Patterson MD Unavailable Liyah Patterson MD Primary Care Provider [phone] Antione Segura PA-C Primary Care Provider [phone] Rhett Cortez MD Unavailable Reason for Referral * MRI/CAT Scan - Closed Specialty Diagnoses / Procedures Referred By Contac t Referred To Contact Procedures CT Head Outside (No Interpretation) System, Provider Not In, PhD [address] [address] Referral ID Status Reason Start Date Expiration Date Visits Re quested Visits Authorized [id number] Closed 06/20/2018 06/20/2019 1 1 * MRI/CAT Scan - Closed Specialty Diagnoses / Procedures Referred By Contac t Referred To Contact Procedures CT Face Outside (No Interpretation) System, Provider Not In, PhD [address] [address] Referral ID Status Reason Start Date Expiration Date Visits Re quested Visits Authorized [id number] Closed 06/20/2018 06/20/2019 1 1 Encounter Details Date Type Department Care Team (Late st Contact Info) Description 06/20/2018 Ancillary Orders [facility],Outside Imaging [address] [place] [address] System, Provider Not In, [place] [address] Social History Tobacco Use Types Packs/Day Years [...] Care Visit [facility] [address] [place] [phone] Kennedy, Thao L [address] [place] [phone] [email or web address] 04/12/2025 1:30 AM EDT Home Care Visit [facility] [address] [place] [phone] Shakira Hand, HUA [address] [place] [address] [email or web address] 04/12/2025 3:00 PM EDT Home Care Visit [facility] [address] [place] [phone] Kennedy, Thao L [address] [place] [phone] [email or web address] 04/16/2025 3:00 PM EST Home Care Visit [facility] [address] [place] [phone] Kennedy, Thao L [address] [place] [phone] [email or web address] 04/18/2025 1:30 AM EST Home Care Visit [facility] [address] [place] [phone] Shakira Hand RN [address] [place] [address] 04/19/2025 2:00 AM EST Home Care Visit [facility] [address] [place] [address] Kennedy, Thao L [address] [place] [address] 04/23/2025 2:00 AM EST Home Care Visit [facility] [address] [place] [phone] Kennedy, Thao L [address] [place] [phone] 04/24/2025 9:40 AM EST Office Visit [facility] Internal Medicine [address] [place] [address] Antione Segura PA-C [address] [place] [address] 04/25/2025 1:30 AM EST Appointment [facility] [address] [place] [address] Shakira Hand RN [address] [place] [address] 06/25/2025 9:30 AM EST Telemedicine [facility] Neurology [address] [place] [address] Jn Cardoza MD [address] [facility], [address] [place] [address] documented as of this encounter Results * [...] documented as of this encounter Care Teams Processing Assistant Relationship Specialty Start Date End Date Lang Germain MD [address] [place] [address] PCP - General Internal Medicine 06/13/18 06/30/18 Jennifer Duke BATTER MIXER HELPER [address] [place] [address] PCP - General Family Medicine 07/01/18 08/02/18 Lang Germain MD [address] [place] [address] PCP - General Internal Medicine 08/03/18 09/07/18 Jennifer Duke BATTER MIXER HELPER [address] [place] [address] [email or web address] PCP - General Family Medicine 09/08/18 09/14/18 Lang Germain MD [address] [place] [address] [email or web address] PCP - General Internal Medicine 09/15/18 10/02/18 Jennifer Duke NP [address] [place] [address] [email or web address] PCP - General Family Medicine 10/03/18 10/05/18 Lang Germain MD [address] [place] [address] [email or web address] PCP - General Internal Medicine 10/06/18 10/12/18 Jennifer Duke NP [address] [place] [address] [email or web address] PCP - General Family Medicine 10/13/18 11/09/18 Lang Germain MD [address] [place] [address] [email or web address] PCP - General Internal Medicine 11/10/18 11/22/18 Jennifer Duke BATTER MIXER HELPER [address] [place] [address] [email or web address] PCP - General Family Medicine 11/23/18 11/30/18 Lang Germain MD [address] [place] [address] [email or web address] PCP - General Internal Medicine 12/01/18 12/13/18 Jennifer Duke, BATTER MIXER HELPER [address] [place] [address] [email or web address] PCP - General Family Medicine 12/14/18 11/12/19 Lang Germain MD [address] [place] [address] [email or web address] PCP - General Internal Medicine 11/13/19 12/03/19 Jennifer Duke NP [address] [place] [phone] [email or web address] PCP - General Family Medicine 12/04/19 01/23/20 Lang Germain MD [address] [place] [address] [email or web address] PCP - General Internal Medicine 01/24/20 01/30/20 Jennifer Duke BATTER MIXER HELPER [address] [place] [phone] [email or web address] PCP - General Family Medicine 01/31/20 06/22/23 Sirisha Huertas FNP [address] [place] [phone] [email or web address] PCP - General Nurse Practitioner 06/23/23 08/03/24 Liyah Patterson MD [address] [place] [address] [email or web address] PCP - General Family Medicine 08/04/24 10/11/24 Antione Segura PA-C [address] [place] [address] [email or web address] PCP - General Physician Clin Nurse Spec 10/12/24 Charbel Webber MD [address] [place] [address], [address] [place] [address] [email or web address] Historical LMR Provider 04/01/17 0 Alverto Gandara MD [address] [place] [phone] [email or web address] Historical LMR Provider 04/01/17 12/03/19 Maikel Rawls MD [address] [place] [phone] [email or web address] LMR Provider 04/01/17 12/03/19 Lang Germain MD [address] [place] [address] [email or web address] Insurance Assigned Provider 09/18/23 02/19/24 Jennifer Duke NP [address] [place] [phone] [email or web address] Nurse Practitioner Family Medicine 11/13/19 01/30/20 Jn Cradoza MD [address] [place] [phone] Neurology 02/03/24 Denys Henriquez MD [address] [place] [address] [place] [address] Pulmonary Disease 02/03/24 Liyah Patterson MD [address] [place] [address] [email or web address] Insurance Assigned Provider 02/19/24 01/20/25 Rhett Cortez MD [address] [place] [phone] Insurance Assigned Provider 01/20/25 documented as of this encounter Additional Source Comments The information contained in this document represents components of the legal health record. It is not the complete legal health record.[facility]
[2025-04-08] MEDS: Albuterol Sulfate 5 MG, Albuterol Sulfate (0.083%) 2.5 MG 7.5 MG INHALE (02:39)
[2025-04-08 02:51] LABS: Hematocrit 37.1 % (37.0-47.0); Hemoglobin 11.6 g/dl (12.0-16.0); Imm Gran Abs Auto 0.02 X10*3/uL (0.00-0.03); Imm Gran Pct Auto 0.3 % (0.0-0.4); Lymphocytes Absolute Auto 2.2 X10*3/uL (1.2-4.9); MANUAL DIFF FLAG NO; Mean Corpuscular HGB Conc 31.3 g/dl (31.0-35.0); Mean Corpuscular Hemoglobin 30.4 pg (27.0-33.0); Mean Corpuscular Volume 97.1 fL (80.0-98.0); NRBC Abs Auto 0.000 X10*3/uL (0.0-0.012); NRBC Pct Auto 0.0 /100WBC (0.0-0.2); Platelet Count 311 X10*3/uL (160-400); Red Blood Count 3.82 X10*6/uL (4.20-5.50); White Blood Count 7.8 X10*3/uL (4.8-10.8)
[2025-04-08 02:55] LABS: ABG Refer to POC result
[2025-04-08 03:03] LABS: ABG HCO3 39 mmol/L (22-26); ABG O2 % Saturation 95.0 %
[2025-04-08 03:04] LABS: Alanine Aminotransferase 18 U/L (0-31); Albumin Level 4.0 g/dL (3.5-5.0); Alkaline Phosphatase 63 U/L (39-117); Anion Gap 13 (12-20); Aspartate Amino Transferase 27 U/L (5-31); Blood Urea Nitrogen 15 mg/dL (9-16); Calcium 9.5 mg/dL (8.4-10.2); Carbon Dioxide 32 mmol/L (22-29); Chloride 104 mmol/L (96-108); Creatinine Clr Calc Pharmacy 83.0; Estimated Glomerular Filt Rate > 60; Magnesium 2.1 mg/dL (1.6-2.6); Potassium 3.7 mmol/L (3.3-5.1); Sodium 145 mmol/L (135-145); Total Protein 7.1 g/dL (6.5-8.0)
[2025-04-08 03:09] LABS: NT Pro B Type Natriuretic Pept 115.5 pg/mL (<300); Troponin-I High Sensitivity 10.8 ng/L (<3.5-17.0)
--- NOTE | 2025-04-08 03:24 | PC.NURSE ---
pt on BiPap. tolerating well. resting comfortably.
--- NOTE | 2025-04-08 07:00 | PC.NURSE ---
Care of Pt assumed at change of shift. Pt is currently sleeping. VSS Bipap in place. NAD noted at this time. Admission pending.
--- NOTE | 2025-04-08 08:07 | PC.NURSE ---
Pt wakes and removed Bipap; she reports the mask hurts her face and feels she messer not need it. RT aware and comes to bedside to see Pt. Pt sats @ 93% with 2L O2 via NC. She denies feeling SOB and Pt demands home medications. Med list reviewed with Pt to confirm current doses/frequency. Med Rec completed with information provide by Pt. Pt reports ongoing dental pain to R side of mouth. She reports multiple upper and lower areas of pain that increase with chewing. Inspection of mouth reveals Fx teeth but no evidence of abscess, sores, or bleeding. Awaiting hospitalist.
[2025-04-08 08:29] LABS: VBG HCO3 32 mmol/L (22-26); VBG O2 % Saturation 100.0 %
[2025-04-08 08:31] LABS: Venous Blood Gas Refer to POC result
--- NOTE | 2025-04-08 09:03 | PHA.MEDREC ---
Pharmacy Consult ? Medication Reconciliation Pharmacy has completed the medication reconciliation, spoke to patient who confirmed there are no changes since her last admission. Pt states she takes oxcarbazapine BID, not TID, also takes prednisone 5mg Q48H on even days.
--- NOTE | 2025-04-08 09:05 | PM.IMHP ---
History of Present Illness Date of Service: 04/08/25 Chief Complaint: sob 60F PMH hypoxic and hypercapnic respiratory failure on 2 L home O2, JUANITO, trigeminal neuralgia, morbid obesity, mood disorder, hypertension, hyperlipidemia presented with shortness of breath. Patient states she is feeling well day prior to presentation other than toothache on left lower side. Due to that toothache was unable to wear BIPAP that night. She reports feeling well when she fell asleep but then woke up suddenly in early a.m. with severe shortness breath checked her pulse oximeter which read in the 70s. Called EMS. When EMS arrived was placed on 100% oxygen. In ED, ABG with pH of 7.36 and pCO2 of 69. Was placed on BiPAP and improved to 2 pCO2 of 54. Chest x-ray unremarkable. Patient denies chest pain, fever, chills. Review of Systems Review of Systems: Yes all other systems are reviewed and are negative [facility] Medical History Chronic lung disease Morbid obesity Pulmonary nodules Diastolic heart failure Chronic lung disease Hypoxia Panic disorder Hypertension Chronic hypercapnic respiratory failure Aortic stenosis Asthma Hypogammaglobulinemia Smoker JUANITO (obstructive sleep apnea) Elevated troponin COPD (chronic obstructive pulmonary disease) Trigeminal neuralgia Mixed hyperlipidemia Peripheral neuropathy Tobacco use disorder Mood disorder Surgical History History of esophagogastroduodenoscopy (EGD) History of colonoscopy History of lumbar discectomy History of tubal ligation History of excision of mass History of shoulder surgery Social History Household Members: None Household Members Other:: dog Housing: Condominium Do you presently have visiting nurse or other home services: Yes Alcohol intake: current Alcohol intake frequency: holidays/special occasions only Alcohol type: hard liquor Comment: refusing bed alarm Patient Tobacco Use Status: Former Tobacco user Tobacco use type: Cigarette Cigarette Packs Per Day: 4 Cigarettes Per Day: 80.0 Years Smoked: 40 e-Cigarette/Vaping Use: Never Used Second Hand Smoke Exposure: No Substance Use Type: Marijuana Advance Directives: Yes Advance Directives on File: Yes Advance Directives Date on File: 03/09/23 service: No Meds Allergies Allergy/AdvReac Type Severity Reaction Status Date / Time Iodinated Contrast Media (IV Allergy Intermediate HIVES Verified 04/08/25 02:05 CONTRAST) latex (LATEX) Allergy Unknown RASH Verified 04/08/25 02:05 adhesive tape Allergy Rash Verified 04/08/25 02:05 morphine (MORPHINE) AdvReac Unknown VOMITING Verified 04/08/25 02:05 Active Medications: Current Medications Acetaminophen/Butalbital/Caffeine (Butalb/Acetamin/Caff 50/325/40 Tablet) 1 tab PO DAILY MRX1 PRN PRN Reason: Migraine Headache Albuterol Sulfate (Albuterol Sulfate 90 Mcg 8 Gm Inhaler) 2 puff INHALE Q4H PRN PRN Reason: Shortness Of Breath Or Wheezing Albuterol/Ipratropium (Albuterol/Iprat 2.5/0.5mg 3 Ml Ampul.Neb) 3 ml INHALE Q4H PRN PRN Reason: for dyspnea Aripiprazole (Aripiprazole 5 Mg Tablet) 5 mg PO DAILY@0600 [facility] Aspirin (Aspirin Enteric Coated 81 Mg Tablet.) 81 mg PO DAILY@1999 [facility] Atorvastatin Calcium (Atorvastatin Calcium 80 Mg Tablet) 80 mg PO DAILY@1999 [facility] Baclofen (Baclofen 20 Mg Tablet) 20 mg PO TID@599,1199,1999 [facility] Calcium Carbonate (Calcium Carbonate 750 Mg Tab.Chew) 750 mg PO Q4H PRN PRN Reason: Heartburn Duloxetine HCl (Duloxetine Hcl 60 Mg Capsule.) 60 mg PO BID@599,1999 [facility] Enoxaparin Sodium (Enoxaparin Sodium 40 Mg/0.4 Ml Syringe) 40 mg SUBCUT Q24H [facility] Gabapentin (Gabapentin 400 Mg Capsule) 1,200 mg PO TID@0600,1199,1999 [facility] Lorazepam (Lorazepam 0.5 Mg Tablet) 0.5 mg PO BEDTIME@1999 [facility] Lorazepam (Lorazepam 0.5 Mg Tablet) 0.5 mg PO DAILY PRN PRN Reason: Anxiety Magnesium Hydroxide (Milk Of Magnesia 30 Ml Oral.Susp) 30 ml PO DAILY PRN PRN Reason: Constipation Magnesium Oxide (Magnesium Oxide 400 Mg Tablet) 400 mg PO DAILY [facility] Melatonin (Melatonin 3 Mg Tablet) 6 mg PO BEDTIME PRN PRN Reason: Insomnia Non-Formulary Medication (Acetaminophen) 1,300 mg PO Q8H PRN PRN Reason: Pain, Mild 1-3,fever,headache Non-Formulary Medication (Eepzbpokzw-Zfkcbxrv-Mrtfhzdfql [Breztri Aerosphere]) 2 inhalation INHALE BID@0600,1800 [facility] Omeprazole (Omeprazole 20 Mg Capsule.Dr) 20 mg PO DAILY@0600 [facility] Oxcarbazepine (Oxcarbazepine 300 Mg Tablet) 300 mg PO BID@06,1999 [facility] Oxycodone HCl (Oxycodone Hcl Immed Release 5 Mg Tablet) 5 mg PO Q6H PRN PRN Reason: Severe Pain (Scale Score 7-10) Polyethylene Glycol (Polyethylene Glycol 3350 17 Gm Powd.Pack) 17 gm PO DAILY PRN PRN Reason: Constipation Prazosin HCl (Prazosin Hcl 1 Mg Capsule) 2 mg PO DAILY@1999 [facility]; Protocol Prednisone (Prednisone 5 Mg Tablet) 5 mg PO Q48H [facility] Roflumilast (Roflumilast 500 Mcg Tablet) 500 mcg PO DAILY@06 [facility] Sodium Chloride (0.9 % Sodium Chloride Flush 3 Ml Syringe) 3 ml IVFLUSH QSHIFT [facility] Valsartan (Valsartan 40 Mg Tablet) 40 mg PO DAILY@06 [facility]; Protocol Verapamil HCl (Verapamil Hcl 120 Mg Tablet) 120 mg PO BID@599,1999 [facility]; Protocol Home Medications ?Medication ?Instructions ?Recorded ?Confirmed ?Last Taken ?Type atorvastatin 80 mg tablet 80 mg PO DAILY@199903/04/23 04/08/25 04/07/25 History ifvhwrhjlb-aitwiwnbminvk-dwzyvsij 1 tab PO DAILY MRX1 PRN Migraine 03/04/23 04/08/25 04/07/25 History 50 mg-325 mg-40 mg tablet Headache duloxetine 60 mg capsule,delayed 60 mg PO BID@0600,199903/04/23 04/08/25 04/07/25 History release gabapentin 300 mg capsule 1,200 mg PO TID@06,1199,199903/04/23 04/08/25 04/07/25 History hyoscyamine sulfate 0.125 mg tablet 0.25 mg PO Q6H PRN Abdominal 03/04/23 04/08/25 04/07/25 History Discomfort Oxygen Home Use 04/16/23 02/26/25 10/28/24 History prazosin 2 mg capsule 2 mg PO DAILY@2000 1104/08/25 04/07/25 History albuterol sulfate 90 mcg/actuation 2 puff inhalation Q4H PRN 01/31/24 04/08/25 04/07/25 History aerosol inhaler Shortness Of Breath Or Wheezing aspirin 81 mg tablet,delayed 81 mg PO DAILY@199905/22/24 04/08/25 04/07/25 History release calcium 600 mg (as 1 tab PO DAILY@199906/20/24 04/08/25 04/07/25 History carbonate)-vitamin D3 5 mcg (200 unit) tablet baclofen 20 mg tablet 20 mg PO TID@0600,1200,199910/29/24 04/08/25 04/07/25 History aripiprazole 5 mg tablet (Abilify) 5 mg PO DAILY@0612/01/24 04/08/25 04/07/25 History oxcarbazepine 300 mg tablet 300 mg PO BID@06,199912/21/24 04/08/25 04/07/25 History lorazepam 0.5 mg tablet 0.5 mg PO BEDTIME@1999 MODERATE 01/04/25 04/08/25 04/07/25 History Anxiety polyethylene glycol 3350 17 17 g PO DAILY PRN Constipation 01/04/25 04/08/25 04/07/25 History gram/dose oral powder (Miralax) budesonide 160 mcg-glycopyr 9 2 inh inhalation BID@0600,1800 02/05/25 04/08/25 04/07/25 History mcg-formot 4.8 mcg/actuation HFA inhaler (Breztri Aerosphere) lorazepam 0.5 mg tablet 0.5 mg PO DAILY PRN Anxiety 02/05/25 04/08/25 04/07/25 History roflumilast 500 mcg tablet 500 mcg PO DAILY@0600 02/05/25 04/08/25 04/07/25 History (Daliresp) valsartan 40 mg tablet 40 mg PO DAILY@0600 02/05/25 04/08/25 04/07/25 History verapamil 120 mg tablet 120 mg PO BID@0600,199902/05/25 04/08/25 04/07/25 History omeprazole 20 mg capsule,delayed 20 mg PO DAILY@0603/01/25 04/08/2504/07/25 History release prednisone 5 mg tablet 5 mg PO Q48H 03/01/25 04/08/25 04/06/25 History acetaminophen 650 mg 1,300 mg PO Q8H PRN Pain 03/13/25 04/08/25 04/07/25 History tablet,extended release magnesium oxide 400 mg PO DAILY 03/13/25 04/08/25 04/07/25 History melatonin 3 mg tablet 3 mg PO BEDTIME PRN Insomnia 04/08/25 04/08/25 Unknown History oxycodone 5 mg tablet 5 mg PO Q6H PRN Severe Pain (Scale 04/08/25 04/08/25 04/07/25 History Score 7-10) Physical Exam Vital Signs and Narrative: Vital Signs: Last Vital Signs Temp 98.0 F 04/08/25 02:05 Pulse 84 04/08/25 06:57 Resp 17 04/08/25 06:57 BP 135/66 04/08/25 06:57 Pulse Ox 91 L 04/08/25 06:57 O2 Del Method BiPAP 04/08/25 06:57 FiO2 32 04/08/25 06:57 Oxygen Flow Rate 3 04/08/25 02:05 BMI result Body Mass Index 41.5 General: AO X 3, anxious, dyspneic Resp: CTA bilateral, accessory muscles used CVS: S1,S2,RRR GI: soft, non tender, non distended Neuro: motor grossly intact, alert Psych: appropriate affect, appropriate insight Results Labs 04/08/25 02:46 04/08/25 02:46 Labs: Laboratory Results - last 24 hr 04/08/25 04/08/25 04/08/25 02:46 02:55 07:40 MCV 97.1 MCH 30.4 MCHC 31.3 RDW 14.6 Plt Count 311 MPV 9.1 L Immature Gran % (Auto) 0.3 Neut % (Auto) 60.4 Lymph % (Auto) 27.4 [place] % (Auto) 8.4 Eos % (Auto) 3.1 Baso % (Auto) 0.4 Lymph # (Auto) 2.2 [place] # (Auto) 0.7 Eos # (Auto) 0.2 Baso # (Auto) 0.0 Abs Immat Gran (auto) 0.02 Absolute Neuts (auto) 4.7 Absolute Nucleated RBC 0.000 Nucleated RBC % (auto) 0.0 O2 Saturation 95.0 ABG pH at Pt Temp 7.36 ABG pCO2 at Pt Temp 69 H* ABG pO2 at Pt Temp 73 L ABG HCO3 39 H ABG Base Excess (Actual) 11.3 VBG pH 7.38 VBG pCO2 54 VBG pO2 175 VBG HCO3 32 H VBG O2 Saturation 100.0 VBG Base Excess 6.1 Anion Gap 13 Estim Creat Clear Calc 83.0 Estimated GFR > 60 Random Glucose 160 H Calcium 9.5 Magnesium 2.1 Total Bilirubin 0.2 AST 27 ALT 18 Alkaline Phosphatase 63 Troponin I High Sens 10.8 D NT-Pro-B Natriuret Pep 115.5 Total Protein 7.1 Albumin 4.0 Assessment and Plan (1) Chronic lung disease: Status: Acute Plan 60F PMH hypoxic and hypercapnic respiratory failure on 2 L home O2, JUANITO, trigeminal neuralgia, morbid obesity, mood disorder, hypertension, hyperlipidemia presented with shortness of breath Acute on chronic hypercapnic and hypoxic respiratory failure due to JUANITO and inability to use BiPAP Resolved Monitor, pain control to allow for BiPAP, outpatient dental follow up COPD Continue inhalers, DuoNebs as needed Does not appear to be in active exacerbation Morbid obesity Weight loss recommended Trigeminal neuralgia Continue oxcarbazepine, gabapentin, oxycodone Mood disorder Continue Cymbalta, Abilify Hypertension Continue valsartan, verapamil Hyperlipidemia Statin DVT prophylaxis with Lovenox Full code Quality Stroke Does the patient have a stroke diagnosis?: No VTE Prior VTE?: No VTE Risk Level:: Medical - moderate - high VTE Device Contraindication: Treatment Not Indicated VTE Drug Contraindication: N/A - Med Ordered
[2025-04-08] MEDS: oxyCODONE HCl Immed Release 5 MG TABLET PO ×2 (10:14→17:45)
--- NOTE | 2025-04-08 11:07 | PC.NURSE ---
Pt removes Bipap at approx. 1000 2L O2 via NC placed and Pt satting well at 92%
--- NOTE | 2025-04-08 11:07 | HO.NURTONUR ---
60 yr female comes to ED for SOB and O2 sats of 77% at home. Pt reports she attempted to treat herself with a nebulizer but was unable to get her sats to increase therefore called EMS. A&Ox3 VSS 2L O2 via NC @ baseline. CXR negative Lab work completed, blood gases drawn. Med rec completed with Pt--Pts to bring in Breztri inhaler per request of Pharmacy. Pt has briefs from home but uses bedpan for toileting. 20g to RFA Regular diet
[2025-04-08] MEDS: Albuterol/Iprat 2.5/0.5MG 3 ML AMPUL.NEB INHALE (11:27)
--- NOTE | 2025-04-08 14:58 | PC.NURSE ---
Patient states her will try and bring in her inhaler.
[2025-04-08] MEDS: Aspirin Enteric Coated 81 MG TABLET.DR PO (20:12)
[2025-04-08] MEDS: 0.9 % Sodium Chloride Flush 3 ML SYRINGE IVFLUSH (20:12)
[2025-04-08] MEDS: Albuterol Sulfate 90 MCG 8 GM INHALER 2 PUFF INHALE (20:48)
[2025-04-09 02:39] VITALS: PULSE 90; RESP 20; O2SAT 92
[2025-04-09] MEDS: oxyCODONE HCl Immed Release 5 MG TABLET PO ×2 (02:51→09:01)
[2025-04-09 04:00] VITALS: BP 136/66; PULSE 81; RESP 16; TEMP 35.8; O2SAT 95
[2025-04-09 05:40] VITALS: BP 146/72; PULSE 92
[2025-04-09 05:45] VITALS: BP 146/72
[2025-04-09 06:12] LABS: Venous Blood Gas Refer to POC result
[2025-04-09 06:16] LABS: VBG HCO3 39 mmol/L (22-26); VBG O2 % Saturation 91.0 %
[2025-04-09 06:24] LABS: Hematocrit 38.5 % (37.0-47.0); Hemoglobin 11.9 g/dl (12.0-16.0); Mean Corpuscular HGB Conc 30.9 g/dl (31.0-35.0); Mean Corpuscular Hemoglobin 30.4 pg (27.0-33.0); Mean Corpuscular Volume 98.2 fL (80.0-98.0); NRBC Abs Auto 0.000 X10*3/uL (0.0-0.012); NRBC Pct Auto 0.0 /100WBC (0.0-0.2); Platelet Count 323 X10*3/uL (160-400); Red Blood Count 3.92 X10*6/uL (4.20-5.50); White Blood Count 10.7 X10*3/uL (4.8-10.8)
[2025-04-09 06:40] LABS: Anion Gap 12 (12-20); Blood Urea Nitrogen 13 mg/dL (9-16); Calcium 9.5 mg/dL (8.4-10.2); Carbon Dioxide 31 mmol/L (22-29); Chloride 104 mmol/L (96-108); Creatinine Clr Calc Pharmacy 99.5; Estimated Glomerular Filt Rate > 60; Magnesium 2.2 mg/dL (1.6-2.6); Potassium 4.1 mmol/L (3.3-5.1); Sodium 143 mmol/L (135-145)
[2025-04-09 07:49] VITALS: BP 124/64; PULSE 87; RESP 18; TEMP 36.3; O2SAT 95
--- NOTE | 2025-04-09 08:03 | P.DS_ITS ---
DS: Providers Provider Date of Service: 04/09/25 Date of admission: 04/08/25 09:02 Date of discharge: 04/09/25 Primary care physician: Antione Segura PA-C DS: Diagnosis Discharge Diagnosis (1) Chronic lung disease: Status: Acute DS: Summary Hospital Course Hospital Course: from initial hpi: 60F PMH hypoxic and hypercapnic respiratory failure on 2 L home O2, DAO, trigeminal neuralgia, morbid obesity, mood disorder, hypertension, hyperlipidemia presented with shortness of breath. Patient states she is feeling well day prior to presentation other than toothache on left lower side. Due to that toothache was unable to wear BIPAP that night. She reports feeling well when she fell asleep but then woke up suddenly in early a.m. with severe shortness breath checked her pulse oximeter which read in the 70s. Called EMS. When EMS arrived was placed on 100% oxygen. In ED, ABG with pH of 7.36 and pCO2 of 69. Was placed on BiPAP and improved to 2 pCO2 of 54. Chest x-ray unremarkable. Patient denies chest pain, fever, chills. hospital course: Patient was admitted for acute on chronic hypercapnic and hypoxic respiratory failure due to DAO and inability to use BiPAP due to pain from broken tooth. Was put on BiPAP and shortness breath, hypercapnia and hypoxia resolved. Patient is back to baseline. She was observed overnight and VBG was at her baseline next morning. Shortness of breath at baseline. For COPD did not appear to be in acute exacerbation was continued on inhalers. For morbid obesity weight loss recommended. For trigeminal neuralgia was continued on oxcarbazepine, gabapentin, oxycodone. For mood disorder was continued on Cymbalta and Abilify. For hypertension continued on valsartan verapamil. For hyperlipidemia continued on statin. Time Attestation Discharge Coordination Time (in mins): 32 Quality: Safe Use of Opioids Does Pt have an Active Cancer Diagnosis on the Problem List?: No Quality: Stroke Does the patient have a stroke diagnosis?: No Physical Exam Exam: Exam: General: AO X 3, no acute distress Resp: CTA bilateral, no accessory muscles used CVS: S1,S2,RRR GI: soft, non tender, non distended Neuro: motor grossly intact, alert Psych: appropriate affect, appropriate insight Vital Signs: Vital Signs: Last Vital Signs Temp 97.4 F 04/09/25 07:49 Pulse 87 04/09/25 07:49 Resp 18 04/09/25 07:49 BP 124/64 04/09/25 07:49 Pulse Ox 95 04/09/25 07:49 O2 Del Method Nasal Cannula 04/09/25 07:49 O2 Flow Rate 2 04/09/25 07:49 FiO2 32 04/08/25 06:57 Oxygen Flow Rate 3 04/08/25 02:05 BMI result Body Mass Index 41.5 DS: Data Data Completed and Pending Completed studies during hospitalization [Text1]: Procedures Assistance with Respiratory Ventilation, Less than 24 Consecutive Hours, Continuous Positive Airway Pressure (03/13/25) Introduction of Vasopressor into Peripheral Vein, Percutaneous Approach (12/01/24) Labs on day of discharge: Laboratory Results - last 24 hr 04/08/25 04/09/25 04/09/25 07:40 06:04 06:12 WBC 10.7 RBC 3.92 L Hgb 11.9 L Hct 38.5 MCV 98.2 H MCH 30.4 MCHC 30.9 L RDW 15.0 Plt Count 323 MPV 9.3 L Absolute Nucleated RBC 0.000 Nucleated RBC % (auto) 0.0 VBG pH 7.38 7.40 VBG pCO2 54 63 VBG pO2 175 63 VBG HCO3 32 H 39 H VBG O2 Saturation 100.0 91.0 VBG Base Excess 6.1 12.2 Sodium 143 Potassium 4.1 Chloride 104 Carbon Dioxide 31 H Anion Gap 12 BUN 13 Creatinine 0.61 Estim Creat Clear Calc 99.5 Estimated GFR > 60 Random Glucose 114 Calcium 9.5 Magnesium 2.2 Discharge Plan Discharge Anticipated Discharge Date/Time: 04/09/25 08:01 Patient Disposition: Home, Self-Care Discharge Diagnosis: copd Referrals: Antione Segura PA-C [Primary Care Provider, Internal Medicine] - 1 Week Discharge Medications: Continued ipratropium-albuterol 0.5 mg-3 mg(2.5 mg base)/3 mL solution for nebulization 3 ml inhalation Q4H PRN (Reason: for dyspnea) Qty: 180 11RF baclofen 20 mg tablet 20 mg PO TID@0600,1200,2000 aripiprazole [Abilify] 5 mg tablet 5 mg PO DAILY@0600 oxcarbazepine 300 mg tablet 300 mg PO BID@0600,1999 acetaminophen 650 mg Tablet Extended Release 1,300 mg PO Q8H PRN (Reason: Pain) magnesium oxide 400 mg magnesium Tablet 400 mg PO DAILY oxycodone 5 mg tablet 5 mg PO Q6H PRN (Reason: Severe Pain (Scale Score 7-10)) melatonin 3 mg Tablet 3 mg PO BEDTIME PRN (Reason: Insomnia) atorvastatin 80 mg tablet 80 mg PO DAILY@1999 kwcndtwrkc-ryiovvdiyyojg-mmrh 50-325-40 mg tablet 1 tab PO DAILY MRX1 PRN (Reason: Migraine Headache) hyoscyamine sulfate 0.125 mg tablet 0.25 mg PO Q6H PRN (Reason: Abdominal Discomfort) gabapentin 300 mg capsule 1,200 mg PO TID@0600,1200,1999 duloxetine 60 mg capsule,delayed release(DR/EC) 60 mg PO BID@0600,1999 (DME) nebulizer and compressor Device See Rx Instructions .Route Qty: 1 0RF Rx Instructions: As directed albuterol sulfate 90 mcg/actuation HFA aerosol inhaler 2 puff inhalation Q4H PRN (Reason: Shortness Of Breath Or Wheezing) aspirin 81 mg tablet,delayed release (DR/EC) 81 mg PO DAILY@1999 polyethylene glycol 3350 [Miralax] 17 gram/dose Powder 17 g PO DAILY PRN (Reason: Constipation) lorazepam 0.5 mg tablet 0.5 mg PO BEDTIME@1999 Breztri Aerosphere 160-9-4.8 mcg/actuation HFA aerosol inhaler 2 inh inhalation BID@0600,1800 lorazepam 0.5 mg tablet 0.5 mg PO DAILY PRN (Reason: Anxiety) verapamil 120 mg tablet 120 mg PO BID@0600,1999 valsartan 40 mg tablet 40 mg PO DAILY@0600 Protocol: Hold for SBP< HOLD for SBP < : 90 roflumilast [Daliresp] 500 mcg tablet 500 mcg PO DAILY@0600 prednisone 5 mg tablet 5 mg PO Q48H omeprazole 20 mg capsule,delayed release(DR/EC) 20 mg PO DAILY@0600 calcium carbonate-vitamin D3 600 mg-5 mcg (200 unit) tablet 1 tab PO DAILY@1999 prazosin 2 mg capsule 2 mg PO DAILY@1999 (DME) Oxygen Home Use Kit See Rx Instructions .Route Rx Instructions: As directed Discharge Orders: Discharge Order (Routine); Ordered 04/09/25 Ordered By: Yovany Lee Diet: Advance to usual diet Activity on Discharge: As tolerated Stand Alone Forms: Patient Portal Discharge page Print Language: Spanish Care Plan Goals: prevent episodes Health Concerns: dao, copd Plan of Treatment: follow up with dentist wear bipap at night Assessment: see above
[2025-04-09] MEDS: 0.9 % Sodium Chloride Flush 3 ML SYRINGE IVFLUSH (09:01)
[2025-04-09] MEDS: Albuterol Sulfate 90 MCG 8 GM INHALER 2 PUFF INHALE (09:03)
--- NOTE | 2025-04-09 13:02 | MHC.CM.PN ---
KRISHNAN notice 04/09/25 Patient lives with spouse. She receives services from [facility]. [facility] provides Home O2. She is discharged today to home with resumption of [facility]. Her spouse will provide transportation home.
== END 2025-04-09 10:33 | disposition home health service (06) ==
LOC: HO.ED 05:54 → HO.EDOVER 09:07 → HO.S3 13:10
PROVIDERS: Emergency Medicine; Physician Assistant; Admitting Provider Internal Medicine; Emergency Provider Emergency Medicine Emergency Medical Services; PCP Physician Assistant Surgical; Visit Provider Internal Medicine
DX: J98.4 Other disorders of lung (principal); J44.9 Chronic obstructive pulmonary disease, unspecified; G50.0 Trigeminal neuralgia; R09.02 Hypoxemia; R06.89 Other abnormalities of breathing; G47.33 Obstructive sleep apnea (adult) (pediatric); E78.5 Hyperlipidemia, unspecified; I10 Essential (primary) hypertension; R05.9 Cough, unspecified; R06.02 Shortness of breath; Z99.81 Dependence on supplemental oxygen; Z99.89 Dependence on other enabling machines and devices; Z79.899 Other long term (current) drug therapy; Z87.891 Personal history of nicotine dependence
CPT/HCPCS: 36415; 71045; 80048; 80053; 82803; 83735; 83880; 84484; 85025; 85027; 93005; 94640; 94660; 99221; 99285

== ENCOUNTER → 2025-04-08 02:04 | Outpatient (BNV) | payer BC, SELFPAY | PROVIDERS: Emergency Provider Emergency Medicine; PCP Physician Assistant Surgical; Visit Provider Radiology Diagnostic Radiology | DX: R06.02 Shortness of breath (principal); R05.9 Cough, unspecified | CPT/HCPCS: 71045 ==

== ENCOUNTER → 2025-04-08 02:04 | Outpatient (BNV) | payer BC, SELFPAY | PROVIDERS: Admitting Provider Internal Medicine; Emergency Provider Emergency Medicine Emergency Medical Services; PCP Physician Assistant Surgical; Visit Provider Internal Medicine Cardiovascular Disease | DX: R06.02 Shortness of breath (principal) | CPT/HCPCS: 93010 ==

== ENCOUNTER → 2025-04-08 09:02 | Outpatient (BNV) | payer BC, SELFPAY | PROVIDERS: Admitting Provider Internal Medicine; Emergency Provider Emergency Medicine Emergency Medical Services; PCP Physician Assistant Surgical; Visit Provider Internal Medicine | DX: J98.4 Other disorders of lung (principal) | CPT/HCPCS: 99223; 99239 ==

== ENCOUNTER 2025-04-11 20:04 | Inpatient (IN) | payer BC, SELFPAY ==
--- OUTSIDE RECORDS SUMMARY | 2025-04-06 11:45 | XMS_ITS | Encounter Summary ---
Author Organization [facility] Address [address] [place] [address] Phone Care Team Providers Care Electrocardiograph Repairer Name Role Phone Jn Cardoza MD Unavailable Denys Henriquez MD Unavailable Antione Segura PA-C Primary Care Provider [phone] Rhett Cortez MD Unavailable Reason for Visit * Hospital - Outpatient (Routine) - New Request Specialty Diagnoses / Procedures Referred By Dary smith Referred To Contact Radiology Diagnoses Parotid nodule 04/03/25 pt scheduled this date/time - [facility] needs to bring and take back home b/c he goes into work everyday 2:00. -Confirmed appt w/UL Dept - [email or web address] Procedures US SOFT TISSUES OF HEAD AND NECK (SALIVARY GLAND) Antione Segura PA-C [address] [place] [address] Phone: tel: fax: [email or web address] [address] [address] Phone: tel: fax: Referral ID Status Reason Start Date Expiration Date V isits Requested Visits Authorized [id number] New Request 04/06/2025 1 1 Encounter Details Date Type Department Care Team (Latest Contact Info) Description 04/06/2025 11:45 AM EDT - 04/06/2025 11:59 PM EDT Hospital Encounter [facility] [address] [place] [address] Antione Segura PA-C [address] [place] [address] [email or web address] Discharge Disposition: Home or Self Care Social History Tobacco Use Types Packs/Day Years [...] high school, GED, job training, learning the Montenegrin language, technical skills, or developing parenting skills)? [...] PM EDT documented as of this encounter Medications at Time of Discharge albuterol 90 mcg/actuation inhaler INHALE TWO PUFFS BY MOUTH EVERY 4 HOURS NEEDED FOR WHEEZING 8.5 g 5 ARIPiprazole (ABILIFY) 5 MG tablet Take 5 mg by mouth daily. 5 aspirin 81 MG EC tablet Take 1 tablet by mouth every morning. 4 atorvastatin (LIPITOR) 80 MG tabletIndications:Mix ed hyperlipidemia Take 1 tablet (80 mg total) by mouth every morning. 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 90 tablet 11 5 benzonatate (TESSALON) 100 MG capsuleIndications:Pe rsistent cough Take 1 capsule (100 mg total) by mouth 3 (three) times a day as needed for cough. 20 capsule 5 budesonide (PULMICORT) 0.5 mg/2 mL nebulizer solution Take 0.5 mg by nebulization daily. States does not have, per Dr. Henriquez/liliana morocho not on her medlist 5 dallqjyfbc-sptziegc-m ormoterol (BREZTRI AEROSPHERE) 160-9-4.8 mcg/actuation inhaler Inhale 2 puffs into the lungs 2 (two) times a day. 5 butalbital-acetaminop hen-caffeine (FIORICET, ESGIC) 50-325-40 mg per tablet TAKE ONE TABLET BY MOUTH EVERY DAY NEEDED FOR PAIN 8 tablet 5 calcium carbonate-vitamin D3 1,500 mg (600 mg elemental)-200 units Tab TAKE ONE TABLET BY MOUTH EVERY DAY 90 tablet 3 5 cetirizine (ZYRTEC) 10 MG tablet Take 1 tablet (10 mg total) by mouth as directed. Take 1 hour before your appointment where you will be receiving IV contrast dye for your imaging study 1 tablet 5 ciclopirox (PENLAC) 8 % solution Apply topically nightly at bedtime. Apply over nail and surrounding skin. Apply daily over previous coat. After seven (7) days, may remove with alcohol and continue cycle. 6.6 mL 1 5 diphenhydrAMINE (BENADRYL) 50 MG capsule Take 1 capsule (50 mg total) by mouth as directed. 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 5 ipratropium-albuteroL (DUONEB) 0.5-3 mg (2.5 mg base)/3 mL nebulizer solution Take 3 mL by nebulization every 4 (four) hours. 4 nebulizer accessories Kit 4 omeprazole (PRILOSEC) 20 MG capsule Take 20 mg by mouth daily. 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 60 tablet 11 5 OXYGEN-AIR DELIVERY SYSTEMS MISC 2 L by Intranasal route continuous. 1L WITH SLEEP 2L WITH REST/ NO ACTIVITY 3L WITH EXERTION. 5 prazosin (MINIPRESS) 2 MG capsule Take 1 capsule (2 mg total) by mouth nightly at bedtime. 30 capsule 11 5 predniSONE (DELTASONE) 50 MG tablet Take 1 tablet by mouth 13, 7 and 1 hour(s) before your appointment where you will be receiving IV contrast dye for your imaging study 3 tablet 5 roflumilast (DALIRESP) 500 mcg Tab Take 500 mcg by mouth daily. 5 valsartan (DIOVAN) 80 MG tablet Take 80 mg by mouth daily. hold is sbp less than 90 5 verapamiL (CALAN) 120 MG immediate release tablet Take 120 mg by mouth 2 (two) times a day. 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 28 tablet 04/11/20 25 documented as of this encounter Plan of Treatment Upcoming Encounters Date Type Department Care Team (Late st Contact Info) Description 04/12/2025 1:30 AM EDT Home Care Visit [facility] [address] [place] [phone] Rich Mariscal [address] [place] [address] [email or web address] 04/12/2025 3:00 PM EDT Home Care Visit [facility] [address] [place] [phone] Thao Kennedy [address] [place] [address] [email or web address] 04/16/2025 2:00 PM EST Office Visit [facility] [place] Internal Medicine [address] [place] [address] Antione Segura PA-C [address] [place] [address] [email or web address] 04/16/2025 3:00 PM EST Home Care Visit [facility] [address] [place] [phone] Eliseo Kennedyica Jose [address] [place] [address] [email or web address] 04/18/2025 1:30 AM EST Home Care Visit [facility] [address] [place] [phone] Shakira Hand RN [address] [place] [address] [email or web address] 04/19/2025 2:00 AM EST Home Care Visit [facility] [address] [place] [phone] Thao Kennedy L [address] [place] [address] [email or web address] 04/23/2025 2:00 AM EST Home Care Visit [facility] [address] [place] [address] Thao Kennedy L [address] [place] [address] [email or web address] 04/24/2025 9:40 AM EST Office Visit [facility] Internal Medicine [address] [place] [address] Antione Segura PA-C [address] [place] [address] [email or web address] 04/25/2025 1:30 AM EST Appointment [facility] [address] [place] [phone] Shakira Hand RN [address] [place] [address] [email or web address] 06/25/2025 9:30 AM EST Telemedicine [facility] Neurology [address] [place] [address] Jn Cardoza MD [address] [place] [address], 2nd [place] [address] [email or web address] documented as of this encounter Procedures Procedure Name Priority Date/Time Associated Diagnosis Comments US SOFT TISSUES OF HEAD AND NECK (SALIVARY GLAND) Routine 04/06/2025 12:20 PM EDT Parotid nodule documented in this encounter Results * US Soft Tissues of Head and Neck (Salivary Gland) (04/06/2025 12:20 PM EDT) [facility] IMG RECOMMENDATION COMMENT parotid lesion [facility] Anatomical Region Laterality Modality Neck, Head Ultrasound 04/06/2025 12:2 9 PM EDT Impressions 04/06/2025 12:32 PM EDT 1. No specific sonographic abnormality in the parotid region bilaterally. 2. No sonographic correlate for abnormality seen on prior head CT. Because of this discordance, follow-up neck CT with contrast is recommended for further characterization. RECOMMEND: CT neck between 0 months and 3 months for parotid lesion on prior CT. Follow-up recommendations were communicated and documented using a closed loop communication system. Narrative 04/06/2025 12:32 PM EDT US SOFT TISSUES OF HEAD AND NECK (SALIVARY GLAND) Referring clinician's provided indication for this examination in Epic: Parotid region mass TECHNIQUE: Ultrasound of the Salivary Gland. COMPARISON: Head CT dated 03/28/2025 FINDINGS: Targeted ultrasound was performed of the area of clinical concern in the parotid gland region bilaterally. Left parotid gland region: No focal sonographic abnormality. Patient experienced discomfort during the scan. The scan is limited. Right parotid gland region: No focal sonographic abnormality. Procedure Note Antonio Hernandez MD - 04/06/2025 US SOFT TISSUES OF HEAD AND NECK (SALIVARY GLAND) Referring clinician's provided indication for this examination in Epic:Parotid region mass TECHNIQUE: Ultrasound of the Salivary Gland. COMPARISON: Head CT dated 03/28/2025 FINDINGS: Targeted ultrasound was performed of the area of clinical concern in theparotid gland region bilaterally. Left parotid gland region: No focal sonographic abnormality. Patientexperienced discomfort during the scan. The scan is limited. Right parotid gland region: No focal sonographic abnormality. IMPRESSION: 1. No specific sonographic abnormality in the parotid regionbilaterally. 2. No sonographic correlate for abnormality seen on prior head CT.Because of this discordance, follow-up neck CT with contrast isrecommended for further characterization. RECOMMEND: CT neck between 0 months and 3 months for parotid lesion onprior CT. Follow-up recommendations were communicated and documented using a closedloop communication system. us Antione Segura PA-C IMG US HEAD/NECK NON THYROID Final Result documented in this encounter Visit Diagnoses Diagnosis Parotid nodule documented in this encounter Additional Health Concerns Assessment Noted Time PHQ-9 Depression Total Score: 23 025 3:04 PM EDT PHQ-2 Depression Total Score: 5 03/21/20 25 3:04 PM EDT documented as of this encounter Care Teams Electrocardiograph Repairer Relationship Specialty Start Date End Date Antione Segura PA-C [address] [place] [address] PCP - General Physician Home Care Liaison 10/12/24 Jn Cardoza MD 22 [facility], 2nd [place] [address] Neurology 02/03/24 Denys Henriquez MD [address] [place] [address] [place] [address] Pulmonary Disease 02/03/24 Rhett Cortez MD [address] [place] [address] [email or web address] Insurance Assigned Provider 01/20/25 documented as of this encounter Additional Source Comments The information contained in this document represents components of the legal health record. It is not the complete legal health record.[facility]
--- OUTSIDE RECORDS SUMMARY | 2025-04-09 15:00 | XMS_ITS | Encounter Summary ---
Author Organization [facility] Address [address] [place] [address] Phone Care Team Providers Care Demand Planner Name Role Phone Jn Cardoza MD Unavailable Denys Henriquez MD Unavailable Antione Segura PA-C Primary Care Provider Rhett Cortez MD Unavailable Reason for Visit * Auth/Cert (Routine) Specialty Diagnoses / Procedures Referred By Dary smith Referred To Contact Referral ID Status Reason Start Date Expiration Date Visits Re quested Visits Authorized [id number] 1 1 Encounter Details Date Type Department Care Team (Late st Contact Info) Description 04/09/2025 3:00 PM EDT Home [facility] Visit [facility] [address] [place] [phone] Thao Kennedy [address] [place] [address] [email or web address] [facility] Social History Tobacco Use Types [...] high school, GED, job training, learning the [place] language, technical skills, or developing parenting skills)? [...] 1:30 AM EDT [facility] [address] [place] [phone] Rich Mariscal [address] [place] [address] 04/12/2025 3:00 PM EDT Home Care Visit [facility] [address] [place] [address] Thao Kennedy L [address] [place] [address] 04/16/2025 2:00 PM EST Office Visit [facility] [place] [facility] [address] [place] [address] Antione Segura PA-C [address] [place] [address] [email or web address] 04/16/2025 3:00 PM EST Home Care Visit [facility] [address] [place] [phone] Kennedy, Thao L [address] [place] [address] 04/18/2025 1:30 AM EST Home Care Visit [facility] [address] [place] [phone] Shakira Hand RN [address] [place] [address] 04/19/2025 2:00 AM EST Home Care Visit [facility] [address] [place] [phone] Kennedy, Thao L [address] [place] [address] 04/23/2025 2:00 AM EST Home Care Visit [facility] [address] [place] [address] Kennedy, Thao L [address] [place] [address] 04/24/2025 9:40 AM EST Office Visit [facility] [address] [place] [address] Antione Segura PA-C [address] [place] [address] 04/25/2025 1:30 AM EST Appointment [facility] [address] [place] [address] Shakira Hand RN [address] [place] [address] 06/25/2025 9:30 AM EST Telemedicine [facility] Neurology [address] [place] [address] Jn Cardoza MD [address] [address] documented as of this encounter Visit Diagnoses Not on filedocumented in this encounter Additional Health Concerns Assessment Noted Time PHQ-9 Depression Total Score: 23 025 3:04 PM EDT PHQ-2 Depression Total Score: 5 03/21/20 25 3:04 PM EDT documented as of this encounter Home Health Visit - Care Plan Visit Details Visit Type -[facility] VISIT Discipline -Home Health Aide Problems [...] needs will be met. Scheduled HH - Assist with/complete safe bathing Description: Shower with chair or bench Problem:HH - Home Health Aide Care Plan Goal:HH - Personal care needs will be met. Scheduled documented in this encounter Care Teams Demand Planner Relationship Specialty Start Date End Date Antione Segura PA-C [address] [place] [phone] [email or web address] PCP - General Physician [facility] 10/12/24 Jn Cardoza MD [address] [place] [address], [address] [place] [address] Neurology 02/03/24 Denys Henriquez MD [address] [place] [address] [place] [address] Pulmonary Disease 02/03/24 Rhett Cortez MD [address] [place] [address] [email or web address] Insurance Assigned Provider 01/20/25 documented as of this encounter Additional Source Comments The information contained in this document represents components of the legal health record. It is not the complete legal health record.[facility]
--- NOTE | ~2025-04-11 | XR_ITS ---
CLINICAL HISTORY: sob, copd 1 view chest x-ray Comparison: CR - XR CHEST 1V - 04/08/25 02:16 EDT Findings: Heart size is normal. No consolidation, significant pleural effusion or pneumothorax. No acute fracture. IMPRESSION: 1. No acute findings. This document has been electronically signed by: Kayley Layton MD on 04/11/2025 22:00:58
[2025-04-11 20:13] VITALS: BP 190/100; PULSE 20; O2SAT 97
[2025-04-11 20:25] VITALS: PULSE 100; RESP 22; TEMP 36.9; O2SAT 90; BMI 33.7
--- OUTSIDE RECORDS SUMMARY | 2025-04-11 20:56 | XMS_ITS | Clinical Summary ---
Author Organization [facility] Address [address] [id number] Care Team Providers Care Veneer Jointer Name Role Phone Antione Segura Primary Care Provider [phone] Allergies Active Allergy Reactions Criticality Noted Date [...] Type Department Care Team Description 01/29/2025 Telephone [facility] [address] [place] [phone] Director Funeral: Federico Hill Telephone Intake, Staff PAC Order Request; Dr. Bautista 01/25/2025 Orders Only [facility] [address] [place] [phone] Director Funeral: Remy Santos MD 01/25/2025 Telephone [facility] Pulmonary Function Lab [address] [place] [address] Remy Bautista MD Whalen/med was not sent to pharmacy 01/24/2025 11:00 AM EDT Office Visit [facility] [address] [place] [address] Director Funeral: Remy Santos MD Stage 2 moderate COPD [...] complete this topic Procedures * Due to [place] state law, this organization might not be sharing negative HIV tests. Procedure Name Priority Date/Time Associated Diagnosis Comments LAB - SCANNED 01/10/[address] CHEST, OUTSI DE RESULT 11/30/2024 from Last 3 Months or Most Recently Relevant to Health Maintenance Results * Due to [place] state law, this organization might not be sharing negative HIV tests. * LAB - SCANNED (01/10/2025) us Onbase Scan [facility] LAB HISTORICAL RESULTS Final Result * CT Chest, Outside Result (11/30/2024) Anatomical Region Laterality Modality Other 11/30/2024 us Onbase Scan [facility] AMB EXTERNAL RESULT PROCEDURE S Final Result from Last 3 Months or Most Recently Relevant to Health Maintenance Insurance [facility] HMO/POS Care Teams Veneer Jointer Relationship Specialty Start Date End Date Antione Segura PA [address] [place] [address] PCP - General Emergency Medicine 01/10/25
--- OUTSIDE RECORDS SUMMARY | 2025-04-11 20:56 | XMS_ITS | Encounter Summary ---
Author Organization [facility] Address [address] [address] Phone Care Team Providers Care Company Accountant Name Role Phone Jn Cardoza MD Unavailable Denys Henriquez MD Unavailable Antione Segura PA-C Primary Care Provider Rhett Cortez MD Unavailable Encounter Details Date Type Department Care Team (Late st Contact Info) Description 03/20/2025 Home Health Resumption of Care Planning [facility] [address] [place] [phone] Koki Simons RN [address] [place] [address] [email or web address] Social History Tobacco Use Types Packs/Day Years [...] high school, GED, job training, learning the Maltese language, technical skills, or developing parenting skills)? [...] Visit [facility] [address] [place] [phone] Rich Mariscal [address] [place] [address] [email or web address] 04/12/2025 3:00 PM EDT Home Care Visit [facility] [address] [place] [phone] Eliseo Kennedyica L [address] [place] [address] [email or web address] 04/16/2025 2:00 PM EST Office Visit [facility] [place] [facility] [address] [place] [address] Antione Segura PA-C [address] [place] [address] [email or web address] 04/16/2025 3:00 PM EST Home Care Visit [facility] [address] [place] [phone] Kennedy, Thao L [address] [place] [address] [email or web address] 04/18/2025 1:30 AM EST Home Care Visit [facility] [address] [place] [phone] Shakira Hand, HUA [address] [place] [address] 04/19/2025 2:00 AM EST Home Care Visit [facility] [address] [place] [address] KennedyThao espinosa L [address] [place] [address] 04/23/2025 2:00 AM EST Home Care Visit [facility] [address] [place] [phone] Kennedy, Thao L [address] [place] [address] 04/24/2025 9:40 AM EST Office Visit [facility] [address] [place] [address] Antione Segura PA-C [address] [place] [address] 04/25/2025 1:30 AM EST Appointment [facility] [address] [place] [address] Shakira Hand, HUA [address] [place] [address] 06/25/2025 9:30 AM EST Telemedicine [facility] Neurology [address] [place] [address] Jn Cardoza MD 22 [facility], [address]nd [place] [address] documented as of this encounter Visit Diagnoses Not on filedocumented in this encounter Additional Health Concerns Assessment Noted Time PHQ-9 Depression Total Score: 15 025 9:44 AM EDT PHQ-2 Depression Total Score: 4 02/01/20 25 9:44 AM EDT documented as of this encounter Care Teams Company Accountant Relationship Specialty Start Date End Date Antione Segura PA-C [address] [place] [address] [email or web address] PCP - General Physician Financial Report Service Sales Agent 10/12/24 Jn Cardoza MD 22 [facility], [address] [place] [address] Neurology 02/03/24 Denys Henriquez MD [address] [place] [address] [place] [address] Pulmonary Disease 02/03/24 Rhett Cortez MD [address] [place] [address] [email or web address] Insurance Assigned Provider 01/20/25 documented as of this encounter Additional Source Comments The information contained in this document represents components of the legal health record. It is not the complete legal health record.[facility]
--- OUTSIDE RECORDS SUMMARY | 2025-04-11 20:56 | XMS_ITS | Clinical Summary ---
Author Organization [facility] Address [address] [place] [phone] Phone Care Team Providers Care Webmethods Architect Name Role Phone Jn Cardoza MD Unavailable Denys Henriquez MD Unavailable Antione Segura PA-C Primary Care Provider [phone] Rhett Cortez MD Unavailable Allergies Active Allergy [...] day. hold if sbp less than 120 Active DULoxetine (CYMBALTA) 60 MG capsuleIndications :Anxiety take one capsule by mouth twice a day 60 capsule 11 Active prazosin (MINIPRESS) 2 MG capsule Take 1 capsule (2 mg total) by mouth nightly at bedtime. 30 capsule 11 Active calcium carbonate-vitamin D3 1,500 mg (600 mg elemental)-200 units Tab TAKE ONE TABLET BY MOUTH EVERY DAY 90 tablet 3 Active OXYGEN-AIR DELIVERY SYSTEMS MISC 2 L by Intranasal route continuous. 1L WITH SLEEP 2L WITH REST/ NO ACTIVITY 3L WITH EXERTION. Active baclofen (LIORESAL) 20 MG tabletIndications: Trigeminal neuralgia of left side of face,Atypical facial pain Take 1 tablet (20 mg total) by mouth 3 (three) times a day. 90 tablet 11 Active roflumilast (DALIRESP) 500 mcg Tab Take 500 mcg by mouth daily. Active valsartan (DIOVAN) 80 MG tablet Take 80 mg by mouth daily. hold is sbp less than 90 Active ciclopirox (PENLAC) 8 % solution Apply topically nightly at bedtime. Apply over nail and surrounding skin. Apply daily over previous coat. After seven (7) days, may remove with alcohol and continue cycle. 6.6 mL 1 Active diphenhydrAMINE (BENADRYL) 50 MG capsule Take 1 capsule (50 mg total) by mouth as directed. Take 1 hour before your appointment where you will be receiving IV contrast dye for your imaging study 1 capsule Active Additional Information Patient not taking.Reported on 04/11/2025 hyoscyamine (ANASPAZ,LEVSIN) 0.125 mg tabletIndications: Irritable bowel syndrome with both constipation and diarrhea TAKE 1-2 TABLETS BY MOUTH EVERY 4 - 6 HOURS NEEDED FOR ABDOMINAL CRAMPS AND BLOATING PRN 60 tablet 2 Active ARIPiprazole (ABILIFY) 5 MG tablet Take 5 mg by mouth daily. Active budesonide (PULMICORT) 0.5 mg/2 mL nebulizer solution Take 0.5 mg by nebulization daily. States does not have, per Dr. Henriquez/pulelicia onology not on her medlist Active omeprazole [...] HOURS NEEDED FOR WHEEZING 8.5 g Active atorvastatin (LIPITOR) 80 MG tabletIndications: Mixed hyperlipidemia Take 1 tablet (80 mg total) by mouth every morning. 30 tablet 2 Active predniSONE (DELTASONE) 50 MG tablet Take 1 tablet by mouth 13, 7 and 1 hour(s) before your appointment where you will be receiving IV contrast dye for your imaging study 3 tablet Active Additional Information Patient not taking.Reported on 04/11/2025 cetirizine (ZYRTEC) 10 MG tablet Take 1 tablet (10 mg total) by mouth as directed. 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 Active amoxicillin (AMOXIL) 500 MG capsule Take 500 mg by mouth 3 (three) times a day. Active oxyCODONE 5 MG immediate release tabletIndications: Acute right-sided low back pain without sciatica Take 1 tablet (5 mg total) by mouth every 6 (six) hours as needed for pain (specific location in comments). 28 tablet Active predniSONE (DELTASONE) 10 MG tablet Take 10 mg by mouth daily. TAPER: [id number] 10MG X4DAYS 5MG X4DAYS 025 2024 Discontinued(D iscontinued by another clinician) oxyCODONE 5 MG immediate release tabletIndications: Sacroiliitis, not elsewhere classified Take 1 tablet (5 mg total) by mouth every 12 (twelve) hours as needed for pain (specific location in comments). 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 28 tablet 025 2024 Discontinued(R eorder) predniSONE (DELTASONE) 10 MG tablet Take 10 mg by mouth daily. 40MG EVERY 3 DAYS 30MG EVERY 3 DAYS 20MG EVERY 3 DAYS 10MG EVERY 3 DAYS 2024 Discontinued predniSONE (DELTASONE) 5 MG tablet Take 5 mg by mouth daily. EVERY OTHER DAY 2024 Discontinued(N o longer taking) oxyCODONE 5 MG immediate release tabletIndications: Acute right-sided low back pain without sciatica Take 1 tablet (5 mg total) by mouth every 6 (six) hours as needed for pain (specific location in comments). 28 tablet 2024 Discontinued(R eorder) Active Problems Problem Noted Date Diagnosed Date [...] A-fib and have her follow-up with the immigration paralegal Acute on chronic hypoxic respiratory failure Assessment & Plan (03/28/2025 4:20 PM EDT): Patient was recently admitted to [facility] from 03/13-03/19 for acute on chronic hypoic [...] L. She has to follow-up with her dough raiser and to schedule another sleep study to be completed. Assessment & Plan (12/28/2024 6:54 PM EDT): Respiratory status improved on course of antibiotics and prednisone. Continue deep breathing and monitor for any worsened respiratory status. Monitor home spO2. Continue benzonatate prn. Continue O2 therapy as prescribed. Referral placed to [facility] Pulmonology. Trigeminal neuralgia 12/28/2024 Assessment & Plan [...] last year and this was completed at [facility] through her immigration paralegal -Her blood pressures have been not well-controlled [...] daily. She follows with Dr. Thurman at [facility]. Patient follows regularly with him. Her [...] Does have outpatient stress test scheduled with [facility] Cardiology. Discussed that results would indicate future management and whether that may include cardiac catheterization. I do not see record of this within her discharge summary from [facility] Assessment & Plan (12/22/2023 9:33 AM EDT): [...] should be seen and followed by a jet dyeing machine tender which she does already have appointment scheduled [...] how this is not appropriate given prescribed Quincy for pain and risk of COOKY PACKER depression. She is aware of these risks and agrees to continuing medication as prescribed. She understands that she can contact the office should she be interested in discussion of medication regimen. Assessment & Plan (11/01/2023 10:20 AM EDT): PHQ9 Flowsheet Row Office Visit from 10/28/2023 in [facility] Primary [facility] PHQ-9 Total Score 24 [...] study and speech evaluation when inpatient at [place]. Discussed referral to gastroenterology discussed potential of [...] does have an upcoming appointment with her dough raiser next week. Of note she also saw another dough raiser Remy Bautista out at [facility] pulmonary and has a follow-up with them [...] follows closely with Dr. Henriquez out of [facility]. She is on Daliresp, DuoNebs and [...] a scheduled appointment on 12/18 with her dough raiser. She is hoping to get this moved [...] follows closely with Dr. Henriquez out of [facility]. She is on Daliresp, DuoNebs and [...] Continue prednisone as prescribed upon discharge from [facility]. Discussed concern for coronary requirement of nebulizer treatments and albuterol rescue inhaler. We also reviewed the importance of vaping cessation, she remains precontemplative. She does have follow-up appointment scheduled with Dr. Henriquez and has resumed VNA services. Assessment & Plan (11/29/2023 5:28 PM EDT): Recent admission for COPD exacerbation with acute hypoxemic respiratory failure. Current dough raiser is Dr. Henriquez at [facility]. She is interested in establishing care with [facility] pulmonology some of her specialists are within the [facility] system for better continuity of care. She understands that she should continue with Dr. Sevilla until she is able to establish care with [facility] Hypoxemia requiring supplemental oxygen 03/11/2023 10/12/2024 Assessment [...] EST): Continue follow-up with Dr. 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 We discussed concern for COOKY PACKER depression and need to minimize use especially [...] 3 times daily and she was on Quincy however during her last hospital stay this [...] Encounters Date Type Department Care Team Description 04/11/2025 Refill [facility] Internal Medicine [address] [place] [address] Elida Lindquist RN TCM Visit 04/10/2025 Telephone [facility] [address] [place] [address] Antione Segura PA-C TCM Visit (Needs appt ) 04/10/2025 Telephone [facility] Internal Medicine [address] [place] [address] Antione Segura PA-C Forms & Paperwork 04/09/2025 3:00 PM EDT Home Care Visit [facility] [address] [place] [phone] Thao Kennedy MANAGER INTENSIVE CARE HOME VISIT 04/09/2025 Telephone [facility] [address], [place] [phone] Janay Naidu Care Coordination 04/09/2025 Orders Only [facility] Internal Medicine [address] [place] [address] Provider, MD Omar 04/07/2025 Refill [facility] [address] [place] [address] Antione Segura PA-C Medication Refill 04/06/2025 11:45 AM EDT - 04/06/2025 11:59 PM EDT Hospital Encounter [facility], [facility] [address] [place] [address] Antione Segura PA-C Discharge Disposition: Home or Self Care 04/06/2025 Orders Only [facility] Internal Medicine [address] [place] [address] Antione Segura PA-C Abnormal finding on imaging (Primary Dx); Allergic reaction to contrast material, subsequent encounter 04/05/2025 3:00 PM EDT Home Care Visit [facility] [address] [place] [address] KennedyEliseoThao L MANAGER INTENSIVE CARE HOME VISIT 04/05/2025 2:00 AM EDT Home Care Visit [facility] [address] [place] [address] Rich Mariscal LPN HOME VISIT 04/05/2025 Episode Documentation Update [facility] [address] [place] [address] Margy Rubalcava 04/04/2025 Episode Documentation Update [facility] [address] [place] [address] Margy Rubalcava 04/03/2025 Episode Documentation Update [facility] [address] [place] [phone] Margy Rubalcava 04/02/2025 2:00 PM EDT Home Care Visit [facility] [address] [place] [phone] Kennedy, Thao L MANAGER INTENSIVE CARE HOME VISIT 04/02/2025 Episode Documentation Update [facility] [address] [place] [phone] Margy Rubalcava 03/30/2025 Episode Documentation Update [facility] [address], [place] [phone] Margy Rubalcava 03/29/2025 3:00 PM EDT Home Care Visit [facility] [address], [place] [phone] Thao Kennedy MANAGER INTENSIVE CARE HOME VISIT 03/29/2025 11:30 AM EDT Home Care Visit [facility] [address], [place] [phone] Shakira Hand RN SN HOME VISIT 03/29/[address] [address] Janay Naidu Care Coordination 03/29/2025 [facility] [address], [place] [phone] Margy Rubalcava 03/28/2025 2:32 PM EDT - 03/28/2025 11:59 PM EDT Hospital Encounter [facility], [facility] [address] [place] [address] Antione Segura PA-C Discharge Disposition: Home or Self Care 03/28/2025 9:40 AM EDT Office Visit [facility] Internal [facility] [address] [place] [address] Antione Segura PA-C Acute right-sided low back pain without sciatica (Primary Dx); Depression, unspecified depression type; Dizziness and giddiness; Acute on chronic hypoxic respiratory failure 03/28/[address] [address] Janay Naidu Care Coordination 03/28/2025 Telephone [facility] [address] [place] [address] Antione Segura PA-C Results 03/28/2025 Procedure Pass [facility], Ct Scan - [facility] [address] [place] [address] 03/28/2025 Episode Documentation [facility] [address] [place] [phone] Margy Rubalcava 03/27/2025 [facility] [address] [place] [phone] Thao Kennedy Jose MANAGER INTENSIVE CARE HOME VISIT 03/21/2025 1:30 PM EDT [facility] [address] [place] [address] Shakira Hand, HUA SN OASIS RESUMPTION OF CARE (VERONIKA) 03/21/2025 Documentation [facility] [address] [place], [place] [phone] Antione Segura PA-Bebe 03/20/2025 Home Health Resumption of Care Planning [facility] [address] [place] [address] Koki Simons RN 03/16/2025 4:30 AM EDT [facility] [address] [place] [address] Shakira Hand RN SN OASIS TRANSFER 03/15/2025 Refill [facility] [address] [place] [address], [place] [phone] Antione Segura, PA-Bebe Medication Refill 03/13/2025 Orders Only [facility] [address] [place] [address], [place] [phone] Provider, MD Omar 03/08/2025 1:00 AM EDT [facility] [address] [place] [address] Rich Mariscal LPN HOME VISIT 03/08/2025 Refill [facility] [address] [place] [address] Antione Segura PA-C Medication Refill 03/08/2025 Refill [facility] [address] [place] [address] Pete Hicks PA-C Medication Refill 03/08/2025 [facility] [address] [place] [address] Antione Segura PA-C Medication Refill 03/06/2025 Episode Documentation Update [facility] [address] [place] [phone] Bratic, Stanislavka 03/05/2025 Episode Documentation Update [facility] [address] [place] [phone] Bratic, Stanislavka 03/04/2025 Episode Documentation Update [facility] [address] [place] [phone] Bratic, Stanislavka 03/02/2025 Episode Documentation Update [facility] [address] [place] [phone] Bratic, Stanislavka 03/02/2025 Telephone [facility] [address] [place] [address] Antione Segura PA-C [facility] referral request 03/01/2025 11:00 AM EDT Home Care Visit [facility] [address] [place] [phone] Rich Mariscal LPN HOME VISIT 03/01/2025 Refill [facility] [address] [place] [address] Vania Matamoros MA 02/27/2025 [facility] [address] [place] [address] Antione Segura PA-C Medication Refill 02/26/2025 Episode Documentation Update [facility] [address] [place] [phone] Margy Rubalcava 02/23/2025 11:30 AM EDT Home Care Visit [facility] [address] [place] [address] Shakira Hand RN SN OASIS RECERTIFICATION/FUP 02/23/2025 Plan of Care Documentation [facility] [address] [place] [address] 02/21/2025 Episode Documentation Update [facility] [address] [place] [address] Margy Rubalcava 02/20/2025 Orders Only [facility] [address] [place] [address] ProviderOmar MD 02/19/2025 10:30 AM EDT Home Care Visit [facility] [address] [place] [address] Shakira Hand RN SN PRN HOME VISIT 02/19/2025 9:00 AM EDT Home Care Visit [facility] [address] [place] [address] Krysta Charles MANAGER INTENSIVE CARE HOME VISIT 02/16/2025 Home Care Visit [facility] [address] [place] [address] Laquita Mchugh, PT TELEPHONE ENCOUNTER 02/16/2025 Telephone [facility] [address] [place] [address] Antione Segura PA-C Referral ([facility] Pulmonology) 02/16/2025 Home Care Visit [facility] [address] [place] [address] Krysta Charles HOME VISIT 02/15/2025 9:00 AM EDT Office Visit [facility] [address] [place] [address] Antione Segura PA-C Pulmonary emphysema, unspecified emphysema type (Primary Dx) 02/15/2025 Home Care Visit [facility] [address] [place] [address] Laquita Mchugh, PT TELEPHONE ENCOUNTER 02/14/2025 1:30 PM EDT Home Care Visit [facility] [address], [place] [phone] Shakira Hand, HUA SN HOME VISIT 02/14/2025 Home Care Visit [facility] [address] [place] [address] Laquita Mchugh, PT TELEPHONE ENCOUNTER 02/14/2025 Home Care Visit [facility] [address] [place] [address] Laquita Mchugh, PT TELEPHONE ENCOUNTER 02/14/2025 Orders Only [facility] [address] [place] [address] ProviderOmar MD 02/14/2025 Documentation [facility] [address] [place] [address] Antione Segura PA-C 02/14/2025 Home Care Visit [facility] [address] [place] [address] Krysta Charles MANAGER INTENSIVE CARE HOME VISIT 02/13/[address] [phone] Antione Segura PA-C Appointment (Tcm+discharged 02/09/25 ) 02/12/2025 12:30 PM EDT Home Care Visit [facility] [address] [place] [phone] Shakira Hand, RN SN OASIS RESUMPTION OF CARE (VERONIKA) 02/11/2025 Home Care Visit [facility] [address] [place] [phone] Maritza Calix, RN CASE COMMUNICATION 02/09/2025 Home Health Resumption of Care Planning [facility] [address] [place] [phone] Koki Simons RN 02/08/2025 1:00 AM EDT Home Care Visit [facility] [address], [place] [phone] Shakira Hand, HUA SN OASIS TRANSFER 02/05/2025 Home Care Visit [facility] [address] [place] [address] Krysta Charles CASE COMMUNICATION 02/01/2025 3:30 PM EDT Home Care Visit [facility] [address] [place] [address] Yane Lanza, PT PT HOME VISIT 02/01/2025 4:00 AM EDT Home Care Visit [facility] [address] [place] [address] Krysta Charles MANAGER INTENSIVE CARE HOME VISIT 01/31/2025 1:30 PM EDT Home Care Visit [facility] [address] [place] [address] Shakira Hand, HUA SN HOME VISIT 01/29/2025 3:30 PM EDT Home Care Visit [facility] [address] [place] [address] Yane Lanza, PT PT HOME VISIT 01/29/2025 8:15 AM EDT Home Care Visit [facility] [address] [place] [address] Krysta Charles MANAGER INTENSIVE CARE HOME VISIT 01/29/2025 Refill [facility] Internal Medicine [address] [place] [address] Antione Segura PA-C Medication Refill 01/29/2025 Telephone [facility] [address] [place] [address] Antione Segura PA-C Request For Order(s) 01/26/2025 Home Care Visit [facility] [address] [place] [phone] Karlene Berumen, RN TELEPHONE ENCOUNTER 01/25/2025 2:30 PM EDT Home Care Visit [facility] [address] [place] [phone] Yane Lanza, PT PT EVALUATION 01/25/2025 4:00 AM EDT Home Care Visit [facility] [address] [place] [phone] Krysta Charles HOME VISIT 01/25/2025 1:00 AM EDT Home Care Visit [facility] [address] [place] [phone] Karlene Berumen, RN SN HOME VISIT 01/24/2025 Telephone [facility] [address] [place] [address] Antione Segura PA-C PFT 01/24/2025 Telephone [facility] [address] [place] [address] Eliana Prabhakar, ANGELINA Breast Cancer Screening 01/23/2025 9:00 AM EDT Home Care Visit [facility] [address] [place] [phone] Rich Mariscal LPN HOME VISIT 01/23/2025 4:30 AM EDT Home Care Visit [facility] [address] [place] [phone] Krysta Charles HOME VISIT 01/22/2025 Home Care Visit [facility] [address] [place] [phone] Yane Lanza, PT TELEPHONE ENCOUNTER 01/22/2025 Refill [facility] [address] [place] [address] Antione Segura PA-C Medication Refill 01/18/2025 11:00 AM EDT Home Care Visit [facility] [address] [place] [phone] Shakira Hand, HUA SN HOME VISIT 01/18/2025 9:15 AM EDT Home Care Visit [facility] [address] [place] [phone] Krysta Charles MANAGER INTENSIVE CARE HOME VISIT 01/18/2025 Telephone [facility] [address] [place] [address] Antione Segura PA-C Medication Question (Gabapentin) 01/18/2025 Episode Documentation Update [facility] [address] [place] [phone] Mayra Burton 01/17/2025 2:30 PM EDT Home Care Visit [facility] [address] [place] [phone] Krysta Charles MANAGER INTENSIVE CARE HOME VISIT 01/17/2025 Telephone [facility] [address] [place] [address] Elida Lindquist, HUA VNA Orders 01/15/2025 Episode Documentation Update [facility] [address] [place] [phone] Mayra Burton 01/14/2025 Home Care Visit [facility] [address] [place] [phone] Raya Howard, PT TELEPHONE ENCOUNTER 01/12/2025 Refill [facility] [address] [place] [address] Antione Segura PA-C Medication Refill 01/12/2025 Telephone [facility] [address] [place] [address] Antione Segura PA-C VNA Orders 01/11/2025 10:00 AM EDT Home Care Visit [facility] [address] [place] [phone] Shakira Hand, HUA SN HOME VISIT 01/11/2025 Episode Documentation Update [facility] [address] [place] [phone] Mayra Burton 01/10/2025 12:30 PM EDT [facility] [address] [place] [phone] Shakira Hand, HUA SN OASIS RESUMPTION OF CARE (VERONIKA) 01/10/2025 Telephone [facility] [address] [place] [address] Antione Segura PA-C Referral (Pulmonology referral update to urgent) 01/09/2025 3:00 PM EDT Home Care Visit [facility] [address] [place] [phone] Shakira Hand, HUA SN OASIS TRANSFER 01/09/2025 Home Health Resumption of Care Planning [facility] [address] [place] [phone] Koki Simons RN from Last 3 Months [...] high school, GED, job training, learning the [place] language, technical skills, or developing parenting skills)? [...] Care Visit [facility] [address] [place] [phone] Rich Mariscal [address] [place] [address] [email or web address] 04/12/2025 3:00 PM EDT Home Care Visit [facility] [address] [place] [phone] Kennedy, Thao L [address] [place] [phone] [email or web address] 04/16/2025 2:00 PM EST Office Visit [facility] [place] Internal Medicine [address] [place] [address] Antione Segura PA-C [address] [place] [address] [email or web address] 04/16/2025 3:00 PM EST Home Care Visit [facility] [address] [place] [phone] Kennedy, Thao L [address] [place] [address] [email or web address] 04/18/2025 1:30 AM EST Home Care Visit [facility] [address] [place] [phone] Shakira Hand, HUA [address] [place] [address] [email or web address] 04/19/2025 2:00 AM EST Home Care Visit [facility] [address] [place] [phone] Kennedy, Thao L [address] [place] [address] 04/23/2025 2:00 AM EST Home Care Visit [facility] [address] [place] [phone] Kennedy Thao Jose [address] [place] [address] 04/24/2025 9:40 AM EST Office Visit [facility] Internal Medicine [address] [place] [address] Antione Segura PA-C [address] [place] [address] 04/25/2025 1:30 AM EST Appointment [facility] [address] [place] [phone] Shakira Hand RN [address] [place] [address] 06/25/2025 9:30 AM EST Telemedicine [facility] Neurology [address] [place] [address] Jn Cardoza MD 22 [facility], 2nd [place] [address] [email or web address] Health Maintenance Due Date Last Done Comments [...] history exists DEPRESSION SCREENING 03/21/2026 03/21/2025, 03/21/20 25 SMOKING Hx and SMOKELESS TOBACCO SCREENING 03/28/2026 [...] Name Priority Date/Time Associated Diagnosis Comments OUTSIDE LAB Routine 04/08/2025 1:09 PM EDT OUTSIDE IMAGING Routine 04/08/2025 7:50 AM EDT US SOFT TISSUES OF HEAD AND [...] Relevant to Health Maintenance Results * Outside Lab (04/08/2025 1:09 PM EDT) Historical Provider LAB BLOOD ORDERABLES Mariya l Result * Outside Imaging Report Only (04/08/2025 7:50 AM EDT) us Historical Provider MD DAWKINS XR CHEST Final Res ult * US Soft Tissues of Head and Neck (Salivary Gland) (04/06/2025 12:20 PM EDT) MGB IMG RECOMMENDATION COMMENT parotid lesion [facility] Anatomical Region Laterality Modality Neck, Head [...] clinician's provided indication for this examination in [facility]: Parotid region mass TECHNIQUE: Ultrasound of the [...] clinician's provided indication for this examination in [facility]:Parotid region mass TECHNIQUE: Ultrasound of the Salivary [...] IMG US HEAD/NECK NON THYROID Final Result * CT HEAD WITHOUT CONTRAST (03/28/2025 2:46 PM EDT) MGB IMG SALES SUPPORT ASSISTANT COMMENT see results [facility] Anatomical Region Laterality Modality Head Computed Tomogra phy 03/28/2025 2:54 PM EDT Impressions 03/28/2025 3:15 PM EDT 1. No acute intracranial findings. No evidence of acute infarct or hemorrhage. 2. Left parotid gland nodular density. Follow-up parotid ultrasound or neck CT with contrast recommended. A clinically significant result was initiated on 03/28/2025 3:15 PM, Message ID [id number]. Narrative 03/28/2025 3:[address] HEAD WITHOUT CONTRAST Referring clinician's provided indication for this examination in Epic: * Dizziness, persistent/recurrent, cardiac or vascular cause [...] clinician's provided indication for this examination in [facility]: *Dizziness, persistent/recurrent, cardiac or vascular cause suspected [...] was initiated on 03/28/2025 3:15 PM,Message ID [id number]. Antione DAWIKNS CT HEAD/NECK Final Result * Outside XR??Chest Report Only (03/13/2025 8:23 AM EDT) Historical Provider MD DAWKINS XR CHEST Final Res ult * Outside Potassium Level (03/06/2025) Only the most recent of2 resultswithin the time period is included. Potassium level - External 3.8 3.4 - 5.0 mmol/L Result [facility] Provider LAB BLOOD ORDERABLES Mariya l Result * Outside Serum Creatinine Level (03/06/2025) Only the most recent of2 resultswithin the time period is included. Creatinine, serum - External 0.81 0.8 - 1.3 mg/dL Result [facility] LAB BLOOD ORDERABLES Mariya l Result * Outside ALT Level (03/06/2025) Only the most recent of2 resultswithin the time period is included. ALT - External 19 5 - 30 U/L Result [facility] LAB BLOOD ORDERABLES Mariya l Result * Outside Imaging Report Only (02/17/2025 11:14 AM EDT) Result [facility] Provider IMG XR CHEST Final Res ult * Outside US Breast Report Only (02/14/2025 4:39 PM EDT) Result [facility] Provider IMG US BREAST Final Res ult * HM MAMMOGRAPHY FOR RESULT ENTRY ONLY (02/14/2025 2:39 PM EDT) Result [facility] HEALTH MAINTENANCE Final Result * HM LDCT PROCEDURE FOR RESULT ENTRY ONLY (12/21/2024) Pathologist [facility] LDCT - External CTA chest, juanito pulm nodules Result [facility] Provider HEALTH MAINTENANCE Final Result * (ABNORMAL) Lipid panel (08/22/2021 8:13 AM EST) HDL 54 mg/dL [facility] Comment: Interpretation <40 mg/dL: Low HDL cholesterol (major risk factor for CHD) Greater than or equal to 60 mg/dL: High HDL cholesterol ( negative risk factor for CHD) HDL - cholesterol is affected by a number of factors, e.g. smoking, excerise, hormones, sex and age. CHOLESTEROL 237 0 - 240 mg/dL [facility] TRIGLYCERIDES 201(H) 30 - 160 mg/dL [facility] LDL 143(H) 50 - 129 mg/dL [facility] Comment: LDL levels in terms of risk for coronary heart disease: <100 mg/dL: Optimal 100-129 mg/dL: Near or above optimal 130-159 mg/dL: Borderline high 160-189 mg/dL: High >190 mg/dL: Very High CARDIAC RISK RATIO 4.4 3.3 - 4.4 C [facility] Blood 08/22/2021 8:13 AM EST 08/22/2021 8:17 AM EST us Jennifer Duke NP LAB BLOOD ORDERABLES Final Resu lt [address] [address] * Pap Smear (02/22/2020 12:00 AM EDT) 02/22/2020 02/23/2020 8:2 1 AM EDT Narrative SEE NARRATIVE - 02/27/2020 11:20 AM EDT [address] [address] Load Checker: Perla Luis MD DESTINATION SPECIALIST Cytology Report FINAL DIAGNOSIS A. PAP SMEAR [...] 52, 56, 58, 59, 66, 68) by [employer] HR-HPV analysis. Clinical correlation is advised. This HPV test was performed at , [address] [place] [address]. This test has been FDA approved for [facility] cervical cytology specimens. The accuracy and precision of this test for all other specimen sources has been verified in the Cytopathology Laboratory of the and has not been cleared or approved by the U.S. Food and Drug Administration. Clinical correlation is advised. CLINICAL HISTORY Date of Last Menstrual Period: 2009 Menstrual History: Post Menopausal Other Clinical Conditions: Screening Pap SPECIMEN SOURCE A: PAP SMEAR (SUREPATH) CE Patient Name: CONSTANTINO, MAYRA Kerns. : 1965 (Age: 55) Sex: F Institution: [facility] Location: [facility] Date of Collection: 02/22/2020 Date of Reported: 02/27/2020 11:20 Results to: Jennifer Duke MSN, BSN Jennifer Duke NP CYTOLOGY ORDERABLES Final Resul t Performing Organization Address [facility] de Phone Number SEE NARRATIVE * Hepatitis C antibody, qualitative (05/25/2019 10:24 AM EST) HCV NON-REACTIV E NON-REACTI VE [facility] Blood 05/25/2019 10:2 4 AM EST 05/25/2019 10:26 AM EST Jennifer Duke NP LAB BLOOD ORDERABLES Final Resu lt Performing Organization Address [facility] de Phone Number [facility] [address] [place] [address] * COLONOSCOPY FOR RESULT ENTRY ONLY (12/04/2013) Colonoscopy repeat 10 yrs Historical Provider HEALTH MAINTENANCE Final Result from Last 3 Months or Most Recently Relevant to Health Maintenance Insurance [facility] MEDICARE A Member Subscriber Plan / Payer (Ef fective 2020-) Name:Mayra Constantino Member ID:[id number] Relation to Subscriber:Self Name:Mayra Constantino Subscriber ID:[id number] Payer ID:[id number] Group ID:Not on file Type:Medicare Address: [facility] [employer] [facility] [address] [place] [phone] [facility] MEDICARE A [facility] Marielle RAYMUNDO [place] [facility] MEDICARE A [facility] MEDICARE A Member Subscriber Plan / Payer (Ef fective 2020-Present) Name:Mayra Constantino Member ID:[id number] Relation to Subscriber:Self Name:Mayra Constantino Subscriber ID:[id number] Payer ID:[id number] Group ID:Not on file Type:Medicare Address: [employer] [address] [place] [phone] [facility] MEDICARE A [facility] MEDICARE A Advance Directives For more information, please contact: [phone] (9AM - 5PM [place], Wednesday-Wednesday) Documents on File Type Date Recorded Patient Dice Table Operator Expl anation Healthcare Proxy 03/28/2025 [facility] Proxy Form scan 03/28/2025 [facility] 02/15/2025 MOLST * Full Code (Latest Code Status on File) Date Activated Date Inactivated Comments 02/15/2025 9:52 AM Question Answer Comments Code Status Confirmed With: Patient Care Teams Webmethods Architect Relationship Specialty Start Date End Date Antione Segura PA-C [address] [place] [address] [email or web address] PCP - General Physician Coroner Forensic Technician 10/12/24 Jn Cardoza MD 22 [facility], 2nd [place] [address] Neurology 02/03/24 Denys Henriquez MD [address] [place] [address] [place] [address] Pulmonary Disease 02/03/24 Rhett Cortez MD [address] [place] [address] [email or web address] Insurance Assigned Provider 01/20/25 Additional Source Comments The information contained in this document represents components of the legal health record. It is not the complete legal health record.[facility]
--- OUTSIDE RECORDS SUMMARY | 2025-04-11 20:56 | XMS_ITS | Encounter Summary ---
Author Organization [facility] Address [address] [place] [address] Phone Care Team Providers Care First Aid Director Name Role Phone Jn Cardoza MD Unavailable Denys Henriquez MD Unavailable Antione Segura PA-C Primary Care Provider Rhett Cortez MD Unavailable Reason for Visit * Reason Onset Date Comments PFT 01/24/2025 Encounter Details Date Type Department Care Team (Late st Contact Info) Description 01/24/2025 Telephone [facility] Internal Medicine [address] [place], [place] [phone] Antione Segura PA-C [address] [place] [address] [email or web address] PFT Social History Tobacco Use Types [...] high school, GED, job training, learning the Marshallese language, technical skills, or developing parenting skills)? [...] of Facility fax is being sent to: [facility] pulmonary Document(s) requested:all PFT testing with [employer] [facility] CSS Agent (Please do not reply to this user, as this inbox is not monitored. Thank you.) Thank you. documented in this encounter Plan of Treatment Upcoming Encounters Date Type Department Care Team (Late st Contact Info) Description 04/12/2025 1:30 AM EDT Home Care Visit [facility] [address] [place] [phone] Rich Mariscal [address] [place] [address] 04/12/2025 3:00 PM EDT Home Care Visit [facility] [address] [place] [phone] Thao Kennedy [address] [place] [address] 04/16/2025 2:00 PM EST Office Visit [facility] Internal Medicine [address] [place] [address] Antione Segura PA-C [address] [place] [address] 04/16/2025 3:00 PM EST Home Care Visit [facility] [address] [place] [phone] Kennedy, Thao L [address] [place] [address] 04/18/2025 1:30 AM EST Home Care Visit [facility] [address] [place] [phone] Shakira Hand RN [address] [place] [address] 04/19/2025 2:00 AM EST Home Care Visit [facility] [address] [place] [phone] Kennedy, Thao L [address] [place] [address] 04/23/2025 2:00 AM EST Home Care Visit [facility] [address] [place] [phone] Kennedy, Thao L [address] [place] [address] 04/24/2025 9:40 AM EST Office Visit [facility] [place] [facility] [address] [place] [address] Antione Segura PA-C [address] [place] [address] 04/25/2025 1:30 AM EST Appointment [facility] [address] [place] [phone] Shakira Hand RN [address] [place] [address] 06/25/2025 9:30 AM EST Telemedicine [facility] Neurology [address] [place] [address] Jn Cardoza MD 22 [facility], [address] [place] [phone] documented as of this encounter Visit Diagnoses Not on filedocumented in this encounter Additional Health Concerns Assessment Noted Time PHQ-9 Depression Total Score: 025 9:08 PM EDT PHQ-2 Depression Total Score: 12/28/19 25 9:08 PM EDT documented as of this encounter Care Teams First Aid Director Relationship Specialty Start Date End Date Antione eSgura PA-C [address] [place] [address] [email or web address] PCP - General Physician Rn Acute Care 10/12/24 Jn Cardoza MD [address] [place] [address] Neurology 02/03/24 Denys Henriquez MD [address] [place] [address] [place] [address] Pulmonary Disease 02/03/24 Rhett Cortez MD [address] [place] [address] Insurance Assigned Provider 01/20/25 documented as of this encounter Additional Source Comments The information contained in this document represents components of the legal health record. It is not the complete legal health record.[facility]
--- OUTSIDE RECORDS SUMMARY | 2025-04-11 20:56 | XMS_ITS | Encounter Summary ---
Author Organization [facility] Address [address] [place] [address] Phone Care Team Providers Care Marketing Analytics Analyst Name Role Phone Jn Cardoza MD Unavailable Denys Henriquez MD Unavailable Antione Segura PA-C Primary Care Provider Rhett Cortez MD Unavailable Encounter Details Date Type Department Care Team (Late st Contact Info) Description 03/28/2025 Procedure Pass [facility], Ct Scan - [address] [address] Social History Tobacco Use Types Packs/Day Years [...] Home Care Visit [facility] [address] [place] [phone] Rich Mariscal [address] [place] [address] [email or web address] 04/12/2025 3:00 PM EDT Home Care Visit [facility] [address] [place] [phone] Thao Kennedy [address] [place] [address] [email or web address] 04/16/2025 2:00 PM EST Office Visit [facility] [place] Internal Medicine [address] [place] [address] Antione Segura PA-C [address] [place] [address] [email or web address] 04/16/2025 3:00 PM EST Home Care Visit [facility] [address] [place] [phone] Thao Kennedy [address] [place] [address] [email or web address] 04/18/2025 1:30 AM EST Home Care Visit [facility] [address] [place] [phone] Shakira Hand RN [address] [place] [address] [email or web address] 04/19/2025 2:00 AM EST Home Care Visit [facility] [address] [place] [phone] Thao Kennedy [address] [place] [address] 04/23/2025 2:00 AM EST Home Care Visit [facility] [address] [place] [phone] Thao Kennedy L [address] [place] [address] 04/24/2025 9:40 AM EST Office Visit [facility] Internal Medicine [address] [place] [address] Antione Segura PA-C [address] [place] [address] [email or web address] 04/25/2025 1:30 AM EST Appointment [facility] [address] [place] [address] Shakira Hand, HUA [address] [place] [address] 06/25/2025 9:30 AM EST Telemedicine [facility] Neurology [address] [place] [address] Jn Cardoza MD [address] [place] [address], 2[address] [place] [address] documented as of this encounter Visit Diagnoses Not on filedocumented in this encounter Additional Health Concerns Assessment Noted Time PHQ-9 Depression Total Score: 23 025 3:04 PM EDT PHQ-2 Depression Total Score: 5 03/21/20 25 3:04 PM EDT documented as of this encounter Care Teams Marketing Analytics Analyst Relationship Specialty Start Date End Date Antione Segura PA-C [address] [place] [address] [email or web address] PCP - General Physician Night Shift Supervisor 10/12/24 Jn Cardoza MD [address] [facility], 2nd [place] [address] [email or web address] Neurology 02/03/24 Denys Henriquez MD [address] [place] [address] [place] [address] Pulmonary Disease 02/03/24 Rhett Cortez MD [address] [place] [address] [email or web address] Insurance Assigned Provider 01/20/25 documented as of this encounter Additional Source Comments The information contained in this document represents components of the legal health record. It is not the complete legal health record.[facility]
--- OUTSIDE RECORDS SUMMARY | 2025-04-11 20:56 | XMS_ITS | Encounter Summary ---
Author Organization [facility] Address [address] [place] [address] Phone Care Team Providers Care Car Usher Name Role Phone Lang Germain MD Unavailable Jennifer Duke METAL CONTROL COORDINATOR Primary Care Provider Sirisha Huertas HORTICULTURAL MANAGER Primary Care Provider Jn Cardoza MD Unavailable Denys Henriquez MD Unavailable Liyah Patterson MD Unavailable Liyah Patterson MD Primary Care Provider [phone] Antione Segura PA-C Primary Care Provider Rhett Cortez MD Unavailable Encounter Details Date Type Department Care Team (Late st Contact Info) Description 02/25/2023 Procedure Pass [facility], [address] [address] Social History Tobacco Use Types Packs/Day Years [...] high school, GED, job training, learning the Lithuanian language, technical skills, or developing parenting skills)? [...] Visit [facility] [address] [place] [phone] Rich Mariscal [address] [place] [address] 04/12/2025 3:00 PM EDT Home Care Visit [facility] [address] [place] [phone] Kennedy, Thao L [address] [place] [address] 04/16/2025 2:00 PM EST Office Visit [facility] [place] Internal Medicine [address] [place] [address] Antione Segura PA-C 40 [place] [address] 04/16/2025 3:00 PM EST Home Care Visit [facility] [address] [place] [phone] Kennedy, Thao L [address] [place] [address] 04/18/2025 1:30 AM EST Home Care Visit [facility] [address] [place] [phone] Shakira Hand RN [address] [place] [address] 04/19/2025 2:00 AM EST Home Care Visit [facility] 30 [place] [phone] Kennedy, Thao L 30 [place] [address] 04/23/2025 2:00 AM EST Home Care Visit [facility] 30 [place] [phone] Kennedy, Thao L 30 [place] [address] 04/24/2025 9:40 AM EST Office Visit [facility] Internal Medicine [address] [place] [address] Antione Segura PA-C 40 [place] [address] 04/25/2025 1:30 AM EST Appointment [facility] [address] [place] [phone] Shakira Hand RN [address] [place] [address] 06/25/2025 9:30 AM EST Telemedicine [facility] Neurology [address] [place] [address] Jn Cardoza MD 22 [facility], 2nd [place] [address] documented as of this encounter Visit Diagnoses Not on filedocumented in this encounter Additional Health Concerns Assessment Noted Time PHQ-9 Depression Total Score: 21 023 12:35 PM EDT PHQ-2 Depression Total Score: 2 02/19/20 23 6:55 PM EDT documented as of this encounter Care Teams Car Usher Relationship Specialty Start Date End Date Jennifer Duke, METAL CONTROL COORDINATOR [address] [place] [address] [email or web address] PCP - General Family Medicine 01/31/20 06/22/23 Sirisha Huertas, AGA [address] [place] [address] [email or web address] PCP - General Nurse Practitioner 06/23/23 08/03/24 Liyah Patterson MD [address] [place] [address] [email or web address] PCP - General Family Medicine 08/04/24 10/11/24 Antione Segura PA-C [address] [place] [phone] [email or web address] PCP - General Physician Rx Specialist 10/12/24 Lang Germain MD [address] [place] [address] [email or web address] Insurance Assigned Provider 09/18/23 02/19/24 Jn Cardoza MD 22 [facility], 2nd [place] [address] [email or web address] Neurology 02/03/24 Denys Henriquez MD [address] [place] [address] [place] [address] Pulmonary Disease 02/03/24 Liyah Patterson MD [address] [place] [address] [email or web address] Insurance Assigned Provider 02/19/24 01/20/25 Rhett Cortez MD [address] [place] [address] [email or web address] Insurance Assigned Provider 01/20/25 documented as of this encounter Additional Source Comments The information contained in this document represents components of the legal health record. It is not the complete legal health record.[facility]
--- OUTSIDE RECORDS SUMMARY | 2025-04-11 20:56 | XMS_ITS | Encounter Summary ---
Author Organization [facility] Address [address] [place] [address] Phone Care Team Providers Care Rolls Mill Operator Name Role Phone Charbel Webber MD Unavailable Alverto Gandara MD Unavailable Maikel Rawls MD Unavailable [phone] Lang Germain MD Unavailable Jennifer Duke SEARCH ENGINE MARKETING MANAGER Primary Care Provider Lang Germain MD Primary Care Provider Jennifer Duke SEARCH ENGINE MARKETING MANAGER Unavailable [phone] Jennifer Duke SEARCH ENGINE MARKETING MANAGER Primary Care Provider Lang Germain MD Primary Care Provider Jennifer Duke SEARCH ENGINE MARKETING MANAGER Primary Care Provider Sirisha Huertas AUTO HIKER Primary Care Provider [phone] Jn Cardoza MD Unavailable Denys Henriquez MD Unavailable [phone] Liyah Patterson MD Unavailable Liyah Patterson MD Primary Care Provider Antione Segura PA-C Primary Care Provider Rhett Cortez MD Unavailable Encounter Details Date Type Department Care Team (Late Contact Info) Description 03/20/2019 Telephone [facility] Internal Medicine 22 [place] [address] Jennifer Duke, [place] [address] [facility] [address] [place] [address] [email or web address] Social History Tobacco Use Types Packs/Day Years [...] Visit [facility] [address] [place] [address] Rich Mariscal [address] [place] [address] 04/12/2025 3:00 PM EDT Home Care Visit [facility] 30 [place] [address] Thao Kennedy 30 [place] [address] [email or web address] 04/16/2025 2:00 PM EST Office Visit [facility] Internal Medicine 40 [place] [address] Antione Segura PA-C 40 [place] [address] [email or web address] 04/16/2025 3:00 PM EST Home Care Visit [facility] [address] [place] [phone] Kennedy, Thao L 30 [place] [address] [email or web address] 04/18/2025 1:30 AM EST Home Care Visit [facility] [address] [place] [phone] Shakira Hand RN 168 [place] [address] [email or web address] 04/19/2025 2:00 AM EST Home Care Visit [facility] [address] [place] [phone] Kennedy, Thao L [address] [place] [address] [email or web address] 04/23/2025 2:00 AM EST Home Care Visit [facility] [address] [place] [phone] Kennedy, Thao L [address] [place] [address] [email or web address] 04/24/2025 9:40 AM EST Office Visit [facility] Internal Medicine 40 [place] [address] Antione Segura PA-C 40 [place] [address] [email or web address] 04/25/2025 1:30 AM EST Appointment [facility] [address] [place] [phone] Shakira Hand RN [address] [place] [address] 06/25/2025 9:30 AM EST [facility]icine [facility] Neurology 22 [facility] [place] [address] Jn Cardoza MD 22 [facility], 2nd [place] [address] [email or web address] documented as of this encounter Visit Diagnoses Not on filedocumented in this encounter Additional Health Concerns Assessment Noted Time PHQ-2 Depression Total Score: 0 11/18/19 19 2:05 PM EDT documented as of this encounter Care Teams Rolls Mill Operator Relationship Specialty Start Date End Date Jennifer Duke SEARCH ENGINE MARKETING MANAGER 40 [place] [address] PCP - General Family Medicine 12/14/18 11/12/19 Lang Germain MD 40 [place] [address] [email or web address] PCP - General Internal Medicine 11/13/19 12/03/19 Jennifer Duke SEARCH ENGINE MARKETING MANAGER 40 [place] [address] PCP - General Family Medicine 12/04/19 01/23/20 Lang Germain MD 40 [place] [address] [email or web address] PCP - General Internal Medicine 01/24/20 01/30/20 Jennifer Duke SEARCH ENGINE MARKETING MANAGER 40 [place] [address] [email or web address] PCP - General Family Medicine 01/31/20 06/22/23 Sirisha Huertas FNP [address] [address] [email or web address] PCP - General Nurse Practitioner 06/23/23 08/03/24 Liyah Patterson MD [address] [address] [email or web address] PCP - General Family Medicine 08/04/24 10/11/24 Antione Segura PA-C [address] [place] [address] [email or web address] PCP - General Physician Medical Typist 10/12/24 Charbel Webber MD [address] [place] [address], [address] [place] [address] [email or web address] Historical LMR Provider 04/01/17 0 Alverto Gandara MD [address] [place] [address], 2nd [place] [address] [email or web address] Historical LMR Provider 04/01/17 12/03/19 Maikel Rawls MD [address] [place] [address] [email or web address] Historical LMR Provider 04/01/17 12/03/19 Lang Germain MD [address] [place] [address] Insurance Assigned Provider 09/18/23 02/19/24 Jennifer Duke, [place] 40 [place] [address] Nurse Practitioner Family Medicine 11/13/19 01/30/20 Jn Cardoza MD 22 [facility], 2nd [place] [address] [email or web address] Neurology 02/03/24 Denys Henriquez MD [address] [place] [address] [place] [address] Pulmonary Disease 02/03/24 Liyah Patterson MD 15 [facility] [address] [place] [address] [email or web address] Insurance Assigned Provider 02/19/24 01/20/25 Rhett Cortez MD 40 [place] [address] Insurance Assigned Provider 01/20/25 documented as of this encounter Additional Source Comments The information contained in this document represents components of the legal health record. It is not the complete legal health record.[facility]
--- OUTSIDE RECORDS SUMMARY | 2025-04-11 20:56 | XMS_ITS | Encounter Summary ---
Author Organization [facility] Address [address] [place] [address] [place] [address] Phone Care Team Providers Care Property Management Supervisor Name Role Phone Lang Germain MD Unavailable [phone] Jennifer Duke INCIDENT ANALYST Primary Care Provider Sirisha Huertas ENERGY DIRECTOR Primary Care Provider Jn Cardoza MD Unavailable Denys Henriquez MD Unavailable Liyah Patterson MD Unavailable Liyah Patterson MD Primary Care Provider Antione Segura PA-C Primary Care Provider Rhett Cortez MD Unavailable Encounter Details Date Type Department Care Team (Late st Contact Info) Description 11/11/2021 Transcribe Orders [facility] 30 [place] [address] Jennifer Duke, INCIDENT ANALYST 26 [facility] [address] [place] [address] Social History Tobacco Use Types Packs/Day Years [...] Home Care Visit [facility] [address] [place] [phone] Rich Mariscal [address] [place] [address] 04/12/2025 3:00 PM EDT Home Care Visit [facility] [address] [place] [address] Thao Kennedy L [address] [place] [address] 04/16/2025 2:00 PM EST Office Visit [facility] [place] Internal Medicine 40 [place] [address] Antione Segura PA-C 40 [place] [address] 04/16/2025 3:00 PM EST Home Care Visit [facility] [address] [place] [phone] Kennedy, Thao L [address] [place] [address] 04/18/2025 1:30 AM EST Home Care Visit [facility] [address] [place] [phone] Shakira Hand RN [address] [place] [address] 04/19/2025 2:00 AM EST Home Care Visit [facility] [address] [place] [address] Kennedy, Thao L 30 [place] [address] 04/23/2025 2:00 AM EST Home Care Visit [facility] [address] [place] [address] Kennedy, Thao L [address] [place] [address] 04/24/2025 9:40 AM EST Office Visit [facility] Internal Medicine 40 [place] [address] Antione Segura PA-C 40 [place] [address] [email or web address] 04/25/2025 1:30 AM EST Appointment [facility] [address] [place] [address] Shakira Hand RN 168 [place] [address] 06/25/2025 9:30 AM EST Telemedicine [facility] Neurology [address] [place] [address] Jn Cardoza MD [address] [address] documented as of this encounter Visit Diagnoses Not on filedocumented in this encounter Additional Health Concerns Assessment Noted Time PHQ-2 Depression Total Score: 0 05/25/20 19 9:02 AM EST documented as of this encounter Care Teams Property Management Supervisor Relationship Specialty Start Date End Date Jennifer Duke, INCIDENT ANALYST [address] [place] [address] [email or web address] PCP - General Family Medicine 01/31/20 06/22/23 Sirisha Huertas FNP [address] [place] [address] [email or web address] PCP - General Nurse Practitioner 06/23/23 08/03/24 Liyah Patterson MD [address] [place] [address] [email or web address] PCP - General Family Medicine 08/04/24 10/11/24 Antione Segura PA-C [address] [place] [address] [email or web address] PCP - General Physician Bar Helper 10/12/24 Lang Germain MD [address] [place] [address] [email or web address] Insurance Assigned Provider 09/18/23 02/19/24 Jn Cardoza MD [address] [place] [address], 2nd [place] [address] [email or web address] Neurology 02/03/24 Denys Henriquez MD [address] [place] [address] [place] [address] Pulmonary Disease 02/03/24 Liyah Patterson MD 15 [facility] 201 [place] [address] [email or web address] Insurance Assigned Provider 02/19/24 01/20/25 Rhett Cortez MD [address] [place] [address] [email or web address] Insurance Assigned Provider 01/20/25 documented as of this encounter Additional Source Comments The information contained in this document represents components of the legal health record. It is not the complete legal health record.[facility]
--- OUTSIDE RECORDS SUMMARY | 2025-04-11 20:56 | XMS_ITS | Encounter Summary ---
Author Organization [facility] Address [address] [place] [address] Phone Care Team Providers Care Cofounder Name Role Phone Charbel Webber MD Unavailable Alverto Gandara MD Unavailable Maikel Rawls MD Unavailable [phone] Lang Germain MD Primary Care Provider Jennifer Duke CASE MANAGEMENT SPECIALIST Primary Care Provider Lang Germain MD Primary Care Provider Jennifer Duke CASE MANAGEMENT SPECIALIST Primary Care Provider Lang Germain MD Primary Care Provider Jennifer Duke CASE MANAGEMENT SPECIALIST Primary Care Provider Lang Germain MD Unavailable Lang Germain MD Primary Care Provider Jennifer Duke CASE MANAGEMENT SPECIALIST Primary Care Provider Lang Germain MD Primary Care Provider Jennifer Duke CASE MANAGEMENT SPECIALIST Primary Care Provider Lang Germain MD Primary Care Provider [phone] Jennifer Duke CASE MANAGEMENT SPECIALIST Primary Care Provider [phone] Lang Germain MD Primary Care Provider [phone] Jennifer Duke CASE MANAGEMENT SPECIALIST Unavailable [phone] Jennifer Duke CASE MANAGEMENT SPECIALIST Primary Care Provider [phone] Lang Germain MD Primary Care Provider [phone] Jennifer Duke CASE MANAGEMENT SPECIALIST Primary Care Provider [phone] Aleksandar Sirishafrancisca Kendall SNIPPER Primary Care Provider [phone] Jn Cardoza MD Unavailable Denys Henriquez MD Unavailable [phone] Liyah Patterson MD Unavailable Liyah Patterson MD Primary Care Provider [phone] Antione Segura PA-C Primary Care Provider [phone] Rhett Cortez MD Unavailable Reason for Referral * MRI/CAT Scan - Closed Specialty Diagnoses / Procedures Referred By Contac t Referred To Contact Procedures CT Head Outside (No Interpretation) System, Provider Not In, PhD [address] [address] Referral ID Status Reason Start Date Expiration Date Visits Re quested Visits Authorized [id number] Closed 06/20/2018 06/20/2019 1 1 * MRI/CAT Scan - Closed Specialty Diagnoses / Procedures Referred By Contac t Referred To Contact Procedures CT Face Outside (No Interpretation) System, Provider Not In, PhD [address] [address] Referral ID Status Reason Start Date Expiration Date Visits Re quested Visits Authorized [id number] Closed 06/20/2018 06/20/2019 1 1 Encounter Details Date Type Department Care Team (Late st Contact Info) Description 06/20/2018 Ancillary Orders [facility] [address] [place] [address] System, Provider Not In, [place] [address] Social History Tobacco Use Types Packs/Day Years [...] Visit [facility] [address] [place] [phone] Rich Mariscal [address] [place] [address] 04/12/2025 3:00 PM EDT Home Care Visit [facility] [address] [place] [phone] Thao Kennedy [address] [place] [address] 04/16/2025 2:00 PM EST Office Visit [facility] Internal Medicine 40 [place] [address] Antione Segura PA-C 40 [place] [address] 04/16/2025 3:00 PM EST Home Care Visit [facility] [address] [place] [phone] Brent Thao L [address] [place] [address] 04/18/2025 1:30 AM EST Home Care Visit [facility] [address] [place] [phone] Shakira Hand RN [address] [place] [address] 04/19/2025 2:00 AM EST Home Care Visit [facility] [address] [place] [address] Kennedy, Thao L [address] [place] [address] 04/23/2025 2:00 AM EST Home Care Visit [facility] [address] [place] [phone] Kennedy, Thao L [address] [place] [address] 04/24/2025 9:40 AM EST Office Visit [facility] Internal Medicine 40 [place] [address] Antione Segura PA-C 40 [place] [address] 04/25/2025 1:30 AM EST Appointment [facility] [address] [place] [phone] Shakira Hand RN [address] [place] [address] 06/25/2025 9:30 AM EST Telemedicine [facility] Neurology [address] [place] [address] Jn Cardoza MD [address] [place] [address], 2nd [place] [address] documented as of this encounter Results * [...] documented as of this encounter Care Teams Cofounder Relationship Specialty Start Date End Date Lang Germain MD 40 [place] [address] [email or web address] PCP - General Internal Medicine 06/13/18 06/30/18 Jennifer Duke CASE MANAGEMENT SPECIALIST 40 [place] [address] [email or web address] PCP - General Family Medicine 07/01/18 08/02/18 Lang Germain MD 40 [place] [address] [email or web address] PCP - General Internal Medicine 08/03/18 09/07/18 Jennifer Duke CASE MANAGEMENT SPECIALIST 40 [place] [address] [email or web address] PCP - General Family Medicine 09/08/18 09/14/18 Lang Germain MD 40 [place] [address] [email or web address] PCP - General Internal Medicine 09/15/18 10/02/18 Jennifer Duke NP 40 [place] [address] [email or web address] PCP - General Family Medicine 10/03/18 10/05/18 Lang Germain MD 40 [place] [address] [email or web address] PCP - General Internal Medicine 10/06/18 10/12/18 Jennifer Duke CASE MANAGEMENT SPECIALIST 40 [place] [address] [email or web address] PCP - General Family Medicine 10/13/18 11/09/18 Lang Germain MD 40 [place] [address] [email or web address] PCP - General Internal Medicine 11/10/18 11/22/18 Jennifer Duke NP 40 [place] [address] [email or web address] PCP - General Family Medicine 11/23/18 11/30/18 Lang Germain MD 40 [place] [address] [email or web address] PCP - General Internal Medicine 12/01/18 12/13/18 Jennifer Duke CASE MANAGEMENT SPECIALIST 40 [place] [address] [email or web address] PCP - General Family Medicine 12/14/18 11/12/19 Lang Germain MD 40 [place] [address] [email or web address] PCP - General Internal Medicine 11/13/19 12/03/19 Jennifer Duke NP [address] [place] [address] [email or web address] PCP - General Family Medicine 12/04/19 01/23/20 Lang Germain MD 40 [place] [address] [email or web address] PCP - General Internal Medicine 01/24/20 01/30/20 Jennifer Duke NP [address] [place] [address] [email or web address] PCP - General Family Medicine 01/31/20 06/22/23 Sirisha Huertas FNP [address] [address] [email or web address] PCP - General Nurse Practitioner 06/23/23 08/03/24 Liyah Patterson MD [address] [place] [address]. [address] [place] [address] [email or web address] PCP - General Family Medicine 08/04/24 10/11/24 Antione Segura PA-C [address] [place] [address] PCP - General Physician Silviculture Professor 10/12/24 Charbel Webber MD 22 [facility], [address] [place] [address] [email or web address] Historical LMR Provider 04/01/17 0 Alverto Gandara MD [address] [place] [address], 2nd [place] [address] [email or web address] Historical LMR Provider 04/01/17 12/03/19 Maikel Rawls MD [address] [place] [address] [email or web address] Historical LMR Provider 04/01/17 12/03/19 Lang Germain MD [address] [place] [address] [email or web address] Insurance Assigned Provider 09/18/23 02/19/24 Jennifer Duke NP [address] [place] [address] [email or web address] Nurse Practitioner Family Medicine 11/13/19 01/30/20 Jn Cardoza MD [address] [place] [address] 2nd [place] [address] Neurology 02/03/24 Denys Henriquez MD [address] [place] [address] [place] [address] Pulmonary Disease 02/03/24 Liyah Patterson MD 15 [facility] [address] [place] [address] Insurance Assigned Provider 02/19/24 01/20/25 Rhett Cortez MD [address] [place] [address] Insurance Assigned Provider 01/20/25 documented as of this encounter Additional Source Comments The information contained in this document represents components of the legal health record. It is not the complete legal health record.[facility]
--- OUTSIDE RECORDS SUMMARY | 2025-04-11 20:56 | XMS_ITS | Encounter Summary ---
Author Organization [facility] Address [address] [place] [address] Phone Care Team Providers Care Aircraft Machinist Name Role Phone Lang Germain MD Unavailable Jennifer Duke LOG POND WORKER Primary Care Provider Sirisha Huertas COURT MANAGER Primary Care Provider Jn Cardoza MD Unavailable Denys Henriquez MD Unavailable [phone] Liyah Patterson MD Unavailable Liyah Patterson MD Primary Care Provider [phone] Antione Segura PA-C Primary Care Provider Rhett Cortez MD Unavailable Encounter Details Date Type Department Care Team (Late st Contact Info) Description 05/06/2021 Procedure Pass [facility], [address] [address] Social History Tobacco Use Types Packs/Day Years [...] [facility] [address] [place] [phone] Rich Mariscal [address] [place] [address] 04/12/2025 3:00 PM EDT Home Care Visit [facility] [address] [place] [phone] Brent, Thao L [address] [place] [address] 04/16/2025 2:00 PM EST Office Visit [facility] [place] [facility] 40 [place] [address] Antione Segura PA-C 40 [place] [address] 04/16/2025 3:00 PM EST Home Care Visit [facility] [address] [place] [phone] Kennedy, Thao L [address] [place] [address] 04/18/2025 1:30 AM EST Home Care Visit [facility] [address] [place] [phone] Shakira Hand, HUA [address] [place] [address] 04/19/2025 2:00 AM EST Home Care Visit [facility] 30 [place] [address] Kennedy, Thao L 30 [place] [address] 04/23/2025 2:00 AM EST Home Care Visit [facility] 30 [place] [address] Kennedy, Thao L 30 [place] [address] 04/24/2025 9:40 AM EST Office Visit [facility] Internal Medicine 40 [place] [address] Antione Segura PA-C 40 [place] [address] [email or web address] 04/25/2025 1:30 AM EST Appointment [facility] [address] [place] [address] Shakira Hand, HUA [address] [place] [address] 06/25/2025 9:30 AM EST Telemedicine [facility] Neurology [address] [place] [address] Jn Cardoza MD 22 [facility], 2nd [place] [address] [email or web address] documented as of this encounter Visit Diagnoses Not on filedocumented in this encounter Additional Health Concerns Assessment Noted Time PHQ-2 Depression Total Score: 0 05/25/20 19 9:02 AM EST documented as of this encounter Care Teams Aircraft Machinist Relationship Specialty Start Date End Date Jennifer Duke, [place] 40 [place] [address] [email or web address] PCP - General Family Medicine 01/31/20 06/22/23 Sirisha Huertas FNP [address] [place] [address] [email or web address] PCP - General Nurse Practitioner 06/23/23 08/03/24 Liyah Patterson MD [address] [place] [address] [email or web address] PCP - General Family Medicine 08/04/24 10/11/24 Antione Segura PA-C [address] [place] [email or web address] PCP - General Physician Kiln Head House Operator 10/12/24 Lang Germain MD [address] [place] [address] [email or web address] Insurance Assigned Provider 09/18/23 02/19/24 Jn Cardoza MD 22 [facility], 2nd [place] [address] [email or web address] Neurology 02/03/24 Denys Henriquez MD [address] [place] [address] [place] [address] Pulmonary Disease 02/03/24 Liyah Patterson MD [address] [place] [address] [email or web address] Insurance Assigned Provider 02/19/24 01/20/25 Rhett Cortez MD [address] [place] [address] [email or web address] Insurance Assigned Provider 01/20/25 documented as of this encounter Additional Source Comments The information contained in this document represents components of the legal health record. It is not the complete legal health record.[facility]
--- OUTSIDE RECORDS SUMMARY | 2025-04-11 20:56 | XMS_ITS | Encounter Summary ---
Author Organization [facility] Address [address] [address] Phone Care Team Providers Care Financial Services Consultant Name Role Phone Jn Cardoza MD Unavailable Denys Henriquez MD Unavailable Antione Segura PA-C Primary Care Provider Rhett Cortez MD Unavailable Encounter Details Date Type Department Care Team (Late st Contact Info) Description 02/09/2025 Home Health Resumption of Care Planning [facility] [address] [place] [address] Koki Simons RN [address] [place] [address] [email or web address] Social History Tobacco [...] high school, GED, job training, learning the Dutch language, technical skills, or developing parenting skills)? [...] Visit [facility] [address] [place] [phone] Rich Mariscal 168 [place] [address] [email or web address] 04/12/2025 3:00 PM EDT Home Care Visit [facility] [address] [place] [phone] Eliseo Kennedyica L [address] [place] [address] [email or web address] 04/16/2025 2:00 PM EST Office Visit [facility] [place] Internal Medicine 40 [place] [address] Antione Segura PA-C 40 [place] [address] [email or web address] 04/16/2025 3:00 PM EST Home Care Visit [facility] [address] [place] [phone] Kennedy, Thao L [address] [place] [address] [email or web address] 04/18/2025 1:30 AM EST Home Care Visit [facility] [address] [place] [phone] Shakira Hand, HUA [address] [place] [address] 04/19/2025 2:00 AM EST Home Care [facility] 30 [place] [address] KennedyThoa espinosa L 30 [place] [address] 04/23/2025 2:00 AM EST Home Care [facility] 30 [place] [address] Kennedy, Thao L 30 [place] [address] 04/24/2025 9:40 AM EST Office Visit [facility] Internal Medicine 40 [place] [address] Antione Segura PA-C 40 [place] [address] 04/25/2025 1:30 AM EST Appointment [facility] [address] [place] [address] Shakira Hand, HUA [address] [place] [address] 06/25/2025 9:30 AM EST Telemedicine [facility] Neurology [address] [place] [address] Jn Cardoza MD 22 [place] [facility], 2nd [place] [address] documented as of this encounter Visit Diagnoses Not on filedocumented in this encounter Additional Health Concerns Assessment Noted Time PHQ-9 Depression Total Score: 15 025 9:44 AM EDT PHQ-2 Depression Total Score: 4 02/01/20 25 9:44 AM EDT documented as of this encounter Care Teams Financial Services Consultant Relationship Specialty Start Date End Date Antione Segura PA-C 40 [place] [address] [email or web address] PCP - General Physician Financial Legal Assistant 10/12/24 Jn Cardoza MD 22 [place] [facility], 2nd [place] [address] Neurology 02/03/24 Denys Henriquez MD [address] [place] [address] [place] [address] Pulmonary Disease 02/03/24 Rhett Cortez MD 40 [place] [address] [email or web address] Insurance Assigned Provider 01/20/25 documented as of this encounter Additional Source Comments The information contained in this document represents components of the legal health record. It is not the complete legal health record.[facility]
--- OUTSIDE RECORDS SUMMARY | 2025-04-11 20:56 | XMS_ITS | Encounter Summary ---
Author Organization [facility] Address [address] [place] [address] Phone Care Team Providers Care Rn Surgical Name Role Phone Jn Cardoza MD Unavailable Denys Henriquez MD Unavailable [phone] Antione Segura PA-C Primary Care Provider [phone] Rhett Cortez MD Unavailable Reason for Referral * MRI/CAT Scan - Authorized Specialty Diagnoses / Procedures Referred By Dary smith Referred To Contact Radiology Diagnoses Abnormal finding on imaging Procedures CT Neck Antione Segura PA-C [address] [place] [address] Phone: tel: fax: [email or web address] Referral ID Status Reason Start Date Expiration Date V isits Requested Visits Authorized [id number] Authorized 04/06/2025 04/06/2026 1 1 Encounter Details Date Type Department Care Team (Late st Contact Info) Description 04/06/2025 Orders Only [facility] Internal Medicine 40 [place], [place] [phone] Antione Segura PA-C 40 [place] [address] [email or web address] Abnormal finding on imaging (Primary Dx); Allergic [...] Care [facility] [address] [place] [phone] [place] [address] 04/12/2025 3:00 PM EDT Home Care Visit [facility] [address] [place] [phone] Thao Kennedy 30 [place] [address] 04/16/2025 2:00 PM EST Office Visit [facility] [place] Internal [facility] 40 [place], [place] [phone] Antione Segura PA-C [address] [place], [place] [phone] 04/16/2025 3:00 PM EST Home Care Visit [facility] [address] [place] [phone] Kennedy, Thao L [address] [place] [address] 04/18/2025 1:30 AM EST Home Care Visit [facility] [address] [place] [phone] Shakira Hand RN [address] [place] [address] 04/19/2025 2:00 AM EST Home Care Visit [facility] [address] [place] [phone] Kennedy, Thao L [address] [place] [address] 04/23/2025 2:00 AM EST Home Care Visit [facility] [address] [place] [phone] Kennedy, Thao L [address] [place] [address] 04/24/2025 9:40 AM EST Office Visit [facility] [place] [facility] 40 [place] [address] Antione Segura PA-C 40 [place] [address] [email or web address] 04/25/2025 1:30 AM EST Appointment [facility] [address] [place] [phone] Shakira Hand RN [address] [place] [address] 06/25/2025 9:30 AM EST Telemedicine [facility] Neu[place] [address] Jn Cardoza MD [address] [address] [email or web address] Scheduled Orders Name Type Priority Associated Diagnoses [...] documented as of this encounter Care Teams Rn Surgical Relationship Specialty Start Date End Date Antione Segura PA-C [address] [place] [phone] [email or web address] PCP - General Physician Internet Network Specialist 10/12/24 Jn Cardoza MD [address] [place] [address] Neurology 02/03/24 Denys Henriquez MD [address] [place] [address] [place] [address] Pulmonary Disease 02/03/24 Rhett Cortez MD [address] [place] [address] [email or web address] Insurance Assigned Provider 01/20/25 documented as of this encounter Additional Source Comments The information contained in this document represents components of the legal health record. It is not the complete legal health record.[facility]
--- OUTSIDE RECORDS SUMMARY | 2025-04-11 20:56 | XMS_ITS | Encounter Summary ---
Author Organization [facility] Address [address] [place] [address] Phone Care Team Providers Care Concrete Mixer Operator Name Role Phone Lang Germain MD Unavailable [phone] Jennifer Duke PRINCIPLE INDUSTRIAL HYGIENIST Primary Care Provider Sirisha Huertas SPOT WELDER Primary Care Provider [phone] Jn Cardoza MD Unavailable Denys Henriquez MD Unavailable [phone] Liyah Patterson MD Unavailable Liyah Patterson MD Primary Care Provider [phone] Antione Segura PA-C Primary Care Provider Rhett Cortez MD Unavailable Encounter Details Date Type Department Care Team (Late st Contact Info) Description 11/27/2021 Procedure Pass [facility], [address] [place] [address] Social History Tobacco Use Types Packs/Day Years [...] Care [facility] [address] [place] [address] Rich Mariscal [address] [place] [address] 04/12/2025 3:00 PM EDT Home Care Visit [facility] [address] [place] [address] Eliseo Kennedyica L [address] [place] [address] 04/16/2025 2:00 PM EST Office Visit [facility] [place] Internal Medicine 40 [place] [address] Antione Segura PA-C 40 [place], [place] [phone] 04/16/2025 3:00 PM EST Home Care Visit [facility] [address] [place] [address] Kennedy, Thao L [address] [place] [address] 04/18/2025 1:30 AM EST Home Care Visit [facility] [address] [place] [phone] Shakira Hand RN [address] [place] [address] [email or web address] 04/19/2025 2:00 AM EST Home Care Visit [facility] [address] [place] [phone] Kennedy, Thao L [address] [place] [address] 04/23/2025 2:00 AM EST Home Care Visit [facility] [address] [place] [phone] Kennedy, Thao L 30 [place] [address] [email or web address] 04/24/2025 9:40 AM EST Office Visit [facility] Internal Medicine 40 [place] [address] Antione Segura PA-C 40 [place] [address] 04/25/2025 1:30 AM EST Appointment [facility] [address] [place] [phone] Shakira Hand RN [address] [place] [address] 06/25/2025 9:30 AM EST Telemedicine [facility] Neurology [address] [place] [address] Jn Cardoza MD [address] [place] [address], 2nd [place] [address] [email or web address] documented as of this encounter Visit Diagnoses Not on filedocumented in this encounter Additional Health Concerns Assessment Noted Time PHQ-2 Depression Total Score: 0 05/25/20 19 9:02 AM EST documented as of this encounter Care Teams Concrete Mixer Operator Relationship Specialty Start Date End Date Jennifer Duke, PRINCIPLE INDUSTRIAL HYGIENIST [address] [place] [address] [email or web address] PCP - General Family Medicine 01/31/20 06/22/23 Sirisha Huertas FNP [address] [place] [address] [email or web address] PCP - General Nurse Practitioner 06/23/23 08/03/24 Liyah Patterson MD [address] [place] [address] [email or web address] PCP - General Family Medicine 08/04/24 10/11/24 Antione Segura PA-C [address] [place] [address] [email or web address] PCP - General Physician Dielectric Machine Operator 10/12/24 Lang Germain MD [address] [place] [address] [email or web address] Insurance Assigned Provider 09/18/23 02/19/24 Jn Cardoza MD [address] [place] [address], 2nd [place] [address] [email or web address] Neurology 02/03/24 Denys Henriquez MD [address] [place] [address] [place] [address] Pulmonary Disease 02/03/24 Liyah Patterson MD [address] [place] [address] [email or web address] Insurance Assigned Provider 02/19/24 01/20/25 Rhett Cortez MD 40 [place] [address] Insurance Assigned Provider 01/20/25 documented as of this encounter Additional Source Comments The information contained in this document represents components of the legal health record. It is not the complete legal health record.[facility]
--- OUTSIDE RECORDS SUMMARY | 2025-04-11 20:56 | XMS_ITS | Encounter Summary ---
Author Organization [facility] Address [address] [place] [address] Phone Care Team Providers Care Grape Picker Name Role Phone Lang Germain MD Unavailable [phone] Jennifer Duke FLIGHT CONTROL SPECIALIST Primary Care Provider Sirisha Huertas TOY TRAINS AND ACCESSORIES SALESPERSON Primary Care Provider Jn Cardoza MD Unavailable Denys Henriquez MD Unavailable Liyah Patterson MD Unavailable Liyah Patterson MD Primary Care Provider [phone] Antione Segura PA-C Primary Care Provider Rhett Cortez MD Unavailable Encounter Details Date Type Department Care Team (Late st Contact Info) Description 06/30/2022 Procedure Pass [facility], Ct Scan - [address] [address] Social History Tobacco Use Types Packs/Day Years [...] 1:30 AM EDT Home Care Visit [facility] [address] [place] [phone] Rich Mariscal [address] [place] [address] 04/12/2025 3:00 PM EDT Home Care Visit [facility] [address] [place] [phone] Brent Thao L [address] [place] [address] 04/16/2025 2:00 PM EST Office Visit [facility] [place] Internal Medicine 40 [place] [address] Antione Segura PA-C 40 [place] [address] 04/16/2025 3:00 PM EST Home Care Visit [facility] [address] [place] [phone] Kennedy, Thao L [address] [place] [address] 04/18/2025 1:30 AM EST Home Care Visit [facility] [address] [place] [phone] Shakira Hand, HUA [address] [place] [address] 04/19/2025 2:00 AM EST Home Care Visit [facility] 30 [place] [address] Kennedy, Thao L 30 [place] [address] 04/23/2025 2:00 AM EST Home Care Visit [facility] [address] [place] [phone] Kennedy, Thao L 30 [place] [address] 04/24/2025 9:40 AM EST Office Visit [facility] Internal Medicine 40 [place] [address] Antione Segura PA-C 40 [place] [address] 04/25/2025 1:30 AM EST Appointment [facility] [address] [place] [address] Shakira Hnad, HUA [address] [place] [address] 06/25/2025 9:30 AM EST Telemedicine [facility] Neurology [address] [place] [address] Jn Cardoza MD 22 [facility], 2nd [place] [address] documented as of this encounter Visit Diagnoses Not on filedocumented in this encounter Additional Health Concerns Assessment Noted Time PHQ-9 Depression Total Score: 18 023 8:53 AM EST PHQ-2 Depression Total Score: 6 06/26/19 23 8:53 AM EST documented as of this encounter Care Teams Grape Picker Relationship Specialty Start Date End Date Jennifer Duke, FLIGHT CONTROL SPECIALIST [address] [place] [address] [email or web address] PCP - General Family Medicine 01/31/20 06/22/23 Sirisha Huertas, TOY TRAINS AND ACCESSORIES SALESPERSON [address] [place] [address] [email or web address] PCP - General Nurse Practitioner 06/23/23 08/03/24 Liyah Patterson MD [address] [place] [address] [email or web address] PCP - General Family Medicine 08/04/24 10/11/24 Antione Segura PA-C [address] [place] [address] [email or web address] PCP - General Physician Piano Mover 10/12/24 Lang Germain MD [address] [place] [address] [email or web address] Insurance Assigned Provider 09/18/23 02/19/24 Jn Cardoza MD [address] [place] [address], 2nd [place] [address] [email or web address] Neurology 02/03/24 Denys Henriquez MD [address] [place] [address] [place] [address] Pulmonary Disease 02/03/24 Liyah Patterson MD [address] [place] [address] [email or web address] Insurance Assigned Provider 02/19/24 01/20/25 Rhett Cortez MD [address] [place] [address] [email or web address] Insurance Assigned Provider 01/20/25 documented as of this encounter Additional Source Comments The information contained in this document represents components of the legal health record. It is not the complete legal health record.[facility]
--- OUTSIDE RECORDS SUMMARY | 2025-04-11 20:56 | XMS_ITS | Encounter Summary ---
Author Organization [facility] Address [address] [place] [address] Phone Care Team Providers Care Rn Urology Name Role Phone Jn Cardoza MD Unavailable Denys Henriquez MD Unavailable Antione Segura PA-C Primary Care Provider [phone] Rhett Cortez MD Unavailable Reason for Visit * Reason Comments Medication Refill Encounter Details Date Type Department Care Team (Late st Contact Info) Description 04/07/2025 Refill [facility] [place] Internal Medicine [address] [place], [place] [phone] Antione Segura PA-C [address] [place], [place] [phone] [email or web address] Medication Refill Social History Tobacco Use Types [...] Progress Notes * Gwen Jennings CMA - 04/09/2025 7:11 AM EDT Images from the original note were not included. Rx Care Gap Status - Instructions for Clinical Staff (prescriber discretion applies): > Mismatch review guide > Check PDMP for all controlled medication requests. > N/a - No action needed Visit Info Last visit: 03/28/2025 Antione Segura PA-C - Internal Medicine [facility] > Requested f/u: Return in about 1 month (around 04/28/2025) for Recheck 40 minutes . Upcoming visit: 04/24/2025 Antione Segura PA-C - Internal Medicine [facility] ACTIONS TAKEN BY Gwen Jennings CMA - Checked PDMP/[place]. Antiepileptic Without Labs Rx Protocol - gabapentin Criteria met; renew for up to 12 months. Visit in the past 14 months: Yes Non-Opioid Controlled Substance With PDMP Rx Protocol - gabapentin Renewal is at prescriber discretion. Visit in the past 12 months: Yes documented in this encounter Plan of Treatment Upcoming Encounters Date Type Department Care Team (Late st Contact Info) Description 04/12/2025 1:30 AM EDT Home [facility] [address] [place] [address] Rich Mariscal [address] [place] [address] [email or web address] 04/12/2025 3:00 PM EDT Home Care Visit [facility] [address] [place] [address] Kennedy, Thao L [address] [place] [address] 04/16/2025 2:00 PM EST Office Visit [facility] Internal Medicine [address] [place] [address] Antione Segura PA-C 40 [place] [address] 04/16/2025 3:00 PM EST Home [facility] [address] [place] [phone] Kennedy, Thao L [address] [place] [address] 04/18/2025 1:30 AM EST Home Care Visit [facility] [address] [place] [phone] Shakira Hand, HUA [address] [place] [address] 04/19/2025 2:00 AM EST Home Care Visit [facility] [address] [place] [phone] Kennedy, Thao L 30 [place] [address] 04/23/2025 2:00 AM EST Home Care Visit [facility] [address] [place] [phone] Kennedy, Thao L 30 [place] [address] 04/24/2025 9:40 AM EST Office Visit [facility] Internal Medicine [address] [place] [address] Antione Segura PA-C [address] [place] [address] 04/25/2025 1:30 AM EST Appointment [facility] [address] [place] [address] Shakira Hand RN [address] [place] [address] [email or web address] 06/25/2025 9:30 AM EST Telemedicine [facility] Neurology [address] [place] [address] Jn Cardoza MD [address] [place] [address] [email or web address] documented as of this encounter Visit Diagnoses Diagnosis Trigeminal neuralgia 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 Occipital neuralgia of left side documented in this encounter Additional Health Concerns Assessment Noted Time PHQ-9 Depression Total Score: 23 025 3:04 PM EDT PHQ-2 Depression Total Score: 5 03/21/20 25 3:04 PM EDT documented as of this encounter Care Teams Rn Urology Relationship Specialty Start Date End Date Antione Segura PA-C [address] [place] [address] PCP - General Physician Data Management Analyst 10/12/24 Jn Cardoza MD [address] [place] [address] Neurology 02/03/24 Denys Henriquez MD [address] [place] [address] [place] [address] Pulmonary Disease 02/03/24 Rhett Cortez MD [address] [place] [address] [email or web address] Insurance Assigned Provider 01/20/25 documented as of this encounter Additional Source Comments The information contained in this document represents components of the legal health record. It is not the complete legal health record.[facility]
--- OUTSIDE RECORDS SUMMARY | 2025-04-11 20:56 | XMS_ITS | Encounter Summary ---
Author Organization [facility] Address [address] [address] Phone Care Team Providers Care Tamping Machine Operator Name Role Phone Jn Cardoza MD Unavailable Denys Henriquez MD Unavailable Liyah Patterson MD Unavailable Antione Segura-C Primary Care Provider Rhett Cortez MD Unavailable Encounter Details Date Type Department Care Team (Late st Contact Info) Description 01/09/2025 Home Health [facility] [address] [place] [address] Koki Simons, HUA [address] [place] [address] Social History Tobacco Use Types Packs/Day Years [...] Care Visit [facility] [address] [place] [phone] Rich Mariscal [address] [place] [address] [email or web address] 04/12/2025 3:00 PM EDT Home Care Visit [facility] [address] [place] [address] Thao Kennedy [address] [place] [address] 04/16/2025 2:00 PM EST Office Visit [facility] [place] Internal Medicine 40 [place] [address] Antione Segura PA-C 40 [place] [address] 04/16/2025 3:00 PM EST Home Care Visit [facility] [address] [place] [phone] Eliseo Kennedyica L [address] [place] [address] 04/18/2025 1:30 AM EST Home Care Visit [facility] [address] [place] [phone] Shakira Hand RN [address] [place] [address] 04/19/2025 2:00 AM EST Home Care Visit [facility] [address] [place] [phone] Kennedy, Thao L [address] [place] [address] 04/23/2025 2:00 AM EST Home Care Visit [facility] [address] [place] [address] Kennedy, Thao L [address] [place] [address] 04/24/2025 9:40 AM EST Office Visit [facility] Internal Medicine 40 [place] [address] Antione Segura PA-C 40 [place] [address] [email or web address] 04/25/2025 1:30 AM EST Appointment [facility] [address] [place] [address] Shakira Hand RN [address] [place] [address] 06/25/2025 9:30 AM EST Telemedicine [facility] Neurology [address] [place] [address] Jn Cardoza MD 22 [facility], 2nd [place] [address] documented as of this encounter Visit Diagnoses Not on filedocumented in this encounter Additional Health Concerns Assessment Noted Time PHQ-9 Depression Total Score: 20 025 9:08 PM EDT PHQ-2 Depression Total Score: 6 12/28/19 25 9:08 PM EDT documented as of this encounter Care Teams Tamping Machine Operator Relationship Specialty Start Date End Date Antione Segura PA-C 40 [place] [address] [email or web address] PCP - General Physician Operations Planner 10/12/24 Jn Cardoza MD 22 [facility], 2nd [place] [address] Neurology 02/03/24 Denys Henriquez MD [address] [place] [address] [place] [address] Pulmonary Disease 02/03/24 Liyah Patterson MD 15 [facility] Subhash. [address] [place] [address] [email or web address] Insurance Assigned Provider 02/19/24 01/20/25 Rhett Cortez MD 40 [place] [address] [email or web address] Insurance Assigned Provider 01/20/25 documented as of this encounter Additional Source Comments The information contained in this document represents components of the legal health record. It is not the complete legal health record.[facility]
--- OUTSIDE RECORDS SUMMARY | 2025-04-11 20:56 | XMS_ITS | Encounter Summary ---
Author Organization [facility] Address [address] [place] [address] Phone Care Team Providers Care Pants Presser Automatic Name Role Phone Charbel Webber MD Unavailable Alverto Gandara MD Unavailable Maikel Rawls MD Unavailable [phone] Jennifer Duke RADIOLOGY TEACHER Primary Care Provider Lnag Germain MD Primary Care Provider Jennifer Duke RADIOLOGY TEACHER Primary Care Provider Lang Germain MD Unavailable Lang Germain MD Primary Care Provider Jennifer Duke RADIOLOGY TEACHER Primary Care Provider Lang Germain MD Primary Care Provider Jennifer Duke RADIOLOGY TEACHER Primary Care Provider Lang Germain MD Primary Care Provider Jennifer Duke RADIOLOGY TEACHER Primary Care Provider Lang Germain MD Primary Care Provider Coker, Jennifer L RADIOLOGY TEACHER Unavailable [phone] Jennifer Duke RADIOLOGY TEACHER Primary Care Provider [phone] Lang Germain MD Primary Care Provider [phone] Jennifer Duke RADIOLOGY TEACHER Primary Care Provider [phone] Sirisha Huertsa STUDIO RECEPTIONIST Primary Care Provider [phone] Jn Cardoza MD Unavailable Denys Henriquez MD Unavailable Liyah Patterson MD Unavailable Liyah Patterson MD Primary Care Provider [phone] Antione Segura PA-C Primary Care Provider [phone] Rhett Cortez MD Unavailable Encounter Details Date Type Department Care Team (Late st Contact Info) Description 09/13/2018 Procedure Pass [facility], [address] [address] Social History Tobacco Use Types Packs/Day Years [...] 04/12/2025 1:30 AM EDT [facility] [address] [place] [phone] Rich Mariscal [address] [place] [address] [phone] 04/12/2025 3:00 PM EDT Home Care Visit [facility] [address] [place] [address] Kennedy, Thao L [address] [place] [address] 04/16/2025 2:00 PM EST Office Visit [facility] Internal Medicine 40 [place] [address] Antione Segura PA-C 40 [place] [address] 04/16/2025 3:00 PM EST Home Care Visit [facility] [address] [place] [phone] Kennedy, Thao L [address] [place] [address] 04/18/2025 1:30 AM EST Home Care Visit [facility] [address] [place] [phone] Shakira Hand, HUA [address] [place] [address] 04/19/2025 2:00 AM EST Home Care Visit [facility] [address] [place] [phone] Kennedy, Thao L [address] [place] [address] 04/23/2025 2:00 AM EST Home Care Visit [facility] [address] [place] [phone] Kennedy, Thao L [address] [place] [address] 04/24/2025 9:40 AM EST Office Visit [facility] Internal Medicine 40 [place] [address] Antione Segura PA-C 40 [place] [address] 04/25/2025 1:30 AM EST Appointment [facility] [address] [place] [address] Shakira Hand RN [address] [place] [address] [email or web address] 06/25/2025 9:30 AM EST Telemedicine [facility] Neurology 22 [place] [address] Jn Cardoza MD 22 [facility], 2nd [place] [address] [email or web address] documented as of this encounter Visit Diagnoses Not on filedocumented in this encounter Additional Health Concerns Assessment Noted Time PHQ-2 Depression Total Score: 0 08/20/19 9:13 AM EST documented as of this encounter Care Teams Pants Presser Automatic Relationship Specialty Start Date End Date Jennifer Duke NP [address] [place] [address] PCP - General Family Medicine 09/08/18 09/14/18 Lang Germain MD 40 [place] [address] PCP - General Internal Medicine 09/15/18 10/02/18 Jennifre Duke NP [address] [place] [address] PCP - General Family Medicine 10/03/18 10/05/18 Lang Germain MD [address] [place] [address] [email or web address] PCP - General Internal Medicine 10/06/18 10/12/18 Jennifer Duke NP [address] [place] [address] PCP - General Family Medicine 10/13/18 11/09/18 Lang Germain MD [address] [place] [address] [email or web address] PCP - General Internal Medicine 11/10/18 11/22/18 Jennifer Duke NP [address] [place] [address] PCP - General Family Medicine 11/23/18 11/30/18 Lang Germain MD [address] [place] [address] [email or web address] PCP - General Internal Medicine 12/01/18 12/13/18 Jennifer Duke NP [address] [place] [address] PCP - General Family Medicine 12/14/18 11/12/19 Lang Germain MD [address] [place] [address] PCP - General Internal Medicine 11/13/19 12/03/19 Jennifer Duke NP [address] [address] [email or web address] PCP - General Family Medicine 12/04/19 01/23/20 Lang Germain MD [address] [place] [address] [email or web address] PCP - General Internal Medicine 01/24/20 01/30/20 Jennifer Duke RADIOLOGY TEACHER [address] [address] [email or web address] PCP - General Family Medicine 01/31/20 06/22/23 Sirisha Huertas FNP [address] [place] [address] [email or web address] PCP - General Nurse Practitioner 06/23/23 08/03/24 Liyah Patterson MD [address] [place] [address] [email or web address] PCP - General Family Medicine 08/04/24 10/11/24 Antione Segura PA-C [address] [place] [email or web address] PCP - General Physician Foreign Exchange Services Manager 10/12/24 Charbel Webber MD [address] [place] [address], [address] [place] [address] [email or web address] Historical LMR Provider 04/01/17 0 Alverto Gandara MD [address] [address] [email or web address] Historical LMR Provider 04/01/17 12/03/19 Maikel Rawls MD [address] [address] [email or web address] Historical LMR Provider 04/01/17 12/03/19 Lang Germain MD [address] [place] [address] [email or web address] Insurance Assigned Provider 09/18/23 02/19/24 Jennifer Duke NP [address] [place] [address] [email or web address] Nurse Practitioner Family Medicine 11/13/19 01/30/20 Jn Cardoza MD [address] [address] [email or web address] Neurology 02/03/24 Denys Henriquez MD [address] [place] [address] [place] [address] Pulmonary Disease 02/03/24 Liyah Patterson MD [address] [address] [email or web address] Insurance Assigned Provider 02/19/24 01/20/25 Rhett Cortez MD [address] [place] [address] [email or web address] Insurance Assigned Provider 01/20/25 documented as of this encounter Additional Source Comments The information contained in this document represents components of the legal health record. It is not the complete legal health record.[facility]
--- OUTSIDE RECORDS SUMMARY | 2025-04-11 20:56 | XMS_ITS | Encounter Summary ---
Author Organization [facility] Address [address] [place] [address] Phone Care Team Providers Care Director Industrial Museum Name Role Phone Lang Germain MD Unavailable Jennifer Duke DIGITAL MEDIA INTERN Primary Care Provider Sirisha Huertas TWISTER HAND Primary Care Provider Jn Cardoza MD Unavailable Denys Henriquez MD Unavailable Liyah Patterson MD Unavailable Liyah Patterson MD Primary Care Provider [phone] Antione Segura PA-C Primary Care Provider Rhett Cortez MD Unavailable Encounter Details Date Type Department Care Team (Late st Contact Info) Description 09/01/2021 Procedure Pass [address] [address] Social History Tobacco Use Types Packs/Day Years [...] Care Visit [facility] [address] [place] [phone] Rich Mariscal [address] [place] [address] [email or web address] 04/12/2025 3:00 PM EDT Home Care Visit [facility] [address] [place] [phone] Brent, Thao L [address] [place] [address] [email or web address] 04/16/2025 2:00 PM EST Office Visit [facility] [place] Internal Medicine 40 [place] [address] Antione Segura PA-C 40 [place] [address] [email or web address] 04/16/2025 3:00 PM EST Home Care Visit [facility] [address] [place] [phone] Kennedy, Thao L [address] [place] [address] [email or web address] 04/18/2025 1:30 AM EST Home Care Visit [facility] [address] [place] [phone] Shakira Hand, HUA [address] [place] [address] 04/19/2025 2:00 AM EST Home Care Visit [facility] [address] [place] [address] Kennedy, Thao L 30 [place] [address] 04/23/2025 2:00 AM EST Home Care Visit [facility] [address] [place] [phone] Kennedy, Thao L 30 [place] [address] 04/24/2025 9:40 AM EST Office Visit [facility] Internal Medicine 40 [place] [address] Antione Segura PA-C 40 [place] [address] [email or web address] 04/25/2025 1:30 AM EST Appointment [facility] [address] [place] [address] Shakira Hand, HUA [address] [place] [address] 06/25/2025 9:30 AM EST Telemedicine [facility] Neurology [address] [place] [address] Jn Cardoza MD 22 [facility], 2nd [place] [address] [email or web address] documented as of this encounter Visit Diagnoses Not on filedocumented in this encounter Additional Health Concerns Assessment Noted Time PHQ-2 Depression Total Score: 0 05/25/20 19 9:02 AM EST documented as of this encounter Care Teams Director Industrial Museum Relationship Specialty Start Date End Date Jennifer Duke, [place] [address] [place] [address] [email or web address] PCP - General Family Medicine 01/31/20 06/22/23 Sirisha Huertas FNP [address] [place] [address] [email or web address] PCP - General Nurse Practitioner 06/23/23 08/03/24 Liyah Patterson MD [address] [place] [address] [email or web address] PCP - General Family Medicine 08/04/24 10/11/24 Antione Segura PA-C [address] [place] [address] [email or web address] PCP - General Physician Maintenance Technician 2Nd Shift 10/12/24 Lang Germain MD [address] [place] [address] [email or web address] Insurance Assigned Provider 09/18/23 02/19/24 Jn Cardoza MD 22 [facility], 2nd [place] [address] [email or web address] Neurology 02/03/24 Denys Henriquez MD [address] [place] [address] [place] [address] Pulmonary Disease 02/03/24 Liyah Patterson MD [address] [place] [address] [email or web address] Insurance Assigned Provider 02/19/24 01/20/25 Rhett Cortez MD [address] [place] [address] [email or web address] Insurance Assigned Provider 01/20/25 documented as of this encounter Additional Source Comments The information contained in this document represents components of the legal health record. It is not the complete legal health record.[facility]
--- OUTSIDE RECORDS SUMMARY | 2025-04-11 20:56 | XMS_ITS | Encounter Summary ---
Author Organization [facility] Address [address] [address] Phone Care Team Providers Care Acquisition Specialist Name Role Phone Jn Cardoza MD Unavailable Denys Henriquez MD Unavailable Liyah Patterson MD Unavailable Antione Segura-C Primary Care Provider Rhett Cortez MD Unavailable Encounter Details Date Type Department Care Team (Late st Contact Info) Description 12/06/2024 Home Health Resumption of Care Planning [facility] 30 [place] [address] Diana Torres, RN [address] [place] [address] [email or web address] Social History Tobacco [...] high school, GED, job training, learning the Luxem[place] language, technical skills, or developing parenting skills)? [...] Visit [facility] [address] [place] [phone] Rich Mariscal [address] [place] [address] [email or web address] 04/12/2025 3:00 PM EDT Home Care Visit [facility] [address] [place] [address] Thao Kennedy [address] [place] [address] 04/16/2025 2:00 PM EST Office Visit [facility] [place] [facility] 40 [place] [address] Antione Segura PA-C 40 [place] [address] 04/16/2025 3:00 PM EST Home Care Visit [facility] [address] [place] [address] Brent Thao L [address] [place] [address] 04/18/2025 1:30 AM EST Home Care Visit [facility] [address] [place] [phone] Shakira Hand RN [address] [place] [address] 04/19/2025 2:00 AM EST Home Care Visit [facility] [address] [place] [phone] Kennedy, Thao L 30 [place] [address] 04/23/2025 2:00 AM EST Home Care Visit [facility] [address] [place] [phone] Kennedy, Thao L [address] [place] [address] 04/24/2025 9:40 AM EST Office Visit [facility] Internal Medicine [address] [place] [address] Antione Segura PA-C [address] [place] [address] 04/25/2025 1:30 AM EST Appointment [facility] [address] [place] [address] Shakira Hand RN [address] [place] [address] 06/25/2025 9:30 AM EST Telemedicine [facility] Neurology [address] [place] [address] Jn Cardoza MD 22 [facility], 2nd [place] [address] [email or web address] documented as of this encounter Visit Diagnoses Not on filedocumented in this encounter Additional Health Concerns Assessment Noted Time PHQ-9 Depression Total Score: 21 025 12:31 PM EDT PHQ-2 Depression Total Score: 6 10/13/19 25 12:31 PM EDT documented as of this encounter Care Teams Acquisition Specialist Relationship Specialty Start Date End Date Antione Segura PA-C [address] [place] [address] [email or web address] PCP - General Physician Food Service Steward 10/12/24 Jn Cardoza MD 22 [facility], 2nd [place] [address] [email or web address] Neurology 02/03/24 Denys Henriquez MD [address] [place] [address] [place] [address] Pulmonary Disease 02/03/24 Liyah Patterson MD 15 [facility] Subhash. [address] [place] [address] [email or web address] Insurance Assigned Provider 02/19/24 01/20/25 Rhett Cortez MD 40 [place] [address] [email or web address] Insurance Assigned Provider 01/20/25 documented as of this encounter Additional Source Comments The information contained in this document represents components of the legal health record. It is not the complete legal health record.[facility]
--- OUTSIDE RECORDS SUMMARY | 2025-04-11 20:56 | XMS_ITS | Encounter Summary ---
Author Organization [facility] Address [address] [place] [address] Phone Care Team Providers Care Content Editor Name Role Phone Jn Cardoza MD Unavailable Denys Henriquez MD Unavailable Antione Segura PA-C Primary Care Provider Rhett Cortez MD Unavailable Encounter Details Date Type Department Care Team (Late st Contact Info) Description 03/13/2025 Orders Only [facility] Internal Medicine [address] [place] [address] Provider, MD Omar [address] [place] [address] Social History Tobacco Use Types Packs/Day [...] high school, GED, job training, learning the Ugandan language, technical skills, or developing parenting skills)? [...] Visit [facility] [address] [place] [phone] Rich Mariscal [address] [place] [address] [email or web address] 04/12/2025 3:00 PM EDT Home Care Visit [facility] [address] [place] [phone] Brent, Thao L [address] [place] [address] [email or web address] 04/16/2025 2:00 PM EST Office Visit [facility] [place] Internal Medicine [address] [place] [address] Antione Segura PA-C 40 [place] [address] [email or web address] 04/16/2025 3:00 PM EST Home Care Visit [facility] [address] [place] [address] Kennedy, Thao L [address] [place] [address] 04/18/2025 1:30 AM EST Home Care Visit [facility] [address] [place] [phone] Shakira Hand, HUA [address] [place] [address] 04/19/2025 2:00 AM EST Home Care Visit [facility] [address] [place] [address] Thao Kennedy 30 [place] [address] 04/23/2025 2:00 AM EST Home Care Visit [facility] [address] [place] [phone] Thao Kennedy 30 [place] [address] 04/24/2025 9:40 AM EST Office [facility] [address] [place] [address] Antione Segura PA-C 40 [place] [address] [email or web address] 04/25/2025 1:30 AM EST Appointment [facility] [address] [place] [phone] Shakira Hand RN [address] [place] [address] 06/25/2025 9:30 AM EST Telemedicine [facility] Neurology [address] [place] [address] Jn Cardoza MD [address] [place] [address] documented as of this encounter Procedures Procedure [...] documented as of this encounter Care Teams Content Editor Relationship Specialty Start Date End Date Antione Segura PA-C 40 [place] [address] PCP - General Physician Home Energy Inspector 10/12/24 Jn Cardoza MD [facility], 2nd [place] [address] Neurology 02/03/24 Denys Henriquez MD [address] [place] [address] [place] [address] Pulmonary Disease 02/03/24 Rhett Cortez MD 40 [place] [address] Insurance Assigned Provider 01/20/25 documented as of this encounter Additional Source Comments The information contained in this document represents components of the legal health record. It is not the complete legal health record.[facility]
--- OUTSIDE RECORDS SUMMARY | 2025-04-11 20:57 | XMS_ITS | Encounter Summary ---
Author Organization [facility] Address [address] [place] [address] Phone Care Team Providers Care Voice Coach Name Role Phone Jn Cardoza MD Unavailable Denys Henriquez MD Unavailable Antione Segura PA-C Primary Care Provider [phone] Rhett Cortez MD Unavailable Reason for Visit * Reason Onset Date Comments TCM Visit 04/11/2025 Encounter Details Date Type Department Care Team (Late st Contact Info) Description 04/11/2025 Refill [facility] [place] Internal Medicine [address] [place], [place] [phone] Elida Lindquist, HUA 40 [place], [place] [phone] [email or web address] TCM Visit Social History Tobacco Use Types Packs/Day Years [...] high school, GED, job training, learning the Croatian language, technical skills, or developing parenting skills)? [...] is your housing situation today? I have marainna sing 01/31/2025 How many times have you [...] encounter Progress Notes * Georgina Krause - 04/11/2025 11:53 AM EDT Records request sent to [facility] * Gwen Jennings CMA - 04/11/2025 11:11 AM EDT Images from the original note were not included. At least one Rx below has no protocol and needs review. Rx Care Gap Status - Instructions for Clinical Staff (prescriber discretion applies): > Mismatch review guide > Check PDMP for all controlled medication requests. Visit Info Last visit: 03/28/2025 Antione Segura PA-C - Internal Medicine [facility] > Requested f/u: Return in about 1 month (around 04/28/2025) for Recheck 40 minutes . Upcoming visit: 04/16/2025 Antione Segura PA-C - Internal Medicine [facility] ACTIONS TAKEN BY Gwen Jennings CMA - Checked PDMP/MassPAT. Opioid Rx Protocol - oxycodone HCl Controlled substance renewals are at prescriber discretion. Pain mgmt profile/toxicology (urine/saliva) may be considered annually or more frequently if indicated. In-person visit in past 2 years: Yes (Last in-person visit: 03/28/2025 (Antione Segura PA-C - [facility])) Visit in past 4 months: Yes No benzodiazepine on medication list Opioid agreement on file: Yes Pain management profile/toxicology in past 12 months: No Rx(s) without protocol Renewal is at prescriber discretion. - prednisone - amoxicillin * Elida Lindquist RN - 04/11/2025 10:52 AM EDT Post Discharge Summary: Post discharge call documentation: Is a post discharge call required?: Yes Please indicate post discharge status: Patient reached - post discharge complete Patient eligible for TCM billing (reached or two unsuccessful attempts within two business days post discharge)?: Yes General: Discharge information: Admit date: 04/08/25 Discharge date: 04/09/25 Discharge from: [facility] Reason for hospitalization: Desaturation, not wearing CPAP at home due to tooth infectoin Discharge disposition: home How is the patient feeling since discharge (pain level and other considerations)?: Improving Safety and self care: Does the patient/caregiver have any safety concerns (falls, transfers, stairs, abuse, etc.)?: No Is the patient/caregiver able to take care of post discharge needs at home (wound care, medication(s), etc)?: Yes Assistive devices/equipment and home services: Was the patient sent home with any assistive devicesor equipment?: Yes Select all that apply: Cane, Walker Are they new devices/equipment?: No Is the patient using the device/equipment?: Yes Was the patient sent home with home services?: Yes Select all that apply: VNA Has the patient/caregiver been contacted by home services?: Yes Comments: she has services prior to admission with [facility], and these are continuing Medication review: Were you able to review the medication list with the patient/caregiver?: Yes Were there any medication changes while the patient was in the hospital (such as anticoagulant dosechanges, insulin, etc)?: Yes What changes?: added amoxicillin at dentist, prednisone 5mg every other day by Dr henriquez Were there any discrepancies during medication review?: No Was the patient/caregiver able to fish bait picker all new prescriptions?: Yes Does the patient need any other medications renewed/refilled?: Yes Comments: needs oxycodone refill Does the patient/caregiver have questions regarding their medications or side effects?: No Follow up/conclusion: Was a follow up appointment scheduled with the patient's PCP office?: Yes Date of next appointment with the PCP: 04/16/25 Spoke to pt about her lab results. States she was admitted at [facility] . States she was admitted for observation for low oxygen saturation. States she had an infected tooth, and she wasn't wearing her CPAP at home, which caused her sats to drop. States she did go to the dentist yesterday, and she is on antibiotics, and they will pull it. She is wearing her CPAP at home now, but it is painful due to her tooth pain and neuralgia. Also mentions she has PFT ordered for 04/20. Needs refill of oxycodone. Med rec complete. documented in this encounter Plan of Treatment Upcoming Encounters Date Type Department Care Team (Late st Contact Info) Description 04/12/2025 1:30 AM EDT [facility] [address] [place] [phone] Rich Mariscal [facility] [place] [address] 04/12/2025 3:00 PM EDT Home Care Visit [facility] [address] [place] [phone] Thao Kennedy [address] [place] [address] 04/16/2025 2:00 PM EST Office Visit [facility] [place] Internal Medicine [address] [place] [address] Antione Segura PA-C 40 [place] [address] 04/16/2025 3:00 PM EST Home Care Visit [facility] [address] [place] [phone] Thao Kennedy [address] [place] [phone] 04/18/2025 1:30 AM EST Home Care Visit [facility] [address] [place] [phone] Shakira Hand RN [address] [place] [address] 04/19/2025 2:00 AM EST Home Care Visit [facility] [address] [place] [phone] Kennedy, Thao L [address] [place] [address] 04/23/2025 2:00 AM EST Home Care Visit [facility] [address] [place] [phone] Kennedy, Thao L [address] [place] [address] 04/24/2025 9:40 AM EST Office Visit [facility] Internal Medicine [address] [place] [address] Antione Segura PA-C 40 [place] [address] [email or web address] 04/25/2025 1:30 AM EST Appointment [facility] [address] [place] [address] Shakira Hand RN [address] [place] [address] 06/25/2025 9:30 AM EST Telemedicine [facility] Neurology [address] [place] [address] Jn Cardoza MD [address] [place] [address], 2nd [place] [address] documented as of this encounter Visit Diagnoses Diagnosis Acute right-sided low back pain without sciatica documented in this encounter Additional Health Concerns Assessment Noted Time PHQ-9 Depression Total Score: 23 025 3:04 PM EDT PHQ-2 Depression Total Score: 5 03/21/20 25 3:04 PM EDT documented as of this encounter Care Teams Voice Coach Relationship Specialty Start Date End Date Antione Segura PA-C 40 [place] [address] PCP - General Physician Geophysical Laboratory Chief 10/12/24 Jn Cardoza MD 22 [facility], 2nd [place] [address] Neurology 02/03/24 Denys Henriquez MD [address] [place] [address] [place] [address] Pulmonary Disease 02/03/24 Rhett Cortez MD [address] [place] [address] Insurance Assigned Provider 01/20/25 documented as of this encounter Additional Source Comments The information contained in this document represents components of the legal health record. It is not the complete legal health record.[facility]
--- OUTSIDE RECORDS SUMMARY | 2025-04-11 20:57 | XMS_ITS | Encounter Summary ---
Author Organization [facility] Address [address] [place] [address] Phone Care Team Providers Care Cafeteria Attendant Name Role Phone Jn Cardoza MD Unavailable Denys Henriquez MD Unavailable Antione Segura PA-C Primary Care Provider [phone] Rhett Cortez MD Unavailable Encounter Details Date Type Department Care Team (Late st Contact Info) Description 04/09/2025 Orders Only [facility] Internal Medicine [address] [place] [address] Provider, MD Omar [address] [place] [address] Social History Tobacco Use Types Packs/Day [...] high school, GED, job training, learning the Nigerian language, technical skills, or developing parenting skills)? [...] Care Visit [facility] [address] [place] [phone] Rich Mariscal [address] [place] [address] [email or web address] 04/12/2025 3:00 PM EDT Home Care Visit [facility] [address] [place] [phone] Brent, Thao L [address] [place] [address] [email or web address] 04/16/2025 2:00 PM EST Office Visit [facility] [place] Internal Medicine [address] [place] [address] Antione Segura PA-C 40 [place] [address] [email or web address] 04/16/2025 3:00 PM EST Home Care Visit [facility] [address] [place] [address] Kennedy, Thao L [address] [place] [address] 04/18/2025 1:30 AM EST Home Care Visit [facility] [address] [place] [phone] Shakira Hand, HUA [address] [place] [address] 04/19/2025 2:00 AM EST Home Care Visit [facility] [address] [place] [address] Thao Kennedy L 30 [place] [address] 04/23/2025 2:00 AM EST Home Care [facility] [address] [place] [phone] Thao Kennedy L 30 [place] [address] 04/24/2025 9:40 AM EST Office Visit [facility] Internal Medicine 40 [place] [address] Antione Segura PA-C 40 [place] [address] 04/25/2025 1:30 AM EST Appointment [facility] [address] [place] [phone] Shakira Hand RN [address] [place] [address] 06/25/2025 9:30 AM EST Telemedicine [facility] Neurology [address] [place] [address] Jn Cardoza MD [address] [place] [address], [address] [place] [address] documented as of this encounter Procedures Procedure Name Priority Date/Time Associated Diagnosis Comments OUTSIDE LAB Routine 04/08/2025 1:09 PM EDT OUTSIDE IMAGING Routine 04/08/2025 7:50 AM EDT documented in this encounter Results * Outside Lab (04/08/2025 1:09 PM EDT) us Historical Provider LAB BLOOD ORDERABLES Mariya [...] as of this encounter Care Teams Cafeteria Attendant Relationship Specialty Start Date End Date Antione Segura PA-C [address] [place] [address] PCP - General Physician Metal Building Assembler 10/12/24 Jn Cardoza MD 22 [facility], 2nd [place] [address] Neurology 02/03/24 Denys Henriquez MD [address] [place] [address] [place] [address] Pulmonary Disease 02/03/24 Rhett Cortez MD 40 [place] [address] Insurance Assigned Provider 01/20/25 documented as of this encounter Additional Source Comments The information contained in this document represents components of the legal health record. It is not the complete legal health record.[facility]
--- OUTSIDE RECORDS SUMMARY | 2025-04-11 20:57 | XMS_ITS | Encounter Summary ---
Author Organization [facility] Address [address] [place] [address] Phone Care Team Providers Care Oil Mixer Name Role Phone Jn Cardoza MD Unavailable Denys Henriquez MD Unavailable Antione Segura PA-C Primary Care Provider Rhett Cortez MD Unavailable Reason for Visit * Reason Onset Date Comments Care Coordination 04/09/2025 Encounter Details Date Type Department Care Team ([facility] st Contact Info) Description 04/09/2025 Telephone [facility] [address] [place] [address] Janay Naidu [address] [place] [address] [email or web address] Care Coordination Social History Tobacco Use Types Packs/Day Years [...] high school, GED, job training, learning the Scottish language, technical skills, or developing parenting skills)? [...] as of this encounter Progress Notes * Janay Naidu - 04/09/2025 9:58 AM EDT Social Work Progress Note - Follow Up Social Work attempted to follow up with Zulma Constantino, a 60 y.o. female today to confirm receipt of resources that were sent via [employer]. These resources included caregiver support group information, resources for private- pay home care services, and options for couples therapy. Social Work has completed supportive outreach via telephone, Zulmalydia Constantino was unavailable and a message was left encouraging a return call. Recommendations and Follow-Up Plan Social Work is available as needed. documented in this encounter Plan of Treatment Upcoming Encounters Date Type Department Care Team (Late st Contact Info) Description 04/12/2025 1:30 AM EDT Home Care Visit [facility] [address] [place] [phone] Megan Mariscalmikal [address] [place] [address] 04/12/2025 3:00 PM EDT Home Care Visit [facility] [address] [place] [phone] Thao Kennedy 30 [place] [address] 04/16/2025 2:00 PM EST Office Visit [facility] [place] Internal Medicine [address] [place] [address] Antione Segura PA-C 40 [place] 04/16/2025 3:00 PM EST Home Care Visit [facility] [address] [place] [phone] Kennedy, Thao L 30 [place] [address] 04/18/2025 1:30 AM EST Home Care Visit [facility] [address] [place] [phone] Shakira Hand RN [address] [place] [address] 04/19/2025 2:00 AM EST Home Care Visit [facility] [address] [place] [phone] Kennedy, Thao L [address] [place] [address] 04/23/2025 2:00 AM EST Home Care Visit [facility] [address] [place] [phone] Kennedy, Thao L [address] [place] [address] 04/24/2025 9:40 AM EST Office Visit [facility] [place] Internal Medicine [address] [place] [address] Antione Segura PA-C 40 [place] [address] 04/25/2025 1:30 AM EST Appointment [facility] [address] [place] [phone] Shakira Hand RN [address] [place] [address] 06/25/2025 9:30 AM EST Telemedicine [facility] [place] [address] Jn Cardoza MD [address] [place] [address] documented as of this encounter Visit Diagnoses Not on filedocumented in this encounter Additional Health Concerns Assessment Noted Time PHQ-9 Depression Total Score: 23 025 3:04 PM EDT PHQ-2 Depression Total Score: 5 03/21/20 25 3:04 PM EDT documented as of this encounter Care Teams Oil Mixer Relationship Specialty Start Date End Date Antione Segura PA-C [address] [place] [address] PCP - General Physician Gravel Weigher 10/12/24 Jn Cardoza MD [address] [place] [address] Neurology 02/03/24 Denys Henriquez MD [address] [place] [address] [place] [address] Pulmonary Disease 02/03/24 Rhett Cortez MD [address] [place] [address] Insurance Assigned Provider 01/20/25 documented as of this encounter Additional Source Comments The information contained in this document represents components of the legal health record. It is not the complete legal health record.[facility]
--- OUTSIDE RECORDS SUMMARY | 2025-04-11 20:57 | XMS_ITS | Encounter Summary ---
Author Organization [facility] Address [address] [place] [address] Phone Care Team Providers Care Microbiology Technician Name Role Phone Jn Cardoza MD Unavailable Denys Henriquez MD Unavailable [phone] Antione SeguraC Primary Care Provider [phone] Rhett Cortez MD Unavailable Reason for Visit * Reason Onset Date Comments Forms & Paperwork 04/10/2025 Encounter Details Date Type Department Care Team (Late st Contact Info) Description 04/10/2025 Telephone [facility] Internal Medicine [address] [place], [place] [phone] Antione Segura PA-C 40 [place] [address] [email or web address] Forms & Paperwork Social History Tobacco Use Types Packs/Day Years [...] high school, GED, job training, learning the Nepalese language, technical skills, or developing parenting skills)? [...] as of this encounter Progress Notes * Antione Segura PA-C - 04/11/2025 7:26 AM EDT Noted will fill out * Gwen Jennings CMA - 04/10/2025 12:47 PM EDT In basket * Georgina Krause - 04/10/2025 11:53 AM EDT Patients came into the office to drop off a dental clearance form. Form has been scanned into patients chart and placed in bin for PCP to complete. Please fax to [phone] once completed. documented in this encounter Plan of Treatment Upcoming Encounters Date Type Department Care Team (Late st Contact Info) Description 04/12/2025 1:30 AM EDT Home Care Visit [facility] [address] [place] [address] Rich Mariscal [address] [place] [address] 04/12/2025 3:00 PM EDT Home Care Visit [facility] [address] [place] [address] Thao Kennedy 30 [place] [address] 04/16/2025 2:00 PM EST Office Visit [facility] Internal Medicine [address] [place] [address] Antione Segura PA-C 40 [place] [address] 04/16/2025 3:00 PM EST Home Care Visit [facility] [address] [place] [phone] Kennedy, Thao L [address] [place] [address] 04/18/2025 1:30 AM EST Home Care Visit [facility] [address] [place] [phone] Shakira Hand, HUA [address] [place] [address] 04/19/2025 2:00 AM EST Home Care Visit [facility] 30 [place] [phone] Kennedy, Thao L 30 [place] [address] 04/23/2025 2:00 AM EST Home Care Visit [facility] [address] [place] [phone] Kennedy, Thao L 30 [place] [address] 04/24/2025 9:40 AM EST Office Visit [facility] Internal Medicine [address] [place] [address] Antione Segura PA-C 40 [place] [address] 04/25/2025 1:30 AM EST Appointment [facility] [address] [place] [phone] Shakira Hand, HUA [address] [place] [address] 06/25/2025 9:30 AM EST Telemedicine [facility] Neurology 22 [place] [address] Jn Cardoza MD [address] [address] documented as of this encounter Visit Diagnoses Not on filedocumented in this encounter Additional Health Concerns Assessment Noted Time PHQ-9 Depression Total Score: 23 025 3:04 PM EDT PHQ-2 Depression Total Score: 5 03/21/20 25 3:04 PM EDT documented as of this encounter Care Teams Microbiology Technician Relationship Specialty Start Date End Date Antione Segura PA-C [address] [place] [address] PCP - General Physician Lead Instructor/Flight Attendant 10/12/24 Jn Cardoza MD [address] [place] [address] Neurology 02/03/24 Denys Henriquez MD [address] [place] [address] [place] [address] Pulmonary Disease 02/03/24 Rhett Cortez MD [address] [place] [address] [email or web address] Insurance Assigned Provider 01/20/25 documented as of this encounter Additional Source Comments The information contained in this document represents components of the legal health record. It is not the complete legal health record.[facility]
--- OUTSIDE RECORDS SUMMARY | 2025-04-11 20:57 | XMS_ITS | Encounter Summary ---
Author Organization [facility] Address [address] [place] [phone] Phone Care Team Providers Care Keg Header Name Role Phone Jn Cardoza MD Unavailable Denys Henriquez MD Unavailable [phone] Antione SeguraC Primary Care Provider [phone] Rhett Cortez MD Unavailable Reason for Visit * Reason Onset Date Comments TCM Visit 04/10/2025 Needs appt Encounter Details Date Type Department Care Team (Late st Contact Info) Description 04/10/2025 Telephone [facility] Internal Medicine [address] [place], [place] [phone] Antione Segura PA-C [address] [place] [place], [place] [phone] [email or web address] TCM Visit (Needs appt ) Social History Tobacco Use Types Packs/Day [...] Progress Notes * Georgina Krause - 04/11/2025 11:41 AM EDT Patient scheduled 04/16 * Ruba Louie - 04/11/2025 10:55 AM EDT Error. * Georgina Krause - 04/11/2025 10:41 AM EDT LVM for patient to call the office and schedule * Astrid Velazquez - 04/11/2025 10:17 AM EDT Pt called back to schedule TCM, please contact * Georgina Krause - 04/10/2025 2:22 PM EDT LVM for patient to call the office and schedule a TCM visit. * Vanesa Macias - 04/10/2025 1:59 PM EDT [facility] PEN Top Smart Phrases: Transitional Care Management New Patient: YES/NO: no [facility]ization [facility] Discharge Date:04/09/2025 Reason for Visit+ Diagnosis: pt was keep over night for O2 being at 77% Is the discharge summary in patient chart:YES/NO: no If not did you inform the patient/patient advocate to fax it to the office: YES/NO: no Please inform the patient/patient advocate to fax and bring a copy to the appt. Appointment Date: No appt till 05/07/2025 please review and advise pt is she can be seen sooner Is the appt: Awareness: Appt need to be schedule with in 2 to 14 calendar days from discharge date Additional Note (if applicable): [facility] Call Center CSS Agent (Please do not reply to this user, as this inbox is not monitored. Thank you.) Thank you. documented in this encounter Plan of Treatment Upcoming Encounters Date Type Department Care Team (Late st Contact Info) Description 04/12/2025 1:30 AM EDT Home Care Visit [facility] [address] [place] [phone] Davey Rich [address] [place] [phone] 04/12/2025 3:00 PM EDT Home Care Visit [facility] [address] [place] [address] Thao Kennedy [address] [place] [address] 04/16/2025 2:00 PM EST Office Visit [facility] Internal Medicine [address] [place] [address] Antione Segura PA-C [address] [place] [address] 04/16/2025 3:00 PM EST Home Care Visit [facility] [address] [place] [phone] Kennedy, Thao L [address] [place] [phone] 04/18/2025 1:30 AM EST Home Care Visit [facility] [address] [place] [phone] Shakira Hand RN [address] [place] [address] 04/19/2025 2:00 AM EST Home Care Visit [facility] [address] [place] [phone] Kennedy, Thao L [address] [place] [phone] 04/23/2025 2:00 AM EST Home Care Visit [facility] [address] [place] [address] Kennedy, Thao L [address] [place] [phone] 04/24/2025 9:40 AM EST Office Visit [facility] Internal Medicine [address] [place] [address] Antione Segura PA-C [address] [place] [address] 04/25/2025 1:30 AM EST Appointment [facility] [address] [place] [phone] Shakira Hand RN [address] [place] [address] 06/25/2025 9:30 AM EST Telemedicine [facility] Neurology [address] [place] [phone] Jn Cardoza MD [address] [place] [phone] [email or web address] documented as of this encounter Visit Diagnoses Not on filedocumented in this encounter Additional Health Concerns Assessment Noted Time PHQ-9 Depression Total Score: 23 025 3:04 PM EDT PHQ-2 Depression Total Score: 5 03/21/20 25 3:04 PM EDT documented as of this encounter Care Teams Keg Header Relationship Specialty Start Date End Date Antione Segura PA-C [address] [place] [address] PCP - General Physician Route Salesman [employer] Driver 10/12/24 Jn Cardoza MD [address] [place] [address], [address] [place] [address] Neurology 02/03/24 Denys Henriquez MD [address] [place] [address] [place] [address] Pulmonary Disease 02/03/24 Rhett Cortez MD [address] [place] [address] Insurance Assigned Provider 01/20/25 documented as of this encounter Additional Source Comments The information contained in this document represents components of the legal health record. It is not the complete legal health record.[facility]
--- NOTE | 2025-04-11 21:06 | ECG_ITS ---
Test Reason : SOB Blood Pressure : */* mmHG Vent. Rate : 80 BPM Atrial Rate : 80 BPM P-R Int : 138 ms QRS Dur : 92 ms QT Int : 370 ms P-R-T Axes : 56 60 45 degrees QTcB Int : 426 ms Normal sinus rhythm Normal ECG When compared with ECG of 08-Apr-2025 02:17, No significant change was found Referred By: Juli Aleman Electronically Signed By: ANGEL HARRISON
--- NOTE | 2025-04-11 21:13 | ED_ITS ---
HPI - SOB/Dyspnea General Chief Complaint: Dyspnea Stated Complaint: SOB X 1 HR Time Seen by Provider: 04/11/25 21:02 Source: patient, family and EMS Mode of arrival: EMS Limitations: no limitations History of Present Illness ED Provider: Dr. Juli Aleman HPI Narrative: Patient comes to the emergency room complaining of shortness of breath. Patient was discharged from the hospital 2 days ago for a COPD exacerbation. Also, patient was being treated with oral amoxicillin for a tooth infection. Patient states that today, she tried giving herself multiple nebulization treatments without any relief. Patient was using her usual 2 L of oxygen at home, her oxygen was a proximally 82%. Patient called her at work who called EMS. EN route to the hospital, EMS gave the patient Solu-Medrol, DuoNebs and albuterol. Related Data Home Medications ?Medication ?Instructions ?Recorded ?Confirmed atorvastatin 80 mg tablet 80 mg PO DAILY@199903/04/23 04/08/25 swynnlwmhr-miqayjeosvldg-mlrozubn 1 tab PO DAILY MRX1 PRN Migraine 03/04/23 04/08/25 50 mg-325 mg-40 mg tablet Headache duloxetine 60 mg capsule,delayed 60 mg PO BID@0600,200 0 03/04/23 04/08/25 release gabapentin 300 mg capsule 1,200 mg PO TID@0600,1200,20 00 03/04/23 04/08/25 hyoscyamine sulfate 0.125 mg tablet 0.25 mg PO Q6H PRN Abdominal 03/04/23 04/08/25 Discomfort Oxygen Home Use 04/16/23 02/26/25 prazosin 2 mg capsule 2 mg PO DAILY@199904/16/23 04/08/25 albuterol sulfate 90 mcg/actuation 2 puff inhalation Q 4H PRN 01/31/24 04/08/25 aerosol inhaler Shortness Of Breath Or Wheez ing aspirin 81 mg tablet,delayed 81 mg PO DAILY@05/2204/08/25 release calcium 600 mg (as 1 tab PO DAILY@199906/20/24 04/08/25 carbonate)-vitamin D3 5 mcg (200 unit) tablet baclofen 20 mg tablet 20 mg PO TID@0600,1200,199910/29/24 04/08/25 aripiprazole 5 mg tablet (Abilify) 5 mg PO DAILY@0600 12/01/24 04/08/25 oxcarbazepine 300 mg tablet 300 mg PO BID@599,199904/08/25 lorazepam 0.5 mg tablet 0.5 mg PO BEDTIME@1999 MODER ATE 01/04/25 04/08/25 Anxiety polyethylene glycol 3350 17 17 g PO DAILY PRN Constipa tion 01/04/25 04/08/25 gram/dose oral powder (Miralax) budesonide 160 mcg-glycopyr 9 2 inh inhalation BID@060 0,1800 02/05/25 04/08/25 mcg-formot 4.8 mcg/actuation HFA inhaler (Breztri Aerosphere) lorazepam 0.5 mg tablet 0.5 mg PO DAILY PRN Anxiety 02/05/25 04/08/25 roflumilast 500 mcg tablet 500 mcg PO DAILY@0600 02/0504/08/25 (Daliresp) valsartan 40 mg tablet 40 mg PO DAILY@0600 02/05/25 04/08/25 verapamil 120 mg tablet 120 mg PO BID@06,01/1304/08/25 omeprazole 20 mg capsule,delayed 20 mg PO DAILY@0600 0 03/01/25 04/08/25 release prednisone 5 mg tablet 5 mg PO Q48H 03/01/25 acetaminophen 650 mg 1,300 mg PO Q8H PRN Pain 04/08/25 tablet,extended release magnesium oxide 400 mg PO DAILY 03/13/25 melatonin 3 mg tablet 3 mg PO BEDTIME PRN Insomnia 04/08/25 04/08/25 oxycodone 5 mg tablet 5 mg PO Q6H PRN Severe Pain (Scale 04/08/25 04/08/25 Score 7-10) Previous Rx's ?Medication ?Instructions ?Recorded nebulizer and compressor #1 ea 12/16/23 ipratropium 0.5 mg-albuterol 3 mg 3 ml inhalation Q4H PRN for 03/02/24 (2.5 mg base)/3 mL nebulization dyspnea #180 mL soln Allergies Allergy/AdvReac Type Severity Reaction Status Date / Time Iodinated Contrast Media (IV Allergy Intermediate HIVES Verified 10/29/25 20:28 CONTRAST) latex (LATEX) Allergy Unknown RASH Verified 04/11/25 20:28 adhesive tape Allergy Rash Verified 04/11/25 20:28 morphine (MORPHINE) AdvReac Unknown VOMITING Verified 04/11/25 20:28 Review of Systems 2 Review of Systems: Constitutional : No Weight loss, No Fever, No Chills, No Night Sweats, No Fatigue, No Malaise ENT/Mouth : No Hearing loss, No Ear Pain, No Nasal Congestion, No Sinus Pain, No Hoarseness, No sore throat, No Rhinorrhea, No Swallowing Difficulty Eyes: No Eye Pain, No Swelling, No Redness, No Foreign Body, No Discharge, No Vision Changes Cardiovascular : No Chest Pain, No SOB, No Dyspnea on Exertion, No Orthopnea, No Edema, No Palpitations Respiratory : No Cough, No Sputum, No Wheezing, No Smoke Exposure, No Dyspnea Gastrointestinal : No Nausea, No Vomiting, No Diarrhea, No Constipation, No abdominal Pain, No Hematochezia, No Melena Genitourinary : no irregular bleeding, No Dysuria, No Urinary Frequency, No Hematuria, No Urinary Incontinence, No Urgency, No Flank Pain, No Urinary Flow Changes, No Hesitancy Musculoskeletal : No joint pain, No Myalgias, No Joint Swelling Skin : No Skin Lesions, No rash Neuro : No Weakness, No Numbness, No Paresthesias, No Loss of Consciousness, No Dizziness, No Headache Psych : No Anxiety/Panic, No Depression, No SI/HI/AH/VH, No Social Issues, Heme/Lymph: No Bruising, No Bleeding,No Lymphadenopathy Endocrine : No Polyuria, No Polydipsia, No Temperature Intolerance [facility] Past Medical History Medical History Chronic lung disease Morbid obesity Pulmonary nodules Diastolic heart failure Chronic lung disease Hypoxia Panic disorder Hypertension Chronic hypercapnic respiratory failure Aortic stenosis Asthma Hypogammaglobulinemia Smoker JUANITO (obstructive sleep apnea) Elevated troponin COPD (chronic obstructive pulmonary disease) Trigeminal neuralgia Mixed hyperlipidemia Peripheral neuropathy Tobacco use disorder Mood disorder Surgical History History of esophagogastroduodenoscopy (EGD) History of colonoscopy History of lumbar discectomy History of tubal ligation History of excision of mass History of shoulder surgery Social History Social History Household Members: None Household Members Other:: dog Housing: Condominium Do you presently have visiting nurse or other home services: Yes Alcohol intake: current Alcohol intake frequency: holidays/special occasions only Alcohol type: hard liquor Comment: pt refusing bed alarm Patient Tobacco Use Status: Former Tobacco user Tobacco use type: Cigarette Cigarette Packs Per Day: 4 Cigarettes Per Day: 80.0 Years Smoked: 40 Smoked in Last 30 Days: No e-Cigarette/Vaping Use: Never Used Second Hand Smoke Exposure: No Use of substances other than those prescribed or required for medical reasons: No Substance Use Type: Marijuana Advance Directives: Yes Advance Directives on File: Yes Advance Directives Date on File: 03/09/23 Do you have a plan to hurt others: No Plan Patient : No service: No Physical Exam 2 Exam: Exam: Appearance: Alert. Oriented X3. No acute distress. Eyes: Pupils equal, round and reactive to light. ENT: Pharynx normal. Neck: Normal inspection. Neck supple. No lymph nodes noted. No crepitus CVS: Normal heart rate and rhythm. Pulses normal. Normal S1 and S2 Respiratory: No respiratory distress. Seems a bit short of breath, mild bilateral wheezing Abdomen: Soft and nontender. No rigidity. No distention. Skin: Skin warm and dry. Normal skin color. Normal skin turgor. Extremities: No lower extremity edema. No Lacerations. No Rash Neuro: Oriented X 3. No motor deficit. No sensory deficit. Moving all extremities. No slurred speech. CN 2 through 12 grossly intact Psych: calm, cooperative, normal affect Vital Signs: Vital Signs: Last Vital Signs Temp 98.1 F 04/11/25 23:06 Pulse 82 04/11/25 23:06 Resp 23 H 04/11/25 23:06 BP 138/58 L 04/11/25 23:06 Pulse Ox 93 04/11/25 23:06 O2 Del Method Nasal Cannula 04/11/25 23:06 O2 Flow Rate 2 04/11/25 23:06 Oxygen Flow Rate 2 04/11/25 20:25 BMI result Body Mass Index 33.7 Course Course Course Narrative: Patient was recently discharged from the hospital, 2 days ago for acute on chronic lung disease. Patient presents again to the hospital with the same complaint. Patient already received Solu-Medrol, DuoNebs and albuterol. Patient is still a bit tight, she will be receiving magnesium and more breathing treatments as needed Patient reports that when she got home, she almost fell 3 times. Patient states that she was very weak. Medications Administered Discontinued Medications Generic Name Dose Route Start Last Admin Trade Name Jasonq PRN Reason Stop Dose Admin Albuterol Sulfate 2.5 mg/ 0 mg 04/11/25 21:29 04/11/25 21:31 Albuterol/Ipratropium 3 ml INHALE 04/11/25 21:30 1 dose ONCE ONE Administration Magnesium Sulfate 2 gm in 50 mls @ 150 mls/hr 04/11/25 21:14 04/11/25 22:47 Magnesium Sulfate/H2o IV 04/11/25 21:33 Infused ONCE ONE Infusion Ceftriaxone Sodium 1 gm/ 50 mls @ 100 mls/hr 04/11/25 22:15 04/12/25 00:24 Sodium Chloride IV 04/11/25 22:44 Infused ONCE ONE Infusion Azithromycin 500 mg/ Sodium 250 mls @ 125 mls/hr 04/11/25 22:15 04/12/25 00:24 Chloride IV 04/12/25 00:14 125 mls/hr ONCE ONE Administration Sodium Chloride 1,000 mls @ 999 mls/hr 04/11/25 22:15 04/11/25 23:11 Ns IVCONT 04/11/25 23:15 999 mls/hr .Q1H1M ONE Administration Medical Decision Making Medical Decision Making [facility] Narrative: My interpretation of EKG: Normal sinus rhythm, heart rate 80, no ST segment depression or elevation, no T-wave inversion, QTC 426 My interpretation of labs: Patient's hematology and chemistry at baseline Venous blood gases show a pH of 7.39, pCO2 60, bicarb 37. Patient refusing to use CPAP at this time which she usually uses at bedtime due to a tooth infection. Urinalysis negative for UTI Serology negative for influenza COVID Chest x-ray did not show any acute abnormality. We attempted ambulating the patient to the bathroom. Patient could not walk all the way there, stated that she was feeling too short of breath, lightheaded. Patient needed assistance to return to bed. I discussed the above-mentioned with our hospitalist Dr. Bolton, patient being admitted. Differential Diagnosis Differential Diagnoses: The differential diagnosis associated with the presentation includes (Chronic lung disease, UTI, decompensation) Admission/Observation Consideration of admission/observation: Escalation of care including admission/observation considered Consult Healthcare Provider Management of the patient was discussed with: Hospitalist Lab Data MDM Lab Attestation statement: I reviewed the patient's lab results. 04/11/25 21:49 04/11/25 21:49 Labs: Lab Results 04/11/25 04/11/25 04/11/25 Range/Units 21:49 21:53 23:47 WBC 10.5 (4.8-10.8) X10*3/uL RBC 3.72 L (4.20-5.50) X10*6/uL Hgb 11.3 L (12.0-16.0) g/dl Hct 36.5 L (37.0-47.0) % MCV 98.1 H (80.0-98.0) fL MCH 30.4 (27.0-33.0) pg MCHC 31.0 (31.0-35.0) g/dl RDW 14.8 (11.0-16.0) % Plt Count 349 (160-400) X10*3/uL MPV 9.2 L (9.4-12.3) fL Immature Gran % (Auto) 0.3 (0.0-0.4) % Neut % (Auto) 86.0 H (45-73) % Lymph % (Auto) 7.8 L (20-40) % Carver % (Auto) 4.8 (2-11) % Eos % (Auto) 0.8 (0-4) % Baso % (Auto) 0.3 (0-2) % Lymph # (Auto) 0.8 L (1.2-4.9) X10*3/uL Carver # (Auto) 0.5 (0.1-1.2) X10*3/uL Eos # (Auto) 0.1 (0.0-0.4) X10*3/uL Baso # (Auto) 0.0 (0.0-0.2) X10*3/uL Abs Immat Gran (auto) 0.03 (0.00-0.03) X10*3/uL Absolute Neuts (auto) 9.1 H (2.0-8.3) x10*3/uL Absolute Nucleated RBC 0.000 (0.0-0.012) X10*3/uL Nucleated RBC % (auto) 0.0 (0.0-0.2) /100WBC VBG pH 7.39 (7.32-7.43) VBG pCO2 60 mmHg VBG pO2 92 mmHg VBG HCO3 37 H (22-26) mmol/L VBG O2 Saturation 100.0 % VBG Base Excess 10.4 mmol/L Sodium 143 (135-145) mmol/L Potassium 4.0 (3.3-5.1) mmol/L Chloride 104 (96-108) mmol/L Carbon Dioxide 31 H (22-29) mmol/L Anion Gap 12 (12-20) BUN 13 (9-16) mg/dL Creatinine 0.68 (0.5-1.4) mg/dL Estim Creat Clear Calc 99.5 Estimated GFR > 60 Random Glucose 138 H (60-115) mg/dL Lactic Acid 1.4 (0.5-2.0) mmol/L Calcium 9.5 (8.4-10.2) mg/dL Total Bilirubin 0.1 (0.0-1.0) mg/dL Direct Bilirubin < 0.2 (0.0-0.5) mg/dL AST 25 (5-31) U/L ALT 20 (0-31) U/L Alkaline Phosphatase 69 (39-117) U/L Troponin I High Sens 9.6 (<3.5-17.0) ng/L Total Protein 7.2 (6.5-8.0) g/dL Albumin 4.1 (3.5-5.0) g/dL Urine Color Yellow Urine Appearance Clear Urine pH 5.5 (5.0-9.0) Ur Specific [place] 1.015 (1.005-1.025) Urine Protein Negative (Neg-Trace) mg/dL Urine Glucose (UA) Negative (Negative) mg/dL Urine Ketones Negative (Negative) mg/dL Urine Blood Negative (Negative) Urine Nitrite Negative (Negative) Ur Leukocyte Esterase Negative (Negative) Influenza Type A (PCR) NEGATIVE (Negative) Influenza Type B (PCR) NEGATIVE (Negative) RSV RNA Qual (PCR) NEGATIVE (Negative) SARS-CoV-2 RNA (RT-PCR) NEGATIVE (Negative) Independent Interpretation I performed an independent interpretation of an: EKG and Plain X-Ray Radiology Impression Discussion of test interpretation with radiology: I have reviewed the radiologist's reading. Radiologist Impression: Heart size is normal. No consolidation, significant pleural effusion or pneumothorax. No acute fracture. Critical Care Time Critical Care Time Critical Care Time: Yes Total Critical Care Time: 60 Attestation: I have personally provided critical care time. Time includes review of lab data, radiology results, discussion with consultants, and monitoring for potential decompensation. Intervention performed as documented. Discharge Plan Discharge Clinical Impression: Acute on chronic respiratory failure with hypoxia and hypercapnia Patient Disposition: Admitted As Inpatient Print Language: Faroese
[2025-04-11 21:30] VITALS: PULSE 100; RESP 22
[2025-04-11] MEDS: Albuterol Sulfate 2.5 MG, Albuterol/Iprat 2.5/0.5MG 3 ML 3 ML INHALE (21:31)
[2025-04-11] MEDS: Magnesium Sulfate/H2O 2 GM/50 ML PIGGYBACK IV (21:55)
[2025-04-11 21:57] LABS: VBG HCO3 37 mmol/L (22-26); VBG O2 % Saturation 100.0 %
[2025-04-11 21:57] LABS: MANUAL DIFF FLAG NO
[2025-04-11 21:58] LABS: Hematocrit 36.5 % (37.0-47.0); Hemoglobin 11.3 g/dl (12.0-16.0); Imm Gran Abs Auto 0.03 X10*3/uL (0.00-0.03); Imm Gran Pct Auto 0.3 % (0.0-0.4); Lymphocytes Absolute Auto 0.8 X10*3/uL (1.2-4.9); Mean Corpuscular HGB Conc 31.0 g/dl (31.0-35.0); Mean Corpuscular Hemoglobin 30.4 pg (27.0-33.0); Mean Corpuscular Volume 98.1 fL (80.0-98.0); NRBC Abs Auto 0.000 X10*3/uL (0.0-0.012); NRBC Pct Auto 0.0 /100WBC (0.0-0.2); Platelet Count 349 X10*3/uL (160-400); Red Blood Count 3.72 X10*6/uL (4.20-5.50); White Blood Count 10.5 X10*3/uL (4.8-10.8)
[2025-04-11 21:59] LABS: Venous Blood Gas Refer to POC result
[2025-04-11 22:12] LABS: Alanine Aminotransferase 20 U/L (0-31); Albumin Level 4.1 g/dL (3.5-5.0); Alkaline Phosphatase 69 U/L (39-117); Anion Gap 12 (12-20); Aspartate Amino Transferase 25 U/L (5-31); Blood Urea Nitrogen 13 mg/dL (9-16); Calcium 9.5 mg/dL (8.4-10.2); Carbon Dioxide 31 mmol/L (22-29); Chloride 104 mmol/L (96-108); Creatinine Clr Calc Pharmacy 99.5; Estimated Glomerular Filt Rate > 60; Potassium 4.0 mmol/L (3.3-5.1); Sodium 143 mmol/L (135-145); Total Protein 7.2 g/dL (6.5-8.0)
[2025-04-11 22:18] LABS: Troponin-I High Sensitivity 9.6 ng/L (<3.5-17.0)
[2025-04-11 22:34] LABS: Resp Syncy Virus RNA Qual PCR NEGATIVE (Negative); SARS COV2 PCR INHOUSE NEGATIVE (Negative)
[2025-04-11 23:06] VITALS: BP 138/58; PULSE 82; RESP 23; TEMP 36.7; O2SAT 93
--- NOTE | 2025-04-11 23:17 | PC.NURSE ---
This RN assumed pt care @ 3780. Meds due @ 3003 administered Pt a&ox4, no signs of distress. Pt reporting 8/ tooth pain Pt medicated per mar Plan of care ongoing.
[2025-04-11 23:54] LABS: Appearance Urine Clear; Glucose Urine UA Negative (Negative); PH 5.5 (5.0-9.0); Specific Gravity - Urine 1.015 (1.005-1.025)
[2025-04-12] VITALS (8 sets, daily range): BP systolic 142–182; BP diastolic 53–78; PULSE 71–92; RESP 16–26; TEMP 36.3–36.7; O2SAT 94–98; BMI 33.8
--- NOTE | 2025-04-12 01:12 | PM.IMHP ---
History of Present Illness Date of Service: 04/12/25 Attending physician on admission: Desiree Peoples Chief Complaint: Dyspnea Pt is a 59 year old female with past medical history COPD on home oxygen, trigeminal and occipital neuralgia, hyperlipidemia, JUANITO not on CPAP, CVA, nephrolithiasis, moderate aortic stenosis, obesity, chronic pain on oxycodone, hypertension with multiple hospitalizations related to COPD exacerbations in the past discharged 2 days ago from the hospital for COPD exacerbation secondary to inability to use CPAP for JUANITO due to to infected teeth. Earlier today patient noted that she was feeling more short of breath and could not maintain a sat above 82% at home on oxygen. Patient's was notified by phone and called 911. Patient denied any near syncopal or syncopal events. Patient in general though reports that she is weaker and at times feels like she will fall. Patient was not having any chest pain and currently denies any chest pain, shortness of breath at rest, abdominal pain, nausea or vomiting. Patient denies any fever or chills. Patient was seen by a dentist this past Wednesday and was started again on amoxicillin and now knows that she has two problematic teeth that need to be extracted most likely. Patient also has an outpatient follow-up appointment with her refrigeration operator in 1 month. Previously patient was seen by Pulmonary and was instructed to increase her oxygen from 1-2 L while on CPAP at night and in addition recommended highly rehabilitation either inpatient or outpatient pulmonary rehab. It does not appear patient has a initiated this so far. Patient did continue smoking cessation since last year. Chest x-ray currently negative for any acute findings. VBG pH 7.39, CO2 60, PO2 92 and bicarb 37. Patient has no leukocytosis and H&H are 11.3 and 36.5. UA negative for UTI. Patient currently on nasal cannula satting anywhere from 91-92% with no evidence of respiratory distress. COVID, RSV and flu are all negative. Patient did receive ceftriaxone and azithromycin in the ED. Review of Systems Review of Systems: Patient denies any chest pain, current shortness of breath at rest, abdominal pain, nausea, vomiting, constipation or diarrhea. Patient is reporting mild dental discomfort but denies actual pain and is more concerned about her trigeminal neuralgia and getting the meds that she would normally take before going to bed. Patient denies any fever or chills. Patient denies any ability with chewing food or loss of appetite. Yes all other systems are reviewed and are negative [facility] Medical History Chronic lung disease Morbid obesity Pulmonary nodules Diastolic heart failure Chronic lung disease Hypoxia Panic disorder Hypertension Chronic hypercapnic respiratory failure Aortic stenosis Asthma Hypogammaglobulinemia Smoker JUANITO (obstructive sleep apnea) Elevated troponin COPD (chronic obstructive pulmonary disease) Trigeminal neuralgia Mixed hyperlipidemia Peripheral neuropathy Tobacco use disorder Mood disorder Cognitive capacity: Alert and orientated x3 Functional capacity: independent ambulation Surgical History History of esophagogastroduodenoscopy (EGD) History of colonoscopy History of lumbar discectomy History of tubal ligation History of excision of mass History of shoulder surgery Social History Household Members: None Household Members Other:: dog [facility]: [facility] Do you presently have visiting nurse or other home services: Yes Alcohol intake: current Alcohol intake frequency: holidays/special occasions only Alcohol type: hard liquor Comment: pt refusing bed alarm Patient Tobacco Use Status: Former Tobacco user Tobacco use type: Cigarette Cigarette Packs Per Day: 4 Cigarettes Per Day: 80.0 Years Smoked: 40 Smoked in Last 30 Days: No e-Cigarette/Vaping Use: Never Used Second Hand Smoke Exposure: No Use of substances other than those prescribed or required for medical reasons: No Substance Use Type: Marijuana Advance Directives: Yes Advance Directives on File: Yes Advance Directives Date on File: 03/09/23 Do you have a plan to hurt others: No Plan Patient : No service: No Ebola Risk: Travel/Contact With Anyone From Affected Area/s: No Has Patient Experienced Ebola Symptoms: No Meds Allergies Allergy/AdvReac Type Severity Reaction Status Date / Time Iodinated Contrast Media (IV Allergy Intermediate HIVES Verified 04/11/25 20:28 CONTRAST) latex (LATEX) Allergy Unknown RASH Verified 04/11/25 20:28 adhesive tape Allergy Rash Verified 04/11/25 20:28 morphine (MORPHINE) AdvReac Unknown VOMITING Verified 04/11/25 20:28 Home Medications ?Medication ?Instructions ?Recorded ?Confirmed ?Last Taken ?Type atorvastatin 80 mg tablet 80 mg PO DAILY@199903/04/23 04/08/25 04/07/25 History ebbisjsjwm-oummphfqrqbxe-ykmbqszd 1 tab PO DAILY MRX1 PRN Migraine 03/04/23 04/08/25 04/07/25 History 50 mg-325 mg-40 mg tablet Headache duloxetine 60 mg capsule,delayed 60 mg PO BID@0600,199903/04/23 04/08/25 04/07/25 History release gabapentin 300 mg capsule 1,200 mg PO TID@0600,1200,199903/04/23 04/08/25 04/07/25 History hyoscyamine sulfate 0.125 mg tablet 0.25 mg PO Q6H PRN Abdominal 03/04/23 04/08/25 04/07/25 History Discomfort Oxygen Home Use 04/16/23 02/26/25 10/28/24 History prazosin 2 mg capsule 2 mg PO DAILY@199904/16/23 04/08/25 04/07/25 History albuterol sulfate 90 mcg/actuation 2 puff inhalation Q4H PRN 01/31/24 04/08/25 04/07/25 History aerosol inhaler Shortness Of Breath Or Wheezing aspirin 81 mg tablet,delayed 81 mg PO DAILY@199905/22/24 04/08/25 04/07/25 History release calcium 600 mg (as 1 tab PO DAILY@199906/20/24 04/08/25 04/07/25 History carbonate)-vitamin D3 5 mcg (200 unit) tablet baclofen 20 mg tablet 20 mg PO TID@0600,1200,199910/29/24 04/08/25 04/07/25 History aripiprazole 5 mg tablet (Abilify) 5 mg PO DAILY@0600 12/01/24 04/08/25 04/07/25 History oxcarbazepine 300 mg tablet 300 mg PO BID@06,199912/21/24 04/08/25 04/07/25 History lorazepam 0.5 mg tablet 0.5 mg PO BEDTIME@1999 MODERATE 01/04/25 04/08/25 04/07/25 History Anxiety polyethylene glycol 3350 17 17 g PO DAILY PRN Constipation 01/04/25 04/08/25 04/07/25 History gram/dose oral powder (Miralax) budesonide 160 mcg-glycopyr 9 2 inh inhalation BID@0600,1800 02/05/25 04/08/25 04/07/25 History mcg-formot 4.8 mcg/actuation HFA inhaler (Breztri Aerosphere) lorazepam 0.5 mg tablet 0.5 mg PO DAILY PRN Anxiety 02/05/25 04/08/25 04/07/25 History roflumilast 500 mcg tablet 500 mcg PO DAILY@0600 02/05/25 04/08/25 04/07/25 History (Daliresp) valsartan 40 mg tablet 40 mg PO DAILY@0600 02/05/25 04/08/25 04/07/25 History verapamil 120 mg tablet 120 mg PO BID@0600,199902/05/25 04/08/25 04/07/25 History omeprazole 20 mg capsule,delayed 20 mg PO DAILY@0600 03/01/25 04/08/25 04/07/25 History release prednisone 5 mg tablet 5 mg PO Q48H 03/01/25 04/08/25 04/06/25 History acetaminophen 650 mg 1,300 mg PO Q8H PRN Pain 03/13/25 04/08/25 04/07/25 History tablet,extended release magnesium oxide 400 mg PO DAILY 03/13/25 04/08/25 04/07/25 History melatonin 3 mg tablet 3 mg PO BEDTIME PRN Insomnia 04/08/25 04/08/25 Unknown History oxycodone 5 mg tablet 5 mg PO Q6H PRN Severe Pain (Scale 04/08/25 04/08/25 04/07/25 History Score 7-10) Physical Exam Vital Signs and Narrative: Vital Signs: Last Vital Signs Temp 98.1 F 04/11/25 23:06 Pulse 82 04/11/25 23:06 Resp 23 H 04/11/25 23:06 BP 138/58 L 04/11/25 23:06 Pulse Ox 93 04/11/25 23:06 O2 Del Method Nasal Cannula 04/11/25 23:06 O2 Flow Rate 2 04/11/25 23:06 Oxygen Flow Rate 2 04/11/25 20:25 BMI result Body Mass Index 33.7 Alert and orientated X3, able to give good history. Neuro: CN II-X11 intact, no deficits, visual acuity intact EYES: PERRLA, EOM intact, sclerae nonicteric ENT: hearing intact, no issues with swallowing, uvula midline, lips moist, nares patent no epistaxis, generalized facial swelling with no suborbital edema or obvious abscess in upper or lower gums Cardiac: S1 S2 RRR, no murmur, no JVD, no edema in Lower ext Pulmonary: lungs diminished bilaterally no wheezes or rhonchi heard Abdominal: BS active in all 4 quadrants, no guarding, tenderness, rebounding MSK: strength 3-5/5 upper and lower extremities : no CVA tenderness no bladder distension Extremities: no edema in lower extremities, PT and DP pulses palpable +2 Psych: mood stable, judgement and insight good Results Labs 04/11/25 21:49 04/11/25 21:49 Labs: Laboratory Results - last 24 hr 04/11/25 04/11/25 04/11/25 21:49 21:53 23:47 MCV 98.1 H MCH 30.4 MCHC 31.0 RDW 14.8 Plt Count 349 MPV 9.2 L Immature Gran % (Auto) 0.3 Neut % (Auto) 86.0 H Lymph % (Auto) 7.8 L Laporte % (Auto) 4.8 Eos % (Auto) 0.8 Baso % (Auto) 0.3 Lymph # (Auto) 0.8 L [place] # (Auto) 0.5 Eos # (Auto) 0.1 Baso # (Auto) 0.0 Abs Immat Gran (auto) 0.03 Absolute Neuts (auto) 9.1 H Absolute Nucleated RBC 0.000 Nucleated RBC % (auto) 0.0 VBG pH 7.39 VBG pCO2 60 VBG pO2 92 VBG HCO3 37 H VBG O2 Saturation 100.0 VBG Base Excess 10.4 Anion Gap 12 Estim Creat Clear Calc 99.5 Estimated GFR > 60 Random Glucose 138 H Lactic Acid 1.4 Calcium 9.5 Total Bilirubin 0.1 Direct Bilirubin < 0.2 AST 25 ALT 20 Alkaline Phosphatase 69 Troponin I High Sens 9.6 Total Protein 7.2 Albumin 4.1 Urine Color Yellow Urine Appearance Clear Urine pH 5.5 Ur Specific Draper 1.015 Urine Protein Negative Urine Glucose (UA) Negative Urine Ketones Negative Urine Blood Negative Urine Nitrite Negative Ur Leukocyte Esterase Negative Influenza Type A (PCR) NEGATIVE Influenza Type B (PCR) NEGATIVE RSV RNA Qual (PCR) NEGATIVE SARS-CoV-2 RNA (RT-PCR) NEGATIVE Imaging Radiologist's Impressions: Chest x-ray Negative for acute findings Assessment and Plan (1) COPD exacerbation: Status: Acute Plan Pt is a 59 year old female with past medical history COPD on home oxygen, trigeminal and occipital neuralgia, hyperlipidemia, JUANITO not on CPAP, CVA, nephrolithiasis, moderate aortic stenosis, obesity, chronic pain on oxycodone, hypertension with multiple hospitalizations related to COPD exacerbations in the past discharged 2 days ago from the hospital for COPD exacerbation secondary to inability to use CPAP for JUANITO due to to infected teeth. Earlier today patient noted that she was feeling more short of breath and could not maintain a sat above 82% at home on oxygen. Patient's was notified by phone and called 911. Patient currently presents stable in regards to respiratory status with no evidence of dyspnea or work of breathing. Patient did not require BiPAP in the ED. COPD exacerbation Patient apparently stabilized with EMS and received duo nebs and methylprednisolone We will continue methylprednisolone 40 IV b.i.d. No indication to continue antibiotics at this time Continue duo nebs, adding budesonide VBG 7.39, 60, 92, 37 No leukocytosis and chest x-ray negative for acute findings, UA negative for UTI O2 via nasal cannula Supportive care Incentive spirometer Patient continues to follow with refrigeration operator as an outpatient Dental caries/ active infection Amoxicillin we will continue 500 mg q.12 Patient saw dentist Tuesday 04/10 and was told she has to infected teeth that likely we will need to be extracted Benzocaine gel topically ordered Oxycodone ordered as patient uses at home Tylenol PRN Generalized weakness PT eval requested Inpatient rehab versus pulmonary rehab recommended by refrigeration operator last admission JUANITO on CPAP CPAP is ordered Tolerance is low for CPAP currently due to dental pain Mild aortic stenosis Follow with cardiology annually as an outpatient Hypertension Continue valsartan once med rec completed GERD Omeprazole Avoid food triggers Hyperlipidemia Continue statin Cardiac diet Depression/anxiety Continue duloxetine, lorazepam Mood stable, patient denies SI or HI/hallucinations Trigeminal neuralgia with occipital neuralgia Continue gabapentin, oxcarbazepine Obesity Patient verbalized understanding of the benefits of weight loss Patient has been weaker than usual, unable to tolerate exercise Nutritional consultation placed DVT prophylaxis: Lovenox Med rec pending Full code status Quality Stroke Does the patient have a stroke diagnosis?: No Reason for No Anti-thrombotic by Day Two: N/A - Med Ordered VTE Prior VTE?: No VTE Risk Level:: Medical - moderate - high VTE Device Contraindication: N/A - Device Ordered VTE Drug Contraindication: N/A - Med Ordered
--- NOTE | 2025-04-12 02:26 | PC.NURSE ---
Pt medicated per mar Pt assisted with bedpan Pt requested and brief changed and bed cleaned Pt assisted with positioning for comfort Plan of care ongoing.
--- NOTE | 2025-04-12 02:37 | PC.NURSE ---
Pt medicated per [facility] Plan of care ongoing.
--- NOTE | 2025-04-12 04:20 | PC.NURSE ---
pt is alert and oriented, skin pwd, respirations even and unlabored, ls diminished in the lower right lobe, sating well on her baseline of 2l oxygen on nasal cannual, pt is reporting left sided face pain do to a tooth infection and trigeminal neuralgia and right sided lower back pain, vs stable at this time
[2025-04-12] MEDS: oxyCODONE HCl Immed Release 5 MG TABLET PO ×3 (04:21→20:00)
[2025-04-12 04:56] LABS: Hematocrit 37.2 % (37.0-47.0); Hemoglobin 11.3 g/dl (12.0-16.0); Imm Gran Abs Auto 0.03 X10*3/uL (0.00-0.03); Imm Gran Pct Auto 0.3 % (0.0-0.4); Lymphocytes Absolute Auto 0.3 X10*3/uL (1.2-4.9); MANUAL DIFF FLAG SCAN; Mean Corpuscular HGB Conc 30.4 g/dl (31.0-35.0); Mean Corpuscular Hemoglobin 30.0 pg (27.0-33.0); Mean Corpuscular Volume 98.7 fL (80.0-98.0); NRBC Abs Auto 0.020 X10*3/uL (0.0-0.012); NRBC Pct Auto 0.2 /100WBC (0.0-0.2); Platelet Count 354 X10*3/uL (160-400); Red Blood Count 3.77 X10*6/uL (4.20-5.50); SCAN SMEAR FLAG 1; White Blood Count 9.4 X10*3/uL (4.8-10.8)
[2025-04-12 05:13] LABS: Alanine Aminotransferase 18 U/L (0-31); Albumin Level 4.0 g/dL (3.5-5.0); Alkaline Phosphatase 63 U/L (39-117); Anion Gap 14 (12-20); Aspartate Amino Transferase 26 U/L (5-31); Blood Urea Nitrogen 10 mg/dL (9-16); Calcium 8.8 mg/dL (8.4-10.2); Carbon Dioxide 27 mmol/L (22-29); Chloride 106 mmol/L (96-108); Creatinine Clr Calc Pharmacy 114.7; Estimated Glomerular Filt Rate > 60; Potassium 4.3 mmol/L (3.3-5.1); Sodium 143 mmol/L (135-145); Total Protein 7.0 g/dL (6.5-8.0)
[2025-04-12] MEDS: 0.9 % Sodium Chloride Flush 3 ML SYRINGE IVFLUSH ×3 (08:40→20:01)
--- NOTE | 2025-04-12 08:48 | PHA.MEDREC ---
Addendum entered by Yesi Curry RPh 04/12/25 08:58: reviewed by [facility] Original Note: Pharmacy Consult ? Medication Reconciliation Pharmacy has completed the medication reconciliation. Spoke with pt and she verified she was just discharged from 04/09 and there are no changes from that last discharge. Pt taking an Amoxicillin 500mg regimen TID@0600,1200,2000 and started that regimen yesterday and was only able to take her morning and afternoon dose. Pt also confirmed she is taking her Prednisone 5mg tab 1 Q48H (on even days of the month) and states she last took that 04/10 and is due today 04/12.
--- NOTE | 2025-04-12 15:39 | MHC.CM.PN ---
Pt. lives with her , she is active with [facility]. She has home O2 from [facility]. to transport home at DC. DCP: home with services or [facility] (PT rec. pulm rehab). CM to follow for DC needs.
--- NOTE | 2025-04-12 16:31 | PM.EVENT ---
Event Note Date of Service: 04/12/25 Event Note: Chart reviewed patient examined agree with history and physical and plan as outlined Time Spent With Patient Time: Total time managing care of this patient today ____ minutes.
[2025-04-12] MEDS: Aspirin Enteric Coated 81 MG TABLET.DR PO (19:58)
[2025-04-12] MEDS: Calcium + Vitamin D 250 MG TABLET 500 MG PO (19:59)
[2025-04-12] MEDS: Flu Vacc TS2025-26(6mo up)/PF 0.5 ML SYRINGE IM (20:05)
--- NOTE | 2025-04-12 22:56 | PM.EVENT ---
Event Note Date of Service: 04/12/25 Event Note: Notified by nursing that patient is having increased dental pain on the left side. Patient states oxycodone is no longer helping. 1 mg of Dilaudid ordered IV. Toradol 15 IV ordered. Patient encouraged to use benzocaine gel. Ice packs also ordered. Patient's plan is to revisit her dentist and have extractions done at some point in the near future. Time Spent With Patient Time: Total time managing care of this patient today ____ minutes.
[2025-04-13 04:00] VITALS: BP 141/69; PULSE 82; RESP 18; TEMP 36.2; O2SAT 90
[2025-04-13] MEDS: Albuterol/Iprat 2.5/0.5MG 3 ML AMPUL.NEB INHALE (04:00)
[2025-04-13 04:02] VITALS: PULSE 79; RESP 20; O2SAT 92
[2025-04-13 07:24] VITALS: BP 118/67; PULSE 79; RESP 16; TEMP 36.6; O2SAT 91
[2025-04-13 07:52] VITALS: PULSE 74; RESP 20; O2SAT 91
[2025-04-13] MEDS: Benzocaine 20 % Oral Gel 9 GM TUBE 1 APPL MUCOUS MEM (07:52)
[2025-04-13] MEDS: 0.9 % Sodium Chloride Flush 3 ML SYRINGE IVFLUSH (07:52)
[2025-04-13] MEDS: PT OWN (Budesonide-Glycopyr-Formoterol [Breztri Aerosphere] 160-9-4.8 mc 2 EACH INHALE (08:01)
--- NOTE | 2025-04-13 08:03 | HO.PM.IMPN ---
Subjective Subjective Date of Service: 04/13/25 Interval History: F/u copd exacerbatrion, breathing fine O2 sat Ok patient is not comfortable at home because no one is watching at the same time refusing to go to rehab She is comfortable and crocheting Review of Systems P Physical Exam Vital Signs: Vital Signs: Last Vital Signs Temp 97.8 F 04/13/25 07:24 Pulse 74 04/13/25 07:52 Resp 20 04/13/25 07:52 BP 118/67 04/13/25 07:24 Pulse Ox 91 L 04/13/25 07:24 O2 Del Method Nasal Cannula 04/13/25 07:24 O2 Flow Rate 2 04/13/25 07:24 Oxygen Flow Rate 2 04/11/25 20:25 BMI result Body Mass Index 33.8 Objective Data Active Medications Acetaminophen (Acetaminophen 325 Mg Tablet) 650 mg PO Q6H PRN PRN Reason: Pain, Mild 1-3,fever,headache Acetaminophen/Butalbital/Caffeine (Butalb/Acetamin/Caff 50/325/40 Tablet) 1 tab PO DAILY MRX1 PRN PRN Reason: Migraine Headache Albuterol Sulfate (Albuterol Sulfate 90 Mcg 8 Gm Inhaler) 2 puff INHALE Q4H PRN PRN Reason: Shortness Of Breath Or Wheezing Albuterol/Ipratropium (Albuterol/Iprat 2.5/0.5mg 3 Ml Ampul.Neb) 3 ml INHALE Q4H PRN PRN Reason: for dyspnea Last Admin: 04/13/25 04:00 Dose: 3 ml Documented By: MARKO Amoxicillin (Amoxicillin 500 Mg Capsule) 500 mg PO BID [facility] Last Admin: 04/13/25 07:52 Dose: 500 mg Documented By: XAVIER Aripiprazole (Aripiprazole 5 Mg Tablet) 5 mg PO DAILY@0600 [facility] Last Admin: 04/13/25 04:16 Dose: 5 mg Documented By: LOUIE Aspirin (Aspirin Enteric Coated 81 Mg Tablet.) 81 mg PO DAILY@1999 [facility] Last Admin: 04/12/25 19:58 Dose: 81 mg Documented By: LOUIE Atorvastatin Calcium (Atorvastatin Calcium 80 Mg Tablet) 80 mg PO DAILY@1999 [facility] Last Admin: 04/12/25 19:58 Dose: 80 mg Documented By: LOUIE Baclofen (Baclofen 20 Mg Tablet) 20 mg PO TID@00, [facility] Last Admin: 04/13/25 04:15 Dose: 20 mg Documented By: LOUIE Benzocaine (Benzocaine 20 % Oral Gel 9 Gm Tube) 1 appl MUCOUS MEM QID PRN; Protocol PRN Reason: Pain, Mild (Pain Scale 1-3) Last Admin: 04/13/25 07:52 Dose: 1 appl Documented By: XAVIER Budesonide (Budesonide 0.5 Mg/2 Ml Ampul.Neb) 0.5 mg INHALE RBID [facility] Last Admin: 04/13/25 07:47 Dose: 0.5 mg Documented By: MARYLU Calcium Carbonate (Calcium Carbonate 750 Mg Tab.Chew) 750 mg PO Q4H PRN PRN Reason: Heartburn Calcium Carbonate/Cholecalciferol (Calcium + Vitamin D 250 Mg Tablet) 500 mg PO DAILY@1999 [facility] Last Admin: 04/12/25 19:59 Dose: 500 mg Documented By: LOUIE Duloxetine HCl (Duloxetine Hcl 60 Mg Capsule.Dr) 60 mg PO BID@ [facility] Last Admin: 04/13/25 04:15 Dose: 60 mg Documented By: LOUIE Enoxaparin Sodium (Enoxaparin Sodium 40 Mg/0.4 Ml Syringe) 40 mg SUBCUT Q24H [facility] Last Admin: 04/13/25 03:42 Dose: 40 mg Documented By: LOUIE Gabapentin (Gabapentin 400 Mg Capsule) 1,200 mg PO TID@599, [facility] Last Admin: 04/13/25 04:14 Dose: 1,200 mg Documented By: LOUIE Guaifenesin (Guaifenesin 200 Mg/10 Ml 10 Ml Liquid) 10 ml PO Q4H PRN PRN Reason: Cough Lorazepam (Lorazepam 0.5 Mg Tablet) 0.5 mg PO BEDTIME@1999 [facility] Last Admin: 04/12/25 19:58 Dose: 0.5 mg Documented By: LOUIE Lorazepam (Lorazepam 0.5 Mg Tablet) 0.5 mg PO DAILY PRN PRN Reason: Anxiety Magnesium Hydroxide (Milk Of Magnesia 30 Ml Oral.Susp) 30 ml PO DAILY PRN PRN Reason: Constipation Magnesium Oxide (Magnesium Oxide 400 Mg Tablet) 400 mg PO DAILY@06 [facility] Last Admin: 04/13/25 04:15 Dose: 400 mg Documented By: LOUIE Melatonin (Melatonin 3 Mg Tablet) 3 mg PO BEDTIME PRN PRN Reason: Insomnia Methylprednisolone Sodium Succinate (Methylprednisolone Sod Succ 40 Mg/Ml Vial) 40 mg IVPUSH Q12H [facility] Last Admin: 04/13/25 07:52 Dose: 40 mg Documented By: XAVIER Pt Own (Budesonide- Glycopyr-Formoterol [Breztri Aerosphere] 160-9-4.8 Mc 2 inhalation INHALE BID@ [facility] Last Admin: 04/13/25 08:01 Dose: 2 inhalation Documented By: MARYLU Omeprazole (Omeprazole 20 Mg Capsule.Dr) 20 mg PO DAILY@06 [facility] Last Admin: 04/13/25 04:15 Dose: 20 mg Documented By: LOUIE Ondansetron HCl (Ondansetron Hcl 4 Mg/2 Ml Vial) 4 mg IVPUSH Q8H PRN PRN Reason: Nausea and Vomiting Oxcarbazepine (Oxcarbazepine 300 Mg Tablet) 300 mg PO BID@ [facility] Last Admin: 04/13/25 04:15 Dose: 300 mg Documented By: LOUIE Oxycodone HCl (Oxycodone Hcl Immed Release 5 Mg Tablet) 5 mg PO Q6H PRN PRN Reason: Pain, Moderate(Pain Scale 4-6) Last Admin: 04/12/25 20:00 Dose: 5 mg Documented By: LOUIE Comments: given per pt request Polyethylene Glycol (Polyethylene Glycol 3350 17 Gm Powd.Pack) 17 gm PO DAILY PRN PRN Reason: Constipation Prazosin HCl (Prazosin Hcl 1 Mg Capsule) 2 mg PO DAILY@1999 [facility]; Protocol Last Admin: 04/12/25 19:58 Dose: 2 mg Documented By: LOUIE Roflumilast (Roflumilast 500 Mcg Tablet) 500 mcg PO DAILY@0600 [facility] Last Admin: 04/13/25 04:15 Dose: 500 mcg Documented By: LOUIE Senna (Sennosides 8.6 Mg Tablet) 17.2 mg PO BEDTIME [facility] Last Admin: 04/12/25 19:59 Dose: 17.2 mg Documented By: LOUIE Sodium Chloride (0.9 % Sodium Chloride Flush 3 Ml Syringe) 3 ml IVFLUSH QSHIFT [facility] Last Admin: 04/13/25 07:52 Dose: 3 ml Documented By: XAVIER Valsartan (Valsartan 40 Mg Tablet) 40 mg PO DAILY@0600 [facility]; Protocol Last Admin: 04/13/25 04:15 Dose: 40 mg Documented By: LOUIE Verapamil HCl (Verapamil Hcl 120 Mg Tablet) 120 mg PO BID@0600,2000 [facility]; Protocol Last Admin: 04/13/25 04:15 Dose: 120 mg Documented By: LOUIE Labs 04/12/25 04:05 04/12/25 04:05 Microbiology Microbiology Results: Microbiology 04/11/25 21:49 Blood Culture - Preliminary Blood - Venous No growth after 24 hours. 04/11/25 21:49 Blood Culture - Preliminary Blood - Venous No growth after 24 hours. Assessment and Plan (1) COPD exacerbation: Status: Acute Plan Pt is a 59 year old female with past medical history COPD on home oxygen, trigeminal and occipital neuralgia, hyperlipidemia, JUANITO not on CPAP, CVA, nephrolithiasis, moderate aortic stenosis, obesity, chronic pain on oxycodone, hypertension with multiple hospitalizations related to COPD exacerbations in the past discharged 2 days ago from the hospital for COPD exacerbation secondary to inability to use CPAP for JUANITO due to to infected teeth. Earlier today patient noted that she was feeling more short of breath and could not maintain a sat above 82% at home on oxygen. Patient's was notified by phone and called 911. Patient currently presents stable in regards to respiratory status with no evidence of dyspnea or work of breathing. Patient did not require BiPAP in the ED. Recurrent COPD exacerbation, dc'd 3 days earlier -contine nebs -po steroid -O2 as needed Dental caries/ active infection Amoxicillin we will continue 500 mg q.12 Patient saw dentist Tuesday 04/10 and was told she has to infected teeth that likely we will need to be extracted Benzocaine gel topically ordered Oxycodone ordered as patient uses at home Tylenol PRN Generalized weakness PT eval requested Inpatient rehab versus pulmonary rehab recommended by electrophonic engineer last admission JUANITO on CPAP CPAP is ordered Tolerance is low for CPAP currently due to dental pain Mild aortic stenosis Follow with cardiology annually as an outpatient Hypertension Continue valsar GERD Omeprazole Avoid food triggers Hyperlipidemia Continue statin Cardiac diet Depression/anxiety Continue duloxetine, lorazepam Mood stable, patient denies SI or HI/hallucinations Trigeminal neuralgia with occipital neuralgia Continue gabapentin, oxcarbazepine Obesity weight loss advised DVT prophylaxis: Lovenox Med rec pending Full code status Quality Stroke Does the patient have a stroke diagnosis?: No Reason for No Anti-thrombotic by Day Two: N/A - Med Ordered VTE Prior VTE?: No VTE Risk Level:: Medical - moderate - high VTE Device Contraindication: N/A - Device Ordered VTE Drug Contraindication: N/A - Med Ordered
[2025-04-13] MEDS: oxyCODONE HCl Immed Release 5 MG TABLET PO ×2 (08:25→13:02)
--- NOTE | 2025-04-13 08:34 | PC.RT ---
pt is unable to wear cpap due to jaw and dental pain. Will let MD aware
--- NOTE | 2025-04-13 11:21 | MHC.CM.PN ---
pt lives with is active jonathan lilya has own ride home and home 02 dc plan home
--- NOTE | 2025-04-13 12:45 | PC.RT ---
pt unable to wear cpap due to infected teeth affecting her trigeminal neuralgia. She says she cannot wear it and will wear 2 l oxygen at night while in the hospital.
[2025-04-13 15:41] VITALS: BP 148/88; PULSE 100; RESP 18; TEMP 36.6; O2SAT 92
--- NOTE | 2025-04-13 15:44 | PM.DS ---
DS: Providers Provider Date of Service: 04/13/25 Date of admission: 04/12/25 01:09 Date of discharge: 04/13/25 Primary care physician: Antione Segura PA-C DS: Diagnosis Discharge Diagnosis (1) COPD exacerbation: Status: Acute DS: Summary Hospital Course Hospital Course: admission hpi Chief Complaint: Dyspnea Pt is a 59 year old female with past medical history COPD on home oxygen, trigeminal and occipital neuralgia, hyperlipidemia, JUANITO not on CPAP, CVA, nephrolithiasis, moderate aortic stenosis, obesity, chronic pain on oxycodone, hypertension with multiple hospitalizations related to COPD exacerbations in the past discharged 2 days ago from the hospital for COPD exacerbation secondary to inability to use CPAP for JUANITO due to to infected teeth. Earlier today patient noted that she was feeling more short of breath and could not maintain a sat above 82% at home on oxygen. Patient's was notified by phone and called 911. Patient denied any near syncopal or syncopal events. Patient in general though reports that she is weaker and at times feels like she will fall. Patient was not having any chest pain and currently denies any chest pain, shortness of breath at rest, abdominal pain, nausea or vomiting. Patient denies any fever or chills. Patient was seen by a dentist this past Wednesday and was started again on amoxicillin and now knows that she has two problematic teeth that need to be extracted most likely. Patient also has an outpatient follow-up appointment with her spinner frame in 1 month. Previously patient was seen by Pulmonary and was instructed to increase her oxygen from 1-2 L while on CPAP at night and in addition recommended highly rehabilitation either inpatient or outpatient pulmonary rehab. It does not appear patient has a initiated this so far. Patient did continue smoking cessation since last year. Chest x-ray currently negative for any acute findings. VBG pH 7.39, CO2 60, PO2 92 and bicarb 37. Patient has no leukocytosis and H&H are 11.3 and 36.5. UA negative for UTI. Patient currently on nasal cannula satting anywhere from 91-92% with no evidence of respiratory distress. COVID, RSV and flu are all negative. Patient did receive ceftriaxone and azithromycin in the ED. hospital course Patient came back to hospial just 3 days after discharge for the same reason: dyspnea in setting of copd, she was admitted yet again and given iv steroid again, bronchodilator and has been at her baseline, saturating about 91 to 92 on 2 liter, she says that her main issue right now has been a tooth ache for which she has been getting augmentin for she was been given iv dilaudid and oral oxycodone. As for her respiatory status she's at her baseline without distress, and was jus discharge with prednisone. She was pulmonary rehab and declined, she prefers going home, she admits that part of her issue is that she is usually home barry until come home late and she like being watched here. She is reassured and will go home on her usual regimen and short term use of dilaudid for dental pain and follow up with dentist Time Attestation Discharge Coordination Time (in mins): 40 Quality: Safe Use of Opioids Does Pt have an Active Cancer Diagnosis on the Problem List?: No Quality: Stroke Does the patient have a stroke diagnosis?: No Physical Exam Vital Signs: Vital Signs: Last Vital Signs Temp 97.8 F 04/13/25 15:41 Pulse 100 04/13/25 15:41 Resp 18 04/13/25 15:41 BP 148/88 H 04/13/25 15:41 Pulse Ox 92 04/13/25 15:41 O2 Del Method Nasal Cannula 04/13/25 15:41 O2 Flow Rate 2 04/13/25 15:41 Oxygen Flow Rate 2 04/11/25 20:25 BMI result Body Mass Index 33.8 DS: Data Data Completed and Pending Completed studies during hospitalization [Text1]: Procedures Assistance with Respiratory Ventilation, Less than 24 Consecutive Hours, Continuous Positive Airway Pressure (03/13/25) Introduction of Vasopressor into Peripheral Vein, Percutaneous Approach (12/01/24) Labs on day of discharge: Preliminary micro results at discharge 04/11/25 21:49 Blood Culture - Preliminary Blood - Venous No growth after 24 hours. 04/11/25 21:49 Blood Culture - Preliminary Blood - Venous No growth after 24 hours. Discharge Plan Discharge Anticipated Discharge Date/Time: 04/13/25 15:37 Patient Disposition: Home Health Service Discharge Diagnosis: COPD exacerbation Referrals: Antione Segura PA-C [Primary Care Provider, Internal Medicine] - 1 Week Discharge Medications: New hydromorphone [Dilaudid] 2 mg tablet 2 mg PO Q6H Qty: 16 0RF Rx Instructions: Partial Fill upon patient request. Continued ipratropium-albuterol 0.5 mg-3 mg(2.5 mg base)/3 mL solution for nebulization 3 ml inhalation Q4H PRN (Reason: for dyspnea) Qty: 180 11RF baclofen 20 mg tablet 20 mg PO TID@0600,1200,2000 aripiprazole [Abilify] 5 mg tablet 5 mg PO DAILY@0600 oxcarbazepine 300 mg tablet 300 mg PO BID@0600,1999 acetaminophen 650 mg Tablet Extended Release 1,300 mg PO Q8H PRN (Reason: Pain) magnesium oxide 400 mg magnesium Tablet 400 mg PO DAILY@0600 oxycodone 5 mg tablet 5 mg PO Q6H PRN (Reason: Severe Pain (Scale Score 7-10)) melatonin 3 mg Tablet 3 mg PO BEDTIME PRN (Reason: Insomnia) atorvastatin 80 mg tablet 80 mg PO DAILY@1999 pymedwqtab-ffqsdjqhexknf-fydr 50-325-40 mg tablet 1 tab PO DAILY MRX1 PRN (Reason: Migraine Headache) hyoscyamine sulfate 0.125 mg tablet 0.25 mg PO Q6H PRN (Reason: Abdominal Discomfort) gabapentin 300 mg capsule 1,200 mg PO TID@0600,1200,1999 duloxetine 60 mg capsule,delayed release(DR/EC) 60 mg PO BID@0600,1999 (DME) nebulizer and compressor Device See Rx Instructions .Route Qty: 1 0RF Rx Instructions: As directed albuterol sulfate 90 mcg/actuation HFA aerosol inhaler 2 puff inhalation Q4H PRN (Reason: Shortness Of Breath Or Wheezing) aspirin 81 mg tablet,delayed release (DR/EC) 81 mg PO DAILY@1999 polyethylene glycol 3350 [Miralax] 17 gram/dose Powder 17 g PO DAILY PRN (Reason: Constipation) lorazepam 0.5 mg tablet 0.5 mg PO BEDTIME@1999 Breztri Aerosphere 160-9-4.8 mcg/actuation HFA aerosol inhaler 2 inh inhalation BID@0600,1800 lorazepam 0.5 mg tablet 0.5 mg PO DAILY PRN (Reason: Anxiety) verapamil 120 mg tablet 120 mg PO BID@0600,1999 valsartan 40 mg tablet 40 mg PO DAILY@0600 Protocol: Hold for SBP< HOLD for SBP < : 90 roflumilast [Daliresp] 500 mcg tablet 500 mcg PO DAILY@0600 prednisone 5 mg tablet 5 mg PO Q48H omeprazole 20 mg capsule,delayed release(DR/EC) 20 mg PO DAILY@0600 amoxicillin 500 mg capsule 500 mg PO TID@0600,1200,2000 calcium carbonate-vitamin D3 600 mg-5 mcg (200 unit) tablet 1 tab PO DAILY@1999 prazosin 2 mg capsule 2 mg PO DAILY@1999 (DME) Oxygen Home Use Kit See Rx Instructions .Route Rx Instructions: As directed Discharge Orders: Discharge Order (Routine); Ordered 04/13/25 Ordered By: Judah Hu Diet: Advance to usual diet Activity on Discharge: As tolerated Stand Alone Forms: Patient Portal Discharge page Print Language: Lithuanian Care Plan Goals: recovery from copd and dental abscess Health Concerns: dental abscess chronic copd, chronic hypoxia Plan of Treatment: take all your medication as directed take Prednisone as recently prescribed continue Augmentin for dental infection and follow up with your Dentist follow with your Doctor in a week Assessment: see above
== END 2025-04-13 16:50 | disposition home health service (06) | DRG 140 ==
LOC: HO.ED 04-12 01:20 → HO.EDOVER 04-12 01:23 → HO.S3 04-12 14:18
PROVIDERS: Admitting Provider Nurse Practitioner Family; Emergency Provider Emergency Medicine; PCP Physician Assistant Surgical; Visit Provider Internal Medicine
DX: J44.1 Chronic obstructive pulmonary disease with (acute) exacerbation (principal); Z99.81 Dependence on supplemental oxygen; E66.9 Obesity, unspecified; E78.5 Hyperlipidemia, unspecified; G47.33 Obstructive sleep apnea (adult) (pediatric); G50.0 Trigeminal neuralgia; I35.0 Nonrheumatic aortic (valve) stenosis; K02.9 Dental caries, unspecified; G89.29 Other chronic pain; I10 Essential (primary) hypertension; F41.9 Anxiety disorder, unspecified; F32.A Depression, unspecified; Z23 Encounter for immunization; Z68.33 Body mass index [BMI] 33.0-33.9, adult; M54.81 Occipital neuralgia; Z20.822 Contact with and (suspected) exposure to COVID-19; Z87.891 Personal history of nicotine dependence; Z79.52 Long term (current) use of systemic steroids; Z79.82 Long term (current) use of aspirin; Z79.891 Long term (current) use of opiate analgesic; Z79.899 Other long term (current) drug therapy
CPT/HCPCS: 36415; 71045; 80048; 80053; 80076; 81003; 82803; 83605; 84484; 85025; 87040; 87637; 90656; 93005; 94640; 97162; 99285; J0456; J0696; J1171; J1650; J1885; J2919; J3475

== ENCOUNTER → 2025-04-11 21:06 | Outpatient (BNV) | payer BC, SELFPAY | PROVIDERS: Admitting Provider Nurse Practitioner Family; Emergency Provider Emergency Medicine; PCP Physician Assistant Surgical; Visit Provider Internal Medicine | DX: R06.02 Shortness of breath (principal) | CPT/HCPCS: 93010 ==

== ENCOUNTER → 2025-04-11 21:07 | Outpatient (BNV) | payer BC, SELFPAY | PROVIDERS: Emergency Provider Emergency Medicine; PCP Physician Assistant Surgical; Visit Provider Specialist | DX: J44.9 Chronic obstructive pulmonary disease, unspecified (principal); R06.02 Shortness of breath | CPT/HCPCS: 71045 ==

== ENCOUNTER → 2025-04-12 01:09 | Outpatient (BNV) | payer BC, SELFPAY | PROVIDERS: Admitting Provider Nurse Practitioner Family; Emergency Provider Emergency Medicine; PCP Physician Assistant Surgical; Visit Provider Nurse Practitioner Family | DX: J44.1 Chronic obstructive pulmonary disease with (acute) exacerbation (principal) | CPT/HCPCS: 99223; 99239; 99499 ==

== ENCOUNTER 2025-04-16 04:58 | Observation (INO) | payer BC, SELFPAY ==
--- OUTSIDE RECORDS SUMMARY | 2025-04-12 14:00 | XMS_ITS | Encounter Summary ---
Author Organization [facility] Address [address] [place] [phone] Phone Care Team Providers Care Service Delivery Analyst Name Role Phone Jn Cardoza MD Unavailable Denys Henriquez MD Unavailable Antione Segura PA-C Primary Care Provider Rhett Cortez MD Unavailable Reason for Visit * Auth/Cert (Routine) Specialty Diagnoses / Procedures Referred By Dary smith Referred To Contact Referral ID Status Reason Start Date Expiration Date Visits Re quested Visits Authorized [id number] 1 1 Encounter Details Date Type Department Care Team (Late st Contact Info) Description 04/12/2025 3:00 PM EDT Home Care Visit [facility] [address] [place] [phone] Thao Kennedy [address] [place] [address] [email or web address] CASE COMMUNICATION Social History Tobacco Use Types [...] Care Team (Late st Contact Info) Description 04/16/2025 2:00 PM EST Office Visit [facility] [address] [place] [address] Antione Segura PA-C [address] [place] [address] [email or web address] 04/16/2025 3:00 PM EST Appointment [facility] [address] [place] [phone] Thao Kennedy [address] [place] [phone] [email or web address] 04/18/2025 1:30 AM EST Appointment [facility] [address] [place] [phone] Shakira Hand RN [address] [place] [address] [email or web address] 04/19/2025 2:00 AM EST Appointment [facility] [address] [place] [phone] Thao Kennedy [address] [place] [phone] [email or web address] 04/23/2025 2:00 AM EST Appointment [facility] [address] [place] [phone] Thao Kennedy [address] [place] [address] 04/24/2025 9:40 AM EST Office Visit [facility] [address] [place] [address] Antione Segura PA-C [address] [place] [address] 04/25/2025 1:30 AM EST Appointment [facility] [address] [place] [phone] Shakira Hand RN [address] [place] [phone] [email or web address] 06/25/2025 9:30 AM EST Telemedicine [facility] Neu[facility] [address] [place] [phone] Jn Cardoza MD [address] [place] [phone] documented as of this encounter Visit Diagnoses Not on filedocumented in this encounter Additional Health Concerns Assessment Noted Time PHQ-9 Depression Total Score: 23 025 3:04 PM EDT PHQ-2 Depression Total Score: 5 03/21/20 25 3:04 PM EDT documented as of this encounter Care Teams Service Delivery Analyst Relationship Specialty Start Date End Date Antione Segura PA-C [address] [place] [address] PCP - General Physician Orthopedic Specialist 10/12/24 Jn Cardoza MD [address] [place] [phone] Neurology 02/03/24 Denys Henriquez MD [address] [place] [address] [place] [address] Pulmonary Disease 02/03/24 Rhett Cortez MD [address] [place] [address] [email or web address] Insurance Assigned Provider 01/20/25 documented as of this encounter Additional Source Comments The information contained in this document represents components of the legal health record. It is not the complete legal health record.[facility]
[2025-04-16] VITALS (14 sets, daily range): BP systolic 113–169; BP diastolic 48–86; PULSE 74–113; RESP 17–27; TEMP 36.2–37.3; O2SAT 90–98; BMI 35.2; BMI 43.2
--- NOTE | ~2025-04-16 | XR_ITS ---
CLINICAL HISTORY: sob 1 view chest x-ray Comparison: CR - XR CHEST 1V - 04/11/25 21:06 EDT CR - XR CHEST 1V - 04/08/25 02:16 EDT Findings: Patchy opacities of the lung bases could reflect developing pneumonia. Heart size is stable. No acute fracture. IMPRESSION: Patchy bibasilar opacities could reflect developing pneumonia. This document has been electronically signed by: Jewel Handley MD on 04/16/2025 06:20:22
--- NOTE | 2025-04-16 05:04 | ECG_ITS ---
Test Reason : SOB Blood Pressure : */* mmHG Vent. Rate : 111 BPM Atrial Rate : 111 BPM P-R Int : 124 ms QRS Dur : 78 ms QT Int : 302 ms P-R-T Axes : 47 58 45 degrees QTcB Int : 410 ms Sinus tachycardia with occasional Premature ventricular complexes Otherwise normal ECG When compared with ECG of 11-Apr-2025 21:23, Premature ventricular complexes are now Present Referred By: Natasha Giordano Electronically Signed By: Eladio Nelson
[2025-04-16] MEDS: Magnesium Sulfate/H2O 2 GM/50 ML PIGGYBACK IV (05:31)
[2025-04-16 05:32] LABS: Venous Blood Gas Refer to POC result
[2025-04-16 05:34] LABS: Hematocrit 35.7 % (37.0-47.0); Hemoglobin 11.1 g/dl (12.0-16.0); Imm Gran Abs Auto 0.06 X10*3/uL (0.00-0.03); Imm Gran Pct Auto 0.6 % (0.0-0.4); Lymphocytes Absolute Auto 1.9 X10*3/uL (1.2-4.9); MANUAL DIFF FLAG NO; Mean Corpuscular HGB Conc 31.1 g/dl (31.0-35.0); Mean Corpuscular Hemoglobin 30.5 pg (27.0-33.0); Mean Corpuscular Volume 98.1 fL (80.0-98.0); NRBC Abs Auto 0.020 X10*3/uL (0.0-0.012); NRBC Pct Auto 0.2 /100WBC (0.0-0.2); Platelet Count 393 X10*3/uL (160-400); Red Blood Count 3.64 X10*6/uL (4.20-5.50); White Blood Count 9.3 X10*3/uL (4.8-10.8)
--- NOTE | 2025-04-16 05:34 | PC.NURSE ---
Pt sat 88-92% on 6L oxymask with RR 30's. Respiratory at bedside placed pt on bipap 10/5, 30% O2. Pt tolerating it well. Monitoring is ongoing.
[2025-04-16] MEDS: Albuterol Sulfate 5 MG, Albuterol/Iprat 2.5/0.5MG 3 ML 3 ML INHALE (05:38)
[2025-04-16 05:40] LABS: VBG HCO3 37 mmol/L (22-26); VBG O2 % Saturation 99.0 %
--- NOTE | 2025-04-16 05:42 | ED.SOB ---
HPI - SOB/Dyspnea General Chief Complaint: Dyspnea Stated Complaint: SOB Time Seen by Provider: 04/16/25 05:02 Source: patient, EMS, RN notes reviewed and old records reviewed Mode of arrival: EMS Limitations: no limitations History of Present Illness HPI Narrative: 60-year-old female with a history of COPD, CHF, aortic stenosis, and hypercapnic respiratory failure presenting to the ED for evaluation of shortness of breath. She was discharged from this hospital yesterday for similar complaints. Patient reports her home O2 was 77%. Patient attempted to treat her symptoms with a breathing treatment at home, felt no improvement and activated EMS. EMS reports they found the patient with SpO2 in the 60s, given a DuoNeb with improvement to 97%. The patient denies associated chest pain, fever/chills, vomiting, diarrhea, recent sick contacts, or recent trauma. The patient reports she has been compliant with her medications. Related Data Home Medications ?Medication ?Instructions ?Recorded ?Confirmed atorvastatin 80 mg tablet 80 mg PO DAILY@199903/04/23 04/12/25 mhsokeuojo-kknqlvdycwdtw-zlyfnwlq 1 tab PO DAILY MRX1 PRN Migraine 03/04/23 04/12/25 50 mg-325 mg-40 mg tablet Headache duloxetine 60 mg capsule,delayed 60 mg PO BID@0600,199903/04/23 04/12/25 release gabapentin 300 mg capsule 1,200 mg PO TID@0600,1200,199903/04/23 04/12/25 hyoscyamine sulfate 0.125 mg tablet 0.25 mg PO Q6H PRN Abdominal 03/04/23 04/12/25 Discomfort Oxygen Home Use 04/16/23 02/26/25 prazosin 2 mg capsule 2 mg PO DAILY@199904/16/23 04/12/25 albuterol sulfate 90 mcg/actuation 2 puff inhalation Q4H PRN 01/31/24 04/12/25 aerosol inhaler Shortness Of Breath Or Wheezing aspirin 81 mg tablet,delayed 81 mg PO DAILY@199905/22/24 04/12/25 release calcium 600 mg (as 1 tab PO DAILY@199906/20/24 04/12/25 carbonate)-vitamin D3 5 mcg (200 unit) tablet baclofen 20 mg tablet 20 mg PO TID@0600,1200,199910/29/24 04/12/25 aripiprazole 5 mg tablet (Abilify) 5 mg PO DAILY@0612/01/24 04/12/25 oxcarbazepine 300 mg tablet 300 mg PO BID@599,199912/21/24 04/12/25 lorazepam 0.5 mg tablet 0.5 mg PO BEDTIME@1999 MODERATE 01/04/25 04/12/25 Anxiety polyethylene glycol 3350 17 17 g PO DAILY PRN Constipation 01/04/25 04/12/25 gram/dose oral powder (Miralax) budesonide 160 mcg-glycopyr 9 2 inh inhalation BID@0600,1800 02/05/25 04/12/25 mcg-formot 4.8 mcg/actuation HFA inhaler (Breztri Aerosphere) lorazepam 0.5 mg tablet 0.5 mg PO DAILY PRN Anxiety 02/05/25 04/12/25 roflumilast 500 mcg tablet 500 mcg PO DAILY@0602/05/25 04/12/25 (Daliresp) valsartan 40 mg tablet 40 mg PO DAILY@0602/05/25 04/12/25 verapamil 120 mg tablet 120 mg PO BID@06,199902/05/25 04/12/25 omeprazole 20 mg capsule,delayed 20 mg PO DAILY@0603/01/25 04/12/25 release prednisone 5 mg tablet 5 mg PO Q48H 03/01/25 04/12/25 acetaminophen 650 mg 1,300 mg PO Q8H PRN Pain 03/13/25 04/12/25 tablet,extended release magnesium oxide 400 mg PO DAILY@0600 03/13/25 04/12/25 melatonin 3 mg tablet 3 mg PO BEDTIME PRN Insomnia 04/08/25 04/12/25 oxycodone 5 mg tablet 5 mg PO Q6H PRN Severe Pain (Scale 04/08/25 04/12/25 Score 7-10) amoxicillin 500 mg capsule 500 mg PO TID@0600,1199,199904/12/25 04/12/25 Previous Rx's ?Medication ?Instructions ?Recorded nebulizer and compressor #1 ea 12/16/23 ipratropium 0.5 mg-albuterol 3 mg 3 ml inhalation Q4H PRN for 03/02/24 (2.5 mg base)/3 mL nebulization dyspnea #180 mL soln hydromorphone 2 mg tablet 2 mg PO Q6H #16 tabs 04/13/25 (Dilaudid) Allergies Allergy/AdvReac Type Severity Reaction Status Date / Time Iodinated Contrast Media (IV Allergy Intermediate HIVES Verified 04/16/25 05:08 CONTRAST) latex (LATEX) Allergy Unknown RASH Verified 04/16/25 05:08 adhesive tape Allergy Rash Verified 04/16/25 05:08 morphine (MORPHINE) AdvReac Unknown VOMITING Verified 04/16/25 05:08 Review of Systems Review of Systems: as per HPI, full review of systems performed and negative but for the above mentioned pertinent positives and negatives. [facility] Past Medical History Medical History Chronic lung disease Morbid obesity Pulmonary nodules Diastolic heart failure Chronic lung disease Hypoxia Panic disorder Hypertension Chronic hypercapnic respiratory failure Aortic stenosis Asthma Hypogammaglobulinemia Smoker JUANITO (obstructive sleep apnea) Elevated troponin COPD (chronic obstructive pulmonary disease) Trigeminal neuralgia Mixed hyperlipidemia Peripheral neuropathy Tobacco use disorder Mood disorder Surgical History History of esophagogastroduodenoscopy (EGD) History of colonoscopy History of lumbar discectomy History of tubal ligation History of excision of mass History of shoulder surgery Social History Social History Household Members: Spouse Household Members Other:: dog Housing: Condominium Do you presently have visiting nurse or other home services: Yes ([facility]) Alcohol intake: current Alcohol intake frequency: holidays/special occasions only Alcohol type: hard liquor Comment: pt refusing bed alarm Patient Tobacco Use Status: Former Tobacco user Tobacco use type: Cigarette Cigarette Packs Per Day: 4 Cigarettes Per Day: 80.0 Years Smoked: 40 e-Cigarette/Vaping Use: Never Used Second Hand Smoke Exposure: No Substance Use Type: Marijuana Advance Directives: Yes Advance Directives on File: Yes Advance Directives Date on File: 03/09/23 Do you have a plan to hurt others: No Plan Patient : No service: No Physical Exam Exam: Exam: GENERAL: Ill-appearing, chronically ill-appearing, severe respiratory distress. SKIN: Normal skin color for ethnicity, warm, dry, no rashes noted. HEENT: Normocephalic, atraumatic, no stridor, EOMI. NECK: Soft, supple, full ROM, midline structures nontender, no step-offs, no deformities, no lymphadenopathy. CHEST: Heart regular tachycardia, barrel chest, symmetric chest rise and fall. PULMONARY: Diffuse, faint, wheezes throughout, tachypnea, diminished air movement bilaterally, severe respiratory distress. ABDOMINAL: Soft,nontender, quiet bowel sounds in all quadrants. : Deferred. MUSCULOSKELETAL: Normal tone, full range of motion, no deformities, no peripheral edema. NEURO: Alert and oriented to person, CN II through XII intact, no focal neurologic deficits. PSYCHIATRIC: Anxious affect, appropriate demeanor. Vital Signs: Vital Signs: Last Vital Signs Pulse 80 04/16/25 07:09 Resp 18 04/16/25 07:09 BP 113/55 L 04/16/25 07:09 Pulse Ox 91 L 04/16/25 07:09 O2 Del Method BiPAP 04/16/25 07:09 FiO2 35 04/16/25 07:09 BMI result Body Mass Index 35.2 Medications Administered Discontinued Medications Generic Name Dose Route Start Last Admin Trade Name Freq PRN Reason Stop Dose Admin Albuterol Sulfate 5 mg/ 0 mg 04/16/25 05:30 04/16/25 05:38 Albuterol/Ipratropium 3 ml INHALE 04/16/25 05:31 3 each ONCE ONE Administration Magnesium Sulfate 2 gm in 50 mls @ 150 mls/hr 04/16/25 05:17 04/16/25 05:50 Magnesium Sulfate/H2o IV 04/16/25 05:36 Infused ONCE ONE Infusion Methylprednisolone Sodium Succinate 60 mg 04/16/25 05:17 04/16/25 05:31 Methylprednisolone Sod Succ 125 Mg/2 Ml Vial IVPUSH 04/16/25 05:18 60 mg ONCE ONE Administration Medical Decision Making Medical Decision Making MDM Narrative: Patient presents in respiratory distress. Differential diagnosis includes flash pulmonary edema, COPD exacerbation, pneumothorax, pneumonia, ACS, pulmonary embolism, metabolic acidosis, among many others. The serious nature of the patient's symptoms makes this presentation complex, with potential for significant, worsening morbidity and mortality without immediate treatment/intervention. Patient placed on BiPAP immediately upon arrival to the emergency department. Her work of breathing is extremely labored. We will initiate magnesium, steroids, bronchodilators. 7:17 AM 04/16/2025 (Dr. Natasha Giordano, Osmel.O.) patient not significantly acidotic but she does have some hypercarbia, suggesting chronic metabolic compensation. Indeed, the patient was just discharged from this hospital the day before yesterday. She has no infectious symptoms. This is purely acute on chronic respiratory failure. It is unclear what her trigger is today. We will repeat blood gas, try to wean her from the BiPAP and likely admit for further care and evaluation. 8:08 AM 04/16/2025 (Osmel Gonzales.O.) repeat blood gas does show some improvement in her hypercarbia though minimal. Plan for trial off of BiPAP, admission to hospitalist for further care and evaluation. Differential Diagnosis Differential Diagnoses: The differential diagnosis associated with the presentation includes (As above) Admission/Observation Consideration of admission/observation: Escalation of care including admission/observation considered Consult Healthcare Provider Management of the patient was discussed with: Hospitalist Lab Data [facility] Lab Attestation statement: I reviewed the patient's lab results. 04/16/25 05:27 04/16/25 05:28 Labs: Lab Results 04/16/25 04/16/25 04/16/25 Range/Units 05:27 05:28 05:33 WBC 9.3 (4.8-10.8) X10*3/uL RBC 3.64 L (4.20-5.50) X10*6/uL Hgb 11.1 L (12.0-16.0) g/dl Hct 35.7 L (37.0-47.0) % MCV 98.1 H (80.0-98.0) fL MCH 30.5 (27.0-33.0) pg MCHC 31.1 (31.0-35.0) g/dl RDW 15.0 (11.0-16.0) % Plt Count 393 (160-400) X10*3/uL MPV 9.2 L (9.4-12.3) fL Immature Gran % (Auto) 0.6 H (0.0-0.4) % Neut % (Auto) 68.8 (45-73) % Lymph % (Auto) 20.0 (20-40) % [place] % (Auto) 8.6 (2-11) % Eos % (Auto) 1.7 (0-4) % Baso % (Auto) 0.3 (0-2) % Lymph # (Auto) 1.9 (1.2-4.9) X10*3/uL [place] # (Auto) 0.8 (0.1-1.2) X10*3/uL Eos # (Auto) 0.2 (0.0-0.4) X10*3/uL Baso # (Auto) 0.0 (0.0-0.2) X10*3/uL Abs Immat Gran (auto) 0.06 H (0.00-0.03) X10*3/uL Absolute Neuts (auto) 6.4 (2.0-8.3) x10*3/uL Absolute Nucleated RBC 0.020 H (0.0-0.012) X10*3/uL Nucleated RBC % (auto) 0.2 (0.0-0.2) /100WBC VBG pH 7.37 (7.32-7.43) VBG pCO2 64 mmHg VBG pO2 198 mmHg VBG HCO3 37 H (22-26) mmol/L VBG O2 Saturation 99.0 % VBG Base Excess 10.3 mmol/L Sodium 142 (135-145) mmol/L Potassium 4.3 (3.3-5.1) mmol/L Chloride 102 (96-108) mmol/L Carbon Dioxide 32 H (22-29) mmol/L Anion Gap 12 (12-20) BUN 11 (9-16) mg/dL Creatinine 0.72 (0.5-1.4) mg/dL Estim Creat Clear Calc 76.7 Estimated GFR > 60 Random Glucose 141 H (60-115) mg/dL Calcium 10.1 D (8.4-10.2) mg/dL Magnesium 2.1 (1.6-2.6) mg/dL Total Bilirubin 0.2 (0.0-1.0) mg/dL AST 24 (5-31) U/L ALT 17 (0-31) U/L Alkaline Phosphatase 67 (39-117) U/L Troponin I High Sens 9.5 (<3.5-17.0) ng/L NT-Pro-B Natriuret Pep 97.4 (<300) pg/mL Total Protein 6.6 (6.5-8.0) g/dL Albumin 4.0 (3.5-5.0) g/dL COVID-19 (SONAL) Negative (Negative) COVID-19 Clin Com See Note Influenza Type A (DERREK) Negative (Negative) Influenza Type B (DERREK) Negative (Negative) Influenza A & B Note See Note 04/16/25 Range/Units 07:27 WBC (4.8-10.8) X10*3/uL RBC (4.20-5.50) X10*6/uL Hgb (12.0-16.0) g/dl Hct (37.0-47.0) % MCV (80.0-98.0) fL MCH (27.0-33.0) pg MCHC (31.0-35.0) g/dl RDW (11.0-16.0) % Plt Count (160-400) X10*3/uL MPV (9.4-12.3) fL Immature Gran % (Auto) (0.0-0.4) % Neut % (Auto) (45-73) % Lymph % (Auto) (20-40) % [place] % (Auto) (2-11) % Eos % (Auto) (0-4) % Baso % (Auto) (0-2) % Lymph # (Auto) (1.2-4.9) X10*3/uL [place] # (Auto) (0.1-1.2) X10*3/uL Eos # (Auto) (0.0-0.4) X10*3/uL Baso # (Auto) (0.0-0.2) X10*3/uL Abs Immat Gran (auto) (0.00-0.03) X10*3/uL Absolute Neuts (auto) (2.0-8.3) x10*3/uL Absolute Nucleated RBC (0.0-0.012) X10*3/uL Nucleated RBC % (auto) (0.0-0.2) /100WBC VBG pH 7.40 (7.32-7.43) VBG pCO2 61 mmHg VBG pO2 81 mmHg VBG HCO3 38 H (22-26) mmol/L VBG O2 Saturation 97.0 % VBG Base Excess 11.5 mmol/L Sodium (135-145) mmol/L Potassium (3.3-5.1) mmol/L Chloride (96-108) mmol/L Carbon Dioxide (22-29) mmol/L Anion Gap (12-20) BUN (9-16) mg/dL Creatinine (0.5-1.4) mg/dL Estim Creat Clear Calc Estimated GFR Random Glucose (60-115) mg/dL Calcium (8.4-10.2) mg/dL Magnesium (1.6-2.6) mg/dL Total Bilirubin (0.0-1.0) mg/dL AST (5-31) U/L ALT (0-31) U/L Alkaline Phosphatase (39-117) U/L Troponin I High Sens (<3.5-17.0) ng/L NT-Pro-B Natriuret Pep (<300) pg/mL Total Protein (6.5-8.0) g/dL Albumin (3.5-5.0) g/dL COVID-19 (SONAL) (Negative) COVID-19 Clin Com Influenza Type A (DERREK) (Negative) Influenza Type B (DERREK) (Negative) Influenza A & B Note Independent Interpretation I performed an independent interpretation of an: EKG Interpretation: My independent interpretation of the ECG reveals normal sinus tachycardia with rate of 111, normal axis, normal intervals, no ST elevations or depressions to suggest ischemic changes, relatively unchanged from previous on 04/11/2025. Radiology Impression Discussion of test interpretation with radiology: I have reviewed the radiologist's reading. Independent Historian Clinical information obtained from an independent historian. History obtained from or confirmed by: EMS External Record Review External record reviewed: Inpatient record Chronic Conditions Patient?s care impacted by: Other (COPD) Critical Care Time Critical Care Time Critical Care Time: Yes Total Critical Care Time: 35 Attestation: CRITICAL CARE TIME: 35 minutes of critical care time was spent in direct patient care at the bedside or in the immediate area with this patient. Critical care was necessary to treat or prevent imminent or life-threatening deterioration of the following conditions acute hypoxic respiratory failure due to COPD exacerbation, chronic lung disease. This patient is high risk for decompensation and/or . This time was spent assessing and managing the patient, interpreting labs and imaging, coordinating care with other medical providers, gathering history from either the patient, their representatives, EMS or chart review, and discussing management with admitting team. Discharge Plan Discharge Clinical Impression: Acute on chronic respiratory failure with hypoxia and hypercapnia Patient Disposition: Admitted As Inpatient Print Language: Upper Sorbian
[2025-04-16 05:45] LABS: COVID-19 Test Negative (Negative); IDNOW Serial# 58CA691E
[2025-04-16 05:48] LABS: Alanine Aminotransferase 17 U/L (0-31); Albumin Level 4.0 g/dL (3.5-5.0); Alkaline Phosphatase 67 U/L (39-117); Anion Gap 12 (12-20); Aspartate Amino Transferase 24 U/L (5-31); Blood Urea Nitrogen 11 mg/dL (9-16); Calcium 10.1 mg/dL (8.4-10.2); Carbon Dioxide 32 mmol/L (22-29); Chloride 102 mmol/L (96-108); Creatinine Clr Calc Pharmacy 76.7; Estimated Glomerular Filt Rate > 60; Magnesium 2.1 mg/dL (1.6-2.6); Potassium 4.3 mmol/L (3.3-5.1); Sodium 142 mmol/L (135-145); Total Protein 6.6 g/dL (6.5-8.0)
[2025-04-16 05:54] LABS: IDNOW Serial# 55D5AD1C; Influenza B2 Negative (Negative)
[2025-04-16 06:00] LABS: Troponin-I High Sensitivity 9.5 ng/L (<3.5-17.0)
[2025-04-16 06:06] LABS: NT Pro B Type Natriuretic Pept 97.4 pg/mL (<300)
--- OUTSIDE RECORDS SUMMARY | 2025-04-16 07:11 | XMS_ITS | Encounter Summary ---
Author Organization [facility] Address [address] [address] Phone Care Team Providers Care Security Site Supervisor Name Role Phone Jn Cardoza MD Unavailable Denys Henriquez MD Unavailable Antione Segura PA-C Primary Care Provider Rhett Cortez MD Unavailable Encounter Details Date Type Department Care Team (Late st Contact Info) Description 03/20/2025 Home Health Resumption of Care Planning [facility] [address] [place] [phone] Koki Simons RN [address] [place] [address] [email or web address] Social History Tobacco Use [...] Description 04/16/2025 2:00 PM EST Office Visit [facility] Internal Medicine [address] [place] [address] Antione Segura PA-C [address] [place] [address] 04/16/2025 3:00 PM EST Appointment [facility] [address] [place] [phone] Kennedy, Thao L [address] [place] [phone] 04/18/2025 1:30 AM EST Appointment [facility] [address] [place] [phone] Shakira Hand, RN [address] [place] [address] 04/19/2025 2:00 AM EST Appointment [facility] [address] [place] [phone] Kennedy, Thao L [address] [place] [phone] 04/23/2025 2:00 AM EST Appointment [facility] [address] [place] [phone] Kennedy, Thao L [address] [place] [phone] 04/24/2025 9:40 AM EST Office Visit [facility] Internal Medicine [address] [place], [place] [phone] Antione Segura PA-C [address] [place] [address] 04/25/2025 1:30 AM EST Appointment [facility] [address] [place] [phone] Shakira Hand, HUA [address] [place] [address] [email or web address] 06/25/2025 9:30 AM EST Telemedicine [facility] Neurology [address] [place] [address] Jn Cardoza MD [address] [place] [phone] documented as of this encounter Visit Diagnoses Not on filedocumented in this encounter Additional Health Concerns Assessment Noted Time PHQ-9 Depression Total Score: 15 025 9:44 AM EDT PHQ-2 Depression Total Score: 4 02/01/20 25 9:44 AM EDT documented as of this encounter Care Teams Security Site Supervisor Relationship Specialty Start Date End Date Antione Segura PA-C [address] [place] [address] PCP - General Physician M[employer] And Service Line Inspector 10/12/24 Jn Cardoza MD [address] [place] [phone] Neurology 02/03/24 Denys Henriquez MD [address] [place] [address] [place] [address] Pulmonary Disease 02/03/24 Rhett Cortez MD [address] [place] [address] [email or web address] Insurance Assigned Provider 01/20/25 documented as of this encounter Additional Source Comments The information contained in this document represents components of the legal health record. It is not the complete legal health record.[facility]
--- OUTSIDE RECORDS SUMMARY | 2025-04-16 07:11 | XMS_ITS | Encounter Summary ---
Author Organization [facility] Address [address] [address] Phone Care Team Providers Care It Sales Representative Name Role Phone Jn Cardoza MD Unavailable Denys Henriquez MD Unavailable [phone] Liyah Patterson MD Unavailable Antione Segura-C Primary Care Provider [phone] Rhett Cortez MD Unavailable Encounter Details Date Type Department Care Team (Late st Contact Info) Description 01/09/2025 Home Health [facility] [address] [place] [phone] Koki Simons, HUA [address] [place] [address] [email or web address] Social History Tobacco Use Types Packs/Day Years [...] Description 04/16/2025 2:00 PM EST Office Visit [facility] Internal Medicine [address] [place], [place] [phone] Antione Segura PA-C [address] [place] [address] 04/16/2025 3:00 PM EST Appointment [facility] [address] [place] [phone] Kennedy, Thao L [address] [place] [phone] [email or web address] 04/18/2025 1:30 AM EST Appointment [facility] [address] [place] [phone] Shakira Hand, HUA [address] [place] [address] [email or web address] 04/19/2025 2:00 AM EST Appointment [facility] [address] [place] [phone] Kennedy, Thao L [address] [place] [address] [email or web address] 04/23/2025 2:00 AM EST Appointment [facility] [address] [place] [phone] Kennedy, Thao L [address] [place] [phone] 04/24/2025 9:40 AM EST Office Visit [facility] Internal Medicine [address] [place] [address] Antione Segura PA-C [address] [place] [address] [email or web address] 04/25/2025 1:30 AM EST Appointment [facility] [address] [place] [phone] Shakira Hand RN [address] [place] [phone] 06/25/2025 9:30 AM EST Telemedicine [facility] Neurology [address] [place] [address] Jn Cardoza MD [address] [place] [phone] documented as of this encounter Visit Diagnoses Not on filedocumented in this encounter Additional Health Concerns Assessment Noted Time PHQ-9 Depression Total Score: 20 12/27/ 025 9:08 PM EDT PHQ-2 Depression Total Score: 6 12/28/19 25 9:08 PM EDT documented as of this encounter Care Teams It Sales Representative Relationship Specialty Start Date End Date Antione Segura PA-C [address] [place] [address] PCP - General Physician [employer] 10/12/24 Jn Cardoza MD [address] [place] [phone] Neurology 02/03/24 Denys Henriquez MD [address] [place] [address] [place] [address] Pulmonary Disease 02/03/24 Liyah Patterson MD [address] [place] [phone] [email or web address] Insurance Assigned Provider 02/19/24 01/20/25 Rhett Cortez MD [address] [place] [address] [email or web address] Insurance Assigned Provider 01/20/25 documented as of this encounter Additional Source Comments The information contained in this document represents components of the legal health record. It is not the complete legal health record.[facility]
--- OUTSIDE RECORDS SUMMARY | 2025-04-16 07:11 | XMS_ITS | Encounter Summary ---
Author Organization [facility] Address [address] [place] [address] [place] [address] Phone Care Team Providers Care Workers Compensation Specialist Name Role Phone Lang Germain MD Unavailable Jennifer Duke DIETARY AID Primary Care Provider Sirisha Huertas POST EXCHANGE MANAGER Primary Care Provider Jn Cardoza MD Unavailable Denys Henriquez MD Unavailable Liyah Patterson MD Unavailable Liyah Patterson MD Primary Care Provider Antione Segura PA-C Primary Care Provider Rhett Cortez MD Unavailable Encounter Details Date Type Department Care Team (Late st Contact Info) Description 11/11/2021 Transcribe Orders [facility] PFT Lab 30 [place] [address] Jennifer Duke, DIETARY AID [address] [facility] [address] [place] [address] [email or web address] Social History Tobacco Use Types Packs/Day Years [...] Description 04/16/2025 2:00 PM EST Office Visit [facility] Internal Medicine 40 [place] [address] Antione Segura PA-C 40 [place] [address] [email or web address] 04/16/2025 3:00 PM EST Appointment [facility] [address] [place] [phone] Thao Kennedy [address] [place] [phone] [email or web address] 04/18/2025 1:30 AM EST Appointment [facility] [address] [place] [phone] Shakira Hand, HUA [address] [place] [address] 04/19/2025 2:00 AM EST Appointment [facility] [address] [place] [phone] Thao Kennedy 30 [place] [address] 04/23/2025 2:00 AM EST Appointment [facility] [address] [place] [phone] Kennedy Thao Jose 30 [place] [address] [email or web address] 04/24/2025 9:40 AM EST Office Visit [facility] Internal Medicine 40 [place] [address] Antione Segura PA-C 40 [place] [address] [email or web address] 04/25/2025 1:30 AM EST Appointment [facility] 30 [place], [place] [phone] Shakira Hand RN 168 [place] [address] [email or web address] 06/25/2025 9:30 AM EST Telemedicine [facility] Neurology 22 [place] [address] Jn Cardoza MD 22 [facility], 2nd [place] [address] [email or web address] documented as of this encounter Visit Diagnoses Not on filedocumented in this encounter Additional Health Concerns Assessment Noted Time PHQ-2 Depression Total Score: 0 05/25/20 9:02 AM EST documented as of this encounter Care Teams Workers Compensation Specialist Relationship Specialty Start Date End Date Jennifer Duke, [place] 40 [place] [address] PCP - General Family Medicine 01/31/20 06/22/23 Sirisha Huertas FNP 15 [facility] Subhash. 201 [place] [address] PCP - General Nurse Practitioner 06/23/23 08/03/24 Liyah Patterson MD [address] [place] [address] [email or web address] PCP - General Family Medicine 08/04/24 10/11/24 Antione Segura PA-C [address] [place] [address] [email or web address] PCP - General Physician Employee Placement Specialist 10/12/24 Lang Germain MD [address] [place] [address] Insurance Assigned Provider 09/18/23 02/19/24 Jn Cardoza MD 22 [facility], 2nd [place] [address] [email or web address] Neurology 02/03/24 Denys Henriquez MD [address] [place] [address] [place] [address] Pulmonary Disease 02/03/24 Liyah Patterson MD [address] [place] [address] [email or web address] Insurance Assigned Provider 02/19/24 01/20/25 Rhett Cortez MD [address] [place] [address] [email or web address] Insurance Assigned Provider 01/20/25 documented as of this encounter Additional Source Comments The information contained in this document represents components of the legal health record. It is not the complete legal health record.[facility]
--- OUTSIDE RECORDS SUMMARY | 2025-04-16 07:11 | XMS_ITS | Encounter Summary ---
Author Organization [facility] Address [address] [place] [address] Phone Care Team Providers Care Frame Aligner Name Role Phone Jn Cardoza MD Unavailable Denys Henriquez MD Unavailable Antione Segura PA-C Primary Care Provider Rhett Cortez MD Unavailable Reason for Visit * Reason Onset Date Comments Care Coordination 04/13/2025 Encounter Details Date Type Department Care Team (Late st Contact Info) Description 04/13/[address] [place] [address] Vilma Velázquez [address] [place] [address] [email or web address] Care Coordination Social History Tobacco Use Types [...] high school, GED, job training, learning the Palauan language, technical skills, or developing parenting skills)? [...] as of this encounter Progress Notes * Vilma Velázquez - 04/13/2025 3:37 PM EDT Navigator called patient as gateway message was not read. Patient answered however she was beingdischarged from hospital and was not able to go over options. Navigator informed patient she will call back in two weeks to go over options and patient agreed. Vilma Velázquez Behavioral Health Navigator [facility] documented in this encounter Plan of Treatment Upcoming Encounters Date Type Department Care Team (Late st Contact Info) Description 04/16/2025 2:00 PM EST Office Visit [facility] Internal Medicine 40 [place] [address] Antione Segura PA-C 40 [place] [address] 04/16/2025 3:00 PM EST Appointment [facility] [address] [place] [address] Thao Kennedy [address] [place] [address] 04/18/2025 1:30 AM EST Appointment [facility] [address] [place] [address] Shakira Hand RN 168 [place] [address] 04/19/2025 2:00 AM EST Appointment [facility] 30 [place] [phone] Thao Kennedy L 30 [place] [address] 04/23/2025 2:00 AM EST Appointment [facility] [address] [place] [phone] Thao Kennedy L 30 [place] [address] 04/24/2025 9:40 AM EST Office Visit [facility] Internal Medicine 40 [place] [address] Antione Segura PA-C [address] [place] [address] 04/25/2025 1:30 AM EST Appointment [facility] [address] [place] [phone] Shakira Hand, HUA [address] [place] [address] 06/25/2025 9:30 AM EST Telemedicine [facility] Neurology [address] [place] [address] Jn Cardoza MD [address] [place] [address], [address] [place] [address] documented as of this encounter Visit Diagnoses Not on filedocumented in this encounter Additional Health Concerns Assessment Noted Time PHQ-9 Depression Total Score: 23 025 3:04 PM EDT PHQ-2 Depression Total Score: 5 03/21/20 25 3:04 PM EDT documented as of this encounter Care Teams Frame Aligner Relationship Specialty Start Date End Date Antione Segura PA-C [address] [place] [address] [email or web address] PCP - General Physician Loss Prevention Detective 10/12/24 Jn Cardoza MD [address] [place] [address], 2nd [place] [address] [email or web address] Neurology 02/03/24 Denys Henriquez MD [address] [place] [address] [place] [address] Pulmonary Disease 02/03/24 Rhett Cortez MD [address] [place] [phone] [email or web address] Insurance Assigned Provider 01/20/25 documented as of this encounter Additional Source Comments The information contained in this document represents components of the legal health record. It is not the complete legal health record.[facility]
--- OUTSIDE RECORDS SUMMARY | 2025-04-16 07:11 | XMS_ITS | Encounter Summary ---
Author Organization [facility] Address [address] [place] [address] Phone Care Team Providers Care Patient Day Coordinator Name Role Phone Jn Cardoza MD Unavailable Denys Henriquez MD Unavailable [phone] Antione Segura PA-C Primary Care Provider Rhett Cortez MD Unavailable Reason for Visit * Reason Onset Date Comments PFT 01/24/2025 Encounter Details Date Type Department Care Team (Late st Contact Info) Description 01/24/2025 Telephone [facility] Internal Medicine 40 [place], [place] [phone] Antione Segura PA-C 40 [place] [address] [email or web address] PFT Social History Tobacco Use Types Packs/Day [...] Document(s) requested:all PFT testing with [employer] and [facility] CSS Agent (Please do not reply to this user, as this inbox is not monitored. Thank you.) Thank you. documented in this encounter Plan of Treatment Upcoming Encounters Date Type Department Care Team (Late st Contact Info) Description 04/16/2025 2:00 PM EST Office Visit [facility] Internal Medicine 40 [place] [address] Antione Segura PA-C 40 [place] [address] 04/16/2025 3:00 PM EST [email or web address] 30 [place] [phone] Thao Kennedy 30 [place] [address] 04/18/2025 1:30 AM EST [email or web address] 30 [place] [phone] Shakira Hand RN 168 [place] [address] 04/19/2025 2:00 AM EST Appointment [facility] [address] [place] [phone] Kennedy, Thao L 30 [place] [address] 04/23/2025 2:00 AM EST Appointment [facility] [address] [place] [phone] Kennedy, Thao L [address] [place] [phone] 04/24/2025 9:40 AM EST Office Visit [facility] Internal Medicine 40 [place] [address] Antione Segura PA-C 40 [place] [address] 04/25/2025 1:30 AM EST Appointment [facility] [address] [place] [phone] Shakira Hand RN 168 [place] [address] 06/25/2025 9:30 AM EST Telemedicine [facility] Neurology [address] [place] [address] Jn Cardoza MD 22 [facility], [address] [place] [address] [email or web address] documented as of this encounter Visit Diagnoses Not on filedocumented in this encounter Additional Health Concerns Assessment Noted Time PHQ-9 Depression Total Score: 20 025 9:08 PM EDT PHQ-2 Depression Total Score: 6 07/16/20 25 9:08 PM EDT documented as of this encounter Care Teams Patient Day Coordinator Relationship Specialty Start Date End Date Antione Segura PA-C 40 [place] [address] [email or web address] PCP - General Physician Telephone Directory Distributor Driver 10/12/24 Jn Cardoza MD [address] [place] [address], 2nd [place] [address] Neurology 02/03/24 Denys Henriquez MD [address] [place] [address] [place] [address] Pulmonary Disease 02/03/24 Rhett Cortez MD [address] [place] [address] [email or web address] Insurance Assigned Provider 01/20/25 documented as of this encounter Additional Source Comments The information contained in this document represents components of the legal health record. It is not the complete legal health record.[facility]
--- OUTSIDE RECORDS SUMMARY | 2025-04-16 07:11 | XMS_ITS | Encounter Summary ---
Author Organization [facility] Address [address] [place] [address] Phone Care Team Providers Care Yardage Control Operator Name Role Phone Jn Cardoza MD Unavailable Denys Henriquez MD Unavailable Antione Segura PA-C Primary Care Provider Rhett Cortez MD Unavailable Encounter Details Date Type Department Care Team (Late st Contact Info) Description 04/12/2025 Orders Only [facility] Internal Medicine 40 [place] [address] Provider, MD Omar [address] [place] [address] Social History Tobacco Use Types Packs/Day [...] Description 04/16/2025 2:00 PM EST Office Visit [facility] Internal Medicine 40 [place] [address] Antione Segura PA-C 40 [place] [address] [email or web address] 04/16/2025 3:00 PM EST Appointment [facility] [address] [place] [phone] Kennedy, Thao [address] [address] 04/18/2025 1:30 AM EST Appointment [facility] [address] [place] [phone] Shakira Hand, HUA 168 [place] [address] 04/19/2025 2:00 AM EST Appointment [facility] [address] [place] [phone] Kennedy, Thao L 30 [place] [address] 04/23/2025 2:00 AM EST Appointment [facility] [address] [place] [phone] Kennedy, Thao L [address] [place] [address] 04/24/2025 9:40 AM EST Office Visit [facility] Internal Medicine 40 [place] [address] Antione Segura PA-C 40 [place], [place] 04/25/2025 1:30 AM EST Appointment [facility] 30 [place], [place] [phone] Shakira Hand, HUA [address] [place] [address] 06/25/2025 9:30 AM EST Telemedicine [facility] Neurology 22 [place] [address] Jn Cardoza MD [address] [place] [address] documented as of this encounter Procedures Procedure Name Priority Date/Time Associated Diagnosis Comments OUTSIDE XR CHEST REPORT ONLY Routine 04/11/2025 8:35 AM EDT documented in this encounter Results * Outside XR??Chest Report Only (04/11/2025 8:35 AM EDT) us Historical Provider MD DAWKINS XR CHEST Final Res ult documented in this encounter Visit Diagnoses Not on filedocumented in this encounter Additional Health Concerns Assessment Noted Time PHQ-9 Depression Total Score: 23 025 3:04 PM EDT PHQ-2 Depression Total Score: 5 03/21/20 25 3:04 PM EDT documented as of this encounter Care Teams Yardage Control Operator Relationship Specialty Start Date End Date Antione Segura PA-C [address] [place], [place] PCP - General Physician Tumbler Drier Operator 10/12/24 Jn Cardoza MD [address] [place] [address] [email or web address] Neurology 02/03/24 Denys Henriquez MD [address] [place] [address] [place] [address] Pulmonary Disease 02/03/24 Rhett Cortez MD [address] [place] [address] [email or web address] Insurance Assigned Provider 01/20/25 documented as of this encounter Additional Source Comments The information contained in this document represents components of the legal health record. It is not the complete legal health record.[facility]
--- OUTSIDE RECORDS SUMMARY | 2025-04-16 07:11 | XMS_ITS | Encounter Summary ---
Author Organization [facility] Address [address] [place] [address] Phone Care Team Providers Care Surgical Product Sales Consultant Name Role Phone Jn Cardoza MD Unavailable Denys Henriquez MD Unavailable [phone] Antione Segura PA-C Primary Care Provider Rhett Cortez MD Unavailable Encounter Details Date Type Department Care Team (Late st Contact Info) Description 04/12/2025 Documentation [facility] Internal Medicine 40 [place], [place] [phone] Antione Segura PA-C 40 [place], [place] [phone] [email or web address] Social History Tobacco Use Types Packs/Day Years [...] Progress Notes * Gwen Jennings CMA - 04/12/2025 1:07 PM EDT HM updated documented in this encounter Plan of Treatment Upcoming Encounters Date Type Department Care Team (Late st Contact Info) Description 04/16/2025 2:00 PM EST Office Visit [facility] Internal Medicine 40 [place] [address] Antione Segura PA-C 40 [place] [address] [email or web address] 04/16/2025 3:00 PM EST Appointment [facility] [address] [place] [phone] [facility], [address] [address] 04/18/2025 1:30 AM EST Appointment [facility] [address] [place] [address] Shakira Hand, HUA 168 [place] [address] 04/19/2025 2:00 AM EST Appointment [facility] [address] [place] [phone] Kennedy, Thao L [address] [place] [address] 04/23/2025 2:00 AM EST Appointment [facility] 30 [place] [phone] Thao Kennedy 30 [place] [address] [email or web address] 04/24/2025 9:40 AM EST Office Visit [facility] Internal Medicine 40 [place] [address] Antione Segura PA-C 40 [place] [address] 04/25/2025 1:30 AM EST Appointment [facility] [address] [place] [phone] Shakira Hand RN [address] [place] [phone] [email or web address] 06/25/2025 9:30 AM EST Telemedicine [facility] Neurology [address] [place] [address] Jn Cardoza MD [address] [place] [address] [email or web address] documented as of this encounter Procedures Procedure Name Priority Date/Time Associated Diagnosis Comments OUTSIDE POTASSIUM LEVEL Routine 04/11/2025 OUTSIDE SERUM CREATININE LEVEL Routine 04/11/2025 OUTSIDE ALT LEVEL Routine 04/11/2025 documented in this encounter Results * Outside Potassium Level (04/11/2025) Pathologist [facility] Potassium level - External 4.0 3.4 - 5.0 mmol/L us Historical Provider LAB BLOOD ORDERABLES Mariya l Result * Outside ALT Level (04/11/2025) ALT - External 20 5 - 30 U/L Historical Provider LAB BLOOD ORDERABLES Mariya l Result * (ABNORMAL) Outside Serum Creatinine Level (04/11/2025) Creatinine, serum - External 0.68(A) 0.8 - 1.3 mg/dL us Historical Provider LAB BLOOD ORDERABLES Mariya l Result documented in this encounter Visit Diagnoses Not on filedocumented in this encounter Additional Health Concerns Assessment Noted Time PHQ-9 Depression Total Score: 23 025 3:04 PM EDT PHQ-2 Depression Total Score: 5 03/21/20 25 3:04 PM EDT documented as of this encounter Care Teams Surgical Product Sales Consultant Relationship Specialty Start Date End Date Antioen Segura PA-C 40 [place] [address] PCP - General Physician Home Health Travel Ot 10/12/24 Jn Cardoza MD 22 [facility], 2nd [place] [address] Neurology 02/03/24 Denys Henriquez MD [address] [place] [address] [place] [address] Pulmonary Disease 02/03/24 Rhett Cortez MD 40 [place] [address] Insurance Assigned Provider 01/20/25 documented as of this encounter Additional Source Comments The information contained in this document represents components of the legal health record. It is not the complete legal health record.[facility]
--- OUTSIDE RECORDS SUMMARY | 2025-04-16 07:11 | XMS_ITS | Encounter Summary ---
Author Organization [facility] Address [address] [address] Phone Care Team Providers Care Instructional Technology Coordinator Name Role Phone Jn Cardoza MD Unavailable Denys Henriquez MD Unavailable Antione Segura PA-C Primary Care Provider [phone] Rhett Cortez MD Unavailable Encounter Details Date Type Department Care Team (Late st Contact Info) Description 04/15/2025 Home Health Resumption of Care Planning [facility] 30 [place] [phone] Dennise Rodriguez, HUA [address] [place] [address] [email or web address] Social History Tobacco [...] Description 04/16/2025 2:00 PM EST Office Visit [facility] Internal Medicine 40 [place] [address] Antione Segura PA-C 40 [place] [address] [email or web address] 04/16/2025 3:00 PM EST Appointment [facility] [address] [place] [phone] Kennedy, Thao L [address] [place] [address] [email or web address] 04/18/2025 1:30 AM EST Appointment [facility] [address] [place] [phone] Shakira Hand, RN [address] [place] [address] 04/19/2025 2:00 AM EST Appointment [facility] [address] [place] [phone] Kennedy, Thao L 30 [place] [address] [email or web address] 04/23/2025 2:00 AM EST Appointment [facility] [address] [place] [phone] Kennedy, Thao L [address] [place] [phone] [email or web address] 04/24/2025 9:40 AM EST Office Visit [facility] Internal Medicine 40 [place], [place] [phone] Antione Segura PA-C 40 [place] [address] 04/25/2025 1:30 AM EST Appointment [facility] 30 [place] [phone] Shakira Hand, HUA [address] [place] [phone] 06/25/2025 9:30 AM EST Telemedicine [facility] Neurology 22 [place] [address] Jn Cardoza MD [address] [place] [address] documented as of this encounter Visit Diagnoses Not on filedocumented in this encounter Additional Health Concerns Assessment Noted Time PHQ-9 Depression Total Score: 23 025 3:04 PM EDT PHQ-2 Depression Total Score: 5 03/21/20 25 3:04 PM EDT documented as of this encounter Care Teams Instructional Technology Coordinator Relationship Specialty Start Date End Date Antione Segura PA-C 40 [place] [address] PCP - General Physician [employer] 10/12/24 Jn Cardoza MD [address] [place] [address] Neurology 02/03/24 Denys Henriquez MD [address] [place] [address] [place] [address] Pulmonary Disease 02/03/24 Rhett Cortez MD [address] [place] [address] [email or web address] Insurance Assigned Provider 01/20/25 documented as of this encounter Additional Source Comments The information contained in this document represents components of the legal health record. It is not the complete legal health record.[facility]
--- OUTSIDE RECORDS SUMMARY | 2025-04-16 07:11 | XMS_ITS | Encounter Summary ---
Author Organization [facility] Address [address] [place] [address] Phone Care Team Providers Care Arson Investigator Name Role Phone Lang Germain MD Unavailable Jennifer Duke DINNER COOK Primary Care Provider Sirisha Huertas LANDSCAPE GARDENER Primary Care Provider Jn Cardoza MD Unavailable Denys Henriquez MD Unavailable Liyah Patterson MD Unavailable Liyah Patterson MD Primary Care Provider [phone] Antione Segura PA-C Primary Care Provider Rhett Cortez MD Unavailable Encounter Details Date Type Department Care Team (Late st Contact Info) Description 11/27/2021 Procedure Pass [facility], [address] [place] [address] Social History Tobacco Use Types Packs/Day Years [...] EST Office Visit [facility] [place] Internal Medicine [address] [place] [address] Antione Segura PA-C 40 [place] [address] [email or web address] 04/16/2025 3:00 PM EST Appointment [facility] [address] [place] [address] Thao Kennedy L [address] [place] [address] 04/18/2025 1:30 AM EST Appointment [facility] [address] [place] [address] Shakira Hand, HUA [address] [place] [address] 04/19/2025 2:00 AM EST Appointment [facility] [address] [place] [address] Brent Thao L [address] [place] [address] 04/23/2025 2:00 AM EST Appointment [facility] [address] [place] [address] Brent Thao L 30 [place] [address] 04/24/2025 9:40 AM EST Office Visit [facility] Internal Medicine 40 [place] [address] Antione Segura PA-C 40 [place] [address] 04/25/2025 1:30 AM EST Appointment [facility] [address] [place] [address] Shakira Hand, HUA [address] [place] [address] 06/25/2025 9:30 AM EST Telemedicine [facility] Neurology 22 [place] [address] Jn Cardoza MD 22 [facility], 2nd [place] [address] documented as of this encounter Visit Diagnoses Not on filedocumented in this encounter Additional Health Concerns Assessment Noted Time PHQ-2 Depression Total Score: 0 05/25/20 19 9:02 AM EST documented as of this encounter Care Teams Arson Investigator Relationship Specialty Start Date End Date Jennifer Duke, DINNER COOK 40 [place] [address] PCP - General Family Medicine 01/31/20 06/22/23 Sirisha Huertas FNP [address] [place] [address] [email or web address] PCP - General Nurse Practitioner 06/23/23 08/03/24 Liyah Patterson MD [address] [place] [address] [email or web address] PCP - General Family Medicine 08/04/24 10/11/24 Antione Segura PA-C [address] [place] [address] [email or web address] PCP - General Physician Research Instrumentation Technician 10/12/24 Lang Germain MD [address] [place] [address] [email or web address] Insurance Assigned Provider 09/18/23 02/19/24 Jn Cardoza MD [address] [place] [address], 2nd [place] [address] [email or web address] Neurology 02/03/24 Denys Henriquez MD [address] [place] [address] [place] [address] Pulmonary Disease 02/03/24 Liyah Patterson MD [address] [place] [address] [email or web address] Insurance Assigned Provider 02/19/24 01/20/25 Rhett Cortez MD [address] [place] [address] [email or web address] Insurance Assigned Provider 01/20/25 documented as of this encounter Additional Source Comments The information contained in this document represents components of the legal health record. It is not the complete legal health record.[facility]
--- OUTSIDE RECORDS SUMMARY | 2025-04-16 07:11 | XMS_ITS | Encounter Summary ---
Author Organization [facility] Address [address] [place] [address] Phone Care Team Providers Care Tuber Machine Operator Helper Name Role Phone Charbel Webber MD Unavailable Alverto Gandara MD Unavailable Maikel Rawls MD Unavailable [phone] Jennifer Duke YARN SPOOLER Primary Care Provider Lang Germain MD Primary Care Provider Jennifer Duke YARN SPOOLER Primary Care Provider Lang Germain MD Unavailable Lang Germain MD Primary Care Provider Jennifer Duke YARN SPOOLER Primary Care Provider Lang Germain MD Primary Care Provider Jennifer Duke YARN SPOOLER Primary Care Provider Lang Germain MD Primary Care Provider Jennifer Duke YARN SPOOLER Primary Care Provider Lang Germain MD Primary Care Provider [place], Jennifer L YARN SPOOLER Unavailable [phone] Jennifer Duke YARN SPOOLER Primary Care Provider [phone] Lang Germain MD Primary Care Provider [phone] Jennifer Duke YARN SPOOLER Primary Care Provider [phone] Sirisha Huertas OPERATING ROOM ASSISTANT Primary Care Provider Jn Cardoza MD Unavailable Denys Henriquez MD Unavailable Liyah Patterson MD Unavailable Liyah Patterson MD Primary Care Provider [phone] Antione Segura PA-C Primary Care Provider [phone] Rhett Cortez MD Unavailable Encounter Details Date Type Department Care Team (Late st Contact Info) Description 09/13/2018 Procedure Pass [facility], [address] [address] Social History Tobacco Use Types Packs/Day Years [...] Description 04/16/2025 2:00 PM EST Office Visit [facility] Internal Medicine 40 [place], [place] [phone] Antione Segura PA-C 40 [place] [address] 04/16/2025 3:00 PM EST Appointment [facility] 30 [place] [address] Kennedy, Thao L 30 [place] [address] 04/18/2025 1:30 AM EST Appointment [facility] [address] [place] [phone] Shakira Hand, HUA 168 [place] [address] 04/19/2025 2:00 AM EST Appointment [facility] 30 [place] [address] Kennedy, Thao L 30 [place] [address] 04/23/2025 2:00 AM EST Appointment [facility] 30 [place] [address] Kennedy, Thao L [address] [place] [address] 04/24/2025 9:40 AM EST Office Visit [facility] Internal Medicine 40 [place] [address] Antione Segura PA-C 40 [place] [address] [email or web address] 04/25/2025 1:30 AM EST Appointment [facility] [address] [place] [phone] Shakira Hand, HUA 168 [place] [address] 06/25/2025 9:30 AM EST Telemedicine [facility] Neurology 22 [place] [address] Jn Cardoza MD [address] [place] [address], 2nd [place] [address] [email or web address] documented as of this encounter Visit Diagnoses Not on filedocumented in this encounter Additional Health Concerns Assessment Noted Time PHQ-2 Depression Total Score: 0 08/20/19 9:13 AM EST documented as of this encounter Care Teams Tuber Machine Operator Helper Relationship Specialty Start Date End Date Jennifre Duke, YARN SPOOLER [address] [place] [address] [email or web address] PCP - General Family Medicine 09/08/18 09/14/18 Lang Germain MD [address] [place] [address] [email or web address] PCP - General Internal Medicine 09/15/18 10/02/18 Jennifer Duke NP [address] [place] [address] [email or web address] PCP - General Family Medicine 10/03/18 10/05/18 Lang Germain MD [address] [place] [address] [email or web address] PCP - General Internal Medicine 10/06/18 10/12/18 Jennifer Duke NP [address] [place] [address] [email or web address] PCP - General Family Medicine 10/13/18 11/09/18 Lang Germain MD [address] [place] [address] [email or web address] PCP - General Internal Medicine 11/10/18 11/22/18 Jennifer Duke NP [address] [place] [address] PCP - General Family Medicine 11/23/18 11/30/18 Lang Germain MD [address] [place] [address] [email or web address] PCP - General Internal Medicine 12/01/18 12/13/18 Jennifer Duke NP [address] [place] [address] [email or web address] PCP - General Family Medicine 12/14/18 11/12/19 Lang Germain MD [address] [place] [address] [email or web address] PCP - General Internal Medicine 11/13/19 12/03/19 Jennifer Duke NP [address] [place] [address] [email or web address] PCP - General Family Medicine 12/04/19 01/23/20 Lang Germain MD [address] [place] [address] [email or web address] PCP - General Internal Medicine 01/24/20 01/30/20 Jennifer Duke NP [address] [place] [address] [email or web address] PCP - General Family Medicine 01/31/20 06/22/23 Sirisha Huertas FNP 15 [facility] 201 [place] [address] [email or web address] PCP - General Nurse Practitioner 06/23/23 08/03/24 Liyah Patterson MD 15 [facility] 201 [place] [address] [email or web address] PCP - General Family Medicine 08/04/24 10/11/24 Antione Segura PA-C [address] [place] [address] [email or web address] PCP - General Physician Processing Archivist 10/12/24 Charbel Webber MD [address] [place] [address], [address] [place] [address] [email or web address] Historical LMR Provider 04/01/17 0 Alverto Gandara MD [address] [place] [address], 2nd [place] [address] [email or web address] Historical LMR Provider 04/01/17 12/03/19 Maikel Rawls MD [address] [place] [address] [email or web address] Historical LMR Provider 04/01/17 12/03/19 Lang Germain MD [address] [place] [address] Insurance Assigned Provider 09/18/23 02/19/24 Jennifer Duke NP 10 [facility] 1 [place] [address] Nurse Practitioner Family Medicine 11/13/19 01/30/20 Jn Cardoza MD 22 [facility], 2nd [place] [address] Neurology 02/03/24 Denys Henriquez MD [address] [place] [address] [place] [address] Pulmonary Disease 02/03/24 Liyah Patterson MD 15 [facility] Subhash. [address] [place] [address] [email or web address] Insurance Assigned Provider 02/19/24 01/20/25 Rhett Cortez MD 40 [place] [address] Insurance Assigned Provider 01/20/25 documented as of this encounter Additional Source Comments The information contained in this document represents components of the legal health record. It is not the complete legal health record.[facility]
--- OUTSIDE RECORDS SUMMARY | 2025-04-16 07:11 | XMS_ITS | Encounter Summary ---
Author Organization [facility] Address [address] [place] [address] Phone Care Team Providers Care Pill Coater Name Role Phone Lang Germain MD Unavailable Jennifer Duke ERGONOMICS TECHNICIAN Primary Care Provider Sirisha Huertas SPANNER OPERATOR Primary Care Provider nJ Cardoza MD Unavailable Denys Henriquez MD Unavailable Liyah Patterson MD Unavailable Liyah Patterson MD Primary Care Provider [phone] Antione Segura PA-C Primary Care Provider [phone] Rhett Cortez MD Unavailable Encounter Details Date Type Department Care Team (Late st Contact Info) Description 02/25/2023 Procedure Pass [facility], [address] [address] Social History Tobacco Use Types Packs/Day Years [...] 2:00 PM EST Office Visit [facility] Internal Medicine 40 [place] [address] Antione Segura PA-C 40 [place] [address] [email or web address] 04/16/2025 3:00 PM EST Appointment [facility] [address] [place] [phone] Kennedy, Thao L [address] [place] [address] [email or web address] 04/18/2025 1:30 AM EST Appointment [facility] [address] [place] [phone] Shakira Hand, RN 168 [place] [address] [email or web address] 04/19/2025 2:00 AM EST Appointment [facility] [address] [place] [phone] Kennedy, Thao L 30 [place] [address] [email or web address] 04/23/2025 2:00 AM EST Appointment [facility] [address] [place] [phone] Kennedy, Thao L [address] [place] [address] [email or web address] 04/24/2025 9:40 AM EST Office Visit [facility] Internal Medicine 40 [place] [address] Antione Segura PA-C 40 [place] [address] 04/25/2025 1:30 AM EST Appointment [facility] 30 [place] [address] Shakira Hand RN 168 [place] [address] 06/25/2025 9:30 AM EST Telemedicine [facility] Neurology 22 [place] [address] Jn Cardoza MD 22 [facility], 2nd [place] [address] documented as of this encounter Visit Diagnoses Not on filedocumented in this encounter Additional Health Concerns Assessment Noted Time PHQ-9 Depression Total Score: 21 023 12:35 PM EDT PHQ-2 Depression Total Score: 2 02/19/20 23 6:55 PM EDT documented as of this encounter Care Teams Pill Coater Relationship Specialty Start Date End Date Jennifer Duke NP 40 [place] [address] PCP - General Family Medicine 01/31/20 06/22/23 Sirisha Huertas FNP [address] [place] [address] PCP - General Nurse Practitioner 06/23/23 08/03/24 Liyah Patterson MD [address] [place] [address] [email or web address] PCP - General Family Medicine 08/04/24 10/11/24 Antione Segura PA-C [address] [place] [address] PCP - General Physician Pizza Baker 10/12/24 Lang Germain MD 40 [place] [address] Insurance Assigned Provider 09/18/23 02/19/24 Jn Carodza MD 22 [facility], 2nd [place] [address] Neurology 02/03/24 Denys Henriquez MD [address] [place] [address] [place] [address] Pulmonary Disease 02/03/24 Liyah Patterson MD 15 [facility] Subhash. 201 [place] [address] Insurance Assigned Provider 02/19/24 01/20/25 Rhett Cortez MD [address] [place] [address] Insurance Assigned Provider 01/20/25 documented as of this encounter Additional Source Comments The information contained in this document represents components of the legal health record. It is not the complete legal health record.[facility]
--- OUTSIDE RECORDS SUMMARY | 2025-04-16 07:11 | XMS_ITS | Encounter Summary ---
Author Organization [facility] Address [address] [address] Phone Care Team Providers Care Big Data Analytics Lead Name Role Phone Jn Cardoza MD Unavailable Denys Henriquez MD Unavailable Liyah Patterson MD Unavailable Antione Segura-C Primary Care Provider Rhett Cortez MD Unavailable Encounter Details Date Type Department Care Team (Late st Contact Info) Description 12/06/2024 Home Health Resumption of Care Planning [facility] 30 [place] [address] Diana Torres, RN 168 [place] [address] [email or web address] Social History Tobacco Use Types Packs/Day [...] school, GED, job training, learning the [place] language, technical skills, or developing parenting [...] Description 04/16/2025 2:00 PM EST Office Visit [facility] Internal Medicine 40 [place], [place] [phone] Antione Segura PA-C 40 [place] [address] 04/16/2025 3:00 PM EST Appointment [facility] [address] [place] [phone] Kennedy, Thao L [address] [place] [address] [email or web address] 04/18/2025 1:30 AM EST Appointment [facility] [address] [place] [phone] Shakira Hand, RN [address] [place] [address] [email or web address] 04/19/2025 2:00 AM EST Appointment [facility] [address] [place] [phone] Kennedy, Thao L [address] [place] [phone] [email or web address] 04/23/2025 2:00 AM EST Appointment [facility] [address] [place] [phone] Kennedy, Thao L [address] [place] [phone] 04/24/2025 9:40 AM EST Office Visit [facility] Internal Medicine 40 [place] [address] Antione Segura PA-C 40 [place] [address] 04/25/2025 1:30 AM EST Appointment [facility] 30 [place] [address] Shakira Hand RN [address] [place] [address] [email or web address] 06/25/2025 9:30 AM EST Telemedicine [facility] Neurology 22 [place] [address] Jn Cardoza MD [address] [place] [address] [email or web address] documented as of this encounter Visit Diagnoses Not on filedocumented in this encounter Additional Health Concerns Assessment Noted Time PHQ-9 Depression Total Score: 21 025 12:31 PM EDT PHQ-2 Depression Total Score: 6 10/13/19 25 12:31 PM EDT documented as of this encounter Care Teams Big Data Analytics Lead Relationship Specialty Start Date End Date Antione Segura PA-C 40 [place] [address] PCP - General Physician Sole Leather Cutting Machine Operator 10/12/24 Jn Cardoza MD [address] [place] [address] Neurology 02/03/24 Denys Henriquez MD [address] [place] [address] [place] [address] Pulmonary Disease 02/03/24 Liyah Patterson MD [address] [place] [address] [email or web address] Insurance Assigned Provider 02/19/24 01/20/25 Rhett Cortez MD [address] [place] [address] [email or web address] Insurance Assigned Provider 01/20/25 documented as of this encounter Additional Source Comments The information contained in this document represents components of the legal health record. It is not the complete legal health record.[facility]
--- OUTSIDE RECORDS SUMMARY | 2025-04-16 07:11 | XMS_ITS | Clinical Summary ---
Author Organization [facility] Address [address] [phone] Care Team Providers Care Computer Numerical Control Machinist Name Role Phone Antione Segura Primary Care Provider [phone] Allergies Active Allergy Reactions Criticality Noted Date [...] Type Department Care Team Description 01/29/2025 Telephone [facility] [address] [place] [address] Stone Paver: Federico Hill Telephone Intake, Staff PAC Order Request; Dr. Bautista 01/25/2025 Orders Only [facility] [address] [place] [address] Stone Paver: Remy Santos MD 01/25/2025 Telephone [facility] Pulmonary Function Lab [address] [place] [address] Remy Bautista MD Whalen/med was not sent to pharmacy 01/24/2025 11:00 AM EDT Office Visit [facility] [address] [place] [address] Stone Paver: Remy Santos MD Stage 2 moderate COPD [...] complete this topic Procedures * Due to [place] state law, this organization might not be sharing negative HIV tests. Procedure Name Priority Date/Time Associated Diagnosis Comments AMB EXTERNAL CT CHEST, OUTSI DE RESULT 11/30/2024 from Last 3 Months or Most Recently Relevant to Health Maintenance Results * Due to [place] state law, this organization might not be sharing negative HIV tests. * CT Chest, Outside Result (11/30/2024) Anatomical Region Laterality Modality Other 11/30/2024 us Onbase Scan Bernadette AMB EXTERNAL RESULT PROCEDURE S Final Result from Last 3 Months or Most Recently Relevant to Health Maintenance Insurance [facility] HMO/POS Care Teams Computer Numerical Control Machinist Relationship Specialty Start Date End Date Antione Segura PA [address] [place] [address] PCP - General Emergency Medicine 01/10/25
--- OUTSIDE RECORDS SUMMARY | 2025-04-16 07:11 | XMS_ITS | Encounter Summary ---
Author Organization [facility] Address [address] [place] [address] Phone Care Team Providers Care Crop Research Scientist Name Role Phone Lang Germain MD Unavailable [phone] Jennifer Duke VISUAL DISPLAY MANAGER Primary Care Provider Sirisha Huertas PILING SETTER Primary Care Provider Jn Cardoza MD Unavailable Denys Henriquez MD Unavailable Liyah Patterson MD Unavailable Liyah Patterson MD Primary Care Provider [phone] Antione Segura PA-C Primary Care Provider [phone] Rhett Cortez MD Unavailable Encounter Details Date Type Department Care Team (Late st Contact Info) Description 09/01/2021 Procedure Pass [address] [address] Social History Tobacco Use Types Packs/Day Years [...] Description 04/16/2025 2:00 PM EST Office Visit [facility] Internal Medicine 40 [place] [address] Antione Segura PA-C 40 [place] [address] [email or web address] 04/16/2025 3:00 PM EST Appointment [facility] [address] [place] [phone] Kennedy, Thao L [address] [place] [address] [email or web address] 04/18/2025 1:30 AM EST Appointment [facility] [address] [place] [phone] Shakira Hand, RN [address] [place] [address] [email or web address] 04/19/2025 2:00 AM EST Appointment [facility] [address] [place] [phone] Kennedy, Thao L 30 [place] [address] [email or web address] 04/23/2025 2:00 AM EST Appointment [facility] [address] [place] [phone] Kennedy, Thao L [address] [place] [phone] [email or web address] 04/24/2025 9:40 AM EST Office Visit [facility] Internal Medicine 40 [place] [address] Antione Segura PA-C 40 [place] [address] [email or web address] 04/25/2025 1:30 AM EST Appointment [facility] 30 [place] [address] Shakira Hand RN 168 [place] [address] 06/25/2025 9:30 AM EST Telemedicine [facility] Neurology 22 [place] [address] Jn Cardoza MD [address] [facility], 2nd [place] [address] documented as of this encounter Visit Diagnoses Not on filedocumented in this encounter Additional Health Concerns Assessment Noted Time PHQ-2 Depression Total Score: 0 05/25/20 9:02 AM EST documented as of this encounter Care Teams Crop Research Scientist Relationship Specialty Start Date End Date Jennifer Duke NP 40 [place] [address] PCP - General Family Medicine 01/31/20 06/22/23 Sirisha Huertas FNP [address] [address] PCP - General Nurse Practitioner 06/23/23 08/03/24 Liyah Patterson MD [address] [address] [email or web address] PCP - General Family Medicine 08/04/24 10/11/24 Antione Segura PA-C [address] [place] [address] PCP - General Physician Bee Raiser 10/12/24 Lang Germain MD [address] [place] [address] Insurance Assigned Provider 09/18/23 02/19/24 Jn Cardoza MD [address] [facility], 2nd [place] [address] Neurology 02/03/24 Denys Henriquez MD [address] [place] [address] [place] [address] Pulmonary Disease 02/03/24 Liyah Patterson MD [address] [facility] [address]hash. [address] [place] [address] [email or web address] Insurance Assigned Provider 02/19/24 01/20/25 Rhett Cortez MD [address] [place] [address] Insurance Assigned Provider 01/20/25 documented as of this encounter Additional Source Comments The information contained in this document represents components of the legal health record. It is not the complete legal health record.[facility]
--- OUTSIDE RECORDS SUMMARY | 2025-04-16 07:12 | XMS_ITS | Encounter Summary ---
Author Organization [facility] Address [address] [place] [address] Phone Care Team Providers Care Pharmaceutical Physician Name Role Phone Jn Cardoza MD Unavailable Denys Henriquez MD Unavailable [phone] Antione Segura PA-C Primary Care Provider [phone] Rhett Cortez MD Unavailable Encounter Details Date Type Department Care Team (Late st Contact Info) Description 03/13/2025 Orders Only [facility] Internal Medicine 40 [place] [address] Provider, MD Omar [address] [place] [address] Social History Tobacco Use Types Packs/Day [...] high school, GED, job training, learning the Zambian language, technical skills, or developing parenting skills)? [...] Description 04/16/2025 2:00 PM EST Office Visit [facility] Internal Medicine 40 [place] [address] Antione Segura PA-C 40 [place] [address] 04/16/2025 3:00 PM EST Appointment [facility] [address] [place] [phone] Kennedy, Thao [address] [address] 04/18/2025 1:30 AM EST Appointment [facility] [address] [place] [phone] Shakira Hand, HUA 168 [place] [address] 04/19/2025 2:00 AM EST Appointment [facility] [address] [place] [phone] Kennedy, Thao L 30 [place] [address] 04/23/2025 2:00 AM EST Appointment [facility] [address] [place] [phone] Kennedy, Thao L [address] [place] [address] 04/24/2025 9:40 AM EST Office Visit [facility] Internal Medicine 40 [place] [address] Antione Segura PA-C 40 [place] [address] [email or web address] 04/25/2025 1:30 AM EST Appointment [facility] 30 [place], [place] [phone] Shakira Hand, HUA [address] [place] [address] 06/25/2025 9:30 AM EST Telemedicine [facility] Neurology 22 [place] [address] Jn Cardoza MD [address] [place] [address] documented as of this encounter Procedures Procedure [...] documented as of this encounter Care Teams Pharmaceutical Physician Relationship Specialty Start Date End Date Antione Segura PA-C 40 [place], [place] PCP - General Physician Supervisor Painting 10/12/24 Jn Cardoza MD [address] [place] [address] [email or web address] Neurology 02/03/24 Denys Henriquez MD [address] [place] [address] [place] [address] Pulmonary Disease 02/03/24 Rhett Cortez MD [address] [place] [address] [email or web address] Insurance Assigned Provider 01/20/25 documented as of this encounter Additional Source Comments The information contained in this document represents components of the legal health record. It is not the complete legal health record.[facility]
--- OUTSIDE RECORDS SUMMARY | 2025-04-16 07:12 | XMS_ITS | Encounter Summary ---
Author Organization [facility] Address [address] [place] [address] Phone Care Team Providers Care Strike Out Machine Operator Name Role Phone Lang Germain MD Unavailable [phone] Jennifer Duke CHAIR CAR DRIVER Primary Care Provider Siirsha Huertas CRATE TIER Primary Care Provider Jn Cardoza MD Unavailable Denys Henriquez MD Unavailable Liyah Patterson MD Unavailable Liyah Patterson MD Primary Care Provider [phone] Antione Segura PA-C Primary Care Provider Rhett Cortez MD Unavailable Encounter Details Date Type Department Care Team (Late st Contact Info) Description 05/06/2021 Procedure Pass [facility], [address] [address] Social History Tobacco Use Types Packs/Day Years [...] Description 04/16/2025 2:00 PM EST Office Visit [facility] Internal Medicine 40 [place] [address] Antione Segura PA-C 40 [place] [address] [email or web address] 04/16/2025 3:00 PM EST Appointment [facility] [address] [place] [phone] Kennedy, Thao L [address] [place] [address] [email or web address] 04/18/2025 1:30 AM EST Appointment [facility] [address] [place] [phone] Shakira Hand, RN [address] [place] [address] [email or web address] 04/19/2025 2:00 AM EST Appointment [facility] [address] [place] [phone] Kennedy, Thao L 30 [place] [address] [email or web address] 04/23/2025 2:00 AM EST Appointment [facility] [address] [place] [phone] Kennedy, Thao L [address] [place] [phone] [email or web address] 04/24/2025 9:40 AM EST Office Visit [facility] Internal Medicine [address] [place] [address] Antione Segura PA-C 40 [place] [address] [email or web address] 04/25/2025 1:30 AM EST Appointment [facility] 30 [place] [address] Shakira Hand RN 168 [place] [address] 06/25/2025 9:30 AM EST Telemedicine [facility] Neurology 22 [place] [address] Jn Cardoza MD 22 [facility], 2nd [place] [address] documented as of this encounter Visit Diagnoses Not on filedocumented in this encounter Additional Health Concerns Assessment Noted Time PHQ-2 Depression Total Score: 0 05/25/20 9:02 AM EST documented as of this encounter Care Teams Strike Out Machine Operator Relationship Specialty Start Date End Date Jennifer Duke NP 40 [place] [address] PCP - General Family Medicine 01/31/20 06/22/23 Sirisha Huertas FNP [address] [address] PCP - General Nurse Practitioner 06/23/23 08/03/24 Liyah Patterson MD [address] [address] [email or web address] PCP - General Family Medicine 08/04/24 10/11/24 Antione Segura PA-C [address] [place] [address] PCP - General Physician [employer] Assault Craft Crewman 10/12/24 Lang Germain MD [address] [place] [phone] Insurance Assigned Provider 09/18/23 02/19/24 Jn Cardoza MD 22 [facility], 2nd [place] [address] Neurology 02/03/24 Denys Henriquez MD [address] [place] [address] [place] [address] Pulmonary Disease 02/03/24 Liyah Patterson MD 15 [facility] Subhash. [address] [place] [address] [email or web address] Insurance Assigned Provider 02/19/24 01/20/25 Rhett Cortez MD [address] [place] [phone] Insurance Assigned Provider 01/20/25 documented as of this encounter Additional Source Comments The information contained in this document represents components of the legal health record. It is not the complete legal health record.[facility]
--- OUTSIDE RECORDS SUMMARY | 2025-04-16 07:12 | XMS_ITS | Encounter Summary ---
Author Organization [facility] Address [address] [place] [address] Phone Care Team Providers Care Desktop Administrator Name Role Phone nJ Cardoza MD Unavailable Denys Henriquez MD Unavailable Antione Segura PA-C Primary Care Provider Rhett Cortez MD Unavailable Encounter Details Date Type Department Care Team (Late st Contact Info) Description 03/28/2025 Procedure Pass [facility], Ct Scan - [address] [address] Social History Tobacco Use Types Packs/Day Years [...] high school, GED, job training, learning the [place]ank[place] language, technical skills, or developing parenting skills)? [...] Description 04/16/2025 2:00 PM EST Office Visit [facility] Internal Medicine 40 [place] [address] Antione Segura PA-C 40 [place] [address] 04/16/2025 3:00 PM EST Appointment [facility] [address] [place] [phone] Kennedy, Thao L [address] [place] [address] 04/18/2025 1:30 AM EST Appointment [facility] [address] [place] [phone] Shakira Hand, RN [address] [place] [address] 04/19/2025 2:00 AM EST Appointment [facility] [address] [place] [phone] Kennedy, Thao L 30 [place] [address] 04/23/2025 2:00 AM EST Appointment [facility] [address] [place] [phone] Kennedy, Thao L [address] [place] [address] 04/24/2025 9:40 AM EST Office Visit [facility] Internal Medicine 40 [place] [address] Antione Segura PA-C 40 [place] [address] [email or web address] 04/25/2025 1:30 AM EST Appointment [facility] 30 [place] [address] Shakira Hand RN [address] [place] [address] 06/25/2025 9:30 AM EST Telemedicine [facility] Neurology 22 [place] [address] Jn Cardoza MD [address] [place] [address] documented as of this encounter Visit Diagnoses Not on filedocumented in this encounter Additional Health Concerns Assessment Noted Time PHQ-9 Depression Total Score: 23 025 3:04 PM EDT PHQ-2 Depression Total Score: 5 03/21/20 25 3:04 PM EDT documented as of this encounter Care Teams Desktop Administrator Relationship Specialty Start Date End Date Antione Segura PA-C [address] [place] [address] PCP - General Physician Technical Instructor 10/12/24 Jn Cardoza MD [address] [place] [address] Neurology 02/03/24 Denys Henriquez MD [address] [place] [address] [place] [address] Pulmonary Disease 02/03/24 Rhett Cortez MD [address] [place] [address] [email or web address] Insurance Assigned Provider 01/20/25 documented as of this encounter Additional Source Comments The information contained in this document represents components of the legal health record. It is not the complete legal health record.[facility]
--- OUTSIDE RECORDS SUMMARY | 2025-04-16 07:12 | XMS_ITS | Encounter Summary ---
Author Organization [facility] Address [address] [address] Phone Care Team Providers Care Solar Energy Technician Name Role Phone Jn Cardoza MD Unavailable Denys Henriquez MD Unavailable Antione Segura PA-C Primary Care Provider Rhett Cortez MD Unavailable Encounter Details Date Type Department Care Team (Late st Contact Info) Description 02/09/2025 Home Health Resumption of Care Planning [facility] [address] [place] [address] Koki Simons RN 168 [place] [address] [email or web address] Social History Tobacco Use Types Packs/Day Years [...] Description 04/16/2025 2:00 PM EST Office Visit [facility] Internal Medicine 40 [place] [address] Antione Segura PA-C [address] [place] [address] 04/16/2025 3:00 PM EST Appointment [facility] [address] [place] [phone] Kennedy, Thao L [address] [place] [address] 04/18/2025 1:30 AM EST Appointment [facility] [address] [place] [phone] Shakira Hand, RN [address] [place] [address] 04/19/2025 2:00 AM EST Appointment [facility] [address] [place] [phone] Kennedy, Thao L [address] [place] [address] 04/23/2025 2:00 AM EST Appointment [facility] [address] [place] [phone] Kennedy, Thao L [address] [place] [address] 04/24/2025 9:40 AM EST Office Visit [facility] Internal Medicine 40 [place], [place] [phone] Antione Segura PA-C [address] [place] [address] 04/25/2025 1:30 AM EST Appointment [facility] 30 [place] [address] Shakira Hand, HUA 168 [place] [address] [email or web address] 06/25/2025 9:30 AM EST Telemedicine [facility] Neurology 22 [place] [address] Jn Cardoza MD [address] [place] [address] documented as of this encounter Visit Diagnoses Not on filedocumented in this encounter Additional Health Concerns Assessment Noted Time PHQ-9 Depression Total Score: 15 025 9:44 AM EDT PHQ-2 Depression Total Score: 4 02/01/20 25 9:44 AM EDT documented as of this encounter Care Teams Solar Energy Technician Relationship Specialty Start Date End Date Antione Segura PA-C [address] [place] [address] PCP - General Physician Corn Picker 10/12/24 Jn Cardoza MD [address] [place] [address] Neurology 02/03/24 Denys Henriquez MD [address] [place] [address] [place] [address] Pulmonary Disease 02/03/24 Rhett Cortez MD [address] [place] [address] [email or web address] Insurance Assigned Provider 01/20/25 documented as of this encounter Additional Source Comments The information contained in this document represents components of the legal health record. It is not the complete legal health record.[facility]
--- OUTSIDE RECORDS SUMMARY | 2025-04-16 07:12 | XMS_ITS | Encounter Summary ---
Author Organization [facility] Address [address] [place] [address] Phone Care Team Providers Care Cinder Worker Name Role Phone Lang Germain MD Unavailable [phone] Jennifer Duke DECK SPECIALIST Primary Care Provider Sirisha Huertas NARROW GAUGE ENGINEER Primary Care Provider Jn Cardoza MD Unavailable Denys Henriquez MD Unavailable [phone] Liyah Patterson MD Unavailable Liyah Patterson MD Primary Care Provider [phone] Antione Segura PA-C Primary Care Provider Rhett Cortez MD Unavailable Encounter Details Date Type Department Care Team (Late st Contact Info) Description 06/30/2022 Procedure Pass [facility], Ct Scan - [address] [address] Social History Tobacco Use Types Packs/Day Years [...] Description 04/16/2025 2:00 PM EST Office Visit [facility] Internal Medicine 40 [place] [address] Antione Segura PA-C 40 [place] [address] 04/16/2025 3:00 PM EST Appointment [facility] [address] [place] [phone] Kennedy, Thao L [address] [place] [address] [email or web address] 04/18/2025 1:30 AM EST Appointment [facility] [address] [place] [phone] Shakira Hand, HUA [address] [place] [address] 04/19/2025 2:00 AM EST Appointment [facility] [address] [place] [phone] Kennedy, Thao L 30 [place] [address] [email or web address] 04/23/2025 2:00 AM EST Appointment [facility] [address] [place] [phone] Kennedy, Thao L [address] [place] [address] 04/24/2025 9:40 AM EST Office Visit [facility] Internal Medicine 40 [place] [address] Antione Segura PA-C 40 [place] [address] 04/25/2025 1:30 AM EST Appointment [facility] [place] [facility] 30 [place] [address] Shakira Hand RN 168 [place] [address] 06/25/2025 9:30 AM EST Telemedicine [facility] Neurology 22 [place] [address] Jn Cardoza MD 22 [facility], 2nd [place] [address] documented as of this encounter Visit Diagnoses Not on filedocumented in this encounter Additional Health Concerns Assessment Noted Time PHQ-9 Depression Total Score: 18 023 8:53 AM EST PHQ-2 Depression Total Score: 6 06/26/19 23 8:53 AM EST documented as of this encounter Care Teams Cinder Worker Relationship Specialty Start Date End Date Jennifer Duke NP 40 [place] [address] PCP - General Family Medicine 01/31/20 06/22/23 Sirisha Huertas FNP [address] [place] [address] PCP - General Nurse Practitioner 06/23/23 08/03/24 Liyah Patterson MD [address] [address] [email or web address] PCP - General Family Medicine 08/04/24 10/11/24 Antione Segura PA-C [address] [place] [address] PCP - General Physician Machining And Assembly Supervisor 10/12/24 Lang Germain MD [address] [place] [address] Insurance Assigned Provider 09/18/23 02/19/24 Jn Cardoza MD 22 [facility], 2nd [place] [address] [email or web address] Neurology 02/03/24 Denys Henriquez MD [address] [place] [address] [place] [address] Pulmonary Disease 02/03/24 Liyah Patterson MD [address] [address] [email or web address] Insurance Assigned Provider 02/19/24 01/20/25 Rhett Cortez MD [address] [place] [address] Insurance Assigned Provider 01/20/25 documented as of this encounter Additional Source Comments The information contained in this document represents components of the legal health record. It is not the complete legal health record.[facility]
--- OUTSIDE RECORDS SUMMARY | 2025-04-16 07:12 | XMS_ITS | Encounter Summary ---
Author Organization [facility] Address [address] [place] [address] Phone Care Team Providers Care Systems Coordinator Name Role Phone Jn Cardoza MD Unavailable Denys Henriquez MD Unavailable Antione Segura PA-C Primary Care Provider Rhett Cortez MD Unavailable Reason for Visit * Reason Onset Date Comments TCM Visit 04/11/2025 Encounter Details Date Type Department Care Team (Late st Contact Info) Description 04/11/2025 Refill [facility] [place] [facility] [address] [place], [place] [phone] Elida Lindquist, HUA [address] [place], [place] [phone] [email or web address] TCM Visit Social History Tobacco Use Types [...] high school, GED, job training, learning the [place] language, technical skills, or developing parenting skills)? [...] 11:53 AM EDT Records request sent to [facility] * Gwen Jennings CMA - 04/11/2025 11:11 AM EDT Images from the original note were not included. At least one Rx below has no protocol and needs review. Rx Care Gap Status - Instructions for Clinical Staff (prescriber discretion applies): > Mismatch review guide > Check PDMP for all controlled medication requests. Visit Info Last visit: 03/28/2025 Antione Segura PA-C - Internal Medicine [facility] > Requested f/u: Return in about 1 month (around 04/28/2025) for Recheck 40 minutes . Upcoming visit: 04/16/2025 Antione Segura PA-C - Internal Medicine [facility] ACTIONS TAKEN BY Gwen Jennings CMA - Checked PDMP/MassPAT. Opioid Rx Protocol - oxycodone HCl Controlled substance renewals are at prescriber discretion. Pain mgmt profile/toxicology (urine/saliva) may be considered annually or more frequently if indicated. In-person visit in past 2 years: Yes (Last in-person visit: 03/28/2025 (Antione Segura PA-C - [facility])) Visit in past 4 months: Yes No [...] date: 04/08/25 Discharge date: 04/09/25 Discharge from: [facility] Reason for hospitalization: Desaturation, not wearing [...] she has services prior to admission with [facility], and these are continuing Medication [...] review?: No Was the patient/caregiver able to roller picker all new prescriptions?: Yes Does the [...] lab results. States she was admitted at [facility] . States she was admitted for [...] 2:00 PM EST Office Visit [facility] Internal Medicine [address] [place] [address] Antione Segura PA-C [address] [place] [address] [email or web address] 04/16/2025 3:00 PM EST Appointment [facility] [address] [place] [address] [facility] [address] [email or web address] 04/18/2025 1:30 AM EST Appointment [facility] [address] [place] [address] Shakira Hand RN [address] [place] [address] [email or web address] 04/19/2025 2:00 AM EST Appointment [facility] [address] [place] [address] Eliseo Kennedyica L [address] [place] [phone] [email or web address] 04/23/2025 2:00 AM EST Appointment [facility] [address] [place] [address] KennedyThao [address] [place] [address] [email or web address] 04/24/2025 9:40 AM EST Office Visit [facility] Internal Medicine [address] [place] [address] Antione Segura PA-C [address] [place] [address] 04/25/2025 1:30 AM EST Appointment [facility] [address] [place] [phone] Shakira Hand RN [address] [place] [phone] [email or web address] 06/25/2025 9:30 AM EST Telemedicine [facility] Neurology [address] [place] [phone] Jn Cardoza MD [address] [place] [address], [address] [place] [address] [email or web address] documented as of this encounter Visit Diagnoses Diagnosis Acute right-sided low back pain without sciatica Flu vaccine need- Primary Acute on chronic hypoxic respiratory failure documented in this encounter Additional Health Concerns Assessment Noted Time PHQ-9 Depression Total Score: 23 025 3:04 PM EDT PHQ-2 Depression Total Score: 5 03/21/20 25 3:04 PM EDT documented as of this encounter Care Teams Systems Coordinator Relationship Specialty Start Date End Date Antione Segura PA-C [address] [place] [phone] [email or web address] PCP - General Physician Poultry Breeder 10/12/24 Jn Cardoza MD 22 [facility], 2nd [place] [address] [email or web address] Neurology 02/03/24 Denys Henriquez MD [address] [place] [address] [place] [address] Pulmonary Disease 02/03/24 Rhett Cortez MD [address] [place] [phone] [email or web address] Insurance Assigned Provider 01/20/25 documented as of this encounter Additional Source Comments The information contained in this document represents components of the legal health record. It is not the complete legal health record.[facility]
--- OUTSIDE RECORDS SUMMARY | 2025-04-16 07:12 | XMS_ITS | Encounter Summary ---
Author Organization [facility] Address [address] [place] [phone] Phone Care Team Providers Care Room Worker Name Role Phone Charbel Webber MD Unavailable Alverto Gandara MD Unavailable Maikel Rawls MD Unavailable [phone] Lang Germain MD Primary Care Provider Jennifer Duke TRANSITION MGR RN Primary Care Provider Lang Germain MD Primary Care Provider Jennifer Duke TRANSITION MGR RN Primary Care Provider Lang Germain MD Primary Care Provider Jennifer Duke TRANSITION MGR RN Primary Care Provider Lang Germain MD Unavailable Lang Germain MD Primary Care Provider Jennifer Duke TRANSITION MGR RN Primary Care Provider Lang Germain MD Primary Care Provider Jennifer Duke TRANSITION MGR RN Primary Care Provider Lang Germain MD Primary Care Provider [phone] Jennifer Duke TRANSITION MGR RN Primary Care Provider [phone] Lang Germain MD Primary Care Provider [phone] Jennifer Duke TRANSITION MGR RN Unavailable [phone] Jennifer Duke TRANSITION MGR RN Primary Care Provider [phone] Lang Germain MD Primary Care Provider [phone] Jennifer Duke TRANSITION MGR RN Primary Care Provider [phone] Aleksandar Sirishafrancisca Kendall HYDROELECTRIC STATION OPERATOR CHIEF Primary Care Provider [phone] Jn Cardoza MD Unavailable Denys Henriquez MD Unavailable [phone] Liyah Patterson MD Unavailable Liyah Patterson MD Primary Care Provider [phone] Antione Segura PA-C Primary Care Provider [phone] Rhett Cortez MD Unavailable Reason for Referral * MRI/CAT Scan - Closed Specialty Diagnoses / Procedures Referred By Contac t Referred To Contact Procedures CT Head Outside (No Interpretation) System, Provider Not In, PhD [address] [address] Referral ID Status Reason Start Date Expiration Date Visits Re quested Visits Authorized [id number] Closed 06/20/2018 06/20/2019 1 1 * MRI/CAT Scan - Closed Specialty Diagnoses / Procedures Referred By Contac t Referred To Contact Procedures CT Face Outside (No Interpretation) System, Provider Not In, PhD [address] [address] Referral ID Status Reason Start Date Expiration Date Visits Re quested Visits Authorized [id number] Closed 06/20/2018 06/20/2019 1 1 Encounter Details Date Type Department Care Team (Late st Contact Info) Description 06/20/2018 Ancillary Orders [facility] [address] [place] [address] System, Provider Not In, [place] [address] Social History Tobacco Use Types Packs/Day Years [...] Description 04/16/2025 2:00 PM EST Office Visit [facility] [place] [facility] [address] [place] [address] Antione Segura PA-C [address] [place] [address] 04/16/2025 3:00 PM EST Appointment [facility] [address] [place] [address] [facility] [address] [address] 04/18/2025 1:30 AM EST Appointment [facility] [address] [place] [address] Shakira Hand, HUA [address] [place] [address] [email or web address] 04/19/2025 2:00 AM EST Appointment [facility] [address] [place] [address] Kennedy, Thao [address] [address] 04/23/2025 2:00 AM EST Appointment [facility] [address] [place] [phone] Thao Kennedy [address] [place] [address] [email or web address] 04/24/2025 9:40 AM EST Office Visit [facility] Internal Medicine [address] [place] [address] Antione Segura PA-C [address] [place] [address] [email or web address] 04/25/2025 1:30 AM EST Appointment [facility] [address] [place] [phone] Shakira Hand RN [address] [place] [address] [email or web address] 06/25/2025 9:30 AM EST Telemedicine [facility] [address] [place] [address] Jn Cardoza MD [address] [facility], [address] [place] [address] [email or web address] documented as of this encounter Results * [...] documented as of this encounter Care Teams Room Worker Relationship Specialty Start Date End Date Lang Germain MD [address] [place] [address] [email or web address] PCP - General Internal Medicine 06/13/18 06/30/18 Jennifer Duke TRANSITION MGR RN [address] [place] [address] [email or web address] PCP - General Family Medicine 07/01/18 08/02/18 Lang Germain MD [address] [place] [address] PCP - General Internal Medicine 08/03/18 09/07/18 Jennifer Duke, TRANSITION MGR RN [address] [place] [address] PCP - General Family Medicine 09/08/18 09/14/18 Lang Germain MD [address] [place] [address] PCP - General Internal Medicine 09/15/18 10/02/18 Jennifer Duke, TRANSITION MGR RN [address] [place] [address] PCP - General Family Medicine 10/03/18 10/05/18 Lang Germain MD [address] [place] [address] [email or web address] PCP - General Internal Medicine 10/06/18 10/12/18 Jnenifer Duke NP [address] [place] [address] [email or web address] PCP - General Family Medicine 10/13/18 11/09/18 Lang Germain MD [address] [place] [address] [email or web address] PCP - General Internal Medicine 11/10/18 11/22/18 Jennifer Duke TRANSITION MGR RN [address] [place] [address] [email or web address] PCP - General Family Medicine 11/23/18 11/30/18 Lang Germain MD [address] [place] [address] [email or web address] PCP - General Internal Medicine 12/01/18 12/13/18 Jennifer Duke TRANSITION MGR RN [address] [place] [address] [email or web address] PCP - General Family Medicine 12/14/18 11/12/19 Lang Germain MD [address] [place] [address] [email or web address] PCP - General Internal Medicine 11/13/19 12/03/19 Jeninfer Duke, TRANSITION MGR RN [address] [place] [phone] [email or web address] PCP - General Family Medicine 12/04/19 01/23/20 Lang Germain MD [address] [place] [address] [email or web address] PCP - General Internal Medicine 01/24/20 01/30/20 Jennifer Duke TRANSITION MGR RN [address] [place] [address] [email or web address] PCP - General Family Medicine 01/31/20 06/22/23 Sirisha Huertas FNP [address] [place] [address] [address] [place] [address] [email or web address] PCP - General Nurse Practitioner 06/23/23 08/03/24 Liyah Patterson MD [address] [place] [address] [email or web address] PCP - General Family Medicine 08/04/24 10/11/24 Antione Segura PA-C [address] [place] [address] [email or web address] PCP - General Physician Senior Radiation Therapist 10/12/24 Charbel Webber MD [address] [place] [address], [address] [place] [address] Historical LMR Provider 04/01/17 0 Alverto Gandara MD [address] [facility], [address] [place] [address] Historical LMR Provider 04/01/17 12/03/19 Maikel Rawls MD [address] [place] [address] [email or web address] Historical LMR Provider 04/01/17 12/03/19 Lang Germain MD [address] [place] [address] [email or web address] Insurance Assigned Provider 09/18/23 02/19/24 Jennifer Duke, TRANSITION MGR RN [address] [place] [address] Nurse Practitioner Family Medicine 11/13/19 01/30/20 Jn Cardoza MD [address] [address] Neurology 02/03/24 Denys Henriquez MD [address] [place] [address] [place] [address] Pulmonary Disease 02/03/24 Liyah Patterson MD 15 [facility] [address] [place] [address] [email or web address] Insurance Assigned Provider 02/19/24 01/20/25 Rhett Cortez MD [address] [place] [address] [email or web address] Insurance Assigned Provider 01/20/25 documented as of this encounter Additional Source Comments The information contained in this document represents components of the legal health record. It is not the complete legal health record.[facility]
--- OUTSIDE RECORDS SUMMARY | 2025-04-16 07:12 | XMS_ITS | Clinical Summary ---
Author Organization [facility] Address [address] [place] [phone] Phone Care Team Providers Care Can Worker Name Role Phone Jn Cardoza MD Unavailable Denys Henriquez MD Unavailable [phone] Antione Segura PA-C Primary Care Provider [phone] Rhett Cortez MD Unavailable Allergies Active Allergy [...] continue cycle. 6.6 mL 1 025 Active hyoscyamine (ANASPAZ,LEVSIN) 0.125 mg tabletIndications: [...] Dr. Henriquez/griffin onology not on her medlist 025 Active omeprazole (PRILOSEC) 20 MG capsule Take 20 mg by mouth daily. 025 Active benzonatate (TESSALON) 100 MG capsuleIndications :Persistent cough Take 1 capsule (100 mg total) by mouth 3 (three) times a day as needed for cough. 20 capsule 025 Active LORazepam (ATIVAN) 0.5 MG tabletIndications: Anxiety Take 1 tablet (0.5 mg total) by mouth 2 (two) times a day as needed for anxiety. Must last one month. 14 tablet 025 Active budesonide-glycopy r-formoterol (BREZTRI AEROSPHERE) 160-9-4.8 mcg/actuation inhaler Inhale 2 puffs into the lungs 2 (two) times a day. 025 Active OXcarbazepine (TRILEPTAL) 300 MG IMMEDIATE release tabletIndications: Trigeminal neuralgia of left side of face,Atypical facial pain Take 1 tablet (300 mg total) by mouth 2 (two) times a day. 60 tablet 11 025 Active butalbital-acetami nophen-caffeine (FIORICET, ESGIC) 50-325-40 mg per tablet TAKE ONE TABLET BY MOUTH EVERY DAY NEEDED FOR PAIN 8 tablet 025 Active albuterol 90 mcg/actuation inhaler INHALE TWO PUFFS BY MOUTH EVERY 4 HOURS NEEDED FOR WHEEZING 8.5 g 025 Active atorvastatin (LIPITOR) 80 MG tabletIndications: Mixed hyperlipidemia Take 1 tablet (80 mg total) by mouth every morning. 30 tablet 2 Active gabapentin (NEURONTIN) 300 MG capsuleIndications :Trigeminal [...] (specific location in comments). 28 tablet 025 Active diphenhydrAMINE (BENADRYL) 50 MG capsule Take 1 capsule (50 mg total) by mouth as directed. Take 1 hour before your appointment where you will be receiving IV contrast dye for your imaging study 1 capsule 2024 Discontinued(N o longer taking) ID-clobetasol propionate (20-577) 0.05 % topical ointment Apply 1 Application topically 2 (two) times a day. 2024 Discontinued(N o longer taking) predniSONE (DELTASONE) 10 MG tablet Take 10 mg by mouth daily. 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 Take 1 hour before your appointment where you will be receiving IV contrast dye for your imaging study 1 tablet 025 2024 Discontinued(N o longer taking) Active Problems [...] A-fib and have her follow-up with the editing internship Acute on chronic hypoxic respiratory failure Assessment & Plan (03/28/2025 4:20 PM EDT): Patient was recently admitted to [facility] from 03/13-03/19 for acute on chronic hypoic [...] L. She has to follow-up with her plumbing engineer and to schedule another sleep study to be completed. Assessment & Plan (12/28/2024 6:54 PM EDT): Respiratory status improved on course of antibiotics and prednisone. Continue deep breathing and monitor for any worsened respiratory status. Monitor home spO2. Continue benzonatate prn. Continue O2 therapy as prescribed. Referral placed to [facility]monology. 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 Thurman at [facility]. Patient follows regularly with him. [...] Does have outpatient stress test scheduled with [facility] Cardiology. Discussed that results would indicate future management and whether that may include cardiac catheterization. I do not see record of this within her discharge summary from [facility] Assessment & Plan (12/22/2023 [...] should be seen and followed by a vp research which she does already have appointment scheduled [...] how this is not appropriate given prescribed Lockwood for pain and risk of LOADMASTER depression. She is aware of these risks [...] study and speech evaluation when inpatient at [facility]. Discussed referral to gastroenterology discussed potential of [...] does have an upcoming appointment with her plumbing engineer next week. Of note she also saw another plumbing engineer Remy Bautista out [facility] [...] closely with Dr. Henriquez out of [facility]. She is on Daliresp, DuoNebs [...] a scheduled appointment on 12/18 with her plumbing engineer. She is hoping to get this moved [...] closely with Dr. Henriquez out of [facility]. She is on Daliresp, DuoNebs [...] prednisone as prescribed upon discharge from [facility]. Discussed concern for coronary requirement of nebulizer treatments and albuterol rescue inhaler. We also reviewed the importance of vaping cessation, she remains precontemplative. She does have follow-up appointment scheduled with Dr. Henriquez and has resumed VNA services. Assessment & Plan (11/29/2023 5:28 PM EDT): Recent admission for COPD exacerbation with acute hypoxemic respiratory failure. Current plumbing engineer is Dr. Henriquez at [facility]. She is interested in establishing care with [facility] pulmonology some of her specialists are within the [facility] system for better continuity of care. She understands that she should continue with Dr. Sevilla until she is able to establish care with [facility] Hypoxemia requiring supplemental oxygen 03/11/2023 10/12/2024 [...] Continue follow-up with Dr. 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 We discussed concern for LOADMASTER depression and need to minimize use especially [...] 3 times daily and she was on Lockwood however during her last hospital stay this was transitioned to oxycodone which has been providing her more relief. I did discuss with her with regards to changing the medication and stated that I would change it if it was longer periods of time in between the doses which she is agreeable to as she felt that the oxycodone worked better for pain control. -HiralT was verified. Patient signed an controlled substance [...] Encounters Date Type Department Care Team Description 04/15/2025 Home Health Resumption of Care Planning [facility] [address] [place] [phone] Dennise Rodriguez RN 04/13/[address] [place] [address] Vilma Velázquez Care Coordination 04/12/2025 3:00 PM EDT Home Care Visit [facility] [address] [place] [phone] Thao Kennedy CASE COMMUNICATION 04/12/2025 Documentation [facility] [address] [place] [address] Antione Segura PA-C 04/12/2025 Orders Only [facility] [address] [place] [address] ProviderOmar MD 04/11/2025 Refill [facility] [address] [place] [address] Elida Lindquist, HUA TCM Visit 04/10/2025 Telephone [facility] [address] [place] [address] Antione Segura PA-C TCM Visit (Needs appt ) 04/10/2025 Telephone [facility] [address] [place] [address] Antione Segura PA-C Forms & Paperwork 04/09/2025 3:00 PM EDT Home Care Visit [facility] [address] [place] [address] Kennedy, Thao L POWER LINE INSTALLER AND REPAIRER HOME VISIT 04/09/2025 Telephone [facility] [address] [place] [address] Janay Naidu Care Coordination 04/09/2025 Orders Only [facility] [address] [place] [address] ProviderOmar MD 04/07/2025 Refill [facility] [address] [place] [address] Antione Segura PA-C Medication Refill 04/06/2025 11:45 AM EDT - 04/06/2025 11:59 PM EDT Hospital Encounter [address] [address] Antione Segura PA-C Discharge Disposition: Home or Self Care 04/06/2025 Orders Only [facility] [address] [place] [address] Antione Segura PA-C Abnormal finding on imaging (Primary Dx); Allergic reaction to contrast material, subsequent encounter 04/05/2025 3:00 PM EDT Home Care Visit [facility] [address] [place] [address] Kennedy, Thao L POWER LINE INSTALLER AND REPAIRER HOME VISIT 04/05/2025 2:00 AM EDT Home Care Visit [facility] [address] [place] [address] Rich Mariscal LPN HOME VISIT 04/05/2025 [facility] [address] [place] [address] Magry Rubalcava 04/04/2025 Episode Documentation Update [facility] [address] [place] [phone] Margy Rubalcava 04/03/2025 Episode Documentation Update [facility] [address] [place] [phone] Margy Rubalcava 04/02/2025 2:00 PM EDT Home Care Visit [facility] [address] [place] [phone] Thao Kennedy POWER LINE INSTALLER AND REPAIRER HOME VISIT 04/02/2025 Episode Documentation Update [facility] [address] [place] [phone] Margy Rubalcava 03/30/2025 Episode Documentation Update [facility] [address] [place] [phone] Margy Rubalcava 03/29/2025 3:00 PM EDT Home Care Visit [facility] [address] [place] [phone] Thao Kennedy POWER LINE INSTALLER AND REPAIRER HOME VISIT 03/29/2025 11:30 AM EDT Home Care Visit [facility] [address] [place] [phone] Shakira Hand RN SN HOME VISIT 03/29/2025 Telephone [facility] [address] [phone] Janay Naidu Care Coordination 03/29/2025 Episode Documentation Update [facility] [address] [place] [phone] Margy Rubalcava 03/28/2025 2:32 PM EDT - 03/28/2025 11:59 PM EDT Hospital Encounter [facility], [facility] Scan - [facility] [address] [place] [phone] Antione Segura PA-C Discharge Disposition: Home or Self Care 03/28/2025 9:40 AM EDT Office Visit [facility] [address] [place] [address] Antione Segura PA-C Acute right-sided low back pain without sciatica (Primary Dx); Depression, unspecified depression type; Dizziness and giddiness; Acute on chronic hypoxic respiratory failure 03/28/2025 Telephone [facility] [address] [place] [address] Janay Naidu Care Coordination 03/28/2025 Telephone [facility] [address] [place] [address] Antione Segura PA-C Results 03/28/2025 Procedure Pass [facility], Ct Scan - [address] [address] 03/28/2025 Episode Documentation [facility] [address] [place] [phone] Margy Rubalcava 03/27/2025 [facility] [address] [place] [phone] Thao Kennedy POWER LINE INSTALLER AND REPAIRER HOME VISIT 03/21/2025 1:30 PM EDT [facility] [address] [place] [address] Shakira Hand RN SN OASIS RESUMPTION OF CARE (VERONIKA) 03/21/2025 Documentation [facility] [address] [place] [address] Antione Segura PA-C 03/20/2025 Home Health Resumption of Care Planning [facility] [address] [place] [phone] Koki Simons RN 03/16/2025 4:30 AM EDT [facility] [address] [place] [address] Shakira Hand RN SN OASIS TRANSFER 03/15/2025 Refill [facility] [address] [place] [address] Antione Segura PA-C Medication Refill 03/13/2025 Orders Only [facility] [address] [place] [address] Provider, MD Omar 03/08/2025 1:00 AM EDT Home Care Visit [facility] [address] [place], [place] [phone] Rich Mariscal LPN HOME VISIT 03/08/2025 Refill [facility] [address] [place] [address] Antione Segura PA-C Medication Refill 03/08/2025 Refill [facility] [address] [place] [address] Pete Hicks PA-C Medication Refill 03/08/2025 Refill [facility] [address] [place] [address] Antione Segura PA-C Medication Refill 03/06/2025 Episode Documentation Update [facility] [address] [place], [place] [phone] BraticSixtoisallisonka 03/05/2025 Episode Documentation Update [facility] [address] [place], [place] [phone] Bratic Stanislavka 03/04/2025 Episode Documentation Update [facility] [address] [place], [place] [phone] Bratic Stanislavka 03/02/2025 Episode Documentation Update [facility] [address] [place], [place] [phone] BraSixto lintonislacoleman 03/02/2025 Telephone [facility] [address] [place] [address] Antione Segura PA-C [facility] referral request 03/01/2025 11:00 AM EDT Home Care Visit [facility] [address] [place] [address] Rich Mariscal RN CLINICAL REVIEW HOME VISIT 03/01/2025 Refill [facility] [address] [place] [address] Vania Matamoros [place] 02/27/2025 Refill [facility] [address] [place], [place] [phone] Antione Segura PA-C Medication Refill 02/26/2025 Episode Documentation Update [facility] [address] [place] [address] Margy Rubalcava 02/23/2025 11:30 AM EDT Home Care Visit [facility] [address] [place] [address] Shakira Hand RN SN OASIS RECERTIFICATION/FUP 02/23/2025 Plan of Care Documentation [facility] [address] [place] [address] 02/21/2025 Episode Documentation Update [facility] [address] [place] [address] Margy Rubalcava 02/20/2025 Orders Only [facility] [address] [place] [address] Provider, MD Omar 02/19/2025 10:30 AM EDT Home Care Visit [facility] [address] [place] [address] Shakira Hand RN SN PRN HOME VISIT 02/19/2025 9:00 AM EDT Home Care Visit [facility] [address] [place] [address] Krysta Charles POWER LINE INSTALLER AND REPAIRER HOME VISIT 02/16/2025 Home Care Visit [facility] [address] [place], [place] [phone] Laquita Mchugh, PT TELEPHONE ENCOUNTER 02/16/2025 Telephone [facility] [address] [place] [address] Antione Segura PA-C Referral ([facility] Pulmonology) 02/16/2025 Home Care Visit [facility] [address] [place], [place] [phone] Krysta Charles POWER LINE INSTALLER AND REPAIRER HOME VISIT 02/15/2025 9:00 AM EDT Office Visit [facility] [address] [place] [address] Antione Segura PA-C Pulmonary emphysema, unspecified emphysema type (Primary Dx) 02/15/2025 Home Care Visit [facility] [address] [place] [address] Laquita Mchugh, PT TELEPHONE ENCOUNTER 02/14/2025 1:30 PM EDT Home Care Visit [facility] [address] [place] [address] Shakira Hand RN SN HOME VISIT 02/14/2025 Home Care Visit [facility] [address] [place], [place] [phone] Laquita Mchugh, PT TELEPHONE ENCOUNTER 02/14/2025 Home Care Visit [facility] [address] [place], [place] [phone] Laquita Mchugh, PT TELEPHONE ENCOUNTER 02/14/2025 Orders Only [facility] [address] [place] [address] ProviderOmar MD 02/14/2025 Documentation [facility] [address] [place] [address] Antione Segura PA-C 02/14/2025 Home Care Visit [facility] [address] [place] [phone] Krysta Charles POWER LINE INSTALLER AND REPAIRER HOME VISIT 02/13/2025 Telephone [facility] [address] [phone] Antione Segura PA-C Appointment (Tcm+discharged 02/09/25 ) 02/12/2025 12:30 PM EDT Home Care Visit [facility] [address] [place] [address] Shakira Hand, RN SN OASIS RESUMPTION OF CARE (VERONIKA) 02/11/2025 Home Care Visit [facility] [address] [place] [address] Maritza Calix, RN CASE COMMUNICATION 02/09/2025 Home Health Resumption of Care Planning [facility] [address] [place] [address] Koki Simons, HUA 02/08/2025 1:00 AM EDT Home Care Visit [facility] [address] [place] [address] Shakira Hand, HUA SN OASIS TRANSFER 02/05/2025 Home Care Visit [facility] [address] [place] [address] Krysta Charles CASE COMMUNICATION 02/01/2025 3:30 PM EDT Home Care Visit [facility] [address] [place] [address] Yane Lanza, PT PT HOME VISIT 02/01/2025 4:00 AM EDT Home Care Visit [facility] [address] [place] [address] Krysta Charles POWER LINE INSTALLER AND REPAIRER HOME VISIT 01/31/2025 1:30 PM EDT Home Care Visit [facility] [address] [place] [phone] Shakira Hand RN SN HOME VISIT 01/29/2025 3:30 PM EDT Home Care Visit [facility] [address] [place] [phone] Yane Lanza, PT PT HOME VISIT 01/29/2025 8:15 AM EDT Home Care Visit [facility] [address] [place] [address] Krysta Charles POWER LINE INSTALLER AND REPAIRER HOME VISIT 01/29/2025 Refill [facility] [address] [place] [address] Antione Segura PA-C Medication Refill 01/29/2025 Telephone [facility] [address] [place] [address] Antione Segura PA-C Request For Order(s) 01/26/2025 Home Care Visit [facility] [address] [place] [address] Karlene Berumen, HUA TELEPHONE ENCOUNTER 01/25/2025 2:30 PM EDT Home Care Visit [facility] [address] [place] [address] Yane Lanza, PT PT EVALUATION 01/25/2025 4:00 AM EDT Home Care Visit [facility] [address] [place] [address] Krysta Charles POWER LINE INSTALLER AND REPAIRER HOME VISIT 01/25/2025 1:00 AM EDT Home Care Visit [facility] [address] [place] [address] Karlene Berumen, HUA SN HOME VISIT 01/24/2025 Telephone [facility] [address] [place] [address] Antione Segura PA-C PFT 01/24/2025 Telephone [facility] [address] [place] [address] Eliana Prabhakar CNP Breast Cancer Screening 01/23/2025 9:00 AM EDT Home Care Visit [facility] [address] [place] [address] Rich Mariscal LPN HOME VISIT 01/23/2025 4:30 AM EDT Home Care Visit [facility] [address] [place] [address] Krysta Charles POWER LINE INSTALLER AND REPAIRER HOME VISIT 01/22/2025 Home Care Visit [facility] [address] [place] [address] Yane Lanza, PT TELEPHONE ENCOUNTER 01/22/2025 Refill [facility] [address] [place] [address] Antione Segura PA-C Medication Refill 01/18/2025 11:00 AM EDT Home Care Visit [facility] [address] [place] [address] Shakira Hadn RN SN HOME VISIT 01/18/2025 9:15 AM EDT Home Care Visit [facility] [address] [place] [address] Krysta Charles POWER LINE INSTALLER AND REPAIRER HOME VISIT 01/18/2025 Telephone [facility] [address] [place] [address] Antione Segura PA-C Medication Question (Gabapentin) 01/18/2025 Episode Documentation Update [facility] [address] [place] [address] Mayra Burton 01/17/2025 2:30 PM EDT Home Care Visit [facility] [address] [place] [address] CharlesKrysta POWER LINE INSTALLER AND REPAIRER HOME VISIT 01/17/2025 Telephone [facility] [address] [place] [place] [address] Elida Lindquist, HUA VNA Orders 01/15/2025 Episode Documentation Update [facility] [address] [place] [phone] Mayra Burton 01/14/2025 Home Care Visit [facility] [address] [place] [phone] Raya Howard, PT TELEPHONE ENCOUNTER from Last 3 Months Immunizations Immunization Administration [...] EST Office Visit [facility] [address] [place] [address] Antione Segura PA-C [address] [place] [address] [email or web address] 04/16/2025 3:00 PM EST Appointment [facility] [address] [place] [phone] Thao Kennedy [address] [place], [place] [phone] 04/18/2025 1:30 AM EST Appointment [facility] [address] [place] [phone] Shakira Hand RN [address] [place] [address] 04/19/2025 2:00 AM EST Appointment [facility] [address] [place] [phone] Kennedy, Thao L [address] [place] [address] 04/23/2025 2:00 AM EST Appointment [facility] [address] [place] [phone] Kennedy, Thao L [address] [place] [address] 04/24/2025 9:40 AM EST Office Visit [facility] [address] [place] [address] Antione Segura PA-C [address] [place] [address] 04/25/2025 1:30 AM EST Appointment [facility] [address] [place] [phone] Shakira Hand, HUA [address] [place] [address] 06/25/2025 9:30 AM EST Telemedicine [facility] [address] [place] [address] Jn Cardoza MD [address] [facility], [address]nd [place] [address] [email or web address] Health Maintenance Due Date Last Done Comments [...] 12/21/2025 12/21/2024, 08/27/2022, 09/05/2021, Additional history exists DEPRESSION SCREENING 03/21/2026 03/21/2025, 03/21/20 SMOKING Hx and SMOKELESS TOBACCO SCREENING 03/28/2026 03/28/2025 CREATININE LEVEL 04/11/2026 04/11/2025, , 02/08/2025, Additional history exists POTASSIUM LEVEL 04/11/2026 04/11/2025, 02/13, 02/08/2025, Additional history exists LIPID PANEL 08/22/2026 08/22/2021, [...] REPORT ONLY Routine 04/11/2025 8:35 AM EDT OUTSIDE POTASSIUM LEVEL Routine 04/11/2025 OUTSIDE ALT LEVEL Routine 04/11/2025 OUTSIDE SERUM CREATININE LEVEL Routine 04/11/2025 OUTSIDE LAB Routine 04/08/2025 1:09 PM EDT [...] Routine 02/08/2025 OUTSIDE ALT LEVEL Routine 02/05/2025 HM LDCT PROCEDURE FOR RESULT ENTRY ONLY Routine 12/21/2024 LIPID PANEL Routine 08/22/2021 8:13 AM EST Mixed hyperlipidemia PAP TEST Routine 02/22/2020 12:00 AM EDT HEPATITIS C ANTIBODY, QUALITATIVE Routine 05/25/2019 10:24 AM EST Need for hepatitis C screening test HM COLONOSCOPY FOR RESULT ENTRY ONLY Routine 12/04/2013 from Last 3 Months or Most Recently Relevant to Health Maintenance Results * Outside XR??Chest Report Only (04/11/2025 8:35 AM EDT) Result [facility] Provider IMG XR CHEST Final Res ult * Outside Potassium Level (04/11/2025) Only the most recent of3 resultswithin the time period is included. Potassium level - External 4.0 3.4 - 5.0 mmol/L Result [facility] Provider MD LAB BLOOD ORDERABLES Mariya l Result * (ABNORMAL) Outside Serum Creatinine Level (04/11/2025) Only the most recent of3 resultswithin the time period is included. Creatinine, serum - External 0.68(A) 0.8 - 1.3 mg/dL Result [facility] MD LAB BLOOD ORDERABLES Mariya l Result * Outside ALT Level (04/11/2025) Only the most recent of3 resultswithin the time period is included. ALT - External 20 5 - 30 U/L Result [facility] Provider LAB BLOOD ORDERABLES Mariya l Result * Outside Lab (04/08/2025 1:09 PM EDT) Result [facility] Provider LAB BLOOD BKR ORDERABLES Final Result * Outside Imaging Report Only (04/08/2025 7:50 AM EDT) Result [facility] Provider IMG XR CHEST Final Res ult * US Soft Tissues of Head and Neck (Salivary Gland) (04/06/2025 12:20 PM EDT) MGB IMG RECOMMENDATION COMMENT parotid lesion [employer] [facility] [employer] Anatomical Region Laterality Modality Neck, Head [...] clinician's provided indication for this examination in [facility]: Parotid region mass TECHNIQUE: Ultrasound of [...] clinician's provided indication for this examination in [facility]:Parotid region mass TECHNIQUE: Ultrasound of the [...] CONTRAST (03/28/2025 2:46 PM EDT) MGB IMG SIGHT MOUNTER COMMENT see results [facility] Anatomical Region Laterality Modality Head Computed Tomogra phy 03/28/2025 2:54 PM EDT Impressions 03/28/2025 3:15 PM EDT 1. No acute intracranial findings. No evidence of acute infarct or hemorrhage. 2. Left parotid gland nodular density. Follow-up parotid ultrasound or neck CT with contrast recommended. A clinically significant result was initiated on 03/28/2025 3:15 PM, Message ID [id number]. Narrative 03/28/2025 3:[address] HEAD [...] clinician's provided indication for this examination in [facility]: *Dizziness, persistent/recurrent, cardiac or vascular cause [...] was initiated on 03/28/2025 3:15 PM,Message ID [id number]. Antione Segura PA-C IMG CT HEAD/NECK Final Result * Outside XR??Chest Report Only (03/13/2025 8:23 AM EDT) Historical Provider MD DAWKINS XR CHEST Final Res ult * Outside Imaging Report Only (02/17/2025 11:14 AM EDT) Historical Provider IMMadyson XR CHEST Final Res ult * Outside US Breast Report Only (02/14/2025 4:39 PM EDT) Historical Provider MD DAWKINS US BREAST Final Res ult * MAMMOGRAPHY FOR RESULT ENTRY ONLY (02/14/2025 2:39 PM EDT) Historical Provider MD HEALTH MAINTENANCE Final Result * LDCT PROCEDURE FOR RESULT ENTRY ONLY (12/21/2024) LDCT - External CTA chest, juanito pulm nodules Historical Provider MD HEALTH MAINTENANCE Final Result * (ABNORMAL) Lipid panel (08/22/2021 8:13 AM EST) HDL 54 mg/dL [facility] Comment: Interpretation <40 mg/dL: Low HDL cholesterol (major risk factor for CHD) Greater than or equal to 60 mg/dL: High HDL cholesterol ( negative risk factor for CHD) HDL - cholesterol is affected by a number of factors, e.g. smoking, excerise, hormones, sex and age. CHOLESTEROL 237 0 - 240 mg/dL [facility] TRIGLYCERIDES 201(H) 30 - 160 mg/dL [facility] LDL 143(H) 50 - 129 mg/dL [facility] Comment: LDL levels in terms of risk for coronary heart disease: <100 mg/dL: Optimal 100-129 mg/dL: Near or above optimal 130-159 mg/dL: Borderline high 160-189 mg/dL: High >190 mg/dL: Very High CARDIAC RISK RATIO 4.4 3.3 - 4.4 [facility] Blood 08/22/2021 8:13 AM EST 08/22/2021 8:17 AM EST Jennifer Duke BRACER LAB BLOOD BKR ORDERABLES Final Result [address] [address] * Pap Smear (02/22/2020 12:00 AM EDT) 02/22/2020 02/23/2020 8:2 1 AM EDT Narrative SEE NARRATIVE - 02/27/2020 11:20 AM EDT [address] [address] Hat Brusher Machine: Perla Luis MD CERAMICS MACHINE OPERATOR Cytology Report FINAL DIAGNOSIS A. PAP SMEAR [...] 52, 56, 58, 59, 66, 68) by [employer] HR-HPV analysis. Clinical correlation is advised. This HPV test was performed at [facility], [address] [place] [address]. This test has been FDA approved for [employer] cervical cytology specimens. The accuracy and precision of this test for all other specimen sources has been verified in the Cytopathology Laboratory of the [facility] and has not been cleared or approved by the U.S. Food and Drug Administration. Clinical correlation is advised. CLINICAL HISTORY Date of Last Menstrual Period: 2009 Menstrual History: Post Menopausal Other Clinical Conditions: Screening Pap SPECIMEN SOURCE A: PAP SMEAR (SUREPATH) CE Patient Name: MAYRA CONSTANTINO : 1965 (Age: 55) Sex: F Institution: [facility] Location: [facility] Date of Collection: 02/22/2020 Date of Reported: 02/27/2020 11:20 Results to: Jennifer Duke MSN, BSN us Jennifer Duke NP CYTOLOGY ORDERABLES Final Resul t SEE NARRATIVE * Hepatitis C antibody, qualitative (05/25/2019 10:24 AM EST) HCV NON-REACTIV E NON-REACTI VE [facility] Blood 05/25/2019 10:2 4 AM EST 05/25/2019 10:26 AM EST us Jennifer Duke NP LAB BLOOD BKR ORDERABLES Final Result Performing Organization Address City/State/[facility] Co de Phone Number [address] [address] * COLONOSCOPY FOR RESULT ENTRY ONLY (12/04/2013) Colonoscopy repeat 10 yrs us Historical Provider MD HEALTH MAINTENANCE Final Result from Last 3 Months or Most Recently Relevant to Health Maintenance Insurance [facility] MEDICARE A [facility] MEDICARE A [facility] MEDICARE A [facility] MEDICARE A [facility] MEDICARE A [facility] MEDICARE A Advance Directives For more information, please contact: [phone] (9AM - 5PM [facility], Wednesday-Wednesday) Documents on File Type Date Recorded Patient Armhole Sewer Expl anation Healthcare Proxy 03/28/2025 [facility] Health Care Proxy Form scan 03/28/2025 MOL[facility] 02/15/2025 MOLST * Full Code (Latest Code Status on File) Date Activated Date Inactivated Comments 02/15/2025 9:52 AM Question Answer Comments Code Status Confirmed With: Patient Care Teams Can Worker Relationship Specialty Start Date End Date Antione Segura PA-C [address] [place] [address] [email or web address] PCP - General Physician Tripoler 10/12/24 Jn Cardoza MD [address] [place] [address], 2nd [place] [address] Neurology 02/03/24 Denys Henrqiuez MD [address] [place] [address] [place] [address] Pulmonary Disease 02/03/24 Rhett Cortez MD [address] [place] [address] [email or web address] Insurance Assigned Provider 01/20/25 Additional Source Comments The information contained in this document represents components of the legal health record. It is not the complete legal health record.[facility]
--- OUTSIDE RECORDS SUMMARY | 2025-04-16 07:12 | XMS_ITS | Encounter Summary ---
Author Organization [facility] Address [address] [place] [address] Phone Care Team Providers Care Gmat Tutor Name Role Phone Jn Cardoza MD Unavailable Denys Henriquez MD Unavailable [phone] Antione SeguraC Primary Care Provider Rhett Cortez MD Unavailable Reason for Visit * Reason Onset Date Comments TCM Visit 04/10/2025 Needs appt Encounter Details Date Type Department Care Team (Late st Contact Info) Description 04/10/2025 Telephone [facility] Internal Medicine [address] [place], [place] [phone] Antione Segura PA-C [address] [place], [place] [phone] [email or web address] TCM Visit (Needs appt ) Social History [...] Care Management New Patient: YES/NO: no Hospitalization Name:[facility] Discharge Date:04/09/2025 Reason for Visit+ Diagnosis: pt [...] from discharge date Additional Note (if applicable): [facility] CSS Agent (Please do not reply to this user, as this inbox is not monitored. Thank you.) Thank you. documented in this encounter Plan of Treatment Upcoming Encounters Date Type Department Care Team (Late st Contact Info) Description 04/16/2025 2:00 PM EST Office Visit [facility] Internal Medicine [address] [place] [address] Antione Segura PA-C [address] [place] [address] [email or web address] 04/16/2025 3:00 PM EST Appointment [facility] [address] [place] [phone] Thao Kennedy [address] [place] [phone] 04/18/2025 1:30 AM EST Appointment [facility] [address] [place] [phone] Shakira Hand RN [address] [place] [address] 04/19/2025 2:00 AM EST Appointment [facility] [address] [place] [address] Thao Kennedy 30 [place] [address] 04/23/2025 2:00 AM EST Appointment [facility] [address] [place] [phone] Thao Kennedy L [address] [place] [address] 04/24/2025 9:40 AM EST Office Visit [facility] Internal Medicine [address] [place] [address] Antione Segura PA-C 40 [place] [address] 04/25/2025 1:30 AM EST Appointment [facility] [address] [place] [phone] Shakira Hand, HUA [address] [place] [phone] 06/25/2025 9:30 AM EST Telemedicine [facility] Neurology [address] [place] [address] Jn Cardoza MD 22 [facility], 2nd [place] [address] documented as of this encounter Visit Diagnoses Not on filedocumented in this encounter Additional Health Concerns Assessment Noted Time PHQ-9 Depression Total Score: 23 025 3:04 PM EDT PHQ-2 Depression Total Score: 5 03/21/20 25 3:04 PM EDT documented as of this encounter Care Teams Gmat Tutor Relationship Specialty Start Date End Date Antione Segura PA-C [address] [place] [address] PCP - General Physician Director Of Public Safety 10/12/24 Jn Cardoza MD 22 [facility], 2nd [place] [address] [email or web address] Neurology 02/03/24 Denys Henriquez MD [address] [place] [address] [place] [address] Pulmonary Disease 02/03/24 Rhett Cortez MD [address] [place] [phone] [email or web address] Insurance Assigned Provider 01/20/25 documented as of this encounter Additional Source Comments The information contained in this document represents components of the legal health record. It is not the complete legal health record.[facility]
--- OUTSIDE RECORDS SUMMARY | 2025-04-16 07:12 | XMS_ITS | Encounter Summary ---
Author Organization [facility] Address [address] [place] [address] Phone Care Team Providers Care Internet Marketing Executive Name Role Phone Charbel Webber MD Unavailable Alverto Gandara MD Unavailable Maikel Rawls MD Unavailable [phone] Lang Germain MD Unavailable Jennifer Duke CLIENT SERVICE ASSOCIATE Primary Care Provider Lang Germain MD Primary Care Provider Jennifer Duke CLIENT SERVICE ASSOCIATE Unavailable [phone] Jennifer Duke CLIENT SERVICE ASSOCIATE Primary Care Provider Lang Germain MD Primary Care Provider Jennifer Duke CLIENT SERVICE ASSOCIATE Primary Care Provider Sirisha Huertas STATE TESTED NURSING ASSISTANT Primary Care Provider [phone] Jn Cardoza MD Unavailable Denys Henriquez MD Unavailable Liyah Patterson MD Unavailable Liyah Patterson MD Primary Care Provider Antione Segura PA-C Primary Care Provider Rhett Cortez MD Unavailable Encounter Details Date Type Department Care Team (Late Contact Info) Description 03/20/2019 Telephone [facility] Internal Medicine [address] [place] [address] Jennifer Duke, CLIENT SERVICE ASSOCIATE [address] [facility] [address] [place] [address] [email or web address] Social History Tobacco Use [...] Encounters Date Type Department Care Team (Late Contact Info) Description 04/16/2025 2:00 PM EST Office Visit [facility] Internal Medicine 40 [place] [address] Antione Segura PA-C 40 [place] [address] 04/16/2025 3:00 PM EST Appointment [facility] [address] [place] [phone] Thao Kennedy 30 [place], [place] [phone] 04/18/2025 1:30 AM EST Appointment [facility] [address] [place] [phone] Shakira Hand RN [address] [place] [address] 04/19/2025 2:00 AM EST Appointment [facility] [address] [place] [phone] Kennedy, Thao L 30 [place] [address] 04/23/2025 2:00 AM EST Appointment [facility] [address] [place] [phone] Kennedy, Thao L 30 [place] [address] 04/24/2025 9:40 AM EST Office Visit [facility] Internal Medicine 40 [place] [address] Antione Segura PA-C 40 [place] [address] [email or web address] 04/25/2025 1:30 AM EST Appointment [facility] [address] [place] [phone] Shakira Hand RN [address] [place] [address] 06/25/2025 9:30 AM EST Telemedicine [facility] Neurology [address] [place] [address] Jn Cardoza MD 22 [facility], 2nd [place] [address] [email or web address] documented as of this encounter Visit Diagnoses Not on filedocumented in this encounter Additional Health Concerns Assessment Noted Time PHQ-2 Depression Total Score: 0 11/18/19 19 2:05 PM EDT documented as of this encounter Care Teams Internet Marketing Executive Relationship Specialty Start Date End Date Jennifer Duke, CLIENT SERVICE ASSOCIATE [address] [place] [address] [email or web address] PCP - General Family Medicine 12/14/18 11/12/19 Lang Germain MD [address] [place] [address] [email or web address] PCP - General Internal Medicine 11/13/19 12/03/19 Jennifer Duke NP [address] [place] [address] [email or web address] PCP - General Family Medicine 12/04/19 01/23/20 Lang Germain MD [address] [place] [address] [email or web address] PCP - General Internal Medicine 01/24/20 01/30/20 Jennifer Duke CLIENT SERVICE ASSOCIATE [address] [place] [address] [email or web address] PCP - General Family Medicine 01/31/20 06/22/23 Sirisha Huertas FNP [address] [place] [address] [email or web address] PCP - General Nurse Practitioner 06/23/23 08/03/24 Liyah Patterson MD [address] [address] PCP - General Family Medicine 08/04/24 10/11/24 Antione Segura PA-C [address] [place] [address] PCP - General Physician Meters Superintendent 10/12/24 Charbel Webber MD [address] [place] [address], [address] [place] [address] [email or web address] Historical LMR Provider 04/01/17 0 Alverto Gandara MD [address] [place] [address] [email or web address] Historical LMR Provider 04/01/17 12/03/19 Maikel Rawls MD [address] [place] [address] [email or web address] Historical LMR Provider 04/01/17 12/03/19 Lang Germain MD [address] [place] [address] [email or web address] Insurance Assigned Provider 09/18/23 02/19/24 Jennifer Duke, [place] [address] [place] [address] [email or web address] Nurse Practitioner Family Medicine 11/13/19 01/30/20 Jn Cardoza MD [address] [place] [address], [address] [place] [address] Neurology 02/03/24 Denys Henriquez MD [address] [place] [address] [place] [address] Pulmonary Disease 02/03/24 Liyah Patterson MD [address] [address] [email or web address] Insurance Assigned Provider 02/19/24 01/20/25 Rhett Cortez MD [address] [place] [address] Insurance Assigned Provider 01/20/25 documented as of this encounter Additional Source Comments The information contained in this document represents components of the legal health record. It is not the complete legal health record.[facility]
--- OUTSIDE RECORDS SUMMARY | 2025-04-16 07:13 | XMS_ITS | Encounter Summary ---
Author Organization [facility] Address [address] [place] [address] Phone Care Team Providers Care Warp Tying Machine Knotter Name Role Phone Jn Cardoza MD Unavailable Denys Henriquez MD Unavailable Antione SeguraC Primary Care Provider Rhett Cortez MD Unavailable Reason for Visit * Reason Onset Date Comments Forms & Paperwork 04/10/2025 Encounter Details Date Type Department Care Team (Late st Contact Info) Description 04/10/2025 Telephone [facility] Internal Medicine [address] [place], [place] [phone] Antione Segura PA-C 40 [place] [address] [email or web address] Forms & Paperwork Social History Tobacco Use [...] for PCP to complete. Please fax to [phone] once completed. documented in this encounter Plan of Treatment Upcoming Encounters Date Type Department Care Team (Late st Contact Info) Description 04/16/2025 2:00 PM EST Office Visit [facility] Internal Medicine [address] [place] [address] Antione Segura PA-C 40 [place] [address] 04/16/2025 3:00 PM EST Appointment [facility] 30 [place], [place] [phone] Thao Kennedy 30 [place] [address] 04/18/2025 1:30 AM EST Appointment [facility] [address] [place] [phone] Shakira Hand RN 168 [place] [address] 04/19/2025 2:00 AM EST Appointment [facility] [address] [place] [phone] Kennedy, Thao L [address] [place] [address] 04/23/2025 2:00 AM EST Appointment [facility] [address] [place] [phone] Kennedy, Thao L [address] [place] [phone] 04/24/2025 9:40 AM EST Office Visit [facility] Internal Medicine [address] [place] [address] Antione Segura PA-C 40 [place] [address] [email or web address] 04/25/2025 1:30 AM EST Appointment [facility] [address] [place] [phone] Shakira Hand RN [address] [place] [address] 06/25/2025 9:30 AM EST Telemedicine [facility] Neurology [address] [place] [address] Jn Cardoza MD [address] [place] [address], 2nd [place] [address] documented as of this encounter Visit Diagnoses Not on filedocumented in this encounter Additional Health Concerns Assessment Noted Time PHQ-9 Depression Total Score: 23 025 3:04 PM EDT PHQ-2 Depression Total Score: 5 03/21/20 25 3:04 PM EDT documented as of this encounter Care Teams Warp Tying Machine Knotter Relationship Specialty Start Date End Date Antione Segura PA-C 40 [place] [address] [email or web address] PCP - General Physician Magnetometer Operator 10/12/24 Jn Cardoza MD [address] [place] [address], 2nd [place] [address] Neurology 02/03/24 Denys Henriquez MD [address] [place] [address] [place] [address] Pulmonary Disease 02/03/24 Rhett Cortez MD [address] [place] [address] [email or web address] Insurance Assigned Provider 01/20/25 documented as of this encounter Additional Source Comments The information contained in this document represents components of the legal health record. It is not the complete legal health record.[facility]
--- OUTSIDE RECORDS SUMMARY | 2025-04-16 07:13 | XMS_ITS | Encounter Summary ---
Author Organization [facility] Address [address] [place] [address] Phone Care Team Providers Care Manager Title Name Role Phone Jn Cardoza MD Unavailable Denys Henriquez MD Unavailable [phone] Antione Segura PA-C Primary Care Provider [phone] Rhett Cortez MD Unavailable Encounter Details Date Type Department Care Team (Late st Contact Info) Description 04/09/2025 Orders Only [facility] Internal Medicine [address] [place] [address] Provider, MD Omar [address] [place] [address] Social History Tobacco Use Types Packs/Day [...] Description 04/16/2025 2:00 PM EST Office Visit [facility] Internal Medicine [address] [place] [address] Antione Segura PA-C 40 [place] [address] 04/16/2025 3:00 PM EST Appointment [facility] [address] [place] [phone] Kennedy, Thao [address] [address] 04/18/2025 1:30 AM EST Appointment [facility] [address] [place] [phone] Shakira Hand, HUA [address] [place] [address] 04/19/2025 2:00 AM EST Appointment [facility] [address] [place] [phone] Kennedy, Thao L 30 [place] [address] 04/23/2025 2:00 AM EST Appointment [facility] [address] [place] [phone] Kennedy, Thao L [address] [place] [address] 04/24/2025 9:40 AM EST Office Visit [facility] Internal Medicine 40 [place] [address] Antione Segura PA-C 40 [place] [address] [email or web address] 04/25/2025 1:30 AM EST Appointment [facility] 30 [place] [phone] Shakira Hand RN [address] [place] [address] [email or web address] 06/25/2025 9:30 AM EST Telemedicine [facility] Neurology 22 [place] [address] Jn Cardoza MD 22 [facility], 2nd [place] [address] [email or web address] documented as of this encounter Procedures Procedure Name Priority Date/Time Associated Diagnosis Comments OUTSIDE LAB Routine 04/08/2025 1:09 PM EDT OUTSIDE IMAGING Routine 04/08/2025 7:50 AM EDT documented in this encounter Results * Outside Lab (04/08/2025 1:09 PM EDT) us Historical Provider LAB BLOOD BKR ORDERABLES Final Result * Outside Imaging Report Only (04/08/2025 7:50 AM EDT) us Historical Provider IMG XR CHEST Final Res ult documented in this encounter Visit Diagnoses Not on filedocumented in this encounter Additional Health Concerns Assessment Noted Time PHQ-9 Depression Total Score: 23 025 3:04 PM EDT PHQ-2 Depression Total Score: 5 03/21/20 25 3:04 PM EDT documented as of this encounter Care Teams Manager Title Relationship Specialty Start Date End Date Antione Segura PA-C 40 [place] [address] [email or web address] PCP - General Physician Decker Operator 10/12/24 Jn Cardoza MD [address] [place] [address], 2nd [place] [address] [email or web address] Neurology 02/03/24 Denys Henriquez MD [address] [place] [address] [place] [address] Pulmonary Disease 02/03/24 Rhett Cortez MD [address] [place] [address] [email or web address] Insurance Assigned Provider 01/20/25 documented as of this encounter Additional Source Comments The information contained in this document represents components of the legal health record. It is not the complete legal health record.[facility]
[2025-04-16 07:30] LABS: Venous Blood Gas Refer to POC result
[2025-04-16 07:31] LABS: VBG HCO3 38 mmol/L (22-26); VBG O2 % Saturation 97.0 %
--- NOTE | 2025-04-16 08:39 | PHA.MEDREC ---
Pharmacy Consult ? Medication Reconciliation Pharmacy has completed the medication reconciliation. Pt was here and discharged 3 days ago, used med [employer] from that time.
--- NOTE | 2025-04-16 09:08 | HO.NURTONUR ---
Pt is a 60yo F from home for inc SOB/77% on 2LNC. Pt with recent hospital admission for COPD exacerbation. Pt was given IV mag, steroids, and breathing treatments. Bld gas shows compensated hypercarbia. Tachypneic on arrival and labored. Pt was initially placed on 6L oxymask with minimal relief. Temporarily placed on bipap. Pt currently on 2L oxymask satting 92-93%. Denies CP. Afebrile. Pt to be admitted for COPD exacerbation, MD does not believe this is an infectious disease process. NSR on the monitor. SBP 120s-130s. Denies n/v/d. 20gRFA. PMH- COPD (O2 dependent at home), CHF, JUANITO, HTN, anxiety.
--- NOTE | 2025-04-16 10:56 | PM.IMHP ---
History of Present Illness Date of Service: 04/16/25 Chief Complaint: Low oxygen saturation 60-year-old female with a history of COPD, CHF, aortic stenosis, and hypercapnic respiratory failure presenting to the ED for evaluation of low oxygen saturation. She has a tooth infection and a cracked tooth and has pain when she has to put the cpap mask. She also has Trigeminal neuralgia and that makes it painful to put the mask on. She was discharged from this hospital yesterday for similar complaints. Patient reports her home O2 was 77%. The patient denies associated chest pain, fever/chills, vomiting, diarrhea, recent sick contacts, or recent trauma. The patient reports she has been compliant with her medications. She is currently on amoxicillin for the tooth infection. She was place don bipap in the ED and succesfully weaned off. Review of Systems Review of Systems: Denies any recent fever chills or decrease in appetite respiratory Chronic respiratory failure on oxygen cardiovascular denied chest pain gastrointestinal denies any dysphagia abdominal pain nausea vomiting or diarrhea genitourinary denies any dysuria frequency or hematuria musculoskeletal denies any joint pain or swelling neuropsych denies any weakness or seizures all other systems reviewed are negative [facility] Medical History Chronic lung disease Morbid obesity Pulmonary nodules Diastolic heart failure Chronic lung disease Hypoxia Panic disorder Hypertension Chronic hypercapnic respiratory failure Aortic stenosis Asthma Hypogammaglobulinemia Smoker JUANITO (obstructive sleep apnea) Elevated troponin COPD (chronic obstructive pulmonary disease) Trigeminal neuralgia Mixed hyperlipidemia Peripheral neuropathy Tobacco use disorder Mood disorder Surgical History History of esophagogastroduodenoscopy (EGD) History of colonoscopy History of lumbar discectomy History of tubal ligation History of excision of mass History of shoulder surgery Social History Household Members: Spouse Household Members Other:: dog Housing: Condominium Do you presently have visiting nurse or other home services: Yes ([facility]) Alcohol intake: current Alcohol intake frequency: holidays/special occasions only Alcohol type: hard liquor Comment: pt refusing bed alarm Patient Tobacco Use Status: Former Tobacco user Tobacco use type: Cigarette Cigarette Packs Per Day: 4 Cigarettes Per Day: 80.0 Years Smoked: 40 e-Cigarette/Vaping Use: Never Used Second Hand Smoke Exposure: No Substance Use Type: Marijuana Advance Directives: Yes Advance Directives on File: Yes Advance Directives Date on File: 03/09/23 Do you have a plan to hurt others: No Plan Patient : No service: No Meds Allergies Allergy/AdvReac Type Severity Reaction Status Date / Time Iodinated Contrast Media (IV Allergy Intermediate HIVES Verified 04/16/25 05:08 CONTRAST) latex (LATEX) Allergy Unknown RASH Verified 04/16/25 05:08 adhesive tape Allergy Rash Verified 04/16/25 05:08 morphine (MORPHINE) AdvReac Unknown VOMITING Verified 04/16/25 05:08 Active Medications: Current Medications Acetaminophen (Acetaminophen 325 Mg Tablet) 650 mg PO Q6H PRN PRN Reason: Pain, Mild 1-3,fever,headache Calcium Carbonate (Calcium Carbonate 750 Mg Tab.Chew) 750 mg PO Q4H PRN PRN Reason: Heartburn Enoxaparin Sodium (Enoxaparin Sodium 40 Mg/0.4 Ml Syringe) 40 mg SUBCUT Q24H [facility] Last Admin: 04/16/25 09:06 Dose: 40 mg Magnesium Hydroxide (Milk Of Magnesia 30 Ml Oral.Susp) 30 ml PO DAILY PRN PRN Reason: Constipation Melatonin (Melatonin 3 Mg Tablet) 6 mg PO BEDTIME PRN PRN Reason: Insomnia Sodium Chloride (0.9 % Sodium Chloride Flush 3 Ml Syringe) 3 ml IVFLUSH QSHIFT [facility] Home Medications ?Medication ?Instructions ?Recorded ?Confirmed ?Last Taken ?Type atorvastatin 80 mg tablet 80 mg PO DAILY@199903/04/23 04/16/25 04/10/25 History altxdanrhq-twaurnpjzqwck-vegreoob 1 tab PO DAILY MRX1 PRN Migraine 03/04/23 04/16/25 04/07/25 History 50 mg-325 mg-40 mg tablet Headache duloxetine 60 mg capsule,delayed 60 mg PO BID@0600,199903/04/23 04/16/25 04/11/25 History release gabapentin 300 mg capsule 1,200 mg PO TID@0600,1200,199903/04/23 04/16/25 04/11/25 12:00 History hyoscyamine sulfate 0.125 mg tablet 0.25 mg PO Q6H PRN Abdominal 03/04/23 04/16/25 04/07/25 History Discomfort Oxygen Home Use 04/16/23 02/26/25 10/28/24 History prazosin 2 mg capsule 2 mg PO DAILY@199904/16/23 04/16/25 04/11/25 History albuterol sulfate 90 mcg/actuation 2 puff inhalation Q4H PRN 01/31/24 04/16/25 04/12/25 History aerosol inhaler Shortness Of Breath Or Wheezing aspirin 81 mg tablet,delayed 81 mg PO DAILY@199905/22/24 04/16/25 04/10/25 History release calcium 600 mg (as 1 tab PO DAILY@199906/20/24 04/16/25 04/10/25 History carbonate)-vitamin D3 5 mcg (200 unit) tablet baclofen 20 mg tablet 20 mg PO TID@0600,1200,199910/29/24 04/16/25 04/11/25 12:00 History aripiprazole 5 mg tablet (Abilify) 5 mg PO DAILY@0600 12/01/24 04/16/25 04/11/25 History oxcarbazepine 300 mg tablet 300 mg PO BID@0600,199912/21/24 04/16/25 04/11/25 History lorazepam 0.5 mg tablet 0.5 mg PO BEDTIME@1999 MODERATE 01/04/25 04/16/25 04/10/25 History Anxiety polyethylene glycol 3350 17 17 g PO DAILY PRN Constipation 01/04/25 04/16/25 04/07/25 History gram/dose oral powder (Miralax) budesonide 160 mcg-glycopyr 9 2 inh inhalation BID@0600,1800 02/05/25 04/16/25 04/11/25 History mcg-formot 4.8 mcg/actuation HFA inhaler (Breztri Aerosphere) lorazepam 0.5 mg tablet 0.5 mg PO DAILY PRN Anxiety 02/05/25 04/16/25 04/07/25 History roflumilast 500 mcg tablet 500 mcg PO DAILY@0600 02/05/25 04/16/25 04/11/25 History (Daliresp) valsartan 40 mg tablet 40 mg PO DAILY@0600 02/05/25 04/16/25 04/11/25 History verapamil 120 mg tablet 120 mg PO BID@0600,199902/05/25 04/16/25 04/11/25 History omeprazole 20 mg capsule,delayed 20 mg PO DAILY@0600 03/01/25 04/16/25 04/11/25 History release prednisone 5 mg tablet 5 mg PO Q48H 03/01/25 04/16/25 04/10/25 History acetaminophen 650 mg 1,300 mg PO Q8H PRN Pain 03/13/25 04/16/25 04/07/25 History tablet,extended release magnesium oxide 400 mg PO DAILY@0600 03/13/25 04/16/25 04/11/25 History melatonin 3 mg tablet 3 mg PO BEDTIME PRN Insomnia 04/08/25 04/16/25 Unknown History oxycodone 5 mg tablet 5 mg PO Q6H PRN Severe Pain (Scale 04/08/25 04/16/25 04/07/25 History Score 7-10) amoxicillin 500 mg capsule 500 mg PO TID@0600,1200,199904/12/25 04/16/25 04/11/25 12:00 History Physical Exam Vital Signs and Narrative: Vital Signs: Last Vital Signs Pulse 97 04/16/25 09:47 Resp 21 H 04/16/25 09:47 BP 136/85 04/16/25 09:47 Pulse Ox 95 04/16/25 09:47 O2 Del Method Nasal Cannula 04/16/25 09:47 O2 Flow Rate 2 04/16/25 09:47 FiO2 35 04/16/25 07:09 BMI result Body Mass Index 35.2 Appearing in no acute distress head is normocephalic atraumatic eyes pupils are PERRLA sclera is anicteric mouth throat mucous membranes are intact and moist neck is supple no lymphadenopathy, no JVD noted lung sounds are dim, exp wheezing heart regular rate rhythm, clear S1, S2 positive bowel sounds, abdomen is soft, nontender neuro patient is alert x3, no focal deficits Results Labs 04/16/25 05:27 04/16/25 05:28 Labs: Laboratory Results - last 24 hr 04/16/25 04/16/25 04/16/25 05:27 05:28 05:33 MCV 98.1 H MCH 30.5 MCHC 31.1 RDW 15.0 Plt Count 393 MPV 9.2 L Immature Gran % (Auto) 0.6 H Neut % (Auto) 68.8 Lymph % (Auto) 20.0 Hooker % (Auto) 8.6 Eos % (Auto) 1.7 Baso % (Auto) 0.3 Lymph # (Auto) 1.9 Hooker # (Auto) 0.8 Eos # (Auto) 0.2 Baso # (Auto) 0.0 Abs Immat Gran (auto) 0.06 H Absolute Neuts (auto) 6.4 Absolute Nucleated RBC 0.020 H Nucleated RBC % (auto) 0.2 VBG pH 7.37 VBG pCO2 64 VBG pO2 198 VBG HCO3 37 H VBG O2 Saturation 99.0 VBG Base Excess 10.3 Anion Gap 12 Estim Creat Clear Calc 76.7 Estimated GFR > 60 Random Glucose 141 H Calcium 10.1 D Magnesium 2.1 Total Bilirubin 0.2 AST 24 ALT 17 Alkaline Phosphatase 67 Troponin I High Sens 9.5 NT-Pro-B Natriuret Pep 97.4 Total Protein 6.6 Albumin 4.0 COVID-19 (SONAL) Negative COVID-19 Clin Com See Note Influenza Type A (DERREK) Negative Influenza Type B (DERREK) Negative Influenza A & B Note See Note 04/16/25 07:27 MCV MCH MCHC RDW Plt Count MPV Immature Gran % (Auto) Neut % (Auto) Lymph % (Auto) Hooker % (Auto) Eos % (Auto) Baso % (Auto) Lymph # (Auto) Hooker # (Auto) Eos # (Auto) Baso # (Auto) Abs Immat Gran (auto) Absolute Neuts (auto) Absolute Nucleated RBC Nucleated RBC % (auto) VBG pH 7.40 VBG pCO2 61 VBG pO2 81 VBG HCO3 38 H VBG O2 Saturation 97.0 VBG Base Excess 11.5 Anion Gap Estim Creat Clear Calc Estimated GFR Random Glucose Calcium Magnesium Total Bilirubin AST ALT Alkaline Phosphatase Troponin I High Sens NT-Pro-B Natriuret Pep Total Protein Albumin COVID-19 (SONAL) COVID-19 Clin Com Influenza Type A (DERREK) Influenza Type B (DERREK) Influenza A & B Note Assessment and Plan (1) COPD with acute exacerbation: Status: Acute Plan 60-year-old woman admitted with acute on chronic respiratory failure, placed on BiPAP in the ER Tooth pain recent dx of tooth infection broken tooth continue amoxicillin needs o/p dental visit Acute on chronic hypoxic respiratory failure secondary to COPD exacerbation Patient unable to put her cpap mask on due to pain from broken and infected tooth Placed on BiPAP in the ER Incentive spirometer hold off on steroids for now Xopenox COVID, RSV and flu negative Continue baseline oxygen to keep oxygen saturation greater than 89% Hypertension continue prazosin, verapamil, valsartan GERD PPI Depression/anxiety continue home medications History of trigeminal and occipital neuralgia Continue Tegretol, gabapentin, baclofen and duloxetine History of CVA Continue aspirin and statin Obstructive sleep apnea suppossed to be on cpap but unable to put mask on due to pain Obesity class II. BMI 35.2 Discussed importance of weight management as this may be contributing to worsening of other comorbidities DVT prophylaxis with Lovenox Full code Quality Stroke Does the patient have a stroke diagnosis?: No VTE Prior VTE?: No VTE Risk Level:: Medical - moderate - high VTE Device Contraindication: Treatment Not Indicated VTE Drug Contraindication: N/A - Med Ordered
[2025-04-16] MEDS: Calcium + Vitamin D 250 MG TABLET PO (13:33)
[2025-04-16] MEDS: Aspirin Enteric Coated 81 MG TABLET.DR PO ×2 (13:37→21:49)
[2025-04-16] MEDS: VerapamiL HCL SR 240 MG TABLET.ER PO (13:41)
[2025-04-16] MEDS: 0.9 % Sodium Chloride Flush 3 ML SYRINGE IVFLUSH ×2 (14:36→21:51)
--- NOTE | 2025-04-17 | ECG_ITS ---
Test Reason : CHECK QT Blood Pressure : */* mmHG Vent. Rate : 80 BPM Atrial Rate : 80 BPM P-R Int : 126 ms QRS Dur : 88 ms QT Int : 352 ms P-R-T Axes : 53 61 43 degrees QTcB Int : 405 ms Normal sinus rhythm Normal ECG When compared with ECG of 16-Apr-2025 05:08, Premature ventricular complexes are no longer Present Referred By: Sherita Martin Electronically Signed By: Eladio Nelson
[2025-04-17 04:19] VITALS: PULSE 78; RESP 22; O2SAT 94
[2025-04-17 05:00] VITALS: BP 124/56; PULSE 76; RESP 18; TEMP 36.1; O2SAT 91
[2025-04-17 07:47] VITALS: BP 104/67; PULSE 77; RESP 16; TEMP 36.1; O2SAT 92
[2025-04-17] MEDS: 0.9 % Sodium Chloride Flush 3 ML SYRINGE IVFLUSH (08:22)
[2025-04-17] MEDS: oxyCODONE HCl Immed Release 5 MG TABLET PO (08:28)
[2025-04-17] MEDS: Albuterol/Iprat 2.5/0.5MG 3 ML AMPUL.NEB INHALE (09:36)
--- NOTE | 2025-04-17 09:36 | PC.RT ---
Pt request scheduled tx early. No PRNs ordered.
[2025-04-17 09:37] VITALS: PULSE 77; RESP 16; O2SAT 95
--- NOTE | 2025-04-17 09:58 | P.DS_ITS ---
DS: Providers Provider Date of Service: 04/17/25 Date of admission: 04/16/25 08:13 Date of discharge: 04/17/25 Primary care physician: Rhett Cortez MD DS: Diagnosis Discharge Diagnosis (1) COPD with acute exacerbation: Status: Acute (2) Diastolic heart failure: Status: Acute (3) Peripheral neuropathy: Status: Acute (4) Chronic hypercapnic respiratory failure: Status: Acute (5) Chronic lung disease: Status: Acute (6) Acute on chronic respiratory failure with hypoxia and hypercapnia: Status: Acute (7) Tooth pain: Status: Acute DS: Summary Hospital Course Hospital Course: 60-year-old woman admitted with acute on chronic respiratory failure, placed on BiPAP in the ER Tooth pain recent dx of tooth infection broken tooth continue amoxicillin needs o/p dental visit take pain meds dilaudid and oxycodone along with tylenol and ibuoprofen as needed. Acute on chronic hypoxic respiratory failure secondary to COPD exacerbation resolved CXR ~ developing PNA. take azithromycin for 5 days along with amoxicillin. Pt uses 1 L at night time, 2 L at rest during the day and 3 L with exertion. at her baseline O2 now. resume all home inh and meds for COPD. resp panel -ve. no fever or leucocytosis. Hypertension continue prazosin, verapamil, valsartan GERD PPI Depression/anxiety continue home medications History of trigeminal and occipital neuralgia Continue Tegretol, gabapentin, baclofen and duloxetine History of CVA Continue aspirin and statin Obstructive sleep apnea CPAP as directed Obesity class II. BMI 35.2 Discussed importance of weight management as this may be contributing to worsening of other comorbidities Time Attestation Discharge Coordination Time (in mins): 40 mins Quality: Safe Use of Opioids Does Pt have an Active Cancer Diagnosis on the Problem List?: No Quality: Stroke Does the patient have a stroke diagnosis?: No Physical Exam Exam: Exam: A&Ox3 abd soft non tender resp: on 3 L nc baseline, no wheezing, heart RRR no SVETA infected tooth noticed Vital Signs: Vital Signs: Last Vital Signs Temp 96.9 F 04/17/25 07:47 Pulse 77 04/17/25 09:37 Resp 16 04/17/25 09:37 BP 104/67 04/17/25 07:47 Pulse Ox 92 04/17/25 07:47 O2 Del Method Nasal Cannula 04/17/25 07:47 O2 Flow Rate 2 04/17/25 07:47 FiO2 35 04/16/25 07:09 BMI result Body Mass Index 43.2 DS: Data Data Completed and Pending Completed studies during hospitalization [Text1]: Procedures Assistance with Respiratory Ventilation, Less than 24 Consecutive Hours, Continuous Positive Airway Pressure (03/13/25) Introduction of Vasopressor into Peripheral Vein, Percutaneous Approach (12/01/24) Discharge Plan Discharge Anticipated Discharge Date/Time: 04/17/25 09:52 Patient Disposition: Home, Self-Care Referrals: Rhett Cortez MD [Primary Care Provider, Internal Medicine] - 1 Week Discharge Medications: New azithromycin 500 mg Tablet 500 mg PO Q24H 4 Days Qty: 4 0RF Continued ipratropium-albuterol 0.5 mg-3 mg(2.5 mg base)/3 mL solution for nebulization 3 ml inhalation Q4H PRN (Reason: for dyspnea) Qty: 180 11RF baclofen 20 mg tablet 20 mg PO TID@0600,1200,1999 aripiprazole [Abilify] 5 mg tablet 5 mg PO DAILY@0600 oxcarbazepine 300 mg tablet 300 mg PO BID@06,1999 acetaminophen 650 mg Tablet Extended Release 1,300 mg PO Q8H PRN (Reason: Pain) magnesium oxide 400 mg magnesium Tablet 400 mg PO DAILY@0600 oxycodone 5 mg tablet 5 mg PO Q6H PRN (Reason: Severe Pain (Scale Score 7-10)) melatonin 3 mg Tablet 3 mg PO BEDTIME PRN (Reason: Insomnia) atorvastatin 80 mg tablet 80 mg PO DAILY@1999 yjltogtilt-norlnhrndmbdt-srnx 50-325-40 mg tablet 1 tab PO DAILY MRX1 PRN (Reason: Migraine Headache) hyoscyamine sulfate 0.125 mg tablet 0.25 mg PO Q6H PRN (Reason: Abdominal Discomfort) gabapentin 300 mg capsule 1,200 mg PO TID@0600,1200,1999 duloxetine 60 mg capsule,delayed release(DR/EC) 60 mg PO BID@0600,1999 (DME) nebulizer and compressor Device See Rx Instructions .Route Qty: 1 0RF Rx Instructions: As directed albuterol sulfate 90 mcg/actuation HFA aerosol inhaler 2 puff inhalation Q4H PRN (Reason: Shortness Of Breath Or Wheezing) aspirin 81 mg tablet,delayed release (DR/EC) 81 mg PO DAILY@1999 polyethylene glycol 3350 [Miralax] 17 gram/dose Powder 17 g PO DAILY PRN (Reason: Constipation) lorazepam 0.5 mg tablet 0.5 mg PO BEDTIME@1999 Casimiro Aerosphere 160-9-4.8 mcg/actuation HFA aerosol inhaler 2 inh inhalation BID@0600,1800 lorazepam 0.5 mg tablet 0.5 mg PO DAILY PRN (Reason: Anxiety) verapamil 120 mg tablet 120 mg PO BID@0600,1999 valsartan 40 mg tablet 40 mg PO DAILY@0600 Protocol: Hold for SBP< HOLD for SBP < : 90 roflumilast [Daliresp] 500 mcg tablet 500 mcg PO DAILY@0600 prednisone 5 mg tablet 5 mg PO Q48H omeprazole 20 mg capsule,delayed release(DR/EC) 20 mg PO DAILY@0600 amoxicillin 500 mg capsule 500 mg PO TID@0600,1200,1999 hydromorphone [Dilaudid] 2 mg tablet 2 mg PO Q6H Qty: 16 0RF Rx Instructions: Partial Fill upon patient request. calcium carbonate-vitamin D3 600 mg-5 mcg (200 unit) tablet 1 tab PO DAILY@1999 prazosin 2 mg capsule 2 mg PO DAILY@1999 (DME) Oxygen Home Use Kit See Rx Instructions .Route Rx Instructions: As directed Discharge Orders: Discharge Order (Routine); Ordered 04/17/25 Ordered By: Sherita Martin Activity on Discharge: As tolerated Stand Alone Forms: Patient Portal Discharge page Print Language: Faroese Care Plan Goals: You were admitted with acute on chronic hypoxic resp failure due to non comp liance with CPAP in the setting of tooth pain and inability to tolerate mask over face. Please complete Amoxicillin course as directed by your dentist. Take pain meds that were prescribed to you by dentist preferabbly 30 mins before using CPAP at night time. Health Concerns: as above Plan of Treatment: as above Assessment: as above
--- NOTE | 2025-04-17 10:43 | W.MHC.F2F ---
Service Date Service Date: 04/17/25 Encounter Date of encounter: 04/17/25 Reasons for Services Signs and symptoms assessed: Chronic resp failure, on home O2 PNA on azithromycin Tooth infection on amoxicillin Reason for senior living: medication treatment Reason for physical therapy: energy conservation Homebound: Leaving the home is medically contraindicated at this time without the asist of a device and/or another person due th the listed conditions above and below. Reason homebound: shortness of breath with minimal effort, shortness of breath at rest and weakness related to hospital stay Certification: Based on the above findings, I certify that this patient is confined to the home and needs intermittent senior living care, physical therapy and/or speech therapy, or continues to need occupational therapy. The patient is under my care, and I have initiated the establishment of the plan of care. The patient will be followed by a physician who will periodically review the plan of care. Time Spent With Patient Time: Total time managing care of this patient today __37__ minutes.
[2025-04-17 11:19] VITALS: BP 133/57; PULSE 91; RESP 16; TEMP 36.1; O2SAT 91
--- NOTE | 2025-04-17 11:20 | MHC.CM.PN ---
ARIELLA DELIVERED. CM MET WITH PT/SPOUSE AT BEDSIDE. PT AMBULATES WITH WALKER. PT USES HOME 02 VIA [email or web address], HAS NEBULIZER MACHINE AND IS ACTIVE WITH [facility] FOR SN/P.T. + HCP ON FILE. PCP DR. BRITO DP: PT HAS BEEN MEDICALLY CLEARED FOR DC HOME WITH RESUMPTION OF [facility]. [facility] UPDATED VIA [employer]. [facility] WILL TRANSPORT HOME.
== END 2025-04-17 11:34 | disposition home or self-care (01) ==
LOC: HO.ED 07:24 → HO.EDOVER 08:20 → HO.S3 19:18
PROVIDERS: Admitting Provider Hospitalist; Emergency Provider Emergency Medicine; PCP Internal Medicine; Visit Provider Hospitalist
DX: J44.1 Chronic obstructive pulmonary disease with (acute) exacerbation (principal); J96.21 Acute and chronic respiratory failure with hypoxia; J96.22 Acute and chronic respiratory failure with hypercapnia; I50.32 Chronic diastolic (congestive) heart failure; I11.0 Hypertensive heart disease with heart failure; G62.9 Polyneuropathy, unspecified; K08.89 Other specified disorders of teeth and supporting structures; I35.0 Nonrheumatic aortic (valve) stenosis; K21.9 Gastro-esophageal reflux disease without esophagitis; F41.8 Other specified anxiety disorders; G47.33 Obstructive sleep apnea (adult) (pediatric); E66.812 Obesity, class 2; Z68.35 Body mass index [BMI] 35.0-35.9, adult; Z86.73 Personal history of transient ischemic attack (TIA), and cerebral infarction without residual deficits; Z91.199 Patient's noncompliance with other medical treatment and regimen due to unspecified reason; Z79.899 Other long term (current) drug therapy; Z03.818 Encounter for observation for suspected exposure to other biological agents ruled out
CPT/HCPCS: 36415; 71045; 80053; 82803; 83735; 83880; 84484; 85025; 87502; 87635; 93005; 94640; 96365; 96372; 96375; 99221; 99285; J1171; J1650; J2919; J3475

== ENCOUNTER → 2025-04-16 05:04 | Outpatient (BNV) | payer BC, SELFPAY | PROVIDERS: Admitting Provider Hospitalist; Emergency Provider Emergency Medicine; PCP Internal Medicine; Visit Provider Internal Medicine Cardiovascular Disease | DX: Z13.6 Encounter for screening for cardiovascular disorders (principal) | CPT/HCPCS: 93010 ==

== ENCOUNTER → 2025-04-16 05:22 | Outpatient (BNV) | payer BC, SELFPAY | PROVIDERS: Emergency Provider Emergency Medicine; PCP Internal Medicine; Visit Provider Radiology Vascular & Interventional Radiology | DX: R91.8 Other nonspecific abnormal finding of lung field (principal) | CPT/HCPCS: 71045 ==

== ENCOUNTER 2025-04-16 08:13 | Outpatient (BNV) | payer BC, SELFPAY | END 2025-04-17 09:09 | PROVIDERS: Admitting Provider Hospitalist; Emergency Provider Emergency Medicine; PCP Internal Medicine; Visit Provider Internal Medicine Cardiovascular Disease | DX: Z13.6 Encounter for screening for cardiovascular disorders (principal) | CPT/HCPCS: 93010 ==

== ENCOUNTER → 2025-04-16 08:13 | Outpatient (BNV) | payer BC, SELFPAY | PROVIDERS: Admitting Provider Hospitalist; Emergency Provider Emergency Medicine; PCP Internal Medicine; Visit Provider Nurse Practitioner Acute Care | DX: J44.1 Chronic obstructive pulmonary disease with (acute) exacerbation (principal); I50.32 Chronic diastolic (congestive) heart failure; G62.9 Polyneuropathy, unspecified; J96.12 Chronic respiratory failure with hypercapnia; J98.4 Other disorders of lung; J96.21 Acute and chronic respiratory failure with hypoxia; J96.22 Acute and chronic respiratory failure with hypercapnia; K08.89 Other specified disorders of teeth and supporting structures | CPT/HCPCS: 99239; G0180 ==

== ENCOUNTER 2025-04-20 18:32 | Inpatient (IN) | payer BC, SELFPAY ==
--- OUTSIDE RECORDS SUMMARY | 2025-04-18 12:00 | XMS_ITS | Encounter Summary ---
Author Organization [facility] Address [address] [place] [phone] Phone Care Team Providers Care Milled Lumber Grader Name Role Phone Jn Cardoza MD Unavailable Denys Henriquez MD Unavailable Antione Segura PA-C Primary Care Provider [phone] Rhett Cortez MD Unavailable Reason for Visit * Auth/Cert (Routine) Specialty Diagnoses / Procedures Referred By Dary smith Referred To Contact Referral ID Status Reason Start Date Expiration Date Visits Re quested Visits Authorized [id number] 1 1 Encounter Details Date Type Department Care Team (Late st Contact Info) Description 04/18/2025 12:00 PM EST Home Care Visit [facility] [address] [place] [address] Shakira Hand, HUA [address] [place], [place] [phone] [email or web address] SN OASIS RESUMPTION OF CARE (VERONIKA) Social [...] Date Recorded Lack of Transportation (Medical) No 04/18/2025 Lack of Transportation (Non-Medical) No 04/18/2025 Patient Unable or Declines to Respond No 04/18/2025 Child or Family Care Answer Date Record ed Do you have problems with on e of the following making it difficult for you to work, study, or receive health care? No 01/31/2025 Education Answer Date Recorded Are you interested in help w ith more adult education (for example, completing high school, GED, job training, learning the [place] language, technical skills, or developing parenting skills)? [...] Sign Reading Time Taken Comments Blood Pressure 110/58 04/18/2025 12:24 PM EST Pulse 99 04/18/2025 12:24 PM EST Temperature 36.5 C (97.7 F) 04/18/2025 12:24 PM EST Respiratory Rate - - Oxygen Saturation 91% 04/18/2025 12:24 PM EST Inhaled Oxygen Concentration - - Weight - - Height - - Body Mass Index - - documented in this encounter Plan of Treatment Upcoming Encounters Date Type Department Care Team (Late st Contact Info) Description 04/06/2025 Procedure Pass [facility], Ct Scan - [address] [address] 04/23/2025 2:00 AM EST [facility] [address] [place] [address] Shakira Hand RN [address] [place] [address] [email or web address] 04/24/2025 9:40 AM EST Office Visit [facility] [address] [place] [address] Antione Segura PA-C [address] [place] [address] 04/25/2025 2:00 AM EST [facility]ment [facility] [address] [place] [phone] Shakira Hand RN [address] [place] [address] 05/01/2025 8:00 AM EST Appointment [facility], Ct Scan - [facility] [address] [place] [address] Antione Segura PA-C [address] [place] [address] [email or web address] 06/25/2025 9:30 AM EST Telemedicine [facility] Neurology [address] [place] [address] Jn Cardoza MD 22 [facility], 2nd [place] [address] documented as of this encounter Visit Diagnoses [...] condition resulting in adequate oxygenation and ventilation Performed - I/E medication management: administration, purpose, dosages, preparation, setup, scheduling, side effects, food/drug interactions, and potential complications as indicated Description: Update patient's copy of medication list as needed. Problem:HH - Medication Management Goal:HH - Safe medication management, avoid unnecessary harm related to medication errors and/or interactions Performed - Complete medication review every visit and medication reconciliation as indicated. Pharmacy information: Problem:HH - Medication Management Goal:HH - Safe medication management, avoid unnecessary harm related to medication errors and/or interactions Performed - Prefill or setup medications as follows: Description: SN TO ASSIST PATIENT IN SETTING UP PILL ORGANIZER WEEKLY Problem: - Medication Management Performed - Assess medication compliance Problem: - Medication Management Performed - Focus of care, teaching completed and plan for next visit Problem: - Focus of Care and Teaching Goal: - Communication and collaboration to achieve patient goals Performed Primary Clinical Focus this Visit & Instruction Provided: PT WENT TO ED LAST NIGHT AGAIN- DUE SOB. PT CURRENTLY STILL WHEEZING AND O2. 2L. ONE 2 ABX ONE FOR HER TOOTH AND ONE FOR PNA. PT DROWSY SLEEPY. DID HER DUONEBS TWICE THIS MORNING AND RELIEF DOES N OT LAST VERY LONG. REPORTS SHE PERFORMED HER INHALER-LAST NEBULIZER 2 HRS AGO. 230PM. HER LAWRENCE WILL BE REMAINING HOME TO CARE FOR PT FOR A COUPLE DAYS. ADVISED TO WRITE DOWN TIMES DUONEBS AND PAIN MEDICATIONS ARE TAKEN PT IS ALERT BUT FALLING ASLEEP DURING ASSESSMENT. THE VISIT WENT ON HER SOB APPEARED TO IMPROVE A LITTLE. HER MEDICATIONS WERE ORGANIZED IN PILL ORGANIZER. HAS ABOUT 3 MORE DAYS OF ABX. O2 SAT REMAINING 90-91% DROP QUICKLY WITH EXERTION. PT NEEDS REMINDERS TO INCREASE TO 3L WITH ACTIVITY. SNV FOR TOMMOROW TO FOLLOW UP AND REASSESS RESP, MED MANAGMENT, CVP, O2 MANAGMENT, INFECTION MANAGEMENT Instruction Provided to: patient and caregiver Response to Instruction/Teachin g: Is partially able to teach back topics as evidenced by NEEDS RIENFORCEMENT. Plan for Next Visit Specific Focus & Education Needed: REASSESS RESP, MED MANAGMENT, CVP, O2 MANAGMENT, INFECTION MANAGEMENT New Orders: Updated Discharge Plan: HH [...] the event of an emergency related situation. Performed HH - Emergency planning assessment: the emergency plan, supplies needed, emergency contact numbers and an evacuation plan were reviewed Description: Patient and Caregiver is/are knowledgeable of emergency plans. Problem:HH - Emergency Planning - Knowledge of Goal:HH - Knowledge of options for managing care in the event of an emergency related situation. Performed HH - Assess vital signs, pulse oximetry, pain, and as indicated, orthostatic vital signs Description: use agency-specific parameters Problem:HH - Standard of Care Goal:HH - Achieve care management for a safe to home/community discharge from homecare Performed HH - Assess skin integrity Problem:HH - Standard of Care Goal:HH - Achieve care management for a safe to home/community discharge from homecare Performed documented in this encounter Care Teams Milled Lumber Grader Relationship Specialty Start Date End Date Antione Segura PA-C [address] [place] [address] PCP - General Physician Rn Orthopedic 10/12/24 Jn Cardoza MD [address] [place] [address], [address] [place] [address] [email or web address] Neurology 02/03/24 Denys Henriquez MD [address] [place] [address] [place] [address] Pulmonary Disease 02/03/24 Rhett Cortez MD [address] [place] [address] [email or web address] Insurance Assigned Provider 01/20/25 documented as of this encounter Additional Source Comments The information contained in this document represents components of the legal health record. It is not the complete legal health record.[facility]
--- OUTSIDE RECORDS SUMMARY | 2025-04-19 10:30 | XMS_ITS | Encounter Summary ---
Author Organization [facility] Address [address] [place] [address] Phone Care Team Providers Care Gas Maker Name Role Phone Jn Cardoza MD Unavailable Denys Henriquez MD Unavailable Antione Segura PA-C Primary Care Provider Rhett Cortez MD Unavailable Reason for Visit * Auth/Cert (Routine) Specialty Diagnoses / Procedures Referred By Dary smith Referred To Contact Referral ID Status Reason Start Date Expiration Date Visits Re quested Visits Authorized [id number] 1 1 Encounter Details Date Type Department Care Team (Late st Contact Info) Description 04/19/2025 10:30 AM EST Home Care Visit [facility] [address] [place] [address] Shakira Hand, HUA [address] [place], [place] [phone] [email or web address] SN HOME VISIT Social History Tobacco Use [...] high school, GED, job training, learning the Malian language, technical skills, or developing parenting skills)? [...] Sign Reading Time Taken Comments Blood Pressure 115/70 04/19/2025 10:40 AM EST Pulse 67 04/19/2025 10:40 AM EST Temperature 36.4 C (97.5 F) 04/19/2025 10:40 AM EST Respiratory Rate 20 04/19/2025 10:40 AM EST Oxygen Saturation 95% 04/19/2025 10:40 AM EST Inhaled Oxygen Concentration - - Weight - - Height - - Body Mass Index - - documented in this encounter Plan of Treatment Upcoming Encounters Date Type Department Care Team (Late st Contact Info) Description 04/06/2025 Procedure Pass [facility], Ct Scan - [address] [address] 04/23/2025 2:00 AM EST [facility] [address] [place] [address] Shakira Hand, HUA [address] [place] [address] 04/24/2025 9:40 AM EST Office Visit [facility] [place] [facility] [address] [place] [address] Antione Segura PA-C 40 [place] [address] 04/25/2025 2:00 AM EST App[facility]ment [facility] [address] [place] [address] Shakira Hand RN [address] [place] [address] 05/01/2025 8:00 AM EST Appointment [facility], Ct Scan - [facility] [address] [place] [address] Antione Segura PA-C 40 [place] [address] [email or web address] 06/25/2025 9:30 AM EST Telemedicine [facility] Neurology 22 [place] [address] Jn Cardoza MD 22 [facility], 2nd [place] [address] documented as of this encounter Visit Diagnoses Not on filedocumented in this encounter Additional Health Concerns Assessment Noted Time PHQ-9 Depression Total Score: 23 025 3:04 PM EDT PHQ-2 Depression Total Score: 5 03/21/20 25 3:04 PM EDT documented as of this encounter Home Health Visit - Care Plan Visit Details Visit Type -SN HOME VISIT Discipline -Senior Care Problems Problem [...] Care 12/27/2024 Active 1 goal linked to scheduled/documen [...] 1 goal linked to scheduled/documen subhash intervention 6 goal interventions scheduled/document ed in this visit HH - Pain Disciplines: All Active Home Health Disciplines 12/27/2024 Active 1 goal linked to scheduled/documen subhash intervention 1 goal intervention scheduled/document ed in this visit Goals [...] cardiac disease, treatments, and s/s of complications Performed HH - Respiratory specialized equipment: Description: CPAP: Problem:HH - Respiratory Status - Impaired Goal:HH - Demonstrate/verbalize causes, impacts, and management of respiratory condition resulting in adequate oxygenation and ventilation Performed HH - I/E use of respiratory care equipment: Description: CPAP/BiPAP, nebulizer and oxygen Problem:HH - Respiratory Status - Impaired Goal:HH - Demonstrate/verbalize causes, impacts, and management of respiratory condition resulting in adequate oxygenation and ventilation Performed HH - I/E medication management: administration, purpose, dosages, preparation, setup, scheduling, side effects, food/drug interactions, and potential complications as indicated Description: Update patient's copy of medication list as needed. Problem:HH - Medication Management Goal:HH - Safe medication management, avoid unnecessary harm related to medication errors and/or interactions Performed HH - Complete medication review every visit and medication reconciliation as indicated. Pharmacy information: Problem:HH - Medication Management Goal:HH - Safe medication management, avoid unnecessary harm related to medication errors and/or interactions Performed HH - Prefill or setup medications as follows: Description: SN TO ASSIST PATIENT IN SETTING UP PILL ORGANIZER WEEKLY Problem:HH - Medication Management Performed HH - Assess medication compliance Problem:HH - Medication Management Performed HH - Focus of care, teaching completed and plan for next visit Problem:HH - Focus of Care and Teaching Goal:HH - Communication and collaboration to achieve patient goals Performed Primary Clinical Focus this Visit & Instruction Provided: pt more alert today, vs wnl. ls dim. was able to use her cpap last night. used her nebulizer and inhaler this morning. o2 remaining above 90. 91/92%on 2L oxygen. she continues or oral abx for pna and for her tooth infection. riradhaoced Eric to continue to write down the times pt is taking her breathing treatment adn pain meds. Pt was able to call her pharmacy and request a med refill. noted 1+pitting edema new from yesterday going up to her thi ghs. pt using her compressionstocking s. riumeshfroced to elevate legs. her pcp was contacted and notified. pt reports she used to be on lasix in the past. inquired with pcp. Instruction Provided to: patient Response to Instruction/Teachin g: Is partially able to teach back topics as evidenced by needs rienforcement. Plan for Next Visit Specific Focus & Education Needed: infection management, cvp, o2 managaement, medicaation management, edema New Orders: Updated Discharge Plan: HH - [...] an emergency related situation. Performed HH - I/E infection Description: adhere to infection precautions, infection prevention measures and s/s of infection Problem:HH - Infection - Actual or Risk of Goal:HH - Patient will have no new infection; any new infection that occurs will be identified and treated promptly; existing infection will resolve without complication Performed HH - Assess infection risk and s/s Problem:HH - Infection - Actual or Risk of Goal:HH - Patient will have no new infection; any new infection that occurs will be identified and treated promptly; existing infection will resolve without complication Performed HH - Assess vital signs, pulse oximetry, pain, and as indicated, orthostatic vital signs Description: use agency-specific parameters Problem: - Standard of Care Goal: - Achieve care management for a safe to home/community discharge from homecare Performed HH - Assess skin integrity Problem: - Standard of Care Goal:HH - Achieve care management for a safe to home/community discharge from homecare Performed HH - I/E safety measures, non-fall related Description: electrical safety, environmental safety, proper storage and disposal of medications, safe ADLs/IADLs and use and maintenance of smoke detectors Problem: - Standard of Care Goal:HH - Achieve care management for a safe to home/community discharge from homecare Performed HH - I/E management of skin integrity and non-wound impairment Description: s/s of pressure injury, pressure reduction, and injury prevention measures Problem: - Standard of Care Goal:HH - Achieve care management for a safe to home/community discharge from homecare Performed HH - I/E discharge plan Problem: - Standard of Care Goal:HH - Achieve care management for a safe to home/community discharge from homecare Performed HH - Diet: Description: regular diet Problem:HH - Standard of Care Goal:HH - Achieve care management for a safe to home/community discharge from homecare Performed HH - I/E pain management Problem:HH - Pain Goal:HH - Frequency of pain interfering with patient's activity or movement will improve with activity or movement by discharge. Performed documented in this encounter Care Teams Gas Maker Relationship Specialty Start Date End Date Antione Segura PA-C [address] [place] [address] [email or web address] PCP - General Physician Wood Repatcher 10/12/24 Jn Cardoza MD [address] [place] [address], 2[address] [place] [address] [email or web address] Neurology 02/03/24 Denys Henriquez MD [address] [place] [address] [place] [address] Pulmonary Disease 02/03/24 Rhett Cortez MD [address] [place] [address] [email or web address] Insurance Assigned Provider 01/20/25 documented as of this encounter Additional Source Comments The information contained in this document represents components of the legal health record. It is not the complete legal health record.[facility]
--- NOTE | ~2025-04-20 | XR_ITS ---
CLINICAL HISTORY: cp 1 view chest x-ray Comparison: CR - XR CHEST 1V - 04/16/25 05:22 EST Findings: No consolidation or effusion. Normal size heart. No acute fracture. IMPRESSION: 1. No acute findings. This document has been electronically signed by: Kip Arce MD on 04/20/2025 20:01:37
--- OUTSIDE RECORDS SUMMARY | 2025-04-20 | XMS_ITS | Encounter Summary ---
Author Organization [facility] Address [address] [place] [phone] Phone Care Team Providers Care Business Insurance Agent Name Role Phone nJ Cardoza MD Unavailable Denys Henriquez MD Unavailable Antione Segura PA-C Primary Care Provider Rhett Cortez MD Unavailable Reason for Visit * Auth/Cert (Routine) Specialty Diagnoses / Procedures Referred By Dary smith Referred To Contact Referral ID Status Reason Start Date Expiration Date Visits Re quested Visits Authorized [id number] 1 1 Encounter Details Date Type Department Care Team (Late st Contact Info) Description 04/20/2025 Home Care Visit [facility] [address] [place] [address] Yane Lanza, PT [address] [place] [address] [email or web address] PT EVALUATION Social History Tobacco Use Types Packs/Day Years [...] st Contact Info) Description 04/06/2025 Procedure Pass [facility], [address] [address] 04/23/2025 2:00 AM EST [facility] [address] [place] [address] Shakira Hand RN [address] [place] [address] 04/24/2025 9:40 AM EST Office Visit [facility] [address] [place] [phone] Antione Segura PA-C [address] [place] [address] 04/25/2025 2:00 AM EST [facility]ment [facility] [address] [place] [address] Shakira Hand RN [address] [place] [address] 05/01/2025 8:00 AM EST Appointment [facility], [address] [address] Antione Segura PA-C [address] [place] [address] 06/25/2025 9:30 AM EST Telemedicine [facility] Neurology [address] [place] [address] Jn Cardoza MD 22 [facility], 2nd [place] [address] [email or web address] documented as of this encounter Visit Diagnoses Not on filedocumented in this encounter Additional Health Concerns Assessment Noted Time PHQ-9 Depression Total Score: 23 025 3:04 PM EDT PHQ-2 Depression Total Score: 5 03/21/20 25 3:04 PM EDT documented as of this encounter Home Health Visit - Care Plan Visit Details Visit Type -PT EVALUATION Discipline -Physical Therapy Problems Problem Description Start Date Status Goals Interve ntions HH - Medication Management Disciplines: All Active Home Health Disciplines, Assisted 12/27/2024 Active 1 goal linked to scheduled/document [...] indicated. Pharmacy information: Problem: - Medication Management Goal:HH - Safe medication management, avoid unnecessary harm related to medication errors and/or interactions Scheduled HH - Focus of care, teaching [...] Scheduled documented in this encounter Care Teams Business Insurance Agent Relationship Specialty Start Date End Date Antione Segura PA-C [address] [place] [phone] PCP - General Physician Geometrician 10/12/24 Jn Cardoza MD [address] [place] [address], 2[address] [place] [address] Neurology 02/03/24 Denys Henriquez MD [address] [place] [address] [place] [address] Pulmonary Disease 02/03/24 Rhett Cortez MD [address] [place] [address] [email or web address] Insurance Assigned Provider 01/20/25 documented as of this encounter Additional Source Comments The information contained in this document represents components of the legal health record. It is not the complete legal health record.[facility]
--- OUTSIDE RECORDS SUMMARY | 2025-04-20 13:30 | XMS_ITS | Encounter Summary ---
Author Organization [facility] Address [address] [place] [address] Phone Care Team Providers Care Overcaster Name Role Phone Jn Cardoza MD Unavailable Denys Henriquez MD Unavailable [phone] Antione Segura PA-C Primary Care Provider Rhett Cortez MD Unavailable Reason for Visit * Auth/Cert (Routine) Specialty Diagnoses / Procedures Referred By Dary smith Referred To Contact Referral ID Status Reason Start Date Expiration Date Visits Re quested Visits Authorized [id number] 1 1 Encounter Details Date Type Department Care Team (Late st Contact Info) Description 04/20/2025 1:30 PM EST Home Care Visit [facility] [address] [place] [address] Shakira Hand, HUA [address] [place], [place] [phone] [email or web address] SN HOME VISIT Social History Tobacco Use [...] high school, GED, job training, learning the Guyanese language, technical skills, or developing parenting skills)? [...] Sign Reading Time Taken Comments Blood Pressure 120/62 04/20/2025 11:55 AM EST Pulse 77 04/20/2025 11:55 AM EST Temperature 36.6 C (97.8 F) 04/20/2025 11:55 AM EST Respiratory Rate 20 04/20/2025 11:55 AM EST Oxygen Saturation 95% 04/20/2025 11:55 AM EST Inhaled Oxygen Concentration - - Weight - - Height - - Body Mass Index - - documented in this encounter Plan of Treatment Upcoming Encounters Date Type Department Care Team (Late st Contact Info) Description 04/06/2025 Procedure Pass [facility], Ct Scan - [address] [address] 04/23/2025 2:00 AM EST [facility]ment [facility] [address] [place] [address] Shakira Hand, HUA [address] [place] [address] 04/24/2025 9:40 AM EST Office Visit [facility] [address] [place] [address] Antione Segura PA-C [address] [place] [address] 04/25/2025 2:00 AM EST [facility]ment [facility] [address] [place] [phone] Shakira Hand RN [address] [place] [address] 05/01/2025 8:00 AM EST Appointment [facility], Ct Scan - [facility] [address] [place] [address] Antione Segura PA-C [address] [place] [address] 06/25/2025 9:30 AM EST Telemedicine [facility] Neurology [address] [place] [address] Jn Cardoza MD [address] [facility], 2nd [place] [address] documented as of this encounter Visit Diagnoses Not on filedocumented in this encounter Additional Health Concerns Assessment Noted Time PHQ-9 Depression Total Score: 23 025 3:04 PM EDT PHQ-2 Depression Total Score: 5 03/21/20 25 3:04 PM EDT documented as of this encounter Home Health Visit - Care Plan Visit Details Visit Type -SN HOME VISIT Discipline -Alf Problems Problem Description Start Date Status Goals Interve ntions HH - Respiratory Status - Impaired Disciplines: All Active Home Health Disciplines 12/27/2024 Active 1 goal linked to scheduled/document ed intervention 1 goal intervention scheduled/document ed in this visit HH - Medication Management Disciplines: All Active Home Health Disciplines, Alf 12/27/2024 Active 1 goal linked to scheduled/document [...] ORGANIZER WEEKLY Problem:HH - Medication Management Performed - Assess medication compliance Problem:HH - Medication Management Performed HH - Focus of care, teaching completed and plan for next visit Problem: - Focus of Care and Teaching Goal:HH - Communication and collaboration to achieve patient goals Performed Primary Clinical Focus this Visit & Instruction Provided: t.c by her pcp. new script sent to [facility] for lasix x7days for edema to ble. pt aware and her will picker tender after snv. 1+pitting edema to ble persists. pt wearing her compression stockings. ad vised to avoid high sodium content foods. especially canned soups and to look for low sodium ooptions. o2 sat 95% on 2L o2. ls dim. vs wnl. pt was also advised to check her bp while on lasix as instructed by pcp. pt continues taking her inhalers and nedu lizer treatments Instruction Provided to: patient Response to Instruction/Aisha donovan: Is partially able to teach back topics as evidenced by needs rienforcement. Plan for Next Visit Specific Focus & Education Needed: infection management, edema, copd, m edications management New Orders: Updated Discharge Plan: HH - I/E management of care in an urgent or emergency (ER) situation: When to call your Home Care Team/[facility], ER plans, supplies, evacuation, when to contact [...] Performed documented in this encounter Care Teams Overcaster Relationship Specialty Start Date End Date Antione Segura PA-C [address] [place] [id number] [email or web address] PCP - General Physician Rig Supervisor 10/12/24 Jn Cardoza MD [address] [place] [address], [address] [place] [address] [email or web address] Neurology 02/03/24 Denys Henriquez MD [address] [place] [address] [place] [address] Pulmonary Disease 02/03/24 Rhett Cortez MD [address] [place] [address] [email or web address] Insurance Assigned Provider 01/20/25 documented as of this encounter Additional Source Comments The information contained in this document represents components of the legal health record. It is not the complete legal health record.[facility]
--- NOTE | 2025-04-20 18:45 | ECG_ITS ---
Test Reason : SOB Blood Pressure : */* mmHG Vent. Rate : 86 BPM Atrial Rate : 86 BPM P-R Int : 128 ms QRS Dur : 94 ms QT Int : 364 ms P-R-T Axes : 37 53 32 degrees QTcB Int : 435 ms Normal sinus rhythm Normal ECG When compared with ECG of 17-Apr-2025 09:09, No significant change was found Referred By: Kellee Sethi Electronically Signed By: Eladio Nelson
[2025-04-20 18:49] VITALS: BP 111/41; PULSE 82; RESP 20; TEMP 36.6; O2SAT 94
--- NOTE | 2025-04-20 18:49 | ED.SOB ---
HPI - SOB/Dyspnea General Chief Complaint: Dyspnea Stated Complaint: SOB Time Seen by Provider: 04/20/25 18:39 History of Present Illness HPI Narrative: Patient is a 60-year-old female presents today with having shortness of breath. History of COPD. History of acute on chronic respiratory failure. History of congestive heart failure. Chronic lung disease baseline on 2 L of oxygen at home. CPAP at night. Was just discharged from the hospital few days ago. Presented back with having increasing shortness of breath. Positive coughing positive generalized malaise. Related Data Home Medications ?Medication ?Instructions ?Recorded ?Confirmed atorvastatin 80 mg tablet 80 mg PO DAILY@199903/04/23 04/16/25 uedqqzfesc-tjmmvkmfrraim-vcmihmah 1 tab PO DAILY MRX1 PRN Migraine 03/04/23 04/16/25 50 mg-325 mg-40 mg tablet Headache duloxetine 60 mg capsule,delayed 60 mg PO BID@0600,199903/04/23 04/16/25 release gabapentin 300 mg capsule 1,200 mg PO TID@0600,1200,199903/04/23 04/16/25 hyoscyamine sulfate 0.125 mg tablet 0.25 mg PO Q6H PRN Abdominal 03/04/23 04/16/25 Discomfort Oxygen Home Use 04/16/23 02/26/25 prazosin 2 mg capsule 2 mg PO DAILY@199904/16/23 04/16/25 albuterol sulfate 90 mcg/actuation 2 puff inhalation Q4H PRN 01/31/24 04/16/25 aerosol inhaler Shortness Of Breath Or Wheezing aspirin 81 mg tablet,delayed 81 mg PO DAILY@199905/22/24 04/16/25 release calcium 600 mg (as 1 tab PO DAILY@199906/20/24 04/16/25 carbonate)-vitamin D3 5 mcg (200 unit) tablet baclofen 20 mg tablet 20 mg PO TID@0600,1200,199910/29/24 04/16/25 aripiprazole 5 mg tablet (Abilify) 5 mg PO DAILY@00 12/01/24 04/16/25 oxcarbazepine 300 mg tablet 300 mg PO BID@0600,199912/21/24 04/16/25 lorazepam 0.5 mg tablet 0.5 mg PO BEDTIME@1999 MODERATE 01/04/25 04/16/25 Anxiety polyethylene glycol 3350 17 17 g PO DAILY PRN Constipation 01/04/25 04/16/25 gram/dose oral powder (Miralax) budesonide 160 mcg-glycopyr 9 2 inh inhalation BID@0600,1800 02/05/25 04/16/25 mcg-formot 4.8 mcg/actuation HFA inhaler (Breztri Aerosphere) lorazepam 0.5 mg tablet 0.5 mg PO DAILY PRN Anxiety 02/05/25 04/16/25 roflumilast 500 mcg tablet 500 mcg PO DAILY@0600 02/05/25 04/16/25 (Daliresp) valsartan 40 mg tablet 40 mg PO DAILY@0600 02/05/25 04/16/25 verapamil 120 mg tablet 120 mg PO BID@0600,199902/05/25 04/16/25 omeprazole 20 mg capsule,delayed 20 mg PO DAILY@0603/01/25 04/16/25 release prednisone 5 mg tablet 5 mg PO Q48H 03/01/25 04/16/25 acetaminophen 650 mg 1,300 mg PO Q8H PRN Pain 03/13/25 04/16/25 tablet,extended release magnesium oxide 400 mg PO DAILY@0600 03/13/25 04/16/25 melatonin 3 mg tablet 3 mg PO BEDTIME PRN Insomnia 04/08/25 04/16/25 oxycodone 5 mg tablet 5 mg PO Q6H PRN Severe Pain (Scale 04/08/25 04/16/25 Score 7-10) amoxicillin 500 mg capsule 500 mg PO TID@0600,1199,199904/12/25 04/16/25 Previous Rx's ?Medication ?Instructions ?Recorded nebulizer and compressor #1 ea 12/16/23 ipratropium 0.5 mg-albuterol 3 mg 3 ml inhalation Q4H PRN for 03/02/24 (2.5 mg base)/3 mL nebulization dyspnea #180 mL soln hydromorphone 2 mg tablet 2 mg PO Q6H #16 tabs 04/13/25 (Dilaudid) azithromycin 500 mg tablet 500 mg PO Q24H 4 days #4 tabs 04/17/25 Allergies Allergy/AdvReac Type Severity Reaction Status Date / Time Iodinated Contrast Media (IV Allergy Intermediate HIVES Verified 04/20/25 18:53 CONTRAST) latex (LATEX) Allergy Unknown RASH Verified 04/20/25 18:53 adhesive tape Allergy Rash Verified 04/20/25 18:53 morphine (MORPHINE) AdvReac Unknown VOMITING Verified 04/20/25 18:53 Review of Systems Review of Systems: Positive shortness of breath patient unable to give detailed PMFSH Past Medical History Attestation statement: The following information was validated with the patient. Medical History Chronic lung disease Morbid obesity Pulmonary nodules Diastolic heart failure Chronic lung disease Hypoxia Panic disorder Hypertension Chronic hypercapnic respiratory failure Aortic stenosis Asthma Hypogammaglobulinemia Smoker JUANITO (obstructive sleep apnea) Elevated troponin COPD (chronic obstructive pulmonary disease) Trigeminal neuralgia Mixed hyperlipidemia Peripheral neuropathy Tobacco use disorder Mood disorder Surgical History History of esophagogastroduodenoscopy (EGD) History of colonoscopy History of lumbar discectomy History of tubal ligation History of excision of mass History of shoulder surgery Social History Social History Household Members: Spouse Household Members Other:: dog Housing: Condominium Do you presently have visiting nurse or other home services: Yes ([facility]) Alcohol intake: current Alcohol intake frequency: holidays/special occasions only Alcohol type: hard liquor Comment: pt refusing bed alarm Patient Tobacco Use Status: Former Tobacco user Tobacco use type: Cigarette Cigarette Packs Per Day: 4 Cigarettes Per Day: 80.0 Years Smoked: 40 Smoked in Last 30 Days: No e-Cigarette/Vaping Use: Never Used Second Hand Smoke Exposure: No Use of substances other than those prescribed or required for medical reasons: No Substance Use Type: Marijuana Advance Directives: Yes Advance Directives on File: Yes Advance Directives Date on File: 03/09/23 Do you have a plan to hurt others: No Plan Patient : No service: No Physical Exam Exam: Exam: Appearance: Alert. Oriented X3. No acute distress. Eyes: Pupils equal, round and reactive to light. ENT: Pharynx normal. Neck: Normal inspection. Neck supple. No lymph nodes noted. No crepitus CVS: Normal heart rate and rhythm. Pulses normal. Normal S1 and S2 Respiratory: Diminished breath sounds bilaterally. Increased work of breathing. Mild wheezing noted. Abdomen: Soft and nontender. No rigidity. No distention. good BS x4 Skin: Skin warm and dry. Normal skin color. Normal skin turgor. Extremities: No lower extremity edema. Neurovascular intact to all extremities. No Lacerations. No Rash Neuro: Oriented X 3. No motor deficit. No sensory deficit. Moving all extermities. No slurred speech Vital Signs: Vital Signs: Last Vital Signs Temp 97.9 F 04/20/25 18:51 Pulse 81 04/20/25 18:54 Resp 18 04/20/25 18:54 BP 117/53 L 04/20/25 18:51 Pulse Ox 94 04/20/25 18:51 O2 Del Method Nasal Cannula 04/20/25 18:51 O2 Flow Rate 3 04/20/25 18:49 Oxygen Flow Rate 3 04/20/25 18:51 BMI result Body Mass Index 43.5 Medications Administered Discontinued Medications Generic Name Dose Route Start Last Admin Trade Name Jasonq PRN Reason Stop Dose Admin Albuterol Sulfate 7.5 mg/ 10 mg 04/20/25 18:46 04/20/25 18:50 Albuterol Sulfate 2.5 mg INHALE 04/20/25 18:47 10 mg ONCE ONE Administration Magnesium Sulfate 2 gm in 50 mls @ 150 mls/hr 04/20/25 18:46 04/20/25 20:08 Magnesium Sulfate/H2o IV 04/20/25 19:05 Infused ONCE ONE Infusion Methylprednisolone Sodium Succinate 125 mg 04/20/25 18:45 04/20/25 19:37 Methylprednisolone Sod Succ 125 Mg/2 Ml Vial IVPUSH 04/20/25 18:46 125 mg ONCE ONE Administration Medical Decision Making Medical Decision Making [facility] Narrative: Patient is 60 years old presented today with having increasing shortness of breath. Multiple admission to the hospital in the past. History of COPD and CHF and pneumonia. Currently already on antibiotics. Just got discharged from the hospital. Presented back with having increasing shortness of breath. Patient from group home. My interpretation patient's chest x-ray showed no new focal infiltrate. Patient's ABG by my interpretation showed no CO2 retention. Given neb treatments steroids. Symptoms still persist. Will require admission for further evaluation. Baseline on 3 L of oxygen at home on CPAP at night. Differential Diagnosis Differential Diagnoses: The differential diagnosis associated with the presentation includes COPD CHF pneumonia Admission/Observation Consideration of admission/observation: Escalation of care including admission/observation considered Consult Healthcare Provider Management of the patient was discussed with: Hospitalist Lab Data MDM Lab Attestation statement: I reviewed the patient's lab results. 04/20/25 19:22 04/20/25 19:22 Labs: Lab Results 04/20/25 Range/Units 19:22 WBC 10.3 (4.8-10.8) X10*3/uL RBC 3.54 L (4.20-5.50) X10*6/uL Hgb 10.6 L (12.0-16.0) g/dl Hct 34.6 L (37.0-47.0) % MCV 97.7 (80.0-98.0) fL MCH 29.9 (27.0-33.0) pg MCHC 30.6 L (31.0-35.0) g/dl RDW 15.4 (11.0-16.0) % Plt Count 423 H (160-400) X10*3/uL MPV 9.2 L (9.4-12.3) fL Immature Gran % (Auto) 1.6 H (0.0-0.4) % Neut % (Auto) 75.6 H (45-73) % Lymph % (Auto) 12.8 L (20-40) % Knott % (Auto) 8.0 (2-11) % Eos % (Auto) 1.4 (0-4) % Baso % (Auto) 0.6 (0-2) % Lymph # (Auto) 1.3 (1.2-4.9) X10*3/uL Knott # (Auto) 0.8 (0.1-1.2) X10*3/uL Eos # (Auto) 0.1 (0.0-0.4) X10*3/uL Baso # (Auto) 0.1 (0.0-0.2) X10*3/uL Abs Immat Gran (auto) 0.16 H (0.00-0.03) X10*3/uL Absolute Neuts (auto) 7.8 (2.0-8.3) x10*3/uL Absolute Nucleated RBC 0.060 H (0.0-0.012) X10*3/uL Nucleated RBC % (auto) 0.6 H (0.0-0.2) /100WBC Sodium 143 (135-145) mmol/L Potassium 3.9 (3.3-5.1) mmol/L Chloride 103 (96-108) mmol/L Carbon Dioxide 32 H (22-29) mmol/L Anion Gap 12 (12-20) BUN 8 L (9-16) mg/dL Creatinine 0.63 (0.5-1.4) mg/dL Estim Creat Clear Calc 102.9 Estimated GFR > 60 Random Glucose 114 (60-115) mg/dL Lactic Acid 1.5 (0.5-2.0) mmol/L Calcium 9.5 (8.4-10.2) mg/dL Troponin I High Sens 7.1 (<3.5-17.0) ng/L NT-Pro-B Natriuret Pep 123.4 (<300) pg/mL ABG Data Attestation ABG: I personally reviewed and interpreted this ABG as follows: (Patient's VBG showed no signs of retention) Independent Interpretation I performed an independent interpretation of an: EKG (Sinus heart rate is 90 WV QRS QTC within normal limits is no acute ST segment elevation) and Plain X-Ray (No pneumonia no pneumothorax) Radiology Impression Discussion of test interpretation with radiology: I have reviewed the radiologist's reading. External Record Review External record reviewed: Inpatient record Chronic Conditions Patient?s care impacted by: Hypertension COPD Social Determinants Patient?s care significantly limited by Social Determinants of Health including: Problems related to primary support group and Unemployment Critical Care Time Critical Care Time Critical Care Time: Yes (40) Total Critical Care Time: 40 Attestation: I have personally provided 40 minutes of critical care time exclusive of time spent on separately billable procedures. ?Time includes review of lab data, radiology results, discussion with consultants, and monitoring for potential decompensation. ?Interventions were performed as documented above Discharge Plan Discharge Clinical Impression: COPD (chronic obstructive pulmonary disease) Patient Disposition: Admitted As Inpatient Print Language: [place] Islander
[2025-04-20] MEDS: Albuterol Sulfate 7.5 MG, Albuterol Sulfate (0.083%) 2.5 MG 10 MG INHALE (18:50)
[2025-04-20 18:51] VITALS: BP 117/53; BP 160/76; PULSE 80; PULSE 84; RESP 24; TEMP 36.6; O2SAT 94; BMI 43.5
[2025-04-20 18:54] VITALS: PULSE 81; RESP 18; O2SAT 94
[2025-04-20] MEDS: Magnesium Sulfate/H2O 2 GM/50 ML PIGGYBACK IV (19:37)
[2025-04-20 19:43] LABS: MANUAL DIFF FLAG NO
[2025-04-20 19:44] LABS: Hematocrit 34.6 % (37.0-47.0); Hemoglobin 10.6 g/dl (12.0-16.0); Imm Gran Abs Auto 0.16 X10*3/uL (0.00-0.03); Imm Gran Pct Auto 1.6 % (0.0-0.4); Lymphocytes Absolute Auto 1.3 X10*3/uL (1.2-4.9); Mean Corpuscular HGB Conc 30.6 g/dl (31.0-35.0); Mean Corpuscular Hemoglobin 29.9 pg (27.0-33.0); Mean Corpuscular Volume 97.7 fL (80.0-98.0); NRBC Abs Auto 0.060 X10*3/uL (0.0-0.012); NRBC Pct Auto 0.6 /100WBC (0.0-0.2); Platelet Count 423 X10*3/uL (160-400); Red Blood Count 3.54 X10*6/uL (4.20-5.50); White Blood Count 10.3 X10*3/uL (4.8-10.8)
--- OUTSIDE RECORDS SUMMARY | 2025-04-20 19:53 | XMS_ITS | Encounter Summary ---
Author Organization [facility] Address [address] [place] [address] [place] [address] Phone Care Team Providers Care Traffic Or System Dispatcher Name Role Phone Lang Germain MD Unavailable Jennifer Duke BIOFUELS PRODUCTION ASSOCIATE Primary Care Provider Sirisha Huertas PROPERTY SITE MANAGER Primary Care Provider [phone] Jn Cardoza MD Unavailable Denys Henriquez MD Unavailable Liyah Patterson MD Unavailable Liyah Patterson MD Primary Care Provider Antione Segura PA-C Primary Care Provider [phone] Rhett Cortez MD Unavailable Encounter Details Date Type Department Care Team (Late st Contact Info) Description 11/11/2021 Transcribe Orders [facility] [address] [place] [address] Jennifer Duke, BIOFUELS PRODUCTION ASSOCIATE [address] [facility] [address] [place] [address] [email or web address] Social History Tobacco Use Types Packs/Day Years [...] st Contact Info) Description 04/06/2025 Procedure Pass [address] [address] 04/23/2025 2:00 AM EST [facility] [address] [place] [phone] Shakira Hand RN [address] [place] [address] 04/24/2025 9:40 AM EST Office Visit [facility] [address] [place] [address] Antione Segura PA-C 40 [place] [address] 04/25/2025 2:00 AM EST [facility] [address] [place] [phone] Shakira Hand RN [address] [place] [address] 05/01/2025 8:00 AM EST Appointment [facility], [address] [address] Antione Segura PA-C [address] [place] [address] [email or web address] 06/25/2025 9:30 AM EST Telemedicine [facility] Neurology [address] [place] [address] Jn Cardoza MD 22 [facility], 2nd [place] [address] documented as of this encounter Visit Diagnoses Not on filedocumented in this encounter Additional Health Concerns Assessment Noted Time PHQ-2 Depression Total Score: 0 05/25/20 9:02 AM EST documented as of this encounter Care Teams Traffic Or System Dispatcher Relationship Specialty Start Date End Date Jennifer Duke NP [address] [place] [address] [email or web address] PCP - General Family Medicine 01/31/20 06/22/23 Sirisha Huertas FNP [address] [place] [address] [email or web address] PCP - General Nurse Practitioner 06/23/23 08/03/24 Liyah Patterson MD [address] [place] [address] [email or web address] PCP - General Family Medicine 08/04/24 10/11/24 Antione Segura PA-C [address] [place] [address] PCP - General Physician Engineering Assistant 10/12/24 Lang Germain MD [address] [place] [address] Insurance Assigned Provider 09/18/23 02/19/24 Jn Cardoza MD 22 [facility], 2nd [place] [address] [email or web address] Neurology 02/03/24 Denys Henriquez MD [address] [place] [address] [place] [address] Pulmonary Disease 02/03/24 Liyah Patterson MD [address] [facility] [address] [place] [address] [email or web address] Insurance Assigned Provider 02/19/24 01/20/25 Rhett Cortez MD [address] [place] [address] [email or web address] Insurance Assigned Provider 01/20/25 documented as of this encounter Additional Source Comments The information contained in this document represents components of the legal health record. It is not the complete legal health record.[facility]
--- OUTSIDE RECORDS SUMMARY | 2025-04-20 19:53 | XMS_ITS | Encounter Summary ---
Author Organization [facility] Address [address] [place] [address] Phone Care Team Providers Care Nuclear Licensing Engineer Name Role Phone Lang Germain MD Unavailable Jennifer Duke DIRECTOR OF RADIOLOGY Primary Care Provider Sirisha Huertas SEARCH ENGINEER Primary Care Provider [phone] Jn Cardoza MD Unavailable Denys Henriquez MD Unavailable Liyah Patterson MD Unavailable Liyah Patterson MD Primary Care Provider [phone] Antione Segura PA-C Primary Care Provider [phone] Rhett Cortez MD Unavailable Encounter Details Date Type Department Care Team (Late st Contact Info) Description 06/30/2022 Procedure Pass [facility], Ct Scan - [address] [address] Social History Tobacco Use Types Packs/Day Years [...] st Contact Info) Description 04/06/2025 Procedure Pass [address] [address] 04/23/2025 2:00 AM EST [facility] [address] [place] [address] Shakira Hand RN [address] [place] [address] 04/24/2025 9:40 AM EST Office Visit [facility] Internal Medicine [address] [place] [address] Antione Segura PA-C 40 [place] [address] 04/25/2025 2:00 AM EST [facility] [address] [place] [phone] Shakira Hand RN [address] [place] [address] 05/01/2025 8:00 AM EST Appointment [address] [address] Antione Segura PA-C [address] [place] [address] 06/25/2025 9:30 AM EST Telemedicine [facility] Neurology [address] [place] [address] Jn Cardoza MD 22 [facility], 2nd [place] [address] [email or web address] documented as of this encounter Visit Diagnoses Not on filedocumented in this encounter Additional Health Concerns Assessment Noted Time PHQ-9 Depression Total Score: 18 023 8:53 AM EST PHQ-2 Depression Total Score: 6 06/26/19 23 8:53 AM EST documented as of this encounter Care Teams Nuclear Licensing Engineer Relationship Specialty Start Date End Date Jennifer Duke DIRECTOR OF RADIOLOGY [address] [place] [address] [email or web address] PCP - General Family Medicine 01/31/20 06/22/23 Sirisha Huertas FNP [address] [place] [address] [email or web address] PCP - General Nurse Practitioner 06/23/23 08/03/24 Liyah Patterson MD [address] [place] [address] [email or web address] PCP - General Family Medicine 08/04/24 10/11/24 Antione Segura PA-C [address] [place] [phone] [email or web address] PCP - General Physician Granite Cutter Apprentice 10/12/24 Lang Germain MD [address] [place] [phone] [email or web address] Insurance Assigned Provider 09/18/23 02/19/24 Jn Cardoza MD 22 [facility], 2nd [place] [address] [email or web address] Neurology 02/03/24 Denys Henriquez MD [address] [place] [address] [place] [address] Pulmonary Disease 02/03/24 Liyah Patterson MD [address] [facility] [address] [place] [address] [email or web address] Insurance Assigned Provider 02/19/24 01/20/25 Rhett Cortez MD 40 [place] [address] Insurance Assigned Provider 01/20/25 documented as of this encounter Additional Source Comments The information contained in this document represents components of the legal health record. It is not the complete legal health record.[facility]
--- OUTSIDE RECORDS SUMMARY | 2025-04-20 19:53 | XMS_ITS | Encounter Summary ---
Author Organization [facility] Address [address] [place] [phone] Phone Care Team Providers Care Roping Tender Name Role Phone Jn Cardoza MD Unavailable Denys Henriquez MD Unavailable Antione Segura PA-C Primary Care Provider Rhett Cortez MD Unavailable Encounter Details Date Type Department Care Team (Late st Contact Info) Description 04/12/2025 Orders Only [facility] Internal Medicine [address] [place] [address] Provider, MD Omar [address] [place] [id number] Social History Tobacco Use Types Packs/Day [...] st Contact Info) Description 04/06/2025 Procedure Pass [facility], [address] [address] 04/23/2025 2:00 AM EST Appointment [facility] [address] [place] [phone] Shakira Hand RN [address] [place] [address] [email or web address] 04/24/2025 9:40 AM EST Office Visit [facility] Internal Medicine [address] [place] [address] Antione Segura PA-C [address] [place] [address] [email or web address] 04/25/2025 2:00 AM EST [facility]ment [facility] [address] [place] [phone] Shakira Hand RN [address] [place] [address] 05/01/2025 8:00 AM EST Appointment [address] [address] Antione Segura PA-C [address] [place] [address] [email or web address] 06/25/2025 9:30 AM EST Telemedicine [facility] Neurology [address] [place] [address] Jn Cardoza MD [address] [address] documented as of this encounter Procedures Procedure [...] documented as of this encounter Care Teams Roping Tender Relationship Specialty Start Date End Date Antione Segura PA-C [address] [place] [address] [email or web address] PCP - General Physician Property And Casualty Insurance Agent 10/12/24 Jn Cardoza MD [address] [address] Neurology 02/03/24 Denys Henriquez MD [address] [place] [address] [place] [address] Pulmonary Disease 02/03/24 Rhett Cortez MD [address] [place] [address] Insurance Assigned Provider 01/20/25 documented as of this encounter Additional Source Comments The information contained in this document represents components of the legal health record. It is not the complete legal health record.[facility]
--- OUTSIDE RECORDS SUMMARY | 2025-04-20 19:53 | XMS_ITS | Encounter Summary ---
Author Organization [facility] Address [address] [address] Phone Care Team Providers Care Water Control Station Engineer Name Role Phone Jn Cardoza MD Unavailable Denys Henriquez MD Unavailable Liyah Patterson MD Unavailable Antione Segura-C Primary Care Provider Rhett Cortez MD Unavailable Encounter Details Date Type Department Care Team (Late st Contact Info) Description 01/09/2025 Home Health Resumption of Care Planning [facility] [address] [place] [phone] Koki Simons, HUA [address] [place] [address] [email or web address] Social History Tobacco Use Types Packs/Day Years [...] st Contact Info) Description 04/06/2025 Procedure Pass [facility], [address] [address] 04/23/2025 2:00 AM EST [facility] [address] [place] [address] Shakira Hand, HUA [address] [place] [address] 04/24/2025 9:40 AM EST Office Visit [facility] Internal Medicine [address] [place] [address] Antione Segura PA-C 40 [place] [address] 04/25/2025 2:00 AM EST [facility]ment [facility] [address] [place] [address] Shakira Hand, HUA [address] [place] [address] 05/01/2025 8:00 AM EST Appointment [address] [address] Antione Segura PA-C [address] [place] [address] 06/25/2025 9:30 AM EST Telemedicine [facility] [place] [address] Jn Cardoza MD [address] [address] [email or web address] documented as of this encounter Visit Diagnoses Not on filedocumented in this encounter Additional Health Concerns Assessment Noted Time PHQ-9 Depression Total Score: 025 9:08 PM EDT PHQ-2 Depression Total Score: 12/28/19 25 9:08 PM EDT documented as of this encounter Care Teams Water Control Station Engineer Relationship Specialty Start Date End Date Antione Segura PA-C [address] [place] [address] PCP - General Physician Communications Engineer 10/12/24 Jn Cardoza MD [address] [address] Neurology 02/03/24 Denys Henriquez MD [address] [place] [address] [place] [address] Pulmonary Disease 02/03/24 Liyah Patterson MD 15 [facility] [address] [address] Insurance Assigned Provider 02/19/24 01/20/25 Rhett Cortez MD [address] [place] [address] Insurance Assigned Provider 01/20/25 documented as of this encounter Additional Source Comments The information contained in this document represents components of the legal health record. It is not the complete legal health record.[facility]
--- OUTSIDE RECORDS SUMMARY | 2025-04-20 19:53 | XMS_ITS | Clinical Summary ---
Author Organization [facility] Address [address] [id number] Care Team Providers Care Partner Marketing Intern Name Role Phone Antione Segura Primary Care Provider [phone] Allergies Active Allergy Reactions Criticality Noted Date [...] Type Department Care Team Description 01/29/2025 Telephone [facility] [address] [place] [phone] Steam And Power Superintendent: Federico Hill Telephone Intake, Staff PAC Order Request; Dr. Bautista 01/25/2025 Orders Only [facility] [address] [place] [address] Steam And Power Superintendent: Remy Santos MD 01/25/2025 Telephone [facility] Pulmonary Function Lab [address] [place] [address] Remy Bautista MD Whalen/med was not sent to pharmacy 01/24/2025 11:00 AM EDT Office Visit [facility] [address] [place] [address] Steam And Power Superintendent: Remy Santos MD Stage 2 moderate COPD [...] complete this topic Procedures * Due to [place] state law, this organization might not be sharing negative HIV tests. Procedure Name Priority Date/Time Associated Diagnosis Comments AMB EXTERNAL CT CHEST, OUTSI DE RESULT 11/30/2024 from Last 3 Months or Most Recently Relevant to Health Maintenance Results * Due to [place] state law, this organization might not be sharing negative HIV tests. * CT Chest, Outside Result (11/30/2024) Anatomical Region Laterality Modality Other 11/30/2024 us Onbase Scan Berndaette AMB EXTERNAL RESULT PROCEDURE S Final Result from Last 3 Months or Most Recently Relevant to Health Maintenance Insurance [facility] HMO/POS Care Teams Partner Marketing Intern Relationship Specialty Start Date End Date Antione Segura PA [address] [place] [phone] PCP - General Emergency Medicine 01/10/25
--- OUTSIDE RECORDS SUMMARY | 2025-04-20 19:53 | XMS_ITS | Encounter Summary ---
Author Organization [facility] Address [address] [address] Phone Care Team Providers Care Technical Aid Name Role Phone Jn Cardoza MD Unavailable Denys Henriquez MD Unavailable Liyah Patterson MD Unavailable Antione Segura-C Primary Care Provider Rhett Cortez MD Unavailable Encounter Details Date Type Department Care Team (Late st Contact Info) Description 12/06/2024 Home Health Resumption of Care Planning [facility] [address] [place] [phone] Diana Torres, RN [address] [place] [address] [email or web address] Social History Tobacco Use Types Packs/Day Years [...] st Contact Info) Description 04/06/2025 Procedure Pass [facility], [address] [address] 04/23/2025 2:00 AM EST [facility] [address] [place] [address] Shakira Hand RN [address] [place] [address] 04/24/2025 9:40 AM EST Office Visit [facility] Internal Medicine [address] [place] [address] Antione Segura PA-C [address] [place] [address] 04/25/2025 2:00 AM EST [facility]ment [facility] [address] [place] [address] Shakira Hand RN [address] [place] [address] 05/01/2025 8:00 AM EST Appointment [address] [address] Antione Segura PA-C [address] [place] [address] 06/25/2025 9:30 AM EST Telemedicine [facility] Neurology [address] [place] [address] Jn Cardoza MD [address] [address] [email or web address] documented as of this encounter Visit Diagnoses Not on filedocumented in this encounter Additional Health Concerns Assessment Noted Time PHQ-9 Depression Total Score: 21 025 12:31 PM EDT PHQ-2 Depression Total Score: 6 10/13/19 25 12:31 PM EDT documented as of this encounter Care Teams Technical Aid Relationship Specialty Start Date End Date Antione Segura PA-C [address] [place] [address] [email or web address] PCP - General Physician Cyanide Pot Tender 10/12/24 Jn Cardoza MD 22 [facility], [address] [place] [address] [email or web address] Neurology 02/03/24 Denys Henriquez MD [address] [place] [address] [place] [address] Pulmonary Disease 02/03/24 Liyah Patterson MD 15 [facility] [address] [address] [email or web address] Insurance Assigned Provider 02/19/24 01/20/25 Rhett Cortez MD [address] [place] [address] [email or web address] Insurance Assigned Provider 01/20/25 documented as of this encounter Additional Source Comments The information contained in this document represents components of the legal health record. It is not the complete legal health record.[facility]
--- OUTSIDE RECORDS SUMMARY | 2025-04-20 19:53 | XMS_ITS | Clinical Summary ---
Author Organization [facility] Address [address] [place] [phone] Phone Care Team Providers Care Sr. Manager Name Role Phone Jn Cardoza MD Unavailable Denys Henriquez MD Unavailable [phone] Antione Segura PA-C Primary Care Provider [phone] Rhett Cortez MD Unavailable Allergies Active Allergy [...] if sbp less than 120 024 Active prazosin (MINIPRESS) 2 MG capsule [...] day as needed for cough. 20 capsule 07/17/2 025 Active LORazepam (ATIVAN) 0.5 MG tabletIndications: Anxiety Take 1 tablet (0.5 mg total) by mouth 2 (two) times a day as needed for anxiety. Must last one month. 14 tablet Active budesonide-glycopy r-formoterol (BREZTRI AEROSPHERE) 160-9-4.8 mcg/actuation [...] (specific location in comments). 28 tablet Active DULoxetine (CYMBALTA) 60 MG capsuleIndications :Anxiety TAKE ONE CAPSULE BY MOUTH TWICE A DAY 180 capsule 3 Active furosemide (LASIX) 20 MG tablet Take 1 tablet (20 mg total) by mouth daily. 7 tablet Active DULoxetine (CYMBALTA) 60 MG capsuleIndications :Anxiety take one capsule by mouth twice a day 60 capsule 11 024 2024 Discontinued diphenhydrAMINE (BENADRYL) 50 MG capsule Take 1 capsule (50 mg total) by mouth as directed. Take 1 hour before your appointment where you will be receiving IV contrast dye for your imaging study 1 capsule 2024 Discontinued(N o longer taking) ID-clobetasol propionate (20-577) 0.05 % topical ointment Apply 1 Application topically 2 (two) times a day. 2024 Discontinued(N o longer taking) gabapentin (NEURONTIN) 300 MG capsuleIndications :Trigeminal neuralgia,Auriculo [...] A-fib and have her follow-up with the resolution manager Acute on chronic hypoxic respiratory failure Assessment & Plan (03/28/2025 4:20 PM EDT): Patient was recently admitted to [facility] from 03/13-03/19 for acute on chronic hypoic [...] L. She has to follow-up with her installer and to schedule another sleep study to be completed. Assessment & Plan (12/28/2024 6:54 PM EDT): Respiratory status improved on course of antibiotics and prednisone. Continue deep breathing and monitor for any worsened respiratory status. Monitor home spO2. Continue benzonatate prn. Continue O2 therapy as prescribed. Referral placed to [facility]monology. Trigeminal neuralgia 12/28/2024 Assessment & [...] completed at [facility] through her resolution manager -Her blood pressures have been not [...] Does have outpatient stress test scheduled with [facility] Cardiology. Discussed that results would indicate future management and whether that may include cardiac catheterization. I do not see record of this within her discharge summary from [facility] Assessment & Plan (12/22/2023 9:33 AM EDT): [...] should be seen and followed by a state epidemiologist which she does already have appointment scheduled [...] how this is not appropriate given prescribed Glover for pain and risk of USABILITY ENGINEER depression. She is aware of these risks and agrees to continuing medication as prescribed. She understands that she can contact the office should she be interested in discussion of medication regimen. Assessment & Plan (11/01/2023 10:20 AM EDT): PHQ9 Flowsheet Row Office Visit from 10/28/2023 in [facility] PHQ-9 Total Score 24 Results [...] study and speech evaluation when inpatient at [place]. Discussed referral to gastroenterology discussed potential of [...] does have an upcoming appointment with her installer next week. Of note she also saw another installer Remy Bautista out at [facility] pulmonary and has a follow-up with [...] a scheduled appointment on 12/18 with her installer. She is hoping to get this moved [...] exacerbation with acute hypoxemic respiratory failure. Current installer is Dr. Henriquez at [facility]. She is interested in establishing care with [facility] pulmonology some of her specialists are within the [facility] for better continuity of care. She understands that she should continue with Dr. Sevilla until she is able to establish care with [facility] Hypoxemia requiring supplemental oxygen 03/11/2023 10/12/2024 [...] 9:13 AM EST): She has tolerated decreased Glover quantity well over the last month and [...] 35 per month. We discussed concern for USABILITY ENGINEER depression and need to minimize use especially [...] 3 times daily and she was on Glover however during her last hospital stay this [...] Encounters Date Type Department Care Team Description 04/20/2025 1:30 PM EST Home Care Visit [facility] [address] [place] [address] Shakira Hand, HUA SN HOME VISIT 04/20/2025 Home Care Visit [facility] [address] [place] [address] Yane Lanza, PT PT EVALUATION 04/19/2025 10:30 AM EST Home Care Visit [facility] [address] [place] [address] Shakira Hand, HUA SN HOME VISIT 04/19/2025 Telephone [facility] Internal Medicine [address] [place] [address] Elida Lindquist RN Swelling 04/19/2025 Refill [facility] Internal Medicine [address] [place] [address] Sirisha Huertas FNP Medication Refill 04/18/2025 12:00 PM EST Home Care Visit [facility] [address] [place] [address] Shakira Hand, RN SN OASIS RESUMPTION OF CARE (VERONIKA) 04/18/2025 Home Care Visit [facility] [address] [place] [address] Viktoriya Taylor, RN TELEPHONE ENCOUNTER 04/16/2025 Orders Only [facility] Internal Medicine [address], [place] [phone] ProviderOmar MD 04/15/2025 Home Health Resumption of Care Planning [facility] [address], [place] [phone] Dennise Rodriguez, HUA 04/13/[address] [place], [place] [phone] Vilma Velázquez Care Coordination 04/12/2025 3:00 PM EDT Home Care Visit [facility] [address] [place] [phone] Thao Kennedy CASE COMMUNICATION 04/12/2025 Home Care Visit [facility] [address] [place] [phone] Shakira Hand, HUA SN OASIS TRANSFER 04/12/2025 Documentation [facility] Internal Medicine [address] [place] [address] Antione Segura PA-C 04/12/2025 Orders Only [facility] Internal Medicine [address], [place] [phone] Omar Cooley MD 04/11/2025 Refill [facility] Internal Medicine [address] [place] [address] Elida Lindquist, HUA TCM Visit 04/10/2025 Telephone [facility] Internal Medicine [address], [place] [phone] Antione Segura PA-C TCM Visit (Needs appt ) 04/10/2025 Telephone [facility] Internal Medicine [address], [place] [phone] Antione Segura PA-C Forms & Paperwork 04/09/2025 3:00 PM EDT Home Care Visit [facility] [address], [place] [phone] Thao Kennedy FELT CUTTER HOME VISIT 04/09/2025 Telephone [facility] [address] [place] [address] Janay Naidu Care Coordination 04/09/2025 Orders Only [facility] Internal Medicine [address] [place] [address] ProviderOmar MD 04/07/2025 Refill [facility] Internal Medicine [address] [place] [address] Antione Segura PA-C Medication Refill 04/06/2025 11:45 AM EDT - 04/06/2025 11:59 PM EDT Hospital Encounter [facility] [address] [place] [address] Antione Segura PA-C Discharge Disposition: Home or Self Care 04/06/2025 Orders Only [facility] Internal Medicine [address] [place] [address] Antione Segura PA-C Abnormal finding on imaging (Primary Dx); Allergic reaction to contrast material, subsequent encounter 04/05/2025 3:00 PM EDT Home Care Visit [facility] [address], [place] [phone] Thao Kennedy FELT CUTTER HOME VISIT 04/05/2025 2:00 AM EDT Home Care Visit [facility] [address], [place] [phone] Rich Mariscal LPN HOME VISIT 04/05/2025 Episode [facility] [address] [place] [address] Margy Rubalcava 04/04/2025 Episode Documentation Update [facility] [address] [place] [address] Margy Rubalcava 04/03/2025 Episode Documentation Update [facility] [address] [place] [phone] Margy Rubalcava 04/02/2025 2:00 PM EDT Home Care Visit [facility] [address] [place] [phone] Thao Kennedy FELT CUTTER HOME VISIT 04/02/2025 Episode Documentation Update [facility] [address] [place] [phone] Margy Rubalcava 03/30/2025 Episode Documentation Update [facility] [address] [place] [phone] Margy Rubalcava 03/29/2025 3:00 PM EDT Home Care Visit [facility] [address] [place] [address] Thao Kennedy FELT CUTTER HOME VISIT 03/29/2025 11:30 AM EDT Home Care Visit [facility] [address] [place] [phone] Shakira Hand RN SN HOME VISIT 03/29/[address] [address] Janay Naidu Care Coordination 03/29/2025 Episode Documentation Update [facility] [address] [place] [address] Margy Rubalcava 03/28/2025 2:32 PM EDT - 03/28/2025 11:59 PM EDT Hospital Encounter [facility], [facility] Scan - [facility] [address] [place] [address] Antione Segura PA-C Discharge Disposition: Home or Self Care 03/28/2025 9:40 AM EDT Office Visit [facility] Internal Medicine [address] [place] [address] Antione Segura PA-C Acute right-sided low back pain without sciatica (Primary Dx); Depression, unspecified depression type; Dizziness and giddiness; Acute on chronic hypoxic respiratory failure 03/28/2025 Telephone [facility] [address] [place] [address] Janay Naidu Care Coordination 03/28/2025 Telephone [facility] Internal Medicine [address] [place] [address] Antione Segura PA-C Results 03/28/2025 Procedure Pass [facility], Ct Scan - [address] [address] 03/28/2025 Episode Documentation [facility] [address] [place] [address] Margy Rubalcava 03/27/2025 Home Care Visit [facility] [address] [place] [address] Thao Kennedy FELT CUTTER HOME VISIT 03/21/2025 1:30 PM EDT [facility] [address] [place] [phone] Shakira Hand, RN SN OASIS RESUMPTION OF CARE (VERONIKA) 03/21/2025 Documentation [facility] Internal Medicine [address] [place] [address] Antione Segura PA-C 03/20/2025 Home Health Resumption of Care Planning [facility] [address] [place] [address] Koki Simons RN 03/16/2025 4:30 AM EDT [facility] [address] [place] [phone] Shakira Hand RN SN OASIS TRANSFER 03/15/2025 Refill [facility] Internal Medicine [address] [place] [address] Antione Segura PA-C Medication Refill 03/13/2025 Orders Only [facility] Internal Medicine [address] [place] [address] ProviderOmar MD 03/08/2025 1:00 AM EDT Home Care Visit [facility] [address] [place] [phone] Rich Mariscal LPN HOME VISIT 03/08/2025 Refill [facility] Internal [facility] [address] [place] [address] Antione Segura PA-C Medication Refill 03/08/2025 Refill [facility] Internal [facility] [address] [place] [address] Pete Hicks PA-C Medication Refill 03/08/2025 Refill [facility] Internal [facility] [address] [place] [address] Antione Segura PA-C Medication Refill 03/06/2025 Episode Documentation Update [facility] [address] [place] [phone] Bratic, Stanislavka 03/05/2025 Episode Documentation Update [facility] [address] [place] [phone] Bratic, Stanislavka 03/04/2025 Episode Documentation Update [facility] [address] [place] [phone] Bratic, Stanislavka 03/02/2025 Episode Documentation Update [facility] [address] [place] [phone] Bratic, Stanislavka 03/02/2025 Telephone [facility] Internal [facility] [address] [place] [address] Antione Segura PA-C [facility] referral request 03/01/2025 11:00 AM EDT Home Care Visit [facility] [address] [place] [phone] Rich Mariscal LPN HOME VISIT 03/01/2025 Refill [facility] Neurology [address] [place] [address] Vania Matamoros [place] 02/27/2025 Refill [facility] Internal Medicine [address] [place] [address] Antione Segura PA-C Medication Refill 02/26/2025 Episode Documentation Update [facility] [address] [place] [phone] Margy Rubalcava 02/23/2025 11:30 AM EDT Home Care Visit [facility] [address] [place] [address] Shakira Hand RN SN OASIS RECERTIFICATION/FUP 02/23/2025 Plan of Care Documentation [facility] [address] [place] [phone] 02/21/2025 Episode Documentation Update [facility] [address] [place] [phone] Margy Rubalcava 02/20/2025 Orders Only [facility] Internal Medicine [address] [place] [address] Omar Cooley MD 02/19/2025 10:30 AM EDT Home Care Visit [facility] [address] [place] [phone] Shakira Hand RN SN PRN HOME VISIT 02/19/2025 9:00 AM EDT Home Care Visit [facility] [address] [place] [address] Krysta Charles HOME VISIT 02/16/2025 Home Care Visit [facility] [address] [place] [phone] Laquita Mchugh, PT TELEPHONE ENCOUNTER 02/16/2025 Telephone [facility] Internal Medicine [address], [place] [phone] Antione Segura PA-C Referral ([facility] Pulmonology) 02/16/2025 Home Care Visit [facility] [address] [place] [phone] Krysta Charles FELT CUTTER HOME VISIT 02/15/2025 9:00 AM EDT Office Visit [facility] Internal Medicine [address], [place] [phone] Antione Segura PA-C Pulmonary emphysema, unspecified emphysema type (Primary Dx) 02/15/2025 Home Care Visit [facility] [address] [place] [address] Laquita Mchugh, PT TELEPHONE ENCOUNTER 02/14/2025 1:30 PM EDT Home Care Visit [facility] [address] [place] [phone] Shakira Hand RN SN HOME VISIT 02/14/2025 Home Care Visit [facility] [address], [place] [phone] Laquita Mchugh, PT TELEPHONE ENCOUNTER 02/14/2025 Home Care Visit [facility] [address] [place] [phone] Laquita Mchugh, PT TELEPHONE ENCOUNTER 02/14/2025 Orders Only [facility] Internal Medicine [address], [place] [phone] Omar Cooley MD 02/14/2025 Documentation [facility] Internal Medicine [address] [place], [place] [phone] Antione Segura PA-C 02/14/2025 Home Care Visit [facility] [address] [facility] [place] [phone] Krysta Charles HOME VISIT 02/13/2025 Telephone [facility] [address] [place], [place] [phone] Antione Segura PA-C Appointment (Tcm+discharged 02/09/25 ) 02/12/2025 12:30 PM EDT Home Care Visit [facility] [address] [place] [address] Shakira Hand, RN SN OASIS RESUMPTION OF CARE (VERONIKA) 02/11/2025 Home Care Visit [facility] [address] [place] [address] Maritza Calix, RN CASE COMMUNICATION 02/09/2025 Home Health Resumption of Care Planning [facility] [address] [place] [address] Koki Simons, HUA 02/08/2025 1:00 AM EDT Home Care Visit [facility] [address] [place] [address] Shakira Hand, HUA SN OASIS TRANSFER 02/05/2025 Home Care Visit [facility] [address] [place] [address] Krysta Charles CASE COMMUNICATION 02/01/2025 3:30 PM EDT Home Care Visit [facility] [address] [place] [address] Yane Lanza, PT PT HOME VISIT 02/01/2025 4:00 AM EDT Home Care Visit [facility] [address] [place] [address] Krysta Charles FELT CUTTER HOME VISIT 01/31/2025 1:30 PM EDT Home Care Visit [facility] [address] [place] [address] Shakira Hand, RN SN HOME VISIT 01/29/2025 3:30 PM EDT Home Care Visit [facility] [address] [place] [phone] Yane Lanza, PT PT HOME VISIT 01/29/2025 8:15 AM EDT Home Care Visit [facility] [address] [place] [phone] Krysta Charles FELT CUTTER HOME VISIT 01/29/2025 Refill [facility] Internal Medicine [address] [place] [address] Antione Segura PA-C Medication Refill 01/29/2025 Telephone [facility] Internal Medicine [address] [place] [address] Antione Segura PA-C Request For Order(s) 01/26/2025 Home Care Visit [facility] [address] [place] [address] Karlene Berumen, HUA TELEPHONE ENCOUNTER 01/25/2025 2:30 PM EDT Home Care Visit [facility] [address] [place] [phone] Yane Lanza, PT PT EVALUATION 01/25/2025 4:00 AM EDT Home Care Visit [facility] [address] [place] [address] Krysta Charles FELT CUTTER HOME VISIT 01/25/2025 1:00 AM EDT Home Care Visit [facility] [address] [place], [place] [phone] Karlene Berumen RN SN HOME VISIT 01/24/2025 Telephone [facility] Internal Medicine [address] [place] [address] Antione Segura PA-C PFT 01/24/2025 Telephone [facility] Internal Medicine [address] [place] [address] Eliana Prabhakar, ANGELINA Breast Cancer Screening 01/23/2025 9:00 AM EDT Home Care Visit [facility] [address] [place] [phone] Rich Mariscal LPN HOME VISIT 01/23/2025 4:30 AM EDT Home Care Visit [facility] [address] [place] [phone] Krysta Charles FELT CUTTER HOME VISIT 01/22/2025 Home Care Visit [facility] [address] [place] [phone] Yane Lanza, NIKKO TELEPHONE ENCOUNTER 01/22/2025 Refill [facility] Internal Medicine [address] [place] [address] Antione Segura PA-C Medication Refill 01/18/2025 11:00 AM EDT Home Care Visit [facility] [address] [place] [phone] Shakira Hand RN SN HOME VISIT 01/18/2025 9:15 AM EDT Home Care Visit [facility] [address] [place] [phone] Krysta Charles FELT CUTTER HOME VISIT 01/18/2025 Telephone [facility] Internal Medicine [address] [place] [address] Antione Segura PA-C Medication Question (Gabapentin) 01/18/2025 Episode Documentation Update [facility] [address] [place] [phone] Mayra Burton from Last 3 Months Immunizations Immunization Administration Dates Next Due COVID-19 (Pre-04/05) Pfizer Vaccine, mRNA, PF 10/02/2020,09/11/2020 INFLUENZA, SPLIT VIRUS, TRIVALENT PF 04/12/2025, 02/29/2024,06/20/2015 Influenza Quadrivalent Prese rvative Free IM 07/29/2023,02/27/2022,05/06/2021,02/21,04/01/2018 [...] EST Inhaled Oxygen Concentration - - Weight 94.3 kg (208 lb) 03/28/2025 9:41 AM EDT Height 156.2 cm (5' 1.5 ) 03/28/2025 9:41 AM EDT Body Mass Index 38.67 03/28/2025 9:41 AM EDT Plan of Treatment Upcoming Encounters Date Type Department Care Team (Late st Contact Info) Description 04/06/2025 Procedure Pass [facility], Ct Scan [address] [address] 04/23/2025 2:00 AM EST Appointment [facility] [address] [place] [phone] Shakira Hand, HUA [address] [place] [address] 04/24/2025 9:40 AM EST Office Visit [facility] Internal Medicine [address] [place] [address] Antione Segura PA-C [address] [place] [address] 04/25/2025 2:00 AM EST Appointment [facility] [address] [place] [phone] Shakira Hand, HUA [address] [place] [address] 05/01/2025 8:00 AM EST Appointment [facility], Ct Scan [address] [address] Antione Segura, MIREYA [address] [place] [address] 06/25/2025 9:30 AM EST Telemedicine [facility] Neurology [address] [place] [address] Jn Cardoza MD [address] [place] [address], [address] [place] [address] Health Maintenance Due Date Last Done Comments COLOGUARD 01/09/2008 FIT TEST 01/09/2008 FOBT 01/09/2008 SIGMOIDOSCOPY 01/09/2008 VIRTUAL COLONOSCOPY 01/09/2008 RSV VACCINE (1 - Risk 50-74 years 1-dose series) 2013 ZOSTER VACCINES (1 of 2) 2013 PAP SMEAR 02/21/2023 02/22/2020, 02/12, 08/27/2014 COLONOSCOPY 12/05/2023 12/04/2013, 12/04/2013 COLORECTAL CANCER SCREENING 12/05/2023 Adult Td,Tdap Booster 12/30/2023 12/29/2013 COVID-19 VACCINE ( season) 2025 07/18/2021, 10/02/2020, 09/11/2020 REPEAT PHQ 04/21/2025 03/21/2025, 03/21/2025 BLOOD PRESSURE 10/18/2025 04/20/2025 LUNG CANCER SCREENING (LDCT Only) 12/21/2025 12/21/2024, [...] PNEUMOCOCCAL VACCINES (50+ years) Completed 02/29/2024, 02/22/2020 INFLUENZA VACCINE Completed 04/12/2025, , 07/29/2023, Additional history exists HEPATITIS A VACCINES Aged Out No long er eligible based on patient's age to complete this topic HIB VACCINES Aged Out No longer eligi ble based on patient's age to complete this topic IPV VACCINES Aged Out No longer eligi ble [...] Date/Time Associated Diagnosis Comments OUTSIDE IMAGING Routine 04/16/2025 7:39 AM EST OUTSIDE XR CHEST REPORT ONLY Routine 04/11/2025 [...] Maintenance Results * Outside Imaging Report Only (04/16/2025 7:39 AM EST) [facility] Provider IMG XR CHEST Final Res ult * Outside XR??Chest Report Only (04/11/2025 8:35 AM EDT) [facility] Provider IMG XR CHEST Final Res ult * Outside Potassium Level (04/11/2025) Only the most recent of3 resultswithin the time period is included. Potassium level - External 4.0 3.4 - 5.0 mmol/L [facility] Provider LAB BLOOD ORDERABLES Mariya l Result * (ABNORMAL) Outside Serum Creatinine Level (04/11/2025) Only the most recent of3 resultswithin the time period is included. Creatinine, serum - External 0.68(A) 0.8 - 1.3 mg/dL [facility] Provider LAB BLOOD ORDERABLES Mariya l Result * Outside ALT Level (04/11/2025) Only the most recent of3 resultswithin the time period is included. ALT - External 20 5 - 30 U/L us Historical Provider MD LAB BLOOD ORDERABLES Mariya l Result * Outside Lab (04/08/2025 1:09 PM EDT) us Historical Provider MD LAB BLOOD BKR ORDERABLES Final Result * Outside Imaging Report Only (04/08/2025 7:50 AM EDT) us Historical Provider MD IMG XR CHEST Final Res ult * US Soft Tissues of Head and Neck (Salivary Gland) (04/06/2025 12:20 PM EDT) [facility] IMG RECOMMENDATION COMMENT parotid lesion [facility] Anatomical Region Laterality Modality Neck, Head Ultrasound [...] clinician's provided indication for this examination in [facility]: Parotid region mass TECHNIQUE: Ultrasound [...] clinician's provided indication for this examination in [facility]:Parotid region mass TECHNIQUE: Ultrasound of [...] CONTRAST (03/28/2025 2:46 PM EDT) MGB IMG OIL CHANGE TECHNICIAN COMMENT see results [facility] Anatomical Region Laterality Modality Head Computed Tomogra phy 03/28/2025 2:54 PM EDT Impressions 03/28/2025 3:15 PM EDT 1. No acute intracranial findings. No evidence of acute infarct or hemorrhage. 2. Left parotid gland nodular density. Follow-up parotid ultrasound or neck CT with contrast recommended. A clinically significant result was initiated on 03/28/2025 3:15 PM, Message ID [id number]. Narrative 03/28/2025 3:[address] HEAD WITHOUT CONTRAST Referring clinician's provided indication for this examination in [facility]: * Dizziness, persistent/recurrent, cardiac or vascular cause [...] provided indication for this examination in Epic: *Dizziness, persistent/recurrent, cardiac or vascular cause suspected [...] was initiated on 03/28/2025 3:15 PM,Message ID [id number]. us Antione Segura PA-C IMG CT HEAD/NECK Final [...] RESULT ENTRY ONLY (02/14/2025 2:39 PM EDT) [facility] Provider HEALTH MAINTENANCE Final Result * HM LDCT PROCEDURE FOR RESULT ENTRY ONLY (12/21/2024) LDCT - External CTA chest, juanito pulm nodules [facility] Provider HEALTH MAINTENANCE Final Result * (ABNORMAL) Lipid panel (08/22/2021 8:13 AM EST) HDL 54 mg/dL [facility] Comment: Interpretation <40 mg/dL: Low HDL cholesterol (major risk factor for CHD) Greater than or equal to 60 mg/dL: High HDL cholesterol ( negative risk factor for CHD) HDL - cholesterol is affected by a number of factors, e.g. smoking, excerise, hormones, sex and age. CHOLESTEROL 237 0 - 240 mg/dL [facility] TRIGLYCERIDES 201(H) 30 - 160 mg/dL [facility] LDL 143(H) 50 - 129 mg/dL [facility] Comment: LDL levels in terms of risk for coronary heart disease: <100 mg/dL: Optimal 100-129 mg/dL: Near or above optimal 130-159 mg/dL: Borderline high 160-189 mg/dL: High >190 mg/dL: Very High CARDIAC RISK RATIO 4.4 3.3 - 4.4 C [facility] Blood 08/22/2021 8:13 AM EST 08/22/2021 8:17 AM EST Jennifer Duke NP LAB BLOOD BKR ORDERABLES Final Result [address] [address] * Pap Smear (02/22/2020 12:00 AM EDT) 02/22/2020 02/23/2020 8:2 1 AM EDT Narrative SEE NARRATIVE - 02/27/2020 11:20 AM EDT [address] [address] Repairer Shoe Sticks: Perla Luis MD OBSTETRICS TEACHER Cytology Report FINAL DIAGNOSIS A. PAP SMEAR [...] 52, 56, 58, 59, 66, 68) by [employer] On[employer]arity HR-HPV analysis. Clinical correlation is advised. This HPV test was performed at [facility], [address] [place] [address]. This test has been FDA approved for SurePath cervical cytology specimens. The accuracy and precision of this test for all other specimen sources has been verified in the Cytopathology Laboratory of the [facility] and has not been cleared or approved by the U.S. Food and Drug Administration. Clinical correlation is advised. CLINICAL HISTORY Date of Last Menstrual Period: 2009 Menstrual History: Post Menopausal Other Clinical Conditions: Screening Pap SPECIMEN SOURCE A: PAP SMEAR (SUREPATH) CE Patient Name: ART CONSTANTINONDGeneva Kerns. : 1965 (Age: 55) Sex: F Institution: [facility] Location: [facility] Date of Collection: 02/22/2020 Date of Reported: 02/27/2020 11:20 Results to: Jennifer Duke MSN, BSN us Jennifer Duke SENIOR LEAD DEVELOPER CYTOLOGY ORDERABLES Final Resul t Performing Organization Address City/[facility]/ZIP Co de Phone Number SEE NARRATIVE * Hepatitis C antibody, qualitative (05/25/2019 10:24 AM EST) HCV NON-REACTIV E NON-REACTI VE [facility] Blood 05/25/2019 10:2 4 AM EST 05/25/2019 10:26 AM EST us Jennifer Duke NP LAB BLOOD BKR ORDERABLES Final Result Performing Organization Address City/[facility]/ZIP Co de Phone Number [address] [address] * COLONOSCOPY FOR RESULT ENTRY ONLY (12/04/2013) Colonoscopy repeat 10 yrs us Historical Provider HEALTH MAINTENANCE Final Result from Last 3 Months or Most Recently Relevant to Health Maintenance Insurance [facility] MEDICARE A [facility] MEDICARE A Marielle [place], [place] [facility] [place] [address] MEDICARE A [facility] MEDICARE A [facility] Address: [facility] [address] [place] [address] MEDICARE A [facility] MED[facility] A Advance Directives For more information, please contact: [phone] (9AM - 5PM [place]/[facility], Wednesday-Wednesday) Documents on File Type Date Recorded Patient Screen Room Operator Expl anation Healthcare Proxy 03/28/2025 [facility] Health Care Proxy Form scan 03/28/2025 [facility] 02/15/2025 [facility] * Full Code (Latest Code Status on File) Date Activated Date Inactivated Comments 02/15/2025 9:52 AM Question Answer Comments Code Status Confirmed With: Patient Care Teams Sr. Manager Relationship Specialty Start Date End Date Antione Segura PA-C [address] [place] [address] [email or web address] PCP - General Physician Physician Relations Specialist 10/12/24 Jn Cardoza MD [address] [place] [address], 2nd [place] [address] [email or web address] Neurology 02/03/24 Denys Henriquez MD [address] [place] [address] [place] [address] Pulmonary Disease 02/03/24 Rhett Cortez MD [address] [place] [address] [email or web address] Insurance Assigned Provider 01/20/25 Additional Source Comments The information contained in this document represents components of the legal health record. It is not the complete legal health record.[facility]
--- OUTSIDE RECORDS SUMMARY | 2025-04-20 19:53 | XMS_ITS | Encounter Summary ---
Author Organization [facility] Address [address] [place] [address] Phone Care Team Providers Care Digital Print Operator Name Role Phone Jn Cardoza MD Unavailable Denys Henriquez MD Unavailable Antione Segura PA-C Primary Care Provider Rhett Cortez MD Unavailable Reason for Visit * Reason Onset Date Comments PFT 01/24/2025 Encounter Details Date Type Department Care Team (Late st Contact Info) Description 01/24/2025 Telephone [facility] Internal Medicine [address] [place], [place] [phone] Antione Segura PA-C [address] [place] [address] [email or web address] PFT Social History Tobacco Use Types Packs/Day [...] GED, job training, learning the [place] language, technical skills, or developing parenting skills)? [...] of Facility fax is being sent to: [facility] pulmonary Document(s) requested:all PFT testing with Graphing and [employer] [facility] CSS Agent (Please do not reply to this user, as this inbox is not monitored. Thank you.) Thank you. documented in this encounter Plan of Treatment Upcoming Encounters Date Type Department Care Team (Late st Contact Info) Description 04/06/2025 Procedure Pass [facility], Ct Scan - [address] [address] 04/23/2025 2:00 AM EST Appointment [facility] [address] [place] [address] Shakira Hand, HUA [address] [place] [address] 04/24/2025 9:40 AM EST Office Visit [facility] Internal Medicine [address] [place] [address] Antione Segura PA-C [address] [place] [address] 04/25/2025 2:00 AM EST Appointment [facility] [address] [place] [phone] Shakira Hand RN [address] [place] [address] 05/01/2025 8:00 AM EST Appointment [facility], Ct Scan - [facility] [address] [place] [address] Antione Segura PA-C [address] [place] [address] [email or web address] 06/25/2025 9:30 AM EST Telemedicine [facility] Neurology [address] [place] [address] Jn Cardoza MD [address] [place] [address] documented as of this encounter Visit Diagnoses Not on filedocumented in this encounter Additional Health Concerns Assessment Noted Time PHQ-9 Depression Total Score: 20 025 9:08 PM EDT PHQ-2 Depression Total Score: 6 12/28/19 25 9:08 PM EDT documented as of this encounter Care Teams Digital Print Operator Relationship Specialty Start Date End Date Antione Segura PA-C [address] [place] [address] PCP - General Physician Boat Person 10/12/24 Jn Cardoza MD [address] [place] [address] Neurology 02/03/24 Denys Henriquez MD [address] [place] [address] [place] [address] Pulmonary Disease 02/03/24 Rhett Cortez MD [address] [place] [address] [email or web address] Insurance Assigned Provider 01/20/25 documented as of this encounter Additional Source Comments The information contained in this document represents components of the legal health record. It is not the complete legal health record.[facility]
--- OUTSIDE RECORDS SUMMARY | 2025-04-20 19:53 | XMS_ITS | Encounter Summary ---
Author Organization [facility] Address [address] [place] [address] Phone Care Team Providers Care Metal Spinner Name Role Phone Lang Germain MD Unavailable [phone] Jennifer Duke SWEATBAND DRUMMER Primary Care Provider Sirisha Huertas PONY ROUGHER Primary Care Provider Jn Cardoza MD Unavailable Denys Henriquez MD Unavailable Liyah Patterson MD Unavailable Liyah Patterson MD Primary Care Provider [phone] Antione Segura PA-C Primary Care Provider [phone] Rhett Cortez MD Unavailable Encounter Details Date Type Department Care Team (Late st Contact Info) Description 02/25/2023 Procedure Pass [facility], [address] [address] Social History Tobacco Use Types Packs/Day Years [...] st Contact Info) Description 04/06/2025 Procedure Pass [facility], [address] [address] 04/23/2025 2:00 AM EST Appointment [facility] [address] [place] [phone] Shakira Hand RN [address] [place] [address] [email or web address] 04/24/2025 9:40 AM EST Office Visit [facility] Internal Medicine [address] [place] [address] Antione Segura PA-C [address] [place] [address] 04/25/2025 2:00 AM EST [facility] [address] [place] [phone] Shakira Hand RN [address] [place] [address] 05/01/2025 8:00 AM EST Appointment [address] [address] Antione Segura PA-C [address] [place] [address] 06/25/2025 9:30 AM EST Telemedicine [facility] Neurology [address] [place] [address] Jn Cardoza MD 22 [facility], 2nd [place] [address] [email or web address] documented as of this encounter Visit Diagnoses Not on filedocumented in this encounter Additional Health Concerns Assessment Noted Time PHQ-9 Depression Total Score: 21 023 12:35 PM EDT PHQ-2 Depression Total Score: 2 02/19/20 23 6:55 PM EDT documented as of this encounter Care Teams Metal Spinner Relationship Specialty Start Date End Date Jennifer Duke, SWEATBAND DRUMMER [address] [place] [address] [email or web address] PCP - General Family Medicine 01/31/20 06/22/23 Sirisha Huertas FNP [address] [address] [email or web address] PCP - General Nurse Practitioner 06/23/23 08/03/24 Liyah Patterson MD [address] [address] [email or web address] PCP - General Family Medicine 08/04/24 10/11/24 Antione Segura PA-C [address] [place] [address] [email or web address] PCP - General Physician Bucket Operator 10/12/24 Lang Germain MD [address] [place] [address] [email or web address] Insurance Assigned Provider 09/18/23 02/19/24 Jn Cardoza MD [facility], 2nd [place] [address] Neurology 02/03/24 Denys Henriquez MD [address] [place] [address] [place] [address] Pulmonary Disease 02/03/24 Liyah Patterson MD 15 [facility] Subhash. [address] [place] [address] Insurance Assigned Provider 02/19/24 01/20/25 Rhett Cortez MD [address] [place] [address] Insurance Assigned Provider 01/20/25 documented as of this encounter Additional Source Comments The information contained in this document represents components of the legal health record. It is not the complete legal health record.[facility]
--- OUTSIDE RECORDS SUMMARY | 2025-04-20 19:53 | XMS_ITS | Encounter Summary ---
Author Organization [facility] Address [address] [address] Phone Care Team Providers Care Physical Therapy Teacher Name Role Phone Jn Cardoza MD Unavailable Denys Henriquez MD Unavailable Antione Segura PA-C Primary Care Provider [phone] Rhett Cortez MD Unavailable Encounter Details Date Type Department Care Team (Late st Contact Info) Description 04/15/2025 Home Health Resumption of Care Planning [facility] [address] [place] [phone] Dennise Rodriguez, HUA [address] [place] [address] [email or web address] Social History Tobacco Use [...] st Contact Info) Description 04/06/2025 Procedure Pass [facility], [address] [address] 04/23/2025 2:00 AM EST Appointment [facility] [address] [place] [phone] Shakira Hand RN [address] [place] [address] 04/24/2025 9:40 AM EST Office Visit [facility] Internal Medicine [address] [place] [address] Antione Segura PA-C [address] [place] [address] 04/25/2025 2:00 AM EST [facility] [address] [place] [phone] Shakira Hand RN [address] [place] [address] 05/01/2025 8:00 AM EST Appointment [address] [address] Antione Segura PA-C [address] [place] [address] 06/25/2025 9:30 AM EST Telemedicine [facility] Neurology [address] [place] [address] Jn Cardoza MD [address] [place] [address] [email or web address] documented as of this encounter Visit Diagnoses Not on filedocumented in this encounter Additional Health Concerns Assessment Noted Time PHQ-9 Depression Total Score: 23 025 3:04 PM EDT PHQ-2 Depression Total Score: 5 03/21/20 25 3:04 PM EDT documented as of this encounter Care Teams Physical Therapy Teacher Relationship Specialty Start Date End Date Antione Segura PA-C [address] [place] [address] [email or web address] PCP - General Physician Carpenter Supervisor 10/12/24 Jn Cardoza MD [address] [place] [address] Neurology 02/03/24 Denys Henriquez MD [address] [place] [address] [place] [address] Pulmonary Disease 02/03/24 Rhett Cortez MD [address] [place] [address] [email or web address] Insurance Assigned Provider 01/20/25 documented as of this encounter Additional Source Comments The information contained in this document represents components of the legal health record. It is not the complete legal health record.[facility]
--- OUTSIDE RECORDS SUMMARY | 2025-04-20 19:53 | XMS_ITS | Encounter Summary ---
Author Organization [facility] Address [address] [place] [address] Phone Care Team Providers Care Sales Merchandise Associate Name Role Phone Lang Germain MD Unavailable Jennifer Duke TIERCE FILLER Primary Care Provider Sirisha Huertas KILN FURNITURE CASTER Primary Care Provider Jn Cardoza MD Unavailable Denys Henriquez MD Unavailable Liyah Patterson MD Unavailable Liyah Patterson MD Primary Care Provider [phone] Antione Segura PA-C Primary Care Provider [phone] Rhett Cortez MD Unavailable Encounter Details Date Type Department Care Team (Late st Contact Info) Description 11/27/2021 Procedure Pass [facility], [address] [place] [address] Social History Tobacco Use Types Packs/Day Years [...] st Contact Info) Description 04/06/2025 Procedure Pass [facility], Ct Scan [address] [address] 04/23/2025 2:00 AM EST [facility]ment [facility] [address] [place] [address] Shakira Hand, HUA [address] [place] [address] 04/24/2025 9:40 AM EST Office Visit [facility] [place] Internal Medicine 40 [place] [address] Antione Segura PA-C [address] [place] [address] 04/25/2025 2:00 AM EST Appointment [facility] [address] [place] [address] Shakira Hand, HUA [address] [place] [address] 05/01/2025 8:00 AM EST Appointment [facility] Ct Scan - [address] [address] Antione Segura PA-C [address] [place] [address] 06/25/2025 9:30 AM EST Telemedicine [facility] Neurology [address] [place] [address] Jn Cardoza MD 22 [facility], 2nd [place] [address] [email or web address] documented as of this encounter Visit Diagnoses Not on filedocumented in this encounter Additional Health Concerns Assessment Noted Time PHQ-2 Depression Total Score: 0 05/25/20 9:02 AM EST documented as of this encounter Care Teams Sales Merchandise Associate Relationship Specialty Start Date End Date Jennifer Duke NP [address] [place] [address] PCP - General Family Medicine 01/31/20 06/22/23 Sirisha Huertas FNP [address] [place] [address] [email or web address] PCP - General Nurse Practitioner 06/23/23 08/03/24 Liyah Patterson MD [address] [place] [address] PCP - General Family Medicine 08/04/24 10/11/24 Antione Segura PA-C [address] [place] [address] PCP - General Physician Induction Brazer 10/12/24 Lang Germain MD 40 [place] [address] Insurance Assigned Provider 09/18/23 02/19/24 Jn Cardoza MD [address] [facility], 2nd [place] [address] [email or web address] Neurology 02/03/24 Denys Henriquez MD [address] [place] [address] [place] [address] Pulmonary Disease 02/03/24 Liyah Patterson MD [address] [facility] Subhash. [address] [place] [address] [email or web address] Insurance Assigned Provider 02/19/24 01/20/25 Rhett Cortez MD 40 [place] [address] Insurance Assigned Provider 01/20/25 documented as of this encounter Additional Source Comments The information contained in this document represents components of the legal health record. It is not the complete legal health record.[facility]
--- OUTSIDE RECORDS SUMMARY | 2025-04-20 19:53 | XMS_ITS | Encounter Summary ---
Author Organization [facility] Address [address] [address] Phone Care Team Providers Care Heel Varnisher Name Role Phone Jn Cardoza MD Unavailable Denys Henriquez MD Unavailable Antione Segura PA-C Primary Care Provider Rhett Cortez MD Unavailable Encounter Details Date Type Department Care Team (Late st Contact Info) Description 02/09/2025 Home Health Resumption of Care Planning [facility] [address] [place] [phone] Koki Simons RN [address] [place] [address] [email or web address] Social History Tobacco Use Types Packs/Day Years [...] st Contact Info) Description 04/06/2025 Procedure Pass [address] [address] 04/23/2025 2:00 AM EST Appointment [facility] [address] [place] [address] Shakira Hand RN [address] [place] [address] 04/24/2025 9:40 AM EST Office Visit [facility] Internal Medicine [address] [place] [address] Antione Segura PA-C [address] [place] [address] 04/25/2025 2:00 AM EST [facility] [address] [place] [phone] Shakira Hand RN [address] [place] [address] 05/01/2025 8:00 AM EST Appointment [address] [address] nAtione Segura PA-C 40 [place] [address] 06/25/2025 9:30 AM EST Telemedicine [facility] Neurology 22 [place] [address] Jn Cardoza MD [address] [address] [email or web address] documented as of this encounter Visit Diagnoses Not on filedocumented in this encounter Additional Health Concerns Assessment Noted Time PHQ-9 Depression Total Score: 15 025 9:44 AM EDT PHQ-2 Depression Total Score: 4 02/01/20 25 9:44 AM EDT documented as of this encounter Care Teams Heel Varnisher Relationship Specialty Start Date End Date Antione Segura PA-C 40 [place] [address] PCP - General Physician Sulphate Tester 10/12/24 Jn Cardoza MD [address] [address] Neurology 02/03/24 Denys Henriquez MD [address] [place] [address] [place] [address] Pulmonary Disease 02/03/24 Rhett Cortez MD 40 [place] [address] [email or web address] Insurance Assigned Provider 01/20/25 documented as of this encounter Additional Source Comments The information contained in this document represents components of the legal health record. It is not the complete legal health record.[facility]
--- OUTSIDE RECORDS SUMMARY | 2025-04-20 19:54 | XMS_ITS | Encounter Summary ---
Author Organization [facility] Address [address] [place] [address] Phone Care Team Providers Care Bootmaker Hand Name Role Phone Jn Cardoza MD Unavailable Denys Henriquez MD Unavailable Antione Segura PA-C Primary Care Provider Rhett Cortez MD Unavailable Encounter Details Date Type Department Care Team (Late st Contact Info) Description 04/16/2025 Orders Only [facility] Internal Medicine 40 [place] [address] Provider, MD Omar [address] [place] [address] Social History Tobacco Use Types Packs/Day [...] high school, GED, job training, learning the Bulgarian language, technical skills, or developing parenting skills)? [...] Contact Info) Description 04/06/2025 Procedure Pass [facility], Ct [address] [address] 04/23/2025 2:00 AM EST Appointment [facility] [address] [place] [phone] Shakira Hand RN 168 [place] [address] 04/24/2025 9:40 AM EST Office Visit [facility] Internal Medicine 40 [place] [address] Antione Segura PA-C 40 [place] [address] 04/25/2025 2:00 AM EST [facility] [address] [place] [phone] Shakira Hand RN [address] [place] [address] 05/01/2025 8:00 AM EST Appointment [address] [address] Antione Segura PA-C 40 [place] [address] 06/25/2025 9:30 AM EST Telemedicine [facility] Neurology [address] [place] [address] Jn Cardoza MD [address] [address] documented as of this encounter Procedures Procedure Name Priority Date/Time Associated Diagnosis Comments OUTSIDE IMAGING Routine 04/16/2025 7:39 AM EST documented in this encounter Results * Outside Imaging Report Only (04/16/2025 7:39 AM EST) us Historical Provider MD DAWKINS XR CHEST Final Res ult documented in this encounter Visit Diagnoses Not on filedocumented in this encounter Additional Health Concerns Assessment Noted Time PHQ-9 Depression Total Score: 23 025 3:04 PM EDT PHQ-2 Depression Total Score: 5 03/21/20 25 3:04 PM EDT documented as of this encounter Care Teams Bootmaker Hand Relationship Specialty Start Date End Date Antione Segura PA-C 40 [place] [address] PCP - General Physician Machine Taper 10/12/24 Jn Cardoza MD [address] [address] Neurology 02/03/24 Denys Henriquez MD [address] [place] [address] [place] [address] Pulmonary Disease 02/03/24 Rhett Cortez MD 40 [place] [address] Insurance Assigned Provider 01/20/25 documented as of this encounter Additional Source Comments The information contained in this document represents components of the legal health record. It is not the complete legal health record.[facility]
--- OUTSIDE RECORDS SUMMARY | 2025-04-20 19:54 | XMS_ITS | Encounter Summary ---
Author Organization [facility] Address [address] [place] [address] Phone Care Team Providers Care Bulk System Operator Name Role Phone Jn Cardoza MD Unavailable Denys Henriquez MD Unavailable [phone] Antione Segura PA-C Primary Care Provider [phone] Rhett Cortez MD Unavailable Encounter Details Date Type Department Care Team (Late st Contact Info) Description 04/09/2025 Orders Only [facility] Internal Medicine 40 [place] [address] Provider, MD Omar [address] [place] [address] Social History Tobacco Use Types Packs/Day [...] high school, GED, job training, learning the Kenyan language, technical skills, or developing parenting skills)? [...] st Contact Info) Description 04/06/2025 Procedure Pass [facility], Ct [address] [address] 04/23/2025 2:00 AM EST Appointment [facility] [address] [place] [phone] Shakira Hand RN 168 [place] [address] 04/24/2025 9:40 AM EST Office Visit [facility] Internal Medicine 40 [place] [address] Antione Segura PA-C 40 [place] [address] 04/25/2025 2:00 AM EST [facility] [address] [place] [phone] Shakira Hand RN [address] [place] [address] 05/01/2025 8:00 AM EST Appointment [address] [address] Antione Segura PA-C 40 [place] [address] 06/25/2025 9:30 AM EST Telemedicine [facility] Neurology [address] [place] [address] Jn Cardoza MD [address] [address] documented as of this encounter Procedures Procedure Name Priority Date/Time Associated Diagnosis Comments OUTSIDE LAB Routine 04/08/2025 1:09 PM EDT OUTSIDE IMAGING Routine 04/08/2025 7:50 AM EDT documented in this encounter Results * Outside Lab (04/08/2025 1:09 PM EDT) Historical Provider LAB BLOOD BKR ORDERABLES Final Result * Outside Imaging Report Only (04/08/2025 7:50 AM EDT) Historical Provider IMG XR CHEST Final Res ult documented in this encounter Visit Diagnoses Not on filedocumented in this encounter Additional Health Concerns Assessment Noted Time PHQ-9 Depression Total Score: 23 025 3:04 PM EDT PHQ-2 Depression Total Score: 5 03/21/20 25 3:04 PM EDT documented as of this encounter Care Teams Bulk System Operator Relationship Specialty Start Date End Date Antione Segura PA-C 40 [place] [address] [email or web address] PCP - General Physician Sales Program Manager 10/12/24 Jn Cardoza MD [address] [address] Neurology 02/03/24 Denys Henriquez MD [address] [place] [address] [place] [address] Pulmonary Disease 02/03/24 Rhett Cortez MD 40 [place] [address] [email or web address] Insurance Assigned Provider 01/20/25 documented as of this encounter Additional Source Comments The information contained in this document represents components of the legal health record. It is not the complete legal health record.[facility]
--- OUTSIDE RECORDS SUMMARY | 2025-04-20 19:54 | XMS_ITS | Encounter Summary ---
Author Organization [facility] Address [address] [place] [address] Phone Care Team Providers Care Rough Rice Grader Name Role Phone Jn Cardoza MD Unavailable Denys Henriquez MD Unavailable Antione Segura PA-C Primary Care Provider Rhett Cortez MD Unavailable Encounter Details Date Type Department Care Team (Late st Contact Info) Description 03/28/2025 Procedure Pass [facility], Ct Scan - [address] [address] Social History Tobacco Use Types Packs/Day Years [...] high school, GED, job training, learning the [place] Verdean language, technical skills, or developing parenting skills)? [...] st Contact Info) Description 04/06/2025 Procedure Pass [address] [address] 04/23/2025 2:00 AM EST Appointment [facility] [address] [place] [phone] Shakira Hand, HUA 168 [place] [address] 04/24/2025 9:40 AM EST Office Visit [facility] Internal Medicine 40 [place] [address] Antione Segura PA-C 40 [place] [address] 04/25/2025 2:00 AM EST [facility] [address] [place] [address] Shakira Hand, HUA 168 [place] [address] 05/01/2025 8:00 AM EST Appointment [facility], [address] [address] Antione Segura PA-C 40 [place] [address] 06/25/2025 9:30 AM EST Telemedicine [facility] Neurology [address] [place] [address] Jn Cardoza MD [address] [place] [address], [address] [place] [address] [email or web address] documented as of this encounter Visit Diagnoses Not on filedocumented in this encounter Additional Health Concerns Assessment Noted Time PHQ-9 Depression Total Score: 23 025 3:04 PM EDT PHQ-2 Depression Total Score: 5 03/21/20 25 3:04 PM EDT documented as of this encounter Care Teams Rough Rice Grader Relationship Specialty Start Date End Date Antione Segura PA-C 40 [place] [address] PCP - General Physician Phone Triage Specialist 10/12/24 Jn Cardoza MD 22 [facility], 2nd [place] [address] Neurology 02/03/24 Denys Henriquez MD [address] [place] [address] [place] [address] Pulmonary Disease 02/03/24 Rhett Cortez MD 40 [place] [address] [email or web address] Insurance Assigned Provider 01/20/25 documented as of this encounter Additional Source Comments The information contained in this document represents components of the legal health record. It is not the complete legal health record.[facility]
--- OUTSIDE RECORDS SUMMARY | 2025-04-20 19:54 | XMS_ITS | Encounter Summary ---
Author Organization [facility] Address [address] [place] [address] Phone Care Team Providers Care Reservations And Ticketing Agent Name Role Phone Lang Germain MD Unavailable [phone] Jennifer Duke LIFE ADVISOR Primary Care Provider Sirisha Huertas ATHLETIC TURF WORKER Primary Care Provider Jn Cardoza MD Unavailable Denys Henriquez MD Unavailable Liyah Patterson MD Unavailable Liyah Patterson MD Primary Care Provider [phone] Antione Segura PA-C Primary Care Provider Rhett Cortez MD Unavailable Encounter Details Date Type Department Care Team (Late st Contact Info) Description 05/06/2021 Procedure Pass [facility], [address] [address] Social History Tobacco Use Types Packs/Day Years [...] st Contact Info) Description 04/06/2025 Procedure Pass [address] [address] 04/23/2025 2:00 AM EST [facility]ment [facility] [address] [place] [phone] Shakira Hand RN 168 [place] [address] 04/24/2025 9:40 AM EST Office Visit [facility] Internal Medicine 40 [place] [address] Antione Segura PA-C 40 [place] [address] 04/25/2025 2:00 AM EST [facility]ment [facility] [address] [place] [phone] Shakira Hand RN [address] [place] [address] 05/01/2025 8:00 AM EST Appointment [address] [address] Antione Segura PA-C 40 [place] [address] [email or web address] 06/25/2025 9:30 AM EST Telemedicine [facility] Neurology 22 [place] [address] Jn Cardoza MD [address] [place] [address] [email or web address] documented as of this encounter Visit Diagnoses Not on filedocumented in this encounter Additional Health Concerns Assessment Noted Time PHQ-2 Depression Total Score: 0 05/25/20 19 9:02 AM EST documented as of this encounter Care Teams Reservations And Ticketing Agent Relationship Specialty Start Date End Date Jennifer Duke, LIFE ADVISOR [address] [place] [address] [email or web address] PCP - General Family Medicine 01/31/20 06/22/23 Sirisha Huertas FNP [address] [place] [address] [email or web address] PCP - General Nurse Practitioner 06/23/23 08/03/24 Liyah Patterson MD [address] [place] [address] [email or web address] PCP - General Family Medicine 08/04/24 10/11/24 Antione Segura PA-C [address] [place] [address] [email or web address] PCP - General Physician Access Consultant 10/12/24 Lang Germain MD [address] [place] [address] [email or web address] Insurance Assigned Provider 09/18/23 02/19/24 Jn Cardoza MD [address] [place] [address] [email or web address] Neurology 02/03/24 Denys Henriquez MD [address] [place] [address] [place] [address] Pulmonary Disease 02/03/24 Liyah Patterson MD 15 [facility] 201 [place] [address] [email or web address] Insurance Assigned Provider 02/19/24 01/20/25 Rhett Cortez MD 40 [place] [address] [email or web address] Insurance Assigned Provider 01/20/25 documented as of this encounter Additional Source Comments The information contained in this document represents components of the legal health record. It is not the complete legal health record.[facility]
--- OUTSIDE RECORDS SUMMARY | 2025-04-20 19:54 | XMS_ITS | Encounter Summary ---
Author Organization [facility] Address [address] [place] [address] Phone Care Team Providers Care Accredited Legal Secretary Name Role Phone Jn Cardoza MD Unavailable Denys Henriquez MD Unavailable Antione Segura PA-C Primary Care Provider [phone] Rhett Cortez MD Unavailable Reason for Visit * Auth/Cert (Routine) Specialty Diagnoses / Procedures Referred By Dary smith Referred To Contact Referral ID Status Reason Start Date Expiration Date Visits Re quested Visits Authorized [id number] 1 1 Encounter Details Date Type Department Care Team (Late st Contact Info) Description 04/12/2025 Home Care Visit [facility] 30 [place] [address] Shakira Hand, HUA 168 [place] [address] [email or web address] SN OASIS TRANSFER Social History Tobacco Use Types Packs/Day Years [...] high school, GED, job training, learning the Jamaican language, technical skills, or developing parenting skills)? [...] st Contact Info) Description 04/06/2025 Procedure Pass [facility], [address] [address] 04/23/2025 2:00 AM EST [facility] [address] [place] [address] Shakira Hand RN [address] [place] [address] 04/24/2025 9:40 AM EST Office Visit [facility] Internal Medicine 40 [place] [address] Antione Segura PA-C 40 [place] [address] 04/25/2025 2:00 AM EST Appointment [facility] [address] [place] [address] Shakira Hand RN [address] [place] [address] 05/01/2025 8:00 AM EST Appointment [facility], [address] [address] Antione Segura PA-C 40 [place] [address] 06/25/2025 9:30 AM EST Telemedicine [facility] Neurology [address] [place] [address] Jn Cardoza MD 22 [facility], 2nd [place] [address] [email or web address] documented as of this encounter Visit Diagnoses Not on filedocumented in this encounter Additional Health Concerns Assessment Noted Time PHQ-9 Depression Total Score: 23 025 3:04 PM EDT PHQ-2 Depression Total Score: 5 03/21/20 25 3:04 PM EDT documented as of this encounter Home Health Visit - Care Plan Visit Details Visit Type -SN OASIS TRANSFE R Discipline -Custodial Problems Problem Description Start Date Status Goals Interve ntions HH - Medication Management Disciplines: All Active Home Health Disciplines, Custodial 12/27/2024 Active 1 goal linked to scheduled/document [...] related to medication errors and/or interactions Scheduled - Complete medication review every visit and [...] Scheduled documented in this encounter Care Teams Accredited Legal Secretary Relationship Specialty Start Date End Date Antione Segura PA-C [address] [place] [address] PCP - General Physician Night Shift 10/12/24 Jn Cardoza MD [address] [place] [address], [address] [place] [address] [email or web address] Neurology 02/03/24 Denys Henriquez MD [address] [place] [address] [place] [address] Pulmonary Disease 02/03/24 Rhett Cortez MD [address] [place] [address] [email or web address] Insurance Assigned Provider 01/20/25 documented as of this encounter Additional Source Comments The information contained in this document represents components of the legal health record. It is not the complete legal health record.[facility]
--- OUTSIDE RECORDS SUMMARY | 2025-04-20 19:54 | XMS_ITS | Encounter Summary ---
Author Organization [facility] Address [address] [address] Phone Care Team Providers Care Hospitality Housekeeper Name Role Phone Jn Cardoza MD Unavailable Denys Henriquez MD Unavailable Antione Segura PA-C Primary Care Provider [phone] Rhett Cortez MD Unavailable Encounter Details Date Type Department Care Team (Late st Contact Info) Description 03/20/2025 Home Health Resumption of Care Planning [facility] 30 [place] [address] Koki Simons RN 168 [place] [address] [email or web address] [...] st Contact Info) Description 04/06/2025 Procedure Pass [address] [address] 04/23/2025 2:00 AM EST Appointment [facility] [address] [place] [address] Shakira Hand RN 168 [place] [address] 04/24/2025 9:40 AM EST Office Visit [facility] Internal Medicine 40 [place] [address] Antione Segura PA-C [address] [place] [address] 04/25/2025 2:00 AM EST [facility] [address] [place] [phone] Shakira Hand RN [address] [place] [address] 05/01/2025 8:00 AM EST Appointment [address] [address] Antione Segura PA-C 40 [place] [address] 06/25/2025 9:30 AM EST Telemedicine [facility] Neurology 22 [place] [address] Jn Cardoza MD [address] [address] [email or web address] documented as of this encounter Visit Diagnoses Not on filedocumented in this encounter Additional Health Concerns Assessment Noted Time PHQ-9 Depression Total Score: 15 025 9:44 AM EDT PHQ-2 Depression Total Score: 4 02/01/20 25 9:44 AM EDT documented as of this encounter Care Teams Hospitality Housekeeper Relationship Specialty Start Date End Date Antione Segura PA-C 40 [place] [address] PCP - General Physician Senior Web Applications Developer 10/12/24 Jn Cardoza MD [address] [address] Neurology 02/03/24 Denys Henriquez MD [address] [place] [address] [place] [address] Pulmonary Disease 02/03/24 Rhtet Cortez MD 40 [place] [address] [email or web address] Insurance Assigned Provider 01/20/25 documented as of this encounter Additional Source Comments The information contained in this document represents components of the legal health record. It is not the complete legal health record.[facility]
--- OUTSIDE RECORDS SUMMARY | 2025-04-20 19:54 | XMS_ITS | Encounter Summary ---
Author Organization [facility] Address [address] [place] [address] Phone Care Team Providers Care Senior Energy Market Coordinator Name Role Phone Jn Cardoza MD Unavailable Denys Henriquez MD Unavailable Antione Segura PA-C Primary Care Provider Rhett Cortez MD Unavailable Reason for Visit * Reason Onset Date Comments Forms & Paperwork 04/10/2025 Encounter Details Date Type Department Care Team (Late st Contact Info) Description 04/10/2025 Telephone [facility] Internal Medicine 40 [place], [place] [phone] Antione Segura PA-C 40 [place] [address] [email or web address] Forms & Paperwork Social History Tobacco Use [...] Progress Notes * Gwen Jennings CMA - 04/20/2025 2:45 PM EST Call to Eric, left message to call back. * Gwen Jennings CMA - 04/20/2025 2:45 PM EST Images from the original note were not included. Antione Segura PA-C to [facility] Delvin Sandra (Selected Message) 04/19/25 12:47 PM Yes, I have it but she needs to be seen before I sign off as she was recently back in the hospital for COPD exacerbation * Nadia Sena - 04/19/2025 9:18 AM EST Patient Eric called inquiring about forms - states Dental office has not received - please advise when completed [phone] * Antione Segura PA-C - 04/11/2025 7:26 AM EDT Noted will fill out * Gwen Jennings CMA - 04/10/2025 12:47 PM EDT In basket * Georgina Krause - 04/10/2025 11:53 AM EDT Patients came into the office to drop off a dental clearance form. Form has been scanned into patients chart and placed in bin for PCP to complete. Please fax to [phone] once completed. documented in this encounter Plan of Treatment Upcoming Encounters Date Type Department Care Team (Late st Contact Info) Description 04/06/2025 Procedure Pass [address] [address] 04/23/2025 2:00 AM EST [facility] [address] [place] [address] Shakira Hand RN 168 [place] [address] 04/24/2025 9:40 AM EST Office Visit [facility] [place] Internal Medicine 40 [place] [address] Antione Segura PA-C 40 [place] [address] 04/25/2025 2:00 AM EST [facility] [address] [place] [address] Shakira Hand RN 168 [place] [address] 05/01/2025 8:00 AM EST Appointment [address] [address] Antione Segura PA-C 40 [place] [address] 06/25/2025 9:30 AM EST Telemedicine [facility] Neu[address] [place] [address] Jn Cardoza MD [address] [address] documented as of this encounter Visit Diagnoses Not on filedocumented in this encounter Additional Health Concerns Assessment Noted Time PHQ-9 Depression Total Score: 23 025 3:04 PM EDT PHQ-2 Depression Total Score: 5 03/21/20 25 3:04 PM EDT documented as of this encounter Care Teams Senior Energy Market Coordinator Relationship Specialty Start Date End Date Antione Segura PA-C 40 [place] [address] PCP - General Physician Industrial X Ray Operator 10/12/24 Jn Cardoza MD [address] [place] [address] Neurology 02/03/24 Denys Henriquez MD [address] [place] [address] [place] [address] Pulmonary Disease 02/03/24 Rhett Cortez MD 40 [place] [address] Insurance Assigned Provider 01/20/25 documented as of this encounter Additional Source Comments The information contained in this document represents components of the legal health record. It is not the complete legal health record.[facility]
--- OUTSIDE RECORDS SUMMARY | 2025-04-20 19:54 | XMS_ITS | Encounter Summary ---
Author Organization [facility] Address [address] [place] [address] Phone Care Team Providers Care Industrial Spraypainter Name Role Phone Jn Cardoza MD Unavailable Denys Henriquez MD Unavailable [phone] Antione Segura PA-C Primary Care Provider Rhett Cortez MD Unavailable Reason for Visit * Auth/Cert (Routine) Specialty Diagnoses / Procedures Referred By Dary smith Referred To Contact Referral ID Status Reason Start Date Expiration Date Visits Re quested Visits Authorized [id number] 1 1 Encounter Details Date Type Department Care Team (Late st Contact Info) Description 04/18/2025 Home Care Visit [facility] [address] [place] [address] Viktoriya Taylor, HUA [address] [place] [address] [email or web address] TELEPHONE ENCOUNTER Social History [...] st Contact Info) Description 04/06/2025 Procedure Pass [facility], [address] [address] 04/23/2025 2:00 AM EST [facility]ment [facility] [address] [place] [address] Shakira Hand RN [address] [place] [address] 04/24/2025 9:40 AM EST Office Visit [facility] Internal Medicine [address] [place] [address] Antione Segura PA-C 40 [place] [address] 04/25/2025 2:00 AM EST [facility]ment [facility] [address] [place] [address] Shakira Hand RN 168 [place] [address] 05/01/2025 8:00 AM EST Appointment [facility], [address] [address] Antione Segura PA-C 40 [place] [address] 06/25/2025 9:30 AM EST Telemedicine [facility] Neu[place] [address] Jn Cardoza MD [address] [place] [address] documented as of this encounter Visit Diagnoses Not on filedocumented in this encounter Additional Health Concerns Assessment Noted Time PHQ-9 Depression Total Score: 23 025 3:04 PM EDT PHQ-2 Depression Total Score: 5 03/21/20 25 3:04 PM EDT documented as of this encounter Care Teams Industrial Spraypainter Relationship Specialty Start Date End Date Antione Segura PA-C [address] [place] [address] PCP - General Physician Computer Art Instructor 10/12/24 Jn Cardoza MD [address] [place] [address] Neurology 02/03/24 Denys Henriquez MD [address] [place] [address] [place] [address] Pulmonary Disease 02/03/24 Rhett Cortez MD [address] [place] [address] [email or web address] Insurance Assigned Provider 01/20/25 documented as of this encounter Additional Source Comments The information contained in this document represents components of the legal health record. It is not the complete legal health record.[facility]
--- OUTSIDE RECORDS SUMMARY | 2025-04-20 19:54 | XMS_ITS | Encounter Summary ---
Author Organization [facility] Address [address] [place] [address] Phone Care Team Providers Care General Machine Operator Name Role Phone Charbel Webber MD Unavailable Alverto Gandara MD Unavailable Maikel Rawls MD Unavailable [phone] Jennifer Duke BOATWRIGHT Primary Care Provider Lang Germain MD Primary Care Provider Jennifer Duke BOATWRIGHT Primary Care Provider Lang Germain MD Unavailable Lang Germain MD Primary Care Provider Jennifer Duke BOATWRIGHT Primary Care Provider Lang Germain MD Primary Care Provider Jennifer Duke BOATWRIGHT Primary Care Provider Lang Germain MD Primary Care Provider Jennifer Duke BOATWRIGHT Primary Care Provider Lang Germain MD Primary Care Provider Brethren, Jennifer L BOATWRIGHT Unavailable Jennifer Duke BOATWRIGHT Primary Care Provider [phone] Lang Germain MD Primary Care Provider [phone] Jennifer Duke BOATWRIGHT Primary Care Provider [phone] Sriisha Huertas MEDICAL OFFICE RECEPTIONIST ASSISTANT Primary Care Provider [phone] Jn Cardoza MD Unavailable Denys Henriquez MD Unavailable [phone] Liyah Patterson MD Unavailable Liyah Patterson MD Primary Care Provider [phone] Antione Segura PA-C Primary Care Provider [phone] Rhett Cortez MD Unavailable Encounter Details Date Type Department Care Team (Late st Contact Info) Description 09/13/2018 Procedure Pass [facility], [address] [address] Social History Tobacco Use Types Packs/Day Years [...] st Contact Info) Description 04/06/2025 Procedure Pass [facility], Ct Scan [address] [address] 04/23/2025 2:00 AM EST Appointment [facility] [address] [place] [phone] Shakira Hand, HUA [address] [place] [address] 04/24/2025 9:40 AM EST Office Visit [facility] Internal Medicine 40 [place] [address] Antione Segura PA-C 40 [place] [address] 04/25/2025 2:00 AM EST Appointment [facility] [address] [place] [phone] Shakira Hand RN 168 [place] [address] 05/01/2025 8:00 AM EST Appointment [facility], Ct Scan - [address] [address] Antione Segura PA-C 40 [place] [address] 06/25/2025 9:30 AM EST Telemedicine [facility] Neurology [address] [place] [address] Jn Cardoza MD 22 [facility], 2nd [place] [address] [email or web address] documented as of this encounter Visit Diagnoses Not on filedocumented in this encounter Additional Health Concerns Assessment Noted Time PHQ-2 Depression Total Score: 0 08/20/19 19 9:13 AM EST documented as of this encounter Care Teams General Machine Operator Relationship Specialty Start Date End Date Jennifer Duke NP [address] [place] [address] [email or web address] PCP - General Family Medicine 09/08/18 09/14/18 Lang Germain MD [address] [place] [address] [email or web address] PCP - General Internal Medicine 09/15/18 10/02/18 Jennifer Duke NP [address] [place] [address] PCP - General Family Medicine 10/03/18 10/05/18 Lang Germain MD [address] [place] [address] [email or web address] PCP - General Internal Medicine 10/06/18 10/12/18 Jennifer Duke NP [address] [place] [address] [email or web address] PCP - General Family Medicine 10/13/18 11/09/18 Lang Germain MD [address] [place] [address] [email or web address] PCP - General Internal Medicine 11/10/18 11/22/18 Jennifer Duke NP [address] [place] [address] PCP - General Family Medicine 11/23/18 11/30/18 Lang Germain MD [address] [place] [address] PCP - General Internal Medicine 12/01/18 12/13/18 Jennifer Duke NP [address] [address] [email or web address] PCP - General Family Medicine 12/14/18 11/12/19 Lang Germain MD [address] [place] [address] [email or web address] PCP - General Internal Medicine 11/13/19 12/03/19 Jennifer Duke NP [address] [address] [email or web address] PCP - General Family Medicine 12/04/19 01/23/20 Lang Germain MD [address] [place] [address] [email or web address] PCP - General Internal Medicine 01/24/20 01/30/20 Jennifer Duke NP [address] [place] [address] [email or web address] PCP - General Family Medicine 01/31/20 06/22/23 Sirisha Huertas FNP [address] [place] [address] [email or web address] PCP - General Nurse Practitioner 06/23/23 08/03/24 Liyah Patterson MD [address] [address] [email or web address] PCP - General Family Medicine 08/04/24 10/11/24 Antione Segura PA-C 40 [place] [address] PCP - General Physician Audio Visual Director 10/12/24 Charbel Webber MD [address] [place] [address], [address] [place] [address] Historical LMR Provider 04/01/17 0 Alverto Gandara MD [address] [place] [address], [address] [place] [address] Historical LMR Provider 04/01/17 12/03/19 Maikel Rawls MD [address] [place] [address] [email or web address] Historical LMR Provider 04/01/17 12/03/19 Lang Germain MD [address] [place] [address] [email or web address] Insurance Assigned Provider 09/18/23 02/19/24 Jennifer Duke NP [address] [place] [address] [email or web address] Nurse Practitioner Family Medicine 11/13/19 01/30/20 Jn Cardoza MD [address] [place] [address], [address] [place] [address] Neurology 02/03/24 Denys Henriquez MD [address] [place] [address] [place] [address] Pulmonary Disease 02/03/24 Liyah Patterson MD [address] [place] [address] [email or web address] Insurance Assigned Provider 02/19/24 01/20/25 Rhett Cortez MD [address] [place] [address] [email or web address] Insurance Assigned Provider 01/20/25 documented as of this encounter Additional Source Comments The information contained in this document represents components of the legal health record. It is not the complete legal health record.[facility]
--- OUTSIDE RECORDS SUMMARY | 2025-04-20 19:54 | XMS_ITS | Encounter Summary ---
Author Organization [facility] Address [address] [place] [address] Phone Care Team Providers Care Campus Dean Name Role Phone Charbel Webber MD Unavailable Alverto Gandara MD Unavailable Maikel Rawls MD Unavailable [phone] Lang Germain MD Unavailable Jennifer Duke BOAT ASSEMBLER Primary Care Provider Lang Germain MD Primary Care Provider Jennifer Duke BOAT ASSEMBLER Unavailable [phone] Jennifer Duke BOAT ASSEMBLER Primary Care Provider Lang Germain MD Primary Care Provider Jennifer Duke BOAT ASSEMBLER Primary Care Provider Sirisha Huertas NUCLEAR EQUIPMENT RESEARCH ENGINEER Primary Care Provider [phone] Jn Cardoza MD Unavailable Denys Henriquez MD Unavailable [phone] Liyah Patterson MD Unavailable Liyah Patterson MD Primary Care Provider [phone] Antione Segura PA-C Primary Care Provider [phone] Rhett Cortez MD Unavailable Encounter Details Date Type Department Care Team (Late Contact Info) Description 03/20/2019 Telephone [facility] Internal Medicine [address] [place] [address] Jennifer Duke, BOAT ASSEMBLER [address] [facility] [address] [place] [address] Social History Tobacco Use Types Packs/Day Years [...] Department Care Team (Late Contact Info) Description 04/06/2025 Procedure Pass [facility], Ct Scan - [facility] [address] [place] [address] 04/23/2025 2:00 AM EST Appointment [facility] [address] [place] [phone] Shakira Hand, HUA [address] [place] [address] 04/24/2025 9:40 AM EST Office Visit [facility] Internal Medicine 40 [place] [address] Antione Segura PA-C 40 [place] [address] [email or web address] 04/25/2025 2:00 AM EST Appointment [facility] 30 [place] [address] Shakira Hand RN 168 [place] [address] [email or web address] 05/01/2025 8:00 AM EST Appointment [facility], Ct Scan - Main Hospital 30 [place] [address] Antione Segura PA-C 40 [place] [address] [email or web address] 06/25/2025 9:30 AM EST Telemedicine [facility] Neurology [address] [place] [address] Jn Cardoza MD 22 [facility], 2nd [place] [address] documented as of this encounter Visit Diagnoses Not on filedocumented in this encounter Additional Health Concerns Assessment Noted Time PHQ-2 Depression Total Score: 0 11/18/19 19 2:05 PM EDT documented as of this encounter Care Teams Campus Dean Relationship Specialty Start Date End Date Jennifer Duke NP 40 [place] [address] PCP - General Family Medicine 12/14/18 11/12/19 Lang Germain MD 40 [place] [address] PCP - General Internal Medicine 11/13/19 12/03/19 Jennifer Duke NP 40 [place] [address] PCP - General Family Medicine 12/04/19 01/23/20 Lang eGrmain MD [address] [place] [address] [email or web address] PCP - General Internal Medicine 01/24/20 01/30/20 Jennifer Duke NP [address] [place] [address] PCP - General Family Medicine 01/31/20 06/22/23 Sirisha Huertas FNP [address] [place] [address] 201 [place] [address] [email or web address] PCP - General Nurse Practitioner 06/23/23 08/03/24 Liyah Patterson MD [address] [place] [address] 201 [place] [address] [email or web address] PCP - General Family Medicine 08/04/24 10/11/24 Antione Segura PA-C [address] [place] [address] [email or web address] PCP - General Physician Medical Interpreter 10/12/24 Charbel Webber MD [address] [place] [address], [address] [place] [address] [email or web address] Historical LMR Provider 04/01/17 0 Alverto Gandara MD [address] [place] [address], 2nd [place] [address] [email or web address] Historical LMR Provider 04/01/17 12/03/19 Maikel Rawls MD [address] [address] [email or web address] Historical LMR Provider 04/01/17 12/03/19 Lang Germain MD [address] [place] [address] [email or web address] Insurance Assigned Provider 09/18/23 02/19/24 Jennifer Duke NP [address] [place] [address] [email or web address] Nurse Practitioner Family Medicine 11/13/19 01/30/20 Jn Cardoza MD 22 [facility], 2nd [place] [address] [email or web address] Neurology 02/03/24 Denys Henriquez MD [address] [place] [address] [place] [address] Pulmonary Disease 02/03/24 Liyah Patterson MD 15 [facility] [place]. 201 [place] [address] [email or web address] Insurance Assigned Provider 02/19/24 01/20/25 Rhett Cortez MD [address] [place] [address] [email or web address] Insurance Assigned Provider 01/20/25 documented as of this encounter Additional Source Comments The information contained in this document represents components of the legal health record. It is not the complete legal health record.[facility]
--- OUTSIDE RECORDS SUMMARY | 2025-04-20 19:54 | XMS_ITS | Encounter Summary ---
Author Organization [facility] Address [address] [place] [address] Phone Care Team Providers Care Cable Tender Name Role Phone Lang Germain MD Unavailable Jennifer Duke MARINA MANAGER Primary Care Provider Sirisha Huertas SENIOR SOFTWARE ENGINEERING MANAGER Primary Care Provider Jn Cardoza MD Unavailable Denys Henriquez MD Unavailable Liyah Patterson MD Unavailable Liyah Patterson MD Primary Care Provider [phone] Antione Segura PA-C Primary Care Provider Rhett Cortez MD Unavailable Encounter Details Date Type Department Care Team (Late st Contact Info) Description 09/01/2021 Procedure Pass [address] [address] Social History Tobacco Use Types Packs/Day Years [...] st Contact Info) Description 04/06/2025 Procedure Pass [address] [address] 04/23/2025 2:00 AM EST [facility] [address] [place] [phone] Shakira Hand RN 168 [place] [address] 04/24/2025 9:40 AM EST Office Visit [facility] Internal Medicine 40 [place] [address] Antione Segura PA-C 40 [place] [address] 04/25/2025 2:00 AM EST Appointment [facility] [address] [place] [phone] Shakira Hand RN [address] [place] [address] 05/01/2025 8:00 AM EST Appointment [address] [address] Antione Segura PA-C 40 [place] [address] 06/25/2025 9:30 AM EST Telemedicine [facility] Neurology 22 [place] [address] Jn Cardoza MD [address] [place] [address] [email or web address] documented as of this encounter Visit Diagnoses Not on filedocumented in this encounter Additional Health Concerns Assessment Noted Time PHQ-2 Depression Total Score: 0 05/25/20 19 9:02 AM EST documented as of this encounter Care Teams Cable Tender Relationship Specialty Start Date End Date Jennifer Duke, MARINA MANAGER [address] [place] [address] [email or web address] PCP - General Family Medicine 01/31/20 06/22/23 Sirisha Huertas FNP [address] [place] [address] [email or web address] PCP - General Nurse Practitioner 06/23/23 08/03/24 Liyah Patterson MD [address] [place] [address] [email or web address] PCP - General Family Medicine 08/04/24 10/11/24 Antione Segura PA-C [address] [place] [address] [email or web address] PCP - General Physician Sales Engagement Manager 10/12/24 Lang Germain MD [address] [place] [address] [email or web address] Insurance Assigned Provider 09/18/23 02/19/24 Jn Cardoza MD [address] [place] [address] [email or web address] Neurology 02/03/24 Denys Henriquez MD [address] [place] [address] [place] [address] Pulmonary Disease 02/03/24 Liyah Patterson MD 15 [facility] [address] [place] [address] [email or web address] Insurance Assigned Provider 02/19/24 01/20/25 Rhett Cortez MD 40 [place] [address] [email or web address] Insurance Assigned Provider 01/20/25 documented as of this encounter Additional Source Comments The information contained in this document represents components of the legal health record. It is not the complete legal health record.[facility]
--- OUTSIDE RECORDS SUMMARY | 2025-04-20 19:54 | XMS_ITS | Encounter Summary ---
Author Organization [facility] Address [address] [place] [address] Phone Care Team Providers Care Completion Manager Name Role Phone Jn Cardoza MD Unavailable Denys Henriquez MD Unavailable Antione SeguraC Primary Care Provider [phone] Rhett Cortez MD Unavailable Reason for Visit * Reason Onset Date Comments TCM Visit 04/10/2025 Needs appt Encounter Details Date Type Department Care Team (Late st Contact Info) Description 04/10/2025 Telephone [facility] Internal Medicine [address] [place], [place] [phone] Antione Segura PA-C [address] [place], [place] [phone] [email or web address] TCM Visit (Needs appt ) Social History [...] Progress Notes * Antione Segura PA-C - 04/16/2025 11:22 AM EST noted * Isidro Ji - 04/16/2025 9:53 AM EST Patient called cannot make today's appt has been readmitted to [facility] for exacerbation of COPD * Georgina Krause - 04/11/2025 11:41 AM [...] Care Management New Patient: YES/NO: no Hospitalization Name:[facility] Discharge Date:04/09/2025 Reason for Visit+ Diagnosis: [...] from discharge date Additional Note (if applicable): [facility] Call Center CSS Agent (Please do not reply to this user, as this inbox is not monitored. Thank you.) Thank you. documented in this encounter Plan of Treatment Upcoming Encounters Date Type Department Care Team (Late st Contact Info) Description 04/06/2025 Procedure Pass [facility], Ct Scan - Main Hospital 30 [place] [address] 04/23/2025 2:00 AM EST Appointment [facility] [address] [place] [address] Shakira Hand, HUA [address] [place] [address] 04/24/2025 9:40 AM EST Office Visit [facility] Internal Medicine [address] [place] [address] Antione Segura PA-C 40 [place] [address] 04/25/2025 2:00 AM EST [facility] [address] [place] [phone] Shakira Hand, HUA [address] [place] [address] 05/01/2025 8:00 AM EST Appointment [facility], Ct Scan - [address] [address] Antione Segura PA-C 40 [place] [address] 06/25/2025 9:30 AM EST Telemedicine [facility] Neurology [address] [place] [address] Jn Cardoza MD [address] [place] [address] documented as of this encounter Visit Diagnoses Not on filedocumented in this encounter Additional Health Concerns Assessment Noted Time PHQ-9 Depression Total Score: 23 025 3:04 PM EDT PHQ-2 Depression Total Score: 5 03/21/20 25 3:04 PM EDT documented as of this encounter Care Teams Completion Manager Relationship Specialty Start Date End Date Antione Segura PA-C [address] [place] [address] PCP - General Physician Textile Conversion Manager 10/12/24 Jn Cardoza MD [address] [place] [address] [email or web address] Neurology 02/03/24 Denys Henriquez MD [address] [place] [address] [place] [address] Pulmonary Disease 02/03/24 Rhett Cortez MD [address] [place] [address] [email or web address] Insurance Assigned Provider 01/20/25 documented as of this encounter Additional Source Comments The information contained in this document represents components of the legal health record. It is not the complete legal health record.[facility]
--- OUTSIDE RECORDS SUMMARY | 2025-04-20 19:54 | XMS_ITS | Encounter Summary ---
Author Organization [facility] Address [address] [place] [address] [place] [address] Phone Care Team Providers Care Sheet Rock Applier Name Role Phone Jn Cardoza MD Unavailable Denys Henriquez MD Unavailable Antione Segura PA-C Primary Care Provider Rhett Cortez MD Unavailable Reason for Visit * Reason Comments Medication Refill Encounter Details Date Type Department Care Team (Late st Contact Info) Description 04/19/2025 Refill [facility] Internal Medicine [address] [place] [address] Sirisha Huertas, PICKING TABLE WORKER 15 [facility] Subhash [address] [place] [address] [email or web address] Medication Refill Social History Tobacco Use Types [...] high school, GED, job training, learning the Polish language, technical skills, or developing parenting skills)? [...] Progress Notes * Gwen Jennings CMA - 04/19/2025 11:20 AM EST Pt left message requesting rf urgently as pt has 1 pill left for tomorrow. * Gwen Jennings CMA - 04/19/2025 10:55 AM EST Rx Care Gap Status - Instructions for Clinical Staff (prescriber discretion applies): > Mismatch review guide > N/a - No action needed Visit Info Last visit: 03/28/2025 Antione Segura PA-C - Internal Medicine [facility] > Requested f/u: Return in about 1 month (around 04/28/2025) for Recheck 40 minutes . Upcoming visit: 04/24/2025 Antione Segura PA-C - Internal Medicine [facility] ACTIONS TAKEN BY Gwen Jennings CMA - Criteria met. Antidepressant / Anxiolytics (Non-Benzodiazepine) Rx Protocol - duloxetine HCl Criteria met; renew for up to 12 months. Visit in the past 14 months: Yes documented in this encounter Plan of Treatment Upcoming Encounters Date Type Department Care Team (Late st Contact Info) Description 04/06/2025 Procedure Pass [facility], Ct Scan - [address] [address] 04/23/2025 2:00 AM EST Appointment [facility] [address] [place] [phone] Shakira Hand, HUA [address] [place] [address] 04/24/2025 9:40 AM EST Office Visit [facility] Internal Medicine [address] [place] [address] Antione Segura PA-C [address] [place] [address] 04/25/2025 2:00 AM EST [facility] [address] [place] [phone] Shakira Hand RN [address] [place] [address] 05/01/2025 8:00 AM EST Appointment [facility], Ct Scan - Main Hospital [address] [place] [address] Antione Segura PA-C [address] [place] [address] 06/25/2025 9:30 AM EST Telemedicine [facility] Neurology [address] [place] [address] Jn Cardoza MD 22 [facility] [address]nd [place] [address] [email or web address] documented as of this encounter Visit Diagnoses Diagnosis Anxiety Anxiety state, unspecified documented in this encounter Additional Health Concerns Assessment Noted Time PHQ-9 Depression Total Score: 23 025 3:04 PM EDT PHQ-2 Depression Total Score: 5 03/21/20 25 3:04 PM EDT documented as of this encounter Care Teams Sheet Rock Applier Relationship Specialty Start Date End Date Antione Segura PA-C [address] [place] [address] [email or web address] PCP - General Physician Case Management Director 10/12/24 Jn Cardoza MD [address] [place] [address], [address] [place] [address] [email or web address] Neurology 02/03/24 Denys Henriquez MD [address] [place] [address] [place] [address] Pulmonary Disease 02/03/24 Rhett Cortez MD [address] [place] [address] [email or web address] Insurance Assigned Provider 01/20/25 documented as of this encounter Additional Source Comments The information contained in this document represents components of the legal health record. It is not the complete legal health record.[facility]
--- OUTSIDE RECORDS SUMMARY | 2025-04-20 19:54 | XMS_ITS | Encounter Summary ---
Author Organization [facility] Address [address] [place] [phone] Phone Care Team Providers Care Director River Restoration Name Role Phone Charbel Webber MD Unavailable Alverto Gandara MD Unavailable Maikel Rawls MD Unavailable [phone] Lang Germain MD Primary Care Provider Jennifer Duke YARDAGE ESTIMATOR Primary Care Provider Lang Germain MD Primary Care Provider Jennifer Duke YARDAGE ESTIMATOR Primary Care Provider Lang Germain MD Primary Care Provider Jennifer Duke YARDAGE ESTIMATOR Primary Care Provider Lang Germain MD Unavailable Lang Germain MD Primary Care Provider Jennifer Duke YARDAGE ESTIMATOR Primary Care Provider Lang Germain MD Primary Care Provider Jennifer Duke YARDAGE ESTIMATOR Primary Care Provider Lang Germain MD Primary Care Provider [phone] Jennifer Duke YARDAGE ESTIMATOR Primary Care Provider [phone] Lang Germain MD Primary Care Provider [phone] Jennifer Duke YARDAGE ESTIMATOR Unavailable [phone] Jennifer Duke YARDAGE ESTIMATOR Primary Care Provider [phone] Lang Germain MD Primary Care Provider [phone] Jennifer Duke YARDAGE ESTIMATOR Primary Care Provider [phone] Aleksandar Sirishafrancisca Kendall POWER SHOVEL OPERATOR Primary Care Provider [phone] Jn Cardoza MD Unavailable Denys Henriquez MD Unavailable [phone] Liyah Patterson MD Unavailable Liyah Patterson MD Primary Care Provider [phone] Antione Segura PA-C Primary Care Provider [phone] Rhett Cortez MD Unavailable Reason for Referral * MRI/CAT Scan - Closed Specialty Diagnoses / Procedures Referred By Contac t Referred To Contact Procedures CT Head Outside (No Interpretation) System, Provider Not In, PhD [address] [address] Referral ID Status Reason Start Date Expiration Date Visits Re quested Visits Authorized [id number] Closed 06/20/2018 06/20/2019 1 1 * MRI/CAT Scan - Closed Specialty Diagnoses / Procedures Referred By Contac t Referred To Contact Procedures CT Face Outside (No Interpretation) System, Provider Not In, PhD [address] [address] Referral ID Status Reason Start Date Expiration Date Visits Re quested Visits Authorized [id number] Closed 06/20/2018 06/20/2019 1 1 Encounter Details Date Type Department Care Team (Late st Contact Info) Description 06/20/2018 Ancillary Orders [facility],Outside Imaging [address] [place] [address] System, Provider [place] In, [place] [address] Social History Tobacco Use Types Packs/Day Years [...] st Contact Info) Description 04/06/2025 Procedure Pass [address] [address] 04/23/2025 2:00 AM EST [facility] [address] [place] [address] Shakira Hand RN [address] [place] [address] 04/24/2025 9:40 AM EST [facility] Internal Medicine [address] [place] [address] Antione Segura, ORESTES-C [address] [place] [address] 04/25/2025 2:00 AM EST [facility]ment [facility] [address] [place] [phone] Shakira Hand, HUA [address] [place] [address] 05/01/2025 8:00 AM EST Appointment [address] [address] Antione Segura PA-C [address] [place] [address] 06/25/2025 9:30 AM EST Telemedicine [facility] Neurology [address] [place] [address] Jn Cardoza MD 22 [facility], 2nd [place] [address] [email or web address] documented as of this encounter Results * [...] as of this encounter Care Teams Director River Restoration Relationship Specialty Start Date End Date Lang Germain MD [address] [place] [address] PCP - General Internal Medicine 06/13/18 06/30/18 Jennifer Duke NP [address] [place] [address] [email or web address] PCP - General Family Medicine 07/01/18 08/02/18 Lang Germain MD [address] [place] [address] [email or web address] PCP - General Internal Medicine 08/03/18 09/07/18 Jennifer Dkue NP [address] [place] [address] [email or web address] PCP - General Family Medicine 09/08/18 09/14/18 Lang Germain MD 40 [place] [address] [email or web address] PCP - General Internal Medicine 09/15/18 10/02/18 Jennifer Duke NP [address] [place] [address] [email or web address] PCP - General Family Medicine 10/03/18 10/05/18 Lang Germain MD [address] [place] [address] [email or web address] PCP - General Internal Medicine 10/06/18 10/12/18 Jennifer Duke NP [address] [place] [address] [email or web address] PCP - General Family Medicine 10/13/18 11/09/18 Lang Germain MD [address] [place] [address] [email or web address] PCP - General Internal Medicine 11/10/18 11/22/18 Jennifer Duke NP [address] [place] [address] [email or web address] PCP - General Family Medicine 11/23/18 11/30/18 Lang Germain MD [address] [place] [address] [email or web address] PCP - General Internal Medicine 12/01/18 12/13/18 Jennifer Duke NP [address] [place] [address] [email or web address] PCP - General Family Medicine 12/14/18 11/12/19 Lang Germain MD [address] [place] [address] [email or web address] PCP - General Internal Medicine 11/13/19 12/03/19 Jennifer Duke NP [address] [place] [address] [email or web address] PCP - General Family Medicine 12/04/19 01/23/20 Lang Germain MD [address] [place] [address] [email or web address] PCP - General Internal Medicine 01/24/20 01/30/20 Jennifer Duke NP [address] [place] [address] [email or web address] PCP - General Family Medicine 01/31/20 06/22/23 Sirisha Huertas FNP [address] [address] [email or web address] PCP - General Nurse Practitioner 06/23/23 08/03/24 Liyah Patterson MD [address] [address] [email or web address] PCP - General Family Medicine 08/04/24 10/11/24 Antione Segura PA-C [address] [place] [address] [email or web address] PCP - General Physician Guest Services Associate 10/12/24 Charbel Webber MD [address] [place] [address], [address] [place] [address] [email or web address] Historical LMR Provider 04/01/17 0 Alverto Gandara MD [address] [place] [address], 2[address] [place] [address] [email or web address] Historical LMR Provider 04/01/17 12/03/19 Maikel Rawls MD [address] [place] [address] [email or web address] Historical LMR Provider 04/01/17 12/03/19 Lang Germain MD [address] [place] [phone] Insurance Assigned Provider 09/18/23 02/19/24 Jennifer Duke, YARDAGE ESTIMATOR [address] [place] [phone] Nurse Practitioner Family Medicine 11/13/19 01/30/20 Jn Cardoza MD 22 [facility], 2nd [place] [address] Neurology 02/03/24 Denys Henriquez MD [address] [place] [address] [place] [address] Pulmonary Disease 02/03/24 Liyah Patterson MD 15 [facility] Subhash. [address] [place] [address] [email or web address] Insurance Assigned Provider 02/19/24 01/20/25 Rhett Cortez MD [address] [place] [phone] Insurance Assigned Provider 01/20/25 documented as of this encounter Additional Source Comments The information contained in this document represents components of the legal health record. It is not the complete legal health record.[facility]
--- OUTSIDE RECORDS SUMMARY | 2025-04-20 19:54 | XMS_ITS | Encounter Summary ---
Author Organization [facility] Address [address] [place] [address] Phone Care Team Providers Care Doctor Podiatric Medicine Name Role Phone Jn Cardoza MD Unavailable Denys Henriquez MD Unavailable Antione Segura PA-C Primary Care Provider [phone] Rhett Cortez MD Unavailable Reason for Visit * Reason Onset Date Comments Swelling 04/19/2025 Encounter Details Date Type Department Care Team (Late st Contact Info) Description 04/19/2025 Telephone [facility] Internal [facility] [address] [place], [place] [phone] Elida Lindquist, HUA [address] [place], [place] [phone] [email or web address] Swelling Social History Tobacco Use Types Packs/Day Years [...] high school, GED, job training, learning the Vincentian language, technical skills, or developing parenting skills)? [...] as of this encounter Progress Notes * Elida Lindquist RN - 04/20/2025 9:26 AM EST Spoke to Chelle and advised. She states understanding. States she is going to see patient today and will advise. She will make sure pt is able to use her BP cuff. * Elida Lindquist RN - 04/20/2025 9:24 AM EST Images from the original note were not included. Antione Segura PA-C to [facility] Delvin Yu (Selected Message) 04/20/25 6:09 AM Yes, I would like her to start lasix. I have sent in a script for her to start. Please advise RN tomonitor BPs while she is on lasix furosemide (LASIX) 20 MG tablet Take 1 tablet (20 mg total) by mouth daily. Dispense: 7 tablet, Refills: 0 ordered * Elida Lindquist RN - 04/19/2025 11:35 AM EST Shakira with [facility] called and LVM. States pt is having increasing BLE edema. States she has 1+ pitting edema bilaterally from feet to thighs. States pt is noticing her brief is fitting a little tighter as well. She is wondering if PCP would like to rx lasix. * Elida Lindquist RN - 04/19/2025 11:26 AM EST Spoke to Zulma re: results. States she was admitted to [facility] with pneumonia and [facility]13[facility]24 with Antione. States COLETTEA was out today. She has pitting edema in bilateral lower extremities. States she also has some edema in her hands, unable to remove her rings easily. States doesn't normally take lasix, but Shakira was going to call about getting her some. States she has SOBat baseline, slightly worse right now with exertion. No SOB at rest. States she noticed the edema in the hospital, and it has been worsening. She sleeps on a reclining sofa. States she hasn't noticedimprovement in the mornings if it improves after elevation or not, but she will keep an eye out. States she is urinating normally. Advised to elevate legs when resting. Will review with PCP. documented in this encounter Plan of Treatment Upcoming Encounters Date Type Department Care Team (Late st Contact Info) Description 04/06/2025 Procedure Pass [facility], Ct Scan - [address] [address] 04/23/2025 2:00 AM EST Appointment [facility] [address] [place] [phone] Shakira Hand RN [address] [place] [address] 04/24/2025 9:40 AM EST Office Visit [facility] [address] [place] [address] Antione Segura PA-C [address] [place] [address] 04/25/2025 2:00 AM EST Appointment [facility] [address] [place] [phone] Shakira Hand, HUA [address] [place] [address] 05/01/2025 8:00 AM EST Appointment [facility], Ct Scan - [facility] [address] [place] [address] Antione Segura PA-C [address] [place] [address] 06/25/2025 9:30 AM EST Telemedicine [facility] [place] [address] Jn Cardoza MD [address] [place] [address] documented as of this encounter Visit Diagnoses Not on filedocumented in this encounter Additional Health Concerns Assessment Noted Time PHQ-9 Depression Total Score: 23 025 3:04 PM EDT PHQ-2 Depression Total Score: 5 03/21/20 25 3:04 PM EDT documented as of this encounter Care Teams Doctor Podiatric Medicine Relationship Specialty Start Date End Date Antione Segura PA-C [address] [place] [address] PCP - General Physician Pecan Cleaner 10/12/24 Jn Cardoza MD [address] [place] [address] Neurology 02/03/24 Denys Henriquez MD [address] [place] [address] [place] [address] Pulmonary Disease 02/03/24 Rhett Cortez MD [address] [place] [address] [email or web address] Insurance Assigned Provider 01/20/25 documented as of this encounter Additional Source Comments The information contained in this document represents components of the legal health record. It is not the complete legal health record.[facility]
[2025-04-20 19:56] LABS: Anion Gap 12 (12-20); Blood Urea Nitrogen 8 mg/dL (9-16); Calcium 9.5 mg/dL (8.4-10.2); Carbon Dioxide 32 mmol/L (22-29); Chloride 103 mmol/L (96-108); Creatinine Clr Calc Pharmacy 102.9; Estimated Glomerular Filt Rate > 60; Potassium 3.9 mmol/L (3.3-5.1); Sodium 143 mmol/L (135-145)
[2025-04-20 20:06] LABS: NT Pro B Type Natriuretic Pept 123.4 pg/mL (<300); Troponin-I High Sensitivity 7.1 ng/L (<3.5-17.0)
--- NOTE | 2025-04-20 20:25 | PM.IMHP ---
History of Present Illness Date of Service: 04/20/25 Chief Complaint: Shortness of breath 60-year-old female with a past medical history of HTN, HLD, asthma/COPD, JUANITO, trigeminal neuralgia, aortic stenosis, tobacco dependence, pulmonary nodules, obesity, CVA; discharged recently after being treated for COPD exacerbation on 04/17/2025; presented to the hospital today with a chief complaint of shortness of breath. Patient mentioned the past 2 days she has been having worsening shortness of breath. Has been compliant with her prednisone taper. Denies any chest pain or palpitations. Denies any nausea vomiting. Reports a cough. Denies any GI or symptoms. Review of all other systems is negative except mentioned above ER course: Per ER team, patient on presentation noted to be short of breath and wheezing; given nebulizations and steroids. [facility] Medical History Chronic lung disease Morbid obesity Pulmonary nodules Diastolic heart failure Chronic lung disease Hypoxia Panic disorder Hypertension Chronic hypercapnic respiratory failure Aortic stenosis Asthma Hypogammaglobulinemia Smoker JUANITO (obstructive sleep apnea) Elevated troponin COPD (chronic obstructive pulmonary disease) Trigeminal neuralgia Mixed hyperlipidemia Peripheral neuropathy Tobacco use disorder Mood disorder Surgical History History of esophagogastroduodenoscopy (EGD) History of colonoscopy History of lumbar discectomy History of tubal ligation History of excision of mass History of shoulder surgery Social History Household Members: Spouse Household Members Other:: dog Housing: Condominium Do you presently have visiting nurse or other home services: Yes ([facility]) Alcohol intake: current Alcohol intake frequency: holidays/special occasions only Alcohol type: hard liquor Comment: pt refusing bed alarm Patient Tobacco Use Status: Former Tobacco user Tobacco use type: Cigarette Cigarette Packs Per Day: 4 Cigarettes Per Day: 80.0 Years Smoked: 40 Smoked in Last 30 Days: No e-Cigarette/Vaping Use: Never Used Second Hand Smoke Exposure: No Use of substances other than those prescribed or required for medical reasons: No Substance Use Type: Marijuana Advance Directives: Yes Advance Directives on File: Yes Advance Directives Date on File: 03/09/23 Do you have a plan to hurt others: No Plan Nutrition Risks: Dental problems, Difficulty chewing and Difficulty swallowing Patient : No service: No Meds Allergies Allergy/AdvReac Type Severity Reaction Status Date / Time Iodinated Contrast Media (IV Allergy Intermediate HIVES Verified 04/20/25 18:53 CONTRAST) latex (LATEX) Allergy Unknown RASH Verified 04/20/25 18:53 adhesive tape Allergy Rash Verified 04/20/25 18:53 morphine (MORPHINE) AdvReac Unknown VOMITING Verified 04/20/25 18:53 Active Medications: Current Medications Acetaminophen (Acetaminophen 325 Mg Tablet) 650 mg PO Q6H PRN PRN Reason: Pain, Mild 1-3,fever,headache Albuterol/Ipratropium (Albuterol/Iprat 2.5/0.5mg 3 Ml Ampul.Neb) 3 ml INHALE Q4H PRN PRN Reason: Shortness of Breath/Wheezing Calcium Carbonate (Calcium Carbonate 750 Mg Tab.Chew) 750 mg PO Q4H PRN PRN Reason: Heartburn Enoxaparin Sodium (Enoxaparin Sodium 40 Mg/0.4 Ml Syringe) 40 mg SUBCUT Q24H [place] Magnesium Hydroxide (Milk Of Magnesia 30 Ml Oral.Susp) 30 ml PO DAILY PRN PRN Reason: Constipation Melatonin (Melatonin 3 Mg Tablet) 6 mg PO BEDTIME PRN PRN Reason: Insomnia Sodium Chloride (0.9 % Sodium Chloride Flush 3 Ml Syringe) 3 ml IVFLUSH QSHIFT [place] Home Medications ?Medication ?Instructions ?Recorded ?Confirmed ?Last Taken ?Type atorvastatin 80 mg tablet 80 mg PO DAILY@199903/04/23 04/20/25 04/20/25 History oovajbazgo-yobmrghbhegfa-oldiaoty 1 tab PO DAILY MRX1 PRN Migraine 03/04/23 04/20/25 04/07/25 History 50 mg-325 mg-40 mg tablet Headache duloxetine 60 mg capsule,delayed 60 mg PO BID@0600,199903/04/23 04/20/25 04/20/25 History release gabapentin 300 mg capsule 1,200 mg PO TID@0600,1200,199903/04/23 04/20/25 04/20/25 History hyoscyamine sulfate 0.125 mg tablet 0.25 mg PO Q6H PRN Abdominal 03/04/23 04/20/25 04/07/25 History Discomfort Oxygen Home Use 04/16/23 02/26/25 10/28/24 History prazosin 2 mg capsule 2 mg PO DAILY@199904/16/23 04/20/25 04/20/25 History albuterol sulfate 90 mcg/actuation 2 puff inhalation Q4H PRN 01/31/24 04/20/25 04/12/25 History aerosol inhaler Shortness Of Breath Or Wheezing aspirin 81 mg tablet,delayed 81 mg PO DAILY@199905/22/24 04/20/25 04/20/25 History release calcium 600 mg (as 1 tab PO DAILY@199906/20/24 04/20/25 04/20/25 History carbonate)-vitamin D3 5 mcg (200 unit) tablet baclofen 20 mg tablet 20 mg PO TID@0600,1199,199910/29/24 04/20/25 04/20/25 History aripiprazole 5 mg tablet (Abilify) 5 mg PO DAILY@59912/01/24 04/20/25 04/20/25 History oxcarbazepine 300 mg tablet 300 mg PO BID@06,199912/21/24 04/20/25 04/20/25 History lorazepam 0.5 mg tablet 0.5 mg PO BEDTIME@1999 MODERATE 01/04/25 04/20/25 04/20/25 History Anxiety polyethylene glycol 3350 17 17 g PO DAILY PRN Constipation 01/04/25 04/20/25 04/07/25 History gram/dose oral powder (Miralax) budesonide 160 mcg-glycopyr 9 2 inh inhalation BID@0600,1800 02/05/25 04/20/25 04/20/25 History mcg-formot 4.8 mcg/actuation HFA inhaler (Breztri Aerosphere) lorazepam 0.5 mg tablet 0.5 mg PO DAILY PRN Anxiety 02/05/25 04/20/25 04/07/25 History roflumilast 500 mcg tablet 500 mcg PO DAILY@59902/05/25 04/20/25 04/20/25 History (Daliresp) valsartan 40 mg tablet 40 mg PO DAILY@59902/05/25 04/20/25 04/20/25 History verapamil 120 mg tablet 120 mg PO BID@06,2000 02/05/25 04/20/25 04/20/25 History omeprazole 20 mg capsule,delayed 20 mg PO DAILY@0600 03/01/25 04/20/25 04/20/25 History release prednisone 5 mg tablet 5 mg PO Q48H 03/01/25 04/20/25 04/19/25 History acetaminophen 650 mg 1,300 mg PO Q8H PRN Pain 03/13/25 04/20/25 04/07/25 History tablet,extended release magnesium oxide 400 mg PO DAILY@0600 03/13/25 04/20/25 04/20/25 History melatonin 3 mg tablet 3 mg PO BEDTIME PRN Insomnia 04/08/25 04/20/25 Unknown History oxycodone 5 mg tablet 5 mg PO Q6H PRN Severe Pain (Scale 04/08/25 04/20/25 04/07/25 History Score 7-10) furosemide 20 mg tablet 20 mg PO DAILY@0600 04/20/25 04/20/25 04/20/25 History Physical Exam Vital Signs and Narrative: Vital Signs: Last Vital Signs Temp 97.9 F 04/20/25 18:51 Pulse 81 04/20/25 18:54 Resp 18 04/20/25 18:54 BP 117/53 L 04/20/25 18:51 Pulse Ox 94 04/20/25 18:51 O2 Del Method Nasal Cannula 04/20/25 18:51 O2 Flow Rate 3 04/20/25 18:49 Oxygen Flow Rate 3 04/20/25 18:51 BMI result Body Mass Index 43.5 Gen: Appears be in no acute distress HEENT: NCAT, Moist mucosa. Pulmonary: Coarse breath sounds CVS: Normal S1-S2 Abdomen: BS+, Soft, Nontender Extremities: Warm well perfused Neuro: Alert and awake. Results Labs 04/21/25 03:56 04/21/25 03:56 Labs: Laboratory Results - last 24 hr 04/20/25 19:22 MCV 97.7 MCH 29.9 MCHC 30.6 L RDW 15.4 Plt Count 423 H MPV 9.2 L Immature Gran % (Auto) 1.6 H Neut % (Auto) 75.6 H Lymph % (Auto) 12.8 L [place] % (Auto) 8.0 Eos % (Auto) 1.4 Baso % (Auto) 0.6 Lymph # (Auto) 1.3 [place] # (Auto) 0.8 Eos # (Auto) 0.1 Baso # (Auto) 0.1 Abs Immat Gran (auto) 0.16 H Absolute Neuts (auto) 7.8 Absolute Nucleated RBC 0.060 H Nucleated RBC % (auto) 0.6 H Anion Gap 12 Estim Creat Clear Calc 102.9 Estimated GFR > 60 Random Glucose 114 Lactic Acid 1.5 Calcium 9.5 Troponin I High Sens 7.1 NT-Pro-B Natriuret Pep 123.4 Assessment and Plan (1) COPD exacerbation: Status: Acute Plan 60-year-old female with a past medical history of HTN, HLD, asthma/COPD, JUANITO, trigeminal neuralgia, aortic stenosis, HFpEF, tobacco dependence, pulmonary nodules, obesity, CVA; discharged recently after being treated for COPD exacerbation on 04/17/2025; presented to the hospital today with a chief complaint of shortness of breath. Noted to be in acute COPD exacerbation. Recurrent COPD exacerbation: Patient just discharge from the hospital on 04/17/25 after being treated for COPD exacerbation. Currently not in respiratory distress Continue home supplemental oxygen Nebulizations standing and p.r.n. Solu-Medrol Azithromycin Pulmonology consult for further input Chronic medical conditions: Stable #Hypertension: Blood pressure on the normal side. Hold home losartan, verapamil for now. #CVA: Continue home aspirin, statin #Mood disorder: Continue home Abilify, duloxetine #Chronic pain syndrome: Continue Dilaudid as needed #HFpEF: Continue home Lasix #Trigeminal neurology: Patient on oxcarbazepine DVT prophylaxis: Lovenox Code status: Full code Quality Stroke Does the patient have a stroke diagnosis?: No VTE Prior VTE?: No VTE Risk Level:: Medical - moderate - high VTE Device Contraindication: Treatment Not Indicated VTE Drug Contraindication: N/A - Med Ordered
[2025-04-20 20:39] LABS: Venous Blood Gas Refer to POC result
[2025-04-20 20:39] LABS: VBG HCO3 37 mmol/L (22-26); VBG O2 % Saturation 98.0 %
--- NOTE | 2025-04-20 20:48 | PHA.MEDREC ---
Addendum entered by Loida Burnett RPh 04/20/25 20:56: Reviewed by [facility] Original Note: Pharmacy Consult ? Medication Reconciliation Pharmacy has completed the medication reconciliation. Patient was just discharged 04/17/25. Patient states the only changes are, she completed her antibiotics, Patient pcp add Lasix 20 mg daily. Patient confirmed Prednisone 5 mg she takes on even days. Patient had all her night time medications today prior to visit.
[2025-04-20 20:55] LABS: COVID-19 Test Negative (Negative); IDNOW Serial# 55D5AD1C; IDNOW Serial# 58CA691E; Influenza B2 Negative (Negative)
[2025-04-20 21:56] LABS: Appearance Urine Clear; Glucose Urine UA Negative (Negative); PH 6.0 (5.0-9.0); Specific Gravity - Urine 1.010 (1.005-1.025)
[2025-04-20 22:01] VITALS: BP 113/66; PULSE 79; RESP 16; O2SAT 95
--- NOTE | 2025-04-20 22:11 | PC.NURSE ---
1 assist to bedside commode. UA collected
--- NOTE | 2025-04-20 22:37 | PC.NURSE ---
pt requesting breathing treatment. RT aware
[2025-04-20] MEDS: Albuterol/Iprat 2.5/0.5MG 3 ML AMPUL.NEB INHALE (22:47)
[2025-04-20 22:48] VITALS: PULSE 79; RESP 16; O2SAT 94
--- NOTE | 2025-04-20 23:28 | PC.NURSE ---
pt requesting CPAP at this time for sleep. increased WOB after eating, unable to speak in full sentences
[2025-04-20 23:37] VITALS: PULSE 88; RESP 22; O2SAT 97
[2025-04-21] VITALS (12 sets, daily range): BP systolic 110–165; BP diastolic 59–77; PULSE 74–94; RESP 18–23; TEMP 36.4–37.3; O2SAT 93–100; BMI 40.1
--- NOTE | 2025-04-21 00:27 | PC.NURSE ---
assist pt to commode and adjust Bipap mask
--- NOTE | 2025-04-21 04:00 | PC.NURSE ---
pt back on 2L NC per request
[2025-04-21 04:12] LABS: Hematocrit 35.0 % (37.0-47.0); Hemoglobin 10.8 g/dl (12.0-16.0); Imm Gran Abs Auto 0.14 X10*3/uL (0.00-0.03); Imm Gran Pct Auto 1.4 % (0.0-0.4); Lymphocytes Absolute Auto 0.4 X10*3/uL (1.2-4.9); MANUAL DIFF FLAG SCAN; Mean Corpuscular HGB Conc 30.9 g/dl (31.0-35.0); Mean Corpuscular Hemoglobin 30.0 pg (27.0-33.0); Mean Corpuscular Volume 97.2 fL (80.0-98.0); NRBC Abs Auto 0.040 X10*3/uL (0.0-0.012); NRBC Pct Auto 0.4 /100WBC (0.0-0.2); Platelet Count 435 X10*3/uL (160-400); Red Blood Count 3.60 X10*6/uL (4.20-5.50); SCAN SMEAR FLAG 1; White Blood Count 10.0 X10*3/uL (4.8-10.8)
[2025-04-21 04:28] LABS: Alanine Aminotransferase 16 U/L (0-31); Albumin Level 4.1 g/dL (3.5-5.0); Alkaline Phosphatase 67 U/L (39-117); Anion Gap 14 (12-20); Aspartate Amino Transferase 20 U/L (5-31); Blood Urea Nitrogen 8 mg/dL (9-16); Calcium 9.1 mg/dL (8.4-10.2); Carbon Dioxide 29 mmol/L (22-29); Chloride 102 mmol/L (96-108); Creatinine Clr Calc Pharmacy 99.8; Estimated Glomerular Filt Rate > 60; Potassium 4.6 mmol/L (3.3-5.1); Sodium 140 mmol/L (135-145); Total Protein 7.0 g/dL (6.5-8.0)
--- NOTE | 2025-04-21 04:41 | PC.NURSE ---
pt requesting breathing tx, RT at bedside
[2025-04-21] MEDS: Albuterol/Iprat 2.5/0.5MG 3 ML AMPUL.NEB INHALE ×4 (04:42→23:10)
--- NOTE | 2025-04-21 08:20 | MHC.EDTECH ---
performed ADL'S on patient gave patient a full bed bath put patient on a pure wick patient out put in urine was 800 nurse aware.
[2025-04-21] MEDS: 0.9 % Sodium Chloride Flush 3 ML SYRINGE IVFLUSH ×2 (09:13→20:20)
--- NOTE | 2025-04-21 10:46 | P.PNIM_ITS ---
Subjective Subjective Date of Service: 04/21/25 Review of Systems Follow up shortness breath, heart failure exacerbation Still with some mild shortness of breath feeling better Physical Exam 2 Exam: Exam: Appearing in no acute distress lung sounds are clear to auscultation heart regular rate rhythm, clear S1, S2 positive bowel sounds, abdomen is soft, nontender neuro patient is alert x3, no focal deficits Vital Signs: Vital Signs: Last Vital Signs Temp 97.9 F 04/21/25 08:51 Pulse 94 04/21/25 08:51 Resp 20 04/21/25 08:51 BP 118/59 L 04/21/25 08:51 Pulse Ox 97 04/21/25 08:51 O2 Del Method Room Air 04/21/25 08:51 O2 Flow Rate 3 04/20/25 22:01 Oxygen Flow Rate 3 04/20/25 18:51 BMI result Body Mass Index 43.5 Objective Data Active Medications Acetaminophen (Acetaminophen 325 Mg Tablet) 650 mg PO Q6H PRN PRN Reason: Pain, Mild 1-3,fever,headache Acetaminophen/Butalbital/Caffeine (Butalb/Acetamin/Caff 50/325/40 Tablet) 1 tab PO DAILY MRX1 PRN PRN Reason: Migraine Headache Albuterol/Ipratropium (Albuterol/Iprat 2.5/0.5mg 3 Ml Ampul.Neb) 3 ml INHALE Q4H PRN PRN Reason: Shortness of Breath/Wheezing Albuterol/Ipratropium (Albuterol/Iprat 2.5/0.5mg 3 Ml Ampul.Neb) 3 ml INHALE RQ6H [facility] Last Admin: 04/21/25 04:42 Dose: 3 ml Documented By: THIERRY Aripiprazole (Aripiprazole 5 Mg Tablet) 5 mg PO DAILY@0600 [facility] Last Admin: 04/21/25 05:45 Dose: 5 mg Documented By: ANGEL Aspirin (Aspirin Enteric Coated 81 Mg Tablet.) 81 mg PO DAILY@1999 [facility] Atorvastatin Calcium (Atorvastatin Calcium 80 Mg Tablet) 80 mg PO DAILY@1999 [facility] Azithromycin (Azithromycin 500 Mg Tablet) 500 mg PO Q24H [facility] Baclofen (Baclofen 20 Mg Tablet) 20 mg PO TID@0600,1200,1999 [facility] Last Admin: 04/21/25 06:38 Dose: 20 mg Documented By: ANGEL Calcium Carbonate (Calcium Carbonate 750 Mg Tab.Chew) 750 mg PO Q4H PRN PRN Reason: Heartburn Duloxetine HCl (Duloxetine Hcl 60 Mg Capsule.) 60 mg PO BID@ [facility] Last Admin: 04/21/25 05:45 Dose: 60 mg Documented By: ANGEL Enoxaparin Sodium (Enoxaparin Sodium 40 Mg/0.4 Ml Syringe) 40 mg SUBCUT Q24H [facility] Last Admin: 04/20/25 21:17 Dose: 40 mg Documented By: ANGEL Furosemide (Furosemide 40 Mg/4 Ml Vial) 40 mg IVPUSH BID@0900,1800 [facility]; Protocol Gabapentin (Gabapentin 400 Mg Capsule) 1,200 mg PO TID@599,1199,1999 [facility] Last Admin: 04/21/25 06:38 Dose: 1,200 mg Documented By: ANGEL Hydromorphone HCl (Hydromorphone Hcl 2 Mg Tablet) 2 mg PO Q6H PRN PRN Reason: Breakthrough Pain Lorazepam (Lorazepam 0.5 Mg Tablet) 0.5 mg PO BEDTIME@1999 [facility] Last Admin: 04/20/25 23:25 Dose: 0.5 mg Documented By: ANGEL Lorazepam (Lorazepam 0.5 Mg Tablet) 0.5 mg PO DAILY PRN PRN Reason: Anxiety Magnesium Hydroxide (Milk Of Magnesia 30 Ml Oral.Susp) 30 ml PO DAILY PRN PRN Reason: Constipation Magnesium Oxide (Magnesium Oxide 400 Mg Tablet) 400 mg PO DAILY@599 [facility] Melatonin (Melatonin 3 Mg Tablet) 6 mg PO BEDTIME PRN PRN Reason: Insomnia Methylprednisolone Sodium Succinate (Methylprednisolone Sod Succ 40 Mg/Ml Vial) 40 mg IVPUSH Q6H [facility] Last Admin: 04/21/25 09:13 Dose: 40 mg Documented By: HOTFABIANA Oxcarbazepine (Oxcarbazepine 300 Mg Tablet) 300 mg PO BID@ [facility] Last Admin: 04/21/25 05:44 Dose: 300 mg Documented By: ANGEL Prazosin HCl (Prazosin Hcl 1 Mg Capsule) 2 mg PO DAILY@1999 [facility]; Protocol Roflumilast (Roflumilast 500 Mcg Tablet) 500 mcg PO DAILY@599 [facility] Sodium Chloride (0.9 % Sodium Chloride Flush 3 Ml Syringe) 3 ml IVFLUSH QSHIFT [facility] Last Admin: 04/21/25 09:13 Dose: 3 ml Documented By: STEPHANIE Labs 04/21/25 03:56 04/21/25 03:56 Labs: Laboratory Results - last 24 hr 04/20/25 04/20/25 04/20/25 19:22 20:24 20:35 MCV 97.7 MCH 29.9 MCHC 30.6 L RDW 15.4 Plt Count 423 H MPV 9.2 L Immature Gran % (Auto) 1.6 H Neut % (Auto) 75.6 H Lymph % (Auto) 12.8 L [place] % (Auto) 8.0 Eos % (Auto) 1.4 Baso % (Auto) 0.6 Lymph # (Auto) 1.3 [place] # (Auto) 0.8 Eos # (Auto) 0.1 Baso # (Auto) 0.1 Abs Immat Gran (auto) 0.16 H Absolute Neuts (auto) 7.8 Absolute Nucleated RBC 0.060 H Nucleated RBC % (auto) 0.6 H Smear Tech's Comments VBG pH 7.40 VBG pCO2 59 VBG pO2 81 VBG HCO3 37 H VBG O2 Saturation 98.0 VBG Base Excess 10.9 Anion Gap 12 Estim Creat Clear Calc 102.9 Estimated GFR > 60 Random Glucose 114 Lactic Acid 1.5 Calcium 9.5 Total Bilirubin AST ALT Alkaline Phosphatase Troponin I High Sens 7.1 NT-Pro-B Natriuret Pep 123.4 Total Protein Albumin Urine Color Urine Appearance Urine pH Ur Specific [place] Urine Protein Urine Glucose (UA) Urine Ketones Urine Blood Urine Nitrite Ur Leukocyte Esterase Urine RBC Urine WBC Ur Squamous Epith Cells Urine Bacteria Hyaline Casts COVID-19 (SONAL) Negative COVID-19 Clin Com See Note Influenza Type A (DERREK) Negative Influenza Type B (DERREK) Negative Influenza A & B Note See Note 04/20/25 04/21/25 21:26 03:56 MCV 97.2 MCH 30.0 MCHC 30.9 L RDW 15.1 Plt Count 435 H MPV 9.2 L Immature Gran % (Auto) 1.4 H Neut % (Auto) 93.1 H Lymph % (Auto) 4.3 L [place] % (Auto) 0.9 L Eos % (Auto) 0.0 Baso % (Auto) 0.3 Lymph # (Auto) 0.4 L [place] # (Auto) 0.1 Eos # (Auto) 0.0 Baso # (Auto) 0.0 Abs Immat Gran (auto) 0.14 H Absolute Neuts (auto) 9.3 H Absolute Nucleated RBC 0.040 H Nucleated RBC % (auto) 0.4 H Smear Tech's Comments VERIFIED VBG pH VBG pCO2 VBG pO2 VBG HCO3 VBG O2 Saturation VBG Base Excess Anion Gap 14 Estim Creat Clear Calc 99.8 Estimated GFR > 60 Random Glucose 153 H Lactic Acid Calcium 9.1 Total Bilirubin 0.2 AST 20 ALT 16 Alkaline Phosphatase 67 Troponin I High Sens NT-Pro-B Natriuret Pep Total Protein 7.0 Albumin 4.1 Urine Color Yellow Urine Appearance Clear Urine pH 6.0 Ur Specific [place] 1.010 Urine Protein Negative Urine Glucose (UA) Negative Urine Ketones Negative Urine Blood Negative Urine Nitrite Negative Ur Leukocyte Esterase Negative Urine RBC 0-2 Urine WBC 0-5 Ur Squamous Epith Cells 0-2 Urine Bacteria None Seen Hyaline Casts 0-2 COVID-19 (SONAL) COVID-19 Clin Com Influenza Type A (DERREK) Influenza Type B (DERREK) Influenza A & B Note Assessment and Plan (1) Diastolic heart failure: Status: Acute Plan 60-year-old female with a past medical history of HTN, HLD, asthma/COPD, JUANITO, trigeminal neuralgia, aortic stenosis, HFpEF, tobacco dependence, pulmonary nodules, obesity, CVA; discharged recently after being treated for COPD exacerbation on 04/17/2025; presented to the hospital today with a chief complaint of shortness of breath. Noted to be in acute COPD exacerbation. HFpEF Patient with increased shortness fall Bilateral lower extremity pitting edema and weight gain IV Lasix 40 mg b.i.d. Daily weight Monitor intake and output closely Continue home Lasix Recurrent COPD exacerbation Patient just discharge from the hospital on 04/17/25 after being treated for COPD exacerbation. Currently not in respiratory distress Continue home supplemental oxygen Nebulizations standing and p.r.n. Pulmonology> continue diuresis as patient appears to be more in heart failure and pulmonary exacerbation Stable Hypertension Blood pressure on the normal side. Hold home losartan, verapamil for now. CVA Continue home aspirin, statin Mood disorder Continue home Abilify, duloxetine Chronic pain syndrome Continue Dilaudid as needed HFpEF Continue home Lasix Trigeminal neurology Patient on oxcarbazepine DVT prophylaxis: Lovenox Code status: Full code Quality Stroke Does the patient have a stroke diagnosis?: No VTE Prior VTE?: No VTE Risk Level:: Medical - moderate - high VTE Device Contraindication: Treatment Not Indicated VTE Drug Contraindication: N/A - Med Ordered
--- NOTE | 2025-04-21 10:52 | P.CONPL_ITS ---
History of Present Illness History of Present Illness Consult date: 04/21/25 Chief complaint: Dyspnea Narrative: 60-year-old lady with underlying COPD on 2 L of supplemental oxygen, JUANITO, followed by Dr. Henriquez, admitted on 04/20/2025 with worsening dyspnea, orthopnea, lower extremity edema. Patient empirically treated for COPD exacerbation. Review of Systems 2 Constitutional: Constitutional: Denies daytime sleepiness, Denies excessive sweating, Denies fatigue, Denies fever(s), Denies lethargy, Denies malaise, Denies night sweats, Denies snoring and Denies weight loss Eyes: Eyes: Denies blurry vision and Denies itchy eyes ENT: Denies nasal congestion, Denies post nasal drip, Denies sinus pain, Denies sinus pressure and Denies other ( Thrush) Cardiovascular: Cardiovascular: Denies chest pain, Reports pedal edema, Denies dyspnea, Reports dyspnea on exertion, Reports orthopnea and Denies paroxysmal nocturnal dyspnea Respiratory: Respiratory: Denies cough, Denies hemoptysis, Denies excessive phlegm production, Denies dyspnea, Reports dyspnea on exertion, Denies snoring and Denies wheezing Gastrointestinal: Gastrointestinal: Denies abdominal pain and Denies heartburn Musculoskeletal: Musculoskeletal: Denies myalgias, Denies arthralgias and Denies joint swelling Integumentary/Breasts: Skin/Breast: Denies rash Neurologic: Denies memory loss and Denies seizure-like activity Psychiatric: Psychiatric: Denies abnormal sleep pattern, Denies anxiety and Denies memory loss Endocrine: Endocrine: Denies excessive sweating, Denies fatigue and Denies heat intolerance Hematologic/Lymphatic: Hematologic/Lymphatic: Denies easy bruising Allergic/Immunologic: Allergic/Immunologic: Denies itchy eyes, Denies seasonal rhinorrhea and Denies wheezing PMFSH Past Medical History Medical History Chronic lung disease Morbid obesity Pulmonary nodules Diastolic heart failure Chronic lung disease Hypoxia Panic disorder Hypertension Chronic hypercapnic respiratory failure Aortic stenosis Asthma Hypogammaglobulinemia Smoker JUANITO (obstructive sleep apnea) Elevated troponin COPD (chronic obstructive pulmonary disease) Trigeminal neuralgia Mixed hyperlipidemia Peripheral neuropathy Tobacco use disorder Mood disorder Surgical History Surgical History History of esophagogastroduodenoscopy (EGD) History of colonoscopy History of lumbar discectomy History of tubal ligation History of excision of mass History of shoulder surgery Social History Social History Household Members: Spouse Household Members Other:: dog Housing: Condominium Do you presently have visiting nurse or other home services: Yes ([facility]) Alcohol intake: current Alcohol intake frequency: holidays/special occasions only Alcohol type: hard liquor Comment: pt refusing bed alarm Patient Tobacco Use Status: Former Tobacco user Tobacco use type: Cigarette Cigarette Packs Per Day: 4 Cigarettes Per Day: 80.0 Years Smoked: 40 Smoked in Last 30 Days: No e-Cigarette/Vaping Use: Never Used Second Hand Smoke Exposure: No Use of substances other than those prescribed or required for medical reasons: No Substance Use Type: Marijuana Advance Directives: Yes Advance Directives on File: Yes Advance Directives Date on File: 03/09/23 Do you have a plan to hurt others: No Plan Nutrition Risks: Dental problems, Difficulty chewing and Difficulty swallowing Patient : No service: No Meds Allergies Allergy/AdvReac Type Severity Reaction Status Date / Time Iodinated Contrast Media (IV Allergy Intermediate HIVES Verified 04/20/25 18:53 CONTRAST) latex (LATEX) Allergy Unknown RASH Verified 04/20/25 18:53 adhesive tape Allergy Rash Verified 04/20/25 18:53 morphine (MORPHINE) AdvReac Unknown VOMITING Verified 04/20/25 18:53 Active Medications: Current Medications Acetaminophen (Acetaminophen 325 Mg Tablet) 650 mg PO Q6H PRN PRN Reason: Pain, Mild 1-3,fever,headache Acetaminophen/Butalbital/Caffeine (Butalb/Acetamin/Caff 50/325/40 Tablet) 1 tab PO DAILY MRX1 PRN PRN Reason: Migraine Headache Albuterol/Ipratropium (Albuterol/Iprat 2.5/0.5mg 3 Ml Ampul.Neb) 3 ml INHALE Q4H PRN PRN Reason: Shortness of Breath/Wheezing Albuterol/Ipratropium (Albuterol/Iprat 2.5/0.5mg 3 Ml Ampul.Neb) 3 ml INHALE RQ6H [facility] Last Admin: 04/21/25 04:42 Dose: 3 ml Aripiprazole (Aripiprazole 5 Mg Tablet) 5 mg PO DAILY@599 [facility] Last Admin: 04/21/25 05:45 Dose: 5 mg Aspirin (Aspirin Enteric Coated 81 Mg Tablet.) 81 mg PO DAILY@1999 [facility] Atorvastatin Calcium (Atorvastatin Calcium 80 Mg Tablet) 80 mg PO DAILY@1999 [facility] Baclofen (Baclofen 20 Mg Tablet) 20 mg PO TID@599, [facility] Last Admin: 04/21/25 06:38 Dose: 20 mg Calcium Carbonate (Calcium Carbonate 750 Mg Tab.Chew) 750 mg PO Q4H PRN PRN Reason: Heartburn Duloxetine HCl (Duloxetine Hcl 60 Mg Capsule.) 60 mg PO BID@ [facility] Last Admin: 04/21/25 05:45 Dose: 60 mg Enoxaparin Sodium (Enoxaparin Sodium 40 Mg/0.4 Ml Syringe) 40 mg SUBCUT Q24H [facility] Last Admin: 04/20/25 21:17 Dose: 40 mg Furosemide (Furosemide 40 Mg/4 Ml Vial) 40 mg IVPUSH BID@0900,1800 [facility]; Protocol Gabapentin (Gabapentin 400 Mg Capsule) 1,200 mg PO TID@599,1199,1999 [facility] Last Admin: 04/21/25 06:38 Dose: 1,200 mg Hydromorphone HCl (Hydromorphone Hcl 2 Mg Tablet) 2 mg PO Q6H PRN PRN Reason: Breakthrough Pain Lorazepam (Lorazepam 0.5 Mg Tablet) 0.5 mg PO BEDTIME@1999 [facility] Last Admin: 04/20/25 23:25 Dose: 0.5 mg Lorazepam (Lorazepam 0.5 Mg Tablet) 0.5 mg PO DAILY PRN PRN Reason: Anxiety Magnesium Hydroxide (Milk Of Magnesia 30 Ml Oral.Susp) 30 ml PO DAILY PRN PRN Reason: Constipation Magnesium Oxide (Magnesium Oxide 400 Mg Tablet) 400 mg PO DAILY@599 [facility] Melatonin (Melatonin 3 Mg Tablet) 6 mg PO BEDTIME PRN PRN Reason: Insomnia Oxcarbazepine (Oxcarbazepine 300 Mg Tablet) 300 mg PO BID@ [facility] Last Admin: 04/21/25 05:44 Dose: 300 mg Prazosin HCl (Prazosin Hcl 1 Mg Capsule) 2 mg PO DAILY@1999 [facility]; Protocol Roflumilast (Roflumilast 500 Mcg Tablet) 500 mcg PO DAILY@599 [facility] Sodium Chloride (0.9 % Sodium Chloride Flush 3 Ml Syringe) 3 ml IVFLUSH QSHIFT [facility] Last Admin: 04/21/25 09:13 Dose: 3 ml Home Medications ?Medication ?Instructions ?Recorded ?Confirmed ?Last Taken ?Type atorvastatin 80 mg tablet 80 mg PO DAILY@199903/04/23 04/20/25 04/20/25 History kygcqrebbl-kyczhswakyfwk-ocoltffc 1 tab PO DAILY MRX1 PRN Migraine 03/04/23 04/20/25 04/07/25 History 50 mg-325 mg-40 mg tablet Headache duloxetine 60 mg capsule,delayed 60 mg PO BID@0600,200 0 03/04/23 04/20/25 04/20/25 History release gabapentin 300 mg capsule 1,200 mg PO TID@0600,1200,20 00 03/04/23 04/20/25 04/20/25 History hyoscyamine sulfate 0.125 mg tablet 0.25 mg PO Q6H PRN Abdominal 03/04/23 04/20/25 04/07/25 History Discomfort Oxygen Home Use 04/16/23 02/26/25 10/28/24 History prazosin 2 mg capsule 2 mg PO DAILY@199904/16/23 04/20/25 04/20/25 History albuterol sulfate 90 mcg/actuation 2 puff inhalation Q 4H PRN 01/31/24 04/20/25 04/12/25 History aerosol inhaler Shortness Of Breath Or Wheez ing aspirin 81 mg tablet,delayed 81 mg PO DAILY@05/2204/20/25 04/20/25 History release calcium 600 mg (as 1 tab PO DAILY@199906/20/24 04/20/25 04/20/25 History carbonate)-vitamin D3 5 mcg (200 unit) tablet baclofen 20 mg tablet 20 mg PO TID@0600,1200,199910/29/24 04/20/25 04/20/25 History aripiprazole 5 mg tablet (Abilify) 5 mg PO DAILY@0600 12/01/24 04/20/25 04/20/25 History oxcarbazepine 300 mg tablet 300 mg PO BID@0600,199904/20/25 04/20/25 History lorazepam 0.5 mg tablet 0.5 mg PO BEDTIME@1999 [facility] 01/04/25 04/20/25 04/20/25 History Anxiety polyethylene glycol 3350 17 17 g PO DAILY PRN Constipa tion 01/04/25 04/20/25 04/07/25 History gram/dose oral powder (Miralax) budesonide 160 mcg-glycopyr 9 2 inh inhalation BID@060 0,1800 02/05/25 04/20/25 04/20/25 History mcg-formot 4.8 mcg/actuation HFA inhaler (Breztri Aerosphere) lorazepam 0.5 mg tablet 0.5 mg PO DAILY PRN Anxiety 02/05/25 04/20/25 04/07/25 History roflumilast 500 mcg tablet 500 mcg PO DAILY@0602/0504/20/25 04/20/25 History (Zayiresp) valsartan 40 mg tablet 40 mg PO DAILY@0600 02/05/25 04/20/25 04/20/25 History verapamil 120 mg tablet 120 mg PO BID@599,01/1304/20/25 04/20/25 History omeprazole 20 mg capsule,delayed 20 mg PO DAILY@0600 0 03/01/25 04/20/25 04/20/25 History release prednisone 5 mg tablet 5 mg PO Q48H 03/01/2504/19/25 History acetaminophen 650 mg 1,300 mg PO Q8H PRN Pain 04/20/25 04/07/25 History tablet,extended release magnesium oxide 400 mg PO DAILY@06 5 04/20/25 04/20/25 History melatonin 3 mg tablet 3 mg PO BEDTIME PRN Insomnia 04/08/25 04/20/25 Unknown History oxycodone 5 mg tablet 5 mg PO Q6H PRN Severe Pain (Scale 04/08/25 04/20/25 04/07/25 History Score 7-10) furosemide 20 mg tablet 20 mg PO DAILY@0600 04/20/25 04/20/25 04/20/25 History Physical Exam 2 Vital Signs: Vital Signs: Last Vital Signs Temp 97.9 F 04/21/25 08:51 Pulse 94 04/21/25 08:51 Resp 20 04/21/25 08:51 BP 118/59 L 04/21/25 08:51 Pulse Ox 97 04/21/25 08:51 O2 Del Method Room Air 04/21/25 08:51 O2 Flow Rate 3 04/20/25 22:01 Oxygen Flow Rate 3 04/20/25 18:51 BMI result Body Mass Index 43.5 Const: General: no acute distress and alert Nutritional Appearance: obese HEENT: Head: Yes atraumatic Eyes: General: appearance normal, both eyes and all related structures S clerae: sclerae normal EOM: EOMs intact bilaterally Neck: Neck: Yes supple Lymphatic: no lymphadenopathy noted Resp: Effort & Inspection: normal respiratory effort and no use of accessory muscles Auscultation: crackles (Mild bilateral) Cardio: Rate: regular rate Rhythm: regular rhythm Heart sounds: no gallops, no murmurs and no rubs GI: Palpation (GI): Soft to palpation and Other GI palpation findings present ( Nontender) Auscultation: normal bowel sounds Skin: General skin exam: other ( warm) Extrem: General: No clubbing, No cyanosis and Yes edema (2+ bilateral up to mid thigh) Results Laboratory Findings 04/21/25 03:56 04/21/25 03:56 Abnormal lab findings: Abnormal Labs 04/20/25 04/20/25 04/21/25 19:22 20:35 03:56 RBC 3.54 L 3.60 L Hgb 10.6 L 10.8 L Hct 34.6 L 35.0 L MCHC 30.6 L 30.9 L Plt Count 423 H 435 H MPV 9.2 L 9.2 L Immature Gran % (Auto) 1.6 H 1.4 H Neut % (Auto) 75.6 H 93.1 H Lymph % (Auto) 12.8 L 4.3 L [place] % (Auto) 0.9 L Lymph # (Auto) 0.4 L Abs Immat Gran (auto) 0.16 H 0.14 H Absolute Neuts (auto) 9.3 H Absolute Nucleated RBC 0.060 H 0.040 H Nucleated RBC % (auto) 0.6 H 0.4 H VBG HCO3 37 H Carbon Dioxide 32 H BUN 8 L 8 L Random Glucose 153 H Assessment and Plan (1) COPD (chronic obstructive pulmonary disease): Status: Acute (2) Dyspnea on exertion: Status: Acute (3) Orthopnea: Status: Acute (4) Diastolic dysfunction with acute on chronic heart failure: Status: Acute Plan Impression: 60-year-old lady with underlying supplemental oxygen dependent COPD, JUANITO, obesity admitted with worsening dyspnea, orthopnea, and lower extremity edema. At this time appears to be related to exacerbation of underlying chronic diastolic congestive heart failure. Recommendation: Suggest additional IV diuresis. Procedures Date of Service Date of Service: 04/21/25
--- NOTE | 2025-04-21 13:05 | MHC.CM.PN ---
Pt. lives with her , she has home care services from [facility], she has home O2, transport home will be spouse, DCP: home, resume services. CM to follow for DC needs.
--- NOTE | 2025-04-21 14:06 | HO.NURTONUR ---
Pt comes from home, she is very well known to us for COPD exacerbations and CHR. Pt is chronically on O2 at home 1-2L. Pt here today for worsening sob x past couple of days. Pt is very deconditioned and any movement she will become sob and decr O2 sats.
--- NOTE | 2025-04-21 14:25 | MHC.EDTECH ---
i changed patient before going up stairs to the floor patient out put of urine in the canister was 800 nurse aware
[2025-04-21] MEDS: Furosemide 40 MG/4 ML VIAL IVPUSH (16:51)
[2025-04-21] MEDS: Aspirin Enteric Coated 81 MG TABLET.DR PO (20:19)
[2025-04-22] VITALS (13 sets, daily range): BP systolic 122–186; BP diastolic 58–85; PULSE 71–95; RESP 18–22; TEMP 36.1–36.9; O2SAT 92–97
[2025-04-22] MEDS: Albuterol/Iprat 2.5/0.5MG 3 ML AMPUL.NEB INHALE ×4 (05:13→23:24)
[2025-04-22] MEDS: Furosemide 40 MG/4 ML VIAL IVPUSH ×2 (08:41→16:01)
--- NOTE | 2025-04-22 11:19 | HO.PM.IMPN ---
Subjective Subjective Date of Service: 04/22/25 Review of Systems Follow up shortness breath, heart failure exacerbation Still with some mild shortness of breath feeling better Physical Exam Exam: Exam: Appearing in no acute distress lung sounds are clear to auscultation heart regular rate rhythm, clear S1, S2 positive bowel sounds, abdomen is soft, nontender neuro patient is alert x3, no focal deficits Vital Signs: Vital Signs: Last Vital Signs Temp 97.0 F 04/22/25 07:41 Pulse 71 04/22/25 07:41 Resp 18 04/22/25 07:41 BP 168/72 H 04/22/25 08:41 Pulse Ox 92 04/22/25 07:41 O2 Del Method Nasal Cannula 04/22/25 07:41 O2 Flow Rate 2 04/22/25 07:41 Oxygen Flow Rate 3 04/20/25 18:51 BMI result Body Mass Index 40.1 Objective Data Active Medications Acetaminophen (Acetaminophen 325 Mg Tablet) 650 mg PO Q6H PRN PRN Reason: Pain, Mild 1-3,fever,headache Last Admin: 04/22/25 04:19 Dose: 650 mg Documented By: ADARSH Acetaminophen/Butalbital/Caffeine (Butalb/Acetamin/Caff 50/325/40 Tablet) 1 tab PO DAILY MRX1 PRN PRN Reason: Migraine Headache Albuterol/Ipratropium (Albuterol/Iprat 2.5/0.5mg 3 Ml Ampul.Neb) 3 ml INHALE Q4H PRN PRN Reason: Shortness of Breath/Wheezing Albuterol/Ipratropium (Albuterol/Iprat 2.5/0.5mg 3 Ml Ampul.Neb) 3 ml INHALE RQ6H [facility] Last Admin: 04/22/25 11:16 Dose: 3 ml Documented By: MIRTHA Aripiprazole (Aripiprazole 5 Mg Tablet) 5 mg PO DAILY@0600 [facility] Last Admin: 04/22/25 05:26 Dose: 5 mg Documented By: JESSICA Aspirin (Aspirin Enteric Coated 81 Mg Tablet.) 81 mg PO DAILY@1999 [facility] Last Admin: 04/21/25 20:19 Dose: 81 mg Documented By: JESSICA Atorvastatin Calcium (Atorvastatin Calcium 80 Mg Tablet) 80 mg PO DAILY@1999 [facility] Last Admin: 04/21/25 20:20 Dose: 80 mg Documented By: JESSICA Baclofen (Baclofen 20 Mg Tablet) 20 mg PO TID@0600, [facility] Last Admin: 04/22/25 05:26 Dose: 20 mg Documented By: JESSICA Calcium Carbonate (Calcium Carbonate 750 Mg Tab.Chew) 750 mg PO Q4H PRN PRN Reason: Heartburn Last Admin: 04/21/25 20:38 Dose: 750 mg Documented By: JESSICA Duloxetine HCl (Duloxetine Hcl 60 Mg Capsule.Dr) 60 mg PO BID@ [facility] Last Admin: 04/22/25 05:26 Dose: 60 mg Documented By: JESSICA Enoxaparin Sodium (Enoxaparin Sodium 40 Mg/0.4 Ml Syringe) 40 mg SUBCUT Q24H [facility] Last Admin: 04/21/25 20:20 Dose: 40 mg Documented By: JESSICA Furosemide (Furosemide 40 Mg/4 Ml Vial) 40 mg IVPUSH BID@0900,1800 [facility]; Protocol Last Admin: 04/22/25 08:41 Dose: 40 mg Documented By: SHAHZAD Gabapentin (Gabapentin 400 Mg Capsule) 1,200 mg PO TID@06,1199,1999 [facility] Last Admin: 04/22/25 05:26 Dose: 1,200 mg Documented By: JESSICA Hydromorphone HCl (Hydromorphone Hcl 2 Mg Tablet) 2 mg PO Q6H PRN PRN Reason: Breakthrough Pain Last Admin: 04/22/25 05:26 Dose: 2 mg Documented By: JESSICA Lorazepam (Lorazepam 0.5 Mg Tablet) 0.5 mg PO BEDTIME@1999 [facility] Last Admin: 04/21/25 20:20 Dose: 0.5 mg Documented By: JESSICA Lorazepam (Lorazepam 0.5 Mg Tablet) 0.5 mg PO DAILY PRN PRN Reason: Anxiety Magnesium Hydroxide (Milk Of Magnesia 30 Ml Oral.Susp) 30 ml PO DAILY PRN PRN Reason: Constipation Magnesium Oxide (Magnesium Oxide 400 Mg Tablet) 400 mg PO DAILY@06 [facility] Last Admin: 04/22/25 05:26 Dose: 400 mg Documented By: JESSICA Melatonin (Melatonin 3 Mg Tablet) 6 mg PO BEDTIME PRN PRN Reason: Insomnia Oxcarbazepine (Oxcarbazepine 300 Mg Tablet) 300 mg PO BID@06,1999 [facility] Last Admin: 04/22/25 05:26 Dose: 300 mg Documented By: JESSICA Prazosin HCl (Prazosin Hcl 1 Mg Capsule) 2 mg PO DAILY@1999 [facility]; Protocol Last Admin: 04/21/25 20:20 Dose: 2 mg Documented By: JESSICA Prednisone (Prednisone 5 Mg Tablet) 5 mg PO Q48H [facility] Last Admin: 04/22/25 08:41 Dose: 5 mg Documented By: SHAHZAD Roflumilast (Roflumilast 500 Mcg Tablet) 500 mcg PO DAILY@06 [facility] Last Admin: 04/22/25 05:26 Dose: 500 mcg Documented By: JESSICA Sodium Chloride (0.9 % Sodium Chloride Flush 3 Ml Syringe) 3 ml IVFLUSH QSHIFT [facility] Last Admin: 04/22/25 08:49 Dose: Not Given Documented By: SHAHZAD Non-Admin Reason: Previously Administered Labs 04/21/25 03:56 04/21/25 03:56 Microbiology Microbiology Results: Microbiology 04/20/25 20:24 Blood Culture - Preliminary Blood - Venous No growth after 24 hours. 04/20/25 19:22 Blood Culture - Preliminary Blood - Venous No growth after 24 hours. Assessment and Plan (1) Diastolic heart failure: Status: Acute Plan 60-year-old female with a past medical history of HTN, HLD, asthma/COPD, JUANITO, trigeminal neuralgia, aortic stenosis, HFpEF, tobacco dependence, pulmonary nodules, obesity, CVA; discharged recently after being treated for COPD exacerbation on 04/17/2025; presented to the hospital today with a chief complaint of shortness of breath. Noted to be in acute COPD exacerbation. HFpEF Patient with increased shortness fall Bilateral lower extremity pitting edema and weight gain IV Lasix 40 mg b.i.d. Daily weight Monitor intake and output closely Recurrent COPD exacerbation Patient just discharge from the hospital on 04/17/25 after being treated for COPD exacerbation. Currently not in respiratory distress Continue home supplemental oxygen Nebulizations standing and p.r.n. Pulmonology> continue diuresis as patient appears to be more in heart failure and pulmonary exacerbation Hypertension losartan, verapamil CVA Continue home aspirin, statin Mood disorder Continue home Abilify, duloxetine Chronic pain syndrome Continue Dilaudid as needed HFpEF Continue home Lasix Trigeminal neurology Patient on oxcarbazepine DVT prophylaxis: Lovenox Code status: Full code PT consult Quality Stroke Does the patient have a stroke diagnosis?: No VTE Prior VTE?: No VTE Risk Level:: Medical - moderate - high VTE Device Contraindication: Treatment Not Indicated VTE Drug Contraindication: N/A - Med Ordered
[2025-04-22] MEDS: Chlorhexidine Gluc Oral Rinse 15 ML MOUTHWASH BUCCAL ×2 (15:54→20:31)
[2025-04-22] MEDS: Benzocaine 20 % Oral Gel 9 GM TUBE 1 APPL MUCOUS MEM ×2 (17:01→23:52)
[2025-04-22] MEDS: Aspirin Enteric Coated 81 MG TABLET.DR PO (20:30)
[2025-04-23] VITALS (9 sets, daily range): BP systolic 111–138; BP diastolic 56–67; PULSE 72–85; RESP 16–20; TEMP 36.1–37.1; O2SAT 91–96
[2025-04-23] MEDS: Benzocaine 20 % Oral Gel 9 GM TUBE 1 APPL MUCOUS MEM ×2 (05:50→15:58)
[2025-04-23] MEDS: Albuterol/Iprat 2.5/0.5MG 3 ML AMPUL.NEB INHALE ×4 (06:11→23:52)
[2025-04-23 07:04] LABS: NT Pro B Type Natriuretic Pept 92.3 pg/mL (<300)
[2025-04-23 07:09] LABS: Anion Gap 14 (12-20); Blood Urea Nitrogen 18 mg/dL (9-16); Calcium 9.4 mg/dL (8.4-10.2); Carbon Dioxide 39 mmol/L (22-29); Chloride 92 mmol/L (96-108); Creatinine Clr Calc Pharmacy 68.0; Estimated Glomerular Filt Rate > 60; Potassium 3.9 mmol/L (3.3-5.1); Sodium 141 mmol/L (135-145)
[2025-04-23] MEDS: Furosemide 40 MG/4 ML VIAL IVPUSH (08:41)
[2025-04-23] MEDS: 0.9 % Sodium Chloride Flush 3 ML SYRINGE IVFLUSH ×3 (08:43→19:58)
--- NOTE | 2025-04-23 10:43 | MHC.SL.SWA ---
Speech Pathologist Impression: Oropharyngeal swallowing deemed WFL Risk of Aspiration Due to:COPD exacerbation/respiratory compromise Dysphasia Diet Status: Recommend CONITNUE with REGULAR solids, THIN liquids Liquid Consistency and Strategies for Safe Swallow: Liquid Intake Recommendation: Thin Liquid Intake Strategies: Solid Food Consistency: Dietary Recommendations: Regular Additional Modifications to Solid Foods: encourage choosing softer solids to ease dentition pain. Oral Medication Intake: Whole with Liquid Please contact the pharmacy regarding appropriate crushable or liquid drug formulations that are available whenever modified delivery is recommended. Compensatory Strategies and Precautions to be Taken for Safe Swallow: Supervision While Eating and Drinking for Safe Swallow: None Needed Foods to Avoid: Hard, tough to chew solids Swallowing Recommended Treatments: Compensatory strategies Recommendation for Speech: Inpatient Speech Therapy Comment: Patient presents with oropharyngeal swallowing function deemed WFL. Patient endorses swallowing difficulties; reports Globus sensation and some coughing. Patient with timely mastication, adequate cohesion, adequate clearance, and suspected timely swallow. Patient with no s/sx of penetration/aspiration. Patient educated on compensatory strategies/reflux precautions. Patient demonstrating understanding of compensatory strategies. Due to dentition pain, patient has been choosing softer food items- recommend continuing. Recommend CONTINUE on diet of REGULAR solids, THIN liquids with medications whole in liquids/one at a time if difficulties noted with multiple. MOTEL MANAGER to follow-up 1-2x. Frequency/Duration: M-F; follow-up 1-2x Date Range for Service Req: Timeline to reassess: Formula Room Worker Clinican/Clinical Fellow: No Supervisory Statement: I have reviewed and agree with the student/clinical fellow's documentation: No Speech Language Pathologist: Sarah Lucas M.A., [facility]-MOTEL MANAGER
--- NOTE | 2025-04-23 10:57 | HO.PM.IMPN ---
Subjective Subjective Date of Service: 04/23/25 Review of Systems Follow up shortness breath, heart failure exacerbation Still with some mild shortness of breath feeling better Physical Exam Exam: Exam: Appearing in no acute distress lung sounds are clear to auscultation heart regular rate rhythm, clear S1, S2 positive bowel sounds, abdomen is soft, nontender neuro patient is alert x3, no focal deficits Vital Signs: Vital Signs: Last Vital Signs Temp 98.7 F 04/23/25 08:00 Pulse 72 04/23/25 08:00 Resp 16 04/23/25 08:00 BP 111/58 L 04/23/25 08:00 Pulse Ox 94 04/23/25 08:00 O2 Del Method Nasal Cannula 04/23/25 08:00 O2 Flow Rate 2 04/23/25 08:00 Oxygen Flow Rate 3 04/20/25 18:51 BMI result Body Mass Index 40.1 Objective Data Active Medications Acetaminophen (Acetaminophen 325 Mg Tablet) 650 mg PO Q6H PRN PRN Reason: Pain, Mild 1-3,fever,headache Last Admin: 04/22/25 04:19 Dose: 650 mg Documented By: ADARSH Acetaminophen/Butalbital/Caffeine (Butalb/Acetamin/Caff 50/325/40 Tablet) 1 tab PO DAILY MRX1 PRN PRN Reason: Migraine Headache Albuterol/Ipratropium (Albuterol/Iprat 2.5/0.5mg 3 Ml Ampul.Neb) 3 ml INHALE Q4H PRN PRN Reason: Shortness of Breath/Wheezing Albuterol/Ipratropium (Albuterol/Iprat 2.5/0.5mg 3 Ml Ampul.Neb) 3 ml INHALE RQ6H [facility] Last Admin: 04/23/25 06:11 Dose: 3 ml Documented By: CASSIDY Aripiprazole (Aripiprazole 5 Mg Tablet) 5 mg PO DAILY@06 [facility] Last Admin: 04/23/25 05:45 Dose: 5 mg Documented By: ELLE Aspirin (Aspirin Enteric Coated 81 Mg Tablet.) 81 mg PO DAILY@1999 [facility] Last Admin: 04/22/25 20:30 Dose: 81 mg Documented By: ELLE Atorvastatin Calcium (Atorvastatin Calcium 80 Mg Tablet) 80 mg PO DAILY@1999 [facility] Last Admin: 04/22/25 20:30 Dose: 80 mg Documented By: ELLE Baclofen (Baclofen 20 Mg Tablet) 20 mg PO TID@0600,1200,1999 [facility] Last Admin: 04/23/25 05:44 Dose: 20 mg Documented By: ELLE Benzocaine (Benzocaine 20 % Oral Gel 9 Gm Tube) 1 appl MUCOUS MEM QID PRN; Protocol PRN Reason: tooth pain Last Admin: 04/23/25 05:50 Dose: 1 appl Documented By: ELLE Calcium Carbonate (Calcium Carbonate 750 Mg Tab.Chew) 750 mg PO Q4H PRN PRN Reason: Heartburn Last Admin: 04/21/25 20:38 Dose: 750 mg Documented By: JESSICA Chlorhexidine Gluconate (Chlorhexidine Gluc Oral Rinse 15 Ml Mouthwash) 15 ml BUCCAL BID [facility] Last Admin: 04/22/25 20:31 Dose: 15 ml Documented By: ELLE Duloxetine HCl (Duloxetine Hcl 60 Mg Capsule.Dr) 60 mg PO BID@599,1999 [facility] Last Admin: 04/23/25 05:44 Dose: 60 mg Documented By: ELLE Enoxaparin Sodium (Enoxaparin Sodium 40 Mg/0.4 Ml Syringe) 40 mg SUBCUT Q24H [facility] Last Admin: 04/22/25 20:32 Dose: 40 mg Documented By: ELLE Furosemide (Furosemide 40 Mg/4 Ml Vial) 40 mg IVPUSH BID@0900,1800 [facility]; Protocol Last Admin: 04/23/25 08:41 Dose: 40 mg Documented By: PASHA Gabapentin (Gabapentin 400 Mg Capsule) 1,200 mg PO TID@0600,1200,1999 [facility] Last Admin: 04/23/25 05:44 Dose: 1,200 mg Documented By: ELLE Hydromorphone HCl (Hydromorphone Hcl 2 Mg Tablet) 2 mg PO Q6H PRN PRN Reason: Breakthrough Pain Last Admin: 04/23/25 05:45 Dose: 2 mg Documented By: ELLE Ketorolac Tromethamine (Ketorolac Tromethamine 30 Mg/Ml Vial) 30 mg IVPUSH Q6H PRN PRN Reason: tooth pain Last Admin: 04/23/25 08:41 Dose: 30 mg Documented By: PASHA Lorazepam (Lorazepam 0.5 Mg Tablet) 0.5 mg PO BEDTIME@1999 [facility] Last Admin: 04/22/25 20:31 Dose: 0.5 mg Documented By: ELLE Lorazepam (Lorazepam 0.5 Mg Tablet) 0.5 mg PO DAILY PRN PRN Reason: Anxiety Last Admin: 04/23/25 08:42 Dose: 0.5 mg Documented By: PASHA Magnesium Hydroxide (Milk Of Magnesia 30 Ml Oral.Susp) 30 ml PO DAILY PRN PRN Reason: Constipation Magnesium Oxide (Magnesium Oxide 400 Mg Tablet) 400 mg PO DAILY@06 [facility] Last Admin: 04/23/25 05:45 Dose: 400 mg Documented By: ELLE Melatonin (Melatonin 3 Mg Tablet) 6 mg PO BEDTIME PRN PRN Reason: Insomnia Oxcarbazepine (Oxcarbazepine 300 Mg Tablet) 300 mg PO BID@ [facility] Last Admin: 04/23/25 05:45 Dose: 300 mg Documented By: ELLE Prazosin HCl (Prazosin Hcl 1 Mg Capsule) 2 mg PO DAILY@1999 [facility]; Protocol Last Admin: 04/22/25 20:31 Dose: 2 mg Documented By: ELLE Prednisone (Prednisone 5 Mg Tablet) 5 mg PO Q48H [facility] Last Admin: 04/22/25 08:41 Dose: 5 mg Documented By: SHAHZAD Roflumilast (Roflumilast 500 Mcg Tablet) 500 mcg PO DAILY@06 [facility] Last Admin: 04/23/25 05:44 Dose: 500 mcg Documented By: ELLE Sodium Chloride (0.9 % Sodium Chloride Flush 3 Ml Syringe) [facility] Last Admin: 04/23/25 08:43 Dose: 3 ml Documented By: PASHA Valsartan (Valsartan 40 Mg Tablet) 40 mg PO DAILY@06 [facility]; Protocol Last Admin: 04/23/25 05:44 Dose: 40 mg Documented By: ELLE Verapamil HCl (Verapamil Hcl 120 Mg Tablet) 120 mg PO BID@599,1999 [facility]; Protocol Last Admin: 04/23/25 05:45 Dose: 120 mg Documented By: ELLE Labs 04/21/25 03:56 04/23/25 06:02 Labs: Laboratory Results - last 24 hr 04/23/25 06:02 Hold Purple Top SEE NOTE Anion Gap 14 Estim Creat Clear Calc 68.0 Estimated GFR > 60 Random Glucose 91 Calcium 9.4 NT-Pro-B Natriuret Pep 92.3 Microbiology Microbiology Results: Microbiology 04/20/25 20:24 Blood Culture - Preliminary Blood - Venous No growth after 48 hours. 04/20/25 19:22 Blood Culture - Preliminary Blood - Venous No growth after 48 hours. Assessment and Plan (1) Diastolic heart failure: Status: Acute Plan 60-year-old female with a past medical history of HTN, HLD, asthma/COPD, JUANITO, trigeminal neuralgia, aortic stenosis, HFpEF, tobacco dependence, pulmonary nodules, obesity, CVA; discharged recently after being treated for COPD exacerbation on 04/17/2025; presented to the hospital today with a chief complaint of shortness of breath. Noted to be in acute COPD exacerbation. HFpEF Patient with increased shortness fall Bilateral lower extremity pitting edema and weight gain IV Lasix 40 mg b.i.d. Daily weight Monitor intake and output closely -2.9 liters Recurrent COPD exacerbation Patient just discharge from the hospital on 04/17/25 after being treated for COPD exacerbation. Currently not in respiratory distress Continue home supplemental oxygen Nebulizations standing and p.r.n. Pulmonology following Hypertension losartan, verapamil CVA Continue home aspirin, statin Mood disorder Continue home Abilify, duloxetine Chronic pain syndrome Continue Dilaudid as needed HFpEF Continue home Lasix Trigeminal neurology Patient on oxcarbazepine DVT prophylaxis: Lovenox Code status: Full code PT rec STR Quality Stroke Does the patient have a stroke diagnosis?: No VTE Prior VTE?: No VTE Risk Level:: Medical - moderate - high VTE Device Contraindication: Treatment Not Indicated VTE Drug Contraindication: N/A - Med Ordered
[2025-04-23] MEDS: Chlorhexidine Gluc Oral Rinse 15 ML MOUTHWASH BUCCAL ×2 (11:07→19:57)
--- NOTE | 2025-04-23 14:12 | MHC.CM.PN ---
Addendum entered by Tara Keenan 04/23/25 15:14: PT REQUESTING TO SEE CM STATING SHE NO LONGER AGREES WITH [facility] REFERRAL, REFERRAL PLACED AFTER INITIAL CONVERSATION AND [facility] HAS DECLINED Original Note: PT CURRENTLY AGREEABLE TO STR SHE IS AWARE [facility] HAS DECLINED THEY ARE NOT CONTRACTED WITH HER INSURANCE SHE IS ALSO AWARE [facility] IS FOLLOWING, BUT STATES SHE WILL NOT GO THERE PER DISCUSSION, REFERRAL MADE TO [facility], AWAITING RESPONSE
[2025-04-23] MEDS: Aspirin Enteric Coated 81 MG TABLET.DR PO (19:57)
[2025-04-24] VITALS (10 sets, daily range): BP systolic 102–157; BP diastolic 51–84; PULSE 72–94; RESP 15–20; TEMP 36.1–36.6; O2SAT 89–95
[2025-04-24] MEDS: Albuterol/Iprat 2.5/0.5MG 3 ML AMPUL.NEB INHALE ×3 (06:13→20:40)
[2025-04-24] MEDS: Chlorhexidine Gluc Oral Rinse 15 ML MOUTHWASH BUCCAL ×2 (08:07→20:14)
[2025-04-24] MEDS: 0.9 % Sodium Chloride Flush 3 ML SYRINGE IVFLUSH ×3 (08:08→20:19)
[2025-04-24] MEDS: Milk of Magnesia 30 ML ORAL.SUSP PO (08:12)
--- NOTE | 2025-04-24 10:44 | MHC.CM.PN ---
CM met with pt and her to confirm that [facility] is [facility], auth is pending, pt. and has questions about this SNF, CM gave info.
--- NOTE | 2025-04-24 12:01 | MHC.SL.SWA ---
Speech Pathologist Impression: WFL Risk of Aspiration Due to: COPD, dentition status Dysphasia Diet Status: Recommend CONTINUE diet of REGULAR/THIN Liquid Consistency and Strategies for Safe Swallow: Liquid Intake Recommendation: Thin Liquid Intake Strategies: Unrestricted Solid Food Consistency: Dietary Recommendations: Regular Additional Modifications to Solid Foods: Oral Medication Intake: Whole with Liquid Please contact the pharmacy regarding appropriate crushable or liquid drug formulations that are available whenever modified delivery is recommended. Compensatory Strategies and Precautions to be Taken for Safe Swallow: Sitting Upright (90 deg) Small Bites and Sips Alternate Liquids/Solids Rate of Ingestion Change Supervision While Eating and Drinking for Safe Swallow: None Needed Foods to Avoid: Difficult/Pcak-re-pyii solids Swallowing Recommended Treatments: Compens. Strategy Educat. Recommendation for Speech: Inpatient Speech Therapy Comment: Patient met in room for dysphagia tx. Patient given AM snack of irena crackers and applesauce. Patient independently dipping irena crackers in applesauce to soften. Patient with occasional prolonged mastication, adequate cohesion and clearance. Patient requiring minimum cues to utilize compensatory strategies. Patient with no overt s/sx of penetration/aspiration. Patient continues with dentition pain; missing crown/exposed root and one loose tooth. Patient majorly chewing with R side of mouth, as painful to chew on L. Patient independently choosing softer items off menu; reports more mechanical soft. Discussed diet modifications and ability for patient to modify on her own vs placed on restricted modifications and may not be allowed typical items. Patient in agreement to remain on current diet and just choose what she thinks she would be able to handle for mastication efforts. Patient requesting continuation of DEPUTY SHERIFF LIEUTENANT at next setting; most likely evaluation to check tolerance vs need for continuous speech therapy. Plan to follow-up x1 to ensure tolerance and answer any additional questions patient may have. Recommend CONTINUE on current diet of REGULAR/THIN. Frequency/Duration: M-F; follow-up x1 Date Range for Service Req: Timeline to reassess: Stationary Equipment Mechanic Clinican/Clinical Fellow: No Supervisory Statement: I have reviewed and agree with the student/clinical fellow's documentation: No Speech Language Pathologist: Sarah Lucas M.A., CCC-DEPUT[employer] SHERIFF LIEUTENANT
--- NOTE | 2025-04-24 14:44 | HO.PM.IMPN ---
Subjective Subjective Date of Service: 04/24/25 Review of Systems Follow up shortness breath, heart failure exacerbation chronic shortness of breath feeling better Physical Exam Exam: Exam: Appearing in no acute distress lung sounds are clear to auscultation heart regular rate rhythm, clear S1, S2 positive bowel sounds, abdomen is soft, nontender neuro patient is alert x3, no focal deficits Vital Signs: Vital Signs: Last Vital Signs Temp 97.4 F 04/24/25 11:46 Pulse 82 04/24/25 11:46 Resp 18 04/24/25 11:46 BP 157/84 H 04/24/25 11:46 Pulse Ox 90 L 04/24/25 11:46 O2 Del Method Nasal Cannula 04/24/25 11:46 O2 Flow Rate 3 04/24/25 11:46 Oxygen Flow Rate 3 04/20/25 18:51 BMI result Body Mass Index 40.1 Objective Data Active Medications Acetaminophen (Acetaminophen 325 Mg Tablet) 650 mg PO Q6H PRN PRN Reason: Pain, Mild 1-3,fever,headache Last Admin: 04/22/25 04:19 Dose: 650 mg Documented By: ADARSH Acetaminophen/Butalbital/Caffeine (Butalb/Acetamin/Caff 50/325/40 Tablet) 1 tab PO DAILY MRX1 PRN PRN Reason: Migraine Headache Albuterol/Ipratropium (Albuterol/Iprat 2.5/0.5mg 3 Ml Ampul.Neb) 3 ml INHALE Q4H PRN PRN Reason: Shortness of Breath/Wheezing Last Admin: 04/23/25 18:21 Dose: 3 ml Documented By: CHARLA Albuterol/Ipratropium (Albuterol/Iprat 2.5/0.5mg 3 Ml Ampul.Neb) 3 ml INHALE RQ6H [facility] Last Admin: 04/24/25 11:25 Dose: 3 ml Documented By: WILL Aripiprazole (Aripiprazole 5 Mg Tablet) 5 mg PO DAILY@0600 [facility] Last Admin: 04/24/25 05:09 Dose: 5 mg Documented By: LAST Aspirin (Aspirin Enteric Coated 81 Mg Tablet.) 81 mg PO DAILY@2000 [facility] Last Admin: 04/23/25 19:57 Dose: 81 mg Documented By: LAST Atorvastatin Calcium (Atorvastatin Calcium 80 Mg Tablet) 80 mg PO DAILY@1999 [facility] Last Admin: 04/23/25 19:57 Dose: 80 mg Documented By: LAST Baclofen (Baclofen 20 Mg Tablet) 20 mg PO TID@599, [facility] Last Admin: 04/24/25 11:39 Dose: 20 mg Documented By: GÓMEZ Benzocaine (Benzocaine 20 % Oral Gel 9 Gm Tube) 1 appl MUCOUS MEM QID PRN; Protocol PRN Reason: tooth pain Last Admin: 04/23/25 15:58 Dose: 1 appl Documented By: CHARLA Calcium Carbonate (Calcium Carbonate 750 Mg Tab.Chew) 750 mg PO Q4H PRN PRN Reason: Heartburn Last Admin: 04/21/25 20:38 Dose: 750 mg Documented By: JESSICA Chlorhexidine Gluconate (Chlorhexidine Gluc Oral Rinse 15 Ml Mouthwash) 15 ml BUCCAL BID [facility] Last Admin: 04/24/25 08:07 Dose: 15 ml Documented By: GÓMEZ Duloxetine HCl (Duloxetine Hcl 60 Mg Capsule.Dr) 60 mg PO BID@ [facility] Last Admin: 04/24/25 05:09 Dose: 60 mg Documented By: LAST Enoxaparin Sodium (Enoxaparin Sodium 40 Mg/0.4 Ml Syringe) 40 mg SUBCUT Q24H [facility] Last Admin: 04/23/25 19:57 Dose: 40 mg Documented By: LAST Furosemide (Furosemide 40 Mg Tablet) 40 mg PO DAILY [facility]; Protocol Last Admin: 04/24/25 08:07 Dose: 40 mg Documented By: GÓMEZ Gabapentin (Gabapentin 400 Mg Capsule) 1,200 mg PO TID@0600,1199,1999 [facility] Last Admin: 04/24/25 11:39 Dose: 1,200 mg Documented By: GÓMEZ Hydromorphone HCl (Hydromorphone Hcl 2 Mg Tablet) 2 mg PO Q6H PRN PRN Reason: Breakthrough Pain Last Admin: 04/24/25 11:41 Dose: 2 mg Documented By: GÓMEZ Ketorolac Tromethamine (Ketorolac Tromethamine 30 Mg/Ml Vial) 30 mg IVPUSH Q6H PRN PRN Reason: tooth pain Last Admin: 04/24/25 08:07 Dose: 30 mg Documented By: GÓMEZ Lorazepam (Lorazepam 0.5 Mg Tablet) 0.5 mg PO BEDTIME@1999 [facility] Last Admin: 04/23/25 19:58 Dose: 0.5 mg Documented By: LAST Lorazepam (Lorazepam 0.5 Mg Tablet) 0.5 mg PO DAILY PRN PRN Reason: Anxiety Last Admin: 04/23/25 08:42 Dose: 0.5 mg Documented By: PASHA Magnesium Hydroxide (Milk Of Magnesia 30 Ml Oral.Susp) 30 ml PO DAILY PRN PRN Reason: Constipation Last Admin: 04/24/25 08:12 Dose: 30 ml Documented By: GÓMEZ Magnesium Oxide (Magnesium Oxide 400 Mg Tablet) 400 mg PO DAILY@599 [facility] Last Admin: 04/24/25 05:09 Dose: 400 mg Documented By: LAST Melatonin (Melatonin 3 Mg Tablet) 6 mg PO BEDTIME PRN PRN Reason: Insomnia Oxcarbazepine (Oxcarbazepine 300 Mg Tablet) 300 mg PO BID@ [facility] Last Admin: 04/24/25 05:09 Dose: 300 mg Documented By: LAST Prazosin HCl (Prazosin Hcl 1 Mg Capsule) 2 mg PO DAILY@1999 [facility]; Protocol Last Admin: 04/23/25 19:57 Dose: 2 mg Documented By: LAST Prednisone (Prednisone 5 Mg Tablet) 5 mg PO Q48H [facility] Last Admin: 04/24/25 08:07 Dose: 5 mg Documented By: GÓMEZ Roflumilast (Roflumilast 500 Mcg Tablet) 500 mcg PO DAILY@599 [facility] Last Admin: 04/24/25 05:09 Dose: 500 mcg Documented By: LAST Sodium Chloride (0.9 % Sodium Chloride Flush 3 Ml Syringe) 3 ml IVFLUSH [facility] Last Admin: 04/24/25 08:08 Dose: 3 ml Documented By: GÓMEZ Valsartan (Valsartan 40 Mg Tablet) 40 mg PO DAILY@06 [facility]; Protocol Last Admin: 04/24/25 05:09 Dose: 40 mg Documented By: LAST Verapamil HCl (Verapamil Hcl 120 Mg Tablet) 120 mg PO BID@ [facility]; Protocol Last Admin: 04/24/25 05:09 Dose: 120 mg Documented By: LAST Labs 04/21/25 03:56 04/23/25 06:02 Assessment and Plan (1) Diastolic heart failure: Status: Acute Plan 60-year-old female with a past medical history of HTN, HLD, asthma/COPD, JUANITO, trigeminal neuralgia, aortic stenosis, HFpEF, tobacco dependence, pulmonary nodules, obesity, CVA; discharged recently after being treated for COPD exacerbation on 04/17/2025; presented to the hospital today with a chief complaint of shortness of breath. Noted to be in acute COPD exacerbation. HFpEF Patient with increased shortness fall, resolved, at baseline Bilateral lower extremity pitting edema and weight gain IV Lasix 40 mg b.i.d. changed to 40 mg po daily Daily weight Monitor intake and output closely -3.8 liters Recurrent COPD exacerbation Patient just discharge from the hospital on 04/17/25 after being treated for COPD exacerbation. Currently not in respiratory distress Continue home supplemental oxygen Nebulizations standing and p.r.n. Pulmonology following Hypertension losartan, verapamil CVA Continue home aspirin, statin Mood disorder Continue home Abilify, duloxetine Chronic pain syndrome Continue Dilaudid as needed HFpEF Continue home Lasix Trigeminal neurology Patient on oxcarbazepine DVT prophylaxis: Lovenox Code status: Full code PT rec STR Quality Stroke Does the patient have a stroke diagnosis?: No VTE Prior VTE?: No VTE Risk Level:: Medical - moderate - high VTE Device Contraindication: Treatment Not Indicated VTE Drug Contraindication: N/A - Med Ordered
[2025-04-24] MEDS: Aspirin Enteric Coated 81 MG TABLET.DR PO (20:15)
[2025-04-24] MEDS: Benzocaine 20 % Oral Gel 9 GM TUBE 1 APPL MUCOUS MEM (22:59)
[2025-04-25] VITALS (10 sets, daily range): BP systolic 107–121; BP diastolic 54–58; PULSE 74–84; RESP 16–21; TEMP 36.2–36.6; O2SAT 90–97
[2025-04-25] MEDS: Albuterol/Iprat 2.5/0.5MG 3 ML AMPUL.NEB INHALE ×3 (02:31→16:36)
[2025-04-25] MEDS: Chlorhexidine Gluc Oral Rinse 15 ML MOUTHWASH BUCCAL (08:58)
[2025-04-25] MEDS: 0.9 % Sodium Chloride Flush 3 ML SYRINGE IVFLUSH ×2 (08:58→16:41)
[2025-04-25] MEDS: Milk of Magnesia 30 ML ORAL.SUSP PO (09:35)
--- NOTE | 2025-04-25 12:09 | MHC.SL.SWA ---
Speech Pathologist Impression: WFL Risk of Aspiration Due to: Hx COPD, acute on chronic hypoxemic respiratory failure Dysphasia Diet Status: No Change Liquid Consistency and Strategies for Safe Swallow: Liquid Intake Recommendation: Thin Liquid Intake Strategies: Unrestricted Solid Food Consistency: Dietary Recommendations: Regular Additional Modifications to Solid Foods: CRUSH larger pills when possible Oral Medication Intake: Crushed with Puree Please contact the pharmacy regarding appropriate crushable or liquid drug formulations that are available whenever modified delivery is recommended. Compensatory Strategies and Precautions to be Taken for Safe Swallow: Sitting Upright (90 deg) Small Bites and Sips Alternate Liquids/Solids Rate of Ingestion Change Supervision While Eating and Drinking for Safe Swallow: None Needed Foods to Avoid: Difficult/[id number] solids Swallowing Recommended Treatments: Compens. Strategy Educat. Recommendation for Speech: D/C Please re-refer if needed. Club Waiter/Waitress Clinican/Clinical Fellow: No Supervisory Statement: I have reviewed and agree with the student/clinical fellow's documentation: No Speech Language Pathologist: Yanet Hinton M.A., CCC-WELL SITE DRILLING ENGINEER
--- NOTE | 2025-04-25 15:08 | MHC.CM.PN ---
INSURANCE AUTH RECEIVED FOR PATIENT TO GO TO [facility], SHE WILL TRANSPORT THERE VIA BLS/[facility] TODAY. PATIENT IS AWARE AND IN AGREEMENT WITH THE DISCHARGE PLAN.
--- NOTE | 2025-04-25 15:12 | PM.DS ---
DS: Providers Provider Date of Service: 04/25/25 Date of admission: 04/20/25 20:20 Date of discharge: 04/25/25 Primary care physician: Antione Segura PA-C Consults: 04/21/25 06:14 Consult to Pulmonology Routine Consulting Provider: [facility] Pulmonology Services Reason for consultation: Recurrent COPD exacerbations DS: Diagnosis Discharge Diagnosis (1) Acute on chronic heart failure with preserved ejection fraction (HFpEF): Status: Acute (2) Tooth pain: Status: Acute (3) Dental infection: Status: Acute (4) COPD exacerbation: Status: Acute DS: Summary Hospital Course Hospital Course: From the history and physical by the admitting hospitalist, Concepción Nolan, 04/22/25: '60-year-old female with a past medical history of HTN, HLD, asthma/COPD, JUANITO, trigeminal neuralgia, aortic stenosis, tobacco dependence, pulmonary nodules, obesity, CVA; discharged recently after being treated for COPD exacerbation on 04/17/2025; presented to the hospital today with a chief complaint of shortness of breath. Patient mentioned the past 2 days she has been having worsening shortness of breath. Has been compliant with her prednisone taper. Denies any chest pain or palpitations. Denies any nausea vomiting. Reports a cough. Denies any GI or symptoms. Review of all other systems is negative except mentioned above ER course: Per ER team, patient on presentation noted to be short of breath and wheezing; given nebulizations and steroids.' 60-year-old female with a past medical history of HTN, HLD, asthma/COPD, JUANITO, trigeminal neuralgia, aortic stenosis, HFpEF, tobacco dependence, pulmonary nodules, obesity, CVA; discharged recently after being treated for COPD exacerbation on 04/17/2025; initially admitted for COPD exacerbation but after consultation with Pulmonology, symptoms attributable more to CHF exacerbation than COPD exacerbation given pitting leg edema and weight gain. She underwent IV diuresis and was diuresed net negative 5.9L; chronic furosemide dose increased from 20 to 40 mg daily. TTE 02/08/25 reviewed: '- The left ventricular systolic function is hyperdynamic. The visually estimated ejection fraction is >70%. - There is mild aortic valve stenosis.' She should follow up with [facility] Cardiology in 2-3 weeks. She had initially been treated with methlyprednisolone but was weaned down to her usual dose of 5 mg of prednisone q48h. She did complain of pain from tooth infection complicated by trigeminal neuralgia and was started on amoxicillin-clavulanate. She will need dental follow-up. She was discharged to short-term rehabilitation. Time Attestation Discharge Coordination Time (in mins): 35 Quality: Safe Use of Opioids Does Pt have an Active Cancer Diagnosis on the Problem List?: No Quality: Stroke Does the patient have a stroke diagnosis?: No Physical Exam Vital Signs: Vital Signs: Last Vital Signs Temp 97.6 F 04/25/25 11:39 Pulse 84 04/25/25 11:39 Resp 20 04/25/25 11:39 BP 120/58 L 04/25/25 11:39 Pulse Ox 90 L 04/25/25 11:39 O2 Del Method Nasal Cannula 04/25/25 11:39 O2 Flow Rate 2 04/25/25 11:39 Oxygen Flow Rate 3 04/20/25 18:51 BMI result Body Mass Index 40.1 Gen: in no acute distress HEENT: sclera anicteric, moist mucus membranes Neck: supple Lungs: diminished Heart: regular rate and rhythm, no murmurs Abd: soft, non-tender, non-distended, obese Ext: no edema Skin: warm/well-perfused Neuro: alert and oriented x3, no focal findings Psych: appropriate affect DS: Data Data Completed and Pending Completed studies during hospitalization [Text1]: Procedures Assistance with Respiratory Ventilation, Less than 24 Consecutive Hours, Continuous Positive Airway Pressure (03/13/25) Introduction of Vasopressor into Peripheral Vein, Percutaneous Approach (12/01/24) Laboratory Results WBC 10.0 X10*3/uL (4.8-10.8) 04/21/25 03:56 RBC 3.60 X10*6/uL (4.20-5.50) L 04/21/25 03:56 Hgb 10.8 g/dl (12.0-16.0) L 04/21/25 03:56 Hct 35.0 % (37.0-47.0) L 04/21/25 03:56 MCV 97.2 fL (80.0-98.0) 04/21/25 03:56 MCH 30.0 pg (27.0-33.0) 04/21/25 03:56 MCHC 30.9 g/dl (31.0-35.0) L 04/21/25 03:56 RDW 15.1 % (11.0-16.0) 04/21/25 03:56 Plt Count 435 X10*3/uL (160-400) H 04/21/25 03:56 MPV 9.2 fL (9.4-12.3) L 04/21/25 03:56 Immature Gran % (Auto) 1.4 % (0.0-0.4) H 04/21/25 03:56 Neut % (Auto) 93.1 % (45-73) H 04/21/25 03:56 Lymph % (Auto) 4.3 % (20-40) L 04/21/25 03:56 [place] % (Auto) 0.9 % (2-11) L 04/21/25 03:56 Eos % (Auto) 0.0 % (0-4) 04/21/25 03:56 Baso % (Auto) 0.3 % (0-2) 04/21/25 03:56 Lymph # (Auto) 0.4 X10*3/uL (1.2-4.9) L 04/21/25 03:56 [place] # (Auto) 0.1 X10*3/uL (0.1-1.2) 04/21/25 03:56 Eos # (Auto) 0.0 X10*3/uL (0.0-0.4) 04/21/25 03:56 Baso # (Auto) 0.0 X10*3/uL (0.0-0.2) 04/21/25 03:56 Abs Immat Gran (auto) 0.14 X10*3/uL (0.00-0.03) H 04/21/25 03:56 Absolute Neuts (auto) 9.3 x10*3/uL (2.0-8.3) H 04/21/25 03:56 Absolute Nucleated RBC 0.040 X10*3/uL (0.0-0.012) H 04/21/25 03:56 Nucleated RBC % (auto) 0.4 /100WBC (0.0-0.2) H 04/21/25 03:56 Smear Tech's Comments VERIFIED 04/21/25 03:56 Hold Purple Top SEE NOTE 04/23/25 06:02 VBG pH 7.40 (7.32-7.43) 04/20/25 20:35 VBG pCO2 59 mmHg 04/20/25 20:35 VBG pO2 81 mmHg 04/20/25 20:35 VBG HCO3 37 mmol/L (22-26) H 04/20/25 20:35 VBG O2 Saturation 98.0 % 04/20/25 20:35 VBG Base Excess 10.9 mmol/L 04/20/25 20:35 Sodium 141 mmol/L (135-145) 04/23/25 06:02 Potassium 3.9 mmol/L (3.3-5.1) 04/23/25 06:02 Chloride 92 mmol/L (96-108) L 04/23/25 06:02 Carbon Dioxide 39 mmol/L (22-29) H 04/23/25 06:02 Anion Gap 14 (12-20) 04/23/25 06:02 BUN 18 mg/dL (9-16) H 04/23/25 06:02 Creatinine 0.91 mg/dL (0.5-1.4) 04/23/25 06:02 Estim Creat Clear Calc 68.0 04/23/25 06:02 Estimated GFR > 60 04/23/25 06:02 Random Glucose 91 mg/dL (60-115) 04/23/25 06:02 Lactic Acid 1.5 mmol/L (0.5-2.0) 04/20/25 19:22 Calcium 9.4 mg/dL (8.4-10.2) 04/23/25 06:02 Total Bilirubin 0.2 mg/dL (0.0-1.0) 04/21/25 03:56 AST 20 U/L (5-31) 04/21/25 03:56 ALT 16 U/L (0-31) 04/21/25 03:56 Alkaline Phosphatase 67 U/L (39-117) 04/21/25 03:56 Troponin I High Sens 7.1 ng/L (<3.5-17.0) 04/20/25 19:22 NT-Pro-B Natriuret Pep 92.3 pg/mL (<300) 04/23/25 06:02 Total Protein 7.0 g/dL (6.5-8.0) 04/21/25 03:56 Albumin 4.1 g/dL (3.5-5.0) 04/21/25 03:56 Urine Color Yellow 04/20/25 21: Urine Appearance Clear 04/20/25 21: Urine pH 6.0 (5.0-9.0) 04/20/25 21:26 Ur Specific [place] 1.010 (1.005-1.025) 04/20/25 21: Urine Protein Negative mg/dL (Neg-Trace) 04/20/25 21: Urine Glucose (UA) Negative mg/dL (Negative) 04/20/25 21: Urine Ketones Negative mg/dL (Negative) 04/20/25 21: Urine Blood Negative (Negative) 04/20/25 21: Urine Nitrite Negative (Negative) 04/20/25 21: Ur Leukocyte Esterase Negative (Negative) 04/20/25 21: Urine RBC 0-2 /HPF (0-2) 04/20/25 21:26 Urine WBC 0-5 /HPF (0-5) 04/20/25 21:26 Ur Squamous Epith Cells 0-2 /HPF (0-2) 04/20/25 21:26 Urine Bacteria None Seen (None Seen) 04/20/25 21: Hyaline Casts 0-2 /LPF (0-2) 04/20/25 21:26 COVID-19 (SONAL) Negative (Negative) 04/20/25 20:24 COVID-19 Clin Com See Note 04/20/25 20:24 Influenza Type A (DERREK) Negative (Negative) 04/20/25 20:24 Influenza Type B (DERREK) Negative (Negative) 04/20/25 20:24 Influenza A & B Note See Note 04/20/25 20:24 Discharge Plan Discharge Anticipated Discharge Date/Time: 04/25/25 14:58 Patient Disposition: Xfer SNF Discharge Diagnosis: CHF exacerbation dental infection/trigeminal neuralgia [facility]errals: [facility] [Outside] - 1 Week Antione Segura PA-C [Primary Care Provider, Internal Medicine] - 1 Week Discharge Medications: New furosemide 40 mg Tablet 40 mg PO DAILY Qty: 30 0RF Protocol: Hold for SBP< HOLD for SBP < : 90 Anbesol (benzocaine) Max Str 20 % Gel 1 appl mucous membrane QID PRN (Reason: tooth pain) Qty: 1 0RF Protocol: Apply to: Apply to: tooth and gums amoxicillin-pot clavulanate 875-125 mg Tablet 1 tab PO Q12H Qty: 14 0RF chlorhexidine gluconate 0.12 % Mouthwash 15 ml buccal BID Qty: 120 0RF Continued ipratropium-albuterol 0.5 mg-3 mg(2.5 mg base)/3 mL solution for nebulization 3 ml inhalation Q4H PRN (Reason: for dyspnea) Qty: 180 11RF baclofen 20 mg tablet 20 mg PO TID@0600,1199,1999 aripiprazole [Abilify] 5 mg tablet 5 mg PO DAILY@0600 oxcarbazepine 300 mg tablet 300 mg PO BID@06,1999 acetaminophen 650 mg Tablet Extended Release 1,300 mg PO Q8H PRN (Reason: Pain) magnesium oxide 400 mg magnesium Tablet 400 mg PO DAILY@0600 oxycodone 5 mg tablet 5 mg PO Q6H PRN (Reason: Severe Pain (Scale Score 7-10)) melatonin 3 mg Tablet 3 mg PO BEDTIME PRN (Reason: Insomnia) atorvastatin 80 mg tablet 80 mg PO DAILY@1999 ggdnbfkidh-fvbkpmfyeiavv-nycy 50-325-40 mg tablet 1 tab PO DAILY MRX1 PRN (Reason: Migraine Headache) hyoscyamine sulfate 0.125 mg tablet 0.25 mg PO Q6H PRN (Reason: Abdominal Discomfort) gabapentin 300 mg capsule 1,200 mg PO TID@0600,1199,1999 duloxetine 60 mg capsule,delayed release(DR/EC) 60 mg PO BID@0600,2000 (DME) nebulizer and compressor Device See Rx Instructions .Route Qty: 1 0RF Rx Instructions: As directed albuterol sulfate 90 mcg/actuation HFA aerosol inhaler 2 puff inhalation Q4H PRN (Reason: Shortness Of Breath Or Wheezing) aspirin 81 mg tablet,delayed release (DR/EC) 81 mg PO DAILY@1999 polyethylene glycol 3350 [Miralax] 17 gram/dose Powder 17 g PO DAILY PRN (Reason: Constipation) lorazepam 0.5 mg tablet 0.5 mg PO BEDTIME@1999 Breztri Aerosphere 160-9-4.8 mcg/actuation HFA aerosol inhaler 2 inh inhalation BID@0600,1800 lorazepam 0.5 mg tablet 0.5 mg PO DAILY PRN (Reason: Anxiety) verapamil 120 mg tablet 120 mg PO BID@0600,2000 valsartan 40 mg tablet 40 mg PO DAILY@0600 Protocol: Hold for SBP< HOLD for SBP < : 90 roflumilast [Daliresp] 500 mcg tablet 500 mcg PO DAILY@0600 prednisone 5 mg tablet 5 mg PO Q48H Rx Instructions: Patient takes on even days omeprazole 20 mg capsule,delayed release(DR/EC) 20 mg PO DAILY@0600 hydromorphone [Dilaudid] 2 mg tablet 2 mg PO Q6H Qty: 16 0RF Rx Instructions: Partial Fill upon patient request. calcium carbonate-vitamin D3 600 mg-5 mcg (200 unit) tablet 1 tab PO DAILY@1999 prazosin 2 mg capsule 2 mg PO DAILY@2000 (DME) Oxygen Home Use Kit See Rx Instructions .Route Rx Instructions: As directed Discontinued furosemide 20 mg tablet 20 mg PO DAILY@0600 Discharge Orders: Discharge Order (Routine); Ordered 04/25/25 Ordered By: Saray Redman Diet: Low salt diet Activity on Discharge: As tolerated Stand Alone Forms: Patient Portal Discharge page Print Language: Colombian Activity Restrictions/Additional Instructions: I anticipate that the patient will stay at the half-way facility for less than 30 days. Care Plan Goals: cardiopulmonary health Health Concerns: CHF exacerbation dental infection/trigeminal neuralgia Plan of Treatment: Low-sodium diet: less than 2000 mg of sodium daily. Weigh yourself daily and call your doctor if your weight goes up by more than 3 lb/day or 5 lb/week. Increase furosemide from 20 to 40 mg daily; no changes made to other chronic medications Follow up with [facility] Cardiology in 2-3 weeks take amoxicillin-clavulanate twice daily for 7 days; make appointment with your dentist to be seen as soon as possible; use Anbesol for pain relief; also use chlorhexidine mouthwash Please follow up with your primary care doctor within 1 week of discharge from rehabilitation. Return to the hospital if you experience recurrent or worsening symptoms. Assessment: See Discharge Summary.
== END 2025-04-25 18:29 | disposition skilled nursing facility (03) | DRG 194 ==
LOC: HO.ED 20:22 → HO.EDOVER 20:26 → HO.IMC 04-21 14:02
PROVIDERS: Nurse Practitioner Acute Care; Admitting Provider Hospitalist; Emergency Provider Emergency Medicine Emergency Medical Services; PCP Physician Assistant Surgical; Visit Provider Family Medicine
DX: I11.0 Hypertensive heart disease with heart failure (principal); Z99.81 Dependence on supplemental oxygen; E66.9 Obesity, unspecified; F39 Unspecified mood [affective] disorder; I50.33 Acute on chronic diastolic (congestive) heart failure; I35.0 Nonrheumatic aortic (valve) stenosis; G47.33 Obstructive sleep apnea (adult) (pediatric); K04.7 Periapical abscess without sinus; G50.0 Trigeminal neuralgia; G89.4 Chronic pain syndrome; Z68.41 Body mass index [BMI] 40.0-44.9, adult; Z20.822 Contact with and (suspected) exposure to COVID-19; Z86.73 Personal history of transient ischemic attack (TIA), and cerebral infarction without residual deficits; Z79.82 Long term (current) use of aspirin; Z87.891 Personal history of nicotine dependence; Z79.899 Other long term (current) drug therapy
CPT/HCPCS: 36415; 71045; 80048; 80053; 81001; 82803; 83605; 83880; 84484; 85025; 87040; 87502; 87635; 92526; 92610; 93005; 94660; 97162; 97166; 97530; 97535; 99285; J1650; J1885; J1938; J2919; J3475

== ENCOUNTER → 2025-04-20 18:45 | Outpatient (BNV) | payer BC, SELFPAY | PROVIDERS: Admitting Provider Hospitalist; Emergency Provider Emergency Medicine Emergency Medical Services; PCP Physician Assistant Surgical; Visit Provider Internal Medicine Cardiovascular Disease | DX: R06.02 Shortness of breath (principal) | CPT/HCPCS: 93010 ==

== ENCOUNTER → 2025-04-20 18:45 | Outpatient (BNV) | payer BC, SELFPAY | PROVIDERS: Admitting Provider Hospitalist; Emergency Provider Emergency Medicine Emergency Medical Services; PCP Physician Assistant Surgical; Visit Provider Radiology Diagnostic Radiology | DX: R07.9 Chest pain, unspecified (principal) | CPT/HCPCS: 71045 ==

== ENCOUNTER → 2025-04-20 20:20 | Outpatient (BNV) | payer BC, SELFPAY | PROVIDERS: Admitting Provider Hospitalist; Emergency Provider Emergency Medicine Emergency Medical Services; PCP Physician Assistant Surgical; Visit Provider Internal Medicine Pulmonary Disease | DX: J44.9 Chronic obstructive pulmonary disease, unspecified (principal); R06.09 Other forms of dyspnea; R06.01 Orthopnea; I50.33 Acute on chronic diastolic (congestive) heart failure | CPT/HCPCS: 99253 ==

== ENCOUNTER → 2025-04-20 20:20 | Outpatient (BNV) | payer BC, SELFPAY | PROVIDERS: Admitting Provider Hospitalist; Emergency Provider Emergency Medicine Emergency Medical Services; PCP Physician Assistant Surgical; Visit Provider Nurse Practitioner Acute Care | DX: I50.32 Chronic diastolic (congestive) heart failure (principal) | CPT/HCPCS: 99232 ==

== ENCOUNTER 2025-05-13 05:06 | Inpatient (IN) | payer BC, SELFPAY ==
[2025-05-13] VITALS (13 sets, daily range): BP systolic 113–150; BP diastolic 46–65; PULSE 76–92; RESP 16–23; TEMP 36.3–36.9; O2SAT 94–100; BMI 42.7; BMI 40.0
--- NOTE | 2025-05-13 | ECG_ITS ---
Test Reason : sob Blood Pressure : */* mmHG Vent. Rate : 89 BPM Atrial Rate : 89 BPM P-R Int : 142 ms QRS Dur : 82 ms QT Int : 354 ms P-R-T Axes : 56 66 60 degrees QTcB Int : 430 ms Normal sinus rhythm Normal ECG When compared with ECG of 20-Apr-2025 19:32, No significant change was found Referred By: Generic ED Physician Electronically Signed By: ANGEL HARRISON
--- NOTE | ~2025-05-13 | XR_ITS ---
CLINICAL HISTORY: resp distress 1 view chest x-ray Comparison: CR - XR CHEST 1V - 04/20/25 18:58 EST CR - XR CHEST 1V - 04/16/25 05:22 EST Findings: The lungs are clear. Heart size is normal. No acute fracture. IMPRESSION: No acute cardiopulmonary findings. This document has been electronically signed by: Jewel Handley MD on 05/13/2025 06:41:04
--- NOTE | 2025-05-13 05:19 | ED.GENADULT ---
HPI - General Adult General Chief complaint: Upper Respiratory Symptoms Stated complaint: RESP DISTRESS,CPAP PER EMS Time Seen by Provider: 05/13/25 05:19 History of Present Illness ED Provider: Courtney LOWE narrative: The patient is a 60-year-old woman with a history of significant COPD. She also has a history of congestive heart failure. She was most recently hospitalized at this hospital from April 20 through April 25. Prior to that she has been briefly hospitalized from April 16 to April 17. Prior to that she has been hospitalized from April 12 through April 13. Prior to that she has been hospitalized from April 08 through April 09. Prior to that she has been hospitalized from March 13 through March 19. In February she has been hospitalized from March 01 through March 02. The patient says that following her most recent hospitalization she went to a rehab facility from which she was discharged 5 days ago. It was at that point that she took her last dose of prednisone. She has therefore been home for about 5 days. She became fairly abruptly short of breath tonight. An ambulance was called. Paramedics felt the patient was very short of breath and they applied a CPAP mask. Additionally they administered IV methylprednisolone 125 mg. Also 2 DuoNebs. The patient does not think she has had a fever. Slight cough. She has had worsening edema of her lower legs. Related Data Home Medications ?Medication ?Instructions ?Recorded ?Confirmed atorvastatin 80 mg tablet 80 mg PO DAILY@199903/04/23 04/20/25 uszmbqvoxg-xmmwzxdgssivm-vcizndtr 1 tab PO DAILY MRX1 PRN Migraine 03/04/23 04/20/25 50 mg-325 mg-40 mg tablet Headache duloxetine 60 mg capsule,delayed 60 mg PO BID@060003/04/23 04/20/25 release gabapentin 300 mg capsule 1,200 mg PO TID@0600,1200,199903/04/23 04/20/25 hyoscyamine sulfate 0.125 mg tablet 0.25 mg PO Q6H PRN Abdominal 03/04/23 04/20/25 Discomfort Oxygen Home Use 04/16/23 02/26/25 prazosin 2 mg capsule 2 mg PO DAILY@199904/16/23 04/20/25 albuterol sulfate 90 mcg/actuation 2 puff inhalation Q4H PRN 01/31/24 04/20/25 aerosol inhaler Shortness Of Breath Or Wheezing aspirin 81 mg tablet,delayed 81 mg PO DAILY@199905/22/24 04/20/25 release calcium 600 mg (as 1 tab PO DAILY@199906/20/24 04/20/25 carbonate)-vitamin D3 5 mcg (200 unit) tablet baclofen 20 mg tablet 20 mg PO TID@0600,1200,199910/29/24 04/20/25 aripiprazole 5 mg tablet (Abilify) 5 mg PO DAILY@59912/01/24 04/20/25 oxcarbazepine 300 mg tablet 300 mg PO BID@599,199912/21/24 04/20/25 lorazepam 0.5 mg tablet 0.5 mg PO BEDTIME@1999 MODERATE 01/04/25 04/20/25 Anxiety polyethylene glycol 3350 17 17 g PO DAILY PRN Constipation 01/04/25 04/20/25 gram/dose oral powder (Miralax) budesonide 160 mcg-glycopyr 9 2 inh inhalation BID@06,1800 02/05/25 04/20/25 mcg-formot 4.8 mcg/actuation HFA inhaler (Breztri Aerosphere) lorazepam 0.5 mg tablet 0.5 mg PO DAILY PRN Anxiety 02/05/25 04/20/25 roflumilast 500 mcg tablet 500 mcg PO DAILY@59902/05/25 04/20/25 (Daliresp) valsartan 40 mg tablet 40 mg PO DAILY@59902/05/25 04/20/25 verapamil 120 mg tablet 120 mg PO BID@599,199902/05/25 04/20/25 omeprazole 20 mg capsule,delayed 20 mg PO DAILY@59903/01/25 04/20/25 release prednisone 5 mg tablet 5 mg PO Q48H 03/01/25 04/20/25 acetaminophen 650 mg 1,300 mg PO Q8H PRN Pain 03/13/25 04/20/25 tablet,extended release magnesium oxide 400 mg PO DAILY@59903/13/25 04/20/25 melatonin 3 mg tablet 3 mg PO BEDTIME PRN Insomnia 04/08/25 04/20/25 oxycodone 5 mg tablet 5 mg PO Q6H PRN Severe Pain (Scale 04/08/25 04/20/25 Score 7-10) Previous Rx's ?Medication ?Instructions ?Recorded nebulizer and compressor #1 ea 12/16/23 ipratropium 0.5 mg-albuterol 3 mg 3 ml inhalation Q4H PRN for 03/02/24 (2.5 mg base)/3 mL nebulization dyspnea #180 mL soln hydromorphone 2 mg tablet 2 mg PO Q6H #16 tabs 04/13/25 (Dilaudid) amoxicillin 875 mg-potassium 1 tab PO Q12H #14 tabs 04/25/25 clavulanate 125 mg tablet benzocaine 20 % mucosal gel 1 appl mucous membrane QID PRN 04/25/25 (Anbesol (benzocaine) Maximum tooth pain #1 g Strength) chlorhexidine gluconate 0.12 % 15 ml buccal BID #120 mL 04/25/25 mouthwash furosemide 40 mg tablet 40 mg PO DAILY #30 tabs 04/25/25 Allergies Allergy/AdvReac Type Severity Reaction Status Date / Time Iodinated Contrast Media (IV Allergy Intermediate HIVES Verified 04/20/25 18:53 CONTRAST) latex (LATEX) Allergy Unknown RASH Verified 04/20/25 18:53 adhesive tape Allergy Rash Verified 04/20/25 18:53 morphine (MORPHINE) AdvReac Unknown VOMITING Verified 04/20/25 18:53 Review of Systems Review of Systems: Yes all other systems are reviewed and are negative PMFSH Past Medical History Medical History Chronic lung disease Morbid obesity Pulmonary nodules Diastolic heart failure Chronic lung disease Hypoxia Panic disorder Hypertension Chronic hypercapnic respiratory failure Aortic stenosis Asthma Hypogammaglobulinemia Smoker JUANITO (obstructive sleep apnea) Elevated troponin COPD (chronic obstructive pulmonary disease) Trigeminal neuralgia Mixed hyperlipidemia Peripheral neuropathy Tobacco use disorder Mood disorder Surgical History History of esophagogastroduodenoscopy (EGD) History of colonoscopy History of lumbar discectomy History of tubal ligation History of excision of mass History of shoulder surgery Social History Social History Household Members: Spouse Household Members Other:: dog Housing: Condominium Do you presently have visiting nurse or other home services: Yes ([facility]) Alcohol intake: current Alcohol intake frequency: holidays/special occasions only Alcohol type: hard liquor Comment: Refusing Bed Alarm Patient Tobacco Use Status: Former Tobacco user Tobacco use type: Cigarette Cigarette Packs Per Day: 4 Cigarettes Per Day: 80.0 Years Smoked: 40 e-Cigarette/Vaping Use: Never Used Second Hand Smoke Exposure: No Substance Use Type: Marijuana Advance Directives: Yes Advance Directives on File: Yes Advance Directives Date on File: 03/09/23 service: No Physical Exam ED Vital Signs: Vital Signs - 24 hr 05/13/25 05:07 05/13/25 05:25 05/13/25 07:05 Temperature 98.1 F Pulse Rate 92 83 Respiratory Rate 22 H 23 H Blood Pressure 113/46 L Pulse Oximetry 100 94 Oxygen Delivery Method CPAP Nasal Cannula Oxygen Flow Rate 4 05/13/25 08:47 Temperature Pulse Rate 85 Respiratory Rate 16 Blood Pressure Pulse Oximetry 95 Oxygen Delivery Method Nasal Cannula Oxygen Flow Rate 4 BMI result Body Mass Index 42.7 Const Other: The patient is a somewhat cushingoid looking person who arrived seemingly short of breath on nickel plater CPAP. Orientation/consciousness: patient oriented x3 HENTX Other: The face is symmetrical, airway clear Eyes Other: Pupils are round equal, conjunctivae are clear, extraocular movements intact Neck Neck: Yes normal visual inspection, Yes full ROM and Yes no JVD Resp Other: Breath sounds seem markedly diminished. Quiet wheezes at the bases. Cardio Rate: regular rate Rhythm: regular rhythm Heart sounds: S1 normal heart sound present and S2 normal heart sound present GI Other: Abdomen is soft and nontender Skin Other: Skin is pale and dry Neuro General: patient oriented x3, tone normal, moves all extremities, no focal motor deficits and CN's II-XI intact bilaterally Extrem Other: 1 to 2+ edema of both lower extremities Medications Administered Discontinued Medications Generic Name Dose Route Start Last Admin Trade Name Freq PRN Reason Stop Dose Admin Albuterol Sulfate 5 mg/ 0 mg 05/13/25 05:21 05/13/25 05:24 Albuterol/Ipratropium 3 ml INHALE 05/13/25 05:22 7.5 each ONCE ONE Administration Lactated Ringer's 1,000 mls @ 999 mls/hr 05/13/25 06:30 05/13/25 06:45 Lr IV 05/13/25 07:30 Infused .Q1H1M CHAPARRO Infusion Ceftriaxone Sodium 2 gm/ 50 mls @ 100 mls/hr 05/13/25 06:45 05/13/25 08:42 Sodium Chloride IV 05/13/25 07:14 100 mls/hr ONCE ONE Administration Azithromycin 500 mg/ Sodium 250 mls @ 125 mls/hr 05/13/25 06:45 05/13/25 07:27 Chloride IV 05/13/25 08:44 125 mls/hr ONCE ONE Administration Magnesium Sulfate 2 gm in 50 mls @ 150 mls/hr 05/13/25 06:51 05/13/25 07:49 Magnesium Sulfate/H2o IV 05/13/25 07:10 Infused ONCE ONE Infusion Medical Decision Making Medical Decision Making [facility] Narrative: The patient is a 60-year-old woman with a history of COPD and, apparently CHF as well. She has been hospitalized multiple times in the last several weeks to months for breathing difficulties. She has been home for about 5 days following a rehab stay after her most recent hospitalization. She became abruptly short of breath early this morning. Paramedics felt she was wheezy and administered DuoNeb updrafts, IV methylprednisolone, and placed her on CPAP. By the time she got here she was somewhat better and we were able to keep her off positive pressure ventilation. She was given additional bronchodilator treatment. She was also given antibiotics. Her lactate is 2.2 but I think this is unlikely to represent sepsis. I think it is more likely that the elevated lactate could be from the albuterol treatments from paramedics. She does not have a fever or an elevated white count or a history highly suggestive of an acute infectious process. Nevertheless she was started on IV ceftriaxone and azithromycin. The patient seemed to stabilize but at a higher oxygen requirement than usual. She was satting 93% 5 L nasal cannula. Normally she does reasonably well at home at 3 L nasal cannula with saturations of 95-96. Chest x-ray is negative. Troponin is normal. The patient will be admitted for further care in the hospitalist service. Lab Data 05/13/25 05:35 05/13/25 05:35 Labs: Lab Results 05/13/25 05/13/25 05/13/25 Range/Units 05:35 05:36 07:14 WBC 9.3 (4.8-10.8) X10*3/uL RBC 3.58 L (4.20-5.50) X10*6/uL Hgb 10.8 L (12.0-16.0) g/dl Hct 35.0 L (37.0-47.0) % MCV 97.8 (80.0-98.0) fL MCH 30.2 (27.0-33.0) pg MCHC 30.9 L (31.0-35.0) g/dl RDW 15.0 (11.0-16.0) % Plt Count 388 (160-400) X10*3/uL MPV 8.9 L (9.4-12.3) fL Immature Gran % (Auto) 0.4 (0.0-0.4) % Neut % (Auto) 59.7 (45-73) % Lymph % (Auto) 24.8 (20-40) % [place] % (Auto) 10.0 (2-11) % Eos % (Auto) 4.7 H (0-4) % Baso % (Auto) 0.4 (0-2) % Lymph # (Auto) 2.3 (1.2-4.9) X10*3/uL [place] # (Auto) 0.9 (0.1-1.2) X10*3/uL Eos # (Auto) 0.4 (0.0-0.4) X10*3/uL Baso # (Auto) 0.0 (0.0-0.2) X10*3/uL Abs Immat Gran (auto) 0.04 H (0.00-0.03) X10*3/uL Absolute Neuts (auto) 5.5 (2.0-8.3) x10*3/uL Absolute Nucleated RBC 0.000 (0.0-0.012) X10*3/uL Nucleated RBC % (auto) 0.0 (0.0-0.2) /100WBC PT 11.1 L (11.2-13.5) SEC INR 0.9 (0.9-1.1) Sodium 142 (135-145) mmol/L Potassium 4.4 (3.3-5.1) mmol/L Chloride 105 (96-108) mmol/L Carbon Dioxide 27 (22-29) mmol/L Anion Gap 14 (12-20) BUN 12 (9-16) mg/dL Creatinine 0.70 (0.5-1.4) mg/dL Estim Creat Clear Calc 95.2 Estimated GFR > 60 Random Glucose 117 H (60-115) mg/dL Lactic Acid 1.4 2.2 H* (0.5-2.0) mmol/L Calcium 9.2 (8.4-10.2) mg/dL Magnesium 1.8 (1.6-2.6) mg/dL Total Bilirubin 0.1 (0.0-1.0) mg/dL AST 24 (5-31) U/L ALT 16 (0-31) U/L Alkaline Phosphatase 61 (39-117) U/L Troponin I High Sens 7.9 (<3.5-17.0) ng/L C-Reactive Protein 1.50 H (< or = 0.50) mg/dL NT-Pro-B Natriuret Pep 87.4 (<300) pg/mL Total Protein 6.9 (6.5-8.0) g/dL Albumin 4.0 (3.5-5.0) g/dL COVID-19 (SONAL) Negative (Negative) COVID-19 Clin Com See Note Influenza Type A (DERREK) Negative (Negative) Influenza Type B (DERREK) Negative (Negative) Influenza A & B Note See Note Independent Interpretation I performed an independent interpretation of an: EKG Interpretation: EKG at 08/17/2004 shows normal sinus rhythm at 88 beats per minute. It is a normal EKG. No change from previous. No acute ischemic findings. Discharge Plan Discharge Patient Disposition: Admitted As Inpatient Print Language: Wolof
[2025-05-13] MEDS: Albuterol Sulfate 5 MG, Albuterol/Iprat 2.5/0.5MG 3 ML 3 ML INHALE (05:24)
[2025-05-13 05:45] LABS: Hematocrit 35.0 % (37.0-47.0); Hemoglobin 10.8 g/dl (12.0-16.0); Imm Gran Abs Auto 0.04 X10*3/uL (0.00-0.03); Imm Gran Pct Auto 0.4 % (0.0-0.4); Lymphocytes Absolute Auto 2.3 X10*3/uL (1.2-4.9); MANUAL DIFF FLAG NO; Mean Corpuscular HGB Conc 30.9 g/dl (31.0-35.0); Mean Corpuscular Hemoglobin 30.2 pg (27.0-33.0); Mean Corpuscular Volume 97.8 fL (80.0-98.0); NRBC Abs Auto 0.000 X10*3/uL (0.0-0.012); NRBC Pct Auto 0.0 /100WBC (0.0-0.2); Platelet Count 388 X10*3/uL (160-400); Red Blood Count 3.58 X10*6/uL (4.20-5.50); White Blood Count 9.3 X10*3/uL (4.8-10.8)
[2025-05-13 05:59] LABS: Alanine Aminotransferase 16 U/L (0-31); Albumin Level 4.0 g/dL (3.5-5.0); Alkaline Phosphatase 61 U/L (39-117); Anion Gap 14 (12-20); Aspartate Amino Transferase 24 U/L (5-31); Blood Urea Nitrogen 12 mg/dL (9-16); Calcium 9.2 mg/dL (8.4-10.2); Carbon Dioxide 27 mmol/L (22-29); Chloride 105 mmol/L (96-108); Creatinine Clr Calc Pharmacy 95.2; Estimated Glomerular Filt Rate > 60; Magnesium 1.8 mg/dL (1.6-2.6); Potassium 4.4 mmol/L (3.3-5.1); Sodium 142 mmol/L (135-145); Total Protein 6.9 g/dL (6.5-8.0)
--- OUTSIDE RECORDS SUMMARY | 2025-05-13 06:02 | XMS_ITS | Clinical Summary ---
Author Organization [facility] Address [address] [id number] Care Team Providers Care Scagliola Mechanic Name Role Phone Antione Segura Primary Care Provider [phone] Allergies Active Allergy Reactions Criticality Noted Date [...] disorder 05/04/2017 Sacroiliitis, not elsewhere classified 7 Family History Medical History Relation Name Comments [...] Smear 1963 Pap Smear 1963 Sigmoidoscopy 1963 RSV Vaccine (60+ years old and patients) (1 - Risk 50-74 years 1-dose series) 2013 Zoster Vaccines (1 of 2) 2013 DTaP,Tdap,and Td Vaccines (1 - Tdap) 12/30/2013 12/29/2013 Alcohol/Substance Use Screening 06/14/2024 Depression Screening and Follow-Up 06/14/2024 Social Drivers of Health Annual Screening 06/14/2024 Influenza Vaccine (#1) 2025 , 07/29/2023, 02/27/2022, Additional history exists COVID-19 Vaccine ( season) 2025 07/18/2021, 10/02/2020, 09/11/2020 Mammogram 05/26/2025 05/26/2023, 05/14, 09/29/2021, Additional history exists CT Lung Cancer Screening (Baseline) 11/30/2025 11/30/2024, 08/27/2022 Basic Metabolic Panel 12/14/2025 12/14/2024 Hepatitis C Screening Completed 05/25/2019 Pneumococcal Vaccine: 50+ Years Completed 02/29/2024, 02/22/2020 Hepatitis B Vaccines Aged Out No long er eligible based on patient's age to complete this topic Procedures * Due to [place] [employer] law, this organization might not be sharing negative HIV tests. Procedure Name Priority Date/Time Associated Diagnosis Comments AMB EXTERNAL CT CHEST, OUTSI DE RESULT 11/30/2024 from Last 3 Months or Most Recently Relevant to Health Maintenance Results * Due to [place] [employer] law, this organization might not be sharing negative HIV tests. * CT Chest, Outside Result (11/30/2024) 11/30/2024 us Onbase Scan [facility] AMB EXTERNAL RESULT PROCEDURE S Final Result from Last 3 Months or Most Recently Relevant to Health Maintenance Insurance [facility] HMO/POS Care Teams Scagliola Mechanic Relationship Specialty Start Date End Date Antione Segura PA [address] [place] [phone] PCP - General Emergency Medicine 01/10/25
--- OUTSIDE RECORDS SUMMARY | 2025-05-13 06:02 | XMS_ITS | Encounter Summary ---
Author Organization [facility] Address [address] [place] [address] Phone Care Team Providers Care Cardiac Exercise Physiologist Name Role Phone Lang Germain MD Unavailable Jennifer Duke WAREHOUSE COORDINATOR Primary Care Provider Sirisha Huertas AIRCRAFT ORDNANCE SYSTEMS MECHANIC Primary Care Provider Jn Cardoza MD Unavailable Denys Henriquez MD Unavailable Liyah Patterson MD Unavailable Liyah Patterson MD Primary Care Provider [phone] Antione Segura PA-C Primary Care Provider [phone] Rhett Cortez MD Unavailable Encounter Details Date Type Department Care Team (Late st Contact Info) Description 11/27/2021 Procedure Pass [facility], [address] [place] [address] Social History Tobacco Use Types Packs/Day Years Used Date Smoking Tobacco: Every Day Cigarettes 1 43.5 Started: 11/25/1981 Smokeless Tobacco: Never Alcohol Use [...] Care Team (Late st Contact Info) Description 05/16/2025 11:20 AM EST Office Visit [facility] Internal Medicine 40 [place] [address] Antione Segura PA-C 40 [place] [address] 06/25/2025 9:30 AM EST Telemedicine [facility] Neurology [address] [place] [address] Jn Cardoza MD [address] [place] [address], 2nd [place] [address] documented as of this encounter Visit Diagnoses Not on filedocumented in this encounter Additional Health Concerns Assessment Noted Time PHQ-2 Depression Total Score: 0 05/25/20 19 9:02 AM EST documented as of this encounter Care Teams Cardiac Exercise Physiologist Relationship Specialty Start Date End Date Jennifer Duke, [place] [address] [place] [address] PCP - General Family Medicine 01/31/20 06/22/23 Sirisha Heurtas, AIRCRAFT ORDNANCE SYSTEMS MECHANIC [address] [place] [address] [email or web address] PCP - General Nurse Practitioner 06/23/23 08/03/24 Liyah Patterson MD [address] [place] [address] [email or web address] PCP - General Family Medicine 08/04/24 10/11/24 Antione Segura PA-C [address] [place] [address] [email or web address] PCP - General Physician Braid Pattern Setter 10/12/24 Lang Germain MD [address] [place] [address] [email or web address] Insurance Assigned Provider 09/18/23 02/19/24 Jn Cardoza MD [address] [place] [address], 2nd [place] [address] [email or web address] Neurology 02/03/24 Denys Henriquez MD [address] [place] [address] [place] [address] Pulmonary Disease 02/03/24 Liyah Patterson MD [address] [place] [address] [email or web address] Insurance Assigned Provider 02/19/24 01/20/25 Rhett Cortez MD [address] [place] [address] [email or web address] Insurance Assigned Provider 01/20/25 documented as of this encounter Additional Source Comments The information contained in this document represents components of the legal health record. It is not the complete legal health record.[facility]
--- OUTSIDE RECORDS SUMMARY | 2025-05-13 06:02 | XMS_ITS | Encounter Summary ---
Author Organization [facility] Address [address] [address] Phone Care Team Providers Care Supervisor Network Control Operators Name Role Phone Jn Cardoza MD Unavailable Denys Henriquez MD Unavailable Antione Segura PA-C Primary Care Provider Rhett Cortez MD Unavailable Encounter Details Date Type Department Care Team (Late st Contact Info) Description 02/09/2025 Home Health Resumption of Care Planning [facility] [address] [place] [address] Koki Simons RN [address] [place] [address] [email or web address] Social History Tobacco Use Types Packs/Day Years [...] Description 05/16/2025 11:20 AM EST Office Visit [facility] Internal Medicine [address] [place] [address] Antione Segura PA-C 40 [place] [address] 06/25/2025 9:30 AM EST Telemedicine [facility] Neurology [address] [place] [address] Jn Cardoza MD [address] [place] [address] documented as of this encounter Visit Diagnoses Not on filedocumented in this encounter Additional Health Concerns Assessment Noted Time PHQ-9 Depression Total Score: 15 025 9:44 AM EDT PHQ-2 Depression Total Score: 4 02/01/20 25 9:44 AM EDT documented as of this encounter Care Teams Supervisor Network Control Operators Relationship Specialty Start Date End Date Antione Segura PA-C [address] [place] [address] PCP - General Physician Tray Checker 10/12/24 Jn Cardoza MD [address] [place] [address] Neurology 02/03/24 Denys Henriquez MD [address] [place] [address] [place] [address] Pulmonary Disease 02/03/24 Rhett Cortez MD [address] [place] [address] [email or web address] Insurance Assigned Provider 01/20/25 documented as of this encounter Additional Source Comments The information contained in this document represents components of the legal health record. It is not the complete legal health record.[facility]
--- OUTSIDE RECORDS SUMMARY | 2025-05-13 06:02 | XMS_ITS | Encounter Summary ---
Author Organization [facility] Address [address] [place] [address] [place] [address] Phone Care Team Providers Care Transport Truck Driver Name Role Phone Lang Germain MD Unavailable [phone] Jennifer Duke CARRY OUT CLERK AND SHELF STOCKER Primary Care Provider Sirisha Huertas CASH CHECKER Primary Care Provider Jn Cardoza MD Unavailable Denys Henriquez MD Unavailable Liyah Patterson MD Unavailable Liyah Patterson MD Primary Care Provider Antione Segura PA-C Primary Care Provider [phone] Rhett Cortez MD Unavailable Encounter Details Date Type Department Care Team (Late st Contact Info) Description 11/11/2021 Transcribe Orders [facility] PFT [facility] [address] [place] [address] Jennifer Duke, CARRY OUT CLERK AND SHELF STOCKER 26 [facility] [address] [place] [address] Social History Tobacco Use Types Packs/Day Years [...] Description 05/16/2025 11:20 AM EST Office Visit [facility] Internal Medicine 40 [place] [address] Antione Segura PA-C 40 [place] [address] [email or web address] 06/25/2025 9:30 AM EST Telemedicine [facility] Neurology 22 [place] [address] Jn Cardoza MD 22 [facility] [place] [address] [email or web address] documented as of this encounter Visit Diagnoses Not on filedocumented in this encounter Additional Health Concerns Assessment Noted Time PHQ-2 Depression Total Score: 0 05/25/20 19 9:02 AM EST documented as of this encounter Care Teams Transport Truck Driver Relationship Specialty Start Date End Date Jennifer Duke NP [address] [place] [address] [email or web address] PCP - General Family Medicine 01/31/20 06/22/23 Sirisha Huertas FNP 15 [facility] [address]. [address] [place] [address] [email or web address] PCP - General Nurse Practitioner 06/23/23 08/03/24 Liyah Patterson MD [address] [place] [address] [email or web address] PCP - General Family Medicine 08/04/24 10/11/24 Antione Segura PA-C [address] [place] [address] [email or web address] PCP - General Physician Certified Histologic Technician 10/12/24 Lang Germain MD [address] [place] [address] [email or web address] Insurance Assigned Provider 09/18/23 02/19/24 Jn Cardoza MD [address] [place] [address], 2nd [place] [address] [email or web address] Neurology 02/03/24 Denys Henriquez MD [address] [place] [address] [place] [address] Pulmonary Disease 02/03/24 Liyah Patterson MD [address] [place] [address] [email or web address] Insurance Assigned Provider 02/19/24 01/20/25 Rhett Cortez MD [address] [place] [address] [email or web address] Insurance Assigned Provider 01/20/25 documented as of this encounter Additional Source Comments The information contained in this document represents components of the legal health record. It is not the complete legal health record.[facility]
--- OUTSIDE RECORDS SUMMARY | 2025-05-13 06:02 | XMS_ITS | Encounter Summary ---
Author Organization [facility] Address [address] [place] [address] Phone Care Team Providers Care Whitewater Rafting Guide Name Role Phone Lang Germain MD Unavailable Jennifer Duke PLEATING MACHINE OPERATOR Primary Care Provider Sirisha Huertas CULTURAL HISTORIAN Primary Care Provider Jn Cardoza MD Unavailable Denys Henriquez MD Unavailable [phone] Liyah Patterson MD Unavailable Liyah Patterson MD Primary Care Provider [phone] Antione Segura PA-C Primary Care Provider [phone] Rhett Cortez MD Unavailable Encounter Details Date Type Department Care Team (Late st Contact Info) Description 06/30/2022 Procedure Pass [facility], Ct Scan - [address] [address] Social History Tobacco Use Types Packs/Day Years Used Date Smoking Tobacco: Every Day Cigarettes 0.7 43.5 Started: 11/25/1981 Smokeless Tobacco: Never Alcohol [...] Description 05/16/2025 11:20 AM EST Office Visit [facility] Internal Medicine 40 [place] [address] Antione Segura PA-C 40 [place] [address] 06/25/2025 9:30 AM EST Telemedicine [facility] Neurology 22 [place] [address] Jn Cardoza MD 22 [facility], 2nd [place] [address] [email or web address] documented as of this encounter Visit Diagnoses Not on filedocumented in this encounter Additional Health Concerns Assessment Noted Time PHQ-9 Depression Total Score: 18 023 8:53 AM EST PHQ-2 Depression Total Score: 6 06/26/19 23 8:53 AM EST documented as of this encounter Care Teams Whitewater Rafting Guide Relationship Specialty Start Date End Date Jennifer Duke, [place] [address] [place] [address] PCP - General Family Medicine 01/31/20 06/22/23 Sirisha Huertas FNP 15 [facility] [address] [place] [address] PCP - General Nurse Practitioner 06/23/23 08/03/24 Liyah Patterson MD [address] [place] [address] [email or web address] PCP - General Family Medicine 08/04/24 10/11/24 Antione Segura PA-C [address] [place] [address] [email or web address] PCP - General Physician Diversional Therapist'S Assistant 10/12/24 Lang Germain MD [address] [place] [address] Insurance Assigned Provider 09/18/23 02/19/24 Jn Cardoza MD 22 [facility], 2nd [place] [address] [email or web address] Neurology 02/03/24 Denys Henriquez MD [address] [place] [address] [place] [address] Pulmonary Disease 02/03/24 Liyah Patterson MD [address] [place] [address] [email or web address] Insurance Assigned Provider 02/19/24 01/20/25 Rhett Cortez MD [address] [place] [address] Insurance Assigned Provider 01/20/25 documented as of this encounter Additional Source Comments The information contained in this document represents components of the legal health record. It is not the complete legal health record.[facility]
--- OUTSIDE RECORDS SUMMARY | 2025-05-13 06:03 | XMS_ITS | Encounter Summary ---
Author Organization [facility] Address [address] [place] [address] Phone Care Team Providers Care Finished Stock Inspector Name Role Phone Jn Cardoza MD Unavailable Denys Henriquez MD Unavailable Antione Segura PA-C Primary Care Provider Rhett Cortez MD Unavailable Encounter Details Date Type Department Care Team (Late st Contact Info) Description 05/07/2025 Telephone [facility] Internal Medicine 40 [place], [place] [phone] Antione Segura PA-C 40 [place], [place] [phone] [email or web address] Social History Tobacco Use Types Packs/Day Years [...] high school, GED, job training, learning the Gabonese language, technical skills, or developing parenting skills)? [...] Description 05/16/2025 11:20 AM EST Office Visit [facility] Internal Medicine 40 [place] [address] Antione Segura PA-C 40 [place] [address] 06/25/2025 9:30 AM EST Telemedicine [facility] Neurology 22 [place] [address] Jn Cardoza MD [address] [place] [address] documented as of this encounter Visit Diagnoses Not on filedocumented in this encounter Additional Health Concerns Assessment Noted Time PHQ-9 Depression Total Score: 23 025 3:04 PM EDT PHQ-2 Depression Total Score: 5 03/21/20 25 3:04 PM EDT documented as of this encounter Care Teams Finished Stock Inspector Relationship Specialty Start Date End Date Antione Segura PA-C [address] [place] [address] PCP - General Physician Internet Marketing Coordinator 10/12/24 Jn Cardoza MD [address] [place] [address] Neurology 02/03/24 Denys Henriquez MD [address] [place] [address] [place] [address] Pulmonary Disease 02/03/24 Rhett Cortez MD 40 [place] [address] [email or web address] Insurance Assigned Provider 01/20/25 documented as of this encounter Additional Source Comments The information contained in this document represents components of the legal health record. It is not the complete legal health record.[facility]
--- OUTSIDE RECORDS SUMMARY | 2025-05-13 06:03 | XMS_ITS | Encounter Summary ---
Author Organization [facility] Address [address] [address] Phone Care Team Providers Care Quality Process Engineer Name Role Phone Jn Cardoza MD Unavailable Denys Henriquez MD Unavailable Antione Segura PA-C Primary Care Provider Rhett Cortez MD Unavailable Encounter Details Date Type Department Care Team (Late st Contact Info) Description 05/10/2025 Home Care Visit [facility] [address] [place] [phone] Krista Iniguez RN [address] [place], [place] [phone] [email or web address] CASE COMMUNICATION Social History Tobacco Use Types [...] high school, GED, job training, learning the Azeri language, technical skills, or developing parenting skills)? [...] Description 05/16/2025 11:20 AM EST Office Visit [facility] Internal Medicine 40 [place] [address] Antione Segura PA-C 40 [place] [address] 06/25/2025 9:30 AM EST Telemedicine [facility] Neurology 22 [place] [address] Jn Cardoza MD [address] [place] [address] documented as of this encounter Visit Diagnoses Not on filedocumented in this encounter Additional Health Concerns Assessment Noted Time PHQ-9 Depression Total Score: 23 025 3:04 PM EDT PHQ-2 Depression Total Score: 5 03/21/20 25 3:04 PM EDT documented as of this encounter Care Teams Quality Process Engineer Relationship Specialty Start Date End Date Antione Segura PA-C [address] [place] [address] PCP - General Physician Pilates Coordinator 10/12/24 Jn Cardoza MD [address] [place] [address] Neurology 02/03/24 Denys Henriquez MD [address] [place] [address] [place] [address] Pulmonary Disease 02/03/24 Rhett Cortez MD [address] [place] [address] [email or web address] Insurance Assigned Provider 01/20/25 documented as of this encounter Additional Source Comments The information contained in this document represents components of the legal health record. It is not the complete legal health record.[facility]
--- OUTSIDE RECORDS SUMMARY | 2025-05-13 06:03 | XMS_ITS | Encounter Summary ---
Author Organization [facility] Address [address] [address] Phone Care Team Providers Care Hris Administrator Name Role Phone Jn Cardoza MD Unavailable Denys Henriquez MD Unavailable Liyah Patterson MD Unavailable Antione Segura-C Primary Care Provider [phone] Rhett Cortez MD Unavailable Encounter Details Date Type Department Care Team (Late st Contact Info) Description 12/06/2024 Home Health Resumption of Care Planning [facility] 30 [place] [address] Diana Torres, RN [address] [place] [address] [email or web address] Social History Tobacco Use Types Packs/Day Years [...] Description 05/16/2025 11:20 AM EST Office Visit [facility] Internal Medicine 40 [place] [address] Antione Segura PA-C 40 [place] [address] 06/25/2025 9:30 AM EST Telemedicine [facility] Neurology 22 [place] [address] Jn Cardoza MD [address] [place] [address] documented as of this encounter Visit Diagnoses Not on filedocumented in this encounter Additional Health Concerns Assessment Noted Time PHQ-9 Depression Total Score: 21 025 12:31 PM EDT PHQ-2 Depression Total Score: 6 10/13/19 25 12:31 PM EDT documented as of this encounter Care Teams Hris Administrator Relationship Specialty Start Date End Date Antione Segura PA-C [address] [place] [address] PCP - General Physician [place] Fishing Crew Member 10/12/24 Jn Cardoza MD [address] [place] [address] Neurology 02/03/24 Denys Henriquez MD [address] [place] [address] [place] [address] Pulmonary Disease 02/03/24 Liyah Patterson MD [address] [place] [address] [email or web address] Insurance Assigned Provider 02/19/24 01/20/25 Rhett Cortez MD [address] [place] [address] [email or web address] Insurance Assigned Provider 01/20/25 documented as of this encounter Additional Source Comments The information contained in this document represents components of the legal health record. It is not the complete legal health record.[facility]
--- OUTSIDE RECORDS SUMMARY | 2025-05-13 06:03 | XMS_ITS | Encounter Summary ---
Author Organization [facility] Address [address] [place] [address] Phone Care Team Providers Care Training Technician Name Role Phone Jn Cardoza MD Unavailable Denys Henriquez MD Unavailable Antione Segura PA-C Primary Care Provider Rhett Cortez MD Unavailable Encounter Details Date Type Department Care Team (Late st Contact Info) Description 04/16/2025 Orders Only [facility] Internal Medicine [address] [place] [address] Provider, MD Omar [address] [place] [address] Social History Tobacco Use Types Packs/Day [...] Description 05/16/2025 11:20 AM EST Office Visit [facility] Internal Medicine 40 [place] [address] Antione Segura PA-C 40 [place] [address] 06/25/2025 9:30 AM EST Telemedicine [facility] Neurology 22 [place] [address] Jn Cardoza MD 22 [facility], [address] [place] [address] documented as of this encounter Procedures Procedure Name Priority Date/Time Associated Diagnosis Comments OUTSIDE IMAGING Routine 04/16/2025 7:39 AM EST documented in this encounter Results * Outside Imaging Report Only (04/16/2025 7:39 AM EST) us Historical Provider IMMadyson XR CHEST Final Res ult documented in this encounter Visit Diagnoses Not on filedocumented in this encounter Additional Health Concerns Assessment Noted Time PHQ-9 Depression Total Score: 23 025 3:04 PM EDT PHQ-2 Depression Total Score: 5 03/21/20 25 3:04 PM EDT documented as of this encounter Care Teams Training Technician Relationship Specialty Start Date End Date Antione Segura PA-C 40 [place] [address] PCP - General Physician Payment Collector 10/12/24 Jn Cardoza MD [address] [place] [address], 2nd [place] [address] [email or web address] Neurology 02/03/24 Denys Henriquez MD [address] [place] [address] [place] [address] Pulmonary Disease 02/03/24 Rhett Cortez MD [address] [place] [address] [email or web address] Insurance Assigned Provider 01/20/25 documented as of this encounter Additional Source Comments The information contained in this document represents components of the legal health record. It is not the complete legal health record.[facility]
--- OUTSIDE RECORDS SUMMARY | 2025-05-13 06:03 | XMS_ITS | Encounter Summary ---
Author Organization [facility] Address [address] [place] [address] Phone Care Team Providers Care Inspector Plug Seam Name Role Phone Jn Cardoza MD Unavailable Denys Henriquez MD Unavailable [phone] Antione Segura-C Primary Care Provider [phone] Rhett Cortez MD Unavailable Reason for Visit * Reason Onset Date Comments TCM Visit 05/03/2025 Unable to schedu le Encounter Details Date Type Department Care Team (Late st Contact Info) Description 05/03/2025 Telephone [facility] Internal Medicine [address] [place], [place] [phone] Antione Segura, PADimitri [address] [place], [place] [phone] [email or web address] TCM Visit (Unable to schedule) Social History Tobacco Use Types Packs/Day Years [...] high school, GED, job training, learning the Malay language, technical skills, or developing parenting skills)? [...] Progress Notes * Radha Haque RN - 05/11/2025 3:50 PM EST Post Discharge Summary: Post discharge call documentation: Is a post discharge call required?: Yes Please indicate post discharge status: 1st attempt not reached General: Discharge information: Discharge date: 05/09/25 Discharge from: Claudia carrillo Reason for hospitalization: SOB Safety and self care: Assistive devices/equipment and home services: Medication review: Follow up/conclusion: Was a follow up appointment scheduled with the patient's PCP office?: Yes Date of next appointment with the PCP: 05/16/25 * Georgina Krause - 05/07/2025 10:08 AM EST Patient scheduled for 05/16/2025. Need [facility] rec? Records requested. * Vanesa Macias - 05/07/2025 10:01 AM EST Pt called in asking for F/U from discharge 05/09/2025 Central Support Industrial Waste Treatment Technician (Please do not reply to this user; this inbox is not monitored.) Thank you. * Georgina Krause - 05/03/2025 4:11 PM EST Attempted to call number provided. Line rings then disconnects * DiehlMita rico - 05/03/2025 4:00 PM EST [facility] PEN Top Smart Phrases: Transitional Care Management New Patient: YES/NO: no Hospitalization Name:Claudia Carrillo Discharge Date: 05/09 Reason for Visit+ Diagnosis: SOB Is the discharge summary in patient chart:YES/NO: no If not did you inform the patient/patient advocate to fax it to the office: YES/NO: yes Please inform the patient/patient advocate to fax and bring a copy to the appt. Appointment Date: n/a Is the appt: Awareness: Appt need to be schedule with in 2 to 14 calendar days from discharge date Additional Note (if applicable): [facility] Call Center CSS Agent (Please do not reply to this user, as this inbox is not monitored. Thank you.) Thank you. documented in this encounter Plan of Treatment Upcoming Encounters Date Type Department Care Team (Late st Contact Info) Description 05/16/2025 11:20 AM EST Office Visit [facility] Internal Medicine [address] [place] [address] Antione Segura PA-C [address] [place] [address] [email or web address] 06/25/2025 9:30 AM EST Telemedicine [facility] Neurology [address] [place] [address] Jn Cardoza MD 22 [facility], 2nd [place] [address] [email or web address] documented as of this encounter Visit Diagnoses Not on filedocumented in this encounter Additional Health Concerns Assessment Noted Time PHQ-9 Depression Total Score: 23 025 3:04 PM EDT PHQ-2 Depression Total Score: 5 03/21/20 25 3:04 PM EDT documented as of this encounter Care Teams Inspector Plug Seam Relationship Specialty Start Date End Date Antione Segura PA-C [address] [place] [address] [email or web address] PCP - General Physician Blue Leather Setter 10/12/24 Jn Cardoza MD 22 [facility], 2nd [place] [address] [email or web address] Neurology 02/03/24 Denys Henriquez MD [address] [place] [address] [place] [address] Pulmonary Disease 02/03/24 Rhett Cortez MD [address] [place] [address] [email or web address] Insurance Assigned Provider 01/20/25 documented as of this encounter Additional Source Comments The information contained in this document represents components of the legal health record. It is not the complete legal health record.[facility]
--- OUTSIDE RECORDS SUMMARY | 2025-05-13 06:03 | XMS_ITS | Encounter Summary ---
Author Organization [facility] Address [address] [place] [address] Phone Care Team Providers Care Pasteurizing Machine Operator Name Role Phone Lang Germain MD Unavailable [phone] Jennifer Duke POURER CRANE LADLE Primary Care Provider Sirisha Huertas LCSW Primary Care Provider Jn Cardoza MD Unavailable Denys Henriquez MD Unavailable Liyah Patterson MD Unavailable Liyah Patterson MD Primary Care Provider [phone] Antione Segura PA-C Primary Care Provider Rhett Cortez MD Unavailable Encounter Details Date Type Department Care Team (Late st Contact Info) Description 05/06/2021 Procedure Pass [facility], [address] [address] Social History Tobacco Use Types Packs/Day Years [...] Description 05/16/2025 11:20 AM EST Office Visit [facility] Internal Medicine [address] [place] [address] Antione Segura PA-C 40 [place] [address] 06/25/2025 9:30 AM EST Telemedicine [facility] Neurology [address] [place] [address] Jn Cardoza MD [address] [place] [address], 2[address] [place] [address] documented as of this encounter Visit Diagnoses Not on filedocumented in this encounter Additional Health Concerns Assessment Noted Time PHQ-2 Depression Total Score: 0 05/25/20 9:02 AM EST documented as of this encounter Care Teams Pasteurizing Machine Operator Relationship Specialty Start Date End Date Jennifer Duke NP [address] [place] [address] PCP - General Family Medicine 01/31/20 06/22/23 Sirisha Huertas FNP [address] [place] [address] PCP - General Nurse Practitioner 06/23/23 08/03/24 Liyah Patterson MD [address] [address] PCP - General Family Medicine 08/04/24 10/11/24 Antione Segura PA-C [address] [place] [address] [email or web address] PCP - General Physician Tape Machine Tailer 10/12/24 Lang Germain MD [address] [place] [address] Insurance Assigned Provider 09/18/23 02/19/24 Jn Cardoza MD 22 [facility], 2nd [place] [address] Neurology 02/03/24 Denys Henriquez MD [address] [place] [address] [place] [address] Pulmonary Disease 02/03/24 Liyah Patterson MD [address] [place] [address] Insurance Assigned Provider 02/19/24 01/20/25 Rhett Cortez MD [address] [place] [address] Insurance Assigned Provider 01/20/25 documented as of this encounter Additional Source Comments The information contained in this document represents components of the legal health record. It is not the complete legal health record.[facility]
--- OUTSIDE RECORDS SUMMARY | 2025-05-13 06:03 | XMS_ITS | Encounter Summary ---
Author Organization [facility] Address [address] [place] [address] Phone Care Team Providers Care Central Sterile Technician Name Role Phone Jn Cardoza MD Unavailable Denys Henriquez MD Unavailable Antione SeguraC Primary Care Provider [phone] Rhett Cortez MD Unavailable Reason for Visit * Reason Onset Date Comments TCM Visit 04/10/2025 Needs appt Encounter Details Date Type Department Care Team (Late st Contact Info) Description 04/10/2025 Telephone [facility] Internal Medicine [address] [place], [place] [phone] Antione Segura PA-C 40 [place], [place] [phone] [email or web address] TCM Visit (Needs appt ) Social History [...] make today's appt has been read[facility]ation of COPD * Georgina Krause [...] office and schedule a TCM visit. * DeriksherlynVanesa - 04/10/2025 1:59 PM EDT [facility] PEN Top Smart Phrases: Transitional Care Management New Patient: YES/NO: no Hospitalization Name:[facility] Discharge Date:04/09/2025 Reason for Visit+ Diagnosis: pt [...] from discharge date Additional Note (if applicable): [facility] Call Center CSS Agent (Please do not reply to this user, as this inbox is not monitored. Thank you.) Thank you. documented in this encounter Plan of Treatment Upcoming Encounters Date Type Department Care Team (Late st Contact Info) Description 05/16/2025 11:20 AM EST Office Visit [facility] Internal Medicine [address] [place] [address] Antione Segura PA-C 40 [place] [address] 06/25/2025 9:30 AM EST Telemedicine [facility] Neurology [address] [place] [address] [place] [address] Jn Cardoza MD 22 [facility], 2nd [place] [address] [email or web address] documented as of this encounter Visit Diagnoses Not on filedocumented in this encounter Additional Health Concerns Assessment Noted Time PHQ-9 Depression Total Score: 23 025 3:04 PM EDT PHQ-2 Depression Total Score: 5 03/21/20 25 3:04 PM EDT documented as of this encounter Care Teams Central Sterile Technician Relationship Specialty Start Date End Date Antione Segura PA-C 40 [place] [address] PCP - General Physician Cissp 10/12/24 Jn Cardoza MD 22 [facility], 2nd [place] [address] Neurology 02/03/24 Denys Henriquez MD [address] [place] [address] [place] [address] Pulmonary Disease 02/03/24 Rhett Cortez MD 40 [place] [address] [email or web address] Insurance Assigned Provider 01/20/25 documented as of this encounter Additional Source Comments The information contained in this document represents components of the legal health record. It is not the complete legal health record.[facility]
--- OUTSIDE RECORDS SUMMARY | 2025-05-13 06:03 | XMS_ITS | Encounter Summary ---
Author Organization [facility] Address [address] [facility] [address] [place] [address] Phone Care Team Providers Care Engineer Operations And Maintenance Name Role Phone Jn Cardoza MD Unavailable Denys Henriquez MD Unavailable Antione Segura PA-C Primary Care Provider Rhett Cortez MD Unavailable Encounter Details Date Type Department Care Team (Late st Contact Info) Description 05/12/2025 Home Care Visit [facility] [address] [place] [address] Maritza Calix, HUA [address] [place], [place] [phone] [email or web address] CASE COMMUNICATION Social History Tobacco Use Types [...] high school, GED, job training, learning the Nepali language, technical skills, or developing parenting skills)? [...] Description 05/16/2025 11:20 AM EST Office Visit [facility] Internal Medicine 40 [place] [address] Antione Segura PA-C 40 [place] [address] 06/25/2025 9:30 AM EST Telemedicine [facility] Neurology 22 [place] [address] nJ Cardoza MD [address] [place] [address] [email or web address] documented as of this encounter Visit Diagnoses Not on filedocumented in this encounter Additional Health Concerns Assessment Noted Time PHQ-9 Depression Total Score: 9 05/11/20 25 6:24 PM EST PHQ-2 Depression Total Score: 2 05/11/20 25 6:24 PM EST documented as of this encounter Care Teams Engineer Operations And Maintenance Relationship Specialty Start Date End Date Antione Segura PA-C [address] [place] [address] PCP - General Physician Marine Rigger 10/12/24 Jn Cardoza MD [address] [place] [address] Neurology 02/03/24 Denys Henriquez MD [address] [place] [address] [place] [address] Pulmonary Disease 02/03/24 Rhett Cortez MD 40 [place] [address] [email or web address] Insurance Assigned Provider 01/20/25 documented as of this encounter Additional Source Comments The information contained in this document represents components of the legal health record. It is not the complete legal health record.[facility]
--- OUTSIDE RECORDS SUMMARY | 2025-05-13 06:03 | XMS_ITS | Encounter Summary ---
Author Organization [facility] Address [address] [place] [address] Phone Care Team Providers Care Front End Java Developer Name Role Phone Lang Germain MD Unavailable [phone] Jennifer Duke MARINE EQUIPMENT PRESERVATION INSPECTOR Primary Care Provider Sirisha Huertas CONCRETE LAYER Primary Care Provider Jn Cardoza MD Unavailable Denys Henriquez MD Unavailable Liyah Patterson MD Unavailable Liyah Patterson MD Primary Care Provider [phone] Antione Sgeura PA-C Primary Care Provider Rhett Cortez MD Unavailable Encounter Details Date Type Department Care Team (Late st Contact Info) Description 09/01/2021 Procedure Pass [facility], [address] [address] Social History Tobacco Use Types Packs/Day Years [...] Description 05/16/2025 11:20 AM EST Office Visit [facility] Internal Medicine [address] [place] [address] Antione Segura PA-C 40 [place] [address] [email or web address] 06/25/2025 9:30 AM EST Telemedicine [facility] Neurology [address] [place] [address] Jn Cardoza MD [address] [place] [address], 2nd [place] [address] [email or web address] documented as of this encounter Visit Diagnoses Not on filedocumented in this encounter Additional Health Concerns Assessment Noted Time PHQ-2 Depression Total Score: 0 05/25/20 9:02 AM EST documented as of this encounter Care Teams Front End Java Developer Relationship Specialty Start Date End Date Jennifer Duke NP [address] [place] [address] [email or web address] PCP - General Family Medicine 01/31/20 06/22/23 Sirisha Huertas FNP [address] [place] [address] [email or web address] PCP - General Nurse Practitioner 06/23/23 08/03/24 Liyah Patterson MD [address] [address] [email or web address] PCP - General Family Medicine 08/04/24 10/11/24 Antione Segura PA-C [address] [place] [address] PCP - General Physician Bag Press Operator 10/12/24 Lang Germain MD [address] [place] [address] Insurance Assigned Provider 09/18/23 02/19/24 Jn Cardoza MD 22 [facility], 2nd [place] [address] [email or web address] Neurology 02/03/24 Denys Henriquez MD [address] [place] [address] [place] [address] Pulmonary Disease 02/03/24 Liyah Patterson MD [address] [place] [address] [email or web address] Insurance Assigned Provider 02/19/24 01/20/25 Rhett Cortez MD [address] [place] [address] Insurance Assigned Provider 01/20/25 documented as of this encounter Additional Source Comments The information contained in this document represents components of the legal health record. It is not the complete legal health record.[facility]
--- OUTSIDE RECORDS SUMMARY | 2025-05-13 06:03 | XMS_ITS | Encounter Summary ---
Author Organization [facility] Address [address] [place] [address] Phone Care Team Providers Care Xerox Machine Operator Name Role Phone Jn Cardoza MD Unavailable Denys Henriquez MD Unavailable Antione Segura PA-C Primary Care Provider [phone] Rhett Cortez MD Unavailable Encounter Details Date Type Department Care Team (Late st Contact Info) Description 03/28/2025 Procedure Pass [facility], [facility] - [address] [address] Social History Tobacco Use Types Packs/Day Years [...] Description 05/16/2025 11:20 AM EST Office Visit [facility] Internal Medicine 40 [place] [address] Antione Segura PA-C 40 [place] [address] [email or web address] 06/25/2025 9:30 AM EST Telemedicine [facility] Neurology [address] [place] [address] Jn Cardoza MD [address] [place] [address] documented as of this encounter Visit Diagnoses Not on filedocumented in this encounter Additional Health Concerns Assessment Noted Time PHQ-9 Depression Total Score: 23 025 3:04 PM EDT PHQ-2 Depression Total Score: 5 03/21/20 25 3:04 PM EDT documented as of this encounter Care Teams Xerox Machine Operator Relationship Specialty Start Date End Date Antione Segura PA-C [address] [place] [phone] [email or web address] PCP - General Physician Radial Router Operator 10/12/24 Jn Cardoza MD [address] [place] [address] Neurology 02/03/24 Denys Henriquez MD [address] [place] [address] [place] [address] Pulmonary Disease 02/03/24 Rhett Cortez MD 40 [place] [address] [email or web address] Insurance Assigned Provider 01/20/25 documented as of this encounter Additional Source Comments The information contained in this document represents components of the legal health record. It is not the complete legal health record.[facility]
--- OUTSIDE RECORDS SUMMARY | 2025-05-13 06:03 | XMS_ITS | Encounter Summary ---
Author Organization [facility] Address [address] [place] [address] Phone Care Team Providers Care Utility Worker [place] Name Role Phone Charbel Webber MD Unavailable Alverto Gandara MD Unavailable Maikel Rawls MD Unavailable Lang Germain MD Unavailable Jennifer Duke PLOW SHAKER Primary Care Provider Lang Germain MD Primary Care Provider Jennifer Duke PLOW SHAKER Unavailable [phone] Jennifer Duke PLOW SHAKER Primary Care Provider Lang Germain MD Primary Care Provider Jennifer Duke PLOW SHAKER Primary Care Provider Sirisha Huertas COAL SAMPLE TESTER Primary Care Provider [phone] Jn Cardoza MD Unavailable Denys Henriquez MD Unavailable Liyah Patterson MD Unavailable Liyah Patterson MD Primary Care Provider Antione Segura PA-C Primary Care Provider Rhett Cortez MD Unavailable Encounter Details Date Type Department Care Team (Late Contact Info) Description 03/20/2019 Telephone [facility] Internal Medicine [address] [place] [address] Jennifer Duke NP [address] [address] Social History Tobacco Use Types Packs/Day Years Used Date Smoking Tobacco: Every Day Cigarettes 0.5 43.5 Started: 11/25/1981 Smokeless Tobacco: Current Alcohol Use [...] Description 05/16/2025 11:20 AM EST Office Visit [facility] Internal Medicine 40 [place] [address] nAtione Segura PA-C 40 [place] [address] 06/25/2025 9:30 AM EST Telemedicine [facility] Neurology [address] [place] [address] Jn Cardoza MD 22 [facility], 2nd [place] [address] documented as of this encounter Visit Diagnoses Not on filedocumented in this encounter Additional Health Concerns Assessment Noted Time PHQ-2 Depression Total Score: 0 11/18/19 19 2:05 PM EDT documented as of this encounter Care Teams Utility Worker [place] Relationship Specialty Start Date End Date Jennifer Duke, PLOW SHAKER [address] [place] [address] [email or web address] PCP - General Family Medicine 12/14/18 11/12/19 Lang Germain MD [address] [place] [address] [email or web address] PCP - General Internal Medicine 11/13/19 12/03/19 Jennifer Duke NP [address] [place] [address] [email or web address] PCP - General Family Medicine 12/04/19 01/23/20 Lang Germain MD [address] [place] [address] [email or web address] PCP - General Internal Medicine 01/24/20 01/30/20 Jennifer Duke NP [address] [place] [address] [email or web address] PCP - General Family Medicine 01/31/20 06/22/23 Sirisha Huertas FNP [address] [address] [email or web address] PCP - General Nurse Practitioner 06/23/23 08/03/24 Liyah Patterson MD [address] [address] [email or web address] PCP - General Family Medicine 08/04/24 10/11/24 Antione Segura PA-C [address] [place] [address] PCP - General Physician Manager Work 10/12/24 Charbel Webber MD [address] [place] [address], [address] [place] [address] [email or web address] Historical LMR Provider 04/01/17 0 Alverto Gandara MD [address] [place] [address] [email or web address] Historical LMR Provider 04/01/17 12/03/19 Maikel Rawls MD [address] [place] [address] [email or web address] Historical LMR Provider 04/01/17 12/03/19 Lang Germain MD [address] [place] [address] [email or web address] Insurance Assigned Provider 09/18/23 02/19/24 Jennifer Duke NP [address] [place] [address] [email or web address] Nurse Practitioner Family Medicine 11/13/19 01/30/20 Jn Cardoza MD [address] [place] [address], [address] [place] [address] [email or web address] Neurology 02/03/24 Denys Henriquez MD [address] [place] [address] [place] [address] Pulmonary Disease 02/03/24 Liyah Patterson MD [address] [place] [address] [email or web address] Insurance Assigned Provider 02/19/24 01/20/25 Rhett Cortez MD [address] [place] [address] [email or web address] Insurance Assigned Provider 01/20/25 documented as of this encounter Additional Source Comments The information contained in this document represents components of the legal health record. It is not the complete legal health record.[facility]
--- OUTSIDE RECORDS SUMMARY | 2025-05-13 06:03 | XMS_ITS | Encounter Summary ---
Author Organization [facility] Address [address] [address] Phone Care Team Providers Care Humidifier Operator Name Role Phone Jn Cardoza MD Unavailable Denys Henriquez MD Unavailable Antione Segura PA-C Primary Care Provider Rhett Cortez MD Unavailable Encounter Details Date Type Department Care Team (Late st Contact Info) Description 04/15/2025 Home Health Resumption of Care Planning [facility] [address] [place] [address] Dennise Rodriguez, HUA [address] [place] [address] [email or web address] Social History Tobacco Use [...] high school, GED, job training, learning the [place]an language, technical skills, or developing parenting skills)? [...] Description 05/16/2025 11:20 AM EST Office Visit [facility] Internal Medicine 40 [place] [address] Antione Segura PA-C [address] [place] [address] 06/25/2025 9:30 AM EST Telemedicine [facility] Neurology [address] [place] [address] Jn Cardoza MD [address] [place] [address] documented as of this encounter Visit Diagnoses Not on filedocumented in this encounter Additional Health Concerns Assessment Noted Time PHQ-9 Depression Total Score: 23 025 3:04 PM EDT PHQ-2 Depression Total Score: 5 03/21/20 25 3:04 PM EDT documented as of this encounter Care Teams Humidifier Operator Relationship Specialty Start Date End Date Antione Segura PA-C [address] [place] [address] PCP - General Physician Side Seam Machine Operator 10/12/24 Jn Cardoza MD [address] [place] [address] Neurology 02/03/24 Denys Henriquez MD NPI: [id number] [place] [address] [place] [address] Pulmonary Disease 02/03/24 Rhett Cortez MD 40 [place] [address] [email or web address] Insurance Assigned Provider 01/20/25 documented as of this encounter Additional Source Comments The information contained in this document represents components of the legal health record. It is not the complete legal health record.[facility]
--- OUTSIDE RECORDS SUMMARY | 2025-05-13 06:03 | XMS_ITS | Encounter Summary ---
Author Organization [facility] Address [address] [address] Phone Care Team Providers Care Disulfurizer Tender Name Role Phone Jn Cardoza MD Unavailable Denys Henriquez MD Unavailable [phone] Liyah Patterson MD Unavailable Antione Segura-C Primary Care Provider [phone] Rhett Cortez MD Unavailable Encounter Details Date Type Department Care Team (Late st Contact Info) Description 01/09/2025 Home Health [facility] [address] [place] [address] Koki Simons, HUA [address] [place] [address] [email or web address] Social History Tobacco Use Types Packs/Day Years [...] Description 05/16/2025 11:20 AM EST Office Visit [facility] Internal Medicine 40 [place] [address] Antione Segura PA-C 40 [place] [address] 06/25/2025 9:30 AM EST Telemedicine [facility] Neurology 22 [place] [address] Jn Cardoza MD [address] [place] [address] documented as of this encounter Visit Diagnoses Not on filedocumented in this encounter Additional Health Concerns Assessment Noted Time PHQ-9 Depression Total Score: 20 025 9:08 PM EDT PHQ-2 Depression Total Score: 6 12/28/19 25 9:08 PM EDT documented as of this encounter Care Teams Disulfurizer Tender Relationship Specialty Start Date End Date Antione Segura PA-C [address] [place] [address] PCP - General Physician Control Clerk Auditing 10/12/24 Jn Cardoza MD [address] [place] [address] Neurology 02/03/24 Denys Henriquez MD [address] [place] [address] [place] [address] Pulmonary Disease 02/03/24 Liyah Patterson MD [address] [place] [address] Insurance Assigned Provider 02/19/24 01/20/25 Rhett Cortez MD [address] [place] [address] Insurance Assigned Provider 01/20/25 documented as of this encounter Additional Source Comments The information contained in this document represents components of the legal health record. It is not the complete legal health record.[facility]
--- OUTSIDE RECORDS SUMMARY | 2025-05-13 06:03 | XMS_ITS | Encounter Summary ---
Author Organization [facility] Address [address] [address] Phone Care Team Providers Care Wind Farm Engineer Name Role Phone Jn Cardoza MD Unavailable Denys Henriquez MD Unavailable Antione Segura PA-C Primary Care Provider Rhett Cortez MD Unavailable Encounter Details Date Type Department Care Team (Late st Contact Info) Description 03/20/2025 Home Health [facility] of [facility] 30 [place] [address] Koki Simons RN [address] [place] [address] [email or web address] Social History Tobacco Use [...] Description 05/16/2025 11:20 AM EST Office Visit [facility] Internal Medicine 40 [place] [address] Antione Segura PA-C 40 [place] [address] 06/25/2025 9:30 AM EST Telemedicine [facility] Neurology [address] [place] [address] Jn Cardoza MD [address] [place] [address] documented as of this encounter Visit Diagnoses Not on filedocumented in this encounter Additional Health Concerns Assessment Noted Time PHQ-9 Depression Total Score: 15 025 9:44 AM EDT PHQ-2 Depression Total Score: 4 02/01/20 25 9:44 AM EDT documented as of this encounter Care Teams Wind Farm Engineer Relationship Specialty Start Date End Date Antione Segura PA-C [address] [place] [address] PCP - General Physician Advertising Columnist 10/12/24 Jn Cardoza MD [address] [place] [address] Neurology 02/03/24 Denys Henriquez MD [address] [place] [address] [place] [address] Pulmonary Disease 02/03/24 Rhett Cortez MD [address] [place] [address] [email or web address] Insurance Assigned Provider 01/20/25 documented as of this encounter Additional Source Comments The information contained in this document represents components of the legal health record. It is not the complete legal health record.[facility]
--- OUTSIDE RECORDS SUMMARY | 2025-05-13 06:03 | XMS_ITS | Encounter Summary ---
Author Organization [facility] Address [address] [place] [address] Phone Care Team Providers Care Ship Mate Name Role Phone Charbel Webber MD Unavailable Alverto Gandara MD Unavailable Maikel Rawls MD Unavailable [phone] Jennifer Duke TIRE BUILDING SUPERVISOR Primary Care Provider Lang Germain MD Primary Care Provider Jennifer Duke TIRE BUILDING SUPERVISOR Primary Care Provider Lang Germain MD Unavailable Lang Germain MD Primary Care Provider Jennifer Duke TIRE BUILDING SUPERVISOR Primary Care Provider Lang Germain MD Primary Care Provider Jennifer Dkue TIRE BUILDING SUPERVISOR Primary Care Provider Lang Germain MD Primary Care Provider Jennifer Duke TIRE BUILDING SUPERVISOR Primary Care Provider Lang Germain MD Primary Care Provider [place], Jennifer L TIRE BUILDING SUPERVISOR Unavailable [phone] Jennifer Duke TIRE BUILDING SUPERVISOR Primary Care Provider [phone] Lang Germain MD Primary Care Provider [phone] Jennifer Duke TIRE BUILDING SUPERVISOR Primary Care Provider [phone] Sirisha Huertas UTILITY LOCATOR Primary Care Provider Jn Cardoza MD Unavailable Denys Henriquez MD Unavailable Liyah Patterson MD Unavailable Liyah Patterson MD Primary Care Provider [phone] Antione Segura PA-C Primary Care Provider [phone] Rhett Cortez MD Unavailable Encounter Details Date Type Department Care Team (Late st Contact Info) Description 09/13/2018 Procedure Pass [facility], [address] [address] Social History Tobacco Use Types Packs/Day Years [...] Description 05/16/2025 11:20 AM EST Office Visit [facility] Internal Medicine 40 [place], [place] [phone] Antione Segura PA-C 40 [place] [address] [email or web address] 06/25/2025 9:30 AM EST Telemedicine [facility] Neurology 22 [place] [address] Jn Cardoza MD [address] [facility], 2nd [place] [address] [email or web address] documented as of this encounter Visit Diagnoses Not on filedocumented in this encounter Additional Health Concerns Assessment Noted Time PHQ-2 Depression Total Score: 0 08/20/19 9:13 AM EST documented as of this encounter Care Teams Ship Mate Relationship Specialty Start Date End Date Jennifer Duke TIRE BUILDING SUPERVISOR [address] [place] [address] [email or web address] PCP - General Family Medicine 09/08/18 09/14/18 Lang Germain MD [address] [place] [address] [email or web address] PCP - General Internal Medicine 09/15/18 10/02/18 Jennifer Duke NP [address] [place] [address] [email or web address] PCP - General Family Medicine 10/03/18 10/05/18 Lang Germain MD [address] [place] [address] PCP - General Internal Medicine 10/06/18 10/12/18 Jennifer Duke NP [address] [place] [address] PCP - General Family Medicine 10/13/18 11/09/18 Lang Germain MD [address] [place] [address] [email or web address] PCP - General Internal Medicine 11/10/18 11/22/18 Jennifer Duke TIRE BUILDING SUPERVISOR [address] [place] [address] PCP - General Family Medicine 11/23/18 11/30/18 Lang Germain MD [address] [place] [address] [email or web address] PCP - General Internal Medicine 12/01/18 12/13/18 Jennifer Duke TIRE BUILDING SUPERVISOR [address] [place] [address] PCP - General Family Medicine 12/14/18 11/12/19 Lang Germain MD [address] [place] [address] [email or web address] PCP - General Internal Medicine 11/13/19 12/03/19 Jennifer Duke, TIRE BUILDING SUPERVISOR [address] [place] [address] PCP - General Family Medicine 12/04/19 01/23/20 Lang Germain MD [address] [place] [address] PCP - General Internal Medicine 01/24/20 01/30/20 Jennifer Duke, TIRE BUILDING SUPERVISOR [address] [address] [email or web address] PCP - General Family Medicine 01/31/20 06/22/23 Sirisha Huertas, UTILITY LOCATOR [address] [address] [email or web address] PCP - General Nurse Practitioner 06/23/23 08/03/24 Liyah Patterson MD [address] [address] [email or web address] PCP - General Family Medicine 08/04/24 10/11/24 Antione Segura PA-C [address] [place] [address] [email or web address] PCP - General Physician Inspector Firearms 10/12/24 Charbel Webber MD [address] [facility] [place] [address] [email or web address] Historical LMR Provider 04/01/17 0 Alverto Gandara MD [address] [facility] 2nd [place] [address] [email or web address] Historical LMR Provider 04/01/17 12/03/19 Maikel Rawls MD [address] [place] [address] [email or web address] Historical LMR Provider 04/01/17 12/03/19 Lang Germain MD 40 [place] [address] [email or web address] Insurance Assigned Provider 09/18/23 02/19/24 Jennifer Duke NP [address] [facility] [place] [address] [place] [address] [email or web address] Nurse Practitioner Family Medicine 11/13/19 01/30/20 Jn Cardoza MD [address] [facility] 2nd [place] [address] [email or web address] Neurology 02/03/24 Denys Henriquez MD [address] [place] [address] [place] [address] Pulmonary Disease 02/03/24 Liyah Patterson MD [address] [facility] [address] [place] [address] [email or web address] Insurance Assigned Provider 02/19/24 01/20/25 Rhett Cortez MD 40 [place] [address] [email or web address] Insurance Assigned Provider 01/20/25 documented as of this encounter Additional Source Comments The information contained in this document represents components of the legal health record. It is not the complete legal health record.[facility]
--- OUTSIDE RECORDS SUMMARY | 2025-05-13 06:03 | XMS_ITS | Encounter Summary ---
Author Organization [facility] Address [address] [place] [address] Phone Care Team Providers Care Iron Launder Operator Name Role Phone Jn Cardoza MD Unavailable Denys Henriquez MD Unavailable Antione Segura PA-C Primary Care Provider [phone] Rhett Cortez MD Unavailable Encounter Details Date Type Department Care Team (Late st Contact Info) Description 04/26/[address] [facility] Lab Main 30 [place] [address] Rosario Rodriguez, SALES REPRESENTATIVE [employer] [address] [phone] [email or web address] Illness, unspecified Social History Tobacco Use Types Packs/Day Years [...] high school, GED, job training, learning the German language, technical skills, or developing parenting skills)? [...] Description 05/16/2025 11:20 AM EST Office Visit [facility] Internal Medicine 40 [place] [address] Antione Segura PA-C 40 [place] [address] [email or web address] 06/25/2025 9:30 AM EST Telemedicine [facility] Neurology [address] [place] [address] Jn Cardoza MD 22 [facility], [address] [place] [address] [email or web address] documented as of this encounter Procedures Procedure Name Priority Date/Time Associated Diagnosis Comments COMPREHENSIVE METABOLIC PANEL (CMP) Today 04/26/2025 6:18 AM EST Illness, unspecified CBC Today 04/26/2025 6:18 AM EST Illness, unspecified documented in this encounter Results * (ABNORMAL) CBC (04/26/2025 6:18 AM EST) WBC 11.77(H) 4.00 - 11.00 K/uL 04/26/2025 2:42 PM EST [facility] RBC 3.61(L) 4.00 - 5.20 M/uL 04/26/2025 2:42 PM EST [facility] Hemoglobin 11.0(L) 12.0 - 16.0 g/dL 04/26/2025 2:42 PM EST [facility] Hematocrit 36.8 36.0 - 46.0 % 04/26/2025 2:42 PM [facility] MCV 101.9(H) 80.0 - 100.0 fL 04/26/2025 2:42 PM [facility] MCH 30.5 27.0 - 31.0 pg 04/26/2025 2:42 PM [facility] MCHC 29.9(L) 32.0 - 36.0 g/dL 04/26/2025 2:42 PM [facility] PLT 431 150 - 450 K/uL 04/26/2025 2:42 PM [facility] MPV 9.6 8.4 - 12.0 fL 04/26/2025 2:42 PM [facility] RDW-CV 15.5(H) 11.5 - 14.5 % 04/26/2025 2:42 PM [facility] Absolute NRBC 0.00 <=0.00 K cells/uL 04/26/2025 2:42 PM [facility] NRBC 0.0 <=0.0 /100 WBCs 04/26/2025 2:42 PM [facility] Blood (Blood) 04/26/2025 6:1 8 AM EST 04/26/2025 9:55 AM EST us Rosario Rodriguez SALES REPRESENTATIVE [employer] LAB BLOOD BKR ORDERABLES Final R esult [facility] [address] [place], [place] [phone] * (ABNORMAL) Comprehensive Metabolic Panel (CMP) (04/26/2025 6:18 AM EST) Sodium 139 136 - 145 mmol/L 04/26/2025 4:11 PM [facility] Potassium 4.2 3.4 - 5.1 mmol/L 04/26/2025 4:11 PM [facility] Chloride 95(L) 98 - 107 mmol/L 04/26/2025 4:11 PM [facility] CO2 35(H) 20 - 31 mmol/L 04/26/2025 4:11 PM [facility] Anion Gap 9 3 - 17 mmol/L 04/26/2025 4:11 PM [facility] BUN 19 6 - 23 mg/dL 04/26/2025 4:11 PM [facility] Creatinine 0.80 0.50 - 1.00 mg/dL 04/26/2025 4:11 PM [facility] eGFR 83 >59 mL/min/1.7 3m2 04/26/2025 4:11 PM [facility] Comment:Estimated glomerular filtration rate calculated using the CKD-EPI refit equation. Glucose 130(H) 70 - 99 mg/dL 04/26/2025 4:11 PM [facility] Calcium 9.7 8.5 - 10.5 mg/dL 04/26/2025 4:11 PM [facility] AST 18 <33 U/L 04/26/2025 4:11 PM [facility] ALT 13 <34 U/L 04/26/2025 4:11 PM [facility] Alkaline Phosphatase 65 40 - 130 U/L 04/26/2025 4:11 PM [facility] Bilirubin, Total <0.2 0.0 - 1.2 mg/dL 04/26/2025 4:11 PM [facility] Total Protein 6.0(L) 6.4 - 8.3 g/dL 04/26/2025 4:11 PM [facility] Albumin 3.7 3.5 - 5.2 g/dL 04/26/2025 4:11 PM [facility] Globulin 2.3 1.9 - 4.1 g/dL 04/26/2025 4:11 PM [facility] Blood (Blood) 04/26/2025 6:1 8 AM EST 04/26/2025 9:55 AM EST us Rosario Rodriguez NP LAB BLOOD BKR ORDERABLES Final R esult [facility] [address] [place] [address] documented in this encounter Visit Diagnoses Diagnosis Illness, unspecified documented in this encounter Additional Health Concerns Assessment Noted Time PHQ-9 Depression Total Score: 23 025 3:04 PM EDT PHQ-2 Depression Total Score: 5 03/21/20 3:04 PM EDT documented as of this encounter Care Teams Iron Launder Operator Relationship Specialty Start Date End Date Antione Segura PA-C 40 [place] [address] PCP - General Physician Devops Engineer 10/12/24 Jn Cardoza MD [address] [place] [address], [address] [place] [address] Neurology 02/03/24 Denys Henriquez MD [address] [place] [address] [place] [address] Pulmonary Disease 02/03/24 Rhett Cortez MD [address] [place] [address] [email or web address] Insurance Assigned Provider 01/20/25 documented as of this encounter Additional Source Comments The information contained in this document represents components of the legal health record. It is not the complete legal health record.[facility]
--- OUTSIDE RECORDS SUMMARY | 2025-05-13 06:03 | XMS_ITS | Clinical Summary ---
Author Organization [facility] Address [address] [place] [phone] Phone Care Team Providers Care Activities Director Name Role Phone Jn Cardoza MD Unavailable Denys Henriquez MD Unavailable [phone] Antione Segura PA-C Primary Care Provider [phone] Rhett Cortez MD Unavailable Allergies Active Allergy Reactions Criticality Noted Date Comments Adhesive Rash Medium 05/04/2017 Iodinated Contrast Media Hives 05/04/2017 Latex, Natural Rubber Rash Low 05/04/2017 Morphine Sulfate Nausea and/or Vomiting Procaine Hcl Other (See Comments) 02/11/2000 Hives-novacaine Medications aspirin 81 MG EC tablet Take 1 tablet by mouth every morning. Active nebulizer accessories Kit Active ipratropium-albuter oL (DUONEB) 0.5-3 mg (2.5 mg base)/3 mL nebulizer solution Take 3 mL by nebulization every 4 (four) hours. Active [employer] DELIV[employer] SYSTEM Stefani Active [...] EXERTION. 025 Active baclofen (LIORESAL) 20 MG tabletIndications:T rigeminal [...] 1 025 Active hyoscyamine (ANASPAZ,LEVSIN) 0.125 mg tabletIndications:I rritable [...] daily. 025 Active benzonatate (TESSALON) 100 MG capsuleIndications: Persistent cough Take 1 capsule (100 mg total) by mouth 3 (three) times a day as needed for cough. 20 capsule 025 Active LORazepam (ATIVAN) 0.5 MG tabletIndications:A nxiety Take 1 tablet (0.5 mg total) by mouth 2 (two) times a day as needed for anxiety. Must last one month. 14 tablet Active budesonide-glycopyr -formoterol (BREZTRI AEROSPHERE) 160-9-4.8 mcg/actuation inhaler Inhale 2 puffs into the lungs 2 (two) times a day. 025 Active OXcarbazepine (TRILEPTAL) 300 MG IMMEDIATE release tabletIndications:T rigeminal neuralgia of left side of face,Atypical facial pain Take 1 tablet (300 mg total) by mouth 2 (two) times a day. 60 tablet 11 Active butalbital-acetamin ophen-caffeine (FIORICET, ESGIC) 50-325-40 mg per tablet TAKE ONE TABLET BY MOUTH EVERY DAY NEEDED FOR PAIN 8 tablet 025 Active atorvastatin (LIPITOR) 80 MG tabletIndications:M ixed hyperlipidemia Take 1 tablet (80 mg total) by mouth every morning. 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 Active amoxicillin (AMOXIL) 500 MG capsule Take 500 mg by mouth 3 (three) times a day. 025 Active oxyCODONE 5 MG immediate release tabletIndications:A cute right-sided low back pain without sciatica Take 1 tablet (5 mg total) by mouth every 6 (six) hours as needed for pain (specific location in comments). 28 tablet 025 Active DULoxetine (CYMBALTA) 60 MG capsuleIndications: Anxiety TAKE ONE CAPSULE BY MOUTH TWICE A DAY 180 capsule 3 025 Active furosemide (LASIX) 20 MG tablet Take 1 tablet (20 mg total) by mouth daily. 7 tablet 025 Active albuterol 90 mcg/actuation inhalerIndications: Chronic obstructive pulmonary disease INHALE TWO PUFFS BY MOUTH EVERY 4 HOURS NEEDED FOR WHEEZING 8.5 g 3 025 Active DULoxetine (CYMBALTA) 60 MG capsuleIndications: Anxiety take one capsule by mouth twice a day 60 capsule 11 024 2024 Discontinued albuterol 90 mcg/actuation inhaler INHALE TWO PUFFS BY MOUTH EVERY 4 HOURS NEEDED FOR WHEEZING 8.5 g 025 2024 Discontinued Active Problems Problem Noted Date Diagnosed [...] A-fib and have her follow-up with the retort forker Acute on chronic hypoxic respiratory failure Assessment & Plan (03/28/2025 4:20 PM EDT): Patient was recently admitted to [facility] [place] [place] from 03/13-03/19 for acute on chronic hypoic [...] L. She has to follow-up with her bundle shaker and to schedule another sleep study to be completed. Assessment & Plan (12/28/2024 6:54 PM EDT): Respiratory status improved on course of antibiotics and prednisone. Continue deep breathing and monitor for any worsened respiratory status. Monitor home spO2. Continue benzonatate prn. Continue O2 therapy as prescribed. Referral placed to [facility] Pulmonology. Trigeminal neuralgia 12/28/2024 Assessment & [...] last year and this was completed at [facility] through her retort forker -Her blood pressures have been not well-controlled [...] daily. She follows with Dr. Thurman at [facility]. Patient follows regularly with him. Her [...] Does have outpatient stress test scheduled with [facility] [place] Cardiology. Discussed that results would indicate future management and whether that may include cardiac catheterization. I do not see record of this within her discharge summary from [facility] [place] Assessment & Plan (12/22/2023 9:33 AM EDT): [...] should be seen and followed by a maintenance worker which she does already have appointment scheduled [...] how this is not appropriate given prescribed Pullman for pain and risk of SCALE RECLAMATION TENDER depression. She is aware of these risks and agrees to continuing medication as prescribed. She understands that she can contact the office should she be interested in discussion of medication regimen. Assessment & Plan (11/01/2023 10:20 AM EDT): PHQ9 Flowsheet Row Office Visit from 10/28/2023 in [facility] PHQ-9 Total Score [...] study and speech evaluation when inpatient at [facility]. Discussed referral to gastroenterology discussed potential of [...] does have an upcoming appointment with her bundle shaker next week. Of note she also saw another bundle shaker Remy Bautista out at [facility] pulmonary and has a follow-up with them [...] follows closely with Dr. Henriquez out of [facility]. She is on Daliresp, DuoNebs and [...] a scheduled appointment on 12/18 with her bundle shaker. She is hoping to get this moved [...] follows closely with Dr. Henriquez out of [facility]. She is on Daliresp, DuoNebs and [...] Continue prednisone as prescribed upon discharge from [facility]. Discussed concern for coronary requirement of nebulizer treatments and albuterol rescue inhaler. We also reviewed the importance of vaping cessation, she remains precontemplative. She does have follow-up appointment scheduled with Dr. Henriquez and has resumed VNA services. Assessment & Plan (11/29/2023 5:28 PM EDT): Recent admission for COPD exacerbation with acute hypoxemic respiratory failure. Current bundle shaker is Dr. Henriquez at [facility]. She is interested in establishing care with [facility] some of her specialists are within the [facility] system for better continuity of care. She understands that she should continue with Dr. Sevilla until she is able to establish care with [facility] Hypoxemia requiring supplemental oxygen 03/11/2023 10/12/2024 Assessment [...] EST): Continue follow-up with Dr. 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 We discussed concern for SCALE RECLAMATION TENDER depression and need to minimize use [...] 3 times daily and she was on Pullman however during her last hospital stay this [...] Encounters Date Type Department Care Team Description 05/12/2025 [facility] [address] [place] [phone] Maritza Calix, RN CASE COMMUNICATION 05/10/2025 [facility] [address] [place] [phone] Krista Iniguez, HUA CASE COMMUNICATION 05/07/2025 Telephone [facility] [address] [place] [address] Antione Segura PA-C 05/07/2025 Refill [facility] [address] [place] [address] Juana Solis PA-C Medication Refill 05/07/2025 Telephone [facility] [address] [place] [address] Antione Segura PA-C 05/06/2025 Refill [facility] [address] [place] [address] Antione Segura PA-C Medication Refill 05/03/2025 Telephone [facility] [address] [place] [address] Antione Segura PA-C TCM Visit (Unable to schedule) 05/03/2025 Orders Only [facility] [address] [place] [phone] Homehealth, Interface MD Lenora 05/03/2025 Lab Requisition [facility] [address] [place] [address] Nba Roberson MD Peripheral vascular disease, unspecified 04/30/2025 Episode Documentation Update [facility] [address] [place] [address] Deysi Hartmann 04/27/[address] [place], [place] [phone] Vilma Velázquez Care Coordination 04/27/2025 Home Care Visit [facility] [address] [place] [address] Shakira Hand RN SN NON OASIS DISCHARGE NON VISIT/TELEPHONE 04/26/2025 Lab Requisition [facility] [address] [place] [address] Rosario Rodriguez NP Illness, unspecified 04/25/2025 2:00 AM EST Home Care Visit [facility] [address] [place] [address] Shakira Hand RN SN OASIS TRANSFER 04/25/2025 Telephone [facility] [address] [place] [address] Antione Segura PA-C CT Neck 04/23/2025 Orders Only [facility] [address] [place] [address] ProviderOmar MD 04/20/2025 1:30 PM EST Home Care Visit [facility] [address] [place] [address] Shakira Hand RN SN HOME VISIT 04/20/2025 Home Care Visit [facility] [address] [place] [address] Yane Lanza, PT PT EVALUATION 04/19/2025 10:30 AM EST Home Care Visit [facility] [address] [place], [place] [phone] Shakira Hand, HUA SN HOME VISIT 04/19/2025 Telephone [facility] [address] [place], [place] [phone] Elida Lindquist RN Swelling 04/19/2025 Refill [facility] [address] [place], [place] [phone] Sirisha Huertas, AGA Medication Refill 04/18/2025 12:00 PM EST Home Care Visit [facility] [address] [place] [address] Shakira Hand, HUA SN OASIS RESUMPTION OF CARE (VERONIKA) 04/18/2025 Home Care Visit [facility] [address] [place] [address] Viktoriya Taylor, RN TELEPHONE ENCOUNTER 04/16/2025 Orders Only [facility] [address] [place], [place] [phone] ProviderOmar MD 04/15/2025 Home Health Resumption of Care Planning [facility] [address] [place] [address] Dennise Rodriguez, HUA 04/13/[address] [place] [address] Vilma Velázquez Care Coordination 04/12/2025 3:00 PM EDT Home Care Visit [facility] [address] [place] [address] Thao Kennedy CASE COMMUNICATION 04/12/2025 Home Care Visit [facility] [address] [place] [phone] Shakira Hand, HUA SN OASIS TRANSFER 04/12/2025 Documentation [facility] [address] [place], [place] [phone] Antione Segura PA-C 04/12/2025 Orders Only [facility] [address] [place] [address] Omar Cooley MD 04/11/2025 Refill [facility] [address] [place] [address] Elida Lindquist RN TCM Visit 04/10/2025 Telephone [facility] [address] [place] [address] Antione Segura PA-C TCM Visit (Needs appt ) 04/10/2025 Telephone [facility] [address] [place] [address] Antione Segura PA-C Forms & Paperwork 04/09/2025 3:00 PM EDT Home Care Visit [facility] [address] [place] [phone] Thao Kennedy MACHINERY REPAIR MAINTENANCE SUPERVISOR HOME VISIT 04/09/2025 Telephone [facility] [address] [place], [place] [phone] Janay Naidu Care Coordination 04/09/2025 Orders Only [facility] [address] [place] [address] ProviderOmar MD 04/07/2025 Refill [facility] [address] [place] [address] Antione Segura PA-C Medication Refill 04/06/2025 11:45 AM EDT - 04/06/2025 11:59 PM EDT Hospital Encounter [facility] [address] [place] [address] Antione Segura PA-C Discharge Disposition: Home or Self Care 04/06/2025 Orders Only [facility] [address] [place] [address] Antione Segura PA-C Abnormal finding on imaging (Primary Dx); Allergic reaction to contrast material, subsequent encounter 04/05/2025 3:00 PM EDT Home Care Visit [facility] [address] [place] [phone] Thao Kennedy MACHINERY REPAIR MAINTENANCE SUPERVISOR HOME VISIT 04/05/2025 2:00 AM EDT [facility] [address] [place] [phone] Rich Mariscal LPN LAMP REPLACER HOME VISIT 04/05/2025 Episode Documentation Update [facility] [address] [place] [phone] Margy Rubalcava 04/04/2025 Episode Documentation Update [facility] [address] [place] [phone] Margy Rubalcava 04/03/2025 Episode Documentation Update [facility] [address] [place] [phone] Margy Rubalcava 04/02/2025 2:00 PM EDT Home Care Visit [facility] [address] [place] [phone] Thao Kennedy MACHINERY REPAIR MAINTENANCE SUPERVISOR HOME VISIT 04/02/2025 Episode Documentation Update [facility] [address] [place] [phone] Margy Rubalcava 03/30/2025 Episode Documentation Update [facility] [address] [place] [phone] Margy Rubalcava 03/29/2025 3:00 PM EDT Home Care Visit [facility] [address] [place], [place] [phone] Thao Kennedy MACHINERY REPAIR MAINTENANCE SUPERVISOR HOME VISIT 03/29/2025 11:30 AM EDT Home Care Visit [facility] [address] [place], [place] [phone] Shakira Hand RN SN HOME VISIT 03/29/2025 Telephone [facility] [address] [place] [address] Janay Naidu Care Coordination 03/29/2025 Episode Documentation Update [facility] [address] [place] [phone] Margy Rubalcava 03/28/2025 2:32 PM EDT - 03/28/2025 11:59 PM EDT Hospital Encounter [facility] [address] [address] Antione Segura PA-C Discharge Disposition: Home or Self Care 03/28/2025 9:40 AM EDT Office Visit [facility] [address] [place] [address] Antione Segura PA-C Acute right-sided low back pain without sciatica (Primary Dx); Depression, unspecified depression type; Dizziness and giddiness; Acute on chronic hypoxic respiratory failure 03/28/2025 Telephone [facility] [address] [place] [address] Janay Naidu Care Coordination 03/28/2025 Telephone [facility] [address] [place] [address] Antione Segura PA-C Results 03/28/2025 Procedure Pass [facility], [facility] Scan [facility] [address] [place] [address] 03/28/2025 Episode Documentation Update [facility] [address] [place] [address] Margy Rubalcava 03/27/2025 Home Care Visit [facility] [address] [place] [phone] Thao Kennedy MACHINERY REPAIR MAINTENANCE SUPERVISOR HOME VISIT 03/21/2025 1:30 PM EDT Home Care Visit [facility] [address] [place] [address] Shakira Hand, HUA SN OASIS RESUMPTION OF CARE (VERONIKA) 03/21/2025 Documentation [facility] [address] [place], [place] [phone] Antione Segura PA-C 03/20/2025 Home Health Resumption of Care Planning [facility] [address] [place] [address] Koki Simons RN 03/16/2025 4:30 AM EDT Home Care Visit [facility] [address] [place] [address] Shakira Hand, HUA SN OASIS TRANSFER 03/15/2025 Refill [facility] [address] [place], [place] [phone] Antione Segura PA-C Medication Refill 03/13/2025 Orders Only [facility] [address] [place], [place] [phone] Omar Cooley MD 03/08/2025 1:00 AM EDT Home Care Visit [facility] [address] [place] [address] Rich Mariscal LPN LPN HOME VISIT 03/08/2025 Refill [facility] [address] [place], [place] [phone] Antione Segura PA-C Medication Refill 03/08/2025 Refill [facility] [address] [place] [address] Pete Hicks PA-C Medication Refill 03/08/2025 [facility] [address] [place] [address] Antione Segura PA-C Medication Refill 03/06/2025 Episode Documentation Update [facility] [address] [place] [phone] Bratic, Stanislavka 03/05/2025 Episode Documentation Update [facility] [address] [place] [phone] Bratic, Stanislavka 03/04/2025 Episode Documentation Update [facility] [address] [place] [phone] Bratic, Stanislavka 03/02/2025 Episode Documentation Update [facility] [address] [place] [phone] Bratic, Stanislavka 03/02/2025 Telephone [facility] [address] [place] [address] Antione Segura PA-C [facility] [place] referral request 03/01/2025 11:00 AM EDT Home Care Visit [facility] [address] [place] [phone] Rich Mariscal LPN LPN HOME VISIT 03/01/2025 [facility] [address] [place] [address] Vania Matamoros [place] 02/27/2025 [facility] [address] [place] [address] Antione Segura PA-C Medication Refill 02/26/2025 Episode Documentation Update [facility] [address] [place] [phone] Margy Rubalcava 02/23/2025 11:30 AM EDT Home Care Visit [facility] [address] [place] [phone] Shakira Hand RN SN OASIS RECERTIFICATION/FUP 02/23/2025 Plan of Care Documentation [facility] [address] [place] [phone] 02/21/2025 Episode Documentation Update [facility] [address] [place] [phone] Margy Rubalcava 02/20/2025 Orders Only [facility] [address] [place], [place] [phone] ProviderOmar MD 02/19/2025 10:30 AM EDT Home Care Visit [facility] [address] [place] [address] Shakira Hand RN SN PRN HOME VISIT 02/19/2025 9:00 AM EDT Home Care Visit [facility] [address] [place] [phone] Krysta Charles MACHINERY REPAIR MAINTENANCE SUPERVISOR HOME VISIT 02/16/2025 Home Care Visit [facility] [address] [place] [address] Laquita Mchugh, PT TELEPHONE ENCOUNTER 02/16/2025 Telephone [facility] [address] [place], [place] [phone] Antione Segura PA-C Referral ([facility] [place] Pulmon[facility]) 02/16/2025 Home Care Visit [facility] [address] [place] [address] Krysta Charles MACHINERY REPAIR MAINTENANCE SUPERVISOR HOME VISIT 02/15/2025 9:00 AM EDT Office Visit [facility] [address] [place], [place] [phone] Antione Segura PA-C Pulmonary emphysema, unspecified emphysema type (Primary Dx) 02/15/2025 Home Care Visit [facility] [address] [place] [phone] Laquita Mchugh, PT TELEPHONE ENCOUNTER 02/14/2025 1:30 PM EDT Home Care Visit [facility] [address] [place] [phone] Shakira Hand, HUA SN HOME VISIT 02/14/2025 Home Care Visit [facility] [address] [place] [address] Laquita Mchugh, PT TELEPHONE ENCOUNTER 02/14/2025 Home Care Visit [facility] [address] [place] [address] Laquita Mchugh, PT TELEPHONE ENCOUNTER 02/14/2025 Orders Only [facility] [address] [place] [address] ProviderOmar MD 02/14/2025 Documentation [facility] [address] [place] [address] Antione Segura PA-C 02/14/2025 [facility] Visit [facility] [address] [place] [address] Krysta Charles MACHINERY REPAIR MAINTENANCE SUPERVISOR HOME VISIT 02/13/[address] [phone] Antione Segura PA-C Appointment (Tcm+discharged 02/09/25 ) 02/12/2025 12:30 PM EDT Home Care Visit [facility] [address] [place] [phone] Shakira Hand, RN SN OASIS RESUMPTION OF CARE (VERONIKA) 02/11/2025 Home Care Visit [facility] [address] [place] [phone] Maritza Calix, RN CASE COMMUNICATION from Last 3 Months Immunizations Immunization Administration [...] Sign Reading Time Taken Comments Blood Pressure 118/76 04/20/2025 12:10 PM EST Pulse 74 04/20/2025 12:10 PM EST Temperature 36.7 C (98.1 F) 04/20/2025 12:10 PM EST Respiratory Rate 18 04/20/2025 12:10 PM EST Oxygen Saturation 95% 04/20/2025 12:10 PM EST Inhaled Oxygen Concentration - - Weight 94.3 kg (208 lb) 03/28/2025 9:41 AM EDT Height 156.2 cm (5' 1.5 ) 03/28/2025 9:41 AM EDT Body Mass Index 38.67 03/28/2025 9:41 AM EDT Plan of Treatment Upcoming Encounters Date Type Department Care Team (Late st Contact Info) Description 05/16/2025 11:20 AM EST Office Visit [facility] [address] [place] [address] Antione Segura PA-C [address] [place] [address] [email or web address] 06/25/2025 9:30 AM EST Telemedicine [facility] [address] [place] [address] Jn Cardoza MD [address] [facility], [address] [place] [address] [email or web address] Health Maintenance Due Date Last Done Comments COLOGUARD 01/09/2008 FIT TEST 01/09/2008 FOBT 01/09/2008 SIGMOIDOSCOPY 01/09/2008 VIRTUAL COLONOSCOPY 01/09/2008 RSV VACCINE (1 - Risk 50-74 years 1-dose series) 2013 ZOSTER VACCINES (1 of 2) 2013 PAP SMEAR 02/21/2023 02/22/2020, 02/12, 08/27/2014 COLONOSCOPY 12/05/2023 12/04/2013, 12/04/2013 COLORECTAL CANCER SCREENING 12/05/2023 Adult Td,Tdap Booster 12/30/2023 12/29/2013 COVID-19 VACCINE ( season) 2025 07/18/2021, 10/02/2020, 09/11/2020 BLOOD PRESSURE 10/18/2025 04/20/2025 LUNG CANCER SCREENING (LDCT Only) 12/21/2025 12/21/2024, 08/27/2022, 09/05/2021, Additional history exists SMOKING Hx and SMOKELESS TOBACCO SCREENING 03/28/2026 03/28/2025 CREATININE LEVEL 05/03/2026 05/03/2025, , 04/11/2025, Additional history exists POTASSIUM LEVEL 05/03/2026 05/03/2025, 04/14, 04/11/2025, Additional history exists DEPRESSION SCREENING 05/11/2026 05/11/2025, 05/11/20 LIPID PANEL 08/22/2026 08/22/2021, 08/12, 02/26/2020, Additional history exists MAMMOGRAM 02/14/2027 02/14/2025, 05/14, 09/01/2021, Additional history exists SCREENING FOR DIABETES 05/03/2028 05/03/2025, 2021 HEPATITIS C SCREENING Completed 05/25/2019, 019 [...] Diagnosis Comments COMPREHENSIVE METABOLIC PANEL (CMP) Today 05/03/2025 4:40 AM EST Peripheral vascular disease, unspecified CBC Today 05/03/2025 4:40 AM EST Peripheral vascular disease, unspecified CBC Today 04/26/2025 6:18 AM EST Illness, unspecified COMPREHENSIVE METABOLIC PANEL (CMP) Today 04/26/2025 6:18 AM EST Illness, unspecified OUTSIDE IMAGING Routine 04/20/2025 8:10 AM EST OUTSIDE XR CHEST REPORT ONLY Routine 04/20/2025 7:44 AM EST OUTSIDE IMAGING Routine 04/16/2025 7:39 AM EST [...] HM MAMMOGRAPHY Routine 02/14/2025 2:39 PM EDT HM LDCT PROCEDURE FOR RESULT ENTRY ONLY Routine 12/21/2024 LIPID PANEL Routine 08/22/2021 8:13 AM EST Mixed hyperlipidemia PAP TEST Routine 02/22/2020 12:00 AM EDT HEPATITIS C ANTIBODY, QUALITATIVE Routine 05/25/2019 10:24 AM EST Need for hepatitis C screening test HM COLONOSCOPY FOR RESULT ENTRY ONLY Routine 12/04/2013 from Last 3 Months or Most Recently Relevant to Health Maintenance Results * (ABNORMAL) Comprehensive Metabolic Panel (CMP) (05/03/2025 4:40 AM EST) Only the most recent of2 resultswithin the time period is included. Sodium 140 136 - 145 mmol/L 05/03/2025 7:15 AM [facility] Potassium 3.7 3.4 - 5.1 mmol/L 05/03/2025 7:15 AM [facility] Chloride 98 98 - 107 mmol/L 05/03/2025 7:15 AM [facility] CO2 33(H) 20 - 31 mmol/L 05/03/2025 7:15 AM [facility] Anion Gap 9 3 - 17 mmol/L 05/03/2025 7:15 AM [facility] BUN 10 6 - 23 mg/dL 05/03/2025 7:15 AM [facility] Creatinine 0.50 0.50 - 1.00 mg/dL 05/03/2025 7:15 AM [facility] eGFR 106 >59 mL/min/1.7 3m2 05/03/2025 7:15 AM [facility] Comment:Estimated glomerular filtration rate calculated using the CKD-EPI refit equation. Glucose 124(H) 70 - 99 mg/dL 05/03/2025 7:15 AM [facility] Calcium 9.3 8.5 - 10.5 mg/dL 05/03/2025 7:15 AM [facility] AST 17 <33 U/L 05/03/2025 7:15 AM [facility] ALT 14 <34 U/L 05/03/2025 7:15 AM [facility] Alkaline Phosphatase 60 40 - 130 U/L 05/03/2025 7:15 AM [facility] Bilirubin, Total <0.2 0.0 - 1.2 mg/dL 05/03/2025 7:15 AM [facility] Total Protein 6.2(L) 6.4 - 8.3 g/dL 05/03/2025 7:15 AM [facility] Albumin 3.6 3.5 - 5.2 g/dL 05/03/2025 7:15 AM [facility] Globulin 2.6 1.9 - 4.1 g/dL 05/03/2025 7:15 AM [facility] Blood (Blood) 05/03/2025 4:4 0 AM EST 05/03/2025 6:06 AM EST us Nba Roberson MD LAB BLOOD BKR ORDERABLES Final R esult [address] [address] * (ABNORMAL) CBC (05/03/2025 4:40 AM EST) Only the most recent of2 resultswithin the time period is included. WBC 8.32 4.00 - 11.00 K/uL 05/03/2025 6:44 AM [facility] RBC 3.33(L) 4.00 - 5.20 M/uL 05/03/2025 6:44 AM [facility] Hemoglobin 10.1(L) 12.0 - 16.0 g/dL 05/03/2025 6:44 AM [facility] Hematocrit 32.5(L) 36.0 - 46.0 % 05/03/2025 6:44 AM [facility] MCV 97.6 80.0 - 100.0 fL 05/03/2025 6:44 AM [facility] MCH 30.3 27.0 - 31.0 pg 05/03/2025 6:44 AM [facility] MCHC 31.1(L) 32.0 - 36.0 g/dL 05/03/2025 6:44 AM [facility] PLT 356 150 - 450 K/uL 05/03/2025 6:44 AM [facility] MPV 9.5 8.4 - 12.0 fL 05/03/2025 6:44 AM [facility] RDW-CV 15.5(H) 11.5 - 14.5 % 05/03/2025 6:44 AM EST [facility] Absolute NRBC 0.02(H) <=0.00 K cells/uL 05/03/2025 6:44 AM EST [facility] NRBC 0.2(H) <=0.0 /100 WBCs 05/03/2025 6:44 AM EST [facility] Blood (Blood) 05/03/2025 4:4 0 AM EST 05/03/2025 6:06 AM EST Result [facility] Nba Roberson MD LAB BLOOD BKR ORDERABLES Final R esult Performing Organization Address City/State/[facility] Co de Phone Number [address] [address] * Outside Imaging Report Only (04/20/2025 8:10 AM EST) Result [facility] Provider IMG XR CHEST Final Res ult * Outside XR??Chest Report Only (04/20/2025 7:44 AM EST) Result [facility] Provider IMG XR CHEST Final Res ult * Outside Imaging Report Only (04/16/2025 7:39 AM EST) [facility] Provider IMG XR CHEST Final Res ult * Outside XR??Chest Report Only (04/11/2025 8:35 AM EDT) Result [facility] Provider IMG XR CHEST Final Res ult * Outside Potassium Level (04/11/2025) Only the most recent of2 resultswithin the time period is included. Pathologist [facility] Potassium level - External 4.0 3.4 - 5.0 mmol/L Result [facility] Provider LAB BLOOD ORDERABLES Mariya l Result * (ABNORMAL) Outside Serum Creatinine Level (04/11/2025) Only the most recent of2 resultswithin the time period is included. Creatinine, serum - External 0.68(A) 0.8 - 1.3 mg/dL Historical Provider MD LAB BLOOD ORDERABLES Mariya l Result * Outside ALT Level (04/11/2025) Only the most recent of2 resultswithin the time period is included. ALT - External 20 5 - 30 U/L Result [facility] Provider MD LAB BLOOD ORDERABLES Mariya l Result * Outside Lab (04/08/2025 1:09 PM EDT) Result [facility] Provider MD LAB BLOOD BKR ORDERABLES Final Result * Outside Imaging Report Only (04/08/2025 7:50 AM EDT) Result [facility] Provider MD IMG XR CHEST Final [...] clinician's provided indication for this examination in [facility]:Parotid region mass TECHNIQUE: Ultrasound of [...] CONTRAST (03/28/2025 2:46 PM EDT) MGB IMG BIODIESEL OPERATIONS MANAGER COMMENT see results [facility] Anatomical Region Laterality Modality Head Computed Tomogra phy 03/28/2025 2:54 PM EDT Impressions 03/28/2025 3:15 PM EDT 1. No acute intracranial findings. No evidence of acute infarct or hemorrhage. 2. Left parotid gland nodular density. Follow-up parotid ultrasound or neck CT with contrast recommended. A clinically significant result was initiated on 03/28/2025 3:15 PM, Message ID [id number]. Narrative 03/28/2025 3:[address] HEAD WITHOUT CONTRAST Referring clinician's provided indication for this examination in [facility]: * Dizziness, persistent/recurrent, cardiac or [...] was initiated on 03/28/2025 3:15 PM,Message ID [id number]. Antione Segura PA-C IMG CT HEAD/NECK Final Result * Outside XR??Chest Report Only (03/13/2025 8:23 AM EDT) [facility] Provider IMG XR CHEST Final Res ult * Outside Imaging Report Only (02/17/2025 11:14 AM EDT) [facility] Provider IMG XR CHEST Final Res ult * Outside US Breast Report Only (02/14/2025 4:39 PM EDT) [facility] Provider IMG US BREAST Final Res ult * MAMMOGRAPHY FOR RESULT ENTRY ONLY (02/14/2025 2:39 PM EDT) [facility] Provider HEALTH MAINTENANCE Final Result * HM LDCT PROCEDURE FOR RESULT ENTRY ONLY (12/21/2024) Pathologist [facility] LDCT - External CTA chest, juanito pulm nodules Result [facility] Provider HEALTH MAINTENANCE Final Result * (ABNORMAL) Lipid panel (08/22/2021 8:13 AM EST) Pathologist [facility] HDL 54 mg/dL [facility] Comment: Interpretation <40 mg/dL: Low HDL cholesterol (major risk factor for CHD) Greater than or equal to 60 mg/dL: High HDL cholesterol ( negative risk factor for CHD) HDL - cholesterol is affected by a number of factors, e.g. smoking, excerise, hormones, sex and age. CHOLESTEROL 237 0 - 240 mg/dL [facility] TRIGLYCERIDES 201(H) 30 - 160 mg/dL [facility] LDL 143(H) 50 - 129 mg/dL [facility] Comment: LDL levels in terms of risk for coronary heart disease: <100 mg/dL: Optimal 100-129 mg/dL: Near or above optimal 130-159 mg/dL: Borderline high 160-189 mg/dL: High >190 mg/dL: Very High CARDIAC RISK RATIO 4.4 3.3 - 4.4 C [facility] Blood 08/22/2021 8:13 AM EST 08/22/2021 8:17 AM EST us Jennifer Duke NP LAB BLOOD BKR ORDERABLES Final Result [address] [address] * Pap Smear (02/22/2020 12:00 AM EDT) 02/22/2020 02/23/2020 8:2 1 AM EDT Narrative SEE NARRATIVE - 02/27/2020 11:20 AM EDT [address] [address] Cath Lab Technologist: Perla Luis MD ROOFING TILE SORTER Cytology Report FINAL DIAGNOSIS A. PAP SMEAR [...] 52, 56, 58, 59, 66, 68) by [facility] On[facility]arity HR-HPV analysis. Clinical correlation is advised. This HPV test was performed at [facility], [address] [place] [address]. This test has been FDA approved for [facility] cervical cytology specimens. The accuracy and precision of this test for all other specimen sources has been verified in the Cytopathology Laboratory of the [facility] and has not been cleared or approved by the U.S. Food and Drug Administration. Clinical correlation is advised. CLINICAL HISTORY Date of Last Menstrual Period: 2009 Menstrual History: Post Menopausal Other Clinical Conditions: Screening Pap SPECIMEN SOURCE A: PAP SMEAR (SUREPATH) CE Patient Name: MAYRA CONSTANTINO : 1965 (Age: 55) Sex: F Institution: [facility] Location: [facility] Date of Collection: 02/22/2020 Date of Reported: 02/27/2020 11:20 Results to: Jennifer Duke MSN, BSN us Jennifer Duke NP CYTOLOGY ORDERABLES Final Resul t Performing Organization Address City/[facility]/ZIP Co de Phone Number SEE NARRATIVE * Hepatitis C antibody, qualitative (05/25/2019 10:24 AM EST) HCV NON-REACTIV E NON-REACTI VE [facility] Blood 05/25/2019 10:2 4 AM EST 05/25/2019 10:26 AM EST us Jennifer Duke NP LAB BLOOD BKR ORDERABLES Final Result Performing Organization Address City/[facility]/ZIP Co de Phone Number [facility] [address] [place] [address] * COLONOSCOPY FOR RESULT ENTRY ONLY (12/04/2013) Colonoscopy repeat 10 yrs us Historical Provider HEALTH MAINTENANCE Final Result from Last 3 Months or Most Recently Relevant to Health Maintenance Insurance [facility] MED[facility] A [facility] MEDICARE A [place] [facility] [place] [address] [place] [address] [facility] MEDICARE A [facility] MEDICARE A [facility] A Advance Directives For more information, please contact: [phone] (9AM - 5PM [place]/[facility], Wednesday-Wednesday) Documents on File Type Date Recorded Patient Hall Porter Expl anation Healthcare Proxy 03/28/2025 [place] [facility] Health Care Proxy Form scan 03/28/2025 [facility] 02/15/2025 [facility] * Full Code (Latest Code Status on File) Date Activated Date Inactivated Comments 02/15/2025 9:52 AM Question Answer Comments Code Status Confirmed With: Patient Care Teams Activities Director Relationship Specialty Start Date End Date Antione Segura PA-C [address] [place] [address] PCP - General Physician Director Of Staff Development 10/12/24 Jn Cardoza MD [address] [facility], 2nd [place] [address] Neurology 02/03/24 Denys Henriquez MD [address] [place] [address] [place] [address] Pulmonary Disease 02/03/24 Rhett Cortez MD [address] [place] [address] [email or web address] Insurance Assigned Provider 01/20/25 Additional Source Comments The information contained in this document represents components of the legal health record. It is not the complete legal health record.[facility]
--- OUTSIDE RECORDS SUMMARY | 2025-05-13 06:03 | XMS_ITS | Encounter Summary ---
Author Organization [facility] Address [address] [place] [address] Phone Care Team Providers Care Sole Molding Machine Operator Name Role Phone Jn Cardoza MD Unavailable Denys Henriquez MD Unavailable Antione Segura PA-C Primary Care Provider Rhett Cortez MD Unavailable Encounter Details Date Type Department Care Team (Late st Contact Info) Description 05/07/2025 Telephone [facility] [place] Internal Medicine [address] [place], [place] [phone] Atnione Segura PA-C [address] [place], [place] [phone] [email or web address] Social History Tobacco Use Types Packs/Day Years [...] GED, job training, learning the [place] language, technical skills, or developing parenting skills)? [...] Description 05/16/2025 11:20 AM EST Office Visit [facility] Internal Medicine [address] [place] [address] Antione Segura PA-C [address] [place] [address] 06/25/2025 9:30 AM EST Telemedicine [facility] Neurology [address] [place] [address] Jn Cardoza MD [address] [place] [address] documented as of this encounter Visit Diagnoses Not on filedocumented in this encounter Additional Health Concerns Assessment Noted Time PHQ-9 Depression Total Score: 23 025 3:04 PM EDT PHQ-2 Depression Total Score: 5 03/21/20 25 3:04 PM EDT documented as of this encounter Care Teams Sole Molding Machine Operator Relationship Specialty Start Date End Date Antione Segura PA-C [address] [place] [address] PCP - General Physician Oil And Gas Exploration Technician 10/12/24 Jn Cardoza MD [address] [place] [address] Neurology 02/03/24 Denys Henriquez MD [address] [place] [address] [place] [address] Pulmonary Disease 02/03/24 Rhett Cortez MD [address] [place] [address] [email or web address] Insurance Assigned Provider 01/20/25 documented as of this encounter Additional Source Comments The information contained in this document represents components of the legal health record. It is not the complete legal health record.[facility]
--- OUTSIDE RECORDS SUMMARY | 2025-05-13 06:03 | XMS_ITS | Encounter Summary ---
Author Organization [facility] Address [address] [place] [address] Phone Care Team Providers Care Press Operator Assistant Name Role Phone Jn Cardoza MD Unavailable Denys Henriquez MD Unavailable [phone] Antione Segura PA-C Primary Care Provider Rhett Cortez MD Unavailable Encounter Details Date Type Department Care Team (Late st Contact Info) Description 04/12/2025 Orders Only [facility] Internal Medicine [address] [place] [address] Provider, MD Omar [address] [place] [address] Social History Tobacco Use Types Packs/Day [...] high school, GED, job training, learning the [place] language, technical skills, or developing parenting skills)? [...] Description 05/16/2025 11:20 AM EST Office Visit [facility] Internal Medicine [address] [place] [address] Antione Segura PA-C [address] [place] [address] [email or web address] 06/25/2025 9:30 AM EST Telemedicine [facility] Neurology [address] [place] [address] Jn Cardoza MD [address] [place] [address], [address] [place] [address] documented as of this encounter Procedures Procedure [...] documented as of this encounter Care Teams Press Operator Assistant Relationship Specialty Start Date End Date Antione Segura PA-C [address] [place] [address] PCP - General Physician Licensed Club Manager 10/12/24 Jn Cardoza MD 22 [facility], 2nd [place] [address] [email or web address] Neurology 02/03/24 Denys Henriquez MD [address] [place] [address] [place] [address] Pulmonary Disease 02/03/24 Rhett Cortez MD [address] [place] [address] [email or web address] Insurance Assigned Provider 01/20/25 documented as of this encounter Additional Source Comments The information contained in this document represents components of the legal health record. It is not the complete legal health record.[facility]
--- OUTSIDE RECORDS SUMMARY | 2025-05-13 06:03 | XMS_ITS | Encounter Summary ---
Author Organization [facility] Address [address] [place] [address] Phone Care Team Providers Care Edge Finisher Name Role Phone Jn Cardoza MD Unavailable Denys Henriquez MD Unavailable Antione Segura PA-C Primary Care Provider [phone] Rhett Cortez MD Unavailable Encounter Details Date Type Department Care Team (Late st Contact Info) Description 04/23/2025 Orders Only [facility] Internal Medicine [address] [place] [address] Provider, MD Omar [address] [place] [address] Social History Tobacco Use Types Packs/Day [...] 05/16/2025 11:20 AM EST Office Visit [facility] Internal Medicine [address] [place] [address] Antione Segura PA-C [address] [place] [address] [email or web address] 06/25/2025 9:30 AM EST Telemedicine [facility] Neurology [address] [place] [address] Jn Cardoza MD [address] [place] [address], [address] [place] [address] [email or web address] documented as of this encounter Procedures Procedure Name Priority Date/Time Associated Diagnosis Comments OUTSIDE IMAGING Routine 04/20/2025 8:10 AM EST OUTSIDE XR CHEST REPORT ONLY Routine 04/20/2025 7:44 AM EST documented in this encounter Results * Outside Imaging Report Only (04/20/2025 8:10 AM EST) Historical Provider MD DAWKINS XR CHEST Final Res ult * Outside XR??Chest Report Only (04/20/2025 7:44 AM EST) us Historical Provider IMMadyson XR CHEST Final Res ult documented in this encounter Visit Diagnoses Not on filedocumented in this encounter Additional Health Concerns Assessment Noted Time PHQ-9 Depression Total Score: 23 025 3:04 PM EDT PHQ-2 Depression Total Score: 5 03/21/20 25 3:04 PM EDT documented as of this encounter Care Teams Edge Finisher Relationship Specialty Start Date End Date Antione Segura PA-C [address] [place] [address] [email or web address] PCP - General Physician Agility Instructor 10/12/24 Jn Cardoza MD [address] [place] [address], 2[address] [place] [address] [email or web address] Neurology 02/03/24 Denys Henriquez MD [address] [place] [address] [place] [address] Pulmonary Disease 02/03/24 Rhett Cortez MD [address] [place] [address] [email or web address] Insurance Assigned Provider 01/20/25 documented as of this encounter Additional Source Comments The information contained in this document represents components of the legal health record. It is not the complete legal health record.[facility]
--- OUTSIDE RECORDS SUMMARY | 2025-05-13 06:03 | XMS_ITS | Encounter Summary ---
Author Organization [facility] Address [address] [place] [address] Phone Care Team Providers Care Physical Therapist Center Manager Name Role Phone Lang Germain MD Unavailable Jennifer Duke FUNDRAISING OFFICER Primary Care Provider Sirisha Huertas CLINICAL TECHNOLOGIST Primary Care Provider Jn Cardoza MD Unavailable Denys Henriquez MD Unavailable [phone] Liyah Patterson MD Unavailable Liyah Patterson MD Primary Care Provider [phone] Antione Segura PA-C Primary Care Provider [phone] Rhett Cortez MD Unavailable Encounter Details Date Type Department Care Team (Late st Contact Info) Description 02/25/2023 Procedure Pass [facility], [address] [address] Social History Tobacco Use Types Packs/Day Years Used Date Smoking Tobacco: Every Day Cigarettes 0.7 43.5 Started: 11/25/1981 Passive Smoke Exposure: Never Smokeless [...] Description 05/16/2025 11:20 AM EST Office Visit [facility] Internal Medicine [address] [place] [address] Antione Segura PA-C [address] [place] [address] 06/25/2025 9:30 AM EST Telemedicine [facility] Neurology [address] [place] [address] Jn Cardoza MD 22 [facility], 2nd [place] [address] [email or web address] documented as of this encounter Visit Diagnoses Not on filedocumented in this encounter Additional Health Concerns Assessment Noted Time PHQ-9 Depression Total Score: 21 023 12:35 PM EDT PHQ-2 Depression Total Score: 2 02/19/20 23 6:55 PM EDT documented as of this encounter Care Teams Physical Therapist Center Manager Relationship Specialty Start Date End Date Jennifer Duke NP [address] [place] [address] PCP - General Family Medicine 01/31/20 06/22/23 Sirisha Huertas FNP 15 [facility] Subhash. [address] [place] [address] PCP - General Nurse Practitioner 06/23/23 08/03/24 Liyah Patterson MD [address] [place] [address] [email or web address] PCP - General Family Medicine 08/04/24 10/11/24 Antione Segura PA-C [address] [place] [address] [email or web address] PCP - General Physician Seafood Harvester 10/12/24 Lang Germain MD [address] [place] [address] [email or web address] Insurance Assigned Provider 09/18/23 02/19/24 Jn Cardoza MD [address] [place] [address], [address] [place] [address] [email or web address] Neurology 02/03/24 Denys Henriquez MD [address] [place] [address] [place] [address] Pulmonary Disease 02/03/24 Liyah Patterson MD [address] [place] [address] [email or web address] Insurance Assigned Provider 02/19/24 01/20/25 Rhett Cortez MD [address] [place] [phone] Insurance Assigned Provider 01/20/25 documented as of this encounter Additional Source Comments The information contained in this document represents components of the legal health record. It is not the complete legal health record.[facility]
--- OUTSIDE RECORDS SUMMARY | 2025-05-13 06:03 | XMS_ITS | Encounter Summary ---
Author Organization [facility] Address [address] [place] [address] Phone Care Team Providers Care Collar Stitcher Name Role Phone Charbel Webber MD Unavailable Alverto Gandara MD Unavailable Maikel Rawls MD Unavailable [phone] Lang Germain MD Primary Care Provider Jennifer Duke TELETYPE INSTALLER Primary Care Provider Lang Germain MD Primary Care Provider Jennifer Duke TELETYPE INSTALLER Primary Care Provider Lang Germain MD Primary Care Provider Jennifer Duke TELETYPE INSTALLER Primary Care Provider Lang Germain MD Unavailable Lang Germain MD Primary Care Provider Jennifer Duke TELETYPE INSTALLER Primary Care Provider Lang Germain MD Primary Care Provider Jennifer Duke TELETYPE INSTALLER Primary Care Provider Lang Germain MD Primary Care Provider [phone] Jennifer Duke TELETYPE INSTALLER Primary Care Provider [phone] Lang Germain MD Primary Care Provider [phone] Jennifer Duek TELETYPE INSTALLER Unavailable [phone] Jennifer Duke TELETYPE INSTALLER Primary Care Provider [phone] Lang Germain MD Primary Care Provider [phone] Jennifer Duke TELETYPE INSTALLER Primary Care Provider [phone] Aleksandar Sirishafrancisca Kendall MAPLE PRODUCTS MAKER Primary Care Provider [phone] Jn Cardoza MD Unavailable Denys Henriquez MD Unavailable [phone] Liyah Patterson MD Unavailable Liyah Patterson MD Primary Care Provider [phone] Antione Segura PA-C Primary Care Provider [phone] Rhett Cortez MD Unavailable Reason for Referral * MRI/CAT Scan - Closed Specialty Diagnoses / Procedures Referred By Contac t Referred To Contact Procedures CT Head Outside (No Interpretation) System, Provider Not In, PhD [address] [address] Referral ID Status Reason Start Date Expiration Date Visits Re quested Visits Authorized [id number] Closed 06/20/2018 06/20/2019 1 1 * MRI/CAT Scan - Closed Specialty Diagnoses / Procedures Referred By Contac t Referred To Contact Procedures CT Face Outside (No Interpretation) System, Provider Not In, PhD [address] [address] Referral ID Status Reason Start Date Expiration Date Visits Re quested Visits Authorized [id number] Closed 06/20/2018 06/20/2019 1 1 Encounter Details Date Type Department Care Team (Late st Contact Info) Description 06/20/2018 Ancillary Orders [facility] [address] [place] [address] System, Provider [place] In, [place] [address] Social History Tobacco Use Types Packs/Day Years [...] Description 05/16/2025 11:20 AM EST Office Visit [facility] Internal Medicine [address] [place] [address] Antione Segura PA-C [address] [place] [address] [email or web address] 06/25/2025 9:30 AM EST Telemedicine [facility] Neurology [address] [place] [id number] Jn Cardoza MD [address] [facility], 2nd [place] [address] [email or web address] documented as of this encounter Results * [...] documented as of this encounter Care Teams Collar Stitcher Relationship Specialty Start Date End Date Lang Germain MD [address] [place] [address] [email or web address] PCP - General Internal Medicine 06/13/18 06/30/18 Jennifer Duke NP [address] [place] [address] PCP - General Family Medicine 07/01/18 08/02/18 Lang Germain MD [address] [place] [address] [email or web address] PCP - General Internal Medicine 08/03/18 09/07/18 Jennifer Duke TELETYPE INSTALLER [address] [place] [address] [email or web address] PCP - General Family Medicine 09/08/18 09/14/18 Lang Germain MD [address] [place] [address] [email or web address] PCP - General Internal Medicine 09/15/18 10/02/18 Jennifer Duke TELETYPE INSTALLER [address] [place] [address] [email or web address] PCP - General Family Medicine 10/03/18 10/05/18 Lang Germain MD [address] [place] [address] [email or web address] PCP - General Internal Medicine 10/06/18 10/12/18 Jennifer Duke TELETYPE INSTALLER [address] [place] [address] [email or web address] PCP - General Family Medicine 10/13/18 11/09/18 Lang Germain MD [address] [place] [address] [email or web address] PCP - General Internal Medicine 11/10/18 11/22/18 Jennifer Duke TELETYPE INSTALLER [address] [place] [address] [email or web address] PCP - General Family Medicine 11/23/18 11/30/18 Lang Germain MD [address] [place] [address] [email or web address] PCP - General Internal Medicine 12/01/18 12/13/18 Jennifer Duke NP [address] [place] [address] [email or web address] PCP - General Family Medicine 12/14/18 11/12/19 Lang Germain MD [address] [place] [address] [email or web address] PCP - General Internal Medicine 11/13/19 12/03/19 Jennifer Duke, TELETYPE INSTALLER [address] [place] [address] [email or web address] PCP - General Family Medicine 12/04/19 01/23/20 Lang Germain MD [address] [place] [address] [email or web address] PCP - General Internal Medicine 01/24/20 01/30/20 Jennifer Duke TELETYPE INSTALLER [address] [place] [address] [email or web address] PCP - General Family Medicine 01/31/20 06/22/23 Sirisha Huertas FNP [address] [place] [address] [email or web address] PCP - General Nurse Practitioner 06/23/23 08/03/24 Liyah Patterson MD [address] [place] [address] [email or web address] PCP - General Family Medicine 08/04/24 10/11/24 Antione Segura PA-C [address] [place] [address] [email or web address] PCP - General Physician Plastic Cablemaking Machine Operator 10/12/24 Charbel Webber MD [address] [facility], [address] [place] [address] [email or web address] Historical LMR Provider 04/01/17 0 Alverto Gandara MD [address] [facility], [address] [place] [address] Historical LMR Provider 04/01/17 12/03/19 Maikel Rawls MD [address] [place] [address] [email or web address] Historical LMR Provider 04/01/17 12/03/19 Lang Germain MD [address] [place] [address] [email or web address] Insurance Assigned Provider 09/18/23 02/19/24 Jennifer Duke, [place] [address] [place] [address] [email or web address] Nurse Practitioner Family Medicine 11/13/19 01/30/20 Jn Cardoza MD [address] [facility], [address] [place] [address] [email or web address] Neurology 02/03/24 Denys Henriquez MD [address] [place] [address] [place] [address] Pulmonary Disease 02/03/24 Liyah Patterson MD [address] [facility] [address] [place] [address] [email or web address] Insurance Assigned Provider 02/19/24 01/20/25 Rhett Cortez MD [address] [place] [address] [email or web address] Insurance Assigned Provider 01/20/25 documented as of this encounter Additional Source Comments The information contained in this document represents components of the legal health record. It is not the complete legal health record.[facility]
--- OUTSIDE RECORDS SUMMARY | 2025-05-13 06:03 | XMS_ITS | Encounter Summary ---
Author Organization [facility] Address [address] [place] [address] Phone Care Team Providers Care Surveillance Monitor Name Role Phone Jn Cardoza MD Unavailable Denys Henriquez MD Unavailable Antione Segura PA-C Primary Care Provider Rhett Cortez MD Unavailable Encounter Details Date Type Department Care Team (Late st Contact Info) Description 05/03/2025 Lab Requisition [facility] Main [address] [place] [address] Nba Roberson MD [address], [address], [address] [place] [address] [email or web address] Peripheral vascular disease, unspecified Social History Tobacco Use Types Packs/Day [...] high school, GED, job training, learning the Serbian language, technical skills, or developing parenting skills)? [...] Description 05/16/2025 11:20 AM EST Office Visit [facility] Internal Medicine [address] [place] [address] Antione Segura PA-C [address] [place] [address] [email or web address] 06/25/2025 9:30 AM EST Telemedicine [facility] Neurology [address] [place] [address] Jn Cardoza MD [address] [facility], 2nd [place] [address] [email or web address] documented as of this encounter Procedures Procedure Name Priority Date/Time Associated Diagnosis Comments COMPREHENSIVE METABOLIC PANEL (CMP) Today 05/03/2025 4:40 AM EST Peripheral vascular disease, unspecified CBC Today 05/03/2025 4:40 AM EST Peripheral vascular disease, unspecified documented in this encounter Results * (ABNORMAL) Comprehensive Metabolic Panel (CMP) (05/03/2025 4:40 AM EST) Sodium 140 136 - 145 mmol/L 05/03/2025 7:15 AM EST [facility] Potassium 3.7 3.4 - 5.1 mmol/L 05/03/2025 7:15 AM EST [facility] Chloride 98 98 - 107 mmol/L 05/03/2025 7:15 AM EST [facility] CO2 33(H) 20 - 31 mmol/L 05/03/2025 7:15 AM [facility] Anion Gap 9 3 - 17 mmol/L 05/03/2025 7:15 AM [facility] BUN 10 6 - 23 mg/dL 05/03/2025 7:15 AM [facility] Creatinine 0.50 0.50 - 1.00 mg/dL 05/03/2025 7:15 AM [facility] eGFR 106 >59 mL/min/1.7 3m2 05/03/2025 7:15 AM [facility] Comment:Estimated glomerular filtration rate calculated using the CKD-EPI refit equation. Glucose 124(H) 70 - 99 mg/dL 05/03/2025 7:15 AM [facility] Calcium 9.3 8.5 - 10.5 mg/dL 05/03/2025 7:15 AM [facility] AST 17 <33 U/L 05/03/2025 7:15 AM [facility] ALT 14 <34 U/L 05/03/2025 7:15 AM [facility] Alkaline Phosphatase 60 40 - 130 U/L 05/03/2025 7:15 AM [facility] Bilirubin, Total <0.2 0.0 - 1.2 mg/dL 05/03/2025 7:15 AM [facility] Total Protein 6.2(L) 6.4 - 8.3 g/dL 05/03/2025 7:15 AM [facility] Albumin 3.6 3.5 - 5.2 g/dL 05/03/2025 7:15 AM [facility] Globulin 2.6 1.9 - 4.1 g/dL 05/03/2025 7:15 AM [facility] Blood (Blood) 05/03/2025 4:4 0 AM EST 05/03/2025 6:06 AM EST us Nba Roberson MD LAB BLOOD BKR ORDERABLES Final R esult [facility] [address] [place] [address] * (ABNORMAL) CBC (05/03/2025 4:40 AM EST) WBC 8.32 4.00 - 11.00 K/uL 05/03/2025 6:44 AM [facility] RBC 3.33(L) 4.00 - 5.20 M/uL 05/03/2025 6:44 AM [facility] Hemoglobin 10.1(L) 12.0 - 16.0 g/dL 05/03/2025 6:44 AM [facility] Hematocrit 32.5(L) 36.0 - 46.0 % 05/03/2025 6:44 AM [facility] MCV 97.6 80.0 - 100.0 fL 05/03/2025 6:44 AM [facility] MCH 30.3 27.0 - 31.0 pg 05/03/2025 6:44 AM [facility] MCHC 31.1(L) 32.0 - 36.0 g/dL 05/03/2025 6:44 AM [facility] PLT 356 150 - 450 K/uL 05/03/2025 6:44 AM [facility] MPV 9.5 8.4 - 12.0 fL 05/03/2025 6:44 AM [facility] RDW-CV 15.5(H) 11.5 - 14.5 % 05/03/2025 6:44 AM [facility] Absolute NRBC 0.02(H) <=0.00 K cells/uL 05/03/2025 6:44 AM [facility] NRBC 0.2(H) <=0.0 /100 WBCs 05/03/2025 6:44 AM [facility] Blood (Blood) 05/03/2025 4:4 0 AM EST 05/03/2025 6:06 AM EST us Nba Roberson MD LAB BLOOD BKR ORDERABLES Final R esult [facility] [address] [place] [address] documented in this encounter Visit Diagnoses Diagnosis Peripheral vascular disease, unspecified documented in this encounter Additional Health Concerns Assessment Noted Time PHQ-9 Depression Total Score: 23 025 3:04 PM EDT PHQ-2 Depression Total Score: 5 03/21/20 25 3:04 PM EDT documented as of this encounter Care Teams Surveillance Monitor Relationship Specialty Start Date End Date Antione Segura PA-C [address] [place] [address] PCP - General Physician Buffing And Polishing Wheel Repairer 10/12/24 Jn Cardoza MD [address] [facility], 2nd [place] [address] Neurology 02/03/24 Denys Henriquez MD [address] [place] [address] [place] [address] Pulmonary Disease 02/03/24 Rhett Cortez MD [address] [place] [address] [email or web address] Insurance Assigned Provider 01/20/25 documented as of this encounter Additional Source Comments The information contained in this document represents components of the legal health record. It is not the complete legal health record.[facility]
[2025-05-13 06:04] LABS: COVID-19 Test Negative (Negative); IDNOW Serial# 152EDE1D; IDNOW Serial# 16C4AD1C; Influenza B2 Negative (Negative)
--- OUTSIDE RECORDS SUMMARY | 2025-05-13 06:04 | XMS_ITS | Encounter Summary ---
Author Organization [facility] Address [address] [place] [address] Phone Care Team Providers Care Warrant Clerk Name Role Phone Jn Cardoza MD Unavailable Denys Henriquez MD Unavailable Antione Segura PA-C Primary Care Provider [phone] Rhett Cortez MD Unavailable Encounter Details Date Type Department Care Team (Late st Contact Info) Description 04/09/2025 Orders Only [facility] Internal Medicine [address] [place] [address] Provider, MD Omar [address] [place] [address] Social History Tobacco Use Types Packs/Day [...] high school, GED, job training, learning the Setsw[place] language, technical skills, or developing parenting skills)? [...] Description 05/16/2025 11:20 AM EST Office Visit [facility] Internal Medicine [address] [place] [address] Antione Segura PA-C [address] [place] [address] [email or web address] 06/25/2025 9:30 AM EST Telemedicine [facility] Neurology [address] [place] [address] Jn Cardoza MD [address] [place] [address], [address] [place] [address] [email or web address] documented as of this encounter Procedures Procedure [...] documented as of this encounter Care Teams Warrant Clerk Relationship Specialty Start Date End Date Antione Segura PA-C [address] [place] [address] [email or web address] PCP - General Physician Forest Officer 10/12/24 Jn Cardoza MD [address] [place] [address], [address] [place] [address] [email or web address] Neurology 02/03/24 Denys Henriquez MD [address] [place] [address] [place] [address] Pulmonary Disease 02/03/24 Rhett Cortez MD [address] [place] [address] [email or web address] Insurance Assigned Provider 01/20/25 documented as of this encounter Additional Source Comments The information contained in this document represents components of the legal health record. It is not the complete legal health record.[facility]
[2025-05-13] MEDS: Lactated Ringers 1,000 ML 999 ML IV (06:34)
[2025-05-13 06:37] LABS: Troponin-I High Sensitivity 7.9 ng/L (<3.5-17.0)
[2025-05-13 06:47] LABS: NT Pro B Type Natriuretic Pept 87.4 pg/mL (<300)
[2025-05-13] MEDS: Magnesium Sulfate/H2O 2 GM/50 ML PIGGYBACK IV (07:26)
[2025-05-13 07:45] LABS: INTERNATIONAL NORM RATIO 0.9 (0.9-1.1); Prothrombin Time 11.1 SEC (11.2-13.5)
--- NOTE | 2025-05-13 07:49 | PC.NURSE ---
Rocephin 2g not stocked in [facility], Pharm notified and waiting for abx to come down. azithromycin started as first abx
--- NOTE | 2025-05-13 08:52 | PM.IMHP ---
History of Present Illness Date of Service: 05/13/25 Chief Complaint: Shortness of breath 60-year-old female with a history of HTN, HLD, smoker, asthma/COPD on home O2 1-3L baseline, JUANITO/OHS home CPAP, trigeminal neuralgia, aortic stenosis, CHF, recent discharge 04/25 with acute hypoxic respiratory failure 2/2 COPD/CHF exacerbation, presents to hospital with complaints of shortness of breath. Multiple recent hospitalizations: - March 01 - March 02 - March 13 - March 19 - April 08 - April 09 - April 12 - April 13 - April 16 - April 17 - April 20 - April 25 Patient was recently discharged 04/25/2025 with acute hypoxic respiratory failure 2/2 COPD and CHF exacerbation. She was discharged to short-term rehabilitation, which she completed 05/08/25, along with a prednisone taper (end 05/08) . She completed her prednisone taper yesterday, and returned home without issue. Patient reports last night while using CPAP she noted that her oxygen saturations were very low. She became abruptly short of breath, EMS was contacted. EMS applied CPAP mask, as well as methylprednisolone 125 mg and DuoNebs. Transported to hospital Patient reports progressively worsening cough productive of clear/milky phlegm for the past few days, exercise intolerance, easy fatigability. The patient denies fevers, chills, rigors, purulent sputum. Denies chest pain, palpitations, dizziness, diaphoresis Denies nausea, vomiting, hemoptysis. Reports compliance with her medications. ED course: Patient received albuterol/ipratropium inhaler, ceftriaxone, azithromycin, magnesium sulfate. There was an order for lactated Ringer, however the patient did not receive it Diagnostics reveal no leukocytosis, without neutrophilic shift, unremarkable electrolytes, creatinine 0.7 at baseline. She was noted to have a mildly elevated lactic acid of 2.2, and CRP of 1.5 Chest x-ray report is unremarkable for acute intrathoracic abnormality Review of Systems Review of Systems: Yes all other systems are reviewed and are negative [facility] Medical History Chronic lung disease Morbid obesity Pulmonary nodules Diastolic heart failure Chronic lung disease Hypoxia Panic disorder Hypertension Chronic hypercapnic respiratory failure Aortic stenosis Asthma Hypogammaglobulinemia Smoker JUANITO (obstructive sleep apnea) Elevated troponin COPD (chronic obstructive pulmonary disease) Trigeminal neuralgia Mixed hyperlipidemia Peripheral neuropathy Tobacco use disorder Mood disorder Surgical History History of esophagogastroduodenoscopy (EGD) History of colonoscopy History of lumbar discectomy History of tubal ligation History of excision of mass History of shoulder surgery Social History Household Members: Spouse Household Members Other:: dog Housing: Condominium Do you presently have visiting nurse or other home services: Yes ([facility]) Alcohol intake: current Alcohol intake frequency: holidays/special occasions only Alcohol type: hard liquor Comment: Refusing Bed Alarm Patient Tobacco Use Status: Former Tobacco user Tobacco use type: Cigarette Cigarette Packs Per Day: 4 Cigarettes Per Day: 80.0 Years Smoked: 40 e-Cigarette/Vaping Use: Never Used Second Hand Smoke Exposure: No Substance Use Type: Marijuana Advance Directives: Yes Advance Directives on File: Yes Advance Directives Date on File: 03/09/23 service: No Meds Allergies Allergy/AdvReac Type Severity Reaction Status Date / Time Iodinated Contrast Media (IV Allergy Intermediate HIVES Verified 04/20/25 18:53 CONTRAST) latex (LATEX) Allergy Unknown RASH Verified 04/20/25 18:53 adhesive tape Allergy Rash Verified 04/20/25 18:53 morphine (MORPHINE) AdvReac Unknown VOMITING Verified 04/20/25 18:53 Home Medications ?Medication ?Instructions ?Recorded ?Confirmed ?Last Taken ?Type atorvastatin 80 mg tablet 80 mg PO DAILY@199903/04/23 05/13/25 05/09/25 History vmoqpjwuyg-nhxhgkktvmhfx-xvnxzmsc 1 tab PO DAILY MRX1 PRN Migraine 03/04/23 05/13/25 04/07/25 History 50 mg-325 mg-40 mg tablet Headache duloxetine 60 mg capsule,delayed 60 mg PO BID@0600,199903/04/23 05/13/25 05/09/25 History release gabapentin 300 mg capsule 1,200 mg PO TID@0600,1200,199903/04/23 05/13/25 05/09/25 History hyoscyamine sulfate 0.125 mg tablet 0.25 mg PO Q6H PRN Abdominal 03/04/23 05/13/25 04/07/25 History Discomfort Oxygen Home Use 04/16/23 02/26/25 10/28/24 History prazosin 2 mg capsule 2 mg PO DAILY@199904/16/23 05/13/25 05/09/25 History albuterol sulfate 90 mcg/actuation 2 puff inhalation Q4H PRN 01/31/24 05/13/25 04/12/25 History aerosol inhaler Shortness Of Breath Or Wheezing aspirin 81 mg tablet,delayed 81 mg PO DAILY@199905/22/24 05/13/25 05/09/25 History release calcium 600 mg (as 1 tab PO DAILY@199906/20/24 05/13/25 05/09/25 History carbonate)-vitamin D3 5 mcg (200 unit) tablet baclofen 20 mg tablet 20 mg PO TID@0600,1199,199910/29/24 05/13/25 05/09/25 History aripiprazole 5 mg tablet (Abilify) 5 mg PO DAILY@0612/01/24 05/13/25 05/09/25 History oxcarbazepine 300 mg tablet 300 mg PO BID@06,199912/21/24 05/13/25 05/09/25 History lorazepam 0.5 mg tablet 0.5 mg PO BEDTIME@1999 MODERATE 01/04/25 05/13/25 05/09/25 History Anxiety polyethylene glycol 3350 17 17 g PO DAILY PRN Constipation 01/04/25 05/13/25 04/07/25 History gram/dose oral powder (Miralax) budesonide 160 mcg-glycopyr 9 2 inh inhalation BID@0600,1800 02/05/25 05/13/25 05/09/25 History mcg-formot 4.8 mcg/actuation HFA inhaler (Breztri Aerosphere) lorazepam 0.5 mg tablet 0.5 mg PO DAILY PRN Anxiety 02/05/25 05/13/25 04/07/25 History roflumilast 500 mcg tablet 500 mcg PO DAILY@0600 02/05/25 05/13/25 05/09/25 History (Daliresp) valsartan 40 mg tablet 40 mg PO DAILY@0600 02/05/25 05/13/25 05/09/25 History verapamil 120 mg tablet 120 mg PO BID@0602/05/25 05/13/25 05/09/25 History omeprazole 20 mg capsule,delayed 20 mg PO DAILY@0603/01/25 05/13/25 05/09/25 History release prednisone 5 mg tablet 5 mg PO Q48H 03/01/25 05/13/25 05/09/25 History acetaminophen 650 mg 1,300 mg PO Q8H PRN Pain 03/13/25 05/13/25 04/07/25 History tablet,extended release magnesium oxide 400 mg PO DAILY@0603/13/25 05/13/25 05/09/25 History melatonin 3 mg tablet 3 mg PO BEDTIME PRN Insomnia 04/08/25 05/13/25 Unknown History oxycodone 5 mg tablet 5 mg PO Q6H PRN Severe Pain (Scale 04/08/25 05/13/25 04/07/25 History Score 7-10) chlorhexidine gluconate 0.12 % 15 ml buccal BID@05/13/25 05/13/25 05/09/25 History mouthwash furosemide 40 mg tablet 40 mg PO DAILY@0605/13/25 05/13/25 05/09/25 History Physical Exam Vital Signs and Narrative: Vital Signs: Last Vital Signs Temp 98.1 F 05/13/25 07:05 Pulse 85 05/13/25 08:47 Resp 16 05/13/25 08:47 BP 113/46 L 05/13/25 07:05 Pulse Ox 95 05/13/25 08:47 O2 Del Method Nasal Cannula 05/13/25 08:47 O2 Flow Rate 4 05/13/25 08:47 Oxygen Flow Rate 10 05/13/25 05:07 BMI result Body Mass Index 42.7 General: A&O x3, oriented to time place person and situation, comfortable, no pain - MO habitus Cardiac: S1, S2 auscultated with no S3/4, no MRG. Well perfused. Elevated JVP bilaterally to the angle of the mandible. Respiratory: Reduced breath sounds at the bases bilaterally, with crepitations auscultated to the mid zones, without upper respiratory wheezing or upper lobe wheezing, rales or crackles. Patient is on 4 L O2 NC, 93% while sleeping/ 95% while awake. GI/ : No abdominal pain on palpation, no masses or distentions. MSK: Normal ambulation without pain at bony prominences or musculature. Bilateral lower extremity edema 3+ to the knees bilaterally ; pitting. Neurological: Normal neurological examination on overview, without obvious CN II-XII abnormalities. Results Labs 05/13/25 05:35 05/13/25 05:35 Labs: Laboratory Results - last 24 hr 05/13/25 05/13/25 05/13/25 05:35 05:36 07:14 MCV 97.8 MCH 30.2 MCHC 30.9 L RDW 15.0 Plt Count 388 MPV 8.9 L Immature Gran % (Auto) 0.4 Neut % (Auto) 59.7 Lymph % (Auto) 24.8 [place] % (Auto) 10.0 Eos % (Auto) 4.7 H Baso % (Auto) 0.4 Lymph # (Auto) 2.3 [place] # (Auto) 0.9 Eos # (Auto) 0.4 Baso # (Auto) 0.0 Abs Immat Gran (auto) 0.04 H Absolute Neuts (auto) 5.5 Absolute Nucleated RBC 0.000 Nucleated RBC % (auto) 0.0 PT 11.1 L INR 0.9 Anion Gap 14 Estim Creat Clear Calc 95.2 Estimated GFR > 60 Random Glucose 117 H Lactic Acid 1.4 2.2 H* Calcium 9.2 Magnesium 1.8 Total Bilirubin 0.1 AST 24 ALT 16 Alkaline Phosphatase 61 Troponin I High Sens 7.9 C-Reactive Protein 1.50 H NT-Pro-B Natriuret Pep 87.4 Total Protein 6.9 Albumin 4.0 COVID-19 (SONAL) Negative COVID-19 Clin Com See Note Influenza Type A (DERREK) Negative Influenza Type B (DERREK) Negative Influenza A & B Note See Note Assessment and Plan (1) Diastolic heart failure: Qualifiers: Heart failure chronicity: chronic Qualified Code(s): I50.32 - Chronic diastolic (congestive) heart failure Status: Acute (2) Diastolic dysfunction with acute on chronic heart failure: Status: Acute (3) Aortic stenosis: Qualifiers: Cardiac valve disease etiology: etiology unspecified Qualified Code(s): I35.0 - Nonrheumatic aortic (valve) stenosis Status: Acute (4) Peripheral neuropathy: Qualifiers: Peripheral neuropathy type: polyneuropathy, unspecified Qualified Code(s): G62.9 - Polyneuropathy, unspecified Status: Acute (5) COPD exacerbation: Status: Acute (6) Chronic lung disease: Status: Acute (7) Pulmonary nodules: Status: Acute (8) Chronic hypercapnic respiratory failure: Status: Acute (9) COPD (chronic obstructive pulmonary disease): Qualifiers: COPD type: unspecified COPD Qualified Code(s): J44.9 - Chronic obstructive pulmonary disease, unspecified Status: Acute (10) Acute exacerbation of chronic obstructive pulmonary disease: Status: Acute (11) Smoker: Status: Acute Plan 60-year-old female with a history of HTN, HLD, smoker, asthma/COPD on home O2 1-3L baseline, [facility]AN[facility]O/[facility] home CPAP, trigeminal neuralgia, aortic stenosis, CHF, recent discharge 04/25 with acute hypoxic respiratory failure 2/2 COPD/CHF exacerbation, presents to hospital with complaints of shortness of breath, admitted with acute hypoxic respiratory failure 2/2 acute non infective exacerbation of COPD and superimposed acute CHFpEF >70% exacerbation. Acute hypoxic respiratory failure Acute exacerbation of HFpEF > 70% Describes shortness of breath, easy fatigability, cough productive of white sputum Bibasilar crepitations auscultated, elevated JVP angle of the mandibles, bilateral lower extremity edema NT proBNP inaccurate in BMI > 35 - disregard result Chest x-ray reveals cephalization of the pulmonary vasculature, with no pleural effusion Impression of acute CHF exacerbation with superimposed non infective COPD exacerbation PLAN - furosemide 40 mg b.i.d. IV - cardiac telemetry - intake/output q.6 hourly - daily weights - K> 4 - Mg > 2 - repeat ECHO Acute non infective exacerbation COPD Oxygen-dependent 1-3L JUANITO/OHS on CPAP No evidence of ongoing infection PLAN - doxycycline 100 mg b.i.d. p.o. empirically - prednisone 60 mg OD p.o. - DuoNebs - albuterol p.r.n. - oxygen as prescribed 1-3L - CPAP nightly - guaifenesin for cough - respiratory viral panel ordered; airborne precautions for now CHRONIC MEDICAL ISSUES History of CVA History of CAD - aspirin 81 mg OD p.o. - atorvastatin 80 mg OD p.o. MDD/HELENA - duloxetine 60 mg OD p.o. - Aripiprazole GERD - omeprazole 20 mg OD p.o. Seizure disorder - Oxcarbazepine 300 mg b.i.d. p.o. HTN - Valsartan 40 mg OD p.o. - Hold verapamil 120 b.i.d. p.o.; resume for worsening HTN Chronic pain Disorder Trigeminal Neuralgia Peripheral Neuropathy - Oxycodone PRN - Baclofen held - Tylenol PRN - Gabapentin QUALITY METRICS - VTE: Enoxaparin 40 mg - CODE STATUS: Full code - DIET: Cardiac diet Quality Stroke Does the patient have a stroke diagnosis?: No VTE Prior VTE?: No VTE Risk Level:: Medical - moderate - high VTE Device Contraindication: N/A - Device Ordered VTE Drug Contraindication: N/A - Med Ordered
[2025-05-13 09:19] LABS: Reflex Lactate? Lactic Acid Added
[2025-05-13] MEDS: Furosemide 40 MG/4 ML VIAL IVPUSH ×2 (10:05→20:01)
[2025-05-13] MEDS: guaiFENesin 200 MG/10 ML 10 ML LIQUID PO ×2 (10:05→19:59)
[2025-05-13 10:16] LABS: ~Lactic Acid-LAB USE ONLY 1.7 mmol/L (0.5-2.0)
--- NOTE | 2025-05-13 10:25 | PHA.MEDREC ---
Pharmacy Consult ? Medication Reconciliation Pharmacy has completed the medication reconciliation. Patient was just discharged 04/25/25. Patient is unsure if she picked up new RX for Lasix 40 mg daily. Patient confirmed Prednisone 5 mg she takes on even days. Pt states she has not taken her medications since Wednesday.
--- NOTE | 2025-05-13 13:25 | PC.NURSE ---
pharmacy contacted for missing medications. pt states she does not want to take the available ones until all are ready. did take mag and ability
[2025-05-13] MEDS: Albuterol/Iprat 2.5/0.5MG 3 ML AMPUL.NEB INHALE ×2 (13:54→23:08)
[2025-05-13] MEDS: 0.9 % Sodium Chloride Flush 3 ML SYRINGE IVFLUSH ×2 (18:22→23:00)
[2025-05-13] MEDS: oxyCODONE HCl Immed Release 5 MG TABLET PO (19:04)
--- NOTE | 2025-05-13 19:04 | PC.NURSE ---
oxycodone label wears off and will not scan. oxycodone administered per PRN orders
[2025-05-13] MEDS: Aspirin Enteric Coated 81 MG TABLET.DR PO (19:58)
--- NOTE | 2025-05-13 20:08 | PC.NURSE ---
this RN assumed care of this pt @1900, pt medicated per AUG, noted to be laying semi-souza's, in no apparent distress, requesting humidified o2 for comfort, respiratory therapy made aware, call light provided fore safety
[2025-05-14] VITALS (15 sets, daily range): BP systolic 88–127; BP diastolic 46–58; PULSE 66–84; RESP 16–20; TEMP 36.2–36.8; O2SAT 94–97
[2025-05-14] MEDS: guaiFENesin 200 MG/10 ML 10 ML LIQUID PO ×4 (02:20→20:06)
--- NOTE | 2025-05-14 07:00 | CA_ITS ---
Transthoracic Echocardiogram Patient (Last, First, Middle): Zulma Alves R Gender: F Date of : 1965 Age: 60 Procedure Date: 05/14/2025 Procedure Type: Transthoracic Echocardiogram Location: S3E Height: 175.26 cm Weight: 91.17 kg BSA: 2.07 m2 Heart Rate: 82 bpm BP: 130 / 76 mmHg Machine Stoppage Frequency Checker: Referring MD: Glenn Wray MD Symptoms: acute CHF exacerbation Study Quality: Fair ECG Rhythm: Sinus Conclusions: - The left ventricular systolic function is hyperdynamic. The visually estimated ejection fraction is >70%. - No obvious valvular pathology seen on this study. - Elevated gradients across aortic valve due to high stroke volume. Doubt any significant aortic stenosis. Findings Left Ventricle Normal left ventricular cavity size. There is moderately increased left ventricular wall thickness. The left ventricular systolic function is hyperdynamic. The visually estimated ejection fraction is >70%. There is no evidence of regional wall motion abnormalities. There is no dynamic left ventricular outflow tract obstruction. Diastolic function is normal for age. Right Ventricle Normal right ventricular cavity size and systolic function. Atria Both atria are normal in size. Aortic Valve There is mild calcification of the aortic valve. There is no aortic valve stenosis. Elevated gradients across aortic valve due to high stroke volume. Doubt any significant aortic stenosis. Mitral Valve The mitral valve appears normal. There is no mitral valve regurgitation. There is no mitral valve stenosis. Pulmonic Valve The pulmonic valve is likely normal. Tricuspid Valve There is trace tricuspid valve regurgitation. There is no evidence of pulmonary hypertension. Great Vessels The sinuses of valsalva and asc aorta are normal in size. Venous The inferior vena cava is mildly dilated and collapses greater than 50% with inspiration. Pericardium/Pleural There is no evidence of pericardial effusion. Prior Study Comparison No significant change compared to prior study dated: 02/06/2025. Recommendations, Care & Conclusions No obvious valvular pathology seen on this study. Measurements 2D Linear Measurements IVSd: 1.30 0.6-0.9/0.6-1.0 cm LVIDd: 3.33 3.9-5.3/4.2-5.9 cm LVIDd Index: 1.61 2.4-3.2/2.2-3.1 cm/m2 LVIDs: 2.27 2.0-3.6 cm LVPWd: 1.29 0.7-1.1 cm LA Diam: 3.30 2.7-3.8/3.0-4.0 cm LAIDs Index: 1.59 1.5-2.3 cm/m2 LV Mass: 177.37 67-162/88-224 g LV Mass Index: 85.69 43-95/49-115 g/m2 LVOT Diam: 2.20 3.0+(-)1.3 cm 2D Systolic Function EF 4C: 57.50 >55% EF 2C: 62.90 >55% EF BiP: 60.40 >55% Mitral Valve MV Pk E: 1.12 MV PK A: 1.11 MV Decel Time: 199.00 E/A: 1.00 E'Lateral: 10.90 E'Medial: 9.14 E/E' Med: 12.30 E/E' Lat: 10.30 PHT: 58.00 MVA PHT: 3.79 Decel [place]: 5.62 Aortic Valve AoV Pk Griffin: 2.76 AoV Mn Griffin: 1.73 AoV VTI: 0.57 AoV Pk Grad: 30.00 Aov Mn Grad: 15.00 PERICO Cont.VTI: 2.47 LVOT LVOT Pk [place]: 1.64 LVOT Mn Griffin: 1.19 LVOT VTI: 0.37 LVOT Pk Grad: 11.00 LVOT Mn Grad: 7.00 LVOT Diam: 2.20 LVOT Area: 3.80 Diastolic Function MV Pk E: 1.12 MV Pk A: 1.11 E/A: 1.00 E'Medial: 9.14 E/E' Med: 12.30 E' Laterial: 10.90 E/E' Lat: 10.30 Right Ventricle TAPSE (mm): 21.90 TVS' Griffin: 11.70 Tricuspid Valve TR Pk Griffin: 2.47 TR Pk Grad: 24.00 RA Press: 8.00 RVSP: 32.00 Great Vessels Aorta Sinus of Valsalva: 3.00 2.0-3.5 cm Ao Asc: 3.10 2.1-3.4 cm Pulmonary Valve PV Pk Griffin: 1.04 Peak PV Grad: 4.00 Updated in Other Vendor System with Status of Final Wilfredo Bhatti MD electronically signed on 05/14/2025 4:03:41 PM with status of Final
[2025-05-14 09:00] LABS: MANUAL DIFF FLAG NO
[2025-05-14 09:02] LABS: Hematocrit 35.1 % (37.0-47.0); Hemoglobin 11.1 g/dl (12.0-16.0); Imm Gran Abs Auto 0.04 X10*3/uL (0.00-0.03); Imm Gran Pct Auto 0.4 % (0.0-0.4); Lymphocytes Absolute Auto 1.7 X10*3/uL (1.2-4.9); Mean Corpuscular HGB Conc 31.6 g/dl (31.0-35.0); Mean Corpuscular Hemoglobin 30.1 pg (27.0-33.0); Mean Corpuscular Volume 95.1 fL (80.0-98.0); NRBC Abs Auto 0.000 X10*3/uL (0.0-0.012); NRBC Pct Auto 0.0 /100WBC (0.0-0.2); Platelet Count 412 X10*3/uL (160-400); Red Blood Count 3.69 X10*6/uL (4.20-5.50); White Blood Count 9.7 X10*3/uL (4.8-10.8)
[2025-05-14] MEDS: 0.9 % Sodium Chloride Flush 3 ML SYRINGE IVFLUSH ×2 (09:28→17:15)
[2025-05-14 09:44] LABS: Anion Gap 13 (12-20); Blood Urea Nitrogen 15 mg/dL (9-16); Calcium 9.7 mg/dL (8.4-10.2); Carbon Dioxide 31 mmol/L (22-29); Chloride 102 mmol/L (96-108); Creatinine Clr Calc Pharmacy 93.0; Estimated Glomerular Filt Rate > 60; Magnesium 2.0 mg/dL (1.6-2.6); Potassium 3.4 mmol/L (3.3-5.1); Sodium 143 mmol/L (135-145)
--- NOTE | 2025-05-14 11:21 | MHC.CM.PN ---
Addendum entered by Martine Jensen RN 05/14/25 12:37: Per discussion with RN, patient also [place] [facility] [place]. This is now first choice Original Note: Patient agreeable to referral to [facility] and [facility], now placed. Anticipate DC tomorrow (Wednesday05/15/25)
[2025-05-14] MEDS: Albuterol/Iprat 2.5/0.5MG 3 ML AMPUL.NEB INHALE ×2 (13:30→20:59)
[2025-05-14 15:18] LABS: Chlamydia pneumoniae PCR Not Detected (Not Detect.); Coronavirus 229E PCR Not Detected (Not Detect.); Coronavirus HKU1 PCR Not Detected (Not Detect.); Coronavirus NL63 PCR Not Detected (Not Detect.); Coronavirus OC43 PCR Not Detected (Not Detect.); RSV PCR Not Detected (Not Detect.); Rhino/Enterovirus PCR Not Detected (Not Detect.)
[2025-05-14 15:24] LABS: Influenza A H1 PCR Not Detected (Not Detect.); Influenza A H1-2009 PCR Not Detected (Not Detect.); Influenza A H3 PCR Not Detected (Not Detect.); SARS-CoV-2 PCR Not Detected (Not Detect.)
--- NOTE | 2025-05-14 17:28 | HO.PM.IMPN ---
Subjective Subjective Date of Service: 05/14/25 Interval History: Still feels like she is breathing through pudding Cough about the same Has been titrated to 2L home O2 BP soft this morning [place] too weak to be evaluated by PT this morning Review of Systems Review of Systems: Yes all other systems are reviewed and are negative Physical Exam Exam: Exam: General: AOx3, no acute distress Resp: CTA bilaterally, tough severely diminished and with poor airflow CVS: S1, S2, RRR GI: +BS, NT, no distention Skin: Warm, dry Neuro: Cranial nerves II-XII grossly intact bilaterally. Motor grossly intact bilaterally Extremities: No edema Psych: Appropriate affect Vital Signs: Vital Signs: Last Vital Signs Temp 97.3 F 05/14/25 15:45 Pulse 76 05/14/25 15:45 Resp 16 05/14/25 15:45 BP 116/54 L 05/14/25 15:45 Pulse Ox 96 05/14/25 15:45 O2 Del Method Nasal Cannula 05/14/25 15:45 O2 Flow Rate 2 05/14/25 15:45 Oxygen Flow Rate 5 05/13/25 15:06 BMI result Body Mass Index 40.0 Objective Data Active Medications Acetaminophen (Acetaminophen 325 Mg Tablet) 650 mg PO Q6H PRN PRN Reason: Pain, Mild 1-3,fever,headache Acetaminophen/Butalbital/Caffeine (Butalb/Acetamin/Caff 50/325/40 Tablet) 1 tab PO DAILY MRX1 PRN PRN Reason: Migraine Headache Albuterol Sulfate (Albuterol Sulfate 90 Mcg 8 Gm Inhaler) 2 puff INHALE Q4H PRN PRN Reason: shortness of breath Albuterol/Ipratropium (Albuterol/Iprat 2.5/0.5mg 3 Ml Ampul.Neb) 3 ml INHALE Q6H PRN PRN Reason: shortness of breath Last Admin: 05/14/25 13:30 Dose: 3 ml Documented By: JUAN C Aripiprazole (Aripiprazole 5 Mg Tablet) 5 mg PO DAILY@0600 [facility] Last Admin: 05/14/25 06:26 Dose: 5 mg Documented By: ELLE Aspirin (Aspirin Enteric Coated 81 Mg Tablet.) 81 mg PO DAILY@1999 [facility] Last Admin: 05/13/25 19:58 Dose: 81 mg Documented By: SARAH Atorvastatin Calcium (Atorvastatin Calcium 80 Mg Tablet) 80 mg PO DAILY@1999 [facility] Last Admin: 05/13/25 20:01 Dose: 80 mg Documented By: SARAH Baclofen (Baclofen 20 Mg Tablet) 20 mg PO TID@599, [facility] Last Admin: 05/14/25 11:40 Dose: 20 mg Documented By: MARC Calcium Carbonate (Calcium Carbonate 750 Mg Tab.Chew) 750 mg PO Q4H PRN PRN Reason: Heartburn Dicyclomine HCl (Dicyclomine Hcl 10 Mg Capsule) 20 mg PO QID PRN PRN Reason: ABDOMINAL DISCOMFORT Doxycycline Monohydrate (Doxycycline Monohydrate 100 Mg Capsule) 100 mg PO BID [facility] Last Admin: 05/14/25 09:28 Dose: 100 mg Documented By: MARC Duloxetine HCl (Duloxetine Hcl 60 Mg Capsule.Dr) 60 mg PO BID@ [facility] Last Admin: 05/14/25 06:25 Dose: 60 mg Documented By: ELLE Gabapentin (Gabapentin 400 Mg Capsule) 1,200 mg PO TID@599, [facility] Last Admin: 05/14/25 11:38 Dose: 1,200 mg Documented By: MARC Guaifenesin (Guaifenesin 200 Mg/10 Ml 10 Ml Liquid) 10 ml PO Q6H [facility] Last Admin: 05/14/25 14:22 Dose: 10 ml Documented By: MARC Hydromorphone HCl (Hydromorphone Hcl 2 Mg Tablet) 2 mg PO Q6H PRN PRN Reason: pain severe Last Admin: 05/14/25 09:33 Dose: 2 mg Documented By: MARC Lorazepam (Lorazepam 0.5 Mg Tablet) 0.5 mg PO BEDTIME@1999 [facility] Last Admin: 05/13/25 19:58 Dose: 0.5 mg Documented By: SARAH Lorazepam (Lorazepam 0.5 Mg Tablet) 0.5 mg PO DAILY PRN PRN Reason: Anxiety Last Admin: 05/14/25 14:26 Dose: 0.5 mg Documented By: MARC Magnesium Hydroxide (Milk Of Magnesia 30 Ml Oral.Susp) 30 ml PO DAILY PRN PRN Reason: Constipation Magnesium Oxide (Magnesium Oxide 400 Mg Tablet) 400 mg PO DAILY@0600 [facility] Last Admin: 05/14/25 06:26 Dose: 400 mg Documented By: ELLE Melatonin (Melatonin 3 Mg Tablet) 3 mg PO BEDTIME PRN PRN Reason: Insomnia Last Admin: 05/14/25 02:19 Dose: 3 mg Documented By: ELLE Non-Formulary Medication ([id number]-Pcgaqvgc-Tpkvtqjvjm [Breztri Aerosphere]) 2 inhalation INHALE BID@0600,1800 [facility] Nystatin (Nystatin Powder 15 Gm Bottle) 1 appl TOPICAL BID [facility]; Protocol Last Admin: 05/14/25 14:28 Dose: Not Given Documented By: MARC Non-Admin Reason: Med Not Available Omeprazole (Omeprazole 20 Mg Capsule.) 20 mg PO DAILY@06 [facility] Last Admin: 05/14/25 06:25 Dose: 20 mg Documented By: ELLE Oxcarbazepine (Oxcarbazepine 300 Mg Tablet) 300 mg PO BID@06,1999 [facility] Last Admin: 05/14/25 06:26 Dose: 300 mg Documented By: ELLE Oxycodone HCl (Oxycodone Hcl Immed Release 5 Mg Tablet) 5 mg PO Q6H PRN PRN Reason: Severe Pain (Scale Score 7-10) Last Admin: 05/13/25 19:04 Dose: 5 mg Documented By: REY Polyethylene Glycol (Polyethylene Glycol 3350 17 Gm Powd.Pack) 17 gm PO DAILY PRN PRN Reason: Constipation Polyethylene Glycol (Polyethylene Glycol 3350 17 Gm Powd.Pack) 17 gm PO DAILY [facility] Last Admin: 05/14/25 09:29 Dose: Not Given Documented By: MARC Non-Admin Reason: Patient Refused Prazosin HCl (Prazosin Hcl 1 Mg Capsule) 2 mg PO DAILY@1999 [facility]; Protocol Last Admin: 05/13/25 19:59 Dose: 2 mg Documented By: SARAH Prednisone (Prednisone 20 Mg Tablet) 60 mg PO DAILY [facility] Last Admin: 05/14/25 09:28 Dose: 60 mg Documented By: MARC Roflumilast (Roflumilast 500 Mcg Tablet) 500 mcg PO DAILY@0600 [facility] Last Admin: 05/14/25 06:26 Dose: 500 mcg Documented By: ELLE Senna (Sennosides 8.6 Mg Tablet) 17.2 mg PO BEDTIME [facility] Sodium Chloride (0.9 % Sodium Chloride Flush 3 Ml Syringe) 3 ml IVFLUSH QSHIFT [facility] Last Admin: 05/14/25 17:15 Dose: 3 ml Documented By: STONE Sodium Chloride (Sodium Chloride 0.65 % Nasal 44 Ml Sprbtl) 1 spray NOSTRIL-B Q1H PRN PRN Reason: Nasal dryness Valsartan (Valsartan 40 Mg Tablet) 40 mg PO DAILY@0600 [facility]; Protocol Last Admin: 05/14/25 06:37 Dose: Not Given Documented By: ELLE Non-Admin Reason: low BP Labs 05/14/25 08:43 05/14/25 08:43 Labs: Laboratory Results - last 24 hr 05/14/25 05/14/25 08:43 09:41 MCV 95.1 MCH 30.1 MCHC 31.6 RDW 15.1 Plt Count 412 H MPV 9.1 L Immature Gran % (Auto) 0.4 Neut % (Auto) 69.5 Lymph % (Auto) 17.4 L [place] % (Auto) 11.5 H Eos % (Auto) 0.9 Baso % (Auto) 0.3 Lymph # (Auto) 1.7 [place] # (Auto) 1.1 Eos # (Auto) 0.1 Baso # (Auto) 0.0 Abs Immat Gran (auto) 0.04 H Absolute Neuts (auto) 6.8 Absolute Nucleated RBC 0.000 Nucleated RBC % (auto) 0.0 Anion Gap 13 Estim Creat Clear Calc 93.0 Estimated GFR > 60 Random Glucose 112 Calcium 9.7 Magnesium 2.0 Respiratory Panel Marquez See Note Adenovirus (Rapid PCR) Not Detected B.pert (TEM-PCR) Not Detected B.parapertussis DNA PCR Not Detected C. pneumoniae DNA (PCR) Not Detected Coronavirus OC43 (PCR) Not Detected Coronavirus HKU1 (PCR) Not Detected Coronavirus 229E (PCR) Not Detected Coronavirus NL63 (PCR) Not Detected Human Metapneumovir PCR Not Detected Influenza A (RT-PCR) Not Detected Influenza A (H1) PCR Not Detected Influ A (H1/09) PCR Not Detected Influenza A (H3) PCR Not Detected Influenza B (RT-PCR) Not Detected M. pneumoniae (PCR) Not Detected Parainfluenza 1 (PCR) Not Detected Parainfluenza 2 (PCR) Not Detected Parainfluenza 3 (PCR) Not Detected Parainfluenza 4 (PCR) Not Detected RSV (PCR) Not Detected Entero/Rhino (PCR) Not Detected SARS-CoV-2 RNA (RT-PCR) Not Detected Microbiology Microbiology Results: Microbiology 05/13/25 07:25 Blood Culture - Preliminary Blood - Venous No growth after 24 hours. 05/13/25 07:14 Blood Culture - Preliminary Blood - Venous No growth after 24 hours. Assessment and Plan (1) Acute exacerbation of chronic obstructive pulmonary disease: Status: Acute Plan 60-year-old female with a history of HTN, HLD, smoker, asthma/COPD on home O2 1-3L baseline, [facility] home CPAP, trigeminal neuralgia, aortic stenosis, CHF, recent discharge 04/25 with acute hypoxic respiratory failure 2/2 COPD/CHF exacerbation, presents to hospital with complaints of shortness of breath, admitted with acute hypoxic respiratory failure 2/2 acute non infective exacerbation of COPD and superimposed acute CHFpEF >70% exacerbation. Acute on chronic hypoxic and hypercarbic respiratory failure Acute non infective exacerbation COPD Oxygen-dependent 1-3L [facility] on CPAP CXR negative for evidence of ongoing infection PLAN - doxycycline 100 mg b.i.d. p.o. empirically - prednisone 60 mg OD p.o. - DuoNebs - albuterol p.r.n. - oxygen as prescribed 1-3L - CPAP nightly - guaifenesin for cough - respiratory viral panel ordered; airborne precautions for now Question of acute exacerbation of HFpEF > 70% Describes shortness of breath, easy fatigability, cough productive of white sputum Pt with upper and lower extremity edema NT proBNP x2 negative: 92.3 and 87.4 Chest x-ray negative for acute cardiopulmonary findings; no pulmonary edema or pleural effusion Repeat ECHO with hyperdaynamic LVEF >70, similar to prior Lasix IV stopped due to soft BP; continue home Lasix Treat as above for COPD exacerbation CHRONIC MEDICAL ISSUES History of CVA History of CAD - aspirin 81 mg OD p.o. - atorvastatin 80 mg OD p.o. MDD/HELENA - duloxetine 60 mg OD p.o. - Aripiprazole GERD - omeprazole 20 mg OD p.o. Seizure disorder - Oxcarbazepine 300 mg b.i.d. p.o. HTN - Valsartan 40 mg OD p.o. - Hold verapamil 120 b.i.d. p.o.; resume for worsening HTN Chronic pain Disorder Trigeminal Neuralgia Peripheral Neuropathy - Oxycodone PRN - Baclofen held - Tylenol PRN - Gabapentin - VTE: Enoxaparin 40 mg - CODE STATUS: Full code - DIET: Cardiac diet Pt requires continued hospitalization due to continued dyspnea and SOB. Plan is to have PT evaluation with likely discharge tomorrow. Quality Stroke Does the patient have a stroke diagnosis?: No VTE Prior VTE?: No VTE Risk Level:: Medical - moderate - high VTE Device Contraindication: N/A - Device Ordered VTE Drug Contraindication: N/A - Med Ordered
[2025-05-14] MEDS: Aspirin Enteric Coated 81 MG TABLET.DR PO (20:05)
[2025-05-14] MEDS: oxyCODONE HCl Immed Release 5 MG TABLET PO (23:32)
[2025-05-15] VITALS (8 sets, daily range): BP systolic 102–151; BP diastolic 54–67; PULSE 72–86; RESP 16–18; TEMP 36.2–36.7; O2SAT 94–98
[2025-05-15] MEDS: Albuterol/Iprat 2.5/0.5MG 3 ML AMPUL.NEB INHALE (01:38)
[2025-05-15 07:17] LABS: Anion Gap 13 (12-20); Blood Urea Nitrogen 14 mg/dL (9-16); Calcium 9.4 mg/dL (8.4-10.2); Carbon Dioxide 31 mmol/L (22-29); Chloride 104 mmol/L (96-108); Creatinine Clr Calc Pharmacy 95.7; Estimated Glomerular Filt Rate > 60; Magnesium 1.9 mg/dL (1.6-2.6); Potassium 3.7 mmol/L (3.3-5.1); Sodium 144 mmol/L (135-145)
[2025-05-15] MEDS: oxyCODONE HCl Immed Release 5 MG TABLET PO (08:51)
[2025-05-15] MEDS: guaiFENesin 200 MG/10 ML 10 ML LIQUID PO (08:51)
[2025-05-15] MEDS: 0.9 % Sodium Chloride Flush 3 ML SYRINGE IVFLUSH (09:03)
--- NOTE | 2025-05-15 10:25 | MHC.CM.PN ---
CM MET WITH PATIENT YESTERDAY, WHO STATES THAT SHE WAS DC FROM [facility] THE DAY PRIOR TO . HCP ON FILE. SHE ASKED FOR REFERRAL BACK OT [facility] AND THEN REQUESTED [facility] CHOICE. BOTH REFERRALS PLACED. SHE WILL NEED AMBULANCE TRANSPORT TO REHAB. PLAN IS DC TODAY
--- NOTE | 2025-05-15 10:30 | MHC.CM.PN ---
CM met with Patient at bedside to discuss PT's recommendation for STR; Patient dose not want to go to STR she wants to return home and resume [facility](they have been made aware of today's dcO). Patient is calling her for transport; MD & RN are aware.
--- NOTE | 2025-05-15 11:42 | P.DS_ITS ---
DS: Providers Provider Date of Service: 05/15/25 Date of admission: 05/13/25 09:13 Date of discharge: 05/15/25 Primary care physician: Unknown Physician DS: Diagnosis Discharge Diagnosis (1) Acute exacerbation of chronic obstructive pulmonary disease: Status: Acute DS: Summary Hospital Course Hospital Course: From admission HPI: Date of Service: 05/13/25 Chief Complaint: Shortness of breath 60-year-old female with a history of HTN, HLD, smoker, asthma/COPD on home O2 1- 3L baseline, [facility] home CPAP, trigeminal neuralgia, aortic stenosis, CHF, recent discharge 04/25 with acute hypoxic respiratory failure 2/2 COPD/CHF exacerbation, presents to hospital with complaints of shortness of breath. Multiple recent hospitalizations: - March 01 - March 02 - March 13 - March 19 - April 08 - April 09 - April 12 - April 13 - April 16 - April 17 - April 20 - April 25 Patient was recently discharged 04/25/2025 with acute hypoxic respiratory failure 2/2 COPD and CHF exacerbation. She was discharged to short-term rehabilitation, which she completed 05/08/25, along with a prednisone taper (end 05/08) . She completed her prednisone taper yesterday, and returned home without issue. Patient reports last night while using CPAP she noted that her oxygen saturations were very low. She became abruptly short of breath, EMS was contacted. EMS applied CPAP mask, as well as methylprednisolone 125 mg and DuoNebs. Transported to hospital Patient reports progressively worsening cough productive of clear/milky phlegm for the past few days, exercise intolerance, easy fatigability. The patient denies fevers, chills, rigors, purulent sputum. Denies chest pain, palpitations, dizziness, diaphoresis Denies nausea, vomiting, hemoptysis. Reports compliance with her medications. ED course: Patient received albuterol/ipratropium inhaler, ceftriaxone, azithromycin, magnesium sulfate. There was an order for lactated Ringer, however the patient did not receive it Diagnostics reveal no leukocytosis, without neutrophilic shift, unremarkable electrolytes, creatinine 0.7 at baseline. She was noted to have a mildly elevated lactic acid of 2.2, and CRP of 1.5 Chest x-ray report is unremarkable for acute intrathoracic abnormality Hospital Course The pt was admitted to the hospital for acute on chronic hypoxic respiratory failure that was initially concerning for possible CHF exacerbation due to lower leg edema. CXR was negative for acute cardiopulmonary process, and serial NT pro BNP readings were WNL. Pt was started on IV Lasix, but these were soon stopped after patient's BP became soft. Pt was treated with p.o. prednisone and empirically covered with doxycycline. Ultimately, pt's acute on chronic hypoxic respiratory in the setting of COPD exacerbation had undetermined aggravating etiology: CXR negative for pneumonia or pulmonary edema, and respiratory panel was negative. Pt did undergo a repeat echo which had similar findings to previous. Pt was seen and evaluated by PT who recommended discharge to short- term rehab, however, pt declined these services and instead wished to be discharged home. Pt will be discharged on doxycycline 100 mg b.i.d. x5 days as well as a short prednisone taper. 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 Time Attestation Discharge Coordination Time (in mins): 35 Quality: Safe Use of Opioids Does Pt have an Active Cancer Diagnosis on the Problem List?: No Quality: Stroke Does the patient have a stroke diagnosis?: No Physical Exam Exam: Exam: General: AOx3, no acute distress Resp: Diffuse mild coarse breath sounds, and overall diminished CVS: S1, S2, RRR GI: +BS, NT, no distention Skin: Warm, dry Neuro: Cranial nerves II-XII grossly intact bilaterally. Motor grossly intact bilaterally Extremities: Trace bilateral pitting edema Psych: Appropriate affect Vital Signs: Vital Signs: Last Vital Signs Temp 97.1 F 05/15/25 11:04 Pulse 86 05/15/25 11:04 Resp 16 05/15/25 11:04 BP 115/58 L 05/15/25 11:04 Pulse Ox 94 05/15/25 11:04 O2 Del Method Nasal Cannula 05/15/25 11:04 O2 Flow Rate 2 05/15/25 11:04 Oxygen Flow Rate 5 05/13/25 15:06 BMI result Body Mass Index 40.0 DS: Data Data Completed and Pending Completed studies during hospitalization [Text1]: Procedures Assistance with Respiratory Ventilation, Less than 24 Consecutive Hours, Continuous Positive Airway Pressure (03/13/25) Introduction of Vasopressor into Peripheral Vein, Percutaneous Approach (12/01/24) Labs on day of discharge: Laboratory Results - last 24 hr 05/14/25 05/15/25 09:41 06:31 Sodium 144 Potassium 3.7 Chloride 104 Carbon Dioxide 31 H Anion Gap 13 BUN 14 Creatinine 0.67 Estim Creat Clear Calc 95.7 Estimated GFR > 60 Random Glucose 99 Calcium 9.4 Magnesium 1.9 Respiratory Panel Marquez See Note Adenovirus (Rapid PCR) Not Detected B.pert (TEM-PCR) Not Detected B.parapertussis DNA PCR Not Detected C. pneumoniae DNA (PCR) Not Detected Coronavirus OC43 (PCR) Not Detected Coronavirus HKU1 (PCR) Not Detected Coronavirus 229E (PCR) Not Detected Coronavirus NL63 (PCR) Not Detected Human Metapneumovir PCR Not Detected Influenza A (RT-PCR) Not Detected Influenza A (H1) PCR Not Detected Influ A (H1/09) PCR Not Detected Influenza A (H3) PCR Not Detected Influenza B (RT-PCR) Not Detected M. pneumoniae (PCR) Not Detected Parainfluenza 1 (PCR) Not Detected Parainfluenza 2 (PCR) Not Detected Parainfluenza 3 (PCR) Not Detected Parainfluenza 4 (PCR) Not Detected RSV (PCR) Not Detected Entero/Rhino (PCR) Not Detected SARS-CoV-2 RNA (RT-PCR) Not Detected Preliminary micro results at discharge 05/13/25 07:25 Blood Culture - Preliminary Blood - Venous No growth after 48 hours. 05/13/25 07:14 Blood Culture - Preliminary Blood - Venous No growth after 48 hours. Discharge Plan Discharge Anticipated Discharge Date/Time: 05/15/25 10:46 Patient Disposition: Home Health Service Discharge Diagnosis: Acute on chronic hypoxic respiratory failure in the setting of COPD exacerbation Referrals: Alex [Outside] - 1 Week Physician,Cindy J [Primary Care Provider, Medical] - 1 Week Discharge Medications: New doxycycline monohydrate 100 mg capsule 100 mg PO BID Qty: 10 0RF Rx Instructions: Take 1 tablet twice a day with food for the next 5 days, ending 05/20. prednisone 20 mg tablet 40 mg PO DAILY Qty: 8 0RF Rx Instructions: Take 40 mg (2 tabs) daily x3 days and then 20 mg (1 tab) daily for an additional 2 days Continued ipratropium-albuterol 0.5 mg-3 mg(2.5 mg base)/3 mL solution for nebulization 3 ml inhalation Q4H PRN (Reason: for dyspnea) Qty: 180 11RF baclofen 20 mg tablet 20 mg PO TID@0600,1200,1999 aripiprazole [Abilify] 5 mg tablet 5 mg PO DAILY@0600 oxcarbazepine 300 mg tablet 300 mg PO BID@0600,1999 acetaminophen 650 mg Tablet Extended Release 1,300 mg PO Q8H PRN (Reason: Pain) magnesium oxide 400 mg magnesium Tablet 400 mg PO DAILY@0600 oxycodone 5 mg tablet 5 mg PO Q6H PRN (Reason: Severe Pain (Scale Score 7-10)) melatonin 3 mg Tablet 3 mg PO BEDTIME PRN (Reason: Insomnia) atorvastatin 80 mg tablet 80 mg PO DAILY@1999 [id number]-ylrdvulxxrejg-albt 50-325-40 mg tablet 1 tab PO DAILY MRX1 PRN (Reason: Migraine Headache) hyoscyamine sulfate 0.125 mg tablet 0.25 mg PO Q6H PRN (Reason: Abdominal Discomfort) gabapentin 300 mg capsule 1,200 mg PO TID@0600,1200,1999 duloxetine 60 mg capsule,delayed release(DR/EC) 60 mg PO BID@0600,1999 (DME) nebulizer and compressor Device See Rx Instructions .Route Qty: 1 0RF Rx Instructions: As directed albuterol sulfate 90 mcg/actuation HFA aerosol inhaler 2 puff inhalation Q4H PRN (Reason: Shortness Of Breath Or Wheezing) aspirin 81 mg tablet,delayed release (DR/EC) 81 mg PO DAILY@1999 polyethylene glycol 3350 [Miralax] 17 gram/dose Powder 17 g PO DAILY PRN (Reason: Constipation) lorazepam 0.5 mg tablet 0.5 mg PO BEDTIME@1999 Breztri Aerosphere 160-9-4.8 mcg/actuation HFA aerosol inhaler 2 inh inhalation BID@0600,1800 lorazepam 0.5 mg tablet 0.5 mg PO DAILY PRN (Reason: Anxiety) verapamil 120 mg tablet 120 mg PO BID@0600,1999 valsartan 40 mg tablet 40 mg PO DAILY@0600 Protocol: Hold for SBP< HOLD for SBP < : 90 roflumilast [Daliresp] 500 mcg tablet 500 mcg PO DAILY@0600 prednisone 5 mg tablet 5 mg PO Q48H Rx Instructions: Patient takes on even days omeprazole 20 mg capsule,delayed release(DR/EC) 20 mg PO DAILY@0600 hydromorphone [Dilaudid] 2 mg tablet 2 mg PO Q6H Qty: 16 0RF Rx Instructions: Partial Fill upon patient request. Anbesol (benzocaine) Max Str 20 % Gel 1 appl mucous membrane QID PRN (Reason: tooth pain) Qty: 1 0RF Protocol: Apply to: Apply to: tooth and gums furosemide 40 mg tablet 40 mg PO DAILY@0600 Protocol: Hold for SBP< HOLD for SBP < : 90 chlorhexidine gluconate 0.12 % mouthwash 15 ml buccal BID@06,20 calcium carbonate-vitamin D3 600 mg-5 mcg (200 unit) tablet 1 tab PO DAILY@1999 prazosin 2 mg capsule 2 mg PO DAILY@1999 (DME) Oxygen Home Use Kit See Rx Instructions .Route Rx Instructions: As directed Discharge Orders: Discharge Order (Routine); Ordered 05/15/25 Ordered By: Edward Pearce Activity on Discharge: As tolerated Stand Alone Forms: Patient Portal Discharge page Print Language: Hong [place]er Care Plan Goals: See below Health Concerns: Acute on chronic hypoxic and hypercapnic respiratory failure COPD exacerbation CHF Plan of Treatment: You were admitted to the hospital for acute on chronic hypoxic respiratory failure that initially was concerning for possible CHF exacerbation. You were initially given IV Lasix but these were then stopped after chest x-ray was negative for either pneumonia or CHF findings. Your BNP was also low and within normal limits. You did have lower extremity edema, though this improved with Lasix and elevation of her feet. You were empirically given doxycycline, though there was no indication of an active infection. Your viral and respiratory panel was also negative. At time of discharge you were back to your baseline 2 L nasal cannula and satting at 96-98%. You were seen and evaluated by Physical therapy who recommended short-term rehab, but you declined and wished to instead be discharged home. -- you will be discharged on doxycycline 100 mg twice a day for the next 5 days, ending 05/20 -- take prednisone 40 mg daily for the next 3 days, then 20 mg daily for an additional 2 days -- follow up with pulmonology in 1-2 weeks -- continue all of your other home medications Assessment: See discharge summary
--- NOTE | 2025-05-15 13:06 | W.MHC.F2F ---
Service Date Service Date: 05/15/25 Encounter Date of encounter: 05/15/25 Reasons for Services Signs and symptoms assessed: Physical deconditioning, chronic SOB with ambulation Reason for nursing home: medication management Reason for physical therapy: home safety and mobility, therapeutic exercises and ADL training Homebound: Leaving the home is medically contraindicated at this time without the asist of a device and/or another person due th the listed conditions above and below. Reason homebound: unsteady gait / fall risk, shortness of breath with minimal effort, poor balance / fall risk, shortness of breath at rest and weakness related to hospital stay Certification: Based on the above findings, I certify that this patient is confined to the home and needs intermittent nursing home care, physical therapy and/or speech therapy, or continues to need occupational therapy. The patient is under my care, and I have initiated the establishment of the plan of care. The patient will be followed by a physician who will periodically review the plan of care. Time Spent With Patient Time: Total time managing care of this patient today ____ minutes.
== END 2025-05-15 13:30 | disposition home health service (06) | DRG 140 ==
LOC: HO.ED 08:53 → HO.EDOVER 09:14 → HO.IMC 20:42
PROVIDERS: Admitting Provider Hospitalist; Emergency Provider Emergency Medicine; PCP Physician Assistant Surgical; Visit Provider Student in an Organized Health Care Education/Training Program
DX: J44.1 Chronic obstructive pulmonary disease with (acute) exacerbation (principal); J96.21 Acute and chronic respiratory failure with hypoxia; I50.33 Acute on chronic diastolic (congestive) heart failure; I11.0 Hypertensive heart disease with heart failure; Z99.81 Dependence on supplemental oxygen; E66.2 Morbid (severe) obesity with alveolar hypoventilation; Z20.822 Contact with and (suspected) exposure to COVID-19; I25.10 Atherosclerotic heart disease of native coronary artery without angina pectoris; Z86.73 Personal history of transient ischemic attack (TIA), and cerebral infarction without residual deficits; G40.909 Epilepsy, unspecified, not intractable, without status epilepticus; F41.1 Generalized anxiety disorder; F32.9 Major depressive disorder, single episode, unspecified; J96.22 Acute and chronic respiratory failure with hypercapnia; G50.0 Trigeminal neuralgia; G62.9 Polyneuropathy, unspecified; G89.29 Other chronic pain; Z68.41 Body mass index [BMI] 40.0-44.9, adult; Z79.52 Long term (current) use of systemic steroids; Z87.891 Personal history of nicotine dependence; Z79.82 Long term (current) use of aspirin; Z79.899 Other long term (current) drug therapy
CPT/HCPCS: 36415; 71045; 80048; 80053; 83605; 83735; 83880; 84484; 85025; 85610; 86140; 87040; 87502; 87633; 87635; 93005; 93306; 94640; 94660; 97162; 99285; J0456; J0696; J1650; J1938; J3475; J7120; Q9957

== ENCOUNTER → 2025-05-13 05:36 | Outpatient (BNV) | payer BC, SELFPAY | PROVIDERS: Admitting Provider Hospitalist; Emergency Provider Emergency Medicine; Visit Provider Internal Medicine | DX: R06.02 Shortness of breath (principal) | CPT/HCPCS: 93010 ==

== ENCOUNTER → 2025-05-13 06:06 | Outpatient (BNV) | payer BC, SELFPAY | PROVIDERS: Emergency Provider Emergency Medicine; Visit Provider Radiology Vascular & Interventional Radiology | DX: R06.03 Acute respiratory distress (principal) | CPT/HCPCS: 71045 ==

== ENCOUNTER 2025-05-13 09:13 | Outpatient (BNV) | payer BC, SELFPAY | END 2025-05-14 07:00 | PROVIDERS: Admitting Provider Hospitalist; Emergency Provider Emergency Medicine; Visit Provider Internal Medicine | DX: I35.8 Other nonrheumatic aortic valve disorders (principal); I51.89 Other ill-defined heart diseases | CPT/HCPCS: 93306 ==

== ENCOUNTER → 2025-05-13 09:13 | Outpatient (BNV) | payer BC, SELFPAY | PROVIDERS: Admitting Provider Hospitalist; Emergency Provider Emergency Medicine; Visit Provider Hospitalist | DX: J96.21 Acute and chronic respiratory failure with hypoxia (principal); J44.1 Chronic obstructive pulmonary disease with (acute) exacerbation | CPT/HCPCS: 99222; 99233; 99239; G0180 ==

== ENCOUNTER 2025-05-22 08:39 | Outpatient (AMB) | payer BC, SELFPAY ==
--- NOTE | 2025-05-22 08:53 | MHC.OFFVIS ---
Vital Signs 05/22/25 08:54 Height 5 ft 2 in BP 110/52 L Blood Pressure Location Lt brachial Position Sitting Pulse 76 Pulse Source Pulse Oximeter Intake Visit Reasons: 3 mth fu Psychometric Examiner Required: No Balance And Hairspring Assembler: Balance And Hairspring Assembler Present Allergies Iodinated Contrast Media (IV CONTRAST) Allergy (Intermediate, Verified 05/22/25 08:58) HIVES latex (LATEX) Allergy (Unknown, Verified 05/22/25 08:58) RASH adhesive tape Allergy (Verified 05/22/25 08:58) Rash morphine (MORPHINE) Adverse Reaction (Unknown, Verified 05/22/25 08:58) VOMITING Medication List - Last Reconciled 05/22/25 by JENNIFER SepulvedaC acetaminophen ER 1,300 mg PO Q8H PRN albuterol sulfate 90 mcg/actuation 2 puffs inhalation Q4H PRN aripiprazole (Abilify) 5 mg PO DAILY@0600 aspirin 81 mg PO DAILY@1999 atorvastatin 80 mg PO DAILY@1999 baclofen 20 mg PO TID@0600,1199,1999 benzocaine 20% (Anbesol (benzocaine) Maximum Strength) 1 appl See Protocol mucous membrane QID PRN iioeokhtov-ehmrebuv-bcuwnjumpz 160-9-4.8 mcg/actuation (Breztri Aerosphere) 2 inhalations inhalation BID@0600,1800 ryseewhnyp-ztchgboayurll-mskl 50-325-40 mg 1 tab PO DAILY MRX1 PRN calcium carbonate-vitamin D3 600 mg-5 mcg (200 unit) 1 tab PO DAILY@1999 chlorhexidine gluconate 0.12% 15 mL buccal BID@,20 doxycycline monohydrate 100 mg PO BID duloxetine 60 mg PO BID@0600,1999 furosemide 40 mg See Protocol PO DAILY@0600 gabapentin 1,200 mg PO TID@0600,1200,1999 hydromorphone (Dilaudid) 2 mg PO Q6H hyoscyamine sulfate 0.25 mg PO Q6H PRN ipratropium-albuterol 0.5 mg-3 mg(2.5 mg base)/3 mL 3 mL inhalation Q4H PRN lorazepam 0.5 mg PO DAILY PRN lorazepam 0.5 mg PO BEDTIME@1999 magnesium oxide 400 mg PO DAILY@0600 melatonin 3 mg PO BEDTIME PRN nebulizer and compressor As directed omeprazole 20 mg PO DAILY@0600 oxcarbazepine 300 mg PO BID@599,1999 oxycodone 5 mg PO Q6H PRN Oxygen Home Use As directed polyethylene glycol 3350 (Miralax) 17 grams PO DAILY PRN prazosin 2 mg PO DAILY@1999 prednisone 5 mg PO Q48H prednisone 40 mg (2 x 20 mg) PO DAILY roflumilast (Daliresp) 500 mcg PO DAILY@0600 valsartan 40 mg See Protocol PO DAILY@0600 verapamil 120 mg PO BID@599,1999 HPI HPI 3 mth fu: Details: Zulma is a 60-year-old female past medical history of morbid obesity, hypertension, hyperlipidemia, COPD with chronic hypoxic respiratory failure, mild aortic stenosis, newer diastolic heart failure who has been admitted to [facility] on several occasions since last visit in June with COPD exacerbation, acute on chronic respiratory failure. She now presents for follow-up after recent hospital discharge. Today she reports that she has been having some lightheadedness when she walks short distances. She also says she has some lightheadedness when sitting. She has not had any presyncope, syncope or falls. She is mostly sedentary. She has chronic shortness of breath with activity and wears her oxygen continually. Her breathing has been stable since her hospital discharge. She has no chest discomfort at rest or with activity. She does get some mild leg edema and currently has sock markings. She monitors her blood pressure at home and holds her verapamil if the systolic reading is less than 120. She tells me she back on Lasix for a few more days then it will be stopped. She tries to hydrate well. Takes meds as directed. [facility] Medical History Chronic lung disease Morbid obesity Pulmonary nodules Diastolic heart failure Chronic lung disease Hypoxia Panic disorder Hypertension Chronic hypercapnic respiratory failure Aortic stenosis Asthma Hypogammaglobulinemia Smoker JUANITO (obstructive sleep apnea) Elevated troponin COPD (chronic obstructive pulmonary disease) Trigeminal neuralgia Mixed hyperlipidemia Peripheral neuropathy Tobacco use disorder Mood disorder Surgical History History of esophagogastroduodenoscopy (EGD) History of colonoscopy History of lumbar discectomy History of tubal ligation History of excision of mass History of shoulder surgery Social History Household Members: Spouse Household Members Other:: dog Housing: Condominium Do you presently have visiting nurse or other home services: Yes ([facility]) Alcohol intake: current Alcohol intake frequency: holidays/special occasions only Alcohol type: hard liquor Comment: pt refusing alarms and assistance OOB Patient Tobacco Use Status: Former Tobacco user Tobacco use type: Cigarette Cigarette Packs Per Day: 4 Cigarettes Per Day: 80.0 Years Smoked: 40 e-Cigarette/Vaping Use: Never Used Second Hand Smoke Exposure: No Substance Use Type: Marijuana Advance Directives Date on File: 03/09/23 service: No Review of Systems Const All systems reviewed & are unremarkable except as noted in HPI and below ENT Denies dizziness Card Details: wearing O2 with nasal cannula Denies chest pain, Denies chest pain at rest, Denies chest pain with activity, Denies rapid heart rate, Denies pedal edema, Denies edema, Denies leg edema, Denies lightheadedness, Denies palpitations, Reports dyspnea, Reports dyspnea on exertion and Reports orthopnea Resp Denies cough, Reports dyspnea and Reports dyspnea on exertion GI Denies hematochezia and Denies change in stool character Musc Reports abnormal gait (sitting in wheelchair), Denies limited range of motion, Denies muscle cramps, Denies muscle weakness, Denies numbness, Denies radiating pain into limb, Denies stiffness and Denies tingling Neuro Reports abnormal gait (sitting in wheelchair), Denies dizziness, Denies numbness and Denies tingling Endo Denies palpitations Physical Exam Vital Signs: Last Vital Signs Pulse 76 05/22/25 08:54 BP 110/52 L 05/22/25 08:54 Const General: cooperative, comfortable and no acute distress Orientation/consciousness: patient oriented x3 Neck Neck: Yes normal visual inspection Resp Effort & Inspection: normal respiratory effort Auscultation: clear to auscultation bilaterally, no rales, no rhonchi and no wheezes Cardio Rate: regular rate Rhythm: regular rhythm Heart sounds: S1 normal heart sound present, S2 normal heart sound present, no gallops, Murmur heart sound present (faint systolic) and no rubs Neuro General: patient oriented x3 Extrem General: Yes normal to inspection Psych Appearance: grossly normal Mental Status: mental status grossly normal Speech and movement: Normal speech and movement present Assessment & Plan Assessment & Plan (1) Diastolic heart failure: Code(s): I50.30 - Unspecified diastolic (congestive) heart failure Category: Medical Qualifiers: Heart failure chronicity: chronic Qualified Code(s): I50.32 - Chronic diastolic (congestive) heart failure Plan: Diastolic heart failure being managed with Lasix 20mg daily. Recent [facility] admission with COPD exacerbation, without decompensated heart failure. Continued on her usual Lasix. Last echo 05/14/2025 shows EF greater than 70% no significant valve abnormalities, slight elevated gradient across the aortic valve due to high stroke volume. She is not fluid overloaded on examination today. Reviewed low-salt diet. Signs and symptoms of heart failure reviewed with her. Cardiology follow-up 3 months, sooner if needed (2) Chronic lung disease: Onset Date: ~05/13/25 Code(s): J98.4 - Other disorders of lung Category: Medical Plan: COPD, hypoxic respiratory failure followed by Dr. Henriquez. Dominick on examination today. (3) Acute hypoxemic respiratory failure: Code(s): J96.01 - Acute respiratory failure with hypoxia Category: Medical Plan: As above. (4) Aortic stenosis: Code(s): I35.0 - Nonrheumatic aortic (valve) stenosis Category: Medical Qualifiers: Cardiac valve disease etiology: etiology unspecified Qualified Code(s): I35.0 - Nonrheumatic aortic (valve) stenosis Plan: Echocardiogram from November shows moderate aortic stenosis however repeat echocardiogram 02/06/2025 shows mild aortic stenosis. Echocardiogram done 05/14/2025 is showing elevated gradients across the aortic valve due to high stroke volume, doubt any significant stenosis. Murmur is noted on exam. Reviewed with her, copy of most recent echo results given to her. (5) Hypertension: Code(s): I10 - Essential (primary) hypertension Category: Medical Qualifiers: Hypertension type: primary hypertension Qualified Code(s): I10 - Essential (primary) hypertension Plan: Blood pressure goal less than 130/80, blood pressure on low side today. She is reporting lightheadedness when she is upright and walking. She is asking about a reduction in her blood pressure lowering agents. She is currently on verapamil 120 mg b.i.d.. Will reduce this to XL 180 mg daily. Continue valsartan. Continue periodic home blood pressure monitoring. (6) Hospital discharge follow-up: Code(s): Z09 - Encounter for follow-up examination after completed treatment for conditions other than malignant neoplasm Category: Medical Plan: Discharge summaries reviewed Plan I reviewed the patient's recent echocardiogram results with her, explaining that her aortic stenosis is not significant and is not the cause of her symptoms, and therefore, a TAVR procedure is not needed at this time. I provided her with a copy of the report. We discussed that her dizziness is likely a result of her blood pressure being low, possibly from her medications. We agreed to adjust the dose of her verapamil. To accommodate her monthly pill organizer, I will send the new prescription to the pharmacy with instructions to delay the fill for 2-3 weeks. We also discussed management of her fluid retention with short-term diuretic use and the importance of monitoring for fluid buildup after stopping the medication. I recommended she return for a follow-up visit in three months to reassess her blood pressure, or sooner if her symptoms worsen. Medications: New verapamil ER Adjusting dose Stop 120mg bid and change to 180mg once daily ( doesnt want to make change for 2 weeks) 180 mg PO DAILY 30 tabs 5RF Patient Instructions: - Your recent heart ultrasound shows that your aortic valve condition is not severe and does not require surgery at this time. - Your dizziness is likely caused by low blood pressure from your medications, not your heart valve. - We are adjusting the dose of your blood pressure medicine, verapamil. - Since your pills are already sorted for the month, you can wait three weeks to start the new dose when you get the new prescription filled. - Finish the current course of your water pill (furosemide) as directed. - After stopping the water pill, watch for signs of fluid buildup like increased leg swelling. - If you notice fluid building up again, you may need to take the water pill for a few days as needed. Your doctor will provide you with a prescription for this. - Please make a follow-up appointment in three months to check your blood pressure. Call sooner if your symptoms get worse. Patient was informed and verbally consented to the use of an ambient scribe for clinic note documentation during this visit. Visit time spent on chart review, interview, assessment, orders, documentation. Coding Level of Care Code Est Pt Level 4 (69195) Complex visit Add On G2211 Diagnoses Chronic diastolic heart failure I50.32 Heart failure chronicity: chronic Chronic lung disease J98.4 Acute hypoxemic respiratory failure J96.01 Aortic valve stenosis, etiology of cardiac valve disease unspecified I35.0 Cardiac valve disease etiology: etiology unspecified Primary hypertension I10 Hypertension type: primary hypertension Hospital discharge follow-up Z09 Time Spent (min) 32
[2025-05-22 08:54] VITALS: BP 110/52; PULSE 76
== END 2025-05-22 09:37 | disposition home or self-care (01) ==
LOC: HO.HCS 08:40
PROVIDERS: PCP Registered Nurse; Visit Provider Nurse Practitioner Family
DX: I50.32 Chronic diastolic (congestive) heart failure (principal); J98.4 Other disorders of lung; J96.01 Acute respiratory failure with hypoxia; I35.0 Nonrheumatic aortic (valve) stenosis; I10 Essential (primary) hypertension; Z09 Encounter for follow-up examination after completed treatment for conditions other than malignant neoplasm
CPT/HCPCS: 99214

== ENCOUNTER 2025-05-29 15:35 | Emergency (ER) | payer BC, SELFPAY ==
--- OUTSIDE RECORDS SUMMARY | 2025-05-17 10:30 | XMS_ITS | Encounter Summary ---
Author Organization [facility] Address [address] [place] [address] Phone Care Team Providers Care Hasher Operator Name Role Phone Jn Cardoza MD Unavailable Denys Henriquez MD Unavailable Antione Segura PA-C Primary Care Provider Rhett Cortez MD Unavailable Reason for Visit * Auth/Cert (Routine) Specialty Diagnoses / Procedures Referred By Dary smith Referred To Contact Referral ID Status Reason Start Date Expiration Date Visits Re quested Visits Authorized [id number] 1 1 Encounter Details Date Type Department Care Team (Late st Contact Info) Description 05/17/2025 10:30 AM EST Home Care Visit [facility] [address] [place] [address] Shakira Hand, HUA [address] [place], [place] [phone] [email or web address] SN OASIS START OF CARE (SOC) Social [...] Date Recorded Lack of Transportation (Medical) No 05/17/2025 Lack of Transportation (Non-Medical) No 05/17/2025 Patient Unable or Declines to Respond No 05/17/2025 Child or Family Care Answer Date Record [...] Sign Reading Time Taken Comments Blood Pressure 140/78 05/17/2025 11:14 AM EST Pulse 71 05/17/2025 11:14 AM EST Temperature 36.5 C (97.7 F) 05/17/2025 11:14 AM EST Respiratory Rate 20 05/17/2025 11:14 AM EST Oxygen Saturation 97% 05/17/2025 11:14 AM EST Inhaled Oxygen Concentration - - Weight - - Height - - Body Mass Index - - documented in this encounter Plan of Treatment Upcoming Encounters Date Type Department Care Team (Late st Contact Info) Description 05/31/2025 2:00 AM EST Appointment [facility] [address] [place] [address] Shakira Hand, HUA [address] [place] [address] [email or web address] 05/31/2025 11:30 AM EST Appointment [facility] [address] [place], [place] [phone] Raisa Bautista [address] [place] [address] [email or web address] 06/04/2025 12:30 AM EST Appointment [facility] [address] [place] [address] Shakira Hand RN [address] [place] [address] [email or web address] 06/05/2025 1:00 AM EST Appointment [facility] [address] [place] [address] Lily Raisa M [address] [place] [address] [email or web address] 06/06/2025 12:30 AM EST Appointment [facility] [address] [place] [phone] Illy Raisa M [address] [place] [address] [email or web address] 06/12/2025 1:30 AM EST Appointment [facility] [address] [place] [phone] Shakira Hand RN [address] [place] [address] [email or web address] 06/12/2025 2:00 AM EST Appointment [facility] [address] [place] [phone] Lily, Raisa M [address] [place] [address] [email or web address] 06/13/2025 2:[address] [facility] [address] [place] [phone] Antione Segura PA-C [address] [place] [address] [email or web address] 06/14/2025 1:00 AM EST Appointment [facility] [address] [place] [phone] Lily Raisa M [address] [place] [address] [email or web address] 06/19/2025 1:00 AM EST Appointment [facility] [address] [place] [phone] Raisa Bautista M [address] [place] [address] 06/19/2025 2:00 AM EST Appointment [facility] [address] [place] [phone] Shakira Hand RN [address] [place] [address] 06/21/2025 1:00 AM EST Appointment [facility] [address] [place] [phone] Raisa Bautista [address] [place] [address] 06/25/2025 9:30 AM EST Telemedicine [facility] Neurology Clinic [address] [place] [address] Jn Cardoza MD [address] [place] [address], [address] [place] [address] 06/26/2025 1:00 AM EST Appointment [facility] [address] [place] [phone] Raisa Bautista [address] [place] [address] 06/27/2025 Appointment [facility] [address] [place] [phone] Shakira Hand RN [address] [place] [address] 06/28/2025 1:00 AM EST Appointment [facility] [address] [place] [phone] Raisa Bautista [address] [place] [address] 07/03/2025 1:00 AM EST Appointment [facility] [address] [place], [place] [phone] Raisa Bautista [address] [place] [address] 07/03/2025 1:00 PM EST Office Visit [facility] Pulmonology, Allergy and Critical Care Medicine Clinic [address] [facility] [place] [address] Celso Akins MD [address] [place] [address] 07/04/2025 Appointment [facility] [address] [place], [place] [phone] Shakira Hand RN [address] [place] [address] 07/04/2025 11:20 AM EST Office Visit [facility] Primary Care Clinic [address] [place] [address] Antione Segura PA-C [address] [place] [address] 07/05/2025 1:00 AM EST Appointment [facility] [address] [place], [place] [phone] Raisa Bautista [address] [place] [address] 07/10/2025 1:00 AM EST Appointment [facility] [address] [place], [place] [phone] Raisa Bautista [address] [place] [address] 07/11/2025 Appointment [facility] [address] [place], [place] [phone] Shakira Hand RN [address] [place] [address] [email or web address] 08/21/2025 10:30 AM EDT Appointment [facility] [address] [place] [address] Antione Segura PA-C [address] [place] [address] [email or web address] documented as of this encounter Visit Diagnoses Not on filedocumented in this encounter Additional Health Concerns Assessment Noted Time PHQ-9 Depression Total Score: 9 05/11/20 6:24 PM EST PHQ-2 Depression Total Score: 2 05/11/20 25 6:24 PM EST documented as of this encounter Home Health Visit - Care Plan Visit Details Visit Type -SN OASIS START O F CARE (SOC) Discipline -Longterm Problems Problem Description Start Date Status Goals Interve ntions HH - Cardiovascular Function - Impaired Disciplines: All Active Home Health Disciplines 05/17/2025 Active 1 goal linked to scheduled/documen subhash intervention 1 goal intervention scheduled/document ed in this visit HH - Medication Management Disciplines: All Active Home Health Disciplines 05/17/2025 Active 1 goal linked to scheduled/documen subhash intervention 2 goal interventions scheduled/document ed in this visit HH - Focus of Care and Teaching Disciplines: All Active Home Health Disciplines w/RD 05/17/2025 Active 1 goal linked to scheduled/documen subhash intervention 1 goal intervention scheduled/document ed in this visit HH - Emergency Planning - Knowledge of Disciplines: All Active Home Health Disciplines 05/17/2025 Active 1 goal linked to scheduled/documen subhash intervention 2 goal interventions scheduled/document ed in this visit HH - Infection - Actual or Risk of Disciplines: All Active Home Health Disciplines 05/17/2025 Active 1 goal linked to scheduled/documen subhash intervention 2 goal interventions scheduled/document ed in this visit HH - Falls - Risk of Disciplines: All Active Home Health Disciplines 05/17/2025 Active 1 goal linked to scheduled/documen subhash intervention 1 goal intervention scheduled/document ed in this visit HH - Standard of Care Disciplines: All Active Home Health Disciplines 05/17/2025 Active 1 goal linked to scheduled/documen subhash intervention 4 goal interventions scheduled/document ed in this visit HH - Pain Disciplines: All Active Home Health Disciplines 05/17/2025 Active 1 goal linked to scheduled/documen subhash intervention 2 goal interventions scheduled/document ed in this visit Goals Goal Associated Problem Outcome Goal Met? Visit Notes HH - Demonstrate/verbalize management of cardiac disease, treatments, and s/s of complications HH - Cardiovascular Function - Impaired No HH - Safe medication [...] care. Patient's acceptable level of pain is 3 - daily, but not constantly. HH - Pain No Interventions Intervention Associated Problem/Goal Status Variance Visit Notes HH - I/E cardiovascular function Description: cardiac disease management, energy conservation and prescribed activity level/restrictions, oxygen therapy, equipment use and safety and s/s of altered tissue perfusion Problem:HH - Cardiovascular Function - Impaired Goal:HH - Demonstrate/verbalize management of cardiac disease, treatments, and s/s of complications Performed HH - I/E medication management: administration, purpose, dosages, preparation, setup, scheduling, side effects, food/drug interactions, and potential complications as indicated Description: Update patient's copy of medication list as needed. Problem:HH - Medication Management Goal:HH - Safe medication management, avoid unnecessary harm related to medication errors and/or interactions Performed HH - Complete medication review every visit and medication reconciliation as indicated. Pharmacy information: Description: [facility] Problem:HH - Medication Management Goal:HH - Safe medication management, avoid unnecessary harm related to medication errors and/or interactions Performed HH - Focus of care, teaching completed and plan for next visit Problem:HH - Focus of Care and Teaching Goal:HH - Communication and collaboration to achieve patient goals Performed Primary Clinical Focus this Visit & Instruction Provided: PT WITH SEVERAL HOSPITALIZATIONS OVER PAST MONTH. ACUTE HYPOXIC RESPIRATORY FAILURE. COPD AND CHF EXACERBATIONS, TRIGEMINAL NUERALGIA. WAS AT [facility] FOR STR. ON 05/13 PT HAVING INCREASE SOB AND LE SWELLING. ON CONTINOUS 1-3L O2 NC. HYPERLIPIDEMIA, CVA, NEPHROLITHIASIS, CHF AORTIC STENOSIS, OBESITY, CHRONIC PAIN, OXYCODONE, HTN. REFERRAL MADE TO PULMONARY AT [facility]. PT SAW HER PCP YESTERDAY. WILL BE STARTING ON LASIX FOR EDEMA/FLUID MANAGE MENT. WAS ADVISED TO MONITOR BP DAILY. PT A/OX3, REPORTS HER MEDICATIONS WERE ORGANIZED IN PILL BOXES AND IS ABLE TO RECALL THE NEW MEDICATIONS ADDED TO REGIMEN. PREDNISONE AND ANTIBIOTIC. SOB WITH EXERTION, IMPAIRED BALANCE, WEAKNESS, DIZZINESS. USES E WALL FOR SUPPORT WHEN AMBULATING. LIVES WITH HER AND HER DOG. WORKS AND IS NOT ALWAYS HOME. CHRONIC PAIN TO LEFT FACE AND BACK. VS WNL, ON O2 LEVEL REMAINING OVER 90%. LS DIM. EDEMA 1+PITTING TO BLE. ELEVATING LEGS. WORE HER CPAP LAS T NIGHT FOR ABOUT 4 HRS. USES NEBULIZER PRN UP TO 4 TIMES A DAY. RESCUE INHALER AND DAILY INHALER IN HOME. CHF MANAGEMENT REVIEWED. WEIGHT TODAY 216. NO GI/ ISSUES, APPETITE FAIR. HAS INTERMITTENT ISSUES WITH SWALLOWING PER BASELINE. CONTINUES TO EXPER IENCE LEFT SIDE MOUTH PAIN D/T DENTAL ISSUES. IS AWAITING TO GET CLEARANCE FOR TOOTH EXTRACTION. REINFORCED ORAL HYGIENE Instruction Provided to: patient Response to Instruction/Teaching: Is partially able to teach back topics as evidenced by needs michael nforcment. Plan for Next Visit Specific Focus & Education Needed: cvp, resp assess, copd, chf management New Orders: Updated Discharge Plan: HH - I/E management of care in an urgent or emergency (ER) situation: When to call your Home Care Team/[facility], ER plans, supplies, evacuation, when to contact local ER officials and how to stay informed Problem:HH - Emergency Planning - Knowledge of Goal:HH - Knowledge of options for managing care in the event of an emergency related situation. Performed HH - Emergency planning assessment: the emergency plan, supplies needed, emergency contact numbers and an evacuation plan were reviewed Description: Patient is/are knowledgeable of emergency plans. Problem:HH - [...] will resolve without complication Performed HH - I/E fall prevention measures Description: diagnosis/age related changes/prior history of falls: symptoms and side effects of illness/injury/histor y of falls placing patient at increased risk for falls. may include management of dizziness/orthostasis , environmental hazards: modification of enviro nment to include clear walkways, secure animals, and move frequently used items within reach, use of equipment, impaired functional mobility: supervision for mobility/activity, appropriate footwear and as indicated safe use of assistive device(s), incont inence: management of incontinence to include safe toileting, need for absorbent garments, address urgency/frequency , pain affecting level of function: impact of pain on an increased risk of falls and poly pharmacy: side effects of medications placing a patient at high risk for a fall Problem: - Falls - Risk of Goal:HH - Knowledge and management of fall prevention measures. Performed HH - Assess vital signs, pulse [...] - I/E safety measures, non-fall related Description: adequate lighting, electrical safety, fire safety, proper storage and disposal of medications, safe ADLs/IADLs and use and maintenance of smoke detectors Problem: - Standard of Care Goal:HH - Achieve care management for a safe to home/community discharge from homecare Performed HH - Diet: Description: low sodium diet and regular diet Problem:HH - Standard of Care Goal:HH - Achieve care management for a safe to home/community discharge from homecare Performed HH - Assess pain Problem:HH - Pain Goal:HH - Frequency of pain interfering with patient's activity or movement will improve with activity or movement by discharge. Performed HH - I/E pain management Problem:HH - Pain Goal:HH - Frequency of pain interfering with patient's activity or movement will improve with activity or movement by discharge. Performed documented in this encounter Care Teams Hasher Operator Relationship Specialty Start Date End Date Antione Segura PA-C [address] [place] [address] [email or web address] PCP - General Physician News Librarian 10/12/24 Jn Cardoza MD [address] [facility], 2nd [place] [address] Neurology 02/03/24 Denys Henriquez MD [address] [place] [address] [place] [address] Pulmonary Disease 02/03/24 Rhett Cortez MD [address] [place] [address] [email or web address] Insurance Assigned Provider 01/20/25 documented as of this encounter Additional Source Comments The information contained in this document represents components of the legal health record. It is not the complete legal health record.[facility]
--- OUTSIDE RECORDS SUMMARY | 2025-05-24 02:30 | XMS_ITS | Encounter Summary ---
Author Organization [facility] Address [address] [place] [phone] Phone Care Team Providers Care Agribusiness Internship Name Role Phone Jn Cardoza MD Unavailable Denys Henriquez MD Unavailable Antione Segura PA-C Primary Care Provider Rhett Cortez MD Unavailable Reason for Visit * Auth/Cert (Routine) Specialty Diagnoses / Procedures Referred By Dary smith Referred To Contact Referral ID Status Reason Start Date Expiration Date Visits Re quested Visits Authorized [id number] 1 1 Encounter Details Date Type Department Care Team (Late st Contact Info) Description 05/24/2025 2:30 AM EST Home Care Visit [facility] [address] [place] [phone] Lily Raisa M [address], [place] [phone] [email or web address] RN OPERATING ROOM HOME VISIT Social History Tobacco Use Types [...] high school, GED, job training, learning the [place] language, technical skills, or developing parenting skills)? [...] Description 05/31/2025 2:00 AM EST Appointment [facility] [address] [place] [phone] Shakira Hand RN [address] [place] [address] 05/31/2025 11:30 AM EST Appointment [facility] [address] [place] [phone] Raisa Bautista [address] [place] [phone] 06/04/2025 12:30 AM EST Appointment [facility] [address] [place] [phone] Shakira Hand RN [address] [place] [address] 06/05/2025 1:00 AM EST Appointment [facility] [address] [place] [phone] Raisa Bautista [address] [place] [address] 06/06/2025 12:30 AM EST Appointment [facility] [address] [place] [phone] Raisa Bautista [address] [place] [phone] 06/12/2025 1:30 AM EST Appointment [facility] [address] [place] [phone] Shakira Hand, RN [address] [place] [address] 06/12/2025 2:00 AM EST Appointment [facility] [address] [place] [address] Raisa Bautista [address] [place] [phone] 06/13/2025 2:00 PM EST Appointment [facility] [address] [place] [phone] Antione Segura PA-C [address] [place] [phone] 06/14/2025 1:00 AM EST Appointment [facility] [address] [place] [address] Raisa Bautista [address] [place] [phone] 06/19/2025 1:00 AM EST Appointment [facility] [address] [place] [address] Raisa Bautista [address] [place] [phone] 06/19/2025 2:00 AM EST Appointment [facility] [address] [place] [phone] Shakira Hand, HUA [address] [place] [address] 06/21/2025 1:00 AM EST Appointment [facility] [address] [place] [phone] Lily Raisa M [address] [place] [address] 06/25/2025 9:30 AM EST Telemedicine [facility] [address] [place] [phone] Jn Cardoza MD [address] [place] [address], [address] [place] [address] 06/26/2025 1:00 AM EST Appointment [facility] [address] [place] [phone] Lily Raisa M [address] [place] [address] 06/27/2025 Appointment [facility] [address] [place] [phone] Shakira Hand RN [address] [place] [address] 06/28/2025 1:00 AM EST Appointment [facility] [address] [place] [phone] Raisa Bautista [address] [place] [address] 07/03/2025 1:00 AM EST Appointment [facility] [address] [place] [phone] Raisa Bautista [address] [place] [address] 07/03/2025 1:00 PM EST Office Visit [facility] Pul[facility]ology[facility] [address] [place] [phone] Celso Akins MD [address] [place] [phone] 07/04/2025 Appointment [facility] [address], [place] [phone] Shakira Hand RN [address] [place] [address] 07/04/2025 11:20 AM EST Office Visit [facility] [address] [place] [address] Antione Segura PA-C [address] [place] [address] [email or web address] 07/05/2025 1:00 AM EST Appointment [facility] [address], [place] [phone] Raisa Bautista [address] [place] [address] 07/10/2025 1:00 AM EST Appointment [facility] [address] [place] [address] Raisa Bautista [address] [place] [phone] 07/11/2025 Appointment [facility] [address] [place] [phone] Shakira Hand RN [address] [place] [address] 08/21/2025 10:30 AM EDT Appointment [facility] [address] [place] [phone] Antione Segura PA-C [address] [place] [address] [email or web address] documented as of this encounter Visit Diagnoses Not on filedocumented in this encounter Additional Health Concerns Assessment Noted Time PHQ-9 Depression Total Score: 9 05/11/20 25 6:24 PM EST PHQ-2 Depression Total Score: 2 05/11/20 25 6:24 PM EST documented as of this encounter Home Health Visit - Care Plan Visit Details Visit Type -RN OPERATING ROOM HOME VISIT Discipline -Home Health Aide Problems Problem Description Start Date Status Goals Interve ntions HH - Home Health Aide Care Plan Disciplines: Home Health Aide 05/21/2025 Active 1 goal linked to scheduled/documente d intervention 8 goal interventions scheduled/documente d in this visit Goals Goal Associated Problem Outcome Goal Met? Visit Notes HH - Personal care needs will be met. HH - Home Health Aide Care Plan No Interventions Intervention Associated Problem/Goal Status Variance Visit Notes HH - Report changes in condition for example bowel/bladder, skin, ambulation, home safety, confusion/mental status Problem: - Home Health Aide Care Plan Goal:HH - Personal care needs will be met. Performed HH - Medication reminders Problem: - Home Health Aide Care Plan Goal:HH - Personal care needs will be met. Performed HH - Meal prep Problem: - Home Health Aide Care Plan Goal:HH - Personal care needs will be met. Performed HH - Infection Control: precautions (specify) Description: Standard Precautions, please wear mask during visits Problem: - Home Health Aide Care Plan Goal:HH - Personal care needs will be met. Performed HH - Care of the environment Description: Change/Make bed and Laundry essential to patient Problem: - Home Health Aide Care Plan Goal:HH - Personal care needs will be met. Performed HH - Assist with/complete safe bathing Description: Shower with chair or bench Problem: - Home Health Aide Care Plan Goal:HH - Personal care needs will be met. Performed HH - Assist with personal care Description: Weight, Dressing, Skin Care , Hair Care: Shampoo as needed, Shaving and Nail Care (no cutting file only) Problem: - Home Health Aide Care Plan Goal:HH - Personal care needs will be met. Performed HH - Assist with activity/ambulation Description: Ambulation with standby Problem: - Home Health Aide Care Plan Goal:HH - Personal care needs will be met. Performed documented in this encounter Care Teams [employer]ribusiness Internship Relationship Specialty Start Date End Date Antione Segura PA-C [address] [place] [address] [email or web address] PCP - General Physician Lacrosse Coach 10/12/24 Jn Cardoza MD [address] [place] [address], [address] [place] [address] Neurology 02/03/24 Denys Henriquez MD [address] [place] [address] [place] [address] Pulmonary Disease 02/03/24 Rhett Cortez MD [address] [place] [address] [email or web address] Insurance Assigned Provider 01/20/25 documented as of this encounter Additional Source Comments The information contained in this document represents components of the legal health record. It is not the complete legal health record.[facility]
--- OUTSIDE RECORDS SUMMARY | 2025-05-24 02:30 | XMS_ITS | Encounter Summary ---
Author Organization [facility] Address [address] [place] [address] Phone Care Team Providers Care Knife Changer Name Role Phone Jn Cardoza MD Unavailable Denys Henriquez MD Unavailable Antione Segura PA-C Primary Care Provider Rhett Cortez MD Unavailable Reason for Visit * Auth/Cert (Routine) Specialty Diagnoses / Procedures Referred By Dary smith Referred To Contact Referral ID Status Reason Start Date Expiration Date Visits Re quested Visits Authorized [id number] 1 1 Encounter Details Date Type Department Care Team (Late st Contact Info) Description 05/24/2025 2:30 AM EST Home Care Visit [facility] [address] [place] [address] Rich Mariscal LPN [address] [place] [address] SEO ANALYST HOME VISIT Social History Tobacco Use Types [...] Sign Reading Time Taken Comments Blood Pressure 145/81 05/24/2025 11:50 AM EST Pulse 74 05/24/2025 11:50 AM EST Temperature 36.3 C (97.4 F) 05/24/2025 11:50 AM EST Respiratory Rate 20 05/24/2025 11:50 AM EST Oxygen Saturation 97% 05/24/2025 11:50 AM EST Inhaled Oxygen Concentration - - Weight - - Height - - Body Mass Index - - documented in this encounter Plan of Treatment Upcoming Encounters Date Type Department Care Team (Late st Contact Info) Description 05/31/2025 2:00 AM EST Appointment [facility] [address] [place] [address] Shakira Hand RN [address] [place] [address] [email or web address] 05/31/2025 11:30 AM EST Appointment [facility] [address] [place] [address] Raisa Bautista [address] [place] [address] [email or web address] 06/04/2025 12:30 AM EST Appointment [facility] [address] [place] [address] Shakira Hand RN [address] [place] [address] [email or web address] 06/05/2025 1:00 AM EST Appointment [facility] [address] [place] [address] Lily Raisa M [address] [place] [address] [email or web address] 06/06/2025 12:30 AM EST Appointment [facility] [address] [place] [phone] Lily Raisa M [address] [place] [address] [email or web address] 06/12/2025 1:30 AM EST Appointment [facility] [address] [place] [phone] Shakira Hand, HUA [address] [place] [address] [email or web address] 06/12/2025 2:00 AM EST Appointment [facility] [address] [place] [phone] Lily Raisa M [address] [place] [address] [email or web address] 06/13/2025 2:00 PM EST Appointment [facility] [address] [place] [address] Antione Segura PA-C [address] [place] [email or web address] 06/14/2025 1:00 AM EST Appointment [facility] [address] [place] [phone] Lily Raisa M [address] [place] [address] [email or web address] 06/19/2025 1:00 AM EST Appointment [facility] [address] [place] [phone] Raisa Bautista M [address] [place] [address] 06/19/2025 2:00 AM EST Appointment [facility] [address] [place] [phone] Shakira Hand RN [address] [place] [address] 06/21/2025 1:00 AM EST Appointment [facility] [address] [place] [address] Raisa Bautista [address] [place] [address] 06/25/2025 9:30 AM EST Telemedicine [facility] [address] [place] [address] Jn Cardoza MD [address] [place] [address], 2[address] [place] [address] 06/26/2025 1:00 AM EST Appointment [facility] [address] [place] [phone] Raisa Bautista [address] [place] [address] 06/27/2025 Appointment [facility] [address] [place] [address] Shakira Hand RN [address] [place] [address] 06/28/2025 1:00 AM EST Appointment [facility] [address] [place] [phone] Raisa Bautista [address] [place] [address] 07/03/2025 1:00 AM EST Appointment [facility] [address] [place], [place] [phone] Raisa Bautista [address] [place] [address] 07/03/2025 1:00 PM EST Office Visit [facility] [address] [place] [address] [place] [address] Celso Akins MD [address] [place] [address] 07/04/2025 Appointment [facility] [address] [place] [phone] Shakira Hadn RN [address] [place] [address] 07/04/2025 11:20 AM EST Office Visit [facility] 40 [place] [address] Antione Segura PA-C [address] [place] [address] 07/05/2025 1:00 AM EST Appointment [facility] [address] [place] [phone] Raisa Bautista [address] [place] [address] 07/10/2025 1:00 AM EST Appointment [facility] [address] [place] [phone] Raisa Bautista [address] [place] [address] 07/11/2025 Appointment [facility] [address] [place] [phone] Shakira Hand, HUA [address] [place] [address] [email or web address] 08/21/2025 10:30 AM EDT Appointment [facility] [address] [place] [address] Antione Segura PA-C [address] [place] [address] [email or web address] documented as of this encounter Visit Diagnoses Not on filedocumented in this encounter Additional Health Concerns Assessment Noted Time PHQ-9 Depression Total Score: 9 05/11/20 6:24 PM EST PHQ-2 Depression Total Score: 2 05/11/20 6:24 PM EST documented as of this encounter Home Health Visit - Care Plan Visit Details Visit Type -SEO ANALYST HOME VISIT Discipline -Fpc Problems Problem Description Start Date Status Goals Interve ntions HH - Medication Management Disciplines: All Active Home Health Disciplines 05/17/2025 Active 1 goal linked to scheduled/document ed intervention 2 goal interventions scheduled/document ed in this visit HH - Focus of Care and Teaching Disciplines: All Active Home Health Disciplines w/RD 05/17/2025 Active 1 goal linked to scheduled/document ed intervention 1 goal intervention scheduled/document ed in this visit HH - Emergency Planning - Knowledge of Disciplines: All Active Home Health Disciplines 05/17/2025 Active 1 goal linked to scheduled/document ed intervention 2 goal interventions scheduled/document ed in this visit HH - Standard of Care Disciplines: All Active Home Health Disciplines 05/17/2025 Active 1 goal linked to scheduled/document ed [...] Visit & Instruction Provided: Patient alert and pleasant, c/o generalized pain. Lung diminished at bases, SOB while at rest and ambulating Continues with nebs tx 4x/day and rescue inhalers daily continuous 1L-3L of O2. Patient changing Pulmonology doctor in June. Pulmonology appt Wednesday for clearance to make appt with dentist for Tooth extraction. Appetite fair due to tooth pain, drinking protein shakes. No c/o dizziness or recent falls noted. Will continue to monitor and maintain safety. Instruction Provided to: patient Response to Instruction/Teachin g: Is partially able to teach back topics as evidenced by verbal recall. Plan for Next Visit Specific Focus & Education Needed: CVP assessment, Resp assessment, New Or ders: none Updated Discharge Plan: When goals are met HH - I/E management of care in an urgent or emergency (ER) situation: When to call your Home Care Team/91, ER plans, supplies, evacuation, when to contact [...] Performed documented in this encounter Care Teams Knife Changer Relationship Specialty Start Date End Date Antione Segura PA-C [address] [place] [address] [email or web address] PCP - General Physician Evaluator Transfer Students 10/12/24 Jn Cardoza MD 22 [facility], 2nd [place] [address] Neurology 02/03/24 Denys Henriquez MD [address] [place] [address] [place] [address] Pulmonary Disease 02/03/24 Rhett Cortez MD [address] [place] [address] [email or web address] Insurance Assigned Provider 01/20/25 documented as of this encounter Additional Source Comments The information contained in this document represents components of the legal health record. It is not the complete legal health record.[facility]
--- OUTSIDE RECORDS SUMMARY | 2025-05-28 01:30 | XMS_ITS | Encounter Summary ---
Author Organization [facility] Address [address] [place] [address] Phone Care Team Providers Care Jammer Operator Name Role Phone Jn Cardoza MD Unavailable Denys Henriquez MD Unavailable Antione Segura PA-C Primary Care Provider [phone] Rhett Cortez MD Unavailable Reason for Visit * Auth/Cert (Routine) Specialty Diagnoses / Procedures Referred By Dary smith Referred To Contact Referral ID Status Reason Start Date Expiration Date Visits Re quested Visits Authorized [id number] 1 1 Encounter Details Date Type Department Care Team (Late st Contact Info) Description 05/28/2025 1:30 AM EST Home Care Visit [facility] [address] [place] [address] Rich Mariscal LPN [address] [place] [address] SECURITY SCREENER HOME VISIT Social History Tobacco Use Types [...] Description 05/31/2025 2:00 AM EST Appointment [facility] [address] [place] [address] Shakira Hand, HUA [address] [place] [address] [email or web address] 05/31/2025 11:30 AM EST Appointment [facility] [address] [place] [address] Raisa Bautista [address] [place] [address] [email or web address] 06/04/2025 12:30 AM EST Appointment [facility] [address] [place] [address] Shakira Hand RN [address] [place] [address] [email or web address] 06/05/2025 1:00 AM EST Appointment [facility] [address] [place] [address] Lily Raisa M [address] [place] [address] [email or web address] 06/06/2025 12:30 AM EST Appointment [facility] [address] [place] [phone] Lily Raisa M [address] [place] [address] [email or web address] 06/12/2025 1:30 AM EST Appointment [facility] [address] [place] [phone] Shakira Hand, HUA [address] [place] [address] [email or web address] 06/12/2025 2:00 AM EST Appointment [facility] [address] [place] [phone] Lily Raisa M [address] [place] [address] [email or web address] 06/13/2025 2:00 PM EST Appointment [facility] [address] [place] [address] Antione Segura PA-C [address] [place] [address] [email or web address] 06/14/2025 1:00 AM EST Appointment [facility] [address] [place] [phone] Lily Raisa M [address] [place] [address] [email or web address] 06/19/2025 1:00 AM EST Appointment [facility] [address] [place] [phone] Raisa Bautista M [address] [place] [address] 06/19/2025 2:00 AM EST Appointment [facility] [address] [place] [address] Shakira Hand RN [address] [place] [address] 06/21/2025 1:00 AM EST Appointment [facility] [address] [place] [address] Raisa Bautista [address] [place] [address] 06/25/2025 9:30 AM EST Telemedicine [facility] [address] [place] [address] Jn Cardoza MD [address] [place] [address], 2nd [place] [address] 06/26/2025 1:00 AM EST Appointment [facility] [address] [place] [phone] Raisa Bautista [address] [place] [address] 06/27/2025 Appointment [facility] [address] [place] [address] Shakira Hand RN [address] [place] [address] 06/28/2025 1:00 AM EST Appointment [facility] [address] [place] [phone] Raisa Bautista [address] [place] [address] 07/03/2025 1:00 AM EST Appointment [facility] [address] [place] [phone] Raisa Bautista [address] [place] [address] 07/03/2025 1:00 PM EST Office Visit [facility] [address] [place] [address] [place] [address] Celso Akins MD [address] [place] [address] 07/04/2025 Appointment [facility] [address] [place] [phone] Shakira Hand RN [address] [place] [address] 07/04/2025 11:20 AM EST Office Visit [facility] [address] [place] [address] Antione Segura PA-C [address] [place] [address] 07/05/2025 1:00 AM EST Appointment [facility] [address] [place] [phone] Raisa Bautista [address] [place] [address] 07/10/2025 1:00 AM EST Appointment [facility] [address] [place] [phone] Raisa Bautista [address] [place] [address] 07/11/2025 Appointment [facility] [address] [place] [phone] Shakira Hand, HUA [address] [place] [address] [email or web address] 08/21/2025 10:30 AM EDT Appointment [facility] [address] [place] [address] Antione Segura PA-C [address] [place] [address] [email or web address] documented as of this encounter Visit Diagnoses Not on filedocumented in this encounter Additional Health Concerns Assessment Noted Time PHQ-9 Depression Total Score: 9 05/11/20 6:24 PM EST PHQ-2 Depression Total Score: 2 05/11/20 6:24 PM EST documented as of this encounter Home Health Visit - Care Plan Visit Details Visit Type -SECURITY SCREENER HOME VISIT Discipline -Shelter Problems Problem Description Start Date [...] PCP f/u ap pt tomorrow 8am. New furniture removalist's assistant appt 07/[address] Akins Will continue [...] event of an emergency related situation. Performed - Emergency planning assessment: the emergency plan, supplies needed, emergency contact numbers and an evacuation plan were reviewed Description: Patient is/are knowledgeable of emergency plans. Problem: - [...] Performed documented in this encounter Care Teams Jammer Operator Relationship Specialty Start Date End Date Antione Segura PA-C [address] [place] [address] [email or web address] PCP - General Physician Commercial Underwriter 10/12/24 Jn Cardoza MD 22 [facility], 2nd [place] [address] Neurology 02/03/24 Denys Henriquez MD [address] [place] [address] [place] [address] Pulmonary Disease 02/03/24 Rhett Cortez MD [address] [place] [address] [email or web address] Insurance Assigned Provider 01/20/25 documented as of this encounter Additional Source Comments The information contained in this document represents components of the legal health record. It is not the complete legal health record.[facility]
--- OUTSIDE RECORDS SUMMARY | 2025-05-28 13:30 | XMS_ITS | Encounter Summary ---
Author Organization [facility] Address [address] [place] [phone] Phone Care Team Providers Care Instructor [employer] Name Role Phone Jn Cardoza MD Unavailable Denys Henriquez MD Unavailable Antione Segura PA-C Primary Care Provider Rhett Cortez MD Unavailable Reason for Visit * Auth/Cert (Routine) Specialty Diagnoses / Procedures Referred By Dary smith Referred To Contact Referral ID Status Reason Start Date Expiration Date Visits Re quested Visits Authorized [id number] 1 1 Encounter Details Date Type Department Care Team (Late st Contact Info) Description 05/28/2025 1:30 PM EST Home Care Visit [facility] [address] [place] [phone] Raisa Bautista [address], [place] [phone] [email or web address] SUBGRADE ROLLER OPERATOR HOME VISIT Social History Tobacco Use [...] Description 05/31/2025 2:00 AM EST Appointment [facility] [address] [place] [phone] Shakira Hand RN [address] [place] [address] 05/31/2025 11:30 AM EST Appointment [facility] [address] [place] [phone] Raisa Bautista [address] [place] [address] 06/04/2025 12:30 AM EST Appointment [facility] [address] [place] [phone] Shakira Hand RN [address] [place] [address] 06/05/2025 1:00 AM EST Appointment [facility] [address] [place] [phone] Raisa Bautista [address] [place] [address] 06/06/2025 12:30 AM EST Appointment [facility] [address] [place] [phone] Raisa Bautista [address] [place] [address] 06/12/2025 1:30 AM EST Appointment [facility] [address] [place] [phone] Shakira Hand, RN [address] [place] [address] 06/12/2025 2:00 AM EST Appointment [facility] [address] [place] [address] Raisa Bautista [address] [place] [address] 06/13/2025 2:00 PM EST Appointment [facility] [address] [place] [address] Antione Segura PA-C [address] [place] [email or web address] 06/14/2025 1:00 AM EST Appointment [facility] [address] [place] [address] Raisa Bautista [address] [place] [address] 06/19/2025 1:00 AM EST Appointment [facility] [address] [place] [address] Raisa Bautista [address] [place] [address] 06/19/2025 2:00 AM EST Appointment [facility] [address] [place] [phone] Shakira Hand, HUA [address] [place] [address] 06/21/2025 1:00 AM EST Appointment [facility] [address] [place] [phone] Lily Raisa M [address] [place] [address] 06/25/2025 9:30 AM EST Telemedicine [facility] [address] [place] [address] Jn Cardoza MD [address] [place] [address], 2nd [place] [address] 06/26/2025 1:00 AM EST Appointment [facility] [address] [place] [phone] Lily Raisa M [address] [place] [address] 06/27/2025 Appointment [facility] [address] [place] [phone] Shakira Hand RN [address] [place] [address] 06/28/2025 1:00 AM EST Appointment [facility] [address] [place] [phone] Raisa Bautista [address] [place] [address] 07/03/2025 1:00 AM EST Appointment [facility] [address] [place] [phone] Raisa Bautista [address] [place] [address] 07/03/2025 1:00 PM EST Office Visit [facility] Pulmonology, Allergy and Critical Care Medicine [facility] [address] [place] [address] Celso Akins MD [address] [place] [address] 07/04/2025 Appointment [facility] [address] [place], [place] [phone] Shakira Hand RN [address] [place] [address] 07/04/2025 11:20 AM EST Office Visit [facility] Primary Care Clinic [address] [place] [address] Antione Segura PA-C [address] [place] [address] 07/05/2025 1:00 AM EST Appointment [facility] [address] [place], [place] [phone] Raisa Bautista [address] [place] [address] 07/10/2025 1:00 AM EST Appointment [facility] [address] [place] [address] Raisa Bautista [address] [place] [address] 07/11/2025 Appointment [facility] [address] [place] [phone] Shakira Hand RN [address] [place] [address] 08/21/2025 10:30 AM EDT Appointment [facility] [address] [place] [address] Antione Segura PA-C [address] [place] [address] [email or web address] documented as of this encounter Visit Diagnoses Not on filedocumented in this encounter Additional Health Concerns Assessment Noted Time PHQ-9 Depression Total Score: 9 05/11/20 25 6:24 PM EST PHQ-2 Depression Total Score: 2 05/11/20 25 6:24 PM EST documented as of this encounter Home Health Visit - Care Plan Visit Details Visit Type -SUBGRADE ROLLER OPERATOR HOME VISIT Discipline -Home Health Aide Problems [...] Personal care needs will be met. Performed No new changes to note HH - Medication reminders Problem:HH - Home Health Aide Care Plan Goal:HH - Personal care needs will be met. Performed HH - Meal prep Problem: - Home Health Aide Care Plan Goal:HH - Personal care needs will be met. Performed HH - Infection Control: precautions (specify) Description: Standard Precautions, please wear mask during visits Problem:HH - Home Health Aide Care Plan [...] Performed documented in this encounter Care Teams Instructor [employer] Relationship Specialty Start Date End Date Antione Segura PA-C [address] [place] [address] PCP - General Physician Box Covering Machine Operator 10/12/24 Jn Cardoza MD [address] [place] [address], 2[address] [place] [address] Neurology 02/03/24 Denys Henriquez MD [address] [place] [address] [place] [address] Pulmonary Disease 02/03/24 Rhett Cortez MD [address] [place] [address] [email or web address] Insurance Assigned Provider 01/20/25 documented as of this encounter Additional Source Comments The information contained in this document represents components of the legal health record. It is not the complete legal health record.[facility]
--- NOTE | ~2025-05-29 | XR_ITS ---
CLINICAL HISTORY: SOB Radiograph of the chest one view Comparison: CR - XR CHEST 1V - 05/13/25 06:06 EST Findings: There is abimbola-interstitial soft tissue prominence. No consolidation. No pleural effusion or pneumothorax. Normal heart size. No acute osseous abnormality. Impression: 1. Abimbola-interstitial soft tissue prominence which can be seen with asthma, reactive airways process or viral illness. 2. No superimposed segmental or lobar pneumonia. This document has been electronically signed by: Bobbi Villalobos DO on 05/29/2025 18:30:52
--- OUTSIDE RECORDS SUMMARY | 2025-05-29 08:20 | XMS_ITS | Encounter Summary ---
Author Organization [facility] Address [facility] [employer] [address] [place] [phone] Phone Care Team Providers Care Monotype Mechanic Name Role Phone Jn Cardoza MD Unavailable Denys Henriquez MD Unavailable Antione Segura PA-C Primary Care Provider Rhett Cortez MD Unavailable Reason for Visit * Reason Comments Follow Up Visit 2 weeks (around 05/14) for Recheck Encounter Details Date Type Department Care Team (Late st Contact Info) Description 05/29/2025 8:20 AM EST Office Visit [facility] [address], [place] [phone] Antione Segura PA-C [address] [place] [address] Acute on chronic hypoxic respiratory failure (Primary [...] to short-term rehab and therefore went to [facility]. She remained at [facility] until the Wednesday before when she was discharged home. Upon returning home patient mentions that she had been doing relatively well until 05/13 where she started having increased shortness of breath and lower extremity swelling. At that time she ended up getting transported back to [facility] where she was found to have heart [...] but the last time she saw her missile tracking technician it was back over the summer. Patient [...] Dr. Simmons scheduled for 07/03/2025, and her missile tracking technician has deferred any clearance until after this [...] She has been advised to contact her industrial sales representative regarding this matter. Primarily, she has been either hospitalized or at home, with the exception of a few days. Concerns are expressed about the financial burden of medical expenses, including co-pays and deductibles, and the potential impact on her 's decision to retire.Currently, she is covered under her 's insurance policy. Information has been provided that she may qualify for [employer] due to her disability, which would provide coverage for medical expenses. Additionally, she may be eligible for fuel and electrical assistance due to her oxygen dependency, and has been advised to contact [employer] for further information regarding these resources. Review of Systems Respiratory: Positive for shortness of breath. Past Medical History: Diagnosis Date Anxiety 05/04/2017 Aortic stenosis 12/2024 [facility] admission confirmed by ultrasound Cerebral aneurysm without rupture 05/04/2017 CHF (congestive heart failure) Chronic back pain Chronic obstructive pulmonary disease on supplement O2 1L with sleep, 2L at rest, 3L exertion - home ventilator Chronic tension headaches 05/04/2017 Depressive disorder Essential hypertension 05/04/2017 Hypogammaglobulinemia IVIG-infusions monthly Hypotension 12/2024 [facility] admission Irritable bowel syndrome 05/04/2017 Migraines Mixed hyperlipidemia 05/04/2017 Multiple lacunar infarcts Night terrors Non-rheumatic mitral regurgitation 11/03/2017 Non-rheumatic tricuspid valve insufficiency 11/03/2017 NSTEMI (non-ST elevated myocardial infarction) x2 Parotid mass 05/04/2017 PTSD (post-traumatic stress disorder) Pulmonary nodules Sacroiliitis, not elsewhere classified 05/04/2017 Small bowel obstruction 12/2024 [facility] admission confirmed by CT w/ contrast Temporomandibular joint disorder 05/04/2017 medications Medication Sig Start Date End Date Taking? Authorizing Provider albuterol 90 mcg/actuation inhaler INHALE TWO PUFFS BY MOUTH EVERY 4 HOURS NEEDED FOR WHEEZING 05/07/25 Yes Madhuri Farrar, DNP, [employer] ARIPiprazole (ABILIFY) 5 MG tablet Take 5 [...] needed for cough. 12/28/24 Yes Eliana Prabhakar, [employer] REPORTER budesonide (PULMICORT) 0.5 mg/2 mL nebulizer solution Take 0.5 mg by nebulization daily. States does not have, per Dr. Henriquez/pulmonology not on her medlist 12/27/24 Yes Omar Coloey MD qiwjinvlvh-oocostbe-lkewtpvbqh (BREZTRI AEROSPHERE) 160-9-4.8 mcg/actuation inhaler Inhale 2 puffs into the lungs 2 (two) times a day. 01/26/25 Yes Omar Cooley MD xpmbktsypo-iebxkzyxuaxth-wihccikw (FIORICET, ESGIC) 50-325-40 mg per tablet TAKE ONE TABLET BY MOUTH EVERY DAY NEEDED FOR PAIN 03/09/25 Yes Antione Segura PA-C calcium carbonate-vitamin D3 1,500 mg [...] with a history of several admissions to [facility] within the last 3 months secondary to [...] respiratory therefore I did reach out to [facility] pulmonary and patient does have an appointment on 07/03/[address] Akins. She was also advised to undergo pulmonary function tests which have been ordered. -Patient will continue Lasix 20 mg daily. -She will continue to monitor her blood pressures closely at home she will hold her Lasix if her systolic blood pressure is less than 110 -She will follow-up with [facility] pulmonary for second opinion on 07/03 -She [...] the date of the encounter. This includes qbmt-[id number] time during the visit as well as non baem-yw-adks time spent on chart review, documentation, and [...] with a history of several admissions to [facility] within the last 3 months secondary to [...] respiratory therefore I did reach out to [facility] pulmonary and patient does have an appointment on 07/03/[address] Akins. She was also advised to undergo pulmonary function tests which have been ordered. -Patient will continue Lasix 20 mg daily. -She will continue to monitor her blood pressures closely at home she will hold her Lasix if her systolic blood pressure is less than 110 -She will follow-up with [facility] pulmonary for second opinion on 07/03 -She will continue her supplemental oxygen -Patient was advised that if her shortness of breath increased she will need to call 911 and be transferred to the hospital. documented in this encounter Plan of Treatment Upcoming Encounters Date Type Department Care Team (Late st Contact Info) Description 05/31/2025 2:00 AM EST Appointment [facility] [address] [place] [address] Shakira Hand RN [address] [place] [address] [email or web address] 05/31/2025 11:30 AM EST Appointment [facility] [address] [place] [address] Raisa Bautista [address] [place] [address] [email or web address] 06/04/2025 12:30 AM EST Appointment [facility] [address] [place] [address] Shakira Hand RN [address] [place] [address] [email or web address] 06/05/2025 1:00 AM EST Appointment [facility] [address] [place] [phone] LilyRaisa M [address] [place] [address] [email or web address] 06/06/2025 12:30 AM EST Appointment [facility] [address] [place] [phone] LilyRaisa M [address] [place] [address] [email or web address] 06/12/2025 1:30 AM EST Appointment [facility] [address] [place] [phone] Shakira Hand, HUA [address] [place] [address] [email or web address] 06/12/2025 2:00 AM EST Appointment [facility] [address] [place] [phone] LilyRaisa M [address] [place] [address] [email or web address] 06/13/2025 2:00 PM EST Appointment [facility] [address] [place] [phone] Antione Segura PA-C [address] [place] [address] [email or web address] 06/14/2025 1:00 AM EST Appointment [facility] [address] [place] [phone] LilyRaisa M [address] [place] [address] [email or web address] 06/19/2025 1:00 AM EST Appointment [facility] [address] [place] [phone] Raisa Bautista [address] [place] [address] 06/19/2025 2:00 AM EST Appointment [facility] [address] [place] [phone] Shakira Hand RN [address] [place] [address] 06/21/2025 1:00 AM EST Appointment [facility] [address] [place] [address] Raisa Bautista [address] [place] [address] 06/25/2025 9:30 AM EST Telemedicine [facility] [address] [place] [address] Jn Cardoza MD [address] [facility] [place] [address] 06/26/2025 1:00 AM EST Appointment [facility] [address] [place] [phone] Raisa Bautista [address] [place] [address] 06/27/2025 Appointment [facility] [address] [place] [phone] Shakiar Hand RN [address] [place] [address] 06/28/2025 1:00 AM EST Appointment [facility] [address] [place] [phone] Raisa Bautista [address] [place] [address] 07/03/2025 1:00 AM EST Appointment [facility] [address] [place], [place] [phone] Lily Raisa Lawler [address] [place] [address] 07/03/2025 1:00 PM EST Office Visit [facility] Pulmonology, Allergy [facility] Critical [facility] Medicine [facility] [address] [place] [phone] Celso Akins MD [address] [place] [address] 07/04/2025 Appointment [facility] [address] [place], [place] [phone] Shakira Hand RN [address] [place] [address] 07/04/2025 11:20 AM EST Office Visit [facility] [address] [place] [address] Antione Segura PA-C [address] [place] [address] 07/05/2025 1:00 AM EST Appointment [facility] [address] [place], [place] [phone] Lily Raisa Lawler [address] [place] [address] 07/10/2025 1:00 AM EST Appointment [facility] [address] [place], [place] [phone] Lily Raisa Lawler [address] [place] [address] 07/11/2025 Appointment [facility] [address] [place] [phone] Shakira Hand, HUA [address] [place] [address] 08/21/2025 10:30 AM EDT Appointment [facility] [address] [place] [address] Antione Segura PA-C [address] [place] [address] documented as of this encounter Visit Diagnoses Diagnosis Acute on chronic hypoxic respiratory failure- Primary documented in this encounter Additional Health Concerns Assessment Noted Time PHQ-9 Depression Total Score: 9 05/11/20 6:24 PM EST PHQ-2 Depression Total Score: 2 05/11/20 6:24 PM EST documented as of this encounter Care Teams Monotype Mechanic Relationship Specialty Start Date End Date Antione Segura PA-C [address] [place] [address] PCP - General Physician Retirement Plan Counselor 10/12/24 Jn Cardoza MD [address] [facility] [place] [address] Neurology 02/03/24 Denys Henriquez MD [address] [place] [address] [place] [address] Pulmonary Disease 02/03/24 Rhett Cortez MD [address] [place] [phone] Insurance Assigned Provider 01/20/25 documented as of this encounter Additional Source Comments The information contained in this document represents components of the legal health record. It is not the complete legal health record.[facility]
[2025-05-29 15:52] VITALS: BP 145/69; BP 187/90; PULSE 80; PULSE 86; RESP 20; TEMP 36.3; O2SAT 99; BMI 44.2
--- NOTE | 2025-05-29 16:54 | ECG_ITS ---
Test Reason : SOB Blood Pressure : */* mmHG Vent. Rate : 75 BPM Atrial Rate : 75 BPM P-R Int : 138 ms QRS Dur : 90 ms QT Int : 384 ms P-R-T Axes : 42 50 36 degrees QTcB Int : 428 ms Poor data quality, interpretation may be adversely affected Normal sinus rhythm Normal ECG When compared with ECG of 13-May-2025 05:36, No significant change was found Referred By: Romi Long Electronically Signed By: Eladio Nelson
--- NOTE | 2025-05-29 16:55 | ED_ITS ---
HPI - SOB/Dyspnea General Chief Complaint: Dyspnea Stated Complaint: SOB hx COPD 96%RA now 100% on duo neb Time Seen by Provider: 05/29/25 16:53 History of Present Illness ED Provider: Romi Long NP HPI Narrative: 60-year-old female medical history that is significant for COPD on home oxygen 1-3 L nasal cannula, frequent hospitalizations for such with most recent 04/20--04/25, heart failure with preserved EF, JUANITO with CPAP at night presents to the ED via EMS with a chief complaint of shortness of breath. Patient reportedly felt more short of breath than usual an aspirate EMS. She was given 2 DuoNebs by EMS and reports feeling better. She was never noted to be hypoxic, and is not requiring any increase of oxygen in comparison to her baseline 1-3 L. She denies any chest pain or pressure. No palpitations. No abdominal pain, nausea or vomiting, urinary complaints. No fever, chills, recent illnesses. Does report that she recently saw her PCP, who was going to prescribe/refill her diuretic. Does not report being without her diuretic for several days. She does report that her legs are more swollen in comparison to usual. Related Data Home Medications ?Medication ?Instructions ?Recorded ?Confirmed atorvastatin 80 mg tablet 80 mg PO DAILY@199903/04/23 05/22/25 unbjkltdag-dqinicoorzbvk-dcuywneg 1 tab PO DAILY MRX1 PRN Migraine 03/04/23 05/22/25 50 mg-325 mg-40 mg tablet Headache duloxetine 60 mg capsule,delayed 60 mg PO BID@0600,200 0 03/04/23 05/22/25 release gabapentin 300 mg capsule 1,200 mg PO TID@0600,1200,20 00 03/04/23 05/22/25 hyoscyamine sulfate 0.125 mg tablet 0.25 mg PO Q6H PRN Abdominal 03/04/23 05/22/25 Discomfort Oxygen Home Use 04/16/23 05/22/25 prazosin 2 mg capsule 2 mg PO DAILY@199904/16/23 05/22/25 albuterol sulfate 90 mcg/actuation 2 puff inhalation Q 4H PRN 01/31/24 05/22/25 aerosol inhaler Shortness Of Breath Or Wheez ing aspirin 81 mg tablet,delayed 81 mg PO DAILY@05/2205/22/25 release calcium 600 mg (as 1 tab PO DAILY@199906/20/24 05/22/25 carbonate)-vitamin D3 5 mcg (200 unit) tablet baclofen 20 mg tablet 20 mg PO TID@0600,1199,199910/29/24 05/22/25 aripiprazole 5 mg tablet (Abilify) 5 mg PO DAILY@0612/01/24 05/22/25 oxcarbazepine 300 mg tablet 300 mg PO BID@599,199905/22/25 lorazepam 0.5 mg tablet 0.5 mg PO BEDTIME@1999 MODER ATE 01/04/25 05/22/25 Anxiety polyethylene glycol 3350 17 17 g PO DAILY PRN Constipa tion 01/04/25 05/22/25 gram/dose oral powder (Miralax) budesonide 160 mcg-glycopyr 9 2 inh inhalation BID@060 0,1800 02/05/25 05/22/25 mcg-formot 4.8 mcg/actuation HFA inhaler (Breztri Aerosphere) lorazepam 0.5 mg tablet 0.5 mg PO DAILY PRN Anxiety 02/05/25 05/22/25 roflumilast 500 mcg tablet 500 mcg PO DAILY@0602/0505/22/25 (Zayiresp) valsartan 40 mg tablet 40 mg PO DAILY@0602/05/25 05/22/25 omeprazole 20 mg capsule,delayed 20 mg PO DAILY@0600 0 03/01/25 05/22/25 release prednisone 5 mg tablet 5 mg PO Q48H 03/01/25 acetaminophen 650 mg 1,300 mg PO Q8H PRN Pain 05/22/25 tablet,extended release magnesium oxide 400 mg PO DAILY@03/13/2 5 05/22/25 melatonin 3 mg tablet 3 mg PO BEDTIME PRN Insomnia 04/08/25 05/22/25 oxycodone 5 mg tablet 5 mg PO Q6H PRN Severe Pain (Scale 04/08/25 05/22/25 Score 7-10) chlorhexidine gluconate 0.12 % 15 ml buccal BID@05/13/25 05/22/25 mouthwash furosemide 40 mg tablet 40 mg PO DAILY@0600 05/13/25 05/22/25 Previous Rx's ?Medication ?Instructions ?Recorded nebulizer and compressor #1 ea 12/16/23 ipratropium 0.5 mg-albuterol 3 mg 3 ml inhalation Q4H PRN for 03/02/24 (2.5 mg base)/3 mL nebulization dyspnea #180 mL soln hydromorphone 2 mg tablet 2 mg PO Q6H #16 tabs 5 (Dilaudid) benzocaine 20 % mucosal gel 1 appl mucous membrane QID PRN 04/25/25 (Anbesol (benzocaine) Maximum tooth pain #1 g Strength) doxycycline monohydrate 100 mg 100 mg PO BID #10 caps 05/15/25 capsule prednisone 20 mg tablet 40 mg (2 x 20 mg) PO DAILY # 8 tabs 05/15/25 verapamil 180 mg tablet,extended 180 mg PO DAILY #30 t abs 05/22/25 release prednisone 20 mg tablet 40 mg (2 x 20 mg) PO DAILY 3 days 05/29/25 #6 tabs Allergies Allergy/AdvReac Type Severity Reaction Status Date / Time Iodinated Contrast Media (IV Allergy Intermediate HIVES Verified 05/29/25 15:55 CONTRAST) latex (LATEX) Allergy Unknown RASH Verified 05/29/25 15:55 adhesive tape Allergy Rash Verified 05/29/25 15:55 morphine (MORPHINE) AdvReac Unknown VOMITING Verified 05/29/25 15:55 Review of Systems 2 Review of Systems: ROS is otherwise negative unless mentioned in HPI. [facility] Past Medical History Medical History Chronic lung disease Morbid obesity Pulmonary nodules Diastolic heart failure Chronic lung disease Hypoxia Panic disorder Hypertension Chronic hypercapnic respiratory failure Aortic stenosis Asthma Hypogammaglobulinemia Smoker JUANITO (obstructive sleep apnea) Elevated troponin COPD (chronic obstructive pulmonary disease) Trigeminal neuralgia Mixed hyperlipidemia Peripheral neuropathy Tobacco use disorder Mood disorder Surgical History History of esophagogastroduodenoscopy (EGD) History of colonoscopy History of lumbar discectomy History of tubal ligation History of excision of mass History of shoulder surgery Social History Social History Household Members: Spouse Household Members Other:: dog Housing: Condominium Do you presently have visiting nurse or other home services: Yes ([facility]) Alcohol intake: current Alcohol intake frequency: holidays/special occasions only Alcohol type: hard liquor Comment: pt refusing alarms and assistance OOB Patient Tobacco Use Status: Former Tobacco user Tobacco use type: Cigarette Cigarette Packs Per Day: 4 Cigarettes Per Day: 80.0 Years Smoked: 40 e-Cigarette/Vaping Use: Never Used Second Hand Smoke Exposure: No Substance Use Type: Marijuana Advance Directives: Yes Advance Directives on File: Yes Advance Directives Date on File: 03/09/23 service: No Physical Exam 2 Exam: Exam: Nursing notes and vital signs reviewed. Constitutional: Well-appearing, NAD. Alert. Oriented X3. ENT: Pharynx normal. Neck: Normal inspection. Neck supple. CVS: Normal heart rate and rhythm. Pulses normal. Respiratory: No respiratory distress. Breath sounds normal. Abdomen: Soft. nontender, nondistended. Skin: Skin warm and dry. Normal skin color. Extremities: 1+ pitting bilateral lower extremity edema. Neuro: Oriented X 3. No motor deficit. Vital Signs: Vital Signs: Last Vital Signs Temp 97.8 F 05/29/25 20:18 Pulse 105 H 05/29/25 21:00 Resp 26 H 05/29/25 21:00 BP 153/68 H 05/29/25 20:18 Pulse Ox 98 05/29/25 20:18 O2 Del Method Nasal Cannula 05/29/25 20:18 O2 Flow Rate 2 05/29/25 20:18 Oxygen Flow Rate 2 05/29/25 15:52 BMI result Body Mass Index 44.2 Medications Administered Discontinued Medications Generic Name Dose Route Start Last Admin Trade Name Freq PRN Reason Stop Dose Admin Albuterol Sulfate 5 mg/ 0 mg 05/29/25 20:58 05/29/25 21:01 Albuterol/Ipratropium 3 ml INHALE 05/29/25 20:59 7.5 each ONCE ONE Administration Methylprednisolone Sodium Succinate 125 mg 05/29/25 17:09 05/29/25 17:40 Methylprednisolone Sod Succ 125 Mg/2 Ml Vial IVPUSH 05/29/25 17:10 125 mg ONCE ONE Administration Medical Decision Making Medical Decision Making MDM Narrative: 5:07 PM 05/29/2025 (Romi Long, [place]): Upon my assessment of this patient, she is resting comfortably in the stretcher, on 2 L nasal cannula saturating 99%. Hemodynamically stable. Was given 2 DuoNebs by EMS. Did not receive steroids. We will administer a dose of steroids here with concern for underlying COPD exacerbation. However, she has no wheezing on her exam, I do not hear crackles. We will order an x-ray of the chest as well as proBNP, as her legs have 1+ pitting edema bilaterally concerning for CHF exacerbation. She is not requiring any increase in oxygen at home. Denies any chest pain or palpitations. We will obtain a broad workup and reassess, we will likely plan to discharge home. 7:02 PM-- upon my reassessment, she appears well. Her proBNP has doubled in comparison to previous but does not elevated. troponin is flat, we will obtain repeat. Her x-ray shows no acute pneumonia or fluid overload. Likely viral illness. Negative viral panel. Plan to repeat troponin, ambulatory SpO2 and likely discharge to home. 9:32 PM--Repeat troponin is also flat. Ambulatory SpO2 was within normal limits. she is agreeable with discharge plan. This is likely an acute COPD exacerbation. Therefore, given she has no increasing SOB O2 requirement there is no indication for admission worse to the hospital at this time. We will discharge home with a prescription for oral prednisone for the next several days. Patient is agreeable, expressed understanding. Differential Diagnosis Differential Diagnoses: The differential diagnosis associated with the presentation includes COPD exacerbation, CHF exacerbation, pneumonia, viral illness Admission/Observation Consideration of admission/observation: Escalation of care including admission/observation considered (Not indicated) Lab Data [facility] Lab Attestation statement: I reviewed the patient's lab results. (Overall reassuring.) 05/29/25 17:27 05/29/25 17:27 Labs: Lab Results 05/29/25 05/29/25 05/29/25 Range/Units 17:27 17:34 19:40 WBC 6.9 (4.8-10.8) X10*3/uL RBC 3.48 L (4.20-5.50) X10*6/uL Hgb 10.5 L (12.0-16.0) g/dl Hct 34.3 L (37.0-47.0) % MCV 98.6 H (80.0-98.0) fL MCH 30.2 (27.0-33.0) pg MCHC 30.6 L (31.0-35.0) g/dl RDW 14.9 (11.0-16.0) % Plt Count 338 (160-400) X10*3/uL MPV 9.4 (9.4-12.3) fL Immature Gran % (Auto) 0.1 (0.0-0.4) % Neut % (Auto) 72.9 (45-73) % Lymph % (Auto) 13.8 L (20-40) % [place] % (Auto) 9.0 (2-11) % Eos % (Auto) 3.5 (0-4) % Baso % (Auto) 0.7 (0-2) % Lymph # (Auto) 1.0 L (1.2-4.9) X10*3/uL [place] # (Auto) 0.6 (0.1-1.2) X10*3/uL Eos # (Auto) 0.2 (0.0-0.4) X10*3/uL Baso # (Auto) 0.1 (0.0-0.2) X10*3/uL Abs Immat Gran (auto) 0.01 (0.00-0.03) X10*3/uL Absolute Neuts (auto) 5.0 (2.0-8.3) x10*3/uL Absolute Nucleated RBC 0.000 (0.0-0.012) X10*3/uL Nucleated RBC % (auto) 0.0 (0.0-0.2) /100WBC PT 10.8 L (11.2-13.5) SEC INR 0.9 (0.9-1.1) Sodium 142 (135-145) mmol/L Potassium 4.9 D (3.3-5.1) mmol/L Chloride 109 H (96-108) mmol/L Carbon Dioxide 28 (22-29) mmol/L Anion Gap 10 L (12-20) BUN 10 (9-16) mg/dL Creatinine 0.69 (0.5-1.4) mg/dL Estim Creat Clear Calc 94.9 Estimated GFR > 60 Random Glucose 96 (60-115) mg/dL Calcium 9.1 (8.4-10.2) mg/dL Magnesium 2.0 (1.6-2.6) mg/dL Troponin I High Sens 7.5 6.8 (<3.5-17.0) ng/L NT-Pro-B Natriuret Pep 139.6 (<300) pg/mL Influenza Type A (PCR) NEGATIVE (Negative) Influenza Type B (PCR) NEGATIVE (Negative) RSV RNA Qual (PCR) NEGATIVE (Negative) SARS-CoV-2 RNA (RT-PCR) NEGATIVE (Negative) Independent Interpretation I performed an independent interpretation of an: EKG and Plain X-Ray Interpretation: Rate: 75 Rhythm: nsr Blairs: 42/50/36 Normal P waves. Normal PRADEEP. Normal QRS complex. ST T wave : no dep, elev qTC: 428 prior studies:similar The study has been interpreted contemporaneously by me. I have reviewed the patient's imaging and agree with the radiologist's findings. Radiology Impression Discussion of test interpretation with radiology: I have reviewed the radiologist's reading. Radiologist Impression: Impression: 1. Jacqueline-interstitial soft tissue prominence which can be seen with asthma, reactive airways process or viral illness. 2. No superimposed segmental or lobar pneumonia. Independent Historian Clinical information obtained from an independent historian. History obtained from or confirmed by: EMS External Record Review External record reviewed: Inpatient record, Office record and Other (Prior ER visits) Chronic Conditions Patient?s care impacted by: Other (COPD, CHF) Social Determinants Patient?s care significantly limited by Social Determinants of Health including: Problems related to primary support group Discharge Plan Discharge Clinical Impression: Acute exacerbation of chronic obstructive pulmonary disease Patient Disposition: Home, Self-Care Instructions: COPD (Chronic Obstructive Pulmonary Disease) (DC) Additional Instructions: As we discussed, your workup today was overall reassuring. You have reassuring lab work, as well as an EKG, and chest x-ray which revealed no evidence of any pneumonia. You likely are experiencing a viral illness, which exacerbating her COPD. Please use the prescribed prednisone for the next 3 days. Please follow up with your primary care provider within the next 24-48 hours. With any worsening complaints at any time, return back to the ED for additional assessment. Prescriptions: New prednisone 20 mg tablet 40 mg PO DAILY 3 Days Qty: 6 0RF No Action ipratropium-albuterol 0.5 mg-3 mg(2.5 mg base)/3 mL solution for nebulization 3 ml inhalation Q4H PRN (Reason: for dyspnea) Qty: 180 11RF baclofen 20 mg tablet 20 mg PO TID@0600,1200,1999 aripiprazole [Abilify] 5 mg tablet 5 mg PO DAILY@0600 oxcarbazepine 300 mg tablet 300 mg PO BID@599,1999 acetaminophen 650 mg Tablet Extended Release 1,300 mg PO Q8H PRN (Reason: Pain) magnesium oxide 400 mg magnesium Tablet 400 mg PO DAILY@0600 oxycodone 5 mg tablet 5 mg PO Q6H PRN (Reason: Severe Pain (Scale Score 7-10)) melatonin 3 mg Tablet 3 mg PO BEDTIME PRN (Reason: Insomnia) atorvastatin 80 mg tablet 80 mg PO DAILY@1999 piumsamsgw-zlqsbfvmtjqex-zxef 50-325-40 mg tablet 1 tab PO DAILY MRX1 PRN (Reason: Migraine Headache) hyoscyamine sulfate 0.125 mg tablet 0.25 mg PO Q6H PRN (Reason: Abdominal Discomfort) gabapentin 300 mg capsule 1,200 mg PO TID@0600,1200,1999 duloxetine 60 mg capsule,delayed release(DR/EC) 60 mg PO BID@0600,1999 (DME) nebulizer and compressor Device See Rx Instructions .Route Qty: 1 0RF Rx Instructions: As directed albuterol sulfate 90 mcg/actuation HFA aerosol inhaler 2 puff inhalation Q4H PRN (Reason: Shortness Of Breath Or Wheezing) aspirin 81 mg tablet,delayed release (DR/EC) 81 mg PO DAILY@1999 polyethylene glycol 3350 [Miralax] 17 gram/dose Powder 17 g PO DAILY PRN (Reason: Constipation) lorazepam 0.5 mg tablet 0.5 mg PO BEDTIME@1999 Breztri Aerosphere 160-9-4.8 mcg/actuation HFA aerosol inhaler 2 inh inhalation BID@0600,1800 lorazepam 0.5 mg tablet 0.5 mg PO DAILY PRN (Reason: Anxiety) valsartan 40 mg tablet 40 mg PO DAILY@0600 Protocol: Hold for SBP< HOLD for SBP < : 90 roflumilast [Daliresp] 500 mcg tablet 500 mcg PO DAILY@0600 prednisone 5 mg tablet 5 mg PO Q48H Rx Instructions: Patient takes on even days omeprazole 20 mg capsule,delayed release(DR/EC) 20 mg PO DAILY@0600 hydromorphone [Dilaudid] 2 mg tablet 2 mg PO Q6H Qty: 16 0RF Rx Instructions: Partial Fill upon patient request. Anbesol (benzocaine) Max Str 20 % Gel 1 appl mucous membrane QID PRN (Reason: tooth pain) Qty: 1 0RF Protocol: Apply to: Apply to: tooth and gums furosemide 40 mg tablet 40 mg PO DAILY@0600 Protocol: Hold for SBP< HOLD for SBP < : 90 chlorhexidine gluconate 0.12 % mouthwash 15 ml buccal BID@06,20 doxycycline monohydrate 100 mg capsule 100 mg PO BID Qty: 10 0RF Rx Instructions: Take 1 tablet twice a day with food for the next 5 days, ending 05/20. prednisone 20 mg tablet 40 mg PO DAILY Qty: 8 0RF Rx Instructions: Take 40 mg (2 tabs) daily x3 days and then 20 mg (1 tab) daily for an additional 2 days calcium carbonate-vitamin D3 600 mg-5 mcg (200 unit) tablet 1 tab PO DAILY@1999 prazosin 2 mg capsule 2 mg PO DAILY@1999 (DME) Oxygen Home Use Kit See Rx Instructions .Route Rx Instructions: As directed verapamil 180 mg tablet extended release 180 mg PO DAILY Qty: 30 5RF Rx Instructions: Adjusting dose Stop 120mg bid and change to 180mg once daily ( doesnt want to make change for 2 weeks) Referrals: Antione Segura PA-C [Primary Care Provider, Internal Medicine] Print Language: Sami
[2025-05-29 17:32] LABS: MANUAL DIFF FLAG NO
[2025-05-29 17:57] LABS: Anion Gap 10 (12-20); Blood Urea Nitrogen 10 mg/dL (9-16); Calcium 9.1 mg/dL (8.4-10.2); Carbon Dioxide 28 mmol/L (22-29); Chloride 109 mmol/L (96-108); Creatinine Clr Calc Pharmacy 94.9; Estimated Glomerular Filt Rate > 60; Magnesium 2.0 mg/dL (1.6-2.6); Potassium 4.9 mmol/L (3.3-5.1); Sodium 142 mmol/L (135-145)
[2025-05-29 18:01] LABS: NT Pro B Type Natriuretic Pept 139.6 pg/mL (<300); Troponin-I High Sensitivity 7.5 ng/L (<3.5-17.0)
[2025-05-29 18:03] LABS: INTERNATIONAL NORM RATIO 0.9 (0.9-1.1); Prothrombin Time 10.8 SEC (11.2-13.5)
[2025-05-29 18:11] LABS: Hematocrit 34.3 % (37.0-47.0); Hemoglobin 10.5 g/dl (12.0-16.0); Imm Gran Abs Auto 0.01 X10*3/uL (0.00-0.03); Imm Gran Pct Auto 0.1 % (0.0-0.4); Lymphocytes Absolute Auto 1.0 X10*3/uL (1.2-4.9); Mean Corpuscular HGB Conc 30.6 g/dl (31.0-35.0); Mean Corpuscular Hemoglobin 30.2 pg (27.0-33.0); Mean Corpuscular Volume 98.6 fL (80.0-98.0); NRBC Abs Auto 0.000 X10*3/uL (0.0-0.012); NRBC Pct Auto 0.0 /100WBC (0.0-0.2); Platelet Count 338 X10*3/uL (160-400); Red Blood Count 3.48 X10*6/uL (4.20-5.50); White Blood Count 6.9 X10*3/uL (4.8-10.8)
[2025-05-29 18:20] LABS: Resp Syncy Virus RNA Qual PCR NEGATIVE (Negative); SARS COV2 PCR INHOUSE NEGATIVE (Negative)
--- OUTSIDE RECORDS SUMMARY | 2025-05-29 20:09 | XMS_ITS | Clinical Summary ---
Author Organization [facility] Address [address] [id number] Care Team Providers Care Skin Piler Name Role Phone Antione Segura Primary Care Provider [phone] Allergies Active Allergy Reactions Criticality Noted Date [...] Care Team (Late st Contact Info) Description 06/27/2025 3:20 PM EST Follow-Up [facility] [address] [place] [id number] Artificial Candy Maker: Remy Santos MD [address] [place] [id number] Health Maintenance Due Date Last Done Comments [...] 02/27/2022, Additional history exists COVID-19 Vaccine ( - season) 2025 07/18/2021, 10/02/2020, 09/11/2020 Mammogram 05/26/2025 05/26/2023, 05/14, 09/29/2021, Additional history exists CT Lung Cancer Screening (Baseline) 11/30/2025 11/30/2024, 08/27/2022 Basic Metabolic Panel 12/14/2025 12/14/2024 Hepatitis C Screening Completed 05/25/2019 Pneumococcal Vaccine: 50+ Years Completed 02/29/2024, 02/22/2020 Hepatitis B Vaccines Aged Out No long er eligible based on patient's age to complete this topic Procedures * Due to [place] [employer] law, this organization might not be sharing negative HIV tests. Procedure Name Priority Date/Time Associated Diagnosis Comments AMB EXTERNAL CT CHEST, OUTSI DE RESULT 11/30/2024 from Last 3 Months or Most Recently Relevant to Health Maintenance Results * Due to [place] [employer] law, this organization might not be sharing negative HIV tests. * CT Chest, Outside Result (11/30/2024) 11/30/2024 us Onbase Scan Bernadette AMB EXTERNAL RESULT PROCEDURE S Final Result from Last 3 Months or Most Recently Relevant to Health Maintenance Insurance [facility] HMO/POS Care Teams Skin Piler Relationship Specialty Start Date End Date Antione Segura PA [address] [place] [id number] PCP - General Emergency Medicine 01/10/25
--- OUTSIDE RECORDS SUMMARY | 2025-05-29 20:09 | XMS_ITS | Encounter Summary ---
Author Organization [facility] Address [address] [place] [address] [place] [address] Phone Care Team Providers Care Senior Java Software Engineer Name Role Phone Lang Germain MD Unavailable Jennifer Duke PLAYER SERVICES REPRESENTATIVE Primary Care Provider [phone] Sirisha Huertas FINISHER CARD TENDER Primary Care Provider [phone] Jn Cardoza MD Unavailable Denys Henriquez MD Unavailable [phone] Liyah Patterson MD Unavailable Liyah Patterson MD Primary Care Provider [phone] Antione Segura PA-C Primary Care Provider Rhett Cortez MD Unavailable Encounter Details Date Type Department Care Team (Late st Contact Info) Description 11/11/2021 Transcribe Orders [facility] PFT Lab [address] [place] [address] Jennifer Duke, PLAYER SERVICES REPRESENTATIVE [facility] [address] [place] [address] [email or web address] Social History Tobacco Use Types Packs/Day Years [...] Description 05/31/2025 2:00 AM EST Appointment [facility] [address] [place] [phone] Shakira Hand RN [address] [place] [address] 05/31/2025 11:30 AM EST Appointment [facility] [address] [place] [phone] Raisa Batuista [address] [place] [address] 06/04/2025 12:30 AM EST Appointment [facility] [address] [place] [phone] Shakira Hand RN [address] [place] [address] 06/05/2025 1:00 AM EST Appointment [facility] [address] [place] [phone] Raisa Bautista [address] [place] [address] 06/06/2025 12:30 AM EST Appointment [facility] [address] [place] [phone] Raisa Bautista [address] [place] [address] 06/12/2025 1:30 AM EST Appointment [facility] [address] [place] [phone] Shakira Hand, RN [address] [place] [address] 06/12/2025 2:00 AM EST Appointment [facility] [address] [place] [phone] Raisa Bautista [address] [place] [address] 06/13/2025 2:00 PM EST Appointment [facility] PFT Lab [address] [place] [address] Antione Segura PA-C [address] [place] [address] 06/14/2025 1:00 AM EST Appointment [facility] [address] [place] [address] Raisa Bautista [address] [place] [address] 06/19/2025 1:00 AM EST Appointment [facility] [address] [place] [address] Raisa Bautista [address] [place] [address] 06/19/2025 2:00 AM EST Appointment [facility] [address] [place] [phone] Shakira Hand, HUA [address] [place] [address] 06/21/2025 1:00 AM EST Appointment [facility] [address] [place] [phone] Raisa Bautista [address] [place] [address] 06/25/2025 9:30 AM EST Telemedicine [facility] Neurology [facility] [address] [place] [address] Jn Cardoza MD 22 [facility], 2nd [place] [address] 06/26/2025 1:00 AM EST Appointment [facility] [address] [place] [phone] Raisa Bautista [address] [place] [address] 06/27/2025 Appointment [facility] [address] [place] [phone] Shakira Hand RN [address] [place] [address] 06/28/2025 1:00 AM EST Appointment [facility] [address] [place] [phone] Raisa Bautista [address] [place] [address] 07/03/2025 1:00 AM EST Appointment [facility] [address] [place] [phone] Raisa Bautista [address] [place] [address] 07/03/2025 1:00 PM EST Office Visit [facility] Pulmonology, Allergy and Critical Care Medicine Clinic [address] [place] [address] [phone] Celso Akins MD [address] [place] [address] 07/04/2025 Appointment [facility] [address] [place] [phone] Shakira Hand RN [address] [place] [address] 07/04/2025 11:20 AM EST Office Visit [facility] Primary Care Clinic [address] [place] [address] Antioen Segura PA-C 40 [place] [address] 07/05/2025 1:00 AM EST Appointment [facility] [address] [place], [place] [phone] Rasia Bautista [address] [place] [address] 07/10/2025 1:00 AM EST Appointment [facility] [address] [place] [address] Raisa Bautista [address] [place] [address] 07/11/2025 Appointment [facility] [address] [place] [phone] Shakira Hand RN [address] [place] [address] 08/21/2025 10:30 AM EDT Appointment [facility] [address] [place] [address] Antione Segura PA-C [address] [place] [address] documented as of this encounter Visit Diagnoses Not on filedocumented in this encounter Additional Health Concerns Assessment Noted Time PHQ-2 Depression Total Score: 0 05/25/20 19 9:02 AM EST documented as of this encounter Care Teams Senior Java Software Engineer Relationship Specialty Start Date End Date Jennifer Duke, PLAYER SERVICES REPRESENTATIVE [address] [place] [address] [email or web address] PCP - General Family Medicine 01/31/20 06/22/23 Sirisha Huertas FNP [address] [place] [address] [email or web address] PCP - General Nurse Practitioner 06/23/23 08/03/24 Liyah Patterson MD [address] [place] [address] [email or web address] PCP - General Family Medicine 08/04/24 10/11/24 Antione Segura PA-C [address] [place] [address] [email or web address] PCP - General Physician Broach Operator 10/12/24 Lang Germain MD [address] [place] [address] [email or web address] Insurance Assigned Provider 09/18/23 02/19/24 Jn Cardoza MD [address] [place] [address], 2nd [place] [address] [email or web address] Neurology 02/03/24 Denys Henriquez MD [address] [place] [address] [place] [address] Pulmonary Disease 02/03/24 Liyah Patterson MD [address] [place] [address] [email or web address] Insurance Assigned Provider 02/19/24 01/20/25 Rhett Cortez MD [address] [place] [address] Insurance Assigned Provider 01/20/25 documented as of this encounter Additional Source Comments The information contained in this document represents components of the legal health record. It is not the complete legal health record.[facility]
--- OUTSIDE RECORDS SUMMARY | 2025-05-29 20:09 | XMS_ITS | Encounter Summary ---
Author Organization [facility] Address [address] [address] Phone Care Team Providers Care Wind Turbine Sheet Metal Worker Name Role Phone Jn Cardoza MD Unavailable Denys Henriquez MD Unavailable [phone] Antione Segura PA-C Primary Care Provider Rhett Cortez MD Unavailable Encounter Details Date Type Department Care Team (Late st Contact Info) Description 02/09/2025 Home Health Resumption of Care Planning [facility] [address] [place] [phone] Koki Simons RN [address] [place] [address] [email or web address] Social [...] high school, GED, job training, learning the Togolese language, technical skills, or developing parenting skills)? [...] Appointment [facility] [address] [place] [phone] Shakira Hand RN [address] [place] [address] 05/31/2025 11:30 AM EST Appointment [facility] [address] [place] [phone] Raisa Bautista [address] [place] [address] 06/04/2025 12:30 AM EST Appointment [facility] [address] [place] [phone] Shakira Hand RN [address] [place] [address] 06/05/2025 1:00 AM EST Appointment [facility] [address] [place] [phone] Raisa Bautista [address] [place] [address] 06/06/2025 12:30 AM EST Appointment [facility] [address] [place] [phone] Raisa Bautista [address] [place] [address] 06/12/2025 1:30 AM EST Appointment [facility] [address] [place] [phone] Shakira Hand, HUA [address] [place] [address] 06/12/2025 2:00 AM EST Appointment [facility] [address] [place] [phone] Lily Raisa M [address] [place] [address] 06/13/2025 2:00 PM EST Appointment [facility] PFT [facility] [address] [place] [address] Antione Segura PA-C [address] [place] [address] 06/14/2025 1:00 AM EST Appointment [facility] [address] [place] [address] Lily, Raisa M [address] [place] [address] 06/19/2025 1:00 AM EST Appointment [facility] [address] [place] [phone] Lily Raisa M [address] [place] [address] 06/19/2025 2:00 AM EST Appointment [facility] [address] [place] [phone] Shakira Hand, HUA [address] [place] [address] 06/21/2025 1:00 AM EST Appointment [facility] [address] [place] [address] Lily Raisa M [address] [place] [address] 06/25/2025 9:30 AM EST Telemedicine [facility] Neurology Clinic [address] [place] [address] Jn Cardoza MD [address] [address] 06/26/2025 1:00 AM EST Appointment [facility] [address] [place] [phone] Raisa Bautista [address] [place] [address] 06/27/2025 Appointment [facility] [address] [place] [phone] Shakira Hand RN [address] [place] [address] 06/28/2025 1:00 AM EST Appointment [facility] [address] [place] [phone] Raisa Bautista [address] [place] [address] 07/03/2025 1:00 AM EST Appointment [facility] [address] [place] [phone] Raisa Bautista [address] [place] [address] 07/03/2025 1:00 PM EST Office Visit [facility] Pulmonology, Allergy and Critical Care Medicine Clinic [address] [place] [address] Celso Akins MD [address] [place] [phone] 07/04/2025 Appointment [facility] [address] [place] [phone] Shakira Hand RN [address] [place] [address] 07/04/2025 11:20 AM EST Office Visit [facility] Primary Care Clinic [address] [place] [address] Antione Segura PA-C [address] [place] [address] 07/05/2025 1:00 AM EST Appointment [facility] [address] [place] [phone] Lily Raisa Nuris [address] [place] [address] 07/10/2025 1:00 AM EST Appointment [facility] [address] [place] [address] Raisa Bautista [address] [place] [phone] 07/11/2025 Appointment [facility] [address] [place] [phone] Shakira Hand RN [address] [place] [address] 08/21/2025 10:30 AM EDT Appointment [facility] [address] [place] [address] Antione Segura PA-C [address] [place] [address] documented as of this encounter Visit Diagnoses Not on filedocumented in this encounter Additional Health Concerns Assessment Noted Time PHQ-9 Depression Total Score: 15 025 9:44 AM EDT PHQ-2 Depression Total Score: 4 02/01/20 25 9:44 AM EDT documented as of this encounter Care Teams Wind Turbine Sheet Metal Worker Relationship Specialty Start Date End Date Antione Segura PA-C [address] [place] [address] PCP - General Physician Transmission Technician 10/12/24 Jn Cardoza MD 22 [facility], 2nd [place] [address] Neurology 02/03/24 Denys Henriquez MD [address] [place] [address] [place] [address] Pulmonary Disease 02/03/24 Rhett Cortez MD [address] [place] [address] Insurance Assigned Provider 01/20/25 documented as of this encounter Additional Source Comments The information contained in this document represents components of the legal health record. It is not the complete legal health record.[facility]
--- OUTSIDE RECORDS SUMMARY | 2025-05-29 20:09 | XMS_ITS | Encounter Summary ---
Author Organization [facility] Address [address] [place] [address] Phone Care Team Providers Care Senior Project Leader/Team Lead Name Role Phone Lang Germain MD Unavailable [phone] Jennifer Duke SUPERVISOR COATING Primary Care Provider Sirisha Huertas FRAME WIRER Primary Care Provider Jn Cardoza MD Unavailable Denys Henriquez MD Unavailable Liyah Patterson MD Unavailable Liyah Patterson MD Primary Care Provider [phone] Antione Segura PA-C Primary Care Provider Rhett Cortez MD Unavailable Encounter Details Date Type Department Care Team (Late st Contact Info) Description 11/27/2021 Procedure Pass [facility], [address] [place] [address] Social History Tobacco Use Types Packs/Day Years [...] EST Appointment [facility] [address] [place] [address] Shakira Hand RN [address] [place] [address] [email or web address] 05/31/2025 11:30 AM EST Appointment [facility] [address] [place] [address] Raisa Bautista [address] [place] [address] [email or web address] 06/04/2025 12:30 AM EST Appointment [facility] [address] [place] [address] Shakira Hand RN [address] [place] [address] [email or web address] 06/05/2025 1:00 AM EST Appointment [facility] [address] [place] [phone] Raisa Bautista [address] [place] [address] [email or web address] 06/06/2025 12:30 AM EST Appointment [facility] [address] [place] [phone] LilyRaisa [address] [place] [address] [email or web address] 06/12/2025 1:30 AM EST Appointment [facility] [address] [place] [phone] Shakira Hand, HUA [address] [place] [address] [email or web address] 06/12/2025 2:00 AM EST Appointment [facility] [address] [place] [phone] LilyRaisa [address] [place] [address] [email or web address] 06/13/2025 2:00 PM EST Appointment [facility] [address] [place] [address] Antione Segura PA-C [address] [place] [address] [email or web address] 06/14/2025 1:00 AM EST Appointment [facility] [address] [place] [address] Lily Raisa Lawler [address] [place] [address] [email or web address] 06/19/2025 1:00 AM EST Appointment [facility] [address] [place] [address] Lily Raisa Lawler [address] [place] [address] [email or web address] 06/19/2025 2:00 AM EST Appointment [facility] [address] [place] [phone] Shakira Hand, HUA [address] [place] [address] 06/21/2025 1:00 AM EST Appointment [facility] [address] [place] [phone] Lily, Raisa M [address] [place] [address] 06/25/2025 9:30 AM EST Telemedicine [facility] Neurology Clinic [address] [place] [address] Jn Cardoza MD 22 [facility], 2nd [place] [address] 06/26/2025 1:00 AM EST Appointment [facility] [address] [place] [phone] Lily Raisa M [address] [place] [address] 06/27/2025 Appointment [facility] [address] [place] [phone] Shakira Hand, HUA [address] [place] [address] 06/28/2025 1:00 AM EST Appointment [facility] [address] [place] [address] Lily Raisa M [address] [place] [address] 07/03/2025 1:00 AM EST Appointment [facility] [address] [place] [address] Lily Raisa M [address] [place] [address] 07/03/2025 1:00 PM EST Office Visit [facility] Pulmonology, Allergy and Critical Care Medicine Clinic [address] [place] [address] Celso Akins MD [address] [place] [address] 07/04/2025 Appointment [facility] [address] [place], [place] [phone] Shakira Hand RN 168 [place] [address] 07/04/2025 11:20 AM EST Office Visit [facility] Primary Care Clinic [address] [place] [address] Antione Segura PA-C [address] [place] [address] 07/05/2025 1:00 AM EST Appointment [facility] [address] [place], [place] [phone] Lily Raisa M [address] [place] [address] 07/10/2025 1:00 AM EST Appointment [facility] [address] [place], [place] [phone] Lily Raisa M [address] [place] [address] 07/11/2025 Appointment [facility] [address] [place], [place] [phone] Shakira Hand RN [address] [place] [address] 08/21/2025 10:30 AM EDT Appointment [facility] [address] [place] [address] Antione Segura PA-C [address] [place] [address] [email or web address] documented as of this encounter Visit Diagnoses Not on filedocumented in this encounter Additional Health Concerns Assessment Noted Time PHQ-2 Depression Total Score: 0 05/25/20 19 9:02 AM EST documented as of this encounter Care Teams Senior Project Leader/Team Lead Relationship Specialty Start Date End Date Jennifer Duke, SUPERVISOR COATING [address] [place] [address] [email or web address] PCP - General Family Medicine 01/31/20 06/22/23 Sirisha Huertas FNP [address] [place] [address] [email or web address] PCP - General Nurse Practitioner 06/23/23 08/03/24 Liyah Patterson MD [address] [place] [address] [email or web address] PCP - General Family Medicine 08/04/24 10/11/24 Antione Segura PA-C [address] [place] [address] [email or web address] PCP - General Physician Production Graphic Designer 10/12/24 Lang Germain MD [address] [place] [address] [email or web address] Insurance Assigned Provider 09/18/23 02/19/24 Jn Cardoza MD [address] [place] [address], 2[address] [place] [address] Neurology 02/03/24 Denys Henriquez MD [address] [place] [address] [place] [address] Pulmonary Disease 02/03/24 Liyah Patterson MD 15 [facility] [address]. [address] [place] [address] [email or web address] Insurance Assigned Provider 02/19/24 01/20/25 Rhett Cortez MD [address] [place] [address] Insurance Assigned Provider 01/20/25 documented as of this encounter Additional Source Comments The information contained in this document represents components of the legal health record. It is not the complete legal health record.[facility]
--- OUTSIDE RECORDS SUMMARY | 2025-05-29 20:09 | XMS_ITS | Encounter Summary ---
Author Organization [facility] Address [address] [place] [phone] Phone Care Team Providers Care Papier Mache' Molder Name Role Phone Lang Germain MD Unavailable Jennifer Duke METAL EXPEDITER Primary Care Provider Sirisha Huertas SILVER SERVICE WAITER Primary Care Provider Jn Cardoza MD Unavailable Denys Henriquez MD Unavailable Liyah Patterson MD Unavailable Liyah Patterson MD Primary Care Provider [phone] Antione Segura PA-C Primary Care Provider Rhett Cortez MD Unavailable Encounter Details Date Type Department Care Team (Late st Contact Info) Description 06/30/2022 Procedure Pass [facility], Ct Scan - [address] [address] Social History Tobacco Use Types Packs/Day Years [...] Appointment [facility] [address] [place] [phone] Shakira Hand RN [address] [place] [address] 05/31/2025 11:30 AM EST Appointment [facility] [address] [place] [phone] Raisa Bautista [address] [place] [phone] 06/04/2025 12:30 AM EST Appointment [facility] [address] [place] [phone] Shakira Hand RN [address] [place] [address] 06/05/2025 1:00 AM EST Appointment [facility] [address] [place] [phone] Raisa Bautista [address] [place] [phone] 06/06/2025 12:30 AM EST Appointment [facility] [address] [place] [phone] Raisa Bautista [address] [place] [address] 06/12/2025 1:30 AM EST Appointment [facility] [address] [place] [phone] Shakira Hand, HUA [address] [place] [address] 06/12/2025 2:00 AM EST Appointment [facility] [address] [place] [phone] Lily Raisa M [address] [place] [address] 06/13/2025 2:00 PM EST Appointment [facility] [address] [place] [phone] Antione Segura PA-C [address] [place] [address] 06/14/2025 1:00 AM EST Appointment [facility] [address] [place] [address] Lily, Raisa M [address] [place] [address] 06/19/2025 1:00 AM EST Appointment [facility] [address] [place] [address] Lily, Raisa M [address] [place] [address] 06/19/2025 2:00 AM EST Appointment [facility] [address] [place] [address] Shakira Hand, HUA [address] [place] [address] 06/21/2025 1:00 AM EST Appointment [facility] [address] [place] [address] LilyRaisa wasserman M [address] [place] [address] 06/25/2025 9:30 AM EST Telemedicine [facility] [address] [place] [phone] Jn Cardoza MD [address] [address] 06/26/2025 1:00 AM EST Appointment [facility] [address] [place] [phone] Raisa Bautista [address] [place] [address] 06/27/2025 Appointment [facility] [address] [place] [phone] Shakira Hand RN [address] [place] [address] 06/28/2025 1:00 AM EST Appointment [facility] [address] [place] [phone] Lily Raisa M [address] [place] [address] 07/03/2025 1:00 AM EST Appointment [facility] [address] [place] [phone] Lily Raisa M [address] [place] [address] 07/03/2025 1:00 PM EST Office Visit [facility] Pul[facility]ology[facility] All[facility] [address] [place] [phone] Celso Akins MD [address] [place] [phone] 07/04/2025 Appointment [facility] [address] [place] [phone] Shakira Hand RN [address] [place] [phone] 07/04/2025 11:20 AM EST Office Visit [facility] [address] [place] [address] Antione Segura PA-C [address] [place] [phone] 07/05/2025 1:00 AM EST Appointment [facility] [address] [place] [phone] Lily Raisa M [address] [place] [phone] 07/10/2025 1:00 AM EST Appointment [facility] [address] [place] [phone] Lily Raisa Nuris [address] [place] [phone] 07/11/2025 Appointment [facility] [address] [place] [address] Shakira Hand RN [address] [place] [phone] 08/21/2025 10:30 AM EDT Appointment [facility] [address] [place] [phone] Antione Segura PA-C [address] [place] [phone] documented as of this encounter Visit Diagnoses Not on filedocumented in this encounter Additional Health Concerns Assessment Noted Time PHQ-9 Depression Total Score: 18 023 8:53 AM EST PHQ-2 Depression Total Score: 6 06/26/19 23 8:53 AM EST documented as of this encounter Care Teams Papier Mache' Molder Relationship Specialty Start Date End Date Jennifer Duke, METAL EXPEDITER [address] [place] [address] [email or web address] PCP - General Family Medicine 01/31/20 06/22/23 Sirisha Huertas FNP [address] [place] [phone] [email or web address] PCP - General Nurse Practitioner 06/23/23 08/03/24 Liyah Patterson MD [address] [place] [phone] [email or web address] PCP - General Family Medicine 08/04/24 10/11/24 Antione Segura PA-C [address] [place] [phone] [email or web address] PCP - General Physician Strategic Marketing Manager 10/12/24 aLng Germain MD [address] [place] [phone] [email or web address] Insurance Assigned Provider 09/18/23 02/19/24 Jn Cardoza MD 22 [facility], [address]nd [place] [address] [email or web address] Neurology 02/03/24 Denys Henriquez MD [address] [place] [address] [place] [address] Pulmonary Disease 02/03/24 Liyah Patterson MD [address] [address] [email or web address] Insurance Assigned Provider 02/19/24 01/20/25 Rhett Cortez MD [address] [place] [phone] [email or web address] Insurance Assigned Provider 01/20/25 documented as of this encounter Additional Source Comments The information contained in this document represents components of the legal health record. It is not the complete legal health record.[facility]
--- OUTSIDE RECORDS SUMMARY | 2025-05-29 20:09 | XMS_ITS | Clinical Summary ---
Author Organization [facility] Address [address] [place] [phone] Phone Care Team Providers Care Professional Application Designer Name Role Phone Jn Cardoza MD Unavailable Denys Henriquez MD Unavailable Antione Segura PA-C Primary Care Provider [phone] Rhett Cortez MD Unavailable Allergies Active Allergy [...] tablet 025 Active atorvastatin (LIPITOR) 80 MG tabletIndications: Mixed hyperlipidemia Take 1 tablet (80 mg total) by mouth every morning. 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 X 4 days Active oxyCODONE 5 MG immediate release tabletIndications: Acute right-sided low back pain without sciatica Take 1 tablet (5 mg total) by mouth every 6 (six) hours as needed for pain (specific location in comments). 28 tablet 025 Active furosemide (LASIX) 20 MG tablet Take 1 tablet (20 mg total) by mouth daily. 30 tablet 1 025 Active albuterol 90 mcg/actuation inhaler INHALE TWO PUFFS BY MOUTH EVERY 4 HOURS NEEDED FOR WHEEZING 8.5 g 09/252024 Discontinued predniSONE (DELTASONE) 5 MG tablet Take 5 mg by mouth every other day. 2024 Discontinued(N o longer taking) amoxicillin (AMOXIL) 500 MG capsule Take 500 mg by mouth 3 (three) times a day. 2024 Discontinued(N o longer taking) oxyCODONE 5 MG immediate release tabletIndications: Acute right-sided low back pain without sciatica Take 1 tablet (5 mg total) by mouth every 6 (six) hours as needed for pain (specific location in comments). 28 tablet 2024 Discontinued(R eorder) DULoxetine (CYMBALTA) 60 MG capsuleIndications :Anxiety TAKE ONE CAPSULE BY MOUTH TWICE A DAY 180 capsule 3 2024 Discontinued(N o longer taking) furosemide (LASIX) 20 MG tablet Take 1 tablet (20 mg total) by mouth daily. 7 tablet 2024 Discontinued(R eorder) predniSONE (DELTASONE) 20 MG tablet Take 20 mg by mouth as directed. 2024 Discontinued(N o CancelRX) furosemide (LASIX) 20 MG tablet Take 1 tablet (20 mg total) by mouth daily. 7 tablet 2024 Discontinued(R eorder) predniSONE (DELTASONE) 20 MG tablet Take 20 mg by mouth daily. 40MG DAILY 3 DAYS, 20MG DAILY 2 DAYS 2024 doxycycline monohydrate (MONODOX) 100 MG capsule Take 100 mg by mouth 2 (two) times a day. 025 2024 Active Problems Problem Noted Date Diagnosed [...] A-fib and have her follow-up with the floriculture teacher Acute on chronic hypoxic respiratory failure Assessment & Plan (05/29/2025 12:48 PM EST): Patient with a history of several admissions to [facility] within the last 3 months secondary [...] mentions that she is tired and was recently seen by cardiology who felt that her episode of dizziness upon standing was secondary to orthostatic hypotension however upon further discussion her dizziness is throughout the time when she is ambulating signifying it could be multifactorial secondary to not only her COPD which is quite advanced but also underlying valve abnormalities. Of note patient had been noted to have aortic stenosis on echocardiogram and she has not a noted significant murmur on physical examination. I do think that her acute on chronic hypoxic respiratory failure is multifactorial secondary to COPD CHF and possible underlying valve disorder. Upon conclusion of her last visit patient went and did a second opinion through respiratory therefore I did reach out to [facility] pulmonary and patient does have an appointment on 07/03/[address] Akins. She was also advised to undergo pulmonary function tests which have been ordered. -Patient will continue Lasix 20 mg daily. -She will continue to monitor her blood pressures closely at home she will hold her Lasix if her systolic blood pressure is less than 110 -She will follow-up with [facility] pulmonary for second opinion on 07/03 -She will continue her supplemental oxygen -Patient was advised that if her shortness of breath increased she will need to call 911 and be transferred to the hospital. Assessment & Plan (05/16/2025 6:10 PM EST): Patient has had several admissions to [facility] within the last 3 months for COPD/CHF exacerbations. Most recently patient was admitted on 05/13 through 05/15 and discharged home on prednisone taper and doxycycline 100 mg p.o. twice daily. Patient did receive 40 mg IV Lasix twice daily however developed hypotension while hospitalized. However patient continues to have increasing shortness of breath and lower extremity edema therefore I advised the patient to resume her Lasix with adjustments to her blood pressure medications. She is supposed to have an upcoming appointment scheduled for follow-up with her calculus professor in the next 2 weeks however feels as though is that she would like a second opinion as she feels that she has not been getting adequate care. She also mentions that she has an upcoming appointment with a floriculture teacher in a couple of weeks with her last echocardiogram showing aortic stenosis. Patient continues to have episodes of dizziness and increasing shortness of breath especially upon exertion which I believe is multifactorial secondary to heart failure, COPD and her aortic stenosis. On physical exam today she is noted to have 2+ pitting edema, significant AR however no wheezing rales or rhonchi noted in her lungs. I did explain to the patient about options to help within the home such as our social work and there has been a referral placed. They have been playing phone tag and they plan to reach out to her I have also discussed using a chairlift within the home and obtaining a wheelchair for better access and to help minimize the exertion and limit the amount of times that she needs to recover. I have placed referrals for these to see if they would be medically covered through her insurance. However if they are not I did advise the and gave him [facility] [employer]. at [address] [place] [address] in [facility] [phone] which is a nonprofit [employer] that helps distribute medical supplies to patients that are unable to have them provided. -Patient was advised to continue her doxycycline 100 mg p.o. twice daily for its entirety. She was advised to continue her prednisone taper as directed -I have placed her back on her Lasix 20 mg daily however I have asked her to hold her afternoon dose of her verapamil therefore she will only take her verapamil once daily and continue her losartan. -She will monitor her blood pressures closely at home. She was advised to hold her Lasix if her systolic blood pressure is less than 110. -She is to follow-up with her floriculture teacher as scheduled -I have placed a referral to [facility] pulmonology for second opinion -[facility] paperwork filled out for the Assessment & Plan (03/28/2025 4:20 PM EDT): Patient was recently admitted to [facility] from 03/13-03/19 for acute on chronic hypoic [...] L. She has to follow-up with her calculus professor and to schedule another sleep study to be completed. Assessment & Plan (12/28/2024 6:54 PM EDT): Respiratory status improved on course of antibiotics and prednisone. Continue deep breathing and monitor for any worsened respiratory status. Monitor home spO2. Continue benzonatate prn. Continue O2 therapy as prescribed. Referral placed to [facility] Pulmonology. Trigeminal neuralgia 12/28/2024 Assessment & [...] last year and this was completed at [facility] through her floriculture teacher -Her blood pressures have been not well-controlled [...] daily. She follows with Dr. Thurman at [facility]. Patient follows regularly with him. Her [...] Does have outpatient stress test scheduled with [facility] Cardiology. Discussed that results would indicate future management and whether that may include cardiac catheterization. I do not see record of this within her discharge summary from [facility] Assessment & Plan (12/22/2023 9:33 AM EDT): [...] should be seen and followed by a color control supervisor which she does already have appointment scheduled [...] how this is not appropriate given prescribed [place] for pain and risk of LINE FISHER depression. She is aware of these risks and agrees to continuing medication as prescribed. She understands that she can contact the office should she be interested in discussion of medication regimen. Assessment & Plan (11/01/2023 10:20 AM EDT): PHQ9 Flowsheet Row Office Visit from 10/28/2023 in [facility] PHQ-9 Total Score 24 [...] study and speech evaluation when inpatient at [facility]. Discussed referral to gastroenterology discussed potential of [...] does have an upcoming appointment with her calculus professor next week. Of note she also saw another calculus professor Remy Bautista out at [facility] pulmonary and has a follow-up [...] follows closely with Dr. Henriquez out of [facility]. She is on Daliresp, DuoNebs and [...] a scheduled appointment on 12/18 with her calculus professor. She is hoping to get this moved [...] follows closely with Dr. Henriquez out of [facility]. She is on Daliresp, DuoNebs and [...] Continue prednisone as prescribed upon discharge from [facility]. Discussed concern for coronary requirement of nebulizer treatments and albuterol rescue inhaler. We also reviewed the importance of vaping cessation, she remains precontemplative. She does have follow-up appointment scheduled with Dr. Henriquez and has resumed VNA services. Assessment & Plan (11/29/2023 5:28 PM EDT): Recent admission for COPD exacerbation with acute hypoxemic respiratory failure. Current calculus professor is Dr. Henriquez at [facility]. She is interested in establishing care with [facility] pulmonology some of her specialists are within the [facility] system for better continuity of care. She understands that she should continue with Dr. Sevilla until she is able to [facility] supplemental oxygen 03/11/2023 10/12/2024 Assessment & [...] EST): Continue follow-up with Dr. 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 We discussed concern for LINE FISHER depression and need to minimize use especially [...] 3 times daily and she was on [place] however during her last hospital stay this [...] Encounters Date Type Department Care Team Description 05/29/2025 8:20 AM EST Office Visit [facility] [address] [facility] [place] [address] Antione Segura PA-C Acute on chronic hypoxic respiratory failure (Primary Dx) 05/29/2025 Episode Documentation Update [facility] [address] [place] [phone] Margy Rubalcava 05/28/2025 1:30 PM EST Home Care Visit [facility] [address] [place] [phone] Raisa Bautista TORPEDO SPECIALIST HOME VISIT 05/28/2025 1:30 AM EST Home Care Visit [facility] [address] [place] [phone] Rich Mariscal LPN BULL GANG SUPERVISOR HOME VISIT 05/24/2025 2:30 AM EST Home Care Visit [facility] [address] [place] [phone] Raisa Bautista TORPEDO SPECIALIST HOME VISIT 05/24/2025 2:30 AM EST Home Care Visit [facility] [address] [place] [phone] Rich Mariscal LPN BULL GANG SUPERVISOR HOME VISIT 05/23/2025 Telephone [facility] Pul[facility], [facility] [address] [place] [phone] Celso Akins MD 05/21/2025 12:00 PM EST Home Care Visit [facility] [address] [place] [phone] Yane Lanza, PT PT EVALUATION 05/21/2025 11:00 AM EST Home Care Visit [facility] [address] [place] [phone] Shakira Hand RN SN HOME VISIT 05/18/2025 Enrollment [facility] [address] [place] [address] 05/18/2025 Telephone [facility] Primary Care [facility] [address] [place] [address] Antione Segura PA-C VNA Orders 05/18/2025 Plan of Care Documentation [facility] [address] [facility] [place] [phone] 05/17/2025 10:30 AM EST Home Care Visit [facility] [address] [place] [address] Shakira Hand, HUA SN OASIS START OF CARE (SOC) 05/17/2025 Refill [facility] [address] [place] [address] Antione Segura PA-C Medication Refill 05/17/2025 Orders Only [facility] [address] [place] [address] Antione Segura PA-C Chronic obstructive pulmonary disease, unspecified COPD type (Primary Dx) 05/17/2025 Telephone [facility] [address] [place] [address] Antione Segura PA-C Pre-op Consent 05/16/2025 11:20 AM EST Office Visit [facility] [address] [place] [address] Antione Segura PA-C Chronic obstructive pulmonary disease, unspecified COPD type (Primary Dx); Nonrheumatic aortic valve stenosis; Acute on chronic hypoxic respiratory failure 05/16/2025 Home Care Visit [facility] [address] [place] [address] Lelo Roa RN CASE COMMUNICATION 05/14/2025 Orders Only [facility] [address] [place] [address] Homehealth, Raeann Cooley MD 05/13/2025 Home Care Visit [facility] [address] [place] [address] Maritza Calix, RN CASE COMMUNICATION 05/12/2025 Home Care Visit [facility] [address] [place] [address] Maritza Calix, RN CASE COMMUNICATION 05/10/2025 Home Care Visit [facility] [address] [place], [place] [phone] Krista Iniguez, HUA CASE COMMUNICATION 05/07/2025 Telephone [facility] [address] [place] [address] Antione Segura PA-C 05/07/2025 Refill [facility] [address] [place] [address] Juana Solis PA-C Medication Refill 05/07/2025 Telephone [facility] [address] [place] [address] Antione Segura PA-C 05/06/2025 Refill [facility] [address] [place] [address] Antione Segura PA-C Medication Refill 05/03/2025 Telephone [facility] [address] [place] [address] Antione Segura PA-C TCM Visit (Unable to schedule) 05/03/2025 Orders Only [facility] [address] [place] [address] Homehealth, Interface MD Lenora 05/03/2025 Lab Requisition [facility] [address] [place] [address] Nba Roberson MD Peripheral vascular disease, unspecified 04/30/2025 Episode Documentation Update [facility] [address] [place], [place] [phone] Deysi Hartmann 04/27/2025 Telephone [facility] Primary [facility] [address] [facility] [address] [place] [address] Vilma Velázquez Care Coordination 04/27/2025 Home Care Visit [facility] [address] [place], [place] [phone] Shakira Hand RN SN NON OASIS DISCHARGE NON VISIT/TELEPHONE 04/26/2025 Lab Requisition [facility] [address] [place] [phone] Rosario Rodriguez NP Illness, unspecified 04/25/2025 2:00 AM EST Home Care Visit [facility] [address] [place] [phone] Shakira Hand, HUA SN OASIS TRANSFER 04/25/2025 Telephone [facility] [address] [place], [place] [phone] Antione Segura PA-C CT Neck 04/23/2025 Orders Only [facility] [address] [place], [place] [phone] Provider, MD Omar 04/20/2025 1:30 PM EST Home Care Visit [facility] [address] [place] [phone] Shakira Hand RN SN HOME VISIT 04/20/2025 Home Care Visit [facility] [address] [place] [phone] Yane Lanza, PT PT EVALUATION 04/19/2025 10:30 AM EST Home Care Visit [facility] [address] [place] [phone] Shakira Hand, HUA SN HOME VISIT 04/19/2025 Telephone [facility] [address] [place], [place] [phone] Elida Lindquist RN Swelling 04/19/2025 Refill [facility] [address] [place], [place] [phone] Sirisha Huertas, AGA Medication Refill 04/18/2025 12:00 PM EST Home Care Visit [facility] [address] [place] [phone] Shakira Hand, HUA SN OASIS RESUMPTION OF CARE (VERONIKA) 04/18/2025 Home Care Visit [facility] [address] [place] [phone] Viktoriya Taylor, RN TELEPHONE ENCOUNTER 04/16/2025 Orders Only [facility] [address] [place], [place] [phone] Provider, MD Omar 04/15/2025 Home Health Resumption of Care Planning [facility] [address] [place], [place] [phone] Dennise Rodriguez, HUA 04/13/2025 Telephone [facility] [address] [place] [address] Vilma Velázquez Care Coordination 04/12/2025 3:00 PM EDT Home Care Visit [facility] [address] [place], [place] [phone] Thao Kennedy CASE COMMUNICATION 04/12/2025 Home Care Visit [facility] [address] [place], [place] [phone] Shakira Hand, HUA SN OASIS TRANSFER 04/12/2025 Documentation [facility] [address] [place], [place] [phone] Antione Segura PA-C 04/12/2025 Orders Only [facility] [address] [place], [place] [phone] Provider, MD Omar 04/11/2025 Refill [facility] [address] [place] [address] Elida Lindquist, HUA TCM Visit 04/10/2025 Telephone [facility] [address] [place], [place] [phone] Antione Segura PA-C TCM Visit (Needs appt ) 04/10/2025 Telephone [facility] [address] [place], [place] [phone] Antione Segura PA-C Forms & Paperwork 04/09/2025 3:00 PM EDT Home Care Visit [facility] [address] [place], [place] [phone] Thao Kennedy TORPEDO SPECIALIST HOME VISIT 04/09/2025 Telephone [facility] [address] [place] [address] Janay Naidu Care Coordination 04/09/2025 Orders Only [facility] [address] [place] [address] ProviderOmar MD 04/07/2025 Refill [facility] [address] [place] [address] Antione Segura PA-C Medication Refill 04/06/2025 11:45 AM EDT - 04/06/2025 11:59 PM EDT Hospital Encounter [facility], [facility] [address] [place] [address] Antione Segura PA-C Discharge Disposition: Home or Self Care 04/06/2025 Orders Only [facility] [address] [place] [address] Antione Segura PA-C Abnormal finding on imaging (Primary Dx); Allergic reaction to contrast material, subsequent encounter 04/05/2025 3:00 PM EDT Home Care Visit [facility] [address] [place], [place] [phone] Thao Kennedy TORPEDO SPECIALIST HOME VISIT 04/05/2025 2:00 AM EDT Home Care Visit [facility] [address] [place], [place] [phone] Rich Mariscal LPN LPN HOME VISIT 04/05/2025 Episode Documentation Update [facility] [address] [place], [place] [phone] Margy Rubalcava 04/04/2025 Episode Documentation Update [facility] [address] [place] [address] Margy Rubalcava 04/03/2025 Episode Documentation Update [facility] [address] [place] [phone] Margy Rubalcava 04/02/2025 2:00 PM EDT Home Care Visit [facility] [address] [place] [phone] Thao Kennedy L TORPEDO SPECIALIST HOME VISIT 04/02/2025 Episode Documentation Update [facility] [address] [place] [phone] Margy Rubalcava 03/30/2025 Episode Documentation Update [facility] [address] [place] [phone] Margy Rubalcava 03/29/2025 3:00 PM EDT Home Care Visit [facility] [address] [place], [place] [phone] Thao Kennedy L TORPEDO SPECIALIST HOME VISIT 03/29/2025 11:30 AM EDT Home Care Visit [facility] [address] [place] [phone] Shakira Hand RN SN HOME VISIT 03/29/2025 Telephone [facility] [address] [place], [place] [phone] Janay Naidu Care Coordination 03/29/2025 Episode Documentation Update [facility] [address] [place] [address] Margy Rubalcava 03/28/2025 2:32 PM EDT - 03/28/2025 11:59 PM EDT Hospital Encounter [facility], Ct Scan - [facility] [address] [place] [address] [phone] Antione Segura PA-C Discharge Disposition: Home or Self Care 03/28/2025 9:40 AM EDT Office Visit [facility] [address] [place] [address] Antione Segura PA-C Acute right-sided low back pain without sciatica (Primary Dx); Depression, unspecified depression type; Dizziness and giddiness; Acute on chronic hypoxic respiratory failure 03/28/2025 Telephone [facility] [address] [place] [address] Evangelista Janay Care Coordination 03/28/2025 Telephone [facility] [address] [place] [address] Antione Segura PA-C Results 03/28/2025 Procedure Pass [facility], Ct Scan - [address] [address] 03/28/2025 Episode [facility] [address] [place] [address] Margy Rubalcava 03/27/2025 [facility] [address] [place] [address] Thao Kennedy TORPEDO SPECIALIST HOME VISIT 03/21/2025 1:30 PM EDT [facility] [address] [place] [address] Shakira Hand, HUA SN OASIS RESUMPTION OF CARE (VERONIKA) 03/21/2025 Documentation [facility] [address] [place] [address] Antione Segura PA-C 03/20/2025 Home Health Resumption of Care Planning [facility] [address] [place] [address] Koki Simons RN 03/16/2025 4:30 AM EDT [facility] [address] [place] [address] Shakira Hand RN SN OASIS TRANSFER 03/15/2025 Refill [facility] [address] [place] [address] Antione Segura PA-C Medication Refill 03/13/2025 Orders Only [facility] [address] [place] [address] Provider, MD Omar 03/08/2025 1:00 AM EDT Home Care Visit [facility] [address] [place], [place] [phone] Rich Mariscal LPN BULL GANG SUPERVISOR HOME VISIT 03/08/2025 Refill [facility] [address] [place] [address] Antione Segura PA-C Medication Refill 03/08/2025 Refill [facility] [address] [place] [address] Pete Hicks PA-C Medication Refill 03/08/2025 Refill [facility] [address] [place], [place] [phone] Antione Segura PA-C Medication Refill 03/06/2025 Episode Documentation Update [facility] [address] [place] [phone] Bratic, Stanislavka 03/05/2025 Episode Documentation Update [facility] [address] [place] [address] Bratic, Stanislavka 03/04/2025 Episode Documentation Update [facility] [address] [place], [place] [phone] Bratic, Stanislavka 03/02/2025 Episode Documentation Update [facility] [address] [place], [place] [phone] Bratic, Stanislavka 03/02/2025 Telephone [facility] [address] [place], [place] [phone] Antione Segura PA-C [facility] referral request 03/01/2025 11:00 AM EDT Home Care Visit [facility] [address] [place], [place] [phone] Rich Mariscal LPN LPN HOME VISIT 03/01/2025 Refill [facility] [address] [place] [address] Vania Matamoros MA 02/27/2025 Refill [facility] [address] [facility] [place] [address] Antione Segura, PARamonC Medication Refill from Last 3 Months Immunizations Immunization Administration Dates Next Due COVID-19 (Pre-04/05) Pfizer Vaccine, mRNA, PF 10/02/2020,09/11/2020 INFLUENZA, SPLIT VIRUS, TRIVALENT PF 04/12/2025, 02/29/2024,06/20/2015 Influenza Quadrivalent Prese rvative Free IM 07/29/2023,02/27/2022,05/06/2021,02/21,04/01/2018 PPD Test 08/17/2018,12/23/2015,11/13/2014 Pneumococcal conjugate PCV20 02/29/2024 Pneumococcal polysaccharide PPSV23 02/22/2020 RSV Vaccine (bivalent) 04/29/2025 Td (adult) 5 Lf Tetanus Toxo id, [...] high school, GED, job training, learning the Fijian language, technical skills, or developing parenting skills)? [...] Pulse 88 05/29/2025 8:05 AM EST Temperature 36.3 C (97.4 F) 05/28/2025 1:13 PM EST Respiratory Rate 29 05/29/2025 8:05 AM EST Oxygen Saturation 97% 05/29/2025 8:05 AM EST 3L Inhaled Oxygen Concentration - - Weight 100.2 kg (221 lb) 05/29/2025 8:05 AM EST Height 156.2 cm (5' 1.5 ) 05/29/2025 8:05 AM EST Body Mass Index 41.09 05/29/2025 8:05 AM EST Plan of Treatment Upcoming Encounters Date Type Department Care Team (Late st Contact Info) Description 05/31/2025 2:00 AM EST Appointment [facility] [address] [place] [phone] Shakira Hand RN [address] [place] [address] [email or web address] 05/31/2025 11:30 AM EST Appointment [facility] [address] [place] [address] Raisa Bautista [address] [place] [phone] [email or web address] 06/04/2025 12:30 AM EST Appointment [facility] [address] [place] [address] Shakira Hand RN [address] [place] [address] [email or web address] 06/05/2025 1:00 AM EST Appointment [facility] [address] [place] [phone] Raisa Bautista [address] [place] [address] [email or web address] 06/06/2025 12:30 AM EST Appointment [facility] [address] [place] [phone] Raisa Bautista [address] [place] [address] [email or web address] 06/12/2025 1:30 AM EST Appointment [facility] [address] [place] [phone] Shakira Hand RN [address] [place] [address] [email or web address] 06/12/2025 2:00 AM EST Appointment [facility] [address] [place] [address] Raisa Bautista [address] [place] [phone] [email or web address] 06/13/2025 2:00 PM EST Appointment [facility] [address] [place] [phone] Antione Segura PA-C [address] [place] [phone] [email or web address] 06/14/2025 1:00 AM EST Appointment [facility] [address] [place] [address] Raisa Bautista [address] [place] [address] [email or web address] 06/19/2025 1:00 AM EST Appointment [facility] [address] [place] [phone] Raisa Bautista [address] [place] [address] [email or web address] 06/19/2025 2:00 AM EST Appointment [facility] [address] [place] [phone] Shakira Hand RN [address] [place] [address] 06/21/2025 1:00 AM EST Appointment [facility] [address] [place] [phone] Raisa Bautista [address] [place] [address] 06/25/2025 9:30 AM EST Telemedicine [facility] [address] [place] [phone] Jn Cardoza MD [address] [place] [address], 2[address] [place] [address] 06/26/2025 1:00 AM EST Appointment [facility] [address] [place] [phone] Raisa Bautista [address] [place] [phone] 06/27/2025 Appointment [facility] [address] [place] [phone] Shakira Hand RN [address] [place] [address] 06/28/2025 1:00 AM EST Appointment [facility] [address] [place] [phone] Raisa Bautista [address] [place] [address] 07/03/2025 1:00 AM EST Appointment [facility] [address] [place] [phone] Lily Raisa M [address] [place] [address] 07/03/2025 1:00 PM EST Office Visit [facility] [address] [facility] [place] [address] Celso Akins MD [address] [place] [address] 07/04/2025 Appointment [facility] [address] [place], [place] [phone] Shakira Hand RN [address] [place] [address] 07/04/2025 11:20 AM EST Office Visit [facility] [address] [place] [address] Antione Segura PA-C [address] [place] [address] [email or web address] 07/05/2025 1:00 AM EST Appointment [facility] [address] [place], [place] [phone] Lily Raisa M [address] [place] [address] 07/10/2025 1:00 AM EST Appointment [facility] [address] [place], [place] [phone] Raisa Bautista [address] [place] [address] 07/11/2025 Appointment [facility] [address] [place], [place] [phone] Shakira Hand RN [address] [place] [address] [email or web address] 08/21/2025 10:30 AM EDT Appointment [facility] [address] [place] [address] Antione Segura PA-C [address] [place] [address] [email or web address] Health Maintenance Due Date Last Done Comments COLOGUARD 01/09/2008 FIT TEST 01/09/2008 FOBT 01/09/2008 SIGMOIDOSCOPY 01/09/2008 VIRTUAL COLONOSCOPY 01/09/2008 ZOSTER VACCINES (1 of 2) 2013 PAP SMEAR 02/21/2023 02/22/2020, 02/12, 08/27/2014 COLONOSCOPY 12/05/2023 12/04/2013, 12/04/2013 COLORECTAL CANCER SCREENING 12/05/2023 Adult Td,Tdap Booster 12/30/2023 12/29/2013 BLOOD PRESSURE 11/27/2025 05/29/2025 LUNG CANCER SCREENING (LDCT Only) 12/21/2025 12/21/2024, 08/27/2022, 09/05/2021, Additional history exists CREATININE LEVEL 05/03/2026 05/03/2025, , 04/11/2025, Additional history exists POTASSIUM LEVEL 05/03/2026 05/03/2025, 04/14, 04/11/2025, Additional history exists DEPRESSION SCREENING 05/11/2026 05/11/2025, 05/11/20 SMOKING Hx and SMOKELESS TOBACCO SCREENING 05/29/2026 05/29/2025 LIPID PANEL 08/22/2026 08/22/2021, 08/12, 02/26/2020, Additional history exists MAMMOGRAM 02/14/2027 02/14/2025, 05/14, 09/01/2021, Additional history exists SCREENING FOR DIABETES 05/03/2028 05/03/2025, 2021 HEPATITIS C SCREENING Completed 05/25/2019, 019 HIV ONE-TIME SCREENING (18-65 YEARS) Completed 05/25/2019 PNEUMOCOCCAL VACCINES (50+ years) Completed 02/29/2024, 02/22/2020 INFLUENZA VACCINE Completed 04/12/2025, , 07/29/2023, Additional history exists RSV VACCINE Completed 04/29/2025 COVID-19 VACCINE Completed 04/30/2025, 09/2021, 10/02/2020, Additional history exists HEPATITIS A VACCINES Aged [...] Name Priority Date/Time Associated Diagnosis Comments OUTSIDE ECHO Routine 05/14/2025 2:05 PM EST COMPREHENSIVE METABOLIC PANEL (CMP) Today 05/03/2025 4:40 [...] 03/06/2025 OUTSIDE SERUM CREATININE LEVEL Routine 03/06/2025 HM MAMMOGRAPHY Routine 02/14/2025 2:39 PM EDT LDCT PROCEDURE FOR RESULT ENTRY ONLY Routine 12/21/2024 LIPID PANEL Routine 08/22/2021 8:13 AM EST Mixed hyperlipidemia PAP TEST Routine 02/22/2020 12:00 AM EDT HEPATITIS C ANTIBODY, QUALITATIVE Routine 05/25/2019 10:24 AM EST Need for hepatitis C screening test COLONOSCOPY FOR RESULT ENTRY ONLY Routine 12/04/2013 from Last 3 Months or Most Recently Relevant to Health Maintenance Results * Outside Echo Report Only (05/14/2025 2:05 PM EST) us Historical Provider MD SHAH ECHO ORDERABLES Final Result * (ABNORMAL) Comprehensive Metabolic Panel (CMP) (05/03/2025 4:40 AM EST) Only the most recent of2 resultswithin the time period is included. Sodium 140 136 - 145 mmol/L 05/03/2025 7:15 AM EST [facility] Potassium 3.7 3.4 - 5.1 mmol/L 05/03/2025 7:15 AM EST [facility] Chloride 98 98 - 107 mmol/L 05/03/2025 7:15 AM [facility] CO2 33(H) 20 - 31 mmol/L 05/03/2025 7:15 AM [facility] Anion Gap 9 3 - 17 mmol/L 05/03/2025 7:15 AM [facility] BUN 10 6 - 23 mg/dL 05/03/2025 7:15 AM [facility] Creatinine 0.50 0.50 - 1.00 mg/dL 05/03/2025 7:15 AM [facility] eGFR 106 >59 mL/min/1.7 3m2 05/03/2025 7:15 AM [facility] Comment:Estimated glomerular filtration rate calculated using the CKD-EPI refit equation. Glucose 124(H) 70 - 99 mg/dL 05/03/2025 7:15 AM [facility] Calcium 9.3 8.5 - 10.5 mg/dL 05/03/2025 7:15 AM [facility] AST 17 <33 U/L 05/03/2025 7:15 AM [facility] ALT 14 <34 U/L 05/03/2025 7:15 AM [facility] Alkaline Phosphatase 60 40 - 130 U/L 05/03/2025 7:15 AM [facility] Bilirubin, Total <0.2 0.0 - 1.2 mg/dL 05/03/2025 7:15 AM [facility] Total Protein 6.2(L) 6.4 - 8.3 g/dL 05/03/2025 7:15 AM [facility] Albumin 3.6 3.5 - 5.2 g/dL 05/03/2025 7:15 AM [facility] Globulin 2.6 1.9 - 4.1 g/dL 05/03/2025 7:15 AM [facility] Blood (Blood) 05/03/2025 4:4 0 AM EST 05/03/2025 6:06 AM EST us Nba Roberson MD LAB BLOOD BKR ORDERABLES Final R esult [facility] [address] [place] [address] * (ABNORMAL) CBC (05/03/2025 4:40 AM EST) Only the most recent of2 resultswithin the time period is included. WBC 8.32 4.00 - 11.00 K/uL 05/03/2025 6:44 AM [facility] RBC 3.33(L) 4.00 - 5.20 M/uL 05/03/2025 6:44 AM [facility] Hemoglobin 10.1(L) 12.0 - 16.0 g/dL 05/03/2025 6:44 AM [facility] Hematocrit 32.5(L) 36.0 - 46.0 % 05/03/2025 6:44 AM [facility] MCV 97.6 80.0 - 100.0 fL 05/03/2025 6:44 AM [facility] MCH 30.3 27.0 - 31.0 pg 05/03/2025 6:44 AM [facility] MCHC 31.1(L) 32.0 - 36.0 g/dL 05/03/2025 6:44 AM [facility] PLT 356 150 - 450 K/uL 05/03/2025 6:44 AM [facility] MPV 9.5 8.4 - 12.0 fL 05/03/2025 6:44 AM [facility] RDW-CV 15.5(H) 11.5 - 14.5 % 05/03/2025 6:44 AM [facility] Absolute NRBC 0.02(H) <=0.00 K cells/uL 05/03/2025 6:44 AM [facility] NRBC 0.2(H) <=0.0 /100 WBCs 05/03/2025 6:44 AM [facility] Blood (Blood) 05/03/2025 4:4 0 AM EST 05/03/2025 6:06 AM EST us Nba Roberson MD LAB BLOOD BKR ORDERABLES Final R esult [facility] [address] [place] [address] * Outside Imaging Report Only (04/20/2025 8:10 AM EST) Result [facility] Provider IMG XR CHEST Final Res ult * Outside XR??Chest Report Only (04/20/2025 7:44 AM EST) Result [facility] Provider IMG XR CHEST Final Res ult * Outside Imaging Report Only (04/16/2025 7:39 AM EST) Result [facility] IMG XR CHEST Final Res ult * Outside XR??Chest Report Only (04/11/2025 8:35 AM EDT) Result [facility] IMG XR CHEST Final Res ult * Outside Potassium Level (04/11/2025) Only the most recent of2 resultswithin the time period is included. Potassium level - External 4.0 3.4 - 5.0 mmol/L Result [facility] LAB BLOOD ORDERABLES Mariya l Result * (ABNORMAL) Outside Serum Creatinine Level (04/11/2025) Only the most recent of2 resultswithin the time period is included. Creatinine, serum - External 0.68(A) 0.8 - 1.3 mg/dL Result [facility] LAB BLOOD ORDERABLES Mariya l Result * Outside ALT Level (04/11/2025) Only the most recent of2 resultswithin the time period is included. ALT - External 20 5 - 30 U/L Result [facility] LAB BLOOD ORDERABLES Mariya l Result * Outside Lab (04/08/2025 1:09 PM EDT) Result [facility] LAB BLOOD BKR ORDERABLES Final Result * Outside Imaging Report Only (04/08/2025 7:50 AM EDT) us Historical Provider MD DAWKINS XR CHEST Final Res ult * US Soft Tissues of Head and Neck (Salivary Gland) (04/06/2025 12:20 PM EDT) MGB IMG RECOMMENDATION COMMENT parotid lesion [facility] Anatomical Region Laterality Modality Neck, Head [...] clinician's provided indication for this examination in [facility]: Parotid region mass TECHNIQUE: Ultrasound of the [...] clinician's provided indication for this examination in [facility]:Parotid region mass TECHNIQUE: Ultrasound of the Salivary [...] CONTRAST (03/28/2025 2:46 PM EDT) 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 No acute intracranial findings. No evidence of acute infarct or hemorrhage. 2. Left parotid gland nodular density. Follow-up parotid ultrasound or neck CT with contrast recommended. A clinically significant result was initiated on 03/28/2025 3:15 PM, Message ID [id number]. Narrative 03/28/2025 3:[address] HEAD WITHOUT CONTRAST Referring clinician's provided indication for this examination in [facility]: * Dizziness, persistent/recurrent, cardiac or [...] clinician's provided indication for this examination in [facility]: *Dizziness, persistent/recurrent, cardiac or vascular [...] was initiated on 03/28/2025 3:15 PM,Message ID [id number]. Antione Segura PA-C IMG CT HEAD/NECK Final Result * Outside XR??Chest Report Only (03/13/2025 8:23 AM EDT) Historical Provider MD DAWKINS XR CHEST Final Res ult * MAMMOGRAPHY FOR RESULT ENTRY ONLY (02/14/2025 2:39 PM EDT) Historical Provider HEALTH MAINTENANCE Final Result * HM LDCT PROCEDURE FOR RESULT ENTRY ONLY (12/21/2024) LDCT - External CTA chest, juanito pulm nodules us Historical Provider HEALTH MAINTENANCE Final Result * (ABNORMAL) Lipid panel (08/22/2021 8:13 AM EST) HDL 54 mg/dL [facility] Comment: Interpretation <40 mg/dL: Low HDL cholesterol (major risk factor for CHD) Greater than or equal to 60 mg/dL: High HDL cholesterol ( negative risk factor for CHD) HDL - cholesterol is affected by a number of factors, e.g. smoking, excerise, hormones, sex and age. CHOLESTEROL 237 0 - 240 mg/dL [facility] TRIGLYCERIDES 201(H) 30 - 160 mg/dL [facility] LDL 143(H) 50 - 129 mg/dL [facility] Comment: LDL levels in terms of risk for coronary heart disease: <100 mg/dL: Optimal 100-129 mg/dL: Near or above optimal 130-159 mg/dL: Borderline high 160-189 mg/dL: High >190 mg/dL: Very High CARDIAC RISK RATIO 4.4 3.3 - 4.4 C [facility] Blood 08/22/2021 8:13 AM EST 08/22/2021 8:17 AM EST Jennifer Duke NP LAB BLOOD BKR ORDERABLES Final Result [address] [address] * Pap Smear (02/22/2020 12:00 AM EDT) 02/22/2020 02/23/2020 8:2 1 AM EDT Narrative SEE NARRATIVE - 02/27/2020 11:20 AM EDT [address] [address] Bird Keeper: Perla Luis MD [facility] Cytology Report FINAL DIAGNOSIS A. PAP SMEAR [...] 52, 56, 58, 59, 66, 68) by [employer] HR-HPV analysis. Clinical correlation is advised. This HPV test was performed at [facility], [address] [place] [address]. This test has been FDA approved for [facility] cervical cytology specimens. The accuracy and precision of this test for all other specimen sources has been verified in the Cytopathology Laboratory of the [facility] and has not been cleared or approved by the U.S. Food and Drug Administration. Clinical correlation is advised. CLINICAL HISTORY Date of Last Menstrual Period: 2009 Menstrual History: Post Menopausal Other Clinical Conditions: Screening Pap SPECIMEN SOURCE A: PAP SMEAR (SUREPATH) CE Patient Name: MAYRA CONSTANTINO : 1965 (Age: 55) Sex: F Institution: [facility] Location: [facility] Date of Collection: 02/22/2020 Date of Reported: 02/27/2020 11:20 Results to: Jennifer Duke MSN, BSN Jennifer Duke ADULT SECONDARY EDUCATION INSTRUCTOR CYTOLOGY ORDERABLES Final Resul t SEE NARRATIVE * Hepatitis C antibody, qualitative (05/25/2019 10:24 AM EST) HCV NON-REACTIV E NON-REACTI VE [facility] Blood 05/25/2019 10:2 4 AM EST 05/25/2019 10:26 AM EST us Jennifer Duke NP LAB BLOOD BKR ORDERABLES Final Result [facility] [address] [place] [address] * COLONOSCOPY FOR RESULT ENTRY ONLY (12/04/2013) Colonoscopy repeat 10 yrs us Historical Provider MD HEALTH MAINTENANCE Final Result from Last 3 Months or Most Recently Relevant to Health Maintenance Insurance [facility] MEDICARE A [facility] MEDIC[facility] [place] [id number] [facility] MED[facility] A Member Subscriber Plan / Payer (Ef fective 2020-Present) Name:Mayra Constantino Member ID:[id number] Relation to Subscriber:Self Name:Mayra Constantino Subscriber ID:[id number] Payer ID:[id number] Group ID:Not on file Type:Medicare Address: [facility] [employer] [facility] [address] [phone] [facility] MED[facility] A Marielle [place], [place] [facility] Marielle [place] [facility] MEDIC[facility] A Advance Directives For more information, please contact: [phone] (9AM - 5PM [facility], Wednesday-Wednesday) Documents on File Type Date Recorded Patient Scrap Baler Expl anation Healthcare Proxy 03/28/2025 [facility] Health Care Proxy Form scan 03/28/2025 [facility] 02/15/2025 [facility] * Full Code (Latest Code Status on File) Date Activated Date Inactivated Comments 02/15/2025 9:52 AM Question Answer Comments Code Status Confirmed With: Patient Care Teams Professional Application Designer Relationship Specialty Start Date End Date Antione Segura PA-C [address] [place] [address] [email or web address] PCP - General Physician [employer] 10/12/24 Jn Cardoza MD [address] [place] [address], [address] [place] [address] [email or web address] Neurology 02/03/24 Denys Henriquez MD [address] [place] [address] [place] [address] Pulmonary Disease 02/03/24 Rhett Cortez MD [address] [place] [address] Insurance Assigned Provider 01/20/25 Additional Source Comments The information contained in this document represents components of the legal health record. It is not the complete legal health record.[facility]
--- OUTSIDE RECORDS SUMMARY | 2025-05-29 20:09 | XMS_ITS | Data Portability ---
Author Organization [facility], Main Office Address [address] [facility], [facility] [address] [place] [address] Care Team Providers [employer] Name Role Phone CAREONE (NONO UNIT) OTHER [...] and Address Organization Details Recorded Time Obesity 824813037 Active 2024 Not Available [facility] 21:47:07 Obstructive sleep apnea syndrome 81480173 Active 2024 Not Available [facility] 21:46:21 Gastroesophag eal reflux disease without esophagitis 862166595 Active 2024 Not Available [facility] 21:46:03 Migraine 74561784 Active 2024 Not Available [facility] 21:46:00 Congestive heart failure 98609896 Active 2024 Not Available [facility] 21:36:02 Chronic pain 62913173 Active 2024 Not Available [facility] 21:38:53 Anxiety disorder 170785021 Active 2024 Not Available [facility] 07/03/202 5 21:45:57 Recurrent major depression 15784356 Active 2024 Not Available [facility] 5 21:45:58 Cervico-occip ital neuralgia 52776590 Active 2024 Not Available [facility] 5 21:46:02 Pulmonary emphysema 97225257 Active [address], [address], [place], [address] , [facility] 5 13:35:33 Chronic obstructive pulmonary disease 78333765 Active [address], [address], [place], [address] , [facility] 5 13:36:09 Essential hypertension 18049669 Active [address], [address], [place], [address] , [facility] 5 13:36:17 Mixed hyperlipidemi a 806790598 Active [address], [address], [place], [address] , [facility] 5 13:36:22 History of calculus of kidney 840568932 Active [address], [address], [place], [address] , [facility] 5 13:36:31 History of cerebrovascul ar accident 789063409 Active [address], [address], [place], [address] , [facility] 5 13:36:42 Moderate aortic valve stenosis 709617628 Active [address], [address], [place], [address] , [facility] 5 13:37:10 Trigeminal neuralgia 73338431 Active [address], [address], [place], [address] , [facility] 5 13:37:19 Cervico-occip ital neuralgia 57395907 Active [address], [address], [place], [address] , [facility] 5 13:37:27 Chronic pain syndrome 173812952 Active [address], [address], [place], [address] , [facility] 5 13:37:38 Mixed anxiety and depressive disorder 753504883 Active 2024 BUDDY LORD [address], [address], [place], [address] , [facility] 5 13:37:56 Urinary incontinence 313550949 Active [address], [address], [place], [address] , [facility] 5 13:38:03 Low blood pressure 09512068 Active [address], [address], [place], [address] , [facility] 5 13:43:22 Osteoporosis 37585052 Active 2024 BUDDY [address], [place], [address] , [facility] 5 13:55:15 Problem Notes None recorded. Procedures Surgical History Date Name Laterality Status Provider Name and Address Organization Details Recorded Time esophagogastroduodenoscopy completed BUDDY [facility] [address], [address], [place], [address], [facility] 5 13:38:59 biopsy of colon completed BUDDY [facility] [address], [address], [place], [address], [facility] 5 13:39:08 excision of lumbar intervertebral disc completed BUDDY LORD [address], [address], [place], [address], [facility] 5 13:39:47 ligation of fallopian tube completed BUDDY [facility] [address], [address], [place], [address], [facility] 5 13:40:01 operative procedure on shoulder completed BUDDY LORD [address] [place] [address], [address], [place], [address], [facility] 5 13:40:09 Imaging Results None recorded. Procedure Notes None recorded. Medical Equipment None Reported. Allergies Allergen ID Allergen Name Allergen Category Reaction Reaction Severity Criticality Documentation Date Start Date Code Code System Note Provider Name and Address Organization Details Recorded Time 94408 morphine medicatio n Not available Not available Not available 12/13/20242024 7052 RxMarlon Jacobo MD [address] [place] [address], [address], [place], [address], [facility] 5 16:31:18 03571 latex environme nt,medica tion Not available Not available Not available 12/13/20242024 44655 91 RxMarlon Jacobo MD [address] [place] [address], [address], [place], [address], [facility] 5 16:31:21 69855 Iodinated contrast media (substanc e) medicatio n hives Not available Not available 12/13/20242016 19027 2004 XU Jacobo MD [address] [place] [address], [address], [place], [address], [facility] 5 16:31:03 53906 adhesive tape environme nt,medica tion Not available Not available Not available 12/13/20242024 Not Available [facility] 5 14:22:57 58195 Latex (substanc e) environme nt,medica tion rash Not available low 12/18/20242016 73228 8007 XU Jacobo MD [address] [place] [address], [address], [place], [address], [facility] 5 16:31:06 84576 morphine sulfate medicatio n itching Not available Not available 12/18/20241999 60148 RxNorm Perla Jacobo MD [address], [address], [place], [address], [facility] 5 16:31:09 18825 procaine hydrochlo ride medicatio n other Not available Not available 12/18/20241999 72602 8 RxNorm Hives -karia saad Jacobo MD [address] [facility], [address], [place], [address], [facility] 5 16:31:12 Medications Name Sig [...] Available Not Available Not Avai lable Acid Linotype Operator (omeprazole ) 20 mg capsule,del ayed release [...] mass index (BMI) Body weight Oxygen saturation Systolic And Diastolic Provider Name and Address Organization Details Last Updated DateTime 5 70 /min 18 /min 97.5 [degF] 154.94 cm 39.5 kg/m2 26843.8 1 g 97 % 164/72 mm[Hg] Perla Jacobo MD [address] [facility], [address], [place], [address], [facility] 5 20:04:19 Social History Question Answer Notes LastModified by Organizat ion Details LastModified Time Tobacco Smoking Status Former Smoker smoked 3+ ppd Perla Jacobo MD [address] [facility], [address], [place], [address], [facility] 12/19/2024 20:36:29 Do You Have An [...] Do You Have A Medical Power Of Operator Vacuum? Yes Information not available 12/19/2024 What Was [...] Diagnosis SNOMED-CT Code Diagnosis ICD10 Code Diagnosis IMO Codes Diagnosis Note [id number] UBDDY Ugalde at [facility] on [address] [place] [address] 12/14/2024 12:53:39 12/18/2024 12:27:53 Chronic obstructive pulmonary disease 04481937 J44.9 392747615 budesonide 2mL Neb bidprednis one 40 mg qdalbutero l 9mcg 2 puffs prn z6rwpcncym natate 100mg tidcodeine -guaifenes in 10/100mg 10ml p0pqfiqgae pium-albut jose 3ml via neb q4h prnmucus DM 30-600 bidroflumi last 500 mcg qdmonitor respirator y status Chronic pain syndrome 37 5871888 G89.4 13654 lidocaine patch 4% qdbaclofen 20mg tidgabapen tin 300mg tidoxycodo ne 5mg bid prnmonitor patients pain level Gastroesop hageal reflux disease without esophagitis 994356942 K21.9 346150 omeprazole 20mg qdhyoscyam ine sulf 0.125mg q6h Essential hypertension 00765082 I10 74097 valsartan 40 mg qdaspirin 81 mg qdprazosin 2 mg qdverapami l 120mg bid Mixed anxi ety and depressive disorder 247263133 F41.9 F32.A 280535 aripiprazo le 5mg qdduloxeti ne 60mg bidlorazep am 1 mg qd prnmonitor moodpatien t will have a psych consult. Mixed hyperlipidemia 267 333290 E78.2 43842 atorvastat in 80mg qhs Migraine 72535245 G43.90 9 32745 butalbital -acetamino phen-caff 50-325-40 prnoxcarba zepine 300 mg tidmonitor patient for symptoms of migraine Osteoporosis 04116856 M8 1.8 68232 Calcium carbonate vit D3 600mg-5mcg qd 112563 Perla Jacobo MD [facility] [address] [place] [address] 12/19/2024 20:01:35 12/20/2024 11:17:41 Gastroesophageal reflux disease without esophagitis 027727468 K21.9 128436 No current sxs.Contin ue omeprazole 20 mg qd and hyoscyamin e sulf 0.125 mg q 6 hrs.F/U with PCP as outpt. Essential hypertension 66161258 I10 03254 SBP high this AM, but had bene ok prior to this.Raffi nue valsartan 40 mg qd, prazosin 2 mg qd, and verapamil 120 mg BID.MOnito r BP and labs as outpt. Mixed anxi ety and depressive disorder 666048105 F41.9 F32.A 543840 Mood a little anxious tonight, but pretty good.Raffi nue aripiprazo le 5 mg qd, duloxetine 60 mg BID, and lorazepam 1 mg qd prnF/U with PCP as outpt. Mixed hyperlipidemia 267 053441 E78.2 51453 Continue atorvastat in 80 mg qhs and ASA 81 mg qd.Monitor as outpt. Migraine 85035206 G43.90 9 34957 Continue meds as above and butalbital -acetamino phen-caff 50/325/40 mg BID prnF/U with PCP as outpt. Osteoporosis 56837285 M8 1.8 22739 Continue calcium carbonate and vit D3 600 mg/200 IU qdF/U as outpt. Pulmonary emphysema 8743 3001 J43.8 Z99.81 52637 Resp sxs almost back to baseline.W ill [...] pulmonolog ist as outpt. Trigeminal neuralgia 316 40267 G50.0 92406 Continue lidocaine patch 4% qd, baclofen 20 [...] Valenzuela Member ID Guarantor Name 12/20/2024 1 [place] [facility] [id number] Zulma Constantino [id number] Zulma Constantino Notes Date Note Type [...] depression, anxiety, urinary incontinence. She presented to [facility] for shortness of breath persisting for the last 24 hrs. Chest xray was negative for acute findings. Patient reported chest pressure and nausea which were resolved. Chest xray negative negative. symptoms due to COPD. Patient had been at [facility] on admission on 12/01 for significant hypotension [...] facility only provides lidocaine patches. BUDDY JOE [address] [place] [address], [address], [place], [address], [facility] [employer] 12/14/2024 14:39:08 12/19/2024 text/html This is a 59 yo woman on home O2 who is here for rehab after an acute hospitalization for acute on chronic hypoxic resp failure due to COPD and CHF exacerbations. She had initially beenhospitalized at [facility] from 12/01- for significant hypotension status post [...] PT or OT. She then returned to [facility] ED on 12/07with SOB and CP with [...] minimal shortness breath. Will be discharged to custodial facility for short-term rehab and 5 more [...] things without relief.She has a PCP and market asset protection manager to f/u with as outpt. We discuss prednisone taper as outpt and she wonders about getting a 2nd opinion in [place] about CHF/COPD issues.She also tell me she [...] occipital neuralgia, obesity, nephrolithiasis, and urinary incontinence. Perla Jacobo MD [address] [place] [address], [address], [place], [address], [facility] 12/19/2024 21:28:48 OBGyn Episode No OBEpisode recorded.
--- OUTSIDE RECORDS SUMMARY | 2025-05-29 20:10 | XMS_ITS | Encounter Summary ---
Author Organization [facility] Address [address] [place] [address] Phone Care Team Providers Care Associate Of Science In Nursing Name Role Phone Charbel Webber MD Unavailable Alverto Gandara MD Unavailable Maikel Rawls MD Unavailable Jennifer Duke ARMAMENT MECHANIC Primary Care Provider Lang Germain MD Primary Care Provider Jennifer Duke ARMAMENT MECHANIC Primary Care Provider Lang Germain MD Unavailable Lang Germain MD Primary Care Provider Jennifer Duke ARMAMENT MECHANIC Primary Care Provider Lang Germain MD Primary Care Provider Jennifer Duke ARMAMENT MECHANIC Primary Care Provider Lang Germain MD Primary Care Provider Jennifer Duke ARMAMENT MECHANIC Primary Care Provider Lang Germain MD Primary Care Provider [place], Jennifer L ARMAMENT MECHANIC Unavailable [phone] Jennifer Duke ARMAMENT MECHANIC Primary Care Provider [phone] Lang Germain MD Primary Care Provider [phone] Jennifer Duke ARMAMENT MECHANIC Primary Care Provider [phone] Sirisha Huertas SENIOR SUSTAINABILITY ADVISOR Primary Care Provider [phone] Jn Cardoza MD Unavailable Denys Henriquez MD Unavailable Liyah Patterson MD Unavailable Liyah Patterson MD Primary Care Provider [phone] Antione Segura PA-C Primary Care Provider [phone] Rhett Cortez MD Unavailable Encounter Details Date Type Department Care Team (Late st Contact Info) Description 09/13/2018 Procedure [facility], [address] [address] Social History Tobacco Use Types Packs/Day Years [...] Info) Description 05/31/2025 2:00 AM EST [facility] [address] [place] [address] Shakira Hand, HUA [address] [place] [address] 05/31/2025 11:30 AM EST Appointment [facility] [address] [place] [address] LilyRaisa M [address] [place] [address] 06/04/2025 12:30 AM EST Appointment [facility] [address] [place] [phone] Shakira Hand, RN [address] [place] [address] 06/05/2025 1:00 AM EST Appointment [facility] [address] [place] [phone] LilyRaisa M [address] [place] [address] 06/06/2025 12:30 AM EST Appointment [facility] [address] [place] [phone] LilyRaisa M [address] [place] [address] 06/12/2025 1:30 AM EST Appointment [facility] [address] [place] [phone] Shakira Hand, HUA [address] [place] [address] 06/12/2025 2:00 AM EST Appointment [facility] [address] [place] [address] LilyRaisa M [address] [place] [address] 06/13/2025 2:00 PM EST Appointment [facility] [address] [place] [address] Antione Segura PA-C [address] [place] [address] 06/14/2025 1:00 AM EST Appointment [facility] [address] [place] [address] Raisa Bautista [address] [place] [address] 06/19/2025 1:00 AM EST Appointment [facility] [address] [place] [address] LilyRaisa [address] [place] [address] 06/19/2025 2:00 AM EST Appointment [facility] [address] [place] [address] Shakira Hand RN [address] [place] [address] 06/21/2025 1:00 AM EST Appointment [facility] [address] [place] [address] Lily Raisa Lawler [address] [place] [address] 06/25/2025 9:30 AM EST Telemedicine [facility] [address] [place] [address] Jn Cardoza MD [address] [facility], [address]nd [place] [address] 06/26/2025 1:00 AM EST Appointment [facility] [address] [place] [address] LilyRaisa M [address] [place] [address] 06/27/2025 Appointment [facility] [address] [place] [address] Shakira Hand RN [address] [place] [address] 06/28/2025 1:00 AM EST Appointment [facility] [address] [place] [address] Raisa Bautista [address] [place] [address] 07/03/2025 1:00 AM EST Appointment [facility] [address] [place], [place] [phone] Lily Raisa M [address] [place] [address] 07/03/2025 1:00 PM EST Office Visit [facility] [address] [place] [address] Celso Akins MD [address] [place] [address] 07/04/2025 Appointment [facility] [address] [place] [address] Shakira Hand RN [address] [place] [address] 07/04/2025 11:20 AM EST Office Visit [facility] [address] [place] [address] Antione Segura PA-C [address] [place] [address] 07/05/2025 1:00 AM EST Appointment [facility] [address] [place], [place] [phone] Raisa Bautista [address] [place] [address] 07/10/2025 1:00 AM EST Appointment [facility] [address] [place] [address] Raisa Bautista [address] [place] [address] 07/11/2025 Appointment [facility] [address] [place] [address] Shakira Hand RN [address] [place] [address] 08/21/2025 10:30 AM EDT Appointment [facility] [address] [place] [address] Antione Segura PA-C [address] [place] [address] documented as of this encounter Visit Diagnoses Not on filedocumented in this encounter Additional Health Concerns Assessment Noted Time PHQ-2 Depression Total Score: 0 08/20/19 19 9:13 AM EST documented as of this encounter Care Teams Associate Of Science In Nursing Relationship Specialty Start Date End Date Jennifer Duke NP [address] [place] [address] PCP - General Family Medicine 09/08/18 09/14/18 Lang Germain MD [address] [place] [address] PCP - General Internal Medicine 09/15/18 10/02/18 Jennifer Duke NP [address] [place] [address] [email or web address] PCP - General Family Medicine 10/03/18 10/05/18 Lang Germain MD [address] [place] [address] [email or web address] PCP - General Internal Medicine 10/06/18 10/12/18 Jennifer Duke ARMAMENT MECHANIC [address] [place] [address] [email or web address] PCP - General Family Medicine 10/13/18 11/09/18 Lang Germain MD [address] [place] [address] [email or web address] PCP - General Internal Medicine 11/10/18 11/22/18 Jennifer Duke ARMAMENT MECHANIC [address] [place] [address] [email or web address] PCP - General Family Medicine 11/23/18 11/30/18 Lang Germain MD [address] [place] [address] [email or web address] PCP - General Internal Medicine 12/01/18 12/13/18 Jennifer Duke ARMAMENT MECHANIC [address] [place] [address] [email or web address] PCP - General Family Medicine 12/14/18 11/12/19 Lang Germain MD [address] [place] [address] [email or web address] PCP - General Internal Medicine 11/13/19 12/03/19 Jennifer Duke, ARMAMENT MECHANIC [address] [place] [address] [email or web address] PCP - General Family Medicine 12/04/19 01/23/20 Lang Germain MD [address] [place] [address] [email or web address] PCP - General Internal Medicine 01/24/20 01/30/20 Jennifer Duke, ARMAMENT MECHANIC [address] [place] [address] [email or web address] PCP - General Family Medicine 01/31/20 06/22/23 Sirisha Huertas FNP [address] [place] [address] [email or web address] PCP - General Nurse Practitioner 06/23/23 08/03/24 Liyah Patterson MD [address] [place] [address] [email or web address] PCP - General Family Medicine 08/04/24 10/11/24 Antione Segura PA-C [address] [place] [address] [email or web address] PCP - General Physician Speech Therapist 10/12/24 Charbel Webber MD [address] [place] [address], [address] [place] [address] [email or web address] Historical LMR Provider 04/01/17 0 Alverto Gandara MD [address] [address] Historical LMR Provider 04/01/17 12/03/19 Maikel Rawls MD [address] [address] [email or web address] Historical LMR Provider 04/01/17 12/03/19 Lang Germain MD [address] [place] [address] [email or web address] Insurance Assigned Provider 09/18/23 02/19/24 Jennifer Duke, [place] [address] [place] [address] [email or web address] Nurse Practitioner Family Medicine 11/13/19 01/30/20 Jn Cardoza MD [address] [address] Neurology 02/03/24 Denys Henriquez MD [address] [place] [address] [place] [address] Pulmonary Disease 02/03/24 Liyah Patterson MD [address] [facility] [address] [place] [address] Insurance Assigned Provider 02/19/24 01/20/25 Rhett Cortez MD [address] [place] [address] [email or web address] Insurance Assigned Provider 01/20/25 documented as of this encounter Additional Source Comments The information contained in this document represents components of the legal health record. It is not the complete legal health record.[facility]
--- OUTSIDE RECORDS SUMMARY | 2025-05-29 20:10 | XMS_ITS | Encounter Summary ---
Author Organization [facility] Address [address] [address] Phone Care Team Providers Care Booth Cashier Name Role Phone Jn Cardoza MD Unavailable Denys Henriquez MD Unavailable Antione eSgura PA-C Primary Care Provider Rhett Cortez MD Unavailable Encounter Details Date Type Department Care Team (Late st Contact Info) Description 03/20/2025 Home Health [facility] [address] [place] [address] Koki Simons RN [address] [place] [address] [email or web address] Social History Tobacco Use Types [...] EST Appointment [facility] [address] [place] [phone] Shakira Hand RN [address] [place] [address] [email or web address] 05/31/2025 11:30 AM EST Appointment [facility] [address] [place] [phone] Raisa Bautista [address] [place] [address] [email or web address] 06/04/2025 12:30 AM EST Appointment [facility] [address] [place] [phone] Shakira Hand RN [address] [place] [address] [email or web address] 06/05/2025 1:00 AM EST Appointment [facility] [address] [place] [phone] Raisa Bautista [address] [place] [address] [email or web address] 06/06/2025 12:30 AM EST Appointment [facility] [address] [place] [phone] Raisa Bautista [address] [place] [address] [email or web address] 06/12/2025 1:30 AM EST Appointment [facility] [address] [place] [phone] Shakira Hand, HUA [address] [place] [address] [email or web address] 06/12/2025 2:00 AM EST Appointment [facility] [address] [place] [phone] Lily Raisa M [address] [place] [address] [email or web address] 06/13/2025 2:00 PM EST Appointment [facility] [address] [place] [address] Antione Segura PA-C [address] [place] [address] [email or web address] 06/14/2025 1:00 AM EST Appointment [facility] [address] [place] [address] Lily, Raisa M [address] [place] [address] [email or web address] 06/19/2025 1:00 AM EST Appointment [facility] [address] [place] [phone] Lily Raisa M [address] [place] [address] [email or web address] 06/19/2025 2:00 AM EST Appointment [facility] [address] [place] [phone] Shakira Hand, HUA [address] [place] [address] [email or web address] 06/21/2025 1:00 AM EST Appointment [facility] [address] [place] [address] Lily Raisa M [address] [place] [address] 06/25/2025 9:30 AM EST Telemedicine [facility] [address] [place] [address] Jn Cardoza MD [address] [address] 06/26/2025 1:00 AM EST Appointment [facility] [address] [place] [phone] Raisa Bautista [address] [place] [address] 06/27/2025 Appointment [facility] [address] [place] [phone] Shakira Hand RN [address] [place] [phone] 06/28/2025 1:00 AM EST Appointment [facility] [address] [place] [address] Raisa Bautista [address] [place] [address] 07/03/2025 1:00 AM EST Appointment [facility] [address] [place] [address] Raisa Bautista [address] [place] [address] 07/03/2025 1:00 PM EST Office Visit [facility] [address] [place] [address] Celso Akins MD [address] [place] [address] [phone] 07/04/2025 Appointment [facility] [address] [place] [address] Shakira Hand RN [address] [place] [address] 07/04/2025 11:20 AM EST Office Visit [facility] 40 [place] [address] Antione Segura PA-C [address] [place] [address] 07/05/2025 1:00 AM EST Appointment [facility] [address] [place] [phone] Lily Raisa Nuris [address] [place] [address] 07/10/2025 1:00 AM EST Appointment [facility] [address] [place] [address] Raisa Bautista [address] [place] [address] 07/11/2025 Appointment [facility] [address] [place] [address] Shakira Hand RN [address] [place] [address] 08/21/2025 10:30 AM EDT Appointment [facility] [address] [place] [address] Antione Segura PA-C [address] [place] [address] documented as of this encounter Visit Diagnoses Not on filedocumented in this encounter Additional Health Concerns Assessment Noted Time PHQ-9 Depression Total Score: 15 025 9:44 AM EDT PHQ-2 Depression Total Score: 4 02/01/20 25 9:44 AM EDT documented as of this encounter Care Teams Booth Cashier Relationship Specialty Start Date End Date Antione Segura PA-C [address] [place] [address] PCP - General Physician Video Recorder Mechanic 10/12/24 Jn Cardoza MD 22 [facility], 2nd [place] [address] Neurology 02/03/24 Denys Henriquez MD [address] [place] [address] [place] [address] Pulmonary Disease 02/03/24 Rhett Cortez MD [address] [place] [address] Insurance Assigned Provider 01/20/25 documented as of this encounter Additional Source Comments The information contained in this document represents components of the legal health record. It is not the complete legal health record.[facility]
--- OUTSIDE RECORDS SUMMARY | 2025-05-29 20:10 | XMS_ITS | Encounter Summary ---
Author Organization [facility] Address [address] [address] Phone Care Team Providers Care Road Advisor Name Role Phone Jn Cardoza MD Unavailable Denys Henriquez MD Unavailable Liyah Patterson MD Unavailable Antione Segura-C Primary Care Provider [phone] Rhett Cortez MD Unavailable Encounter Details Date Type Department Care Team (Late st Contact Info) Description 12/06/2024 Home Health Resumption of Care Planning [facility] [address] [place] [address] Diana Torres, RN [address] [place] [address] [email or web address] Social History Tobacco Use Types [...] Description 05/31/2025 2:00 AM EST Appointment [facility] [address] [place] [phone] Shakira Hand RN [address] [place] [address] [email or web address] 05/31/2025 11:30 AM EST Appointment [facility] [address] [place] [phone] Raisa Bautista [address] [place] [address] [email or web address] 06/04/2025 12:30 AM EST Appointment [facility] [address] [place] [phone] Shakira Hand RN [address] [place] [address] [email or web address] 06/05/2025 1:00 AM EST Appointment [facility] [address] [place] [phone] Raisa Bautista [address] [place] [address] [email or web address] 06/06/2025 12:30 AM EST Appointment [facility] [address] [place] [phone] Raisa Bautista [address] [place] [address] [email or web address] 06/12/2025 1:30 AM EST Appointment [facility] [address] [place] [phone] Shakira Hand RN [address] [place] [address] [email or web address] 06/12/2025 2:00 AM EST Appointment [facility] [address] [place] [phone] Raisa Bautista [address] [place] [address] [email or web address] 06/13/2025 2:00 PM EST Appointment [facility] [address] [place] [address] Antione Segura PA-C [address] [place] [address] [email or web address] 06/14/2025 1:00 AM EST Appointment [facility] [address] [place] [address] Raisa Bautista M [address] [place] [address] [email or web address] 06/19/2025 1:00 AM EST Appointment [facility] [address] [place] [address] Raisa Bautista M [address] [place] [address] [email or web address] 06/19/2025 2:00 AM EST Appointment [facility] [address] [place] [phone] Shakira Hand RN [address] [place] [address] [email or web address] 06/21/2025 1:00 AM EST Appointment [facility] [address] [place] [address] Raisa Bautista [address] [place] [address] 06/25/2025 9:30 AM EST Telemedicine [facility] [address] [place] [address] Jn Cardoza MD [address] [place] [address] 06/26/2025 1:00 AM EST Appointment [facility] [address] [place] [phone] LilyRaisa [address] [place] [address] 06/27/2025 Appointment [facility] [address] [place] [phone] Shakira Hand RN [address] [place] [address] 06/28/2025 1:00 AM EST Appointment [facility] [address] [place] [address] Raisa Bautista [address] [place] [address] 07/03/2025 1:00 AM EST Appointment [facility] [address] [place] [address] LilyRaisa mckeon [address] [place] [address] 07/03/2025 1:00 PM EST Office Visit [facility] Pulmonology, All[facility] [address] [place] [address] Celso Akins MD [address] [place] [phone] 07/04/2025 Appointment [facility] [address] [place] [address] Shakira Hand, HUA [address] [place] [address] 07/04/2025 11:20 AM EST Office Visit [facility] 40 [place] [address] Antione Segura PA-C [address] [place] [address] 07/05/2025 1:00 AM EST Appointment [facility] [address] [place] [address] Lily Raisa M [address] [place] [address] 07/10/2025 1:00 AM EST Appointment [facility] [address] [place] [address] Lily, Raisa M [address] [place] [address] 07/11/2025 Appointment [facility] [address] [place] [address] Shakira Hand, HUA [address] [place] [address] 08/21/2025 10:30 AM EDT Appointment [facility] [address] [place] [address] Antione Segura PA-C [address] [place] [address] documented as of this encounter Visit Diagnoses Not on filedocumented in this encounter Additional Health Concerns Assessment Noted Time PHQ-9 Depression Total Score: 21 025 12:31 PM EDT PHQ-2 Depression Total Score: 6 10/13/19 25 12:31 PM EDT documented as of this encounter Care Teams Road Advisor Relationship Specialty Start Date End Date Antione Segura PA-C [address] [place] [address] PCP - General Physician Patient Relations Director 10/12/24 Jn Cardoza MD 22 [facility], 2nd [place] [address] Neurology 02/03/24 Denys Henriquez MD [address] [place] [address] [place] [address] Pulmonary Disease 02/03/24 Liyah Patterson MD 15 [facility] Subhash. [address] [place] [address] [email or web address] Insurance Assigned Provider 02/19/24 01/20/25 Rhett Cortez MD 40 [place] [address] Insurance Assigned Provider 01/20/25 documented as of this encounter Additional Source Comments The information contained in this document represents components of the legal health record. It is not the complete legal health record.[facility]
--- OUTSIDE RECORDS SUMMARY | 2025-05-29 20:10 | XMS_ITS | Encounter Summary ---
Author Organization [facility] Address [address] [place] [address] Phone Care Team Providers Care Hands Assembler Name Role Phone Jn Cardoza MD Unavailable Denys Henriquez MD Unavailable Antione Segura PA-C Primary Care Provider [phone] Rhett Cortez MD Unavailable Encounter Details Date Type Department Care Team (Late st Contact Info) Description 04/23/2025 Orders Only [facility] [address] [place] [address] Provider, MD Omar [address] [place] [address] Social History Tobacco Use Types Packs/Day [...] EST Appointment [facility] [address] [place] [phone] Shakira Hand RN [address] [place] [address] 05/31/2025 11:30 AM EST Appointment [facility] [address] [place] [phone] Raisa Bautista [address] [place] [address] 06/04/2025 12:30 AM EST Appointment [facility] [address] [place] [phone] Shakira Hand RN [address] [place] [address] 06/05/2025 1:00 AM EST Appointment [facility] [address] [place] [phone] Raisa Bautista [address] [place] [address] 06/06/2025 12:30 AM EST Appointment [facility] [address] [place] [phone] Raisa Bautista [address] [place] [address] 06/12/2025 1:30 AM EST Appointment [facility] [address] [place] [phone] Shakira Hand RN [address] [place] [address] 06/12/2025 2:00 AM EST Appointment [facility] [address] [place] [phone] LilyRaisa wasserman [address] [place] [address] 06/13/2025 2:00 PM EST Appointment [facility] [address] [place] [address] Antione Segura PA-C [address] [place] [address] 06/14/2025 1:00 AM EST Appointment [facility] [address] [place] [address] LilyRaisa [address] [place] [address] 06/19/2025 1:00 AM EST Appointment [facility] [address] [place] [phone] LilyRaisa [address] [place] [address] 06/19/2025 2:00 AM EST Appointment [facility] [address] [place] [address] Shakira Hand, HUA [address] [place] [address] 06/21/2025 1:00 AM EST Appointment [facility] [address] [place] [phone] LilyRaisa [address] [place] [address] 06/25/2025 9:30 AM EST Telemedicine [facility] [address] [place] [address] Jn Cardoza MD [address] [address] 06/26/2025 1:00 AM EST Appointment [facility] [address] [place] [address] Raisa Bautista [address] [place] [address] 06/27/2025 Appointment [facility] [address] [place] [address] Shakira Hand RN [address] [place] [address] 06/28/2025 1:00 AM EST Appointment [facility] [address] [place] [address] Raisa Bautista [address] [place] [address] 07/03/2025 1:00 AM EST Appointment [facility] [address] [place] [phone] Raisa Bautista [address] [place] [address] 07/03/2025 1:00 PM EST Office Visit [facility] [address] [place] [address] [phone] Celso Akins MD [address] [place] [address] [phone] 07/04/2025 Appointment [facility] [address] [place] [phone] Shakira Hand RN [address] [place] [address] 07/04/2025 11:20 AM EST Office Visit [facility] [address] [place] [address] Antione Segura PA-C [address] [place] [address] 07/05/2025 1:00 AM EST Appointment [facility] [address] [place] [address] LilyRaisa [address] [place] [address] 07/10/2025 1:00 AM EST Appointment [facility] [address] [place] [address] LilyRaisa [address] [place] [address] 07/11/2025 Appointment [facility] [address] [place] [address] Shakira Hand RN [address] [place] [address] 08/21/2025 10:30 AM EDT Appointment [facility] [address] [place] [address] Antione Segura PA-C [address] [place] [address] documented as of this encounter Procedures Procedure Name Priority Date/Time Associated Diagnosis Comments OUTSIDE IMAGING Routine 04/20/2025 8:10 AM EST OUTSIDE XR CHEST REPORT ONLY Routine 04/20/2025 7:44 AM EST documented in this encounter Results * Outside Imaging Report Only (04/20/2025 8:10 AM EST) us Historical Provider IMMadyson XR [...] documented as of this encounter Care Teams Hands Assembler Relationship Specialty Start Date End Date Antione Segura PA-C [address] [place] [address] [email or web address] PCP - General Physician Box Truck Owner Operator 10/12/24 Jn Cardoza MD 22 [facility], 2nd [place] [address] Neurology 02/03/24 Denys Henriquez MD [address] [place] [address] [place] [address] Pulmonary Disease 02/03/24 Rhett Cortez MD [address] [place] [address] Insurance Assigned Provider 01/20/25 documented as of this encounter Additional Source Comments The information contained in this document represents components of the legal health record. It is not the complete legal health record.[facility]
--- OUTSIDE RECORDS SUMMARY | 2025-05-29 20:10 | XMS_ITS | Encounter Summary ---
Author Organization [facility] Address [address] [place] [phone] Phone Care Team Providers Care Filing Clerk Name Role Phone Charbel Webber MD Unavailable Alverto Gandara MD Unavailable [phone] Maikel Rawls MD Unavailable [phone] Lang Germain MD Unavailable Jennifer Duke SILVER DESIGNER Primary Care Provider Lang Germain MD Primary Care Provider Jennifer Duke SILVER DESIGNER Unavailable [phone] Jennifer Duke SILVER DESIGNER Primary Care Provider Lang Germain MD Primary Care Provider Jennifer Duke SILVER DESIGNER Primary Care Provider Sirisha Huertas HOUSE MOVING SUPERVISOR Primary Care Provider [phone] Jn Cardoza MD Unavailable Denys Henriquez MD Unavailable Liyah Patterson MD Unavailable Liyah Patterson MD Primary Care Provider Antione Segura PA-C Primary Care Provider Rhett Cortez MD Unavailable Encounter Details Date Type Department Care Team (Late st Contact Info) Description 03/20/2019 Telephone [facility] [address] [place] [address] Jennifer Duke, SILVER DESIGNER [address] [facility] [address] [place] [address] Social History Tobacco Use Types Packs/Day Years [...] Appointment [facility] [address] [place], [place] [phone] Shakira Hand RN [address] [place] [address] 05/31/2025 11:30 AM EST Appointment [facility] [address] [place], [place] [phone] Raisa Bautista [address] [place] [address] 06/04/2025 12:30 AM EST Appointment [facility] [address] [place], [place] [phone] Shakira Hand RN [address] [place] [address] 06/05/2025 1:00 AM EST Appointment [facility] [address] [place] [address] LilyRaisa [address] [place] [address] 06/06/2025 12:30 AM EST Appointment [facility] [address] [place] [address] Lily, Raisa Lawler [address] [place] [address] 06/12/2025 1:30 AM EST Appointment [facility] [address] [place] [address] Shakira Hand, RN [address] [place] [address] 06/12/2025 2:00 AM EST Appointment [facility] [address] [place] [address] Raisa Bautista [address] [place] [address] 06/13/2025 2:00 PM EST Appointment [facility] [address] [place] [address] Antione Segura PA-C [address] [place] [address] 06/14/2025 1:00 AM EST Appointment [facility] [address] [place] [address] Raisa Bautista [address] [place] [address] 06/19/2025 1:00 AM EST Appointment [facility] [address] [place] [address] Raisa Bautista [address] [place] [address] 06/19/2025 2:00 AM EST Appointment [facility] [address] [place] [address] Shakira Hand RN [address] [place] [address] 06/21/2025 1:00 AM EST Appointment [facility] [address] [place] [phone] Raisa Bautista [address] [place] [address] 06/25/2025 9:30 AM EST Telemedicine [facility] Neurology [facility] [address] [place] [address] Jn Cardoza MD [address] [place] [address], 2[address] [place] [address] 06/26/2025 1:00 AM EST Appointment [facility] [address] [place] [phone] Raisa Bautista [address] [place] [address] 06/27/2025 Appointment [facility] [address] [place] [phone] Shakira Hand RN [address] [place] [address] 06/28/2025 1:00 AM EST Appointment [facility] [address] [place] [phone] Raisa Bautista [address] [place] [address] 07/03/2025 1:00 AM EST Appointment [facility] [address] [place] [phone] LilyRaisa [address] [place] [address] 07/03/2025 1:00 PM EST Office Visit [facility] Pulmonology, Allergy and Critical Care Medicine Clinic [address] [place] [address] Celso Akins MD [address] [place] [address] 07/04/2025 Appointment [facility] [address] [place] [address] Shakira Hand RN [address] [place] [address] 07/04/2025 11:20 AM EST Office Visit [facility] 40 [place] [address] Antione Segura PA-C [address] [place] [address] 07/05/2025 1:00 AM EST Appointment [facility] [address] [place], [place] [phone] LilyRaisa [address] [place] [address] 07/10/2025 1:00 AM EST Appointment [facility] [address] [place], [place] [phone] Lily Raisa Lawler [address] [place] [address] 07/11/2025 Appointment [facility] [address] [place] [address] Shakira Hand RN [address] [place] [address] 08/21/2025 10:30 AM EDT Appointment [facility] [address] [place] [address] Antione Segura PA-C [address] [place] [address] [email or web address] documented as of this encounter Visit Diagnoses Not on filedocumented in this encounter Additional Health Concerns Assessment Noted Time PHQ-2 Depression Total Score: 0 11/18/19 19 2:05 PM EDT documented as of this encounter Care Teams Filing Clerk Relationship Specialty Start Date End Date Jennifer Duke NP [address] [place] [address] PCP - General Family Medicine 12/14/18 11/12/19 Lang Germain MD [address] [place] [address] PCP - General Internal Medicine 11/13/19 12/03/19 Jennifer Duke NP [address] [place] [address] PCP - General Family Medicine 12/04/19 01/23/20 Lang Germain MD [address] [place] [address] PCP - General Internal Medicine 01/24/20 01/30/20 Jennifer Duke, SILVER DESIGNER [address] [place] [address] [email or web address] PCP - General Family Medicine 01/31/20 06/22/23 Sirisha Huertas FNP [address] [place] [address] [email or web address] PCP - General Nurse Practitioner 06/23/23 08/03/24 Liyah Patterson MD [address] [place] [address] [email or web address] PCP - General Family Medicine 08/04/24 10/11/24 Antione Segura PA-C [address] [place] [address] [email or web address] PCP - General Physician Daub Color Mixer 10/12/24 Charbel Webber MD [address] [facility], [address] [place] [address] [email or web address] Historical LMR Provider 04/01/17 0 Alverto Gandara MD [address] [facility], 2nd [place] [address] Historical LMR Provider 04/01/17 12/03/19 Maikel Rawls MD [address] [place] [address] [email or web address] Historical LMR Provider 04/01/17 12/03/19 Lang Germain MD [address] [place] [address] Insurance Assigned Provider 09/18/23 02/19/24 Jennifer Duke NP [address] [place] [address] Nurse Practitioner Family Medicine 11/13/19 01/30/20 Jn Cardoza MD 22 [facility], 2nd [place] [address] Neurology 02/03/24 Denys Henriquez MD [address] [place] [address] [place] [address] Pulmonary Disease 02/03/24 Liyah Patterson MD 15 [facility] [address]. [address] [place] [address] [email or web address] Insurance Assigned Provider 02/19/24 01/20/25 Rhett Cortez MD [address] [place] [address] Insurance Assigned Provider 01/20/25 documented as of this encounter Additional Source Comments The information contained in this document represents components of the legal health record. It is not the complete legal health record.[facility]
--- OUTSIDE RECORDS SUMMARY | 2025-05-29 20:10 | XMS_ITS | Encounter Summary ---
Author Organization [facility] Address [address] [address] Phone Care Team Providers Care Assembly Stock Supervisor Name Role Phone Jn Cardoza MD Unavailable Denys Henriquez MD Unavailable Antione Segura PA-C Primary Care Provider Rhett Cortez MD Unavailable Encounter Details Date Type Department Care Team (Late st Contact Info) Description 04/15/2025 Home Health Resumption of Care Planning [facility] [address] [place] [phone] Dennise Rodriguez, HUA [address] [place] [address] [email or web address] Social History Tobacco Use Types Packs/Day Years [...] EST Appointment [facility] [address] [place] [phone] Shakira Hand, HUA [address] [place] [address] 05/31/2025 11:30 AM EST Appointment [facility] [address] [place] [phone] Raisa Bautista [address] [place] [phone] 06/04/2025 12:30 AM EST Appointment [facility] [address] [place] [phone] Shakiar Hand RN [address] [place] [address] 06/05/2025 1:00 AM EST Appointment [facility] [address] [place] [phone] Raisa Bautista [address] [place] [address] 06/06/2025 12:30 AM EST Appointment [facility] [address] [place] [phone] Raisa Bautista [address] [place] [address] 06/12/2025 1:30 AM EST Appointment [facility] [address] [place] [phone] Shakira Hand, HUA [address] [place] [address] 06/12/2025 2:00 AM EST Appointment [facility] [address] [place] [phone] LilyRaisa M [address] [place] [address] 06/13/2025 2:00 PM EST Appointment [facility] [address] [place] [address] Antione Segura PA-C [address] [place] [address] 06/14/2025 1:00 AM EST Appointment [facility] [address] [place] [address] Lily, Raisa M [address] [place] [address] 06/19/2025 1:00 AM EST Appointment [facility] [address] [place] [phone] Lily, Raisa M [address] [place] [address] 06/19/2025 2:00 AM EST Appointment [facility] [address] [place] [address] Shakira Hand, HUA [address] [place] [address] 06/21/2025 1:00 AM EST Appointment [facility] [address] [place] [phone] Lily Raisa M [address] [place] [address] 06/25/2025 9:30 AM EST Telemedicine [facility] Neurology Clinic [address] [place] [address] Jn Cardoza MD [address] [address] 06/26/2025 1:00 AM EST Appointment [facility] [address] [place] [phone] Raisa Bautista [address] [place] [phone] 06/27/2025 Appointment [facility] [address] [place] [phone] Shakira Hand RN [address] [place] [address] 06/28/2025 1:00 AM EST Appointment [facility] [address] [place] [phone] Raisa Bautista [address] [place] [address] 07/03/2025 1:00 AM EST Appointment [facility] [address] [place] [phone] Raisa Bautista [address] [place] [address] 07/03/2025 1:00 PM EST Office Visit [facility] Pulmonology, Allergy and Critical Care Medicine Clinic [address] [place] [address] Celso Akins MD [address] [place] [address] [phone] 07/04/2025 Appointment [facility] [address] [place] [phone] Shakira Hand RN [address] [place] [address] 07/04/2025 11:20 AM EST Office Visit [facility] Primary Care Clinic 40 [place] [address] Antione Segura PA-C [address] [place] [address] 07/05/2025 1:00 AM EST Appointment [facility] [address] [place] [phone] Raisa Bautista [address] [place] [address] 07/10/2025 1:00 AM EST Appointment [facility] [address] [place] [address] Raisa Bautista [address] [place] [address] 07/11/2025 Appointment [facility] [address] [place] [phone] Shakira Hand RN [address] [place] [address] 08/21/2025 10:30 AM EDT Appointment [facility] [address] [place] [address] Antione Segura PA-C [address] [place] [address] documented as of this encounter Visit Diagnoses Not on filedocumented in this encounter Additional Health Concerns Assessment Noted Time PHQ-9 Depression Total Score: 23 10/08/2 025 3:04 PM EDT PHQ-2 Depression Total Score: 5 03/21/20 25 3:04 PM EDT documented as of this encounter Care Teams Assembly Stock Supervisor Relationship Specialty Start Date End Date Antione Segura PA-C [address] [place] [address] PCP - General Physician German Professor 10/12/24 Jn Cardoza MD 22 [facility], 2nd [place] [address] Neurology 02/03/24 Denys Henriquez MD [address] [place] [address] [place] [address] Pulmonary Disease 02/03/24 Rhett Cortez MD [address] [place] [address] [email or web address] Insurance Assigned Provider 01/20/25 documented as of this encounter Additional Source Comments The information contained in this document represents components of the legal health record. It is not the complete legal health record.[facility]
--- OUTSIDE RECORDS SUMMARY | 2025-05-29 20:10 | XMS_ITS | Encounter Summary ---
Author Organization [facility] Address [address] [place] [address] Phone Care Team Providers Care Computer Systems Architect Name Role Phone Jn Cardoza MD Unavailable Denys Henriquez MD Unavailable Antione Segura PA-C Primary Care Provider Rhett Cortez MD Unavailable Encounter Details Date Type Department Care Team (Late st Contact Info) Description 04/26/2025 Lab Requisition [facility] Lab Main [address] [place] [address] Rosario Rodriguez, BRIM PLATER [address] [phone] [email or web address] Illness, unspecified Social History Tobacco Use Types [...] high school, GED, job training, learning the [place] language, technical skills, or developing parenting skills)? [...] Description 05/31/2025 2:00 AM EST Appointment [facility] [address] [place] [phone] Shakira Hand, HUA [address] [place] [address] [email or web address] 05/31/2025 11:30 AM EST Appointment [facility] [address] [place] [phone] Raisa Bautista [address] [place] [phone] [email or web address] 06/04/2025 12:30 AM EST Appointment [facility] [address] [place] [phone] Shakira Hand, HUA [address] [place] [phone] [email or web address] 06/05/2025 1:00 AM EST Appointment [facility] [address] [place] [phone] Raisa Bautista [address] [place] [phone] [email or web address] 06/06/2025 12:30 AM EST Appointment [facility] [address] [place] [phone] Raisa Bautista [address] [place] [address] [email or web address] 06/12/2025 1:30 AM EST Appointment [facility] [address] [place] [phone] Shakira Hand, HUA [address] [place] [address] [email or web address] 06/12/2025 2:00 AM EST Appointment [facility] [address] [place] [phone] LilyRaisa M [address] [place] [address] [email or web address] 06/13/2025 2:00 PM EST Appointment [facility] [address] [place] [address] Antione Segura PA-C [address] [place] [address] [email or web address] 06/14/2025 1:00 AM EST Appointment [facility] [address] [place] [address] LilyRaisa M [address] [place] [address] [email or web address] 06/19/2025 1:00 AM EST Appointment [facility] [address] [place] [phone] Lily Raisa M [address] [place] [address] [email or web address] 06/19/2025 2:00 AM EST Appointment [facility] [address] [place], [place] [phone] Shakira Hand, HUA [address] [place] [address] [email or web address] 06/21/2025 1:00 AM EST Appointment [facility] [address] [place] [phone] Lily, Raisa M [address] [place] [address] 06/25/2025 9:30 AM EST Telemedicine [facility] Neurology Clinic 22 [place] [address] Jn Cardoza MD [address] [address] 06/26/2025 1:00 AM EST Appointment [facility] [address] [place] [phone] Raisa Bautista [address] [place] [address] 06/27/2025 Appointment [facility] [address] [place] [phone] Shakira Hand RN [address] [place] [address] 06/28/2025 1:00 AM EST Appointment [facility] [address] [place] [phone] Raisa Bautista [address] [place] [address] 07/03/2025 1:00 AM EST Appointment [facility] [address] [place] [phone] Raisa Bautista [address] [place] [address] 07/03/2025 1:00 PM EST Office Visit [facility] Pulmonology, Allergy and Critical Care Medicine Clinic [address] [place] [address] Celso Akins MD [address] [place] [address] [phone] 07/04/2025 Appointment [facility] [address] [place] [phone] Shakira Hand RN [address] [place] [address] [email or web address] 07/04/2025 11:20 AM EST Office Visit [facility] Primary Care Clinic 40 [place] [address] Antione Segura PA-C [address] [place] [address] 07/05/2025 1:00 AM EST Appointment [facility] [address] [place] [phone] LilyRaisa mckeon [address] [place] [address] 07/10/2025 1:00 AM EST Appointment [facility] [address] [place] [address] Raisa Bautista [address] [place] [address] 07/11/2025 Appointment [facility] [address] [place] [address] Shakira Hand RN [address] [place] [address] 08/21/2025 10:30 AM EDT Appointment [facility] [address] [place] [address] Antione Segura PA-C [address] [place] [address] documented as of this encounter Procedures Procedure Name Priority Date/Time Associated Diagnosis Comments COMPREHENSIVE METABOLIC PANEL (CMP) Today 04/26/2025 6:18 AM EST Illness, unspecified CBC Today 04/26/2025 6:18 AM EST Illness, unspecified documented in this encounter Results * (ABNORMAL) CBC (04/26/2025 6:18 AM EST) WBC 11.77(H) 4.00 - 11.00 K/uL 04/26/2025 2:42 PM [facility] RBC 3.61(L) 4.00 - 5.20 M/uL 04/26/2025 2:42 PM [facility] Hemoglobin 11.0(L) 12.0 - 16.0 g/dL 04/26/2025 2:42 PM [facility] Hematocrit 36.8 36.0 - 46.0 % 04/26/2025 2:42 PM [facility] MCV 101.9(H) 80.0 - 100.0 fL 04/26/2025 2:42 PM [facility] MCH 30.5 27.0 - 31.0 pg 04/26/2025 2:42 PM [facility] MCHC 29.9(L) 32.0 - 36.0 g/dL 04/26/2025 2:42 PM [facility] PLT 431 150 - 450 K/uL 04/26/2025 2:42 PM [facility] MPV 9.6 8.4 - 12.0 fL 04/26/2025 2:42 PM [facility] RDW-CV 15.5(H) 11.5 - 14.5 % 04/26/2025 2:42 PM [facility] Absolute NRBC 0.00 <=0.00 K cells/uL 04/26/2025 2:42 PM [facility] NRBC 0.0 <=0.0 /100 WBCs 04/26/2025 2:42 PM [facility] Blood (Blood) 04/26/2025 6:1 8 AM EST 04/26/2025 9:55 AM EST us Rosario Rodriguez NP LAB BLOOD BKR ORDERABLES Final R esult [facility] [address] [place], [place] [phone] * (ABNORMAL) Comprehensive Metabolic Panel (CMP) (04/26/2025 6:18 AM EST) Sodium 139 136 - 145 mmol/L 04/26/2025 4:11 PM [facility] Potassium 4.2 3.4 - 5.1 mmol/L 04/26/2025 4:11 PM [facility] Chloride 95(L) 98 - 107 mmol/L 04/26/2025 4:11 PM [facility] CO2 35(H) 20 - 31 mmol/L 04/26/2025 4:11 PM [facility] Anion Gap 9 3 - 17 mmol/L 04/26/2025 4:11 PM [facility] BUN 19 6 - 23 mg/dL 04/26/2025 4:11 PM [facility] Creatinine 0.80 0.50 - 1.00 mg/dL 04/26/2025 4:11 PM [facility] eGFR 83 >59 mL/min/1.7 3m2 04/26/2025 4:11 PM [facility] Comment:Estimated glomerular filtration rate calculated using the CKD-EPI refit equation. Glucose 130(H) 70 - 99 mg/dL 04/26/2025 4:11 PM [facility] Calcium 9.7 8.5 - 10.5 mg/dL 04/26/2025 4:11 PM [facility] AST 18 <33 U/L 04/26/2025 4:11 PM [facility] ALT 13 <34 U/L 04/26/2025 4:11 PM [facility] Alkaline Phosphatase 65 40 - 130 U/L 04/26/2025 4:11 PM [facility] Bilirubin, Total <0.2 0.0 - 1.2 mg/dL 04/26/2025 4:11 PM [facility] Total Protein 6.0(L) 6.4 - 8.3 g/dL 04/26/2025 4:11 PM [facility] Albumin 3.7 3.5 - 5.2 g/dL 04/26/2025 4:11 PM EST [facility] Globulin 2.3 1.9 - 4.1 g/dL 04/26/2025 4:11 PM EST [facility] Blood (Blood) 04/26/2025 6:1 8 AM EST 04/26/2025 9:55 AM EST us Rosario Rodriguez BRIM PLATER LAB BLOOD BKR ORDERABLES Final R esult [facility] [address] [place] [address] documented in this encounter Visit Diagnoses Diagnosis Illness, unspecified documented in this encounter Additional Health Concerns Assessment Noted Time PHQ-9 Depression Total Score: 23 025 3:04 PM EDT PHQ-2 Depression Total Score: 5 03/21/20 25 3:04 PM EDT documented as of this encounter Care Teams Computer Systems Architect Relationship Specialty Start Date End Date Antione Segura PA-C [address] [place] [address] PCP - General Physician Chef Manager 10/12/24 Jn Cardoza MD [address] [place] [address], [address] [place] [address] Neurology 02/03/24 Denys Henriquez MD [address] [place] [address] [place] [address] Pulmonary Disease 02/03/24 Rhett Cortez MD [address] [place] [address] Insurance Assigned Provider 01/20/25 documented as of this encounter Additional Source Comments The information contained in this document represents components of the legal health record. It is not the complete legal health record.[facility]
--- OUTSIDE RECORDS SUMMARY | 2025-05-29 20:10 | XMS_ITS | Encounter Summary ---
Author Organization [facility] Address [address] [place] [address] Phone Care Team Providers Care Pnp Name Role Phone Lang Germain MD Unavailable Jennifer Duke INSTRUCTOR TRAINER CANINE SERVICE Primary Care Provider Sirisha Huertas PERFORMANCE SOLUTIONS SPECIALIST Primary Care Provider [phone] Jn Cardoza MD Unavailable Denys Henriquez MD Unavailable Liyah Patterson MD Unavailable Liyah Patterson MD Primary Care Provider [phone] Antione Segura PA-C Primary Care Provider Rhett Cortez MD Unavailable Encounter Details Date Type Department Care Team (Late st Contact Info) Description 02/25/2023 Procedure Pass [facility], [address] [address] Social History Tobacco Use Types Packs/Day Years [...] EST Appointment [facility] [address] [place] [phone] Shakira Hand, HUA [address] [place] [address] [email or web address] 05/31/2025 11:30 AM EST Appointment [facility] [address] [place] [phone] Raisa Bautista [address] [place] [address] [email or web address] 06/04/2025 12:30 AM EST Appointment [facility] [address] [place] [phone] Shakira Hand RN [address] [place] [address] [email or web address] 06/05/2025 1:00 AM EST Appointment [facility] [address] [place] [phone] Raisa Bautista [address] [place] [address] [email or web address] 06/06/2025 12:30 AM EST Appointment [facility] [address] [place] [phone] Raisa Bautista [address] [place] [address] [email or web address] 06/12/2025 1:30 AM EST Appointment [facility] [address] [place] [phone] Shakira Hand, HUA [address] [place] [address] [email or web address] 06/12/2025 2:00 AM EST Appointment [facility] [address] [place] [phone] LilyRaisa M [address] [place] [address] [email or web address] 06/13/2025 2:00 PM EST Appointment [facility] [address] [place] [address] Antione Segura PA-C [address] [place] [address] [email or web address] 06/14/2025 1:00 AM EST Appointment [facility] [address] [place], [place] [phone] Lily, Raisa M [address] [place] [address] [email or web address] 06/19/2025 1:00 AM EST Appointment [facility] [address] [place] [phone] Lily, Raisa M [address] [place] [address] [email or web address] 06/19/2025 2:00 AM EST Appointment [facility] [address] [place] [phone] Shakira Hand, HUA [address] [place] [address] [email or web address] 06/21/2025 1:00 AM EST Appointment [facility] [address] [place] [phone] Lily Raisa M [address] [place] [address] 06/25/2025 9:30 AM EST Telemedicine [facility] [address] [place] [address] Jn Cardoza MD [address] [address] 06/26/2025 1:00 AM EST Appointment [facility] [address] [place] [phone] Raisa Bautista [address] [place] [address] 06/27/2025 Appointment [facility] [address] [place] [phone] Shakira Hand RN [address] [place] [address] 06/28/2025 1:00 AM EST Appointment [facility] [address] [place] [phone] Raisa Bautista [address] [place] [address] 07/03/2025 1:00 AM EST Appointment [facility] [address] [place] [phone] Raisa Bautista [address] [place] [address] 07/03/2025 1:00 PM EST Office Visit [facility] Pulmonology, Allergy and Critical Care Medicine [facility] [address] [place] [address] Celso Akins MD [address] [place] [address] 07/04/2025 Appointment [facility] [address] [place] [phone] Shakira Hand RN [address] [place] [address] [email or web address] 07/04/2025 11:20 AM EST Office Visit [facility] [address] [place], [place] [address] Antione Segura PA-C [address] [place] [address] 07/05/2025 1:00 AM EST Appointment [facility] [address] [place] [phone] Raisa Bautista [address] [place] [address] [email or web address] 07/10/2025 1:00 AM EST Appointment [facility] [address] [place] [phone] Raisa Bautista [address] [place] [address] [email or web address] 07/11/2025 Appointment [facility] [address] [place] [address] Shakira Hand RN [address] [place] [address] 08/21/2025 10:30 AM EDT Appointment [facility] [address] [place] [address] Antione Segura PA-C [address] [place] [address] documented as of this encounter Visit Diagnoses Not on filedocumented in this encounter Additional Health Concerns Assessment Noted Time PHQ-9 Depression Total Score: 21 023 12:35 PM EDT PHQ-2 Depression Total Score: 2 02/19/20 23 6:55 PM EDT documented as of this encounter Care Teams Pnp Relationship Specialty Start Date End Date Jennifer Duke, INSTRUCTOR TRAINER CANINE SERVICE [address] [place] [address] [email or web address] PCP - General Family Medicine 01/31/20 06/22/23 Sirisha Huertas, AGA [address] [place] [address] [email or web address] PCP - General Nurse Practitioner 06/23/23 08/03/24 Liyah Patterson MD [address] [place] [address] [email or web address] PCP - General Family Medicine 08/04/24 10/11/24 Antione Segura PA-C [address] [place] [address] [email or web address] PCP - General Physician Boring Machine Operator Horizontal 10/12/24 Lang Germain MD [address] [place] [address] [email or web address] Insurance Assigned Provider 09/18/23 02/19/24 Jn Cardoza MD 22 [facility], 2nd [place] [address] [email or web address] Neurology 02/03/24 Denys Henriquez MD [address] [place] [address] [place] [address] Pulmonary Disease 02/03/24 Liyah Patterson MD [address] [place] [address] [email or web address] Insurance Assigned Provider 02/19/24 01/20/25 Rhett Cortez MD [address] [place] [address] [email or web address] Insurance Assigned Provider 01/20/25 documented as of this encounter Additional Source Comments The information contained in this document represents components of the legal health record. It is not the complete legal health record.[facility]
--- OUTSIDE RECORDS SUMMARY | 2025-05-29 20:10 | XMS_ITS | Encounter Summary ---
Author Organization [facility] Address [address] [place] [address] Phone Care Team Providers Care Stonecutter Hand Name Role Phone Charbel Webber MD Unavailable Alverto Gandara MD Unavailable Maikel Rawls MD Unavailable [phone] Lang Germain MD Primary Care Provider Jennifer Duke BUSINESS SERVICES SALES REPRESENTATIVE Primary Care Provider Lang Germain MD Primary Care Provider Jennifer Duke BUSINESS SERVICES SALES REPRESENTATIVE Primary Care Provider Lang Germain MD Primary Care Provider Jennifer Duke BUSINESS SERVICES SALES REPRESENTATIVE Primary Care Provider Lang Germain MD Unavailable Lang Germain MD Primary Care Provider Jennifer Duke BUSINESS SERVICES SALES REPRESENTATIVE Primary Care Provider Lang Germain MD Primary Care Provider Jennifer Duke BUSINESS SERVICES SALES REPRESENTATIVE Primary Care Provider Lang Germain MD Primary Care Provider [phone] Jennifer Duke BUSINESS SERVICES SALES REPRESENTATIVE Primary Care Provider [phone] Lang Germain MD Primary Care Provider [phone] Jennifer Duke BUSINESS SERVICES SALES REPRESENTATIVE Unavailable Jennifer Duke BUSINESS SERVICES SALES REPRESENTATIVE Primary Care Provider [phone] Lang Germain MD Primary Care Provider [phone] Jennifer Duke BUSINESS SERVICES SALES REPRESENTATIVE Primary Care Provider [phone] Aleksandar Sirishafrancisca Kendall PERIPHERAL VASCULAR TECH Primary Care Provider [phone] Jn Cardoza MD Unavailable Denys Henriquez MD Unavailable [phone] Liyah Patterson MD Unavailable Liyah Patterson MD Primary Care Provider [phone] Antione Segura PA-C Primary Care Provider [phone] Rhett Cortez MD Unavailable Reason for Referral * MRI/CAT Scan - Closed Specialty Diagnoses / Procedures Referred By Contac t Referred To Contact Procedures CT Head Outside (No Interpretation) System, Provider Not In, PhD [address] [address] Referral ID Status Reason Start Date Expiration Date Visits Re quested Visits Authorized [id number] Closed 06/20/2018 06/20/2019 1 1 * MRI/CAT Scan - Closed Specialty Diagnoses / Procedures Referred By Contac t Referred To Contact Procedures CT Face Outside (No Interpretation) System, Provider Not In, PhD [address] [address] Referral ID Status Reason Start Date Expiration Date Visits Re quested Visits Authorized [id number] Closed 06/20/2018 06/20/2019 1 1 Encounter Details Date Type Department Care Team (Late st Contact Info) Description 06/20/2018 Ancillary Orders [facility] [address] [place] [address] System, Provider Not In, [place] [address] Social History Tobacco Use Types Packs/Day Years [...] Description 05/31/2025 2:00 AM EST Appointment [facility] [address] [place] [phone] Shakira Hand RN [address] [place] [address] 05/31/2025 11:30 AM EST Appointment [facility] [address] [place] [phone] Raisa Bautista [address] [place] [address] 06/04/2025 12:30 AM EST Appointment [facility] [address] [place] [phone] Shakira Hand RN [address] [place] [address] 06/05/2025 1:00 AM EST Appointment [facility] [address] [place] [phone] Raisa Bautista [address] [place] [address] 06/06/2025 12:30 AM EST Appointment [facility] [address] [place] [phone] Raisa Bautista [address] [place] [address] 06/12/2025 1:30 AM EST Appointment [facility] [address] [place] [phone] Shakira Hand RN [address] [place] [address] 06/12/2025 2:00 AM EST Appointment [facility] [address] [place] [phone] LilyRaisa [address] [place] [address] 06/13/2025 2:00 PM EST Appointment [facility] [address] [place] [address] Antione Segura PA-C [address] [place] [address] 06/14/2025 1:00 AM EST Appointment [facility] [address] [place] [address] Lily Raisa Lawler [address] [place] [address] 06/19/2025 1:00 AM EST Appointment [facility] [address] [place] [phone] Lily Raisa M [address] [place] [address] 06/19/2025 2:00 AM EST Appointment [facility] [address] [place] [phone] Shakira HandHUA [address] [place] [address] 06/21/2025 1:00 AM EST Appointment [facility] [address] [place] [address] LilyRaisa [address] [place] [address] 06/25/2025 9:30 AM EST Telemedicine [facility] [address] [place] [address] Jn Cardoza MD [address] [place] [address], [address] [place] [address] 06/26/2025 1:00 AM EST Appointment [facility] [address] [place] [phone] LilyRaisa [address] [place] [address] 06/27/2025 Appointment [facility] [address] [place] [phone] Shakira Hand, HUA [address] [place] [address] 06/28/2025 1:00 AM EST Appointment [facility] [address] [place] [phone] LilyRaisa [address] [place] [address] 07/03/2025 1:00 AM EST Appointment [facility] [address] [place] [address] LilyRaisa [address] [place] [address] 07/03/2025 1:00 PM EST Office Visit [facility] Pulmonology, Allergy and Critical Care Medicine Clinic [address] [facility] [place] [address] Celso Akins MD [address] [place] [address] 07/04/2025 Appointment [facility] [address] [place], [place] [phone] Shakira Hand, HUA [address] [place] [address] 07/04/2025 11:20 AM EST Office Visit [facility] Primary [facility] Clinic [address] [place] [address] Antione Segura PA-C [address] [place] [address] 07/05/2025 1:00 AM EST Appointment [facility] [address] [place], [place] [phone] Raisa Bautista [address] [place] [address] 07/10/2025 1:00 AM EST Appointment [facility] [address] [place], [place] [phone] Raisa Bautista [address] [place] [address] 07/11/2025 Appointment [facility] [address] [place], [place] [phone] Shakira Hand RN [address] [place] [address] 08/21/2025 10:30 AM EDT Appointment [facility] [address] [place] [address] Antione Segura PA-C [address] [place] [address] [email or web address] documented as of this encounter Results * [...] documented as of this encounter Care Teams Stonecutter Hand Relationship Specialty Start Date End Date Lang Germain MD [address] [place] [address] PCP - General Internal Medicine 06/13/18 06/30/18 Jennifer Duke NP [address] [place] [address] PCP - General Family Medicine 07/01/18 08/02/18 Lang Germain MD [address] [place] [address] PCP - General Internal Medicine 08/03/18 09/07/18 Jennifer Duke, BUSINESS SERVICES SALES REPRESENTATIVE [address] [place] [address] [email or web address] PCP - General Family Medicine 09/08/18 09/14/18 Lang Germain MD [address] [place] [address] [email or web address] PCP - General Internal Medicine 09/15/18 10/02/18 Jennifer Duke NP [address] [place] [address] [email or web address] PCP - General Family Medicine 10/03/18 10/05/18 Lang Germain MD [address] [place] [address] [email or web address] PCP - General Internal Medicine 10/06/18 10/12/18 Jennifer Duke NP [address] [place] [address] [email or web address] PCP - General Family Medicine 10/13/18 11/09/18 Lang Germain MD [address] [place] [address] [email or web address] PCP - General Internal Medicine 11/10/18 11/22/18 Jennifer Duke BUSINESS SERVICES SALES REPRESENTATIVE [address] [place] [address] [email or web address] PCP - General Family Medicine 11/23/18 11/30/18 Lang Germain MD [address] [place] [address] [email or web address] PCP - General Internal Medicine 12/01/18 12/13/18 Jennifer Duke NP [address] [place] [address] [email or web address] PCP - General Family Medicine 12/14/18 11/12/19 Lang Germain MD [address] [place] [address] [email or web address] PCP - General Internal Medicine 11/13/19 12/03/19 Jennifer Duke BUSINESS SERVICES SALES REPRESENTATIVE [address] [place] [address] [email or web address] PCP - General Family Medicine 12/04/19 01/23/20 Lang Germain MD [address] [place] [address] [email or web address] PCP - General Internal Medicine 01/24/20 01/30/20 Jennifer Duke BUSINESS SERVICES SALES REPRESENTATIVE [address] [place] [address] [email or web address] PCP - General Family Medicine 01/31/20 06/22/23 Sirisha Huertas FNP [address] [place] [address] [email or web address] PCP - General Nurse Practitioner 06/23/23 08/03/24 Liyah Patterson MD [address] [facility] [address] [place] [address] [email or web address] PCP - General Family Medicine 08/04/24 10/11/24 Antione Segura PA-C [address] [place] [address] PCP - General Physician Bunker Worker 10/12/24 Charbel Webber MD 22 [facility], [address] [place] [address] [email or web address] Historical LMR Provider 04/01/17 0 Alverto Gandara MD 22 [facility], 2nd [place] [address] Historical LMR Provider 04/01/17 12/03/19 Maikel Rawls MD [address] [place] [address] [email or web address] Historical LMR Provider 04/01/17 12/03/19 Lang Germain MD [address] [place] [address] [email or web address] Insurance Assigned Provider 09/18/23 02/19/24 Jennifer Duke, [place] [address] [place] [address] Nurse Practitioner Family Medicine 11/13/19 01/30/20 Jn Cardoza MD 22 [facility], 2nd [place] [address] Neurology 02/03/24 Denys Henriquez MD [address] [place] [address] [place] [address] Pulmonary Disease 02/03/24 Liyah Patterson MD 15 [facility] [address] [place] [address] [email or web address] Insurance Assigned Provider 02/19/24 01/20/25 Rhett Cortez MD [address] [place] [address] Insurance Assigned Provider 01/20/25 documented as of this encounter Additional Source Comments The information contained in this document represents components of the legal health record. It is not the complete legal health record.[facility]
--- OUTSIDE RECORDS SUMMARY | 2025-05-29 20:10 | XMS_ITS | Encounter Summary ---
Author Organization [facility] Address [address] [place] [address] Phone Care Team Providers Care Weld Technician Name Role Phone Lang Germain MD Unavailable Jennifer Duke COGNOS ADMINISTRATOR Primary Care Provider Sirisha Huertas GERICARE AIDE TEACHER Primary Care Provider Jn Cardoza MD Unavailable Denys Henriquez MD Unavailable Liyah Patterson MD Unavailable Liyah Patterson MD Primary Care Provider [phone] Antione Segura PA-C Primary Care Provider Rhett Cortez MD Unavailable Encounter Details Date Type Department Care Team (Late st Contact Info) Description 09/01/2021 Procedure Pass [facility], [address] [address] Social History Tobacco Use Types Packs/Day Years [...] Description 05/31/2025 2:00 AM EST Appointment [facility] [address] [place] [phone] Shakira Hand RN [address] [place] [address] 05/31/2025 11:30 AM EST Appointment [facility] [address] [place] [phone] Raisa Bautista [address] [place] [address] 06/04/2025 12:30 AM EST Appointment [facility] [address] [place] [phone] Shakira Hand, HUA [address] [place] [address] 06/05/2025 1:00 AM EST Appointment [facility] [address] [place] [phone] Raisa Bautista [address] [place] [address] 06/06/2025 12:30 AM EST Appointment [facility] [address] [place] [phone] Riasa Bautista [address] [place] [address] 06/12/2025 1:30 AM EST Appointment [facility] [address] [place] [phone] Shakira Hand, HUA [address] [place] [address] 06/12/2025 2:00 AM EST Appointment [facility] [address] [place] [phone] Lily Raisa M [address] [place] [address] 06/13/2025 2:00 PM EST Appointment [facility] [address] [place] [address] Antione Segura PA-C [address] [place] [address] 06/14/2025 1:00 AM EST Appointment [facility] [address] [place] [address] Lily, Raisa M [address] [place] [address] 06/19/2025 1:00 AM EST Appointment [facility] [address] [place] [address] Lily, Raisa M [address] [place] [address] 06/19/2025 2:00 AM EST Appointment [facility] [address] [place] [address] Shakira Hand, HUA [address] [place] [address] 06/21/2025 1:00 AM EST Appointment [facility] [address] [place] [address] Lily, Raisa M [address] [place] [address] 06/25/2025 9:30 AM EST Telemedicine [facility] [address] [place] [address] Jn Cardoza MD [address] [address] 06/26/2025 1:00 AM EST Appointment [facility] [address] [place] [phone] Raisa Bautista [address] [place] [address] 06/27/2025 Appointment [facility] [address] [place] [phone] Shakira Hand RN [address] [place] [address] 06/28/2025 1:00 AM EST Appointment [facility] [address] [place] [address] Raisa Bautista [address] [place] [address] 07/03/2025 1:00 AM EST Appointment [facility] [address] [place] [address] Raisa Bautista [address] [place] [address] 07/03/2025 1:00 PM EST Office Visit [facility] [address] [place] [address] Celso Akins MD [address] [place] [address] [phone] 07/04/2025 Appointment [facility] [address] [place] [address] Shakira Hand RN [address] [place] [address] 07/04/2025 11:20 AM EST Office Visit [facility] 40 [place] [address] Antione Segura PA-C [address] [place] [address] 07/05/2025 1:00 AM EST Appointment [facility] [address] [place] [phone] Raisa Bautista [address] [place] [address] 07/10/2025 1:00 AM EST Appointment [facility] [address] [place] [phone] Lily Raisa M [address] [place] [address] 07/11/2025 Appointment [facility] [address] [place] [address] Shakira Hand RN [address] [place] [address] 08/21/2025 10:30 AM EDT Appointment [facility] [address] [place] [address] Antione Segura PA-C [address] [place] [address] documented as of this encounter Visit Diagnoses Not on filedocumented in this encounter Additional Health Concerns Assessment Noted Time PHQ-2 Depression Total Score: 0 05/25/20 19 9:02 AM EST documented as of this encounter Care Teams Weld Technician Relationship Specialty Start Date End Date Jennifer Duke, COGNOS ADMINISTRATOR [address] [place] [address] PCP - General Family Medicine 01/31/20 06/22/23 Sirisha Huertas FNP [address] [place] [address] PCP - General Nurse Practitioner 06/23/23 08/03/24 Liyah Patterson MD [address] [place] [address] [email or web address] PCP - General Family Medicine 08/04/24 10/11/24 Antione Segura PA-C [address] [place] [place] [email or web address] PCP - General Physician Private Equity Associate 10/12/24 Lang Germain MD [address] [place] [place] [address] Insurance Assigned Provider 09/18/23 02/19/24 Jn Cardoza MD 22 [facility], 2nd [place] [address] Neurology 02/03/24 Denys Henriquez MD [address] [place] [address] [place] [address] Pulmonary Disease 02/03/24 Liyah Patterson MD [address] [place] [address] Insurance Assigned Provider 02/19/24 01/20/25 Rhett Cortez MD [address] [place] [address] Insurance Assigned Provider 01/20/25 documented as of this encounter Additional Source Comments The information contained in this document represents components of the legal health record. It is not the complete legal health record.[facility]
--- OUTSIDE RECORDS SUMMARY | 2025-05-29 20:10 | XMS_ITS | Encounter Summary ---
Author Organization [facility] Address [address] [place] [address] Phone Care Team Providers Care Child And Adolescent Psychologist Name Role Phone Lang Germain MD Unavailable Jennifer Duke BUILDER BEAM Primary Care Provider Sirisha Huertas EDUCATIONAL DIRECTOR Primary Care Provider Jn Cardoza MD Unavailable Denys Henriquez MD Unavailable Liyah Patterson MD Unavailable Liyah Patterson MD Primary Care Provider [phone] Antione Segura PA-C Primary Care Provider [phone] Rhett Cortez MD Unavailable Encounter Details Date Type Department Care Team (Late st Contact Info) Description 05/06/2021 Procedure Pass [facility], [address] [address] Social History Tobacco Use Types Packs/Day Years [...] Description 05/31/2025 2:00 AM EST Appointment [facility] [address] [place] [phone] Shakira Hand RN [address] [place] [address] [email or web address] 05/31/2025 11:30 AM EST Appointment [facility] [address] [place] [phone] Raisa Bautista [address] [place] [address] [email or web address] 06/04/2025 12:30 AM EST Appointment [facility] [address] [place] [phone] Shakira Hand, HUA [address] [place] [address] [email or web address] 06/05/2025 1:00 AM EST Appointment [facility] [address] [place] [phone] Raisa Bautista [address] [place] [address] [email or web address] 06/06/2025 12:30 AM EST Appointment [facility] [address] [place] [phone] Raisa Bautista [address] [place] [address] [email or web address] 06/12/2025 1:30 AM EST Appointment [facility] [address] [place] [phone] Shakira Hand, HUA [address] [place] [address] [email or web address] 06/12/2025 2:00 AM EST Appointment [facility] [address] [place] [phone] Lily Raisa M [address] [place] [address] [email or web address] 06/13/2025 2:00 PM EST Appointment [facility] [address] [place] [address] Antione Segura PA-C [address] [place] [address] [email or web address] 06/14/2025 1:00 AM EST Appointment [facility] [address] [place] [address] Lily, Raisa M [address] [place] [address] [email or web address] 06/19/2025 1:00 AM EST Appointment [facility] [address] [place] [address] Lily, Raisa M [address] [place] [address] [email or web address] 06/19/2025 2:00 AM EST Appointment [facility] [address] [place] [address] Shakira Hand, HUA [address] [place] [address] [email or web address] 06/21/2025 1:00 AM EST Appointment [facility] [address] [place] [address] Lily, Raisa M [address] [place] [address] 06/25/2025 9:30 AM EST Telemedicine [facility] [address] [place] [address] Jn Cardoza MD [address] [address] 06/26/2025 1:00 AM EST Appointment [facility] [address] [place] [address] Raisa Bautista [address] [place] [address] 06/27/2025 Appointment [facility] [address] [place] [phone] Shakira Hand RN [address] [place] [address] 06/28/2025 1:00 AM EST Appointment [facility] [address] [place] [address] Raisa Bautista [address] [place] [address] 07/03/2025 1:00 AM EST Appointment [facility] [address] [place] [phone] Raisa Bautista [address] [place] [address] 07/03/2025 1:00 PM EST Office Visit [facility] Pul[facility]ology[facility] All[facility] [address] [place] [address] Celso Akins MD [address] [place] [address] [phone] 07/04/2025 Appointment [facility] [address] [place] [address] Shakira Hand RN [address] [place] [address] 07/04/2025 11:20 AM EST Office Visit [facility] 40 [place] [address] Antione Segura PA-C [address] [place] [address] 07/05/2025 1:00 AM EST Appointment [facility] [address] [place] [phone] Raisa Bautista [address] [place] [address] 07/10/2025 1:00 AM EST Appointment [facility] [address] [place] [phone] Lily Raisa M [address] [place] [address] 07/11/2025 Appointment [facility] [address] [place] [address] Shakira Hand RN [address] [place] [address] 08/21/2025 10:30 AM EDT Appointment [facility] [address] [place] [address] Antione Segura PA-C [address] [place] [address] documented as of this encounter Visit Diagnoses Not on filedocumented in this encounter Additional Health Concerns Assessment Noted Time PHQ-2 Depression Total Score: 0 05/25/20 19 9:02 AM EST documented as of this encounter Care Teams Child And Adolescent Psychologist Relationship Specialty Start Date End Date Jennifer Duke, BUILDER BEAM [address] [place] [address] [email or web address] PCP - General Family Medicine 01/31/20 06/22/23 Sirisha Huertas FNP [address] [place] [address] [email or web address] PCP - General Nurse Practitioner 06/23/23 08/03/24 Liyah Patterson MD [address] [place] [address] [email or web address] PCP - General Family Medicine 08/04/24 10/11/24 Antione Segura PA-C [address] [place] [address] [email or web address] PCP - General Physician Shake Out Worker 10/12/24 Lang Germain MD [address] [place] [address] [email or web address] Insurance Assigned Provider 09/18/23 02/19/24 Jn Cardoza MD 22 [facility], 2nd [place] [address] [email or web address] Neurology 02/03/24 Denys Henriquez MD [address] [place] [address] [place] [address] Pulmonary Disease 02/03/24 Liyah Patterson MD [address] [place] [address] [email or web address] Insurance Assigned Provider 02/19/24 01/20/25 Rhett Cortez MD [address] [place] [address] [email or web address] Insurance Assigned Provider 01/20/25 documented as of this encounter Additional Source Comments The information contained in this document represents components of the legal health record. It is not the complete legal health record.[facility]
--- OUTSIDE RECORDS SUMMARY | 2025-05-29 20:10 | XMS_ITS | Encounter Summary ---
Author Organization [facility] Address [address] [facility] [address] [place] [address] Phone Care Team Providers Care Crowd Controller Name Role Phone Jn Cardoza MD Unavailable Denys Henriquez MD Unavailable Antione Segura PA-C Primary Care Provider [phone] Rhett Cortez MD Unavailable Encounter Details Date Type Department Care Team (Late st Contact Info) Description 05/29/2025 Episode Documentatio n Update [facility] [address] [place] [phone] Margy Rubalcava [address] [place] [address] [email or web address] Social History Tobacco Use Types Packs/Day Years [...] high school, GED, job training, learning the Kinyarw[place] language, technical skills, or developing parenting skills)? [...] Description 05/31/2025 2:00 AM EST Appointment [facility] [address] [place] [phone] Shakira Hand, HUA [address] [place] [address] 05/31/2025 11:30 AM EST Appointment [facility] [address] [place] [phone] Raisa Bautista [address] [place] [address] 06/04/2025 12:30 AM EST Appointment [facility] [address] [place] [phone] Shakira Hand RN [address] [place] [address] 06/05/2025 1:00 AM EST Appointment [facility] [address] [place] [phone] Raisa Bautista [address] [place] [address] 06/06/2025 12:30 AM EST Appointment [facility] [address] [place] [phone] Raisa Bautista [address] [place] [address] 06/12/2025 1:30 AM EST Appointment [facility] [address] [place] [phone] Shakira Hand, HUA [address] [place] [address] 06/12/2025 2:00 AM EST Appointment [facility] [address] [place] [phone] LilyRaisa M [address] [place] [address] 06/13/2025 2:00 PM EST Appointment [facility] [address] [place] [address] Antione Segura PA-C [address] [place] [address] 06/14/2025 1:00 AM EST Appointment [facility] [address] [place] [address] Lily, Raisa M [address] [place] [address] 06/19/2025 1:00 AM EST Appointment [facility] [address] [place] [phone] Lily, Raisa M [address] [place] [address] 06/19/2025 2:00 AM EST Appointment [facility] [address] [place] [address] Shakira Hand, HUA [address] [place] [address] 06/21/2025 1:00 AM EST Appointment [facility] [address] [place] [phone] Lily Raisa M [address] [place] [address] 06/25/2025 9:30 AM EST Telemedicine [facility] [address] [place] [address] Jn Cardoza MD [address] [address] 06/26/2025 1:00 AM EST Appointment [facility] [address] [place] [phone] Raisa Bautista [address] [place] [address] 06/27/2025 Appointment [facility] [address] [place] [phone] Shakira Hand RN [address] [place] [address] 06/28/2025 1:00 AM EST Appointment [facility] [address] [place] [phone] Raisa Bautista [address] [place] [address] 07/03/2025 1:00 AM EST Appointment [facility] [address] [place] [phone] Raisa Bautista [address] [place] [address] 07/03/2025 1:00 PM EST Office Visit [facility]ology[facility] [address] [place] [address] Celso Akins MD [address] [place] [address] [phone] 07/04/2025 Appointment [facility] [address] [place] [address] Shakira Hand RN [address] [place] [address] 07/04/2025 11:20 AM EST Office Visit [facility] [address] [place] [address] Antione Segura PA-C [address] [place] [address] 07/05/2025 1:00 AM EST Appointment [facility] [address] [place] [phone] Raisa Bautista [address] [place] [address] 07/10/2025 1:00 AM EST Appointment [facility] [address] [place] [address] Raisa Bautista [address] [place] [address] 07/11/2025 Appointment [facility] [address] [place] [address] Shakira Hand RN [address] [place] [address] 08/21/2025 10:30 AM EDT Appointment [facility] [address] [place] [address] Antione Segura PA-C [address] [place] [address] documented as of this encounter Visit Diagnoses Not on filedocumented in this encounter Additional Health Concerns Assessment Noted Time PHQ-9 Depression Total Score: 9 05/11/20 6:24 PM EST PHQ-2 Depression Total Score: 2 05/11/20 6:24 PM EST documented as of this encounter Care Teams Crowd Controller Relationship Specialty Start Date End Date Antione Segura PA-C [address] [place] [address] PCP - General Physician Airbrush Painter 10/12/24 Jn Cardoza MD [address] [place] [address], [address] [place] [address] Neurology 02/03/24 Denys Henriquez MD [address] [place] [address] [place] [address] Pulmonary Disease 02/03/24 Rhett Cortez MD [address] [place] [address] [email or web address] Insurance Assigned Provider 01/20/25 documented as of this encounter Additional Source Comments The information contained in this document represents components of the legal health record. It is not the complete legal health record.[facility]
--- OUTSIDE RECORDS SUMMARY | 2025-05-29 20:10 | XMS_ITS | Encounter Summary ---
Author Organization [facility] Address [address] [place] [address] Phone Care Team Providers Care Printed Circuit Board Panels Deburrer Name Role Phone Jn Cardoza MD Unavailable Denys Henriquez MD Unavailable Antione Segura PA-C Primary Care Provider [phone] Rhett Cortez MD Unavailable Encounter Details Date Type Department Care Team (Late st Contact Info) Description 03/28/2025 Procedure Pass [facility], Ct Scan - [address] [address] Social History Tobacco Use Types Packs/Day Years [...] Description 05/31/2025 2:00 AM EST Appointment [facility] [address] [place] [phone] Shakira Hand RN [address] [place] [address] 05/31/2025 11:30 AM EST Appointment [facility] [address] [place] [phone] Raisa Bautista [address] [place] [address] 06/04/2025 12:30 AM EST Appointment [facility] [address] [place] [phone] Shakira Hand RN [address] [place] [address] 06/05/2025 1:00 AM EST Appointment [facility] [address] [place] [phone] Lily Raisa M [address] [place] [address] 06/06/2025 12:30 AM EST Appointment [facility] [address] [place] [phone] Lily Raisa M [address] [place] [address] 06/12/2025 1:30 AM EST Appointment [facility] [address] [place] [phone] Shakira Hand, HUA [address] [place] [address] 06/12/2025 2:00 AM EST Appointment [facility] [address] [place] [phone] Lily Raisa Lawler [address] [place] [address] 06/13/2025 2:00 PM EST Appointment [facility] [address] [place] [address] Antione Segura PA-C [address] [place] [address] 06/14/2025 1:00 AM EST Appointment [facility] [address] [place] [phone] Lily Raisa Lawler [address] [place] [address] 06/19/2025 1:00 AM EST Appointment [facility] [address] [place] [phone] Lily Raisa Nuris [address] [place] [address] 06/19/2025 2:00 AM EST Appointment [facility] [address] [place] [phone] Shakira Hand, UHA [address] [place] [address] 06/21/2025 1:00 AM EST Appointment [facility] [address] [place] [phone] Lily Raisa M [address] [place] [address] [phone] 06/25/2025 9:30 AM EST Telemedicine [facility] [address] [facility] [address] [place] [address] Jn Cardoza MD [address] [address] 06/26/2025 1:00 AM EST Appointment [facility] [address] [place] [address] Raisa Bautista [address] [place] [address] 06/27/2025 Appointment [facility] [address] [place] [address] Shakira Hand RN [address] [place] [address] 06/28/2025 1:00 AM EST Appointment [facility] [address] [place] [address] Raisa Bautista [address] [place] [address] 07/03/2025 1:00 AM EST Appointment [facility] [address] [place] [address] Raisa Bautista [address] [place] [address] 07/03/2025 1:00 PM EST Office Visit [facility] Pulmonology[facility] [address] [place] [address] Celso Akins MD [address] [place] [address] [phone] 07/04/2025 Appointment [facility] [address] [place] [phone] Shakira Hand RN [address] [place] [address] 07/04/2025 11:20 AM EST Office Visit [facility] Primary Care Clinic 40 [place] [address] Antione Segura PA-C [address] [place] [address] 07/05/2025 1:00 AM EST Appointment [facility] [address] [place] [address] Raisa Bautista [address] [place] [address] 07/10/2025 1:00 AM EST Appointment [facility] [address] [place] [address] Raisa Bautista [address] [place] [address] 07/11/2025 Appointment [facility] [address] [place] [address] Shakira Hand RN [address] [place] [address] 08/21/2025 10:30 AM EDT Appointment [facility] [address] [place] [address] Antione Segura PA-C [address] [place] [address] documented as of this encounter Visit Diagnoses Not on filedocumented in this encounter Additional Health Concerns Assessment Noted Time PHQ-9 Depression Total Score: 23 025 3:04 PM EDT PHQ-2 Depression Total Score: 5 03/21/20 25 3:04 PM EDT documented as of this encounter Care Teams Printed Circuit Board Panels Deburrer Relationship Specialty Start Date End Date Antione Segura PA-C [address] [place] [phone] [email or web address] PCP - General Physician Warehouse Shipping Associate 10/12/24 Jn Cardoza MD 22 [facility], 2nd [place] [address] Neurology 02/03/24 Denys Henriquez MD [address] [place] [address] [place] [address] Pulmonary Disease 02/03/24 Rhett Cortez MD [address] [place] [address] [email or web address] Insurance Assigned Provider 01/20/25 documented as of this encounter Additional Source Comments The information contained in this document represents components of the legal health record. It is not the complete legal health record.[facility]
--- OUTSIDE RECORDS SUMMARY | 2025-05-29 20:10 | XMS_ITS | Encounter Summary ---
Author Organization [facility] Address [address] [address] Phone Care Team Providers Care Director Business Intelligence Name Role Phone Jn Cardoza MD Unavailable Denys Henriquez MD Unavailable Liyah Patterson MD Unavailable Antione Segura-C Primary Care Provider Rhett Cortez MD Unavailable Encounter Details Date Type Department Care Team (Late st Contact Info) Description 01/09/2025 Home Health Resumption of Care Planning [facility] [address] [place] [phone] Koki Simons, HUA [address] [place] [address] [email or web address] Social History Tobacco Use Types Packs/Day Years [...] Description 05/31/2025 2:00 AM EST Appointment [facility] [address] [place] [phone] Shakira Hand RN [address] [place] [address] 05/31/2025 11:30 AM EST Appointment [facility] [address] [place] [phone] Raisa Bautista [address] [place] [address] 06/04/2025 12:30 AM EST Appointment [facility] [address] [place] [phone] Shakira Hand RN [address] [place] [address] 06/05/2025 1:00 AM EST Appointment [facility] [address] [place] [phone] Raisa Bautista [address] [place] [address] 06/06/2025 12:30 AM EST Appointment [facility] [address] [place] [phone] Raisa Bautista [address] [place] [address] 06/12/2025 1:30 AM EST Appointment [facility] [address] [place] [address] Shakira Hand RN [address] [place] [address] 06/12/2025 2:00 AM EST Appointment [facility] [address] [place] [address] Lily Raisa M [address] [place] [address] 06/13/2025 2:00 PM EST Appointment [facility] [address] [place] [address] Antione Segura PA-C [address] [place] [email or web address] 06/14/2025 1:00 AM EST Appointment [facility] [address] [place] [address] LilyRaisa [address] [place] [address] 06/19/2025 1:00 AM EST Appointment [facility] [address] [place] [address] Lily Raisa Lawler [address] [place] [address] 06/19/2025 2:00 AM EST Appointment [facility] [address] [place] [address] Shakira Hand, HUA [address] [place] [address] 06/21/2025 1:00 AM EST Appointment [facility] [address] [place] [phone] LilyRaisa [address] [place] [address] 06/25/2025 9:30 AM EST Telemedicine [facility] Neurology Clinic [address] [place] [address] Jn Cardoza MD [address] [place] [address] 06/26/2025 1:00 AM EST Appointment [facility] [address] [place] [phone] LilyRaisa [address] [place] [address] 06/27/2025 Appointment [facility] [address] [place] [phone] Shakira Hand RN [address] [place] [address] 06/28/2025 1:00 AM EST Appointment [facility] [address] [place] [phone] LilyRaisa [address] [place] [address] 07/03/2025 1:00 AM EST Appointment [facility] [address] [place] [address] LilyRaisa [address] [place] [address] 07/03/2025 1:00 PM EST Office Visit [facility] Pulmonology, Allergy and Critical Care Medicine Clinic [address] [place] [address] Celso Akins MD [address] [place] [address] [phone] 07/04/2025 Appointment [facility] [address] [place] [address] Shakira Hand, HUA [address] [place] [address] 07/04/2025 11:20 AM EST Office Visit [facility] Primary [facility] 40 [place] [address] Antioen Segura PA-C [address] [place] [address] 07/05/2025 1:00 AM EST Appointment [facility] [address] [place], [place] [phone] Raisa Bautista [address] [place] [address] 07/10/2025 1:00 AM EST Appointment [facility] [address] [place] [address] Lily Raisa M [address] [place] [address] 07/11/2025 Appointment [facility] [address] [place], [place] [phone] Shakira Hand, HUA [address] [place] [address] 08/21/2025 10:30 AM EDT Appointment [facility] [address] [place] [address] Antione Segura PA-C [address] [place] [address] documented as of this encounter Visit Diagnoses Not on filedocumented in this encounter Additional Health Concerns Assessment Noted Time PHQ-9 Depression Total Score: 20 025 9:08 PM EDT PHQ-2 Depression Total Score: 6 12/28/19 25 9:08 PM EDT documented as of this encounter Care Teams Director Business Intelligence Relationship Specialty Start Date End Date Antione Segura PA-C [address] [place] [address] [email or web address] PCP - General Physician Straightedge Man 10/12/24 Jn Cardoza MD 22 [facility], 2nd [place] [address] Neurology 02/03/24 Denys Henriquez MD [address] [place] [address] [place] [address] Pulmonary Disease 02/03/24 Liyah Patterson MD 15 [facility] [address]. [address] [place] [address] [email or web address] Insurance Assigned Provider 02/19/24 01/20/25 Rhett Cortez MD 40 [place] [address] Insurance Assigned Provider 01/20/25 documented as of this encounter Additional Source Comments The information contained in this document represents components of the legal health record. It is not the complete legal health record.[facility]
--- OUTSIDE RECORDS SUMMARY | 2025-05-29 20:11 | XMS_ITS | Encounter Summary ---
Author Organization [facility] Address [address] [place] [address] [address] Phone Care Team Providers Care Viscose Cellar Worker Name Role Phone Jn Cardoza MD Unavailable Denys Henriquez MD Unavailable Antione Segura PA-C Primary Care Provider Rhett Cortez MD Unavailable Reason for Visit * Reason Onset Date Comments TCM Visit 04/10/2025 Needs appt Encounter Details Date Type Department Care Team (Late st Contact Info) Description 04/10/2025 Telephone [facility] [address] [place], [place] [phone] Antione Segura PA-C 40 [place] [address] [email or web address] TCM Visit (Needs appt ) [...] high school, GED, job training, learning the Faro[place] language, technical skills, or developing parenting skills)? [...] make today's appt has been readmitted to [facility] for exacerbation of COPD * Georgina Krause [...] Care Management New Patient: YES/NO: no Hospitalization Name:[facility] Discharge Date:04/09/2025 Reason for Visit+ Diagnosis: pt [...] date Additional Note (if applicable): [facility] Call Center CSS Agent (Please do not reply to this user, as this inbox is not monitored. Thank you.) Thank you. documented in this encounter Plan of Treatment Upcoming Encounters Date Type Department Care Team (Late st Contact Info) Description 05/31/2025 2:00 AM EST Appointment [facility] [address] [place] [address] Shakira Hand, HUA [address] [place] [address] [email or web address] 05/31/2025 11:30 AM EST Appointment [facility] [address] [place], [place] [phone] Raisa Bautista [address] [place] [address] [email or web address] 06/04/2025 12:30 AM EST Appointment [facility] [address] [place] [address] Shakira Hand, HUA [address] [place] [address] [email or web address] 06/05/2025 1:00 AM EST Appointment [facility] [address] [place] [phone] Raisa Bautista [address] [place] [address] [email or web address] 06/06/2025 12:30 AM EST Appointment [facility] [address] [place] [phone] Raisa Bautista [address] [place] [address] [email or web address] 06/12/2025 1:30 AM EST Appointment [facility] [address] [place] [phone] Shakira Hand, HUA [address] [place] [address] [email or web address] 06/12/2025 2:00 AM EST Appointment [facility] [address] [place] [phone] Raisa Bautista [address] [place] [address] [email or web address] 06/13/2025 2:00 PM EST Appointment [facility] [address] [place] [address] Antione Segura PA-C [address] [place] [phone] [email or web address] 06/14/2025 1:00 AM EST Appointment [facility] [address] [place] [phone] Raisa Bautista [address] [place] [address] 06/19/2025 1:00 AM EST Appointment [facility] [address] [place] [address] Raisa Bautista [address] [place] [address] 06/19/2025 2:00 AM EST Appointment [facility] [address] [place] [phone] Shakira Hand RN [address] [place] [address] 06/21/2025 1:00 AM EST Appointment [facility] [address] [place] [phone] Raisa Bautista [address] [place] [address] 06/25/2025 9:30 AM EST Telemedicine [facility]rology [facility] [address] [place] [address] Jn Cardoza MD [address] [place] [address], 2nd [place] [address] 06/26/2025 1:00 AM EST Appointment [facility] [address] [place] [address] Raisa Bautista [address] [place] [address] 06/27/2025 Appointment [facility] [address] [place] [address] Shakira Hand RN [address] [place] [address] 06/28/2025 1:00 AM EST Appointment [facility] [address] [place] [address] Raisa Bautista [address] [place] [address] 07/03/2025 1:00 AM EST Appointment [facility] [address] [place], [place] [phone]Raisa [address] [place] [phone] 07/03/2025 1:00 PM EST Office Visit [facility] Pulmonology, All[facility] [address] [place] [address] Celso Akins MD [address] [place] [address] 07/04/2025 Appointment [facility] [address] [place], [place] [phone] Shakira Hand RN [address] [place] [address] 07/04/2025 11:20 AM EST Office Visit [facility] 40 [place] [address] Antione Segura PA-C [address] [place] [address] 07/05/2025 1:00 AM EST Appointment [facility] [address] [place], [place] [phone] [address]Raisa [address] [place] [address] 07/10/2025 1:00 AM EST Appointment [facility] [address] [place] [address] Raisa Bautista [address] [place] [address] 07/11/2025 Appointment [facility] [address] [place] [address] Shakira Hand RN [address] [place] [address] 08/21/2025 10:30 AM EDT Appointment [facility] [address] [place] [address] Antione Segura PA-C [address] [place] [email or web address] documented as of this encounter Visit Diagnoses Not on filedocumented in this encounter Additional Health Concerns Assessment Noted Time PHQ-9 Depression Total Score: 23 025 3:04 PM EDT PHQ-2 Depression Total Score: 5 03/21/20 25 3:04 PM EDT documented as of this encounter Care Teams Viscose Cellar Worker Relationship Specialty Start Date End Date Antione Segura PA-C [address] [place] [address] [phone] [email or web address] PCP - General Physician Certified Orthotist/Pedorthist 10/12/24 Jn Cardoza MD 22 [facility], 2nd [place] [address] Neurology 02/03/24 Denys Henriquez MD [address] [place] [address] [place] [address] Pulmonary Disease 02/03/24 Rhett Cortez MD [address] [place] [address] [email or web address] Insurance Assigned Provider 01/20/25 documented as of this encounter Additional Source Comments The information contained in this document represents components of the legal health record. It is not the complete legal health record.[facility]
--- OUTSIDE RECORDS SUMMARY | 2025-05-29 20:11 | XMS_ITS | Encounter Summary ---
Author Organization [facility] Address [address] [place] [address] Drive [address] [place] [address] Phone Care Team Providers Care Cloth Examiner Hand Name Role Phone Jn Cardoza MD Unavailable Denys Henriquez MD Unavailable [phone] Antione Segura PA-C Primary Care Provider [phone] Rhett Cortez MD Unavailable Encounter Details Date Type Department Care Team (Late st Contact Info) Description 05/07/[address] [facility] Primary Care Clinic [address] [place], [place] [phone] Antione Segura PA-C [address] [place] [address] [email or web address] Social History Tobacco Use Types Packs/Day Years [...] EST Appointment [facility] [address] [place] [phone] Shakira Hand RN [address] [place] [address] 05/31/2025 11:30 AM EST Appointment [facility] [address] [place] [phone] Raisa Bautista [address] [place] [address] 06/04/2025 12:30 AM EST Appointment [facility] [address] [place] [phone] Shakira Hand RN [address] [place] [address] 06/05/2025 1:00 AM EST Appointment [facility] [address] [place] [phone] Raisa Bautista [address] [place] [address] 06/06/2025 12:30 AM EST Appointment [facility] [address] [place] [phone] Raisa Bautista [address] [place] [address] 06/12/2025 1:30 AM EST Appointment [facility] [address] [place] [phone] Shakira Hand, HUA [address] [place] [address] 06/12/2025 2:00 AM EST Appointment [facility] [address] [place] [phone] Lily Raisa M [address] [place] [address] 06/13/2025 2:00 PM EST Appointment [facility] [address] [place] [address] Antione Segura PA-C [address] [place] [address] 06/14/2025 1:00 AM EST Appointment [facility] [address] [place] [address] Lily, Raisa M [address] [place] [address] 06/19/2025 1:00 AM EST Appointment [facility] [address] [place] [phone] Lily, Raisa M [address] [place] [address] 06/19/2025 2:00 AM EST Appointment [facility] [address] [place] [phone] Shakira Hand, HUA [address] [place] [address] 06/21/2025 1:00 AM EST Appointment [facility] [address] [place] [address] Lily Raisa M [address] [place] [address] 06/25/2025 9:30 AM EST Telemedicine [facility] Neurology Clinic [address] [place] [address] Jn Cardoza MD [address] [address] 06/26/2025 1:00 AM EST Appointment [facility] 30 [place] [address] Raisa Bautista [address] [place] [address] 06/27/2025 Appointment [facility] [address] [place] [phone] Shakira Hand RN [address] [place] [address] 06/28/2025 1:00 AM EST Appointment [facility] [address] [place] [address] Raisa Bautista [address] [place] [address] 07/03/2025 1:00 AM EST Appointment [facility] [address] [place] [address] Raisa Bautista [address] [place] [address] 07/03/2025 1:00 PM EST Office Visit [facility] Pulmonology, Allergy and Critical Care Medicine Clinic [address] [place] [address] Celso Akins MD [address] [place] [address] [phone] 07/04/2025 Appointment [facility] [address] [place] [phone] Shakira Hand RN [address] [place] [address] 07/04/2025 11:20 AM EST Office Visit [facility] Primary Care Clinic [address] [place] [address] Antione Segura PA-C [address] [place] [address] 07/05/2025 1:00 AM EST Appointment [facility] [address] [place] [phone] Lily Raisa Nuris [address] [place] [address] 07/10/2025 1:00 AM EST Appointment [facility] [address] [place] [address] Raisa Bautista [address] [place] [address] 07/11/2025 Appointment [facility] [address] [place] [phone] Shakira Hand RN [address] [place] [address] 08/21/2025 10:30 AM EDT Appointment [facility] [address] [place] [address] Antione Segura PA-C [address] [place] [address] documented as of this encounter Visit Diagnoses Not on filedocumented in this encounter Additional Health Concerns Assessment Noted Time PHQ-9 Depression Total Score: 23 025 3:04 PM EDT PHQ-2 Depression Total Score: 5 03/21/20 25 3:04 PM EDT documented as of this encounter Care Teams Cloth Examiner Hand Relationship Specialty Start Date End Date Antione Segura PA-C [address] [place] [address] PCP - General Physician Hat Brusher Machine 10/12/24 Jn Cardoza MD 22 [facility], 2nd [place] [address] Neurology 02/03/24 Denys Henriquez MD [address] [place] [address] [place] [address] Pulmonary Disease 02/03/24 Rhett Cortez MD [address] [place] [address] Insurance Assigned Provider 01/20/25 documented as of this encounter Additional Source Comments The information contained in this document represents components of the legal health record. It is not the complete legal health record.[facility]
--- OUTSIDE RECORDS SUMMARY | 2025-05-29 20:11 | XMS_ITS | Encounter Summary ---
Author Organization [facility] Address [address] [place] [phone] Phone Care Team Providers Care Crime Data Specialist Name Role Phone Jn Cardoza MD Unavailable Denys Henriquez MD Unavailable [phone] Antione Segura PA-C Primary Care Provider [phone] Rhett Cortez MD Unavailable Encounter Details Date Type Department Care Team (Late st Contact Info) Description 05/03/2025 Lab Requisition [facility] [address] [place] [address] Nba Roberson MD 38 [facility], [address], [address] [place] [address] [email or web address] Peripheral vascular disease, unspecified Social History Tobacco [...] high school, GED, job training, learning the Lao language, technical skills, or developing parenting skills)? [...] Appointment [facility] [address] [place] [phone] Shakira Hand RN [address] [place] [address] 05/31/2025 11:30 AM EST Appointment [facility] [address] [place] [phone] Raisa Bautista [address] [place] [address] 06/04/2025 12:30 AM EST Appointment [facility] [address] [place] [phone] Shakira Hand RN [address] [place] [address] 06/05/2025 1:00 AM EST Appointment [facility] [address] [place] [phone] Raisa Bautista [address] [place] [address] 06/06/2025 12:30 AM EST Appointment [facility] [address] [place] [phone] Raisa Bautista [address] [place] [address] 06/12/2025 1:30 AM EST Appointment [facility] [address] [place] [phone] Shakira Hand RN [address] [place] [address] 06/12/2025 2:00 AM EST Appointment [facility] [address] [place] [phone] Raisa Bautista M [address] [place] [address] 06/13/2025 2:00 PM EST Appointment [facility] [address] [place] [address] Antione Segura PA-C [address] [place] [address] 06/14/2025 1:00 AM EST Appointment [facility] [address] [place] [address] LilyRaisa wasserman M [address] [place] [address] 06/19/2025 1:00 AM EST Appointment [facility] [address] [place] [address] Raisa Bautista M [address] [place] [address] 06/19/2025 2:00 AM EST Appointment [facility] [address] [place] [phone] Shakira Hand, HUA [address] [place] [address] 06/21/2025 1:00 AM EST Appointment [facility] [address] [place] [address] Raisa Bautista [address] [place] [address] 06/25/2025 9:30 AM EST Telemedicine [facility] Neurology Clinic [address] [place] [address] Jn Cardoza MD [address] [place] [address] 06/26/2025 1:00 AM EST Appointment [facility] [address] [place] [phone] LilyRaisa [address] [place] [address] 06/27/2025 Appointment [facility] [address] [place] [phone] Shakira Hand RN [address] [place] [address] 06/28/2025 1:00 AM EST Appointment [facility] [address] [place] [address] Raisa Bautista [address] [place] [address] 07/03/2025 1:00 AM EST Appointment [facility] [address] [place] [address] Raisa Bautista [address] [place] [address] 07/03/2025 1:00 PM EST Office Visit [facility] Pulmonology, Allergy and Critical Care Medicine Clinic [address] [place] [address] Celso Akins MD [address] [place] [address] 07/04/2025 Appointment [facility] [address] [place] [address] Shakira Hand, HUA [address] [place] [address] 07/04/2025 11:20 AM EST Office Visit [facility] Primary Care Clinic 40 [place] [address] Antione Segura PA-C [address] [place] [address] 07/05/2025 1:00 AM EST Appointment [facility] [address] [place] [address] LilyRais[address] [place] [address] 07/10/2025 1:00 AM EST Appointment [facility] [address] [place] [address] Raisa Bautista [address] [place] [address] 07/11/2025 Appointment [facility] [address] [place], [place] [phone] Shakira Hand RN [address] [place] [address] 08/21/2025 10:30 AM EDT Appointment [facility] [address] [place] [address] Antione Segura PA-C [address] [place] [address] documented as of this encounter Procedures Procedure Name Priority Date/Time Associated Diagnosis Comments COMPREHENSIVE METABOLIC PANEL (CMP) Today 05/03/2025 4:40 AM EST Peripheral vascular disease, unspecified CBC Today 05/03/2025 4:40 AM EST Peripheral vascular disease, unspecified documented in this encounter Results * (ABNORMAL) Comprehensive Metabolic Panel (CMP) (05/03/2025 4:40 AM EST) Sodium 140 136 - 145 mmol/L 05/03/2025 7:15 AM [facility] Potassium 3.7 3.4 - 5.1 mmol/L 05/03/2025 7:15 AM [facility] Chloride 98 98 - 107 mmol/L 05/03/2025 7:15 AM [facility] CO2 33(H) 20 - 31 mmol/L 05/03/2025 7:15 AM [facility] Anion Gap 9 3 - 17 mmol/L 05/03/2025 7:15 AM [facility] BUN 10 6 - 23 mg/dL 05/03/2025 7:15 AM [facility] Creatinine 0.50 0.50 - 1.00 mg/dL 05/03/2025 7:15 AM [facility] eGFR 106 >59 mL/min/1.7 3m2 05/03/2025 7:15 AM [facility] Comment:Estimated glomerular filtration rate calculated using the CKD-EPI refit equation. Glucose 124(H) 70 - 99 mg/dL 05/03/2025 7:15 AM [facility] Calcium 9.3 8.5 - 10.5 mg/dL 05/03/2025 7:15 AM [facility] AST 17 <33 U/L 05/03/2025 7:15 AM [facility] ALT 14 <34 U/L 05/03/2025 7:15 AM [facility] Alkaline Phosphatase 60 40 - 130 U/L 05/03/2025 7:15 AM [facility] Bilirubin, Total <0.2 0.0 - 1.2 mg/dL 05/03/2025 7:15 AM [facility] Total Protein 6.2(L) 6.4 - 8.3 g/dL 05/03/2025 7:15 AM [facility] Albumin 3.6 3.5 - 5.2 g/dL 05/03/2025 7:15 AM [facility] Globulin 2.6 1.9 - 4.1 g/dL 05/03/2025 7:15 AM [facility] Blood (Blood) 05/03/2025 4:4 0 AM EST 05/03/2025 6:06 AM EST us Nba Roberson MD LAB BLOOD BKR ORDERABLES Final R esult [facility] 30 [place], [place] [phone] * (ABNORMAL) CBC (05/03/2025 4:40 AM EST) WBC 8.32 4.00 - 11.00 K/uL 05/03/2025 6:44 AM [facility] RBC 3.33(L) 4.00 - 5.20 M/uL 05/03/2025 6:44 AM [facility] Hemoglobin 10.1(L) 12.0 - 16.0 g/dL 05/03/2025 6:44 AM [facility] Hematocrit 32.5(L) 36.0 - 46.0 % 05/03/2025 6:44 AM [facility] MCV 97.6 80.0 - 100.0 fL 05/03/2025 6:44 AM [facility] MCH 30.3 27.0 - 31.0 pg 05/03/2025 6:44 AM [facility] MCHC 31.1(L) 32.0 - 36.0 g/dL 05/03/2025 6:44 AM [facility] PLT 356 150 - 450 K/uL 05/03/2025 6:44 AM [facility] MPV 9.5 8.4 - 12.0 fL 05/03/2025 6:44 AM [facility] RDW-CV 15.5(H) 11.5 - 14.5 % 05/03/2025 6:44 AM [facility] Absolute NRBC 0.02(H) <=0.00 K cells/uL 05/03/2025 6:44 AM EST [facility] NRBC 0.2(H) <=0.0 /100 WBCs 05/03/2025 6:44 AM EST [facility] Blood (Blood) 05/03/2025 4:4 0 AM EST 05/03/2025 6:06 AM EST us Nba Roberson MD LAB BLOOD BKR ORDERABLES Final R esult [facility] [address] [place] [address] documented in this encounter Visit Diagnoses Diagnosis Peripheral vascular disease, unspecified documented in this encounter Additional Health Concerns Assessment Noted Time PHQ-9 Depression Total Score: 23 025 3:04 PM EDT PHQ-2 Depression Total Score: 5 03/21/20 25 3:04 PM EDT documented as of this encounter Care Teams Crime Data Specialist Relationship Specialty Start Date End Date Antione Segura PA-C [address] [place] [phone] [email or web address] PCP - General Physician Gel Coat Sprayer 10/12/24 Jn Cardoza MD [address] [place] [address], 2nd [place] [address] Neurology 02/03/24 Denys Henriquez MD [address] [place] [address] [place] [address] Pulmonary Disease 02/03/24 Rhett Cortez MD [address] [place] [address] [email or web address] Insurance Assigned Provider 01/20/25 documented as of this encounter Additional Source Comments The information contained in this document represents components of the legal health record. It is not the complete legal health record.[facility]
--- OUTSIDE RECORDS SUMMARY | 2025-05-29 20:11 | XMS_ITS | Encounter Summary ---
Author Organization [facility] Address [address] [place] [address] Drive [address] [place] [address] Phone Care Team Providers Care Director Diversity Name Role Phone Jn Cardoza MD Unavailable Denys Henriquez MD Unavailable Antione Segura PA-C Primary Care Provider Rhett Cortez MD Unavailable Encounter Details Date Type Department Care Team (Late st Contact Info) Description 05/07/2025 Telephone [facility] Primary Care Clinic [address] [place], [place] [phone] Antione Segura PA-C [address] [place] [address] [email or web address] Social History Tobacco Use [...] Appointment [facility] [address] [place] [phone] Shakira Hand RN [address] [place] [address] 05/31/2025 11:30 AM EST Appointment [facility] [address] [place] [phone] Raisa Bautista [address] [place] [address] 06/04/2025 12:30 AM EST Appointment [facility] [address] [place] [phone] Shakira Hand RN [address] [place] [address] 06/05/2025 1:00 AM EST Appointment [facility] [address] [place] [phone] Raisa Bautista [address] [place] [address] 06/06/2025 12:30 AM EST Appointment [facility] [address] [place] [phone] Raisa Bautista [address] [place] [address] 06/12/2025 1:30 AM EST Appointment [facility] [address] [place] [phone] Shakira Hand, HUA [address] [place] [address] 06/12/2025 2:00 AM EST Appointment [facility] [address] [place] [phone] Lily Raisa M [address] [place] [address] 06/13/2025 2:00 PM EST Appointment [facility] P[facility] Lab [address] [place] [address] Antione Segura PA-C [address] [place] [address] 06/14/2025 1:00 AM EST Appointment [facility] [address] [place] [address] Lily, Raisa M [address] [place] [address] 06/19/2025 1:00 AM EST Appointment [facility] [address] [place] [phone] Lily, Raisa M [address] [place] [address] 06/19/2025 2:00 AM EST Appointment [facility] [address] [place] [phone] Shakira Hand, HUA [address] [place] [address] 06/21/2025 1:00 AM EST Appointment [facility] [address] [place] [address] Lily Raisa M [address] [place] [address] 06/25/2025 9:30 AM EST Telemedicine [facility] Neurology Clinic [address] [place] [address] Jn Cardoza MD [address] [address] 06/26/2025 1:00 AM EST Appointment [facility] 30 [place] [phone] Raisa Bautista [address] [place] [address] 06/27/2025 Appointment [facility] [address] [place] [phone] Shakira Hand RN [address] [place] [address] 06/28/2025 1:00 AM EST Appointment [facility] [address] [place] [address] Raisa Bautista [address] [place] [address] 07/03/2025 1:00 AM EST Appointment [facility] [address] [place] [address] Raisa Bautista [address] [place] [address] 07/03/2025 1:00 PM EST Office Visit [facility] Pulmonology, Allergy and Critical Care Medicine Clinic [address] [place] [address] Celso Akins MD [address] [place] [phone] 07/04/2025 Appointment [facility] [address] [place] [address] Shakira Hand RN [address] [place] [address] 07/04/2025 11:20 AM EST Office Visit [facility] Primary Care Clinic [address] [place] [address] Antione Segura PA-C [address] [place] [address] 07/05/2025 1:00 AM EST Appointment [facility] [address] [place] [phone] Lily Raisa Nuris [address] [place] [address] 07/10/2025 1:00 AM EST Appointment [facility] [address] [place] [address] Riasa Bautista [address] [place] [address] 07/11/2025 Appointment [facility] [address] [place] [phone] Shakira Hand RN [address] [place] [address] 08/21/2025 10:30 AM EDT Appointment [facility] [address] [place] [address] Antione Segura PA-C [address] [place] [address] documented as of this encounter Visit Diagnoses Not on filedocumented in this encounter Additional Health Concerns Assessment Noted Time PHQ-9 Depression Total Score: 23 025 3:04 PM EDT PHQ-2 Depression Total Score: 5 03/21/20 25 3:04 PM EDT documented as of this encounter Care Teams Director Diversity Relationship Specialty Start Date End Date Antione Segura PA-C [address] [place] [address] PCP - General Physician Audio Visual Technician 10/12/24 Jn Cardoza MD 22 [facility], 2nd [place] [address] Neurology 02/03/24 Denys Henriquez MD [address] [place] [address] [place] [address] Pulmonary Disease 02/03/24 Rhett Cortez MD [address] [place] [address] Insurance Assigned Provider 01/20/25 documented as of this encounter Additional Source Comments The information contained in this document represents components of the legal health record. It is not the complete legal health record.[facility]
[2025-05-29 20:18] VITALS: BP 153/68; PULSE 74; RESP 20; TEMP 36.6; O2SAT 98
[2025-05-29 20:42] LABS: Troponin-I High Sensitivity 6.8 ng/L (<3.5-17.0)
[2025-05-29 21:00] VITALS: PULSE 105; RESP 26; O2SAT 97
[2025-05-29] MEDS: Albuterol Sulfate 5 MG, Albuterol/Iprat 2.5/0.5MG 3 ML 3 ML INHALE (21:01)
[2025-05-29 21:41] VITALS: BP 135/71; PULSE 74; RESP 18; TEMP 36.8; O2SAT 94
== END 2025-05-29 23:04 | disposition home or self-care (01) ==
PROVIDERS: Nurse Practitioner; Emergency Provider Emergency Medicine; PCP Physician Assistant Surgical
DX: J44.1 Chronic obstructive pulmonary disease with (acute) exacerbation (principal); R06.02 Shortness of breath; Z03.818 Encounter for observation for suspected exposure to other biological agents ruled out; G47.33 Obstructive sleep apnea (adult) (pediatric); E78.5 Hyperlipidemia, unspecified; I10 Essential (primary) hypertension; Z99.89 Dependence on other enabling machines and devices; Z99.81 Dependence on supplemental oxygen; Z87.891 Personal history of nicotine dependence; Z79.51 Long term (current) use of inhaled steroids; Z79.899 Other long term (current) drug therapy
CPT/HCPCS: 36415; 71045; 80048; 83735; 83880; 84484; 85025; 85610; 87637; 93005; 94640; 96374; 99284; J2919

== ENCOUNTER → 2025-05-29 16:54 | Outpatient (BNV) | payer BC, SELFPAY | PROVIDERS: Emergency Provider Emergency Medicine; PCP Physician Assistant Surgical; Visit Provider Internal Medicine Cardiovascular Disease | DX: R06.02 Shortness of breath (principal) | CPT/HCPCS: 93010 ==

== ENCOUNTER → 2025-05-29 16:54 | Outpatient (BNV) | payer BC, SELFPAY | PROVIDERS: PCP Physician Assistant Surgical; Visit Provider Radiology Diagnostic Radiology | DX: R06.02 Shortness of breath (principal) | CPT/HCPCS: 71045 ==

== ENCOUNTER 2025-06-01 09:33 | Inpatient (IN) | payer BC, SELFPAY ==
--- OUTSIDE RECORDS SUMMARY | 2025-05-17 10:30 | XMS_ITS | Encounter Summary ---
Author Organization [facility] Address [address] [place] [phone] Phone Care Team Providers Care Supervisor Dials Name Role Phone Jn Cardoza MD Unavailable Denys Henriquez MD Unavailable Antione Segura PA-C Primary Care Provider Rhett Cortez MD Unavailable Reason for Visit * Auth/Cert (Routine) Specialty Diagnoses / Procedures Referred By Dary smith Referred To Contact Referral ID Status Reason Start Date Expiration Date Visits Re quested Visits Authorized [id number] 1 1 Encounter Details Date Type Department Care Team (Late st Contact Info) Description 05/17/2025 10:30 AM EST Home Care Visit [facility] [address] [place] [phone] Shakira Hand, HUA [address] [place], [place] [phone] [email or web address] SN OASIS START OF CARE (SOC) Social [...] Care Team (Late st Contact Info) Description 06/04/2025 12:30 AM EST Appointment [facility] [address] [place] [address] Shakira Hand, RN [address] [place] [address] 06/05/2025 1:00 AM EST Appointment [facility] [address] [place] [address] Raisa Bautista [address] [place] [address] 06/06/2025 12:30 AM EST Appointment [facility] [address] [place] [address] Raisa Bautista [address] [place] [address] 06/12/2025 1:30 AM EST Appointment [facility] [address] [place] [address] Shakira Hand, HUA [address] [place] [address] 06/12/2025 2:00 AM EST Appointment [facility] [address] [place] [phone] Raisa Bautista [address] [place] [address] 06/13/2025 2:00 PM EST Hospital Encounter [facility] [address] [place] [phone] Antione Segura PA-C [address] [place] [address] 06/14/2025 1:00 AM EST Appointment [facility] [address] [place] [address] Raisa Bautista M [address] [place] [address] 06/19/2025 1:00 AM EST Appointment [facility] [address] [place] [address] Raisa Bautista [address] [place] [address] 06/19/2025 2:00 AM EST Appointment [facility] [address] [place] [address] Shakira Hand RN [address] [place] [address] 06/21/2025 1:00 AM EST Appointment [facility] [address] [place] [address] Raisa Bautista [address] [place] [address] 06/25/2025 9:30 AM EST Telemedicine [facility] Neurology Clinic [address] [place] [address] Jn Cardoza MD [address] [address] 06/26/2025 1:00 AM EST Appointment [facility] [address] [place] [phone] Lily Raisa Nuris [address] [place] [address] 06/27/2025 Appointment [facility] [address] [place] [phone] Shakira Hand RN [address] [place] [address] 06/28/2025 1:00 AM EST Appointment [facility] [address] [place] [phone] Lily Raisa Lawler [address] [place] [address] 07/03/2025 1:00 AM EST Appointment [facility] [address] [place] [phone] Lily Raisa Lawler [address] [place] [address] 07/03/2025 1:00 PM EST Office Visit [facility] Pulmonology, Allergy and Critical Care Medicine Clinic [address] [place] [address] Celso Akins MD [address] [place] [address] [phone] 07/04/2025 Appointment [facility] [address] [place] [phone] Shakira Hand, HUA [address] [place] [address] 07/04/2025 11:20 AM EST Office Visit [facility] Primary Care Clinic [address] [place] [address] Antione Segura PA-C [address] [place] [address] 07/05/2025 1:00 AM EST Appointment [facility] [address] [place] [phone] Lily Raisa M [address] [place] [address] 07/10/2025 1:00 AM EST Appointment [facility] [address] [place] [phone] Lily, Raisa [address] [address] 07/11/2025 Appointment [facility] [address] [place], [place] [phone] Shakira Hand RN [address] [place] [address] 08/21/2025 10:30 AM EDT Appointment [facility] [address] [place] [address] Antione Segura PA-C [address] [place] [address] documented as of this encounter Visit Diagnoses Not on filedocumented in this encounter Additional Health Concerns Assessment Noted Time PHQ-9 Depression Total Score: 9 05/11/20 25 6:24 PM EST PHQ-2 Depression Total Score: 2 05/11/20 25 6:24 PM EST documented as of this encounter Home Health Visit - Care Plan Visit Details Visit Type -SN OASIS START O F CARE (SOC) Discipline -Shelter Problems Problem Description Start Date [...] list as needed. Problem:HH - Medication Management Goal: - Safe medication management, avoid unnecessary harm related to medication errors and/or interactions Performed - Complete medication review every visit and medication reconciliation as indicated. Pharmacy information: Description: [facility] Problem: - Medication Management Goal: - Safe medication management, avoid unnecessary harm related to medication errors and/or interactions Performed - Focus of care, teaching completed and plan for next visit Problem: - Focus of Care and Teaching Goal: - Communication and collaboration to achieve patient goals Performed Primary Clinical Focus this Visit & Instruction Provided: PT WITH SEVERAL HOSPITALIZATIONS OVER PAST MONTH. ACUTE HYPOXIC RESPIRATORY FAILURE. COPD AND CHF EXACERBATIONS, TRIGEMINAL NUERALGIA. WAS AT [facility] FOR STR. ON 05/13 PT HAVING INCREASE SOB AND LE SWELLING. ON CONTINOUS 1-3L O2 NC. HYPERLIPIDEMIA, CVA, NEPHROLITHIASIS, CHF AORTIC STENOSIS, OBESITY, CHRONIC PAIN, OXYCODONE, HTN. REFERRAL MADE TO PULMONARY AT [facility]. PT SAW HER PCP YESTERDAY. WILL BE STARTING ON LASIX FOR EDEMA/FLUID MANAGE MENT. WAS ADVISED TO MONITOR BP DAILY. PT A/OX3, REPORTS HER MEDICATIONS WERE ORGANIZED IN PILL BOXES AND IS ABLE TO RECALL THE NEW MEDICATIONS ADDED TO REGIMEN. PREDNISONE AND ANTIBIOTIC. SOB WITH EXERTION, IMPAIRED BALANCE, WEAKNESS, DIZZINESS. USES TH E WALL FOR SUPPORT WHEN AMBULATING. LIVES [...] and use and maintenance of smoke detectors Problem:HH - Standard of Care Goal:HH - [...] Performed documented in this encounter Care Teams Supervisor Dials Relationship Specialty Start Date End Date Antione Segura PA-C [address] [place] [address] [email or web address] PCP - General Physician Rubber Curer 10/12/24 Jn Cardoza MD [address] [place] [address], [address] [place] [address] [email or web address] Neurology 02/03/24 Denys Henriquez MD [address] [place] [address] [place] [address] Pulmonary Disease 02/03/24 Rhett Cortez MD [address] [place] [address] [email or web address] Insurance Assigned Provider 01/20/25 documented as of this encounter Additional Source Comments The information contained in this document represents components of the legal health record. It is not the complete legal health record.[facility]
--- OUTSIDE RECORDS SUMMARY | 2025-05-28 01:30 | XMS_ITS | Encounter Summary ---
Author Organization [facility] Address [address] [place] [address] Phone Care Team Providers Care Tax Evaluator Name Role Phone Jn Cardoza MD Unavailable Denys Henriquez MD Unavailable Antione Segura PA-C Primary Care Provider [phone] Rhett Cortez MD Unavailable Reason for Visit * Auth/Cert (Routine) Specialty Diagnoses / Procedures Referred By Dary smith Referred To Contact Referral ID Status Reason Start Date Expiration Date Visits Re quested Visits Authorized [id number] 1 1 Encounter Details Date Type Department Care Team (Late st Contact Info) Description 05/28/2025 1:30 AM EST Home Care Visit [facility] [address] [place] [phone] Rich Mariscal LPN [address] [place] [address] PHYSICAL SCIENCES PROFESSOR HOME VISIT Social History Tobacco Use Types [...] Sign Reading Time Taken Comments Blood Pressure 144/76 05/28/2025 1:13 PM EST Pulse 78 05/28/2025 1:13 PM EST Temperature 36.3 C (97.4 F) 05/28/2025 1:13 PM EST Respiratory Rate 20 05/28/2025 1:13 PM EST Oxygen Saturation 94% 05/28/2025 1:13 PM EST Inhaled Oxygen Concentration - - Weight - - Height - - Body Mass Index - - documented in this encounter Plan of Treatment Upcoming Encounters Date Type Department Care Team (Late st Contact Info) Description 06/04/2025 12:30 AM EST Appointment [facility] [address] [place] [address] Shakira Hand, HUA [address] [place] [address] 06/05/2025 1:00 AM EST Appointment [facility] [address] [place] [address] Raisa Bautista [address] [place] [address] 06/06/2025 12:30 AM EST Appointment [facility] [address] [place] [address] Raisa Bautista [address] [place] [address] 06/12/2025 1:30 AM EST Appointment [facility] [address] [place] [phone] Shakira Hand, HUA [address] [place] [address] 06/12/2025 2:00 AM EST Appointment [facility] [address] [place] [phone] Lily, Raisa M [address] [place] [address] 06/13/2025 2:00 PM EST Hospital Encounter [facility] [address] [place] [address] Antione Segura PA-C 40 [place] [address] 06/14/2025 1:00 AM EST Appointment [facility] [address] [place] [address] Lily, Raisa M [address] [place] [address] 06/19/2025 1:00 AM EST Appointment [facility] [address] [place] [phone] Raisa Bautista M [address] [place] [address] 06/19/2025 2:00 AM EST Appointment [facility] [address] [place] [phone] Shakira Hand, HUA [address] [place] [address] 06/21/2025 1:00 AM EST Appointment [facility] [address] [place] [address] Raisa Bautista M [address] [place] [address] 06/25/2025 9:30 AM EST Telemedicine [facility] [address] [place] [address] Jn Cardoza MD [address] [address] 06/26/2025 1:00 AM EST Appointment [facility] [address] [place] [phone] Raisa Bautista [address] [place] [address] 06/27/2025 Appointment [facility] [address] [place] [phone] Shakira Hand RN [address] [place] [address] 06/28/2025 1:00 AM EST Appointment [facility] [address] [place] [phone] Lily Raisa M [address] [place] [address] 07/03/2025 1:00 AM EST Appointment [facility] [address] [place] [phone] Lily Raisa M [address] [place] [address] 07/03/2025 1:00 PM EST Office Visit [facility] Pulmonology, All[facility] [address] [place] [address] Celso Akins MD [address] [place] [phone] 07/04/2025 Appointment [facility] [address] [place] [phone] Shakira Hand RN [address] [place] [address] 07/04/2025 11:20 AM EST Office Visit [facility] [address] [place] [address] Antione Segura PA-C [address] [place] [address] 07/05/2025 1:00 AM EST Appointment [facility] [address] [place] [phone] Lily Raisa M [address] [place] [address] 07/10/2025 1:00 AM EST Appointment [facility] [address] [place] [phone] Lily Raisa Nuris [address] [place] [address] 07/11/2025 Appointment [facility] [address] [place] [address] Shakira Hand RN [address] [place] [address] 08/21/2025 10:30 AM EDT Appointment [facility] [address] [place] [address] Antione Segura PA-C [address] [place] [address] documented as of this encounter Visit Diagnoses Not on filedocumented in this encounter Additional Health Concerns Assessment Noted Time PHQ-9 Depression Total Score: 9 05/11/20 25 6:24 PM EST PHQ-2 Depression Total Score: 2 05/11/20 25 6:24 PM EST documented as of this encounter Home Health Visit - Care Plan Visit Details Visit Type -PHYSICAL SCIENCES PROFESSOR HOME VISIT Discipline -Penitentiary Problems Problem Description Start Date [...] at bases, SOB while at rest and ambulating, continues on 1L-3L of O2. c/o dizziness occasionally no recent falls noted. PCP f/u ap pt tomorrow 8am. New buckle sewer appt 07/[address] Akins Will continue to monitor and maintain safety Instruction Provided to: patient Response to Instruction/Teaching: Is partially able to teach back topics as evidenced by verbal recall. Plan f or Next Visit Specific Focus & Education Needed: CVP assessment, Resp assessment New Orders: none Updated Discharge Plan: [...] Performed documented in this encounter Care Teams Tax Evaluator Relationship Specialty Start Date End Date Antione Segura PA-C [address] [place] [address] PCP - General Physician Byproducts Operator 10/12/24 Jn Cardoza MD [address] [place] [address], 2nd [place] [address] Neurology 02/03/24 Denys Henriquez MD [address] [place] [address] [place] [address] Pulmonary Disease 02/03/24 Rhett Cortez MD 40 [place] [address] [email or web address] Insurance Assigned Provider 01/20/25 documented as of this encounter Additional Source Comments The information contained in this document represents components of the legal health record. It is not the complete legal health record.[facility]
--- OUTSIDE RECORDS SUMMARY | 2025-05-28 13:30 | XMS_ITS | Encounter Summary ---
Author Organization [facility] Address [address] [place] [address] Phone Care Team Providers Care Wirer Street Light Name Role Phone Jn Cardoza MD Unavailable Denys Henriquez MD Unavailable Antione Segura PA-C Primary Care Provider [phone] Rhett Cortez MD Unavailable Reason for Visit * Auth/Cert (Routine) Specialty Diagnoses / Procedures Referred By Dary smith Referred To Contact Referral ID Status Reason Start Date Expiration Date Visits Re quested Visits Authorized [id number] 1 1 Encounter Details Date Type Department Care Team (Late st Contact Info) Description 05/28/2025 1:30 PM EST Home Care Visit [facility] [address] [place] [phone] Raisa Bautista [address], [place] [phone] [email or web address] GAS FITTER APPRENTICE HOME VISIT Social History Tobacco Use Types [...] Description 06/04/2025 12:30 AM EST Appointment [facility] [address] [place] [phone] Shakira Hand RN [address] [place] [address] 06/05/2025 1:00 AM EST Appointment [facility] [address] [place] [address] Raisa Bautista [address] [place] [address] 06/06/2025 12:30 AM EST Appointment [facility] [address] [place] [address] Raisa Bautista [address] [place] [address] 06/12/2025 1:30 AM EST Appointment [facility] [address] [place] [phone] Shakira Hand RN [address] [place] [address] 06/12/2025 2:00 AM EST Appointment [facility] [address] [place] [phone] Raisa Bautista [address] [place] [address] 06/13/2025 2:00 PM EST Hospital Encounter [facility] [address] [place] [address] Antione Segura PA-C [address] [place] [address] [email or web address] 06/14/2025 1:00 AM EST Appointment [facility] [address] [place] [phone] Raisa Bautista [address] [place] [address] 06/19/2025 1:00 AM EST Appointment [facility] [address] [place] [phone] Raisa Bautista [address] [place] [address] 06/19/2025 2:00 AM EST Appointment [facility] [address] [place] [phone] Shakira Hand RN [address] [place] [address] 06/21/2025 1:00 AM EST Appointment [facility] [address] [place] [address] Raisa Bautista [address] [place] [address] 06/25/2025 9:30 AM EST Telemedicine [facility] Neurology Clinic [address] [place] [address] Jn Cardoza MD [address] [facility], 2nd [place] [address] 06/26/2025 1:00 AM EST Appointment [facility] [address] [place] [address] Raisa Bautista [address] [place] [address] 06/27/2025 Appointment [facility] [address] [place] [address] Shakira Hand RN [address] [place] [address] 06/28/2025 1:00 AM EST Appointment [facility] [address] [place] [address] Raisa Bautista [address] [place] [address] 07/03/2025 1:00 AM EST Appointment [facility] [address] [place], [place] [phone] Raisa Bautista [address] [place] [address] 07/03/2025 1:00 PM EST Office Visit [facility] Pulmonology, Allergy and Critical Care Medicine Clinic [address] [place] [address] Celso Akins MD [address] [place] [address] 07/04/2025 Appointment [facility] [address] [place] [phone] Shakira Hand RN [address] [place] [address] 07/04/2025 11:20 AM EST Office Visit [facility] Primary Care Clinic [address] [place] [address] Antione Segura PA-C [address] [place] [address] 07/05/2025 1:00 AM EST Appointment [facility] [address] [place] [address] LilyJairoumesh Lawler [address] [place] [address] 07/10/2025 1:00 AM EST Appointment [facility] [address] [place] [phone] Lily Raisa [address] [address] 07/11/2025 Appointment [facility] [address] [place] [phone] Shakira Hand RN [address] [place] [address] 08/21/2025 10:30 AM EDT Appointment [facility] [address] [place] [address] Antione Segura PA-C [address] [place] [address] [email or web address] documented as of this encounter Visit Diagnoses Not on filedocumented in this encounter Additional Health Concerns Assessment Noted Time PHQ-9 Depression Total Score: 9 05/11/20 25 6:24 PM EST PHQ-2 Depression Total Score: 2 05/11/20 25 6:24 PM EST documented as of this encounter Home Health Visit - Care Plan Visit Details Visit Type -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 FITTER APPRENTICE HOME VISIT Discipline -Home Health Aide Problems [...] changes to note HH - Medication reminders Problem: - Home [...] Performed documented in this encounter Care Teams Wirer Street Light Relationship Specialty Start Date End Date Antione Segura PA-C [address] [place] [address] [email or web address] PCP - General Physician Safety And Health Consultant 10/12/24 Jn Cardoza MD [address] [place] [address], 2[address] [place] [address] Neurology 02/03/24 Denys Henriquez MD [address] [place] [address] [place], [place] [phone] Pulmonary Disease 02/03/24 Rhett Cortez MD [address] [place] [address] Insurance Assigned Provider 01/20/25 documented as of this encounter Additional Source Comments The information contained in this document represents components of the legal health record. It is not the complete legal health record.[facility]
--- OUTSIDE RECORDS SUMMARY | 2025-05-29 08:20 | XMS_ITS | Encounter Summary ---
Author Organization [facility] Address [facility] [address] [place] [phone] Phone Care Team Providers Care Laborer Syrup Machine Name Role Phone Jn Cardoza MD Unavailable Denys Henriquez MD Unavailable Antione Segura PA-C Primary Care Provider Rhett Cortez MD Unavailable Reason for Visit * Reason Comments Follow Up Visit 2 weeks (around 05/14) for Recheck Encounter Details Date Type Department Care Team (Late st Contact Info) Description 05/29/2025 8:20 AM EST Office Visit [facility] [address], [place] [phone] Antione Segura PA-C [address], [place] [phone] [email or web address] Acute on chronic hypoxic respiratory failure (Primary Dx) Social History Tobacco Use Types [...] high school, GED, job training, learning the Filipino language, technical skills, or developing parenting skills)? [...] Sign Reading Time Taken Comments Blood Pressure 122/64 05/29/2025 8:05 AM EST Pulse 88 05/29/2025 8:05 AM EST Temperature - - Respiratory Rate 29 05/29/2025 8:05 AM EST Oxygen Saturation 97% 05/29/2025 8:05 AM EST 3L Inhaled Oxygen Concentration - - Weight 100.2 kg (221 lb) 05/29/2025 8:05 AM EST Height 156.2 cm (5' 1.5 ) 05/29/2025 8:05 AM EST Body Mass Index 41.09 05/29/2025 8:05 AM EST documented in this encounter Progress Notes * Antione Segura PA-C - 05/29/2025 8:20 AM EST FOLLOW UP Subjective Zulma Constantino is a 60 y.o. female. History of Present Illness Patient here to follow-up on her acute on chronic respiratory failure. Patient was seen last in the office for TCM on 05/16/2025. Recap 60-year-old female with a past medical history of COPD/asthma on 1-3 liters via nasal cannula, hyperlipidemia, CVA, nephrolithiasis, CHF, aortic stenosis obesity, chronic pain on oxycodone, hypertension who presents today for TCM. Patient mentions that she has had several hospitalizations since February with 1 being for several daysback on April 20 through April 25 for acute hypoxic respiratory failure secondary to COPD and CHF exacerbations. During that timeframe it was recommended that the patient to go to short-term rehab and therefore went to [facility]. She remained at [facility] until the Wednesday before when she was discharged home. Upon returning home patient mentions that she had been doing relatively well until 05/13 where she started having increased shortness of breath and lower extremity swelling. At that time she ended up getting transported back to [facility] where she was found to have heart failure and COPD exacerbation. During that admission patient was given Lasix 40mg IV twice daily, she was placed on doxycycline 100 mg p.o. twice daily and was started on Solu-Medrol then transition to prednisone 60 mg tapering dose on the day of discharge on 05/15/2025. Howeverpatient has been off of the Lasix as she mention her blood pressure did bottom out during her hospit al stay however she was found to have decreased JVD and crackles in her lungs after receiving her IV Lasix. However upon this admission she also underwent an echocardiogram which showed aortic stenosis. She has since been discharged back home in the care of her family with VNA services to admit karla 05/17. Since her most recent hospital stay patient has been continuing on the doxycycline 100 mg p.o. daily and her prednisone taper. We had a long discussion with regards to the trajectory of her shortness of breath. I am concerned that the patient is continuing to have these cycles and she admitted that she has had over 30 admissions to the hospital within the last year and a half. Some of these admissions have been dual diagnosis such as acute CHF and COPD exacerbation. Some have been 1 orthe other. Of note since her last hospital stay patient has not been on her Lasix as secondary to an episode of hypotension. We had a long discussion with regards to holding her afternoon dose of herverapamil as she uses this for her hypertension and replace it with Lasix to help with lower extremity edema and to try to help with some of her shortness of breath. We also discussed about a second opinion with pulmonary as patient has had several admissions within the last 3 months but the last time she saw her engineering lecturer it was back over the summer. Patient has had several echocardiograms which has shown aortic stenosis and it appears that this has since worsened which is also contributing to her shortness of breath and dizzy episodes that she is currently experiencing. She does have afollow-up scheduled with cardiology the next week or 2. She also mentions that it takes a lot out of her to take a shower. I did ask about if there was a chairlift that could help her getting to the bathroom. However she disclosed to mean that anything extra in payments as she would not be able to use I did explain that sometimes this is covered under insurance if medically needed. Patient was advised to continue her doxycycline 100 mg p.o. twice daily for its entirety. She was advised to continue her prednisone taper as directed. I had placed her back on her Lasix 20 mg daily however I have asked her to hold her afternoon dose of her verapamil therefore she will only take her verapamil once daily and continue her losartan. She continues to experience dyspnea, particularly during ambulation. An appointment with Dr. Simmons scheduled for 07/03/2025, and her engineering lecturer has deferred any clearance until after this consultation. Significant discomfort and fatigue are reported, attributed to poor sleep quality due to the inability to use her CPAP machine because of dental issues. After completing her course of prednisone, she notes an improvement in walking distance, although at a slower pace, and requires the use of a rescue inhaler upon reaching her destination. Previously prescribed Lasix for a duration of 7 days provided some relief, but no change in the edema around her ankles is observed. She has been informed that her insurance will only cover 5 days of paid leave, with any additional leave being unpaid, and has utilized 7 days of leave thus far. She has been advised to contact her customer assistance representative regarding this matter. Primarily, she has been either hospitalized or at home, with the exception of a few days. Concerns are expressed about the financial burden of medical expenses, including co-pays and deductibles, and the potential impact on her 's decision to retire.Currently, she is covered under her 's insurance policy. Information has been provided that she may qualify for [employer] due to her disability, which would provide coverage for medical expenses. Additionally, she may be eligible for fuel and electrical assistance due to her oxygen dependency, and has been advised to contact [place] for further information regarding these resources. Review of Systems Respiratory: Positive for shortness of breath. Past Medical History: Diagnosis Date Anxiety 05/04/2017 Aortic stenosis 12/2024 [facility] admission confirmed by ultrasound Cerebral aneurysm without rupture 05/04/2017 CHF (congestive heart failure) Chronic back pain Chronic obstructive pulmonary disease on supplement O2 1L with sleep, 2L at rest, 3L exertion - home ventilator Chronic tension headaches 05/04/2017 Depressive disorder Essential hypertension 05/04/2017 Hypogammaglobulinemia IVIG-infusions monthly Hypotension 12/2024 [facility] admission Irritable bowel syndrome 05/04/2017 Migraines Mixed hyperlipidemia 05/04/2017 Multiple lacunar infarcts Night terrors Non-rheumatic mitral regurgitation 11/03/2017 Non-rheumatic tricuspid valve insufficiency 11/03/2017 NSTEMI (non-ST elevated myocardial infarction) x2 Parotid mass 05/04/2017 PTSD (post-traumatic stress disorder) Pulmonary nodules Sacroiliitis, not elsewhere classified 05/04/2017 Small bowel obstruction 12/2024 [facility] admission confirmed by CT w/ contrast Temporomandibular joint disorder 05/04/2017 medications Medication Sig Start Date End Date Taking? Authorizing Provider albuterol 90 mcg/actuation inhaler INHALE TWO PUFFS BY MOUTH EVERY 4 HOURS NEEDED FOR WHEEZING 05/07/25 Yes Madhuri Farrar, DNP, OFFICE CORRESPONDENT ARIPiprazole (ABILIFY) 5 MG tablet Take 5 mg by mouth daily. 12/27/24 Yes Omar Cooley MD aspirin 81 MG EC tablet Take 1 tablet by mouth every morning. 12/16/23 Yes Omar Cooley MD atorvastatin (LIPITOR) 80 MG tablet Take 1 tablet (80 mg total) by mouth every morning. 03/08/25 YesDavon Pierce PA-C, MPH baclofen (LIORESAL) 20 MG tablet Take 1 tablet (20 mg total) by mouth 3 (three) times a day. 10/06/24 Yes Jn Cardoza MD benzonatate (TESSALON) 100 MG capsule Take 1 capsule (100 mg total) by mouth 3 (three) times a day as needed for cough. 12/28/24 Yes Eliana Prabhakar, OFFICE CORRESPONDENT budesonide (PULMICORT) 0.5 mg/2 mL nebulizer solution Take 0.5 mg by nebulization daily. States does not have, per Dr. Henriquez/pulmonology not on her medlist 12/27/24 Yes Omar Cooley MD siupgwgsvn-fykescri-fmbgfphbko (BREZTRI AEROSPHERE) 160-9-4.8 mcg/actuation inhaler Inhale 2 puffs into the lungs 2 (two) times a day. 01/26/25 Yes Omar Cooley MD fvjutgnpon-lhlsdtvbfkrps-ajscyaln (FIORICET, ESGIC) 50-325-40 mg per tablet TAKE ONE TABLET BY MOUTH EVERY DAY NEEDED FOR PAIN 03/09/25 Yes Antoine Segura PA-C calcium carbonate-vitamin D3 1,500 mg (600 mg elemental)-200 units Tab TAKE ONE TABLET BY MOUTH EVERY DAY 08/09/24 Yes Liyah Patterson MD ciclopirox (PENLAC) 8 % solution Apply topically nightly at bedtime. Apply over nail and surrounding skin. Apply daily over previous coat. After seven (7) days, may remove with alcohol and continue cycle. 10/12/24 Yes Antione Segura PA-C doxycycline monohydrate (MONODOX) 100 MG capsule Take 100 mg by mouth daily. X 4 days 02/09/25 Yes Omar Cooley MD gabapentin (NEURONTIN) 300 MG capsule TAKE FOUR CAPSULES BY MOUTH THREE TIMES A DAY 04/09/25 Yes Antione Segura PA-C hyoscyamine (ANASPAZ,LEVSIN) 0.125 mg tablet TAKE 1-2 TABLETS BY MOUTH EVERY 4 - 6 HOURS NEEDED FOR ABDOMINAL CRAMPS AND BLOATING PRN 11/07/24 Yes Antione Segura PA-C ipratropium-albuteroL (DUONEB) 0.5-3 mg (2.5 mg base)/3 mL nebulizer solution Take 3 mL by nebulization every 4 (four) hours. 12/17/23 Yes Omar Cooley MD nebulizer accessories Kit 12/14/23 Yes Omar Cooley MD omeprazole (PRILOSEC) 20 MG capsule Take 20 mg by mouth daily. 12/27/24 Yes Omar Cooley MD OXcarbazepine (TRILEPTAL) 300 MG IMMEDIATE release tablet Take 1 tablet (300 mg total) by mouth 2 (two) times a day. 03/01/25 Yes Jn Cardoza MD oxyCODONE 5 MG immediate release tablet Take 1 tablet (5 mg total) by mouth every 6 (six) hours as needed for pain (specific location in comments). 05/17/25 Yes Antione Segura PA-C OXYGEN-AIR DELIVERY SYSTEMS MISC 2 L by Intranasal route continuous. 1L WITH SLEEP 2L WITH REST/ NO ACTIVITY 3L WITH EXERTION. 08/26/24 Yes Omar Cooley MD prazosin (MINIPRESS) 2 MG capsule Take 1 capsule (2 mg total) by mouth nightly at bedtime. 08/09/24 Yes Liyah Patterson MD roflumilast (DALIRESP) 500 mcg Tab Take 500 mcg by mouth daily. 10/10/24 Yes Provider, MD Omar valsartan (DIOVAN) 80 MG tablet Take 80 mg by mouth daily. hold is sbp less than 90 10/04/24 Yes Provider, HistoricalMD verapamiL (CALAN) 120 MG immediate release tablet Take 120 mg by mouth 2 (two) times a day. hold ifsbp less than 120 12/28/23 Yes Provider, MD Omar VIOS AEROSOL DELIVERY SYSTEM Stefani 12/20/23 Yes Provider, MD Omar Objective Physical Exam Vitals: 05/29/25 0805 BP: 122/64 BP Location: Right arm Patient Position: Sitting Cuff Size: Large Pulse: 88 Resp: 29 SpO2: 97% Weight: 100.2 kg (221 lb) Height: 156.2 cm (5' 1.5 ) General Appearance no acute distress Lungs diminished breath sounds bilaterally Heart systolic murmur appreciated over the right upper sternal border. 2+ pitting edema in the lower extremities Results Assessment & Plan Assessment & Plan Acute on chronic hypoxic respiratory failure Patient with a history of several admissions to [facility] within the last 3 months secondary to COPD and CHF exacerbations since her last admission patient had completed the course of prednisone and taper and doxycycline. However when I saw her in the office for TCM she was noted to have 2+ pitting edema as signifying heart failure as she her Lasix had been on hold. At that time I gave her a trial for a week of Lasix which did not improve her symptoms. She tapered off of the prednisone and had been doing relatively well. However she started having episodes of increasing dyspnea on exertion and noted lower extremity edema once again. She mentions that she is tired and was recentl y seen by cardiology who felt that her episode of dizziness upon standing was secondary to orthostatic hypotension however upon further discussion her dizziness is throughout the time when she is ambulating signifying it could be multifactorial secondary to not only her COPD which is quite advancedbut also underlying valve abnormalities. Of note patient had been noted to have aortic stenosis on echocardiogram and she has not a noted significant murmur on physical examination. I do think that her acute on chronic hypoxic respiratory failure is multifactorial secondary to COPD CHF and possibleunderlying valve disorder. Upon conclusion of her last visit patient went and did a second opinion through respiratory therefore I did reach out to [facility] pulmonary and patient does have an appointment on 07/03/[address] Akins. She was also advised to undergo pulmonary function tests which have been ordered. -Patient will continue Lasix 20 mg daily. -She will continue to monitor her blood pressures closely at home she will hold her Lasix if her systolic blood pressure is less than 110 -She will follow-up with [facility] pulmonary for second opinion on 07/03 -She will continue her supplemental oxygen -Patient was advised that if her shortness of breath increased she will need to call 911 and be transferred to the hospital. Follow-up: The patient will follow up in 1 month. I personally spent a total of 44 minutes on care for this patient on the date of the encounter. This includes [id number]-rh-[id number] time during the visit as well as non gexh-va-pwuy time spent on chart review, documentation, and care coordination. I obtained verbal consent from the patient or their proxy to record this visit for purposes of producing a draft of the encounter documentation. Antione Segura PA-C documented in this encounter Miscellaneous Notes * Assessment & Plan Note - Antione Segura PA-C - 05/29/2025 12:48 PM EST Associated Problem(s): Acute on chronic hypoxic respiratory failure Patient with a history of several admissions to [facility] within the last 3 months secondary to COPD and CHF exacerbations since her last admission patient had completed the course of prednisone and taper and doxycycline. However when I saw her in the office for TCM she was noted to have 2+ pitting edema as signifying heart failure as she her Lasix had been on hold. At that time I gave her a trial for a week of Lasix which did not improve her symptoms. She tapered off of the prednisone and had been doing relatively well. However she started having episodes of increasing dyspnea on exertion and noted lower extremity edema once again. She mentions that she is tired and was recentl y seen by cardiology who felt that her episode of dizziness upon standing was secondary to orthostatic hypotension however upon further discussion her dizziness is throughout the time when she is ambulating signifying it could be multifactorial secondary to not only her COPD which is quite advancedbut also underlying valve abnormalities. Of note patient had been noted to have aortic stenosis on echocardiogram and she has not a noted significant murmur on physical examination. I do think that her acute on chronic hypoxic respiratory failure is multifactorial secondary to COPD CHF and possibleunderlying valve disorder. Upon conclusion of her last visit patient went and did a second opinion through respiratory therefore I did reach out to [facility] pulmonary and patient does have an appointment on 07/03/[address] Akins. She was also advised to undergo pulmonary function tests which have been ordered. -Patient will continue Lasix 20 mg daily. -She will continue to monitor her blood pressures closely at home she will hold her Lasix if her systolic blood pressure is less than 110 -She will follow-up with [facility] pulmonary for second opinion on 07/03 -She will continue her supplemental oxygen -Patient was advised that if her shortness of breath increased she will need to call 911 and be transferred to the hospital. documented in this encounter Plan of Treatment Upcoming Encounters Date Type Department Care Team (Late st Contact Info) Description 06/04/2025 12:30 AM EST Appointment [facility] [address] [place] [address] Shakira Hand, HUA [address] [place] [address] [email or web address] 06/05/2025 1:00 AM EST Appointment [facility] [address] [place] [address] Raisa Bautista [address] [place] [address] [email or web address] 06/06/2025 12:30 AM EST Appointment [facility] [address] [place] [address] Raisa Bautista [address] [place] [address] [email or web address] 06/12/2025 1:30 AM EST Appointment [facility] [address] [place] [phone] Shakira Hand, HUA [address] [place] [address] [email or web address] 06/12/2025 2:00 AM EST Appointment [facility] [address] [place] [phone] Lily Raisa M [address] [place] [phone] [email or web address] 06/13/2025 2:00 PM EST Hospital Encounter [facility] [address] [place] [phone] Antione Segura PA-C [address] [place] [address] [email or web address] 06/14/2025 1:00 AM EST Appointment [facility] [address] [place] [address] LilyRaisa [address] [place] [phone] [email or web address] 06/19/2025 1:00 AM EST Appointment [facility] [address] [place] [address] Lily Raisa M [address] [place] [phone] [email or web address] 06/19/2025 2:00 AM EST Appointment [facility] [address] [place] [address] Shakira Hand, HUA [address] [place] [address] [email or web address] 06/21/2025 1:00 AM EST Appointment [facility] [address] [place] [phone] LilyRaisa [address] [place] [address] 06/25/2025 9:30 AM EST Telemedicine [facility] [address] [place] [phone] Jn Cardoza MD [address] [place] [phone] 06/26/2025 1:00 AM EST Appointment [facility] [address] [place] [phone] LilyRaisa [address] [place] [phone] 06/27/2025 Appointment [facility] [address] [place] [phone] Shakira Hand RN [address] [place] [address] 06/28/2025 1:00 AM EST Appointment [facility] [address] [place] [phone] LilyRaisa [address] [place] [phone] 07/03/2025 1:00 AM EST Appointment [facility] [address] [place] [phone] LilyRaisa [address] [place] [phone] 07/03/2025 1:00 PM EST Office Visit [facility] [address] [place] [address] [phone] Celso Akins MD [address] [place] [address] [phone] 07/04/2025 Appointment [facility] [address] [place], [place] [phone] Shakira Hand, HUA [address] [place] [address] 07/04/2025 11:20 AM EST Office Visit [facility] [address] [place] [address] Antione Segura PA-C [address] [place] [phone] 07/05/2025 1:00 AM EST Appointment [facility] [address] [place] [address] Raisa Bautista [address] [place] [phone] 07/10/2025 1:00 AM EST Appointment [facility] [address] [place] [address] Raisa Bautista [address] [address] 07/11/2025 Appointment [facility] [address] [place] [address] Shakira Hand RN [address] [place] [phone] 08/21/2025 10:30 AM EDT Appointment [facility] [address] [place] [phone] Antione Segura PA-C [address] [place] [phone] documented as of this encounter Visit Diagnoses Diagnosis Acute on chronic hypoxic respiratory failure- Primary documented in this encounter Additional Health Concerns Assessment Noted Time PHQ-9 Depression Total Score: 9 05/11/20 6:24 PM EST PHQ-2 Depression Total Score: 2 05/11/20 6:24 PM EST documented as of this encounter Care Teams Laborer Syrup Machine Relationship Specialty Start Date End Date Antione Segura PA-C [address] [place] [address] PCP - General Physician Fish Bin Tender 10/12/24 Jn Cardoza MD [address] [facility] [address] [place] [address] Neurology 02/03/24 Denys Henriquez MD [address] [place] [address] [place] [address] Pulmonary Disease 02/03/24 Rhett Cortez MD [address] [place] [address] Insurance Assigned Provider 01/20/25 documented as of this encounter Additional Source Comments The information contained in this document represents components of the legal health record. It is not the complete legal health record.[facility]
--- OUTSIDE RECORDS SUMMARY | 2025-05-31 02:00 | XMS_ITS | Encounter Summary ---
Author Organization [facility] Address [address] [place] [address] Phone Care Team Providers Care Forest Engineer Name Role Phone Jn Cardoza MD Unavailable Denys Henriquez MD Unavailable Antione Segura PA-C Primary Care Provider Rhett Cortez MD Unavailable Reason for Visit * Auth/Cert (Routine) Specialty Diagnoses / Procedures Referred By Dary smith Referred To Contact Referral ID Status Reason Start Date Expiration Date Visits Re quested Visits Authorized [id number] 1 1 Encounter Details Date Type Department Care Team (Late st Contact Info) Description 05/31/2025 2:00 AM EST Home Care Visit [facility] [address] [place] [phone] Rich Mariscal LPN [address] [place] [address] SKIVING MACHINE OPERATOR HOME VISIT Social History Tobacco [...] Sign Reading Time Taken Comments Blood Pressure 158/82 05/31/2025 10:57 AM EST Pulse 89 05/31/2025 10:57 AM EST Temperature 36.4 C (97.6 F) 05/31/2025 10:57 AM EST Respiratory Rate 18 05/31/2025 10:57 AM EST Oxygen Saturation 94% 05/31/2025 10:57 AM EST Inhaled Oxygen Concentration - - Weight - - Height - - Body Mass Index - - documented in this encounter Plan of Treatment Upcoming Encounters Date Type Department Care Team (Late st Contact Info) Description 06/04/2025 12:30 AM EST Appointment [facility] [address] [place] [address] Shakira Hand, HUA [address] [place] [address] [email or web address] 06/05/2025 1:00 AM EST Appointment [facility] [address] [place] [address] Raisa Bautista [address] [place] [address] [email or web address] 06/06/2025 12:30 AM EST Appointment [facility] [address] [place] [address] Raisa Bautista [address] [place] [address] [email or web address] 06/12/2025 1:30 AM EST Appointment [facility] [address] [place] [phone] Shakira Hand, HUA [address] [place] [address] [email or web address] 06/12/2025 2:00 AM EST Appointment [facility] [address] [place] [phone] Lily, Raisa M [address] [place] [address] [email or web address] 06/13/2025 2:00 PM EST Hospital Encounter [facility] [address] [place] [address] Antione Segura PA-C [address] [place] [address] [email or web address] 06/14/2025 1:00 AM EST Appointment [facility] [address] [place] [address] Lily, Raisa M [address] [place] [address] [email or web address] 06/19/2025 1:00 AM EST Appointment [facility] [address] [place] [phone] Raisa Bautista M [address] [place] [address] [email or web address] 06/19/2025 2:00 AM EST Appointment [facility] [address] [place] [phone] Shakira Hand, HUA [address] [place] [address] [email or web address] 06/21/2025 1:00 AM EST Appointment [facility] [address] [place] [address] Raisa Bautista M [address] [place] [address] 06/25/2025 9:30 AM EST Telemedicine [facility] Neurology Clinic [address] [place] [address] Jn Cardoza MD [address] [address] 06/26/2025 1:00 AM EST Appointment [facility] [address] [place] [address] Raisa Bautista [address] [place] [address] 06/27/2025 Appointment [facility] [address] [place] [phone] Shakira Hand RN [address] [place] [address] 06/28/2025 1:00 AM EST Appointment [facility] [address] [place] [address] Lily Raisa M [address] [place] [address] 07/03/2025 1:00 AM EST Appointment [facility] [address] [place] [address] Lily Raisa M [address] [place] [address] 07/03/2025 1:00 PM EST Office Visit [facility] Pulmonology, Allergy and Critical Care Medicine Clinic [address] [place] [address] Celso Akins MD [address] [place] [address] [phone] 07/04/2025 Appointment [facility] [address] [place] [address] Shakira Hand RN [address] [place] [address] 07/04/2025 11:20 AM EST Office Visit [facility] Primary Care Clinic [address] [place] [address] Antione Segura PA-C [address] [place] [address] 07/05/2025 1:00 AM EST Appointment [facility] [address] [place] [phone] Lily Raisa M [address] [place] [address] 07/10/2025 1:00 AM EST Appointment [facility] [address] [place] [phone] Lily Raisa Nuris [address] [place] [address] 07/11/2025 Appointment [facility] [address] [place] [address] Shakira Hand RN [address] [place] [address] 08/21/2025 10:30 AM EDT Appointment [facility] [address] [place] [address] Antione Segura PA-C [address] [place] [address] documented as of this encounter Visit Diagnoses Not on filedocumented in this encounter Additional Health Concerns Assessment Noted Time PHQ-9 Depression Total Score: 9 05/11/20 25 6:24 PM EST PHQ-2 Depression Total Score: 2 05/11/20 25 6:24 PM EST documented as of this encounter Home Health Visit - Care Plan Visit Details Visit Type -SKIVING MACHINE OPERATOR HOME VISIT Discipline -Penitentiary Problems Problem Description [...] Clinical Focus this Visit & Instruction Provided: ED visit last night due to COPD exacerbation, given 4 neb tx and IV salumendral and and sent home with 40mg prednisone x3days, PCP visit on 05/29 patient started on lasix 20mg daily. BLE +2 pittin g edema encouraged to elevate Instruction Provided to: patient Response to Instruction/Teachin g: Is partially able to teach back topics as evidenced by verbal recall. Plan for Next Visit Specific Focus & Education Needed: CVP assessment, resp assessm ent New Orders: see med list Updated Discharge Plan: When goals are met [...] Performed documented in this encounter Care Teams Forest Engineer Relationship Specialty Start Date End Date Antione Segura PA-C [address] [place] [address] PCP - General Physician Dough Cutting Machine Operator 10/12/24 Jn Cardoza MD [address] [place] [address], 2nd [place] [address] Neurology 02/03/24 Denys Henriquez MD [address] [place] [address] [place] [address] Pulmonary Disease 02/03/24 Rhett Cortez MD [address] [place] [address] [email or web address] Insurance Assigned Provider 01/20/25 documented as of this encounter Additional Source Comments The information contained in this document represents components of the legal health record. It is not the complete legal health record.[facility]
--- OUTSIDE RECORDS SUMMARY | 2025-05-31 11:00 | XMS_ITS | Encounter Summary ---
Author Organization [facility] Address [address] [place] [phone] Phone Care Team Providers Care [employer] Name Role Phone Jn Cardoza MD Unavailable Denys Henriquez MD Unavailable [phone] Antione Segura PA-C Primary Care Provider Rhett Cortez MD Unavailable Reason for Visit * Auth/Cert (Routine) Specialty Diagnoses / Procedures Referred By Dary smith Referred To Contact Referral ID Status Reason Start Date Expiration Date Visits Re quested Visits Authorized [id number] 1 1 Encounter Details Date Type Department Care Team (Late st Contact Info) Description 05/31/2025 11:00 AM EST Home Care Visit [facility] [address] [place] [phone] Raisa Bautista [address] [place], [place] [phone] [email or web address] [employer] INSTALLER HOME VISIT Social History Tobacco Use Types [...] high school, GED, job training, learning the Maori language, technical skills, or developing parenting skills)? [...] Description 06/04/2025 12:30 AM EST Appointment [facility] [address] [place] [phone] Shakira Hand RN [address] [place] [address] 06/05/2025 1:00 AM EST Appointment [facility] [address] [place] [address] Raisa Bautista [address] [place] [address] 06/06/2025 12:30 AM EST Appointment [facility] [address] [place] [address] Raisa Bautista [address] [place] [phone] 06/12/2025 1:30 AM EST Appointment [facility] [address] [place] [phone] Shakira Hand RN [address] [place] [address] 06/12/2025 2:00 AM EST Appointment [facility] [address] [place] [phone] Raisa Bautista [address] [place] [phone] 06/13/2025 2:00 PM EST Hospital Encounter [facility] [address] [place] [address] Antione Segura PA-C [address] [place] [address] 06/14/2025 1:00 AM EST Appointment [facility] [address] [place] [phone] Raisa Bautista [address] [place] [address] 06/19/2025 1:00 AM EST Appointment [facility] [address] [place] [phone] Raisa Bautista [address] [place] [address] 06/19/2025 2:00 AM EST Appointment [facility] [address] [place] [phone] Shakira Hand RN [address] [place] [address] 06/21/2025 1:00 AM EST Appointment [facility] [address] [place] [phone] Raisa Bautista [address] [place] [address] 06/25/2025 9:30 AM EST Telemedicine [facility] [address] [place] [address] Jn Cardoza MD 22 [facility], 2nd [place] [address] 06/26/2025 1:00 AM EST Appointment [facility] [address] [place] [phone] Raisa Bautista [address] [place] [address] 06/27/2025 Appointment [facility] [address] [place] [phone] Shakira Hand RN [address] [place] [address] 06/28/2025 1:00 AM EST Appointment [facility] [address] [place] [phone] Raisa Bautista [address] [place] [address] 07/03/2025 1:00 AM EST Appointment [facility] [address] [place], [place] [phone] Raisa Bautista [address] [place] [phone] 07/03/2025 1:00 PM EST Office Visit [facility] [address] [place] [phone] Celso Akins MD [address] [place] [phone] 07/04/2025 Appointment [facility] [address] [place] [phone] Shakira Hand RN [address] [place] [address] 07/04/2025 11:20 AM EST Office Visit [facility] [address] [place] [address] Antione Segura PA-C [address] [place] [address] 07/05/2025 1:00 AM EST Appointment [facility] [address] [place] [address] LilyJairoumesh Lawler [address] [place] [address] 07/10/2025 1:00 AM EST Appointment [facility] [address] [place] [phone] Lily Raisa [address] [address] 07/11/2025 Appointment [facility] [address] [place] [phone] Shakira Hand RN [address] [place] [phone] 08/21/2025 10:30 AM EDT Appointment [facility] [address] [place] [address] Antione Segura PA-C [address] [place] [address] documented as of this encounter Visit Diagnoses Not on filedocumented in this encounter Additional Health Concerns Assessment Noted Time PHQ-9 Depression Total Score: 9 05/11/20 25 6:24 PM EST PHQ-2 Depression Total Score: 2 05/11/20 25 6:24 PM EST documented as of this encounter Home Health Visit - Care Plan Visit Details 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 HOME 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 Discipline -Home Health Aide Problems [...] Performed documented in this encounter Care Teams [employer] Relationship Specialty Start Date End Date Antione Segura PA-C [address] [place] [phone] [email or web address] PCP - General Physician [facility]er 10/12/24 Jn Cardoza MD [address] [place] [address], [address] [place] [address] Neurology 02/03/24 Denys Henriquez MD [address] [place] [address] [place], [place] [phone] Pulmonary Disease 02/03/24 Rhett Cortez MD [address] [place] [address] Insurance Assigned Provider 01/20/25 documented as of this encounter Additional Source Comments The information contained in this document represents components of the legal health record. It is not the complete legal health record.[facility]
[2025-06-01] VITALS (14 sets, daily range): BP systolic 120–152; BP diastolic 54–89; PULSE 80–100; RESP 18–33; TEMP 36.3–36.8; O2SAT 82–99; BMI 42.9
--- NOTE | ~2025-06-01 | CT_ITS ---
CLINICAL HISTORY: shortness of breath Exam: Unenhanced CT chest with multiplanar reformats. Comparison: 02/17/2025. Findings: Lungs are free of focal consolidation. There is a minimal bilateral posterior sulcus atelectasis. No new pulmonary nodules or parenchymal lesions. Stable 3 mm right upper lobe nodule (6; 45). Airways are patent. No pneumothorax. No evidence of pulmonary edema. No emphysematous disease. No new mediastinal or hilar masses or adenopathy. No pleural or pericardial effusions. Images below the diaphragms reveal no acute abnormalities. Osseous structures reveal no destructive osseous lesions. Impression: 1. No acute abnormality or CT explanation for reported history of shortness of breath. This document has been electronically signed by: Anoop Pugh MD on 06/01/2025 19:00:47
--- NOTE | ~2025-06-01 | XR_ITS ---
EXAMINATION: XR CHEST CLINICAL INFORMATION: dyspnea COMPARISON: 05/29/2025 TECHNIQUE: Frontal view of the chest was obtained. FINDINGS: There is a new focal opacity in the left lateral lung base. Lungs clear otherwise. Heart size is within normal limits. No pleural effusion is evident. No pneumothorax is identified. XR/XR chest 1V IMPRESSION: New focal opacity in the left lateral lung base could represent atelectasis and/or pneumonia. Electronically signed by: Deric Meeks MD 06/01/2025 10:11 AM [facility]
--- NOTE | ~2025-06-01 | US_ITS ---
EXAMINATION: US TRIPLEX LOWER EXTREMITY, BILATERAL CLINICAL INFORMATION: Edema, lower extremities COMPARISON: None available. TECHNIQUE: Color-flow triplex imaging with spectral analysis and compression Doppler were performed on the bilateral lower extremities. FINDINGS: Respiratory variation, normal compression and augmented flow are demonstrated throughout the interrogated common femoral vein, superficial femoral vein, profunda femoral vein, popliteal vein and midcalf peroneal and posterior tibial venous segments both lower extremities. There is no Hartley's cyst. Edema pattern in the soft tissues of the right lower extremity without fluid collections. US/US venous duplex LE BI IMPRESSION: No acute deep venous thrombosis interrogated veins of the lower extremities. Negative for DVT. Electronically signed by: Juliocesar Partida MD 06/01/2025 03:13 PM [facility]
--- NOTE | 2025-06-01 09:40 | ED_ITS ---
HPI - SOB/Dyspnea General Chief Complaint: Upper Respiratory Symptoms Stated Complaint: ASTHMA Time Seen by Provider: 06/01/25 09:39 Source: patient and EMS Mode of arrival: EMS Limitations: no limitations History of Present Illness ED Provider: HPI Narrative: istory of Present Illness: The patient is a 60-year-old female with a history of asthma, COPD, and heart failure with preserved ejection fraction who presents with acute shortness of breath. Symptoms began approximately one hour prior to arrival. She describes associated dizziness as well as warmth and edema of both lower extremities. She reports ~35 similar ED/urgent visits since November 2023 and was seen here three days ago. She completed a course of steroids this morning. Home oxygen regimen: 1 L while sleeping, 2 L at rest, and 3 L with exertion; EMS increased to 4 L en route today. She is currently receiving nebulized bronchodilator therapy in the department. Review of Systems: * Respiratory: Positive for dyspnea and tachypnea. * Cardiovascular: Positive for dizziness. * Extremities: Positive for warmth and bilateral edema. Past Medical History * Asthma * COPD * Heart failure with preserved ejection fraction (HFpEF) Social History * Former smoker; quit approximately 13 months ago. Related Data Home Medications ?Medication ?Instructions ?Recorded ?Confirmed atorvastatin 80 mg tablet 80 mg PO DAILY@199903/04/23 05/22/25 zbyqmfxglm-jzvjdrzkelbuj-enmmfkas 1 tab PO DAILY MRX1 PRN Migraine 03/04/23 05/22/25 50 mg-325 mg-40 mg tablet Headache duloxetine 60 mg capsule,delayed 60 mg PO BID@0600,200 0 03/04/23 05/22/25 release gabapentin 300 mg capsule 1,200 mg PO TID@0600,1200,20 00 03/04/23 05/22/25 hyoscyamine sulfate 0.125 mg tablet 0.25 mg PO Q6H PRN Abdominal 03/04/23 05/22/25 Discomfort Oxygen Home Use 04/16/23 05/22/25 prazosin 2 mg capsule 2 mg PO DAILY@199904/16/23 05/22/25 albuterol sulfate 90 mcg/actuation 2 puff inhalation Q 4H PRN 01/31/24 05/22/25 aerosol inhaler Shortness Of Breath Or Wheez ing aspirin 81 mg tablet,delayed 81 mg PO DAILY@05/2205/22/25 release calcium 600 mg (as 1 tab PO DAILY@199906/20/24 05/22/25 carbonate)-vitamin D3 5 mcg (200 unit) tablet baclofen 20 mg tablet 20 mg PO TID@0600,1199,199910/29/24 05/22/25 aripiprazole 5 mg tablet (Abilify) 5 mg PO DAILY@0612/01/24 05/22/25 oxcarbazepine 300 mg tablet 300 mg PO BID@06,199905/22/25 lorazepam 0.5 mg tablet 0.5 mg PO BEDTIME@1999 MODER ATE 01/04/25 05/22/25 Anxiety polyethylene glycol 3350 17 17 g PO DAILY PRN Constipa tion 01/04/25 05/22/25 gram/dose oral powder (Miralax) budesonide 160 mcg-glycopyr 9 2 inh inhalation BID@060 0,1800 02/05/25 05/22/25 mcg-formot 4.8 mcg/actuation HFA inhaler (Breztri Aerosphere) lorazepam 0.5 mg tablet 0.5 mg PO DAILY PRN Anxiety 02/05/25 05/22/25 roflumilast 500 mcg tablet 500 mcg PO DAILY@0600 02/0505/22/25 (Zayiresp) valsartan 40 mg tablet 40 mg PO DAILY@0602/05/25 05/22/25 omeprazole 20 mg capsule,delayed 20 mg PO DAILY@0600 0 03/01/25 05/22/25 release prednisone 5 mg tablet 5 mg PO Q48H 03/01/25 acetaminophen 650 mg 1,300 mg PO Q8H PRN Pain 05/22/25 tablet,extended release magnesium oxide 400 mg PO DAILY@03/13/2 5 05/22/25 melatonin 3 mg tablet 3 mg PO BEDTIME PRN Insomnia 04/08/25 05/22/25 oxycodone 5 mg tablet 5 mg PO Q6H PRN Severe Pain (Scale 04/08/25 05/22/25 Score 7-10) chlorhexidine gluconate 0.12 % 15 ml buccal BID@05/13/25 05/22/25 mouthwash furosemide 40 mg tablet 40 mg PO DAILY@0600 05/13/25 05/22/25 Previous Rx's ?Medication ?Instructions ?Recorded nebulizer and compressor #1 ea 12/16/23 ipratropium 0.5 mg-albuterol 3 mg 3 ml inhalation Q4H PRN for 03/02/24 (2.5 mg base)/3 mL nebulization dyspnea #180 mL soln hydromorphone 2 mg tablet 2 mg PO Q6H #16 tabs 5 (Dilaudid) benzocaine 20 % mucosal gel 1 appl mucous membrane QID PRN 04/25/25 (Anbesol (benzocaine) Maximum tooth pain #1 g Strength) doxycycline monohydrate 100 mg 100 mg PO BID #10 caps 05/15/25 capsule prednisone 20 mg tablet 40 mg (2 x 20 mg) PO DAILY # 8 tabs 05/15/25 verapamil 180 mg tablet,extended 180 mg PO DAILY #30 t abs 05/22/25 release prednisone 20 mg tablet 40 mg (2 x 20 mg) PO DAILY 3 days 05/29/25 #6 tabs Allergies Allergy/AdvReac Type Severity Reaction Status Date / Time Iodinated Contrast Media (IV Allergy Intermediate HIVES Verified 06/01/25 09:43 CONTRAST) latex (LATEX) Allergy Unknown RASH Verified 06/01/25 09:43 adhesive tape Allergy Rash Verified 06/01/25 09:43 morphine (MORPHINE) AdvReac Unknown VOMITING Verified 06/01/25 09:43 Review of Systems 2 Constitutional: Constitutional: Reports as per [facility] Past Medical History Medical History Chronic lung disease Morbid obesity Pulmonary nodules Diastolic heart failure Chronic lung disease Hypoxia Panic disorder Hypertension Chronic hypercapnic respiratory failure Aortic stenosis Asthma Hypogammaglobulinemia Smoker JUANITO (obstructive sleep apnea) Elevated troponin COPD (chronic obstructive pulmonary disease) Trigeminal neuralgia Mixed hyperlipidemia Peripheral neuropathy Tobacco use disorder Mood disorder Surgical History History of esophagogastroduodenoscopy (EGD) History of colonoscopy History of lumbar discectomy History of tubal ligation History of excision of mass History of shoulder surgery Social History Social History Household Members: Spouse Household Members Other:: dog Housing: Condominium Do you presently have visiting nurse or other home services: Yes (VNA) Alcohol intake: current Alcohol intake frequency: holidays/special occasions only Alcohol type: hard liquor Comment: pt refusing alarms and assistance OOB Patient Tobacco Use Status: Former Tobacco user Tobacco use type: Cigarette Cigarette Packs Per Day: 4 Cigarettes Per Day: 80.0 Years Smoked: 40 e-Cigarette/Vaping Use: Never Used Second Hand Smoke Exposure: No Substance Use Type: Marijuana Advance Directives: Yes Advance Directives on File: Yes Advance Directives Date on File: 03/09/23 Do you have a plan to hurt others: No Plan service: No Physical Exam 2 Exam: Exam: * General: Appears dyspneic, tachypneic. * Lungs: Work of breathing increased, scattered wheezing * Cardiovascular: Heart rate regular, no obvious heart murmurs. * Extremities: Warmth and bilateral lower-extremity edema noted. * She is alert and oriented x4 moving upper and lower extremities symmetrically Vital Signs: Vital Signs: Last Vital Signs Temp 98.3 F 06/01/25 09:41 Pulse 82 06/01/25 11:34 Resp 26 H 06/01/25 11:34 BP 120/54 L 06/01/25 11:34 Pulse Ox 89 L 06/01/25 11:34 O2 Del Method BiPAP 06/01/25 11:34 FiO2 25 06/01/25 11:34 Oxygen Flow Rate 8 06/01/25 09:41 BMI result Body Mass Index 42.9 Medications Administered Discontinued Medications Generic Name Dose Route Start Last Admin Trade Name Freq PRN Reason Stop Dose Admin Albuterol Sulfate 7.5 mg/ 0 mg 06/01/25 10:31 06/01/25 10:37 Albuterol/Ipratropium 3 ml INHALE 06/01/25 10:32 10 each ONCE ONE Administration Sodium Chloride 1,000 mls @ 999 mls/hr 06/01/25 10:00 06/01/25 10:42 Ns IV 06/01/25 11:00 999 mls/hr .Q1H1M CHAPARRO Administration Methylprednisolone Sodium Succinate 60 mg 06/01/25 09:56 06/01/25 10:19 Methylprednisolone Sod Succ 125 Mg/2 Ml Vial IVPUSH 06/01/25 09:57 Not Given ONCE ONE Medical Decision Making Medical Decision Making MDM Narrative: Assessment & Plan 60-year-old female with chronic asthma/COPD and HFpEF presenting with acute dyspnea most consistent with asthma exacerbation by bedside ultrasound, differential includes COPD exacerbation, CHF exacerbation, and pneumonia; PE less likely given her presentation and ultrasound findings without RV strain. Hypovolemia noted on imaging. Problem #1: Acute asthma exacerbation Assessment: Acute flare with tachypnea, dyspnea, and bedside US findings supporting reactive airway process; oxygenation preserved on pulse oximetry. Plan: * Continue nebulized bronchodilator therapy in ED. * Consult respiratory therapy; consider non-invasive ventilation if work of breathing does not improve * Monitor vitals, respiratory status, and need for supplemental oxygen. * Disposition to be determined; patient was seen three days ago and just completed steroids?possible admission for further management. Problem #2: Hypovolemia (IVC collapse on ultrasound) Assessment: IVC collapse noted; likely volume depleted. Plan: * Monitor hemodynamics and repeat bedside ultrasound as needed. Problem #3: History of HFpEF Assessment: No ultrasonographic evidence of acute decompensation today. Plan: * Observe for any signs of volume overload during stay. Differential Diagnosis Differential Diagnoses: The differential diagnosis associated with the presentation includes * Asthma exacerbation: The bedside lung ultrasound findings are consistent with asthma exacerbation, she has a well-established history of asthma, recently completed steroids but returned 3 days post-discharge, and presents with classic symptoms of dyspnea and tachypnea. Her oxygen saturation is well- maintained at 99% on supplemental oxygen. This is the most likely primary diagnosis given the imaging findings. * Acute exacerbation of COPD: Given her history of COPD, former smoking status, and clinical presentation of dyspnea and tachypnea, COPD exacerbation overlaps significantly with asthma in this patient. The two conditions frequently coexist and can be difficult to differentiate clinically, particularly during acute presentations. Viral infections and environmental factors commonly trigger exacerbations in both conditions. * Heart failure with preserved ejection fraction (HFpEF) with atypical presentation: While her ultrasound shows no acute decompensation, HFpEF can present with dyspnea on exertion and bilateral edema. However, the absence of pulmonary edema findings, normal RV function, and IVC collapse make acute HF decompensation less likely as the primary special events driver. * Anemia: Anemia commonly causes dyspnea, dizziness, and lower extremity edema, particularly in patients with underlying chronic conditions like heart failure. The combination of chronic disease and recent frequent ED visits suggests this warrants investigation. * Pulmonary embolism (PE): Unlikely giving her presentation of wheezing and dyspnea and ultrasound findings * Acute coronary syndrome: Although less likely given vital signs and age, dyspnea can be an anginal equivalent, particularly in women. Dizziness may represent decreased cardiac output, and bilateral edema could suggest chronic ischemic cardiomyopathy. * Pneumonia/infection: Respiratory viral infections are common triggers for asthma and COPD exacerbations. The lack of fever doesn't exclude infection, and pneumonia should be considered given her immunocompromised state from recent steroids and chronic lung disease. Admission/Observation Consideration of admission/observation: Escalation of care including admission/observation considered Lab Data 06/01/25 10:20 06/01/25 10:20 Labs: Lab Results 06/01/25 06/01/25 Range/Units 10:20 10:26 WBC 9.0 (4.8-10.8) X10*3/uL RBC 3.79 L (4.20-5.50) X10*6/uL Hgb 11.5 L (12.0-16.0) g/dl Hct 36.3 L (37.0-47.0) % MCV 95.8 (80.0-98.0) fL MCH 30.3 (27.0-33.0) pg MCHC 31.7 (31.0-35.0) g/dl RDW 14.9 (11.0-16.0) % Plt Count 339 (160-400) X10*3/uL MPV 9.4 (9.4-12.3) fL Immature Gran % (Auto) 0.2 (0.0-0.4) % Neut % (Auto) 70.9 (45-73) % Lymph % (Auto) 18.9 L (20-40) % [place] % (Auto) 7.3 (2-11) % Eos % (Auto) 2.1 (0-4) % Baso % (Auto) 0.6 (0-2) % Lymph # (Auto) 1.7 (1.2-4.9) X10*3/uL [place] # (Auto) 0.7 (0.1-1.2) X10*3/uL Eos # (Auto) 0.2 (0.0-0.4) X10*3/uL Baso # (Auto) 0.1 (0.0-0.2) X10*3/uL Abs Immat Gran (auto) 0.02 (0.00-0.03) X10*3/uL Absolute Neuts (auto) 6.4 (2.0-8.3) x10*3/uL Absolute Nucleated RBC 0.000 (0.0-0.012) X10*3/uL Nucleated RBC % (auto) 0.0 (0.0-0.2) /100WBC VBG pH 7.41 (7.32-7.43) VBG pCO2 50 mmHg VBG pO2 103 mmHg VBG HCO3 32 H (22-26) mmol/L VBG O2 Saturation 100.0 % VBG Base Excess 7.0 mmol/L Sodium 145 (135-145) mmol/L Potassium 3.2 L D (3.3-5.1) mmol/L Chloride 106 (96-108) mmol/L Carbon Dioxide 30 H (22-29) mmol/L Anion Gap 12 (12-20) BUN 17 H (9-16) mg/dL Creatinine 0.81 (0.5-1.4) mg/dL Estim Creat Clear Calc 79.4 Estimated GFR > 60 Random Glucose 122 H (60-115) mg/dL Calcium 9.6 (8.4-10.2) mg/dL Total Bilirubin 0.2 (0.0-1.0) mg/dL AST 29 (5-31) U/L ALT 10 (0-31) U/L Alkaline Phosphatase 57 (39-117) U/L Troponin I High Sens 8.8 (<3.5-17.0) ng/L NT-Pro-B Natriuret Pep 162.8 (<300) pg/mL Total Protein 7.2 (6.5-8.0) g/dL Albumin 4.1 (3.5-5.0) g/dL Influenza Type A (PCR) NEGATIVE (Negative) Influenza Type B (PCR) NEGATIVE (Negative) RSV RNA Qual (PCR) NEGATIVE (Negative) SARS-CoV-2 RNA (RT-PCR) NEGATIVE (Negative) Procedures Ultrasound ED POC Ultrasound: EMERGENCY ULTRASOUND REPORT?Point of Care Cardiac (Echo-Focus), images I locally stored Emergent Cardiac for Indication: Dyspnea Views Used: Parasternal long, parasternal short, 4 chamber, subxiphoid, IVC Pericardial Effusion/Tamponade Findings: Absent Global LV Fxn: Preserved IVC Dilation and Resp Variation: Collapsed Findings consistent with asthma exacerbation; no pericardial effusion; no right ventricular strain; Critical Care Time Critical Care Time Critical Care Time: Yes Total Critical Care Time: 45 Attestation: Time is exclusive of separately billable procedures. Time includes: direct patient care, patient reassessment, coordination of patient care, interpretation of data (laboratory data, pulse oximetry, arterial blood gases and chest xrays), review of patient's medical records, medical consultation and documentation of patient care. Procedures excluded from critical care time: central intravenous line placement and electrocardiography. Discharge Plan Discharge Clinical Impression: Acute exacerbation of chronic obstructive pulmonary disease, Hypovolemia, Acute dyspnea Prescriptions: No Action ipratropium-albuterol 0.5 mg-3 mg(2.5 mg base)/3 mL solution for nebulization 3 ml inhalation Q4H PRN (Reason: for dyspnea) Qty: 180 11RF baclofen 20 mg tablet 20 mg PO TID@0600,1200,1999 aripiprazole [Abilify] 5 mg tablet 5 mg PO DAILY@0600 oxcarbazepine 300 mg tablet 300 mg PO BID@0600,1999 acetaminophen 650 mg Tablet Extended Release 1,300 mg PO Q8H PRN (Reason: Pain) magnesium oxide 400 mg magnesium Tablet 400 mg PO DAILY@0600 oxycodone 5 mg tablet 5 mg PO Q6H PRN (Reason: Severe Pain (Scale Score 7-10)) melatonin 3 mg Tablet 3 mg PO BEDTIME PRN (Reason: Insomnia) prednisone 20 mg tablet 40 mg PO DAILY 3 Days Qty: 6 0RF atorvastatin 80 mg tablet 80 mg PO DAILY@1999 smwagayjtf-sgyzuacwcfagg-ehhf 50-325-40 mg tablet 1 tab PO DAILY MRX1 PRN (Reason: Migraine Headache) hyoscyamine sulfate 0.125 mg tablet 0.25 mg PO Q6H PRN (Reason: Abdominal Discomfort) gabapentin 300 mg capsule 1,200 mg PO TID@0600,1200,1999 duloxetine 60 mg capsule,delayed release(DR/EC) 60 mg PO BID@0600,2000 (DME) nebulizer and compressor Device See Rx Instructions .Route Qty: 1 0RF Rx Instructions: As directed albuterol sulfate 90 mcg/actuation HFA aerosol inhaler 2 puff inhalation Q4H PRN (Reason: Shortness Of Breath Or Wheezing) aspirin 81 mg tablet,delayed release (DR/EC) 81 mg PO DAILY@1999 polyethylene glycol 3350 [Miralax] 17 gram/dose Powder 17 g PO DAILY PRN (Reason: Constipation) lorazepam 0.5 mg tablet 0.5 mg PO BEDTIME@1999 Breztri Aerosphere 160-9-4.8 mcg/actuation HFA aerosol inhaler 2 inh inhalation BID@0600,1800 lorazepam 0.5 mg tablet 0.5 mg PO DAILY PRN (Reason: Anxiety) valsartan 40 mg tablet 40 mg PO DAILY@0600 Protocol: Hold for SBP< HOLD for SBP < : 90 roflumilast [Daliresp] 500 mcg tablet 500 mcg PO DAILY@0600 prednisone 5 mg tablet 5 mg PO Q48H Rx Instructions: Patient takes on even days omeprazole 20 mg capsule,delayed release(DR/EC) 20 mg PO DAILY@0600 hydromorphone [Dilaudid] 2 mg tablet 2 mg PO Q6H Qty: 16 0RF Rx Instructions: Partial Fill upon patient request. Anbesol (benzocaine) Max Str 20 % Gel 1 appl mucous membrane QID PRN (Reason: tooth pain) Qty: 1 0RF Protocol: Apply to: Apply to: tooth and gums furosemide 40 mg tablet 40 mg PO DAILY@0600 Protocol: Hold for SBP< HOLD for SBP < : 90 chlorhexidine gluconate 0.12 % mouthwash 15 ml buccal BID@06,20 doxycycline monohydrate 100 mg capsule 100 mg PO BID Qty: 10 0RF Rx Instructions: Take 1 tablet twice a day with food for the next 5 days, ending 05/20. prednisone 20 mg tablet 40 mg PO DAILY Qty: 8 0RF Rx Instructions: Take 40 mg (2 tabs) daily x3 days and then 20 mg (1 tab) daily for an additional 2 days calcium carbonate-vitamin D3 600 mg-5 mcg (200 unit) tablet 1 tab PO DAILY@1999 prazosin 2 mg capsule 2 mg PO DAILY@1999 (DME) Oxygen Home Use Kit See Rx Instructions .Route Rx Instructions: As directed verapamil 180 mg tablet extended release 180 mg PO DAILY Qty: 30 5RF Rx Instructions: Adjusting dose Stop 120mg bid and change to 180mg once daily ( doesnt want to make change for 2 weeks) Print Language: Slovenian
--- NOTE | 2025-06-01 09:54 | ECG_ITS ---
Test Reason : dyspnea Blood Pressure : */* mmHG Vent. Rate : 87 BPM Atrial Rate : 87 BPM P-R Int : 130 ms QRS Dur : 84 ms QT Int : 350 ms P-R-T Axes : 56 62 39 degrees QTcB Int : 421 ms Normal sinus rhythm Normal ECG When compared with ECG of 29-May-2025 19:13, Nonspecific T wave abnormality, worse in Inferior leads Referred By: Jose Francisco Olvera Electronically Signed By: Eladio Nelson
[2025-06-01 10:27] LABS: MANUAL DIFF FLAG NO
[2025-06-01 10:30] LABS: Hematocrit 36.3 % (37.0-47.0); Hemoglobin 11.5 g/dl (12.0-16.0); Imm Gran Abs Auto 0.02 X10*3/uL (0.00-0.03); Imm Gran Pct Auto 0.2 % (0.0-0.4); Lymphocytes Absolute Auto 1.7 X10*3/uL (1.2-4.9); Mean Corpuscular HGB Conc 31.7 g/dl (31.0-35.0); Mean Corpuscular Hemoglobin 30.3 pg (27.0-33.0); Mean Corpuscular Volume 95.8 fL (80.0-98.0); NRBC Abs Auto 0.000 X10*3/uL (0.0-0.012); NRBC Pct Auto 0.0 /100WBC (0.0-0.2); Platelet Count 339 X10*3/uL (160-400); Red Blood Count 3.79 X10*6/uL (4.20-5.50); White Blood Count 9.0 X10*3/uL (4.8-10.8)
[2025-06-01 10:35] LABS: VBG HCO3 32 mmol/L (22-26); VBG O2 % Saturation 100.0 %
[2025-06-01 10:35] LABS: Venous Blood Gas Refer to POC result
[2025-06-01] MEDS: Albuterol Sulfate 7.5 MG, Albuterol/Iprat 2.5/0.5MG 3 ML 3 ML INHALE (10:37)
[2025-06-01 10:46] LABS: Alanine Aminotransferase 10 U/L (0-31); Albumin Level 4.1 g/dL (3.5-5.0); Alkaline Phosphatase 57 U/L (39-117); Anion Gap 12 (12-20); Aspartate Amino Transferase 29 U/L (5-31); Blood Urea Nitrogen 17 mg/dL (9-16); Calcium 9.6 mg/dL (8.4-10.2); Carbon Dioxide 30 mmol/L (22-29); Chloride 106 mmol/L (96-108); Creatinine Clr Calc Pharmacy 79.4; Estimated Glomerular Filt Rate > 60; Potassium 3.2 mmol/L (3.3-5.1); Sodium 145 mmol/L (135-145); Total Protein 7.2 g/dL (6.5-8.0)
[2025-06-01 10:56] LABS: NT Pro B Type Natriuretic Pept 162.8 pg/mL (<300); Troponin-I High Sensitivity 8.8 ng/L (<3.5-17.0)
[2025-06-01 11:13] LABS: Resp Syncy Virus RNA Qual PCR NEGATIVE (Negative); SARS COV2 PCR INHOUSE NEGATIVE (Negative)
--- OUTSIDE RECORDS SUMMARY | 2025-06-01 11:15 | XMS_ITS | Encounter Summary ---
Author Organization [facility] Address [address] [place] [address] Phone Care Team Providers Care Boiler Cleaner Name Role Phone Lang Germain MD Unavailable Jennifer Duke COLLECTIONS ASSOCIATE Primary Care Provider Sirisha Huertas CUSTOMER CARE AGENT Primary Care Provider Jn Cardoza MD Unavailable Denys Henriquez MD Unavailable Liyah Patterson MD Unavailable Liyah Patterson MD Primary Care Provider [phone] Antione Segura PA-C Primary Care Provider [phone] Rhett Cortez MD Unavailable Encounter Details Date Type Department Care Team (Late st Contact Info) Description 11/27/2021 Procedure Pass [facility], [address] [place] [address] Social History Tobacco Use Types Packs/Day Years [...] Description 06/04/2025 12:30 AM EST Appointment [facility] [address] [place] [address] Shakira Hand RN [address] [place] [address] [email or web address] 06/05/2025 1:00 AM EST Appointment [facility] [address] [place] [address] Raisa Bautista [address] [place] [address] [email or web address] 06/06/2025 12:30 AM EST Appointment [facility] [address] [place] [address] Raisa Bautista [address] [place] [address] [email or web address] 06/12/2025 1:30 AM EST Appointment [facility] [address] [place] [phone] Shakira Hand RN [address] [place] [address] 06/12/2025 2:00 AM EST Appointment [facility] [address] [place] [address] Lily Raisa M [address] [place] [address] [email or web address] 06/13/2025 2:00 PM EST Hospital Encounter [facility] [address] [place] [address] Antione Segura PA-C [address] [place] [address] [email or web address] 06/14/2025 1:00 AM EST Appointment [facility] [address] [place] [phone] Lily Raisa M [address] [place] [address] [email or web address] 06/19/2025 1:00 AM EST Appointment [facility] [address] [place] [phone] Raisa Bautista [address] [place] [address] [email or web address] 06/19/2025 2:00 AM EST Appointment [facility] [address] [place] [phone] Shakira Hand, HUA [address] [place] [address] 06/21/2025 1:00 AM EST Appointment [facility] [address] [place] [phone] Rasia Bautista [address] [place] [address] 06/25/2025 9:30 AM EST Telemedicine [facility]rology [facility] [address] [place] [address] Jn Cardoza MD [address] [address] 06/26/2025 1:00 AM EST Appointment [facility] [address] [place] [address] Raisa Bautista [address] [place] [address] 06/27/2025 Appointment [facility] [address] [place] [address] Shakira Hand RN [address] [place] [address] 06/28/2025 1:00 AM EST Appointment [facility] [address] [place] [address] Raisa Bautista [address] [place] [address] 07/03/2025 1:00 AM EST Appointment [facility] [address] [place] [address] Raisa Bautista [address] [place] [address] 07/03/2025 1:00 PM EST Office Visit [facility] Pulmonology, Allergy [facility] [address] [place] [address] Celso Akins MD [address] [place] [address] 07/04/2025 Appointment [facility] [address] [place] [address] Shakira Hand RN [address] [place] [address] [email or web address] 07/04/2025 11:20 AM EST Office Visit [facility] Primary Care [facility] [address] [place] [address] Antione Segura PA-C [address] [place] [address] 07/05/2025 1:00 AM EST Appointment [facility] [address] [place] [address] Raisa Bautista [address] [place] [address] 07/10/2025 1:00 AM EST Appointment [facility] [address] [place] [address] Raisa Bautista [address] [place] [address] 07/11/2025 Appointment [facility] [address] [place] [address] Shakira Hand, HUA [address] [place] [address] 08/21/2025 10:30 AM EDT Appointment [facility] [address] [place] [address] Antione Segura PA-C [address] [place] [address] documented as of this encounter Visit Diagnoses Not on filedocumented in this encounter Additional Health Concerns Assessment Noted Time PHQ-2 Depression Total Score: 0 05/25/20 19 9:02 AM EST documented as of this encounter Care Teams Boiler Cleaner Relationship Specialty Start Date End Date Jennifer Duke, COLLECTIONS ASSOCIATE [address] [place] [address] [email or web address] PCP - General Family Medicine 01/31/20 06/22/23 Sirisha Huertas FNP [address] [place] [address] [email or web address] PCP - General Nurse Practitioner 06/23/23 08/03/24 Liyah Patterson MD [address] [place] [address] [email or web address] PCP - General Family Medicine 08/04/24 10/11/24 Antione Segura PA-C [address] [place] [address] [email or web address] PCP - General Physician Cyber Defense Analyst 10/12/24 Lang Germain MD [address] [place] [address] [email or web address] Insurance Assigned Provider 09/18/23 02/19/24 Jn Cardoza MD 22 [facility], 2nd [place] [address] [email or web address] Neurology 02/03/24 Denys Henriquez MD [address] [place] [address] [place] [address] Pulmonary Disease 02/03/24 Liyah Patterson MD [address] [place] [address] [email or web address] Insurance Assigned Provider 02/19/24 01/20/25 Rhett Cortez MD [address] [place] [address] [email or web address] Insurance Assigned Provider 01/20/25 documented as of this encounter Additional Source Comments The information contained in this document represents components of the legal health record. It is not the complete legal health record.[facility]
--- OUTSIDE RECORDS SUMMARY | 2025-06-01 11:15 | XMS_ITS | Encounter Summary ---
Author Organization [facility] Address [address] [address] Phone Care Team Providers Care Automotive Parts Counter Person Name Role Phone Jn Cardoza MD Unavailable Denys Henriquez MD Unavailable Antione Segura PA-C Primary Care Provider Rhett Cortez MD Unavailable Encounter Details Date Type Department Care Team (Late st Contact Info) Description 02/09/2025 Home Health Resumption of Care Planning [facility] [address] [place] [address] Koki Simons RN [address] [place] [address] [email or web address] Social History Tobacco Use Types Packs/Day Years [...] Description 06/04/2025 12:30 AM EST Appointment [facility] [address] [place] [phone] Shakira Hand RN [address] [place] [address] 06/05/2025 1:00 AM EST Appointment [facility] [address] [place] [phone] Raisa Bautista [address] [place] [address] 06/06/2025 12:30 AM EST Appointment [facility] [address] [place] [phone] Raisa Bautista [address] [place] [address] 06/12/2025 1:30 AM EST Appointment [facility] [address] [place] [phone] Shakira Hand RN [address] [place] [address] 06/12/2025 2:00 AM EST Appointment [facility] [address] [place] [phone] Raisa Bautista [address] [place] [address] 06/13/2025 2:00 PM EST Hospital Encounter [facility] [address] [place] [address] Antione Segura PA-C [address] [place] [address] 06/14/2025 1:00 AM EST Appointment [facility] [address] [place] [address] Raisa Bautista [address] [place] [address] 06/19/2025 1:00 AM EST Appointment [facility] [address] [place] [address] Raisa Bautista [address] [place] [address] 06/19/2025 2:00 AM EST Appointment [facility] [address] [place] [phone] Shakira Hadn RN [address] [place] [address] 06/21/2025 1:00 AM EST Appointment [facility] [address] [place] [phone] Raisa Bautista [address] [place] [address] 06/25/2025 9:30 AM EST Telemedicine [facility] Neurology Clinic [address] [place] [address] Jn Cardoza MD [address] [address] 06/26/2025 1:00 AM EST Appointment [facility] [address] [place] [phone] Raisa Bautista [address] [place] [address] 06/27/2025 Appointment [facility] [address] [place] [address] Shakira Hand RN [address] [place] [address] 06/28/2025 1:00 AM EST Appointment [facility] [address] [place] [address] Raisa Bautista [address] [place] [address] 07/03/2025 1:00 AM EST Appointment [facility] [address] [place] [address] Raisa Bautista [address] [place] [address] 07/03/2025 1:00 PM EST Office Visit [facility] Pulmonology, Allergy and Critical Care Medicine Clinic [address] [place] [address] Celso Akins MD [address] [place] [address] 07/04/2025 Appointment [facility] [address] [place] [address] Shakira Hand RN [address] [place] [address] 07/04/2025 11:20 AM EST Office Visit [facility] Primary Care Clinic [address] [place] [address] Antione Segura PA-C [address] [place] [address] 07/05/2025 1:00 AM EST Appointment [facility] [address] [place] [address] Raisa Bautista [address] [place] [address] 07/10/2025 1:00 AM EST Appointment [facility] [address] [place] [address] Raisa Bautista [address] [place] [address] 07/11/2025 Appointment [facility] [address] [place] [address] Shakira Hand RN [address] [place] [address] 08/21/2025 10:30 AM EDT Appointment [facility] [address] [place] [address] Antione Segura PA-C [address] [place] [address] documented as of this encounter Visit Diagnoses Not on filedocumented in this encounter Additional Health Concerns Assessment Noted Time PHQ-9 Depression Total Score: 15 025 9:44 AM EDT PHQ-2 Depression Total Score: 4 02/01/20 25 9:44 AM EDT documented as of this encounter Care Teams Automotive Parts Counter Person Relationship Specialty Start Date End Date Antione Segura PA-C [address] [place] [address] PCP - General Physician International Marketing Coordinator 10/12/24 Jn Cardoza MD [address] [place] [address], [address] [place] [address] [email or web address] Neurology 02/03/24 Denys Henriquez MD [address] [place] [address] [place] [address] Pulmonary Disease 02/03/24 Rhett Cortez MD [address] [place] [address] [email or web address] Insurance Assigned Provider 01/20/25 documented as of this encounter Additional Source Comments The information contained in this document represents components of the legal health record. It is not the complete legal health record.[facility]
--- OUTSIDE RECORDS SUMMARY | 2025-06-01 11:15 | XMS_ITS | Clinical Summary ---
Author Organization [facility] Address [address] [phone] Care Team Providers Care Communications Associate Name Role Phone Antione Segura Primary Care Provider [phone] Allergies Active Allergy Reactions Criticality Noted Date [...] Info) Description 06/27/2025 3:20 PM EST Follow-Up [facility] [address] [place] [address] Wallpaper Embosser Helper: Remy Santos MD [address] [place] [address] Health Maintenance Due Date Last Done Comments [...] complete this topic Procedures * Due to [place] [employer] law, this organization might not be sharing negative HIV tests. Procedure Name Priority Date/Time Associated Diagnosis Comments AMB EXTERNAL CT CHEST, OUTSI DE RESULT 11/30/2024 from Last 3 Months or Most Recently Relevant to Health Maintenance Results * Due to [place] [employer] law, this organization might not be sharing negative HIV tests. * CT Chest, Outside Result (11/30/2024) 11/30/2024 us Onbase Scan Bernadette AMB EXTERNAL RESULT PROCEDURE S Final Result from Last 3 Months or Most Recently Relevant to Health Maintenance Insurance [facility] HMO/POS Care Teams Communications Associate Relationship Specialty Start Date End Date Antione Segura PA [address] [place] [address] PCP - General Emergency Medicine 01/10/25
--- OUTSIDE RECORDS SUMMARY | 2025-06-01 11:15 | XMS_ITS | Encounter Summary ---
Author Organization [facility] Address [address] [place] [address] [place] [address] Phone Care Team Providers Care Starting Sheet Tank Operator Name Role Phone Lang Germain MD Unavailable Jennifer Duke BIOENGINEER Primary Care Provider Sirisha Huertas GRIDCAP MACHINE OPERATOR Primary Care Provider [phone] Jn Cardoza MD Unavailable Denys Henriquez MD Unavailable Liyah Patterson MD Unavailable Liyah Patterson MD Primary Care Provider Antione Segura PA-C Primary Care Provider Rhett Cortez MD Unavailable Encounter Details Date Type Department Care Team (Late st Contact Info) Description 11/11/2021 Transcribe Orders [facility] [address] [place] [address] Jennifer Duke, BIOENGINEER [address] [facility] [address] [place] [address] [email or web address] Social History Tobacco Use Types Packs/Day Years [...] Description 06/04/2025 12:30 AM EST Appointment [facility] [address] [place] [phone] Shakira Hand RN [address] [place] [address] [email or web address] 06/05/2025 1:00 AM EST Appointment [facility] [address] [place] [phone] Raisa Bautista [address] [place] [address] 06/06/2025 12:30 AM EST Appointment [facility] [address] [place] [phone] Raisa Bautista [address] [place] [address] 06/12/2025 1:30 AM EST Appointment [facility] [address] [place] [phone] Shakira Hand RN [address] [place] [address] 06/12/2025 2:00 AM EST Appointment [facility] [address] [place] [phone] Raisa Bautista [address] [place] [address] 06/13/2025 2:00 PM EST Hospital Encounter [facility] [address] [place] [address] Antione Segura PA-C [address] [place] [address] 06/14/2025 1:00 AM EST Appointment [facility] [address] [place] [address] Raisa Bautista [address] [place] [address] 06/19/2025 1:00 AM EST Appointment [facility] [address] [place] [phone] Raisa Bautista [address] [place] [address] 06/19/2025 2:00 AM EST Appointment [facility] [address] [place] [phone] Shakira Hand RN [address] [place] [address] 06/21/2025 1:00 AM EST Appointment [facility] [address] [place] [phone] Raisa Bautista [address] [place] [address] 06/25/2025 9:30 AM EST Telemedicine [facility] Neurology Clinic [address] [place] [address] Jn Cardoza MD 22 [facility], 2nd [place] [address] 06/26/2025 1:00 AM EST Appointment [facility] [address] [place] [address] Raisa Bautista [address] [place] [address] 06/27/2025 Appointment [facility] [address] [place] [address] Shakira Hand RN [address] [place] [address] 06/28/2025 1:00 AM EST Appointment [facility] [address] [place] [address] Raisa Bautista [address] [place] [address] 07/03/2025 1:00 AM EST Appointment [facility] [address] [place] [address] Raisa Bautista [address] [place] [address] 07/03/2025 1:00 PM EST Office Visit [facility] Pulmonology, Allergy and Critical Care Medicine Clinic [address] [place] [address] Celso Akins MD [address] [place] [address] 07/04/2025 Appointment [facility] [address] [place], [place] [phone] Shakira Hand RN [address] [place] [address] 07/04/2025 11:20 AM EST Office Visit [facility] Primary Care Clinic [address] [place] [address] Antione Segura PA-C 40 [place] [address] 07/05/2025 1:00 AM EST Appointment [facility] [address] [place] [address] LilyRaisa mckeon [address] [place] [address] 07/10/2025 1:00 AM EST Appointment [facility] [address] [place] [address] LilyRaisa mckeon [address] [place] [address] 07/11/2025 Appointment [facility] [address] [place] [address] Shakira Hand, HUA [address] [place] [address] 08/21/2025 10:30 AM EDT Appointment [facility] [address] [place] [address] Antione Segura PA-C [address] [place] [address] documented as of this encounter Visit Diagnoses Not on filedocumented in this encounter Additional Health Concerns Assessment Noted Time PHQ-2 Depression Total Score: 0 05/25/20 19 9:02 AM EST documented as of this encounter Care Teams Starting Sheet Tank Operator Relationship Specialty Start Date End Date Jennifer Duke, BIOENGINEER [address] [place] [address] PCP - General Family Medicine 01/31/20 06/22/23 Sirisha Huertas, GRIDCAP MACHINE OPERATOR [address] [place] [address] [email or web address] PCP - General Nurse Practitioner 06/23/23 08/03/24 Liyah Patterson MD [address] [place] [address] [email or web address] PCP - General Family Medicine 08/04/24 10/11/24 Antione Segura PA-C [address] [place] [address] [email or web address] PCP - General Physician Watch Mechanic 10/12/24 Lang Germain MD [address] [place] [address] [email or web address] Insurance Assigned Provider 09/18/23 02/19/24 Jn Cardoza MD [address] [place] [address], 2nd [place] [address] [email or web address] Neurology 02/03/24 Denys Henriquez MD [address] [place] [address] [place] [address] Pulmonary Disease 02/03/24 Liyah Patterson MD [address] [place] [address] [email or web address] Insurance Assigned Provider 02/19/24 01/20/25 Rhett Cortez MD [address] [place] [address] [email or web address] Insurance Assigned Provider 01/20/25 documented as of this encounter Additional Source Comments The information contained in this document represents components of the legal health record. It is not the complete legal health record.[facility]
--- OUTSIDE RECORDS SUMMARY | 2025-06-01 11:15 | XMS_ITS | Data Portability ---
Author Organization [facility], Main Office Address [address] [facility] [address] [place] [address] Care Team Providers Care Insulation Blower Name Role Phone [facility] (NONO UNIT) OTHER [...] and Address Organization Details Recorded Time Obesity 801178246 Active 2024 Not Available [facility] 21:47:07 Obstructive sleep apnea syndrome 39995063 Active 2024 Not Available [facility] 21:46:21 Gastroesophag eal reflux disease without esophagitis 581919810 Active 2024 Not Available [facility] 21:46:03 Migraine 64951541 Active 2024 Not Available [facility] 21:46:00 Congestive heart failure 91635200 Active 2024 Not Available [facility] 21:36:02 Chronic pain 88410268 Active 2024 Not Available [facility] 21:38:53 Anxiety disorder 964455813 Active 2024 Not Available [facility] 07/03/202 5 21:45:57 Recurrent major depression 12420552 Active 2024 Not Available [facility] 5 21:45:58 Cervico-occip ital neuralgia 57834137 Active 2024 Not Available [facility] 5 21:46:02 Pulmonary emphysema 89891351 Active [address], [address], [place], [address] , [facility] 5 13:35:33 Chronic obstructive pulmonary disease 57003736 Active [address], [address], [place], [address] , [facility] 5 13:36:09 Essential hypertension 39085407 Active [address], [address], [place], [address] , [facility] 5 13:36:17 Mixed hyperlipidemi a 587814140 Active [address], [address], [place], [address] , [facility] 5 13:36:22 History of calculus of kidney 680495194 Active [address], [address], [place], [address] , [facility] 5 13:36:31 History of cerebrovascul ar accident 895194767 Active [address], [address], [place], [address] , [facility] 5 13:36:42 Moderate aortic valve stenosis 238678851 Active [address], [address], [place], [address] , [facility] 5 13:37:10 Trigeminal neuralgia 42032894 Active [address], [address], [place], [address] , [facility] 5 13:37:19 Cervico-occip ital neuralgia 82759176 Active [address], [address], [place], [address] , [facility] 5 13:37:27 Chronic pain syndrome 574292825 Active [address], [address], [place], [address] , [facility] 5 13:37:38 Mixed anxiety and depressive disorder 715146473 Active 2024 BUDDY LORD [address], [address], [place], [address] , [facility] 5 13:37:56 Urinary incontinence 033966792 Active [address], [address], [place], [address] , [facility] 5 13:38:03 Low blood pressure 23066361 Active [address], [address], [place], [address] , [facility] 5 13:43:22 Osteoporosis 55417514 Active 2024 BUDDY [address], [place], [address] , [facility] 5 13:55:15 Problem Notes None recorded. Procedures Surgical History Date Name Laterality Status Provider Name and Address Organization Details Recorded Time esophagogastroduodenoscopy completed [facility] [address], [address], [place], [address], [facility] 5 13:38:59 biopsy of colon completed [facility] [address], [address], [place], [address], [facility] 5 13:39:08 excision of lumbar intervertebral disc completed BUDDY LORD [address], [address], [place], [address], [facility] 5 13:39:47 ligation of fallopian tube completed [facility] [address], [address], [place], [address], [facility] 5 13:40:01 operative procedure on shoulder completed BUDDY LORD [address] [place] [address], [address], [place], [address], [facility] 5 13:40:09 Imaging Results None recorded. Procedure Notes None recorded. Medical Equipment None Reported. Allergies Allergen ID Allergen Name Allergen Category Reaction Reaction Severity Criticality Documentation Date Start Date Code Code System Note Provider Name and Address Organization Details Recorded Time 99438 morphine medicatio n Not available Not available Not available 12/13/20242024 7052 RxMarlon Jacobo MD [address] [place] [address], [address], [place], [address], [facility] 5 16:31:18 21819 latex environme nt,medica tion Not available Not available Not available 12/13/20242024 23760 91 RxMarlon Jacobo MD [address] [place] [address], [address], [place], [address], [facility] 5 16:31:21 81650 Iodinated contrast media (substanc e) medicatio n hives Not available Not available 12/13/20242016 39952 2004 XU Jacobo MD [address] [place] [address], [address], [place], [address], [facility] 5 16:31:03 69613 adhesive tape environme nt,medica tion Not available Not available Not available 12/13/20242024 Not Available [facility] 5 14:22:57 87489 Latex (substanc e) environme nt,medica tion rash Not available low 12/18/20242016 81070 8007 XU Jacobo MD [address] [place] [address], [address], [place], [address], [facility] 5 16:31:06 64236 morphine sulfate medicatio n itching Not available Not available 12/18/20241999 02114 RxNorm Perla Jacobo MD [address], [address], [place], [address], [facility] 5 16:31:09 77584 procaine hydrochlo ride medicatio n other Not available Not available 12/18/20241999 00534 8 RxNorm Hives -karia saad Jacobo MD [address] [facility], [address], [place], [address], [facility] [employer] [facility] 5 16:31:12 Medications Name Sig [...] Available Not Available Not Avai lable Acid Herbicide Sprayer (omeprazole ) 20 mg capsule,del ayed release [...] /min 97.5 [degF] 154.94 cm 39.5 kg/m2 22071.8 1 g 97 % 164/72 mm[Hg] Perla Jacobo MD [address] [facility], [address], [place], [address], [facility] 5 20:04:19 Social History Question Answer Notes LastModified by Organizat ion Details LastModified Time Tobacco Smoking Status Former Smoker smoked 3+ ppd Perla Jacobo MD [address] [facility], [address], [place], [address], [facility] 12/19/2024 20:36:29 Do You Have An [...] Do You Have A Medical Power Of Practicing Urologist? Yes Information not available 12/19/2024 What Was [...] ICD10 Code Diagnosis IMO Codes Diagnosis Note [id number] [facility]UDDY [facility]gal[facility] at [facility] on [address] [place] [address] 12/14/2024 12:53:39 12/18/2024 12:27:53 Chronic obstructive pulmonary disease 27370773 J44.9 761291567 budesonide 2mL Neb bidprednis one 40 mg qdalbutero l 9mcg 2 puffs prn [id number] natate 100mg tidcodeine -guaifenes in 10/100mg 10ml [id number] pium-albut jose 3ml via neb q4h prnmucus DM 30-600 bidroflumi last 500 mcg qdmonitor respirator y status Chronic pain syndrome 37 7382064 G89.4 58993 lidocaine patch 4% qdbaclofen 20mg tidgabapen tin 300mg tidoxycodo ne 5mg bid prnmonitor patients pain level Gastroesop hageal reflux disease without esophagitis 758440719 K21.9 621442 omeprazole 20mg qdhyoscyam ine sulf 0.125mg q6h Essential hypertension 59872222 I10 56820 valsartan 40 mg qdaspirin 81 mg qdprazosin 2 mg qdverapami l 120mg bid Mixed anxi ety and depressive disorder 942328602 F41.9 F32.A 979546 aripiprazo le 5mg qdduloxeti ne 60mg bidlorazep am 1 mg qd prnmonitor moodpatien t will have a psych consult. Mixed hyperlipidemia 267 656214 E78.2 34326 atorvastat in 80mg qhs Migraine 71522351 G43.90 9 94199 butalbital -acetamino phen-caff 50-325-40 prnoxcarba zepine 300 mg tidmonitor patient for symptoms of migraine Osteoporosis 35102656 M8 1.8 94455 Calcium carbonate vit D3 600mg-5mcg qd [id number] Perla Jacobo MD [facility] [address] [place] [address] 12/19/2024 20:01:35 12/20/2024 11:17:41 Gastroesophageal reflux disease without esophagitis 029653118 K21.9 681497 No current sxs.Contin ue omeprazole 20 mg qd and hyoscyamin e sulf 0.125 mg q 6 hrs.F/U with PCP as outpt. Essential hypertension 05278645 I10 20958 SBP high this AM, but had bene ok prior to this.Raffi nue valsartan 40 mg qd, prazosin 2 mg qd, and verapamil 120 mg BID.MOnito r BP and labs as outpt. Mixed anxi ety and depressive disorder 908862363 F41.9 F32.A 669895 Mood a little anxious tonight, but pretty good.Raffi nue aripiprazo le 5 mg qd, duloxetine 60 mg BID, and lorazepam 1 mg qd prnF/U with PCP as outpt. Mixed hyperlipidemia 267 954939 E78.2 08227 Continue atorvastat in 80 mg qhs and ASA 81 mg qd.Monitor as outpt. Migraine 55859971 G43.90 9 44092 Continue meds as above and butalbital -acetamino phen-caff 50/325/40 mg BID prnF/U with PCP as outpt. Osteoporosis 84646684 M8 1.8 12552 Continue calcium carbonate and vit D3 600 mg/200 IU qdF/U as outpt. Pulmonary emphysema 8743 3001 J43.8 Z99.81 77811 Resp sxs almost back to baseline.W ill [...] pulmonolog ist as outpt. Trigeminal neuralgia 316 19522 G50.0 46969 Continue lidocaine patch 4% qd, baclofen 20 [...] Member ID Guarantor Name 12/20/2024 1 [place]: [facility] [id number] Zulma Constantino [id number] Zulma Constantino Notes Date Note Type [...] depression, anxiety, urinary incontinence. She presented to [facility] for shortness of breath persisting for the last 24 hrs. Chest xray was negative for acute findings. Patient reported chest pressure and nausea which were resolved. Chest xray negative negative. symptoms due to COPD. Patient had been at [facility] on admission on 12/01 for significant hypotension [...] facility only provides lidocaine patches. BUDDY JOE [address] [place] [address], [address], [place], [address], [facility] 12/14/2024 14:39:08 12/19/2024 text/html This is a 59 yo woman on home O2 who is here for rehab after an acute hospitalization for acute on chronic hypoxic resp failure due to COPD and CHF exacerbations. She had initially beenhospitalized at [facility] from 12/01- for significant hypotension status post [...] PT or OT. She then returned to [facility] ED on 12/07with SOB and CP with [...] minimal shortness breath. [facility] to [facility] for [facility] rehab and 5 more [...] things without relief.She has a PCP and suspect artist to f/u with as outpt. We discuss prednisone taper as outpt and she wonders about getting a 2nd opinion in [place] about CHF/COPD issues.She also tell me she [...] nephrolithiasis, and urinary incontinence. Perla Jacobo MD [address] [place] [address], [address], [place], [address], [facility] 12/19/2024 21:28:48 OBGyn Episode No OBEpisode recorded.
--- OUTSIDE RECORDS SUMMARY | 2025-06-01 11:16 | XMS_ITS | Clinical Summary ---
Author Organization [facility] Address [address] [place] [phone] Phone Care Team Providers Care Patient Care Representative Name Role Phone Jn Cardoza MD Unavailable Denys Henriquez MD Unavailable Antione Segura PA-C Primary Care Provider Rhett Cortez MD Unavailable Allergies Active Allergy [...] DAY NEEDED FOR PAIN 8 tablet Active atorvastatin (LIPITOR) 80 MG tabletIndications: Mixed [...] by mouth daily. X 4 days Active furosemide (LASIX) 20 MG tablet Take 1 tablet (20 mg total) by mouth daily. 30 tablet 1 Active oxyCODONE 5 MG immediate release tabletIndications: Acute right-sided low back pain without sciatica Take 1 tablet (5 mg total) by mouth every 6 (six) hours as needed for pain (specific location in comments). 28 tablet Active albuterol 90 mcg/actuation inhaler INHALE [...] mouth daily. 7 tablet 2024 Discontinued(R eorder) oxyCODONE 5 MG immediate release tabletIndications: Acute right-sided low back pain without sciatica Take 1 tablet (5 mg total) by mouth every 6 (six) hours as needed for pain (specific location in comments). 28 tablet 2024 Discontinued(R eorder) predniSONE (DELTASONE) 20 [...] A-fib and have her follow-up with the prototype machinist Acute on chronic hypoxic respiratory failure Assessment & Plan (05/29/2025 12:48 PM EST): Patient with a history of several admissions to [facility] within the last 3 months secondary [...] respiratory therefore I did reach out to [facility] pulmonary and patient does have an appointment on 07/03/[address] Akins. She was also advised to undergo pulmonary function tests which have been ordered. -Patient will continue Lasix 20 mg daily. -She will continue to monitor her blood pressures closely at home she will hold her Lasix if her systolic blood pressure is less than 110 -She will follow-up with [facility] pulmonary for second opinion on 07/03 -She will continue her supplemental oxygen -Patient was advised that if her shortness of breath increased she will need to call 911 and be transferred to the hospital. Assessment & Plan (05/16/2025 6:10 PM EST): Patient has had several admissions to [facility] within the last 3 months for [...] upcoming appointment scheduled for follow-up with her supervisor orchard in the next 2 weeks however feels as though is that she would like a second opinion as she feels that she has not been getting adequate care. She also mentions that she has an upcoming appointment with a prototype machinist in a couple of weeks with her [...] I did advise the and gave him [facility] [employer]. at [address] [place] [address] in [facility] [phone] which is a nonprofit [employer] that helps distribute medical supplies to patients [...] 110. -She is to follow-up with her prototype machinist as scheduled -I have placed a referral to [facility] pulmonology for second opinion -[facility] paperwork filled out for the Assessment & Plan (03/28/2025 4:20 PM EDT): Patient was recently admitted to [facility] from 03/13-03/19 for acute on chronic hypoic [...] L. She has to follow-up with her supervisor orchard and to schedule another sleep study to be completed. Assessment & Plan (12/28/2024 6:54 PM EDT): Respiratory status improved on course of antibiotics and prednisone. Continue deep breathing and monitor for any worsened respiratory status. Monitor home spO2. Continue benzonatate prn. Continue O2 therapy as prescribed. Referral placed to [facility] Pulmonology. Trigeminal neuralgia 12/28/2024 Assessment [...] last year and this was completed at [facility] through her prototype machinist -Her blood pressures have been not well-controlled [...] daily. She follows with Dr. Thurman at [facility]. Patient follows regularly with him. Her [...] Does have outpatient stress test scheduled with [facility] Cardiology. Discussed that results would indicate future management and whether that may include cardiac catheterization. I do not see record of this within her discharge summary from [facility] Assessment & Plan (12/22/2023 9:33 AM EDT): [...] should be seen and followed by a smoking tobacco cutter operator which she does already have appointment scheduled [...] how this is not appropriate given prescribed [employer] for pain and risk of [employer] FIBRE DRAWER depression. She is aware of these risks and agrees to continuing medication as prescribed. She understands that she can contact the office should she be interested in discussion of medication regimen. Assessment & Plan (11/01/2023 10:20 AM EDT): PHQ9 Flowsheet Row Office Visit from 10/28/2023 in [facility] PHQ-9 Total Score 24 Results [...] study and speech evaluation when inpatient at [place]. Discussed referral to gastroenterology discussed potential of [...] does have an upcoming appointment with her supervisor orchard next week. Of note she also saw another supervisor orchard Remy Bautista out at [facility] pulmonary and has a follow-up with [...] follows closely with Dr. Henriquez out of [facility]. She is on Daliresp, DuoNebs and [...] a scheduled appointment on 12/18 with her supervisor orchard. She is hoping to get this moved [...] follows closely with Dr. Henriquez out of [facility]. She is on Daliresp, DuoNebs and [...] Continue prednisone as prescribed upon discharge from [facility]. Discussed concern for coronary requirement of nebulizer treatments and albuterol rescue inhaler. We also reviewed the importance of vaping cessation, she remains precontemplative. She does have follow-up appointment scheduled with Dr. Henriquez and has resumed VNA services. Assessment & Plan (11/29/2023 5:28 PM EDT): Recent admission for COPD exacerbation with acute hypoxemic respiratory failure. Current supervisor orchard is Dr. Henriquez at [facility]. She is interested in establishing care with [facility] pulmonology some of her specialists are within the [facility] system for better continuity of care. She understands that she should continue with Dr. Sevilla until she is able to establish care with [facility] Hypoxemia requiring supplemental oxygen 03/11/2023 10/12/2024 [...] EST): Continue follow-up with Dr. 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 We discussed concern for OPT[employer] FIBRE DRAWER depression and need to minimize use especially [...] 3 times daily and she was on [employer] however during her last hospital stay this [...] Encounters Date Type Department Care Team Description 05/31/2025 11:00 AM EST Home Care Visit [facility] [address] [place] [phone] Raisa Bautista JAR FILLER HOME VISIT 05/31/2025 2:00 AM EST Home Care Visit [facility] [address] [place] [address] Rich Mariscal LPN LPN HOME VISIT 05/30/2025 Refill [facility] [address] [place] [address] Antione Segura PA-C Medication Refill 05/30/2025 Orders Only [facility] [address] [place] [address] Provider, MD Omar 05/29/2025 8:20 AM EST Office Visit [facility] [address] [place] [address] Antione Segura PA-C Acute on chronic hypoxic respiratory failure (Primary Dx) 05/29/2025 Episode Documentation Update [facility] [address] [place] [address] Margy Rubalcava 05/28/2025 1:30 PM EST Home Care Visit [facility] [address] [place] [address] Raisa Bautista JAR FILLER HOME VISIT 05/28/2025 1:30 AM EST Home Care Visit [facility] [address] [place] [address] Rich Mariscal LPN PBX REPAIRER HOME VISIT 05/24/2025 2:30 AM EST Home Care Visit [facility] [address] [place] [address] Raisa Bautista JAR FILLER HOME VISIT 05/24/2025 2:30 AM EST Home Care Visit [facility] [address] [place] [address] Rich Mariscal LPN LPN HOME VISIT 05/23/2025 Telephone [facility] Pulmonology, Allergy and Critical [facility] Medicine [facility] [address] [place] [address] Celso Akins MD 05/21/2025 12:00 PM EST Home Care Visit [facility] [address] [place] [phone] Yane Lanza, PT PT EVALUATION 05/21/2025 11:00 AM EST Home Care Visit [facility] [address] [place] [phone] Shakira Hand RN SN HOME VISIT 05/18/2025 Enrollment [facility] [address] [place] [address] 05/18/2025 Telephone [facility] [address] [place] [address] Antione Segura PA-C VNA Orders 05/18/2025 Plan of Care Documentation [facility] [address] [place] [phone] 05/17/2025 10:30 AM EST Home Care Visit [facility] [address] [place] [phone] Shakira Hand, HUA SN OASIS START OF CARE (SOC) 05/17/2025 Refill [facility] [address] [place] [address] Antione Segura PA-C Medication Refill 05/17/2025 Orders Only [facility] [address] [place] [address] Antione Segura PA-C Chronic obstructive pulmonary disease, unspecified COPD type (Primary Dx) 05/17/2025 Telephone [facility] [address] [place] [address] Antione Segura PA-C Pre-op Consent 05/16/2025 11:20 AM EST Office Visit [facility] [address] [place] [address] Antione Segura PA-C Chronic obstructive pulmonary disease, unspecified COPD type (Primary Dx); Nonrheumatic aortic valve stenosis; Acute on chronic hypoxic respiratory failure 05/16/2025 Home Care Visit [facility] [address] [place] [phone] Lelo Roa, RN CASE COMMUNICATION 05/14/2025 Orders Only [facility] [address] [place] [phone] Homehealth, Raeann Cooley MD 05/13/2025 Home Care Visit [facility] [address] [place] [phone] Maritza Calix, HUA CASE COMMUNICATION 05/12/2025 Home Care Visit [facility] [address] [place] [phone] Maritza Calix, HUA CASE COMMUNICATION 05/10/2025 Home Care Visit [facility] [address] [place] [phone] Krista Iniguez, HUA CASE COMMUNICATION 05/07/[address] [phone] Antione Segura PA-C 05/07/2025 Refill [facility] [address] [place] [address] Juana Solis PA-C Medication Refill 05/07/2025 Telephone [facility] [address] [place] [address] Antione Segura PA-C 05/06/[address] [phone] Antione Segura PA-C Medication Refill 05/03/2025 Telephone [facility] [address] [place] [address] Antione Segura PA-C TCM Visit (Unable to schedule) 05/03/2025 Orders Only [facility] [address] [place] [address] Homehealth, Interface MD Lenora 05/03/2025 Lab Requisition [facility] [address] [place] [address] Nba Roberson MD Peripheral vascular disease, unspecified 04/30/2025 Episode Documentation Update [facility] [address] [place], [place] [phone] Deysi Hartmann 04/27/2025 Telephone [facility] [address] [place] [address] Vilma Velázquez Care Coordination 04/27/2025 Home Care Visit [facility] [address] [place], [place] [phone] Shakira Hand RN SN NON OASIS DISCHARGE NON VISIT/TELEPHONE 04/26/2025 Lab Requisition [facility] [address] [place] [address] Rosario Rodriguez SLURRY CONTROL OPERATOR HELPER Illness, unspecified 04/25/2025 2:00 AM EST Home Care Visit [facility] [address] [place] [address] Shakira Hand RN SN OASIS TRANSFER 04/25/2025 Telephone [facility] [address] [place], [place] [phone] Antione Segura PA-C CT Neck 04/23/2025 Orders Only [facility] [address] [place], [place] [phone] ProviderOmar MD 04/20/2025 1:30 PM EST Home Care Visit [facility] [address] [place] [phone] Shakira Hand RN SN HOME VISIT 04/20/2025 Home Care Visit [facility] [address] [place], [place] [phone] Yane Lanza, PT PT EVALUATION 04/19/2025 10:30 AM EST Home Care Visit [facility] [address] [place], [place] [phone] Shakira Hand, HUA SN HOME VISIT 04/19/2025 Telephone [facility] [address] [place], [place] [phone] Elida Lindquist RN Swelling 04/19/2025 Refill [facility] [address] [place], [place] [phone] Sirisha Huertas FNP Medication Refill 04/18/2025 12:00 PM EST Home Care Visit [facility] [address] [place] [address] Shakira Hand, HUA SN OASIS RESUMPTION OF CARE (VERONIKA) 04/18/2025 Home Care Visit [facility] [address] [place] [address] Viktoriya Taylor, RN TELEPHONE ENCOUNTER 04/16/2025 Orders Only [facility] [address] [place], [place] [phone] Provider, MD Omar 04/15/2025 Home Health Resumption of Care Planning [facility] [address] [place], [place] [phone] Dennise Rodriguez, HUA 04/13/2025 Telephone [facility] [address] [place] [address] Vilma Velázquez Care Coordination 04/12/2025 3:00 PM EDT Home Care Visit [facility] [address] [place], [place] [phone] Thao Kennedy CASE COMMUNICATION 04/12/2025 Home Care Visit [facility] [address] [place] [phone] Shakira Hand, HUA SN OASIS TRANSFER 04/12/2025 Documentation [facility] [address] [place], [place] [phone] Antione Segura PA-C 04/12/2025 Orders Only [facility] [address] [place], [place] [phone] ProviderOmar MD 04/11/2025 Refill [facility] [address] [place], [place] [phone] Elida Lindquist RN TCM Visit 04/10/2025 Telephone [facility] [address] [place], [place] [phone] Antione Segura PA-C TCM Visit (Needs appt ) 04/10/2025 Telephone [facility] [address] [place], [place] [phone] Antione Segura PA-C Forms & Paperwork 04/09/2025 3:00 PM EDT [facility] [address] [place], [place] [phone] Kennedy Thao L JAR FILLER HOME VISIT 04/09/2025 Telephone [facility] [address] [place], [place] [phone] Janay Naidu Care Coordination 04/09/2025 Orders Only [facility] [address] [place], [place] [phone] ProviderOmar MD 04/07/2025 Refill [facility] [address] [place], [place] [phone] Antione Segura PA-C Medication Refill 04/06/2025 11:45 AM EDT - 04/06/2025 11:59 PM EDT Hospital Encounter [facility], [facility] [address] [place] [address] Antione Segura PA-C Discharge Disposition: Home or Self Care 04/06/2025 Orders Only [facility] [address] [place] [address] Antione Segura PA-C Abnormal finding on imaging (Primary Dx); Allergic reaction to contrast material, subsequent encounter 04/05/2025 3:00 PM EDT Home Care Visit [facility] [address] [place] [phone] Thao Kennedy JAR FILLER HOME VISIT 04/05/2025 2:00 AM EDT Home Care Visit [facility] [address] [place] [phone] Rich Mariscal LPN LPN HOME VISIT 04/05/2025 Episode Documentation Update [facility] [address] [place] [phone] Margy Rubalcava 04/04/2025 Episode Documentation Update [facility] [address] [place] [phone] Margy Rubalcava 04/03/2025 Episode Documentation Update [facility] [address] [place] [phone] Margy Rubalcava 04/02/2025 2:00 PM EDT Home Care Visit [facility] [address] [place] [address] Thao Kennedy JAR FILLER HOME VISIT 04/02/2025 Episode Documentation Update [facility] [address] [place] [phone] Margy Rubalcava 03/30/2025 Episode Documentation Update [facility] [address] [place] [phone] Margy Rubalcava 03/29/2025 3:00 PM EDT Home Care Visit [facility] [address] [place] [address] Kennedy, Thao L JAR FILLER HOME VISIT 03/29/2025 11:30 AM EDT Home Care Visit [facility] [address] [place], [place] [phone] Shakira Hand RN SN HOME VISIT 03/29/2025 Telephone [facility] [address] [place] [address] Janay Naidu Care Coordination 03/29/2025 Episode Documentation Update [facility] [address] [place] [address] Margy Rubalcava 03/28/2025 2:32 PM EDT - 03/28/2025 11:59 PM EDT Hospital Encounter [facility], [address] [address] Antione Segura PA-Bebe Discharge Disposition: Home or Self Care 03/28/2025 9:40 AM EDT Office Visit [facility] [address] [place] [address] Antione Segura PA-C Acute right-sided low back pain without sciatica (Primary Dx); Depression, unspecified depression type; Dizziness and giddiness; Acute on chronic hypoxic respiratory failure 03/28/[address] [address] Janay Naidu Care Coordination 03/28/2025 Telephone [facility] [address] [place] [address] Antione Segura PA-C Results 03/28/2025 Procedure Pass [facility], [address] [address] 03/28/2025 Episode Documentation Update [facility] [address] [place] [address] Margy Rubalcava 03/27/2025 Home Care Visit [facility] [address] [place] [address] Thao Kennedy JAR FILLER HOME VISIT 03/21/2025 1:30 PM EDT Home Care Visit [facility] [address] [place] [address] Shakira Hand, RN SN OASIS RESUMPTION OF CARE (VERONIKA) 03/21/[address] [phone] Antione Segura PA-C 03/20/2025 Home Health Resumption of Care Planning [facility] [address] [place] [address] Koki Simons RN 03/16/2025 4:30 AM EDT Home Care Visit [facility] [address] [place] [address] Shakira Hand, HUA SN OASIS TRANSFER 03/15/[address] [phone] Antione Segura PA-C Medication Refill 03/13/2025 Orders Only [address] [phone] Provider, MD Omar 03/08/2025 1:00 AM EDT Home Care Visit [facility] [address] [place] [address] Rich Mariscal LPN PBX REPAIRER HOME VISIT 03/08/[address] [phone] Antione Segura PA-C Medication Refill 03/08/[address] [phone] Pete Hicks PA-C Medication Refill 03/08/[address] [phone] Antione Segura PA-C Medication Refill 03/06/2025 Episode Documentation Update [facility] [address] [place] [phone] Bratic, Stanislavka 03/05/2025 Episode Documentation Update [facility] [address] [place] [phone] Bratic, Stanislavka 03/04/2025 Episode Documentation Update [facility] [address] [place] [phone] Bratic, Stanislavka 03/02/2025 Episode Documentation Update [facility] [address] [place] [phone] Bratic, Stanislavka 03/02/2025 Telephone [facility] [address] [place], [place] [phone] Antione Segura, MIREYA [facility] referral request from Last 3 Months Immunizations Immunization Administration [...] high school, GED, job training, learning the Guaman[place] language, technical skills, or developing parenting skills)? [...] EST Inhaled Oxygen Concentration - - Weight 100.2 kg (221 lb) 05/29/2025 8:05 AM EST Height 156.2 cm (5' 1.5 ) 05/29/2025 8:05 AM EST Body Mass Index 41.09 05/29/2025 8:05 AM EST Plan of Treatment Upcoming Encounters Date Type Department Care Team (Late st Contact Info) Description 06/04/2025 12:30 AM EST Appointment [facility] [address] [place], [place] [phone] Shakira Hand RN [address] [place] [address] [email or web address] 06/05/2025 1:00 AM EST Appointment [facility] [address] [place], [place] [phone] Raisa Bautista [address] [place] [address] [email or web address] 06/06/2025 12:30 AM EST Appointment [facility] [address] [place] [phone] Lily Raisa Lawler [address] [place] [address] [email or web address] 06/12/2025 1:30 AM EST Appointment [facility] [address] [place] [phone] Shakira Hand, HUA [address] [place] [address] [email or web address] 06/12/2025 2:00 AM EST Appointment [facility] [address] [place] [phone] Lily Raisa Nuris [address] [place] [phone] [email or web address] 06/13/2025 2:00 PM EST Hospital Encounter [facility] [address] [place] [phone] Antione Segura PA-C [address] [place] [phone] [email or web address] 06/14/2025 1:00 AM EST Appointment [facility] [address] [place] [address] Lily Raisa M [address] [place] [phone] [email or web address] 06/19/2025 1:00 AM EST Appointment [facility] [address] [place] [phone] Lily Raisa Nuris [address] [place] [address] [email or web address] 06/19/2025 2:00 AM EST Appointment [facility] [address] [place] [phone] Shakira Hand, HUA [address] [place] [address] 06/21/2025 1:00 AM EST Appointment [facility] [address] [place] [phone] Lily, Raisa M [address] [place] [address] 06/25/2025 9:30 AM EST Telemedicine [facility] Neurology [address] [address] Jn Cardoza MD [address] [facility] [address] [place] [address] 06/26/2025 1:00 AM EST Appointment [facility] [address] [place] [phone] Lily Raisa M [address] [place] [address] 06/27/2025 Appointment [facility] [address] [place] [phone] Shakira Hand, HUA [address] [place] [address] 06/28/2025 1:00 AM EST Appointment [facility] [address] [place] [phone] Lily Raisa M [address] [place] [address] 07/03/2025 1:00 AM EST Appointment [facility] [address] [place] [phone] Lily Raisa M [address] [place] [address] 07/03/2025 1:00 PM EST Office Visit [facility] Pulmonology, Allergy and Critical Care Medicine Clinic [address] [facility] [place] [address] Celso Akins MD [address] [place] [address] 07/04/2025 Appointment [facility] [address] [place], [place] [phone] Shakira Hand RN [address] [place] [address] 07/04/2025 11:20 AM EST Office Visit [facility] [address] [place] [address] Antione Segura PA-C [address] [place] [address] 07/05/2025 1:00 AM EST Appointment [facility] [address] [place], [place] [phone] Raisa Bautista [address] [place] [address] 07/10/2025 1:00 AM EST Appointment [facility] [address] [place], [place] [phone] Raisa Bautista [address] [place] [address] 07/11/2025 Appointment [facility] [address] [place], [place] [phone] Shakira Hand RN [address] [place] [address] 08/21/2025 10:30 AM EDT Appointment [facility] [address] [place] [address] Antione Segura PA-C [address] [place] [address] @[employer] [facility] Health Maintenance Due Date Last Done Comments COLOGUARD 01/09/2008 FIT TEST 01/09/2008 FOBT 01/09/2008 SIGMOIDOSCOPY 01/09/2008 VIRTUAL COLONOSCOPY 01/09/2008 ZOSTER VACCINES (1 of 2) 2013 PAP SMEAR 02/21/2023 02/22/2020, 02/12, 08/27/2014 COLONOSCOPY 12/05/2023 12/04/2013, 12/04/2013 COLORECTAL CANCER SCREENING 12/05/2023 Adult Td,Tdap Booster 12/30/2023 12/29/2013 BLOOD PRESSURE 11/29/2025 05/31/2025 LUNG CANCER SCREENING (LDCT Only) 12/21/2025 12/21/2024, [...] Comments OUTSIDE XR CHEST REPORT ONLY Routine 05/29/2025 8:45 AM EST OUTSIDE ECHO Routine 05/14/2025 2:05 PM EST [...] Maintenance Results * Outside XR??Chest Report Only (05/29/2025 8:45 AM EST) us Historical Provider IMG XR CHEST Final Res ult * Outside Echo Report Only (05/14/2025 2:05 PM EST) us Historical Provider CV ECHO ORDERABLES Final Result * (ABNORMAL) Comprehensive Metabolic Panel (CMP) (05/03/2025 4:40 AM EST) Only the most recent of2 resultswithin the time period is included. Sodium 140 136 - 145 mmol/L 05/03/2025 7:15 AM EST [facility] Potassium 3.7 3.4 - 5.1 mmol/L 05/03/2025 7:15 AM [facility] Chloride 98 98 - 107 mmol/L 05/03/2025 7:15 AM [facility] CO2 33(H) 20 - 31 mmol/L 05/03/2025 7:15 AM [facility] Anion Gap 9 3 - 17 mmol/L 05/03/2025 7:15 AM [facility] BUN 10 6 - 23 mg/dL 05/03/2025 7:15 AM [facility] Creatinine 0.50 0.50 - 1.00 mg/dL 05/03/2025 7:15 AM [facility] eGFR 106 >59 mL/min/1.7 3m2 05/03/2025 7:15 AM [facility] Comment:Estimated glomerular filtration rate calculated using the CKD-EPI refit equation. Glucose 124(H) 70 - 99 mg/dL 05/03/2025 7:15 AM [facility] Calcium 9.3 8.5 - 10.5 mg/dL 05/03/2025 7:15 AM [facility] AST 17 <33 U/L 05/03/2025 7:15 AM [facility] ALT 14 <34 U/L 05/03/2025 7:15 AM [facility] Alkaline Phosphatase 60 40 - 130 U/L 05/03/2025 7:15 AM [facility] Bilirubin, Total <0.2 0.0 - 1.2 mg/dL 05/03/2025 7:15 AM [facility] Total Protein 6.2(L) 6.4 - 8.3 g/dL 05/03/2025 7:15 AM [facility] Albumin 3.6 3.5 - 5.2 g/dL 05/03/2025 7:15 AM [facility] Globulin 2.6 1.9 - 4.1 g/dL 05/03/2025 7:15 AM [facility] Blood (Blood) 05/03/2025 4:4 0 AM EST 05/03/2025 6:06 AM EST us Nba Roberson MD LAB BLOOD BKR ORDERABLES Final R esult [facility] [address] [place] [address] * (ABNORMAL) CBC (05/03/2025 4:40 AM EST) Only the most recent of2 resultswithin the time period is included. WBC 8.32 4.00 - 11.00 K/uL 05/03/2025 6:44 AM [facility] RBC 3.33(L) 4.00 - 5.20 M/uL 05/03/2025 6:44 AM [facility] Hemoglobin 10.1(L) 12.0 - 16.0 g/dL 05/03/2025 6:44 AM [facility] Hematocrit 32.5(L) 36.0 - 46.0 % 05/03/2025 6:44 AM [facility] MCV 97.6 80.0 - 100.0 fL 05/03/2025 6:44 AM [facility] MCH 30.3 27.0 - 31.0 pg 05/03/2025 6:44 AM [facility] MCHC 31.1(L) 32.0 - 36.0 g/dL 05/03/2025 6:44 AM [facility] PLT 356 150 - 450 K/uL 05/03/2025 6:44 AM [facility] MPV 9.5 8.4 - 12.0 fL 05/03/2025 6:44 AM [facility] RDW-CV 15.5(H) 11.5 - 14.5 % 05/03/2025 6:44 AM [facility] Absolute NRBC 0.02(H) <=0.00 K cells/uL 05/03/2025 6:44 AM [facility] NRBC 0.2(H) <=0.0 /100 WBCs 05/03/2025 6:44 AM [facility] Blood (Blood) 05/03/2025 4:4 0 AM EST 05/03/2025 6:06 AM EST us Nba Roberson MD LAB BLOOD BKR ORDERABLES Final R esult [address] [address] * Outside Imaging Report Only (04/20/2025 8:10 AM EST) Result [facility] Provider IMG XR CHEST Final Res ult * Outside XR??Chest Report Only (04/20/2025 7:44 AM EST) Result [facility] Provider IMG XR CHEST Final Res ult * Outside Imaging Report Only (04/16/2025 7:39 AM EST) Result [facility] Provider IMG XR CHEST Final Res ult * Outside XR??Chest Report Only (04/11/2025 8:35 AM EDT) Result [facility] Provider IMG XR CHEST Final Res ult * Outside Potassium Level (04/11/2025) Only the most recent of2 resultswithin the time period is included. Potassium level - External 4.0 3.4 - 5.0 mmol/L Result [facility] LAB BLOOD ORDERABLES Mariya l Result * (ABNORMAL) Outside Serum Creatinine Level (04/11/2025) Only the most recent of2 resultswithin the time period is included. Creatinine, serum - External 0.68(A) 0.8 - 1.3 mg/dL Result [facility] Provider LAB BLOOD ORDERABLES Mariya l Result * Outside ALT Level (04/11/2025) Only the most recent of2 resultswithin the time period is included. ALT - External 20 5 - 30 U/L Result [facility] LAB BLOOD ORDERABLES Mariya l Result * Outside Lab (04/08/2025 1:09 PM EDT) Result [facility] Provider LAB BLOOD BKR ORDERABLES Final Result * Outside Imaging Report Only (04/08/2025 7:50 AM EDT) us Historical Provider MD DAWKINS XR CHEST Final Res ult * US Soft Tissues of Head and Neck (Salivary Gland) (04/06/2025 12:20 PM EDT) MGB IMG RECOMMENDATION COMMENT parotid lesion [facility] Anatomical Region Laterality Modality Neck, Head Ultrasound [...] clinician's provided indication for this examination in [facility]: Parotid region mass TECHNIQUE: Ultrasound [...] clinician's provided indication for this examination in [facility]:Parotid region mass TECHNIQUE: Ultrasound of [...] CONTRAST (03/28/2025 2:46 PM EDT) MGB IMG FUR TINTER COMMENT see results [facility] Anatomical Region Laterality Modality Head Computed Tomogra phy 03/28/2025 2:54 PM EDT Impressions 03/28/2025 3:15 PM EDT 1. No acute intracranial findings. No evidence of acute infarct or hemorrhage. 2. Left parotid gland nodular density. Follow-up parotid ultrasound or neck CT with contrast recommended. A clinically significant result was initiated on 03/28/2025 3:15 PM, Message ID [id number]. Narrative 03/28/2025 3:[address] HEAD [...] was initiated on 03/28/2025 3:15 PM,Message ID [id number]. Antione Segura PA-C IMG CT HEAD/NECK Final Result * Outside XR??Chest Report Only (03/13/2025 8:23 AM EDT) Historical Provider MD DAWKINS XR CHEST Final Res ult * HM MAMMOGRAPHY FOR RESULT ENTRY ONLY (02/14/2025 2:39 PM EDT) Historical Provider HEALTH MAINTENANCE Final Result * LDCT PROCEDURE FOR RESULT ENTRY ONLY (12/21/2024) LDCT - External CTA chest, juanito pulm nodules Historical Provider HEALTH MAINTENANCE Final Result * [...] RISK RATIO 4.4 3.3 - 4.4 C [facility] Blood 08/22/2021 8:13 AM EST 08/22/2021 8:17 AM EST Jennifer Duke SLURRY CONTROL OPERATOR HELPER LAB BLOOD BKR ORDERABLES Final Result [address] [address] * Pap Smear (02/22/2020 12:00 AM EDT) 02/22/2020 02/23/2020 8:2 1 AM EDT Narrative SEE NARRATIVE - 02/27/2020 11:20 AM EDT [address] [address] Industrial Chemistry Teacher: Perla Luis MD CHANGE RELEASE MANAGER Cytology Report FINAL DIAGNOSIS A. PAP SMEAR [...] 52, 56, 58, 59, 66, 68) by [employer] Redefined HR-HPV analysis. Clinical correlation is advised. This HPV test was performed at [facility], [address] [place] [address]. This test has been FDA approved for [employer] cervical cytology specimens. The accuracy and precision of this test for all other specimen sources has been verified in the Cytopathology Laboratory of the [facility] and has not been cleared or approved by the U.S. Food and Drug Administration. Clinical correlation is advised. CLINICAL HISTORY Date of Last Menstrual Period: 2009 Menstrual History: Post Menopausal Other Clinical Conditions: Screening Pap SPECIMEN SOURCE A: PAP SMEAR (SUREPATH) CE Patient Name: MAYRA CONSTANTINO : 1965 (Age: 55) Sex: F Institution: [facility] Location: [facility] Date of Collection: 02/22/2020 Date of [...] NP LAB BLOOD BKR ORDERABLES Final Result [address] [address] * COLONOSCOPY FOR RESULT ENTRY ONLY (12/04/2013) Colonoscopy repeat 10 yrs us Historical Provider MD HEALTH MAINTENANCE Final Result from Last 3 Months or Most Recently Relevant to Health Maintenance Insurance [facility] Address[facility] [address] [place] [address] MEDICARE A [facility] Address: [address] [place] [address] MEDICARE A [facility] MEDIC[facility] A [facility] Address[facility] [address] [place] [address] MEDICARE A [facility] MEDICARE A [facility] MEDIC[facility] A Advance Directives For more information, please contact: [phone] (9AM - 5PM [facility], Wednesday-Wednesday) Documents on File Type Date Recorded Patient Fitting Supervisor Expl anation Healthcare Proxy 03/28/2025 [facility] Health Care Proxy Form scan 03/28/2025 [facility] 02/15/2025 [facility]OL[facility] * Full Code (Latest Code Status on File) Date Activated Date Inactivated Comments 02/15/2025 9:52 AM Question Answer Comments Code Status Confirmed With: Patient Care Teams Patient Care Representative Relationship Specialty Start Date End Date Antione Segura PA-C [address] [place] [address] PCP - General Physician Sales Leader 10/12/24 Jn Cardoza MD [address] [place] [address], [address] [place] [address] Neurology 02/03/24 Denys Henriquez MD [address] [place] [address] [place] [address] Pulmonary Disease 02/03/24 Rhett Cortez MD [address] [place] [address] [email or web address] Insurance Assigned Provider 01/20/25 Additional Source Comments The information contained in this document represents components of the legal health record. It is not the complete legal health record.[facility]
--- OUTSIDE RECORDS SUMMARY | 2025-06-01 11:16 | XMS_ITS | Encounter Summary ---
Author Organization [facility] Address [address] [address] Phone Care Team Providers Care Automobile Rental Agent Name Role Phone Jn Cardoza MD Unavailable Denys Henriquez MD Unavailable [phone] Liyah Patterson MD Unavailable Antione Segura-C Primary Care Provider Rhett Cortez MD Unavailable Encounter Details Date Type Department Care Team (Late st Contact Info) Description 12/06/2024 Home Health Resumption of Care Planning [facility] [address] [place] [address] Diana Torres, RN [address] [place] [address] [email or web address] Social History Tobacco Use Types Packs/Day [...] Description 06/04/2025 12:30 AM EST Appointment [facility] [address] [place] [phone] Shakira Hand RN [address] [place] [address] [email or web address] 06/05/2025 1:00 AM EST Appointment [facility] [address] [place] [phone] Raisa Bautista [address] [place] [address] [email or web address] 06/06/2025 12:30 AM EST Appointment [facility] [address] [place] [phone] Raisa Bautista [address] [place] [address] [email or web address] 06/12/2025 1:30 AM EST Appointment [facility] [address] [place] [phone] Shakira Hand RN [address] [place] [address] [email or web address] 06/12/2025 2:00 AM EST Appointment [facility] [address] [place] [phone] Raisa Bautista [address] [place] [address] [email or web address] 06/13/2025 2:00 PM EST Hospital Encounter [facility] [address] [place] [address] Antione Segura PA-C [address] [place] [address] 06/14/2025 1:00 AM EST Appointment [facility] [address] [place] [phone] Lily Raisa Nuris [address] [place] [address] 06/19/2025 1:00 AM EST Appointment [facility] [address] [place] [phone] Lily Raisa M [address] [place] [address] 06/19/2025 2:00 AM EST Appointment [facility] [address] [place] [phone] Shakira Hand, HUA [address] [place] [address] 06/21/2025 1:00 AM EST Appointment [facility] [address] [place] [phone] Lily Raisa M [address] [place] [address] 06/25/2025 9:30 AM EST Telemedicine [facility] Neurology Clinic [address] [place] [address] Jn Cardoza MD [address] [facility], [address] [place] [address] 06/26/2025 1:00 AM EST Appointment [facility] [address] [place], [place] [phone] LilyRaisa Nuris [address] [place] [address] 06/27/2025 Appointment [facility] [address] [place], [place] [phone] Shakira Hand RN [address] [place] [address] 06/28/2025 1:00 AM EST Appointment [facility] [address] [place], [place] [phone] [place] [address] 07/03/2025 1:00 AM EST Appointment [facility] [address] [place], [place] [phone] Lily Raisa M [address] [place] [phone] 07/03/2025 1:00 PM EST Office Visit [facility] Pulmonology, Allergy and Critical Care Medicine Clinic [address] [place] [phone] Celso Akins MD [address] [place] [address] 07/04/2025 Appointment [facility] [address] [place] [address] Shakira Hand RN [address] [place] [address] 07/04/2025 11:20 AM EST Office Visit [facility] Primary Care Clinic [address] [place] [phone] Antione Segura PA-C [address] [place] [address] [email or web address] 07/05/2025 1:00 AM EST Appointment [facility] [address] [place] [phone] Raisa Bautista [address] [place] [address] 07/10/2025 1:00 AM EST Appointment [facility] [address] [place] [phone] Raisa Bautista [address] [place] [address] 07/11/2025 Appointment [facility] [address] [place] [phone] Shakira Hand RN [address] [place] [address] 08/21/2025 10:30 AM EDT Appointment [facility] [address] [place] [address] Antione Segura PA-C [address] [place] [phone] documented as of this encounter Visit Diagnoses Not on filedocumented in this encounter Additional Health Concerns Assessment Noted Time PHQ-9 Depression Total Score: 21 025 12:31 PM EDT PHQ-2 Depression Total Score: 6 10/13/19 25 12:31 PM EDT documented as of this encounter Care Teams Automobile Rental Agent Relationship Specialty Start Date End Date Antione Segura PA-C [address] [place] [address] PCP - General Physician Residential Coordinator 10/12/24 Jn Cardoza MD [address] [place] [address], [address] [place] [address] Neurology 02/03/24 Denys Henriquez MD [address] [place] [address] [place] [address] Pulmonary Disease 02/03/24 Liyah Patterson MD [address] [facility] [address]. [address] [place] [address] Insurance Assigned Provider 02/19/24 01/20/25 Rhett Cortez MD [address] [place] [address] Insurance Assigned Provider 01/20/25 documented as of this encounter Additional Source Comments The information contained in this document represents components of the legal health record. It is not the complete legal health record.[facility]
--- OUTSIDE RECORDS SUMMARY | 2025-06-01 11:16 | XMS_ITS | Encounter Summary ---
Author Organization [facility] Address [address] [place] [address] Phone Care Team Providers Care Street Vendor Name Role Phone Lang Germain MD Unavailable [phone] Jennifer Duke OPERATOR ENGINEER Primary Care Provider Sirisha Huertas CARD LACER JACQUARD Primary Care Provider Jn Cardoza MD Unavailable Denys Henriquez MD Unavailable Liyah Patterson MD Unavailable Liyah Patterson MD Primary Care Provider [phone] Antione Segura PA-C Primary Care Provider Rhett Cortez MD Unavailable Encounter Details Date Type Department Care Team (Late st Contact Info) Description 06/30/2022 Procedure Pass [facility], Ct Scan - [address] [address] Social History Tobacco Use Types Packs/Day Years Used Date Smoking Tobacco: Every Day Cigarettes 0.8 43.5 Started: 11/25/1981 Smokeless Tobacco: Never Alcohol [...] Description 06/04/2025 12:30 AM EST Appointment [facility] [address] [place] [phone] Shakira Hand RN [address] [place] [address] [email or web address] 06/05/2025 1:00 AM EST Appointment [facility] [address] [place] [phone] Raisa Bautista [address] [place] [phone] [email or web address] 06/06/2025 12:30 AM EST Appointment [facility] [address] [place] [phone] Raisa Bautista [address] [place] [phone] [email or web address] 06/12/2025 1:30 AM EST Appointment [facility] [address] [place] [phone] Shakira Hand RN [address] [place] [address] [email or web address] 06/12/2025 2:00 AM EST Appointment [facility] [address] [place] [phone] Raisa Bautista [address] [place] [address] [email or web address] 06/13/2025 2:00 PM EST Hospital Encounter [facility] [address] [place] [address] Antione Segura PA-C [address] [place] [email or web address] 06/14/2025 1:00 AM EST Appointment [facility] [address] [place] [phone] Raisa Bautista [address] [place] [address] 06/19/2025 1:00 AM EST Appointment [facility] [address] [place] [phone] Raisa Bautista [address] [place] [address] 06/19/2025 2:00 AM EST Appointment [facility] [address] [place] [phone] Shakira Hand RN [address] [place] [address] 06/21/2025 1:00 AM EST Appointment [facility] [address] [place] [phone] Raisa Bautista [address] [place] [address] 06/25/2025 9:30 AM EST Telemedicine [facility] Neurology Clinic [address] [place] [address] Jn Cardoza MD [address] [facility], [address] [place] [address] 06/26/2025 1:00 AM EST Appointment [facility] [address] [place] [phone] Raisa Bautista [address] [place] [address] 06/27/2025 Appointment [facility] [address] [place] [phone] Shakira Hand RN [address] [place] [address] 06/28/2025 1:00 AM EST Appointment [facility] [address] [place] [phone] Raisa Bautista [address] [place] [address] 07/03/2025 1:00 AM EST Appointment [facility] [address] [place] [address] Raisa Bautista [address] [place] [address] 07/03/2025 1:00 PM EST Office Visit [facility] Pulmonology, Allergy and Critical Care Medicine Clinic [address] [place] [phone] Celso Akins MD [address] [place] [address] 07/04/2025 Appointment [facility] [address] [place] [address] Shakira Hand RN [address] [place] [address] 07/04/2025 11:20 AM EST Office Visit [facility] Primary Care Clinic [address] [place] [address] Antione Segura PA-C [address] [place] [address] 07/05/2025 1:00 AM EST Appointment [facility] [address] [place] [phone] Raisa Bautista [address] [place] [address] 07/10/2025 1:00 AM EST Appointment [facility] [address] [place] [phone] Raisa Bautista [address] [place] [address] 07/11/2025 Appointment [facility] [address] [place] [phone] Shakira Hand RN [address] [place] [address] 08/21/2025 10:30 AM EDT Appointment [facility] [address] [place] [address] Antione Segura PA-C [address] [place] [address] [email or web address] documented as of this encounter Visit Diagnoses Not on filedocumented in this encounter Additional Health Concerns Assessment Noted Time PHQ-9 Depression Total Score: 18 023 8:53 AM EST PHQ-2 Depression Total Score: 6 06/26/19 23 8:53 AM EST documented as of this encounter Care Teams Street Vendor Relationship Specialty Start Date End Date Jennifer Duke, OPERATOR ENGINEER [address] [place] [address] PCP - General Family Medicine 01/31/20 06/22/23 Sirisha Huertas FNP [address] [address] [email or web address] PCP - General Nurse Practitioner 06/23/23 08/03/24 Liyah Patterson MD [address] [place] [address] PCP - General Family Medicine 08/04/24 10/11/24 Antione Segura PA-C [address] [place] [phone] [email or web address] PCP - General Physician Marble Machine Tender 10/12/24 Lang Germain MD [address] [place] [address] [email or web address] Insurance Assigned Provider 09/18/23 02/19/24 Jn Cardoza MD [address] [place] [address], [address] [place] [address] [email or web address] Neurology 02/03/24 Denys Henriquez MD [address] [place] [address] [place] [address] Pulmonary Disease 02/03/24 Liyah Patterson MD [address] [place] [address] [email or web address] Insurance Assigned Provider 02/19/24 01/20/25 Rhett Cortez MD [address] [place] [address] [email or web address] Insurance Assigned Provider 01/20/25 documented as of this encounter Additional Source Comments The information contained in this document represents components of the legal health record. It is not the complete legal health record.[facility]
--- OUTSIDE RECORDS SUMMARY | 2025-06-01 11:16 | XMS_ITS | Encounter Summary ---
Author Organization [facility] Address [address] [address] Phone Care Team Providers Care Death Claim Examiner Name Role Phone Jn Cardoza MD Unavailable Denys Henriquez MD Unavailable [phone] Liyah Patterson MD Unavailable Antione Segura-C Primary Care Provider [phone] Rhett Cortez MD Unavailable Encounter Details Date Type Department Care Team (Late st Contact Info) Description 01/09/2025 Home Health [facility] [address] [place] [address] Koki Simons, HUA [address] [place] [address] Social History Tobacco Use Types Packs/Day Years [...] EST Appointment [facility] [address] [place] [phone] Shakira Hand RN [address] [place] [address] [email or web address] 06/05/2025 1:00 AM EST Appointment [facility] [address] [place] [phone] Raisa Bautista [address] [place] [address] [email or web address] 06/06/2025 12:30 AM EST Appointment [facility] [address] [place] [phone] Raisa Bautista [address] [place] [address] [email or web address] 06/12/2025 1:30 AM EST Appointment [facility] [address] [place] [phone] Shakira Hand RN [address] [place] [address] [email or web address] 06/12/2025 2:00 AM EST Appointment [facility] [address] [place] [phone] Raisa Bautista [address] [place] [address] [email or web address] 06/13/2025 2:00 PM EST Hospital Encounter [facility] [address] [place] [address] Antione Segura PA-C [address] [place] [address] [email or web address] 06/14/2025 1:00 AM EST Appointment [facility] [address] [place] [address] Lily Raisa Lawler [address] [place] [address] 06/19/2025 1:00 AM EST Appointment [facility] [address] [place] [address] Lily Raisa Nuris [address] [place] [address] 06/19/2025 2:00 AM EST Appointment [facility] [address] [place] [phone] Shakira Hadn RN [address] [place] [address] 06/21/2025 1:00 AM EST Appointment [facility] [address] [place] [phone] Lily Raisa Nuris [address] [place] [address] 06/25/2025 9:30 AM EST Telemedicine [facility] Neurology Clinic [address] [place] [address] Jn Cardoza MD 22 [facility], 2nd [place] [address] 06/26/2025 1:00 AM EST Appointment [facility] [address] [place] [address] Raisa Bautista [address] [place] [address] 06/27/2025 Appointment [facility] [address] [place] [address] Shakira Hand RN [address] [place] [address] 06/28/2025 1:00 AM EST Appointment [facility] [address] [place] [address] Raisa Bautista [address] [place] [address] 07/03/2025 1:00 AM EST Appointment [facility] [address] [place], [place] [phone] Raisa Bautista [address] [place] [address] 07/03/2025 1:00 PM EST Office Visit [facility] Pulmonology, Allergy [facility] Medicine [facility] [address] [place] [address] Celso Akins MD [address] [place] [address] [phone] 07/04/2025 Appointment [facility] [address] [place] [phone] Shakira Hand RN [address] [place] [phone] 07/04/2025 11:20 AM EST Office Visit [facility] Primary Care Clinic [address] [place] [address] Antione Segura PA-C [address] [place] [address] [email or web address] 07/05/2025 1:00 AM EST Appointment [facility] [address] [place] [address] Raisa Bautista [address] [place] [address] 07/10/2025 1:00 AM EST Appointment [facility] [address] [place] [address] Raisa Bautista [address] [place] [address] 07/11/2025 Appointment [facility] [address] [place] [address] Shakira Hand RN [address] [place] [address] 08/21/2025 10:30 AM EDT Appointment [facility] [address] [place] [address] Antione Segura PA-C [address] [place] [address] documented as of this encounter Visit Diagnoses Not on filedocumented in this encounter Additional Health Concerns Assessment Noted Time PHQ-9 Depression Total Score: 20 025 9:08 PM EDT PHQ-2 Depression Total Score: 6 12/28/19 25 9:08 PM EDT documented as of this encounter Care Teams Death Claim Examiner Relationship Specialty Start Date End Date Antione Segura PA-C [address] [place] [address] PCP - General Physician Charter [employer] Driver 10/12/24 Jn Cardoza MD 22 [facility], 2nd [place] [address] Neurology 02/03/24 Denys Henriquez MD [address] [place] [address] [place] [address] Pulmonary Disease 02/03/24 Liyah Patterson MD 15 [facility] [address]hash. [address] [place] [address] Insurance Assigned Provider 02/19/24 01/20/25 Rhett Cortez MD [address] [place] [address] Insurance Assigned Provider 01/20/25 documented as of this encounter Additional Source Comments The information contained in this document represents components of the legal health record. It is not the complete legal health record.[facility]
--- OUTSIDE RECORDS SUMMARY | 2025-06-01 11:16 | XMS_ITS | Encounter Summary ---
Author Organization [facility] Address [address] [place] [address] Phone Care Team Providers Care Care Process Manager Name Role Phone Charbel Webber MD Unavailable Alverto Gandara MD Unavailable Maikel Rawls MD Unavailable [phone] Jennifer Duke AREA SECRETARY Primary Care Provider Lang Germain MD Primary Care Provider Jennifer Duke AREA SECRETARY Primary Care Provider Lang Germain MD Unavailable Lang Germain MD Primary Care Provider Jennifer Duke AREA SECRETARY Primary Care Provider Lang Germain MD Primary Care Provider Jennifer Duke AREA SECRETARY Primary Care Provider Lang Germain MD Primary Care Provider Jennifer Duke AREA SECRETARY Primary Care Provider Lang Germain MD Primary Care Provider [place], Jennifer L AREA SECRETARY Unavailable [phone] Jennifer Duke AREA SECRETARY Primary Care Provider [phone] Lang Germain MD Primary Care Provider [phone] Jennifer Duke AREA SECRETARY Primary Care Provider [phone] Sirisha Huertas CERTIFIED PHYSICAL THERAPIST ASSISTANT Primary Care Provider [phone] Jn Cardoza MD Unavailable Denys Henriquez MD Unavailable Liyah Patterson MD Unavailable Liyah Patterson MD Primary Care Provider [phone] Antione Segura PA-C Primary Care Provider [phone] Rhtet Cortez MD Unavailable Encounter Details Date Type Department Care Team (Late st Contact Info) Description 09/13/2018 Procedure [facility], [address] [address] Social History Tobacco Use Types Packs/Day Years [...] Info) Description 06/04/2025 12:30 AM EST [facility] [address] [place] [phone] Shakira Hand, HUA [address] [place] [address] 06/05/2025 1:00 AM EST Appointment [facility] [address] [place] [phone] LilyRaisa M [address] [place] [address] 06/06/2025 12:30 AM EST Appointment [facility] [address] [place] [phone] Lily, Raisa M [address] [place] [address] 06/12/2025 1:30 AM EST Appointment [facility] [address] [place] [phone] Shakira Hand RN [address] [place] [address] 06/12/2025 2:00 AM EST Appointment [facility] [address] [place] [address] LilyRaisa M [address] [place] [address] 06/13/2025 2:00 PM EST Hospital Encounter [facility] [address] [place] [address] Antione Segura PA-C [address] [place] [address] 06/14/2025 1:00 AM EST Appointment [facility] [address] [place] [phone] Lily Raisa M [address] [place] [address] 06/19/2025 1:00 AM EST Appointment [facility] [address] [place] [phone] Lily Raisa M [address] [place] [address] 06/19/2025 2:00 AM EST Appointment [facility] [address] [place] [address] Shakira Hand RN [address] [place] [address] 06/21/2025 1:00 AM EST Appointment [facility] [address] [place] [phone] Raisa Bautista [address] [place] [address] 06/25/2025 9:30 AM EST Telemedicine [facility] Neurology Clinic [address] [place] [address] Jn Cardoza MD [address] [place] [address], [address] [place] [address] 06/26/2025 1:00 AM EST Appointment [facility] [address] [place] [address] Raisa Bautista [address] [place] [address] 06/27/2025 Appointment [facility] [address] [place] [address] Shakira Hand RN [address] [place] [address] 06/28/2025 1:00 AM EST Appointment [facility] [address] [place] [address] Raisa Bautista [address] [place] [address] 07/03/2025 1:00 AM EST Appointment [facility] [address] [place], [place] [phone] Raisa Bautista [address] [place] [address] 07/03/2025 1:00 PM EST Office Visit [facility] Pulmonology, Allergy and Critical Care Medicine Clinic [address] [place] [address] [place] [address] Celso Akins MD [address] [place] [address] 07/04/2025 Appointment [facility] [address] [place], [place] [phone] Shakira Hand RN [address] [place] [address] 07/04/2025 11:20 AM EST Office Visit [facility] Primary Care Clinic [address] [place] [address] Antione Segura PA-C [address] [place] [address] 07/05/2025 1:00 AM EST Appointment [facility] [address] [place], [place] [phone] Raisa Bautista [address] [place] [address] 07/10/2025 1:00 AM EST Appointment [facility] [address] [place], [place] [phone] Raisa Bautista [address] [place] [address] 07/11/2025 Appointment [facility] [address] [place], [place] [phone] Shakira Hand RN [address] [place] [address] 08/21/2025 10:30 AM EDT Appointment [facility] [address] [place] [address] Antione Segura PA-C [address] [place] [address] documented as of this encounter Visit Diagnoses Not on filedocumented in this encounter Additional Health Concerns Assessment Noted Time PHQ-2 Depression Total Score: 0 08/20/19 9:13 AM EST documented as of this encounter Care Teams Care Process Manager Relationship Specialty Start Date End Date Jennifer Duke NP [address] [place] [address] PCP - General Family Medicine 09/08/18 09/14/18 Lang Germain MD [address] [place] [address] PCP - General Internal Medicine 09/15/18 10/02/18 Jennifer Duke AREA SECRETARY [address] [place] [address] PCP - General Family Medicine 10/03/18 10/05/18 Lang Germain MD [address] [place] [address] PCP - General Internal Medicine 10/06/18 10/12/18 Jennifre Duke AREA SECRETARY [address] [place] [address] PCP - General Family Medicine 10/13/18 11/09/18 Lang Germain MD [address] [place] [address] [email or web address] PCP - General Internal Medicine 11/10/18 11/22/18 Jennifer Duke AREA SECRETARY [address] [place] [address] PCP - General Family Medicine 11/23/18 11/30/18 Lang Germain MD [address] [place] [address] [email or web address] PCP - General Internal Medicine 12/01/18 12/13/18 Jennifer Duke AREA SECRETARY [address] [place] [address] [email or web address] PCP - General Family Medicine 12/14/18 11/12/19 Lang Germain MD [address] [place] [address] [email or web address] PCP - General Internal Medicine 11/13/19 12/03/19 Jennifer Duke AREA SECRETARY [address] [place] [address] [email or web address] PCP - General Family Medicine 12/04/19 01/23/20 Lang Germain MD [address] [place] [address] [email or web address] PCP - General Internal Medicine 01/24/20 01/30/20 Jennifer Duke, AREA SECRETARY [address] [address] [email or web address] PCP - General Family Medicine 01/31/20 06/22/23 Sirisha Huertas, CERTIFIED PHYSICAL THERAPIST ASSISTANT [address] [address] [email or web address] PCP - General Nurse Practitioner 06/23/23 08/03/24 Liyah Patterson MD [address] [place] [address] [email or web address] PCP - General Family Medicine 08/04/24 10/11/24 Antione Segura PA-C [address] [place] [phone] [email or web address] PCP - General Physician Devops Architect 10/12/24 Charbel Webber MD [address] [place] [address], [address] [place] [address] [email or web address] Historical LMR Provider 04/01/17 0 Alverto Gandara MD [address] [place] [address], 2nd [place] [address] [email or web address] Historical LMR Provider 04/01/17 12/03/19 Maikel Rawls MD [address] [place] [address] [email or web address] Historical LMR Provider 04/01/17 12/03/19 Lang Germain MD [address] [place] [address] Insurance Assigned Provider 09/18/23 02/19/24 Jennifer Duke NP [address] [address] Nurse Practitioner Family Medicine 11/13/19 01/30/20 Jn Cardoza MD 22 [facility], 2nd [place] [address] Neurology 02/03/24 Denys Henriquez MD [address] [place] [address] [place] [address] Pulmonary Disease 02/03/24 Liyah Patterson MD 15 [facility] [address] [place] [address] Insurance Assigned Provider 02/19/24 01/20/25 Rhett Cortez MD [address] [place] [address] Insurance Assigned Provider 01/20/25 documented as of this encounter Additional Source Comments The information contained in this document represents components of the legal health record. It is not the complete legal health record.[facility]
--- OUTSIDE RECORDS SUMMARY | 2025-06-01 11:16 | XMS_ITS | Encounter Summary ---
Author Organization [facility] Address [address] [address] Phone Care Team Providers Care Owner Manager Name Role Phone Jn Cardoza MD Unavailable Denys Henriquez MD Unavailable Antione Segura PA-C Primary Care Provider Rhett Cortez MD Unavailable Encounter Details Date Type Department Care Team (Late st Contact Info) Description 04/15/2025 Home Health Resumption of Care Planning [facility] [address] [place] [address] Dennise Rodriguez, HUA [address] [place] [address] [email or web address] Social History Tobacco [...] Appointment [facility] [address] [place] [phone] Shakira Hand, HUA [address] [place] [address] [email or web address] 06/05/2025 1:00 AM EST Appointment [facility] [address] [place] [phone] Raisa Bautista [address] [place] [address] [email or web address] 06/06/2025 12:30 AM EST Appointment [facility] [address] [place] [phone] Raisa Bautista [address] [place] [address] [email or web address] 06/12/2025 1:30 AM EST Appointment [facility] [address] [place] [phone] Shakira Hand RN [address] [place] [address] [email or web address] 06/12/2025 2:00 AM EST Appointment [facility] [address] [place] [phone] Raisa Bautista [address] [place] [address] [email or web address] 06/13/2025 2:00 PM EST Hospital Encounter [facility] [address] [place] [address] Antione Segura PA-C [address] [place] [address] 06/14/2025 1:00 AM EST Appointment [facility] [address] [place] [phone] Raisa Bautista [address] [place] [address] 06/19/2025 1:00 AM EST Appointment [facility] [address] [place] [address] Raisa Bautista [address] [place] [address] 06/19/2025 2:00 AM EST Appointment [facility] [address] [place] [phone] Shakira Hand RN [address] [place] [address] 06/21/2025 1:00 AM EST Appointment [facility] [address] [place] [phone] Raisa Bautista [address] [place] [address] 06/25/2025 9:30 AM EST Telemedicine [facility] Neurology Clinic [address] [place] [address] Jn Cardoza MD 22 [facility], 2nd [place] [address] 06/26/2025 1:00 AM EST Appointment [facility] [address] [place] [phone] Raisa Bautista [address] [place] [address] 06/27/2025 Appointment [facility] [address] [place] [address] Shakira Hand RN [address] [place] [address] 06/28/2025 1:00 AM EST Appointment [facility] [address] [place] [address] Raisa Bautista [address] [place] [address] 07/03/2025 1:00 AM EST [facility]ment [facility] [address] [place] [address] aRisa Bautista [address] [place] [address] 07/03/2025 1:00 PM EST Office Visit [facility] Pulmonology, Allergy and Critical Care Medicine Clinic [address] [place] [address] Celso Akins MD [address] [place] [address] 07/04/2025 Appointment [facility] [address] [place] [address] Shakira Hand RN [address] [place] [address] 07/04/2025 11:20 AM EST Office Visit [facility] Primary [facility] Clinic [address] [place] [address] Antione Segura PA-C [address] [place] [address] 07/05/2025 1:00 AM EST Appointment [facility] [address] [place] [address] Raisa Bautista [address] [place] [address] 07/10/2025 1:00 AM EST Appointment [facility] [address] [place] [address] Raisa Bautista [address] [place] [address] 07/11/2025 Appointment [facility] [address] [place] [address] Shakira Hand, HUA [address] [place] [address] 08/21/2025 10:30 AM EDT Appointment [facility] [address] [place] [address] Antione Segura PA-C [address] [place] [address] [email or web address] documented as of this encounter Visit Diagnoses Not on filedocumented in this encounter Additional Health Concerns Assessment Noted Time PHQ-9 Depression Total Score: 23 025 3:04 PM EDT PHQ-2 Depression Total Score: 5 03/21/20 25 3:04 PM EDT documented as of this encounter Care Teams Owner Manager Relationship Specialty Start Date End Date Antione Segura PA-C [address] [place] [address] PCP - General Physician Manager Academic 10/12/24 Jn Cardoza MD 22 [facility], 2nd [place] [address] [email or web address] Neurology 02/03/24 Denys Henriquez MD [address] [place] [address] [place] [address] Pulmonary Disease 02/03/24 Rhett Cortez MD [address] [place] [address] [email or web address] Insurance Assigned Provider 01/20/25 documented as of this encounter Additional Source Comments The information contained in this document represents components of the legal health record. It is not the complete legal health record.[facility]
--- OUTSIDE RECORDS SUMMARY | 2025-06-01 11:16 | XMS_ITS | Encounter Summary ---
Author Organization [facility] Address [address] [address] Phone Care Team Providers Care Mental Health Associate Name Role Phone Jn Cardoza MD Unavailable Denys Henriquez MD Unavailable Antione Segura PA-C Primary Care Provider Rhett Cortez MD Unavailable Encounter Details Date Type Department Care Team (Late st Contact Info) Description 05/29/2025 Episode Documentatio n Update [facility] [address] [place] [phone] Margy Rubalcava [address] [place] [address] [email or web address] Social History Tobacco [...] Description 06/04/2025 12:30 AM EST Appointment [facility] [address] [place] [phone] Shakira Hand, HUA [address] [place] [address] [email or web address] 06/05/2025 1:00 AM EST Appointment [facility] [address] [place] [phone] Raisa Bautista [address] [place] [address] [email or web address] 06/06/2025 12:30 AM EST Appointment [facility] [address] [place] [phone] Raisa Bautista [address] [place] [address] [email or web address] 06/12/2025 1:30 AM EST Appointment [facility] [address] [place] [phone] Shakira Hand RN [address] [place] [address] [email or web address] 06/12/2025 2:00 AM EST Appointment [facility] [address] [place] [phone] Raisa Bautista [address] [place] [address] [email or web address] 06/13/2025 2:00 PM EST Hospital Encounter [facility] [address] [place] [address] Antione Segura PA-C [address] [place] [address] [email or web address] 06/14/2025 1:00 AM EST Appointment [facility] [address] [place] [address] Raisa Bautista [address] [place] [address] 06/19/2025 1:00 AM EST Appointment [facility] [address] [place] [address] Raisa Bautista [address] [place] [address] 06/19/2025 2:00 AM EST Appointment [facility] [address] [place] [address] Shakira Hand RN [address] [place] [address] 06/21/2025 1:00 AM EST Appointment [facility] [address] [place] [phone] Raisa Bautista [address] [place] [address] 06/25/2025 9:30 AM EST Telemedicine [facility] Neurology Clinic [address] [place] [address] Jn Cardoza MD 22 [facility], 2nd [place] [address] 06/26/2025 1:00 AM EST Appointment [facility] [address] [place] [phone] Raisa Bautista [address] [place] [address] 06/27/2025 Appointment [facility] [address] [place] [address] Shakira Hand RN [address] [place] [address] 06/28/2025 1:00 AM EST Appointment [facility] [address] [place] [address] Raisa Bautista [address] [place] [address] 07/03/2025 1:00 AM EST Appointment [facility] [address] [place] [address] Raisa Bautista [address] [place] [address] 07/03/2025 1:00 PM EST Office Visit [facility] Pulmonology, Allergy and Critical Care Medicine Clinic [address] [place] [address] Celso Akins MD [address] [place] [address] 07/04/2025 Appointment [facility] [address] [place] [address] Shakira Hand RN [address] [place] [address] 07/04/2025 11:20 AM EST Office Visit [facility] Primary Care Clinic [address] [place] [address] Antione Segura PA-C [address] [place] [address] [email or web address] 07/05/2025 1:00 AM EST Appointment [facility] [address] [place] [address] Raisa Bautista [address] [place] [address] 07/10/2025 1:00 AM EST Appointment [facility] [address] [place] [address] Raisa Bautista [address] [place] [address] 07/11/2025 Appointment [facility] [address] [place] [address] Shakira Hand, HUA [address] [place] [address] 08/21/2025 10:30 AM EDT Appointment [facility] [address] [place] [address] Antione Segura PA-C [address] [place] [address] documented as of this encounter Visit Diagnoses Not on filedocumented in this encounter Additional Health Concerns Assessment Noted Time PHQ-9 Depression Total Score: 9 05/11/20 25 6:24 PM EST PHQ-2 Depression Total Score: 2 05/11/20 6:24 PM EST documented as of this encounter Care Teams Mental Health Associate Relationship Specialty Start Date End Date Antione Segura PA-C [address] [place] [address] PCP - General Physician Delinquency Prevention Officer 10/12/24 Jn Cardoza MD 22 [facility], 2nd [place] [address] [email or web address] Neurology 02/03/24 Denys Henriquez MD [address] [place] [address] [place], [place] [phone] Pulmonary Disease 02/03/24 Rhett Cortez MD [address] [place] [address] [email or web address] Insurance Assigned Provider 01/20/25 documented as of this encounter Additional Source Comments The information contained in this document represents components of the legal health record. It is not the complete legal health record.[facility]
--- OUTSIDE RECORDS SUMMARY | 2025-06-01 11:16 | XMS_ITS | Encounter Summary ---
Author Organization [facility] Address [address] [place] [address] Phone Care Team Providers Care Flanging Machine Operator Name Role Phone Lang Germain MD Unavailable [phone] Jennifer Duke CREDIT RATING INSPECTOR Primary Care Provider Sirisha Huertas FINISHED CLOTH EXAMINER Primary Care Provider Jn Cardoza MD Unavailable Denys Henriquez MD Unavailable Liyah Patterson MD Unavailable Liyah Patterson MD Primary Care Provider [phone] Antione Segura PA-C Primary Care Provider [phone] Rhett Cortez MD Unavailable Encounter Details Date Type Department Care Team (Late st Contact Info) Description 02/25/2023 Procedure [facility], [address] [address] Social History Tobacco Use Types Packs/Day Years Used Date Smoking Tobacco: Every Day Cigarettes 0.8 43.5 Started: 11/25/1981 Passive Smoke Exposure: Never [...] high school, GED, job training, learning the Romanian language, technical skills, or developing parenting skills)? [...] Description 06/04/2025 12:30 AM EST Appointment [facility] [address] [place] [phone] Shakira Hand, HUA [address] [place] [address] 06/05/2025 1:00 AM EST Appointment [facility] [address] [place] [phone] Raisa Bautista [address] [place] [address] 06/06/2025 12:30 AM EST Appointment [facility] [address] [place] [phone] Raisa Bautista [address] [place] [address] 06/12/2025 1:30 AM EST Appointment [facility] [address] [place] [phone] Shakira Hand RN [address] [place] [address] 06/12/2025 2:00 AM EST Appointment [facility] [address] [place] [phone] Raisa Bautista [address] [place] [address] 06/13/2025 2:00 PM EST Hospital Encounter [facility] [address] [place] [address] Antione Segura PA-C [address] [place] [address] 06/14/2025 1:00 AM EST Appointment [facility] [address] [place] [address] Raisa Bautista [address] [place] [address] 06/19/2025 1:00 AM EST Appointment [facility] [address] [place] [address] Raisa Bautista [address] [place] [address] 06/19/2025 2:00 AM EST Appointment [facility] [address] [place] [address] Shakira Hand RN [address] [place] [address] 06/21/2025 1:00 AM EST Appointment [facility] [address] [place] [address] Raisa Bautista [address] [place] [address] 06/25/2025 9:30 AM EST Telemedicine [facility] Neurology Clinic [address] [place] [address] Jn Cardoza MD 22 [facility], 2nd [place] [address] 06/26/2025 1:00 AM EST Appointment [facility] [address] [place] [phone] Raisa Bautista [address] [place] [address] 06/27/2025 Appointment [facility] [address] [place] [phone] Shakira Hand RN [address] [place] [address] 06/28/2025 1:00 AM EST Appointment [facility] [address] [place] [address] Raisa Bautista [address] [place] [address] 07/03/2025 1:00 AM EST Appointment [facility] [address] [place] [address] LilyRaisa mckeon [address] [place] [address] 07/03/2025 1:00 PM EST Office Visit [facility] Pulmonology, Allergy and Critical Care Medicine Clinic [address] [place] [address] Celso Akins MD [address] [place] [address] 07/04/2025 Appointment [facility] [address] [place] [address] Shakira Hand RN [address] [place] [address] 07/04/2025 11:20 AM EST Office Visit [facility] Primary Care Clinic [address] [place] [address] Antione Segura PA-C [address] [place] [address] 07/05/2025 1:00 AM EST Appointment [facility] [address] [place] [address] Raisa Bauitsta [address] [place] [address] 07/10/2025 1:00 AM EST Appointment [facility] [address] [place] [address] Raisa Bautista [address] [place] [address] 07/11/2025 Appointment [facility] [address] [place] [address] Shakira Hand, HUA [address] [place] [address] 08/21/2025 10:30 AM EDT Appointment [facility] [address] [place] [address] Antione Segura PA-C [address] [place] [address] documented as of this encounter Visit Diagnoses Not on filedocumented in this encounter Additional Health Concerns Assessment Noted Time PHQ-9 Depression Total Score: 21 023 12:35 PM EDT PHQ-2 Depression Total Score: 2 02/19/20 23 6:55 PM EDT documented as of this encounter Care Teams Flanging Machine Operator Relationship Specialty Start Date End Date Jennifer Duke, CREDIT RATING INSPECTOR [address] [place] [address] PCP - General Family Medicine 01/31/20 06/22/23 Sirisha Huertas FNP [address] [address] [email or web address] PCP - General Nurse Practitioner 06/23/23 08/03/24 Liyah Patterson MD [address] [place] [address] PCP - General Family Medicine 08/04/24 10/11/24 Antione Segura PA-C [address] [place] [address] [email or web address] PCP - General Physician Eating Disorder Specialist 10/12/24 Lang Germain MD [address] [place] [address] [email or web address] Insurance Assigned Provider 09/18/23 02/19/24 Jn Cardoza MD [address] [place] [address], 2nd [place] [address] [email or web address] Neurology 02/03/24 Denys Henriquez MD [address] [place] [address] [place] [address] Pulmonary Disease 02/03/24 Liyah Patterson MD [address] [place] [address] [email or web address] Insurance Assigned Provider 02/19/24 01/20/25 Rhett Cortez MD [address] [place] [address] [email or web address] Insurance Assigned Provider 01/20/25 documented as of this encounter Additional Source Comments The information contained in this document represents components of the legal health record. It is not the complete legal health record.[facility]
--- OUTSIDE RECORDS SUMMARY | 2025-06-01 11:17 | XMS_ITS | Encounter Summary ---
Author Organization [facility] Address [address] [place] [address] [address] Phone Care Team Providers Care Levi Maker Name Role Phone Jn Cardoza MD Unavailable Denys Henriquez MD Unavailable Antione Segura PA-C Primary Care Provider [phone] Rhett Cortez MD Unavailable Reason for Visit * Reason Onset Date Comments TCM Visit 04/10/2025 Needs appt Encounter Details Date Type Department Care Team (Late st Contact Info) Description 04/10/2025 Telephone [facility] [address] [place], [place] [phone] Antione Segura PA-C [address] [place] [address] [email or web address] TCM Visit (Needs appt [...] high school, GED, job training, learning the [place] language, technical skills, or developing parenting skills)? [...] make today's appt has been readmitted to [facility] for exacerbation of COPD * Georgina Krause [...] Care Management New Patient: YES/NO: no Hospitalization Name:[facility] Discharge Date:04/09/2025 Reason for Visit+ Diagnosis: [...] Info) Description 06/04/2025 12:30 AM EST Appointment [facility] [address] [place] [address] Shakira Hand, HUA [address] [place] [address] 06/05/2025 1:00 AM EST Appointment [facility] [address] [place] [address] Raisa Bautista [address] [place] [address] 06/06/2025 12:30 AM EST Appointment [facility] [address] [place] [address] Lily Raisa Lawler [address] [place] [address] 06/12/2025 1:30 AM EST Appointment [facility] [address] [place] [phone] Shakira Hand RN [address] [place] [address] 06/12/2025 2:00 AM EST Appointment [facility] [address] [place] [phone] Lily Raisa M [address] [place] [address] 06/13/2025 2:00 PM EST Hospital Encounter [facility] [address] [place] [address] Antione Segura PA-C [address] [place] [address] 06/14/2025 1:00 AM EST Appointment [facility] [address] [place] [address] Lily Raisa M [address] [place] [address] 06/19/2025 1:00 AM EST Appointment [facility] [address] [place] [phone] Raisa Bautista [address] [place] [address] 06/19/2025 2:00 AM EST Appointment [facility] [address] [place] [phone] Shakira Hand, HUA [address] [place] [address] 06/21/2025 1:00 AM EST Appointment [facility] [address] [place] [phone] LilyRaisa M [address] [place] [address] 06/25/2025 9:30 AM EST Telemedicine [facility] [address] [place] [address] Jn Cardoza MD [address] [place] [address], [address] [place] [address] 06/26/2025 1:00 AM EST Appointment [facility] [address] [place] [phone] Lily Raisa M [address] [place] [address] 06/27/2025 Appointment [facility] [address] [place] [phone] Shakira Hand, HUA [address] [place] [address] 06/28/2025 1:00 AM EST Appointment [facility] [address] [place] [address] LilyRaisa M [address] [place] [address] 07/03/2025 1:00 AM EST Appointment [facility] [address] [place] [phone] Lily Raisa M [address] [place] [address] 07/03/2025 1:00 PM EST Office Visit [facility]ology[facility] All[facility] [address] [place] [address] [place] [address] Celso Akins MD [address] [place] [address] 2[address] [place] [address] 07/04/2025 Appointment [facility] [address] [place], [place] [phone] Shakira Hand RN [address] [place] [address] 07/04/2025 11:20 AM EST Office Visit [facility] [address] [place] [address] Antione Segura PA-C [address] [place] [address] 07/05/2025 1:00 AM EST Appointment [facility] [address] [place], [place] [phone] Raisa Bautista [address] [place] [address] 07/10/2025 1:00 AM EST Appointment [facility] [address] [place], [place] [phone] Raisa Bautista [address] [place] [address] 07/11/2025 Appointment [facility] [address] [place], [place] [phone] Shakira Hand RN [address] [place] [address] 08/21/2025 10:30 AM EDT Appointment [facility] [address] [place] [address] Antione Segura PA-C [address] [place] [address] @[email or web address] documented as of this encounter Visit Diagnoses Not on filedocumented in this encounter Additional Health Concerns Assessment Noted Time PHQ-9 Depression Total Score: 23 025 3:04 PM EDT PHQ-2 Depression Total Score: 5 03/21/20 25 3:04 PM EDT documented as of this encounter Care Teams Levi Maker Relationship Specialty Start Date End Date Antione Segura PA-C [address] [place] [address] PCP - General Physician Credentialing Coordinator 10/12/24 Jn Cardoza MD [address] [place] [address] Neurology 02/03/24 Denys Henriquez MD [address] [place] [address] [place] [address] Pulmonary Disease 02/03/24 Rhett Cortez MD [address] [place] [address] [phone] [email or web address] Insurance Assigned Provider 01/20/25 documented as of this encounter Additional Source Comments The information contained in this document represents components of the legal health record. It is not the complete legal health record.[facility]
--- OUTSIDE RECORDS SUMMARY | 2025-06-01 11:17 | XMS_ITS | Encounter Summary ---
Author Organization [facility] Address [address] [place] [address] Phone Care Team Providers Care Aircraft Cylinder Mechanic Name Role Phone Jn Cardoza MD Unavailable Denys Henriquez MD Unavailable Antione Segura PA-C Primary Care Provider [phone] Rhett Cortez MD Unavailable Encounter Details Date Type Department Care Team (Late st Contact Info) Description 04/26/2025 Lab Requisition [facility] Lab Main [address] [place] [address] Rosario Rodriguez, SENIOR BUSINESS INTELLIGENCE ANALYST [address] [phone] [email or web address] Illness, unspecified Social History Tobacco Use Types [...] high school, GED, job training, learning the Kosovan language, technical skills, or developing parenting skills)? [...] Description 06/04/2025 12:30 AM EST Appointment [facility] [address] [place] [phone] Shakira Hand, HUA [address] [place] [address] [email or web address] 06/05/2025 1:00 AM EST Appointment [facility] [address] [place] [phone] Raisa Bautista [address] [place] [address] [email or web address] 06/06/2025 12:30 AM EST Appointment [facility] [address] [place] [phone] Raisa Bautista [address] [place] [address] [email or web address] 06/12/2025 1:30 AM EST Appointment [facility] [address] [place] [phone] Shakira Hand RN [address] [place] [address] [email or web address] 06/12/2025 2:00 AM EST Appointment [facility] [address] [place] [phone] Raisa Bautista [address] [place] [address] [email or web address] 06/13/2025 2:00 PM EST Hospital Encounter [facility] [address] [place] [address] Antione Segura PA-C [address] [place] [address] [email or web address] 06/14/2025 1:00 AM EST Appointment [facility] [address] [place] [address] Raisa Bautista [address] [place] [address] 06/19/2025 1:00 AM EST Appointment [facility] [address] [place] [address] Raisa Bautista [address] [place] [address] 06/19/2025 2:00 AM EST Appointment [facility] [address] [place] [address] Shakira Hand, HUA [address] [place] [address] 06/21/2025 1:00 AM EST Appointment [facility] [address] [place] [address] Raisa Bautista [address] [place] [address] 06/25/2025 9:30 AM EST Telemedicine [facility] [address] [place] [address] Jn Cardoza MD [facility], 2nd [place] [address] 06/26/2025 1:00 AM EST Appointment [facility] [address] [place] [address] Raisa Bautista [address] [place] [address] [place] [address] 06/27/2025 Appointment [facility] [address] [place] [address] Shakiar Hand RN [address] [place] [address] 06/28/2025 1:00 AM EST Appointment [facility] [address] [place] [address] Raisa Bautista [address] [place] [address] 07/03/2025 1:00 AM EST Appointment [facility] [address] [place] [address] LilyRaisa mckeon [address] [place] [address] 07/03/2025 1:00 PM EST Office Visit [facility] [address] [place] [address] Celso Akins MD [address] [place] [address] 07/04/2025 Appointment [facility] [address] [place] [address] Shakira Hand RN [address] [place] [address] 07/04/2025 11:20 AM EST Office Visit [facility] [address] [place] [address] Antione Segura PA-C [address] [place] [address] [email or web address] 07/05/2025 1:00 AM EST Appointment [facility] [address] [place] [address] Raisa Bautista [address] [place] [address] 07/10/2025 1:00 AM EST Appointment [facility] [address] [place] [address] Raisa Bautista [address] [place] [address] 07/11/2025 Appointment [facility] [address] [place] [phone] Shakira Hand RN [address] [place] [address] 08/21/2025 10:30 AM EDT Appointment [facility] [address] [place] [address] Antione Segura PA-C [address] [place] [address] documented as of this encounter Procedures Procedure Name Priority Date/Time Associated Diagnosis Comments COMPREHENSIVE METABOLIC PANEL (CMP) Today 04/26/2025 6:18 AM EST Illness, unspecified CBC Today 04/26/2025 6:18 AM EST Illness, unspecified documented in this encounter Results * (ABNORMAL) CBC (04/26/2025 6:18 AM EST) WBC 11.77(H) 4.00 - 11.00 K/uL 04/26/2025 2:42 PM EST [facility] RBC 3.61(L) 4.00 - 5.20 M/uL 04/26/2025 2:42 PM EST [facility] Hemoglobin 11.0(L) 12.0 - 16.0 g/dL 04/26/2025 2:42 PM [facility] Hematocrit 36.8 36.0 - 46.0 % 04/26/2025 2:42 PM [facility] MCV 101.9(H) 80.0 - 100.0 fL 04/26/2025 2:42 PM [facility] MCH 30.5 27.0 - 31.0 pg 04/26/2025 2:42 PM [facility] MCHC 29.9(L) 32.0 - 36.0 g/dL 04/26/2025 2:42 PM [facility] PLT 431 150 - 450 K/uL 04/26/2025 2:42 PM [facility] MPV 9.6 8.4 - 12.0 fL 04/26/2025 2:42 PM [facility] RDW-CV 15.5(H) 11.5 - 14.5 % 04/26/2025 2:42 PM [facility] Absolute NRBC 0.00 <=0.00 K cells/uL 04/26/2025 2:42 PM [facility] NRBC 0.0 <=0.0 /100 WBCs 04/26/2025 2:42 PM [facility] Blood (Blood) 04/26/2025 6:1 8 AM EST 04/26/2025 9:55 AM EST us Rosario Rodriguez SENIOR BUSINESS INTELLIGENCE ANALYST LAB BLOOD BKR ORDERABLES Final R esult [address] [address] * (ABNORMAL) Comprehensive Metabolic Panel (CMP) (04/26/2025 6:18 AM EST) Sodium 139 136 - 145 mmol/L 04/26/2025 4:11 PM [facility] Potassium 4.2 3.4 - 5.1 mmol/L 04/26/2025 4:11 PM [facility] Chloride 95(L) 98 - 107 mmol/L 04/26/2025 4:11 PM [facility] CO2 35(H) 20 - 31 mmol/L 04/26/2025 4:11 PM [facility] Anion Gap 9 3 - 17 mmol/L 04/26/2025 4:11 PM [facility] BUN 19 6 - 23 mg/dL 04/26/2025 4:11 PM [facility] Creatinine 0.80 0.50 - 1.00 mg/dL 04/26/2025 4:11 PM [facility] eGFR 83 >59 mL/min/1.7 3m2 04/26/2025 4:11 PM [facility] Comment:Estimated glomerular filtration rate calculated using the CKD-EPI refit equation. Glucose 130(H) 70 - 99 mg/dL 04/26/2025 4:11 PM [facility] Calcium 9.7 8.5 - 10.5 mg/dL 04/26/2025 4:11 PM [facility] AST 18 <33 U/L 04/26/2025 4:11 PM [facility] ALT 13 <34 U/L 04/26/2025 4:11 PM [facility] Alkaline Phosphatase 65 40 - 130 U/L 04/26/2025 4:11 PM [facility] Bilirubin, Total <0.2 0.0 - 1.2 mg/dL 04/26/2025 4:11 PM [facility] Total Protein 6.0(L) 6.4 - 8.3 g/dL 04/26/2025 4:11 PM [facility] Albumin 3.7 3.5 - 5.2 g/dL 04/26/2025 4:11 PM [facility] Globulin 2.3 1.9 - 4.1 g/dL 04/26/2025 4:11 PM [facility] Blood (Blood) 04/26/2025 6:1 8 AM EST 04/26/2025 9:55 AM EST us Rosario Rodriguez NP LAB BLOOD BKR ORDERABLES Final R esult [facility] [address] [place] [address] documented in this encounter Visit Diagnoses Diagnosis Illness, unspecified documented in this encounter Additional Health Concerns Assessment Noted Time PHQ-9 Depression Total Score: 23 025 3:04 PM EDT PHQ-2 Depression Total Score: 5 03/21/20 25 3:04 PM EDT documented as of this encounter Care Teams Aircraft Cylinder Mechanic Relationship Specialty Start Date End Date Antione Segura PA-C [address] [place] [address] [email or web address] PCP - General Physician Can Washer 10/12/24 Jn Cardoza MD [facility], 2nd [place] [address] Neurology 02/03/24 Denys Henriquez MD [address] [place] [address] [place] [address] Pulmonary Disease 02/03/24 Rhett Cortez MD [address] [place] [address] [email or web address] Insurance Assigned Provider 01/20/25 documented as of this encounter Additional Source Comments The information contained in this document represents components of the legal health record. It is not the complete legal health record.[facility]
--- OUTSIDE RECORDS SUMMARY | 2025-06-01 11:17 | XMS_ITS | Encounter Summary ---
Author Organization [facility] Address [address] [place] [address] Phone Care Team Providers Care Cheese Tester Name Role Phone Charbel Webber MD Unavailable Alverto Gandara MD Unavailable Maikel Rawls MD Unavailable [phone] Lang Germain MD Unavailable Jennifer Duke WILDLIFE MANAGEMENT PROFESSOR Primary Care Provider Lang Germain MD Primary Care Provider Jennifer Duke WILDLIFE MANAGEMENT PROFESSOR Unavailable [phone] Jennifer Duke WILDLIFE MANAGEMENT PROFESSOR Primary Care Provider Lang Germain MD Primary Care Provider Jennifer Duke WILDLIFE MANAGEMENT PROFESSOR Primary Care Provider Sirisha Huertas SENIOR NET WEB DEVELOPER Primary Care Provider [phone] Jn Cardoza MD Unavailable Denys Henriquez MD Unavailable Liyah Patterson MD Unavailable Liyah Patterson MD Primary Care Provider Antione Segura PA-C Primary Care Provider Rhett Cortez MD Unavailable Encounter Details Date Type Department Care Team (Late st Contact Info) Description 03/20/2019 Telephone [facility] [address] [place] [address] Jennifer Duke, WILDLIFE MANAGEMENT PROFESSOR [address] [facility] [address] [place] [address] Social History Tobacco Use Types Packs/Day Years [...] Description 06/04/2025 12:30 AM EST Appointment [facility] [address] [place], [place] [phone] Shakira Hand, HUA [address] [place] [address] 06/05/2025 1:00 AM EST Appointment [facility] [address] [place], [place] [phone] Raisa Bautista [address] [place] [address] [email or web address] 06/06/2025 12:30 AM EST Appointment [facility] [address] [place], [place] [phone] Raisa Bautista [address] [place] [address] [email or web address] 06/12/2025 1:30 AM EST Appointment [facility] [address] [place] [address] Shakira Hand, RN [address] [place] [address] [email or web address] 06/12/2025 2:00 AM EST Appointment [facility] [address] [place], [place] [phone] LilyRaisa mckeon [address] [place] [address] [email or web address] 06/13/2025 2:00 PM EST Hospital Encounter [facility] [address] [place] [address] Antione Segura PA-C [address] [place] [address] [email or web address] 06/14/2025 1:00 AM EST Appointment [facility] [address] [place], [place] [phone] Raisa Bautista [address] [place] [address] [email or web address] 06/19/2025 1:00 AM EST Appointment [facility] [address] [place], [place] [phone] Raisa Bautista [address] [place] [address] [email or web address] 06/19/2025 2:00 AM EST Appointment [facility] [address] [place] [address] Shakira Hand, HUA [address] [place] [address] [email or web address] 06/21/2025 1:00 AM EST Appointment [facility] [address] [place] [address] Lily Raisa M [address] [place] [address] 06/25/2025 9:30 AM EST Telemedicine [facility] Neurology Clinic [address] [place] [address] Jn Cardoza MD [address] [place] [address], 2nd [place] [address] 06/26/2025 1:00 AM EST Appointment [facility] [address] [place] [phone] Lily Raisa M [address] [place] [address] [email or web address] 06/27/2025 Appointment [facility] [address] [place] [phone] Shakira Hand, HUA [address] [place] [address] 06/28/2025 1:00 AM EST Appointment [facility] [address] [place] [phone] Raisa Bautista [address] [place] [address] 07/03/2025 1:00 AM EST Appointment [facility] [address] [place] [phone] Raisa Bautista [address] [place] [address] 07/03/2025 1:00 PM EST Office Visit [facility] Pulmonology, Allergy and Critical Care Medicine Clinic [address] [place] [address] [phone] Celso Akins MD [address] [place] [address] 07/04/2025 Appointment [facility] [address] [place], [place] [phone] Shakira Hand RN [address] [place] [address] 07/04/2025 11:20 AM EST Office Visit [facility] [address] [place] [address] Antione Segura PA-C [address] [place] [address] 07/05/2025 1:00 AM EST Appointment [facility] [address] [place], [place] [phone] Raisa Bautista [address] [place] [address] 07/10/2025 1:00 AM EST Appointment [facility] [address] [place] [address] Raisa Bautista [address] [place] [address] 07/11/2025 Appointment [facility] [address] [place], [place] [phone] Shakira Hand RN [address] [place] [address] 08/21/2025 10:30 AM EDT Appointment [facility] [address] [place] [address] Antione Segura PA-C [address] [place] [address] documented as of this encounter Visit Diagnoses Not on filedocumented in this encounter Additional Health Concerns Assessment Noted Time PHQ-2 Depression Total Score: 0 11/18/19 19 2:05 PM EDT documented as of this encounter Care Teams Cheese Tester Relationship Specialty Start Date End Date Jennifer Duke, WILDLIFE MANAGEMENT PROFESSOR [address] [place] [address] [email or web address] PCP - General Family Medicine 12/14/18 11/12/19 Lang Germain MD [address] [place] [address] [email or web address] PCP - General Internal Medicine 11/13/19 12/03/19 Jennifer Duke WILDLIFE MANAGEMENT PROFESSOR [address] [place] [address] [email or web address] PCP - General Family Medicine 12/04/19 01/23/20 Lang Germain MD [address] [place] [address] [email or web address] PCP - General Internal Medicine 01/24/20 01/30/20 Jennifer Duke, WILDLIFE MANAGEMENT PROFESSOR [address] [place] [address] [email or web address] PCP - General Family Medicine 01/31/20 06/22/23 Sirisha Huertas FNP [address] [address] [email or web address] PCP - General Nurse Practitioner 06/23/23 08/03/24 Liyah Patterson MD 15 [facility] [address] [place] [address] [email or web address] PCP - General Family Medicine 08/04/24 10/11/24 Antione Segura PA-C [address] [place] [address] PCP - General Physician Canvas Cutter Hand 10/12/24 Charbel Webber MD 22 [facility], [address] [place] [address] [email or web address] Historical LMR Provider 04/01/17 0 Alverto Gandara MD 22 [facility], 2nd [place] [address] Historical LMR Provider 04/01/17 12/03/19 Maikel Rawls MD [address] [place] [address] [email or web address] Historical LMR Provider 04/01/17 12/03/19 Lang Germain MD [address] [place] [address] Insurance Assigned Provider 09/18/23 02/19/24 Jennifer Duke NP [address] [place] [address] Nurse Practitioner Family Medicine 11/13/19 01/30/20 Jn Cardoza MD 22 [facility], 2nd [place] [address] [email or web address] Neurology 02/03/24 Denys Henriquez MD [address] [place] [address] [place] [address] Pulmonary Disease 02/03/24 Liyah Patterson MD 15 [facility] [address] [place] [address] [email or web address] Insurance Assigned Provider 02/19/24 01/20/25 Rhett Cortez MD [address] [place] [address] Insurance Assigned Provider 01/20/25 documented as of this encounter Additional Source Comments The information contained in this document represents components of the legal health record. It is not the complete legal health record.[facility]
--- OUTSIDE RECORDS SUMMARY | 2025-06-01 11:17 | XMS_ITS | Encounter Summary ---
Author Organization [facility] Address [address] [address] Phone Care Team Providers Care Desulphuring Operator Name Role Phone Jn Cardoza MD Unavailable Denys Henriquez MD Unavailable Antione Segura PA-C Primary Care Provider Rhett Cortez MD Unavailable Encounter Details Date Type Department Care Team (Late st Contact Info) Description 03/20/2025 Home Health Resumption of Care Planning [facility] [address] [place] [phone] Koki Simons RN [address] [place] [address] [email or web address] Social History Tobacco Use Types Packs/Day Years [...] high school, GED, job training, learning the Stateless language, technical skills, or developing parenting skills)? [...] EST Appointment [facility] [address] [place] [phone] Shakira Hand RN [address] [place] [address] [email or web address] 06/05/2025 1:00 AM EST Appointment [facility] [address] [place] [phone] Raisa Bautista [address] [place] [address] [email or web address] 06/06/2025 12:30 AM EST Appointment [facility] [address] [place] [phone] Raisa Bautista [address] [place] [address] [email or web address] 06/12/2025 1:30 AM EST Appointment [facility] [address] [place] [phone] Shakira Hand RN [address] [place] [address] [email or web address] 06/12/2025 2:00 AM EST Appointment [facility] [address] [place] [phone] Raisa Bautista [address] [place] [address] [email or web address] 06/13/2025 2:00 PM EST Hospital Encounter [facility] [address] [place] [address] Antione Segura PA-C [address] [place] [address] 06/14/2025 1:00 AM EST Appointment [facility] [address] [place] [phone] Raisa Bautista [address] [place] [address] 06/19/2025 1:00 AM EST Appointment [facility] [address] [place] [address] Raisa Bautista [address] [place] [address] 06/19/2025 2:00 AM EST Appointment [facility] [address] [place] [phone] Shakira Hand RN [address] [place] [address] 06/21/2025 1:00 AM EST Appointment [facility] [address] [place] [phone] Raisa Bautista [address] [place] [address] 06/25/2025 9:30 AM EST Telemedicine [facility] Neurology Clinic [address] [place] [address] Jn Cardoza MD [address] [address] 06/26/2025 1:00 AM EST Appointment [facility] [address] [place] [phone] Raisa Bautista [address] [place] [address] 06/27/2025 Appointment [facility] [address] [place] [address] Shakira Hand RN [address] [place] [address] 06/28/2025 1:00 AM EST Appointment [facility] [address] [place] [phone] Raisa Bautista [address] [place] [address] 07/03/2025 1:00 AM EST Appointment [facility] [address] [place] [address] Raisa Bautista [address] [place] [address] 07/03/2025 1:00 PM EST Office Visit [facility] Pulmonology, Allergy and Critical Care Medicine Clinic [address] [place] [address] Celso Akins MD [address] [place] [address] 07/04/2025 Appointment [facility] [address] [place] [address] Shakira Hand RN [address] [place] [address] 07/04/2025 11:20 AM EST Office Visit [facility] Primary Care Clinic [address] [place] [address] Antione Segura PA-C [address] [place] [address] [email or web address] 07/05/2025 1:00 AM EST Appointment [facility] [address] [place] [address] Raisa Bautista [address] [place] [address] 07/10/2025 1:00 AM EST Appointment [facility] [address] [place] [address] Raisa Bautista [address] [place] [address] 07/11/2025 Appointment [facility] [address] [place] [phone] Shakira Hand RN [address] [place] [address] 08/21/2025 10:30 AM EDT Appointment [facility] [address] [place] [address] Antione Segura PA-C [address] [place] [address] documented as of this encounter Visit Diagnoses Not on filedocumented in this encounter Additional Health Concerns Assessment Noted Time PHQ-9 Depression Total Score: 15 025 9:44 AM EDT PHQ-2 Depression Total Score: 4 02/01/20 25 9:44 AM EDT documented as of this encounter Care Teams Desulphuring Operator Relationship Specialty Start Date End Date Antione Segura PA-C [address] [place] [address] [email or web address] PCP - General Physician [employer] Sales Manager 10/12/24 Jn Cardoza MD [address] [place] [address], [address] [place] [address] [email or web address] Neurology 02/03/24 Denys Henriquez MD [address] [place] [address] [place] [address] Pulmonary Disease 02/03/24 Rhett Cortez MD [address] [place] [address] [email or web address] Insurance Assigned Provider 01/20/25 documented as of this encounter Additional Source Comments The information contained in this document represents components of the legal health record. It is not the complete legal health record.[facility]
--- OUTSIDE RECORDS SUMMARY | 2025-06-01 11:17 | XMS_ITS | Encounter Summary ---
Author Organization [facility] Address [address] [place] [address] [address] [place] [address] Phone Care Team Providers Care It Trainer Name Role Phone Jn Cardoza MD Unavailable Denys Henriquez MD Unavailable Antione Segura PA-C Primary Care Provider [phone] Rhett Cortez MD Unavailable Encounter Details Date Type Department Care Team (Late st Contact Info) Description 05/07/2025 Telephone [facility] [address] [place], [place] [phone] Antione Segura PA-C [address] [place], [place] [phone] [email or web address] Social History Tobacco Use Types Packs/Day Years [...] high school, GED, job training, learning the Frisian language, technical skills, or developing parenting skills)? [...] Description 06/04/2025 12:30 AM EST Appointment [facility] [address] [place] [phone] Shakira Hand RN [address] [place] [address] 06/05/2025 1:00 AM EST Appointment [facility] [address] [place] [phone] Raisa Bautista [address] [place] [address] 06/06/2025 12:30 AM EST Appointment [facility] [address] [place] [phone] Raisa Bautista [address] [place] [address] 06/12/2025 1:30 AM EST Appointment [facility] [address] [place] [phone] Shakira Hand RN [address] [place] [address] 06/12/2025 2:00 AM EST Appointment [facility] [address] [place] [phone] Raisa Bautista [address] [place] [address] 06/13/2025 2:00 PM EST Hospital Encounter [facility] [address] [place] [address] Antione Segura PA-C [address] [place] [address] [email or web address] 06/14/2025 1:00 AM EST Appointment [facility] [address] [place] [phone] Raisa Bautista [address] [place] [address] 06/19/2025 1:00 AM EST Appointment [facility] [address] [place] [phone] Raisa Bautista [address] [place] [address] 06/19/2025 2:00 AM EST Appointment [facility] [address] [place] [phone] Shakira Hand RN [address] [place] [address] 06/21/2025 1:00 AM EST Appointment [facility] [address] [place] [phone] Raisa Bautista [address] [place] [address] 06/25/2025 9:30 AM EST Telemedicine [facility] Neurology [facility] [address] [place] [address] Jn Cardoza MD 22 [facility], [address] [place] [address] 06/26/2025 1:00 AM EST Appointment [facility] [address] [place] [phone] Raisa Bautista [address] [place] [address] 06/27/2025 Appointment [facility] [address] [place] [phone] Shakira Hand RN [address] [place] [address] 06/28/2025 1:00 AM EST Appointment [facility] [address] [place] [phone] Raisa Bautista [address] [place] [address] 07/03/2025 1:00 AM EST Appointment [facility] [address] [place] [address] Raisa Bautista [address] [place] [address] 07/03/2025 1:00 PM EST Office Visit [facility] Pulmonology, Allergy and Critical Care Medicine Clinic [address] [place] [address] Celso Akins MD [address] [place] [address] 07/04/2025 Appointment [facility] [address] [place] [address] Shakira Hand RN [address] [place] [address] 07/04/2025 11:20 AM EST Office Visit [facility] [address] [place] [address] Antione Segura PA-C [address] [place] [address] 07/05/2025 1:00 AM EST Appointment [facility] [address] [place] [address] Raisa Bautista [address] [place] [address] 07/10/2025 1:00 AM EST Appointment [facility] [address] [place] [address] Raisa Bautista [address] [place] [address] 07/11/2025 Appointment [facility] [address] [place] [phone] Shakira Hand RN [address] [place] [address] 08/21/2025 10:30 AM EDT Appointment [facility] [address] [place] [address] Antione Segura PA-C [address] [place] [address] [email or web address] documented as of this encounter Visit Diagnoses Not on filedocumented in this encounter Additional Health Concerns Assessment Noted Time PHQ-9 Depression Total Score: 23 025 3:04 PM EDT PHQ-2 Depression Total Score: 5 03/21/20 25 3:04 PM EDT documented as of this encounter Care Teams It Trainer Relationship Specialty Start Date End Date Antione Segura PA-C [address] [place] [address] PCP - General Physician Powder Line Repairer 10/12/24 Jn Cardoza MD 22 [facility], [address] [place] [address] [email or web address] Neurology 02/03/24 Denys Henriquez MD [address] [place] [address] [place] [address] Pulmonary Disease 02/03/24 Rhett Cortez MD [address] [place] [address] [email or web address] Insurance Assigned Provider 01/20/25 documented as of this encounter Additional Source Comments The information contained in this document represents components of the legal health record. It is not the complete legal health record.[facility]
--- OUTSIDE RECORDS SUMMARY | 2025-06-01 11:17 | XMS_ITS | Encounter Summary ---
Author Organization [facility] Address [address] [place] [address] Phone Care Team Providers Care Rug Cutter Helper Name Role Phone Jn Cardoza MD Unavailable Denys Henriquez MD Unavailable Antione Segura PA-C Primary Care Provider Rhett Cortez MD Unavailable Encounter Details Date Type Department Care Team (Late st Contact Info) Description 05/03/2025 Lab Requisition [facility] [address] [place] [address] Nba Roberson MD 38 [facility], [address], [address] [place] [address] [email or web address] Peripheral vascular disease, unspecified Social History Tobacco [...] Description 06/04/2025 12:30 AM EST Appointment [facility] [address] [place] [phone] Shakira Hand RN [address] [place] [address] 06/05/2025 1:00 AM EST Appointment [facility] [address] [place] [phone] Raisa Bautista [address] [place] [address] 06/06/2025 12:30 AM EST Appointment [facility] [address] [place] [phone] Raisa Bautista [address] [place] [address] 06/12/2025 1:30 AM EST Appointment [facility] [address] [place] [phone] Shakira Hand RN [address] [place] [address] 06/12/2025 2:00 AM EST Appointment [facility] [address] [place] [phone] Raisa Bautista [address] [place] [address] 06/13/2025 2:00 PM EST Hospital Encounter [facility] 30 [place] [address] Antione Segura PA-C [address] [place] [address] 06/14/2025 1:00 AM EST Appointment [facility] [address] [place] [address] Lily Raisa M [address] [place] [address] 06/19/2025 1:00 AM EST Appointment [facility] [address] [place] [phone] Lily Raisa M [address] [place] [address] 06/19/2025 2:00 AM EST Appointment [facility] [address] [place] [phone] Shakira Hand, HUA [address] [place] [address] 06/21/2025 1:00 AM EST Appointment [facility] [address] [place] [phone] Raisa Bautista [address] [place] [address] 06/25/2025 9:30 AM EST Telemedicine [facility] Neurology Clinic [address] [place] [address] Jn Cardoza MD 22 [facility], [address] [place] [address] 06/26/2025 1:00 AM EST Appointment [facility] [address] [place] [address] Raisa Bautista [address] [place] [address] 06/27/2025 Appointment [facility] [address] [place] [address] Shakira Hand RN [address] [place] [address] 06/28/2025 1:00 AM EST Appointment [facility] [address] [place], [place] [phone] Raisa Bautista [address] [place] [address] 07/03/2025 1:00 AM EST Appointment [facility] [address] [place] [address] LilyRaisa mckeon [address] [place] [address] 07/03/2025 1:00 PM EST Office Visit [facility] Pulmonology, Allergy and Critical Care Medicine Clinic [address] [place] [address] Celso Akins MD [address] [place] [address] 07/04/2025 Appointment [facility] [address] [place] [address] Shakira Hand RN [address] [place] [address] 07/04/2025 11:20 AM EST Office Visit [facility] Primary Care Clinic [address] [place] [address] Antione Segura PA-C [address] [place] [address] 07/05/2025 1:00 AM EST Appointment [facility] [address] [place] [address] Raisa Bautista [address] [place] [address] 07/10/2025 1:00 AM EST Appointment [facility] [address] [place] [address] Raisa Bautista [address] [place] [address] 07/11/2025 Appointment [facility] [address] [place] [phone] Shakira Hand, HUA [address] [place] [address] 08/21/2025 10:30 AM EDT Appointment [facility] [address] [place] [address] Antione Segura PA-C [address] [place] [address] documented as of this encounter Procedures Procedure Name Priority Date/Time Associated Diagnosis Comments COMPREHENSIVE METABOLIC PANEL (CMP) Today 05/03/2025 4:40 AM EST Peripheral vascular disease, unspecified CBC Today 05/03/2025 4:40 AM EST Peripheral vascular disease, unspecified documented in this encounter Results * (ABNORMAL) Comprehensive Metabolic Panel (CMP) (05/03/2025 4:40 AM EST) [facility] Sodium 140 136 - 145 mmol/L 05/03/2025 7:15 AM EST [facility] Potassium 3.7 3.4 - 5.1 mmol/L 05/03/2025 7:15 AM [facility] Chloride 98 98 - 107 mmol/L 05/03/2025 7:15 AM [facility] CO2 33(H) 20 - 31 mmol/L 05/03/2025 7:15 AM [facility] Anion Gap 9 3 - 17 mmol/L 05/03/2025 7:15 AM [facility] BUN 10 6 - 23 mg/dL 05/03/2025 7:15 AM [facility] Creatinine 0.50 0.50 - 1.00 mg/dL 05/03/2025 7:15 AM [facility] eGFR 106 >59 mL/min/1.7 3m2 05/03/2025 7:15 AM [facility] Comment:Estimated glomerular filtration rate calculated using the CKD-EPI refit equation. Glucose 124(H) 70 - 99 mg/dL 05/03/2025 7:15 AM [facility] Calcium 9.3 8.5 - 10.5 mg/dL 05/03/2025 7:15 AM [facility] AST 17 <33 U/L 05/03/2025 7:15 AM [facility] ALT 14 <34 U/L 05/03/2025 7:15 AM [facility] Alkaline Phosphatase 60 40 - 130 U/L 05/03/2025 7:15 AM [facility] Bilirubin, Total <0.2 0.0 - 1.2 mg/dL 05/03/2025 7:15 AM [facility] Total Protein 6.2(L) 6.4 - 8.3 g/dL 05/03/2025 7:15 AM [facility] Albumin 3.6 3.5 - 5.2 g/dL 05/03/2025 7:15 AM [facility] Globulin 2.6 1.9 - 4.1 g/dL 05/03/2025 7:15 AM [facility] Blood (Blood) 05/03/2025 4:4 0 AM EST 05/03/2025 6:06 AM EST us Nba Roberson MD LAB BLOOD BKR ORDERABLES Final R esult [address] [address] * (ABNORMAL) CBC (05/03/2025 4:40 AM EST) WBC 8.32 4.00 - 11.00 K/uL 05/03/2025 6:44 AM [facility] RBC 3.33(L) 4.00 - 5.20 M/uL 05/03/2025 6:44 AM [facility] Hemoglobin 10.1(L) 12.0 - 16.0 g/dL 05/03/2025 6:44 AM [facility] Hematocrit 32.5(L) 36.0 - 46.0 % 05/03/2025 6:44 AM [facility] MCV 97.6 80.0 - 100.0 fL 05/03/2025 6:44 AM [facility] MCH 30.3 27.0 - 31.0 pg 05/03/2025 6:44 AM [facility] MCHC 31.1(L) 32.0 - 36.0 g/dL 05/03/2025 6:44 AM [facility] PLT 356 150 - 450 K/uL 05/03/2025 6:44 AM [facility] MPV 9.5 8.4 - 12.0 fL 05/03/2025 6:44 AM [facility] RDW-CV 15.5(H) 11.5 - 14.5 % 05/03/2025 6:44 AM [facility] Absolute NRBC 0.02(H) <=0.00 K cells/uL 05/03/2025 6:44 AM [facility] NRBC 0.2(H) <=0.0 /100 WBCs 05/03/2025 6:44 AM [facility] Blood (Blood) 05/03/2025 4:4 0 AM EST 05/03/2025 6:06 AM EST us Nba Roberson MD LAB BLOOD BKR ORDERABLES Final R esult [address] [address] documented in this encounter Visit Diagnoses Diagnosis Peripheral vascular disease, unspecified documented in this encounter Additional Health Concerns Assessment Noted Time PHQ-9 Depression Total Score: 23 025 3:04 PM EDT PHQ-2 Depression Total Score: 5 03/21/20 25 3:04 PM EDT documented as of this encounter Care Teams Rug Cutter Helper Relationship Specialty Start Date End Date Antione Segura PA-C [address] [place] [address] PCP - General Physician Sales & Service Associate 10/12/24 Jn Cardoza MD [address] [place] [address], [address] [place] [address] Neurology 02/03/24 Denys Henriquez MD [address] [place] [address] [place] [address] Pulmonary Disease 02/03/24 Rhett Cortez MD [address] [place] [address] [email or web address] Insurance Assigned Provider 01/20/25 documented as of this encounter Additional Source Comments The information contained in this document represents components of the legal health record. It is not the complete legal health record.[facility]
--- OUTSIDE RECORDS SUMMARY | 2025-06-01 11:17 | XMS_ITS | Encounter Summary ---
Author Organization [facility] Address [address] [place] [address] Phone Care Team Providers Care It Data Architect Name Role Phone Jn Cardoza MD Unavailable Denys Henriquez MD Unavailable [phone] Antione Segura PA-C Primary Care Provider [phone] Rhett Cortez MD Unavailable Encounter Details Date Type Department Care Team (Late st Contact Info) Description 03/28/2025 Procedure Pass [facility], Ct Scan - [address] [address] Social History Tobacco Use Types Packs/Day Years [...] high school, GED, job training, learning the Khmer language, technical skills, or developing parenting skills)? [...] Appointment [facility] [address] [place] [phone] Shakira Hand RN [address] [place] [address] [email or web address] 06/05/2025 1:00 AM EST Appointment [facility] [address] [place] [phone] Raisa Bautista [address] [place] [address] [email or web address] 06/06/2025 12:30 AM EST Appointment [facility] [address] [place] [phone] Raisa Bautista [address] [place] [address] [email or web address] 06/12/2025 1:30 AM EST Appointment [facility] [address] [place] [phone] Shakira Hand RN [address] [place] [address] [email or web address] 06/12/2025 2:00 AM EST Appointment [facility] [address] [place] [phone] Raisa Bautista [address] [place] [address] [email or web address] 06/13/2025 2:00 PM EST Hospital Encounter [facility] [address] [place] [address] Antione Segura PA-C [address] [place] [address] 06/14/2025 1:00 AM EST Appointment [facility] [address] [place] [address] LilyRaisa [address] [place] [address] 06/19/2025 1:00 AM EST Appointment [facility] [address] [place] [address] LilyRaisa M [address] [place] [address] [email or web address] 06/19/2025 2:00 AM EST Appointment [facility] [address] [place] [address] Shakira Hand RN [address] [place] [address] 06/21/2025 1:00 AM EST Appointment [facility] [address] [place] [phone] Lily Raisa Lawler [address] [place] [address] 06/25/2025 9:30 AM EST Telemedicine [facility] Neurology Clinic [address] [place] [address] Jn Cardoza MD 22 [facility], 2nd [place] [address] 06/26/2025 1:00 AM EST Appointment [facility] [address] [place] [phone] Lily Raisa M [address] [place] [address] 06/27/2025 Appointment [facility] [address] [place] [address] Shakira Hand RN [address] [place] [address] 06/28/2025 1:00 AM EST Appointment [facility] [address] [place], [place] [phone] Raisa Bautista [address] [place] [address] 07/03/2025 1:00 AM EST Appointment [facility] [address] [place], [place] [phone] Lily Raisa M [address] [place] [address] 07/03/2025 1:00 PM EST Office Visit [facility] Pulmonology, Allergy and Critical Care Medicine Clinic [address] [place] [address] Celso Akins MD [address] [place] [address] 07/04/2025 Appointment [facility] [address] [place] [address] Shakira Hand RN [address] [place] [address] 07/04/2025 11:20 AM EST Office Visit [facility] Primary Care Clinic [address] [place] [address] Antione Segura PA-C [address] [place] [address] 07/05/2025 1:00 AM EST Appointment [facility] [address] [place], [place] [phone] Raisa Bautista [address] [place] [address] 07/10/2025 1:00 AM EST Appointment [facility] [address] [place] [phone] Raisa Bautista [address] [place] [address] 07/11/2025 Appointment [facility] [address] [place] [address] Shakira Hand RN [address] [place] [address] 08/21/2025 10:30 AM EDT Appointment [facility] [address] [place] [address] Antione Segura PA-C [address] [place] [address] documented as of this encounter Visit Diagnoses Not on filedocumented in this encounter Additional Health Concerns Assessment Noted Time PHQ-9 Depression Total Score: 23 025 3:04 PM EDT PHQ-2 Depression Total Score: 5 03/21/20 25 3:04 PM EDT documented as of this encounter Care Teams It Data Architect Relationship Specialty Start Date End Date Antione Segura PA-C [address] [place] [address] PCP - General Physician County Attorney 10/12/24 Jn Cardoza MD [address] [place] [address], [address] [place] [address] Neurology 02/03/24 Denys Henriquez MD [address] [place] [address] [place] [address] Pulmonary Disease 02/03/24 Rhett Cortez MD [address] [place] [address] [email or web address] Insurance Assigned Provider 01/20/25 documented as of this encounter Additional Source Comments The information contained in this document represents components of the legal health record. It is not the complete legal health record.[facility]
--- OUTSIDE RECORDS SUMMARY | 2025-06-01 11:17 | XMS_ITS | Encounter Summary ---
Author Organization [facility] Address [address] [place] [address] Phone Care Team Providers Care Ekg Monitor Tech Name Role Phone Charbel Webber MD Unavailable Alverto Gandara MD Unavailable [phone] Maikel Rawls MD Unavailable [phone] Lang Germain MD Primary Care Provider Jennifer Duke INTERNET MARKETER Primary Care Provider Lang Germain MD Primary Care Provider Jenniefr Duke INTERNET MARKETER Primary Care Provider Lang Germain MD Primary Care Provider Jennifer Duke INTERNET MARKETER Primary Care Provider Lang Germain MD Unavailable Lang Germain MD Primary Care Provider Jennifer Duke INTERNET MARKETER Primary Care Provider Lang Germain MD Primary Care Provider Jennifer Duke INTERNET MARKETER Primary Care Provider Lang Germain MD Primary Care Provider [phone] Jennifer Duke INTERNET MARKETER Primary Care Provider [phone] Lang Germain MD Primary Care Provider [phone] Jennifer Duke INTERNET MARKETER Unavailable [phone] Jennifer Duke INTERNET MARKETER Primary Care Provider [phone] Lang Germain MD Primary Care Provider [phone] Jennifer Duke INTERNET MARKETER Primary Care Provider [phone] Aleksandar Sirishafrancisca Kendall FRONT LINE LEADER Primary Care Provider [phone] Jn Cardoza MD Unavailable Denys Henriquez MD Unavailable [phone] Liyah Patterson MD Unavailable Liyah Patterson MD Primary Care Provider [phone] Antione Segura PA-C Primary Care Provider [phone] Rhett Cortez MD Unavailable Reason for Referral * MRI/CAT Scan - Closed Specialty Diagnoses / Procedures Referred By Contac t Referred To Contact Procedures CT Head Outside (No Interpretation) System, Provider Not In, PhD [address] [address] Referral ID Status Reason Start Date Expiration Date Visits Re quested Visits Authorized [id number] Closed 06/20/2018 06/20/2019 1 1 * MRI/CAT Scan - Closed Specialty Diagnoses / Procedures Referred By Contac t Referred To Contact Procedures CT Face Outside (No Interpretation) System, Provider Not In, PhD [address] [address] Referral ID Status Reason Start Date Expiration Date Visits Re quested Visits Authorized [id number] Closed 06/20/2018 06/20/2019 1 1 Encounter Details Date Type Department Care Team (Late st Contact Info) Description 06/20/2018 Ancillary Orders [facility] Imaging [address] [place] [address] System, Provider Not In, [place] [address] Social History Tobacco Use Types Packs/Day Years [...] Description 06/04/2025 12:30 AM EST Appointment [facility] [address] [place] [phone] Shakira Hand RN [address] [place] [address] 06/05/2025 1:00 AM EST Appointment [facility] [address] [place] [phone] Raisa Bautista [address] [place] [address] 06/06/2025 12:30 AM EST Appointment [facility] [address] [place] [phone] Raisa Bautista [address] [place] [address] 06/12/2025 1:30 AM EST Appointment [facility] [address] [place] [phone] Shakira Hand RN [address] [place] [address] 06/12/2025 2:00 AM EST Appointment [facility] [address] [place] [address] Raisa Bautista [address] [place] [address] 06/13/2025 2:00 PM EST Hospital Encounter [facility] [address] [place] [address] Antione Segura PA-C [address] [place] [address] 06/14/2025 1:00 AM EST Appointment [facility] [address] [place] [phone] LilyRaisa mckeon [address] [place] [address] 06/19/2025 1:00 AM EST Appointment [facility] [address] [place] [phone] Raisa Bautista [address] [place] [address] 06/19/2025 2:00 AM EST Appointment [facility] [address] [place] [phone] Shakira Hand, HUA [address] [place] [address] 06/21/2025 1:00 AM EST Appointment [facility] [address] [place] [phone] Lily Raisa Nuris [address] [place] [address] 06/25/2025 9:30 AM EST Telemedicine [facility] [address] [place] [address] Jn Cardoza MD [address] [address] 06/26/2025 1:00 AM EST Appointment [facility] [address] [place] [address] Raisa Bautista [address] [place] [address] 06/27/2025 Appointment [facility] [address] [place] [address] Shakira Hand RN [address] [place] [address] 06/28/2025 1:00 AM EST Appointment [facility] [address] [place] [phone] Raisa Bautista [address] [place] [address] 07/03/2025 1:00 AM EST Appointment [facility] [address] [place] [phone] Raisa Bautista [address] [place] [address] 07/03/2025 1:00 PM EST Office Visit [facility] Pulmonology, Allergy and Critical Care Medicine Clinic [address] [place] [address] Celso Akins MD [address] [place] [address] 07/04/2025 Appointment [facility] [address] [place] [phone] Shakira Hand RN [address] [place] [address] 07/04/2025 11:20 AM EST Office Visit [facility] [address] [place] [address] Antione Segura PA-C [address] [place] [address] 07/05/2025 1:00 AM EST Appointment [facility] [address] [place] [address] LilyRaisa [address] [place] [address] 07/10/2025 1:00 AM EST Appointment [facility] [address] [place] [address] LilyRaisa [address] [place] [address] 07/11/2025 Appointment [facility] [address] [place] [address] Shakira Hand, HUA [address] [place] [address] 08/21/2025 10:30 AM EDT Appointment [facility] [address] [place] [address] Antione Segura PA-C [address] [place] [address] documented as of this encounter Results * [...] documented as of this encounter Care Teams Ekg Monitor Tech Relationship Specialty Start Date End Date aLng Germain MD [address] [place] [address] PCP - General Internal Medicine 06/13/18 06/30/18 Jennifer Duke INTERNET MARKETER [address] [place] [address] PCP - General Family Medicine 07/01/18 08/02/18 Lang Germain MD [address] [place] [address] PCP - General Internal Medicine 08/03/18 09/07/18 Jennifer Duke NP [address] [place] [address] PCP - General Family Medicine 09/08/18 09/14/18 Lang Germain MD [address] [place] [address] PCP - General Internal Medicine 09/15/18 10/02/18 Jennifer Duke, INTERNET MARKETER [address] [place] [address] [email or web address] PCP - General Family Medicine 10/03/18 10/05/18 Lang Germain MD [address] [place] [address] [email or web address] PCP - General Internal Medicine 10/06/18 10/12/18 Jennifer Duke NP [address] [place] [address] [email or web address] PCP - General Family Medicine 10/13/18 11/09/18 Lang Germain MD [address] [place] [address] [email or web address] PCP - General Internal Medicine 11/10/18 11/22/18 Jennifer Duke NP [address] [place] [address] [email or web address] PCP - General Family Medicine 11/23/18 11/30/18 Lang Germain MD [address] [place] [address] [email or web address] PCP - General Internal Medicine 12/01/18 12/13/18 Jennifer Duke INTERNET MARKETER [address] [place] [address] [email or web address] PCP - General Family Medicine 12/14/18 11/12/19 Lang Germain MD [address] [place] [address] [email or web address] PCP - General Internal Medicine 11/13/19 12/03/19 Jennifer Duke NP [address] [place] [address] [email or web address] PCP - General Family Medicine 12/04/19 01/23/20 Lang Germain MD [address] [place] [address] [email or web address] PCP - General Internal Medicine 01/24/20 01/30/20 Jennifer Duke INTERNET MARKETER [address] [place] [address] [email or web address] PCP - General Family Medicine 01/31/20 06/22/23 Sirisha Huertas FNP [address] [place] [address] [email or web address] PCP - General Nurse Practitioner 06/23/23 08/03/24 Liyah Patterson MD [address] [address] [email or web address] PCP - General Family Medicine 08/04/24 10/11/24 Antione Segura PA-C [address] [place] [address] PCP - General Physician Garbage Collector Supervisor 10/12/24 Charbel Webber MD [address] [place] [address], [address] [place] [address] [email or web address] Historical LMR Provider 04/01/17 0 Alverto Gandara MD [address] [place] [address], [address] [place] [address] [email or web address] Historical LMR Provider 04/01/17 12/03/19 Maikel Rawls MD [address] [place] [address] [email or web address] Historical LMR Provider 04/01/17 12/03/19 Lang Germain MD [address] [place] [address] [email or web address] Insurance Assigned Provider 09/18/23 02/19/24 Jennifer Duke, [place] [address] [place] [address] [email or web address] Nurse Practitioner Family Medicine 11/13/19 01/30/20 Jn Cardoza MD [address] [place] [address], [address] [place] [address] Neurology 02/03/24 Denys Henriquez MD [address] [place] [address] [place] [address] Pulmonary Disease 02/03/24 Liyah Patterson MD [address] [place] [address] [email or web address] Insurance Assigned Provider 02/19/24 01/20/25 Rhett Cortez MD [address] [place] [address] [email or web address] Insurance Assigned Provider 01/20/25 documented as of this encounter Additional Source Comments The information contained in this document represents components of the legal health record. It is not the complete legal health record.[facility]
--- OUTSIDE RECORDS SUMMARY | 2025-06-01 11:17 | XMS_ITS | Encounter Summary ---
Author Organization [facility] Address [address] [place] [address] Phone Care Team Providers Care Drywall Finisher Foreman Name Role Phone Lang Germain MD Unavailable Jennifer Duke SNUFF MAKER Primary Care Provider Sirisha Huertas REPAIRER RECREATIONAL VEHICLE Primary Care Provider Jn Cardoza MD Unavailable Denys Henriquez MD Unavailable Liyah Patterson MD Unavailable Liyah Patterson MD Primary Care Provider [phone] Antione Segura PA-C Primary Care Provider Rhett Cortez MD Unavailable Encounter Details Date Type Department Care Team (Late st Contact Info) Description 09/01/2021 Procedure Pass [facility], [address] [address] Social History Tobacco Use Types Packs/Day Years [...] Description 06/04/2025 12:30 AM EST Appointment [facility] [address] [place] [phone] Shakira Hand, HUA [address] [place] [address] 06/05/2025 1:00 AM EST Appointment [facility] [address] [place] [phone] Raisa Bautista [address] [place] [address] 06/06/2025 12:30 AM EST Appointment [facility] [address] [place] [phone] Raisa Bautista [address] [place] [address] 06/12/2025 1:30 AM EST Appointment [facility] [address] [place] [phone] Shakira Hand, HUA [address] [place] [address] 06/12/2025 2:00 AM EST Appointment [facility] [address] [place] [phone] Raisa Bautista [address] [place] [address] 06/13/2025 2:00 PM EST Hospital Encounter [facility] [address] [place] [address] Antione Segura PA-C [address] [place] [address] 06/14/2025 1:00 AM EST Appointment [facility] [address] [place] [address] Raisa Bautista [address] [place] [address] 06/19/2025 1:00 AM EST Appointment [facility] [address] [place] [address] Raisa Bautista [address] [place] [address] 06/19/2025 2:00 AM EST Appointment [facility] [address] [place] [phone] Shakira Hand, HUA [address] [place] [address] 06/21/2025 1:00 AM EST Appointment [facility] [address] [place] [phone] Raisa Bautista [address] [place] [address] 06/25/2025 9:30 AM EST Telemedicine [facility] Neurology [facility] [address] [place] [address] Jn Cardoza MD [address] [facility], 2nd [place] [address] 06/26/2025 1:00 AM EST Appointment [facility] [address] [place] [phone] Raisa Bautista [address] [place] [address] 06/27/2025 Appointment [facility] [address] [place] [phone] Shakira Hand RN [address] [place] [address] 06/28/2025 1:00 AM EST Appointment [facility] [address] [place] [phone] Raisa Bautista [address] [place] [address] 07/03/2025 1:00 AM EST Appointment [facility] [address] [place] [address] Raisa Bautista [address] [place] [address] 07/03/2025 1:00 PM EST Office Visit [facility] Pulmonology, Allergy and Critical [facility] Medicine Clinic [address] [place] [address] Celso Akins MD [address] [place] [address] 07/04/2025 Appointment [facility] [address] [place], [place] [phone] Shakira Hand RN [address] [place] [address] 07/04/2025 11:20 AM EST Office Visit [facility] [address] [place] [address] Antione Segura PA-C [address] [place] [address] 07/05/2025 1:00 AM EST Appointment [facility] [address] [place] [address] Raisa Bautista [address] [place] [address] 07/10/2025 1:00 AM EST Appointment [facility] [address] [place] [address] Raisa Bautista [address] [place] [address] 07/11/2025 Appointment [facility] [address] [place] [address] Shakira Hand RN [address] [place] [address] 08/21/2025 10:30 AM EDT Appointment [facility] [address] [place] [address] Antione Segura PA-C [address] [place] [address] documented as of this encounter Visit Diagnoses Not on filedocumented in this encounter Additional Health Concerns Assessment Noted Time PHQ-2 Depression Total Score: 0 05/25/20 19 9:02 AM EST documented as of this encounter Care Teams Drywall Finisher Foreman Relationship Specialty Start Date End Date Jennifer Duke, SNUFF MAKER [address] [place] [address] PCP - General Family Medicine 01/31/20 06/22/23 Sirisha Huertas FNP [address] [address] [email or web address] PCP - General Nurse Practitioner 06/23/23 08/03/24 Liyah Patterson MD [address] [place] [address] [email or web address] PCP - General Family Medicine 08/04/24 10/11/24 Antione Segura PA-C [address] [place] [address] [email or web address] PCP - General Physician Soft Work Cigar Machine Operator 10/12/24 Lang Germain MD [address] [place] [address] [email or web address] Insurance Assigned Provider 09/18/23 02/19/24 Jn Cardoza MD [address] [place] [address], 2nd [place] [address] [email or web address] Neurology 02/03/24 Denys Henriquez MD [address] [place] [address] [place] [address] Pulmonary Disease 02/03/24 Liyah Patterson MD [address] [place] [address] [email or web address] Insurance Assigned Provider 02/19/24 01/20/25 Rhett Cortez MD [address] [place] [address] [email or web address] Insurance Assigned Provider 01/20/25 documented as of this encounter Additional Source Comments The information contained in this document represents components of the legal health record. It is not the complete legal health record.[facility]
--- OUTSIDE RECORDS SUMMARY | 2025-06-01 11:17 | XMS_ITS | Encounter Summary ---
Author Organization [facility] Address [address] [place] [address] Phone Care Team Providers Care Auto [employer] Travel Counselor Name Role Phone Lang Germain MD Unavailable [phone] Jennifer Duke CABLE TOOL DRILLER Primary Care Provider Sirisha Huertas SALES RELATIONSHIP MANAGER Primary Care Provider [phone] Jn Cardoza MD Unavailable Denys Henriquez MD Unavailable Liyah Patterson MD Unavailable Lyiah Patterson MD Primary Care Provider [phone] Antione Segura PA-C Primary Care Provider Rhett Cortez MD Unavailable Encounter Details Date Type Department Care Team (Late st Contact Info) Description 05/06/2021 Procedure Pass [facility], [address] [address] Social History Tobacco Use Types Packs/Day Years [...] Description 06/04/2025 12:30 AM EST Appointment [facility] [address] [place] [phone] Shakira Hand, HUA [address] [place] [address] 06/05/2025 1:00 AM EST Appointment [facility] [address] [place] [phone] Raisa Bautista [address] [place] [address] 06/06/2025 12:30 AM EST Appointment [facility] [address] [place] [phone] Raisa Bautista [address] [place] [address] 06/12/2025 1:30 AM EST Appointment [facility] [address] [place] [phone] Shakira Hand, HUA [address] [place] [address] 06/12/2025 2:00 AM EST Appointment [facility] [address] [place] [phone] Raisa Bautista [address] [place] [address] 06/13/2025 2:00 PM EST Hospital Encounter [facility] [address] [place] [address] Antione Segura PA-C [address] [place] [address] 06/14/2025 1:00 AM EST Appointment [facility] [address] [place] [address] Raisa Bautista [address] [place] [address] 06/19/2025 1:00 AM EST Appointment [facility] [address] [place] [phone] Raisa Bautista [address] [place] [address] 06/19/2025 2:00 AM EST Appointment [facility] [address] [place] [phone] Shakira Hand, HUA [address] [place] [address] 06/21/2025 1:00 AM EST Appointment [facility] [address] [place] [phone] Raisa Bautista [address] [place] [address] 06/25/2025 9:30 AM EST Telemedicine [facility] Neurology [facility] [address] [place] [address] Jn Cardoza MD 22 [facility], 2nd [place] [address] 06/26/2025 1:00 AM EST Appointment [facility] [address] [place] [phone] Raisa Bautista [address] [place] [address] 06/27/2025 Appointment [facility] [address] [place] [phone] Shakira Hand RN [address] [place] [address] 06/28/2025 1:00 AM EST Appointment [facility] [address] [place] [phone] Raisa Bautista [address] [place] [address] 07/03/2025 1:00 AM EST Appointment [facility] [address] [place] [address] Raisa Bautista [address] [place] [address] 07/03/2025 1:00 PM EST Office Visit [facility] Pulmonology, Allergy and Critical Care Medicine Clinic [address] [place] [address] Celso Akins MD [address] [place] [address] 07/04/2025 Appointment [facility] [address] [place], [place] [phone] Shakira Hand RN [address] [place] [address] 07/04/2025 11:20 AM EST Office Visit [facility] [address] [place] [address] Antione Segura PA-C [address] [place] [address] 07/05/2025 1:00 AM EST Appointment [facility] [address] [place] [address] Raisa Bautista [address] [place] [address] 07/10/2025 1:00 AM EST Appointment [facility] [address] [place] [address] Raisa Bautista [address] [place] [address] 07/11/2025 Appointment [facility] [address] [place] [address] Shakira Hand RN [address] [place] [address] 08/21/2025 10:30 AM EDT Appointment [facility] [address] [place] [address] Antione Segura PA-C [address] [place] [address] documented as of this encounter Visit Diagnoses Not on filedocumented in this encounter Additional Health Concerns Assessment Noted Time PHQ-2 Depression Total Score: 0 05/25/20 19 9:02 AM EST documented as of this encounter Care Teams Auto Club Travel Counselor Relationship Specialty Start Date End Date Jennifer Duke, CABLE TOOL DRILLER [address] [place] [address] PCP - General Family Medicine 01/31/20 06/22/23 Sirisha Huertas FNP [address] [address] [email or web address] PCP - General Nurse Practitioner 06/23/23 08/03/24 Liyah Patterson MD [address] [place] [address] [email or web address] PCP - General Family Medicine 08/04/24 10/11/24 Antione Segura PA-C [address] [place] [address] [email or web address] PCP - General Physician Technical Producer 10/12/24 Lang Germain MD [address] [place] [address] [email or web address] Insurance Assigned Provider 09/18/23 02/19/24 Jn Cardoza MD [address] [place] [address], 2nd [place] [address] [email or web address] Neurology 02/03/24 Denys Henriquez MD [address] [place] [address] [place] [address] Pulmonary Disease 02/03/24 Liyah Patterson MD [address] [place] [address] [email or web address] Insurance Assigned Provider 02/19/24 01/20/25 Rhett Cortez MD [address] [place] [address] [email or web address] Insurance Assigned Provider 01/20/25 documented as of this encounter Additional Source Comments The information contained in this document represents components of the legal health record. It is not the complete legal health record.[facility]
--- OUTSIDE RECORDS SUMMARY | 2025-06-01 11:17 | XMS_ITS | Encounter Summary ---
Author Organization [facility] Address [address] [place] [address] [address] [place] [address] Phone Care Team Providers Care Telephone Collector Name Role Phone Jn Cardoza MD Unavailable Denys Henriquez MD Unavailable Antione Segura PA-C Primary Care Provider Rhett Cortez MD Unavailable Encounter Details Date Type Department Care Team (Late st Contact Info) Description 05/07/2025 Telephone [facility] Primary Care Clinic [address] [place], [place] [phone] Antione Segura PA-C [address] [place], [place] [phone] [email or web address] Social History Tobacco [...] high school, GED, job training, learning the Macedonian language, technical skills, or developing parenting skills)? [...] Description 06/04/2025 12:30 AM EST Appointment [facility] [address] [place] [phone] Shakira Hand RN [address] [place] [address] 06/05/2025 1:00 AM EST Appointment [facility] [address] [place] [phone] Raisa Bautista [address] [place] [address] 06/06/2025 12:30 AM EST Appointment [facility] [address] [place] [phone] Raisa Bautista [address] [place] [address] 06/12/2025 1:30 AM EST Appointment [facility] [address] [place] [phone] Shakira Hand RN [address] [place] [address] 06/12/2025 2:00 AM EST Appointment [facility] [address] [place] [phone] Raisa Bautista [address] [place] [address] 06/13/2025 2:00 PM EST Hospital Encounter [facility] [address] [place] [address] Antione Segura PA-C [address] [place] [address] 06/14/2025 1:00 AM EST Appointment [facility] [address] [place] [phone] Raisa Bautista [address] [place] [address] 06/19/2025 1:00 AM EST Appointment [facility] [address] [place] [phone] Raisa Bautista [address] [place] [address] 06/19/2025 2:00 AM EST Appointment [facility] [address] [place] [phone] Shakira Hand RN [address] [place] [address] 06/21/2025 1:00 AM EST Appointment [facility] [address] [place] [phone] Raisa Bautista [address] [place] [address] 06/25/2025 9:30 AM EST Telemedicine [facility] Neurology Clinic [address] [place] [address] Jn Cardoza MD [facility], [address] [place] [address] 06/26/2025 1:00 AM EST Appointment [facility] [address] [place] [phone] Raisa Bautista [address] [place] [address] 06/27/2025 Appointment [facility] [address] [place] [phone] Shakira Hand RN [address] [place] [address] 06/28/2025 1:00 AM EST Appointment [facility] [address] [place] [phone] Raisa Bautista [address] [place] [address] 07/03/2025 1:00 AM EST Appointment [facility] [address] [place] [address] Raisa Bautista [address] [place] [address] 07/03/2025 1:00 PM EST Office Visit [facility] Pulmonology, Allergy and Critical Care Medicine Clinic [address] [place] [address] Celso Akins MD [address] [place] [address] 07/04/2025 Appointment [facility] [address] [place] [address] Shakira Hand RN [address] [place] [address] 07/04/2025 11:20 AM EST Office Visit [facility] [address] [place] [address] Antione Segura PA-C [address] [place] [address] 07/05/2025 1:00 AM EST Appointment [facility] [address] [place] [phone] Raisa Bautista [address] [place] [address] 07/10/2025 1:00 AM EST Appointment [facility] [address] [place] [address] Raisa Bautista [address] [place] [address] 07/11/2025 Appointment [facility] [address] [place] [phone] Shakira Hand RN [address] [place] [address] 08/21/2025 10:30 AM EDT Appointment [facility] [address] [place] [address] Antione Segura PA-C [address] [place] [address] documented as of this encounter Visit Diagnoses Not on filedocumented in this encounter Additional Health Concerns Assessment Noted Time PHQ-9 Depression Total Score: 23 025 3:04 PM EDT PHQ-2 Depression Total Score: 5 03/21/20 25 3:04 PM EDT documented as of this encounter Care Teams Telephone Collector Relationship Specialty Start Date End Date Antione eSgura PA-C [address] [place] [address] PCP - General Physician Bomb Squad Commander 10/12/24 Jn Cardoza MD [facility], [address] [place] [address] [email or web address] Neurology 02/03/24 Denys Henriquez MD [address] [place] [address] [place] [address] Pulmonary Disease 02/03/24 Rhett Cortez MD [address] [place] [address] [email or web address] Insurance Assigned Provider 01/20/25 documented as of this encounter Additional Source Comments The information contained in this document represents components of the legal health record. It is not the complete legal health record.[facility]
--- OUTSIDE RECORDS SUMMARY | 2025-06-01 11:18 | XMS_ITS | Encounter Summary ---
Author Organization [facility] Address [address] [place] [address] Phone Care Team Providers Care Business Insurance Agent Name Role Phone Jn Cardoza MD Unavailable Denys Henriquez MD Unavailable Antione Segura PA-C Primary Care Provider [phone] Rhett Cortez MD Unavailable Encounter Details Date Type Department Care Team (Late st Contact Info) Description 05/30/2025 Orders Only [facility] Primary Care Clinic [address] [place] [address] Provider, MD Omar [address] [place] [address] Social History Tobacco Use Types Packs/Day [...] Appointment [facility] [address] [place] [phone] Shakira Hand RN [address] [place] [address] 06/05/2025 1:00 AM EST Appointment [facility] [address] [place] [phone] Raisa Bautista [address] [place] [address] 06/06/2025 12:30 AM EST Appointment [facility] [address] [place] [phone] Raisa Bautista [address] [place] [address] 06/12/2025 1:30 AM EST Appointment [facility] [address] [place] [phone] Shkaira Hand RN [address] [place] [address] 06/12/2025 2:00 AM EST Appointment [facility] [address] [place] [phone] Raisa Bautista [address] [place] [address] 06/13/2025 2:00 PM EST Hospital Encounter [facility] [address] [place] [address] Antione Segura PA-C [address] [place] [address] 06/14/2025 1:00 AM EST Appointment [facility] [address] [place] [phone] Lily, Raisa M [address] [place] [address] 06/19/2025 1:00 AM EST Appointment [facility] [address] [place] [address] Lily Raisa M [address] [place] [address] 06/19/2025 2:00 AM EST Appointment [facility] [address] [place] [phone] Shakira Hand, HUA [address] [place] [address] 06/21/2025 1:00 AM EST Appointment [facility] [address] [place] [phone] Raisa Bautista [address] [place] [address] 06/25/2025 9:30 AM EST Telemedicine [facility] Neurology Clinic [address] [place] [address] Jn Cardoza MD 22 [facility], 2nd [place] [address] 06/26/2025 1:00 AM EST Appointment [facility] [address] [place] [phone] Raisa Bautista M [address] [place] [address] 06/27/2025 Appointment [facility] [address] [place] [address] Shakira Hand RN [address] [place] [address] 06/28/2025 1:00 AM EST Appointment [facility] [address] [place] [phone] Raisa Bautista [address] [place] [address] 07/03/2025 1:00 AM EST Appointment [facility] [address] [place], [place] [phone] Raisa Bautista [address] [place] [address] 07/03/2025 1:00 PM EST Office Visit [facility] Pulmonology, Allergy and Critical Care Medicine Clinic [address] [place] [address] Celso Akins MD [address] [place] [address] 07/04/2025 Appointment [facility] [address] [place], [place] [phone] Shakira Hand RN [address] [place] [address] 07/04/2025 11:20 AM EST Office Visit [facility] Primary Care Clinic [address] [place] [address] Antione Segura PA-C 40 [place] [address] [email or web address] 07/05/2025 1:00 AM EST Appointment [facility] [address] [place], [place] [phone] Raisa Bautista [address] [place] [address] 07/10/2025 1:00 AM EST Appointment [facility] [address] [place], [place] [phone] Raisa Bautista [address] [place] [address] 07/11/2025 Appointment [facility] [address] [place], [place] [phone] Shakira Hand RN [address] [place] [address] 08/21/2025 10:30 AM EDT Appointment [facility] [address] [place] [address] Antione Segura PA-C [address] [place] [email or web address] documented as of this encounter Procedures Procedure Name Priority Date/Time Associated Diagnosis Comments OUTSIDE XR CHEST REPORT ONLY Routine 05/29/2025 8:45 AM EST documented in this encounter Results * Outside XR??Chest Report Only (05/29/2025 8:45 AM EST) us Historical Provider MD DAWKINS XR CHEST Final Res ult documented in this encounter Visit Diagnoses Not on filedocumented in this encounter Additional Health Concerns Assessment Noted Time PHQ-9 Depression Total Score: 9 05/11/20 25 6:24 PM EST PHQ-2 Depression Total Score: 2 05/11/20 6:24 PM EST documented as of this encounter Care Teams Business Insurance Agent Relationship Specialty Start Date End Date Antione Segura PA-C [address] [place] [address] [email or web address] PCP - General Physician Wax Specialist 10/12/24 Jn Cardoza MD [address] [place] [address], 2nd [place] [address] [email or web address] Neurology 02/03/24 Denys Henriquez MD [address] [place] [address] [place] [address] Pulmonary Disease 02/03/24 Rhett Cortez MD [address] [place] [address] [email or web address] Insurance Assigned Provider 01/20/25 documented as of this encounter Additional Source Comments The information contained in this document represents components of the legal health record. It is not the complete legal health record.[facility]
--- OUTSIDE RECORDS SUMMARY | 2025-06-01 11:18 | XMS_ITS | Encounter Summary ---
Author Organization [facility] Address [address] [place] [address] Phone Care Team Providers Care Research Librarian Name Role Phone Jn Cardoza MD Unavailable Denys Henriquez MD Unavailable Antione Segura PA-C Primary Care Provider Rhett Cortez MD Unavailable Reason for Visit * Reason Onset Date Comments Medication Refill 05/30/2025 Encounter Details Date Type Department Care Team (Late st Contact Info) Description 05/30/2025 Refill [facility] Primary Care Clinic [address] [place], [place] [phone] Antione Segura PA-C [address] [place] [address] [email or web address] Medication Refill Social [...] as of this encounter Progress Notes * Krista Arroyo MA - 05/30/2025 1:57 PM EST Images from the original note were not included. Pt called rx line requesting refill of oxycodone to [facility] Care Gap Status - Instructions for Clinical Staff (prescriber discretion applies): > Mismatch review guide > Check PDMP for all controlled medication requests. Visit Info Last visit: 05/29/2025 Antione Segura PA-C - Internal Medicine [facility] > Requested f/u: Return in about 5 weeks (around 07/03/2025) for Recheck. Upcoming visit: 07/04/2025 Antione Segura PA-C - Internal Medicine [facility] ACTIONS TAKEN BY Krista Arroyo MA - Checked PDMP/MassPAT. Opioid Rx Protocol - oxycodone HCl Controlled substance renewals are at prescriber discretion. Pain mgmt profile/toxicology (urine/saliva) may be considered annually or more frequently if indicated. In-person visit in past 2 years: Yes (Last in-person visit: 05/29/2025 (Antione Segura PA-C - [facility])) Visit in past 4 months: Yes No benzodiazepine on medication list Opioid agreement on file: Yes Pain management profile/toxicology in past 12 months: No documented in this encounter Plan of Treatment Upcoming Encounters Date Type Department Care Team ([facility] st Contact Info) Description 06/04/2025 12:30 AM EST Appointment [facility] [address] [place] [phone] Shakira Hand, RN [address] [place] [address] 06/05/2025 1:00 AM EST Appointment [facility] [address] [place] [phone] Lily Raisa M [address] [place] [address] 06/06/2025 12:30 AM EST Appointment [facility] [address] [place] [phone] Lily Raisa M [address] [place] [address] 06/12/2025 1:30 AM EST Appointment [facility] [address] [place] [phone] Shakira Hand, HUA [address] [place] [address] 06/12/2025 2:00 AM EST Appointment [facility] [address] [place] [phone] Raisa Bautista [address] [place] [address] 06/13/2025 2:00 PM EST Hospital Encounter [facility] [address] [place] [address] Antione Segura PA-C [address] [place] [address] 06/14/2025 1:00 AM EST Appointment [facility] [address] [place] [phone] Raisa Bautista [address] [place] [address] 06/19/2025 1:00 AM EST Appointment [facility] [address] [place] [address] LilyRaisa [address] [place] [address] 06/19/2025 2:00 AM EST Appointment [facility] [address] [place] [address] Shakira Hand RN [address] [place] [address] 06/21/2025 1:00 AM EST Appointment [facility] [address] [place], [place] [phone] [place] [phone] 06/25/2025 9:30 AM EST Telemedicine [facility] Neurology Clinic [address] [place] [address] Jn Cardoza MD [address] [place] [address], 2nd [place] [address] 06/26/2025 1:00 AM EST Appointment [facility] [address] [place] [address] [address]Rais[address] [place] [address] 06/27/2025 Appointment [facility] [address] [place], [place] [phone] Shakira Hand RN [address] [place] [address] 06/28/2025 1:00 AM EST Appointment [facility] [address] [place], [place] [phone] LilyRaisa [address] [place] [address] 07/03/2025 1:00 AM EST Appointment [facility] [address] [place], [place] [phone] Lily Raisa Lawler [address] [place] [address] 07/03/2025 1:00 PM EST Office Visit [facility] Pulmonology, Allergy and Critical Care Medicine Clinic [address] [place] [address] Celso Akins MD [address] [place] [address] 07/04/2025 Appointment [facility] [address] [place], [place] [phone] Shakira Hand RN [address] [place] [address] 07/04/2025 11:20 AM EST Office Visit [facility] Primary Care Clinic [address] [place] [address] Antione Segura PA-C 40 [place] [address] 07/05/2025 1:00 AM EST Appointment [facility] [address] [place], [place] [phone] Lily Raisa Lawler [address] [place] [address] 07/10/2025 1:00 AM EST Appointment [facility] [address] [place], [place] [phone] LilyRaisa wasserman [address] [place] [address] 07/11/2025 Appointment [facility] [address] [place] [phone] Shakira Hand RN [address] [place] [address] 08/21/2025 10:30 AM EDT Appointment [facility] [address] [place] [address] Antione Segura PA-C [address] [place] [address] documented as of this encounter Visit Diagnoses Diagnosis Acute right-sided low back pain without sciatica documented in this encounter Additional Health Concerns Assessment Noted Time PHQ-9 Depression Total Score: 9 05/11/20 6:24 PM EST PHQ-2 Depression Total Score: 2 05/11/20 6:24 PM EST documented as of this encounter Care Teams Research Librarian Relationship Specialty Start Date End Date Antione Segura PA-C [address] [place] [address] PCP - General Physician Fixed Income Director 10/12/24 Jn Cardoza MD [address] [place] [address], 2[address] [place] [address] Neurology 02/03/24 Denys Henriquez MD [address] [place] [address] [place] [address] Pulmonary Disease 02/03/24 Rhett Cortez MD [address] [place] [address] Insurance Assigned Provider 01/20/25 documented as of this encounter Additional Source Comments The information contained in this document represents components of the legal health record. It is not the complete legal health record.[facility]
--- NOTE | 2025-06-01 12:30 | PC.NURSE ---
states no culture needed at this time
--- NOTE | 2025-06-01 13:43 | PM.IMHP ---
History of Present Illness Date of Service: 06/01/25 Chief Complaint: Shortness of breath 60-year-old female with past medical history significant for hypertension, hyperlipidemia, tobacco use disorder, asthma/COPD on home oxygen, JUANITO/ohs on home CPAP with noncompliance, trigeminal neuralgia, who presented to hospital complaining of worsening shortness of breath, that began earlier today. Patient mentions earlier today while walking she began feeling short of breath and decided to call EMS. Patient states that she has experienced multiple ED/urgent care visits at least 36 this year for similar complaints. Patient was recently seen in the ED, given steroid course with minimal improvement. Review of Systems Review of Systems: 14 point ROS obtained, negative except as stated above [facility] Medical History Chronic lung disease Morbid obesity Pulmonary nodules Diastolic heart failure Chronic lung disease Hypoxia Panic disorder Hypertension Chronic hypercapnic respiratory failure Aortic stenosis Asthma Hypogammaglobulinemia Smoker JUANITO (obstructive sleep apnea) Elevated troponin COPD (chronic obstructive pulmonary disease) Trigeminal neuralgia Mixed hyperlipidemia Peripheral neuropathy Tobacco use disorder Mood disorder Surgical History History of esophagogastroduodenoscopy (EGD) History of colonoscopy History of lumbar discectomy History of tubal ligation History of excision of mass History of shoulder surgery Social History Household Members: Spouse Household Members Other:: dog [facility] Do you presently have visiting nurse or other home services: Yes ([facility]) Alcohol intake: current Alcohol intake frequency: holidays/special occasions only Alcohol type: hard liquor Comment: pt refusing alarms and assistance OOB Patient Tobacco Use Status: Former Tobacco user Tobacco use type: Cigarette Cigarette Packs Per Day: 4 Cigarettes Per Day: 80.0 Years Smoked: 40 e-Cigarette/Vaping Use: Never Used Second Hand Smoke Exposure: No Substance Use Type: Marijuana Advance Directives: Yes Advance Directives on File: Yes Advance Directives Date on File: 03/09/23 Do you have a plan to hurt others: No Plan service: No Meds Allergies Allergy/AdvReac Type Severity Reaction Status Date / Time Iodinated Contrast Media (IV Allergy Intermediate HIVES Verified 06/01/25 09:43 CONTRAST) latex (LATEX) Allergy Unknown RASH Verified 06/01/25 09:43 adhesive tape Allergy Rash Verified 06/01/25 09:43 morphine (MORPHINE) AdvReac Unknown VOMITING Verified 06/01/25 09:43 Active Medications: Current Medications Acetaminophen (Acetaminophen 325 Mg Tablet) 650 mg PO Q6H PRN PRN Reason: Pain, Mild 1-3,fever,headache Benzonatate (Benzonatate 100 Mg Capsule) 100 mg PO TID PRN PRN Reason: Cough Calcium Carbonate (Calcium Carbonate 750 Mg Tab.Chew) 750 mg PO Q4H PRN PRN Reason: Heartburn Enoxaparin Sodium (Enoxaparin Sodium 40 Mg/0.4 Ml Syringe) 40 mg SUBCUT Q24H [place] Hydromorphone HCl (Hydromorphone Hcl 1 Mg/Ml Syringe) 0.5 mg IVPUSH Q4H PRN; Protocol PRN Reason: Pain, Severe (Pain Scale 7-10) Magnesium Hydroxide (Milk Of Magnesia 30 Ml Oral.Susp) 30 ml PO DAILY PRN PRN Reason: Constipation Melatonin (Melatonin 3 Mg Tablet) 6 mg PO BEDTIME PRN PRN Reason: Insomnia Ondansetron HCl (Ondansetron Hcl 4 Mg/2 Ml Vial) 4 mg IVPUSH Q8H PRN PRN Reason: Nausea and Vomiting Oxycodone HCl (Oxycodone Hcl Immed Release 5 Mg Tablet) 5 mg PO Q4H PRN PRN Reason: Pain, Moderate(Pain Scale 4-6) Sodium Chloride (0.9 % Sodium Chloride Flush 3 Ml Syringe) [facility] Medications ?Medication ?Instructions ?Recorded ?Confirmed ?Last Taken ?Type atorvastatin 80 mg tablet 80 mg PO DAILY@199903/04/23 05/22/25 05/09/25 History vbjpotfcve-miajnyvjvrayt-ehzzraes 1 tab PO DAILY MRX1 PRN Migraine 03/04/23 05/22/25 04/07/25 History 50 mg-325 mg-40 mg tablet Headache duloxetine 60 mg capsule,delayed 60 mg PO BID@0600,199903/04/23 05/22/25 05/09/25 History release gabapentin 300 mg capsule 1,200 mg PO TID@0600,1200,199903/04/23 05/22/25 05/09/25 History hyoscyamine sulfate 0.125 mg tablet 0.25 mg PO Q6H PRN Abdominal 03/04/23 05/22/25 04/07/25 History Discomfort Oxygen Home Use 04/16/23 05/22/25 10/28/24 History prazosin 2 mg capsule 2 mg PO DAILY@199904/16/23 05/22/25 05/09/25 History albuterol sulfate 90 mcg/actuation 2 puff inhalation Q4H PRN 01/31/24 05/22/25 04/12/25 History aerosol inhaler Shortness Of Breath Or Wheezing aspirin 81 mg tablet,delayed 81 mg PO DAILY@199905/22/24 05/22/25 05/09/25 History release calcium 600 mg (as 1 tab PO DAILY@199906/20/24 05/22/25 05/09/25 History carbonate)-vitamin D3 5 mcg (200 unit) tablet baclofen 20 mg tablet 20 mg PO TID@0600,1200,199910/29/24 05/22/25 05/09/25 History aripiprazole 5 mg tablet (Abilify) 5 mg PO DAILY@0600 12/01/24 05/22/25 05/09/25 History oxcarbazepine 300 mg tablet 300 mg PO BID@0600,199912/21/24 05/22/25 05/09/25 History lorazepam 0.5 mg tablet 0.5 mg PO BEDTIME@1999 MODERATE 01/04/25 05/22/25 05/09/25 History Anxiety polyethylene glycol 3350 17 17 g PO DAILY PRN Constipation 01/04/25 05/22/25 04/07/25 History gram/dose oral powder (Miralax) budesonide 160 mcg-glycopyr 9 2 inh inhalation BID@0600,1800 02/05/25 05/22/25 05/09/25 History mcg-formot 4.8 mcg/actuation HFA inhaler (Breztri Aerosphere) lorazepam 0.5 mg tablet 0.5 mg PO DAILY PRN Anxiety 02/05/25 05/22/25 04/07/25 History roflumilast 500 mcg tablet 500 mcg PO DAILY@0600 02/05/25 05/22/25 05/09/25 History (Daliresp) valsartan 40 mg tablet 40 mg PO DAILY@0600 02/05/25 05/22/25 05/09/25 History omeprazole 20 mg capsule,delayed 20 mg PO DAILY@0603/01/25 05/22/25 05/09/25 History release prednisone 5 mg tablet 5 mg PO Q48H 03/01/25 05/22/25 05/09/25 History acetaminophen 650 mg 1,300 mg PO Q8H PRN Pain 03/13/25 05/22/25 04/07/25 History tablet,extended release magnesium oxide 400 mg PO DAILY@0603/13/25 05/22/25 05/09/25 History melatonin 3 mg tablet 3 mg PO BEDTIME PRN Insomnia 04/08/25 05/22/25 Unknown History oxycodone 5 mg tablet 5 mg PO Q6H PRN Severe Pain (Scale 04/08/25 05/22/25 04/07/25 History Score 7-10) chlorhexidine gluconate 0.12 % 15 ml buccal BID@05/13/25 05/22/25 05/09/25 History mouthwash furosemide 40 mg tablet 40 mg PO DAILY@0605/13/25 05/22/25 05/09/25 History furosemide 20 mg tablet 20 mg PO DAILY 06/01/25 Unknown History Physical Exam Vital Signs and Narrative: Vital Signs: Last Vital Signs Temp 97.8 F 06/01/25 12:25 Pulse 84 06/01/25 12:25 Resp 23 H 06/01/25 12:25 BP 125/58 L 06/01/25 12:25 Pulse Ox 94 06/01/25 12:25 O2 Del Method Nasal Cannula 06/01/25 12:25 O2 Flow Rate 3 06/01/25 12:25 FiO2 25 06/01/25 11:34 Oxygen Flow Rate 8 06/01/25 09:41 BMI result Body Mass Index 42.9 General: AxOx3, mild acute respiratory distress on supplemental oxygen Head: AT/NC ENT: Moist mucous membranes Neck: supple CVS; RRR, S1 S2 normal Lungs: Bilateral lower lobe rales Abd: Soft non tender, non distended Ext: No calf tenderness MSK: moving all 4 limbs Skin: Lower extremity edema 1+ Psych: Cooperative with exam Neurology: no focal deficit Results Labs 06/01/25 10:20 06/01/25 10:20 Labs: Laboratory Results - last 24 hr 06/01/25 06/01/25 10:20 10:26 MCV 95.8 MCH 30.3 MCHC 31.7 RDW 14.9 Plt Count 339 MPV 9.4 Immature Gran % (Auto) 0.2 Neut % (Auto) 70.9 Lymph % (Auto) 18.9 L [place] % (Auto) 7.3 Eos % (Auto) 2.1 Baso % (Auto) 0.6 Lymph # (Auto) 1.7 [place] # (Auto) 0.7 Eos # (Auto) 0.2 Baso # (Auto) 0.1 Abs Immat Gran (auto) 0.02 Absolute Neuts (auto) 6.4 Absolute Nucleated RBC 0.000 Nucleated RBC % (auto) 0.0 VBG pH 7.41 VBG pCO2 50 VBG pO2 103 VBG HCO3 32 H VBG O2 Saturation 100.0 VBG Base Excess 7.0 Anion Gap 12 Estim Creat Clear Calc 79.4 Estimated GFR > 60 Random Glucose 122 H Calcium 9.6 Total Bilirubin 0.2 AST 29 ALT 10 Alkaline Phosphatase 57 Troponin I High Sens 8.8 NT-Pro-B Natriuret Pep 162.8 Total Protein 7.2 Albumin 4.1 Influenza Type A (PCR) NEGATIVE Influenza Type B (PCR) NEGATIVE RSV RNA Qual (PCR) NEGATIVE SARS-CoV-2 RNA (RT-PCR) NEGATIVE Imaging Radiologist's Impressions: Impressions Chest X-Ray 06/01/25 10:02 IMPRESSION: New focal opacity in the left lateral lung base could represent atelectasis and/or pneumonia. Electronically signed by: Deric Meeks MD 06/01/2025 10:11 AM [facility] Assessment and Plan (1) Acute exacerbation of chronic obstructive pulmonary disease: Status: Acute Plan Assessment: 60-year-old female with past medical history significant for heart failure, COPD, OHS/JUANITO who presented to the hospital complaining of worsening shortness of breath that began earlier this morning. Acute on chronic hypoxic respiratory failure Suspect COPD exacerbation Heart failure with EF greater than 70% -labs reviewed, we will order respiratory panel -chest x-ray reviewed -chest CT ordered with no contrast given patient's allergy. -TTE recently done on 12/01 showing EF greater than 70%, with hyperdynamic systolic function -we will give 1 dose of Lasix 20 mg IV -we will initiate IV ceftriaxone and azithromycin for suspected COPD exacerbation -initiate scheduled nebulizing treatments -Solu-Medrol order -incentive spirometer -if no improvement we will consider pulmonology consult -LE ultrasound ordered to rule out DVT Anemia, suspect of chronic disease -we will transfuse for hemoglobin less than 7, monitor for any signs of bleeding Hypokalemia -p.o. Potassium monitored FEN: NI, replete as needed, cardiac GI PPx: Protonix while on high dose steroids DVT PPx: Lovenox/SCDs Code Status: Full Code Disposition: patient to be admitted in patient for COPD exacerbation, will require IV steroids, antibiotics and breathing treatments Total time managing care of this patient today: 75 minutes. Quality Stroke Does the patient have a stroke diagnosis?: No VTE Prior VTE?: No VTE Risk Level:: Medical - moderate - high VTE Device Contraindication: N/A - Device Ordered VTE Drug Contraindication: N/A - Med Ordered
[2025-06-01] MEDS: oxyCODONE HCl Immed Release 5 MG TABLET PO (13:56)
[2025-06-01] MEDS: Furosemide 20 MG/2 ML VIAL IVPUSH (13:57)
[2025-06-01] MEDS: Potassium Chloride Packet 20 MEQ PACKET 40 MEQ PO (13:57)
[2025-06-01] MEDS: levalbuterol HCL 1.25 MG, Ipratropium Bromide 0.5 MG INHALE ×2 (14:09→19:22)
--- NOTE | 2025-06-01 14:35 | PHA.MEDREC ---
Addendum entered by Mimi Mckay RPh 06/01/25 16:19: REVIEWED BY PHARMACIST Original Note: Pharmacy Consult ? Medication Reconciliation Pharmacy has completed the medication reconciliation. Spoke with pt and she confirmed her medications. Pt just here and discharged 05/15 and states there was no changes from that discharged and verified her meds. Pt finished her Prednisone 20mg regimen she got 05/30 this morning and she confirmed she is no longer taking Valsartan 40mg tabs and is now taking Verapramil 180mg tabs once daily.
[2025-06-01 14:39] LABS: D Dimer High Sensitivity 330 NG/ML
--- NOTE | 2025-06-01 14:52 | MHC.EDTECH ---
Patient voided 1100ml of urine via purwick
[2025-06-01] MEDS: 0.9 % Sodium Chloride Flush 3 ML SYRINGE IVFLUSH (15:27)
--- NOTE | 2025-06-01 17:19 | HO.NURTONUR ---
pt alert and oriented and sudden onset of sob this am, copd exacerbation, on bipap for about a couple hrs and received mult resp treatments and steroids, now with nad and breathing much better , iv 20 l hand, wears o2 at home, states 1 lpm at night, 2lpm at rest in the house and 3lpm nc with exertion, ambulates at home independently but uses a walker outside
[2025-06-01] MEDS: Aspirin Enteric Coated 81 MG TABLET.DR PO (21:08)
[2025-06-01] MEDS: Chlorhexidine Gluc Oral Rinse 15 ML MOUTHWASH BUCCAL (21:42)
[2025-06-02] VITALS (9 sets, daily range): BP systolic 134–167; BP diastolic 67–81; PULSE 69–88; RESP 18–22; TEMP 36.1–36.4; O2SAT 93–95
[2025-06-02] MEDS: levalbuterol HCL 1.25 MG, Ipratropium Bromide 0.5 MG INHALE ×4 (00:44→18:55)
--- NOTE | 2025-06-02 01:02 | PC.RT ---
found pt off Bipap, pt stated bipap mask hurts her face.
[2025-06-02] MEDS: Chlorhexidine Gluc Oral Rinse 15 ML MOUTHWASH BUCCAL ×2 (06:24→21:38)
[2025-06-02] MEDS: VerapamiL HCL SR 180 MG TABLET.ER PO (06:24)
--- NOTE | 2025-06-02 08:41 | HO.PM.IMPN ---
Subjective Subjective Date of Service: 06/02/25 Interval History: Patient seen examined at bedside this morning, mentioned that her breathing has improved, mentioned that she does not have allergy to morphine, wishes to try morphine for her pain as well as for her respiratory distress. Currently at 2 L of oxygen. Review of Systems Review of Systems: Yes all other systems are reviewed and are negative Physical Exam Exam: Exam: General: AxOx3, mild acute respiratory distress on supplemental oxygen, improved Head: AT/NC ENT: Moist mucous membranes Neck: supple CVS; RRR, S1 S2 normal Lungs: Bilateral lower lobe rales Abd: Soft non tender, non distended Ext: No calf tenderness MSK: moving all 4 limbs Skin: Lower extremity edema 1+ Psych: Cooperative with exam Neurology: no focal deficit Vital Signs: Vital Signs: Last Vital Signs Temp 97.6 F 06/02/25 07:47 Pulse 78 06/02/25 07:47 Resp 18 06/02/25 07:47 BP 134/67 06/02/25 07:47 Pulse Ox 95 06/02/25 07:47 O2 Del Method Nasal Cannula 06/02/25 07:47 O2 Flow Rate 2 06/02/25 07:47 FiO2 25 06/01/25 11:34 Oxygen Flow Rate 8 06/01/25 09:41 BMI result Body Mass Index 42.9 Objective Data Active Medications Acetaminophen (Acetaminophen 325 Mg Tablet) 650 mg PO Q6H PRN PRN Reason: Pain, Mild 1-3,fever,headache Acetaminophen/Butalbital/Caffeine (Butalb/Acetamin/Caff 50/325/40 Tablet) 1 tab PO DAILY MRX1 PRN PRN Reason: Migraine Headache Albuterol Sulfate (Albuterol Sulfate 90 Mcg 8 Gm Inhaler) 2 puff INHALE Q4H PRN PRN Reason: Shortness Of Breath Or Wheezing Aripiprazole (Aripiprazole 5 Mg Tablet) 5 mg PO DAILY@0600 COUNT INCLUDES THE [facility] Last Admin: 06/02/25 06:23 Dose: 5 mg Documented By: BLAINE Aspirin (Aspirin Enteric Coated 81 Mg Tablet.) 81 mg PO DAILY@1999 COUNT INCLUDES THE [facility] Last Admin: 06/01/25 21:08 Dose: 81 mg Documented By: BLAINE Atorvastatin Calcium (Atorvastatin Calcium 80 Mg Tablet) 80 mg PO DAILY@1999 COUNT INCLUDES THE [facility] Last Admin: 06/01/25 21:08 Dose: 80 mg Documented By: BLAINE Baclofen (Baclofen 20 Mg Tablet) 20 mg PO TID@0600,1199,1999 COUNT INCLUDES THE [facility] Last Admin: 06/02/25 06:23 Dose: 20 mg Documented By: BLAINE Benzocaine (Benzocaine 20 % Oral Gel 9 Gm Tube) 1 appl MUCOUS MEM QID PRN; Protocol PRN Reason: tooth pain Benzonatate (Benzonatate 100 Mg Capsule) 100 mg PO TID PRN PRN Reason: Cough Calcium Carbonate (Calcium Carbonate 750 Mg Tab.Chew) 750 mg PO Q4H PRN PRN Reason: Heartburn Calcium Carbonate/Cholecalciferol (Calcium + Vitamin D 250 Mg Tablet) 500 mg PO DAILY COUNT INCLUDES THE [facility] Chlorhexidine Gluconate (Chlorhexidine Gluc Oral Rinse 15 Ml Mouthwash) 15 ml BUCCAL BID@599,1999 COUNT INCLUDES THE [facility] Last Admin: 06/02/25 06:24 Dose: 15 ml Documented By: BLAINE Levalbuterol HCl 1.25 mg/ (Ipratropium [place] 0.5 mg) 0 mg INHALE Q6H COUNT INCLUDES THE [facility] Last Admin: 06/02/25 07:38 Dose: 1 dose Documented By: RAHEEM Duloxetine HCl (Duloxetine Hcl 60 Mg Capsule.) 60 mg PO BID@599,1999 COUNT INCLUDES THE [facility] Last Admin: 06/02/25 06:23 Dose: 60 mg Documented By: BLAINE Enoxaparin Sodium (Enoxaparin Sodium 40 Mg/0.4 Ml Syringe) 40 mg SUBCUT Q24H COUNT INCLUDES THE [facility] Last Admin: 06/01/25 13:57 Dose: 40 mg Documented By: BREA Furosemide (Furosemide 20 Mg Tablet) 20 mg PO DAILY@0600 COUNT INCLUDES THE [facility]; Protocol Last Admin: 06/02/25 06:22 Dose: 20 mg Documented By: BLAINE Gabapentin (Gabapentin 400 Mg Capsule) 1,200 mg PO TID@0600,1199,1999 COUNT INCLUDES THE [facility] Last Admin: 06/02/25 06:22 Dose: 1,200 mg Documented By: BLAINE Hydromorphone HCl (Hydromorphone Hcl 1 Mg/Ml Syringe) 0.5 mg IVPUSH Q4H PRN; Protocol PRN Reason: Pain, Severe (Pain Scale 7-10) Last Admin: 06/01/25 21:35 Dose: 0.5 mg Documented By: BLAINE Ceftriaxone Sodium 1 gm/ (Sodium Chloride) 50 mls @ 100 mls/hr IV Q24H COUNT INCLUDES THE [facility] Azithromycin 500 mg/ Sodium (Chloride) 250 mls @ 125 mls/hr IV DAILY COUNT INCLUDES THE [facility] Stop: 06/07/25 08:59 Lorazepam (Lorazepam 0.5 Mg Tablet) 0.5 mg PO BEDTIME@1999 COUNT INCLUDES THE [facility] Last Admin: 06/01/25 21:08 Dose: 0.5 mg Documented By: BLAINE Lorazepam (Lorazepam 0.5 Mg Tablet) 0.5 mg PO DAILY PRN PRN Reason: Anxiety Magnesium Hydroxide (Milk Of Magnesia 30 Ml Oral.Susp) 30 ml PO DAILY PRN PRN Reason: Constipation Magnesium Oxide (Magnesium Oxide 400 Mg Tablet) 400 mg PO DAILY@0600 COUNT INCLUDES THE [facility] Last Admin: 06/02/25 06:23 Dose: 400 mg Documented By: BLAINE Melatonin (Melatonin 3 Mg Tablet) 6 mg PO BEDTIME PRN PRN Reason: Insomnia Methylprednisolone Sodium Succinate (Methylprednisolone Sod Succ 40 Mg/Ml Vial) 40 mg IVPUSH Q8H COUNT INCLUDES THE [facility] Last Admin: 06/02/25 06:29 Dose: 40 mg Documented By: BLAINE Non-Formulary Medication (Siylldbgsb-Dgokeite-Ypuzeklvvu [Breztri Aerosphere]) 2 inhalation INHALE BID@0600,1800 COUNT INCLUDES THE [facility] Non-Formulary Medication (Hyoscyamine Sulfate) 0.25 mg PO Q6H PRN PRN Reason: Abdominal Discomfort Nystatin (Nystatin Powder 15 Gm Bottle) 1 appl TOPICAL BID COUNT INCLUDES THE [facility]; Protocol Last Admin: 06/01/25 21:44 Dose: 1 appl Documented By: BLAINE Ondansetron HCl (Ondansetron Hcl 4 Mg/2 Ml Vial) 4 mg IVPUSH Q8H PRN PRN Reason: Nausea and Vomiting Oxcarbazepine (Oxcarbazepine 300 Mg Tablet) 300 mg PO BID@0600,2000 COUNT INCLUDES THE [facility] Last Admin: 06/02/25 06:23 Dose: 300 mg Documented By: BLAINE Oxycodone HCl (Oxycodone Hcl Immed Release 5 Mg Tablet) 5 mg PO Q4H PRN PRN Reason: Pain, Moderate(Pain Scale 4-6) Last Admin: 06/01/25 13:56 Dose: 5 mg Documented By: BREA Pantoprazole Sodium (Pantoprazole Sodium 40 Mg/10 Ml Vial) 40 mg IVPUSH DAILY@0630 COUNT INCLUDES THE [facility] Last Admin: 06/02/25 06:31 Dose: 40 mg Documented By: BLAINE Polyethylene Glycol (Polyethylene Glycol 3350 17 Gm Powd.Pack) 17 gm PO DAILY PRN PRN Reason: Constipation Prazosin HCl (Prazosin Hcl 1 Mg Capsule) 2 mg PO DAILY@2000 COUNT INCLUDES THE [facility]; Protocol Last Admin: 06/01/25 21:07 Dose: 2 mg Documented By: BLAINE Roflumilast (Roflumilast 500 Mcg Tablet) 500 mcg PO DAILY@0600 COUNT INCLUDES THE [facility] Last Admin: 06/02/25 06:24 Dose: 500 mcg Documented By: BLAINE Sodium Chloride (0.9 % Sodium Chloride Flush 3 Ml Syringe) 3 ml IVFLUSH [facility] Last Admin: 06/02/25 00:06 Dose: Not Given Documented By: BLAINE Non-Admin Reason: Previously Administered Verapamil HCl (Verapamil Hcl Sr 180 Mg Tablet.Er) 180 mg PO DAILY@06 COUNT INCLUDES THE [facility]; Protocol Last Admin: 06/02/25 06:24 Dose: 180 mg Documented By: BLAINE Labs 06/02/25 08:50 06/02/25 08:50 Labs: Laboratory Results - last 24 hr 06/01/25 06/01/25 06/01/25 10:20 10:26 14:18 MCV 95.8 MCH 30.3 MCHC 31.7 RDW 14.9 Plt Count 339 MPV 9.4 Immature Gran % (Auto) 0.2 Neut % (Auto) 70.9 Lymph % (Auto) 18.9 L [place] % (Auto) 7.3 Eos % (Auto) 2.1 Baso % (Auto) 0.6 Lymph # (Auto) 1.7 [place] # (Auto) 0.7 Eos # (Auto) 0.2 Baso # (Auto) 0.1 Abs Immat Gran (auto) 0.02 Absolute Neuts (auto) 6.4 Absolute Nucleated RBC 0.000 Nucleated RBC % (auto) 0.0 D-Dimer High Sensitivty 330 VBG pH 7.41 VBG pCO2 50 VBG pO2 103 VBG HCO3 32 H VBG O2 Saturation 100.0 VBG Base Excess 7.0 Anion Gap 12 Estim Creat Clear Calc 79.4 Estimated GFR > 60 Random Glucose 122 H Calcium 9.6 Total Bilirubin 0.2 AST 29 ALT 10 Alkaline Phosphatase 57 Troponin I High Sens 8.8 NT-Pro-B Natriuret Pep 162.8 Total Protein 7.2 Albumin 4.1 Influenza Type A (PCR) NEGATIVE Influenza Type B (PCR) NEGATIVE RSV RNA Qual (PCR) NEGATIVE SARS-CoV-2 RNA (RT-PCR) NEGATIVE Assessment and Plan (1) Acute exacerbation of chronic obstructive pulmonary disease: Status: Acute Plan Assessment: 60-year-old female with past medical history significant for heart failure, COPD, OHS/JUANITO who presented to the hospital complaining of worsening shortness of breath that began earlier on 06/01. Given IV Lasix Acute on chronic hypoxic respiratory failure Suspect COPD exacerbation Heart failure with EF greater than 70% -labs reviewed, we will order respiratory panel -chest x-ray reviewed -chest CT reviewed, no PNA -TTE recently done on 05/14 showing EF greater than 70%, with hyperdynamic systolic function -we will give additional dose of Lasix 20 mg IV -Continue IV ceftriaxone and azithromycin for suspected COPD exacerbation -continue scheduled nebulizing treatments -Solu-Medrol order -incentive spirometer -if no improvement we will consider pulmonology consult Anemia, suspect of chronic disease -we will transfuse for hemoglobin less than 7, monitor for any signs of bleeding FEN: NI, replete as needed, cardiac GI PPx: Protonix while on high dose steroids DVT PPx: Lovenox/SCDs Code Status: Full Code Disposition: patient to be admitted in patient for COPD exacerbation, will require IV steroids, antibiotics and breathing treatments Total time managing care of this patient today: 45 minutes. Quality Stroke Does the patient have a stroke diagnosis?: No VTE Prior VTE?: No VTE Risk Level:: Medical - moderate - high VTE Device Contraindication: N/A - Device Ordered VTE Drug Contraindication: N/A - Med Ordered
[2025-06-02 09:10] LABS: Hematocrit 36.6 % (37.0-47.0); Hemoglobin 11.5 g/dl (12.0-16.0); Mean Corpuscular HGB Conc 31.4 g/dl (31.0-35.0); Mean Corpuscular Hemoglobin 30.1 pg (27.0-33.0); Mean Corpuscular Volume 95.8 fL (80.0-98.0); NRBC Abs Auto 0.000 X10*3/uL (0.0-0.012); NRBC Pct Auto 0.0 /100WBC (0.0-0.2); Platelet Count 326 X10*3/uL (160-400); Red Blood Count 3.82 X10*6/uL (4.20-5.50); White Blood Count 10.5 X10*3/uL (4.8-10.8)
[2025-06-02] MEDS: Calcium + Vitamin D 250 MG TABLET 500 MG PO (09:10)
[2025-06-02] MEDS: 0.9 % Sodium Chloride Flush 3 ML SYRINGE IVFLUSH ×2 (09:11→17:27)
[2025-06-02 09:36] LABS: Anion Gap 15 (12-20); Blood Urea Nitrogen 15 mg/dL (9-16); Calcium 9.7 mg/dL (8.4-10.2); Carbon Dioxide 27 mmol/L (22-29); Chloride 106 mmol/L (96-108); Creatinine Clr Calc Pharmacy 88.1; Estimated Glomerular Filt Rate > 60; Magnesium 2.2 mg/dL (1.6-2.6); Potassium 4.0 mmol/L (3.3-5.1); Sodium 144 mmol/L (135-145)
[2025-06-02 10:09] LABS: Thyroid Stimulating Hormone 0.82 uIU/mL (0.32-4.0)
[2025-06-02] MEDS: Albuterol Sulfate 90 MCG 8 GM INHALER 2 PUFF INHALE (12:41)
[2025-06-02] MEDS: Furosemide 20 MG/2 ML VIAL IVPUSH (13:07)
--- NOTE | 2025-06-02 16:22 | MHC.CM.PN ---
Addendum entered by Tara Keenan 06/03/25 16:28: [facility] IS PROVIDING SN, [employer] AND PT PT ALSO HAS A CPAP AND SHOWER CHAIR FOR DME Original Note: PT LIVES WITH HER AND IS TYPICALLY INDEPENDENT WITH PERSONAL CARE SHE WAS ACTIVE WITH [facility] SHE HAS A [facility]LLATOR AND O2 FROM [facility] HCP ON FILE PCP: MILES DAVIS DCP: HOME TODAY WITH RESUMPTION OF [facility] VS STR PT WENT TO [facility] TO TRANSPORT
[2025-06-02] MEDS: Aspirin Enteric Coated 81 MG TABLET.DR PO (21:37)
[2025-06-03] VITALS (8 sets, daily range): BP systolic 134–175; BP diastolic 65–81; PULSE 63–91; RESP 18–22; TEMP 36.1–36.4; O2SAT 91–96
[2025-06-03] MEDS: levalbuterol HCL 1.25 MG, Ipratropium Bromide 0.5 MG INHALE ×4 (00:55→19:14)
[2025-06-03] MEDS: VerapamiL HCL SR 180 MG TABLET.ER PO (05:39)
[2025-06-03] MEDS: Chlorhexidine Gluc Oral Rinse 15 ML MOUTHWASH BUCCAL ×2 (05:45→21:04)
[2025-06-03 07:08] LABS: Hematocrit 37.7 % (37.0-47.0); Hemoglobin 11.7 g/dl (12.0-16.0); Mean Corpuscular HGB Conc 31.0 g/dl (31.0-35.0); Mean Corpuscular Hemoglobin 29.8 pg (27.0-33.0); Mean Corpuscular Volume 95.9 fL (80.0-98.0); NRBC Abs Auto 0.000 X10*3/uL (0.0-0.012); NRBC Pct Auto 0.0 /100WBC (0.0-0.2); Platelet Count 370 X10*3/uL (160-400); Red Blood Count 3.93 X10*6/uL (4.20-5.50); White Blood Count 9.0 X10*3/uL (4.8-10.8)
[2025-06-03 07:33] LABS: Anion Gap 14 (12-20); Blood Urea Nitrogen 17 mg/dL (9-16); Calcium 9.7 mg/dL (8.4-10.2); Carbon Dioxide 30 mmol/L (22-29); Chloride 106 mmol/L (96-108); Creatinine Clr Calc Pharmacy 91.9; Estimated Glomerular Filt Rate > 60; Magnesium 2.3 mg/dL (1.6-2.6); Potassium 4.3 mmol/L (3.3-5.1); Sodium 146 mmol/L (135-145)
[2025-06-03] MEDS: Calcium + Vitamin D 250 MG TABLET 500 MG PO (08:16)
[2025-06-03] MEDS: 0.9 % Sodium Chloride Flush 3 ML SYRINGE IVFLUSH ×2 (08:17→14:07)
--- NOTE | 2025-06-03 09:18 | HO.PM.IMPN ---
Subjective Subjective Date of Service: 06/03/25 Interval History: Patient seen examined at bedside this morning, patient states that her breathing has improved, however is feeling very weak, mellitus that she did not wish to go to short-term rehab him as it has not helped her in the past. Patient mentioned that her breathing worsens prior to eating or with minimal exertion. Review of Systems Review of Systems: Yes all other systems are reviewed and are negative Physical Exam Exam: Exam: General: AxOx3, mild acute respiratory distress on supplemental oxygen, improved Head: AT/NC ENT: Moist mucous membranes Neck: supple CVS; RRR, S1 S2 normal Lungs: Bilateral lower lobe rales Abd: Soft non tender, non distended Ext: No calf tenderness MSK: moving all 4 limbs Skin: Lower extremity edema 1+ Psych: Cooperative with exam Neurology: no focal deficit Vital Signs: Vital Signs: Last Vital Signs Temp 97.0 F 06/03/25 07:58 Pulse 63 06/03/25 07:58 Resp 18 06/03/25 07:58 BP 175/78 H 06/03/25 07:58 Pulse Ox 93 06/03/25 07:58 O2 Del Method Nasal Cannula 06/03/25 07:58 O2 Flow Rate 2 06/03/25 07:58 FiO2 25 06/01/25 11:34 Oxygen Flow Rate 8 06/01/25 09:41 BMI result Body Mass Index 42.9 Objective Data Active Medications Acetaminophen (Acetaminophen 325 Mg Tablet) 650 mg PO Q6H PRN PRN Reason: Pain, Mild 1-3,fever,headache Acetaminophen/Butalbital/Caffeine (Butalb/Acetamin/Caff 50/325/40 Tablet) 1 tab PO DAILY MRX1 PRN PRN Reason: Migraine Headache Albuterol Sulfate (Albuterol Sulfate 90 Mcg 8 Gm Inhaler) 2 puff INHALE Q4H PRN PRN Reason: Shortness Of Breath Or Wheezing Last Admin: 06/02/25 12:41 Dose: 2 puff Documented By: ZENAIDA Aripiprazole (Aripiprazole 5 Mg Tablet) 5 mg PO DAILY@0600 [facility] Last Admin: 06/03/25 05:39 Dose: 5 mg Documented By: BLAINE Aspirin (Aspirin Enteric Coated 81 Mg Tablet.) 81 mg PO DAILY@2000 [facility] Last Admin: 06/02/25 21:37 Dose: 81 mg Documented By: BLAINE Atorvastatin Calcium (Atorvastatin Calcium 80 Mg Tablet) 80 mg PO DAILY@1999 [facility] Last Admin: 06/02/25 21:38 Dose: 80 mg Documented By: BLAINE Baclofen (Baclofen 20 Mg Tablet) 20 mg PO TID@0600,1199,1999 [facility] Last Admin: 06/03/25 05:38 Dose: 20 mg Documented By: BLAINE Benzocaine (Benzocaine 20 % Oral Gel 9 Gm Tube) 1 appl MUCOUS MEM QID PRN; Protocol PRN Reason: tooth pain Benzonatate (Benzonatate 100 Mg Capsule) 100 mg PO TID PRN PRN Reason: Cough Calcium Carbonate (Calcium Carbonate 750 Mg Tab.Chew) 750 mg PO Q4H PRN PRN Reason: Heartburn Calcium Carbonate/Cholecalciferol (Calcium + Vitamin D 250 Mg Tablet) 500 mg PO DAILY [facility] Last Admin: 06/03/25 08:16 Dose: 500 mg Documented By: MICHI Chlorhexidine Gluconate (Chlorhexidine Gluc Oral Rinse 15 Ml Mouthwash) 15 ml BUCCAL BID@ [facility] Last Admin: 06/03/25 05:45 Dose: 15 ml Documented By: BLAINE Levalbuterol HCl 1.25 mg/ (Ipratropium [place] 0.5 mg) 0 mg INHALE Q6H [facility] Last Admin: 06/03/25 07:30 Dose: 1 dose Documented By: RAHEEM Duloxetine HCl (Duloxetine Hcl 60 Mg Capsule.Dr) 60 mg PO BID@ [facility] Last Admin: 06/03/25 05:39 Dose: 60 mg Documented By: BLAINE Enoxaparin Sodium (Enoxaparin Sodium 40 Mg/0.4 Ml Syringe) 40 mg SUBCUT Q24H [facility] Last Admin: 06/02/25 13:07 Dose: 40 mg Documented By: MICHI Furosemide (Furosemide 20 Mg Tablet) 20 mg PO DAILY@06 [facility]; Protocol Last Admin: 06/03/25 05:38 Dose: 20 mg Documented By: BLAINE Gabapentin (Gabapentin 400 Mg Capsule) 1,200 mg PO TID@0600,1199,1999 [facility] Last Admin: 06/03/25 05:37 Dose: 1,200 mg Documented By: BLAINE Hydromorphone HCl (Hydromorphone Hcl 1 Mg/Ml Syringe) 0.5 mg IVPUSH Q4H PRN; Protocol PRN Reason: Pain, Severe (Pain Scale 7-10) Last Admin: 06/01/25 21:35 Dose: 0.5 mg Documented By: BLAINE Ceftriaxone Sodium 1 gm/ (Sodium Chloride) 50 mls @ 100 mls/hr IV Q24H [facility] Last Infusion: 06/02/25 13:51 Dose: Infused Documented By: MICHI Azithromycin 500 mg/ Sodium (Chloride) 250 mls @ 125 mls/hr IV DAILY [facility] Stop: 06/07/25 08:59 Last Admin: 06/03/25 08:20 Dose: 125 mls/hr Documented By: MICHI Lorazepam (Lorazepam 0.5 Mg Tablet) 0.5 mg PO BEDTIME@2000 [facility] Last Admin: 06/02/25 21:38 Dose: 0.5 mg Documented By: BLAINE Lorazepam (Lorazepam 0.5 Mg Tablet) 0.5 mg PO DAILY PRN PRN Reason: Anxiety Magnesium Hydroxide (Milk Of Magnesia 30 Ml Oral.Susp) 30 ml PO DAILY PRN PRN Reason: Constipation Magnesium Oxide (Magnesium Oxide 400 Mg Tablet) 400 mg PO DAILY@0600 [facility] Last Admin: 06/03/25 05:39 Dose: 400 mg Documented By: BLAINE Melatonin (Melatonin 3 Mg Tablet) 6 mg PO BEDTIME PRN PRN Reason: Insomnia Methylprednisolone Sodium Succinate (Methylprednisolone Sod Succ 40 Mg/Ml Vial) 40 mg IVPUSH Q8H [facility] Last Admin: 06/03/25 05:46 Dose: 40 mg Documented By: BLAINE Morphine Sulfate (Morphine Sulfate 4 Mg/Ml Cartridge) 2 mg IVPUSH Q4H PRN; Protocol PRN Reason: Pain, Moderate(Pain Scale 4-6) Last Admin: 06/03/25 05:50 Dose: 2 mg Documented By: BLAINE Comments: per pt request Pt Owned (Budesonide -Glycopyr-Formoterol [Breztri Aerosphere ] 160-9-4.8 Mc 2 inhalation INHALE BID@0600,1800 [facility] Last Admin: 06/03/25 07:38 Dose: 2 inhalation Documented By: RAHEEM Pt Owned ( Hyoscyamine Sulfate 0.125 Mg Tablet) 0.25 mg PO Q6H PRN PRN Reason: Abdominal Discomfort Nystatin (Nystatin Powder 15 Gm Bottle) 1 appl TOPICAL BID [facility]; Protocol Last Admin: 06/03/25 08:22 Dose: 1 appl Documented By: MICHI Ondansetron HCl (Ondansetron Hcl 4 Mg/2 Ml Vial) 4 mg IVPUSH Q8H PRN PRN Reason: Nausea and Vomiting Oxcarbazepine (Oxcarbazepine 300 Mg Tablet) 300 mg PO BID@599,1999 [facility] Last Admin: 06/03/25 05:38 Dose: 300 mg Documented By: BLAINE Pantoprazole Sodium (Pantoprazole Sodium 40 Mg/10 Ml Vial) 40 mg IVPUSH DAILY@629 [facility] Last Admin: 06/03/25 05:47 Dose: 40 mg Documented By: BLAINE Polyethylene Glycol (Polyethylene Glycol 3350 17 Gm Powd.Pack) 17 gm PO DAILY PRN PRN Reason: Constipation Prazosin HCl (Prazosin Hcl 1 Mg Capsule) 2 mg PO DAILY@1999 [facility]; Protocol Last Admin: 06/02/25 21:37 Dose: 2 mg Documented By: BLAINE Roflumilast (Roflumilast 500 Mcg Tablet) 500 mcg PO DAILY@599 [facility] Last Admin: 06/03/25 05:38 Dose: 500 mcg Documented By: BLAINE Sodium Chloride (0.9 % Sodium Chloride Flush 3 Ml Syringe) 3 ml IVFLUSH [facility] Last Admin: 06/03/25 08:17 Dose: 3 ml Documented By: MICHI Verapamil HCl (Verapamil Hcl Sr 180 Mg Tablet.Er) 180 mg PO DAILY@599 [facility]; Protocol Last Admin: 06/03/25 05:39 Dose: 180 mg Documented By: BLAINE Labs 06/03/25 06:08 06/03/25 06:08 Labs: Laboratory Results - last 24 hr 06/02/25 06/03/25 08:50 06:08 MCV 95.9 MCH 29.8 MCHC 31.0 RDW 14.7 Plt Count 370 MPV 9.6 Absolute Nucleated RBC 0.000 Nucleated RBC % (auto) 0.0 Anion Gap 15 14 Estim Creat Clear Calc 88.1 91.9 Estimated GFR > 60 > 60 Random Glucose 100 109 Calcium 9.7 9.7 Magnesium 2.2 2.3 TSH 0.82 Assessment and Plan (1) Acute exacerbation of chronic obstructive pulmonary disease: Status: Acute Plan Assessment: 60-year-old female with past medical history significant for heart failure, COPD, OHS/JUANITO who presented to the hospital complaining of worsening shortness of breath that began earlier on 06/01. Given IV Lasix Acute on chronic hypoxic respiratory failure, improving Suspect COPD exacerbation Heart failure with EF greater than 70% -labs reviewed, respiratory panel negative -chest x-ray reviewed -chest CT reviewed, no PNA -TTE recently done on 05/14 showing EF greater than 70%, with hyperdynamic systolic function -s/p Lasix 20 mg IV x 2 doses -Continue IV ceftriaxone and azithromycin for suspected COPD exacerbation -continue scheduled nebulizing treatments -Solu-Medrol order -incentive spirometer -if no improvement we will consider pulmonology consult Anemia, suspect of chronic disease -we will transfuse for hemoglobin less than 7, monitor for any signs of bleeding Ambulatory dysfunction and generalized weakness PT/OT consulted FEN: NI, replete as needed, cardiac GI PPx: Protonix while on high dose steroids DVT PPx: Lovenox/SCDs Code Status: Full Code Disposition: patient to be admitted in patient for COPD exacerbation, will require IV steroids, antibiotics and breathing treatments Total time managing care of this patient today: 45 minutes. Quality Stroke Does the patient have a stroke diagnosis?: No VTE Prior VTE?: No VTE Risk Level:: Medical - moderate - high VTE Device Contraindication: N/A - Device Ordered VTE Drug Contraindication: N/A - Med Ordered
[2025-06-03] MEDS: Albuterol Sulfate 90 MCG 8 GM INHALER 2 PUFF INHALE (12:20)
[2025-06-03] MEDS: Aspirin Enteric Coated 81 MG TABLET.DR PO (21:04)
[2025-06-04] VITALS (10 sets, daily range): BP systolic 137–148; BP diastolic 65–88; PULSE 66–91; RESP 16–18; TEMP 36.1–37.2; O2SAT 93–97
[2025-06-04] MEDS: levalbuterol HCL 1.25 MG, Ipratropium Bromide 0.5 MG INHALE ×4 (02:02→19:04)
[2025-06-04] MEDS: VerapamiL HCL SR 180 MG TABLET.ER PO (06:22)
[2025-06-04] MEDS: Chlorhexidine Gluc Oral Rinse 15 ML MOUTHWASH BUCCAL ×2 (06:22→20:16)
[2025-06-04 06:36] LABS: Hematocrit 38.4 % (37.0-47.0); Hemoglobin 12.0 g/dl (12.0-16.0); Mean Corpuscular HGB Conc 31.3 g/dl (31.0-35.0); Mean Corpuscular Hemoglobin 30.1 pg (27.0-33.0); Mean Corpuscular Volume 96.2 fL (80.0-98.0); NRBC Abs Auto 0.000 X10*3/uL (0.0-0.012); NRBC Pct Auto 0.0 /100WBC (0.0-0.2); Platelet Count 370 X10*3/uL (160-400); Red Blood Count 3.99 X10*6/uL (4.20-5.50); White Blood Count 9.8 X10*3/uL (4.8-10.8)
[2025-06-04 06:51] LABS: Anion Gap 12 (12-20); Blood Urea Nitrogen 16 mg/dL (9-16); Calcium 9.8 mg/dL (8.4-10.2); Carbon Dioxide 33 mmol/L (22-29); Chloride 104 mmol/L (96-108); Creatinine Clr Calc Pharmacy 96.0; Estimated Glomerular Filt Rate > 60; Magnesium 2.3 mg/dL (1.6-2.6); Potassium 4.2 mmol/L (3.3-5.1); Sodium 145 mmol/L (135-145)
[2025-06-04] MEDS: Calcium + Vitamin D 250 MG TABLET 500 MG PO (08:37)
[2025-06-04] MEDS: 0.9 % Sodium Chloride Flush 3 ML SYRINGE IVFLUSH ×3 (08:38→20:27)
--- NOTE | 2025-06-04 11:34 | P.PNIM_ITS ---
Subjective Subjective Date of Service: 06/04/25 Interval History: Patient seen and examined at bedside this morning, at this time continues with shortness of breath on [id number] exertion, pulmonology consulted. Review of Systems Review of Systems: Yes all other systems are reviewed and are negative Physical Exam 2 Exam: Exam: General: AxOx3, acute respiratory distress on supplemental oxygen on minimal exertion Head: AT/NC ENT: Moist mucous membranes Neck: supple CVS; RRR, S1 S2 normal Lungs: Bilateral lower lobe rales, improved Abd: Soft non tender, non distended Ext: No calf tenderness MSK: moving all 4 limbs Skin: Lower extremity edema 1+ Psych: Cooperative with exam Neurology: no focal deficit Vital Signs: Vital Signs: Last Vital Signs Temp 97.1 F 06/04/25 07:58 Pulse 76 06/04/25 08:14 Resp 16 06/04/25 08:14 BP 142/66 H 06/04/25 07:58 Pulse Ox 96 06/04/25 07:58 O2 Del Method Room Air 06/04/25 07:58 O2 Flow Rate 3 06/04/25 03:00 FiO2 25 06/01/25 11:34 Oxygen Flow Rate 8 06/01/25 09:41 BMI result Body Mass Index 42.9 Objective Data Active Medications Acetaminophen (Acetaminophen 325 Mg Tablet) 650 mg PO Q6H PRN PRN Reason: Pain, Mild 1-3,fever,headache Acetaminophen/Butalbital/Caffeine (Butalb/Acetamin/Caff 50/325/40 Tablet) 1 tab PO DAILY MRX1 PRN PRN Reason: Migraine Headache Albuterol Sulfate (Albuterol Sulfate 90 Mcg 8 Gm Inhaler) 2 puff INHALE Q4H PRN PRN Reason: Shortness Of Breath Or Wheezing Last Admin: 06/03/25 12:20 Dose: 2 puff Documented By: MICHI Aripiprazole (Aripiprazole 5 Mg Tablet) 5 mg PO DAILY@0600 [facility] Last Admin: 06/04/25 06:21 Dose: 5 mg Documented By: BLAINE Aspirin (Aspirin Enteric Coated 81 Mg Tablet.) 81 mg PO DAILY@1999 [facility] Last Admin: 06/03/25 21:04 Dose: 81 mg Documented By: BLAINE Atorvastatin Calcium (Atorvastatin Calcium 80 Mg Tablet) 80 mg PO DAILY@1999 [facility] Last Admin: 06/03/25 21:03 Dose: 80 mg Documented By: BLAINE Baclofen (Baclofen 20 Mg Tablet) 20 mg PO TID@599, [facility] Last Admin: 06/04/25 06:21 Dose: 20 mg Documented By: BLAINE Benzocaine (Benzocaine 20 % Oral Gel 9 Gm Tube) 1 appl MUCOUS MEM QID PRN; Protocol PRN Reason: tooth pain Benzonatate (Benzonatate 100 Mg Capsule) 100 mg PO TID PRN PRN Reason: Cough Calcium Carbonate (Calcium Carbonate 750 Mg Tab.Chew) 750 mg PO Q4H PRN PRN Reason: Heartburn Calcium Carbonate/Cholecalciferol (Calcium + Vitamin D 250 Mg Tablet) 500 mg PO DAILY [facility] Last Admin: 06/04/25 08:37 Dose: 500 mg Documented By: XAVIER Chlorhexidine Gluconate (Chlorhexidine Gluc Oral Rinse 15 Ml Mouthwash) 15 ml BUCCAL BID@ [facility] Last Admin: 06/04/25 06:22 Dose: 15 ml Documented By: BLAINE Levalbuterol HCl 1.25 mg/ (Ipratropium [place] 0.5 mg) 0 mg INHALE Q6H [facility] Last Admin: 06/04/25 08:12 Dose: 1 dose Documented By: WILL Duloxetine HCl (Duloxetine Hcl 60 Mg Capsule.Dr) 60 mg PO BID@ [facility] Last Admin: 06/04/25 06:21 Dose: 60 mg Documented By: BLAINE Enoxaparin Sodium (Enoxaparin Sodium 40 Mg/0.4 Ml Syringe) 40 mg SUBCUT Q24H [facility] Last Admin: 06/03/25 12:22 Dose: 40 mg Documented By: MICHI Furosemide (Furosemide 20 Mg Tablet) 20 mg PO DAILY@599 [facility]; Protocol Last Admin: 06/04/25 06:22 Dose: 20 mg Documented By: BLAINE Gabapentin (Gabapentin 400 Mg Capsule) 1,200 mg PO TID@599,1199,1999 [facility] Last Admin: 06/04/25 06:21 Dose: 1,200 mg Documented By: BLAINE Hydromorphone HCl (Hydromorphone Hcl 1 Mg/Ml Syringe) 0.5 mg IVPUSH Q4H PRN; Protocol PRN Reason: Pain, Severe (Pain Scale 7-10) Last Admin: 06/01/25 21:35 Dose: 0.5 mg Documented By: BLAINE Ceftriaxone Sodium 1 gm/ (Sodium Chloride) 50 mls @ 100 mls/hr IV Q24H [facility] Last Infusion: 06/03/25 13:09 Dose: Infused Documented By: MICHI Azithromycin 500 mg/ Sodium (Chloride) 250 mls @ 125 mls/hr IV DAILY [facility] Stop: 06/07/25 08:59 Last Infusion: 06/04/25 10:47 Dose: Infused Documented By: XAVIER Lorazepam (Lorazepam 0.5 Mg Tablet) 0.5 mg PO BEDTIME@2000 [facility] Last Admin: 06/03/25 21:03 Dose: 0.5 mg Documented By: BLAINE Lorazepam (Lorazepam 0.5 Mg Tablet) 0.5 mg PO DAILY PRN PRN Reason: Anxiety Last Admin: 06/04/25 08:37 Dose: 0.5 mg Documented By: XAVIER Magnesium Hydroxide (Milk Of Magnesia 30 Ml Oral.Susp) 30 ml PO DAILY PRN PRN Reason: Constipation Magnesium Oxide (Magnesium Oxide 400 Mg Tablet) 400 mg PO DAILY@0600 [facility] Last Admin: 06/04/25 06:22 Dose: 400 mg Documented By: BLAINE Melatonin (Melatonin 3 Mg Tablet) 6 mg PO BEDTIME PRN PRN Reason: Insomnia Methylprednisolone Sodium Succinate (Methylprednisolone Sod Succ 40 Mg/Ml Vial) 40 mg IVPUSH Q8H [facility] Last Admin: 06/04/25 06:28 Dose: 40 mg Documented By: BLAINE Morphine Sulfate (Morphine Sulfate 4 Mg/Ml Cartridge) 2 mg IVPUSH Q4H PRN; Protocol PRN Reason: Pain, Moderate(Pain Scale 4-6) Last Admin: 06/04/25 08:38 Dose: 2 mg Documented By: XAVIER Pt Owned (Budesonide -Glycopyr-Formoterol [Breztri Aerosphere ] 160-9-4.8 Mc 2 inhalation INHALE BID@0600,1800 [facility] Last Admin: 06/03/25 19:17 Dose: 2 inhalation Documented By: CASSIDY Pt Owned ( Hyoscyamine Sulfate 0.125 Mg Tablet) 0.25 mg PO Q6H PRN PRN Reason: Abdominal Discomfort Nystatin (Nystatin Powder 15 Gm Bottle) 1 appl TOPICAL BID [facility]; Protocol Last Admin: 06/04/25 08:47 Dose: 1 appl Documented By: XAVIER Ondansetron HCl (Ondansetron Hcl 4 Mg/2 Ml Vial) 4 mg IVPUSH Q8H PRN PRN Reason: Nausea and Vomiting Oxcarbazepine (Oxcarbazepine 300 Mg Tablet) 300 mg PO BID@599,1999 [facility] Last Admin: 06/04/25 06:22 Dose: 300 mg Documented By: BLAINE Pantoprazole Sodium (Pantoprazole Sodium 40 Mg/10 Ml Vial) 40 mg IVPUSH DAILY@629 [facility] Last Admin: 06/04/25 06:28 Dose: 40 mg Documented By: BLAINE Polyethylene Glycol (Polyethylene Glycol 3350 17 Gm Powd.Pack) 17 gm PO DAILY PRN PRN Reason: Constipation Prazosin HCl (Prazosin Hcl 1 Mg Capsule) 2 mg PO DAILY@1999 [facility]; Protocol Last Admin: 06/03/25 21:03 Dose: 2 mg Documented By: BLAINE Roflumilast (Roflumilast 500 Mcg Tablet) 500 mcg PO DAILY@06 [facility] Last Admin: 06/04/25 06:22 Dose: 500 mcg Documented By: BLAINE Sodium Chloride (0.9 % Sodium Chloride Flush 3 Ml Syringe) 3 ml IVFLUSH [facility] Last Admin: 06/04/25 08:38 Dose: 3 ml Documented By: XAVIER Verapamil HCl (Verapamil Hcl Sr 180 Mg Tablet.Er) 180 mg PO DAILY@06 [facility]; Protocol Last Admin: 06/04/25 06:22 Dose: 180 mg Documented By: BLAINE Labs 06/04/25 05:23 06/04/25 05:23 Labs: Laboratory Results - last 24 hr 06/04/25 05:23 MCV 96.2 MCH 30.1 MCHC 31.3 RDW 14.7 Plt Count 370 MPV 9.8 Absolute Nucleated RBC 0.000 Nucleated RBC % (auto) 0.0 Anion Gap 12 Estim Creat Clear Calc 96.0 Estimated GFR > 60 Random Glucose 119 H Calcium 9.8 Magnesium 2.3 Assessment and Plan (1) Acute exacerbation of chronic obstructive pulmonary disease: Status: Acute Plan Assessment: 60-year-old female with past medical history significant for heart failure, COPD, OHS/JUANITO who presented to the hospital complaining of worsening shortness of breath that began earlier on 06/01. Given IV Lasix Acute on chronic hypoxic respiratory failure, improving Suspect COPD exacerbation Heart failure with EF greater than 70% -labs reviewed, respiratory panel negative -chest x-ray reviewed -chest CT reviewed, no PNA -TTE recently done on 05/14 showing EF greater than 70%, with hyperdynamic systolic function -s/p Lasix 20 mg IV x 2 doses -Continue IV ceftriaxone and azithromycin for suspected COPD exacerbation -continue scheduled nebulizing treatments -Solu-Medrol order -incentive spirometer -Pulmonology consulted for SOB Anemia, suspect of chronic disease -we will transfuse for hemoglobin less than 7, monitor for any signs of bleeding Ambulatory dysfunction and generalized weakness PT/OT consulted FEN: NI, replete as needed, cardiac GI PPx: Protonix while on high dose steroids DVT PPx: Lovenox/SCDs Code Status: Full Code Disposition: patient to be admitted in patient for COPD exacerbation, will require IV steroids, antibiotics and breathing treatments. spoke with Pulm, will adjust treatments and observe Total time managing care of this patient today: 45 minutes. Quality Stroke Does the patient have a stroke diagnosis?: No VTE Prior VTE?: No VTE Risk Level:: Medical - moderate - high VTE Device Contraindication: N/A - Device Ordered VTE Drug Contraindication: N/A - Med Ordered
--- NOTE | 2025-06-04 16:17 | MHC.CM.PN ---
FOSTER MET WITH PT TO DISCUSS DCP PT REPORTS SHE AND THE ATHLETIC FIELD CUSTODIAN SPOKE TO HER AND THE PLAN IS TO HAVE PT AT HOME TO INCREASE STAMINA AND THEN TRANSITION TO OUTPATIENT RT PT ACTIVE WITH SWETHA ROCHA
[2025-06-04] MEDS: Albuterol Sulfate 90 MCG 8 GM INHALER 2 PUFF INHALE (16:28)
--- NOTE | 2025-06-04 19:28 | PM.CNPUL ---
History of Present Illness History of Present Illness Consult date: 06/04/25 Chief complaint: shortness of breath Narrative: This is an inpatient pulmonary consultation. Patient is a 60-year-old female with past medical history COPD/emphysema on home O2 1-3 L, tobacco dependence, hypertension, hyperlipidemia, nephrolithiasis, CVA, obesity , moderate aortic stenosis with small pericardial effusion noted from echo 12/01/2024, trigeminal neuralgia, occipital neuralgia, chronic pain syndrome, JUANITO but does not tolerate PAP, CVID on IVIG, was brought in by ambulance to the emergency department with complaints of shortness of breath. The patient had a bloodgas that was stable. CT chest personally reviewed by me was overall reassuring, with evidence of bronchitis and bibasilar atelectasis. She continues to use the oxygen and use her respiratory therapy. Review of Systems Constitutional: Constitutional: Denies fever(s) Eyes: Eyes: Denies blurry vision and Denies itchy eyes ENT: Denies sinus pressure and Denies other ( Thrush) Cardiovascular: Cardiovascular: Denies chest pain, Reports pedal edema, Reports dyspnea, Reports dyspnea on exertion, Reports orthopnea and Denies paroxysmal nocturnal dyspnea Respiratory: Respiratory: Reports cough, Denies hemoptysis, Denies excessive phlegm production, Reports dyspnea, Reports dyspnea on exertion and Reports wheezing Gastrointestinal: Gastrointestinal: Denies abdominal pain and Denies heartburn Musculoskeletal: Musculoskeletal: Denies myalgias, Denies arthralgias and Denies joint swelling Integumentary/Breasts: Skin/Breast: Denies rash Neurologic: Denies memory loss and Denies seizure-like activity Psychiatric: Psychiatric: Denies abnormal sleep pattern, Denies anxiety and Denies memory loss Endocrine: Endocrine: Denies heat intolerance Hematologic/Lymphatic: Hematologic/Lymphatic: Denies easy bruising Allergic/Immunologic: Allergic/Immunologic: Denies itchy eyes, Denies seasonal rhinorrhea and Reports wheezing PMFSH Past Medical History Medical History (Updated 06/04/25 @ 19:36 by Denys Henriquez MD) JUANITO (obstructive sleep apnea) Chronic respiratory failure Diastolic dysfunction with acute on chronic heart failure COPD (chronic obstructive pulmonary disease) Chronic lung disease (~05/13/25) Chronic lung disease Morbid obesity Pulmonary nodules Diastolic heart failure Chronic lung disease Hypoxia Panic disorder Hypertension Chronic hypercapnic respiratory failure Aortic stenosis Asthma Hypogammaglobulinemia Smoker Elevated troponin COPD (chronic obstructive pulmonary disease) Trigeminal neuralgia Mixed hyperlipidemia Peripheral neuropathy Tobacco use disorder Mood disorder Surgical History Surgical History History of esophagogastroduodenoscopy (EGD) History of colonoscopy History of lumbar discectomy History of tubal ligation History of excision of mass History of shoulder surgery Social History Social History Household Members: Significant Other Household Members Other:: dog Housing: Condominium Do you presently have visiting nurse or other home services: Yes (twice a week) Alcohol intake: current Alcohol intake frequency: holidays/special occasions only Alcohol type: hard liquor Comment: refuses alarms Patient Tobacco Use Status: Former Tobacco user Tobacco use type: Cigarette Cigarette Packs Per Day: 4 Cigarettes Per Day: 80.0 Years Smoked: 40 e-Cigarette/Vaping Use: Never Used Second Hand Smoke Exposure: No Substance Use Type: Marijuana Advance Directives Date on File: 03/09/23 service: No Meds Allergies Allergy/AdvReac Type Severity Reaction Status Date / Time Iodinated Contrast Media (IV Allergy Intermediate HIVES Verified 06/01/25 09:43 CONTRAST) latex (LATEX) Allergy Unknown RASH Verified 06/01/25 09:43 adhesive tape Allergy Rash Verified 06/01/25 09:43 morphine (MORPHINE) AdvReac Unknown VOMITING Verified 06/01/25 09:43 Active Medications: Current Medications Acetaminophen (Acetaminophen 325 Mg Tablet) 650 mg PO Q6H PRN PRN Reason: Pain, Mild 1-3,fever,headache Acetaminophen/Butalbital/Caffeine (Butalb/Acetamin/Caff 50/325/40 Tablet) 1 tab PO DAILY MRX1 PRN PRN Reason: Migraine Headache Albuterol Sulfate (Albuterol Sulfate 90 Mcg 8 Gm Inhaler) 2 puff INHALE Q4H PRN PRN Reason: Shortness Of Breath Or Wheezing Last Admin: 06/04/25 16:28 Dose: 2 puff Aripiprazole (Aripiprazole 5 Mg Tablet) 5 mg PO DAILY@0600 [facility] Last Admin: 06/04/25 06:21 Dose: 5 mg Aspirin (Aspirin Enteric Coated 81 Mg Tablet.) 81 mg PO DAILY@2000 [facility] Last Admin: 06/03/25 21:04 Dose: 81 mg Atorvastatin Calcium (Atorvastatin Calcium 80 Mg Tablet) 80 mg PO DAILY@1999 [facility] Last Admin: 06/03/25 21:03 Dose: 80 mg Baclofen (Baclofen 20 Mg Tablet) 20 mg PO TID@0600,1199,1999 [facility] Last Admin: 06/04/25 11:58 Dose: 20 mg Benzocaine (Benzocaine 20 % Oral Gel 9 Gm Tube) 1 appl MUCOUS MEM QID PRN; Protocol PRN Reason: tooth pain Benzonatate (Benzonatate 100 Mg Capsule) 100 mg PO TID PRN PRN Reason: Cough Calcium Carbonate (Calcium Carbonate 750 Mg Tab.Chew) 750 mg PO Q4H PRN PRN Reason: Heartburn Calcium Carbonate/Cholecalciferol (Calcium + Vitamin D 250 Mg Tablet) 500 mg PO DAILY [facility] Last Admin: 06/04/25 08:37 Dose: 500 mg Chlorhexidine Gluconate (Chlorhexidine Gluc Oral Rinse 15 Ml Mouthwash) 15 ml BUCCAL BID@ [facility] Last Admin: 06/04/25 06:22 Dose: 15 ml Levalbuterol HCl 1.25 mg/ (Ipratropium [place] 0.5 mg) 0 mg INHALE Q6H [facility] Last Admin: 06/04/25 19:04 Dose: 1 dose Duloxetine HCl (Duloxetine Hcl 60 Mg Capsule.Dr) 60 mg PO BID@599,1999 [facility] Last Admin: 06/04/25 06:21 Dose: 60 mg Enoxaparin Sodium (Enoxaparin Sodium 40 Mg/0.4 Ml Syringe) 40 mg SUBCUT Q24H [facility] Last Admin: 06/04/25 14:24 Dose: 40 mg Furosemide (Furosemide 20 Mg Tablet) 20 mg PO DAILY@06 [facility]; Protocol Last Admin: 06/04/25 06:22 Dose: 20 mg Gabapentin (Gabapentin 400 Mg Capsule) 1,200 mg PO TID@599,1199,1999 [facility] Last Admin: 06/04/25 12:02 Dose: 1,200 mg Hydromorphone HCl (Hydromorphone Hcl 1 Mg/Ml Syringe) 0.5 mg IVPUSH Q4H PRN; Protocol PRN Reason: Pain, Severe (Pain Scale 7-10) Last Admin: 06/01/25 21:35 Dose: 0.5 mg Ceftriaxone Sodium 1 gm/ (Sodium Chloride) 50 mls @ 100 mls/hr IV Q24H [facility] Last Infusion: 06/04/25 12:38 Dose: Infused Azithromycin 500 mg/ Sodium (Chloride) 250 mls @ 125 mls/hr IV DAILY [facility] Stop: 06/07/25 08:59 Last Infusion: 06/04/25 10:47 Dose: Infused Lorazepam (Lorazepam 0.5 Mg Tablet) 0.5 mg PO BEDTIME@1999 [facility] Last Admin: 06/03/25 21:03 Dose: 0.5 mg Lorazepam (Lorazepam 0.5 Mg Tablet) 0.5 mg PO DAILY PRN PRN Reason: Anxiety Last Admin: 06/04/25 08:37 Dose: 0.5 mg Magnesium Hydroxide (Milk Of Magnesia 30 Ml Oral.Susp) 30 ml PO DAILY PRN PRN Reason: Constipation Magnesium Oxide (Magnesium Oxide 400 Mg Tablet) 400 mg PO DAILY@0600 [facility] Last Admin: 06/04/25 06:22 Dose: 400 mg Melatonin (Melatonin 3 Mg Tablet) 6 mg PO BEDTIME PRN PRN Reason: Insomnia Methylprednisolone Sodium Succinate (Methylprednisolone Sod Succ 40 Mg/Ml Vial) 40 mg IVPUSH Q8H [facility] Last Admin: 06/04/25 14:23 Dose: 40 mg Morphine Sulfate (Morphine Sulfate 4 Mg/Ml Cartridge) 2 mg IVPUSH Q4H PRN; Protocol PRN Reason: Pain, Moderate(Pain Scale 4-6) Last Admin: 06/04/25 14:24 Dose: 2 mg Pt Owned (Budesonide -Glycopyr-Formoterol [Breztri Aerosphere ] 160-9-4.8 Mc 2 inhalation INHALE BID@0600,1800 [facility] Last Admin: 06/03/25 19:17 Dose: 2 inhalation Pt Owned ( Hyoscyamine Sulfate 0.125 Mg Tablet) 0.25 mg PO Q6H PRN PRN Reason: Abdominal Discomfort Nystatin (Nystatin Powder 15 Gm Bottle) 1 appl TOPICAL BID [facility]; Protocol Last Admin: 06/04/25 08:47 Dose: 1 appl Ondansetron HCl (Ondansetron Hcl 4 Mg/2 Ml Vial) 4 mg IVPUSH Q8H PRN PRN Reason: Nausea and Vomiting Oxcarbazepine (Oxcarbazepine 300 Mg Tablet) 300 mg PO BID@0600,1999 [facility] Last Admin: 06/04/25 06:22 Dose: 300 mg Pantoprazole Sodium (Pantoprazole Sodium 40 Mg/10 Ml Vial) 40 mg IVPUSH DAILY@06 [facility] Last Admin: 06/04/25 06:28 Dose: 40 mg Polyethylene Glycol (Polyethylene Glycol 3350 17 Gm Powd.Pack) 17 gm PO DAILY PRN PRN Reason: Constipation Prazosin HCl (Prazosin Hcl 1 Mg Capsule) 2 mg PO DAILY@1999 [facility]; Protocol Last Admin: 06/03/25 21:03 Dose: 2 mg Roflumilast (Roflumilast 500 Mcg Tablet) 500 mcg PO DAILY@06 [facility] Last Admin: 06/04/25 06:22 Dose: 500 mcg Sodium Chloride (0.9 % Sodium Chloride Flush 3 Ml Syringe) 3 ml IVFLUSH [facility] Last Admin: 06/04/25 16:29 Dose: 3 ml Verapamil HCl (Verapamil Hcl Sr 180 Mg Tablet.Er) 180 mg PO DAILY@06 [facility]; Protocol Last Admin: 06/04/25 06:22 Dose: 180 mg Home Medications ?Medication ?Instructions ?Recorded ?Confirmed ?Last Taken ?Type atorvastatin 80 mg tablet 80 mg PO DAILY@199903/04/23 06/01/25 05/31/25 History mczghkhexv-[id number]-rthrowgu 1 tab PO DAILY MRX1 PRN Migraine 03/04/23 06/01/25 04/07/25 History 50 mg-325 mg-40 mg tablet Headache duloxetine 60 mg capsule,delayed 60 mg PO BID@0600,199903/04/23 06/01/25 06/01/25 History release gabapentin 300 mg capsule 1,200 mg PO TID@0600,1200,199903/04/23 06/01/25 06/01/25 History hyoscyamine sulfate 0.125 mg tablet 0.25 mg PO Q6H PRN Abdominal 03/04/23 06/01/25 04/07/25 History Discomfort Oxygen Home Use 04/16/23 05/22/25 10/28/24 History prazosin 2 mg capsule 2 mg PO DAILY@199904/16/23 06/01/25 05/31/25 History albuterol sulfate 90 mcg/actuation 2 puff inhalation Q4H PRN 01/31/24 06/01/25 04/12/25 History aerosol inhaler Shortness Of Breath Or Wheezing aspirin 81 mg tablet,delayed 81 mg PO DAILY@199905/22/24 06/01/25 05/31/25 History release calcium 600 mg (as 1 tab PO DAILY@199906/20/24 06/01/25 05/31/25 History carbonate)-vitamin D3 5 mcg (200 unit) tablet baclofen 20 mg tablet 20 mg PO TID@0600,1200,199910/29/24 06/01/25 06/01/25 History aripiprazole 5 mg tablet (Abilify) 5 mg PO DAILY@0612/01/24 06/01/25 06/01/25 History oxcarbazepine 300 mg tablet 300 mg PO BID@599,199912/21/24 06/01/25 06/01/25 History lorazepam 0.5 mg tablet 0.5 mg PO BEDTIME@1999 MODERATE 01/04/25 06/01/25 05/31/25 History Anxiety polyethylene glycol 3350 17 17 g PO DAILY PRN Constipation 01/04/25 06/01/25 04/07/25 History gram/dose oral powder (Miralax) budesonide 160 mcg-glycopyr 9 2 inh inhalation BID@0600,1800 02/05/25 06/01/25 06/01/25 History mcg-formot 4.8 mcg/actuation HFA inhaler (Breztri Aerosphere) lorazepam 0.5 mg tablet 0.5 mg PO DAILY PRN Anxiety 02/05/25 06/01/25 04/07/25 History roflumilast 500 mcg tablet 500 mcg PO DAILY@0602/05/25 06/01/25 06/01/25 History (Justine) omeprazole 20 mg capsule,delayed 20 mg PO DAILY@0603/01/25 06/01/25 06/01/25 History release acetaminophen 650 mg 1,300 mg PO Q8H PRN Pain 03/13/25 06/01/25 04/07/25 History tablet,extended release magnesium oxide 400 mg PO DAILY@0600 03/13/25 06/01/25 06/01/25 History melatonin 3 mg tablet 3 mg PO BEDTIME PRN Insomnia 04/08/25 06/01/25 Unknown History oxycodone 5 mg tablet 5 mg PO Q6H PRN Severe Pain (Scale 04/08/25 06/01/25 04/07/25 History Score 7-10) chlorhexidine gluconate 0.12 % 15 ml buccal BID@06,199905/13/25 06/01/25 06/01/25 History mouthwash furosemide 20 mg tablet 20 mg PO DAILY@0606/01/25 06/01/25 06/01/25 History verapamil 180 mg tablet,extended 180 mg PO DAILY@0606/01/25 06/01/25 05/31/25 History release Physical Exam Vital Signs: Vital Signs: Last Vital Signs Temp 98.5 F 06/04/25 19:21 Pulse 77 06/04/25 19:21 Resp 18 06/04/25 19:21 BP 137/85 06/04/25 19:21 Pulse Ox 97 06/04/25 19:21 O2 Del Method Nasal Cannula 06/04/25 19:21 O2 Flow Rate 3 06/04/25 19:21 FiO2 25 06/01/25 11:34 Oxygen Flow Rate 8 06/01/25 09:41 BMI result Body Mass Index 42.9 Const: General: cooperative, comfortable and alert Orientation/consciousness: patient oriented x3 HEENT: Head: Yes normocephalic Neck: Neck: Yes supple Chest: Chest palpation & inspection: normal inspection of the chest Resp: Effort & Inspection: normal respiratory effort, able to speak in complete sentences and prolonged expiratory phase Auscultation: no wheezes and diminished lung sounds Cardio: Heart sounds: S1 normal heart sound present, S2 normal heart sound present and Murmur heart sound present GI: Palpation (GI): Soft to palpation Skin: General skin exam: no rashes or lesions noted Neuro: General: patient oriented x3 Extrem: General: No clubbing, No cyanosis and Yes edema Results Laboratory Findings 06/04/25 05:23 06/04/25 05:23 Abnormal lab findings: Abnormal Labs 06/01/25 06/01/25 06/02/25 10:20 10:26 08:50 RBC 3.79 L 3.82 L Hgb 11.5 L 11.5 L Hct 36.3 L 36.6 L Lymph % (Auto) 18.9 L VBG HCO3 32 H Sodium Potassium 3.2 L D Carbon Dioxide 30 H BUN 17 H Random Glucose 122 H 06/03/25 06/04/25 06:08 05:23 RBC 3.93 L 3.99 L Hgb 11.7 L Hct Lymph % (Auto) VBG HCO3 Sodium 146 H Potassium Carbon Dioxide 30 H 33 H BUN 17 H Random Glucose 119 H Assessment and Plan (1) Acute exacerbation of chronic obstructive pulmonary disease: Status: Acute (2) Hypogammaglobulinemia: Status: Acute (3) Chronic respiratory failure: Qualifiers: Respiratory failure complication: hypoxia and hypercapnia Qualified Code(s): J96.11 - Chronic respiratory failure with hypoxia; J96.12 - Chronic respiratory failure with hypercapnia Status: Acute (4) JUANITO (obstructive sleep apnea): Status: Acute Plan continue solumedrol continue nebs continue Breztri diuresis as tolerated Needs to use PAP therapy continue Daliresp Trial Theophylline Outpt reheb Dental procedure-ok continue oygen to keep pox 89-96% F/U with outpt Pulmonary-going to [facility] [place] Pulmonary soon Procedures Date of Service Date of Service: 06/04/25
[2025-06-04] MEDS: Theophylline Anhydrous ER 300 MG TAB.ER.12H 150 MG PO (20:13)
[2025-06-04] MEDS: Aspirin Enteric Coated 81 MG TABLET.DR PO (20:15)
[2025-06-05] MEDS: levalbuterol HCL 1.25 MG, Ipratropium Bromide 0.5 MG INHALE ×2 (00:47→08:08)
[2025-06-05 00:48] VITALS: PULSE 70; RESP 18; O2SAT 98
[2025-06-05 03:20] VITALS: BP 142/85; PULSE 66; RESP 16; TEMP 36.2; O2SAT 95
[2025-06-05] MEDS: Chlorhexidine Gluc Oral Rinse 15 ML MOUTHWASH BUCCAL (05:47)
[2025-06-05] MEDS: VerapamiL HCL SR 180 MG TABLET.ER PO (05:48)
[2025-06-05] MEDS: Albuterol Sulfate 90 MCG 8 GM INHALER 2 PUFF INHALE (06:02)
[2025-06-05 07:44] VITALS: BP 150/84; PULSE 73; RESP 16; TEMP 36.1; O2SAT 94
[2025-06-05 08:12] VITALS: PULSE 78; RESP 17; O2SAT 93
[2025-06-05] MEDS: 0.9 % Sodium Chloride Flush 3 ML SYRINGE IVFLUSH (09:30)
[2025-06-05] MEDS: Theophylline Anhydrous ER 300 MG TAB.ER.12H 150 MG PO (09:30)
[2025-06-05] MEDS: Calcium + Vitamin D 250 MG TABLET 500 MG PO (09:30)
--- NOTE | 2025-06-05 09:57 | PM.PNPUL ---
Subjective Subjective Date of Service: 06/05/25 Interval history: The patient was seen on exam. Still complaining of dyspnea on exertion. Has been using her oxygen. Did not tolerate the BiPAP last night because she has the dental pain does not allow her to tolerate it. Hopefully she can have her teeth extracted sometime in early June so she can start using her noninvasive ventilator to treat her JUANITO and also hypercarbic respiratory failure. The patient was started on theophylline. Seems to be tolerating it okay. Will check outpatient levels in order to titrate the medication accordingly. If the patient is stable she may be discharged in the late afternoon or early evening. Objective Data Labs 06/04/25 05:23 06/04/25 05:23 Review of Systems Constitutional: Denies fever(s) Eyes: Denies blurry vision and Denies itchy eyes Denies sinus pressure and Denies other ( Thrush) Cardiovascular: Denies chest pain, Reports pedal edema, Reports dyspnea, Reports dyspnea on exertion, Reports orthopnea and Denies paroxysmal nocturnal dyspnea Respiratory: Reports cough, Denies hemoptysis, Denies excessive phlegm production, Reports dyspnea, Reports dyspnea on exertion and Reports wheezing Gastrointestinal: Denies abdominal pain and Denies heartburn Musculoskeletal: Denies myalgias, Denies arthralgias and Denies joint swelling Skin/Breast: Denies rash Denies memory loss and Denies seizure-like activity Psychiatric: Denies abnormal sleep pattern, Denies anxiety and Denies memory loss Endocrine: Denies heat intolerance Hematologic/Lymphatic: Denies easy bruising Allergic/Immunologic: Denies itchy eyes, Denies seasonal rhinorrhea and Reports wheezing Physical Exam Vital Signs: Vital Signs: Last Vital Signs Temp 97.0 F 06/05/25 07:44 Pulse 78 06/05/25 08:12 Resp 17 06/05/25 08:12 BP 150/84 H 06/05/25 07:44 Pulse Ox 94 06/05/25 07:44 O2 Del Method Nasal Cannula 06/05/25 07:44 O2 Flow Rate 3 06/05/25 07:44 FiO2 25 06/01/25 11:34 Oxygen Flow Rate 8 06/01/25 09:41 BMI result Body Mass Index 42.9 Const: General: cooperative, comfortable and alert Orientation/consciousness: patient oriented x3 HEENT: Head: Yes normocephalic Neck: Neck: Yes supple Chest: Chest palpation & inspection: normal inspection of the chest Resp: Effort & Inspection: normal respiratory effort, able to speak in complete sentences and prolonged expiratory phase Auscultation: no wheezes and diminished lung sounds Cardio: Heart sounds: S1 normal heart sound present, S2 normal heart sound present and Murmur heart sound present GI: Palpation (GI): Soft to palpation Skin: General skin exam: no rashes or lesions noted Neuro: General: patient oriented x3 Extrem: General: No clubbing, No cyanosis and Yes edema Procedures Date of Service Date of Service: 06/05/25 Assessment and Plan Assessment and plan (1) JUANITO (obstructive sleep apnea): Status: Acute (2) Chronic respiratory failure: Status: Acute (3) Acute exacerbation of chronic obstructive pulmonary disease: Status: Acute (4) Acute dyspnea: Status: Acute (5) Hypogammaglobulinemia: Status: Acute (6) Tooth pain: Status: Acute Plan Switch over to prednisone with taper Continue nebulizer therapy twice a day Continue Breztri twice a day Continue theophylline twice a day. She will have theophylline levels checked in 1-2 weeks Okay to proceed with dental extraction as long as his with local anesthesia with Novocain. Will try to avoid epinephrine if able. Continue NIV therapy specially after her dental extraction and dental pain subside that she can use the therapy Follow-up as an outpatient. The patient is thinking about going to [facility] [place]. Time Spent With Patient Time: Total time managing care of this patient today ____ minutes. Progress Note: Quality Stroke Does the patient have a stroke diagnosis?: No
--- NOTE | 2025-06-05 10:34 | P.DS_ITS ---
DS: Providers Provider Date of admission: 06/01/25 13:44 Date of discharge: 06/05/25 Primary care physician: Antione Segura PA-C Consults: 06/04/25 09:28 Consult to Pulmonology Routine Consulting Provider: Denys Henriquez Reason for consultation: Shortness of breath Has provider been notified: No DS: Diagnosis Discharge Diagnosis (1) JUANITO (obstructive sleep apnea): Status: Acute (2) Chronic respiratory failure: Status: Acute (3) Acute exacerbation of chronic obstructive pulmonary disease: Status: Acute (4) Acute dyspnea: Status: Acute (5) Hypogammaglobulinemia: Status: Acute (6) Tooth pain: Status: Acute DS: Summary Hospital Course Hospital Course: 60-year-old female with past medical history significant for hypertension, hyperlipidemia, tobacco use disorder, asthma/COPD on home oxygen, JUANITO/ohs on home CPAP with noncompliance, trigeminal neuralgia, who presented to hospital complaining of worsening shortness of breath, that began earlier today. Patient mentions earlier today while walking she began feeling short of breath and decided to call EMS. Patient states that she has experienced multiple ED/urgent care visits at least 36 this year for similar complaints. Patient was recently seen in the ED, given steroid course with minimal improvement. Hospital Course Patient admitted to general medical floor. She was continued on supplemental oxygen and started on empiric ceftriaxone and azithromycin. She was also receiving pulse dose steroids. Over the course of her hospitalization she continued to improve essentially returned to baseline. She was seen in consultation by her yield analyst, Dr. Henriquez, who recommended addition of theophylline. She will be discharged on theophylline b.i.d. and follow up with Dr. Henriquez in office. A theophylline level fall be drawn prior to discharge to document. At this point she is medically acceptable for discharge Time Attestation Discharge Coordination Time (in mins): 35 Quality: Safe Use of Opioids Does Pt have an Active Cancer Diagnosis on the Problem List?: No Quality: Stroke Does the patient have a stroke diagnosis?: No Physical Exam Vital Signs: Vital Signs: Last Vital Signs Temp 97.0 F 06/05/25 07:44 Pulse 78 06/05/25 08:12 Resp 17 06/05/25 08:12 BP 150/84 H 06/05/25 07:44 Pulse Ox 94 06/05/25 07:44 O2 Del Method Nasal Cannula 06/05/25 07:44 O2 Flow Rate 3 06/05/25 07:44 FiO2 25 06/01/25 11:34 Oxygen Flow Rate 8 06/01/25 09:41 BMI result Body Mass Index 42.9 Const: Other: Awake alert comfortable in bed no respiratory distress noted Resp: Other: Diminished at bases with scattered expiratory wheezes Cardio: Other: No S4; positive S1-S2; no S3 murmurs rubs or gallops GI: Other: Soft nontender nondistended normoactive bowel sounds Extrem: Other: No edema bilaterally DS: Data Data Completed and Pending Completed studies during hospitalization [Text1]: Procedures Assistance with Respiratory Ventilation, Less than 24 Consecutive Hours, Continuous Positive Airway Pressure (05/13/25) Introduction of Vasopressor into Peripheral Vein, Percutaneous Approach (12/01/24) Discharge Plan Discharge Anticipated Discharge Date/Time: 06/05/25 10:21 Patient Disposition: Home Health Service Discharge Diagnosis: COPD exacerbation Referrals: Antione Segura PA-C [Primary Care Provider, Internal Medicine] - 1 Week Discharge Medications: New theophylline 300 mg Tablet Extended Release 12 Hr 150 mg PO BID Qty: 60 0RF prednisone 10 mg tablet See Rx Instructions .Route .COMPLEX Qty: 45 0RF Rx Instructions: 10 mg orally; 5 tabs p.o. daily x3 days; 4 tabs p.o. daily x3 days; 3 tabs daily x3 days; 2 tabs daily x3 days; 1 tab daily x3 days doxycycline hyclate 100 mg tablet 100 mg PO BID Qty: 14 0RF Continued ipratropium-albuterol 0.5 mg-3 mg(2.5 mg base)/3 mL solution for nebulization 3 ml inhalation Q4H PRN (Reason: for dyspnea) Qty: 180 11RF baclofen 20 mg tablet 20 mg PO TID@0600,1200,1999 aripiprazole [Abilify] 5 mg tablet 5 mg PO DAILY@0600 oxcarbazepine 300 mg tablet 300 mg PO BID@0600,1999 acetaminophen 650 mg Tablet Extended Release 1,300 mg PO Q8H PRN (Reason: Pain) magnesium oxide 400 mg magnesium Tablet 400 mg PO DAILY@0600 oxycodone 5 mg tablet 5 mg PO Q6H PRN (Reason: Severe Pain (Scale Score 7-10)) melatonin 3 mg Tablet 3 mg PO BEDTIME PRN (Reason: Insomnia) furosemide 20 mg tablet 20 mg PO DAILY@0600 verapamil 180 mg tablet extended release 180 mg PO DAILY@0600 Rx Instructions: Adjusting dose Stop 120mg bid and change to 180mg once daily ( doesnt want to make change for 2 weeks) atorvastatin 80 mg tablet 80 mg PO DAILY@1999 msgjpogpju-ecefqnerijvno-xixt 50-325-40 mg tablet 1 tab PO DAILY MRX1 PRN (Reason: Migraine Headache) hyoscyamine sulfate 0.125 mg tablet 0.25 mg PO Q6H PRN (Reason: Abdominal Discomfort) gabapentin 300 mg capsule 1,200 mg PO TID@0600,1200,1999 duloxetine 60 mg capsule,delayed release(DR/EC) 60 mg PO BID@0600,1999 (DME) nebulizer and compressor Device See Rx Instructions .Route Qty: 1 0RF Rx Instructions: As directed albuterol sulfate 90 mcg/actuation HFA aerosol inhaler 2 puff inhalation Q4H PRN (Reason: Shortness Of Breath Or Wheezing) aspirin 81 mg tablet,delayed release (DR/EC) 81 mg PO DAILY@1999 polyethylene glycol 3350 [Miralax] 17 gram/dose Powder 17 g PO DAILY PRN (Reason: Constipation) lorazepam 0.5 mg tablet 0.5 mg PO BEDTIME@1999 Breztri Aerosphere 160-9-4.8 mcg/actuation HFA aerosol inhaler 2 inh inhalation BID@0600,1800 lorazepam 0.5 mg tablet 0.5 mg PO DAILY PRN (Reason: Anxiety) roflumilast [Daliresp] 500 mcg tablet 500 mcg PO DAILY@0600 omeprazole 20 mg capsule,delayed release(DR/EC) 20 mg PO DAILY@0600 Anbesol (benzocaine) Max Str 20 % Gel 1 appl mucous membrane QID PRN (Reason: tooth pain) Qty: 1 0RF Protocol: Apply to: Apply to: tooth and gums chlorhexidine gluconate 0.12 % mouthwash 15 ml buccal BID@0600,1999 calcium carbonate-vitamin D3 600 mg-5 mcg (200 unit) tablet 1 tab PO DAILY@1999 prazosin 2 mg capsule 2 mg PO DAILY@1999 (DME) Oxygen Home Use Kit See Rx Instructions .Route Rx Instructions: As directed Discharge Orders: Discharge Order (Routine); Ordered 12/23/25 Ordered By: Gaudencio Ray Diet: Advance to usual diet Activity on Discharge: As tolerated Stand Alone Forms: Patient Portal Discharge page Print Language: Malay Care Plan Goals: Complete prednisone taper as ordered. You have been placed on a course of doxycycline to complete your antibiotic therapy. Theophylline has been added to your regimen. Take twice daily Health Concerns: Resume all other meds as taken prior to hospitalization Plan of Treatment: Follow up with your PCP and Pulmonary as scheduled Assessment: See discharge summary Patient Instructions: Chronic Lung Disease and Infection Prevention (DC)
--- NOTE | 2025-06-05 10:39 | P.F2F_ITS ---
Service Date Service Date: 06/05/25 Encounter Date of encounter: 06/05/25 Encounter: Acute hospitalization Reasons for Services Signs and symptoms assessed: Continue assessment of pulmonary status with O2 sats; gait and strength Reason for custodial: medication management and teach disease management Reason for physical therapy: home safety and mobility and therapeutic exercises Homebound: Leaving the home is medically contraindicated at this time without the asist of a device and/or another person due th the listed conditions above and below. Reason homebound: unsteady gait / fall risk and unable to drive Certification: Based on the above findings, I certify that this patient is confined to the home and needs intermittent custodial care, physical therapy and/or speech t herapy, or continues to need occupational therapy. The patient is under my care, and I have initiated the establishment of the plan of care. The patient will be followed by a physician who will periodically review the plan of care. Time Spent With Patient Time: Total time managing care of this patient today ____ minutes.
--- NOTE | 2025-06-05 11:24 | MHC.CM.PN ---
DP: PT HAS BEEN MEDICALLY CLEARED FOR DC HOME WITH RESUMPTION OF HOME CARE SERVICES WITH [facility]. [facility] NOTIFIED OF TODAY'S DC. PT'S SPOUSE WILL TRANSPORT.
[2025-06-11 07:43] LABS: Theophylline 5.0
== END 2025-06-05 11:36 | disposition home health service (06) | DRG 140 ==
LOC: HO.ED 10:02 → HO.EDOVER 13:44 → HO.S3 17:01
PROVIDERS: Admitting Provider Student in an Organized Health Care Education/Training Program; Emergency Provider Emergency Medicine; PCP Physician Assistant Surgical; Visit Provider Hospitalist
DX: J43.9 Emphysema, unspecified (principal); J96.21 Acute and chronic respiratory failure with hypoxia; I50.33 Acute on chronic diastolic (congestive) heart failure; D63.8 Anemia in other chronic diseases classified elsewhere; G89.4 Chronic pain syndrome; E87.6 Hypokalemia; E66.2 Morbid (severe) obesity with alveolar hypoventilation; D80.1 Nonfamilial hypogammaglobulinemia; Z68.41 Body mass index [BMI] 40.0-44.9, adult; Z20.822 Contact with and (suspected) exposure to COVID-19; Z99.81 Dependence on supplemental oxygen; Z79.82 Long term (current) use of aspirin; Z87.891 Personal history of nicotine dependence; Z79.899 Other long term (current) drug therapy
CPT/HCPCS: 36415; 71045; 71250; 80048; 80053; 80198; 82803; 83735; 83880; 84443; 84484; 85025; 85027; 85379; 87637; 93005; 93970; 94640; 94660; 97161; 97166; 99285; J0456; J0696; J1171; J1650; J1938; J2270; J2470; J2919

== ENCOUNTER → 2025-06-01 09:54 | Outpatient (BNV) | payer BC, SELFPAY | PROVIDERS: Admitting Provider Student in an Organized Health Care Education/Training Program; Emergency Provider Emergency Medicine; PCP Physician Assistant Surgical; Visit Provider Internal Medicine Cardiovascular Disease | DX: R06.00 Dyspnea, unspecified (principal) | CPT/HCPCS: 93010 ==

== ENCOUNTER → 2025-06-01 09:54 | Outpatient (BNV) | payer BC, SELFPAY | PROVIDERS: Emergency Provider Emergency Medicine; PCP Physician Assistant Surgical; Visit Provider Radiology Diagnostic Radiology | DX: R06.02 Shortness of breath (principal); R60.0 Localized edema; R91.8 Other nonspecific abnormal finding of lung field | CPT/HCPCS: 71045; 71250; 93970 ==

== ENCOUNTER → 2025-06-01 13:44 | Outpatient (BNV) | payer BC, SELFPAY | PROVIDERS: Admitting Provider Student in an Organized Health Care Education/Training Program; Emergency Provider Emergency Medicine; PCP Physician Assistant Surgical; Visit Provider Student in an Organized Health Care Education/Training Program | DX: J96.11 Chronic respiratory failure with hypoxia (principal); J96.12 Chronic respiratory failure with hypercapnia; J44.1 Chronic obstructive pulmonary disease with (acute) exacerbation; D80.1 Nonfamilial hypogammaglobulinemia; K08.89 Other specified disorders of teeth and supporting structures | CPT/HCPCS: 99239; G0180 ==

== ENCOUNTER → 2025-06-01 13:44 | Outpatient (BNV) | payer BC, SELFPAY | PROVIDERS: Admitting Provider Student in an Organized Health Care Education/Training Program; Emergency Provider Emergency Medicine; PCP Physician Assistant Surgical; Visit Provider Hospitalist | DX: G47.33 Obstructive sleep apnea (adult) (pediatric) (principal); J96.11 Chronic respiratory failure with hypoxia; J96.12 Chronic respiratory failure with hypercapnia; J44.1 Chronic obstructive pulmonary disease with (acute) exacerbation; R06.00 Dyspnea, unspecified; D80.1 Nonfamilial hypogammaglobulinemia; K08.89 Other specified disorders of teeth and supporting structures | CPT/HCPCS: 99233; 99253 ==